=== PATIENT | male | born 1955 | race Caucasian/White ===

== ENCOUNTER 2018-07-09 21:14 | Emergency (ER) | payer BC, SELFPAY ==
[2018-07-09 21:19] VITALS: BP 154/88; PULSE 92; RESP 18; TEMP 37; O2SAT 97
--- NOTE | 2018-07-09 21:26 | W.ED.GENAD ---
Discharge Plan Disposition Patient Disposition: HOME Condition: Good Discharge Details Chief Complaint: GenMedical Clinical Impression: Bleeding Primary Care Provider: Francis Garza ED Provider: Josr Hill Home Meds and New Rx's Prescriptions: No Action multivitamin [Daily Vitamin] 1 EACH tablet 1 ea PO DAILY RF: 0 sildenafil [Viagra] 100 MG tablet 50 mg PO DAILY PRNQty: 10 RF: 11 ibuprofen [Advil] 200 MG tablet 400 mg PO Q6H PRN RF: 0 clotrimazole 45 GM cream 1 mindy Topical BID Qty: 1 RF: 0 diltiazem HCl 240 MG capsule,ext.rel 24h degradable 240 mg PO DAILY Qty: 90 RF: 3 rivaroxaban [Xarelto] 15 MG tablet 15 mg PO DAILY Qty: 90 RF: 3 furosemide [Lasix] 20 MG tablet 20 mg PO DAILY Qty: 90 RF: 3 losartan 50 MG tablet 50 mg PO DAILY Qty: 90 RF: 3 tramadol 50 MG tablet 50 mg PO QID PRN MDD 4 30 Days Qty: 120 RF: 0 magnesium oxide 400 MG tablet 400 mg PO BID Qty: 60 RF: 0 metoprolol tartrate 100 MG tablet 100 mg PO DAILY RF: 0 Discharge Instructions Instructions: Acute Wound Care (ED), Abrasion (ED) Additional Instructions: Please keep the area covered in bandage. Do not scratch at the area. If you notice any rebleeding return immediately. If you notice any worsening of your symptoms, or any new symptoms such as vomiting, diarrhea, fever, chills, shortness of breath, chest pain, numbness, weakness, or fainting , please return immediately to the emergency department for reevaluation. Please follow up with your primary care provider as soon as possible for reassessment and reevaluation. As always, it was a pleasure participating in your medical care today. Referrals: Francis Garza MD [Primary Care Provider] - Medical Decision Making This is a 63-year-old male who is on Xarelto for atrial fibrillation who presents today for evaluation of bleeding in his left lower foot. He scratched a scab, and then had bleeding after this. Roughly 30 minutes prior to arrival this occurred. It was wrapped and pressure gauze by EMS on their arrival, and he was brought immediately to the ER for evaluation. On evaluation in the ER the bleeding had completely subsided. The area was cleaned, and no bleeding is present. Patient will be discharged home with close follow-up. We discussed red flags which to return, the importance of keeping the foot elevated, and avoiding any trauma or scratching. Patient understands. Physical exam shows no signs of cellulitis, concerning edema, calf edema or calf pain. I have extensively reviewed the treatment plan and discharge instructions with the patient and their family. I have addressed all patient concerns at this time. The patient and family was made aware of what symptoms to monitor for that would warrant a return to the emergency department. Discussed the plan with the patient and family, they demonstrate verbal understanding and agreement with our assessment and plan at this time. HPI General Date/Time Provider Initiated Documentation: 07/09/18 21:25. HPI Narrative: This is a 63-year-old male who is on Xarelto for atrial fibrillation who presents today for bleeding. The patient states that he had a scab on his left lower ankle, which he picked at this evening, there is notable bleeding after this. EMS was called they applied a pressure dressing and brought him immediately to the ER. He thought that there was some squirting at the initial onset. He denies any lightheadedness, tachycardia, chest pain, fever, chills, warmth, pain, leg pain, numbness tingling or weakness. He denies any trauma or any other complaints. Related Data Home Medications Medication Instructions Recorded Confirmed multivitamin [Daily Vitamin] 1 ea PO DAILY 03/20/13 07/09/18 magnesium oxide 400 mg PO BID #60 tab 06/30/14 07/09/18 sildenafil [Viagra] 50 mg PO DAILY PRN #10 tab 11/26/14 07/09/18 ibuprofen [Advil] 400 mg PO Q6H PRN tab-cap 12/02/15 07/09/18 clotrimazole 1 mindy TOPICAL BID #1 tube 01/17/16 07/09/18 diltiazem HCl 240 mg PO DAILY #90 cap.er.deg 07/24/16 07/09/18 rivaroxaban [Xarelto] 15 mg PO DAILY #90 tab-cap 07/24/16 07/09/18 furosemide [Lasix] 20 mg PO DAILY #90 tab 10/25/16 07/09/18 losartan 50 mg PO DAILY #90 tab-cap 11/10/16 07/09/18 metoprolol tartrate 100 mg PO DAILY 02/15/17 07/09/18 tramadol 50 mg PO QID PRN 30 Days #120 tab 07/31/17 07/09/18 MDD 4 Previous Rx's Medication Instructions Recorded magnesium oxide 400 mg PO BID #60 tab 06/30/14 tramadol 50 mg PO QID PRN 30 Days #120 tab 07/31/17 MDD 4 Allergies Allergy/AdvReac Type Severity Reaction Status Date / Time No Known Allergies Allergy Unverified 09/25/17 13:16 General Stated Complaint: GenMedical RICKIE: 4 Review of Systems Review of Systems 10 point review of systems was performed, pertinent positives and negatives are noted in the history of present illness. PFSH Family History Grandfather Diabetes Grandmother Diabetes Medical History Anxiety Atrial fibrillation Dilated aortic root Diverticulosis Essential hypertension Pulmonary hypertension Vitamin D deficiency broken rt thumb (10/10/16) Social History Smoking/Tobacco Use Status: Former Tobacco Use Surgical History Colonoscopy - IV Sedation (01/15/15) Right knee surgery after injury Exam Narrative Exam Narrative: 1.Const: Well-nourished, Well-developed, appearing stated age 2.Eyes: PERRL, no conjunctival injection, and symmetrical lids. 3.ENT: Atraumatic external nose and ears. Moist MM. Neck: Symmetric, trachea midline, No thyromegaly. 4.CVS: +S1/S2, No murmurs or gallops. Peripheral pulses 2+ and equal in all extremities. Brisk capillary refill in all extremities. 5.RESP: Unlabored respiratory effort. Clear to auscultation bilaterally. No wheezes rales or rhonchi 6.GI: Soft, Nontender/Nondistended, No hepatosplenomegaly. No guarding or rebound. 7.MSK: Normocephalic/Atraumatic, Extremities w/o deformity or ttp No cyanosis or clubbing, Normal movement of all extremities 8.Skin: Patient demonstrates normal upper extremities bilaterally. Lower extremities demonstrate mild edema bilaterally, +1 pitting edema. Brisk capillary refill in all toes. Dorsalis pedis pulse +1 bilaterally. Left lower extremity demonstrates a small scab that has no acute bleeding at this time. No evidence of oozing. No other abnormalities. The area was cleaned and dried, there appears to be no evidence of laceration, or current bleeding. The area was wrapped with gauze for protection 9.Neuro: vice president of procurement II-XII grossly intact. Sensation grossly intact, no focal neurologic deficits. 10.Psych: (AAO) x3. Appropriate mood and affect Course Vital Signs Temperature 37.0 C 07/09/18 21:19 Pulse 92 H 07/09/18 21:19 Respiratory Rate 18 07/09/18 21:19 Blood Pressure 154/88 H 07/09/18 21:19 Pulse Oximetry 97 07/09/18 21:19 Temperature 37.0 C 07/09/18 21:19 Temperature Source Temporal Artery Scan 07/09/18 21:19 Pulse 92 H 07/09/18 21:19 Respiratory Rate 18 07/09/18 21:19 Respiratory Effort 07/09/18 21:21 Blood Pressure 154/88 H 07/09/18 21:19 Blood Pressure Position Sitting 07/09/18 21:19 Pulse Oximetry 97 07/09/18 21:19 Oxygen Delivery Method Room Air 07/09/18 21:19 Oxygen Flow Rate 0 07/09/18 21:19
[2018-07-09 21:47] VITALS: BP 154/88; PULSE 92; RESP 18; TEMP 37; O2SAT 97
[2018-07-10] MEDS: Silver Nitrate Stick 1 EACH (01:33)
== END 2018-07-09 21:47 | disposition home or self-care (01) ==
LOC: ER 21:44
PROVIDERS: Emergency Provider Student in an Organized Health Care Education/Training Program; PCP General Practice
DX: S90.812A Abrasion, left foot, initial encounter (principal); W26.8XXA Contact with other sharp object(s), not elsewhere classified, initial encounter; Z79.01 Long term (current) use of anticoagulants; I48.91 Unspecified atrial fibrillation; I10 Essential (primary) hypertension
CPT/HCPCS: 99283

== ENCOUNTER 2019-01-14 10:57 | Outpatient (CLI) | payer BC, SELFPAY ==
[2019-01-14 12:29] LABS: Hemoglobin A1C 6.4 % (4.5-6.2)
[2019-01-14 15:02] LABS: ALT 26 U/L (12-78); AST 17 U/L (15-37); Alkaline Phosphatase 105 U/L (46-116); Anion Gap 11.2 mmol/L (3-11); BUN 22 mg/dL (7-18); Bilirubin, Total 0.5 mg/dL (0.2-1.0); CO2 26.8 mmol/L (21.0-32.0); CREATININE 1.23 mg/dL (0.70-1.30); Chloride 97 mmol/L (98-107); Estimated GFR 59.24 (mL/min/1.73m2); Potassium 4.4 mmol/L (3.5-5.1); Sodium 135 mmol/L (136-145)
== END 2019-01-14 11:17 ==
PROVIDERS: PCP General Practice; Visit Provider General Practice
DX: I10 Essential (primary) hypertension (principal); R73.09 Other abnormal glucose
CPT/HCPCS: 36415; 80051; 84520; 82247; 82565; 83036; 84075; 84450; 84460

== ENCOUNTER 2020-07-09 10:23 | Emergency (ER) | payer OTHER, SELFPAY ==
[2020-07-09 10:33] VITALS: BP 160/94; PULSE 95; RESP 16; TEMP 36.4; O2SAT 97
--- NOTE | 2020-07-09 10:48 | ED.GENADUL_ITS ---
Discharge Plan Disposition Patient Disposition: HOME Condition: Stable Discharge Details Clinical Impression: Cellulitis, Open wound of lower leg Primary Care Provider: Destine[facility],Local ED Provider: Jacqueline Tejeda Home Meds and New Rx's Prescriptions: New cephalexin 500 mg tablet 500 mg PO BID 7 Days Qty: 14 RF: 0 Continued multivitamin [Daily Vitamin] 1 EACH tablet 1 ea PO DAILY RF: 0 ibuprofen [Advil] 200 MG tablet 400 mg PO Q6H PRN RF: 0 diltiazem HCl 240 MG capsule,ext.rel 24h degradable 240 mg PO DAILY Qty: 90 RF: 3 Xarelto 15 MG tablet 15 mg PO DAILY Qty: 90 RF: 3 losartan 50 MG tablet 50 mg PO DAILY Qty: 90 RF: 3 furosemide [Lasix] 20 mg tablet 20 mg PO DAILY Qty: 90 RF: 3 magnesium oxide 400 MG tablet 400 mg PO BID Qty: 60 RF: 0 metoprolol tartrate 100 MG tablet 100 mg PO DAILY RF: 0 Discharge Instructions Instructions: Cellulitis (ED), Acute Wounds (ED) Additional Instructions: Keep dressing on leg for the next 24 hours. Keep clean and dry. Apply pressure for 15 minutes if recurrent bleeding. Return to the ED if no stopping and bleeding. Increase your Lasix to 3 tablets a day for the next 2 days. You have been placed on a care management list to help establish PCP. Follow up with primary care provider in 3-5 days. Return to ED sooner if any worsening or concerns. Increase oral fluids. Medical Decision Making 65-year-old male presents to the ER with left lower extremity bleeding and an open wound. Patient denies any known trauma he reports having an episode of cellulitis and noted some drainage to his left lower extremity which turned in to bleeding he was unable to get the blood to stop. Upon initial exam he has a maxi pad wrapped around his ankle which is saturated in blood. He does have some erythema and some 2-3+ pitting edema noted to his bilateral lower extremities. Worse on the right. He has a small open wound noted to his left lower extremity which is oozing clear liquid no active bleeding noted at this time. He does have a history of atrial fibrillation, diverticulosis, hypertension, pulmonary hypertension, COPD, cellulitis, dilated aortic root. He does take Xarelto. He reports mild subjective fever couple days ago. He does not have a primary care provider at this time. 1219: No further bleeding noted from wound. There is clear fluid draining from leg. At this time chest x-ray pending. COMPARISON: CR CHEST 2 VIEWS PA,LAT from 04/19/2015 FINDINGS: MEDIASTINUM: Normal. HEART: Upper limits of normal. PULMONARY VASCULATURE: Normal. LUNGS: Clear. PLEURAL SPACE: No pleural effusion or pneumothorax. BONE:Within normal limits for the patient's age. OTHER FINDINGS:Normal. IMPRESSION: No acute pulmonary findings. CBC shows hemoglobin 11.9, hematocrit 36.8, sodium 135 which is at his baseline. BUN 47, creatinine 1.91, glucose 193 BNP is 2524. Patient was given Lasix 20 mg IV here in department. Ceftriaxone 1 g IV piggyback was also given. At this time findings are consistent with cellulitis and fluid overload. Patient placed on wound care management follow-up list to establish PCP. Instructed to increase Lasix to 3 times a day over the next couple of days. Discussed strict return instructions, verbalized understanding. HPI General Mode of arrival: ambulatory . Date/Time Provider Initiated Documentation: 07/09/20 10:29 . Limitations to Documentation: no limitations . Information obtained by: patient . HPI Narrative: 65-year-old male presents to the ER with left lower extremity bleeding and an open wound. Patient denies any known trauma he reports having an episode of cellulitis and noted some drainage to his left lower extremity which turned into bleeding he was unable to get the blood to stop. Upon initial exam he has a maxi pad wrapped around his ankle which is saturated in blood. He does have some erythema and some 2-3+ pitting edema noted to his bilateral lower extremities. Worse on the right. He has a small open wound noted to his left lower extremity which is oozing clear liquid no active bleeding noted at this time. He does have a history of atrial fibrillation, diverticulosis, hypertension, pulmonary hypertension, COPD, cellulitis, dilated aortic root. He does take Xarelto. He reports mild subjective fever couple days ago. He does not have a primary care provider at this time. Related Data Home Medications Medication Instructions Recorded Confirmed multivitamin [Daily Vitamin] 1 ea PO DAILY 03/20/13 07/09/20 magnesium oxide 400 mg PO BID #60 tab 06/30/14 07/09/20 ibuprofen [Advil] 400 mg PO Q6H PRN tab-cap 12/02/15 07/09/20 Xarelto 15 mg PO DAILY #90 tab-cap 07/24/16 07/09/20 diltiazem HCl 240 mg PO DAILY #90 cap.er.deg 07/24/16 07/09/20 losartan 50 mg PO DAILY #90 tab-cap 11/10/16 07/09/20 metoprolol tartrate 100 mg PO DAILY 02/15/17 07/09/20 furosemide 20 mg tablet 20 mg PO DAILY #90 tab 11/04/18 07/09/20 cephalexin 500 mg PO BID 7 Days #14 tab 07/09/20 Previous Rx's Medication Instructions Recorded magnesium oxide 400 mg PO BID #60 tab 06/30/14 furosemide 20 mg tablet 20 mg PO DAILY #90 tab 11/04/18 cephalexin 500 mg PO BID 7 Days #14 tab 07/09/20 Allergies Allergy/AdvReac Type Severity Reaction Status Date / Time No Known Allergies Allergy Unverified 09/25/17 13:16 General Stated Complaint: GenMedical RICKIE: 3 Review of Systems Narrative: Constitutional: Negative for weight loss, alert and oriented, well groomed, normal body habitus, appears comfortable. HEENT: Denies trauma, headaches, blurry vision, nasal discharge, sore throat, trouble swallowing. Chest: Denies chest pain, palpitations, irregular rhythm, positive history of hypertension. Respiratory: Denies cough, hemoptysis. Positive shortness of breath history of COPD. GI: Denies abdominal pain, nausea, vomiting, diarrhea, constipation. : Denies dysuria, hematuria, flank pain, rectal bleeding. Extremities: Has what appears to be chronic cellulitis and swelling to bilateral lower extremities, erythema, has an open wound noted to his left lower extremity which he reports was bleeding this morning. Neuro: Denies dizziness, blurry vision, weakness, syncope, headache or facial numbness. Hematologic: Denies intolerance to heat or cold, hair loss. [facility] Medical History Anxiety Atrial fibrillation broken rt thumb (10/10/16) Dilated aortic root Diverticulosis Essential hypertension Pulmonary hypertension Vitamin D deficiency Surgical History Colonoscopy - IV Sedation (01/15/15) Dr Templeton Right knee surgery after injury Family History Grandfather Diabetes Grandmother Diabetes Social History Smoking/Tobacco Use Status: Former Tobacco Use Alcohol Intake: current Alcohol Intake frequency: 0-2 drinks per day Alcohol type: beer Drug use: Rarely Substance use type: marijuana Do you feel safe at home: Yes Do you feel safe in your relationship?: Yes Exam Narrative Exam Narrative: Constitutional: Alert and oriented x3. Appears stated age. Obese body habitus. Head: Normocephalic, no trauma. Eyes: Pupils PERRLA, Red reflex noted, EOM's intact. Eyelids symmetrical without lesions, discharge, or swelling. ENT: Bilateral TM's WNL, External ear normal to inspection, no mastoid TTP, swelling, or erythema, Nasal turbinates WNL, no nasal discharge. Normal dentition, Posterior pharynx WNL, no exudate. Chest: RRR, Normal S1, S2, distal pulses intact. Resp: Lungs clear to auscultation bilaterally, no wheezes, rales, or rhonchi. Musculoskeletal: Normal gait, has 2-3+ pitting edema noted to his lower extrem ities. Which appears to be chronic. Has a abrasion noted to his left lower extremity approximately 3 cm x 2 cm, there is clear liquid oozing, no active bleeding at this time. Skin: No suspicious rashes or lesions. Capillary refill less than 2 sec. Neurologic: Cranial nerves II-XII intact. Alert and oriented x 3. DTR's intact. Hematologic/Lymphatic: No ecchymosis, no lymphadenopathy. Course Vital Signs Vital signs: Vital Signs Temperature 36.4 C L 07/09/20 10:33 Pulse 95 H 07/09/20 10:33 Respiratory Rate 16 07/09/20 10:33 Blood Pressure 160/94 H 07/09/20 10:33 Pulse Oximetry 97 07/09/20 10:33 Temperature 36.4 C L 07/09/20 10:33 Temperature Source Tympanic 07/09/20 10:33 Pulse 95 H 07/09/20 10:33 Respiratory Rate 16 07/09/20 10:33 Respiratory Effort Non-Labored 07/09/20 10:35 Blood Pressure 160/94 H 07/09/20 10:33 Blood Pressure Position Sitting 07/09/20 10:33 Pulse Oximetry 97 07/09/20 10:33 Oxygen Delivery Method Room Air 07/09/20 10:33 Oxygen Flow Rate 0 07/09/20 10:33 Pain Level 0 07/09/20 10:33 Lab/Test Results Lab/Test Results: 07/09/20 10:45 Blood Blood Culture - Pending 07/09/20 10:45 Blood Blood Culture - Pending
[2020-07-09 11:13] VITALS: RESP 16
[2020-07-09 11:17] LABS: Abs Immature Grans 0.02 10^3/uL (0.0-0.06); Absolute Basophil Count 0.03 10^3/uL (0.0-0.2); Absolute Eosinophil Count 0.16 10^3/uL (0.0-0.7); Absolute Monocyte Count 0.96 10^3/uL (0.1-0.8); Absolute Neutrophil Count 6.77 10^3/uL (1.2-6.7); Basophils % 0.4; Eosinophils % 1.9; HCT 36.8 % (40.0-50.0); HGB 11.9 g/dL (13.5-17.5); Immature Grans % 0.2; Lymphocytes % 5.9; MCH 31.6 pg (27.0-33.0); MCHC 32.3 % (32.0-36.0); MCV 97.6 fL (80-95); MPV 11.3 fL (8.0-11.0); Monocytes % 11.4; Neutrophils % 80.2; Nucleated RBC 0 %; Platelet Count 194 10^3/uL (130-400); RBC 3.77 10^6/uL (4.36-5.78); RDW 14.8 % (11.8-14.1); RDW-SD 53.3 fL; WBC 8.44 10^3/uL (4.4-10.8)
[2020-07-09 11:52] LABS: ALT 49 U/L (16-63); AST 38 U/L (15-37); Albumin 2.8 g/dL (3.4-5.0); Alkaline Phosphatase 108 U/L (46-116); Anion Gap 6.4 mmol/L (3-11); BUN 47 mg/dL (7-18); Bilirubin, Total 0.3 mg/dL (0.2-1.0); CO2 26.6 mmol/L (21.0-32.0); CREATININE 1.91 mg/dL (0.70-1.30); Calcium 9.3 mg/dL (8.5-10.1); Chloride 102 mmol/L (98-107); Estimated GFR 35.43 (mL/min/1.73m2); Glucose 193 mg/dL (74-106); Potassium 4.8 mmol/L (3.5-5.1); Sodium 135 mmol/L (136-145); Total Protein 7.9 g/dL (6.4-8.2)
[2020-07-09 11:58] LABS: NT-proBNP 2524 pg/mL (<300)
--- NOTE | 2020-07-09 12:28 | DI.RAD_ITS ---
EXAM: XR CHEST 2V PA LATERAL CLINICAL HISTORY: Leg swelling TECHNIQUE: 2D digital imaging was performed. COMPARISON: CR CHEST 2 VIEWS PA,LAT from 04/19/2015 FINDINGS: MEDIASTINUM: Normal. HEART: Upper limits of normal. PULMONARY VASCULATURE: Normal. LUNGS: Clear. PLEURAL SPACE: No pleural effusion or pneumothorax. BONE:Within normal limits for the patient's age. OTHER FINDINGS:Normal. IMPRESSION: No acute pulmonary findings. DATA REPOSITORY: RADIATION DOSE DELIVERED:
[2020-07-09] MEDS: Furosemide 20 MG/2 ML VIAL IVP (12:34)
[2020-07-09] MEDS: cefTRIAXone 1 GM/50 ML BAG IVPB (12:34)
[2020-07-09 12:38] VITALS: BP 156/71; PULSE 88; RESP 16; TEMP 36.6; O2SAT 98
--- NOTE | 2020-07-09 13:11 | NUR.NOTE ---
refferal to care management for PCP establishment. [facility] ED Nursing Note:
--- NOTE | 2020-07-10 19:50 | W.ED.FU ---
Reviewed blood culture aerobic growing gram positive cocci in chains and anaerobic gram-positive cocci in chains. I called and spoke with the patient he notes significant improvement in how he feels overall taking Keflex as prescribed. I advised given potential bacteremia he should return the emergency department immediately for reassessment likely IV antibiotics and admission. Patient notes he understands my concern and will return but probably not till the morning. He understands that condition may worsen and the delay in reassessment could result in worsening condition and could be life-threatening.
[2020-07-12 08:38] LABS: Lactate 1.3 mmol/L (0.9-1.7)
== END 2020-07-09 13:15 | disposition home or self-care (01) ==
PROVIDERS: Emergency Provider Registered Nurse Emergency
DX: L03.116 Cellulitis of left lower limb (principal); S81.802A Unspecified open wound, left lower leg, initial encounter; X58.XXXA Exposure to other specified factors, initial encounter; R60.0 Localized edema; Z79.01 Long term (current) use of anticoagulants; I10 Essential (primary) hypertension; J44.9 Chronic obstructive pulmonary disease, unspecified; Z87.891 Personal history of nicotine dependence
CPT/HCPCS: 36415; 80053; 87040; 87077; 96365; 96375; 99284; 71046; 83605; 83880; 85025; 87186; J0696; J1941

== ENCOUNTER 2020-07-11 07:44 | Inpatient (IN) | payer OTHER, SELFPAY ==
[2020-07-11 07:56] VITALS: BP 132/78; PULSE 99; TEMP 37.1; O2SAT 93
--- NOTE | 2020-07-11 08:16 | W.ED.GENAD ---
Discharge Plan Disposition Patient Disposition: [facility] INPATIENT Condition: Stable Discharge Details Clinical Impression: Cellulitis, CHF (congestive heart failure) Admit Date/Time: 07/11/20 09:35 Admit Provider: Georgie Hong Attending Provider: Georgie Hong Primary Care Provider: [place],[facility] ED Provider: Jacqueline Tejeda Medical Decision Making 65-year-old male presents to the ER after return of positive blood cultures. He was seen in the ED by myself 2 days ago diagnosed with bilateral lower extremity cellulitis and placed on cephalexin. Patient states that he has been taking the cephalexin as prescribed and overall feels better. Denies any fever or chills. His bilateral lower extremities have continued to weep no further bleeding noted. 2 days ago he did have some bleeding from a open lesion noted to his left lower extremity. Blood cultures from 2 days ago showed gram-positive cocci in both blood cultures. He does have a past medical history of hypertension, atrial fib, diverticulosis. He is a former smoker, endorses occasional alcohol. At this time will consult hospitalist regarding possible admission IV antibiotic of cefazolin ordered. Patient did receive ceftriaxone 1 g IV piggyback 2 days ago here in department and has been taking cephalexin twice daily for the last 2 days. 0933: Spoke with Dr. Hong discussed patient case in details she agrees to admit patient at this time. She does recommend chest x-ray, repeat blood cultures x2, and bilateral venous Dopplers of the lower extremities. Orders per her recommendations placed. Informed patient of plan of care he verbalizes understanding. Exam: XR Chest, 2 Views Exam date and time: 07/11/2020 10:34 AM Age: 65 years old Clinical indication: Shortness of breath; Patient HX: SOB TECHNIQUE: Imaging protocol: XR of the chest Views: 2 views. COMPARISON: CR XR CHEST 2V PA LATERAL 07/09/2020 12:18 PM FINDINGS: Lungs: The lungs are normally expanded and clear. Pleural space: Normal. Heart/Mediastinum: Normal heart and cardiomediastinal silhouette. Vasculature: Normal pulmonary vessel caliber. Normal aorta. Bones/joints: Contiguous calcification of the anterior spinal ligaments indicating diffuse idiopathic skeletal hyperostosis (DISH). IMPRESSION: No acute disease or suspicious finding. Thank you for allowing us to participate in the care of your patient. Dictated and Authenticated by: Milad Gil MD Patient admitted. HPI General Mode of arrival: ambulatory. Date/Time Provider Initiated Documentation: 07/11/20 07:59. Limitations to Documentation: no limitations. Information obtained by: patient. HPI Narrative: 65-year-old male presents to the ER after return of positive blood cultures. He was seen in the ED by myself 2 days ago diagnosed with bilateral lower extremity cellulitis and placed on cephalexin. Patient states that he has been taking the cephalexin as prescribed and overall feels better. Denies any fever or chills. His bilateral lower extremities have continued to weep no further bleeding noted. 2 days ago he did have some bleeding from a open lesion noted to his left lower extremity. Blood cultures from 2 days ago showed gram-positive cocci in both blood cultures. He does have a past medical history of hypertension, atrial fib, diverticulosis. He is a former smoker, endorses occasional alcohol. Related Data Home Medications Medication Instructions Recorded Confirmed multivitamin [Daily Vitamin] 1 ea PO DAILY 03/20/13 07/11/20 magnesium oxide 400 mg PO BID #60 tab 06/30/14 07/11/20 ibuprofen [Advil] 400 mg PO Q6H PRN tab-cap 12/02/15 07/11/20 Xarelto 15 mg PO DAILY #90 tab-cap 07/24/16 07/11/20 diltiazem HCl 240 mg PO DAILY #90 cap.er.deg 07/24/16 07/11/20 losartan 50 mg PO DAILY #90 tab-cap 11/10/16 07/11/20 metoprolol tartrate 200 mg PO BID 02/15/17 07/11/20 cephalexin 500 mg PO BID 7 Days #14 tab 07/09/20 07/11/20 furosemide [Lasix] 20 mg PO TID 07/11/20 07/11/20 Previous Rx's Medication Instructions Recorded magnesium oxide 400 mg PO BID #60 tab 06/30/14 cephalexin 500 mg PO BID 7 Days #14 tab 07/09/20 Allergies Allergy/AdvReac Type Severity Reaction Status Date / Time No Known Allergies Allergy Unverified 07/11/20 08:00 General Stated Complaint: Cellulitis RICKIE: 3 Review of Systems Narrative: Constitutional: Negative for weight loss, alert and oriented, well groomed, normal body habitus, appears comfortable. HEENT: Denies trauma, headaches, blurry vision, nasal discharge, sore throat, trouble swallowing. Chest: Denies chest pain, palpitations, irregular rhythm, hypertension. Respiratory: Denies Shortness of breath, cough, hemoptysis. GI: Denies abdominal pain, nausea, vomiting, diarrhea, constipation. : Denies dysuria, hematuria, flank pain, rectal bleeding. Neuro: Denies dizziness, blurry vision, weakness, syncope, headache or facial numbness. Hematologic: Denies easy bruising, intolerance to heat or cold, hair loss. [facility] Medical History Anxiety Atrial fibrillation broken rt thumb (10/10/16) Dilated aortic root Diverticulosis Essential hypertension Pulmonary hypertension Vitamin D deficiency Surgical History Colonoscopy - IV Sedation (01/15/15) Dr Templeton Right knee surgery after injury Family History Grandfather Diabetes Grandmother Diabetes Social History Smoking/Tobacco Use Status: Former Tobacco Use Alcohol Intake: current Alcohol Intake frequency: 0-2 drinks per day Alcohol type: beer Drug use: Rarely Substance use type: marijuana Do you feel safe at home: Yes Do you feel safe in your relationship?: Yes Exam Narrative Exam Narrative: Constitutional: Alert and oriented x3. Appears stated age. Normal body habitus. Head: Normocephalic, no trauma. Eyes: Pupils PERRLA, Red reflex noted, EOM's intact. Eyelids symmetrical without lesions, discharge, or swelling. ENT: Bilateral TM's WNL, External ear normal to inspection, no mastoid TTP, swelling, or erythema, Nasal turbinates WNL, no nasal discharge. Normal dentition, Posterior pharynx WNL, no exudate. Chest: RRR, Normal S1, S2, distal pulses intact. Resp: Lungs clear to auscultation bilaterally, no wheezes, rales, or rhonchi. Musculoskeletal: Normal gait, Skin: 4+ pitting edema noted to his right lower extremity erythema extending up to his right knee. 3+ pitting edema noted to his left lower extremity positive erythema, open wound noted to his left lateral ankle bilateral lower extremities are weeping. Chronic appearing skin pigmentation changes, there is a varicose vein noted to his anterior left lower extremity some dried blood noted. Neurologic: Cranial nerves II-XII intact. Alert and oriented x 3. DTR's intact. Hematologic/Lymphatic: No ecchymosis, no lymphadenopathy. Course Vital Signs Vital signs: Vital Signs Temperature 37.1 C 07/11/20 07:56 Pulse 99 H 07/11/20 07:56 Blood Pressure 132/78 07/11/20 07:56 Pulse Oximetry 93 07/11/20 07:56 Temperature 37.1 C 07/11/20 07:56 Temperature Source Skin 07/11/20 07:56 Pulse 99 H 07/11/20 07:56 Respiratory Effort Short of Breath 07/11/20 07:58 Blood Pressure 132/78 07/11/20 07:56 Blood Pressure Position Sitting 07/11/20 07:56 Pulse Oximetry 93 07/11/20 07:56 Oxygen Delivery Method Room Air 07/11/20 07:56 Oxygen Flow Rate 0 07/11/20 07:56 Pain Level 0 07/11/20 07:56
[2020-07-11] MEDS: ceFAZolin 1 GM/50 ML BAG IVPB ×2 (08:18→11:06)
[2020-07-11 08:22] LABS: Abs Immature Grans 0.05 10^3/uL (0.0-0.06); Absolute Basophil Count 0.03 10^3/uL (0.0-0.2); Absolute Eosinophil Count 0.05 10^3/uL (0.0-0.7); Absolute Lymphocyte Count 0.51 10^3/uL (1.2-3.4); Absolute Monocyte Count 1.59 10^3/uL (0.1-0.8); Absolute Neutrophil Count 8.42 10^3/uL (1.2-6.7); Basophils % 0.3; Eosinophils % 0.5; HCT 37.8 % (40.0-50.0); HGB 12.5 g/dL (13.5-17.5); Immature Grans % 0.5; Lymphocytes % 4.8; MCH 31.2 pg (27.0-33.0); MCHC 33.1 % (32.0-36.0); MCV 94.3 fL (80-95); MPV 10.2 fL (8.0-11.0); Monocytes % 14.9; Nucleated RBC 0 %; RBC 4.01 10^6/uL (4.36-5.78); RDW 14.5 % (11.8-14.1); RDW-SD 50.6 fL; WBC 10.65 10^3/uL (4.4-10.8)
[2020-07-11 08:34] LABS: C-Reactive Protein 10.94 mg/dL (0.0-0.3)
[2020-07-11 08:35] LABS: ALT 44 U/L (16-63); AST 30 U/L (15-37); Alkaline Phosphatase 87 U/L (46-116); Anion Gap 9.1 mmol/L (3-11); BUN 45 mg/dL (7-18); Bilirubin, Total 0.6 mg/dL (0.2-1.0); CO2 25.9 mmol/L (21.0-32.0); Calcium 9.1 mg/dL (8.5-10.1); Chloride 94 mmol/L (98-107); Estimated GFR 24.82 (mL/min/1.73m2); Glucose 164 mg/dL (74-106); Potassium 4.1 mmol/L (3.5-5.1); Sodium 129 mmol/L (136-145); Total Protein 8.3 g/dL (6.4-8.2)
[2020-07-11] MEDS: Normal Saline 1,000 ML 150 ML IV (08:45)
[2020-07-11 08:53] LABS: NT-proBNP 3068 pg/mL (<300)
[2020-07-11 08:53] LABS: Diff Comment Agrees w/ Instrument; Platelet Count 229 10^3/uL (130-400); Polychromasia Present
[2020-07-11 08:56] LABS: Procalcitonin 0.3 ng/mL
--- NOTE | 2020-07-11 09:45 | RT.EKG_ITS ---
APPROVED REPORT Exam: Resting ECG Patient Location: E HR:87 bpm ECG Measurements Heart Rate 87 AXIS UT [id number] P [id number] QRSd 105 QRS -49 QT 381 T 33 QTc 459 Conclusion Atrial fibrillation...V-rate 63- 88, irreg A-activity Left anterior fascicular block...axis(240,-40), init forces inf
[2020-07-11 10:16] LABS: FREE T4 1.03 ng/dL (0.76-1.46); TSH 4.91 uIU/mL (0.36-3.74)
[2020-07-11 10:17] LABS: Troponin I < 0.05 ng/mL (<0.06)
--- NOTE | 2020-07-11 10:34 | DI.RAD_ITS ---
EXAM: XR CHEST 2V PA LATERAL CLINICAL HISTORY: SOB TECHNIQUE: 2D digital imaging was performed. COMPARISON: CR XR CHEST 2V PA LATERAL from 07/09/2020 FINDINGS: MEDIASTINUM: Normal. HEART: Normal. PULMONARY VASCULATURE: Normal. LUNGS: Clear. PLEURAL SPACE: No pleural effusion or pneumothorax. BONE:Flowing osteophytes consistent with DISH OTHER FINDINGS:Normal. IMPRESSION: No acute pulmonary findings. DATA REPOSITORY: RADIATION DOSE DELIVERED:
--- NOTE | 2020-07-11 10:51 | DI.VRAD_ITS ---
PROCEDURE INFORMATION: Exam: XR Chest, 2 Views Exam date and time: 07/11/2020 10:34 AM Age: 65 years old Clinical indication: Shortness of breath; Patient HX: SOB TECHNIQUE: Imaging protocol: XR of the chest Views: 2 views. COMPARISON: CR XR CHEST 2V PA LATERAL 07/09/2020 12:18 PM FINDINGS: Lungs: The lungs are normally expanded and clear. Pleural space: Normal. Heart/Mediastinum: Normal heart and cardiomediastinal silhouette. Vasculature: Normal pulmonary vessel caliber. Normal aorta. Bones/joints: Contiguous calcification of the anterior spinal ligaments indicating diffuse idiopathic skeletal hyperostosis (DISH). IMPRESSION: No acute disease or suspicious finding. Dictated and Authenticated by: Milad Gil MD. Ordering:BELLA Phillips MD
[2020-07-11] MEDS: Furosemide 40 MG/4 ML VIAL IVP ×2 (11:07→16:19)
--- NOTE | 2020-07-11 11:38 | NUR.NOTE ---
Turning care of patient over to Richie Reyes rn. to admit. Stat med orders cefazolin and furosemide administered by this nurse. Discussed patients wound with him he is open to treatment options. Dr Hong notified she is going to writh orders for now pending wound consult to be performed by this nurse tomorrow. Nursing Note:
[2020-07-11 11:43] VITALS: BP 117/97; PULSE 94; RESP 20; TEMP 37.4; O2SAT 97
[2020-07-11 15:16] VITALS: BP 99/62; PULSE 83; RESP 20; TEMP 37.7; O2SAT 96
--- NOTE | 2020-07-11 15:57 | HPE_ITS ---
Date of service: 07/11/20 Assessment and Plan Assessment and plan (1) Cellulitis: Status: Acute Assessment and plan: To RLE. With chronic changes to BLEs and wound to LLE. Wound care per wound consult. Blood Cx growing Streptococcus species. Continue to monitor blood cultures. Repeat blood cultures taken today. Ceftriaxone IV. Pending lower extremity ultrasounds for asymmetric edema. (2) Bacteremia: Status: Acute Assessment and plan: As above, from cellulitis of the right lower extremity. Blood Cx growing Streptococcus species. Continue to monitor blood cultures. Repeat blood cultures taken today. Ceftriaxone IV. Echo pending. (3) Open wound of lower leg: Status: Acute Assessment and plan: Potential portals of entry to bilateral lower extremities. (4) CHF (congestive heart failure): Status: Chronic Assessment and plan: His BNP is elevated at 3068, his shortness of breath with activity, and increased edema in his lower extremities. IV Lasix 40 mg twice daily. Monitor intake and output. Low-sodium diet. (5) Atrial fibrillation with RVR: Status: Acute Assessment and plan: Rate controlled with metoprolol 200 mg p.o. twice daily. Continue Cardizem and anticoagulation with Xarelto. Monitor on telemetry. (6) HTN (hypertension): Status: Chronic Assessment and plan: He is not hypertensive on admission. Continue to monitor blood pressure. Hold losartan in the setting of acute kidney injury. (7) Acute kidney injury: Status: Acute Assessment and plan: As above, hold losartan. Repeat BMP tomorrow. (8) Pulmonary hypertension: Status: None Assessment and plan: Echo pending. (9) DVT prophylaxis: Status: Acute Assessment and plan: Continue Xarelto. (10) Discharge planning issues: Status: Acute Assessment and plan: He is a full code. This case was discussed with Dr. Hong who is in agreement. History of Present Illness History of Present Illness Chief Complaint: Lower extremity cellulitis Narrative: Jossy Shanks is a very pleasant 65-year-old man with a past medical history significant for congestive heart failure, atrial fibrillation, hypertension, COPD, with a [id number]-aszo smoking history, he quit in 2009, pulmonary HTN, as well as recurrent cellulitis of the lower extremities. He initially presented to the emergency department on 07/09/2020 with a bleeding wound to his left lower extremity. He was thought to have cellulitis and CHF exacerbation. He was given ceftriaxone and IV Lasix and discharged home with an increased Lasix dose and oral Keflex. At the time of his visit, he did not have leukocytosis, and he was afebrile. He was called back by the emergency depart ment last night because his blood cultures were noted to be positive. He presented back to the emergency department today as directed. His blood cultures are growing Streptococcus. He reports that he is feeling since he has been on the Keflex. He is no longer experiencing chills, he has been afebrile at home. He endorses shortness of breath with activity, he has an occasional cough productive of thick yellow sputum, which is his baseline. He does not feel wheezy. He is able to eat and drink and tolerate his diet now, he did not eat for a few days at home. He denies nausea, vomiting, diarrhea. He reports increased edema and erythema to bilateral lower extremities, R>L. Review of Systems All systems reviewed & are unremarkable except as noted in HPI and below PFSH Medical History Anxiety Atrial fibrillation broken rt thumb (10/10/16) Dilated aortic root Diverticulosis Essential hypertension Pulmonary hypertension Vitamin D deficiency Surgical History Colonoscopy - IV Sedation (01/15/15) Dr Templeton Right knee surgery after injury Family History Grandfather Diabetes Grandmother Diabetes Social History Smoking/Tobacco Use Status: Former Tobacco Use Alcohol Intake: current Alcohol Intake frequency: 0-2 drinks per day Alcohol type: beer Drug use: Rarely Substance use type: marijuana Do you feel safe at home: Yes Do you feel safe in your relationship?: Yes Meds Home Medications and Allergies Home Medications Medication Instructions Recorded Confirmed Type multivitamin [Daily Vitamin] 1 ea PO DAILY 03/20/13 07/11/20 History magnesium oxide 400 mg PO BID #60 tab 06/30/14 07/11/20 Rx ibuprofen [Advil] 400 mg PO Q6H PRN tab-cap 12/02/15 07/11/20 History Xarelto 15 mg PO DAILY #90 tab-cap 07/24/16 07/11/20 History diltiazem HCl 240 mg PO DAILY #90 cap.er.deg 07/24/16 07/11/20 History losartan 50 mg PO DAILY #90 tab-cap 11/10/16 07/11/20 History metoprolol tartrate 200 mg PO BID 02/15/17 07/11/20 History cephalexin 500 mg PO BID 7 Days #14 tab 07/09/20 07/11/20 Rx furosemide [Lasix] 20 mg PO TID 07/11/20 07/11/20 History Allergies Allergy/AdvReac Type Severity Reaction Status Date / Time No Known Allergies Allergy Unverified 07/11/20 08:00 Exam Narrative Exam Narrative: General: 65 year old man, appears older than stated age and chronically ill. Sitting in bed, watching football game, alert and oriented, pleasant and talkative. HEENT: normocephalic, atraumatic, pupils equal and round, EOMI, mucous membranes moist. Neck: supple. Cardiovascular: irregularly irregular HR, nontachycardic, 3/6 murmur noted at LSB. Respiratory: lung sounds diminished throughout with few scattered wheezes. Appe ars mildly SOB with speaking. GI: large round abdomen, +BS, nondistended, nontender on palpation. Extremities: 3-4+ pitting edema to RLE with intense erythema up to his knee and extending beyond the knee posteriorly. Area of excoriation to the posterior aspect of his lower right leg. Skin thickening/changes noted to RLE. 2+ pitting edema to LLE with dressing over distal aspect, with + clear/yellow drainage. Results Labs Result diagrams: 07/11/20 08:10 07/11/20 08:10 Labs: Laboratory Results - last 24 hr 07/11/20 07/11/20 07/11/20 08:10 08:10 08:10 WBC 10.65 RBC 4.01 L Hgb 12.5 L Hct 37.8 L MCV 94.3 MCH 31.2 MCHC 33.1 RDW 14.5 H Plt Count 229 MPV 10.2 Immature Gran % 0.5 Neutrophils % 79.0 Lymphocytes % 4.8 Monocytes % 14.9 Eosinophils % 0.5 Basophils % 0.3 Nucleated RBC % 0 Absolute Neutrophils 8.42 H Absolute Lymphocytes 0.51 L Absolute Monocytes 1.59 H Absolute Eosinophils 0.05 Absolute Basophils 0.03 RBC Morphology See below Polychromasia Present Sodium 129 L Potassium 4.1 Chloride 94 L Carbon Dioxide 25.9 Anion Gap 9.1 BUN 45 H Creatinine 2.60 H Estimated GFR/1.73 m2 24.82 Glucose 164 H Calcium 9.1 Total Bilirubin 0.6 AST 30 ALT 44 Alkaline Phosphatase 87 Troponin I C-Reactive Protein NT-Pro-B Natriuret Pep Total Protein 8.3 H Albumin 3.0 L Procalcitonin 0.3 TSH Free T4 07/11/20 07/11/20 08:10 08:24 WBC RBC Hgb Hct MCV MCH MCHC RDW Plt Count MPV Immature Gran % Neutrophils % Lymphocytes % Monocytes % Eosinophils % Basophils % Nucleated RBC % Absolute Neutrophils Absolute Lymphocytes Absolute Monocytes Absolute Eosinophils Absolute Basophils RBC Morphology Polychromasia Sodium Potassium Chloride Carbon Dioxide Anion Gap BUN Creatinine Estimated GFR/1.73 m2 Glucose Calcium Total Bilirubin AST ALT Alkaline Phosphatase Troponin I < 0.05 C-Reactive Protein 10.94 H NT-Pro-B Natriuret Pep 3068 H Total Protein Albumin Procalcitonin TSH 4.91 H Free T4 1.03 Last Vital Signs Temp 37.7 C H 07/11/20 15:16 Pulse 83 07/11/20 15:16 Resp 20 07/11/20 15:16 BP 99/62 L 07/11/20 15:16 Pulse Ox 96 07/11/20 15:16 COVID-19 Screening Have you,or household,traveled outside [place] in last 14 days?: No Had IN PERSON contact w/suspected or confirmed C-19 person: No
[2020-07-11] MEDS: Normal Saline Flush 10 ML SYR IVP (16:19)
[2020-07-11] MEDS: cefTRIAXone 2 GM/50 ML BAG IVPB (16:25)
[2020-07-11 19:10] VITALS: BP 117/74; PULSE 106; RESP 19; TEMP 37.8; O2SAT 97
[2020-07-11] MEDS: Metoprolol 50 MG TAB 200 MG PO (20:18)
[2020-07-11] MEDS: Magnesium Oxide 400 MG TAB PO (20:18)
[2020-07-11 22:20] LABS: COVID-19 RT-PCR UVMMC Result Negative (Negative)
[2020-07-11 23:45] VITALS: BP 129/78; PULSE 83; RESP 19; TEMP 36.7; O2SAT 95
[2020-07-12] VITALS (7 sets, daily range): BP systolic 105–135; BP diastolic 71–84; PULSE 74–98; RESP 17–20; TEMP 36.5–37.1; O2SAT 94–97
--- NOTE | 2020-07-12 | DI.US_ITS ---
EXAM: US AAA SCREENING CLINICAL HISTORY: US abdominal aorta - PAD COMPARISON: No exams were available for comparison FINDINGS: Abdominal Aorta: Proximal: 2.5 x 2.8 cm Mid: 2.7 x 2.8 cm Distal: Obscured by bowel gas. Iliacs: Right: Obscured Left: Obscured Exam is limited by patient body habitus. The distal abdominal aorta and iliac arteries were not well seen. IMPRESSION: No evidence of abdominal aortic aneurysm. DATA REPOSITORY:
[2020-07-12 07:34] LABS: Abs Immature Grans 0.07 10^3/uL (0.0-0.06); Absolute Basophil Count 0.04 10^3/uL (0.0-0.2); Absolute Eosinophil Count 0.14 10^3/uL (0.0-0.7); Absolute Lymphocyte Count 0.76 10^3/uL (1.2-3.4); Absolute Monocyte Count 1.82 10^3/uL (0.1-0.8); Basophils % 0.4; Eosinophils % 1.5; HCT 32.6 % (40.0-50.0); Immature Grans % 0.8; Lymphocytes % 8.3; MCH 31.2 pg (27.0-33.0); MCHC 33.7 % (32.0-36.0); MCV 92.4 fL (80-95); MPV 11.2 fL (8.0-11.0); Monocytes % 19.9; Nucleated RBC 0 %; Platelet Count 251 10^3/uL (130-400); RBC 3.53 10^6/uL (4.36-5.78); RDW 14.3 % (11.8-14.1); RDW-SD 49.1 fL; WBC 9.14 10^3/uL (4.4-10.8)
[2020-07-12 07:52] LABS: Anion Gap 6.8 mmol/L (3-11); BUN 59 mg/dL (7-18); C-Reactive Protein 10.54 mg/dL (0.0-0.3); CO2 26.2 mmol/L (21.0-32.0); CREATININE 3.13 mg/dL (0.70-1.30); Calcium 8.8 mg/dL (8.5-10.1); Chloride 95 mmol/L (98-107); Estimated GFR 20.04 (mL/min/1.73m2); Glucose 135 mg/dL (74-106); Magnesium 2.1 mg/dL (1.8-2.4); Potassium 3.8 mmol/L (3.5-5.1); Sodium 128 mmol/L (136-145)
--- NOTE | 2020-07-12 08:00 | DI.US_ITS ---
EXAM: US RENAL CLINICAL HISTORY: FISH on CKD. TECHNIQUE: Aguila scale, color and spectral Doppler were used. COMPARISON: US RENAL ULTRASOUND(P) {[id number]} from 07/27/2014 FINDINGS: The exam is limited by patient body habitus. Renal size in cm: Right: 12.5 left: 13.3 Echogenicity: Normal Hydronephrosis: No Cyst or mass: None visible Nephrolithiasis: No Other findings: The patient voided before the exam and the bladder was not evaluated. IMPRESSION: No evidence of hydronephrosis. Limited exam. DATA REPOSITORY:
[2020-07-12 08:03] LABS: Absolute Neutrophil Count 6.32 10^3/uL (1.2-6.7); Diff Comment Diff Reviewed; Neutrophils % 69.1; Polychromasia Present
[2020-07-12] MEDS: Multivitamin TAB 1 TAB PO (08:10)
[2020-07-12] MEDS: dilTIAZem CD 120 MG CAPCR 240 MG PO (08:10)
[2020-07-12] MEDS: Rivaroxaban 15 MG TABLET PO (08:10)
[2020-07-12] MEDS: Metoprolol 50 MG TAB 200 MG PO ×2 (08:10→22:21)
[2020-07-12] MEDS: Magnesium Oxide 400 MG TAB PO ×2 (08:11→22:21)
--- NOTE | 2020-07-12 09:30 | DI.US_ITS ---
EXAM: US EXTREMITY VENOUS BI CLINICAL HISTORY: Lower extremity swelling. TECHNIQUE: Bilateral lower extremity venous ultrasound performed using grayscale, color-flow, and sp ectral Doppler analysis. COMPARISON: No exams were available for comparison FINDINGS: Exam is mildly limited by patient body habitus. The bilateral common femoral, femoral and popliteal veins demonstrate normal compressibility, augmentation, and color Doppler. The posterior tibial veins are patent. IMPRESSION: Right: Negative for DVT Left: Negative for DVT DATA REPOSITORY:
--- NOTE | 2020-07-12 11:38 | PDOC.CMIN ---
- If Service Date Differs Date of service: 07/12/20 Time of Service: 11:38 Care Management Initial Assess REASON FOR HOSPITALIZATION:: Cellulitis BLE's, bacteremia PAST MEDICAL HISTORY/PAST SURGICAL HISTORY:: Anxiety, atrial fib, diverticulitis, HTN, pulmonary HTN, Vit D deficiency. PREVIOUS FUNCTIONAL STATUS/SOCIAL/FAMILY SUPPORTS:: Jossy lives in [place], [place] he is retired and lives alone. He has grown children in the area and extended family. He is independent at baseline with care and transportation. He has not had a primary care since retired. CURRENT FUNCTIONAL STATUS:: Jossy is sitting up in his chair in his room, he is alert and engaged. He states that he is insterested in obtaining a primary care he would prefer a male provider. He states he left [facility] when Dr. Drew left and went to Dr. Garza he has been without a provider since his senior living. Jossy is insterested in completing his advance directives and signing up for Portal. ADVANCE DIRECTIVES:: None on file will complete at this admission Has patient been provided with info about the portal/API?: Yes Did the patient sign up for the portal?: Yes CODE STATUS:: Full Code INSURANCE COVERAGE / FINANCIAL ISSUES:: Medicare replacement plan CURRENT HOME/COMMUNITY SERVICES/EQUIPMENT:: No current servcies PRIMARY CARE PHYSICIAN:: None will assist in follow up and obtaining new pcp. POTENTIAL DISCHARGE NEEDS:: New pcp established PATIENT/FAMILY EDUCATION NEEDS:: Discharge education, limitations and follow up plan of care including ask me three and self management. ANTICIPATED BARRIERS TO DISCHARGE:: None TRANSPORTATION:: Via private car wt family. PLAN:: Jossy will be discharged when medically ready, CM will assist in establishing new primary care provider. CM will continue to asses for ongoing discharge needs and disposition.
--- NOTE | 2020-07-12 12:15 | PHA.REVIEW ---
Pharmacy Admission Review - Admission Clinical Review (Last Updated 07/11/20 @ 16:27 by Kusum Dobbins NP) Acute kidney injury (Acute) Bacteremia (Acute) Discharge planning issues (Acute) DVT prophylaxis (Acute) Cellulitis (Acute) Open wound of lower leg (Acute) Atrial fibrillation with RVR (Acute) No Known Allergies Allergy (Unverified 07/11/20 08:00) Height 5 ft 6.06 in Weight 167.8 kg - Renal Dosing Renal Dosing: BUN 59 mg/dL (7-18) H D 07/12/20 06:26 Creatinine 3.13 mg/dL (0.70-1.30) H D 07/12/20 06:26 Medications needing adjustments: Reviewed (Crcl ~34.6 mL/min using adjusted body weight. Current meds okay.) - Anticoagulation Anticoagulation: Hgb 11.0 g/dL (13.5-17.5) L 07/12/20 06:26 Hct 32.6 % (40.0-50.0) L 07/12/20 06:26 Plt Count 251 10^3/uL (130-400) 07/12/20 06:26 Creatinine 3.13 mg/dL (0.70-1.30) H D 07/12/20 06:26 DVT Prohphylaxis: N/A Therapeutic Anticoagulation: Reviewed Medications: Rivaroxaban - Opiate Usage Evaluate Pain Scale/Pains Meds: N/A - Relevant Labs Sodium 128 mmol/L (136-145) L 07/12/20 06:26 Potassium 3.8 mmol/L (3.5-5.1) 07/12/20 06:26 Chloride 95 mmol/L (98-107) L 07/12/20 06:26 Magnesium 2.1 mg/dL (1.8-2.4) 07/12/20 06:26 C-Reactive Protein 10.54 mg/dL (0.0-0.3) H 07/12/20 06:26 Electrolytes, C-Reactive P, ESR: Reviewed - DM Control DM Control: Glucose 135 mg/dL (74-106) H 07/12/20 06:26 Finger Stick Blood Glucose 142 Insulin Dosing: Intervened (not on any meds for this at home, pt's A1c last year was 6.4. Will mention to provider.) - Heart Failure/OH Heart Failure/OH: Troponin I < 0.05 ng/mL (<0.06) 07/11/20 08:24 NT-Pro-B Natriuret Pep 3068 pg/mL (<300) H 07/11/20 08:24 EF%, SALLIE's, B-Blockers, Diuretics: Reviewed - BP Control BP Control: Blood Pressure 120/77 Blood Pressure 135/84 Blood Pressure 105/71 If elevated: N/A - Qtc Review If Elevated: N/A (QTc 459) - IV to PO Switch IV Medications: Reviewed - Home Meds Home Med List reviewed: Reviewed (Separate admin of cephalexin from multivitamin. Ibuprofen may diminish the diuretic effect of furosemide; furosemide may enhance the nephrotoxic effect of ibuprofen. Ibuprofen may enhance the bleed risk of rivaroxaban.) Relevent Home Meds Not ordered & why?: cephalexin (has other abx ordered), furosemide (ordered but on hold, MD mentioned possible furosemide drip), ibuprofen (PRN), losartan (on hold due to FISH) - Current meds Current Medication Order Review: Reviewed - Comments Comments/Follow Ups: Watch BP, BG, SCr, electrolytes, CRP, BNP and for med changes (restart of losartan and furosemide, renal adjustments) Antibiotic Activity - Pharmacy Antibiotic Review Pharmacy Antibiotic Activity: C/S review (ceftriaxone continues for cellulitis, repeat BC no growth @24 hours)
--- NOTE | 2020-07-12 14:20 | W.NUTCONSULT ---
Date of service: 07/12/20 Time of Service: 14:20 Nutritional Consult ASSESSMENT: 65 year old male admitted with FISH with hx of CHF, HTN COPD with LLE infection with cellulitis. BMI: 60 indicates morbid obesity. Currently NPO for test today, was consuming 100% of meal previously(Diabetic Diet). Glucose elevated as result of infection, no hx of DM. Met with Gale today. We discussed nutrient needs for optimal healing. He reports good appetite and willing to eat double portions of protein at meals, liquid protein 1 oz BID for increased protein needs. Estimated Needs: [id number] kcal, 105-135g protein. NUTRITIONAL DIAGNOSIS: Increased nutrient needs in view of open wound on LLE INTERVENTION: Diabetic Diet with double protein at meals- provides 100 g protein daily Liquid protein 1 oz BID- provides 30 grams protein daily Offered weight management counseling when discharged. MONITORING AND EVALUATION: Will monitor labs, intake, weight, wound healing. Time Spent in Nutritional Counseling and Treatment: 15 min spent face to face
--- NOTE | 2020-07-12 14:30 | WOUNDCONS ---
- If Service Date Differs Date of service: 07/12/20 Time of Service: 14:00 Wound Initial Evaluation Narrative: Patient is a 65 yom, seen here for CHF, and GPC within a wound. H&P, Allergies, Labs and other pertinent data were reviewed . - Wound Left Lateral Ankle Wound Type: Statis Ulcer Wound General Appearance: Well Approximated, Reddened, Draining, Unapproximated Wound Bed Greatest Portion: Pale [place] Wound Surrounding Tissue Appearance: Dark Red Percent of Wound Bed Granulated/Red: 0 Percent of Wound Bed Slough/Yellow: 0 Percent of Wound Bed Eschar/Black: 0 Wound Length: 2.4 cm Wound Width: 0.9 cm Wound Depth: 0.1 cm Wound Drainage Amount: Moderate Wound Drainage Odor: None/Absent Wound Drainage Description: Serous Wound Topical Solution/Irrigant: Antibiotic Irrigant Wound Debridement Method: Mechanical Wound Debridement Result: Healthy Tissue Revealed Wound Debridement Amount of Tissue Removed: Minimal - Circulation, Sensation, Motion Edema Degree: 3+ Peripheral Pulse Strength: Weak Capillary Refill: Less than 3 seconds Sensation Description: Numbness Skin Temperature: Warm Skin Color: Juan Manuel - ANGY Left ANGY: 1.15 Right ANGY: 0.98 - Pain Pain Level: 0 Pain Scale Used: Visual Analog Scale 0-10 (denies pain) This a patient that presented to the ED several days ago for an oozing wound and cellulitis. Patient was dc to home with abx. Patient was called back to the hospital when GPC was found in the blood cultures. Patient stated that the statis ulcer appeared several weeks ago and he had been taking carte of it at home as he does not currently have a pcp. Plan is to control fluid and edema using absorption and to compress patients legs, while he is here recieving abx treatment. Both legs have brawny edema , fissures within the skin, and thick micotic toenails. Doppler needed to confirm pulse on right foot. ANGY performed to provide vascular data for hospitalist. Patient has been educated on the plan of care, with rationales and goal of care explained to the patient. - Treatment/Dressing Change Topicals/Ointments: None Cleanse With: Anasept, Debrisoft Dressing Types: ABD Pad, Kerlix (Gauze Roll), Other (derek wraps) Dressing Comment: Poidiatry consulted for thick micotic toes. Nutrition consult for education on proper food for wound healing - Recomendation Recomendation:: Both legs: Cleanse leg with Anasept spray and debrisoft sponge, then pat dry. Apply Ammonium lactate. cover with derek wraps Change Daily or prn Left lateral ankle After the leg is cleaned. Cover open area with abd pad, Secure with Kerlix. compress with derek wrap. Change daily or prn Physcian/Nurse Practioner Notified: Yes (Dr. Hong) Referrals: Dietary, Podiatry Treatment Time - Time Total Time Spent with Patient: 35minutes - Patient Will be Seen Weekly Treatment: daily
--- NOTE | 2020-07-12 15:11 | CHAPLAIN ---
Jossy was sitting up in bed when I visited. He had a visitor/family member with him. I dropped of a copy of an Advance Directive from Care Management for him. I explained my role and offered support. I plan to visit Jossy again.
[2020-07-12] MEDS: cefTRIAXone 2 GM/50 ML BAG IVPB (15:56)
--- NOTE | 2020-07-12 16:08 | W.PM.PROGNOT ---
Date of Service Date of service: 07/12/20 Time of Service: 16:09 Assessment and Plan Assessment and plan (1) Cellulitis: Status: Acute Assessment and plan: With Group B strep bacteremia, RLE the likely culprit. Improving. Continue wound care and high dose ceftriaxone. Repeat blood cultures negatives. Await echo. (2) Bacteremia: Status: Acute Assessment and plan: As above. (3) Open wound of lower leg: Status: Acute Assessment and plan: Continue wound care. (4) Acute on chronic diastolic CHF (congestive heart failure), NYHA class 1: Status: Acute Assessment and plan: Given FISH and presence of pulmonary hypertension, I think the patient would do better with lasix gtt. Monitor I/O's and daily weights. (5) Acute kidney injury: Status: Acute Assessment and plan: Continue to hold losartan. Does continue to require diuresis, but will switch to lasix gtt. US renal negative. Monitor for urinary retention. Godinez catheter offered - the patient is not sure he will accept it. (6) Atrial fibrillation: Status: Chronic Assessment and plan: Rate is controlled - no change in tx. Would continue to monitor on tele to ensure the rate does not become elevated and contributes to CHF. (7) HTN (hypertension): Status: Chronic Assessment and plan: Continue to hold losartan (8) Pulmonary hypertension: Status: None Assessment and plan: Start lasix gtt. needs a sleep study. Await echo. (9) PAD (peripheral artery disease): Status: Acute Assessment and plan: Refer to vascular surgery as outpatient. Await US of abdominal aorta. (10) DVT prophylaxis: Status: Acute Assessment and plan: Continue Xarelto. (11) Discharge planning issues: Status: Acute Assessment and plan: Full code. Continues to require hospitalization Subjective Subjective Interval history since last seen: Mr Shanks feels a lot better today. He states he feels stronger. His legs look better, but the RLE remains erythematous. He denies dizziness, chest pain, shortness of breath, nausea. He thinks his legs are less swollen. He has a dry cough. He was told before to have a sleep study, but he at the time did not. B ABIs today c/w BLE PAD. Exam Narrative Exam Narrative: General: Very pleasant obese male, A&Ox3, does not look toxic HEENT: EOMI, MMM Heart: irregularly irregular rhythm, no m/r/g Lungs: crackles at R base Abdomen: soft, nontender, nondistended Extremities: BLE edema, R>L, BLEs wrapped. Objective Last Vital Signs Temp 37 C 07/12/20 11:31 Pulse 84 07/12/20 11:31 Resp 17 07/12/20 11:31 BP 120/77 07/12/20 11:31 Pulse Ox 95 07/12/20 11:31 Laboratory Results - last 24 hr 07/11/20 07/12/20 07/12/20 08:50 06:26 06:26 WBC 9.14 RBC 3.53 L Hgb 11.0 L Hct 32.6 L MCV 92.4 MCH 31.2 MCHC 33.7 RDW 14.3 H Plt Count 251 MPV 11.2 H Immature Gran % 0.8 Neutrophils % 69.1 Lymphocytes % 8.3 Monocytes % 19.9 Eosinophils % 1.5 Basophils % 0.4 Nucleated RBC % 0 Absolute Neutrophils 6.32 Absolute Lymphocytes 0.76 L Absolute Monocytes 1.82 H Absolute Eosinophils 0.14 Absolute Basophils 0.04 RBC Morphology See below Polychromasia Present Sodium 128 L Potassium 3.8 Chloride 95 L Carbon Dioxide 26.2 Anion Gap 6.8 BUN 59 H D Creatinine 3.13 H D Estimated GFR/1.73 m2 20.04 Glucose 135 H Calcium 8.8 Magnesium 2.1 C-Reactive Protein 10.54 H COVID-19 PCR Negative Nasopharyn COVID-19 PCR Not Applicable Ref Test Perform Site [facility] Objective Narrative Objective Narrative: US renal; No evidence of hydronephrosis. Limited exam. Venous dopplers BLEs: Right: Negative for DVT Left: Negative for DVT
--- NOTE | 2020-07-12 19:51 | NUR.NOTE ---
Nursing Note: lasix drip was started as ordered this afternoon. Godinez catheter was ordered for patient. He is not comfortable;e having catheter inserted. Pro' and cons were discussed with the patient, particularly that patient would be up frequently over night voiding. With the information shard. Patient still felt that he did not want a catheter. It was left that if the patient changed his mind that the order was in place and he could ask to have one instilled at any time
[2020-07-12] MEDS: Protein Nutritional Supplement 16 GM 1 OUNCE PACKET PO (22:22)
[2020-07-13] VITALS (8 sets, daily range): BP systolic 114–129; BP diastolic 70–83; PULSE 80–94; RESP 16–22; TEMP 35.8–37.2; O2SAT 94–98
[2020-07-13 07:24] LABS: Abs Immature Grans 0.05 10^3/uL (0.0-0.06); Absolute Basophil Count 0.05 10^3/uL (0.0-0.2); Absolute Eosinophil Count 0.24 10^3/uL (0.0-0.7); Absolute Lymphocyte Count 0.85 10^3/uL (1.2-3.4); Absolute Monocyte Count 1.23 10^3/uL (0.1-0.8); Absolute Neutrophil Count 5.92 10^3/uL (1.2-6.7); Basophils % 0.6; Eosinophils % 2.9; HCT 36.1 % (40.0-50.0); Immature Grans % 0.6; Lymphocytes % 10.2; MCHC 33.2 % (32.0-36.0); MCV 93.3 fL (80-95); MPV 10.7 fL (8.0-11.0); Monocytes % 14.7; Nucleated RBC 0 %; Platelet Count 294 10^3/uL (130-400); RBC 3.87 10^6/uL (4.36-5.78); RDW 14.2 % (11.8-14.1); RDW-SD 48.4 fL; WBC 8.34 10^3/uL (4.4-10.8)
[2020-07-13 07:40] LABS: Anion Gap 8.8 mmol/L (3-11); BUN 59 mg/dL (7-18); CO2 27.2 mmol/L (21.0-32.0); CREATININE 2.39 mg/dL (0.70-1.30); Calcium 9.1 mg/dL (8.5-10.1); Chloride 96 mmol/L (98-107); Estimated GFR 27.35 (mL/min/1.73m2); Glucose 153 mg/dL (74-106); Magnesium 2.4 mg/dL (1.8-2.4); Potassium 4.2 mmol/L (3.5-5.1); Sodium 132 mmol/L (136-145)
--- NOTE | 2020-07-13 08:00 | DI.US_ITS ---
APPROVED REPORT EXAM: Comprehensive 2D, Doppler, and color-flow Echocardiogram Patient Location: In-Patient Room/Bed: 209 Business Information Manager: Salina Vega RDCS (AE) Indications: CHF Other Information Study Quality: Fair Conclusion Left Ventricle : The left ventricle is normal size. The left ventricular systolic function is normal. The left ventricular ejection fraction is within the normal range. There is normal left ventricular wall thickness. There is normal LV segmental wall motion. The left ventricular diastolic function is normal. LVEF is 55%. Right Ventricle : The right ventricle is normal size. The right ventricular systolic function is norm al. Atria : Left atrium is mildly dilated. Right atrium is mildly dilated. Mitral Valve : Mild mitral annular calcification. Mild mitral regurgitation. No evidence of mitral va lve stenosis. Great Vessels : The aortic root is normal in size. The ascending aorta is dilated (4.2cm). Aortic arc h is not well visualized. IVC is normal in size and collapses >50% with inspiration. Please see remainder of study for further details. Wall motion Left Ventricle The left ventricle is normal size. The left ventricular systolic function is normal. The left ventric ular ejection fraction is within the normal range. There is normal left ventricular wall thickness. T here is normal LV segmental wall motion. The left ventricular diastolic function is normal. There is no ventricular septal defect visualized. LVEF is 55%. Right Ventricle The right ventricle is normal size. The right ventricular systolic function is normal. Atria Left atrium is mildly dilated. Right atrium is mildly dilated. The interatrial septum is intact with no evidence for an atrial septal defect. Aortic Valve The aortic valve is normal in structure. Aortic valve is trileaflet. There is no aortic valvular sten osis. No aortic regurgitation is present. Mitral Valve Mild mitral annular calcification. No evidence of mitral valve stenosis. Mild mitral regurgitation. Tricuspid Valve The tricuspid valve is normal in structure. There is no tricuspid valve stenosis. Trace tricuspid reg urgitation. Pulmonic Valve Pulmonic valve is not well visualized. There is no pulmonic valvular stenosis. There is no pulmonic v alvular regurgitation. Great Vessels The aortic root is normal in size. The ascending aorta is dilated (4.2cm). Aortic arch is not well vi sualized. IVC is normal in size and collapses >50% with inspiration. Pericardium There is no pericardial effusion. 2D Dimensions IVSD d PLAX 1.13 cm M: 0.6-1.2 LV Vol A2C d MOD 125.0 mL LVPW d PLAX 1.18 cm M: 0.6 - 1.2 LV Vol A4C d MOD 152.4 mL LVID d PLAX 5.74 cm M: 4.2 - 5.8 LA vol/ BSA A2C s A-L 41.3 mL/m2 LVDs 3.95 cm M: 2.5 - 4.0 LA vol/ BSA A4C s A-L 41.9 mL/m2 Ao Root d 3.64 cm M: 3.1 - 3.7 LA Vol/ BSA Biplane s A-L 43.7 mL/m2 RA Area A4C 25.71 cm2 LA Area A4C s MOD 31.31 cm2 RA Vol/ BSA A4C s A-L 34.6 mL/m2 LA Area A2C s MOD 29.60 cm2 Ao Asc Diam d 4.23 cm M: 2.6 - 3.4 LV EF A4C MOD 54.2 % LV EF Teichholz 57.9 % LV EF A2C MOD 53.8 % LVEF (Case's) 52.58 % M: 52 - 72 LV EF Biplane MOD 52.6 % LV Volume 95.62 mL M: 62 - 150 SV 73.97 mL LV Volume Index 34.39 mL/m2 M: 34 - 74 SV Index 26.57 mL/m2 LV Vol Biplane MOD 140.7 mL FS 30.95 % M-Mode TAPSE 1.97 cm (M/F) >1.7 LV Diastology MV E' medial 0.095 (>0.07 m/s) MV E Vmax 1.04 (0.4-1.3 m/s) LV E/e MED 11.00 (<14) MV E' lateral 0.166 (>0.1 m/s) LV E/e LAT 6.25 (<14) MV E/E' medial 11.02 MV E/E' lateral 6.26 Aortic Valve LVOT Area 3.45 cm2 AoV Area Vmax 2.73 cm2 LVOT Vmax 0.89 m/s AoV Area/ BSA (Vmax) 0.98 cm2/m2 LVOT Mean Saeid. 0.57 m/s JACKY Mean Saeid. 2.31 cm2 LVOT Peak Grad 3.2 mmHg JACKY Mean Saeid. Index 0.83 cm2/m2 LVOT Mean Grad 1.6 mmHg LVOT VTI 0.155 m LVOT Diam s 2.05 cm AoV Vmax 1.13 m/s Velocity Ratio 0.78 AoV Mean Saeid. 0.86 m/s AoV Peak Grad 5.1 mmHg LVOT SV 53.67 mL AoV Mean Grad 3.2 mmHg AoV VTI 0.221 m AoV Area VTI 2.42 cm2 AoV Area/ BSA (VTI) 0.87 cm/m2 Mitral Valve MV DT 182 (160-240 msec) MR Vmax 4.67 m/s MV PHT 53 msec MR VTI 1.449 m MV Area PHT 4.16 cm2 MR Peak Grad 87.2 mmHg MV VTI 0.201 m MR Mean Grad 70.3 mmHg MV VTI Annulus 0.204 m MR PISA Radius 0.47 cm MV Area VTI 2.71 (4.0-6.0 cm2) MR EROA 0.10 cm2 MR Aliasing Velocity 0.33 m/s MR PISA 1.36 cm2 Pulmonary Valve PV Vmax 0.86 (0.5-1.5 m/s) RVOT Peak Gr. 1.96 mmHg PV Peak Grad 3.0 mmHg RVOT Mean Gr. 1.00 mmHg PV Mean Grad 1.6 mmHg RVOT VTI 0.134 m PV VTI 0.167 m RVOT Vmax 0.70 m/s Tricuspid Valve TR Peak Grad 22.7 mmHg TR Vmax 2.39 m/s RA Pressure 3.00 mmHg RVSP (TR) 25.8 mmHg
[2020-07-13 08:22] LABS: Hemoglobin A1C 6.7 % (<5.7)
[2020-07-13] MEDS: Protein Nutritional Supplement 16 GM 1 OUNCE PACKET PO ×2 (09:05→20:30)
[2020-07-13] MEDS: Metoprolol 50 MG TAB 200 MG PO ×2 (09:05→20:31)
[2020-07-13] MEDS: Magnesium Oxide 400 MG TAB PO ×2 (09:06→20:31)
[2020-07-13] MEDS: dilTIAZem CD 120 MG CAPCR 240 MG PO (09:06)
[2020-07-13] MEDS: Rivaroxaban 15 MG TABLET PO (09:06)
[2020-07-13] MEDS: Multivitamin TAB 1 TAB PO (09:06)
--- NOTE | 2020-07-13 12:00 | PDOC.CMPRO ---
- If Service Date Differs Date of service: 07/13/20 Time of Service: 12:00 Care Management Progress Note S/O: Jossy remains inpatient at this time, CM reviewed his clinical chart and patient was presented at multidisciplinary team meeting. Jossy is now on a Lasix drip, and is being treated for CHF. He will have a podiatry consult and cardiology. He continues to receive IV abx length of treatment to be determined per provider. A:Jossy is a 65 year old male admitted with bacteremia related to cellulites, new diagnosis of CHF and DM. P:Jossy will be discharged when medically ready, CM will assist in establishing new primary care provider. CM will continue to asses for ongoing discharge needs and disposition.
[2020-07-13] MEDS: Insulin Aspart 300 UNITS/3 ML PEN SC ×2 (12:28→21:33)
--- NOTE | 2020-07-13 15:32 | W.PM.PROGNOT ---
Date of Service Date of service: 07/13/20 Time of Service: 15:32 Assessment and Plan Assessment and plan (1) Cellulitis: Status: Acute Assessment and plan: With Group B strep bacteremia, RLE the likely culprit. Repeat blood cultures are negative at 48 hours. No evidence of endocarditis on echo. Improving. Continue wound care and high dose ceftriaxone. Will place midline with expectation of 2 weeks of IV therapy. (2) Bacteremia: Status: Acute Assessment and plan: As above. (3) Open wound of lower leg: Status: Acute Assessment and plan: Continue wound care. (4) Acute on chronic diastolic CHF (congestive heart failure), NYHA class 1: Status: Acute Assessment and plan: Improving with lasix gtt - and Cr is better today. Continue lasix gtt. Would benefit from a sleep study as also has evidence of mild pulmonary hypertension. (5) Acute kidney injury: Status: Acute Assessment and plan: Cr better. Continue lasix gtt. US renal negative. Figueroa catheter offered - the patient states he would rather go without it. (6) Atrial fibrillation: Status: Chronic Assessment and plan: Rate is controlled - no change in tx. Would continue to monitor on tele to ensure the rate does not become elevated and contributes to CHF. (7) HTN (hypertension): Status: Chronic Assessment and plan: Continue to hold losartan (8) Pulmonary hypertension: Status: None Assessment and plan: Continue lasix gtt. needs a sleep study. (9) PAD (peripheral artery disease): Status: Acute Assessment and plan: Refer to vascular surgery as outpatient. No evidence of AAA. (10) DVT prophylaxis: Status: Acute Assessment and plan: Continue Xarelto. (11) Discharge planning issues: Status: Acute Assessment and plan: Full code. Continues to require hospitalization Subjective Subjective Interval history since last seen: Mr Shanks feels better today. He denies dizziness, chest pain, shortness of breath, nausea. His legs look better to him. He refused a figueroa catheter with the lasix gtt, but nursing reports adequate UOP, and he is - 2.265 L in the last 24 hours. We talked about his new diagnosis of diabetes. He suspected he had it. He is open to being on an oral medication for it when he goes home. Exam Narrative Exam Narrative: General: Very pleasant obese male, A&Ox3, looks better HEENT: EOMI, MMM Heart: RRR today, no m/r/g Lungs: CTAB Abdomen: soft, nontender, nondistended Extremities: BLE edema, R>L, improved; BLEs wrapped. Objective Last Vital Signs Temp 36.1 C L 07/13/20 15:08 Pulse 90 07/13/20 15:08 Resp 18 07/13/20 15:08 BP 124/83 07/13/20 15:08 Pulse Ox 95 07/13/20 15:08 Laboratory Results - last 24 hr 07/13/20 07/13/20 07/13/20 06:50 06:50 06:50 WBC 8.34 RBC 3.87 L Hgb 12.0 L Hct 36.1 L MCV 93.3 MCH 31.0 MCHC 33.2 RDW 14.2 H Plt Count 294 MPV 10.7 Immature Gran % 0.6 Neutrophils % 71.0 Lymphocytes % 10.2 Monocytes % 14.7 Eosinophils % 2.9 Basophils % 0.6 Nucleated RBC % 0 Absolute Neutrophils 5.92 Absolute Lymphocytes 0.85 L Absolute Monocytes 1.23 H Absolute Eosinophils 0.24 Absolute Basophils 0.05 Sodium 132 L Potassium 4.2 Chloride 96 L Carbon Dioxide 27.2 Anion Gap 8.8 BUN 59 H Creatinine 2.39 H D Estimated GFR/1.73 m2 27.35 Glucose 153 H Hemoglobin A1c 6.7 H Calcium 9.1 Magnesium 2.4 C-Reactive Protein 9.00 H Objective Narrative Objective Narrative: Echo: Left Ventricle : The left ventricle is normal size. The left ventricular systolic function is normal. The left ventricular ejection fraction is within the normal range. There is normal left ventricular wall thickness. There is normal LV segmental wall motion. The left ventricular diastolic function is normal. LVEF is 55%. Right Ventricle : The right ventricle is normal size. The right ventricular systolic function is normal. Atria : Left atrium is mildly dilated. Right atrium is mildly dilated. Mitral Valve : Mild mitral annular calcification. Mild mitral regurgitation. No evidence of mitral valve stenosis. Great Vessels : The aortic root is normal in size. The ascending aorta is dilated (4.2cm). Aortic arch is not well visualized. IVC is normal in size and collapses >50% with inspiration. Please see remainder of study for further details.
[2020-07-13] MEDS: cefTRIAXone 2 GM/50 ML BAG IVPB (17:26)
[2020-07-13] MEDS: Normal Saline Flush 10 ML SYR 20 ML IVP (20:31)
[2020-07-14 03:32] VITALS: BP 139/18; PULSE 83; RESP 18; TEMP 36.6; O2SAT 97
[2020-07-14 06:57] LABS: Abs Immature Grans 0.05 10^3/uL (0.0-0.06); Absolute Basophil Count 0.04 10^3/uL (0.0-0.2); Absolute Eosinophil Count 0.33 10^3/uL (0.0-0.7); Absolute Lymphocyte Count 0.86 10^3/uL (1.2-3.4); Absolute Monocyte Count 1.09 10^3/uL (0.1-0.8); Absolute Neutrophil Count 6.54 10^3/uL (1.2-6.7); Basophils % 0.4; Eosinophils % 3.7; HGB 10.9 g/dL (13.5-17.5); Immature Grans % 0.6; Lymphocytes % 9.7; MCH 31.3 pg (27.0-33.0); MCV 94.8 fL (80-95); MPV 10.8 fL (8.0-11.0); Monocytes % 12.2; Neutrophils % 73.4; Nucleated RBC 0 %; Platelet Count 335 10^3/uL (130-400); RBC 3.48 10^6/uL (4.36-5.78); RDW-SD 48.2 fL; WBC 8.91 10^3/uL (4.4-10.8)
[2020-07-14 07:11] LABS: Anion Gap 6.9 mmol/L (3-11); BUN 67 mg/dL (7-18); C-Reactive Protein 6.31 mg/dL (0.0-0.3); CO2 28.1 mmol/L (21.0-32.0); CREATININE 2.23 mg/dL (0.70-1.30); Calcium 8.9 mg/dL (8.5-10.1); Chloride 98 mmol/L (98-107); Estimated GFR 29.63 (mL/min/1.73m2); Glucose 138 mg/dL (74-106); Magnesium 2.3 mg/dL (1.8-2.4); Potassium 3.8 mmol/L (3.5-5.1); Sodium 133 mmol/L (136-145)
[2020-07-14 07:56] VITALS: BP 116/68; PULSE 84; RESP 19; TEMP 36.1; O2SAT 96
[2020-07-14] MEDS: Rivaroxaban 15 MG TABLET PO (08:19)
[2020-07-14] MEDS: dilTIAZem CD 120 MG CAPCR 240 MG PO (08:19)
[2020-07-14] MEDS: Protein Nutritional Supplement 16 GM 1 OUNCE PACKET PO ×2 (08:19→19:53)
[2020-07-14] MEDS: Magnesium Oxide 400 MG TAB PO ×2 (08:20→19:53)
[2020-07-14] MEDS: Multivitamin TAB 1 TAB PO (08:20)
[2020-07-14] MEDS: Metoprolol 50 MG TAB 200 MG PO ×2 (08:20→19:53)
[2020-07-14] MEDS: Normal Saline Flush 10 ML SYR 20 ML IVP ×2 (08:22→19:53)
--- NOTE | 2020-07-14 10:34 | CMPROGNOTE_ITS ---
- If Service Date Differs Date of service: 07/14/20 Time of Service: 10:35 Care Management Progress Note S/O: CM met with Jossy (Anna) at the bedside he is sitting up in the chair and engaged during assessment. Anna wants to learn more about DM management, he is interested in diet control and counting carbohydrates. CM contacted RD and requested education r/t DM education. Anna would like to receives his abx at home if insurance will cover the services with home health. If he is unable to have abx at home he would like to come to the infusion room daily. CM faxed orders to [facility] with insurance information awaiting coverage details. Anna will need a new primary care and is interested in [facility] CM will send a new patient referral. He is completing his advance directives and CM will review for questions prior to signing them A:Jossy is a 65 year old male admitted with bacteremia related to cellulites, new diagnosis of CHF and DM. P:Jossy will be discharged when medically ready, anticipate home health for nursing and IV abx vs infusion room and outpatient wound care. CM will assist in establishing new primary care provider. CM will continue to asses for ongoing discharge needs and disposition. Family to transport home at time of discharge.
[2020-07-14 11:05] VITALS: BP 133/82; PULSE 84; RESP 19; TEMP 36.7; O2SAT 99
--- NOTE | 2020-07-14 11:26 | W.PM.PROGNOT ---
Date of Service Date of service: 07/14/20 Time of Service: : Assessment and Plan Assessment and plan (1) Cellulitis: Status: Acute Assessment and plan: With Group B strep bacteremia, RLE the likely culprit. Repeat blood cultures from 07/11 are negative to date. No evidence of endocarditis on echo. Improving. Continue wound care and high dose ceftriaxone. Will place midline with expectation of 2 weeks of IV therapy, through 07/24. (2) Bacteremia: Status: Acute Assessment and plan: As above. (3) Open wound of lower leg: Status: Acute Assessment and plan: Continue wound care. (4) Acute on chronic diastolic CHF (congestive heart failure), NYHA class 1: Status: Acute Assessment and plan: Improving with lasix gtt - and Cr is better today. Continue lasix gtt. Would benefit from a sleep study as also has evidence of mild pulmonary hypertension. (5) Acute kidney injury: Status: Acute Assessment and plan: Cr better. Continue lasix gtt. US renal negative. Godinez catheter offered - the patient states he would rather go without it. (6) Atrial fibrillation: Status: Chronic Assessment and plan: Rate is controlled - no change in tx. Would continue to monitor on tele to ensure the rate does not become elevated and contributes to CHF. (7) HTN (hypertension): Status: Chronic Assessment and plan: Continue to hold losartan (8) Pulmonary hypertension: Status: None Assessment and plan: Continue lasix gtt. needs a sleep study. (9) PAD (peripheral artery disease): Status: Acute Assessment and plan: Refer to vascular surgery as outpatient. No evidence of AAA. (10) DVT prophylaxis: Status: Acute Assessment and plan: Continue Xarelto. (11) Discharge planning issues: Status: Acute Assessment and plan: Full code. Continues to require hospitalization. anticipate discharge, patient hoping sunday/sunday, will need IV antibiotic through 07/24. home health vs outpatient infusion. case management following. case discussed with DR Hong who is in agreement. Subjective Subjective Patient reports: no new complaints, feels better, tolerating liquids well, tolerating a regular diet, bowel movement and afebrile Interval history since last seen: reports decreased edema. Exam Const General: cooperative, comfortable and no acute distress Nutritional Appearance: obese Orientation: alert, awake and oriented x3 HENMT Head: normal to inspection, normocephalic and atraumatic Mouth: oral mucosae normal Resp Effort & Inspection: normal respiratory effort Auscultation: clear to auscultation bilaterally, diminished lung sounds bilaterally in the lower lung river[place], no rhonchi and no wheezes Cardio Rate: regular rate Rhythm: regular rhythm Heart Sounds: no murmurs GI Inspection: normal to inspection Palpation: soft Auscultation: normal bowel sounds Skin General skin exam: other (chronic discoloration to bilateral lower consistent venous statis) Lesions: lesion noted (left lower) Extrem General: edema (extensive right much greater than left) Objective Last Vital Signs Temp 36.7 C 07/14/20 11:05 Pulse 84 07/14/20 11:05 Resp 19 07/14/20 11:05 BP 133/82 07/14/20 11:05 Pulse Ox 99 07/14/20 11:05 Laboratory Results - last 24 hr 07/14/20 07/14/20 06:22 06:22 WBC 8.91 RBC 3.48 L Hgb 10.9 L Hct 33.0 L MCV 94.8 MCH 31.3 MCHC 33.0 RDW 14.0 Plt Count 335 MPV 10.8 Immature Gran % 0.6 Neutrophils % 73.4 Lymphocytes % 9.7 Monocytes % 12.2 Eosinophils % 3.7 Basophils % 0.4 Nucleated RBC % 0 Absolute Neutrophils 6.54 Absolute Lymphocytes 0.86 L Absolute Monocytes 1.09 H Absolute Eosinophils 0.33 Absolute Basophils 0.04 Sodium 133 L Potassium 3.8 Chloride 98 Carbon Dioxide 28.1 Anion Gap 6.9 BUN 67 H Creatinine 2.23 H Estimated GFR/1.73 m2 29.63 Glucose 138 H Calcium 8.9 Magnesium 2.3 C-Reactive Protein 6.31 H
[2020-07-14] MEDS: Insulin Aspart 300 UNITS/3 ML PEN SC ×2 (12:07→21:49)
[2020-07-14] MEDS: Lachydrin 12% LOTION 225 GM BTL TP (15:27)
[2020-07-14 15:46] VITALS: BP 125/72; PULSE 113; RESP 20; TEMP 36.6; O2SAT 100
[2020-07-14] MEDS: cefTRIAXone 2 GM/50 ML BAG IVPB (15:48)
--- NOTE | 2020-07-14 15:53 | CHAPLAIN ---
I visited with Jossy this morning when he was in Room 209. He was sitting up in his chair and told me about the possibility of being discharged and having his infusion completed at home with the support of Home Health. Jossy said his significant other of more than 25 years nearly 3 years go. Since then Jossy has moved into a smaller house next door to where he lived with his SO. His son has been in to visit and Jossy showed me photos of his three granddaughters.
[2020-07-14 19:34] VITALS: BP 149/78; PULSE 97; RESP 20; TEMP 36.5; O2SAT 98
[2020-07-14 23:46] VITALS: BP 132/83; PULSE 92; RESP 19; TEMP 36.7; O2SAT 97
[2020-07-15 07:47] VITALS: BP 110/67; PULSE 100; RESP 18; TEMP 36.7; O2SAT 98
[2020-07-15 07:52] LABS: Abs Immature Grans 0.05 10^3/uL (0.0-0.06); Absolute Basophil Count 0.04 10^3/uL (0.0-0.2); Absolute Eosinophil Count 0.32 10^3/uL (0.0-0.7); Absolute Monocyte Count 0.99 10^3/uL (0.1-0.8); Absolute Neutrophil Count 6.54 10^3/uL (1.2-6.7); Basophils % 0.5; Eosinophils % 3.7; HCT 33.8 % (40.0-50.0); HGB 11.4 g/dL (13.5-17.5); Immature Grans % 0.6; Lymphocytes % 9.2; MCH 32.2 pg (27.0-33.0); MCHC 33.7 % (32.0-36.0); MCV 95.5 fL (80-95); MPV 10.8 fL (8.0-11.0); Monocytes % 11.3; Neutrophils % 74.7; Nucleated RBC 0 %; Platelet Count 370 10^3/uL (130-400); RBC 3.54 10^6/uL (4.36-5.78); RDW 13.9 % (11.8-14.1); RDW-SD 49.1 fL; WBC 8.74 10^3/uL (4.4-10.8)
[2020-07-15 07:59] LABS: Anion Gap 7.1 mmol/L (3-11); BUN 65 mg/dL (7-18); CO2 28.9 mmol/L (21.0-32.0); CREATININE 1.97 mg/dL (0.70-1.30); Chloride 98 mmol/L (98-107); Estimated GFR 34.19 (mL/min/1.73m2); Glucose 142 mg/dL (74-106); Potassium 3.9 mmol/L (3.5-5.1); Sodium 134 mmol/L (136-145)
[2020-07-15] MEDS: Magnesium Oxide 400 MG TAB PO ×2 (08:00→19:49)
[2020-07-15] MEDS: Rivaroxaban 15 MG TABLET PO (08:00)
[2020-07-15] MEDS: Normal Saline Flush 10 ML SYR 20 ML IVP ×2 (08:00→19:52)
[2020-07-15] MEDS: Metoprolol 50 MG TAB 200 MG PO ×2 (08:00→19:49)
[2020-07-15] MEDS: Multivitamin TAB 1 TAB PO (08:00)
[2020-07-15] MEDS: dilTIAZem CD 120 MG CAPCR 240 MG PO (08:01)
[2020-07-15] MEDS: Insulin Aspart 300 UNITS/3 ML PEN SC ×3 (08:02→21:30)
[2020-07-15] MEDS: Protein Nutritional Supplement 16 GM 1 OUNCE PACKET PO ×2 (08:02→19:51)
[2020-07-15 11:26] VITALS: BP 164/97; PULSE 89; RESP 18; TEMP 36.7; O2SAT 97
--- NOTE | 2020-07-15 14:53 | CMPROGNOTE_ITS ---
- If Service Date Differs Date of service: 07/15/20 Time of Service: 14:53 Care Management Progress Note S/O: Jossy remains acute, his copay would be to high for home antibiotics, he will need to do outpatient infusion. Home health could do the dressing changes he will also be referred to new pcp at [facility]. A:Jossy is a 65 year old male admitted with bacteremia related to cellulites, new diagnosis of CHF and DM. P:Jossy will be discharged when medically ready, anticipate home health for nursing and wound care. IV abx in the infusion room daily. CM will assist in establishing new primary care provider at [facility]. CM will continue to asses for ongoing discharge needs and disposition. Family to transport home at time of discharge.
[2020-07-15 15:55] VITALS: BP 151/93; PULSE 83; RESP 19; TEMP 36.6; O2SAT 97
[2020-07-15] MEDS: cefTRIAXone 2 GM/50 ML BAG IVPB (16:32)
[2020-07-15] MEDS: Normal Saline Flush 10 ML SYR IVP (16:33)
--- NOTE | 2020-07-15 16:37 | W.PM.PROGNOT ---
Date of Service Date of service: 07/15/20 Time of Service: 16:37 Assessment and Plan Assessment and plan (1) Cellulitis: Status: Acute Assessment and plan: With Group B strep bacteremia, RLE the likely culprit. Repeat blood cultures from 07/11 are negative to date. No evidence of endocarditis on echo. Improving. Continue wound care and high dose ceftriaxone. Will place midline with expectation of 2 weeks of IV therapy, through 07/24. (2) Bacteremia: Status: Acute Assessment and plan: As above. (3) Open wound of lower leg: Status: Acute Assessment and plan: Continue wound care. (4) Acute on chronic diastolic CHF (congestive heart failure), NYHA class 1: Status: Acute Assessment and plan: Improving with lasix gtt - and Cr is better today. Continue lasix gtt. Would benefit from a sleep study as also has evidence of mild pulmonary hypertension. (5) Acute kidney injury: Status: Acute Assessment and plan: Cr better. Continue lasix gtt. US renal negative. Godinez catheter offered - the patient states he would rather go without it. (6) Atrial fibrillation: Status: Chronic Assessment and plan: Rate is controlled - no change in tx. Would continue to monitor on tele to ensure the rate does not become elevated and contributes to CHF. (7) HTN (hypertension): Status: Chronic Assessment and plan: Continue to hold losartan (8) Pulmonary hypertension: Status: None Assessment and plan: Continue lasix gtt. needs a sleep study. (9) PAD (peripheral artery disease): Status: Acute Assessment and plan: Refer to vascular surgery as outpatient. No evidence of AAA. (10) DVT prophylaxis: Status: Acute Assessment and plan: Continue Xarelto. (11) Discharge planning issues: Status: Acute Assessment and plan: Full code. Continues to require hospitalization. anticipate discharge, patient hoping sunday/sunday, will need IV antibiotic through 07/24. home health vs outpatient infusion. case management following. case discussed with DR Hong who is in agreement. Subjective Subjective Patient reports: no new complaints, feels better, tolerating liquids well and tolerating a regular diet Exam Const General: cooperative, comfortable and no acute distress Nutritional Appearance: obese Orientation: alert, awake and oriented x3 HENMT Head: normal to inspection, normocephalic and atraumatic Mouth: oral mucosae normal Resp Effort & Inspection: normal respiratory effort Auscultation: clear to auscultation bilaterally, diminished lung sounds bilaterally in the lower lung rivera, no rhonchi and no wheezes Cardio Rate: regular rate Rhythm: regular rhythm Heart Sounds: no murmurs GI Inspection: normal to inspection Palpation: soft Auscultation: normal bowel sounds Skin General skin exam: other (chronic discoloration to bilateral lower consistent venous statis) Lesions: lesion noted (left lower) Extrem General: edema (extensive right much greater than left) Objective Last Vital Signs Temp 36.6 C 07/15/20 15:55 Pulse 83 07/15/20 15:55 Resp 19 07/15/20 15:55 BP 151/93 H 07/15/20 15:55 Pulse Ox 97 07/15/20 15:55 Laboratory Results - last 24 hr 07/15/20 07/15/20 07:05 07:05 WBC 8.74 RBC 3.54 L Hgb 11.4 L Hct 33.8 L MCV 95.5 H MCH 32.2 MCHC 33.7 RDW 13.9 Plt Count 370 MPV 10.8 Immature Gran % 0.6 Neutrophils % 74.7 Lymphocytes % 9.2 Monocytes % 11.3 Eosinophils % 3.7 Basophils % 0.5 Nucleated RBC % 0 Absolute Neutrophils 6.54 Absolute Lymphocytes 0.80 L Absolute Monocytes 0.99 H Absolute Eosinophils 0.32 Absolute Basophils 0.04 Sodium 134 L Potassium 3.9 Chloride 98 Carbon Dioxide 28.9 Anion Gap 7.1 BUN 65 H Creatinine 1.97 H Estimated GFR/1.73 m2 34.19 Glucose 142 H Calcium 9.0
[2020-07-15 19:05] VITALS: BP 147/84; PULSE 97; RESP 18; TEMP 35.9; O2SAT 97
[2020-07-15] MEDS: Acetaminophen 325 MG TAB 650 MG PO (19:50)
[2020-07-15 23:19] VITALS: BP 120/72; PULSE 91; RESP 21; TEMP 36.8; O2SAT 98
[2020-07-16 03:15] VITALS: BP 116/61; PULSE 81; RESP 19; TEMP 36.6; O2SAT 98
[2020-07-16 06:53] LABS: HCT 34.9 % (40.0-50.0); HGB 11.6 g/dL (13.5-17.5); MCHC 33.2 % (32.0-36.0); MCV 96.4 fL (80-95); MPV 10.8 fL (8.0-11.0); Platelet Count 395 10^3/uL (130-400); RBC 3.62 10^6/uL (4.36-5.78); RDW 13.8 % (11.8-14.1); WBC 10.41 10^3/uL (4.4-10.8)
[2020-07-16 07:04] LABS: Anion Gap 5.8 mmol/L (3-11); BUN 63 mg/dL (7-18); CO2 30.2 mmol/L (21.0-32.0); CREATININE 1.98 mg/dL (0.70-1.30); Calcium 9.4 mg/dL (8.5-10.1); Chloride 100 mmol/L (98-107); Estimated GFR 33.99 (mL/min/1.73m2); Glucose 141 mg/dL (74-106); Magnesium 2.1 mg/dL (1.8-2.4); Potassium 4.7 mmol/L (3.5-5.1); Sodium 136 mmol/L (136-145)
[2020-07-16 07:51] VITALS: BP 138/82; PULSE 95; RESP 18; TEMP 35.9; O2SAT 98
[2020-07-16] MEDS: Normal Saline Flush 10 ML SYR 20 ML IVP ×2 (08:35→19:44)
[2020-07-16] MEDS: Protein Nutritional Supplement 16 GM 1 OUNCE PACKET PO ×2 (08:35→19:43)
[2020-07-16] MEDS: Magnesium Oxide 400 MG TAB PO ×2 (08:36→19:43)
[2020-07-16] MEDS: Rivaroxaban 15 MG TABLET PO (08:36)
[2020-07-16] MEDS: Multivitamin TAB 1 TAB PO (08:36)
[2020-07-16] MEDS: dilTIAZem CD 120 MG CAPCR 240 MG PO (08:36)
[2020-07-16] MEDS: Metoprolol 50 MG TAB 200 MG PO ×2 (08:36→19:43)
[2020-07-16 11:19] VITALS: BP 131/83; PULSE 88; RESP 18; TEMP 37; O2SAT 99
[2020-07-16] MEDS: Insulin Aspart 300 UNITS/3 ML PEN SC ×3 (12:00→21:21)
--- NOTE | 2020-07-16 13:29 | W.PM.PROGNOT ---
Date of Service Date of service: 07/16/20 Time of Service: 13:29 Assessment and Plan Assessment and plan (1) Cellulitis: Status: Acute Assessment and plan: With Group B strep bacteremia, RLE the likely culprit. Repeat blood cultures from 07/11 are negative to date. No evidence of endocarditis on echo. Improving. Continue wound care and high dose ceftriaxone. Will place midline with expectation of 2 weeks of IV therapy, through 07/24. (2) Bacteremia: Status: Acute Assessment and plan: As above. (3) Open wound of lower leg: Status: Acute Assessment and plan: Continue wound care. (4) Acute on chronic diastolic CHF (congestive heart failure), NYHA class 1: Status: Acute Assessment and plan: will transition lasix gtt to oral, continue daily weights, I&O and recheck kidney function in am Would benefit from a sleep study as also has evidence of mild pulmonary hypertension. (5) Acute kidney injury: Status: Acute Assessment and plan: Cr stable and below baseline, continue to avoid nephrotoxic drugs and monitor. US renal negative. (6) Atrial fibrillation: Status: Chronic Assessment and plan: Rate is controlled - no change in tx. (7) HTN (hypertension): Status: Chronic Assessment and plan: Continue to hold losartan. blood pressures mostly well controlled. (8) Pulmonary hypertension: Status: None Assessment and plan: Continue diuretics needs a sleep study. (9) PAD (peripheral artery disease): Status: Acute Assessment and plan: Refer to vascular surgery as outpatient. No evidence of AAA. (10) DVT prophylaxis: Status: Acute Assessment and plan: Continue Xarelto. (11) Discharge planning issues: Status: Acute Assessment and plan: Full code. Continues to require hospitalization. anticipate discharge, patient hoping sunday/sunday, will need IV antibiotic through 07/24. home health vs outpatient infusion. case management following. case discussed with DR Hong who is in agreement. Subjective Subjective Patient reports: no new complaints, feels better, tolerating liquids well, tolerating a regular diet, voiding w/o difficulty, bowel movement and afebrile Exam Const General: cooperative, comfortable and no acute distress Nutritional Appearance: obese Orientation: alert, awake and oriented x3 HENMT Head: normal to inspection, normocephalic and atraumatic Mouth: oral mucosae normal Resp Effort & Inspection: normal respiratory effort Auscultation: clear to auscultation bilaterally, diminished lung sounds bilaterally in the lower lung rivera, no rhonchi and no wheezes Cardio Rate: regular rate Rhythm: regular rhythm Heart Sounds: no murmurs GI Inspection: normal to inspection Palpation: soft Auscultation: normal bowel sounds Skin General skin exam: other (chronic discoloration to bilateral lower consistent venous statis) Lesions: lesion noted (left lower) Extrem General: edema (extensive right much greater than left) Objective Last Vital Signs Temp 37.0 C 07/16/20 11:19 Pulse 88 07/16/20 11:19 Resp 18 07/16/20 11:19 BP 131/83 07/16/20 11:19 Pulse Ox 99 07/16/20 11:19 Laboratory Results - last 24 hr 07/16/20 07/16/20 06:15 06:15 WBC 10.41 RBC 3.62 L Hgb 11.6 L Hct 34.9 L MCV 96.4 H MCH 32.0 MCHC 33.2 RDW 13.8 Plt Count 395 MPV 10.8 Sodium 136 Potassium 4.7 D Chloride 100 Carbon Dioxide 30.2 Anion Gap 5.8 BUN 63 H Creatinine 1.98 H Estimated GFR/1.73 m2 33.99 Glucose 141 H Calcium 9.4 Magnesium 2.1
[2020-07-16 15:57] VITALS: BP 129/76; PULSE 72; RESP 18; TEMP 36.9; O2SAT 98
[2020-07-16] MEDS: Furosemide 40 MG TAB PO (15:58)
[2020-07-16] MEDS: cefTRIAXone 2 GM/50 ML BAG IVPB (15:58)
[2020-07-16 19:15] VITALS: BP 132/78; PULSE 95; RESP 18; TEMP 37.7; O2SAT 95
[2020-07-16 23:55] VITALS: BP 120/75; PULSE 84; RESP 20; TEMP 36.7; O2SAT 97
[2020-07-17 03:35] VITALS: BP 147/86; PULSE 90; RESP 18; TEMP 36.5; O2SAT 98
[2020-07-17 07:34] LABS: Anion Gap 4.7 mmol/L (3-11); BUN 56 mg/dL (7-18); CO2 30.3 mmol/L (21.0-32.0); CREATININE 1.72 mg/dL (0.70-1.30); Calcium 9.2 mg/dL (8.5-10.1); Chloride 101 mmol/L (98-107); Estimated GFR 39.98 (mL/min/1.73m2); Glucose 138 mg/dL (74-106); Potassium 4.2 mmol/L (3.5-5.1); Sodium 136 mmol/L (136-145)
[2020-07-17 07:42] VITALS: BP 124/86; PULSE 96; RESP 18; TEMP 36.5; O2SAT 98
[2020-07-17] MEDS: dilTIAZem CD 120 MG CAPCR 240 MG PO (07:53)
[2020-07-17] MEDS: Multivitamin TAB 1 TAB PO (07:53)
[2020-07-17] MEDS: Rivaroxaban 15 MG TABLET PO (07:53)
[2020-07-17] MEDS: Furosemide 40 MG TAB PO (07:53)
[2020-07-17] MEDS: Magnesium Oxide 400 MG TAB PO (07:53)
[2020-07-17] MEDS: Metoprolol 50 MG TAB 200 MG PO (07:53)
[2020-07-17] MEDS: Normal Saline Flush 10 ML SYR 20 ML IVP (07:54)
[2020-07-17] MEDS: Protein Nutritional Supplement 16 GM 1 OUNCE PACKET PO (07:54)
--- NOTE | 2020-07-17 08:45 | DSE_ITS ---
Date of service: 07/17/20 Time of Service: 08:46 DS: Diagnosis Discharge Diagnosis (1) Cellulitis: Status: Acute (2) Bacteremia: Status: Acute (3) Open wound of lower leg: Status: Acute (4) Acute on chronic diastolic CHF (congestive heart failure), NYHA class 1: Status: Acute (5) Acute kidney injury: Status: Acute (6) Atrial fibrillation: Status: Chronic (7) HTN (hypertension): Status: Chronic (8) Pulmonary hypertension: Status: None (9) PAD (peripheral artery disease): Status: Acute Discharge Plan Disposition Patient Disposition: HOME W/HOME HEALTH SERVICE Condition: Stable Discharge Details Reason For Visit: CELLULITIS BLES, GPC BACTEREMIA Admit Date/Time: 07/11/20 09:35 Admit Provider: Georgie Hong Attending Provider: Georgie Hong [facility] Course: Jossy Shanks is a very pleasant 65-year-old man with a past medical history significant for congestive heart failure, atrial fibrillation, hypertension, COPD, with a [id number] smoking history, he quit in 2009, pulmonary HTN, as well as recurrent cellulitis of the lower extremities. He initially presented to the emergency department on 07/09/2020 with a bleeding wound to his left lower extremity. He was thought to have cellulitis and CHF exacerbation. He was given ceftriaxone and IV Lasix and discharged home with an increased Lasix dose and oral Keflex. At the time of his visit, he did not have leukocytosis, and he was afebrile. He was called back by the emergency department last night because his blood cultures were noted to be positive, growing group B strep, repeat cultures from 07/11/2020 were with no growth, He should complete 2 weeks of IV antibiotics. He was admitted to med/surg. ultrasound negative for DVT. He was placed on IV lasix drip and IV ceftriaxone 2 gm. He should continue ceftriaxone 2 gm daily through 07/24/2020, 2 weeks from negative cultures, he will come to outpatient clinic arranged through case management. His echo showed no valvular vegetations. EF 55%. atrial fibrillation well controlled on his home diltiazem, he is fully anticoagulated on xarelto. He diuresed well, kidney function improved to below his baseline. His IV lasix was discontinued and he was transitioned to oral at increased home dose of 40 mg po BID.. He should continue to monitor weights 3 times weekly and report 5 pound gain to primary care provider. labs should be rechecked on Sunday, July 19, 2020. He remained afebrile with normal white count. He received diabetes education. His AIC found to be 6.7. blood sugars well managed in hospital. He should continue to monitor at home and discussed further outpatient diabetes management with outpatient team. suggest outpatient sleep study per outpatient team referral placed for vascular for PAD. wound care daily: cleanse BLEs with Debrisoft sponge and anasept spray. Pat dry. Apply ammonium lactate. Wrap with ACEWRAPS to just below the knees. Change daily or PRN. Left medial ankle - After cleaning, apply ABD pad. Cover with Kerlix. Secure with ACEWRAP. Change daily or PRN if saturated. discharge plan discussed with Dr Herrera who is in agreement. Home Meds and New Rx's Prescriptions: New ceftriaxone in dextrose,iso-os 2 gram/50 mL Piggyback 2 g IVPB Q24H Qty: 0 RF: 0 (DME) blood-glucose meter [Blood Glucose Monitoring] Kit See Rx Instructions .ROUTE .MEDSUPPLY Qty: 1 RF: 0 (DME) lancets-blood glucose strips 30 gauge combo pack See Rx Instructions .ROUTE .MEDSUPPLY Qty: 200 RF: 0 Continued multivitamin [Daily Vitamin] 1 EACH tablet 1 ea PO DAILY RF: 0 ibuprofen [Advil] 200 MG tablet 400 mg PO Q6H PRN RF: 0 diltiazem HCl 240 MG capsule,ext.rel 24h degradable 240 mg PO DAILY Qty: 90 RF: 3 Xarelto 15 MG tablet 15 mg PO DAILY Qty: 90 RF: 3 magnesium oxide 400 MG tablet 400 mg PO BID Qty: 60 RF: 0 metoprolol tartrate 100 MG tablet 200 mg PO BID RF: 0 Changed furosemide [Lasix] 20 mg tablet 40 mg PO BID Qty: 0 RF: 0 Discontinued losartan 50 MG tablet 50 mg PO DAILY Qty: 90 RF: 3 cephalexin 500 mg tablet 500 mg PO BID 7 Days Qty: 14 RF: 0 Discharge Instructions Instructions: Bacteremia (DC), Type 2 Diabetes Management for Adults (DC) Additional Instructions: continue daily wound care as directed. diabetes management as discussed. further medication management per pcp. Outpatient infusion. Stand Alone Forms: Nursing Discharge Form [facility] [place] [facility] - (PAD, wound L ankle) Pepe Bill [ [facility] STAFF PHYSICIAN] - 07/21/20 2:00 pm Activity:: Activity as Tolerated Equipment/Supplies:: Blood Glucose Monitor Diet:: Carb Counting Discharge Orders Discharge Orders: Discharge Order (Routine); Ordered 07/17/20 Ordered By: Alma Bartlett Other Ambulatory Orders: Basic Metabolic Panel (Routine) Timeframe: 20200719 Location: None Selected Ordered By: Alma Bartlett Complete Blood Count w/Diff (Routine) Timeframe: 20200719 Location: None Selected Ordered By: Alma Bartlett DS: Summary Status at Discharge Functional status at discharge: independent ambulation Overall status at discharge: patient is progressing back to baseline Mental Status: mental status grossly normal Speech and Movement: speech and movement normal Mood: congruent mood Affect: normal affect Exam Const General: cooperative, comfortable and no acute distress Nutritional Appearance: obese Orientation: alert, awake and oriented x3 HENMT Head: normal to inspection, normocephalic and atraumatic Mouth: oral mucosae normal Resp Effort & Inspection: normal respiratory effort Auscultation: clear to auscultation bilaterally, diminished lung sounds bilaterally in the lower lung rivera, no rhonchi and no wheezes Cardio Rate: regular rate Rhythm: regular rhythm Heart Sounds: no murmurs GI Inspection: normal to inspection Palpation: soft Auscultation: normal bowel sounds Skin General skin exam: other (chronic discoloration to bilateral lower consistent venous statis) Lesions: lesion noted (left lower) Extrem General: edema (extensive right much greater than left) Psych Mental Status: mental status grossly normal Speech and Movement: speech and movement normal Mood: congruent mood Affect: normal affect DS: Data Vitals/I&O Vitals and I&O: Vital Signs Temperature 36.5 C 07/17/20 07:42 Temperature Source Tympanic 07/17/20 07:42 Pulse 96 H 07/17/20 07:42 Pulse Rhythm Regular 07/17/20 08:18 Respiratory Rate 18 07/17/20 07:42 Respiratory Effort Non-Labored 07/17/20 08:18 Respiratory Depth Normal 07/17/20 08:18 Respiratory Pattern Normal 07/17/20 08:18 Blood Pressure 124/86 07/17/20 07:42 Blood Pressure Position Sitting 07/11/20 07:56 Pulse Oximetry 98 07/17/20 07:42 Oxygen Delivery Method Room Air 07/17/20 07:42 Oxygen Flow Rate 0 07/17/20 07:42 Pain Level 0 07/17/20 07:42 Comment 07/14/20 07:56 Intake & Output 07/16/20 07/16/20 07/17/20 11:59 23:59 11:59 Intake Total 240 / 1079.292 839.292 / 1079.292 Output Total 1200 / 1500 300 / 1500 Balance -960 / -420.708 539.292 / -420.708 Weight 167.1 kg 168.1 kg Intake: IV 49.292 / 49.292 Oral 240 / 1030 790 / 1030 Output: Urine 1200 / 1500 300 / 1500 Other: Urine Color Yellow Pale Yellow Urine Appearance Clear Clear Stool Size Large Voiding Methods Urinal Toilet Data Completed and Pending Labs on day of discharge: Labs from last 24 hours 07/17/20 06:30 Sodium 136 Potassium 4.2 Chloride 101 Carbon Dioxide 30.3 Anion Gap 4.7 BUN 56 H Creatinine 1.72 H Estimated GFR/1.73 m2 39.98 Glucose 138 H Calcium 9.2 PFSH Medical History (Updated 07/17/20 @ 10:10 by Alma Bartlett NP) Anxiety Atrial fibrillation broken rt thumb (10/10/16) Dilated aortic root Diverticulosis Essential hypertension Pulmonary hypertension Vitamin D deficiency Surgical History Colonoscopy - IV Sedation (01/15/15) Dr Templeton Right knee surgery after injury Family History Grandfather Diabetes Grandmother Diabetes Social History Smoking/Tobacco Use Status: Former Tobacco Use Alcohol Intake: current Alcohol Intake frequency: 0-2 drinks per day Alcohol type: beer Drug use: Rarely Substance use type: marijuana Do you feel safe at home: Yes Do you feel safe in your relationship?: Yes
--- NOTE | 2020-07-17 09:56 | PDOC.HHF2F ---
Home Health Certification Home Health Certification: 1. Encounter Date and Reason I certify that AVE KOLB was seen by Alma Bartlett on 07/17/20 and that I had a ltre-np-qcan encounter with this patient that meets the physician face to face encounter requirements. 2. Clinical Findings Supporting Skilled Need and Homebound Status I certify that home health services are medically necessary, include either intermittent shelter and/or physical/speech therapy, and that this patient is homebound in that absences from the home require considerable and taxing effort and are infrequent or of short duration, or are attributable to the need to receive medical care. [X] (a) Attached documentation from encounter provides clinical findings supporting skilled need and homebound status (including what assistance patient requires to leave the home). The encounter with the patient was in whole, or in part, for the following medical condition, which is the primary reason for home health care: CELLULITIS BLES, GPC BACTEREMIA Alf: for medication oversight, new diabetes management and monitoring, wound care. 3. Certification and Authentication I certify that I composed the above information based on my clinical judgment relating to this patient's medical condition and, if applicable, clinical findings communicated to me by the NPP or inpatient physician who performed the Home Health Referral. All further orders will be obtained through (Community Based Physician - PCP)
[2020-07-17] MEDS: Insulin Aspart 300 UNITS/3 ML PEN SC (11:45)
[2020-07-17 12:07] VITALS: BP 155/78; PULSE 93; RESP 16; TEMP 36.5; O2SAT 98
[2020-07-17] MEDS: cefTRIAXone 2 GM/50 ML BAG IVPB (13:03)
--- NOTE | 2020-07-17 13:27 | PDOC.CMDIS ---
- If Service Date Differs Date of service: 07/17/20 Time of Service: 13:27 LACE Index Scoring Tool - Questions: Length of Stay (in days): 4 - 6 Acuity (Admit via E.D.?): Yes E.D. Visits: 2 - Answers: Total Score: 9 Risk of Readmission: Low Risk Care Management Discharge Reason for Hospitalization: Cellulitis BLE's, bacteremia Discharge Plan: Jossy is discharged home with new nursing for wound care. He will follow up with his new PCP, Pepe Bill, as scheduled, and with his discharge plan of care as directed. Jossy will come to the infusion room for daily antibiotics. His first infusion appointment is tomorrow, Saturday, July 18, 2020 at 2:00 pm. His son is driving him home via private vehicle. Patient/Family Education Needs: Discharge instructions, limitations, follow up plan of care, including Ask Me Three and self management. Services Needed at Discharge: Home Health Care Services, Infusion Therapy
== END 2020-07-17 14:06 | disposition home health service (06) | DRG 602 ==
LOC: ER 09:58 → MS 10:41
PROVIDERS: Nurse Practitioner Acute Care; Admitting Provider Internal Medicine; Emergency Provider Registered Nurse Emergency; Visit Provider Internal Medicine
DX: L03.115 Cellulitis of right lower limb (principal); I50.33 Acute on chronic diastolic (congestive) heart failure; N17.9 Acute kidney failure, unspecified; L97.329 Non-pressure chronic ulcer of left ankle with unspecified severity; R78.81 Bacteremia; Z68.43 Body mass index [BMI] 50.0-59.9, adult; I48.91 Unspecified atrial fibrillation; I11.0 Hypertensive heart disease with heart failure; I27.20 Pulmonary hypertension, unspecified; J44.9 Chronic obstructive pulmonary disease, unspecified; Z87.891 Personal history of nicotine dependence; F41.9 Anxiety disorder, unspecified; K57.90 Diverticulosis of intestine, part unspecified, without perforation or abscess without bleeding; E55.9 Vitamin D deficiency, unspecified; I77.819 Aortic ectasia, unspecified site; B95.1 Streptococcus, group B, as the cause of diseases classified elsewhere; E66.9 Obesity, unspecified
CPT/HCPCS: 36410; 36415; 76706; 76770; 80048; 80053; 84145; 85027; 87040; 90686; 93005; 93306; 96361; 96365; 99222; 99232; 99233; 99239; 99285; U0003; 71046; 83036; 83735; 83880; 84439; 84443; 84484; 85025; 86140; 93010; 93970; 99284; J0690; J1940

== ENCOUNTER 2020-07-24 03:17 | Outpatient (RCR) | payer OTHER, BC, SELFPAY ==
[2020-07-18] MEDS: Normal Saline Flush 10 ML SYR IVP (13:55)
[2020-07-18] MEDS: cefTRIAXone 2 GM/50 ML BAG IVPB (13:55)
[2020-07-19] MEDS: cefTRIAXone 2 GM/50 ML BAG IVPB (13:52)
[2020-07-19] MEDS: Normal Saline Flush 10 ML SYR IVP (13:53)
[2020-07-20] MEDS: cefTRIAXone 2 GM/50 ML BAG IVPB (13:51)
[2020-07-20] MEDS: Normal Saline Flush 10 ML SYR IVP (13:51)
[2020-07-20 14:01] LABS: Abs Immature Grans 0.08 10^3/uL (0.0-0.06); Absolute Basophil Count 0.04 10^3/uL (0.0-0.2); Absolute Eosinophil Count 0.32 10^3/uL (0.0-0.7); Absolute Lymphocyte Count 1.37 10^3/uL (1.2-3.4); Absolute Neutrophil Count 7.15 10^3/uL (1.2-6.7); Basophils % 0.4; Eosinophils % 3.1; HCT 35.9 % (40.0-50.0); HGB 11.7 g/dL (13.5-17.5); Immature Grans % 0.8; Lymphocytes % 13.5; MCH 31.3 pg (27.0-33.0); MCHC 32.6 % (32.0-36.0); MPV 10.1 fL (8.0-11.0); Monocytes % 11.8; Neutrophils % 70.4; Nucleated RBC 0 %; Platelet Count 466 10^3/uL (130-400); RBC 3.74 10^6/uL (4.36-5.78); RDW 13.6 % (11.8-14.1); RDW-SD 48.3 fL; WBC 10.16 10^3/uL (4.4-10.8)
[2020-07-20 14:11] LABS: BUN 37 mg/dL (7-18); CREATININE 1.67 mg/dL (0.70-1.30); Calcium 10.1 mg/dL (8.5-10.1); Chloride 99 mmol/L (98-107); Estimated GFR 41.37 (mL/min/1.73m2); Glucose 110 mg/dL (74-106); Sodium 135 mmol/L (136-145)
[2020-07-21] MEDS: cefTRIAXone 2 GM/50 ML BAG IVPB (12:48)
[2020-07-21] MEDS: Normal Saline Flush 10 ML SYR IVP (12:49)
[2020-07-22] MEDS: Normal Saline Flush 10 ML SYR IVP (13:49)
[2020-07-22] MEDS: cefTRIAXone 2 GM/50 ML BAG IVPB (13:49)
[2020-07-23] MEDS: Normal Saline Flush 10 ML SYR IVP (13:46)
[2020-07-23] MEDS: cefTRIAXone 2 GM/50 ML BAG IVPB (13:46)
[2020-07-24] MEDS: Normal Saline Flush 10 ML SYR IVP (14:01)
[2020-07-24] MEDS: cefTRIAXone 2 GM/50 ML BAG IVPB (14:01)
== END 2020-08-14 23:59 | disposition home or self-care (01) ==
LOC: INF 03:17
PROVIDERS: Visit Provider Nurse Practitioner Acute Care
DX: N17.9 Acute kidney failure, unspecified (principal); I50.33 Acute on chronic diastolic (congestive) heart failure; L03.818 Cellulitis of other sites; R78.81 Bacteremia; Z79.2 Long term (current) use of antibiotics
CPT/HCPCS: 36415; 36592; 80048; 96365; 85025

== ENCOUNTER 2020-07-28 08:12 | Outpatient (REF) | payer OTHER, SELFPAY ==
[2020-07-28 20:50] LABS: HCT 39.2 % (40.0-50.0); HGB 12.3 g/dL (13.5-17.5); MCH 30.9 pg (27.0-33.0); MCHC 31.4 % (32.0-36.0); MCV 98.5 fL (80-95); Platelet Count 383 10^3/uL (130-400); RBC 3.98 10^6/uL (4.36-5.78); RDW 13.8 % (11.8-14.1); RDW-SD 50.4 fL; WBC 7.52 10^3/uL (4.4-10.8)
[2020-07-28 21:14] LABS: ALT 26 U/L (16-63); AST 21 U/L (15-37); Albumin 3.2 g/dL (3.4-5.0); Alkaline Phosphatase 68 U/L (46-116); Anion Gap 6.2 mmol/L (3-11); BUN 25 mg/dL (7-18); Bilirubin, Total 0.4 mg/dL (0.2-1.0); CO2 29.8 mmol/L (21.0-32.0); Calcium 9.8 mg/dL (8.5-10.1); Chloride 100 mmol/L (98-107); Estimated GFR 43.46 (mL/min/1.73m2); Glucose 111 mg/dL (74-106); NT-proBNP 2471 pg/mL (<300); Potassium 4.8 mmol/L (3.5-5.1); Sodium 136 mmol/L (136-145); Total Protein 7.8 g/dL (6.4-8.2)
[2020-07-28 21:15] LABS: Hemoglobin A1C 6.7 % (<5.7)
[2020-07-29 17:53] LABS: PSA, Screening 0.4 ng/mL (0.0-4.5)
== END 2020-07-28 08:32 ==
LOC: NCHCN 08:12
PROVIDERS: PCP Physician Assistant; Visit Provider Physician Assistant
DX: I50.9 Heart failure, unspecified (principal); E11.9 Type 2 diabetes mellitus without complications; I10 Essential (primary) hypertension; I48.91 Unspecified atrial fibrillation; Z12.5 Encounter for screening for malignant neoplasm of prostate
CPT/HCPCS: 80053; 84153; 85027; 83036; 83880

== ENCOUNTER 2021-12-14 17:13 | Outpatient (REF) | payer OTHER, SELFPAY ==
[2021-12-14 19:38] LABS: HCT 38.4 % (40.0-50.0); MCH 30.9 pg (27.0-33.0); MCHC 33.9 % (32.0-36.0); MCV 91.2 fL (80-95); Platelet Count 243 10^3/uL (130-400); RBC 4.21 10^6/uL (4.36-5.78); RDW 12.7 % (11.8-14.1); RDW-SD 42.3 fL; WBC 7.39 10^3/uL (4.4-10.8)
[2021-12-14 20:04] LABS: ALT 24 U/L (16-63); AST 11 U/L (15-37); Albumin 3.2 g/dL (3.4-5.0); Alkaline Phosphatase 90 U/L (46-116); Anion Gap 14.6 mmol/L (3-11); BUN 35 mg/dL (7-18); Bilirubin, Total 0.6 mg/dL (0.2-1.0); CO2 22.4 mmol/L (21.0-32.0); CREATININE 1.4 mg/dL (0.70-1.30); Calcium 9.8 mg/dL (8.5-10.1); Calculated LDL 166 mg/dL (<100); Chloride 92 mmol/L (98-107); Cholesterol 230 mg/dL (<200); Estimated GFR 50.55 (mL/min/1.73m2); HDL Cholesterol 36 mg/dL (40-60); Potassium 4.2 mmol/L (3.5-5.1); Sodium 129 mmol/L (136-145); Total Protein 8.3 g/dL (6.4-8.2); Triglyceride 140 mg/dL (<150)
[2021-12-14 20:07] LABS: Glucose 444 mg/dL (74-106)
[2021-12-14 20:08] LABS: Hemoglobin A1C 13.7 % (<5.7)
[2021-12-15 18:51] LABS: PSA, Screening 0.5 ng/mL (0.0-4.5)
== END 2021-12-14 17:14 | disposition home or self-care (01) ==
LOC: NCHCN 17:13
PROVIDERS: PCP Physician Assistant; Visit Provider Physician Assistant
DX: E11.9 Type 2 diabetes mellitus without complications (principal); Z12.5 Encounter for screening for malignant neoplasm of prostate
CPT/HCPCS: 80053; 80061; 84153; 85027; 83036

== ENCOUNTER 2022-11-27 11:37 | Outpatient (REF) | payer MEDICARE, SELFPAY ==
[2022-11-27 15:29] LABS: HCT 44.1 % (40.0-50.0); HGB 14.3 g/dL (13.5-17.5); MCHC 32.4 % (32.0-36.0); MCV 93 fL (80-95); MPV 12.5 fL (8.0-11.0); Platelet Count 237 10^3/uL (130-400); RBC 4.77 10^6/uL (4.36-5.78); RDW 13.5 % (11.8-14.1); RDW-SD 46.4 fL; WBC 7.72 10^3/uL (4.4-10.8)
[2022-11-27 16:20] LABS: ALT 35 U/L (16-63); AST 28 U/L (15-37); Albumin 3.6 g/dL (3.4-5.0); Alkaline Phosphatase 67 U/L (46-116); Anion Gap 4.3 mmol/L (3-11); BUN 25 mg/dL (7-18); Bilirubin, Total 0.6 mg/dL (0.2-1.0); CO2 33.7 mmol/L (21.0-32.0); CREATININE 1.5 mg/dL (0.70-1.30); Calcium 9.8 mg/dL (8.5-10.1); Calculated LDL 52 mg/dL (<100); Chloride 98 mmol/L (98-107); Cholesterol 105 mg/dL (<200); Glucose 114 mg/dL (74-106); HDL Cholesterol 42 mg/dL (40-60); Potassium 4.5 mmol/L (3.5-5.1); Sodium 136 mmol/L (136-145); Total Protein 8.3 g/dL (6.4-8.2); Triglyceride 57 mg/dL (<150)
[2022-11-27 17:59] LABS: COMMENT (LAB VIEW ONLY) 40.35 mg/dL
[2022-11-27 18:01] LABS: Microalb ug/mg Crea 472.9 ug/mg Cr
== END 2022-11-27 11:38 | disposition home or self-care (01) ==
LOC: NCHCN 11:37
PROVIDERS: PCP Physician Assistant; Visit Provider Physician Assistant
DX: E11.9 Type 2 diabetes mellitus without complications (principal); I48.91 Unspecified atrial fibrillation
CPT/HCPCS: 80053; 80061; 85027; 82043; 82570; 83036

== ENCOUNTER → 2022-12-19 09:57 | Outpatient (BNVA) | payer MEDICARE, SELFPAY | PROVIDERS: PCP Physician Assistant; Referring Provider Physician Assistant; Visit Provider Nurse Practitioner Adult Health | DX: G56.03 Carpal tunnel syndrome, bilateral upper limbs (principal); G56.23 Lesion of ulnar nerve, bilateral upper limbs | CPT/HCPCS: 95911; 99203; 99213 ==

== ENCOUNTER → 2023-02-12 08:38 | Outpatient (BNVA) | payer MEDICARE, SELFPAY | PROVIDERS: PCP Physician Assistant; Referring Provider Physician Assistant; Visit Provider Student in an Organized Health Care Education/Training Program | DX: G56.01 Carpal tunnel syndrome, right upper limb (principal) | CPT/HCPCS: 99213 ==

== ENCOUNTER 2024-05-09 17:06 | Emergency (ER) | payer MEDICARE, SELFPAY ==
[2024-05-09] VITALS (150 sets, daily range): BP systolic 75–163; BP diastolic 39–138; PULSE 56–101; RESP 5–36; TEMP 36.3–36.7; O2SAT 93–99
--- NOTE | 2024-05-09 17:00 | RT.EKG_ITS ---
APPROVED REPORT Exam: Resting ECG Reason for Exam: Weakness Patient Location: E HR:81 bpm ECG Measurements Heart Rate 81 AXIS NV [id number] P [id number] QRSd 116 QRS -51 QT 405 T 50 QTc 472 Conclusion Atrial fibrillation...V-rate 64- 96, irreg A-activity Left anterior fascicular block...axis(240,-40), init forces inf Rate controlled atrial fibrillation at a rate of 81 with left anterior fascicular block. QTc within normal limits. No acute injury pattern. Appears similar to prior dated 4 years ago.
--- NOTE | 2024-05-09 17:30 | RT.EKG_ITS ---
APPROVED REPORT Exam: Resting ECG Reason for Exam: shortness of breath Patient Location: E HR:86 bpm ECG Measurements Heart Rate 86 AXIS SD [id number] P [id number] QRSd 118 QRS -53 QT 391 T 51 QTc 476 Conclusion Atrial fibrillation...? atrial activity Left anterior fascicular block...axis(240,-40), init forces inf Rate controlled atrial fibrillation at a rate of 86 with interventricular conduction delay. Left ant erior fascicular block. T wave flattening in aVL. No acute injury pattern. Appears similar to jaylon argueta dated earlier this evening.
[2024-05-09] MEDS: Normal Saline 500 ML 250 ML IV (17:44)
[2024-05-09] MEDS: Albuterol/Ipratropium 3 ML UPD VIAL UPD ×2 (17:50→20:08)
[2024-05-09 17:55] LABS: BE (Venous) 1 mmol/L (-2-3); HCO3 (Venous) 27 mmol/L (23-28); O2 Sat (Venous) 42 %; TCO2 (Venous) 25 mmol/L (24-29); pCO2 (Venous) 54 mmHg (41-51); pH (Venous) 7.31 (7.31-7.41); pO2 (Venous) 26 mmHg
[2024-05-09 17:58] LABS: Abs Immature Grans 1.98 10^3/uL (0.0-0.06); HGB 12.2 g/dL (13.5-17.5); Lactate 2.2 mmol/L (0.6-1.4); MCH 30.7 pg (27.0-33.0); MCV 93 fL (80-95); MPV 12.4 fL (8.0-11.0); Platelet Count 145 10^3/uL (130-400); RBC 3.98 10^6/uL (4.36-5.78); RDW 15.3 % (11.8-14.1); RDW-SD 52.4 fL
[2024-05-09 18:01] LABS: ESR 60 mm/hr (0-20)
--- NOTE | 2024-05-09 18:08 | DI.RAD_ITS ---
Exam(s) XR PORTABLE CHEST AP EXAM: XR PORTABLE CHEST AP CLINICAL HISTORY: shortness of breath. TECHNIQUE: 2D digital imaging was performed. COMPARISON: CR,XR XR CHEST 2V PA LATERAL from 07/11/2020 FINDINGS: Single AP portable view. Heart size is upper normal. The mediastinum is not widened. Left lung is clear. Increased density over the right noted but appears to be related to overlapping scapular shadow. No obvious air bronchograms. IMPRESSION: No obvious acute pulmonary findings on this single AP portable view of the chest.Recommend nonportabl e PA and lateral views when clinically DATA REPOSITORY: RADIATION DOSE DELIVERED:
[2024-05-09 18:13] LABS: WBC 33.55 10^3/uL (4.4-10.8)
--- NOTE | 2024-05-09 18:15 | ED.PROG_ITS ---
Date of service: 05/09/24 Time of Service: 18:15 Medical Decision Making This patient arrived during my shift in the ED. He has a history of heart failure and was hypotensive most likely secondary to right lower extremity cellulitis. He is being treated for sepsis and will require hospitalization. Patient has 2 18-gauge IVs. Patient was transiently on peripheral pressors however he was fluid responsive pressors were weaned. [place] [facility] [place] He was found to have oliguric renal failure for which Godinez catheter was placed for a assessing into and outs. He will benefit from tertiary care treatment I unfortunately do not have orthopedics or podiatry on this weekend in the event that patient needs source control with toe amputation. Quality:[facility] Health Related Social Needs: No Data to Display Discharge Plan Disposition Patient Disposition: Transfer-Acute Inpatient Care Specific Acute Inpt Facility: [facility] Condition: Critical Discharge Details Clinical Impression: Cellulitis of right leg, Bacteremia, Diabetes mellitus type 2 in obese, Acute renal failure, Acute hyponatremia, Septic shock Primary Care Provider: Pepe Bill ED Provider: Anna Barber [place] Meds and New Rx's Prescriptions: No Action acetaminophen 500 mg tablet 500 mg PO Q6H PRN multivitamin [Daily Vitamin] 1 EACH tablet 1 ea PO DAILY diltiazem HCl 240 MG capsule,ext.rel 24h degradable 240 mg PO DAILY Qty: 90 Xarelto 15 MG tablet 15 mg PO DAILY Qty: 90 lisinopril 5 mg tablet 5 mg PO DAILY insulin glargine [Lantus Solostar U-100 Insulin] 100 unit/mL (3 mL) insulin pen 15 unit subcut QPM atorvastatin 40 mg tablet 40 mg PO DAILY insulin lispro [Humalog KwikPen Insulin] 100 unit/mL insulin pen 8 unit subcut TID carvedilol 25 mg tablet 25 mg PO BID Rx Instructions: must administer with a meal/food liraglutide 0.6 mg/0.1 mL (18 mg/3 mL) pen injector 1.2 mg subcut DAILY magnesium oxide 400 MG tablet 400 mg PO BID Qty: 60 0RF furosemide [Lasix] 20 mg tablet 40 mg PO BID Qty: 0 0RF (DME) blood-glucose meter [Blood Glucose Monitoring] Kit See Rx Instructions .ROUTE .MEDSUPPLY Qty: 1 0RF Rx Instructions: ac and hs (DME) lancets-blood glucose strips 30 gauge combo pack See Rx Instructions .ROUTE .MEDSUPPLY Qty: 200 0RF Rx Instructions: ac and hs Discharge Data Discharge Date/Time-TO BE ENTERED AT DEPARTURE: 05/10/24 00:53 POCUS Exam (ED) Limited Cardiac Exam DATE OF EXAM: 05/09/24 TIME OF EXAM: 18:17 PROVIDER THAT PERFORMED THE STUDY: Juan José Lopez IS THIS A REPEAT EXAM DURING THIS ENCOUNTER: no REASON FOR EXAM: Septic Shock VISUALIZED STRUCTURES: Four Chambers and Left ventricle VIEW OBTAINED: Apical 4-Chamber, Parasternal long-axis and Subxiphoid PERTINENT FINDINGS/IMPRESSION: No pericardial effusion and No RV dilation DIFFERENTIAL DIAGNOSES: No B-lines bilaterally, good squeeze, RV less than LV, no significant pericardi al effusion. Exam complete
[2024-05-09 18:18] LABS: Absolute Lymphocyte Count 1.01 10^3/uL (1.2-3.4); Absolute Monocyte Count 2.68 10^3/uL (0.1-0.8); Absolute Neutrophil Count 29.86 10^3/uL (1.2-6.7); Bands % 2 %; Diff Comment Manual Differential; RBC Morphology Normal
[2024-05-09] MEDS: Norepinephrine in D5W 8 MG/250 ML BAG 9.375 MG IV (18:19)
[2024-05-09 18:20] LABS: ALT 25 U/L (16-63); AST 15 U/L (15-37); Albumin 2.9 g/dL (3.4-5.0); Alkaline Phosphatase 38 U/L (46-116); Anion Gap 9.2 mmol/L (3-11); BUN 75 mg/dL (7-18); Bilirubin, Total 0.73 mg/dL (0.2-1.0); CO2 27.8 mmol/L (21.0-32.0); Calcium 9.1 mg/dL (8.5-10.1); Chloride 93 mmol/L (98-107); Estimated GFR 12.64 (mL/min/1.73m2); Glucose 148 mg/dL (74-106); NT-proBNP 6988 pg/mL (<300); Potassium 5.4 mmol/L (3.5-5.1); Sodium 130 mmol/L (136-145); Total Protein 8.3 g/dL (6.4-8.2)
[2024-05-09] MEDS: CEFEPIME 2 GM in Normal Saline 100 ML IVPB (18:21)
[2024-05-09 18:22] LABS: CREATININE 4.7 mg/dL (0.70-1.30)
[2024-05-09 18:26] LABS: C-Reactive Protein > 25.00 mg/dL (<or=0.5)
[2024-05-09] MEDS: Normal Saline 1,000 ML 750 ML IV (18:34)
[2024-05-09 18:43] LABS: COVID-19 PCR Negative (Negative); Influenza A PCR Negative (Negative); Influenza B PCR Negative (Negative); RSV PCR Negative (Negative)
[2024-05-09 18:44] LABS: Source Nasopharynx
[2024-05-09] MEDS: methylPREDNISolone SUCC 125 MG VIAL IVP (19:09)
[2024-05-09 19:11] LABS: Creatine Kinase 65 U/L (39-308)
[2024-05-09] MEDS: Lidocaine 2% Jelly 11 ML SYR (19:40)
--- NOTE | 2024-05-09 20:02 | DI.CT_ITS ---
Exam(s) CT CHEST/ABD/PEL WO EXAM: CT CHEST/ABD/PEL WO CLINICAL HISTORY: renal failure, sepsis TECHNIQUE: Imaging Protocol: Axial computed tomography images with coronal and sagittal reformatted images were created and reviewed COMPARISON: CR XR PORTABLE CHEST AP from 05/09/2024 FINDINGS: The examination is limited due to patient motion artifact. CHEST: Tracheobronchial tree: Patent where visualized. Pulmonary parenchyma: No consolidation or dominant measurable mass. No architectural distortion. Atel ectasis or scarring is seen in the lung bases. Mediastinum and Tigist: No dominant adenopathy or fluid collection. The esophagus is unremarkable. Thyroid gland: Unremarkable. Pleura: No effusion or pneumothorax. Heart: Cardiomegaly. Coronary artery calcifications are present. No pericardial effusion. Aorta: Thoracic aorta non-dilated. Atherosclerotic calcification is present. Lymph nodes: Within normal limits. Bones:Within normal limits for the patient's age. Old healed right rib fractures are seen. Soft tissues: Unremarkable. ABDOMEN: Liver: Normal density. No measurable mass. Gallbladder and Biliary Tract: No radiodense calculus or dilation. Pancreas: Normal density, no abnormal calcifications or inflammatory process. Spleen: Normal. Adrenals: No masses seen. Kidneys: Normal size, contour and axis. No radiodense stones or obstructive uropathy. There is a cyst in the superior pole of the right kidney. No follow-up is recommended. Abdominal Aorta: Abdominal portion non-dilated. Atherosclerotic calcification is present. Bowel: There are few scattered diverticula in the colon but no evidence of acute diverticulitis. No evidence of bowel obstruction or bowel wall thickening. No evidence of appendicitis. Peritoneal Cavity: No ascites, collection or mesenteric inflammatory response. No free air. Lymph Nodes: Within normal limits. Bones: Within normal limits for the patient's age. Soft Tissues: Small fat containing bilateral inguinal hernias. PELVIS: Bladder: The urinary bladder is decompressed. There is a Godinez catheter in place. There is a small amount of air within the urinary bladder likely reflecting the catheter placement. Reproductive Organs: Unremarkable as visualized. Lymph Nodes: Within normal limits. Bones: Within normal limits for the patient's age. IMPRESSION: 1. No acute pulmonary process. 2. No acute abdominal or pelvic process. RADIATION DOSE DELIVERED: Total DLP Total DLP DATA REPOSITORY: All CT scans at this facility are submitted to the National Radiology Data Registry (NRDR) Dose Index Registry (DIR) with the [employer] ([employer]). RADIATION OPTIMIZATION: All CT scans at this facility use at least one of these dose optimization te chniques: automated exposure control; mA and/or kV adjustment per patient size (includes targeted exa ms where dose is matched to clinical indication); or iterative reconstruction.
--- NOTE | 2024-05-09 20:02 | DI.CT_ITS ---
Exam(s) CT LOWER EXTREMITY RT WO EXAM: CT LOWER EXTREMITY RT WO CLINICAL HISTORY: cellulitis, toe injury. TECHNIQUE: Imaging Protocol: Axial computed tomography images with coronal and sagittal reformatted images were created and reviewed. COMPARISON: No exams were available for comparison FINDINGS: Bones: The osseous structures and articular surfaces are intact. Bony alignment is satisfactory. N o cellulitic or osteomyelitic changes are identified. No lytic or sclerotic lesions are identified. Soft Tissues: There is edema seen in the soft tissues of the lower extremity and foot with skin thick ening particularly seen in the lower extremity. This can be seen with cellulitis. No focal fluid co llection is seen to suggest an abscess. There is soft tissue deformity at the tip of the right 2nd t oe which may represent a laceration or ulceration. Please correlate clinically. No radiopaque forei gn body is seen. IMPRESSION: 1. Edema seen in the soft tissues of the lower extremity with skin thickening. This may represent ce llulitis. No focal abscess is identified. 2. Laceration or ulceration involving the distal aspect of the right 2nd toe. No radiopaque foreign body. 3. No findings to suggest osteomyelitis. RADIATION DOSE DELIVERED: Total DLP Total DLP DATA REPOSITORY: All CT scans at this facility are submitted to the National Radiology Data Registry (NRDR) Dose Index Registry (DIR) with the [employer] ([employer]). RADIATION OPTIMIZATION: All CT scans at this facility use at least one of these dose optimization te chniques: automated exposure control; mA and/or kV adjustment per patient size (includes targeted exa ms where dose is matched to clinical indication); or iterative reconstruction.
[2024-05-09] MEDS: Calcium Gluconate 4.65 MEQ/10 ML VIAL 4.65 MG IVP (20:13)
[2024-05-09 20:21] LABS: Lactate 1.5 mmol/L (0.6-1.4)
--- NOTE | 2024-05-09 20:29 | NUR.NOTE ---
Patient presented to the Emergency department, reported that last night he started feeling weak and dizziness. Reported that he started having SOB but he was sitting in his recliner because he couldn't breathe. Also reported that he sustained injury to his right 2 toe from a cinder block weighing 40LBs close to weeks ago.
[2024-05-09 20:35] LABS: Anion Gap 8.4 mmol/L (3-11); BUN 74 mg/dL (7-18); CO2 27.6 mmol/L (21.0-32.0); Calcium 8.4 mg/dL (8.5-10.1); Chloride 94 mmol/L (98-107); Estimated GFR 12.64 (mL/min/1.73m2); Glucose 142 mg/dL (74-106); Potassium 5.8 mmol/L (3.5-5.1); Sodium 130 mmol/L (136-145)
[2024-05-09 20:36] LABS: Bilirubin Small (Negative); Blood Trace-lysed (Negative); Clarity Clear (Clear); Glucose Negative (Negative); Ketones Negative (Negative); Leukocyte Esterase Negative (Negative); Nitrite Negative (Negative); Urobilinogen 0.2 mg/dL (Up to 0.2)
[2024-05-09 20:41] LABS: CREATININE 4.7 mg/dL (0.70-1.30)
--- NOTE | 2024-05-09 20:41 | DI.VRAD_ITS ---
PROCEDURE INFORMATION: Exam: CT Chest Without Contrast; Diagnostic Exam date and time: 05/09/2024 7:36 PM Age: 69 years old Clinical indication: Renal failure, sepsis TECHNIQUE: Imaging protocol: Diagnostic computed tomography of the chest without contrast. 3D rendering (Not supervised by radiologist): MIP and/or 3D reconstructed images were created by the technologist. Radiation optimization: All CT scans at this facility use at least one of these dose optimization techniques: automated exposure control; mA and/or kV adjustment per patient size (includes targeted exams where dose is matched to clinical indication); or iterative reconstruction. COMPARISON: CR XR PORTABLE CHEST AP 05/09/2024 6:05 PM FINDINGS: Lungs: No acute alveolar or ground glass infiltrate. Inferior lingular linear parenchymal scarring or subsegmental collapse / atelectasis. Pleural spaces: No pleural fluid collection. No pneumothorax. Heart: No pericardial effusion. Coronary artery calcification. Heart size at the upper limits of normal. Lymph nodes: No enlarged lymph nodes. Vasculature: Normal caliber thoracic aorta without aneurysm. Appendix: Normal appendix. Bones/joints: Old right-sided rib fractures. Spinal degenerative changes. Soft tissues: Mild gynecomastia. IMPRESSION: No acute pulmonary infiltrate or pleural fluid collection. PROCEDURE INFORMATION: Exam: CT Abdomen And Pelvis Without Contrast Exam date and time: 05/09/2024 7:36 PM Age: 69 years old Mild lumbar dextroscoliosis. TECHNIQUE: Imaging protocol: Computed tomography of the abdomen and pelvis without contrast. 3D rendering (Not supervised by radiologist): MIP and/or 3D reconstructed images were created by the technologist. Radiation optimization: All CT scans at this facility use at least one of these dose optimization techniques: automated exposure control; mA and/or kV adjustment per patient size (includes targeted exams where dose is matched to clinical indication); or iterative reconstruction. COMPARISON: RENAL 07/12/2020 9:38 AM FINDINGS: Liver: Normal. No mass. Gallbladder and biliary ducts: Normal. No calcified stones. No ductal dilation. Pancreas: Normal. No ductal dilation. Spleen: Normal. No splenomegaly. Adrenal glands: Normal. No mass. Kidneys and ureters: No hydronephrosis. No calcified renal or ureteral stones. No perinephric stranding or perinephric fluid. Stomach and bowel: Unremarkable. No obstruction. No mucosal thickening. Appendix: No evidence of appendicitis. Intraperitoneal space: No free air. No significant fluid collection. Vasculature: The abdominal aorta is normal in caliber without aneurysm. Scattered arterial calcifications. Lymph nodes: No enlarged lymph nodes. Urinary bladder: Godinez catheter within decompressed urinary bladder. Reproductive: Unremarkable as visualized. Bones/joints: Spinal degenerative changes. Soft tissues: Small fat-containing inguinal hernias. IMPRESSION: No acute intra-abdominal or pelvic process. Dictated and Authenticated by: Hernesto Sue MD. Ordering:TAMIKA Castillo MD
[2024-05-09 20:44] LABS: Bacteria Negative HPF (Negative); C & S Indicated? No; Crystals Negative HPF (Negative); Epithelial Cells Few HPF (Negative); Mucus Trace (Negative); WBC 0-2 HPF (0-5)
[2024-05-09] MEDS: Normal Saline 500 ML IV (20:50)
[2024-05-09 20:56] LABS: Creatinine,Urine 178.13 mg/dL; Sodium, Urine 34 mmol/L
[2024-05-09] MEDS: VANCOMYCIN 2,500 MG in Normal Saline 500 ML 250 MG IVPB (20:59)
--- NOTE | 2024-05-09 21:02 | DI.VRAD_ITS ---
PROCEDURE INFORMATION: Exam: CT Right Lower Extremity Without Contrast Exam date and time: 05/09/2024 7:41 PM Age: 69 years old Clinical indication: Right foot cellulitis, toe injury, diabetic TECHNIQUE: Imaging protocol: CT of the right lower extremity without contrast was performed. Radiation optimization: All CT scans at this facility use at least one of these dose optimization techniques: automated exposure control; mA and/or kV adjustment per patient size (includes targeted exams where dose is matched to clinical indication); or iterative reconstruction. COMPARISON: US EXTREMITY VENOUS BI 07/12/2020 9:45 AM FINDINGS: Bones/joints: No acute fracture. No dislocation. No CT evidence of osteomyelitis. Soft tissues: Right knee, right tib-fib, right ankle, and right foot region soft tissue edema / cellulitis. No discrete soft tissue abscess. Soft tissue irregularity involving the distal right 2nd toe. Vasculature: Scattered arterial calcifications. IMPRESSION: 1. Right knee, right tib-fib, right ankle, and right foot region soft tissue edema / cellulitis. 2. No discrete soft tissue abscess. 3. Soft tissue irregularity involving the distal right 2nd toe. 4. No CT evidence of osteomyelitis. Dictated and Authenticated by: Hernesto Sue MD. Ordering:TAMIKA Castillo MD
[2024-05-09] MEDS: DEXTROSE 10%-WATER 500 ML 70 ML IV (21:29)
[2024-05-09] MEDS: PIPERACILLIN/TAZO 3.375 GM in Normal Saline 50 ML IVPB (21:31)
[2024-05-09] MEDS: Insulin REGULAR-Human 100 UNITS/ML UNIT 10 UNITS IV (21:32)
[2024-05-09] MEDS: Sodium Zirconium Cyclosilicate 10 GM PKT PO (21:32)
[2024-05-09] MEDS: Dextrose 50%-Water 25 GM/50 ML SYR IVP (21:35)
[2024-05-09] MEDS: Normal Saline 1,000 ML 100 ML IV (21:46)
--- NOTE | 2024-05-09 23:18 | W.ED.GENAD ---
Discharge Plan Disposition Patient Disposition: Transfer-Acute Inpatient Care Specific Acute Inpt Facility: [facility] Condition: Critical Discharge Details Clinical Impression: Cellulitis of right leg, Bacteremia, Diabetes mellitus type 2 in obese, Acute renal failure, Acute hyponatremia, Septic shock Primary Care Provider: Pepe Bill ED Provider: Anna Barber Home Meds and New Rx's Prescriptions: No Action acetaminophen 500 mg tablet 500 mg PO Q6H PRN multivitamin [Daily Vitamin] 1 EACH tablet 1 ea PO DAILY diltiazem HCl 240 MG capsule,ext.rel 24h degradable 240 mg PO DAILY Qty: 90 Xarelto 15 MG tablet 15 mg PO DAILY Qty: 90 lisinopril 5 mg tablet 5 mg PO DAILY insulin glargine [Lantus Solostar U-100 Insulin] 100 unit/mL (3 mL) insulin pen 15 unit subcut QPM atorvastatin 40 mg tablet 40 mg PO DAILY insulin lispro [Humalog KwikPen Insulin] 100 unit/mL insulin pen 8 unit subcut TID carvedilol 25 mg tablet 25 mg PO BID Rx Instructions: must administer with a meal/food liraglutide 0.6 mg/0.1 mL (18 mg/3 mL) pen injector 1.2 mg subcut DAILY magnesium oxide 400 MG tablet 400 mg PO BID Qty: 60 0RF furosemide [Lasix] 20 mg tablet 40 mg PO BID Qty: 0 0RF (DME) blood-glucose meter [Blood Glucose Monitoring] Kit See Rx Instructions .ROUTE .MEDSUPPLY Qty: 1 0RF Rx Instructions: ac and hs (DME) lancets-blood glucose strips 30 gauge combo pack See Rx Instructions .ROUTE .MEDSUPPLY Qty: 200 0RF Rx Instructions: ac and hs Discharge Data Discharge Date/Time-TO BE ENTERED AT DEPARTURE: 05/10/24 00:53 HPI General Date/Time Provider Initiated Documentation: 05/09/24 17:22. HPI Narrative: 69-year-old male presenting with report weakness and lightheadedness. History of cellulitis and states he feels the same. He states he has been unable to get out of his chair since this morning. Took Tylenol prior to arrival for concern for fevers. Does report he injured his foot approximately 2 weeks ago after dropping a cinder block on it. Has not taken his socks off since that time. Denies any head injury or confusion. Denies any nausea vomiting or diarrhea. Typically drinks a gallon of water a day. Has not had his typical amount of water in the past 24 hours per patient. Related Data Home Medications ?Medication ?Instructions ?Recorded ?Confirmed multivitamin (Daily Vitamin tablet) 1 ea PO DAILY 03/20/13 05/09/24 magnesium oxide 400 mg (241.3 mg 400 mg PO BID #60 tabs 06/30/14 05/09/24 magnesium) tablet diltiazem HCl 240 mg 240 mg PO DAILY ##90 07/24/16 05/09/24 capsule,extended release 24 hr, controlled rivaroxaban 15 mg tablet (Xarelto) 15 mg PO DAILY #90 tab-caps 07/24/16 05/09/24 blood-glucose meter (Blood Glucose #1 ea 07/17/20 05/09/24 Monitoring kit) furosemide 20 mg tablet (Lasix) 40 mg (2 x 20 mg) PO BID #0 tabs 07/17/20 05/09/24 lancets 30 gauge and blood glucose #200 ea 07/17/20 05/09/24 strips combo pack atorvastatin 40 mg tablet 40 mg PO DAILY 11/28/22 05/09/24 carvedilol 25 mg tablet 25 mg PO BID 11/28/22 05/09/24 insulin glargine 100 unit/mL (3 15 unit subcut QPM 11/28/22 05/09/24 mL) subcutaneous pen (Lantus Solostar U-100 Insulin) insulin lispro 100 unit/mL 8 unit subcut TID 11/28/22 05/09/24 subcutaneous pen (Humalog KwikPen (U-100) Insulin) liraglutide 0.6 mg/0.1 mL (18 mg/3 1.2 mg subcut DAILY 11/28/22 05/09/24 mL) subcutaneous pen injector lisinopril 5 mg tablet 5 mg PO DAILY 11/28/22 05/09/24 acetaminophen 500 mg tablet 500 mg PO Q6H PRN 12/19/22 05/09/24 Previous Rx's ?Medication ?Instructions ?Recorded magnesium oxide 400 mg (241.3 mg 400 mg PO BID #60 tabs 06/30/14 magnesium) tablet blood-glucose meter (Blood Glucose #1 ea 07/17/20 Monitoring kit) furosemide 20 mg tablet (Lasix) 40 mg (2 x 20 mg) PO BID #0 tabs 07/17/20 lancets 30 gauge and blood glucose #200 ea 07/17/20 strips combo pack Allergies Allergy/AdvReac Type Severity Reaction Status Date / Time No Known Allergies Allergy Verified 05/09/24 21:25 General Stated Complaint: Dizzy/Sync RICKIE: 3 Exam Narrative Exam Narrative: 69-year-old male alert and oriented in respiratory distress, appears ill, pupils equal round reactive to light and accommodation, knee moist mucous membranes, moderate respiratory distress with audible wheezes, irregularly irregular rhythm, no murmur, no abdominal tenderness right lower extremity with cellulitis extending from first and second digits up to popliteal region. There is no crepitus, there is significant maceration and healing laceration with malodor and purulent drainage from patient's second and first digits. Course Vital Signs Vital signs: Vital Signs Temperature 36.3 C L 05/09/24 17:13 Pulse 76 05/09/24 17:13 Respiratory Rate 25 H 05/09/24 17:13 Pulse Oximetry 95 05/09/24 17:13 Temperature 36.3 C L 05/09/24 17:13 Temperature Source Axillary 05/09/24 17:13 Pulse 86 05/09/24 22:33 Pulse 92 H 05/09/24 22:33 Respiratory Rate 23 05/09/24 22:33 Respiratory Effort Normal 05/09/24 20:40 Respiratory Depth Shallow 05/09/24 20:40 Blood Pressure 120/61 05/09/24 22:33 Blood Pressure Mean 81 05/09/24 22:33 Blood Pressure Position Sitting 05/09/24 17:13 Pulse Oximetry 94 05/09/24 22:33 Oxygen Delivery Method Room Air 05/09/24 20:08 Oxygen Flow Rate 0 05/09/24 20:08 Pain Level 0 05/09/24 17:13 Lab/Test Results Lab/Test Results: 05/09/24 20:47 Foot - Right Wound Culture - Pending 05/09/24 20:47 Foot - Right Gram Stain - Final 05/09/24 17:58 Blood Blood Culture - Pending 05/09/24 17:44 Blood Blood Culture - Pending Laboratory Tests Range/Units 05/09/24 05/09/24 05/09/24 17:44 18:00 19:08 WBC (4.4-10.8) 10^3/uL 33.55 H* RBC (4.36-5.78) 10^6/uL 3.98 L Hgb (13.5-17.5) g/dL 12.2 L Hct (40.0-50.0) % 37.0 L MCV (80-95) fL 93 MCH (27.0-33.0) pg 30.7 MCHC (32.0-36.0) % 33.0 RDW (11.8-14.1) % 15.3 H Plt Count (130-400) 10^3/uL 145 MPV (8.0-11.0) fL 12.4 H Immature Gran % % 0.0 Neutrophils % % 87.0 Band Neutrophils % % 2 Lymphocytes % % 3.0 Monocytes % % 8.0 Eosinophils % % 0.0 Basophils % % 0.0 Nucleated RBC % (0.0-0.3) % 0.0 Absolute Neutrophils (1.2-6.7) 10^3/uL 29.86 H Absolute Lymphocytes (1.2-3.4) 10^3/uL 1.01 L Absolute Monocytes (0.1-0.8) 10^3/uL 2.68 H Absolute Eosinophils (0.0-0.7) 10^3/uL 0.00 Absolute Basophils (0.0-0.2) 10^3/uL 0.00 RBC Morphology Normal ESR (0-20) mm/hr 60 H VBG pH (7.31-7.41) 7.31 VBG pCO2 (41-51) mmHg 54 H VBG pO2 mmHg 26 VBG HCO3 (23-28) mmol/L 27 VBG Total CO2 (24-29) mmol/L 25 VBG O2 Saturation % 42 VBG Base Excess (-2-3) mmol/L 1 VBG Lactate (0.6-1.4) mmol/L 2.2 H* Sodium (136-145) mmol/L 130 L Potassium (3.5-5.1) mmol/L 5.4 H Chloride (98-107) mmol/L 93 L Carbon Dioxide (21.0-32.0) mmol/L 27.8 Anion Gap (3-11) mmol/L 9.2 BUN (7-18) mg/dL 75 H Creatinine (0.70-1.30) mg/dL 4.7 H* Est GFR (CKD-EPI 2020) (mL/min/1.73m2) 12.64 Glucose (74-106) mg/dL 148 H Calcium (8.5-10.1) mg/dL 9.1 Total Bilirubin (0.2-1.0) mg/dL 0.73 AST (15-37) U/L 15 ALT (16-63) U/L 25 Alkaline Phosphatase (46-116) U/L 38 L Creatine Kinase (39-308) U/L 65 C-Reactive Protein (<or=0.5) mg/dL > 25.00 H NT-Pro-B Natriuret Pep (<300) pg/mL 6988 H Total Protein (6.4-8.2) g/dL 8.3 H Albumin (3.4-5.0) g/dL 2.9 L Procalcitonin ng/mL 57.0 Urine Color (Yellow) Dark Yellow Urine Clarity (Clear) Clear Urine pH (5-8) 5.0 Ur Specific [place] (1.005-1.025) 1.020 Urine Protein (Neg-Trace) mg/dL 30 H Urine Ketones (Negative) mg/dL Negative Urine Blood (Negative) Trace-lysed H Urine Nitrite (Negative) Negative Urine Bilirubin (Negative) Small H Urine Urobilinogen (Up to 0.2) mg/dL 0.2 Ur Leukocyte Esterase (Negative) Negative Urine RBC (0-2) HPF 3-5 H Urine WBC (0-5) HPF 0-2 Ur Epithelial Cells (Negative) HPF Few Urine Crystals (Negative) HPF Negative Urine Bacteria (Negative) HPF Negative Urine Mucus (Negative) Trace Ur Culture Indicated? No Ur Random Creatinine mg/dL Ur Random Sodium mmol/L Urine Glucose (Negative) mg/dL Negative COVID-19 Source Nasopharynx SARS-CoV-2 (PCR) (Negative) Negative Influenza Type A (PCR) (Negative) Negative Influenza Type B (PCR) (Negative) Negative RSV (PCR) (Negative) Negative Range/Units 05/09/24 05/09/24 20:17 20:28 WBC (4.4-10.8) 10^3/uL RBC (4.36-5.78) 10^6/uL Hgb (13.5-17.5) g/dL Hct (40.0-50.0) % MCV (80-95) fL MCH (27.0-33.0) pg MCHC (32.0-36.0) % RDW (11.8-14.1) % Plt Count (130-400) 10^3/uL MPV (8.0-11.0) fL Immature Gran % % Neutrophils % % Band Neutrophils % % Lymphocytes % % Monocytes % % Eosinophils % % Basophils % % Nucleated RBC % (0.0-0.3) % Absolute Neutrophils (1.2-6.7) 10^3/uL Absolute Lymphocytes (1.2-3.4) 10^3/uL Absolute Monocytes (0.1-0.8) 10^3/uL Absolute Eosinophils (0.0-0.7) 10^3/uL Absolute Basophils (0.0-0.2) 10^3/uL RBC Morphology ESR (0-20) mm/hr VBG pH (7.31-7.41) VBG pCO2 (41-51) mmHg VBG pO2 mmHg VBG HCO3 (23-28) mmol/L VBG Total CO2 (24-29) mmol/L VBG O2 Saturation % VBG Base Excess (-2-3) mmol/L VBG Lactate (0.6-1.4) mmol/L 1.5 H Sodium (136-145) mmol/L 130 L Potassium (3.5-5.1) mmol/L 5.8 H Chloride (98-107) mmol/L 94 L Carbon Dioxide (21.0-32.0) mmol/L 27.6 Anion Gap (3-11) mmol/L 8.4 BUN (7-18) mg/dL 74 H Creatinine (0.70-1.30) mg/dL 4.7 H* Est GFR (CKD-EPI 2020) (mL/min/1.73m2) 12.64 Glucose (74-106) mg/dL 142 H Calcium (8.5-10.1) mg/dL 8.4 L Total Bilirubin (0.2-1.0) mg/dL AST (15-37) U/L ALT (16-63) U/L Alkaline Phosphatase (46-116) U/L Creatine Kinase (39-308) U/L C-Reactive Protein (<or=0.5) mg/dL NT-Pro-B Natriuret Pep (<300) pg/mL Total Protein (6.4-8.2) g/dL Albumin (3.4-5.0) g/dL Procalcitonin ng/mL Urine Color (Yellow) Cancelled Urine Clarity (Clear) Cancelled Urine pH (5-8) Cancelled Ur Specific [place] (1.005-1.025) Cancelled Urine Protein (Neg-Trace) mg/dL Cancelled Urine Ketones (Negative) mg/dL Cancelled Urine Blood (Negative) Cancelled Urine Nitrite (Negative) Cancelled Urine Bilirubin (Negative) Cancelled Urine Urobilinogen (Up to 0.2) mg/dL Cancelled Ur Leukocyte Esterase (Negative) Cancelled Urine RBC (0-2) HPF Urine WBC (0-5) HPF Ur Epithelial Cells (Negative) HPF Urine Crystals (Negative) HPF Urine Bacteria (Negative) HPF Urine Mucus (Negative) Ur Culture Indicated? Ur Random Creatinine mg/dL 178.13 Ur Random Sodium mmol/L 34 Urine Glucose (Negative) mg/dL Cancelled COVID-19 Source SARS-CoV-2 (PCR) (Negative) Influenza Type A (PCR) (Negative) Influenza Type B (PCR) (Negative) RSV (PCR) (Negative) Medical Decision Making Patient is quite ill, he is hypotensive. Secondary to concerning initial assessment, patient was started on telemetry monitoring, EKG, labs, CTs, fluids other cautious use secondary to patient's history of CHF, last ejection fraction in 2019 is documented as greater than 55%. Will give to 50 cc bolus to see how patient responds and given DuoNeb secondary to respiratory distress in the presence of COPD history. Methylprednisone will be initiated. Patient received 125 of methylprednisone 250 bolus of fluid, DuoNeb and blood pressure continued to fall so Levophed at 5 mcg a milligram was initiated. Patient tolerated this well, EKG without ischemia. Blood pressure is improving, creatinine returned at 5.4, potassium of 5.4. Will give calcium, insulin 10 units IV, Lokelma, and D50 1 amp. D10 was initiated to prevent hypoglycemia and pt remains between 120-170. Initial lactate of 2.2, recheck 1.4, procalcitonin of 57, patient has only had 400 cc of urine output, he is received 1.5 cc of NS, using caution with patient's history of CHF. Please see attendings [id number] ultrasound, limited findings concerning for acute CHF or pulmonary edema. Will initiate 200 cc an hour of fluids and continue to monitor MYA. CPK within normal limits. Mild hyponatremia at 130. Will recheck BMP. Case was discussed with Dr. Hernandez, e mail system administrator at [facility] who is accepted patient in transfer. Patient is pending transfer to [facility] at this time. There is unfortunately delay transferring patient secondary to lack of medic capacity in the area. Patient during this time normalized his blood pressure and the norepinephrine was discontinued. Patient did have a brief episode of blood pressure 150/88 and had some chest pressure, EKG was ordered without acute abnormality and this resolved and was very transient in nature. At this time patient shows significant improvement but creatinine remains elevated at 4.7. Secondary to lack of orthopedic and podiatry capacity on the weekends, lack of cardiology availability on the weekend for echocardiogram, and lack of dialysis services should the patient require dialysis with his hyperkalemia and acute renal failure, I think he requires transfer to a tertiary care facility for continued care. For the cellulitis patient received vancomycin, cefepime, and Zosyn for broad-spectrum coverage. Wound culture shows gram-positive cocci. Wound was debrided, however there is a residual piece of cloth in the site that was unable to be removed. Tetanus was updated in 2022. Patient remains alert and oriented, improving vitals. Quality:SDIL Health Related Social Needs: No Data to Display Critical Care Time Critical Care Time Attestation: Approximately 60 minutes of critical care time secondary to acute bacteremia, cellulitis, respiratory distress, acute kidney failure, requiring multiple nurses assessments, telemetry monitoring, CT interpretation and evaluation, diagnostic lab interpretation and review, IV fluid resuscitation, acute intervention for hyperkalemia in the presence of acute kidney failure requiring insulin, calcium, and Lokelma, dextrose infusion, DuoNeb administration and respiratory involvement, tertiary care e mail system administrator consultation and [facility] All Active Problems (Updated 05/09/24 @ 23:53 by PRASANNA Vanegas) Septic shock (Acute) Acute hyponatremia (Acute) Acute renal failure (Acute) Right carpal tunnel syndrome (Acute) Atrial fibrillation with RVR (Acute) Cellulitis of right leg (Acute) HTN (hypertension) (Chronic) H/O surgical procedure (Chronic) a. Umbilical herniorrhaphy b. Tonsillectomy Right lumbar radiculitis (Chronic) Spondylosis of lumbar region without myelopathy or radiculopathy (Chronic) Cellulitis (Acute) CHF (congestive heart failure) (Chronic) DVT prophylaxis (Acute) Discharge planning issues (Acute) Bacteremia (Acute) Acute kidney injury (Acute) PAD (peripheral artery disease) (Acute) Acute on chronic diastolic CHF (congestive heart failure), NYHA class 1 (Acute) Atrial fibrillation (Chronic) Diabetes mellitus type 2 in obese (Acute) CKD (chronic kidney disease) stage 3, GFR 30-59 ml/min (Acute 08/28/14) 07/2014 US R renal cyst otherwise NL Osteopenia (Acute 06/02/13) Overweight (Acute 04/08/12) Bilateral carpal tunnel syndrome (Acute) Cubital tunnel syndrome, bilateral (Acute) Medical History Anxiety Atrial fibrillation 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) broken rt thumb (10/10/16) Carpal tunnel syndrome Chronic back pain COPD (chronic obstructive pulmonary disease) Dilated aortic root Diverticulosis Edema Essential hypertension 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) Male erectile disorder (06/02/13) Onychodystrophy Physical deconditioning Subjective pulsatile tinnitus Type 2 diabetes mellitus Vitamin D deficiency Surgical History Colonoscopy - IV Sedation (01/15/15) Dr Templeton Right knee surgery after injury Family History Grandfather Diabetes Grandmother Diabetes Social History Smoking/Tobacco Use Status: Former Tobacco Use Smoking risk assessment performed?: Yes Alcohol Intake: current Alcohol Intake frequency: a few times a week Alcohol type: beer Drug use: Rarely Substance use type: marijuana Housing: apartment Do you feel safe at home: Yes Do you feel safe in your relationship?: Yes PAWSS Have you Been Recently Intoxicated or Drunk Within the Last 30 days?: No Have you Ever Experienced Previous Episodes of Alcohol Withdrawal?: No Have you ever Experienced Withdrawal Seizures?: No Have you ever Experienced Delirium Tremens(DT)s?: No Have you ever undergone Alcohol Rehabilitation Treatment (i.e, inpt ot outpatient treatment programs)?: No Have you ever Experienced Blackouts?: No Have you ever Combined Alcohol with other Downers within the last 90 days?: No Have you ever Combined Alcohol with any other Substance of Abuse during the last 90 days?: No Positive Blood Alcohol level on Presentation? [PCS.BAL]: No Evidence of Increased Autonomic Activity (i.e. HR>120, tremor, sweating, agitation, nausea)?: No Result: 0
--- NOTE | 2024-05-10 04:13 | NUR.NOTE ---
Pt transported to [facility] with transportation program director Clay Baugh assuming care of pt from Adelso Christensen RN in ED. Pt had uneventful transport, VS remained stable and no events en route. Transport sheet uploaded to chart. Questions asked and answered at [facility] [place] ICU.
--- NOTE | 2024-05-12 07:21 | NUR.NOTE ---
Access chart to determine EKG's in [employer] and EKG orders in [employer]. Duplicate order cancelled. Nursing Note:
== END 2024-05-10 00:53 | disposition short-term general hospital (02) ==
PROVIDERS: Emergency Provider Physician Assistant; PCP Physician Assistant
DX: L03.115 Cellulitis of right lower limb (principal); E11.69 Type 2 diabetes mellitus with other specified complication; E66.9 Obesity, unspecified; N17.9 Acute kidney failure, unspecified; A41.9 Sepsis, unspecified organism; E87.1 Hypo-osmolality and hyponatremia; R65.21 Severe sepsis with septic shock; R06.02 Shortness of breath
CPT/HCPCS: 00123; 36416; 51702; 71250; 80048; 80053; 82550; 82805; 82962; 84145; 85652; 87040; 87637; 93005; 93308; 94640; 96361; 96365; 96366; 96367; 96368; 96375; 99291; 71045; 73700; 74176; 81003; 81015; 82565; 83605; 83880; 84300; 85025; 86140; 87070; 87205; 93010; J0612; J0692; J1815; J2543; J2919; J3370; J7620

== ENCOUNTER 2024-05-28 15:32 | Outpatient (REF) | payer MEDICARE, SELFPAY ==
--- OUTSIDE RECORDS SUMMARY | 2024-05-28 15:42 | XMS_ITS | Data Portability ---
Author Organization [place] - [facility] Address [place] [address] Assessment Encounter Date Assessment Date Assessment LastModified by Organization Details LastModified Time 05/27/2024 05/27/2024 Unable to reach patient on the phone. No charge for visit. crystal Not available 05/27/2024 17:06:18 Plan of Treatment Reminders Order Date Submit Date Provider Last Modified By Organization Details Last Modified Time Details Appointments None record ed. Lab None record ed. Referral None record ed. Procedures None record ed. Surgeries None record ed. Imaging None record ed. Medication Orders None record ed. Patient TargetsNo targets recorded. Patient InstructionsNo instructions recorded. Reason for Referral None Reported. Results Created Date Observation Date Name Description Value Unit Range Abnormal Flag LastModifiedBy Organization Detail LastModifiedTime 05/09/20 24 2024 VENOU S BLOOD GAS pH (venous) 7.31 7.31-7 .41 normal Not Available [address] [place], [address] 2024 17:59:16 05/09/20 24 2024 VENOU S BLOOD GAS pCO2 (venous) 54 mmHg 41-51 high Not Available [address] [place], [address] 2024 17:59:16 05/09/20 24 2024 VENOU S BLOOD GAS pO2 (venous) 26 mmHg Not Available [address] [place], [address] 2024 17:59:16 05/09/20 24 2024 VENOU S BLOOD GAS TCO2 (venous) 25 mmol/ L 24-29 normal Not Available [address] [place], [address] 2024 17:59:16 05/09/20 24 2024 VENOU S BLOOD GAS HCO3 (venous) 27 mmol/ L 23-28 normal Not Available [address] [place], [address] 2024 17:59:16 05/09/20 24 2024 VENOU S BLOOD GAS BE (venous) 1 mmol/ L -2-3 normal Not Available [address] [place], [address] 2024 17:59:16 05/09/20 24 2024 VENOU S BLOOD GAS O2 sat (venous) 42 % Not Available [address] [place], [address] 2024 17:59:16 05/09/20 24 2024 LACTA TE lactate 2.2 mmol/ L 0.6-1. 4 panic high Not Available [address] [place], [address] 2024 18:00:16 05/09/20 24 2024 ESR ESR 60 mm/HR 0-20 high Not Available [address] [place], [address] 2024 18:04:16 05/09/20 24 2024 COMPL ETE BLOOD COUNT W/DIF F WBC 33.55 10_3/ uL 4.4-10 .8 panic high Not Available [address] [place], [address] 2024 18:21:18 05/09/20 24 2024 COMPL ETE BLOOD COUNT W/DIF F RBC 3.98 10_6/ uL 4.36-5 .78 low Not Available [address] [place], [address] 2024 18:21:18 05/09/20 24 2024 COMPL ETE BLOOD COUNT W/DIF F HGB 12.2 g/dL 13.5-1 7.5 low Not Available [address] [place], [address] 2024 18:21:18 05/09/20 24 2024 COMPL ETE BLOOD COUNT W/DIF F HCT 37.0 % 40.0-5 0.0 low Not Available [address] [place], [address] 2024 18:21:18 05/09/20 24 2024 COMPL ETE BLOOD COUNT W/DIF F MCV 93 fL 80-95 normal Not Available [address] [place], [address] 2024 18:21:18 05/09/20 24 2024 COMPL ETE BLOOD COUNT W/DIF F MCH 30.7 pg 27.0-3 3.0 normal Not Available [address] [place], [address] 2024 18:21:18 05/09/20 24 2024 COMPL ETE BLOOD COUNT W/DIF F MCHC 33.0 % 32.0-3 6.0 normal Not Available [address] [place], [address] 2024 18:21:18 05/09/20 24 2024 COMPL ETE BLOOD COUNT W/DIF F RDW 15.3 % 11.8-1 4.1 high Not Available [address] [place], [address] 2024 18:21:18 05/09/20 24 2024 COMPL ETE BLOOD COUNT W/DIF F platelet count 145 10_3/ uL 130-40 0 normal Not Available [address] [place], [address] 2024 18:21:18 05/09/20 24 2024 COMPL ETE BLOOD COUNT W/DIF F MPV 12.4 fL 8.0-11 .0 high Not Available [address] [place], [address] 2024 18:21:18 05/09/20 24 2024 COMPL ETE BLOOD COUNT W/DIF F neutrophils % 87.0 % Not Available [address] [place], [address] 2024 18:21:18 05/09/20 24 2024 COMPL ETE BLOOD COUNT W/DIF F bands % 2 % Not Available [address] [place], [address] 2024 18:21:18 05/09/20 24 2024 COMPL ETE BLOOD COUNT W/DIF F lymphocytes % 3.0 % Not Available [address] [place], [address] 2024 18:21:18 05/09/20 24 2024 COMPL ETE BLOOD COUNT W/DIF F monocytes % 8.0 % Not Available [address] [place], [address] 2024 18:21:18 05/09/20 24 2024 COMPL ETE BLOOD COUNT W/DIF F eosinophils % 0.0 % Not Available [address] [place], [address] 2024 18:21:18 05/09/20 24 2024 COMPL ETE BLOOD COUNT W/DIF F basophils % 0.0 % Not Available [address] [place], [address] 2024 18:21:18 05/09/20 24 2024 COMPL ETE BLOOD COUNT W/DIF F immature grans % 0.0 % Not Available [address] [place], [address] 2024 18:21:18 05/09/20 24 2024 COMPL ETE BLOOD COUNT W/DIF F nucleated RBC 0.0 % 0.0-0. 3 normal Not Available [address] [place], [address] 2024 18:21:18 05/09/20 24 2024 COMPL ETE BLOOD COUNT W/DIF F absolute neutrophil count 29.86 10_3/ uL 1.2-6. 7 high Not Available [address] [place], [address] 2024 18:21:18 05/09/20 24 2024 COMPL ETE BLOOD COUNT W/DIF F absolute lymphocyte count 1.01 10_3/ uL 1.2-3. 4 low Not Available [address] [place], [address] 2024 18:21:18 05/09/20 24 2024 COMPL ETE BLOOD COUNT W/DIF F absolute monocyte count 2.68 10_3/ uL 0.1-0. 8 high Not Available [address] [place], [address] 2024 18:21:18 05/09/20 24 2024 COMPL ETE BLOOD COUNT W/DIF F absolute eosinophil count 0.00 10_3/ uL 0.0-0. 7 normal Not Available [address] [place], [address] 2024 18:21:18 05/09/20 24 2024 COMPL ETE BLOOD COUNT W/DIF F absolute basophil count 0.00 10_3/ uL 0.0-0. 2 normal Not Available [address] [place], [address] 2024 18:21:18 05/09/20 24 2024 COMPL ETE BLOOD COUNT W/DIF F diff comment Manual Differ ential Not Available [address] [place], [address] 2024 18:21:18 05/09/20 24 2024 COMPL ETE BLOOD COUNT W/DIF F RBC morphology Normal Not Available [address] [place], [address] 2024 18:21:18 05/09/20 24 2024 COMPR EHENS CHARLES METAB OLIC PANEL calcium 9.1 mg/dL 8.5-10 .1 normal Not Available [address] [place], [address] 2024 18:25:19 05/09/20 24 2024 COMPR EHENS CHARLES METAB OLIC PANEL glucose 148 mg/dL 74-106 high Not Available [address] [place], [address] 2024 18:25:19 05/09/20 24 2024 COMPR EHENS CHARLES METAB OLIC PANEL BUN 75 mg/dL 7-18 high Not Available [address] [place], [address] 2024 18:25:19 05/09/20 24 2024 COMPR EHENS CHARLES METAB OLIC PANEL creatinine 4.7 mg/dL 0.70-1 .30 panic high Not Available [address] [place], [address] 2024 18:25:19 05/09/20 24 2024 COMPR EHENS CHARLES METAB OLIC PANEL estimated GFR 12.64 mL/min /1.73m 2 Not Available [address] [place], [address] 2024 18:25:19 05/09/20 24 2024 COMPR EHENS CHARLES METAB OLIC PANEL total protein 8.3 g/dL 6.4-8. 2 high Not Available [address] [place], [address] 2024 18:25:19 05/09/20 24 2024 COMPR EHENS CHARLES METAB OLIC PANEL albumin 2.9 g/dL 3.4-5. 0 low Not Available [address] [place], [address] 2024 18:25:19 05/09/20 24 2024 COMPR EHENS CHARLES METAB OLIC PANEL bilirubin, total 0.73 mg/dL 0.2-1. 0 normal Not Available [address] [place], [address] 2024 18:25:19 05/09/20 24 2024 COMPR EHENS CHARLES METAB OLIC PANEL alk phos 38 U/L 46-116 low Not Available [address] [place], [address] 2024 18:25:19 05/09/20 24 2024 COMPR EHENS CHARLES METAB OLIC PANEL sodium 130 mmol/ L 136-14 5 low Not Available [address] [place], [address] 2024 18:25:19 05/09/20 24 2024 COMPR EHENS CHARLES METAB OLIC PANEL potassium 5.4 mmol/ L 3.5-5. 1 high Not Available [address] [place], [address] 2024 18:25:19 05/09/20 24 2024 COMPR EHENS CHARLES METAB OLIC PANEL chloride 93 mmol/ L 98-107 low Not Available [address] [place], [address] 2024 18:25:19 05/09/20 24 2024 COMPR EHENS CHARLES METAB OLIC PANEL CO2 27.8 mmol/ L 21.0-3 2.0 normal Not Available [address] [place], [address] 2024 18:25:19 05/09/20 24 2024 COMPR EHENS CHARLES METAB OLIC PANEL anion gap 9.2 mmol/ L 3-11 normal Not Available [address] [place], [address] 2024 18:25:19 05/09/20 24 2024 COMPR EHENS CHARLES METAB OLIC PANEL AST 15 U/L 15-37 normal Not Available [address] [place], [address] 2024 18:25:19 05/09/20 24 2024 COMPR EHENS CHARLES METAB OLIC PANEL ALT 25 U/L 16-63 normal Not Available Jory morales [address] [place], [address] 2024 18:25:19 05/09/20 24 2024 NT-FL OBNP nt-probnp 6988 pg/mL <300 high Not Available Jory morales [address] [place], [address] 2024 18:25:19 05/09/20 24 2024 C-LIZZ CTIVE PROTE IN C-reactive protein > 25.00 mg/dL <or=0. 5 high Not Available [address] [place], [address] 2024 18:28:19 05/09/20 24 2024 LACTA TE lactate 2.2 mmol/ L 0.6-1. 4 panic high Not Available [address] [place], [address] 2024 18:30:22 05/09/20 24 2024 PROCA LCITO TI procalcitoni n 57.0 NG/mL Not Available [address] [place], [address] 2024 18:30:23 05/09/20 24 2024 COVID /FLU/ RSV PCR source Nasoph arynx Not Available [address] [place], [address] 2024 18:47:21 05/09/20 24 2024 COVID /FLU/ RSV PCR covid-19 PCR Negati ve negati ve Not Available [address] [place], [address] 2024 18:47:21 05/09/20 24 2024 COVID /FLU/ RSV PCR influenza A PCR Negati ve negati ve Not Available [address] [place], [address] 2024 18:47:21 05/09/20 24 2024 COVID /FLU/ RSV PCR influenza B PCR Negati ve negati ve Not Available [address] [place], [address] 2024 18:47:21 05/09/20 24 2024 COVID /FLU/ RSV PCR RSV PCR Negati ve negati ve Not Available [address] [place], [address] 2024 18:47:21 05/09/20 24 2024 CREAT INE KINAS E creatine kinase 65 U/L 39-308 normal Not Available [address] [place], [address] 2024 19:15:25 05/09/20 24 2024 LACTA TE lactate 1.5 mmol/ L 0.6-1. 4 high Not Available [address] [place], [address] 2024 20:23:38 05/09/20 24 2024 URINA LYSIS color Dark Yellow yellow Not Available [address] [place], [address] 2024 20:38:39 05/09/20 24 2024 URINA LYSIS clarity Clear clear Not Available [facility] [address] [place], [address] 2024 20:38:39 05/09/20 24 2024 URINA LYSIS specific gravity 1.020 1.005- 1.025 normal Not Available [address] [place], [address] 2024 20:38:39 05/09/20 24 2024 URINA LYSIS pH 5.0 5-8 normal Not Available [facility] [address] [place], [address] 2024 20:38:39 05/09/20 24 2024 URINA LYSIS leukocyte esterase Negati ve negati ve Not Available [address] [place], [address] 2024 20:38:39 05/09/20 24 2024 URINA LYSIS nitrite Negati ve negati ve Not Available [address] [place], [address] 2024 20:38:39 05/09/20 24 2024 URINA LYSIS protein 30 mg/dL neg-tr derek abnormal Not Available [address] [place], [address] 2024 20:38:39 05/09/20 24 2024 URINA LYSIS glucose Negati ve mg/dL negati ve Not Available [address] [place], [address] 2024 20:38:39 05/09/20 24 2024 URINA LYSIS ketones Negati ve mg/dL negati ve Not Available [address] [place], [address] 2024 20:38:39 05/09/20 24 2024 URINA LYSIS urobilinogen 0.2 mg/dL up to 0.2 Not Available [address] [place], [address] 2024 20:38:39 05/09/20 24 2024 URINA LYSIS bilirubin Small negati ve abnormal Not Available [address] [place], [address] 2024 20:38:39 05/09/20 24 2024 URINA LYSIS blood Trace- lysed negati ve abnormal Not Available [address] [place], [address] 2024 20:38:39 05/09/20 24 2024 BASIC METAB OLIC PANEL calcium 8.4 mg/dL 8.5-10 .1 low Not Available [address] [place], [address] 2024 20:43:40 05/09/20 24 2024 BASIC METAB OLIC PANEL glucose 142 mg/dL 74-106 high Not Available [address] [place], [address] 2024 20:43:40 05/09/20 24 2024 BASIC METAB OLIC PANEL BUN 74 mg/dL 7-18 high Not Available [address] [place], [address] 2024 20:43:40 05/09/20 24 2024 BASIC METAB OLIC PANEL creatinine 4.7 mg/dL 0.70-1 .30 panic high Not Available [address] [place], [address] 2024 20:43:40 05/09/20 24 2024 BASIC METAB OLIC PANEL estimated GFR 12.64 mL/min /1.73m 2 Not Available [address] [place], [address] 2024 20:43:40 05/09/20 24 2024 BASIC METAB OLIC PANEL sodium 130 mmol/ L 136-14 5 low Not Available [address] [place], [address] 2024 20:43:40 05/09/20 24 2024 BASIC METAB OLIC PANEL potassium 5.8 mmol/ L 3.5-5. 1 high Not Available [address] [place], [address] 2024 20:43:40 05/09/20 24 2024 BASIC METAB OLIC PANEL chloride 94 mmol/ L 98-107 low Not Available [address] [place], [address] 2024 20:43:40 05/09/20 24 2024 BASIC METAB OLIC PANEL CO2 27.6 mmol/ L 21.0-3 2.0 normal Not Available [address] [place], [address] 2024 20:43:40 05/09/20 24 2024 BASIC METAB OLIC PANEL anion gap 8.4 mmol/ L 3-11 normal Not Available [address] [place], [address] 2024 20:43:40 05/09/20 24 2024 URINA LYSIS color Dark Yellow yellow Not Available [address] [place], [address] 2024 20:49:42 05/09/20 24 2024 URINA LYSIS clarity Clear clear Not Available Jory morales [address] [place], [address] 2024 20:49:42 05/09/20 24 2024 URINA LYSIS specific gravity 1.020 1.005- 1.025 normal Not Available [address] [place], [address] 2024 20:49:42 05/09/20 24 2024 URINA LYSIS pH 5.0 5-8 normal Not Available Jory morales [address] [place], [address] 2024 20:49:42 05/09/20 24 2024 URINA LYSIS leukocyte esterase Negati ve negati ve Not Available [address] [place], [address] 2024 20:49:42 05/09/20 24 2024 URINA LYSIS nitrite Negati ve negati ve Not Available [address] [place], [address] 2024 20:49:42 05/09/20 24 2024 URINA LYSIS protein 30 mg/dL neg-tr derek abnormal Not Available [address] [place], [address] 2024 20:49:42 05/09/20 24 2024 URINA LYSIS glucose Negati ve mg/dL negati ve Not Available [address] [place], [address] 2024 20:49:42 05/09/20 24 2024 URINA LYSIS ketones Negati ve mg/dL negati ve Not Available [address] [place], [address] 2024 20:49:42 05/09/20 24 2024 URINA LYSIS urobilinogen 0.2 mg/dL up to 0.2 Not Available [address] [place], [address] 2024 20:49:42 05/09/20 24 2024 URINA LYSIS bilirubin Small negati ve abnormal Not Available [address] [place], [address] 2024 20:49:42 05/09/20 24 2024 URINA LYSIS blood Trace- lysed negati ve abnormal Not Available [address] [place], [address] 2024 20:49:42 05/09/20 24 2024 MICRO SCOPI C FINDI NGS WBC 0-2 hpf 0-5 Not Available [address] [place], [address] 2024 20:49:42 05/09/20 24 2024 MICRO SCOPI C FINDI NGS RBC 3-5 hpf 0-2 abnormal Not Available [address] [place], [address] 2024 20:49:42 05/09/20 24 2024 MICRO SCOPI C FINDI NGS epithelial cells Few hpf negati ve Not Available [address] [place], [address] 2024 20:49:42 05/09/20 24 2024 MICRO SCOPI C FINDI NGS bacteria Negati ve hpf negati ve Not Available [address] [place], [address] 2024 20:49:42 05/09/20 24 2024 MICRO SCOPI C FINDI NGS crystals Negati ve hpf negati ve Not Available [address] [place], [address] 2024 20:49:42 05/09/20 24 2024 MICRO SCOPI C FINDI NGS mucus Trace negati ve Not Available [address] [place], [address] 2024 20:49:42 05/09/20 24 2024 MICRO SCOPI C FINDI NGS C S indicated? No Not Available [address] [place], [address] 2024 20:49:42 05/09/20 24 2024 CREAT ININE ,URIN E creatinine,u rine 178.13 mg/dL Not Available [address] [place], [address] 2024 21:01:41 05/09/20 24 2024 SODIU M, URINE sodium, urine 34 mmol/ L Not Available [address] [place], [address] 2024 21:01:41 05/09/20 24 2024 GRAM STAIN gram stain Not Available [address] [place], [address] 2024 21:19:42 05/09/2005/12/2024 WOUND AEROB IC CULTU RE wound aerobic culture Not Available [address] [place], [address] 05/12/2024 10:07:33 05/09/20 24 05/10/2024 BLOOD CULTU RE ( AGE => 9 YRS) blood culture ( age => 9 yrs) Not Available [address] [place], [address] 05/10/2024 19:54:31 05/09/20 24 05/10/2024 BLOOD CULTU RE ( AGE => 9 YRS) blood culture ( age => 9 yrs) Not Available [address] [place], [address] 05/10/2024 20:03:33 05/09/20 24 05/11/2024 BLOOD CULTU RE ( AGE => 9 YRS) blood culture ( age => 9 yrs) Not Available [address] [place], [address] 05/11/2024 19:55:07 05/09/2005/11/2024 BLOOD CULTU RE ( AGE => 9 YRS) blood culture ( age => 9 yrs) Not Available [address] [place], [address] 05/11/2024 20:04:08 05/09/20 24 05/12/2024 BLOOD CULTU RE ( AGE => 9 YRS) blood culture ( age => 9 yrs) Not Available [address] [place], [address] 05/12/2024 19:54:51 05/09/2005/12/2024 BLOOD CULTU RE ( AGE => 9 YRS) blood culture ( age => 9 yrs) Not Available [address] [place], [address] 05/12/2024 20:04:53 05/09/20 24 05/13/2024 BLOOD CULTU RE ( AGE => 9 YRS) blood culture ( age => 9 yrs) Not Available [address] [place], [address] 05/13/2024 19:54:00 05/09/20 24 05/13/2024 BLOOD CULTU RE ( AGE => 9 YRS) blood culture ( age => 9 yrs) Not Available [address] [place], [address] 05/13/2024 20:04:00 05/09/20 24 05/14/2024 BLOOD CULTU RE ( AGE => 9 YRS) blood culture ( age => 9 yrs) Not Available [address] [place], [address] 05/14/2024 19:54:56 05/09/20 24 05/14/2024 BLOOD CULTU RE ( AGE => 9 YRS) blood culture ( age => 9 yrs) Not Available [address] [place], [address] 05/14/2024 20:40:58 05/09/20 24 2024 x-ray imagi ng repor t Kisha santiago Name: Jossy Leyva Unit #: [id number] Loc: ER Orderi ng Provid er: Yelena Henley Marcia santiago #: [id number] Status : PRE ER Primar y Care Provid er: Rishi on,Chanda wallis Date of Exam: Sex: M Admiss ion Date: : 1954 Age: 69 Exam(s ) XR PORTAB LE CHEST AP EXAM: XR PORTAB LE CHEST AP CLINIC AL HISTOR Y: shortn ess of breath . TECHNI QUE: 2D digita l imagin g was perfor med. COMPAR TABITHA: CR,XR XR CHEST 2V PA LATERA L from 2019 FINDIN GS: Single AP portab le view. Heart size is upper normal . The medias tinum is not widene d. Left lung is clear. Increa sed densit y over the right noted but appear s to be relate d to overla pping scapul ar shadow . No obviou s air bronch ograms . IMPRES YOANDY: No obviou s acute pulmon sukhdeep findin gs on this single AP portab le view of the chest. Recomm end nonpor table PA and latera l views when clinic ally DATA REPOSI TORY: RADIAT ION DOSE DELIVE RED: Ordere d By: Yelena Henley CC: ------ ------ ------ ------ ------ ------ ------ ------ ------ ------ ------ ------ - Dictat ed By: Anand Caballero M.D. 1810 Transc ribed By: Ada SOTOMAYOR,Tolu osnu 1810 This is privil eged, confid ential inform ation intend ed only for the provid er named. Any use or distri bution by any person other than this provid er is strict ly prohib ited. If you receiv e this report in error, please notify us immedi ately at and return the origin al report to us at the addres s above. Thank- you. crystal [facility] [address] [facility] [place], [address] 05/12/2024 08:01:30 05/09/20 24 2024 vrad repor t Patien t Name: Jossy Leyva Unit #: [id number] Loc: ER Orderi ng Provid er: Accoun t #: [id number] Status : REG ER Primar y Care Provid er: Rishi on,Chanda bimal Date of Exam: Sex: M : 1954 Age: 69 Exam(s ) PROCED URE INFORM ATION: Exam: CT Chest Withou t Contra st; Diagno stic Exam date and time: 024 7:36 PM Age: 69 years old Clinic al indica tion: Renal failur e, sepsis TECHNI QUE: Imagin g protoc ol: Diagno stic comput ed tomogr aphy of the chest withou t contra st. 3D render ing (Not superv ised by radiol ogist) : MIP and/or 3D recons tructe d images were create d by the techno logist . Radiat ion optimi zation : All CT scans at this facili ty use at least one of these dose optimi zation techni ques: automa sebastián exposu re contro l; mA and/or kV adjust ment per patien t size (inclu ellyn target ed exams where dose is matche d to clinic al indica tion); or iterat charles recons tructi on. COMPAR TABITHA: CR XR PORTAB LE CHEST AP 024 6:05 PM FINDIN GS: Lungs: No acute alveol ar or groun d glass infilt rate. Inferi or lingul ar linear parenc hymal scarri ng or subseg mental collap se / atelec tasis. Pleura l spaces : No pleura l fluid collec tion. No pneumo thorax . Heart: No perica rdial effusi on. Villanueva ry artery calcif icatio n. Heart size at the upper limits of normal . Lymph nodes: No enlarg ed lymph nodes. Vascul ature: Normal calibe r thorac ic aorta withou t aneury sm. Append ix: Normal append ix. Bones/ joints : Old right- sided rib fractu res. Spinal degene rative change s. Soft tissue s: Mild gyneco mastia . IMPRES YOANDY: No acute pulmon sukhdeep infilt rate or pleura l fluid collec tion. ====== ====== ====== ====== = PROCED URE INFORM ATION: Exam: CT Abdome n And Pelvis With t Contra st Exam date and time: 024 7:36 PM Age: 69 years old Mild lumbar dextro scolio sis. TECHNI QUE: Imagin g protoc ol: Comput ed tomogr aphy of the abdome n and pelvis with t contra . 3D render ing (Not superv ised by radiol ogist) : MIP and/or 3D recons tructe d images were create d by the techno logist . Radiat ion optimi zation : All CT scans at this facili ty use at least one of these dose optimi zation techni ques: automa sebastián exposu re contro l; mA and/or kV adjust ment per patien t size (inclu ellyn target ed exams where dose is matche d to clinic al indica tion); or iterat charles recons tructi on. COMPAR TABITHA: US RENAL 020 9:38 AM FINDIN GS: Liver: Normal . No mass. Gallbl adder and biliar y ducts: Normal . No calcif ied stones . No ductal dilati on. Pancre as: Normal . No ductal dilati on. Spleen : Normal . No spleno megaly . Adrena l glands : Normal . No mass. Kidney s and ureter s: No hydron ephros is. No calcif ied renal or ureter al stones . No perine phric strand ing or perine phric fluid. Stomac h and bowel: Unrema rkable . No obstru ction. No mucosa l thicke reji. Append ix: No eviden ce of append icitis . Intrap eriton eal space: No free air. No signif icant fluid collec tion. Vascul ature: The abdomi nal aorta is normal in calibe r withou t aneury sm. Scatte red arteri al calcif icatio ns. Lymph nodes: No enlarg ed lymph nodes. Urinar y bladde r: Godinez cathet er within decomp ressed urinar y bladde r. Reprod uctive : Unrema rkable as visual ized. Bones/ joints : Spinal degene rative change s. Soft tissue s: Small fat-co ntaini ng inguin al hernia s. IMPRES YOANDY: No acute intra- abdomi nal or pelvic proces s. Dictat ed and Authen ticate d by: Andrew donws MD. Orderi ng:Pamela Castillo MD Access ion#=[id number] Ordere d By: CC: ------ ------ ------ ------ ------ ------ ------ ------ ------ ------ ------ ------ ---- Dictat ed By: Report s vrad 1935 Transc ribed By: Di Merge 1935 This is privil eged, confid ential inform ation intend ed only for the provid er named. Any use or distri bution by any person other than this provid er is strict ly prohib ited. If you receiv e this report in error, please notify us immedi ately at and return the origin al report to us at the addres s above. Thank- you. crystal [facility] [address] [place], [address] 05/12/2024 08:01:30 05/09/20 24 2024 vrad danielle santiago Name: Jossy Leyva Unit #: [id number] Loc: ER Orderi ng Provid er: Accoun t #: [id number] Status : REG ER Primar y Care Provid er: Rishi on,Pat bimal Date of Exam: Sex: M : 1954 Age: 69 Exam(s ) PROCED URE INFORM ATION: Exam: CT Right Lower Extrem ity Withou t Contra st Exam date and time: 024 7:41 PM Age: 69 years old Clinic al indica tion: Right foot cellul itis, toe injury , diabet ic TECHNI QUE: Imagin g protoc ol: CT of the right lower extrem ity withou t contra st was perfor med. Radiat ion optimi zation : [facility] use at least one of these dose optimi zation techni ques: automa sebastián exposu re contro l; mA and/or kV adjust ment per patien t size (inclu ellyn target ed exams where dose is matche d to clinic al indica tion); or iterat charles recons tructi on. COMPAR TABITHA: US EXTREM ITY VENOUS BI 020 9:45 AM FINDIN GS: Bones/ joints : No acute fractu re. No disloc ation. No CT eviden ce of osteom yeliti s. Soft tissue s: Right knee, right tib-fi b, right ankle, and right foot region soft tissue edema / cellul itis. No discre te soft tissue absces s. Soft tissue irregu larity involv ing the distal right 2nd toe. Vascul ature: Scatte red arteri al calcif icatio ns. IMPRES YOANDY: 1. Right knee, right tib-fi b, right ankle, and right foot region soft tissue edema / cellul itis. 2. No discre te soft tissue absces s. 3. Soft tissue irregu larity involv ing the distal right 2nd toe. 4. No CT eviden ce of osteom yeliti s. Dictat ed and Ying lester d by: Andrew downs MD. Orderi ng:Pamela Castillo MD Access ion#=[id number] Ordere d By: CC: ------ ------ ------ ------ ------ ------ ------ ------ ------ ------ ------ ------ ---- Dictat ed By: Report s vrad 1940 Transc ribed By: eJanine Merge 1940 This is privil eged, confid ential inform ation intend ed only for the provid er named. Any use or distri bution by any person other than this provid er is strict ly prohib ited. If you receiv e this report in error, please notify us immedi ately at and return the origin al report to us at the addres s above. Thank- you. crystal [facility] [address], [place], [address] 05/12/2024 08:01:30 05/10/20 24 05/10/2024 CT imagi ng repor t Kisha t Name: Jossy Leyva Unit #: [id number] Loc: ER Orderi ng Provid er: Yelena Henley Accoun t #: [id number] Status : DEP ER Primar y Care Provid er: Rishi on,Chanda wallis Date of Exam: Sex: M : 1954 Age: 69 Exam(s ) a CT:CT lower extrem ity RT wo Exam(s ) CT LOWER EXTREM ITY RT WO EXAM: CT LOWER EXTREM ITY RT WO CLINIC AL HISTOR Y: cellul itis, toe injury . TECHNI QUE: Imagin g Protoc ol: Axial comput ed tomogr aphy images with villanueva l and sagitt al reform atted images were create d and review ed. COMPAR TABITHA: No exams were availa ble for compar tabitha FINDIN GS: Bones: The osseou s struct ures and articu lar surfac es are intact . Bony alignm ent is satisf actory . No cellul itic or osteom yeliti c change s are identi fied. No lytic or sclero tic lesion s are identi fied. Soft Tissue s: There is edema seen in the soft tissue s of the lower extrem ity and foot with skin thicke reji partic ularly seen in the lower extrem ity. This can be seen with cellul itis. No focal fluid collec tion is seen to sugges t an absces s. There is soft tissue deform ity at the tip of the right 2nd toe which may repres ent a lacera tion or ulcera tion. Please correl ate clinic ally. No radiop aque foreig n body is seen. IMPRES YOANDY: 1. Edema seen in the soft tissue s of the lower extrem ity with skin thicke reji. This may repres ent cellul itis. No focal absces s is identi fied. 2. Lacera tion or ulcera tion involv ing the distal aspect of the right 2nd toe. No radiop aque foreig n body. 3. No findin gs to sugges t osteom yeliti s. RADIAT ION DOSE DELIVE RED: Total DLP Total DLP DATA REPOSI TORY: All CT scans at this facili ty are submit sebastián to the [facility] Radiol ogy Data Regist ry (NRDR) Dose Index Regist ry (DIR) with the [place] mark [place] of Radiol ogy (ACR). RADIAT ION OPTIMI ZATION : All CT scans at this facili ty use at least one of these dose optimi zation techni ques: automa sebastián exposu re contro l; mA and/or kV adjust ment per patien t size (inclu ellyn target ed exams where dose is matche d to clinic al indica tion); or iterat charles recons tructi on. 033: Total DLP = 0.00 mGy-cm Ordere d By: Timothy blake,Yelena MIMS CC: ------ ------ ------ ------ ------ ------ ------ ------ ------ ------ ------ ------ ---- Dictat ed By: Moiz Sotelo M.D. 1039 1039 Transc ribed By: Moiz Sotelo 1039 This is privil eged, confid ential inform ation intend ed only for the provid er named. Any use or distri bution by any person other than this provid er is strict ly prohib ited. If you receiv e this report in error, please notify us immeddayron richards at [phone] and return the origin al report to us at the addres s above. Thank- you. [email or web address] [facility] [address], [place], [address] 05/12/2024 08:01:31 05/11/20 24 05/11/2024 CT imagi ng repor t Patien t Name: Jossy Leyva Unit #: [id number] Loc: ER Orderi ng Provid er: Timothy rs,Yelena n PRASANNA Accoun t #: [id number] Status : DEP ER Primar y Care Provid er: Rishi on,Pat bimal Date of Exam: Sex: M : 1954 Age: 69 Exam(s ) a CT:CT chest/ abd/pe l wo Exam(s ) CT CHEST/ ABD/PE L WO EXAM: CT CHEST/ ABD/PE L WO CLINIC AL HISTOR Y: renal failur e, sepsis TECHNI QUE: Imagin g Protoc ol: Axial comput ed tomogr aphy images with villanueva l and sagitt al reform atted images were create d and review ed COMPAR TABITHA: CR XR PORTAB LE CHEST AP from 2023 FINDIN GS: The examin ation is limite d due to patien t motion artifa ct. CHEST: Trache obronc hial tree: Patent where visual ized. Pulmon sukhdeep parenc hyma: No consol idatio n or domina nt measur able mass. No wilton ectura l distor tion. Atelec tasis or scarri ng is seen in the lung bases. Medias tinum and Tigist: No domina nt adenop athy or fluid collec tion. The esopha cristina is unrema rkable . Thyroi d gland: Unrema rkable . Pleura : No effusi on or pneumo thorax . Heart: Cardio megaly . Villanueva ry artery calcif icatio ns are presen t. No perica rdial effusi on. Aorta: Thorac ic aorta non-di lated. Athero sclero tic calcif icatio n is presen t. Lymph nodes: Within normal limits . Bones: Within normal limits for the patien t's age. Old healed right rib fractu res are seen. Soft tissue s: Unrema rkable . ABDOME N: Liver: Normal densit y. No measur able mass. Gallbl adder and Biliar y Tract: No radiod ense calcul us or dilati on. Pancre as: Normal densit y, no abnorm al calcif icatio ns or inflam matory proces s. Spleen : Normal . Adrena ls: No masses seen. Kidney s: Normal size, contou r and axis. No radiod ense stones or obstru ctive uropat hy. There is a cyst in the superi or pole of the right kidney . No follow -up is recomm ended. Abdomi nal Aorta: Abdomi nal portio n non-di lated. Athero sclero tic calcif icatio n is presen t. Bowel: There are few scatte red divert icula in the colon but no eviden ce of acute divert iculit is. No eviden ce of bowel obstru ction or bowel wall thicke reji. No eviden ce of append icitis . Perito live Cavity : No ascite s, collec tion or mesent dean inflam matory respon se. No free air. Lymph Nodes: Within normal limits . Bones: Within normal limits for the patien t's age. Soft Tissue s: Small fat contai reji bilate ral inguin al hernia s. PELVIS : Bladde r: The urinar y bladde r is decomp ressed . There is a Godinez cathet er in place. There is a small amount of air within the urinar y bladde r likely reflec ting the cathet er placem ent. Reprod uctive Organs : Unrema rkable as visual ized. Lymph Nodes: Within normal limits . Bones: Within normal limits for the patien t's age. IMPRES YOANDY: 1. No acute pulmon sukhdeep proces s. 2. No acute abdomi nal or pelvic proces s. RADIAT ION DOSE DELIVE RED: Total DLP Total DLP DATA REPOSI TORY: All CT scans at this facili ty are submit sebastián to the Nation al Radiol ogy Data Regist ry (NRDR) Dose Index Regist ry (DIR) with the [place]man of Radiol ogy (ACR). RADIAT ION OPTIMI ZATION : All CT scans at this facili ty use at least one of these dose optimi zation techni ques: automa sebastián exposu re contro l; mA and/or kV adjust ment per patien t size (inclu ellyn target ed exams where dose is matche d to clinic al indica tion); or iterat charles recons tructi on. 032: Total DLP = 0.00 mGy-cm Ordere d By: Timothy blake,Yelena MIMS CC: ------ ------ ------ ------ ------ ------ ------ ------ ------ ------ ------ ------ ---- Dictat ed By: Moiz Sotelo M.D. 912 Transc ribed By: Moiz Stoelo 912 This is privil eged, confid ential inform ation intend ed only for the provid er named. Any use or distri bution by any person other than this [facility] er is strict ly prohib ited. If you receiv e this report in error, please notify us immedi ately at [phone] and return the origin al report to us at the addres s above. Thank- you. crystal [facility] [address] [place], [address] 05/12/2024 08:01:31 Result Notes None recorded. Problems Name Status Onset Date Resolution Date Notes Provider Name and Address Organization Details Recorded Time Chronic obstructive pulmonary disease Active 201912/14/2021 - Comments only - Pepe Bill RPA - lungs clear on exam. nonlabored. He stopped smoking greater than 10 years ago. Problem Code: J44.9; Problem Code Type: ICD-10; Not Available [facility] 3 05:06:14 Atrial fibrillation Active 201911/27/2022 - Comments only - Pepe Bill RPA - Continues to be rate controlled. Continues on Xarelto. We will check a CBC. Problem Code: I48.91; Problem Code Type: ICD-10; Not Available [facility] 3 05:06:14 Essential hypertension Active 201911/27/2022 - Comments only - Pepe Bill RPA - Well controlled on current medication management. Problem Code: I10; Problem Code Type: ICD-10; Not Available [facility] 3 05:06:14 Type 2 diabetes mellitus without complication Active 201903/15/2022 - Comments only - Pepe Bill RPA - Significant improvement in hemoglobin A1c. From over 13 3 months ago to 6.9 today. He feels hypoglycemic when his blood sugars get into the 90s. His short acting insulin has been lowered to 8 units prior to meals. Continues with Lantus and Trulicity. We will likely switch him to Victoza due to cost. Problem Code: E11.9; Problem Code Type: ICD-10; Not Available [facility] 3 05:06:14 Heart failure Active 201911/27/2022 - Comments only - Pepe Bill RPA - Appears stable on current medication management. No significant changes in lower extremity edema. If anything a bit improved. He continues on carvedilol and furosemide. Encouraged more routine exercise. Problem Code: I50.9; Problem Code Type: ICD-10; Not Available [facility] 3 05:06:14 Peripheral vascular disease Active 2019 Problem Code: I73.9; Problem Code Type: ICD-10; Not Available [facility] 3 05:06:14 Screening for malignant neoplasm of prostate Active 201907/26/2020 - Comments only - Pepe Bill RPA - We will check a PSA Problem Code: Z12.5; Problem Code Type: ICD-10; Not Available [facility] 3 05:06:14 Dystrophia unguium Active 201909/06/2020 - Comments only - Pepe Bill RPA - Referral has been made to podiatry. He has not heard on this referral yet Problem Code: L60.3; Problem Code Type: ICD-10; Not Available [facility] 3 05:06:15 Pain in thoracic spine Active 201908/19/2020 - Comments only - Pepe Bill RPA - herniated disk 1997. 2016 MRI with L5-S1 spinal stenosis - subsequent steroid injection and ablation. Problem Code: M54.9; Problem Code Type: ICD-10; Not Available [facility] 3 05:06:15 Edema Active 201912/14/2021 - Comments only - Pepe Bill RPA - improved from a year ago. He restricts sodium. Compliant with his cardiac meds. No evidence of cellulitis which has been a significant issue in past. Problem Code: R60.9; Problem Code Type: ICD-10; Not Available [facility] 3 05:06:15 Malaise Active 202101/11/2022 - Improved - Shaila Stallworth - He feels that he is getting stronger and making good progress with physical therapy. I advised that I would like to keep this therapy going for at least another several weeks and he is agreeable. I believe that his shortness of breath with activity will continue to improve as he becomes better conditioned and he agrees that this has already improved. Problem Code: R53.81; Problem Code Type: ICD-10; Not Available [facility] 3 05:06:15 Tinnitus Active 202101/11/2022 - Comments only - Shaila Stallworth - He has been taking an over the counter supplement which he believes has been helping to reduce the ringing in his ears, but the supplement is expensive and he is looking for a prescription to ameliorate the cost. I advised that if he calls with the name of the supplement next time he sees it at the store then we can see if it's something we are able to prescribe. Problem Code: H93.19; Problem Code Type: ICD-10; Not Available [facility] 3 05:06:15 Carpal tunnel syndrome of right wrist Active 202212/21/2022 - Comments only - Pepe Bill RPA - confirmed on emg's Problem Code: G56.01; Problem Code Type: ICD-10; Not Available [facility] 3 05:06:15 Cellulitis Completed 201901/11/2022 Problem Code: L03.90; Problem Code Type: ICD-10; Not Available [facility] 3 05:06:37 Problem Notes None recorded. Procedures Surgical History None recorded. Imaging Results Imaging Date Name Status LastModified by Organiz [facility] Details LastModified Time 2024 x-ray imaging report completed [id number] [place], [address] 05/12/2024 08:01:30 2024 vrad report completed [id number] [place], [address] 05/12/2024 08:01:30 2024 vrad report completed [id number] [place], [address] 05/12/2024 08:01:30 05/10/2024 CT imaging report completed [address] [place], [address] 05/12/2024 08:01:31 05/11/2024 CT imaging report completed [id number] [place], [address] 05/12/2024 08:01:31 Procedure Notes None recorded. Medical Equipment None Reported. Medications Name Sig Start Date Stop Date Status Note LastModified by Organization Details LastModified Time furosemide 40 mg tablet TAKE ONE TABLET BY MOUTH TWICE A DAY active Not Available Not Available No t Available atorvastati n 40 mg tablet TAKE ONE TABLET BY MOUTH EVERY DAY active Not Available Not Available No t Available carvedilol 25 mg tablet TAKE ONE TABLET BY MOUTH TWICE A DAY active Not Available Not Available No t Available metoprolol tartrate 100 mg tablet Take 2 tabs by mouth twice daily 08/04 completed Not Available Not Available Not Available ibuprofen 200 mg capsule 2 tabs po every 6 hours as needed 2019 active Not Available Not Available Not Avai lable clindamycin HCl 150 mg capsule Take 1 cap by mouth three times daily X 10 days 11/09 completed Not Available Not Available Not Available diltiazem ER 240 mg capsule,24 hr,extended release TAKE ONE CAPSULE BY MOUTH EVERY DAY active Not Available Not Available No t Available OneTouch Ultra Test strips TEST THREE TIMES A DAY 2023 active Not Available Not Available Not Avai lable Magnesium-O xide 400 mg tablet Take 1 tab by mouth twice daily 2019 active Not Available Not Available Not Avai lable ammonium lactate 12 % topical cream Apply in eye once a day 12/14 completed Not Available Not Available Not Available lisinopril 5 mg tablet TAKE ONE TABLET BY MOUTH EVERY DAY active Not Available Not Available No t Available OneTouch UltraSoft Lancets Use 1 lancet as directed three times a day 2021 active Not Available Not Available Not Avai lable Multivital 1 tablet once a day 2019 active Not Available Not Available Not Avai lable Lantus Solostar U-100 Insulin 100 unit/mL (3 mL) subcutaneou s pen INJECT 20 UNITS UNDER THE SKIN EVERY NIGHT active Not Available Not Available No t Available Humalog KwikPen (U-100) Insulin 100 unit/mL subcutaneou s INJECT 8 UNITS BEFORE EACH MEAL active Not Available Not Available No t Available Xarelto 15 mg tablet TAKE ONE TABLET BY MOUTH EVERY DAY active Not Available Not Available No t Available Victoza 3-Christo 0.6 mg/0.1 mL (18 mg/3 mL) subcutaneou s pen injector Inject 1.2 mg subcutane ously every day active Not Available Not Available No t Available Trulicity 1.5 mg/0.5 mL subcutaneou s pen injector Inject 1/2 ml subcutane ously once a week 09/22 completed Not Available Not Available Not Available Trulicity 0.75 mg/0.5 mL subcutaneou s pen injector Inject 1/2 ml subcutane ously once a week 01/11 completed Not Available Not Available Not Available BD Deneen 2nd Gen Pen Needle 32 gauge x 5/32 USE 1 NEEDLE UNDER THE SKIN FOUR TIMES A DAY active Not Available Not Available No t Available Vitals None Recorded Social History None recorded. Functional Status None recorded. Mental Status None recorded. Family History Relationship Description Onset Age of this Age Resolved Age Notes Notes:*Problem: father decea sed etoh, diverticulitis, cad mother a-fib Medical History No medical history recorded. Immunizations Vaccine Type Date Status Provider Name and Address Organization Details Recorded Time pneumococcal, unspecified formulation 07/17/2020 completed Not Available [facility] 08/24/2023 05:17:59 Tdap 11/27/2022 completed Not Available [facility] 05:17:59 Influenza, high-dose, quadrivalent, PF 11/27/2022 completed Not Available [facility] 08/24/2023 05:18:00 COVID-19, mRNA, LNP-S, PF, 100 mcg/0.5mL dose or 50 mcg/0.25mL dose 12/10/2020 completed Not Available [facility] 08/24/2023 05:18:00 COVID-19, mRNA, LNP-S, PF, 100 mcg/0.5mL dose or 50 mcg/0.25mL dose 01/07/2021 completed Not Available [facility] 08/24/2023 05:18:00 COVID-19, mRNA, LNP-S, PF, 100 mcg/0.5mL dose or 50 mcg/0.25mL dose 03/15/2022 completed Not Available [facility] 08/24/2023 05:18:00 SARS-COV-2 (COVID-19) vaccine, UNSPECIFIED 09/17/2021 completed Not Available [facility] 08/24/2023 05:18:00 COVID-19, mRNA, LNP-S, bivalent, PF, 30 mcg/0.3 mL dose 11/27/2022 completed Not Available [facility] 08/24/20 05:18:00 pneumococcal polysaccharide PPV23 03/15/2022 completed Not Available [facility] 2022 05:18:00 influenza, unspecified formulation 07/17/2020 completed Not Available [facility] 08/24/2023 05:18:00 Past Encounters Encounter ID Performer Location Encounter Start Date Encounter Closed Date Diagnosis/Indication Diagnosis SNOMED-CT Code [id number] PEPE BILL PA-C [address] [address] [place] [address] 05/27/2024 16:09:14 05/27/2024 17:06:24 Health Concerns Section Related Observation LastModified by Organization Detai ls LastModified Time None Recorded Concern Status LastModified by Organization Details LastModified Time None Recorded Advance Directives Directive None Recorded Payers Encounter Date Sequence Insurance Name Policy Number Policy White Covered Member ID White Member ID Guarantor Name 05/27/2024 1 *SELF PAY* Ted Hernandez
[2024-05-28 17:11] LABS: Abs Immature Grans 0.04 10^3/uL (0.0-0.06); Absolute Basophil Count 0.05 10^3/uL (0.0-0.2); Absolute Eosinophil Count 0.21 10^3/uL (0.0-0.7); Absolute Lymphocyte Count 0.77 10^3/uL (1.2-3.4); Absolute Monocyte Count 1.14 10^3/uL (0.1-0.8); Absolute Neutrophil Count 6.67 10^3/uL (1.2-6.7); Basophils % 0.6 %; Eosinophils % 2.4 %; HCT 21.8 % (40.0-50.0); Immature Grans % 0.5 %; Lymphocytes % 8.7 %; MCH 30.7 pg (27.0-33.0); MCHC 32.6 % (32.0-36.0); MCV 94 fL (80-95); MPV 11.7 fL (8.0-11.0); Monocytes % 12.8 %; Platelet Count 355 10^3/uL (130-400); RBC 2.31 10^6/uL (4.36-5.78); RDW 16.5 % (11.8-14.1); RDW-SD 56.3 fL; WBC 8.88 10^3/uL (4.4-10.8)
[2024-05-28 17:12] LABS: HGB 7.1 g/dL (13.5-17.5)
[2024-05-28 17:50] LABS: ALT 24 U/L (16-63); AST 11 U/L (15-37); Albumin 1.9 g/dL (3.4-5.0); Alkaline Phosphatase 85 U/L (46-116); Anion Gap 14.2 mmol/L (3-11); BUN 67 mg/dL (7-18); Bilirubin, Total 0.19 mg/dL (0.2-1.0); CO2 21.8 mmol/L (21.0-32.0); CREATININE 3.3 mg/dL (0.70-1.30); Calcium 8.9 mg/dL (8.5-10.1); Chloride 103 mmol/L (98-107); Estimated GFR 19.32 (mL/min/1.73m2); Glucose 132 mg/dL (74-106); Potassium 4.8 mmol/L (3.5-5.1); Sodium 139 mmol/L (136-145); Total Protein 6.3 g/dL (6.4-8.2)
[2024-05-28 18:01] LABS: Anisocytosis 1+; Diff Comment RBC Morph Reviewed
== END 2024-05-28 15:33 | disposition home or self-care (01) ==
LOC: LBN 15:32
PROVIDERS: PCP Physician Assistant; Visit Provider Family Medicine
DX: M86.18 Other acute osteomyelitis, other site (principal)
CPT/HCPCS: 80053; 85025; 86140

== ENCOUNTER 2024-06-03 15:20 | Outpatient (REF) | payer MEDICARE, SELFPAY ==
--- OUTSIDE RECORDS SUMMARY | 2024-06-03 15:22 | XMS_ITS | Encounter Summary ---
Author Organization [facility] Address [facility] [place] [address] Care Team Providers Care Tongue Binder Name Role Phone None Primary Care Provider Unavailabl e Encounter Details Date Type Department Care Team (Late st Contact Info) Description 05/26/2024 Orders [place] [address] Maryann Dowell MD [facility] INFECTIOUS [place] [address] Osteomyelitis of second toe of right foot; Coagulase-negative staphylococcal infection Social History Tobacco Use Types Packs/Day Years Used Date Smoking Tobacco: Former Cigarettes 14 0.6 S tarted: 2023 Smokeless Tobacco: Never Alcohol Use Standard Drinks/Week Comments Yes 0 (1 standard drink = 0.6 oz pur e alcohol) 3-4 PER [facility] Inpatient Questions Answer Date Recorded Does Anyone Try to Keep You From Having Contact with Others or Doing Things Outside Your Home? no 05/10/2024 Feels Threatened by Someone no 04/15 Feels Unsafe at Home or Work/School no 05/10/2024 Physical Signs of Abuse Present no 05/10/2024 Sex and Gender Information Value Date Recorded Sex Assigned at Not on file Gender Identity Not on file Sexual Orientation Not on file documented as of this encounter Plan of Treatment Upcoming Encounters Date Type Department Care Team (Late st Contact Info) Description 06/10/2024 10:30 AM EDT Office [place] [address] Elkin Garcia MD [facility] DR ORTHOPAEDIC [place] [address] documented as of this encounter Visit Diagnoses Diagnosis Osteomyelitis of second toe of right foot Coagulase-negative staphylococcal infection Other staphylococcus infection in conditions classified elsewhere and of unspecified site documented in this encounter Care Teams Tongue Binder Relationship 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
--- OUTSIDE RECORDS SUMMARY | 2024-06-03 15:22 | XMS_ITS | Clinical Summary ---
Author Organization [facility] Address [facility] [place] [address] Care Team Providers Care Separator Tender Name Role Phone None Primary Care Provider Unavailabl e Allergies No known active allergies Medications Medication Sig Dispensed Refills Start Date End Date Status furosemide (LASIX) 20 mg Tablet Take 40 mg by mouth daily. 0 11/08/2017 Active DILT-XR 240 mg Capsule,Degradable Cnt Release Take 240 mg by mouth daily. 0 11/08/2017 Active multivitamin (THERAGRAN) Tablet Take 1 tablet by mouth daily. Active acetaminophen (TYLENOL) 650 mg Tablet Sustained Release Take 1,300 mg by mouth every 8 hours as needed for Pain. Do not exceed 6 tabs in 24 hours Active carvediloL (Coreg) 25 mg tablet Take 25 mg by mouth 2 times daily (with meals). Active Xarelto 15 mg tablet Take 1 tablet by mouth daily. 30 tablet 05/28/2024 Active insulin lispro (HumaLOG) 100 unit/mL Insulin Pen Inject 0-8 Units subcutaneously 3 times daily (before meals). Inject 1 unit for every 10 grams of carbohydrates 3 mL 05/23/2024 Active insulin glargine (Lantus) 100 unit/mL (3 mL) pen Inject 14 Units subcutaneously nightly. 3 mL 05/23/2024 Active ipratropium-albuter oL (Duoneb) 0.5 mg-3 mg(2.5 mg base)/3 mL Solution for Nebulization Take 0.5 mg by nebulization every 6 hours. 3 mL 05/23/2024 Active lactobacillus acidophilus Capsule Take 1 capsule by mouth daily for 30 days. 30 capsule 05/24/2024 Active pantoprazole EC (Protonix) [address] tablet Take 1 tablet by mouth 2 times daily for 60 days. 60 tablet 1 05/23/2024 Active sevelamer carbonate (Renvela) 800 mg tablet Take 1 tablet by mouth 3 times daily (with meals) for 30 days. 90 tablet 05/23/2024 Active sodium bicarbonate 650 mg tablet Take 1 tablet by mouth 2 times daily for 30 days. 60 tablet 05/23/2024 4 Active cefTRIAXone (Rocephin) 1 gram injection solutionIndications :Osteomyelitis of second toe of right foot,Coagulase-nega tive staphylococcal infection Inject 2 g into the vein daily for 9 days. 05/27/2024 Active Active Problems Problem Noted Date Diagnosed Date Septic shock 2024 Degenerative lumbar spinal stenosis 09/25/2017 Encounters Date Type Department Care Team Description 05/30/2024 [place] [address] Lu Mcfarland, PAPER CARRIER 05/26/2024 Orders [place] [address] Maryann Dowell MD Osteomyelitis of second toe of right foot; Coagulase-negative staphylococcal infection 05/26/2024 [place] [address] Marina [place] RN 05/22/2024 4:33 PM EDT Anesthesia [place] [address] Soledad Doyle MD Pouliot, Ryan C, MD 05/22/2024 1:00 PM EDT - 05/22/2024 1:30 PM EDT [place] [address] Jonn Mena MD EGD, UPPER GI ENDOSCOPY (WRVU 2.09) 05/21/2024 Travel 05/14/2024 10:37 AM EDT Anesthesia Event Main Operating Room [place] [address] Gertrudis Kimball MD Godbout, Jennifer M, MD 05/14/2024 10:00 AM EDT - 05/14/2024 11:24 AM EDT Surgery [place] [address] Elkin Garcia MD AMPUTATION, TRANSMETATARSAL TOE, ONE TOE (WRVU 6.64) 05/10/2024 2:12 AM EDT - 05/23/2024 4:14 PM EDT Hospital Encounter Surgical Unit Level 4 [place] [address] Arely Dickson MD Saunders, Richard K, MD Singh, Gurbakhshish, MD Swenson, Beverly Goodson MD Septic shock; Altered tissue perfusion; Osteomyelitis of second toe of right foot; Stage 4 chronic kidney disease Discharge Disposition: Halfway Facility 2024 9:25 PM EDT Ancillary Procedure Radiology Library at [place] [id number] Arely Dickson MD 2024 9:20 PM EDT Ancillary Procedure [facility] at [place] [id number] Arely Dickson MD from Last 3 Months Social History Tobacco Use Types Packs/Day Years Used Date Smoking Tobacco: Former Cigarettes 14 0.6 S tarted: 2023 Smokeless Tobacco: Never Tobacco Cessation:Counseling Given: Not Answered Alcohol Use Standard Drinks/Week Comments Yes 0 (1 standard drink = 0.6 oz pur e alcohol) 3-4 PER [facility] Inpatient Questions Answer Date Recorded Does [...] on file Sexual Orientation Not on file Last Filed Vital Signs Vital Sign Reading Time Taken Comments Blood Pressure 146/60 05/23/2024 12:27 PM EDT Pulse 87 05/22/2024 3:45 PM EDT full bed change d/t very large black pasty stool. gown changed. entire genital area very red, moist and areas of excoriation. pt stated the nurses down on the floor gave powder. encouraged pt to have it examined by MD. Will inform physician Temperature 36.5 ??C (97.7 ??F) 05/23/2024 8 :36 AM EDT Respiratory Rate 20 05/23/2024 3:49 AM EDT Oxygen Saturation 99% 05/23/2024 8:3 6 AM EDT Inhaled Oxygen Concentration - - Weight 167.8 kg (369 lb 14.9 oz) 05/23/2024 6:24 AM EDT Height 190.5 cm (6' 3) 05/14/2024 9:50 AM EDT Body Mass Index 46.24 05/14/2024 9:50 AM EDT Plan of Treatment Upcoming Encounters Date Type Department Care Team (Late st Contact Info) Description 06/10/2024 10:30 AM EDT [place] [address] Elkin Garcia MD [facility] [place] [address] Health Maintenance Due Date Last Done Comments CT Colonography 1954 Colonoscopy 1954 Colorectal Cancer Screening 1954 FIT DNA 1954 FIT 1954 Sigmoidoscopy (10 year) with FIT yearly 1954 Sigmoidoscopy 1954 Hepatitis C Screening 1972 Lipid Screening 1972 Tdap adult 1973 Tetanus vaccine 1973 Zoster vaccine (1 of 2) 2004 Advance Directive 2009 AAA Screen 2019 Pneumoccocal Vaccine: 65+ (1 of 1 - PCV) 2019 Covid-19 Vaccine (3 - 2022-2 4 season) 2023 11/27/2022, 03/15/2022 Influenza (Flu) vaccine (1 o f 1 - Influenza standard series) 06/15/2024 Diabetes Screening (HgbA1C o r Glucose) 05/23/2027 05/23/2024, 05/23/2024, 05/22/2024, Additional history exists Medical Devices Implanted Type Area Hammer Adjuster Device Identifier Shelf Expiration Date Model / Serial / Lot Clip [id number] Endoscopic Ligation Resolution 360 Each ([id number]) - [id number] Implanted:Qty: 1 on 05/22/2024 by Jonn Mena MD at [facility] IMPLANTS [employer] - [employer]TE [id number] / / Procedures Procedure Name Priority Date/Time Associated Diagnosis Comments LAB SCAN 05/28/2024 12:00 AM EDT POC, GLUCOSE Routine 05/23/2024 12:32 PM EDT BASIC METABOLIC PANEL Routine 05/23/2024 9:46 AM EDT CBC (WITH DIFF) Routine 05/23/2024 9:46 AM EDT POC, GLUCOSE Routine 05/23/2024 7:44 AM EDT HC TR PSLD, RED BLOOD CELLS, IRRADIATED Routine 05/23/2024 3:49 AM EDT Septic shock POC, GLUCOSE Routine 05/23/2024 3:49 AM EDT POC, GLUCOSE Routine 05/23/2024 1:26 AM EDT SCAN, PERIPHERAL BLOOD Routine 1:19 AM EDT MAGNESIUM Routine 05/23/2024 1:19 AM EDT PHOSPHORUS Routine 05/23/2024 1:19 AM EDT BASIC METABOLIC PANEL Routine 05/23/2024 1:19 AM EDT CBC (WITH DIFF) Routine 05/23/2024 1:19 AM EDT POC, GLUCOSE Routine 05/22/2024 8:21 PM EDT POC, GLUCOSE Routine 05/22/2024 6:20 PM EDT Upper Gi Endoscopy, W/Dir Submuc Inj ([id number]) 05/22/2024 4:39 PM EDT ? melena Upper Gi Endoscopy, Ctrl Bleed ([id number]) 05/22/2024 4:39 PM EDT ? melena Upper GI Endoscopy, Diagnostic ([id number]) 05/22/2024 4:39 PM EDT ? melena UPPER GI ENDOSCOPY Routine 05/22/2024 12 :48 PM EDT ABORH RECHECK (PATIENT HISTORY FOUND) Routine 05/22/2024 11:18 AM EDT TYPE AND SCREEN ([facility]P/TARA) Routine 05/22/2024 11:18 AM EDT HEMOGLOBIN AND HEMATOCRIT, BLOOD Routine 05/22/2024 11:18 AM EDT POC, GLUCOSE Routine 05/22/2024 11:14 AM EDT POC, GLUCOSE Routine 05/22/2024 8:07 AM EDT HEPATIC FUNCTION PANEL Add-On 5:18 AM EDT MAGNESIUM Routine 05/22/2024 5:18 AM EDT PHOSPHORUS Routine 05/22/2024 5:18 AM EDT BASIC METABOLIC PANEL Routine 05/22/2024 5:18 AM EDT CBC (WITH DIFF) Routine 05/22/2024 5:18 AM EDT POC, GLUCOSE Routine 05/22/2024 3:50 AM EDT LAB SCAN 05/22/2024 12:00 AM EDT POC, GLUCOSE Routine 05/21/2024 11:28 PM EDT POC, GLUCOSE Routine 05/21/2024 7:49 PM EDT POC, GLUCOSE Routine 05/21/2024 5:18 PM EDT HEMOGRAM Routine 05/21/2024 3:00 PM EDT POC, GLUCOSE Routine 05/21/2024 12:39 PM EDT IR TUNNELED CENTRAL VENOUS ACCESS NON-DIALYSIS Routine 05/21/2024 12:11 PM EDT POC, GLUCOSE Routine 05/21/2024 9:12 AM EDT POC, GLUCOSE Routine 05/21/2024 8:32 AM EDT HEMOGRAM Routine 05/21/2024 8:27 AM EDT CRP, ACUTE INFLAMMATION Add-On 05/21/20 4:58 AM EDT MAGNESIUM Routine 05/21/2024 4:58 AM EDT PHOSPHORUS Routine 05/21/2024 4:58 AM EDT BASIC METABOLIC PANEL Routine 05/21/2024 4:58 AM EDT CBC (WITH DIFF) Routine 05/21/2024 4:58 AM EDT POC, GLUCOSE Routine 05/21/2024 3:45 AM EDT POC, GLUCOSE Routine 05/20/2024 11:44 PM EDT POC, GLUCOSE Routine 05/20/2024 7:24 PM EDT POC, GLUCOSE Routine 05/20/2024 4:24 PM EDT HEMOGRAM Routine 05/20/2024 12:35 PM EDT POC, GLUCOSE Routine 05/20/2024 11:52 AM EDT US RETROPERITONEAL COMPLETE Routine 05/20/2024 10:36 AM EDT POC, GLUCOSE Routine 05/20/2024 8:03 AM EDT MAGNESIUM Routine 05/20/2024 4:27 AM EDT PHOSPHORUS Routine 05/20/2024 4:27 AM EDT BASIC METABOLIC PANEL Routine 05/20/2024 4:27 AM EDT CBC (WITH DIFF) Routine 05/20/2024 4:27 AM EDT POC, GLUCOSE Routine 05/20/2024 3:11 AM EDT POC, GLUCOSE Routine 05/19/2024 11:07 PM EDT POC, GLUCOSE Routine 05/19/2024 8:20 PM EDT IRON AND TIBC Routine 05/19/2024 5:09 PM EDT PTH Routine 05/19/2024 5:09 PM EDT FERRITIN Routine 05/19/2024 5:08 PM EDT POC, GLUCOSE Routine 05/19/2024 3:59 PM EDT POC, GLUCOSE Routine 05/19/2024 12:32 PM EDT POC, GLUCOSE Routine 05/19/2024 8:12 AM EDT MAGNESIUM Routine 05/19/2024 5:11 AM EDT PHOSPHORUS Routine 05/19/2024 5:11 AM EDT BASIC METABOLIC PANEL Routine 05/19/2024 5:11 AM EDT CBC (WITH DIFF) Routine 05/19/2024 5:11 AM EDT POC, GLUCOSE Routine 05/19/2024 3:27 AM EDT POC, GLUCOSE Routine 05/19/2024 12:02 AM EDT POC, GLUCOSE Routine 05/18/2024 8:05 PM EDT POC, GLUCOSE Routine 05/18/2024 6:14 PM EDT BASIC METABOLIC PANEL Routine 05/18/2024 5:04 PM EDT POC, GLUCOSE Routine 05/18/2024 11:45 AM EDT C DIFF SCREEN PERFORMABLE Routine 05/18/2024 11:31 AM EDT C DIFF PCR Routine 05/18/2024 11:31 AM EDT C. DIFFICILE SCREEN Routine 05/18/2024 1 1:31 AM EDT CREATININE, URINE, RANDOM Routine 05/18/2024 8:57 AM EDT ELECTROLYTES, URINE, RANDOM Routine 05/18/2024 8:57 AM EDT POC, GLUCOSE Routine 05/18/2024 8:34 AM EDT POC, GLUCOSE Routine 05/18/2024 4:10 AM EDT CBC (WITH DIFF) Routine 05/18/2024 4:01 AM EDT MAGNESIUM Routine 05/18/2024 4:00 AM EDT PHOSPHORUS Routine 05/18/2024 4:00 AM EDT BASIC METABOLIC PANEL Routine 05/18/2024 4:00 AM EDT POC, GLUCOSE Routine 05/17/2024 11:30 PM EDT POC, GLUCOSE Routine 05/17/2024 8:12 PM EDT POC, GLUCOSE Routine 05/17/2024 5:35 PM EDT POC, GLUCOSE Routine 05/17/2024 12:50 PM EDT POC, GLUCOSE Routine 05/17/2024 8:20 AM EDT VANCOMYCIN LEVEL, RANDOM Timed 05/17/2024 5:49 AM EDT MAGNESIUM Routine 05/17/2024 5:49 AM EDT PHOSPHORUS Routine 05/17/2024 5:49 AM EDT BASIC METABOLIC PANEL Routine 05/17/2024 5:49 AM EDT CBC (WITH DIFF) Routine 05/17/2024 5:49 AM EDT POC, GLUCOSE Routine 05/17/2024 3:54 AM EDT POCT GLUCOSE Routine 05/16/2024 11:46 PM EDT POCT GLUCOSE Routine 05/16/2024 9:06 PM EDT POCT GLUCOSE Routine 05/16/2024 8:04 PM EDT POCT GLUCOSE Routine 05/16/2024 4:51 PM EDT POCT GLUCOSE Routine 05/16/2024 12:48 PM EDT POCT GLUCOSE Routine 05/16/2024 8:45 AM EDT DIFFERENTIAL, AUTOMATED Routine 05/16/20 5:14 AM EDT HEMOGRAM Routine 05/16/2024 5:14 AM EDT VANCOMYCIN LEVEL, RANDOM Timed 05/16/2024 5:14 AM EDT MAGNESIUM Routine 05/16/2024 5:14 AM EDT PHOSPHORUS Routine 05/16/2024 5:14 AM EDT BASIC METABOLIC PANEL Routine 05/16/2024 5:14 AM EDT CBC (WITH DIFF) Routine 05/16/2024 5:14 AM EDT POCT GLUCOSE Routine 05/16/2024 3:53 AM EDT POCT GLUCOSE Routine 05/15/2024 11:41 PM EDT POCT GLUCOSE Routine 05/15/2024 10:32 PM EDT POCT GLUCOSE Routine 05/15/2024 7:53 PM EDT MRSA PCR SCREEN Routine 05/15/2024 4:15 PM EDT POCT GLUCOSE Routine 05/15/2024 3:20 PM EDT POCT GLUCOSE Routine 05/15/2024 11:39 AM EDT POCT GLUCOSE Routine 05/15/2024 8:02 AM EDT DIFFERENTIAL, AUTOMATED Routine 05/15/20 5:12 AM EDT HEMOGRAM Routine 05/15/2024 5:12 AM EDT MAGNESIUM Routine 05/15/2024 5:12 AM EDT PHOSPHORUS Routine 05/15/2024 5:12 AM EDT BASIC METABOLIC PANEL Routine 05/15/2024 5:12 AM EDT CBC (WITH DIFF) Routine 05/15/2024 5:12 AM EDT POCT GLUCOSE Routine 05/15/2024 4:55 AM EDT POCT GLUCOSE Routine 05/15/2024 2:51 AM EDT POCT GLUCOSE Routine 05/14/2024 9:03 PM EDT POCT GLUCOSE Routine 05/14/2024 7:15 PM EDT POCT GLUCOSE Routine 05/14/2024 4:47 PM EDT POCT GLUCOSE Routine 05/14/2024 1:21 PM EDT SCAN DOC: TELEMETRY STRIPS 05/14/2024 12:47 PM EDT ANAEROBIC CULTURE Routine 05/14/2024 11: 33 AM EDT TISSUE CULTURE Routine 05/14/2024 11:33 AM EDT HC TISSUE HOMOGENIZATION FOR CULTURE Routine 05/14/2024 11:33 AM EDT SURGICAL PATHOLOGY REPORT Routine 05/14/2024 11:32 AM EDT SPECIMEN TO PATHOLOGY Routine 05/14/2024 11:32 AM EDT Amputation Metatarsal+Toe, Single ([id number]) 05/14/2024 10:37 AM EDT right second toe osteomyelitis AMPUTATION, TRANSMETATARSAL TOE, ONE TOE Routine 05/14/2024 9:19 AM EDT POCT GLUCOSE Routine 05/14/2024 7:58 AM EDT DIFFERENTIAL, AUTOMATED Routine 05/14/20 24 5:01 AM EDT HEMOGRAM Routine 05/14/2024 5:01 AM EDT VANCOMYCIN LEVEL, RANDOM Timed 05/14/2024 5:01 AM EDT MAGNESIUM Routine 05/14/2024 5:01 AM EDT PHOSPHORUS Routine 05/14/2024 5:01 AM EDT BASIC METABOLIC PANEL Routine 05/14/2024 5:01 AM EDT CBC (WITH DIFF) Routine 05/14/2024 5:01 AM EDT POCT GLUCOSE Routine 05/13/2024 8:41 PM EDT POCT GLUCOSE Routine 05/13/2024 6:06 PM EDT POCT GLUCOSE Routine 05/13/2024 11:12 AM EDT POCT GLUCOSE Routine 05/13/2024 7:47 AM EDT SCAN, PERIPHERAL BLOOD Routine 5:29 AM EDT DIFFERENTIAL, AUTOMATED Routine 05/13/20 5:29 AM EDT HEMOGRAM Routine 05/13/2024 5:29 AM EDT MAGNESIUM Routine 05/13/2024 5:29 AM EDT PHOSPHORUS Routine 05/13/2024 5:29 AM EDT BASIC METABOLIC PANEL Routine 05/13/2024 5:29 AM EDT CBC (WITH DIFF) Routine 05/13/2024 5:29 AM EDT POCT GLUCOSE Routine 05/12/2024 11:46 PM EDT POCT GLUCOSE Routine 05/12/2024 8:36 PM EDT POCT GLUCOSE Routine 05/12/2024 5:38 PM EDT VANCOMYCIN LEVEL, RANDOM Timed 05/12/2024 2:10 PM EDT POCT GLUCOSE Routine 05/12/2024 1:42 PM EDT DUPLEX FOR DVT, LEG, UNILAT Routine 05/12/2024 10:19 AM EDT Septic shock POCT GLUCOSE Routine 05/12/2024 9:00 AM EDT SEDIMENTATION RATE Routine 05/12/2024 4: 45 AM EDT CRP, ACUTE INFLAMMATION Routine 05/12/20 4:45 AM EDT DIFFERENTIAL, AUTOMATED Routine 05/12/20 4:45 AM EDT HEMOGRAM Routine 05/12/2024 4:45 AM EDT MAGNESIUM Routine 05/12/2024 4:45 AM EDT PHOSPHORUS Routine 05/12/2024 4:45 AM EDT BASIC METABOLIC PANEL Routine 05/12/2024 4:45 AM EDT CBC (WITH DIFF) Routine 05/12/2024 4:45 AM EDT ANGY, LEGS, MULTIPLE LEVELS Routine 05/12/2024 3:22 AM EDT Altered tissue perfusion POCT GLUCOSE Routine 05/11/2024 8:14 PM EDT VANCOMYCIN LEVEL, RANDOM Timed 05/11/2024 8:10 PM EDT POCT GLUCOSE Routine 05/11/2024 4:34 PM EDT POCT GLUCOSE Routine 05/11/2024 11:47 AM EDT POCT GLUCOSE Routine 05/11/2024 6:57 AM EDT DIFFERENTIAL, AUTOMATED Routine 05/11/20 2:00 AM EDT HEMOGRAM Routine 05/11/2024 2:00 AM EDT VANCOMYCIN LEVEL, RANDOM Timed 05/11/2024 2:00 AM EDT MAGNESIUM Routine 05/11/2024 2:00 AM EDT PHOSPHORUS Routine 05/11/2024 2:00 AM EDT BASIC METABOLIC PANEL Routine 05/11/2024 2:00 AM EDT CBC (WITH DIFF) Routine 05/11/2024 2:00 AM EDT POCT GLUCOSE Routine 05/10/2024 11:40 PM EDT POCT GLUCOSE Routine 05/10/2024 4:09 PM EDT POCT GLUCOSE Routine 05/10/2024 12:11 PM EDT VANCOMYCIN LEVEL, RANDOM Timed 05/10/2024 12:00 PM EDT POCT GLUCOSE Routine 05/10/2024 8:09 AM EDT CK Routine 05/10/2024 6:55 AM EDT PHOSPHORUS Routine 05/10/2024 6:55 AM EDT BASIC METABOLIC PANEL Routine 05/10/2024 6:55 AM EDT LACTATE, WHOLE BLOOD Routine 05/10/2024 6:55 AM EDT MRI FOOT WWO CONTRAST RIGHT Routine 05/10/2024 5:51 AM EDT CREATININE, URINE, RANDOM Routine 05/10/2024 4:15 AM EDT SODIUM, URINE, RANDOM Routine 05/10/2024 4:15 AM EDT UREA NITROGEN, URINE, RANDOM Routine 05/10/2024 4:15 AM EDT SKIN/SUP WOUND CULTURE Routine 2:56 AM EDT URINALYSIS DIPSTICK STAT 05/10/2024 2 :42 AM EDT EKG 12-LEAD Routine 05/10/2024 2:38 AM EDT XR CHEST ONE VIEW STAT 05/10/2024 2:3 7 AM EDT BLOOD CULTURE STAT 05/10/2024 2:32 AM EDT POCT GLUCOSE Routine 05/10/2024 2:30 AM EDT TYPE AND SCREEN VALIDITY Routine 05/10/2024 2:20 AM EDT ABORH RECHECK STATUS STAT 05/10/2024 2:20 AM EDT TYPE AND SCREEN ([facility]P/TARA) STAT 05/10/2024 2:20 AM EDT VANCOMYCIN LEVEL, RANDOM STAT 05/10/2024 2:20 AM EDT SCAN, PERIPHERAL BLOOD STAT 2:20 AM EDT DIFFERENTIAL, AUTOMATED STAT 05/10/20 2:20 AM EDT HEMOGRAM STAT 05/10/2024 2:20 AM EDT HEMOGLOBIN A1C Routine 05/10/2024 2:20 AM EDT HEPATIC FUNCTION PANEL Routine 2:20 AM EDT PHOSPHORUS STAT 05/10/2024 2:20 AM EDT MAGNESIUM STAT 05/10/2024 2:20 AM EDT BASIC METABOLIC PANEL STAT 05/10/2024 2:20 AM EDT CBC (WITH DIFF) STAT 05/10/2024 2:20 AM EDT PROTHROMBIN TIME STAT 05/10/2024 2:20 AM EDT LACTATE, WHOLE BLOOD STAT 05/10/2024 2:20 AM EDT FILM LIBRARY STORAGE ONLY CT CHEST ABDOMEN PELVIS Routine 2024 9:16 PM EDT FILM LIBRARY STORAGE ONLY CT LOWER EXTREMITY Routine 2024 9:16 PM EDT from Last 3 Months Results * Scan Doc: Lab (05/28/2024 12:00 AM EDT) Only the most recent of2 resultswithin the time period is included. Narrative 05/28/2024 12:00 AM EDT Ordered by an unspecified provider. Scanning Provider MEDIA MGR SCAN EXT O RDR/RSLT * POC, GLUCOSE (05/23/2024 12:32 PM EDT) Only the most recent of40 resultswithin the time period is included. [facility] Signature Glucometer, POC 137 65 - 199 mg/dL 05/23/2024 12:32 PM EDT [facility] Comment:Supplemental ranges: <140 mg/dL before meals <180 mg/dL all other times of the day. Blood CAPILLARY BLOOD / Unknown 05/23/2024 12:32 PM EDT 05/23/2024 12:32 PM EDT Beverly Spears MD POINT OF CARE TEST ORDERABLES [facility] [place] [address] * (ABNORMAL) CBC (with Diff) (05/23/2024 9:46 AM EDT) Only the most recent of8 resultswithin the time period is included. White Blood Cell 12.66(H) 4.00 - 9.50 x10(3)/mc L 05/23/2024 10:[facility] Red Blood Cell 2.56(L) 4.58 - 5.54 x10(6)/mc L 05/23/2024 10:52 AM [facility] Hemoglobin 7.7(L) 13.7 - 16.5 g/dL 05/23/2024 10:52 AM [facility] Hematocrit 24.3(L) 40.5 - 48.5 % 05/23/2024 10:52 AM [facility] Mean Cell Volume 94.9(H) 82.9 - 93.1 fL 05/23/2024 10:52 [facility] Mean Cell Hemoglobin 30.1 27.5 - 32.1 pg 05/23/2024 10:52 AM [facility] Mean Cell Hemoglobin Concentration 31.7(L) 32.0 - 35.7 g/dL 05/23/2024 10:52 AM [facility] Platelet 370(H) 145 - 357 x10(3)/mc L 05/23/2024 10:52 AM [facility] Mean Platelet Volume 11.6 7.6 - 12.9 fL 05/23/2024 10:52 AM [facility] RDW Standard Deviation 57.1(H) 36.0 - 45.0 fL 05/23/2024 10:52 AM [facility] RDW coefficient of variation 16.9(H) 11.4 - 13.8 % 05/23/2024 10:52 AM [facility] NRBC% auto 0.0 % 05/23/2024 10:52 AM [facility] NRBC Absolute 0.00 0.00 - 0.00 x10(3)/mc L 05/23/2024 10:52 AM [facility] Neutrophil % 81.6 % 05/23/2024 10:52 AM [facility] Neutrophil Absolute 10.34(H) 1.70 - 6.10 x10(3)/mc L 05/23/2024 10:52 AM [facility] Lymph % 5.1 % 05/23/2024 10:52 AM [facility] Lymph Absolute 0.64(L) 0.90 - 3.20 x10(3)/mc L 05/23/2024 10:52 AM [facility] Monocyte % 10.7 % 05/23/2024 10:52 AM [facility] Monocyte Absolute 1.35(H) 0.30 - 0.90 x10(3)/mc L 05/23/2024 10:52 AM [facility] Eos % 1.7 % 05/23/2024 10:52 AM [facility] Eos Absolute 0.22 0.00 - 0.40 x10(3)/mc L 05/23/2024 10:52 AM [facility] Basophil % 0.3 % 05/23/2024 10:52 AM [facility] Baso Absolute 0.04 0.00 - 0.10 x10(3)/mc L 05/23/2024 10:52 AM EDT [facility] Immature Gran % 0.6 % 10:52 AM [facility] Immature Gran Absolute 0.07(H) 0.00 - 0.04 x10(3)/mc L 05/23/2024 10:52 AM [facility] Blood VENOUS BLOOD SPECIMEN / Unknown IP Care Team Draw / Unknown 05/23/2024 9:46 AM EDT 05/23/2024 10:01 AM EDT Beverly Spears MD HEMATOLOGY ORDERABL ES [facility] [place] [address] * (ABNORMAL) Basic Metabolic Panel (05/23/2024 9:46 AM EDT) Only the most recent of17 resultswithin the time period is included. Glucose 142 65 - 199 mg/dL 05/23/2024 11:27 AM [facility] Comment:Glucose Concentratio n >=200 mg/dL plus symptoms is consistent with Diabetes Mellitus. Blood Urea Nitrogen 83(H) 10 - 20 mg/dL 05/23/2024 11:27 AM [facility] Creatinine 2.64(H) 0.80 - 1.50 mg/dL 05/23/2024 11:27 AM [facility] Sodium 140 135 - 145 mMol/L 05/23/2024 11:27 AM [facility] Potassium 5.2(H) 3.5 - 5.0 mMol/L 05/23/2024 11:27 AM [facility] Chloride 111(H) 98 - 107 mMol/L 05/23/2024 11:27 AM [facility] Carbon Dioxide 20(L) 22 - 31 mMol/L 05/23/2024 11:27 AM [facility] Anion Gap 9 5 - 15 mMol/L 05/23/2024 11:27 AM [facility] Calcium 9.3 8.5 - 10.5 mg/dL 05/23/2024 11:27 AM EDT [facility] Est Glomerular Filtration Rate - Male 25 mL/min/1. 73 m?? 05/23/2024 11:27 AM EDT [facility] Comment: This patient's estimated GFR was calculated using the 2020 CKD-EPI equation. The estimated GFR can vary from the measured GFR by up to 30% in the absence of rapidly changing kidney function. Assessment of the estimated GFR is not appropriate when creatinine concentrations are rapidly changing. For clinical situations in which a more precise estimate of GFR is necessary, consider alternative methods of GFR estimation such as a 24-hour urine creatinine clearance. Assignment of CKD stage 1 - 5 for patients with an eGFR near the transition point between stages may be based on clinical assessment of muscle mass and symptoms in addition to eGFR. Link: eGFR Calculator [employer] Blood VENOUS BLOOD SPECIMEN / Unknown IP Care Team Draw / Unknown 05/23/2024 9:46 AM EDT 05/23/2024 10:01 AM EDT Beverly Spears MD CHEMISTRY ORDERABLE S [facility] [place] [address] * Prepare RBC (05/23/2024 3:49 AM EDT) Status Information Transfused [facility] Product Identification RBC [facility] Unit Number [id number] [facility] Product Code [id number] [facility] Unit Blood Type OPOS [facility] Specimen Expiration Date [id number] [facility] Volulme [address] [facility] Issue Date / Time [id number] [facility] Blood 05/22/2024 12: 42 PM EDT Beverly Spears MD BLOOD BANK PRODUCT ORDERABLES [facility] [place] [address] * (ABNORMAL) Scan, Peripheral Blood (05/23/2024 1:19 AM EDT) RBC Morphology Abnormal 05/23/2024 3:44 AM EDT [facility] Platelet Estimate Increased(A) Normal 05/23/2024 3:44 AM EDT [facility] Ovalocytes 1-5 /HPF 05/23/2024 3:44 AM EDT [facility] [place] cells 1-5 /HPF 05/23/2024 3:44 AM EDT [facility] Blood VENOUS BLOOD SPECIMEN / Unknown IP Care Team Draw / Unknown 05/23/2024 1:19 AM EDT 05/23/2024 2:05 AM EDT Julius Cook MD HEMATOLOGY ORDERAB LES [facility] [place] [address] * (ABNORMAL) Phosphorus (05/23/2024 1:19 AM EDT) Only the most recent of15 resultswithin the time period is included. Pathologist [facility] [place] Phosphorus 5.8(H) 2.5 - 4.5 mg/dL 05/23/2024 2:40 AM EDT [facility] Blood VENOUS BLOOD SPECIMEN / Unknown IP Care Team Draw / Unknown 05/23/2024 1:19 AM EDT 05/23/2024 2:05 AM EDT Julius Cook MD CHEMISTRY ORDERABL ES Performing Organization Address City/[facility]/ZIP Co de Phone Number [facility] [place] [place] [address] * Magnesium (05/23/2024 1:19 AM EDT) Only the most recent of14 resultswithin the time period is included. Magnesium 0.86 0.69 - 1.07 mMol/L 05/23/2024 2:40 AM EDT [facility] Blood VENOUS BLOOD SPECIMEN / Unknown IP Care Team Draw / Unknown 05/23/2024 1:19 AM EDT 05/23/2024 2:05 AM EDT Julius Cook MD CHEMISTRY ORDERABL ES Performing Organization Address [facility]/State/ZIP Co de Phone Number [facility] [place] [address] * Transfuse RBC (05/22/2024 2:45 PM EDT) Beverly Spears MD NURSING TREATMENT O RDERABLES - BLOOD ADMIN * UPPER GI ENDOSCOPY (05/22/2024 12:48 PM EDT) UPPER GI ENDOSCOPY [facility] Endoscopy ___ Procedure Date: 05/22/2024 12:48 PM ? Patient Name: Ave Kolb ? N: [id number] ? Date of : 1955 ? Age: 69 ? Order #: [id number] ? Instrument Name: [id number] ? ___ Procedure: ? Upper GI endoscopy Indications: ? Melena, Suspected upper ? gastrointestinal bleeding Providers: ? Osmar Julien, Sapna Gilman, ? Jonn Mena Referring MD: ? Medicines: ? Propofol per Anesthesia Complications: ? No immediate complications. ___ Procedure: ? Pre-Anesthesia Assessment: ? - Prior to the procedure, a History ? and Physical was performed, and ? patient medications and allergies ? were reviewed. The patient is ? competent. The risks and benefits ? of the procedure and the sedation ? options and risks were discussed ? with the patient. All questions ? were answered and informed consent ? was obtained. Patient ? identification and proposed ? procedure were verified by the ? physician in the pre-procedure ? area. Mental Status Examination: ? alert and oriented. Airway ? Examination: normal oropharyngeal ? airway and neck mobility. ? Respiratory Examination: clear to ? auscultation. CV Examination: ? normal. Prophylactic Antibiotics: ? The patient does not require ? prophylactic antibiotics. Prior ? Anticoagulants: The patient has ? taken no anticoagulant or ? antiplatelet agents. ASA Grade ? Assessment: III - A patient with ? severe systemic disease. After ? reviewing the risks and benefits, ? the patient was deemed in ? satisfactory condition to undergo ? the procedure. The anesthesia plan ? was to use monitored anesthesia ? care (MAC). Immediately prior to ? administration of medications, the ? patient was re-assessed for ? adequacy to receive sedatives. The ? heart rate, respiratory rate, ? oxygen saturations, blood pressure, ? adequacy of pulmonary ventilation, ? and response to care were monitored ? throughout the procedure. The ? physical status of the patient was ? re-assessed after the procedure. ? The procedure, indications, ? benefits, risks and alternatives ? were explained to the patient. ? Specifically discussed were ? potential complications including, ? but not limited to, bleeding, ? perforation, infection, missing a ? cancer, and adverse medication ? reactions. The Endoscope was ? introduced through the mouth, and ? advanced to the The Endoscope was ? introduced through the and advanced ? to the The patient tolerated the ? procedure well. ? Findings: ? The examined esophagus was normal. ? The entire examined stomach was normal. ? Several small erosions and one non-bleeding duodenal ? ulcer with adherent clot was found in the first ? portion of the duodenum. Area was successfully ? injected with 5 mL 1:10,000 epinephrin for drug ? delivery. To prevent bleeding post-intervention, two ? hemostatic clips were successfully placed. ? Moderate Sedation: ? Not applicable - See Anesthesia documentation Impression: ?- Normal esophagus. ? - Normal stomach. ? - Several small erosions and one ? non-bleeding duodenal ulcer with ? adherent clot was found in the ? first portion of the duodenum; ? clipped and injected with epinephrin ? - No specimens collected. Recommendation: ?- [facility] ? for ongoing care. ? - Use a proton pump inhibitor PO ? BID for 2 months, then daily ? - Avoid NSAIDs ? - Follow up with the inpatient GI ? consult service ? Attending Participation: ? I personally performed the entire procedure. ? Jonn Mena, 05/22/2024 4:58:10 PM Number of Addenda: 0 Note Initiated On: 05/22/2024 12:48 PM PROVATION 05/22/2024 12:4 8 PM EDT Unknown GENERAL SURGICAL ORD ERABLES PROVATION * ABORH RECHECK (PATIENT HISTORY FOUND) (05/22/2024 11:18 AM EDT) Pathologist [facility] [place] ABORH Recheck Progress Complete 05/22/2024 1:[address] [facility] Blood VENOUS BLOOD SPECIMEN / Unknown IP Care Team Draw / Unknown 05/22/2024 11:18 AM EDT 05/22/2024 11:27 AM EDT Beverly Spears MD BLOOD BANK LAB FADY [facility] [place] [address] * (ABNORMAL) Hemoglobin and Hematocrit, blood (05/22/2024 11:18 AM EDT) Hemoglobin 6.9(L) 13.7 - 16.5 g/dL 05/22/2024 12:02 PM EDT [facility] Hematocrit 21.4(L) 40.5 - 48.5 % 05/22/2024 12:02 PM EDT [facility] Blood VENOUS BLOOD SPECIMEN / Unknown IP Care Team Draw / Unknown 05/22/2024 11:18 AM EDT 05/22/2024 11:36 AM EDT Beverly Spears MD HEMATOLOGY ORDERABL ES [facility] [place] [address] * Type and screen [place] [place] (05/22/2024 11:18 AM EDT) Only the most recent of2 resultswithin the time period is included. ABOR Type O POSITIVE 05/22/2024 12:[address] [facility] PATIENT HISTORY Found 05/22/2024 12:[address] [facility] Expires at [id number] on: 05-22-2024 05/22/2024 12:[address] [facility] ANTIBODY SCREEN AUTOMATED Negative 05/22/2024 12:[address] [facility] T&S only valid at [facility] 05/22/2024 12:[address] [facility] Blood VENOUS BLOOD SPECIMEN / Unknown IP Care Team Draw / Unknown 05/22/2024 11:18 AM EDT 05/22/2024 11:[address] [facility] - 05/22/2024 12:31 PM EDT This Type and Screen result is only valid at the [facility] Beverly Spears MD BLOOD BANK LAB ORDE RABLES Performing Organization Address City/[facility]/ZIP Co de Phone Number [facility] [place] [address] * (ABNORMAL) Hepatic Function Panel (05/22/2024 5:18 AM EDT) Only the most recent of2 resultswithin the time period is included. Pathologist [facility] [place] Albumin 2.6(L) 3.2 - 5.2 g/dL 05/22/2024 9:50 AM EDT [facility] Aspartate Aminotransferase 18 <=39 unit/L 05/22/2024 9:50 AM EDT [facility] Alanine Aminotransferase 42 0 - 55 unit/L 05/22/2024 9:50 AM EDT [facility] Alkaline Phosphatase 84 40 - 130 unit/L 05/22/2024 9:50 AM EDT [facility] Bilirubin, Total <0.2 <=1.3 mg/dL 05/22/2024 9:50 AM EDT [facility] Bilirubin, Direct <0.2 0.0 - 0.3 mg/dL 05/22/2024 9:50 AM EDT [facility] Protein, Total 6.0(L) 6.1 - 8.0 g/dL 05/22/2024 9:50 AM EDT [facility] Blood VENOUS BLOOD SPECIMEN / Unknown IP Care Team Draw / Unknown 05/22/2024 5:18 AM EDT 05/22/2024 5:45 AM EDT Beverly Spears MD CHEMISTRY ORDERABLE S [facility] [place] [place] [address] * (ABNORMAL) Hemogram (05/21/2024 3:00 PM EDT) Only the most recent of10 resultswithin the time period is included. White Blood Cell 14.25(H) 4.00 - 9.50 x10(3)/mc L 05/21/2024 3:41 PM EDT [facility] Red Blood Cell 2.61(L) 4.58 - 5.54 x10(6)/mc L 05/21/2024 3:41 PM EDT [facility] Hemoglobin 7.8(L) 13.7 - 16.5 g/dL 05/21/2024 3:41 PM EDT [facility] Hematocrit 24.5(L) 40.5 - 48.5 % 05/21/2024 3:41 PM EDT [facility] Mean Cell Volume 93.9(H) 82.9 - 93.1 fL 05/21/2024 3:41 PM EDT [facility] Mean Cell Hemoglobin 29.9 27.5 - 32.1 pg 05/21/2024 3:41 PM EDT [facility] Mean Cell Hemoglobin Concentration 31.8(L) 32.0 - 35.7 g/dL 05/21/2024 3:41 PM EDT [facility] Platelet 456(H) 145 - 357 x10(3)/mc L 05/21/2024 3:41 PM EDT [facility] Mean Platelet Volume 11.1 7.6 - 12.9 fL 05/21/2024 3:41 PM EDT [facility] RDW Standard Deviation 55.2(H) 36.0 - 45.0 fL 05/21/2024 3:41 PM EDT [facility] RDW coefficient of variation 16.1(H) 11.4 - 13.8 % 05/21/2024 3:41 PM EDT [facility] NRBC% auto 0.0 % 05/21/2024 3:41 PM EDT [facility] NRBC Absolute 0.00 0.00 - 0.00 x10(3)/mc L 05/21/2024 3:41 PM EDT [facility] Blood VENOUS BLOOD SPECIMEN / Unknown IP Care Team Draw / Unknown 05/21/2024 3:00 PM EDT 05/21/2024 3:36 PM EDT Beverly Spears MD HEMATOLOGY ORDERABL ES [facility] [place] [place] [address] * IR Tunneled Central Venous Access Non-Dialysis (05/21/2024 12:11 PM EDT) Anatomical Region Laterality Modality Chest, Vascular X-Ray Angiograph y Narrative 05/21/2024 5:12 PM EDT Table formatting from the original result was not included. Images from the original result were not included. IR PROCEDURE NOTE Procedure: Tunneled central venous catheter placement. Indication for Procedure: Per Ave Saldaan Allyssa Kolb is a 69 y.o. male with PMH of CKD, DM, COPD, A.fib, admitted for RLE cellulitis and osteomyelitis s/p 2ng toe amputation requiring fpc IV antibiotic administration who presents to Interventional Radiology to undergo tunneled non-HD central venous catheter implant (single lumen). Patient is also being monitored for possible lower GIB - Xarelto is being held at present. H/H 10.5/23.6. Tachycardic to 105 overnight, o/w hemodynamically stable on RA, and patient is consentable. Procedure events and findings: After obtaining informed consent patient was positioned supine on procedure table. ??Right neck base and upper chest prepped and draped, maximum sterile barrier technique was used throughout. Local anesthesia provided with 1% lidocaine and 1% lidocaine with epinephrine. Due to the painful nature of the procedure, patient received split doses of intravenous fentanyl and versed from the IR nurse while pulse, pressure, and oxygen saturation were continuously monitored. Right IJ accessed with micropuncture technique under U/S guidance and a 4Fr sheath placed. ??[address] injection compatible single lumen catheter was tunneled from upper chest to neck entry site. ??Guidewire was used to determine the length of catheter needed and catheter cut to length. ??4Fr sheath exchanged over guide wire for peel away sheath. ??Catheter placed via peel away sheath with tip positioned in the right atrium under fluoroscopic guidance. ??Catheter flushed and aspirated readily. ??Neck incision closed with tissue adhesive and the catheter was secured with a suture. Medications: Fentanyl 100 mcg IV, Versed 2 mg IV, 1% Lidocaine <10ccs subcutaneous. Est Blood Loss: <5cc. Complications: ??No immediate. Impression: Placement of single-lumen 8 Fr tunneled central venous catheter via right IJ, catheter tip in right atrium, catheter ready for use. Resident/Fellow: None. Attending: I, Dr. Flowers performed this procedure. ?? I was present during the intraservice time as documented by the IR Nurse. ? Beverly Spears MD IMG IR ORDERABLES * (ABNORMAL) CRP, acute inflammation (05/21/2024 4:58 AM EDT) Only the most recent of2 resultswithin the time period is included. C-Reactive Protein 14.1(H) <=4.9 mg/L 05/21/2024 10:05 AM EDT [facility] Blood VENOUS BLOOD SPECIMEN / Unknown IP Care Team Draw / Unknown 05/21/2024 4:58 AM EDT 05/21/2024 5:17 AM EDT Beverly Spears MD CHEMISTRY ORDERABLE S Performing Organization Address City/State/[facility] Co de Phone Number [facility] [place] [address] * US Retroperitoneal Complete (05/20/2024 10:36 AM EDT) WORKSTATION ID [id number] [facility] Anatomical Region Laterality Modality Abdomen Ultrasound 05/20/2024 10:3 4 AM EDT Impressions 05/20/2024 11:37 AM EDT 1. ??Very limited exam secondary to patient body habitus and overlying bowel gas. 2. ??No hydronephrosis on either side. Within the limitations of the exam, no stones seen. 3. ??Normal bladder contour. Estimated bladder volume at time of scan 446 cc. I have personally reviewed the image(s) and the resident's interpretation and agree with the findings, Teofilo Ruiz MD at 05/20/2024 11:30 AM Thank you for letting us participate in the care of this patient. If you are a health care provider and have any questions regarding this report, please contact the number above. For patients who have questions, please contact the health care transition manager that requested your imaging first. ?Teofilo Ruiz, Staff Physician Electronically Signed Final Report ?? 05/20/2024 11:36 am Narrative 05/20/2024 11:37 AM EDT Renal ? (Signed Final 05/20/2024 11:36 am) PATIENT INFO: ID #: ? [id number] ?: ??[birth year] (69 yrs)(Jennifer) Name: ? AVE KOLB ? Visit Date: 05/20/2024 10:34 am PERFORMED BY: Attending: ?Joseph SOTOMAYOR, Teofilo Flores Resident: ? Kuldeep SOTOMAYOR, Trinidad Kyle Performed By: ? Lulu Shin RDMS Referred By: ?BEVERLY SPEARS Location: ? [place] SERVICE(S) PROVIDED: URETRO - Retroperitoneal Complete - [id number] ? [id number] INDICATIONS: CKD, increase BUN TECHNIQUE/SCAN QUALITY: Scan Quality: ?? Scan is technically limited due to body habitus ? and bowel gas COMPARISON: CT scan: 05/09/24 RIGHT KIDNEY: Size (cm) ?L: ??13.4 Cortical Thickness: ?Normal Cortical Echogenicity: ?? Normal Hydronephrosis: ?No sonographic evidence Comment: ?Simple cyst inferior: 2.3cm LEFT KIDNEY: Size (cm) ?L: ??10.2 Cortical Thickness: ?Normal Cortical Echogenicity: ?? Normal Hydronephrosis: ?No sonographic evidence URINARY BLADDER: Pre-void (cm) ? L: ??11.5 ?AP: ??7.4 ? TV: ??10.0 Vol (ml): ?445.6 Comment: ?Partially distended, normal contour. Procedure Note Teofilo Ruiz MD - 05/20/2024 Renal (Signed Final 05/20/2024 11:36 am) PATIENT INFO: ID #: [id number] : [birth year] (69 yrs)(M) Name: AVE KOLB Visit Date: 05/20/2024 10:34 am PERFORMED BY: Attending: Teofilo Ruiz MD Resident: Trinidad Light MD Performed By: Lulu Shin RDMS Referred By: BEVERLY SPEARS Location: [place] SERVICE(S) PROVIDED: URETRO - Retroperitoneal Complete - [id number] INDICATIONS: CKD, increase BUN TECHNIQUE/SCAN QUALITY: Scan Quality: Scan is technically limited due to body habitus and bowel gas COMPARISON: CT scan: 05/09/24 RIGHT KIDNEY: Size (cm) L: 13.4 Cortical Thickness: Normal Cortical Echogenicity: Normal Hydronephrosis: No sonographic evidence Comment: Simple cyst inferior: 2.3cm LEFT KIDNEY: Size (cm) L: 10.2 Cortical Thickness: Normal Cortical Echogenicity: Normal Hydronephrosis: No sonographic evidence URINARY BLADDER: Pre-void (cm) L: 11.5 AP: 7.4 TV: 10.0 Vol (ml): 445.6 Comment: Partially distended, normal contour. IMPRESSION 1. Very limited exam secondary to patient body habitus and overlying bowel gas. 2. No hydronephrosis on either side. Within the limitations of the exam, no stones seen. 3. Normal bladder contour. Estimated bladder volume at time of scan 446 cc. I have personally reviewed the image(s) and the resident's interpretation and agree with the findings, Teofilo Ruiz MD at 05/20/2024 11:30 AM Thank you for letting us participate in the care of this patient. If you are a health care provider and have any questions regarding this report, please contact the number above. For patients who have questions, please contact the health care transition manager that requested your imaging first. Teofilo Ruiz, Staff Physician Electronically Signed Final Report 05/20/2024 11:36 am Beverly Spears MD IMG US GEN ORDERABL ES * PTH (05/19/2024 5:09 PM EDT) Parathyroid Hormone 27 15 - 65 pg/mL 05/19/2024 6:15 PM EDT [facility] Blood VENOUS BLOOD SPECIMEN / Unknown IP Care Team Draw / Unknown 05/19/2024 5:09 PM EDT 05/19/2024 5:43 PM EDT Beverly Spears MD CHEMISTRY ORDERABLE S [facility] [place] [address] * (ABNORMAL) Iron and TIBC (05/19/2024 5:09 PM EDT) Iron 58 45 - 160 mcg/dL 05/19/2024 6:56 PM EDT [facility] Unsaturated Iron Binding Capacity 143 110 - 370 mcg/dL 05/19/2024 6:56 PM EDT [facility] TIBC 201(L) 250 - 450 mcg/dL 05/19/2024 6:56 PM EDT [facility] Iron Saturation 29 20 - 50 % 6:56 PM EDT [facility] Blood VENOUS BLOOD SPECIMEN / Unknown IP Care Team Draw / Unknown 05/19/2024 5:09 PM EDT 05/19/2024 5:43 PM EDT Beverly Spears MD CHEMISTRY ORDERABLE S Performing Organization Address City/[facility]/ZIP Co de Phone Number [facility] [place] [address] * Ferritin (05/19/2024 5:08 PM EDT) Ferritin 191 31 - 409 ng/ml 05/19/2024 6:24 PM EDT [facility] Blood VENOUS BLOOD SPECIMEN / Unknown IP Care Team Draw / Unknown 05/19/2024 5:08 PM EDT 05/19/2024 5:43 PM EDT Beverly Spears MD CHEMISTRY ORDERABLE S Performing Organization Address [facility] Co de Phone Number [facility] [place] [address] * C diff Screen (05/18/2024 11:31 AM EDT) C Diff Interp Negative Negative 05/18/2024 3:02 PM EDT [facility] Comment:Clostridioides diffi cile is not present in the specimen. If patient is having diarrhea suspected to be from an infectious cause, then Soap & Water Contact Precautions are still required. If patient is having diarrhea with no suspected infectious cause use standard precautions. C Diff PCR Negative Negative, Indeterminate 05/18/2024 3:02 PM EDT [facility] Stool STOOL SPECIMEN / Unknown Non Blood Collection / Unknown 05/18/2024 11:31 AM EDT 05/18/2024 12:09 PM EDT Beverly Spears MD MICROBIOLOGY - GENE RAL ORDERABLES [facility] [place] [address] * C Diff PCR (05/18/2024 11:31 AM EDT) Stool STOOL SPECIMEN / Unknown Non Blood Collection / Unknown 05/18/2024 11:31 AM EDT 05/18/2024 12:09 PM EDT Beverly Spears MD MICROBIOLOGY - GENE RAL ORDERABLES Performing Organization Address City/[facility]/ZIP Co de Phone Number [facility] [place] [address] * Electrolytes, urine, random (05/18/2024 8:57 AM EDT) Sodium, Urine 50 mMol/L 05/18/2024 12:09 PM EDT [facility] Potassium, Urine 13 mMol/L 05/18/2024 12:09 PM EDT [facility] Chloride, Urine 35 mMol/L 05/18/2024 12:09 PM EDT [facility] Urine URINE SPECIMEN / Unknown Non Blood Collection / Unknown 05/18/2024 8:57 AM EDT 05/18/2024 9:07 AM EDT Beverly Spears MD URINE ORDERABLES Performing Organization Address [facility] Co de Phone Number [facility] [place] [address] * Creatinine, urine, random (05/18/2024 8:57 AM EDT) Only the most recent of2 resultswithin the time period is included. Creatinine, Urine 44 mg/dL 05/18/2024 9:36 AM EDT [facility] Urine URINE SPECIMEN / Unknown Non Blood Collection / Unknown 05/18/2024 8:57 AM EDT 05/18/2024 9:07 AM EDT Beverly Spears MD URINE ORDERABLES Performing Organization Address City/[facility]/ZIP Co de Phone Number [facility] [place] [address] * Vancomycin Level, Random (05/17/2024 5:49 AM EDT) Only the most recent of8 resultswithin the time period is included. Vancomycin, Random 22.4 mg/L 2023 6:58 AM EDT [facility] Comment:This level is for de termination of the patient's vancomycin segj-jvwoi-wra-curve (AUC) value. Contact the inpatient pharmacy for interpretation. Blood IP Care Team w / Nick 05/17/2024 5:49 AM EDT 05/17/2024 6:13 AM EDT Treva Diaz MD CHEMISTRY ORDERABL ES Performing Organization Address [facility] Co de Phone Number [facility] [place] [address] * POCT Glucose (05/16/2024 11:46 PM EDT) Only the most recent of38 resultswithin the time period is included. [facility] Glucose, POC 148 65 - 199 mg/dL [facility] Comment: Supplemental ranges: <140 mg/dL before meals <180 mg/dL all other times of the day Blood 05/16/2024 11:4 6 PM EDT 05/16/2024 11:46 PM EDT Treva Diaz MD POINT OF CARE TEST ORDERABLES Performing Organization Address [facility]/ZIP Co de Phone Number [facility] [place] [address] * (ABNORMAL) Differential, Automated (05/16/2024 5:14 AM EDT) Only the most recent of7 resultswithin the time period is included. Neutrophil % 79.4 % [facility] Neutrophil Absolute 9.22(H) 1.70 - 6.10 x10(3)/mc L [facility] Lymph % 6.6 % [facility] Lymphocytes Abs 0.8(L) 0.9 - 3.2 x10(3)/mc L [facility] Monocyte % 9.5 % [facility] Monocyte Abs 1.1(H) 0.3 - 0.9 x10(3)/mc L [facility] Eos % 0.0 % [facility] Eosinophils Abs 0.0 0.0 - 0.4 x10(3)/mc L [facility] Basophil % 0.2 % [facility] Baso Absolute 0.0 0.0 - 0.1 x10(3)/ L [facility] Immature Gran % 4.30 % [facility] Comment: Immature granulocytes(IG's)percentage and absolute count will include metamyelocytes, myelocytes, and promyelocytes. Blood smears from CBCs yielding IG's will be scanned manually for concordance. If this scan disagrees with the automated IG or if promyelocytes are noted, a manual differential will be performed. Immature Gran Absolute 0.50(H) 0.00 - 0.04 x10(3)/ L [facility] Blood 05/16/2024 5:14 AM EDT 05/16/2024 5:38 AM EDT Narrative Resulting Agency Comment Spec In Lab Carlotta Davis MD HEMATOLOGY OR DERABLES Performing Organization Address City/State/[facility] Co de Phone Number [facility] [place] [address] * MRSA PCR Screen ([facility]D/[facility]) (05/15/2024 4:15 PM EDT) MRSA PCR Negative Negative [facility] MRSA (Interp) Methicillin-resist ant Staphylococcus aureus (MRSA) is NOT DETECTED The MRSA target DNA sequences (mec and SCC) were not detected within the acceptable ranges using the Xpert MRSA NxG on the GeneXpert Dx System ([employer]). This suggests the absence of MRSA in the patient specimen submitted for testing. This test is cleared by the U.S. Food and Drug Administration for clinical use and its performance characteristics have been verified by the [facility] at [facility]. This result does not rule out the presence of any other organisms. Rare false negative results may occur if MRSA is present at low concentrations with much higher concentrations of other organisms including MRSE or S. aureus with an empty SCC cassette. [facility] Comment: [VERIFIED DATE]05.15.24 Verified By:Lupe Jensen (Electronic Signature) Nasopharyngeal Swab 05/15/20 4:15 PM EDT 05/15/2024 6:28 PM EDT Comment:Specimen Type->Nasop haryngeal Swab Narrative Resulting Agency Comment Spec In Lab Treva Diaz MD MOLECULAR ORDERABL ES Performing Organization Address [facility]/ZIP Co de Phone [place] [address] * Scan Doc: Telemetry Strips (05/14/2024 12:47 PM EDT) Narrative 05/14/2024 12:47 PM EDT Ordered by an unspecified provider. Scanning Provider MEDIA MGR SCAN EXT O RDR/RSLT * Anaerobic Culture (05/14/2024 11:33 AM EDT) Anaerobic Culture No anaerobic organisms isolated [facility] Toe 05/14/2024 11:3 3 AM EDT 05/14/2024 12:33 PM EDT Comment:PROXIMAL RIGHT 2ND T OE Narrative Resulting Agency Comment Spec In Lab Gennaro Meyers MD MICROBIOLOGY - GENE RAL ORDERABLES Performing Organization Address [facility]/[place] [address] * (ABNORMAL) Tissue culture (05/14/2024 11:33 AM EDT) Tissue Culture One colony of Coagulase negative Staphylococcus species(A) [facility] Gram Stain Few Neutrophils seen Rare Gram Positive Cocci in pairs seen Results called to and read back by Dr. Mihaela Galvan ??05/14/24 14:57:00 (A) [facility] Organism Coagulase negative Staphylococcus species(A) [facility] Organism Gram Positive Cocci in pairs(A) [facility] Toe 05/14/2024 11:3 3 AM EDT 05/14/2024 12:33 PM EDT Comment:PROXIMAL RIGHT 2ND T OE Narrative Resulting Agency Comment Spec In Lab Organism Antibiotic Method Susceptibility Coagulase Negative Staphylococcus species Ciprofloxacin MICROSCAN METHOD Sensitive Coagulase Negative Staphylococcus species Clindamycin MICROSCAN METHOD Sensitive Coagulase Negative Staphylococcus species Erythromycin MICROSCAN METHOD Sensitive Coagulase Negative Staphylococcus species Gentamicin MICROSCAN METHOD Sensitive Comment:Gentamicin i s not appropriate for Sandoval-therapy. Coagulase Negative Staphylococcus species Levofloxacin MICROSCAN METHOD Sensitive Coagulase Negative Staphylococcus species Oxacillin MICROSCAN METHOD Sensitive Comment: Oxacillin (methicillin) susceptibility is a surrogate for the oral and parenteral cephalosporins, beta-lactam combination agents (amoxicillin-clavulanate, ampicillin-sulbactam and piperacillin-tazobactam) and carbapenem agents. ??It is NOT a surrogate for penicillin, ampicillin or piperacillin susceptibility. Coagulase Negative Staphylococcus species Tetracycline MICROSCAN METHOD Sensitive Coagulase Negative Staphylococcus species Trimethoprim/Sulfa MICROSCAN METHOD Sensitive Coagulase Negative Staphylococcus species Vancomycin MICROSCAN METHOD Sensitive Gennaro Meyers MD MICROBIOLOGY - [facility] ORDERABLES Performing Organization Address City/State/[facility] Co de Phone Number [facility] [place] [place] [address] * Surgical Pathology Report (05/14/2024 11:32 AM EDT) Surgical Pathology Report [id number] ? Location: L4WD; 0421; A The signing pathologist has (i) examined the relevant preparation(s) for the specimen(s) and (ii) rendered or confirmed the diagnosis(es). . ?Surgical Pathology DIAGNOSIS A. Right foot, 2nd toe, amputation: - ??Skin and soft tissue with ulceration and scarring. - ??Bone with reactive changes and mild chronic inflammation. Electronically signed by: ?Jacob Shelton MD, Shima Verified: ??05/20/2024 11:25 Performed at: ??-[facility] [place], [place] [address] Yarn Sorter: Polly Barnhart MD, FCAP, ??CLIA Certificate: [id number] SPECIMEN(S) SUBMITTED A - RIGHT 2ND TOE, excision (1) CLINICAL INFORMATION Right second toe osteomyelitis SPECIMEN PROCESSING A - Labeled/Fixative: Right second toe, fresh. 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 Lesion: There is a 1.8 x 1.8 x 0.9 cm crook-pink polypoid lesion with a surfacing crook- black granular scab on the dorsal aspect of the digit, at the base of the nail bed. The lesion is 1.7 cm from the nearest skin and soft tissue resection margin. Nail: Present (0.7 x 0.6 x 0.1 cm), crook-yellow. Skin: Crook-wang with underlying edema. Bone: ??Crook-yellow, firm. ??No areas of softening identified. ??The overlying lesion does not appear to extend to the bone. Sections/Processi ng: Blocks submitted for decalcification: A1-A2. [employer] sections in 2 cassettes as follows: ?A1-A2: ??Longitudinal section of digit ??cmk [facility] 05/14/2024 11:3 2 AM EDT Gennaro Meyers MD PATHOLOGY/CYTOLOGY ORDERABLES [facility] [place] [address] * Specimen to Pathology (05/14/2024 11:32 AM EDT) AP Specimen 05/14/2024 11:3 2 AM EDT 05/14/2024 11:32 AM EDT Narrative [facility] - 05/14/2024 11:32 AM EDT Specimen requisition ordered. ??Separate Pathology report to follow Treva Diaz MD PATHOLOGY/CYTOLOGY ORDERABLES Performing Organization Address City/[facility]/[place] [address] * Scan, Peripheral Blood (05/13/2024 5:29 AM EDT) Only the most recent of2 resultswithin the time period is included. [facility] Plat estimate Normal [facility] RBC Morphology Abnormal [facility] Sofía Cells 1-5 /HPF [facility] Plat, Giant Less than 1 /HPF [facility] Blood 05/13/2024 5:29 AM EDT 05/13/2024 5:49 AM EDT Narrative Resulting Agency Comment Spec In Lab Carlotta Davis MD HEMATOLOGY OR DERABLES Performing Organization Address [facility] Co de Phone Number [facility] [place] [place] [address] * Duplex for DVT, Leg, Unilat (05/12/2024 10:19 AM EDT) Pathologist [facility] [place] VB Text Report Department: Vascular Surgery Lab Patient: [id number] (AVE KOLB) CPT: [id number] Referring Physician: JULIUS COOK ?? Phone: Indications: Edema ? DVT Findings: RIGHT: Patent common femoral vein and popliteal vein with spontaneous, respirophasic Doppler waveforms that respond normally to augmentation maneuvers. The common femoral vein, saphenofemoral junction, femoral vein through the thigh and popliteal vein are fully compressible. Posterior tibial and peroneal veins are patent but were not adequately visualized to exclude non-occlusive thrombus. Interpretation: RIGHT: No evidence of lower extremity deep venous thrombosis. Posterior tibial and peroneal veins are patent but were not adequately visualized to exclude non-occlusive thrombus. Comparison: ??No previous study in our vascular lab database for comparison. Electronically Signed by: PADDY HARRY on 2024-05-14 12:46:26 PM [facility] VB Text Report End of Report [facility] 05/12/2024 10:1 9 AM EDT Julius Cook MD VASCULAR ORDERABLE S Performing Organization Address [facility] Co de Phone Number [facility] * (ABNORMAL) Sedimentation rate (05/12/2024 4:45 AM EDT) Sedimentation Rate Automated >119(H) 3 - 46 mm/hr [facility] Comment: Effective September 24, 2019 new capillary photometric technology has resulted in a change in reference ranges. It is recommended that each ESR result be reviewed with its own age appropriate reference range. Blood Venous Draw / Unknown 05/12/2024 4:45 AM EDT 05/12/2024 5:06 AM EDT Narrative Resulting Agency Comment Spec In Lab Juan José Harrison MD HEMATOLOGY ORDERABLE S Performing Organization Address [facility] de Phone Number [facility] [place] [phone] * ANGY, legs, multiple levels (05/12/2024 3:22 AM EDT) VB Text Report Department: Vascular Surgery Lab Patient: [id number] (AVE KOLB) CPT: [id number] Referring Physician: ARELY DICKSON ?? Phone: Indications: Right lower extremity wound ? peripheral perfusion Diabetes mellitus: Yes Findings: Right ?Pressure (mm Hg) ?? ANGY ??Waveform ?? Brachial Artery ?116 ? Common Femoral Artery ?Biphasic ?? Popliteal Artery ? Biphasic ?? Dorsalis Pedis (Ankle) Artery ?127 ? 1.02 ??Biphasic ?? Posterior Tibial (Ankle) Artery ??119 ? 0.95 ??Biphasic ?? Left ? Pressure (mm Hg) ?? ANGY ??Waveform ?TBI ?? Brachial Artery ?125 ? Common Femoral Artery ?Triphasic ? Popliteal Artery ? Triphasic ? Dorsalis Pedis (Ankle) Artery ?138 ? 1.10 ??Triphasic ? Posterior Tibial (Ankle) Artery ??143 ? 1.14 ??Triphasic ? Great Toe ?107 ?0.86 ?? Interpretation: RIGHT: No significant lower extremity arterial occlusive disease identified at rest. Normal ankle/brachial pressure ratios and ankle Doppler waveforms. Unable to obtain a toe pressure due to bandaging. LEFT: No significant lower extremity arterial occlusive disease identified at rest. Normal ankle/brachial pressure ratios and ankle Doppler waveforms. Comparison: ??No previous study in our vascular lab database for comparison. Electronically Signed by: PADDY HARRY on 2024-05-14 01:01:04 PM [facility] VB Text Report End of Report [facility] 05/12/2024 3:22 AM EDT Julius Cook MD VASCULAR ORDERABLE S [facility] * Lactate, whole blood, [place] [place] (05/10/2024 6:55 AM EDT) Only the most recent of2 resultswithin the time period is included. Lactate WB 1.7 0.5 - 2.2 mmol/L [facility] Blood 05/10/2024 6:55 AM EDT 05/10/2024 7:00 AM EDT Narrative Resulting Agency Comment Spec In Lab Arely Dickson MD CHEMISTRY ORDERABLES Performing Organization Address [facility] Co de Phone Number [facility] [place] [address] * CK (05/10/2024 6:55 AM EDT) Creatine Kinase 58 0 - 200 unit/L [facility] Blood Venous Draw / Unknown 05/10/2024 6:55 AM EDT 05/10/2024 7:41 AM EDT Narrative Resulting Agency Comment Spec In Lab Emmanuel Corey DO CHEMISTRY ORDERABLES Performing Organization Address City/[facility]/ZIP Co de Phone Number [facility] [place] [address] * MRI Foot wwo Contrast Right (05/10/2024 5:51 AM EDT) WORKSTATION ID [id number] [facility] Anatomical Region Laterality Modality Foot Right Magnetic Resonan ce Impressions 05/10/2024 12:56 PM EDT 1. ??Soft tissue irregularity of the tip of the 2nd toe is presumed to correspond to focal soft tissue injury or an open wound. ??Recommend correlation with physical examination. ??No rim-enhancing soft tissue abscess. 2. ??Tiny 3 mm focus of osteitis of the distal tuft of the 2nd toe. 3. ??No MR evidence of tenosynovitis. 4. 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 Thank you for letting us participate in the care of this patient. ??If you are a health care provider and have any questions regarding this report, please contact the number below. ??For patients who have questions please contact the health care transition manager that requested your imaging first. ? Narrative 05/10/2024 12:56 PM EDT EXAMINATION: MRI FOOT WWO CONTRAST RIGHT CLINICAL HISTORY: 69yo M w/ DM, sepsis 2/2 right LE cellulitis & rt foot wound, c/f osteo (as entered by ordering provider in the order requisition) TECHNIQUE: MR of the right forefoot was performed with and without IV contrast. ??Sequences include long axis TI, long axis TII with fat saturated, long axis vibe with fat saturation pre and postcontrast, sagittal STIR, sagittal vibe with fat saturation postcontrast, short axis TI, short axis vibe with fat saturation postcontrast. ??The sagittal sequences are degraded by patient motion. COMPARISON: None FINDINGS: There is soft tissue irregularity at the tip of the 2nd toe, presumably corresponding to a site of soft tissue injury or open wound. ??There is no rim-enhancing soft tissue fluid collection. There is bony irregularity of the distal tuft of the 2nd toe with a 3 mm T1 hypointense focus (series 4, image 7), consistent with osteomyelitis. ??No other sites of T1 hypointense bone marrow signal alteration. No acute fracture. No fluid distention of the metatarsophalangeal joints or the toe interphalangeal joints. Visualized segments of the flexor and extensor tendons are intact. ??No fluid distention of the flexor or extensor tendon sheaths. There is diffuse fatty atrophy of all muscles of the forefoot, consistent with chronic denervation injury. Procedure Note Trinidad Mota MD - 05/10/2024 EXAMINATION: MRI FOOT WWO CONTRAST RIGHT CLINICAL HISTORY: 69yo M w/ DM, sepsis 2/2 right LE cellulitis & rt foot wound, c/f osteo (as entered by ordering provider in the orderrequisition) TECHNIQUE: MR of the right forefoot was performed with and without IV contrast.Sequences include long axis TI, long axis TII with fat saturated, long axis vibewith fat saturation pre and postcontrast, sagittal STIR, sagittal vibe with fat saturation postcontrast, short axis TI, short axis vibe with fatsaturation postcontrast. The sagittal sequences are degraded by patient motion. COMPARISON: None FINDINGS: There is soft tissue irregularity at the tip of the 2nd toe, presumably corresponding to a site of soft tissue injury or open wound. There isno rim-enhancing soft tissue fluid collection. There is bony irregularity of the distal tuft of the 2nd toe with a 3 mmT1 hypointense focus (series 4, image 7), consistent with osteomyelitis. Noother sites of T1 hypointense bone marrow signal alteration. No acute fracture. No fluid distention of the metatarsophalangeal joints or the toeinterphalangeal joints. Visualized segments of the flexor and extensor tendons are intact. Nofluid distention of the flexor or extensor tendon sheaths. There is diffuse fatty atrophy of all muscles of the forefoot, consistentwith chronic denervation injury. IMPRESSION 1. Soft tissue irregularity of the tip of the 2nd toe is presumed tocorrespond to focal soft tissue injury or an open wound. Recommend correlationwith physical examination. No rim-enhancing soft tissue abscess. 2. Tiny 3 mm focus of osteitis of the distal tuft of the 2nd toe. 3. No MR evidence of tenosynovitis. 4. 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 Thank you for letting us participate in the care of this patient. If youare a health care provider and have any questions regarding this report,please contact the number below. For patients who have questions please contactthe health care transition manager that requested your imaging first. Arely Dickson MD IMG MRI ORDERABLES * Urea nitrogen, urine, random (05/10/2024 4:15 AM EDT) Urea Nitrogen, Urine 580 mg/dL [facility] Urine 05/10/2024 4:15 AM EDT 05/10/2024 4:23 AM EDT Narrative Resulting Agency Comment Spec In Lab Arely Dickson MD URINE ORDERABLES Performing Organization Address [facility] Co de Phone Number [facility] [place] [address] * Sodium, urine, random (05/10/2024 4:15 AM EDT) Sodium, Urine <20 mmol/L [facility] Urine 05/10/2024 4:15 AM EDT 05/10/2024 4:23 AM EDT Narrative Resulting Agency Comment Spec In Lab Arely Dickson MD URINE ORDERABLES Performing Organization Address [facility]/ZIP Co de Phone Number [facility] [place] [address] * (ABNORMAL) Skin/Superficial Wound Culture Toe (05/10/2024 2:56 AM EDT) Skin/Superfic ial Wound Culture Rare mixed bacterial morphotypes suggestive of normal cutaneous armani including Rare Gram Negative Rods (A) [facility] Gram Stain Many Neutrophils seen Few Gram Positive Cocci seen (A) [facility] Organism Gram Negative Rods(A) [facility] Organism Gram Positive Cocci(A) [facility] Superficial Wound TOE STRUCTURE / Unknown 05/10/2024 2:56 AM EDT 05/10/2024 5:18 AM EDT Comment:Right toe wound Narrative Resulting Agency Comment Spec In Lab Arely Dickson MD MICROBIOLOGY - GENER AL ORDERABLES [facility] [place] [place] [address] * (ABNORMAL) Urinalysis without microscopic (05/10/2024 2:42 AM EDT) Glucose, Urine Dipstick Negative Negative mg/dL [facility] Protein, Urine Dipstick 30(A) Negative mg/dL [facility] Bilirubin, Urine Dipstick Negative Negative mg/dL [facility] Comment: Clinical correlation required for positive Urine Bilirubin results as false positive may occur with some drugs and drug related products. If a false positive is suspected a serum total bilirubin should be considered if clinically indicated. Urobilinogen, Urine Dipstick Normal Normal mg/dL [facility] pH, Urn (dipstick) 5.5 5.0 - 8.0 [facility] Blood, Urine Dipstick Large(A) Negative mg/dL [facility] Ketone, Urine Dipstick Negative Negative mg/dL [facility] Nitrite, Urine Dipstick Negative Negative [facility] Leukocytes, Urine Dipstick Small(A) Negative [facility] Appearance, Urine Dipstick Cloudy(A) Clear [facility] Specific [place] Urine Automated 1.017 1.005 - 1.030 [facility] Color, Urine Dipstick [place](A) Yellow [facility] Urine 05/10/2024 2:42 AM EDT 05/10/2024 2:57 AM EDT Narrative Resulting Agency Comment Spec In Lab Arely Dickson MD URINE ORDERABLES Performing Organization Address [facility] Co de Phone Number [facility] [place] [address] * EKG 12 Lead (05/10/2024 2:38 AM EDT) Ventricular rate 107 BPM MUSE SYSTEM QRS Duration 114 ms MUSE SYSTEM Q-T Interval 324 ms MUSE SYSTEM QTC Calculated (Bezet) 432 ms MUSE SYSTEM Calculated R [place] -46 degrees MUSE SYSTEM Calculated T [place] 47 degrees MUSE SYSTEM INTERPRETATION Atrial fibrillation Left axis deviation Abnormal ECG No previous ECGs available Confirmed by MD ARVIND, CHRISTIAN ([id number]) on 05/11/2024 3:17:18 PM MUSE SYSTEM 05/10/2024 2:38 AM EDT 05/11/2024 3:17 PM EDT Unknown ECG ORDERABLES Performing Organization Address [facility] de Phone Number MUSE SYSTEM * XR Chest One View (05/10/2024 2:37 AM EDT) WORKSTATION ID [id number] RAD Anatomical Region Laterality Modality Chest N/A Digital Radiogra phy Impressions 05/10/2024 3:27 AM EDT Bibasilar atelectasis. Thank you for letting us participate in the care of this patient. ??If you are a health care provider and have any questions regarding this report, please contact the number below. ??For patients who have questions please contact the health care transition manager that requested your imaging first. ? Narrative 05/10/2024 3:27 AM EDT EXAMINATION: XR CHEST ONE VIEW CLINICAL HISTORY: 69yo M, hypervolemic, c/f pulm edema TECHNIQUE: 1 view of the chest . One image. COMPARISON: CT chest abdomen pelvis 2024. FINDINGS: Trachea, mainstem bronchi, new mediastinal silhouette, corinne, and pulmonary vascular markings are within normal limits. Bibasilar atelectasis. No pulmonary consolidation, pleural effusion or pneumothorax. Degenerative changes noted in the left AC joint. Normal upper abdomen. Procedure Note Eliana Ca MD - 05/10/2024 EXAMINATION: XR CHEST ONE VIEW CLINICAL HISTORY: 69yo M, hypervolemic, c/f pulm edema TECHNIQUE: 1 view of the chest . One image. COMPARISON: CT chest abdomen pelvis 2024. FINDINGS: Trachea, mainstem bronchi, new mediastinal silhouette, corinne, andpulmonary vascular markings are within normal limits. Bibasilar atelectasis. Nopulmonary consolidation, pleural effusion or pneumothorax. Degenerative changesnoted in the left AC joint. Normal upper abdomen. IMPRESSION Bibasilar atelectasis. Thank you for letting us participate in the care of this patient. If youare a health care provider and have any questions regarding this report,please contact the number below. For patients who have questions please contactthe health care transition manager that requested your imaging first. Arely Dickson MD IMG DX ORDERABLES * Blood culture (05/10/2024 2:32 AM EDT) Blood Culture No growth at 5 days. [facility] Blood STRUCTURE OF RIGHT HAND / Unknown 05/10/2024 2:32 AM EDT 05/10/2024 4:17 AM EDT Narrative Resulting Agency Comment Spec In Lab Arely Dickson MD MICROBIOLOGY - BLOOD ORDERABLES Performing Organization Address City/[facility]/ZIP Co de Phone Number [facility] [place] [address] * Type and Screen Validity (05/10/2024 2:20 AM EDT) T&S only valid at [facility] Comment:This Type and Screen result is only valid at the [facility] Blood 05/10/2024 2:20 AM EDT 05/10/2024 2:49 AM EDT Narrative Resulting Agency Comment Spec In Lab Anita Camacho MD BLOOD BANK LAB ORDER ANGELIQUE Performing Organization Address [facility]/ZIP Co de Phone Number [facility] [place] [address] * ABORH Recheck Status (05/10/2024 2:20 AM EDT) ABORH Recheck Order Order Placed [facility] ABORH Type Recheck Completed [facility] Blood 05/10/2024 2:20 AM EDT 05/10/2024 2:49 AM EDT Narrative Resulting Agency Comment Spec In Lab Anita Camacho MD BLOOD BANK LAB ORDER ANGELIQUE Performing Organization Address City/[facility]/ZIP Co de Phone Number [facility] [place] [address] * (ABNORMAL) Prothrombin Time (05/10/2024 2:20 AM EDT) Prothrombin Time 27.9(H) 9.4 - 12.5 sec [facility] International Normalization Ratio 2.5 [facility] Comment: An INR <2.0 indicates adequate procoagulant activity for hemostasis in most patients without underlying bleeding disorders, though the INR may not adequately reflect hemostatic capacity in patients with liver disease and synthetic impairment. The recommended target INR range for therapeutic anticoagulation is 2.0 ? 3.0 for most applications, though lower and higher ranges may be appropriate depending on clinical circumstances. Blood 05/10/2024 2:20 AM EDT 05/10/2024 2:36 AM EDT Narrative Resulting Agency Comment Spec In Lab Arely Dickson MD HEMATOLOGY ORDERABLE S Performing Organization Address City/[facility]/ZIP Co de Phone Number [facility] [place] [address] * (ABNORMAL) Hemoglobin A1c (05/10/2024 2:20 AM EDT) Hemoglobin A1c 5.9(H) 4.3 - 5.6 % [facility] Comment: Reference Range: 4.3 - 5.6% 5.7 - 6.4% - Increased Risk of Developing Diabetes Mellitus >= 6.5% - Consistent with diagnosis of Diabetes Mellitus In the absence of hyperglycemia (i.e. plasma glucose > 200 mg/dL) or classic symptoms of hyperglycemia a repeat measurement of HbA1c should be performed on a separate sample to confirm the diagnosis. Diagnosis and Classification of Diabetes Mellitus, Diabetes Care 2013; 36: Suppl. 1, V92-97 Estimated Average Glucose See note mg/dL [facility] Comment: Estimated Average Glucose not appropriate for patients over 70 years of age. Blood 05/10/2024 2:20 AM EDT 05/10/2024 2:36 AM EDT Narrative Resulting Agency Comment Spec In Lab Arely Dickson MD CHEMISTRY ORDERABLES Performing Organization Address [facility] Co de Phone Number [facility] [place] [address] * Film Library- Storage Only CT Lower Extremity (2024 9:16 PM EDT) Narrative DH RAD - 2024 9:16 PM EDT This exam is auto-finalizing. It's purpose is for storage only. Arely Dickson MD IMG FILM LIBRARY ORD ERABLES [place], [place] * Film Library- Storage Only CT Chest Abdomen Pelvis (2024 9:16 PM EDT) Narrative RAD - 2024 9:16 PM EDT This exam is auto-finalizing. It's purpose is for storage only. Arely Dickson MD [facility] FILM LIBRARY ORD ERABLES [place], [place] from Last 3 Months Advance Directives * Attempt Cardiopulmonary Resuscitation - Inpatient (Latest Code Status on File) Date Activated Date Inactivated Comments 05/10/2024 2:17 AM 05/23/2024 6:20 PM Question Answer Comments Code Status decision made by: Patient Content of discussion: Full code Healthcare Agents on File Name Relationship Healthcare Agent Relationship Communication Eddie Kolb Son/[id number] Health Care Agent Care Teams Separator Tender Relationship Specialty Start Date End Date None None PCP - General 11/26/17
--- OUTSIDE RECORDS SUMMARY | 2024-06-03 15:22 | XMS_ITS | Encounter Summary ---
Author Organization [facility] [place] [address] Care Team Providers Care Blacksmith Helper Name Role Phone None Primary Care Provider Unavailabl e Encounter Details Date Type Department Care Team (Late st Contact Info) Description 05/26/2024 Telephone [place] [phone] Marina Mason RN Social History Tobacco Use Types Packs/Day Years Used Date Smoking Tobacco: Former Cigarettes 14 0.6 S tarted: 2023 Smokeless Tobacco: Never Alcohol Use Standard Drinks/Week Comments Yes 0 (1 standard drink = 0.6 oz pur e alcohol) 3-4 PER [facility] Inpatient Questions Answer Date Recorded Does [...] on file documented as of this encounter Miscellaneous Notes * Telephone Encounter - Marina Mason RN - 05/26/2024 2:51 PM EDTSummary: OPAT Infectious Disease/OPAT Program Telephone Note OPAT order: OPAT: Order / Recommendation for Post Discharge IV Antibiotic Management ID Diagnosis: 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 Faxed to [facility] on 05/26/24 at 1439 Fax confirmation on 05/26/24 at 1441 Documents faxed: OPAT order (see above) May f/ appointment schedule F/u: Weekly labs 06/03: ID DOWEL SANDER OPERATOR Lu Mason BS, RN, ACM-RN OPAT Program documented in this encounter Plan of Treatment Upcoming Encounters Date Type Department Care Team (Late st Contact Info) Description 06/10/2024 10:30 AM EDT Office [place] [phone] Elkin Garcia MD [facility] [place] [address] documented as of this encounter Visit Diagnoses Not on filedocumented in this encounter Care Teams Blacksmith Helper Relationship 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
--- OUTSIDE RECORDS SUMMARY | 2024-06-03 15:22 | XMS_ITS | Encounter Summary ---
[facility] [place] [address] Care Team Providers Care Lieutenant Governor Name Role Phone None Primary Care Provider Unavailabl e Encounter Details Date Type Department Care Team (Late st Contact Info) Description 05/30/2024 Telephone [place] [phone] Lu Mcfarland APRN [facility] DR [place] [address] Social History Tobacco Use Types Packs/Day Years Used Date Smoking Tobacco: Former Cigarettes 14 0.6 S tarted: 2023 Smokeless Tobacco: Never Alcohol Use Standard Drinks/Week Comments Yes 0 (1 standard drink = 0.6 oz pur e alcohol) 3-4 PER [facility] IPV Inpatient Questions Answer Date Recorded Does Anyone [...] encounter Miscellaneous Notes * Telephone Encounter - Lu Mcfarland APRN - 05/30/2024 12:30 PM EDT S: Mr. Knights' R foot site is healing well, it's looking better. 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 Projected end date for IV antibiotic therapy is 06/04/2024. Call to patient's rehab center in [facility] to inquire about recent abnormal lab work. Patient's CRP increased from 14.1 to 171 in five days. Per the unit nurse client manager, patient, has quite a bitof edema in both of his legs. His edema is much worse. He also states that patient is being treated for a sacral decubitus which could be causing the CRP increase. The facility has an MD and [employer] ESTATE SUBAGENT providing medical care to the patients and they are following him closely. Patient has an appointment in [place] 06/03/2024 for his EOT visit. Per patient's nurse, the patient is feeling well, eating well, offering no complaints. He is hemodynamically stable. O: Lab work: 05/23/2024 WBC = 12.66, Hb = 7.7, Plts = 370 BUN = 83, creatinine = 2.64 ALT = 42, AST = 18 CRP = 14.1 05/28/2024 WBC = 8.8, Hb = 7.1, Plts = 355 BUN = 67, creatinine = 3.3 ALT = 24, AST = 11 CRP = 171 A: Elevated CRP due to ? Etiology This does not sound like it has anything to do with patient's foot as per the facility staff reporthe is healing well, no redness, swelling, drainage. Possibly this is due to increased edema in patient's bilateral lower legs or sacral decubitus versus other P: Continue follow-up per the rehab with MD and [employer]AGENT EOT visit scheduled in ID next week Repeat lab work early next week: CBC w/diff, CMP, and CRP Lu Mcfarland APRN, Infectious Disease 05/30/2024 12:30 PM documented in this encounter Plan of Treatment Upcoming Encounters Date Type Department Care Team (Late st Contact Info) Description 06/10/2024 10:30 AM EDT Office [place] [phone] Elkin Garcia MD [facility] DR ORTHOPAED[place] [address] documented as of this encounter Visit Diagnoses Not on filedocumented in this encounter Care Teams Lieutenant Governor Relationship 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
--- OUTSIDE RECORDS SUMMARY | 2024-06-03 15:23 | XMS_ITS | Encounter Summary ---
[place] [address] Care Team Providers Care Caretaker Name Role Phone None Primary Care Provider Unavailabl e Reason for Referral * Consultation (Routine) - Authorized Specialty Diagnoses / Procedures Referred By Contac t Referred To Contact Nephrology Diagnoses Stage 4 chronic kidney disease Juan José Harrison MD [facility] [place] [address] [facility] Nephrology [address] [place] [phone] Referral ID Status Reason Start Date Expiration Date Visits Requested Visits Authorized [id number] Authorized Specialty Service Requested 05/23/2024 05/23/2025 1 1 * Consultation (Routine) - Authorized Specialty Diagnoses / Procedures Referred By Contac t Referred To Contact Infectious Diseases Diagnoses Osteomyelitis of second toe of right foot Rodriguez Hein MD [facility] [place] [address] [facility] Infectious Dis [address] [place] [phone] Referral ID Status Reason Start Date Expiration Date Visits Requested Visits Authorized [id number] Authorized Assume Subset of Care 05/17/2024 05/17/2025 1 1 Reason for Visit * Auth/Cert (Routine) Specialty Diagnoses / Procedures Referred By Contac t Referred To Contact Diagnoses Septic shock septiic shock Procedures ER Tho Aquino MD [facility] [place] [address] [facility] Referral ID Status Reason Start Date Expiration Date Visits Re quested Visits Authorized [id number] 1 1 Encounter Details Date Type Department Care Team (Latest Contact Info) Description 05/10/2024 2:12 AM EDT - 05/23/2024 4:14 PM EDT Hospital Encounter Surgical Unit Level 4 [place] [id number] Tho Dickson MD [facility] [place] [address] Mary De La Fuente MD [address] [place] [address] [place] [address] [place] [address] Septic shock; Altered tissue perfusion; Osteomyelitis of second toe of right foot; Stage 4 chronic kidney disease Discharge Disposition: Senior Care Facility Social History Tobacco Use Types Packs/Day Years Used Date Smoking Tobacco: Former Cigarettes 14 0.6 S tarted: 2023 Smokeless Tobacco: Never Tobacco Cessation:Counseling Given: Not Answered Alcohol Use Standard Drinks/Week Comments Yes 0 (1 standard drink = 0.6 oz pur e alcohol) 3-4 PER [facility] Inpatient Questions Answer Date Recorded Does [...] on file documented as of this encounter Last Filed Vital Signs Vital Sign Reading [...] Mass Index 46.24 05/14/2024 9:50 AM EDT documented in this encounter Discharge Summaries * Saba Spears MD - 05/22/2024 8:18 AM EDT Patient Name: Jossy Shanks Patient Age: 69 y.o. Language: Polish Race: White Ethnicity: Not nor Admit date: 05/10/2024 Discharge date and time: 05/23/2024 Attending Physician: Saba Spears MD Discharge Physician: Saba Spears MD Follow-up Recommendations for Providers: [ ] on furosemide 40mg daily at dc, please continue to monitor volume status and adjust as necessary [ ] HOLD xarelto 5 days in setting of recent GIB, recheck CBC, then resume Xarelto May 28 [ ] sleep study referral placed [ ] PT recs as below [ ] Infectious Disease follow scheduled 06/03 with projected end date IV abx 06/04. When done with abx, will need tunnel line removed [ ] Ortho follow up scheduled 06/05 [ ] Referral placed for nephro. Continue with Sevelamer 800mg TID w meals, and Sodium BiCarb 650mg BID for acidosis. Continue with low Phos and Low K diet. [ ] will need central line removed after IV antibiotics completed [ ] with duodenal ulcer, GI recommends BID PPI for 2 months and then daily. Monitor for signs or symptoms of rebleeding. Inpatient Provider Contact Information: For questions regarding this document or issues relating to this hospitalization on the Medical Service, please contact your inpatient physician through the [facility] [employer] [facility] Professional . Issues afterhours and on weekends will be handled by the staff on-call. Discharge Diagnoses (Hospital Problems) and Secondary Diagnoses (Chronic Problems): Active Hospital Problems Diagnosis Septic shock Resolved Hospital Problems No resolved problems to display. Active Non-Hospital Problems Diagnosis Degenerative lumbar spinal stenosis Operations/Major Procedures: Operations: Procedure(s): EGD, UPPER GI ENDOSCOPY (WRVU 2.09) EGD, W CONTROL OF BLEEDING, ANY METHOD (WRVU 3.56) EGD, W DIRECTED SUBMUCOSAL INJECTION(S) (WRVU 2.39) 05/22/2024 Procedure(s): EGD, UPPER GI ENDOSCOPY (WRVU 2.09) EGD, W CONTROL OF BLEEDING, ANY METHOD (WRVU 3.56) EGD, W DIRECTED SUBMUCOSAL INJECTION(S) (WRVU 2.39) 05/22/2024 Other Major Procedures: EGD 05/22/24, non-bleeding ulcer clipped, no complications History of Presentation: Jossy Shanks is a 69 y.o. year old male with PMH significant for IDDM, Afib rate controlled, CKD (Cr 1.9 in 2019), COPD not on home oxygen, HFpEF, HTN who presented to [facility] for rt LE cellulitis, transferred to [facility] for septic shock. At end of March he dropped cylinder block on rt foot, bleeding and painful. Kept bandaged and sock on it, same sock on it for the last week, reports sock became fused to wound. Denies paresthesia. Wasable to walk w/out difficulty. In last several days erythema and edema spread upper Rt LE to knee. Fevers & chills for last 24hrs. [place] lightheaded, weak, & couldn't get out of chair yesterday prompting him to seek medical care. Denies N/V, head injury, CP, palpitations, reduced UOP, dysuria. Normal PO intake, last meal before presentation was 6:30am 04/09. Reports home bgl 120-130s. Reports diarrhea started am before presentation. Reports acute SOB on arrival to OSH, attributes to hypotension and COPD. Denies any worsening in baseline cough. No home oxygen or treatment for reported COPD. OSH labs: WBC 32K, lactate 2.2, Cr 4.7, K 5.5, pH 7.3, pco3 54, bicarb 27. OSH blood & wound cultures obtained. S/p 2.5L IVF. 5mcg levo. Lactate improved. HR stable mid 70s, on RA 95%. Reportedly pt was wheezingand had increased WOB, given 125mg methyl pred and duonebs. At OSH: Reportedly appeared hypervolemic on examination. Oliguric. Hyperkalemic, given lokelma & shifted. Started on vanc, cefepime, and zosyn. Wound culture gram stain: GPC. Wound was debrided but there was reportedly a piece of cloth the ED was unable to remove. Last tetanus vax in 2022. Right LE has no gas on CT. No acute findings on CT CAP. BP normalized and was off pressors prior to OSH departure. On arrival to [facility]: HR 96, o2 sat mid 90s on RA, BP 123/81, pt appeared comfortable NAD, reportedlyvasopressors had been off for several hours. He was alert and oriented. Hospital Course: #Sepsis from cellulitis iso known MSK trauma - #Right LE cellulitis #osteomyelitis, amputation Left 2nd toe Pt was initially admitted to the ICU with concern for septic shock requiring fluid resuscitation and vasopressors prior to transfer but on admission did not have any vasopressor requirement thus septic shock not present on admission to our ICU. Did have sepsis with WBC 32, FISH, lactate to 2.2 at OSH. He was maintained on Vanc/Zosyn and an MRI of his foot was ordered which soft tissue irregularityat the tip of the second toe, presumably corresponding to a site of soft tissue injury or open wound. Tiny 3 mm focus of osteitis of the distal tuft of the second toe. Ortho consulted. ABIs, duplex for DVT, and blood cultures were also obtained, showing no significant lower extremity arterial occlusive disease, normal ankle/brachial pressure ratios and ankle Doppler waveforms, no evidence of lower extremity DVT, and eventually no growth at 5 days, respectively. He continued on vancomycin and Zosyn. Was also oliguric FISH, suspected prerenal and improved with fluids. Did not require pressors, was transitioned to hospital medicine for further care, the same day as transfer to [facility]. On the general medicine floor, he was continued on pip-tazo and vancomycin for GPC and GNR's seen in the wound culture. On 05/13, spoke with Ortho regarding operative versus nonoperative treatment, and decision was made to pursue operative amputation of the second toe with extent of amputation determined intraoperatively. On 05/14 underwent uncomplicated amputation down to joint between middle phalanx and prox phalanx, with additional removal distal 2/3 of prox phalanx. Prox wound cultures sent, which resulted with GPCs. Per ID, continued with ceftriaxone and vancomycin until these GPCs were identified as coagulase negative staph species, and vancomycin was dc'd. OPAT order placed in anticipation of discharge for ongoing Ceftriaxone until 06/04 . With his CKD, nephrology recommended against PICC line to preserve veins in case of future fistula. IR placed right central line for ongoing IV antibiotics which will need to be removed with antibiotics complete. He began work with PT with an off loading boot to rebuild strength and mobility. Wound care recs below. #FISH on CKD POA (improving) #Oliguric FISH, improved #Hyponatremia #Hyperkalemia #Hyperphosphatemia On admission, creatinine was 3.94. He had a baseline of 1.9 in 2019, but no other recent documentedin chart. Comorbidities include hypertension, diabetes, HFpEF, COPD, A-fib, chronic stasis dermatitis, and infections of his lower extremities. Additional comorbidity includes use of vancomycin and Zosyn and ceftriaxone while hospitalized. Creatinine waxed and waned, and was thought to be due to his status is n.p.o. several occasions for surgery. He did have 1 episode of guaiac, but had no nieves bleeding. After being placed back on a full diet, and off of vancomycin, his BUN continued to increase which point a nephrology consult was placed. By the next day you had episodes of melena, concern for GI bleeding, which explained his elevation in BUN. He continued at risk for FISH, but given HFpEFand ability to take in fluids PO, did not require IVF. Potassium and phosphate trended high, and placed on low potassium and phosphate diet. #HFpEF #A-fib on Xarelto Patient's fluid status was monitored throughout his hospitalization. Originally his Lasix was held with concerns of septic shock. However he began to increase in fluid status to hypervolemia, and home furosemide was resumed. Coreg was also held after recent pressors, but resumed. At first Xarelto was held in anticipation of his procedure, with ac instead with Heparin. Xarelto resumed after amputatio. However, when concern for UGIB with drop in Hgb, Xarelto held again and prior to EGD, with plan and instruction to resume 5 days after EGD, May 28. #Diarhea #Melena and UGIB - duodenal ulcer #Anemia, acute blood loss Upon initiation of diarrhea, was started on lactobacillus. With frequency of stools, pt was appropriate for c diff screen per testing decision tool, resulted negative. One day improvement of diarrhea, then next day returned and black, c/f melena. Drop in H/H, that reversed on repeat lab, however given overall slow drop in hemoglobin throughout hospitilization, was c/f UGIB. Started on Protonix BID. GI consulted. CBC trended, with Hgb >7. EGD on 05/22 notable for hgb 6.9 just prior to EGD. 1 U blood ordered, and pt received. Underwent EGD, during which non-bleeding duodenal ulcer in first part of duodenum with adherent clot which was clipped and treated with epinephrine. Repeat hemograms with hemoglobin stable around 7.8. Pt also received 3 days of EPO prior to discharge. GI recommends BID PPI for 2 months then daily. #COPD - has been well tolerating duonebs, with improvement of wheezing, will continue on dc. #IDDM Home regiment: 1.2mg liraglutide qd, 20u glargine nightly, 8u lispro tid. A1c 5.9 Throughout hospitalization pt's blood sugars were followed at insuline regimen adjusted appropriately, By discharge, was well controlled on glargine nightly 14U, meal associated Lispro 1U for every 10g carbs, and humalog 1-6 U q4 hours for correction. Physical Therapy: Goals: To be achieved by 06/16/24: Pt. to demonstrate knowledge of safety limitations and precautions and will appropriately request assistance for functional activities and to mobilize. Pt. to perform bed mobility with modified independence. Pt. to perform transfers with modified independence using FWW while adhering to heel weight bearingin forefoot offloading shoe RLE. Pt. to ambulate 150 feet with modified independence using a a front wheeled walker while adhering to heel weight bearing in forefoot offloading shoe RLE. Pt. to ambulate up/down 4 step/stairs using one rail with LRAD with modified independence. Pt will tolerate progression towards upright with stable vital signs. Wound Care Recommendations: Right toe: Melgisorb Ag and Gauze Bedside nurse to change dressing every 3 days and as needed for dressing with 50% or greater strikethough drainage. 1. Cleanse the wound with dermal wound cleanser or normal saline. 2. Cover the wound bed with Melgisorb Ag cut to fit the wound bed. 3. Cover with Mepilex border dressing. (Melgisorb Ag 6x6 PS # [id number]) (Melgisorb Ag 4x4 PS # [id number]) Sacrum/ischium: open to air, utilize Z-guard if patient begins to have breakdown Nutrition: Low phos, low potassium recommended. Vital Signs at Discharge: BP: 146/60, Heart Rate: 87 (full bed change d/t very large black pasty stool. gown changed. entire genital area very red, moist and areas of excoriation. pt stated the nurses down on the floor gave powder. encouraged pt to have it examined by MD. Will inform physician), Temp: 36.5 ??C (97.7 ??F), Resp: 20, BMI (Calculated): 43.4 Height: 190.5 cm (6' 3) (05/14/24 0950) Weight: (!) 167.8 kg (369 lb 14.9 oz) (05/23/24 0624) Functional and Cognitive Status: functional requiring rehab, cognitive at baseline Important Studies and Lab Data: Labs: Last 3 wbc, hgb, hct plt Recent Labs 05/23/24 0946 05/23/24 0119 05/22/24 1118 05/22/24 0518 WBC 12.66* 12.66* -- 14.70* HGB 7.7* 7.8* 6.9* 7.2* HCT 24.3* 24.3* 21.4* 22.1* PLATELET 370* 381* -- 366* Last 3 LFTs Recent Labs 05/22/24 0518 05/10/24 0220 AST 18 21 ALT 42 19 ALKPHOS 84 42 BILITOT <0.2 0.5 BILIDIR <0.2 0.2 Last Ca, Mg, Phos Recent Labs 05/23/2446 05/23/24 0119 CALCIUM 9.3 9.1 PHOS -- 5.8* MAGNESIUM -- 0.86 Studies: Results for orders placed or performed during the hospital encounter of 05/10/24 XR Chest One View (Exam End: 05/10/2024 2:37 AM) Result Value WORKSTATION ID [id number] Impression Bibasilar atelectasis. Thank you for letting us participate in the care of this patient. If you are a health care provider and have any questions regarding this report, please contact the number below. For patients who have questions please contact the health care connector that requested your imaging first. Foot wwo Contrast Right (Exam End: 05/10/2024 5:51 AM) Result Value WORKSTATION ID [id number] Impression 1. Soft tissue irregularity of the tip of the 2nd toe is presumed to correspond to focal soft tissue injury or an open wound. Recommend correlation with physical examination. No rim-enhancing soft tissue abscess. [...] this report, please contact the number below. For patients who have questions please contact the health care connector that requested your imaging first. Electronically signed by: Trinidad Mota MD, [facility] ([phone]), at 05/10/2024 12:56 PM US Retroperitoneal Complete (Exam End: 05/20/2024 10:36 AM) Result Value WORKSTATION ID [id number] Impression 1. Very limited exam secondary to patient body habitus and overlying bowel gas. 2. No hydronephrosis on either side. Within the limitations of the exam, no stones seen. 3. Normal bladder contour. Estimated bladder volume at time of scan 446 cc. I have personally reviewed the image(s) and the resident's interpretation and agree with the findings, Teofilo Ruiz MD at 05/20/2024 11:30 AM Electronically signed by: Teofilo Ruiz MD, [facility] ([phone]), at 05/20/2024 11:30 AM Thank you for letting us participate in the care of this patient. If you are a health care provider and have any questions regarding this report, please contact the number above. For patients who have questions, please contact the health care connector that requested your imaging first. Teofilo Ruiz, Staff Physician Electronically Signed Final Report 05/20/2024 11:36 am Pending Studies and Lab Data: Discharge Conditions/Prognosis: s/p Left 2nd toe amputation, recovering, requiring rehab. Back to baseline. Discharge to: [facility] Updated Allergies/ADRs: No Known Allergies Immunizations Given this Hospitalization: There is no immunization history on file for this patient. Discharge Medications: Your Medications New Medications Dose Details ipratropium-albuteroL 0.5 mg-3 mg(2.5 mg base)/3 mL Solution for Nebulization Commonly known as: Duoneb Take 0.5 mg by nebulization every 6 hours. 3 mL Quantity: 3 mL Refills: 0 lactobacillus acidophilus Capsule Take 1 capsule by mouth daily for 30 days. Start taking on: May 24, 2024 1 capsule Quantity: 30 capsule Refills: 0 pantoprazole EC [address] tablet Commonly known as: Protonix Take 1 tablet by mouth 2 times daily for 60 days. 40 mg Quantity: 60 tablet Refills: 1 sevelamer carbonate 800 mg tablet Commonly known as: Renvela Take 1 tablet by mouth 3 times daily (with meals) for 30 days. 800 mg Quantity: 90 tablet Refills: 0 sodium bicarbonate 650 mg tablet Take 1 tablet by mouth 2 times daily for 30 days. 650 mg Quantity: 60 tablet Refills: 0 Continued medications with new dosing Dose Details insulin glargine 100 unit/mL (3 mL) pen Commonly known as: Lantus Inject 14 Units subcutaneously nightly. What changed: how much to take 14 Units Quantity: 3 mL Refills: 0 insulin lispro 100 unit/mL Insulin Pen Commonly known as: HumaLOG Inject 0-8 Units subcutaneously 3 times daily (before meals). Inject 1 unit for every 10 grams of carbohydrates What changed: how much to take additional instructions 0-8 Units Quantity: 3 mL Refills: 0 Xarelto 15 mg tablet Take 1 tablet by mouth daily. Generic drug: rivaroxaban Start taking on: May 28, 2024 What changed: These instructions start on May 28, 2024. If you are unsure what to do until then,ask your doctor or other care provider. 15 mg Quantity: 30 tablet Refills: 0 Continued medications, unchanged Dose Details acetaminophen 650 mg ER tablet Commonly known as: Tylenol Take 1,300 mg by mouth every 8 hours as needed for Pain. Do not exceed 6 tabs in 24 hours 1,300 mg Refills: 0 carvediloL 25 mg tablet Commonly known as: Coreg Take 25 mg by mouth 2 times daily (with meals). 25 mg Refills: 0 DILT-XR 240 mg ER (XR/XT) 24 hr capsule Take 240 mg by mouth daily. Generic drug: dilTIAZem XR 240 mg Refills: 0 furosemide 20 mg tablet Commonly known as: Lasix Take 40 mg by mouth daily. 40 mg Refills: 0 multivitamin Tablet Commonly known as: THERAGRAN Take 1 tablet by mouth daily. 1 tablet Refills: 0 STOPPED Medications liraglutide 0.6 mg/0.1 mL (18 mg/3 mL) Pen Injector Commonly known as: VICTOZA lisinopriL 5 mg tablet Commonly known as: Zestril losartan 50 mg tablet Commonly known as: Cozaar Magnesium 200 mg tablet metoprolol tartrate 100 mg tablet Commonly known as: Lopressor traMADoL 50 mg tablet Commonly known as: Ultram Smoking Status at Discharge: Social History Tobacco Use Smoking Status Former Current packs/day: 14.00 Average packs/day: 14.0 packs/day for 0.6 years (8.5 ttl pk-yrs) Types: Cigarettes Start date: 2023 Smokeless Tobacco Never Last Set of Vitals and range of vitals over past 24 hours: Last value Range last 24 hrs Temperature Temp: 36.5 ??C (97.7 ??F) Temp: [36.2 ??C (97.2 ??F)-36.6 ??C (97.9 ??F)] Heart Rate Heart Rate: 87 (full bed change d/t very large black pasty stool. gown changed. entire genital area very red, moist and areas of excoriation. pt stated the nurses down on the floor gave powder. encouraged pt to have it examined by MD. Will inform physician) Heart Rate: [87] Blood Pressure BP: 146/60 BP: (117-176)/(60-94) Respiratory Rate Resp: 20 Resp: [18-20] SpO2 SpO2: 99 % SpO2: [95 %-100 %] Code Status at Discharge: Attempt Cardiopulmonary Resuscitation - Inpatient Instructions Given to Patient at Discharge: Patient Instructions -Patient is on OPAT (Ceftriaxone) until 06/04 -Will need tunneled central line removed thereafter Follow-up Appointments Future Appointments Date Time Provider Department Center 06/03/2024 2:00 PM Lu Mcfarland APRN [facility] ID [id number] [facility] 06/05/2024 4:00 PM Elkin Garcia MD [facility] ORTH 3C [facility] Your Discharge Medication List Your Medications New Medications Dose Details ipratropium-albuteroL 0.5 mg-3 mg(2.5 mg base)/3 mL Solution for Nebulization Commonly known as: Duoneb Take 0.5 mg by nebulization every 6 hours. 3 mL Quantity: 3 mL Refills: 0 lactobacillus acidophilus Capsule Take 1 capsule by mouth daily for 30 days. Start taking on: May 24, 2024 1 capsule Quantity: 30 capsule Refills: 0 pantoprazole EC [address] tablet Commonly known as: Protonix Take 1 tablet by mouth 2 times daily for 60 days. 40 mg Quantity: 60 tablet Refills: 1 sevelamer carbonate 800 mg tablet Commonly known as: Renvela Take 1 tablet by mouth 3 times daily (with meals) for 30 days. 800 mg Quantity: 90 tablet Refills: 0 sodium bicarbonate 650 mg tablet Take 1 tablet by mouth 2 times daily for 30 days. 650 mg Quantity: 60 tablet Refills: 0 Continued medications with new dosing Dose Details insulin glargine 100 unit/mL (3 mL) pen Commonly known as: Lantus Inject 14 Units subcutaneously nightly. What changed: how much to take 14 Units Quantity: 3 mL Refills: 0 insulin lispro 100 unit/mL Insulin Pen Commonly known as: HumaLOG Inject 0-8 Units subcutaneously 3 times daily (before meals). Inject 1 unit for every 10 grams of carbohydrates What changed: how much to take additional instructions 0-8 Units Quantity: 3 mL Refills: 0 Xarelto 15 mg tablet Take 1 tablet by mouth daily. Generic drug: rivaroxaban Start taking on: May 28, 2024 What changed: These instructions start on May 28, 2024. If you are unsure what to do until then,ask your doctor or other care provider. 15 mg Quantity: 30 tablet Refills: 0 Continued medications, unchanged Dose Details acetaminophen 650 mg ER tablet Commonly known as: Tylenol Take 1,300 mg by mouth every 8 hours as needed for Pain. Do not exceed 6 tabs in 24 hours 1,300 mg Refills: 0 carvediloL 25 mg tablet Commonly known as: Coreg Take 25 mg by mouth 2 times daily (with meals). 25 mg Refills: 0 DILT-XR 240 mg ER (XR/XT) 24 hr capsule Take 240 mg by mouth daily. Generic drug: dilTIAZem XR 240 mg Refills: 0 furosemide 20 mg tablet Commonly known as: Lasix Take 40 mg by mouth daily. 40 mg Refills: 0 multivitamin Tablet Commonly known as: THERAGRAN Take 1 tablet by mouth daily. 1 tablet Refills: 0 STOPPED Medications liraglutide 0.6 mg/0.1 mL (18 mg/3 mL) Pen Injector Commonly known as: VICTOZA lisinopriL 5 mg tablet Commonly known as: Zestril losartan 50 mg tablet Commonly known as: Cozaar Magnesium 200 mg tablet metoprolol tartrate 100 mg tablet Commonly known as: Lopressor traMADoL 50 mg tablet Commonly known as: Ultram Orthopaedic Surgery Discharge Instructions Activity: Your weight-bearing status is - weight bearing as tolerated of the right lower extremity only in a forefoot offloading shoe at all times. Anticoagulation: Please refer to instructions from your primary team regarding anticoagulation recommendations. Diet: Resume your usual diet but increase your intake of fluids and fiber while you are on narcoticpain meds to prevent constipation. Driving: None until you are cleared to do so by your Orthopedic surgeon. You should not drive whileyou are on narcotic pain meds as they can affect your judgment and reaction time. Call your surgeonwith any questions/concerns. Ice and elevation Some swelling is expected after surgery. Ice and elevation are the best remedies to reduce swellingand pain. Keep your operative extremity properly elevated above the level of the heart You may use pillows to increase elevation. Intermittently apply ice to the outside of the dressing for 20 minutes 6-8 times a day. You will want to ice and elevate for 5-7 days after surgery or as long as it hurts. Dressing / Wound: Your incision was closed with sutures or nicki. These will be removed at your orthopaedic follow up appointment. Please keep the sutures or nicki covered with soft sterile dressing until removal. Misc: Remember that ICE and elevation are very important after surgery to help decrease swelling and control pain. Use ICE for 20-30 minutes at a time and keep your leg elevated as much as possible. Call your doctor ([phone]) if you develop: Fever greater than 100.5 Severe nausea or vomiting Increasing pain that is not controlled by pain medications Increasing redness, swelling, or drainage from incisions Change in sensation FOLLOW-UP APPOINTMENTS: 1. You will have follow-up appointments at [facility] as indicated below in Future Appointment and Orders. 2. You will need to have x-rays prior to your follow-up appointment listed below. Please come to Radiology, desk 3T, 1 hour BEFORE that appointment for these x-rays. Future Appointments Date Time Provider Department Center 06/03/2024 2:00 PM Lu Mcfarland APRN [facility] ID 5C [facility] 06/05/2024 4:00 PM Elkin Garcia MD [facility] ORTH 3C [facility] If you have questions or concerns: Sunday through Sunday, 8 AM - 5 PM, please call Dr. Saba Spears MD's office at . If it is after 5 PM, the weekend, or holidays, please call and ask to speak with theOropedic resident on-call. General Instructions Upper GI Endoscopy: What to Expect at Home Your Recovery You will be able to go home after your doctor or nurse checks to make sure you are not having any problems. You may have to stay overnight if you had treatment during the test. You may have a sore throat fora day or two after the test. This care sheet gives you a general idea about what to expect after the test. How can you care for yourself at home? Activity Rest when you feel tired. You can do your normal activities when it feels okay to do so. Diet Follow your doctor's directions for eating. Unless your doctor has told you not to, drink plenty of fluids. This helps to replace the fluids that were lost during the prep. Do not drink alcohol. Medicines Your doctor will tell you if and when you can restart your medicines. He or she will also give you instructions about taking any new medicines. If you take blood thinners, such as warfarin (Coumadin), clopidogrel (Plavix), or aspirin, be sure to talk to your doctor. He or she will tell you if and when to start taking those medicines again. Make sure that you understand exactly what your doctor wants you to do. If polyps were removed or a biopsy was done during the test, your doctor may tell you not to take aspirin or other anti-inflammatory medicines for a few days. These include ibuprofen (Advil, Motrin) and naproxen (Aleve). If you have a sore throat the day after the procedure, use an lilw-cda-dnmgsso spray to numb your throat. Sucking on throat lozenges and gargling with warm salt water may also help relieve your symptoms. Other instructions For your safety, do not drive or operate machinery until the medicine wears off and you can think clearly. Your doctor may tell you not to drive or operate machinery until the day after your test. Do not sign legal documents or make major decisions until the medicine wears off and you can think clearly. The anesthesia can make it hard for you to fully understand what you are agreeing to. Additional Information for Sedation Patients For patients who received sedation: You may have received medications before and/or during your procedure which effects your judgement and reaction time. Do not drive, operate machinery, drink alcoholic beverages or make important decisions for 24 hours. Be careful on stairs as you may be unsteady on your feet. You may eat a regular diet as tolerated. Do not smoke if you are alone. IV site: Slight redness or tenderness is normal, you can use a warm compress if you would like. If tenderness and/or redness increase or if foul drainage occurs, please contact your Doctor. Please call [phone] before 8pm Mon-Fri with problems, questions or concerns. If you call after 8pm or on weekends, call the Hospital at [phone] and ask to speak to the Gauge [employer] auctioneer automobile and the seaming machine operator will contact that person for you. When should you call for help? Call 911 anytime you think you may need emergency care. For example, call if: You passed out (lost consciousness). You pass maroon or bloody stools. You have trouble breathing. Call your doctor now or seek immediate medical care if: You have pain that does not get better after you take pain medicine. You are sick to your stomach or cannot drink fluids. You have new or worse belly pain. You have blood in your stools. You have a fever. You cannot pass stools or gas. Watch closely for changes in your health, and be sure to contact your doctor if you have any problems. Where can you learn more? [facility] View your After Visit Summary and more online at [email or web address] If you would like to provide feedback about your hospital experience, please call the Office of Patient and Family Relations at . If you have received this After Visit Summary in error, please immediately return it in person to the department, or notify the [facility] Privacy Office by calling toll free at between the hours of 8AM and 5PM to arrange for our retrieval of the documents at no cost to you. Content Version: 12.2 ?? 6783-7702 [employer]. Care instructions adapted under license by [facility]. If you have questions about a medical condition or this instruction, always ask your healthcare professional. [employer] disclaims any warranty or liability for your use of this information.DISCHARGE INSTRUCTIONS FOR TUNNELED CENTRAL VENOUS CATHETER CARE Bandage: There is a sterile dressing over the catheter site consisting of a small gauze with a clear dressing ( Tegaderm) over it. This dressing will be changed or removed by the hospital staff, and you should not change it at home. If the clear dressing becomes loose, you should place tape over the edges to secure it in place. Never touch the open end of the CVC when the cap has been removed. Bathing: You may shower 72 hours after the catheter has been inserted. When you shower or bathe, you must cover the site with a waterproof material, such as plastic wrap, taped over the dressing and injection caps. Pain: Apply ice bag to site (s) at 30 minute intervals (30 minutes on and 30 minutes off) for 24 hours. May use Tylenol as needed for pain and/or bruising after 24 hours. When to call your healthcare provider: If you develop pain, redness, drainage of swelling at the catheter or neck puncture site. If you develop a fever of 101 degrees or greater. If you develop shaking chills. If the catheter breaks, or you notice leaking from one of the ports or the catheter itself. If you notice bleeding from the catheter or the neck puncture sites, apply firm pressure over both sites simultaneously for 10-15 minutes. If you are still bleeding after 10-15 minutes, have someone drive you to the nearest Emergency Department or call 911. When to call the Interventional Radiology Department: Please call with any questions or concerns. If it is during regular working hours, please call [phone]. If it is after 5 pm or a weekend or holiday, call [phone] and ask for the [employer] auction[employer] automobile for Interventional Radiology. You have received medication during your procedure to help lessen anxiety and keep you comfortable.We recommend that you do not drive, operate equipment, sign any important documents, or smoke unattended for 24 hours following your procedure. Be careful on stairs, as you may be unsteady on your feet. You may eat a regular diet as tolerated IV site -- slight redness, or tenderness is normal, you can use a warm compress. If tenderness and redness increases or foul drainage occurs, please contact your M. D. Updated 07/31/19 Future Appointments and Orders Future Appointments and Orders Future Appointments Provider Department Dept Phone 06/03/2024 2:00 PM Lu Mcfarland APRN Infectious Disease at [facility] Arrive at: [employer] [facility]C [phone] 06/05/2024 4:00 PM Elkin Garcia MD Orthopaedics at [facility] Arrive at: [employer] [facility]C [phone] Future Orders Complete By Expires OPAT: Order / Recommendation for Post Discharge IV Antibiotic Management [ASB089 CPT(R)] As directed Process Instructions: If no progress note charted, please enter Clinical details in comments. Scheduling Instructions: Comments: - If this order was signed greater than 72 hours prior to [facility] discharge, please call to confirm the accuracy of this order. Please Fax all results to: [facility] Infectious Disease Section [facility], [place] [address] FAX: - After hours, please contact the Infectious Disease Physician auctioneer automobile at . - Line care instructions - see flush/heparin orders. Facilities may follow organizational policies/practices regarding heparin. - senior care for medication administration/supervisor mails and catheter care/maintenance authorized. HD Line care instructions per HD facility protocol Home line placement: Place IV access: Peripheral Place IV access: Midline Place IV access: PICC If PICC access placed: Chest X-ray to confirm placement - CVC/PICC Dressing Change weekly and PRN Please use CHG or Bio Patch RN: Please care for PICC line including dressing changes weekly and prn. Please draw labs every Sunday fax results to OPAT at [phone]. Please draw labs off PICC line. Please see [facility] order for lab draw details. Please RN visit for IV ABX teaching and ongoing assessment. Senior Care for Medication Administration/Hookup and catheter care/maintenance: - Teach Patient/Caregiver goals/self-monitoring/therapy administration to independence per the Nursing Care Plan. - senior care visit frequency; initial, weekly and 2 PRN visits for complications and/or issueswith therapy for the duration of therapy. - Insert/maintain/replace/remove vascular access device as needed when clinically appropriate and per the Nursing Care Plan. ( PIV: 22 - qauqe) - Change VAD dressing, extension set and needleless connector weekly and 2 PRN visits for complications and/or issues with therapy for the duration of therapy. Disinfect site with CHG or Betadine/alcohol, may use antimicrobial patch to site routinely or as needed. - If ordered, may draw labs via Central line or peripherally and flushed per orders. 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 Scheduling Instructions: Comments: Press F2 to select a diagnosis and magnifying glass (F3) to enlarge workspace: I am referring to nephrology my 69 y.o. male patient Jossy Shanks for evaluation of chronic kidney disease (rise in creatinine which has persisted for greater than 3 months). Are all Required tests available(see list below)? yes Required: CBC, BMP, Albumin, Phosphorus, PTH, UA w/Micro, Ur Protein/Cr Ratio, and Retroperitoneal US Complete: CBC Result: Lab Results Component Value Date WBC 12.66 (H) 05/23/2024 WBC 11.6 (H) 05/16/2024 RBC 2.56 (L) 05/23/2024 RBC 3.59 (L) 05/16/2024 HGB 7.7 (L) 05/23/2024 HGB 10.5 (L) 05/16/2024 HCT 24.3 (L) 05/23/2024 HCT 33.8 (L) 05/16/2024 MCV 94.9 (H) 05/23/2024 MCV 94.2 (H) 05/16/2024 MCH 30.1 05/23/2024 MCH 29.2 05/16/2024 MCHC 31.7 (L) 05/23/2024 MCHC 31.1 (L) 05/16/2024 RDWSD 57.1 (H) 05/23/2024 RDWSD 55.1 (H) 05/16/2024 RDWCV 16.9 (H) 05/23/2024 RDWCV 15.9 (H) 05/16/2024 PLATELET 370 (H) 05/23/2024 PLATELET 317 05/16/2024 MPV 11.6 05/23/2024 MPV 10.6 05/16/2024 NEUTROABS 10.34 (H) 05/23/2024 NEUTROABS 9.22 (H) 05/16/2024 BMP Result: Lab Results Component Value Date GLUCOSE 142 05/23/2024 GLUCOSE 154 05/16/2024 BUN 83 (H) 05/23/2024 BUN 74 (H) 05/16/2024 CREATININE 2.64 (H) 05/23/2024 CREATININE 2.88 (H) 05/16/2024 NA 140 05/23/2024 NA 133 (L) 05/16/2024 K 5.2 (H) 05/23/2024 K 5.0 05/16/2024 CL 111 (H) 05/23/2024 CL 101 05/16/2024 CO2 20 (L) 05/23/2024 CO2 21 (L) 05/16/2024 ANIONGAP 9 05/23/2024 ANIONGAP 11 05/16/2024 CALCIUM 9.3 05/23/2024 CALCIUM 8.8 05/16/2024 ESTGFR 23 (L) 05/16/2024 Lab Results Component Value Date PHOS 5.8 (H) 05/23/2024 PHOS 6.3 (H) 05/16/2024 PTH 27 05/19/2024 UA with Microscopic: Lab Results Component Value Date PHUADIP 5.5 05/10/2024 PROTEINUADIP 30 (A) 05/10/2024 GLUCOSEU Negative 05/10/2024 KETONESUA Negative 05/10/2024 BILIRUBINUA Negative 05/10/2024 UROBILIUADIP Normal 05/10/2024 BLOODUADIP Large (A) 05/10/2024 LEUKOESTERUA Small (A) 05/10/2024 NITRATEUA Negative 05/10/2024 US Retroperitoneal: US Retroperitoneal Complete Result Date: 05/20/2024 Renal (Signed Final 05/20/2024 11:36 am) PATIENT INFO: ID #: [id number].O.B.: [birth year] (69 yrs)(M) Name: JOSSY SHANKS Visit Date: 05/20/2024 10:34 am PERFORMED BY: Attending: Teofilo Ruiz MD Resident: Trinidad Light MD Performed By: Lulu Shin RDMS Referred By: SABA SPEARS Location: [place] SERVICE(S) PROVIDED: URETRO - Retroperitoneal Complete - [id number] INDICATIONS: CKD, increase BUN TECHNIQUE/SCAN QUALITY: Scan [...] (ml): 445.6 Comment: Partially distended, normal contour. 1. Very limited exam secondary to patient body habitus and overlying bowel gas. 2. No hydronephrosis on either side. Within the limitations of the exam, no stones seen. 3. Normal bladder contour. Estimated bladder volume at time of scan 446 cc. I have personally reviewed the image(s) and the resident's interpretation and agree with the findings, Teofilo Ruiz MD at 05/20/2024 11:30 AMElectronically signed by: Teofilo Ruiz MD, [facility] ([phone]), at 05/20/2024 11:30 AM Thank you for letting us participate in the care of this patient. If you are a health care provider and have any questions regarding this report, please contact the number above. For patients whohave questions, please contact the health care connector that requested your imaging first. Teofilo Ruiz, Staff Physician Electronically Signed Final Report 05/20/2024 11:36 am My clinical question: Patient to establish for CKD management Do not type below here [id number] Questions: My question or request is: See comment Provider Contact Information: None None None Discharge References/Attachments Low Phosphorus Foods: General Info (Polish) Low Potassium Foods: General Info (Polish) documented in this encounter Discharge Instructions * Discharge Instructions* Irene Bravo RN - 05/21/2024 9:16 AM EDT Upper GI Endoscopy: What to Expect at Home Your Recovery You will be able to go home after your doctor or nurse checks to make sure you are not having any problems. You may have to stay overnight if you had treatment during the test. You may have a sore throat fora day or two after the test. This care sheet gives you a general idea about what to expect after the test. How can you care for yourself at home? Activity Rest when you feel tired. You can do your normal activities when it feels okay to do so. Diet Follow your doctor's directions for eating. Unless your doctor has told you not to, drink plenty of fluids. This helps to replace the fluids that were lost during the prep. Do not drink alcohol. Medicines Your doctor will tell you if and when you can restart your medicines. He or she will also give you instructions about taking any new medicines. If you take blood thinners, such as warfarin (Coumadin), clopidogrel (Plavix), or aspirin, be sure to talk to your doctor. He or she will tell you if and when to start taking those medicines again. Make sure that you understand exactly what your doctor wants you to do. If polyps were removed or a biopsy was done during the test, your doctor may tell you not to take aspirin or other anti-inflammatory medicines for a few days. These include ibuprofen (Advil, Motrin) and naproxen (Aleve). If you have a sore throat the day after the procedure, use an mtde-qnd-oaeeffd spray to numb your throat. Sucking on throat lozenges and gargling with warm salt water may also help relieve your symptoms. Other instructions For your safety, do not drive or operate machinery until the medicine wears off and you can think clearly. Your doctor may tell you not to drive or operate machinery until the day after your test. Do not sign legal documents or make major decisions until the medicine wears off and you can think clearly. The anesthesia can make it hard for you to fully understand what you are agreeing to. Additional Information for Sedation Patients For patients who received sedation: You may have received medications before and/or during your procedure which effects your judgement and reaction time. Do not drive, operate machinery, drink alcoholic beverages or make important decisions for 24 hours. Be careful on stairs as you may be unsteady on your feet. You may eat a regular diet as tolerated. Do not smoke if you are alone. IV site: Slight redness or tenderness is normal, you can use a warm compress if you would like. If tenderness and/or redness increase or if foul drainage occurs, please contact your Doctor. Please call [phone] before 8pm Mon-Fri with problems, questions or concerns. If you call after 8pm or on weekends, call the Hospital at [phone] and ask to speak to the Gauge Controller auctioneer automobile and the seaming machine operator will contact that person for you. When should you call for help? Call 911 anytime you think you may need emergency care. For example, call if: You passed out (lost consciousness). You pass maroon or bloody stools. You have trouble breathing. Call your doctor now or seek immediate medical care if: You have pain that does not get better after you take pain medicine. You are sick to your stomach or cannot drink fluids. You have new or worse belly pain. You have blood in your stools. You have a fever. You cannot pass stools or gas. Watch closely for changes in your health, and be sure to contact your doctor if you have any problems. Where can you learn more? [facility] View your After Visit Summary and more online at [email or web address] If you would like to provide feedback about your hospital experience, please call the Office of Patient and Family Relations at . If you have received this After Visit Summary in error, please immediately return it in person to the department, or notify the [facility] Privacy Office by calling toll free at between the hours of 8AM and 5PM to arrange for our retrieval of the documents at no cost to you. Content Version: 12.2 ?? 6777-2709 [employer]. Care instructions adapted under license by [facility]. If you have questions about a medical condition or this instruction, always ask your healthcare professional. [employer] disclaims any warranty or liability for your use of this information.DISCHARGE INSTRUCTIONS FOR TUNNELED CENTRAL VENOUS CATHETER CARE Bandage: There is a sterile dressing over the catheter site consisting of a small gauze with a clear dressing ( Tegaderm) over it. This dressing will be changed or removed by the hospital staff, and you should not change it at home. If the clear dressing becomes loose, you should place tape over the edges to secure it in place. Never touch the open end of the CVC when the cap has been removed. Bathing: You may shower 72 hours after the catheter has been inserted. When you shower or bathe, you must cover the site with a waterproof material, such as plastic wrap, taped over the dressing and injection caps. Pain: Apply ice bag to site (s) at 30 minute intervals (30 minutes on and 30 minutes off) for 24 hours. May use Tylenol as needed for pain and/or bruising after 24 hours. When to call your healthcare provider: If you develop pain, redness, drainage of swelling at the catheter or neck puncture site. If you develop a fever of 101 degrees or greater. If you develop shaking chills. If the catheter breaks, or you notice leaking from one of the ports or the catheter itself. If you notice bleeding from the catheter or the neck puncture sites, apply firm pressure over both sites simultaneously for 10-15 minutes. If you are still bleeding after 10-15 minutes, have someone drive you to the nearest Emergency Department or call 911. When to call the Interventional Radiology Department: Please call with any questions or concerns. If it is during regular working hours, please call [phone]. If it is after 5 pm or a weekend or holiday, call [phone] and ask for the [employer] auction[employer] automobile for Interventional Radiology. You have received medication during your procedure to help lessen anxiety and keep you comfortable.We recommend that you do not drive, operate equipment, sign any important documents, or smoke unattended for 24 hours following your procedure. Be careful on stairs, as you may be unsteady on your feet. You may eat a regular diet as tolerated IV site -- slight redness, or tenderness is normal, you can use a warm compress. If tenderness and redness increases or foul drainage occurs, please contact your M. D. Updated 07/31/19 * Patient Instructions* Juan José Harrison MD - 05/14/2024 12:28 PM EDT -Patient is on OPAT (Ceftriaxone) until 06/04 -Will need tunneled central line removed thereafter Follow-up Appointments Future Appointments Date Time Provider Department Center 06/03/2024 2:00 PM Lu Mcfarland APRN [facility] ID 5C [facility] 06/05/2024 4:00 PM Elkin Garcia MD [facility] ORTH 3C [facility] Your Discharge Medication List Your Medications New Medications Dose Details ipratropium-albuteroL 0.5 mg-3 mg(2.5 mg base)/3 mL Solution for Nebulization Commonly known as: Duoneb Take 0.5 mg by nebulization every 6 hours. 3 mL Quantity: 3 mL Refills: 0 lactobacillus acidophilus Capsule Take 1 capsule by mouth daily for 30 days. Start taking on: May 24, 2024 1 capsule Quantity: 30 capsule Refills: 0 pantoprazole EC [address] tablet Commonly known as: Protonix Take 1 tablet by mouth 2 times daily for 60 days. 40 mg Quantity: 60 tablet Refills: 1 sevelamer carbonate 800 mg tablet Commonly known as: Renvela Take 1 tablet by mouth 3 times daily (with meals) for 30 days. 800 mg Quantity: 90 tablet Refills: 0 sodium bicarbonate 650 mg tablet Take 1 tablet by mouth 2 times daily for 30 days. 650 mg Quantity: 60 tablet Refills: 0 Continued medications with new dosing Dose Details insulin glargine 100 unit/mL (3 mL) pen Commonly known as: Lantus Inject 14 Units subcutaneously nightly. What changed: how much to take 14 Units Quantity: 3 mL Refills: 0 insulin lispro 100 unit/mL Insulin Pen Commonly known as: HumaLOG Inject 0-8 Units subcutaneously 3 times daily (before meals). Inject 1 unit for every 10 grams of carbohydrates What changed: how much to take additional instructions 0-8 Units Quantity: 3 mL Refills: 0 Xarelto 15 mg tablet Take 1 tablet by mouth daily. Generic drug: rivaroxaban Start taking on: May 28, 2024 What changed: These instructions start on May 28, 2024. If you are unsure what to do until then,ask your doctor or other care provider. 15 mg Quantity: 30 tablet Refills: 0 Continued medications, unchanged Dose Details acetaminophen 650 mg ER tablet Commonly known as: Tylenol Take 1,300 mg by mouth every 8 hours as needed for Pain. Do not exceed 6 tabs in 24 hours 1,300 mg Refills: 0 carvediloL 25 mg tablet Commonly known as: Coreg Take 25 mg by mouth 2 times daily (with meals). 25 mg Refills: 0 DILT-XR 240 mg ER (XR/XT) 24 hr capsule Take 240 mg by mouth daily. Generic drug: dilTIAZem XR 240 mg Refills: 0 furosemide 20 mg tablet Commonly known as: Lasix Take 40 mg by mouth daily. 40 mg Refills: 0 multivitamin Tablet Commonly known as: THERAGRAN Take 1 tablet by mouth daily. 1 tablet Refills: 0 STOPPED Medications liraglutide 0.6 mg/0.1 mL (18 mg/3 mL) Pen Injector Commonly known as: VICTOZA lisinopriL 5 mg tablet Commonly known as: Zestril losartan 50 mg tablet Commonly known as: Cozaar Magnesium 200 mg tablet metoprolol tartrate 100 mg tablet Commonly known as: Lopressor traMADoL 50 mg tablet Commonly known as: Ultr[facility] Orthopaedic Surgery Discharge Instructions Activity: Your weight-bearing status is - weight bearing as tolerated of the right lower extremity only in a forefoot offloading shoe at all times. Anticoagulation: Please refer to instructions from your primary team regarding anticoagulation recommendations. Diet: Resume your usual diet but increase your intake of fluids and fiber while you are on narcoticpain meds to prevent constipation. Driving: None until you are cleared to do so by your Orthopedic surgeon. You should not drive whileyou are on narcotic pain meds as they can affect your judgment and reaction time. Call your surgeonwith any questions/concerns. Ice and elevation Some swelling is expected after surgery. Ice and elevation are the best remedies to reduce swellingand pain. Keep your operative extremity properly elevated above the level of the heart You may use pillows to increase elevation. Intermittently apply ice to the outside of the dressing for 20 minutes 6-8 times a day. You will want to ice and elevate for 5-7 days after surgery or as long as it hurts. Dressing / Wound: Your incision was closed with sutures or nicki. These will be removed at your orthopaedic follow up appointment. Please keep the sutures or nicki covered with soft sterile dressing until removal. Misc: Remember that ICE and elevation are very important after surgery to help decrease swelling and control pain. Use ICE for 20-30 minutes at a time and keep your leg elevated as much as possible. Call your doctor ([phone]) if you develop: Fever greater than 100.5 Severe nausea or vomiting Increasing pain that is not controlled by pain medications Increasing redness, swelling, or drainage from incisions Change in sensation FOLLOW-UP APPOINTMENTS: 1. You will have follow-up appointments at [facility] as indicated below in Future Appointment and Orders. 2. You will need to have x-rays prior to your follow-up appointment listed below. Please come to Radiology, desk 3T, 1 hour BEFORE that appointment for these x-rays. Future Appointments Date Time Provider Department Center 06/03/2024 2:00 PM Lu Mcfarland APRN [facility] ID 5C [facility] 06/05/2024 4:00 PM Elkin Garcia MD [facility] ORTH 3C [facility] If you have questions or concerns: Sunday through Sunday, 8 AM - 5 PM, please call Dr. Saba Spears MD's office at . If it is after 5 PM, the weekend, or holidays, please call and ask to speak with theOrthopedic resident on-call. * Attachments The following attachments cannot be sent through Care Everywhere. * Low Phosphorus Foods: General Info (Polish) * Low Potassium Foods: General Info (Polish) documented in this encounter Medications at Time of Discharge Medication Sig Dispensed Refills Start Date End Date Xarelto 15 mg tablet Take 1 tablet by mouth daily. 30 tablet 05/28/2024 insulin lispro (HumaLOG) 100 unit/mL Insulin Pen Inject 0-8 Units subcutaneously 3 times daily (before meals). Inject 1 unit for every 10 grams of carbohydrates 3 mL 05/23/2024 insulin glargine (Lantus) 100 unit/mL (3 mL) pen Inject 14 Units subcutaneously nightly. 3 mL 05/23/2024 ipratropium-albutero L (Duoneb) 0.5 mg-3 mg(2.5 mg base)/3 mL Solution for Nebulization Take 0.5 mg by nebulization every 6 hours. 3 mL 05/23/2024 lactobacillus acidophilus Capsule Take 1 capsule by mouth daily for 30 days. 30 capsule 05/24/2024 06/23/2024 pantoprazole EC (Protonix) [address] tablet Take 1 tablet by mouth 2 times daily for 60 days. 60 tablet 1 05/23/2024 07/22/2024 sevelamer carbonate (Renvela) 800 mg tablet Take 1 tablet by mouth 3 times daily (with meals) for 30 days. 90 tablet 05/23/2024 06/22/2024 sodium bicarbonate 650 mg tablet Take 1 tablet by mouth 2 times daily for 30 days. 60 tablet 05/23/2024 06/22/2024 carvediloL (Coreg) 25 mg tablet Take 25 mg by mouth 2 times daily (with meals). furosemide (LASIX) 20 mg Tablet Take 40 mg by mouth daily. 0 11/08/2017 DILT-XR 240 mg Capsule,Degradable Cnt Release Take 240 mg by mouth daily. 0 11/08/2017 multivitamin (THERAGRAN) Tablet Take 1 tablet by mouth daily. acetaminophen (TYLENOL) 650 mg Tablet Sustained Release Take 1,300 mg by mouth every 8 hours as needed for Pain. Do not exceed 6 tabs in 24 hours documented as of this encounter Progress Notes * Saba Spears MD - 05/23/2024 4:14 PM EDT Hospital Medicine - Attending Day of Discharge Documentation Discharge diagnosis Active Hospital Problems Diagnosis Septic shock Resolved Hospital Problems No resolved problems to display. Secondary Issues Active Non-Hospital Problems Diagnosis Degenerative lumbar spinal stenosis I have personally seen and examined the patient and they are ready for discharge. I spent >30 minutes (Day of Discharge Code 82102) involved in the final examination of the patient, discussion of the hospital stay, instructions for continuing care to all relevant caregivers, and preparation of discharge records, prescriptions and referral forms. Plans Discharge to [facility] rehab Follow-up scheduled with ID, ortho, provider at [facility] Please see the Discharge Summary for complete details of any medication changes and additional plans. * Yg Jaffe - 05/23/2024 2:44 PM EDT Office of Care Management(OCM)/Setter Out(RS) Patient Name: Jossy Shanks : 1955 Patient has been offered a SNF bed at [phone]. [facility] arranged for a BLS transport at 1530. Ambulance will need: Medicare ambulance form completed and signed (MD or Tile Trimmer) Copy of patient demographics [place] [facility] Hospital DNR/DNI order, if active No MD to MD report necessary. Please call Nursing Report to , ask for fermenting cellar dropper. Info to accompany patient: Narcotic Prescriptions Copies of Medication Administration Records and IV sheets for past two weeks. Plan: Setter Out will be available to the patient and Tile Trimmer for further assistance. Patient to discharge to: [facility] [address] [place] [address] Yg Jaffe Setter Out * Shirley Samuel RN - 05/23/2024 12:05 PM EDT Physician Certification Statement for Non-Emergency Ambulance Services Section I - General Information Jossy Shanks 1955 Medicare Number: n/a Transport Date: 05/23/2024 (PCS is valid for round trips on this date and for all repetitive trips in the 60-day range as noted below.) Origin: [facility] Destination: [facility] Is the patient's stay covered under Medicare Part A (PPS/DRG)?: No Closest appropriate facility? Yes Transfer Type: N/A Section II - Medical Necessity Questionnaire Ambulance Transportation is medically necessary only if other means of transport are contraindicated or would be potentially harmful to the patient. To meet this requirement, the patient must be either bed confined or suffer from a condition such that transport by means other than ambulance is contraindicated by the patient's condition. The following questions must be answered by the medical professional signing below for this form to be valid: 1) Describe the MEDICAL CONDITION (physical and/or mental) of this patient AT THE TIME OF AMBULANCETRANSPORT that requires the patient to be transported in an ambulance and why transport by other means is contraindicated by the patient's condition: Right lower extremity cellulitis, R 2nd Toe Osteomyelitis s/p amputation, septic shock. 2) Is the patient bed confined as defined below? No To be bed confined the patient must satisfy all three of the following conditions: - unable to get up from bed without assistance AND unable to ambulate AND unable to sit in a chair or wheelchair. 3) Can this patient safely be transported by car or wheelchair van (i.e. seated during transport, without director medical affairs or monitoring?): No 4) In addition to complete questions 1-3 above, please select any of the following conditions that apply: *Note: supporting documentation for any boxes checked must be maintained in the patient's medical records Moderate/severe pain on movement Section III - Signature of Physician or Healthcare Professional I certify that the above information is true and correct based on my evaluation of this patient, and represent that the patient requires transport by ambulance and that other forms of transport are contraindicated. I understand that this information will be used by the Centers of Medicare and Medicaid Services ([facility]) to support the determination of medical necessity for ambulance services, and I represent that I have personal knowledge of the patient's condition at the time of transport. Shirley Samuel RN 05/23/24 Form was electronically signed and dated by the patient's Physician or Healthcare Professional *Form must be signed only by patient's attending physician for scheduled, repetitive transports. For non-repetitive, unscheduled ambulance transports, when unable to obtain the signature of the attending physician, this form was signed by Registered Nurse * Tho Gay MD - 05/23/2024 10:34 AM EDT Patient is seen and examined. He had acute kidney injury related to septic shock and osteomyelitis of his toe which subsequently was amputated. BP 122/64 Pulse 87 Comment: full bed change d/t very large black pasty stool. gown changed. entire genital area very red, moist and areas of excoriation. pt stated the nurses down on the floor gavepowder. encouraged pt to have it examined by MD. Will inform physician Temp 36.5 ??C (97.7 ??F) (Oral) Resp 20 Ht 190.5 cm (6' 3) Wt (!) 167.8 kg (369 lb 14.9 oz) SpO2 99% BMI 46.24 kg/m?? I/O last 3 completed shifts: In: 1325.1 [P.O.:1001; I.V.:136.6; Blood:187.5] Out: 5980 [Urine:5980] CBC Lab Results Component Value Date White Blood Cell 12.66 (H) 05/23/2024 Hemoglobin 7.7 (L) 05/23/2024 Hematocrit 24.3 (L) 05/23/2024 Platelet 370 (H) 05/23/2024 Lab Results Component Value Date Sodium 140 05/23/2024 Potassium 5.2 (H) 05/23/2024 Chloride 111 (H) 05/23/2024 Carbon Dioxide 20 (L) 05/23/2024 Blood Urea Nitrogen 83 (H) 05/23/2024 Creatinine 2.64 (H) 05/23/2024 Glucose 142 05/23/2024 He now has returned to what we think is his baseline renal function. He had an endoscopy yesterday that showed an ulcer. He was net negative yesterday because of his n.p.o. status and were waiting for this morning's creatinine. In any event at this point we should add Sevelamer, 2 small 800 mg withmeals 3 times a day, for his hyperphosphatemia. We should add sodium bicarbonate 650 mg orally twice a day for his acidosis. At this point please reconsult us if we can be of help. * Guillermina Quiroga MD - 05/23/2024 7:32 AM EDT Images from the original note were not included. DIVISION OF GASTROENTEROLOGY & HEPATOLOGY CONSULT PROGRESS NOTE NAME: Jossy Shanks : 1955 ID: 69 y.o. male with past medical history of PMH of HTN, HFpEF, CKD (bsl Cr ~1.5), IDDM, COPD (noton home O2), rate controlled Afib (Xarelto, dilt, coreg) admitted on 05/10/2024 for LE cellulitis 2/2 R foot trauma. GI consulted for possible GIB for worsening anemia and dark stools. INTERVAL: - EGD yesterday: several small erosions and one non-bleeding duodenal ulcer with adherent clot was found in the first portion of the duodenum; clipped and injected with epi - overnight: HDS - Hg trend: 6.9-->7.8 this AM Reports feeling well. Denies any abdominal pain, N/V. No melena or BRBPR Past Medical, Surgical, Family, Social Histories unchanged from initial consult note MEDICATIONS Medication list personally reviewed Current Meds: Scheduled: pantoprazole EC 40 mg Oral BID [START ON 05/24/2024] furosemide 40 mg Oral Daily ipratropium-albuteroL 3 mL Nebulization Q6H epoetin leah-epbx 10,000 Units Subcutaneous Daily insulin glargine (Lantus;Semglee) (100 unit/mL) subcutaneous injection 14 Units Subcutaneous Nightly lactobacillius capsule 1 capsule Oral Daily insulin lispro 1-6 Units Subcutaneous Q4H VLAD cefTRIAXone 2 g Intravenous Q24H insulin lispro 0-8 Units Subcutaneous TID WC carvediloL 25 mg Oral BID dilTIAZem 60 mg Oral Q6H VLAD Drips: PRN: simethicone, oxyCODONE, melatonin, glucose 40% oral geL OR dextrose OR glucagon, acetaminophen No Known Allergies OBJECTIVE Vitals: T Temp: [36 ??C (96.8 ??F)-36.6 ??C (97.9 ??F)] HR Heart Rate: [80-91] BP BP: (117-182)/(59-94) RR Resp: [16-22] SpO2 SpO2: [91 %-100 %] 05/22 0701 - 05/23 0700 In: 624.1 [P.O.:300; I.V.:136.6] Out: 4405 [Urine:4405] Wt Last (!) 167.8 kg (369 lb 14.9 oz) Admit 159.8 kg Physical Exam: CONST: Awake, alert, no acute distress Gen: No acute distress, resting comfortably in bed. HEENT: PERRLA, EOMI, CV: Regular rate and rhythm Pulm: Normal respiratory effort. Abd: Soft, non-tender, non-distended. No guarding or rebound. Ext: No pedal edema. No gross abnormalities. Neuro: Cranially nerves intact. Moving all four extremities. AAOx3 Labs: Labs personally reviewed in [facility] CBC: Recent Labs 05/23/24 0119 05/22/24 1118 05/22/24 0518 05/21/24 1500 05/21/24 0827 05/21/24 0458 05/20/24 1235 05/20/24 0427 05/19/24 0511 WBC 12.66* -- 14.70* 14.25* 15.77* 14.49* 14.66* 15.20* 12.77* HGB 7.8* 6.9* 7.2* 7.8* 7.5* 7.5* 8.4* 7.9* 9.3* PLATELET 381* -- 366* 456* 398* 388* 416* 403* 379* MCV 93.1 -- 93.2* 93.9* 93.1 92.9 93.2* 94.8* 92.9 RDWCV 16.5* -- 16.3* 16.1* 16.1* 16.0* 15.6* 15.8* 15.8* COAG: No results for input(s): PTT, INR, PT in the last 168 hours. CHEM: Recent Labs 05/23/24 0119 05/22/24 0518 05/21/24 0458 05/20/24 0427 05/19/24 0511 05/18/24 1704 05/18/24 0400 05/17/24 0549 CREATININE 2.70* 2.77* 3.04* 2.78* 2.75* 2.64* 2.69* 3.07* BUN 85* 97* 110* 121* 118* 116* 105* 86* NA 139 138 138 138 136 139 134* 134* K 4.9 5.1* 5.1* 5.4* 5.2* 5.4* 5.6* 5.0 CL 108* 110* 111* 109* 108* 110* 107 103 CO2 20* 20* 18* 18* 18* 17* 11* 21* MAGNESIUM 0.86 0.93 0.99 0.99 1.08* -- 1.09* 1.14* CALCIUM 9.1 9.4 9.4 9.4 9.3 9.2 8.8 8.7 HEPATIC: Recent Labs 05/22/24 0518 BILITOT <0.2 BILIDIR <0.2 ALKPHOS 84 AST 18 ALT 42 ALBUMIN 2.6* INFLAMM: Recent Labs 05/21/24 0458 CRP 14.1* IMAGING: Reports and images personally reviewed in [facility]. Images independently interpreted. IR Tunneled Central Venous Access Non-Dialysis Final Result US Retroperitoneal Complete Final Result 1. Very limited exam secondary to patient body habitus and overlying bowel gas. 2. No hydronephrosis on either side. Within the limitations of the exam, no stones seen. 3. Normal bladder contour. Estimated bladder volume at time of scan 446 cc. I have personally reviewed the image(s) and the resident's interpretation and agree with the findings, Teofilo Ruiz MD at 05/20/2024 11:30 AM Electronically signed by: Teofilo Ruiz MD, [facility] ([phone]), at 05/20/2024 11:30 AM Thank you for letting us participate in the care of this patient. If you are a health care provider and have any questions regarding this report, please contact the number above. For patients who have questions, please contact the health care connector that requested your imaging first. Teofilo Ruiz, Staff Physician Electronically Signed Final Report 05/20/2024 11:36 am MRI Foot wwo Contrast Right Final Result 1. Soft tissue irregularity of the tip of the 2nd toe is presumed to correspond to focal soft tissue injury or an open wound. Recommend correlation with physical examination. No rim-enhancing soft tissue abscess. [...] this report, please contact the number below. For patients who have questions please contact the health care connector that requested your imaging first. Electronically signed by: Trinidad Mota MD, [facility] ([phone]), at 05/10/2024 12:56 PM XR Chest One View Final Result Bibasilar atelectasis. Thank you for letting us participate in the care of this patient. If you are a health care provider and have any questions regarding this report, please contact the number below. For patients who have questions please contact the health care connector that requested your imaging first. SCOPY: Reports and images personally reviewed in [facility] OSH RECORDS: Obtained and personally reviewed ASSESSMENT & PLAN: 69 y.o. male with past medical history of PMH of HTN, HFpEF, CKD (bsl Cr ~1.5), IDDM, COPD (not on home O2), rate controlled Afib (Xarelto, dilt, coreg) admitted on 05/10/2024 now s/p 2nd toe amputation for osteo. GI consulted for possible GIB. EGD yesterday showed several small erosions and one non-bleeding duodenal ulcer with adherent clot was found in the first portion of the duodenum; clipped and injected with epi. This AM hemoglobin has remained stable. Recommend continuing PPI and can restart xarelto 48hrs post procedure. Recommendations: - PPI PO BID for two months - monitor H/H daily - avoid NSAIDs - hold xarelto; can restart 48hrs post EGD Patient seen with Dr. Steele. Thank you for involving us in the care of this patient. Please call/page should any further questions arise. Guillermina Quiroga MD PGY-4, Gastroenterology Associated attestation - Tl Steele MD - 05/26/2024 2:54 AM EDT Attending Addendum: I have seen and examined the patient with Dr. Quiroga. We reviewed the medical record and pertinent studies and imaging. My evaluation and physical examination confirms the above findings. The assessment and plan were formulated in discussion with me at the time of the encounter and I agree with them as documented. Tl Steele MD [facility] Gastroenterology * Irene Bravo RN - 05/22/2024 5:52 PM EDT Pt c/o nausea, medicated with 4 mg zofran IVP per Dr. Mena order. LR infusion complete, Central line flushed without difficulty. Alcohol infused cap applied. Report called to Trice. Reviewed procedural report with Trice, informed her of Zofran and that blood transfusion was completed pre procedure. Also notified that pt's genitals very red, warm to touch and excoriated. Pt given procedure report paper copy. Transport arrived to take pt to floor at 1753. * Trice Zhao RN - 05/22/2024 12:47 PM EDT Scaffolder spoke with JACKIE Nuñez from Endo regarding patient HGB being 6.9- she let me know to send him and they would figure out his HGB and getting blood in ENDO. Trice Zhao RN * Tho Gay MD - 05/22/2024 11:06 AM EDT Patient seen and examined in his room. He is going for endoscopy today. He has acute on chronic renal insufficiency. BP 140/79 (BP Location (NBP): Left arm, Patient Position: Lying) Pulse (!) 106 Temp 36 ??C (96.8 ??F) (Oral) Resp 18 Ht 190.5 cm (6' 3) Wt (!) 158.8 kg (350 lb) SpO2 91% BMI 43.75 kg/m?? I/O last 3 completed shifts: In: 1840 [P.O.:184] Out: 4725 [Urine:4725] CBC Lab Results Component Value Date White Blood Cell 14.70 (H) 05/22/2024 Hemoglobin 6.9 (L) 05/22/2024 Hematocrit 21.4 (L) 05/22/2024 Platelet 366 (H) 05/22/2024 Lab Results Component Value Date Sodium 138 05/22/2024 Potassium 5.1 (H) 05/22/2024 Chloride 110 (H) 05/22/2024 Carbon Dioxide 20 (L) 05/22/2024 Blood Urea Nitrogen 97 (H) 05/22/2024 Creatinine 2.77 (H) 05/22/2024 Glucose 121 05/22/2024 We believe he is now at his baseline. He has mild hyperkalemia probably from the blood load. Will continue to follow * Marissa West, RN - 05/22/2024 10:12 AM EDT During VAS Purposeful Rounding, an assessment of your patient's venous access was performed fby theVascular Access Service. The following tasks were performed if needed and communicated to the bedside RN Choose all that apply: [] PIV(s) checked for patency if daily need for flush needs to be performed [] CVAD was checked for patency if daily flush needs to be performed [] IV tubing clamped or capped if needed [] Visual inspection of your patient's central line dressing integrity [x] Review of indications for vascular access [] A photo was taken of your patient's central line [x] Visual inspection of your patient's IV dressing integrity [] Other While rounding an intervention was needed and communicated to the bedside RN Choose all that apply: [] Nonocclusive IV dressing addressed [] Nonocclusive CVAD dressing (please identify type of line) [] Infusion site leaking [] IV not patent and removed [] IV not indicated [] IV placed [] IV restarted [] Implanted Port, PICC or ML dressing changed if needed (either PRN or weekly) [] Other * Lu Mcfarland APRN - 05/22/2024 8:47 AM EDTSummary: Pending discharge ID is treating Jossy SpiveyVioletta Rimma for an 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 Projected end date for IV antibiotic therapy is 06/04/2024. Lab work today shows WBC = 14.70 with ANC = 12.22, Hb = 7.2, and Plts = 366, BUN = 97 and creatinine = 2.77. Yesterday, down-trending CRP = 14.1 mg/L (decreased from 152.4 mg/L ten days ago). There are no recent LFTs seen in the chart and we will ask the Primary team to please obtain LFTs prior to discharge. Moving forward, patient will need weekly safety labs: CBC w/diff, CMP, and CRP. Mr. Shanks will have follow-up in ID on 06/03/2024 at 2 pm for his EOT visit. This is an Onsite appointment. Patient's ID Attending is Dr. Hein. Patient is ready for discharge from an ID point of view. Lu Mcfarland APRN, Infectious Disease 05/22/2024 9:00 AM * Mihaela Galvan MD - 05/22/2024 6:57 AM EDT [facility] Medicine - Red Team Inpatient Progress Note ID: Jossy Shanks is a 69 y.o. year old male with past medical history of PMH of HTN, HFpEF, CKD (bsl Cr ~1.5), IDDM, COPD (not on home O2), rate controlled Afib (Xarelto, dilt, coreg) admitted on 05/10/2024 ( Hospital Day 12 days ) for LE cellulitis 2/2 R foot trauma. Active Hospital Problems Diagnosis Septic shock Resolved Hospital Problems No resolved problems to display. Interval History: - on ceftriaxone, central line in place - denies recent black stools,no dizziness/fatigue/light headedness - restarted home furosemide 40 yst - hsa been using duonebs q4 hours, feels breathing imrpoved - continues to be motivated re working with PT - hoping to go to [employer] today Meds: pantoprazole 40 mg Intravenous BID furosemide 40 mg Oral QAM epoetin leah-epbx 10,000 Units Subcutaneous Daily insulin glargine (Lantus;Semglee) (100 unit/mL) subcutaneous injection 14 Units Subcutaneous Nightly lactobacillius capsule 1 capsule Oral Daily ipratropium-albuteroL 3 mL Nebulization Q4H insulin lispro 1-6 Units Subcutaneous Q4H VLAD cefTRIAXone 2 g Intravenous Q24H insulin lispro 0-8 Units Subcutaneous TID WC carvediloL 25 mg Oral BID dilTIAZem 60 mg Oral Q6H VLAD PRN medications simethicone, ondansetron, oxyCODONE, melatonin, glucose 40% oral geL OR dextrose OR glucagon, acetaminophen Current Facility-Administered Medications Medication Dose Route Frequency simethicone (Gas-X Chew) 80 mg chewable tablet 80 mg 80 mg Oral Q6H PRN ondansetron (pf) (Zofran) (2 mg/mL) injection 4 mg 4 mg Intravenous Q8H PRN oxyCODONE (Roxicodone) tablet 5 mg 5 mg Oral Q4H PRN melatonin tablet 6 mg 6 mg Oral Nightly PRN glucose (Glutose) 40% oral geL 15-30 g of glucose Buccal Q15 Min PRN Or dextrose 10% infusion 250 mL Intravenous Q15 Min PRN Or glucagon (Glucagen) (1 mg/mL) injection solution 1 mg 1 mg Intramuscular Q15 Min PRN acetaminophen (Tylenol) tablet 975 mg 975 mg Oral Q8H PRN Physical Exam: Last value Range last 24 hrs Temperature Temp: 36.5 ??C (97.7 ??F) Temp: [36.2 ??C (97.2 ??F)-36.5 ??C (97.7 ??F)] Heart Rate Heart Rate: (!) 106 Heart Rate: [79-106] Blood Pressure BP: 110/57 BP: (110-147)/(51-79) Respiratory Rate Resp: 18 Resp: [14-27] SpO2 SpO2: 99 % SpO2: [93 %-100 %] Intake/Output Summary (Last 24 hours) at 05/22/2024 0657 Last data filed at 05/22/2024 0418 Gross per 24 hour Intake 941 ml Output 3025 ml Net -2084 ml Patient Vitals for the past 168 hrs: Weight 05/21/24 0348 (!) 158.8 kg (350 lb) Admit wt: 159.8 kg Gen: Lying in bed, NAD Eyes: PERRLA, EOMI, anicteric ENT: moist mucous membranes, CV: Regular rate, irregular rhythm Respiratory: some wheezing, with no rales or rhonchi, good inspiratory effort Skin: edema, dry cracking skin b/l lower extremities with hyperpigmentation and flake, right worse than left. Dark red/brown hue b/l Neuro: CN II-XII grossly intact, without focal deficits Ext: BL LE edema. Bandage over right distal foot Labs: Recent Labs 05/22/24 0518 05/21/24 1500 05/21/24 0827 WBC 14.70* 14.25* 15.77* HGB 7.2* 7.8* 7.5* HCT 22.1* 24.5* 23.0* PLATELET 366* 456* 398* Recent Labs 05/22/2418 05/21/24 0458 05/20/24 0427 NA 138 138 138 K 5.1* 5.1* 5.4* CL 110* 111* 109* CO2 20* 18* 18* BUN 97* 110* 121* CREATININE 2.77* 3.04* 2.78* GLUCOSE 121 151 173 Recent Labs 05/22/2451705/21/24 0458 05/20/24 0427 CALCIUM 9.4 9.4 9.4 MAGNESIUM 0.93 0.99 0.99 PHOS 5.8* 6.2* 5.1* No results for input(s): AST, ALT, ALKPHOS, BILITOT, BILIDIR in the last 168 hours. Imaging: MRI foot 05/10/2024 1. Soft tissue irregularity of the tip of the 2nd toe is presumed to correspond to focal soft tissue injury or an open wound. Recommend correlation with physical examination. No rim-enhancing soft tissue abscess. 2. Tiny 3 mm focus of osteitis of the distal tuft of the 2nd toe. 3. No MR evidence of tenosynovitis. 4. 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 05/12 Right duplex DVT leg: Interpretation RIGHT: No evidence of lower extremity deep venous thrombosis. Posterior tibial and peroneal veins are patent but were not adequately visualized to exclude non-occlusive thrombus 05/12 ANGY B/L Legs: Interpretation: RIGHT: No significant lower extremity arterial occlusive disease identified at rest. Normal ankle/brachial pressure ratios and ankle Doppler waveforms. Unable to obtain a toe pressure due to bandaging. LEFT: No significant lower extremity arterial occlusive disease identified at rest. Normal ankle/brachial pressure ratios and ankle Doppler waveforms. Microbiology: 05/10 blood culture, no growth at 5 days 05/10 skin/superficial wound culture: GNR and GPC 05/14: Tissue culture proximal toe: 1 colony of coagulase-negative Staphylococcus species 05/15: MRSA PCR negative Assessment and Plan: Jossy Shanks is a 69 y.o. year old male with past medical history of HTN, HFpEF, CKD (bsl Cr ~1.5), IDDM, COPD (not on home O2), rate controlled Afib (Xarelto, dilt, coreg) admitted on 05/10/2024 ( Hospital Day 12 days ) for LE cellulitis 2/2 right foot trauma . He continues to feel fine and remains hemodynamically stable. Continues on ceftriaxone per ID with planned continuation upon discharge with OPAT now that speciation has resulted. His creatinine continues to rise though it is not evidently clear what is driving his FISH on CKD. He will need his renalfunction to improve and will need a central line placed prior to discharging with outpatient IV antibiotics. Given his renal insufficiency, considering OPAT with central access vs PICC, to spare future possible dialysis sites. #Right lower extremity cellulitis #R 2nd Toe Osteomyelitis s/p amputation #History of trauma to right foot #Chronic venous stasis, b/l #History of recurrent cellulitis #Septic shock at outside hospital, resolved - S/p R 2nd toe amputation, w staph at prox site - Blood culture no growth at 5 days - ID consulted, appreciated recs: - dc'd Pip-tazo and vanc - c/w CTX until at least 06/04/2024, via central line - Has offloading shoe, c/w pt - Bed ready at [facility] #IDDM Home regiment: 1.2mg liraglutide qd, 20u glargine nightly, 8u lispro tid. - Prev on glargine 14 units meal associated insulin, CHO 60/60/75 and sensitive SSI. - Will continue to titrate as needed #FISH on CKD #Hyponatremia #Hyperkalemia #Hyperphosphatemia - Previous FEUrea consistent with prerenal FISH - C/w BMP daily - Monitor I's and O's - Avoid nephrotoxic agents - C/w low phos and low K diet - Nephro on board, continue toappreciate recs. - Thinking increase in BUN is from possible UGIB #History of COPD - Not on any home inhalers - Continue on DuoNebs, consider albuterol inhaler rx at dc #UGIB? - had been considering diarrhea as adverse effect abx, however iso with drop in H/H and black sticky stools considering cathartic effect of blood - Per C. difficile testing tool, screened, negative - Will continue with PPI at this time, BID - holding xarelto - c/w probiotic - hemoglobin as above, with Hemoglobin: From 05/19 to 05/20 drop of 1.4, but on repeat the drop appeared <1.0. On 05/21 he was stable around 7.5, and GI consulted. 05/22, at 7.2. Pending EGD 05/22 afternoon. Got repeat hemogram, iso of c/f blood loss, upcoming EGD, and availability of bed at [facility]. -ordered T&S in case continues to drop and requires transfusion #?KATIA - several de-sat ovn with noted snoring - referral to sleep medicine on dc #HFpEF #A-fib on Xarelto - Were holding lasix iso pre-renal FISH, resumed - Resumed home dose carvedilol 25 BID 05/13, tolerating well - Home statin - diltiazem IR 60 mg QID - holding Xarelto iso likely GI bleed # Diet: Low Phos and Carb Control diet 60/60/75 CHO counting level 2 # DVT prophylaxis:Heparin # Fluids: NA # Access: 2IV in place # Dispo: pending clinical improvement # Code: Full Code Mihaela Galvan MD 05/22/2024 PGY-3, Internal Medicine Hospital Medicine Red Team - Pager [phone] Associated attestation - Saba Spears MD - 05/22/2024 5:19 PM EDT Attending Attestation and Certification Please see Mihaela Galvan MD's note for details of the patient history of presentation and data.I have discussed, reviewed and agree with the documented History, Physical findings, Assessment andPlan of care. Mr. oJe is a 69 y/o with CKD (as low as 1.5 this admission), DM, COPD, AF on xarelto, admitted with RLE cellulitis and OM s/p 2nd toe amputation with CoNS on tissue culture (plan for 4 weeks CTX 2gm daily until 06/04). CRP improved 152 to 14. Now has central line for antibiotics and OPAT intake. Current issue is GIB with acute blood loss anemia and melena. BUN better today but BUN rise from GIB. Appreciate GI for endoscopy today. Hgb 6.9 on repeat - will transfuse and monitor response. Dispo to [facility] for rehab pending Hgb stability and EGD. I have examined the patient myself and personally reviewed all studies. In addition, I certify thatI am a [facility] credentialed attending provider with admitting privileges and that the patient meets or has met medical necessity to require an inpatient IPI level of care meeting a minimum of two midnights or is on the [facility] inpatient only procedure list (status C) due to: OM requiring IV abx * Lazaro Aaron, HAT TRIMMER - 05/21/2024 4:05 PM EDT Physical Therapy Note Treatment Number PT: 3 Patient profile: Jossy Shanks is a 69 y.o. male admitted on 05/10/[address] Treva Diaz MD. Per note, Jossy Shanks is a 69 y.o. year old male with past medical history of HTN, HFpEF,CKD (bsl Cr ~1.5), IDDM, COPD (not on home O2), rate controlled Afib (Xarelto, dilt, coreg) admitted on 05/10/2024 ( Hospital Day 6 days ) for LE cellulitis 2/2 right foot trauma . Overall doing well, orthopedics was consulted in the MICU with concern for bone involvement. MRI w soft tissue irregularity of 2nd toe with osteitis in the distal tuft of 2nd toe. Amputation of 2nd transmetatarsal on 05/14 Interval History: per Hospital Medicine note 05/21 - on ceftriaxone - pending central line placement with IR for continued access - drop in hemoglobin, no dizziness, increased fatigue, light headedness - continues with DuoNebs every 4 hours, feels breathing imrpoved - continues to be motivated re working with PT - no bm ovn, but prev were black sticky Social History: (per patient report) Home set-up: Lives alone in a one level apartment. Bathroom Set-up: walk in shower Stairs: 4 stairs with unilateral railing to enter home, several thresholds throughout the apartmentonce inside. Reports he was in the process of moving when he got injured. Some of his furniture is still in storage but reports his family can help move it for him before he gets home. Reports he wascamping out before Baseline Mobility: Modified independent using walking sticks outside of his home most of the time. Reports he doesn't use walking sticks inside his home. Equipment at home: walking sticks Fall history: denies any Precautions/Special Considerations: fall risk, high risk for skin breakdown, heel weight bearing inforefoot offloading shoe RLE, incision R 2nd toe, AAT, hx of a-fib per MD notes, hx of COPD per MD notes Activity Orders (From admission to next 72h) Start Ordered 05/14/24 1235 Weight bearing status UNTIL DISCONTINUED Process Instructions: If individualized per extremity weight restrictions are being indicated, please complete a NEW order for EACH extremity. Question Answer Comment Weight bearing of: Custom Custom: WBAT in forefoot offloader shoe Extremity / Laterality: LOWER RIGHT extremity 05/14/24 1232 Unscheduled Activity as tolerated PRN 05/10/24 0217 Mobility and Positioning Recommendations: Pt to perform stand pivot transfer with Min/mod A x 2, with heel weight bearing in forefoot offloading shoe RLE Please encourage up to chair for meal times as able. Subjective: I just feel weak Pt stated when asked how he was Objective: Patient agreeable to physical therapy treatment in conjunction with OT. Pt met resting in bed at beginning of tx session today. Patient demonstrated the following: Pain: tolerable levels reported throughout Vital Signs: WNL Cognition/Vision: WFL Bed Mobility: Supine to Sit: Supervision, head of bed elevated, using bed rail Sit to Supine: N/A, pt remains in chair at end of session Transfers: (adhering to heel weight bearing in forefoot offloading shoe RLE throughout all transfers) Sit to Stand: minimum assist x2 using FWW from heightened bed at first stand, performed 2x for practice from recliner chair with CGAx2 , mod cues for hand placement/technique throughout. Required extra time to come to fully stand with good effort. Stand to Sit: CGA x2 using FWW, cues for hand placement/technique Bed to Chair: CGA x2 with FWW, adhering to heel weight bearing in forefoot offloading shoe RLE throughout all transfers, forward flexed posture. Gait : See above Stairs: DNT Balance: Sitting Static: good with UE support on bed, supervision Sitting Dynamic: good, supervision Standing Static: fair with FWW, CGAx2 Standing Dynamic / Gait: fair (-) with FWW, CGAx2 Education: Provided patient education regarding role of therapy, safety with functional mobility, and discharge planning. Provided patient education on heel weight bearing status of RLE in forefoot offloading shoe and importance of adhering to precaution for optimal healing/recovery. Pt verbalized and demonstrated understanding. Pt left resting in recliner chair with all needs met, with call jasmine in reach, and with chair alarmactive following visit. RN updated regarding pt's response/progress with physical therapy session today. Assessment: Jossy Shanks was seen today for physical therapy treatment session for continuation of POC. Pt alert and engaged throughout session. He had central line placement this morning but willing to work with PT/OT in this PM. Pt required min A to CGAx2 for sit to stand transfers, performed 3x from lower surfaces with cues for techniques. Pt able to maintain heel weight bearing in forefoot offloading shoe RLE throughout tx session today. Pt limited by decreasedactivity tolerance, generalized weakness, and new precautions. Pt currently functioning below theirbaseline level of functional mobility and does not appear to be functioning at a safe level to discharge home at this time. Recommend patient discharge to swing bed rehab facility vs long term facility once medically ready for hospital discharge. Pt will continue to benefit from skilled physical therapy while in the hospital in order to maximize independence and safety with functional mobility and achieve therapeutic goals. Discharge Recommendations: Based on current findings- swing bed rehabilitation facility, long term facility Discharge recommendation is based on the patient's current physical impairments, prior functional status, potential to return to prior level of function, patient motivation, reported home support, potential for functional gains, current level of endurance, reported home environment and anticipated trajectory of progress and may change based on patient progress during this hospitalization. Inpatient Physical Therapy Plan: Therapy Frequency (PT): 2-4 times/wk for therapy interventions as outlined in initial evaluation. Patient agrees with plan as stated. Consult Recommendations: No other consults recommended at this time. Equipment needs: Anticipated Equipment Needs at Discharge (PT): to be determined Goals: To be achieved by 06/16/24: Pt. to demonstrate knowledge of safety limitations and precautions and will appropriately request assistance for functional activities and to mobilize. Pt. to perform bed mobility with modified independence. Pt. to perform transfers with modified independence using FWW while adhering to heel weight bearingin forefoot offloading shoe RLE. Pt. to ambulate 150 feet with modified independence using a a front wheeled walker while adhering to heel weight bearing in forefoot offloading shoe RLE. Pt. to ambulate up/down 4 step/stairs using one rail with LRAD with modified independence. Pt will tolerate progression towards upright with stable vital signs. Total Time: 34 (9135-2615) minutes. TAx2 Lazaro Aaron PTA Pager: [phone] Physical Therapy Inpatient Rehabilitation Department * Penny Rodriguez OT - 05/21/2024 2:20 PM EDT Occupational Therapy Treatment Note 3 Patient Dx: Jossy Shanks is a 69 y.o. year old male with past medical history of CKD (as low as 1.5 this admission), DM, COPD, AF on xarelto, admitted with RLE cellulitis and OM s/p 2nd toe amputation with CoNS on tissue culture (plan for 4 weeks CTX 2gm daily until 06/04 with ID follow-up; if poor wound healing or CRP remaining elevated could extend to 6 weeks). Precautions/Special Considerations: fall risk, activity as tolerated with heel weight bearing RLE in forefoot offloading shoe Interval History: (Per Hospital Medicine on 05/21/2024) - on ceftriaxone - pending central line placement with IR for continued access - drop in hemoglobin, no dizziness, increased fatigue, light headedness - continues with DuoNebs every 4 hours, feels breathing imrpoved - continues to be motivated re working with PT - no bm ovn, but prev were black sticky B. Social History: Patient lives alone in apartment. Home Setup: 4 DINH with left railing into one level place. Bathroom has a walk in shower. Sleeps in a recliner chair. DME: Patient reports crutches, hiking stick, and cane available at home. Baseline ADL/Mobility: Patient reports independence with ADLs/IADLs prior. Patient was driving before admission. Uses a hiking stick for mobility. S: Agreeable to participate. O: Patient seen for skilled OT treatment, and demonstrated the following: Self-care / Functional Mobility: Pt was resting in bed upon arrival, and was willing to participate. Supine to sit with CGA using HOB features and bed rail Dependent to don shoes Sit to stand with CGA-Min A from raised bed Fair static balance in standing with CGA-Min A Bed to chair: Stand and several steps to the chair with CGA. Patient experiencing shortness of breath when mobilizing. Donned new gown with minimal assistance Sit to Stand: CGA, performed x2 from the lower seat-recliner. Patient needed verbal cues for leaning forward when standing upright. Patient was able to tolerate standing for short periods at a time before needing to sit down. Discussed plan to progress towards walking in next session. Patient left seated upright in recliner chair with needs met, call jasmine, and chair alarmed. Cognition: Behavior / Mood: alert and cooperative Alert and oriented to: person, place, and date Follows commands: 1 step, 2 step, and 100% of the time Attention: WFL Safety awareness: decreased insight into deficits Vision: corrective lenses multimedia engineer Endurance: decreased activity tolerance Vitals: Stable on RA. Strength/ROM: global deconditioning; difficulty using forefoot offloading shoe to maintain heel weight bearing Pain: Tolerable during activity. Education: Pt/family/caregiver education ongoing regarding: Role of Occupational Therapy, Range of motion , Activity tolerance, Positioning, Safety during ADL's and functional mobility , Alternating rest/activity , Increased participation in self-care and ADL's within hospital environment , Discharge planning , Transfers, Mobility, Balance strategies, Weightbearing precautions, Activity restrictions, Level of assist and/or supervision required, and Goals Staff Communication: Patient status, treatment, and mobility recommendations discussed with nursing/other staff. ASSESSMENT: Pt was seen for skilled OT treatment for continuation of plan of care. Patient demonstrated progress with being able to stand from a lower surface two times with CGA x2. The patient was feeling more fatigued after a procedure today, but was still agreeable to participating in some activity. The patient was mainly limited by decreased activity tolerance, bracing of the foot, and overall deconditioning. Patient demonstrated improved ability to transfer out of bed and should continue to get up to the chair daily with nursing assistance for mobility. Recommend sub acute level of care once medically ready for discharge. Pt would benefit from further inpatient OT interventions to addre ss performance deficits and maximize participation, independence quality of life, health and wellness, prevention, and safety with activities of daily living. Discharge Recommendation: long term facility, swing bed rehabilitation facility Equipment Recommendations: Equipment Needs Upon Discharge (OT): to be determined Daily schedule / Staff Recommendations: Utilize upright chair position using bed features or transfer to recliner chair as appropriate withmechanical lift Sit upright for all meals/meal times Encourage participation in ADL's by providing set up assist on tray table and physical assist only as needed Occupational Therapy Goals: To be achieved by 05/30/2024. Patient will demonstrate sponge bathe with moderate assistance. Patient will transfer from the bed to the chair with moderate assistance and LRD. Patient will perform lower body dressing with moderate assistance and AE as needed. Patient will demonstrate fair standing balance for functional transfers with moderate assistance and LRD. Patient will demonstrate standing grooming routine for ~5 minutes at the sink. Patient will verbalize precautions for the right foot and demonstrate adherence to them with all ADL routines and transfers. Therapy Frequency (OT): 2-3 times/wk Total Minutes, Occupational Therapy: 40 ([facility] x3 ([id number])) Pager: [phone] Penny Rodriguez OT Occupational Therapy Rehabilitation Department * Tho Gay MD - 05/21/2024 10:06 AM EDT Patient is seen and examined. We are seeing him for acute kidney injury. BP 144/66 (BP Location (NBP): Right arm) Pulse 88 Temp 36.2 ??C (97.2 ??F) (Axillary) Resp 20 Ht 190.5 cm (6' 3) Wt (!) 158.8 kg (350 lb) SpO2 98% BMI 43.75 kg/m?? I/O last 3 completed shifts: In: 1777 [P.O.:1742; I.V.:35] Out: 3675 [Urine:3675] CBC Lab Results Component Value Date White Blood Cell 15.77 (H) 05/21/2024 Hemoglobin 7.5 (L) 05/21/2024 Hematocrit 23.0 (L) 05/21/2024 Platelet 398 (H) 05/21/2024 Lab Results Component Value Date Sodium 138 05/21/2024 Potassium 5.1 (H) 05/21/2024 Chloride 111 (H) 05/21/2024 Carbon Dioxide 18 (L) 05/21/2024 Blood Urea Nitrogen 110 (H) 05/21/2024 Creatinine 3.04 (H) 05/21/2024 Glucose 151 05/21/2024 His creatinine is trending up again, perhaps related to his GI bleed. His potassium is slightly high and we will put him on a low potassium and low phosphate diet. His hemoglobin is low and perhaps giving him 10,000 units of erythropoietin subcu for 3 days in a row would be helpful. Will continue to follow * Sky Shelton RN - 05/21/2024 9:16 AM EDT ANGIO NURSING DATABASE Name: Jossy Shanks Date of : 1955 AGE: 69 y.o. [address]: [address] [place] [id number] (home) Mobile: Telephone Information: Referring Provider: Anna Barber REASON FOR VISIT: Order Questions Answers Is the patient on anticoagulant / antiplatelet therapy ? DOAC (Direct Oral Anticoagulant) Reason for exam and clinical history: 69M w/ R 2nd toe osteo s/p amputation. ID recommending IV abx. Not candidate for PICC d/t CKD. Is the patient taking any anticoagulants and/or antiplatelet meds? Yes Is patient awake, alert, and consentable? Yes Does patient need assist to stand? Yes Does Patient have any mobility limitations (e.g. spinal precautions) Yes Does patient require constant supervision? No Is patient over 450 lbs (200 kg) No If cardiac monitoring, can EKG leads be removed? Yes Does patient have a pacemaker? No Does patient have a Chest Tube? No Is there a language / communication barrier? No Planned procedure: Tunneled non-HD central venous catheter implant - single lumen Labs to be performed day of procedure: No labs Sedation: Moderate (Conscious sedation) Prophylactic antibiotic : None Contrast: No contrast Additional medications for procedure: Lidocaine Position: Supine Consent: Pending Medications to discontinue (and days held): None Case Urgency:: D2- Within 24 hours (i.e. can be next day) No Known Allergies Pertinent PMH: Patient Active Problem List Diagnosis Code Degenerative lumbar spinal stenosis M48.061 Septic shock A41.9, R65.21 Date/Procedure Meds Given/Comments 05/21/24 Non-HD tunneled line placement 100 mcg Fentanyl, 2 mg Versed 1039 to procedure room 3 via stretcher. Onto table supine. All monitors, O2, safety strap in place.Meds per protocol. Laboratory Results: Lab Results Component Value Date INR 2.5 05/10/2024 Lab Results Component Value Date CREATININE 3.04 (H) 05/21/2024 CREATININE 2.88 (H) 05/16/2024 Lab Results Component Value Date K 5.1 (H) 05/21/2024 K 5.0 05/16/2024 Lab Results Component Value Date PLATELET 388 (H) 05/21/2024 PLATELET 317 05/16/2024 * Mihaela Galvan MD - 05/21/2024 6:30 AM EDT [facility] Medicine - Red Team Inpatient Progress Note ID: Jossy Shanks is a 69 y.o. year old male with past medical history of PMH of HTN, HFpEF, CKD (bsl Cr ~1.5), IDDM, COPD (not on home O2), rate controlled Afib (Xarelto, dilt, coreg) admitted on 05/10/2024 ( Hospital Day 11 days ) for LE cellulitis 2/2 R foot trauma. Active Hospital Problems Diagnosis Septic shock Resolved Hospital Problems No resolved problems to display. Interval History: - on ceftriaxone - pending central line placement with IR for continued access - drop in hemoglobin, no dizziness, increased fatigue, light headedness - continues with DuoNebs every 4 hours, feels breathing imrpoved - continues to be motivated re working with PT - no bm ovn, but prev were black sticky Meds: pantoprazole 40 mg Intravenous Daily rivaroxaban 15 mg Oral QPM insulin glargine (Lantus;Semglee) (100 unit/mL) subcutaneous injection 14 Units Subcutaneous Nightly lactobacillius capsule 1 capsule Oral Daily ipratropium-albuteroL 3 mL Nebulization Q4H insulin lispro 1-6 Units Subcutaneous Q4H VLAD cefTRIAXone 2 g Intravenous Q24H insulin lispro 0-8 Units Subcutaneous TID WC carvediloL 25 mg Oral BID dilTIAZem 60 mg Oral Q6H VLAD PRN medications simethicone, ondansetron, oxyCODONE, melatonin, glucose 40% oral geL OR dextrose OR glucagon, acetaminophen Current Facility-Administered Medications Medication Dose Route Frequency simethicone (Gas-X Chew) 80 mg chewable tablet 80 mg 80 mg Oral Q6H PRN ondansetron (pf) (Zofran) (2 mg/mL) injection 4 mg 4 mg Intravenous Q8H PRN oxyCODONE (Roxicodone) tablet 5 mg 5 mg Oral Q4H PRN melatonin tablet 6 mg 6 mg Oral Nightly PRN glucose (Glutose) 40% oral geL 15-30 g of glucose Buccal Q15 Min PRN Or dextrose 10% infusion 250 mL Intravenous Q15 Min PRN Or glucagon (Glucagen) (1 mg/mL) injection solution 1 mg 1 mg Intramuscular Q15 Min PRN acetaminophen (Tylenol) tablet 975 mg 975 mg Oral Q8H PRN Physical Exam: Last value Range last 24 hrs Temperature Temp: 36.5 ??C (97.7 ??F) Temp: [36.5 ??C (97.7 ??F)-36.7 ??C (98.1 ??F)] Heart Rate Heart Rate: 79 Heart Rate: -- Blood Pressure BP: 120/61 BP: (120-155)/(61-84) Respiratory Rate Resp: 18 Resp: [16-18] SpO2 SpO2: 95 % SpO2: [95 %-99 %] Intake/Output Summary (Last 24 hours) at 05/21/2024 0631 Last data filed at 05/21/2024 0600 Gross per 24 hour Intake 1777 ml Output 2725 ml Net -948 ml Patient Vitals for the past 168 hrs: Weight 05/21/24 0348 (!) 158.8 kg (350 lb) 05/14/24 0950 (!) 157.5 kg (347 lb 3.6 oz) Admit wt: 159.8 kg Gen: Lying in bed, NAD Eyes: PERRLA, EOMI, anicteric ENT: moist mucous membranes, CV: Regular rate, irregular rhythm Respiratory: some wheezing, with no rales or rhonchi, good inspiratory effort Skin: edema, dry cracking skin b/l lower extremities with hyperpigmentation and flake, right worse than left. Dark pink b/l hue Neuro: CN II-XII grossly intact, without focal deficits Ext: BL LE edema. Bandage over right distal foot Labs: Recent Labs 05/21/248 05/20/24 1235 05/20/24 0427 WBC 14.49* 14.66* 15.20* HGB 7.5* 8.4* 7.9* HCT 23.6* 26.2* 25.5* PLATELET 388* 416* 403* Recent Labs 05/21/248 05/20/24 0427 05/19/24 0511 NA 138 138 136 K 5.1* 5.4* 5.2* CL 111* 109* 108* CO2 18* 18* 18* BUN 110* 121* 118* CREATININE 3.04* 2.78* 2.75* GLUCOSE 151 173 162 Recent Labs 05/21/24 0458 05/20/24 0427 05/19/24 0511 CALCIUM 9.4 9.4 9.3 MAGNESIUM 0.99 0.99 1.08* PHOS 6.2* 5.1* 5.1* No results for input(s): AST, ALT, ALKPHOS, BILITOT, BILIDIR in the last 168 hours. Imaging: MRI foot 05/10/2024 1. Soft tissue irregularity of the tip of the 2nd toe is presumed to correspond to focal soft tissue injury or an open wound. Recommend correlation with physical examination. No rim-enhancing soft tissue abscess. 2. Tiny 3 mm focus of osteitis of the distal tuft of the 2nd toe. 3. No MR evidence of tenosynovitis. 4. 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 05/12 Right duplex DVT leg: Interpretation RIGHT: No evidence of lower extremity deep venous thrombosis. Posterior tibial and peroneal veins are patent but were not adequately visualized to exclude non-occlusive thrombus 05/12 ANGY B/L Legs: Interpretation: RIGHT: No significant lower extremity arterial occlusive disease identified at rest. Normal ankle/brachial pressure ratios and ankle Doppler waveforms. Unable to obtain a toe pressure due to bandaging. LEFT: No significant lower extremity arterial occlusive disease identified at rest. Normal ankle/brachial pressure ratios and ankle Doppler waveforms. Microbiology: 05/10 blood culture, no growth at 5 days 05/10 skin/superficial wound culture: GNR and GPC 05/14: Tissue culture proximal toe: 1 colony of coagulase-negative Staphylococcus species 05/15: MRSA PCR negative Assessment and Plan: Jossy Shanks is a 69 y.o. year old male with past medical history of HTN, HFpEF, CKD (bsl Cr ~1.5), IDDM, COPD (not on home O2), rate controlled Afib (Xarelto, dilt, coreg) admitted on 05/10/2024 ( Hospital Day 11 days ) for LE cellulitis 2/2 right foot trauma . He continues to feel fine and remains hemodynamically stable. Continues on ceftriaxone per ID with planned continuation upon discharge with OPAT now that speciation has resulted. His creatinine continues to rise though it is not evidently clear what is driving his FISH on CKD. He will need his renalfunction to improve and will need a central line placed prior to discharging with outpatient IV antibiotics. Given his renal insufficiency, considering OPAT with central access vs PICC, to spare future possible dialysis sites. #Right lower extremity cellulitis #R 2nd Toe Osteomyelitis s/p amputation #History of trauma to right foot #Chronic venous stasis, b/l #History of recurrent cellulitis #Septic shock at outside hospital, resolved S/p R 2nd toe amputation, w staph at prox site Blood culture no growth at 5 days ID following, appreciate recs: dc'd Pip-tazo and vanc c/w CTX Pending central line today Has offloading shoe, c/w pt Pending placement outpt #IDDM Home regiment: 1.2mg liraglutide qd, 20u glargine nightly, 8u lispro tid. Prev on glargine 14 units meal associated insulin, CHO 60/60/75 and sensitive SSI. Will continue to titrate as needed #FISH on CKD #Hyponatremia #Hyperkalemia #Hyperphosphatemia Previous FEUrea consistent with prerenal FISH C/w BMP daily Monitor I's and O's Avoid nephrotoxic agents C/w low phos diet Nephro on board. Given increase in BUN not clearly linked to NPO status, vanc levels, or hydration.Now thinking increase in BUN is from UGIB #History of COPD Not on any home inhalers Continue on DuoNebs q4 hours # Diarrhea, improved #UGIB? - had been considering diarrhea as adverse effect abx, however iso with drop in H/H and black sticky stools considering cathartic effect of blood - Per C. difficile testing tool, screened, negative - drob in hemoglobin 9.3 to 7.9 yesterday, wih repeat in afternoon at 8.4. Thought possible slow UGIB, was on PPI. However with repeat down to 7.5 this am, will consult GI for further eval - Will continue with PPI at this time, BID - holding xarelto - c/w probiotic #?KATIA - several de-sat ovn with noted snoring - referral to sleep medicine on dc #HFpEF #A-fib on Xarelto Were holding lasix iso pre-renal FISH, resumed Resumed home dose carvedilol 25 BID 05/13, tolerating well Home statin diltiazem IR 60 mg QID holding Xarelto iso likely GI bleed # Diet: Low Phos and Carb Control diet 60/60/75 CHO counting level 2 # DVT prophylaxis:Heparin # Fluids: NA # Access: 2IV in place # Dispo: pending clinical improvement # Code: Full Code Mihaela Galvan MD 05/21/2024 PGY-3, Internal Medicine Hospital Medicine Red Team - Pager [phone] Associated attestation - Saba Spears MD - 05/21/2024 10:31 PM EDT Attending Attestation and Certification Please see Mihaela Galvan MD's note for details of the patient history of presentation and data.I have discussed, reviewed and agree with the documented History, Physical findings, Assessment andPlan of care. Mr. Joe is a 69 y/o with CKD (as low as 1.5 this admission), DM, COPD, AF on xarelto, admitted with RLE cellulitis and OM s/p 2nd toe amputation with CoNS on tissue culture (plan for 4 weeks CTX 2gm daily until 06/04). CRP improved 152 to 14. Now has central line for antibiotics CKD with slight bump in Cr.. BUN elevation with melena and Hgb drop likely from GIB bleed. PPI BID,hold A/C (for AF). Hgb now stable in mid 7s. Appreciate GI consult. Dispo to [facility] pending Hgb and EGD. I have examined the patient myself and personally reviewed all studies. In addition, I certify thatI am a D-H credentialed attending provider with admitting privileges and that the patient meets or has met medical necessity to require an inpatient IPI level of care meeting a minimum of two midnights or is on the CMS inpatient only procedure list (status C) due to: OM requiring IV abx * Tho Gay MD - 05/20/2024 9:53 AM EDT Patient seen in follow-up. He apparently is having a GI bleed which explains the elevation in BUN. BP 134/66 (BP Location (NBP): Left arm, Patient Position: Lying) Pulse 79 Temp 36.5 ??C (97.7 ??F) (Axillary) Resp 18 Ht 190.5 cm (6' 3) Wt (!) 157.5 kg (347 lb 3.6 oz) SpO2 99% BMI 43.40 kg/m?? I/O last 3 completed shifts: In: 721 [P.O.:721] Out: 3375 [Urine:3375] CBC Lab Results Component Value Date White Blood Cell 15.20 (H) 05/20/2024 Hemoglobin 7.9 (L) 05/20/2024 Hematocrit 25.5 (L) 05/20/2024 Platelet 403 (H) 05/20/2024 Lab Results Component Value Date Sodium 138 05/20/2024 Potassium 5.4 (H) 05/20/2024 Chloride 109 (H) 05/20/2024 Carbon Dioxide 18 (L) 05/20/2024 Blood Urea Nitrogen 121 (H) 05/20/2024 Creatinine 2.78 (H) 05/20/2024 Glucose 173 05/20/2024 In spite of this his creatinine is stable this morning. At this point he is certainly at risk for further FISH but we will just continue to follow his creatinine. He needs to have follow-up as an outpatient with with nephrology. Will continue to follow for few more days * Mihaela Galvan MD - 05/20/2024 6:20 AM EDT [facility] Medicine - Red Team Inpatient Progress Note ID: Jossy Shanks is a 69 y.o. year old male with past medical history of PMH of HTN, HFpEF, CKD (bsl Cr ~1.5), IDDM, COPD (not on home O2), rate controlled Afib (Xarelto, dilt, coreg) admitted on 05/10/2024 ( Hospital Day 10 days ) for LE cellulitis 2/2 R foot trauma. Active Hospital Problems Diagnosis Septic shock Resolved Hospital Problems No resolved problems to display. Interval History: --Tissue speciate 1 colony of coagulase-negative Staphylococcus species - c/w on ceftriaxone - loose black bm ovn, sticky -Has been using DuoNebs every 4 hours, feels breathing imrpoved - Enjoyed working with PT able to sit to stand several times, and several assisted steps - No acute concerns. Meds: insulin glargine (Lantus;Semglee) (100 unit/mL) subcutaneous injection 14 Units Subcutaneous Nightly lactobacillius capsule 1 capsule Oral Daily ipratropium-albuteroL 3 mL Nebulization Q4H insulin lispro 1-6 Units Subcutaneous Q4H VLAD rivaroxaban 15 mg Oral Daily cefTRIAXone 2 g Intravenous Q24H insulin lispro 0-8 Units Subcutaneous TID WC carvediloL 25 mg Oral BID dilTIAZem 60 mg Oral Q6H VLAD PRN medications simethicone, ondansetron, oxyCODONE, melatonin, glucose 40% oral geL OR dextrose OR glucagon, acetaminophen Current Facility-Administered Medications Medication Dose Route Frequency simethicone (Gas-X Chew) 80 mg chewable tablet 80 mg 80 mg Oral Q6H PRN ondansetron (pf) (Zofran) (2 mg/mL) injection 4 mg 4 mg Intravenous Q8H PRN oxyCODONE (Roxicodone) tablet 5 mg 5 mg Oral Q4H PRN melatonin tablet 6 mg 6 mg Oral Nightly PRN glucose (Glutose) 40% oral geL 15-30 g of glucose Buccal Q15 Min PRN Or dextrose 10% infusion 250 mL Intravenous Q15 Min PRN Or glucagon (Glucagen) (1 mg/mL) injection solution 1 mg 1 mg Intramuscular Q15 Min PRN acetaminophen (Tylenol) tablet 975 mg 975 mg Oral Q8H PRN Physical Exam: Last value Range last 24 hrs Temperature Temp: 36.5 ??C (97.7 ??F) Temp: [36.3 ??C (97.3 ??F)-36.8 ??C (98.2 ??F)] Heart Rate Heart Rate: 79 Heart Rate: -- Blood Pressure BP: 133/72 BP: (128-156)/(64-93) Respiratory Rate Resp: 18 Resp: [18] SpO2 SpO2: 97 % SpO2: [96 %-99 %] Intake/Output Summary (Last 24 hours) at 05/20/2024 0620 Last data filed at 05/20/2024 0200 Gross per 24 hour Intake 721 ml Output 1875 ml Net -1154 ml Patient Vitals for the past 168 hrs: Weight 05/14/24 0950 (!) 157.5 kg (347 lb 3.6 oz) Admit wt: 159.8 kg Gen: Lying in bed, NAD Eyes: PERRLA, EOMI, anicteric ENT: moist mucous membranes, CV: Regular rate, irregular rhythm Respiratory: No wheezing, with no rales or rhonchi, good inspiratory effort Skin: edema, dry cracking skin b/l lower extremities with hyperpigmentation and flake, right worse than left. Decreased redness bilaterally, now more of a pink hue Neuro: CN II-XII grossly intact, without focal deficits Ext: b/l le edema. Bandage over right distal foot Labs: Recent Labs 05/20/247 05/19/24 0511 05/18/24 0401 WBC 15.20* 12.77* 9.84* HGB 7.9* 9.3* 9.6* HCT 25.5* 28.9* 31.4* PLATELET 403* 379* 335 Recent Labs 05/19/24 0511 05/18/24 1704 05/18/24 0400 NA 136 139 134* K 5.2* 5.4* 5.6* CL 108* 110* 107 CO2 18* 17* 11* BUN 118* 116* 105* CREATININE 2.75* 2.64* 2.69* GLUCOSE 162 170 144 Recent Labs 05/20/2442605/19/24 0511 05/18/24 1704 05/18/24 0400 CALCIUM -- 9.3 9.2 8.8 MAGNESIUM 0.99 1.08* -- 1.09* PHOS 5.1* 5.1* -- 4.7* No results for input(s): AST, ALT, ALKPHOS, BILITOT, BILIDIR in the last 168 hours. Imaging: MRI foot 05/10/2024 1. Soft tissue irregularity of the tip of the 2nd toe is presumed to correspond to focal soft tissue injury or an open wound. Recommend correlation with physical examination. No rim-enhancing soft tissue abscess. 2. Tiny 3 mm focus of osteitis of the distal tuft of the 2nd toe. 3. No MR evidence of tenosynovitis. 4. 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 05/12 Right duplex DVT leg: Interpretation RIGHT: No evidence of lower extremity deep venous thrombosis. Posterior tibial and peroneal veins are patent but were not adequately visualized to exclude non-occlusive thrombus 05/12 ANGY B/L Legs: Interpretation: RIGHT: No significant lower extremity arterial occlusive disease identified at rest. Normal ankle/brachial pressure ratios and ankle Doppler waveforms. Unable to obtain a toe pressure due to bandaging. LEFT: No significant lower extremity arterial occlusive disease identified at rest. Normal ankle/brachial pressure ratios and ankle Doppler waveforms. Microbiology: 05/10 blood culture, no growth at 5 days 05/10 skin/superficial wound culture: GNR and GPC 05/14: Tissue culture proximal toe: 1 colony of coagulase-negative Staphylococcus species 05/15: MRSA PCR negative Assessment and Plan: Jossy Shanks is a 69 y.o. year old male with past medical history of HTN, HFpEF, CKD (bsl Cr ~1.5), IDDM, COPD (not on home O2), rate controlled Afib (Xarelto, dilt, coreg) admitted on 05/10/2024 ( Hospital Day 10 days ) for LE cellulitis 2/2 right foot trauma . He continues to feel fine and remains hemodynamically stable. Continues on ceftriaxone per ID with planned continuation upon discharge with OPAT now that speciation has resulted. His creatinine continues to rise though it is not evidently clear what is driving his FISH on CKD. He will need his renalfunction to improve and will need a central line placed prior to discharging with outpatient IV antibiotics. Given his renal insufficiency, considering OPAT with central access vs PICC, to spare future possible dialysis sites. #Right lower extremity cellulitis #R 2nd Toe Osteomyelitis s/p amputation #History of trauma to right foot #Chronic venous stasis, b/l #History of recurrent cellulitis #Septic shock at outside hospital, resolved MRI completed S/p R 2nd toe amputation Reviewed finalized RLE duplex and ANGY final read Blood culture no growth at 5 days ID following, appreciate recs: dc'd Pip-tazo and vanc c/w CTX Planning for [facility] central line, instead of PICC Has offloading shoe, c/w pt Requests have been sent for outpt beds #IDDM Home regiment: 1.2mg liraglutide qd, 20u glargine nightly, 8u lispro tid. Continue on glargine 14 units meal associated insulin, CHO 60/60/75 and sensitive SSI. Hyperglycemic 8/1 am after resumption insulin regimen, shifting back to nighty glargine Will continue to titrate as needd #FISH on CKD #Hyponatremia #Hyperkalemia #Hyperphosphatemia Previous FEUrea consistent with prerenal FISH C/w BMP daily and daily weights Monitor I's and O's Avoid nephrotoxic agents C/w low phos diet Consult Nephro given increase in BUN not clearly linked to NPO status, vanc levels, or hydration, however now likely given increased hgb in stool #History of COPD Not on any home inhalers Continue on DuoNebs q4 hours # Diarrhea, improving #LGIB? - May be secondary to antibiotic use, had been considering adverse effect - however, now with drop in H/H and black sticky stools. Considering cathartic effect of blood - Per C. difficile testing tool, screened, negative - Will continue with PPI at this time - c/w probiotic #?KATIA - several de-sat ovn with noted snoring - referral to sleep medicine on dc #HFpEF #A-fib on Xarelto Holding home lasix iso possible GI bleed Resumed home dose carvedilol 25 BID 05/13, tolerating well Home statin diltiazem IR 60 mg QID resumed Xarelto # Diet: Low Phos and Carb Control diet 60/60/75 CHO counting level 2 # DVT prophylaxis:Heparin, holding for pre-op # Fluids: NA # Access: 2IV in place # Dispo: pending clinical improvement # Code: Full Code Mihaela Galvan MD 05/20/2024 PGY-3, Internal Medicine [facility] Medicine Red Team - Pager [phone] Associated attestation - Saba Spears MD - 05/20/2024 8:33 PM EDT Attending Attestation and Certification Please see Mihaela Galvan MD's note for details of the patient history of presentation and data.I have discussed, reviewed and agree with the documented History, Physical findings, Assessment andPlan of care. Mr. Joe is a 69 y/o with CKD (as low as 1.5 this admission), DM, COPD, AF on xarelto, admitted with RLE cellulitis and OM s/p 2nd toe amputation with CoNS on tissue culture (plan for 4 weeks CTX 2gm daily until 06/04 with ID follow-up; if poor wound healing or CRP remaining elevated could extend to 6 weeks). Cr has stabilized and may be her baseline. BUN elevation now with melena and Hgb drop likely from GIB contributing. PPI, hold A/C (for AF). If drops further or ongoing melena then engage GI. Will need IR line given CKD and avoiding PICC. PT/OT recommending swing/SNF. I have examined the patient myself and personally reviewed all studies. In addition, I certify thatI am a D-H credentialed attending provider with admitting privileges and that the patient meets or has met medical necessity to require an inpatient IPI level of care meeting a minimum of two midnights or is on the [facility] inpatient only procedure list (status C) due to: OM requiring IV abx * Alma Ho, PT - 05/19/2024 11:23 AM EDT Physical Therapy Note Treatment Number PT: 2 Patient profile: Jossy Shanks is a 69 y.o. male admitted on 05/10/[address] Treva Diaz MD. Per note, Jossy Shanks is a 69 y.o. year old male with past medical history of HTN, HFpEF,CKD (bsl Cr ~1.5), IDDM, COPD (not on home O2), rate controlled Afib (Xarelto, dilt, coreg) admitted on 05/10/2024 ( Hospital Day 6 days ) for LE cellulitis 2/2 right foot trauma . Overall doing well, orthopedics was consulted in the MICU with concern for bone involvement. MRI w soft tissue irregularity of 2nd toe with osteitis in the distal tuft of 2nd toe. Amputation of 2nd transmetatarsal on 05/14 Interval History: Per note: Interval History: --Tissue speciate station with 1 colony of coagulase-negative Staphylococcus species -Continued on ceftriaxone -Has been having frequent loose stools, brown green-black, 3-5 yesterday, several already this morning -Has been using DuoNebs every 4 hours with improvement Social History: (per patient report) Home set-up: Lives alone in a one level apartment. Bathroom Set-up: walk in shower Stairs: 4 stairs with unilateral railing to enter home, several thresholds throughout the apartmentonce inside. Reports he was in the process of moving when he got injured. Some of his furniture is still in storage but reports his family can help move it for him before he gets home. Reports he wascamping out before Baseline Mobility: Modified independent using walking sticks outside of his home most of the time. Reports he doesn't use walking sticks inside his home. Equipment at home: walking sticks Fall history: denies any Precautions/Special Considerations: fall risk, high risk for skin breakdown, heel weight bearing inforefoot offloading shoe RLE, incision R 2nd toe, AAT, hx of a-fib per MD notes, hx of COPD per MD notes Activity Orders (From admission to next 72h) Start Ordered 05/14/24 1235 Weight bearing status UNTIL DISCONTINUED Process Instructions: If individualized per extremity weight restrictions are being indicated, please complete a NEW order for EACH extremity. Question Answer Comment Weight bearing of: Custom Custom: WBAT in forefoot offloader shoe Extremity / Laterality: LOWER RIGHT extremity 05/14/24 1232 Unscheduled Activity as tolerated PRN 05/10/24 0217 Mobility and Positioning Recommendations: Pt.to utilize mechanical lift for transfers out of bed with nursing staff. Please encourage up to chair for meal times as able. Subjective: I still feel weak Objective: Patient agreeable to physical therapy treatment session today. Pt met resting in bed at beginning of tx session today. Patient demonstrated the following: Pain: tolerable levels reported throughout Vital Signs: HR: 80 bpm SpO2: 99% room air BP: 131/82 mmHg (seated edge of bed) > 122/71 mmHg (seated edge of bed after standing, endorsinglightheadedness that subsided after several minutes) Cognition/Vision: WFL Bed Mobility: Supine to Sit: CGA, head of bed elevated, using bed rail, cues for technique Sit to Supine: Tiffany, head of bed elevated, using bed rail Transfers: (adhering to heel weight bearing in forefoot offloading shoe RLE throughout all transfers/weight bearing activities today) Sit to Stand: moderate assist x2 using FWW from heightened bed, performed 3x for practice, cues forhand placement/technique throughout, pt unable to perform from regular bed height today, pt took several steps next to bed and marched in place while standing Stand to Sit: minimal assist x2 using FWW, cues for hand placement/technique Bed to Chair: unable d/t pt not able to stand from low surface of chair Gait : (adhering to heel weight bearing in forefoot offloading shoe RLE throughout all transfers/weight bearing activities today) Distance: ~2 ft laterally next to bed Device used: FWW, forefoot offloading shoe on RLE Level of assist: minimal assist x2 Gait mechanics: unsteady, decreased foot clearance, decreased speed, decreased step length, limitedassessment d/t short distance, cues for heel weight bearing in forefoot offloading shoe Stairs: DNT Balance: Sitting Static: fair, CGA Sitting Dynamic: fair, CGA Standing Static: poor, Tiffany x2 with FWW Standing Dynamic / Gait: poor, Tiffany x2 with FWW Education: Provided patient education regarding role of therapy, safety with functional mobility, and discharge planning. Provided patient education on heel weight bearing status of RLE in forefoot offloading shoe and importance of adhering to precaution for optimal healing/recovery. Pt verbalized and demonstrated understanding. Therex: (adhering to heel weight bearing in forefoot offloading shoe RLE throughout all transfers/weight bearing activities today) -Standing marches 3x10 with FWW with Tiffany x2 next to bed, cues for technique, required extended seated rest break in between each set d/t dyspnea and fatigue Pt left resting in bed with all needs met, with call jasmine in reach, and with bed alarm active with B heels floated following visit. RN updated regarding pt's response/progress with physical therapy session today. Assessment: Jossy Shanks was seen today for physical therapy treatment session for continuation of POC. Pt continues to require assistance for all functional mobility at this time. Pt demonstrated supine<>sit transfer with CGA-Tiffany with head of bed elevated and using bed rail. Pt demonstrated sit<>stand transfer with FWW with moderate assist x2 from heightened bed (performed 3x during session) with max cues for technique while adhering to heel weight bearing in forefoot offloadingshoe on RLE. Pt unable to stand from regular bed/chair height today d/t generalized weakness. Pt took several steps next to bed with FWW and performed several sets of standing marches for strengthening/endurance with FWW with minimal assist x2. Pt adhering to heel weight bearing in forefoot offloadi ng shoe RLE throughout tx session today. Deferred pt transferring to recliner chair today due to pt's inability to stand from low surfaces. Pt limited during session due to decreased activity tolerance, generalized weakness, new precautions and dyspnea, requiring frequent seated rest breaks to recover and to decrease dyspnea. Pt currently functioning below their baseline level of functional mobility and does not appear to be functioning at a safe level to discharge home at this time. Recommend patient discharge to swing bed rehab facility vs long term facility once medically ready for hospital discharge. Pt will continue to benefit from skilled physical therapy while in the hospital in order to maximize independence and safety with functional mobility and achieve therapeutic goals. Discharge Recommendations: Based on current findings- swing bed rehabilitation facility, long term facility Discharge recommendation is based on the patient's current physical impairments, prior functional status, potential to return to prior level of function, patient motivation, reported home support, potential for functional gains, current level of endurance, reported home environment and anticipated trajectory of progress and may change based on patient progress during this hospitalization. Inpatient Physical Therapy Plan: Therapy Frequency (PT): 2-4 times/wk for therapy interventions as outlined in initial evaluation. Patient agrees with plan as stated. Consult Recommendations: No other consults recommended at this time. Equipment needs: Anticipated Equipment Needs at Discharge (PT): to be determined Goals: To be achieved by 06/16/24: Pt. to demonstrate knowledge of safety limitations and precautions and will appropriately request assistance for functional activities and to mobilize. Pt. to perform bed mobility with modified independence. Pt. to perform transfers with modified independence using FWW while adhering to heel weight bearingin forefoot offloading shoe RLE. Pt. to ambulate 150 feet with modified independence using a a front wheeled walker while adhering to heel weight bearing in forefoot offloading shoe RLE. Pt. to ambulate up/down 4 step/stairs using one rail with LRAD with modified independence. Pt will tolerate progression towards upright with stable vital signs. Time IN / OUT: 11:23-12:01 Total Time: 38 minutes Alma Ho PT, Doctor of Physical Therapy Pager: [phone] Physical Therapy Inpatient Rehabilitation Department * Rebeca Moeller OT - 05/19/2024 11:13 AM EDT Occupational Therapy Treatment Note 2 Patient Dx: Jossy Shanks is a 69 y.o. year old male with past medical history of CKD (as low as 1.5 this admission), DM, COPD, AF on xarelto, admitted with RLE cellulitis and OM s/p 2nd toe amputation with CoNS on tissue culture (plan for 4 weeks CTX 2gm daily until 06/04 with ID follow-up; if poor wound healing or CRP remaining elevated could extend to 6 weeks). Precautions/Special Considerations: fall risk, activity as tolerated with heel weight bearing RLE in forefoot offloading shoe Interval History: (Per Hospital Medicine note 05/19) - FISH with Cr stabilized and good UOP - but BUN [place] over past 2 days. - No uremic symptoms. - Hgb stable without evidence of GIB. Social History: Patient lives alone in apartment. Home Setup: 4 DINH with left railing into one level place. Bathroom has a walk in shower. Sleeps in a recliner chair. DME: Patient reports crutches, hiking stick, and cane available at home. Baseline ADL/Mobility: Patient reports independence with ADLs/IADLs prior. Patient was driving before admission. Uses a hiking stick for mobility. S: Agreeable to participate. O: Patient seen for skilled OT treatment, and demonstrated the following: Self-care / Functional Mobility: Pt was resting in bed upon arrival, and was willing to participate. Supine to sit with CGA using HOB features. Dependent to don socks and shoes. Dependent for toilet hygiene. Sit to stand with mod assist of 2 from elevated bed. Pt leaning on the bed to maintain standing during initial attempt. After some time he was able to gain his balance and weight shift in standing. Pt became fatigued within 1 minute and sat for rest break with min assist. Pt performed additional standing x2 with min to mod assist of 2. He demonstrated with low standing tolerance and dyspnea with minimal activity. Pt was unable to stand from a low surface and was not yet safe to walk within his room due to weakness and unsteadiness in forefoot offloading shoe. Cognition: Behavior / Mood: alert and cooperative Alert and oriented to: person, place, and date Follows commands: 1 step, 2 step, and 100% of the time Attention: WFL Safety awareness: decreased insight into deficits Vision: corrective lenses multimedia engineer Endurance: decreased activity tolerance Vitals: Stable on RA. Strength/ROM: global deconditioning; difficulty using forefoot offloading shoe to maintain heel weight bearing Pain: Tolerable during activity. Education: Pt/family/caregiver education ongoing regarding: Role of Occupational Therapy, Range of motion , Activity tolerance, Positioning, Safety during ADL's and functional mobility , Alternating rest/activity , Increased participation in self-care and ADL's within hospital environment , Discharge planning , Transfers, Mobility, Balance strategies, Weightbearing precautions, Activity restrictions, Level of assist and/or supervision required, and Goals Staff Communication: Patient status, treatment, and mobility recommendations discussed with nursing/other staff. ASSESSMENT: Pt was seen for skilled OT treatment for continuation of plan of care. Pt showed progress from evaluation in regards to performing three trials of sit to stand transfers. However he was unable to stand from a low surface, showed low stand tolerance, and was not yet safe to walk within his room due to weakness and unsteadiness in forefoot offloading shoe. Pt continues to require dependent assist with LB dressing and toileting routines. Recommend sub acute level of care once medicallyready for discharge. Pt would benefit from further inpatient OT interventions to address performance deficits and maximize participation, independence quality of life, health and wellness, prevention, and safety with activities of daily living. Discharge Recommendation: long term facility, swing bed rehabilitation facility Equipment Recommendations: Equipment Needs Upon Discharge (OT): to be determined Daily schedule / Staff Recommendations: Utilize upright chair position using bed features or transfer to recliner chair as appropriate withmechanical lift Sit upright for all meals/meal times Encourage participation in ADL's by providing set up assist on tray table and physical assist only as needed Occupational Therapy Goals: To be achieved by 05/30/2024. Patient will demonstrate sponge bathe with moderate assistance. Patient will transfer from the bed to the chair with moderate assistance and LRD. Patient will perform lower body dressing with moderate assistance and AE as needed. Patient will demonstrate fair standing balance for functional transfers with moderate assistance and LRD. Patient will demonstrate standing grooming routine for ~5 minutes at the sink. Patient will verbalize precautions for the right foot and demonstrate adherence to them with all ADL routines and transfers. Therapy Frequency (OT): 2-3 times/wk Total Minutes, Occupational Therapy: 47 Pager: [phone] Rebeca Moeller OT Occupational Therapy Rehabilitation Department * Mihaela Galvan MD - 05/19/2024 6:43 AM EDT [facility] Medicine - Red Team Inpatient Progress Note ID: Jossy Shanks is a 69 y.o. year old male with past medical history of PMH of HTN, HFpEF, CKD (bsl Cr ~1.5), IDDM, COPD (not on home O2), rate controlled Afib (Xarelto, dilt, coreg) admitted on 05/10/2024 ( Hospital Day 9 days ) for LE cellulitis 2/2 R foot trauma. Active Hospital Problems Diagnosis Septic shock Resolved Hospital Problems No resolved problems to display. Interval History: --Tissue speciate station with 1 colony of coagulase-negative Staphylococcus species -Continued on ceftriaxone -has improvement from loose stools, w no BM ovn -Has been using DuoNebs every 4 hours, feels breathing imrpoved - Enjoyed working with PT on Sunday - No acute concerns. Meds: lactobacillius capsule 1 capsule Oral Daily ipratropium-albuteroL 3 mL Nebulization Q4H insulin lispro 1-6 Units Subcutaneous Q4H VLAD insulin glargine (Lantus;Semglee) (100 unit/mL) subcutaneous injection 12 Units Subcutaneous Nightly rivaroxaban 15 mg Oral Daily cefTRIAXone 2 g Intravenous Q24H insulin lispro 0-8 Units Subcutaneous TID WC carvediloL 25 mg Oral BID dilTIAZem 60 mg Oral Q6H VLAD PRN medications simethicone, ondansetron, oxyCODONE, melatonin, glucose 40% oral geL OR dextrose OR glucagon, acetaminophen Current Facility-Administered Medications Medication Dose Route Frequency simethicone (Gas-X Chew) 80 mg chewable tablet 80 mg 80 mg Oral Q6H PRN ondansetron (pf) (Zofran) (2 mg/mL) injection 4 mg 4 mg Intravenous Q8H PRN oxyCODONE (Roxicodone) tablet 5 mg 5 mg Oral Q4H PRN melatonin tablet 6 mg 6 mg Oral Nightly PRN glucose (Glutose) 40% oral geL 15-30 g of glucose Buccal Q15 Min PRN Or dextrose 10% infusion 250 mL Intravenous Q15 Min PRN Or glucagon (Glucagen) (1 mg/mL) injection solution 1 mg 1 mg Intramuscular Q15 Min PRN acetaminophen (Tylenol) tablet 975 mg 975 mg Oral Q8H PRN Physical Exam: Last value Range last 24 hrs Temperature Temp: 36.6 ??C (97.9 ??F) Temp: [36.3 ??C (97.3 ??F)-37.1 ??C (98.8 ??F)] Heart Rate Heart Rate: 79 Heart Rate: -- Blood Pressure BP: 124/67 BP: (124-165)/(67-108) Respiratory Rate Resp: 16 Resp: [16-18] SpO2 SpO2: 94 % SpO2: [94 %-97 %] Intake/Output Summary (Last 24 hours) at 05/19/2024 0643 Last data filed at 05/19/2024 0600 Gross per 24 hour Intake -- Output 3100 ml Net -3100 ml Patient Vitals for the past 168 hrs: Weight 05/14/24 0950 (!) 157.5 kg (347 lb 3.6 oz) Admit wt: 159.8 kg Gen: Lying in bed, NAD Eyes: PERRLA, EOMI, anicteric ENT: moist mucous membranes, CV: Regular rate, irregular rhythm Respiratory: Nowheezing, without rales or rhonchi, good inspiratory effort Skin: dry cracking skin b/l lower extremities with hyperpigmentation and flake, right worse than left. Decreased redness bilaterally, now more of a pink hue Neuro: CN II-XII grossly intact, without focal deficits Ext: b/l le edema. Bandage over right distal foot Labs: Recent Labs 05/19/24 0511 05/18/24 0401 05/17/24 0549 WBC 12.77* 9.84* 8.61 HGB 9.3* 9.6* 10.5* HCT 28.9* 31.4* 33.9* PLATELET 379* 335 341 Recent Labs 05/18/24 1704 05/18/24 0400 05/17/24 0549 NA 139 134* 134* K 5.4* 5.6* 5.0 CL 110* 107 103 CO2 17* 11* 21* BUN 116* 105* 86* CREATININE 2.64* 2.69* 3.07* GLUCOSE 170 144 131 Recent Labs 05/19/24 0511 05/18/24 1704 05/18/24 0400 05/17/24 0549 CALCIUM -- 9.2 8.8 8.7 MAGNESIUM 1.08* -- 1.09* 1.14* PHOS 5.1* -- 4.7* 5.6* No results for input(s): AST, ALT, ALKPHOS, BILITOT, BILIDIR in the last 168 hours. Imaging: MRI foot 05/10/2024 1. Soft tissue irregularity of the tip of the 2nd toe is presumed to correspond to focal soft tissue injury or an open wound. Recommend correlation with physical examination. No rim-enhancing soft tissue abscess. 2. Tiny 3 mm focus of osteitis of the distal tuft of the 2nd toe. 3. No MR evidence of tenosynovitis. 4. 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 05/12 Right duplex DVT leg: Interpretation RIGHT: No evidence of lower extremity deep venous thrombosis. Posterior tibial and peroneal veins are patent but were not adequately visualized to exclude non-occlusive thrombus 05/12 ANGY B/L Legs: Interpretation: RIGHT: No significant lower extremity arterial occlusive disease identified at rest. Normal ankle/brachial pressure ratios and ankle Doppler waveforms. Unable to obtain a toe pressure due to bandaging. LEFT: No significant lower extremity arterial occlusive disease identified at rest. Normal ankle/brachial pressure ratios and ankle Doppler waveforms. Microbiology: 05/10 blood culture, no growth at 5 days 05/10 skin/superficial wound culture: GNR and GPC 05/14: Tissue culture proximal toe: 1 colony of coagulase-negative Staphylococcus species 05/15: MRSA PCR negative Assessment and Plan: Jossy Shanks is a 69 y.o. year old male with past medical history of HTN, HFpEF, CKD (bsl Cr ~1.5), IDDM, COPD (not on home O2), rate controlled Afib (Xarelto, dilt, coreg) admitted on 05/10/2024 ( Hospital Day 9 days ) for LE cellulitis 2/2 right foot trauma . Jossy continues to feel fine and remains hemodynamically stable. Continues on ceftriaxone per ID with planned continuation upon discharge with OPAT now that speciation has resulted. His creatinine continues to rise though it is not evidently clear what is driving his FISH on CKD. He will need his renal function to improve and will need a central line placed prior to discharging with outpatient IV antibiotics. Given his renal insufficiency, considering OPAT with central access vs PICC, to spar efuture possible dialysis sites. #Right lower extremity cellulitis #R 2nd Toe Osteomyelitis s/p amputation #History of trauma to right foot #Chronic venous stasis, b/l #History of recurrent cellulitis #Septic shock at outside hospital, resolved MRI completed S/p R 2nd toe amputation Reviewed finalized RLE duplex and ANGY final read Blood culture no growth at 5 days ID following, appreciate recs: dc'd Pip-tazo and vanc c/w CTX Pending placement of line, picc vs other Has offloading shoe, c/w pt Pending pt/ot eval to determine dispo needs #IDDM Home regiment: 1.2mg liraglutide qd, 20u glargine nightly, 8u lispro tid. Continue on glargine 10 units meal associated insulin, CHO 60/60/75 and sensitive SSI. Hyperglycemic 8/ am after resumption insulin regimen, shifting back to nighty glargine Improved sugars from yesterday, will continue regimen as is #FISH on CKD #Hyponatremia #Hyperkalemia #Hyperphosphatemia Previous FEUrea consistent with prerenal FISH C/w BMP daily and daily weights Monitor I's and O's Avoid nephrotoxic agents C/w low phos diet Consult Nephro given increase in BUN not clearly linked to NPO status, vanc levels, or hydration #History of COPD Not on any home inhalers Continue on DuoNebs q4 hours # Diarrhea, improving - May be secondary to antibiotic use, considering adverse effect - Per C. difficile testing tool, screened, negative - Will continue with PPI at this time - c/w probiotic #?KATIA - several de-sat ovn with noted snoring - referral to sleep medicine on dc #HFpEF #A-fib on Xarelto Holding home lasix iso prerenal FISH Resumed home dose carvedilol 25 BID 05/13, tolerating well Home statin diltiazem IR 60 mg QID resumed Xarelto # Diet: Low Phos and Carb Control diet 60/60/75 CHO counting level 2 # DVT prophylaxis:Heparin, holding for pre-op # Fluids: NA # Access: 2IV in place # Dispo: pending clinical improvement # Code: Full Code Mihaela Galvan MD 05/19/2024 PGY-3, Internal Medicine [facility] Medicine Red Team - Pager [phone] Associated attestation - Saba Spears MD - 05/19/2024 6:22 PM EDT Attending Attestation and Certification Please see Mihaela Galvan MD's note for details of the patient history of presentation and data.I have discussed, reviewed and agree with the documented History, Physical findings, Assessment andPlan of care. Mr. Joe is a 69 y/o with CKD (as low as 1.5 this admission), DM, COPD, AF on xarelto, admitted with RLE cellulitis and OM s/p 2nd toe amputation with CoNS on tissue culture (plan for 4 weeks CTX 2gm daily until 06/04 with ID follow-up; if poor wound healing or CRP remaining elevated could extend to 6 weeks). Also with FISH with Cr stabilized and good UOP - but BUN [place] over past 2 days. Appreciate nephrology. No uremic symptoms. Hgb stable without evidence of GIB. Possible component of ATN after initial sepsis on CKD, also was on Vanc/zosyn - UOP 3L yesterday. Will need IR line given CKD and avoiding PICC. PT/OT recommending swing/SNF. I have examined the patient myself and personally reviewed all studies. In addition, I certify thatI am a [facility] credentialed attending provider with admitting privileges and that the patient meets or has met medical necessity to require an inpatient IPI level of care meeting a minimum of two midnights or is on the CMS inpatient only procedure list (status C) due to: OM requiring IV abx * Julissa Weathers - 05/18/2024 1:34 PM EDT Nutrition Services Note - Low Nutrition Acuity Jossy Shanks is a 69 y.o. male Reason for intervention: hospital day 9 Nutrition Plan: Continue current diet order Encourage good PO intake Insulin noted Lasix noted Monitor weight Patient scheduled for a hospital day 9 nutrition evaluation. Scaffolder met with pt at bedside. Pt saidhe hasn't had much of an appetite as he is having a hard time breathing and using a nebulizer, however he is trying to eat most of his meals. Pt denied any nausea or vomiting or trouble chewing or swallowing. Per documentation patient has excellent PO intakes recorded at 100% over the past 4 days. Accordingto dining services software they have ordered an average ~1,569 kcals/day and ~102 g protein/day within the same duration. Unable to assess weight loss at this time as last recorded weight on file isform 05/14. Updated weight requested from RN. Please continue to update weights to allow for ongoingassessment of weight changes. Clinical Nutrition to monitor and follow. Active Orders Diet Carb Control diet 60/60/75 CHO counting level 2 Low Phosphorus Frequency: Effective Now Number of Occurrences: Until Specified Admit Weight: 159.8 kg Estimated body mass index is 43.4 kg/m?? as calculated from the following: Height as of this encounter: 190.5 cm (6' 3). Weight as of this encounter: 157.5 kg (347 lb 3.6 oz). Wt Readings from Last 5 Encounters: 05/14/24 (!) 157.5 kg (347 lb 3.6 oz) 11/26/17 131.1 kg (289 lb) Weight loss: Unable to assess d/t no updated weight recorded Appetite: Excellent (75%-100%) Food allergies:no known food allergies Chewing/Swallowing difficulty: none Nausea/Vomiting: no nausea and no vomiting Last Bowel Movement: 05/17/24 Patient education / questions: all nutrition related questions answered at this time Nutrition services to follow weekly through hospital course unless consulted in the interim. Julissa Weathers Pet Stylist * Mihaela Galvan MD - 05/18/2024 7:20 AM EDT [facility] Medicine - Red Team Inpatient Progress Note ID: Jossy Shanks is a 69 y.o. year old male with past medical history of PMH of HTN, HFpEF, CKD (bsl Cr ~1.5), IDDM, COPD (not on home O2), rate controlled Afib (Xarelto, dilt, coreg) admitted on 05/10/2024 ( Hospital Day 8 days ) for LE cellulitis 2/2 R foot trauma. Active Hospital Problems Diagnosis Septic shock Resolved Hospital Problems No resolved problems to display. Interval History: --Tissue speciate station with 1 colony of coagulase-negative Staphylococcus species -Continued on ceftriaxone -Has been having frequent loose stools, brown green-black, 3-5 yesterday, several already this morning -Has been using DuoNebs every 4 hours with improvement Subjective: -Breathing improved with DuoNebs - Enjoyed working with PT on Sunday - No acute concerns. Meds: insulin lispro 1-6 Units Subcutaneous Q4H VLAD insulin glargine (Lantus;Semglee) (100 unit/mL) subcutaneous injection 12 Units Subcutaneous Nightly rivaroxaban 15 mg Oral Daily cefTRIAXone 2 g Intravenous Q24H insulin lispro 0-8 Units Subcutaneous TID WC carvediloL 25 mg Oral BID dilTIAZem 60 mg Oral Q6H VLAD PRN medications simethicone, ondansetron, oxyCODONE, melatonin, glucose 40% oral geL OR dextrose OR glucagon, ipratropium-albuteroL, acetaminophen Current Facility-Administered Medications Medication Dose Route Frequency simethicone (Gas-X Chew) 80 mg chewable tablet 80 mg 80 mg Oral Q6H PRN ondansetron (pf) (Zofran) (2 mg/mL) injection 4 mg 4 mg Intravenous Q8H PRN oxyCODONE (Roxicodone) tablet 5 mg 5 mg Oral Q4H PRN melatonin tablet 6 mg 6 mg Oral Nightly PRN glucose (Glutose) 40% oral geL 15-30 g of glucose Buccal Q15 Min PRN Or dextrose 10% infusion 250 mL Intravenous Q15 Min PRN Or glucagon (Glucagen) (1 mg/mL) injection solution 1 mg 1 mg Intramuscular Q15 Min PRN ipratropium-albuteroL (Duoneb) 0.5 mg-3 mg(2.5 mg base)/3 mL nebulizer solution 3 mL 3 mL Nebulization Q4H PRN acetaminophen (Tylenol) tablet 975 mg 975 mg Oral Q8H PRN Physical Exam: Last value Range last 24 hrs Temperature Temp: 36.9 ??C (98.4 ??F) Temp: [36.7 ??C (98.1 ??F)-36.9 ??C (98.4 ??F)] Heart Rate Heart Rate: 79 Heart Rate: [79-107] Blood Pressure BP: 141/72 BP: (141-167)/(71-88) Respiratory Rate Resp: 18 Resp: [18] SpO2 SpO2: 95 % SpO2: [91 %-95 %] Intake/Output Summary (Last 24 hours) at 05/18/2024 0720 Last data filed at 05/18/2024 0410 Gross per 24 hour Intake 1130 ml Output 1450 ml Net -320 ml Patient Vitals for the past 168 hrs: Weight 05/14/24 0950 (!) 157.5 kg (347 lb 3.6 oz) Admit wt: 159.8 kg Gen: Lying in bed, NAD Eyes: PERRLA, EOMI, anicteric ENT: moist mucous membranes, CV: Regular rate, irregular rhythm Respiratory: Mild b/l wheezing, without rales or rhonchi, good inspiratory effort Skin: dry cracking skin b/l lower extremities with hyperpigmentation and flake, right worse than left. Decreased redness bilaterally, now more of a pink hue Neuro: CN II-XII grossly intact, without focal deficits Ext: b/l le edema. Bandage over right distal foot Labs: Recent Labs 05/18/24 0401 05/17/24 0549 05/16/24 0514 WBC 9.84* 8.61 11.6* HGB 9.6* 10.5* 10.5* HCT 31.4* 33.9* 33.8* PLATELET 335 341 317 Recent Labs 05/17/24 0549 05/16/24 0514 05/15/24 0512 NA 134* 133* 135 K 5.0 5.0 5.2* CL 103 101 100 CO2 21* 21* 23 BUN 86* 74* 58* CREATININE 3.07* 2.88* 2.46* GLUCOSE 131 154 217* Recent Labs 05/17/24 0549 05/16/24 0514 05/15/24 0512 CALCIUM 8.7 8.8 8.8 MAGNESIUM 1.14* 1.22* 1.21* PHOS 5.6* 6.3* 6.5* No results for input(s): AST, ALT, ALKPHOS, BILITOT, BILIDIR in the last 168 hours. Imaging: MRI foot 05/10/2024 1. Soft tissue irregularity of the tip of the 2nd toe is presumed to correspond to focal soft tissue injury or an open wound. Recommend correlation with physical examination. No rim-enhancing soft tissue abscess. 2. Tiny 3 mm focus of osteitis of the distal tuft of the 2nd toe. 3. No MR evidence of tenosynovitis. 4. 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 05/12 Right duplex DVT leg: Interpretation RIGHT: No evidence of lower extremity deep venous thrombosis. Posterior tibial and peroneal veins are patent but were not adequately visualized to exclude non-occlusive thrombus 05/12 ANGY B/L Legs: Interpretation: RIGHT: No significant lower extremity arterial occlusive disease identified at rest. Normal ankle/brachial pressure ratios and ankle Doppler waveforms. Unable to obtain a toe pressure due to bandaging. LEFT: No significant lower extremity arterial occlusive disease identified at rest. Normal ankle/brachial pressure ratios and ankle Doppler waveforms. Microbiology: 05/10 blood culture, no growth at 5 days 05/10 skin/superficial wound culture: GNR and GPC 05/14: Tissue culture proximal toe: 1 colony of coagulase-negative Staphylococcus species 05/15: MRSA PCR negative Assessment and Plan: Jossy Shanks is a 69 y.o. year old male with past medical history of HTN, HFpEF, CKD (bsl Cr ~1.5), IDDM, COPD (not on home O2), rate controlled Afib (Xarelto, dilt, coreg) admitted on 05/10/2024 ( Hospital Day 8 days ) for LE cellulitis 2/2 right foot trauma . Jossy continues to feel fine and remains hemodynamically stable. Continues on ceftriaxone per ID with planned continuation upon discharge with OPAT now that speciation has resulted. His creatinine continues to rise though it is not evidently clear what is driving his FISH on CKD. He will need his renal function to improve and will need a central line placed prior to discharging with outpatient IV antibiotics. Given his renal insufficiency, will likely need a tunneled chest central line. #Right lower extremity cellulitis #R 2nd Toe Osteomyelitis s/p amputation #History of trauma to right foot #Chronic venous stasis, b/l #History of recurrent cellulitis #Septic shock at outside hospital, resolved MRI completed S/p R 2nd toe amputation Reviewed finalized RLE duplex and ANGY final read Blood culture no growth at 5 days ID following, appreciate recs: dc'd Pip-tazo and vanc c/w CTX Pending placement of line, picc vs other Has offloading shoe, c/w pt Pending pt/ot eval to determine dispo needs #IDDM Home regiment: 1.2mg liraglutide qd, 20u glargine nightly, 8u lispro tid. Continue on glargine 10 units meal associated insulin, CHO 60/60/75 and sensitive SSI. Hyperglycemic 8/ am after resumption insulin regimen, shifting back to nighty glargine Improved sugars from yesterday, will continue regimen as is #FISH on CKD #Hyponatremia #Hyperkalemia #Hyperphosphatemia Previous FEUrea consistent with prerenal FISH C/w BMP daily and daily weights Monitor I's and O's Resend urine studies Avoid nephrotoxic agents #History of COPD Not on any home inhalers Wheezing noted post anesthesia, but at baseline now per primary team Continue on DuoNebs as needed # Diarrhea - May be secondary to antibiotic use, considering adverse effect versus C. Difficile - Per C. difficile testing tool, will screen - Will continue with PPI at this time, pending results of test -Initiated probiotic #?KATIA - several de-sat ovn with noted snoring - referral to sleep medicine on dc #HFpEF #A-fib on Xarelto Holding home lasix iso prerenal FISH Resumed home dose 25 BID 05/13, tolerating well Home statin diltiazem IR 60 mg QID resuming Xarelto # Diet: Low Phos and Carb Control diet 60/60/75 CHO counting level 2 # DVT prophylaxis:Heparin, holding for pre-op # Fluids: NA # Access: 2IV in place # Dispo: pending clinical improvement # Code: Full Code Mihaela Galvan MD 05/18/2024 PGY-3, Internal Medicine [facility] Medicine Red Team - Pager [phone] Associated attestation - Saba Spears MD - 05/18/2024 8:08 PM EDT Attending Attestation and Certification Please see Mihaela Galvan MD's note for details of the patient history of presentation and data.I have discussed, reviewed and agree with the documented History, Physical findings, Assessment andPlan of care. Mr. Joe is a 69 y/o with CKD (as low as 1.5 this admission), DM, COPD, AF on xarelto, admitted with RLE cellulitis and OM s/p 2nd toe amputation with CoNS on tissue culture (plan for 4 weeks CTX 2gm daily until 06/04 with ID follow-up; if poor wound healing or CRP remaining elevated could extend to 6 weeks). Also with FISH. Renal function improved after initial ICU with IVF/pressors (initial Francine <20) - but then worsened again - nonoliguric. Possible component of ATN after initial sepsis and is improvedtoday. UOP 1775 yesterday. Continue to monitor - balance if access for IV abx (given is for 2 more weeks - PICC (which has had in left arm before) vs central access which would require return to hospital to remove. PT/OT consults. I have examined the patient myself and personally reviewed all studies. In addition, I certify thatI am a D-H credentialed attending provider with admitting privileges and that the patient meets or has met medical necessity to require an inpatient IPI level of care meeting a minimum of two midnights or is on the [facility] inpatient only procedure list (status C) due to: OM requiring IV abx * Rodriguez Hein MD - 05/17/2024 4:27 PM EDT Infectious Diseases Update: The proximal right 2nd toe culture is growing methicillin-susceptible coagulase negative Staphylococcus. Given osteomyelitis s/p amputation, we can treat for 3 weeks for residual osteomyelitis. I considered PO linezolid to avoid the need for parenteral therapy, but this would require aggressive therapeutic drug monitoring given Mr. Shanks' fluctuating renal function. Instead, I have opted to stick with ceftriaxone 2gm IV Daily x3 weeks (05/14/24-06/04/24). Starting CRP 152.4mg/L. He is planned to get a Port, as renal is worried about a PICC given his potential future need for HD access. We will schedule ID follow-up the week of 06/02/24. We can extend the duration out to 6 weeks if there is poor wound healing or if the CRP is not coming down as expected. I met with Mr. Shanks and explained this plan. I answered his questions, and a OPAT order has beenadded to the Discharge Navigator. On exam today, there was no evidence of worsening cellulitis. He has chronic venous stasis changes,and there is some residual erythema in the setting of these skin changes. Rodriguez Hein MD * Juan José Harrison MD - 05/17/2024 6:28 AM EDT [facility] Medicine Red Team Inpatient Progress Note ID: Jossy Shanks is a 69 y.o. year old male with past medical history of PMH of HTN, HFpEF, CKD (bsl Cr ~1.5), IDDM, COPD (not on home O2), rate controlled Afib (Xarelto, dilt, coreg) admitted on 05/10/2024 ( Hospital Day 7 days ) for LE cellulitis 2/2 R foot trauma. Active Hospital Problems Diagnosis Septic shock Resolved Hospital Problems No resolved problems to display. Interval History: -Vancomycin discontinued per ID -Continued on ceftriaxone -Speciation-pending for tissue culture Subjective: -No acute events overnight -Patient endorses feeling fine this morning. States that he worked with rehabilitation services yesterday. No acute concerns. Meds: insulin lispro 1-6 Units Subcutaneous Q4H [facility] insulin glargine (Lantus;Semglee) (100 unit/mL) subcutaneous injection 12 Units Subcutaneous Nightly rivaroxaban 15 mg Oral Daily cefTRIAXone 2 g Intravenous Q24H insulin lispro 0-8 Units Subcutaneous TID WC carvediloL 25 mg Oral BID dilTIAZem 60 mg Oral Q6H VLAD PRN medications simethicone, ondansetron, oxyCODONE, melatonin, glucose 40% oral geL OR dextrose OR glucagon, ipratropium-albuteroL, acetaminophen Current Facility-Administered Medications Medication Dose Route Frequency simethicone (Gas-X Chew) 80 mg chewable tablet 80 mg 80 mg Oral Q6H PRN ondansetron (pf) (Zofran) (2 mg/mL) injection 4 mg 4 mg Intravenous Q8H PRN oxyCODONE (Roxicodone) tablet 5 mg 5 mg Oral Q4H PRN melatonin tablet 6 mg 6 mg Oral Nightly PRN glucose (Glutose) 40% oral geL 15-30 g of glucose Buccal Q15 Min PRN Or dextrose 10% infusion 250 mL Intravenous Q15 Min PRN Or glucagon (Glucagen) (1 mg/mL) injection solution 1 mg 1 mg Intramuscular Q15 Min PRN ipratropium-albuteroL (Duoneb) 0.5 mg-3 mg(2.5 mg base)/3 mL nebulizer solution 3 mL 3 mL Nebulization Q4H PRN acetaminophen (Tylenol) tablet 975 mg 975 mg Oral Q8H PRN Physical Exam: Last value Range last 24 hrs Temperature Temp: 36.7 ??C (98.1 ??F) Temp: [36.5 ??C (97.7 ??F)-37 ??C (98.6 ??F)] Heart Rate Heart Rate: 98 Heart Rate: [91-100] Blood Pressure BP: 148/85 BP: (129-150)/(71-85) Respiratory Rate Resp: 18 Resp: [18-19] SpO2 SpO2: 94 % SpO2: [91 %-95 %] Intake/Output Summary (Last 24 hours) at 05/17/2024 1446 Last data filed at 05/17/2024 1300 Gross per 24 hour Intake 1130 ml Output 2425 ml Net -1295 ml Patient Vitals for the past 168 hrs: Weight 05/14/24 0950 (!) 157.5 kg (347 lb 3.6 oz) 05/11/24 0400 (!) 157.5 kg (347 lb 3.6 oz) Admit wt: 159.8 kg Gen: Lying in bed, NAD Eyes: PERRLA, EOMI, anicteric ENT: moist mucous membranes, CV: Regular rate, irregular rhythm Respiratory: b/l wheezing, without rales or rhonchi, good inspiratory effort Skin: dry cracking skin b/l lower extremities with hyperpigmentation and flake, right worse than left. Right with warmth, increased tenderness, and small increase in swelling when compared to left. Neuro: CN II-XII grossly intact, without focal deficits Ext: b/l le edema. Bandage over right distal foot Labs: Recent Labs 05/17/24 0549 05/16/24 0514 05/15/24 0512 WBC 8.61 11.6* 13.4* HGB 10.5* 10.5* 10.9* HCT 33.9* 33.8* 34.1* PLATELET 341 317 227 Recent Labs 05/17/24 0549 05/16/24 0514 05/15/24 0512 NA 134* 133* 135 K 5.0 5.0 5.2* CL 103 101 100 CO2 21* 21* 23 BUN 86* 74* 58* CREATININE 3.07* 2.88* 2.46* GLUCOSE 131 154 217* Recent Labs 05/17/24 0549 05/16/24 0514 05/15/24 0512 CALCIUM 8.7 8.8 8.8 MAGNESIUM 1.14* 1.22* 1.21* PHOS 5.6* 6.3* 6.5* No results for input(s): AST, ALT, ALKPHOS, BILITOT, BILIDIR in the last 168 hours. Imaging: MRI foot 05/10/2024 1. Soft tissue irregularity of the tip of the 2nd toe is presumed to correspond to focal soft tissue injury or an open wound. Recommend correlation with physical examination. No rim-enhancing soft tissue abscess. 2. Tiny 3 mm focus of osteitis of the distal tuft of the 2nd toe. 3. No MR evidence of tenosynovitis. 4. 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 05/12 Right duplex DVT leg: Interpretation RIGHT: No evidence of lower extremity deep venous thrombosis. Posterior tibial and peroneal veins are patent but were not adequately visualized to exclude non-occlusive thrombus 05/12 ANGY B/L Legs: Interpretation: RIGHT: No significant lower extremity arterial occlusive disease identified at rest. Normal ankle/brachial pressure ratios and ankle Doppler waveforms. Unable to obtain a toe pressure due to bandaging. LEFT: No significant lower extremity arterial occlusive disease identified at rest. Normal ankle/brachial pressure ratios and ankle Doppler waveforms. Microbiology: 05/15 MRSA PCR: Negative 05/14 Anaerobic & Aerobic Tissue Culture Toe: GPC in pairs Assessment and Plan: Jossy Shanks is a 69 y.o. year old male with past medical history of HTN, HFpEF, CKD (bsl Cr ~1.5), IDDM, COPD (not on home O2), rate controlled Afib (Xarelto, dilt, coreg) admitted on 05/10/2024 ( Hospital Day 7 days ) for LE cellulitis 2/2 right foot trauma . Jossy continues to feel fine and remains hemodynamically stable. Continues on ceftriaxone per ID with planned continuation upon discharge with OPAT now that speciation has resulted. His creatinine continues to rise though it is not evidently clear what is driving his FISH on CKD. He will need his renal function to improve and will need a central line placed prior to discharging with outpatient IV antibiotics. Given his renal insufficiency, will likely need a tunneled chest central line. #Right lower extremity cellulitis #R 2nd Toe Osteomyelitis s/p amputation #History of trauma to right foot #Chronic venous stasis, b/l #History of recurrent cellulitis #Septic shock at outside hospital, resolved MRI completed S/p R 2nd toe amputation Reviewed finalized RLE duplex and ANGY final read ID following, appreciate recs D/c Pip-tazo and vanc Continue CTX Follow-up blood cultures Pending placement of line, picc vs tunneled cath Has offloading shoe Pending pt/ot eval to determine dispo needs #IDDM Home regiment: 1.2mg liraglutide qd, 20u glargine nightly, 8u lispro tid. Continue on glargine 10 units meal associated insulin, CHO 60/60/75 and sensitive SSI. Hyperglycemic 8/1 am after resumption insulin regimen, shifting back to nighty glargine Improved sugars from yesterday, will continue regimen as is #FISH on CKD #Hyponatremia #Hyperkalemia #Hyperphosphatemia Previous FEUrea consistent with prerenal FISH C/w BMP daily and daily weights Monitor I's and O's Resend urine studies Avoid nephrotoxic agents #History of COPD Not on any home inhalers Wheezing noted post anesthesia, but at baseline now per primary team Continue on DuoNebs as needed #?KATIA - several de-sat ovn with noted snoring - referral to sleep medicine on dc #HFpEF #A-fib on Xarelto Holding home lasix iso prerenal FISH Resumed home dose 25 BID 05/13, tolerating well Home statin diltiazem IR 60 mg QID resuming Xarelto # Diet: Low Phos and Carb Control diet 60/60/75 CHO counting level 2 # DVT prophylaxis:Heparin, holding for pre-op # Fluids: NA # Access: 2IV in place # Dispo: pending clinical improvement # Code: Full Code Juan José Harrison MD 05/17/2024 PGY-3, Internal Medicine [facility] Medicine Red Team - Pager [phone] Associated attestation - Saba Spears MD - 05/17/2024 10:08 PM EDT Attending Attestation and Certification Please see Juan José Harrison MD's note for details of the patient history of presentation and data. I have discussed, reviewed and agree with the documented History, Physical findings, Assessment and Plan of care. Mr. Joe is a 69 y/o with CKD (baseline around 1.5), DM, COPD, AF on xarelto, admitted with RLE cellulitis and OM s/p 2nd toe amputation with CoNS on tissue culture (plan for 4 weeks CTX 2gm daily until 06/04 with ID follow-up; if poor wound healing or CRP remaining elevated could extend to 6 weeks). Also with FISH. Renal function improved after initial ICU with IVF/pressors (initial Francine <20) - but then worsened again - nonoliguric. Possible component of ATN after initial sepsis. UOP 1775 yesterday. Continue to monitor - engage nephrology if renal function worsens/does not improve (also if PICC is an option with his CKD or if will need central access with IR for IV abx). Engage PT/OT. I have examined the patient myself and personally reviewed all studies. In addition, I certify thatI am a D-H credentialed attending provider with admitting privileges and that the patient meets or has met medical necessity to require an inpatient IPI level of care meeting a minimum of two midnights or is on the CMS inpatient only procedure list (status C) due to: OM requiring IV abx * Alma Ho, PT - 05/16/2024 2:29 PM EDT Physical Therapy Evaluation Patient profile: Jossy Shanks is a 69 y.o. male admitted on 05/10/[address] Treva Diaz MD. Per MD note, Jossy Shanks is a 69 y.o. year old male with past medical history of HTN, HFpEF,CKD (bsl Cr ~1.5), IDDM, COPD (not on home O2), rate controlled Afib (Xarelto, dilt, coreg) admitted on 05/10/2024 ( Hospital Day 6 days ) for LE cellulitis 2/2 right foot trauma . Overall doing well, orthopedics was consulted in the MICU with concern for bone involvement. MRI w soft tissue irregularity of 2nd toe with osteitis in the distal tuft of 2nd toe. Amputation of 2nd transmetatarsal on 05/14 Patient with the following active problems: No past medical history on file. Past Surgical History: Procedure Laterality Date PRO AMPUTATION METATARSAL+TOE, SINGLE Right 05/14/2024 AMPUTATION, TRANSMETATARSAL TOE, ONE TOE (WRVU 6.64) performed by Elkin Garcia MD at [facility] OR Active Non-Hospital Problems Diagnosis Degenerative lumbar spinal stenosis Social History: (per patient report) Home set-up: Lives alone in a one level apartment. Bathroom Set-up: walk in shower Stairs: 4 stairs with unilateral railing to enter home, several thresholds throughout the apartmentonce inside. Reports he was in the process of moving when he got injured. Some of his furniture is still in storage but reports his family can help move it for him before he gets home. Reports he wascamping out before Baseline Mobility: Modified independent using walking sticks outside of his home most of the time. Reports he doesn't use walking sticks inside his home. Equipment at home: walking sticks Fall history: denies any Precautions/Special Considerations: fall risk, high risk for skin breakdown, heel weight bearing inforefoot offloading shoe RLE, incision R 2nd toe, AAT, hx of a-fib per MD notes, hx of COPD per MD notes Activity Orders (From admission to next 72h) Start Ordered 05/14/24 1235 Weight bearing status UNTIL DISCONTINUED Process Instructions: If individualized per extremity weight restrictions are being indicated, please complete a NEW order for EACH extremity. Question Answer Comment Weight bearing of: Custom Custom: WBAT in forefoot offloader shoe Extremity / Laterality: LOWER RIGHT extremity 05/14/24 1232 Unscheduled Activity as tolerated PRN 05/10/24 0217 Mobility and Positioning Recommendations: Pt.to utilize mechanical lift for transfers out of bed with nursing staff. Please encourage up to chair for meal times as able. Subjective: ???I feel very weak right now?? Objective: Pt agreeable to physical therapy evaluation today, met resting in bed. Pt required extra-large forefoot offloading shoe for RLE which was not present on unit. PT obtained extra large forefoot offloading shoe from ortho clinic per MD request today. Patient seen for PT evaluation and demonstrated the following: Pain: tolerable levels reported throughout Vital Signs: HR: 88 bpm SpO2: 93% room air, pt observed to have increased respiratory rate and reported dyspnea with sitting EOB, observed to be wheezing, RN made aware, SpO2 >92% RA throughout BP: 153/89 mmHg (supine) > 168/98 mmHg (seated edge of bed, endorsing lightheadedness after standing), reported lightheadedness resolved once supine Mental Status: alert, oriented to person, place, and time Musculoskeletal: ROM: WFL BLE Strength: decreased generalized strength observed with functional tasks, required significant assistance for sit<>stand transfer today Integumentary: gauze and derek wrapping noted to R foot, edema noted BLE, purple/reddish discoloration noted of B lower legs Bed Mobility: Supine to Sit: minimal assist x2, head of bed elevated, using bed rail, cues for technique, required dependent assist for donning forefoot offloading shoe on RLE Sit to Supine: moderate assist x2, head of bed elevated, using bed rail, maximal assist for repositioning in bed Transfers: Sit to Stand: required 2 attempts to stand, able to stand on 2nd attempt with maximal assist x2, FWW, cues for technique, stood for ~30 seconds with maximal assist x2 with FWW, adhering to heel weight bearing RLE in forefoot offloading shoe, unable to take any steps or ambulate today Stand to Sit: maximal assist x2, FWW, cues for technique, adhering to heel weight bearing in forefoot offloading shoe RLE Bed to Chair: unable Gait: Distance: unable Device used: NA Level of assist: NA Gait mechanics: NA Stairs: DNT Balance: Sitting Static: fair, CGA Sitting Dynamic: fair, CGA Standing Static: poor, maxA x2 with FWW Standing Dynamic / Gait: unable Education: patient has been educated on Bed mobility, Transfers, Assistive device/technique, Positioning, Safety , Precautions/protocol, Equipment use, Activity pacing/Energy conservation, Role of therapy, and Discharge planning and verbalize and demonstrate understanding. Patient status, treatment, and mobility recommendations discussed with nursing. Provided patient education on heel weight bearing in forefoot offloading shoe RLE. Pt verbalized and demonstrated understanding. Pt resting in bed at end of physical therapy evaluation, call jasmine within reach, and all needs met. Assessment: Jossy Shanks was seen today for physical therapy evaluation s/p amputation of R 2nd transmetatarsal on 05/14. Pt presents with impairments including decreased strength, pain, edema, decreased activity tolerance, reliance on AD, new precautions, impaired balance, gait deviations, impaired skin integrity, contributing to activity limitations, decreased participation in ADLs, and decreased ability to care for one's self. Provided patient education on heel weight bearing in forefoot offloading shoe RLE in order to optimize heeling/recovery. Pt verbalized and demonstrated understanding. Pt required assistance for all functional mobility during today's evaluation. Pt required minimalassist x2 for supine>sit transfer and maximal assist x2 for sit<>stand transfer with FWW from heightened bed. Pt required 2 attempts to stand up and pt only able to stand for ~ 30 seconds with FWW with maximal assist. Pt unable to take any steps at this time. Pt reported lightheadedness after standing and needed to lie back down, requiring moderate assist x2 for sit>supine transfer. Pt adhering to heel weight bearing in forefoot offloading shoe RLE throughout evaluation today. Pt limited during evaluation due to decreased activity tolerance, generalized weakness, pain and reports of lightheadedness. Pt currently functioning below their baseline level of functional mobility and does not appear to be functioning at a safe level to discharge home at this time. Recommend patient discharge to swing bed rehab facility once medically ready for hospital discharge. Pt will continue to benefit from skilled physical therapy while in the hospital in order to maximize independence and safety with functional mobility and achieve therapeutic goals. Discharge Recommendations: Based on current findings- swing bed rehabilitation facility Discharge recommendation is based on the patient's current physical impairments, prior functional status, potential to return to prior level of function, patient motivation, reported home support, potential for functional gains, current level of endurance, reported home environment and anticipated trajectory of progress and may change based on patient progress during this hospitalization. Inpatient Physical Therapy Plan: Therapy Frequency (PT): 2-4 times/wk for therapy including balancetraining, bed mobility training, gait training, home exercise program, manual therapy techniques, neuromuscular re-education, patient/family education, postural re-education, range of motion, stair tr aining, strengthening, transfer training, and wheelchair managment/propulsion training. Patient/family understand and agree with plan as stated above. Consult Recommendations: No other consults recommended at this time. Equipment needs: Anticipated Equipment Needs at Discharge (PT): to be determined Goals: To be achieved by 06/16/24: Pt. to demonstrate knowledge of safety limitations and precautions and will appropriately request assistance for functional activities and to mobilize. Pt. to perform bed mobility with modified independence. Pt. to perform transfers with modified independence using FWW while adhering to heel weight bearingin forefoot offloading shoe RLE. Pt. to ambulate 150 feet with modified independence using a a front wheeled walker while adhering to heel weight bearing in forefoot offloading shoe RLE. Pt. to ambulate up/down 4 step/stairs using one rail with LRAD with modified independence. Pt will tolerate progression towards upright with stable vital signs. PT Evaluation Code Rationale: Diagnosis & Pertinent Co-Morbidities, personal factors, and present illness affecting Plan of Care: (see above); Additional personal factors or co- morbidities that impact plan: Total # of Factors: 0 1-2 3+ x Examination of body system impairments, functional limitations and behaviors, and/or participation restrictions. Addressing 1-2 elements Addressing 3 + elements x Addressing 4 + elements Clinical presentation: See assessment above. Stable/Uncomplicated Evolving/Fluctuating Symptoms Unstable/Unpredictable x Clinical decision making of moderate complexity based on pt's functional performance as outlined inthis evaluation. Time IN / OUT: 14:29-15:57 Total Time: 87 minutes; huber angeles PT, Doctor of Physical Therapy Pager: [phone] Physical Therapy Inpatient Rehabilitation Department * Emmanuel Corey, DO - 05/16/2024 10:26 AM EDT Images from the original note were not included. INFECTIOUS DISEASE PROGRESS NOTE Reason for Consult: Residual Osteomyelitis Consulting Service: Hospital Medicine Consulting Attending: Treva Diaz MD Admission Date: 05/10/2024 Interval Events Pt is a 69 y.o. male with a history of HTN, HFpEF, CKD (Cr. 1.5), IDDM, COPD, Afib admitted for osteomyelitis. NAEO. Afebrile. No leg pain. Does have an itchy and tender spot on dorsal aspect of left foot with compression dan where his socks were. Review of Systems: Pertinent positives and negatives noted in HPI. 14 point ROS otherwise negative except noted in HPI. Allergies/Adverse drug reactions: No Known Allergies Family History: Family History No data available Social History: Housing: lives in a camper in [facility] Occupation: Former [employer], retired in 2017 Pets: None Smoking: About 50 pack years EtOH: Quit drinking 2014 Drug use: Occasional MJ use Physical Exam: Last value Range last 24 hrs Temperature Temp: 36.5 ??C (97.7 ??F) Temp: [36.4 ??C (97.5 ??F)-36.9 ??C (98.4 ??F)] Heart Rate Heart Rate: 99 Heart Rate: [86-105] Blood Pressure BP: 133/65 BP: (132-160)/(65-87) Respiratory Rate Resp: 18 Resp: [16-18] SpO2 SpO2: 93 % SpO2: [86 %-97 %] General: no acute distress Head: normocephalic, atraumatic EENT: No conjunctival petechiae Cardiovascular: RRR, no murmur, rubs, or gallops Pulmonary: No increased WOB Abdomen: Soft, non-tender, non-distended Ext: No deformity Skin: Bilateral chronic venous stasis changes, more erythematous discoloration of RLE up to mid legas compared to L leg. Neuro: A&O, moves all 4 extremities spontaneously Psych: Euthymic, pleasant I have reviewed the pertinent laboratory, microbiology, and diagnostic/radiology/procedure results: Recent Labs 05/16/24 0514 05/15/24 0512 05/14/24 0501 WBC 11.6* 13.4* 15.5* HGB 10.5* 10.9* 10.8* HCT 33.8* 34.1* 32.8* PLATELET 317 227 190 Recent Labs 05/16/24 0514 05/15/24 0512 05/14/24 0501 NA 133* 135 137 K 5.0 5.2* 4.4 CL 101 100 105 CO2 21* 23 22 BUN 74* 58* 46* CREATININE 2.88* 2.46* 1.56* CRP (mg/L) Date Value 05/12/2024 152.4 (H) Sed Rate (mm/hr) Date Value 05/12/2024 >119 (H) Microbiology: Microbiology Results (last 7 days) Procedure Component Value - Date/Time MRSA PCR Screen ([facility] [place] [[id number]] Collected: 05/15/24 1615 Lab Status: Final result Specimen: Nasopharyngeal Swab Updated: 05/15/242012 MRSA Result Negative MRSA Interp -- Methicillin-resistant Staphylococcus aureus (MRSA) is NOT DETECTED The MRSA target DNA sequences (mec and SCC) were not detected within the acceptable ranges using the Xpert MRSA NxG on the GeneXpert Dx System ([employer]). This suggests the absence of MRSA in the patient specimen submitted for testing. This test is cleared by the U.S. Food and Drug Administration for clinical use and its performance characteristics have been verified by the [facility] at [facility]. This result does not rule out the presence of any other organisms. Rare false negative results may occur if MRSA is present at low concentrations with much higher concentrations of other organisms including MRSE or S. aureus with an empty SCC cassette. Comment: [VERIFIED DATE]05.15.24 Verified By:Lupe Jensen (Electronic Signature) Tissue Culture, Aerobic & Anaerobic Toe [[id number]] (Abnormal) Collected: 05/14/24 1133 Lab Status: Preliminary result Specimen: Toe Updated: 05/15/24 1212 Tissue culture [[id number]] (Abnormal) Collected: 05/14/24 1133 Lab Status: Preliminary result Specimen: Toe Updated: 05/15/24 1212 Tissue Culture No growth to date. Gram Stain -- Few Neutrophils seen Rare Gram Positive Cocci in pairs seen Results called to and read back by Dr. Mihaela Galvan 05/14/24 14:57:00 Organism Gram Positive Cocci in pairs Anaerobic Culture [[id number]] Collected: 05/14/24 1133 Lab Status: Preliminary result Specimen: Toe Updated: 05/15/24 1124 Anaerobic Culture No anaerobic organisms isolated to date Blood culture [[id number]] Collected: 05/10/24 0232 Lab Status: Final result Specimen: Blood from Hand, Right Updated: 05/15/24 0701 Blood Culture No growth at 5 days. Skin/Superficial Wound Culture Toe [[id number]] (Abnormal) Collected: 05/10/24 0256 Lab Status: Final result Specimen: Superficial Wound from Toe Updated: 05/12/24 1520 Skin/Superficial Wound Culture -- Rare mixed bacterial morphotypes suggestive of normal cutaneous armani including Rare Gram Negative Rods Gram Stain -- Many Neutrophils seen Few Gram Positive Cocci seen Organism Gram Negative Rods Gram Positive Cocci Antimicrobials: Vancomycin 05/10- present Zosyn 05/10-05/14 CTX 2g/Q24 05/14- Present Imaging/diagnostics: Impression: Pt is a 69 y.o. male with a history of HTN, HFpEF, CKD (Cr. 1.5), IDDM, COPD, Afib admitted for osteomyelitis. Toe culture from the OR is growing GPC in pairs, which could be strep. His kidney functioning is worse. In light of this, would opt to stop the vancomycin and continue CTX, pending final speciation. If the species turns out to be staph, would consider Mec A testing. RECOMMENDATIONS: Stop Vancomycin Continue CTX Patient discussed with ID attending Dr. Hein. Thank you for the consult. ID consult service will continue to follow. Please page ID Red team (pager [phone]) with questions or concerns. Emmanuel Corey, DO Internal Medicine PGY-2 Pager: [phone] Epic Chat 05/16/2024 Associated attestation - Rodriguez Hein MD - 05/16/2024 8:06 PM EDT ID Attending Addendum: I have seen and examined this patient. I have reviewed and agree with the history, findings, assessment, and plan of care as documented in Dr. Corey's note. The assessment and plan were formulated in discussion with me. The toe culture from the OR on 05/14/24 is growing coagulase negative Staphylococcus species - susceptibilities pending. Looking at our antibiogram, 46% are methicillin-susceptible.We have recommended to hold vancomycin at this time given the Cr rise from 1.56 -> 2.46 -> 2.88. Mr. Shanks remains on IV ceftriaxone which does not require renal dose adjustment. If the coagulase negative Staphylococcus is methicillin-resistant, then we will recommend renally dosed daptomycin. Otherwise, we are planning for a 6 week course of ceftriaxone. We will review the microbiology this weekend and develop a discharge plan. Afebrile, WBC count trending down daily. Rodriguez Hein MD * Mihaela Galvan MD - 05/16/2024 6:44 AM EDT Images from the original note were not included. [facility] Medicine - Red Team Inpatient Progress Note ID: Jossy Shanks is a 69 y.o. year old male with past medical history of PMH of HTN, HFpEF, CKD (bsl Cr ~1.5), IDDM, COPD (not on home O2), rate controlled Afib (Xarelto, dilt, coreg) admitted on 05/10/2024 ( Hospital Day 6 days ) for LE cellulitis 2/2 R foot trauma. Active Hospital Problems Diagnosis Septic shock Resolved Hospital Problems No resolved problems to display. Interval History: - Downgraded from MICU 05/11, continued on zosyn for GPC and GNRs seen in wound culture, c/f osteomyelitis - RLE duplex and ANGY PRELIM as of 05/13 grossly normal - OR 05/14, with amp of 2nd toe - wheezy after OR, received duonemb and mag x1 - prox culture with rare Gram Positive Cocci - has been on vanc and ceftriaxone - blood culture: no growth at 5 days Meds: vancomycin 1.5 g Intravenous Once insulin lispro 1-6 Units Subcutaneous Q4H VLAD insulin glargine (Lantus;Semglee) (100 unit/mL) subcutaneous injection 12 Units Subcutaneous Nightly rivaroxaban 15 mg Oral Daily cefTRIAXone 2 g Intravenous Q24H insulin lispro 0-8 Units Subcutaneous TID WC carvediloL 25 mg Oral BID dilTIAZem 60 mg Oral Q6H VLAD PRN medications vancomycin- intermittent dosing per levels, simethicone, ondansetron, oxyCODONE, melatonin, glucose 40% oral geL OR dextrose OR glucagon, ipratropium-albuteroL, acetaminophen Current Facility-Administered Medications Medication Dose Route Frequency vancomycin- intermittent dosing per levels NOT APPLICABLE Per Pharmacy simethicone (Gas-X Chew) 80 mg chewable tablet 80 mg 80 mg Oral Q6H PRN ondansetron (pf) (Zofran) (2 mg/mL) injection 4 mg 4 mg Intravenous Q8H PRN oxyCODONE (Roxicodone) tablet 5 mg 5 mg Oral Q4H PRN melatonin tablet 6 mg 6 mg Oral Nightly PRN glucose (Glutose) 40% oral geL 15-30 g of glucose Buccal Q15 Min PRN Or dextrose 10% infusion 250 mL Intravenous Q15 Min PRN Or glucagon (Glucagen) (1 mg/mL) injection solution 1 mg 1 mg Intramuscular Q15 Min PRN ipratropium-albuteroL (Duoneb) 0.5 mg-3 mg(2.5 mg base)/3 mL nebulizer solution 3 mL 3 mL Nebulization Q4H PRN acetaminophen (Tylenol) tablet 975 mg 975 mg Oral Q8H PRN Physical Exam: Last value Range last 24 hrs Temperature Temp: 36.8 ??C (98.2 ??F) Temp: [36.4 ??C (97.5 ??F)-36.9 ??C (98.4 ??F)] Heart Rate Heart Rate: 99 Heart Rate: [86-105] Blood Pressure BP: 160/87 BP: (122-160)/(68-87) Respiratory Rate Resp: 18 Resp: [16-18] SpO2 SpO2: 93 % SpO2: [86 %-98 %] Intake/Output Summary (Last 24 hours) at 05/16/2024 0645 Last data filed at 05/16/2024 0355 Gross per 24 hour Intake 680 ml Output 950 ml Net -270 ml Patient Vitals for the past 168 hrs: Weight 05/14/24 0950 (!) 157.5 kg (347 lb 3.6 oz) 05/11/24 0400 (!) 157.5 kg (347 lb 3.6 oz) 05/10/24 0215 (!) 159.8 kg (352 lb 4.7 oz) Admit wt: 159.8 kg Gen: AOx3, NAD Eyes: PERRLA, EOMI, anicteric ENT: moist mucous membranes, CV: irregular rate, without murmurs, rubs, or gallops Respiratory: b/l wheezing, without rales or rhonchi, good inspiratory effort Skin: dry cracking skin b/l lower extremities with hyperpigmentation and flake, right worse than left. Right with warmth, increased tenderness, and small increase in swelling when compared to left. Neuro: CN II-XII grossly intact, without focal deficits Ext: b/l le edema. Bandage over right distal foot Labs: Recent Labs 05/16/24 0514 05/15/24 0512 05/14/24 0501 WBC 11.6* 13.4* 15.5* HGB 10.5* 10.9* 10.8* HCT 33.8* 34.1* 32.8* PLATELET 317 227 190 Recent Labs 05/16/24 0514 05/15/24 0512 05/14/24 0501 NA 133* 135 137 K 5.0 5.2* 4.4 CL 101 100 105 CO2 21* 23 22 BUN 74* 58* 46* CREATININE 2.88* 2.46* 1.56* GLUCOSE 154 217* 172 Recent Labs 05/16/24 0514 05/15/24 0512 05/14/24 0501 CALCIUM 8.8 8.8 8.7 MAGNESIUM 1.22* 1.21* 0.98 PHOS 6.3* 6.5* 2.8 Recent Labs 05/10/24 0220 AST 21 ALT 19 ALKPHOS 42 BILITOT 0.5 BILIDIR 0.2 Imaging: MRI foot 05/10/2024 1. Soft tissue irregularity of the tip of the 2nd toe is presumed to correspond to focal soft tissue injury or an open wound. Recommend correlation with physical examination. No rim-enhancing soft tissue abscess. 2. Tiny 3 mm focus of osteitis of the distal tuft of the 2nd toe. 3. No MR evidence of tenosynovitis. 4. 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 05/12 Right duplex DVT leg: Interpretation RIGHT: No evidence of lower extremity deep venous thrombosis. Posterior tibial and peroneal veins are patent but were not adequately visualized to exclude non-occlusive thrombus 05/12 ANGY B/L Legs: Interpretation: RIGHT: No significant lower extremity arterial occlusive disease identified at rest. Normal ankle/brachial pressure ratios and ankle Doppler waveforms. Unable to obtain a toe pressure due to bandaging. LEFT: No significant lower extremity arterial occlusive disease identified at rest. Normal ankle/brachial pressure ratios and ankle Doppler waveforms. Microbiology: Microbiology Results (last 7 days) Procedure Component Value - Date/Time MRSA PCR Screen ([facility] [place]) [[id number]] Collected: 05/15/24 1615 Lab Status: Final result Specimen: Nasopharyngeal Swab Updated: 05/15/242012 MRSA Result Negative MRSA Interp -- Methicillin-resistant Staphylococcus aureus (MRSA) is NOT DETECTED The MRSA target DNA sequences (mec and SCC) were not detected within the acceptable ranges using the Xpert MRSA NxG on the GeneXpert Dx System ([employer]). This suggests the absence of MRSA in the patient specimen submitted for testing. This test is cleared by the U.S. Food and Drug Administration for clinical use and its performance characteristics have been verified by the [facility] at [facility]. This result does not rule out the presence of any other organisms. Rare false negative results may occur if MRSA is present at low concentrations with much higher concentrations of other organisms including MRSE or S. aureus with an empty SCC cassette. Comment: [VERIFIED DATE]05.15.24 Verified By:Lupe Jensen (Electronic Signature) Tissue Culture, Aerobic & Anaerobic Toe [[id number]] (Abnormal) Collected: 05/14/24 1133 Lab Status: Preliminary result Specimen: Toe Updated: 05/15/24 1212 Tissue culture [[id number]] (Abnormal) Collected: 05/14/24 1133 Lab Status: Preliminary result Specimen: Toe Updated: 05/15/24 1212 Tissue Culture No growth to date. Gram Stain -- Few Neutrophils seen Rare Gram Positive Cocci in pairs seen Results called to and read back by Dr. Mihaela Galvan 05/14/24 14:57:00 Organism Gram Positive Cocci in pairs Anaerobic Culture [[id number]] Collected: 05/14/24 1133 Lab Status: Preliminary result Specimen: Toe Updated: 05/15/24 1124 Anaerobic Culture No anaerobic organisms isolated to date Blood culture [[id number]] Collected: 05/10/24 0232 Lab Status: Final result Specimen: Blood from Hand, Right Updated: 05/15/24 0701 Blood Culture No growth at 5 days. Skin/Superficial Wound Culture Toe [[id number]] (Abnormal) Collected: 05/10/24 0256 Lab Status: Final result Specimen: Superficial Wound from Toe Updated: 05/12/24 1520 Skin/Superficial Wound Culture -- Rare mixed bacterial morphotypes suggestive of normal cutaneous armani including Rare Gram Negative Rods Gram Stain -- Many Neutrophils seen Few Gram Positive Cocci seen Organism Gram Negative Rods Gram Positive Cocci Assessment and Plan: Jossy Shanks is a 69 y.o. year old male with past medical history of HTN, HFpEF, CKD (bsl Cr ~1.5), IDDM, COPD (not on home O2), rate controlled Afib (Xarelto, dilt, coreg) admitted on 05/10/2024 ( Hospital Day 6 days ) for LE cellulitis 2/2 right foot trauma . Overall doing well, orthopedics was consulted in the MICU with concern for bone involvement. MRI w soft tissue irregularity of 2nd toe with osteitis in the distal tuft of 2nd toe. Amputation of 2nd transmetatarsal on 05/14 #Right lower extremity cellulitis #History of trauma to right foot #Chronic venous stasis, b/l #History of recurrent cellulitis #Suspected osteomyelitis POA #Septic shock at outside hospital, resolved MRI completed S/p R 2nd toe amputation Reviewed finalized RLE duplex and ANGY final read D/c Pip-tazo and vanc C/w start CTX Follow-up blood cultures Pending placement of line, picc vs tunneled cath Has offloading shoe Pending pt/ot eval to determine dispo needs #IDDM Home regiment: 1.2mg liraglutide qd, 20u glargine nightly, 8u lispro tid. Continue on glargine 10 units meal associated insulin, CHO 60/60/75 and sensitive SSI. Hyperglycemic 8/1 am after resumption insulin regimen, shifting back to nighty glargine Improved sugars from yesterday, will continue regimen as is #FISH on CKD POA (improving) #Oliguric FISH, prerenal, improving #Hyponatremia #Hyperkalemia #Hyperphosphatemia Previous FEUrea consistent with prerenal FISH C/w BMP daily and daily weights Monitor I's and O's Bun and Cr overall worse this am, but stabilizing possibly 2/2 delayed presentation of FISH after NPO course pre-op. Voiding spontaneously with no worry of retention #History of COPD Not on any home inhalers Wheezing noted post anesthesia, but at baseline now per primary team Continue on DuoNebs as needed #?KATIA - several de-sat ovn with noted snoring - referral to sleep medicine on dc #HFpEF #A-fib on Xarelto Holding home lasix iso prerenal FISH Resumed home dose 25 BID 05/13, tolerating well Home statin diltiazem IR 60 mg QID resuming Xarelto # Diet: Low Phos and Carb Control diet 60/60/75 CHO counting level 2 # DVT prophylaxis:Heparin, holding for pre-op # Fluids: NA # Access: 2IV in place # Dispo: pending clinical improvement # Code: Full Code Mihaela Galvan MD 05/16/2024 PGY-1, Internal Medicine Red Team - Pager [phone] Associated attestation - Treva Diaz MD - 05/16/2024 12:57 PM EDT Attending Attestation and Certification Please see Mihaela Galvan MD's note for details of the patient history of presentation and data.I have discussed, reviewed and agree with the documented History, Physical findings, Assessment andPlan of care. I have examined the patient myself and personally reviewed all studies. In addition, I certify thatI am a [facility] credentialed attending provider with admitting privileges and that the patient meets or has met medical necessity to require an inpatient IPI level of care meeting a minimum of two midnights or is on the [facility] inpatient only procedure list (status C) due to: RLE osteomyelitis s/p 2nd toe amputation. Proximal bone culture growing GPCs. Awaiting final OPAT recommendations. Off vancomycin. FISH on CKD likely pre-renal stabilizing with gentle iv fluids. Reaching out to nephrology team for approval of PICC vs tunneled cath. OT/PT consult for dispo. * Isra Rodriguez IV, DO - 05/16/2024 2:47 AM EDT ORTHOPAEDIC SURGERY INPATIENT PROGRESS NOTE Patient Name: Jossy Shanks Age: 69 y.o. Surgery/Issue: 2nd transmetatarsal amputation Attending: Dr. Garcia Date of surgery: 05/14/2024 SUBJECTIVE / INTERVAL HISTORY: AFVSS on 2L NC. OR cultures positive for GPC's. Creatinine bumped yesterday after initiation of IV Vanc. Reports that he felt globally unwell yesterday. AM labs pending. Pain is well controlled, offers no complaints. No fevers, chills, numbness, tingling or weakness. FOCUSED REVIEW OF SYSTEMS: as above. Active Hospital Problems Diagnosis Septic shock Resolved Hospital Problems No resolved problems to display. Active Non-Hospital Problems Diagnosis Degenerative lumbar spinal stenosis MEDICATIONS: POCT Fingerstick Glucose AND insulin lispro (HumaLOG;Admelog) (100 unit/mL) subcutaneous injection vial 1-6 Units vancomycin- intermittent dosing per levels insulin glargine-ygfn (Semglee) (100 unit/mL) subcutaneous injection vial 12 Units rivaroxaban (Xarelto) tablet 15 mg simethicone (Gas-X Chew) 80 mg chewable tablet 80 mg ondansetron (pf) (Zofran) (2 mg/mL) injection 4 mg oxyCODONE (Roxicodone) tablet 5 mg cefTRIAXone (Rocephin) 2 g vial attach to sodium chloride 0.9% 50 mL Mini-Bag Plus insulin lispro (HumaLOG;Admelog) (100 unit/mL) subcutaneous injection vial 0-8 Units carvediloL (Coreg) tablet 25 mg melatonin tablet 6 mg glucose (Glutose) 40% oral geL OR dextrose 10% infusion OR glucagon (Glucagen) (1 mg/mL) injection solution 1 mg ipratropium-albuteroL (Duoneb) 0.5 mg-3 mg(2.5 mg base)/3 mL nebulizer solution 3 mL acetaminophen (Tylenol) tablet 975 mg dilTIAZem (Cardizem) tablet 60 mg OBJECTIVE: Temp: [36.4 ??C (97.5 ??F)-36.9 ??C (98.4 ??F)] Heart Rate: [67-105] Resp: [16-18] BP: (122-152)/(68-85) Intake/Output Summary (Last 24 hours) at 05/16/2024 0247 Last data filed at 05/15/2024 2340 Gross per 24 hour Intake 800 ml Output 1400 ml Net -600 ml Body mass index is 43.4 kg/m??. PE: General: awake/alert, responds to questions CV: RRR assessed peripherally Resp: Breathing comfortably on 2L NC RLE: Dressing c/d/i Sensory intact to light touch in lat fem cut/fem/sural/saph/T distributions Motor intact to FHL/EHL/TA Lab Results Component Value Date NA 135 05/15/2024 K 5.2 (H) 05/15/2024 CL 100 05/15/2024 CO2 23 05/15/2024 BUN 58 (H) 05/15/2024 CREATININE 2.46 (H) 05/15/2024 GLUCOSE 217 (H) 05/15/2024 CALCIUM 8.8 05/15/2024 Lab Results Component Value Date WBC 13.4 (H) 05/15/2024 HGB 10.9 (L) 05/15/2024 HCT 34.1 (L) 05/15/2024 MCV 95.3 (H) 05/15/2024 PLATELET 227 05/15/2024 Lab Results Component Value Date INR 2.5 05/10/2024 ASSESSMENT / PLAN: Jossy Shanks is a 69 y.o. male 2 Days Post-Op s/p 2nd transmetatarsal amputation. Doing well post-operatively. OR cultures returning positive for GPC's, remains on CTX and Vancomycin, appreciate ID recs. He can weight bear as tolerated in his forefoot offloader shoe, which has yet to be provided and should be obtained today (05/16/2024). At this time, patient has met all inpatient orthopaedic surgical needs and we will sign off. He will return for a wound check and likely suture removal on 06/05/24. Please page [phone] with any questions or concerns. Activity: NWB until forefoot offloading shoe DVT prophylaxis: per primary, rec 30 days LVX or ASA81 BID Closure: Sutures (to be removed at Orthopaedic follow-up appointment) Dressing: bacitracin, xeroform, 4x4, kerlix, DEREK x 7 days Antibiotics: per primary Isra Rodriguez IV, DO 05/16/2024 Future Appointments Date Time Provider Department Center 06/05/2024 4:00 PM Elkin Garcia MD [facility] [place] [facility] [place] * Mihaela Galvan MD - 05/15/2024 6:41 AM EDT Images from the original note were not included. [facility] Medicine - Red Team Inpatient Progress Note ID: Jossy Shanks is a 69 y.o. year old male with past medical history of PMH of HTN, HFpEF, CKD (bsl Cr ~1.5), IDDM, COPD (not on home O2), rate controlled Afib (Xarelto, dilt, coreg) admitted on 05/10/2024 ( Hospital Day 5 days ) for LE cellulitis 2/2 R foot trauma. Active Hospital Problems Diagnosis Septic shock Resolved Hospital Problems No resolved problems to display. Interval History: - Downgraded from MICU 05/11, continued on zosyn for GPC and GNRs seen in wound culture, c/f osteomyelitis - RLE duplex and ANGY PRELIM as of 05/13 grossly normal - OR 05/14, with amp of 2nd toe - wheezy after OR, received duonemb and mag x1 - prox culture with rare Gram Positive Cocci - blood culture: no growth at 3 days Meds: insulin lispro 1-6 Units Subcutaneous Q4H VLAD cefTRIAXone 2 g Intravenous Q24H insulin lispro 0-8 Units Subcutaneous TID WC insulin glargine (Lantus;Semglee) (100 unit/mL) subcutaneous injection 12 Units Subcutaneous Daily carvediloL 25 mg Oral BID dilTIAZem 60 mg Oral Q6H VLAD heparin (porcine) 7,500 Units Subcutaneous Q8H VLAD PRN medications vancomycin, oxyCODONE, melatonin, glucose 40% oral geL OR dextrose OR glucagon, ipratropium-albuteroL, acetaminophen Current Facility-Administered Medications Medication Dose Route Frequency vancomycin (Vancocin) - dosing by AUC NOT APPLICABLE Per Pharmacy oxyCODONE (Roxicodone) tablet 5 mg 5 mg Oral Q4H PRN melatonin tablet 6 mg 6 mg Oral Nightly PRN glucose (Glutose) 40% oral geL 15-30 g of glucose Buccal Q15 Min PRN Or dextrose 10% infusion 250 mL Intravenous Q15 Min PRN Or glucagon (Glucagen) (1 mg/mL) injection solution 1 mg 1 mg Intramuscular Q15 Min PRN ipratropium-albuteroL (Duoneb) 0.5 mg-3 mg(2.5 mg base)/3 mL nebulizer solution 3 mL 3 mL Nebulization Q4H PRN acetaminophen (Tylenol) tablet 975 mg 975 mg Oral Q8H PRN Physical Exam: Last value Range last 24 hrs Temperature Temp: 36.4 ??C (97.5 ??F) Temp: [36.4 ??C (97.5 ??F)-37.2 ??C (99 ??F)] Heart Rate Heart Rate: 67 Heart Rate: [67-109] Blood Pressure BP: 133/70 BP: (130-151)/(70-89) Respiratory Rate Resp: 18 Resp: [17-32] SpO2 SpO2: 98 % SpO2: [93 %-98 %] Intake/Output Summary (Last 24 hours) at 05/15/2024 0700 Last data filed at 05/15/2024 0510 Gross per 24 hour Intake 1500 ml Output 1011 ml Net 489 ml Patient Vitals for the past 168 hrs: Weight 05/14/24 0950 (!) 157.5 kg (347 lb 3.6 oz) 05/11/24 0400 (!) 157.5 kg (347 lb 3.6 oz) 05/10/24 0215 (!) 159.8 kg (352 lb 4.7 oz) Admit wt: 159.8 kg Gen: AOx3, NAD Eyes: PERRLA, EOMI, anicteric ENT: moist mucous membranes, CV: irregular rate, without murmurs, rubs, or gallops Respiratory: clear to auscultation bilaterally, without rales or rhonchi, good inspiratory effort Skin: dry cracking skin b/l lower extremities with hyperpigmentation and flake, right worse than left. Right with warmth, increased tenderness, and swelling. Neuro: CN II-XII grossly intact, without focal deficits Ext: b/l le edema. Bandage over right distal foot Labs: Recent Labs 05/15/24 0505/14/24 0501 05/13/24 0529 WBC 13.4* 15.5* 15.5* HGB 10.9* 10.8* 10.9* HCT 34.1* 32.8* 33.3* PLATELET 227 190 186 Recent Labs 05/15/24 0505/14/24 05005/13/24 0529 NA 135 137 137 K 5.2* 4.4 4.4 CL 100 105 104 CO2 23 22 24 BUN 58* 46* 57* CREATININE 2.46* 1.56* 1.53* GLUCOSE 217* 172 166 Recent Labs 05/15/24 0505/14/24 0501 05/13/24 0529 CALCIUM 8.8 8.7 8.7 MAGNESIUM 1.21* 0.98 0.99 PHOS 6.5* 2.8 2.7 Recent Labs 05/10/24 0220 AST 21 ALT 19 ALKPHOS 42 BILITOT 0.5 BILIDIR 0.2 Imaging: MRI foot 05/10/2024 1. Soft tissue irregularity of the tip of the 2nd toe is presumed to correspond to focal soft tissue injury or an open wound. Recommend correlation with physical examination. No rim-enhancing soft tissue abscess. 2. Tiny 3 mm focus of osteitis of the distal tuft of the 2nd toe. 3. No MR evidence of tenosynovitis. 4. 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 05/12 Right duplex DVT leg: Interpretation RIGHT: No evidence of lower extremity deep venous thrombosis. Posterior tibial and peroneal veins are patent but were not adequately visualized to exclude non-occlusive thrombus 05/12 ANGY B/L Legs: Interpretation: RIGHT: No significant lower extremity arterial occlusive disease identified at rest. Normal ankle/brachial pressure ratios and ankle Doppler waveforms. Unable to obtain a toe pressure due to bandaging. LEFT: No significant lower extremity arterial occlusive disease identified at rest. Normal ankle/brachial pressure ratios and ankle Doppler waveforms. Microbiology: Microbiology Results (last 7 days) Procedure Component Value - Date/Time Tissue culture [[id number]] (Abnormal) Collected: 05/14/24 1133 Lab Status: Preliminary result Specimen: Toe Updated: 05/14/24 1459 Gram Stain -- Few Neutrophils seen Rare Gram Positive Cocci in pairs seen Results called to and read back by Dr. Mhiaela Galvan 05/14/24 14:57:00 Organism Gram Positive Cocci in pairs Blood culture [[id number]] Collected: 05/10/24 0232 Lab Status: Preliminary result Specimen: Blood from Hand, Right Updated: 05/14/24 0701 Blood Culture No growth at 4 days. Skin/Superficial Wound Culture Toe [[id number]] (Abnormal) Collected: 05/10/24 0256 Lab Status: Final result Specimen: Superficial Wound from Toe Updated: 05/12/24 1520 Skin/Superficial Wound Culture -- Rare mixed bacterial morphotypes suggestive of normal cutaneous armani including Rare Gram Negative Rods Gram Stain -- Many Neutrophils seen Few Gram Positive Cocci seen Organism Gram Negative Rods Gram Positive Cocci Assessment and Plan: Jossy Shanks is a 69 y.o. year old male with past medical history of HTN, HFpEF, CKD (bsl Cr ~1.5), IDDM, COPD (not on home O2), rate controlled Afib (Xarelto, dilt, coreg) admitted on 05/10/2024 ( Hospital Day 5 days ) for LE cellulitis 2/2 right foot trauma . Overall doing well, orthopedics was consulted in the MICU with concern for bone involvement. MRI w soft tissue irregularity of 2nd toe with osteitis in the distal tuft of 2nd toe. Pending ortho recs for surgical repair or debridement. #Right lower extremity cellulitis #History of trauma to right foot #Chronic venous stasis, b/l #History of recurrent cellulitis #Suspected osteomyelitis POA #Septic shock at outside hospital, resolved MRI completed Ortho planning for right 2nd toe amputation vs debridement today Reviewed finalized RLE duplex and ANGY final read D/c Pip-tazo C/w vancomycin and start CTX Follow-up blood cultures ID consult pending final recs #IDDM Home regiment: 1.2mg liraglutide qd, 20u glargine nightly, 8u lispro tid. Continue on glargine 10 units meal associated insulin, CHO 60/60/75 and sensitive SSI. Hyperglycemic 8 am after resumption insulin regimen, shifting back to nighty glargine Will consider increasing basal glargine should morning fasting sugars remain elevated #FISH on CKD POA (improving) #Oliguric FISH, prerenal, improving #Hyponatremia #Hyperkalemia #Hyperphosphatemia Previous FEUrea consistent with prerenal FISH C/w BMP daily and daily weights Monitor I's and O's Bun and Cr overall worse this am possibly 2/2 delayed presentation of FISH after NPO course pre-op. Considering other etiology including retention, which has been problematic for pt in past. F/u urine output, consider bladder scan if continued difficulty w voiding C/w MIVF #History of COPD Not on any home inhalers Wheezing noted post anesthesia, but at baseline now per primary team Continue on DuoNebs as needed #HFpEF #A-fib on Xarelto Holding home lasix iso prerenal FISH Resumed home dose 25 BID 05/13, tolerating well Home statin diltiazem IR 60 mg QID resuming Xarelto # Diet: Carb Control diet 60/60/75 CHO counting level 2 # DVT prophylaxis:Heparin, holding for pre-op # Fluids: NA # Access: 2IV in place # Dispo: pending clinical improvement # Code: Full Code Mihaela Galvan MD 05/15/2024 PGY-1, Internal Medicine Red Team - Pager [phone] Associated attestation - Treva Diaz MD - 05/16/2024 12:57 PM EDT Attending Attestation and Certification Please see Mihaela Galvan MD's note for details of the patient history of presentation and data.I have discussed, reviewed and agree with the documented History, Physical findings, Assessment andPlan of care. I have examined the patient myself and personally reviewed all studies. In addition, I certify thatI am a D-H credentialed attending provider with admitting privileges and that the patient meets or has met medical necessity to require an inpatient IPI level of care meeting a minimum of two midnights or is on the [facility] inpatient only procedure list (status C) due to: RLE osteomyelitis s/p 2nd toe amputation. Proximal bone culture growing GPCs. Awaiting final OPAT recommendations. Off vancomycin. FISH on CKD likely pre-renal stabilizing with gentle iv fluids. * Isra Rodriguez IV, DO - 05/15/2024 1:49 AM EDT ORTHOPAEDIC SURGERY INPATIENT PROGRESS NOTE Patient Name: Jossy Shanks Age: 69 y.o. Surgery/Issue: 2nd transmetatarsal amputation Attending: Dr. Garcia Date of surgery: 05/14/2024 SUBJECTIVE / INTERVAL HISTORY: AFVSS on 2L NC. OR cultures positive for GPC's, currently on Vancomycin and Ceftriaxone. AM labs pending. Pain is well controlled. No fevers, chills, numbness, tingling or weakness. FOCUSED REVIEW OF SYSTEMS: as above. Active Hospital Problems Diagnosis Septic shock Resolved Hospital Problems No resolved problems to display. Active Non-Hospital Problems Diagnosis Degenerative lumbar spinal stenosis MEDICATIONS: vancomycin (Vancocin) 1.75 gram in sodium chloride 0.9% 500 mL infusion vancomycin (Vancocin) - dosing by AUC oxyCODONE (Roxicodone) tablet 5 mg cefTRIAXone (Rocephin) 2 g vial attach to sodium chloride 0.9% 50 mL Mini-Bag Plus POCT Fingerstick Glucose AND insulin lispro (HumaLOG;Admelog) (100 unit/mL) subcutaneous injection vial 1-4 Units insulin lispro (HumaLOG;Admelog) (100 unit/mL) subcutaneous injection vial 0-8 Units insulin glargine-ygfn (Semglee) (100 unit/mL) subcutaneous injection vial 12 Units carvediloL (Coreg) tablet 25 mg melatonin tablet 6 mg glucose (Glutose) 40% oral geL OR dextrose 10% infusion OR glucagon (Glucagen) (1 mg/mL) injection solution 1 mg ipratropium-albuteroL (Duoneb) 0.5 mg-3 mg(2.5 mg base)/3 mL nebulizer solution 3 mL acetaminophen (Tylenol) tablet 975 mg dilTIAZem (Cardizem) tablet 60 mg heparin (porcine) (5,000 units/1 mL) subcutaneous injection 7,500 Units OBJECTIVE: Temp: [36.4 ??C (97.5 ??F)-37.2 ??C (99 ??F)] Heart Rate: [92-109] Resp: [17-32] BP: (130-151)/(72-89) Intake/Output Summary (Last 24 hours) at 05/15/2024 0144 Last data filed at 05/14/2024 1700 Gross per 24 hour Intake 1200 ml Output 1190 ml Net 10 ml Body mass index is 43.4 kg/m??. PE: General: awake/alert, responds to questions CV: RRR assessed peripherally Resp: Breathing comfortably on 2L NC RLE: Dressing c/d/i Sensory intact to light touch in lat fem cut/fem/sural/saph/T distributions Motor intact to FHL/EHL/TA Lab Results Component Value Date NA 137 05/14/2024 K 4.4 05/14/2024 CL 105 05/14/2024 CO2 22 05/14/2024 BUN 46 (H) 05/14/2024 CREATININE 1.56 (H) 05/14/2024 GLUCOSE 172 05/14/2024 CALCIUM 8.7 05/14/2024 Lab Results Component Value Date WBC 15.5 (H) 05/14/2024 HGB 10.8 (L) 05/14/2024 HCT 32.8 (L) 05/14/2024 MCV 92.4 05/14/2024 PLATELET 190 05/14/2024 Lab Results Component Value Date INR 2.5 05/10/2024 ASSESSMENT / PLAN: Jossy Shanks is a 69 y.o. male 1 Day Post-Op s/p 2nd transmetatarsal amputation. Doing well post-operatively. OR cultures returning positive for GPC's, remains on CTX and Vancomycin. Recommend engaging with ID for formal recs once sensitivities have returned. He can weight bearas tolerated but will require a forefoot offloader shoe. Rest of care per primary team. Activity: NWB until forefoot offloading shoe DVT prophylaxis: per primary, rec 30 days LVX or ASA81 BID Closure: Sutures (to be removed at Orthopaedic follow-up appointment) Dressing: bacitracin, xeroform, 4x4, kerlix, DEREK x 7 days Antibiotics: per primary Isra Rodriguez IV, DO 05/15/2024 Future Appointments Date Time Provider Department Center 06/05/2024 4:00 PM Elkin Garcia MD [facility] [place] [place] * Savannah Sy RN - 05/14/2024 1:45 PM EDT Pt continues to be wheezy despite neb. Pt states breathing is harder than usual. Anesthesia to bedside. Medicine team notified. 1345 pt states he feels better. Wheezing greatly diminished. Pt slim po sips. 1430 Report to Opal on L4WD. Pt awake, conversing well. States breathing is way better although still wheezing. Slim po sips. * Opal Stern RN - 05/14/2024 12:38 PM EDT 1230: RN break relief. Pt resting in bed. Expiratory wheezes audible, duoneb given. R foot wrapped in gauze and derek wrap, CDI. Anesthesia paged for continued exp wheezing, albuterol neb added and given. * Bigg Quinteros MD - 05/14/2024 12:34 PM EDT ORTHOPAEDIC SURGERY INPATIENT PROGRESS NOTE Patient Name: Jossy Shanks Age: 69 y.o. Surgery/Issue: 2nd transmetatarsal amputation Attending: Dr. Garcia Date of surgery: 05/14/2024 SUBJECTIVE / INTERVAL HISTORY: Pain well controlled. Patient denies chest pain, nausea, vomiting, numbness/weakness. Reports some shortness of breath which is his baseline with his COPD. FOCUSED REVIEW OF SYSTEMS: as above. Active Hospital Problems Diagnosis Septic shock Resolved Hospital Problems No resolved problems to display. Active Non-Hospital Problems Diagnosis Degenerative lumbar spinal stenosis MEDICATIONS: vancomycin (Vancocin) 1.75 gram in sodium chloride 0.9% 500 mL infusion vancomycin (Vancocin) - dosing by AUC lactated ringers infusion oxyCODONE (Roxicodone) tablet 5 mg carvediloL (Coreg) tablet 25 mg melatonin tablet 6 mg insulin lispro (HumaLOG;Admelog) (100 unit/mL) subcutaneous injection vial 0-8 Units insulin glargine-ygfn (Semglee) (100 unit/mL) subcutaneous injection vial 12 Units glucose (Glutose) 40% oral geL OR dextrose 10% infusion OR glucagon (Glucagen) (1 mg/mL) injection solution 1 mg ipratropium-albuteroL (Duoneb) 0.5 mg-3 mg(2.5 mg base)/3 mL nebulizer solution 3 mL acetaminophen (Tylenol) tablet 975 mg dilTIAZem (Cardizem) tablet 60 mg heparin (porcine) (5,000 units/1 mL) subcutaneous injection 7,500 Units piperacillin-tazobactam (Zosyn) 3.375 g vial attach to sodium chloride 0.9% 50 mL Mini-Bag Plus POCT Fingerstick Glucose AND insulin lispro (HumaLOG;Admelog) (100 unit/mL) subcutaneous injection vial 1-4 Units lactated Ringers 100 mL/hr (05/14/24 0809) OBJECTIVE: Temp: [36.4 ??C (97.5 ??F)-37.2 ??C (99 ??F)] Heart Rate: [98-109] Resp: [17-32] BP: (139-180)/(72-97) Intake/Output Summary (Last 24 hours) at 05/14/2024 1515 Last data filed at 05/14/2024 1400 Gross per 24 hour Intake 600 ml Output 1940 ml Net -1340 ml Body mass index is 43.4 kg/m??. PE: General: awake/alert, responds to questions CV: RRR assessed peripherally Resp: Breathing comfortably on 2L NC RLE: Dressing c/d/i Sensory intact to light touch in lat fem cut/fem/sural/saph/T distributions Motor intact to FHL/EHL/TA Lab Results Component Value Date NA 137 05/14/2024 K 4.4 05/14/2024 CL 105 05/14/2024 CO2 22 05/14/2024 BUN 46 (H) 05/14/2024 CREATININE 1.56 (H) 05/14/2024 GLUCOSE 172 05/14/2024 CALCIUM 8.7 05/14/2024 Lab Results Component Value Date WBC 15.5 (H) 05/14/2024 HGB 10.8 (L) 05/14/2024 HCT 32.8 (L) 05/14/2024 MCV 92.4 05/14/2024 PLATELET 190 05/14/2024 Lab Results Component Value Date INR 2.5 05/10/2024 ASSESSMENT / PLAN: Jossy Shanks is a 69 y.o. male Day of Surgery s/p 2nd transmetatarsal amputation. Doing well post-operatively. Discharge pending course. Activity: NWB until forefoot offloading shoe DVT prophylaxis: per primary, rec 30 days LVX or ASA81 BID Closure: Sutures (to be removed at Orthopaedic follow-up appointment) Dressing: bacitracin, xeroform, 4x4, kerlix, DEREK x 7 days Antibiotics: per primary Bigg Quinteros MD 05/14/2024 Future Appointments Date Time Provider Department Center 06/05/2024 4:00 PM Elkin Garcia MD [facility] [place] [facility] [place] * Mihaela Galvan MD - 05/14/2024 6:04 AM EDT [facility] Medicine - Red Team Inpatient Progress Note ID: Jossy Shanks is a 69 y.o. year old male with past medical history of PMH of HTN, HFpEF, CKD (bsl Cr ~1.5), IDDM, COPD (not on home O2), rate controlled Afib (Xarelto, dilt, coreg) admitted on 05/10/2024 ( Hospital Day 4 days ) for LE cellulitis 2/2 R foot trauma. Active Hospital Problems Diagnosis Septic shock Resolved Hospital Problems No resolved problems to display. Interval History: - [facility], continued on zosyn for GPC and GNRs seen in wound culture. Ortho following - wound cultures: GNR and GPC - blood culture: no growth at 3 days - c/f osteomyelitis - RLE duplex and ANGY PRELIM as of 05/13 grossly normal - ortho planning for OR today - pt NPO after midnight Meds: carvediloL 25 mg Oral BID insulin lispro 0-8 Units Subcutaneous 4 Times Daily AC & HS insulin glargine (Lantus;Semglee) (100 unit/mL) subcutaneous injection 12 Units Subcutaneous Daily dilTIAZem 60 mg Oral Q6H VLAD heparin (porcine) 7,500 Units Subcutaneous Q8H VLAD piperacillin-tazobactam 3.375 g Intravenous Q8H insulin lispro 1-4 Units Subcutaneous TID AC PRN medications melatonin, glucose 40% oral geL OR dextrose OR glucagon, ipratropium-albuteroL, acetaminophen, vancomycin- intermittent dosing per levels Current Facility-Administered Medications Medication Dose Route Frequency melatonin tablet 6 mg 6 mg Oral Nightly PRN glucose (Glutose) 40% oral geL 15-30 g of glucose Buccal Q15 Min PRN Or dextrose 10% infusion 250 mL Intravenous Q15 Min PRN Or glucagon (Glucagen) (1 mg/mL) injection solution 1 mg 1 mg Intramuscular Q15 Min PRN ipratropium-albuteroL (Duoneb) 0.5 mg-3 mg(2.5 mg base)/3 mL nebulizer solution 3 mL 3 mL Nebulization Q4H PRN acetaminophen (Tylenol) tablet 975 mg 975 mg Oral Q8H PRN vancomycin- intermittent dosing per levels NOT APPLICABLE Per Pharmacy Physical Exam: Last value Range last 24 hrs Temperature Temp: 36.7 ??C (98.1 ??F) Temp: [36.7 ??C (98.1 ??F)-37.2 ??C (99 ??F)] Heart Rate Heart Rate: (!) 109 Heart Rate: [109-119] Blood Pressure BP: 150/78 BP: (140-180)/(78-97) Respiratory Rate Resp: 18 Resp: [18-21] SpO2 SpO2: 93 % SpO2: [93 %-94 %] Intake/Output Summary (Last 24 hours) at 05/14/2024 0604 Last data filed at 05/14/2024 0400 Gross per 24 hour Intake -- Output 1775 ml Net -1775 ml Patient Vitals for the past 168 hrs: Weight 05/11/24 0400 (!) 157.5 kg (347 lb 3.6 oz) 05/10/24 0215 (!) 159.8 kg (352 lb 4.7 oz) Admit wt: 159.8 kg Gen: AOx3, NAD Eyes: PERRLA, EOMI, anicteric ENT: moist mucous membranes, CV: irregular rate, without murmurs, rubs, or gallops Respiratory: clear to auscultation bilaterally, without rales or rhonchi, good inspiratory effort Skin: dry cracking skin b/l lower extremities with hyperpigmentation and flake, right worse than left. Right with warmth, increased tenderness, and swelling. Bandage over right distal foot Neuro: CN II-XII grossly intact, without focal deficits Ext: b/l le edema Labs: Recent Labs 05/13/24 0529 05/12/24 04405/11/24 0200 WBC 15.5* 19.7* 25.8* HGB 10.9* 10.9* 10.9* HCT 33.3* 33.1* 32.5* PLATELET 186 165 141* Recent Labs 05/13/24 0529 05/12/24 0445 05/11/24 0200 NA 137 135 136 K 4.4 4.5 4.7 CL 104 101 100 CO2 BUN 57* 72* 72* CREATININE 1.53* 2.03* 2.58* GLUCOSE 166 156 212* Recent Labs 05/13/24 0529 05/12/24 0445 05/11/24 0200 CALCIUM 8.7 8.4* 8.3* MAGNESIUM 0.99 1.07 1.01 PHOS 2.7 2.7 4.0 Recent Labs 05/10/24 0220 AST 21 ALT 19 ALKPHOS 42 BILITOT 0.5 BILIDIR 0.2 Imaging: MRI foot 05/10/2024 1. Soft tissue irregularity of the tip of the 2nd toe is presumed to correspond to focal soft tissue injury or an open wound. Recommend correlation with physical examination. No rim-enhancing soft tissue abscess. 2. Tiny 3 mm focus of osteitis of the distal tuft of the 2nd toe. 3. No MR evidence of tenosynovitis. 4. 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 05/12 Right duplex DVT leg: Interpretation RIGHT: No evidence of lower extremity deep venous thrombosis. Posterior tibial and peroneal veins are patent but were not adequately visualized to exclude non-occlusive thrombus 05/12 ANGY B/L Legs: Interpretation: RIGHT: No significant lower extremity arterial occlusive disease identified at rest. Normal ankle/brachial pressure ratios and ankle Doppler waveforms. Unable to obtain a toe pressure due to bandaging. LEFT: No significant lower extremity arterial occlusive disease identified at rest. Normal ankle/brachial pressure ratios and ankle Doppler waveforms. Microbiology: Component 2 d ago Skin/Superficial Wound Culture Abnormal Rare mixed bacterial morphotypes suggestive of normal cutaneous armani including : Rare Gram Negative Rods Gram Stain Abnormal Many Neutrophils seen Few Gram Positive Cocci seen Organism Gram Negative Rods Abnormal Organism Gram Positive Cocci Abnormal Assessment and Plan: Jossy Shanks is a 69 y.o. year old male with past medical history of HTN, HFpEF, CKD (bsl Cr ~1.5), IDDM, COPD (not on home O2), rate controlled Afib (Xarelto, dilt, coreg) admitted on 05/10/2024 ( Hospital Day 4 days ) for LE cellulitis 2/2 right foot trauma . Overall doing well, orthopedics was consulted in the MICU with concern for bone involvement. MRI w soft tissue irregularity of 2nd toe with osteitis in the distal tuft of 2nd toe. Pending ortho recs for surgical repair or debridement. #Right lower extremity cellulitis #History of trauma to right foot #Chronic venous stasis, b/l #History of recurrent cellulitis #Suspected osteomyelitis POA #Septic shock at outside hospital, resolved MRI completed Ortho planning for right 2nd toe amputation vs debridement today Reviewed finalized RLE duplex and ANGY final read Continue Pip-tazo+vancomycin Follow-up blood cultures, and all cultures from upcoming procedure ID consult pending ortho OR course #IDDM Home regiment: 1.2mg liraglutide qd, 20u glargine nightly, 8u lispro tid. Continue on glargine 10 units meal associated insulin, CHO 60/60/75 and sensitive SSI. #FISH on CKD POA (improving) #Oliguric FISH, prerenal, improving #Hyponatremia #Hyperkalemia #Hyperphosphatemia FEUrea consistent with prerenal FISH BMP daily Daily weights Monitor I's and O's Bun and Cr overall down trending, with improving pre-renal Added MIVF this am #History of COPD Not on any home inhalers Continue on DuoNebs as needed #HFpEF #A-fib on Xarelto Holding home lasix iso prerenal FISH Resumed home dose 25 BID 05/13, tolerating ewll Home statin diltiazem IR 60 mg QID Holding home Xarelto for possible surgical procedure # Diet: Carb Control diet 60/60/75 CHO counting level 2 # DVT prophylaxis:Heparin, holding for pre-op # Fluids: NA # Access: 2IV in place # Dispo: pending clinical improvement # Code: Full Code Mihaela Galvan MD 05/14/2024 PGY-1, Internal Medicine Red Team - Pager [phone] Associated attestation - Treva Diaz MD - 05/15/2024 2:32 PM EDT Attending Attestation and Certification Please see Mihaela Galvan MD's note for details of the patient history of presentation and data.I have discussed, reviewed and agree with the documented History, Physical findings, Assessment andPlan of care. I have examined the patient myself and personally reviewed all studies. In addition, I certify thatI am a D-H credentialed attending provider with admitting privileges and that the patient meets or has met medical necessity to require an inpatient IPI level of care meeting a minimum of two midnights or is on the CMS inpatient only procedure list (status C) due to: RLE osteomyelitis s/p 2nd toe amputation. Proximal bone culture growing GPCs. Awaiting OPAT recommendations. FISH on CKD likely pre-renal. Will start gentle iv fluids today. * Isra Rodriguez IV, DO - 05/14/2024 1:35 AM EDT ORTHOPAEDIC SURGERY INPATIENT PROGRESS NOTE Patient Name: Jossy Shanks Age: 69 y.o. Surgery/Issue: R second toe osteomyelitis Attending: Dr. Garcia Date of surgery: 05/14/2024 SUBJECTIVE / INTERVAL HISTORY: Tachycardic and hypertensive overnight. Afebrile. WBC: 15.5, BUN/Creat: 57/1.53. Pain well controlled. On Vanc/Zosyn for GPC's and GNR's from wound culture. Blood cultures NGTD. Denies fevers, chills, n/v. All questions answered, patient opting to proceed with surgical intervention. FOCUSED REVIEW OF SYSTEMS: as above. Active Hospital Problems Diagnosis Septic shock Resolved Hospital Problems No resolved problems to display. Active Non-Hospital Problems Diagnosis Degenerative lumbar spinal stenosis MEDICATIONS: carvediloL (Coreg) tablet 25 mg melatonin tablet 6 mg insulin lispro (HumaLOG;Admelog) (100 unit/mL) subcutaneous injection vial 0-8 Units insulin glargine-ygfn (Semglee) (100 unit/mL) subcutaneous injection vial 12 Units glucose (Glutose) 40% oral geL OR dextrose 10% infusion OR glucagon (Glucagen) (1 mg/mL) injection solution 1 mg ipratropium-albuteroL (Duoneb) 0.5 mg-3 mg(2.5 mg base)/3 mL nebulizer solution 3 mL acetaminophen (Tylenol) tablet 975 mg vancomycin- intermittent dosing per levels dilTIAZem (Cardizem) tablet 60 mg heparin (porcine) (5,000 units/1 mL) subcutaneous injection 7,500 Units piperacillin-tazobactam (Zosyn) 3.375 g vial attach to sodium chloride 0.9% 50 mL Mini-Bag Plus POCT Fingerstick Glucose AND insulin lispro (HumaLOG;Admelog) (100 unit/mL) subcutaneous injection vial 1-4 Units OBJECTIVE: Temp: [36.7 ??C (98.1 ??F)-37.2 ??C (99 ??F)] Heart Rate: [109-119] Resp: [16-21] BP: (131-180)/(80-97) Intake/Output Summary (Last 24 hours) at 05/14/2024 0052 Last data filed at 05/14/2024 0000 Gross per 24 hour Intake -- Output 1675 ml Net -1675 ml Body mass index is 43.4 kg/m??. PE: General: awake/alert, responds to questions CV: RRR assessed peripherally Resp: Breathing comfortably on RA Right Lower Extremity Exam: Significant venous stasis changes up to proximal calf Raised ulceration of the distal aspect of the 2nd distal phalanx w/ surrounding cellulitis, wrappedwith Kerlix Painless range of motion of Hip / knee / ankle Sensation intact to light touch in Saphenous/Sural/LFC/Femoral/MP/LP/T/DP/SP distributions Motor intact hip flexion/extension, knee flexion/extension, ankle flexion/extension, EHL/FHL/TA Brisk capillary refill distally 2+ DP/PT pulses Lab Results Component Value Date NA 137 05/13/2024 K 4.4 05/13/2024 CL 104 05/13/2024 CO2 24 05/13/2024 BUN 57 (H) 05/13/2024 CREATININE 1.53 (H) 05/13/2024 GLUCOSE 166 05/13/2024 CALCIUM 8.7 05/13/2024 Lab Results Component Value Date WBC 15.5 (H) 05/13/2024 HGB 10.9 (L) 05/13/2024 HCT 33.3 (L) 05/13/2024 MCV 91.5 05/13/2024 PLATELET 186 05/13/2024 Lab Results Component Value Date INR 2.5 05/10/2024 IMAGING: MRI R Foot: osteitis involving the distal tuft of the 2nd toe. ASSESSMENT / PLAN: Jossy Shanks is a 69 y.o. male pended for right second toe amputation, level to be determined intraoperatively. MRI shows findings isolated to the 2nd toe distal tuft. Patient isclinically stable on Vanc and Zosyn per the primary team. He has remained afebrile. Will plan to proceed to the OR for the above procedure. Please page [phone] if there are any concerns regarding OR optimization. Please keep NPO. Activity: AAT DVT prophylaxis: per primary Antibiotics: per primary, on Vanc/Zosyn currently Isra Rodriguez IV, DO 05/14/2024 No future appointments. * Rodriguez Blackburn MD - 05/13/2024 11:24 AM EDT ORTHOPAEDIC SURGERY INTERVAL PROGRESS NOTE: Patient seen today, has taken some time to think and deliberate with familty about op vs non-op treatment for ulcer of R 2nd toe. At this time, he opts for operative management, with the understanding that it would likely involveamputation and that extent/level of amputation will be determined intraoperatively. He demonstrates understanding of all these, and asks about specific timing of the surgery. After counseling, operative consent form was signed, and the appropriate lower extremity was markedwith patient participation. Rodriguez Blackburn MD Orthopaedic Surgery [phone] Associated attestation - Lizbeth Bates MD - 05/15/2024 5:02 PM EDT Agree with resident note. Liyah Bates MD Department of Orthopaedics 05/15/24 * Mihaela Galvan MD - 05/13/2024 6:28 AM EDT [facility] Medicine - Red Team Inpatient Progress Note ID: Jossy Shanks is a 69 y.o. year old male with past medical history of PMH of HTN, HFpEF, CKD (bsl Cr ~1.5), IDDM, COPD (not on home O2), rate controlled Afib (Xarelto, dilt, coreg) admitted on 05/10/2024 ( Hospital Day 3 days ) for LE cellulitis 2/2 R foot trauma. Active Hospital Problems Diagnosis Septic shock Resolved Hospital Problems No resolved problems to display. Interval History: - Downgraded from [facility]U 05/11, continued on zosyn for GPC and GNRs seen in wound culture. Ortho following - wound cultures: GNR and GPC - blood culture: no growth at 3 days - c/f osteomyelitis - RLE duplex and ANGY PRELIM as of 05/13 grossly normal Meds: carvediloL 12.5 mg Oral BID insulin lispro 0-8 Units Subcutaneous 4 Times Daily AC & HS insulin glargine (Lantus;Semglee) (100 unit/mL) subcutaneous injection 12 Units Subcutaneous Daily dilTIAZem 60 mg Oral Q6H VLAD heparin (porcine) 7,500 Units Subcutaneous Q8H VLAD piperacillin-tazobactam 3.375 g Intravenous Q8H insulin lispro 1-4 Units Subcutaneous TID AC PRN medications melatonin, glucose 40% oral geL OR dextrose OR glucagon, ipratropium-albuteroL, acetaminophen, vancomycin- intermittent dosing per levels Current Facility-Administered Medications Medication Dose Route Frequency melatonin tablet 6 mg 6 mg Oral Nightly PRN glucose (Glutose) 40% oral geL 15-30 g of glucose Buccal Q15 Min PRN Or dextrose 10% infusion 250 mL Intravenous Q15 Min PRN Or glucagon (Glucagen) (1 mg/mL) injection solution 1 mg 1 mg Intramuscular Q15 Min PRN ipratropium-albuteroL (Duoneb) 0.5 mg-3 mg(2.5 mg base)/3 mL nebulizer solution 3 mL 3 mL Nebulization Q4H PRN acetaminophen (Tylenol) tablet 975 mg 975 mg Oral Q8H PRN vancomycin- intermittent dosing per levels NOT APPLICABLE Per Pharmacy Physical Exam: Last value Range last 24 hrs Temperature Temp: 37.1 ??C (98.8 ??F) Temp: [36.7 ??C (98.1 ??F)-37.2 ??C (99 ??F)] Heart Rate Heart Rate: 98 Heart Rate: -- Blood Pressure BP: 131/83 BP: (131-151)/(83-89) Respiratory Rate Resp: 16 Resp: [16-20] SpO2 SpO2: 94 % SpO2: [93 %-95 %] Intake/Output Summary (Last 24 hours) at 05/13/2024 0629 Last data filed at 05/13/2024 0400 Gross per 24 hour Intake -- Output 1900 ml Net -1900 ml Patient Vitals for the past 168 hrs: Weight 05/11/24 0400 (!) 157.5 kg (347 lb 3.6 oz) 05/10/24 0215 (!) 159.8 kg (352 lb 4.7 oz) Admit wt: 159.8 kg Gen: AOx3, NAD Eyes: PERRLA, EOMI, anicteric ENT: moist mucous membranes, CV: irregular rate, without murmurs, rubs, or gallops Respiratory: clear to auscultation bilaterally, without rales or rhonchi, good inspiratory effort Skin: dry cracking skin b/l lower extremities with hyperpigmentation and flake, right worse than left. Right with warmth, increased tenderness, and swelling. Bandage over right distal foot Neuro: CN II-XII grossly intact, without focal deficits Ext: b/l le edema Labs: Recent Labs 05/13/24 0505/12/2444405/11/24 0200 WBC 15.5* 19.7* 25.8* HGB 10.9* 10.9* 10.9* HCT 33.3* 33.1* 32.5* PLATELET 186 165 141* Recent Labs 05/13/24 0505/12/2444405/11/24 0200 NA 137 135 136 K 4.4 4.5 4.7 CL 104 101 100 CO2 BUN 57* 72* 72* CREATININE 1.53* 2.03* 2.58* GLUCOSE 166 156 212* Recent Labs 05/13/24 0505/12/2444405/11/24 0200 CALCIUM 8.7 8.4* 8.3* MAGNESIUM 0.99 1.07 1.01 PHOS 2.7 2.7 4.0 Recent Labs 05/10/24 0220 AST 21 ALT 19 ALKPHOS 42 BILITOT 0.5 BILIDIR 0.2 Imaging: MRI foot 05/10/2024 1. Soft tissue irregularity of the tip of the 2nd toe is presumed to correspond to focal soft tissue injury or an open wound. Recommend correlation with physical examination. No rim-enhancing soft tissue abscess. 2. Tiny 3 mm focus of osteitis of the distal tuft of the 2nd toe. 3. No MR evidence of tenosynovitis. 4. 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 Microbiology: Component 2 d ago Skin/Superficial Wound Culture Abnormal Rare mixed bacterial morphotypes suggestive of normal cutaneous armani including : Rare Gram Negative Rods Gram Stain Abnormal Many Neutrophils seen Few Gram Positive Cocci seen Organism Gram Negative Rods Abnormal Organism Gram Positive Cocci Abnormal Assessment and Plan: Jossy Shanks is a 69 y.o. year old male with past medical history of HTN, HFpEF, CKD (bsl Cr ~1.5), IDDM, COPD (not on home O2), rate controlled Afib (Xarelto, dilt, coreg) admitted on 05/10/2024 ( Hospital Day 3 days ) for LE cellulitis 2/2 right foot trauma . Overall doing well, orthopedics was consulted in the MICU with concern for bone involvement. MRI w soft tissue irregularity of 2nd toe with osteitis in the distal tuft of 2nd toe. Pending ortho recs for surgical repair or debridement. #Right lower extremity cellulitis #History of trauma to right foot #Chronic venous stasis #History of recurrent cellulitis #Suspected osteomyelitis POA #Septic shock at outside hospital (resolved) MRI completed Ortho saw and pending OR time with debriedment vs amputation Pending RLE duplex and ANGY final read Continue Pip-tazo+vancomycin Follow-up blood cultures ID consult pending ortho OR time #IDDM Home regiment: 1.2mg liraglutide qd, 20u glargine nightly, 8u lispro tid. Continue on glargine 10 units meal associated insulin, CHO 60/60/75 and sensitive SSI. #FISH on CKD POA (improving) #Oliguric FISH, prerenal, improving #Hyponatremia #Hyperkalemia #Hyperphosphatemia FEUrea consistent with prerenal FISH BMP daily Daily weights Monitor I's and O's Bun and Cr downtrending, with improving pre-renal #History of COPD Not on any home inhalers Continue on DuoNebs as needed #HFpEF #A-fib on Xarelto Holding home lasix iso prerenal FISH Was at 1/2 coreg, well tolerating, increasing back to home dose 25 BID 05/13 Home statin diltiazem IR 60 mg QID Holding home Xarelto for possible surgical procedure # Diet: Carb Control diet 60/60/75 CHO counting level 2 # DVT prophylaxis:Heparin, with hold for pre-op # Fluids: NA # Access: 2IV in place # Dispo: pending clinical improvement # Code: Full Code Mihaela Galvan MD 05/13/2024 PGY-1, Internal Medicine Red Team - Pager [phone] Associated attestation - Treva Diaz MD - 05/15/2024 2:33 PM EDT Attending Attestation and Certification Please see Mihaela Galvan MD's note for details of the patient history of presentation and data.I have discussed, reviewed and agree with the documented History, Physical findings, Assessment andPlan of care. I have examined the patient myself and personally reviewed all studies. In addition, I certify thatI am a D-H credentialed attending provider with admitting privileges and that the patient meets or has met medical necessity to require an inpatient IPI level of care meeting a minimum of two midnights or is on the [facility] inpatient only procedure list (status C) due to: RLE cellulitis with concern forosteomyelitis. Continue on iv antibiotics and follow up with orthopedics regarding any surgical debridement . * Sarwat Marti - 05/12/2024 2:20 PM EDT [facility] Encounter Note Patient Name: Jossy Shanks : [id number] MR#: [id number] Admit Date: 05/10/2024 2:12 AM Hospital Day 2 days Narrative:Visited to introduce and assess acceptance of [facility] services. Patient was sleeping and I will visit an other time. Assessment: Intervention and Outcome: Follow-up: Time in Direct Care: Sarwat Marti 05/12/2024 * Mihaela Galvan MD - 05/12/2024 6:36 AM EDT [facility] Medicine - Red Team Inpatient Progress Note ID: Jossy Shanks is a 69 y.o. year old male with past medical history of PMH of HTN, HFpEF, CKD (bsl Cr ~1.5), IDDM, COPD (not on home O2), rate controlled Afib (Xarelto, dilt, coreg) admitted on 05/10/2024 ( Hospital Day 2 days ) for LE cellulitis 2/2 R foot trauma. Active Hospital Problems Diagnosis Septic shock Resolved Hospital Problems No resolved problems to display. Interval History: - Downgraded from MICU 05/11, continued on zosyn for GPC and GNRs seen in wound culture. Ortho following - wound cultures: GNR and GPC - blood culture: no growth at 2 days - c/f osteomyelitis - RLE duplex and ANGY PRELIM grossly normal Meds: carvediloL 12.5 mg Oral BID insulin lispro 0-8 Units Subcutaneous 4 Times Daily AC & HS insulin glargine (Lantus;Semglee) (100 unit/mL) subcutaneous injection 12 Units Subcutaneous Daily dilTIAZem 60 mg Oral Q6H VLAD heparin (porcine) 7,500 Units Subcutaneous Q8H VLAD piperacillin-tazobactam 3.375 g Intravenous Q8H insulin lispro 1-4 Units Subcutaneous TID AC PRN medications glucose 40% oral geL OR dextrose OR glucagon, ipratropium-albuteroL, acetaminophen, vancomycin- intermittent dosing per levels Current Facility-Administered Medications Medication Dose Route Frequency glucose (Glutose) 40% oral geL 15-30 g of glucose Buccal Q15 Min PRN Or dextrose 10% infusion 250 mL Intravenous Q15 Min PRN Or glucagon (Glucagen) (1 mg/mL) injection solution 1 mg 1 mg Intramuscular Q15 Min PRN ipratropium-albuteroL (Duoneb) 0.5 mg-3 mg(2.5 mg base)/3 mL nebulizer solution 3 mL 3 mL Nebulization Q4H PRN acetaminophen (Tylenol) tablet 975 mg 975 mg Oral Q8H PRN vancomycin- intermittent dosing per levels NOT APPLICABLE Per Pharmacy Physical Exam: Last value Range last 24 hrs Temperature Temp: 36.3 ??C (97.3 ??F) Temp: [36.3 ??C (97.3 ??F)-36.7 ??C (98.1 ??F)] Heart Rate Heart Rate: 98 Heart Rate: -- Blood Pressure BP: 136/87 BP: (118-144)/(77-87) Respiratory Rate Resp: 16 Resp: [16-20] SpO2 SpO2: 99 % SpO2: [95 %-99 %] Intake/Output Summary (Last 24 hours) at 05/12/2024 0650 Last data filed at 05/12/2024 0349 Gross per 24 hour Intake 1120 ml Output 1800 ml Net -680 ml Patient Vitals for the past 168 hrs: Weight 05/11/24 0400 (!) 157.5 kg (347 lb 3.6 oz) 05/10/24 0215 (!) 159.8 kg (352 lb 4.7 oz) Admit wt: 159.8 kg Gen: AOx3, NAD Eyes: PERRLA, EOMI, anicteric ENT: moist mucous membranes, CV: irregular rate, without murmurs, rubs, or gallops Respiratory: clear to auscultation bilaterally, without rales or rhonchi, good inspiratory effort Skin: dry cracking skin b/l lower extremities with hyperpigmentation and flake, right worse than left. Right with warmth, increased tenderness, and swelling. Neuro: CN II-XII grossly intact, without focal deficits Ext: b/l le edema Labs: Recent Labs 05/12/2444405/11/24 0200 05/10/24 0220 WBC 19.7* 25.8* 28.5* HGB 10.9* 10.9* 11.4* HCT 33.1* 32.5* 34.5* PLATELET 165 141* 135* Recent Labs 05/12/2444405/11/24 0200 05/10/24 0655 NA 135 136 128* K 4.5 4.7 5.0 CL 101 100 93* CO2 23 BUN 72* 72* 69* CREATININE 2.03* 2.58* 3.75* GLUCOSE 156 212* 193 Recent Labs 05/12/2444405/11/24 0200 05/10/24 0655 05/10/24 0220 CALCIUM 8.4* 8.3* 8.6 8.5 MAGNESIUM 1.07 1.01 -- 0.85 PHOS 2.7 4.0 5.1* 4.6* Recent Labs 05/10/24 0220 AST 21 ALT 19 ALKPHOS 42 BILITOT 0.5 BILIDIR 0.2 Imaging: MRI foot 05/10/2024 1. Soft tissue irregularity of the tip of the 2nd toe is presumed to correspond to focal soft tissue injury or an open wound. Recommend correlation with physical examination. No rim-enhancing soft tissue abscess. 2. Tiny 3 mm focus of osteitis of the distal tuft of the 2nd toe. 3. No MR evidence of tenosynovitis. 4. 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 Microbiology: Component 2 d ago Skin/Superficial Wound Culture Abnormal Rare mixed bacterial morphotypes suggestive of normal cutaneous armani including : Rare Gram Negative Rods Gram Stain Abnormal Many Neutrophils seen Few Gram Positive Cocci seen Organism Gram Negative Rods Abnormal Organism Gram Positive Cocci Abnormal Assessment and Plan: Jossy Shanks is a 69 y.o. year old male with past medical history of HTN, HFpEF, CKD (bsl Cr ~1.5), IDDM, COPD (not on home O2), rate controlled Afib (Xarelto, dilt, coreg) admitted on 05/10/2024 ( Hospital Day 2 days ) for LE cellulitis 2/2 right foot trauma . Overall doing well, orthopedics was consulted in the MICU with concern for bone involvement. MRI w soft tissue irregularity of 2nd toe with osteitis in the distal tuft of 2nd toe. Pending ortho recs for surgical repair or debridement. #Right lower extremity cellulitis #History of trauma to right foot #Chronic venous stasis #History of recurrent cellulitis #Suspected osteomyelitis POA #Septic shock at outside hospital (resolved) MRI completed, will touch base with ortho with c/f ?osteomyelitis Pending RLE duplex final read Pending ABIs final read Continue Pip-tazo+vancomycin Follow-up blood cultures ID consult #IDDM Home regiment: 1.2mg liraglutide qd, 20u glargine nightly, 8u lispro tid. Continue on glargine 10 units meal associated insulin, CHO 60/60/75 and sensitive SSI. #FISH on CKD POA (improving) #Oliguric FISH, prerenal, improving #Hyponatremia #Hyperkalemia #Hyperphosphatemia FEUrea consistent with prerenal FISH BMP daily Daily weights Monitor I's and O's #History of COPD Not on any home inhalers Continue on DuoNebs as needed #HFpEF #A-fib on Xarelto Holding home lasix iso prerenal FISH at 1/2 dose coreg, well tolerating, consider increasing? Home statin diltiazem IR 60 mg QID Holding home Xarelto for possible surgical procedure. # Diet: Carb Control diet 60/60/75 CHO counting level 2 # DVT prophylaxis:Heparin # Fluids: NA # Access: 2IV in place # Dispo: pending clinical improvement # Code: Full Code Mihaela Galvan MD 05/12/2024 PGY-1, Internal Medicine Red Team - Pager [phone] Associated attestation - Treva Diaz MD - 05/13/2024 2:17 PM EDT Attending Attestation and Certification Please see Mihaela Galvan MD's note for details of the patient history of presentation and data.I have discussed, reviewed and agree with the documented History, Physical findings, Assessment andPlan of care. I have examined the patient myself and personally reviewed all studies. In addition, I certify thatI am a D-H credentialed attending provider with admitting privileges and that the patient meets or has met medical necessity to require an inpatient IPI level of care meeting a minimum of two midnights or is on the [facility] inpatient only procedure list (status C) due to: RLE cellulitis with concern forosteomyelitis. Continue on iv antibiotics and discuss with orthopedics regarding any urgent need for surgical debridement. * Rodriguez Tian MD - 05/11/2024 10:23 AM EDT [phone] - [facility] Daily Progress Note Admit Date: 05/10/2024 Encounter Date: May 11, 2024 Anticipated Discharge Date: 05/19/2024 Hospital Day: 1 24 Hour Events/Subjective: Downgraded from MICU yesterday, continued on zosyn for GPC and GNRs seen in wound culture. Ortho following NAOE This AM: Feeling well, denies fevers,chills, no foot pain, no n/v/d. Cr improving Objective: Last value Range last 24 hrs Temp: 36.6 ??C (97.9 ??F) Temp: [36.5 ??C (97.7 ??F)-36.6 ??C (97.9 ??F)] Heart Rate: 98 Heart Rate from SpO2: 88 bpm Heart Rate: [90-98] BP: 141/83 BP: (109-141)/(69-83) Resp: 20 Resp: [20-28] SpO2: 92 % SpO2: [91 %-96 %] Height: 190.5 cm (6' 3) Weight: (!) 157.5 kg (347 lb 3.6 oz) BMI (Calculated): 44.03 BMI Classification: Morbid Obesity Intake/Output Summary (Last 24 hours) at 05/11/2024 1023 Last data filed at 05/11/2024 0800 Gross per 24 hour Intake 1041 ml Output 2775 ml Net -1734 ml Patient Vitals for the past 72 hrs: Weight 05/11/24 0400 (!) 157.5 kg (347 lb 3.6 oz) 05/10/24 0215 (!) 159.8 kg (352 lb 4.7 oz) EXAM: GENERAL: Resting comfortably in bed, not in acute distress HEENT: clear oropharynx, moist mucous membranes, no elevated JVD PULM: Clear to auscultation bilaterally, no wheeze, no crackles, no rhonchi CV: RRR, no murmurs ABD: soft, not tender, not distended, no palpable masses MSK: chronic venous stasis changes in bilateral lower extremities. Right foot wrapped in gauze which appears c/d/i NEURO: AAOx3, no focal deficits, moves all 4 extremities - significant paresthesias in bilateral LEs PSYCH: Appropriate mood and affect Notable Labs: WBC 25.8 (down from 28.5) Hgb 10.9 Plt 141 Cr 2.58 (down from 3.75) Relevant Imaging: MRI foot 05/10/2024 1. Soft tissue irregularity of the tip of the 2nd toe is presumed to correspond to focal soft tissue injury or an open wound. Recommend correlation with physical examination. No rim-enhancing soft tissue abscess. 2. Tiny 3 mm focus of osteitis of the distal tuft of the 2nd toe. 3. No MR evidence of tenosynovitis. 4. 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 Assessment: Jossy Shanks is a 69 y.o. male w/ PMH of HTN, HFpEF, CKD (bsl Cr ~1.5), IDDM, COPD (not on home O2), rate controlled Afib (Xarelto, dilt, coreg), admitted to [facility] on 05/10/2024 with LE cellulitis 2/2 right foot trauma. Overall doing well, orthopedics was consulted in the MICU with concern for bone involvement. MRI yesterday showed soft tissue irregularity of 2nd toe with osteitis in the distal tuft of 2nd toe. Willtouch base with orthopedics regarding need for surgical repair or debridement. 05/11/24 Overall stable. His culture is growing GNR and GPC so will keep pip-tazo on today given concern forpossible polymicrobial foot infection. Will touch base with ortho regarding need for debridement orother surgery. Plan: #Right lower extremity cellulitis #History of trauma to right foot #Chronic venous stasis #History of recurrent cellulitis #Suspected osteomyelitis POA #Septic shock at outside hospital (resolved) Continue Pip-tazo+vancomycin Follow-up blood and wound cultures MRI completed, will touch base with ortho with c/f ?osteomyelitis Pending RLE duplex Pending ABIs #IDDM Home regiment: 1.2mg liraglutide qd, 20u glargine nightly, 8u lispro tid. Continue on glargine 10 units meal associated insulin, CHO 60/60/75 and sensitive SSI. #FISH on CKD POA (improving) #Oliguric FISH, prerenal, improving #Hyponatremia #Hyperkalemia #Hyperphosphatemia FEUrea consistent with prerenal FISH BMP daily Daily weights Monitor I's and O's #History of COPD Not on any home inhalers Continue on DuoNebs as needed #HFpEF #A-fib on Xarelto Holding home lasix iso prerenal FISH Restart home coreg at 1/2 dose, can increase to 25mg Bid tomorrow if tolerating Home statin diltiazem IR 60 mg QID Holding home Xarelto for possible surgical procedure. Diet: Carb Control diet 60/60/75 CHO counting level 2 Last BM documented: (HAT TRIMMER) DVT Prophylaxis: Heparin DOAC Code Status: Attempt Cardiopulmonary Resuscitation - Inpatient Rodriguez Tian MD Internal Medicine PGY3 Associated attestation - Treva Diaz MD - 05/11/2024 11:17 AM EDT Attending Attestation and Certification Please see Rodriguez Tian MD's note for details of the patient history of presentation and data. I have discussed, reviewed and agree with the documented History, Physical findings, Assessment and Plan of care. I have examined the patient myself and personally reviewed all studies. In addition, I certify thatI am a D-H credentialed attending provider with admitting privileges and that the patient meets or has met medical necessity to require an inpatient IPI level of care meeting a minimum of two midnights or is on the [facility] inpatient only procedure list (status C) due to: RLE cellulitis with concern forosteomyelitis. Continue on iv antibiotics and discuss with orthopedics regarding any urgent need for surgical debridement. * Mary De La Fuente MD - 05/10/2024 9:59 AM EDT Critical Care Staff I saw and examined the patient and reviewed all available data. Active Problems: Severe sepsis with early septic shock, now improved Cellulitis, right, with suspected osteomyelitis Previous history of right foot trauma from cinder block misadventure Hypotension, previously requiring vasopressors Venous stasis Acute kidney injury Type 2 diabetes mellitus Chronic atrial fibrillation Chronic heart failure with preserved ejection fraction Obesity, BMI = 44.03 kg/m2 History of Present Illness: 69 y.o. admitted to the intensive care unit for septic shock. Anna (middle name) dropped a cinder block on his right foot at the end of March. He performed local wound care and did not seek medical attention. He presented to a local emergency [facility] yesterday ([id number]) due to ongoing wound issues and new streaking redness on his foot. He was found to be hypotensive and given fluids, antibiotics, shifting therapies for hyperkalemia and started on vasopressors. He was weaned off vasopressors prior to transfer. Physical Exam Last value Range last 24 hrs Temperature Temp: 36.5 ??C (97.7 ??F) Temp: [36.5 ??C (97.7 ??F)-37.1 ??C (98.8 ??F)] Heart Rate Heart Rate: 88 Heart Rate: [88-92] Blood Pressure BP: 129/78 BP: (119-129)/(60-81) Respiratory Rate Resp: 21 Resp: [20-23] SpO2 SpO2: 92 % SpO2: [92 %-95 %] Art BP BP (Arterial Line): -- Body mass index is 44.03 kg/m??. Respiratory Support: Room air On exam, Anna is bearded, awake, alert, joking, somewhat indifferent to the state of his foot. B/l venous stasis changes, L>R LE edema which is mild. Cor reg, Lungs clear. Abdomen soft. Fluid Balance: Intake/Output Summary (Last 24 hours) at 05/10/2024 0959 Last data filed at 05/10/2024 0552 Gross per 24 hour Intake 20 ml Output 510 ml Net -490 ml Pertinent Labs WBC 28.5 Hgb 11.4 Platelets 135 INR 2.5 Na 128 K 5 Cl 93 HCO3 23 BUN 69 Cr 3.75 Ca 8.6 Mg 0.85 PO4 5.1 AST 21 ALT 19 Alk phos 42 T bili 0.5 D bili 0.2 Microbiology Blood cx pending Tissue cx GPC Radiology & Studies MRI completed, read pending CXR with bibasilar atelectasis Outside imaging reviewed Assessment and Plan Cellulitis with early septic shock at referring hospital, now improving with volume expansion and weaned off vasopressors prior to transfer. Needs ongoing IV antibiotics and orthopedic expertise, as well as ongoing care for acute kidney injury, but has no ICU needs and can transfer to a medical service for ongoing care. Neuro: No active issues CV: Weaned off vasopressors. Hold ARB, carvedilol. Diltiazem ok with hold parameters for Afib. Holdrivaroxaban. Resp: Tolerating NC GI: Discuss diet advancement with orthopedics Renal: Goal I = O. Hold home furosemide. Monitor urine output, Cr. No indication for renal replacement therapy Endo: Goal blood glucose 140-180. Sliding scale insulin, will need basal coverage when no longer NPO Heme: Hold home rivaroxaban (Afib). SQH PPX in interim. Duplex RLE ID: Vanc / zosyn. Follow cultures. Discuss MRI and potential need for source control with orthopedics Prophylaxis: Anticipate starting SQH, HOB > 30 Tubes/Lines/Drains: PIVs, godinez Code Status: Full Disposition: Transfer to medical service Mary De La Fuente MD IPI Certification I certify that I am a D-H credentialed attending provider with admitting privileges and that the patient meets or has met medical necessity to require an inpatient IPI level of care meeting a minimumof two midnights or is on the [facility] inpatient only procedure list (status C) due to: acute kidney injury necessitating close monitoring of fluid balance such as intravenous fluids and/or titration of medication to achieve optimal effect and minimize the chance of immediate or severe side effects and resolving septic shock * Niya Gill MD - 05/10/2024 6:26 AM EDT .ICU Blue Progress Note Patient information: Patient Name: Jossy Shanks : 1955 Date of Admission: 05/10/2024 ( Hospital Day 0 days ) ID: Jossy Castillo is a 69 y.o. year old male with PMH significant for IDDM, Afib rate controlled on Metoprolol, Xarelto , CKD (bsl cr 1.5), COPD not on home oxygen, HFpEF on Lasix, HTN on Losartan,who presented to [facility] for rt LE cellulitis, transferred to [facility] for septic shock. Interval Events: - lactate wnl - creat improved - can downgrade today insulin lispro 1-6 Units Subcutaneous Q4H VLAD dilTIAZem XR 240 mg Oral Daily piperacillin-tazobactam 4.5 g Intravenous Q8H Physical Exam: Vitals: Last value Range last 24 hrs Temperature Temp: 37 ??C (98.6 ??F) Temp: [36.9 ??C (98.4 ??F)-37 ??C (98.6 ??F)] Heart Rate Heart Rate: 90 Heart Rate: [90] Blood Pressure BP: 119/60 BP: (119-123)/(60-81) Respiratory Rate Resp: 23 Resp: [20-23] SpO2 SpO2: 94 % SpO2: [94 %] I/O: No intake/output data recorded. GEN: male in NAD, A&Ox4 HEENT: EOMI, pupils equal, no cervical LAD Card: irregular rhythm, nl rate, no m/r/g Pulm: CTAB, non productive cough, nl wob on RA Abd: distended but soft and non tender Neuro: no FND, moves all 4 extremities, nl speech Extremities: Left leg 2+ edema and chronic venous stasis changes. Right leg more edematous than left, erythema up to knee, warm to touch, right foot digit 2 & 3 w/ laceration, debris, oozing blood, and necrotic appearing tissue. Able to wiggle toes, sensation intact. Poor skin & nail Labs: .Last 3 wbc, hgb, hct plt Recent Labs 05/10/24219 WBC 28.5* HGB 11.4* HCT 34.5* PLATELET 135* Last 3 Lytes Recent Labs 05/10/24219 NA 129* K 5.3* CL 93* CO2 24 BUN 71* CREATININE 3.94* Last Ca, Mg, Phos Recent Labs 05/10/24219 CALCIUM 8.5 PHOS 4.6* MAGNESIUM 0.85 Microbiology: Wound cx: GPC Bgcx pending (2x) Diagnotic Tests/Imaging: Results for orders placed or performed during the hospital encounter of 05/10/24 XR Chest One View (Exam End: 05/10/2024 2:37 AM) Result Value WORKSTATION ID [id number] Impression Bibasilar atelectasis. Thank you for letting us participate in the care of this patient. If you are a health care provider and have any questions regarding this report, please contact the number below. For patients who have questions please contact the health care connector that requested your imaging first. foot pending - may need leg MRI too CXR above Assessment and Plan Jossy Shanks is a 69 y.o. year old male w/ HTN, HFpEF, CKD (bsl Cr ~1.5), IDDM, COPD (not on homeO2), rate controlled Afib (Xarelto, dilt, coreg) who is transferred for septic shock 2/2 rt LE cellulitis iso rt foot trauma. Blood and wound cultures pending, OSH wound gram stain +GPC. Will tx with empiric vanc/zosyn, likely polymicrobial infection iso rt toe wound w/ underlying DM. Reassuringly CT showed no signs of gangrenous infection. Lactate 2.3, s/p fluid resuscitation and off pressors for several hours. MRI rightLE ordered to examine for osteomyelitis. ABIs pending. Ortho consulted, appreciate recs; last took xarelto 6/26 AM. FISH likely pre-renal iso sepsis, urine studies pending. Hyperkalemia shifted at OSH. Oliguric. Willmonitor for urgent dialysis needs, none at this moment and reassuringly Cr trending down and UOP improved. Reported hx of COPD but not on tx. Does not appear to be a COPD exacerbation, will not continue steroids. Overall pt is stabilized, no icu needs at this time. Neuro Analgesia:Tylenol Respiratory #Hx of COPD -not on home treatment -d/c steroids -prn duonebs Cardiovascular #Septic shock, resolved -s/p IVF resuscitation -c/w empiric abx tx vanc (cont) zosyn (cont) cef (now dc) -off pressors for several hours -changed dilt to short acting 60 q6 starting tomorrow at 9 am #HFpEF #Afib, chronic -I/Os -hold home lasix 40mg qd -hold home xarelto in anticipation for OR today: resume if no procedure today -hold home coreg 25mg bid for at least 48 hours post pressor support -c/w home atorvastatin 40mg qd -c/w home diltiazem 240mg ER qd Endocrine #IDDM Home regiment: 1.2mg liraglutide qd, 20u glargine nightly, 8u lispro tid. A1c 5.9 -SSI -add DIANA when able to eat Renal/ #Oliguria, improving #Hyperkalemia, improving #Hyperphos, improving #Hyponatremia #FISH, Creatinine downtrending -trend electrolytes & Cr -consider nephrology consult to establish degree of CKD at baseline -monitor I/Os -renal diet when able to eat #MSK -Doppler US RLE Infectious Disease #Right LE cellulitis -empiric vanc/zosyn -bld cultures f/u -wound cultures GPC+ -ortho consult f/u today -MRI to r/o osteo f/u Routine -Code status: Attempt Cardiopulmonary Resuscitation - Inpatient -Access: PIVx2 -Lines: PIVx2 -Diet: Sips and Chips (Give Meds) -DVT ppx: holding home xarelto in anticipation for OR - SubQ Heparin BID starting 5pm 05/10 -Stress ulcer ppx: not indicated -DPOA: Primary Emergency Contact: Gifty Bucio, -Dispo: downgrade to hospital medicine if remains off pressors Graciela Gill MD PGY1 * Jayden Thomas MD - 05/10/2024 2:56 AM EDT [facility] [place] Initial Assessment Note I established audio/visual communication with the patient's room, reviewed the eDH. History and Assessment: 69 yo M w/ PMHx significant for T2DM, CHF, COPD, Afib on Xarelto transferred for septic shock and FISH due to toe cellulitis. WBC was 33K w/ lactate of 2.2. Received 1 L crystalloid and started on NE due to non-invasive SBPs in 70s. K+ was in high 5s; given insulin/dextrose. CAMERA: No distress VENT: N/A DRIPS: None Patient Vitals for the past 8 hrs: BP Temp Temp src Pulse Resp SpO2 Height Weight 05/10/24 0215 123/81 36.9 ??C (98.4 ??F) Oral 90 20 94 % 190.5 cm (6' 3) (!) 159.8 kg (352 lb 4.7 oz) No intake or output data in the 24 hours ending 05/10/24 0256 Recent Results (from the past 12 hour(s)) Lactate, whole blood, send to lab ([facility]) Result Value Lactate WB 2.3 (H) Prothrombin Time Result Value PT 27.9 (H) INR 2.5 Hemoglobin A1c Result Value Hemoglobin A1C 5.9 (H) Est Avg Gluc See note Hemogram Result Value WBC 28.5 (H) RBC 3.83 (L) Hemoglobin 11.4 (L) Hematocrit 34.5 (L) MCV 90.1 MCH 29.8 MCHC 33.0 Platelets 135 (L) RDWSD 51.9 (H) RDWCV 15.6 (H) MPV 12.8 nRBC % Auto 0.0 nRBC Abs Auto 0.000 POCT Glucose Result Value POC Glucose 201 (H) A/P: #Septic shock and FISH/hyperK+ presumed to be due to foot/toe cellulitis -Would continue broad-spectrum antibiotics -Repeat WBC down to 28K; would continue to trend and check repeat lactate -Consider plain films and further imaging of foot to exclude osteomyelitis, deep tissue infection if clinical appearance is worrisome -Awaiting [facility] admission K+ level and Chem 7 -Would hold outpt furosemide and consider gentle IVF #T2DM -Correctional insulin This is a non-billable note. documented in this encounter H&P Notes * Jonn Mena MD - 05/22/2024 4:28 PM EDT Procedure: egd Indication: possible ugib History of Present Illness: Jossy Shanks is a 69 y.o. man with possible uppeer gi bleed here for egd Patient Active Problem List Diagnosis Code Degenerative lumbar spinal stenosis M48.061 Septic shock A41.9, R65.21 Medications: Reviewed in EDH No Known Allergies Social History/Family History: Reviewed in EDH. No changes Exam: Patient Vitals for the past 24 hrs: Temp Heart Rate From SP02 Pulse Resp BP SpO2 O2 Flow Rate (L/min) O2 Device 05/21/24 1712 -- -- -- -- 110/54 -- -- -- 05/21/24 194 36.4 ??C (97.5 ??F) 91 bpm 91 21 145/69 97 % -- RA 05/21/248 36.3 ??C (97.3 ??F) 91 bpm -- 20 127/63 98 % -- RA 05/22/24 0349 -- 83 bpm -- -- -- 99 % -- -- 05/22/24 0350 36.5 ??C (97.7 ??F) (!) 106 bpm (!) 106 18 128/66 97 % -- RA 05/22/24 0351 -- 95 bpm -- -- -- 98 % -- -- 05/22/24 0534 -- 97 bpm -- -- 110/57 99 % -- -- 05/22/24 0803 36.4 ??C (97.5 ??F) 77 bpm -- 16 131/59 94 % -- RA 05/22/24 0808 -- 85 bpm -- -- -- 97 % -- -- 05/22/24 1159 36 ??C (96.8 ??F) 54 bpm -- 18 140/79 91 % -- RA 05/22/24 1200 -- -- -- -- -- -- -- RA 05/22/24 1320 36.5 ??C (97.7 ??F) -- 91 -- 148/71 99 % -- RA 05/22/24 1330 36.4 ??C (97.5 ??F) -- 80 19 146/71 -- -- -- 05/22/24 1350 36.4 ??C (97.5 ??F) -- 81 18 (!) 160/94 100 % -- RA 05/22/24 1400 -- 84 bpm -- -- 173/89 98 % -- -- 05/22/24 1405 36.2 ??C (97.2 ??F) 77 bpm 84 18 173/89 99 % -- RA 05/22/24 1415 -- 78 bpm 87 18 155/89 97 % -- -- 05/22/24 1430 -- 77 bpm 86 16 169/82 98 % -- -- 05/22/24 1440 -- -- 88 -- -- -- 3 L/min NC 05/22/24 1445 -- 81 bpm 85 16 176/78 98 % 3 L/min NC 05/22/24 1500 -- -- 87 22 182/89 97 % 3 L/min NC 05/22/24 1545 -- -- 87 20 133/74 98 % 3 L/min NC Axox3, nad Anicteric, MMM CTAB RRR, no m/r/g abd soft nt nd +bs Assessment and Plan: Proceed with EGD: ASA Grade: ASA 3 - Patient with moderate systemic disease with functional limitations Mallampati score:III (soft palate, base of uvula visible) Sedation plan: MAC Risks and benefits of the procedure were discussed with the patient. Consent has been signed. Jonn Mena MD * Jeramie Perez, - 05/21/2024 9:04 AM EDT INTERVENTIONAL RADIOLOGY FOCUSED H&P: Procedure: Planned procedure: Tunneled non-HD central venous catheter implant - single lumen The patient's history and physical exam have been reviewed and completed. There has been no interval change from that of the pre-operative history and physical exam done within the last 30 days. Physical Exam: Cardiovascular: Regular, Normal Pulmonary: Breath sounds clear to auscultation Abdomen: Soft nontender Vascular: bandage over the left foot The planned procedure (and sedation plan if appropriate) , its benefits and risks, and alternativeswere discussed with the patient. The patient consented to the procedure. PRE-SEDATION ASSESSMENT: Sedation Plan: moderate (conscious sedation) ASA: 3: Patient with severe systemic disease Mallampati: II: tonsillar pillars are blocked by the tongue Confirm NPO status: Yes History of anesthetic complications: No Current medications reviewed: Yes Allergies reviewed: Yes Source Note - Allyn Wilcox PA - 05/21/2024 7:19 AM EDT Images from the original note were not included. Interventional Radiology Focused Pre-procedure H&P: PCP: None Referring Provider: Anna Barber Planned procedure: Tunneled non-HD central venous catheter implant - single lumen Procedure indication: Osteomyelitis, central venous access required for half-way antibiotic use IR workflow: Procedure request received through Interventional Radiology eDH order queue. There are no answered order specific questions. History of Present Illness: Per chart review, Jossy Shanks is a 69 y.o. male with PMH of CKD, DM,COPD, A.fib, admitted for RLE cellulitis and osteomyelitis s/p 2ng toe amputation requiring half-way IV antibiotic administration who presents to Interventional Radiology to undergo tunneled non-HD central venous catheter implant (single lumen). Patient is also being monitored for possible lower GIB - Xarelto is being held at present. H/H 10.5/23.6. Tachycardic to 105 overnight, o/w hemodynamically stable on RA, and patient is consentable. Remainder of patient's medical and surgical history, allergies, medications, and social/family history obtained below as previously outlined in patient's medical record. IR History: None listed at [facility] Anticoagulation/Antiplatelet: None listed Labs: Lab Results Component Value Date HGB 7.5 (L) 05/21/2024 HGB 10.5 (L) 05/16/2024 HCT 23.6 (L) 05/21/2024 HCT 33.8 (L) 05/16/2024 WBC 14.49 (H) 05/21/2024 WBC 11.6 (H) 05/16/2024 PLATELET 388 (H) 05/21/2024 PLATELET 317 05/16/2024 INR 2.5 05/10/2024 BUN 110 (H) 05/21/2024 BUN 74 (H) 05/16/2024 CREATININE 3.04 (H) 05/21/2024 CREATININE 2.88 (H) 05/16/2024 ALBUMIN 3.3 05/10/2024 BILIDIR 0.2 05/10/2024 BILITOT 0.5 05/10/2024 AST 21 05/10/2024 ALT 19 05/10/2024 ALKPHOS 42 05/10/2024 Allergies: Patient has no known allergies. Imaging: CT chest 05/09/24 Assessment: 69 y.o. male with OM requiring ferry terminal agent IV ABX presenting to Interventional Radiology for tunneled non-HD CVC placement (single lumen). Plan Planned procedure: Tunneled non-HD central venous catheter implant - single lumen Labs to be performed day of procedure: No labs Sedation: Moderate (Conscious sedation) Prophylactic antibiotic : None Contrast: No contrast Additional medications for procedure: Lidocaine Position: Supine Consent: Pending Medications to discontinue (and days held): None Cytopathology presence needed: No Case Urgency:: D2- Within 24 hours (i.e. can be next day) Medications: No current facility-administered medications on file prior to encounter. Current Outpatient Medications on File Prior to Encounter Medication Sig Dispense Refill carvediloL (Coreg) 25 mg tablet Take 25 mg by mouth 2 times daily (with meals). liraglutide (VICTOZA) 0.6 mg/0.1 mL (18 mg/3 mL) Pen Injector Inject 1.2 mg subcutaneously daily. insulin lispro (HumaLOG) 100 unit/mL Insulin Pen Inject 8 Units subcutaneously 3 times daily (before meals). insulin glargine (Lantus) 100 unit/mL (3 mL) pen Inject 20 Units subcutaneously nightly. lisinopriL (Zestril) 5 mg tablet Take 5 mg by mouth daily. furosemide (LASIX) 20 mg Tablet Take 40 mg by mouth daily. 0 DILT-XR 240 mg Capsule,Degradable Cnt Release Take 240 mg by mouth daily. 0 XARELTO 15 mg Tablet Take 15 mg by mouth daily. 0 multivitamin (THERAGRAN) Tablet Take 1 tablet by mouth daily. Magnesium 200 mg Tablet Take 400 mg by mouth daily. acetaminophen (TYLENOL) 650 mg Tablet Sustained Release Take 1,300 mg by mouth every 8 hours as needed for Pain. Do not exceed 6 tabs in 24 hours Past Medical/Surgical history: Patient Active Problem List Diagnosis Code Degenerative lumbar spinal stenosis M48.061 Septic shock A41.9, R65.21 No past medical history on file. Past Surgical History: Procedure Laterality Date PRO AMPUTATION METATARSAL+TOE, SINGLE Right 05/14/2024 AMPUTATION, TRANSMETATARSAL TOE, ONE TOE (WRVU 6.64) performed by Elkin Garcia MD at [facility] MA[facility] OR Social History and Habits: Social History Tobacco Use Smoking status: Former Smokeless tobacco: Never Significant Family History: No family history on file. Pertinent ROS: as per HPI Physical Exam: Pending (to be performed in IR the day of procedure) ASA: Pending (to be assessed in IR the day of procedure) Mallampati class: Pending (to be assessed in IR the day of procedure) 05/21/2024 Allyn Wilcox PA-C * Allyn Wilcox PA - 05/21/2024 7:19 AM EDT Images from the original note were not included. Interventional Radiology Focused Pre-procedure H&P: PCP: None Referring Provider: Anna Barber Planned procedure: Tunneled non-HD central venous catheter implant - single lumen Procedure indication: Osteomyelitis, central venous access required for half-way antibiotic use IR workflow: Procedure request received through Interventional Radiology eDH order queue. There are no answered order specific questions. History of Present Illness: Per chart review, Jossy Shanks is a 69 y.o. male with PMH of CKD, DM,COPD, A.fib, admitted for RLE cellulitis and osteomyelitis s/p 2ng toe amputation requiring ferry terminal agent IV antibiotic administration who presents to Interventional Radiology to undergo tunneled non-HD central venous catheter implant (single lumen). Patient is also being monitored for possible lower GIB - Xarelto is being held at present. H/H 10.5/23.6. Tachycardic to 105 overnight, o/w hemodynamically stable on RA, and patient is consentable. Remainder of patient's medical and surgical history, allergies, medications, and social/family history obtained below as previously outlined in patient's medical record. IR History: None listed at [facility] Anticoagulation/Antiplatelet: None listed Labs: Lab Results Component Value Date HGB 7.5 (L) 05/21/2024 HGB 10.5 (L) 05/16/2024 HCT 23.6 (L) 05/21/2024 HCT 33.8 (L) 05/16/2024 WBC 14.49 (H) 05/21/2024 WBC 11.6 (H) 05/16/2024 PLATELET 388 (H) 05/21/2024 PLATELET 317 05/16/2024 INR 2.5 05/10/2024 BUN 110 (H) 05/21/2024 BUN 74 (H) 05/16/2024 CREATININE 3.04 (H) 05/21/2024 CREATININE 2.88 (H) 05/16/2024 ALBUMIN 3.3 05/10/2024 BILIDIR 0.2 05/10/2024 BILITOT 0.5 05/10/2024 AST 21 05/10/2024 ALT 19 05/10/2024 ALKPHOS 42 05/10/2024 Allergies: Patient has no known allergies. Imaging: CT chest 05/09/24 Assessment: 69 y.o. male with OM requiring half-way IV ABX presenting to Interventional Radiology for tunneled non-HD CVC placement (single lumen). Plan Planned procedure: Tunneled non-HD central venous catheter implant - single lumen Labs to be performed day of procedure: No labs Sedation: Moderate (Conscious sedation) Prophylactic antibiotic : None Contrast: No contrast Additional medications for procedure: Lidocaine Position: Supine Consent: Pending Medications to discontinue (and days held): None Cytopathology presence needed: No Case Urgency:: D2- Within 24 hours (i.e. can be next day) Medications: No current facility-administered medications on file prior to encounter. Current Outpatient Medications on File Prior to Encounter Medication Sig Dispense Refill carvediloL (Coreg) 25 mg tablet Take 25 mg by mouth 2 times daily (with meals). liraglutide (VICTOZA) 0.6 mg/0.1 mL (18 mg/3 mL) Pen Injector Inject 1.2 mg subcutaneously daily. insulin lispro (HumaLOG) 100 unit/mL Insulin Pen Inject 8 Units subcutaneously 3 times daily (before meals). insulin glargine (Lantus) 100 unit/mL (3 mL) pen Inject 20 Units subcutaneously nightly. lisinopriL (Zestril) 5 mg tablet Take 5 mg by mouth daily. furosemide (LASIX) 20 mg Tablet Take 40 mg by mouth daily. 0 DILT-XR 240 mg Capsule,Degradable Cnt Release Take 240 mg by mouth daily. 0 XARELTO 15 mg Tablet Take 15 mg by mouth daily. 0 multivitamin (THERAGRAN) Tablet Take 1 tablet by mouth daily. Magnesium 200 mg Tablet Take 400 mg by mouth daily. acetaminophen (TYLENOL) 650 mg Tablet Sustained Release Take 1,300 mg by mouth every 8 hours as needed for Pain. Do not exceed 6 tabs in 24 hours Past Medical/Surgical history: Patient Active Problem List Diagnosis Code Degenerative lumbar spinal stenosis M48.061 Septic shock A41.9, R65.21 No past medical history on file. Past Surgical History: Procedure Laterality Date PRO AMPUTATION METATARSAL+TOE, SINGLE Right 05/14/2024 AMPUTATION, TRANSMETATARSAL TOE, ONE TOE (WRVU 6.64) performed by Elkin Garcia MD at [facility] OR Social History and Habits: Social History Tobacco Use Smoking status: Former Smokeless tobacco: Never Significant Family History: No family history on file. Pertinent ROS: as per HPI Physical Exam: Pending (to be performed in IR the day of procedure) ASA: Pending (to be assessed in IR the day of procedure) Mallampati class: Pending (to be assessed in IR the day of procedure) 05/21/2024 Allyn Wilcox PA-C * Isra Rodriguez IV, DO - 05/14/2024 1:35 AM EDT 24-HOUR H&P UPDATE Jossy Shanks was seen and evaluated. No interval events or changes in health status since preoperative H+P. Denies angina, dyspnea, fevers, chills, or malaise within the last 14 days. All questionswere answered. Stable for surgery as scheduled. Alert and oriented RRR CTAB Jossy Shanks is a 69 y.o. male pended for R 2nd toe amputation. Isra Rodriguez IV, DO Orthopaedic Surgery [facility] * Carlotta Davis MD - 05/10/2024 5:48 PM EDT Inpatient Hospital Medicine Admission History and Physical Patient Name: JOSSY SHANKS Date of : 1955 Age: 69 y.o. Hospital Admit Date: 05/10/2024 Hospital Day: 0 Inpatient Attending: Treva Diaz MD PCP: None (None) No chief complaint on file. ID: Jossy Shanks is a 69 y.o. male w/ PMH of significant for IDDM, Afib rate controlled, CKD (bslcr 1.5), COPD not on home oxygen, HFpEF, HTN, admitted to [facility] on 05/10/2024, now on Hospital Day #0, for RLE cellulitis SUBJECTIVE History of Present Illness: Per admitting provider Jossy Shanks is a 69 y.o. year old male with PMH significant for IDDM, Afib rate controlled, CKD (bsl cr 1.5), COPD not on home oxygen, HFpEF, HTN who presented to [facility] for rt LE cellulitis, transferred to [facility] for RLE cellulitis after trauma to his foot Reports end of March he dropped cylinder block on rt foot, bleeding and painful. Kept bandaged and sock on it, same sock on it for the last week, reports sock became fused to wound. Denies paresthesia. Was able to walk w/out difficulty. In last several days erythema and edema spread upper Rt LE to knee. Fevers & chills for last 24hrs. [place] lightheaded, weak, & couldn't get out of chair yesterday prompting him to seek medical care. Denies N/V, head injury, CP, palpitations, reduced UOP, dysuria. Reports normal PO intake, last meal 6:30am 04/09. Reports home bgl 120-130s. Reports diarrheastarted yesterday AM. Reports acute SOB on arrival to OSH, attributes to hypotension and COPD. Denies any worsening in baseline cough. No home oxygen or treatment for reported COPD. OSH labs: WBC 32K, lactate 2.2, Cr 4.7, K 5.5, pH 7.3, pco3 54, bicarb 27. OSH blood & wound cultures obtained. S/p 2.5L IVF. 5mcg levo. Lactate improved. HR stable mid 70s, on RA 95%. Reportedly pt was wheezingand had increased WOB, given 125mg methyl pred and duonebs. Reportedly appears hypervolemic on examination. Oliguric. Hyperkalemic, given lokelma & shifted. Was started on vanc, cefepime, and zosyn. Wound culture gram stain: GPC. Wound was debrided but there was reportedly a piece of cloth the ED was unable to remove. Last tetanus vax in 2022. Right LE has no gas on CT. No acute findings on CT CAP. BP normalized and was off pressors prior to OSH departure. On arrival to [facility]: HR 96, o2 sat mid 90s on RA, BP 123/81, pt appeared comfortable NAD, reportedlyvasopressors had been off for several hours. Alert and oriented. HOSPITAL COURSE The patient was admitted to medical ICU with suspicion of septic shock in setting of right lower extremity cellulitis. The patient was hemodynamically stable wound culture was growing GPC's. Did not require any pressors. Orthopedic was consulted, based on radiographic findings there was suspicion of osteomyelitis and recommended obtaining MRI with without contrast of right foot, along with ABIs. Soft tissue irregularity of the tip of the 2nd toe is presumed to correspond to focal soft tissue injury or an open wound.No rim-enhancing soft tissue abscess. Tiny 3 mm focus of osteitis of the distal tuft of the 2nd toe. No MR evidence of tenosynovitis. Continued on vancomycin and Zosyn for antibio tics. The patient had oliguric FISH, suspected prerenal which improved with fluids. On the patient was not requiring pressors was upgraded to hospital medicine for further care Review of Systems (Positives in Bold): Per HPI Past Medical History: No past medical history on file. Patient Active Problem List Diagnosis Code Degenerative lumbar spinal stenosis M48.061 Septic shock A41.9, R65.21 Past Surgical History: No past surgical history on file. Social History: Social History Socioeconomic History Marital status: Single Spouse name: Not on file Number of children: Not on file Years of education: Not on file Highest education level: Not on file Occupational History Not on file Tobacco Use Smoking status: Former Smokeless tobacco: Never Substance and Sexual Activity Alcohol use: Not on file Drug use: Not on file Sexual activity: Not on file Other Topics Concern Not on file Social History Narrative Not on file Social Determinants of Health Financial Resource Strain: Not on file Food Insecurity: Not on file Transportation Needs: Not on file Physical Activity: Not on file Intimate Partner Violence: Not At Risk (05/10/2024) IPV Inpatient Questions Prevent Contact with Others: no Feels Threatened by Someone: no Feels Unsafe at Home: no Physical Signs of Abuse Present: no Housing Stability: Not on file Family History: No family history on file. Allergies: No Known Allergies Prior To Admission Medications: Medications Prior to Admission Medication Sig Dispense Refill Last Dose carvediloL (Coreg) 25 mg tablet Take 25 mg by mouth 2 times daily (with meals). 2024 liraglutide (VICTOZA) 0.6 mg/0.1 mL (18 mg/3 mL) Pen Injector Inject 1.2 mg subcutaneously daily. 2024 insulin lispro (HumaLOG) 100 unit/mL Insulin Pen Inject 8 Units subcutaneously 3 times daily (before meals). 2024 insulin glargine (Lantus) 100 unit/mL (3 mL) pen Inject 20 Units subcutaneously nightly. 05/08/2024 lisinopriL (Zestril) 5 mg tablet Take 5 mg by mouth daily. 2024 furosemide (LASIX) 20 mg Tablet Take 40 mg by mouth daily. 0 2024 DILT-XR 240 mg Capsule,Degradable Cnt Release Take 240 mg by mouth daily. 0 2024 XARELTO 15 mg Tablet Take 15 mg by mouth daily. 0 2024 multivitamin (THERAGRAN) Tablet Take 1 tablet by mouth daily. 2024 Magnesium 200 mg Tablet Take 400 mg by mouth daily. 2024 acetaminophen (TYLENOL) 650 mg Tablet Sustained Release Take 1,300 mg by mouth every 8 hours as needed for Pain. Do not exceed 6 tabs in 24 hours Unknown [DISCONTINUED] meTOPROLOL (LOPRESSOR) 100 mg Tablet Take 100 mg by mouth 2 times daily. 0 [DISCONTINUED] losartan (COZAAR) 50 mg Tablet Take 50 mg by mouth daily. 0 [DISCONTINUED] traMADol (ULTRAM) 50 mg Tablet Take 50 mg by mouth 4 times daily as needed. 0 Immunizations: There is no immunization history on file for this patient. OBJECTIVE: Vitals: Last value Range last 24 hrs Temperature Temp: 36.6 ??C (97.9 ??F) Temp: [36.5 ??C (97.7 ??F)-37.1 ??C (98.8 ??F)] Heart Rate Heart Rate: 98 Heart Rate: [88-102] Blood Pressure BP: 126/75 BP: (119-139)/(60-83) Art Line BP BP (Arterial Line): -- MAP (NBP): [78 mmHg-98 mmHg] Respiratory Rate Resp: 27 Resp: [20-27] SpO2 SpO2: 95 % SpO2: [92 %-95 %] Oxygen Delivery Oxygen Therapy O2 Device: None (Room air) Reason for Oxygen: Patient currently on room air Intake/Output Summary (Last 24 hours) at 05/10/2024 1836 Last data filed at 05/10/2024 1700 Gross per 24 hour Intake 241 ml Output 1735 ml Net -1494 ml I/O last 3 completed shifts: In: 20 [I.V.:20] Out: 510 [Urine:510] Body mass index is 44.03 kg/m??. Patient Vitals for the past 168 hrs: Weight 05/10/24 0215 (!) 159.8 kg (352 lb 4.7 oz) Admit wt: 159.8 kg Physical Exam: GENERAL: Awake, alert, no acute distress HEENT: Anicteric, no conjunctival injection CV: Irregular (A-fib), distant heart sounds owing to body habitus PULM: Normal respiratory effort, no accessory muscle use, audible wheeze ABDOMEN: Protuberant soft, non-tender, non-distended, no masses, no guarding EXTREMITIES: Lichenification of right lower extremity with dressing on distal right foot, chronic venous stasis left lower extremity similar to right. PSYCH/NEURO: Appropriate affect and cognition The patient is alert and oriented x 3 Has significant paresthesias in bilateral lower limbs -chronic Motor Exam: Upper Limb Bilateral: Cad Drafter Strength 5/5 Wrist Flexion/Extension 5/5 Elbow Flexion/Extension 5/5 Lower Limb Bilateral: Dorsi/Plantarflexion 5/5 Knee Flexion/Extension 5/5 Finger to nose test not significant Gait not assessed LABS: CBC: Recent Labs 05/10/24219 WBC 28.5* HGB 11.4* HCT 34.5* PLATELET 135* NEUTROABS 25.39* Chemistry: Recent Labs 05/10/24 0655 05/10/24219 NA 128* 129* K 5.0 5.3* CL 93* 93* CO2 23 24 BUN 69* 71* CREATININE 3.75* 3.94* GLUCOSE 193 196 ANIONGAP 12 12 Recent Labs 05/10/24 0655 05/10/24219 CALCIUM 8.6 8.5 MAGNESIUM -- 0.85 PHOS 5.1* 4.6* LFT's: Recent Labs 05/10/24219 BILITOT 0.5 BILIDIR 0.2 ALBUMIN 3.3 ALKPHOS 42 ALT 19 AST 21 Coags: Recent Labs 05/10/24219 PT 27.9* INR 2.5 Recent Labs 05/10/24219 INR 2.5 Cardiac enzymes: Recent Labs 05/10/24 0655 CK 58 Endocrine: No results for input(s): TSH, CORTISOL in the last 7068 hours. Invalid input(s): [id number] Recent Labs 05/10/24219 HA1C 5.9* Lipids: Heme: No results for input(s): LDH, HAPTOGLOBIN, URICACID in the last 168 hours. ABG (Arterial Blood Gas): No results found for: PHART, PO2ART, THH2OPC, PZH5RHC VBG (Venous Blood Gas): No results for input(s): PHVEN, PAS3CBC, PO2VEN, NEX5FHL, BEVEN, ZBC2NRF in the last 72hours. EKG: No results found for: DIAGLINE, QTCCALC Vascular: No results found for: VBTEXTRPT Microbiology: Date Type Result No results found for: URINECULTURE Lab Results Component Value Date/Time GRAMSTAIN (A) 05/10/2024 0256 Many Neutrophils seen Few Gram Positive Cocci seen No results found for: BLOODCX Imaging/Diagnostics: Results for orders placed or performed during the hospital encounter of 05/10/24 (from the past 48 hour(s)) XR Chest One View (Exam End: 05/10/2024 2:37 AM) Result Value WORKSTATION ID [id number] Impression Bibasilar atelectasis. Thank you for letting us participate in the care of this patient. If you are a health care provider and have any questions regarding this report, please contact the number below. For patients who have questions please contact the health care connector that requested your imaging first. Foot wwo Contrast Right (Exam End: 05/10/2024 5:51 AM) Result Value WORKSTATION ID [id number] Impression 1. Soft tissue irregularity of the tip of the 2nd toe is presumed to correspond to focal soft tissue injury or an open wound. Recommend correlation with physical examination. No rim-enhancing soft tissue abscess. [...] this report, please contact the number below. For patients who have questions please contact the health care connector that requested your imaging first. Electronically signed by: Trinidad Mota MD, [facility] ([phone]), at 05/10/2024 12:56 PM Medications: Scheduled: [START ON 05/11/2024] dilTIAZem 60 mg Oral Q6H [facility] heparin (porcine) 7,500 Units Subcutaneous Q8H VLAD [START ON 05/11/2024] insulin glargine (Lantus;Semglee) (100 unit/mL) subcutaneous injection 10 Units Subcutaneous Daily piperacillin-tazobactam 3.375 g Intravenous Q8H [START ON 05/11/2024] insulin lispro 0-8 Units Subcutaneous TID WC [START ON 05/11/2024] insulin lispro 1-4 Units Subcutaneous TID AC Continuous: PRN: glucose 40% oral geL OR dextrose OR glucagon, ipratropium- albuteroL, acetaminophen, vancomycin- intermittent dosing per levels ASSESSMENT and PLAN: Josys Shanks is a 69 y.o. male w/ PMH of HTN, HFpEF, CKD (bsl Cr ~1.5), IDDM, COPD (not on home O2), rate controlled Afib (Xarelto, dilt, coreg), admitted to [facility] on 05/10/[facility], now on Hospital Day #0, for rt LE cellulitis iso rt foot trauma. Will continue the patient on IV antibiotics. Pending culture results. Will follow-up with orthopedics if any further plans for further surgical intervention based on MRI findings. Holding Xarelto right now in setting of possible surgery, on heparin for DVT prophylaxis, consider switching to heparin drip. Based on FEUrea patient has prerenal FISH, suspected due to shock in setting of sepsis at the outside hospital. Will continue to monitor, consider gentle hydration. Remaining plan as below Right lower extremity cellulitis History of trauma to right foot Chronic venous stasis History of recurrent cellulitis Suspected osteomyelitis POA Septic shock at outside hospital (resolved) -Continue on Zosyn 4.5g every 8 hourly > 3.375 g every 8 hourly dose adjusted for renal functionand vancomycin pharmacy to dose -Follow-up on blood culture - Follow-up on wound culture results growing GPC -MRI showing Tiny 3 mm focus of osteitis of the distal tuft of the 2nd toe -Follow-up with orthopedics -Pending right lower extremity duplex -Pending bilateral ABIs IDDM Home regiment: 1.2mg liraglutide qd, 20u glargine nightly, 8u lispro tid. A1c 5.9 -Continue on glargine 10 units meal associated insulin, CHO 60/60/75 and sensitive SSI. FISH on CKD POA (improving) Oliguric FISH, prerenal Hyponatremia Hyperkalemia Hyperphosphatemia > FEUrea consistent with prerenal FISH -BMP daily -Daily weights -Monitor I's and O's History of COPD -Not on any long-term suppressive therapy -Continue on DuoNebs as needed HFpEF A-fib on Xarelto > Home meds: Lasix 40 Mg daily, carvedilol 25 mg twice daily, atorvastatin 40 mg, diltiazem 240 mg ER - Holding home lasix iso prerenal FISH - Holding home coreg for 48 hours after recent pressors (resume tomorrow) - Cont w lipitor - cont w diltiazem IR 60 mg QID -Holding home Xarelto for possible surgical procedure. Consider switching to heparin drip or Lovenox for anticoagulation in setting of A-fib - Daily weights - Is/Os #Housekeeping: DVT PPx: Heparin DOAC GI PPx: Diet: Carb Control diet 60/60/75 CHO counting level 2 Lines: PIV 05/10/24 18 gauge median cubital vein (antecubital fossa), right (Active) Number of days: 0 PIV 05/10/24 18 gauge median cubital vein (antecubital fossa), left (Active) Number of days: 0 Level of care: Med/surg Vitals: Q4H D/c planning: pending Code status: Full code Carlotta Davis MD Internal Medicine PGY2 Medicine Team: [place], Pager #[phone] Associated attestation - Treva Diaz MD - 05/11/2024 11:16 AM EDT Attending Staff Admission Documentation I certify that the patient requires: [x] inpatient care status due to [RLE cellulitis with concern for osteomyelitis] I have examined the patient myself on 05/10/24 and reviewed all labs and studies personally. Please see Dr. Muhammed S Ryan's documentation for details of the patient history of presentationand data. I have discussed, reviewed and agree with the documented history with ROS, physical findings, labs/studies, assessment and plan of care. * Anita Camacho MD - 2024 9:18 PM EDT ICU Admission History and Physical Patient information: Patient Name:Jossy Shanks : 1955 Service: Critical Care Responsible Attending: Tho Dickson MD PCP: None CC: sepsis 2/2 Rt LE cellulitis & rt foot wound History of Present Illness Jossy Shanks is a 69 y.o. year old male with PMH significant for IDDM, Afib rate controlled, CKD (bsl cr 1.5), COPD not on home oxygen, HFpEF, HTN who presented to [facility] for rt LE cellulitis, transferred to [facility] for septic shock. Reports end of March he dropped cylinder block on rt foot, bleeding and painful. Kept bandaged and sock on it, same sock on it for the last week, reports sock became fused to wound. Denies paresthesia. Was able to walk w/out difficulty. In last several days erythema and edema spread upper Rt LE to knee. Fevers & chills for last 24hrs. [place] lightheaded, weak, & couldn't get out of chair yesterday prompting him to seek medical care. Denies N/V, head injury, CP, palpitations, reduced UOP, dysuria. Reports normal PO intake, last meal 6:30am 04/09. Reports home bgl 120-130s. Reports diarrheastarted yesterday AM. Reports acute SOB on arrival to OSH, attributes to hypotension and COPD. Denies any worsening in baseline cough. No home oxygen or treatment for reported COPD. OSH labs: WBC 32K, lactate 2.2, Cr 4.7, K 5.5, pH 7.3, pco3 54, bicarb 27. OSH blood & wound cultures obtained. S/p 2.5L IVF. 5mcg levo. Lactate improved. HR stable mid 70s, on RA 95%. Reportedly pt was wheezingand had increased WOB, given 125mg methyl pred and duonebs. Reportedly appears hypervolemic on examination. Oliguric. Hyperkalemic, given lokelma & shifted. Was started on vanc, cefepime, and zosyn. Wound culture gram stain: GPC. Wound was debrided but there was reportedly a piece of cloth the ED was unable to remove. Last tetanus vax in 2022. Right LE has no gas on CT. No acute findings on CT CAP. BP normalized and was off pressors prior to OSH departure. On arrival to [facility]: HR 96, o2 sat mid 90s on RA, BP 123/81, pt appeared comfortable NAD, reportedlyvasopressors had been off for several hours. Alert and oriented. Review of Systems: Per HPI Past Medical History: Patient Active Problem List Diagnosis Code Degenerative lumbar spinal stenosis M48.061 Septic shock A41.9, R65.21 No past medical history on file. No past surgical history on file. Meds: No current facility-administered medications on file prior to encounter. Current Outpatient Medications on File Prior to Encounter Medication Sig Dispense Refill furosemide (LASIX) 20 mg Tablet Take 20 mg by mouth daily. 0 DILT-XR 240 mg Capsule,Degradable Cnt Release Take 240 mg by mouth daily. 0 meTOPROLOL (LOPRESSOR) 100 mg Tablet Take 100 mg by mouth 2 times daily. 0 losartan (COZAAR) 50 mg Tablet Take 50 mg by mouth daily. 0 XARELTO 15 mg Tablet Take 15 mg by mouth daily. 0 traMADol (ULTRAM) 50 mg Tablet Take 50 mg by mouth 4 times daily as needed. 0 multivitamin (THERAGRAN) Tablet Take 1 tablet by mouth daily. Magnesium 200 mg Tablet Take 400 mg by mouth daily. acetaminophen (TYLENOL) 650 mg Tablet Sustained Release Take 1,300 mg by mouth every 8 hours as needed for Pain. Do not exceed 6 tabs in 24 hours Allergies: No Known Allergies Social History: Tobacco: ex smoker quit in 2009, 43 pack year hx. EtOH: occasional Illicit drugs: marijuana Living Situation: lives alone, son lives 35 miles away. Does all ADLs independently, drives, mobilizes w/out assistance. Darion Morgan is DPOA; [phone] Physical Exam: Vitals: Last value Range last 24 hrs Temperature Temp: 36.9 ??C (98.4 ??F) Temp: [36.9 ??C (98.4 ??F)] Heart Rate Heart Rate: 90 Heart Rate: [90] Blood Pressure BP: 123/81 BP: (123)/(81) Respiratory Rate Resp: 20 Resp: [20] SpO2 SpO2: 94 % SpO2: [94 %] I/O: No intake/output data recorded. Physical Exam: GEN: male in NAD, A&Ox4 HEENT: EOMI, pupils equal, no cervical LAD Card: irregular rhythm, nl rate, no m/r/g Pulm: CTAB, non productive cough, nl wob on RA Abd: distended but soft and non tender Neuro: no FND, moves all 4 extremities, nl speech Extremities: Left leg 2+ edema and chronic venous stasis changes. Right leg more edematous than left, erythema up to knee, warm to touch, right foot digit 2 & 3 w/ laceration, debris, oozing blood, and necrotic appearing tissue. Able to wiggle toes, sensation intact. Poor skin & nail Laboratory: Recent Labs 05/10/24219 WBC 28.5* HGB 11.4* HCT 34.5* PLATELET 135* Recent Labs 05/10/24219 NA 129* K 5.3* CL 93* CO2 24 BUN 71* CREATININE 3.94* Recent Labs 05/10/24219 AST 21 ALT 19 ALKPHOS 42 BILITOT 0.5 BILIDIR 0.2 Recent Labs 05/10/24219 CALCIUM 8.5 PHOS 4.6* Imaging: No results found for this visit on 05/10/24. Microbiology: Microbiology Results (Last 30 days) No results found for the last 720 hours. Assessment/Plan: Jossy Shanks is a 69 y.o. year old male w/ HTN, HFpEF, CKD (bsl Cr ~1.5), IDDM, COPD (not on homeO2), rate controlled Afib who is transferred for septic shock 2/2 rt LE cellulitis iso rt foot trauma. Blood and wound cultures pending, OSH wound gram stain +GPC. Will tx with empiric vanc/zosyn, likely polymicrobial infection iso rt toe wound w/ underlying DM. Reassuringly CT showed no signs of gangrenous infection. Lactate 2.3, s/p fluid resuscitation and off pressors for several hours. MRI rightLE ordered to examine for osteomyelitis. ABIs pending. Ortho consulted, appreciate recs; last took xarelto 04/09 AM. FISH likely pre-renal iso sepsis, urine studies pending. Hyperkalemia shifted at OSH. Oliguric. Willmonitor for urgent dialysis needs, none at this moment and reassuringly Cr trending down and UOP improved. Reported hx of COPD but not on tx. Does not appear to be a COPD exacerbation, will not continue steroids. Overall pt is stabilized, no icu needs at this time. Respiratory #Hx of COPD -not on home treatment -d/c steroids -prn duonebs Cardiovascular #Septic shock, resolved -s/p IVF resuscitation -c/w empiric abx tx -off pressors for several hours -trend lactate #HFpEF #Afib, chronic -I/Os -hold home lasix 40mg qd -hold home xarelto in anticipation for OR -hold home coreg 25mg bid -c/w home atorvastatin 40mg qd -c/w home diltiazem 240mg ER qd Endocrine #IDDM Home regiment: 1.2mg liraglutide qd, 20u glargine nightly, 8u lispro tid. A1c 5.9 -SSI -add DIANA when able to eat Renal/ #Oliguria, improving #Hyperkalemia, improving #Hyperphos #Hyponatremia #FISH -trend electrolytes & Cr -urine analysis & micro -consider nephrology consult -monitor I/Os -lokelma & renal diet when able to eat Infectious Disease #Right LE cellulitis -empiric vanc/zosyn -bld cultures -wound cultures -ortho consult -MRI to r/o osteo Routine -Code status: Attempt Cardiopulmonary Resuscitation - Inpatient -Access: PIVx2 -Lines: PIVx2 -Diet: Sips and Chips (Give Meds) -DVT ppx: holding home xarelto in anticipation for OR -Stress ulcer ppx: not indicated -DPOA: Primary Emergency Contact: Gifty Bucio, -Dispo: downgrade to hospital medicine if remains off pressors Anita Camacho MD Internal Medicine, PGY2 05/10/2024 [facility] Pager #[phone] documented in this encounter Procedure Notes * Juan José Flowers MD - 05/21/2024 11:49 AM EDT IR PROCEDURE NOTE Procedure: Tunneled central venous catheter placement. Indication for Procedure: Per Allyn MIMS, Jossy Shanks is a 69 y.o. male with PMH of CKD, DM, COPD, A.fib, admitted for RLE cellulitis andosteomyelitis s/p 2ng toe amputation requiring ferry terminal agent IV antibiotic administration who presents to Interventional [...] patient was positioned supine on procedure table. Right neck base and upper chest prepped and draped, maximum sterile barrier techniquewas used throughout. Local anesthesia provided with 1% lidocaine and 1% lidocaine with epinephrine.Due to the painful nature of the procedure, patient received split doses of intravenous fentanyl and versed from the IR nurse while pulse, pressure, and oxygen saturation were continuously monitored. Right IJ accessed with micropuncture technique under U/S guidance and a 4Fr sheath placed. 8 FrenchCT injection compatible single lumen catheter was tunneled from upper chest to neck entry site. Guidewire was used to determine the length of catheter needed and catheter cut to length. 4Fr sheath exchanged over guide wire for peel away sheath. Catheter placed via peel away sheath with tip positioned in the right atrium under fluoroscopic guidance. Catheter flushed and aspirated readily. Neck incision closed with tissue adhesive and the catheter was secured with a suture. Medications: Fentanyl 100 mcg IV, Versed 2 mg IV, 1% Lidocaine <10ccs subcutaneous. Est Blood Loss: <5cc. Complications: No immediate. Impression: Placement of single-lumen 8 Fr tunneled central venous catheter via right IJ, catheter tip in right atrium, catheter ready for use. Resident/Fellow: None. Attending: Dr. Kristie Lin performed this procedure. I was present during the intraservice time as documented by the IR Nurse. documented in this encounter Miscellaneous Notes * Care Management Discharge - Shirley Samuel RN - 05/23/2024 3:20 PM EDT CARE MANAGEMENT FINAL DISCHARGE NOTE Chart reviewed, care reviewed with primary team and at interdisciplinary rounds. Patient is medically ready for discharge to [facility]. Needs for Transition of Care: Plan for discharge is: [facility] Facility / [facility] OPAT Orders: ID Consult Ordered Agency Referrals & Follow-up Care: [facility] [address] [place] [address] Transportation: family or friend will provide Wheelchair van/Ambulance? Yes Ambulance transportation is medically necessary at discharge related to Osteomyelitis of toe. I have discussed Medicare/Private Insurance reimbursement guidelines for ambulance transport. I have also discussed need to accept the closest facility able to meet clinical care needs of patient. Patient/support system verbalize understanding of their potential financial obligation and agree with ambulance transport. Functional status prior to admission: Independent Home Environment: Others in the home: alone. Current Living Arrangements: other (see comments). Accessibility Concerns: . Current Functional Ability: Assistive Person DME used at home: none DME Needed at Discharge: Patient is insured through: Primary Insurance: [employer] MANAGED MEDICARE Payor: [facility] MANAGED MEDICARE / Plan: [facility] MANAGED MEDICARE COMPLETE / Product Type: *No Product type* / Secondary Insurance: N/A Prescription Coverage: Yes This plan was formulated with input from patient and team. All are in agreement with plan. Shirley Samuel RN CM Associate Music Professor- Medicine Office of Care Management Ext: [phone] Pager: [phone] * Plan of Care - Juan José Lai RN - 05/23/2024 10:40 AM EDT OUTCOME EVALUATION NOTE: OUTCOME SUMMARY: Pt calm 7 cooperative. No complaints of pain. Pt did not ambulate today. Dressing on right foot CDI, came off once requiring reinforcement. MD aware. Pt's HGB stable upon recheck after melena overnight. PLAN MOVING FORWARD: D/c to rehab INDIVIDUALIZED FALL PREVENTION INTERVENTIONS: Patient-specific fall risk factors per assessment: [current deficits]: RLE infection, recent surgery Assistance [level of assistance required for transfers and ambulation]: 2x Max assist Supervision [direct monitoring required during toileting and ADLs]: 2x max assist Surveillance [continuous indirect monitoring]: Purposeful rounding, call light within reach Patient-specific fall prevention interventions for sensory deficits provided, if applicable: [X] N/A CARE PLAN GOAL OUTCOME EVALUATION: Problem: Adult Inpatient Plan of Care Goal: Plan of Care Review Outcome: Ongoing (Interventions Implemented as Appropriate) Goal: Patient-Specific Goal (Individualized) Outcome: Ongoing (Interventions Implemented as Appropriate) Goal: Absence of Hospital-Acquired Illness or Injury Outcome: Ongoing (Interventions Implemented as Appropriate) Intervention: Identify and Manage Fall Risk Flowsheets (Taken 05/22/2024802 by Trice Zaho RN) Safety Promotion/Fall Prevention: activity supervised assistive device/personal items within reach clutter free environment maintained fall prevention program maintained lighting adjusted mobility aid in reach nonskid shoes/slippers when out of bed room organization consistent safety round/check completed Intervention: Prevent Skin Injury Flowsheets (Taken 05/22/2024 08 by Trice Zhao, RN) Body Position: weight shifting Intervention: Prevent and Manage VTE (Venous Thromboembolism) Risk Flowsheets (Taken 05/22/2024802 by Trice Zhao, RN) VTE Prevention/Management: anticoagulant therapy Intervention: Prevent Infection Flowsheets (Taken 05/22/2024802 by Trice Zhao, RN) Infection Prevention: environmental surveillance performed equipment surfaces disinfected personal protective equipment utilized hand hygiene promoted rest/sleep promoted single patient room provided Goal: Optimal Comfort and Wellbeing Outcome: Ongoing (Interventions Implemented as Appropriate) Intervention: Provide Person-Centered Care Flowsheets (Taken 05/22/2024802 by Trice Zhao RN) Trust Relationship/Rapport: care explained choices provided emotional support provided empathic listening provided questions answered questions encouraged reassurance provided thoughts/feelings acknowledged Goal: Readiness for Transition of Care Outcome: Ongoing (Interventions Implemented as Appropriate) Intervention: Mutually Develop Transition Plan Flowsheets (Taken 05/11/2024 1446 by Jessica Stroud RN) Equipment Currently Used at Home: none Current Outpatient/Agency/Support Group: none Transportation Anticipated: family or friend will provide Transportation: no concerns Concerns to be Addressed: discharge planning Patient/Family Anticipated Services at Transition: none home health care Patient/Family Anticipates Transition to: home alone Readmission Within the Last 30 Days: no previous admission in last 30 days Problem: Glycemic Control Impaired (Sepsis/Septic Shock) Goal: Blood Glucose Level Within Desired Range Outcome: Ongoing (Interventions Implemented as Appropriate) Intervention: Optimize Glycemic Control Flowsheets (Taken 05/20/2024 1252 by Evelyn Prakash, JACKIE) Glycemic Management: blood glucose monitored insulin dose matched to carbohydrate intake Problem: Fall Injury Risk Goal: Absence of Fall and Fall-Related Injury Outcome: Ongoing (Interventions Implemented as Appropriate) Intervention: Identify and Manage Contributors Flowsheets (Taken 05/22/2024 08 by Trice Zhao RN) Medication Review/Management: medications reviewed Self-Care Promotion: independence encouraged BADL personal objects within reach BADL personal routines maintained safe use of adaptive equipment encouraged Intervention: Promote Injury-Free Environment Flowsheets (Taken 05/22/2024 08 by Trice Zhao RN) Safety Promotion/Fall Prevention: activity supervised assistive device/personal items within reach clutter free environment maintained fall prevention program maintained lighting adjusted mobility aid in reach nonskid shoes/slippers when out of bed room organization consistent safety round/check completed Problem: Adjustment to Surgery (Extremity Amputation) Goal: Optimal Coping with Amputation Outcome: Ongoing (Interventions Implemented as Appropriate) Intervention: Support Psychosocial Response Flowsheets Taken 05/22/2024 08 by Trice Zhao RN Supportive Measures: active listening utilized positive reinforcement provided problem-solving facilitated relaxation techniques promoted self-care encouraged verbalization of feelings encouraged Taken 05/21/20242007 by Alyssa Villalobos RN Family/Support System Care: self-care encouraged Problem: Infection (Extremity Amputation) Goal: Absence of Infection Signs and Symptoms Outcome: Ongoing (Interventions Implemented as Appropriate) Intervention: Prevent or Manage Infection Flowsheets (Taken 05/20/2024 08 by Evelyn Prakash, JACKIE) Fever Reduction/Comfort Measures: lightweight clothing lightweight bedding Infection Management: aseptic technique maintained Problem: Pain (Extremity Amputation) Goal: Acceptable Pain Control Outcome: Ongoing (Interventions Implemented as Appropriate) * Plan of Care - Saima Quinteros RN - 05/23/2024 3:37 AM EDT Problem: Adult Inpatient Plan of Care Goal: Plan of Care Review Outcome: Ongoing (Interventions Implemented as Appropriate) Goal: Patient-Specific Goal (Individualized) Outcome: Ongoing (Interventions Implemented as Appropriate) Goal: Absence of Hospital-Acquired Illness or Injury Outcome: Ongoing (Interventions Implemented as Appropriate) Goal: Optimal Comfort and Wellbeing Outcome: Ongoing (Interventions Implemented as Appropriate) Goal: Readiness for Transition of Care Outcome: Ongoing (Interventions Implemented as Appropriate) Problem: Glycemic Control Impaired (Sepsis/Septic Shock) Goal: Blood Glucose Level Within Desired Range Outcome: Ongoing (Interventions Implemented as Appropriate) Problem: Fall Injury Risk Goal: Absence of Fall and Fall-Related Injury Outcome: Ongoing (Interventions Implemented as Appropriate) Problem: Adjustment to Surgery (Extremity Amputation) Goal: Optimal Coping with Amputation Outcome: Ongoing (Interventions Implemented as Appropriate) Problem: Infection (Extremity Amputation) Goal: Absence of Infection Signs and Symptoms Outcome: Ongoing (Interventions Implemented as Appropriate) Problem: Pain (Extremity Amputation) Goal: Acceptable Pain Control Outcome: Ongoing (Interventions Implemented as Appropriate) * Plan of Care - Trice Zhao RN - 05/22/2024 7:53 PM EDT OUTCOME EVALUATION NOTE: OUTCOME SUMMARY: Patient A/OX4, VSS, pleasant and voiding into urinal at bedside. Jossy went to have an EGD today, where they found that he had an ulcer and were able to stop the bleeding. Scaffolder carolyn a hemoglobin when patient got back from Endoscopy. PLAN MOVING FORWARD: -Encourage OOB to chair -Encourage standing -Pain control -Discharge planning INDIVIDUALIZED FALL PREVENTION INTERVENTIONS: Patient-specific fall risk factors per assessment: [current deficits]: pain, weakness, unfamiliar environment, morbid obesity. Assistance [level of assistance required for transfers and ambulation]: 2 assist with walker vs lift Supervision [direct monitoring required during toileting and ADLs]: hands on Surveillance [continuous indirect monitoring]: Masimo and purposeful rounding Patient-specific fall prevention interventions for sensory deficits provided, if applicable: [X] N/A CARE PLAN GOAL OUTCOME EVALUATION: Ongoing Problem: Adult Inpatient Plan of Care Goal: Plan of Care Review Outcome: Ongoing (Interventions Implemented as Appropriate) Goal: Patient-Specific Goal (Individualized) Outcome: Ongoing (Interventions Implemented as Appropriate) Goal: Absence of Hospital-Acquired Illness or Injury Outcome: Ongoing (Interventions Implemented as Appropriate) Goal: Optimal Comfort and Wellbeing Outcome: Ongoing (Interventions Implemented as Appropriate) Goal: Readiness for Transition of Care Outcome: Ongoing (Interventions Implemented as Appropriate) Problem: Glycemic Control Impaired (Sepsis/Septic Shock) Goal: Blood Glucose Level Within Desired Range Outcome: Ongoing (Interventions Implemented as Appropriate) Problem: Infection Progression (Sepsis) Goal: Absence of Infection Signs and Symptoms Outcome: Outcome (s) achieved Problem: Fall Injury Risk Goal: Absence of Fall and Fall-Related Injury Outcome: Ongoing (Interventions Implemented as Appropriate) Problem: Adjustment to Surgery (Extremity Amputation) Goal: Optimal Coping with Amputation Outcome: Ongoing (Interventions Implemented as Appropriate) Problem: Bleeding (Extremity Amputation) Goal: Absence of Bleeding Outcome: Outcome (s) achieved Problem: Infection (Extremity Amputation) Goal: Absence of Infection Signs and Symptoms Outcome: Ongoing (Interventions Implemented as Appropriate) Problem: Pain (Extremity Amputation) Goal: Acceptable Pain Control Outcome: Ongoing (Interventions Implemented as Appropriate) * Op Note - Jonn Mena MD - 05/22/2024 4:39 PM EDT DH Operative Note Patient Name: Jossy Shanks : [id number] MR#: [id number] Case Date: 05/22/2024 Surgeon: Surgeons and Role: * Jonn Mena MD - Primary Procedure(s): EGD, UPPER GI ENDOSCOPY (WRVU 2.09) EGD, W CONTROL OF BLEEDING, ANY METHOD (WRVU 3.56) EGD, W DIRECTED SUBMUCOSAL INJECTION(S) (WRVU 2.39) Please see Provation report for details. * Plan of Care - Alyssa Villalobos RN - 05/22/2024 6:15 AM EDT OUTCOME EVALUATION NOTE: OUTCOME SUMMARY: A&Ox4, VSS on room air, afebrile. Denies chest pain, SOB, N/V. NPO after midnight. RLE dressingcame off. Kerlex dressing reappliedx2. Denied N/T. AUOP via urinal. No BM this shift, +flatus. Callbell within reach, pt able to make needs known appropriately. Pt able to rest between care PLAN MOVING FORWARD: Encourage ambulation/OOB Pain management Pulmonary Hygiene Monitor I&O, VS Q4H Q4H finger sticks D/C planning INDIVIDUALIZED FALL PREVENTION INTERVENTIONS: Patient-specific fall risk factors per assessment: [current deficits]: unfamiliar environment, lines, pain, generalized weakness, recent surgery, use of assistive device Assistance [level of assistance required for transfers and ambulation]: 1/2 Assist w/ FWW Supervision [direct monitoring required during toileting and ADLs]: Hands on Surveillance [continuous indirect monitoring]: Purposeful rounding, call light & personal itemswithin reach, room near nurses station, surveillance monitoring Patient-specific fall prevention interventions for sensory deficits provided, if applicable: Yes, light adjusted for task/safety, non-skid socks OOB CARE PLAN GOAL OUTCOME EVALUATION: Ongoing Problem: Adult Inpatient Plan of Care Goal: Plan of Care Review Outcome: Ongoing (Interventions Implemented as Appropriate) Goal: Patient-Specific Goal (Individualized) Outcome: Ongoing (Interventions Implemented as Appropriate) Goal: Absence of Hospital-Acquired Illness or Injury Outcome: Ongoing (Interventions Implemented as Appropriate) Goal: Optimal Comfort and Wellbeing Outcome: Ongoing (Interventions Implemented as Appropriate) Goal: Readiness for Transition of Care Outcome: Ongoing (Interventions Implemented as Appropriate) Problem: Glycemic Control Impaired (Sepsis/Septic Shock) Goal: Blood Glucose Level Within Desired Range Outcome: Ongoing (Interventions Implemented as Appropriate) Problem: Infection Progression (Sepsis) Goal: Absence of Infection Signs and Symptoms Outcome: Ongoing (Interventions Implemented as Appropriate) Problem: Fall Injury Risk Goal: Absence of Fall and Fall-Related Injury Outcome: Ongoing (Interventions Implemented as Appropriate) Problem: Adjustment to Surgery (Extremity Amputation) Goal: Optimal Coping with Amputation Outcome: Ongoing (Interventions Implemented as Appropriate) Problem: Bleeding (Extremity Amputation) Goal: Absence of Bleeding Outcome: Ongoing (Interventions Implemented as Appropriate) Problem: Infection (Extremity Amputation) Goal: Absence of Infection Signs and Symptoms Outcome: Ongoing (Interventions Implemented as Appropriate) Problem: Pain (Extremity Amputation) Goal: Acceptable Pain Control Outcome: Ongoing (Interventions Implemented as Appropriate) * Plan of Care - Yg Prince RN - 05/21/2024 7:58 PM EDT Problem: Adult Inpatient Plan of Care Goal: Plan of Care Review Outcome: Ongoing (Interventions Implemented as Appropriate) Goal: Patient-Specific Goal (Individualized) Outcome: Ongoing (Interventions Implemented as Appropriate) Goal: Absence of Hospital-Acquired Illness or Injury Outcome: Ongoing (Interventions Implemented as Appropriate) Goal: Optimal Comfort and Wellbeing Outcome: Ongoing (Interventions Implemented as Appropriate) Goal: Readiness for Transition of Care Outcome: Ongoing (Interventions Implemented as Appropriate) Problem: Glycemic Control Impaired (Sepsis/Septic Shock) Goal: Blood Glucose Level Within Desired Range Outcome: Ongoing (Interventions Implemented as Appropriate) Problem: Infection Progression (Sepsis) Goal: Absence of Infection Signs and Symptoms Outcome: Ongoing (Interventions Implemented as Appropriate) Problem: Fall Injury Risk Goal: Absence of Fall and Fall-Related Injury Outcome: Ongoing (Interventions Implemented as Appropriate) Problem: Adjustment to Surgery (Extremity Amputation) Goal: Optimal Coping with Amputation Outcome: Ongoing (Interventions Implemented as Appropriate) Problem: Bleeding (Extremity Amputation) Goal: Absence of Bleeding Outcome: Ongoing (Interventions Implemented as Appropriate) Problem: Infection (Extremity Amputation) Goal: Absence of Infection Signs and Symptoms Outcome: Ongoing (Interventions Implemented as Appropriate) Problem: Pain (Extremity Amputation) Goal: Acceptable Pain Control Outcome: Ongoing (Interventions Implemented as Appropriate) * Consult Note - Guillermina Quiroga MD - 05/21/2024 11:40 AM EDT Images from the original note were not included. DIVISION OF GASTROENTEROLOGY & HEPATOLOGY INITIAL CONSULT REQUESTING PROVIDER: Saba Spears MD NAME: Jossy Shanks : 1955 HPI: Jossy Spivey [place] 69 y.o. male with past medical history of PMH of HTN, HFpEF, CKD (bsl Cr ~1.5), IDDM, COPD (not on home O2), rate controlled Afib (Xarelto, dilt, coreg) admitted on 05/10/2024 for LE cellulitis 2/2 R foot trauma. GI consulted for possible GIB. Initially was admitted to ICU for concern of septic shock concerns but on arrival did not have any pressor requirements so transferred to hospital medicine. 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 He recently started to having rising BUN with concern for possible darkstools/ melena and hemoglobin slowly downtrending; from ~10 on 05/14 to 7.5 today; with counts slowly drifting down over the course of the past 7 days. Of note he takes xarelto QD for hx of afib; last dose yesterday AM. Denies any NSAID use at home. Reports using tylenol for pain control. Has intermittent hx of GERD but does not take PPI. Denies epigastric pain, dysphagia, odynophagia, hematemesis, BRBPR. Reports stools look dark/black. No bowel movement since yesterday. Denies sticky tarry stools. Reports had colonoscopy a few years ago, told he had a few polyps that were benign. Never had an EGD. Today reports feeling OK overall. Reports he had a busy morning get his line placed. This AM started on IV PPI BID and made NPO pending possible procedure. ROS: 10-system ROS negative other than that noted above PAST MEDICAL: No past medical history on file. PAST SURGICAL HX: Past Surgical History: Procedure Laterality Date IR TUNNELED CENTRAL VENOUS ACCESS NON-DIALYSIS 05/21/2024 IR Tunneled Central Venous Access Non-Dialysis 05/21/2024 Juan José Flowers MD [facility] INTERVENTIONL RAD PRO AMPUTATION METATARSAL+TOE, SINGLE Right 05/14/2024 AMPUTATION, TRANSMETATARSAL TOE, ONE TOE (WRVU 6.64) performed by Elkin Garcia MD at [facility] MAIN OR SOCIAL HX: Social History Socioeconomic History Marital status: Single Spouse name: Not on file Number of children: Not on file Years of education: Not on file Highest education level: Not on file Occupational History Not on file Tobacco Use Smoking status: Former Smokeless tobacco: Never Substance and Sexual Activity Alcohol use: Not on file Drug use: Not on file Sexual activity: Not on file Other Topics Concern Not on file Social History Narrative Not on file Social Determinants of Health Financial Resource Strain: Not on file Food Insecurity: Not on file Transportation Needs: Not on file Physical Activity: Not on file Intimate Partner Violence: Not At Risk (05/10/2024) IPV Inpatient Questions Prevent Contact with Others: no Feels Threatened by Someone: no Feels Unsafe at Home: no Physical Signs of Abuse Present: no Housing Stability: Not on file FAMILY HX: No family history on file. MEDICATIONS Medication list personally reviewed Home Meds: Medications Prior to Admission Medication Sig Dispense Refill Last Dose carvediloL (Coreg) 25 mg tablet Take 25 mg by mouth 2 times daily (with meals). 2024 liraglutide (VICTOZA) 0.6 mg/0.1 mL (18 mg/3 mL) Pen Injector Inject 1.2 mg subcutaneously daily. 2024 insulin lispro (HumaLOG) 100 unit/mL Insulin Pen Inject 8 Units subcutaneously 3 times daily (before meals). 2024 insulin glargine (Lantus) 100 unit/mL (3 mL) pen Inject 20 Units subcutaneously nightly. 05/08/2024 lisinopriL (Zestril) 5 mg tablet Take 5 mg by mouth daily. 2024 furosemide (LASIX) 20 mg Tablet Take 40 mg by mouth daily. 0 2024 DILT-XR 240 mg Capsule,Degradable Cnt Release Take 240 mg by mouth daily. 0 2024 XARELTO 15 mg Tablet Take 15 mg by mouth daily. 0 2024 multivitamin (THERAGRAN) Tablet Take 1 tablet by mouth daily. 2024 Magnesium 200 mg Tablet Take 400 mg by mouth daily. 2024 acetaminophen (TYLENOL) 650 mg Tablet Sustained Release Take 1,300 mg by mouth every 8 hours as needed for Pain. Do not exceed 6 tabs in 24 hours Unknown [DISCONTINUED] meTOPROLOL (LOPRESSOR) 100 mg Tablet Take 100 mg by mouth 2 times daily. 0 [DISCONTINUED] losartan (COZAAR) 50 mg Tablet Take 50 mg by mouth daily. 0 [DISCONTINUED] traMADol (ULTRAM) 50 mg Tablet Take 50 mg by mouth 4 times daily as needed. 0 Current Meds: Scheduled: pantoprazole 40 mg Intravenous BID furosemide 40 mg Oral QAM epoetin leah-epbx 10,000 Units Subcutaneous Daily insulin glargine (Lantus;Semglee) (100 unit/mL) subcutaneous injection 14 Units Subcutaneous Nightly lactobacillius capsule 1 capsule Oral Daily ipratropium-albuteroL 3 mL Nebulization Q4H insulin lispro 1-6 Units Subcutaneous Q4H VLAD cefTRIAXone 2 g Intravenous Q24H insulin lispro 0-8 Units Subcutaneous TID WC carvediloL 25 mg Oral BID dilTIAZem 60 mg Oral Q6H VLAD Drips: PRN: simethicone, ondansetron, oxyCODONE, melatonin, glucose 40% oral geL OR dextrose OR glucagon, acetaminophen Allergies: No Known Allergies OBJECTIVE Vitals: T Temp: [36.2 ??C (97.2 ??F)-36.6 ??C (97.9 ??F)] HR Heart Rate: [79-91] BP BP: (110-147)/(51-79) RR Resp: [14-27] SpO2 SpO2: [93 %-100 %] 05/20 07 - 05/21 07 In: 1777 [P.O.:1742; I.V.:35] Out: 2725 [Urine:2725] Wt Last (!) 158.8 kg (350 lb) Admit 159.8 kg Physical Exam: Gen: No acute distress, resting comfortably in bed. HEENT: PERRLA, EOMI, CV: Regular rate and rhythm Pulm: Normal respiratory effort. Abd: Soft, non-tender, non-distended. No guarding or rebound. Ext: No pedal edema. No gross abnormalities. Neuro: Cranially nerves intact. Moving all four extremities. AAOx3 Labs: Labs personally reviewed in e[facility] CBC: Recent Labs 05/21/24 1500 05/21/24 0827 05/21/24 0458 05/20/24 1235 05/20/24 0427 05/19/24 0511 05/18/24 0401 05/17/24 0549 WBC 14.25* 15.77* 14.49* 14.66* 15.20* 12.77* 9.84* 8.61 HGB 7.8* 7.5* 7.5* 8.4* 7.9* 9.3* 9.6* 10.5* PLATELET 456* 398* 388* 416* 403* 379* 335 341 MCV 93.9* 93.1 92.9 93.2* 94.8* 92.9 96.9* 95.8* RDWCV 16.1* 16.1* 16.0* 15.6* 15.8* 15.8* 15.7* 15.7* COAG: No results for input(s): PTT, INR, PT in the last 168 hours. CHEM: Recent Labs 05/21/24 0458 05/20/24 0427 05/19/24 0511 05/18/24 1704 05/18/24 0400 05/17/24 0549 05/16/24 0514 05/15/24 0512 CREATININE 3.04* 2.78* 2.75* 2.64* 2.69* 3.07* 2.88* 2.46* BUN 110* 121* 118* 116* 105* 86* 74* 58* NA 138 138 136 139 134* 134* 133* 135 K 5.1* 5.4* 5.2* 5.4* 5.6* 5.0 5.0 5.2* CL 111* 109* 108* 110* 107 103 101 100 CO2 18* 18* 18* 17* 11* 21* 21* 23 MAGNESIUM 0.99 0.99 1.08* -- 1.09* 1.14* 1.22* 1.21* CALCIUM 9.4 9.4 9.3 9.2 8.8 8.7 8.8 8.8 INFLAMM: Recent Labs 05/21/24 0458 CRP 14.1* IMAGING: Reports and images personally reviewed in [facility]. Images independently interpreted. IR Tunneled Central Venous Access Non-Dialysis Final Result US Retroperitoneal Complete Final Result 1. Very limited exam secondary to patient body habitus and overlying bowel gas. 2. No hydronephrosis on either side. Within the limitations of the exam, no stones seen. 3. Normal bladder contour. Estimated bladder volume at time of scan 446 cc. I have personally reviewed the image(s) and the resident's interpretation and agree with the findings, Teofilo Ruiz MD at 05/20/2024 11:30 AM Electronically signed by: Teofilo Ruiz MD, [facility] ([phone]), at 05/20/2024 11:30 AM Thank you for letting us participate in the care of this patient. If you are a health care provider and have any questions regarding this report, please contact the number above. For patients who have questions, please contact the health care connector that requested your imaging first. Teofilo Ruiz, Staff Physician Electronically Signed Final Report 05/20/2024 11:36 am MRI Foot wwo Contrast Right Final Result 1. Soft tissue irregularity of the tip of the 2nd toe is presumed to correspond to focal soft tissue injury or an open wound. Recommend correlation with physical examination. No rim-enhancing soft tissue abscess. [...] this report, please contact the number below. For patients who have questions please contact the health care connector that requested your imaging first. Electronically signed by: Trinidad Mota MD, [facility] ([phone]), at 05/10/2024 12:56 PM XR Chest One View Final Result Bibasilar atelectasis. Thank you for letting us participate in the care of this patient. If you are a health care provider and have any questions regarding this report, please contact the number below. For patients who have questions please contact the health care connector that requested your imaging first. SCOPY: Reports and images personally reviewed in [facility] OSH RECORDS: Obtained and personally reviewed ASSESSMENT & PLAN: 69 y.o. male with past medical history of PMH of HTN, HFpEF, CKD (bsl Cr ~1.5), IDDM, COPD (not on home O2), rate controlled Afib (Xarelto, dilt, coreg) admitted on 05/10/2024 now s/p 2nd toe amputation for osteo. GI consulted for possible GIB. Reports of some black stools however on my rectal exam stool appeared dark but smeared as brown and did not look like melena. However given his down trending hemoglobincan complete EGD as part of his anemia workup, although suspension is low for any significant source of bleeding that may require endoscopic treatment. Would recommend continuing PPI and treating H/H. NPO for EGD tomorrow. Recommendations: - IV PPI BID - trend H/H BID - NPO midnight - EGD tomorrow - hold rosalba Patient seen with Dr. Steele. Thank you for involving us in the care of this patient. Please call/page should any further questions arise. Guillermina Quiroga MD PGY-4, Gastroenterology Associated attestation - Tl Steele MD - 05/26/2024 1:36 AM EDT Attending Addendum: I have seen and examined the patient with Dr. Quiroga. We reviewed the medical record and pertinent studies and imaging. My evaluation and physical examination confirms the above findings. The assessment and plan were formulated in discussion with me at the time of the encounter and I agree with them as documented. Recent interval worsening of anemia. He is on anticoagulation but no dark stool at this time. Continue PPI therapy. EGD warranted given high risk history, need for anticoagulation and significant anemia. Tl Steele MD [facility] [place] [facility] * Plan of Care - Pretty Ramirez RN - 05/21/2024 3:37 AM EDT OUTCOME EVALUATION NOTE: OUTCOME SUMMARY: Pt is alert and oriented X 4. Pt is calm and cooperative, compliant with his fluidrestriction regiment. Dressing was changed today, a moderate amount of dry blood noted on the old dressing. Pt tolerated well. Vitals and blood sugar are stable. PLAN MOVING FORWARD: -wound care - pain control - fluid restriction - mobility improvement INDIVIDUALIZED FALL PREVENTION INTERVENTIONS: Patient-specific fall risk factors per assessment: [current deficits]: generalized weakness, impaired mobility, pain Assistance [level of assistance required for transfers and ambulation]: 2 person with walker Supervision [direct monitoring required during toileting and ADLs]: hands on help Surveillance [continuous indirect monitoring]: frequent rounding Patient-specific fall prevention interventions for sensory deficits provided, if applicable: CPG GOAL OUTCOME EVALUATION: Problem: Adult Inpatient Plan of Care Goal: Plan of Care Review Outcome: Ongoing (Interventions Implemented as Appropriate) Goal: Patient-Specific Goal (Individualized) Outcome: Ongoing (Interventions Implemented as Appropriate) Goal: Absence of Hospital-Acquired Illness or Injury Outcome: Ongoing (Interventions Implemented as Appropriate) Goal: Optimal Comfort and Wellbeing Outcome: Ongoing (Interventions Implemented as Appropriate) Goal: Readiness for Transition of Care Outcome: Ongoing (Interventions Implemented as Appropriate) Problem: Glycemic Control Impaired (Sepsis/Septic Shock) Goal: Blood Glucose Level Within Desired Range Outcome: Ongoing (Interventions Implemented as Appropriate) Problem: Infection Progression (Sepsis) Goal: Absence of Infection Signs and Symptoms Outcome: Ongoing (Interventions Implemented as Appropriate) Problem: Adjustment to Surgery (Extremity Amputation) Goal: Optimal Coping with Amputation Outcome: Ongoing (Interventions Implemented as Appropriate) Problem: Bleeding (Extremity Amputation) Goal: Absence of Bleeding Outcome: Ongoing (Interventions Implemented as Appropriate) Problem: Infection (Extremity Amputation) Goal: Absence of Infection Signs and Symptoms Outcome: Ongoing (Interventions Implemented as Appropriate) Problem: Pain (Extremity Amputation) Goal: Acceptable Pain Control Outcome: Ongoing (Interventions Implemented as Appropriate) * Plan of Care - Evelyn Prakash RN - 05/20/2024 7:21 PM EDT A&O, Denies chest pain and SOB, intermittent OROZCO improving with rest and nebulizer tx. No tele orders, on RA. Blood sugars covered per insulin protocol. Continues on IV abx per order, RLE extremity dressing CDI. Pain managed with PRN Tylenol and oxycodone. Patient OOB to chair with 3 assist andwalker this afternoon. Voiding CYU, RN provided education about importance of new fluid restriction, patient verbalized understanding. LBM 8/. Frequent checks, safety maintained, please see flowsheet for detailed assessment. Problem: Adult Inpatient Plan of Care Goal: Plan of Care Review Outcome: Ongoing (Interventions Implemented as Appropriate) Goal: Patient-Specific Goal (Individualized) Outcome: Ongoing (Interventions Implemented as Appropriate) Goal: Absence of Hospital-Acquired Illness or Injury Outcome: Ongoing (Interventions Implemented as Appropriate) Intervention: Identify and Manage Fall Risk Flowsheets (Taken 05/20/2024802) Safety Promotion/Fall Prevention: activity supervised assistive device/personal items within reach clutter free environment maintained fall prevention program maintained lighting adjusted mobility aid in reach nonskid shoes/slippers when out of bed room organization consistent safety round/check completed Intervention: Prevent Skin Injury Flowsheets (Taken 05/20/2024802) Body Position: up in chair Intervention: Prevent and Manage VTE (Venous Thromboembolism) Risk Flowsheets (Taken 05/20/2024802) VTE Prevention/Management: anticoagulant therapy SCDs on intermittently Intervention: Prevent Infection Flowsheets (Taken 05/20/2024802) Infection Prevention: environmental surveillance performed equipment surfaces disinfected hand hygiene promoted rest/sleep promoted Goal: Optimal Comfort and Wellbeing Outcome: Ongoing (Interventions Implemented as Appropriate) Intervention: Provide Person-Centered Care Flowsheets (Taken 05/20/2024802) Trust Relationship/Rapport: care explained choices provided emotional support provided empathic listening provided questions answered questions encouraged reassurance provided thoughts/feelings acknowledged Goal: Readiness for Transition of Care Outcome: Ongoing (Interventions Implemented as Appropriate) Problem: Glycemic Control Impaired (Sepsis/Septic Shock) Goal: Blood Glucose Level Within Desired Range Outcome: Ongoing (Interventions Implemented as Appropriate) Intervention: Optimize Glycemic Control Flowsheets (Taken 05/20/2024 1252) Glycemic Management: blood glucose monitored insulin dose matched to carbohydrate intake Problem: Infection Progression (Sepsis) Goal: Absence of Infection Signs and Symptoms Outcome: Ongoing (Interventions Implemented as Appropriate) Intervention: Initiate Sepsis Management Flowsheets (Taken 05/20/2024802) Infection Prevention: environmental surveillance performed equipment surfaces disinfected hand hygiene promoted rest/sleep promoted Infection Management: aseptic technique maintained Intervention: Promote Stabilization Flowsheets (Taken 05/20/2024802) Fever Reduction/Comfort Measures: lightweight clothing lightweight bedding Fluid/Electrolyte Management: fluids restricted Lung Protection Measures: (reached out to MD Galvan about concern for possible FVO) fluid excess minimized Intervention: Promote Recovery Flowsheets (Taken 05/20/2024802) Activity Management: ambulated, see distance below up in chair Airway/Ventilation Support: pulmonary hygiene promoted Sleep/Rest Enhancement: awakenings minimized relaxation techniques promoted consistent schedule promoted regular sleep/rest pattern promoted Problem: Fall Injury Risk Goal: Absence of Fall and Fall-Related Injury Outcome: Ongoing (Interventions Implemented as Appropriate) Intervention: Identify and Manage Contributors Flowsheets (Taken 05/20/2024802) Medication Review/Management: medications reviewed Self-Care Promotion: independence encouraged BADL personal objects within reach BADL personal routines maintained meal set-up provided safe use of adaptive equipment encouraged Intervention: Promote Injury-Free Environment Flowsheets (Taken 05/20/2024802) Safety Promotion/Fall Prevention: activity supervised assistive device/personal items within reach clutter free environment maintained fall prevention program maintained lighting adjusted mobility aid in reach nonskid shoes/slippers when out of bed room organization consistent safety round/check completed Problem: Adjustment to Surgery (Extremity Amputation) Goal: Optimal Coping with Amputation Outcome: Ongoing (Interventions Implemented as Appropriate) Intervention: Support Psychosocial Response Flowsheets (Taken 05/20/2024802) Supportive Measures: active listening utilized decision-making supported goal-setting facilitated positive reinforcement provided problem-solving facilitated relaxation techniques promoted self-care encouraged verbalization of feelings encouraged Family/Support System Care: self-care encouraged support provided Problem: Bleeding (Extremity Amputation) Goal: Absence of Bleeding Outcome: Ongoing (Interventions Implemented as Appropriate) Intervention: Monitor and Manage Bleeding Flowsheets (Taken 05/20/2024802) Bleeding Management: dressing monitored Problem: Infection (Extremity Amputation) Goal: Absence of Infection Signs and Symptoms Outcome: Ongoing (Interventions Implemented as Appropriate) Intervention: Prevent or Manage Infection Flowsheets (Taken 05/20/2024802) Fever Reduction/Comfort Measures: lightweight clothing lightweight bedding Infection Management: aseptic technique maintained Problem: Pain (Extremity Amputation) Goal: Acceptable Pain Control Outcome: Ongoing (Interventions Implemented as Appropriate) Intervention: Prevent or Manage Pain Flowsheets (Taken 05/20/2024802) Pain Management Interventions: rktmbe-wpt-apxlc dosing utilized breathing exercises care clustered diversional activity provided medication offered but refused pain management plan reviewed with patient/caregiver pillow support provided position adjusted prescribed exercises encouraged quiet environment facilitated relaxation techniques promoted Diversional Activities: television smartphone individual hobbies * Care Management - Shirley Samuel RN - 05/20/2024 10:12 AM EDT OFFICE OF CARE MANAGEMENT PROGRESS NOTE LOS: Hospital Day 10 days Chart reviewed, care reviewed with primary team and at interdisciplinary rounds. Patient continues to meet inpatient level of care related to: cellulitis, abx therapy, FISH. Decision Maker: Self Functional status prior to admission: Independent Home Environment: Others in the home: alone. Current Living Arrangements: other (see comments). Accessibility Concerns: . Current Functional Ability: Assistive Person DME used at home: none DME Needed at Discharge: No Patient is insured through: Primary Insurance: AARP MANAGED MEDICARE Payor: AARP MANAGED MEDICARE / Plan: AARP RPPO MANAGED MEDICARE COMPLETE / Product Type: *No Product type* / Secondary Insurance: N/A Last Physical Therapy Recommendation: swing bed rehabilitation facility, long term facility with to be determined Last Occupational Therapy Recommendation: long term facility, swing bed rehabilitation facility with to be determined Plan for discharge is: Senior Care Facility / Swing Outpatient Agency/Support Group Needs: Homecare agency OPAT Orders: ID Consult Ordered Location: Home Home Health Services: IV Therapy Agency Referrals: Based on discussions with the multi-disciplinary healthcare team, the patient would benefit from SNF level of care at discharge. I have met with the patient to: discuss discharge planning needs. provide the [facility], Office of Care Management letter from the [employer] pertaining to rehab referrals. provide a letter describing our affiliations within the [facility] and educate about their right to choose where referrals are sent. provide the CMS Star Quality Rating handout. review the different levels of rehab including SNF, swing, and acute. provide a list of facilities within their preferred geographic area. request that they provide at least three choices for referral. They have requested referrals to: [facility] ([place] [address] [place] [address] [facility] [address] [place] [id number] -OFFERED BED, PENDING INSURANCE AUTHORIZATION 05/20 [address] [facility] [address] [place] [address] [facility] [address] [place] [address] [facility] ([facility] [address] [place] [address] (Accepts pts only after exhausting all other local SNF options) Does patient have COVID vaccine card: Yes; Copy obtained: No Note routed to a Setter Out who will communicate referrals to facilities and provide any required information. Transportation: family or friend will provide Barriers to discharge: Discharge planning Plan going forward: Referrals routed for SNF/Swing. Care Management will continue to follow and assist with discharge planning and coordination of care as indicated. Anticipated Date of Discharge: 05/21/2024 Shirley Samuel RN CM Associate Music Professor- Medicine Office of Care Management Ext: [phone] Pager: [phone] * Plan of Care - Pretty Ramirez RN - 05/20/2024 5:36 AM EDT OUTCOME EVALUATION NOTE: OUTCOME SUMMARY: Pt is alert and oriented X 4. Pt reports no pain. Dressing looks good, dry and intact. Blood sugar and blood pressure improved. Pt had a big liquid black BM this morning. Pt is not able to ambulate yet, needs more PT. PLAN MOVING FORWARD: Wound care Pain management Blood sugar management INDIVIDUALIZED FALL PREVENTION INTERVENTIONS: Patient-specific fall risk factors per assessment: [current deficits]: Generalized weakness Assistance [level of assistance required for transfers and ambulation]: Total assistance Supervision [direct monitoring required during toileting and ADLs]: @ people hands on help required Surveillance [continuous indirect monitoring]: frequent rounding Patient-specific fall prevention interventions for sensory deficits provided, if applicable: CPG GOAL OUTCOME EVALUATION: Problem: Adult Inpatient Plan of Care Goal: Plan of Care Review Outcome: Ongoing (Interventions Implemented as Appropriate) Goal: Patient-Specific Goal (Individualized) Outcome: Ongoing (Interventions Implemented as Appropriate) Goal: Absence of Hospital-Acquired Illness or Injury Outcome: Ongoing (Interventions Implemented as Appropriate) Goal: Optimal Comfort and Wellbeing Outcome: Ongoing (Interventions Implemented as Appropriate) Goal: Readiness for Transition of Care Outcome: Ongoing (Interventions Implemented as Appropriate) Problem: Glycemic Control Impaired (Sepsis/Septic Shock) Goal: Blood Glucose Level Within Desired Range Outcome: Ongoing (Interventions Implemented as Appropriate) Problem: Infection Progression (Sepsis) Goal: Absence of Infection Signs and Symptoms Outcome: Ongoing (Interventions Implemented as Appropriate) Problem: Fall Injury Risk Goal: Absence of Fall and Fall-Related Injury Outcome: Ongoing (Interventions Implemented as Appropriate) Problem: Adjustment to Surgery (Extremity Amputation) Goal: Optimal Coping with Amputation Outcome: Ongoing (Interventions Implemented as Appropriate) Problem: Bleeding (Extremity Amputation) Goal: Absence of Bleeding Outcome: Ongoing (Interventions Implemented as Appropriate) Problem: Infection (Extremity Amputation) Goal: Absence of Infection Signs and Symptoms Outcome: Ongoing (Interventions Implemented as Appropriate) Problem: Infection (Extremity Amputation) Goal: Absence of Infection Signs and Symptoms Outcome: Ongoing (Interventions Implemented as Appropriate) Problem: Pain (Extremity Amputation) Goal: Acceptable Pain Control Outcome: Ongoing (Interventions Implemented as Appropriate) * Plan of Care - Michelle Tovar RN - 05/19/2024 7:33 PM EDT OUTCOME EVALUATION NOTE: OUTCOME SUMMARY: Pt remains A x O x 4, cooperative with care, maintaining sats on room air, duonebs administered as scheduled, denies shortness of breath,noted to have dry nonproductive cough. Incontinent of bowels last BM today prior shift, soap and water precautions discontinued, voiding adequate amounts of urineusing urinal. Worked with PT/OT, offloading boot while OOB, ceiling lift to chair. Dressing to R foot c/d/I, edema to BLE, pulses palpable. Family in to visit pt. No acute events this shift. PLAN MOVING FORWARD: Pain control Glycemic control Mobilize pt INDIVIDUALIZED FALL PREVENTION INTERVENTIONS: Patient-specific fall risk factors per assessment: [current deficits]: Recent surgery, unfamiliar environment, limited mobility Assistance [level of assistance required for transfers and ambulation]: Max assist Supervision [direct monitoring required during toileting and ADLs]: Eyes on Surveillance [continuous indirect monitoring]: Masimo Patient-specific fall prevention interventions for sensory deficits provided, if applicable: [X] Yes CARE PLAN GOAL OUTCOME EVALUATION: Problem: Adult Inpatient Plan of Care Goal: Plan of Care Review Outcome: Ongoing (Interventions Implemented as Appropriate) Goal: Patient-Specific Goal (Individualized) Outcome: Ongoing (Interventions Implemented as Appropriate) Goal: Absence of Hospital-Acquired Illness or Injury Outcome: Ongoing (Interventions Implemented as Appropriate) Goal: Optimal Comfort and Wellbeing Outcome: Ongoing (Interventions Implemented as Appropriate) Goal: Readiness for Transition of Care Outcome: Ongoing (Interventions Implemented as Appropriate) Problem: Glycemic Control Impaired (Sepsis/Septic Shock) Goal: Blood Glucose Level Within Desired Range Outcome: Ongoing (Interventions Implemented as Appropriate) Problem: Infection Progression (Sepsis) Goal: Absence of Infection Signs and Symptoms Outcome: Ongoing (Interventions Implemented as Appropriate) Problem: Fall Injury Risk Goal: Absence of Fall and Fall-Related Injury Outcome: Ongoing (Interventions Implemented as Appropriate) Problem: Adjustment to Surgery (Extremity Amputation) Goal: Optimal Coping with Amputation Outcome: Ongoing (Interventions Implemented as Appropriate) Problem: Bleeding (Extremity Amputation) Goal: Absence of Bleeding Outcome: Ongoing (Interventions Implemented as Appropriate) Problem: Infection (Extremity Amputation) Goal: Absence of Infection Signs and Symptoms Outcome: Ongoing (Interventions Implemented as Appropriate) Problem: Pain (Extremity Amputation) Goal: Acceptable Pain Control Outcome: Ongoing (Interventions Implemented as Appropriate) * Consult Note - Tho Gay MD - 05/19/2024 3:24 PM EDT Images from the original note were not included. Consult Note Nephrology 05/19/2024 03:24 PM Asked to see patient for acute on chronic renal insufficiency. Patient is a 69-year-old man who was admitted on on 2024 for right lower extremity cellulitis and right foot wound. He was in septic shock at his time of transfer to [facility]. Creatinine on admission was 3.94 mg/dL, he had a baseline creatinine of 1.9 mg/dL in 2019 but no other recent ones were found in the chart. The patient has a number of comorbidities including hypertension, diabetes, HFpEF, COPD, atrial fibrillation, chronic stasis dermatitis and infections of his lower extremities. The patient have gram-positive cocci infection and was treated with Vanco and Zosyn initially. hyperkalemic initially. 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 Blood cultures were no growth and he was maintained on Vanco and ceftriaxone. Vanco levels at times were in the high 20s. He has had a good urine output throughout. Creatinine has waxed and waned since his admission to the ICU. Most recently has been in the 2.6-2.7 range. The team is concerned about the rising BUN up to 118. The patient was n.p.o. on several occasions for his surgery. He is only recently consistently started to eat significant amounts of protein. He had a positive stool guaiac but no nieves bleeding with bright red or black stools. He had a very brief exposure to steroids but has not been on them recently. He believes he is drinking adequately at the present time. Past Surgical History: Procedure Laterality Date PRO AMPUTATION METATARSAL+TOE, SINGLE Right 05/14/2024 AMPUTATION, TRANSMETATARSAL TOE, ONE TOE (WRVU 6.64) performed by Elkin Garcia MD at [facility] MA[facility] OR insulin glargine-ygfn (Semglee) (100 unit/mL) subcutaneous injection vial 14 Units lactobacillus acidophilus capsule 1 capsule ipratropium-albuteroL (Duoneb) 0.5 mg-3 mg(2.5 mg base)/3 mL nebulizer solution 3 mL POCT Fingerstick Glucose AND insulin lispro (HumaLOG;Admelog) (100 unit/mL) subcutaneous injection vial 1-6 Units rivaroxaban (Xarelto) tablet 15 mg simethicone (Gas-X Chew) 80 mg chewable tablet 80 mg ondansetron (pf) (Zofran) (2 mg/mL) injection 4 mg oxyCODONE (Roxicodone) tablet 5 mg cefTRIAXone (Rocephin) 2 g vial attach to sodium chloride 0.9% 50 mL Mini-Bag Plus insulin lispro (HumaLOG;Admelog) (100 unit/mL) subcutaneous injection vial 0-8 Units carvediloL (Coreg) tablet 25 mg melatonin tablet 6 mg glucose (Glutose) 40% oral geL OR dextrose 10% infusion OR glucagon (Glucagen) (1 mg/mL) injection solution 1 mg acetaminophen (Tylenol) tablet 975 mg dilTIAZem (Cardizem) tablet 60 mg BP 130/64 (BP Location (NBP): Right arm, Patient Position: Lying) Pulse 79 Temp 36.4 ??C (97.5 ??F) (Oral) Resp 18 Ht 190.5 cm (6' 3) Wt (!) 157.5 kg (347 lb 3.6 oz) SpO2 96% BMI 43.40kg/m?? Pleasant obese man in NAD, skin with severe stasis ulceration of lower extremities, lungs with wheezes, cor distant, abdomen obese and nontender, neuro intact. No signs of dehydration. Assessment and plan: Patient has acute on chronic renal insufficiency. On admission he was hypotensive and had a septic physiology. His creatinine improved initially and readings post ICU were most likely complicated by IV hydration etc. At the present time his creatinine appears to have stabilized. We do not have a good recent baseline but we know that his creatinine was 1.9 in 2019. It would bereasonable to assume that he is in the 2.5-3.5 range for baseline now. It is also important to recognize that at this level of creatinine, the curve for EGFR is much steeper and therefore minor changes in EGFR from day today with states of hydration etc. will cause the creatinine to oscillate around its baseline. In this regard I think we have to look at the overall trend over days rather than respond to individual increases in creatinine. He had fairly high vancomycin levels along with Zosyn which is nephrotoxic. He may have lost more of his intrinsic renal function due to this presentation. At the present time he appears hemodynamically stable and he has no uremic signs or symptoms. The increase in BUN is likely related to tissue catabolism from his severe stasis dermatitis, increasing protein in his diet, and perhaps mild GI bleeding. BUN by itself is not toxic and I would not look at this is an indication for dialysis. It would be helpful to have some renal imaging in this regard would order a renal ultrasound. Please checkparathyroid hormone level. His phosphate is slightly high and he should be on a low phosphate diet.His hemoglobin is slightly low at 9.3 and I will check iron studies. I would hold off on starting erythropoietin therapy until we have the results of this. The patient has not been followed by nephrology and this should be arranged postdischarge. Over 80 minutes were spent reviewing data, examining and interviewing the patient and providing documentation. * Plan of Care - Pretty Ramirez RN - 05/19/2024 6:01 AM EDT OUTCOME EVALUATION NOTE: OUTCOME SUMMARY: Pt is alert and oriented X 4. Pt had a small BM tonight. Pt is negative for C-diffand removed from precautions this morning. Blood sugars remain elevated. Pt reports no pain most ofthe time required pain medication X 1. Pt is SOB on extortion. PLAN MOVING FORWARD: Nebs q 4 hours Blood sugars monitoring q 4 hours. IV antibiotics Dressing changes INDIVIDUALIZED FALL PREVENTION INTERVENTIONS: Patient-specific fall risk factors per assessment: [current deficits]: Post operation, overweight, generalized weakness Assistance [level of assistance required for transfers and ambulation]: 2 people with a walker Supervision [direct monitoring required during toileting and ADLs]: hands on Surveillance [continuous indirect monitoring]: frequent rounds Patient-specific fall prevention interventions for sensory deficits provided, if applicable: CPG GOAL OUTCOME EVALUATION: Problem: Adult Inpatient Plan of Care Goal: Plan of Care Review Outcome: Ongoing (Interventions Implemented as Appropriate) Goal: Patient-Specific Goal (Individualized) Outcome: Ongoing (Interventions Implemented as Appropriate) Goal: Absence of Hospital-Acquired Illness or Injury Outcome: Ongoing (Interventions Implemented as Appropriate) Goal: Optimal Comfort and Wellbeing Outcome: Ongoing (Interventions Implemented as Appropriate) Goal: Readiness for Transition of Care Outcome: Ongoing (Interventions Implemented as Appropriate) Problem: Glycemic Control Impaired (Sepsis/Septic Shock) Goal: Blood Glucose Level Within Desired Range Outcome: Ongoing (Interventions Implemented as Appropriate) Problem: Infection Progression (Sepsis) Goal: Absence of Infection Signs and Symptoms Outcome: Ongoing (Interventions Implemented as Appropriate) Problem: Fall Injury Risk Goal: Absence of Fall and Fall-Related Injury Outcome: Ongoing (Interventions Implemented as Appropriate) Problem: Adjustment to Surgery (Extremity Amputation) Goal: Optimal Coping with Amputation Outcome: Ongoing (Interventions Implemented as Appropriate) Problem: Bleeding (Extremity Amputation) Goal: Absence of Bleeding Outcome: Ongoing (Interventions Implemented as Appropriate) Problem: Infection (Extremity Amputation) Goal: Absence of Infection Signs and Symptoms Outcome: Ongoing (Interventions Implemented as Appropriate) Problem: Pain (Extremity Amputation) Goal: Acceptable Pain Control Outcome: Ongoing (Interventions Implemented as Appropriate) * Plan of Care - Evelyn Prakash RN - 05/18/2024 7:39 PM EDT A&O, Denies chest pain and SOB, intermittent OROZCO improving with rest and nebulizer tx. No tele orders, on RA. Blood sugars covered per insulin protocol. Continues on IV abx per order, RLE extremity dressing CDI. Pain managed with PRN Tylenol and oxycodone. Q2 hr T&R. Voiding CYU, LBM 05/18, incontinence care provided. Stool occult test completed this shift, positive result, MD notified. C-diff sample collected and sent to lab. Contact precautions initiated this AM per protocol. Frequent checks, safety maintained, please see flowsheet for detailed assessment. Problem: Adult Inpatient Plan of Care Goal: Plan of Care Review Outcome: Ongoing (Interventions Implemented as Appropriate) Goal: Patient-Specific Goal (Individualized) Outcome: Ongoing (Interventions Implemented as Appropriate) Goal: Absence of Hospital-Acquired Illness or Injury Outcome: Ongoing (Interventions Implemented as Appropriate) Intervention: Identify and Manage Fall Risk Flowsheets (Taken 05/18/2024837) Safety Promotion/Fall Prevention: activity supervised assistive device/personal items within reach clutter free environment maintained fall prevention program maintained mobility aid in reach nonskid shoes/slippers when out of bed safety round/check completed room organization consistent Intervention: Prevent Skin Injury Flowsheets (Taken 05/18/2024837) Body Position: sitting up in bed Intervention: Prevent and Manage VTE (Venous Thromboembolism) Risk Flowsheets (Taken 05/18/2024837) VTE Prevention/Management: anticoagulant therapy SCDs on intermittently Intervention: Prevent Infection Flowsheets (Taken 05/18/2024837) Infection Prevention: rest/sleep promoted hand hygiene promoted personal protective equipment utilized equipment surfaces disinfected environmental surveillance performed Goal: Optimal Comfort and Wellbeing Outcome: Ongoing (Interventions Implemented as Appropriate) Intervention: Provide Person-Centered Care Flowsheets (Taken 05/18/2024837) Trust Relationship/Rapport: choices provided care explained emotional support provided empathic listening provided reassurance provided questions encouraged questions answered thoughts/feelings acknowledged Goal: Readiness for Transition of Care Outcome: Ongoing (Interventions Implemented as Appropriate) Problem: Glycemic Control Impaired (Sepsis/Septic Shock) Goal: Blood Glucose Level Within Desired Range Outcome: Ongoing (Interventions Implemented as Appropriate) Intervention: Optimize Glycemic Control Flowsheets (Taken 05/18/2024837) Glycemic Management: blood glucose monitored insulin dose matched to carbohydrate intake Problem: Infection Progression (Sepsis) Goal: Absence of Infection Signs and Symptoms Outcome: Ongoing (Interventions Implemented as Appropriate) Intervention: Initiate Sepsis Management Flowsheets Taken 05/18/2024837 Infection Prevention: rest/sleep promoted hand hygiene promoted personal protective equipment utilized equipment surfaces disinfected environmental surveillance performed Isolation Precautions: contact precautions initiated Taken 05/17/2024899 Infection Management: aseptic technique maintained Intervention: Promote Stabilization Flowsheets (Taken 05/18/2024837) Fever Reduction/Comfort Measures: lightweight bedding lightweight clothing Fluid/Electrolyte Management: fluids provided Intervention: Promote Recovery Flowsheets (Taken 05/18/2024837) Activity Management: dorsiflexion/plantar flexion performed Sleep/Rest Enhancement: awakenings minimized consistent schedule promoted natural light exposure provided relaxation techniques promoted Problem: Fall Injury Risk Goal: Absence of Fall and Fall-Related Injury Outcome: Ongoing (Interventions Implemented as Appropriate) Intervention: Identify and Manage Contributors Flowsheets (Taken 05/18/2024837) Medication Review/Management: medications reviewed Self-Care Promotion: independence encouraged BADL personal objects within reach BADL personal routines maintained meal set-up provided Intervention: Promote Injury-Free Environment Flowsheets (Taken 05/18/2024837) Safety Promotion/Fall Prevention: activity supervised assistive device/personal items within reach clutter free environment maintained fall prevention program maintained mobility aid in reach nonskid shoes/slippers when out of bed safety round/check completed room organization consistent Problem: Adjustment to Surgery (Extremity Amputation) Goal: Optimal Coping with Amputation Outcome: Ongoing (Interventions Implemented as Appropriate) Intervention: Support Psychosocial Response Flowsheets (Taken 05/18/2024837) Supportive Measures: decision-making supported active listening utilized positive reinforcement provided relaxation techniques promoted self-care encouraged verbalization of feelings encouraged Family/Support System Care: support provided self-care encouraged Problem: Bleeding (Extremity Amputation) Goal: Absence of Bleeding Outcome: Ongoing (Interventions Implemented as Appropriate) Intervention: Monitor and Manage Bleeding Flowsheets (Taken 05/18/2024837) Bleeding Management: dressing monitored Problem: Infection (Extremity Amputation) Goal: Absence of Infection Signs and Symptoms Outcome: Ongoing (Interventions Implemented as Appropriate) Intervention: Prevent or Manage Infection Flowsheets Taken 05/18/2024 0838 Fever Reduction/Comfort Measures: lightweight bedding lightweight clothing Taken 05/17/2024 0900 Infection Management: aseptic technique maintained Problem: Pain (Extremity Amputation) Goal: Acceptable Pain Control Outcome: Ongoing (Interventions Implemented as Appropriate) Intervention: Prevent or Manage Pain Flowsheets (Taken 05/18/2024 0838) Pain Management Interventions: [id number] dosing utilized care clustered diversional activity provided medication offered but refused pain management plan reviewed with patient/caregiver quiet environment facilitated relaxation techniques promoted Diversional Activities: television * Plan of Care - Christine Ronquillo RN - 05/18/2024 6:30 AM EDT Problem: Adult Inpatient Plan of Care Goal: Optimal Comfort and Wellbeing Outcome: Ongoing (Interventions Implemented as Appropriate) Goal: Readiness for Transition of Care Outcome: Ongoing (Interventions Implemented as Appropriate) Problem: Infection Progression (Sepsis) Goal: Absence of Infection Signs and Symptoms Outcome: Ongoing (Interventions Implemented as Appropriate) Problem: Adjustment to Surgery (Extremity Amputation) Goal: Optimal Coping with Amputation Outcome: Ongoing (Interventions Implemented as Appropriate) Problem: Bleeding (Extremity Amputation) Goal: Absence of Bleeding Outcome: Ongoing (Interventions Implemented as Appropriate) Problem: Pain (Extremity Amputation) Goal: Acceptable Pain Control Outcome: Ongoing (Interventions Implemented as Appropriate) * Plan of Care - Evelyn Prakash RN - 05/17/2024 7:51 PM EDT A&O, Denies chest pain and SOB, intermittent OROZCO improving with rest. Patient on 2L NC at startof shift, expiratory wheezing noted, PRN nebulizer given with effect, RN able to wean to RA this afternoon. No tele orders. Blood sugars covered per insulin protocol. Continues on IV abx per order, RLE extremity dressing changed this shift per order. Incisional site well approximated, stiches intact. Pain managed with PRN Tylenol. Q2 hr T&R. Voiding CYU, LBM 05/17, incontinence care provided. Frequent checks, safety maintained, please see flowsheet for detailed assessment. Problem: Adult Inpatient Plan of Care Goal: Plan of Care Review Outcome: Ongoing (Interventions Implemented as Appropriate) Goal: Patient-Specific Goal (Individualized) Outcome: Ongoing (Interventions Implemented as Appropriate) Goal: Absence of Hospital-Acquired Illness or Injury Outcome: Ongoing (Interventions Implemented as Appropriate) Intervention: Identify and Manage Fall Risk Flowsheets (Taken 05/17/2024899) Safety Promotion/Fall Prevention: activity supervised assistive device/personal items within reach clutter free environment maintained fall prevention program maintained lighting adjusted mobility aid in reach nonskid shoes/slippers when out of bed room organization consistent safety round/check completed Intervention: Prevent Skin Injury Flowsheets (Taken 05/17/2024899) Body Position: semi-fowlers Intervention: Prevent and Manage VTE (Venous Thromboembolism) Risk Flowsheets (Taken 05/17/2024899) VTE Prevention/Management: anticoagulant therapy SCDs on intermittently Intervention: Prevent Infection Flowsheets (Taken 05/17/2024899) Infection Prevention: hand hygiene promoted environmental surveillance performed equipment surfaces disinfected rest/sleep promoted Goal: Optimal Comfort and Wellbeing Outcome: Ongoing (Interventions Implemented as Appropriate) Intervention: Provide Person-Centered Care Flowsheets (Taken 05/17/2024899) Trust Relationship/Rapport: reassurance provided questions encouraged questions answered empathic listening provided emotional support provided choices provided care explained thoughts/feelings acknowledged Goal: Readiness for Transition of Care Outcome: Ongoing (Interventions Implemented as Appropriate) Problem: Glycemic Control Impaired (Sepsis/Septic Shock) Goal: Blood Glucose Level Within Desired Range Outcome: Ongoing (Interventions Implemented as Appropriate) Intervention: Optimize Glycemic Control Flowsheets (Taken 05/17/2024899) Glycemic Management: blood glucose monitored insulin dose matched to carbohydrate intake Problem: Infection Progression (Sepsis) Goal: Absence of Infection Signs and Symptoms Outcome: Ongoing (Interventions Implemented as Appropriate) Intervention: Initiate Sepsis Management Flowsheets (Taken 05/17/2024899) Infection Prevention: hand hygiene promoted environmental surveillance performed equipment surfaces disinfected rest/sleep promoted Infection Management: aseptic technique maintained Intervention: Promote Stabilization Flowsheets (Taken 05/17/2024899) Fever Reduction/Comfort Measures: lightweight bedding lightweight clothing pain meds offered, patient refused Fluid/Electrolyte Management: fluids provided Intervention: Promote Recovery Flowsheets (Taken 05/17/2024899) Activity Management: dorsiflexion/plantar flexion performed Airway/Ventilation Support: pulmonary hygiene promoted Sleep/Rest Enhancement: consistent schedule promoted natural light exposure provided noise level reduced regular sleep/rest pattern promoted relaxation techniques promoted Problem: Fall Injury Risk Goal: Absence of Fall and Fall-Related Injury Outcome: Ongoing (Interventions Implemented as Appropriate) Intervention: Identify and Manage Contributors Flowsheets (Taken 05/17/2024899) Medication Review/Management: medications reviewed Self-Care Promotion: independence encouraged BADL personal objects within reach BADL personal routines maintained meal set-up provided safe use of adaptive equipment encouraged Intervention: Promote Injury-Free Environment Flowsheets (Taken 05/17/2024899) Safety Promotion/Fall Prevention: activity supervised assistive device/personal items within reach clutter free environment maintained fall prevention program maintained lighting adjusted mobility aid in reach nonskid shoes/slippers when out of bed room organization consistent safety round/check completed Problem: Adjustment to Surgery (Extremity Amputation) Goal: Optimal Coping with Amputation Outcome: Ongoing (Interventions Implemented as Appropriate) Intervention: Support Psychosocial Response Flowsheets (Taken 05/17/20241947) Supportive Measures: active listening utilized decision-making supported goal-setting facilitated positive reinforcement provided verbalization of feelings encouraged self-care encouraged relaxation techniques promoted Problem: Bleeding (Extremity Amputation) Goal: Absence of Bleeding Outcome: Ongoing (Interventions Implemented as Appropriate) Intervention: Monitor and Manage Bleeding Flowsheets (Taken 05/17/2024899) Bleeding Management: dressing monitored Problem: Infection (Extremity Amputation) Goal: Absence of Infection Signs and Symptoms Outcome: Ongoing (Interventions Implemented as Appropriate) Intervention: Prevent or Manage Infection Flowsheets (Taken 05/17/2024899) Fever Reduction/Comfort Measures: lightweight bedding lightweight clothing pain meds offered, patient refused Infection Management: aseptic technique maintained Problem: Pain (Extremity Amputation) Goal: Acceptable Pain Control Outcome: Ongoing (Interventions Implemented as Appropriate) Intervention: Prevent or Manage Pain Flowsheets Taken 05/17/2024899 Diversional Activities: smartphone television Taken 05/15/2024 1825 Pain Management Interventions: [id number] dosing utilized position adjusted pillow support provided relaxation techniques promoted * Plan of Care - Christine Ronquillo RN - 05/17/2024 3:20 AM EDT Problem: Adult Inpatient Plan of Care Goal: Optimal Comfort and Wellbeing Outcome: Ongoing (Interventions Implemented as Appropriate) Goal: Readiness for Transition of Care Outcome: Ongoing (Interventions Implemented as Appropriate) Problem: Glycemic Control Impaired (Sepsis/Septic Shock) Goal: Blood Glucose Level Within Desired Range Outcome: Ongoing (Interventions Implemented as Appropriate) Problem: Fall Injury Risk Goal: Absence of Fall and Fall-Related Injury Outcome: Ongoing (Interventions Implemented as Appropriate) Problem: Bleeding (Extremity Amputation) Goal: Absence of Bleeding Outcome: Ongoing (Interventions Implemented as Appropriate) Problem: Infection (Extremity Amputation) Goal: Absence of Infection Signs and Symptoms Outcome: Ongoing (Interventions Implemented as Appropriate) Problem: Pain (Extremity Amputation) Goal: Acceptable Pain Control Outcome: Ongoing (Interventions Implemented as Appropriate) * Plan of Care - Evelyn Prakash RN - 05/16/2024 7:52 PM EDT A&O, Denies chest pain and SOB, intermittent OROZCO improving with rest. Patient on 2L NC at startof shift, expiratory wheezing noted, PRN nebulizer given with effect, RN able to wean to RA this afternoon. No tele orders. Blood sugars covered per insulin protocol. Continues on IV abx per order, RLE extremity dressing CDI. Incisional pain managed with PRN Tylenol. Q2 hr T&R, patient worked with PT this afternoon. Voiding CYU, LBM 05/16, incontinence care provided. Frequent checks, safety maintained, please see flowsheet for detailed assessment. Problem: Adult Inpatient Plan of Care Goal: Plan of Care Review Outcome: Ongoing (Interventions Implemented as Appropriate) Goal: Patient-Specific Goal (Individualized) Outcome: Ongoing (Interventions Implemented as Appropriate) Goal: Absence of Hospital-Acquired Illness or Injury Outcome: Ongoing (Interventions Implemented as Appropriate) Intervention: Identify and Manage Fall Risk Flowsheets (Taken 05/16/2024 6181) Safety Promotion/Fall Prevention: activity supervised clutter free environment maintained assistive device/personal items within reach fall prevention program maintained lighting adjusted mobility aid in reach nonskid shoes/slippers when out of bed room organization consistent safety round/check completed Intervention: Prevent Skin Injury Flowsheets (Taken 05/16/2024851) Body Position: semi-fowlers foot of bed elevated heels elevated legs elevated log-rolled Intervention: Prevent and Manage VTE (Venous Thromboembolism) Risk Flowsheets (Taken 05/16/2024 08) VTE Prevention/Management: anticoagulant therapy SCDs on intermittently Intervention: Prevent Infection Flowsheets (Taken 05/16/2024851) Infection Prevention: hand hygiene promoted equipment surfaces disinfected environmental surveillance performed rest/sleep promoted Goal: Optimal Comfort and Wellbeing Outcome: Ongoing (Interventions Implemented as Appropriate) Intervention: Provide Person-Centered Care Flowsheets (Taken 05/16/2024851) Trust Relationship/Rapport: care explained choices provided emotional support provided questions answered questions encouraged reassurance provided thoughts/feelings acknowledged Goal: Readiness for Transition of Care Outcome: Ongoing (Interventions Implemented as Appropriate) Problem: Glycemic Control Impaired (Sepsis/Septic Shock) Goal: Blood Glucose Level Within Desired Range Outcome: Ongoing (Interventions Implemented as Appropriate) Intervention: Optimize Glycemic Control Flowsheets (Taken 05/16/2024851) Glycemic Management: blood glucose monitored supplemental insulin given Problem: Infection Progression (Sepsis) Goal: Absence of Infection Signs and Symptoms Outcome: Ongoing (Interventions Implemented as Appropriate) Intervention: Initiate Sepsis Management Flowsheets Taken 05/16/202452 Infection Prevention: hand hygiene promoted equipment surfaces disinfected environmental surveillance performed rest/sleep promoted Taken 05/15/2024 0737 Infection Management: aseptic technique maintained Intervention: Promote Stabilization Flowsheets Taken 05/16/2024 1837 Fever Reduction/Comfort Measures: lightweight bedding lightweight clothing Taken 05/16/202452 Fluid/Electrolyte Management: fluids provided Intervention: Promote Recovery Flowsheets (Taken 05/16/2024851) Activity Management: dorsiflexion/plantar flexion performed Airway/Ventilation Support: dyspnea relief promoted pulmonary hygiene promoted Sleep/Rest Enhancement: consistent schedule promoted awakenings minimized family presence promoted natural light exposure provided relaxation techniques promoted Problem: Fall Injury Risk Goal: Absence of Fall and Fall-Related Injury Outcome: Ongoing (Interventions Implemented as Appropriate) Intervention: Identify and Manage Contributors Flowsheets (Taken 05/16/2024851) Medication Review/Management: medications reviewed Self-Care Promotion: BADL personal objects within reach BADL personal routines maintained independence encouraged meal set-up provided Intervention: Promote Injury-Free Environment Flowsheets (Taken 05/16/2024 0852) Safety Promotion/Fall Prevention: activity supervised clutter free environment maintained assistive device/personal items within reach fall prevention program maintained lighting adjusted mobility aid in reach nonskid shoes/slippers when out of bed room organization consistent safety round/check completed Problem: Adjustment to Surgery (Extremity Amputation) Goal: Optimal Coping with Amputation Outcome: Ongoing (Interventions Implemented as Appropriate) Intervention: Support Psychosocial Response Flowsheets Taken 05/16/2024 1837 Family/Support System Care: self-care encouraged presence promoted support provided Taken 05/16/2024 0852 Supportive Measures: active listening utilized decision-making supported goal-setting facilitated positive reinforcement provided relaxation techniques promoted self-care encouraged verbalization of feelings encouraged Problem: Bleeding (Extremity Amputation) Goal: Absence of Bleeding Outcome: Ongoing (Interventions Implemented as Appropriate) Intervention: Monitor and Manage Bleeding Flowsheets (Taken 05/16/2024 0852) Bleeding Management: dressing monitored Problem: Infection (Extremity Amputation) Goal: Absence of Infection Signs and Symptoms Outcome: Ongoing (Interventions Implemented as Appropriate) Intervention: Prevent or Manage Infection Flowsheets Taken 05/16/2024 1837 Fever Reduction/Comfort Measures: lightweight bedding lightweight clothing Taken 05/15/2024 0737 Infection Management: aseptic technique maintained Problem: Pain (Extremity Amputation) Goal: Acceptable Pain Control Outcome: Ongoing (Interventions Implemented as Appropriate) Intervention: Prevent or Manage Pain Flowsheets Taken 05/16/2024 0852 Diversional Activities: television smartphone Taken 05/15/2024 1825 Pain Management Interventions: agxeep-nta-[id number] dosing utilized position adjusted pillow support provided relaxation techniques promoted * Initial Assessments - Penny Rodriguez OT - 05/16/2024 2:00 PM EDT Images from the original note were not included. Occupational Therapy Evaluation Patient profile: Jossy Shanks is a 69 y.o. year old male with past medical history of HTN,HFpEF, CKD (bsl Cr ~1.5), IDDM, COPD (not on home O2), rate controlled Afib (Xarelto, dilt, coreg) admitted on 05/10/2024 ( Hospital Day 6 days ) for LE cellulitis 2/2 right foot trauma . Overall doing well, orthopedics was consulted in the MICU with concern for bone involvement. MRI w soft tissue irregularity of 2nd toe with osteitis in the distal tuft of 2nd toe. 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 Past Surgical History: Procedure Laterality Date PRO AMPUTATION METATARSAL+TOE, SINGLE Right 05/14/2024 AMPUTATION, TRANSMETATARSAL TOE, ONE TOE (WRVU 6.64) performed by Elkin Garcia MD at [facility] OR Active Non-Hospital Problems Diagnosis Degenerative lumbar spinal stenosis Social History: Patient lives alone in apartment. Home Setup: 4 DINH with left railing into one level place. Bathroom has a walk in shower. Sleeps in a recliner chair. DME: Patient reports crutches, hiking stick, and cane available at home. Baseline ADL/Mobility: Patient reports independence with ADLs/IADLs prior. Patient was driving before admission. Uses a hiking stick for mobility. Precautions/Special Considerations: Full code, AAT, carb controlled diet Weight bearing status UNTIL DISCONTINUED Discontinue Process Instructions: If individualized per extremity weight restrictions are being indicated, please complete a NEW order for EACH extremity. Question Answer Comment Weight bearing of: Custom Custom: WBAT in forefoot offloader shoe Extremity / Laterality: LOWER RIGHT extremity Subjective: I haven't been out of bed for six days Objective: Seen today for OT evaluation. 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 Activities of Daily Living: Self-feeding: Set-up A Grooming: Set-up A Dressing: Total A for donning offloading shoe on the right and sneaker on the right. Bathing: Demonstrates needing maximal assistance with bathing. Toileting: Total A. Placed on bedpan at the end of the session. Functional Mobility: Supine to sit: CGA-Min A towards the left side with some increased time. Sit to stand: Mod A x2 with FWW and verbal cues for hand placement. Able to get fully upright into standing with bed raised on the second attempt. Ambulation: Unable to assess due to unsteady and weak in standing. Stand to sit: Mod A x2 Sit to supine: Max A x2 with HOB raised slightly. Patient left supine in bed with needs met and on the bedpan (RN aware). Balance: Sitting balance: Good with CGA Standing balance: Poor with Mod A Vitals: At Rest With Activity SpO2 95% 92% Heart Rate 80s 90-100 Blood Pressure 153/89 169/98 Pain: None reported during the session. Skin: See RN/wound care documentation Education: patient have been educated on Role of occupational therapy/rehabilitation, Transfers, ADL, Safety, Functional Mobility, Home Management, Recommendations, and Discharge planning and verbalize understanding. Patient status, treatment, and mobility recommendations discussed with nursing. Assessment: Pt has been seen for occupational therapy evaluation. Jossy Shanks presents with the following performance skill deficits and client factors: decreased strength, body habitus, deconditioning, and compromised mobility status. These performance deficits have led to activity limitations and participation restrictions in the following areas of occupation: dressing, bathing, toileting, transfers / mobility, home management, leisure, driving, and community mobility. Patient seen today for OT evaluation. Patient is s/p R second toe amputation and now required to wear a forefoot offloading shoe on the right. Patient was fitted for the forefoot offloading shoe after therapy was able toobtain the correct size (patient needed XL). The patient demonstrated standing at the EOB x2 with moderate assistance x2 before returning into the bed. The patient was independent with ADLs/IADL routines prior to admission. Currently, the patient is deconditioned, has poor balance, activity tolerance, and endurance impacting his ability to perform Adls and functional mobility with independence. The patient would benefit from discharging to a swing bed rehab facility before going home. The patient is also a good candidate for a single room as he does requiring the lift to transfer out of bed at this time and is very deconditioned. Pt would benefit from further inpatient OT interventions to address performance deficits and maximize participation and independence with occupations of daily living. Equipment needs at discharge: to be determined Anticipated Discharge Dispostion: swing bed rehabilitation facility Other Recommendations: Lift x2 assistance to the chair for all meals Encourage participation in ADL's by providing set up A on tray table and physical assist only as needed Other Recommendations: No other consults recommended at this time. Goals: To be achieved by 05/30/2024. Patient will demonstrate sponge bathe with moderate assistance. Patient will transfer from the bed to the chair with moderate assistance and LRD. Patient will perform lower body dressing with moderate assistance and AE as needed. Patient will demonstrate fair standing balance for functional transfers with moderate assistance and LRD. Patient will demonstrate standing grooming routine for ~5 minutes at the sink. Patient will verbalize precautions for the right foot and demonstrate adherence to them with all ADL routines and transfers. Plan: OT: Therapy Frequency (OT): 2-3 times/wk Planned OT interventions: Role of occupational therapy/rehabilitation, Transfers, Assistive device/technique, Adaptive equipment training, ADL, Safety, Precautions/Protocol, Functional Mobility, Activity pacing/Energy conservation, Home Management, Balance, Recommendations, and Discharge planning. Total Minutes, Occupational Therapy: 90 (evaluation ([id number])) 2017 OT Evaluation Code Rationale: Diagnosis & Pertinent Co-Morbidities affecting Plan of Care: see PMHx Occupational Profile & Client History: Brief Expanded Extensive X Assessment of Occupational Performance: 1-3 performance deficits 3-5 performance deficits X 5 + performance deficits Clinical Decision Making: Low Moderate High X Clinical decision making of moderate complexity using standardized patient assessment instrument and measurable assessment of functional outcome. Pager: [phone] Penny Rodriguez OT 05/16/2024 Occupational Therapy Rehabilitation Department * Consult Note - Marvin Berry RPH - 05/16/2024 11:52 AM EDT The pharmacist-managed vancomycin consult service will sign-off and vancomycin therapy, if it is cherie continued, must be ordered by the responsible prescriber. Pharmacists??? therapeutic drug monitoring will continue for patients receiving vancomycin. Should specific assistance be needed regarding re-initation or continuation of vancomycin therapy, please page the care area pharmacist with any questions you may have. Alternately, during off-hours you may call [phone] to contact a pharmacist. * Consult Note - Ronni Beckham RN - 05/16/2024 9:20 AM EDT During VAS Purposeful Rounding, an assessment of your patient's venous access was performed fby theVascular Access Service. The following tasks were performed if needed and communicated to the bedside RN Choose all that apply: [] PIV(s) checked for patency if daily need for flush needs to be performed [] CVAD was checked for patency if daily flush needs to be performed [x] IV tubing clamped or capped if needed [] Visual inspection of your patient's central line dressing integrity [x] Review of indications for vascular access [] A photo was taken of your patient's central line [x] Visual inspection of your patient's IV dressing integrity [] Other While rounding an intervention was needed and communicated to the bedside RN Choose all that apply: [x] Nonocclusive IV dressing addressed [] Nonocclusive CVAD dressing (please identify type of line) [] Infusion site leaking [] IV not patent and removed [] IV not indicated [] IV placed [] IV restarted [] Implanted Port, PICC or ML dressing changed if needed (either PRN or weekly) [] Other * Plan of Care - Christine Ronquillo, RN - 05/16/2024 2:55 AM EDT Pt reporting c/o nausea unrelieved by PRN SL Zofran administered on prior shift @ 1823. Dr Alvarez notified. Pt ordered 1x Compazine 10 mg IV administered @ 2009 w/ good effect. PRN SL Zofran d/c'd and new order for PRN IV Zofran ordered. Pt denies any further c/o nausea. Pt denies any c/o pain. Pt requiring 2 L O2 via NC d/t O2 sat decreasing to mid 80's. O2 sat 92-94%. Pt denies SOB. LS w/ expiratory wheezing, slightly increased versus night prior. Pt denied SOB although agreeable for PRN neb tx w/ good effect. Pt presenting as drowsy, although easily arousable. Dr Scappaticci notified and assessed pt at bedside. Pt reporting he is no longer experiencing nausea although pt reports I just feel lousy. Pt did not eat dinner on prior or current shift as pt reported no appetite. Per MD drowsy presentation likely r/t 1x IV Compazine, no concerns @ current time. Pt IVF's d/c'd @ 1999. Pt resting for much of shift. Problem: Adult Inpatient Plan of Care Goal: Optimal Comfort and Wellbeing Outcome: Ongoing (Interventions Implemented as Appropriate) Goal: Readiness for Transition of Care Outcome: Ongoing (Interventions Implemented as Appropriate) Problem: Glycemic Control Impaired (Sepsis/Septic Shock) Goal: Blood Glucose Level Within Desired Range Outcome: Ongoing (Interventions Implemented as Appropriate) Problem: Fall Injury Risk Goal: Absence of Fall and Fall-Related Injury Outcome: Ongoing (Interventions Implemented as Appropriate) Problem: Adjustment to Surgery (Extremity Amputation) Goal: Optimal Coping with Amputation Outcome: Ongoing (Interventions Implemented as Appropriate) Problem: Bleeding (Extremity Amputation) Goal: Absence of Bleeding Outcome: Ongoing (Interventions Implemented as Appropriate) Problem: Infection (Extremity Amputation) Goal: Absence of Infection Signs and Symptoms Outcome: Ongoing (Interventions Implemented as Appropriate) Problem: Pain (Extremity Amputation) Goal: Acceptable Pain Control Outcome: Ongoing (Interventions Implemented as Appropriate) * Plan of Care - Evelyn Prakash RN - 05/15/2024 7:05 PM EDT A&O, Denies chest pain and SOB, intermittent OROZCO improving with rest. Patient on 2L NC at startof shift, expiratory wheezing and productive cough noted, PRN nebulizer given x2 with effect, RN able to wean to RA this afternoon. MRSA swab completed per order. No tele orders. Blood sugars coveredper insulin protocol. Continues on IV abx per order, RLE extremity dressing CDI. Incisional pain man aged with PRN Tylenol. NS gtt started per order, tolerating well. PRN Zofran and simethicone given this evening for abdominal discomfort with effect. Q2 hr T&R, Voiding CYU, LBM 05/15. Frequent checks, safety maintained, please see flowsheet for detailed assessment. Problem: Adult Inpatient Plan of Care Goal: Plan of Care Review 05/15/2024 1129 by Evelyn Prakash RN Outcome: Ongoing (Interventions Implemented as Appropriate) 05/15/20241127 by Evelyn Prakash RN Outcome: Ongoing (Interventions Implemented as Appropriate) Goal: Patient-Specific Goal (Individualized) 05/15/20241128 by Evelyn Prakash RN Outcome: Ongoing (Interventions Implemented as Appropriate) 05/15/20241127 by Evelyn Prakash RN Outcome: Ongoing (Interventions Implemented as Appropriate) Goal: Absence of Hospital-Acquired Illness or Injury 05/15/20241128 by Evelyn Prakash RN Outcome: Ongoing (Interventions Implemented as Appropriate) 05/15/20241127 by Evelyn Prakash RN Outcome: Ongoing (Interventions Implemented as Appropriate) Intervention: Identify and Manage Fall Risk Flowsheets (Taken 05/15/2024736) Safety Promotion/Fall Prevention: assistive device/personal items within reach clutter free environment maintained fall prevention program maintained mobility aid in reach nonskid shoes/slippers when out of bed room organization consistent safety round/check completed Intervention: Prevent Skin Injury Flowsheets (Taken 05/15/2024736) Body Position: supine Intervention: Prevent and Manage VTE (Venous Thromboembolism) Risk Flowsheets (Taken 05/15/2024736) VTE Prevention/Management: (SCD on LLE) anticoagulant therapy SCDs on intermittently Intervention: Prevent Infection Flowsheets (Taken 05/15/2024736) Infection Prevention: hand hygiene promoted environmental surveillance performed rest/sleep promoted Goal: Optimal Comfort and Wellbeing 05/15/20241128 by Evelyn Prakash RN Outcome: Ongoing (Interventions Implemented as Appropriate) 05/15/20241127 by Evelyn Prakash RN Outcome: Ongoing (Interventions Implemented as Appropriate) Intervention: Provide Person-Centered Care Flowsheets (Taken 05/15/2024736) Trust Relationship/Rapport: care explained choices provided emotional support provided questions answered questions encouraged reassurance provided thoughts/feelings acknowledged Goal: Readiness for Transition of Care 05/15/20241128 by Evelyn Prakash RN Outcome: Ongoing (Interventions Implemented as Appropriate) 05/15/20241127 by Olinda, Evelyn C S, RN Outcome: Ongoing (Interventions Implemented as Appropriate) Problem: Glycemic Control Impaired (Sepsis/Septic Shock) Goal: Blood Glucose Level Within Desired Range 05/15/20241128 by Evelyn Prakash RN Outcome: Ongoing (Interventions Implemented as Appropriate) 05/15/20241127 by Evelyn Prakash RN Outcome: Ongoing (Interventions Implemented as Appropriate) Intervention: Optimize Glycemic Control Flowsheets (Taken 05/15/2024736) Glycemic Management: blood glucose monitored insulin dose matched to carbohydrate intake supplemental insulin given Problem: Infection Progression (Sepsis) Goal: Absence of Infection Signs and Symptoms 05/15/20241128 by Evelyn Prakash, RN Outcome: Ongoing (Interventions Implemented as Appropriate) 05/15/20241127 by Evelyn Prakash RN Outcome: Ongoing (Interventions Implemented as Appropriate) Intervention: Initiate Sepsis Management Flowsheets (Taken 05/15/2024736) Infection Prevention: hand hygiene promoted environmental surveillance performed rest/sleep promoted Infection Management: aseptic technique maintained Intervention: Promote Recovery Flowsheets (Taken 05/15/2024736) Activity Management: dorsiflexion/plantar flexion performed Airway/Ventilation Support: pulmonary hygiene promoted Sleep/Rest Enhancement: consistent schedule promoted natural light exposure provided noise level reduced regular sleep/rest pattern promoted Problem: Fall Injury Risk Goal: Absence of Fall and Fall-Related Injury 05/15/20241128 by Evelyn Prakash RN Outcome: Ongoing (Interventions Implemented as Appropriate) 05/15/20241127 by Evelyn Prakash RN Outcome: Ongoing (Interventions Implemented as Appropriate) Intervention: Identify and Manage Contributors Flowsheets (Taken 05/15/2024736) Medication Review/Management: medications reviewed Self-Care Promotion: independence encouraged BADL personal objects within reach BADL personal routines maintained safe use of adaptive equipment encouraged meal set-up provided Intervention: Promote Injury-Free Environment Flowsheets (Taken 05/15/2024736) Safety Promotion/Fall Prevention: assistive device/personal items within reach clutter free environment maintained fall prevention program maintained mobility aid in reach nonskid shoes/slippers when out of bed room organization consistent safety round/check completed Problem: Adjustment to Surgery (Extremity Amputation) Goal: Optimal Coping with Amputation 05/15/20241128 by Evelyn Prakash RN Outcome: Ongoing (Interventions Implemented as Appropriate) 05/15/2024 1128 by Evelyn Prakash RN Outcome: Ongoing (Interventions Implemented as Appropriate) Intervention: Support Psychosocial Response Flowsheets (Taken 05/15/2024 0737) Supportive Measures: active listening utilized decision-making supported goal-setting facilitated positive reinforcement provided relaxation techniques promoted self-care encouraged verbalization of feelings encouraged Problem: Bleeding (Extremity Amputation) Goal: Absence of Bleeding 05/15/2024 1129 by Evelyn Prakash, JACKIE Outcome: Ongoing (Interventions Implemented as Appropriate) 05/15/2024 1128 by Evelyn Prakash, JACKIE Outcome: Ongoing (Interventions Implemented as Appropriate) Intervention: Monitor and Manage Bleeding Flowsheets (Taken 05/15/2024 1129) Bleeding Management: dressing monitored Problem: Infection (Extremity Amputation) Goal: Absence of Infection Signs and Symptoms 05/15/2024 112 by Evelyn Prakash, JACKIE Outcome: Ongoing (Interventions Implemented as Appropriate) 05/15/2024 1128 by Evelyn Prakash, JACKIE Outcome: Ongoing (Interventions Implemented as Appropriate) Intervention: Prevent or Manage Infection Flowsheets (Taken 05/15/2024 0737) Infection Management: aseptic technique maintained Problem: Pain (Extremity Amputation) Goal: Acceptable Pain Control 05/15/2024 112 by Evelyn Prakash, JACKIE Outcome: Ongoing (Interventions Implemented as Appropriate) 05/15/2024 1128 by Evelyn Prakash RN Outcome: Ongoing (Interventions Implemented as Appropriate) Intervention: Prevent or Manage Pain Flowsheets Taken 05/15/2024 1129 Pain Management Interventions: pillow support provided care clustered diversional activity provided pain management plan reviewed with patient/caregiver quiet environment facilitated relaxation techniques promoted position adjusted Taken 05/15/2024 0737 Diversional Activities: television smartphone * Consult Note - Emmanuel Corey DO - 05/15/2024 8:57 AM EDT Images from the original note were not included. INFECTIOUS DISEASE CONSULTATION NOTE Reason for Consult: Residual Osteomyelitis Consulting Service: Hospital Medicine Consulting Attending: Treva Diaz MD Admission Date: 05/10/2024 History of Present Illness: Pt is a 69 y.o. male with a history of HTN, HFpEF, CKD (Cr. 1.5), IDDM, COPD, Afib admitted for osteomyelitis. Pt reports that at the end of March, he dropped a cylinder block on his right foot which resulted insome bleeding. He kept it bandaged and put a sock on, which he did not replace for a week. This sock then became fused to the wound, and he noticed more discharge and redness to his RLE. This erythema spread to his lower leg to his R knee. He felt fevers a chills, and thus presented to an OSH. Oncethere, he was fluid resuscitated and briefly on vasopressors, and then transferred to [facility] [place] management. 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 05/14. Reports a hx of cellulitis in the Left leg back in 2009 for which he states he did a course of 6 week son IV abx from [facility]. Has gotten cellulitis about half a dozen times in total. Review of Systems: Pertinent positives and negatives noted in HPI. 14 point ROS otherwise negative except noted in HPI. Allergies/Adverse drug reactions: No Known Allergies Family History: Family History No data available Social History: Housing: lives in a camper in [facility] Occupation: Former [employer], retired in 2017 Pets: None Smoking: About 50 pack years EtOH: Quit drinking 2014 Drug use: Occasional MJ use Physical Exam: Last value Range last 24 hrs Temperature Temp: 36.5 ??C (97.7 ??F) Temp: [36.4 ??C (97.5 ??F)-37.2 ??C (99 ??F)] Heart Rate Heart Rate: 67 Heart Rate: [67-109] Blood Pressure BP: 122/68 BP: (122-151)/(68-89) Respiratory Rate Resp: 18 Resp: [18-32] SpO2 SpO2: 98 % SpO2: [94 %-98 %] General: no acute distress Head: normocephalic, atraumatic EENT: No conjunctival petechiae Cardiovascular: RRR, no murmur, rubs, or gallops Pulmonary: No increased WOB Abdomen: Soft, non-tender, non-distended Ext: No deformity Skin: Bilateral chronic venous stasis changes, more erythematous discoloration of RLE up to mid legas compared to L leg. Neuro: A&O, moves all 4 extremities spontaneously Psych: Euthymic, pleasant I have reviewed the pertinent laboratory, microbiology, and diagnostic/radiology/procedure results: Recent Labs 05/15/24 0512 05/14/24 0501 05/13/24 0529 WBC 13.4* 15.5* 15.5* HGB 10.9* 10.8* 10.9* HCT 34.1* 32.8* 33.3* PLATELET 227 190 186 Recent Labs 05/15/24 0512 05/14/24 0501 05/13/24 0529 NA 135 137 137 K 5.2* 4.4 4.4 CL 100 105 104 CO2 23 22 24 BUN 58* 46* 57* CREATININE 2.46* 1.56* 1.53* CRP (mg/L) Date Value 05/12/2024 152.4 (H) Sed Rate (mm/hr) Date Value 05/12/2024 >119 (H) Microbiology: Microbiology Results (last 7 days) Procedure Component Value - Date/Time Blood culture [[id number]] Collected: 05/10/24 0232 Lab Status: Final result Specimen: Blood from Hand, Right Updated: 05/15/24 0701 Blood Culture No growth at 5 days. Tissue culture [[id number]] (Abnormal) Collected: 05/14/24 1133 Lab Status: Preliminary result Specimen: Toe Updated: 05/14/24 1459 Gram Stain -- Few Neutrophils seen Rare Gram Positive Cocci in pairs seen Results called to and read back by Dr. Mihaela Galvan 05/14/24 14:57:00 Organism Gram Positive Cocci in pairs Skin/Superficial Wound Culture Toe [[id number]] (Abnormal) Collected: 05/10/24 0256 Lab Status: Final result Specimen: Superficial Wound from Toe Updated: 05/12/24 1520 Skin/Superficial Wound Culture -- Rare mixed bacterial morphotypes suggestive of normal cutaneous armani including Rare Gram Negative Rods Gram Stain -- Many Neutrophils seen Few Gram Positive Cocci seen Organism Gram Negative Rods Gram Positive Cocci Antimicrobials: Vancomycin 05/10- present Zosyn 05/10-05/14 CTX 2g/Q24 05/14- Present Imaging/diagnostics: Impression: Pt is a 69 y.o. male with a history of HTN, HFpEF, CKD (Cr. 1.5), IDDM, COPD, Afib admitted for osteomyelitis. Superficial cultures are growing polymicrobial GNR and GPC in pairs while toe culture from the OR is growing GPC in pairs. Given undifferentiated species, reasonable cover MRSA. RECOMMENDATIONS: Please obtain MRSA nares Agree with IV vancomycin and CTX pending speciation. Patient discussed with ID attending Dr. Hein. Thank you for the consult. ID consult service will continue to follow. Please page ID Red team (pager [phone]) with questions or concerns. Emmanuel Corey, DO Internal Medicine PGY-2 Pager: [phone] Epic Chat 05/15/2024 Associated attestation - Rodriguez Hein MD - 05/15/2024 10:46 PM EDT ID Attending Addendum: I have seen and examined this patient. I have reviewed and agree with the history, findings, assessment, and plan of care as documented in Dr. Corey's note. The assessment and plan were formulated in discussion with me. In short, Mr. Shanks is a 69y/o M with a history of HFpEF with chronic venous stasis, IDDM (A1c 5.9), and CKD who presents with right 2nd toe osteomyelitis following trauma ~1 month ago when he dropped a cinder block on his toe. He is s/p amputation through the base of the proximal phalanx of the right 2nd toe on 05/14/24. Proximal bone culture is growing GPCs in pairs. On exam, the cellulitis in the right lower extremity has receded from the marked border with no significantTTP or warmth. Dr. Corey's note mentions rare GNRs, but these seem to be from the superficial wound rather than theproximal right 2nd toe. Mr. Shanks is on IV ceftriaxone plus IV vancomycin pending identification of the GPCs. Cr improvedto 1.53 and now is back up to 2.46 on IV vancomycin. This should be followed closely. Hopefully we can stop IV vancomycin before the next dose. The rapid spread of cellulitis up the right leg and GPCs in pairs suggest a streptococcal infection, but we should have more results soon. Rodriguez Hein MD * Care Management - Shirley Samuel RN - 05/15/2024 8:52 AM EDT OFFICE OF CARE MANAGEMENT PROGRESS NOTE LOS: Hospital Day 5 days Chart reviewed, care reviewed with primary team and at interdisciplinary rounds. Patient continues to meet inpatient level of care related to: Sepsis, osteomyelitis. Decision Maker: Self Functional status prior to admission: Independent Home Environment: Others in the home: alone. Current Living Arrangements: other (see comments). Accessibility Concerns: . Current Functional Ability: Assistive Person DME used at home: none DME Needed at Discharge: No Patient is insured through: Primary Insurance: [employer] MANAGED MEDICARE Payor: [employer] MANAGED MEDICARE / Plan: Send the [employer] [facility] MANAGED MEDICARE COMPLETE / Product Type: *No Product type* / Secondary Insurance: N/A Last Physical Therapy Recommendation: with Last Occupational Therapy Recommendation: with Plan for discharge is: Home w/ Services Outpatient Agency/Support Group Needs: Homecare agency OPAT Orders: ID Consult Ordered Location: Home Home Health Services: IV Therapy Agency Referrals: [place] [address] or Home Care Orders: 1. IV Antibiotics: Pending OPAT recommendations. 2. Patient teaching for administration of IV Antibiotics 3. Weekly labs - CBC with diff, Electrolytes, BUN/Creatinine, AST/ALT, ESR, CRP 4. PICC line care/flushes and dressing change NS Flushes 3-10 ml before and after medication administration and PRN Heparin 1-3 ml 100 unit flush to lock, PRN 5. Assess and Evaluate - Pain: use and effectiveness of medications; Elimination patterns; Nutritional status Equipment to be ordered: IV Antibiotics PICC line flushes Infusion supplies/pumps Transportation: family or friend will provide son. Barriers to discharge: Discharge planning Plan going forward: [facility] routed and pended. [facility] routed. Care Management will continue to follow and assist with discharge planning and coordination of care as indicated. Anticipated Date of Discharge: 05/19/2024 Shirley Samuel RN CM Associate Music Professor- Medicine Office of Care Management Ext: [phone] Pager: [phone] * Plan of Care - Christine Ronquillo JACKIE Broussard - 05/15/2024 6:07 AM EDT Pt politely declined offer for PRN neb tx. Pt POC BG @ 1915 207. Of note pt received both scheduledand carb counted doses of Humalog by prior shift RN later in evening d/t pt not being awake upon arrival to unit from PACU- per pt. Pt received Humalog 1 unit w/ meal @ 1720 and carb counted dose of Humalog 8 units @ 1907. This RN noted HS scheduled Humalog to be in carb control dosing with meals. POC BG rechecked @ 2102 w/ result of 257. Dr Alvarez notified and revised pts insulin orders. Per new order pt not to receive scheduled HS Humalog, revised to Humalog carb controlled and slidingscale doses TID w/ meals. Pt received HS scheduled Lantus 12 units @ 2115. Per pt Lantus 12 units @HS follows his home schedule and he does not use Humalog @ HS. Pt sleeping & politely declined requiring recheck @ 2315. Pt scheduled for POC BG checks ACHS. Per further discussion w/ pt later, pt agreeable to allow additional POC BG recheck @ 0251, POC BG 279. Of note pt has not had any food/drinks (w/ exception of water) since prior shift. Pt reported he did not expect for his sugar to further increase. Dr Alvarez notified of POC BG 279. Per MD POC BG's changed to Q4H now w/ moderate sliding scale. Lantus is now scheduled to 12 units DAILY in AM versus HS. Pt agreeable w/ new plan and educated on importance of keeping POC BG's in tighter range to promote wound healing. Pt in agreement. Pt POC BG @ 0455 223. Pt denies pain. Pt resting in room. Call light within pts reach. Problem: Adult Inpatient Plan of Care Goal: Optimal Comfort and Wellbeing Outcome: Ongoing (Interventions Implemented as Appropriate) Problem: Glycemic Control Impaired (Sepsis/Septic Shock) Goal: Blood Glucose Level Within Desired Range Outcome: Ongoing (Interventions Implemented as Appropriate) Problem: Infection Progression (Sepsis) Goal: Absence of Infection Signs and Symptoms Outcome: Ongoing (Interventions Implemented as Appropriate) Problem: Fall Injury Risk Goal: Absence of Fall and Fall-Related Injury Outcome: Ongoing (Interventions Implemented as Appropriate) Problem: Adjustment to Surgery (Extremity Amputation) Goal: Optimal Coping with Amputation Outcome: Ongoing (Interventions Implemented as Appropriate) Problem: Bleeding (Extremity Amputation) Goal: Absence of Bleeding Outcome: Ongoing (Interventions Implemented as Appropriate) Problem: Infection (Extremity Amputation) Goal: Absence of Infection Signs and Symptoms Outcome: Ongoing (Interventions Implemented as Appropriate) Problem: Pain (Extremity Amputation) Goal: Acceptable Pain Control Outcome: Ongoing (Interventions Implemented as Appropriate) * Plan of Care - Opal Jett RN - 05/14/2024 5:58 PM EDT OUTCOME EVALUATION NOTE: OUTCOME SUMMARY: Pt A&Ox4, VSS on RA at start of shift-put on 2L NC after surgical procedure. Pt had 2nd R toe amputation-was wheezy, given nebulizer, put on o2-o2sat stabilized. Pt R foot wrapped in derek bandage with gauze-dressing change orders in pt chart (dressing to be changed every 3 days). Pt urinating inurinal-now on regular diet. No BM during this shift. Pt denies pain, nausea, SOB, chest tightness and numbness/tingling. PLAN MOVING FORWARD: -I&Os -VS monitoring -encourage ambulation with offloading shoe INDIVIDUALIZED FALL PREVENTION INTERVENTIONS: Patient-specific fall risk factors per assessment: [current deficits]: generalized weakness, recentsurgical procedure to R foot Assistance [level of assistance required for transfers and ambulation]: 1-2 assist w walker Supervision [direct monitoring required during toileting and ADLs]: arms reach Surveillance [continuous indirect monitoring]: masimo, call light in reach, room near nurses station Patient-specific fall prevention interventions for sensory deficits provided, if applicable: [X] Yes CARE PLAN GOAL OUTCOME EVALUATION: Problem: Adult Inpatient Plan of Care Goal: Plan of Care Review Outcome: Ongoing (Interventions Implemented as Appropriate) Goal: Patient-Specific Goal (Individualized) Outcome: Ongoing (Interventions Implemented as Appropriate) Goal: Absence of Hospital-Acquired Illness or Injury Outcome: Ongoing (Interventions Implemented as Appropriate) Goal: Optimal Comfort and Wellbeing Outcome: Ongoing (Interventions Implemented as Appropriate) Goal: Readiness for Transition of Care Outcome: Ongoing (Interventions Implemented as Appropriate) Problem: Glycemic Control Impaired (Sepsis/Septic Shock) Goal: Blood Glucose Level Within Desired Range Outcome: Ongoing (Interventions Implemented as Appropriate) Problem: Infection Progression (Sepsis) Goal: Absence of Infection Signs and Symptoms Outcome: Ongoing (Interventions Implemented as Appropriate) Problem: Fall Injury Risk Goal: Absence of Fall and Fall-Related Injury Outcome: Ongoing (Interventions Implemented as Appropriate) * Brief Op Note - Camilo Miller MD - 05/14/2024 12:24 PM EDT Brief Operative Note Patient Name: Jossy Shanks : [id number] MR#: [id number] Case Date: 05/14/2024 Surgeon: Surgeons and Role: * Elkin Garcia MD - Primary * Camilo Miller MD - Resident - Assisting Preoperative diagnosis: right second toe osteomyelitis Postoperative diagnosis: * No post-op diagnosis entered * Procedure(s) (LRB): AMPUTATION, TRANSMETATARSAL TOE, ONE TOE (WRVU 6.64) (Right) Anesthesia: General Findings: R 2nd toe osteomyelitis, s/p amputation through base of the proximal phalanx, with proximal bone cultures sent Complications: none Estimated Blood Loss: 10 mL* No values recorded between 05/14/2024 11:16 AM and 05/14/2024 11:53 AM * Specimens removed during surgery: Order Name Source Comment Collection Info Order Time SPECIMEN TO PATHOLOGY right second toe osteomyelitis RIGHT 2ND TOE excision 05/14/2024 11:32 AM Time specimen removed from patient: 11:30 AM Number of tissue samples (in container) 1 Fluids: Intraprocedure Crystalloid Total Intake lactated ringers 500.00 mL Total Intake 500 mL Output Blood Loss 10 mL Total Output 10 mL Net Net Volume 490 mL PRBCs: none (See Anesthesia Record/Report for Other Blood Products) Urine Output: (no urine output recorded) Drains: none Disposition: awakened from anesthesia, extubated and taken to the recovery room in a stable condition, having suffered no apparent untoward event. Condition: doing well without problems (Please see the Surgical Encounter Summary for any Implant and Specimen details pertinent to this patient.) Surgical Infection Prevention Bundle Used? No * Op Note - Elkin Garcia MD - 05/14/2024 11:16 AM EDT [facility] Operative Note Patient Name: Jossy Shanks : [id number] MR#: [id number] Case Date: 05/14/2024 Surgeon: Surgeons and Role: * Elkin Garcia MD - Primary * Camilo Miller MD - Resident - Assisting Preoperative diagnosis: right second toe osteomyelitis distal phalanx Postoperative diagnosis: * No post-op diagnosis entered * Procedure(s) (LRB): AMPUTATION, TRANSMETATARSAL TOE, ONE TOE (WRVU 6.64) (Right) Base of proximal phalanx left in place Proximal cultures sent Anesthesia: General Estimated Blood Loss: 10 mL Specimens removed during surgery: None Drains: * No LDAs found * Surgical Closure: Primary Closure - skin incision is completely closed without any wires, mary, drains or other devices Disposition: awakened from anesthesia, extubated and taken to the recovery room in a stable condition, having suffered no apparent untoward event. Condition: doing well without problems (Please see the Surgical Encounter Summary for any Implant and Specimen details pertinent to this patient.) HPI/Surgical Indications: This patient is a 69-year-old male was admitted and was found to have osteomyelitis of the distal phalanx of his right second toe. He was brought to the operating room for amputation of the second toe. Procedure Description: Patient was brought to the operating. General anesthesia was used. His right lower extremity was prepped and draped in usual sterile fashion. We did a timeout. To make sure we have the correct patient, correct extremity, the correct toe, his drug allergies were reviewed, intravenous antibiotics were continued. We wrapped an Esmarch around his foot and looped it around itself over his distal calf. Examining his second toe he had a soft tissue wound over the tip of the phalanx. We carolyn out an incision incorporating the proximal phalanx and then going around the toe at the level of his IP joint. Made a skinincision sharply with knife down through the skin and subcutaneous tissue. We amputated his toe through the joint between his middle phalanx and his proximal phalanx. We sent that off as a specimen. We then removed the distal two thirds or so of his proximal phalanx of left the base in place. We sent proximal cultures. We remove the Esmarch. We irrigated with sterile saline solution. We closed in1 layer using 3-0 nylons. 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 Surgical Infection Prevention Bundle Used? N/A Attestation: Case Date: 05/14/2024 I was present and I participated during the entire procedure (does not need to include opening and closing). Elkin Garcia MD 05/14/2024 * Consult Note - Hakeem Villa, [facility] - 05/14/2024 7:15 AM EDT [facility] Pharmacokinetics Note Drug: Vancomycin Pharmacokinetic target: AUC24 (range) 400-600 mg/L.hr Jossy Shanks is a 69-year-old male receiving intermittent Vancomycin doses Recent measured serum creatinine values: 05/14/2024 05:01 1.56 mg/dL 05/13/2024 05:29 1.53 mg/dL 05/12/2024 04:45 2.03 mg/dL Assessment: Analysis of the most recent level(s) using SocialWire gives the following patient-specific pharmacokinetic parameters: CL: 3.46 L/hr V: 77.7 L T1/2: 18.9 hours At this time, we recommend a regimen of 1750 mg IV every 24 hours, which is predicted to result in a steady-state trough of 14.3 mg/L and AUC24 of 502 mg/L.hr. Recommendations: - Vancomycin 1750 mg IV every 24 hours. Next dose 05/14 @ 0800 - Obtain Vancomycin level 8/3 AM or sooner if renal function declines - Continue to monitor serum creatinine, CrCl, AUC, and trough Hakeem Villa PharmD * Plan of Care - Pretty Ramirez RN - 05/14/2024 4:56 AM EDT OUTCOME EVALUATION NOTE: OUTCOME SUMMARY: Pt is alert and oriented X4. Pt has been NPO since midnight for the surgery in AM.Pt reports pain in his feet, MD notified. Pt is continent, using his urinal. Pt was not able to ambulate to the bath room with the walker due to the weakness in his legs. Continue IV antibiotics PLAN MOVING FORWARD: Safety, falls prevention. IV antibiotics Wound care INDIVIDUALIZED FALL PREVENTION INTERVENTIONS: Patient-specific fall risk factors per assessment: [current deficits]: overweight, generalized weakness Assistance [level of assistance required for transfers and ambulation]: 2 people with walker Supervision [direct monitoring required during toileting and ADLs]: hands on Surveillance [continuous indirect monitoring]: frequent rounding Patient-specific fall prevention interventions for sensory deficits provided, if applicable: CPG GOAL OUTCOME EVALUATION: Problem: Adult Inpatient Plan of Care Goal: Plan of Care Review 05/14/2024 045 by Pretty Ramirez RN Outcome: Ongoing (Interventions Implemented as Appropriate) 05/14/2024 045 by Pretty Ramirez RN Outcome: Ongoing (Interventions Implemented as Appropriate) Goal: Patient-Specific Goal (Individualized) 05/14/2024 0456 by Pretty Ramirez RN Outcome: Ongoing (Interventions Implemented as Appropriate) 05/14/2024 0455 by Pretty Ramirez RN Outcome: Ongoing (Interventions Implemented as Appropriate) Goal: Absence of Hospital-Acquired Illness or Injury 05/14/2024 0456 by Pretty Ramirez RN Outcome: Ongoing (Interventions Implemented as Appropriate) 05/14/2024 0455 by Pretty Ramirez RN Outcome: Ongoing (Interventions Implemented as Appropriate) Goal: Optimal Comfort and Wellbeing 05/14/2024 0456 by Pretty Ramirez RN Outcome: Ongoing (Interventions Implemented as Appropriate) 05/14/2024 0455 by Pretty Ramirez RN Outcome: Ongoing (Interventions Implemented as Appropriate) Goal: Readiness for Transition of Care 05/14/2024 0456 by Pretty Ramirez RN Outcome: Ongoing (Interventions Implemented as Appropriate) 05/14/2024 0455 by Pretty Ramirez RN Outcome: Ongoing (Interventions Implemented as Appropriate) Problem: Glycemic Control Impaired (Sepsis/Septic Shock) Goal: Blood Glucose Level Within Desired Range 05/14/2024 0456 by Pretty Ramirez RN Outcome: Ongoing (Interventions Implemented as Appropriate) 05/14/2024 0455 by Pretty Ramirez RN Outcome: Ongoing (Interventions Implemented as Appropriate) Problem: Infection Progression (Sepsis) Goal: Absence of Infection Signs and Symptoms 05/14/2024 0456 by Pretty Ramirez RN Outcome: Ongoing (Interventions Implemented as Appropriate) 05/14/2024 0455 by Pretty Ramirez RN Outcome: Ongoing (Interventions Implemented as Appropriate) Problem: Fall Injury Risk Goal: Absence of Fall and Fall-Related Injury 05/14/2024 0456 by Pretty Ramirez RN Outcome: Ongoing (Interventions Implemented as Appropriate) 05/14/2024 0455 by Pretty Ramirez RN Outcome: Ongoing (Interventions Implemented as Appropriate) * Plan of Care - Thomas Mcgrath RN - 05/13/2024 10:45 AM EDT Problem: Adult Inpatient Plan of Care Goal: Plan of Care Review Outcome: Ongoing (Interventions Implemented as Appropriate) Goal: Patient-Specific Goal (Individualized) Outcome: Ongoing (Interventions Implemented as Appropriate) Goal: Absence of Hospital-Acquired Illness or Injury Outcome: Ongoing (Interventions Implemented as Appropriate) Goal: Optimal Comfort and Wellbeing Outcome: Ongoing (Interventions Implemented as Appropriate) Goal: Readiness for Transition of Care Outcome: Ongoing (Interventions Implemented as Appropriate) Problem: Glycemic Control Impaired (Sepsis/Septic Shock) Goal: Blood Glucose Level Within Desired Range Outcome: Ongoing (Interventions Implemented as Appropriate) Problem: Infection Progression (Sepsis) Goal: Absence of Infection Signs and Symptoms Outcome: Ongoing (Interventions Implemented as Appropriate) * Plan of Care - Pretty Ramirez RN - 05/13/2024 4:56 AM EDT OUTCOME EVALUATION NOTE: OUTCOME SUMMARY: Pt is alert and oriented X4. Pt reports no pain. Good urin output without godinez. Pt can ambulate tothe bathroom with a walker and 1 person assist. Pt remain on IV antibiotics. Pt was NPO after MN for a surgical procedure in am. PLAN MOVING FORWARD: -Wound care - IV antibiotics therapy - Strict I&O INDIVIDUALIZED FALL PREVENTION INTERVENTIONS: Patient-specific fall risk factors per assessment: [current deficits]: generalized weakness, foot wound Assistance [level of assistance required for transfers and ambulation]: 1 person with a walker Supervision [direct monitoring required during toileting and ADLs]: hands on Surveillance [continuous indirect monitoring]: frequent rounding Patient-specific fall prevention interventions for sensory deficits provided, if applicable: CPG GOAL OUTCOME EVALUATION: Problem: Adult Inpatient Plan of Care Goal: Plan of Care Review Outcome: Ongoing (Interventions Implemented as Appropriate) Goal: Patient-Specific Goal (Individualized) Outcome: Ongoing (Interventions Implemented as Appropriate) Goal: Absence of Hospital-Acquired Illness or Injury Outcome: Ongoing (Interventions Implemented as Appropriate) Goal: Optimal Comfort and Wellbeing Outcome: Ongoing (Interventions Implemented as Appropriate) Goal: Readiness for Transition of Care Outcome: Ongoing (Interventions Implemented as Appropriate) Problem: Glycemic Control Impaired (Sepsis/Septic Shock) Goal: Blood Glucose Level Within Desired Range Outcome: Ongoing (Interventions Implemented as Appropriate) Problem: Infection Progression (Sepsis) Goal: Absence of Infection Signs and Symptoms Outcome: Ongoing (Interventions Implemented as Appropriate) * Consult Note - Kendal Hill RD - 05/12/2024 1:03 PM EDT Nutrition Consult Note Jossy Shanks is a 69 y.o. male w/ PMH of HTN, HFpEF, CKD (bsl Cr ~1.5), IDDM, COPD (not on home O2), rate controlled Afib (Xarelto, dilt, coreg), admitted to [facility] on 05/10/2024 with LE cellulitis 2/2 right foot trauma. Reason for intervention: Diet order question - what type of carb control diet does pt need? Nutrition Recommendations: Carb control level 3 diet Monitor po intake Monitor blood glucose levels Monitor weight trends I was able to discuss plan with provider Medicine Pager Red [phone] . Nutrition consult received regarding what type of carb control diet pt needs. Estimated nutrition needs based on ideal body weight of 89kg: Calories: 5000-9764 calories (20-25kcal/kg) Protein: 89-107g (1-1.2g/kg) Nutrition to continue to follow while inpatient. Kendal Hill RD * Consult Note - Keeley Russell RN - 05/12/2024 12:15 PM EDT Images from the original note were not included. Wound Care Nurse Note Situation: Asked to see Jossy Shanks by Lara Powell, RN for toe wound from brick drop, also sacral area purple and blistered Background: eD-H notes reviewed for history, admitting diagnosis and active problem list. Imaging: Reviewed prior to exam, see report in EMR for details. -Date of Last Pertinent Imagin05/10/24 Vascular Studies: Reviewed prior to exam, see report in EMR for details. -Date of Last ABIs: 05/12/24 Labs Lab Results Component Value Date ALBUMIN 3.3 05/10/2024 HA1C 5.9 (H) 05/10/2024 WBC 19.7 (H) 05/12/2024 WBC 25.8 (H) 05/11/2024 WBC 28.5 (H) 05/10/2024 HGB 10.9 (L) 05/12/2024 HGB 10.9 (L) 05/11/2024 HGB 11.4 (L) 05/10/2024 HCT 33.1 (L) 05/12/2024 HCT 32.5 (L) 05/11/2024 HCT 34.5 (L) 05/10/2024 PLATELET 165 05/12/2024 PLATELET 141 (L) 05/11/2024 PLATELET 135 (L) 05/10/2024 INR 2.5 05/10/2024 PT 27.9 (H) 05/10/2024 Nutritional Status Wt Readings from Last 1 Encounters: 05/11/24 (!) 157.5 kg (347 lb 3.6 oz) Body mass index is 43.4 kg/m??. Nuno Score: 19 Wound Assessment and Care Provided: Patient seen this morning in room 419-A in bed, reason for visit explained to patient, permission received to assess skin. Anatomical location: Right dorsal toe Dressing removed: Xeroform, Gauze Cleansed with: Wound cleanser Wound: abnormal growth coming from toe, soft pink tissue with an area of black eschar Dressing applied: Melgisorb Ag, Gauze Anatomical location: Ischium Dressing removed: Skin: Purple discoloration Dressing applied: Open to air Photos taken: Existing Wounds: Wound 05/10/24 0230 Right dorsal (Active) Wound WDL ex 05/12/24 1214 Dressing Appearance intact;dry 05/12/24 1214 Base black eschar;moist 05/12/24 1214 Area redness 05/12/24 1214 Drainage Characteristics/Odor serosanguineous 05/12/24 1214 Drainage Amount scant 05/12/24 1214 Wound Cleaning cleansed with;wound cleanser 05/12/24 1214 Wound Interventions Dressing changed 05/12/24 1214 Dressing silver impregnated dressing;gauze 05/12/24 1214 Current bed: Assessment: Patient with a wound on right toe from dropping a brick on it last month. There is a soft tissue growth protruding from the toe, which has some black eschar attached. Patient states it does drain quite a bit. Melgisorb Ag applied to the toe and wrapped in gauze and medipore tape. Ischium has some purple discoloration, unknown etiology. Patient states that he has had an area that lookslike a blood blister that has been there for years and bleeds sometimes. Denies pain to ischium. Patient did have a Mepilex sacral border on but due to a deep gluteal cleft, it was retaining moistureand the skin in the gluteal cleft was red and irritated. Can use Z-guard if patient begins to have b reakdown. Wound Care Recommendations: Right toe: Melgisorb Ag and Gauze Bedside nurse to change dressing every 3 days and as needed for dressing with 50% or greater strikethough drainage. 1. Cleanse the wound with dermal wound cleanser or normal saline. 2. Cover the wound bed with Melgisorb Ag cut to fit the wound bed. 3. Cover with Mepilex border dressing. (Melgisorb Ag 6x6 PS # [id number]) (Melgisorb Ag 4x4 PS # [id number]) Sacrum/ischium: open to air, utilize Z-guard if patient begins to have breakdown Supplies left at the bedside: 1 sheet of Melgisorb Ag, wound cleanser Wound Care will complete the consult at this time. If there are further issues please re-consult via eD-H. Discussed plan with: RN: Don Please contact Keeley Russell RN on eDH secure chat or the wound care team on pager [phone] with skin and wound care concerns or questions. * Plan of Care - Thomas Mcgrath RN - 05/12/2024 11:23 AM EDT Problem: Adult Inpatient Plan of Care Goal: Plan of Care Review Outcome: Ongoing (Interventions Implemented as Appropriate) Goal: Patient-Specific Goal (Individualized) Outcome: Ongoing (Interventions Implemented as Appropriate) Goal: Absence of Hospital-Acquired Illness or Injury Outcome: Ongoing (Interventions Implemented as Appropriate) Goal: Optimal Comfort and Wellbeing Outcome: Ongoing (Interventions Implemented as Appropriate) Goal: Readiness for Transition of Care Outcome: Ongoing (Interventions Implemented as Appropriate) Problem: Glycemic Control Impaired (Sepsis/Septic Shock) Goal: Blood Glucose Level Within Desired Range Outcome: Ongoing (Interventions Implemented as Appropriate) Problem: Infection Progression (Sepsis) Goal: Absence of Infection Signs and Symptoms Outcome: Ongoing (Interventions Implemented as Appropriate) * Plan of Care - Pretty Ramirez RN - 05/12/2024 3:16 AM EDT OUTCOME EVALUATION NOTE: OUTCOME SUMMARY: Pt is alert and oriented X 4. Pt reports no pain in his wound. Dressing was changed per PT request. Pt continues on IV antibiotics. PLAN MOVING FORWARD: Vitals and blood sugar checks q 4 Wound care Godinez care Strict I&O INDIVIDUALIZED FALL PREVENTION INTERVENTIONS: Patient-specific fall risk factors per assessment: [current deficits]: generalized weakness Assistance [level of assistance required for transfers and ambulation]: 1 person with a walker Supervision [direct monitoring required during toileting and ADLs]: 1 person hand on Surveillance [continuous indirect monitoring]: frequent rounding Patient-specific fall prevention interventions for sensory deficits provided, if applicable: CPG GOAL OUTCOME EVALUATION: Problem: Adult Inpatient Plan of Care Goal: Plan of Care Review Outcome: Ongoing (Interventions Implemented as Appropriate) Goal: Patient-Specific Goal (Individualized) Outcome: Ongoing (Interventions Implemented as Appropriate) Goal: Absence of Hospital-Acquired Illness or Injury Outcome: Ongoing (Interventions Implemented as Appropriate) Goal: Optimal Comfort and Wellbeing Outcome: Ongoing (Interventions Implemented as Appropriate) Goal: Readiness for Transition of Care Outcome: Ongoing (Interventions Implemented as Appropriate) Problem: Glycemic Control Impaired (Sepsis/Septic Shock) Goal: Blood Glucose Level Within Desired Range Outcome: Ongoing (Interventions Implemented as Appropriate) Problem: Infection Progression (Sepsis) Goal: Absence of Infection Signs and Symptoms Outcome: Ongoing (Interventions Implemented as Appropriate) * Plan of Care - Evelyn Prakash RN - 05/11/2024 7:32 PM EDT A&O, Denies chest pain, no tele orders. Denies SOB, remains on RA. Continues on IV abx per order. Godinez remains in place, LBM 05/11. OOB with 1 assist and walker to bathroom. Frequent checks, safety maintained, please see flowsheet for detailed assessment. Problem: Adult Inpatient Plan of Care Goal: Plan of Care Review Outcome: Ongoing (Interventions Implemented as Appropriate) Goal: Patient-Specific Goal (Individualized) Outcome: Ongoing (Interventions Implemented as Appropriate) Goal: Absence of Hospital-Acquired Illness or Injury Outcome: Ongoing (Interventions Implemented as Appropriate) Intervention: Identify and Manage Fall Risk Flowsheets (Taken 05/11/2024 1253) Safety Promotion/Fall Prevention: assistive device/personal items within reach clutter free environment maintained activity supervised lighting adjusted nonskid shoes/slippers when out of bed room organization consistent safety round/check completed Intervention: Prevent Skin Injury Flowsheets (Taken 05/11/2024 1253) Body Position: sitting up in bed Intervention: Prevent and Manage VTE (Venous Thromboembolism) Risk Flowsheets (Taken 05/11/2024 1253) VTE Prevention/Management: anticoagulant therapy Intervention: Prevent Infection Flowsheets (Taken 05/11/2024 1253) Infection Prevention: environmental surveillance performed equipment surfaces disinfected hand hygiene promoted Goal: Optimal Comfort and Wellbeing Outcome: Ongoing (Interventions Implemented as Appropriate) Intervention: Provide Person-Centered Care Flowsheets (Taken 05/11/2024 1253) Trust Relationship/Rapport: care explained choices provided emotional support provided questions answered questions encouraged reassurance provided Goal: Readiness for Transition of Care Outcome: Ongoing (Interventions Implemented as Appropriate) Problem: Glycemic Control Impaired (Sepsis/Septic Shock) Goal: Blood Glucose Level Within Desired Range Outcome: Ongoing (Interventions Implemented as Appropriate) Intervention: Optimize Glycemic Control Flowsheets (Taken 05/11/2024 1253) Glycemic Management: blood glucose monitored insulin dose matched to carbohydrate intake oral hydration promoted Problem: Infection Progression (Sepsis) Goal: Absence of Infection Signs and Symptoms Outcome: Ongoing (Interventions Implemented as Appropriate) Intervention: Initiate Sepsis Management Flowsheets (Taken 05/11/2024 1253) Infection Prevention: environmental surveillance performed equipment surfaces disinfected hand hygiene promoted Intervention: Promote Stabilization Flowsheets (Taken 05/11/2024 1253) Fluid/Electrolyte Management: fluids provided Intervention: Promote Recovery Flowsheets (Taken 05/11/2024 1253) Sleep/Rest Enhancement: consistent schedule promoted * Initial Assessments - Jessica Stroud RN - 05/11/2024 2:49 PM EDT Office of Care Management Initial Assessment Jessica Stroud RN reviewed record and discussed patient with Care Team. Source of Information: Team, bedside nurse, medical record, and Patient Introduced self/reviewed role; services accepted. Admitted From: Home Reason for Hospitalization: Foot infection Past medical History: No past medical history on file. Hospitalizations Within the Past 30 Days: no previous admission in last 30 days Current Decision-Making Capacity: Self If AD's have not been completed the following surrogate would be surrogate decision maker per [place] surrogate decision making law. (Only good for 180 days) Son CONRADO Any patient receiving care in [place] must abide by [place] law. The hierarchy for surrogate decision making is: (a) Patient???s spouse or civil union partner unless there is a divorce proceeding, separation agreement, or restraining order limiting that person???s relationship with the patient. (b) Any adult son or daughter of the patient. (c) Either parent of the patient. (d) Any adult brother or sister of the patient. (e) Any adult grandchild of the patient. (f) Any grandparent of the patient. (g) Any adult aunt, uncle, niece, or nephew of the patient. (h) A close friend of the patient. (i) The agent with financial power of insurance attorney or a conservator appointed in accordance with RSA 464-A. (j) The guardian of the patient???s estate. Advance Care Planning: Attempt Cardiopulmonary Resuscitation - Inpatient <no information> -Advanced Directive: No, need to discuss Current Coping/Education/Information Needs: Current Functional Ability: Assistive Person Functional Status Prior to Admission: Independent Prior ADLs & IADLs: Independent with all ADLs & IADLs Home Environment: Others in the home: alone. Current Living Arrangements: other (see comments). Accessibility Concerns: . Resource / Environmental Concerns: Resource/Environmental Concerns: none Current DME: none Home Address listed as: [address] [place] [id number] Pt is not currently residing here. Current address is as below: [facility] [address] [place], [place] [id number] Social & Family Supports: All names listed below confirmed with patient as current and correct Extended Emergency Contact Information Primary Emergency Contact: RimmaEddie Mobile Relation: Son/Pyveaovk-zh-kol Secondary Emergency Contact: Gifty Bucio [facility] Relation: Mother Current Care Provided by: self Provides Primary Care For: no one Caregiver if needed: none Quality of Family relationships: supportive Community Resources being provided currently: none Behavioral Health History: Substance Use/Abuse listed: Social History Tobacco Use Smoking Status Former Smokeless Tobacco Never 0 No problems reported 1-2 Low level 3-5 Moderate level 6-8 Substantial level 9- 10 Severe level 0 to 7 points: Low risk 8 to 15 points: Medium risk 16 to 19 points: High risk 20 to 40 points: Addiction likely Other Pertinent/Service Specific Information: Health/Prescription Coverage: Primary Insurance: [employer] OOS Payor: [employer] OOS / Plan: [facility] [employer] OOS PPO / Product Type: *No Product type* / Secondary Insurance: N/A ; Prescription Coverage: Yes Preferred Pharmacy: [id number] - [place], [place] - [address] [place] [address] [address] [facility] [address] [facility] [id number] Primary Care Provider listed: None None Pt [place] PCP in [place] Patient/Caregiver Goals of Treatment: Potential Needs for Transition of Care: none, home health care Agency Referrals: I have met with the patient to: discuss discharge planning needs. provide the [facility], Office of Care Management letter from the [employer] pertaining to rehab referrals. provide a letter describing our affiliations within the [facility] and educate about their right to choose where referrals are sent. provide a list of Home Health Agencies / Durable Medical Equipment vendors which serve their preferred geographic area. provided patient with [facility] Star Quality Rating handout. They have requested referrals to: [facility] [address] [place] [address] Note routed to a Setter Out who will communicate referrals to facilities and provide any required information. Transportation: no concerns Transportation Anticipated: family or friend will provide Concerns to be Addressed: discharge planning Assessment: Patient is admitted to Surgical service for foot infection Plan going forward: Pt reports he is currently living in [place]; address noted above. He is currently on a wait list for housing (an apartment) in [place], [place]; ETA for move-in is 4-8weeks. He does not feel that his local family members would be able to house him in the interim andexpresses that he is comfortable in his camper, which has amenities. He is fully independent at baseline but has used [facility] in the past; a referral will be routed. His son CONRADO will be his transportation home. Care Management team will continue to follow and assist with discharge planing and coordination of care as indicated. Jessica Stroud RN Office of Care Management * Plan of Care - Nicky Ramirez RN - 05/11/2024 3:35 AM EDT Problem: Adult Inpatient Plan of Care Goal: Plan of Care Review Outcome: Ongoing (Interventions Implemented as Appropriate) Goal: Patient-Specific Goal (Individualized) Outcome: Ongoing (Interventions Implemented as Appropriate) Goal: Absence of Hospital-Acquired Illness or Injury Outcome: Ongoing (Interventions Implemented as Appropriate) Goal: Optimal Comfort and Wellbeing Outcome: Ongoing (Interventions Implemented as Appropriate) Goal: Readiness for Transition of Care Outcome: Ongoing (Interventions Implemented as Appropriate) Problem: Glycemic Control Impaired (Sepsis/Septic Shock) Goal: Blood Glucose Level Within Desired Range Outcome: Ongoing (Interventions Implemented as Appropriate) Problem: Infection Progression (Sepsis) Goal: Absence of Infection Signs and Symptoms Outcome: Ongoing (Interventions Implemented as Appropriate) * Plan of Care - Lara Powell RN - 05/10/2024 4:53 PM EDT Problem: Adult Inpatient Plan of Care Goal: Plan of Care Review Outcome: Ongoing (Interventions Implemented as Appropriate) Goal: Patient-Specific Goal (Individualized) Outcome: Ongoing (Interventions Implemented as Appropriate) Goal: Absence of Hospital-Acquired Illness or Injury Outcome: Ongoing (Interventions Implemented as Appropriate) Goal: Optimal Comfort and Wellbeing Outcome: Ongoing (Interventions Implemented as Appropriate) Goal: Readiness for Transition of Care Outcome: Ongoing (Interventions Implemented as Appropriate) Problem: Glycemic Control Impaired (Sepsis/Septic Shock) Goal: Blood Glucose Level Within Desired Range Outcome: Ongoing (Interventions Implemented as Appropriate) Problem: Infection Progression (Sepsis) Goal: Absence of Infection Signs and Symptoms Outcome: Ongoing (Interventions Implemented as Appropriate) * Consult Note - Rodriguez Sinclair RPH - 05/10/2024 5:04 AM EDT Clinical Pharmacist Note - VancFD Jossy Shanks [id number] Jossy Shanks is a 69 y.o. male who is starting antibiotic therapy which includes intravenous vancomycin. Based on a review of the patient???s chart and/or conversation with the patient???s providers vancomycin is being used for empiric coverage of SSTI/Osteo infection with a targeted goal of 10 -20 mcg/mL. The following Pharmacokinetic data has been evaluated: Wt Readings from Last 1 Encounters: 05/10/24 (!) 159.8 kg (352 lb 4.7 oz) Ht Readings from Last 1 Encounters: 05/10/24 190.5 cm (6' 3) Labs: Creatinine clearance: Creatinine (mg/dL) Date Value 05/10/2024 3.94 (H) Dosing recommendations: Patient with cellulitis vs osteo. Acute on chronic kidney disease. Scr baseline 1.5 now 3.94. Loaded with vancomycin 2500 mg IV x1 from OSH. Random 26.9. Will plan for another random ~15 hour from first dose today at 1200 and will follow with intermittent dosing. We will continue to monitor the patient as long as he remains on vancomycin therapy. Thank you for this consult and please page the care area pharmacist with any questions you may have. Alternately, during off-hours (9p-7a) you may call [phone] to contact a pharmacist. Rodriguez Sinclair RPH * Consult Note - Tyrone Rehman MD - 05/10/2024 3:35 AM EDT Orthopaedic Surgery Consult Note Attending: Dr. Contreras We are seeing Jossy Shanks at the request of Mary De La Fuente MD. Paged: 3:00 Evaluated: 3:05 Chief Complaint: R second toe ulcer History of Present Illness: Jossy Shanks is a 69 y.o. male with DM who presents with septic shockin the setting of diffuse cellulitis of the RLE. He dropped a cinder block on his R second toe about a month ago and has since developed a draining wound from the dorsal aspect of the toe. He had shaking body chills about two days ago and then yesterday morning almost passed out while ambulating athome. He was taken to the hospital where he was found to be hypotensive and with elevated WBC, so CT RLE was completed to assess for underlying abscess and he was initiated on broad spectrum IV antibiotics. He was transferred here to the MICU for further management. Fortunately upon time of transfer he no longer required pressor support ans has remained hemodynamically stable since. Patient currently afebrile and hemodynamically stable. Denies fever, chills, or malaise. WBC 28.5 Lab Results Component Value Date HA1C 5.9 (H) 05/10/2024 Past Medical History: Patient Active Problem List Diagnosis Code Degenerative lumbar spinal stenosis M48.061 Septic shock A41.9, R65.21 Past Surgical History: No past surgical history on file. No Known Allergies No current facility-administered medications on file prior to encounter. Current Outpatient Medications on File Prior to Encounter Medication Sig Dispense Refill carvediloL (Coreg) 25 mg tablet Take 25 mg by mouth 2 times daily (with meals). liraglutide (VICTOZA) 0.6 mg/0.1 mL (18 mg/3 mL) Pen Injector Inject 1.2 mg subcutaneously daily. insulin lispro (HumaLOG) 100 unit/mL Insulin Pen Inject 8 Units subcutaneously 3 times daily (before meals). insulin glargine (Lantus) 100 unit/mL (3 mL) pen Inject 20 Units subcutaneously nightly. lisinopriL (Zestril) 5 mg tablet Take 5 mg by mouth daily. furosemide (LASIX) 20 mg Tablet Take 40 mg by mouth daily. 0 DILT-XR 240 mg Capsule,Degradable Cnt Release Take 240 mg by mouth daily. 0 XARELTO 15 mg Tablet Take 15 mg by mouth daily. 0 multivitamin (THERAGRAN) Tablet Take 1 tablet by mouth daily. Magnesium 200 mg Tablet Take 400 mg by mouth daily. acetaminophen (TYLENOL) 650 mg Tablet Sustained Release Take 1,300 mg by mouth every 8 hours as needed for Pain. Do not exceed 6 tabs in 24 hours [DISCONTINUED] meTOPROLOL (LOPRESSOR) 100 mg Tablet Take 100 mg by mouth 2 times daily. 0 [DISCONTINUED] losartan (COZAAR) 50 mg Tablet Take 50 mg by mouth daily. 0 [DISCONTINUED] traMADol (ULTRAM) 50 mg Tablet Take 50 mg by mouth 4 times daily as needed. 0 Family History: Negative for bleeding/clotting disorders or anesthetic complications. Social History: Social History Occupational History Not on file Tobacco Use Smoking status: Former Smokeless tobacco: Never Substance and Sexual Activity Alcohol use: Not on file Drug use: Not on file Sexual activity: Not on file Review of Systems: As per HPI, otherwise negative Objective: Temp: [36.5 ??C (97.7 ??F)-37.1 ??C (98.8 ??F)] Heart Rate: [88-102] Resp: [20-27] BP: (119-139)/(60-83) SpO2: [92 %-95 %] Heart Rate from SpO2: [90 bpm-106 bpm] Gen: Resting comfortably in NAD, AOx3, answering questions appropriately. HEENT: NC, AT. CV: Regular rate. No murmurs, rubs, or gallops. Pulm: Normal respiratory effort on room air. Skin: Intact Psych: Normal mood and pleasant affect. 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, EPL, AIN, IO Brisk capillary refill distally 2+ radial pulse Left Upper Extremity Exam: No ecchymosis, erythema, or overlying skin changes No effusion in shoulder / elbow / wrist No TTP clavicle, shoulder, humerus, elbow, forearm, wrist, hand Painless range of motion of shoulder / elbow / wrist / fingers Sensation intact to light touch in Ax/M/R/U/LABC distributions Motor intact shoulder abduction, elbow flexion/extension, wrist flexion/extension, grails 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 developer, EPL, AIN, IO Brisk capillary refill distally 2+ radial pulse Right Lower Extremity Exam: Significant venous stasis changes up to proximal calf Painless range of motion of Hip / knee / ankle Sensation intact to light touch in Saphenous/Sural/LFC/Femoral/MP/LP/T/DP/SP distributions Motor intact hip flexion/extension, knee flexion/extension, ankle flexion/extension, EHL/FHL/TA Brisk capillary refill distally 2+ DP/PT pulses Left Lower Extremity Exam: Significant venous stasis changed up to proximal calf Painless range of motion of Hip / knee / ankle Sensation intact to light touch in Saphenous/Sural/LFC/Femoral/MP/LP/T/DP/SP distributions Motor intact hip flexion/extension, knee flexion/extension, ankle flexion/extension, EHL/FHL/TA Brisk capillary refill distally 2+ DP/PT pulses Labs: Last wbc, hgb, hct plt Recent Labs 05/10/24 0220 WBC 28.5* HGB 11.4* HCT 34.5* Last CRP, SEDRATENo results for input(s): CRP, SEDRATE in the last 7068 hours. Imaging: CT RLE (05/10/24): Soft tissue swelling diffusely throughout lower calf and foot. No apparent abscess or drainable fluid collection. Assessment/Plan: 69 y.o. male who presents with R second toe ulcer. The patient's elevated inflammatory markers are concerning for active infectious process, and radiographic findings suggest presence of osteomyelitis. Recommend obtaining MRI with without contrast of the R foot to further characterize extent of osteomyelitis and assess for other sequelae of infection. Patient would benefit from ID consultation for antibiotic optimization and possible outpatient antibiotic therapy (OPAT). Also request ABIs to assess perfusion and subsequent wound healing potential. Discussed with MICU team to engage orthopedics if the clinical picture worsens or they believe there is any role for sooner surgical evaluation and management given his current stable status. They were in agreement and will contact should any new changes develop in his course. Please page [phone] following completion of requestedimaging and studies. - Activity: no restrictions at this time - DVT prophylaxis: per primary; recommend lovenox 30 mg BID - Antibiotics: per ID - Imaging / studies needed: MRI wwo contrast, ABIs, ESR, CRP Tyrone Rehman MD Orthopaedic Surgery, 7400 documented in this encounter Plan of Treatment Upcoming Encounters Date Type Department Care Team (Late st Contact Info) Description 06/10/2024 10:30 AM EDT Office [place] [address] Elkin Garcia MD [facility] [place] [address] Scheduled Referrals Name Type Priority Associated Diagnoses Order Schedule OPAT: Order / Recommendation for Post Discharge IV Antibiotic Management Outpatient Referral Routine Osteomyelitis of second toe of right foot Ordered: 05/17/2024 Referral to Nephrology Outpatient Referral Routine Stage 4 chronic kidney disease Ordered: 05/23/2024 documented as of this encounter Procedures Procedure Name Priority Date/Time Associated Diagnosis Comments POC, GLUCOSE Routine 05/23/2024 12:32 PM EDT CBC (WITH DIFF) Routine 05/23/2024 9:46 AM EDT BASIC METABOLIC PANEL Routine 05/23/2024 9:46 AM EDT POC, GLUCOSE Routine 05/23/2024 7:44 AM EDT HC TR PSLD, RED BLOOD CELLS, IRRADIATED Routine 05/23/2024 3:49 AM EDT Septic shock POC, GLUCOSE Routine 05/23/2024 3:49 AM EDT POC, GLUCOSE Routine 05/23/2024 1:26 AM EDT SCAN, PERIPHERAL BLOOD Routine 1:19 AM EDT CBC (WITH DIFF) Routine 05/23/2024 1:19 AM EDT PHOSPHORUS Routine 05/23/2024 1:19 AM EDT MAGNESIUM Routine 05/23/2024 1:19 AM EDT BASIC METABOLIC PANEL Routine 05/23/2024 1:19 AM EDT POC, GLUCOSE Routine 05/22/2024 8:21 PM EDT POC, GLUCOSE Routine 05/22/2024 6:20 PM EDT Upper Gi Endoscopy, W/Dir Submuc Inj ([id number]) 05/22/2024 4:39 PM EDT ? melena Upper Gi Endoscopy, Ctrl Bleed ([id number]) 05/22/2024 4:39 PM EDT ? melena Upper GI Endoscopy, Diagnostic ([id number]) 05/22/2024 4:39 PM EDT ? melena UPPER GI ENDOSCOPY Routine 05/22/2024 12 :48 PM EDT ABORH RECHECK (PATIENT HISTORY FOUND) Routine 05/22/2024 11:18 AM EDT HEMOGLOBIN AND HEMATOCRIT, BLOOD Routine 05/22/2024 11:18 AM EDT TYPE AND SCREEN ([facility]) Routine 05/22/2024 11:18 AM EDT POC, GLUCOSE Routine 05/22/2024 11:14 AM EDT POC, GLUCOSE Routine 05/22/2024 8:07 AM EDT CBC (WITH DIFF) Routine 05/22/2024 5:18 AM EDT PHOSPHORUS Routine 05/22/2024 5:18 AM EDT MAGNESIUM Routine 05/22/2024 5:18 AM EDT HEPATIC FUNCTION PANEL Add-On 5:18 AM EDT BASIC METABOLIC PANEL Routine 05/22/2024 5:18 AM EDT POC, GLUCOSE [...] AM EDT CRP, ACUTE INFLAMMATION Add-On 05/21/20 24 4:58 AM EDT CBC (WITH DIFF) Routine 05/21/2024 4:58 AM EDT PHOSPHORUS Routine 05/21/2024 4:58 AM EDT MAGNESIUM Routine 05/21/2024 4:58 AM EDT BASIC METABOLIC PANEL Routine 05/21/2024 4:58 AM EDT POC, GLUCOSE Routine 05/21/2024 3:45 AM EDT POC, GLUCOSE Routine 05/20/2024 11:44 PM EDT POC, GLUCOSE Routine 05/20/2024 7:24 PM EDT POC, GLUCOSE Routine 05/20/2024 4:24 PM EDT HEMOGRAM Routine 05/20/2024 12:35 PM EDT POC, GLUCOSE Routine 05/20/2024 11:52 AM EDT US RETROPERITONEAL COMPLETE Routine 05/20/2024 10:36 AM EDT POC, GLUCOSE Routine 05/20/2024 8:03 AM EDT CBC (WITH DIFF) Routine 05/20/2024 4:27 AM EDT PHOSPHORUS Routine 05/20/2024 4:27 AM EDT MAGNESIUM Routine 05/20/2024 4:27 AM EDT BASIC METABOLIC PANEL Routine 05/20/2024 4:27 AM EDT POC, GLUCOSE Routine 05/20/2024 3:11 AM EDT POC, GLUCOSE Routine 05/19/2024 11:07 PM EDT POC, GLUCOSE Routine 05/19/2024 8:20 PM EDT PTH Routine 05/19/2024 5:09 PM EDT IRON AND TIBC Routine 05/19/2024 5:09 PM EDT FERRITIN Routine 05/19/2024 5:08 PM EDT POC, GLUCOSE Routine 05/19/2024 3:59 PM EDT POC, GLUCOSE Routine 05/19/2024 12:32 PM EDT POC, GLUCOSE Routine 05/19/2024 8:12 AM EDT CBC (WITH DIFF) Routine 05/19/2024 5:11 AM EDT PHOSPHORUS Routine 05/19/2024 5:11 AM EDT MAGNESIUM Routine 05/19/2024 5:11 AM EDT BASIC METABOLIC PANEL Routine 05/19/2024 5:11 AM EDT POC, GLUCOSE Routine 05/19/2024 3:27 AM EDT POC, GLUCOSE Routine 05/19/2024 12:02 AM EDT POC, GLUCOSE Routine 05/18/2024 8:05 PM EDT POC, GLUCOSE Routine 05/18/2024 6:14 PM EDT BASIC METABOLIC PANEL Routine 05/18/2024 5:04 PM EDT POC, GLUCOSE Routine 05/18/2024 11:45 AM EDT C DIFF SCREEN PERFORMABLE Routine 05/18/2024 11:31 AM EDT C. DIFFICILE SCREEN Routine 05/18/2024 1 1:31 AM EDT C DIFF PCR Routine 05/18/2024 11:31 AM EDT ELECTROLYTES, URINE, RANDOM Routine 05/18/2024 8:57 AM EDT CREATININE, URINE, RANDOM Routine 05/18/2024 8:57 AM EDT POC, GLUCOSE Routine 05/18/2024 8:34 AM EDT POC, GLUCOSE Routine 05/18/2024 4:10 AM EDT CBC (WITH DIFF) Routine 05/18/2024 4:01 AM EDT PHOSPHORUS Routine 05/18/2024 4:00 AM EDT MAGNESIUM Routine 05/18/2024 4:00 AM EDT BASIC METABOLIC PANEL Routine 05/18/2024 4:00 AM EDT POC, GLUCOSE Routine 05/17/2024 11:30 PM EDT POC, GLUCOSE Routine 05/17/2024 8:12 PM EDT POC, GLUCOSE Routine 05/17/2024 5:35 PM EDT POC, GLUCOSE Routine 05/17/2024 12:50 PM EDT POC, GLUCOSE Routine 05/17/2024 8:20 AM EDT VANCOMYCIN LEVEL, RANDOM Timed 05/17/2024 5:49 AM EDT CBC (WITH DIFF) Routine 05/17/2024 5:49 AM EDT PHOSPHORUS Routine 05/17/2024 5:49 AM EDT MAGNESIUM Routine 05/17/2024 5:49 AM EDT BASIC METABOLIC PANEL Routine 05/17/2024 5:49 AM EDT POC, GLUCOSE Routine 05/17/2024 3:54 AM EDT POCT GLUCOSE Routine 05/16/2024 11:46 PM EDT POCT GLUCOSE Routine 05/16/2024 9:06 PM EDT POCT GLUCOSE Routine 05/16/2024 8:04 PM EDT POCT GLUCOSE Routine 05/16/2024 4:51 PM EDT POCT GLUCOSE Routine 05/16/2024 12:48 PM EDT POCT GLUCOSE Routine 05/16/2024 8:45 AM EDT VANCOMYCIN LEVEL, RANDOM Timed 05/16/2024 5:14 AM EDT HEMOGRAM Routine 05/16/2024 5:14 AM EDT DIFFERENTIAL, AUTOMATED Routine 05/16/20 5:14 AM EDT CBC (WITH DIFF) Routine 05/16/2024 5:14 AM EDT PHOSPHORUS Routine 05/16/2024 5:14 AM EDT MAGNESIUM Routine 05/16/2024 5:14 AM EDT BASIC METABOLIC PANEL Routine 05/16/2024 5:14 AM EDT POCT GLUCOSE Routine 05/16/2024 3:53 AM EDT POCT GLUCOSE Routine 05/15/2024 11:41 PM EDT POCT GLUCOSE Routine 05/15/2024 10:32 PM EDT POCT GLUCOSE Routine 05/15/2024 7:53 PM EDT MRSA PCR SCREEN Routine 05/15/2024 4:15 PM EDT POCT GLUCOSE Routine 05/15/2024 3:20 PM EDT POCT GLUCOSE Routine 05/15/2024 11:39 AM EDT POCT GLUCOSE Routine 05/15/2024 8:02 AM EDT HEMOGRAM Routine 05/15/2024 5:12 AM EDT DIFFERENTIAL, AUTOMATED Routine 05/15/20 5:12 AM EDT CBC (WITH DIFF) Routine 05/15/2024 5:12 AM EDT PHOSPHORUS Routine 05/15/2024 5:12 AM EDT MAGNESIUM Routine 05/15/2024 5:12 AM EDT BASIC METABOLIC PANEL Routine 05/15/2024 5:12 AM EDT POCT GLUCOSE Routine 05/15/2024 4:55 AM EDT POCT GLUCOSE Routine 05/15/2024 2:51 AM EDT POCT GLUCOSE Routine 05/14/2024 9:03 PM EDT POCT GLUCOSE Routine 05/14/2024 7:15 PM EDT POCT GLUCOSE Routine 05/14/2024 4:47 PM EDT POCT GLUCOSE Routine 05/14/2024 1:21 PM EDT ANAEROBIC CULTURE Routine 05/14/2024 11: 33 AM EDT HC TISSUE HOMOGENIZATION FOR CULTURE Routine 05/14/2024 11:33 AM EDT TISSUE CULTURE Routine 05/14/2024 11:33 AM EDT SURGICAL PATHOLOGY REPORT Routine 05/14/2024 11:32 AM EDT SPECIMEN TO PATHOLOGY Routine 05/14/2024 11:32 AM EDT Amputation Metatarsal+Toe, Single ([id number]) 05/14/2024 10:37 AM EDT right second toe osteomyelitis AMPUTATION, TRANSMETATARSAL TOE, ONE TOE Routine 05/14/2024 9:19 AM EDT POCT GLUCOSE Routine 05/14/2024 7:58 AM EDT VANCOMYCIN LEVEL, RANDOM Timed 05/14/2024 5:01 AM EDT HEMOGRAM Routine 05/14/2024 5:01 AM EDT DIFFERENTIAL, AUTOMATED Routine 05/14/20 5:01 AM EDT CBC (WITH DIFF) Routine 05/14/2024 5:01 AM EDT PHOSPHORUS Routine 05/14/2024 5:01 AM EDT MAGNESIUM Routine 05/14/2024 5:01 AM EDT BASIC METABOLIC PANEL Routine 05/14/2024 5:01 AM EDT POCT GLUCOSE Routine 05/13/2024 8:41 PM EDT POCT GLUCOSE Routine 05/13/2024 6:06 PM EDT POCT GLUCOSE Routine 05/13/2024 11:12 AM EDT POCT GLUCOSE Routine 05/13/2024 7:47 AM EDT SCAN, PERIPHERAL BLOOD Routine 5:29 AM EDT HEMOGRAM Routine 05/13/2024 5:29 AM EDT DIFFERENTIAL, AUTOMATED Routine 05/13/20 5:29 AM EDT CBC (WITH DIFF) Routine 05/13/2024 5:29 AM EDT PHOSPHORUS Routine 05/13/2024 5:29 AM EDT MAGNESIUM Routine 05/13/2024 5:29 AM EDT BASIC METABOLIC PANEL Routine 05/13/2024 5:29 AM EDT POCT GLUCOSE Routine 05/12/2024 11:46 PM EDT POCT GLUCOSE Routine 05/12/2024 8:36 PM EDT POCT GLUCOSE Routine 05/12/2024 5:38 PM EDT VANCOMYCIN LEVEL, RANDOM Timed 05/12/2024 2:10 PM EDT POCT GLUCOSE Routine 05/12/2024 1:42 PM EDT DUPLEX FOR DVT, LEG, UNILAT Routine 05/12/2024 10:19 AM EDT Septic shock POCT GLUCOSE Routine 05/12/2024 9:00 AM EDT CRP, ACUTE INFLAMMATION Routine 05/12/20 4:45 AM EDT HEMOGRAM Routine 05/12/2024 4:45 AM EDT DIFFERENTIAL, AUTOMATED Routine 05/12/20 4:45 AM EDT SEDIMENTATION RATE Routine 05/12/2024 4: 45 AM EDT CBC (WITH DIFF) Routine 05/12/2024 4:45 AM EDT PHOSPHORUS Routine 05/12/2024 4:45 AM EDT MAGNESIUM Routine 05/12/2024 4:45 AM EDT BASIC METABOLIC PANEL Routine 05/12/2024 4:45 AM EDT ANGY, LEGS, MULTIPLE LEVELS Routine 05/12/2024 3:22 AM EDT Altered tissue perfusion POCT GLUCOSE Routine 05/11/2024 8:14 PM EDT VANCOMYCIN LEVEL, RANDOM Timed 05/11/2024 8:10 PM EDT POCT GLUCOSE Routine 05/11/2024 4:34 PM EDT POCT GLUCOSE Routine 05/11/2024 11:47 AM EDT POCT GLUCOSE Routine 05/11/2024 6:57 AM EDT VANCOMYCIN LEVEL, RANDOM Timed 05/11/2024 2:00 AM EDT HEMOGRAM Routine 05/11/2024 2:00 AM EDT DIFFERENTIAL, AUTOMATED Routine 05/11/20 2:00 AM EDT CBC (WITH DIFF) Routine 05/11/2024 2:00 AM EDT PHOSPHORUS Routine 05/11/2024 2:00 AM EDT MAGNESIUM Routine 05/11/2024 2:00 AM EDT BASIC METABOLIC PANEL Routine 05/11/2024 2:00 AM EDT POCT GLUCOSE Routine 05/10/2024 11:40 PM EDT POCT GLUCOSE Routine 05/10/2024 4:09 PM EDT POCT GLUCOSE Routine 05/10/2024 12:11 PM EDT VANCOMYCIN LEVEL, RANDOM Timed 05/10/2024 12:00 PM EDT POCT GLUCOSE Routine 05/10/2024 8:09 AM EDT LACTATE, WHOLE BLOOD Routine 05/10/2024 6:55 AM EDT PHOSPHORUS Routine 05/10/2024 6:55 AM EDT CK Routine 05/10/2024 6:55 AM EDT BASIC METABOLIC PANEL Routine 05/10/2024 6:55 AM EDT MRI FOOT WWO CONTRAST RIGHT Routine 05/10/2024 5:51 AM EDT UREA NITROGEN, URINE, RANDOM Routine 05/10/2024 4:15 AM EDT SODIUM, URINE, RANDOM Routine 05/10/2024 4:15 AM EDT CREATININE, URINE, RANDOM Routine 05/10/2024 4:15 AM EDT SKIN/SUP WOUND CULTURE Routine 2:56 AM EDT URINALYSIS DIPSTICK STAT 05/10/2024 2 :42 AM EDT XR CHEST ONE VIEW STAT 05/10/2024 2:3 7 AM EDT BLOOD CULTURE STAT 05/10/2024 2:32 AM EDT POCT GLUCOSE Routine 05/10/2024 2:30 AM EDT VANCOMYCIN LEVEL, RANDOM STAT 05/10/2024 2:20 AM EDT TYPE AND SCREEN VALIDITY Routine 05/10/2024 2:20 AM EDT ABORH RECHECK STATUS STAT 05/10/2024 2:20 AM EDT SCAN, PERIPHERAL BLOOD STAT 2:20 AM EDT HEMOGRAM STAT 05/10/2024 2:20 AM EDT DIFFERENTIAL, AUTOMATED STAT 05/10/20 2:20 AM EDT LACTATE, WHOLE BLOOD STAT 05/10/2024 2:20 AM EDT PROTHROMBIN TIME STAT 05/10/2024 2:20 AM EDT CBC (WITH DIFF) STAT 05/10/2024 2:20 AM EDT TYPE AND SCREEN ([facility]) STAT 05/10/2024 2:20 AM EDT PHOSPHORUS STAT 05/10/2024 2:20 AM EDT MAGNESIUM STAT 05/10/2024 2:20 AM EDT HEMOGLOBIN A1C Routine 05/10/2024 2:20 AM EDT HEPATIC FUNCTION PANEL Routine 2:20 AM EDT BASIC METABOLIC PANEL STAT 05/10/2024 2:20 AM EDT documented in this encounter Results * POC, GLUCOSE (05/23/2024 12:32 PM EDT) Glucometer, POC 137 65 - 199 mg/dL 05/23/2024 12:32 PM EDT [facility] Comment:Supplemental ranges: <140 mg/dL before meals <180 mg/dL all other times of the day. Blood CAPILLARY BLOOD / Unknown 05/23/2024 12:32 PM EDT 05/23/2024 12:32 PM EDT Saba Speras MD POINT OF CARE TEST ORDERABLES [facility] [place] [place] [address] * (ABNORMAL) Basic Metabolic Panel (05/23/2024 9:46 AM EDT) Glucose 142 65 - 199 mg/dL 05/23/2024 11:27 AM EDT [facility] Comment:Glucose Concentratio n >=200 mg/dL plus symptoms is consistent with Diabetes Mellitus. Blood Urea Nitrogen 83(H) 10 - 20 mg/dL 05/23/2024 11:27 AM [facility] Creatinine 2.64(H) 0.80 - 1.50 mg/dL 05/23/2024 11:27 AM [facility] Sodium 140 135 - 145 mMol/L 05/23/2024 11:27 AM [facility] Potassium 5.2(H) 3.5 - 5.0 mMol/L 05/23/2024 11:27 AM [facility] Chloride 111(H) 98 - 107 mMol/L 05/23/2024 11:27 AM [facility] Carbon Dioxide 20(L) 22 - 31 mMol/L 05/23/2024 11:27 AM [facility] Anion Gap 9 5 - 15 mMol/L 05/23/2024 11:27 AM [facility] Calcium 9.3 8.5 - 10.5 mg/dL 05/23/2024 11:27 AM [facility] Est Glomerular Filtration Rate - Male 25 mL/min/1. 73 m?? 05/23/2024 11:27 AM [facility] Comment: This patient's estimated GFR was [...] 9:46 AM EDT 05/23/2024 10:01 AM EDT Saba Spears MD CHEMISTRY ORDERABLE S [facility] [place] [address] * (ABNORMAL) CBC (with Diff) (05/23/2024 9:46 AM EDT) White Blood Cell 12.66(H) 4.00 - 9.50 x10(3)/mc L 05/23/2024 10:52 AM EDT [facility] Red Blood Cell 2.56(L) 4.58 - 5.54 x10(6)/mc L 05/23/2024 10:52 AM EDT [facility] Hemoglobin 7.7(L) 13.7 - 16.5 g/dL 05/23/2024 10:52 AM [facility] Hematocrit 24.3(L) 40.5 - 48.5 % 05/23/2024 10:52 AM [facility] Mean Cell Volume 94.9(H) 82.9 - 93.1 fL 05/23/2024 10:52 AM [facility] Mean Cell Hemoglobin 30.1 27.5 - 32.1 pg 05/23/2024 10:52 AM [facility] Mean Cell Hemoglobin Concentration 31.7(L) 32.0 - 35.7 g/dL 05/23/2024 10:52 AM [facility] Platelet 370(H) 145 - 357 x10(3)/mc L 05/23/2024 10:52 AM [facility] Mean Platelet Volume 11.6 7.6 - 12.9 fL 05/23/2024 10:52 AM [facility] RDW Standard Deviation 57.1(H) 36.0 - 45.0 fL 05/23/2024 10:52 AM [facility] RDW coefficient of variation 16.9(H) 11.4 - 13.8 % 05/23/2024 10:52 AM [facility] NRBC% auto 0.0 % 05/23/2024 10:52 AM [facility] NRBC Absolute 0.00 0.00 - 0.00 x10(3)/mc L 05/23/2024 10:52 AM [facility] Neutrophil % 81.6 % 05/23/2024 10:52 AM [facility] Neutrophil Absolute 10.34(H) 1.70 - 6.10 x10(3)/mc L 05/23/2024 10:52 AM [facility] Lymph % 5.1 % 05/23/2024 10:52 AM [facility] Lymph Absolute 0.64(L) 0.90 - 3.20 x10(3)/mc L 05/23/2024 10:52 AM [facility] Monocyte % 10.7 % 05/23/2024 10:52 AM [facility] Monocyte Absolute 1.35(H) 0.30 - 0.90 x10(3)/mc L 05/23/2024 10:52 AM [facility] Eos % 1.7 % 05/23/2024 10:52 AM [facility] Eos Absolute 0.22 0.00 - 0.40 x10(3)/mc L 05/23/2024 10:52 AM [facility] Basophil % 0.3 % 05/23/2024 10:52 AM [facility] Baso Absolute 0.04 0.00 - 0.10 x10(3)/mc L 05/23/2024 10:52 AM [facility] Immature Gran % 0.6 % 10:52 AM [facility] Immature Gran Absolute 0.07(H) 0.00 - 0.04 x10(3)/mc L 05/23/2024 10:52 AM [facility] Blood VENOUS BLOOD SPECIMEN / Unknown IP Care Team Draw / Unknown 05/23/2024 9:46 AM EDT 05/23/2024 10:01 AM EDT Saba Spears MD HEMATOLOGY ORDERABL ES Performing Organization Address City/[facility]/[place] Co de Phone Number [facility] [place] [place] [address] * POC, GLUCOSE (05/23/2024 7:44 AM EDT) Glucometer, POC 127 65 - 199 mg/dL 05/23/2024 7:44 AM EDT [facility] Comment:Supplemental ranges: <140 mg/dL before meals <180 mg/dL all other times of the day. Blood CAPILLARY BLOOD / Unknown 05/23/2024 7:44 AM EDT 05/23/2024 7:45 AM EDT Saba Spears MD POINT OF CARE TEST ORDERABLES Performing Organization Address [facility]/[place] Co de Phone Number [facility] [place] [address] * Prepare RBC (05/23/2024 3:49 AM EDT) Status Information Transfused [facility] Product Identification RBC [facility] Unit Number [id number] [facility] Product Code [id number] [facility] Unit Blood Type OPOS [facility] Specimen Expiration Date [id number] [facility] Volulme 350 [facility] Issue Date / Time [id number] [facility] Blood 05/22/2024 12: 42 PM EDT Saba Spears MD BLOOD BANK PRODUCT ORDERABLES Performing Organization Address City/[facility]/ZIP Co de Phone Number [facility] [place] [address] * POC, GLUCOSE (05/23/2024 3:49 AM EDT) Glucometer, POC 152 65 - 199 mg/dL 05/23/2024 3:49 AM EDT [facility] Comment:Supplemental ranges: <140 mg/dL before meals <180 mg/dL all other times of the day. Blood CAPILLARY BLOOD / Unknown 05/23/2024 3:49 AM EDT 05/23/2024 3:49 AM EDT Saba Spears MD POINT OF CARE TEST ORDERABLES Performing Organization Address [facility]/[place] Co de Phone Number [facility] [place] [address] * POC, GLUCOSE (05/23/2024 1:26 AM EDT) Glucometer, POC 138 65 - 199 mg/dL 05/23/2024 1:26 AM EDT [facility] Comment:Supplemental ranges: <140 mg/dL before meals <180 mg/dL all other times of the day. Blood CAPILLARY BLOOD / Unknown 05/23/2024 1:26 AM EDT 05/23/2024 1:26 AM EDT Saba Spears MD POINT OF CARE TEST ORDERABLES Performing Organization Address City/[facility]/[place] Co de Phone Number [facility] [place] [address] * (ABNORMAL) Scan, Peripheral Blood (05/23/2024 1:19 AM EDT) RBC Morphology Abnormal 05/23/2024 3:44 AM EDT [facility] Platelet Estimate Increased(A) Normal 05/23/2024 3:44 AM EDT [facility] Ovalocytes 1-5 /HPF 05/23/2024 3:44 AM EDT [facility] [place] cells 1-5 /HPF 05/23/2024 3:44 AM EDT [facility] Blood VENOUS BLOOD SPECIMEN / Unknown IP Care Team Draw / Unknown 05/23/2024 1:19 AM EDT 05/23/2024 2:05 AM EDT Mary De La Fuente MD HEMATOLOGY ORDERAB LES Performing Organization Address [facility] Co de Phone Number [facility] [place] [address] * Magnesium (05/23/2024 1:19 AM EDT) Magnesium 0.86 0.69 - 1.07 mMol/L 05/23/2024 2:40 AM EDT [facility] Blood VENOUS BLOOD SPECIMEN / Unknown IP Care Team Draw / Unknown 05/23/2024 1:19 AM EDT 05/23/2024 2:05 AM EDT Mary De La Fuente MD CHEMISTRY ORDERABL ES Performing Organization Address [facility] Co de Phone Number [facility] [place] [address] * (ABNORMAL) Phosphorus (05/23/2024 1:19 AM EDT) Phosphorus 5.8(H) 2.5 - 4.5 mg/dL 05/23/2024 2:40 AM EDT [facility] Blood VENOUS BLOOD SPECIMEN / Unknown IP Care Team Draw / Unknown 05/23/2024 1:19 AM EDT 05/23/2024 2:05 AM EDT Mary De La Fuente MD CHEMISTRY ORDERABL ES Performing Organization Address [facility] Co de Phone Number [facility] [place] [address] * (ABNORMAL) Basic Metabolic Panel (non-fasting) (05/23/2024 1:19 AM EDT) Glucose 158 65 - 199 mg/dL 05/23/2024 3:34 AM EDT [facility] Comment:Glucose Concentratio n >=200 mg/dL plus symptoms is consistent with Diabetes Mellitus. Blood Urea Nitrogen 85(H) 10 - 20 mg/dL 05/23/2024 3:34 AM EDT [facility] Creatinine 2.70(H) 0.80 - 1.50 mg/dL 05/23/2024 3:34 AM EDT [facility] Sodium 139 135 - 145 mMol/L 05/23/2024 3:34 AM [facility] Potassium 4.9 3.5 - 5.0 mMol/L 05/23/2024 3:34 AM [facility] Chloride 108(H) 98 - 107 mMol/L 05/23/2024 3:34 AM [facility] Carbon Dioxide 20(L) 22 - 31 mMol/L 05/23/2024 3:34 AM [facility] Anion Gap 11 5 - 15 mMol/L 05/23/2024 3:34 AM [facility] Calcium 9.1 8.5 - 10.5 mg/dL 05/23/2024 3:34 AM [facility] Est Glomerular Filtration Rate - Male 25 mL/min/1. 73 m?? 05/23/2024 3:34 AM [facility] Comment: This patient's estimated GFR was [...] eGFR. Link: eGFR Calculator [employer] Fasting Status 05/23/2024 3:34 AM T [facility] Blood VENOUS BLOOD SPECIMEN / Unknown IP Care Team Draw / Unknown 05/23/2024 1:19 AM EDT 05/23/2024 2:05 AM EDT Mary De La Fuente MD CHEMISTRY ORDERABL ES [facility] [place] [address] * (ABNORMAL) CBC (with Diff) (05/23/2024 1:19 AM EDT) [facility] White Blood Cell 12.66(H) 4.00 - 9.50 x10(3)/mc L 05/23/2024 3:44 AM [facility] Red Blood Cell 2.61(L) 4.58 - 5.54 x10(6)/mc L 05/23/2024 3:44 AM [facility] Hemoglobin 7.8(L) 13.7 - 16.5 g/dL 05/23/2024 3:44 AM [facility] Hematocrit 24.3(L) 40.5 - 48.5 % 05/23/2024 3:44 AM [facility] Mean Cell Volume 93.1 82.9 - 93.1 fL 05/23/2024 3:44 AM [facility] Mean Cell Hemoglobin 29.9 27.5 - 32.1 pg 05/23/2024 3:44 AM [facility] Mean Cell Hemoglobin Concentration 32.1 32.0 - 35.7 g/dL 05/23/2024 3:44 AM [facility] Platelet 381(H) 145 - 357 x10(3)/mc L 05/23/2024 3:44 AM [facility] Mean Platelet Volume 11.4 7.6 - 12.9 fL 05/23/2024 3:44 AM [facility] RDW Standard Deviation 55.1(H) 36.0 - 45.0 fL 05/23/2024 3:44 AM [facility] RDW coefficient of variation 16.5(H) 11.4 - 13.8 % 05/23/2024 3:44 AM [facility] NRBC% auto 0.0 % 05/23/2024 3:44 AM [facility] NRBC Absolute 0.00 0.00 - 0.00 x10(3)/mc L 05/23/2024 3:44 AM [facility] Neutrophil % 79.4 % 05/23/2024 3:44 AM [facility] Comment:This is an appended report. These results have been appended to a previously preliminary verified report. Neutrophil Absolute 10.06(H) 1.70 - 6.10 x10(3)/mc L 05/23/2024 3:44 AM [facility] Comment:This is an appended report. These results have been appended to a previously preliminary verified report. Lymph % 5.8 % 05/23/2024 3:44 AM [facility] Comment:This is an appended report. These results have been appended to a previously preliminary verified report. Lymph Absolute 0.73(L) 0.90 - 3.20 x10(3)/mc L 05/23/2024 3:44 AM [facility] Comment:This is an appended report. These results have been appended to a previously preliminary verified report. Monocyte % 12.1 % 05/23/2024 3:44 AM [facility] Comment:This is an appended report. These results have been appended to a previously preliminary verified report. Monocyte Absolute 1.53(H) 0.30 - 0.90 x10(3)/mc L 05/23/2024 3:44 AM [facility] Comment:This is an appended report. These results have been appended to a previously preliminary verified report. Eos % 1.9 % 05/23/2024 3:44 AM [facility] Comment:This is an appended report. These results have been appended to a previously preliminary verified report. Eos Absolute 0.24 0.00 - 0.40 x10(3)/mc L 05/23/2024 3:44 AM [facility] Comment:This is an appended report. These results have been appended to a previously preliminary verified report. Basophil % 0.3 % 05/23/2024 3:44 AM [facility] Comment:This is an appended report. These results have been appended to a previously preliminary verified report. Baso Absolute 0.04 0.00 - 0.10 x10(3)/mc L 05/23/2024 3:44 AM EDT [facility] Comment:This is an appended report. These results have been appended to a previously preliminary verified report. Immature Gran % 0.5 % 3:44 AM EDT [facility] Comment:This is an appended report. These results have been appended to a previously preliminary verified report. Immature Gran Absolute 0.06(H) 0.00 - 0.04 x10(3)/mc L 05/23/2024 3:44 AM EDT [facility] Comment:This is an appended report. These results have been appended to a previously preliminary verified report. Blood VENOUS BLOOD SPECIMEN / Unknown IP Care Team Draw / Unknown 05/23/2024 1:19 AM EDT 05/23/2024 2:05 AM EDT Mary De La Fuente MD HEMATOLOGY ORDERAB LES [facility] [place] [address] * POC, GLUCOSE (05/22/2024 8:21 PM EDT) Glucometer, POC 152 65 - 199 mg/dL 05/22/2024 8:21 PM EDT [facility] Comment:Supplemental ranges: <140 mg/dL before meals <180 mg/dL all other times of the day. Blood CAPILLARY BLOOD / Unknown 05/22/2024 8:21 PM EDT 05/22/2024 8:21 PM EDT Saba Spears MD POINT OF CARE TEST ORDERABLES Performing Organization Address City/[facility]/ZIP Co de Phone Number [facility] [place] [address] * POC, GLUCOSE (05/22/2024 6:20 PM EDT) Glucometer, POC 130 65 - 199 mg/dL 05/22/2024 6:20 PM EDT [facility] Comment:Supplemental ranges: <140 mg/dL before meals <180 mg/dL all other times of the day. Blood CAPILLARY BLOOD / Unknown 05/22/2024 6:20 PM EDT 05/22/2024 6:21 PM EDT Saba Speras MD POINT OF CARE TEST ORDERABLES Performing Organization Address [facility]/State/ZIP Co de Phone Number [facility] [place] [address] * Transfuse RBC (05/22/2024 2:45 PM EDT) Saba Spears MD NURSING TREATMENT O RDERABLES - BLOOD ADMIN * UPPER GI ENDOSCOPY (05/22/2024 12:48 PM EDT) [facility] UPPER GI ENDOSCOPY [facility] ___ Procedure Date: 05/22/2024 12:48 PM ? Patient Name: Jossy Shanks ? N: [id number] ? Date of : 1955 ? Age: 69 ? Order #: [id number] ? Instrument Name: [id number] ? ___ Procedure: ? Upper GI endoscopy [...] (PATIENT HISTORY FOUND) (05/22/2024 11:18 AM EDT) [facility] Recheck Progress Complete 05/22/2024 1:01 PM EDT [facility] Blood VENOUS BLOOD SPECIMEN / Unknown IP Care Team Draw / Unknown 05/22/2024 11:18 AM EDT 05/22/2024 11:27 AM EDT Saba Spears MD BLOOD BANK LAB FADY GAO [facility] [place] [address] * Type and screen ([facility]CGP/TARA) (05/22/2024 11:18 AM EDT) Pathologist [facility] [place] [facility] Type O POSITIVE 05/22/2024 12:31 PM EDT [facility] PATIENT HISTORY Found 05/22/2024 12:31 PM EDT [facility] Expires at [id number] on: 05-22-2024 05/22/2024 12:31 PM EDT [facility] ANTIBODY SCREEN AUTOMATED Negative 05/22/2024 12:31 PM EDT [facility] T&S only valid at [facility] 05/22/2024 12:31 PM EDT [facility] Blood VENOUS BLOOD SPECIMEN / Unknown IP Care Team Draw / Unknown 05/22/2024 11:18 AM EDT 05/22/2024 11:27 AM EDT Narrative [facility] - 05/22/2024 12:31 PM EDT This Type and Screen result is only valid at the [facility] Saba Spears MD BLOOD BANK LAB ORDE RABLES [facility] [place] [address] * (ABNORMAL) Hemoglobin and Hematocrit, blood (05/22/2024 11:18 AM EDT) Pathologist [facility] [place] Hemoglobin 6.9(L) 13.7 - 16.5 g/dL 05/22/2024 12:02 PM EDT [facility] Hematocrit 21.4(L) 40.5 - 48.5 % 05/22/2024 12:02 PM EDT [facility] Blood VENOUS BLOOD SPECIMEN / Unknown IP Care Team Draw / Unknown 05/22/2024 11:18 AM EDT 05/22/2024 11:36 AM EDT Saba Spears MD HEMATOLOGY ORDERABL ES [facility] [place] [address] * POC, GLUCOSE (05/22/2024 11:14 AM EDT) Glucometer, POC 126 65 - 199 mg/dL 05/22/2024 11:17 AM EDT [facility] Comment:Supplemental ranges: <140 mg/dL before meals <180 mg/dL all other times of the day. Blood CAPILLARY BLOOD / Unknown 05/22/2024 11:14 AM EDT 05/22/2024 11:18 AM EDT Saba Spears MD POINT OF CARE TEST ORDERABLES Performing Organization Address City/[facility]/ZIP Co de Phone Number [facility] [place] [address] * POC, GLUCOSE (05/22/2024 8:07 AM EDT) Glucometer, POC 132 65 - 199 mg/dL 05/22/2024 8:08 AM EDT [facility] Comment:Supplemental ranges: <140 mg/dL before meals <180 mg/dL all other times of the day. Blood CAPILLARY BLOOD / Unknown 05/22/2024 8:07 AM EDT 05/22/2024 8:08 AM EDT Saba Spears MD POINT OF CARE TEST ORDERABLES [facility] [address] * (ABNORMAL) Hepatic Function Panel (05/22/2024 5:18 AM EDT) Albumin 2.6(L) 3.2 - 5.2 g/dL 05/22/2024 9:50 AM EDT [facility] Aspartate Aminotransferase 18 <=39 unit/L 05/22/2024 9:50 AM EDT [facility] Alanine Aminotransferase 42 0 - 55 unit/L 05/22/2024 9:50 AM EDT [facility] Alkaline Phosphatase 84 40 - 130 unit/L 05/22/2024 9:50 AM EDT [facility] Bilirubin, Total <0.2 <=1.3 mg/dL 05/22/2024 9:50 AM EDT [facility] Bilirubin, Direct <0.2 0.0 - 0.3 mg/dL 05/22/2024 9:50 AM EDT [facility] Protein, Total 6.0(L) 6.1 - 8.0 g/dL 05/22/2024 9:50 AM EDT [facility] Blood VENOUS BLOOD SPECIMEN / Unknown IP Care Team Draw / Unknown 05/22/2024 5:18 AM EDT 05/22/2024 5:45 AM EDT Saba Spears MD CHEMISTRY ORDERABLE S Performing Organization Address City/[facility]/ZIP Co de Phone Number [facility] [place] [address] * Magnesium (05/22/2024 5:18 AM EDT) Magnesium 0.93 0.69 - 1.07 mMol/L 05/22/2024 6:16 AM EDT [facility] Blood VENOUS BLOOD SPECIMEN / Unknown IP Care Team Draw / Unknown 05/22/2024 5:18 AM EDT 05/22/2024 5:45 AM EDT Mary De La Fuente MD CHEMISTRY ORDERABL ES Performing Organization Address City/[facility]/ZIP Co de Phone Number [facility] [place] [address] * (ABNORMAL) Phosphorus (05/22/2024 5:18 AM EDT) Phosphorus 5.8(H) 2.5 - 4.5 mg/dL 05/22/2024 6:16 AM EDT [facility] Blood VENOUS BLOOD SPECIMEN / Unknown IP Care Team Draw / Unknown 05/22/2024 5:18 AM EDT 05/22/2024 5:45 AM EDT Mary De La Fuente MD CHEMISTRY ORDERABL ES [facility] [place] [address] * (ABNORMAL) Basic Metabolic Panel (05/22/2024 5:18 AM EDT) Glucose 121 65 - 199 mg/dL 05/22/2024 6:16 AM T [facility] Comment:Glucose Concentratio n >=200 mg/dL plus symptoms is consistent with Diabetes Mellitus. Blood Urea Nitrogen 97(H) 10 - 20 mg/dL 05/22/2024 6:16 AM [facility] Creatinine 2.77(H) 0.80 - 1.50 mg/dL 05/22/2024 6:16 AM [facility] Sodium 138 135 - 145 mMol/L 05/22/2024 6:16 AM [facility] Potassium 5.1(H) 3.5 - 5.0 mMol/L 05/22/2024 6:16 AM [facility] Chloride 110(H) 98 - 107 mMol/L 05/22/2024 6:16 AM [facility] Carbon Dioxide 20(L) 22 - 31 mMol/L 05/22/2024 6:16 AM [facility] Anion Gap 8 5 - 15 mMol/L 05/22/2024 6:16 AM [facility] Calcium 9.4 8.5 - 10.5 mg/dL 05/22/2024 6:16 AM [facility] Est Glomerular Filtration Rate - Male 24 mL/min/1. 73 m?? 05/22/2024 6:16 AM [facility] Comment: This patient's estimated GFR was [...] eGFR. Link: eGFR Calculator [employer] Fasting Status No 05/22/2024 6:16 AM EDT [facility] Blood VENOUS BLOOD SPECIMEN / Unknown IP Care Team Draw / Unknown 05/22/2024 5:18 AM EDT 05/22/2024 5:45 AM EDT Mary De La Fuente MD CHEMISTRY ORDERABL ES [facility] [place] [address] * (ABNORMAL) CBC (with Diff) (05/22/2024 5:18 AM EDT) White Blood Cell 14.70(H) 4.00 - 9.50 x10(3)/mc L 05/22/2024 5:52 AM [facility] Red Blood Cell 2.37(L) 4.58 - 5.54 x10(6)/mc L 05/22/2024 5:52 AM [facility] Hemoglobin 7.2(L) 13.7 - 16.5 g/dL 05/22/2024 5:52 AM [facility] Hematocrit 22.1(L) 40.5 - 48.5 % 05/22/2024 5:[facility] Mean Cell Volume 93.2(H) 82.9 - 93.1 fL 05/22/2024 5:52 AM [facility] Mean Cell Hemoglobin 30.4 27.5 - 32.1 pg 05/22/2024 5:52 AM [facility] Mean Cell Hemoglobin Concentration 32.6 32.0 - 35.7 g/dL 05/22/2024 5:52 AM [facility] Platelet 366(H) 145 - 357 x10(3)/mc L 05/22/2024 5:52 AM [facility] Mean Platelet Volume 10.9 7.6 - 12.9 fL 05/22/2024 5:52 AM [facility] RDW Standard Deviation 54.6(H) 36.0 - 45.0 fL 05/22/2024 5:52 AM [facility] RDW coefficient of variation 16.3(H) 11.4 - 13.8 % 05/22/2024 5:52 AM [facility] NRBC% auto 0.0 % 05/22/2024 5:52 AM [facility] NRBC Absolute 0.00 0.00 - 0.00 x10(3)/mc L 05/22/2024 5:52 AM [facility] Neutrophil % 83.2 % 05/22/2024 5:52 AM [facility] Neutrophil Absolute 12.22(H) 1.70 - 6.10 x10(3)/mc L 05/22/2024 5:52 AM [facility] Lymph % 4.4 % 05/22/2024 5:52 AM [facility] Lymph Absolute 0.65(L) 0.90 - 3.20 x10(3)/mc L 05/22/2024 5:52 AM [facility] Monocyte % 9.7 % 05/22/2024 5:52 AM [facility] Monocyte Absolute 1.43(H) 0.30 - 0.90 x10(3)/mc L 05/22/2024 5:52 AM [facility] Eos % 1.9 % 05/22/2024 5:52 AM [facility] Eos Absolute 0.28 0.00 - 0.40 x10(3)/mc L 05/22/2024 5:52 AM [facility] Basophil % 0.2 % 05/22/2024 5:52 AM [facility] Baso Absolute 0.03 0.00 - 0.10 x10(3)/mc L 05/22/2024 5:52 AM EDT [facility] Immature Gran % 0.6 % 5:52 AM EDT [facility] Immature Gran Absolute 0.09(H) 0.00 - 0.04 x10(3)/mc L 05/22/2024 5:52 AM EDT [facility] Blood VENOUS BLOOD SPECIMEN / Unknown IP Care Team Draw / Unknown 05/22/2024 5:18 AM EDT 05/22/2024 5:45 AM EDT Mary De La Fuente MD HEMATOLOGY ORDERAB LES Performing Organization Address City/[facility]/ZIP Co de Phone Number [facility] [place] [address] * POC, GLUCOSE (05/22/2024 3:50 AM EDT) Glucometer, POC 140 65 - 199 mg/dL 05/22/2024 3:50 AM EDT [facility] Comment:Supplemental ranges: <140 mg/dL before meals <180 mg/dL all other times of the day. Blood CAPILLARY BLOOD / Unknown 05/22/2024 3:50 AM EDT 05/22/2024 3:50 AM EDT Saba Spears MD POINT OF CARE TEST ORDERABLES [facility] [place] [address] * Scan Doc: Lab (05/22/2024 12:00 AM EDT) Narrative 05/22/2024 12:00 AM EDT Ordered by an unspecified provider. Scanning Provider MEDIA MGR SCAN EXT O RDR/RSLT * POC, GLUCOSE (05/21/2024 11:28 PM EDT) Glucometer, POC 174 65 - 199 mg/dL 05/21/2024 11:28 PM EDT [facility] Comment:Supplemental ranges: <140 mg/dL before meals <180 mg/dL all other times of the day. Blood CAPILLARY BLOOD / Unknown 05/21/2024 11:28 PM EDT 05/21/2024 11:28 PM EDT Saba Spears MD POINT OF CARE TEST ORDERABLES Performing Organization Address City/[facility]/ZIP Co de Phone Number [facility] [place] [address] * POC, GLUCOSE (05/21/2024 7:49 PM EDT) Glucometer, POC 161 65 - 199 mg/dL 05/21/2024 7:49 PM EDT [facility] Comment:Supplemental ranges: <140 mg/dL before meals <180 mg/dL all other times of the day. Blood CAPILLARY BLOOD / Unknown 05/21/2024 7:49 PM EDT 05/21/2024 7:49 PM EDT Saba Spears MD POINT OF CARE TEST ORDERABLES Performing Organization Address City/[facility]/[place] Co de Phone Number [facility] [place] [address] * POC, GLUCOSE (05/21/2024 5:18 PM EDT) Glucometer, POC 152 65 - 199 mg/dL 05/21/2024 5:18 PM EDT [facility] Comment:Supplemental ranges: <140 mg/dL before meals <180 mg/dL all other times of the day. Blood CAPILLARY BLOOD / Unknown 05/21/2024 5:18 PM EDT 05/21/2024 5:18 PM EDT Saba Spears MD POINT OF CARE TEST ORDERABLES [facility] [place] [address] * (ABNORMAL) Hemogram (05/21/2024 3:00 PM EDT) White Blood Cell 14.25(H) 4.00 - 9.50 x10(3)/mc L 05/21/2024 3:41 PM EDT [facility] Red Blood Cell 2.61(L) 4.58 - 5.54 x10(6)/mc L 05/21/2024 3:41 PM EDT [facility] Hemoglobin 7.8(L) 13.7 - 16.5 g/dL 05/21/2024 3:41 PM [facility] Hematocrit 24.5(L) 40.5 - 48.5 % 05/21/2024 3:41 PM [facility] Mean Cell Volume 93.9(H) 82.9 - 93.1 fL 05/21/2024 3:41 PM [facility] Mean Cell Hemoglobin 29.9 27.5 - 32.1 pg 05/21/2024 3:41 PM [facility] Mean Cell Hemoglobin Concentration 31.8(L) 32.0 - 35.7 g/dL 05/21/2024 3:41 PM [facility] Platelet 456(H) 145 - 357 x10(3)/mc L 05/21/2024 3:41 PM [facility] Mean Platelet Volume 11.1 7.6 - 12.9 fL 05/21/2024 3:41 PM [facility] RDW Standard Deviation 55.2(H) 36.0 - 45.0 fL 05/21/2024 3:41 PM [facility] RDW coefficient of variation 16.1(H) 11.4 - 13.8 % 05/21/2024 3:41 PM [facility] NRBC% auto 0.0 % 05/21/2024 3:41 PM [facility] NRBC Absolute 0.00 0.00 - 0.00 x10(3)/mc L 05/21/2024 3:41 PM EDT [facility] Blood VENOUS BLOOD SPECIMEN / Unknown IP Care Team Draw / Unknown 05/21/2024 3:00 PM EDT 05/21/2024 3:36 PM EDT Saba Spears MD HEMATOLOGY ORDERABL ES Performing Organization Address [facility] Co de Phone Number [facility] [place] [address] * POC, GLUCOSE (05/21/2024 12:39 PM EDT) [facility] Signature Glucometer, POC 144 65 - 199 mg/dL 05/21/2024 12:39 PM EDT [facility] [facility] Comment:Supplemental ranges: <140 mg/dL before meals <180 mg/dL all other times of the day. Blood CAPILLARY BLOOD / Unknown 05/21/2024 12:39 PM EDT 05/21/2024 12:39 PM EDT Saba Spears MD POINT OF CARE TEST ORDERABLES Performing Organization Address [facility] Co de Phone Number [facility] [place] [address] * IR Tunneled Central Venous Access Non-Dialysis (05/21/2024 12:11 PM EDT) Anatomical Region Laterality Modality Chest, Vascular X-Ray Angiograph y Narrative 05/21/2024 5:12 PM EDT Table formatting from the original result was not included. Images from the original result were not included. IR PROCEDURE NOTE Procedure: Tunneled central venous catheter placement. Indication for Procedure: Per Jossy Saldana is a 69 y.o. 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 ??[address] [place] injection compatible single lumen catheter was [...] as documented by the IR Nurse. ? Saba Spears MD IMG IR ORDERABLES * POC, GLUCOSE (05/21/2024 9:12 AM EDT) [facility] Signature Glucometer, POC 144 65 - 199 mg/dL 05/21/2024 9:12 AM EDT [facility] Comment:Supplemental ranges: <140 mg/dL before meals <180 mg/dL all other times of the day. Blood CAPILLARY BLOOD / Unknown 05/21/2024 9:12 AM EDT 05/21/2024 9:12 AM EDT Saba Spears MD POINT OF CARE TEST ORDERABLES Performing Organization Address City/[facility]/ZIP Co de Phone Number [facility] [place] [address] * POC, GLUCOSE (05/21/2024 8:32 AM EDT) Glucometer, POC 135 65 - 199 mg/dL 05/21/2024 8:32 AM EDT [facility] Comment:Supplemental ranges: <140 mg/dL before meals <180 mg/dL all other times of the day. Blood CAPILLARY BLOOD / Unknown 05/21/2024 8:32 AM EDT 05/21/2024 8:32 AM EDT Saba Spears MD POINT OF CARE TEST ORDERABLES Performing Organization Address City/[facility] Co de Phone Number [facility] [place] [address] * (ABNORMAL) Hemogram (05/21/2024 8:27 AM EDT) White Blood Cell 15.77(H) 4.00 - 9.50 x10(3)/mc L 05/21/2024 8:54 AM EDT [facility] Red Blood Cell 2.47(L) 4.58 - 5.54 x10(6)/mc L 05/21/2024 8:54 AM EDT [facility] Hemoglobin 7.5(L) 13.7 - 16.5 g/dL 05/21/2024 8:54 AM EDT [facility] Hematocrit 23.0(L) 40.5 - 48.5 % 05/21/2024 8:54 AM EDT [facility] Mean Cell Volume 93.1 82.9 - 93.1 fL 05/21/2024 8:54 AM EDT [facility] Mean Cell Hemoglobin 30.4 27.5 - 32.1 pg 05/21/2024 8:54 AM EDT [facility] Mean Cell Hemoglobin Concentration 32.6 32.0 - 35.7 g/dL 05/21/2024 8:54 AM EDT [facility] Platelet 398(H) 145 - 357 x10(3)/mc L 05/21/2024 8:54 AM EDT [facility] Mean Platelet Volume 10.8 7.6 - 12.9 fL 05/21/2024 8:54 AM EDT [facility] RDW Standard Deviation 54.6(H) 36.0 - 45.0 fL 05/21/2024 8:54 AM EDT [facility] RDW coefficient of variation 16.1(H) 11.4 - 13.8 % 05/21/2024 8:54 AM EDT [facility] NRBC% auto 0.0 % 05/21/2024 8:54 AM EDT [facility] NRBC Absolute 0.00 0.00 - 0.00 x10(3)/mc L 05/21/2024 8:54 AM EDT [facility] Blood VENOUS BLOOD SPECIMEN / Unknown IP Care Team Draw / Unknown 05/21/2024 8:27 AM EDT 05/21/2024 8:42 AM EDT Saba Spears MD HEMATOLOGY ORDERABL ES [facility] [place] [address] * (ABNORMAL) CRP, acute inflammation (05/21/2024 4:58 AM EDT) C-Reactive Protein 14.1(H) <=4.9 mg/L 05/21/2024 10:05 AM EDT [facility] Blood VENOUS BLOOD SPECIMEN / Unknown IP Care Team Draw / Unknown 05/21/2024 4:58 AM EDT 05/21/2024 5:17 AM EDT Saba Spears MD CHEMISTRY ORDERABLE S Performing Organization Address [facility]/ZIP Co de Phone Number [facility] [place] [address] * Magnesium (05/21/2024 4:58 AM EDT) Magnesium 0.99 0.69 - 1.07 mMol/L 05/21/2024 5:51 AM EDT [facility] Blood VENOUS BLOOD SPECIMEN / Unknown IP Care Team Draw / Unknown 05/21/2024 4:58 AM EDT 05/21/2024 5:17 AM EDT Mary De La Fuente MD CHEMISTRY ORDERABL ES Performing Organization Address [facility] Co de Phone Number [facility] [place] [address] * (ABNORMAL) Phosphorus (05/21/2024 4:58 AM EDT) Phosphorus 6.2(H) 2.5 - 4.5 mg/dL 05/21/2024 5:51 AM EDT [facility] Blood VENOUS BLOOD SPECIMEN / Unknown IP Care Team Draw / Unknown 05/21/2024 4:58 AM EDT 05/21/2024 5:17 AM EDT Mary De La Fuente MD CHEMISTRY ORDERABL ES Performing Organization Address [facility]/ZIP Co de Phone Number [facility] [place] [address] * (ABNORMAL) Basic Metabolic Panel (05/21/2024 4:58 AM EDT) Glucose 151 65 - 199 mg/dL 05/21/2024 5:51 AM EDT [facility] Comment:Glucose Concentratio n >=200 mg/dL plus symptoms is consistent with Diabetes Mellitus. Blood Urea Nitrogen 110(H) 10 - 20 mg/dL 05/21/2024 5:51 AM EDT [facility] Creatinine 3.04(H) 0.80 - 1.50 mg/dL 05/21/2024 5:51 AM EDT [facility] Sodium 138 135 - 145 mMol/L 05/21/2024 [facility] Potassium 5.1(H) 3.5 - 5.0 mMol/L 05/21/2024 5:[facility] Chloride 111(H) 98 - 107 mMol/L 05/21/2024 5:51 AM EDT [facility] Carbon Dioxide 18(L) 22 - 31 mMol/L 05/21/2024 5:51 AM [facility] Anion Gap 9 5 - 15 mMol/L 05/21/2024 5:51 AM [facility] Calcium 9.4 8.5 - 10.5 mg/dL 05/21/2024 5:51 AM [facility] Est Glomerular Filtration Rate - Male 21 mL/min/1. 73 m?? 05/21/2024 5:51 AM [facility] Comment: This patient's estimated GFR was [...] eGFR. Link: eGFR Calculator [employer] Fasting Status No 05/21/2024 5:51 AM EDT [facility] Blood VENOUS BLOOD SPECIMEN / Unknown IP Care Team Draw / Unknown 05/21/2024 4:58 AM EDT 05/21/2024 5:17 AM EDT Mary De La Fuente MD CHEMISTRY ORDERABL ES [facility] [place] [address] * (ABNORMAL) CBC (with Diff) (05/21/2024 4:58 AM EDT) [facility] White Blood Cell 14.49(H) 4.00 - 9.50 x10(3)/mc L 05/21/2024 5:28 AM EDT [facility] Red Blood Cell 2.54(L) 4.58 - 5.54 x10(6)/mc L 05/21/2024 5:28 AM [facility] Hemoglobin 7.5(L) 13.7 - 16.5 g/dL 05/21/2024 5:28 AM [facility] Hematocrit 23.6(L) 40.5 - 48.5 % 05/21/2024 5:28 AM [facility] Mean Cell Volume 92.9 82.9 - 93.1 fL 05/21/2024 5:28 AM [facility] Mean Cell Hemoglobin 29.5 27.5 - 32.1 pg 05/21/2024 5:28 AM [facility] Mean Cell Hemoglobin Concentration 31.8(L) 32.0 - 35.7 g/dL 05/21/2024 5:28 AM [facility] Platelet 388(H) 145 - 357 x10(3)/mc L 05/21/2024 5:28 AM [facility] Mean Platelet Volume 10.8 7.6 - 12.9 fL 05/21/2024 5:28 AM [facility] RDW Standard Deviation 53.6(H) 36.0 - 45.0 fL 05/21/2024 5:28 AM [facility] RDW coefficient of variation 16.0(H) 11.4 - 13.8 % 05/21/2024 5:28 AM [facility] NRBC% auto 0.0 % 05/21/2024 5:28 AM [facility] NRBC Absolute 0.00 0.00 - 0.00 x10(3)/mc L 05/21/2024 5:28 AM EDT [facility] Neutrophil % 81.6 % 05/21/2024 5:28 AM EDT [facility] Neutrophil Absolute 11.83(H) 1.70 - 6.10 x10(3)/mc L 05/21/2024 5:28 AM EDT [facility] Lymph % 6.1 % 05/21/2024 5:28 AM EDT [facility] Lymph Absolute 0.89(L) 0.90 - 3.20 x10(3)/mc L 05/21/2024 5:28 AM EDT [facility] Monocyte % 9.4 % 05/21/2024 5:28 AM EDT [facility] Monocyte Absolute 1.36(H) 0.30 - 0.90 x10(3)/mc L 05/21/2024 5:28 AM EDT [facility] Eos % 2.1 % 05/21/2024 5:28 AM EDT [facility] Eos Absolute 0.30 0.00 - 0.40 x10(3)/mc L 05/21/2024 5:28 AM EDT [facility] Basophil % 0.2 % 05/21/2024 5:28 AM EDT [facility] Baso Absolute 0.03 0.00 - 0.10 x10(3)/mc L 05/21/2024 5:28 AM EDT [facility] Immature Gran % 0.6 % 5:28 AM EDT [facility] Immature Gran Absolute 0.08(H) 0.00 - 0.04 x10(3)/mc L 05/21/2024 5:28 AM EDT [facility] Blood VENOUS BLOOD SPECIMEN / Unknown IP Care Team Draw / Unknown 05/21/2024 4:58 AM EDT 05/21/2024 5:17 AM EDT Mary De La Fuente MD HEMATOLOGY ORDERAB LES [facility] [place] [address] * POC, GLUCOSE (05/21/2024 3:45 AM EDT) Glucometer, POC 155 65 - 199 mg/dL 05/21/2024 3:45 AM EDT [facility] Comment:Supplemental ranges: <140 mg/dL before meals <180 mg/dL all other times of the day. Blood CAPILLARY BLOOD / Unknown 05/21/2024 3:45 AM EDT 05/21/2024 3:46 AM EDT Saba Spears MD POINT OF CARE TEST ORDERABLES Performing Organization Address [facility] Co de Phone Number [facility] [place] [address] * POC, GLUCOSE (05/20/2024 11:44 PM EDT) Glucometer, POC 132 65 - 199 mg/dL 05/20/2024 11:44 PM EDT [facility] Comment:Supplemental ranges: <140 mg/dL before meals <180 mg/dL all other times of the day. Blood CAPILLARY BLOOD / Unknown 05/20/2024 11:44 PM EDT 05/20/2024 11:44 PM EDT Saba Spears MD POINT OF CARE TEST ORDERABLES Performing Organization Address City/[facility] Co de Phone Number [facility] [place] [address] * POC, GLUCOSE (05/20/2024 7:24 PM EDT) Glucometer, POC 166 65 - 199 mg/dL 05/20/2024 7:24 PM EDT [facility] Comment:Supplemental ranges: <140 mg/dL before meals <180 mg/dL all other times of the day. Blood CAPILLARY BLOOD / Unknown 05/20/2024 7:24 PM EDT 05/20/2024 7:25 PM EDT Saba Spears MD POINT OF CARE TEST ORDERABLES Performing Organization Address City/[facility]/ZIP Co de Phone Number [facility] [place] [address] * POC, GLUCOSE (05/20/2024 4:24 PM EDT) Glucometer, POC 170 65 - 199 mg/dL 05/20/2024 4:24 PM EDT [facility] Comment:Supplemental ranges: <140 mg/dL before meals <180 mg/dL all other times of the day. Blood CAPILLARY BLOOD / Unknown 05/20/2024 4:24 PM EDT 05/20/2024 4:24 PM EDT Saba Spears MD POINT OF CARE TEST ORDERABLES Performing Organization Address City/[facility] Co de Phone Number [facility] [place] [address] * (ABNORMAL) Hemogram (05/20/2024 12:35 PM EDT) White Blood Cell 14.66(H) 4.00 - 9.50 x10(3)/mc L 05/20/2024 12:50 PM EDT [facility] Red Blood Cell 2.81(L) 4.58 - 5.54 x10(6)/mc L 05/20/2024 12:50 PM EDT [facility] Hemoglobin 8.4(L) 13.7 - 16.5 g/dL 05/20/2024 12:50 PM EDT [facility] Hematocrit 26.2(L) 40.5 - 48.5 % 05/20/2024 12:50 PM EDT [facility] Mean Cell Volume 93.2(H) 82.9 - 93.1 fL 05/20/2024 12:50 PM EDT [facility] Mean Cell Hemoglobin 29.9 27.5 - 32.1 pg 05/20/2024 12:50 PM EDT [facility] Mean Cell Hemoglobin Concentration 32.1 32.0 - 35.7 g/dL 05/20/2024 12:50 PM EDT [facility] Platelet 416(H) 145 - 357 x10(3)/mc L 05/20/2024 12:50 PM EDT [facility] Mean Platelet Volume 10.4 7.6 - 12.9 fL 05/20/2024 12:50 PM EDT [facility] RDW Standard Deviation 52.9(H) 36.0 - 45.0 fL 05/20/2024 12:50 PM EDT [facility] RDW coefficient of variation 15.6(H) 11.4 - 13.8 % 05/20/2024 12:50 PM EDT [facility] NRBC% auto 0.0 % 05/20/2024 12:50 PM [facility] NRBC Absolute 0.00 0.00 - 0.00 x10(3)/mc L 05/20/2024 12:50 PM EDT [facility] Blood VENOUS BLOOD SPECIMEN / Unknown IP Care Team Draw / Unknown 05/20/2024 12:35 PM EDT 05/20/2024 12:43 PM EDT Saba Spears MD HEMATOLOGY ORDERABL ES [facility] [place] [place] [address] * POC, GLUCOSE (05/20/2024 11:52 AM EDT) [facility] Signature Glucometer, POC 176 65 - 199 mg/dL 05/20/2024 11:52 AM EDT [facility] Comment:Supplemental ranges: <140 mg/dL before meals <180 mg/dL all other times of the day. Blood CAPILLARY BLOOD / Unknown 05/20/2024 11:52 AM EDT 05/20/2024 11:52 AM EDT Saba Spears MD POINT OF CARE TEST ORDERABLES [facility] [place] [address] * US Retroperitoneal Complete (05/20/2024 10:36 AM EDT) WORKSTATION ID [id number] RAD Anatomical Region Laterality Modality Abdomen Ultrasound 05/20/2024 [...] Teofilo Ruiz MD at 05/20/2024 11:30 AM Electronically signed by: Teofilo Ruiz MD, [facility] ([phone]), at 05/20/2024 11:30 AM Thank you for letting us participate in the care of this patient. If you are a health care provider and have any questions regarding this report, please contact the number above. For patients who have questions, please contact the health care connector that requested your imaging first. ?Teofilo Ruiz, Staff Physician Electronically Signed Final Report ?? 05/20/2024 11:36 am Narrative 05/20/2024 11:37 AM EDT Renal ? (Signed Final 05/20/2024 11:36 am) PATIENT INFO: ID #: ? [id number] ?: ??[birth year] (69 yrs)(M) Name: ? JOSSY SHANKS ? Visit Date: 05/20/2024 10:34 am PERFORMED BY: Attending: ?Joseph SOTOMAYOR, Teofilo Flores Resident: ? Kuldeep SOTOMAYOR, Trinidad Wright Performed By: ? Lulu Shin RDMS Referred By: ?SABA SPEASR Location: ? [place] SERVICE(S) PROVIDED: URETRO - Retroperitoneal Complete - [id number] ? [id number] INDICATIONS: CKD, increase BUN TECHNIQUE/SCAN QUALITY: Scan [...] 05/20/2024 11:36 am) PATIENT INFO: ID #: [id number] : [birth year] (69 yrs)(M) Name: JOSSY SHANKS Visit Date: 05/20/2024 10:34 am PERFORMED BY: Attending: Teofilo Ruiz MD Resident: Trinidad Light MD Performed By: Lulu Shin RDMS Referred By: SABA SPEARS Location: [place] SERVICE(S) PROVIDED: URETRO - Retroperitoneal Complete - [id number] INDICATIONS: CKD, increase BUN TECHNIQUE/SCAN QUALITY: Scan [...] Teofilo Ruiz MD at 05/20/2024 11:30 AM Electronically signed by: Teofilo Ruiz MD, [facility] ([phone]), at 05/20/2024 11:30 AM Thank you for letting us participate in the care of this patient. If you are a health care provider and have any questions regarding this report, please contact the number above. For patients who have questions, please contact the health care connector that requested your imaging first. Teofilo Ruiz, Staff Physician Electronically Signed Final Report 05/20/2024 11:36 am Saba Spears MD [facility] GEN ORDERABL ES * POC, GLUCOSE (05/20/2024 8:03 AM EDT) Glucometer, POC 180 65 - 199 mg/dL 05/20/2024 8:03 AM EDT [facility] Comment:Supplemental ranges: <140 mg/dL before meals <180 mg/dL all other times of the day. Blood CAPILLARY BLOOD / Unknown 05/20/2024 8:03 AM EDT 05/20/2024 8:03 AM EDT Saba Spears MD POINT OF CARE TEST ORDERABLES Performing Organization Address [facility] Co de Phone Number [facility] [place] [address] * Magnesium (05/20/2024 4:27 AM EDT) Magnesium 0.99 0.69 - 1.07 mMol/L 05/20/2024 5:27 AM EDT [facility] Blood VENOUS BLOOD SPECIMEN / Unknown IP Care Team Draw / Unknown 05/20/2024 4:27 AM EDT 05/20/2024 4:52 AM EDT Mary De La Fuente MD CHEMISTRY ORDERABL ES Performing Organization Address [facility] Co de Phone Number [facility] [place] [address] * (ABNORMAL) Phosphorus (05/20/2024 4:27 AM EDT) Phosphorus 5.1(H) 2.5 - 4.5 mg/dL 05/20/2024 5:27 AM EDT [facility] Blood VENOUS BLOOD SPECIMEN / Unknown IP Care Team Draw / Unknown 05/20/2024 4:27 AM EDT 05/20/2024 4:52 AM EDT Mary De La Fuente MD CHEMISTRY ORDERABL ES Performing Organization Address City/[facility]/ZIP Co de Phone Number [facility] [place] [address] * (ABNORMAL) Basic Metabolic Panel (non-fasting) (05/20/2024 4:27 AM EDT) Glucose 173 65 - 199 mg/dL 05/20[facility]2024 6:[facility] Comment:Glucose Concentratio n >=200 mg/dL plus symptoms is consistent with Diabetes Mellitus. Blood Urea Nitrogen 121(H) 10 - 20 mg/dL 05/20/2024 6:27 AM EDT [facility] Creatinine 2.78(H) 0.80 - 1.50 mg/dL 05/20/2024 6:27 AM [facility] Sodium 138 135 - 145 mMol/L 05/20/2024 6:27 AM [facility] Potassium 5.4(H) 3.5 - 5.0 mMol/L 05/20/2024 6:27 AM [facility] Chloride 109(H) 98 - 107 mMol/L 05/20/2024 6:27 AM [facility] Carbon Dioxide 18(L) 22 - 31 mMol/L 05/20/2024 6:27 AM [facility] Anion Gap 11 5 - 15 mMol/L 05/20/2024 6:27 AM [facility] Calcium 9.4 8.5 - 10.5 mg/dL 05/20/2024 6:27 AM [facility] Est Glomerular Filtration Rate - Male 24 mL/min/1. 73 m?? 05/20/2024 6:27 AM [facility] Comment: This patient's estimated GFR was [...] eGFR. Link: eGFR Calculator [employer] Fasting Status No 05/20/2024 6:27 AM EDT [facility] Blood VENOUS BLOOD SPECIMEN / Unknown IP Care Team Draw / Unknown 05/20/2024 4:27 AM EDT 05/20/2024 4:52 AM EDT Mary De La Fuente MD CHEMISTRY ORDERABL ES [facility] [place] [address] * (ABNORMAL) CBC (with Diff) (05/20/2024 4:27 AM EDT) White Blood Cell 15.20(H) 4.00 - 9.50 x10(3)/mc L 05/20/2024 5:32 AM EDT [facility] Red Blood Cell 2.69(L) 4.58 - 5.54 x10(6)/mc L 05/20/2024 5:32 AM EDT [facility] Hemoglobin 7.9(L) 13.7 - 16.5 g/dL 05/20/2024 5:32 AM [facility] Hematocrit 25.5(L) 40.5 - 48.5 % 05/20/2024 5:32 AM [facility] Mean Cell Volume 94.8(H) 82.9 - 93.1 fL 05/20/2024 5:[facility] Mean Cell Hemoglobin 29.4 27.5 - 32.1 pg 05/20/2024 5:32 AM [facility] Mean Cell Hemoglobin Concentration 31.0(L) 32.0 - 35.7 g/dL 05/20/2024 5:32 [facility] Platelet 403(H) 145 - 357 x10(3)/mc L 05/20/2024 5:32 [facility] Mean Platelet Volume 10.7 7.6 - 12.9 fL 05/20/2024 5:32 AM [facility] RDW Standard Deviation 54.7(H) 36.0 - 45.0 fL 05/20/2024 5:32 AM [facility] RDW coefficient of variation 15.8(H) 11.4 - 13.8 % 05/20/2024 5:32 AM [facility] NRBC% auto 0.0 % 05/20/2024 5:32 AM [facility] NRBC Absolute 0.00 0.00 - 0.00 x10(3)/mc L 05/20/2024 5:32 AM [facility] Neutrophil % 82.1 % 05/20/2024 5:32 AM [facility] Neutrophil Absolute 12.49(H) 1.70 - 6.10 x10(3)/mc L 05/20/2024 5:32 AM [facility] Lymph % 6.3 % 05/20/2024 5:32 AM [facility] Lymph Absolute 0.96 0.90 - 3.20 x10(3)/mc L 05/20/2024 5:32 AM [facility] Monocyte % 8.7 % 05/20/2024 5:32 AM [facility] Monocyte Absolute 1.32(H) 0.30 - 0.90 x10(3)/mc L 05/20/2024 5:32 AM [facility] Eos % 2.0 % 05/20/2024 5:32 AM [facility] Eos Absolute 0.30 0.00 - 0.40 x10(3)/mc L 05/20/2024 5:32 AM [facility] Basophil % 0.3 % 05/20/2024 5:32 AM [facility] Baso Absolute 0.04 0.00 - 0.10 x10(3)/mc L 05/20/2024 5:32 AM EDT [facility] Immature Gran % 0.6 % 5:32 AM EDT [facility] Immature Gran Absolute 0.09(H) 0.00 - 0.04 x10(3)/mc L 05/20/2024 5:32 AM EDT [facility] Blood VENOUS BLOOD SPECIMEN / Unknown IP Care Team Draw / Unknown 05/20/2024 4:27 AM EDT 05/20/2024 4:52 AM EDT Mary De La Fuente MD HEMATOLOGY ORDERAB LES Performing Organization Address City/[facility]/ZIP Co de Phone Number [facility] [place] [address] * POC, GLUCOSE (05/20/2024 3:11 AM EDT) Glucometer, POC 163 65 - 199 mg/dL 05/20/2024 3:12 AM EDT [facility] Comment:Supplemental ranges: <140 mg/dL before meals <180 mg/dL all other times of the day. Blood CAPILLARY BLOOD / Unknown 05/20/2024 3:11 AM EDT 05/20/2024 3:12 AM EDT Saba Spears MD POINT OF CARE TEST ORDERABLES Performing Organization Address City/[facility]/ZIP Co de Phone Number [facility] [place] [address] * POC, GLUCOSE (05/19/2024 11:07 PM EDT) Glucometer, POC 136 65 - 199 mg/dL 05/19/2024 11:07 PM EDT [facility] Comment:Supplemental ranges: <140 mg/dL before meals <180 mg/dL all other times of the day. Blood CAPILLARY BLOOD / Unknown 05/19/2024 11:07 PM EDT 05/19/2024 11:07 PM EDT Saba Spears MD POINT OF CARE TEST ORDERABLES Performing Organization Address City/[facility]/ZIP Co de Phone Number [facility] [place] [address] * POC, GLUCOSE (05/19/2024 8:20 PM EDT) [facility] Glucometer, POC 150 65 - 199 mg/dL 05/19/2024 8:20 PM EDT [facility] Comment:Supplemental ranges: <140 mg/dL before meals <180 mg/dL all other times of the day. Blood CAPILLARY BLOOD / Unknown 05/19/2024 8:20 PM EDT 05/19/2024 8:21 PM EDT Saba Spears MD POINT OF CARE TEST ORDERABLES Performing Organization Address [facility]/ZIP Co de Phone Number [facility] [place] [place] [address] * (ABNORMAL) Iron and TIBC (05/19/2024 5:09 PM EDT) [facility] Iron 58 45 - 160 mcg/dL 05/19/2024 6:56 PM EDT [facility] Unsaturated Iron Binding Capacity 143 110 - 370 mcg/dL 05/19/2024 6:56 PM EDT [facility] TIBC 201(L) 250 - 450 mcg/dL 05/19/2024 6:56 PM EDT [facility] Iron Saturation 29 20 - 50 % 6:56 PM EDT [facility] Blood VENOUS BLOOD SPECIMEN / Unknown IP Care Team Draw / Unknown 05/19/2024 5:09 PM EDT 05/19/2024 5:43 PM EDT Saba Spears MD CHEMISTRY ORDERABLE S [facility] [place] [address] * PTH (05/19/2024 5:09 PM EDT) Parathyroid Hormone 27 15 - 65 pg/mL 05/19/2024 6:15 PM EDT [facility] Blood VENOUS BLOOD SPECIMEN / Unknown IP Care Team Draw / Unknown 05/19/2024 5:09 PM EDT 05/19/2024 5:43 PM EDT Saba Spears MD CHEMISTRY ORDERABLE S [facility] [place] [address] * Ferritin (05/19/2024 5:08 PM EDT) Ferritin 191 31 - 409 ng/ml 05/19/2024 6:24 PM EDT [facility] Blood VENOUS BLOOD SPECIMEN / Unknown IP Care Team Draw / Unknown 05/19/2024 5:08 PM EDT 05/19/2024 5:43 PM EDT Saba Spears MD CHEMISTRY ORDERABLE S [facility] [place] [address] * POC, GLUCOSE (05/19/2024 3:59 PM EDT) Glucometer, POC 185 65 - 199 mg/dL 05/19/2024 3:59 PM EDT [facility] Comment:Supplemental ranges: <140 mg/dL before meals <180 mg/dL all other times of the day. Blood CAPILLARY BLOOD / Unknown 05/19/2024 3:59 PM EDT 05/19/2024 3:59 PM EDT Saba Spears MD POINT OF CARE TEST ORDERABLES [facility] [place] [address] * POC, GLUCOSE (05/19/2024 12:32 PM EDT) Glucometer, POC 143 65 - 199 mg/dL 05/19/2024 12:32 PM EDT [facility] Comment:Supplemental ranges: <140 mg/dL before meals <180 mg/dL all other times of the day. Blood CAPILLARY BLOOD / Unknown 05/19/2024 12:32 PM EDT 05/19/2024 12:32 PM EDT Saba Spears MD POINT OF CARE TEST ORDERABLES [facility] [place] [address] * POC, GLUCOSE (05/19/2024 8:12 AM EDT) Glucometer, POC 181 65 - 199 mg/dL 05/19/2024 8:13 AM EDT [facility] Comment:Supplemental ranges: <140 mg/dL before meals <180 mg/dL all other times of the day. Blood CAPILLARY BLOOD / Unknown 05/19/2024 8:12 AM EDT 05/19/2024 8:13 AM EDT Saba Spears MD POINT OF CARE TEST ORDERABLES Performing Organization Address [facility]/ZIP Co de Phone Number [facility] [place] [address] * (ABNORMAL) Magnesium (05/19/2024 5:11 AM EDT) Magnesium 1.08(H) 0.69 - 1.07 mMol/L 05/19/2024 5:58 AM EDT [facility] Blood VENOUS BLOOD SPECIMEN / Unknown IP Care Team Draw / Unknown 05/19/2024 5:11 AM EDT 05/19/2024 5:30 AM EDT Mary De La Fuente MD CHEMISTRY ORDERABL ES Performing Organization Address City/[facility]/ZIP Co de Phone Number [facility] [place] [address] * (ABNORMAL) Phosphorus (05/19/2024 5:11 AM EDT) Phosphorus 5.1(H) 2.5 - 4.5 mg/dL 05/19/2024 5:58 AM EDT [facility] Blood VENOUS BLOOD SPECIMEN / Unknown IP Care Team Draw / Unknown 05/19/2024 5:11 AM EDT 05/19/2024 5:30 AM EDT Mary De La Fuente MD CHEMISTRY ORDERABL ES [facility] [place] [address] * (ABNORMAL) Basic Metabolic Panel (non-fasting) (05/19/2024 5:11 AM EDT) Glucose 162 65 - 199 mg/dL 05/19/2024 6:53 AM EDT [facility] Comment:Glucose Concentratio n >=200 mg/dL plus symptoms is consistent with Diabetes Mellitus. Blood Urea Nitrogen 118(H) 10 - 20 mg/dL 05/19/2024 6:53 AM EDT [facility] Creatinine 2.75(H) 0.80 - 1.50 mg/dL 05/19/2024 6:53 AM EDT [facility] Sodium 136 135 - 145 mMol/L 05/19/2024 6:53 AM EDT [facility] Potassium 5.2(H) 3.5 - 5.0 mMol/L 05/19/2024 6:53 AM EDT [facility] Chloride 108(H) 98 - 107 mMol/L 05/19/2024 6:53 AM [facility] Carbon Dioxide 18(L) 22 - 31 mMol/L 05/19[facility]2024 [facility] Anion Gap 10 5 - 15 mMol/L 05/19/2024 6:[facility] Calcium 9.3 8.5 - 10.5 mg/dL 05/19/2024 6:53 AM EDT [facility] Est Glomerular Filtration Rate - Male 24 mL/min/1. 73 m?? 05/19/2024 6:53 AM EDT [facility] Comment: This patient's estimated GFR was [...] eGFR. Link: eGFR Calculator [employer] Fasting Status No 05/19/2024 6:53 AM EDT [facility] Blood VENOUS BLOOD SPECIMEN / Unknown IP Care Team Draw / Unknown 05/19/2024 5:11 AM EDT 05/19/2024 5:30 AM EDT Mary De La Fuente MD CHEMISTRY ORDERABL ES [facility] [place] [address] * (ABNORMAL) CBC (with Diff) (05/19/2024 5:11 AM EDT) White Blood Cell 12.77(H) 4.00 - 9.50 x10(3)/mc L 05/19/2024 5:37 AM EDT [facility] Red Blood Cell 3.11(L) 4.58 - 5.54 x10(6)/mc L 05/19/2024 5:37 AM EDT [facility] Hemoglobin 9.3(L) 13.7 - 16.5 g/dL 05/19/2024 5:37 AM EDT [facility] Hematocrit 28.9(L) 40.5 - 48.5 % 05/19/2024 5:37 AM EDT [facility] Mean Cell Volume 92.9 82.9 - 93.1 fL 05/19/2024 5:37 AM [facility] Mean Cell Hemoglobin 29.9 27.5 - 32.1 pg 05/19/2024 5:37 AM [facility] Mean Cell Hemoglobin Concentration 32.2 32.0 - 35.7 g/dL 05/19/2024 5:37 AM [facility] Platelet 379(H) 145 - 357 x10(3)/mc L 05/19/2024 5:37 AM [facility] Mean Platelet Volume 10.2 7.6 - 12.9 fL 05/19/2024 5:37 AM [facility] RDW Standard Deviation 53.1(H) 36.0 - 45.0 fL 05/19/2024 5:37 AM [facility] RDW coefficient of variation 15.8(H) 11.4 - 13.8 % 05/19/2024 5:37 AM [facility] NRBC% auto 0.0 % 05/19/2024 5:37 AM [facility] NRBC Absolute 0.00 0.00 - 0.00 x10(3)/mc L 05/19/2024 5:37 AM [facility] Neutrophil % 78.9 % 05/19/2024 5:37 AM [facility] Neutrophil Absolute 10.06(H) 1.70 - 6.10 x10(3)/mc L 05/19/2024 5:37 AM [facility] Lymph % 8.1 % 05/19/2024 5:37 AM [facility] Lymph Absolute 1.03 0.90 - 3.20 x10(3)/mc L 05/19/2024 5:37 AM [facility] Monocyte % 10.3 % 05/19/2024 5:37 AM [facility] Monocyte Absolute 1.32(H) 0.30 - 0.90 x10(3)/mc L 05/19/2024 5:37 AM EDT [facility] Eos % 1.6 % 05/19/2024 5:37 AM EDT [facility] Eos Absolute 0.21 0.00 - 0.40 x10(3)/mc L 05/19/2024 5:37 AM EDT [facility] Basophil % 0.2 % 05/19/2024 5:37 AM EDT [facility] Baso Absolute 0.03 0.00 - 0.10 x10(3)/mc L 05/19/2024 5:37 AM EDT [facility] Immature Gran % 0.9 % 5:37 AM EDT [facility] Immature Gran Absolute 0.12(H) 0.00 - 0.04 x10(3)/mc L 05/19/2024 5:37 AM EDT [facility] Blood VENOUS BLOOD SPECIMEN / Unknown IP Care Team Draw / Unknown 05/19/2024 5:11 AM EDT 05/19/2024 5:30 AM EDT Mary De La Fuente MD HEMATOLOGY ORDERAB LES [facility] [place] [address] * POC, GLUCOSE (05/19/2024 3:27 AM EDT) [facility] Signature Glucometer, POC 171 65 - 199 mg/dL 05/19/2024 3:28 AM EDT [facility] Comment:Supplemental ranges: <140 mg/dL before meals <180 mg/dL all other times of the day. Blood CAPILLARY BLOOD / Unknown 05/19/2024 3:27 AM EDT 05/19/2024 3:28 AM EDT Saba Spears MD POINT OF CARE TEST ORDERABLES [facility] [place] [address] * POC, GLUCOSE (05/19/2024 12:02 AM EDT) Glucometer, POC 183 65 - 199 mg/dL 05/19/2024 12:02 AM EDT [facility] Comment:Supplemental ranges: <140 mg/dL before meals <180 mg/dL all other times of the day. Blood CAPILLARY BLOOD / Unknown 05/19/2024 12:02 AM EDT 05/19/2024 12:02 AM EDT Saba Spears MD POINT OF CARE TEST ORDERABLES [facility] [place] [address] * (ABNORMAL) POC, GLUCOSE (05/18/2024 8:05 PM EDT) Glucometer, POC 207(H) 65 - 199 mg/dL 05/18/2024 8:06 PM EDT [facility] Comment:Supplemental ranges: <140 mg/dL before meals <180 mg/dL all other times of the day. Blood CAPILLARY BLOOD / Unknown 05/18/2024 8:05 PM EDT 05/18/2024 8:06 PM EDT Saba Spears MD POINT OF CARE TEST ORDERABLES [facility] [place] [address] * POC, GLUCOSE (05/18/2024 6:14 PM EDT) Glucometer, POC 174 65 - 199 mg/dL 05/18/2024 6:15 PM EDT [facility] Comment:Supplemental ranges: <140 mg/dL before meals <180 mg/dL all other times of the day. Blood CAPILLARY BLOOD / Unknown 05/18/2024 6:14 PM EDT 05/18/2024 6:15 PM EDT Saba Spears MD POINT OF CARE TEST ORDERABLES [facility] [place] [address] * (ABNORMAL) Basic Metabolic Panel (05/18/2024 5:04 PM EDT) Glucose 170 65 - 199 mg/dL 05/18/2024 6:14 PM EDT [facility] Comment:Glucose Concentratio n >=200 mg/dL plus symptoms is consistent with Diabetes Mellitus. Blood Urea Nitrogen 116(H) 10 - 20 mg/dL 05/18/2024 6:14 PM EDT [facility] Creatinine 2.64(H) 0.80 - 1.50 mg/dL 05/18/2024 6:14 PM EDT [facility] Sodium 139 135 - 145 mMol/L 05/18/2024 6:14 PM T [facility] Potassium 5.4(H) 3.5 - 5.0 mMol/L 05/18/2024 6:14 PM EDT [facility] Chloride 110(H) 98 - 107 mMol/L 05/18/2024 6:14 PM T [facility] Carbon Dioxide 17(L) 22 - 31 mMol/L 05/18/2024 6:14 PM EDT [facility] Anion Gap 12 5 - 15 mMol/L 05/18/2024 6:14 PM EDT [facility] Calcium 9.2 8.5 - 10.5 mg/dL 05/18/2024 6:14 PM EDT [facility] Est Glomerular Filtration Rate - Male 25 mL/min/1. 73 m?? 05/18/2024 6:14 PM EDT [facility] Comment: This patient's estimated GFR was [...] eGFR. Link: eGFR Calculator [employer] Fasting Status No 05/18/2024 6:14 PM EDT [facility] Blood VENOUS BLOOD SPECIMEN / Unknown IP Care Team Draw / Unknown 05/18/2024 5:04 PM EDT 05/18/2024 5:11 PM EDT Saba Spears MD CHEMISTRY ORDERABLE S Performing Organization Address [facility]/ZIP Co de Phone Number [facility] [place] [address] * (ABNORMAL) POC, GLUCOSE (05/18/2024 11:45 AM EDT) Glucometer, POC 211(H) 65 - 199 mg/dL 05/18/2024 11:45 AM EDT [facility] Comment:Supplemental ranges: <140 mg/dL before meals <180 mg/dL all other times of the day. Blood CAPILLARY BLOOD / Unknown 05/18/2024 11:45 AM EDT 05/18/2024 11:45 AM EDT Saba Spears MD POINT OF CARE TEST ORDERABLES Performing Organization Address City/[facility]/ZIP Co de Phone Number [facility] [place] [address] * C diff Screen (05/18/2024 11:31 AM EDT) C Diff Interp Negative Negative 05/18/2024 3:02 PM EDT [facility] Comment:Clostridioides diffi cile is not present in the specimen. If patient is having diarrhea suspected to be from an infectious cause, then Soap & Water Contact Precautions are still required. If patient is having diarrhea with no suspected infectious cause use standard precautions. C Diff PCR Negative Negative, Indeterminate 05/18/2024 3:02 PM EDT [facility] Stool STOOL SPECIMEN / Unknown Non Blood Collection / Unknown 05/18/2024 11:31 AM EDT 05/18/2024 12:09 PM EDT Saba Spears MD MICROBIOLOGY - GENE RAL ORDERABLES Performing Organization Address [facility]/ZIP Co de Phone Number [facility] [place] [address] * C Diff PCR (05/18/2024 11:31 AM EDT) Stool STOOL SPECIMEN / Unknown Non Blood Collection / Unknown 05/18/2024 11:31 AM EDT 05/18/2024 12:09 PM EDT Saba Spears MD MICROBIOLOGY - GENE RAL ORDERABLES Performing Organization Address City/[facility]/[place] Co de Phone Number [facility] [place] [address] * Creatinine, urine, random (05/18/2024 8:57 AM EDT) Creatinine, Urine 44 mg/dL 05/18/2024 9:36 AM EDT [facility] Urine URINE SPECIMEN / Unknown Non Blood Collection / Unknown 05/18/2024 8:57 AM EDT 05/18/2024 9:07 AM EDT Saba Spears MD URINE ORDERABLES Performing Organization Address City/[facility]/ZIP Co de Phone Number [facility] [place] [address] * Electrolytes, urine, random (05/18/2024 8:57 AM EDT) Sodium, Urine 50 mMol/L 05/18/2024 12:09 PM EDT [facility] Potassium, Urine 13 mMol/L 05/18/2024 12:09 PM EDT [facility] Chloride, Urine 35 mMol/L 05/18/2024 12:09 PM EDT [facility] Urine URINE SPECIMEN / Unknown Non Blood Collection / Unknown 05/18/2024 8:57 AM EDT 05/18/2024 9:07 AM EDT Saba Spears MD URINE ORDERABLES Performing Organization Address City/[facility]/ZIP Co de Phone Number [facility] [place] [address] * POC, GLUCOSE (05/18/2024 8:34 AM EDT) Glucometer, POC 182 65 - 199 mg/dL 05/18/2024 8:35 AM EDT [facility] Comment:Supplemental ranges: <140 mg/dL before meals <180 mg/dL all other times of the day. Blood CAPILLARY BLOOD / Unknown 05/18/2024 8:34 AM EDT 05/18/2024 8:35 AM EDT Saba Spears MD POINT OF CARE TEST ORDERABLES Performing Organization Address [facility]/[place] Co de Phone Number [facility] [place] [address] * POC, GLUCOSE (05/18/2024 4:10 AM EDT) Glucometer, POC 163 65 - 199 mg/dL 05/18/2024 4:10 AM EDT [facility] Comment:Supplemental ranges: <140 mg/dL before meals <180 mg/dL all other times of the day. Blood CAPILLARY BLOOD / Unknown 05/18/2024 4:10 AM EDT 05/18/2024 4:11 AM EDT Saba Spears MD POINT OF CARE TEST ORDERABLES Performing Organization Address City/[facility]/ZIP Co de Phone Number [facility] [place] [address] * (ABNORMAL) CBC (with Diff) (05/18/2024 4:01 AM EDT) White Blood Cell 9.84(H) 4.00 - 9.50 x10(3)/mc L 05/18/2024 4:19 AM [facility] Red Blood Cell 3.24(L) 4.58 - 5.54 x10(6)/mc L 05/18/2024 4:19 AM [facility] Hemoglobin 9.6(L) 13.7 - 16.5 g/dL 05/18/2024 4:19 AM [facility] Hematocrit 31.4(L) 40.5 - 48.5 % 05/18/2024 4:19 AM [facility] Mean Cell Volume 96.9(H) 82.9 - 93.1 fL 05/18/2024 4:19 AM [facility] Mean Cell Hemoglobin 29.6 27.5 - 32.1 pg 05/18/2024 4:19 AM [facility] Mean Cell Hemoglobin Concentration 30.6(L) 32.0 - 35.7 g/dL 05/18/2024 4:19 AM [facility] Platelet 335 145 - 357 x10(3)/mc L 05/18/2024 4:19 AM [facility] Mean Platelet Volume 10.3 7.6 - 12.9 fL 05/18/2024 4:19 AM [facility] RDW Standard Deviation 56.4(H) 36.0 - 45.0 fL 05/18/2024 4:19 AM [facility] RDW coefficient of variation 15.7(H) 11.4 - 13.8 % 05/18/2024 4:19 AM [facility] NRBC% auto 0.2 % 05/18/2024 4:19 AM [facility] NRBC Absolute 0.02(H) 0.00 - 0.00 x10(3)/mc L 05/18/2024 4:19 AM [facility] Neutrophil % 76.5 % 05/18/2024 4:19 AM EDT [facility] Neutrophil Absolute 7.52(H) 1.70 - 6.10 x10(3)/mc L 05/18/2024 4:19 AM EDT [facility] Lymph % 8.0 % 05/18/2024 4:19 AM EDT [facility] Lymph Absolute 0.79(L) 0.90 - 3.20 x10(3)/mc L 05/18/2024 4:19 AM EDT [facility] Monocyte % 12.5 % 05/18/2024 4:19 AM EDT [facility] Monocyte Absolute 1.23(H) 0.30 - 0.90 x10(3)/mc L 05/18/2024 4:19 AM EDT [facility] Eos % 1.9 % 05/18/2024 4:19 AM EDT [facility] Eos Absolute 0.19 0.00 - 0.40 x10(3)/mc L 05/18/2024 4:19 AM EDT [facility] Basophil % 0.2 % 05/18/2024 4:19 AM EDT [facility] Baso Absolute 0.02 0.00 - 0.10 x10(3)/mc L 05/18/2024 4:19 AM EDT [facility] Immature Gran % 0.9 % 4:19 AM EDT [facility] Immature Gran Absolute 0.09(H) 0.00 - 0.04 x10(3)/mc L 05/18/2024 4:19 AM EDT [facility] Blood VENOUS BLOOD SPECIMEN / Unknown IP Care Team Draw / Unknown 05/18/2024 4:01 AM EDT 05/18/2024 4:13 AM EDT Mary De La Fuente MD HEMATOLOGY ORDERAB LES [facility] [place] [address] * (ABNORMAL) Magnesium (05/18/2024 4:00 AM EDT) Pathologist [facility] Magnesium 1.09(H) 0.69 - 1.07 mMol/L 05/18/2024 10:11 AM EDT [facility] Blood VENOUS BLOOD SPECIMEN / Unknown IP Care Team Draw / Unknown 05/18/2024 4:00 AM EDT 05/18/2024 4:13 AM EDT Mary De La Fuente MD CHEMISTRY ORDERABL ES Performing Organization Address [facility]/[place] Co de Phone Number [facility] [place] [address] * (ABNORMAL) Phosphorus (05/18/2024 4:00 AM EDT) [facility] Phosphorus 4.7(H) 2.5 - 4.5 mg/dL 05/18/2024 10:11 AM EDT [facility] Blood VENOUS BLOOD SPECIMEN / Unknown IP Care Team Draw / Unknown 05/18/2024 4:00 AM EDT 05/18/2024 4:13 AM EDT Mary De La Fuente MD CHEMISTRY ORDERABL ES Performing Organization Address [facility]/[place] Co de Phone Number [facility] [place] [address] * (ABNORMAL) Basic Metabolic Panel (non-fasting) (05/18/2024 4:00 AM EDT) [facility] Glucose 144 65 - 199 mg/dL 05/18/2024 10:11 AM EDT [facility] Comment:Glucose Concentratio n >=200 mg/dL plus symptoms is consistent with Diabetes Mellitus. Blood Urea Nitrogen 105(H) 10 - 20 mg/dL 05/18/2024 10:11 AM EDT [facility] Creatinine 2.69(H) 0.80 - 1.50 mg/dL 05/18/2024 10:11 AM EDT [facility] Sodium 134(L) 135 - 145 mMol/L 05/18/2024 10:11 AM EDT [facility] Potassium 5.6(H) 3.5 - 5.0 mMol/L 05/18/2024 10:11 AM [facility] Chloride 107 98 - 107 mMol/L 05/18/2024 10:11 AM [facility] Carbon Dioxide 11(L) 22 - 31 mMol/L 05/18/2024 10:11 AM [facility] Anion Gap 16(H) 5 - 15 mMol/L 05/18/2024 10:11 AM [facility] Calcium 8.8 8.5 - 10.5 mg/dL 05/18/2024 10:11 AM [facility] Est Glomerular Filtration Rate - Male 25 mL/min/1. 73 m?? 05/18/2024 10:11 AM [facility] Comment: This patient's estimated GFR was [...] eGFR. Link: eGFR Calculator [employer] Fasting Status No 05/18/2024 10:11 AM EDT [facility] Blood VENOUS BLOOD SPECIMEN / Unknown IP Care Team Draw / Unknown 05/18/2024 4:00 AM EDT 05/18/2024 4:13 AM EDT Mary De La Fuente MD CHEMISTRY ORDERABL ES [facility] [place] [address] * (ABNORMAL) POC, GLUCOSE (05/17/2024 11:30 PM EDT) [facility] Glucometer, POC 232(H) 65 - 199 mg/dL 05/17/2024 11:30 PM EDT [facility] Comment:Supplemental ranges: <140 mg/dL before meals <180 mg/dL all other times of the day. Blood CAPILLARY BLOOD / Unknown 05/17/2024 11:30 PM EDT 05/17/2024 11:30 PM EDT Saba Spears MD POINT OF CARE TEST ORDERABLES Performing Organization Address City/[facility]/ZIP Co de Phone Number [facility] [place] [address] * POC, GLUCOSE (05/17/2024 8:12 PM EDT) Glucometer, POC 161 65 - 199 mg/dL 05/17/2024 8:12 PM EDT [facility] Comment:Supplemental ranges: <140 mg/dL before meals <180 mg/dL all other times of the day. Blood CAPILLARY BLOOD / Unknown 05/17/2024 8:12 PM EDT 05/17/2024 8:13 PM EDT Saba Spears MD POINT OF CARE TEST ORDERABLES Performing Organization Address City/[facility]/[place] Co de Phone Number [facility] [place] [address] * POC, GLUCOSE (05/17/2024 5:35 PM EDT) Glucometer, POC 167 65 - 199 mg/dL 05/17/2024 5:35 PM EDT [facility] Comment:Supplemental ranges: <140 mg/dL before meals <180 mg/dL all other times of the day. Blood CAPILLARY BLOOD / Unknown 05/17/2024 5:35 PM EDT 05/17/2024 5:35 PM EDT Saba Spears MD POINT OF CARE TEST ORDERABLES [facility] [place] [address] * POC, GLUCOSE (05/17/2024 12:50 PM EDT) Glucometer, POC 147 65 - 199 mg/dL 05/17/2024 12:50 PM EDT [facility] Comment:Supplemental ranges: <140 mg/dL before meals <180 mg/dL all other times of the day. Blood CAPILLARY BLOOD / Unknown 05/17/2024 12:50 PM EDT 05/17/2024 12:50 PM EDT Saab Spears MD POINT OF CARE TEST ORDERABLES [facility] [place] [place] [address] * POC, GLUCOSE (05/17/2024 8:20 AM EDT) Glucometer, POC 139 65 - 199 mg/dL 05/17/2024 8:21 AM EDT [facility] Comment:Supplemental ranges: <140 mg/dL before meals <180 mg/dL all other times of the day. Blood CAPILLARY BLOOD / Unknown 05/17/2024 8:20 AM EDT 05/17/2024 8:21 AM EDT Treva Diaz MD POINT OF CARE TEST ORDERABLES [facility] [place] [place] [address] * (ABNORMAL) Magnesium (05/17/2024 5:49 AM EDT) Magnesium 1.14(H) 0.69 - 1.07 mMol/L 05/17/2024 6:58 AM EDT [facility] Blood IP Care Team w / Unknown 05/17/2024 5:49 AM EDT 05/17/2024 6:13 AM EDT Mary De La Fuente MD CHEMISTRY ORDERABL ES Performing Organization Address City/[facility]/ZIP Co de Phone Number [facility] [place] [address] * (ABNORMAL) Phosphorus (05/17/2024 5:49 AM EDT) Pathologist [facility] [place] Phosphorus 5.6(H) 2.5 - 4.5 mg/dL 05/17/2024 6:58 AM EDT [facility] Blood IP Care Team w / Nick 05/17/2024 5:49 AM EDT 05/17/2024 6:13 AM EDT Mary De La Fuente MD CHEMISTRY ORDERABL ES Performing Organization Address [facility] Co de Phone Number [facility] [place] [place] [address] * (ABNORMAL) Basic Metabolic Panel (non-fasting) (05/17/2024 5:49 AM EDT) [facility] Glucose 131 65 - 199 mg/dL 05/17/2024 6:58 AM EDT [facility] Comment:Glucose Concentratio n >=200 mg/dL plus symptoms is consistent with Diabetes Mellitus. Blood Urea Nitrogen 86(H) 10 - 20 mg/dL 05/17/2024 6:58 AM EDT [facility] Creatinine 3.07(H) 0.80 - 1.50 mg/dL 05/17/2024 6:58 AM EDT [facility] Sodium 134(L) 135 - 145 mMol/L 05/17/2024 6:58 AM EDT [facility] Potassium 5.0 3.5 - 5.0 mMol/L 05/17/2024 6:58 AM EDT [facility] Chloride 103 98 - 107 mMol/L 05/17/2024 6:58 AM EDT [facility] Carbon Dioxide 21(L) 22 - 31 mMol/L 05/17/2024 6:58 AM EDT [facility] Anion Gap 10 5 - 15 mMol/L 05/17/2024 6:58 AM EDT [facility] Calcium 8.7 8.5 - 10.5 mg/dL 05/17/2024 6:58 AM EDT [facility] Est Glomerular Filtration Rate - Male 21 mL/min/1. 73 m?? 05/17/2024 6:58 AM EDT [facility] Comment: This patient's estimated GFR was [...] eGFR. Link: eGFR Calculator [employer] Fasting Status No 05/17/2024 6:58 AM EDT [facility] Blood IP Care Team w / Nick 05/17/2024 5:49 AM EDT 05/17/2024 6:13 AM EDT Mary De La Fuente MD CHEMISTRY ORDERABL ES [facility] [place] [place] [address] * (ABNORMAL) CBC (with Diff) (05/17/2024 5:49 AM EDT) White Blood Cell 8.61 4.00 - 9.50 x10(3)/mc L 05/17/2024 6:28 AM EDT [facility] Red Blood Cell 3.54(L) 4.58 - 5.54 x10(6)/mc L 05/17/2024 6:28 AM EDT [facility] Hemoglobin 10.5(L) 13.7 - 16.5 g/dL 05/17/2024 6:28 AM EDT [facility] Hematocrit 33.9(L) 40.5 - 48.5 % 05/17/2024 6:28 AM [facility] Mean Cell Volume 95.8(H) 82.9 - 93.1 fL 05/17/2024 6:28 AM [facility] Mean Cell Hemoglobin 29.7 27.5 - 32.1 pg 05/17/2024 6:28 AM [facility] Mean Cell Hemoglobin Concentration 31.0(L) 32.0 - 35.7 g/dL 05/17/2024 6:28 AM [facility] Platelet 341 145 - 357 x10(3)/mc L 05/17/2024 6:28 AM [facility] Mean Platelet Volume 10.4 7.6 - 12.9 fL 05/17/2024 6:28 AM [facility] RDW Standard Deviation 56.5(H) 36.0 - 45.0 fL 05/17/2024 6:28 AM [facility] RDW coefficient of variation 15.7(H) 11.4 - 13.8 % 05/17/2024 6:28 AM [facility] NRBC% auto 0.0 % 05/17/2024 6:28 AM [facility] NRBC Absolute 0.00 0.00 - 0.00 x10(3)/mc L 05/17/2024 6:28 AM [facility] Neutrophil % 76.3 % 05/17/2024 6:28 AM [facility] Neutrophil Absolute 6.57(H) 1.70 - 6.10 x10(3)/mc L 05/17/2024 6:28 AM [facility] Lymph % 9.9 % 05/17/2024 6:28 AM [facility] Lymph Absolute 0.85(L) 0.90 - 3.20 x10(3)/mc L 05/17/2024 6:28 AM [facility] Monocyte % 11.7 % 05/17/2024 6:28 AM EDT [facility] Monocyte Absolute 1.01(H) 0.30 - 0.90 x10(3)/mc L 05/17/2024 6:28 AM EDT [facility] Eos % 0.8 % 05/17/2024 6:28 AM EDT [facility] Eos Absolute 0.07 0.00 - 0.40 x10(3)/mc L 05/17/2024 6:28 AM EDT [facility] Basophil % 0.1 % 05/17/2024 6:28 AM EDT [facility] Baso Absolute 0.01 0.00 - 0.10 x10(3)/mc L 05/17/2024 6:28 AM EDT [facility] Immature Gran % 1.2 % 6:28 AM EDT [facility] Immature Gran Absolute 0.10(H) 0.00 - 0.04 x10(3)/mc L 05/17/2024 6:28 AM EDT [facility] Blood IP Care Team Dra reilly / Nick 05/17/2024 5:49 AM EDT 05/17/2024 6:13 AM EDT Mary De La Fuente MD HEMATOLOGY ORDERAB LES [facility] [place] [address] * Vancomycin Level, Random (05/17/2024 5:49 AM EDT) Vancomycin, Random 22.4 mg/L 2023 6:58 AM EDT [facility] Comment:This level is for de termination of the patient's vancomycin xtqg-ghyzk-gdn-curve (AUC) value. Contact the inpatient pharmacy for interpretation. Blood IP Care Team Dra reilly / Nick 05/17/2024 5:49 AM EDT 05/17/2024 6:13 AM EDT Treva Diaz MD CHEMISTRY ORDERABL ES Performing Organization Address City/[facility]/ZIP Co de Phone Number [facility] [place] [address] * POC, GLUCOSE (05/17/2024 3:54 AM EDT) Glucometer, POC 135 65 - 199 mg/dL 05/17/2024 3:55 AM EDT [facility] Comment:Supplemental ranges: <140 mg/dL before meals <180 mg/dL all other times of the day. Blood CAPILLARY BLOOD / Unknown 05/17/2024 3:54 AM EDT 05/17/2024 3:55 AM EDT Treva Diaz MD POINT OF CARE TEST ORDERABLES Performing Organization Address [facility]/ZIP Co de Phone Number [facility] [place] [address] * POCT Glucose (05/16/2024 11:46 PM EDT) Glucose, POC 148 65 - 199 mg/dL [facility] Comment: Supplemental ranges: <140 mg/dL before meals <180 mg/dL all other times of the day Blood 05/16/2024 11:4 6 PM EDT 05/16/2024 11:46 PM EDT Treva Diaz MD POINT OF CARE TEST ORDERABLES Performing Organization Address City/[facility]/ZIP Co de Phone Number [facility] [place] [address] * POCT Glucose (05/16/2024 9:06 PM EDT) Glucose, POC 191 65 - 199 mg/dL [facility] Comment: Supplemental ranges: <140 mg/dL before meals <180 mg/dL all other times of the day Blood 05/16/2024 9:06 PM EDT 05/16/2024 9:06 PM EDT Treva Diaz MD POINT OF CARE TEST ORDERABLES [facility] [place] [address] * POCT Glucose (05/16/2024 8:04 PM EDT) Glucose, POC 199 65 - 199 mg/dL [facility] Comment: Supplemental ranges: <140 mg/dL before meals <180 mg/dL all other times of the day Blood 05/16/2024 8:04 PM EDT 05/16/2024 8:04 PM EDT Treva Diaz MD POINT OF CARE TEST ORDERABLES Performing Organization Address City/[facility]/ZIP Co de Phone Number [facility] [place] [address] * POCT Glucose (05/16/2024 4:51 PM EDT) Glucose, POC 162 65 - 199 mg/dL [facility] Comment: Supplemental ranges: <140 mg/dL before meals <180 mg/dL all other times of the day Blood 05/16/2024 4:51 PM EDT 05/16/2024 4:51 PM EDT Treva Diaz MD POINT OF CARE TEST ORDERABLES [facility] [address] * POCT Glucose (05/16/2024 12:48 PM EDT) Glucose, POC 153 65 - 199 mg/dL [facility] Comment: Supplemental ranges: <140 mg/dL before meals <180 mg/dL all other times of the day Blood 05/16/2024 12:4 8 PM EDT 05/16/2024 12:48 PM EDT Treva Diaz MD POINT OF CARE TEST ORDERABLES [facility] [address] * POCT Glucose (05/16/2024 8:45 AM EDT) [facility] Glucose, POC 165 65 - 199 mg/dL [facility] Comment: Supplemental ranges: <140 mg/dL before meals <180 mg/dL all other times of the day Blood 05/16/2024 8:45 AM EDT 05/16/2024 8:45 AM EDT Treva Diaz MD POINT OF CARE TEST ORDERABLES Performing Organization Address City/[facility]/ZIP Co de Phone Number [facility] [place] [address] * (ABNORMAL) Differential, Automated (05/16/2024 5:14 AM EDT) [facility] Neutrophil % 79.4 % [facility] Neutrophil Absolute 9.22(H) 1.70 - 6.10 x10(3)/mc L [facility] Lymph % 6.6 % [facility] Lymphocytes Abs 0.8(L) 0.9 - 3.2 x10(3)/mc L [facility] Monocyte % 9.5 % [facility] Monocyte Abs 1.1(H) 0.3 - 0.9 x10(3)/mc L [facility] Eos % 0.0 % [facility] Eosinophils Abs 0.0 0.0 - 0.4 x10(3)/mc L [facility] Basophil % 0.2 % [facility] Baso Absolute 0.0 0.0 - 0.1 x10(3)/mc L [facility] Immature Gran % 4.30 % [facility] Comment: Immature granulocytes(IG's)percentage and absolute count will include metamyelocytes, myelocytes, and promyelocytes. Blood smears from CBCs yielding IG's will be scanned manually for concordance. If this scan disagrees with the automated IG or if promyelocytes are noted, a manual differential will be performed. Immature Gran Absolute 0.50(H) 0.00 - 0.04 x10(3)/ L [facility] Blood 05/16/2024 5:14 AM EDT 05/16/2024 5:38 AM EDT Narrative Resulting Agency Comment Spec In Lab Carlotta Davis MD HEMATOLOGY OR DERABLES [facility] [place] [address] * (ABNORMAL) Hemogram (05/16/2024 5:14 AM EDT) White Blood Cell 11.6(H) 4.0 - 9.5 x10(3)/[facility] Red Blood Cell 3.59(L) 4.58 - 5.54 x10(6)/mc L [facility] Hemoglobin 10.5(L) 13.7 - 16.5 g/dL [facility] Hematocrit 33.8(L) 40.5 - 48.5 % [facility] Mean Cell Volume 94.2(H) 82.9 - 93.1 fL [facility] Mean Cell Hemoglobin 29.2 27.5 - 32.1 pg [facility] Mean Cell Hemoglobin Concentration 31.1(L) 32.0 - 35.7 g/dL [facility] Platelet 317 145 - 357 x10(3)/mc L [facility] RDW Standard Deviation 55.1(H) 36.0 - 45.0 fL [facility] RDW coefficient of variation 15.9(H) 11.4 - 13.8 % [facility] Mean Platelet Volume 10.6 7.6 - 12.9 fL [facility] NRBC% auto 0.0 % [facility] NRBC Absolute 0.000 0.000 - 0.000 x10(3)/mc L [facility] Blood 05/16/2024 5:14 AM EDT 05/16/2024 5:38 AM EDT Narrative Resulting Agency Comment Spec In Lab Carlotta Davis MD HEMATOLOGY OR DERABLES Performing Organization Address City/[facility]/ZIP Co de Phone Number [facility] [place] [address] * (ABNORMAL) Magnesium (05/16/2024 5:14 AM EDT) Magnesium 1.22(H) 0.69 - 1.07 mmol/L [facility] Blood 05/16/2024 5:14 AM EDT 05/16/2024 5:38 AM EDT Narrative Resulting Agency Comment Spec In Lab Mary De La Fuente MD CHEMISTRY ORDERABL ES Performing Organization Address [facility] Co de Phone Number [facility] [place] [address] * (ABNORMAL) Phosphorus (05/16/2024 5:14 AM EDT) Phosphorus 6.3(H) 2.5 - 4.5 mg/dL [facility] Blood 05/16/2024 5:14 AM EDT 05/16/2024 5:38 AM EDT Narrative Resulting Agency Comment Spec In Lab Mary De La Fuente MD CHEMISTRY ORDERABL ES Performing Organization Address [facility]/[place] Co de Phone Number [facility] [place] [address] * (ABNORMAL) Basic Metabolic Panel (non-fasting) (05/16/2024 5:14 AM EDT) Glucose 154 65 - 199 mg/dL [facility] Comment:Diabetes: >=200 mg/d L plus symptoms Blood Urea Nitrogen 74(H) 10 - 20 mg/dL [facility] Creatinine 2.88(H) 0.80 - 1.50 mg/dL [facility] Sodium 133(L) 135 - 145 mmol/L [facility] Potassium 5.0 3.5 - 5.0 mmol/L [facility] Comment: Please note: ??Patients with WBC >100,000 may have falsely elevated Potassium levels. ??For accurate Potassium quantification in these patients send serum separator tube (gold top) for subsequent determinations. ??Contact the Clinical Chemistry Laboratory if there are any questions. Chloride 101 98 - 107 mmol/L [facility] Carbon Dioxide 21(L) 22 - 31 mmol/L [facility] Anion Gap 11 5 - 15 mmol/L [facility] Calcium 8.8 8.5 - 10.5 mg/dL [facility] Est Glomerular Filtration Rate 23(L) >=60 mL/min/1. 73 m?? [facility] Comment: This patient's estimated GFR was [...] urine creatinine clearance. Assignment of CKD stage 1-5 for patients with an eGFR near the transition point between stages may be based on clinical assessment of muscle mass and symptoms in addition to eGFR. Blood 05/16/2024 5:14 AM EDT 05/16/2024 5:38 AM EDT Narrative Resulting Agency Comment Spec In Lab Mary De La Fuente MD CHEMISTRY ORDERABL ES [facility] [place] [address] * Vancomycin Level, Random (05/16/2024 5:14 AM EDT) Vancomycin, Random 29.1 mg/L [facility] Comment: This level is for determination of the patient's vancomycin alto-rxayy-ygt-curve (AUC) value. Contact the inpatient pharmacy for interpretation. Blood 05/16/2024 5:14 AM EDT 05/16/2024 5:38 AM EDT Treva Diaz MD CHEMISTRY ORDERABL ES Performing Organization Address City/[facility]/ZIP Co de Phone Number [facility] [place] [address] * POCT Glucose (05/16/2024 3:53 AM EDT) Glucose, POC 166 65 - 199 mg/dL [facility] Comment: Supplemental ranges: <140 mg/dL before meals <180 mg/dL all other times of the day Blood 05/16/2024 3:53 AM EDT 05/16/2024 3:53 AM EDT Treva Diaz MD POINT OF CARE TEST ORDERABLES Performing Organization Address [facility]/ZIP Co de Phone Number [facility] [place] [address] * POCT Glucose (05/15/2024 11:41 PM EDT) Glucose, POC 171 65 - 199 mg/dL [facility] Comment: Supplemental ranges: <140 mg/dL before meals <180 mg/dL all other times of the day Blood 05/15/2024 11:4 1 PM EDT 05/15/2024 11:41 PM EDT Treva Diaz MD POINT OF CARE TEST ORDERABLES Performing Organization Address City/[facility]/ZIP Co de Phone Number [facility] [place] [address] * POCT Glucose (05/15/2024 10:32 PM EDT) Glucose, POC 183 65 - 199 mg/dL [facility] Comment: Supplemental ranges: <140 mg/dL before meals <180 mg/dL all other times of the day Blood 05/15/2024 10:3 2 PM EDT 05/15/2024 10:32 PM EDT Treva Diaz MD POINT OF CARE TEST ORDERABLES Performing Organization Address City/[facility]/ZIP Co de Phone Number [facility] [place] [address] * POCT Glucose (05/15/2024 7:53 PM EDT) Pathologist [facility] Glucose, POC 187 65 - 199 mg/dL [facility] Comment: Supplemental ranges: <140 mg/dL before meals <180 mg/dL all other times of the day Blood 05/15/2024 7:53 PM EDT 05/15/2024 7:53 PM EDT Treva Diaz MD POINT OF CARE TEST ORDERABLES Performing Organization Address City/[facility]/ZIP Co de Phone Number [facility] [place] [address] * MRSA PCR Screen ([facility]/CGP/APD/NLH) (05/15/2024 4:15 PM EDT) [facility] MRSA PCR Negative Negative [facility] MRSA (Interp) Methicillin-resist ant Staphylococcus aureus (MRSA) is NOT DETECTED The MRSA target DNA sequences (mec and SCC) were not detected within the acceptable ranges using the Xpert MRSA NxG on the GeneXpert Dx System ([employer]). This suggests the absence of MRSA in the patient specimen submitted for testing. This test is cleared by the U.S. Food and Drug Administration for clinical use and its performance characteristics have been verified by the [facility] at [facility]. This result does not rule out the presence of any other organisms. Rare false negative results may occur if MRSA is present at low concentrations with much higher concentrations of other organisms including MRSE or S. aureus with an empty SCC cassette. [facility] Comment: [VERIFIED DATE]05.15.24 Verified By:Lupe Jensen (Electronic Signature) Nasopharyngeal Swab 05/15/20 4:15 PM EDT 05/15/2024 6:28 PM EDT Comment:Specimen Type->Nasop haryngeal Swab Narrative Resulting Agency Comment Spec In Lab Treva Diaz MD MOLECULAR ORDERABL ES [facility] [place] [address] * (ABNORMAL) POCT Glucose (05/15/2024 3:20 PM EDT) Glucose, POC 224(H) 65 - 199 mg/dL [facility] Comment: Supplemental ranges: <140 mg/dL before meals <180 mg/dL all other times of the day Blood 05/15/2024 3:20 PM EDT 05/15/2024 3:20 PM EDT Treva Diaz MD POINT OF CARE TEST ORDERABLES Performing Organization Address [facility]/ZIP Co de Phone Number [facility] [place] [address] * (ABNORMAL) POCT Glucose (05/15/2024 11:39 AM EDT) Glucose, POC 213(H) 65 - 199 mg/dL [facility] Comment: Supplemental ranges: <140 mg/dL before meals <180 mg/dL all other times of the day Blood 05/15/2024 11:3 9 AM EDT 05/15/2024 11:39 AM EDT Treva Diaz MD POINT OF CARE TEST ORDERABLES Performing Organization Address City/[facility]/ZIP Co de Phone Number [facility] [place] [address] * POCT Glucose (05/15/2024 8:02 AM EDT) Glucose, POC 190 65 - 199 mg/dL [facility] Comment: Supplemental ranges: <140 mg/dL before meals <180 mg/dL all other times of the day Blood 05/15/2024 8:02 AM EDT 05/15/2024 8:02 AM EDT Treva Diaz MD POINT OF CARE TEST ORDERABLES Performing Organization Address City/State/[place] Co de Phone Number [facility] [place] [address] * (ABNORMAL) Differential, Automated (05/15/2024 5:12 AM EDT) Pathologist [facility] Neutrophil % 85.3 % [facility] Neutrophil Absolute 11.37(H) 1.70 - 6.10 x10(3)/mc L [facility] Lymph % 3.7 % [facility] Lymphocytes Abs 0.5(L) 0.9 - 3.2 x10(3)/mc L [facility] Monocyte % 9.1 % [facility] Monocyte Abs 1.2(H) 0.3 - 0.9 x10(3)/mc L [facility] Eos % 0.0 % [facility] Eosinophils Abs 0.0 0.0 - 0.4 x10(3)/mc L [facility] Basophil % 0.1 % [facility] Baso Absolute 0.0 0.0 - 0.1 x10(3)/mc L [facility] Immature Gran % 1.80 % [facility] Comment: Immature granulocytes(IG's)percentage and absolute count will include metamyelocytes, myelocytes, and promyelocytes. Blood smears from CBCs yielding IG's will be scanned manually for concordance. If this scan disagrees with the automated IG or if promyelocytes are noted, a manual differential will be performed. Immature Gran Absolute 0.24(H) 0.00 - 0.04 x10(3)/mc L [facility] Blood 05/15/2024 5:12 AM EDT 05/15/2024 5:38 AM EDT Narrative Resulting Agency Comment Spec In Lab Carlotta Davis MD HEMATOLOGY OR DERABLES [facility] [place] [address] * (ABNORMAL) Hemogram (05/15/2024 5:12 AM EDT) White Blood Cell 13.4(H) 4.0 - 9.5 x10(3)/mc L [facility] Red Blood Cell 3.58(L) 4.58 - 5.54 x10(6)/mc L [facility] Hemoglobin 10.9(L) 13.7 - 16.5 g/dL [facility] Hematocrit 34.1(L) 40.5 - 48.5 % [facility] Mean Cell Volume 95.3(H) 82.9 - 93.1 fL [facility] Mean Cell Hemoglobin 30.4 27.5 - 32.1 pg [facility] Mean Cell Hemoglobin Concentration 32.0 32.0 - 35.7 g/dL [facility] Platelet 227 145 - 357 x10(3)/mc L [facility] RDW Standard Deviation 55.8(H) 36.0 - 45.0 fL [facility] RDW coefficient of variation 15.8(H) 11.4 - 13.8 % [facility] Mean Platelet Volume 10.7 7.6 - 12.9 fL [facility] NRBC% auto 0.0 % [facility] NRBC Absolute 0.000 0.000 - 0.000 x10(3)/mc L [facility] Blood 05/15/2024 5:12 AM EDT 05/15/2024 5:38 AM EDT Narrative Resulting Agency Comment Spec In Lab Carlotta Davis MD HEMATOLOGY OR DERABLES Performing Organization Address [facility]/[place] Co de Phone Number [facility] [place] [address] * (ABNORMAL) Magnesium (05/15/2024 5:12 AM EDT) Magnesium 1.21(H) 0.69 - 1.07 mmol/L [facility] Blood 05/15/2024 5:12 AM EDT 05/15/2024 5:38 AM EDT Narrative Resulting Agency Comment Spec In Lab Mary De La Fuente MD CHEMISTRY ORDERABL ES Performing Organization Address [facility]/[place] Co de Phone Number [facility] [place] [address] * (ABNORMAL) Phosphorus (05/15/2024 5:12 AM EDT) Phosphorus 6.5(H) 2.5 - 4.5 mg/dL [facility] Comment:result rechecked-HN Blood 05/15/2024 5:12 AM EDT 05/15/2024 5:38 AM EDT Narrative Resulting Agency Comment Spec In Lab Mary De La Fuente MD CHEMISTRY ORDERABL ES Performing Organization Address [facility]/[place] Co de Phone Number [facility] [place] [address] * (ABNORMAL) Basic Metabolic Panel (non-fasting) (05/15/2024 5:12 AM EDT) Glucose 217(H) 65 - 199 mg/dL [facility] Comment:Diabetes: >=200 mg/d L plus symptoms Blood Urea Nitrogen 58(H) 10 - 20 mg/dL [facility] Creatinine 2.46(H) 0.80 - 1.50 mg/dL [facility] Comment:result rechecked-HN Sodium 135 135 - 145 mmol/L [facility] Potassium 5.2(H) 3.5 - 5.0 mmol/L [facility] Comment: Please note: ??Patients with WBC >100,000 may have falsely elevated Potassium levels. ??For accurate Potassium quantification in these patients send serum separator tube (gold top) for subsequent determinations. ??Contact the Clinical Chemistry Laboratory if there are any questions. Chloride 100 98 - 107 mmol/L [facility] Carbon Dioxide 23 22 - 31 mmol/L [facility] Anion Gap 12 5 - 15 mmol/L [facility] Calcium 8.8 8.5 - 10.5 mg/dL [facility] Est Glomerular Filtration Rate 27(L) >=60 mL/min/1. 73 m?? [facility] Comment: This patient's estimated GFR was [...] urine creatinine clearance. Assignment of CKD stage 1-5 for patients with an eGFR near the transition point between stages may be based on clinical assessment of muscle mass and symptoms in addition to eGFR. Blood 05/15/2024 5:12 AM EDT 05/15/2024 5:38 AM EDT Narrative Resulting Agency Comment Spec In Lab Mary De La Fuente MD CHEMISTRY ORDERABL ES [facility] [place] [address] * (ABNORMAL) POCT Glucose (05/15/2024 4:55 AM EDT) Glucose, POC 223(H) 65 - 199 mg/dL [facility] Comment: Supplemental ranges: <140 mg/dL before meals <180 mg/dL all other times of the day Blood 05/15/2024 4:55 AM EDT 05/15/2024 4:55 AM EDT Treva Diaz MD POINT OF CARE TEST ORDERABLES Performing Organization Address City/[facility]/ZIP Co de Phone Number [facility] [place] [address] * (ABNORMAL) POCT Glucose (05/15/2024 2:51 AM EDT) Glucose, POC 279(H) 65 - 199 mg/dL [facility] Comment: Supplemental ranges: <140 mg/dL before meals <180 mg/dL all other times of the day Blood 05/15/2024 2:51 AM EDT 05/15/2024 2:51 AM EDT Treva Diaz MD POINT OF CARE TEST ORDERABLES Performing Organization Address [facility]/[place] Co de Phone Number [facility] [place] [address] * (ABNORMAL) POCT Glucose (05/14/2024 9:03 PM EDT) Glucose, POC 257(H) 65 - 199 mg/dL [facility] Comment: Supplemental ranges: <140 mg/dL before meals <180 mg/dL all other times of the day Blood 05/14/2024 9:03 PM EDT 05/14/2024 9:03 PM EDT Treva Diaz MD POINT OF CARE TEST ORDERABLES Performing Organization Address City/[facility]/[place] Co de Phone Number [facility] [place] [address] * (ABNORMAL) POCT Glucose (05/14/2024 7:15 PM EDT) Glucose, POC 207(H) 65 - 199 mg/dL [facility] Comment: Supplemental ranges: <140 mg/dL before meals <180 mg/dL all other times of the day Blood 05/14/2024 7:15 PM EDT 05/14/2024 7:15 PM EDT Treva Diaz MD POINT OF CARE TEST ORDERABLES Performing Organization Address [facility]/[place] Co de Phone Number [facility] [place] [address] * POCT Glucose (05/14/2024 4:47 PM EDT) Glucose, POC 188 65 - 199 mg/dL [facility] Comment: Supplemental ranges: <140 mg/dL before meals <180 mg/dL all other times of the day Blood 05/14/2024 4:47 PM EDT 05/14/2024 4:47 PM EDT Treva Diaz MD POINT OF CARE TEST ORDERABLES Performing Organization Address [facility]/[place] Co de Phone Number [facility] [place] [address] * POCT Glucose (05/14/2024 1:21 PM EDT) Glucose, POC 163 65 - 199 mg/dL [facility] Comment: Supplemental ranges: <140 mg/dL before meals <180 mg/dL all other times of the day Blood 05/14/2024 1:21 PM EDT 05/14/2024 1:21 PM EDT Treva Diaz MD POINT OF CARE TEST ORDERABLES Performing Organization Address [facility]/[place] Co de Phone Number [facility] [place] [address] * Anaerobic Culture (05/14/2024 11:33 AM EDT) Anaerobic Culture No anaerobic organisms isolated [facility] Toe 05/14/2024 11:3 3 AM EDT 05/14/2024 12:33 PM EDT Comment:PROXIMAL RIGHT 2ND T OE Narrative Resulting Agency Comment Spec In Lab Gennaro Meyers MD MICROBIOLOGY - GENE RAL ORDERABLES Performing Organization Address City/[facility]/ZIP Co de Phone Number [facility] [place] [address] * (ABNORMAL) Tissue culture (05/14/2024 11:33 AM EDT) Tissue Culture One colony of Coagulase negative Staphylococcus species(A) [facility] Gram Stain Few Neutrophils seen Rare Gram Positive Cocci in pairs seen Results called to and read back by Dr. Mihaela Galvan ??05/14/24 14:57:00 (A) [facility] Organism Coagulase negative Staphylococcus species(A) [facility] Organism Gram Positive Cocci in pairs(A) [facility] Toe 05/14/2024 11:3 3 AM EDT [...] Sensitive Comment:Gentamicin i s not appropriate for [place]-therapy. Coagulase Negative Staphylococcus species Levofloxacin MICROSCAN METHOD [...] METHOD Sensitive Gennaro Meyers MD MICROBIOLOGY - GENE RAL ORDERABLES [facility] [place] [address] * Surgical Pathology Report (05/14/2024 11:32 AM EDT) Surgical Pathology Report [id number] ? Location: [id number]; [id number]; A The signing [...] MD, Shima Verified: ??05/20/2024 11:25 Performed at: ??-[facility] [place] Dept. of [place]ology, [place] [address] Ruching Machine Operator: Polly Barnhart MD, FCAP, ??CLIA Certificate: [id number] SPECIMEN(S) SUBMITTED A - RIGHT 2ND TOE, excision (1) CLINICAL INFORMATION Right second toe osteomyelitis SPECIMEN PROCESSING A - Labeled/Fixative: Right second toe, fresh. 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 Lesion: There is a 1.8 x 1.8 x 0.9 cm navarro-pink polypoid lesion with a surfacing navarro- black granular scab on the dorsal aspect of the digit, at the base of the nail bed. The lesion is 1.7 cm from the nearest skin and soft tissue resection margin. Nail: Present (0.7 x 0.6 x 0.1 cm), navarro-yellow. Skin: Navarro-wang with underlying edema. Bone: ??Navarro-yellow, firm. ??No areas of softening identified. ??The overlying lesion does not appear to extend to the bone. Sections/Processi ng: Blocks submitted for decalcification: A1-A2. Evs Tech sections in 2 cassettes as follows: ?A1-A2: ??Longitudinal section of digit ??cmk [facility] 05/14/2024 11:3 2 AM EDT Gennaro Meyers MD PATHOLOGY/CYTOLOGY ORDERABLES Performing Organization Address [facility]/[place] Co de Phone Number [facility] [place] [address] * Specimen to Pathology (05/14/2024 11:32 AM EDT) AP Specimen 05/14/2024 11:3 2 AM EDT 05/14/2024 11:32 AM EDT Narrative [facility] - 05/14/2024 11:32 AM EDT Specimen requisition ordered. ??Separate Pathology report to follow Treva Diaz MD PATHOLOGY/CYTOLOGY ORDERABLES Performing Organization Address [facility]/[place] Co de Phone Number [facility] [place] [address] * (ABNORMAL) POCT Glucose (05/14/2024 7:58 AM EDT) Pathologist [facility] [place] Glucose, POC 203(H) 65 - 199 mg/dL [facility] Comment: Supplemental ranges: <140 mg/dL before meals <180 mg/dL all other times of the day Blood 05/14/2024 7:58 AM EDT 05/14/2024 7:58 AM EDT Treva Diaz MD POINT OF CARE TEST ORDERABLES Performing Organization Address [facility]/[place] Co de Phone Number [facility] [place] [address] * (ABNORMAL) Differential, Automated (05/14/2024 5:01 AM EDT) Pathologist [facility] [place] Neutrophil % 80.5 % [facility] Neutrophil Absolute 12.45(H) 1.70 - 6.10 x10(3)/mc L [facility] Lymph % 5.5 % [facility] Lymphocytes Abs 0.8(L) 0.9 - 3.2 x10(3)/mc L [facility] Monocyte % 12.6 % [facility] Monocyte Abs 2.0(H) 0.3 - 0.9 x10(3)/[facility] Eos % 0.3 % [facility] Eosinophils Abs 0.0 0.0 - 0.4 x10(3)/[facility] Basophil % 0.2 % [facility] Baso Absolute 0.0 0.0 - 0.1 x10(3)/[facility] Immature Gran % 0.90 % [facility] Comment: Immature granulocytes(IG's)percentage and absolute count will include metamyelocytes, myelocytes, and promyelocytes. Blood smears from CBCs yielding IG's will be scanned manually for concordance. If this scan disagrees with the automated IG or if promyelocytes are noted, a manual differential will be performed. Immature Gran Absolute 0.14(H) 0.00 - 0.04 x10(3)/[facility] Blood 05/14/2024 5:01 AM EDT 05/14/2024 6:02 AM EDT Narrative Resulting Agency Comment Spec In Lab Carlotta Davis MD HEMATOLOGY OR DERABLES Performing Organization Address City/State/[place] Co de Phone Number [facility] [place] [address] * (ABNORMAL) Hemogram (05/14/2024 5:01 AM EDT) White Blood Cell 15.5(H) 4.0 - 9.5 x10(3)/[facility] Red Blood Cell 3.55(L) 4.58 - 5.54 x10(6)/[facility] Hemoglobin 10.8(L) 13.7 - 16.5 g/dL [facility] Hematocrit 32.8(L) 40.5 - 48.5 % [facility] Mean Cell Volume 92.4 82.9 - 93.1 fL [facility] Mean Cell Hemoglobin 30.4 27.5 - 32.1 pg [facility] Mean Cell Hemoglobin Concentration 32.9 32.0 - 35.7 g/dL [facility] Platelet 190 145 - 357 x10(3)/mc L [facility] RDW Standard Deviation 53.2(H) 36.0 - 45.0 fL [facility] RDW coefficient of variation 15.6(H) 11.4 - 13.8 % [facility] Mean Platelet Volume 11.2 7.6 - 12.9 fL [facility] NRBC% auto 0.0 % [facility] NRBC Absolute 0.000 0.000 - 0.000 x10(3)/mc L [facility] Blood 05/14/2024 5:01 AM EDT 05/14/2024 6:02 AM EDT Narrative Resulting Agency Comment Spec In Lab Carlotta Davis MD HEMATOLOGY OR DERABLES Performing Organization Address City/[facility]/ZIP Co de Phone Number [facility] [place] [address] * Magnesium (05/14/2024 5:01 AM EDT) Magnesium 0.98 0.69 - 1.07 mmol/L [facility] Blood 05/14/2024 5:01 AM EDT 05/14/2024 6:02 AM EDT Narrative Resulting Agency Comment Spec In Lab Mary De La Fuente MD CHEMISTRY ORDERABL ES Performing Organization Address City/[facility]/ZIP Co de Phone Number [facility] [place] [address] * Phosphorus (05/14/2024 5:01 AM EDT) Phosphorus 2.8 2.5 - 4.5 mg/dL [facility] Blood 05/14/2024 5:01 AM EDT 05/14/2024 6:02 AM EDT Narrative Resulting Agency Comment Spec In Lab Mary De La Fuente MD CHEMISTRY ORDERABL ES [facility] [place] [address] * (ABNORMAL) Basic Metabolic Panel (non-fasting) (05/14/2024 5:01 AM EDT) Glucose 172 65 - 199 mg/dL [facility] Comment:Diabetes: >=200 mg/d L plus symptoms Blood Urea Nitrogen 46(H) 10 - 20 mg/dL [facility] Creatinine 1.56(H) 0.80 - 1.50 mg/dL [facility] Sodium 137 135 - 145 mmol/L [facility] Potassium 4.4 3.5 - 5.0 mmol/L [facility] Comment: Please note: ??Patients with WBC >100,000 may have falsely elevated Potassium levels. ??For accurate Potassium quantification in these patients send serum separator tube (gold top) for subsequent determinations. ??Contact the Clinical Chemistry Laboratory if there are any questions. Chloride 105 98 - 107 mmol/L [facility] Carbon Dioxide 22 22 - 31 mmol/L [facility] Anion Gap 10 5 - 15 mmol/L [facility] Calcium 8.7 8.5 - 10.5 mg/dL [facility] Est Glomerular Filtration Rate 47(L) >=60 mL/min/1. 73 m?? [facility] Comment: This patient's estimated GFR was [...] urine creatinine clearance. Assignment of CKD stage 1-5 for patients with an eGFR near the transition point between stages may be based on clinical assessment of muscle mass and symptoms in addition to eGFR. Blood 05/14/2024 5:01 AM EDT 05/14/2024 6:02 AM EDT Narrative Resulting Agency Comment Spec In Lab Mary De La Fuente MD CHEMISTRY ORDERABL ES Performing Organization Address [facility]/ZIP Co de Phone Number [facility] [place] [address] * Vancomycin Level, Random (05/14/2024 5:01 AM EDT) Vancomycin, Random 13.5 mg/L [facility] Comment: This level is for determination of the patient's vancomycin wlkz-jotuw-uik-curve (AUC) value. Contact the inpatient pharmacy for interpretation. Blood 05/14/2024 5:01 AM EDT 05/14/2024 6:02 AM EDT Treva Diaz MD CHEMISTRY ORDERABL ES Performing Organization Address [facility]/[place] Co de Phone Number [facility] [place] [address] * POCT Glucose (05/13/2024 8:41 PM EDT) Glucose, POC 179 65 - 199 mg/dL [facility] Comment: Supplemental ranges: <140 mg/dL before meals <180 mg/dL all other times of the day Blood 05/13/2024 8:41 PM EDT 05/13/2024 8:41 PM EDT Treva Diaz MD POINT OF CARE TEST ORDERABLES Performing Organization Address [facility]/ZIP Co de Phone Number [facility] [place] [address] * POCT Glucose (05/13/2024 6:06 PM EDT) Glucose, POC 135 65 - 199 mg/dL [facility] Comment: Supplemental ranges: <140 mg/dL before meals <180 mg/dL all other times of the day Blood 05/13/2024 6:06 PM EDT 05/13/2024 6:06 PM EDT Treva Diaz MD POINT OF CARE TEST ORDERABLES [facility] [place] [address] * POCT Glucose (05/13/2024 11:12 AM EDT) Glucose, POC 163 65 - 199 mg/dL [facility] Comment: Supplemental ranges: <140 mg/dL before meals <180 mg/dL all other times of the day Blood 05/13/2024 11:1 2 AM EDT 05/13/2024 11:12 AM EDT Treva Diaz MD POINT OF CARE TEST ORDERABLES Performing Organization Address City/[facility]/ZIP Co de Phone Number [facility] [place] [address] * POCT Glucose (05/13/2024 7:47 AM EDT) Glucose, POC 194 65 - 199 mg/dL [facility] Comment: Supplemental ranges: <140 mg/dL before meals <180 mg/dL all other times of the day Blood 05/13/2024 7:47 AM EDT 05/13/2024 7:47 AM EDT Treva Diaz MD POINT OF CARE TEST ORDERABLES Performing Organization Address City/[facility]/ZIP Co de Phone Number [facility] [place] [address] * Scan, Peripheral Blood (05/13/2024 5:29 AM EDT) Plat estimate Normal [facility] RBC Morphology Abnormal [facility] Sofía Cells 1-5 /HPF [facility] Plat, Giant Less than 1 /HPF [facility] Blood 05/13/2024 5:29 AM EDT 05/13/2024 5:49 AM EDT Narrative Resulting Agency Comment Spec In Lab Carlotta Davis MD HEMATOLOGY OR DERABLES [facility] [place] [address] * (ABNORMAL) Differential, Automated (05/13/2024 5:29 AM EDT) Neutrophil % 81.8 % [facility] Neutrophil Absolute 12.66(H) 1.70 - 6.10 x10(3)/mc L [facility] Lymph % 5.0 % [facility] Lymphocytes Abs 0.8(L) 0.9 - 3.2 x10(3)/mc L [facility] Monocyte % 12.3 % [facility] Monocyte Abs 1.9(H) 0.3 - 0.9 x10(3)/mc L [facility] Eos % 0.2 % [facility] Eosinophils Abs 0.0 0.0 - 0.4 x10(3)/mc L [facility] Basophil % 0.1 % [facility] Baso Absolute 0.0 0.0 - 0.1 x10(3)/mc L [facility] Immature Gran % 0.60 % [facility] Comment: Immature granulocytes(IG's)percentage and absolute count will include metamyelocytes, myelocytes, and promyelocytes. Blood smears from CBCs yielding IG's will be scanned manually for concordance. If this scan disagrees with the automated IG or if promyelocytes are noted, a manual differential will be performed. Immature Gran Absolute 0.09(H) 0.00 - 0.04 x10(3)/mc L [facility] Blood 05/13/2024 5:29 AM EDT 05/13/2024 5:49 AM EDT Narrative Resulting Agency Comment Spec In Lab Carlotta Davis MD HEMATOLOGY OR DERABLES [facility] [place] [address] * (ABNORMAL) Hemogram (05/13/2024 5:29 AM EDT) White Blood Cell 15.5(H) 4.0 - 9.5 x10(3)/mc L [facility] Red Blood Cell 3.64(L) 4.58 - 5.54 x10(6)/mc L [facility] Hemoglobin 10.9(L) 13.7 - 16.5 g/dL [facility] Hematocrit 33.3(L) 40.5 - 48.5 % [facility] Mean Cell Volume 91.5 82.9 - 93.1 fL [facility] Mean Cell Hemoglobin 29.9 27.5 - 32.1 pg [facility] Mean Cell Hemoglobin Concentration 32.7 32.0 - 35.7 g/dL [facility] Platelet 186 145 - 357 x10(3)/mc L [facility] RDW Standard Deviation 53.0(H) 36.0 - 45.0 fL [facility] RDW coefficient of variation 15.8(H) 11.4 - 13.8 % [facility] Mean Platelet Volume 11.8 7.6 - 12.9 fL [facility] NRBC% auto 0.0 % [facility] NRBC Absolute 0.000 0.000 - 0.000 x10(3)/mc L [facility] Blood 05/13/2024 5:29 AM EDT 05/13/2024 5:49 AM EDT Narrative Resulting Agency Comment Spec In Lab Carlotta Davis MD HEMATOLOGY OR DERABLES Performing Organization Address [facility]/[place] Co de Phone Number [facility] [place] [address] * Magnesium (05/13/2024 5:29 AM EDT) Pathologist [facility] [place] Magnesium 0.99 0.69 - 1.07 mmol/L [facility] Blood 05/13/2024 5:29 AM EDT 05/13/2024 5:49 AM EDT Narrative Resulting Agency Comment Spec In Lab Mary De La Fuente MD CHEMISTRY ORDERABL ES Performing Organization Address [facility] Co de Phone Number [facility] [place] [address] * Phosphorus (05/13/2024 5:29 AM EDT) [facility] Phosphorus 2.7 2.5 - 4.5 mg/dL [facility] Blood 05/13/2024 5:29 AM EDT 05/13/2024 5:49 AM EDT Narrative Resulting Agency Comment Spec In Lab Mary De La Fuente MD CHEMISTRY ORDERABL ES Performing Organization Address [facility] de Phone Number [facility] [place] [address] * (ABNORMAL) Basic Metabolic Panel (non-fasting) (05/13/2024 5:29 AM EDT) [facility] Glucose 166 65 - 199 mg/dL [facility] Comment:Diabetes: >=200 mg/d L plus symptoms Blood Urea Nitrogen 57(H) 10 - 20 mg/dL [facility] Creatinine 1.53(H) 0.80 - 1.50 mg/dL [facility] Sodium 137 135 - 145 mmol/L [facility] Potassium 4.4 3.5 - 5.0 mmol/L [facility] Comment: Please note: ??Patients with WBC >100,000 may have falsely elevated Potassium levels. ??For accurate Potassium quantification in these patients send serum separator tube (gold top) for subsequent determinations. ??Contact the Clinical Chemistry Laboratory if there are any questions. Chloride 104 98 - 107 mmol/L [facility] Carbon Dioxide 24 22 - 31 mmol/L [facility] Anion Gap 9 5 - 15 mmol/L [facility] Calcium 8.7 8.5 - 10.5 mg/dL [facility] Est Glomerular Filtration Rate 49(L) >=60 mL/min/1. 73 m?? [facility] Comment: This patient's estimated GFR was [...] urine creatinine clearance. Assignment of CKD stage 1-5 for patients with an eGFR near the transition point between stages may be based on clinical assessment of muscle mass and symptoms in addition to eGFR. Blood 05/13/2024 5:29 AM EDT 05/13/2024 5:49 AM EDT Narrative Resulting Agency Comment Spec In Lab Mary De La Fuente MD CHEMISTRY ORDERABL ES Performing Organization Address City/[facility]/ZIP Co de Phone Number [facility] [place] [address] * POCT Glucose (05/12/2024 11:46 PM EDT) Glucose, POC 165 65 - 199 mg/dL [facility] Comment: Supplemental ranges: <140 mg/dL before meals <180 mg/dL all other times of the day Blood 05/12/2024 11:4 6 PM EDT 05/12/2024 11:46 PM EDT Treva Diaz MD POINT OF CARE TEST ORDERABLES [facility] [place] [address] * POCT Glucose (05/12/2024 8:36 PM EDT) Glucose, POC 164 65 - 199 mg/dL [facility] Comment: Supplemental ranges: <140 mg/dL before meals <180 mg/dL all other times of the day Blood 05/12/2024 8:36 PM EDT 05/12/2024 8:36 PM EDT Treva Diaz MD POINT OF CARE TEST ORDERABLES Performing Organization Address City/[facility]/ZIP Co de Phone Number [facility] [place] [address] * POCT Glucose (05/12/2024 5:38 PM EDT) Glucose, POC 175 65 - 199 mg/dL [facility] Comment: Supplemental ranges: <140 mg/dL before meals <180 mg/dL all other times of the day Blood 05/12/2024 5:38 PM EDT 05/12/2024 5:38 PM EDT Treva Diaz MD POINT OF CARE TEST ORDERABLES Performing Organization Address [facility]/[place] Co de Phone Number [facility] [place] [address] * Vancomycin Level, Random (05/12/2024 2:10 PM EDT) Vancomycin, Random 22.3 mg/L [facility] Comment: This level is for determination of the patient's vancomycin gxuk-ehfre-rea-curve (AUC) value. Contact the inpatient pharmacy for interpretation. Blood 05/12/2024 2:10 PM EDT 05/12/2024 2:23 PM EDT Treva Diaz MD CHEMISTRY ORDERABL ES Performing Organization Address City/[facility]/ZIP Co de Phone Number [facility] [place] [address] * POCT Glucose (05/12/2024 1:42 PM EDT) Glucose, POC 168 65 - 199 mg/dL [facility] Comment: Supplemental ranges: <140 mg/dL before meals <180 mg/dL all other times of the day Blood 05/12/2024 1:42 PM EDT 05/12/2024 1:42 PM EDT Treva Diaz MD POINT OF CARE TEST ORDERABLES [facility] [place] [address] * Duplex for DVT, Leg, Unilat (05/12/2024 10:19 AM EDT) [facility] VB Text Report Department: Vascular Surgery Lab Patient: [id number] (JOSSY SHANKS) CPT: 63888 Referring Physician: MARY DE LA FUENTE ?? Phone: Indications: Edema ? DVT Findings: [...] Report VASCUBASE 05/12/2024 10:1 9 AM EDT Mary De La Fuente MD VASCULAR ORDERABLE S VASCUBASE * POCT Glucose (05/12/2024 9:00 AM EDT) Glucose, POC 161 65 - 199 mg/dL [facility] Comment: Supplemental ranges: <140 mg/dL before meals <180 mg/dL all other times of the day Blood 05/12/2024 9:00 AM EDT 05/12/2024 9:00 AM EDT Treva Diaz MD POINT OF CARE TEST ORDERABLES Performing Organization Address [facility] Co de Phone Number [facility] [place] [address] * (ABNORMAL) Sedimentation rate (05/12/2024 4:45 AM EDT) [facility] Sedimentation Rate Automated >119(H) 3 - 46 mm/hr [facility] Comment: Effective September 24, 2019 new [...] MD HEMATOLOGY ORDERABLE S Performing Organization Address [facility] Co de Phone Number [facility] [place] [address] * (ABNORMAL) CRP, acute inflammation (05/12/2024 4:45 AM EDT) [facility] C-Reactive Protein 152.4(H) <=4.9 mg/L [facility] Blood Venous Draw / Unknown 05/12/2024 4:45 AM EDT 05/12/2024 5:12 AM EDT Narrative Resulting Agency Comment Spec In Lab Juan José Harrison MD CHEMISTRY ORDERABLES Performing Organization Address [facility] Co de Phone Number [facility] [place] [address] * (ABNORMAL) Differential, Automated (05/12/2024 4:45 AM EDT) Neutrophil % 87.9 % [facility] Neutrophil Absolute 17.31(H) 1.70 - 6.10 x10(3)/[facility] Lymph % 3.9 % [facility] Lymphocytes Abs 0.8(L) 0.9 - 3.2 x10(3)/[facility] Monocyte % 7.4 % [facility] Monocyte Abs 1.4(H) 0.3 - 0.9 x10(3)/[facility] Eos % 0.0 % [facility] Eosinophils Abs 0.0 0.0 - 0.4 x10(3)/[facility] Basophil % 0.1 % [facility] Baso Absolute 0.0 0.0 - 0.1 x10(3)/[facility] Immature Gran % 0.70 % [facility] Comment: Immature granulocytes(IG's)percentage and absolute count will include metamyelocytes, myelocytes, and promyelocytes. Blood smears from CBCs yielding IG's will be scanned manually for concordance. If this scan disagrees with the automated IG or if promyelocytes are noted, a manual differential will be performed. Immature Gran Absolute 0.14(H) 0.00 - 0.04 x10(3)/[facility] Blood 05/12/2024 4:45 AM EDT 05/12/2024 5:06 AM EDT Narrative Resulting Agency Comment Spec In Lab Carlotta Davis MD HEMATOLOGY OR DERABLES [facility] [place] [address] * (ABNORMAL) Hemogram (05/12/2024 4:45 AM EDT) White Blood Cell 19.7(H) 4.0 - 9.5 x10(3)/[facility] Red Blood Cell 3.58(L) 4.58 - 5.54 x10(6)/ L [facility] Hemoglobin 10.9(L) 13.7 - 16.5 g/dL [facility] Hematocrit 33.1(L) 40.5 - 48.5 % [facility] Mean Cell Volume 92.5 82.9 - 93.1 fL [facility] Mean Cell Hemoglobin 30.4 27.5 - 32.1 pg [facility] Mean Cell Hemoglobin Concentration 32.9 32.0 - 35.7 g/dL [facility] Platelet 165 145 - 357 x10(3)/[facility] RDW Standard Deviation 53.2(H) 36.0 - 45.0 [facility] RDW coefficient of variation 15.7(H) 11.4 - 13.8 % [facility] Mean Platelet Volume 12.1 7.6 - 12.9 [facility] NRBC% auto 0.0 % [facility] NRBC Absolute 0.000 0.000 - 0.000 x10(3)/[facility] Blood 05/12/2024 4:45 AM EDT 05/12/2024 5:06 AM EDT Narrative Resulting Agency Comment Spec In Lab Carlotta Davis MD HEMATOLOGY OR DERABLES [facility] [place] [address] * Magnesium (05/12/2024 4:45 AM EDT) Magnesium 1.07 0.69 - 1.07 mmol/L [facility] Blood 05/12/2024 4:45 AM EDT 05/12/2024 5:06 AM EDT Narrative Resulting Agency Comment Spec In Lab Mary De La Fuente MD CHEMISTRY ORDERABL ES [facility] [place] [address] * Phosphorus (05/12/2024 4:45 AM EDT) Phosphorus 2.7 2.5 - 4.5 mg/dL [facility] Blood 05/12/2024 4:45 AM EDT 05/12/2024 5:06 AM EDT Narrative Resulting Agency Comment Spec In Lab Mary De La Fuente MD CHEMISTRY ORDERABL ES Performing Organization Address [facility] Co de Phone Number [facility] [place] [address] * (ABNORMAL) Basic Metabolic Panel (non-fasting) (05/12/2024 4:45 AM EDT) Glucose 156 65 - 199 mg/dL [facility] Comment:Diabetes: >=200 mg/d L plus symptoms Blood Urea Nitrogen 72(H) 10 - 20 mg/dL [facility] Creatinine 2.03(H) 0.80 - 1.50 mg/dL [facility] Sodium 135 135 - 145 mmol/L [facility] Potassium 4.5 3.5 - 5.0 mmol/L [facility] Comment: Please note: ??Patients with WBC >100,000 may have falsely elevated Potassium levels. ??For accurate Potassium quantification in these patients send serum separator tube (gold top) for subsequent determinations. ??Contact the Clinical Chemistry Laboratory if there are any questions. Chloride 101 98 - 107 mmol/L [facility] Carbon Dioxide 24 22 - 31 mmol/L [facility] Anion Gap 10 5 - 15 mmol/L [facility] Calcium 8.4(L) 8.5 - 10.5 mg/dL [facility] Est Glomerular Filtration Rate 35(L) >=60 mL/min/1. 73 m?? [facility] Comment: This patient's estimated GFR was [...] urine creatinine clearance. Assignment of CKD stage 1-5 for patients with an eGFR near the transition point between stages may be based on clinical assessment of muscle mass and symptoms in addition to eGFR. Blood 05/12/2024 4:45 AM EDT 05/12/2024 5:06 AM EDT Narrative Resulting Agency Comment Spec In Lab Mary De La Fuente MD CHEMISTRY ORDERABL ES [facility] [place] [address] * ANGY, legs, multiple levels (05/12/2024 3:22 AM EDT) VB Text Report Department: Vascular Surgery Lab Patient: [id number] (JOSSY SHANKS) CPT: [id number] Referring Physician: THO DICKSON ?? Phone: Indications: Right lower extremity [...] of Report VASCUBASE 05/12/2024 3:22 AM EDT Mary De La Fuente MD VASCULAR ORDERABLE S Performing Organization Address [facility] Phone Number VASCUBASE * (ABNORMAL) POCT Glucose (05/11/2024 8:14 PM EDT) Glucose, POC 201(H) 65 - 199 mg/dL [facility] Comment: Supplemental ranges: <140 mg/dL before meals <180 mg/dL all other times of the day Blood 05/11/2024 8:14 PM EDT 05/11/2024 8:14 PM EDT Treva Diaz MD POINT OF CARE TEST ORDERABLES Performing Organization Address [facility] de Phone Number [facility] [place] [address] * Vancomycin Level, Random (05/11/2024 8:10 PM EDT) Vancomycin, Random 21.7 mg/L [facility] Comment: This level is for determination of the patient's vancomycin nhpj-usnpw-mwq-curve (AUC) value. Contact the inpatient pharmacy for interpretation. Blood 05/11/2024 8:10 PM EDT 05/11/2024 8:32 PM EDT Treva Diaz MD CHEMISTRY ORDERABL ES Performing Organization Address [facility] de Phone Number [facility] [place] [address] * POCT Glucose (05/11/2024 4:34 PM EDT) Glucose, POC 197 65 - 199 mg/dL [facility] Comment: Supplemental ranges: <140 mg/dL before meals <180 mg/dL all other times of the day Blood 05/11/2024 4:34 PM EDT 05/11/2024 4:34 PM EDT Treva Diaz MD POINT OF CARE TEST ORDERABLES Performing Organization Address [facility] Co de Phone Number [facility] [place] [address] * (ABNORMAL) POCT Glucose (05/11/2024 11:47 AM EDT) Glucose, POC 255(H) 65 - 199 mg/dL [facility] Comment: Supplemental ranges: <140 mg/dL before meals <180 mg/dL all other times of the day Blood 05/11/2024 11:4 7 AM EDT 05/11/2024 11:47 AM EDT Treva Diaz MD POINT OF CARE TEST ORDERABLES Performing Organization Address [facility] Co de Phone Number [facility] [place] [address] * (ABNORMAL) POCT Glucose (05/11/2024 6:57 AM EDT) Glucose, POC 200(H) 65 - 199 mg/dL [facility] Comment: Supplemental ranges: <140 mg/dL before meals <180 mg/dL all other times of the day Blood 05/11/2024 6:57 AM EDT 05/11/2024 6:57 AM EDT Treva Diaz MD POINT OF CARE TEST ORDERABLES Performing Organization Address City/[facility]/ZIP Co de Phone Number [facility] [place] [address] * (ABNORMAL) Differential, Automated (05/11/2024 2:00 AM EDT) Neutrophil % 85.8 % [facility] Neutrophil Absolute 22.16(H) 1.70 - 6.10 x10(3)/mc L [facility] Lymph % 1.5 % [facility] Lymphocytes Abs 0.4(L) 0.9 - 3.2 x10(3)/mc L [facility] Monocyte % 4.9 % [facility] Monocyte Abs 1.3(H) 0.3 - 0.9 x10(3)/mc L [facility] Eos % 0.0 % [facility] Eosinophils Abs 0.0 0.0 - 0.4 x10(3)/ L [facility] Basophil % 0.1 % [facility] Baso Absolute 0.0 0.0 - 0.1 x10(3)/ L [facility] Immature Gran % 7.70 % [facility] Comment: Immature granulocytes(IG's)percentage and absolute count will include metamyelocytes, myelocytes, and promyelocytes. Blood smears from CBCs yielding IG's will be scanned manually for concordance. If this scan disagrees with the automated IG or if promyelocytes are noted, a manual differential will be performed. Immature Gran Absolute 1.98(H) 0.00 - 0.04 x10(3)/ L [facility] Blood 05/11/2024 2:00 AM EDT 05/11/2024 2:07 AM EDT Narrative Resulting Agency Comment Spec In Lab Carlotta Davis MD HEMATOLOGY OR DERABLES Performing Organization Address City/State/[facility] Co de Phone Number [facility] [place] [address] * (ABNORMAL) Hemogram (05/11/2024 2:00 AM EDT) White Blood Cell 25.8(H) 4.0 - 9.5 x10(3)/ L [facility] Red Blood Cell 3.64(L) 4.58 - 5.54 x10(6)/mc L [facility] Hemoglobin 10.9(L) 13.7 - 16.5 g/dL [facility] Hematocrit 32.5(L) 40.5 - 48.5 % [facility] Mean Cell Volume 89.3 82.9 - 93.1 fL [facility] Mean Cell Hemoglobin 29.9 27.5 - 32.1 pg [facility] Mean Cell Hemoglobin Concentration 33.5 32.0 - 35.7 g/dL [facility] Platelet 141(L) 145 - 357 x10(3)/mc L [facility] RDW Standard Deviation 51.2(H) 36.0 - 45.0 fL [facility] RDW coefficient of variation 15.6(H) 11.4 - 13.8 % [facility] Mean Platelet Volume 12.9 7.6 - 12.9 fL [facility] NRBC% auto 0.0 % [facility] NRBC Absolute 0.000 0.000 - 0.000 x10(3)/mc L [facility] Blood 05/11/2024 2:00 AM EDT 05/11/2024 2:07 AM EDT Narrative Resulting Agency Comment Spec In Lab Carlotta Davis MD HEMATOLOGY OR DERABLES Performing Organization Address City/[facility]/ZIP Co de Phone Number [facility] [place] [address] * Magnesium (05/11/2024 2:00 AM EDT) Magnesium 1.01 0.69 - 1.07 mmol/L [facility] Blood 05/11/2024 2:00 AM EDT 05/11/2024 2:07 AM EDT Narrative Resulting Agency Comment Spec In Lab Mary De La Fuente MD CHEMISTRY ORDERABL ES Performing Organization Address [facility]/ZIP Co de Phone Number [facility] [place] [phone] * Phosphorus (05/11/2024 2:00 AM EDT) Phosphorus 4.0 2.5 - 4.5 mg/dL [facility] Blood 05/11/2024 2:00 AM EDT 05/11/2024 2:07 AM EDT Narrative Resulting Agency Comment Spec In Lab Mary De La Fuente MD CHEMISTRY ORDERABL ES [facility] [place] [address] * (ABNORMAL) Basic Metabolic Panel (non-fasting) (05/11/2024 2:00 AM EDT) Glucose 212(H) 65 - 199 mg/dL [facility] Comment:Diabetes: >=200 mg/d L plus symptoms Blood Urea Nitrogen 72(H) 10 - 20 mg/dL [facility] Creatinine 2.58(H) 0.80 - 1.50 mg/dL [facility] Comment:result rechecked-HN Sodium 136 135 - 145 mmol/L [facility] Potassium 4.7 3.5 - 5.0 mmol/L [facility] Comment: Please note: ??Patients with WBC >100,000 may have falsely elevated Potassium levels. ??For accurate Potassium quantification in these patients send serum separator tube (gold top) for subsequent determinations. ??Contact the Clinical Chemistry Laboratory if there are any questions. Chloride 100 98 - 107 mmol/L [facility] Carbon Dioxide 24 22 - 31 mmol/L [facility] Anion Gap 12 5 - 15 mmol/L [facility] Calcium 8.3(L) 8.5 - 10.5 mg/dL [facility] Est Glomerular Filtration Rate 26(L) >=60 mL/min/1. 73 m?? [facility] Comment: This patient's estimated GFR was [...] urine creatinine clearance. Assignment of CKD stage 1-5 for patients with an eGFR near the transition point between stages may be based on clinical assessment of muscle mass and symptoms in addition to eGFR. Blood 05/11/2024 2:00 AM EDT 05/11/2024 2:07 AM EDT Narrative Resulting Agency Comment Spec In Lab Mary De La Fuente MD CHEMISTRY ORDERABL ES Performing Organization Address [facility] Co de Phone Number [facility] [place] [address] * Vancomycin Level, Random (05/11/2024 2:00 AM EDT) Vancomycin, Random 21.4 mg/L [facility] Comment: This level is for determination of the patient's vancomycin hith-irnmc-zvg-curve (AUC) value. Contact the inpatient pharmacy for interpretation. Blood 05/11/2024 2:00 AM EDT 05/11/2024 2:07 AM EDT Mary De La Fuente MD CHEMISTRY ORDERABL ES Performing Organization Address [facility] Phone Number [facility] [place] [address] * (ABNORMAL) POCT Glucose (05/10/2024 11:40 PM EDT) Glucose, POC 230(H) 65 - 199 mg/dL [facility] Comment: Supplemental ranges: <140 mg/dL before meals <180 mg/dL all other times of the day Blood 05/10/2024 11:4 0 PM EDT 05/10/2024 11:40 PM EDT Treva Diaz MD POINT OF CARE TEST ORDERABLES Performing Organization Address [facility] Co de Phone Number [facility] [place] [address] * POCT Glucose (05/10/2024 4:09 PM EDT) Glucose, POC 189 65 - 199 mg/dL [facility] Comment: Supplemental ranges: <140 mg/dL before meals <180 mg/dL all other times of the day Blood 05/10/2024 4:09 PM EDT 05/10/2024 4:09 PM EDT Treva Diaz MD POINT OF CARE TEST ORDERABLES [facility] [place] [address] * POCT Glucose (05/10/2024 12:11 PM EDT) Glucose, POC 185 65 - 199 mg/dL [facility] Comment: Supplemental ranges: <140 mg/dL before meals <180 mg/dL all other times of the day Blood 05/10/2024 12:1 1 PM EDT 05/10/2024 12:11 PM EDT Mary De La Fuente MD POINT OF CARE TEST ORDERABLES Performing Organization Address [facility] Co de Phone Number [facility] [place] [address] * Vancomycin Level, Random (05/10/2024 12:00 PM EDT) Vancomycin, Random 15.5 mg/L [facility] Comment: This level is for determination of the patient's vancomycin heih-etnaw-dnv-curve (AUC) value. Contact the inpatient pharmacy for interpretation. Blood 05/10/2024 12:0 0 PM EDT 05/10/2024 12:21 PM EDT Tho Dickson MD CHEMISTRY ORDERABLES Performing Organization Address City/[facility]/ZIP Co de Phone Number [facility] [place] [address] * POCT Glucose (05/10/2024 8:09 AM EDT) Glucose, POC 195 65 - 199 mg/dL [facility] Comment: Supplemental ranges: <140 mg/dL before meals <180 mg/dL all other times of the day Blood 05/10/2024 8:09 AM EDT 05/10/2024 8:09 AM EDT Mary De La Fuente MD POINT OF CARE TEST ORDERABLES [facility] [address] * CK (05/10/2024 6:55 AM EDT) [facility] Signature Creatine Kinase 58 0 - 200 unit/L [facility] Blood Venous Draw / Unknown 05/10/2024 6:55 AM EDT 05/10/2024 7:41 AM EDT Narrative Resulting Agency Comment Spec In Lab Emmanuel Corey DO CHEMISTRY ORDERABLES Performing Organization Address City/[facility]/ZIP Co de Phone Number [facility] [place] [address] * (ABNORMAL) Phosphorus (05/10/2024 6:55 AM EDT) Phosphorus 5.1(H) 2.5 - 4.5 mg/dL [facility] Blood 05/10/2024 6:55 AM EDT 05/10/2024 6:59 AM EDT Narrative Resulting Agency Comment Spec In Lab Tho Dickson MD CHEMISTRY ORDERABLES Performing Organization Address City/[facility]/ZIP Co de Phone Number [facility] [place] [address] * (ABNORMAL) Basic Metabolic Panel (non-fasting) (05/10/2024 6:55 AM EDT) Glucose 193 65 - 199 mg/dL [facility] Comment:Diabetes: >=200 mg/d L plus symptoms Blood Urea Nitrogen 69(H) 10 - 20 mg/dL [facility] Creatinine 3.75(H) 0.80 - 1.50 mg/dL [facility] Sodium 128(L) 135 - 145 mmol/L [facility] Potassium 5.0 3.5 - 5.0 mmol/L [facility] Comment: Please note: ??Patients with WBC >100,000 may have falsely elevated Potassium levels. ??For accurate Potassium quantification in these patients send serum separator tube (gold top) for subsequent determinations. ??Contact the Clinical Chemistry Laboratory if there are any questions. Chloride 93(L) 98 - 107 mmol/L [facility] Carbon Dioxide 23 22 - 31 mmol/L [facility] Anion Gap 12 5 - 15 mmol/L [facility] Calcium 8.6 8.5 - 10.5 mg/dL [facility] Est Glomerular Filtration Rate 17(L) >=60 mL/min/1. 73 m?? [facility] Comment: This patient's estimated GFR was [...] urine creatinine clearance. Assignment of CKD stage 1-5 for patients with an eGFR near the transition point between stages may be based on clinical assessment of muscle mass and symptoms in addition to eGFR. Blood 05/10/2024 6:55 AM EDT 05/10/2024 6:59 AM EDT Narrative Resulting Agency Comment Spec In Lab Tho Dickson MD CHEMISTRY ORDERABLES [facility] [place] [address] * Lactate, whole blood, send to lab ([facility]) (05/10/2024 6:55 AM EDT) Lactate WB 1.7 0.5 - 2.2 mmol/L [facility] Blood 05/10/2024 6:55 AM EDT 05/10/2024 7:00 AM EDT Narrative Resulting Agency Comment Spec In Lab Tho Dickson MD CHEMISTRY ORDERABLES [facility] [place] [place] [address] * MRI Foot wwo Contrast Right (05/10/2024 5:51 AM EDT) WORKSTATION ID [id number] RAD Anatomical Region Laterality Modality Foot Right Magnetic [...] have questions please contact the health care connector that requested your imaging first. ? Narrative [...] who have questions please contactthe health care connector that requested your imaging first. Tho Dickson MD [facility] MRI ORDERABLES * Creatinine, urine, random (05/10/2024 4:15 AM EDT) Creatinine, Urine 106 mg/dL [facility] Urine 05/10/2024 4:15 AM EDT 05/10/2024 4:23 AM EDT Narrative Resulting Agency Comment Spec In Lab Tho Dickson MD URINE ORDERABLES [facility] [place] [address] * Sodium, urine, random (05/10/2024 4:15 AM EDT) Sodium, Urine <20 mmol/L [facility] Urine 05/10/2024 4:15 AM EDT 05/10/2024 4:23 AM EDT Narrative Resulting Agency Comment Spec In Lab Tho Dickson MD URINE ORDERABLES Performing Organization Address [facility] Co de Phone Number [facility] [place] [address] * Urea nitrogen, urine, random (05/10/2024 4:15 AM EDT) Urea Nitrogen, Urine 580 mg/dL [facility] Urine 05/10/2024 4:15 AM EDT 05/10/2024 4:23 AM EDT Narrative Resulting Agency Comment Spec In Lab Tho Dickson MD URINE ORDERABLES Performing Organization Address [facility] Co de Phone Number [facility] [place] [address] * (ABNORMAL) Skin/Superficial Wound Culture Toe (05/10/2024 2:56 AM EDT) Skin/Superfic ial Wound Culture Rare mixed bacterial morphotypes suggestive of normal cutaneous armani including Rare Gram Negative Rods (A) [facility] Gram Stain Many Neutrophils seen Few Gram Positive Cocci seen (A) [facility] Organism Gram Negative Rods(A) [facility] Organism Gram Positive Cocci(A) [facility] Superficial Wound TOE STRUCTURE / Unknown 05/10/2024 2:56 AM EDT 05/10/2024 5:18 AM EDT Comment:Right toe wound Narrative Resulting Agency Comment Spec In Lab Tho Dickson MD MICROBIOLOGY - GENER AL ORDERABLES Performing Organization Address [facility]/ZIP Co de Phone Number [facility] [place] [address] * (ABNORMAL) Urinalysis without microscopic (05/10/2024 2:42 AM EDT) Glucose, Urine Dipstick Negative Negative mg/dL [facility] Protein, Urine Dipstick 30(A) Negative mg/dL [facility] Bilirubin, Urine Dipstick Negative Negative mg/dL [facility] Comment: Clinical correlation required for positive Urine Bilirubin results as false positive may occur with some drugs and drug related products. If a false positive is suspected a serum total bilirubin should be considered if clinically indicated. Urobilinogen, Urine Dipstick Normal Normal mg/dL [facility] pH, Urn (dipstick) 5.5 5.0 - 8.0 [facility] Blood, Urine Dipstick Large(A) Negative mg/dL [facility] Ketone, Urine Dipstick Negative Negative mg/dL [facility] Nitrite, Urine Dipstick Negative Negative [facility] Leukocytes, Urine Dipstick Small(A) Negative [facility] Appearance, Urine Dipstick Cloudy(A) Clear [facility] Specific [place] Urine Automated 1.017 1.005 - 1.030 [facility] Color, Urine Dipstick Hood(A) Yellow [facility] Urine 05/10/2024 2:42 AM EDT 05/10/2024 2:57 AM EDT Narrative Resulting Agency Comment Spec In Lab Tho Dickson MD URINE ORDERABLES Performing Organization Address City/State/[place] Co de Phone Number [facility] [place] [place] [address] * XR Chest One View (05/10/2024 2:37 AM EDT) WORKSTATION ID [id number] RAD Anatomical Region Laterality Modality Chest N/A Digital Radiogra phy Impressions 05/10/2024 3:27 AM EDT Bibasilar atelectasis. Thank you for letting us participate in the care of this patient. ??If you are a health care provider and have any questions regarding this report, please contact the number below. ??For patients who have questions please contact the health care connector that requested your imaging first. ? Narrative [...] who have questions please contactthe health care connector that requested your imaging first. Tho Dickson MD IMG DX ORDERABLES * Blood culture (05/10/2024 2:32 AM EDT) Blood Culture No growth at 5 days. [facility] Blood STRUCTURE OF RIGHT HAND / Unknown 05/10/2024 2:32 AM EDT 05/10/2024 4:17 AM EDT Narrative Resulting Agency Comment Spec In Lab Tho Dickson MD MICROBIOLOGY - BLOOD ORDERABLES Performing Organization Address [facility]/ZIP Co de Phone Number [facility] [place] [address] * (ABNORMAL) POCT Glucose (05/10/2024 2:30 AM EDT) Pathologist [facility] [place] Glucose, POC 201(H) 65 - 199 mg/dL [facility] Comment: Supplemental ranges: <140 mg/dL before meals <180 mg/dL all other times of the day Blood 05/10/2024 2:30 AM EDT 05/10/2024 2:30 AM EDT Tho Dickson MD POINT OF CARE TEST O RDERABLES Performing Organization Address [facility]/[place] Co de Phone Number [facility] [place] [address] * Vancomycin Level, Random (05/10/2024 2:20 AM EDT) Pathologist [facility] [place] Vancomycin, Random 26.9 mg/L [facility] Comment: This level is for determination of the patient's vancomycin poqu-zrvdb-pej-curve (AUC) value. Contact the inpatient pharmacy for interpretation. Blood Venous Draw / Unknown 05/10/2024 2:20 AM EDT 05/10/2024 2:38 AM EDT Tho Dickson MD CHEMISTRY ORDERABLES Performing Organization Address City/[facility]/ZIP Co de Phone Number [facility] [place] [address] * Scan, Peripheral Blood (05/10/2024 2:20 AM EDT) Plat estimate Normal [facility] RBC Morphology Abnormal [facility] Ovalocytes 1-5 /HPF [facility] [place] Cells 1-5 /HPF [facility] Plat, Giant Less than 1 /HPF [facility] Blood 05/10/2024 2:20 AM EDT 05/10/2024 2:36 AM EDT Narrative Resulting Agency Comment Spec In Lab Anita Camacho MD HEMATOLOGY ORDERABLE S [facility] [place] [place] [address] * Type and Screen Validity (05/10/2024 2:20 AM EDT) T&S only valid at [facility] Comment:This Type and Screen result is only valid at the [facility] Blood 05/10/2024 2:20 AM EDT 05/10/2024 2:49 AM EDT Narrative Resulting Agency Comment Spec In Lab Anita Camacho MD BLOOD BANK LAB ORDER ANGELIQUE [facility] [place] [address] * ABORH Recheck Status (05/10/2024 2:20 AM EDT) ABORH Recheck Order Order Placed [facility] ABORH Type Recheck Completed [facility] Blood 05/10/2024 2:20 AM EDT 05/10/2024 2:49 AM EDT Narrative Resulting Agency Comment Spec In Lab Anita Camacho MD BLOOD BANK LAB ORDER ANGELIQUE [facility] [place] [address] * (ABNORMAL) Differential, Automated (05/10/2024 2:20 AM EDT) Neutrophil % 89.2 % [facility] Neutrophil Absolute 25.39(H) 1.70 - 6.10 x10(3)/mc L [facility] Lymph % 1.2 % [facility] Lymphocytes Abs 0.4(L) 0.9 - 3.2 x10(3)/mc L [facility] Monocyte % 2.9 % [facility] Monocyte Abs 0.8 0.3 - 0.9 x10(3)/mc L [facility] Eos % 0.0 % [facility] Eosinophils Abs 0.0 0.0 - 0.4 x10(3)/[facility] Basophil % 0.2 % [facility] Baso Absolute 0.1 0.0 - 0.1 x10(3)/mc L [facility] Immature Gran % 6.50 % [facility] Comment: Immature granulocytes(IG's)percentage and absolute count will include metamyelocytes, myelocytes, and promyelocytes. Blood smears from CBCs yielding IG's will be scanned manually for concordance. If this scan disagrees with the automated IG or if promyelocytes are noted, a manual differential will be performed. Immature Gran Absolute 1.85(H) 0.00 - 0.04 x10(3)/mc L [facility] Blood 05/10/2024 2:20 AM EDT 05/10/2024 2:36 AM EDT Narrative Resulting Agency Comment Spec In Lab Anita Camacho MD HEMATOLOGY ORDERABLE S Performing Organization Address [facility]/ZIP Co de Phone Number [facility] [place] [address] * (ABNORMAL) Hemogram (05/10/2024 2:20 AM EDT) White Blood Cell 28.5(H) 4.0 - 9.5 x10(3)/ L [facility] Red Blood Cell 3.83(L) 4.58 - 5.54 x10(6)/mc L [facility] Hemoglobin 11.4(L) 13.7 - 16.5 g/dL [facility] Hematocrit 34.5(L) 40.5 - 48.5 % [facility] Mean Cell Volume 90.1 82.9 - 93.1 fL [facility] Mean Cell Hemoglobin 29.8 27.5 - 32.1 pg [facility] Mean Cell Hemoglobin Concentration 33.0 32.0 - 35.7 g/dL [facility] Platelet 135(L) 145 - 357 x10(3)/[facility] RDW Standard Deviation 51.9(H) 36.0 - 45.0 [facility] RDW coefficient of variation 15.6(H) 11.4 - 13.8 % [facility] Mean Platelet Volume 12.8 7.6 - 12.9 [facility] NRBC% auto 0.0 % [facility] NRBC Absolute 0.000 0.000 - 0.000 x10(3)/[facility] Blood 05/10/2024 2:20 AM EDT 05/10/2024 2:36 AM EDT Narrative Resulting Agency Comment Spec In Lab Anita Camacho MD HEMATOLOGY ORDERABLE S [facility] [place] [address] * (ABNORMAL) Hemoglobin A1c (05/10/2024 2:20 AM EDT) Hemoglobin A1c 5.9(H) 4.3 - 5.6 % [facility] Comment: Reference Range: 4.3 - 5.6% [...] Mellitus, Diabetes Care 2013; 36: Suppl. 1, X93-14 Estimated Average Glucose See note mg/dL [facility] Comment: Estimated Average Glucose not appropriate for patients over 70 years of age. Blood 05/10/2024 2:20 AM EDT 05/10/2024 2:36 AM EDT Narrative Resulting Agency Comment Spec In Lab Tho Dickson MD CHEMISTRY ORDERABLES Performing Organization Address [facility]/[place] Co de Phone Number [facility] [place] [address] * Hepatic Function Panel (05/10/2024 2:20 AM EDT) Protein, Total 7.6 6.1 - 8.0 g/dL [facility] Albumin 3.3 3.2 - 5.2 g/dL [facility] Aspartate Aminotransferase 21 0 - 39 unit/L [facility] Alanine Aminotransferase 19 0 - 55 unit/L [facility] Alkaline Phosphatase 42 40 - 130 unit/L [facility] Bilirubin, Total 0.5 0.2 - 1.3 mg/dL [facility] Bilirubin, Direct 0.2 0.0 - 0.3 mg/dL [facility] Blood 05/10/2024 2:20 AM EDT 05/10/2024 2:36 AM EDT Narrative Resulting Agency Comment Spec In Lab Tho Dickson MD CHEMISTRY ORDERABLES Performing Organization Address [facility]/[place] Co de Phone Number [facility] [place] [address] * (ABNORMAL) Phosphorus (05/10/2024 2:20 AM EDT) Phosphorus 4.6(H) 2.5 - 4.5 mg/dL [facility] Blood 05/10/2024 2:20 AM EDT 05/10/2024 2:36 AM EDT Narrative Resulting Agency Comment Spec In Lab Tho Dickson MD CHEMISTRY ORDERABLES Performing Organization Address [facility]/ZIP Co de Phone Number [facility] [place] [address] * Magnesium (05/10/2024 2:20 AM EDT) Pathologist [facility] [place] Magnesium 0.85 0.69 - 1.07 mmol/L [facility] Blood 05/10/2024 2:20 AM EDT 05/10/2024 2:36 AM EDT Narrative Resulting Agency Comment Spec In Lab Tho Dickson MD CHEMISTRY ORDERABLES Performing Organization Address [facility]/[place] Co de Phone Number [facility] [place] [address] * (ABNORMAL) Basic Metabolic Panel (non-fasting) (05/10/2024 2:20 AM EDT) [facility] Glucose 196 65 - 199 mg/dL [facility] Comment:Diabetes: >=200 mg/d L plus symptoms Blood Urea Nitrogen 71(H) 10 - 20 mg/dL [facility] Creatinine 3.94(H) 0.80 - 1.50 mg/dL [facility] Sodium 129(L) 135 - 145 mmol/L [facility] Potassium 5.3(H) 3.5 - 5.0 mmol/L [facility] Comment: Please note: ??Patients with WBC >100,000 may have falsely elevated Potassium levels. ??For accurate Potassium quantification in these patients send serum separator tube (gold top) for subsequent determinations. ??Contact the Clinical Chemistry Laboratory if there are any questions. Chloride 93(L) 98 - 107 mmol/L [facility] Carbon Dioxide 24 22 - 31 mmol/L [facility] Anion Gap 12 5 - 15 mmol/L [facility] Calcium 8.5 8.5 - 10.5 mg/dL [facility] Est Glomerular Filtration Rate 16(L) >=60 mL/min/1. 73 m?? [facility] Comment: This patient's estimated GFR was [...] urine creatinine clearance. Assignment of CKD stage 1-5 for patients with an eGFR near the transition point between stages may be based on clinical assessment of muscle mass and symptoms in addition to eGFR. Blood 05/10/2024 2:20 AM EDT 05/10/2024 2:36 AM EDT Narrative Resulting Agency Comment Spec In Lab Tho Dickson MD CHEMISTRY ORDERABLES [facility] [place] [address] * (ABNORMAL) Prothrombin Time (05/10/2024 2:20 AM EDT) Prothrombin Time 27.9(H) 9.4 - 12.5 sec [facility] International Normalization Ratio 2.5 [facility] Comment: An INR <2.0 indicates adequate [...] Narrative Resulting Agency Comment Spec In Lab Tho Dickson MD HEMATOLOGY ORDERABLE S [facility] [place] [address] * Type and screen ([facility]) (05/10/2024 2:20 AM EDT) ABORH Type O POSITIVE [facility] Patient BB History Not Found [facility] Expires at [id number] on: 05-13-2024 [facility] Ab Screen Interp Negative [facility] Blood 05/10/2024 2:20 AM EDT 05/10/2024 2:20 AM EDT Narrative [facility] - 05/10/2024 2:20 AM EDT This Type and Screen result is only valid at the [facility] Resulting Agency Comment Spec In Lab Tho Dickson MD BLOOD BANK LAB ORDER ANGELIQUE Performing Organization Address City/[facility]/ZIP Co de Phone Number [facility] [place] [address] * (ABNORMAL) Lactate, whole blood, send to lab ([facility]) (05/10/2024 2:20 AM EDT) Lactate WB 2.3(H) 0.5 - 2.2 mmol/L [facility] Blood 05/10/2024 2:20 AM EDT 05/10/2024 2:36 AM EDT Narrative Resulting Agency Comment Spec In Lab Tho Dickson MD CHEMISTRY ORDERABLES Performing Organization Address City/[facility]/ZIP Co de Phone Number [facility] [place] [address] documented in this encounter Visit Diagnoses Diagnosis Septic shock- Primary Septic shock Altered tissue perfusion Other symptoms involving cardiovascular system Osteomyelitis of second toe of right foot Stage 4 chronic kidney disease documented in this encounter Admitting Diagnoses Diagnosis Septic shock documented in this encounter Administered Medications Inactive Administered Medications - up to 3 most recent administrations Medication Order MAR Action Action Date Dose Rate Site acetaminophen (Tylenol) tablet 975 mg 975 mg, Oral, EVERY 8 HOURS PRN, Starting on Sun05/10/24 at 0412, Until Sun05/23/24 at 1815, Pain, Fever, Maximum dose of acetaminophen is 4,000 mg from all sources in 24 hours. When ordered for pain, acetaminophen should be given even when other ordered pain medications are indicated., Routine Given 05/23/2024 8:32 AM EDT 975 mg Given 05/22/2024 4:34 AM EDT 975 mg Given 05/21/2024 1:00 PM EDT 975 mg albuteroL (Proventil, Ventolin) (2.5 mg/3 mL) (0.083 %) nebulizer solution 2.5 mg 2.5 mg, Nebulization, EVERY 4 HOURS PRN, Starting on Sun05/14/24 at 1247, Until Sun05/14/24 at 1343, Shortness of Breath, PACU Recovery, Routine Given 05/14/2024 12:48 PM EDT 2.5 mg carvediloL (Coreg) tablet 12.5 mg 12.5 mg, Oral, 2 TIMES DAILY, First dose on Sun05/11/24 at 1130, Until Discontinued, Routine Given 05/13/2024 10:18 AM EDT 12.5 mg Given 05/12/2024 9:44 PM EDT 12.5 mg Given 05/12/2024 9:24 AM EDT 12.5 mg carvediloL (Coreg) tablet 25 mg 25 mg, Oral, 2 TIMES DAILY, First dose (after last modification) on Sun05/13/24 at 2100, Until Discontinued, Routine Given 05/23/2024 8:32 AM EDT 25 mg Given 05/22/2024 9:10 PM EDT 25 mg Given 05/22/2024 8:19 AM EDT 25 mg cefTRIAXone (Rocephin) 2 g vial attach to sodium chloride 0.9% 50 mL Mini-Bag Plus 2 g, Intravenous, EVERY 24 HOURS, First dose on Sun05/14/24 at 1600, Until Discontinued, Administer over 30 Minutes, Indication for (Active or Suspected): Bone/Joint Restarted 05/22/2024 6:39 PM EDT 100 mL/h r New Bag 05/21/2024 5:12 PM EDT 2 g 100 mL/hr New Bag 05/20/2024 5:48 PM EDT 2 g 100 mL/hr dextrose 10% infusion 250 mL, at 1,000 mL/hr, Intravenous, EVERY 15 MIN PRN, Starting on 05/10/24 at 0225, Until Sun05/23/24 at 1815, For BG 50-70 mg/dL: Oral treatment preferred: If able to drink, give 120 mL juice or regular (not diet) soda OR if NPO, give 15 gram glucose 40% oral gel massaged into buccal mucosa OR if unconscious or uncooperative, give 25 gram (250 mL) dextrose 10% IV over 15 minutes per protocol OR, if no IV access, 1 mg glucagon IM. For BG less than 50 mg/dL: Oral treatment preferred: If able to drink, give 240 mL juice or regular (not diet) soda OR if NPO, give 30 gram glucose 40% oral gel massaged in buccal mucosa OR if unconscious or uncooperative, give 25 gram (250 mL) dextrose 10% IV over 15 minutes per protocol OR, if no IV access, 1 mg glucagon IM. Recheck BG in 15 minutes. May repeat juice/soda, gel, dextrose or glucagon once per episode. Notify provider if hypoglycemia does not resolve after two treatments. Providers should consider the following: administering longer-acting treatments for the duration of active insulin or hypoglycemia agent for persistent hypoglycemia and re-evaluating active insulin orders before administering the next dose. dilTIAZem (Cardizem) tablet 60 mg 60 mg, Oral, EVERY 6 HOURS SCHEDULED, First dose on 05/11/24 at 0900, Until Discontinued, HOLD for SBP <90 or HR <60, Routine Given 05/23/2024 12:27 PM EDT 60 mg Given 05/23/2024 6:00 AM EDT 60 mg Given 05/23/2024 1:14 AM EDT 60 mg dilTIAZem XR (Dilacor XR) capsule 240 mg 240 mg, Oral, DAILY, First dose on 05/10/24 at 0900, Until Discontinued, DO NOT CRUSH OR OPEN HOLD FOR SBP <120, Routine Given 05/10/2024 9:00 AM EDT 240 mg epoetin leah-epbx (Retacrit) injection 10,000 Units 10,000 Units, Subcutaneous, DAILY, 3 doses, First dose on Sun05/21/24 at 1800, Last dose on Sun05/23/24 at 0900, Routine, What is the indication of use? Chronic Kidney Disease (CKD) Given 05/23/2024 8:31 AM EDT 10,000 Units Given 05/21/2024 8:39 PM EDT 10,000 Units fentaNYL (pf) (50 mcg/mL) multi-dose injection 25-50 mcg 25-50 mcg, Intravenous, EVERY 3 MIN PRN, Starting on Sun05/21/24 at 0916, Until Sun05/21/24 at 1256, Pain, per unit protocol, For use in Interventional Radiology (IR) only for procedural sedation with direct provider supervision and verbal order. - Start dose: 50 mcg (reduce dose to 25 mcg if history of sedation sensitivity). - Titration dose: 25-50 mcg IV, (based on patient response) every 3 minutes PRN to maintain procedural pain less than 2 per Pain Scale. Maximum dose: 50 mcg/dose, 250 mcg/hour, Angio/IR (Intra-Procedure), Routine Given 05/21/2024 11:00 AM EDT 50 mcg Given 05/21/2024 10:56 AM EDT 50 mcg furosemide (Lasix) tablet 40 mg 40 mg, Oral, EVERY MORNING, First dose on Sun05/21/24 at 1115, Until Discontinued, Routine Given 05/23/2024 6:20 AM EDT 40 mg Given 05/22/2024 6:41 AM EDT 40 mg furosemide (Lasix) tablet 40 mg 40 mg, Oral, DAILY, First dose (after last modification) on Sun05/24/24 at 0900, Until Discontinued, Routine gadoterate meglumine (Dotarem) (0.5 mMol/mL) injection solution 0-100 mL 0-100 mL, Intravenous, ONCE PRN, 1 dose, Starting on Sun05/10/24 at 0534, Until Sun05/10/24 at 0524, Per Protocol, Radiology Contrast, Routine Given 05/10/2024 5:24 AM EDT 30 mLs glucagon (Glucagen) (1 mg/mL) injection solution 1 mg 1 mg, Intramuscular, EVERY 15 MIN PRN, Starting on Sun05/10/24 at 0225, Until Sun05/23/24 at 1815, Low blood sugar, For BG 50-70 mg/dL: Oral treatment preferred: If able to drink, give 120 mL juice or regular (not diet) soda OR if NPO, give 15 gram glucose 40% oral gel massaged into buccal mucosa OR if unconscious or uncooperative, give 25 gram (250 mL) dextrose 10% IV over 15 minutes per protocol OR, if no IV access, 1 mg glucagon IM. For BG less than 50 mg/dL: Oral treatment preferred: If able to drink, give 240 mL juice or regular (not diet) soda OR if NPO, give 30 gram glucose 40% oral gel massaged in buccal mucosa OR if unconscious or uncooperative, give 25 gram (250 mL) dextrose 10% IV over 15 minutes per protocol OR, if no IV access, 1 mg glucagon IM. Recheck BG in 15 minutes. May repeat juice/soda, gel, dextrose or glucagon once per episode. Notify provider if hypoglycemia does not resolve after two treatments. Providers should consider the following: administering longer-acting treatments for the duration of active insulin or hypoglycemia agent for persistent hypoglycemia and re-evaluating active insulin orders before administering the next dose. , Routine glucose (Glutose) 40% oral geL 15-30 g of glucose, Buccal, EVERY 15 MIN PRN, Starting on 05/10/24 at 0225, Until Sun05/23/24 at 1815, Low blood sugar, For BG 50-70 mg/dL: Oral treatment preferred: If able to drink, give 120 mL juice or regular (not diet) soda OR if NPO, give 15 gram glucose 40% oral gel massaged into buccal mucosa OR if unconscious or uncooperative, give 25 gram (250 mL) dextrose 10% IV over 15 minutes per protocol OR, if no IV access, 1 mg glucagon IM. For BG less than 50 mg/dL: Oral treatment preferred: If able to drink, give 240 mL juice or regular (not diet) soda OR if NPO, give 30 gram glucose 40% oral gel massaged in buccal mucosa OR if unconscious or uncooperative, give 25 gram (250 mL) dextrose 10% IV over 15 minutes per protocol OR, if no IV access, 1 mg glucagon IM. Recheck BG in 15 minutes. May repeat juice/soda, gel, dextrose or glucagon once per episode. Notify provider if hypoglycemia does not resolve after two treatments. Providers should consider the following: administering longer-acting treatments for the duration of active insulin or hypoglycemia agent for persistent hypoglycemia and re-evaluating active insulin orders before administering the next dose. 1 tube of Glutose-15 contains 15 grams of glucose (net weight of tube = 37.5 grams.), Routine heparin (porcine) (5,000 units/1 mL) subcutaneous injection 7,500 Units 7,500 Units, Subcutaneous, EVERY 8 HOURS SCHEDULED, First dose (after last modification) on 05/10/24 at 1700, Until Discontinued, Routine Given 05/15/2024 3:40 PM EDT 7,500 Units Given 05/15/2024 8:30 AM EDT 7,500 Units Given 05/15/2024 12:05 AM EDT 7,500 Units Abdominal Tissue insulin glargine-ygfn (Semglee) (100 unit/mL) subcutaneous injection vial 10 Units 10 Units, Subcutaneous, DAILY, First dose on Sun05/11/24 at 0900, Until Discontinued, Routine Given 05/11/2024 8:11 AM EDT 10 Units Left Upper Outer Quadrant insulin glargine-ygfn (Semglee) (100 unit/mL) subcutaneous injection vial 12 Units 12 Units, Subcutaneous, DAILY, First dose (after last modification) on Sun05/12/24 at 0900, Until Discontinued, Routine Given 05/14/2024 9:15 PM EDT 12 Units Right Arm Given 05/13/2024 8:48 PM EDT 12 Units Given 05/12/2024 8:46 PM EDT 12 Units insulin glargine-ygfn (Semglee) (100 unit/mL) subcutaneous injection vial 12 Units 12 Units, Subcutaneous, NIGHTLY, First dose (after last modification) on Blank 05/15/24 at 2100, Until Discontinued, Routine Given 05/18/2024 9:09 PM EDT 12 Units Given 05/17/2024 8:14 PM EDT 12 Units Le ft Arm Given 05/16/2024 9:10 PM EDT 12 Units Ri ght Arm insulin glargine-ygfn (Semglee) (100 unit/mL) subcutaneous injection vial 14 Units 14 Units, Subcutaneous, NIGHTLY, First dose (after last modification) on Sun05/19/24 at 2100, Until Discontinued, Routine Given 05/22/2024 9:10 PM EDT 14 Units Given 05/21/2024 8:40 PM EDT 14 Units Given 05/20/2024 8:28 PM EDT 14 Units insulin lispro (HumaLOG;Admelog) (100 unit/mL) subcutaneous injection vial 0-8 Units 0-8 Units, Subcutaneous, 3 TIMES DAILY WITH MEALS, First dose on 05/11/24 at 0800, Until Discontinued, MEAL ASSOCIATED Give 1 unit for every 10 grams carbohydrate. Hold if not eating or if BG less than 70 mg/dL. , Routine Given 05/11/2024 1:40 PM EDT 5 Units Given 05/11/2024 8:49 AM EDT 4 Units Le ft Arm insulin lispro (HumaLOG;Admelog) (100 unit/mL) subcutaneous injection vial 0-8 Units 0-8 Units, Subcutaneous, 4 TIMES DAILY BEFORE MEALS & NIGHTLY, First dose (after last modification) on Sun05/11/24 at 2100, Until Discontinued, MEAL ASSOCIATED Give 1 unit for every 10 grams carbohydrate. Hold if not eating or if BG less than 70 mg/dL. , Routine Given 05/14/2024 7:07 PM EDT 8 Units Given 05/13/2024 8:47 PM EDT 4 Units Given 05/12/2024 6:36 PM EDT 3 Units insulin lispro (HumaLOG;Admelog) (100 unit/mL) subcutaneous injection vial 0-8 Units 0-8 Units, Subcutaneous, 3 TIMES DAILY WITH MEALS, First dose on Sun05/15/24 at 0800, Until Discontinued, MEAL ASSOCIATED Give 1 unit for every 10 grams carbohydrate. Hold if not eating or if BG less than 70 mg/dL. , Routine Given 05/23/2024 12:57 PM EDT 4 Units Given 05/23/2024 8:32 AM EDT 2 Units Given 05/21/2024 2:13 PM EDT 4 Units insulin lispro (HumaLOG;Admelog) (100 unit/mL) subcutaneous injection vial 1-4 Units 1-4 Units, Subcutaneous, 3 TIMES DAILY BEFORE MEALS, First dose on Sun05/11/24 at 0730, Until Discontinued, CORRECTION BOLUS [1-4 Units] Sensitive Sliding Scale (BG in mg/dL): Correction factor 40 (1 unit of insulin is expected to drop the glucose 40 mg/dL) ?? BG 160 - 200 Give 1 unit BG 201 - 240 Give 2 units BG 241 - 280 Give 3 units and recheck BG in 2 hours. BG greater than 280, give 4 units and recheck BG in 2 hours. - If recheck BG is LESS than 280, give no insulin and resume schedule - If recheck BG is GREATER than or EQUAL to 280, give 4 units and repeat BG in 2 hours & call for new insulin orders. DO NOT hold if NPO, unless specifically told to do so. ?? Per Inpatient Subcutaneous Insulin Policy, recheck a BG of greater than 240 mg/dL in 2 hours., Routine Given 05/14/2024 5:20 PM EDT 1 Units Given 05/14/2024 8:00 AM EDT 2 Units Given 05/13/2024 11:26 AM EDT 1 Units insulin lispro (HumaLOG;Admelog) (100 unit/mL) subcutaneous injection vial 1-6 Units 1-6 Units, Subcutaneous, EVERY 4 HOURS SCHEDULED, First dose on 05/10/24 at 0400, Until Discontinued, CORRECTION BOLUS [1-6 Units] Moderate Sliding Scale (BG in mg/dL): Correction factor 20 (1 unit of insulin is expected to drop the glucose 20 mg/dL) BG 140 - 160 Give 1 unit BG 161 - 180 Give 2 units BG 181 - 200 Give 3 units BG 201 - 220 Give 4 units BG 221 - 240 Give 5 units BG greater than 240, give 6 units and recheck BG in 2 hours. - If recheck BG is LESS than 240, give no insulin and resume schedule. - If recheck BG is GREATER than or EQUAL to 240, give 6 units and repeat BG in 2 hours (no more than 3 times) & call for new insulin orders. DO NOT hold if NPO, unless specifically directed to do so by written order. ?? Per Inpatient Subcutaneous Insulin Policy, recheck a BG of greater than 240 mg/dL in 2 hours., Routine Given 05/10/2024 4:10 PM EDT 3 Units Given 05/10/2024 12:13 PM EDT 3 Units Given 05/10/2024 8:09 AM EDT 3 Units insulin lispro (HumaLOG;Admelog) (100 unit/mL) subcutaneous injection vial 1-6 Units 1-6 Units, Subcutaneous, EVERY 4 HOURS SCHEDULED, First dose on Blank 05/15/24 at 0400, Until Discontinued, CORRECTION BOLUS [1-6 Units] Moderate Sliding Scale (BG in mg/dL): Correction factor 20 (1 unit of insulin is expected to drop the glucose 20 mg/dL) BG 140 - 160 Give 1 unit BG 161 - 180 Give 2 units BG 181 - 200 Give 3 units BG 201 - 220 Give 4 units BG 221 - 240 Give 5 units BG greater than 240, give 6 units and recheck BG in 2 hours. - If recheck BG is LESS than 240, give no insulin and resume schedule. - If recheck BG is GREATER than or EQUAL to 240, give 6 units and repeat BG in 2 hours (no more than 3 times) & call for new insulin orders. DO NOT hold if NPO, unless specifically directed to do so by written order. ?? Per Inpatient Subcutaneous Insulin Policy, recheck a BG of greater than 240 mg/dL in 2 hours., Routine Given 05/23/2024 3:50 AM EDT 1 Units Given 05/22/2024 9:09 PM EDT 1 Units Given 05/22/2024 3:53 AM EDT 1 Units ipratropium-albuteroL (Duoneb) 0.5 mg-3 mg(2.5 mg base)/3 mL nebulizer solution 3 mL 3 mL, Nebulization, EVERY 4 HOURS PRN, Starting on 05/10/24 at 0330, Until 05/18/24 at 1405, Wheezing, Routine Given 05/18/2024 4:50 AM EDT 3 mLs Given 05/17/2024 7:01 PM EDT 3 mLs Given 05/17/2024 8:59 AM EDT 3 mLs ipratropium-albuteroL (Duoneb) 0.5 mg-3 mg(2.5 mg base)/3 mL nebulizer solution 3 mL 3 mL, Nebulization, EVERY 4 HOURS, First dose (after last modification) on 05/18/24 at 1430, Until Discontinued, Routine Given 05/22/2024 6:41 AM EDT 3 mLs Given 05/22/2024 3:53 AM EDT 3 mLs Given 05/21/2024 9:56 PM EDT 3 mLs ipratropium-albuteroL (Duoneb) 0.5 mg-3 mg(2.5 mg base)/3 mL nebulizer solution 3 mL 3 mL, Nebulization, EVERY 6 HOURS, First dose (after last modification) on Blank 05/22/24 at 1230, Until Discontinued, Routine Given 05/23/2024 12:27 PM EDT 3 mLs Given 05/22/2024 6:43 PM EDT 3 mLs lactated ringers infusion 100 mL/hr, Intravenous, CONTINUOUS, Starting on Sun05/14/24 at 0745, Until Sun05/14/24 at 1527 New Bag 05/14/2024 8:09 AM EDT 100 mL/hr 100 mL/hr lactobacillus acidophilus capsule 1 capsule 1 capsule, Oral, DAILY, First dose on [place] 05/18/24 at 0900, Until Discontinued, Routine Given 05/23/2024 8:32 AM EDT 1 capsule Given 05/22/2024 8:19 AM EDT 1 capsule Given 05/21/2024 1:00 PM EDT 1 capsule lidocaine (Xylocaine) 1% (10 mg/mL) injection 10 mg 10 mg, Subcutaneous, ONCE, 1 dose, On Sun05/21/24 at 0945, For use in Interventional Radiology (IR) only for procedure with direct provider supervision and verbal order., Angio/IR (Intra-Procedure), Routine Given 05/21/2024 11:17 AM EDT 10 mg lidocaine-EPINEPHrine (1% - 1:100,000) injection 20 mL 20 mL, Intradermal, ONCE, 1 dose, On Sun05/21/24 at 0945, For use in Interventional Radiology (IR) only for procedure with direct provider supervision and verbal order. *This order is NOT a Venous Ablation Order / Dose., Angio/IR (Intra-Procedure), Routine Given 05/21/2024 11:24 AM EDT 20 mLs magnesium sulfate 2 g in sterile water 50 mL infusion 2 g, Intravenous, ONCE, 1 dose, On Sun05/14/24 at 1400, Administer over 120 Minutes, PACU Recovery New Bag 05/14/2024 1:28 PM EDT 2 g 25 mL/hr melatonin tablet 6 mg 6 mg, Oral, NIGHTLY PRN, Starting on Sun05/12/24 at 1550, Until Sun05/23/24 at 1815, Insomnia, Routine midazolam (pf) (Versed) (1 mg/mL) multi-dose injection 0.5-1 mg 0.5-1 mg, Intravenous, EVERY 3 MIN PRN, Starting on Sun05/21/24 at 0916, Until Sun05/21/24 at 1256, Sedation, For use in Interventional Radiology (IR) only for procedural sedation with direct provider supervision and verbal order. - Start dose: 1 mg (Reduce dose to 0.5 mg if history of sedation sensitivity). - Titration dose: 0.5 mg - 1 mg (based on patient response) every 3 minutes PRN to obtain RASS score of -3. Maximum dose: 1 mg/dose, 5 mg/hour., Angio/IR (Intra-Procedure), Routine Given 05/21/2024 11:00 AM EDT 1 mg Given 05/21/2024 10:56 AM EDT 1 mg ondansetron (pf) (Zofran) (2 mg/mL) injection 4 mg 4 mg, Intravenous, ONCE, 1 dose, On Blank 05/22/24 at 1800, Endoscopy (Recovery-Hospital Unit) Given 05/22/2024 5:33 PM EDT 4 mg ondansetron ODT (Zofran-ODT) disintegrating tablet 4 mg 4 mg, Oral, EVERY 8 HOURS PRN, Starting on Sun05/15/24 at 1811, Until Sun05/15/24 at 2000, Nausea, Routine Given 05/15/2024 6:24 PM EDT 4 mg oxyCODONE (Roxicodone) tablet 5 mg 5 mg, Oral, EVERY 4 HOURS PRN, Starting on Sun05/14/24 at 1352, Until Sun05/23/24 at 1815, Pain, Routine Given 05/20/2024 5:47 PM EDT 5 mg Given 05/19/2024 6:45 AM EDT 5 mg Given 05/18/2024 6:20 PM EDT 5 mg pantoprazole (Protonix) injection 40 mg 40 mg, Intravenous, 2 TIMES DAILY, First dose (after last modification) on Sun05/20/24 at 1315, Until Discontinued, Reconstitute with 10 mL of normal saline to a concentration of 4 mg/mL and inject slowly over 2 minutes. Given 05/20/2024 1:11 PM EDT 40 m g pantoprazole (Protonix) injection 40 mg 40 mg, Intravenous, 2 TIMES DAILY, First dose (after last modification) on Sun05/21/24 at 0945, Until Discontinued, Reconstitute with 10 mL of normal saline to a concentration of 4 mg/mL and inject slowly over 2 minutes. Given 05/22/2024 9:09 PM EDT 40 m g Given 05/22/2024 8:19 AM EDT 40 mg Given 05/21/2024 8:39 PM EDT 40 mg pantoprazole EC (Protonix) tablet 40 mg 40 mg, Oral, 2 TIMES DAILY, First dose on Sun05/23/24 at 0900, Until Discontinued, DO NOT CRUSH OR OPEN, Routine Given 05/23/2024 8:33 AM EDT 40 mg piperacillin-tazobactam (Zosyn) 3.375 g vial attach to sodium chloride 0.9% 50 mL Mini-Bag Plus 3.375 g, Intravenous, EVERY 8 HOURS, First dose (after last modification) on 05/10/24 at 2030, Until Discontinued, Administer over 4 Hours, Warning Vesicant/Irritant Medication Per bottling room worker labeling, do not administer or Y-site with lactated ringers., Indication for (Active or Suspected): Bone/Joint New Bag 05/14/2024 1:17 PM EDT 3.375 g 12.5 mL/ hr New Bag 05/14/2024 12:30 PM EDT 3.375 g 12.5 mL/hr New Bag 05/14/2024 4:45 AM EDT 3.375 g 12.5 mL/hr piperacillin-tazobactam (Zosyn) 4.5 g vial attach to sodium chloride 0.9% 100 mL Mini-Bag Plus 4.5 g, Intravenous, EVERY 8 HOURS, First dose on 05/10/24 at 0430, Until Discontinued, Administer over 4 Hours, Warning Vesicant/Irritant Medication Per bottling room worker labeling, do not administer or Y-site with lactated ringers., Indication for (Active or Suspected): Bone/Joint New Bag 05/10/2024 12:24 PM EDT 4.5 g 25 mL/h r New Bag 05/10/2024 5:52 AM EDT 4.5 g 25 mL/hr prochlorperazine (Compazine) (5 mg/mL) injection 10 mg 10 mg, Intravenous, ONCE, 1 dose, On Sun05/15/24 at 2030, Routine Given 05/15/2024 8:10 PM EDT 10 mg Left Arm rivaroxaban (Xarelto) tablet 15 mg 15 mg, Oral, DAILY, First dose on Sun05/15/24 at 1900, Until Discontinued, Routine, rivaroxabain (Xarelto) Indication: Non-Valvular Atrial Fibrillation Given 05/19/2024 8:18 AM EDT 15 mg Given 05/18/2024 8:51 AM EDT 15 mg Given 05/17/2024 9:00 AM EDT 15 mg rivaroxaban (Xarelto) tablet 15 mg 15 mg, Oral, EVERY EVENING, First dose on Sun05/20/24 at 1700, Until Discontinued, Must be administered with food., Routine, rivaroxabain (Xarelto) Indication: Non-Valvular Atrial Fibrillation Given 05/20/2024 4:25 PM EDT 15 mg sevelamer carbonate (Renvela) tablet 800 mg 800 mg, Oral, 3 TIMES DAILY WITH MEALS, First dose on Sun05/23/24 at 1230, Until Discontinued, DO NOT CRUSH OR OPEN, Routine Given 05/23/2024 12:27 PM EDT 800 mg simethicone (Gas-X Chew) 80 mg chewable tablet 80 mg 80 mg, Oral, EVERY 6 HOURS PRN, Starting on Sun05/15/24 at 1812, Until Sun05/23/24 at 1815, Cramping, Routine Given 05/18/2024 6:21 PM EDT 80 mg Given 05/15/2024 6:24 PM EDT 80 mg sodium bicarbonate tablet 650 mg 650 mg, Oral, 2 TIMES DAILY, First dose on Sun05/23/24 at 1230, Until Discontinued, Routine Given 05/23/2024 12:27 PM EDT 650 mg sodium chloride 0.9% infusion 150 mL/hr, Intravenous, CONTINUOUS, Starting on Sun05/15/24 at 1200, Until Sun05/15/24 at 1959 New Bag 05/15/2024 12:08 PM EDT 150 mL/hr 150 mL/hr vancomycin (Vancocin) 1.25 gram in sodium chloride 0.9% 250 mL infusion 1.25 g, Intravenous, at 200 mL/hr, ONCE, 1 dose, On Sun05/11/24 at 0800, Maximum infusion rate is 1 gram/hour. If flushing of the face, neck, upper body, arms, and/or back occurs decrease infusion rate by 50% to reduce the severity of symptoms. This medication may have an associated drug lab level. Please see MAR for scheduled level. Warning Vesicant/Irritant Medication , Routine New Bag 05/11/2024 8:12 AM EDT 1.25 g 200 mL/hr vancomycin (Vancocin) 1.25 gram in sodium chloride 0.9% 250 mL infusion 1.25 g, Intravenous, at 200 mL/hr, ONCE, 1 dose, On Sun05/12/24 at 0200, Maximum infusion rate is 1 gram/hour. If flushing of the face, neck, upper body, arms, and/or back occurs decrease infusion rate by 50% to reduce the severity of symptoms. This medication may have an associated drug lab level. Please see MAR for scheduled level. Warning Vesicant/Irritant Medication , Routine New Bag 05/12/2024 2:34 AM EDT 1.25 g 200 mL/hr vancomycin (Vancocin) 1.5 gram in sodium chloride 0.9% 500 mL infusion 1.5 g, Intravenous, at 333.3 mL/hr, ONCE, 1 dose, On Sun05/10/24 at 1400, Maximum infusion rate is 1 gram/hour. If flushing of the face, neck, upper body, arms, and/or back occurs decrease infusion rate by 50% to reduce the severity of symptoms. This medication may have an associated drug lab level. Please see MAR for scheduled level. Warning Vesicant/Irritant Medication , Routine New Bag 05/10/2024 1:56 PM EDT 1.5 g 333.3 mL/hr vancomycin (Vancocin) 1.5 gram in sodium chloride 0.9% 500 mL infusion 1.5 g, Intravenous, at 333.3 mL/hr, ONCE, 1 dose, On Sun05/13/24 at 0845, Maximum infusion rate is 1 gram/hour. If flushing of the face, neck, upper body, arms, and/or back occurs decrease infusion rate by 50% to reduce the severity of symptoms. This medication may have an associated drug lab level. Please see MAR for scheduled level. Warning Vesicant/Irritant Medication , Routine New Bag 05/13/2024 8:55 AM EDT 1.5 g 333.3 mL/hr vancomycin (Vancocin) 1.75 gram in sodium chloride 0.9% 500 mL infusion 1,750 mg (1.75 g), Intravenous, at 250 mL/hr, EVERY 24 HOURS, First dose on Sun05/14/24 at 0815, Until Discontinued, Maximum infusion rate is 1 gram/hour. If flushing of the face, neck, upper body, arms, and/or back occurs decrease infusion rate by 50% to reduce the severity of symptoms. This medication may have an associated drug lab level. Please see MAR for scheduled level. Warning Vesicant/Irritant Medication , Routine New Bag 05/14/2024 9:35 AM EDT 1,750 mg 250 mL/hr vancomycin (Vancocin) 1.75 gram in sodium chloride 0.9% 500 mL infusion 1,750 mg (1.75 g), Intravenous, at 250 mL/hr, ONCE, 1 dose, On Sun05/15/24 at 1300, Maximum infusion rate is 1 gram/hour. If flushing of the face, neck, upper body, arms, and/or back occurs decrease infusion rate by 50% to reduce the severity of symptoms. This medication may have an associated drug lab level. Please see MAR for scheduled level. Warning Vesicant/Irritant Medication , Routine New Bag 05/15/2024 12:44 PM EDT 1,750 mg 250 mL/hr documented in this encounter Active and Recently Administered Medications Times are shown in EDT. Scheduled Medication Order 05/21/2024 05/22/2024 05/23/2024 carvediloL (Coreg) tablet 25 mg 25 mg, Oral, 2 TIMES DAILY, First dose (after last modification) on Sun05/13/24 at 2100, Until Discontinued, Routine 125 (Given - Provider: Yg Prince RN)2040 (Given - Provider: Alyssa Villalobos RN) 0819 (Given - Provider: Trice Zhao, JACKIE)1318 (DEC Hold - Provider: Admin Adt - Reason: Transfer to a Procedural area)175 (DEC Unhold - Provider: Admin Adt)211 (Given - Provider: Saima Quinteros, JACKIE) 0832 (Given - Provider: Juan José Lai, RN) cefTRIAXone (Rocephin) 2 g vial attach to sodium chloride 0.9% 50 mL Mini-Bag Plus 2 g, Intravenous, EVERY 24 HOURS, First dose on Sun05/14/24 at 1600, Until Discontinued, Administer over 30 Minutes, Indication for (Active or Suspected): Bone/Joint 1712 (New Bag - Provider: Inez Boswell RN)1742 (Stopped - Provider: Yg Prince RN) 131 (DEC Hold - Provider: Admin Adt - Reason: Transfer to a Procedural area)175 (DEC Unhold - Provider: Admin Adt)183 (Restarted - Provider: Trice Zhao RN) 1600 (Due)181 (Due: Stopped) dilTIAZem (Cardizem) tablet 60 mg 60 mg, Oral, EVERY 6 HOURS SCHEDULED, First dose on Sun05/11/24 at 0900, Until Discontinued, HOLD for SBP <90 or HR <60, Routine 0612 (Given - Provider: Pretty Ramirez RN)1300 (Given - Provider: Yg Prince RN)1712 (Given - Provider: Inez Boswell RN)2330 (Given - Provider: Alyssa Villalobos RN) 0534 (Given - Provider: Alyssa Villalobos RN)1246 (Given - Provider: Trice Zhao RN)1318 (DEC Hold - Provider: Admin Adt - Reason: Transfer to a Procedural area)175 (DEC Unhold - Provider: Admin Adt)1842 (Given - Provider: Trice Zhao RN) 0114 (Given - Provider: Saima Quinteros, JACKIE)0600 (Given - Provider: Saima Quinteros RN)1227 (Given - Provider: Juan José Lai, JACKIE) epoetin leah-epbx (Retacrit) injection 10,000 Units 10,000 Units, Subcutaneous, DAILY, 3 doses, First dose on Sun05/21/24 at 1800, Last dose on Sun05/23/24 at 0900, Routine, What is the indication of use? Chronic Kidney Disease (CKD) 2038 (Given - Provider: Alyssa Villalobos RN) 0900 (Due)1318 (DEC Hold - Provider: Admin Adt - Reason: Transfer to a Procedural area)175 (DEC Unhold - Provider: Admin Adt) 0831 (Given - Provider: Juan José Lai RN) furosemide (Lasix) tablet 40 mg (CANCELED) 40 mg, Oral, EVERY MORNING, First dose on Sun05/21/24 at 1115, Until Discontinued, Routine 1115 (Due) 0641 (Given - Provider: Alyssa Villalobos RN)1318 (DEC Hold - Provider: Admin Adt - Reason: Transfer to a Procedural area)175 (DEC Unhold - Provider: Admin Adt) 06 (Given - Provider: Saima Quinteros RN) furosemide (Lasix) tablet 40 mg 40 mg, Oral, DAILY, First dose (after last modification) on Sun05/24/24 at 0900, Until Discontinued, Routine insulin glargine-ygfn (Semglee) (100 unit/mL) subcutaneous injection vial 14 Units 14 Units, Subcutaneous, NIGHTLY, First dose (after last modification) on 05/19/24 at 2100, Until Discontinued, Routine 2039 (Given - Provider: Alyssa Villalobos RN) 1318 (DEC Hold - Provider: Admin Adt - Reason: Transfer to a Procedural area)175 ([facility] Unhold - Provider: Admin Adt)2109 (Given - Provider: Saima Quinteros RN) insulin lispro (HumaLOG;Admelog) (100 unit/mL) subcutaneous injection vial 0-8 Units 0-8 Units, Subcutaneous, 3 TIMES DAILY WITH MEALS, First dose on Blank 05/15/24 at 0800, Until Discontinued, MEAL ASSOCIATED Give 1 unit for every 10 grams carbohydrate. Hold if not eating or if BG less than 70 mg/dL. , Routine 0800 (Not Given - Provider: Yg Prince RN - Reason: NPO)1413 (Given - Provider: Yg Prince RN - Comment: late meal try)1700 (Not Given - Provider: Yg Prince RN - Reason: NPO) 0800 (Not Given - Provider: Trice Zhao RN - Reason: NPO)1200 (Not Given - Provider: Trice Zhao RN - Reason: NPO)1318 (MAR Hold - Provider: Admin Adt - Reason: Transfer to a Procedural area)1700 (Not Given - Provider: Trice Zhao RN - Reason: Order parameters not met)1759 (MAR Unhold - Provider: Admin Adt) 0832 (Given - Provider: Juan José Lai RN)1257 (Given - Provider: Juan José Lai RN) insulin lispro (HumaLOG;Admelog) (100 unit/mL) subcutaneous injection vial 1-6 Units(Linked Group 1) 1-6 Units, Subcutaneous, EVERY 4 HOURS SCHEDULED, First dose on Sun05/15/24 at 0400, Until Discontinued, CORRECTION BOLUS [1-6 Units] Moderate Sliding Scale (BG in mg/dL): Correction factor 20 (1 unit of insulin is expected to drop the glucose 20 mg/dL) BG 140 - 160 Give 1 unit BG 161 - 180 Give 2 units BG 181 - 200 Give 3 units BG 201 - 220 Give 4 units BG 221 - 240 Give 5 units BG greater than 240, give 6 units and recheck BG in 2 hours. - If recheck BG is LESS than 240, give no insulin and resume schedule. - If recheck BG is GREATER than or EQUAL to 240, give 6 units and repeat BG in 2 hours (no more than 3 times) & call for new insulin orders. DO NOT hold if NPO, unless specifically directed to do so by written order. ?? Per Inpatient Subcutaneous Insulin Policy, recheck a BG of greater than 240 mg/dL in 2 hours., Routine 0000 (Not Given - Provider: Pretty Ramirze RN - Reason: Order parameters not met)0354 (Given - Provider: Pretty Ramirez RN)0800 (Not Given - Provider: Yg Prince RN - Reason: Order parameters not met - Comment: 135)1303 (Given - Provider: Yg Prince RN)1725 (Given - Provider: Inez Boswell RN)2039 (Given - Provider: Alyssa Villalobos RN)2330 (Given - Provider: Alyssa Villalobos RN) 0353 (Given - Provider: Alyssa Villalobos RN)0800 (Not Given - Provider: Trice Zhao RN - Reason: Order parameters not met)1200 (Not Given - Provider: Trice Zhao RN - Reason: Order parameters not met)1318 (MAR Hold - Provider: Admin Adt - Reason: Transfer to a Procedural area)1600 (Not Given - Provider: Trice Zhao RN - Reason: Order parameters not met)1759 (MAR Unhold - Provider: Admin Adt)2109 (Given - Provider: Saima Quinteros RN) 0000 (Not Given - Provider: Saima Quinteros RN - Reason: Order parameters not met)0350 (Given - Provider: Saima Quinteros RN)0800 (Not Given - Provider: Juan José Lai RN - Reason: Order parameters not met)1200 (Not Given - Provider: Juan José Lai RN - Reason: Order parameters not met - Comment: BS 137)1600 (Due) ipratropium-albuteroL (Duoneb) 0.5 mg-3 mg(2.5 mg base)/3 mL nebulizer solution 3 mL (CANCELED) 3 mL, Nebulization, EVERY 4 HOURS, First dose (after last modification) on [place] 05/18/24 at 1430, Until Discontinued, Routine 0258 (Given - Provider: Pretty Ramirez RN)0612 (Given - Provider: Pretty Ramirez RN)1030 (Not Given - Provider: Yg Prince RN - Reason: Transfer to a Procedural area - Comment: in IR)1430 (Not Given - Provider: Yg Prince RN - Reason: Patient/family refused)1830 (Not Given - Provider: Alyssa Villalobos RN - Reason: Patient/family refused)2156 (Given - Provider: Alyssa Villalobos RN) 0353 (Given - Provider: Alyssa Villalobos RN)0641 (Given - Provider: Alyssa Villlaobos RN) ipratropium-albuteroL (Duoneb) 0.5 mg-3 mg(2.5 mg base)/3 mL nebulizer solution 3 mL 3 mL, Nebulization, EVERY 6 HOURS, First dose (after last modification) on [facility] 05/22/24 at 1230, Until Discontinued, Routine 1230 (Not Given - Provider: Trice Zhao RN - Reason: Order parameters not met)1318 (DEC Hold - Provider: Admin Adt - Reason: Transfer to a Procedural area)1759 (DEC Unhold - Provider: Admin Adt)1843 (Given - Provider: Trice Zhao RN) 0030 (Not Given - Provider: Saima Quinteros RN - Reason: Patient/family refused)0630 (Not Given - Provider: Saima Quinteros RN - Reason: Patient/family refused)1227 (Given - Provider: Juan José Lai RN) lactobacillus acidophilus capsule 1 capsule 1 capsule, Oral, DAILY, First dose on Sun05/18/24 at 0900, Until Discontinued, Routine 1300 (Given - Provider: Yg Prince RN) 0819 (Given - Provider: Trice Zhao RN)1318 (DEC Hold - Provider: Admin Adt - Reason: Transfer to a Procedural area)1759 (DEC Unhold - Provider: Admin Adt) 0832 (Given - Provider: Juan José Lai RN) lidocaine (Xylocaine) 1% (10 mg/mL) injection 10 mg (COMPLETED) 10 mg, Subcutaneous, ONCE, 1 dose, On Sun05/21/24 at 0945, For use in Interventional Radiology (IR) only for procedure with direct provider supervision and verbal order., Angio/IR (Intra-Procedure), Routine 1117 (Given - Provider: Juan José Flowers MD) lidocaine-EPINEPHrine (1% - 1:100,000) injection 20 mL (COMPLETED) 20 mL, Intradermal, ONCE, 1 dose, On Sun05/21/24 at 0945, For use in Interventional Radiology (IR) only for procedure with direct provider supervision and verbal order. *This order is NOT a Venous Ablation Order / Dose., Angio/IR (Intra-Procedure), Routine 1124 (Given - Provider: Juan José Flowers MD) ondansetron (pf) (Zofran) (2 mg/mL) injection 4 mg (COMPLETED) 4 mg, Intravenous, ONCE, 1 dose, On Blank 05/22/24 at 1800, Endoscopy (Recovery-Hospital Unit) 1733 (Given - Provider: Irene Bravo RN) pantoprazole (Protonix) injection 40 mg (CANCELED) 40 mg, Intravenous, 2 TIMES DAILY, First dose (after last modification) on Sun05/21/24 at 0945, Until Discontinued, Reconstitute with 10 mL of normal saline to a concentration of 4 mg/mL and inject slowly over 2 minutes. 1301 (Given - Provider: Yg Prince RN)2038 (Given - Provider: Alyssa Villalobos RN) 0819 (Given - Provider: Trice Zhao RN)131 (DEC Hold - Provider: Admin Adt - Reason: Transfer to a Procedural area)175 (MAR Unhold - Provider: Admin Adt)2108 (Given - Provider: Saima Quinteros RN) pantoprazole EC (Protonix) tablet 40 mg 40 mg, Oral, 2 TIMES DAILY, First dose on Sun05/23/24 at 0900, Until Discontinued, DO NOT CRUSH OR OPEN, Routine 0833 (Given - Provider: Juan José Lai, JACKIE) sevelamer carbonate (Renvela) tablet 800 mg 800 mg, Oral, 3 TIMES DAILY WITH MEALS, First dose on Sun05/23/24 at 1230, Until Discontinued, DO NOT CRUSH OR OPEN, Routine 1227 (Given - Provider: Juan José Lai, JACKIE) sodium bicarbonate tablet 650 mg 650 mg, Oral, 2 TIMES DAILY, First dose on Sun05/23/24 at 1230, Until Discontinued, Routine 1227 (Given - Provider: Juan José Lai, JACKIE) PRN Medication Order 05/21/2024 05/22/2024 05/23/2024 acetaminophen (Tylenol) tablet 975 mg 975 mg, Oral, EVERY 8 HOURS PRN, Starting on 05/10/24 at 0412, Until Sun05/23/24 at 1815, Pain, Fever, Maximum dose of acetaminophen is 4,000 mg from all sources in 24 hours. When ordered for pain, acetaminophen should be given even when other ordered pain medications are indicated., Routine 1300 (Given - Provider: Yg Prince RN) 0434 (Given - Provider: Alyssa Villalobos RN)131 (DEC Hold - Provider: Admin Adt - Reason: Transfer to a Procedural area)175 (MAR Unhold - Provider: Admin Adt) 0832 (Given - Provider: Juan José Lai RN) dextrose 10% infusion(Linked Group 2) 250 mL, at 1,000 mL/hr, Intravenous, EVERY 15 MIN PRN, Starting on Sun05/10/24 at 0225, Until Sun05/23/24 at 1815, For BG 50-70 mg/dL: Oral treatment preferred: If able to drink, give 120 mL juice or regular (not diet) soda OR if NPO, give 15 gram glucose 40% oral gel massaged into buccal mucosa OR if unconscious or uncooperative, give 25 gram (250 mL) dextrose 10% IV over 15 minutes per protocol OR, if no IV access, 1 mg glucagon IM. For BG less than 50 mg/dL: Oral treatment preferred: If able to drink, give 240 mL juice or regular (not diet) soda OR if NPO, give 30 gram glucose 40% oral gel massaged in buccal mucosa OR if unconscious or uncooperative, give 25 gram (250 mL) dextrose 10% IV over 15 minutes per protocol OR, if no IV access, 1 mg glucagon IM. Recheck BG in 15 minutes. May repeat juice/soda, gel, dextrose or glucagon once per episode. Notify provider if hypoglycemia does not resolve after two treatments. Providers should consider the following: administering longer-acting treatments for the duration of active insulin or hypoglycemia agent for persistent hypoglycemia and re-evaluating active insulin orders before administering the next dose. 1318 (DEC Hold - Provider: Admin Adt - Reason: Transfer to a Procedural area)1759 (DEC Unhold - Provider: Admin Adt) fentaNYL (pf) (50 mcg/mL) multi-dose injection 25-50 mcg (CANCELED) 25-50 mcg, Intravenous, EVERY 3 MIN PRN, Starting on Sun05/21/24 at 0916, Until Sun05/21/24 at 1256, Pain, per unit protocol, For use in Interventional Radiology (IR) only for procedural sedation with direct provider supervision and verbal order. - Start dose: 50 mcg (reduce dose to 25 mcg if history of sedation sensitivity). - Titration dose: 25-50 mcg IV, (based on patient response) every 3 minutes PRN to maintain procedural pain less than 2 per Pain Scale. Maximum dose: 50 mcg/dose, 250 mcg/hour, Angio/IR (Intra-Procedure), Routine 1056 (Given - Provider: Sky Shelton RN)1100 (Given - Provider: Sky Shelton RN) glucagon (Glucagen) (1 mg/mL) injection solution 1 mg(Linked Group 2) 1 mg, Intramuscular, EVERY 15 MIN PRN, Starting on 05/10/24 at 0225, Until Sun05/23/24 at 1815, Low blood sugar, For BG 50-70 mg/dL: Oral treatment preferred: If able to drink, give 120 mL juice or regular (not diet) soda OR if NPO, give 15 gram glucose 40% oral gel massaged into buccal mucosa OR if unconscious or uncooperative, give 25 gram (250 mL) dextrose 10% IV over 15 minutes per protocol OR, if no IV access, 1 mg glucagon IM. For BG less than 50 mg/dL: Oral treatment preferred: If able to drink, give 240 mL juice or regular (not diet) soda OR if NPO, give 30 gram glucose 40% oral gel massaged in buccal mucosa OR if unconscious or uncooperative, give 25 gram (250 mL) dextrose 10% IV over 15 minutes per protocol OR, if no IV access, 1 mg glucagon IM. Recheck BG in 15 minutes. May repeat juice/soda, gel, dextrose or glucagon once per episode. Notify provider if hypoglycemia does not resolve after two treatments. Providers should consider the following: administering longer-acting treatments for the duration of active insulin or hypoglycemia agent for persistent hypoglycemia and re-evaluating active insulin orders before administering the next dose. , Routine 1318 (MAR Hold - Provider: Admin Adt - Reason: Transfer to a Procedural area)1759 (MAR Unhold - Provider: Admin Adt) glucose (Glutose) 40% oral geL(Linked Group 2) 15-30 g of glucose, Buccal, EVERY 15 MIN PRN, Starting on 05/10/24 at 0225, Until Sun05/23/24 at 1815, Low blood sugar, For BG 50-70 mg/dL: Oral treatment preferred: If able to drink, give 120 mL juice or regular (not diet) soda OR if NPO, give 15 gram glucose 40% oral gel massaged into buccal mucosa OR if unconscious or uncooperative, give 25 gram (250 mL) dextrose 10% IV over 15 minutes per protocol OR, if no IV access, 1 mg glucagon IM. For BG less than 50 mg/dL: Oral treatment preferred: If able to drink, give 240 mL juice or regular (not diet) soda OR if NPO, give 30 gram glucose 40% oral gel massaged in buccal mucosa OR if unconscious or uncooperative, give 25 gram (250 mL) dextrose 10% IV over 15 minutes per protocol OR, if no IV access, 1 mg glucagon IM. Recheck BG in 15 minutes. May repeat juice/soda, gel, dextrose or glucagon once per episode. Notify provider if hypoglycemia does not resolve after two treatments. Providers should consider the following: administering longer-acting treatments for the duration of active insulin or hypoglycemia agent for persistent hypoglycemia and re-evaluating active insulin orders before administering the next dose. 1 tube of Glutose-15 contains 15 grams of glucose (net weight of tube = 37.5 grams.), Routine 1318 (DEC Hold - Provider: Admin Adt - Reason: Transfer to a Procedural area)1759 (DEC Unhold - Provider: Admin Adt) melatonin tablet 6 mg 6 mg, Oral, NIGHTLY PRN, Starting on Sun05/12/24 at 1550, Until Sun05/23/24 at 1815, Insomnia, Routine 1318 (DEC Hold - Provider: Admin Adt - Reason: Transfer to a Procedural area)175 (DEC Unhold - Provider: Admin Adt) midazolam (pf) (Versed) (1 mg/mL) multi-dose injection 0.5-1 mg (CANCELED) 0.5-1 mg, Intravenous, EVERY 3 MIN PRN, Starting on Sun05/21/24 at 0916, Until Sun05/21/24 at 1256, Sedation, For use in Interventional Radiology (IR) only for procedural sedation with direct provider supervision and verbal order. - Start dose: 1 mg (Reduce dose to 0.5 mg if history of sedation sensitivity). - Titration dose: 0.5 mg - 1 mg (based on patient response) every 3 minutes PRN to obtain RASS score of -3. Maximum dose: 1 mg/dose, 5 mg/hour., Angio/IR (Intra-Procedure), Routine 1056 (Given - Provider: Sky Shelton, JACKIE)1100 (Given - Provider: Sky Shelton RN) oxyCODONE (Roxicodone) tablet 5 mg 5 mg, Oral, EVERY 4 HOURS PRN, Starting on Sun05/14/24 at 1352, Until Sun05/23/24 at 1815, Pain, Routine 1318 (DEC Hold - Provider: Admin Adt - Reason: Transfer to a Procedural area)1759 (DEC Unhold - Provider: Admin Adt) simethicone (Gas-X Chew) 80 mg chewable tablet 80 mg 80 mg, Oral, EVERY 6 HOURS PRN, Starting on Sun05/15/24 at 1812, Until Sun05/23/24 at 1815, Cramping, Routine 1318 (DEC Hold - Provider: Admin Adt - Reason: Transfer to a Procedural area)1759 (DEC Unhold - Provider: Admin Adt) Linked Groups Order Group 1: POCT Fingerstick Glucose (CANCELED) Routine, EVERY 4 HOURS, First occurrence on Sun05/15/24 at 0300, Until Specified, Consider choosing EVERY 4 HOURS as frequency for: - Type 1 Diabetes - At least 24 hours after coming off an insulin drip - At least 24 hours after admission for DKA - Hypoglycemia unawareness - Patients who are otherwise unstable Select the same frequency for the correction bolus insulin order And insulin lispro (HumaLOG;Admelog) (100 unit/mL) subcutaneous injection vial 1-6 UnitsJump to med 1-6 Units, Subcutaneous, EVERY 4 HOURS SCHEDULED, First dose on Sun05/15/24 at 0400, Until Discontinued, CORRECTION BOLUS [1-6 Units] Moderate Sliding Scale (BG in mg/dL): Correction factor 20 (1 unit of insulin is expected to drop the glucose 20 mg/dL) BG 140 - 160 Give 1 unit BG 161 - 180 Give 2 units BG 181 - 200 Give 3 units BG 201 - 220 Give 4 units BG 221 - 240 Give 5 units BG greater than 240, give 6 units and recheck BG in 2 hours. - If recheck BG is LESS than 240, give no insulin and resume schedule. - If recheck BG is GREATER than or EQUAL to 240, give 6 units and repeat BG in 2 hours (no more than 3 times) & call for new insulin orders. DO NOT hold if NPO, unless specifically directed to do so by written order. ?? Per Inpatient Subcutaneous Insulin Policy, recheck a BG of greater than 240 mg/dL in 2 hours., Routine Group 2: glucose (Glutose) 40% oral geLJump to med 15-30 g of glucose, Buccal, EVERY 15 MIN PRN, Starting on 05/10/24 at 0225, Until Sun05/23/24 at 1815, Low blood sugar, For BG 50-70 mg/dL: Oral treatment preferred: If able to drink, give 120 mL juice or regular (not diet) soda OR if NPO, give 15 gram glucose 40% oral gel massaged into buccal mucosa OR if unconscious or uncooperative, give 25 gram (250 mL) dextrose 10% IV over 15 minutes per protocol OR, if no IV access, 1 mg glucagon IM. For BG less than 50 mg/dL: Oral treatment preferred: If able to drink, give 240 mL juice or regular (not diet) soda OR if NPO, give 30 gram glucose 40% oral gel massaged in buccal mucosa OR if unconscious or uncooperative, give 25 gram (250 mL) dextrose 10% IV over 15 minutes per protocol OR, if no IV access, 1 mg glucagon IM. Recheck BG in 15 minutes. May repeat juice/soda, gel, dextrose or glucagon once per episode. Notify provider if hypoglycemia does not resolve after two treatments. Providers should consider the following: administering longer-acting treatments for the duration of active insulin or hypoglycemia agent for persistent hypoglycemia and re-evaluating active insulin orders before administering the next dose. 1 tube of Glutose-15 contains 15 grams of glucose (net weight of tube = 37.5 grams.), Routine Or dextrose 10% infusionJump to med 250 mL, at 1,000 mL/hr, Intravenous, EVERY 15 MIN PRN, Starting on 05/10/24 at 0225, Until Sun05/23/24 at 1815, For BG 50-70 mg/dL: Oral treatment preferred: If able to drink, give 120 mL juice or regular (not diet) soda OR if NPO, give 15 gram glucose 40% oral gel massaged into buccal mucosa OR if unconscious or uncooperative, give 25 gram (250 mL) dextrose 10% IV over 15 minutes per protocol OR, if no IV access, 1 mg glucagon IM. For BG less than 50 mg/dL: Oral treatment preferred: If able to drink, give 240 mL juice or regular (not diet) soda OR if NPO, give 30 gram glucose 40% oral gel massaged in buccal mucosa OR if unconscious or uncooperative, give 25 gram (250 mL) dextrose 10% IV over 15 minutes per protocol OR, if no IV access, 1 mg glucagon IM. Recheck BG in 15 minutes. May repeat juice/soda, gel, dextrose or glucagon once per episode. Notify provider if hypoglycemia does not resolve after two treatments. Providers should consider the following: administering longer-acting treatments for the duration of active insulin or hypoglycemia agent for persistent hypoglycemia and re-evaluating active insulin orders before administering the next dose. Or glucagon (Glucagen) (1 mg/mL) injection solution 1 mgJump to med 1 mg, Intramuscular, EVERY 15 MIN PRN, Starting on 05/10/24 at 0225, Until Sun05/23/24 at 1815, Low blood sugar, For BG 50-70 mg/dL: Oral treatment preferred: If able to drink, give 120 mL juice or regular (not diet) soda OR if NPO, give 15 gram glucose 40% oral gel massaged into buccal mucosa OR if unconscious or uncooperative, give 25 gram (250 mL) dextrose 10% IV over 15 minutes per protocol OR, if no IV access, 1 mg glucagon IM. For BG less than 50 mg/dL: Oral treatment preferred: If able to drink, give 240 mL juice or regular (not diet) soda OR if NPO, give 30 gram glucose 40% oral gel massaged in buccal mucosa OR if unconscious or uncooperative, give 25 gram (250 mL) dextrose 10% IV over 15 minutes per protocol OR, if no IV access, 1 mg glucagon IM. Recheck BG in 15 minutes. May repeat juice/soda, gel, dextrose or glucagon once per episode. Notify provider if hypoglycemia does not resolve after two treatments. Providers should consider the following: administering longer-acting treatments for the duration of active insulin or hypoglycemia agent for persistent hypoglycemia and re-evaluating active insulin orders before administering the next dose. , Routine documented in this encounter Additional Health Concerns Infection Onset Date Last Indicated Resolved Time Rule Out C. difficile 05/18/2024 05/18/20242023 3:02 PM EDT documented as of this encounter Care Teams Caretaker Relationship 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
--- OUTSIDE RECORDS SUMMARY | 2024-06-03 15:23 | XMS_ITS | Encounter Summary ---
Author Organization [place] [id number] Care Team Providers Care Nurse Technician Name Role Phone None Primary Care Provider Unavailabl e Reason for Visit * Auth/Cert (Routine) Specialty Diagnoses / Procedures Referred By Contac t Referred To Contact Diagnoses Septic shock septiic shock Procedures ER Tho Aquino MD [facility] [place] [address] [facility] Referral ID Status Reason Start Date Expiration Date Visits Re quested Visits Authorized [id number] 1 1 Encounter Details Date Type Department Care Team (Late st Contact Info) Description 05/22/2024 4:33 PM EDT Anesthesia Event [place] [address] Soledad Doyle MD [facility] [place] [address] Davie Le MD [facility] [address] Anesthesia Record Procedure Summary Procedure Name Responsible Anesthesiologist Anesthesia Start Time Anesthesia Stop Time EGD, UPPER GI ENDOSCOPY (WRVU 2.09) (Trunk) Soledad Doyle MD 05/22/24 1633 05/22/24 1649 Events Date Time Event Comment 05/22/2024 1633 AN Verify 1633 Start 1633 An Start Data 1639 An Induction 1639 Anesthesia Ready 1647 an stop data 1649 Recovery or ICU Handoff Teresita ent care was transferred to the destination unit staff after review of the patient's medical history, current anesthetic/surgical status and plan, according to the Provider Handoff Checklist. 1649 Stop 05/26/2024 1541 Meds Name Total fentaNYL 25 mcg lidocaine IV 100 mg propofoL 100 mg propofol INF 119.91 mg lactated ringers 0 mL * Agents Name O2 Air N2O O2 Auxiliary Flowmeter 1 * Blood No blood administrations on file. Lines, Drains, and Airways Type Details Placement Removal Incision 05/14/24; 1048; Righ t; dorsal 05/14/24 1048 by Caren Cabral RN Incision 05/21/24; 1118; Righ t; clavicle; non-laparascopic puncture; Non-HD tunneled line w/MD Flowers 05/21/24 1118 by Sky Shelton RN Incision 05/21/24; 1125; Righ t, upper; chest; horizontal; Non-HD tunneled line w/MD Flowers 05/21/24 1125 by Sky Shelton RN Tunneled Central Line 05/21/24; 1128; Si ngle Lumen; 8 Fr; subclavian vein, right; placement verified by x-ray; MD Flowers 05/21/24 1128 by Sky Shelton RN PIV 05/10/24; (osh); 18 gauge; median cubital vein (antecubital fossa), left; 05/23/24; 1531 05/10/24 0000 by Williams Hines RN 05/23/24 1531 by Juan José Lai RN PIV 05/14/24; 1236; 22 gauge; metacarpal vein (top of hand), right; 05/23/24; 1531 05/14/24 1236 by Opal Stern RN 05/23/24 1531 by Juan José Lai, RN documented in this encounter Social History Tobacco Use Types Packs/Day Years Used Date Smoking Tobacco: Former Cigarettes 14 0.6 S tarted: 2023 Smokeless Tobacco: Never Alcohol Use Standard Drinks/Week Comments Yes 0 (1 standard drink = 0.6 oz pur e alcohol) 3-4 PER [facility]AKUL IPV Inpatient Questions Answer Date Recorded Does [...] on file documented as of this encounter OR Notes * Anesthesia Postprocedure Evaluation - Soledad Doyle MD - 05/26/2024 3:41 PM EDT Department of Anesthesiology Post-procedure Note Patient: Jossy Shanks Procedure Summary Date: 05/22/24 Room / Location: [facility] ENDO 5 / [facility] ENDOSCOPY Anesthesia Start: 1633 Anesthesia Stop: 1649 Procedures: EGD, UPPER GI ENDOSCOPY (WRVU 2.09) (Trunk) EGD, W CONTROL OF BLEEDING, ANY METHOD (WRVU 3.56) EGD, W DIRECTED SUBMUCOSAL INJECTION(S) (WRVU 2.39) Diagnosis: (? melena) Surgeons: Jonn Mena MD Responsible Provider: Soledad Doyle MD Anesthesia Type: MAC ASA Status: 3 All Anesthesia Providers: Anesthesiologist: Soledad Doyle MD WOOD FLOOR REFINISHER: Gennaro Real CRNA Vitals Value Taken Time BP 168/83 05/22/24 1740 Temp Pulse Resp SpO2 97 % 05/22/24 1750 Pain Level 0 05/22/24 1745 Patient Location: PACU/[facility] Level of Consciousness: Conscious but Sleepy Pain Management: Satisfactory Analgesia PONV: None Cardiovascular Status: At Baseline and Hemodynamically Stable Respiratory Status: Stable Respiratory Status and Supplemental O2 (NC or FM) Postoperative Fluid Status: Intravascular EUvolemia Possible Anesthetic Complications: NONE apparent at time of evaluation Final Primary Anesthesia Type: MAC (The anesthetic type performed was the same as planned.) Comments: * Anesthesia Preprocedure Evaluation - Soledad Doyle MD - 05/22/2024 1:04 PM EDT Pre-Anesthesia Evaluation for: Jossy Shanks a 69 y.o. male. Procedure(s): EGD, UPPER GI ENDOSCOPY (WRVU 2.09) Patient Active Problem List Diagnosis Date Noted *Septic shock 2024 Degenerative lumbar spinal stenosis 09/25/2017 No past medical history on file. Past Surgical History: Procedure Laterality Date IR TUNNELED CENTRAL VENOUS ACCESS NON-DIALYSIS 05/21/2024 IR Tunneled Central Venous Access Non-Dialysis 05/21/2024 Juan José Flowers MD [facility] INTERVENTIONL RAD PRO AMPUTATION METATARSAL+TOE, SINGLE Right 05/14/2024 AMPUTATION, TRANSMETATARSAL TOE, ONE TOE (WRVU 6.64) performed by Elkin Garcia MD at [facility] MAIN OR Social History Tobacco Use Smoking status: Former Smokeless tobacco: Never Substance Use Topics Alcohol use: Not on file Social History Substance and Sexual Activity Drug Use Not on file No Known Allergies Medications: MAR and/or home medications have been reviewed. Physical Exam: Preprocedure Vitals Current as of 05/22/24 1304 BP: 140/79 Pulse: Resp: 18 SpO2: 91 Temp: 36 ??C (96.8 ??F) Height: 190.5 cm (6' 3) (05/14/24) Weight: 158.8 kg (350 lb) (05/21/24) BMI: 43.75 IBW: 84.5 kg (186 lb 4.6 oz) Last edited 05/22/24 1159 by AB Airway Assessment: Mallampati: I TM distance: >3 FB Neck ROM: full Cardiovascular Assessment: system normal Pulmonary Assessment: unlabored breathing Dental Assessment: Misc Assessment: Last Filed Perioperative Cognitive Screening Value Time User 4AT TOTAL Score: 0 05/21/2024 8:00 AM Yg Prince RN Anesthesia Plan: ASA 3 MAC, 69 y.o. male s/f EGD PMHx: AFib (xarelto, carvedilol), HTN (lisinopril, furosemide), HFpEF, COPD (no home oxygen), DM (liraglutide, insulin), CKD Allergies: No Known Allergies Plan MAC, standard ASA monitors, adequate PIV access. Soledad Doyle MD Informed Consent: Anesthesia Screening documented in this encounter Plan of Treatment Upcoming Encounters Date Type Department Care Team (Late st Contact Info) Description 06/10/2024 10:30 AM EDT Office [place] [address] Elkin Garcia MD [facility] [place] [address] documented as of this encounter Visit Diagnoses Not on filedocumented in this encounter Administered Medications Inactive Administered Medications - up to 3 most recent administrations Medication Order MAR Action Action Date Dose Rate Site fentaNYL (pf) (50 mcg/mL) multi-dose injection Intravenous, PRN, Starting on Blank 05/22/24 at 1638, Until Blank 05/22/24 at 1649, Anesthesia Intra-op, Routine Given 05/22/2024 4:38 PM EDT 25 mcg lactated ringers infusion Intravenous, CONTINUOUS PRN, Starting on Blank 05/22/24 at 1617, Until Blank 05/22/24 at 1649, Anesthesia Intra-op New Bag 05/22/2024 4:17 PM EDT lidocaine (pf) (Xylocaine) (20 mg/mL) 2% injection syringe Intravenous, PRN, Starting on Blank 05/22/24 at 1639, Until Blank 05/22/24 at 1649, Anesthesia Intra-op, Routine Given 05/22/2024 4:39 PM EDT 100 mg propofoL (Diprivan) (10 mg/mL) infusion Intravenous, CONTINUOUS PRN, Starting on Blank 05/22/24 at 1639, Until Blank 05/22/24 at 1649, Anesthesia Intra-op, Routine New Bag 05/22/2024 4:39 PM EDT 150 mcg/kg/min 102.78 mL/hr propofoL (Diprivan) 10 mg/mL bolus injection (Anesthesia) Intravenous, PRN, Starting on Blank 05/22/24 at 1639, Until Blank 05/22/24 at 1649, Anesthesia Intra-op Given 05/22/2024 4:39 PM EDT 100 mg documented in this encounter Care Teams Nurse Technician Relationship 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
--- OUTSIDE RECORDS SUMMARY | 2024-06-03 15:24 | XMS_ITS | Encounter Summary ---
[place] [address] Care Team Providers Care Business Support Name Role Phone None Primary Care Provider Unavailabl e Reason for Visit * Auth/Cert (Routine) Specialty Diagnoses / Procedures Referred By Contac t Referred To Contact Diagnoses Septic shock septiic shock Procedures ER Tho Aquino MD [facility] [place] [address] [facility] Referral ID Status Reason Start Date Expiration Date Visits Re quested Visits Authorized [id number] 1 1 Encounter Details Date Type Department Care Team (Late st Contact Info) Description 05/22/2024 1:00 PM EDT - 05/22/2024 1:30 PM EDT [place] [address] Jonn Mena MD [facility] [place] [address] EGD, UPPER GI ENDOSCOPY (WRVU 2.09) Social History Tobacco Use Types Packs/Day Years Used Date Smoking Tobacco: Former Cigarettes 14 0.6 S tarted: 2023 Smokeless Tobacco: Never Tobacco Cessation:Counseling Given: Not Answered Alcohol Use Standard Drinks/Week Comments Yes 0 (1 standard drink = 0.6 oz pur e alcohol) 3-4 PER [facility] Inpatient Questions Answer Date Recorded [...] Sign Reading Time Taken Comments Blood Pressure 146/71 05/22/2024 1:30 PM EDT Pulse 80 05/22/2024 1:30 PM EDT Temperature 36.4 ??C (97.5 ??F) 05/22/2024 1:30 PM ED T Respiratory Rate 19 05/22/2024 1:30 PM EDT Oxygen Saturation 99% 05/22/2024 1:20 PM EDT Inhaled Oxygen Concentration - - Weight 158.8 kg (350 lb) 05/21/2024 3:48 AM EDT Height 190.5 cm (6' 3) 05/14/2024 9:50 AM EDT Body Mass Index 46.24 05/14/2024 9:50 AM EDT documented in this encounter Discharge Summaries * Saba Spears MD - 05/22/2024 8:18 AM EDT Patient Name: Jossy Shanks Patient Age: 69 y.o. Language: Brazilian Race: White Ethnicity: Not nor Admit date: [...] please contact your inpatient physician through the [facility] . Issues afterhours and on weekends will [...] home oxygen, HFpEF, HTN who presented to [facility] for rt LE cellulitis, transferred to [facility] for septic shock. At end of March he dropped cylinder block on rt foot, bleeding and painful. Kept bandaged and sock on it, same sock on it for the last week, reports sock became fused to wound. Denies paresthesia. Wasable to walk w/out difficulty. In last several days erythema and edema spread upper Rt LE to knee. Fevers & chills for last 24hrs. Aspers lightheaded, weak, & couldn't get out of [...] prior to OSH departure. On arrival to [facility]: HR 96, o2 sat mid 90s on [...] care, the same day as transfer to [facility]. On the general medicine floor, he was [...] border dressing. (Melgisorb Ag 6x6 PS # [id number]) (Melgisorb Ag 4x4 PS # [id number]) Sacrum/ischium: open to air, utilize Z-guard if [...] 05/10/2024 2:37 AM) Result Value WORKSTATION ID [id number] Impression Bibasilar atelectasis. Thank you for letting us participate in the care of this patient. If you are a health care provider and have any questions regarding this report, please contact the number below. For patients who have questions please contact the health specialist wound care that requested your imaging first. Foot wwo Contrast Right (Exam End: 05/10/2024 5:51 AM) Result Value WORKSTATION ID [id number] Impression 1. Soft tissue irregularity of the [...] who have questions please contact the health specialist wound care that requested your imaging first. Retroperitoneal Complete (Exam End: 05/20/2024 10:36 AM) Result Value WORKSTATION ID [id number] Impression 1. Very limited exam secondary to [...] who have questions, please contact the health specialist wound care that requested your imaging first. Teofilo Ruiz, Staff Physician Electronically Signed Final Report 05/20/2024 11:36 am Pending Studies and Lab Data: Discharge Conditions/Prognosis: s/p Left 2nd toe amputation, recovering, requiring rehab. Back to baseline. Discharge to: [facility] Updated Allergies/ADRs: No Known Allergies Immunizations Given [...] Center 06/03/2024 2:00 PM Lu Mcfarland APRN [facility] ID 5C [facility] 06/05/2024 4:00 PM Elkin Garcia MD [facility] ORTH 3C [facility] Your Discharge Medication List Your Medications New [...] as much as possible. Call your doctor ([phone]) if you develop: Fever greater than 100.5 Severe nausea or vomiting Increasing pain that is not controlled by pain medications Increasing redness, swelling, or drainage from incisions Change in sensation FOLLOW-UP APPOINTMENTS: 1. You will have follow-up appointments at [facility] as indicated below in Future Appointment and Orders. 2. You will need to have x-rays prior to your follow-up appointment listed below. Please come to Radiology, desk 3T, 1 hour BEFORE that appointment for these x-rays. Future Appointments Date Time Provider Department Center 06/03/2024 2:00 PM Lu Mcfarland APRN [facility] ID 5C [facility] 06/05/2024 4:00 PM Elkin Garcia MD [facility] ORTH 3C [facility] If you have questions or concerns: Sunday [...] the day after the procedure, use an ojzz-gnl-jqmbsyl spray to numb your throat. Sucking on [...] occurs, please contact your Doctor. Please call [phone] before 8pm Mon-Fri with problems, questions or concerns. If you call after 8pm or on weekends, call the Hospital at [phone] and ask to speak to the Behavioral Intervention Specialist certification engineer and the chief operator lock tender will contact that person for you. When should you call for help? Call [phone] anytime you think you may need emergency [...] any problems. Where can you learn more? [facility] View your After Visit Summary and more online at [email or web address] If you would like to provide feedback about your hospital experience, please call the Office of Patient and Family Relations at . If you have received this After Visit Summary in error, please immediately return it in person to the department, or notify the [facility] Privacy Office by calling toll free at between the hours of 8AM and 5PM to arrange for our retrieval of the documents at no cost to you. Content Version: 12.2 ?? [id number] [employer]. Care instructions adapted under license by [facility]. If you have questions about a medical condition or this instruction, always ask your healthcare professional. [employer] disclaims any warranty or liability for your [...] is during regular working hours, please call [phone]. If it is after 5 pm or a weekend or holiday, call [phone] and ask for the Gut Dropper certification engineer for Interventional Radiology. You have received medication [...] PM Lu Mcfarland APRN Infectious Disease at [facility] Arrive at: Rn Production Area 5C [phone] 06/05/2024 4:00 PM Elkin Garcia MD Orthopaedics at [facility] Arrive at: Rn Production Area 3C [phone] Future Orders Complete By Expires OPAT: Order / Recommendation for Post Discharge IV Antibiotic Management [[id number] CPT(R)] As directed Process Instructions: If no progress note charted, please enter Clinical details in comments. Scheduling Instructions: Comments: - If this order was signed greater than 72 hours prior to [facility] discharge, please call to confirm the accuracy of this order. Please Fax all results to: [facility] Program Infectious Disease Section [facility], [place] [address] FAX: - After hours, please contact the Infectious Disease Physician certification engineer at . - Line care instructions - see flush/heparin orders. Facilities may follow organizational policies/practices regarding heparin. - detention for medication administration/hook puller and catheter care/maintenance authorized. HD Line care [...] draw labs every Sunday fax results to [facility] at [phone]. Please draw labs off PICC line. Please see [facility] order for lab draw details. Please RN visit for IV ABX teaching and ongoing assessment. Penitentiary for Medication Administration/Hookup and catheter care/maintenance: - Teach Patient/Caregiver goals/self-monitoring/therapy administration to independence per the Nursing Care Plan. - detention visit frequency; initial, weekly and 2 PRN visits for complications and/or issueswith therapy for the duration of therapy. - Insert/maintain/replace/remove vascular access device as needed when clinically appropriate and per the Nursing Care Plan. ( PIV: 22 - 24 qauqe) - Change VAD dressing, extension set [...] 05/20/2024 11:36 am) PATIENT INFO: ID #: [id number].O.B.: [birth year] (69 yrs)(M) Name: JOSSY SHANKS Visit Date: 05/20/2024 10:34 am PERFORMED BY: Attending: Teofilo Ruiz MD Resident: Trinidad Light MD Performed By: Lulu Shin RDMS Referred By: SABA SPEARS Location: [place] SERVICE(S) PROVIDED: URETRO - Retroperitoneal Complete - [id number] INDICATIONS: CKD, increase BUN TECHNIQUE/SCAN QUALITY: Scan [...] patients whohave questions, please contact the health specialist wound care that requested your imaging first. Teofilo Ruiz, Staff Physician Electronically Signed Final Report 05/20/2024 11:36 am My clinical question: Patient to establish for CKD management Do not type below here [id number]_CKD Questions: My question or request is: See comment Provider Contact Information: None None None Discharge References/Attachments Low Phosphorus Foods: General Info (Brazilian) Low Potassium Foods: General Info (Brazilian) documented in this encounter Discharge Instructions * [...] the day after the procedure, use an wnmb-pjd-pwyegnq spray to numb your throat. Sucking on [...] occurs, please contact your Doctor. Please call [phone] before 8pm Mon-Fri with problems, questions or concerns. If you call after 8pm or on weekends, call the Hospital at [phone] and ask to speak to the Behavioral Intervention Specialist certification engineer and the chief operator lock tender will contact that person for you. When [...] any problems. Where can you learn more? [facility] View your After Visit Summary and more online at [email or web address] If you would like to provide feedback about your hospital experience, please call the Office of Patient and Family Relations at . If you have received this After Visit Summary in error, please immediately return it in person to the department, or notify the [facility] Privacy Office by calling toll free at between the hours of 8AM and 5PM to arrange for our retrieval of the documents at no cost to you. Content Version: 12.2 ?? [phone] [employer]. Care instructions adapted under license by [facility]. If you have questions about a medical condition or this instruction, always ask your healthcare professional. [employer] disclaims any warranty or liability for your [...] is during regular working hours, please call [phone]. If it is after 5 pm or a weekend or holiday, call [phone] and ask for the Gut Dropper certification engineer for Interventional Radiology. You have received medication [...] Center 06/03/2024 2:00 PM Lu Mcfarland APRN [facility] ID 5C [facility] 06/05/2024 4:00 PM Elkin Garcia MD [facility] ORTH 3C [facility] Your Discharge Medication List Your Medications New [...] as much as possible. Call your doctor ([phone]) if you develop: Fever greater than 100.5 Severe nausea or vomiting Increasing pain that is not controlled by pain medications Increasing redness, swelling, or drainage from incisions Change in sensation FOLLOW-UP APPOINTMENTS: 1. You will have follow-up appointments at [facility] as indicated below in Future Appointment and Orders. 2. You will need to have x-rays prior to your follow-up appointment listed below. Please come to Radiology, desk 3T, 1 hour BEFORE that appointment for these x-rays. Future Appointments Date Time Provider Department Center 06/03/2024 2:00 PM Lu Mcfarland APRN [facility] ID 5C [facility] 06/05/2024 4:00 PM Elkin Garcia MD [facility] ORTH 3C [facility] If you have questions or concerns: Sunday through Sunday, 8 AM - 5 PM, please call Dr. Saba Spears MD's office at . If it is after 5 PM, the weekend, or holidays, please call and ask to speak with theOrthopedic resident on-call. * Attachments The following attachments cannot be sent through Care Everywhere. * Low Phosphorus Foods: General Info (Brazilian) * Low Potassium Foods: General Info (Brazilian) documented in this encounter Medications at Time [...] spent >30 minutes (Day of Discharge Code 20064) involved in the final examination of the patient, discussion of the hospital stay, instructions for continuing care to all relevant caregivers, and preparation of discharge records, prescriptions and referral forms. Plans Discharge to [facility] rehab Follow-up scheduled with ID, ortho, provider at [facility] Please see the Discharge Summary for complete details of any medication changes and additional plans. * Yg Jaffe - 05/23/2024 2:44 PM EDT Office of Care Management(OCM)/Model Home Sales Greeter(RS) Patient Name: Jossy Shanks : 1955 Patient has been offered a SNF bed at [phone]. [facility] arranged for a BLS transport at 1530. Ambulance will need: Medicare ambulance form completed and signed (MD or Wire Stripping Machine Operator) Copy of patient demographics [place] or [place] Out of Hospital DNR/DNI order, if active No MD to MD report necessary. Please call Nursing Report to , ask for mems engineer. Info to accompany patient: Narcotic Prescriptions Copies of Medication Administration Records and IV sheets for past two weeks. Plan: Model Home Sales Greeter will be available to the patient and Wire Stripping Machine Operator for further assistance. Patient to discharge to: [facility] Yg Jaffe Model Home Sales Greeter * Shirley Samuel RN - 05/23/2024 12:05 PM EDT Physician Certification Statement for Non-Emergency Ambulance Services Section I - General Information Guanakojaren Allyssa Shanks 1955 Medicare Number: n/a Transport Date: 05/23/2024 (PCS is valid for round trips on this date and for all repetitive trips in the 60-day range as noted below.) Origin: [facility] Destination: [facility] Is the patient's [...] wheelchair van (i.e. seated during transport, without medical apparatus model maker or monitoring?): No 4) In addition to [...] the Centers of Medicare and Medicaid Services ([facility]) to support the determination of medical [...] personally reviewed in eDH CBC: Recent Labs 05/23/24 0119 05/22/24 1118 [...] 9.3 9.2 8.8 8.7 HEPATIC: Recent Labs 05/22/24517 BILITOT <0.2 BILIDIR <0.2 ALKPHOS 84 AST 18 ALT 42 ALBUMIN 2.6* INFLAMM: Recent Labs 08/07/24 0458 CRP 14.1* IMAGING: Reports and images personally reviewed in [facility]. Images independently interpreted. IR Tunneled Central Venous [...] who have questions, please contact the health specialist wound care that requested your imaging first. Teofilo Ruiz, [...] who have questions please contact the health specialist wound care that requested your imaging first. Chest One View Final Result Bibasilar atelectasis. Thank you for letting us participate in the care of this patient. If you are a health care provider and have any questions regarding this report, please contact the number below. For patients who have questions please contact the health specialist wound care that requested your imaging first. SCOPY: Reports [...] with them as documented. Tl Steele MD [facility] Gastroenterology * Irene Bravo RN - 05/22/2024 [...] Zhao RN - 05/22/2024 12:47 PM EDT Sports Medicine Physician spoke with JACKIE Nuñez from Endo regarding [...] load. Will continue to follow * Marissa West RN - 05/22/2024 10:12 AM EDT During [...] EDTSummary: Pending discharge ID is treating Jossy Shanks for an [...] Galvan MD - 05/22/2024 6:57 AM EDT [facility] Medicine - Red Team Inpatient Progress [...] with PT - hoping to go to [facility] today Meds: pantoprazole 40 mg Intravenous BID furosemide 40 mg Oral QAM epoetin leah-epbx 10,000 Units Subcutaneous Daily insulin glargine (Lantus;Semglee) (100 unit/mL) subcutaneous injection 14 Units Subcutaneous Nightly lactobacillius capsule 1 capsule Oral Daily ipratropium-albuteroL 3 mL Nebulization Q4H insulin lispro 1-6 Units Subcutaneous Q4H [facility] cefTRIAXone 2 g Intravenous Q24H insulin lispro 0-8 Units Subcutaneous TID carvediloL 25 mg Oral BID dilTIAZem 60 [...] over right distal foot Labs: Recent Labs 05/22/2418 05/21/24 1500 05/21/24 08 WBC 14.70* 14.25* 15.77* HGB 7.2* 7.8* 7.5* HCT 22.1* 24.5* 23.0* PLATELET 366* 456* 398* Recent Labs 05/22/24 0518 05/21/24 0458 05/20/24 0427 NA 138 138 [...] shoe, c/w pt - Bed ready at [facility] #IDDM Home regiment: 1.2mg liraglutide qd, [...] upcoming EGD, and availability of bed at [facility]. -ordered T&S in case continues [...] Medicine Hospital Medicine Red Team - Pager [phone] Associated attestation - Saba pSears MD - 05/22/2024 5:19 PM EDT Attending [...] will transfuse and monitor response. Dispo to [facility] for rehab pending Hgb stability and EGD. I have examined the patient myself and personally reviewed all studies. In addition, I certify thatI am a D-H credentialed attending provider with admitting privileges and that the patient meets or has met medical necessity to require an inpatient IPI level of care meeting a minimum of two midnights or is on the [facility] inpatient only procedure list (status C) due to: OM requiring IV abx * Lazaro Aaron, TOOL DESIGNER APPRENTICE - 05/21/2024 4:05 PM EDT Physical Therapy [...] discharge to [facility] facility [facility] once medically ready for hospital discharge. Pt will continue to benefit from skilled physical therapy while in the hospital in order to maximize independence and safety with functional mobility and achieve therapeutic goals. Discharge Recommendations: Based on current findings- [facility] bed rehabilitation facility, [facility] facility Discharge recommendation is based on the [...] with stable vital signs. Total Time: 34 (3428-7979) minutes. TAx2 Lazaro Aaron PTA Pager: [phone] Physical Therapy Inpatient Rehabilitation Department * Penny [...] decreased insight into deficits Vision: corrective lenses banking management consulting manager Endurance: decreased activity tolerance Vitals: Stable on [...] with activities of daily living. Discharge Recommendation: [facility] facility, swing bed rehabilitation facility Equipment Recommendations: [...] 2-3 times/wk Total Minutes, Occupational Therapy: 40 ([facility] x3 ([phone])) Pager: [phone] Penny Rodriguez OT Occupational Therapy Rehabilitation Department [...] of : 1955 AGE: 69 y.o. Address: [address] [place] [address] (home) Mobile: Telephone Information: Referring Provider: Anna [...] Galvan MD - 05/21/2024 6:30 AM EDT [facility] Medicine - Red Team Inpatient Progress [...] over right distal foot Labs: Recent Labs 05/21/24 0458 05/20/24 1235 05/20/24 0427 WBC 14.49* 14.66* 15.20* HGB 7.5* 8.4* 7.9* HCT 23.6* 26.2* 25.5* PLATELET 388* 416* 403* Recent Labs 05/21/24 0458 05/20/24 0427 05/19/24 0511 NA 138 138 [...] Medicine Hospital Medicine Red Team - Pager [phone] Associated attestation - Saba Spears MD - [...] mid 7s. Appreciate GI consult. Dispo to [facility] pending Hgb and EGD. I have examined the patient myself and personally reviewed all studies. In addition, I certify thatI am a D-H credentialed attending provider with admitting privileges and that the patient meets or has met medical necessity to require an inpatient IPI level of care meeting a minimum of two midnights or is on the [facility] inpatient only procedure list (status C) [...] Galvan MD - 05/20/2024 6:20 AM EDT [facility] Medicine - Red Team Inpatient Progress [...] over right distal foot Labs: Recent Labs 05/20/2442605/19/24 0511 05/18/24 0401 WBC 15.20* 12.77* 9.84* HGB 7.9* 9.3* 9.6* HCT 25.5* 28.9* 31.4* PLATELET 403* 379* 335 Recent Labs 05/19/24 0511 05/18/24 1704 05/18/24 0400 NA 136 139 134* K 5.2* 5.4* 5.6* CL 108* 110* 107 CO2 18* 17* 11* BUN 118* 116* 105* CREATININE 2.75* 2.64* 2.69* GLUCOSE 162 170 144 Recent Labs 05/20/2442605/19/2451005/18/24 1704 05/18/24 0400 CALCIUM -- 9.3 9.2 [...] Pip-tazo and vanc c/w CTX Planning for [facility] central line, instead of PICC Has offloading [...] Diet: Low Phos and Carb Control diet / CHO counting level 2 # DVT prophylaxis:Heparin, holding for pre-op # Fluids: NA # Access: 2IV in place # Dispo: pending clinical improvement # Code: Full Code Mihaela Galvan MD 05/20/2024 PGY-3, Internal Medicine [facility] Medicine Red Team - Pager [phone] Associated attestation - Saba Spears MD - [...] due to: OM requiring IV abx * ToyincindyAlma, PT - 05/19/2024 11:23 AM EDT Physical [...] 2nd transmetatarsal on 05/14 Interval History: Per MD note: Interval History: --Tissue speciate station with [...] discharge to [facility] bed rehab facility [facility] once medically ready for hospital discharge. Pt will continue to benefit from skilled physical therapy while in the hospital in order to maximize independence and safety with functional mobility and achieve therapeutic goals. Discharge Recommendations: Based on current findings- [facility] bed rehabilitation facility, [facility] facility Discharge recommendation is based on the [...] Ho PT, Doctor of Physical Therapy Pager: [phone] Physical Therapy Inpatient Rehabilitation Department * Rebeca [...] for 4 weeks CTX 2gm daily until 8/21 with ID follow-up; if poor wound healing [...] decreased insight into deficits Vision: corrective lenses banking management consulting manager Endurance: decreased activity tolerance Vitals: Stable on [...] with activities of daily living. Discharge Recommendation: [facility] facility, swing bed rehabilitation facility Equipment Recommendations: [...] times/wk Total Minutes, Occupational Therapy: 47 Pager: [phone] Rebeca Moeller OT Occupational Therapy Rehabilitation Department * Mihaela Galvan MD - 05/19/2024 6:43 AM EDT [facility] Medicine - Red Team Inpatient Progress [...] Mihaela Galvan MD 05/19/2024 PGY-3, Internal Medicine Hospital Medicine Red Team - Pager [phone] Associated attestation - Saba Spears MD - [...] for a hospital day 9 nutrition evaluation. Sports Medicine Physician met with pt at bedside. Pt saidhe [...] unless consulted in the interim. Julissa Weathers Painter Drum * Mihaela Galvan MD - 05/18/2024 7:20 AM EDT [facility] Medicine - Red Team Inpatient Progress [...] Mihaela Galvan MD 05/18/2024 PGY-3, Internal Medicine Hospital Medicine Red Team - Pager [phone] Associated attestation - Saba Spears MD - [...] of two midnights or is on the [facility] inpatient only procedure list (status C) [...] Harrison MD - 05/17/2024 6:28 AM EDT [facility] Medicine - Red Team Inpatient Progress [...] Meds: insulin lispro 1-6 Units Subcutaneous Q4H [facility] insulin glargine (Lantus;Semglee) (100 unit/mL) subcutaneous injection [...] José Harrison MD 05/17/2024 PGY-3, Internal Medicine [facility] Medicine Red Team - Pager [phone] Associated attestation - Saba Spears MD - [...] 6.64) performed by Elkin Garcia MD at [facility] MAIN OR Active Non-Hospital Problems Diagnosis [...] angeles PT, Doctor of Physical Therapy Pager: [phone] Physical Therapy Inpatient Rehabilitation Department * Emmanuel [...] History: Housing: lives in a camper in [facility] 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 This suggests the absence of MRSA in the patient specimen submitted for testing. This test is cleared by the U.S. Food and Drug Administration for clinical use and its performance characteristics have been verified by the [facility] at [facility]. This result does not rule out the presence of any other organisms. Rare false negative results may occur if MRSA is present at low concentrations with much higher concentrations of other organisms including MRSE or S. aureus with an empty SCC cassette. Comment: [VERIFIED DATE]05.15.24 Verified By:Lupe Jensen (Electronic Signature) Tissue Culture, Aerobic & Anaerobic Toe [[id number]] (Abnormal) Collected: 05/14/24 1133 Lab Status: Preliminary result Specimen: Toe Updated: 05/15/24 1212 Tissue culture [[id number]] (Abnormal) Collected: 05/14/24 1133 Lab Status: Preliminary result Specimen: Toe Updated: 05/15/24 121 Tissue Culture No growth to date. Gram Stain -- Few Neutrophils seen Rare Gram Positive Cocci in pairs seen Results called to and read back by Dr. Mihaela Galvan 05/14/24 14:57:00 Organism Gram Positive Cocci in pairs Anaerobic Culture [[id number]] Collected: 05/14/24 1133 Lab Status: Preliminary result Specimen: Toe Updated: 05/15/24 1124 Anaerobic Culture No anaerobic organisms isolated to date Blood culture [[id number]] Collected: 05/10/24 0232 Lab Status: Final result Specimen: Blood from Hand, Right Updated: 05/15/24 0701 Blood Culture No growth at 5 days. Skin/Superficial Wound Culture Toe [[id number]] (Abnormal) Collected: 05/10/24 0256 Lab Status: Final [...] follow. Please page ID Red team (pager [phone]) with questions or concerns. Emmanuel Corey, DO Internal Medicine PGY-2 Pager: [phone] Epic Chat 05/16/2024 Associated attestation - Rodriguez [...] from the original note were not included. [facility] Red Team Inpatient Progress Note ID: Jossy [...] Component Value - Date/Time MRSA PCR Screen ([facility]) [[id number]] Collected: 05/15/24 1615 Lab Status: Final result Specimen: Nasopharyngeal Swab Updated: 05/15/242012 MRSA Result Negative MRSA Interp -- Methicillin-resistant Staphylococcus aureus (MRSA) is NOT DETECTED The MRSA target DNA sequences (mec and SCC) were not detected within the acceptable ranges using the Xpert MRSA NxG on the GeneXpert Dx System (BoxFox). This suggests the absence of MRSA in the patient specimen submitted for testing. This test is cleared by the U.S. Food and Drug Administration for clinical use and its performance characteristics have been verified by the [facility] at [facility]. This result does not rule out the presence of any other organisms. Rare false negative results may occur if MRSA is present at low concentrations with much higher concentrations of other organisms including MRSE or S. aureus with an empty SCC cassette. Comment: [VERIFIED DATE]05.15.24 Verified By:Lupe Jensen (Electronic Signature) Tissue Culture, Aerobic & Anaerobic Toe [[id number]] (Abnormal) Collected: 05/14/24 113 Lab Status: Preliminary result Specimen: Toe Updated: 05/15/24 121 Tissue culture [[id number]] (Abnormal) Collected: 05/14/24 113 Lab Status: Preliminary result Specimen: Toe Updated: 05/15/24 121 Tissue Culture No growth to date. Gram Stain -- Few Neutrophils seen Rare Gram Positive Cocci in pairs seen Results called to and read back by Dr. Mihaela Galvan 05/14/24 14:57:00 Organism Gram Positive Cocci in pairs Anaerobic Culture [[id number]] Collected: 05/14/24 113 Lab Status: Preliminary result Specimen: Toe Updated: 05/15/24 1124 Anaerobic Culture No anaerobic organisms isolated to date Blood culture [[id number]] Collected: 05/10/24 0232 Lab Status: Final result Specimen: Blood from Hand, Right Updated: 05/15/24 0701 Blood Culture No growth at 5 days. Skin/Superficial Wound Culture Toe [[id number]] (Abnormal) Collected: 05/10/24 0256 Lab Status: Final [...] Diet: Low Phos and Carb Control diet / CHO counting level 2 # DVT prophylaxis:Heparin, holding for pre-op # Fluids: NA # Access: 2IV in place # Dispo: pending clinical improvement # Code: Full Code Mihaela Galvan MD 05/16/2024 PGY-1, Internal Medicine Red Team - Pager [phone] Associated attestation - Treva Diaz MD - [...] likely suture removal on 06/05/24. Please page [phone] with any questions or concerns. Activity: NWB until forefoot offloading shoe DVT prophylaxis: per primary, rec 30 days LVX or ASA81 BID Closure: Sutures (to be removed at Orthopaedic follow-up appointment) Dressing: bacitracin, xeroform, 4x4, kerlix, DEREK x 7 days Antibiotics: per primary Isra Rodriguez IV, DO 05/16/2024 Future Appointments Date Time Provider Department Center 06/05/2024 4:00 PM Elkin Garcia MD [facility] [place] [facility] * Mihaela Galvan MD - 05/15/2024 6:41 AM EDT Images from the original note were not included. [facility] - Red Team Inpatient Progress [...] Q24H insulin lispro 0-8 Units Subcutaneous TID insulin glargine (Lantus;Semglee) (100 unit/mL) subcutaneous injection [...] 4.4 4.4 CL 100 105 104 CO2 24 BUN 58* 46* 57* CREATININE 2.46* 1.56* 1.53* GLUCOSE 217* 172 166 Recent Labs 05/15/24 0512 05/14/24 0501 05/13/24 0529 CALCIUM 8.8 8.7 8.7 [...] Procedure Component Value - Date/Time Tissue culture [[id number]] (Abnormal) Collected: 05/14/24 1133 Lab Status: Preliminary result Specimen: Toe Updated: 05/14/24 1459 Gram Stain -- Few Neutrophils seen Rare Gram Positive Cocci in pairs seen Results called to and read back by Dr. Mihaela Galvan 05/14/24 14:57:00 Organism Gram Positive Cocci in pairs Blood culture [[id number]] Collected: 05/10/24 0232 Lab Status: Preliminary result Specimen: Blood from Hand, Right Updated: 05/14/24 0701 Blood Culture No growth at 4 days. Skin/Superficial Wound Culture Toe [[id number]] (Abnormal) Collected: 05/10/24 0256 Lab Status: Final [...] PGY-1, Internal Medicine Red Team - Pager [phone] Associated attestation - Treva Diaz MD - [...] of two midnights or is on the [facility] inpatient only procedure list (status C) [...] days Antibiotics: per primary Isra Rodriguez IV, 05/15/2024 Future Appointments Date Time Provider Department Center 06/05/2024 4:00 PM Elkin Garcia MD [facility] [place] [facility] * Savannah Sy RN - 05/14/2024 1:45 [...] Center 06/05/2024 4:00 PM Elkin Garcia MD [facility] [place] * Mihaela Galvan MD - 05/14/2024 6:04 AM EDT [facility] - Red Team Inpatient Progress Note ID: Jsosy Shanks is a 69 y.o. year old [...] edema Labs: Recent Labs 05/13/24 0529 05/12/24 0445 05/11/24 0200 WBC 15.5* 19.7* 25.8* HGB 10.9* [...] PGY-1, Internal Medicine Red Team - Pager [phone] Associated attestation - Treva Diaz MD - [...] of two midnights or is on the [facility] inpatient only procedure list (status C) [...] OR for the above procedure. Please page [phone] if there are any concerns regarding OR [...] Galvan MD - 05/13/2024 6:28 AM EDT [facility] - Red Team Inpatient Progress Note ID: Jossy Shanks is a 69 y.o. year old male with past medical history of PMH of HTN, HFpEF, CKD (bsl Cr ~1.5), IDDM, COPD (not on home O2), rate controlled Afib (Xarelto, kipt, coreg) admitted on 05/10/2024 ( Hospital Day [...] le edema Labs: Recent Labs 05/13/24 0529 05/12/2444405/11/24 0200 WBC 15.5* 19.7* 25.8* HGB 10.9* 10.9* 10.9* HCT 33.3* 33.1* 32.5* PLATELET 186 165 141* Recent Labs 05/13/24 0529 05/12/24 0445 05/11/24 0200 NA 137 135 136 K 4.4 4.5 4.7 CL 104 101 100 CO2 BUN 57* 72* 72* CREATININE 1.53* 2.03* 2.58* GLUCOSE 166 156 212* Recent Labs 05/13/24 0529 05/12/245 05/11/24 0200 CALCIUM 8.7 8.4* 8.3* MAGNESIUM [...] PGY-1, Internal Medicine Red Team - Pager [phone] Associated attestation - Treva Diaz MD - [...] of two midnights or is on the [facility] inpatient only procedure list (status C) due to: RLE cellulitis with concern forosteomyelitis. Continue on iv antibiotics and follow up with orthopedics regarding any surgical debridement . * Sarwat Marti - 05/12/2024 2:20 PM EDT Hardboard Grinder Encounter Note Patient Name: Jossy Shanks : [id number] MR#: [id number] Admit Date: 05/10/2024 2:12 AM Hospital Day 2 days Narrative:Visited to introduce and assess acceptance of Hardboard Grinder services. Patient was sleeping and I will visit an other time. Assessment: Intervention and Outcome: Follow-up: Time in Direct Care: Sarwat Marti 05/12/2024 * Mihaela Galvan MD - 05/12/2024 6:36 AM EDT [facility] - Red Team Inpatient Progress [...] 4.7 5.0 CL 101 100 93* CO2 24 24 23 BUN 72* 72* 69* CREATININE 2.03* [...] PGY-1, Internal Medicine Red Team - Pager [phone] Associated attestation - Treva Diaz MD - [...] of two midnights or is on the [facility] inpatient only procedure list (status C) due to: RLE cellulitis with concern forosteomyelitis. Continue on iv antibiotics and discuss with orthopedics regarding any urgent need for surgical debridement. 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 Interval Events: - lactate [...] 05/10/2024 2:37 AM) Result Value WORKSTATION ID [id number] Impression Bibasilar atelectasis. Thank you for letting us participate in the care of this patient. If you are a health care provider and have any questions regarding this report, please contact the number below. For patients who have questions please contact the health specialist wound care that requested your imaging first. foot pending [...] Thomas MD - 05/10/2024 2:56 AM EDT [facility] Tele[facility] Initial Assessment Note I established audio/visual [...] hour(s)) Lactate, whole blood, send to lab ([facility]) Result Value Lactate WB 2.3 (H) Prothrombin [...] infection if clinical appearance is worrisome -Awaiting [facility] admission K+ level and Chem 7 -Would [...] bpm 91 21 145/69 97 % -- 05/21/24 2328 36.3 ??C (97.3 ??F) 91 bpm -- 20 127/63 98 % -- RA 05/22/24 0349 -- 83 bpm -- -- -- 99 % -- -- 05/22/24 0350 36.5 ??C (97.7 ??F) (!) 106 bpm (!) 106 18 128/66 97 % -- 05/22/24 0351 -- 95 bpm -- -- [...] been signed. Jonn Mena MD * Jeramie Perez DO - 05/21/2024 9:04 AM EDT INTERVENTIONAL RADIOLOGY [...] indication: Osteomyelitis, central venous access required for correction antibiotic use IR workflow: Procedure request received through Interventional Radiology eDH order queue. There are no answered order specific questions. History of Present Illness: Per chart review, Jossy Shanks is a 69 y.o. male with PMH of CKD, DM,COPD, A.fib, admitted for RLE cellulitis and osteomyelitis s/p 2ng toe amputation requiring correction IV antibiotic administration who presents to Interventional [...] medical record. IR History: None listed at [facility] Anticoagulation/Antiplatelet: None listed Labs: Lab Results Component [...] Assessment: 69 y.o. male with OM requiring tank terminal gauger IV ABX presenting to Interventional Radiology for [...] 6.64) performed by Elkin Garcia MD at [facility] MA[facility] OR Social History and Habits: [...] in IR the day of procedure) 05/21/2024 TRUDY RodriguezC * Allyn Wilcox PA - 05/21/2024 7:19 AM EDT Images from the original note were not included. Interventional Radiology Focused Pre-procedure H&P: PCP: None Referring Provider: Anna Barber Planned procedure: Tunneled non-HD central venous catheter implant - single lumen Procedure indication: Osteomyelitis, central venous access required for correction antibiotic use IR workflow: Procedure request received through Interventional Radiology eDH order queue. There are no answered order specific questions. History of Present Illness: Per chart review, Jossy Shanks is a 69 y.o. male with PMH of CKD, DM,COPD, A.fib, admitted for RLE cellulitis and osteomyelitis s/p 2ng toe amputation requiring correction IV antibiotic administration who presents to Interventional [...] medical record. IR History: None listed at [facility] Anticoagulation/Antiplatelet: None listed Labs: Lab Results Component [...] Assessment: 69 y.o. male with OM requiring correction IV ABX presenting to Interventional Radiology for [...] 6.64) performed by Elkin Garcia MD at [facility] MA[facility] OR Social History and Habits: [...] - 05/14/2024 1:35 AM EDT 24-HOUR H&P PATRICIO Shanks was seen and evaluated. No interval events or changes in health status since preoperative H+P. Denies angina, dyspnea, fevers, chills, or malaise within the last 14 days. All questionswere answered. Stable for surgery as scheduled. Alert and oriented RRR CTAB Jossy Shanks is a 69 y.o. male pended for R 2nd toe amputation. Isra Rodriguez IV, DO Orthopaedic Surgery [facility] * Carlotta Davis MD - 05/10/2024 5:48 [...] on home oxygen, HFpEF, HTN, admitted to [facility] [place]2024, now on Hospital Day #0, for RLE cellulitis SUBJECTIVE History of Present Illness: Per admitting provider Jossy Shanks is a 69 y.o. year old male with PMH significant for IDDM, Afib rate controlled, CKD (bsl cr 1.5), COPD not on home oxygen, HFpEF, HTN who presented to [facility] for rt LE cellulitis, transferred to [facility] for RLE cellulitis after trauma to his [...] knee. Fevers & chills for last 24hrs. Aspers lightheaded, weak, & couldn't get out of [...] prior to OSH departure. 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 Invalid input(s): [id number] Recent Labs 05/10/24219 HA1C 5.9* Lipids: Heme: No results for input(s): LDH, HAPTOGLOBIN, URICACID in the last 168 hours. ABG (Arterial Blood Gas): No results found for: PHART, PO2ART, YDE0GMM, RGJ8AEI VBG (Venous Blood Gas): No results for input(s): PHVEN, ORC3WZS, PO2VEN, QNS5BCG, BEVEN, DJY4BGI in the last 72hours. EKG: No results [...] 05/10/2024 2:37 AM) Result Value WORKSTATION ID [id number] Impression Bibasilar atelectasis. Thank you for letting us participate in the care of this patient. If you are a health care provider and have any questions regarding this report, please contact the number below. For patients who have questions please contact the health specialist wound care that requested your imaging first. Foot wwo Contrast Right (Exam End: 05/10/2024 5:51 AM) Result Value WORKSTATION ID [id number] Impression 1. Soft tissue irregularity of the [...] who have questions please contact the health specialist wound care that requested your imaging first. Medications: Scheduled: [START ON 05/11/2024] dilTIAZem 60 mg Oral Q6H VLAD heparin [...] intermittent dosing per levels ASSESSMENT and PLAN: Jossy Shanks is a 69 y.o. male w/ PMH of HTN, HFpEF, CKD (bsl Cr ~1.5), IDDM, COPD (not on home O2), rate controlled Afib (Xarelto, dilt, coreg), admitted to [facility] [place], now on Hospital Day #0, [...] Davis MD Internal Medicine PGY2 Medicine Team: Red, Pager #[phone] Associated attestation - Treva Diaz MD - 05/11/2024 11:16 AM EDT Attending Staff Admission Documentation I certify that the patient requires: [x] inpatient care status due to [RLE cellulitis with concern for osteomyelitis] I have examined the patient myself on 05/10/24 and reviewed all labs and studies personally. Please see Dr. Missy Davis's documentation for details of the patient history [...] home oxygen, HFpEF, HTN who presented to [facility] for rt LE cellulitis, transferred to [facility] [place] shock. Reports end of March [...] knee. Fevers & chills for last 24hrs. Aspers lightheaded, weak, & couldn't get out of [...] prior to OSH departure. On arrival to [facility]: HR 96, o2 sat mid 90s on [...] mobilizes w/out assistance. Darion Morgan is DPOA; [phone] Physical Exam: Vitals: Last value Range last [...] not indicated -DPOA: Primary Emergency Contact: Gifty Bucio -Dispo: downgrade to hospital medicine if remains off pressors Anita Camacho MD Internal Medicine, PGY2 05/10/2024 MICU Blue Team Pager #[phone] documented in this encounter Procedure Notes * Juan José Flowers MD - 05/21/2024 11:49 AM EDT IR PROCEDURE NOTE Procedure: Tunneled central venous catheter placement. Indication for Procedure: Per Guanako Saldanajaren Shanks is a 69 y.o. male with PMH of CKD, DM, COPD, A.fib, admitted for RLE cellulitis andosteomyelitis s/p 2ng toe amputation requiring tank terminal gauger IV antibiotic administration who presents to Interventional [...] Patient is medically ready for discharge to [facility]. Needs for Transition of Care: Plan for discharge is: [facility]it[facility] Facility / Swing OPAT Orders: ID Consult Ordered Agency Referrals & Follow-up Care: Contact information for follow-up [facility] [address] [place] [address] [place] [address] Transportation: family or friend will provide Wheelchair [...] Discharge: Patient is insured through: Primary Insurance: [employer] MANAGED MEDICARE Payor: Verified Identity Pass MANAGED MEDICARE / Plan: [facility] MANAGED MEDICARE COMPLETE / Product Type: *No Product type* / Secondary Insurance: N/A Prescription Coverage: Yes This plan was formulated with input from patient and team. All are in agreement with plan. Shirley Samuel RN CM [employer] Helper- Medicine Office of Care Management Ext: [phone] Pager: [phone] * Plan of Care - Juan José Lai RN - 05/23/2024 10:40 AM EDT OUTCOME EVALUATION NOTE: OUTCOME SUMMARY: Pt calm 7 cooperative. No complaints of pain. Pt did not ambulate today. Dressing on right foot CDI, came off once requiring reinforcement. aware. Pt's HGB stable upon recheck after [...] Fall Risk Flowsheets (Taken 05/22/2024802 by Trice Zhao, JACKIE) Safety Promotion/Fall Prevention: activity supervised assistive device/personal items within reach clutter free environment maintained fall prevention program maintained lighting adjusted mobility aid in reach nonskid shoes/slippers when out of bed room organization consistent safety round/check completed Intervention: Prevent Skin Injury Flowsheets (Taken 05/22/2024802 by Trice Zhao, RN) Body Position: weight shifting Intervention: Prevent and Manage VTE (Venous Thromboembolism) Risk Flowsheets (Taken 05/22/2024802 by Trice Zhao, RN) VTE Prevention/Management: anticoagulant therapy Intervention: Prevent Infection Flowsheets (Taken 05/22/2024802 by Trice Zhao, JACKIE) Infection Prevention: environmental surveillance performed equipment surfaces disinfected personal protective equipment utilized hand hygiene promoted rest/sleep promoted single patient room provided Goal: Optimal Comfort and Wellbeing Outcome: Ongoing (Interventions Implemented as Appropriate) Intervention: Provide Person-Centered Care Flowsheets (Taken 05/22/2024802 by Trice Zhao, JACKIE) Trust Relationship/Rapport: care explained choices provided emotional [...] Flowsheets (Taken 05/20/2024 1252 by Evelyn Prakash, RN) Glycemic Management: blood glucose monitored insulin dose [...] encouraged Intervention: Promote Injury-Free Environment Flowsheets (Taken 05/22/2024802 by Trice Zhao RN) Safety Promotion/Fall Prevention: activity supervised assistive device/personal items within reach clutter free environment maintained fall prevention program maintained lighting adjusted mobility aid in reach nonskid shoes/slippers when out of bed room organization consistent safety round/check completed Problem: Adjustment to Surgery (Extremity Amputation) Goal: Optimal Coping with Amputation Outcome: Ongoing (Interventions Implemented as Appropriate) Intervention: Support Psychosocial Response Flowsheets Taken 05/22/2024802 by Trice Zhao RN Supportive Measures: active listening utilized positive reinforcement provided problem-solving facilitated relaxation techniques promoted self-care encouraged verbalization of feelings encouraged Taken 05/21/20242007 by Alyssa Villalobos RN Family/Support System Care: self-care encouraged Problem: Infection (Extremity Amputation) Goal: Absence of Infection Signs and Symptoms Outcome: Ongoing (Interventions Implemented as Appropriate) Intervention: Prevent or Manage Infection Flowsheets (Taken 05/20/2024 08 by Evelyn Prakash, RN) Fever Reduction/Comfort Measures: lightweight clothing lightweight bedding [...] Appropriate) * Plan of Care - Trice Zhoa RN - 05/22/2024 7:53 PM EDT OUTCOME EVALUATION NOTE: OUTCOME SUMMARY: Patient A/OX4, VSS, pleasant and voiding into urinal at bedside. Jossy went to have an EGD today, where they found that he had an ulcer and were able to stop the bleeding. Sports Medicine Physician carolyn a hemoglobin when patient got back [...] Operative Note Patient Name: Jossy Shanks : [id number] MR#: [id number] Case Date: 05/22/2024 Surgeon: Surgeons and Role: [...] REQUESTING PROVIDER: Saba Spears MD NAME: Jossy Spivey Rimma : 1955 HPI: Jossy Spivey Rimma 69 y.o. male with past medical history [...] Access Non-Dialysis 05/21/2024 Juan José Flowers MD [facility] INTERVENTIONL RAD PRO AMPUTATION METATARSAL+TOE, SINGLE Right 05/14/2024 AMPUTATION, TRANSMETATARSAL TOE, ONE TOE (WRVU 6.64) performed by Elkin Garcia MD at [facility] MAIN OR SOCIAL HX: Social History [...] Resp: [14-27] SpO2 SpO2: [93 %-100 %] IO 05/20 701 - 05/21 700 In: 1777 [P.O.:1742; I.V.:35] Out: 2725 [Urine:2725] [...] IMAGING: Reports and images personally reviewed in eDH. Images independently interpreted. IR Tunneled Central Venous [...] who have questions, please contact the health specialist wound care that requested your imaging first. Teofilo Ruiz, [...] who have questions please contact the health specialist wound care that requested your imaging first. Chest One View Final Result Bibasilar atelectasis. Thank you for letting us participate in the care of this patient. If you are a health care provider and have any questions regarding this report, please contact the number below. For patients who have questions please contact the health specialist wound care that requested your imaging first. SCOPY: Reports and images personally reviewed in H OSH RECORDS: Obtained and personally reviewed ASSESSMENT & PLAN: 69 y.o. male with past medical history of [facility] of HTN, HFpEF, CKD (bsl Cr ~1.5), [...] NPO midnight - EGD tomorrow - hold martellto Patient seen with Dr. Steele. Thank you [...] anticoagulation and significant anemia. Tl Steele MD [facility] * Plan of Care - Pretty [...] new fluid restriction, patient verbalized understanding. LBM 05/20. Frequent checks, safety maintained, please see flowsheet [...] Pain Flowsheets (Taken 05/20/2024802) Pain Management Interventions: ueucaa-wvb-fknyw dosing utilized breathing exercises care clustered diversional [...] Physical Therapy Recommendation: swing bed rehabilitation facility, [facility] facility with to be determined Last Occupational Therapy Recommendation: [facility] facility, swing bed rehabilitation facility with to be determined Plan for discharge is: [facility]it[facility] Facility / Swing Outpatient Agency/Support Group Needs: Homecare agency OPAT Orders: ID Consult Ordered Location: Home Home Health Services: IV Therapy Agency Referrals: Based on discussions with the multi-disciplinary healthcare team, the patient would benefit from SNF level of care at discharge. I have met with the patient to: discuss discharge planning needs. provide the [facility], Office of Care Management letter from the Administration Clerk pertaining to rehab referrals. provide a letter describing our affiliations within the [facility] and educate about their right to choose where referrals are sent. provide the CMS Star Quality Rating handout. review the different levels of rehab including SNF, swing, and acute. provide a list of facilities within their preferred geographic area. request that they provide at least three choices for referral. They have requested referrals to: [facility] ([facility]) [address] [place] [address] [facility] [address] [place] [address] -OFFERED BED, PENDING INSURANCE AUTHORIZATION 05/20 [address] [facility] [address] [place] [address] [facility] [address] [place] [address] [facility]) [address] [place] [address] (Accepts pts only after exhausting all other local SNF options) Does patient have COVID vaccine card: Yes; Copy obtained: No Note routed to a Model Home Sales Greeter who will communicate referrals to facilities and provide any required information. Transportation: family or friend will provide Barriers to discharge: Discharge planning Plan going forward: Referrals routed for SNF/Swing. Care Management will continue to follow and assist with discharge planning and coordination of care as indicated. Anticipated Date of Discharge: 05/21/2024 Shirley Samuel RN CM [employer] Helper- Medicine Office of Care Management Ext: [phone] Pager: [phone] * Plan of Care - Pretty Ramirez [...] ADLs]: Eyes on Surveillance [continuous indirect monitoring]: Mary Patient-specific fall prevention interventions for sensory deficits [...] shock at his time of transfer to [facility]. Creatinine on admission was 3.94 mg/dL, he [...] 6.64) performed by Elkin Garcia MD at [facility] OR insulin glargine-ygfn (Semglee) (100 [...] know that his creatinine was 1.9 in 2020. It would bereasonable to assume that he [...] occult test completed this shift, positive result, notified. C-diff sample collected and sent to [...] Intervention: Prevent or Manage Infection Flowsheets Taken 05/18/2024837 Fever Reduction/Comfort Measures: lightweight bedding lightweight clothing Taken 05/17/2024 0900 Infection Management: aseptic technique maintained Problem: Pain (Extremity Amputation) Goal: Acceptable Pain Control Outcome: Ongoing (Interventions Implemented as Appropriate) Intervention: Prevent or Manage Pain Flowsheets (Taken 05/18/2024 0838) Pain Management Interventions: ytlnxg-jzq-bfdxl dosing utilized care clustered diversional activity provided [...] Appropriate) Intervention: Support Psychosocial Response Flowsheets (Taken 05/17/2024 194) Supportive Measures: active listening utilized decision-making supported [...] television Taken 05/15/2024 1825 Pain Management Interventions: nuykzc-dka-kqfbs dosing utilized position adjusted pillow support provided [...] and Manage Fall Risk Flowsheets (Taken 05/16/2024 0852) Safety Promotion/Fall Prevention: activity supervised clutter free environment maintained assistive device/personal items within reach fall prevention program maintained lighting adjusted mobility aid in reach nonskid shoes/slippers when out of bed room organization consistent safety round/check completed Intervention: Prevent Skin Injury Flowsheets (Taken 05/16/2024 0852) Body Position: semi-fowlers foot of bed elevated heels elevated legs elevated log-rolled Intervention: Prevent and Manage VTE (Venous Thromboembolism) Risk Flowsheets (Taken 05/16/2024851) VTE Prevention/Management: anticoagulant therapy SCDs on intermittently [...] Appropriate) Intervention: Initiate Sepsis Management Flowsheets Taken 05/16/2024851 Infection Prevention: hand hygiene promoted equipment surfaces disinfected environmental surveillance performed rest/sleep promoted Taken 05/15/2024 0737 Infection Management: aseptic technique maintained Intervention: Promote Stabilization Flowsheets Taken 05/16/2024 1837 Fever Reduction/Comfort Measures: lightweight bedding lightweight clothing Taken 05/16/2024851 Fluid/Electrolyte Management: fluids provided Intervention: Promote Recovery [...] provided Intervention: Promote Injury-Free Environment Flowsheets (Taken 05/16/2024851) Safety Promotion/Fall Prevention: activity supervised clutter free [...] smartphone Taken 05/15/2024 1825 Pain Management Interventions: fxulvt-bky-yjlyk dosing utilized position adjusted pillow support provided relaxation techniques promoted * Initial Assessments - Penny Rodriguez, OT - 05/16/2024 2:00 PM EDT Images [...] 6.64) performed by Elkin Garcia MD at [facility] OR Active Non-Hospital Problems Diagnosis [...] Perception: WNL / WFL and corrective lenses 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 Total Minutes, Occupational Therapy: 90 (evaluation ([phone])) 2017 OT Evaluation Code Rationale: Diagnosis & [...] and measurable assessment of functional outcome. Pager: [phone] Penny Rodriguez OT 05/16/2024 Occupational Therapy Rehabilitation [...] have. Alternately, during off-hours you may call [phone] to contact a pharmacist. * Consult Note [...] Other * Plan of Care - Christine Ronquillo RN - 05/16/2024 2:55 AM EDT Pt [...] presenting as drowsy, although easily arousable. Dr Alvarez notified and assessed pt at bedside. Pt [...] of Care Review 05/15/2024 1129 by Evelyn Prakash, RN Outcome: Ongoing (Interventions Implemented as Appropriate) 05/15/2024 1128 by Evelyn Prakash, RN Outcome: Ongoing (Interventions [...] Identify and Manage Fall Risk Flowsheets (Taken 05/15/2024 07) Safety Promotion/Fall Prevention: assistive device/personal items within reach clutter free environment maintained fall prevention program maintained mobility aid in reach nonskid shoes/slippers when out of bed room organization consistent safety round/check completed Intervention: Prevent Skin Injury Flowsheets (Taken 05/15/2024736) Body Position: supine Intervention: Prevent and Manage VTE (Venous Thromboembolism) Risk Flowsheets (Taken 05/15/2024 07) VTE Prevention/Management: (SCD on LLE) anticoagulant therapy SCDs on intermittently Intervention: Prevent Infection Flowsheets (Taken 05/15/2024736) Infection Prevention: hand hygiene promoted environmental surveillance performed rest/sleep promoted Goal: Optimal Comfort and Wellbeing 05/15/20241128 by Evelyn Prakash RN Outcome: Ongoing (Interventions Implemented as Appropriate) 05/15/20241127 by Evelyn Prakash RN Outcome: Ongoing (Interventions Implemented as Appropriate) Intervention: Provide Person-Centered Care Flowsheets (Taken 05/15/2024 07) Trust Relationship/Rapport: care explained choices provided emotional [...] Infection Signs and Symptoms 05/15/20241128 by Evelyn Prakash RN Outcome: Ongoing [...] Optimal Coping with Amputation 05/15/20241128 by Evelyn Prakash, RN Outcome: Ongoing (Interventions Implemented as Appropriate) 05/15/20241127 by Evelyn Prakash RN Outcome: Ongoing (Interventions Implemented as Appropriate) Intervention: Support Psychosocial Response Flowsheets (Taken 05/15/2024 0737) Supportive Measures: active listening utilized decision-making supported goal-setting facilitated positive reinforcement provided relaxation techniques promoted self-care encouraged verbalization of feelings encouraged Problem: Bleeding (Extremity Amputation) Goal: Absence of Bleeding 05/15/20241128 by Evelyn Prakash RN Outcome: Ongoing (Interventions Implemented as Appropriate) 05/15/2024 112 by Evelyn Prakash RN Outcome: Ongoing (Interventions Implemented as Appropriate) Intervention: Monitor and Manage Bleeding Flowsheets (Taken 05/15/2024 1129) Bleeding Management: dressing monitored Problem: Infection (Extremity Amputation) Goal: Absence of Infection Signs and Symptoms 05/15/20241128 by Evelyn Prakash RN Outcome: Ongoing (Interventions Implemented as Appropriate) 05/15/2024 112 by Evelyn Prakash RN Outcome: Ongoing (Interventions Implemented as Appropriate) Intervention: Prevent or Manage Infection Flowsheets (Taken 05/15/2024 0737) Infection Management: aseptic technique maintained Problem: Pain (Extremity Amputation) Goal: Acceptable Pain Control 05/15/20241128 by Evelyn Prakash RN Outcome: Ongoing (Interventions Implemented as Appropriate) 05/15/20241127 by Evelyn Prkaash RN Outcome: Ongoing (Interventions Implemented as Appropriate) [...] briefly on vasopressors, and then transferred to [facility] for further management. 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 05/14. Reports a hx of cellulitis in the Left leg back in 2009 for which he states he did a course of 6 week son IV abx from [facility]. Has gotten cellulitis about half a dozen times in total. Review of Systems: Pertinent positives and negatives noted in HPI. 14 point ROS otherwise negative except noted in HPI. Allergies/Adverse drug reactions: No Known Allergies Family History: Family History No data available Social History: Housing: lives in a camper in [facility] Occupation: Former ab[employer], retired in 2017 [...] 4.4 4.4 CL 100 105 104 CO2 24 BUN 58* 46* 57* CREATININE 2.46* 1.56* 1.53* CRP (mg/L) Date Value 05/12/2024 152.4 (H) Sed Rate (mm/hr) Date Value 05/12/2024 >119 (H) Microbiology: Microbiology Results (last 7 days) Procedure Component Value - Date/Time Blood culture [[id number]] Collected: 05/10/24 0232 Lab Status: Final result Specimen: Blood from Hand, Right Updated: 05/15/24 0701 Blood Culture No growth at 5 days. Tissue culture [[id number]] (Abnormal) Collected: 05/14/24 1133 Lab Status: Preliminary result Specimen: Toe Updated: 05/14/24 1459 Gram Stain -- Few Neutrophils seen Rare Gram Positive Cocci in pairs seen Results called to and read back by Dr. Mihaela Galvan 05/14/24 14:57:00 Organism Gram Positive Cocci in pairs Skin/Superficial Wound Culture Toe [[id number]] (Abnormal) Collected: 05/10/24 0256 Lab Status: Final [...] follow. Please page ID Red team (pager [phone]) with questions or concerns. Emmanuel Corey, DO Internal Medicine PGY-2 Pager: [phone] Epic Chat 05/15/2024 Associated attestation - Rodriguez [...] Home Health Services: IV Therapy Agency Referrals: [place] [address] or Home Care Orders: 1. IV Antibiotics: [...] to discharge: Discharge planning Plan going forward: [facility] routed and pended. [facility] routed. Care Management will continue to follow and assist with discharge planning and coordination of care as indicated. Anticipated Date of Discharge: 05/19/2024 Shirley Samuel RN CM [employer]n [employer]er Helper- Medicine Office of Care Management Ext: [phone] Pager: [phone] * Plan of Care - Christine Ronquillo Bobo, RN - 05/15/2024 6:07 AM EDT Pt politely [...] received HS scheduled Lantus 12 units @ 2114. Per pt Lantus 12 units @HS follows [...] Pt in agreement. Pt POC BG @ 4205 223. Pt denies pain. 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 Surgical Infection Prevention Bundle Used? N/A Attestation: Case Date: 05/14/2024 I was present and I participated during the entire procedure (does not need to include opening and closing). Elkin Garcia MD 05/14/2024 * Consult Note - Hakeem Villa [facility] - 05/14/2024 7:15 AM EDT [facility] Pharmacokinetics Note Drug: Vancomycin Pharmacokinetic target: AUC24 (range) 400-600 mg/L.hr Jossy Shanks is a 69-year-old male receiving intermittent Vancomycin doses Recent measured serum creatinine values: 05/14/2024 05:01 1.56 mg/dL 05/13/2024 05:29 1.53 mg/dL 05/12/2024 04:45 2.03 mg/dL Assessment: Analysis of the most recent level(s) using [employer] gives the following patient-specific pharmacokinetic parameters: CL: [...] Fall and Fall-Related Injury 05/14/2024 0456 by Pretyt Ramirez RN Outcome: Ongoing (Interventions Implemented as [...] controlled Afib (Xarelto, dilt, coreg), admitted to [facility] on 05/10/2024 with LE cellulitis 2/2 right foot trauma. Reason for intervention: Diet order question - what type of carb control diet does pt need? Nutrition Recommendations: Carb control level 3 diet Monitor po intake Monitor blood glucose levels Monitor weight trends I was able to discuss plan with provider Medicine Pager Red [phone] . Nutrition consult received regarding what type of carb control diet pt needs. Estimated nutrition needs based on ideal body weight of 89kg: Calories: 2428-1841 calories (20-25kcal/kg) Protein: 89-107g (1-1.2g/kg) Nutrition to continue to follow while inpatient. Kendal Hill RD * Consult Note - Keeley Russell RN - 05/12/2024 12:15 PM EDT Images from the original note were not included. Wound Care Nurse Note Situation: Asked to see Jossy Shanks by Lara Powell RN for toe wound from brick drop, [...] border dressing. (Melgisorb Ag 6x6 PS # [id number]) (Melgisorb Ag 4x4 PS # [id number]) Sacrum/ischium: open to air, utilize Z-guard if patient begins to have breakdown Supplies left at the bedside: 1 sheet of Melgisorb Ag, wound cleanser Wound Care will complete the consult at this time. If there are further issues please re-consult via eD-H. Discussed plan with: RN: Don Please contact Keeley Russell RN on eDH secure chat or the wound care team on pager [phone] with skin and wound care concerns or [...] surrogate would be surrogate decision maker per [place] surrogate decision making law. (Only good for 180 days) Son CONRADO Any patient receiving care in [place] must abide by [place] law. The hierarchy for surrogate decision making [...] (i) The agent with financial power of assistant county attorney or a conservator appointed in accordance [...] Current DME: none Home Address listed as: [address] [place] [address] Pt is not currently residing here. Current address is as below: [place] [id number] Social & Family Supports: All names listed below confirmed with patient as current and correct Extended Emergency Contact Information Primary Emergency Contact: Eddie Shanks Mobile Relation: Son/Xdzaoksa-pn-ujf Secondary Emergency Contact: Gifty Bucio [facility] Relation: Mother Current Care Provided by: self [...] Pertinent/Service Specific Information: Health/Prescription Coverage: Primary Insurance: [employer] [facility] OOS Payor: [facility] [employer] [facility] OOS / Plan: [facility] PPO / Product Type: *No Product type* / Secondary Insurance: N/A ; Prescription Coverage: Yes Preferred Pharmacy: [id number] - [place], [place] - [address] [facility] [id number] Primary Care Provider listed: None None Pt does have PCP in [facility] Patient/Caregiver Goals of Treatment: Potential Needs for Transition of Care: none, home health care Agency Referrals: I have met with the patient to: discuss discharge planning needs. provide the [facility] Office of Care Management letter from the Administration Clerk pertaining to rehab referrals. provide a letter describing our affiliations within the [facility] and educate about their right to choose where referrals are sent. provide a list of Home Health Agencies / Durable Medical Equipment vendors which serve their preferred geographic area. provided patient with [facility] Star Quality Rating handout. They have requested referrals to: [facility] [address] [place] [address] Note routed to a Model Home Sales Greeter who will communicate referrals to facilities and [...] wait list for housing (an apartment) in [place], [place]; ETA for move-in is 4-8weeks. He does not feel that his local family members would be able to house him in the interim andexpresses that he is comfortable in his camper, which has amenities. He is fully independent at baseline but has used [facility] health in the past; a referral will [...] Clinical Pharmacist Note - VancFD Jossy Shanks [id number] Jossy Shanks is a 69 y.o. [...] questions you may have. Alternately, during off-hours (9p-) you may call [phone] to contact a pharmacist. Rodriguez Sinclair RPH [...] intact shoulder abduction, elbow flexion/extension, wrist flexion/extension, supervisor cytogenetic laboratory, EPL, AIN, IO Brisk capillary refill distally [...] intact shoulder abduction, elbow flexion/extension, wrist flexion/extension, supervisor cytogenetic laboratory, EPL, AIN, IO Brisk capillary refill distally [...] changes develop in his course. Please page [phone] following completion of requestedimaging and studies. - Activity: no restrictions at this time - DVT prophylaxis: per primary; recommend lovenox 30 mg BID - Antibiotics: per ID - Imaging / studies needed: MRI wwo contrast, ABIs, ESR, CRP Tyrone Rehman MD Orthopaedic Surgery, 8484 documented in this encounter Plan of Treatment Upcoming Encounters Date Type Department Care Team (Late st Contact Info) Description 06/10/2024 10:30 AM EDT [place] [address] Elkin Garcia MD [facility] [place] [address] Scheduled Referrals Name Type Priority Associated Diagnoses [...] EDT Upper Gi Endoscopy, W/Dir Submuc Inj ([id number]) 05/22/2024 4:39 PM EDT ? melena Upper Gi Endoscopy, Ctrl Bleed ([id number]) 05/22/2024 4:39 PM EDT ? melena Upper GI Endoscopy, Diagnostic ([id number]) 05/22/2024 4:39 PM EDT ? melena UPPER [...] ACUTE INFLAMMATION Add-On 05/21/20 4:58 AM EDT CBC (WITH DIFF) Routine [...] TO PATHOLOGY Routine 05/14/2024 11:32 AM EDT AMPUTATION, TRANSMETATARSAL TOE, ONE TOE Routine 05/14/2024 9:19 AM EDT POCT GLUCOSE Routine 05/14/2024 7:58 AM EDT VANCOMYCIN LEVEL, RANDOM Timed 05/14/2024 5:01 AM EDT HEMOGRAM Routine 05/14/2024 5:01 AM EDT DIFFERENTIAL, AUTOMATED Routine 05/14/20 24 5:01 AM EDT CBC (WITH DIFF) Routine [...] - 199 mg/dL 05/23/2024 12:32 PM EDT [facility] Comment:Supplemental ranges: <140 mg/dL before meals <180 mg/dL all other times of the day. Blood CAPILLARY BLOOD / Unknown 05/23/2024 12:32 PM EDT 05/23/2024 12:32 PM EDT Saba Spears MD POINT OF CARE TEST ORDERABLES Performing Organization Address City/State/[facility] [[email or web address]] Co de Phone Number [facility] [place] [address] * (ABNORMAL) Basic Metabolic Panel (05/23/2024 9:46 AM EDT) Glucose 142 65 - 199 mg/dL 05/23/2024 11:27 AM EDT [facility] Comment:Glucose Concentratio n >=200 mg/dL plus symptoms is consistent with Diabetes Mellitus. Blood Urea Nitrogen 83(H) 10 - 20 mg/dL 05/23/2024 11:27 AM EDT [facility] Creatinine 2.64(H) 0.80 - 1.50 mg/dL 05/23/2024 11:27 AM EDT [facility] Sodium 140 135 - 145 mMol/L 05/23/2024 11:27 AM [facility] Potassium 5.2(H) 3.5 - 5.0 mMol/L 05/23/2024 11:27 AM [facility] Chloride 111(H) 98 - 107 mMol/L 05/23/2024 11:27 AM [facility] Carbon Dioxide 20(L) 22 - 31 mMol/L 05/23/2024 11:27 AM [facility] Anion Gap 9 5 - 15 mMol/L 05/23/2024 11:27 AM [facility] Calcium 9.3 8.5 - 10.5 mg/dL 05/23/2024 11:27 AM [facility] Est Glomerular Filtration Rate - Male 25 mL/min/1. 73 m?? 05/23/2024 11:27 AM [facility] Comment: This patient's estimated GFR [...] EDT Saba Spears MD CHEMISTRY ORDERABLE S [facility] [place] [address] * (ABNORMAL) CBC (with Diff) (05/23/2024 9:46 AM EDT) White Blood Cell 12.66(H) 4.00 - 9.50 x10(3)/mc L 05/23/2024 10:52 AM [facility] Red Blood Cell 2.56(L) 4.58 - 5.54 x10(6)/mc L 05/23/2024 10:52 AM [facility] Hemoglobin 7.7(L) 13.7 - 16.5 g/dL 05/23/2024 10:52 AM [facility] Hematocrit 24.3(L) 40.5 - 48.5 % 05/23/2024 10:52 AM [facility] Mean Cell Volume 94.9(H) 82.9 - 93.1 fL 05/23/2024 10:52 AM [facility] Mean Cell Hemoglobin 30.1 27.5 - 32.1 pg 05/23/2024 10:52 AM [facility] Mean Cell Hemoglobin Concentration 31.7(L) 32.0 - 35.7 g/dL 05/23/2024 10:52 AM [facility] Platelet 370(H) 145 - 357 x10(3)/mc L 05/23/2024 10:52 AM [facility] Mean Platelet Volume 11.6 7.6 - 12.9 fL 05/23/2024 10:52 AM [facility] RDW Standard Deviation 57.1(H) 36.0 - 45.0 fL 05/23/2024 10:52 AM [facility] RDW coefficient of variation 16.9(H) 11.4 - 13.8 % 05/23/2024 10:52 AM [facility] NRBC% auto 0.0 % 05/23/2024 10:52 AM [facility] NRBC Absolute 0.00 0.00 - 0.00 x10(3)/mc L 05/23/2024 10:52 AM [facility] Neutrophil % 81.6 % 05/23/2024 10:52 AM EDT [facility] Neutrophil Absolute 10.34(H) 1.70 - 6.10 x10(3)/mc L 05/23/2024 10:52 AM EDT [facility] Lymph % 5.1 % 05/23/2024 10:52 AM EDT [facility] Lymph Absolute 0.64(L) 0.90 - 3.20 x10(3)/mc L 05/23/2024 10:52 AM EDT [facility] Monocyte % 10.7 % 05/23/2024 10:52 AM EDT [facility] Monocyte Absolute 1.35(H) 0.30 - 0.90 x10(3)/mc L 05/23/2024 10:52 AM EDT [facility] Eos % 1.7 % 05/23/2024 10:52 AM EDT [facility] Eos Absolute 0.22 0.00 - 0.40 x10(3)/mc L 05/23/2024 10:52 AM EDT [facility] Basophil % 0.3 % 05/23/2024 10:52 AM EDT [facility] Baso Absolute 0.04 0.00 - 0.10 x10(3)/mc L 05/23/2024 10:52 AM EDT [facility] Immature Gran % 0.6 % 10:52 AM EDT [facility] Immature Gran Absolute 0.07(H) 0.00 - 0.04 x10(3)/mc L 05/23/2024 10:52 AM EDT [facility] Blood VENOUS BLOOD SPECIMEN / Unknown IP Care Team Draw / Unknown 05/23/2024 9:46 AM EDT 05/23/2024 10:01 AM EDT Saba Spears MD HEMATOLOGY ORDERABL ES [facility] [place] [address] * POC, GLUCOSE (05/23/2024 7:44 AM EDT) Glucometer, POC 127 65 - 199 mg/dL 05/23/2024 7:44 AM EDT [facility] Comment:Supplemental ranges: <140 mg/dL before meals <180 mg/dL all other times of the day. Blood CAPILLARY BLOOD / Unknown 05/23/2024 7:44 AM EDT 05/23/2024 7:45 AM EDT Saba Spears MD POINT OF CARE TEST ORDERABLES Performing Organization Address City/[facility]/ZIP Co de Phone Number [facility] [place] [address] * Prepare RBC (05/23/2024 3:49 AM EDT) Status Information Transfused [facility] Product Identification RBC [facility] Unit Number [id number] [facility] Product Code [id number] [facility] Unit Blood Type OPOS [facility] Specimen Expiration Date [id number] [facility] Volulme 350 [facility] Issue Date / Time [id number] [facility] Blood 05/22/2024 12: 42 PM EDT Saba Spears MD BLOOD BANK PRODUCT ORDERABLES Performing Organization Address City/[facility]/ZIP Co de Phone Number [facility] [place] [place] [address] * POC, GLUCOSE (05/23/2024 3:49 AM EDT) Glucometer, POC 152 65 - 199 mg/dL 05/23/2024 3:49 AM EDT [facility] Comment:Supplemental ranges: <140 mg/dL before meals <180 mg/dL all other times of the day. Blood CAPILLARY BLOOD / Unknown 05/23/2024 3:49 AM EDT 05/23/2024 3:49 AM EDT Saba Spears MD POINT OF CARE TEST ORDERABLES Performing Organization Address City/[facility]/ZIP Co de Phone Number [facility] [place] [address] * POC, GLUCOSE (05/23/2024 1:26 AM EDT) [facility] Glucometer, POC 138 65 - 199 mg/dL 05/23/2024 1:26 AM EDT [facility] Comment:Supplemental ranges: <140 mg/dL before meals <180 mg/dL all other times of the day. Blood CAPILLARY BLOOD / Unknown 05/23/2024 1:26 AM EDT 05/23/2024 1:26 AM EDT Saba Spears MD POINT OF CARE TEST ORDERABLES Performing Organization Address [facility]/ZIP Co de Phone Number [facility] [place] [address] * (ABNORMAL) Scan, Peripheral Blood (05/23/2024 1:19 AM EDT) [facility] RBC Morphology Abnormal 05/23/2024 3:44 AM EDT [facility] Platelet Estimate Increased(A) Normal 05/23/2024 3:44 AM EDT [facility] Ovalocytes 1-5 /HPF 05/23/2024 3:44 AM EDT [facility] Sofía cells 1-5 /HPF 05/23/2024 3:44 AM EDT [facility] Blood VENOUS BLOOD SPECIMEN / Unknown IP Care Team Draw / Unknown 05/23/2024 1:19 AM EDT 05/23/2024 2:05 AM EDT Mary De La Fuente MD HEMATOLOGY ORDERAB LES [facility] [place] [address] * Magnesium (05/23/2024 1:19 AM EDT) Magnesium 0.86 0.69 - 1.07 mMol/L 05/23/2024 2:40 AM EDT [facility] Blood VENOUS BLOOD SPECIMEN / Unknown IP Care Team Draw / Unknown 05/23/2024 1:19 AM EDT 05/23/2024 2:05 AM EDT Mary De La Fuente MD CHEMISTRY ORDERABL ES Performing Organization Address City/[facility]/ZIP Co de Phone Number [facility] [place] [address] * (ABNORMAL) Phosphorus (05/23/2024 1:19 AM EDT) Phosphorus 5.8(H) 2.5 - 4.5 mg/dL 05/23/2024 2:40 AM EDT [facility] Blood VENOUS BLOOD SPECIMEN / Unknown IP Care Team Draw / Unknown 05/23/2024 1:19 AM EDT 05/23/2024 2:05 AM EDT Mary De La Fuente MD CHEMISTRY ORDERABL ES Performing Organization Address City/[facility]/ZIP Co de Phone Number [facility] [place] [address] * (ABNORMAL) Basic Metabolic Panel (non-fasting) (05/23/2024 1:19 AM EDT) Glucose 158 65 - 199 mg/dL 05/23/2024 3:34 AM EDT [facility] Comment:Glucose Concentratio n >=200 mg/dL plus symptoms is consistent with Diabetes Mellitus. Blood Urea Nitrogen 85(H) 10 - 20 mg/dL 05/23/2024 3:34 AM EDT [facility] Creatinine 2.70(H) 0.80 - 1.50 mg/dL 05/23/2024 3:34 AM EDT [facility] Sodium 139 135 - 145 mMol/L 05/23/2024 3:34 AM EDT [facility] Potassium 4.9 3.5 - 5.0 mMol/L 05/23/2024 3:34 AM EDT [facility] Chloride 108(H) 98 - 107 mMol/L 05/23/2024 3:34 AM EDT [facility] Carbon Dioxide 20(L) 22 - 31 mMol/L 05/23/2024 3:34 AM EDT [facility] Anion Gap 11 5 - 15 mMol/L 05/23/2024 3:34 AM EDT [facility] Calcium 9.1 8.5 - 10.5 mg/dL 05/23/2024 3:34 AM EDT [facility] Est Glomerular Filtration Rate - Male 25 mL/min/1. 73 m?? 05/23/2024 3:34 AM [facility] Comment: This patient's estimated GFR [...] Foundation Fasting Status 05/23/2024 3:34 AM T [facility] Blood VENOUS BLOOD SPECIMEN / Unknown IP Care Team Draw / Unknown 05/23/2024 1:19 AM EDT 05/23/2024 2:05 AM EDT Mary De La Fuente MD CHEMISTRY ORDERABL ES [facility] [place] [address] * (ABNORMAL) CBC (with Diff) (05/23/2024 1:19 AM EDT) White Blood Cell 12.66(H) 4.00 - 9.50 x10(3)/mc L 05/23/2024 3:44 AM [facility] Red Blood Cell 2.61(L) 4.58 - 5.54 x10(6)/mc L 05/23/2024 3:44 AM [facility] Hemoglobin 7.8(L) 13.7 - 16.5 g/dL 05/23/2024 3:44 AM [facility] Hematocrit 24.3(L) 40.5 - 48.5 % 05/23/2024 3:44 AM [facility] Mean Cell Volume 93.1 82.9 - 93.1 fL 05/23/2024 3:44 AM [facility] Mean Cell Hemoglobin 29.9 27.5 - 32.1 pg 05/23/2024 3:44 AM [facility] Mean Cell Hemoglobin Concentration 32.1 32.0 - 35.7 g/dL 05/23/2024 3:44 AM [facility] Platelet 381(H) 145 - 357 x10(3)/mc L 05/23/2024 3:44 AM [facility] Mean Platelet Volume 11.4 7.6 - 12.9 fL 05/23/2024 3:44 AM [facility] RDW Standard Deviation 55.1(H) 36.0 - 45.0 fL 05/23/2024 3:44 AM [facility] RDW coefficient of variation 16.5(H) 11.4 - 13.8 % 05/23/2024 3:44 AM [facility] NRBC% auto 0.0 % 05/23/2024 3:44 AM [facility] NRBC Absolute 0.00 0.00 - 0.00 x10(3)/mc L 05/23/2024 3:44 AM [facility] Neutrophil % 79.4 % 05/23/2024 3:44 AM [facility] Comment:This is an appended report. These results have been appended to a previously preliminary verified report. Neutrophil Absolute 10.06(H) 1.70 - 6.10 x10(3)/mc L 05/23/2024 3:44 AM [facility] Comment:This is an appended report. These results have been appended to a previously preliminary verified report. Lymph % 5.8 % 05/23/2024 3:44 AM [facility] Comment:This is an appended report. These results have been appended to a previously preliminary verified report. Lymph Absolute 0.73(L) 0.90 - 3.20 x10(3)/mc L 05/23/2024 3:44 AM [facility] Comment:This is an appended report. These results have been appended to a previously preliminary verified report. Monocyte % 12.1 % 05/23/2024 3:44 AM [facility] Comment:This is an appended report. These results have been appended to a previously preliminary verified report. Monocyte Absolute 1.53(H) 0.30 - 0.90 x10(3)/mc L 05/23/2024 3:44 AM [facility] Comment:This is an appended report. These results have been appended to a previously preliminary verified report. Eos % 1.9 % 05/23/2024 3:44 AM [facility] Comment:This is an appended report. These results have been appended to a previously preliminary verified report. Eos Absolute 0.24 0.00 - 0.40 x10(3)/mc L 05/23/2024 3:44 AM [facility] Comment:This is an appended report. These results have been appended to a previously preliminary verified report. Basophil % 0.3 % 05/23/2024 3:44 AM [facility] Comment:This is an appended report. These results have been appended to a previously preliminary verified report. Baso Absolute 0.04 0.00 - 0.10 x10(3)/mc L 05/23/2024 3:44 AM [facility] Comment:This is an appended report. These results have been appended to a previously preliminary verified report. Immature Gran % 0.5 % 3:44 AM EDT [facility] Comment:This is an appended report. These results have been appended to a previously preliminary verified report. Immature Gran Absolute 0.06(H) 0.00 - 0.04 x10(3)/mc L 05/23/2024 3:44 AM EDT [facility] Comment:This is an appended report. These results have been appended to a previously preliminary verified report. Blood VENOUS BLOOD SPECIMEN / Unknown IP Care Team Draw / Unknown 05/23/2024 1:19 AM EDT 05/23/2024 2:05 AM EDT Mary De La Fuente MD HEMATOLOGY ORDERAB LES Performing Organization Address City/[facility]/ZIP Co de Phone Number [facility] [place] [address] * POC, GLUCOSE (05/22/2024 8:21 PM EDT) Glucometer, POC 152 65 - 199 mg/dL 05/22/2024 8:21 PM EDT [facility] Comment:Supplemental ranges: <140 mg/dL before meals <180 mg/dL all other times of the day. Blood CAPILLARY BLOOD / Unknown 05/22/2024 8:21 PM EDT 05/22/2024 8:21 PM EDT Saba Spears MD POINT OF CARE TEST ORDERABLES [facility] [place] [address] * POC, GLUCOSE (05/22/2024 6:20 PM EDT) Glucometer, POC 130 65 - 199 mg/dL 05/22/2024 6:20 PM EDT [facility] Comment:Supplemental ranges: <140 mg/dL before meals <180 mg/dL all other times of the day. Blood CAPILLARY BLOOD / Unknown 05/22/2024 6:20 PM EDT 05/22/2024 6:21 PM EDT Saba Spears MD POINT OF CARE TEST ORDERABLES [facility] [place] [address] * Transfuse RBC (05/22/2024 2:45 PM EDT) Saba Spears MD NURSING TREATMENT O RDERABLES - BLOOD ADMIN * UPPER GI ENDOSCOPY (05/22/2024 12:48 PM EDT) UPPER GI ENDOSCOPY [facility] Endoscopy ___ Procedure Date: 05/22/2024 12:48 PM ? Patient Name: Jossy Shanks ? N: [id number] ? Date of : 1955 ? Age: 69 ? Order #: [id number] ? Instrument Name: [id number] ? ___ Procedure: ? Upper GI endoscopy [...] (PATIENT HISTORY FOUND) (05/22/2024 11:18 AM EDT) [facility] Recheck Progress Complete 05/22/2024 1:01 PM EDT [facility] Blood VENOUS BLOOD SPECIMEN / Unknown IP Care Team Draw / Unknown 05/22/2024 11:18 AM EDT 05/22/2024 11:27 AM EDT Saba Spears MD BLOOD BANK LAB FADY GAO [facility] [place] [address] * [place] and screen [place] (05/22/2024 11:18 AM EDT) Pathologist [facility] ABOR Type O POSITIVE 05/22/2024 12:31 PM EDT [facility] PATIENT HISTORY Found 05/22/2024 12:31 PM EDT [facility] Expires at [id number] on: 05-22-2024 05/22/2024 12:31 PM EDT [facility] ANTIBODY SCREEN AUTOMATED Negative 05/22/2024 12:31 PM EDT [facility] T&S only valid at [facility] 05/22/2024 12:31 PM EDT [facility] Blood VENOUS BLOOD SPECIMEN / Unknown IP Care Team Draw / Unknown 05/22/2024 11:18 AM EDT 05/22/2024 11:27 AM EDT Narrative [facility] - 05/22/2024 12:31 PM EDT This Type and Screen result is only valid at the [facility] Saba Spears MD BLOOD BANK LAB ORDE RABLES Performing Organization Address City/[facility]/ZIP Co de Phone Number [facility] [place] [place] [address] * (ABNORMAL) Hemoglobin and Hematocrit, blood (05/22/2024 11:18 AM EDT) Hemoglobin 6.9(L) 13.7 - 16.5 g/dL 05/22/2024 12:02 PM EDT [facility] Hematocrit 21.4(L) 40.5 - 48.5 % 05/22/2024 12:02 PM EDT [facility] Blood VENOUS BLOOD SPECIMEN / Unknown IP Care Team Draw / Unknown 05/22/2024 11:18 AM EDT 05/22/2024 11:36 AM EDT Saba Spears MD HEMATOLOGY ORDERABL ES [facility] [place] [address] * POC, GLUCOSE (05/22/2024 11:14 AM EDT) Glucometer, POC 126 65 - 199 mg/dL 05/22/2024 11:17 AM EDT [facility] Comment:Supplemental ranges: <140 mg/dL before meals <180 mg/dL all other times of the day. Blood CAPILLARY BLOOD / Unknown 05/22/2024 11:14 AM EDT 05/22/2024 11:18 AM EDT Saba Spears MD POINT OF CARE TEST ORDERABLES [facility] [place] [address] * POC, GLUCOSE (05/22/2024 8:07 AM EDT) Glucometer, POC 132 65 - 199 mg/dL 05/22/2024 8:08 AM EDT [facility] Comment:Supplemental ranges: <140 mg/dL before meals <180 mg/dL all other times of the day. Blood CAPILLARY BLOOD / Unknown 05/22/2024 8:07 AM EDT 05/22/2024 8:08 AM EDT Saba Spears MD POINT OF CARE TEST ORDERABLES Performing Organization Address City/[facility] [[email or web address]] Co de Phone Number [facility] [place] [address] * (ABNORMAL) Hepatic Function Panel (05/22/2024 5:18 AM EDT) Albumin 2.6(L) 3.2 - 5.2 g/dL 05/22/2024 9:50 AM EDT [facility] Aspartate Aminotransferase 18 <=39 unit/L 05/22/2024 9:50 AM EDT [facility] Alanine Aminotransferase 42 0 - 55 unit/L 05/22/2024 9:50 AM EDT [facility] Alkaline Phosphatase 84 40 - 130 unit/L 05/22/2024 9:50 AM EDT [facility] Bilirubin, Total <0.2 <=1.3 mg/dL 05/22/2024 9:50 AM EDT [facility] Bilirubin, Direct <0.2 0.0 - 0.3 mg/dL 05/22/2024 9:50 AM EDT [facility] Protein, Total 6.0(L) 6.1 - 8.0 g/dL 05/22/2024 9:50 AM EDT [facility] Blood VENOUS BLOOD SPECIMEN / Unknown IP Care Team Draw / Unknown 05/22/2024 5:18 AM EDT 05/22/2024 5:45 AM EDT Saba Spears MD CHEMISTRY ORDERABLE S Performing Organization Address City/[facility]/ZIP Co de Phone Number [facility] [place] [address] * Magnesium (05/22/2024 5:18 AM EDT) Magnesium 0.93 0.69 - 1.07 mMol/L 05/22/2024 6:16 AM EDT [facility] Blood VENOUS BLOOD SPECIMEN / Unknown IP Care Team Draw / Unknown 05/22/2024 5:18 AM EDT 05/22/2024 5:45 AM EDT Mary De La Fuente MD CHEMISTRY ORDERABL ES Performing Organization Address [facility] [[email or web address]] Co de Phone Number [facility] [place] [address] * (ABNORMAL) Phosphorus (05/22/2024 5:18 AM EDT) Phosphorus 5.8(H) 2.5 - 4.5 mg/dL 05/22/2024 6:16 AM EDT [facility] Blood VENOUS BLOOD SPECIMEN / Unknown IP Care Team Draw / Unknown 05/22/2024 5:18 AM EDT 05/22/2024 5:45 AM EDT Mary De La Fuente MD CHEMISTRY ORDERABL ES Performing Organization Address City/[facility]/ZIP Co de Phone Number [facility] [place] [address] * (ABNORMAL) Basic Metabolic Panel (05/22/2024 5:18 AM EDT) Glucose 121 65 - 199 mg/dL 05/22/2024 6:16 AM [facility] Comment:Glucose Concentratio n >=200 mg/dL plus symptoms is consistent with Diabetes Mellitus. Blood Urea Nitrogen 97(H) 10 - 20 mg/dL 05/22/2024 6:16 AM [facility] Creatinine 2.77(H) 0.80 - 1.50 mg/dL 05/22/2024 6:16 AM [facility] Sodium 138 135 - 145 mMol/L 05/22/2024 6:16 AM [facility] Potassium 5.1(H) 3.5 - 5.0 mMol/L 05/22/2024 6:16 AM [facility] Chloride 110(H) 98 - 107 mMol/L 05/22/2024 6:16 AM [facility] Carbon Dioxide 20(L) 22 - 31 mMol/L 05/22/2024 6:16 AM [facility] Anion Gap 8 5 - 15 mMol/L 05/22/2024 6:16 AM [facility] Calcium 9.4 8.5 - 10.5 mg/dL 05/22/2024 6:16 AM [facility] Est Glomerular Filtration Rate - Male 24 mL/min/1. 73 m?? 05/22/2024 6:16 AM [facility] Comment: This patient's estimated GFR [...] Fasting Status No 05/22/2024 6:16 AM EDT [facility] Blood VENOUS BLOOD SPECIMEN / Unknown IP Care Team Draw / Unknown 05/22/2024 5:18 AM EDT 05/22/2024 5:45 AM EDT Mary De La Fuente MD CHEMISTRY ORDERABL ES [facility] [place] [address] * (ABNORMAL) CBC (with Diff) (05/22/2024 5:18 AM EDT) White Blood Cell 14.70(H) 4.00 - 9.50 x10(3)/mc L 05/22/2024 5:52 AM EDT [facility] Red Blood Cell 2.37(L) 4.58 - 5.54 x10(6)/mc L 05/22/2024 5:52 AM EDT [facility] Hemoglobin 7.2(L) 13.7 - 16.5 g/dL 05/22/2024 5:52 AM T [facility] Hematocrit 22.1(L) 40.5 - 48.5 % 05/22/2024 5:52 AM T [facility] Mean Cell Volume 93.2(H) 82.9 - 93.1 fL 05/22/2024 5:52 AM T [facility] Mean Cell Hemoglobin 30.4 27.5 - 32.1 pg 05/22/2024 5:52 AM EDT [facility] Mean Cell Hemoglobin Concentration 32.6 32.0 - 35.7 g/dL 05/22/2024 5:52 [facility] Platelet 366(H) 145 - 357 x10(3)/mc L 05/22/2024 5:52 AM EDT [facility] Mean Platelet Volume 10.9 7.6 - 12.9 fL 05/22/2024 5:52 AM [facility] RDW Standard Deviation 54.6(H) 36.0 - 45.0 fL 05/22/2024 5:52 AM [facility] RDW coefficient of variation 16.3(H) 11.4 - 13.8 % 05/22/2024 5:52 AM [facility] NRBC% auto 0.0 % 05/22/2024 5:52 AM [facility] NRBC Absolute 0.00 0.00 - 0.00 x10(3)/mc L 05/22/2024 5:52 AM [facility] Neutrophil % 83.2 % 05/22/2024 5:52 AM [facility] Neutrophil Absolute 12.22(H) 1.70 - 6.10 x10(3)/mc L 05/22/2024 5:52 AM [facility] Lymph % 4.4 % 05/22/2024 5:52 AM [facility] Lymph Absolute 0.65(L) 0.90 - 3.20 x10(3)/mc L 05/22/2024 5:52 AM [facility] Monocyte % 9.7 % 05/22/2024 5:52 AM [facility] Monocyte Absolute 1.43(H) 0.30 - 0.90 x10(3)/mc L 05/22/2024 5:52 AM [facility] Eos % 1.9 % 05/22/2024 5:52 AM [facility] Eos Absolute 0.28 0.00 - 0.40 x10(3)/mc L 05/22/2024 5:52 AM [facility] Basophil % 0.2 % 05/22/2024 5:52 AM [facility] Baso Absolute 0.03 0.00 - 0.10 x10(3)/mc L 05/22/2024 5:52 AM [facility] Immature Gran % 0.6 % 5:52 AM [facility] Immature Gran Absolute 0.09(H) 0.00 - 0.04 x10(3)/mc L 05/22/2024 5:52 AM EDT [facility] Blood VENOUS BLOOD SPECIMEN / Unknown IP Care Team Draw / Unknown 05/22/2024 5:18 AM EDT 05/22/2024 5:45 AM EDT Mary De La Fuente MD HEMATOLOGY ORDERAB LES Performing Organization Address [facility] [[email or web address]] Co de Phone Number [facility] [place] [address] * POC, GLUCOSE (05/22/2024 3:50 AM EDT) Glucometer, POC 140 65 - 199 mg/dL 05/22/2024 3:50 AM EDT [facility] Comment:Supplemental ranges: <140 mg/dL before meals <180 mg/dL all other times of the day. Blood CAPILLARY BLOOD / Unknown 05/22/2024 3:50 AM EDT 05/22/2024 3:50 AM EDT Saba Spears MD POINT OF CARE TEST ORDERABLES Performing Organization Address [facility] de Phone Number [facility] [place] [address] * Scan Doc: Lab (05/22/2024 12:00 AM EDT) Narrative 05/22/2024 12:00 AM EDT Ordered by an unspecified provider. Scanning Provider MEDIA MGR SCAN EXT O RDR/RSLT * POC, GLUCOSE (05/21/2024 11:28 PM EDT) Glucometer, POC 174 65 - 199 mg/dL 05/21/2024 11:28 PM EDT [facility] Comment:Supplemental ranges: <140 mg/dL before meals <180 mg/dL all other times of the day. Blood CAPILLARY BLOOD / Unknown 05/21/2024 11:28 PM EDT 05/21/2024 11:28 PM EDT Saba Spears MD POINT OF CARE TEST ORDERABLES Performing Organization Address [facility] [[email or web address]] Co de Phone Number [facility] [place] [address] * POC, GLUCOSE (05/21/2024 7:49 PM EDT) Glucometer, POC 161 65 - 199 mg/dL 05/21/2024 7:49 PM EDT [facility] Comment:Supplemental ranges: <140 mg/dL before meals <180 mg/dL all other times of the day. Blood CAPILLARY BLOOD / Unknown 05/21/2024 7:49 PM EDT 05/21/2024 7:49 PM EDT Saba Spears MD POINT OF CARE TEST ORDERABLES Performing Organization Address [facility] [[email or web address]] Co de Phone Number [facility] [place] [address] * POC, GLUCOSE (05/21/2024 5:18 PM EDT) Glucometer, POC 152 65 - 199 mg/dL 05/21/2024 5:18 PM EDT [facility] Comment:Supplemental ranges: <140 mg/dL before meals <180 mg/dL all other times of the day. Blood CAPILLARY BLOOD / Unknown 05/21/2024 5:18 PM EDT 05/21/2024 5:18 PM EDT Saba Spears MD POINT OF CARE TEST ORDERABLES Performing Organization Address City/[facility] [[email or web address]] Co de Phone Number [facility] [place] [address] * (ABNORMAL) Hemogram (05/21/2024 3:00 PM EDT) White Blood Cell 14.25(H) 4.00 - 9.50 x10(3)/mc L 05/21/2024 3:41 PM [facility] Red Blood Cell 2.61(L) 4.58 - 5.54 x10(6)/mc L 05/21/2024 3:41 PM [facility] Hemoglobin 7.8(L) 13.7 - 16.5 g/dL 05/21/2024 3:41 PM [facility] Hematocrit 24.5(L) 40.5 - 48.5 % 05/21/2024 3:41 PM [facility] Mean Cell Volume 93.9(H) 82.9 - 93.1 fL 05/21/2024 3:41 PM [facility] Mean Cell Hemoglobin 29.9 27.5 - 32.1 pg 05/21/2024 3:41 PM [facility] Mean Cell Hemoglobin Concentration 31.8(L) 32.0 - 35.7 g/dL 05/21/2024 3:41 PM [facility] Platelet 456(H) 145 - 357 x10(3)/mc L 05/21/2024 3:41 PM [facility] Mean Platelet Volume 11.1 7.6 - 12.9 fL 05/21/2024 3:41 PM [facility] RDW Standard Deviation 55.2(H) 36.0 - 45.0 fL 05/21/2024 3:41 PM [facility] RDW coefficient of variation 16.1(H) 11.4 - 13.8 % 05/21/2024 3:41 PM [facility] NRBC% auto 0.0 % 05/21/2024 3:41 PM [facility] NRBC Absolute 0.00 0.00 - 0.00 x10(3)/mc L 05/21/2024 3:41 PM [facility] Blood VENOUS BLOOD SPECIMEN / Unknown IP Care Team Draw / Unknown 05/21/2024 3:00 PM EDT 05/21/2024 3:36 PM EDT Saba Spears MD HEMATOLOGY ORDERABL ES Performing Organization Address City/[facility]/ZIP Co de Phone Number [facility] [place] [address] * POC, GLUCOSE (05/21/2024 12:39 PM EDT) Glucometer, POC 144 65 - 199 mg/dL 05/21/2024 12:39 PM EDT [facility] Comment:Supplemental ranges: <140 mg/dL before meals <180 mg/dL all other times of the day. Blood CAPILLARY BLOOD / Unknown 05/21/2024 12:39 PM EDT 05/21/2024 12:39 PM EDT Saba Spears MD POINT OF CARE TEST ORDERABLES Performing Organization Address [facility] [[email or web address]] Co de Phone Number [facility] [place] [address] * IR Tunneled Central Venous Access Non-Dialysis [...] and osteomyelitis s/p 2ng toe amputation requiring correction IV antibiotic administration who presents to Interventional [...] guidance and a 4Fr sheath placed. ??[address] injection compatible single lumen catheter was [...] the IR Nurse. ? Saba Spears MD [facility] [place] * POC, GLUCOSE (05/21/2024 9:12 AM EDT) [facility] Signature Glucometer, POC 144 65 - 199 mg/dL 05/21/2024 9:12 AM EDT [facility] Comment:Supplemental ranges: <140 mg/dL before meals <180 mg/dL all other times of the day. Blood CAPILLARY BLOOD / Unknown 05/21/2024 9:12 AM EDT 05/21/2024 9:12 AM EDT Saba Spears MD POINT OF CARE TEST ORDERABLES [facility] [place] [address] * POC, GLUCOSE (05/21/2024 8:32 AM EDT) Glucometer, POC 135 65 - 199 mg/dL 05/21/2024 8:32 AM EDT [facility] Comment:Supplemental ranges: <140 mg/dL before meals <180 mg/dL all other times of the day. Blood CAPILLARY BLOOD / Unknown 05/21/2024 8:32 AM EDT 05/21/2024 8:32 AM EDT Saba Spears MD POINT OF CARE TEST ORDERABLES [facility] [place] [address] * (ABNORMAL) Hemogram (05/21/2024 8:27 AM EDT) White Blood Cell 15.77(H) 4.00 - 9.50 x10(3)/mc L 05/21/2024 8:54 AM EDT [facility] Red Blood Cell 2.47(L) 4.58 - 5.54 x10(6)/mc L 05/21/2024 8:54 AM EDT [facility] Hemoglobin 7.5(L) 13.7 - 16.5 g/dL 05/21/2024 8:54 AM EDT [facility] Hematocrit 23.0(L) 40.5 - 48.5 % 05/21/2024 8:54 AM EDT [facility] Mean Cell Volume 93.1 82.9 - 93.1 fL 05/21/2024 8:54 AM EDT [facility] Mean Cell Hemoglobin 30.4 27.5 - 32.1 pg 05/21/2024 8:54 AM EDT [facility] Mean Cell Hemoglobin Concentration 32.6 32.0 - 35.7 g/dL 05/21/2024 8:54 AM EDT [facility] Platelet 398(H) 145 - 357 x10(3)/mc L 05/21/2024 8:54 AM EDT [facility] Mean Platelet Volume 10.8 7.6 - 12.9 fL 05/21/2024 8:54 AM EDT [facility] RDW Standard Deviation 54.6(H) 36.0 - 45.0 fL 05/21/2024 8:54 AM EDT [facility] RDW coefficient of variation 16.1(H) 11.4 - 13.8 % 05/21/2024 8:54 AM EDT [facility] NRBC% auto 0.0 % 05/21/2024 8:54 AM EDT [facility] NRBC Absolute 0.00 0.00 - 0.00 x10(3)/mc L 05/21/2024 8:54 AM EDT [facility] Blood VENOUS BLOOD SPECIMEN / Unknown IP Care Team Draw / Unknown 05/21/2024 8:27 AM EDT 05/21/2024 8:42 AM EDT Saba Spears MD HEMATOLOGY ORDERABL ES Performing Organization Address City/[facility]/ZIP Co de Phone Number [facility] [place] [address] * (ABNORMAL) CRP, acute inflammation (05/21/2024 4:58 AM EDT) C-Reactive Protein 14.1(H) <=4.9 mg/L 05/21/2024 10:05 AM EDT [facility] Blood VENOUS BLOOD SPECIMEN / Unknown IP Care Team Draw / Unknown 05/21/2024 4:58 AM EDT 05/21/2024 5:17 AM EDT Saba Spears MD CHEMISTRY ORDERABLE S [facility] [place] [address] * Magnesium (05/21/2024 4:58 AM EDT) Magnesium 0.99 0.69 - 1.07 mMol/L 05/21/2024 5:51 AM EDT [facility] Blood VENOUS BLOOD SPECIMEN / Unknown IP Care Team Draw / Unknown 05/21/2024 4:58 AM EDT 05/21/2024 5:17 AM EDT Mary De La Fuente MD CHEMISTRY ORDERABL ES Performing Organization Address City/[facility]/ZIP Co de Phone Number [facility] [place] [address] * (ABNORMAL) Phosphorus (05/21/2024 4:58 AM EDT) Phosphorus 6.2(H) 2.5 - 4.5 mg/dL 05/21/2024 5:51 AM EDT [facility] Blood VENOUS BLOOD SPECIMEN / Unknown IP Care Team Draw / Unknown 05/21/2024 4:58 AM EDT 05/21/2024 5:17 AM EDT Mary De La Fuente MD CHEMISTRY ORDERABL ES Performing Organization Address City/[facility]/ZIP Co de Phone Number [facility] [place] [address] * (ABNORMAL) Basic Metabolic Panel (05/21/2024 4:58 AM EDT) Glucose 151 65 - 199 mg/dL 05/21/2024 5:51 AM EDT [facility] Comment:Glucose Concentratio n >=200 mg/dL plus symptoms is consistent with Diabetes Mellitus. Blood Urea Nitrogen 110(H) 10 - 20 mg/dL 05/21/2024 5:51 AM EDT [facility] Creatinine 3.04(H) 0.80 - 1.50 mg/dL 05/21/2024 5:51 AM EDT [facility] Sodium 138 135 - 145 mMol/L 05/21/2024 5:51 AM EDT [facility] Potassium 5.1(H) 3.5 - 5.0 mMol/L 05/21/2024 5:51 AM EDT [facility] Chloride 111(H) 98 - 107 mMol/L 05/21/2024 5:[facility] Carbon Dioxide 18(L) 22 - 31 mMol/L 05/21/2024 5:51 AM EDT [facility] Anion Gap 9 5 - 15 mMol/L 05/21/2024 5:51 AM EDT [facility] Calcium 9.4 8.5 - 10.5 mg/dL 05/21/2024 5:51 AM EDT [facility] Est Glomerular Filtration Rate - Male 21 mL/min/1. 73 m?? 05/21/2024 5:51 AM [facility] Comment: This patient's estimated GFR [...] Foundation Fasting Status No 05/21/2024 5:51 AM T [facility] Blood VENOUS BLOOD SPECIMEN / Unknown IP Care Team Draw / Unknown 05/21/2024 4:58 AM EDT 05/21/2024 5:17 AM EDT Mary De La Fuente MD CHEMISTRY ORDERABL ES [facility] [place] [place] [address] * (ABNORMAL) CBC (with Diff) (05/21/2024 4:58 AM EDT) White Blood Cell 14.49(H) 4.00 - 9.50 x10(3)/mc L 05/21/2024 5:28 AM EDT [facility] Red Blood Cell 2.54(L) 4.58 - 5.54 x10(6)/mc L 05/21/2024 5:28 AM [facility] Hemoglobin 7.5(L) 13.7 - 16.5 g/dL 05/21/2024 5:28 AM [facility] Hematocrit 23.6(L) 40.5 - 48.5 % 05/21/2024 5:28 AM [facility] Mean Cell Volume 92.9 82.9 - 93.1 fL 05/21/2024 5:28 AM [facility] Mean Cell Hemoglobin 29.5 27.5 - 32.1 pg 05/21/2024 5:28 AM [facility] Mean Cell Hemoglobin Concentration 31.8(L) 32.0 - 35.7 g/dL 05/21/2024 5:28 AM [facility] Platelet 388(H) 145 - 357 x10(3)/mc L 05/21/2024 5:28 AM [facility] Mean Platelet Volume 10.8 7.6 - 12.9 fL 05/21/2024 5:28 AM [facility] RDW Standard Deviation 53.6(H) 36.0 - 45.0 fL 05/21/2024 5:28 AM [facility] RDW coefficient of variation 16.0(H) 11.4 - 13.8 % 05/21/2024 5:28 AM [facility] NRBC% auto 0.0 % 05/21/2024 5:28 AM [facility] NRBC Absolute 0.00 0.00 - 0.00 x10(3)/mc L 05/21/2024 5:28 AM [facility] Neutrophil % 81.6 % 05/21/2024 5:28 AM [facility] Neutrophil Absolute 11.83(H) 1.70 - 6.10 x10(3)/mc L 05/21/2024 5:28 AM EDT [facility] Lymph % 6.1 % 05/21/2024 5:28 AM EDT [facility] Lymph Absolute 0.89(L) 0.90 - 3.20 x10(3)/mc L 05/21/2024 5:28 AM EDT [facility] Monocyte % 9.4 % 05/21/2024 5:28 AM EDT [facility] Monocyte Absolute 1.36(H) 0.30 - 0.90 x10(3)/mc L 05/21/2024 5:28 AM EDT [facility] Eos % 2.1 % 05/21/2024 5:28 AM EDT [facility] Eos Absolute 0.30 0.00 - 0.40 x10(3)/mc L 05/21/2024 5:28 AM EDT [facility] Basophil % 0.2 % 05/21/2024 5:28 AM EDT [facility] Baso Absolute 0.03 0.00 - 0.10 x10(3)/mc L 05/21/2024 5:28 AM EDT [facility] Immature Gran % 0.6 % 5:28 AM EDT [facility] Immature Gran Absolute 0.08(H) 0.00 - 0.04 x10(3)/mc L 05/21/2024 5:28 AM EDT [facility] Blood VENOUS BLOOD SPECIMEN / Unknown IP Care Team Draw / Unknown 05/21/2024 4:58 AM EDT 05/21/2024 5:17 AM EDT Mary De La Fuente MD HEMATOLOGY ORDERAB LES [facility] [place] [address] * POC, GLUCOSE (05/21/2024 3:45 AM EDT) [facility] Signature Glucometer, POC 155 65 - 199 mg/dL 05/21/2024 3:45 AM EDT [facility] Comment:Supplemental ranges: <140 mg/dL before meals <180 mg/dL all other times of the day. Blood CAPILLARY BLOOD / Unknown 05/21/2024 3:45 AM EDT 05/21/2024 3:46 AM EDT Saba Spears MD POINT OF CARE TEST ORDERABLES Performing Organization Address City/[facility]/ZIP Co de Phone Number [facility] [place] [address] * POC, GLUCOSE (05/20/2024 11:44 PM EDT) Glucometer, POC 132 65 - 199 mg/dL 05/20/2024 11:44 PM EDT [facility] Comment:Supplemental ranges: <140 mg/dL before meals <180 mg/dL all other times of the day. Blood CAPILLARY BLOOD / Unknown 05/20/2024 11:44 PM EDT 05/20/2024 11:44 PM EDT Saba Spears MD POINT OF CARE TEST ORDERABLES Performing Organization Address [facility] [[email or web address]] Co de Phone Number [facility] [place] [address] * POC, GLUCOSE (05/20/2024 7:24 PM EDT) Glucometer, POC 166 65 - 199 mg/dL 05/20/2024 7:24 PM EDT [facility] Comment:Supplemental ranges: <140 mg/dL before meals <180 mg/dL all other times of the day. Blood CAPILLARY BLOOD / Unknown 05/20/2024 7:24 PM EDT 05/20/2024 7:25 PM EDT Saba Spears MD POINT OF CARE TEST ORDERABLES Performing Organization Address City/[facility]/ZIP Co de Phone Number [facility] [place] [address] * POC, GLUCOSE (05/20/2024 4:24 PM EDT) Glucometer, POC 170 65 - 199 mg/dL 05/20/2024 4:24 PM EDT [facility] Comment:Supplemental ranges: <140 mg/dL before meals <180 mg/dL all other times of the day. Blood CAPILLARY BLOOD / Unknown 05/20/2024 4:24 PM EDT 05/20/2024 4:24 PM EDT Saba Spears MD POINT OF CARE TEST ORDERABLES [facility] [place] [address] * (ABNORMAL) Hemogram (05/20/2024 12:35 PM EDT) White Blood Cell 14.66(H) 4.00 - 9.50 x10(3)/mc L 05/20/2024 12:50 PM EDT [facility] Red Blood Cell 2.81(L) 4.58 - 5.54 x10(6)/mc L 05/20/2024 12:50 PM EDT [facility] Hemoglobin 8.4(L) 13.7 - 16.5 g/dL 05/20/2024 12:50 PM EDT [facility] Hematocrit 26.2(L) 40.5 - 48.5 % 05/20/2024 12:50 PM EDT [facility] Mean Cell Volume 93.2(H) 82.9 - 93.1 fL 05/20/2024 12:50 PM EDT [facility] Mean Cell Hemoglobin 29.9 27.5 - 32.1 pg 05/20/2024 12:50 PM EDT [facility] Mean Cell Hemoglobin Concentration 32.1 32.0 - 35.7 g/dL 05/20/2024 12:50 PM EDT [facility] Platelet 416(H) 145 - 357 x10(3)/mc L 05/20/2024 12:50 PM EDT [facility] Mean Platelet Volume 10.4 7.6 - 12.9 fL 05/20/2024 12:50 PM EDT [facility] RDW Standard Deviation 52.9(H) 36.0 - 45.0 fL 05/20/2024 12:50 PM EDT [facility] RDW coefficient of variation 15.6(H) 11.4 - 13.8 % 05/20/2024 12:50 PM EDT [facility] NRBC% auto 0.0 % 05/20/2024 12:50 PM EDT [facility] NRBC Absolute 0.00 0.00 - 0.00 x10(3)/mc L 05/20/2024 12:50 PM EDT [facility] Blood VENOUS BLOOD SPECIMEN / Unknown IP Care Team Draw / Unknown 05/20/2024 12:35 PM EDT 05/20/2024 12:43 PM EDT Saba Spears MD HEMATOLOGY ORDERABL ES Performing Organization Address City/[facility]/ZIP Co de Phone Number [facility] [place] [address] * POC, GLUCOSE (05/20/2024 11:52 AM EDT) [facility] Glucometer, POC 176 65 - 199 mg/dL 05/20/2024 11:52 AM EDT [facility] Comment:Supplemental ranges: <140 mg/dL before meals <180 mg/dL all other times of the day. Blood CAPILLARY BLOOD / Unknown 05/20/2024 11:52 AM EDT 05/20/2024 11:52 AM EDT Saba Spears MD POINT OF CARE TEST ORDERABLES [facility] [place] [address] * US Retroperitoneal Complete (05/20/2024 10:36 AM EDT) WORKSTATION ID [id number] RAD Anatomical Region Laterality Modality Abdomen Ultrasound [...] who have questions, please contact the health specialist wound care that requested your imaging first. ?Teofilo Ruiz, Staff Physician Electronically Signed Final Report ?? 05/20/2024 11:36 am Narrative 05/20/2024 11:37 AM EDT Renal ? (Signed Final 05/20/2024 11:36 am) PATIENT INFO: ID #: ? [id number] ?: ??[birth year] (69 yrs)(M) Name: ? JOSSY Spivey KNIGHTS ? Visit Date: 05/20/2024 10:34 am PERFORMED BY: Attending: ?Joseph SOTOMAYOR, Teofilo Flores Resident: ? Kuldeep SOTOMAYOR, Trinidad Wright Performed By: ? Lulu Shin RDMS Referred By: ?SABA Goodson TORY Location: ? [place] SERVICE(S) PROVIDED: URETRO - Retroperitoneal Complete - [id number] ? [id number] INDICATIONS: CKD, increase BUN TECHNIQUE/SCAN QUALITY: Scan [...] 05/20/2024 11:36 am) PATIENT INFO: ID #: [id number] : [birth year] (69 yrs)(M) Name: JOSSY SHANKS Visit Date: 05/20/2024 10:34 am PERFORMED BY: Attending: Teofilo Ruiz MD Resident: Trinidad Light MD Performed By: Lulu Shin RDMS Referred By: SABA SPEARS Location: [facility] SERVICE(S) PROVIDED: URETRO - Retroperitoneal Complete - [id number] INDICATIONS: CKD, increase BUN TECHNIQUE/SCAN QUALITY: Scan [...] who have questions, please contact the health specialist wound care that requested your imaging first. Teofilo uRiz, Staff Physician Electronically Signed Final Report 05/20/2024 11:36 am Saba Spears MD IMG US GEN ORDERABL ES * POC, GLUCOSE (05/20/2024 8:03 AM EDT) [facility] Glucometer, POC 180 65 - 199 mg/dL 05/20/2024 8:03 AM EDT [facility] Comment:Supplemental ranges: <140 mg/dL before meals <180 mg/dL all other times of the day. Blood CAPILLARY BLOOD / Unknown 05/20/2024 8:03 AM EDT 05/20/2024 8:03 AM EDT Saba Spears MD POINT OF CARE TEST ORDERABLES Performing Organization Address City/[facility]/ZIP Co de Phone Number [facility] [place] [address] * Magnesium (05/20/2024 4:27 AM EDT) Magnesium 0.99 0.69 - 1.07 mMol/L 05/20/2024 5:27 AM EDT [facility] Blood VENOUS BLOOD SPECIMEN / Unknown IP Care Team Draw / Unknown 05/20/2024 4:27 AM EDT 05/20/2024 4:52 AM EDT Mary De La Fuente MD CHEMISTRY ORDERABL ES Performing Organization Address [facility] [[email or web address]] Co de Phone Number [facility] [place] [address] * (ABNORMAL) Phosphorus (05/20/2024 4:27 AM EDT) Phosphorus 5.1(H) 2.5 - 4.5 mg/dL 05/20/2024 5:27 AM EDT [facility] Blood VENOUS BLOOD SPECIMEN / Unknown IP Care Team Draw / Unknown 05/20/2024 4:27 AM EDT 05/20/2024 4:52 AM EDT Mary De La Fuente MD CHEMISTRY ORDERABL ES Performing Organization Address [facility] [[email or web address]] Co de Phone Number [facility] [place] [address] * (ABNORMAL) Basic Metabolic Panel (non-fasting) (05/20/2024 4:27 AM EDT) Glucose 173 65 - 199 mg/dL 05/20/2024 6:27 AM [facility] Comment:Glucose Concentratio n >=200 mg/dL plus symptoms is consistent with Diabetes Mellitus. Blood Urea Nitrogen 121(H) 10 - 20 mg/dL 05/20/2024 6:27 AM [facility] Creatinine 2.78(H) 0.80 - 1.50 mg/dL 05/20/2024 6:27 AM [facility] Sodium 138 135 - 145 mMol/L 05/20/2024 6:27 AM [facility] Potassium 5.4(H) 3.5 - 5.0 mMol/L 05/20/2024 6:27 AM [facility] Chloride 109(H) 98 - 107 mMol/L 05/20/2024 6:27 AM [facility] Carbon Dioxide 18(L) 22 - 31 mMol/L 05/20/2024 6:27 AM [facility] Anion Gap 11 5 - 15 mMol/L 05/20/2024 6:27 AM [facility] Calcium 9.4 8.5 - 10.5 mg/dL 05/20/2024 6:27 AM [facility] Est Glomerular Filtration Rate - Male 24 mL/min/1. 73 m?? 05/20/2024 6:27 AM [facility] Comment: This patient's estimated GFR [...] Foundation Fasting Status No 05/20/2024 6:27 AM [facility] Blood VENOUS BLOOD SPECIMEN / Unknown IP Care Team Draw / Unknown 05/20/2024 4:27 AM EDT 05/20/2024 4:52 AM EDT Mary De La Fuente MD CHEMISTRY ORDERABL ES [facility] [place] [address] * (ABNORMAL) CBC (with Diff) (05/20/2024 4:27 AM EDT) White Blood Cell 15.20(H) 4.00 - 9.50 x10(3)/mc L 05/20/2024 5:32 AM EDT [facility] Red Blood Cell 2.69(L) 4.58 - 5.54 x10(6)/mc L 05/20/2024 5:32 AM EDT [facility] Hemoglobin 7.9(L) 13.7 - 16.5 g/dL 05/20/2024 5:32 AM EDT [facility] Hematocrit 25.5(L) 40.5 - 48.5 % 05/20/2024 5:32 AM EDT [facility] Mean Cell Volume 94.8(H) 82.9 - 93.1 fL 05/20/2024 5:32 AM [facility] Mean Cell Hemoglobin 29.4 27.5 - 32.1 pg 05/20/2024 5:32 AM EDT [facility] Mean Cell Hemoglobin Concentration 31.0(L) 32.0 - 35.7 g/dL 05/20/2024 5:32 AM EDT [facility] Platelet 403(H) 145 - 357 x10(3)/mc L 05/20/2024 5:32 AM EDT [facility] Mean Platelet Volume 10.7 7.6 - 12.9 fL 05/20/2024 5:32 AM EDT [facility] RDW Standard Deviation 54.7(H) 36.0 - 45.0 fL 05/20/2024 5:32 AM EDT [facility] RDW coefficient of variation 15.8(H) 11.4 - 13.8 % 05/20/2024 5:32 AM [facility] NRBC% auto 0.0 % 05/20/2024 5:32 AM [facility] NRBC Absolute 0.00 0.00 - 0.00 x10(3)/mc L 05/20/2024 5:32 AM [facility] Neutrophil % 82.1 % 05/20/2024 5:32 AM [facility] Neutrophil Absolute 12.49(H) 1.70 - 6.10 x10(3)/mc L 05/20/2024 5:32 AM [facility] Lymph % 6.3 % 05/20/2024 5:32 AM [facility] Lymph Absolute 0.96 0.90 - 3.20 x10(3)/mc L 05/20/2024 5:32 AM [facility] Monocyte % 8.7 % 05/20/2024 5:32 AM [facility] Monocyte Absolute 1.32(H) 0.30 - 0.90 x10(3)/mc L 05/20/2024 5:32 AM [facility] Eos % 2.0 % 05/20/2024 5:32 AM [facility] Eos Absolute 0.30 0.00 - 0.40 x10(3)/mc L 05/20/2024 5:32 AM [facility] Basophil % 0.3 % 05/20/2024 5:32 AM [facility] Baso Absolute 0.04 0.00 - 0.10 x10(3)/mc L 05/20/2024 5:32 AM [facility] Immature Gran % 0.6 % 5:32 AM [facility] Immature Gran Absolute 0.09(H) 0.00 - 0.04 x10(3)/mc L 05/20/2024 5:32 AM EDT [facility] Blood VENOUS BLOOD SPECIMEN / Unknown IP Care Team Draw / Unknown 05/20/2024 4:27 AM EDT 05/20/2024 4:52 AM EDT Mary De La Fuente MD HEMATOLOGY ORDERAB LES [facility] [place] [address] * POC, GLUCOSE (05/20/2024 3:11 AM EDT) Glucometer, POC 163 65 - 199 mg/dL 05/20/2024 3:12 AM EDT [facility] Comment:Supplemental ranges: <140 mg/dL before meals <180 mg/dL all other times of the day. Blood CAPILLARY BLOOD / Unknown 05/20/2024 3:11 AM EDT 05/20/2024 3:12 AM EDT Saba Spears MD POINT OF CARE TEST ORDERABLES Performing Organization Address City/[facility]/ZIP Co de Phone Number [facility] [place] [address] * POC, GLUCOSE (05/19/2024 11:07 PM EDT) Glucometer, POC 136 65 - 199 mg/dL 05/19/2024 11:07 PM EDT [facility] Comment:Supplemental ranges: <140 mg/dL before meals <180 mg/dL all other times of the day. Blood CAPILLARY BLOOD / Unknown 05/19/2024 11:07 PM EDT 05/19/2024 11:07 PM EDT Saba Spears MD POINT OF CARE TEST ORDERABLES [facility] [place] [address] * POC, GLUCOSE (05/19/2024 8:20 PM EDT) Glucometer, POC 150 65 - 199 mg/dL 05/19/2024 8:20 PM EDT [facility] Comment:Supplemental ranges: <140 mg/dL before meals <180 mg/dL all other times of the day. Blood CAPILLARY BLOOD / Unknown 05/19/2024 8:20 PM EDT 05/19/2024 8:21 PM EDT Saba Spears MD POINT OF CARE TEST ORDERABLES [facility] [place] [address] * (ABNORMAL) Iron and TIBC (05/19/2024 5:09 PM EDT) [facility] Iron 58 45 - 160 mcg/dL 05/19/2024 6:56 PM EDT [facility] Unsaturated Iron Binding Capacity 143 110 - 370 mcg/dL 05/19/2024 6:56 PM EDT [facility] TIBC 201(L) 250 - 450 mcg/dL 05/19/2024 6:56 PM EDT [facility] Iron Saturation 29 20 - 50 % 6:56 PM EDT [facility] Blood VENOUS BLOOD SPECIMEN / Unknown IP Care Team Draw / Unknown 05/19/2024 5:09 PM EDT 05/19/2024 5:43 PM EDT Saba Spears MD CHEMISTRY ORDERABLE S [facility] [place] [address] * PTH (05/19/2024 5:09 PM EDT) [facility] Parathyroid Hormone 27 15 - 65 pg/mL 05/19/2024 6:15 PM EDT [facility] Blood VENOUS BLOOD SPECIMEN / Unknown IP Care Team Draw / Unknown 05/19/2024 5:09 PM EDT 05/19/2024 5:43 PM EDT Saba Spears MD CHEMISTRY ORDERABLE S [facility] [place] [address] * Ferritin (05/19/2024 5:08 PM EDT) Ferritin 191 31 - 409 ng/ml 05/19/2024 6:24 PM EDT [facility] Blood VENOUS BLOOD SPECIMEN / Unknown IP Care Team Draw / Unknown 05/19/2024 5:08 PM EDT 05/19/2024 5:43 PM EDT Saba Spears MD CHEMISTRY ORDERABLE S Performing Organization Address City/[facility]/ZIP Co de Phone Number [facility] [place] [address] * POC, GLUCOSE (05/19/2024 3:59 PM EDT) Glucometer, POC 185 65 - 199 mg/dL 05/19/2024 3:59 PM EDT [facility] Comment:Supplemental ranges: <140 mg/dL before meals <180 mg/dL all other times of the day. Blood CAPILLARY BLOOD / Unknown 05/19/2024 3:59 PM EDT 05/19/2024 3:59 PM EDT Saba Spears MD POINT OF CARE TEST ORDERABLES [facility] [place] [address] * POC, GLUCOSE (05/19/2024 12:32 PM EDT) Glucometer, POC 143 65 - 199 mg/dL 05/19/2024 12:32 PM EDT [facility] Comment:Supplemental ranges: <140 mg/dL before meals <180 mg/dL all other times of the day. Blood CAPILLARY BLOOD / Unknown 05/19/2024 12:32 PM EDT 05/19/2024 12:32 PM EDT Saba Spears MD POINT OF CARE TEST ORDERABLES Performing Organization Address City/[facility]/ZIP Co de Phone Number [facility] [place] [address] * POC, GLUCOSE (05/19/2024 8:12 AM EDT) Glucometer, POC 181 65 - 199 mg/dL 05/19/2024 8:13 AM EDT [facility] Comment:Supplemental ranges: <140 mg/dL before meals <180 mg/dL all other times of the day. Blood CAPILLARY BLOOD / Unknown 05/19/2024 8:12 AM EDT 05/19/2024 8:13 AM EDT Saba Spears MD POINT OF CARE TEST ORDERABLES Performing Organization Address [facility] [[email or web address]] Co de Phone Number [facility] [place] [address] * (ABNORMAL) Magnesium (05/19/2024 5:11 AM EDT) Magnesium 1.08(H) 0.69 - 1.07 mMol/L 05/19/2024 5:58 AM EDT [facility] Blood VENOUS BLOOD SPECIMEN / Unknown IP Care Team Draw / Unknown 05/19/2024 5:11 AM EDT 05/19/2024 5:30 AM EDT Mary De La Fuente MD CHEMISTRY ORDERABL ES Performing Organization Address City/[facility]/ZIP Co de Phone Number [facility] [place] [address] * (ABNORMAL) Phosphorus (05/19/2024 5:11 AM EDT) Phosphorus 5.1(H) 2.5 - 4.5 mg/dL 05/19/2024 5:58 AM EDT [facility] Blood VENOUS BLOOD SPECIMEN / Unknown IP Care Team Draw / Unknown 05/19/2024 5:11 AM EDT 05/19/2024 5:30 AM EDT Mary De La Fuente MD CHEMISTRY ORDERABL ES [facility] [place] [address] * (ABNORMAL) Basic Metabolic Panel (non-fasting) (05/19/2024 5:11 AM EDT) Glucose 162 65 - 199 mg/dL 05/19/2024 6:53 AM EDT [facility] Comment:Glucose Concentratio n >=200 mg/dL plus symptoms is consistent with Diabetes Mellitus. Blood Urea Nitrogen 118(H) 10 - 20 mg/dL 05/19/2024 6:53 AM [facility] Creatinine 2.75(H) 0.80 - 1.50 mg/dL 05/19/2024 6:53 AM [facility] Sodium 136 135 - 145 mMol/L 05/19/2024 6:53 AM [facility] Potassium 5.2(H) 3.5 - 5.0 mMol/L 05/19/2024 6:53 AM [facility] Chloride 108(H) 98 - 107 mMol/L 05/19/2024 6:53 AM [facility] Carbon Dioxide 18(L) 22 - 31 mMol/L 05/19/2024 6:53 AM [facility] Anion Gap 10 5 - 15 mMol/L 05/19/2024 6:53 AM [facility] Calcium 9.3 8.5 - 10.5 mg/dL 05/19/2024 6:53 AM [facility] Est Glomerular Filtration Rate - Male 24 mL/min/1. 73 m?? 05/19/2024 6:53 AM [facility] Comment: This patient's estimated GFR [...] Fasting Status No 05/19/2024 6:53 AM EDT [facility] Blood VENOUS BLOOD SPECIMEN / Unknown IP Care Team Draw / Unknown 05/19/2024 5:11 AM EDT 05/19/2024 5:30 AM EDT Mary De La Fuente MD CHEMISTRY ORDERABL ES [facility] [place] [address] * (ABNORMAL) CBC (with Diff) (05/19/2024 5:11 AM EDT) White Blood Cell 12.77(H) 4.00 - 9.50 x10(3)/mc L 05/19/2024 5:37 AM [facility] Red Blood Cell 3.11(L) 4.58 - 5.54 x10(6)/mc L 05/19/2024 5:37 AM [facility] Hemoglobin 9.3(L) 13.7 - 16.5 g/dL 05/19/2024 5:37 AM [facility] Hematocrit 28.9(L) 40.5 - 48.5 % 05/19/2024 5:37 [facility] Mean Cell Volume 92.9 82.9 - 93.1 fL 05/19/2024 5:37 AM [facility] Mean Cell Hemoglobin 29.9 27.5 - 32.1 pg 05/19/2024 5:37 AM [facility] Mean Cell Hemoglobin Concentration 32.2 32.0 - 35.7 g/dL 05/19/2024 5:37 AM [facility] Platelet 379(H) 145 - 357 x10(3)/mc L 05/19/2024 5:37 AM [facility] Mean Platelet Volume 10.2 7.6 - 12.9 fL 05/19/2024 5:37 AM [facility] RDW Standard Deviation 53.1(H) 36.0 - 45.0 fL 05/19/2024 5:37 AM [facility] RDW coefficient of variation 15.8(H) 11.4 - 13.8 % 05/19/2024 5:37 AM [facility] NRBC% auto 0.0 % 05/19/2024 5:37 AM [facility] NRBC Absolute 0.00 0.00 - 0.00 x10(3)/mc L 05/19/2024 5:37 AM [facility] Neutrophil % 78.9 % 05/19/2024 5:37 AM [facility] Neutrophil Absolute 10.06(H) 1.70 - 6.10 x10(3)/mc L 05/19/2024 5:37 AM [facility] Lymph % 8.1 % 05/19/2024 5:37 AM [facility] Lymph Absolute 1.03 0.90 - 3.20 x10(3)/mc L 05/19/2024 5:37 AM [facility] Monocyte % 10.3 % 05/19/2024 5:37 AM [facility] Monocyte Absolute 1.32(H) 0.30 - 0.90 x10(3)/mc L 05/19/2024 5:37 AM [facility] Eos % 1.6 % 05/19/2024 5:37 AM [facility] Eos Absolute 0.21 0.00 - 0.40 x10(3)/mc L 05/19/2024 5:37 AM EDT [facility] Basophil % 0.2 % 05/19/2024 5:37 AM EDT [facility] Baso Absolute 0.03 0.00 - 0.10 x10(3)/mc L 05/19/2024 5:37 AM EDT [facility] Immature Gran % 0.9 % 5:37 AM EDT [facility] Immature Gran Absolute 0.12(H) 0.00 - 0.04 x10(3)/mc L 05/19/2024 5:37 AM EDT [facility] Blood VENOUS BLOOD SPECIMEN / Unknown IP Care Team Draw / Unknown 05/19/2024 5:11 AM EDT 05/19/2024 5:30 AM EDT Mary De La Fuente MD HEMATOLOGY ORDERAB LES Performing Organization Address City/[facility]/ZIP Co de Phone Number [facility] [place] [address] * POC, GLUCOSE (05/19/2024 3:27 AM EDT) Glucometer, POC 171 65 - 199 mg/dL 05/19/2024 3:28 AM EDT [facility] Comment:Supplemental ranges: <140 mg/dL before meals <180 mg/dL all other times of the day. Blood CAPILLARY BLOOD / Unknown 05/19/2024 3:27 AM EDT 05/19/2024 3:28 AM EDT Saba Spears MD POINT OF C[place] [address] * POC, GLUCOSE (05/19/2024 12:02 AM EDT) Glucometer, POC 183 65 - 199 mg/dL 05/19/2024 12:02 AM EDT [facility] Comment:Supplemental ranges: <140 mg/dL before meals <180 mg/dL all other times of the day. Blood CAPILLARY BLOOD / Unknown 05/19/2024 12:02 AM EDT 05/19/2024 12:02 AM EDT Saba Spears MD POINT OF CARE TEST ORDERABLES Performing Organization Address City/[facility]/ZIP Co de Phone Number [facility] [place] [address] * (ABNORMAL) POC, GLUCOSE (05/18/2024 8:05 PM EDT) Glucometer, POC 207(H) 65 - 199 mg/dL 05/18/2024 8:06 PM EDT [facility] Comment:Supplemental ranges: <140 mg/dL before meals <180 mg/dL all other times of the day. Blood CAPILLARY BLOOD / Unknown 05/18/2024 8:05 PM EDT 05/18/2024 8:06 PM EDT Saba Spears MD POINT OF CARE TEST ORDERABLES Performing Organization Address City/[facility]/ZIP Co de Phone Number [facility] [place] [address] * POC, GLUCOSE (05/18/2024 6:14 PM EDT) Glucometer, POC 174 65 - 199 mg/dL 05/18/2024 6:15 PM EDT [facility] Comment:Supplemental ranges: <140 mg/dL before meals <180 mg/dL all other times of the day. Blood CAPILLARY BLOOD / Unknown 05/18/2024 6:14 PM EDT 05/18/2024 6:15 PM EDT Saba Spears MD POINT OF CARE TEST ORDERABLES Performing Organization Address City/[facility]/ZIP Co de Phone Number [facility] [place] [address] * (ABNORMAL) Basic Metabolic Panel (05/18/2024 5:04 PM EDT) Glucose 170 65 - 199 mg/dL 05/18/2024 6:14 PM [facility] Comment:Glucose Concentratio n >=200 mg/dL plus symptoms is consistent with Diabetes Mellitus. Blood Urea Nitrogen 116(H) 10 - 20 mg/dL 05/18/2024 6:14 PM [facility] Creatinine 2.64(H) 0.80 - 1.50 mg/dL 05/18/2024 6:14 PM [facility] Sodium 139 135 - 145 mMol/L 05/18/2024 6:14 PM [facility] Potassium 5.4(H) 3.5 - 5.0 mMol/L 05/18/2024 6:14 PM [facility] Chloride 110(H) 98 - 107 mMol/L 05/18/2024 6:14 PM [facility] Carbon Dioxide 17(L) 22 - 31 mMol/L 05/18/2024 6:14 PM [facility] Anion Gap 12 5 - 15 mMol/L 05/18/2024 6:14 PM [facility] Calcium 9.2 8.5 - 10.5 mg/dL 05/18/2024 6:14 PM [facility] Est Glomerular Filtration Rate - Male 25 mL/min/1. 73 m?? 05/18/2024 6:14 PM [facility] Comment: This patient's estimated GFR [...] Fasting Status No 05/18/2024 6:14 PM EDT [facility] Blood VENOUS BLOOD SPECIMEN / Unknown IP Care Team Draw / Unknown 05/18/2024 5:04 PM EDT 05/18/2024 5:11 PM EDT Saba Spears MD CHEMISTRY ORDERABLE S Performing Organization Address [facility]/ZIP Co de Phone Number [facility] [place] [address] * (ABNORMAL) POC, GLUCOSE (05/18/2024 11:45 AM EDT) Glucometer, POC 211(H) 65 - 199 mg/dL 05/18/2024 11:45 AM EDT [facility] Comment:Supplemental ranges: <140 mg/dL before meals <180 mg/dL all other times of the day. Blood CAPILLARY BLOOD / Unknown 05/18/2024 11:45 AM EDT 05/18/2024 11:45 AM EDT Saba Spears MD POINT OF CARE TEST ORDERABLES Performing Organization Address [facility] [[email or web address]] Co de Phone Number [facility] [place] [address] * C diff Screen (05/18/2024 11:31 AM EDT) C Diff Interp Negative Negative 05/18/2024 3:02 PM EDT [facility] Comment:Clostridioides diffi cile is not present in the specimen. If patient is having diarrhea suspected to be from an infectious cause, then Soap & Water Contact Precautions are still required. If patient is having diarrhea with no suspected infectious cause use standard precautions. C Diff PCR Negative Negative, Indeterminate 05/18/2024 3:02 PM EDT [facility] Stool STOOL SPECIMEN / Unknown Non Blood Collection / Unknown 05/18/2024 11:31 AM EDT 05/18/2024 12:09 PM EDT Saba Spears MD MICROBIOLOGY - GENE RAL ORDERABLES Performing Organization Address City/[facility]/ZIP Co de Phone Number [facility] [place] [address] * C Diff PCR (05/18/2024 11:31 AM EDT) Stool STOOL SPECIMEN / Unknown Non Blood Collection / Unknown 05/18/2024 11:31 AM EDT 05/18/2024 12:09 PM EDT Saba Spears MD MICROBIOLOGY - GENE RAL ORDERABLES Performing Organization Address City/[facility]/ZIP Co de Phone Number [facility] [place] [address] * Creatinine, urine, random (05/18/2024 8:57 AM EDT) Creatinine, Urine 44 mg/dL 05/18/2024 9:36 AM EDT [facility] Urine URINE SPECIMEN / Unknown Non Blood Collection / Unknown 05/18/2024 8:57 AM EDT 05/18/2024 9:07 AM EDT Saba Spears MD URINE ORDERABLES Performing Organization Address [facility] de Phone Number [facility] [place] [address] * Electrolytes, urine, random (05/18/2024 8:57 AM EDT) Sodium, Urine 50 mMol/L 05/18/2024 12:09 PM EDT [facility] Potassium, Urine 13 mMol/L 05/18/2024 12:09 PM EDT [facility] Chloride, Urine 35 mMol/L 05/18/2024 12:09 PM EDT [facility] Urine URINE SPECIMEN / Unknown Non Blood Collection / Unknown 05/18/2024 8:57 AM EDT 05/18/2024 9:07 AM EDT Saba Spears MD URINE ORDERABLES Performing Organization Address City/[facility]/ZIP Co de Phone Number [facility] [place] [address] * POC, GLUCOSE (05/18/2024 8:34 AM EDT) Glucometer, POC 182 65 - 199 mg/dL 05/18/2024 8:35 AM EDT [facility] Comment:Supplemental ranges: <140 mg/dL before meals <180 mg/dL all other times of the day. Blood CAPILLARY BLOOD / Unknown 05/18/2024 8:34 AM EDT 05/18/2024 8:35 AM EDT Saba Spears MD POINT OF CARE TEST ORDERABLES Performing Organization Address [facility] [[email or web address]] Co de Phone Number [facility] [place] [address] * POC, GLUCOSE (05/18/2024 4:10 AM EDT) Glucometer, POC 163 65 - 199 mg/dL 05/18/2024 4:10 AM EDT [facility] Comment:Supplemental ranges: <140 mg/dL before meals <180 mg/dL all other times of the day. Blood CAPILLARY BLOOD / Unknown 05/18/2024 4:10 AM EDT 05/18/2024 4:11 AM EDT Saba Spears MD POINT OF CARE TEST ORDERABLES Performing Organization Address City/[facility]/ZIP Co de Phone Number [facility] [place] [address] * (ABNORMAL) CBC (with Diff) (05/18/2024 4:01 AM EDT) White Blood Cell 9.84(H) 4.00 - 9.50 x10(3)/mc L 05/18/2024 4:19 AM EDT [facility] Red Blood Cell 3.24(L) 4.58 - 5.54 x10(6)/mc L 05/18/2024 4:19 AM [facility] Hemoglobin 9.6(L) 13.7 - 16.5 g/dL 05/18/2024 4:19 AM [facility] Hematocrit 31.4(L) 40.5 - 48.5 % 05/18/2024 4:19 AM [facility] Mean Cell Volume 96.9(H) 82.9 - 93.1 fL 05/18/2024 4:19 AM [facility] Mean Cell Hemoglobin 29.6 27.5 - 32.1 pg 05/18/2024 4:19 AM [facility] Mean Cell Hemoglobin Concentration 30.6(L) 32.0 - 35.7 g/dL 05/18/2024 4:19 AM [facility] Platelet 335 145 - 357 x10(3)/mc L 05/18/2024 4:19 AM [facility] Mean Platelet Volume 10.3 7.6 - 12.9 fL 05/18/2024 4:19 AM [facility] RDW Standard Deviation 56.4(H) 36.0 - 45.0 fL 05/18/2024 4:19 AM [facility] RDW coefficient of variation 15.7(H) 11.4 - 13.8 % 05/18/2024 4:19 AM [facility] NRBC% auto 0.2 % 05/18/2024 4:19 AM [facility] NRBC Absolute 0.02(H) 0.00 - 0.00 x10(3)/mc L 05/18/2024 4:19 AM [facility] Neutrophil % 76.5 % 05/18/2024 4:19 AM [facility] Neutrophil Absolute 7.52(H) 1.70 - 6.10 x10(3)/mc L 05/18/2024 4:19 AM [facility] Lymph % 8.0 % 05/18/2024 4:19 AM [facility] Lymph Absolute 0.79(L) 0.90 - 3.20 x10(3)/mc L 05/18/2024 4:19 AM EDT [facility] Monocyte % 12.5 % 05/18/2024 4:19 AM EDT [facility] Monocyte Absolute 1.23(H) 0.30 - 0.90 x10(3)/mc L 05/18/2024 4:19 AM EDT [facility] Eos % 1.9 % 05/18/2024 4:19 AM EDT [facility] Eos Absolute 0.19 0.00 - 0.40 x10(3)/mc L 05/18/2024 4:19 AM EDT [facility] Basophil % 0.2 % 05/18/2024 4:19 AM EDT [facility] Baso Absolute 0.02 0.00 - 0.10 x10(3)/mc L 05/18/2024 4:19 AM EDT [facility] Immature Gran % 0.9 % 4:19 AM EDT [facility] Immature Gran Absolute 0.09(H) 0.00 - 0.04 x10(3)/mc L 05/18/2024 4:19 AM EDT [facility] Blood VENOUS BLOOD SPECIMEN / Unknown IP Care Team Draw / Unknown 05/18/2024 4:01 AM EDT 05/18/2024 4:13 AM EDT Mary De La Fuente MD HEMATOLOGY ORDERAB LES [facility] [place] [address] * (ABNORMAL) Magnesium (05/18/2024 4:00 AM EDT) Magnesium 1.09(H) 0.69 - 1.07 mMol/L 05/18/2024 10:11 AM EDT [facility] Blood VENOUS BLOOD SPECIMEN / Unknown IP Care Team Draw / Unknown 05/18/2024 4:00 AM EDT 05/18/2024 4:13 AM EDT Mary De La Fuente MD CHEMISTRY ORDERABL ES Performing Organization Address [facility] [[email or web address]] Co de Phone Number [facility] [place] [address] * (ABNORMAL) Phosphorus (05/18/2024 4:00 AM EDT) Phosphorus 4.7(H) 2.5 - 4.5 mg/dL 05/18/2024 10:11 AM EDT [facility] Blood VENOUS BLOOD SPECIMEN / Unknown IP Care Team Draw / Unknown 05/18/2024 4:00 AM EDT 05/18/2024 4:13 AM EDT Mary De La Fuente MD CHEMISTRY ORDERABL ES Performing Organization Address [facility] [[email or web address]] Co de Phone Number [facility] [place] [address] * (ABNORMAL) Basic Metabolic Panel (non-fasting) (05/18/2024 4:00 AM EDT) Glucose 144 65 - 199 mg/dL 05/18/2024 10:11 AM EDT [facility] Comment:Glucose Concentratio n >=200 mg/dL plus symptoms is consistent with Diabetes Mellitus. Blood Urea Nitrogen 105(H) 10 - 20 mg/dL 05/18/2024 10:11 AM EDT [facility] Creatinine 2.69(H) 0.80 - 1.50 mg/dL 05/18/2024 10:11 AM EDT [facility] Sodium 134(L) 135 - 145 mMol/L 05/18/2024 10:11 AM EDT [facility] Potassium 5.6(H) 3.5 - 5.0 mMol/L 05/18/2024 10:11 AM EDT [facility] Chloride 107 98 - 107 mMol/L 05/18/2024 10:11 AM EDT [facility] Carbon Dioxide 11(L) 22 - 31 mMol/L 05/18/2024 10:11 AM EDT [facility] Anion Gap 16(H) 5 - 15 mMol/L 05/18/2024 10:11 AM EDT [facility] Calcium 8.8 8.5 - 10.5 mg/dL 05/18/2024 10:11 AM EDT [facility] Est Glomerular Filtration Rate - Male 25 mL/min/1. 73 m?? 05/18/2024 10:11 AM EDT [facility] Comment: This patient's estimated GFR [...] Fasting Status No 05/18/2024 10:11 AM EDT [facility] Blood VENOUS BLOOD SPECIMEN / Unknown IP Care Team Draw / Unknown 05/18/2024 4:00 AM EDT 05/18/2024 4:13 AM EDT Mary De La Fuente MD CHEMISTRY ORDERABL ES [facility] [place] [address] * (ABNORMAL) POC, GLUCOSE (05/17/2024 11:30 PM EDT) [facility] Signature Glucometer, POC 232(H) 65 - 199 mg/dL 05/17/2024 11:30 PM EDT [facility] Comment:Supplemental ranges: <140 mg/dL before meals <180 mg/dL all other times of the day. Blood CAPILLARY BLOOD / Unknown 05/17/2024 11:30 PM EDT 05/17/2024 11:30 PM EDT Saba Spears MD POINT OF CARE TEST ORDERABLES Performing Organization Address City/[facility] [[email or web address]] Co de Phone Number [facility] [place] [address] * POC, GLUCOSE (05/17/2024 8:12 PM EDT) Glucometer, POC 161 65 - 199 mg/dL 05/17/2024 8:12 PM EDT [facility] Comment:Supplemental ranges: <140 mg/dL before meals <180 mg/dL all other times of the day. Blood CAPILLARY BLOOD / Unknown 05/17/2024 8:12 PM EDT 05/17/2024 8:13 PM EDT Saba Spears MD POINT OF CARE TEST ORDERABLES Performing Organization Address [facility] [[email or web address]] Co de Phone Number [facility] [place] [address] * POC, GLUCOSE (05/17/2024 5:35 PM EDT) Glucometer, POC 167 65 - 199 mg/dL 05/17/2024 5:35 PM EDT [facility] Comment:Supplemental ranges: <140 mg/dL before meals <180 mg/dL all other times of the day. Blood CAPILLARY BLOOD / Unknown 05/17/2024 5:35 PM EDT 05/17/2024 5:35 PM EDT Saba Spears MD POINT OF CARE TEST ORDERABLES Performing Organization Address City/[facility]/ZIP Co de Phone Number [facility] [place] [address] * POC, GLUCOSE (05/17/2024 12:50 PM EDT) Glucometer, POC 147 65 - 199 mg/dL 05/17/2024 12:50 PM EDT [facility] Comment:Supplemental ranges: <140 mg/dL before meals <180 mg/dL all other times of the day. Blood CAPILLARY BLOOD / Unknown 05/17/2024 12:50 PM EDT 05/17/2024 12:50 PM EDT Saba Spears MD POINT OF CARE TEST ORDERABLES Performing Organization Address City/[facility]/ZIP Co de Phone Number [facility] [place] [address] * POC, GLUCOSE (05/17/2024 8:20 AM EDT) Glucometer, POC 139 65 - 199 mg/dL 05/17/2024 8:21 AM EDT [facility] Comment:Supplemental ranges: <140 mg/dL before meals <180 mg/dL all other times of the day. Blood CAPILLARY BLOOD / Unknown 05/17/2024 8:20 AM EDT 05/17/2024 8:21 AM EDT Treva Diaz MD POINT OF CARE TEST ORDERABLES Performing Organization Address City/[facility]/ZIP Co de Phone Number [facility] [place] [address] * (ABNORMAL) Magnesium (05/17/2024 5:49 AM EDT) Magnesium 1.14(H) 0.69 - 1.07 mMol/L 05/17/2024 6:58 AM EDT [facility] Blood IP Care Team w / Unknown 05/17/2024 5:49 AM EDT 05/17/2024 6:13 AM EDT Mary De La Fuente MD CHEMISTRY ORDERABL ES Performing Organization Address City/[facility]/ZIP Co de Phone Number [facility] [place] [address] * (ABNORMAL) Phosphorus (05/17/2024 5:49 AM EDT) Phosphorus 5.6(H) 2.5 - 4.5 mg/dL 05/17/2024 6:58 AM EDT [facility] Blood IP Care Team w / Nick 05/17/2024 5:49 AM EDT 05/17/2024 6:13 AM EDT Mary De La Fuente MD CHEMISTRY ORDERABL ES [facility] [place] [address] * (ABNORMAL) Basic Metabolic Panel (non-fasting) (05/17/2024 5:49 AM EDT) Glucose 131 65 - 199 mg/dL 05/17/2024 6:58 AM EDT [facility] Comment:Glucose Concentratio n >=200 mg/dL plus symptoms is consistent with Diabetes Mellitus. Blood Urea Nitrogen 86(H) 10 - 20 mg/dL 05/17/2024 6:58 AM T [facility] Creatinine 3.07(H) 0.80 - 1.50 mg/dL 05/17/2024 6:58 AM [facility] Sodium 134(L) 135 - 145 mMol/L 05/17/2024 6:58 AM [facility] Potassium 5.0 3.5 - 5.0 mMol/L 05/17/2024 6:58 AM [facility] Chloride 103 98 - 107 mMol/L 05/17/2024 6:58 AM [facility] Carbon Dioxide 21(L) 22 - 31 mMol/L 05/17/2024 6:58 [facility] Anion Gap 10 5 - 15 mMol/L 05/17/2024 6:58 AM [facility] Calcium 8.7 8.5 - 10.5 mg/dL 05/17/2024 6:58 AM [facility] Est Glomerular Filtration Rate - Male 21 mL/min/1. 73 m?? 05/17/2024 6:58 AM [facility] Comment: This patient's estimated GFR [...] Foundation Fasting Status No 05/17/2024 6:58 AM T [facility] Blood IP Care Team w / Nick 05/17/2024 5:49 AM EDT 05/17/2024 6:13 AM EDT Mary De La Fuente MD CHEMISTRY ORDERABL ES Performing Organization Address City/State/[facility] [[email or web address]] Co de Phone Number [facility] [place] [address] * (ABNORMAL) CBC (with Diff) (05/17/2024 5:49 AM EDT) White Blood Cell 8.61 4.00 - 9.50 x10(3)/mc L 05/17/2024 6:28 AM EDT [facility] Red Blood Cell 3.54(L) 4.58 - 5.54 x10(6)/mc L 05/17/2024 6:28 AM EDT [facility] Hemoglobin 10.5(L) 13.7 - 16.5 g/dL 05/17/2024 6:28 [facility] Hematocrit 33.9(L) 40.5 - 48.5 % 05/17/2024 6:28 [facility] Mean Cell Volume 95.8(H) 82.9 - 93.1 fL 05/17/2024 6:28 [facility] Mean Cell Hemoglobin 29.7 27.5 - 32.1 pg 05/17/2024 6:28 AM [facility] Mean Cell Hemoglobin Concentration 31.0(L) 32.0 - 35.7 g/dL 05/17/2024 6:28 AM [facility] Platelet 341 145 - 357 x10(3)/mc L 05/17/2024 6:28 AM [facility] Mean Platelet Volume 10.4 7.6 - 12.9 fL 05/17/2024 6:28 AM [facility] RDW Standard Deviation 56.5(H) 36.0 - 45.0 fL 05/17/2024 6:28 AM [facility] RDW coefficient of variation 15.7(H) 11.4 - 13.8 % 05/17/2024 6:28 AM [facility] NRBC% auto 0.0 % 05/17/2024 6:28 AM [facility] NRBC Absolute 0.00 0.00 - 0.00 x10(3)/mc L 05/17/2024 6:28 AM [facility] Neutrophil % 76.3 % 05/17/2024 6:28 AM [facility] Neutrophil Absolute 6.57(H) 1.70 - 6.10 x10(3)/mc L 05/17/2024 6:28 AM [facility] Lymph % 9.9 % 05/17/2024 6:28 AM [facility] Lymph Absolute 0.85(L) 0.90 - 3.20 x10(3)/mc L 05/17/2024 6:28 AM [facility] Monocyte % 11.7 % 05/17/2024 6:28 AM [facility] Monocyte Absolute 1.01(H) 0.30 - 0.90 x10(3)/mc L 05/17/2024 6:28 AM [facility] [facility] Eos % 0.8 % 05/17/2024 6:28 AM [facility] Eos Absolute 0.07 0.00 - 0.40 x10(3)/mc L 05/17/2024 6:28 AM EDT [facility] Basophil % 0.1 % 05/17/2024 6:28 AM EDT [facility] Baso Absolute 0.01 0.00 - 0.10 x10(3)/mc L 05/17/2024 6:28 AM EDT [facility] Immature Gran % 1.2 % 6:28 AM EDT [facility] Immature Gran Absolute 0.10(H) 0.00 - 0.04 x10(3)/mc L 05/17/2024 6:28 AM EDT [facility] Blood IP Care Team Gia w / Unknown 05/17/2024 5:49 AM EDT 05/17/2024 6:13 AM EDT Mary De La Fuente MD HEMATOLOGY ORDERAB LES Performing Organization Address City/[facility]/ZIP Co de Phone Number [facility] [place] [address] * Vancomycin Level, Random (05/17/2024 5:49 AM EDT) [facility] Vancomycin, Random 22.4 mg/L 2023 6:58 AM EDT [facility] Comment:This level is for de termination of the patient's vancomycin isvk-saqqe-vru-curve (AUC) value. Contact the inpatient pharmacy for interpretation. Blood IP Care Team Gia w / Unknown 05/17/2024 5:49 AM EDT 05/17/2024 6:13 AM EDT Treva Diaz MD CHEMISTRY ORDERABL ES Performing Organization Address [facility] [[email or web address]] Co de Phone Number [facility] [place] [address] * POC, GLUCOSE (05/17/2024 3:54 AM EDT) Glucometer, POC 135 65 - 199 mg/dL 05/17/2024 3:55 AM EDT [facility] Comment:Supplemental ranges: <140 mg/dL before meals <180 mg/dL all other times of the day. Blood CAPILLARY BLOOD / Unknown 05/17/2024 3:54 AM EDT 05/17/2024 3:55 AM EDT Treva Diaz MD POINT OF CARE TEST ORDERABLES [facility] [place] [address] * POCT Glucose (05/16/2024 11:46 PM EDT) Glucose, POC 148 65 - 199 mg/dL [facility] Comment: Supplemental ranges: <140 mg/dL before meals <180 mg/dL all other times of the day Blood 05/16/2024 11:4 6 PM EDT 05/16/2024 11:46 PM EDT Treva Daiz MD POINT OF CARE TEST ORDERABLES Performing Organization Address City/[facility]/ZIP Co de Phone Number [facility] [place] [address] * POCT Glucose (05/16/2024 9:06 PM EDT) Glucose, POC 191 65 - 199 mg/dL [facility] Comment: Supplemental ranges: <140 mg/dL before meals <180 mg/dL all other times of the day Blood 05/16/2024 9:06 PM EDT 05/16/2024 9:06 PM EDT Treva Diaz MD POINT OF CARE TEST ORDERABLES [facility] [place] [address] * POCT Glucose (05/16/2024 8:04 PM EDT) Glucose, POC 199 65 - 199 mg/dL [facility] Comment: Supplemental ranges: <140 mg/dL before meals <180 mg/dL all other times of the day Blood 05/16/2024 8:04 PM EDT 05/16/2024 8:04 PM EDT Treva Diaz MD POINT OF CARE TEST ORDERABLES [facility] [place] [address] * POCT Glucose (05/16/2024 4:51 PM EDT) Glucose, POC 162 65 - 199 mg/dL [facility] Comment: Supplemental ranges: <140 mg/dL before meals <180 mg/dL all other times of the day Blood 05/16/2024 4:51 PM EDT 05/16/2024 4:51 PM EDT Treva Diaz MD POINT OF CARE TEST ORDERABLES [facility] [place] [address] * POCT Glucose (05/16/2024 12:48 PM EDT) Glucose, POC 153 65 - 199 mg/dL [facility] Comment: Supplemental ranges: <140 mg/dL before meals <180 mg/dL all other times of the day Blood 05/16/2024 12:4 8 PM EDT 05/16/2024 12:48 PM EDT Treva Diaz MD POINT OF CARE TEST ORDERABLES [facility] [place] [address] * POCT Glucose (05/16/2024 8:45 AM EDT) Glucose, POC 165 65 - 199 mg/dL [facility] Comment: Supplemental ranges: <140 mg/dL before meals <180 mg/dL all other times of the day Blood 05/16/2024 8:45 AM EDT 05/16/2024 8:45 AM EDT Treva Diaz MD POINT OF CARE TEST ORDERABLES Performing Organization Address City/State/[facility] [[email or web address]] Co de Phone Number [facility] [place] [address] * (ABNORMAL) Differential, Automated (05/16/2024 5:14 AM EDT) Neutrophil % 79.4 % [facility] Neutrophil Absolute 9.22(H) 1.70 - 6.10 x10(3)/mc L [facility] Lymph % 6.6 % [facility] Lymphocytes Abs 0.8(L) 0.9 - 3.2 x10(3)/mc L [facility] Monocyte % 9.5 % [facility] Monocyte Abs 1.1(H) 0.3 - 0.9 x10(3)/mc L [facility] Eos % 0.0 % [facility] Eosinophils Abs 0.0 0.0 - 0.4 x10(3)/mc L [facility] Basophil % 0.2 % [facility] Baso Absolute 0.0 0.0 - 0.1 x10(3)/mc L [facility] Immature Gran % 4.30 % [facility] Comment: Immature granulocytes(IG's)percentage and absolute count will include metamyelocytes, myelocytes, and promyelocytes. Blood smears from CBCs yielding IG's will be scanned manually for concordance. If this scan disagrees with the automated IG or if promyelocytes are noted, a manual differential will be performed. Immature Gran Absolute 0.50(H) 0.00 - 0.04 x10(3)/mc L [facility] Blood 05/16/2024 5:14 AM EDT 05/16/2024 5:38 AM EDT Narrative Resulting Agency Comment Spec In Lab Carlotta Davis MD HEMATOLOGY OR DERABLES [facility] [place] [address] * (ABNORMAL) Hemogram (05/16/2024 5:14 AM EDT) White Blood Cell 11.6(H) 4.0 - 9.5 x10(3)/mc L [facility] Red Blood Cell 3.59(L) 4.58 - 5.54 x10(6)/mc L [facility] Hemoglobin 10.5(L) 13.7 - 16.5 g/dL [facility] Hematocrit 33.8(L) 40.5 - 48.5 % [facility] Mean Cell Volume 94.2(H) 82.9 - 93.1 fL [facility] Mean Cell Hemoglobin 29.2 27.5 - 32.1 pg [facility] Mean Cell Hemoglobin Concentration 31.1(L) 32.0 - 35.7 g/dL [facility] Platelet 317 145 - 357 x10(3)/mc L [facility] RDW Standard Deviation 55.1(H) 36.0 - 45.0 fL [facility] RDW coefficient of variation 15.9(H) 11.4 - 13.8 % [facility] Mean Platelet Volume 10.6 7.6 - 12.9 fL [facility] NRBC% auto 0.0 % [facility] NRBC Absolute 0.000 0.000 - 0.000 x10(3)/ L [facility] Blood 05/16/2024 5:14 AM EDT 05/16/2024 5:38 AM EDT Narrative Resulting Agency Comment Spec In Lab Carlotta Davis MD HEMATOLOGY OR DERABLES Performing Organization Address [facility] [[email or web address]] Co de Phone Number [facility] [place] [address] * (ABNORMAL) Magnesium (05/16/2024 5:14 AM EDT) Magnesium 1.22(H) 0.69 - 1.07 mmol/L [facility] Blood 05/16/2024 5:14 AM EDT 05/16/2024 5:38 AM EDT Narrative Resulting Agency Comment Spec In Lab Mary De La Fuente MD CHEMISTRY ORDERABL ES Performing Organization Address [facility] de Phone Number [facility] [place] [address] * (ABNORMAL) Phosphorus (05/16/2024 5:14 AM EDT) Phosphorus 6.3(H) 2.5 - 4.5 mg/dL [facility] Blood 05/16/2024 5:14 AM EDT 05/16/2024 5:38 AM EDT Narrative Resulting Agency Comment Spec In Lab Mary De La Fuente MD CHEMISTRY ORDERABL ES Performing Organization Address [facility] [[email or web address]] Co de Phone Number [facility] [place] [address] * (ABNORMAL) Basic Metabolic Panel (non-fasting) (05/16/2024 5:14 AM EDT) Glucose 154 65 - 199 mg/dL [facility] Comment:Diabetes: >=200 mg/d L plus symptoms Blood Urea Nitrogen 74(H) 10 - 20 mg/dL [facility] Creatinine 2.88(H) 0.80 - 1.50 mg/dL [facility] Sodium 133(L) 135 - 145 mmol/L [facility] Potassium 5.0 3.5 - 5.0 mmol/L [facility] Comment: Please note: ??Patients with WBC >100,000 may have falsely elevated Potassium levels. ??For accurate Potassium quantification in these patients send serum separator tube (gold top) for subsequent determinations. ??Contact the Clinical Chemistry Laboratory if there are any questions. Chloride 101 98 - 107 mmol/L [facility] Carbon Dioxide 21(L) 22 - 31 mmol/L [facility] Anion Gap 11 5 - 15 mmol/L [facility] Calcium 8.8 8.5 - 10.5 mg/dL [facility] Est Glomerular Filtration Rate 23(L) >=60 mL/min/1. 73 m?? [facility] Comment: This patient's estimated GFR [...] De La Fuente MD CHEMISTRY ORDERABL ES [facility] [place] [address] * Vancomycin Level, Random (05/16/2024 5:14 AM EDT) Vancomycin, Random 29.1 mg/L M [facility] Comment: This level is for determination of the patient's vancomycin yxfb-nmfab-uio-curve (AUC) value. Contact the inpatient pharmacy for interpretation. Blood 05/16/2024 5:14 AM EDT 05/16/2024 5:38 AM EDT Treva Diaz MD CHEMISTRY ORDERABL ES Performing Organization Address City/[facility]/ZIP Co de Phone Number [facility] [place] [address] * POCT Glucose (05/16/2024 3:53 AM EDT) Glucose, POC 166 65 - 199 mg/dL [facility] Comment: Supplemental ranges: <140 mg/dL before meals <180 mg/dL all other times of the day Blood 05/16/2024 3:53 AM EDT 05/16/2024 3:53 AM EDT Treva Diaz MD POINT OF CARE TEST ORDERABLES Performing Organization Address [facility] [[email or web address]] Co de Phone Number [facility] [place] [address] * POCT Glucose (05/15/2024 11:41 PM EDT) Glucose, POC 171 65 - 199 mg/dL [facility] Comment: Supplemental ranges: <140 mg/dL before meals <180 mg/dL all other times of the day Blood 05/15/2024 11:4 1 PM EDT 05/15/2024 11:41 PM EDT Treva Diaz MD POINT OF CARE TEST ORDERABLES Performing Organization Address City/[facility]/ZIP Co de Phone Number [facility] [place] [address] * POCT Glucose (05/15/2024 10:32 PM EDT) Glucose, POC 183 65 - 199 mg/dL [facility] Comment: Supplemental ranges: <140 mg/dL before meals <180 mg/dL all other times of the day Blood 05/15/2024 10:3 2 PM EDT 05/15/2024 10:32 PM EDT Treva Diaz MD POINT OF CARE TEST ORDERABLES [facility] [place] [address] * POCT Glucose (05/15/2024 7:53 PM EDT) Pathologist [facility] Glucose, POC 187 65 - 199 mg/dL [facility] Comment: Supplemental ranges: <140 mg/dL before meals <180 mg/dL all other times of the day Blood 05/15/2024 7:53 PM EDT 05/15/2024 7:53 PM EDT Treva Diaz MD POINT OF CARE TEST ORDERABLES Performing Organization Address City/[facility]/ZIP Co de Phone Number [facility] [place] [address] * [place] PCR Screen [place] (05/15/2024 4:15 PM EDT) [facility] MRSA PCR Negative Negative [facility] MRSA (Interp) Methicillin-resist ant Staphylococcus aureus (MRSA) is NOT DETECTED The MRSA target DNA sequences (mec and SCC) were not detected within the acceptable ranges using the Xpert MRSA NxG on the GeneXpert Dx System ([employer]). This suggests the absence of MRSA in the patient specimen submitted for testing. This test is cleared by the U.S. Food and Drug Administration for clinical use and its performance characteristics have been verified by the [facility] at [facility]. This result does not rule out the presence of any other organisms. Rare false negative results may occur if MRSA is present at low concentrations with much higher concentrations of other organisms including MRSE or S. aureus with an empty SCC cassette. [facility] Comment: [VERIFIED DATE]05.15.24 Verified By:Lupe Jensen (Electronic Signature) Nasopharyngeal Swab 05/15/20 4:15 PM EDT 05/15/2024 6:28 PM EDT Comment:Specimen Type->Nasop haryngeal Swab Narrative Resulting Agency Comment Spec In Lab Treva Diaz MD MOLECULAR ORDERABL ES Performing Organization Address [facility]/ZIP Co de Phone Number [facility] [place] [address] * (ABNORMAL) POCT Glucose (05/15/2024 3:20 PM EDT) Glucose, POC 224(H) 65 - 199 mg/dL [facility] Comment: Supplemental ranges: <140 mg/dL before meals <180 mg/dL all other times of the day Blood 05/15/2024 3:20 PM EDT 05/15/2024 3:20 PM EDT Treva Diaz MD POINT OF CARE TEST ORDERABLES Performing Organization Address [facility] [[email or web address]] Co de Phone Number [facility] [place] [address] * (ABNORMAL) POCT Glucose (05/15/2024 11:39 AM EDT) Glucose, POC 213(H) 65 - 199 mg/dL [facility] Comment: Supplemental ranges: <140 mg/dL before meals <180 mg/dL all other times of the day Blood 05/15/2024 11:3 9 AM EDT 05/15/2024 11:39 AM EDT Treva Diaz MD POINT OF CARE TEST ORDERABLES Performing Organization Address [facility] [[email or web address]] Co de Phone Number [facility] [place] [address] * POCT Glucose (05/15/2024 8:02 AM EDT) Glucose, POC 190 65 - 199 mg/dL [facility] Comment: Supplemental ranges: <140 mg/dL before meals <180 mg/dL all other times of the day Blood 05/15/2024 8:02 AM EDT 05/15/2024 8:02 AM EDT Treva Diaz MD POINT OF CARE TEST ORDERABLES [facility] [place] [address] * (ABNORMAL) Differential, Automated (05/15/2024 5:12 AM EDT) Neutrophil % 85.3 % [facility] Neutrophil Absolute 11.37(H) 1.70 - 6.10 x10(3)/mc L [facility] Lymph % 3.7 % [facility] Lymphocytes Abs 0.5(L) 0.9 - 3.2 x10(3)/ L [facility] Monocyte % 9.1 % [facility] Monocyte Abs 1.2(H) 0.3 - 0.9 x10(3)/ L [facility] Eos % 0.0 % [facility] Eosinophils Abs 0.0 0.0 - 0.4 x10(3)/ L [facility] Basophil % 0.1 % [facility] Baso Absolute 0.0 0.0 - 0.1 x10(3)/[facility] Immature Gran % 1.80 % [facility] Comment: Immature granulocytes(IG's)percentage and absolute count will include metamyelocytes, myelocytes, and promyelocytes. Blood smears from CBCs yielding IG's will be scanned manually for concordance. If this scan disagrees with the automated IG or if promyelocytes are noted, a manual differential will be performed. Immature Gran Absolute 0.24(H) 0.00 - 0.04 x10(3)/ L [facility] Blood 05/15/2024 5:12 AM EDT 05/15/2024 5:38 AM EDT Narrative Resulting Agency Comment Spec In Lab Carlotta Davis MD HEMATOLOGY OR DERABLES [facility] [place] [address] * (ABNORMAL) Hemogram (05/15/2024 5:12 AM EDT) White Blood Cell 13.4(H) 4.0 - 9.5 x10(3)/mc L [facility] Red Blood Cell 3.58(L) 4.58 - 5.54 x10(6)/ L [facility] Hemoglobin 10.9(L) 13.7 - 16.5 g/dL [facility] Hematocrit 34.1(L) 40.5 - 48.5 % [facility] Mean Cell Volume 95.3(H) 82.9 - 93.1 fL [facility] Mean Cell Hemoglobin 30.4 27.5 - 32.1 pg [facility] Mean Cell Hemoglobin Concentration 32.0 32.0 - 35.7 g/dL [facility] Platelet 227 145 - 357 x10(3)/ L [facility] RDW Standard Deviation 55.8(H) 36.0 - 45.0 [facility] RDW coefficient of variation 15.8(H) 11.4 - 13.8 % [facility] Mean Platelet Volume 10.7 7.6 - 12.9 fL [facility] NRBC% auto 0.0 % [facility] NRBC Absolute 0.000 0.000 - 0.000 x10(3)/[facility] Blood 05/15/2024 5:12 AM EDT 05/15/2024 5:38 AM EDT Narrative Resulting Agency Comment Spec In Lab Carlotta Davis MD HEMATOLOGY OR DERABLES [facility] [place] [address] * (ABNORMAL) Magnesium (05/15/2024 5:12 AM EDT) Magnesium 1.21(H) 0.69 - 1.07 mmol/L [facility] Blood 05/15/2024 5:12 AM EDT 05/15/2024 5:38 AM EDT Narrative Resulting Agency Comment Spec In Lab Mary De La Fuente MD CHEMISTRY ORDERABL ES Performing Organization Address [facility]/ZIP Co de Phone Number [facility] [place] [address] * (ABNORMAL) Phosphorus (05/15/2024 5:12 AM EDT) Phosphorus 6.5(H) 2.5 - 4.5 mg/dL [facility] Comment:result rechecked-HN Blood 05/15/2024 5:12 AM EDT 05/15/2024 5:38 AM EDT Narrative Resulting Agency Comment Spec In Lab Mary De La Fuente MD CHEMISTRY ORDERABL ES Performing Organization Address [facility] [[email or web address]] Co de Phone Number [facility] [place] [address] * (ABNORMAL) Basic Metabolic Panel (non-fasting) (05/15/2024 5:12 AM EDT) Glucose 217(H) 65 - 199 mg/dL [facility] Comment:Diabetes: >=200 mg/d L plus symptoms Blood Urea Nitrogen 58(H) 10 - 20 mg/dL [facility] Creatinine 2.46(H) 0.80 - 1.50 mg/dL [facility] Comment:result rechecked-HN Sodium 135 135 - 145 mmol/L [facility] Potassium 5.2(H) 3.5 - 5.0 mmol/L [facility] Comment: Please note: ??Patients with WBC >100,000 may have falsely elevated Potassium levels. ??For accurate Potassium quantification in these patients send serum separator tube (gold top) for subsequent determinations. ??Contact the Clinical Chemistry Laboratory if there are any questions. Chloride 100 98 - 107 mmol/L [facility] Carbon Dioxide 23 22 - 31 mmol/L [facility] Anion Gap 12 5 - 15 mmol/L [facility] Calcium 8.8 8.5 - 10.5 mg/dL [facility] Est Glomerular Filtration Rate 27(L) >=60 mL/min/1. 73 m?? [facility] Comment: This patient's estimated GFR [...] De La Fuente MD CHEMISTRY ORDERABL ES [facility] [place] [address] * (ABNORMAL) POCT Glucose (05/15/2024 4:55 AM EDT) Glucose, POC 223(H) 65 - 199 mg/dL [facility] Comment: Supplemental ranges: <140 mg/dL before meals <180 mg/dL all other times of the day Blood 05/15/2024 4:55 AM EDT 05/15/2024 4:55 AM EDT Treva Diaz MD POINT OF CARE TEST ORDERABLES [facility] [place] [address] * (ABNORMAL) POCT Glucose (05/15/2024 2:51 AM EDT) Glucose, POC 279(H) 65 - 199 mg/dL [facility] Comment: Supplemental ranges: <140 mg/dL before meals <180 mg/dL all other times of the day Blood 05/15/2024 2:51 AM EDT 05/15/2024 2:51 AM EDT Treva Diaz MD POINT OF CARE TEST ORDERABLES [facility] [place] [address] * (ABNORMAL) POCT Glucose (05/14/2024 9:03 PM EDT) Glucose, POC 257(H) 65 - 199 mg/dL [facility] Comment: Supplemental ranges: <140 mg/dL before meals <180 mg/dL all other times of the day Blood 05/14/2024 9:03 PM EDT 05/14/2024 9:03 PM EDT Treva Diaz MD POINT OF CARE TEST ORDERABLES [facility] [place] [address] * (ABNORMAL) POCT Glucose (05/14/2024 7:15 PM EDT) Glucose, POC 207(H) 65 - 199 mg/dL [facility] Comment: Supplemental ranges: <140 mg/dL before meals <180 mg/dL all other times of the day Blood 05/14/2024 7:15 PM EDT 05/14/2024 7:15 PM EDT Treva Diaz MD POINT OF CARE TEST ORDERABLES [facility] [place] [address] * POCT Glucose (05/14/2024 4:47 PM EDT) Glucose, POC 188 65 - 199 mg/dL [facility] Comment: Supplemental ranges: <140 mg/dL before meals <180 mg/dL all other times of the day Blood 05/14/2024 4:47 PM EDT 05/14/2024 4:47 PM EDT Treva Diaz MD POINT OF CARE TEST ORDERABLES Performing Organization Address City/[facility]/ZIP Co de Phone Number [facility] [place] [address] * POCT Glucose (05/14/2024 1:21 PM EDT) Glucose, POC 163 65 - 199 mg/dL [facility] Comment: Supplemental ranges: <140 mg/dL before meals <180 mg/dL all other times of the day Blood 05/14/2024 1:21 PM EDT 05/14/2024 1:21 PM EDT Treva Diaz MD POINT OF CARE TEST ORDERABLES Performing Organization Address [facility]/ZIP Co de Phone Number [facility] [place] [address] * Anaerobic Culture (05/14/2024 11:33 AM EDT) Anaerobic Culture No anaerobic organisms isolated [facility] Toe 05/14/2024 11:3 3 AM EDT 05/14/2024 12:33 PM EDT Comment:PROXIMAL RIGHT 2ND T OE Narrative Resulting Agency Comment Spec In Lab Gennaro Meyers MD MICROBIOLOGY - GENE RAL ORDERABLES Performing Organization Address [facility]/ZIP Co de Phone Number [facility] [place] [address] * (ABNORMAL) Tissue culture (05/14/2024 11:33 AM EDT) Tissue Culture One colony of Coagulase negative Staphylococcus species(A) [facility] Gram Stain Few Neutrophils seen Rare Gram Positive Cocci in pairs seen Results called to and read back by Dr. Mihaela Galvan ??05/14/24 14:57:00 (A) [facility] Organism Coagulase negative Staphylococcus species(A) [facility] Organism Gram Positive Cocci in pairs(A) [facility] Toe 05/14/2024 11:3 3 AM [...] Sensitive Comment:Gentamicin i s not appropriate for [facility]mer-therapy. Coagulase Negative Staphylococcus species Levofloxacin MICROSCAN METHOD [...] Gennaro Meyers MD MICROBIOLOGY - [facility] ORDERABLES [facility] [place] [address] * Surgical Pathology Report (05/14/2024 11:32 AM EDT) Surgical Pathology Report [id number] ? Location: [id number]; A The signing [...] MD, Shima Verified: ??05/20/2024 11:25 Performed at: ??-[facility] [place]ology, [place] [address] Administration Clerk: Polly Barnhart MD, FCAP, ??CLIA Certificate: [id number] SPECIMEN(S) SUBMITTED A - RIGHT 2ND TOE, [...] Sections/Processi ng: Blocks submitted for decalcification: A1-A2. Training [employer] Development Specialist sections in 2 cassettes as follows: ?A1-A2: ??Longitudinal section of digit ??cmk [facility] 05/14/2024 11:3 2 AM EDT Gennaro Meyers MD PATHOLOGY/CYTOLOGY ORDERABLES [facility] [place] [address] * Specimen to Pathology (05/14/2024 11:32 AM EDT) AP Specimen 05/14/2024 11:3 2 AM EDT 05/14/2024 11:32 AM EDT Narrative [facility] - 05/14/2024 11:32 AM EDT Specimen requisition ordered. ??Separate Pathology report to follow Treva Diaz MD PATHOLOGY/CYTOLOGY ORDERABLES Performing Organization Address City/[facility] [[email or web address]] Co de Phone Number [facility] [place] [address] * (ABNORMAL) POCT Glucose (05/14/2024 7:58 AM EDT) [facility] Glucose, POC 203(H) 65 - 199 mg/dL [facility] Comment: Supplemental ranges: <140 mg/dL before meals <180 mg/dL all other times of the day Blood 05/14/2024 7:58 AM EDT 05/14/2024 7:58 AM EDT Treva Diaz MD POINT OF CARE TEST ORDERABLES Performing Organization Address [facility] [[email or web address]] Co de Phone Number [facility] [place] [address] * (ABNORMAL) Differential, Automated (05/14/2024 5:01 AM EDT) [facility] [facility] Neutrophil % 80.5 % [facility] Neutrophil Absolute 12.45(H) 1.70 - 6.10 x10(3)/mc L [facility] Lymph % 5.5 % [facility] Lymphocytes Abs 0.8(L) 0.9 - 3.2 x10(3)/mc L [facility] Monocyte % 12.6 % [facility] Monocyte Abs 2.0(H) 0.3 - 0.9 x10(3)/mc L [facility] Eos % 0.3 % [facility] Eosinophils Abs 0.0 0.0 - 0.4 x10(3)/mc L [facility] Basophil % 0.2 % [facility] Baso Absolute 0.0 0.0 - 0.1 x10(3)/ L [facility] Immature Gran % 0.90 % [facility] Comment: Immature granulocytes(IG's)percentage and absolute count will include metamyelocytes, myelocytes, and promyelocytes. Blood smears from CBCs yielding IG's will be scanned manually for concordance. If this scan disagrees with the automated IG or if promyelocytes are noted, a manual differential will be performed. Immature Gran Absolute 0.14(H) 0.00 - 0.04 x10(3)/[facility] Blood 05/14/2024 5:01 AM EDT 05/14/2024 6:02 AM EDT Narrative Resulting Agency Comment Spec In Lab Carlotta Davis MD HEMATOLOGY OR DERABLES [facility] [place] [id number] * (ABNORMAL) Hemogram (05/14/2024 5:01 AM EDT) White Blood Cell 15.5(H) 4.0 - 9.5 x10(3)/ L [facility] Red Blood Cell 3.55(L) 4.58 - 5.54 x10(6)/mc L [facility] Hemoglobin 10.8(L) 13.7 - 16.5 g/dL [facility] Hematocrit 32.8(L) 40.5 - 48.5 % [facility] Mean Cell Volume 92.4 82.9 - 93.1 fL [facility] Mean Cell Hemoglobin 30.4 27.5 - 32.1 pg [facility] Mean Cell Hemoglobin Concentration 32.9 32.0 - 35.7 g/dL [facility] Platelet 190 145 - 357 x10(3)/ L [facility] RDW Standard Deviation 53.2(H) 36.0 - 45.0 fL [facility] RDW coefficient of variation 15.6(H) 11.4 - 13.8 % [facility] Mean Platelet Volume 11.2 7.6 - 12.9 fL [facility] NRBC% auto 0.0 % [facility] NRBC Absolute 0.000 0.000 - 0.000 x10(3)/mc L [facility] Blood 05/14/2024 5:01 AM EDT 05/14/2024 6:02 AM EDT Narrative Resulting Agency Comment Spec In Lab Carlotta Davis MD HEMATOLOGY OR DERABLES Performing Organization Address [facility] [place] [address] * Magnesium (05/14/2024 5:01 AM EDT) Magnesium 0.98 0.69 - 1.07 mmol/L [facility] Blood 05/14/2024 5:01 AM EDT 05/14/2024 6:02 AM EDT Narrative Resulting Agency Comment Spec In Lab Mary De La Fuente MD CHEMISTRY ORDERABL ES Performing Organization Address [facility] [place] [address] * Phosphorus (05/14/2024 5:01 AM EDT) Phosphorus 2.8 2.5 - 4.5 mg/dL [facility] Blood 05/14/2024 5:01 AM EDT 05/14/2024 6:02 AM EDT Narrative Resulting Agency Comment Spec In Lab Mary De La Fuente MD CHEMISTRY ORDERABL ES Performing Organization Address [facility] [[email or web address]] Co de Phone Number [facility] [place] [address] * (ABNORMAL) Basic Metabolic Panel (non-fasting) (05/14/2024 5:01 AM EDT) Glucose 172 65 - 199 mg/dL [facility] Comment:Diabetes: >=200 mg/d L plus symptoms Blood Urea Nitrogen 46(H) 10 - 20 mg/dL [facility] Creatinine 1.56(H) 0.80 - 1.50 mg/dL [facility] Sodium 137 135 - 145 mmol/L [facility] Potassium 4.4 3.5 - 5.0 mmol/L [facility] Comment: Please note: ??Patients with WBC >100,000 may have falsely elevated Potassium levels. ??For accurate Potassium quantification in these patients send serum separator tube (gold top) for subsequent determinations. ??Contact the Clinical Chemistry Laboratory if there are any questions. Chloride 105 98 - 107 mmol/L [facility] Carbon Dioxide 22 22 - 31 mmol/L [facility] Anion Gap 10 5 - 15 mmol/L [facility] Calcium 8.7 8.5 - 10.5 mg/dL [facility] Est Glomerular Filtration Rate 47(L) >=60 mL/min/1. 73 m?? [facility] Comment: This patient's estimated GFR [...] MD CHEMISTRY ORDERABL ES Performing Organization Address City/[facility] [[email or web address]] Co de Phone Number [facility] [place] [address] * Vancomycin Level, Random (05/14/2024 5:01 AM EDT) Vancomycin, Random 13.5 mg/L [facility] Comment: This level is for determination of the patient's vancomycin mknt-nraqk-wcg-curve (AUC) value. Contact the inpatient pharmacy for interpretation. Blood 05/14/2024 5:01 AM EDT 05/14/2024 6:02 AM EDT Treva Diaz MD CHEMISTRY ORDERABL ES Performing Organization Address [facility] [[email or web address]] Co de Phone Number [facility] [place] [address] * POCT Glucose (05/13/2024 8:41 PM EDT) Glucose, POC 179 65 - 199 mg/dL [facility] Comment: Supplemental ranges: <140 mg/dL before meals <180 mg/dL all other times of the day Blood 05/13/2024 8:41 PM EDT 05/13/2024 8:41 PM EDT Treva Diaz MD POINT OF CARE TEST ORDERABLES Performing Organization Address City/[facility]/ZIP Co de Phone Number [facility] [place] [address] * POCT Glucose (05/13/2024 6:06 PM EDT) Glucose, POC 135 65 - 199 mg/dL [facility] Comment: Supplemental ranges: <140 mg/dL before meals <180 mg/dL all other times of the day Blood 05/13/2024 6:06 PM EDT 05/13/2024 6:06 PM EDT Treva Diaz MD POINT OF CARE TEST ORDERABLES [facility] [place] [address] * POCT Glucose (05/13/2024 11:12 AM EDT) Glucose, POC 163 65 - 199 mg/dL [facility] Comment: Supplemental ranges: <140 mg/dL before meals <180 mg/dL all other times of the day Blood 05/13/2024 11:1 2 AM EDT 05/13/2024 11:12 AM EDT Treva Diaz MD POINT OF CARE TEST ORDERABLES Performing Organization Address City/[facility]/ZIP Co de Phone Number [facility] [place] [address] * POCT Glucose (05/13/2024 7:47 AM EDT) Glucose, POC 194 65 - 199 mg/dL [facility] Comment: Supplemental ranges: <140 mg/dL before meals <180 mg/dL all other times of the day Blood 05/13/2024 7:47 AM EDT 05/13/2024 7:47 AM EDT Treva Diaz MD POINT OF CARE TEST ORDERABLES Performing Organization Address City/[facility]/ZIP Co de Phone Number [facility] [place] [address] * Scan, Peripheral Blood (05/13/2024 5:29 AM EDT) Plat estimate Normal [facility] RBC Morphology Abnormal [facility] Sofía Cells 1-5 /HPF [facility] Plat, Giant Less than 1 /HPF [facility] Blood 05/13/2024 5:29 AM EDT 05/13/2024 5:49 AM EDT Narrative Resulting Agency Comment Spec In Lab Carlotta Davis MD HEMATOLOGY OR DERABLES Performing Organization Address City/[facility]/ZIP Co de Phone Number [facility] [place] [address] * (ABNORMAL) Differential, Automated (05/13/2024 5:29 AM EDT) Neutrophil % 81.8 % [facility] Neutrophil Absolute 12.66(H) 1.70 - 6.10 x10(3)/mc L [facility] Lymph % 5.0 % [facility] Lymphocytes Abs 0.8(L) 0.9 - 3.2 x10(3)/ L [facility] Monocyte % 12.3 % [facility] Monocyte Abs 1.9(H) 0.3 - 0.9 x10(3)/mc L [facility] Eos % 0.2 % [facility] Eosinophils Abs 0.0 0.0 - 0.4 x10(3)/mc L [facility] Basophil % 0.1 % [facility] Baso Absolute 0.0 0.0 - 0.1 x10(3)/mc L [facility] Immature Gran % 0.60 % [facility] Comment: Immature granulocytes(IG's)percentage and absolute count will include metamyelocytes, myelocytes, and promyelocytes. Blood smears from CBCs yielding IG's will be scanned manually for concordance. If this scan disagrees with the automated IG or if promyelocytes are noted, a manual differential will be performed. Immature Gran Absolute 0.09(H) 0.00 - 0.04 x10(3)/mc L [facility] Blood 05/13/2024 5:29 AM EDT 05/13/2024 5:49 AM EDT Narrative Resulting Agency Comment Spec In Lab Carlotta Davis MD HEMATOLOGY OR DERABLES Performing Organization Address City/[facility]/ZIP Co de Phone Number [facility] [place] [address] * (ABNORMAL) Hemogram (05/13/2024 5:29 AM EDT) White Blood Cell 15.5(H) 4.0 - 9.5 x10(3)/ L [facility] Red Blood Cell 3.64(L) 4.58 - 5.54 x10(6)/[facility] Hemoglobin 10.9(L) 13.7 - 16.5 g/dL [facility] Hematocrit 33.3(L) 40.5 - 48.5 % [facility] Mean Cell Volume 91.5 82.9 - 93.1 fL [facility] Mean Cell Hemoglobin 29.9 27.5 - 32.1 pg [facility] Mean Cell Hemoglobin Concentration 32.7 32.0 - 35.7 g/dL [facility] Platelet 186 145 - 357 x10(3)/[facility] RDW Standard Deviation 53.0(H) 36.0 - 45.0 [facility] RDW coefficient of variation 15.8(H) 11.4 - 13.8 % [facility] Mean Platelet Volume 11.8 7.6 - 12.9 fL [facility] NRBC% auto 0.0 % [facility] NRBC Absolute 0.000 0.000 - 0.000 x10(3)/[facility] Blood 05/13/2024 5:29 AM EDT 05/13/2024 5:49 AM EDT Narrative Resulting Agency Comment Spec In Lab Carlotta Davis MD HEMATOLOGY OR DERABLES [facility] [place] [address] * Magnesium (05/13/2024 5:29 AM EDT) Pathologist [facility] Magnesium 0.99 0.69 - 1.07 mmol/L [facility] Blood 05/13/2024 5:29 AM EDT 05/13/2024 5:49 AM EDT Narrative Resulting Agency Comment Spec In Lab Mary De La Fuente MD CHEMISTRY ORDERABL ES Performing Organization Address [facility] [[email or web address]] Co de Phone Number [facility] [place] [address] * Phosphorus (05/13/2024 5:29 AM EDT) Phosphorus 2.7 2.5 - 4.5 mg/dL [facility] Blood 05/13/2024 5:29 AM EDT 05/13/2024 5:49 AM EDT Narrative Resulting Agency Comment Spec In Lab Mary De LaF uente MD CHEMISTRY ORDERABL ES Performing Organization Address [facility] de Phone Number [facility] [place] [address] * (ABNORMAL) Basic Metabolic Panel (non-fasting) (05/13/2024 5:29 AM EDT) Glucose 166 65 - 199 mg/dL [facility] Comment:Diabetes: >=200 mg/d L plus symptoms Blood Urea Nitrogen 57(H) 10 - 20 mg/dL [facility] Creatinine 1.53(H) 0.80 - 1.50 mg/dL [facility] Sodium 137 135 - 145 mmol/L [facility] Potassium 4.4 3.5 - 5.0 mmol/L [facility] Comment: Please note: ??Patients with WBC >100,000 may have falsely elevated Potassium levels. ??For accurate Potassium quantification in these patients send serum separator tube (gold top) for subsequent determinations. ??Contact the Clinical Chemistry Laboratory if there are any questions. Chloride 104 98 - 107 mmol/L [facility] Carbon Dioxide 24 22 - 31 mmol/L [facility] Anion Gap 9 5 - 15 mmol/L [facility] Calcium 8.7 8.5 - 10.5 mg/dL [facility] Est Glomerular Filtration Rate 49(L) >=60 mL/min/1. 73 m?? [facility] Comment: This patient's estimated GFR [...] MD CHEMISTRY ORDERABL ES Performing Organization Address City/[facility]/ZIP Co de Phone Number [facility] [place] [address] * POCT Glucose (05/12/2024 11:46 PM EDT) Glucose, POC 165 65 - 199 mg/dL [facility] Comment: Supplemental ranges: <140 mg/dL before meals <180 mg/dL all other times of the day Blood 05/12/2024 11:4 6 PM EDT 05/12/2024 11:46 PM EDT Treva Diaz MD POINT OF CARE TEST ORDERABLES [facility] [place] [address] * POCT Glucose (05/12/2024 8:36 PM EDT) Glucose, POC 164 65 - 199 mg/dL [facility] Comment: Supplemental ranges: <140 mg/dL before meals <180 mg/dL all other times of the day Blood 05/12/2024 8:36 PM EDT 05/12/2024 8:36 PM EDT Treva Diaz MD POINT OF CARE TEST ORDERABLES Performing Organization Address City/[facility]/ZIP Co de Phone Number [facility] [place] [address] * POCT Glucose (05/12/2024 5:38 PM EDT) Glucose, POC 175 65 - 199 mg/dL [facility] Comment: Supplemental ranges: <140 mg/dL before meals <180 mg/dL all other times of the day Blood 05/12/2024 5:38 PM EDT 05/12/2024 5:38 PM EDT Treva Diaz MD POINT OF CARE TEST ORDERABLES Performing Organization Address [facility]/ZIP Co de Phone Number [facility] [place] [address] * Vancomycin Level, Random (05/12/2024 2:10 PM EDT) Vancomycin, Random 22.3 mg/L [facility] Comment: This level is for determination of the patient's vancomycin tpgs-abfeb-wpt-curve (AUC) value. Contact the inpatient pharmacy for interpretation. Blood 05/12/2024 2:10 PM EDT 05/12/2024 2:23 PM EDT Treva Diaz MD CHEMISTRY ORDERABL ES Performing Organization Address City/[facility]/ZIP Co de Phone Number [facility] [place] [address] * POCT Glucose (05/12/2024 1:42 PM EDT) Glucose, POC 168 65 - 199 mg/dL [facility] Comment: Supplemental ranges: <140 mg/dL before meals <180 mg/dL all other times of the day Blood 05/12/2024 1:42 PM EDT 05/12/2024 1:42 PM EDT Treva Diaz MD POINT OF CARE TEST ORDERABLES Performing Organization Address City/[facility] [[email or web address]] Co de Phone Number [facility] [place] [address] * Duplex for DVT, Leg, Unilat (05/12/2024 10:19 AM EDT) VB Text Report Department: Vascular Surgery Lab Patient: [id number] (JOSSY SHANKS) CPT: 18298 Referring Physician: MARY DE LA FUENTE ?? [...] MD VASCULAR ORDERABLE S Performing Organization Address City/[facility]/ZIP Co de Phone Number [email or web address] * POCT Glucose (05/12/2024 9:00 AM EDT) Glucose, POC 161 65 - 199 mg/dL [facility] Comment: Supplemental ranges: <140 mg/dL before meals <180 mg/dL all other times of the day Blood 05/12/2024 9:00 AM EDT 05/12/2024 9:00 AM EDT Treva Diaz MD POINT OF CARE TEST ORDERABLES Performing Organization Address [facility] [[email or web address]] Co de Phone Number [facility] [place] [address] * (ABNORMAL) Sedimentation rate (05/12/2024 4:45 AM EDT) [facility] Sedimentation Rate Automated >119(H) 3 - 46 mm/hr [facility] Comment: Effective September 24, 2019 [...] MD HEMATOLOGY ORDERABLE S Performing Organization Address [facility] [[email or web address]] Co de Phone Number [facility] [place] [address] * (ABNORMAL) CRP, acute inflammation (05/12/2024 4:45 AM EDT) [facility] C-Reactive Protein 152.4(H) <=4.9 mg/L [facility] Blood Venous Draw / Unknown 05/12/2024 4:45 AM EDT 05/12/2024 5:12 AM EDT Narrative Resulting Agency Comment Spec In Lab Juan José Harrison MD CHEMISTRY ORDERABLES Performing Organization Address [facility] [[email or web address]] Co de Phone Number [facility] [place] [address] * (ABNORMAL) Differential, Automated (05/12/2024 4:45 AM EDT) [facility] Neutrophil % 87.9 % [facility] Neutrophil Absolute 17.31(H) 1.70 - 6.10 x10(3)/mc L [facility] Lymph % 3.9 % [facility] Lymphocytes Abs 0.8(L) 0.9 - 3.2 x10(3)/mc L [facility] Monocyte % 7.4 % [facility] Monocyte Abs 1.4(H) 0.3 - 0.9 x10(3)/ L [facility] Eos % 0.0 % [facility] Eosinophils Abs 0.0 0.0 - 0.4 x10(3)/ L [facility] Basophil % 0.1 % [facility] Baso Absolute 0.0 0.0 - 0.1 x10(3)/ L [facility] Immature Gran % 0.70 % [facility] Comment: Immature granulocytes(IG's)percentage and absolute count will include metamyelocytes, myelocytes, and promyelocytes. Blood smears from CBCs yielding IG's will be scanned manually for concordance. If this scan disagrees with the automated IG or if promyelocytes are noted, a manual differential will be performed. Immature Gran Absolute 0.14(H) 0.00 - 0.04 x10(3)/ L [facility] Blood 05/12/2024 4:45 AM EDT 05/12/2024 5:06 AM EDT Narrative Resulting Agency Comment Spec In Lab Carlotta Davis MD HEMATOLOGY OR DERABLES Performing Organization Address City/State/[facility] [[email or web address]] Co de Phone Number [facility] [place] [address] * (ABNORMAL) Hemogram (05/12/2024 4:45 AM EDT) White Blood Cell 19.7(H) 4.0 - 9.5 x10(3)/ L [facility] Red Blood Cell 3.58(L) 4.58 - 5.54 x10(6)/mc L [facility] Hemoglobin 10.9(L) 13.7 - 16.5 g/dL [facility] Hematocrit 33.1(L) 40.5 - 48.5 % [facility] Mean Cell Volume 92.5 82.9 - 93.1 fL [facility] Mean Cell Hemoglobin 30.4 27.5 - 32.1 pg [facility] Mean Cell Hemoglobin Concentration 32.9 32.0 - 35.7 g/dL [facility] Platelet 165 145 - 357 x10(3)/mc L [facility] RDW Standard Deviation 53.2(H) 36.0 - 45.0 fL [facility] RDW coefficient of variation 15.7(H) 11.4 - 13.8 % [facility] Mean Platelet Volume 12.1 7.6 - 12.9 fL [facility] NRBC% auto 0.0 % [facility] NRBC Absolute 0.000 0.000 - 0.000 x10(3)/mc L [facility] Blood 05/12/2024 4:45 AM EDT 05/12/2024 5:06 AM EDT Narrative Resulting Agency Comment Spec In Lab Carlotta Davis MD HEMATOLOGY OR DERABLES Performing Organization Address [facility] [[email or web address]] Co de Phone Number [facility] [place] [address] * Magnesium (05/12/2024 4:45 AM EDT) Magnesium 1.07 0.69 - 1.07 mmol/L [facility] Blood 05/12/2024 4:45 AM EDT 05/12/2024 5:06 AM EDT Narrative Resulting Agency Comment Spec In Lab Mary De La Fuente MD CHEMISTRY ORDERABL ES Performing Organization Address [facility] [[email or web address]] Co de Phone Number [facility] [place] [address] * Phosphorus (05/12/2024 4:45 AM EDT) Phosphorus 2.7 2.5 - 4.5 mg/dL [facility] Blood 05/12/2024 4:45 AM EDT 05/12/2024 5:06 AM EDT Narrative Resulting Agency Comment Spec In Lab Mary De La Fuente MD CHEMISTRY ORDERABL ES [facility] [place] [address] * (ABNORMAL) Basic Metabolic Panel (non-fasting) (05/12/2024 4:45 AM EDT) Glucose 156 65 - 199 mg/dL [facility] Comment:Diabetes: >=200 mg/d L plus symptoms Blood Urea Nitrogen 72(H) 10 - 20 mg/dL [facility] Creatinine 2.03(H) 0.80 - 1.50 mg/dL [facility] Sodium 135 135 - 145 mmol/L [facility] Potassium 4.5 3.5 - 5.0 mmol/L [facility] Comment: Please note: ??Patients with WBC >100,000 may have falsely elevated Potassium levels. ??For accurate Potassium quantification in these patients send serum separator tube (gold top) for subsequent determinations. ??Contact the Clinical Chemistry Laboratory if there are any questions. Chloride 101 98 - 107 mmol/L [facility] Carbon Dioxide 24 22 - 31 mmol/L [facility] Anion Gap 10 5 - 15 mmol/L [facility] Calcium 8.4(L) 8.5 - 10.5 mg/dL [facility] Est Glomerular Filtration Rate 35(L) >=60 mL/min/1. 73 m?? [facility] Comment: This patient's estimated GFR [...] MD CHEMISTRY ORDERABL ES Performing Organization Address City/[facility] [[email or web address]] Co de Phone Number [facility] [place] [address] * ANGY, legs, multiple levels (05/12/2024 3:22 AM EDT) VB Text Report Department: Vascular Surgery Lab Patient: [id number] (JOSSY SHANKS) CPT: [id number] Referring Physician: THO DICKSON ?? Phone: Indications: [...] Fuente MD VASCULAR ORDERABLE S [facility] * (ABNORMAL) POCT Glucose (05/11/2024 8:14 PM EDT) Glucose, POC 201(H) 65 - 199 mg/dL [facility] Comment: Supplemental ranges: <140 mg/dL before meals <180 mg/dL all other times of the day Blood 05/11/2024 8:14 PM EDT 05/11/2024 8:14 PM EDT Treva Diaz MD POINT OF CARE TEST ORDERABLES [facility] [place] [address] * Vancomycin Level, Random (05/11/2024 8:10 PM EDT) Vancomycin, Random 21.7 mg/L [facility] Comment: This level is for determination of the patient's vancomycin hjfg-thcig-roo-curve (AUC) value. Contact the inpatient pharmacy for interpretation. Blood 05/11/2024 8:10 PM EDT 05/11/2024 8:32 PM EDT Treva Diaz MD CHEMISTRY ORDERABL ES Performing Organization Address [facility]/ZIP Co de Phone Number [facility] [place] [address] * POCT Glucose (05/11/2024 4:34 PM EDT) Glucose, POC 197 65 - 199 mg/dL [facility] Comment: Supplemental ranges: <140 mg/dL before meals <180 mg/dL all other times of the day Blood 05/11/2024 4:34 PM EDT 05/11/2024 4:34 PM EDT Treva Diaz MD POINT OF CARE TEST ORDERABLES Performing Organization Address City/[facility]/ZIP Co de Phone Number [facility] [place] [address] * (ABNORMAL) POCT Glucose (05/11/2024 11:47 AM EDT) Glucose, POC 255(H) 65 - 199 mg/dL [facility] Comment: Supplemental ranges: <140 mg/dL before meals <180 mg/dL all other times of the day Blood 05/11/2024 11:4 7 AM EDT 05/11/2024 11:47 AM EDT Treva Diaz MD POINT OF CARE TEST ORDERABLES [facility] [place] [address] * (ABNORMAL) POCT Glucose (05/11/2024 6:57 AM EDT) Glucose, POC 200(H) 65 - 199 mg/dL [facility] Comment: Supplemental ranges: <140 mg/dL before meals <180 mg/dL all other times of the day Blood 05/11/2024 6:57 AM EDT 05/11/2024 6:57 AM EDT Treva Diaz MD POINT OF CARE TEST ORDERABLES [facility] [place] [address] * (ABNORMAL) Differential, Automated (05/11/2024 2:00 AM EDT) Neutrophil % 85.8 % [facility] Neutrophil Absolute 22.16(H) 1.70 - 6.10 x10(3)/mc L [facility] Lymph % 1.5 % [facility] Lymphocytes Abs 0.4(L) 0.9 - 3.2 x10(3)/mc L [facility] Monocyte % 4.9 % [facility] Monocyte Abs 1.3(H) 0.3 - 0.9 x10(3)/mc L [facility] Eos % 0.0 % [facility] Eosinophils Abs 0.0 0.0 - 0.4 x10(3)/ L [facility] Basophil % 0.1 % [facility] Baso Absolute 0.0 0.0 - 0.1 x10(3)/ L [facility] Immature Gran % 7.70 % [facility] Comment: Immature granulocytes(IG's)percentage and absolute count will include metamyelocytes, myelocytes, and promyelocytes. Blood smears from CBCs yielding IG's will be scanned manually for concordance. If this scan disagrees with the automated IG or if promyelocytes are noted, a manual differential will be performed. Immature Gran Absolute 1.98(H) 0.00 - 0.04 x10(3)/[facility] Blood 05/11/2024 2:00 AM EDT 05/11/2024 2:07 AM EDT Narrative Resulting Agency Comment Spec In Lab Carlotta Davis MD HEMATOLOGY OR DERABLES [facility] [place] [address] * (ABNORMAL) Hemogram (05/11/2024 2:00 AM EDT) White Blood Cell 25.8(H) 4.0 - 9.5 x10(3)/ L [facility] Red Blood Cell 3.64(L) 4.58 - 5.54 x10(6)/mc L [facility] Hemoglobin 10.9(L) 13.7 - 16.5 g/dL [facility] Hematocrit 32.5(L) 40.5 - 48.5 % [facility] Mean Cell Volume 89.3 82.9 - 93.1 fL [facility] Mean Cell Hemoglobin 29.9 27.5 - 32.1 pg [facility] Mean Cell Hemoglobin Concentration 33.5 32.0 - 35.7 g/dL [facility] Platelet 141(L) 145 - 357 x10(3)/mc L [facility] RDW Standard Deviation 51.2(H) 36.0 - 45.0 fL [facility] RDW coefficient of variation 15.6(H) 11.4 - 13.8 % [facility] Mean Platelet Volume 12.9 7.6 - 12.9 fL [facility] NRBC% auto 0.0 % [facility] NRBC Absolute 0.000 0.000 - 0.000 x10(3)/mc L [facility] Blood 05/11/2024 2:00 AM EDT 05/11/2024 2:07 AM EDT Narrative Resulting Agency Comment Spec In Lab Carlotta Davis MD HEMATOLOGY OR DERABLES Performing Organization Address City/[facility]/ZIP Co de Phone Number [facility] [place] [address] * Magnesium (05/11/2024 2:00 AM EDT) Magnesium 1.01 0.69 - 1.07 mmol/L [facility] Blood 05/11/2024 2:00 AM EDT 05/11/2024 2:07 AM EDT Narrative Resulting Agency Comment Spec In Lab Mary De La Fuente MD CHEMISTRY ORDERABL ES Performing Organization Address City/[facility]/ZIP Co de Phone Number [facility] [place] [address] * Phosphorus (05/11/2024 2:00 AM EDT) Phosphorus 4.0 2.5 - 4.5 mg/dL [facility] Blood 05/11/2024 2:00 AM EDT 05/11/2024 2:07 AM EDT Narrative Resulting Agency Comment Spec In Lab Mary De La Fuente MD CHEMISTRY ORDERABL ES [facility] [place] [address] * (ABNORMAL) Basic Metabolic Panel (non-fasting) (05/11/2024 2:00 AM EDT) Glucose 212(H) 65 - 199 mg/dL [facility] Comment:Diabetes: >=200 mg/d L plus symptoms Blood Urea Nitrogen 72(H) 10 - 20 mg/dL [facility] Creatinine 2.58(H) 0.80 - 1.50 mg/dL [facility] Comment:result rechecked-HN Sodium 136 135 - 145 mmol/L [facility] Potassium 4.7 3.5 - 5.0 mmol/L [facility] Comment: Please note: ??Patients with WBC >100,000 may have falsely elevated Potassium levels. ??For accurate Potassium quantification in these patients send serum separator tube (gold top) for subsequent determinations. ??Contact the Clinical Chemistry Laboratory if there are any questions. Chloride 100 98 - 107 mmol/L [facility] Carbon Dioxide 24 22 - 31 mmol/L [facility] Anion Gap 12 5 - 15 mmol/L [facility] Calcium 8.3(L) 8.5 - 10.5 mg/dL [facility] Est Glomerular Filtration Rate 26(L) >=60 mL/min/1. 73 m?? [facility] Comment: This patient's estimated GFR [...] MD CHEMISTRY ORDERABL ES Performing Organization Address [facility] de Phone Number [facility] [place] [address] * Vancomycin Level, Random (05/11/2024 2:00 AM EDT) Vancomycin, Random 21.4 mg/L [facility] Comment: This level is for determination of the patient's vancomycin rojz-qddvx-zit-curve (AUC) value. Contact the inpatient pharmacy for interpretation. Blood 05/11/2024 2:00 AM EDT 05/11/2024 2:07 AM EDT Mary De La Fuente MD CHEMISTRY ORDERABL ES Performing Organization Address [facility] Phone Number [facility] [place] [address] * (ABNORMAL) POCT Glucose (05/10/2024 11:40 PM EDT) Glucose, POC 230(H) 65 - 199 mg/dL [facility] Comment: Supplemental ranges: <140 mg/dL before meals <180 mg/dL all other times of the day Blood 05/10/2024 11:4 0 PM EDT 05/10/2024 11:40 PM EDT Treva Diaz MD POINT OF CARE TEST ORDERABLES Performing Organization Address [facility] [[email or web address]] Co de Phone Number [facility] [place] [address] * POCT Glucose (05/10/2024 4:09 PM EDT) Glucose, POC 189 65 - 199 mg/dL [facility] Comment: Supplemental ranges: <140 mg/dL before meals <180 mg/dL all other times of the day Blood 05/10/2024 4:09 PM EDT 05/10/2024 4:09 PM EDT Treva Diaz MD POINT OF CARE TEST ORDERABLES Performing Organization Address City/[facility]/ZIP Co de Phone Number [facility] [place] [address] * POCT Glucose (05/10/2024 12:11 PM EDT) Glucose, POC 185 65 - 199 mg/dL [facility] Comment: Supplemental ranges: <140 mg/dL before meals <180 mg/dL all other times of the day Blood 05/10/2024 12:1 1 PM EDT 05/10/2024 12:11 PM EDT Mary De La Fuente MD POINT OF CARE TEST ORDERABLES Performing Organization Address [facility] [[email or web address]] Co de Phone Number [facility] [place] [address] * Vancomycin Level, Random (05/10/2024 12:00 PM EDT) Vancomycin, Random 15.5 mg/L [facility] Comment: This level is for determination of the patient's vancomycin jwth-bzipw-xmg-curve (AUC) value. Contact the inpatient pharmacy for interpretation. Blood 05/10/2024 12:0 0 PM EDT 05/10/2024 12:21 PM EDT Tho Dickson MD CHEMISTRY ORDERABLES Performing Organization Address City/[facility]/ZIP Co de Phone Number [facility] [place] [address] * POCT Glucose (05/10/2024 8:09 AM EDT) Glucose, POC 195 65 - 199 mg/dL [facility] Comment: Supplemental ranges: <140 mg/dL before meals <180 mg/dL all other times of the day Blood 05/10/2024 8:09 AM EDT 05/10/2024 8:09 AM EDT Mary De La Fuente MD POINT OF CARE TEST ORDERABLES Performing Organization Address City/[facility]/ZIP Co de Phone Number [facility] [place] [address] * CK (05/10/2024 6:55 AM EDT) Creatine Kinase 58 0 - 200 unit/L [facility] Blood Venous Draw / Unknown 05/10/2024 6:55 AM EDT 05/10/2024 7:41 AM EDT Narrative Resulting Agency Comment Spec In Lab Emmanuel Corey DO CHEMISTRY ORDERABLES Performing Organization Address [facility] [[email or web address]] Co de Phone Number [facility] [place] [address] * (ABNORMAL) Phosphorus (05/10/2024 6:55 AM EDT) Phosphorus 5.1(H) 2.5 - 4.5 mg/dL [facility] Blood 05/10/2024 6:55 AM EDT 05/10/2024 6:59 AM EDT Narrative Resulting Agency Comment Spec In Lab Tho Dickson MD CHEMISTRY ORDERABLES Performing Organization Address [facility]/ZIP Co de Phone Number [facility] [place] [address] * (ABNORMAL) Basic Metabolic Panel (non-fasting) (05/10/2024 6:55 AM EDT) Glucose 193 65 - 199 mg/dL [facility] Comment:Diabetes: >=200 mg/d L plus symptoms Blood Urea Nitrogen 69(H) 10 - 20 mg/dL [facility] Creatinine 3.75(H) 0.80 - 1.50 mg/dL [facility] Sodium 128(L) 135 - 145 mmol/L [facility] Potassium 5.0 3.5 - 5.0 mmol/L [facility] Comment: Please note: ??Patients with WBC >100,000 may have falsely elevated Potassium levels. ??For accurate Potassium quantification in these patients send serum separator tube (gold top) for subsequent determinations. ??Contact the Clinical Chemistry Laboratory if there are any questions. Chloride 93(L) 98 - 107 mmol/L [facility] Carbon Dioxide 23 22 - 31 mmol/L [facility] Anion Gap 12 5 - 15 mmol/L [facility] Calcium 8.6 8.5 - 10.5 mg/dL [facility] Est Glomerular Filtration Rate 17(L) >=60 mL/min/1. 73 m?? [facility] Comment: This patient's estimated GFR [...] In Lab Tho Dickson MD CHEMISTRY ORDERABLES [facility] [place] [address] * Lactate, whole blood, [place] (05/10/2024 6:55 AM EDT) Lactate WB 1.7 0.5 - 2.2 mmol/L [facility] Blood 05/10/2024 6:55 AM EDT 05/10/2024 7:00 AM EDT Narrative Resulting Agency Comment Spec In Lab Tho Dickson MD CHEMISTRY ORDERABLES [facility] [place] [address] * MRI Foot wwo Contrast Right (05/10/2024 5:51 AM EDT) WORKSTATION ID [id number] RAD Anatomical Region Laterality Modality Foot Right [...] who have questions please contact the health specialist wound care that requested your imaging first. ? Narrative [...] patients who have questions please contactthe health specialist wound care that requested your imaging first. Tho Dickson MD [facility] [place] ORDER[place]LES * Creatinine, urine, random (05/10/2024 4:15 AM EDT) Creatinine, Urine 106 mg/dL [facility] Urine 05/10/2024 4:15 AM EDT 05/10/2024 4:23 AM EDT Narrative Resulting Agency Comment Spec In Lab Tho Dickson MD URINE ORDERABLES Performing Organization Address [facility] [[email or web address]] Co de Phone Number [facility] [place] [address] * Sodium, urine, random (05/10/2024 4:15 AM EDT) Sodium, Urine <20 mmol/L [facility] Urine 05/10/2024 4:15 AM EDT 05/10/2024 4:23 AM EDT Narrative Resulting Agency Comment Spec In Lab Tho Dickson MD URINE ORDERABLES Performing Organization Address [facility]/ZIP Co de Phone Number [facility] [place] [address] * Urea nitrogen, urine, random (05/10/2024 4:15 AM EDT) Urea Nitrogen, Urine 580 mg/dL [facility] Urine 05/10/2024 4:15 AM EDT 05/10/2024 4:23 AM EDT Narrative Resulting Agency Comment Spec In Lab Tho Dickson MD URINE ORDERABLES Performing Organization Address [facility] [[email or web address]] Co de Phone Number [facility] [place] [address] * (ABNORMAL) Skin/Superficial Wound Culture Toe (05/10/2024 2:56 AM EDT) Skin/Superfic ial Wound Culture Rare mixed bacterial morphotypes suggestive of normal cutaneous armani including Rare Gram Negative Rods (A) [facility] Gram Stain Many Neutrophils seen Few Gram Positive Cocci seen (A) [facility] Organism Gram Negative Rods(A) [facility] Organism Gram Positive Cocci(A) [facility] Superficial Wound TOE STRUCTURE / Unknown 05/10/2024 2:56 AM EDT 05/10/2024 5:18 AM EDT Comment:Right toe wound Narrative Resulting Agency Comment Spec In Lab Tho Dickson MD MICROBIOLOGY - GENER AL ORDERABLES Performing Organization Address [facility]/ZIP Co de Phone Number [facility] [place] [address] * (ABNORMAL) Urinalysis without microscopic (05/10/2024 2:42 AM EDT) Glucose, Urine Dipstick Negative Negative mg/dL [facility] Protein, Urine Dipstick 30(A) Negative mg/dL [facility] Bilirubin, Urine Dipstick Negative Negative mg/dL [facility] Comment: Clinical correlation required for positive Urine Bilirubin results as false positive may occur with some drugs and drug related products. If a false positive is suspected a serum total bilirubin should be considered if clinically indicated. Urobilinogen, Urine Dipstick Normal Normal mg/dL [facility] pH, Urn (dipstick) 5.5 5.0 - 8.0 [facility] Blood, Urine Dipstick Large(A) Negative mg/dL [facility] Ketone, Urine Dipstick Negative Negative mg/dL [facility] Nitrite, Urine Dipstick Negative Negative [facility] Leukocytes, Urine Dipstick Small(A) Negative [facility] Appearance, Urine Dipstick Cloudy(A) Clear [facility] Specific [place] Urine Automated 1.017 1.005 - 1.030 [facility] Color, Urine Dipstick [place](A) Yellow [facility] Urine 05/10/2024 2:42 AM EDT 05/10/2024 2:57 AM EDT Narrative Resulting Agency Comment Spec In Lab Tho Dickson MD URINE ORDERABLES [facility] [place] [address] * XR Chest One View (05/10/2024 2:37 AM EDT) WORKSTATION ID [id number] RAD Anatomical Region Laterality Modality Chest N/A Digital Radiogra phy Impressions 05/10/2024 3:27 AM EDT Bibasilar atelectasis. Thank you for letting us participate in the care of this patient. ??If you are a health care provider and have any questions regarding this report, please contact the number below. ??For patients who have questions please contact the health specialist wound care that requested your imaging first. ? Narrative [...] patients who have questions please contactthe health specialist wound care that requested your imaging first. Tho Dickson MD IMG DX ORDERABLES * Blood culture (05/10/2024 2:32 AM EDT) Blood Culture No growth at 5 days. [facility] Blood STRUCTURE OF RIGHT HAND / Unknown 05/10/2024 2:32 AM EDT 05/10/2024 4:17 AM EDT Narrative Resulting Agency Comment Spec In Lab Tho Dickson MD MICROBIOLOGY - BLOOD ORDERABLES Performing Organization Address [facility] [[email or web address]] Co de Phone Number [facility] [place] [address] * (ABNORMAL) POCT Glucose (05/10/2024 2:30 AM EDT) Pathologist [facility] Glucose, POC 201(H) 65 - 199 mg/dL [facility] Comment: Supplemental ranges: <140 mg/dL before meals <180 mg/dL all other times of the day Blood 05/10/2024 2:30 AM EDT 05/10/2024 2:30 AM EDT Tho Dickson MD POINT OF CARE TEST O RDERABLES Performing Organization Address [facility] [[email or web address]] Co de Phone Number [facility] [place] [address] * Vancomycin Level, Random (05/10/2024 2:20 AM EDT) [facility] Vancomycin, Random 26.9 mg/L [facility] Comment: This level is for determination of the patient's vancomycin ohal-kypfj-rky-curve (AUC) value. Contact the inpatient pharmacy for interpretation. Blood Venous Draw / Unknown 05/10/2024 2:20 AM EDT 05/10/2024 2:38 AM EDT Tho Dickson MD CHEMISTRY ORDERABLES Performing Organization Address [facility] [[email or web address]] Co de Phone Number [facility] [place] [address] * Scan, Peripheral Blood (05/10/2024 2:20 AM EDT) Pathologist [facility] Plat estimate Normal [facility] RBC Morphology Abnormal [facility] Ovalocytes 1-5 /HPF [facility] Carmen Cells 1-5 /HPF [facility] Plat, Giant Less than 1 /HPF [facility] Blood 05/10/2024 2:20 AM EDT 05/10/2024 2:36 AM EDT Narrative Resulting Agency Comment Spec In Lab Anita Camacho MD HEMATOLOGY ORDERABLE S [facility] [place] [address] * Type and Screen Validity (05/10/2024 2:20 AM EDT) Pathologist [facility] T&S only valid at [facility] Comment:This Type and Screen result is only valid at the [facility] Blood 05/10/2024 2:20 AM EDT 05/10/2024 2:49 AM EDT Narrative Resulting Agency Comment Spec In Lab Anita Camacho MD BLOOD BANK LAB ORDER ANGELIQUE Performing Organization Address City/[facility]/ZIP Co de Phone Number [facility] [place] [address] * ABORH Recheck Status (05/10/2024 2:20 AM EDT) ABORH Recheck Order Order Placed [facility] ABORH Type Recheck Completed [facility] Blood 05/10/2024 2:20 AM EDT 05/10/2024 2:49 AM EDT Narrative Resulting Agency Comment Spec In Lab Anita Camacho MD BLOOD BANK LAB ORDER ANGELIQUE [facility] [place] [address] * (ABNORMAL) Differential, Automated (05/10/2024 2:20 AM EDT) Neutrophil % 89.2 % [facility] Neutrophil Absolute 25.39(H) 1.70 - 6.10 x10(3)/ L [facility] Lymph % 1.2 % [facility] Lymphocytes Abs 0.4(L) 0.9 - 3.2 x10(3)/ L [facility] Monocyte % 2.9 % [facility] Monocyte Abs 0.8 0.3 - 0.9 x10(3)/[facility] Eos % 0.0 % [facility] Eosinophils Abs 0.0 0.0 - 0.4 x10(3)/[facility] Basophil % 0.2 % [facility] Baso Absolute 0.1 0.0 - 0.1 x10(3)/[facility] Immature Gran % 6.50 % [facility] Comment: Immature granulocytes(IG's)percentage and absolute count will include metamyelocytes, myelocytes, and promyelocytes. Blood smears from CBCs yielding IG's will be scanned manually for concordance. If this scan disagrees with the automated IG or if promyelocytes are noted, a manual differential will be performed. Immature Gran Absolute 1.85(H) 0.00 - 0.04 x10(3)/[facility] Blood 05/10/2024 2:20 AM EDT 05/10/2024 2:36 AM EDT Narrative Resulting Agency Comment Spec In Lab Anita Camacho MD HEMATOLOGY ORDERABLE S [facility] [place] [address] * (ABNORMAL) Hemogram (05/10/2024 2:20 AM EDT) White Blood Cell 28.5(H) 4.0 - 9.5 x10(3)/[facility] Red Blood Cell 3.83(L) 4.58 - 5.54 x10(6)/[facility] Hemoglobin 11.4(L) 13.7 - 16.5 g/dL [facility] Hematocrit 34.5(L) 40.5 - 48.5 % [facility] Mean Cell Volume 90.1 82.9 - 93.1 fL [facility] Mean Cell Hemoglobin 29.8 27.5 - 32.1 pg [facility] Mean Cell Hemoglobin Concentration 33.0 32.0 - 35.7 g/dL [facility] Platelet 135(L) 145 - 357 x10(3)/mc L [facility] RDW Standard Deviation 51.9(H) 36.0 - 45.0 fL [facility] RDW coefficient of variation 15.6(H) 11.4 - 13.8 % [facility] Mean Platelet Volume 12.8 7.6 - 12.9 fL [facility] NRBC% auto 0.0 % [facility] NRBC Absolute 0.000 0.000 - 0.000 x10(3)/mc L [facility] Blood 05/10/2024 2:20 AM EDT 05/10/2024 2:36 AM EDT Narrative Resulting Agency Comment Spec In Lab Anita Camacho MD HEMATOLOGY ORDERABLE S [facility] [place] [address] * (ABNORMAL) Hemoglobin A1c (05/10/2024 2:20 AM EDT) Hemoglobin A1c 5.9(H) 4.3 - 5.6 % [facility] Comment: Reference Range: 4.3 - [...] Mellitus, Diabetes Care 2013; 36: Suppl. 1, C07-12 Estimated Average Glucose See note mg/dL [facility] Comment: Estimated Average Glucose not appropriate for patients over 70 years of age. Blood 05/10/2024 2:20 AM EDT 05/10/2024 2:36 AM EDT Narrative Resulting Agency Comment Spec In Lab Tho Dickson MD CHEMISTRY ORDERABLES Performing Organization Address [facility] [[email or web address]] Co de Phone Number [facility] [place] [address] * Hepatic Function Panel (05/10/2024 2:20 AM EDT) Protein, Total 7.6 6.1 - 8.0 g/dL [facility] Albumin 3.3 3.2 - 5.2 g/dL [facility] Aspartate Aminotransferase 21 0 - 39 unit/L [facility] Alanine Aminotransferase 19 0 - 55 unit/L [facility] Alkaline Phosphatase 42 40 - 130 unit/L [facility] Bilirubin, Total 0.5 0.2 - 1.3 mg/dL [facility] Bilirubin, Direct 0.2 0.0 - 0.3 mg/dL [facility] Blood 05/10/2024 2:20 AM EDT 05/10/2024 2:36 AM EDT Narrative Resulting Agency Comment Spec In Lab Tho Dickson MD CHEMISTRY ORDERABLES Performing Organization Address [facility] [[email or web address]] Co de Phone Number [facility] [place] [address] * (ABNORMAL) Phosphorus (05/10/2024 2:20 AM EDT) Phosphorus 4.6(H) 2.5 - 4.5 mg/dL [facility] Blood 05/10/2024 2:20 AM EDT 05/10/2024 2:36 AM EDT Narrative Resulting Agency Comment Spec In Lab Tho Dickson MD CHEMISTRY ORDERABLES Performing Organization Address City/[facility]/ZIP Co de Phone Number [facility] [place] [address] * Magnesium (05/10/2024 2:20 AM EDT) Magnesium 0.85 0.69 - 1.07 mmol/L [facility] Blood 05/10/2024 2:20 AM EDT 05/10/2024 2:36 AM EDT Narrative Resulting Agency Comment Spec In Lab Tho Dickson MD CHEMISTRY ORDERABLES Performing Organization Address [facility] [[email or web address]] Co de Phone Number [facility] [place] [address] * (ABNORMAL) Basic Metabolic Panel (non-fasting) (05/10/2024 2:20 AM EDT) Pathologist [facility] Glucose 196 65 - 199 mg/dL [facility] Comment:Diabetes: >=200 mg/d L plus symptoms Blood Urea Nitrogen 71(H) 10 - 20 mg/dL [facility] Creatinine 3.94(H) 0.80 - 1.50 mg/dL [facility] Sodium 129(L) 135 - 145 mmol/L [facility] Potassium 5.3(H) 3.5 - 5.0 mmol/L [facility] Comment: Please note: ??Patients with WBC >100,000 may have falsely elevated Potassium levels. ??For accurate Potassium quantification in these patients send serum separator tube (gold top) for subsequent determinations. ??Contact the Clinical Chemistry Laboratory if there are any questions. Chloride 93(L) 98 - 107 mmol/L [facility] Carbon Dioxide 24 22 - 31 mmol/L [facility] Anion Gap 12 5 - 15 mmol/L [facility] Calcium 8.5 8.5 - 10.5 mg/dL [facility] Est Glomerular Filtration Rate 16(L) >=60 mL/min/1. 73 m?? [facility] Comment: This patient's estimated GFR [...] Dickson MD CHEMISTRY ORDERABLES Performing Organization Address [facility] Phone Number [facility] [place] [address] * (ABNORMAL) Prothrombin Time (05/10/2024 2:20 AM EDT) Prothrombin Time 27.9(H) 9.4 - 12.5 sec [facility] International Normalization Ratio 2.5 [facility] Comment: An INR <2.0 indicates [...] Lab Tho Dickson MD HEMATOLOGY ORDERABLE S Performing Organization Address [facility] [[email or web address]] Co de Phone Number [facility] [place] [address] * Type and screen ([facility]) (05/10/2024 2:20 AM EDT) ABORH Type O POSITIVE [facility] Patient BB History Not Found [facility] Expires at 2359 on: 05-13-2024 [facility] Ab Screen Interp Negative [facility] Blood 05/10/2024 2:20 AM EDT 05/10/2024 2:20 AM EDT Narrative [facility] - 05/10/2024 2:20 AM EDT This Type and Screen result is only valid at the [facility] Resulting Agency Comment Spec In Lab Tho Dickson MD BLOOD BANK LAB ORDER ANGELIQUE [facility] [place] [address] * (ABNORMAL) Lactate, whole blood, send to lab ([facility] (05/10/2024 2:20 AM EDT) Lactate WB 2.3(H) 0.5 - 2.2 mmol/L [facility] Blood 05/10/2024 2:20 AM EDT 05/10/2024 2:36 AM EDT Narrative Resulting Agency Comment Spec In Lab Tho Dickson MD CHEMISTRY ORDERABLES Performing Organization Address City/[facility]/ZIP Co de Phone Number [facility] [place] [address] documented in this encounter Visit Diagnoses Not on filedocumented in this encounter Admitting Diagnoses Diagnosis Septic shock documented in this encounter Administered Medications Inactive Administered Medications - up to 3 most recent administrations Medication Order MAR Action Action Date Dose Rate Site acetaminophen (Tylenol) tablet 975 mg 975 mg, Oral, EVERY 8 HOURS PRN, Starting on 05/10/24 at 0412, Until 05/23/24 at 1815, Pain, Fever, Maximum dose of acetaminophen is 4,000 mg from all sources in 24 hours. When ordered for pain, acetaminophen should be given even when other ordered pain medications are indicated., Routine Given 05/23/2024 8:32 AM EDT 975 mg Given 05/22/2024 4:34 AM EDT 975 mg Given 05/21/2024 1:00 PM EDT 975 mg carvediloL (Coreg) tablet 25 mg 25 [...] Given 05/23/2024 1:14 AM EDT 60 mg furosemide (Lasix) tablet 40 mg 40 mg, Oral, DAILY, First dose (after last modification) on 05/24/24 at 0900, Until Discontinued, Routine glucagon (Glucagen) (1 mg/mL) injection solution 1 [...] weight of tube = 37.5 grams.), Routine insulin glargine-ygfn (Semglee) (100 unit/mL) subcutaneous injection vial 14 Units 14 Units, Subcutaneous, NIGHTLY, First dose (after last modification) on 05/19/24 at 2100, Until Discontinued, Routine Given 05/22/2024 [...] HOURS, First dose (after last modification) on Sun05/22/24 at 1230, Until Discontinued, Routine Given 05/23/2024 12:27 PM EDT 3 mLs Given 05/22/2024 6:43 PM EDT 3 mLs lactobacillus acidophilus capsule 1 capsule 1 capsule, Oral, DAILY, First dose on Sun05/18/24 at 0900, Until Discontinued, Routine Given 05/23/2024 8:32 AM EDT 1 capsule Given 05/22/2024 8:19 AM EDT 1 capsule Given 05/21/2024 1:00 PM EDT 1 capsule melatonin tablet 6 mg 6 mg, Oral, NIGHTLY PRN, Starting on Sun05/12/24 at 1550, Until Sun05/23/24 at 1815, Insomnia, Routine oxyCODONE (Roxicodone) tablet 5 mg 5 mg, Oral, EVERY 4 HOURS PRN, Starting on Sun05/14/24 at 1352, Until Sun05/23/24 at 1815, Pain, Routine Given 05/20/2024 5:47 PM EDT 5 mg Given 05/19/2024 6:45 AM EDT 5 mg Given 05/18/2024 6:20 PM EDT 5 mg pantoprazole EC (Protonix) tablet 40 mg 40 mg, Oral, 2 TIMES DAILY, First dose on Sun05/23/24 at 0900, Until Discontinued, DO NOT CRUSH OR OPEN, Routine Given 05/23/2024 8:33 AM EDT 40 mg sevelamer carbonate (Renvela) tablet 800 mg [...] Given 05/23/2024 12:27 PM EDT 650 mg documented in this encounter Active and Recently Administered Medications Times are shown in EDT. Scheduled Medication Order 05/21/2024 05/22/2024 05/23/2024 carvediloL (Coreg) tablet 25 mg 25 mg, Oral, 2 TIMES DAILY, First dose (after last modification) on Sun05/13/24 at 2100, Until Discontinued, Routine 1259 (Given - Provider: Yg Prince RN)2040 (Given - Provider: Alyssa Villalobos RN) 0819 (Given - Provider: Trice Zhao RN)1318 (MAR Hold - Provider: Admin Adt - Reason: Transfer to a Procedural area)175 (DEC Unhold - Provider: Admin Adt)2110 (Given - Provider: Saima Quinteros RN) 0832 (Given - Provider: Juan José Lai, JACKIE) cefTRIAXone (Rocephin) 2 g vial attach to sodium chloride 0.9% 50 mL Mini-Bag Plus 2 g, Intravenous, EVERY 24 HOURS, First dose on Sun05/14/24 at 1600, Until Discontinued, Administer over 30 Minutes, Indication for (Active or Suspected): Bone/Joint 1712 (New Bag - Provider: Inez Boswell, JACKIE)1742 (Stopped - Provider: Yg Prince, JACKIE) 1318 (DEC Hold - Provider: Admin Adt - Reason: Transfer to a Procedural area)175 (DEC Unhold - Provider: Admin Adt)183 (Restarted - Provider: Trice Zhao RN) 1600 (Due)1815 (Due: Stopped) dilTIAZem (Cardizem) tablet 60 mg 60 mg, Oral, EVERY 6 HOURS SCHEDULED, First dose on Sun05/11/24 at 0900, Until Discontinued, HOLD for SBP <90 or HR <60, Routine 0612 (Given - Provider: Pretty Ramirez RN)1300 (Given - Provider: Yg Prince RN)1712 (Given - Provider: Inez Boswell, JACKIE)2330 (Given - Provider: Alyssa Villalobos RN) 0534 (Given - Provider: Alyssa Villalobos RN)1246 (Given - Provider: Trice Zhao, JACKIE)131 (DEC Hold - Provider: Admin Adt - Reason: Transfer to a Procedural area)175 (DEC Unhold - Provider: Admin Adt)1842 (Given - Provider: Trice Zhao RN) 0114 (Given - Provider: Saima Quinteros, JACKIE)0600 (Given - Provider: Saima Quinteros, JACKIE)1227 (Given - Provider: Juan José Lai, JACKIE) epoetin leah-epbx (Retacrit) injection 10,000 Units 10,000 Units, Subcutaneous, DAILY, 3 doses, First dose on Sun05/21/24 at 1800, Last dose on Sun05/23/24 at 0900, Routine, What is the indication of use? Chronic Kidney Disease (CKD) 2038 (Given - Provider: Alyssa Villalobos RN) 0900 (Due)1318 (DEC Hold - Provider: Admin Adt - Reason: Transfer to a Procedural area)1758 (DEC Unhold - Provider: Admin Adt) 0831 (Given - Provider: Juan Joés Lai RN) furosemide (Lasix) tablet 40 mg (CANCELED) 40 mg, Oral, EVERY MORNING, First dose on Sun05/21/24 at 1115, Until Discontinued, Routine 1115 (Due) 0641 (Given - Provider: Alyssa Villalobos RN)1318 (DEC Hold - Provider: Admin Adt - Reason: Transfer to a Procedural area)175 (DEC Unhold - Provider: Admin Adt) 06 (Given - Provider: Saima Quinteros, JACKIE) furosemide (Lasix) tablet 40 mg 40 mg, Oral, DAILY, First dose (after last modification) on 05/24/24 at 0900, Until Discontinued, Routine insulin glargine-ygfn (Semglee) (100 unit/mL) subcutaneous injection vial 14 Units 14 Units, Subcutaneous, NIGHTLY, First dose (after last modification) on 05/19/24 at 2100, Until Discontinued, Routine 2039 (Given - Provider: Alyssa Villalobos RN) 131 (DEC Hold - Provider: Admin Adt - Reason: Transfer to a Procedural area)1758 (DEC Unhold - Provider: Admin Adt)2109 (Given - Provider: Saima Quinteros, JACKIE) insulin lispro (HumaLOG;Admelog) (100 unit/mL) subcutaneous injection [...] Adt) 0832 (Given - Provider: Juan José Lai, RN)1257 (Given - Provider: Juan José Lai, RN) insulin lispro (HumaLOG;Admelog) (100 unit/mL) subcutaneous [...] Routine 0000 (Not Given - Provider: Pretty Ramirez RN - Reason: Order parameters not met)0354 [...] HOURS, First dose (after last modification) on Plaza 05/18/24 at 1430, Until Discontinued, Routine 0258 [...] Alyssa Villalobos RN)0641 (Given - Provider: Alyssa Villalobos RN) ipratropium-albuteroL (Duoneb) 0.5 mg-3 mg(2.5 mg base)/3 mL nebulizer solution 3 mL 3 mL, Nebulization, EVERY 6 HOURS, First dose (after last modification) on Blank 05/22/24 at 1230, Until Discontinued, Routine 1230 (Not Given - Provider: Trice Zhao RN - Reason: Order parameters not met)1318 (MAR Hold - Provider: Admin Adt - Reason: Transfer to a Procedural area)1759 (DEC Unhold - Provider: Admin Adt)1843 (Given - Provider: Trice Zhao, RN) 0030 (Not Given - Provider: Saima Quinteros, RN - Reason: Patient/family refused)0630 (Not Given - Provider: Saima Quinteros RN - Reason: Patient/family refused)1227 (Given - Provider: Juan José Lai, RN) lactobacillus acidophilus capsule 1 capsule 1 capsule, Oral, DAILY, First dose on Sun05/18/24 at 0900, Until Discontinued, Routine 1300 (Given - Provider: Yg Prince RN) 0819 (Given - Provider: Trice Zhao, JACKIE)1318 (DEC Hold - Provider: Admin Adt - Reason: Transfer to a Procedural area)1759 (DEC Unhold - Provider: Admin Adt) 0832 (Given - Provider: Juan José Lai, JACKIE) lidocaine (Xylocaine) 1% (10 mg/mL) injection 10 [...] (Recovery-Hospital Unit) 1733 (Given - Provider: Irene Bravo, JACKIE) pantoprazole (Protonix) injection 40 mg (CANCELED) 40 mg, Intravenous, 2 TIMES DAILY, First dose (after last modification) on Sun05/21/24 at 0945, Until Discontinued, Reconstitute with 10 mL of normal saline to a concentration of 4 mg/mL and inject slowly over 2 minutes. 1301 (Given - Provider: Yg Prince RN)203 (Given - Provider: Alyssa Villalobos RN) 0819 (Given - Provider: Triec Zhao RN)131 (DEC Hold - Provider: Admin Adt - Reason: Transfer to a Procedural area)1758 (DEC Unhold - Provider: Admin Adt)2108 (Given - Provider: Saima Quinteros RN) pantoprazole EC (Protonix) tablet 40 mg 40 mg, Oral, 2 TIMES DAILY, First dose on Sun05/23/24 at 0900, Until Discontinued, DO NOT CRUSH OR OPEN, Routine 0833 (Given - Provider: Juan José Lai RN) sevelamer carbonate (Renvela) tablet 800 mg 800 mg, Oral, 3 TIMES DAILY WITH MEALS, First dose on Sun05/23/24 at 1230, Until Discontinued, DO NOT CRUSH OR OPEN, Routine 1227 (Given - Provider: Juan José Lai RN) sodium bicarbonate tablet 650 mg 650 mg, Oral, 2 TIMES DAILY, First dose on Sun05/23/24 at 1230, Until Discontinued, Routine 1227 (Given - Provider: Juan José Lai RN) PRN Medication Order 05/21/2024 05/22/2024 05/23/2024 acetaminophen [...] Adt - Reason: Transfer to a Procedural area)1758 (DEC Unhold - Provider: Admin Adt) 0832 [...] JACKIE)1100 (Given - Provider: Sky Shelton RN) glucagon [...] administering the next dose. , Routine 1318 (DEC Hold - Provider: Admin Adt - Reason: Transfer to a Procedural area)1759 (DEC Unhold - Provider: Admin Adt) glucose (Glutose) [...] - Reason: Transfer to a Procedural area)175 ([facility] Unhold - Provider: Admin Adt) midazolam (pf) [...] RN)1100 (Given - Provider: Sky Shelton RN) oxyCODONE (Roxicodone) tablet 5 mg 5 mg, Oral, EVERY 4 HOURS PRN, Starting on Sun05/14/24 at 1352, Until Sun05/23/24 at 1815, Pain, Routine 1318 ([facility] Hold - Provider: Admin Adt - Reason: Transfer to a Procedural area)175 (DEC Unhold - Provider: Admin Adt) simethicone (Gas-X Chew) 80 mg chewable tablet 80 mg 80 mg, Oral, EVERY 6 HOURS PRN, Starting on Sun05/15/24 at 1812, Until Sun05/23/24 at 1815, Cramping, Routine 1318 (DEC Hold - Provider: Admin Adt - Reason: Transfer to a Procedural area)175 (DEC Unhold - Provider: Admin Adt) Linked [...] documented as of this encounter Care Teams Business Support Relationship 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
--- OUTSIDE RECORDS SUMMARY | 2024-06-03 15:25 | XMS_ITS | Encounter Summary ---
[place] [address] Care Team Providers Care Spark Plug Assembler Name Role Phone None Primary Care Provider Unavailabl e Reason for Visit * Auth/Cert (Routine) Specialty Diagnoses / Procedures Referred By Contac t Referred To Contact Diagnoses Septic shock septiic shock Procedures ER Tho Aquino MD [facility] [address] PUL[place]ARY [place] [address] [facility] Referral ID Status Reason Start Date Expiration Date Visits Re quested Visits Authorized [id number] 1 1 Encounter Details Date Type Department Care Team (Late st Contact Info) Description 05/14/2024 10:37 AM EDT Anesthesia Event [place] [id number] Gertrudis Kimball MD [facility] [address] ANESTHESIOLOGY [place] [address] Kimberlee Fontenot MD [facility] ANESTHESIOLOG[place] [address] Anesthesia Record Procedure Summary Procedure Name Responsible Anesthesiologist Anesthesia Start Time Anesthesia Stop Time AMPUTATION, TRANSMETATARSAL TOE, ONE TOE (WRVU 6.64) (Right: Foot) Gertrudis Kimball MD 05/14/24 1037 05/14/24 1219 Events Date Time Event Comment 05/14/2024 1029 1037 AN Verify 1037 Start 1038 An Start Data 1049 An Induction 1051 An Intubation 1054 Anesthesia Ready 1115 Procedure Start 1157 Procedure Stop 1201 Extubation/LMA Out 1204 an stop data 1219 Recovery or ICU Handoff Teresita ent care was transferred to the destination unit staff after review of the patient's medical history, current anesthetic/surgical status and plan, according to the Provider Handoff Checklist. 1219 Stop Meds Name Total fentaNYL 100 mcg lidocaine IV 30 mg propofoL 300 mg PHENYLephrine 80 mcg ondansetron 4 mg dexAMETHasone 8 mg vancomycin (Vancocin) 1.75 gram in sodiu m chloride 0.9% 500 mL infusion 0 g albuterol inhaler 2 puff lactated ringers 500 mL * Agents Name O2 * Blood No blood administrations on file. Lines, Drains, and Airways Type Details Placement Removal Incision 05/14/24; 1048; Righ t; dorsal 05/14/24 1048 by Caren Cabral RN PIV 05/10/24; (osh); 18 gauge; median cubital vein (antecubital fossa), right; 05/15/24; 0005 05/10/24 0000 by Williams Hines RN 05/15/24 0005 by Christine Ronquillo RN PIV 05/10/24; (osh); 18 gauge; median cubital vein (antecubital fossa), left; 05/23/24; 1531 05/10/24 0000 by Williams Hines RN 05/23/24 1531 by Juan José Lai RN Wound 05/10/24; 0230; Righ t; dorsal; 05/14/24; 1140 05/10/24 0230 by Kimberly Leslie RN 05/14/24 1140 by Savannah Sy RN Supraglottic Mask Ventilation: Masood belcher (1); LMA Type: iGel; LMA Size: 5; Inserted by: Hiro Garcia CRNA; Removal Date: 05/14/24; Removal Time: 1201 05/14/24 1051 by Fátima Garcia CRNA 05/14/24 1201 by Fátima Garcia CRNA PIV 05/14/24; 1236; 22 g auge; metacarpal vein (top of hand), right; 05/23/24; 1531 05/14/24 1236 by Opal Stern RN 05/23/24 1531 by Juan José Lai RN documented in this encounter Social History Tobacco Use Types Packs/Day Years Used Date Smoking Tobacco: Former Smokeless Tobacco: Never DH IPV Inpatient Questions Answer Date Recorded Does [...] OR Notes * Anesthesia Postprocedure Evaluation - Gertrudis Kimball MD - 05/14/2024 3:37 PM EDT Department of Anesthesiology Post-procedure Note Patient: Jossy Shanks Procedure Summary Date: 05/14/24 Room / Location: [facility] OR [address] [place] [address] MAIN OR Anesthesia Start: 1037 Anesthesia Stop: 1219 Procedure: AMPUTATION, TRANSMETATARSAL TOE, ONE TOE (WRVU 6.64) (Right: Foot) Diagnosis: (right second toe osteomyelitis) Surgeons: Elkin Garcia MD Responsible Provider: Gertrudis Kimball MD Anesthesia Type: general ASA Status: 3 All Anesthesia Providers: Anesthesiologist: Gertrudis Kimball MD [employer]PER[employer] ENGINEER: Fátima Garcia CRNA Vitals Value Taken Time BP 142/72 05/14/24 1415 Temp 36.4 ??C (97.5 ??F) 05/14/24 1415 Pulse 96 05/14/24 1427 Resp 21 05/14/24 1430 SpO2 96 % 05/14/24 1442 Pain Level 3 05/14/24 1430 Vitals shown include unfiled device data. Patient Location: PACU/[facility] Level of Consciousness: Conscious but Sleepy Pain Management: Satisfactory Analgesia PONV: None Cardiovascular Status: At Baseline Respiratory Status: At Baseline Postoperative Fluid Status: Intravascular EUvolemia Possible Anesthetic Complications: NONE apparent at time of evaluation Final Primary Anesthesia Type: General (The anesthetic type performed was the same as planned.) Comments: * Anesthesia Preprocedure Evaluation - Gertrudis Kimball MD - 05/14/2024 9:24 AM EDT Pre-Anesthesia Evaluation for: Jossy Shanks a 69 y.o. male. Procedure(s): AMPUTATION, TRANSMETATARSAL TOE, ONE TOE (WRVU 6.64) Patient Active Problem List Diagnosis Date Noted ??? *Septic shock 2024 ??? Degenerative lumbar spinal stenosis 09/25/2017 No past medical history on file. No past surgical history on file. Social History Tobacco Use ??? Smoking status: Former ??? Smokeless tobacco: Never Substance Use Topics ??? Alcohol use: Not on file Social History Substance and Sexual Activity Drug Use Not on file No Known Allergies Medications: MAR and/or home medications have been reviewed. Physical Exam: Preprocedure Vitals Current as of 05/14/24 0924 BP: 145/81 Pulse: Resp: 17 SpO2: 93 Temp: 36.6 ??C (97.9 ??F) Height: 190.5 cm (6' 3) (05/10/24) Weight: 157.5 kg (347 lb 3.6 oz) (05/11/24) BMI: 43.40 IBW: 84.5 kg (186 lb 4.6 oz) Last edited 05/14/24 0753 by ES Airway Assessment: Mallampati: III TM distance: >3 FB Neck ROM: limited Bearded, large neck Cardiovascular Assessment: Rhythm: regular Rate: normal system normal Pulmonary Assessment: unlabored breathing pulmonary exam normal Dental Assessment: Misc Assessment: Patient is wearing No contact(s). IV access: Peripheral line Last Filed Perioperative Cognitive Screening Value Time User 4AT TOTAL Score: 0 05/13/2024 7:25 PM Pretty Ramirez, RN Anesthesia Plan: ASA 3 emergent general, with a(n) intravenous induction Jossy Shanks is a 69 y.o. male with R second toe amputation presenting for R second toe amputation. Admitted on 05/10 for R LE cellulitis PMHx: BMI 43, HTN, HFpEF, CKD (baseline Cr ~1.5), insulin dependent DM, COPD (not on home O2), ratecontrolled Afib (Xarelto at home - currently on heparin, dilt, coreg) Allergies: No Known Allergies NPO adequate. Anesthesia Hx: No previous anesthesia records in Labs (reviewed) WBC 15.5 Hb 10.8 Plts 190 Cr 1.56 EKG 05/10 A.fib Plan is for GA with ETT vs LMA Kimberlee Fontenot MD 05/14/2024 Region - Other Informed Consent: Anesthetic plan and risks discussed with patient. Plan discussed with [employer]PER[employer] ENGINEER. Anesthesia Screening documented in this encounter Plan of Treatment Upcoming Encounters Date Type Department Care Team (Late st Contact Info) Description 06/10/2024 10:30 AM EDT Office [place] [address] Elkin Garcia MD [facility] [address] ORTHOPAEDIC [place] [address] documented as of this encounter Visit Diagnoses Not on filedocumented in this encounter Administered Medications Inactive Administered Medications - up to 3 most recent administrations Medication Order MAR Action Action Date Dose Rate Site albuteroL 90 mcg/actuation inhaler Inhalation, PRN, Starting on Sun05/14/24 at 1158, Until Sun05/14/24 at 1221, Anesthesia Intra-op, Routine Given 05/14/2024 11:58 AM EDT 2 puffs dexAMETHasone (Decadron) injection Intravenous, PRN, Starting on Sun05/14/24 at 1125, Until Sun05/14/24 at 1219, Anesthesia Intra-op, Routine Given 05/14/2024 11:25 AM EDT 8 mg fentaNYL (pf) (50 mcg/mL) multi-dose injection Intravenous, PRN, Starting on Sun05/14/24 at 1049, Until Sun05/14/24 at 1219, Anesthesia Intra-op, Routine Given 05/14/2024 11:28 AM EDT 25 mcg Given 05/14/2024 11:15 AM EDT 25 mcg Given 05/14/2024 10:49 AM EDT 50 mcg lactated ringers infusion Intravenous, CONTINUOUS PRN, Starting on Sun05/14/24 at 1038, Until Sun05/14/24 at 1219, Anesthesia Intra-op New Bag 05/14/2024 10:38 AM EDT lidocaine (pf) (Xylocaine) (20 mg/mL) 2% injection syringe Intravenous, PRN, Starting on Sun05/14/24 at 1049, Until Sun05/14/24 at 1219, Anesthesia Intra-op, Routine Given 05/14/2024 10:49 AM EDT 30 mg ondansetron (pf) (Zofran) (2 mg/mL) injection Intravenous, PRN, Starting on Sun05/14/24 at 1123, Until Sun05/14/24 at 1219, Anesthesia Intra-op, Routine Given 05/14/2024 11:23 AM EDT 4 mg PHENYLephrine in NS (PF) (RACHEL-SYNEPHRINE) 0.8 mg/10 mL (80 mcg/mL) multi-dose injection Syringe Intravenous, PRN, Starting on Sun05/14/24 at 1117, Until Sun05/14/24 at 1219, Anesthesia Intra-op, Routine Given 05/14/2024 11:17 AM EDT 80 mcg propofoL (Diprivan) 10 mg/mL bolus injection (Anesthesia) Intravenous, PRN, Starting on Sun05/14/24 at 1049, Until Sun05/14/24 at 1219, Anesthesia Intra-op Given 05/14/2024 10:51 AM EDT 100 mg Given 05/14/2024 10:49 AM EDT 200 mg documented in this encounter Care Teams Spark Plug Assembler Relationship 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
--- OUTSIDE RECORDS SUMMARY | 2024-06-03 15:25 | XMS_ITS | Encounter Summary ---
Author Organization [facility] [place] [address] Care Team Providers Care Slubber Hand Name Role Phone None Primary Care Provider Unavailabl e Encounter Details Date Type Department Care Team (Latest Contact Info) Description 05/21/2024 Travel Social History Tobacco Use Types Packs/Day Years [...] 10:30 AM EDT Office [place] [address] Elkin Garcia MD [facility] [place] [address] documented as of this encounter Visit Diagnoses Not on filedocumented in this encounter Care Teams Slubber Hand Relationship 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
--- OUTSIDE RECORDS SUMMARY | 2024-06-03 15:26 | XMS_ITS | Encounter Summary ---
Author Organization Formerly [facility], 1928–1983 Address [facility] [place] [address] Care Team Providers Care Grain Oilseed Or Pasture Farm Worker Name Role Phone None Primary Care Provider Unavailabl e Encounter Details Date Type Department Care Team (Latest Contact Info) Description 11/26/2017 12:39 PM EST - 11/26/2017 11:59 PM [facility] Hospital Encounter XRay at [address] [place] [address] Navjot Castillo MD [facility] [place] [address] Spinal stenosis of lumbar region, unspecified whether neurogenic claudication present Discharge Disposition: Home Social History Tobacco Use Types Packs/Day Years Used Date Smoking Tobacco: Former Smokeless Tobacco: Never Sex and Gender Information Value Date Recorded Sex Assigned at Not on file Gender Identity Not on file Sexual Orientation Not on file documented as of this encounter Medications at Time of Discharge Medication Sig Dispensed Refills Start Date End Date furosemide (LASIX) 20 mg Tablet Take 40 mg by mouth daily. 0 11/08/2017 DILT-XR 240 mg Capsule,Degradable Cnt Release Take 240 mg by mouth daily. 0 11/08/2017 multivitamin (THERAGRAN) Tablet Take 1 tablet by mouth daily. acetaminophen (TYLENOL) 650 mg Tablet Sustained Release Take 1,300 mg by mouth every 8 hours as needed for Pain. Do not exceed 6 tabs in 24 hours meTOPROLOL (LOPRESSOR) 100 mg Tablet Take 100 mg by mouth 2 times daily. 0 11/20/2017 05/10/2024 losartan (COZAAR) 50 mg Tablet Take 50 mg by mouth daily. 0 11/06/2017 05/10/2024 XARELTO 15 mg Tablet Take 15 mg by mouth daily. 0 11/14/2017 05/23/2024 traMADol (ULTRAM) 50 mg Tablet Take 50 mg by mouth 4 times daily as needed. 0 07/31/2017 05/10/2024 Magnesium 200 mg Tablet Take 400 mg by mouth daily. 05/23/2024 documented as of this encounter Plan of Treatment Upcoming Encounters Date Type Department Care Team (Late st Contact Info) Description 06/10/2024 10:30 AM EDT Office Visit [place] [address] Elkin Garcia MD [facility] [place] [address] documented as of this encounter Procedures Procedure Name Priority Date/Time Associated Diagnosis Comments XR LUMBAR SPINE 2 OR 3 VIEWS Routine 11/26/2017 12:56 PM EST Spinal stenosis of lumbar region, unspecified whether neurogenic claudication present documented in this encounter Results * XR Lumbar Spine 2 Or 3 Views (Generic) (11/26/2017 12:56 PM EST) Anatomical Region Laterality Modality L-spine N/A Digital Radiogra phy Impressions 11/26/2017 1:11 PM EST L2 and L4 lumbar vertebral body compression deformities with moderate spondylosis and. Moderately advanced L5-S1 degenerative disc disease. Narrative 11/26/2017 1:11 PM EST EXAMINATION: XR LUMBAR SPINE 2 OR 3 VIEWS (GENERIC) CLINICAL HISTORY: AP lat flex/ext 3 views to eval lumbar spinal stenosis TECHNIQUE: AP, flexion and extension lateral COMPARISON: None FINDINGS: Dextrolumbar scoliosis with dextro rotatory component apex at L4-L5.. Prominent left lateral L4-L5 left lateral disc osteophyte complexes. Mild central L2 and L4 vertebral body compression deformity. Moderately advanced lumbar spondylosis. Moderate L5-S1 disc space narrowing and. Preserved alignment between flexion and extension. Obliques were not performed for the assessment of neuroforaminal stenosis. Procedure Note Monica Coates MD - 11/26/2017 EXAMINATION: XR LUMBAR SPINE 2 OR 3 VIEWS (GENERIC) CLINICAL HISTORY: AP lat flex/ext 3 views to eval lumbar spinal stenosis TECHNIQUE: AP, flexion and extension lateral COMPARISON: None FINDINGS: Dextrolumbar scoliosis with dextro rotatory component apex at L4-L5.. Prominent left lateral L4-L5 left lateral disc osteophyte complexes.Mild central L2 and L4 vertebral body compression deformity. Moderatelyadvanced lumbar spondylosis. Moderate L5-S1 disc space narrowing and. Preservedalignment between flexion and extension. Obliques were not performed for theassessment of neuroforaminal stenosis. IMPRESSION L2 and L4 lumbar vertebral body compression deformities with moderate spondylosis and. Moderately advanced L5-S1 degenerative disc disease. Navjot Csatillo MD IMG DX ORDERABLES documented in this encounter Visit Diagnoses Diagnosis Spinal stenosis of lumbar region, unspecified whether neurogenic claudication present documented in this encounter Care Teams Grain [employer] Or Pasture Farm 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
--- OUTSIDE RECORDS SUMMARY | 2024-06-03 15:26 | XMS_ITS | Encounter Summary ---
Author Organization Count Includes [facility] [address] Care Team Providers Care Sales Order Coordinator Name Role Phone Unknown Primary Care Provider Unavailabl e Reason for Referral * Consultation (Routine) - Closed Specialty Diagnoses / Procedures Referred By Contac t Referred To Contact Orthopaedics Diagnoses Degenerative lumbar spinal stenosis Darin Gonzáles MD [facility] [place] [address] Navjot Castillo MD [facility] [place] [address] Referral ID Status Reason Start Date Expiration Date V isits Requested Visits Authorized [id number] Closed Consult, Test & Treat 09/25/2017 09/25/2018 1 1 Reason for Visit * Reason Onset Date Comments Medication Refill 09/25/2017 Encounter Details Date Type Department Care Team (Late st Contact Info) Description 09/25/2017 Refill Pain Management at [place] [phone] Darin Gonzáles MD [facility] [place] [address] Degenerative lumbar spinal stenosis Social History Tobacco Use Types Packs/Day Years Used Date Smoking Tobacco: Never Assessed Sex and Gender Information Value Date Recorded Sex Assigned at Not on file Gender Identity Not on file Sexual Orientation Not on file documented as of this encounter Plan of Treatment Upcoming Encounters Date Type Department Care Team (Late st Contact Info) Description 06/10/2024 10:30 AM EDT Office [place] [address] Elkin Garcia MD [facility] [place] [address] Scheduled Referrals Name Type Priority Associated Diagnoses Orde r Schedule Referral to Spine Center Outpatient Referral Routine Degenerative lumbar spinal stenosis Ordered: 09/25/2017 documented as of this encounter Visit Diagnoses Diagnosis Degenerative lumbar spinal stenosis Spinal stenosis, lumbar region, without neurogenic claudication documented in this encounter Care Teams Sales Order Coordinator Relationship Specialty Start Date End Date Unknown None PCP - General 07/25/17 11/25/17 documented as of this encounter
--- OUTSIDE RECORDS SUMMARY | 2024-06-03 15:26 | XMS_ITS | Encounter Summary ---
[place] [address] Care Team Providers Care Soil Chemist Name Role Phone None Primary Care Provider Unavailabl e Reason for Visit * Auth/Cert (Routine) Specialty Diagnoses / Procedures Referred By Contac t Referred To Contact Diagnoses Septic shock septiic shock Procedures ER Tho Aquino MD [facility] [place] [address] [facility] Referral ID Status Reason Start Date Expiration Date Visits Re quested Visits Authorized [id number] 1 1 Encounter Details Date Type Department Care Team (Late st Contact Info) Description 05/14/2024 10:00 AM EDT - 05/14/2024 11:24 AM EDT Surgery [place] [id number] Elkin Garcia MD [facility] OR[place]OP[place] [address] AMPUTATION, TRANSMETATARSAL TOE, ONE TOE (WRVU 6.64) Social History Tobacco Use Types Packs/Day Years Used Date Smoking Tobacco: Former Cigarettes 14 0.6 S tarted: 2023 Smokeless Tobacco: Never Tobacco Cessation:Counseling Given: Not Answered Alcohol Use Standard Drinks/Week Comments Yes 0 (1 standard drink = 0.6 oz pur e alcohol) 3-4 PER [facility] Inpatient Questions Answer Date Recorded Does [...] Sign Reading Time Taken Comments Blood Pressure 142/80 05/14/2024 9:50 AM EDT Pulse 109 05/14/2024 9:50 AM EDT Temperature 37.2 ??C (99 ??F) 05/14/2024 9:50 AM EDT Respiratory Rate 18 05/14/2024 9:50 AM EDT Oxygen Saturation 95% 05/14/2024 9:50 AM EDT Inhaled Oxygen Concentration - - Weight 157.5 kg (347 lb 3.6 oz) 05/14/2024 9:50 AM EDT Height 190.5 cm (6' 3) 05/14/2024 9:50 AM EDT Body Mass Index 46.24 05/14/2024 9:50 AM EDT documented in this encounter Discharge Summaries * Saba Spears MD - 05/22/2024 8:18 AM EDT Patient Name: Jossy Shanks Patient Age: 69 y.o. Language: Vincentian Race: White Ethnicity: Not nor Admit date: [...] please contact your inpatient physician through the [facility] Desk Editor . Issues afterhours and on weekends will [...] Afib rate controlled, CKD (Cr 1.9 in 2020), COPD not on home oxygen, HFpEF, HTN who presented to [facility] for rt LE cellulitis, transferred to [facility] for septic shock. At end of March he dropped cylinder block on rt foot, bleeding and painful. Kept bandaged and sock on it, same sock on it for the last week, reports sock became fused to wound. Denies paresthesia. Wasable to walk w/out difficulty. In last several days erythema and edema spread upper Rt LE to knee. Fevers & chills for last 24hrs. [place] lightheaded, weak, & couldn't get out of [...] prior to OSH departure. On arrival to [facility]: HR 96, o2 sat mid 90s on [...] care, the same day as transfer to [facility]. On the general medicine floor, he was [...] border dressing. (Melgisorb Ag 6x6 PS # [id number]) (Melgisorb Ag 4x4 PS # [id number]) Sacrum/ischium: open to air, utilize Z-guard if [...] Labs 05/23/24 0946 05/23/24 0119 05/22/24 1118 05/22/2418 WBC 12.66* 12.66* -- 14.70* HGB 7.7* [...] 05/10/2024 2:37 AM) Result Value WORKSTATION ID [id number] Impression Bibasilar atelectasis. Thank you for letting us participate in the care of this patient. If you are a health care provider and have any questions regarding this report, please contact the number below. For patients who have questions please contact the health inspector health care facilities that requested your imaging first. Foot wwo Contrast Right (Exam End: 05/10/2024 5:51 AM) Result Value WORKSTATION ID [id number] Impression 1. Soft tissue irregularity of the [...] who have questions please contact the health inspector health care facilities that requested your imaging first. Retroperitoneal Complete (Exam End: 05/20/2024 10:36 AM) Result Value WORKSTATION ID [id number] Impression 1. Very limited exam secondary to [...] who have questions, please contact the health inspector health care facilities that requested your imaging first. Teofilo Ruiz, Staff Physician Electronically Signed Final Report 05/20/2024 11:36 am Pending Studies and Lab Data: Discharge Conditions/Prognosis: s/p Left 2nd toe amputation, recovering, requiring rehab. Back to baseline. Discharge to: [facility] Updated Allergies/ADRs: No Known Allergies Immunizations [...] Center 06/03/2024 2:00 PM Lu Mcfarland APRN [facility] ID 5C [facility] 06/05/2024 4:00 PM Elkin Garcia MD [facility] ORTH 3C [facility] Your Discharge Medication List Your Medications New [...] as much as possible. Call your doctor ([phone]) if you develop: Fever greater than 100.5 Severe nausea or vomiting Increasing pain that is not controlled by pain medications Increasing redness, swelling, or drainage from incisions Change in sensation FOLLOW-UP APPOINTMENTS: 1. You will have follow-up appointments at [facility] as indicated below in Future Appointment and Orders. 2. You will need to have x-rays prior to your follow-up appointment listed below. Please come to Radiology, desk 3T, 1 hour BEFORE that appointment for these x-rays. Future Appointments Date Time Provider Department Center 06/03/2024 2:00 PM Lu Mcfarland APRN [facility] ID 5C [facility] 06/05/2024 4:00 PM Elkin Garcia MD [facility] ORTH 3C [facility] If you have questions or concerns: Sunday through Sunday, 8 AM - 5 PM, please call Dr. Saba Spears MD's office at . If it is after 5 PM, the weekend, or holidays, please call and ask to speak with theOrthopedic resident on-call. General Instructions Upper GI Endoscopy: [...] the day after the procedure, use an pocr-can-tbmalci spray to numb your throat. Sucking on [...] occurs, please contact your Doctor. Please call [phone] before 8pm Mon-Fri with problems, questions or concerns. If you call after 8pm or on weekends, call the Hospital at [phone] and ask to speak to the Automat Car Attendant chain person and the float operator will contact that person for you. When should you call for help? Call [phone] anytime you think you may need emergency [...] any problems. Where can you learn more? [facility] View your After Visit Summary and more online at [email or web address] If you would like to provide feedback about your hospital experience, please call the Office of Patient and Family Relations at . If you have received this After Visit Summary in error, please immediately return it in person to the department, or notify the [facility] Privacy Office by calling toll free at between the hours of 8AM and 5PM to arrange for our retrieval of the documents at no cost to you. Content Version: 12.2 ?? [phone] [employer]. Care instructions adapted under license by [employer]. If you have questions about a medical condition or this instruction, always ask your healthcare professional. [employer] disclaims any warranty or liability for your [...] is during regular working hours, please call [phone]. If it is after 5 pm or a weekend or holiday, call [phone] and ask for the Sausage Machine Operator chain person for Interventional Radiology. You have received medication [...] PM Lu Mcfarland APRN Infectious Disease at [facility] Arrive at: [facility] [address]C [phone] 06/05/2024 4:00 PM Elkin Garcia MD Orthopaedics at [facility] Arrive at: [address] [address] [phone] Future Orders Complete By Expires OPAT: Order / Recommendation for Post Discharge IV Antibiotic Management [HYF376 CPT(R)] As directed Process Instructions: If no progress note charted, please enter Clinical details in comments. Scheduling Instructions: Comments: - If this order was signed greater than 72 hours prior to [facility] discharge, please call to confirm the accuracy of this order. Please Fax all results to: OPAT Program Infectious Disease Section [facility] [place], [place] [address] FAX: - After hours, please contact the Infectious Disease Physician chain person at . - Line care instructions - see flush/heparin orders. Facilities may follow organizational policies/practices regarding heparin. - penitentiary for medication administration/electric repair supervisor and catheter care/maintenance authorized. HD Line care [...] every Sunday fax results to OPAT at [phone]. Please draw labs off PICC line. Please see OPAT order for lab draw details. Please RN visit for IV ABX teaching and ongoing assessment. Retirement for Medication Administration/Hookup and catheter care/maintenance: - Teach Patient/Caregiver goals/self-monitoring/therapy administration to independence per the Nursing Care Plan. - penitentiary visit frequency; initial, weekly and 2 PRN [...] 05/20/2024 11:36 am) PATIENT INFO: ID #: [id number].: [id number] (69 yrs)(M) Name: JOSSY SHANKS Visit Date: 05/20/2024 10:34 am PERFORMED BY: Attending: Teofilo Ruiz MD Resident: Trinidad Light MD Performed By: Lulu Shin RDMS Referred By: SABA SPEARS Location: [place] SERVICE(S) PROVIDED: URETRO - Retroperitoneal Complete - [id number] INDICATIONS: CKD, increase BUN TECHNIQUE/SCAN QUALITY: Scan [...] patients whohave questions, please contact the health inspector health care facilities that requested your imaging first. Teofilo Ruiz, Staff Physician Electronically Signed Final Report 05/20/2024 11:36 am My clinical question: Patient to establish for CKD management Do not type below here [id number]_CKD Questions: My question or request is: See comment Provider Contact Information: None None None Discharge References/Attachments Low Phosphorus Foods: General Info (Vincentian) Low Potassium Foods: General Info (Vincentian) documented in this encounter Discharge Instructions * [...] the day after the procedure, use an byxw-cho-gbzsfyu spray to numb your throat. Sucking on [...] occurs, please contact your Doctor. Please call [phone] before 8pm Mon-Fri with problems, questions or concerns. If you call after 8pm or on weekends, call the Hospital at [phone] and ask to speak to the Automat Car Attendant chain person and the float operator will contact that person for you. [...] any problems. Where can you learn more? [facility] View your After Visit Summary and more online at [email or web address] If you would like to provide feedback about your hospital experience, please call the Office of Patient and Family Relations at . If you have received this After Visit Summary in error, please immediately return it in person to the department, or notify the [facility] Privacy Office by calling toll free at between the hours of 8AM and 5PM to arrange for our retrieval of the documents at no cost to you. Content Version: 12.2 ?? [phone] [employer]. Care instructions adapted under license by [facility]. If you have questions about a medical condition or this instruction, always ask your healthcare professional. [employer] disclaims any warranty or liability for your [...] is during regular working hours, please call [phone]. If it is after 5 pm or a weekend or holiday, call [phone] and ask for the Sausage Machine Operator chain person for Interventional Radiology. You have received medication [...] Center 06/03/2024 2:00 PM Lu Mcfarland APRN [facility] ID 5C [facility] 06/05/2024 4:00 PM Elkin Garcia MD [facility] ORTH 3C [facility] Your Discharge Medication List Your Medications New [...] as much as possible. Call your doctor ([phone]) if you develop: Fever greater than 100.5 Severe nausea or vomiting Increasing pain that is not controlled by pain medications Increasing redness, swelling, or drainage from incisions Change in sensation FOLLOW-UP APPOINTMENTS: 1. You will have follow-up appointments at [facility] as indicated below in Future Appointment and Orders. 2. You will need to have x-rays prior to your follow-up appointment listed below. Please come to Radiology, desk 3T, 1 hour BEFORE that appointment for these x-rays. Future Appointments Date Time Provider Department Center 06/03/2024 2:00 PM Lu Mcfarland APRN [facility] ID 5C [facility] 06/05/2024 4:00 PM Elkin Garcia MD [facility] ORTH 3C [facility] If you have questions or concerns: Sunday through Sunday, 8 AM - 5 PM, please call Dr. Saba Spears MD's office at . If it is after 5 PM, the weekend, or holidays, please call and ask to speak with theOrthopedic resident on-call. * Attachments The following attachments cannot be sent through Care Everywhere. * Low Phosphorus Foods: General Info (Vincentian) * Low Potassium Foods: General Info (Vincentian) documented in this encounter Medications at Time [...] spent >30 minutes (Day of Discharge Code 18156) involved in the final examination of the patient, discussion of the hospital stay, instructions for continuing care to all relevant caregivers, and preparation of discharge records, prescriptions and referral forms. Plans Discharge to [facility] rehab Follow-up scheduled with ID, ortho, provider at [facility] Please see the Discharge Summary for complete details of any medication changes and additional plans. * Yg Jaffe - 05/23/2024 2:44 PM EDT Office of Care Management(OCM)/District Court Bailiff(RS) Patient Name: Jossy Shanks : 1955 Patient has been offered a SNF bed at [phone]. [facility] arranged for a BLS transport at 1530. Ambulance will need: Medicare ambulance form completed and signed (MD or Logistics Director) Copy of patient demographics [place] or [place] [facility] DNR/DNI order, if active No MD to MD report necessary. Please call Nursing Report to , ask for victorian literature professor. Info to accompany patient: Narcotic Prescriptions Copies of Medication Administration Records and IV sheets for past two weeks. Plan: District Court Bailiff will be available to the patient and Logistics Director for further assistance. Patient to discharge to: [facility] [address] [place] [address] Bailiff * Shirley Sameul RN - 05/23/2024 12:05 PM EDT Physician Certification Statement for Non-Emergency Ambulance Services Section I - General Information Jossy Spivey Rimma 1955 Medicare Number: n/a Transport Date: 05/23/2024 (PCS is valid for round trips on this date and for all repetitive trips in the 60-day range as noted below.) Origin: [facility] Destination: [facility] Is the patient's stay covered [...] the Centers of Medicare and Medicaid Services ([facility]) to support the determination of medical necessity [...] extremities. AAOx3 Labs: Labs personally reviewed in eD CBC: Recent Labs 05/23/24 0119 05/22/24 1118 [...] IMAGING: Reports and images personally reviewed in eD. Images independently interpreted. IR Tunneled Central Venous [...] who have questions, please contact the health inspector health care facilities that requested your imaging first. Teofilo Ruiz, [...] who have questions please contact the health inspector health care facilities that requested your imaging first. Chest One View Final Result Bibasilar atelectasis. Thank you for letting us participate in the care of this patient. If you are a health care provider and have any questions regarding this report, please contact the number below. For patients who have questions please contact the health inspector health care facilities that requested your imaging first. SCOPY: Reports [...] with them as documented. Tl Steele MD [facility] Gastroenterology * Irene Bravo RN - 05/22/2024 [...] Zhao RN - 05/22/2024 12:47 PM EDT Banking Center Manager spoke with JACKIE Nuñez from Endo regarding [...] AM EDTSummary: Pending discharge ID is treating Guanakojaren Dalton Shanks for an Methicillin-susceptible Coagulase negative Staphylococcus [...] Galvan MD - 05/22/2024 6:57 AM EDT [facility] Medicine - Red Team Inpatient Progress Note ID: Jossy Shanks is a 69 y.o. year old male with past medical history of PMH of HTN, HFpEF, CKD (bsl Cr ~1.5), IDDM, COPD (not on home O2), rate controlled Afib (Kiarrarellilian, qing, coreg) admitted on 05/10/2024 ( Hospital Day [...] with PT - hoping to go to [facility] today Meds: pantoprazole 40 mg Intravenous BID [...] Labs: Recent Labs 05/22/2418 05/21/24 1500 05/21/24 0827 WBC 14.70* 14.25* 15.77* HGB 7.2* 7.8* 7.5* HCT 22.1* 24.5* 23.0* PLATELET 366* 456* 398* Recent Labs 05/22/2451705/21/24 0458 05/20/24 0427 NA 138 138 138 [...] shoe, c/w pt - Bed ready at [facility] #IDDM Home regiment: 1.2mg liraglutide qd, 20u [...] upcoming EGD, and availability of bed at [facility]. -ordered T&S in case continues to drop [...] Medicine Hospital Medicine Red Team - Pager [phone] Associated attestation - Saba Spears MD - [...] will transfuse and monitor response. Dispo to [facility] for rehab pending Hgb stability and EGD. I have examined the patient myself and personally reviewed all studies. In addition, I certify thatI am a D-H credentialed attending provider with admitting privileges and that the patient meets or has met medical necessity to require an inpatient IPI level of care meeting a minimum of two midnights or is on the [facility] inpatient only procedure list (status C) due to: OM requiring IV abx * Lazaro Aaron, VESSEL ORDINARY SEAMAN - 05/21/2024 4:05 PM EDT Physical Therapy [...] discharge to swing bed rehab facility vs longterm facility once medically ready for hospital discharge. Pt will continue to benefit from skilled physical therapy while in the hospital in order to maximize independence and safety with functional mobility and achieve therapeutic goals. Discharge Recommendations: Based on current findings- swing bed rehabilitation facility, longterm facility Discharge recommendation is based on the [...] with stable vital signs. Total Time: 34 (2851-9780) minutes. TAx2 Lazaro Aaron PTA Pager: [phone] Physical Therapy Inpatient Rehabilitation Department * Penny [...] decreased insight into deficits Vision: corrective lenses kiln feeder Endurance: decreased activity tolerance Vitals: Stable on [...] with activities of daily living. Discharge Recommendation: longterm facility, swing bed rehabilitation facility Equipment Recommendations: [...] 2-3 times/wk Total Minutes, Occupational Therapy: 40 (REPLACED BY [facility] x3 ([phone])) Pager: [phone] Penny Rodriguez OT Occupational Therapy Rehabilitation Department [...] of : 1955 AGE: 69 y.o. Address: [address] [place], [place] [id number] (home) Mobile: Telephone Information: Referring Provider: Anna [...] Galvan MD - 05/21/2024 6:30 AM EDT [facility] Medicine - Red Team Inpatient Progress Note [...] over right distal foot Labs: Recent Labs 05/21/2445705/20/24 1235 05/20/24 0427 WBC 14.49* 14.66* 15.20* HGB 7.5* 8.4* 7.9* HCT 23.6* 26.2* 25.5* PLATELET 388* 416* 403* Recent Labs 05/21/248 05/20/24 0427 05/19/24 0511 NA 138 138 136 K 5.1* 5.4* 5.2* CL 111* 109* 108* CO2 18* 18* 18* BUN 110* 121* 118* CREATININE 3.04* 2.78* 2.75* GLUCOSE 151 173 162 Recent Labs 05/21/248 05/20/24 0427 05/19/24 0511 CALCIUM 9.4 9.4 [...] Medicine Hospital Medicine Red Team - Pager [phone] Associated attestation - Saba Spears MD - [...] mid 7s. Appreciate GI consult. Dispo to [facility] pending Hgb and EGD. I have examined the patient myself and personally reviewed all studies. In addition, I certify thatI am a D-H credentialed attending provider with admitting privileges and that the patient meets or has met medical necessity to require an inpatient IPI level of care meeting a minimum of two midnights or is on the [facility] inpatient only procedure list (status C) due [...] follow for few more days * Mihaela Galavn MD - 05/20/2024 6:20 AM EDT [facility] Medicine - Red Team Inpatient Progress Note [...] 2.69* GLUCOSE 162 170 144 Recent Labs 05/20/2442605/19/2411 05/18/24 1704 05/18/24 0400 CALCIUM -- 9.3 [...] Pip-tazo and vanc c/w CTX Planning for [facility] central line, instead of PICC [...] Mihaela Galvan MD 05/20/2024 PGY-3, Internal Medicine [facility] Medicine Red Team - Pager [phone] Associated attestation - Saba Spears MD - [...] with physical therapy session today. Assessment: Jossy Sahnks was seen today for physical therapy treatment [...] discharge to swing bed rehab facility vs longterm facility once medically ready for hospital discharge. Pt will continue to benefit from skilled physical therapy while in the hospital in order to maximize independence and safety with functional mobility and achieve therapeutic goals. Discharge Recommendations: Based on current findings- swing bed rehabilitation facility, longterm facility Discharge recommendation is based on the [...] Ho PT, Doctor of Physical Therapy Pager: [phone] Physical Therapy Inpatient Rehabilitation Department * Rebeca [...] decreased insight into deficits Vision: corrective lenses kiln feeder Endurance: decreased activity tolerance Vitals: Stable on [...] with activities of daily living. Discharge Recommendation: longterm facility, swing bed rehabilitation facility Equipment Recommendations: [...] times/wk Total Minutes, Occupational Therapy: 47 Pager: [phone] Rebeca Moeller OT Occupational Therapy Rehabilitation Department * Mihaela Galvan MD - 05/19/2024 6:43 AM EDT Hospital Medicine - Red Team Inpatient Progress [...] Medicine Hospital Medicine Red Team - Pager [phone] Associated attestation - Saba Spears MD - [...] of two midnights or is on the [facility] inpatient only procedure list (status C) due [...] for a hospital day 9 nutrition evaluation. Banking Center Manager met with pt at bedside. Pt saidhe [...] unless consulted in the interim. Julissa Weathers Heading Pinner * Mihaela Galvan MD - 05/18/2024 7:20 AM EDT [facility] Medicine - Red Team Inpatient Progress Note [...] Mihaela Galvan MD 05/18/2024 PGY-3, Internal Medicine [facility] Medicine Red Team - Pager [phone] Associated attestation - Saba Spears MD - [...] of two midnights or is on the [facility] inpatient only procedure list (status C) due [...] Harrison MD - 05/17/2024 6:28 AM EDT [facility] Red Team Inpatient Progress Note ID: [...] José Harrison MD 05/17/2024 PGY-3, Internal Medicine [facility] Medicine Red Team - Pager [phone] Associated attestation - Saba Spears MD - [...] 6.64) performed by Elkin Garcia MD at [facility] MAIN OR Active Non-Hospital Problems Diagnosis [...] admission to next 72h) Start Ordered 05/14/24 2015 Weight bearing status UNTIL DISCONTINUED Process Instructions: [...] [place] PT, Doctor of Physical Therapy Pager: [phone] Physical Therapy Inpatient Rehabilitation Department * Emmanuel Corey, - 05/16/2024 10:26 AM EDT Images from [...] History: Housing: lives in a camper in [facility] Occupation: Former [employer], retired in 2016 Pets: [...] Component Value - Date/Time MRSA PCR Screen ([facility] [place]/CGP/APD/NLH) [[id number]] Collected: 05/15/24 1615 Lab Status: Final result Specimen: Nasopharyngeal Swab Updated: 05/15/242012 MRSA Result Negative MRSA Interp -- Methicillin-resistant Staphylococcus aureus (MRSA) is NOT DETECTED The MRSA target DNA sequences (mec and SCC) were not detected within the acceptable ranges using the Xpert MRSA NxG on the GeneXpert Dx System (Smule). This suggests the absence of MRSA in the patient specimen submitted for testing. This test is cleared by the U.S. Food and Drug Administration for clinical use and its performance characteristics have been verified by the [facility] at [facility]. This result does not rule out the presence of any other organisms. Rare false negative results may occur if MRSA is present at low concentrations with much higher concentrations of other organisms including MRSE or S. aureus with an empty SCC cassette. Comment: [VERIFIED DATE]05.15.24 Verified By:Lupe Jensen (Electronic Signature) Tissue Culture, Aerobic & Anaerobic Toe [[id number]] (Abnormal) Collected: 05/14/24 1133 Lab Status: Preliminary result Specimen: Toe Updated: 05/15/24 1212 Tissue culture [[id number]] (Abnormal) Collected: 05/14/24 1133 Lab Status: Preliminary result Specimen: Toe Updated: 05/15/24 1212 Tissue Culture No growth to date. Gram Stain -- Few Neutrophils seen Rare Gram Positive Cocci in pairs seen Results called to and read back by Dr. Mihaela Galvan 05/14/24 14:57:00 Organism Gram Positive Cocci in pairs Anaerobic Culture [[id number]] Collected: 05/14/24 1133 Lab Status: Preliminary result Specimen: Toe Updated: 05/15/24 1124 Anaerobic Culture No anaerobic organisms isolated to date Blood culture [[id number]] Collected: 05/10/24 0232 Lab Status: Final result Specimen: Blood from Hand, Right Updated: 05/15/24 0701 Blood Culture No growth at 5 days. Skin/Superficial Wound Culture Toe [[id number]] (Abnormal) Collected: 05/10/24 0256 Lab Status: Final [...] follow. Please page ID Red team (pager [phone]) with questions or concerns. Emmanuel Corey, DO Internal Medicine PGY-2 Pager: [phone] Epic Chat 05/16/2024 Associated attestation - Rodriguez [...] from the original note were not included. [facility] Medicine - Red Team Inpatient Progress Note [...] Intake/Output Summary (Last 24 hours) at 05/16/2024 0667 Last data filed at 05/16/2024 0355 Gross [...] Component Value - Date/Time MRSA PCR Screen ([facility]/CGP/APD/NLH) [[id number]] Collected: 05/15/24 1615 Lab Status: Final result Specimen: Nasopharyngeal Swab Updated: 05/15/242012 MRSA Result Negative MRSA Interp -- Methicillin-resistant Staphylococcus aureus (MRSA) is NOT DETECTED The MRSA target DNA sequences (mec and SCC) were not detected within the acceptable ranges using the Xpert MRSA NxG on the GeneXpert Dx System (Smule). This suggests the absence of MRSA in the patient specimen submitted for testing. This test is cleared by the U.S. Food and Drug Administration for clinical use and its performance characteristics have been verified by the [facility] at [facility]. This result does not rule out the presence of any other organisms. Rare false negative results may occur if MRSA is present at low concentrations with much higher concentrations of other organisms including MRSE or S. aureus with an empty SCC cassette. Comment: [VERIFIED DATE]05.15.24 Verified By:Lupe Jensen (Electronic Signature) Tissue Culture, Aerobic & Anaerobic Toe [[id number]] (Abnormal) Collected: 05/14/24 113 Lab Status: Preliminary result Specimen: Toe Updated: 05/15/24 1212 Tissue culture [[id number]] (Abnormal) Collected: 05/14/24 113 Lab Status: Preliminary result Specimen: Toe Updated: 05/15/24 121 Tissue Culture No growth to date. Gram Stain -- Few Neutrophils seen Rare Gram Positive Cocci in pairs seen Results called to and read back by Dr. Mihaela Galvan 05/14/24 14:57:00 Organism Gram Positive Cocci in pairs Anaerobic Culture [[id number]] Collected: 05/14/24 113 Lab Status: Preliminary result Specimen: Toe Updated: 05/15/24 1124 Anaerobic Culture No anaerobic organisms isolated to date Blood culture [[id number]] Collected: 05/10/24 0232 Lab Status: Final result Specimen: Blood from Hand, Right Updated: 05/15/24 0701 Blood Culture No growth at 5 days. Skin/Superficial Wound Culture Toe [[id number]] (Abnormal) Collected: 05/10/24 0256 Lab Status: Final [...] Diet: Low Phos and Carb Control diet 60// CHO counting level 2 # DVT prophylaxis:Heparin, holding for pre-op # Fluids: NA # Access: 2IV in place # Dispo: pending clinical improvement # Code: Full Code Mihaela Galvan MD 05/16/2024 PGY-1, Internal Medicine Red Team - Pager [phone] Associated attestation - Treva Diaz MD - 05/16/2024 12:57 PM EDT Attending Attestation and Certification Please see Miheala Galvan MD's note for details of the [...] likely suture removal on 06/05/24. Please page [phone] with any questions or concerns. Activity: NWB until forefoot offloading shoe DVT prophylaxis: per primary, rec 30 days LVX or ASA81 BID Closure: Sutures (to be removed at Orthopaedic follow-up appointment) Dressing: bacitracin, xeroform, 4x4, kerlix, DEREK x 7 days Antibiotics: per primary Isra Rodriguez IV, DO 05/16/2024 Future Appointments Date Time Provider Department Center 06/05/2024 4:00 PM Elkin Garcia MD [facility] ORTH [address] [place] [address] * Mihaela Galvan MD - 05/15/2024 6:41 AM EDT Images from the original note were not included. [facility] Medicine - Red Team Inpatient Progress Note [...] right distal foot Labs: Recent Labs 05/15/24 0512 05/14/24 0501 05/13/24 [...] Procedure Component Value - Date/Time Tissue culture [[id number]] (Abnormal) Collected: 05/14/24 1133 Lab Status: Preliminary result Specimen: Toe Updated: 05/14/24 1459 Gram Stain -- Few Neutrophils seen Rare Gram Positive Cocci in pairs seen Results called to and read back by Dr. Mihaela Galvan 05/14/24 14:57:00 Organism Gram Positive Cocci in pairs Blood culture [[id number]] Collected: 05/10/24 0232 Lab Status: Preliminary result Specimen: Blood from Hand, Right Updated: 05/14/24 0701 Blood Culture No growth at 4 days. Skin/Superficial Wound Culture Toe [[id number]] (Abnormal) Collected: 05/10/24 0256 Lab Status: Final [...] PGY-1, Internal Medicine Red Team - Pager [phone] Associated attestation - Treva Diaz MD - [...] of two midnights or is on the [facility] inpatient only procedure list (status C) due [...] Center 06/05/2024 4:00 PM Elkin Garcia MD [facility] ORTH 3C [facility] * Savannah Sy RN - 05/14/2024 1:45 [...] Center 06/05/2024 4:00 PM Elkin Garcia MD [facility] ORTH [address] [place] [address] * Mihaela Galvan MD - 05/14/2024 6:04 AM EDT [facility] Medicine - Red Team Inpatient Progress Note [...] injury of the muscles of the forefoot. 7/29 Right duplex DVT leg: Interpretation RIGHT: No [...] PGY-1, Internal Medicine Red Team - Pager [phone] Associated attestation - Treva Diaz MD - [...] of two midnights or is on the [facility] inpatient only procedure list (status C) due [...] OR for the above procedure. Please page [phone] if there are any concerns regarding OR [...] Galvan MD - 05/13/2024 6:28 AM EDT [facility] Medicine - Red Team Inpatient Progress Note [...] Intake/Output Summary (Last 24 hours) at 05/13/2024 0656 Last data filed at 05/13/2024 0400 Gross [...] PGY-1, Internal Medicine Red Team - Pager [phone] Associated attestation - Treva Diaz MD - [...] of two midnights or is on the [facility] inpatient only procedure list (status C) due to: RLE cellulitis with concern forosteomyelitis. Continue on iv antibiotics and follow up with orthopedics regarding any surgical debridement . * Sarwat Marti - 05/12/2024 2:20 PM EDT [employer] Encounter Note Patient Name: Jossy Shanks : [id number] MR#: [id number] Admit Date: 05/10/2024 2:12 AM Hospital Day 2 days Narrative:Visited to introduce and assess acceptance of [employer] services. Patient was sleeping and I will visit an other time. Assessment: Intervention and Outcome: Follow-up: Time in Direct Care: Sarwat Marti 05/12/2024 * Mihaela Galvan MD - 05/12/2024 6:36 AM EDT [facility] Medicine - Red Team Inpatient Progress Note [...] Ext: b/l le edema Labs: Recent Labs 05/12/245 05/11/24 0200 05/10/24 0220 WBC 19.7* 25.8* 28.5* [...] PGY-1, Internal Medicine Red Team - Pager [phone] Associated attestation - Treva Diaz MD - [...] of two midnights or is on the [facility] inpatient only procedure list (status C) due to: RLE cellulitis with concern forosteomyelitis. Continue on iv antibiotics and discuss with orthopedics regarding any urgent need for surgical debridement. 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) DVT Prophylaxis: Heparin DOAC Code Status: Attempt [...] of two midnights or is on the [facility] inpatient only procedure list (status C) due [...] presented to a local emergency [facility] yesterday ([id number] birthday) due to ongoing wound issues and [...] Intake/Output Summary (Last 24 hours) at 05/10/2024 0937 Last data filed at 05/10/2024 0552 Gross [...] minimumof two midnights or is on the [facility] inpatient only procedure list (status C) due [...] on Lasix, HTN on Losartan,who presented to [facility] for rt LE cellulitis, transferred to [facility] for septic shock. Interval Events: - lactate [...] 05/10/2024 2:37 AM) Result Value WORKSTATION ID [id number] Impression Bibasilar atelectasis. Thank you for letting us participate in the care of this patient. If you are a health care provider and have any questions regarding this report, please contact the number below. For patients who have questions please contact the health inspector health care facilities that requested your imaging first. foot pending [...] ppx: not indicated -DPOA: Primary Emergency Contact: FortunatoGifty, -Dispo: downgrade to hospital medicine if remains off pressors Graciela Gill MD PGY1 * Jayden Thomas MD - 05/10/2024 2:56 AM EDT [facility] TeleICU Initial Assessment Note I established audio/visual [...] hour(s)) Lactate, whole blood, send to lab ([facility]) Result Value [...] infection if clinical appearance is worrisome -Awaiting [facility] admission K+ level and Chem 7 -Would [...] -- -- 110/54 -- -- -- 05/21/24 1949 36.4 ??C (97.5 ??F) 91 bpm 91 21 145/69 97 % -- RA 05/21/24 2328 36.3 ??C (97.3 ??F) 91 [...] indication: Osteomyelitis, central venous access required for halfway antibiotic use IR workflow: Procedure request received through Interventional Radiology eDH order queue. There are no answered order specific questions. History of Present Illness: Per chart review, Jossy Shanks is a 69 y.o. male with PMH of CKD, DM,COPD, A.fib, admitted for RLE cellulitis and osteomyelitis s/p 2ng toe amputation requiring halfway IV antibiotic administration who presents to Interventional [...] medical record. IR History: None listed at [facility] Anticoagulation/Antiplatelet: None listed Labs: Lab Results Component [...] Assessment: 69 y.o. male with OM requiring intermission coordinator IV ABX presenting to Interventional Radiology for [...] 6.64) performed by Elkin Garcia MD at [facility] MAIN OR Social History and Habits: [...] indication: Osteomyelitis, central venous access required for intermission coordinator antibiotic use IR workflow: Procedure request received through Interventional Radiology eDH order queue. There are no answered order specific questions. History of Present Illness: Per chart review, Jossy Shanks is a 69 y.o. male with PMH of CKD, DM,COPD, A.fib, admitted for RLE cellulitis and osteomyelitis s/p 2ng toe amputation requiring intermission coordinator IV antibiotic administration who presents to Interventional [...] medical record. IR History: None listed at [facility] Anticoagulation/Antiplatelet: None listed Labs: Lab Results Component [...] Assessment: 69 y.o. male with OM requiring halfway IV ABX presenting to Interventional Radiology for [...] 6.64) performed by Elkin Garcia MD at [facility] MAIN OR Social History and Habits: [...] amputation. Isra Rodriguez IV, DO Orthopaedic Surgery [facility] * Carlotta Davis MD - 05/10/2024 5:48 [...] on home oxygen, HFpEF, HTN, admitted to [facility] on 05/10/2024, now on Hospital Day #0, for RLE cellulitis SUBJECTIVE History of Present Illness: Per admitting provider Jossy Shanks is a 69 y.o. year old male with PMH significant for IDDM, Afib rate controlled, CKD (bsl cr 1.5), COPD not on home oxygen, HFpEF, HTN who presented to [facility] for rt LE cellulitis, transferred to [facility] for RLE cellulitis after trauma to his [...] knee. Fevers & chills for last 24hrs. [place] lightheaded, weak, & couldn't get out of [...] prior to OSH departure. On arrival to [facility]: HR 96, o2 sat mid 90s on [...] limbs -chronic Motor Exam: Upper Limb Bilateral: Beam Saw Operator Strength 5/5 Wrist Flexion/Extension 5/5 Elbow Flexion/Extension [...] 193 196 ANIONGAP 12 12 Recent Labs 05/10/2465405/10/24219 CALCIUM 8.6 8.5 MAGNESIUM -- 0.85 PHOS 5.1* 4.6* LFT's: Recent Labs 05/10/24219 BILITOT 0.5 BILIDIR 0.2 ALBUMIN 3.3 ALKPHOS 42 ALT 19 AST 21 Coags: Recent Labs 05/10/24219 PT 27.9* INR 2.5 Recent Labs 05/10/24219 INR 2.5 Cardiac enzymes: Recent Labs 05/10/24654 CK 58 Endocrine: No results for input(s): TSH, CORTISOL in the last 7068 hours. Invalid input(s): [id number] Recent Labs 05/10/24219 HA1C 5.9* Lipids: Heme: No results for input(s): LDH, HAPTOGLOBIN, URICACID in the last 168 hours. ABG (Arterial Blood Gas): No results found for: PHART, PO2ART, ZTS7YPN, FXM9DJR VBG (Venous Blood Gas): No results for input(s): PHVEN, TJM6JVV, PO2VEN, CFT4WAX, BEVEN, EIC2CPM in the last 72hours. EKG: No results [...] 05/10/2024 2:37 AM) Result Value WORKSTATION ID [id number] Impression Bibasilar atelectasis. Thank you for letting us participate in the care of this patient. If you are a health care provider and have any questions regarding this report, please contact the number below. For patients who have questions please contact the health inspector health care facilities that requested your imaging first. Foot wwo Contrast Right (Exam End: 05/10/2024 5:51 AM) Result Value WORKSTATION ID [id number] Impression 1. Soft tissue irregularity of the [...] who have questions please contact the health inspector health care facilities that requested your imaging first. Medications: Scheduled: [...] controlled Afib (Xarelto, dilt, coreg), admitted to [facility] on 05/10/2024, now on Hospital Day #0, [...] Internal Medicine PGY2 Medicine Team: Red, Pager #[phone] Associated attestation - Treva Diaz MD - [...] foot wound History of Present Illness Jossy Shansk is a 69 y.o. year old male with PMH significant for IDDM, Afib rate controlled, CKD (bsl cr 1.5), COPD not on home oxygen, HFpEF, HTN who presented to [facility] for rt LE cellulitis, transferred to [facility] for septic shock. Reports end of March [...] knee. Fevers & chills for last 24hrs. [place] lightheaded, weak, & couldn't get out of [...] prior to OSH departure. On arrival to [facility]: HR 96, o2 sat mid 90s on [...] mobilizes w/out assistance. Darion Morgan is DPOA; [phone] Physical Exam: Vitals: Last value Range last [...] Poor skin & nail Laboratory: Recent Labs 05/10/24 022 WBC 28.5* HGB 11.4* HCT 34.5* PLATELET 135* Recent Labs 05/10/24 022 NA 129* K 5.3* CL 93* CO2 24 BUN 71* CREATININE 3.94* Recent Labs 05/10/24 022 AST 21 ALT 19 ALKPHOS 42 BILITOT 0.5 BILIDIR 0.2 Recent Labs 05/10/24 0220 CALCIUM 8.5 PHOS 4.6* Imaging: No results [...] indicated -DPOA: Primary Emergency Contact: Gifty Bucio, [place] -Dispo: downgrade to hospital medicine if remains off pressors Anita Camacho MD Internal Medicine, PGY2 05/10/2024 [facility] Pager #[phone] documented in this encounter Procedure Notes * Juan José Flowers MD - 05/21/2024 11:49 AM EDT IR PROCEDURE NOTE Procedure: Tunneled central venous catheter placement. Indication for Procedure: Per Allyn MISM, Jossy Shanks is a 69 y.o. male with PMH of CKD, DM, COPD, A.fib, admitted for RLE cellulitis andosteomyelitis s/p 2ng toe amputation requiring intermission coordinator IV antibiotic administration who presents to Interventional [...] Patient is medically ready for discharge to [facility]. Needs for Transition of Care: Plan for discharge is: Retirement Facility / Swing OPAT Orders: ID Consult Ordered Agency Referrals & Follow-up Care: Contact information for follow-up [facility] [address] [place] [address] Transportation: family or friend will provide Wheelchair [...] through: Primary Insurance: AAR MANAGED MEDICARE Payor: [facility] MANAGED MEDICARE / Plan: [facility] MANAGED MEDICARE COMPLETE / Product Type: *No Product type* / Secondary Insurance: N/A Prescription Coverage: Yes This plan was formulated with input from patient and team. All are in agreement with plan. Shirley Samuel RN CM [facility]- Medicine Office of Care Management Ext: [phone] Pager: [phone] * Plan of Care - Juan José [...] Injury Flowsheets (Taken 05/22/2024802 by Trice Zhao, JACKIE) Body Position: weight shifting Intervention: Prevent and [...] Care Flowsheets (Taken 05/22/2024802 by Trice Zhao, RN) Trust Relationship/Rapport: care explained choices provided [...] and were able to stop the bleeding. Banking Center Manager carolyn a hemoglobin when patient got back [...] Operative Note Patient Name: Jossy Shanks : [id number] MR#: [id number] Case Date: 05/22/2024 Surgeon: Surgeons and Role: [...] PROVIDER: Saba Spears MD NAME: Jossy Spivey Jedabdifatah : 1955 HPI: Jossy Spivey Rimma 69 [...] Access Non-Dialysis 05/21/2024 Juan José Flowers MD [facility] INTERVENTIONL RAD PRO AMPUTATION METATARSAL+TOE, SINGLE Right 05/14/2024 AMPUTATION, TRANSMETATARSAL TOE, ONE TOE (WRVU 6.64) performed by Elkin Garcia MD at [facility] MAIN OR SOCIAL HX: Social History [...] SpO2 SpO2: [93 %-100 %] IO 05/20 07 - 05/21 07 In: 1777 [...] who have questions, please contact the health inspector health care facilities that requested your imaging first. Teofilo Ruiz, [...] who have questions please contact the health inspector health care facilities that requested your imaging first. Chest One View Final Result Bibasilar atelectasis. Thank you for letting us participate in the care of this patient. If you are a health care provider and have any questions regarding this report, please contact the number below. For patients who have questions please contact the health inspector health care facilities that requested your imaging first. SCOPY: Reports [...] NPO midnight - EGD tomorrow - hold xarelto Patient seen with Dr. Steele. Thank you [...] anticoagulation and significant anemia. Tl Steele MD [facility] Gastroenterology * Plan of Care - Pretty [...] Pain Flowsheets (Taken 05/20/2024802) Pain Management Interventions: fuuibi-vvl-mqjwd dosing utilized breathing exercises care clustered diversional [...] Payor: [employer] MANAGED MEDICARE / Plan: AARP [facility] MANAGED MEDICARE COMPLETE / Product Type: *No Product type* / Secondary Insurance: N/A Last Physical Therapy Recommendation: swing bed rehabilitation facility, longterm facility with to be determined Last Occupational Therapy Recommendation: longterm facility, swing bed rehabilitation facility with to be determined Plan for discharge is: Retirement Facility / Swing Outpatient Agency/Support Group Needs: Homecare agency OPAT Orders: ID Consult Ordered Location: Home Home Health Services: IV Therapy Agency Referrals: Based on discussions with the multi-disciplinary healthcare team, the patient would benefit from SNF level of care at discharge. I have met with the patient to: discuss discharge planning needs. provide the [facility], Office of Care Management letter from the Vehicle Controls Engineer pertaining to rehab referrals. provide a letter describing our affiliations within the [facility] and educate about their right to choose where referrals are sent. provide the CMS Star Quality Rating handout. review the different levels of rehab including SNF, swing, and acute. provide a list of facilities within their preferred geographic area. request that they provide at least three choices for referral. They have requested referrals to: [facility] [address] [place] [address] [facility] [address] [place] [address] -OFFERED BED, PENDING INSURANCE AUTHORIZATION 05/20 [address] [facility] [address] [place] [address] [facility] [address] [place] [address] [facility]) [address] [place] [address] (Accepts pts only after exhausting all other local SNF options) Does patient have COVID vaccine card: Yes; Copy obtained: No Note routed to a District Court Bailiff who will communicate referrals to facilities and provide any required information. Transportation: family or friend will provide Barriers to discharge: Discharge planning Plan going forward: Referrals routed for SNF/Swing. Care Management will continue to follow and assist with discharge planning and coordination of care as indicated. Anticipated Date of Discharge: 05/21/2024 Shirley Samuel RN [facility] Office of Care Management Ext: [phone] Pager: [phone] * Plan of Care - Pretty Ramirez [...] shock at his time of transfer to [facility]. Creatinine on admission was 3.94 mg/dL, he [...] 6.64) performed by Elkin Garcia MD at [facility] MAIN OR insulin glargine-ygfn (Semglee) (100 [...] Manage VTE (Venous Thromboembolism) Risk Flowsheets (Taken 05/18/2024 08) VTE Prevention/Management: anticoagulant therapy SCDs on [...] Flowsheets (Taken 05/18/2024 0838) Pain Management Interventions: msylmy-tvs-gekee dosing utilized care clustered diversional activity provided [...] Intervention: Prevent or Manage Pain Flowsheets Taken 05/17/2024 09 Diversional Activities: smartphone television Taken 05/15/2024 1825 Pain Management Interventions: wduijp-wjy-irwwx dosing utilized position adjusted pillow support provided [...] with PT this afternoon. Voiding CYU, LBM 8, incontinence care provided. Frequent checks, safety maintained, please see flowsheet for detailed assessment. Problem: Adult Inpatient Plan of Care Goal: Plan of Care Review Outcome: Ongoing (Interventions Implemented as Appropriate) Goal: Patient-Specific Goal (Individualized) Outcome: Ongoing (Interventions Implemented as Appropriate) Goal: Absence of Hospital-Acquired Illness or Injury Outcome: Ongoing (Interventions Implemented as Appropriate) Intervention: Identify and Manage Fall Risk Flowsheets (Taken 05/16/2024 08) Safety Promotion/Fall Prevention: activity supervised clutter free environment maintained assistive device/personal items within reach fall prevention program maintained lighting adjusted mobility aid in reach nonskid shoes/slippers when out of bed room organization consistent safety round/check completed Intervention: Prevent Skin Injury Flowsheets (Taken 05/16/2024 08) Body Position: semi-fowlers foot of bed elevated [...] smartphone Taken 05/15/2024 1825 Pain Management Interventions: [id number] dosing utilized position adjusted pillow support provided [...] 6.64) performed by Elkin Garcia MD at [facility] MA[facility] OR Active Non-Hospital Problems Diagnosis [...] Perception: WNL / WFL and corrective lenses kiln feeder Communication: WFL Range of motion, strength, coordination: [...] planning. Total Minutes, Occupational Therapy: 90 (evaluation (0311-1385)) 2017 OT Evaluation Code Rationale: Diagnosis & [...] and measurable assessment of functional outcome. Pager: [phone] Penny Rodriguez OT 05/16/2024 Occupational Therapy Rehabilitation [...] have. Alternately, during off-hours you may call [phone] to contact a pharmacist. * Consult Note [...] Intervention: Provide Person-Centered Care Flowsheets (Taken 05/15/2024 0737) Trust Relationship/Rapport: care explained choices provided emotional [...] Ongoing (Interventions Implemented as Appropriate) 05/15/20241127 by Evelny Prakash RN Outcome: Ongoing (Interventions Implemented as [...] Coping with Amputation 05/15/20241128 by Evelyn Prakash, JACKIE Outcome: Ongoing (Interventions Implemented as Appropriate) 05/15/20241127 [...] (Extremity Amputation) Goal: Acceptable Pain Control 05/15/2024 1129 by Evelyn Prakash, JACKIE Outcome: [...] briefly on vasopressors, and then transferred to [facility] for further management. 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 05/14. Reports a hx of cellulitis in the Left leg back in 2009 for which he states he did a course of 6 week son IV abx from [facility]. Has gotten cellulitis about half a dozen times in total. Review of Systems: Pertinent positives and negatives noted in HPI. 14 point ROS otherwise negative except noted in HPI. Allergies/Adverse drug reactions: No Known Allergies Family History: Family History No data available Social History: Housing: lives in a camper in [facility] Occupation: Former [employer], retired in 2017 Pets: [...] Procedure Component Value - Date/Time Blood culture [[id number]] Collected: 05/10/24 0232 Lab Status: Final result Specimen: Blood from Hand, Right Updated: 05/15/24 0701 Blood Culture No growth at 5 days. Tissue culture [[id number]] (Abnormal) Collected: 05/14/24 1133 Lab Status: Preliminary result Specimen: Toe Updated: 05/14/24 1459 Gram Stain -- Few Neutrophils seen Rare Gram Positive Cocci in pairs seen Results called to and read back by Dr. Mihaela Galvan 05/14/24 14:57:00 Organism Gram Positive Cocci in pairs Skin/Superficial Wound Culture Toe [[id number]] (Abnormal) Collected: 05/10/24 0256 Lab Status: Final [...] follow. Please page ID Red team (pager [phone]) with questions or concerns. Emmanuel Corey, DO Internal Medicine PGY-2 Pager: [phone] Epic Chat 05/15/2024 Associated attestation - Rodriguez [...] Home Health Services: IV Therapy Agency Referrals: [place] [address] or Home Care Orders: 1. IV Antibiotics: [...] to discharge: Discharge planning Plan going forward: Barbie routed and pended. [facility] routed. Care Management will continue to follow and assist with discharge planning and coordination of care as indicated. Anticipated Date of Discharge: 05/19/2024 Shirley Samuel RN CM Barber- Medicine Office of Care Management Ext: [phone] Pager: [phone] * Plan of Care - YgChristine lloyd Bobo, RN - 05/15/2024 6:07 AM EDT [...] ADLs]: arms reach Surveillance [continuous indirect monitoring]: massteveo, call light in reach, room near nurses [...] Operative Note Patient Name: Jossy Shanks : [id number] MR#: [id number] Case Date: 05/14/2024 Surgeon: Surgeons and Role: [...] Garcia MD - 05/14/2024 11:16 AM EDT [facility] Operative Note Patient Name: Jossy Shanks : [id number] MR#: [id number] Case Date: 05/14/2024 Surgeon: Surgeons and Role: [...] 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 Surgical Infection Prevention Bundle Used? N/A Attestation: Case Date: 05/14/2024 I was present and I participated during the entire procedure (does not need to include opening and closing). Elkin Garcia MD 05/14/2024 * Consult Note - Hakeem Villa, [facility] - 05/14/2024 7:15 AM EDT [facility] Pharmacokinetics Note Drug: Vancomycin Pharmacokinetic target: AUC24 (range) 400-600 mg/L.hr Jossy Shanks is a 69-year-old male receiving intermittent Vancomycin doses Recent measured serum creatinine values: 05/14/2024 05:01 1.56 mg/dL 05/13/2024 05:29 1.53 mg/dL 05/12/2024 04:45 2.03 mg/dL Assessment: Analysis of the most recent level(s) using [employer] gives the following patient-specific pharmacokinetic parameters: CL: [...] CrCl, AUC, and trough Hakeem Villa PharmD Electronically signed by Hakeem Villa [facility] at 05/14/2024 7:16 AM EDT * Plan of Care - Pretty Ramirez [...] Within Desired Range 05/14/2024 0456 by Pretty Ramirez, JACKIE Outcome: Ongoing (Interventions Implemented as Appropriate) 05/14/2024 0455 by Pretty Ramirez, JACKIE Outcome: Ongoing (Interventions Implemented as Appropriate) Problem: Infection Progression (Sepsis) Goal: Absence of Infection Signs and Symptoms 05/14/2024 0456 by Pretty Ramirez, JACKIE Outcome: Ongoing (Interventions Implemented as Appropriate) 05/14/2024 0455 by Pretty Ramirez, JACKIE Outcome: Ongoing (Interventions Implemented as Appropriate) Problem: [...] controlled Afib (Xarelto, dilt, coreg), admitted to [facility] on 05/10/2024 with LE cellulitis 2/2 right foot trauma. Reason for intervention: Diet order question - what type of carb control diet does pt need? Nutrition Recommendations: Carb control level 3 diet Monitor po intake Monitor blood glucose levels Monitor weight trends I was able to discuss plan with provider Medicine Pager Red [phone] . Nutrition consult received regarding what type of carb control diet pt needs. Estimated nutrition needs based on ideal body weight of 89kg: Calories: 0119-9189 calories (20-25kcal/kg) Protein: 89-107g (1-1.2g/kg) Nutrition to [...] border dressing. (Melgisorb Ag 6x6 PS # [id number]) (Melgisorb Ag 4x4 PS # [id number]) Sacrum/ischium: open to air, utilize Z-guard if patient begins to have breakdown Supplies left at the bedside: 1 sheet of Melgisorb Ag, wound cleanser Wound Care will complete the consult at this time. If there are further issues please re-consult via eD-H. Discussed plan with: RN: Don Please contact Keeley Russell RN on eDH secure chat or the wound care team on pager [phone] with skin and wound care concerns or [...] surrogate would be surrogate decision maker per [place] surrogate decision making law. (Only good for 180 days) Son CONRADO Any patient receiving care in [place] must abide by [place] law. The hierarchy for surrogate decision making [...] (i) The agent with financial power of criminal attorney or a conservator appointed in accordance [...] Current DME: none Home Address listed as: [address] [place] [address] Pt is not currently residing here. Current address is as below: [place] [id number] [place] [id number] Social & Family Supports: All names listed below confirmed with patient as current and correct Extended Emergency Contact Information Primary Emergency Contact: Eddie Shanks Mobile Relation: Son/Umdxgitd-yn-axl Secondary Emergency Contact: Gifty Bucio [facility] Relation: Mother Current Care Provided by: self [...] Pertinent/Service Specific Information: Health/Prescription Coverage: Primary Insurance: [facility] [employer] [facility] OOS Payor: [facility] OOS / Plan: [facility] OOS PPO / Product Type: *No Product type* / Secondary Insurance: N/A ; Prescription Coverage: Yes Preferred Pharmacy: [id number] - [place], [place] - [address] [place] [address] AT [address] [facility] [address] [facility] [address] Primary Care Provider listed: None None Pt does have PCP in [facility] Patient/Caregiver Goals of Treatment: Potential Needs for Transition of Care: none, home health care Agency Referrals: I have met with the patient to: discuss discharge planning needs. provide the [facility], Office of Care Management letter from the Vehicle Controls Engineer pertaining to rehab referrals. provide a letter describing our affiliations within the [facility] and educate about their right to choose where referrals are sent. provide a list of Home Health Agencies / Durable Medical Equipment vendors which serve their preferred geographic area. provided patient with [facility] Star Quality Rating handout. They have requested referrals to: [facility] [address] [place] [address] Note routed to a [address] Bailiff who will communicate referrals to facilities and [...] wait list for housing (an apartment) in [place], [place]; ETA for move-in is 4-8weeks. He does not feel that his local family members would be able to house him in the interim andexpresses that he is comfortable in his camper, which has amenities. He is fully independent at baseline but has used [facility] health in the past; a referral will be routed. His son CONRADO will be his transportation home. Care Management team will continue to follow and assist with discharge planing and coordination of care as indicated. Jessica Srtoud RN Office of Care Management * Plan [...] Clinical Pharmacist Note - VancFD Jossy Shanks [id number] Jossy Shanks is a 69 y.o. [...] questions you may have. Alternately, during off-hours (-) you may call [phone] to contact a pharmacist. Rodriguez Sinclair RPH * Consult Note - Tyrone Rehman MD - 05/10/2024 3:35 AM EDT Orthopaedic Surgery Consult Note Attending: Dr. oCntreras We are seeing Jossy Shanks at the [...] intact shoulder abduction, elbow flexion/extension, wrist flexion/extension, cub reporter, EPL, AIN, IO Brisk capillary refill distally [...] intact shoulder abduction, elbow flexion/extension, wrist flexion/extension, cub reporter, EPL, AIN, IO Brisk capillary refill distally [...] changes develop in his course. Please page [phone] following completion of requestedimaging and studies. - Activity: no restrictions at this time - DVT prophylaxis: per primary; recommend lovenox 30 mg BID - Antibiotics: per ID - Imaging / studies needed: MRI wwo contrast, ABIs, ESR, CRP Tyrone Rehman MD Orthopaedic Surgery, [id number] documented in this encounter Plan of Treatment Upcoming Encounters Date Type Department Care Team (Late st Contact Info) Description 06/10/2024 10:30 AM EDT [place] [address] Elkin Garcia MD [facility] DR OR[place] [address] Scheduled Referrals Name Type Priority Associated Diagnoses [...] POC, GLUCOSE Routine 05/22/2024 6:20 PM EDT UPPER GI ENDOSCOPY Routine 05/22/2024 12 :48 [...] 05/14/2024 11:32 AM EDT Amputation Metatarsal+Toe, Single (22718) 05/14/2024 10:37 AM EDT right second toe [...] 5:29 AM EDT DIFFERENTIAL, AUTOMATED Routine 05/13/20 24 5:29 AM EDT CBC (WITH DIFF) Routine [...] - 199 mg/dL 05/23/2024 12:32 PM EDT [facility] Comment:Supplemental ranges: <140 mg/dL before meals <180 mg/dL all other times of the day. Blood CAPILLARY BLOOD / Unknown 05/23/2024 12:32 PM EDT 05/23/2024 12:32 PM EDT Saba Spears MD POINT OF CARE TEST ORDERABLES Performing Organization Address City/State/[facility] Co de Phone Number [facility] [place] [address] * (ABNORMAL) Basic Metabolic Panel (05/23/2024 9:46 AM EDT) Glucose 142 65 - 199 mg/dL 05/23/2024 11:27 AM EDT [facility] Comment:Glucose Concentratio n >=200 mg/dL plus symptoms is consistent with Diabetes Mellitus. Blood Urea Nitrogen 83(H) 10 - 20 mg/dL 05/23/2024 11:27 AM EDT [facility] Creatinine 2.64(H) 0.80 - 1.50 mg/dL 05/23/2024 11:27 AM EDT [facility] Sodium 140 135 - 145 mMol/L 05/23/2024 11:27 AM EDT [facility] Potassium 5.2(H) 3.5 - 5.0 mMol/L 05/23/2024 11:27 AM EDT [facility] Chloride 111(H) 98 - 107 mMol/L 05/23/2024 11:27 AM EDT [facility] Carbon Dioxide 20(L) 22 - 31 mMol/L 05/23/2024 11:27 AM EDT [facility] Anion Gap 9 5 - 15 mMol/L 05/23/2024 11:27 AM EDT [facility] Calcium 9.3 8.5 - 10.5 mg/dL 05/23/2024 11:27 AM T [facility] Est Glomerular Filtration Rate - Male 25 mL/min/1. 73 m?? 05/23/2024 11:27 AM [facility] Comment: This patient's estimated GFR [...] EDT Saba Spears MD CHEMISTRY ORDERABLE S [facility] [place] [address] * (ABNORMAL) CBC (with Diff) (05/23/2024 9:46 AM EDT) White Blood Cell 12.66(H) 4.00 - 9.50 x10(3)/mc L 05/23/2024 10:52 AM EDT [facility] Red Blood Cell 2.56(L) 4.58 - 5.54 x10(6)/mc L 05/23/2024 10:52 AM [facility] Hemoglobin 7.7(L) 13.7 - 16.5 g/dL 05/23/2024 10:52 AM [facility] Hematocrit 24.3(L) 40.5 - 48.5 % 05/23/2024 10:52 AM [facility] Mean Cell Volume 94.9(H) 82.9 - 93.1 fL 05/23/2024 10:52 AM [facility] Mean Cell Hemoglobin 30.1 27.5 - 32.1 pg 05/23/2024 10:52 AM [facility] Mean Cell Hemoglobin Concentration 31.7(L) 32.0 - 35.7 g/dL 05/23/2024 10:52 AM [facility] Platelet 370(H) 145 - 357 x10(3)/mc L 05/23/2024 10:52 AM [facility] Mean Platelet Volume 11.6 7.6 - 12.9 fL 05/23/2024 10:52 AM [facility] RDW Standard Deviation 57.1(H) 36.0 - 45.0 fL 05/23/2024 10:52 AM [facility] RDW coefficient of variation 16.9(H) 11.4 - 13.8 % 05/23/2024 10:52 AM [facility] NRBC% auto 0.0 % 05/23/2024 10:52 AM [facility] NRBC Absolute 0.00 0.00 - 0.00 x10(3)/mc L 05/23/2024 10:52 AM [facility] Neutrophil % 81.6 % 05/23/2024 10:52 AM [facility] Neutrophil Absolute 10.34(H) 1.70 - 6.10 x10(3)/mc L 05/23/2024 10:52 AM EDT [facility] Lymph % 5.1 % 05/23/2024 10:52 AM EDT [facility] Lymph Absolute 0.64(L) 0.90 - 3.20 x10(3)/mc L 05/23/2024 10:52 AM EDT [facility] Monocyte % 10.7 % 05/23/2024 10:52 AM EDT [facility] Monocyte Absolute 1.35(H) 0.30 - 0.90 x10(3)/mc L 05/23/2024 10:52 AM EDT [facility] Eos % 1.7 % 05/23/2024 10:52 AM EDT [facility] Eos Absolute 0.22 0.00 - 0.40 x10(3)/mc L 05/23/2024 10:52 AM EDT [facility] Basophil % 0.3 % 05/23/2024 10:52 AM EDT [facility] Baso Absolute 0.04 0.00 - 0.10 x10(3)/mc L 05/23/2024 10:52 AM EDT [facility] Immature Gran % 0.6 % 10:52 AM EDT [facility] Immature Gran Absolute 0.07(H) 0.00 - 0.04 x10(3)/mc L 05/23/2024 10:52 AM EDT [facility] Blood VENOUS BLOOD SPECIMEN / Unknown IP Care Team Draw / Unknown 05/23/2024 9:46 AM EDT 05/23/2024 10:01 AM EDT Saba Spears MD HEMATOLOGY ORDERABL ES [facility] [place] [address] * POC, GLUCOSE (05/23/2024 7:44 AM EDT) [facility] Signature Glucometer, POC 127 65 - 199 mg/dL 05/23/2024 7:44 AM EDT [facility] Comment:Supplemental ranges: <140 mg/dL before meals <180 mg/dL all other times of the day. Blood CAPILLARY BLOOD / Unknown 05/23/2024 7:44 AM EDT 05/23/2024 7:45 AM EDT Saba Spears MD POINT OF CARE TEST ORDERABLES Performing Organization Address City/[facility] Co de Phone Number [facility] [place] [address] * Prepare RBC (05/23/2024 3:49 AM EDT) Status Information Transfused [facility] Product Identification RBC [facility] Unit Number [id number] [facility] Product [facility] [id number] [facility] Unit Blood Type OPOS [facility] Specimen Expiration Date [id number] [facility] Volulme 350 [facility] Issue Date / Time [id number] [facility] Blood 05/22/2024 12: 42 PM EDT Saba Spears MD BLOOD BANK PRODUCT ORDERABLES Performing Organization Address [facility] Co de Phone Number [facility] [place] [address] * POC, GLUCOSE (05/23/2024 3:49 AM EDT) Glucometer, POC 152 65 - 199 mg/dL 05/23/2024 3:49 AM EDT [facility] Comment:Supplemental ranges: <140 mg/dL before meals <180 mg/dL all other times of the day. Blood CAPILLARY BLOOD / Unknown 05/23/2024 3:49 AM EDT 05/23/2024 3:49 AM EDT Saba Spears MD POINT OF CARE TEST ORDERABLES Performing Organization Address City/[facility]/ZIP Co de Phone Number [facility] [place] [address] * POC, GLUCOSE (05/23/2024 1:26 AM EDT) [facility] Glucometer, POC 138 65 - 199 mg/dL 05/23/2024 1:26 AM EDT [facility] Comment:Supplemental ranges: <140 mg/dL before meals <180 mg/dL all other times of the day. Blood CAPILLARY BLOOD / Unknown 05/23/2024 1:26 AM EDT 05/23/2024 1:26 AM EDT Saba Spears MD POINT OF CARE TEST ORDERABLES Performing Organization Address City/[facility]/ZIP Co de Phone Number [facility] [place] [address] * (ABNORMAL) Scan, Peripheral Blood (05/23/2024 1:19 AM EDT) [facility] RBC Morphology Abnormal 05/23/2024 3:44 AM EDT [facility] Platelet Estimate Increased(A) Normal 05/23/2024 3:44 AM EDT [facility] Ovalocytes 1-5 /HPF 05/23/2024 3:44 AM EDT [facility] [place] cells 1-5 /HPF 05/23/2024 3:44 AM EDT [facility] Blood VENOUS BLOOD SPECIMEN / Unknown IP Care Team Draw / Unknown 05/23/2024 1:19 AM EDT 05/23/2024 2:05 AM EDT Mary De La Fuente MD HEMATOLOGY ORDERAB LES [facility] [place] [address] * Magnesium (05/23/2024 1:19 AM EDT) [facility] Magnesium 0.86 0.69 - 1.07 mMol/L 05/23/2024 2:40 AM EDT [facility] Blood VENOUS BLOOD SPECIMEN / Unknown IP Care Team Draw / Unknown 05/23/2024 1:19 AM EDT 05/23/2024 2:05 AM EDT Mary De La Fuente MD CHEMISTRY ORDERABL ES Performing Organization Address [facility]/ZIP Co de Phone Number [facility] [place] [address] * (ABNORMAL) Phosphorus (05/23/2024 1:19 AM EDT) Phosphorus 5.8(H) 2.5 - 4.5 mg/dL 05/23/2024 2:40 AM EDT [facility] Blood VENOUS BLOOD SPECIMEN / Unknown IP Care Team Draw / Unknown 05/23/2024 1:19 AM EDT 05/23/2024 2:05 AM EDT Mary De La Fuente MD CHEMISTRY ORDERABL ES Performing Organization Address [facility] Co de Phone Number [facility] [place] [address] * (ABNORMAL) Basic Metabolic Panel (non-fasting) (05/23/2024 1:19 AM EDT) Glucose 158 65 - 199 mg/dL 05/23/2024 3:34 AM EDT [facility] Comment:Glucose Concentratio n >=200 mg/dL plus symptoms is consistent with Diabetes Mellitus. Blood Urea Nitrogen 85(H) 10 - 20 mg/dL 05/23/2024 3:34 AM EDT [facility] Creatinine 2.70(H) 0.80 - 1.50 mg/dL 05/23/2024 3:34 AM EDT [facility] Sodium 139 135 - 145 mMol/L 05/23/2024 3:34 AM EDT [facility] Potassium 4.9 3.5 - 5.0 mMol/L 05/23/2024 3:34 AM EDT [facility] Chloride 108(H) 98 - 107 mMol/L 05/23/2024 3:34 AM EDT [facility] Carbon Dioxide 20(L) 22 - 31 mMol/L 05/23/2024 3:34 AM EDT [facility] Anion Gap 11 5 - 15 mMol/L 05/23/2024 3:34 AM EDT [facility] Calcium 9.1 8.5 - 10.5 mg/dL 05/23/2024 3:34 AM EDT [facility] Est Glomerular Filtration Rate - Male 25 mL/min/1. 73 m?? 05/23/2024 3:34 AM EDT [facility] Comment: This patient's estimated [...] [facility] Fasting Status 05/23/2024 3:34 AM EDT [facility] Blood VENOUS BLOOD SPECIMEN / Unknown IP Care Team Draw / Unknown 05/23/2024 1:19 AM EDT 05/23/2024 2:05 AM EDT Mary De La Fuente MD CHEMISTRY ORDERABL ES [facility] [place] [address] * (ABNORMAL) CBC (with Diff) (05/23/2024 1:19 AM EDT) White Blood Cell 12.66(H) 4.00 - 9.50 x10(3)/mc L 05/23/2024 3:44 AM EDT [facility] Red Blood Cell 2.61(L) 4.58 - 5.54 x10(6)/mc L 05/23/2024 3:44 AM [facility] Hemoglobin 7.8(L) 13.7 - 16.5 g/dL 05/23/2024 3:44 AM [facility] Hematocrit 24.3(L) 40.5 - 48.5 % 05/23/2024 3:44 AM [facility] Mean Cell Volume 93.1 82.9 - 93.1 fL 05/23/2024 3:44 AM [facility] Mean Cell Hemoglobin 29.9 27.5 - 32.1 pg 05/23/2024 3:44 AM [facility] Mean Cell Hemoglobin Concentration 32.1 32.0 - 35.7 g/dL 05/23/2024 3:44 AM [facility] Platelet 381(H) 145 - 357 x10(3)/mc L 05/23/2024 3:44 AM [facility] Mean Platelet Volume 11.4 7.6 - 12.9 fL 05/23/2024 3:44 AM [facility] RDW Standard Deviation 55.1(H) 36.0 - 45.0 fL 05/23/2024 3:44 AM [facility] RDW coefficient of variation 16.5(H) 11.4 - 13.8 % 05/23/2024 3:44 AM [facility] NRBC% auto 0.0 % 05/23/2024 3:44 AM [facility] NRBC Absolute 0.00 0.00 - 0.00 x10(3)/mc L 05/23/2024 3:44 AM [facility] Neutrophil % 79.4 % 05/23/2024 3:44 AM [facility] Comment:This is an appended report. These results have been appended to a previously preliminary verified report. Neutrophil Absolute 10.06(H) 1.70 - 6.10 x10(3)/mc L 05/23/2024 3:44 AM [facility] Comment:This is an appended report. These results have been appended to a previously preliminary verified report. Lymph % 5.8 % 05/23/2024 3:44 AM [facility] Comment:This is an appended report. These results have been appended to a previously preliminary verified report. Lymph Absolute 0.73(L) 0.90 - 3.20 x10(3)/mc L 05/23/2024 3:44 AM [facility] Comment:This is an appended report. These results have been appended to a previously preliminary verified report. Monocyte % 12.1 % 05/23/2024 3:44 AM [facility] Comment:This is an appended report. These results have been appended to a previously preliminary verified report. Monocyte Absolute 1.53(H) 0.30 - 0.90 x10(3)/mc L 05/23/2024 3:44 AM [facility] LABORATORY Comment:This is an appended report. These results have been appended to a previously preliminary verified report. Eos % 1.9 % 05/23/2024 3:44 AM [facility] Comment:This is an appended report. These results have been appended to a previously preliminary verified report. Eos Absolute 0.24 0.00 - 0.40 x10(3)/mc L 05/23/2024 3:44 AM [facility] Comment:This is an appended report. These results have been appended to a previously preliminary verified report. Basophil % 0.3 % 05/23/2024 3:44 AM [facility] Comment:This is an appended report. These results have been appended to a previously preliminary verified report. Baso Absolute 0.04 0.00 - 0.10 x10(3)/mc L 05/23/2024 3:44 AM [facility] Comment:This is an appended report. These results have been appended to a previously preliminary verified report. Immature Gran % 0.5 % 3:44 AM [facility] Comment:This is an appended report. These results have been appended to a previously preliminary verified report. Immature Gran Absolute 0.06(H) 0.00 - 0.04 x10(3)/mc L 05/23/2024 3:44 AM EDT [facility] Comment:This is an appended report. These results have been appended to a previously preliminary verified report. Blood VENOUS BLOOD SPECIMEN / Unknown IP Care Team Draw / Unknown 05/23/2024 1:19 AM EDT 05/23/2024 2:05 AM EDT Mary De La Fuente MD HEMATOLOGY ORDERAB LES Performing Organization Address City/[facility]/ZIP Co de Phone Number [facility] [place] [address] * POC, GLUCOSE (05/22/2024 8:21 PM EDT) Glucometer, POC 152 65 - 199 mg/dL 05/22/2024 8:21 PM EDT [facility] Comment:Supplemental ranges: <140 mg/dL before meals <180 mg/dL all other times of the day. Blood CAPILLARY BLOOD / Unknown 05/22/2024 8:21 PM EDT 05/22/2024 8:21 PM EDT Saba Spears MD POINT OF CARE TEST ORDERABLES Performing Organization Address City/[facility]/ZIP Co de Phone Number [facility] [place] [address] * POC, GLUCOSE (05/22/2024 6:20 PM EDT) Glucometer, POC 130 65 - 199 mg/dL 05/22/2024 6:20 PM EDT [facility] Comment:Supplemental ranges: <140 mg/dL before meals <180 mg/dL all other times of the day. Blood CAPILLARY BLOOD / Unknown 05/22/2024 6:20 PM EDT 05/22/2024 6:21 PM EDT Saba Spears MD POINT OF CARE TEST ORDERABLES [facility] [place] [address] * Transfuse RBC (05/22/2024 2:45 PM EDT) Saba Spears MD NURSING TREATMENT O RDERABLES - BLOOD ADMIN * UPPER GI ENDOSCOPY (05/22/2024 12:48 PM EDT) Pathologist [facility] UPPER GI ENDOSCOPY [facility] Endoscopy ___ Procedure Date: 05/22/2024 12:48 PM ? Patient Name: Jossy Shanks ? N: [id number] ? Date of : 1955 ? Age: 69 ? Order #: [id number] ? Instrument Name: [id number] ? ___ Procedure: ? Upper GI endoscopy [...] personally performed the entire procedure. ? Jonn Jennifer Mena, 05/22/2024 4:58:10 PM Number of Addenda: 0 Note Initiated On: 05/22/2024 12:48 PM [employer]ATION 05/22/2024 12:4 8 PM EDT Unknown GENERAL SURGICAL ORD ERABLES PROVATION * ABORH RECHECK (PATIENT HISTORY FOUND) (05/22/2024 11:18 AM EDT) Pathologist [facility] ABOR Recheck Progress Complete 05/22/2024 1:01 PM EDT [facility] Blood VENOUS BLOOD SPECIMEN / Unknown IP Care Team Draw / Unknown 05/22/2024 11:18 AM EDT 05/22/2024 11:27 AM EDT Saba Spears MD BLOOD BANK LAB FADY GAO [facility] [place] [place] [address] * Type and screen ([facility]/CGP/TARA) (05/22/2024 11:18 AM EDT) ABORH Type O POSITIVE 05/22/2024 12:31 PM EDT [facility] PATIENT HISTORY Found 05/22/2024 12:31 PM EDT [facility] Expires at [id number] on: 05-22-2024 05/22/2024 12:31 PM EDT [facility] ANTIBODY SCREEN AUTOMATED Negative 05/22/2024 12:31 PM EDT [facility] T&S only valid at [facility] 05/22/2024 12:31 PM EDT [facility] Blood VENOUS BLOOD SPECIMEN / Unknown IP Care Team Draw / Unknown 05/22/2024 11:18 AM EDT 05/22/2024 11:27 AM EDT Narrative [facility] - 05/22/2024 12:31 PM EDT This Type and Screen result is only valid at the [facility] Saba Spears MD BLOOD BANK LAB ORDE RABLES Performing Organization Address City/[facility]/ZIP Co de Phone Number [facility] [place] [place] [address] * (ABNORMAL) Hemoglobin and Hematocrit, blood (05/22/2024 11:18 AM EDT) Hemoglobin 6.9(L) 13.7 - 16.5 g/dL 05/22/2024 12:02 PM EDT [facility] Hematocrit 21.4(L) 40.5 - 48.5 % 05/22/2024 12:02 PM EDT [facility] Blood VENOUS BLOOD SPECIMEN / Unknown IP Care Team Draw / Unknown 05/22/2024 11:18 AM EDT 05/22/2024 11:36 AM EDT Saba Spears MD HEMATOLOGY ORDERABL ES [facility] [place] [address] * POC, GLUCOSE (05/22/2024 11:14 AM EDT) Glucometer, POC 126 65 - 199 mg/dL 05/22/2024 11:17 AM EDT [facility] Comment:Supplemental ranges: <140 mg/dL before meals <180 mg/dL all other times of the day. Blood CAPILLARY BLOOD / Unknown 05/22/2024 11:14 AM EDT 05/22/2024 11:18 AM EDT Saba Spears MD POINT OF CARE TEST ORDERABLES Performing Organization Address City/[facility]/ZIP Co de Phone Number [facility] [place] [address] * POC, GLUCOSE (05/22/2024 8:07 AM EDT) Glucometer, POC 132 65 - 199 mg/dL 05/22/2024 8:08 AM EDT [facility] Comment:Supplemental ranges: <140 mg/dL before meals <180 mg/dL all other times of the day. Blood CAPILLARY BLOOD / Unknown 05/22/2024 8:07 AM EDT 05/22/2024 8:08 AM EDT Saba Spears MD POINT OF CARE TEST ORDERABLES Performing Organization Address [facility] Co de Phone Number [facility] [place] [address] * (ABNORMAL) Hepatic Function Panel (05/22/2024 5:18 AM EDT) Albumin 2.6(L) 3.2 - 5.2 g/dL 05/22/2024 9:50 AM EDT [facility] Aspartate Aminotransferase 18 <=39 unit/L 05/22/2024 9:50 AM EDT [facility] Alanine Aminotransferase 42 0 - 55 unit/L 05/22/2024 9:50 AM EDT [facility] Alkaline Phosphatase 84 40 - 130 unit/L 05/22/2024 9:50 AM EDT [facility] Bilirubin, Total <0.2 <=1.3 mg/dL 05/22/2024 9:50 AM EDT [facility] Bilirubin, Direct <0.2 0.0 - 0.3 mg/dL 05/22/2024 9:50 AM EDT [facility] Protein, Total 6.0(L) 6.1 - 8.0 g/dL 05/22/2024 9:50 AM EDT [facility] Blood VENOUS BLOOD SPECIMEN / Unknown IP Care Team Draw / Unknown 05/22/2024 5:18 AM EDT 05/22/2024 5:45 AM EDT Saba Spears MD CHEMISTRY ORDERABLE S Performing Organization Address City/[facility]/ZIP Co de Phone Number [facility] [place] [address] * Magnesium (05/22/2024 5:18 AM EDT) Magnesium 0.93 0.69 - 1.07 mMol/L 05/22/2024 6:16 AM EDT [facility] Blood VENOUS BLOOD SPECIMEN / Unknown IP Care Team Draw / Unknown 05/22/2024 5:18 AM EDT 05/22/2024 5:45 AM EDT Mary De La Fuente MD CHEMISTRY ORDERABL ES Performing Organization Address [facility]/ZIP Co de Phone Number [facility] [place] [address] * (ABNORMAL) Phosphorus (05/22/2024 5:18 AM EDT) Phosphorus 5.8(H) 2.5 - 4.5 mg/dL 05/22/2024 6:16 AM EDT [facility] Blood VENOUS BLOOD SPECIMEN / Unknown IP Care Team Draw / Unknown 05/22/2024 5:18 AM EDT 05/22/2024 5:45 AM EDT Mary De La Fuente MD CHEMISTRY ORDERABL ES Performing Organization Address City/[facility]/ZIP Co de Phone Number [facility] [place] [address] * (ABNORMAL) Basic Metabolic Panel (05/22/2024 5:18 AM EDT) Glucose 121 65 - 199 mg/dL 05/22/2024 6:16 AM [facility] Comment:Glucose Concentratio n >=200 mg/dL plus symptoms is consistent with Diabetes Mellitus. Blood Urea Nitrogen 97(H) 10 - 20 mg/dL 05/22/2024 6:16 AM [facility] Creatinine 2.77(H) 0.80 - 1.50 mg/dL 05/22/2024 6:16 AM [facility] Sodium 138 135 - 145 mMol/L 05/22/2024 6:16 AM [facility] Potassium 5.1(H) 3.5 - 5.0 mMol/L 05/22/2024 6:16 AM [facility] Chloride 110(H) 98 - 107 mMol/L 05/22/2024 6:16 AM [facility] Carbon Dioxide 20(L) 22 - 31 mMol/L 05/22/2024 6:16 AM [facility] Anion Gap 8 5 - 15 mMol/L 05/22/2024 6:16 AM [facility] Calcium 9.4 8.5 - 10.5 mg/dL 05/22/2024 6:16 AM [facility] Est Glomerular Filtration Rate - Male 24 mL/min/1. 73 m?? 05/22/2024 6:16 AM [facility] Comment: This patient's estimated GFR [...] Foundation Fasting Status No 05/22/2024 6:16 AM [facility] Blood VENOUS BLOOD SPECIMEN / Unknown IP Care Team Draw / Unknown 05/22/2024 5:18 AM EDT 05/22/2024 5:45 AM EDT Mary De La Fuente MD CHEMISTRY ORDERABL ES [facility] [place] [address] * (ABNORMAL) CBC (with Diff) (05/22/2024 5:18 AM EDT) White Blood Cell 14.70(H) 4.00 - 9.50 x10(3)/mc L 05/22/2024 5:52 AM EDT [facility] Red Blood Cell 2.37(L) 4.58 - 5.54 x10(6)/mc L 05/22/2024 5:52 AM EDT [facility] Hemoglobin 7.2(L) 13.7 - 16.5 g/dL 05/22/2024 5:52 AM EDT [facility] Hematocrit 22.1(L) 40.5 - 48.5 % 05/22/2024 5:52 AM EDT [facility] Mean Cell Volume 93.2(H) 82.9 - 93.1 fL 05/22/2024 5:52 AM EDT [facility] Mean Cell Hemoglobin 30.4 27.5 - 32.1 pg 05/22/2024 5:52 AM EDT [facility] Mean Cell Hemoglobin Concentration 32.6 32.0 - 35.7 g/dL 05/22/2024 5:52 AM EDT [facility] Platelet 366(H) 145 - 357 x10(3)/mc L 05/22/2024 5:52 AM EDT [facility] Mean Platelet Volume 10.9 7.6 - 12.9 fL 05/22/2024 5:52 AM EDT [facility] RDW Standard Deviation 54.6(H) 36.0 - 45.0 fL 05/22/2024 5:52 AM EDT [facility] RDW coefficient of variation 16.3(H) 11.4 - 13.8 % 05/22/2024 5:52 AM [facility] NRBC% auto 0.0 % 05/22/2024 5:[facility] Absolute 0.00 0.00 - 0.00 x10(3)/mc L 05/22/2024 5:52 AM [facility] Neutrophil % 83.2 % 05/22/2024 5:[facility] Neutrophil Absolute 12.22(H) 1.70 - 6.10 x10(3)/mc L 05/22/2024 5:52 AM [facility] Lymph % 4.4 % 05/22/2024 5:52 AM [facility] Lymph Absolute 0.65(L) 0.90 - 3.20 x10(3)/mc L 05/22/2024 5:52 AM [facility] Monocyte % 9.7 % 05/22/2024 5:52 AM [facility] Monocyte Absolute 1.43(H) 0.30 - 0.90 x10(3)/mc L 05/22/2024 5:52 AM [facility] Eos % 1.9 % 05/22/2024 5:52 AM [facility] Eos Absolute 0.28 0.00 - 0.40 x10(3)/mc L 05/22/2024 5:52 AM [facility] Basophil % 0.2 % 05/22/2024 5:52 AM [facility] Baso Absolute 0.03 0.00 - 0.10 x10(3)/mc L 05/22/2024 5:52 AM [facility] Immature Gran % 0.6 % 5:52 AM [facility] Immature Gran Absolute 0.09(H) 0.00 - 0.04 x10(3)/mc L 05/22/2024 5:52 AM [facility] Blood VENOUS BLOOD SPECIMEN / Unknown IP Care Team Draw / Unknown 05/22/2024 5:18 AM EDT 05/22/2024 5:45 AM EDT Mary De La Fuente MD HEMATOLOGY ORDERAB LES Performing Organization Address City/[facility]/ZIP Co de Phone Number [facility] [place] [address] * POC, GLUCOSE (05/22/2024 3:50 AM EDT) Glucometer, POC 140 65 - 199 mg/dL 05/22/2024 3:50 AM EDT [facility] Comment:Supplemental ranges: <140 mg/dL before meals <180 mg/dL all other times of the day. Blood CAPILLARY BLOOD / Unknown 05/22/2024 3:50 AM EDT 05/22/2024 3:50 AM EDT Saba Spears MD POINT OF CARE TEST ORDERABLES Performing Organization Address [facility]/ZIP Co de Phone Number [facility] [place] [address] * Scan Doc: Lab (05/22/2024 12:00 AM EDT) Narrative 05/22/2024 12:00 AM EDT Ordered by an unspecified provider. Scanning Provider MEDIA MGR SCAN EXT O RDR/RSLT * POC, GLUCOSE (05/21/2024 11:28 PM EDT) Glucometer, POC 174 65 - 199 mg/dL 05/21/2024 11:28 PM EDT [facility] Comment:Supplemental ranges: <140 mg/dL before meals <180 mg/dL all other times of the day. Blood CAPILLARY BLOOD / Unknown 05/21/2024 11:28 PM EDT 05/21/2024 11:28 PM EDT Saba Spears MD POINT OF CARE TEST ORDERABLES Performing Organization Address City/[facility]/ZIP Co de Phone Number [facility] [place] [address] * POC, GLUCOSE (05/21/2024 7:49 PM EDT) Glucometer, POC 161 65 - 199 mg/dL 05/21/2024 7:49 PM EDT [facility] Comment:Supplemental ranges: <140 mg/dL before meals <180 mg/dL all other times of the day. Blood CAPILLARY BLOOD / Unknown 05/21/2024 7:49 PM EDT 05/21/2024 7:49 PM EDT Saba Spears MD POINT OF CARE TEST ORDERABLES Performing Organization Address [facility] Co de Phone Number [facility] [place] [address] * POC, GLUCOSE (05/21/2024 5:18 PM EDT) Glucometer, POC 152 65 - 199 mg/dL 05/21/2024 5:18 PM EDT [facility] Comment:Supplemental ranges: <140 mg/dL before meals <180 mg/dL all other times of the day. Blood CAPILLARY BLOOD / Unknown 05/21/2024 5:18 PM EDT 05/21/2024 5:18 PM EDT Saba Spears MD POINT OF CARE TEST ORDERABLES Performing Organization Address City/[facility]/ZIP Co de Phone Number [facility] [place] [address] * (ABNORMAL) Hemogram (05/21/2024 3:00 PM EDT) White Blood Cell 14.25(H) 4.00 - 9.50 x10(3)/mc L 05/21/2024 3:41 PM EDT [facility] Red Blood Cell 2.61(L) 4.58 - 5.54 x10(6)/mc L 05/21/2024 3:41 PM EDT [facility] Hemoglobin 7.8(L) 13.7 - 16.5 g/dL 05/21/2024 3:41 PM EDT [facility] Hematocrit 24.5(L) 40.5 - 48.5 % 05/21/2024 3:41 PM EDT [facility] Mean Cell Volume 93.9(H) 82.9 - 93.1 fL 05/21/2024 3:41 PM EDT [facility] Mean Cell Hemoglobin 29.9 27.5 - 32.1 pg 05/21/2024 3:41 PM EDT [facility] Mean Cell Hemoglobin Concentration 31.8(L) 32.0 - 35.7 g/dL 05/21/2024 3:41 PM EDT [facility] Platelet 456(H) 145 - 357 x10(3)/mc L 05/21/2024 3:41 PM EDT [facility] Mean Platelet Volume 11.1 7.6 - 12.9 fL 05/21/2024 3:41 PM EDT [facility] RDW Standard Deviation 55.2(H) 36.0 - 45.0 fL 05/21/2024 3:41 PM EDT [facility] RDW coefficient of variation 16.1(H) 11.4 - 13.8 % 05/21/2024 3:41 PM EDT [facility] NRBC% auto 0.0 % 05/21/2024 3:41 PM EDT [facility] NRBC Absolute 0.00 0.00 - 0.00 x10(3)/mc L 05/21/2024 3:41 PM EDT [facility] Blood VENOUS BLOOD SPECIMEN / Unknown IP Care Team Draw / Unknown 05/21/2024 3:00 PM EDT 05/21/2024 3:36 PM EDT Saba Spears MD HEMATOLOGY ORDERABL ES [facility] [place] [address] * POC, GLUCOSE (05/21/2024 12:39 PM EDT) Glucometer, POC 144 65 - 199 mg/dL 05/21/2024 12:39 PM EDT [facility] Comment:Supplemental ranges: <140 mg/dL before meals <180 mg/dL all other times of the day. Blood CAPILLARY BLOOD / Unknown 05/21/2024 12:39 PM EDT 05/21/2024 12:39 PM EDT Saba Spears MD POINT OF CARE TEST ORDERABLES [facility] [place] [address] * IR Tunneled Central Venous Access Non-Dialysis (05/21/2024 12:11 PM EDT) Anatomical Region Laterality Modality Chest, Vascular X-Ray Angiograph y Narrative 05/21/2024 5:12 PM EDT Table formatting from the original result was not included. Images from the original result were not included. IR PROCEDURE NOTE Procedure: Tunneled central venous catheter placement. Indication for Procedure: Per Jossy Saldana Rimma is a 69 y.o. male with PMH of CKD, DM, COPD, A.fib, admitted for RLE cellulitis and osteomyelitis s/p 2ng toe amputation requiring halfway IV antibiotic administration who presents to Interventional [...] guidance and a 4Fr sheath placed. ??[address] injection compatible single lumen catheter was [...] * POC, GLUCOSE (05/21/2024 9:12 AM EDT) Pathologist Al Detal Glucometer, POC 144 65 - 199 mg/dL 05/21/2024 9:12 AM EDT [facility] Comment:Supplemental ranges: <140 mg/dL before meals <180 mg/dL all other times of the day. Blood CAPILLARY BLOOD / Unknown 05/21/2024 9:12 AM EDT 05/21/2024 9:12 AM EDT Saba Spears MD POINT OF CARE TEST ORDERABLES [facility] [place] [address] * POC, GLUCOSE (05/21/2024 8:32 AM EDT) Pathologist Al Detal Glucometer, POC 135 65 - 199 mg/dL 05/21/2024 8:32 AM EDT [facility] Comment:Supplemental ranges: <140 mg/dL before meals <180 mg/dL all other times of the day. Blood CAPILLARY BLOOD / Unknown 05/21/2024 8:32 AM EDT 05/21/2024 8:32 AM EDT Saba Spears MD POINT OF CARE TEST ORDERABLES [facility] [place] [address] * (ABNORMAL) Hemogram (05/21/2024 8:27 AM EDT) White Blood Cell 15.77(H) 4.00 - 9.50 x10(3)/mc L 05/21/2024 8:54 AM EDT [facility] Red Blood Cell 2.47(L) 4.58 - 5.54 x10(6)/mc L 05/21/2024 8:54 AM EDT [facility] Hemoglobin 7.5(L) 13.7 - 16.5 g/dL 05/21/2024 8:54 AM T [facility] Hematocrit 23.0(L) 40.5 - 48.5 % 05/21/2024 8:54 AM EDT [facility] Mean Cell Volume 93.1 82.9 - 93.1 fL 05/21/2024 8:54 AM EDT [facility] Mean Cell Hemoglobin 30.4 27.5 - 32.1 pg 05/21/2024 8:54 AM EDT [facility] Mean Cell Hemoglobin Concentration 32.6 32.0 - 35.7 g/dL 05/21/2024 8:54 AM EDT [facility] Platelet 398(H) 145 - 357 x10(3)/mc L 05/21/2024 8:54 AM EDT [facility] Mean Platelet Volume 10.8 7.6 - 12.9 fL 05/21/2024 8:54 AM EDT [facility] RDW Standard Deviation 54.6(H) 36.0 - 45.0 fL 05/21/2024 8:54 AM EDT [facility] RDW coefficient of variation 16.1(H) 11.4 - 13.8 % 05/21/2024 8:54 AM EDT [facility] NRBC% auto 0.0 % 05/21/2024 8:54 AM EDT [facility] NRBC Absolute 0.00 0.00 - 0.00 x10(3)/mc L 05/21/2024 8:54 AM EDT [facility] Blood VENOUS BLOOD SPECIMEN / Unknown IP Care Team Draw / Unknown 05/21/2024 8:27 AM EDT 05/21/2024 8:42 AM EDT Saba Spears MD HEMATOLOGY ORDERABL ES Performing Organization Address City/[facility]/ZIP Co de Phone Number [facility] [place] [address] * (ABNORMAL) CRP, acute inflammation (05/21/2024 4:58 AM EDT) C-Reactive Protein 14.1(H) <=4.9 mg/L 05/21/2024 10:05 AM EDT [facility] Blood VENOUS BLOOD SPECIMEN / Unknown IP Care Team Draw / Unknown 05/21/2024 4:58 AM EDT 05/21/2024 5:17 AM EDT Saba Spears MD CHEMISTRY ORDERABLE S [facility] [place] [address] * Magnesium (05/21/2024 4:58 AM EDT) Magnesium 0.99 0.69 - 1.07 mMol/L 05/21/2024 5:51 AM EDT [facility] Blood VENOUS BLOOD SPECIMEN / Unknown IP Care Team Draw / Unknown 05/21/2024 4:58 AM EDT 05/21/2024 5:17 AM EDT Mary De La Fuente MD CHEMISTRY ORDERABL ES Performing Organization Address [facility] Co de Phone Number [facility] [place] [address] * (ABNORMAL) Phosphorus (05/21/2024 4:58 AM EDT) Phosphorus 6.2(H) 2.5 - 4.5 mg/dL 05/21/2024 5:51 AM EDT [facility] Blood VENOUS BLOOD SPECIMEN / Unknown IP Care Team Draw / Unknown 05/21/2024 4:58 AM EDT 05/21/2024 5:17 AM EDT Mary De La Fuente MD CHEMISTRY ORDERABL ES Performing Organization Address [facility] Co de Phone Number [facility] [place] [address] * (ABNORMAL) Basic Metabolic Panel (05/21/2024 4:58 AM EDT) Glucose 151 65 - 199 mg/dL 05/21/2024 5:51 AM EDT [facility] Comment:Glucose Concentratio n >=200 mg/dL plus symptoms is consistent with Diabetes Mellitus. Blood Urea Nitrogen 110(H) 10 - 20 mg/dL 05/21/2024 5:51 AM EDT [facility] Creatinine 3.04(H) 0.80 - 1.50 mg/dL 05/21/2024 5:51 AM EDT [facility] Sodium 138 135 - 145 mMol/L 05/21/2024 5:51 AM EDT [facility] Potassium 5.1(H) 3.5 - 5.0 mMol/L 05/21/2024 5:51 AM EDT [facility] Chloride 111(H) 98 - 107 mMol/L 05/21/2024 5:51 AM EDT [facility] Carbon Dioxide 18(L) 22 - 31 mMol/L 05/21/2024 5:51 AM EDT [facility] Anion Gap 9 5 - 15 mMol/L 05/21/2024 5:51 AM EDT [facility] Calcium 9.4 8.5 - 10.5 mg/dL 05/21/2024 5:51 AM EDT [facility] Est Glomerular Filtration Rate - Male 21 mL/min/1. 73 m?? 05/21/2024 5:51 AM EDT [facility] Comment: This patient's estimated [...] Fasting Status No 05/21/2024 5:51 AM EDT [facility] Blood VENOUS BLOOD SPECIMEN / Unknown IP Care Team Draw / Unknown 05/21/2024 4:58 AM EDT 05/21/2024 5:17 AM EDT Mary De La Fuente MD CHEMISTRY ORDERABL ES [facility] [place] [address] * (ABNORMAL) CBC (with Diff) (05/21/2024 4:58 AM EDT) White Blood Cell 14.49(H) 4.00 - 9.50 x10(3)/mc L 05/21/2024 5:28 AM EDT [facility] Red Blood Cell 2.54(L) 4.58 - 5.54 x10(6)/mc L 05/21/2024 5:28 AM [facility] Hemoglobin 7.5(L) 13.7 - 16.5 g/dL 05/21/2024 5:28 AM [facility] Hematocrit 23.6(L) 40.5 - 48.5 % 05/21/2024 5:28 AM [facility] Mean Cell Volume 92.9 82.9 - 93.1 fL 05/21/2024 5:28 AM [facility] Mean Cell Hemoglobin 29.5 27.5 - 32.1 pg 05/21/2024 5:28 AM [facility] Mean Cell Hemoglobin Concentration 31.8(L) 32.0 - 35.7 g/dL 05/21/2024 5:28 AM [facility] Platelet 388(H) 145 - 357 x10(3)/mc L 05/21/2024 5:28 AM [facility] Mean Platelet Volume 10.8 7.6 - 12.9 fL 05/21/2024 5:28 AM [facility] RDW Standard Deviation 53.6(H) 36.0 - 45.0 fL 05/21/2024 5:28 AM [facility] RDW coefficient of variation 16.0(H) 11.4 - 13.8 % 05/21/2024 5:28 AM [facility] NRBC% auto 0.0 % 05/21/2024 5:28 AM [facility] NRBC Absolute 0.00 0.00 - 0.00 x10(3)/mc L 05/21/2024 5:28 AM [facility] Neutrophil % 81.6 % 05/21/2024 5:28 AM [facility] Neutrophil Absolute 11.83(H) 1.70 - 6.10 x10(3)/mc L 05/21/2024 5:28 AM [facility] Lymph % 6.1 % 05/21/2024 5:28 AM [facility] [facility] Lymph Absolute 0.89(L) 0.90 - 3.20 x10(3)/mc L 05/21/2024 5:28 AM EDT [facility] Monocyte % 9.4 % 05/21/2024 5:28 AM EDT [facility] Monocyte Absolute 1.36(H) 0.30 - 0.90 x10(3)/mc L 05/21/2024 5:28 AM EDT [facility] Eos % 2.1 % 05/21/2024 5:28 AM EDT [facility] Eos Absolute 0.30 0.00 - 0.40 x10(3)/mc L 05/21/2024 5:28 AM EDT [facility] Basophil % 0.2 % 05/21/2024 5:28 AM EDT [facility] Baso Absolute 0.03 0.00 - 0.10 x10(3)/mc L 05/21/2024 5:28 AM EDT [facility] Immature Gran % 0.6 % 5:28 AM EDT [facility] Immature Gran Absolute 0.08(H) 0.00 - 0.04 x10(3)/mc L 05/21/2024 5:28 AM EDT [facility] Blood VENOUS BLOOD SPECIMEN / Unknown IP Care Team Draw / Unknown 05/21/2024 4:58 AM EDT 05/21/2024 5:17 AM EDT Mary De La Fuente MD HEMATOLOGY ORDERAB LES [facility] [place] [address] * POC, GLUCOSE (05/21/2024 3:45 AM EDT) Glucometer, POC 155 65 - 199 mg/dL 05/21/2024 3:45 AM EDT [facility] Comment:Supplemental ranges: <140 mg/dL before meals <180 mg/dL all other times of the day. Blood CAPILLARY BLOOD / Unknown 05/21/2024 3:45 AM EDT 05/21/2024 3:46 AM EDT Saba Spears MD POINT OF CARE TEST ORDERABLES [facility] [place] [address] * POC, GLUCOSE (05/20/2024 11:44 PM EDT) Glucometer, POC 132 65 - 199 mg/dL 05/20/2024 11:44 PM EDT [facility] Comment:Supplemental ranges: <140 mg/dL before meals <180 mg/dL all other times of the day. Blood CAPILLARY BLOOD / Unknown 05/20/2024 11:44 PM EDT 05/20/2024 11:44 PM EDT Saba Spears MD POINT OF CARE TEST ORDERABLES Performing Organization Address [facility]/ZIP Co de Phone Number [facility] [place] [address] * POC, GLUCOSE (05/20/2024 7:24 PM EDT) Glucometer, POC 166 65 - 199 mg/dL 05/20/2024 7:24 PM EDT [facility] Comment:Supplemental ranges: <140 mg/dL before meals <180 mg/dL all other times of the day. Blood CAPILLARY BLOOD / Unknown 05/20/2024 7:24 PM EDT 05/20/2024 7:25 PM EDT Saba Spears MD POINT OF CARE TEST ORDERABLES [facility] [place] [address] * POC, GLUCOSE (05/20/2024 4:24 PM EDT) Glucometer, POC 170 65 - 199 mg/dL 05/20/2024 4:24 PM EDT [facility] Comment:Supplemental ranges: <140 mg/dL before meals <180 mg/dL all other times of the day. Blood CAPILLARY BLOOD / Unknown 05/20/2024 4:24 PM EDT 05/20/2024 4:24 PM EDT Saba Spears MD POINT OF CARE TEST ORDERABLES Performing Organization Address City/State/[facility] Co de Phone Number [facility] [place] [address] * (ABNORMAL) Hemogram (05/20/2024 12:35 PM EDT) White Blood Cell 14.66(H) 4.00 - 9.50 x10(3)/mc L 05/20/2024 12:50 PM EDT [facility] Red Blood Cell 2.81(L) 4.58 - 5.54 x10(6)/mc L 05/20/2024 12:50 PM EDT [facility] Hemoglobin 8.4(L) 13.7 - 16.5 g/dL 05/20/2024 12:50 PM EDT [facility] Hematocrit 26.2(L) 40.5 - 48.5 % 05/20/2024 12:50 PM EDT [facility] Mean Cell Volume 93.2(H) 82.9 - 93.1 fL 05/20/2024 12:50 PM EDT [facility] Mean Cell Hemoglobin 29.9 27.5 - 32.1 pg 05/20/2024 12:50 PM EDT [facility] Mean Cell Hemoglobin Concentration 32.1 32.0 - 35.7 g/dL 05/20/2024 12:50 PM EDT [facility] Platelet 416(H) 145 - 357 x10(3)/mc L 05/20/2024 12:50 PM EDT [facility] Mean Platelet Volume 10.4 7.6 - 12.9 fL 05/20/2024 12:50 PM EDT [facility] RDW Standard Deviation 52.9(H) 36.0 - 45.0 fL 05/20/2024 12:50 PM EDT [facility] RDW coefficient of variation 15.6(H) 11.4 - 13.8 % 05/20/2024 12:50 PM EDT [facility] NRBC% auto 0.0 % 05/20/2024 12:50 PM EDT [facility] NRBC Absolute 0.00 0.00 - 0.00 x10(3)/mc L 05/20/2024 12:50 PM EDT [facility] Blood VENOUS BLOOD SPECIMEN / Unknown IP Care Team Draw / Unknown 05/20/2024 12:35 PM EDT 05/20/2024 12:43 PM EDT Saba Spears MD HEMATOLOGY ORDERABL ES Performing Organization Address City/[facility]/ZIP Co de Phone Number [facility] [place] [address] * POC, GLUCOSE (05/20/2024 11:52 AM EDT) Glucometer, POC 176 65 - 199 mg/dL 05/20/2024 11:52 AM EDT [facility] Comment:Supplemental ranges: <140 mg/dL before meals <180 mg/dL all other times of the day. Blood CAPILLARY BLOOD / Unknown 05/20/2024 11:52 AM EDT 05/20/2024 11:52 AM EDT Saba Spears MD POINT OF CARE TEST ORDERABLES Performing Organization Address City/[facility]/ZIP Co de Phone Number [facility] [place] [address] * US Retroperitoneal Complete (05/20/2024 10:36 AM EDT) Pathologist Al Detal WORKSTATION ID [id number] RAD Anatomical Region Laterality Modality Abdomen Ultrasound [...] who have questions, please contact the health inspector health care facilities that requested your imaging first. ?Teofilo Ruiz, Staff Physician Electronically Signed Final Report ?? 05/20/2024 11:36 am Narrative 05/20/2024 11:37 AM EDT Renal ? (Signed Final 05/20/2024 11:36 am) PATIENT INFO: ID #: ? [id number] ?: ??[birth year] (69 yrs)(M) Name: ? JOSSY SHANKS ? Visit Date: 05/20/2024 10:34 am PERFORMED BY: Attending: ?Joseph SOTOMAYOR, Teofilo Flores Resident: ? Kuldeep SOTOMAYOR, Trinidad Wright Performed By: ? Lulu Shin RDMS Referred By: ?SABA SPEARS Location: ? [place] SERVICE(S) PROVIDED: URETRO - Retroperitoneal Complete - [id number] ? [id number] INDICATIONS: CKD, increase BUN TECHNIQUE/SCAN QUALITY: Scan [...] 05/20/2024 11:36 am) PATIENT INFO: ID #: [id number] : [birth year] (69 yrs)(M) Name: JOSSY SHANKS Visit Date: 05/20/2024 10:34 am PERFORMED BY: Attending: Joseph SOTOMAYOR, Teofilo Flores Resident: Trinidad Light MD Performed By: Lulu Shin RDMS Referred By: SABA SPEARS Location: [place] SERVICE(S) PROVIDED: URETRO - Retroperitoneal Complete - [id number] INDICATIONS: CKD, increase BUN TECHNIQUE/SCAN QUALITY: Scan [...] who have questions, please contact the health inspector health care facilities that requested your imaging first. Teofilo Ruiz, Staff Physician Electronically Signed Final Report 05/20/2024 11:36 am Saba Spears MD IMG US GEN ORDERABL ES * POC, GLUCOSE (05/20/2024 8:03 AM EDT) [facility] Glucometer, POC 180 65 - 199 mg/dL 05/20/2024 8:03 AM EDT [facility] Comment:Supplemental ranges: <140 mg/dL before meals <180 mg/dL all other times of the day. Blood CAPILLARY BLOOD / Unknown 05/20/2024 8:03 AM EDT 05/20/2024 8:03 AM EDT Saba Spears MD POINT OF CARE TEST ORDERABLES Performing Organization Address [facility]/ZIP Co de Phone Number [facility] [place] [address] * Magnesium (05/20/2024 4:27 AM EDT) Magnesium 0.99 0.69 - 1.07 mMol/L 05/20/2024 5:27 AM EDT [facility] Blood VENOUS BLOOD SPECIMEN / Unknown IP Care Team Draw / Unknown 05/20/2024 4:27 AM EDT 05/20/2024 4:52 AM EDT Mary De La Fuente MD CHEMISTRY ORDERABL ES Performing Organization Address [facility] Co de Phone Number [facility] [place] [address] * (ABNORMAL) Phosphorus (05/20/2024 4:27 AM EDT) Phosphorus 5.1(H) 2.5 - 4.5 mg/dL 05/20/2024 5:27 AM EDT [facility] Blood VENOUS BLOOD SPECIMEN / Unknown IP Care Team Draw / Unknown 05/20/2024 4:27 AM EDT 05/20/2024 4:52 AM EDT Mary De La Fuente MD CHEMISTRY ORDERABL ES Performing Organization Address [facility] Co de Phone Number [facility] [place] [address] * (ABNORMAL) Basic Metabolic Panel (non-fasting) (05/20/2024 4:27 AM EDT) Glucose 173 65 - 199 mg/dL 05/20/2024 6:27 AM EDT [facility] Comment:Glucose Concentratio n >=200 mg/dL plus symptoms is consistent with Diabetes Mellitus. Blood Urea Nitrogen 121(H) 10 - 20 mg/dL 05/20/2024 6:27 AM [facility] Creatinine 2.78(H) 0.80 - 1.50 mg/dL 05/20/2024 6:27 AM [facility] Sodium 138 135 - 145 mMol/L 05/20/2024 6:27 AM [facility] Potassium 5.4(H) 3.5 - 5.0 mMol/L 05/20/2024 6:27 AM [facility] Chloride 109(H) 98 - 107 mMol/L 05/20/2024 6:27 AM [facility] Carbon Dioxide 18(L) 22 - 31 mMol/L 05/20/2024 6:27 AM [facility] Anion Gap 11 5 - 15 mMol/L 05/20/2024 6:27 AM [facility] Calcium 9.4 8.5 - 10.5 mg/dL 05/20/2024 6:27 AM [facility] Est Glomerular Filtration Rate - Male 24 mL/min/1. 73 m?? 05/20/2024 6:27 AM [facility] Comment: This patient's estimated GFR [...] Foundation Fasting Status No 05/20/2024 6:27 AM [facility] Blood VENOUS BLOOD SPECIMEN / Unknown IP Care Team Draw / Unknown 05/20/2024 4:27 AM EDT 05/20/2024 4:52 AM EDT Mary De La Fuente MD CHEMISTRY ORDERABL ES [facility] [place] [address] * (ABNORMAL) CBC (with Diff) (05/20/2024 4:27 AM EDT) White Blood Cell 15.20(H) 4.00 - 9.50 x10(3)/mc L 05/20/2024 5:32 AM EDT [facility] Red Blood Cell 2.69(L) 4.58 - 5.54 x10(6)/mc L 05/20/2024 5:32 AM EDT [facility] Hemoglobin 7.9(L) 13.7 - 16.5 g/dL 05/20/2024 5:32 AM [facility] Hematocrit 25.5(L) 40.5 - 48.5 % 05/20/2024 5:32 AM EDT [facility] Mean Cell Volume 94.8(H) 82.9 - 93.1 fL 05/20/2024 5:32 AM T [facility] Mean Cell Hemoglobin 29.4 27.5 - 32.1 pg 05/20/2024 5:32 AM [facility] Mean Cell Hemoglobin Concentration 31.0(L) 32.0 - 35.7 g/dL 05/20/2024 5:32 AM EDT [facility] Platelet 403(H) 145 - 357 x10(3)/mc L 05/20/2024 5:32 AM EDT [facility] Mean Platelet Volume 10.7 7.6 - 12.9 fL 05/20/2024 5:[facility] Standard Deviation 54.7(H) 36.0 - 45.0 fL 05/20/2024 5:32 AM [facility] RDW coefficient of variation 15.8(H) 11.4 - 13.8 % 05/20/2024 5:32 AM [facility] NRBC% auto 0.0 % 05/20/2024 5:32 AM [facility] NRBC Absolute 0.00 0.00 - 0.00 x10(3)/mc L 05/20/2024 5:32 AM [facility] Neutrophil % 82.1 % 05/20/2024 5:32 AM [facility] Neutrophil Absolute 12.49(H) 1.70 - 6.10 x10(3)/mc L 05/20/2024 5:32 AM [facility] Lymph % 6.3 % 05/20/2024 5:32 AM [facility] Lymph Absolute 0.96 0.90 - 3.20 x10(3)/mc L 05/20/2024 5:32 AM [facility] Monocyte % 8.7 % 05/20/2024 5:32 AM [facility] Monocyte Absolute 1.32(H) 0.30 - 0.90 x10(3)/mc L 05/20/2024 5:32 AM [facility] Eos % 2.0 % 05/20/2024 5:32 AM [facility] Eos Absolute 0.30 0.00 - 0.40 x10(3)/mc L 05/20/2024 5:32 AM [facility] Basophil % 0.3 % 05/20/2024 5:32 AM [facility] Baso Absolute 0.04 0.00 - 0.10 x10(3)/mc L 05/20/2024 5:32 AM [facility] Immature Gran % 0.6 % 5:32 AM [facility] Immature Gran Absolute 0.09(H) 0.00 - 0.04 x10(3)/mc L 05/20/2024 5:32 AM [facility] Blood VENOUS BLOOD SPECIMEN / Unknown IP Care Team Draw / Unknown 05/20/2024 4:27 AM EDT 05/20/2024 4:52 AM EDT Mary De La Fuente MD HEMATOLOGY ORDERAB LES Performing Organization Address City/[facility] Co de Phone Number [facility] [place] [address] * POC, GLUCOSE (05/20/2024 3:11 AM EDT) Glucometer, POC 163 65 - 199 mg/dL 05/20/2024 3:12 AM EDT [facility] Comment:Supplemental ranges: <140 mg/dL before meals <180 mg/dL all other times of the day. Blood CAPILLARY BLOOD / Unknown 05/20/2024 3:11 AM EDT 05/20/2024 3:12 AM EDT Saba Spears MD POINT OF CARE TEST ORDERABLES Performing Organization Address [facility] Co de Phone Number [facility] [place] [address] * POC, GLUCOSE (05/19/2024 11:07 PM EDT) Glucometer, POC 136 65 - 199 mg/dL 05/19/2024 11:07 PM EDT [facility] Comment:Supplemental ranges: <140 mg/dL before meals <180 mg/dL all other times of the day. Blood CAPILLARY BLOOD / Unknown 05/19/2024 11:07 PM EDT 05/19/2024 11:07 PM EDT Saba Spears MD POINT OF CARE TEST ORDERABLES Performing Organization Address City/[facility]/ZIP Co de Phone Number [facility] [place] [address] * POC, GLUCOSE (05/19/2024 8:20 PM EDT) Glucometer, POC 150 65 - 199 mg/dL 05/19/2024 8:20 PM EDT [facility] Comment:Supplemental ranges: <140 mg/dL before meals <180 mg/dL all other times of the day. Blood CAPILLARY BLOOD / Unknown 05/19/2024 8:20 PM EDT 05/19/2024 8:21 PM EDT Saba Spears MD POINT OF CARE TEST ORDERABLES Performing Organization Address City/[facility]/ZIP Co de Phone Number [facility] [place] [address] * (ABNORMAL) Iron and TIBC (05/19/2024 5:09 PM EDT) Iron 58 45 - 160 mcg/dL 05/19/2024 6:56 PM EDT [facility] Unsaturated Iron Binding Capacity 143 110 - 370 mcg/dL 05/19/2024 6:56 PM EDT [facility] TIBC 201(L) 250 - 450 mcg/dL 05/19/2024 6:56 PM EDT [facility] Iron Saturation 29 20 - 50 % 6:56 PM EDT [facility] Blood VENOUS BLOOD SPECIMEN / Unknown IP Care Team Draw / Unknown 05/19/2024 5:09 PM EDT 05/19/2024 5:43 PM EDT Saba Spears MD CHEMISTRY ORDERABLE S Performing Organization Address City/[facility]/ZIP Co de Phone Number [facility] [place] [address] * PTH (05/19/2024 5:09 PM EDT) Parathyroid Hormone 27 15 - 65 pg/mL 05/19/2024 6:15 PM EDT [facility] Blood VENOUS BLOOD SPECIMEN / Unknown IP Care Team Draw / Unknown 05/19/2024 5:09 PM EDT 05/19/2024 5:43 PM EDT Saba Spears MD CHEMISTRY ORDERABLE S [facility] [place] [address] * Ferritin (05/19/2024 5:08 PM EDT) Ferritin 191 31 - 409 ng/ml 05/19/2024 6:24 PM EDT [facility] Blood VENOUS BLOOD SPECIMEN / Unknown IP Care Team Draw / Unknown 05/19/2024 5:08 PM EDT 05/19/2024 5:43 PM EDT Saba Spears MD CHEMISTRY ORDERABLE S [facility] [place] [address] * POC, GLUCOSE (05/19/2024 3:59 PM EDT) Glucometer, POC 185 65 - 199 mg/dL 05/19/2024 3:59 PM EDT [facility] Comment:Supplemental ranges: <140 mg/dL before meals <180 mg/dL all other times of the day. Blood CAPILLARY BLOOD / Unknown 05/19/2024 3:59 PM EDT 05/19/2024 3:59 PM EDT Saba Spears MD POINT OF CARE TEST ORDERABLES [facility] [place] [address] * POC, GLUCOSE (05/19/2024 12:32 PM EDT) Glucometer, POC 143 65 - 199 mg/dL 05/19/2024 12:32 PM EDT [facility] Comment:Supplemental ranges: <140 mg/dL before meals <180 mg/dL all other times of the day. Blood CAPILLARY BLOOD / Unknown 05/19/2024 12:32 PM EDT 05/19/2024 12:32 PM EDT Saba Spears MD POINT OF CARE TEST ORDERABLES Performing Organization Address [facility] Co de Phone Number [facility] [place] [address] * POC, GLUCOSE (05/19/2024 8:12 AM EDT) Glucometer, POC 181 65 - 199 mg/dL 05/19/2024 8:13 AM EDT [facility] Comment:Supplemental ranges: <140 mg/dL before meals <180 mg/dL all other times of the day. Blood CAPILLARY BLOOD / Unknown 05/19/2024 8:12 AM EDT 05/19/2024 8:13 AM EDT Saba Spears MD POINT OF CARE TEST ORDERABLES Performing Organization Address [facility] Co de Phone Number [facility] [place] [address] * (ABNORMAL) Magnesium (05/19/2024 5:11 AM EDT) Magnesium 1.08(H) 0.69 - 1.07 mMol/L 05/19/2024 5:58 AM EDT [facility] Blood VENOUS BLOOD SPECIMEN / Unknown IP Care Team Draw / Unknown 05/19/2024 5:11 AM EDT 05/19/2024 5:30 AM EDT Mary De La Fuente MD CHEMISTRY ORDERABL ES Performing Organization Address City/[facility] Co de Phone Number [facility] [place] [address] * (ABNORMAL) Phosphorus (05/19/2024 5:11 AM EDT) Phosphorus 5.1(H) 2.5 - 4.5 mg/dL 05/19/2024 5:58 AM EDT [facility] Blood VENOUS BLOOD SPECIMEN / Unknown IP Care Team Draw / Unknown 05/19/2024 5:11 AM EDT 05/19/2024 5:30 AM EDT Mary De La Fuente MD CHEMISTRY ORDERABL ES [facility] [place] [address] * (ABNORMAL) Basic Metabolic Panel (non-fasting) (05/19/2024 5:11 AM EDT) Glucose 162 65 - 199 mg/dL 05/19/2024 6:53 AM T [facility] Comment:Glucose Concentratio n >=200 mg/dL plus symptoms is consistent with Diabetes Mellitus. Blood Urea Nitrogen 118(H) 10 - 20 mg/dL 05/19/2024 6:53 AM [facility] Creatinine 2.75(H) 0.80 - 1.50 mg/dL 05/19/2024 6:53 AM [facility] Sodium 136 135 - 145 mMol/L 05/19/2024 6:53 AM [facility] Potassium 5.2(H) 3.5 - 5.0 mMol/L 05/19/2024 6:53 AM [facility] Chloride 108(H) 98 - 107 mMol/L 05/19/2024 6:53 AM [facility] Carbon Dioxide 18(L) 22 - 31 mMol/L 05/19/2024 6:53 AM [facility] Anion Gap 10 5 - 15 mMol/L 05/19/2024 6:53 AM [facility] Calcium 9.3 8.5 - 10.5 mg/dL 05/19/2024 6:53 AM [facility] Est Glomerular Filtration Rate - Male 24 mL/min/1. 73 m?? 05/19/2024 6:53 AM [facility] Comment: This patient's estimated GFR [...] Foundation Fasting Status No 05/19/2024 6:53 AM [facility] Blood VENOUS BLOOD SPECIMEN / Unknown IP Care Team Draw / Unknown 05/19/2024 5:11 AM EDT 05/19/2024 5:30 AM EDT Mary De La Fuente MD CHEMISTRY ORDERABL ES [facility] [place] [address] * (ABNORMAL) CBC (with Diff) (05/19/2024 5:11 AM EDT) White Blood Cell 12.77(H) 4.00 - 9.50 x10(3)/mc L 05/19/2024 5:37 AM [facility] Red Blood Cell 3.11(L) 4.58 - 5.54 x10(6)/mc L 05/19/2024 5:37 AM [facility] Hemoglobin 9.3(L) 13.7 - 16.5 g/dL 05/19/2024 5:37 AM [facility] Hematocrit 28.9(L) 40.5 - 48.5 % 05/19/2024 5:37 AM [facility] Mean Cell Volume 92.9 82.9 - 93.1 fL 05/19/2024 5:37 AM [facility] Mean Cell Hemoglobin 29.9 27.5 - 32.1 pg 05/19/2024 5:37 AM [facility] Mean Cell Hemoglobin Concentration 32.2 32.0 - 35.7 g/dL 05/19/2024 5:37 AM [facility] Platelet 379(H) 145 - 357 x10(3)/mc L 05/19/2024 5:37 AM [facility] Mean Platelet Volume 10.2 7.6 - 12.9 fL 05/19/2024 5:37 AM [facility] RDW Standard Deviation 53.1(H) 36.0 - 45.0 fL 05/19/2024 5:37 AM [facility] RDW coefficient of variation 15.8(H) 11.4 - 13.8 % 05/19/2024 5:37 AM [facility] NRBC% auto 0.0 % 05/19/2024 5:37 AM [facility] NRBC Absolute 0.00 0.00 - 0.00 x10(3)/mc L 05/19/2024 5:37 AM [facility] Neutrophil % 78.9 % 05/19/2024 5:37 AM [facility] Neutrophil Absolute 10.06(H) 1.70 - 6.10 x10(3)/mc L 05/19/2024 5:37 AM [facility] Lymph % 8.1 % 05/19/2024 5:37 AM [facility] Lymph Absolute 1.03 0.90 - 3.20 x10(3)/mc L 05/19/2024 5:37 AM [facility] Monocyte % 10.3 % 05/19/2024 5:37 AM [facility] Monocyte Absolute 1.32(H) 0.30 - 0.90 x10(3)/mc L 05/19/2024 5:37 AM [facility] Eos % 1.6 % 05/19/2024 5:37 AM [facility] Eos Absolute 0.21 0.00 - 0.40 x10(3)/mc L 05/19/2024 5:37 AM [facility] Basophil % 0.2 % 05/19/2024 5:37 AM [facility] Baso Absolute 0.03 0.00 - 0.10 x10(3)/mc L 05/19/2024 5:37 AM EDT [facility] Immature Gran % 0.9 % 5:37 AM EDT [facility] Immature Gran Absolute 0.12(H) 0.00 - 0.04 x10(3)/mc L 05/19/2024 5:37 AM EDT [facility] Blood VENOUS BLOOD SPECIMEN / Unknown IP Care Team Draw / Unknown 05/19/2024 5:11 AM EDT 05/19/2024 5:30 AM EDT Mary De La Fuente MD HEMATOLOGY ORDERAB LES Performing Organization Address City/[facility]/ZIP Co de Phone Number [facility] [place] [address] * POC, GLUCOSE (05/19/2024 3:27 AM EDT) Glucometer, POC 171 65 - 199 mg/dL 05/19/2024 3:28 AM EDT [facility] Comment:Supplemental ranges: <140 mg/dL before meals <180 mg/dL all other times of the day. Blood CAPILLARY BLOOD / Unknown 05/19/2024 3:27 AM EDT 05/19/2024 3:28 AM EDT Saba Spears MD POINT OF CARE TEST ORDERABLES [facility] [place] [address] * POC, GLUCOSE (05/19/2024 12:02 AM EDT) Glucometer, POC 183 65 - 199 mg/dL 05/19/2024 12:02 AM EDT [facility] Comment:Supplemental ranges: <140 mg/dL before meals <180 mg/dL all other times of the day. Blood CAPILLARY BLOOD / Unknown 05/19/2024 12:02 AM EDT 05/19/2024 12:02 AM EDT Saba Spears MD POINT OF CARE TEST ORDERABLES Performing Organization Address [facility] Co de Phone Number [facility] [place] [address] * (ABNORMAL) POC, GLUCOSE (05/18/2024 8:05 PM EDT) Glucometer, POC 207(H) 65 - 199 mg/dL 05/18/2024 8:06 PM EDT [facility] Comment:Supplemental ranges: <140 mg/dL before meals <180 mg/dL all other times of the day. Blood CAPILLARY BLOOD / Unknown 05/18/2024 8:05 PM EDT 05/18/2024 8:06 PM EDT Saba Spears MD POINT OF CARE TEST ORDERABLES Performing Organization Address [facility] Co de Phone Number [facility] [place] [address] * POC, GLUCOSE (05/18/2024 6:14 PM EDT) Glucometer, POC 174 65 - 199 mg/dL 05/18/2024 6:15 PM EDT [facility] Comment:Supplemental ranges: <140 mg/dL before meals <180 mg/dL all other times of the day. Blood CAPILLARY BLOOD / Unknown 05/18/2024 6:14 PM EDT 05/18/2024 6:15 PM EDT Saba Spears MD POINT OF CARE TEST ORDERABLES Performing Organization Address City/[facility] Co de Phone Number [facility] [place] [address] * (ABNORMAL) Basic Metabolic Panel (05/18/2024 5:04 PM EDT) Glucose 170 65 - 199 mg/dL 05/18/2024 6:14 PM EDT [facility] Comment:Glucose Concentratio n >=200 mg/dL plus symptoms is consistent with Diabetes Mellitus. Blood Urea Nitrogen 116(H) 10 - 20 mg/dL 05/18/2024 6:14 PM [facility] Creatinine 2.64(H) 0.80 - 1.50 mg/dL 05/18/2024 6:14 PM [facility] Sodium 139 135 - 145 mMol/L 05/18/2024 6:14 PM [facility] Potassium 5.4(H) 3.5 - 5.0 mMol/L 05/18/2024 6:14 PM [facility] Chloride 110(H) 98 - 107 mMol/L 05/18/2024 6:14 PM [facility] Carbon Dioxide 17(L) 22 - 31 mMol/L 05/18/2024 6:14 PM [facility] Anion Gap 12 5 - 15 mMol/L 05/18/2024 6:14 PM [facility] Calcium 9.2 8.5 - 10.5 mg/dL 05/18/2024 6:14 PM [facility] Est Glomerular Filtration Rate - Male 25 mL/min/1. 73 m?? 05/18/2024 6:14 PM [facility] Comment: This patient's estimated GFR [...] Foundation Fasting Status No 05/18/2024 6:14 PM [facility] Blood VENOUS BLOOD SPECIMEN / Unknown IP Care Team Draw / Unknown 05/18/2024 5:04 PM EDT 05/18/2024 5:11 PM EDT Saba Spears MD CHEMISTRY ORDERABLE S Performing Organization Address City/[facility]/ZIP Co de Phone Number [facility] [place] [address] * (ABNORMAL) POC, GLUCOSE (05/18/2024 11:45 AM EDT) Glucometer, POC 211(H) 65 - 199 mg/dL 05/18/2024 11:45 AM EDT [facility] Comment:Supplemental ranges: <140 mg/dL before meals <180 mg/dL all other times of the day. Blood CAPILLARY BLOOD / Unknown 05/18/2024 11:45 AM EDT 05/18/2024 11:45 AM EDT Saba Spears MD POINT OF CARE TEST ORDERABLES Performing Organization Address [facility]/ZIP Co de Phone Number [facility] [place] [address] * C diff Screen (05/18/2024 11:31 AM EDT) C Diff Interp Negative Negative 05/18/2024 3:02 PM EDT [facility] Comment:Clostridioides diffi cile is not present in the specimen. If patient is having diarrhea suspected to be from an infectious cause, then Soap & Water Contact Precautions are still required. If patient is having diarrhea with no suspected infectious cause use standard precautions. C Diff PCR Negative Negative, Indeterminate 05/18/2024 3:02 PM EDT [facility] Stool STOOL SPECIMEN / Unknown Non Blood Collection / Unknown 05/18/2024 11:31 AM EDT 05/18/2024 12:09 PM EDT Saba Spears MD MICROBIOLOGY - GENE RAL ORDERABLES Performing Organization Address City/[facility]/ZIP Co de Phone Number [facility] [place] [address] * C Diff PCR (05/18/2024 11:31 AM EDT) Stool STOOL SPECIMEN / Unknown Non Blood Collection / Unknown 05/18/2024 11:31 AM EDT 05/18/2024 12:09 PM EDT Saba Spears MD MICROBIOLOGY - GENE RAL ORDERABLES [facility] [place] [address] * Creatinine, urine, random (05/18/2024 8:57 AM EDT) Creatinine, Urine 44 mg/dL 05/18/2024 9:36 AM EDT [facility] Urine URINE SPECIMEN / Unknown Non Blood Collection / Unknown 05/18/2024 8:57 AM EDT 05/18/2024 9:07 AM EDT Saba Spears MD URINE ORDERABLES [facility] [place] [address] * Electrolytes, urine, random (05/18/2024 8:57 AM EDT) Sodium, Urine 50 mMol/L 05/18/2024 12:09 PM EDT [facility] Potassium, Urine 13 mMol/L 05/18/2024 12:09 PM EDT [facility] Chloride, Urine 35 mMol/L 05/18/2024 12:09 PM EDT [facility] Urine URINE SPECIMEN / Unknown Non Blood Collection / Unknown 05/18/2024 8:57 AM EDT 05/18/2024 9:07 AM EDT Saba Spears MD URINE ORDERABLES [facility] [place] [address] * POC, GLUCOSE (05/18/2024 8:34 AM EDT) Glucometer, POC 182 65 - 199 mg/dL 05/18/2024 8:35 AM EDT [facility] Comment:Supplemental ranges: <140 mg/dL before meals <180 mg/dL all other times of the day. Blood CAPILLARY BLOOD / Unknown 05/18/2024 8:34 AM EDT 05/18/2024 8:35 AM EDT Saba Spears MD POINT OF CARE TEST ORDERABLES Performing Organization Address [facility] Co de Phone Number [facility] [place] [address] * POC, GLUCOSE (05/18/2024 4:10 AM EDT) Glucometer, POC 163 65 - 199 mg/dL 05/18/2024 4:10 AM EDT [facility] Comment:Supplemental ranges: <140 mg/dL before meals <180 mg/dL all other times of the day. Blood CAPILLARY BLOOD / Unknown 05/18/2024 4:10 AM EDT 05/18/2024 4:11 AM EDT Saba Spears MD POINT OF CARE TEST ORDERABLES Performing Organization Address City/[facility]/ZIP Co de Phone Number [facility] [place] [address] * (ABNORMAL) CBC (with Diff) (05/18/2024 4:01 AM EDT) White Blood Cell 9.84(H) 4.00 - 9.50 x10(3)/mc L 05/18/2024 4:19 AM EDT [facility] Red Blood Cell 3.24(L) 4.58 - 5.54 x10(6)/mc L 05/18/2024 4:19 AM EDT [facility] Hemoglobin 9.6(L) 13.7 - 16.5 g/dL 05/18/2024 4:19 AM [facility] Hematocrit 31.4(L) 40.5 - 48.5 % 05/18/2024 4:19 AM [facility] Mean Cell Volume 96.9(H) 82.9 - 93.1 fL 05/18/2024 4:19 AM [facility] Mean Cell Hemoglobin 29.6 27.5 - 32.1 pg 05/18/2024 4:19 AM [facility] Mean Cell Hemoglobin Concentration 30.6(L) 32.0 - 35.7 g/dL 05/18/2024 4:19 AM [facility] Platelet 335 145 - 357 x10(3)/mc L 05/18/2024 4:19 AM [facility] Mean Platelet Volume 10.3 7.6 - 12.9 fL 05/18/2024 4:19 AM [facility] RDW Standard Deviation 56.4(H) 36.0 - 45.0 fL 05/18/2024 4:19 AM [facility] RDW coefficient of variation 15.7(H) 11.4 - 13.8 % 05/18/2024 4:19 AM [facility] NRBC% auto 0.2 % 05/18/2024 4:19 AM [facility] NRBC Absolute 0.02(H) 0.00 - 0.00 x10(3)/mc L 05/18/2024 4:19 AM [facility] Neutrophil % 76.5 % 05/18/2024 4:19 AM [facility] Neutrophil Absolute 7.52(H) 1.70 - 6.10 x10(3)/mc L 05/18/2024 4:19 AM [facility] Lymph % 8.0 % 05/18/2024 4:19 AM [facility] Lymph Absolute 0.79(L) 0.90 - 3.20 x10(3)/mc L 05/18/2024 4:19 AM EDT [facility] Monocyte % 12.5 % 05/18/2024 4:19 AM EDT [facility] Monocyte Absolute 1.23(H) 0.30 - 0.90 x10(3)/mc L 05/18/2024 4:19 AM EDT [facility] Eos % 1.9 % 05/18/2024 4:19 AM EDT [facility] Eos Absolute 0.19 0.00 - 0.40 x10(3)/mc L 05/18/2024 4:19 AM EDT [facility] Basophil % 0.2 % 05/18/2024 4:19 AM EDT [facility] Baso Absolute 0.02 0.00 - 0.10 x10(3)/mc L 05/18/2024 4:19 AM EDT [facility] Immature Gran % 0.9 % 4:19 AM EDT [facility] Immature Gran Absolute 0.09(H) 0.00 - 0.04 x10(3)/mc L 05/18/2024 4:19 AM EDT [facility] Blood VENOUS BLOOD SPECIMEN / Unknown IP Care Team Draw / Unknown 05/18/2024 4:01 AM EDT 05/18/2024 4:13 AM EDT Mary De La Fuente MD HEMATOLOGY ORDERAB LES Performing Organization Address City/State/[facility] Co de Phone Number [facility] [place] [address] * (ABNORMAL) Magnesium (05/18/2024 4:00 AM EDT) Magnesium 1.09(H) 0.69 - 1.07 mMol/L 05/18/2024 10:11 AM EDT [facility] Blood VENOUS BLOOD SPECIMEN / Unknown IP Care Team Draw / Unknown 05/18/2024 4:00 AM EDT 05/18/2024 4:13 AM EDT Mary De La Fuente MD CHEMISTRY ORDERABL ES Performing Organization Address City/[facility]/ZIP Co de Phone Number [facility] [place] [address] * (ABNORMAL) Phosphorus (05/18/2024 4:00 AM EDT) Phosphorus 4.7(H) 2.5 - 4.5 mg/dL 05/18/2024 10:11 AM EDT [facility] Blood VENOUS BLOOD SPECIMEN / Unknown IP Care Team Draw / Unknown 05/18/2024 4:00 AM EDT 05/18/2024 4:13 AM EDT Mary De La Fuente MD CHEMISTRY ORDERABL ES Performing Organization Address [facility] Co de Phone Number [facility] [place] [address] * (ABNORMAL) Basic Metabolic Panel (non-fasting) (05/18/2024 4:00 AM EDT) Glucose 144 65 - 199 mg/dL 05/18/2024 10:11 AM EDT [facility] Comment:Glucose Concentratio n >=200 mg/dL plus symptoms is consistent with Diabetes Mellitus. Blood Urea Nitrogen 105(H) 10 - 20 mg/dL 05/18/2024 10:11 AM EDT [facility] Creatinine 2.69(H) 0.80 - 1.50 mg/dL 05/18/2024 10:11 AM EDT [facility] Sodium 134(L) 135 - 145 mMol/L 05/18/2024 10:11 AM EDT [facility] Potassium 5.6(H) 3.5 - 5.0 mMol/L 05/18/2024 10:11 AM EDT [facility] Chloride 107 98 - 107 mMol/L 05/18/2024 10:11 AM EDT [facility] Carbon Dioxide 11(L) 22 - 31 mMol/L 05/18/2024 10:11 AM EDT [facility] Anion Gap 16(H) 5 - 15 mMol/L 05/18/2024 10:11 AM EDT [facility] Calcium 8.8 8.5 - 10.5 mg/dL 05/18/2024 10:11 AM EDT [facility] Est Glomerular Filtration Rate - Male 25 mL/min/1. 73 m?? 05/18/2024 10:11 AM EDT [facility] Comment: This patient's estimated [...] Fasting Status No 05/18/2024 10:11 AM EDT [facility] Blood VENOUS BLOOD SPECIMEN / Unknown IP Care Team Draw / Unknown 05/18/2024 4:00 AM EDT 05/18/2024 4:13 AM EDT Mary De La Fuente MD CHEMISTRY ORDERABL ES [facility] [place] [address] * (ABNORMAL) POC, GLUCOSE (05/17/2024 11:30 PM EDT) [facility] Signature Glucometer, POC 232(H) 65 - 199 mg/dL 05/17/2024 11:30 PM EDT [facility] Comment:Supplemental ranges: <140 mg/dL before meals <180 mg/dL all other times of the day. Blood CAPILLARY BLOOD / Unknown 05/17/2024 11:30 PM EDT 05/17/2024 11:30 PM EDT Saba Spears MD POINT OF CARE TEST ORDERABLES Performing Organization Address City/[facility] Co de Phone Number [facility] [place] [address] * POC, GLUCOSE (05/17/2024 8:12 PM EDT) Glucometer, POC 161 65 - 199 mg/dL 05/17/2024 8:12 PM EDT [facility] Comment:Supplemental ranges: <140 mg/dL before meals <180 mg/dL all other times of the day. Blood CAPILLARY BLOOD / Unknown 05/17/2024 8:12 PM EDT 05/17/2024 8:13 PM EDT Saba Spears MD POINT OF CARE TEST ORDERABLES Performing Organization Address [facility] Co de Phone Number [facility] [place] [address] * POC, GLUCOSE (05/17/2024 5:35 PM EDT) Glucometer, POC 167 65 - 199 mg/dL 05/17/2024 5:35 PM EDT [facility] Comment:Supplemental ranges: <140 mg/dL before meals <180 mg/dL all other times of the day. Blood CAPILLARY BLOOD / Unknown 05/17/2024 5:35 PM EDT 05/17/2024 5:35 PM EDT Saba Spears MD POINT OF CARE TEST ORDERABLES Performing Organization Address City/[facility]/ZIP Co de Phone Number [facility] [place] [address] * POC, GLUCOSE (05/17/2024 12:50 PM EDT) Glucometer, POC 147 65 - 199 mg/dL 05/17/2024 12:50 PM EDT [facility] Comment:Supplemental ranges: <140 mg/dL before meals <180 mg/dL all other times of the day. Blood CAPILLARY BLOOD / Unknown 05/17/2024 12:50 PM EDT 05/17/2024 12:50 PM EDT Saba Spears MD POINT OF CARE TEST ORDERABLES Performing Organization Address [facility]/ZIP Co de Phone Number [facility] [place] [address] * POC, GLUCOSE (05/17/2024 8:20 AM EDT) Glucometer, POC 139 65 - 199 mg/dL 05/17/2024 8:21 AM EDT [facility] Comment:Supplemental ranges: <140 mg/dL before meals <180 mg/dL all other times of the day. Blood CAPILLARY BLOOD / Unknown 05/17/2024 8:20 AM EDT 05/17/2024 8:21 AM EDT Treva Diaz MD POINT OF CARE TEST ORDERABLES Performing Organization Address [facility]/ZIP Co de Phone Number [facility] [place] [address] * (ABNORMAL) Magnesium (05/17/2024 5:49 AM EDT) Magnesium 1.14(H) 0.69 - 1.07 mMol/L 05/17/2024 6:58 AM EDT [facility] Blood IP Care Team Dra reilly / Nick 05/17/2024 5:49 AM EDT 05/17/2024 6:13 AM EDT Mary De La Fuente MD CHEMISTRY ORDERABL ES Performing Organization Address [facility] Co de Phone Number [facility] [place] [address] * (ABNORMAL) Phosphorus (05/17/2024 5:49 AM EDT) Phosphorus 5.6(H) 2.5 - 4.5 mg/dL 05/17/2024 6:58 AM EDT [facility] Blood IP Care Team w / Nick 05/17/2024 5:49 AM EDT 05/17/2024 6:13 AM EDT Mary De La Fuente MD CHEMISTRY ORDERABL ES [facility] [place] [address] * (ABNORMAL) Basic Metabolic Panel (non-fasting) (05/17/2024 5:49 AM EDT) Glucose 131 65 - 199 mg/dL 05/17/2024 6:58 AM EDT [facility] Comment:Glucose Concentratio n >=200 mg/dL plus symptoms is consistent with Diabetes Mellitus. Blood Urea Nitrogen 86(H) 10 - 20 mg/dL 05/17/2024 6:58 AM EDT [facility] Creatinine 3.07(H) 0.80 - 1.50 mg/dL 05/17/2024 6:58 AM EDT [facility] Sodium 134(L) 135 - 145 mMol/L 05/17/2024 6:58 AM T [facility] Potassium 5.0 3.5 - 5.0 mMol/L 05/17/2024 6:58 AM EDT [facility] Chloride 103 98 - 107 mMol/L 05/17/2024 6:58 AM [facility] Carbon Dioxide 21(L) 22 - 31 mMol/L 05/17/2024 6:58 AM EDT [facility] Anion Gap 10 5 - 15 mMol/L 05/17/2024 6:58 AM T [facility] Calcium 8.7 8.5 - 10.5 mg/dL 05/17/2024 6:58 AM EDT [facility] Est Glomerular Filtration Rate - Male 21 mL/min/1. 73 m?? 05/17/2024 6:58 AM EDT [facility] Comment: This patient's estimated [...] Fasting Status No 05/17/2024 6:58 AM EDT [facility] Blood IP Care Team Gia w / Unknown 05/17/2024 5:49 AM EDT 05/17/2024 6:13 AM EDT Mary De La Fuente MD CHEMISTRY ORDERABL ES [facility] [place] [address] * (ABNORMAL) CBC (with Diff) (05/17/2024 5:49 AM EDT) White Blood Cell 8.61 4.00 - 9.50 x10(3)/mc L [facility]24 [facility] Red Blood Cell 3.54(L) 4.58 - 5.54 x10(6)/mc L 05/17/2024 6:28 AM [facility] Hemoglobin 10.5(L) 13.7 - 16.5 g/dL 05/17/2024 6:28 AM [facility] Hematocrit 33.9(L) 40.5 - 48.5 % 05/17/2024 6:28 AM EDT [facility] Mean Cell Volume 95.8(H) 82.9 - 93.1 fL 05/17/2024 6:28 AM [facility] Mean Cell Hemoglobin 29.7 27.5 - 32.1 pg 05/17/2024 6:28 AM [facility] Mean Cell Hemoglobin Concentration 31.0(L) 32.0 - 35.7 g/dL 05/17/2024 6:28 AM [facility] Platelet 341 145 - 357 x10(3)/mc L 05/17/2024 6:28 AM [facility] Mean Platelet Volume 10.4 7.6 - 12.9 fL 05/17/2024 6:28 AM [facility] RDW Standard Deviation 56.5(H) 36.0 - 45.0 fL 05/17/2024 6:28 AM [facility] RDW coefficient of variation 15.7(H) 11.4 - 13.8 % 05/17/2024 6:28 AM [facility] NRBC% auto 0.0 % 05/17/2024 6:28 AM [facility] NRBC Absolute 0.00 0.00 - 0.00 x10(3)/mc L 05/17/2024 6:28 AM [facility] Neutrophil % 76.3 % 05/17/2024 6:28 AM [facility] Neutrophil Absolute 6.57(H) 1.70 - 6.10 x10(3)/mc L 05/17/2024 6:28 AM [facility] Lymph % 9.9 % 05/17/2024 6:28 AM [facility] Lymph Absolute 0.85(L) 0.90 - 3.20 x10(3)/mc L 05/17/2024 6:28 AM [facility] Monocyte % 11.7 % 05/17/2024 6:28 AM [facility] Monocyte Absolute 1.01(H) 0.30 - 0.90 x10(3)/mc L 05/17/2024 6:28 AM [facility] Eos % 0.8 % 05/17/2024 6:28 AM [facility] Eos Absolute 0.07 0.00 - 0.40 x10(3)/mc L 05/17/2024 6:28 AM [facility] Basophil % 0.1 % 05/17/2024 6:28 AM EDT [facility] Baso Absolute 0.01 0.00 - 0.10 x10(3)/mc L 05/17/2024 6:28 AM EDT [facility] Immature Gran % 1.2 % 6:28 AM EDT [facility] Immature Gran Absolute 0.10(H) 0.00 - 0.04 x10(3)/mc L 05/17/2024 6:28 AM EDT [facility] Blood IP Care Team Dra reilly / Nick 05/17/2024 5:49 AM EDT 05/17/2024 6:13 AM EDT Mary De La Fuente MD HEMATOLOGY ORDERAB LES Performing Organization Address City/[facility]/ZIP Co de Phone Number [facility] [place] [address] * Vancomycin Level, Random (05/17/2024 5:49 AM EDT) Vancomycin, Random 22.4 mg/L 2023 6:58 AM EDT [facility] Comment:This level is for de termination of the patient's vancomycin dvyv-uuexd-rcl-curve (AUC) value. Contact the inpatient pharmacy for interpretation. Blood IP Care Team Dra reilly / Nick 05/17/2024 5:49 AM EDT 05/17/2024 6:13 AM EDT Treva Diaz MD CHEMISTRY ORDERABL ES [facility] [place] [address] * POC, GLUCOSE (05/17/2024 3:54 AM EDT) Glucometer, POC 135 65 - 199 mg/dL 05/17/2024 3:55 AM EDT [facility] Comment:Supplemental ranges: <140 mg/dL before meals <180 mg/dL all other times of the day. Blood CAPILLARY BLOOD / Unknown 05/17/2024 3:54 AM EDT 05/17/2024 3:55 AM EDT Treva Diaz MD POINT OF CARE TEST ORDERABLES [facility] [place] [address] * POCT Glucose (05/16/2024 11:46 PM EDT) Glucose, POC 148 65 - 199 mg/dL [facility] Comment: Supplemental ranges: <140 mg/dL before meals <180 mg/dL all other times of the day Blood 05/16/2024 11:4 6 PM EDT 05/16/2024 11:46 PM EDT Treva Diaz MD POINT OF CARE TEST ORDERABLES [facility] [place] [address] * POCT Glucose (05/16/2024 9:06 PM EDT) Glucose, POC 191 65 - 199 mg/dL [facility] Comment: Supplemental ranges: <140 mg/dL before meals <180 mg/dL all other times of the day Blood 05/16/2024 9:06 PM EDT 05/16/2024 9:06 PM EDT Treva Diaz MD POINT OF CARE TEST ORDERABLES [facility] [place] [address] * POCT Glucose (05/16/2024 8:04 PM EDT) Glucose, POC 199 65 - 199 mg/dL [facility] Comment: Supplemental ranges: <140 mg/dL before meals <180 mg/dL all other times of the day Blood 05/16/2024 8:04 PM EDT 05/16/2024 8:04 PM EDT Treva Diaz MD POINT OF CARE TEST ORDERABLES [facility] [place] [address] * POCT Glucose (05/16/2024 4:51 PM EDT) Glucose, POC 162 65 - 199 mg/dL [facility] Comment: Supplemental ranges: <140 mg/dL before meals <180 mg/dL all other times of the day Blood 05/16/2024 4:51 PM EDT 05/16/2024 4:51 PM EDT Treva Diaz MD POINT OF CARE TEST ORDERABLES Performing Organization Address City/[facility]/ZIP Co de Phone Number [facility] [place] [address] * POCT Glucose (05/16/2024 12:48 PM EDT) Glucose, POC 153 65 - 199 mg/dL [facility] Comment: Supplemental ranges: <140 mg/dL before meals <180 mg/dL all other times of the day Blood 05/16/2024 12:4 8 PM EDT 05/16/2024 12:48 PM EDT Treva Diaz MD POINT OF CARE TEST ORDERABLES [facility] [place] [address] * POCT Glucose (05/16/2024 8:45 AM EDT) Glucose, POC 165 65 - 199 mg/dL [facility] Comment: Supplemental ranges: <140 mg/dL before meals <180 mg/dL all other times of the day Blood 05/16/2024 8:45 AM EDT 05/16/2024 8:45 AM EDT Treva Diaz MD POINT OF CARE TEST ORDERABLES [facility] [place] [address] * (ABNORMAL) Differential, Automated (05/16/2024 5:14 AM EDT) Neutrophil % 79.4 % [facility] Neutrophil Absolute 9.22(H) 1.70 - 6.10 x10(3)/mc L [facility] Lymph % 6.6 % [facility] Lymphocytes Abs 0.8(L) 0.9 - 3.2 x10(3)/ L [facility] Monocyte % 9.5 % [facility] Monocyte Abs 1.1(H) 0.3 - 0.9 x10(3)/mc L [facility] Eos % 0.0 % [facility] Eosinophils Abs 0.0 0.0 - 0.4 x10(3)/ L [facility] Basophil % 0.2 % [facility] Baso Absolute 0.0 0.0 - 0.1 x10(3)/mc L [facility] Immature Gran % 4.30 % [facility] Comment: Immature granulocytes(IG's)percentage and absolute count will include metamyelocytes, myelocytes, and promyelocytes. Blood smears from CBCs yielding IG's will be scanned manually for concordance. If this scan disagrees with the automated IG or if promyelocytes are noted, a manual differential will be performed. Immature Gran Absolute 0.50(H) 0.00 - 0.04 x10(3)/mc L [facility] Blood 05/16/2024 5:14 AM EDT 05/16/2024 5:38 AM EDT Narrative Resulting Agency Comment Spec In Lab Carlotta Davis MD HEMATOLOGY OR DERABLES Performing Organization Address City/[facility]/ZIP [place] [address] * (ABNORMAL) Hemogram (05/16/2024 5:14 AM EDT) White Blood Cell 11.6(H) 4.0 - 9.5 x10(3)/mc L [facility] Red Blood Cell 3.59(L) 4.58 - 5.54 x10(6)/mc L [facility] Hemoglobin 10.5(L) 13.7 - 16.5 g/dL [facility] Hematocrit 33.8(L) 40.5 - 48.5 % [facility] Mean Cell Volume 94.2(H) 82.9 - 93.1 [facility] Mean Cell Hemoglobin 29.2 27.5 - 32.1 pg [facility] Mean Cell Hemoglobin Concentration 31.1(L) 32.0 - 35.7 g/dL [facility] Platelet 317 145 - 357 x10(3)/mc L [facility] RDW Standard Deviation 55.1(H) 36.0 - 45.0 [facility] RDW coefficient of variation 15.9(H) 11.4 - 13.8 % [facility] Mean Platelet Volume 10.6 7.6 - 12.9 [facility] NRBC% auto 0.0 % [facility] NRBC Absolute 0.000 0.000 - 0.000 x10(3)/mc L [facility] Blood 05/16/2024 5:14 AM EDT 05/16/2024 5:38 AM EDT Narrative Resulting Agency Comment Spec In Lab Carlotta Davis MD HEMATOLOGY OR DERABLES Performing Organization Address City/[facility]/ZIP Co de Phone Number [facility] [place] [address] * (ABNORMAL) Magnesium (05/16/2024 5:14 AM EDT) Magnesium 1.22(H) 0.69 - 1.07 mmol/L [facility] Blood 05/16/2024 5:14 AM EDT 05/16/2024 5:38 AM EDT Narrative Resulting Agency Comment Spec In Lab Mary De La Fuente MD CHEMISTRY ORDERABL ES Performing Organization Address [facility] Co de Phone Number [facility] [place] [address] * (ABNORMAL) Phosphorus (05/16/2024 5:14 AM EDT) Pathologist [facility] Phosphorus 6.3(H) 2.5 - 4.5 mg/dL [facility] Blood 05/16/2024 5:14 AM EDT 05/16/2024 5:38 AM EDT Narrative Resulting Agency Comment Spec In Lab Mary De La Fuente MD CHEMISTRY ORDERABL ES Performing Organization Address [facility] Co de Phone Number [facility] [place] [address] * (ABNORMAL) Basic Metabolic Panel (non-fasting) (05/16/2024 5:14 AM EDT) Pathologist [facility] Glucose 154 65 - 199 mg/dL [facility] Comment:Diabetes: >=200 mg/d L plus symptoms Blood Urea Nitrogen 74(H) 10 - 20 mg/dL [facility] Creatinine 2.88(H) 0.80 - 1.50 mg/dL [facility] Sodium 133(L) 135 - 145 mmol/L [facility] Potassium 5.0 3.5 - 5.0 mmol/L [facility] Comment: Please note: ??Patients with WBC >100,000 may have falsely elevated Potassium levels. ??For accurate Potassium quantification in these patients send serum separator tube (gold top) for subsequent determinations. ??Contact the Clinical Chemistry Laboratory if there are any questions. Chloride 101 98 - 107 mmol/L [facility] Carbon Dioxide 21(L) 22 - 31 mmol/L [facility] Anion Gap 11 5 - 15 mmol/L [facility] Calcium 8.8 8.5 - 10.5 mg/dL [facility] Est Glomerular Filtration Rate 23(L) >=60 mL/min/1. 73 m?? [facility] Comment: This patient's estimated [...] MD CHEMISTRY ORDERABL ES Performing Organization Address [facility] Co de Phone Number [facility] [place] [address] * Vancomycin Level, Random (05/16/2024 5:14 AM EDT) Vancomycin, Random 29.1 mg/L [facility] Comment: This level is for determination of the patient's vancomycin pdmx-rnvvf-yqk-curve (AUC) value. Contact the inpatient pharmacy for interpretation. Blood 05/16/2024 5:14 AM EDT 05/16/2024 5:38 AM EDT Treva Diaz MD CHEMISTRY ORDERABL ES Performing Organization Address City/[facility]/ZIP Co de Phone Number [facility] [place] [address] * POCT Glucose (05/16/2024 3:53 AM EDT) Glucose, POC 166 65 - 199 mg/dL [facility] Comment: Supplemental ranges: <140 mg/dL before meals <180 mg/dL all other times of the day Blood 05/16/2024 3:53 AM EDT 05/16/2024 3:53 AM EDT Treva Diaz MD POINT OF CARE TEST ORDERABLES [facility] [place] [address] * POCT Glucose (05/15/2024 11:41 PM EDT) Glucose, POC 171 65 - 199 mg/dL [facility] Comment: Supplemental ranges: <140 mg/dL before meals <180 mg/dL all other times of the day Blood 05/15/2024 11:4 1 PM EDT 05/15/2024 11:41 PM EDT Treva Diaz MD POINT OF CARE TEST ORDERABLES [facility] [place] [address] * POCT Glucose (05/15/2024 10:32 PM EDT) Glucose, POC 183 65 - 199 mg/dL [facility] Comment: Supplemental ranges: <140 mg/dL before meals <180 mg/dL all other times of the day Blood 05/15/2024 10:3 2 PM EDT 05/15/2024 10:32 PM EDT Treva Diaz MD POINT OF CARE TEST ORDERABLES [facility] [place] [address] * POCT Glucose (05/15/2024 7:53 PM EDT) Glucose, POC 187 65 - 199 mg/dL [facility] Comment: Supplemental ranges: <140 mg/dL before meals <180 mg/dL all other times of the day Blood 05/15/2024 7:53 PM EDT 05/15/2024 7:53 PM EDT Treva Diaz MD POINT OF CARE TEST ORDERABLES Performing Organization Address [facility]/ZIP Co de Phone Number [facility] [place] [address] * MRSA PCR Screen ([facility]/CGP/APD/NLH) (05/15/2024 4:15 PM EDT) [facility] MRSA PCR Negative Negative [facility] MRSA (Interp) Methicillin-resist ant Staphylococcus aureus (MRSA) is NOT DETECTED The MRSA target DNA sequences (mec and SCC) were not detected within the acceptable ranges using the Xpert MRSA NxG on the GeneXpert Dx System (Smule). This suggests the absence of MRSA in the patient specimen submitted for testing. This test is cleared by the U.S. Food and Drug Administration for clinical use and its performance characteristics have been verified by the [facility] at [facility]. This result does not rule out the presence of any other organisms. Rare false negative results may occur if MRSA is present at low concentrations with much higher concentrations of other organisms including MRSE or S. aureus with an empty SCC cassette. [facility] Comment: [VERIFIED DATE]05.15.24 Verified By:Lupe Jensen (Electronic Signature) Nasopharyngeal Swab 05/15/20 4:15 PM EDT 05/15/2024 6:28 PM EDT Comment:Specimen Type->Nasop haryngeal Swab Narrative Resulting Agency Comment Spec In Lab Treva Diaz MD MOLECULAR ORDERABL ES Performing Organization Address [facility]/ZIP Co de Phone Number [facility] [place] [address] * (ABNORMAL) POCT Glucose (05/15/2024 3:20 PM EDT) Glucose, POC 224(H) 65 - 199 mg/dL [facility] Comment: Supplemental ranges: <140 mg/dL before meals <180 mg/dL all other times of the day Blood 05/15/2024 3:20 PM EDT 05/15/2024 3:20 PM EDT Treva Diaz MD POINT OF CARE TEST ORDERABLES [facility] [place] [address] * (ABNORMAL) POCT Glucose (05/15/2024 11:39 AM EDT) Glucose, POC 213(H) 65 - 199 mg/dL [facility] Comment: Supplemental ranges: <140 mg/dL before meals <180 mg/dL all other times of the day Blood 05/15/2024 11:3 9 AM EDT 05/15/2024 11:39 AM EDT Treva Diaz MD POINT OF CARE TEST ORDERABLES [facility] [place] [address] * POCT Glucose (05/15/2024 8:02 AM EDT) Glucose, POC 190 65 - 199 mg/dL [facility] Comment: Supplemental ranges: <140 mg/dL before meals <180 mg/dL all other times of the day Blood 05/15/2024 8:02 AM EDT 05/15/2024 8:02 AM EDT Treva Diaz MD POINT OF CARE TEST ORDERABLES [facility] [place] [address] * (ABNORMAL) Differential, Automated (05/15/2024 5:12 AM EDT) Neutrophil % 85.3 % [facility] Neutrophil Absolute 11.37(H) 1.70 - 6.10 x10(3)/mc L [facility] Lymph % 3.7 % [facility] Lymphocytes Abs 0.5(L) 0.9 - 3.2 x10(3)/mc L [facility] Monocyte % 9.1 % [facility] Monocyte Abs 1.2(H) 0.3 - 0.9 x10(3)/mc L [facility] Eos % 0.0 % [facility] Eosinophils Abs 0.0 0.0 - 0.4 x10(3)/[facility] Basophil % 0.1 % [facility] Baso Absolute 0.0 0.0 - 0.1 x10(3)/mc L [facility] Immature Gran % 1.80 % [facility] Comment: Immature granulocytes(IG's)percentage and absolute count will include metamyelocytes, myelocytes, and promyelocytes. Blood smears from CBCs yielding IG's will be scanned manually for concordance. If this scan disagrees with the automated IG or if promyelocytes are noted, a manual differential will be performed. Immature Gran Absolute 0.24(H) 0.00 - 0.04 x10(3)/mc L [facility] Blood 05/15/2024 5:12 AM EDT 05/15/2024 5:38 AM EDT Narrative Resulting Agency Comment Spec In Lab Carlotta Davis MD HEMATOLOGY OR DERABLES [facility] [place] [address] * (ABNORMAL) Hemogram (05/15/2024 5:12 AM EDT) White Blood Cell 13.4(H) 4.0 - 9.5 x10(3)/[facility] Red Blood Cell 3.58(L) 4.58 - 5.54 x10(6)/ L [facility] Hemoglobin 10.9(L) 13.7 - 16.5 g/dL [facility] Hematocrit 34.1(L) 40.5 - 48.5 % [facility] Mean Cell Volume 95.3(H) 82.9 - 93.1 fL [facility] Mean Cell Hemoglobin 30.4 27.5 - 32.1 pg [facility] Mean Cell Hemoglobin Concentration 32.0 32.0 - 35.7 g/dL [facility] Platelet 227 145 - 357 x10(3)/[facility] RDW Standard Deviation 55.8(H) 36.0 - 45.0 [facility] RDW coefficient of variation 15.8(H) 11.4 - 13.8 % [facility] Mean Platelet Volume 10.7 7.6 - 12.9 [facility] NRBC% auto 0.0 % [facility] NRBC Absolute 0.000 0.000 - 0.000 x10(3)/[facility] Blood 05/15/2024 5:12 AM EDT 05/15/2024 5:38 AM EDT Narrative Resulting Agency Comment Spec In Lab Carlotta Davis MD HEMATOLOGY OR DERABLES [facility] [place] [address] * (ABNORMAL) Magnesium (05/15/2024 5:12 AM EDT) Magnesium 1.21(H) 0.69 - 1.07 mmol/L [facility] Blood 05/15/2024 5:12 AM EDT 05/15/2024 5:38 AM EDT Narrative Resulting Agency Comment Spec In Lab Mary De La Fuente MD CHEMISTRY ORDERABL ES Performing Organization Address [facility]/ZIP Co de Phone Number [facility] [place] [address] * (ABNORMAL) Phosphorus (05/15/2024 5:12 AM EDT) Phosphorus 6.5(H) 2.5 - 4.5 mg/dL [facility] Comment:result rechecked-HN Blood 05/15/2024 5:12 AM EDT 05/15/2024 5:38 AM EDT Narrative Resulting Agency Comment Spec In Lab Mary De La Fuente MD CHEMISTRY ORDERABL ES Performing Organization Address [facility] Co de Phone Number [facility] [place] [address] * (ABNORMAL) Basic Metabolic Panel (non-fasting) (05/15/2024 5:12 AM EDT) Glucose 217(H) 65 - 199 mg/dL [facility] Comment:Diabetes: >=200 mg/d L plus symptoms Blood Urea Nitrogen 58(H) 10 - 20 mg/dL [facility] Creatinine 2.46(H) 0.80 - 1.50 mg/dL [facility] Comment:result rechecked-HN Sodium 135 135 - 145 mmol/L [facility] Potassium 5.2(H) 3.5 - 5.0 mmol/L [facility] Comment: Please note: ??Patients with WBC >100,000 may have falsely elevated Potassium levels. ??For accurate Potassium quantification in these patients send serum separator tube (gold top) for subsequent determinations. ??Contact the Clinical Chemistry Laboratory if there are any questions. Chloride 100 98 - 107 mmol/L [facility] Carbon Dioxide 23 22 - 31 mmol/L [facility] Anion Gap 12 5 - 15 mmol/L [facility] Calcium 8.8 8.5 - 10.5 mg/dL [facility] Est Glomerular Filtration Rate 27(L) >=60 mL/min/1. 73 m?? [facility] Comment: This patient's estimated [...] MD CHEMISTRY ORDERABL ES Performing Organization Address City/[facility]/ZIP Co de Phone Number [facility] [place] [address] * (ABNORMAL) POCT Glucose (05/15/2024 4:55 AM EDT) Glucose, POC 223(H) 65 - 199 mg/dL [facility] Comment: Supplemental ranges: <140 mg/dL before meals <180 mg/dL all other times of the day Blood 05/15/2024 4:55 AM EDT 05/15/2024 4:55 AM EDT Treva Diaz MD POINT OF CARE TEST ORDERABLES [facility] [place] [address] * (ABNORMAL) POCT Glucose (05/15/2024 2:51 AM EDT) Glucose, POC 279(H) 65 - 199 mg/dL [facility] Comment: Supplemental ranges: <140 mg/dL before meals <180 mg/dL all other times of the day Blood 05/15/2024 2:51 AM EDT 05/15/2024 2:51 AM EDT Treva Diaz MD POINT OF CARE TEST ORDERABLES [facility] [place] [address] * (ABNORMAL) POCT Glucose (05/14/2024 9:03 PM EDT) Glucose, POC 257(H) 65 - 199 mg/dL [facility] Comment: Supplemental ranges: <140 mg/dL before meals <180 mg/dL all other times of the day Blood 05/14/2024 9:03 PM EDT 05/14/2024 9:03 PM EDT Treva Diaz MD POINT OF CARE TEST ORDERABLES Performing Organization Address City/[facility]/ZIP Co de Phone Number [facility] [place] [address] * (ABNORMAL) POCT Glucose (05/14/2024 7:15 PM EDT) Glucose, POC 207(H) 65 - 199 mg/dL [facility] Comment: Supplemental ranges: <140 mg/dL before meals <180 mg/dL all other times of the day Blood 05/14/2024 7:15 PM EDT 05/14/2024 7:15 PM EDT Treva Diaz MD POINT OF CARE TEST ORDERABLES [facility] [place] [address] * POCT Glucose (05/14/2024 4:47 PM EDT) Glucose, POC 188 65 - 199 mg/dL [facility] Comment: Supplemental ranges: <140 mg/dL before meals <180 mg/dL all other times of the day Blood 05/14/2024 4:47 PM EDT 05/14/2024 4:47 PM EDT Treva Diaz MD POINT OF CARE TEST ORDERABLES Performing Organization Address [facility]/ZIP Co de Phone Number [facility] [place] [address] * POCT Glucose (05/14/2024 1:21 PM EDT) Glucose, POC 163 65 - 199 mg/dL [facility] Comment: Supplemental ranges: <140 mg/dL before meals <180 mg/dL all other times of the day Blood 05/14/2024 1:21 PM EDT 05/14/2024 1:21 PM EDT Treva Diaz MD POINT OF CARE TEST ORDERABLES Performing Organization Address [facility]/ZIP Co de Phone Number [facility] [place] [address] * Anaerobic Culture (05/14/2024 11:33 AM EDT) Anaerobic Culture No anaerobic organisms isolated [facility] Toe 05/14/2024 11:3 3 AM EDT 05/14/2024 12:33 PM EDT Comment:PROXIMAL RIGHT 2ND T OE Narrative Resulting Agency Comment Spec In Lab Gennaro Meyers MD MICROBIOLOGY - GENE RAL ORDERABLES Performing Organization Address [facility]/ZIP Co de Phone Number [facility] [place] [address] * (ABNORMAL) Tissue culture (05/14/2024 11:33 AM EDT) Tissue Culture One colony of Coagulase negative Staphylococcus species(A) [facility] Gram Stain Few Neutrophils seen Rare Gram Positive Cocci in pairs seen Results called to and read back by Dr. Mihaela Galvan ??05/14/24 14:57:00 (A) [facility] Organism Coagulase negative Staphylococcus species(A) [facility] Organism Gram Positive Cocci in pairs(A) [facility] Toe 05/14/2024 11:3 3 [...] Sensitive Comment:Gentamicin i s not appropriate for [place]-therapy. Coagulase Negative Staphylococcus species Levofloxacin MICROSCAN METHOD [...] METHOD Sensitive Gennaro Meyers MD MICROBIOLOGY - [facility] ORDERABLES [facility] [place] [address] * Surgical Pathology Report (05/14/2024 11:32 AM EDT) Surgical Pathology Report [id number] ? Location: [id number]; [id number]; A The signing [...] MD, Shima Verified: ??05/20/2024 11:25 Performed at: ??-[facility] Dept. of Pathology, [place] [address] Vehicle Controls Engineer: Polly Barnhart MD, FCAP, ??CLIA Certificate: [id number] SPECIMEN(S) SUBMITTED A - RIGHT 2ND TOE, [...] Sections/Processi ng: Blocks submitted for decalcification: A1-A2. Walking Dragline Oiler sections in 2 cassettes as follows: ?A1-A2: ??Longitudinal section of digit ??cmk [facility] 05/14/2024 11:3 2 AM EDT Gennaro Meyers MD PATHOLOGY/CYTOLOGY ORDERABLES [facility] [place] [address] * Specimen to Pathology (05/14/2024 11:32 AM EDT) AP Specimen 05/14/2024 11:3 2 AM EDT 05/14/2024 11:32 AM EDT Narrative [facility] - 05/14/2024 11:32 AM EDT Specimen requisition ordered. ??Separate Pathology report to follow Treva Diaz MD PATHOLOGY/CYTOLOGY ORDERABLES Performing Organization Address City/[facility]/ZIP [place] [address] * (ABNORMAL) POCT Glucose (05/14/2024 7:58 AM EDT) [facility] Glucose, POC 203(H) 65 - 199 mg/dL [facility] Comment: Supplemental ranges: <140 mg/dL before meals <180 mg/dL all other times of the day Blood 05/14/2024 7:58 AM EDT 05/14/2024 7:58 AM EDT Treva Diaz MD POINT OF CARE TEST ORDERABLES Performing Organization Address City/[facility]/ZIP Co de Phone Number [facility] [place] [address] * (ABNORMAL) Differential, Automated (05/14/2024 5:01 AM EDT) [facility] Neutrophil % 80.5 % [facility] Neutrophil Absolute 12.45(H) 1.70 - 6.10 x10(3)/mc L [facility] Lymph % 5.5 % [facility] Lymphocytes Abs 0.8(L) 0.9 - 3.2 x10(3)/mc L [facility] Monocyte % 12.6 % [facility] Monocyte Abs 2.0(H) 0.3 - 0.9 x10(3)/mc L [facility] Eos % 0.3 % [facility] Eosinophils Abs 0.0 0.0 - 0.4 x10(3)/mc L [facility] Basophil % 0.2 % [facility] Baso Absolute 0.0 0.0 - 0.1 x10(3)/mc L [facility] Immature Gran % 0.90 % [facility] Comment: Immature granulocytes(IG's)percentage and absolute count will include metamyelocytes, myelocytes, and promyelocytes. Blood smears from CBCs yielding IG's will be scanned manually for concordance. If this scan disagrees with the automated IG or if promyelocytes are noted, a manual differential will be performed. Immature Gran Absolute 0.14(H) 0.00 - 0.04 x10(3)/mc L [facility] Blood 05/14/2024 5:01 AM EDT 05/14/2024 6:02 AM EDT Narrative Resulting Agency Comment Spec In Lab Carlotta Davis MD HEMATOLOGY OR DERABLES [facility] [place] [address] * (ABNORMAL) Hemogram (05/14/2024 5:01 AM EDT) White Blood Cell 15.5(H) 4.0 - 9.5 x10(3)/ L [facility] Red Blood Cell 3.55(L) 4.58 - 5.54 x10(6)/mc L [facility] Hemoglobin 10.8(L) 13.7 - 16.5 g/dL [facility] Hematocrit 32.8(L) 40.5 - 48.5 % [facility] Mean Cell Volume 92.4 82.9 - 93.1 fL [facility] Mean Cell Hemoglobin 30.4 27.5 - 32.1 pg [facility] Mean Cell Hemoglobin Concentration 32.9 32.0 - 35.7 g/dL [facility] Platelet 190 145 - 357 x10(3)/ L [facility] RDW Standard Deviation 53.2(H) 36.0 - 45.0 fL [facility] RDW coefficient of variation 15.6(H) 11.4 - 13.8 % [facility] Mean Platelet Volume 11.2 7.6 - 12.9 fL [facility] NRBC% auto 0.0 % [facility] NRBC Absolute 0.000 0.000 - 0.000 x10(3)/mc L [facility] Blood 05/14/2024 5:01 AM EDT 05/14/2024 6:02 AM EDT Narrative Resulting Agency Comment Spec In Lab Carlotta Davis MD HEMATOLOGY OR DERABLES Performing Organization Address [facility] Co de Phone Number [facility] [place] [address] * Magnesium (05/14/2024 5:01 AM EDT) Magnesium 0.98 0.69 - 1.07 mmol/L [facility] Blood 05/14/2024 5:01 AM EDT 05/14/2024 6:02 AM EDT Narrative Resulting Agency Comment Spec In Lab Mary De La Fuente MD CHEMISTRY ORDERABL ES Performing Organization Address [facility] Co de Phone Number [facility] [place] [address] * Phosphorus (05/14/2024 5:01 AM EDT) Phosphorus 2.8 2.5 - 4.5 mg/dL [facility] Blood 05/14/2024 5:01 AM EDT 05/14/2024 6:02 AM EDT Narrative Resulting Agency Comment Spec In Lab Mary De La Fuente MD CHEMISTRY ORDERABL ES Performing Organization Address [facility] Co de Phone Number [facility] [place] [address] * (ABNORMAL) Basic Metabolic Panel (non-fasting) (05/14/2024 5:01 AM EDT) Glucose 172 65 - 199 mg/dL [facility] Comment:Diabetes: >=200 mg/d L plus symptoms Blood Urea Nitrogen 46(H) 10 - 20 mg/dL [facility] Creatinine 1.56(H) 0.80 - 1.50 mg/dL [facility] Sodium 137 135 - 145 mmol/L [facility] Potassium 4.4 3.5 - 5.0 mmol/L [facility] Comment: Please note: ??Patients with WBC >100,000 may have falsely elevated Potassium levels. ??For accurate Potassium quantification in these patients send serum separator tube (gold top) for subsequent determinations. ??Contact the Clinical Chemistry Laboratory if there are any questions. Chloride 105 98 - 107 mmol/L [facility] Carbon Dioxide 22 22 - 31 mmol/L [facility] Anion Gap 10 5 - 15 mmol/L [facility] Calcium 8.7 8.5 - 10.5 mg/dL [facility] Est Glomerular Filtration Rate 47(L) >=60 mL/min/1. 73 m?? [facility] Comment: This patient's estimated [...] De La Fuente MD CHEMISTRY ORDERABL ES [facility] [place] [address] * Vancomycin Level, Random (05/14/2024 5:01 AM EDT) Vancomycin, Random 13.5 mg/L [facility] Comment: This level is for determination of the patient's vancomycin fmik-wmoiz-qbi-curve (AUC) value. Contact the inpatient pharmacy for interpretation. Blood 05/14/2024 5:01 AM EDT 05/14/2024 6:02 AM EDT Treva Diaz MD CHEMISTRY ORDERABL ES [facility] [place] [address] * POCT Glucose (05/13/2024 8:41 PM EDT) Glucose, POC 179 65 - 199 mg/dL [facility] Comment: Supplemental ranges: <140 mg/dL before meals <180 mg/dL all other times of the day Blood 05/13/2024 8:41 PM EDT 05/13/2024 8:41 PM EDT Treva Diaz MD POINT OF CARE TEST ORDERABLES [facility] [place] [address] * POCT Glucose (05/13/2024 6:06 PM EDT) Glucose, POC 135 65 - 199 mg/dL [facility] Comment: Supplemental ranges: <140 mg/dL before meals <180 mg/dL all other times of the day Blood 05/13/2024 6:06 PM EDT 05/13/2024 6:06 PM EDT Treva Diaz MD POINT OF CARE TEST ORDERABLES [facility] [place] [address] * POCT Glucose (05/13/2024 11:12 AM EDT) Glucose, POC 163 65 - 199 mg/dL [facility] Comment: Supplemental ranges: <140 mg/dL before meals <180 mg/dL all other times of the day Blood 05/13/2024 11:1 2 AM EDT 05/13/2024 11:12 AM EDT Treva Diaz MD POINT OF CARE TEST ORDERABLES Performing Organization Address City/[facility]/ZIP Co de Phone Number [facility] [place] [address] * POCT Glucose (05/13/2024 7:47 AM EDT) Glucose, POC 194 65 - 199 mg/dL [facility] Comment: Supplemental ranges: <140 mg/dL before meals <180 mg/dL all other times of the day Blood 05/13/2024 7:47 AM EDT 05/13/2024 7:47 AM EDT Treva Diaz MD POINT OF CARE TEST ORDERABLES Performing Organization Address [facility]/ZIP Co de Phone Number [facility] [place] [address] * Scan, Peripheral Blood (05/13/2024 5:29 AM EDT) Plat estimate Normal [facility] RBC Morphology Abnormal [facility] [place] Cells 1-5 /HPF [facility] Plat, Giant Less than 1 /HPF [facility] Blood 05/13/2024 5:29 AM EDT 05/13/2024 5:49 AM EDT Narrative Resulting Agency Comment Spec In Lab Carlotta Davis MD HEMATOLOGY OR DERABLES Performing Organization Address City/[facility]/ZIP Co de Phone Number [facility] [place] [address] * (ABNORMAL) Differential, Automated (05/13/2024 5:29 AM EDT) [facility] Neutrophil % 81.8 % [facility] Neutrophil Absolute 12.66(H) 1.70 - 6.10 x10(3)/mc L [facility] Lymph % 5.0 % [facility] Lymphocytes Abs 0.8(L) 0.9 - 3.2 x10(3)/mc L [facility] Monocyte % 12.3 % [facility] Monocyte Abs 1.9(H) 0.3 - 0.9 x10(3)/mc L [facility] Eos % 0.2 % [facility] Eosinophils Abs 0.0 0.0 - 0.4 x10(3)/ L [facility] Basophil % 0.1 % [facility] Baso Absolute 0.0 0.0 - 0.1 x10(3)/mc L [facility] Immature Gran % 0.60 % [facility] Comment: Immature granulocytes(IG's)percentage and absolute count will include metamyelocytes, myelocytes, and promyelocytes. Blood smears from CBCs yielding IG's will be scanned manually for concordance. If this scan disagrees with the automated IG or if promyelocytes are noted, a manual differential will be performed. Immature Gran Absolute 0.09(H) 0.00 - 0.04 x10(3)/mc L [facility] Blood 05/13/2024 5:29 AM EDT 05/13/2024 5:49 AM EDT Narrative Resulting Agency Comment Spec In Lab Carlotta Davis MD HEMATOLOGY OR DERABLES [facility] [place] [address] * (ABNORMAL) Hemogram (05/13/2024 5:29 AM EDT) White Blood Cell 15.5(H) 4.0 - 9.5 x10(3)/ L [facility] Red Blood Cell 3.64(L) 4.58 - 5.54 x10(6)/mc L [facility] Hemoglobin 10.9(L) 13.7 - 16.5 g/dL [facility] Hematocrit 33.3(L) 40.5 - 48.5 % [facility] Mean Cell Volume 91.5 82.9 - 93.1 fL [facility] Mean Cell Hemoglobin 29.9 27.5 - 32.1 pg [facility] Mean Cell Hemoglobin Concentration 32.7 32.0 - 35.7 g/dL [facility] Platelet 186 145 - 357 x10(3)/[facility] RDW Standard Deviation 53.0(H) 36.0 - 45.0 [facility] RDW coefficient of variation 15.8(H) 11.4 - 13.8 % [facility] Mean Platelet Volume 11.8 7.6 - 12.9 [facility] NRBC% auto 0.0 % [facility] NRBC Absolute 0.000 0.000 - 0.000 x10(3)/[facility] Blood 05/13/2024 5:29 AM EDT 05/13/2024 5:49 AM EDT Narrative Resulting Agency Comment Spec In Lab Carlotta Davis MD HEMATOLOGY OR DERABLES [facility] [place] [address] * Magnesium (05/13/2024 5:29 AM EDT) Pathologist [facility] Magnesium 0.99 0.69 - 1.07 mmol/L [facility] Blood 05/13/2024 5:29 AM EDT 05/13/2024 5:49 AM EDT Narrative Resulting Agency Comment Spec In Lab Mary De La Fuente MD CHEMISTRY ORDERABL ES Performing Organization Address City/[facility]/ZIP Co de Phone Number [facility] [place] [address] * Phosphorus (05/13/2024 5:29 AM EDT) Phosphorus 2.7 2.5 - 4.5 mg/dL [facility] Blood 05/13/2024 5:29 AM EDT 05/13/2024 5:49 AM EDT Narrative Resulting Agency Comment Spec In Lab Mary De La Fuente MD CHEMISTRY ORDERABL ES Performing Organization Address [facility] Co de Phone Number [facility] [place] [address] * (ABNORMAL) Basic Metabolic Panel (non-fasting) (05/13/2024 5:29 AM EDT) Glucose 166 65 - 199 mg/dL [facility] Comment:Diabetes: >=200 mg/d L plus symptoms Blood Urea Nitrogen 57(H) 10 - 20 mg/dL [facility] Creatinine 1.53(H) 0.80 - 1.50 mg/dL [facility] Sodium 137 135 - 145 mmol/L [facility] Potassium 4.4 3.5 - 5.0 mmol/L [facility] Comment: Please note: ??Patients with WBC >100,000 may have falsely elevated Potassium levels. ??For accurate Potassium quantification in these patients send serum separator tube (gold top) for subsequent determinations. ??Contact the Clinical Chemistry Laboratory if there are any questions. Chloride 104 98 - 107 mmol/L [facility] Carbon Dioxide 24 22 - 31 mmol/L [facility] Anion Gap 9 5 - 15 mmol/L [facility] Calcium 8.7 8.5 - 10.5 mg/dL [facility] Est Glomerular Filtration Rate 49(L) >=60 mL/min/1. 73 m?? [facility] Comment: This patient's estimated [...] MD CHEMISTRY ORDERABL ES Performing Organization Address [facility] Co de Phone Number [facility] [place] [address] * POCT Glucose (05/12/2024 11:46 PM EDT) Glucose, POC 165 65 - 199 mg/dL [facility] Comment: Supplemental ranges: <140 mg/dL before meals <180 mg/dL all other times of the day Blood 05/12/2024 11:4 6 PM EDT 05/12/2024 11:46 PM EDT Treva Diaz MD POINT OF CARE TEST ORDERABLES Performing Organization Address City/[facility]/ZIP Co de Phone Number [facility] [place] [address] * POCT Glucose (05/12/2024 8:36 PM EDT) Glucose, POC 164 65 - 199 mg/dL [facility] Comment: Supplemental ranges: <140 mg/dL before meals <180 mg/dL all other times of the day Blood 05/12/2024 8:36 PM EDT 05/12/2024 8:36 PM EDT Treva Diaz MD POINT OF CARE TEST ORDERABLES Performing Organization Address [facility] Co de Phone Number [facility] [place] [address] * POCT Glucose (05/12/2024 5:38 PM EDT) Glucose, POC 175 65 - 199 mg/dL [facility] Comment: Supplemental ranges: <140 mg/dL before meals <180 mg/dL all other times of the day Blood 05/12/2024 5:38 PM EDT 05/12/2024 5:38 PM EDT Treva Diaz MD POINT OF CARE TEST ORDERABLES Performing Organization Address [facility] Co de Phone Number [facility] [place] [address] * Vancomycin Level, Random (05/12/2024 2:10 PM EDT) Vancomycin, Random 22.3 mg/L [facility] Comment: This level is for determination of the patient's vancomycin ijvb-jbqsl-xqo-curve (AUC) value. Contact the inpatient pharmacy for interpretation. Blood 05/12/2024 2:10 PM EDT 05/12/2024 2:23 PM EDT Treva Diaz MD CHEMISTRY ORDERABL ES Performing Organization Address [facility] Co de Phone Number [facility] [place] [address] * POCT Glucose (05/12/2024 1:42 PM EDT) Glucose, POC 168 65 - 199 mg/dL [facility] Comment: Supplemental ranges: <140 mg/dL before meals <180 mg/dL all other times of the day Blood 05/12/2024 1:42 PM EDT 05/12/2024 1:42 PM EDT Treva Diaz MD POINT OF CARE TEST ORDERABLES Performing Organization Address City/[facility]/ZIP Co de Phone Number [facility] [place] [address] * Duplex for DVT, Leg, Unilat (05/12/2024 10:19 AM EDT) VB Text Report Department: Vascular Surgery Lab Patient: [id number] (JOSSY SHANKS) CPT: 82389 Referring Physician: MARY DE LA FUENTE ?? [...] MD VASCULAR ORDERABLE S Performing Organization Address [facility] Co de Phone Number [email or web address] * POCT Glucose (05/12/2024 9:00 AM EDT) Glucose, POC 161 65 - 199 mg/dL [facility] Comment: Supplemental ranges: <140 mg/dL before meals <180 mg/dL all other times of the day Blood 05/12/2024 9:00 AM EDT 05/12/2024 9:00 AM EDT Treva Diaz MD POINT OF CARE TEST ORDERABLES Performing Organization Address City/[facility]/ZIP Co de Phone Number [facility] [place] [address] * (ABNORMAL) Sedimentation rate (05/12/2024 4:45 AM EDT) [facility] Sedimentation Rate Automated >119(H) 3 - 46 mm/hr [facility] Comment: Effective September 24, [...] MD HEMATOLOGY ORDERABLE S Performing Organization Address [facility]/ZIP Co de Phone Number [facility] [place] [address] * (ABNORMAL) CRP, acute inflammation (05/12/2024 4:45 AM EDT) [facility] C-Reactive Protein 152.4(H) <=4.9 mg/L [facility] Blood Venous Draw / Unknown 05/12/2024 4:45 AM EDT 05/12/2024 5:12 AM EDT Narrative Resulting Agency Comment Spec In Lab Juan José Harrison MD CHEMISTRY ORDERABLES Performing Organization Address City/[facility]/ZIP Co de Phone Number [facility] [place] [address] * (ABNORMAL) Differential, Automated (05/12/2024 4:45 AM EDT) [facility] Neutrophil % 87.9 % [facility] Neutrophil Absolute 17.31(H) 1.70 - 6.10 x10(3)/mc L [facility] Lymph % 3.9 % [facility] Lymphocytes Abs 0.8(L) 0.9 - 3.2 x10(3)/mc L [facility] Monocyte % 7.4 % [facility] Monocyte Abs 1.4(H) 0.3 - 0.9 x10(3)/[facility] Eos % 0.0 % [facility] Eosinophils Abs 0.0 0.0 - 0.4 x10(3)/[facility] Basophil % 0.1 % [facility] Baso Absolute 0.0 0.0 - 0.1 x10(3)/[facility] Immature Gran % 0.70 % [facility] Comment: Immature granulocytes(IG's)percentage and absolute count will include metamyelocytes, myelocytes, and promyelocytes. Blood smears from CBCs yielding IG's will be scanned manually for concordance. If this scan disagrees with the automated IG or if promyelocytes are noted, a manual differential will be performed. Immature Gran Absolute 0.14(H) 0.00 - 0.04 x10(3)/[facility] Blood 05/12/2024 4:45 AM EDT 05/12/2024 5:06 AM EDT Narrative Resulting Agency Comment Spec In Lab Carlotta Davis MD HEMATOLOGY OR DERABLES Performing Organization Address City/State/[facility] Co de Phone Number [facility] [place] [address] * (ABNORMAL) Hemogram (05/12/2024 4:45 AM EDT) White Blood Cell 19.7(H) 4.0 - 9.5 x10(3)/ L [facility] Red Blood Cell 3.58(L) 4.58 - 5.54 x10(6)/[facility] Hemoglobin 10.9(L) 13.7 - 16.5 g/dL [facility] Hematocrit 33.1(L) 40.5 - 48.5 % [facility] Mean Cell Volume 92.5 82.9 - 93.1 fL [facility] Mean Cell Hemoglobin 30.4 27.5 - 32.1 pg [facility] Mean Cell Hemoglobin Concentration 32.9 32.0 - 35.7 g/dL [facility] Platelet 165 145 - 357 x10(3)/mc L [facility] RDW Standard Deviation 53.2(H) 36.0 - 45.0 fL [facility] RDW coefficient of variation 15.7(H) 11.4 - 13.8 % [facility] Mean Platelet Volume 12.1 7.6 - 12.9 fL [facility] NRBC% auto 0.0 % [facility] NRBC Absolute 0.000 0.000 - 0.000 x10(3)/mc L [facility] Blood 05/12/2024 4:45 AM EDT 05/12/2024 5:06 AM EDT Narrative Resulting Agency Comment Spec In Lab Carlotta Davis MD HEMATOLOGY OR DERABLES [facility] [place] [address] * Magnesium (05/12/2024 4:45 AM EDT) Magnesium 1.07 0.69 - 1.07 mmol/L [facility] Blood 05/12/2024 4:45 AM EDT 05/12/2024 5:06 AM EDT Narrative Resulting Agency Comment Spec In Lab Mary De La Fuente MD CHEMISTRY ORDERABL ES Performing Organization Address City/[facility]/ZIP Co de Phone Number [facility] [place] [address] * Phosphorus (05/12/2024 4:45 AM EDT) Phosphorus 2.7 2.5 - 4.5 mg/dL [facility] Blood 05/12/2024 4:45 AM EDT 05/12/2024 5:06 AM EDT Narrative Resulting Agency Comment Spec In Lab Mary De La Fuente MD CHEMISTRY ORDERABL ES [facility] [place] [address] * (ABNORMAL) Basic Metabolic Panel (non-fasting) (05/12/2024 4:45 AM EDT) Glucose 156 65 - 199 mg/dL [facility] Comment:Diabetes: >=200 mg/d L plus symptoms Blood Urea Nitrogen 72(H) 10 - 20 mg/dL [facility] Creatinine 2.03(H) 0.80 - 1.50 mg/dL [facility] Sodium 135 135 - 145 mmol/L [facility] Potassium 4.5 3.5 - 5.0 mmol/L [facility] Comment: Please note: ??Patients with WBC >100,000 may have falsely elevated Potassium levels. ??For accurate Potassium quantification in these patients send serum separator tube (gold top) for subsequent determinations. ??Contact the Clinical Chemistry Laboratory if there are any questions. Chloride 101 98 - 107 mmol/L [facility] Carbon Dioxide 24 22 - 31 mmol/L [facility] Anion Gap 10 5 - 15 mmol/L [facility] Calcium 8.4(L) 8.5 - 10.5 mg/dL [facility] Est Glomerular Filtration Rate 35(L) >=60 mL/min/1. 73 m?? [facility] Comment: This patient's estimated [...] De La Fuente MD CHEMISTRY ORDERABL ES [facility] [place] [id number] * ANGY, legs, multiple levels (05/12/2024 3:22 AM EDT) VB Text Report Department: Vascular Surgery Lab Patient: [id number] (JOSSY SHANKS) CPT: [id number] Referring Physician: THO DICKSON ?? Phone: Indications: [...] Glucose, POC 201(H) 65 - 199 mg/dL [facility] Comment: Supplemental ranges: <140 mg/dL before meals <180 mg/dL all other times of the day Blood 05/11/2024 8:14 PM EDT 05/11/2024 8:14 PM EDT Treva Diaz MD POINT OF CARE TEST ORDERABLES Performing Organization Address City/[facility] Co de Phone Number [facility] [place] [address] * Vancomycin Level, Random (05/11/2024 8:10 PM EDT) Vancomycin, Random 21.7 mg/L [facility] Comment: This level is for determination of the patient's vancomycin qriq-mdjbq-glv-curve (AUC) value. Contact the inpatient pharmacy for interpretation. Blood 05/11/2024 8:10 PM EDT 05/11/2024 8:32 PM EDT Treva Diaz MD CHEMISTRY ORDERABL ES Performing Organization Address [facility] Co de Phone Number [facility] [place] [address] * POCT Glucose (05/11/2024 4:34 PM EDT) Glucose, POC 197 65 - 199 mg/dL [facility] Comment: Supplemental ranges: <140 mg/dL before meals <180 mg/dL all other times of the day Blood 05/11/2024 4:34 PM EDT 05/11/2024 4:34 PM EDT Treva Diaz MD POINT OF CARE TEST ORDERABLES Performing Organization Address [facility] Co de Phone Number [facility] [place] [address] * (ABNORMAL) POCT Glucose (05/11/2024 11:47 AM EDT) Glucose, POC 255(H) 65 - 199 mg/dL [facility] Comment: Supplemental ranges: <140 mg/dL before meals <180 mg/dL all other times of the day Blood 05/11/2024 11:4 7 AM EDT 05/11/2024 11:47 AM EDT Treva Diaz MD POINT OF CARE TEST ORDERABLES Performing Organization Address City/[facility]/ZIP Co de Phone Number [facility] [place] [address] * (ABNORMAL) POCT Glucose (05/11/2024 6:57 AM EDT) Glucose, POC 200(H) 65 - 199 mg/dL [facility] Comment: Supplemental ranges: <140 mg/dL before meals <180 mg/dL all other times of the day Blood 05/11/2024 6:57 AM EDT 05/11/2024 6:57 AM EDT Treva Diaz MD POINT OF CARE TEST ORDERABLES Performing Organization Address City/[facility]/ZIP Co de Phone Number [facility] [place] [address] * (ABNORMAL) Differential, Automated (05/11/2024 2:00 AM EDT) Neutrophil % 85.8 % [facility] Neutrophil Absolute 22.16(H) 1.70 - 6.10 x10(3)/mc L [facility] Lymph % 1.5 % [facility] Lymphocytes Abs 0.4(L) 0.9 - 3.2 x10(3)/mc L [facility] Monocyte % 4.9 % [facility] Monocyte Abs 1.3(H) 0.3 - 0.9 x10(3)/mc L [facility] Eos % 0.0 % [facility] Eosinophils Abs 0.0 0.0 - 0.4 x10(3)/mc L [facility] Basophil % 0.1 % [facility] Baso Absolute 0.0 0.0 - 0.1 x10(3)/[facility] Immature Gran % 7.70 % [facility] Comment: Immature granulocytes(IG's)percentage and absolute count will include metamyelocytes, myelocytes, and promyelocytes. Blood smears from CBCs yielding IG's will be scanned manually for concordance. If this scan disagrees with the automated IG or if promyelocytes are noted, a manual differential will be performed. Immature Gran Absolute 1.98(H) 0.00 - 0.04 x10(3)/[facility] Blood 05/11/2024 2:00 AM EDT 05/11/2024 2:07 AM EDT Narrative Resulting Agency Comment Spec In Lab Carlotta Davis MD HEMATOLOGY OR DERABLES Performing Organization Address City/State/[facility] Co de Phone Number [facility] [place] [address] * (ABNORMAL) Hemogram (05/11/2024 2:00 AM EDT) White Blood Cell 25.8(H) 4.0 - 9.5 x10(3)/[facility] Red Blood Cell 3.64(L) 4.58 - 5.54 x10(6)/ L [facility] Hemoglobin 10.9(L) 13.7 - 16.5 g/dL [facility] Hematocrit 32.5(L) 40.5 - 48.5 % [facility] Mean Cell Volume 89.3 82.9 - 93.1 fL [facility] Mean Cell Hemoglobin 29.9 27.5 - 32.1 pg [facility] Mean Cell Hemoglobin Concentration 33.5 32.0 - 35.7 g/dL [facility] Platelet 141(L) 145 - 357 x10(3)/[facility] RDW Standard Deviation 51.2(H) 36.0 - 45.0 fL [facility] RDW coefficient of variation 15.6(H) 11.4 - 13.8 % [facility] Mean Platelet Volume 12.9 7.6 - 12.9 fL [facility] NRBC% auto 0.0 % [facility] NRBC Absolute 0.000 0.000 - 0.000 x10(3)/mc L [facility] Blood 05/11/2024 2:00 AM EDT 05/11/2024 2:07 AM EDT Narrative Resulting Agency Comment Spec In Lab Carlotta Davis MD HEMATOLOGY OR DERABLES Performing Organization Address [facility]/ZIP Co de Phone Number [facility] [place] [address] * Magnesium (05/11/2024 2:00 AM EDT) Magnesium 1.01 0.69 - 1.07 mmol/L [facility] Blood 05/11/2024 2:00 AM EDT 05/11/2024 2:07 AM EDT Narrative Resulting Agency Comment Spec In Lab Mary De La Fuente MD CHEMISTRY ORDERABL ES Performing Organization Address [facility] Co de Phone Number [facility] [place] [address] * Phosphorus (05/11/2024 2:00 AM EDT) Phosphorus 4.0 2.5 - 4.5 mg/dL [facility] Blood 05/11/2024 2:00 AM EDT 05/11/2024 2:07 AM EDT Narrative Resulting Agency Comment Spec In Lab Mary De La Fuente MD CHEMISTRY ORDERABL ES Performing Organization Address City/[facility]/ZIP Co de Phone Number [facility] [place] [address] * (ABNORMAL) Basic Metabolic Panel (non-fasting) (05/11/2024 2:00 AM EDT) Glucose 212(H) 65 - 199 mg/dL [facility] Comment:Diabetes: >=200 mg/d L plus symptoms Blood Urea Nitrogen 72(H) 10 - 20 mg/dL [facility] Creatinine 2.58(H) 0.80 - 1.50 mg/dL [facility] Comment:result rechecked-HN Sodium 136 135 - 145 mmol/L [facility] Potassium 4.7 3.5 - 5.0 mmol/L [facility] Comment: Please note: ??Patients with WBC >100,000 may have falsely elevated Potassium levels. ??For accurate Potassium quantification in these patients send serum separator tube (gold top) for subsequent determinations. ??Contact the Clinical Chemistry Laboratory if there are any questions. Chloride 100 98 - 107 mmol/L [facility] Carbon Dioxide 24 22 - 31 mmol/L [facility] Anion Gap 12 5 - 15 mmol/L [facility] Calcium 8.3(L) 8.5 - 10.5 mg/dL [facility] Est Glomerular Filtration Rate 26(L) >=60 mL/min/1. 73 m?? [facility] Comment: This patient's estimated [...] MD CHEMISTRY ORDERABL ES Performing Organization Address [facility] Co de Phone Number [facility] [place] [address] * Vancomycin Level, Random (05/11/2024 2:00 AM EDT) Vancomycin, Random 21.4 mg/L [facility] Comment: This level is for determination of the patient's vancomycin tody-xyxrs-xec-curve (AUC) value. Contact the inpatient pharmacy for interpretation. Blood 05/11/2024 2:00 AM EDT 05/11/2024 2:07 AM EDT Mary De La Fuente MD CHEMISTRY ORDERABL ES Performing Organization Address [facility] de Phone Number [facility] [place] [address] * (ABNORMAL) POCT Glucose (05/10/2024 11:40 PM EDT) Glucose, POC 230(H) 65 - 199 mg/dL [facility] Comment: Supplemental ranges: <140 mg/dL before meals <180 mg/dL all other times of the day Blood 05/10/2024 11:4 0 PM EDT 05/10/2024 11:40 PM EDT Treva Diaz MD POINT OF CARE TEST ORDERABLES Performing Organization Address [facility] Co de Phone Number [facility] [place] [address] * POCT Glucose (05/10/2024 4:09 PM EDT) Glucose, POC 189 65 - 199 mg/dL [facility] Comment: Supplemental ranges: <140 mg/dL before meals <180 mg/dL all other times of the day Blood 05/10/2024 4:09 PM EDT 05/10/2024 4:09 PM EDT Treva Diaz MD POINT OF CARE TEST ORDERABLES Performing Organization Address City/[facility]/ZIP Co de Phone Number [facility] [place] [address] * POCT Glucose (05/10/2024 12:11 PM EDT) Glucose, POC 185 65 - 199 mg/dL [facility] Comment: Supplemental ranges: <140 mg/dL before meals <180 mg/dL all other times of the day Blood 05/10/2024 12:1 1 PM EDT 05/10/2024 12:11 PM EDT Mary De La Fuente MD POINT OF CARE TEST ORDERABLES Performing Organization Address [facility] Co de Phone Number [facility] [place] [address] * Vancomycin Level, Random (05/10/2024 12:00 PM EDT) Vancomycin, Random 15.5 mg/L [facility] Comment: This level is for determination of the patient's vancomycin qdnn-fpgum-jvn-curve (AUC) value. Contact the inpatient pharmacy for interpretation. Blood 05/10/2024 12:0 0 PM EDT 05/10/2024 12:21 PM EDT Tho Dickson MD CHEMISTRY ORDERABLES Performing Organization Address [facility] Co de Phone Number [facility] [place] [address] * POCT Glucose (05/10/2024 8:09 AM EDT) Glucose, POC 195 65 - 199 mg/dL [facility] Comment: Supplemental ranges: <140 mg/dL before meals <180 mg/dL all other times of the day Blood 05/10/2024 8:09 AM EDT 05/10/2024 8:09 AM EDT Mary De La Fuente MD POINT OF CARE TEST ORDERABLES [facility] [place] [address] * CK (05/10/2024 6:55 AM EDT) Creatine Kinase 58 0 - 200 unit/L [facility] Blood Venous Draw / Unknown 05/10/2024 6:55 AM EDT 05/10/2024 7:41 AM EDT Narrative Resulting Agency Comment Spec In Lab Emmanuel Corey DO CHEMISTRY ORDERABLES Performing Organization Address [facility] Co de Phone Number [facility] [place] [address] * (ABNORMAL) Phosphorus (05/10/2024 6:55 AM EDT) [facility] Phosphorus 5.1(H) 2.5 - 4.5 mg/dL [facility] Blood 05/10/2024 6:55 AM EDT 05/10/2024 6:59 AM EDT Narrative Resulting Agency Comment Spec In Lab Tho Dickson MD CHEMISTRY ORDERABLES Performing Organization Address [facility] Co de Phone Number [facility] [place] [address] * (ABNORMAL) Basic Metabolic Panel (non-fasting) (05/10/2024 6:55 AM EDT) Pathologist [facility] Glucose 193 65 - 199 mg/dL [facility] Comment:Diabetes: >=200 mg/d L plus symptoms Blood Urea Nitrogen 69(H) 10 - 20 mg/dL [facility] Creatinine 3.75(H) 0.80 - 1.50 mg/dL [facility] Sodium 128(L) 135 - 145 mmol/L [facility] Potassium 5.0 3.5 - 5.0 mmol/L [facility] Comment: Please note: ??Patients with WBC >100,000 may have falsely elevated Potassium levels. ??For accurate Potassium quantification in these patients send serum separator tube (gold top) for subsequent determinations. ??Contact the Clinical Chemistry Laboratory if there are any questions. Chloride 93(L) 98 - 107 mmol/L [facility] Carbon Dioxide 23 22 - 31 mmol/L [facility] Anion Gap 12 5 - 15 mmol/L [facility] Calcium 8.6 8.5 - 10.5 mg/dL [facility] Est Glomerular Filtration Rate 17(L) >=60 mL/min/1. 73 m?? [facility] Comment: This patient's estimated [...] Dickson MD CHEMISTRY ORDERABLES Performing Organization Address City/[facility]/ZIP Co de Phone Number [facility] [place] [address] * Lactate, whole blood, send to lab ([facility]) (05/10/2024 6:55 AM EDT) Lactate WB 1.7 0.5 - 2.2 mmol/L [facility] Blood 05/10/2024 6:55 AM EDT 05/10/2024 7:00 AM EDT Narrative Resulting Agency Comment Spec In Lab Tho Dickson MD CHEMISTRY ORDERABLES [facility] [place] [address] * MRI Foot wwo Contrast Right (05/10/2024 5:51 AM EDT) WORKSTATION ID [id number] RAD Anatomical Region Laterality Modality Foot Right [...] who have questions please contact the health inspector health care facilities that requested your imaging first. ? Narrative [...] patients who have questions please contactthe health inspector health care facilities that requested your imaging first. Tho Dickson MD IMG MRI ORDERABLES * Creatinine, urine, random (05/10/2024 4:15 AM EDT) Creatinine, Urine 106 mg/dL [facility] Urine 05/10/2024 4:15 AM EDT 05/10/2024 4:23 AM EDT Narrative Resulting Agency Comment Spec In Lab Tho Dickson MD URINE ORDERABLES Performing Organization Address [facility] Co de Phone Number [facility] [place] [address] * Sodium, urine, random (05/10/2024 4:15 AM EDT) Sodium, Urine <20 mmol/L [facility] Urine 05/10/2024 4:15 AM EDT 05/10/2024 4:23 AM EDT Narrative Resulting Agency Comment Spec In Lab Tho Dickson MD URINE ORDERABLES Performing Organization Address [facility]/ZIP Co de Phone Number [facility] [place] [address] * Urea nitrogen, urine, random (05/10/2024 4:15 AM EDT) Urea Nitrogen, Urine 580 mg/dL [facility] Urine 05/10/2024 4:15 AM EDT 05/10/2024 4:23 AM EDT Narrative Resulting Agency Comment Spec In Lab Tho Dickson MD URINE ORDERABLES Performing Organization Address [facility] de Phone Number [facility] [place] [address] * (ABNORMAL) Skin/Superficial Wound Culture Toe (05/10/2024 2:56 AM EDT) Skin/Superfic ial Wound Culture Rare mixed bacterial morphotypes suggestive of normal cutaneous armani including Rare Gram Negative Rods (A) [facility] Gram Stain Many Neutrophils seen Few Gram Positive Cocci seen (A) [facility] Organism Gram Negative Rods(A) [facility] Organism Gram Positive Cocci(A) [facility] Superficial Wound TOE STRUCTURE / Unknown 05/10/2024 2:56 AM EDT 05/10/2024 5:18 AM EDT Comment:Right toe wound Narrative Resulting Agency Comment Spec In Lab Tho Dickson MD MICROBIOLOGY - GENER AL ORDERABLES Performing Organization Address [facility] Co de Phone Number [facility] [place] [address] * (ABNORMAL) Urinalysis without microscopic (05/10/2024 2:42 AM EDT) Glucose, Urine Dipstick Negative Negative mg/dL [facility] Protein, Urine Dipstick 30(A) Negative mg/dL [facility] Bilirubin, Urine Dipstick Negative Negative mg/dL [facility] Comment: Clinical correlation required for positive Urine Bilirubin results as false positive may occur with some drugs and drug related products. If a false positive is suspected a serum total bilirubin should be considered if clinically indicated. Urobilinogen, Urine Dipstick Normal Normal mg/dL [facility] pH, Urn (dipstick) 5.5 5.0 - 8.0 [facility] Blood, Urine Dipstick Large(A) Negative mg/dL [facility] Ketone, Urine Dipstick Negative Negative mg/dL [facility] Nitrite, Urine Dipstick Negative Negative [facility] Leukocytes, Urine Dipstick Small(A) Negative mcL [facility] Appearance, Urine Dipstick Cloudy(A) Clear [facility] Specific [place] Urine Automated 1.017 1.005 - 1.030 [facility] Color, Urine Dipstick [place](A) Yellow [facility] Urine 05/10/2024 2:42 AM EDT 05/10/2024 2:57 AM EDT Narrative Resulting Agency Comment Spec In Lab Tho Dickson MD URINE ORDERABLES [facility] [place] [address] * XR Chest One View (05/10/2024 2:37 AM EDT) Pathologist Al Detal WORKSTATION ID [id number] RAD Anatomical Region Laterality Modality Chest N/A Digital Radiogra phy Impressions 05/10/2024 3:27 AM EDT Bibasilar atelectasis. Thank you for letting us participate in the care of this patient. ??If you are a health care provider and have any questions regarding this report, please contact the number below. ??For patients who have questions please contact the health inspector health care facilities that requested your imaging first. ? Narrative [...] patients who have questions please contactthe health inspector health care facilities that requested your imaging first. Tho Dickson MD IMG DX ORDERABLES * Blood culture (05/10/2024 2:32 AM EDT) Blood Culture No growth at 5 days. [facility] Blood STRUCTURE OF RIGHT HAND / Unknown 05/10/2024 2:32 AM EDT 05/10/2024 4:17 AM EDT Narrative Resulting Agency Comment Spec In Lab Tho Dickson MD MICROBIOLOGY - BLOOD ORDERABLES Performing Organization Address [facility] Co de Phone Number [facility] [place] [address] * (ABNORMAL) POCT Glucose (05/10/2024 2:30 AM EDT) [facility] Glucose, POC 201(H) 65 - 199 mg/dL [facility] Comment: Supplemental ranges: <140 mg/dL before meals <180 mg/dL all other times of the day Blood 05/10/2024 2:30 AM EDT 05/10/2024 2:30 AM EDT Tho Dickson MD POINT OF CARE TEST O RDERABLES Performing Organization Address [facility] Co de Phone Number [facility] [place] [address] * Vancomycin Level, Random (05/10/2024 2:20 AM EDT) [facility] Vancomycin, Random 26.9 mg/L [facility] Comment: This level is for determination of the patient's vancomycin bwrj-ercww-nse-curve (AUC) value. Contact the inpatient pharmacy for interpretation. Blood Venous Draw / Unknown 05/10/2024 2:20 AM EDT 05/10/2024 2:38 AM EDT Tho Dickson MD CHEMISTRY ORDERABLES Performing Organization Address [facility]/ZIP Co de Phone Number [facility] [place] [address] * Scan, Peripheral Blood (05/10/2024 2:20 AM EDT) [facility] Plat estimate Normal [facility] RBC Morphology Abnormal [facility] Ovalocytes 1-5 /HPF [facility] [place] Cells 1-5 /HPF [facility] Plat, Giant Less than 1 /HPF [facility] Blood 05/10/2024 2:20 AM EDT 05/10/2024 2:36 AM EDT Narrative Resulting Agency Comment Spec In Lab Anita Camacho MD HEMATOLOGY ORDERABLE S Performing Organization Address City/[facility]/ZIP Co de Phone Number [facility] [place] [address] * Type and Screen Validity (05/10/2024 2:20 AM EDT) T&S only valid at [facility] Comment:This Type and Screen result is only valid at the [facility] Blood 05/10/2024 2:20 AM EDT 05/10/2024 2:49 AM EDT Narrative Resulting Agency Comment Spec In Lab Anita Camacho MD BLOOD BANK LAB ORDER ANGELIQUE Performing Organization Address [facility]/ZIP Co de Phone Number [facility] [place] [address] * [facility] Recheck Status (05/10/2024 2:20 AM EDT) [facility] Recheck Order Order Placed [facility] ABORH Type Recheck Completed [facility] Blood 05/10/2024 2:20 AM EDT 05/10/2024 2:49 AM EDT Narrative Resulting Agency Comment Spec In Lab Anita Camacho MD BLOOD BANK LAB ORDER ANGELIQUE Performing Organization Address City/[facility]/ZIP Co de Phone Number [facility] [place] [address] * (ABNORMAL) Differential, Automated (05/10/2024 2:20 AM EDT) Neutrophil % 89.2 % [facility] Neutrophil Absolute 25.39(H) 1.70 - 6.10 x10(3)/mc L [facility] Lymph % 1.2 % [facility] Lymphocytes Abs 0.4(L) 0.9 - 3.2 x10(3)/mc L [facility] Monocyte % 2.9 % [facility] Monocyte Abs 0.8 0.3 - 0.9 x10(3)/mc L [facility] Eos % 0.0 % [facility] Eosinophils Abs 0.0 0.0 - 0.4 x10(3)/mc L [facility] Basophil % 0.2 % [facility] Baso Absolute 0.1 0.0 - 0.1 x10(3)/ L [facility] Immature Gran % 6.50 % [facility] Comment: Immature granulocytes(IG's)percentage and absolute count will include metamyelocytes, myelocytes, and promyelocytes. Blood smears from CBCs yielding IG's will be scanned manually for concordance. If this scan disagrees with the automated IG or if promyelocytes are noted, a manual differential will be performed. Immature Gran Absolute 1.85(H) 0.00 - 0.04 x10(3)/mc L [facility] Blood 05/10/2024 2:20 AM EDT 05/10/2024 2:36 AM EDT Narrative Resulting Agency Comment Spec In Lab Anita Camacho MD HEMATOLOGY ORDERABLE S [facility] [place] [address] * (ABNORMAL) Hemogram (05/10/2024 2:20 AM EDT) White Blood Cell 28.5(H) 4.0 - 9.5 x10(3)/mc L [facility] Red Blood Cell 3.83(L) 4.58 - 5.54 x10(6)/mc L [facility] Hemoglobin 11.4(L) 13.7 - 16.5 g/dL [facility] Hematocrit 34.5(L) 40.5 - 48.5 % [facility] Mean Cell Volume 90.1 82.9 - 93.1 fL [facility] Mean Cell Hemoglobin 29.8 27.5 - 32.1 pg [facility] Mean Cell Hemoglobin Concentration 33.0 32.0 - 35.7 g/dL [facility] Platelet 135(L) 145 - 357 x10(3)/mc L [facility] RDW Standard Deviation 51.9(H) 36.0 - 45.0 fL [facility] RDW coefficient of variation 15.6(H) 11.4 - 13.8 % [facility] Mean Platelet Volume 12.8 7.6 - 12.9 [facility] NRBC% auto 0.0 % [facility] NRBC Absolute 0.000 0.000 - 0.000 x10(3)/mc L [facility] Blood 05/10/2024 2:20 AM EDT 05/10/2024 2:36 AM EDT Narrative Resulting Agency Comment Spec In Lab Anita Camacho MD HEMATOLOGY ORDERABLE S [facility] [place] [address] * (ABNORMAL) Hemoglobin A1c (05/10/2024 2:20 AM EDT) Hemoglobin A1c 5.9(H) 4.3 - 5.6 % [facility] Comment: Reference Range: 4.3 [...] Mellitus, Diabetes Care 2013; 36: Suppl. 1, E32-46 Estimated Average Glucose See note mg/dL [facility] Comment: Estimated Average Glucose not appropriate for patients over 70 years of age. Blood 05/10/2024 2:20 AM EDT 05/10/2024 2:36 AM EDT Narrative Resulting Agency Comment Spec In Lab Tho Dickson MD CHEMISTRY ORDERABLES Performing Organization Address City/[facility] [place] [address] * Hepatic Function Panel (05/10/2024 2:20 AM EDT) Protein, Total 7.6 6.1 - 8.0 g/dL [facility] Albumin 3.3 3.2 - 5.2 g/dL [facility] Aspartate Aminotransferase 21 0 - 39 unit/L [facility] Alanine Aminotransferase 19 0 - 55 unit/L [facility] Alkaline Phosphatase 42 40 - 130 unit/L [facility] Bilirubin, Total 0.5 0.2 - 1.3 mg/dL [facility] Bilirubin, Direct 0.2 0.0 - 0.3 mg/dL [facility] Blood 05/10/2024 2:20 AM EDT 05/10/2024 2:36 AM EDT Narrative Resulting Agency Comment Spec In Lab Tho Dickson MD CHEMISTRY ORDERABLES Performing Organization Address [facility] Co de Phone Number [facility] [place] [address] * (ABNORMAL) Phosphorus (05/10/2024 2:20 AM EDT) Phosphorus 4.6(H) 2.5 - 4.5 mg/dL [facility] Blood 05/10/2024 2:20 AM EDT 05/10/2024 2:36 AM EDT Narrative Resulting Agency Comment Spec In Lab Tho Dickson MD CHEMISTRY ORDERABLES Performing Organization Address City/[facility]/ZIP Co de Phone Number [facility] [place] [address] * Magnesium (05/10/2024 2:20 AM EDT) Magnesium 0.85 0.69 - 1.07 mmol/L [facility] Blood 05/10/2024 2:20 AM EDT 05/10/2024 2:36 AM EDT Narrative Resulting Agency Comment Spec In Lab Tho Dickson MD CHEMISTRY ORDERABLES [facility] [place] [address] * (ABNORMAL) Basic Metabolic Panel (non-fasting) (05/10/2024 2:20 AM EDT) Glucose 196 65 - 199 mg/dL [facility] Comment:Diabetes: >=200 mg/d L plus symptoms Blood Urea Nitrogen 71(H) 10 - 20 mg/dL [facility] Creatinine 3.94(H) 0.80 - 1.50 mg/dL [facility] Sodium 129(L) 135 - 145 mmol/L [facility] Potassium 5.3(H) 3.5 - 5.0 mmol/L [facility] Comment: Please note: ??Patients with WBC >100,000 may have falsely elevated Potassium levels. ??For accurate Potassium quantification in these patients send serum separator tube (gold top) for subsequent determinations. ??Contact the Clinical Chemistry Laboratory if there are any questions. Chloride 93(L) 98 - 107 mmol/L [facility] Carbon Dioxide 24 22 - 31 mmol/L [facility] Anion Gap 12 5 - 15 mmol/L [facility] Calcium 8.5 8.5 - 10.5 mg/dL [facility] Est Glomerular Filtration Rate 16(L) >=60 mL/min/1. 73 m?? [facility] Comment: This patient's estimated [...] Dickson MD CHEMISTRY ORDERABLES Performing Organization Address [facility] Co de Phone Number [facility] [place] [address] * (ABNORMAL) Prothrombin Time (05/10/2024 2:20 AM EDT) Prothrombin Time 27.9(H) 9.4 - 12.5 sec [facility] International Normalization Ratio 2.5 [facility] Comment: An INR <2.0 [...] MD HEMATOLOGY ORDERABLE S Performing Organization Address [facility]/ZIP Co de Phone Number [facility] [place] [address] * Type and screen ([facility]/TARA) (05/10/2024 2:20 AM EDT) ABOR[facility] Type O POSITIVE [facility] Patient BB History Not Found [facility] Expires at [id number] on: 05-13-2024 [facility] Ab Screen Interp Negative [facility] Blood 05/10/2024 2:20 AM EDT 05/10/2024 2:20 AM EDT Narrative [facility] - 05/10/2024 2:20 AM EDT This Type and Screen result is only valid at the [facility] Resulting Agency Comment Spec In Lab Tho Dickson MD BLOOD BANK LAB ORDER ANGELIQUE [facility] [place] [address] * (ABNORMAL) Lactate, whole blood, send to lab ([facility]) (05/10/2024 2:20 AM EDT) Lactate WB 2.3(H) 0.5 - 2.2 mmol/L [facility] Blood 05/10/2024 2:20 AM EDT 05/10/2024 2:36 AM EDT Narrative Resulting Agency Comment Spec In Lab Tho Dickson MD CHEMISTRY ORDERABLES Performing Organization Address [facility] Co de Phone Number [facility] [place] [address] documented in this encounter Visit Diagnoses Not [...] EVERY 4 HOURS SCHEDULED, First dose on [facility] 05/15/24 at 0400, Until Discontinued, CORRECTION BOLUS [...] HOURS, First dose (after last modification) on [facility] 05/22/24 at 1230, Until Discontinued, Routine Given [...] Routine 1259 (Given - Provider: Yg Prince RN)204 (Given - Provider: Alyssa Villalobos RN) 0819 (Given - Provider: Trice Zhao RN)1318 (MAR Hold - Provider: Admin Adt - Reason: Transfer to a Procedural area)1759 (MAR Unhold - Provider: Admin Adt)2109 (Given - Provider: Saima Quinteros RN) 0832 (Given - Provider: Juan José Lai, JACKIE) cefTRIAXone (Rocephin) 2 g vial attach to sodium chloride 0.9% 50 mL Mini-Bag Plus 2 g, Intravenous, EVERY 24 HOURS, First dose on Sun05/14/24 at 1600, Until Discontinued, Administer over 30 Minutes, Indication for (Active or Suspected): Bone/Joint 171 (New Bag - Provider: Inez Boswell RN)1742 (Stopped - Provider: Yg Prince RN) 1318 (DEC Hold - Provider: Admin Adt - Reason: Transfer to a Procedural area)175 (DEC Unhold - Provider: Admin Adt)183 (Restarted - Provider: Trice Zhao, JACKIE) 1600 (Due)181 (Due: Stopped) dilTIAZem (Cardizem) tablet [...] RN)1246 (Given - Provider: Trice Zhao RN)1318 (MAR Hold - Provider: Admin Adt - Reason: Transfer to a Procedural area)175 (DEC Unhold - Provider: Admin Adt)1842 (Given - Provider: Trice Zhao RN) 0114 (Given - Provider: Saima Quinteros RN)0600 (Given - Provider: Saima Quinteros RN)1227 (Given [...] Adt) 0831 (Given - Provider: Juan José Lai, JACKIE) furosemide (Lasix) tablet 40 mg (CANCELED) 40 [...] on 05/19/24 at 2100, Until Discontinued, Routine 204 (Given - Provider: Alyssa Villalobos RN) 131 ([facility] Hold - Provider: Admin Adt - Reason: Transfer to a Procedural area)175 ([facility] Unhold - Provider: Admin Adt)2109 (Given [...] - Reason: NPO)1413 (Given - Provider: Yg Prince, JACKIE - Comment: late meal try)1700 (Not Given - Provider: Yg Prince RN - Reason: NPO) 0800 (Not Given - Provider: Trice Zhao RN - Reason: NPO)1200 (Not Given - Provider: Trice Zhao RN - Reason: NPO)1318 ([facility] Hold - Provider: Admin Adt - Reason: Transfer to a Procedural area)1700 (Not Given - Provider: Trice Zhao RN - Reason: Order parameters not met)1759 (MAR Unhold - Provider: Admin Adt) 0832 (Given - Provider: Juan José Lai, RN)1257 (Given - Provider: Juan José Lai [...] Inez Boswell RN)2039 (Given - Provider: Alyssa Villalobos, JACKIE)2330 (Given - Provider: Alyssa Villalobos RN) 0353 [...] HOURS, First dose (after last modification) on [place] 05/18/24 at 1430, Until Discontinued, Routine 0258 [...] Procedural area)1759 (MAR Unhold - Provider: Admin Adt)1843 (Given - Provider: Trice A Gregware, RN) 0030 (Not Given - Provider: Saima [...] Yg Prince RN)203 (Given - Provider: Alyssa Sun, RN) 0819 (Given - Provider: Trice Zhao RN)131 (DEC Hold - Provider: Admin Adt - Reason: Transfer to a Procedural area)1758 (DEC Unhold - Provider: Admin Adt)2108 (Given - Provider: Samia Quinteros RN) pantoprazole EC (Protonix) tablet 40 [...] area)175 (DEC Unhold - Provider: Admin Adt) 0832 [...] area)1759 (MAR Unhold - Provider: Admin Adt) fentaNYL (pf) [...] area)1758 (DEC Unhold - Provider: Admin Adt) melatonin tablet 6 mg 6 mg, Oral, NIGHTLY PRN, Starting on Sun05/12/24 at 1550, Until Sun05/23/24 at 1815, Insomnia, Routine 131 (DEC Hold - Provider: Admin Adt - Reason: Transfer to a Procedural area)1758 (DEC Unhold - Provider: Admin Adt) midazolam [...] Routine 1056 (Given - Provider: Sky Shelton, RN)1100 (Given - Provider: Sky Shelton, JACKIE) oxyCODONE (Roxicodone) tablet 5 mg 5 mg, Oral, EVERY 4 HOURS PRN, Starting on Sun05/14/24 at 1352, Until Sun05/23/24 at 1815, Pain, Routine 1318 ([facility] Hold - Provider: Admin Adt - Reason: Transfer to a Procedural area)1758 (DEC Unhold - Provider: Admin Adt) simethicone (Gas-X Chew) 80 mg chewable tablet 80 mg 80 mg, Oral, EVERY 6 HOURS PRN, Starting on [place] 05/15/24 at 1812, Until Sun05/23/24 at 1815, Cramping, Routine 1318 (DEC Hold - Provider: Admin Adt - Reason: Transfer to a Procedural area)1759 (DEC Unhold - Provider: Admin Adt) Linked Groups Order Group 1: POCT Fingerstick Glucose (CANCELED) Routine, EVERY 4 HOURS, First occurrence on [place] 05/15/24 at 0300, Until Specified, Consider choosing EVERY [...] PRN, Starting on 05/10/24 at 0225, Until 05/23/24 at 1815, Low blood sugar, For BG [...] documented as of this encounter Care Teams Soil Chemist Relationship 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
--- OUTSIDE RECORDS SUMMARY | 2024-06-03 15:26 | XMS_ITS | Encounter Summary ---
[facility] [place] [address] Care Team Providers Care Metal Finish Inspector Name Role Phone Cruzito Hager MD Primary Care Provider + Encounter Details Date Type Department Care Team (Latest Contact Info) Description 01/08/2017 - 01/08/2017 11:59 PM EDT Hospital Encounter [place] [address] Navjot Castillo MD [facility] [place] [address] Discharge Disposition: Home Social History Tobacco Use [...] 10:30 AM EDT Office [place] [address] Elkin Garcia MD [facility] [place] [address] documented as of this encounter Procedures Procedure Name Priority Date/Time Associated Diagnosis Comments FILM LIBRARY STORAGE ONLY MR SPINE Routine 01/08/2017 12:00 AM EDT documented in this encounter Results * Film Library- Storage Only MR Spine (01/08/2017 12:00 AM EDT) Narrative [facility] - 09/26/2017 1:39 PM EST This exam is for storage only and is auto-finalizing. Navjot Castillo MD IMG FILM LIBRARY ORD ERABLES [place], [place] documented in this encounter Visit Diagnoses Not on filedocumented in this encounter Care Teams Metal Finish Inspector Relationship Specialty Start Date End Date Cruzito Hager MD [address] [facility] [place] [address] PCP - General 09/06/10 07/24/17 documented as of this encounter
--- OUTSIDE RECORDS SUMMARY | 2024-06-03 15:26 | XMS_ITS | Encounter Summary ---
[place] [address] Care Team Providers Care Hyster Driver Name Role Phone None Primary Care Provider Unavailabl e Reason for Visit * Reason Comments Low Back Pain Bilateral Hip Pain Bilateral Leg Pain Encounter Details Date Type Department Care Team (Late st Contact Info) Description 11/26/2017 2:20 PM EST Office [place] [address] Navjot Castillo MD [facility] [place] [address] Degenerative lumbar spinal stenosis Social History Tobacco Use Types Packs/Day Years Used Date Smoking Tobacco: Former Smokeless Tobacco: Never Sex and Gender Information Value Date Recorded Sex Assigned at Not on file Gender Identity Not on file Sexual Orientation Not on file documented as of this encounter Last Filed Vital Signs Vital Sign Reading Time Taken Comments Blood Pressure 170/100 11/26/2017 2:06 PM EST Pulse - - Temperature - - Respiratory Rate - - Oxygen Saturation - - Inhaled Oxygen Concentration - - Weight 131.1 kg (289 lb) 11/26/2017 2:06 PM EST Height 190.5 cm (6' 3) 11/26/2017 2:06 PM EST Body Mass Index 36.12 11/26/2017 2:06 PM EST documented in this encounter Progress Notes * Navjot Castillo MD - 11/26/2017 2:20 PM EST Chief complaint: Low back pain equal to right lower extremity pain History of present illness: Mr. Shanks is a 62-year-old male who I am seeing in consultation for Dr. Gonzáles in regards to his back pain that radiates to his right buttock posterolateral thigh and posterolateral leg. These symptoms have been present for at least one year, and they were insidious in onset. The pain is worse with standing and walking, and he gets relief by sitting down or flexing forward. It limits his standing to about 30 minutes and walking to less than 100 yards. He does get some relief from a shopping cart. He describes numbness in his right anterolateral leg. He does not note any weakness. He denies constitutional symptoms or change in his bowel or bladder function. He is currently taking Tylenol that he finds helpful. He found tramadol not helpful. He did at least 3 months of physical therapy to give him some relief. He continues to do home exercises. He had multiple lumbar epidural steroid injections, and these gave him very short-term relief. He had radiofrequency ablation the gave him some partial improvement. He has never had prior spinal surgery. Past medical history: Hypertension, atrial fibrillation Past surgical history: Hernia repair Family history: None Social history: The patient worked at [employer] until one year ago. He stopped working due to his back pain. He does not smoke and has about 2 drinks per day. Medications and allergies were reviewed and are in ED H Review of systems: All negative except musculoskeletal as above. Physical exam Patient is 6 foot 3, 289 pounds, with a BMI of 36.1 General: Patient is comfortable, no acute distress Back: His back is somewhat tender to palpation over his right SI joint. He can flex 70?? and [id number]??. Neurological exam: He walks with a normal gait. He has difficulty heel walk and toe walking. Motor exam reveals 4/5 strength of his bilateral EHL with all other motor groups 5/5. He has decreased sensation on the dorsum of the right foot and his right lateral leg. Reflexes are 2/4 at the knees and trace at the ankles. Straight leg raise is negative bilaterally. He has no clonus, and Babinski is ne gative. Hip exam: He has normal, painless range of motion of both hips. Vascular exam: He has palpable pulses bilaterally. Imaging: AP and lateral x-rays of the lumbar spine obtained today demonstrates a moderate degenerative scoliosis that is apex to the right in the lower lumbar spine and apex to the left at the thoracolumbar junction. On the lateral view, he has no spondylolisthesis or instability. MRI of the lumbar spine from 01/08/2017 was reviewed. This demonstrates moderate to severe central and lateral recess stenosis at L2-L3 with more severe stenosis at L3-L4 and L4-L5. At L5-S1, his severe bilateral foraminal narrowing with moderate bilateral lateral recess stenosis. Assessment/plan: Mr. Shanks is a 62-year-old male who presents with 1 year of back pain and neurogenic claudication in the setting of spinal stenosis from L2- S1 with a degenerative scoliosis. We discussed treatment options for this that include continue medication, further physical therapy, repeatepidural steroid injection, and surgery. I explained to him that surgery in his case would involve an L2-S1 laminectomy and fusion. We discussed the typical risks and recovery, which are substantial,associated with such an operation. He does not want to undergo a procedure like that in the short-term. He notes that he is going to attempt to lose some weight to see if that helps his back. If he is interested in undergoing any further injections, he will contact Dr. Gonzáles. In the event that hewants to discuss surgery further, he should return to see me with an updated MRI of the lumbar spine. documented in this encounter Plan of Treatment Upcoming Encounters Date Type Department Care Team (Late st Contact Info) Description 06/10/2024 10:30 AM EDT Office [place] [address] Elkin Garcia MD [facility] [place] [address] documented as of this encounter Visit Diagnoses Diagnosis Degenerative lumbar spinal stenosis Spinal stenosis, lumbar region, without neurogenic claudication documented in this encounter Care Teams Hyster Driver Relationship 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
--- OUTSIDE RECORDS SUMMARY | 2024-06-03 15:26 | XMS_ITS | Encounter Summary ---
Author Organization [facility] Address [facility] [place] [address] Care Team Providers Care Fender Finisher Name Role Phone None Primary Care Provider Unavailabl e Encounter Details Date Type Department Care Team (Late st Contact Info) Description 2024 9:25 PM EDT Ancillary Procedure [place] [phone] Tho Reyes MD [facility] [place] [address] Social History Tobacco Use Types Packs/Day Years Used Date Smoking Tobacco: Former Smokeless Tobacco: Never [facility] Inpatient Questions Answer Date Recorded Does Anyone [...] 10:30 AM EDT Office [place] [phone] Elkin Garcia MD [facility] [place] [address] documented as of this encounter Procedures Procedure Name Priority Date/Time Associated Diagnosis Comments FILM LIBRARY STORAGE ONLY CT CHEST ABDOMEN PELVIS Routine 2024 9:16 PM EDT documented in this encounter Results * Film Library- Storage Only CT Chest Abdomen Pelvis (2024 9:16 PM EDT) Narrative [facility] - 2024 9:16 PM EDT This exam is auto-finalizing. It's purpose is for storage only. Tho Reyes MD IMG FILM LIBRARY ORD ERABLES Performing Organization Address City/State/[facility] Co de Phone Number [place], [place] documented in this encounter Visit Diagnoses Not on filedocumented in this encounter Care Teams Fender Finisher Relationship 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
--- OUTSIDE RECORDS SUMMARY | 2024-06-03 15:26 | XMS_ITS | Encounter Summary ---
Author Organization [facility] Address [facility] [place] [address] Care Team Providers Care Noise Abatement Engineer Name Role Phone None Primary Care Provider Unavailabl e Encounter Details Date Type Department Care Team (Late st Contact Info) Description 2024 9:20 PM EDT Ancillary Procedure [place] [phone] Tho Reyes MD [facility] [address] Social History Tobacco Use Types Packs/Day Years Used Date Smoking Tobacco: Former Smokeless Tobacco: Never [facility] Inpatient Questions Answer Date Recorded Does Anyone [...] 10:30 AM EDT Office [place] [phone] Elkin Garcia MD [facility] [place] [address] documented as of this encounter Procedures Procedure Name Priority Date/Time Associated Diagnosis Comments FILM LIBRARY STORAGE ONLY CT LOWER EXTREMITY Routine 2024 9:16 PM EDT documented in this encounter Results * Film Library- Storage Only CT Lower Extremity (2024 9:16 PM EDT) Narrative [facility] - 2024 9:16 PM EDT This exam is auto-finalizing. It's purpose is for storage only. Tho Reyes MD IMG FILM LIBRARY ORD ERABLES Performing Organization Address City/State/[facility] Co de Phone Number [place], [place] documented in this encounter Visit Diagnoses Not on filedocumented in this encounter Care Teams Noise Abatement Engineer Relationship 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
[2024-06-03 16:50] LABS: MCH 29.8 pg (27.0-33.0); MCHC 31.9 % (32.0-36.0); MCV 93 fL (80-95); MPV 10.9 fL (8.0-11.0); Platelet Count 280 10^3/uL (130-400); RBC 2.25 10^6/uL (4.36-5.78); RDW 15.7 % (11.8-14.1); RDW-SD 53.2 fL; WBC 10.42 10^3/uL (4.4-10.8)
[2024-06-03 17:29] LABS: HGB 6.7 g/dL (13.5-17.5)
[2024-06-03 17:32] LABS: ALT 18 U/L (16-63); AST 12 U/L (15-37); Albumin 1.8 g/dL (3.4-5.0); Alkaline Phosphatase 94 U/L (46-116); Anion Gap 9.7 mmol/L (3-11); BUN 62 mg/dL (7-18); Bilirubin, Total 0.19 mg/dL (0.2-1.0); C-Reactive Protein 15.12 mg/dL (<or=0.5); CO2 24.3 mmol/L (21.0-32.0); Calcium 8.8 mg/dL (8.5-10.1); Chloride 102 mmol/L (98-107); Estimated GFR 16.85 (mL/min/1.73m2); Glucose 141 mg/dL (74-106); Potassium 4.3 mmol/L (3.5-5.1); Sodium 136 mmol/L (136-145); Total Protein 6.2 g/dL (6.4-8.2)
[2024-06-03 17:41] LABS: CREATININE 3.7 mg/dL (0.70-1.30)
== END 2024-06-03 15:21 | disposition home or self-care (01) ==
LOC: LBN 15:20
PROVIDERS: PCP Physician Assistant; Visit Provider Family Medicine
DX: D62 Acute posthemorrhagic anemia (principal)
CPT/HCPCS: 80053; 85027; 86140

== ENCOUNTER 2024-06-03 20:29 | Emergency (ER) | payer MEDICARE, SELFPAY ==
[2024-06-03] VITALS (39 sets, daily range): BP systolic 75–139; BP diastolic 10–82; PULSE 77–102; RESP 3–39; TEMP 36.4; O2SAT 90–100
--- NOTE | 2024-06-03 20:15 | RT.EKG_ITS ---
APPROVED REPORT Exam: Resting ECG Reason for Exam: SOB Patient Location: E HR:86 bpm ECG Measurements Heart Rate 86 AXIS NC [id number] P [id number] QRSd 115 QRS -48 QT 367 T 75 QTc 438 Conclusion Atrial fibrillation Rate 86 No STEMI incomplete LBBB
--- NOTE | 2024-06-03 20:28 | ED.GENADUL_ITS ---
Discharge Plan Disposition Patient Disposition: Residential Facility(SNF) Condition: Stable Discharge Details Clinical Impression: Anemia, CHF (congestive heart failure), CKD (chronic kidney disease), Laceration of skin of face, Acute head trauma Primary Care Provider: Pepe Bill ED Provider: Jing Srivastava Home Meds and New Rx's Prescriptions: Continued acetaminophen 500 mg tablet 500 mg PO Q6H PRN multivitamin [Daily Vitamin] 1 EACH tablet 1 ea PO DAILY diltiazem HCl 240 MG capsule,ext.rel 24h degradable 240 mg PO DAILY Qty: 90 Xarelto 15 MG tablet 15 mg PO DAILY Qty: 90 lisinopril 5 mg tablet 5 mg PO DAILY insulin glargine [Lantus Solostar U-100 Insulin] 100 unit/mL (3 mL) insulin pen 15 unit subcut QPM atorvastatin 40 mg tablet 40 mg PO DAILY insulin lispro [Humalog KwikPen Insulin] 100 unit/mL insulin pen 8 unit subcut TID carvedilol 25 mg tablet 25 mg PO BID Rx Instructions: must administer with a meal/food liraglutide 0.6 mg/0.1 mL (18 mg/3 mL) pen injector 1.2 mg subcut DAILY magnesium oxide 400 MG tablet 400 mg PO BID Qty: 60 0RF furosemide [Lasix] 20 mg tablet 40 mg PO BID Qty: 0 0RF (DME) blood-glucose meter [Blood Glucose Monitoring] Kit See Rx Instructions .ROUTE .MEDSUPPLY Qty: 1 0RF Rx Instructions: ac and hs (DME) lancets-blood glucose strips 30 gauge combo pack See Rx Instructions .ROUTE .MEDSUPPLY Qty: 200 0RF Rx Instructions: ac and hs Discharge Instructions Instructions: Laceration Repair With Glue ED Additional Instructions: Your labs are stable at this time. You are noteably anemic but this is unchanged from when you were discharged from [facility]. This is likely associated with your known stomach ulcer that was fixed at [facility]. You also also have chronic kidney disease that remains stable but should continue to be followed. Please keep your upcoming appointment. Please take medications as prescribed from [facility] but hold the Xarelto until you discuss this further with your primary care tomorrow. Please continue with your antibiotics, dressing/leg care. Please discuss your anemia further with your primary care, they may recommend iron supplentation and continuation of your proton pump inhibitor. If you develop chest pain, shortness of breath, recurrent bleeding, fevers/chills, headache, visual changes, weakness or other new/worsening symptoms, please seek care urgently once again. Otherwise, please follow up with primary care tomorrow for further evaluation and management. Referrals: Pepe Bill [Primary Care Provider] - [facility] General Date/Time Provider Initiated Documentation: 06/03/24 20:49 . Limitations to Documentation: no limitations . Information obtained by: patient, EMS, RN notes reviewed and old records reviewed . History of Present Illness 69 year old M presents to the emergency department with the chief complaint of facial laceration, anemia, elevated creatinine, described as moderate, and is localized to the face. Patient reports no radiation. Patient started experiencing this minute(s) (fall was recent, anemia is more chronic) Patient did receive the following treatments prior to arrival, none Related Data Home Medications ?Medication ?Instructions ?Recorded ?Confirmed multivitamin (Daily Vitamin tablet) 1 ea PO DAILY 03/20/13 05/09/24 magnesium oxide 400 mg (241.3 mg 400 mg PO BID #60 tabs 06/30/14 05/09/24 magnesium) tablet diltiazem HCl 240 mg 240 mg PO DAILY ##90 07/24/16 05/09/24 capsule,extended release 24 hr, controlled rivaroxaban 15 mg tablet (Xarelto) 15 mg PO DAILY #90 tab-caps 07/24/16 05/09/24 blood-glucose meter (Blood Glucose #1 ea 07/17/20 05/09/24 Monitoring kit) furosemide 20 mg tablet (Lasix) 40 mg (2 x 20 mg) PO BID #0 tabs 07/17/20 05/09/24 lancets 30 gauge and blood glucose #200 ea 07/17/20 05/09/24 strips combo pack atorvastatin 40 mg tablet 40 mg PO DAILY 11/28/22 05/09/24 carvedilol 25 mg tablet 25 mg PO BID 11/28/22 05/09/24 insulin glargine 100 unit/mL (3 15 unit subcut QPM 11/28/22 05/09/24 mL) subcutaneous pen (Lantus Solostar U-100 Insulin) insulin lispro 100 unit/mL 8 unit subcut TID 11/28/22 05/09/24 subcutaneous pen (Humalog KwikPen (U-100) Insulin) liraglutide 0.6 mg/0.1 mL (18 mg/3 1.2 mg subcut DAILY 11/28/22 05/09/24 mL) subcutaneous pen injector lisinopril 5 mg tablet 5 mg PO DAILY 11/28/22 05/09/24 acetaminophen 500 mg tablet 500 mg PO Q6H PRN 12/19/22 05/09/24 Previous Rx's ?Medication ?Instructions ?Recorded magnesium oxide 400 mg (241.3 mg 400 mg PO BID #60 tabs 06/30/14 magnesium) tablet blood-glucose meter (Blood Glucose #1 ea 07/17/20 Monitoring kit) furosemide 20 mg tablet (Lasix) 40 mg (2 x 20 mg) PO BID #0 tabs 07/17/20 lancets 30 gauge and blood glucose #200 ea 07/17/20 strips combo pack Allergies Allergy/AdvReac Type Severity Reaction Status Date / Time No Known Allergies Allergy Verified 06/03/24 20:24 General Stated Complaint: GenMedical RICKIE: 3 Review of Systems Constitutional Constitutional: Reports as per HPI, Denies chills, Denies fever(s), Denies headache(s) and Denies poor appetite Eyes Eyes: Denies change in vision ENT Ears, Nose, Mouth, and Throat: Denies dizziness and Denies headache(s) Cardiovascular Cardiovascular: Reports as per HPI Respiratory Respiratory: Reports as per HPI, Denies chest congestion, Denies cough, Denies pain on inspiration and Denies pain with cough Gastrointestinal Gastrointestinal: Reports as per HPI, Denies abdominal pain, Denies diarrhea, Denies nausea and Denies vomiting Genitourinary Genitourinary: Denies system reviewed and no additional complaints, except as documented (denies change in urinary habits) Musculoskeletal Musculoskeletal: Reports as per HPI and Denies back pain Integumentary/Breasts Skin/Breast: Reports as per HPI Neurologic Neurologic: Reports as per HPI, Denies dizziness and Denies headache(s) Exam Const General: cooperative, comfortable, no acute distress, well developed and ill appearing chronically Nutritional Appearance: well nourished, obese and other (appears dehydrated) Orientation: alert, awake and oriented x3 HENMT Head: no palpable skull fracture, abrasion, no Woods's sign, no contusions, no hematomas, no occipital foramen tenderness, no palpable skull fracture, no raccoon eyes and scalp tenderness Head images: 2 1. 1 cm superficial laceration that has stopped bleeding. Does have more of a road rash appearance to just above the eyebrow in this area. Small amount of ecchymosis. Extraocular movements are intact. No significant swelling. No orbital pain with palpation. No evidence of epistaxis. No intraoral abnormality Ears: hearing grossly normal bilaterally Face and sinus: no erythema, no edema, no maxillary instability and no sinus tenderness Mouth: moist mucous membranes Eyes General: appearance normal, both eyes and all related structures Neck Neck: normal visual inspection and full ROM Chest Chest: normal inspection of the chest, normal palpation of entire chest wall and no crepitus Resp Effort & Inspection: normal respiratory effort, able to speak in complete sentences and no respiratory distress Auscultation: clear to auscultation bilaterally, no rales, no rhonchi and no wheezes Cardio Rate: regular rate Rhythm: regular rhythm Heart Sounds: S1 normal and S2 normal GI Inspection: normal to inspection, no edema and non-distended Palpation: soft, no hepatosplenomegaly, not firm, no guarding, not rigid and nontender Back/Spine/Pelvis Back: no CVA tenderness Cervical Spine: normal cervical lordosis and cervical ROM normal Thoracic/Lumbar Spine: thoracic and lumbar spine normal to inspection Skin Trauma: abrasion and laceration Neuro General: patient alert, patient awake and patient oriented x3 Cognition: normal cognition Speech: speech normal Extrem General: no calf tenderness bilaterally and edema Course Vital Signs Vital signs: Vital Signs Pulse 98 H 06/03/24 20:22 Respiratory Rate 30 H 06/03/24 20:22 Blood Pressure 139/42 L 06/03/24 20:22 Pulse Oximetry 93 06/03/24 20:22 Temperature 36.4 C 06/03/24 20:27 Temperature Source Oral 06/03/24 20:27 Pulse 98 H 06/03/24 20:22 Respiratory Rate 30 H 06/03/24 20:22 Respiratory Effort Normal 06/03/24 20:24 Blood Pressure 139/42 L 06/03/24 20:22 Blood Pressure Position Sitting 06/03/24 20:22 Pulse Oximetry 93 06/03/24 20:22 Oxygen Delivery Method Room Air 06/03/24 20:22 Oxygen Flow Rate 0 06/03/24 20:22 Medical Decision Making Patient is a pleasant 69-year-old male, brought in via EMS from [facility], with chief complaint of head injury, anemia, elevated creatinine. Patient was initially being transferred to our facility for critical hemoglobin of 6.8. They also noted his creatinine to be elevated at 3.7 which does appear to be baseline for the patient. Patient was recently discharged from [facility] where he was being treated for right lower extremity cellulitis, bacteremia in the setting of multiple comorbidities including type 2 diabetes, obesity, renal failure, chronic diastolic CHF, atrial fibrillation, hypertension, pulmonary hypertension and peripheral arterial disease. Patient is anticoagulated. When EMS was attempting to load him into the ambulance, they report the patient suddenly shifted his weight causing him to tip over and fall striking his head onto the pavement from an estimated 4 feet height. Patient remembers the event. He denies any loss of consciousness. No nausea or vomiting. Denies other injury at the time of the incident. EMS does report that they attempted to break his fall. No neck pain. Patient did suffer laceration lateral to the left eyebrow. Patient denies other injury to time the incident. Unclear etiology for the patient's low hemoglobin although he is anticoagulated on Xarelto. Again, will evaluate this further with notes from [facility]. Of note, when patient last had labs checked on 05/28/2024, patient's hemoglobin is 7.1 down from 12.2 about 1 month prior. Patient is endorsing some shortness of breath. States that he has been using updraft with some relief of his symptoms. On exam, patient appears chronically ill. He is morbidly obese, appears dehydrated, tachypneic and tachycardic. Patient blood pressure is stable. O2 is slightly low at 92, 93% on room air. However, with his shortness of breath and increased work of breathing, will put the patient on 2 L oxygen. Patient does have a small laceration, about 1 cm, lateral to the left eyebrow with no active bleeding. He does have blood on the side of his face at all appears dry. No palpable scalp skull fracture. Neurologically intact and appropriate. No evidence of other facial trauma, no pain around the orbits and good extraocular movements. Patient does have wrappings over the right lower extremity consistent with his recent admission for cellulitis. He does have significant edema. Patient has diminished lung sounds. Concern primarily that the elevated creatinine and shortness of breath is associated with the patient's significant anemia. Patient I discussed risk/benefits as well as alternative options for 1 unit blood transfusion. He was understanding and wishes to move forward with transfusion. With the patient's fall, particularly as he is anticoagulated, will obtain a CT of his head to evaluate for any intracranial hemorrhage. My initial exam does not suggest intracranial hemorrhage. He has no midline tenderness and has good range of motion of his C-spine, no indication of C-spine injury during fall. No significant bleeding that is persisting, will hold off on any immediate intervention to reverse his anticoagulation. This appears to be more of a chronic issue. The clinician from the care facility where he resides did call and recommend holding patient's Xarelto. They also advised giving the patient Lasix. However, would like to hold off on Lasix until further evaluation for time being. Reviewed note from [facility] recent admission for sepsis and right lower extremity infection. At that time, patient did have anemia, EGD was completed on 05/22/2024 showing a duodenal ulcer. This was clipped and treated with epinephrine. Patient's hemogram was stable at 7.8 at the time of discharge. He was started on twice daily PPI. He was given EPO prior to discharge as well. At the time of d/c from [facility], he has remained on xarelto. He was also restarted on diltiazem, lasix, carvedilol. he is scheduled for ceftriaxone via central line until 06/04. FINDINGS: Brain: There is mild diffuse heterogeneity of the white matter attenuation, consistent with chronic white matter microangiopathic ischemic changes. There is mild diffuse cerebral atrophy present. There is no evidence of intracranial hemorrhage. There is no evidence of acute intracranial injury or other pathologic process. There is no evidence of an acute ischemic event. Cerebral ventricles: The ventricular system demonstrates mild diffuse compensatory enlargement. Paranasal sinuses: Mucoperiosteal thickening consistent with chronic sinusitis. No air-fluid levels to suggest evidence of acute sinusitis. Mastoid air cells: The mastoid aircells are normal. Orbital cavities: The orbits are normal without evidence of fracture. There is no evidence of retro-bulbar hemorrhage. There is no evidence of globe or lens injury. Bones: There is a fracture of the nasal bones age-indeterminate likely acute. The bony cranium shows no evidence of injury or other acute pathologic processes. Soft tissues: There is soft tissue swelling of the left preseptal periorbital soft tissues. IMPRESSION: 1. No evidence of an acute intracranial abnormality. 2. There is mild age-related atrophy and chronic white matter ischemic changes, with compensatory ventricular dilation. 3. There is a fracture of the nasal bones age-indeterminate, likely acute. 4. There is soft tissue swelling of the left preseptal periorbital soft tissues. Patient does not have any pain to palpation over the nose currently but does report that he has had 3 previous episodes of nasal fractures, this is likely associated with previous injury. FINDINGS: Tubes, catheters and devices: There is a right internal jugular central venous catheter present within tip of the catheter at the cavoatrial junction. Lungs: There is pulmonary venous congestion. There is diffuse interstitial edema. Underlying inflammatory or infectious process not excluded. Pleural spaces: There is a probable small left pleural effusion. No evidence of pneumothorax. Heart/Mediastinum: The heart is enlarged. There is prominence of the mediastinum. Bones/joints: The skeletal structures and soft tissues show no evidence of fracture or other acute processes. Soft tissues: The soft tissues of the extrathoracic region are unremarkable. IMPRESSION: 1. Probable congestive heart failure. Underlying inflammatory or infectious process not excluded. 2. There is a right internal jugular central venous catheter present within tip of the catheter at the cavoatrial junction. 3. There is a probable small left pleural effusion. Labs are reassuring. Hemoglobin is 7.6. Patient did have this same similar episode while admitted at [facility]. I do not see indication at this time for transfusion. His creatinine was elevated at 4.0 which does appear to be essentially his baseline recently. In 2022, baseline is around 1.5 but is been significantly elevated as of this year. His potassium is within normal limits. His BNP is elevated at 6400 which is also not grossly elevated compared to previous. Patient is currently receiving daily Lasix. Albumin is low at 1.9. Imaging reviewed without significant abnormality. Bedside echo performed by Dr. Saint Valenzuela. IVC 2.5 cm. He did respond well to small fluid bolus and is tolerating p.o. intake. No gross abnormality appreciated. From what I can see from [facility] see discharge note, no formal cardiac echo was obtained. , Addressed patient's wound. Patient discussed risk and benefits of adhesive closure. He does not have any significant depth to the laceration. However, I am concerned about potential continued bleeding as the patient is anticoagulated. Wound was cleansed by myself. Copiously irrigated. Does have a small superficial abrasion superficial to the small laceration. A thin layer of adhesive was applied over the small laceration. Patient I discussed continued wound care and care of the adhesive. We also discussed signs symptoms of infection that should prompt further evaluation. Patient I discussed continued care. We discussed evaluation while here. Patient feels that at this point, he continues to feel as he has since he was discharged from his foot infection as well as his upper GI bleed. He states that he continues to be fatigued but not worse than typical. She feels of the shortness of breath is chronic and unchanged. He does have an appointment later this week at [facility] for follow-up. His hemoglobin is unchanged and patient does not have evidence to suggest significant acute bleeding, I do not see need to stop his Xarelto. Rather, will defer to his primary care provider and his [facility] team to determine need to stop this medication. Will not give a dose tonight so he is able to discuss this tomorrow with his care team. Patient did feel significantly improved after DuoNeb, he feels that these work well at his rehab facility. He is agreed to transfer back to their facility in his baseline condition. Return precautions discussed. Quality:SDOH Health Related Social Needs: 2 No Data to Display PFSH All Active Problems (Updated 06/03/24 @ 23:25 by PRASANNA Mary) Acute head trauma (Acute) Laceration of skin of face (Acute) CKD (chronic kidney disease) (Chronic) Anemia (Chronic) Septic shock (Acute) Acute hyponatremia (Acute) Acute renal failure (Acute) Right carpal tunnel syndrome (Acute) Atrial fibrillation with RVR (Acute) Cellulitis of right leg (Acute) HTN (hypertension) (Chronic) H/O surgical procedure (Chronic) a. Umbilical herniorrhaphy b. Tonsillectomy Right lumbar radiculitis (Chronic) Spondylosis of lumbar region without myelopathy or radiculopathy (Chronic) Cellulitis (Acute) CHF (congestive heart failure) (Chronic) DVT prophylaxis (Acute) Discharge planning issues (Acute) Bacteremia (Acute) Acute kidney injury (Acute) PAD (peripheral artery disease) (Acute) Acute on chronic diastolic CHF (congestive heart failure), NYHA class 1 (Acute) Atrial fibrillation (Chronic) Diabetes mellitus type 2 in obese (Acute) CKD (chronic kidney disease) stage 3, GFR 30-59 ml/min (Acute 08/28/14) 07/2014 US R renal cyst otherwise NL Osteopenia (Acute 06/02/13) Overweight (Acute 04/08/12) Bilateral carpal tunnel syndrome (Acute) Cubital tunnel syndrome, bilateral (Acute) Medical History Anxiety Atrial fibrillation 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) broken rt thumb (10/10/16) Carpal tunnel syndrome Chronic back pain COPD (chronic obstructive pulmonary disease) Dilated aortic root Diverticulosis Edema Essential hypertension 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) Male erectile disorder (06/02/13) Onychodystrophy Physical deconditioning Subjective pulsatile tinnitus Type 2 diabetes mellitus Vitamin D deficiency Surgical History Colonoscopy - IV Sedation (01/15/15) Dr Templeton Right knee surgery after injury Family History Grandfather Diabetes Grandmother Diabetes Social History Smoking/Tobacco Use Status: Former Tobacco Use Smoking risk assessment performed?: Yes Alcohol Intake: current Alcohol Intake frequency: a few times a week Alcohol type: beer Drug use: Rarely Substance use type: marijuana Housing: apartment Do you feel safe at home: Yes Do you feel safe in your relationship?: Yes
--- OUTSIDE RECORDS SUMMARY | 2024-06-03 20:35 | XMS_ITS | Data Portability ---
Author Organization [place] [facility] Address [place] [address] Assessment Encounter Date Assessment Date Assessment LastModified by Organization Details LastModified Time 05/27/2024 05/27/2024 Unable to reach patient on the phone. No charge for visit. crystal Not available 05/27/2024 17:06:18 05/30/2024 05/30/2024 The total time devoted to today's encounter, including both the [id number] time with the patient and/or family/caregi rocio and [id number] derek time I personally spent is 20 minutes. crystal Not available 05/30/2024 11:55:20 Plan of Treatment Reminders Order Date Submit [...] Range Abnormal Flag LastModifiedBy Organization Detail LastModifiedTime 05/09/2005/09/2024 VENOU S BLOOD GAS pH (venous) 7.31 7.31-7 .41 normal Not Available [address] [place], [address] 2024 17:59:16 05/09/20 24 2024 VENOU S BLOOD GAS pCO2 (venous) 54 mmHg 41-51 high Not Available [address] [place], [address] 2024 17:59:16 05/09/20 24 2024 VENOU S BLOOD GAS pO2 (venous) 26 mmHg Not Available [address] [place], [address] 2024 17:59:16 05/09/20 24 2024 VENOU S BLOOD GAS TCO2 (venous) 25 mmol/ L 24-29 normal Not Available [address] [place], [address] 2024 17:59:16 05/09/20 24 2024 VENOU S BLOOD GAS HCO3 (venous) 27 mmol/ L 23-28 normal Not Available [address] [place], [address] 2024 17:59:16 05/09/20 24 2024 VENOU S BLOOD GAS BE (venous) 1 mmol/ L -2-3 normal Not Available [address] [place], [address] 2024 17:59:16 05/09/20 24 2024 VENOU S BLOOD GAS O2 sat (venous) 42 % Not Available [address] [place], [address] 2024 17:59:16 05/09/20 24 2024 LACTA TE lactate 2.2 mmol/ L 0.6-1. 4 panic high Not Available [address] [place], [address] 2024 18:00:16 05/09/20 24 2024 ESR ESR 60 mm/HR 0-20 high Not Available [address] [place], [address] 2024 18:04:16 05/09/20 24 2024 COMPL ETE BLOOD COUNT W/DIF F WBC 33.55 10_3/ uL 4.4-10 .8 panic high Not Available [address] [place], [address] 2024 18:21:18 05/09/20 24 2024 COMPL ETE BLOOD COUNT W/DIF F RBC 3.98 10_6/ uL 4.36-5 .78 low Not Available [address] [place], [address] 2024 18:21:18 05/09/20 24 2024 COMPL ETE BLOOD COUNT W/DIF F HGB 12.2 g/dL 13.5-1 7.5 low Not Available [address] [place], [address] 2024 18:21:18 05/09/20 24 2024 COMPL ETE BLOOD COUNT W/DIF F HCT 37.0 % 40.0-5 0.0 low Not Available [address] [place], [address] 2024 18:21:18 05/09/20 24 2024 COMPL ETE BLOOD COUNT W/DIF F MCV 93 fL 80-95 normal Not Available [address] [place], [address] 2024 18:21:18 05/09/20 24 2024 COMPL ETE BLOOD COUNT W/DIF F MCH 30.7 pg 27.0-3 3.0 normal Not Available [address] [place], [address] 2024 18:21:18 05/09/20 24 2024 COMPL ETE BLOOD COUNT W/DIF F MCHC 33.0 % 32.0-3 6.0 normal Not Available [address] [place], [address] 2024 18:21:18 05/09/20 24 2024 COMPL ETE BLOOD COUNT W/DIF F RDW 15.3 % 11.8-1 4.1 high Not Available [address] [place], [address] 2024 18:21:18 05/09/20 24 2024 COMPL ETE BLOOD COUNT W/DIF F platelet count 145 10_3/ uL 130-40 0 normal Not Available [address] [place], [address] 2024 18:21:18 05/09/20 24 2024 COMPL ETE BLOOD COUNT W/DIF F MPV 12.4 fL 8.0-11 .0 high Not Available [address] [place], [address] 2024 18:21:18 05/09/20 24 2024 COMPL ETE BLOOD COUNT W/DIF F neutrophils % 87.0 % Not Available [address] [place], [address] 2024 18:21:18 05/09/20 24 2024 COMPL ETE BLOOD COUNT W/DIF F bands % 2 % Not Available [address] [place], [address] 2024 18:21:18 05/09/20 24 2024 COMPL ETE BLOOD COUNT W/DIF F lymphocytes % 3.0 % Not Available [address] [facility] [place], [address] 2024 18:21:18 05/09/20 24 2024 COMPL ETE BLOOD COUNT W/DIF F monocytes % 8.0 % Not Available [address] [facility] [place], [address] 2024 18:21:18 05/09/20 24 2024 COMPL ETE BLOOD COUNT W/DIF F eosinophils % 0.0 % Not Available [address] [place], [address] 2024 18:21:18 05/09/20 24 2024 COMPL ETE BLOOD COUNT W/DIF F basophils % 0.0 % Not Available [address] [facility] [place], [address] 2024 18:21:18 05/09/20 24 2024 COMPL ETE BLOOD COUNT W/DIF F immature grans % 0.0 % Not Available [address] [place], [address] 2024 18:21:18 05/09/20 24 2024 COMPL ETE BLOOD COUNT W/DIF F nucleated RBC 0.0 % 0.0-0. 3 normal Not Available [address] [place], [address] 2024 18:21:18 05/09/20 24 2024 COMPL ETE BLOOD COUNT W/DIF F absolute neutrophil count 29.86 10_3/ uL 1.2-6. 7 high Not Available [address] [place], [address] 2024 18:21:18 05/09/20 24 2024 COMPL ETE BLOOD COUNT W/DIF F absolute lymphocyte count 1.01 10_3/ uL 1.2-3. 4 low Not Available [address] [place], [address] 2024 18:21:18 05/09/20 24 2024 COMPL ETE BLOOD COUNT W/DIF F absolute monocyte count 2.68 10_3/ uL 0.1-0. 8 high Not Available [address] [place], [address] 2024 18:21:18 05/09/20 24 2024 COMPL ETE BLOOD COUNT W/DIF F absolute eosinophil count 0.00 10_3/ uL 0.0-0. 7 normal Not Available [address] [place], [address] 2024 18:21:18 05/09/20 24 2024 COMPL ETE BLOOD COUNT W/DIF F absolute basophil count 0.00 10_3/ uL 0.0-0. 2 normal Not Available [address] [place], [address] 2024 18:21:18 05/09/20 24 2024 COMPL ETE BLOOD COUNT W/DIF F diff comment Manual Differ ential Not Available [address] [place], [address] 2024 18:21:18 05/09/20 24 2024 COMPL ETE BLOOD COUNT W/DIF F RBC morphology Normal Not Available [address] [place], [address] 2024 18:21:18 05/09/20 24 2024 COMPR EHENS CHARLES METAB OLIC PANEL calcium 9.1 mg/dL 8.5-10 .1 normal Not Available [address] [place], [address] 2024 18:25:19 05/09/20 24 2024 COMPR EHENS CHARLES METAB OLIC PANEL glucose 148 mg/dL 74-106 high Not Available [address] [place], [address] 2024 18:25:19 05/09/20 24 2024 COMPR EHENS CHARLES METAB OLIC PANEL BUN 75 mg/dL 7-18 high Not Available [address] [place], [address] 2024 18:25:19 05/09/20 24 2024 COMPR EHENS CHARLES METAB OLIC PANEL creatinine 4.7 mg/dL 0.70-1 .30 panic high Not Available [address] [place], [address] 2024 18:25:19 05/09/20 24 2024 COMPR EHENS CHARLES METAB OLIC PANEL estimated GFR 12.64 mL/min /1.73m 2 Not Available [address] [place], [address] 2024 18:25:19 05/09/20 24 2024 COMPR EHENS CHARLES METAB OLIC PANEL total protein 8.3 g/dL 6.4-8. 2 high Not Available [address] [place], [address] 2024 18:25:19 05/09/20 24 2024 COMPR EHENS CHARLES METAB OLIC PANEL albumin 2.9 g/dL 3.4-5. 0 low Not Available [address] [place], [address] 2024 18:25:19 05/09/20 24 2024 COMPR EHENS CHARLES METAB OLIC PANEL bilirubin, total 0.73 mg/dL 0.2-1. 0 normal Not Available [address] [place], [address] 2024 18:25:19 05/09/20 24 2024 COMPR EHENS CHARLES METAB OLIC PANEL alk phos 38 U/L 46-116 low Not Available [address] [place], [address] 2024 18:25:19 05/09/20 24 2024 COMPR EHENS CHARLES METAB OLIC PANEL sodium 130 mmol/ L 136-14 5 low Not Available [address] [place], [address] 2024 18:25:19 05/09/20 24 2024 COMPR EHENS CHARLES METAB OLIC PANEL potassium 5.4 mmol/ L 3.5-5. 1 high Not Available [address] [place], [address] 2024 18:25:19 05/09/20 24 2024 COMPR EHENS CHARLES METAB OLIC PANEL chloride 93 mmol/ L 98-107 low Not Available [address] [place], [address] 2024 18:25:19 05/09/20 24 2024 COMPR EHENS CHARLES METAB OLIC PANEL CO2 27.8 mmol/ L 21.0-3 2.0 normal Not Available [address] [place], [address] 2024 18:25:19 05/09/20 24 2024 COMPR EHENS CHARLES METAB OLIC PANEL anion gap 9.2 mmol/ L 3-11 normal Not Available [address] [place], [address] 2024 18:25:19 05/09/20 24 2024 COMPR EHENS CHARLES METAB OLIC PANEL AST 15 U/L 15-37 normal Not Available [address] [place], [address] 2024 18:25:19 05/09/20 24 2024 COMPR EHENS CHARLES METAB OLIC PANEL ALT 25 U/L 16-63 normal Not Available [address] [place], [address] 2024 18:25:19 05/09/20 24 2024 NT-UT OBNP nt-probnp 6988 pg/mL <300 high Not Available [address] [place], [address] 2024 18:25:19 05/09/20 24 2024 C-LIZZ CTIVE PROTE IN C-reactive protein > 25.00 mg/dL <or=0. 5 high Not Available [address] [place], [address] 2024 18:28:19 05/09/20 24 2024 LACTA TE lactate 2.2 mmol/ L 0.6-1. 4 panic high Not Available [address] [place], [address] 2024 18:30:22 05/09/20 24 2024 PROCA LCITO TI procalcitoni n 57.0 NG/mL Not Available [address] [place], [address] 2024 18:30:23 05/09/20 24 2024 COVID /FLU/ RSV PCR source Nasoph arynx Not Available [address] [place], [address] 2024 18:47:21 05/09/20 24 2024 COVID /FLU/ RSV PCR covid-19 PCR Negati ve negati ve Not Available [address] [place], [address] 2024 18:47:21 05/09/20 24 2024 COVID /FLU/ RSV PCR influenza A PCR Negati ve negati ve Not Available [address] [place], [address] 2024 18:47:21 05/09/20 24 2024 COVID /FLU/ RSV PCR influenza B PCR Negati ve negati ve Not Available [address] [place], [address] 2024 18:47:21 05/09/20 24 2024 COVID /FLU/ RSV PCR RSV PCR Negati ve negati ve Not Available [address] [place], [address] 2024 18:47:21 05/09/20 24 2024 CREAT INE KINAS E creatine kinase 65 U/L 39-308 normal Not Available [address] [place], [address] 2024 19:15:25 05/09/20 24 2024 LACTA TE lactate 1.5 mmol/ L 0.6-1. 4 high Not Available [address] [place], [address] 2024 20:23:38 05/09/20 24 2024 URINA LYSIS color Dark Yellow yellow Not Available [address] [place], [address] 2024 20:38:39 05/09/20 24 2024 URINA LYSIS clarity Clear clear Not Available [facility] [address] [place], [address] 2024 20:38:39 05/09/20 24 2024 URINA LYSIS specific gravity 1.020 1.005- 1.025 normal Not Available [address] [place], [address] 2024 20:38:39 05/09/20 24 2024 URINA LYSIS pH 5.0 5-8 normal Not Available [id number] [place], [address] 2024 20:38:39 05/09/20 24 2024 URINA LYSIS leukocyte esterase Negati ve negati ve Not Available [address] [place], [address] 2024 20:38:39 05/09/20 24 2024 URINA LYSIS nitrite Negati ve negati ve Not Available [address] [place], [address] 2024 20:38:39 05/09/20 24 2024 URINA LYSIS protein 30 mg/dL neg-tr derek abnormal Not Available [address] [place], [address] 2024 20:38:39 05/09/20 24 2024 URINA LYSIS glucose Negati ve mg/dL negati ve Not Available [address] [place], [address] 2024 20:38:39 05/09/20 24 2024 URINA LYSIS ketones Negati ve mg/dL negati ve Not Available [address] [place], [address] 2024 20:38:39 05/09/20 24 2024 URINA LYSIS urobilinogen 0.2 mg/dL up to 0.2 Not Available [address] [place], [address] 2024 20:38:39 05/09/20 24 2024 URINA LYSIS bilirubin Small negati ve abnormal Not Available [address] [place], [address] 2024 20:38:39 05/09/20 24 2024 URINA LYSIS blood Trace- lysed negati ve abnormal Not Available [address] [place], [address] 2024 20:38:39 05/09/20 24 2024 BASIC METAB OLIC PANEL calcium 8.4 mg/dL 8.5-10 .1 low Not Available [address] [place], [address] 2024 20:43:40 05/09/20 24 2024 BASIC METAB OLIC PANEL glucose 142 mg/dL 74-106 high Not Available [address] [place], [address] 2024 20:43:40 05/09/20 24 2024 BASIC METAB OLIC PANEL BUN 74 mg/dL 7-18 high Not Available [address] [place], [address] 2024 20:43:40 05/09/20 24 2024 BASIC METAB OLIC PANEL creatinine 4.7 mg/dL 0.70-1 .30 panic high Not Available [address] [place], [address] 2024 20:43:40 05/09/20 24 2024 BASIC METAB OLIC PANEL estimated GFR 12.64 mL/min /1.73m 2 Not Available [address] [place], [address] 2024 20:43:40 05/09/20 24 2024 BASIC METAB OLIC PANEL sodium 130 mmol/ L 136-14 5 low Not Available [address] [place], [address] 2024 20:43:40 05/09/20 24 2024 BASIC METAB OLIC PANEL potassium 5.8 mmol/ L 3.5-5. 1 high Not Available [address] [place], [address] 2024 20:43:40 05/09/20 24 2024 BASIC METAB OLIC PANEL chloride 94 mmol/ L 98-107 low Not Available [address] [place], [address] 2024 20:43:40 05/09/20 24 2024 BASIC METAB OLIC PANEL CO2 27.6 mmol/ L 21.0-3 2.0 normal Not Available [address] [place], [address] 2024 20:43:40 05/09/20 24 2024 BASIC METAB OLIC PANEL anion gap 8.4 mmol/ L 3-11 normal Not Available [address] [place], [address] 2024 20:43:40 05/09/20 24 2024 URINA LYSIS color Dark Yellow yellow Not Available [address] [place], [address] 2024 20:49:42 05/09/20 24 2024 URINA LYSIS clarity Clear clear Not Available [facility] [address] [place], [address] 2024 20:49:42 05/09/20 24 2024 URINA LYSIS specific gravity 1.020 1.005- 1.025 normal Not Available [address] [place], [address] 2024 20:49:42 05/09/20 24 2024 URINA LYSIS pH 5.0 5-8 normal Not Available [facility] [address] [place], [address] 2024 20:49:42 05/09/20 24 2024 URINA LYSIS leukocyte esterase Negati ve negati ve Not Available [address] [place], [address] 2024 20:49:42 05/09/20 24 2024 URINA LYSIS nitrite Negati ve negati ve Not Available [address] [place], [address] 2024 20:49:42 05/09/20 24 2024 URINA LYSIS protein 30 mg/dL neg-tr derek abnormal Not Available [address] [place], [address] 2024 20:49:42 05/09/20 24 2024 URINA LYSIS glucose Negati ve mg/dL negati ve Not Available [address] [place], [address] 2024 20:49:42 05/09/20 24 2024 URINA LYSIS ketones Negati ve mg/dL negati ve Not Available [address] [place], [address] 2024 20:49:42 05/09/20 24 2024 URINA LYSIS urobilinogen 0.2 mg/dL up to 0.2 Not Available [address] [place], [address] 2024 20:49:42 05/09/20 24 2024 URINA LYSIS bilirubin Small negati ve abnormal Not Available [address] [place], [address] 2024 20:49:42 05/09/20 24 2024 URINA LYSIS blood Trace- lysed negati ve abnormal Not Available [address] [place], [address] 2024 20:49:42 05/09/20 24 2024 MICRO SCOPI C FINDI NGS WBC 0-2 hpf 0-5 Not Available [address] [place], [address] 2024 20:49:42 05/09/20 24 2024 MICRO SCOPI C FINDI NGS RBC 3-5 hpf 0-2 abnormal Not Available [address] [place], [address] 2024 20:49:42 05/09/20 24 2024 MICRO SCOPI C FINDI NGS epithelial cells Few hpf negati ve Not Available [address] [place], [address] 2024 20:49:42 05/09/20 24 2024 MICRO SCOPI C FINDI NGS bacteria Negati ve hpf negati ve Not Available [address] [place], [address] 2024 20:49:42 05/09/20 24 2024 MICRO SCOPI C FINDI NGS crystals Negati ve hpf negati ve Not Available [address] [place], [address] 2024 20:49:42 05/09/20 24 2024 MICRO SCOPI C FINDI NGS mucus Trace negati ve Not Available [address] [place], [address] 2024 20:49:42 05/09/20 24 2024 MICRO SCOPI C FINDI NGS C S indicated? No Not Available [address] [place], [address] 2024 20:49:42 05/09/20 24 2024 CREAT ININE ,URIN E creatinine,u rine 178.13 mg/dL Not Available [address] [place], [address] 2024 21:01:41 05/09/20 24 2024 SODIU M, URINE sodium, urine 34 mmol/ L Not Available [address] [place], [address] 2024 21:01:41 05/09/20 24 2024 GRAM STAIN gram stain Not Available [address] [place], [address] 2024 21:19:42 05/09/20 24 05/12/2024 WOUND AEROB IC CULTU RE wound aerobic culture Not Available [address] [place], [address] 05/12/2024 10:07:33 05/09/20 24 05/10/2024 BLOOD CULTU RE ( AGE => 9 YRS) blood culture ( age => 9 yrs) Not Available [address] [place], [address] 05/10/2024 19:54:31 05/09/20 24 05/10/2024 BLOOD CULTU RE ( AGE => 9 YRS) blood culture ( age => 9 yrs) Not Available [address] [place], [address] 05/10/2024 20:03:33 05/09/20 24 05/11/2024 BLOOD CULTU RE ( AGE => 9 YRS) blood culture ( age => 9 yrs) Not Available [address] [place], [address] 05/11/2024 19:55:07 05/09/20 24 05/11/2024 BLOOD CULTU RE ( AGE => 9 YRS) blood culture ( age => 9 yrs) Not Available [address] [place], [address] 05/11/2024 20:04:08 05/09/20 24 05/12/2024 BLOOD CULTU RE ( AGE => 9 YRS) blood culture ( age => 9 yrs) Not Available [address] [place], [address] 05/12/2024 19:54:51 05/09/20 24 05/12/2024 BLOOD CULTU RE ( AGE => 9 YRS) blood culture ( age => 9 yrs) Not Available [address] [place], [address] 05/12/2024 20:04:53 05/09/20 24 05/13/2024 BLOOD CULTU RE ( AGE => 9 YRS) blood culture ( age => 9 yrs) Not Available [address] [place], [address] 05/13/2024 19:54:00 05/09/20 24 05/13/2024 BLOOD CULTU RE ( AGE => 9 YRS) blood culture ( age => 9 yrs) Not Available [address] [place], [address] 05/13/2024 20:04:00 05/09/20 24 05/14/2024 BLOOD CULTU RE ( AGE => 9 YRS) blood culture ( age => 9 yrs) Not Available [address] [place], [address] 05/14/2024 19:54:56 05/09/20 24 05/14/2024 BLOOD CULTU RE ( AGE => 9 YRS) blood culture ( age => 9 yrs) Not Available [address] [place], [address] 05/14/2024 20:40:58 05/28/20 24 05/28/2024 COMPR EHENS CHARLES METAB OLIC PANEL calcium 8.9 mg/dL 8.5-10 .1 normal Not Available [address] [place], [address] 05/28/2024 17:53:10 05/28/20 24 05/28/2024 COMPR EHENS CHARLES METAB OLIC PANEL glucose 132 mg/dL 74-106 high Not Available [address] [place], [address] 05/28/2024 17:53:10 05/28/20 24 05/28/2024 COMPR EHENS CHARLES METAB OLIC PANEL BUN 67 mg/dL 7-18 high Not Available [address] [place], [address] 05/28/2024 17:53:10 05/28/20 24 05/28/2024 COMPR EHENS CHARLES METAB OLIC PANEL creatinine 3.3 mg/dL 0.70-1 .30 high Not Available [address] [place], [address] 05/28/2024 17:53:10 05/28/20 24 05/28/2024 COMPR EHENS CHARLES METAB OLIC PANEL estimated GFR 19.32 mL/min /1.73m 2 Not Available [address] [place], [address] 05/28/2024 17:53:10 05/28/20 24 05/28/2024 COMPR EHENS CHARLES METAB OLIC PANEL total protein 6.3 g/dL 6.4-8. 2 low Not Available [address] [place], [address] 05/28/2024 17:53:10 05/28/20 24 05/28/2024 COMPR EHENS CHARLES METAB OLIC PANEL albumin 1.9 g/dL 3.4-5. 0 low Not Available [address] [place], [address] 05/28/2024 17:53:10 05/28/2005/28/2024 COMPR EHENS CHARLES METAB OLIC PANEL bilirubin, total 0.19 mg/dL 0.2-1. 0 low Not Available [address] [place], [address] 05/28/2024 17:53:10 05/28/2005/28/2024 COMPR EHENS CHARLES METAB OLIC PANEL alk phos 85 U/L 46-116 normal Not Available [address] [place], [address] 05/28/2024 17:53:10 05/28/2005/28/2024 COMPR EHENS CHARLES METAB OLIC PANEL sodium 139 mmol/ L 136-14 5 normal Not Available [address] [place], [address] 05/28/2024 17:53:10 05/28/2005/28/2024 COMPR EHENS CHARLES METAB OLIC PANEL potassium 4.8 mmol/ L 3.5-5. 1 normal Not Available [address] [place], [address] 05/28/2024 17:53:10 05/28/2005/28/2024 COMPR EHENS CHARLES METAB OLIC PANEL chloride 103 mmol/ L 98-107 normal Not Available [address] [place], [address] 05/28/2024 17:53:10 05/28/2005/28/2024 COMPR EHENS CHARLES METAB OLIC PANEL CO2 21.8 mmol/ L 21.0-3 2.0 normal Not Available [address] [place], [address] 05/28/2024 17:53:10 05/28/2005/28/2024 COMPR EHENS CHARLES METAB OLIC PANEL anion gap 14.2 mmol/ L 3-11 high Not Available [address] [place], [address] 05/28/2024 17:53:10 05/28/20 24 05/28/2024 COMPR EHENS CHARLES METAB OLIC PANEL AST 11 U/L 15-37 low Not Available [address] [place], [address] 05/28/2024 17:53:10 05/28/20 24 05/28/2024 COMPR EHENS CHARLES METAB OLIC PANEL ALT 24 U/L 16-63 normal Not Available [address] [place], [address] 05/28/2024 17:53:10 05/28/20 24 05/28/2024 C-LIZZ CTIVE PROTE IN C-reactive protein 17.10 mg/dL <or=0. 5 high Not Available [address] [place], [address] 05/28/2024 17:53:11 05/28/20 24 05/28/2024 COMPL ETE BLOOD COUNT W/DIF F WBC 8.88 10_3/ uL 4.4-10 .8 normal Not Available [address] [place], [address] 05/28/2024 18:03:14 05/28/20 24 05/28/2024 COMPL ETE BLOOD COUNT W/DIF F RBC 2.31 10_6/ uL 4.36-5 .78 low Not Available [address] [place], [address] 05/28/2024 18:03:14 05/28/20 24 05/28/2024 COMPL ETE BLOOD COUNT W/DIF F HGB 7.1 g/dL 13.5-1 7.5 low Not Available [address] [place], [address] 05/28/2024 18:03:14 05/28/2005/28/2024 COMPL ETE BLOOD COUNT W/DIF F HCT 21.8 % 40.0-5 0.0 low Not Available [address] [place], [address] 05/28/2024 18:03:14 05/28/20 24 05/28/2024 COMPL ETE BLOOD COUNT W/DIF F MCV 94 fL 80-95 normal Not Available Jory morales [address] [place], [address] 05/28/2024 18:03:14 05/28/20 24 05/28/2024 COMPL ETE BLOOD COUNT W/DIF F MCH 30.7 pg 27.0-3 3.0 normal Not Available [address] [place], [address] 05/28/2024 18:03:14 05/28/20 24 05/28/2024 COMPL ETE BLOOD COUNT W/DIF F MCHC 32.6 % 32.0-3 6.0 normal Not Available [address] [place], [address] 05/28/2024 18:03:14 05/28/2005/28/2024 COMPL ETE BLOOD COUNT W/DIF F RDW 16.5 % 11.8-1 4.1 high Not Available [address] [place], [address] 05/28/2024 18:03:14 05/28/20 24 05/28/2024 COMPL ETE BLOOD COUNT W/DIF F platelet count 355 10_3/ uL 130-40 0 normal Not Available [address] [place], [address] 05/28/2024 18:03:14 05/28/20 24 05/28/2024 COMPL ETE BLOOD COUNT W/DIF F MPV 11.7 fL 8.0-11 .0 high Not Available [address] [place], [address] 05/28/2024 18:03:14 05/28/20 24 05/28/2024 COMPL ETE BLOOD COUNT W/DIF F neutrophils % 75.0 % Not Available [address] [place], [address] 05/28/2024 18:03:14 05/28/2005/28/2024 COMPL ETE BLOOD COUNT W/DIF F lymphocytes % 8.7 % Not Available [address] [place], [address] 05/28/2024 18:03:14 05/28/20 24 05/28/2024 COMPL ETE BLOOD COUNT W/DIF F monocytes % 12.8 % Not Available [address] [place], [address] 05/28/2024 18:03:14 05/28/20 24 05/28/2024 COMPL ETE BLOOD COUNT W/DIF F eosinophils % 2.4 % Not Available [address] [place], [address] 05/28/2024 18:03:14 05/28/20 24 05/28/2024 COMPL ETE BLOOD COUNT W/DIF F basophils % 0.6 % Not Available [address] [place], [address] 05/28/2024 18:03:14 05/28/20 24 05/28/2024 COMPL ETE BLOOD COUNT W/DIF F immature grans % 0.5 % Not Available [address] [place], [address] 05/28/2024 18:03:14 05/28/20 24 05/28/2024 COMPL ETE BLOOD COUNT W/DIF F nucleated RBC 0.0 % 0.0-0. 3 normal Not Available [address] [place], [address] 05/28/2024 18:03:14 05/28/20 24 05/28/2024 COMPL ETE BLOOD COUNT W/DIF F absolute neutrophil count 6.67 10_3/ uL 1.2-6. 7 normal Not Available [address] [place], [address] 05/28/2024 18:03:14 05/28/20 24 05/28/2024 COMPL ETE BLOOD COUNT W/DIF F absolute lymphocyte count 0.77 10_3/ uL 1.2-3. 4 low Not Available [address] [place], [address] 05/28/2024 18:03:14 05/28/20 24 05/28/2024 COMPL ETE BLOOD COUNT W/DIF F absolute monocyte count 1.14 10_3/ uL 0.1-0. 8 high Not Available [address] [place], [address] 05/28/2024 18:03:14 05/28/20 24 05/28/2024 COMPL ETE BLOOD COUNT W/DIF F absolute eosinophil count 0.21 10_3/ uL 0.0-0. 7 normal Not Available [address] [place], [address] 05/28/2024 18:03:14 05/28/20 24 05/28/2024 COMPL ETE BLOOD COUNT W/DIF F absolute basophil count 0.05 10_3/ uL 0.0-0. 2 normal Not Available [address] [place], [address] 05/28/2024 18:03:14 05/28/20 24 05/28/2024 COMPL ETE BLOOD COUNT W/DIF F diff comment RBC Morph Review ed Not Available [address] [place], [address] 05/28/2024 18:03:14 05/28/2005/28/2024 COMPL ETE BLOOD COUNT W/DIF F RBC morphology See Below Not Available [address] [place], [address] 05/28/2024 18:03:14 05/28/20 24 05/28/2024 COMPL ETE BLOOD COUNT W/DIF F anisocytosis 1+ Not Available Nor the[address] [place], [address] 05/28/2024 18:03:14 05/09/2005/09/2024 x-ray imagi ng repor t Kisha t Name: Jossy Leyva Unit #: [id number] Loc: ER Orderi ng Provid er: Timothy rs,Yelena n PRASANNA Accoun t #: [id number] Status : PRE ER Primar y Care Provid er: Rishi on,Pat bimal Date of Exam: Sex: M Admiss ion [...] ION DOSE DELIVE RED: Ordere d By: Timothy blake,Yelena MIMS CC: ------ ------ ------ ------ ------ ------ ------ ------ ------ ------ ------ ------ - Dictat ed By: Anand Caballero M.D. 1810 Transc ribed By: Ada SOTOMAYOR,Tolu sonu 1810 This is privil eged, confid ential inform ation intend ed only for the provid er named. Any use or distri bution by any person other than this provid er is strict ly prohib ited. If you receiv e this report in error, please notify us immedi ately at [phone] and return the origin al report to us at the addres s above. Thank- you. crystal [facility] [address] [facility] [place], [address] 05/12/2024 08:01:30 05/09/20 24 2024 leah santiago Name: Jossy Leyva Unit #: [id number] Loc: ER Orderi ng Provid er: Accoun t #: [id number] Status : REG ER Primar y Care Provid er: Rishi hall,Chanda wallis Date of Exam: Sex: M : 1954 Age: 69 Exam(s ) PROCED URE INFORM ATION: Exam: CT Chest Withou t Contra st; Diagno stic Exam date and time: 7:36 PM Age: 69 years old Clinic [...] TABITHA: CR XR PORTAB LE CHEST AP 6:05 PM FINDIN GS: Lungs: No acute [...] mastia . IMPRES YOANDY: No acute pulmon sukhedep infilt rate or pleura l fluid collec tion. ====== ====== ====== ====== = PROCED URE INFORM ATION: Exam: CT Abdome n And Pelvis Withou t Contra st Exam date and time: 7:36 PM Age: 69 years old Mild lumbar dextro scolio sis. TECHNI QUE: Imagin g protoc ol: Comput ed tomogr aphy of the abdome n and pelvis withou t contra st. 3D render ing [...] ed and Authen ticate d by: Andrew downs MD. Orderi ng:P.B REMBERTO Castillo MD Access ion#=[id number] Ordere d By: CC: ------ ------ ------ ------ ------ ------ ------ ------ ------ ------ ------ ------ ---- Dictat ed By: Report s vrad 1935 Transc ribed By: Jeanine Merge 1935 This is privil eged, confid [...] the addres s above. Thank- you. crystal [facility] [address] [facility], [place], [address] 05/12/2024 08:01:30 05/09/20 24 2024 vrad repor t Patien t Name: Jossy Leyva Unit #: [id number] Loc: ER Orderi ng Provid er: Accoun t #: [id number] Status : REG ER Primar y [...] of osteom yeliti s. Dictat ed and Authen ticate d by: Andrew downs MD. Orderi ng:P.B REMBERTO Castillo MD Access ion#=[id number] Ordere d By: CC: ------ ------ ------ ------ ------ ------ ------ ------ ------ ------ ------ ------ ---- Dictat ed By: Report s vrad 1940 Transc ribed By: Jeanine Puga 1940 This is privil eged, confid ential [...] the addres s above. Thank- you. crystal [facility] [address] [place] [address] [place], [address] 05/12/2024 08:01:30 05/10/20 24 05/10/2024 CT imagi ng repor t Patien t Name: Jossy Leyva Unit #: [id number] Loc: ER Orderi ng Provid er: Timothy blake,Yelena avery PRASANNA Accoun t #: [id number] Status : DEP ER Primar [...] tion); or iterat charles recons tructi on. 725- 033: Total DLP = 0.00 mGy-cm Ordere d By: Yelena Henley CC: ------ [...] the addres s above. Thank- you. crystal [facility] [address] [facility] [place], [address] 05/12/2024 08:01:31 05/11/20 24 05/11/2024 CT imagi ng repor t Patien t Name: Jossy Leyva Unit #: [id number] Loc: ER Orderi ng Provid er: Yelena [place] Accoun t #: [id number] Status : DEP ER Primar y Care Provid er: Rishi onChanda Date of Exam: 07 /26/24 Sex: M : 1954 Age: 69 Exam(s [...] facili ty are submit sebastián to the [facility] al Radiol ogy Data Regist ry (NRDR) Dose Index Regist ry (DIR) with the [place] of Radiol [place]gy (ACR). RADIAT ION OPTIMI ZATION : All CT scans at this facili ty use at least one of these dose optimi zation techni ques: automa sebastián exposu re contro l; mA and/or kV adjust ment per patien t size (inclu ellyn target ed exams where dose is matche d to clinic al indica tion); or iterat charles recons tructi on 032: Total DLP = 0.00 mGy-cm Ordere d By: Timothy blake,Yelena MIMS CC: ------ ------ ------ ------ ------ ------ ------ ------ ------ ------ ------ ------ ---- Dictat ed By: Moiz Sotelo M.D. 912 Transc ribed By: Moiz Sotelo 912 This is privil eged, confid ential inform ation intend ed only for the provid er named. Any use or distri bution by any person other than this provid er is strict ly prohib ited. If you receiv e this report in error, please notify us immedi maurice at and return the origin al report to us at the addres s above. Thank- you. crystal [address] [place], [address] 05/12/2024 08:01:31 Result Notes None recorded. Problems Name Status Onset Date Resolution Date Notes Provider Name and Address Organization Details Recorded Time Chronic obstructive pulmonary disease Active 201912/14/2021 - Comments only - Pepe Bill RPA - lungs clear on exam. nonlabored. He stopped smoking greater than 10 years ago. Problem Code: J44.9; Problem Code Type: ICD-10; Not Available [facility] 3 05:06:14 Atrial fibrillation Active 201911/27/2022 - Comments only - Pepe Bill RPA - Continues to be rate controlled. Continues on Xarelto. We will check a CBC. Problem Code: I48.91; Problem Code Type: ICD-10; Not Available [facility] 3 05:06:14 Essential hypertension Active 201911/27/2022 - Comments only - Pepe Bill RPA - Well controlled on current medication management. Problem Code: I10; Problem Code Type: ICD-10; Not Available [facility] 3 05:06:14 Type 2 diabetes mellitus without [...] E11.9; Problem Code Type: ICD-10; Not Available [facility] 3 05:06:14 Heart failure Active 201911/27/2022 - Comments only - Pepe Bill RPA - Appears stable on current medication management. No significant changes in lower extremity edema. If anything a bit improved. He continues on carvedilol and furosemide. Encouraged more routine exercise. Problem Code: I50.9; Problem Code Type: ICD-10; Not Available [facility] 3 05:06:14 Peripheral vascular disease Active 2019 Problem Code: I73.9; Problem Code Type: ICD-10; Not Available [facility] 3 05:06:14 Screening for malignant neoplasm of prostate Active 201907/26/2020 - Comments only - Pepe Bill RPA - We will check a PSA Problem Code: Z12.5; Problem Code Type: ICD-10; Not Available [facility] 3 05:06:14 Dystrophia unguium Active 201909/06/2020 - Comments only - Pepe Bill RPA - Referral has been made to podiatry. He has not heard on this referral yet Problem Code: L60.3; Problem Code Type: ICD-10; Not Available [facility] 3 05:06:15 Pain in thoracic spine Active 201908/19/2020 - Comments only - Pepe Bill TRESA - herniated disk 1997. 2016 MRI with L5-S1 spinal stenosis - subsequent steroid injection and ablation. Problem Code: M54.9; Problem Code Type: ICD-10; Not Available [facility] 3 05:06:15 Edema Active 201912/14/2021 - Comments only - Pepe Bill RPA - improved from a year ago. He restricts sodium. Compliant with his cardiac meds. No evidence of cellulitis which has been a significant issue in past. Problem Code: R60.9; Problem Code Type: ICD-10; Not Available [facility] 3 05:06:15 Malaise Active 202101/11/2022 - Improved - Shaila Basim - He feels that he is getting [...] R53.81; Problem Code Type: ICD-10; Not Available [facility] 3 05:06:15 Tinnitus Active 202101/11/2022 - Comments [...] H93.19; Problem Code Type: ICD-10; Not Available [facility] 3 05:06:15 Carpal tunnel syndrome of right wrist Active 202212/21/2022 - Comments only - Pepe Bill RPA - confirmed on emg's Problem Code: G56.01; Problem Code Type: ICD-10; Not Available [facility] 3 05:06:15 Cellulitis Completed 201901/11/2022 Problem Code: L03.90; Problem Code Type: ICD-10; Not Available [facility] 3 05:06:37 Renal insufficiency Active [address], [place], [address] , [facility]. 11:54:52 Problem Notes None recorded. Procedures Surgical History None recorded. Imaging Results Imaging Date Name Status LastModified by Organiz ation Details LastModified Time 2024 x-ray imaging report completed crystal [address] [place], [address] 05/12/2024 08:01:30 2024 vrad report completed crystal [address] [place], [address] 05/12/2024 08:01:30 2024 vrad report completed [email or web address] [place], [address] 05/12/2024 08:01:30 05/10/2024 CT imaging report completed [email or web address], [address] 05/12/2024 08:01:31 05/11/2024 CT imaging report completed [id number], [address] 05/12/2024 08:01:31 Procedure Notes None recorded. Medical [...] pneumococcal, unspecified formulation 07/17/2020 completed Not Available [facility] 08/24/2023 05:17:59 Tdap 11/27/2022 completed Not Available [facility] 05:17:59 Influenza, high-dose, quadrivalent, PF 11/27/2022 completed Not Available [facility] 08/24/2023 05:18:00 COVID-19, mRNA, LNP-S, PF, 100 mcg/0.5mL dose or 50 mcg/0.25mL dose 12/10/2020 completed Not Available [facility] 08/24/2023 05:18:00 COVID-19, mRNA, LNP-S, PF, 100 mcg/0.5mL dose or 50 mcg/0.25mL dose 01/07/2021 completed Not Available [facility] 08/24/2023 05:18:00 COVID-19, mRNA, LNP-S, PF, 100 mcg/0.5mL dose or 50 mcg/0.25mL dose 03/15/2022 completed Not Available [facility] 08/24/2023 05:18:00 SARS-COV-2 (COVID-19) vaccine, UNSPECIFIED 09/17/2021 completed Not Available [facility] 08/24/2023 05:18:00 COVID-19, mRNA, LNP-S, bivalent, PF, 30 mcg/0.3 mL dose 11/27/2022 completed Not Available [facility] 08/24/20 05:18:00 pneumococcal polysaccharide PPV23 03/15/2022 completed Not Available [facility] 2022 05:18:00 influenza, unspecified formulation 07/17/2020 completed Not Available [facility] 08/24/2023 05:18:00 Past Encounters Encounter ID Performer Location Encounter Start Date Encounter Closed Date Diagnosis/Indication Diagnosis SNOMED-CT Code [id number] PEPE BILL PA-C [facility] [address] [place] [address] 05/27/2024 16:09:14 05/31/2024 04:05:12 [id number] PEPE BILL PA-C [facility] [place] [address] 05/30/2024 10:56:10 05/30/2024 12:20:08 Renal insufficiency [id number] Type 2 bridgette betes mellitus without complication [id number] Health Concerns Section Related Observation LastModified by Organization Detai ls LastModified Time None Recorded Concern Status LastModified by Organization Details LastModified Time None Recorded Advance Directives Directive None Recorded Payers Encounter Date Sequence Insurance Name Policy Number Policy White Covered Member ID White Member ID Guarantor Name 05/27/2024 1 *SELF PAY* Ted Hernandez 05/30/2024 1 *SELF PAY* Ted Hernandez Notes Date Note Type Note Provider Name and Address Organization Details Recorded Time 05/30/2024 text/html HPI Notes: Asim padgett s currently in rehab facility after suffering a leg injury with subsequent cellulitis and renal failure. He is slowly building his strength back up. Working with physical therapy. He wonders about his insulin supplies at home that are in the refrigerator. They are currently giving him Lantus at night and Humalog using sliding scale in rehab. Continues on antibiotic. He lost a lot of strength with the illness. Slowly building this back up. He is unable to get out of a chair on his own at this point. [address], [place], [address], [facility]. 05/30/2024 11:55:32
--- OUTSIDE RECORDS SUMMARY | 2024-06-03 20:35 | XMS_ITS | Continuity of Care Document ---
Author Organization [place] - [facility] Address [address] [place] [address] Assessment Encounter Date Assessment Date Assessment LastModified by Organization Details LastModified Time 05/30/2024 05/30/2024 The total time devoted to today's encounter, including both the mebm-uj-sbjr time with the patient and/or family/caregi rocio and dvj-qses-cr-f derek time I personally spent is 20 [...] LastModifiedBy Organization Detail LastModifiedTime 05/09/20 24 2024 x-ray imagi ng repor t Kisha t Name: Jossy Leyva Unit #: [id number] Loc: ER Orderi ng Provid er: Yelena Henley Accoun t #: [id number] Status : PRE ER Primar y Care Provid er: Rishi onChanda Date of Exam: Sex: M Admiss ion [...] DELIVE RED: Ordere d By: Yelena Henley PA CC: ------ ------ ------ ------ ------ ------ [...] the addres s above. Thank- you. [facility] [address] [place], [address] 05/12/2024 08:01:30 05/09/20 24 2024 vrad repor t Kisha t Name: Jossy Leyva Unit #: [id number] Loc: ER Orderi ng Provid er: Accoun t #: [id number] Status : REG ER Primar y [...] to clinic al indica tion); or iterat cameron recons tructi on. COMPAR TABITHA: CR XR [...] zation : [facility] use at least one of these dose optimi zation techni ques: automa sebastián exposu re contro l; mA and/or kV adjust ment per patien t size (inclu ellyn target ed exams where dose is matche d to clinic al indica tion); or iterat cameron recons tructi on. COMPAR TABITHA: US RENAL [...] Orderi ng:P.B REMBERTO Castillo MD Access ion#=[id number] Ordere d By: CC: ------ ------ ------ ------ ------ ------ ------ ------ ------ ------ ------ ------ ---- Dictat ed By: Report s vrad 1935 Transc ribed By: Jeanine Puga 1935 This is privil eged, confid ential inform ation intend ed only for the provid er named. Any use or distri bution by any person other than this provid er is strict ly prohib ited. If you receiv e this report in error, please notify us immedi camily at and return the origin al report to us at the addres s above. Thank- you. [facility] [address] [place], [address] 05/12/2024 08:01:30 05/09/2005/09/2024 vrad repor t Patien t Name: Jossy Leyva Unit #: [id number] Loc: ER Orderi ng Provid er: Accoun t #: [id number] Status : REG ER Primar y Care Provid er: Chanda Walker Date of Exam: Sex: M : 1954 [...] zation : [facility] use at least one of these dose optimi zation techni ques: automa sebastián exposu re contro l; mA and/or kV adjust ment per patien t size (inclu ellyn target ed exams where dose is matche d to clinic al indica tion); or iterat cameron recons tructi on. COMPAR TABITHA: US EXTREM [...] of osteom yeliti s. Dictat ed and Authjose smileyate d by: Andrew downs MD. Orderi ng:PBerlin Castillo MD Access ion#=[id number] Ordere d By: CC: ------ ------ ------ ------ ------ ------ ------ ------ ------ ------ ------ ------ ---- Dictat ed By: Report s vrad 1940 Transc ribed By: Jeanine Merge 1940 This is privil eged, confid ential inform ation intend ed only for the provid er named. Any use or distri bution by any person other than this provid er is strict ly prohib ited. If you receiv e this report in error, please notify us immedi ately at [phone] and return the origin al report to us at the addres s above. Thank- you. [facility] [address] [place], [address] 05/12/2024 08:01:30 05/10/2005/10/2024 CT imagi ng repor t Kisha santiago Name: Jossy Leyva Unit #: [id number] Loc: ER Orderi ng Provid er: Yelena Henley PRASANNA Accbud t #: [id number] Status : DEP ER Primar y Care Provid er: Chanda Walker Date of Exam: Sex: M : 1954 [...] Regist ry (DIR) with the [employer] (ACR). RADIAT ION OPTIMI ZATION : All CT scans at this facili ty use at least one of these dose optimi zation techni ques: automa sebastián exposu re contro l; mA and/or kV adjust ment per patien t size (inclu ellyn target ed exams where dose is matche d to clinic al indica tion); or iterat cameron recons tructi on. 033: Total DLP = [...] the addres s above. Thank- you. [facility] [address] [place], [address] 05/12/2024 08:01:31 05/11/20 24 05/11/2024 CT imagi ng repor t Patien t Name: Jossy Leyva Unit #: [id number] Loc: ER Orderi ng Provid er: Yelena Henley Accoun t #: [id number] Status : DEP ER Primar y Care Provid er: Rishi hallChanda Date of Exam: Sex: M : 1954 [...] facili ty are submit sebastián to the [facility] al Radiol ogy Data Regist ry (NRDR) [...] to clinic al indica tion); or iterat cameron recons tructi on. 032: Total DLP = 0.00 mGy-cm Ordere d By: Timothy blake,Yelena MIMS CC: ------ ------ ------ ------ ------ ------ ------ ------ ------ ------ ------ ------ ---- Dictat ed By: Moiz Sotelo M.D. [id number] [id number] Transc ribed By: Moiz Sotelo 912 [...] the addres s above. Thank- you. [facility] [address] [place], [address] 05/12/2024 08:01:31 Result Notes None recorded. Problems Name Status Onset Date Resolution Date Notes Provider Name and Address Organization Details Recorded Time Chronic obstructive pulmonary disease Active 201912/14/2021 - Comments only - Pepe Bill RPA - lungs clear on exam. nonlabored. He stopped smoking greater than 10 years ago. Problem Code: J44.9; Problem Code Type: ICD-10; Not Available [facility] 3 05:06:14 Atrial fibrillation Active 201911/27/2022 - Comments only - Pepe Bill RPA - Continues to be rate controlled. Continues on Xarelto. We will check a CBC. Problem Code: I48.91; Problem Code Type: ICD-10; Not Available [facility] 3 05:06:14 Essential hypertension Active 201911/27/2022 - Comments only - Pepe Bill RPA - Well controlled on current medication management. Problem Code: I10; Problem Code Type: ICD-10; Not Available [facility] 3 05:06:14 Type 2 diabetes mellitus without [...] Problem Code Type: ICD-10; Not Available [facility] 3 05:06:14 Heart failure Active 201911/27/2022 - Comments only - Pepe Bill RPA - Appears stable on current medication management. No significant changes in lower extremity edema. If anything a bit improved. He continues on carvedilol and furosemide. Encouraged more routine exercise. Problem Code: I50.9; Problem Code Type: ICD-10; Not Available [facility] 3 05:06:14 Peripheral vascular disease Active 2019 Problem Code: I73.9; Problem Code Type: ICD-10; Not Available [facility] 3 05:06:14 Screening for malignant neoplasm of prostate Active 201907/26/2020 - Comments only - Pepe Bill RPA - We will check a PSA Problem Code: Z12.5; Problem Code Type: ICD-10; Not Available [facility] 3 05:06:14 Dystrophia unguium Active 201909/06/2020 - Comments only - Pepe Bill RPA - Referral has been made to podiatry. He has not heard on this referral yet Problem Code: L60.3; Problem Code Type: ICD-10; Not Available [facility] 3 05:06:15 Pain in thoracic spine Active 201908/19/2020 - Comments only - Pepe Bill RPA - herniated disk 1998. 2017 MRI with L5-S1 spinal stenosis - subsequent steroid injection and ablation. Problem Code: M54.9; Problem Code Type: ICD-10; Not Available [facility] 3 05:06:15 Edema Active 201912/14/2021 - Comments only - Pepe Bill RPA - improved from a year ago. He restricts sodium. Compliant with his cardiac meds. No evidence of cellulitis which has been a significant issue in past. Problem Code: R60.9; Problem Code Type: ICD-10; Not Available [facility] 3 05:06:15 Malaise Active 202101/11/2022 - Improved [...] Problem Code Type: ICD-10; Not Available [facility] 3 05:06:15 Tinnitus Active 202101/11/2022 - Comments [...] Problem Code Type: ICD-10; Not Available [facility] 3 05:06:15 Carpal tunnel syndrome of right wrist Active 202212/21/2022 - Comments only - Pepe Bill [facility] - confirmed on emg's Problem Code: G56.01; Problem Code Type: ICD-10; Not Available [facility] 3 05:06:15 Cellulitis Completed 201901/11/2022 Problem Code: L03.90; Problem Code Type: ICD-10; Not Available [facility] 3 05:06:37 Renal insufficiency Active 2023 PEPE BILL PA-C [facility] [address] [place], [address] , [facility] 4 11:54:52 Problem Notes None recorded. Medical Equipment None Reported. [...] 2nd Gen Pen Needle 32 gauge x /32 USE 1 NEEDLE UNDER THE SKIN FOUR [...] unspecified formulation 07/17/2020 completed Not Available [facility] 08/24/2023 05:17:59 Tdap 11/27/2022 completed Not Available [facility] 05:17:59 Influenza, high-dose, quadrivalent, PF 11/27/2022 completed Not Available [facility] 08/24/2023 05:18:00 COVID-19, mRNA, LNP-S, PF, 100 mcg/0.5mL dose or 50 mcg/0.25mL dose 12/10/2020 completed Not Available [facility] 08/24/2023 05:18:00 COVID-19, mRNA, LNP-S, PF, 100 mcg/0.5mL dose or 50 mcg/0.25mL dose 01/07/2021 completed Not Available [facility] 08/24/2023 05:18:00 COVID-19, mRNA, LNP-S, PF, 100 mcg/0.5mL dose or 50 mcg/0.25mL dose 03/15/2022 completed Not Available [facility] 08/24/2023 05:18:00 SARS-COV-2 (COVID-19) vaccine, UNSPECIFIED 09/17/2021 completed Not Available [facility] 08/24/2023 05:18:00 COVID-19, mRNA, LNP-S, bivalent, PF, 30 mcg/0.3 mL dose 11/27/2022 completed Not Available [facility] 08/24/20 05:18:00 pneumococcal polysaccharide PPV23 03/15/2022 completed Not Available [facility] 2022 05:18:00 influenza, unspecified formulation 07/17/2020 completed Not Available [facility] 08/24/2023 05:18:00 Past Encounters Encounter ID Performer Location Encounter Start Date Encounter Closed Date Diagnosis/Indication Diagnosis SNOMED-CT Code [id number] PEPE BILL PA-C [facility] [address] [place] [address] 05/27/2024 16:09:14 05/31/2024 04:05:12 [id number] PEPE BILL PA-C [facility] [address] [place] [address] 05/30/2024 10:56:10 05/30/2024 12:20:08 Renal insufficiency [id number] Type 2 bridgette betes mellitus without complication [id number] Health Concerns Section Related Observation LastModified by Organization Detai ls LastModified Time None Recorded Concern Status LastModified by Organization Details LastModified Time None Recorded Payers Encounter Date Sequence Insurance Name Policy Number Policy White Covered Member ID White Member ID Guarantor Name 05/30/2024 1 *SELF PAY* Ted Hernandez Notes [...] chair on his own at this point. PEPE BILL PA-C [address], [place], [address], [facility]. 05/30/2024 11:55:32
--- OUTSIDE RECORDS SUMMARY | 2024-06-03 20:35 | XMS_ITS | Clinical Summary ---
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 05/26/2024 Telephone [place] [address] Marina Mason RN 05/22/2024 4:33 PM EDT Anesthesia Event [place] [address] Soledad Doyle MD Pouliot, Ryan C, MD 05/22/2024 1:00 PM EDT - 05/22/2024 1:30 PM EDT Surgery [place] [address] Jonn Mena MD EGD, UPPER GI ENDOSCOPY (WRVU 2.09) 05/21/2024 Travel 05/14/2024 10:37 AM EDT Anesthesia Event Main Operating Room [place] [address] Gertrudis Kimball MD Godbout, Jennifer M, MD 05/14/2024 10:00 AM EDT - 05/14/2024 11:24 AM EDT Surgery [place] [address] Elkin Garcia MD AMPUTATION, TRANSMETATARSAL TOE, ONE TOE (WRVU 6.64) 05/10/2024 2:12 AM EDT - 05/23/2024 4:14 PM EDT Hospital Encounter Surgical Unit Level 4 [place] [address] Arely Dickson MD Saunders, Richard K, MD Singh, Gurbakhshish, MD Swenson, Beverly Goodson MD Septic shock; Altered tissue perfusion; Osteomyelitis of second toe of right foot; Stage 4 chronic kidney disease Discharge Disposition: Penitentiary Facility 2024 9:25 PM EDT Ancillary Procedure Radiology Library at [place] [id number] Arely Dickson MD 2024 9:20 PM EDT Ancillary Procedure [facility] at [place] [id number] Arely Dickson MD from Last 3 Months Social History Tobacco Use Types Packs/Day Years Used Date Smoking Tobacco: Former Cigarettes 14 0.6 S tarted: 2023 Smokeless Tobacco: Never Tobacco Cessation:Counseling Given: Not Answered Alcohol Use Standard Drinks/Week Comments Yes 0 (1 standard drink = 0.6 oz pur e alcohol) 3-4 PER [facility] Inpatient Questions Answer Date Recorded Does Anyone [...] 10:30 AM EDT Office [place] [address] Elkin Garcia MD [facility] [place] [address] Health Maintenance Due Date Last Done Comments [...] history exists Medical Devices Implanted Type Area Clinical Editor Device Identifier Shelf Expiration Date Model / Serial / Lot Clip [id number] Endoscopic Ligation Resolution 360 Each ([id number]) - [id number] Implanted:Qty: 1 on 05/22/2024 by Jonn Mena MD at [facility] IMPLANTS [employer] - [address] [address] [employer]TE [address]122 / / Procedures Procedure Name [...] EDT Upper Gi Endoscopy, W/Dir Submuc Inj (58569) 05/22/2024 4:39 PM EDT ? melena Upper Gi Endoscopy, Ctrl Bleed (03411) 05/22/2024 4:39 PM EDT ? melena Upper GI Endoscopy, Diagnostic (41279) 05/22/2024 4:39 PM EDT ? melena UPPER [...] 05/14/2024 11:32 AM EDT Amputation Metatarsal+Toe, Single (66880) 05/14/2024 10:37 AM EDT right second toe [...] of40 resultswithin the time period is included. [facility] Signature Glucometer, POC 137 65 - 199 mg/dL 05/23/2024 12:32 PM EDT [facility] Comment:Supplemental ranges: <140 mg/dL before meals <180 mg/dL all other times of the day. Blood CAPILLARY BLOOD / Unknown 05/23/2024 12:32 PM EDT 05/23/2024 12:32 PM EDT Beverly Spears MD POINT OF CARE TEST ORDERABLES [facility] [place] [address] * (ABNORMAL) CBC (with Diff) (05/23/2024 9:46 AM EDT) Only the most recent of8 resultswithin the time period is included. White Blood Cell 12.66(H) 4.00 - 9.50 x10(3)/mc L 05/23/2024 10:[facility] Red Blood Cell 2.56(L) 4.58 - 5.54 x10(6)/mc L 05/23/2024 10:52 AM [facility] Hemoglobin 7.7(L) 13.7 - 16.5 g/dL 05/23/2024 10:52 AM [facility] Hematocrit 24.3(L) 40.5 - 48.5 % 05/23/2024 10:52 AM [facility] Mean Cell Volume 94.9(H) 82.9 - 93.1 fL 05/23/2024 10:52 [facility] Mean Cell Hemoglobin 30.1 [...] - 6.10 x10(3)/mc L 05/23/2024 10:52 AM [facility] Lymph % 5.1 % 05/23/2024 10:52 AM [facility] Lymph Absolute 0.64(L) 0.90 - 3.20 x10(3)/mc L 05/23/2024 10:52 AM [facility] Monocyte % 10.7 % 05/23/2024 10:52 AM [facility] Monocyte Absolute 1.35(H) 0.30 - 0.90 x10(3)/mc L 05/23/2024 10:52 AM [facility] Eos % 1.7 % 05/23/2024 10:52 AM [facility] Eos Absolute 0.22 0.00 - 0.40 x10(3)/mc L 05/23/2024 10:52 AM [facility] Basophil % 0.3 % 05/23/2024 10:52 AM [facility] Baso Absolute 0.04 0.00 - 0.10 x10(3)/mc L 05/23/2024 10:52 AM EDT [facility] Immature Gran % 0.6 % 10:52 AM [facility] Immature Gran Absolute 0.07(H) 0.00 - 0.04 x10(3)/mc L 05/23/2024 10:52 AM [facility] Blood VENOUS BLOOD SPECIMEN / Unknown IP Care Team Draw / Unknown 05/23/2024 9:46 AM EDT 05/23/2024 10:01 AM EDT Beverly Spears MD HEMATOLOGY ORDERABL ES [facility] [place] [address] * (ABNORMAL) Basic Metabolic Panel (05/23/2024 9:46 AM EDT) Only the most recent of17 resultswithin the time period is included. Glucose 142 65 - 199 mg/dL 05/23/2024 11:27 AM [facility] Comment:Glucose Concentratio n >=200 mg/dL plus symptoms is consistent with Diabetes Mellitus. Blood Urea Nitrogen 83(H) 10 - 20 mg/dL 05/23/2024 11:27 AM [facility] Creatinine 2.64(H) 0.80 - 1.50 mg/dL 05/23/2024 11:27 AM [facility] Sodium 140 135 - 145 mMol/L 05/23/2024 11:27 AM [facility] Potassium 5.2(H) 3.5 - 5.0 mMol/L 05/23/2024 11:27 AM [facility] Chloride 111(H) 98 - 107 mMol/L 05/23/2024 11:27 AM [facility] Carbon Dioxide 20(L) 22 - 31 mMol/L 05/23/2024 11:27 AM [facility] Anion Gap 9 5 - 15 mMol/L 05/23/2024 11:27 AM [facility] Calcium 9.3 8.5 - 10.5 mg/dL 05/23/2024 11:27 AM EDT [facility] Est Glomerular Filtration Rate - Male 25 mL/min/1. 73 m?? 05/23/2024 11:27 AM EDT [facility] Comment: This patient's estimated GFR [...] EDT Beverly Spears MD CHEMISTRY ORDERABLE S [facility] [place] [address] * Prepare RBC (05/23/2024 3:49 AM EDT) Status Information Transfused [facility] Product Identification RBC [facility] Unit Number [id number] [facility] Product Code [id number] [facility] Unit Blood Type OPOS [facility] Specimen Expiration Date [id number] [facility] Volulme 350 [facility] Issue Date / Time [id number] [facility] Blood 05/22/2024 12: 42 PM EDT Beverly Spears MD BLOOD BANK PRODUCT ORDERABLES [facility] [place] [place] [address] * (ABNORMAL) Scan, Peripheral Blood (05/23/2024 1:19 AM EDT) RBC Morphology Abnormal 05/23/2024 3:44 AM EDT [facility] Platelet Estimate Increased(A) Normal 05/23/2024 3:44 AM EDT [facility] Ovalocytes 1-5 /HPF 05/23/2024 3:44 AM EDT [facility] Catlett cells 1-5 /HPF 05/23/2024 3:44 AM EDT [facility] Blood VENOUS BLOOD SPECIMEN / Unknown IP Care Team Draw / Unknown 05/23/2024 1:19 AM EDT 05/23/2024 2:05 AM EDT Julius Cook MD HEMATOLOGY ORDERAB LES [facility] [place] [address] * (ABNORMAL) Phosphorus (05/23/2024 1:19 AM EDT) Only the most recent of15 resultswithin the time period is included. Pathologist [facility] Phosphorus 5.8(H) 2.5 - 4.5 mg/dL 05/23/2024 2:40 AM EDT [facility] Blood VENOUS BLOOD SPECIMEN / Unknown IP Care Team Draw / Unknown 05/23/2024 1:19 AM EDT 05/23/2024 2:05 AM EDT Julius Cook MD CHEMISTRY ORDERABL ES Performing Organization Address City/[facility]/ZIP Co de Phone Number [facility] [place] [address] * Magnesium (05/23/2024 1:19 AM EDT) Only the most recent of14 resultswithin the time period is included. Magnesium 0.86 0.69 - 1.07 mMol/L 05/23/2024 2:40 AM EDT [facility] Blood VENOUS BLOOD SPECIMEN / Unknown IP Care Team Draw / Unknown 05/23/2024 1:19 AM EDT 05/23/2024 2:05 AM EDT Julius Cook MD CHEMISTRY ORDERABL ES Performing Organization Address [facility]/State/ZIP Co de Phone Number [facility] [place] [address] * Transfuse RBC (05/22/2024 2:45 PM EDT) Beverly Spears MD NURSING TREATMENT O RDERABLES - BLOOD ADMIN * UPPER GI ENDOSCOPY (05/22/2024 12:48 PM EDT) UPPER GI ENDOSCOPY [facility] ___ Procedure Date: 05/22/2024 12:48 PM ? Patient Name: Ave Kolb ? N: [id number] ? Date of : 1955 ? Age: 69 ? Order #: [id number] ? Instrument Name: [id number]- [id number]- [id number] ? ___ Procedure: ? Upper GI endoscopy [...] HISTORY FOUND) (05/22/2024 11:18 AM EDT) Pathologist [facility] ABORH Recheck Progress Complete 05/22/2024 1:01 PM EDT [facility] Blood VENOUS BLOOD SPECIMEN / Unknown IP Care Team Draw / Unknown 05/22/2024 11:18 AM EDT 05/22/2024 11:27 AM EDT Beverly Spears MD BLOOD BANK LAB FADY GAO [facility] [place] [address] * (ABNORMAL) Hemoglobin and Hematocrit, blood (05/22/2024 11:18 AM EDT) Hemoglobin 6.9(L) 13.7 - 16.5 g/dL 05/22/2024 12:02 PM EDT [facility] Hematocrit 21.4(L) 40.5 - 48.5 % 05/22/2024 12:02 PM EDT [facility] Blood VENOUS BLOOD SPECIMEN / Unknown IP Care Team Draw / Unknown 05/22/2024 11:18 AM EDT 05/22/2024 11:36 AM EDT Beverly Spears MD HEMATOLOGY ORDERABL ES [facility] [place] [address] * Type and screen ([facility]/CGP/TARA) (05/22/2024 11:18 AM EDT) Only the most recent of2 resultswithin the time period is included. ABOR Type O POSITIVE 05/22/2024 12:31 PM EDT [facility] PATIENT HISTORY Found 05/22/2024 12:31 PM EDT [facility] Expires at [id number] on: 05-22-2024 05/22/2024 12:31 PM EDT [facility] ANTIBODY SCREEN AUTOMATED Negative 05/22/2024 12:31 PM EDT [facility] T&S only valid at [facility] 05/22/2024 12:31 PM EDT [facility] Blood VENOUS BLOOD SPECIMEN / Unknown IP Care Team Draw / Unknown 05/22/2024 11:18 AM EDT 05/22/2024 11:27 AM EDT Narrative [facility] - 05/22/2024 12:31 PM EDT This Type and Screen result is only valid at the [facility] Beverly Spears MD BLOOD BANK LAB ORDE RABLES Performing Organization Address City/[facility]/ZIP Co de Phone Number [facility] [place] [place] [address] * (ABNORMAL) Hepatic Function Panel (05/22/2024 5:18 AM EDT) Only the most recent of2 resultswithin the time period is included. Pathologist [facility] Albumin 2.6(L) 3.2 - 5.2 g/dL 05/22/2024 9:50 AM EDT [facility] Aspartate Aminotransferase 18 <=39 unit/L 05/22/2024 9:50 AM EDT [facility] Alanine Aminotransferase 42 0 - 55 unit/L 05/22/2024 9:50 AM EDT [facility] Alkaline Phosphatase 84 40 - 130 unit/L 05/22/2024 9:50 AM EDT [facility] Bilirubin, Total <0.2 <=1.3 mg/dL 05/22/2024 9:50 AM EDT [facility] Bilirubin, Direct <0.2 0.0 - 0.3 mg/dL 05/22/2024 9:50 AM EDT [facility] Protein, Total 6.0(L) 6.1 - 8.0 g/dL 05/22/2024 9:50 AM EDT [facility] Blood VENOUS BLOOD SPECIMEN / Unknown IP Care Team Draw / Unknown 05/22/2024 5:18 AM EDT 05/22/2024 5:45 AM EDT Beverly Spears MD CHEMISTRY ORDERABLE S [facility] [place] [address] * (ABNORMAL) Hemogram (05/21/2024 3:00 PM EDT) Only the most recent of10 resultswithin the time period is included. White Blood Cell 14.25(H) 4.00 - 9.50 x10(3)/mc L 05/21/2024 3:41 PM EDT [facility] Red Blood Cell 2.61(L) 4.58 - 5.54 x10(6)/mc L 05/21/2024 3:41 PM EDT [facility] Hemoglobin 7.8(L) 13.7 - 16.5 g/dL 05/21/2024 3:41 PM EDT [facility] Hematocrit 24.5(L) 40.5 - 48.5 % 05/21/2024 3:41 PM EDT [facility] Mean Cell Volume 93.9(H) 82.9 - 93.1 fL 05/21/2024 3:41 PM EDT [facility] Mean Cell Hemoglobin 29.9 27.5 - 32.1 pg 05/21/2024 3:41 PM EDT [facility] Mean Cell Hemoglobin Concentration 31.8(L) 32.0 - 35.7 g/dL 05/21/2024 3:41 PM EDT [facility] Platelet 456(H) 145 - 357 x10(3)/mc L 05/21/2024 3:41 PM EDT [facility] Mean Platelet Volume 11.1 7.6 - 12.9 fL 05/21/2024 3:41 PM EDT [facility] RDW Standard Deviation 55.2(H) 36.0 - 45.0 fL 05/21/2024 3:41 PM EDT [facility] RDW coefficient of variation 16.1(H) 11.4 - 13.8 % 05/21/2024 3:41 PM EDT [facility] NRBC% auto 0.0 % 05/21/2024 3:41 PM EDT [facility] NRBC Absolute 0.00 0.00 - 0.00 x10(3)/mc L 05/21/2024 3:41 PM EDT [facility] Blood VENOUS BLOOD SPECIMEN / Unknown IP Care Team Draw / Unknown 05/21/2024 3:00 PM EDT 05/21/2024 3:36 PM EDT Beverly Spears MD HEMATOLOGY ORDERABL ES [facility] [place] [address] * IR Tunneled Central Venous Access Non-Dialysis (05/21/2024 12:11 PM EDT) Anatomical Region Laterality Modality Chest, Vascular X-Ray Angiograph y Narrative 05/21/2024 5:12 PM EDT Table formatting from the original result was not included. Images from the original result were not included. IR PROCEDURE NOTE Procedure: Tunneled central venous catheter placement. Indication for Procedure: Per Ave Saldana Allyssa Kolb is a 69 y.o. male [...] guidance and a 4Fr sheath placed. ??[address] injection compatible single lumen catheter was [...] 14.1(H) <=4.9 mg/L 05/21/2024 10:05 AM EDT [facility] Blood VENOUS BLOOD SPECIMEN / Unknown IP Care Team Draw / Unknown 05/21/2024 4:58 AM EDT 05/21/2024 5:17 AM EDT Beverly Spears MD CHEMISTRY ORDERABLE S Performing Organization Address City/State/[facility] Co de Phone Number [facility] [place] [address] * US Retroperitoneal Complete (05/20/2024 10:36 AM EDT) WORKSTATION ID [id number] [facility] Anatomical Region Laterality Modality Abdomen Ultrasound 05/20/2024 [...] AM Electronically signed by: Teofilo Ruiz MD, [facility] ([phone]), at 05/20/2024 11:30 AM Thank you for letting us participate in the care of this patient. If you are a health care provider and have any questions regarding this report, please contact the number above. For patients who have questions, please contact the health primary care physician that requested your imaging first. ?Teofilo Ruiz, Staff Physician Electronically Signed Final Report ?? 05/20/2024 11:36 am Narrative 05/20/2024 11:37 AM EDT Renal ? (Signed Final 05/20/2024 11:36 am) PATIENT INFO: ID #: ? [id number] ?: ??[birth year] (69 yrs)(Jennifer) Name: ? AVE KOLB ? Visit Date: 05/20/2024 10:34 am PERFORMED BY: Attending: ?Joseph SOTOMAYOR, Teofilo Flores Resident: ? Kuldeep SOTOMAYOR, Trinidad Kyle Performed By: ? Lulu Shin RDMS Referred By: ?BEVERLY SPEARS Location: ? [place] SERVICE(S) PROVIDED: URETRO - Retroperitoneal Complete - [id number] ? [id number] INDICATIONS: CKD, increase BUN TECHNIQUE/SCAN QUALITY: Scan [...] 05/20/2024 11:36 am) PATIENT INFO: ID #: [id number] : [birth year] (69 yrs)(M) Name: AVE KOLB Visit Date: 05/20/2024 10:34 am PERFORMED BY: Attending: Teofilo Ruiz MD Resident: Trinidad Light MD Performed By: Lulu Shin RDMS Referred By: BEVERLY SPEARS Location: [place] SERVICE(S) PROVIDED: URETRO - Retroperitoneal Complete - [id number] INDICATIONS: CKD, increase BUN TECHNIQUE/SCAN QUALITY: Scan [...] AM Electronically signed by: Teofilo Ruiz MD, [facility] ([phone]), at 05/20/2024 11:30 AM Thank you for letting us participate in the care of this patient. If you are a health care provider and have any questions regarding this report, please contact the number above. For patients who have questions, please contact the health primary care physician that requested your imaging first. Teofilo Ruiz, Staff Physician Electronically Signed Final Report 05/20/2024 11:36 am Beverly Spears MD IMG US GEN ORDERABL ES * PTH (05/19/2024 5:09 PM EDT) Parathyroid Hormone 27 15 - 65 pg/mL 05/19/2024 6:15 PM EDT [facility] Blood VENOUS BLOOD SPECIMEN / Unknown IP Care Team Draw / Unknown 05/19/2024 5:09 PM EDT 05/19/2024 5:43 PM EDT Beverly Spears MD CHEMISTRY ORDERABLE S [facility] [place] [address] * (ABNORMAL) Iron and TIBC (05/19/2024 5:09 PM EDT) Iron 58 45 - 160 mcg/dL 05/19/2024 6:56 PM EDT [facility] Unsaturated Iron Binding Capacity 143 110 - 370 mcg/dL 05/19/2024 6:56 PM EDT [facility] TIBC 201(L) 250 - 450 mcg/dL 05/19/2024 6:56 PM EDT [facility] Iron Saturation 29 20 - 50 % 6:56 PM EDT [facility] Blood VENOUS BLOOD SPECIMEN / Unknown IP Care Team Draw / Unknown 05/19/2024 5:09 PM EDT 05/19/2024 5:43 PM EDT Beverly Spears MD CHEMISTRY ORDERABLE S Performing Organization Address City/[facility]/ZIP Co de Phone Number [facility] [place] [address] * Ferritin (05/19/2024 5:08 PM EDT) Ferritin 191 31 - 409 ng/ml 05/19/2024 6:24 PM EDT [facility] Blood VENOUS BLOOD SPECIMEN / Unknown IP Care Team Draw / Unknown 05/19/2024 5:08 PM EDT 05/19/2024 5:43 PM EDT Beverly Spears MD CHEMISTRY ORDERABLE S Performing Organization Address [facility] Co de Phone Number [facility] [place] [address] * C diff Screen (05/18/2024 11:31 AM EDT) C Diff Interp Negative Negative 05/18/2024 3:02 PM EDT [facility] Comment:Clostridioides diffi cile is not present in the specimen. If patient is having diarrhea suspected to be from an infectious cause, then Soap & Water Contact Precautions are still required. If patient is having diarrhea with no suspected infectious cause use standard precautions. C Diff PCR Negative Negative, Indeterminate 05/18/2024 3:02 PM EDT [facility] Stool STOOL SPECIMEN / Unknown Non Blood Collection / Unknown 05/18/2024 11:31 AM EDT 05/18/2024 12:09 PM EDT Beverly Spears MD MICROBIOLOGY - GENE RAL ORDERABLES [facility] [place] [address] * C Diff PCR (05/18/2024 11:31 AM EDT) Stool STOOL SPECIMEN / Unknown Non Blood Collection / Unknown 05/18/2024 11:31 AM EDT 05/18/2024 12:09 PM EDT Beverly Spears MD MICROBIOLOGY - GENE RAL ORDERABLES Performing Organization Address City/[facility]/ZIP Co de Phone Number [facility] [place] [address] * Electrolytes, urine, random (05/18/2024 8:57 AM EDT) Sodium, Urine 50 mMol/L 05/18/2024 12:09 PM EDT [facility] Potassium, Urine 13 mMol/L 05/18/2024 12:09 PM EDT [facility] Chloride, Urine 35 mMol/L 05/18/2024 12:09 PM EDT [facility] Urine URINE SPECIMEN / Unknown Non Blood Collection / Unknown 05/18/2024 8:57 AM EDT 05/18/2024 9:07 AM EDT Beverly Spears MD URINE ORDERABLES Performing Organization Address [facility] Co de Phone Number [facility] [place] [address] * Creatinine, urine, random (05/18/2024 8:57 AM EDT) Only the most recent of2 resultswithin the time period is included. Creatinine, Urine 44 mg/dL 05/18/2024 9:36 AM EDT [facility] Urine URINE SPECIMEN / Unknown Non Blood Collection / Unknown 05/18/2024 8:57 AM EDT 05/18/2024 9:07 AM EDT Beverly Spears MD URINE ORDERABLES Performing Organization Address City/[facility]/ZIP Co de Phone Number [facility] [place] [address] * Vancomycin Level, Random (05/17/2024 5:49 AM EDT) Only the most recent of8 resultswithin the time period is included. Vancomycin, Random 22.4 mg/L 2023 6:58 AM EDT [facility] Comment:This level is for de termination of the patient's vancomycin huao-vobkg-kyb-curve (AUC) value. Contact the inpatient pharmacy for interpretation. Blood IP Care Team w / Nick 05/17/2024 5:49 AM EDT 05/17/2024 6:13 AM EDT Treva Diaz MD CHEMISTRY ORDERABL ES Performing Organization Address [facility] Co de Phone Number [facility] [place] [address] * POCT Glucose (05/16/2024 11:46 PM EDT) Only the most recent of38 resultswithin the time period is included. [facility] Glucose, POC 148 65 - 199 mg/dL [facility] Comment: Supplemental ranges: <140 mg/dL before meals <180 mg/dL all other times of the day Blood 05/16/2024 11:4 6 PM EDT 05/16/2024 11:46 PM EDT Treva Diaz MD POINT OF CARE TEST ORDERABLES Performing Organization Address [facility]/ZIP Co de Phone Number [facility] [place] [address] * (ABNORMAL) Differential, Automated (05/16/2024 5:14 AM EDT) Only the most recent of7 resultswithin the time period is included. Neutrophil % 79.4 % [facility] Neutrophil Absolute 9.22(H) 1.70 - 6.10 x10(3)/mc L [facility] Lymph % 6.6 % [facility] Lymphocytes Abs 0.8(L) 0.9 - 3.2 x10(3)/mc L [facility] Monocyte % 9.5 % [facility] Monocyte Abs 1.1(H) 0.3 - 0.9 x10(3)/mc L [facility] Eos % 0.0 % [facility] Eosinophils Abs 0.0 0.0 - 0.4 x10(3)/mc L [facility] Basophil % 0.2 % [facility] Baso Absolute 0.0 0.0 - 0.1 x10(3)/ L [facility] Immature Gran % 4.30 % [facility] Comment: Immature granulocytes(IG's)percentage and absolute count will include metamyelocytes, myelocytes, and promyelocytes. Blood smears from CBCs yielding IG's will be scanned manually for concordance. If this scan disagrees with the automated IG or if promyelocytes are noted, a manual differential will be performed. Immature Gran Absolute 0.50(H) 0.00 - 0.04 x10(3)/ L [facility] Blood 05/16/2024 5:14 AM EDT 05/16/2024 5:38 AM EDT Narrative Resulting Agency Comment Spec In Lab Carlotta Davis MD HEMATOLOGY OR DERABLES Performing Organization Address City/State/[facility] Co de Phone Number [facility] [place] [address] * MRSA PCR Screen ([facility]/CGP/APD/NLH) (05/15/2024 4:15 PM EDT) MRSA PCR Negative Negative [facility] MRSA (Interp) Methicillin-resist ant Staphylococcus aureus (MRSA) is NOT DETECTED The MRSA target DNA sequences (mec and SCC) were not detected within the acceptable ranges using the Xpert MRSA NxG on the GeneXpert Dx System ([employer]). This suggests the absence of MRSA in the patient specimen submitted for testing. This test is cleared by the U.S. Food and Drug Administration for clinical use and its performance characteristics have been verified by the [facility] at [facility]. This result does not rule out the presence of any other organisms. Rare false negative results may occur if MRSA is present at low concentrations with much higher concentrations of other organisms including MRSE or S. aureus with an empty SCC cassette. [facility] Comment: [VERIFIED DATE]05.15.24 Verified By:Lupe Jensen (Electronic Signature) Nasopharyngeal Swab 05/15/20 4:15 PM EDT 05/15/2024 6:28 PM EDT Comment:Specimen Type->Nasop haryngeal Swab Narrative Resulting Agency Comment Spec In Lab Treva Diaz MD MOLECULAR ORDERABL ES Performing Organization Address [facility]/[place] [address] * Scan Doc: Telemetry Strips (05/14/2024 12:47 PM EDT) Narrative 05/14/2024 12:47 PM EDT Ordered by an unspecified provider. Scanning Provider MEDIA MGR SCAN EXT O RDR/RSLT * Anaerobic Culture (05/14/2024 11:33 AM EDT) Anaerobic Culture No anaerobic organisms isolated [facility] Toe 05/14/2024 11:3 3 AM EDT 05/14/2024 12:33 PM EDT Comment:PROXIMAL RIGHT 2ND T OE Narrative Resulting Agency Comment Spec In Lab Gennaro Meyers MD MICROBIOLOGY - GENE RAL ORDERABLES Performing Organization Address [facility]/[place] [address] * (ABNORMAL) Tissue culture (05/14/2024 11:33 AM EDT) Tissue Culture One colony of Coagulase negative Staphylococcus species(A) [facility] Gram Stain Few Neutrophils seen Rare Gram Positive Cocci in pairs seen Results called to and read back by Dr. Mihaela Galvan ??05/14/24 14:57:00 (A) [facility] Organism Coagulase negative Staphylococcus species(A) [facility] Organism Gram Positive Cocci in pairs(A) [facility] Toe 05/14/2024 11:3 3 AM [...] Sensitive Comment:Gentamicin i s not appropriate for Sanders-therapy. Coagulase Negative Staphylococcus species Levofloxacin MICROSCAN METHOD [...] METHOD Sensitive Gennaro Meyers MD MICROBIOLOGY - [facility] ORDERABLES Performing Organization Address City/State/[facility] Co de Phone Number [facility] [place] [address] * Surgical Pathology Report (05/14/2024 11:32 AM EDT) Surgical Pathology Report [id number] ? Location: [id number]; 0421; A The signing [...] MD, Shima Verified: ??05/20/2024 11:25 Performed at: ??-[facility] Dept. of Pathology, [place] [address] Social Media Content Manager: Polly Barnhart MD, FCAP, ??CLIA Certificate: [id number] SPECIMEN(S) SUBMITTED A - RIGHT 2ND TOE, [...] Sections/Processi ng: Blocks submitted for decalcification: A1-A2. Soldering Machine Setter sections in 2 cassettes as follows: ?A1-A2: ??Longitudinal section of digit ??cmk [facility] 05/14/2024 11:3 2 AM EDT Gennaro Meyers MD PATHOLOGY/CYTOLOGY ORDERABLES [facility] [place] [address] * Specimen to Pathology (05/14/2024 11:32 AM EDT) AP Specimen 05/14/2024 11:3 2 AM EDT 05/14/2024 11:32 AM EDT Narrative [facility] - 05/14/2024 11:32 AM EDT Specimen requisition ordered. ??Separate Pathology report to follow Treva Diaz MD PATHOLOGY/CYTOLOGY ORDERABLES Performing Organization Address City/[facility]/[place] [address] * Scan, Peripheral Blood (05/13/2024 5:29 AM EDT) Only the most recent of2 resultswithin the time period is included. [facility] Plat estimate Normal [facility] RBC Morphology Abnormal [facility] Sofía Cells 1-5 /HPF [facility] Plat, Giant Less than 1 /HPF [facility] Blood 05/13/2024 5:29 AM EDT 05/13/2024 5:49 AM EDT Narrative Resulting Agency Comment Spec In Lab Carlotta Davis MD HEMATOLOGY OR DERABLES Performing Organization Address [facility] Co de Phone Number [facility] [place] [address] * Duplex for DVT, Leg, Unilat (05/12/2024 10:19 AM EDT) Pathologist [facility] VB Text Report Department: Vascular Surgery Lab Patient: [id number] (AVE KOLB) CPT: [id number] Referring Physician: JULIUS COOK ?? Phone: Indications: [...] MD VASCULAR ORDERABLE S Performing Organization Address [facility] Co de Phone Number [facility] * (ABNORMAL) Sedimentation rate (05/12/2024 4:45 AM EDT) Sedimentation Rate Automated >119(H) 3 - 46 mm/hr [facility] Comment: Effective September 24, 2019 [...] MD HEMATOLOGY ORDERABLE S Performing Organization Address [facility] de Phone Number [facility] [place] [id number] * ANGY, legs, multiple levels (05/12/2024 3:22 AM EDT) VB Text Report Department: Vascular Surgery Lab Patient: [id number] (AVE KOLB) CPT: [id number] Referring Physician: ARELY DICKSON ?? Phone: Indications: [...] * Lactate, whole blood, send to lab ([facility]) (05/10/2024 6:55 AM EDT) Only the most recent of2 resultswithin the time period is included. Lactate WB 1.7 0.5 - 2.2 mmol/L [facility] Blood 05/10/2024 6:55 AM EDT 05/10/2024 7:00 AM EDT Narrative Resulting Agency Comment Spec In Lab Arely Dickson MD CHEMISTRY ORDERABLES Performing Organization Address [facility] Co de Phone Number [facility] [place] [address] * CK (05/10/2024 6:55 AM EDT) Creatine Kinase 58 0 - 200 unit/L [facility] Blood Venous Draw / Unknown 05/10/2024 6:55 AM EDT 05/10/2024 7:41 AM EDT Narrative Resulting Agency Comment Spec In Lab Emmanuel Corey DO CHEMISTRY ORDERABLES Performing Organization Address City/[facility]/ZIP Co de Phone Number [facility] [place] [address] * MRI Foot wwo Contrast Right (05/10/2024 5:51 AM EDT) WORKSTATION ID [id number] [facility] Anatomical Region Laterality Modality Foot Right Magnetic [...] who have questions please contact the health primary care physician that requested your imaging first. ? Electronically signed by: Trinidad Mota MD, [facility] ([phone]), at 05/10/2024 12:56 PM Narrative 05/10/2024 12:56 PM EDT EXAMINATION: MRI [...] patients who have questions please contactthe health primary care physician that requested your imaging first. Electronically signed by: Trinidad Mota MD, [facility]([phone]), at 05/10/2024 12:56 PM Arely Dickson MD IMG MRI ORDERABLES * Urea nitrogen, urine, random (05/10/2024 4:15 AM EDT) Urea Nitrogen, Urine 580 mg/dL [facility] Urine 05/10/2024 4:15 AM EDT 05/10/2024 4:23 AM EDT Narrative Resulting Agency Comment Spec In Lab Arely Dickson MD URINE ORDERABLES Performing Organization Address [facility] Co de Phone Number [facility] [place] [address] * Sodium, urine, random (05/10/2024 4:15 AM EDT) Sodium, Urine <20 mmol/L [facility] Urine 05/10/2024 4:15 AM EDT 05/10/2024 4:23 AM EDT Narrative Resulting Agency Comment Spec In Lab Arely Dickson MD URINE ORDERABLES Performing Organization Address [facility]/ZIP Co de Phone Number [facility] [place] [address] * (ABNORMAL) Skin/Superficial Wound Culture Toe (05/10/2024 2:56 AM EDT) Skin/Superfic ial Wound Culture Rare mixed bacterial morphotypes suggestive of normal cutaneous armani including Rare Gram Negative Rods (A) [facility] Gram Stain Many Neutrophils seen Few Gram Positive Cocci seen (A) [facility] Organism Gram Negative Rods(A) [facility] Organism Gram Positive Cocci(A) [facility] Superficial Wound TOE STRUCTURE / Unknown 05/10/2024 2:56 AM EDT 05/10/2024 5:18 AM EDT Comment:Right toe wound Narrative Resulting Agency Comment Spec In Lab Arely Dickson MD MICROBIOLOGY - GENER AL ORDERABLES [facility] [place] [address] * (ABNORMAL) Urinalysis without microscopic (05/10/2024 2:42 AM EDT) Glucose, Urine Dipstick Negative Negative mg/dL [facility] Protein, Urine Dipstick 30(A) Negative mg/dL [facility] Bilirubin, Urine Dipstick Negative Negative mg/dL [facility] Comment: Clinical correlation required for positive Urine Bilirubin results as false positive may occur with some drugs and drug related products. If a false positive is suspected a serum total bilirubin should be considered if clinically indicated. Urobilinogen, Urine Dipstick Normal Normal mg/dL [facility] pH, Urn (dipstick) 5.5 5.0 - 8.0 [facility] Blood, Urine Dipstick Large(A) Negative mg/dL [facility] Ketone, Urine Dipstick Negative Negative mg/dL [facility] Nitrite, Urine Dipstick Negative Negative [facility] Leukocytes, Urine Dipstick Small(A) Negative [facility] Appearance, Urine Dipstick Cloudy(A) Clear [facility] Specific [place] Urine Automated 1.017 1.005 - 1.030 [facility] Color, Urine Dipstick Farina(A) Yellow [facility] Urine 05/10/2024 2:42 AM EDT 05/10/2024 2:57 AM EDT Narrative Resulting Agency Comment Spec In Lab Arely Dickson MD URINE ORDERABLES Performing Organization Address [facility] Co de Phone Number [facility] [place] [address] * EKG 12 Lead (05/10/2024 2:38 AM EDT) Ventricular rate 107 BPM MUSE SYSTEM QRS Duration 114 ms MUSE SYSTEM Q-T Interval 324 ms MUSE SYSTEM QTC Calculated (Bezet) 432 ms MUSE SYSTEM Calculated R Wh[place] -46 degrees MUSE SYSTEM Calculated T [place] 47 degrees MUSE SYSTEM INTERPRETATION Atrial fibrillation Left axis deviation Abnormal ECG No previous ECGs available Confirmed by MD ARVIND, CHRISTIAN ([id number]) on 05/11/2024 3:17:18 PM MUSE SYSTEM 05/10/2024 2:38 AM EDT 05/11/2024 3:17 PM EDT Unknown ECG ORDERABLES Performing Organization Address [facility] de Phone Number MUSE SYSTEM * XR Chest One View (05/10/2024 2:37 AM EDT) WORKSTATION ID [id number] RAD Anatomical Region Laterality Modality Chest N/A Digital Radiogra phy Impressions 05/10/2024 3:27 AM EDT Bibasilar atelectasis. Thank you for letting us participate in the care of this patient. ??If you are a health care provider and have any questions regarding this report, please contact the number below. ??For patients who have questions please contact the health primary care physician that requested your imaging first. ? Narrative [...] patients who have questions please contactthe health primary care physician that requested your imaging first. Arely Dickson MD IMG DX ORDERABLES * Blood culture (05/10/2024 2:32 AM EDT) Blood Culture No growth at 5 days. [facility] Blood STRUCTURE OF RIGHT HAND / Unknown 05/10/2024 2:32 AM EDT 05/10/2024 4:17 AM EDT Narrative Resulting Agency Comment Spec In Lab Arely Dickson MD MICROBIOLOGY - BLOOD ORDERABLES Performing Organization Address City/[facility]/ZIP Co de Phone Number [facility] [place] [address] * Type and Screen Validity (05/10/2024 2:20 AM EDT) T&S only valid at [facility] Comment:This Type and Screen result is only valid at the [facility] Blood 05/10/2024 2:20 AM EDT 05/10/2024 2:49 AM EDT Narrative Resulting Agency Comment Spec In Lab Anita Camacho MD BLOOD BANK LAB ORDER ANGELIQUE Performing Organization Address [facility]/ZIP Co de Phone Number [facility] [place] [address] * ABORH Recheck Status (05/10/2024 2:20 AM EDT) ABORH Recheck Order Order Placed [facility] ABORH Type Recheck Completed [facility] Blood 05/10/2024 2:20 AM EDT 05/10/2024 2:49 AM EDT Narrative Resulting Agency Comment Spec In Lab Anita Camacho MD BLOOD BANK LAB ORDER ANGELIQUE Performing Organization Address City/[facility]/ZIP Co de Phone Number [facility] [place] [address] * (ABNORMAL) Prothrombin Time (05/10/2024 2:20 AM EDT) Prothrombin Time 27.9(H) 9.4 - 12.5 sec [facility] International Normalization Ratio 2.5 [facility] Comment: An INR <2.0 indicates [...] MD HEMATOLOGY ORDERABLE S Performing Organization Address City/[facility]/ZIP Co de Phone Number [facility] [place] [address] * (ABNORMAL) Hemoglobin A1c (05/10/2024 2:20 AM EDT) Hemoglobin A1c 5.9(H) 4.3 - 5.6 % [facility] Comment: Reference Range: 4.3 - [...] Mellitus, Diabetes Care 2013; 36: Suppl. 1, Y59-92 Estimated Average Glucose See note mg/dL [facility] Comment: Estimated Average Glucose not appropriate for patients over 70 years of age. Blood 05/10/2024 2:20 AM EDT 05/10/2024 2:36 AM EDT Narrative Resulting Agency Comment Spec In Lab Arely Dickson MD CHEMISTRY ORDERABLES Performing Organization Address [facility] Co de Phone Number [facility] [place] [address] * Film Library- Storage Only CT Lower Extremity (2024 9:16 PM EDT) Narrative [facility] RAD - 2024 9:16 PM EDT This exam is auto-finalizing. It's purpose is for storage only. Arely Dickson MD IMG FILM LIBRARY ORD ERABLES [place], [place] * Film Library- Storage Only CT Chest Abdomen Pelvis (2024 9:16 PM EDT) Narrative RAD - 2024 9:16 PM EDT This exam is auto-finalizing. It's purpose is for storage only. Arely Dickson MD [facility] FILM LIBRARY ORD ERABLES [place], [place] from Last 3 Months Advance Directives * Attempt Cardiopulmonary Resuscitation - Inpatient (Latest Code Status on File) Date Activated Date Inactivated Comments 05/10/2024 2:17 AM 05/23/2024 6:20 PM Question Answer Comments Code Status decision made by: Patient Content of discussion: Full code Healthcare Agents on File Name Relationship Healthcare Agent Relationship Communication Eddie Kolb Son/[id number] Health Care Agent Care Teams Cupola Patcher Relationship Specialty Start Date End Date None None PCP - General 11/26/17
--- OUTSIDE RECORDS SUMMARY | 2024-06-03 20:35 | XMS_ITS | Continuity of Care Document ---
Author Organization [place] - [facility] Address [address] [place] [address] Assessment Encounter Date Assessment Date Assessment LastModified [...] Kisha t Name: Jossy Leyva Unit #: [id number] Loc: ER Orderi ng Provid er: Timothy blake,Yelena n PA Accoun t #: [id number] Status : PRE ER Primar [...] ION DOSE DELIVE RED: Ordere d By: Timtohy blake,Yelena MIMS CC: ------ ------ ------ ------ [...] at the addres s above. Thank- you. [id number] [facility] [address], [place], [address] 05/12/2024 08:01:30 05/09/20 24 2024 vrad repor t Patien t Name: Jossy Leyva Unit #: [id number] Loc: ER Orderi ng Provid er: Accoun t #: [id number] Status : REG ER Primar y [...] zation : [facility] use at least one of [...] ticate d by: Andrew downs MD. Orderi ng:Pamela Castillo MD Access ion#=[id number] Ordere d By: CC: ------ ------ [...] error, please notify us immedi ately at [phone] and return the origin al report to us at the addres s above. Thank- you. crystal [facility] [address] [place], [address] 05/12/2024 08:01:30 05/09/20 24 2024 vrad repor t Patien t Name: Jossy Leyva Unit #: [id number] Loc: ER Orderi ng Provid er: Accoun t #: [id number] Status : REG ER Primar y [...] ticate d by: Andrew downs MD. Orderi ng:Pamela Castillo MD Access ion#=[id number] Ordere d By: CC: ------ ------ [...] the addres s above. Thank- you. crystal [facility] [address] [place], [address] 05/12/2024 08:01:30 05/10/20 24 05/10/2024 CT imagi ng repor t Patien t Name: Jossy Leyva Unit #: [id number] Loc: ER Orderi ng Provid er: Yelena Henley Accoun t #: [id number] Status : DEP ER Primar y Care Provid er: Chanda Walker bimal Date of Exam: Sex: M : [...] [employer] ([employer]). RADIAT ION [...] = 0.00 mGy-cm Ordere d By: Yelena eHnley CC: ------ ------ ------ ------ ------ ------ [...] error, please notify us immedi ately at [phone] and return the origin al report to us at the addres s above. Thank- you. crystal [facility] [address] [place], [address] 05/12/2024 08:01:31 05/11/20 24 05/11/2024 CT imagi ng repor t Patien t Name: Jossy Leyva Unit #: [id number] Loc: ER Orderi ng Provid er: Yelena Henley Accoun t #: [id number] Status : DEP ER Primar [...] facili ty are submit sebastián to the [facility] al Radiol ogy Data Regist ry [...] this report in error, please notify us immpastor richards at and return the origin al report to us at the addres s above. Thank- you. crystal [facility] [address] [place], [address] 05/12/2024 08:01:31 Result Notes None recorded. Problems Name Status Onset Date Resolution Date Notes Provider Name and Address Organization Details Recorded Time Chronic obstructive pulmonary disease Active 201912/14/2021 - Comments only - Pepe Bill RPA - lungs clear on exam. nonlabored. He stopped smoking greater than 10 years ago. Problem Code: J44.9; Problem Code Type: ICD-10; Not Available [facility] 3 05:06:14 Atrial fibrillation Active 201911/27/2022 - Comments only - Pepe Bill RPA - Continues to be rate controlled. Continues on Xarelto. We will check a CBC. Problem Code: I48.91; Problem Code Type: ICD-10; Not Available [facility] 3 05:06:14 Essential hypertension Active 201911/27/2022 - Comments only - Pepe Bill RPA - Well controlled on current medication management. Problem Code: I10; Problem Code Type: ICD-10; Not Available [facility] 3 05:06:14 Type 2 diabetes mellitus without [...] E11.9; Problem Code Type: ICD-10; Not Available [facility] 3 05:06:14 Heart failure Active 201911/27/2022 - Comments only - Pepe Bill RPA - Appears stable on current medication management. No significant changes in lower extremity edema. If anything a bit improved. He continues on carvedilol and furosemide. Encouraged more routine exercise. Problem Code: I50.9; Problem Code Type: ICD-10; Not Available [facility] 3 05:06:14 Peripheral vascular disease Active 2019 Problem Code: I73.9; Problem Code Type: ICD-10; Not Available [facility] 3 05:06:14 Screening for malignant neoplasm of prostate Active 201907/26/2020 - Comments only - Pepe Bill RPA - We will check a PSA Problem Code: Z12.5; Problem Code Type: ICD-10; Not Available [facility] 3 05:06:14 Dystrophia unguium Active 201909/06/2020 - Comments only - Pepe Bill RPA - Referral has been made to podiatry. He has not heard on this referral yet Problem Code: L60.3; Problem Code Type: ICD-10; Not Available [facility] 3 05:06:15 Pain in thoracic spine Active 201908/19/2020 - Comments only - Pepe Bill RPA - herniated disk 1997. 2016 MRI with L5-S1 spinal stenosis - subsequent steroid injection and ablation. Problem Code: M54.9; Problem Code Type: ICD-10; Not Available [facility] 3 05:06:15 Edema Active 201912/14/2021 - Comments only - Pepe Bill RPA - improved from a year ago. He restricts sodium. Compliant with his cardiac meds. No evidence of cellulitis which has been a significant issue in past. Problem Code: R60.9; Problem Code Type: ICD-10; Not Available [facility] 3 05:06:15 Malaise Active 202101/11/2022 - Improved [...] R53.81; Problem Code Type: ICD-10; Not Available [facility] 3 05:06:15 Tinnitus Active 202101/11/2022 - Comments [...] H93.19; Problem Code Type: ICD-10; Not Available [facility] 3 05:06:15 Carpal tunnel syndrome of right wrist Active 202212/21/2022 - Comments only - Pepe Bill RPA - confirmed on emg's Problem Code: G56.01; Problem Code Type: ICD-10; Not Available [facility] 3 05:06:15 Cellulitis Completed 201901/11/2022 Problem Code: L03.90; Problem Code Type: ICD-10; Not Available [facility] 3 05:06:37 Renal insufficiency Active [address], [place], [address] , [facility] 4 11:54:52 Problem Notes None recorded. Medical [...] 2nd Gen Pen Needle 32 gauge x USE 1 NEEDLE UNDER THE SKIN FOUR [...] pneumococcal, unspecified formulation 07/17/2020 completed Not Available [facility] 08/24/2023 05:17:59 Tdap 11/27/2022 completed Not Available [facility] 05:17:59 Influenza, high-dose, quadrivalent, PF 11/27/2022 completed Not Available [facility] 08/24/2023 05:18:00 COVID-19, mRNA, LNP-S, PF, 100 mcg/0.5mL dose or 50 mcg/0.25mL dose 12/10/2020 completed Not Available [facility] 08/24/2023 05:18:00 COVID-19, mRNA, LNP-S, PF, 100 mcg/0.5mL dose or 50 mcg/0.25mL dose 01/07/2021 completed Not Available [facility] 08/24/2023 05:18:00 COVID-19, mRNA, LNP-S, PF, 100 mcg/0.5mL dose or 50 mcg/0.25mL dose 03/15/2022 completed Not Available [facility] 08/24/2023 05:18:00 SARS-COV-2 (COVID-19) vaccine, UNSPECIFIED 09/17/2021 completed Not Available [facility] 08/24/2023 05:18:00 COVID-19, mRNA, LNP-S, bivalent, PF, 30 mcg/0.3 mL dose 11/27/2022 completed Not Available [facility] 08/24/20 05:18:00 pneumococcal polysaccharide PPV23 03/15/2022 completed Not Available [facility] 2022 05:18:00 influenza, unspecified formulation 07/17/2020 completed Not Available [facility] 08/24/2023 05:18:00 Past Encounters Encounter ID Performer Location Encounter Start Date Encounter Closed Date Diagnosis/Indication Diagnosis SNOMED-CT Code [id number] PEPE BILL PA-C [facility] [address] [place] [facility] [place] [address] 05/27/2024 16:09:14 05/31/2024 04:05:12 Health Concerns Section Related Observation LastModified by Organization Doyna lane LastModified Time None Recorded Concern Status LastModified by Organization Details LastModified Time None Recorded Payers Encounter Date Sequence Insurance Name Policy Number Policy White Covered Member ID White Member ID Guarantor Name 05/27/2024 1 *SELF PAY* Ted Hernandez
--- OUTSIDE RECORDS SUMMARY | 2024-06-03 20:35 | XMS_ITS | Encounter Summary ---
Author Organization Pending Sale To [facility] Address [facility] [place] [address] Care Team Providers Care Candy Department Manager Name Role Phone None Primary Care Provider Unavailabl e Encounter Details Date Type Department Care Team (Late st Contact Info) Description 05/26/2024 Orders [place] [address] 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
--- OUTSIDE RECORDS SUMMARY | 2024-06-03 20:35 | XMS_ITS | Encounter Summary ---
Author Organization [facility] [place] [address] Care Team Providers Care Clinic Manager Name Role Phone None Primary Care Provider Unavailabl e Encounter Details Date Type Department Care Team (Late st Contact Info) Description 05/26/2024 Telephone [place] [phone] Marina Mason RN Social History Tobacco Use [...] Antimicrobials: Rodriguez Hein MD Review/Pertinent information: 1409: sba underwriter spoke with nursing staff at [facility] regarding IV ABX; patient is receiving Ceftriaxone 2 gIV daily; they were unaware of ordered labs. Faxed to [facility] on 05/26/24 at 1439 Fax confirmation on 05/26/24 at 1441 Documents faxed: OPAT order (see above) May f/ appointment schedule F/u: Weekly labs 06/03: ID EARLY INTERVENTIONIST Lu aMson BS, RN, ACM-RN OPAT Program documented in this encounter Plan of Treatment Upcoming Encounters Date Type Department Care Team (Late st Contact Info) Description 06/10/2024 10:30 AM EDT [place] [address] Elkin Garcia MD [facility] DR [place] [address] documented as of this encounter Visit Diagnoses Not on filedocumented in this encounter Care Teams Clinic Manager Relationship 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
--- OUTSIDE RECORDS SUMMARY | 2024-06-03 20:35 | XMS_ITS | Encounter Summary ---
[facility] [place] [address] Care Team Providers Care Fleet Manager Name Role Phone None Primary Care Provider Unavailabl e Encounter Details Date Type Department Care Team (Late st Contact Info) Description 05/30/2024 Telephone [place] [phone] Lu Mcfarland APRN [facility] [place] [address] Social History Tobacco Use Types Packs/Day Years Used Date Smoking Tobacco: Former Cigarettes 14 0.6 S tarted: 2023 Smokeless Tobacco: Never Alcohol Use Standard Drinks/Week Comments Yes 0 (1 standard drink = 0.6 oz pur e alcohol) 3-4 PER [facility] IPV Inpatient Questions Answer Date Recorded Does [...] encounter Miscellaneous Notes * Telephone Encounter - uL Mcfarland APRN - 05/30/2024 12:30 PM EDT S: Mr. Knights' R foot site is healing well, it's looking better. 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 Projected end date for IV antibiotic therapy is 06/04/2024. Call to patient's rehab center in [facility] to inquire about recent abnormal lab work. Patient's CRP increased from 14.1 to 171 in five days. Per the unit nurse horse farm manager, patient, has quite a bitof edema in both of his legs. His edema is much worse. He also states that patient is being treated for a sacral decubitus which could be causing the CRP increase. The facility has an MD and SUPERVISOR PRODUCT INSPECTION providing medical care to the patients and [...] follow-up per the rehab with MD and SUPERVISOR PRODUCT INSPECTION EOT visit scheduled in ID next week Repeat lab work early next week: CBC w/diff, CMP, and CRP Lu Mcfarland APRN, Infectious Disease 05/30/2024 12:30 PM documented in this encounter Plan of Treatment Upcoming Encounters Date Type Department Care Team (Late st Contact Info) Description 06/10/2024 10:30 AM EDT Office [place] [address] Elkin Garcia MD [facility] [place] [address] documented as of this encounter Visit Diagnoses Not on filedocumented in this encounter Care Teams Fleet Manager Relationship 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
[2024-06-03 20:36] LABS: Abs Immature Grans 0.04 10^3/uL (0.0-0.06); Absolute Basophil Count 0.04 10^3/uL (0.0-0.2); Absolute Eosinophil Count 0.38 10^3/uL (0.0-0.7); Absolute Lymphocyte Count 1.13 10^3/uL (1.2-3.4); Absolute Monocyte Count 1.27 10^3/uL (0.1-0.8); Absolute Neutrophil Count 7.87 10^3/uL (1.2-6.7); Basophils % 0.4 %; Eosinophils % 3.5 %; HCT 24.3 % (40.0-50.0); HGB 7.6 g/dL (13.5-17.5); Immature Grans % 0.4 %; Lymphocytes % 10.5 %; MCH 29.5 pg (27.0-33.0); MCHC 31.3 % (32.0-36.0); MCV 94 fL (80-95); MPV 10.1 fL (8.0-11.0); Monocytes % 11.8 %; Neutrophils % 73.4 %; Platelet Count 302 10^3/uL (130-400); RBC 2.58 10^6/uL (4.36-5.78); RDW 16.2 % (11.8-14.1); RDW-SD 55.6 fL; WBC 10.73 10^3/uL (4.4-10.8)
--- OUTSIDE RECORDS SUMMARY | 2024-06-03 20:37 | XMS_ITS | Encounter Summary ---
Author Organization [place] [id number] Care Team Providers Care Hardware Engineering Manager Name Role Phone None Primary Care Provider Unavailabl e Reason for Visit * Auth/Cert (Routine) Specialty Diagnoses / Procedures Referred By Contac t Referred To Contact Diagnoses Septic shock septiic shock Procedures ER Tho Aquino MD [facility] [place] [address] [facility] Referral ID Status Reason Start Date Expiration Date Visits Re quested Visits Authorized [id number] 1 1 Encounter Details Date Type Department Care Team (Late st Contact Info) Description 05/22/2024 4:33 PM EDT Anesthesia [place] [address] Soledad Doyle MD [facility] [place] [address] Davie Le MD [facility] [place] [address] Anesthesia Record Procedure Summary Procedure Name Responsible [...] Procedure Summary Date: 05/22/24 Room / Location: [facility] ENDO 5 / [facility] ENDOSCOPY Anesthesia Start: 1633 Anesthesia Stop: 1649 Procedures: EGD, UPPER GI ENDOSCOPY (WRVU 2.09) (Trunk) EGD, W CONTROL OF BLEEDING, ANY METHOD (WRVU 3.56) EGD, W DIRECTED SUBMUCOSAL INJECTION(S) (WRVU 2.39) Diagnosis: (? melena) Surgeons: Jonn Mena MD Responsible Provider: Soledad Doyle MD Anesthesia Type: MAC ASA Status: 3 All Anesthesia Providers: Anesthesiologist: Soledad Doyle MD SOUVENIR AND NOVELTY MAKER: Gennaro Real CRNA Vitals Value Taken Time [...] Access Non-Dialysis 05/21/2024 Juan José Flowers MD [facility] INTERVENTIONL RAD PRO AMPUTATION METATARSAL+TOE, SINGLE Right 05/14/2024 AMPUTATION, TRANSMETATARSAL TOE, ONE TOE (WRVU 6.64) performed by Elkin Garcia MD at [facility] MAIN OR Social History Tobacco Use Smoking [...] 10:30 AM EDT Office [place] [address] Elkin Garcia MD [facility] [place] [address] documented as of this encounter Visit Diagnoses [...] mg documented in this encounter Care Teams Hardware Engineering Manager Relationship 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
--- OUTSIDE RECORDS SUMMARY | 2024-06-03 20:37 | XMS_ITS | Encounter Summary ---
[place] [address] Care Team Providers Care Automatic Steel Tie Adjuster Name Role Phone None Primary Care Provider Unavailabl e Reason for Referral * Consultation (Routine) - Authorized Specialty Diagnoses / Procedures Referred By Contac t Referred To Contact Nephrology Diagnoses Stage 4 chronic kidney disease Juan José Harrison MD [facility] [place] [address] [facility] Nephrology [address] [place] [phone] Referral ID Status Reason Start Date Expiration Date Visits Requested Visits Authorized [id number] Authorized Specialty Service Requested 05/23/2024 05/23/2025 1 1 * Consultation (Routine) - Authorized Specialty Diagnoses / Procedures Referred By Contac t Referred To Contact Infectious Diseases Diagnoses Osteomyelitis of second toe of right foot Rodriguez Hein MD [facility] [place] [address] [facility] Infectious Dis [address] [place] [phone] Referral ID Status Reason Start Date Expiration Date Visits Requested Visits Authorized [id number] Authorized Assume Subset of Care 05/17/2024 05/17/2025 1 1 Reason for Visit * Auth/Cert (Routine) Specialty Diagnoses / Procedures Referred By Contac t Referred To Contact Diagnoses Septic shock septiic shock Procedures ER Tho Aquino MD [facility] [place] [address] [facility] Referral ID Status Reason Start Date Expiration Date Visits Re quested Visits Authorized [id number] 1 1 Encounter Details Date Type Department Care Team (Latest Contact Info) Description 05/10/2024 2:12 AM EDT - 05/23/2024 4:14 PM EDT Hospital Encounter Surgical Unit Level 4 [place] [id number] Tho Dickson MD [facility] [place] [address] Mary De La Fuente MD [address] [place] [address] [place] [address] [place] [address] Septic shock; Altered tissue perfusion; Osteomyelitis of second toe of right foot; Stage 4 chronic kidney disease Discharge Disposition: Nursing Home Facility Social History Tobacco Use Types Packs/Day Years Used Date Smoking Tobacco: Former Cigarettes 14 0.6 S tarted: 2023 Smokeless Tobacco: Never Tobacco Cessation:Counseling Given: Not Answered Alcohol Use Standard Drinks/Week Comments Yes 0 (1 standard drink = 0.6 oz pur e alcohol) 3-4 PER [facility] Inpatient Questions Answer Date Recorded [...] Jossy Shanks Patient Age: 69 y.o. Language: Kenyan Race: White Ethnicity: Not nor Admit date: [...] please contact your inpatient physician through the [facility] Supervisor Plasma . Issues afterhours and on weekends will [...] home oxygen, HFpEF, HTN who presented to [facility] for rt LE cellulitis, transferred to [facility] for septic shock. At end of March he dropped cylinder block on rt foot, bleeding and painful. Kept bandaged and sock on it, same sock on it for the last week, reports sock became fused to wound. Denies paresthesia. Wasable to walk w/out difficulty. In last several days erythema and edema spread upper Rt LE to knee. Fevers & chills for last 24hrs. [place] lightheaded, weak, & couldn't get out of [...] prior to OSH departure. On arrival to [facility]: HR 96, o2 sat mid 90s on [...] care, the same day as transfer to [facility]. On the general medicine floor, he was [...] border dressing. (Melgisorb Ag 6x6 PS # [id number]) (Melgisorb Ag 4x4 PS # [id number]) Sacrum/ischium: open to air, utilize Z-guard if [...] 05/10/2024 2:37 AM) Result Value WORKSTATION ID [id number] Impression Bibasilar atelectasis. Thank you for letting us participate in the care of this patient. If you are a health care provider and have any questions regarding this report, please contact the number below. For patients who have questions please contact the health healthcare facility administrator that requested your imaging first. Foot wwo Contrast Right (Exam End: 05/10/2024 5:51 AM) Result Value WORKSTATION ID [id number] Impression 1. Soft tissue irregularity of the [...] who have questions please contact the health healthcare facility administrator that requested your imaging first. Electronically signed by: Trinidad Mota MD, [facility] ([phone]), at 05/10/2024 12:56 PM US Retroperitoneal Complete (Exam End: 05/20/2024 10:36 AM) Result Value WORKSTATION ID [id number] Impression 1. Very limited exam secondary to [...] signed by: Teofilo Ruiz MD, [facility] ([phone]), at 05/20/2024 11:30 AM Thank you for letting us participate in the care of this patient. If you are a health care provider and have any questions regarding this report, please contact the number above. For patients who have questions, please contact the health healthcare facility administrator that requested your imaging first. Teofilo Ruiz, Staff Physician Electronically Signed Final Report 05/20/2024 11:36 am Pending Studies and Lab Data: Discharge Conditions/Prognosis: s/p Left 2nd toe amputation, recovering, requiring rehab. Back to baseline. Discharge to: [facility] Updated Allergies/ADRs: No Known Allergies Immunizations [...] Center 06/03/2024 2:00 PM Lu Mcfarland APRN [facility] ID 5C [facility] 06/05/2024 4:00 PM Elkin Garcia MD [facility] ORTH 3C [facility] Your Discharge Medication List Your Medications New [...] as much as possible. Call your doctor ([phone]) if you develop: Fever greater than 100.5 Severe nausea or vomiting Increasing pain that is not controlled by pain medications Increasing redness, swelling, or drainage from incisions Change in sensation FOLLOW-UP APPOINTMENTS: 1. You will have follow-up appointments at [facility] as indicated below in Future Appointment and Orders. 2. You will need to have x-rays prior to your follow-up appointment listed below. Please come to Radiology, desk 3T, 1 hour BEFORE that appointment for these x-rays. Future Appointments Date Time Provider Department Center 06/03/2024 2:00 PM Lu Mcfarland APRN [facility] ID 5C [facility] 06/05/2024 4:00 PM Elkin Garcia MD [facility] ORTH 3C [facility] If you have questions or concerns: Sunday [...] the day after the procedure, use an rwbo-tmt-fklvqpx spray to numb your throat. Sucking on [...] occurs, please contact your Doctor. Please call [phone] before 8pm Mon-Fri with problems, questions or concerns. If you call after 8pm or on weekends, call the Hospital at [phone] and ask to speak to the Inspector Final Assembly Mechanical solutions operator and the tunnel drier operator will contact that person for you. [...] any problems. Where can you learn more? [facility] View your After Visit Summary and more online at [email or web address] If you would like to provide feedback about your hospital experience, please call the Office of Patient and Family Relations at . If you have received this After Visit Summary in error, please immediately return it in person to the department, or notify the [facility] Privacy Office by calling toll free at between the hours of 8AM and 5PM to arrange for our retrieval of the documents at no cost to you. Content Version: 12.2 ?? 2234-5468 [employer]. Care instructions adapted under license by [facility]. If you have questions about a medical condition or this instruction, always ask your healthcare professional. [employer] disclaims any warranty or liability for your [...] is during regular working hours, please call [phone]. If it is after 5 pm or a weekend or holiday, call [phone] and ask for the Talent Acquisition Coordinator solutions operator for Interventional Radiology. You have received medication [...] PM Lu Mcfarland APRN Infectious Disease at [facility] Arrive at: Fence Installer Foreman Area 5C [phone] 06/05/2024 4:00 PM Elkin Garcia MD Orthopaedics at [facility] Arrive at: Fence Installer Foreman Area 3C [phone] Future Orders Complete By Expires OPAT: Order / Recommendation for Post Discharge IV Antibiotic Management [PPQ265 CPT(R)] As directed Process Instructions: If no progress note charted, please enter Clinical details in comments. Scheduling Instructions: Comments: - If this order was signed greater than 72 hours prior to [facility] discharge, please call to confirm the accuracy of this order. Please Fax all results to: [facility] Program Infectious Disease Section [facility], [place] [address] FAX: - After hours, please contact the Infectious Disease Physician solutions operator at . - Line care instructions - see flush/heparin orders. Facilities may follow organizational policies/practices regarding heparin. - FDC for medication administration/hardboard supervisor and catheter care/maintenance authorized. HD Line [...] every Sunday fax results to OPAT at [phone]. Please draw labs off PICC line. Please see [facility] order for lab draw details. Please RN visit for IV ABX teaching and ongoing assessment. Nursing Home for Medication Administration/Hookup and catheter care/maintenance: - Teach Patient/Caregiver goals/self-monitoring/therapy administration to independence per the Nursing Care Plan. - FDC visit frequency; initial, weekly and 2 PRN [...] 05/20/2024 11:36 am) PATIENT INFO: ID #: [id number].O.B.: [id number] (69 yrs)(M) Name: JOSSY SHANKS Visit Date: 05/20/2024 10:34 am PERFORMED BY: Attending: Teofilo Ruiz MD Resident: Trinidad Light MD Performed By: Lulu Shin RDMS Referred By: SABA SPEARS Location: [place] SERVICE(S) PROVIDED: URETRO - Retroperitoneal Complete - [id number] INDICATIONS: CKD, increase BUN TECHNIQUE/SCAN QUALITY: Scan [...] 11:30 AMElectronically signed by: Teofilo Ruiz MD, [facility] ([phone]), at 05/20/2024 11:30 AM Thank you for letting us participate in the care of this patient. If you are a health care provider and have any questions regarding this report, please contact the number above. For patients whohave questions, please contact the health healthcare facility administrator that requested your imaging first. Teofilo Ruiz, Staff Physician Electronically Signed Final Report 05/20/2024 11:36 am My clinical question: Patient to establish for CKD management Do not type below here ERFRL_NEPH_CKD Questions: My question or request is: See comment Provider Contact Information: None None None Discharge References/Attachments Low Phosphorus Foods: General Info (Kenyan) Low Potassium Foods: General Info (Kenyan) documented in this encounter Discharge Instructions * [...] the day after the procedure, use an ruct-trh-bglahnv spray to numb your throat. Sucking on [...] occurs, please contact your Doctor. Please call [phone] before 8pm Mon-Fri with problems, questions or concerns. If you call after 8pm or on weekends, call the Hospital at [phone] and ask to speak to the Inspector Final Assembly Mechanical solutions operator and the tunnel drier operator will contact that person for you. [...] any problems. Where can you learn more? [facility] View your After Visit Summary and more online at [email or web address] If you would like to provide feedback about your hospital experience, please call the Office of Patient and Family Relations at . If you have received this After Visit Summary in error, please immediately return it in person to the department, or notify the [facility] Privacy Office by calling toll free at between the hours of 8AM and 5PM to arrange for our retrieval of the documents at no cost to you. Content Version: 12.2 ?? 0021-7129 [employer]. Care instructions adapted under license by [facility]. If you have questions about a medical condition or this instruction, always ask your healthcare professional. [employer] disclaims any warranty or liability for your [...] is during regular working hours, please call [phone]. If it is after 5 pm or a weekend or holiday, call [phone] and ask for the Talent Acquisition Coordinator solutions operator for Interventional Radiology. You have received medication [...] Center 06/03/2024 2:00 PM Lu Mcfarland APRN [facility] ID 5C [facility] 06/05/2024 4:00 PM Elkin Garcia MD [facility] ORTH 3C [facility] Your Discharge Medication List Your Medications New [...] as much as possible. Call your doctor ([phone]) if you develop: Fever greater than 100.5 Severe nausea or vomiting Increasing pain that is not controlled by pain medications Increasing redness, swelling, or drainage from incisions Change in sensation FOLLOW-UP APPOINTMENTS: 1. You will have follow-up appointments at [facility] as indicated below in Future Appointment and Orders. 2. You will need to have x-rays prior to your follow-up appointment listed below. Please come to Radiology, desk 3T, 1 hour BEFORE that appointment for these x-rays. Future Appointments Date Time Provider Department Center 06/03/2024 2:00 PM Lu Mcfarland APRN [facility] ID 5C [facility] 06/05/2024 4:00 PM Elkin Garcia MD [facility] ORTH 3C [facility] If you have questions or concerns: Sunday through Sunday, 8 AM - 5 PM, please call Dr. Saba Spears MD's office at . If it is after 5 PM, the weekend, or holidays, please call and ask to speak with theOrthopedic resident on-call. * Attachments The following attachments cannot be sent through Care Everywhere. * Low Phosphorus Foods: General Info (Kenyan) * Low Potassium Foods: General Info (Kenyan) documented in this encounter Medications at Time [...] spent >30 minutes (Day of Discharge Code 70501) involved in the final examination of the patient, discussion of the hospital stay, instructions for continuing care to all relevant caregivers, and preparation of discharge records, prescriptions and referral forms. Plans Discharge to [facility] rehab Follow-up scheduled with ID, ortho, provider at [facility] Please see the Discharge Summary for complete details of any medication changes and additional plans. * Yg Jaffe - 05/23/2024 2:44 PM EDT Office of Care Management(OCM)/Grades 1 Thru 5 Teacher(RS) Patient Name: Jossy Shanks : 1955 Patient has been offered a SNF bed at [phone]. [facility] arranged for a BLS transport at 1530. Ambulance will need: Medicare ambulance form completed and signed (MD or Shipping Clerk) Copy of patient demographics [place] Out of Hospital DNR/DNI order, if active No MD to MD report necessary. Please call Nursing Report to , ask for glue cook. Info to accompany patient: Narcotic Prescriptions Copies of Medication Administration Records and IV sheets for past two weeks. Plan: Grades 1 Thru 5 Teacher will be available to the patient and Shipping Clerk for further assistance. Patient to discharge to: [facility] [address] [place] [address] Yg Jaffe Grades 1 Thru 5 Teacher * Shirley Samuel RN - 05/23/2024 12:05 PM EDT Physician Certification Statement for Non-Emergency Ambulance Services Section I - General Information Jossy Shanks 1955 Medicare Number: n/a Transport Date: 05/23/2024 (PCS is valid for round trips on this date and for all repetitive trips in the 60-day range as noted below.) Origin: [facility] Destination: [facility] Is the patient's stay [...] van (i.e. seated during transport, without medical leader or monitoring?): No 4) In addition to [...] the Centers of Medicare and Medicaid Services ([facility]) to support the determination of medical [...] extremities. AAOx3 Labs: Labs personally reviewed in [facility] CBC: Recent Labs 05/23/24 0119 05/22/24 1118 [...] IMAGING: Reports and images personally reviewed in [facility]. Images independently interpreted. IR Tunneled Central Venous [...] signed by: Teofilo Ruiz MD, [facility] ([phone]), at 05/20/2024 11:30 AM Thank you for letting us participate in the care of this patient. If you are a health care provider and have any questions regarding this report, please contact the number above. For patients who have questions, please contact the health healthcare facility administrator that requested your imaging first. Teofilo Ruiz, [...] who have questions please contact the health healthcare facility administrator that requested your imaging first. Electronically signed by: Trinidad Mota MD, [facility] ([phone]), at 05/10/2024 12:56 PM XR Chest One View Final Result Bibasilar atelectasis. Thank you for letting us participate in the care of this patient. If you are a health care provider and have any questions regarding this report, please contact the number below. For patients who have questions please contact the health healthcare facility administrator that requested your imaging first. Electronically signed by: Yenni Ca MD, [facility] ([phone]), at 05/10/2024 3:27 AM ENDOSCOPY: Reports and images personally reviewed in e[facility] [...] with them as documented. Tl Steele MD [facility] Gastroenterology * Irene Bravo RN - 05/22/2024 [...] Zhao RN - 05/22/2024 12:47 PM EDT Study Hall Supervisor spoke with JACKIE Nuñez from Endo regarding [...] Galvan MD - 05/22/2024 6:57 AM EDT [facility] Medicine - Red Team Inpatient [...] with PT - hoping to go to [facility] today Meds: pantoprazole 40 mg Intravenous BID [...] shoe, c/w pt - Bed ready at [facility] #IDDM Home regiment: 1.2mg liraglutide [...] upcoming EGD, and availability of bed at [facility]. -ordered T&S in case continues to [...] Medicine Hospital Medicine Red Team - Pager [phone] Associated attestation - Saba Spears MD - [...] will transfuse and monitor response. Dispo to [facility] for rehab pending Hgb stability and EGD. I have examined the patient myself and personally reviewed all studies. In addition, I certify thatI am a D-H credentialed attending provider with admitting privileges and that the patient meets or has met medical necessity to require an inpatient IPI level of care meeting a minimum of two midnights or is on the [facility] inpatient only procedure list (status C) due to: OM requiring IV abx * Lazaro Aaron, SCOUTS - 05/21/2024 4:05 PM EDT Physical Therapy [...] discharge to swing bed rehab facility vs snf facility once medically ready for hospital discharge. Pt will continue to benefit from skilled physical therapy while in the hospital in order to maximize independence and safety with functional mobility and achieve therapeutic goals. Discharge Recommendations: Based on current findings- swing bed rehabilitation facility, snf facility Discharge recommendation is based on the [...] with stable vital signs. Total Time: 34 (4122-8908) minutes. TAx2 Lazaro Aaron PTA Pager: [phone] Physical Therapy Inpatient Rehabilitation Department * Penny [...] decreased insight into deficits Vision: corrective lenses campaign analyst Endurance: decreased activity tolerance Vitals: Stable on [...] with activities of daily living. Discharge Recommendation: snf facility, swing bed rehabilitation facility Equipment Recommendations: [...] 2-3 times/wk Total Minutes, Occupational Therapy: 40 ([facility] x3 ([phone])) Pager: [phone] Penny Rodriguez OT Occupational Therapy Rehabilitation Department [...] of : 1955 AGE: 69 y.o. Address: [address] [place] [id number] (home) Mobile: Telephone Information: Referring Provider: Anna [...] Medicine Hospital Medicine Red Team - Pager [phone] Associated attestation - Saba Spears MD - [...] mid 7s. Appreciate GI consult. Dispo to [facility] pending Hgb and EGD. I have [...] Galvan MD - 05/20/2024 6:20 AM EDT [facility] Medicine - Red Team Inpatient [...] Pip-tazo and vanc c/w CTX Planning for [facility] central line, instead of PICC Has offloading [...] Mihaela Galvan MD 05/20/2024 PGY-3, Internal Medicine [facility] Medicine Red Team - Pager [phone] Associated attestation - Saba Spears MD - [...] of two midnights or is on the [facility] inpatient only procedure list (status C) [...] rail, cues for technique Sit to Supine: [place], head of bed elevated, using bed rail [...] discharge to swing bed rehab facility vs snf facility once medically ready for hospital discharge. Pt will continue to benefit from skilled physical therapy while in the hospital in order to maximize independence and safety with functional mobility and achieve therapeutic goals. Discharge Recommendations: Based on current findings- swing bed rehabilitation facility, snf facility Discharge recommendation is based on the [...] Ho PT, Doctor of Physical Therapy Pager: [phone] Physical Therapy Inpatient Rehabilitation Department * Rebeca [...] decreased insight into deficits Vision: corrective lenses campaign analyst Endurance: decreased activity tolerance Vitals: Stable on [...] with activities of daily living. Discharge Recommendation: snf facility, swing bed rehabilitation facility Equipment Recommendations: [...] times/wk Total Minutes, Occupational Therapy: 47 Pager: [phone] Rebeca Moeller OT Occupational Therapy Rehabilitation Department * Mihaela Galvan MD - 05/19/2024 6:43 AM EDT [facility] Medicine - Red Team Inpatient [...] Mihaela Galvan MD 05/19/2024 PGY-3, Internal Medicine [facility] Medicine Red Team - Pager [phone] Associated attestation - Saba Spears MD - [...] for a hospital day 9 nutrition evaluation. Study Hall Supervisor met with pt at bedside. Pt saidhe [...] unless consulted in the interim. Julissa Weathers Car Unloader Helper * Mihaela Galvan MD - 05/18/2024 7:20 [...] Mihaela Galvan MD 05/18/2024 PGY-3, Internal Medicine [facility] Medicine Red Team - Pager [phone] Associated attestation - Saba Spears MD - [...] of two midnights or is on the [facility] inpatient only procedure list (status C) [...] Harrison MD - 05/17/2024 6:28 AM EDT [facility] Medicine Red Team Inpatient Progress Note ID: [...] Meds: insulin lispro 1-6 Units Subcutaneous Q4H [facility] insulin glargine (Lantus;Semglee) (100 unit/mL) subcutaneous injection [...] José Harrison MD 05/17/2024 PGY-3, Internal Medicine [facility] Medicine Red Team - Pager [phone] Associated attestation - Saba Spears MD - [...] male admitted on 05/10/[address] Treva iDaz MD. Per MD note, Jossy Shanks is [...] 6.64) performed by Elkin Garcia MD at [facility] MAIN OR Active Non-Hospital Problems Diagnosis Degenerative [...] [place] PT, Doctor of Physical Therapy Pager: [phone] Physical Therapy Inpatient Rehabilitation Department * Emmanuel [...] History: Housing: lives in a camper in [facility] Occupation: Former [employer], retired in [...] Component Value - Date/Time MRSA PCR Screen ([facility]/CGP/APD/NLH) [[id number]] Collected: 05/15/24 1615 Lab Status: Final result Specimen: Nasopharyngeal Swab Updated: 05/15/242012 MRSA Result Negative MRSA Interp -- Methicillin-resistant Staphylococcus aureus (MRSA) is NOT DETECTED The MRSA target DNA sequences (mec and SCC) were not detected within the acceptable ranges using the Xpert MRSA NxG on the GeneXpert Dx System ([employer]). This suggests the absence of MRSA in the patient specimen submitted for testing. This test is cleared by the U.S. Food and Drug Administration for clinical use and its performance characteristics have been verified by the [facility] at [facility]. This result does not rule out the presence of any other organisms. Rare false negative results may occur if MRSA is present at low concentrations with much higher concentrations of other organisms including MRSE or S. aureus with an empty SCC cassette. Comment: [VERIFIED DATE]05.15.24 Verified By:Lupe Jensen (Electronic Signature) Tissue Culture, Aerobic & Anaerobic Toe [[id number]] (Abnormal) Collected: 05/14/24 1133 Lab Status: Preliminary result Specimen: Toe Updated: 05/15/24 1212 Tissue culture [[id number]] (Abnormal) Collected: 05/14/24 1133 Lab Status: Preliminary result Specimen: Toe Updated: 05/15/24 1212 Tissue Culture No growth to date. Gram Stain -- Few Neutrophils seen Rare Gram Positive Cocci in pairs seen Results called to and read back by Dr. Mihaela Galvan 05/14/24 14:57:00 Organism Gram Positive Cocci in pairs Anaerobic Culture [[id number]] Collected: 05/14/24 1133 Lab Status: Preliminary result Specimen: Toe Updated: 05/15/24 1124 Anaerobic Culture No anaerobic organisms isolated to date Blood culture [[id number]] Collected: 05/10/24 0232 Lab Status: Final result Specimen: Blood from Hand, Right Updated: 05/15/24 0701 Blood Culture No growth at 5 days. Skin/Superficial Wound Culture Toe [[id number]] (Abnormal) Collected: 05/10/24 0256 Lab Status: Final [...] follow. Please page ID Red team (pager [phone]) with questions or concerns. Emmanuel Corey, DO Internal Medicine PGY-2 Pager: [phone] Epic Chat 05/16/2024 Associated attestation - Rodriguez [...] from the original note were not included. [facility] Medicine - Red Team Inpatient [...] Component Value - Date/Time MRSA PCR Screen ([facility]/APD/[facility]H) [[id number]] Collected: 05/15/24 1615 Lab Status: Final result Specimen: Nasopharyngeal Swab Updated: 05/15/242012 MRSA Result Negative MRSA Interp -- Methicillin-resistant Staphylococcus aureus (MRSA) is NOT DETECTED The MRSA target DNA sequences (mec and SCC) were not detected within the acceptable ranges using the Xpert MRSA NxG on the GeneXpert Dx System ([employer]ympel). This suggests the absence of MRSA in the patient specimen submitted for testing. This test is cleared by the U.S. Food and Drug Administration for clinical use and its performance characteristics have been verified by the [facility] at [facility]. This result does not rule out the presence of any other organisms. Rare false negative results may occur if MRSA is present at low concentrations with much higher concentrations of other organisms including MRSE or S. aureus with an empty SCC cassette. Comment: [VERIFIED DATE]05.15.24 Verified By:Lupe Jensen (Electronic Signature) Tissue Culture, Aerobic & Anaerobic Toe [[id number]] (Abnormal) Collected: 05/14/24 1133 Lab Status: Preliminary result Specimen: Toe Updated: 05/15/24 1212 Tissue culture [[id number]] (Abnormal) Collected: 05/14/24 1133 Lab Status: Preliminary result Specimen: Toe Updated: 05/15/24 1212 Tissue Culture No growth to date. Gram Stain -- Few Neutrophils seen Rare Gram Positive Cocci in pairs seen Results called to and read back by Dr. Mihaela Galvan 05/14/24 14:57:00 Organism Gram Positive Cocci in pairs Anaerobic Culture [[id number]] Collected: 05/14/24 1133 Lab Status: Preliminary result Specimen: Toe Updated: 05/15/24 1124 Anaerobic Culture No anaerobic organisms isolated to date Blood culture [[id number]] Collected: 05/10/24 0232 Lab Status: Final result Specimen: Blood from Hand, Right Updated: 05/15/24 0701 Blood Culture No growth at 5 days. Skin/Superficial Wound Culture Toe [[id number]] (Abnormal) Collected: 05/10/24 0256 Lab Status: Final [...] PGY-1, Internal Medicine Red Team - Pager [phone] Associated attestation - Treva Diaz MD - [...] of two midnights or is on the [facility] inpatient only procedure list (status C) [...] likely suture removal on 06/05/24. Please page [phone] with any questions or concerns. Activity: NWB until forefoot offloading shoe DVT prophylaxis: per primary, rec 30 days LVX or ASA81 BID Closure: Sutures (to be removed at Orthopaedic follow-up appointment) Dressing: bacitracin, xeroform, 4x4, kerlix, DEREK x 7 days Antibiotics: per primary Isra Rodriguez IV, DO 05/16/2024 Future Appointments Date Time Provider Department Center 06/05/2024 4:00 PM Elkin Garcia MD [facility]TH [facility] * Mihaela Galvan MD - 05/15/2024 6:41 AM EDT Images from the original note were not included. [facility] Medicine - Red Team Inpatient [...] Procedure Component Value - Date/Time Tissue culture [[id number]] (Abnormal) Collected: 05/14/24 1133 Lab Status: Preliminary result Specimen: Toe Updated: 05/14/24 1459 Gram Stain -- Few Neutrophils seen Rare Gram Positive Cocci in pairs seen Results called to and read back by Dr. Mihaela Galvan 05/14/24 14:57:00 Organism Gram Positive Cocci in pairs Blood culture [[id number]] Collected: 05/10/24 0232 Lab Status: Preliminary result Specimen: Blood from Hand, Right Updated: 05/14/24 0701 Blood Culture No growth at 4 days. Skin/Superficial Wound Culture Toe [[id number]] (Abnormal) Collected: 05/10/24 0256 Lab Status: Final [...] PGY-1, Internal Medicine Red Team - Pager [phone] Associated attestation - Treva Diaz MD - [...] of two midnights or is on the [facility] inpatient only procedure list (status C) [...] Center 06/05/2024 4:00 PM Elkin Garcia MD [facility] * Savannah Sy RN - 05/14/2024 1:45 [...] Center 06/05/2024 4:00 PM Elkin Garcia MD [facility] * Mihaela Galvan MD - 05/14/2024 6:04 AM EDT [facility] Medicine - Red Team Inpatient [...] to display. Interval History: - [facility], continued on zosyn for GPC and [...] PGY-1, Internal Medicine Red Team - Pager [phone] Associated attestation - Treva Diaz MD - [...] OR for the above procedure. Please page [phone] if there are any concerns regarding OR [...] Galvan MD - 05/13/2024 6:28 AM EDT [facility] Medicine - Red Team Inpatient [...] PGY-1, Internal Medicine Red Team - Pager [phone] Associated attestation - Treva Diaz MD - [...] of two midnights or is on the [facility] inpatient only procedure list (status C) due to: RLE cellulitis with concern forosteomyelitis. Continue on iv antibiotics and follow up with orthopedics regarding any surgical debridement . * Sarwat Marti - 05/12/2024 2:20 PM EDT Pe Teacher Encounter Note Patient Name: Jossy Shanks : [id number] MR#: [id number] Admit Date: 05/10/2024 2:12 AM Hospital Day 2 days Narrative:Visited to introduce and assess acceptance of Pe Teacher services. Patient was sleeping and I will visit an other time. Assessment: Intervention and Outcome: Follow-up: Time in Direct Care: Sarwat Marti 05/12/2024 * Mihaela Galvan MD - 05/12/2024 6:36 AM EDT [facility] Medicine - Red Team Inpatient [...] PGY-1, Internal Medicine Red Team - Pager [phone] Associated attestation - Treva Diaz MD - [...] of two midnights or is on the [facility] inpatient only procedure list (status C) due to: RLE cellulitis with concern forosteomyelitis. Continue on iv antibiotics and discuss with orthopedics regarding any urgent need for surgical debridement. * Rodriguez Tian MD - 05/11/2024 10:23 AM EDT MEDICINE PAGER [phone] - [facility] Daily Progress Note Admit Date: 05/10/2024 Encounter [...] controlled Afib (Xarelto, dilt, coreg), admitted to [facility] on 05/10/2024 with LE cellulitis 2/2 right [...] CHO counting level 2 Last BM documented: (SCOUTS) DVT Prophylaxis: Heparin DOAC Code Status: Attempt [...] of two midnights or is on the [facility] inpatient only procedure list (status C) [...] presented to a local emergency [facility] yesterday ([id number] birthday) due to ongoing wound issues and [...] minimumof two midnights or is on the [facility] inpatient only procedure list (status C) [...] on Lasix, HTN on Losartan,who presented to [facility] for rt LE cellulitis, transferred to [facility] for septic shock. Interval Events: - lactate [...] 05/10/2024 2:37 AM) Result Value WORKSTATION ID [id number] Impression Bibasilar atelectasis. Thank you for letting us participate in the care of this patient. If you are a health care provider and have any questions regarding this report, please contact the number below. For patients who have questions please contact the health healthcare facility administrator that requested your imaging first. Electronically signed by: Yenni Ca MD, [facility] ([phone]), at 05/10/2024 3:27 AM MRI foot pending - may need leg MRI [...] Thomas MD - 05/10/2024 2:56 AM EDT [facility] TeleICU Initial Assessment Note I established audio/visual [...] hour(s)) Lactate, whole blood, send to lab ([facility] Result Value Lactate WB 2.3 (H) Prothrombin [...] infection if clinical appearance is worrisome -Awaiting [facility] admission K+ level and Chem 7 -Would [...] indication: Osteomyelitis, central venous access required for assisted antibiotic use IR workflow: Procedure request received through Interventional Radiology eDH order queue. There are no answered order specific questions. History of Present Illness: Per chart review, Jossy Shanks is a 69 y.o. male with PMH of CKD, DM,COPD, A.fib, admitted for RLE cellulitis and osteomyelitis s/p 2ng toe amputation requiring assisted IV antibiotic administration who presents to Interventional [...] medical record. IR History: None listed at [facility] Anticoagulation/Antiplatelet: None listed Labs: Lab Results Component [...] Assessment: 69 y.o. 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 There are no answered order specific questions. History of Present Illness: Per chart review, Jossy Shanks is a 69 y.o. 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 IR History: None listed at [facility] Anticoagulation/Antiplatelet: None listed Labs: Lab Results Component [...] Assessment: 69 y.o. male with OM requiring assisted IV ABX presenting to Interventional Radiology for [...] 6.64) performed by Elkin Garcia MD at [facility] MAIN OR Social History and Habits: Social [...] amputation. Isra Rodriguez IV, DO Orthopaedic Surgery [facility] * Carlotta Davis MD - 05/10/2024 [...] on home oxygen, HFpEF, HTN, admitted to [facility] on 05/10/2024, now on Hospital Day #0, for RLE cellulitis SUBJECTIVE History of Present Illness: Per admitting provider Jossy Shanks is a 69 y.o. year old male with PMH significant for IDDM, Afib rate controlled, CKD (bsl cr 1.5), COPD not on home oxygen, HFpEF, HTN who presented to [facility] for rt LE cellulitis, transferred to [facility] for RLE cellulitis after trauma to his [...] knee. Fevers & chills for last 24hrs. [place] lightheaded, weak, & couldn't get out of [...] prior to OSH departure. On arrival to [facility]: HR 96, o2 sat mid 90s on [...] limbs -chronic Motor Exam: Upper Limb Bilateral: Business Trainer Strength 5/5 Wrist Flexion/Extension 5/5 Elbow Flexion/Extension [...] in the last 7068 hours. Invalid input(s): [id number] Recent Labs 05/10/24219 HA1C 5.9* Lipids: Heme: No results for input(s): LDH, HAPTOGLOBIN, URICACID in the last 168 hours. ABG (Arterial Blood Gas): No results found for: PHART, PO2ART, UHP4XKE, QHH8QIP VBG (Venous Blood Gas): No results for input(s): PHVEN, IWB0VOD, PO2VEN, JRL9ZIN, BEVEN, OLJ1ANI in the last 72hours. EKG: No results [...] 05/10/2024 2:37 AM) Result Value WORKSTATION ID [id number] Impression Bibasilar atelectasis. Thank you for letting us participate in the care of this patient. If you are a health care provider and have any questions regarding this report, please contact the number below. For patients who have questions please contact the health healthcare facility administrator that requested your imaging first. Electronically signed by: Yenni Ca MD, [facility] ([phone]), at 05/10/2024 3:27 AM MRI Foot wwo Contrast Right (Exam End: 05/10/2024 5:51 AM) Result Value WORKSTATION ID [id number] Impression 1. Soft tissue irregularity of the [...] who have questions please contact the health healthcare facility administrator that requested your imaging first. Electronically signed by: Trinidad Mota MD, [facility] ([phone]), at 05/10/2024 12:56 PM Medications: Scheduled: [START ON 05/11/2024] dilTIAZem 60 mg Oral Q6H [facility] heparin (porcine) 7,500 Units Subcutaneous Q8H VLAD [...] controlled Afib (Xarelto, dilt, coreg), admitted to [facility] on 05/10/2024, now on Hospital Day #0, [...] Internal Medicine PGY2 Medicine Team: Rigo, Pager #[phone] Associated attestation - Treva Diaz MD - [...] home oxygen, HFpEF, HTN who presented to [facility] for rt LE cellulitis, transferred to [facility] for septic shock. Reports end of March [...] knee. Fevers & chills for last 24hrs. [place] lightheaded, weak, & couldn't get out of [...] prior to OSH departure. On arrival to [facility]: HR 96, o2 sat mid 90s on [...] mobilizes w/out assistance. Darion Morgan is DPOA; [phone] Physical Exam: Vitals: Last value Range last [...] Anita Camacho MD Internal Medicine, PGY2 05/10/2024 [facility] Blue Team Pager #[phone] documented in this encounter Procedure Notes * Juan José Flowers MD - 05/21/2024 11:49 AM EDT IR PROCEDURE NOTE Procedure: Tunneled central venous catheter placement. Indication for Procedure: Per Allyn MIMS, Jossy Shanks is a 69 y.o. 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 Needs for Transition of Care: Plan for discharge is: Nursing Home Facility / Swing OPAT Orders: ID Consult Ordered Agency Referrals & Follow-up Care: Contact [facility] [address] [place] [address] Transportation: family or friend will provide Wheelchair [...] through: Primary Insurance: [employer]AR MANAGED MEDICARE Payor: [facility] MANAGED MEDICARE / Plan: [facility] MANAGED MEDICARE COMPLETE / Product Type: *No Product type* / Secondary Insurance: N/A Prescription Coverage: Yes This plan was formulated with input from patient and team. All are in agreement with plan. Shirley Samuel RN CM Agency Recruiter- Medicine Office of Care Management Ext: [phone] Pager: [phone] * Plan of Care - Juan José [...] Fall Risk Flowsheets (Taken 05/22/2024802 by Trice Zhao RN) Safety Promotion/Fall Prevention: activity supervised assistive device/personal items within reach clutter free environment maintained fall prevention program maintained lighting adjusted mobility aid in reach nonskid shoes/slippers when out of bed room organization consistent safety round/check completed Intervention: Prevent Skin Injury Flowsheets (Taken 05/22/2024 08 by Trice Zaho, RN) Body Position: weight shifting Intervention: Prevent and Manage VTE (Venous Thromboembolism) Risk Flowsheets (Taken 05/22/2024802 by Trice Zhao, RN) VTE Prevention/Management: anticoagulant therapy Intervention: Prevent Infection Flowsheets (Taken 05/22/2024802 by rTice Zhao, RN) Infection Prevention: environmental surveillance performed [...] and were able to stop the bleeding. Study Hall Supervisor carolyn a hemoglobin when patient got back [...] Operative Note Patient Name: Jossy Shanks : [id number] MR#: [id number] Case Date: 05/22/2024 Surgeon: Surgeons and Role: [...] Access Non-Dialysis 05/21/2024 Juan José Flowers MD [facility] INTERVENTIONL RAD PRO AMPUTATION METATARSAL+TOE, SINGLE Right 05/14/2024 AMPUTATION, TRANSMETATARSAL TOE, ONE TOE (WRVU 6.64) performed by Elkin Garcia MD at [facility] MAIN OR SOCIAL HX: Social History Socioeconomic [...] IMAGING: Reports and images personally reviewed in [facility]. Images independently interpreted. IR Tunneled Central Venous [...] signed by: Teofilo Ruiz MD, [facility] ([phone]), at 05/20/2024 11:30 AM Thank you for letting us participate in the care of this patient. If you are a health care provider and have any questions regarding this report, please contact the number above. For patients who have questions, please contact the health healthcare facility administrator that requested your imaging first. Teofilo Ruiz, [...] who have questions please contact the health healthcare facility administrator that requested your imaging first. Electronically signed by: Trinidad Mota MD, [facility] ([phone]), at 05/10/2024 12:56 PM XR Chest One View Final Result Bibasilar atelectasis. Thank you for letting us participate in the care of this patient. If you are a health care provider and have any questions regarding this report, please contact the number below. For patients who have questions please contact the health healthcare facility administrator that requested your imaging first. Electronically signed by: Yenni Ca MD, [facility] ([phone]), at 05/10/2024 3:27 AM ENDOSCOPY: Reports and images personally reviewed in eDH [...] anticoagulation and significant anemia. Tl Steele MD [facility] Gastroenterology * Plan of Care - Pretty [...] Pain Flowsheets (Taken 05/20/2024802) Pain Management Interventions: fltlve-mcn-vnjjf dosing utilized breathing exercises care clustered diversional [...] Physical Therapy Recommendation: swing bed rehabilitation facility, snf facility with to be determined Last Occupational Therapy Recommendation: snf facility, swing bed rehabilitation facility with to be determined Plan for discharge is: Nursing Home Facility / Swing Outpatient Agency/Support Group Needs: Homecare agency OPAT Orders: ID Consult Ordered Location: Home Home Health Services: IV Therapy Agency Referrals: Based on discussions with the multi-disciplinary healthcare team, the patient would benefit from SNF level of care at discharge. I have met with the patient to: discuss discharge planning needs. provide the [facility], Office of Care Management letter from the Therapy Administrative Assistant pertaining to rehab referrals. provide a letter describing our affiliations within the [facility] and educate about their right to choose where referrals are sent. provide the CMS Star Quality Rating handout. review the different levels of rehab including SNF, swing, and acute. provide a list of facilities within their preferred geographic area. request that they provide at least three choices for referral. They have requested referrals to: [facility] ([place]) [address] [place] [address] [facility] [address] [place] [id number] -OFFERED BED, PENDING INSURANCE AUTHORIZATION 05/20 [address] [facility] [address] [place] [address] [facility] [address] [place] [address] [facility] ([facility]) [address] [place] [address] (Accepts pts only after exhausting all other local SNF options) Does patient have COVID vaccine card: Yes; Copy obtained: No Note routed to a Grades 1 Thru 5 Teacher who will communicate referrals to facilities and provide any required information. Transportation: family or friend will provide Barriers to discharge: Discharge planning Plan going forward: Referrals routed for SNF/Swing. Care Management will continue to follow and assist with discharge planning and coordination of care as indicated. Anticipated Date of Discharge: 05/21/2024 Shirley Samuel RN CM Agency Recruiter- Medicine Office of Care Management Ext: [phone] Pager: [phone] * Plan of Care - Pretty Ramirez [...] shock at his time of transfer to [facility]. Creatinine on admission was 3.94 mg/dL, [...] 6.64) performed by Elkin Garcia MD at [facility] MAIN OR insulin glargine-ygfn (Semglee) (100 unit/mL) [...] Flowsheets (Taken 05/18/2024 0838) Pain Management Interventions: lsnlzg-bgk-hdaec dosing utilized care clustered diversional activity provided [...] television Taken 05/15/2024 1825 Pain Management Interventions: ffrbnb-idl-klrlh dosing utilized position adjusted pillow support provided [...] and Manage Fall Risk Flowsheets (Taken 05/16/2024 9521) Safety Promotion/Fall Prevention: activity supervised clutter free [...] smartphone Taken 05/15/2024 1825 Pain Management Interventions: lpnwha-noe-oquep dosing utilized position adjusted pillow support provided [...] 6.64) performed by Elkin Garcia MD at [facility] MAIN OR Active Non-Hospital Problems Diagnosis Degenerative [...] Perception: WNL / WFL and corrective lenses campaign analyst Communication: WFL Range of motion, strength, coordination: [...] planning. Total Minutes, Occupational Therapy: 90 (evaluation ([id number])) 2017 OT Evaluation Code Rationale: Diagnosis & [...] and measurable assessment of functional outcome. Pager: [phone] Penny Rodriguez OT 05/16/2024 Occupational Therapy Rehabilitation [...] have. Alternately, during off-hours you may call [phone] to contact a pharmacist. * Consult Note [...] Goal: Patient-Specific Goal (Individualized) 05/15/20241128 by Evelyn Parkash RN Outcome: Ongoing (Interventions Implemented as Appropriate) [...] briefly on vasopressors, and then transferred to [facility] for further management. 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 05/14. Reports a hx of cellulitis in the Left leg back in 2009 for which he states he did a course of 6 week son IV abx from [facility]. Has gotten cellulitis about half a dozen times in total. Review of Systems: Pertinent positives and negatives noted in HPI. 14 point ROS otherwise negative except noted in HPI. 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 Tissue culture [[id number]] (Abnormal) Collected: 05/14/24 1133 Lab Status: Preliminary result Specimen: Toe Updated: 05/14/24 1459 Gram Stain -- Few Neutrophils seen Rare Gram Positive Cocci in pairs seen Results called to and read back by Dr. Mihaela Galvan 05/14/24 14:57:00 Organism Gram Positive Cocci in pairs Skin/Superficial Wound Culture Toe [[id number]] (Abnormal) Collected: 05/10/24 0256 Lab Status: Final [...] follow. Please page ID Red team (pager [phone]) with questions or concerns. Emmanuel Corey, DO Internal Medicine PGY-2 Pager: [phone] Epic Chat 05/15/2024 Associated attestation - Rodriguez [...] MEDICARE Payor: [employer] MANAGED MEDICARE / Plan: [employer] [facility] MANAGED MEDICARE COMPLETE / Product Type: *No Product type* / Secondary Insurance: N/A Last Physical Therapy Recommendation: with Last Occupational Therapy Recommendation: with Plan for discharge is: Home w/ Services Outpatient Agency/Support Group Needs: Homecare agency OPAT Orders: ID Consult Ordered Location: Home Home Health Services: IV Therapy Agency Referrals: [place] [address] or Home Care Orders: 1. IV Antibiotics: [...] to discharge: Discharge planning Plan going forward: [facility] routed and pended. [facility] routed. Care Management will continue to follow and assist with discharge planning and coordination of care as indicated. Anticipated Date of Discharge: 05/19/2024 Shirley Samuel RN CM Agency Recruiter- Medicine Office of Care Management Ext: [phone] Pager: [phone] * Plan of Care - Christine Ronquillo [...] Operative Note Patient Name: Jossy Shanks : [id number] MR#: [id number] Case Date: 05/14/2024 Surgeon: Surgeons and Role: [...] Garcia MD - 05/14/2024 11:16 AM EDT [facility] Operative Note Patient Name: Jossy Shanks : [id number] MR#: [id number] Case Date: 05/14/2024 Surgeon: Surgeons and Role: [...] can weight-bear as tolerated and heel off box car loader We will follow his wounds while he is here in the hospital. Surgical Infection Prevention Bundle Used? N/A Attestation: Case Date: 05/14/2024 I was present and I participated during the entire procedure (does not need to include opening and closing). Elkin Garcia MD 05/14/2024 * Consult Note - Hakeem Villa, [facility] - 05/14/2024 7:15 AM EDT [facility] Pharmacokinetics Note Drug: Vancomycin Pharmacokinetic target: AUC24 (range) 400-600 mg/L.hr Jossy Shanks is a 69-year-old male receiving intermittent Vancomycin doses Recent measured serum creatinine values: 05/14/2024 05:01 1.56 mg/dL 05/13/2024 05:29 1.53 mg/dL 05/12/2024 04:45 2.03 mg/dL Assessment: Analysis of the most recent level(s) using [employer] gives the following patient-specific pharmacokinetic parameters: CL: [...] controlled Afib (Xarelto, dilt, coreg), admitted to [facility] on 05/10/2024 with LE cellulitis 2/2 right foot trauma. Reason for intervention: Diet order question - what type of carb control diet does pt need? Nutrition Recommendations: Carb control level 3 diet Monitor po intake Monitor blood glucose levels Monitor weight trends I was able to discuss plan with provider Medicine Pager Red [phone] . Nutrition consult received regarding what type of carb control diet pt needs. Estimated nutrition needs based on ideal body weight of 89kg: Calories: 1277-8916 calories (20-25kcal/kg) Protein: 89-107g (1-1.2g/kg) Nutrition to [...] border dressing. (Melgisorb Ag 6x6 PS # [id number]) (Melgisorb Ag 4x4 PS # [id number]) Sacrum/ischium: open to air, utilize Z-guard if patient begins to have breakdown Supplies left at the bedside: 1 sheet of Melgisorb Ag, wound cleanser Wound Care will complete the consult at this time. If there are further issues please re-consult via eD-H. Discussed plan with: RN: Don Please contact Keeley Russell RN on eDH secure chat or the wound care team on pager [phone] with skin and wound care concerns or [...] Son CONRADO Any patient receiving care in [place] must abide by [place] law. The hierarchy [...] (i) The agent with financial power of air press operator or a conservator appointed in accordance with [...] Current DME: none Home Address listed as: [address] [place] [address] Pt is not currently residing here. Current address is as below: [facility] [address] [place], [place] [id number] Social & Family Supports: All names listed below confirmed with patient as current and correct Extended Emergency Contact Information Primary Emergency Contact: RimmaEddie Mobile Relation: Son/[id number] Secondary Emergency Contact: Gifty Bucio [facility] Relation: Mother Current Care Provided by: [...] Pertinent/Service Specific Information: Health/Prescription Coverage: Primary Insurance: [employer] OOS Payor: [employer] OOS / Plan: [facility] NATIONAL OOS PPO / Product Type: *No Product type* / Secondary Insurance: N/A ; Prescription Coverage: Yes Preferred Pharmacy: [id number] - [place], [place] - [address] [place] [address] [address] [facility] [address] [facility] [address] Primary Care Provider listed: None None Pt [place] PCP [place] Patient/Caregiver Goals of Treatment: Potential Needs for Transition of Care: none, home health care Agency Referrals: I have met with the patient to: discuss discharge planning needs. provide the [facility], Office of Care Management letter from the Therapy Administrative Assistant pertaining to rehab referrals. provide a letter describing our affiliations within the [facility] and educate about their right to choose where referrals are sent. provide a list of Home Health Agencies / Durable Medical Equipment vendors which serve their preferred geographic area. provided patient with [facility] Star Quality Rating handout. They have requested referrals to: [facility] [address] [place] [address] Note routed to a Grades 1 Thru 5 Teacher who will communicate referrals to facilities and [...] wait list for housing (an apartment) in [place], [place]; ETA for move-in is 4-8weeks. He does not feel that his local family members would be able to house him in the interim andexpresses that he is comfortable in his camper, which has amenities. He is fully independent at baseline but has used [facility] health in the past; a referral [...] Clinical Pharmacist Note - VancFD Jossy Shanks [id number] 1955 Jossy Shanks is a 69 y.o. [...] Alternately, during off-hours (9p-7a) you may call [phone] to contact a pharmacist. Rodriguez Sinclair RPH [...] intact shoulder abduction, elbow flexion/extension, wrist flexion/extension, reaming machine operator for plastic, EPL, AIN, IO Brisk capillary refill distally [...] intact shoulder abduction, elbow flexion/extension, wrist flexion/extension, reaming machine operator for plastic, EPL, AIN, IO Brisk capillary refill distally [...] changes develop in his course. Please page [phone] following completion of requestedimaging and studies. - [...] 10:30 AM EDT [place] [address] Elkin Garcia MD [facility] [place] [address] Scheduled Referrals Name Type Priority Associated Diagnoses [...] EDT Upper Gi Endoscopy, W/Dir Submuc Inj ([id number]) 05/22/2024 4:39 PM EDT ? melena Upper Gi Endoscopy, Ctrl Bleed ([id number]) 05/22/2024 4:39 PM EDT ? melena Upper GI Endoscopy, Diagnostic ([id number]) 05/22/2024 4:39 PM EDT ? 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 Blood CAPILLARY BLOOD / Unknown 05/23/2024 12:32 PM EDT 05/23/2024 12:32 PM EDT Saba Spears MD POINT OF CARE TEST ORDERABLES [facility] [place] [address] * (ABNORMAL) Basic Metabolic Panel (05/23/2024 9:46 AM EDT) Glucose 142 65 - 199 mg/dL 05/23/2024 11:27 AM EDT [facility] Comment:Glucose Concentratio n >=200 mg/dL plus symptoms is consistent with Diabetes Mellitus. Blood Urea Nitrogen 83(H) 10 - 20 mg/dL 05/23/2024 11:27 AM [facility] Creatinine 2.64(H) 0.80 - 1.50 mg/dL 05/23/2024 11:27 AM [facility] Sodium 140 135 - 145 mMol/L 05/23/2024 11:27 AM [facility] Potassium 5.2(H) 3.5 - 5.0 mMol/L 05/23/2024 11:27 AM [facility] Chloride 111(H) 98 - 107 mMol/L 05/23/2024 11:27 AM [facility] Carbon Dioxide 20(L) 22 - 31 mMol/L 05/23/2024 11:27 AM [facility] Anion Gap 9 5 - 15 mMol/L 05/23/2024 11:27 AM [facility] Calcium 9.3 8.5 - 10.5 mg/dL 05/23/2024 11:27 AM [facility] Est Glomerular Filtration Rate - Male 25 mL/min/1. 73 m?? 05/23/2024 11:27 AM [facility] Comment: This patient's estimated [...] EDT Saba Spears MD CHEMISTRY ORDERABLE S [facility] [place] [address] * (ABNORMAL) CBC (with Diff) (05/23/2024 9:46 AM EDT) White Blood Cell 12.66(H) 4.00 - 9.50 x10(3)/mc L 05/23/2024 10:52 AM EDT [facility] Red Blood Cell 2.56(L) 4.58 - 5.54 x10(6)/mc L 05/23/2024 10:52 AM EDT [facility] Hemoglobin 7.7(L) 13.7 - 16.5 g/dL 05/23/2024 10:52 AM [facility] Hematocrit 24.3(L) 40.5 - 48.5 % 05/23/2024 10:52 AM [facility] Mean Cell Volume 94.9(H) 82.9 - 93.1 fL 05/23/2024 10:52 AM [facility] Mean Cell Hemoglobin 30.1 27.5 - 32.1 pg 05/23/2024 10:52 AM [facility] Mean Cell Hemoglobin Concentration 31.7(L) 32.0 - 35.7 g/dL 05/23/2024 10:52 AM [facility] Platelet 370(H) 145 - 357 x10(3)/mc L 05/23/2024 10:52 AM [facility] Mean Platelet Volume 11.6 7.6 - 12.9 fL 05/23/2024 10:52 AM [facility] RDW Standard Deviation 57.1(H) 36.0 - 45.0 fL 05/23/2024 10:52 AM [facility] RDW coefficient of variation 16.9(H) 11.4 - 13.8 % 05/23/2024 10:52 AM [facility] NRBC% auto 0.0 % 05/23/2024 10:52 AM [facility] NRBC Absolute 0.00 0.00 - 0.00 x10(3)/mc L 05/23/2024 10:52 AM [facility] Neutrophil % 81.6 % 05/23/2024 10:52 AM [facility] Neutrophil Absolute 10.34(H) 1.70 - 6.10 x10(3)/mc L 05/23/2024 10:52 AM [facility] Lymph % 5.1 % 05/23/2024 10:52 AM [facility] Lymph Absolute 0.64(L) 0.90 - 3.20 x10(3)/mc L 05/23/2024 10:52 AM [facility] Monocyte % 10.7 % 05/23/2024 10:52 AM [facility] Monocyte Absolute 1.35(H) 0.30 - 0.90 x10(3)/mc L 05/23/2024 10:52 AM [facility] Eos % 1.7 % 05/23/2024 10:52 AM [facility] Eos Absolute 0.22 0.00 - 0.40 x10(3)/mc L 05/23/2024 10:52 AM [facility] Basophil % 0.3 % 05/23/2024 10:52 AM [facility] Baso Absolute 0.04 0.00 - 0.10 x10(3)/mc L 05/23/2024 10:52 AM [facility] Immature Gran % 0.6 % 10:52 AM [facility] Immature Gran Absolute 0.07(H) 0.00 - 0.04 x10(3)/mc L 05/23/2024 10:52 AM [facility] Blood VENOUS BLOOD SPECIMEN / Unknown IP Care Team Draw / Unknown 05/23/2024 9:46 AM EDT 05/23/2024 10:01 AM EDT Saba Spears MD HEMATOLOGY ORDERABL ES Performing Organization Address City/[facility] Co de Phone Number [facility] [place] [address] * POC, GLUCOSE (05/23/2024 7:44 AM EDT) Glucometer, POC 127 65 - 199 mg/dL 05/23/2024 7:44 AM EDT [facility] Comment:Supplemental ranges: <140 mg/dL before meals <180 mg/dL all other times of the day. Blood CAPILLARY BLOOD / Unknown 05/23/2024 7:44 AM EDT 05/23/2024 7:45 AM EDT Saba Spears MD POINT OF CARE TEST ORDERABLES Performing Organization Address [facility] Co de Phone Number [facility] [place] [place] [address] * Prepare RBC (05/23/2024 3:49 AM EDT) Status Information Transfused [facility] Product Identification RBC [facility] Unit [facility] [id number] [facility] Product [facility] [id number] [facility] Unit Blood Type OPOS [facility] Specimen Expiration Date [id number] [facility] Volulme 350 [facility] Issue Date / Time [id number] [facility] Blood 05/22/2024 12: 42 PM EDT Saba Spears MD BLOOD BANK PRODUCT ORDERABLES Performing Organization Address City/[facility]/ZIP Co de Phone Number [facility] [place] [address] * POC, GLUCOSE (05/23/2024 3:49 AM EDT) Glucometer, POC 152 65 - 199 mg/dL 05/23/2024 3:49 AM EDT [facility] Comment:Supplemental ranges: <140 mg/dL before meals <180 mg/dL all other times of the day. Blood CAPILLARY BLOOD / Unknown 05/23/2024 3:49 AM EDT 05/23/2024 3:49 AM EDT Saba Spears MD POINT OF CARE TEST ORDERABLES Performing Organization Address [facility] Co de Phone Number [facility] [place] [address] * POC, GLUCOSE (05/23/2024 1:26 AM EDT) Glucometer, POC 138 65 - 199 mg/dL 05/23/2024 1:26 AM EDT [facility] Comment:Supplemental ranges: <140 mg/dL before meals <180 mg/dL all other times of the day. Blood CAPILLARY BLOOD / Unknown 05/23/2024 1:26 AM EDT 05/23/2024 1:26 AM EDT Saba Spears MD POINT OF CARE TEST ORDERABLES Performing Organization Address City/[facility] Co de Phone Number [facility] [place] [address] * (ABNORMAL) Scan, Peripheral Blood (05/23/2024 1:19 AM EDT) RBC Morphology Abnormal 05/23/2024 3:44 AM EDT [facility] Platelet Estimate Increased(A) Normal 05/23/2024 3:44 AM EDT [facility] Ovalocytes 1-5 /HPF 05/23/2024 3:44 AM EDT [facility] [place] cells 1-5 /HPF 05/23/2024 3:44 AM EDT [facility] Blood VENOUS BLOOD SPECIMEN / Unknown IP Care Team Draw / Unknown 05/23/2024 1:19 AM EDT 05/23/2024 2:05 AM EDT Mary De La Fuente MD HEMATOLOGY ORDERAB LES Performing Organization Address [facility] Co de Phone Number [facility] [place] [address] * Magnesium (05/23/2024 1:19 AM EDT) Magnesium 0.86 0.69 - 1.07 mMol/L 05/23/2024 2:40 AM EDT [facility] Blood VENOUS BLOOD SPECIMEN / Unknown IP Care Team Draw / Unknown 05/23/2024 1:19 AM EDT 05/23/2024 2:05 AM EDT Mary De La Fuente MD CHEMISTRY ORDERABL ES Performing Organization Address [facility] Co de Phone Number [facility] [place] [address] * (ABNORMAL) Phosphorus (05/23/2024 1:19 AM EDT) Phosphorus 5.8(H) 2.5 - 4.5 mg/dL 05/23/2024 2:40 AM EDT [facility] Blood VENOUS BLOOD SPECIMEN / Unknown IP Care Team Draw / Unknown 05/23/2024 1:19 AM EDT 05/23/2024 2:05 AM EDT Mary De La Fuente MD CHEMISTRY ORDERABL ES Performing Organization Address [facility] Co de Phone Number [facility] [place] [address] * (ABNORMAL) Basic Metabolic Panel (non-fasting) (05/23/2024 1:19 AM EDT) Glucose 158 65 - 199 mg/dL 05/23/2024 3:34 AM EDT [facility] Comment:Glucose Concentratio n >=200 mg/dL plus symptoms is consistent with Diabetes Mellitus. Blood Urea Nitrogen 85(H) 10 - 20 mg/dL 05/23/2024 3:34 AM EDT [facility] Creatinine 2.70(H) 0.80 - 1.50 mg/dL 05/23/2024 3:34 AM EDT [facility] Sodium 139 135 - 145 mMol/L 05/23/2024 3:34 AM [facility] Potassium 4.9 3.5 - 5.0 mMol/L 05/23/2024 3:34 AM [facility] Chloride 108(H) 98 - 107 mMol/L 05/23/2024 3:34 AM [facility] Carbon Dioxide 20(L) 22 - 31 mMol/L 05/23/2024 3:34 AM [facility] Anion Gap 11 5 - 15 mMol/L 05/23/2024 3:34 AM [facility] Calcium 9.1 8.5 - 10.5 mg/dL 05/23/2024 3:34 AM [facility] Est Glomerular Filtration Rate - Male 25 mL/min/1. 73 m?? 05/23/2024 3:34 AM [facility] Comment: This patient's estimated [...] Foundation Fasting Status 05/23/2024 3:34 AM T [facility] Blood VENOUS BLOOD SPECIMEN / Unknown IP Care Team Draw / Unknown 05/23/2024 1:19 AM EDT 05/23/2024 2:05 AM EDT Mary De La Fuente MD CHEMISTRY ORDERABL ES [facility] [place] [address] * (ABNORMAL) CBC (with Diff) (05/23/2024 1:19 AM EDT) [facility] White Blood Cell 12.66(H) 4.00 - 9.50 x10(3)/mc L 05/23/2024 3:44 AM [facility] Red Blood Cell 2.61(L) 4.58 - 5.54 x10(6)/mc L 05/23/2024 3:44 AM [facility] Hemoglobin 7.8(L) 13.7 - 16.5 g/dL 05/23/2024 3:44 AM [facility] Hematocrit 24.3(L) 40.5 - 48.5 % 05/23/2024 3:44 AM [facility] Mean Cell Volume 93.1 82.9 - 93.1 fL 05/23/2024 3:44 AM [facility] Mean Cell Hemoglobin 29.9 27.5 - 32.1 pg 05/23/2024 3:44 AM [facility] Mean Cell Hemoglobin Concentration 32.1 32.0 - 35.7 g/dL 05/23/2024 3:44 AM [facility] Platelet 381(H) 145 - 357 x10(3)/mc L 05/23/2024 3:44 AM [facility] Mean Platelet Volume 11.4 7.6 - 12.9 fL 05/23/2024 3:44 AM [facility] RDW Standard Deviation 55.1(H) 36.0 - 45.0 fL 05/23/2024 3:44 AM [facility] RDW coefficient of variation 16.5(H) 11.4 - 13.8 % 05/23/2024 3:44 AM [facility] NRBC% auto 0.0 % 05/23/2024 3:44 AM [facility] NRBC Absolute 0.00 0.00 - 0.00 x10(3)/mc L 05/23/2024 3:44 AM [facility] Neutrophil % 79.4 % 05/23/2024 3:44 AM [facility] Comment:This is an appended report. These results have been appended to a previously preliminary verified report. Neutrophil Absolute 10.06(H) 1.70 - 6.10 x10(3)/mc L 05/23/2024 3:44 AM [facility] Comment:This is an appended report. These results have been appended to a previously preliminary verified report. Lymph % 5.8 % 05/23/2024 3:44 AM [facility] Comment:This is an appended report. These results have been appended to a previously preliminary verified report. Lymph Absolute 0.73(L) 0.90 - 3.20 x10(3)/mc L 05/23/2024 3:44 AM [facility] Comment:This is an appended report. These results have been appended to a previously preliminary verified report. Monocyte % 12.1 % 05/23/2024 3:44 AM [facility] Comment:This is an appended report. These results have been appended to a previously preliminary verified report. Monocyte Absolute 1.53(H) 0.30 - 0.90 x10(3)/mc L 05/23/2024 3:44 AM [facility] Comment:This is an appended report. These results have been appended to a previously preliminary verified report. Eos % 1.9 % 05/23/2024 3:44 AM [facility] Comment:This is an appended report. These results have been appended to a previously preliminary verified report. Eos Absolute 0.24 0.00 - 0.40 x10(3)/mc L 05/23/2024 3:44 AM [facility] Comment:This is an appended report. These results have been appended to a previously preliminary verified report. Basophil % 0.3 % 05/23/2024 3:44 AM [facility] Comment:This is an appended report. These results have been appended to a previously preliminary verified report. Baso Absolute 0.04 0.00 - 0.10 x10(3)/mc L 05/23/2024 3:44 AM EDT [facility] Comment:This is an appended report. These results have been appended to a previously preliminary verified report. Immature Gran % 0.5 % 3:44 AM EDT [facility] Comment:This is an appended report. These results have been appended to a previously preliminary verified report. Immature Gran Absolute 0.06(H) 0.00 - 0.04 x10(3)/mc L 05/23/2024 3:44 AM EDT [facility] Comment:This is an appended report. These results have been appended to a previously preliminary verified report. Blood VENOUS BLOOD SPECIMEN / Unknown IP Care Team Draw / Unknown 05/23/2024 1:19 AM EDT 05/23/2024 2:05 AM EDT Mary De La Fuente MD HEMATOLOGY ORDERAB LES [facility] [place] [address] * POC, GLUCOSE (05/22/2024 8:21 PM EDT) Glucometer, POC 152 65 - 199 mg/dL 05/22/2024 8:21 PM EDT [facility] Comment:Supplemental ranges: <140 mg/dL before meals <180 mg/dL all other times of the day. Blood CAPILLARY BLOOD / Unknown 05/22/2024 8:21 PM EDT 05/22/2024 8:21 PM EDT Saba Spears MD POINT OF CARE TEST ORDERABLES Performing Organization Address City/[facility]/ZIP Co de Phone Number [facility] [place] [address] * POC, GLUCOSE (05/22/2024 6:20 PM EDT) Glucometer, POC 130 65 - 199 mg/dL 05/22/2024 6:20 PM EDT [facility] Comment:Supplemental ranges: <140 mg/dL before meals <180 mg/dL all other times of the day. Blood CAPILLARY BLOOD / Unknown 05/22/2024 6:20 PM EDT 05/22/2024 6:21 PM EDT Saba Spears MD POINT OF CARE TEST ORDERABLES Performing Organization Address [facility]/State/ZIP Co de Phone Number [facility] [place] [address] * Transfuse RBC (05/22/2024 2:45 PM EDT) Saba Spears MD NURSING TREATMENT O RDERABLES - BLOOD ADMIN * UPPER GI ENDOSCOPY (05/22/2024 12:48 PM EDT) [facility] UPPER GI ENDOSCOPY [facility] Endoscopy ___ Procedure Date: 05/22/2024 12:48 PM ? Patient Name: Jossy Shanks ? N: [id number] ? Date of : 1955 ? Age: 69 ? Order #: [id number] ? Instrument Name: [id number] ? ___ Procedure: ? Upper GI endoscopy [...] Recheck Progress Complete 05/22/2024 1:01 PM EDT [facility] BLOOD [facility] LABORATORY Blood VENOUS BLOOD SPECIMEN / Unknown IP Care Team Draw / Unknown 05/22/2024 11:18 AM EDT 05/22/2024 11:27 AM EDT Saba Spears MD BLOOD BANK LAB FADY GAO [facility] [place] [address] * Type and screen ([facility]ARA) (05/22/2024 11:18 AM EDT) Pathologist [facility] ABORH Type O POSITIVE 05/22/2024 12:31 PM EDT [facility] BLOOD BANK LABORATORY PATIENT HISTORY Found 05/22/2024 12:31 PM EDT [facility] BLOOD BANK LABORATORY Expires at [id number] on: 05-22-2024 05/22/2024 12:31 PM EDT [facility] BLOOD BANK LABORATORY ANTIBODY SCREEN AUTOMATED Negative 05/22/2024 12:31 PM EDT [facility] BLOOD BANK LABORAT[facility] T&S only valid at [facility] 05/22/2024 12:31 PM EDT [facility] BLOOD BANK LABORATORY Blood VENOUS BLOOD SPECIMEN / Unknown IP Care Team Draw / Unknown 05/22/2024 11:18 AM EDT 05/22/2024 11:27 AM EDT Narrative [facility] BLOOD BANK LABORATORY - 05/22/2024 12:31 PM EDT This Type and Screen result is only valid at the [facility] Saba Spears MD BLOOD BANK LAB ORDE RABLES [facility] [place] [address] * (ABNORMAL) Hemoglobin and Hematocrit, blood (05/22/2024 11:18 AM EDT) Pathologist [facility] Hemoglobin 6.9(L) 13.7 - 16.5 g/dL 05/22/2024 12:02 PM EDT [facility] Hematocrit 21.4(L) 40.5 - 48.5 % 05/22/2024 12:02 PM EDT [facility] Blood VENOUS BLOOD SPECIMEN / Unknown IP Care Team Draw / Unknown 05/22/2024 11:18 AM EDT 05/22/2024 11:36 AM EDT Saba Spears MD HEMATOLOGY ORDERABL ES [facility] [place] [address] * POC, GLUCOSE (05/22/2024 11:14 AM EDT) Glucometer, POC 126 65 - 199 mg/dL 05/22/2024 11:17 AM EDT [facility] Comment:Supplemental ranges: <140 mg/dL before meals <180 mg/dL all other times of the day. Blood CAPILLARY BLOOD / Unknown 05/22/2024 11:14 AM EDT 05/22/2024 11:18 AM EDT Saba Spears MD POINT OF CARE TEST ORDERABLES Performing Organization Address City/[facility]/ZIP Co de Phone Number [facility] [place] [address] * POC, GLUCOSE (05/22/2024 8:07 AM EDT) Glucometer, POC 132 65 - 199 mg/dL 05/22/2024 8:08 AM EDT [facility] Comment:Supplemental ranges: <140 mg/dL before meals <180 mg/dL all other times of the day. Blood CAPILLARY BLOOD / Unknown 05/22/2024 8:07 AM EDT 05/22/2024 8:08 AM EDT Saba Spears MD POINT OF CARE TEST ORDERABLES [facility] [place] [address] * (ABNORMAL) Hepatic Function Panel (05/22/2024 5:18 AM EDT) Albumin 2.6(L) 3.2 - 5.2 g/dL 05/22/2024 9:50 AM EDT [facility] Aspartate Aminotransferase 18 <=39 unit/L 05/22/2024 9:50 AM EDT [facility] Alanine Aminotransferase 42 0 - 55 unit/L 05/22/2024 9:50 AM EDT [facility] Alkaline Phosphatase 84 40 - 130 unit/L 05/22/2024 9:50 AM EDT [facility] Bilirubin, Total <0.2 <=1.3 mg/dL 05/22/2024 9:50 AM EDT [facility] Bilirubin, Direct <0.2 0.0 - 0.3 mg/dL 05/22/2024 9:50 AM EDT [facility] Protein, Total 6.0(L) 6.1 - 8.0 g/dL 05/22/2024 9:50 AM EDT [facility] Blood VENOUS BLOOD SPECIMEN / Unknown IP Care Team Draw / Unknown 05/22/2024 5:18 AM EDT 05/22/2024 5:45 AM EDT Saba Spears MD CHEMISTRY ORDERABLE S Performing Organization Address City/[facility]/ZIP Co de Phone Number [facility] [place] [address] * Magnesium (05/22/2024 5:18 AM EDT) Magnesium 0.93 0.69 - 1.07 mMol/L 05/22/2024 6:16 AM EDT [facility] Blood VENOUS BLOOD SPECIMEN / Unknown IP Care Team Draw / Unknown 05/22/2024 5:18 AM EDT 05/22/2024 5:45 AM EDT Mary De La Fuente MD CHEMISTRY ORDERABL ES Performing Organization Address City/[facility]/ZIP Co de Phone Number [facility] [place] [address] * (ABNORMAL) Phosphorus (05/22/2024 5:18 AM EDT) Phosphorus 5.8(H) 2.5 - 4.5 mg/dL 05/22/2024 6:16 AM EDT [facility] Blood VENOUS BLOOD SPECIMEN / Unknown IP Care Team Draw / Unknown 05/22/2024 5:18 AM EDT 05/22/2024 5:45 AM EDT Mary De La Fuente MD CHEMISTRY ORDERABL ES [facility] [place] [address] * (ABNORMAL) Basic Metabolic Panel (05/22/2024 5:18 AM EDT) Glucose 121 65 - 199 mg/dL 05/22/2024 6:16 AM T [facility] Comment:Glucose Concentratio n >=200 mg/dL plus symptoms is consistent with Diabetes Mellitus. Blood Urea Nitrogen 97(H) 10 - 20 mg/dL 05/22/2024 6:16 AM [facility] Creatinine 2.77(H) 0.80 - 1.50 mg/dL 05/22/2024 6:16 AM [facility] Sodium 138 135 - 145 mMol/L 05/22/2024 6:16 AM [facility] Potassium 5.1(H) 3.5 - 5.0 mMol/L 05/22/2024 6:16 AM [facility] Chloride 110(H) 98 - 107 mMol/L 05/22/2024 6:16 AM [facility] Carbon Dioxide 20(L) 22 - 31 mMol/L 05/22/2024 6:16 AM [facility] Anion Gap 8 5 - 15 mMol/L 05/22/2024 6:16 AM [facility] Calcium 9.4 8.5 - 10.5 mg/dL 05/22/2024 6:16 AM [facility] Est Glomerular Filtration Rate - Male 24 mL/min/1. 73 m?? 05/22/2024 6:16 AM [facility] Comment: This patient's estimated [...] Fasting Status No 05/22/2024 6:16 AM EDT [facility] Blood VENOUS BLOOD SPECIMEN / Unknown IP Care Team Draw / Unknown 05/22/2024 5:18 AM EDT 05/22/2024 5:45 AM EDT Mary De La Fuente MD CHEMISTRY ORDERABL ES [facility] [place] [address] * (ABNORMAL) CBC (with Diff) (05/22/2024 5:18 AM EDT) White Blood Cell 14.70(H) 4.00 - 9.50 x10(3)/mc L 05/22/2024 5:52 AM [facility] Red Blood Cell 2.37(L) 4.58 - 5.54 x10(6)/mc L 05/22/2024 5:52 AM [facility] Hemoglobin 7.2(L) 13.7 - 16.5 g/dL 05/22/2024 5:52 AM [facility] Hematocrit 22.1(L) 40.5 - 48.5 % 05/22/2024 5:52 [facility] Mean Cell Volume 93.2(H) 82.9 - 93.1 fL 05/22/2024 5:52 AM [facility] Mean Cell Hemoglobin 30.4 27.5 - 32.1 pg 05/22/2024 5:52 AM [facility] Mean Cell Hemoglobin Concentration 32.6 32.0 - 35.7 g/dL 05/22/2024 5:52 AM [facility] Platelet 366(H) 145 - 357 x10(3)/mc L 05/22/2024 5:52 AM [facility] Mean Platelet Volume 10.9 7.6 - 12.9 fL 05/22/2024 5:52 AM [facility] RDW Standard Deviation 54.6(H) 36.0 - 45.0 fL 05/22/2024 5:52 AM [facility] RDW coefficient of variation 16.3(H) 11.4 - 13.8 % 05/22/2024 5:52 AM [facility] NRBC% auto 0.0 % 05/22/2024 5:52 AM [facility] NRBC Absolute 0.00 0.00 - 0.00 x10(3)/mc L 05/22/2024 5:52 AM [facility] Neutrophil % 83.2 % 05/22/2024 5:52 AM [facility] Neutrophil Absolute 12.22(H) 1.70 - 6.10 x10(3)/mc L 05/22/2024 5:52 AM [facility] Lymph % 4.4 % 05/22/2024 5:52 AM [facility] Lymph Absolute 0.65(L) 0.90 - 3.20 x10(3)/mc L 05/22/2024 5:52 AM [facility] Monocyte % 9.7 % 05/22/2024 5:52 AM [facility] Monocyte Absolute 1.43(H) 0.30 - 0.90 x10(3)/mc L 05/22/2024 5:52 AM [facility] Eos % 1.9 % 05/22/2024 5:52 AM [facility] Eos Absolute 0.28 0.00 - 0.40 x10(3)/mc L 05/22/2024 5:52 AM [facility] Basophil % 0.2 % 05/22/2024 5:52 AM [facility] Baso Absolute 0.03 0.00 - 0.10 x10(3)/mc L 05/22/2024 5:52 AM EDT [facility] Immature Gran % 0.6 % 5:52 AM EDT [facility] Immature Gran Absolute 0.09(H) 0.00 - 0.04 x10(3)/mc L 05/22/2024 5:52 AM EDT [facility] Blood VENOUS BLOOD SPECIMEN / Unknown IP Care Team Draw / Unknown 05/22/2024 5:18 AM EDT 05/22/2024 5:45 AM EDT Mary De La Fuente MD HEMATOLOGY ORDERAB LES Performing Organization Address City/[facility]/ZIP Co de Phone Number [facility] [place] [address] * POC, GLUCOSE (05/22/2024 3:50 AM EDT) Glucometer, POC 140 65 - 199 mg/dL 05/22/2024 3:50 AM EDT [facility] Comment:Supplemental ranges: <140 mg/dL before meals <180 mg/dL all other times of the day. Blood CAPILLARY BLOOD / Unknown 05/22/2024 3:50 AM EDT 05/22/2024 3:50 AM EDT Saba Spears MD POINT OF CARE TEST ORDERABLES [facility] [place] [address] * Scan Doc: Lab (05/22/2024 12:00 AM EDT) Narrative 05/22/2024 12:00 AM EDT Ordered by an unspecified provider. Scanning Provider MEDIA MGR SCAN EXT O RDR/RSLT * POC, GLUCOSE (05/21/2024 11:28 PM EDT) Glucometer, POC 174 65 - 199 mg/dL 05/21/2024 11:28 PM EDT [facility] Comment:Supplemental ranges: <140 mg/dL before meals <180 mg/dL all other times of the day. Blood CAPILLARY BLOOD / Unknown 05/21/2024 11:28 PM EDT 05/21/2024 11:28 PM EDT Saba Spears MD POINT OF CARE TEST ORDERABLES Performing Organization Address City/[facility]/ZIP Co de Phone Number [facility] [place] [address] * POC, GLUCOSE (05/21/2024 7:49 PM EDT) Glucometer, POC 161 65 - 199 mg/dL 05/21/2024 7:49 PM EDT [facility] Comment:Supplemental ranges: <140 mg/dL before meals <180 mg/dL all other times of the day. Blood CAPILLARY BLOOD / Unknown 05/21/2024 7:49 PM EDT 05/21/2024 7:49 PM EDT Saba Spears MD POINT OF CARE TEST ORDERABLES Performing Organization Address City/[facility] Co de Phone Number [facility] [place] [address] * POC, GLUCOSE (05/21/2024 5:18 PM EDT) Glucometer, POC 152 65 - 199 mg/dL 05/21/2024 5:18 PM EDT [facility] Comment:Supplemental ranges: <140 mg/dL before meals <180 mg/dL all other times of the day. Blood CAPILLARY BLOOD / Unknown 05/21/2024 5:18 PM EDT 05/21/2024 5:18 PM EDT Saba Spears MD POINT OF CARE TEST ORDERABLES [facility] [place] [address] * (ABNORMAL) Hemogram (05/21/2024 3:00 PM EDT) White Blood Cell 14.25(H) 4.00 - 9.50 x10(3)/mc L 05/21/2024 3:41 PM EDT [facility] Red Blood Cell 2.61(L) 4.58 - 5.54 x10(6)/mc L 05/21/2024 3:41 PM EDT [facility] Hemoglobin 7.8(L) 13.7 - 16.5 g/dL 05/21/2024 3:41 PM [facility] Hematocrit 24.5(L) 40.5 - 48.5 % 05/21/2024 3:41 PM [facility] Mean Cell Volume 93.9(H) 82.9 - 93.1 fL 05/21/2024 3:41 PM [facility] Mean Cell Hemoglobin 29.9 27.5 - 32.1 pg 05/21/2024 3:41 PM [facility] Mean Cell Hemoglobin Concentration 31.8(L) 32.0 - 35.7 g/dL 05/21/2024 3:41 PM [facility] Platelet 456(H) 145 - 357 x10(3)/mc L 05/21/2024 3:41 PM [facility] Mean Platelet Volume 11.1 7.6 - 12.9 fL 05/21/2024 3:41 PM [facility] RDW Standard Deviation 55.2(H) 36.0 - 45.0 fL 05/21/2024 3:41 PM [facility] RDW coefficient of variation 16.1(H) 11.4 - 13.8 % 05/21/2024 3:41 PM [facility] NRBC% auto 0.0 % 05/21/2024 3:41 PM [facility] NRBC Absolute 0.00 0.00 - 0.00 x10(3)/mc L 05/21/2024 3:41 PM EDT [facility] Blood VENOUS BLOOD SPECIMEN / Unknown IP Care Team Draw / Unknown 05/21/2024 3:00 PM EDT 05/21/2024 3:36 PM EDT Saba Spears MD HEMATOLOGY ORDERABL ES Performing Organization Address [facility] Co de Phone Number [facility] [place] [address] * POC, GLUCOSE (05/21/2024 12:39 PM EDT) [facility] Signature Glucometer, POC 144 65 - 199 mg/dL 05/21/2024 12:39 PM EDT [facility] Comment:Supplemental ranges: <140 mg/dL before meals <180 mg/dL all other times of the day. 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 ??[address] injection compatible single lumen catheter was [...] * POC, GLUCOSE (05/21/2024 9:12 AM EDT) [facility] Signature Glucometer, POC 144 65 - 199 mg/dL 05/21/2024 9:12 AM EDT [facility] Comment:Supplemental ranges: <140 mg/dL before meals <180 mg/dL all other times of the day. Blood CAPILLARY BLOOD / Unknown 05/21/2024 9:12 AM EDT 05/21/2024 9:12 AM EDT Saba Spears MD POINT OF CARE TEST ORDERABLES Performing Organization Address City/[facility]/ZIP Co de Phone Number [facility] [place] [address] * POC, GLUCOSE (05/21/2024 8:32 AM EDT) Glucometer, POC 135 65 - 199 mg/dL 05/21/2024 8:32 AM EDT [facility] Comment:Supplemental ranges: <140 mg/dL before meals <180 mg/dL all other times of the day. Blood CAPILLARY BLOOD / Unknown 05/21/2024 8:32 AM EDT 05/21/2024 8:32 AM EDT Saba Spears MD POINT OF CARE TEST ORDERABLES Performing Organization Address City/[facility] Co de Phone Number [facility] [address] * (ABNORMAL) Hemogram (05/21/2024 8:27 AM EDT) White Blood Cell 15.77(H) 4.00 - 9.50 x10(3)/mc L 05/21/2024 8:54 AM EDT [facility] Red Blood Cell 2.47(L) 4.58 - 5.54 x10(6)/mc L 05/21/2024 8:54 AM EDT [facility] Hemoglobin 7.5(L) 13.7 - 16.5 g/dL 05/21/2024 8:54 AM EDT [facility] Hematocrit 23.0(L) 40.5 - 48.5 % 05/21/2024 8:54 AM EDT [facility] Mean Cell Volume 93.1 82.9 - 93.1 fL 05/21/2024 8:54 AM EDT [facility] Mean Cell Hemoglobin 30.4 27.5 - 32.1 pg 05/21/2024 8:54 AM EDT [facility] Mean Cell Hemoglobin Concentration 32.6 32.0 - 35.7 g/dL 05/21/2024 8:54 AM EDT [facility] Platelet 398(H) 145 - 357 x10(3)/mc L 05/21/2024 8:54 AM EDT [facility] Mean Platelet Volume 10.8 7.6 - 12.9 fL 05/21/2024 8:54 AM EDT [facility] RDW Standard Deviation 54.6(H) 36.0 - 45.0 fL 05/21/2024 8:54 AM EDT [facility] RDW coefficient of variation 16.1(H) 11.4 - 13.8 % 05/21/2024 8:54 AM EDT [facility] NRBC% auto 0.0 % 05/21/2024 8:54 AM EDT [facility] NRBC Absolute 0.00 0.00 - 0.00 x10(3)/mc L 05/21/2024 8:54 AM EDT [facility] Blood VENOUS BLOOD SPECIMEN / Unknown IP Care Team Draw / Unknown 05/21/2024 8:27 AM EDT 05/21/2024 8:42 AM EDT Saba Spears MD HEMATOLOGY ORDERABL ES [facility] [place] [address] * (ABNORMAL) CRP, acute inflammation (05/21/2024 4:58 AM EDT) C-Reactive Protein 14.1(H) <=4.9 mg/L 05/21/2024 10:05 AM EDT [facility] Blood VENOUS BLOOD SPECIMEN / Unknown IP Care Team Draw / Unknown 05/21/2024 4:58 AM EDT 05/21/2024 5:17 AM EDT Saba Spears MD CHEMISTRY ORDERABLE S Performing Organization Address [facility]/ZIP Co de Phone Number [facility] [address] * Magnesium (05/21/2024 4:58 AM EDT) Magnesium 0.99 0.69 - 1.07 mMol/L 05/21/2024 5:51 AM EDT [facility] Blood VENOUS BLOOD SPECIMEN / Unknown IP Care Team Draw / Unknown 05/21/2024 4:58 AM EDT 05/21/2024 5:17 AM EDT Mary De La Fuente MD CHEMISTRY ORDERABL ES Performing Organization Address [facility] Co de Phone Number [facility] [place] [address] * (ABNORMAL) Phosphorus (05/21/2024 4:58 AM EDT) Phosphorus 6.2(H) 2.5 - 4.5 mg/dL 05/21/2024 5:51 AM EDT [facility] Blood VENOUS BLOOD SPECIMEN / Unknown IP Care Team Draw / Unknown 05/21/2024 4:58 AM EDT 05/21/2024 5:17 AM EDT Mary De La Fuente MD CHEMISTRY ORDERABL ES Performing Organization Address [facility]/ZIP Co de Phone Number [facility] [place] [address] * (ABNORMAL) Basic Metabolic Panel (05/21/2024 4:58 AM EDT) Glucose 151 65 - 199 mg/dL 05/21/2024 5:51 AM EDT [facility] Comment:Glucose Concentratio n >=200 mg/dL plus symptoms is consistent with Diabetes Mellitus. Blood Urea Nitrogen 110(H) 10 - 20 mg/dL 05/21/2024 5:51 AM EDT [facility] Creatinine 3.04(H) 0.80 - 1.50 mg/dL 05/21/2024 5:51 AM EDT [facility] Sodium 138 135 - 145 mMol/L 05/21/2024 5:51 [facility] Potassium 5.1(H) 3.5 - 5.0 mMol/L 05/21/2024 5:51 AM [facility] Chloride 111(H) 98 - 107 mMol/L 05/21/2024 5:51 AM EDT [facility] Carbon Dioxide 18(L) 22 - 31 mMol/L 05/21/2024 5:51 AM [facility] Anion Gap 9 5 - 15 mMol/L 05/21/2024 5:51 AM [facility] Calcium 9.4 8.5 - 10.5 mg/dL 05/21/2024 5:51 AM [facility] Est Glomerular Filtration Rate - Male 21 mL/min/1. 73 m?? 05/21/2024 5:51 AM [facility] Comment: This patient's estimated [...] Fasting Status No 05/21/2024 5:51 AM EDT [facility] Blood VENOUS BLOOD SPECIMEN / Unknown IP Care Team Draw / Unknown 05/21/2024 4:58 AM EDT 05/21/2024 5:17 AM EDT Mary De La Fuente MD CHEMISTRY ORDERABL ES [facility] [address] * (ABNORMAL) CBC (with Diff) (05/21/2024 4:58 AM EDT) [facility] White Blood Cell 14.49(H) 4.00 - 9.50 x10(3)/mc L 05/21/2024 5:28 AM EDT [facility] Red Blood Cell 2.54(L) 4.58 - 5.54 x10(6)/mc L 05/21/2024 5:28 AM [facility] Hemoglobin 7.5(L) 13.7 - 16.5 g/dL 05/21/2024 5:28 AM [facility] Hematocrit 23.6(L) 40.5 - 48.5 % 05/21/2024 5:28 AM [facility] Mean Cell Volume 92.9 82.9 - 93.1 fL 05/21/2024 5:28 AM [facility] Mean Cell Hemoglobin 29.5 27.5 - 32.1 pg 05/21/2024 5:28 AM [facility] Mean Cell Hemoglobin Concentration 31.8(L) 32.0 - 35.7 g/dL 05/21/2024 5:28 AM [facility] Platelet 388(H) 145 - 357 x10(3)/mc L 05/21/2024 5:28 AM [facility] Mean Platelet Volume 10.8 7.6 - 12.9 fL 05/21/2024 5:28 AM [facility] RDW Standard Deviation 53.6(H) 36.0 - 45.0 fL 05/21/2024 5:28 AM [facility] RDW coefficient of variation 16.0(H) 11.4 - 13.8 % 05/21/2024 5:28 AM [facility] NRBC% auto 0.0 % 05/21/2024 5:28 AM [facility] NRBC Absolute 0.00 0.00 - 0.00 x10(3)/mc L 05/21/2024 5:28 AM EDT [facility] Neutrophil % 81.6 % 05/21/2024 5:28 AM EDT [facility] Neutrophil Absolute 11.83(H) 1.70 - 6.10 x10(3)/mc L 05/21/2024 5:28 AM EDT [facility] Lymph % 6.1 % 05/21/2024 5:28 AM EDT [facility] Lymph Absolute 0.89(L) 0.90 - 3.20 x10(3)/mc L 05/21/2024 5:28 AM EDT [facility] Monocyte % 9.4 % 05/21/2024 5:28 AM EDT [facility] Monocyte Absolute 1.36(H) 0.30 - 0.90 x10(3)/mc L 05/21/2024 5:28 AM EDT [facility] Eos % 2.1 % 05/21/2024 5:28 AM EDT [facility] Eos Absolute 0.30 0.00 - 0.40 x10(3)/mc L 05/21/2024 5:28 AM EDT [facility] Basophil % 0.2 % 05/21/2024 5:28 AM EDT [facility] Baso Absolute 0.03 0.00 - 0.10 x10(3)/mc L 05/21/2024 5:28 AM EDT [facility] Immature Gran % 0.6 % 5:28 AM EDT [facility] Immature Gran Absolute 0.08(H) 0.00 - 0.04 x10(3)/mc L 05/21/2024 5:28 AM EDT [facility] Blood VENOUS BLOOD SPECIMEN / Unknown IP Care Team Draw / Unknown 05/21/2024 4:58 AM EDT 05/21/2024 5:17 AM EDT Mary De La Fuente MD HEMATOLOGY ORDERAB LES [facility] [place] [place] [address] * POC, GLUCOSE (05/21/2024 3:45 AM EDT) Glucometer, POC 155 65 - 199 mg/dL 05/21/2024 3:45 AM EDT [facility] Comment:Supplemental ranges: <140 mg/dL before meals <180 mg/dL all other times of the day. Blood CAPILLARY BLOOD / Unknown 05/21/2024 3:45 AM EDT 05/21/2024 3:46 AM EDT Saba Spears MD POINT OF CARE TEST ORDERABLES Performing Organization Address [facility] Co de Phone Number [facility] [place] [address] * POC, GLUCOSE (05/20/2024 11:44 PM EDT) Glucometer, POC 132 65 - 199 mg/dL 05/20/2024 11:44 PM EDT [facility] Comment:Supplemental ranges: <140 mg/dL before meals <180 mg/dL all other times of the day. Blood CAPILLARY BLOOD / Unknown 05/20/2024 11:44 PM EDT 05/20/2024 11:44 PM EDT Saba Spears MD POINT OF CARE TEST ORDERABLES Performing Organization Address City/[facility] Co de Phone Number [facility] [place] [place] [address] * POC, GLUCOSE (05/20/2024 7:24 PM EDT) Glucometer, POC 166 65 - 199 mg/dL 05/20/2024 7:24 PM EDT [facility] Comment:Supplemental ranges: <140 mg/dL before meals <180 mg/dL all other times of the day. Blood CAPILLARY BLOOD / Unknown 05/20/2024 7:24 PM EDT 05/20/2024 7:25 PM EDT Saba Spears MD POINT OF CARE TEST ORDERABLES Performing Organization Address City/[facility]/ZIP Co de Phone Number [facility] [place] [address] * POC, GLUCOSE (05/20/2024 4:24 PM EDT) Glucometer, POC 170 65 - 199 mg/dL 05/20/2024 4:24 PM EDT [facility] Comment:Supplemental ranges: <140 mg/dL before meals <180 mg/dL all other times of the day. Blood CAPILLARY BLOOD / Unknown 05/20/2024 4:24 PM EDT 05/20/2024 4:24 PM EDT Saba Spears MD POINT OF CARE TEST ORDERABLES Performing Organization Address City/[facility] Co de Phone Number [facility] [place] [address] * (ABNORMAL) Hemogram (05/20/2024 12:35 PM EDT) White Blood Cell 14.66(H) 4.00 - 9.50 x10(3)/mc L 05/20/2024 12:50 PM EDT [facility] Red Blood Cell 2.81(L) 4.58 - 5.54 x10(6)/mc L 05/20/2024 12:50 PM EDT [facility] Hemoglobin 8.4(L) 13.7 - 16.5 g/dL 05/20/2024 12:50 PM EDT [facility] Hematocrit 26.2(L) 40.5 - 48.5 % 05/20/2024 12:50 PM EDT [facility] Mean Cell Volume 93.2(H) 82.9 - 93.1 fL 05/20/2024 12:50 PM EDT [facility] Mean Cell Hemoglobin 29.9 27.5 - 32.1 pg 05/20/2024 12:50 PM EDT [facility] Mean Cell Hemoglobin Concentration 32.1 32.0 - 35.7 g/dL 05/20/2024 12:50 PM EDT [facility] Platelet 416(H) 145 - 357 x10(3)/mc L 05/20/2024 12:50 PM EDT [facility] Mean Platelet Volume 10.4 7.6 - 12.9 fL 05/20/2024 12:50 PM EDT [facility] RDW Standard Deviation 52.9(H) 36.0 - 45.0 fL 05/20/2024 12:50 PM EDT [facility] RDW coefficient of variation 15.6(H) 11.4 - 13.8 % 05/20/2024 12:50 PM EDT [facility] NRBC% auto 0.0 % 05/20/2024 12:50 PM [facility] NRBC Absolute 0.00 0.00 - 0.00 x10(3)/mc L 05/20/2024 12:50 PM EDT [facility] Blood VENOUS BLOOD SPECIMEN / Unknown IP Care Team Draw / Unknown 05/20/2024 12:35 PM EDT 05/20/2024 12:43 PM EDT Saba Spears MD HEMATOLOGY ORDERABL ES [facility] [place] [address] * POC, GLUCOSE (05/20/2024 11:52 AM EDT) [facility] Signature Glucometer, POC 176 65 - 199 mg/dL 05/20/2024 11:52 AM EDT [facility] Comment:Supplemental ranges: <140 mg/dL before meals <180 mg/dL all other times of the day. Blood CAPILLARY BLOOD / Unknown 05/20/2024 11:52 AM EDT 05/20/2024 11:52 AM EDT Saba Spears MD POINT OF CARE TEST ORDERABLES [facility] [place] [address] * US Retroperitoneal Complete (05/20/2024 10:36 AM EDT) WORKSTATION ID [id number] RAD Anatomical Region Laterality Modality Abdomen Ultrasound [...] signed by: Teofilo Ruiz MD, [facility] ([phone]), at 05/20/2024 11:30 AM Thank you for letting us participate in the care of this patient. If you are a health care provider and have any questions regarding this report, please contact the number above. For patients who have questions, please contact the health healthcare facility administrator that requested your imaging first. ?Teofilo Ruiz, Staff Physician Electronically Signed Final Report ?? 05/20/2024 11:36 am Narrative 05/20/2024 11:37 AM EDT Renal ? (Signed Final 05/20/2024 11:36 am) PATIENT INFO: ID #: ? [id number] ?: ??[birth year] (69 yrs)(M) Name: ? JOSSY SHANKS ? Visit Date: 05/20/2024 10:34 am PERFORMED BY: Attending: ?Joseph SOTOMAYOR, Teofilo Flores Resident: ? Kuldeep SOTOMAYOR, Trinidad Wright Performed By: ? Lulu Shin RDMS Referred By: ?SABA SPEARS Location: ? [place] SERVICE(S) PROVIDED: URETRO - Retroperitoneal Complete - [id number] ? [id number] INDICATIONS: CKD, increase BUN TECHNIQUE/SCAN QUALITY: Scan [...] 05/20/2024 11:36 am) PATIENT INFO: ID #: [id number] : [birth year] (69 yrs)(M) Name: JOSSY SHANKS Visit Date: 05/20/2024 10:34 am PERFORMED BY: Attending: Teofilo Ruiz MD Resident: Trinidad Light MD Performed By: Lulu Shin RDMS Referred By: SABA SPEARS Location: [place] SERVICE(S) PROVIDED: URETRO - Retroperitoneal Complete - [id number] INDICATIONS: CKD, increase BUN TECHNIQUE/SCAN QUALITY: Scan [...] signed by: Teofilo Ruiz MD, [facility] ([phone]), at 05/20/2024 11:30 AM Thank you for letting us participate in the care of this patient. If you are a health care provider and have any questions regarding this report, please contact the number above. For patients who have questions, please contact the health healthcare facility administrator that requested your imaging first. Teofilo Ruiz, Staff Physician Electronically Signed Final Report 05/20/2024 11:36 am Saba Spears MD [facility] ORDER[facility] ES * POC, GLUCOSE (05/20/2024 8:03 AM EDT) Glucometer, POC 180 65 - 199 mg/dL 05/20/2024 8:03 AM EDT [facility] Comment:Supplemental ranges: <140 mg/dL before meals <180 mg/dL all other times of the day. Blood CAPILLARY BLOOD / Unknown 05/20/2024 8:03 AM EDT 05/20/2024 8:03 AM EDT Saba Spears MD POINT OF CARE TEST ORDERABLES Performing Organization Address [facility] Co de Phone Number [facility] [place] [address] * Magnesium (05/20/2024 4:27 AM EDT) Magnesium 0.99 0.69 - 1.07 mMol/L 05/20/2024 5:27 AM EDT [facility] Blood VENOUS BLOOD SPECIMEN / Unknown IP Care Team Draw / Unknown 05/20/2024 4:27 AM EDT 05/20/2024 4:52 AM EDT Mary De La Fuente MD CHEMISTRY ORDERABL ES Performing Organization Address [facility] Co de Phone Number [facility] [place] [address] * (ABNORMAL) Phosphorus (05/20/2024 4:27 AM EDT) Phosphorus 5.1(H) 2.5 - 4.5 mg/dL 05/20/2024 5:27 AM EDT [facility] Blood VENOUS BLOOD SPECIMEN / Unknown IP Care Team Draw / Unknown 05/20/2024 4:27 AM EDT 05/20/2024 4:52 AM EDT Mary De La Fuente MD CHEMISTRY ORDERABL ES Performing Organization Address City/[facility]/ZIP Co de Phone Number [facility] [place] [address] * (ABNORMAL) Basic Metabolic Panel (non-fasting) (05/20/2024 4:27 AM EDT) Glucose 173 65 - 199 mg/dL 05/20/2024 6:27 [facility] Comment:Glucose Concentratio n >=200 mg/dL plus symptoms is consistent with Diabetes Mellitus. Blood Urea Nitrogen 121(H) 10 - 20 mg/dL 05/20/2024 6:27 AM EDT [facility] Creatinine 2.78(H) 0.80 - 1.50 mg/dL 05/20/2024 6:27 AM [facility] Sodium 138 135 - 145 mMol/L 05/20/2024 6:27 AM [facility] Potassium 5.4(H) 3.5 - 5.0 mMol/L 05/20/2024 6:27 AM [facility] Chloride 109(H) 98 - 107 mMol/L 05/20/2024 6:27 AM [facility] Carbon Dioxide 18(L) 22 - 31 mMol/L 05/20/2024 6:27 AM [facility] Anion Gap 11 5 - 15 mMol/L 05/20/2024 6:27 AM [facility] Calcium 9.4 8.5 - 10.5 mg/dL 05/20/2024 6:27 AM [facility] Est Glomerular Filtration Rate - Male 24 mL/min/1. 73 m?? 05/20/2024 6:27 AM [facility] Comment: This patient's estimated [...] Fasting Status No 05/20/2024 6:27 AM EDT [facility] Blood VENOUS BLOOD SPECIMEN / Unknown IP Care Team Draw / Unknown 05/20/2024 4:27 AM EDT 05/20/2024 4:52 AM EDT Mary De La Fuente MD CHEMISTRY ORDERABL ES [facility] [place] [address] * (ABNORMAL) CBC (with Diff) (05/20/2024 4:27 AM EDT) White Blood Cell 15.20(H) 4.00 - 9.50 x10(3)/mc L 05/20/2024 5:32 AM EDT [facility] Red Blood Cell 2.69(L) 4.58 - 5.54 x10(6)/mc L 05/20/2024 5:32 AM EDT [facility] Hemoglobin 7.9(L) 13.7 - 16.5 g/dL 05/20/2024 5:32 AM [facility] Hematocrit 25.5(L) 40.5 - 48.5 % 05/20/2024 5:32 AM [facility] Mean Cell Volume 94.8(H) 82.9 - 93.1 fL 05/20/2024 5:32 AM [facility] Mean Cell Hemoglobin 29.4 27.5 - 32.1 pg 05/20/2024 5:32 AM [facility] Mean Cell Hemoglobin Concentration 31.0(L) 32.0 - 35.7 g/dL 05/20/2024 5:32 AM [facility] Platelet 403(H) 145 - 357 x10(3)/mc L 05/20/2024 5:32 AM [facility] Mean Platelet Volume 10.7 7.6 - 12.9 fL 05/20/2024 5:32 AM [facility] RDW Standard Deviation 54.7(H) 36.0 - 45.0 fL 05/20/2024 5:32 AM [facility] RDW coefficient of variation 15.8(H) 11.4 - 13.8 % 05/20/2024 5:32 AM [facility] NRBC% auto 0.0 % 05/20/2024 5:32 AM [facility] NRBC Absolute 0.00 0.00 - 0.00 x10(3)/mc L 05/20/2024 5:32 AM [facility] Neutrophil % 82.1 % 05/20/2024 5:32 AM [facility] Neutrophil Absolute 12.49(H) 1.70 - 6.10 x10(3)/mc L 05/20/2024 5:32 AM [facility] Lymph % 6.3 % 05/20/2024 5:32 AM [facility] Lymph Absolute 0.96 0.90 - 3.20 x10(3)/mc L 05/20/2024 5:32 AM [facility] Monocyte % 8.7 % 05/20/2024 5:32 AM [facility] Monocyte Absolute 1.32(H) 0.30 - 0.90 x10(3)/mc L 05/20/2024 5:32 AM [facility] Eos % 2.0 % 05/20/2024 5:32 AM [facility] Eos Absolute 0.30 0.00 - 0.40 x10(3)/mc L 05/20/2024 5:32 AM [facility] Basophil % 0.3 % 05/20/2024 5:32 AM [facility] Baso Absolute 0.04 0.00 - 0.10 x10(3)/mc L 05/20/2024 5:32 AM EDT [facility] Immature Gran % 0.6 % 5:32 AM EDT [facility] Immature Gran Absolute 0.09(H) 0.00 - 0.04 x10(3)/mc L 05/20/2024 5:32 AM EDT [facility] Blood VENOUS BLOOD SPECIMEN / Unknown IP Care Team Draw / Unknown 05/20/2024 4:27 AM EDT 05/20/2024 4:52 AM EDT Mary De La Fuente MD HEMATOLOGY ORDERAB LES Performing Organization Address City/[facility]/ZIP Co de Phone Number [facility] [place] [address] * POC, GLUCOSE (05/20/2024 3:11 AM EDT) Glucometer, POC 163 65 - 199 mg/dL 05/20/2024 3:12 AM EDT [facility] Comment:Supplemental ranges: <140 mg/dL before meals <180 mg/dL all other times of the day. Blood CAPILLARY BLOOD / Unknown 05/20/2024 3:11 AM EDT 05/20/2024 3:12 AM EDT Saba Spears MD POINT OF CARE TEST ORDERABLES Performing Organization Address City/[facility]/ZIP Co de Phone Number [facility] [place] [address] * POC, GLUCOSE (05/19/2024 11:07 PM EDT) Glucometer, POC 136 65 - 199 mg/dL 05/19/2024 11:07 PM EDT [facility] Comment:Supplemental ranges: <140 mg/dL before meals <180 mg/dL all other times of the day. Blood CAPILLARY BLOOD / Unknown 05/19/2024 11:07 PM EDT 05/19/2024 11:07 PM EDT Saba Spears MD POINT OF CARE TEST ORDERABLES Performing Organization Address City/[facility]/ZIP Co de Phone Number [facility] [place] [address] * POC, GLUCOSE (05/19/2024 8:20 PM EDT) [facility] Glucometer, POC 150 65 - 199 mg/dL 05/19/2024 8:20 PM EDT [facility] Comment:Supplemental ranges: <140 mg/dL before meals <180 mg/dL all other times of the day. Blood CAPILLARY BLOOD / Unknown 05/19/2024 8:20 PM EDT 05/19/2024 8:21 PM EDT Saba Spears MD POINT OF CARE TEST ORDERABLES Performing Organization Address [facility]/ZIP Co de Phone Number [facility] [place] [address] * (ABNORMAL) Iron and TIBC (05/19/2024 5:09 PM EDT) [facility] Iron 58 45 - 160 mcg/dL 05/19/2024 6:56 PM EDT [facility] Unsaturated Iron Binding Capacity 143 110 - 370 mcg/dL 05/19/2024 6:56 PM EDT [facility] TIBC 201(L) 250 - 450 mcg/dL 05/19/2024 6:56 PM EDT [facility] Iron Saturation 29 20 - 50 % 6:56 PM EDT [facility] Blood VENOUS BLOOD SPECIMEN / Unknown IP Care Team Draw / Unknown 05/19/2024 5:09 PM EDT 05/19/2024 5:43 PM EDT Saba Spears MD CHEMISTRY ORDERABLE S [facility] [place] [address] * PTH (05/19/2024 5:09 PM EDT) Parathyroid Hormone 27 15 - 65 pg/mL 05/19/2024 6:15 PM EDT [facility] Blood VENOUS BLOOD SPECIMEN / Unknown IP Care Team Draw / Unknown 05/19/2024 5:09 PM EDT 05/19/2024 5:43 PM EDT Saba Spears MD CHEMISTRY ORDERABLE S [facility] [place] [address] * Ferritin (05/19/2024 5:08 PM EDT) Ferritin 191 31 - 409 ng/ml 05/19/2024 6:24 PM EDT [facility] Blood VENOUS BLOOD SPECIMEN / Unknown IP Care Team Draw / Unknown 05/19/2024 5:08 PM EDT 05/19/2024 5:43 PM EDT Saba Spears MD CHEMISTRY ORDERABLE S [facility] [place] [address] * POC, GLUCOSE (05/19/2024 3:59 PM EDT) Glucometer, POC 185 65 - 199 mg/dL 05/19/2024 3:59 PM EDT [facility] Comment:Supplemental ranges: <140 mg/dL before meals <180 mg/dL all other times of the day. Blood CAPILLARY BLOOD / Unknown 05/19/2024 3:59 PM EDT 05/19/2024 3:59 PM EDT Saba Spears MD POINT OF CARE TEST ORDERABLES [facility] [place] [address] * POC, GLUCOSE (05/19/2024 12:32 PM EDT) Glucometer, POC 143 65 - 199 mg/dL 05/19/2024 12:32 PM EDT [facility] Comment:Supplemental ranges: <140 mg/dL before meals <180 mg/dL all other times of the day. Blood CAPILLARY BLOOD / Unknown 05/19/2024 12:32 PM EDT 05/19/2024 12:32 PM EDT Saba Spears MD POINT OF CARE TEST ORDERABLES [facility] [place] [address] * POC, GLUCOSE (05/19/2024 8:12 AM EDT) Glucometer, POC 181 65 - 199 mg/dL 05/19/2024 8:13 AM EDT [facility] Comment:Supplemental ranges: <140 mg/dL before meals <180 mg/dL all other times of the day. Blood CAPILLARY BLOOD / Unknown 05/19/2024 8:12 AM EDT 05/19/2024 8:13 AM EDT Saba Spears MD POINT OF CARE TEST ORDERABLES Performing Organization Address [facility]/ZIP Co de Phone Number [facility] [place] [address] * (ABNORMAL) Magnesium (05/19/2024 5:11 AM EDT) Magnesium 1.08(H) 0.69 - 1.07 mMol/L 05/19/2024 5:58 AM EDT [facility] Blood VENOUS BLOOD SPECIMEN / Unknown IP Care Team Draw / Unknown 05/19/2024 5:11 AM EDT 05/19/2024 5:30 AM EDT Mary De La Fuente MD CHEMISTRY ORDERABL ES Performing Organization Address City/[facility]/ZIP Co de Phone Number [facility] [place] [address] * (ABNORMAL) Phosphorus (05/19/2024 5:11 AM EDT) Phosphorus 5.1(H) 2.5 - 4.5 mg/dL 05/19/2024 5:58 AM EDT [facility] Blood VENOUS BLOOD SPECIMEN / Unknown IP Care Team Draw / Unknown 05/19/2024 5:11 AM EDT 05/19/2024 5:30 AM EDT Mary De La Fuente MD CHEMISTRY ORDERABL ES [facility] [place] [address] * (ABNORMAL) Basic Metabolic Panel (non-fasting) (05/19/2024 5:11 AM EDT) Glucose 162 65 - 199 mg/dL 05/19/2024 6:53 AM EDT [facility] Comment:Glucose Concentratio n >=200 mg/dL plus symptoms is consistent with Diabetes Mellitus. Blood Urea Nitrogen 118(H) 10 - 20 mg/dL 05/19/2024 6:53 AM EDT [facility] Creatinine 2.75(H) 0.80 - 1.50 mg/dL 05/19/2024 6:53 AM EDT [facility] Sodium 136 135 - 145 mMol/L 05/19/2024 6:53 AM EDT [facility] Potassium 5.2(H) 3.5 - 5.0 mMol/L 05/19/2024 6:53 AM EDT [facility] Chloride 108(H) 98 - 107 mMol/L 05/19/2024 6:53 AM [facility] Carbon Dioxide 18(L) 22 - 31 mMol/L 05/19/2024 6:53 AM [facility] Anion Gap 10 5 - 15 mMol/L 05/19/2024 6:53 AM [facility] Calcium 9.3 8.5 - 10.5 mg/dL 05/19/2024 6:53 AM EDT [facility] Est Glomerular Filtration Rate - Male 24 mL/min/1. 73 m?? 05/19/2024 6:53 AM EDT [facility] Comment: This patient's estimated [...] Fasting Status No 05/19/2024 6:53 AM EDT [facility] Blood VENOUS BLOOD SPECIMEN / Unknown IP Care Team Draw / Unknown 05/19/2024 5:11 AM EDT 05/19/2024 5:30 AM EDT Mary De La Fuente MD CHEMISTRY ORDERABL ES [facility] [place] [address] * (ABNORMAL) CBC (with Diff) (05/19/2024 5:11 AM EDT) White Blood Cell 12.77(H) 4.00 - 9.50 x10(3)/mc L 05/19/2024 5:37 AM EDT [facility] Red Blood Cell 3.11(L) 4.58 - 5.54 x10(6)/mc L 05/19/2024 5:37 AM EDT [facility] Hemoglobin 9.3(L) 13.7 - 16.5 g/dL 05/19/2024 5:37 AM EDT [facility] Hematocrit 28.9(L) 40.5 - 48.5 % 05/19/2024 5:37 AM EDT [facility] Mean Cell Volume 92.9 82.9 - 93.1 fL 05/19/2024 5:37 AM [facility] Mean Cell Hemoglobin 29.9 27.5 - 32.1 pg 05/19/2024 5:37 AM [facility] Mean Cell Hemoglobin Concentration 32.2 32.0 - 35.7 g/dL 05/19/2024 5:37 AM [facility] Platelet 379(H) 145 - 357 x10(3)/mc L 05/19/2024 5:37 AM [facility] Mean Platelet Volume 10.2 7.6 - 12.9 fL 05/19/2024 5:37 AM [facility] RDW Standard Deviation 53.1(H) 36.0 - 45.0 fL 05/19/2024 5:37 AM [facility] RDW coefficient of variation 15.8(H) 11.4 - 13.8 % 05/19/2024 5:37 AM [facility] NRBC% auto 0.0 % 05/19/2024 5:37 AM [facility] NRBC Absolute 0.00 0.00 - 0.00 x10(3)/mc L 05/19/2024 5:37 AM [facility] Neutrophil % 78.9 % 05/19/2024 5:37 AM [facility] Neutrophil Absolute 10.06(H) 1.70 - 6.10 x10(3)/mc L 05/19/2024 5:37 AM [facility] Lymph % 8.1 % 05/19/2024 5:37 AM [facility] Lymph Absolute 1.03 0.90 - 3.20 x10(3)/mc L 05/19/2024 5:37 AM [facility] Monocyte % 10.3 % 05/19/2024 5:37 AM [facility] Monocyte Absolute 1.32(H) 0.30 - 0.90 x10(3)/mc L 05/19/2024 5:37 AM EDT [facility] Eos % 1.6 % 05/19/2024 5:37 AM EDT [facility] Eos Absolute 0.21 0.00 - 0.40 x10(3)/mc L 05/19/2024 5:37 AM EDT [facility] Basophil % 0.2 % 05/19/2024 5:37 AM EDT [facility] Baso Absolute 0.03 0.00 - 0.10 x10(3)/mc L 05/19/2024 5:37 AM EDT [facility] Immature Gran % 0.9 % 5:37 AM EDT [facility] Immature Gran Absolute 0.12(H) 0.00 - 0.04 x10(3)/mc L 05/19/2024 5:37 AM EDT [facility] Blood VENOUS BLOOD SPECIMEN / Unknown IP Care Team Draw / Unknown 05/19/2024 5:11 AM EDT 05/19/2024 5:30 AM EDT Mary De La Fuente MD HEMATOLOGY ORDERAB LES [facility] [place] [place] [address] * POC, GLUCOSE (05/19/2024 3:27 AM EDT) [facility] Signature Glucometer, POC 171 65 - 199 mg/dL 05/19/2024 3:28 AM EDT [facility] Comment:Supplemental ranges: <140 mg/dL before meals <180 mg/dL all other times of the day. Blood CAPILLARY BLOOD / Unknown 05/19/2024 3:27 AM EDT 05/19/2024 3:28 AM EDT Saba Spears MD POINT OF CARE TEST ORDERABLES [facility] [place] [address] * POC, GLUCOSE (05/19/2024 12:02 AM EDT) Glucometer, POC 183 65 - 199 mg/dL 05/19/2024 12:02 AM EDT [facility] Comment:Supplemental ranges: <140 mg/dL before meals <180 mg/dL all other times of the day. Blood CAPILLARY BLOOD / Unknown 05/19/2024 12:02 AM EDT 05/19/2024 12:02 AM EDT Saba Spears MD POINT OF CARE TEST ORDERABLES [facility] [place] [address] * (ABNORMAL) POC, GLUCOSE (05/18/2024 8:05 PM EDT) Glucometer, POC 207(H) 65 - 199 mg/dL 05/18/2024 8:06 PM EDT [facility] Comment:Supplemental ranges: <140 mg/dL before meals <180 mg/dL all other times of the day. Blood CAPILLARY BLOOD / Unknown 05/18/2024 8:05 PM EDT 05/18/2024 8:06 PM EDT Saba Spears MD POINT OF CARE TEST ORDERABLES [facility] [place] [address] * POC, GLUCOSE (05/18/2024 6:14 PM EDT) Glucometer, POC 174 65 - 199 mg/dL 05/18/2024 6:15 PM EDT [facility] Comment:Supplemental ranges: <140 mg/dL before meals <180 mg/dL all other times of the day. Blood CAPILLARY BLOOD / Unknown 05/18/2024 6:14 PM EDT 05/18/2024 6:15 PM EDT Saba Spears MD POINT OF CARE TEST ORDERABLES [facility] [place] [address] * (ABNORMAL) Basic Metabolic Panel (05/18/2024 5:04 PM EDT) Glucose 170 65 - 199 mg/dL 05/18/2024 6:14 PM EDT [facility] Comment:Glucose Concentratio n >=200 mg/dL plus symptoms is consistent with Diabetes Mellitus. Blood Urea Nitrogen 116(H) 10 - 20 mg/dL 05/18/2024 6:14 PM EDT [facility] Creatinine 2.64(H) 0.80 - 1.50 mg/dL 05/18/2024 6:14 PM EDT [facility] Sodium 139 135 - 145 mMol/L 05/18/2024 6:14 PM T [facility] Potassium 5.4(H) 3.5 - 5.0 mMol/L 05/18/2024 6:14 PM EDT [facility] Chloride 110(H) 98 - 107 mMol/L 05/18/2024 6:14 PM T [facility] Carbon Dioxide 17(L) 22 - 31 mMol/L 05/18/2024 6:14 PM EDT [facility] Anion Gap 12 5 - 15 mMol/L 05/18/2024 6:14 PM EDT [facility] Calcium 9.2 8.5 - 10.5 mg/dL 05/18/2024 6:14 PM EDT [facility] Est Glomerular Filtration Rate - Male 25 mL/min/1. 73 m?? 05/18/2024 6:14 PM EDT [facility] Comment: This patient's estimated [...] Fasting Status No 05/18/2024 6:14 PM EDT [facility] Blood VENOUS BLOOD SPECIMEN / Unknown IP Care Team Draw / Unknown 05/18/2024 5:04 PM EDT 05/18/2024 5:11 PM EDT Saba Spears MD CHEMISTRY ORDERABLE S Performing Organization Address [facility]/ZIP Co de Phone Number [facility] [place] [address] * (ABNORMAL) POC, GLUCOSE (05/18/2024 11:45 AM EDT) Glucometer, POC 211(H) 65 - 199 mg/dL 05/18/2024 11:45 AM EDT [facility] Comment:Supplemental ranges: <140 mg/dL before meals <180 mg/dL all other times of the day. Blood CAPILLARY BLOOD / Unknown 05/18/2024 11:45 AM EDT 05/18/2024 11:45 AM EDT Saba Spears MD POINT OF CARE TEST ORDERABLES Performing Organization Address City/[facility]/ZIP Co de Phone Number [facility] [place] [address] * C diff Screen (05/18/2024 11:31 AM EDT) C Diff Interp Negative Negative 05/18/2024 3:02 PM EDT [facility] Comment:Clostridioides diffi cile is not present in the specimen. If patient is having diarrhea suspected to be from an infectious cause, then Soap & Water Contact Precautions are still required. If patient is having diarrhea with no suspected infectious cause use standard precautions. C Diff PCR Negative Negative, Indeterminate 05/18/2024 3:02 PM EDT [facility] Stool STOOL SPECIMEN / Unknown Non Blood Collection / Unknown 05/18/2024 11:31 AM EDT 05/18/2024 12:09 PM EDT Saba Spears MD MICROBIOLOGY - GENE RAL ORDERABLES Performing Organization Address [facility]/ZIP Co de Phone Number [facility] [place] [address] * C Diff PCR (05/18/2024 11:31 AM EDT) Stool STOOL SPECIMEN / Unknown Non Blood Collection / Unknown 05/18/2024 11:31 AM EDT 05/18/2024 12:09 PM EDT Saba Spears MD MICROBIOLOGY - GENE RAL ORDERABLES Performing Organization Address City/[facility] Co de Phone Number [facility] [place] [place] [address] * Creatinine, urine, random (05/18/2024 8:57 AM EDT) Creatinine, Urine 44 mg/dL 05/18/2024 9:36 AM EDT [facility] Urine URINE SPECIMEN / Unknown Non Blood Collection / Unknown 05/18/2024 8:57 AM EDT 05/18/2024 9:07 AM EDT Saba Spears MD URINE ORDERABLES Performing Organization Address City/[facility]/ZIP Co de Phone Number [facility] [place] [address] * Electrolytes, urine, random (05/18/2024 8:57 AM EDT) Sodium, Urine 50 mMol/L 05/18/2024 12:09 PM EDT [facility] Potassium, Urine 13 mMol/L 05/18/2024 12:09 PM EDT [facility] Chloride, Urine 35 mMol/L 05/18/2024 12:09 PM EDT [facility] Urine URINE SPECIMEN / Unknown Non Blood Collection / Unknown 05/18/2024 8:57 AM EDT 05/18/2024 9:07 AM EDT Saba Spears MD URINE ORDERABLES Performing Organization Address City/[facility]/ZIP Co de Phone Number [facility] [place] [address] * POC, GLUCOSE (05/18/2024 8:34 AM EDT) Glucometer, POC 182 65 - 199 mg/dL 05/18/2024 8:35 AM EDT [facility] Comment:Supplemental ranges: <140 mg/dL before meals <180 mg/dL all other times of the day. Blood CAPILLARY BLOOD / Unknown 05/18/2024 8:34 AM EDT 05/18/2024 8:35 AM EDT Saba Spears MD POINT OF CARE TEST ORDERABLES Performing Organization Address [facility] Co de Phone Number [facility] [place] [address] * POC, GLUCOSE (05/18/2024 4:10 AM EDT) Glucometer, POC 163 65 - 199 mg/dL 05/18/2024 4:10 AM EDT [facility] Comment:Supplemental ranges: <140 mg/dL before meals <180 mg/dL all other times of the day. Blood CAPILLARY BLOOD / Unknown 05/18/2024 4:10 AM EDT 05/18/2024 4:11 AM EDT Saba Spears MD POINT OF CARE TEST ORDERABLES Performing Organization Address City/[facility]/ZIP Co de Phone Number [facility] [place] [place] [address] * (ABNORMAL) CBC (with Diff) (05/18/2024 4:01 AM EDT) White Blood Cell 9.84(H) 4.00 - 9.50 x10(3)/mc L 05/18/2024 4:19 AM [facility] Red Blood Cell 3.24(L) 4.58 - 5.54 x10(6)/mc L 05/18/2024 4:19 AM [facility] Hemoglobin 9.6(L) 13.7 - 16.5 g/dL 05/18/2024 4:19 AM [facility] Hematocrit 31.4(L) 40.5 - 48.5 % 05/18/2024 4:19 AM [facility] Mean Cell Volume 96.9(H) 82.9 - 93.1 fL 05/18/2024 4:19 AM [facility] Mean Cell Hemoglobin 29.6 27.5 - 32.1 pg 05/18/2024 4:19 AM [facility] Mean Cell Hemoglobin Concentration 30.6(L) 32.0 - 35.7 g/dL 05/18/2024 4:19 AM [facility] Platelet 335 145 - 357 x10(3)/mc L 05/18/2024 4:19 AM [facility] Mean Platelet Volume 10.3 7.6 - 12.9 fL 05/18/2024 4:19 AM [facility] RDW Standard Deviation 56.4(H) 36.0 - 45.0 fL 05/18/2024 4:19 AM [facility] RDW coefficient of variation 15.7(H) 11.4 - 13.8 % 05/18/2024 4:19 AM [facility] NRBC% auto 0.2 % 05/18/2024 4:19 AM [facility] NRBC Absolute 0.02(H) 0.00 - 0.00 x10(3)/mc L 05/18/2024 4:19 AM [facility] Neutrophil % 76.5 % 05/18/2024 4:19 AM EDT [facility] Neutrophil Absolute 7.52(H) 1.70 - 6.10 x10(3)/mc L 05/18/2024 4:19 AM EDT [facility] Lymph % 8.0 % 05/18/2024 4:19 AM EDT [facility] Lymph Absolute 0.79(L) 0.90 - 3.20 x10(3)/mc L 05/18/2024 4:19 AM EDT [facility] Monocyte % 12.5 % 05/18/2024 4:19 AM EDT [facility] Monocyte Absolute 1.23(H) 0.30 - 0.90 x10(3)/mc L 05/18/2024 4:19 AM EDT [facility] Eos % 1.9 % 05/18/2024 4:19 AM EDT [facility] Eos Absolute 0.19 0.00 - 0.40 x10(3)/mc L 05/18/2024 4:19 AM EDT [facility] Basophil % 0.2 % 05/18/2024 4:19 AM EDT [facility] Baso Absolute 0.02 0.00 - 0.10 x10(3)/mc L 05/18/2024 4:19 AM EDT [facility] Immature Gran % 0.9 % 4:19 AM EDT [facility] Immature Gran Absolute 0.09(H) 0.00 - 0.04 x10(3)/mc L 05/18/2024 4:19 AM EDT [facility] Blood VENOUS BLOOD SPECIMEN / Unknown IP Care Team Draw / Unknown 05/18/2024 4:01 AM EDT 05/18/2024 4:13 AM EDT Mary De La Fuente MD HEMATOLOGY ORDERAB LES [facility] [place] [place] [address] * (ABNORMAL) Magnesium (05/18/2024 4:00 AM EDT) Pathologist [facility] Magnesium 1.09(H) 0.69 - 1.07 mMol/L 05/18/2024 10:11 AM EDT [facility] Blood VENOUS BLOOD SPECIMEN / Unknown IP Care Team Draw / Unknown 05/18/2024 4:00 AM EDT 05/18/2024 4:13 AM EDT Mary De La Fuente MD CHEMISTRY ORDERABL ES Performing Organization Address [facility] Co de Phone Number [facility] [place] [place] [address] * (ABNORMAL) Phosphorus (05/18/2024 4:00 AM EDT) [facility] Phosphorus 4.7(H) 2.5 - 4.5 mg/dL 05/18/2024 10:11 AM EDT [facility] Blood VENOUS BLOOD SPECIMEN / Unknown IP Care Team Draw / Unknown 05/18/2024 4:00 AM EDT 05/18/2024 4:13 AM EDT Mary De La Fuente MD CHEMISTRY ORDERABL ES Performing Organization Address [facility] Co de Phone Number [facility] [place] [address] * (ABNORMAL) Basic Metabolic Panel (non-fasting) (05/18/2024 4:00 AM EDT) [facility] Glucose 144 65 - 199 mg/dL 05/18/2024 10:11 AM EDT [facility] Comment:Glucose Concentratio n >=200 mg/dL plus symptoms is consistent with Diabetes Mellitus. Blood Urea Nitrogen 105(H) 10 - 20 mg/dL 05/18/2024 10:11 AM EDT [facility] Creatinine 2.69(H) 0.80 - 1.50 mg/dL 05/18/2024 10:11 AM EDT [facility] Sodium 134(L) 135 - 145 mMol/L 05/18/2024 10:11 AM EDT [facility] Potassium 5.6(H) 3.5 - 5.0 mMol/L 05/18/2024 10:11 AM [facility] Chloride 107 98 - 107 mMol/L 05/18/2024 10:11 AM [facility] Carbon Dioxide 11(L) 22 - 31 mMol/L 05/18/2024 10:11 AM [facility] Anion Gap 16(H) 5 - 15 mMol/L 05/18/2024 10:11 AM [facility] Calcium 8.8 8.5 - 10.5 mg/dL 05/18/2024 10:11 AM [facility] Est Glomerular Filtration Rate - Male 25 mL/min/1. 73 m?? 05/18/2024 10:11 AM [facility] Comment: This patient's estimated [...] Fasting Status No 05/18/2024 10:11 AM EDT [facility] Blood VENOUS BLOOD SPECIMEN / Unknown IP Care Team Draw / Unknown 05/18/2024 4:00 AM EDT 05/18/2024 4:13 AM EDT Mary De La Fuente MD CHEMISTRY ORDERABL ES [facility] [place] [address] * (ABNORMAL) POC, GLUCOSE (05/17/2024 11:30 PM EDT) [facility] Glucometer, POC 232(H) 65 - 199 mg/dL 05/17/2024 11:30 PM EDT [facility] Comment:Supplemental ranges: <140 mg/dL before meals <180 mg/dL all other times of the day. Blood CAPILLARY BLOOD / Unknown 05/17/2024 11:30 PM EDT 05/17/2024 11:30 PM EDT Saba Spears MD POINT OF CARE TEST ORDERABLES Performing Organization Address City/[facility]/ZIP Co de Phone Number [facility] [place] [address] * POC, GLUCOSE (05/17/2024 8:12 PM EDT) Glucometer, POC 161 65 - 199 mg/dL 05/17/2024 8:12 PM EDT [facility] Comment:Supplemental ranges: <140 mg/dL before meals <180 mg/dL all other times of the day. Blood CAPILLARY BLOOD / Unknown 05/17/2024 8:12 PM EDT 05/17/2024 8:13 PM EDT Saba Spears MD POINT OF CARE TEST ORDERABLES Performing Organization Address City/[facility] Co de Phone Number [facility] [place] [address] * POC, GLUCOSE (05/17/2024 5:35 PM EDT) Glucometer, POC 167 65 - 199 mg/dL 05/17/2024 5:35 PM EDT [facility] Comment:Supplemental ranges: <140 mg/dL before meals <180 mg/dL all other times of the day. Blood CAPILLARY BLOOD / Unknown 05/17/2024 5:35 PM EDT 05/17/2024 5:35 PM EDT Sbaa Spears MD POINT OF CARE TEST ORDERABLES [facility] [place] [address] * POC, GLUCOSE (05/17/2024 12:50 PM EDT) Glucometer, POC 147 65 - 199 mg/dL 05/17/2024 12:50 PM EDT [facility] Comment:Supplemental ranges: <140 mg/dL before meals <180 mg/dL all other times of the day. Blood CAPILLARY BLOOD / Unknown 05/17/2024 12:50 PM EDT 05/17/2024 12:50 PM EDT Saba Spears MD POINT OF CARE TEST ORDERABLES [facility] [place] [address] * POC, GLUCOSE (05/17/2024 8:20 AM EDT) Glucometer, POC 139 65 - 199 mg/dL 05/17/2024 8:21 AM EDT [facility] Comment:Supplemental ranges: <140 mg/dL before meals <180 mg/dL all other times of the day. Blood CAPILLARY BLOOD / Unknown 05/17/2024 8:20 AM EDT 05/17/2024 8:21 AM EDT Treva Diaz MD POINT OF CARE TEST ORDERABLES [facility] [place] [address] * (ABNORMAL) Magnesium (05/17/2024 5:49 AM EDT) Magnesium 1.14(H) 0.69 - 1.07 mMol/L 05/17/2024 6:58 AM EDT [facility] Blood IP Care Team w / Unknown 05/17/2024 5:49 AM EDT 05/17/2024 6:13 AM EDT Mary De La Fuente MD CHEMISTRY ORDERABL ES Performing Organization Address City/[facility]/ZIP Co de Phone Number [facility] [place] [address] * (ABNORMAL) Phosphorus (05/17/2024 5:49 AM EDT) Pathologist [facility] Phosphorus 5.6(H) 2.5 - 4.5 mg/dL 05/17/2024 6:58 AM EDT [facility] Blood IP Care Team w / Nick 05/17/2024 5:49 AM EDT 05/17/2024 6:13 AM EDT Mary De La Fuente MD CHEMISTRY ORDERABL ES Performing Organization Address [facility] Co de Phone Number [facility] [place] [address] * (ABNORMAL) Basic Metabolic Panel (non-fasting) (05/17/2024 5:49 AM EDT) [facility] Glucose 131 65 - 199 mg/dL 05/17/2024 6:58 AM EDT [facility] Comment:Glucose Concentratio n >=200 mg/dL plus symptoms is consistent with Diabetes Mellitus. Blood Urea Nitrogen 86(H) 10 - 20 mg/dL 05/17/2024 6:58 AM EDT [facility] Creatinine 3.07(H) 0.80 - 1.50 mg/dL 05/17/2024 6:58 AM EDT [facility] Sodium 134(L) 135 - 145 mMol/L 05/17/2024 6:58 AM EDT [facility] Potassium 5.0 3.5 - 5.0 mMol/L 05/17/2024 6:58 AM EDT [facility] Chloride 103 98 - 107 mMol/L 05/17/2024 6:58 AM EDT [facility] Carbon Dioxide 21(L) 22 - 31 mMol/L 05/17/2024 6:58 AM EDT [facility] Anion Gap 10 5 - 15 mMol/L 05/17/2024 6:58 AM EDT [facility] Calcium 8.7 8.5 - 10.5 mg/dL 05/17/2024 6:58 AM EDT [facility] Est Glomerular Filtration Rate - Male 21 mL/min/1. 73 m?? 05/17/2024 6:58 AM EDT [facility] Comment: This patient's estimated [...] Fasting Status No 05/17/2024 6:58 AM EDT [facility] Blood IP Care Team w / Nick 05/17/2024 5:49 AM EDT 05/17/2024 6:13 AM EDT Mary De La Fuente MD CHEMISTRY ORDERABL ES [facility] [place] [address] * (ABNORMAL) CBC (with Diff) (05/17/2024 5:49 AM EDT) White Blood Cell 8.61 4.00 - 9.50 x10(3)/mc L 05/17/2024 6:28 AM EDT [facility] Red Blood Cell 3.54(L) 4.58 - 5.54 x10(6)/mc L 05/17/2024 6:28 AM EDT [facility] Hemoglobin 10.5(L) 13.7 - 16.5 g/dL 05/17/2024 6:28 AM EDT [facility] Hematocrit 33.9(L) 40.5 - 48.5 % 05/17/2024 6:28 AM [facility] Mean Cell Volume 95.8(H) 82.9 - 93.1 fL 05/17/2024 6:28 AM [facility] Mean Cell Hemoglobin 29.7 27.5 - 32.1 pg 05/17/2024 6:28 AM [facility] Mean Cell Hemoglobin Concentration 31.0(L) 32.0 - 35.7 g/dL 05/17/2024 6:28 AM [facility] Platelet 341 145 - 357 x10(3)/mc L 05/17/2024 6:28 AM [facility] Mean Platelet Volume 10.4 7.6 - 12.9 fL 05/17/2024 6:28 AM [facility] RDW Standard Deviation 56.5(H) 36.0 - 45.0 fL 05/17/2024 6:28 AM [facility] RDW coefficient of variation 15.7(H) 11.4 - 13.8 % 05/17/2024 6:28 AM [facility] NRBC% auto 0.0 % 05/17/2024 6:28 AM [facility] NRBC Absolute 0.00 0.00 - 0.00 x10(3)/mc L 05/17/2024 6:28 AM [facility] Neutrophil % 76.3 % 05/17/2024 6:28 AM [facility] Neutrophil Absolute 6.57(H) 1.70 - 6.10 x10(3)/mc L 05/17/2024 6:28 AM [facility] Lymph % 9.9 % 05/17/2024 6:28 AM [facility] Lymph Absolute 0.85(L) 0.90 - 3.20 x10(3)/mc L 05/17/2024 6:28 AM [facility] Monocyte % 11.7 % 05/17/2024 6:28 AM EDT [facility] Monocyte Absolute 1.01(H) 0.30 - 0.90 x10(3)/mc L 05/17/2024 6:28 AM EDT [facility] Eos % 0.8 % 05/17/2024 6:28 AM EDT [facility] Eos Absolute 0.07 0.00 - 0.40 x10(3)/mc L 05/17/2024 6:28 AM EDT [facility] Basophil % 0.1 % 05/17/2024 6:28 AM EDT [facility] Baso Absolute 0.01 0.00 - 0.10 x10(3)/mc L 05/17/2024 6:28 AM EDT [facility] Immature Gran % 1.2 % 6:28 AM EDT [facility] Immature Gran Absolute 0.10(H) 0.00 - 0.04 x10(3)/mc L 05/17/2024 6:28 AM EDT [facility] Blood IP Care Team Dra reilly / Nick 05/17/2024 5:49 AM EDT 05/17/2024 6:13 AM EDT Mary De La Fuente MD HEMATOLOGY ORDERAB LES [facility] [place] [address] * Vancomycin Level, Random (05/17/2024 5:49 AM EDT) Vancomycin, Random 22.4 mg/L 2023 6:58 AM EDT [facility] Comment:This level is for de termination of the patient's vancomycin tmcj-naojj-avu-curve (AUC) value. Contact the inpatient pharmacy for interpretation. Blood IP Care Team Dra reilly / Nick 05/17/2024 5:49 AM EDT 05/17/2024 6:13 AM EDT Treva Diaz MD CHEMISTRY ORDERABL ES Performing Organization Address City/[facility]/ZIP Co de Phone Number [facility] [place] [address] * POC, GLUCOSE (05/17/2024 3:54 AM EDT) Glucometer, POC 135 65 - 199 mg/dL 05/17/2024 3:55 AM EDT [facility] Comment:Supplemental ranges: <140 mg/dL before meals <180 mg/dL all other times of the day. Blood CAPILLARY BLOOD / Unknown 05/17/2024 3:54 AM EDT 05/17/2024 3:55 AM EDT Treva Diaz MD POINT OF CARE TEST ORDERABLES Performing Organization Address [facility]/ZIP Co de Phone Number [facility] [address] * POCT Glucose (05/16/2024 11:46 PM EDT) Glucose, POC 148 65 - 199 mg/dL [facility] Comment: Supplemental ranges: <140 mg/dL before meals <180 mg/dL all other times of the day Blood 05/16/2024 11:4 6 PM EDT 05/16/2024 11:46 PM EDT Treva Diaz MD POINT OF CARE TEST ORDERABLES Performing Organization Address City/[facility]/ZIP Co de Phone Number [facility] [place] [address] * POCT Glucose (05/16/2024 9:06 PM EDT) Glucose, POC 191 65 - 199 mg/dL [facility] Comment: Supplemental ranges: <140 mg/dL before meals <180 mg/dL all other times of the day Blood 05/16/2024 9:06 PM EDT 05/16/2024 9:06 PM EDT Treva Diaz MD POINT OF CARE TEST ORDERABLES [facility] [address] * POCT Glucose (05/16/2024 8:04 PM EDT) Glucose, POC 199 65 - 199 mg/dL [facility] Comment: Supplemental ranges: <140 mg/dL before meals <180 mg/dL all other times of the day Blood 05/16/2024 8:04 PM EDT 05/16/2024 8:04 PM EDT Treva Diaz MD POINT OF CARE TEST ORDERABLES Performing Organization Address City/[facility]/ZIP Co de Phone Number [facility] [place] [address] * POCT Glucose (05/16/2024 4:51 PM EDT) Glucose, POC 162 65 - 199 mg/dL [facility] Comment: Supplemental ranges: <140 mg/dL before meals <180 mg/dL all other times of the day Blood 05/16/2024 4:51 PM EDT 05/16/2024 4:51 PM EDT Treva Diaz MD POINT OF CARE TEST ORDERABLES [facility] [place] [address] * POCT Glucose (05/16/2024 12:48 PM EDT) Glucose, POC 153 65 - 199 mg/dL [facility] Comment: Supplemental ranges: <140 mg/dL before meals <180 mg/dL all other times of the day Blood 05/16/2024 12:4 8 PM EDT 05/16/2024 12:48 PM EDT Treva Diaz MD POINT OF CARE TEST ORDERABLES [facility] [address] * POCT Glucose (05/16/2024 8:45 AM EDT) [facility] Glucose, POC 165 65 - 199 mg/dL [facility] Comment: Supplemental ranges: <140 mg/dL before meals <180 mg/dL all other times of the day Blood 05/16/2024 8:45 AM EDT 05/16/2024 8:45 AM EDT Treva Diaz MD POINT OF CARE TEST ORDERABLES Performing Organization Address City/[facility]/ZIP Co de Phone Number [facility] [place] [address] * (ABNORMAL) Differential, Automated (05/16/2024 5:14 AM EDT) [facility] Neutrophil % 79.4 % [facility] Neutrophil Absolute 9.22(H) 1.70 - 6.10 x10(3)/mc L [facility] Lymph % 6.6 % [facility] Lymphocytes Abs 0.8(L) 0.9 - 3.2 x10(3)/mc L [facility] Monocyte % 9.5 % [facility] Monocyte Abs 1.1(H) 0.3 - 0.9 x10(3)/mc L [facility] Eos % 0.0 % [facility] Eosinophils Abs 0.0 0.0 - 0.4 x10(3)/mc L [facility] Basophil % 0.2 % [facility] Baso Absolute 0.0 0.0 - 0.1 x10(3)/mc L [facility] Immature Gran % 4.30 % [facility] Comment: Immature granulocytes(IG's)percentage and absolute count will include metamyelocytes, myelocytes, and promyelocytes. Blood smears from CBCs yielding IG's will be scanned manually for concordance. If this scan disagrees with the automated IG or if promyelocytes are noted, a manual differential will be performed. Immature Gran Absolute 0.50(H) 0.00 - 0.04 x10(3)/ L [facility] Blood 05/16/2024 5:14 AM EDT 05/16/2024 5:38 AM EDT Narrative Resulting Agency Comment Spec In Lab Carlotta Davis MD HEMATOLOGY OR DERABLES [facility] [place] [address] * (ABNORMAL) Hemogram (05/16/2024 5:14 AM EDT) White Blood Cell 11.6(H) 4.0 - 9.5 x10(3)/[facility] Red Blood Cell 3.59(L) 4.58 - 5.54 x10(6)/mc L [facility] Hemoglobin 10.5(L) 13.7 - 16.5 g/dL [facility] Hematocrit 33.8(L) 40.5 - 48.5 % [facility] Mean Cell Volume 94.2(H) 82.9 - 93.1 fL [facility] Mean Cell Hemoglobin 29.2 27.5 - 32.1 pg [facility] Mean Cell Hemoglobin Concentration 31.1(L) 32.0 - 35.7 g/dL [facility] Platelet 317 145 - 357 x10(3)/mc L [facility] RDW Standard Deviation 55.1(H) 36.0 - 45.0 fL [facility] RDW coefficient of variation 15.9(H) 11.4 - 13.8 % [facility] Mean Platelet Volume 10.6 7.6 - 12.9 fL [facility] NRBC% auto 0.0 % [facility] NRBC Absolute 0.000 0.000 - 0.000 x10(3)/mc L [facility] Blood 05/16/2024 5:14 AM EDT 05/16/2024 5:38 AM EDT Narrative Resulting Agency Comment Spec In Lab Carlotta Davis MD HEMATOLOGY OR DERABLES Performing Organization Address City/[facility]/ZIP Co de Phone Number [facility] [place] [address] * (ABNORMAL) Magnesium (05/16/2024 5:14 AM EDT) Magnesium 1.22(H) 0.69 - 1.07 mmol/L [facility] Blood 05/16/2024 5:14 AM EDT 05/16/2024 5:38 AM EDT Narrative Resulting Agency Comment Spec In Lab Mary De La Fuente MD CHEMISTRY ORDERABL ES Performing Organization Address [facility] Co de Phone Number [facility] [place] [address] * (ABNORMAL) Phosphorus (05/16/2024 5:14 AM EDT) Phosphorus 6.3(H) 2.5 - 4.5 mg/dL [facility] Blood 05/16/2024 5:14 AM EDT 05/16/2024 5:38 AM EDT Narrative Resulting Agency Comment Spec In Lab Mary De La Fuente MD CHEMISTRY ORDERABL ES Performing Organization Address [facility] Co de Phone Number [facility] [place] [address] * (ABNORMAL) Basic Metabolic Panel (non-fasting) (05/16/2024 5:14 AM EDT) Glucose 154 65 - 199 mg/dL [facility] Comment:Diabetes: >=200 mg/d L plus symptoms Blood Urea Nitrogen 74(H) 10 - 20 mg/dL [facility] Creatinine 2.88(H) 0.80 - 1.50 mg/dL [facility] Sodium 133(L) 135 - 145 mmol/L [facility] Potassium 5.0 3.5 - 5.0 mmol/L [facility] Comment: Please note: ??Patients with WBC >100,000 may have falsely elevated Potassium levels. ??For accurate Potassium quantification in these patients send serum separator tube (gold top) for subsequent determinations. ??Contact the Clinical Chemistry Laboratory if there are any questions. Chloride 101 98 - 107 mmol/L [facility] Carbon Dioxide 21(L) 22 - 31 mmol/L [facility] Anion Gap 11 5 - 15 mmol/L [facility] Calcium 8.8 8.5 - 10.5 mg/dL [facility] Est Glomerular Filtration Rate 23(L) >=60 mL/min/1. 73 m?? [facility] Comment: This patient's estimated [...] De La Fuente MD CHEMISTRY ORDERABL ES [facility] [place] [place] [address] * Vancomycin Level, Random (05/16/2024 5:14 AM EDT) Vancomycin, Random 29.1 mg/L [facility] Comment: This level is for determination of the patient's vancomycin dzcy-ruohs-loa-curve (AUC) value. Contact the inpatient pharmacy for interpretation. Blood 05/16/2024 5:14 AM EDT 05/16/2024 5:38 AM EDT Treva Diaz MD CHEMISTRY ORDERABL ES Performing Organization Address City/[facility]/ZIP Co de Phone Number [facility] [place] [place] [address] * POCT Glucose (05/16/2024 3:53 AM EDT) Glucose, POC 166 65 - 199 mg/dL [facility] Comment: Supplemental ranges: <140 mg/dL before meals <180 mg/dL all other times of the day Blood 05/16/2024 3:53 AM EDT 05/16/2024 3:53 AM EDT Treva Diaz MD POINT OF CARE TEST ORDERABLES Performing Organization Address [facility]/ZIP Co de Phone Number [facility] [place] [address] * POCT Glucose (05/15/2024 11:41 PM EDT) Glucose, POC 171 65 - 199 mg/dL [facility] Comment: Supplemental ranges: <140 mg/dL before meals <180 mg/dL all other times of the day Blood 05/15/2024 11:4 1 PM EDT 05/15/2024 11:41 PM EDT Treva Diaz MD POINT OF CARE TEST ORDERABLES Performing Organization Address City/[facility]/ZIP Co de Phone Number [facility] [place] [place] [address] * POCT Glucose (05/15/2024 10:32 PM EDT) Glucose, POC 183 65 - 199 mg/dL [facility] Comment: Supplemental ranges: <140 mg/dL before meals <180 mg/dL all other times of the day Blood 05/15/2024 10:3 2 PM EDT 05/15/2024 10:32 PM EDT Treva Diaz MD POINT OF CARE TEST ORDERABLES Performing Organization Address City/[facility]/ZIP Co de Phone Number [facility] [place] [address] * POCT Glucose (05/15/2024 7:53 PM EDT) Pathologist [facility] Glucose, POC 187 65 - 199 mg/dL [facility] Comment: Supplemental ranges: <140 mg/dL before meals <180 mg/dL all other times of the day Blood 05/15/2024 7:53 PM EDT 05/15/2024 7:53 PM EDT Treva Diaz MD POINT OF CARE TEST ORDERABLES Performing Organization Address City/[facility]/ZIP Co de Phone Number [facility] [place] [place] [address] * MRSA PCR Screen ([facility]) (05/15/2024 4:15 PM EDT) [facility] MRSA PCR Negative Negative [facility] MRSA (Interp) Methicillin-resist ant Staphylococcus aureus (MRSA) is NOT DETECTED The MRSA target DNA sequences (mec and SCC) were not detected within the acceptable ranges using the Xpert MRSA NxG on the GeneXpert Dx System ([employer]). This suggests the absence of MRSA in the patient specimen submitted for testing. This test is cleared by the U.S. Food and Drug Administration for clinical use and its performance characteristics have been verified by the [facility] at [facility]. This result does not rule out the presence of any other organisms. Rare false negative results may occur if MRSA is present at low concentrations with much higher concentrations of other organisms including MRSE or S. aureus with an empty SCC cassette. [facility] Comment: [VERIFIED DATE]05.15.24 Verified By:Lupe Jensen (Electronic Signature) Nasopharyngeal Swab 05/15/20 4:15 PM EDT 05/15/2024 6:28 PM EDT Comment:Specimen Type->Nasop haryngeal Swab Narrative Resulting Agency Comment Spec In Lab Treva Diaz MD MOLECULAR ORDERABL ES [facility] [place] [place] [address] * (ABNORMAL) POCT Glucose (05/15/2024 3:20 PM EDT) Glucose, POC 224(H) 65 - 199 mg/dL [facility] Comment: Supplemental ranges: <140 mg/dL before meals <180 mg/dL all other times of the day Blood 05/15/2024 3:20 PM EDT 05/15/2024 3:20 PM EDT Treva Diaz MD POINT OF CARE TEST ORDERABLES Performing Organization Address [facility]/ZIP Co de Phone Number [facility] [place] [address] * (ABNORMAL) POCT Glucose (05/15/2024 11:39 AM EDT) Glucose, POC 213(H) 65 - 199 mg/dL [facility] Comment: Supplemental ranges: <140 mg/dL before meals <180 mg/dL all other times of the day Blood 05/15/2024 11:3 9 AM EDT 05/15/2024 11:39 AM EDT Treva Diaz MD POINT OF CARE TEST ORDERABLES Performing Organization Address City/[facility]/ZIP Co de Phone Number [facility] [place] [address] * POCT Glucose (05/15/2024 8:02 AM EDT) Glucose, POC 190 65 - 199 mg/dL [facility] Comment: Supplemental ranges: <140 mg/dL before meals <180 mg/dL all other times of the day Blood 05/15/2024 8:02 AM EDT 05/15/2024 8:02 AM EDT Treva Diaz MD POINT OF CARE TEST ORDERABLES Performing Organization Address City/State/[facility] Co de Phone Number [facility] [place] [address] * (ABNORMAL) Differential, Automated (05/15/2024 5:12 AM EDT) Pathologist [facility] Neutrophil % 85.3 % [facility] Neutrophil Absolute 11.37(H) 1.70 - 6.10 x10(3)/mc L [facility] Lymph % 3.7 % [facility] Lymphocytes Abs 0.5(L) 0.9 - 3.2 x10(3)/mc L [facility] Monocyte % 9.1 % [facility] Monocyte Abs 1.2(H) 0.3 - 0.9 x10(3)/mc L [facility] Eos % 0.0 % [facility] Eosinophils Abs 0.0 0.0 - 0.4 x10(3)/mc L [facility] Basophil % 0.1 % [facility] Baso Absolute 0.0 0.0 - 0.1 x10(3)/mc L [facility] Immature Gran % 1.80 % [facility] Comment: Immature granulocytes(IG's)percentage and absolute count will include metamyelocytes, myelocytes, and promyelocytes. Blood smears from CBCs yielding IG's will be scanned manually for concordance. If this scan disagrees with the automated IG or if promyelocytes are noted, a manual differential will be performed. Immature Gran Absolute 0.24(H) 0.00 - 0.04 x10(3)/mc L [facility] Blood 05/15/2024 5:12 AM EDT 05/15/2024 5:38 AM EDT Narrative Resulting Agency Comment Spec In Lab Carlotta Davis MD HEMATOLOGY OR DERABLES [facility] [place] [place] [address] * (ABNORMAL) Hemogram (05/15/2024 5:12 AM EDT) White Blood Cell 13.4(H) 4.0 - 9.5 x10(3)/mc L [facility] Red Blood Cell 3.58(L) 4.58 - 5.54 x10(6)/mc L [facility] Hemoglobin 10.9(L) 13.7 - 16.5 g/dL [facility] Hematocrit 34.1(L) 40.5 - 48.5 % [facility] Mean Cell Volume 95.3(H) 82.9 - 93.1 fL [facility] Mean Cell Hemoglobin 30.4 27.5 - 32.1 pg [facility] Mean Cell Hemoglobin Concentration 32.0 32.0 - 35.7 g/dL [facility] Platelet 227 145 - 357 x10(3)/mc L [facility] RDW Standard Deviation 55.8(H) 36.0 - 45.0 fL [facility] RDW coefficient of variation 15.8(H) 11.4 - 13.8 % [facility] Mean Platelet Volume 10.7 7.6 - 12.9 fL [facility] NRBC% auto 0.0 % [facility] NRBC Absolute 0.000 0.000 - 0.000 x10(3)/mc L [facility] Blood 05/15/2024 5:12 AM EDT 05/15/2024 5:38 AM EDT Narrative Resulting Agency Comment Spec In Lab Carlotta Davis MD HEMATOLOGY OR DERABLES Performing Organization Address [facility] Co de Phone Number [facility] [place] [address] * (ABNORMAL) Magnesium (05/15/2024 5:12 AM EDT) Magnesium 1.21(H) 0.69 - 1.07 mmol/L [facility] Blood 05/15/2024 5:12 AM EDT 05/15/2024 5:38 AM EDT Narrative Resulting Agency Comment Spec In Lab Mary De La Fuente MD CHEMISTRY ORDERABL ES Performing Organization Address [facility] Co de Phone Number [facility] [place] [address] * (ABNORMAL) Phosphorus (05/15/2024 5:12 AM EDT) Phosphorus 6.5(H) 2.5 - 4.5 mg/dL [facility] Comment:result rechecked-HN Blood 05/15/2024 5:12 AM EDT 05/15/2024 5:38 AM EDT Narrative Resulting Agency Comment Spec In Lab Mary De La Fuente MD CHEMISTRY ORDERABL ES Performing Organization Address [facility] Co de Phone Number [facility] [place] [address] * (ABNORMAL) Basic Metabolic Panel (non-fasting) (05/15/2024 5:12 AM EDT) Glucose 217(H) 65 - 199 mg/dL [facility] Comment:Diabetes: >=200 mg/d L plus symptoms Blood Urea Nitrogen 58(H) 10 - 20 mg/dL [facility] Creatinine 2.46(H) 0.80 - 1.50 mg/dL [facility] Comment:result rechecked-HN Sodium 135 135 - 145 mmol/L [facility] Potassium 5.2(H) 3.5 - 5.0 mmol/L [facility] Comment: Please note: ??Patients with WBC >100,000 may have falsely elevated Potassium levels. ??For accurate Potassium quantification in these patients send serum separator tube (gold top) for subsequent determinations. ??Contact the Clinical Chemistry Laboratory if there are any questions. Chloride 100 98 - 107 mmol/L [facility] Carbon Dioxide 23 22 - 31 mmol/L [facility] Anion Gap 12 5 - 15 mmol/L [facility] Calcium 8.8 8.5 - 10.5 mg/dL [facility] Est Glomerular Filtration Rate 27(L) >=60 mL/min/1. 73 m?? [facility] Comment: This patient's estimated [...] De La Fuente MD CHEMISTRY ORDERABL ES [facility] [address] * (ABNORMAL) POCT Glucose (05/15/2024 4:55 AM EDT) Glucose, POC 223(H) 65 - 199 mg/dL [facility] Comment: Supplemental ranges: <140 mg/dL before meals <180 mg/dL all other times of the day Blood 05/15/2024 4:55 AM EDT 05/15/2024 4:55 AM EDT Treva Diaz MD POINT OF CARE TEST ORDERABLES Performing Organization Address City/[facility]/ZIP Co de Phone Number [facility] [place] [address] * (ABNORMAL) POCT Glucose (05/15/2024 2:51 AM EDT) Glucose, POC 279(H) 65 - 199 mg/dL [facility] Comment: Supplemental ranges: <140 mg/dL before meals <180 mg/dL all other times of the day Blood 05/15/2024 2:51 AM EDT 05/15/2024 2:51 AM EDT Treva Diaz MD POINT OF CARE TEST ORDERABLES Performing Organization Address [facility] Co de Phone Number [facility] [address] * (ABNORMAL) POCT Glucose (05/14/2024 9:03 PM EDT) Glucose, POC 257(H) 65 - 199 mg/dL [facility] Comment: Supplemental ranges: <140 mg/dL before meals <180 mg/dL all other times of the day Blood 05/14/2024 9:03 PM EDT 05/14/2024 9:03 PM EDT Treva Diaz MD POINT OF CARE TEST ORDERABLES Performing Organization Address City/[facility] Co de Phone Number [facility] [place] [address] * (ABNORMAL) POCT Glucose (05/14/2024 7:15 PM EDT) Glucose, POC 207(H) 65 - 199 mg/dL [facility] Comment: Supplemental ranges: <140 mg/dL before meals <180 mg/dL all other times of the day Blood 05/14/2024 7:15 PM EDT 05/14/2024 7:15 PM EDT Treva Diaz MD POINT OF CARE TEST ORDERABLES Performing Organization Address [facility] Co de Phone Number [facility] [place] * POCT Glucose (05/14/2024 4:47 PM EDT) Glucose, POC 188 65 - 199 mg/dL [facility] Comment: Supplemental ranges: <140 mg/dL before meals <180 mg/dL all other times of the day Blood 05/14/2024 4:47 PM EDT 05/14/2024 4:47 PM EDT Treva Diaz MD POINT OF CARE TEST ORDERABLES Performing Organization Address [facility] Co de Phone Number [facility] [place] [address] * POCT Glucose (05/14/2024 1:21 PM EDT) Glucose, POC 163 65 - 199 mg/dL [facility] Comment: Supplemental ranges: <140 mg/dL before meals <180 mg/dL all other times of the day Blood 05/14/2024 1:21 PM EDT 05/14/2024 1:21 PM EDT Treva Diaz MD POINT OF CARE TEST ORDERABLES Performing Organization Address [facility] Co de Phone Number [facility] [place] [address] * Anaerobic Culture (05/14/2024 11:33 AM EDT) Anaerobic Culture No anaerobic organisms isolated [facility] Toe 05/14/2024 11:3 3 AM EDT 05/14/2024 12:33 PM EDT Comment:PROXIMAL RIGHT 2ND T OE Narrative Resulting Agency Comment Spec In Lab Gennaro Meyers MD MICROBIOLOGY - GENE RAL ORDERABLES Performing Organization Address City/[facility]/ZIP Co de Phone Number [facility] [place] [address] * (ABNORMAL) Tissue culture (05/14/2024 11:33 AM EDT) Tissue Culture One colony of Coagulase negative Staphylococcus species(A) [facility] Gram Stain Few Neutrophils seen Rare Gram Positive Cocci in pairs seen Results called to and read back by Dr. Mihaela Galvan ??05/14/24 14:57:00 (A) [facility] Organism Coagulase negative Staphylococcus species(A) [facility] Organism Gram Positive Cocci in pairs(A) [facility] Toe 05/14/2024 11:3 3 [...] Sensitive Comment:Gentamicin i s not appropriate for Ocean-therapy. Coagulase Negative Staphylococcus species Levofloxacin MICROSCAN METHOD [...] Meyers MD MICROBIOLOGY - GENE RAL ORDERABLES [facility] [place] [address] * Surgical Pathology Report (05/14/2024 11:32 AM EDT) Surgical Pathology Report [id number] ? Location: [id number]; A The signing [...] MD, Shima Verified: ??05/20/2024 11:25 Performed at: ??-[facility] Dept. [place]ology, [place] [address] Therapy Administrative Assistant: Polly Barnhart MD, FCAP, ??CLIA Certificate: [id number] SPECIMEN(S) SUBMITTED A - RIGHT 2ND TOE, [...] Sections/Processi ng: Blocks submitted for decalcification: A1-A2. Subsorter sections in 2 cassettes as follows: ?A1-A2: ??Longitudinal section of digit ??cmk [facility] 05/14/2024 11:3 2 AM EDT Gennaro Meyers MD PATHOLOGY/CYTOLOGY ORDERABLES Performing Organization Address [facility] Co de Phone Number [facility] [address] * Specimen to Pathology (05/14/2024 11:32 AM EDT) AP Specimen 05/14/2024 11:3 2 AM EDT 05/14/2024 11:32 AM EDT Narrative [facility] - 05/14/2024 11:32 AM EDT Specimen requisition ordered. ??Separate Pathology report to follow Treva Diaz MD PATHOLOGY/CYTOLOGY ORDERABLES Performing Organization Address [facility] Co de Phone Number [facility] [place] [address] * (ABNORMAL) POCT Glucose (05/14/2024 7:58 AM EDT) Pathologist [facility] Glucose, POC 203(H) 65 - 199 mg/dL [facility] Comment: Supplemental ranges: <140 mg/dL before meals <180 mg/dL all other times of the day Blood 05/14/2024 7:58 AM EDT 05/14/2024 7:58 AM EDT Treva Diaz MD POINT OF CARE TEST ORDERABLES Performing Organization Address [facility] Co de Phone Number [facility] [place] [address] * (ABNORMAL) Differential, Automated (05/14/2024 5:01 AM EDT) Pathologist [facility] Neutrophil % 80.5 % [facility] Neutrophil Absolute 12.45(H) 1.70 - 6.10 x10(3)/mc L [facility] Lymph % 5.5 % [facility] Lymphocytes Abs 0.8(L) 0.9 - 3.2 x10(3)/mc L [facility] Monocyte % 12.6 % [facility] Monocyte Abs 2.0(H) 0.3 - 0.9 x10(3)/[facility] Eos % 0.3 % [facility] Eosinophils Abs 0.0 0.0 - 0.4 x10(3)/[facility] Basophil % 0.2 % [facility] Baso Absolute 0.0 0.0 - 0.1 x10(3)/[facility] Immature Gran % 0.90 % [facility] Comment: Immature granulocytes(IG's)percentage and [...] MD HEMATOLOGY OR DERABLES Performing Organization Address City/State/[facility] Co de Phone Number [facility] [place] [address] * (ABNORMAL) Hemogram (05/14/2024 5:01 AM EDT) White Blood Cell 15.5(H) 4.0 - 9.5 x10(3)/[facility] Red Blood Cell 3.55(L) 4.58 - 5.54 x10(6)/[facility] Hemoglobin 10.8(L) 13.7 - 16.5 g/dL [facility] Hematocrit 32.8(L) 40.5 - 48.5 % [facility] Mean Cell Volume 92.4 82.9 - 93.1 fL [facility] Mean Cell Hemoglobin 30.4 27.5 - 32.1 pg [facility] Mean Cell Hemoglobin Concentration 32.9 32.0 - 35.7 g/dL [facility] Platelet 190 145 - 357 x10(3)/mc L [facility] RDW Standard Deviation 53.2(H) 36.0 - 45.0 fL [facility] RDW coefficient of variation 15.6(H) 11.4 - 13.8 % [facility] Mean Platelet Volume 11.2 7.6 - 12.9 fL [facility] NRBC% auto 0.0 % [facility] NRBC Absolute 0.000 0.000 - 0.000 x10(3)/mc L [facility] Blood 05/14/2024 5:01 AM EDT 05/14/2024 6:02 AM EDT Narrative Resulting Agency Comment Spec In Lab Carlotta Davis MD HEMATOLOGY OR DERABLES Performing Organization Address City/[facility]/ZIP Co de Phone Number [facility] [address] * Magnesium (05/14/2024 5:01 AM EDT) Magnesium 0.98 0.69 - 1.07 mmol/L [facility] Blood 05/14/2024 5:01 AM EDT 05/14/2024 6:02 AM EDT Narrative Resulting Agency Comment Spec In Lab Mary De La Fuente MD CHEMISTRY ORDERABL ES Performing Organization Address City/[facility]/ZIP Co de Phone Number [facility] [address] * Phosphorus (05/14/2024 5:01 AM EDT) Phosphorus 2.8 2.5 - 4.5 mg/dL [facility] Blood 05/14/2024 5:01 AM EDT 05/14/2024 6:02 AM EDT Narrative Resulting Agency Comment Spec In Lab Mary De La Fuente MD CHEMISTRY ORDERABL ES [facility] [address] * (ABNORMAL) Basic Metabolic Panel (non-fasting) (05/14/2024 5:01 AM EDT) Glucose 172 65 - 199 mg/dL [facility] Comment:Diabetes: >=200 mg/d L plus symptoms Blood Urea Nitrogen 46(H) 10 - 20 mg/dL [facility] Creatinine 1.56(H) 0.80 - 1.50 mg/dL [facility] Sodium 137 135 - 145 mmol/L [facility] Potassium 4.4 3.5 - 5.0 mmol/L [facility] Comment: Please note: ??Patients with WBC >100,000 may have falsely elevated Potassium levels. ??For accurate Potassium quantification in these patients send serum separator tube (gold top) for subsequent determinations. ??Contact the Clinical Chemistry Laboratory if there are any questions. Chloride 105 98 - 107 mmol/L [facility] Carbon Dioxide 22 22 - 31 mmol/L [facility] Anion Gap 10 5 - 15 mmol/L [facility] Calcium 8.7 8.5 - 10.5 mg/dL [facility] Est Glomerular Filtration Rate 47(L) >=60 mL/min/1. 73 m?? [facility] Comment: This patient's estimated [...] MD CHEMISTRY ORDERABL ES Performing Organization Address [facility]/ZIP Co de Phone Number [facility] [place] [address] * Vancomycin Level, Random (05/14/2024 5:01 AM EDT) Vancomycin, Random 13.5 mg/L [facility] Comment: This level is for determination of the patient's vancomycin srbf-kqiwv-cgm-curve (AUC) value. Contact the inpatient pharmacy for interpretation. Blood 05/14/2024 5:01 AM EDT 05/14/2024 6:02 AM EDT Treva Diaz MD CHEMISTRY ORDERABL ES Performing Organization Address [facility] Co de Phone Number [facility] [place] [address] * POCT Glucose (05/13/2024 8:41 PM EDT) Glucose, POC 179 65 - 199 mg/dL [facility] Comment: Supplemental ranges: <140 mg/dL before meals <180 mg/dL all other times of the day Blood 05/13/2024 8:41 PM EDT 05/13/2024 8:41 PM EDT Treva Diaz MD POINT OF CARE TEST ORDERABLES Performing Organization Address [facility]/ZIP Co de Phone Number [facility] [place] [address] * POCT Glucose (05/13/2024 6:06 PM EDT) Glucose, POC 135 65 - 199 mg/dL [facility] Comment: Supplemental ranges: <140 mg/dL before meals <180 mg/dL all other times of the day Blood 05/13/2024 6:06 PM EDT 05/13/2024 6:06 PM EDT Treva Diaz MD POINT OF CARE TEST ORDERABLES [facility] [place] [address] * POCT Glucose (05/13/2024 11:12 AM EDT) Glucose, POC 163 65 - 199 mg/dL [facility] Comment: Supplemental ranges: <140 mg/dL before meals <180 mg/dL all other times of the day Blood 05/13/2024 11:1 2 AM EDT 05/13/2024 11:12 AM EDT Treva Diaz MD POINT OF CARE TEST ORDERABLES Performing Organization Address City/[facility]/ZIP Co de Phone Number [facility] [place] [address] * POCT Glucose (05/13/2024 7:47 AM EDT) Glucose, POC 194 65 - 199 mg/dL [facility] Comment: Supplemental ranges: <140 mg/dL before meals <180 mg/dL all other times of the day Blood 05/13/2024 7:47 AM EDT 05/13/2024 7:47 AM EDT Treva Diaz MD POINT OF CARE TEST ORDERABLES Performing Organization Address City/[facility]/ZIP Co de Phone Number [facility] [place] [address] * Scan, Peripheral Blood (05/13/2024 5:29 AM EDT) Plat estimate Normal [facility] RBC Morphology Abnormal [facility] Sofía Cells 1-5 /HPF [facility] Plat, Giant Less than 1 /HPF [facility] Blood 05/13/2024 5:29 AM EDT 05/13/2024 5:49 AM EDT Narrative Resulting Agency Comment Spec In Lab Carlotta Davis MD HEMATOLOGY OR DERABLES [facility] [place] [address] * (ABNORMAL) Differential, Automated (05/13/2024 5:29 AM EDT) Neutrophil % 81.8 % [facility] Neutrophil Absolute 12.66(H) 1.70 - 6.10 x10(3)/mc L [facility] Lymph % 5.0 % [facility] Lymphocytes Abs 0.8(L) 0.9 - 3.2 x10(3)/mc L [facility] Monocyte % 12.3 % [facility] Monocyte Abs 1.9(H) 0.3 - 0.9 x10(3)/mc L [facility] Eos % 0.2 % [facility] Eosinophils Abs 0.0 0.0 - 0.4 x10(3)/mc L [facility] Basophil % 0.1 % [facility] Baso Absolute 0.0 0.0 - 0.1 x10(3)/mc L [facility] Immature Gran % 0.60 % [facility] Comment: Immature granulocytes(IG's)percentage and absolute count will include metamyelocytes, myelocytes, and promyelocytes. Blood smears from CBCs yielding IG's will be scanned manually for concordance. If this scan disagrees with the automated IG or if promyelocytes are noted, a manual differential will be performed. Immature Gran Absolute 0.09(H) 0.00 - 0.04 x10(3)/mc L [facility] Blood 05/13/2024 5:29 AM EDT 05/13/2024 5:49 AM EDT Narrative Resulting Agency Comment Spec In Lab Carlotta Davis MD HEMATOLOGY OR DERABLES [facility] [place] [address] * (ABNORMAL) Hemogram (05/13/2024 5:29 AM EDT) White Blood Cell 15.5(H) 4.0 - 9.5 x10(3)/mc L [facility] Red Blood Cell 3.64(L) 4.58 - 5.54 x10(6)/mc L [facility] Hemoglobin 10.9(L) 13.7 - 16.5 g/dL [facility] Hematocrit 33.3(L) 40.5 - 48.5 % [facility] Mean Cell Volume 91.5 82.9 - 93.1 fL [facility] Mean Cell Hemoglobin 29.9 27.5 - 32.1 pg [facility] Mean Cell Hemoglobin Concentration 32.7 32.0 - 35.7 g/dL [facility] Platelet 186 145 - 357 x10(3)/mc L [facility] RDW Standard Deviation 53.0(H) 36.0 - 45.0 fL [facility] RDW coefficient of variation 15.8(H) 11.4 - 13.8 % [facility] Mean Platelet Volume 11.8 7.6 - 12.9 fL [facility] NRBC% auto 0.0 % [facility] NRBC Absolute 0.000 0.000 - 0.000 x10(3)/mc L [facility] Blood 05/13/2024 5:29 AM EDT 05/13/2024 5:49 AM EDT Narrative Resulting Agency Comment Spec In Lab Carlotta Davis MD HEMATOLOGY OR DERABLES Performing Organization Address [facility] Co de Phone Number [facility] [place] [address] * Magnesium (05/13/2024 5:29 AM EDT) Pathologist [facility] Magnesium 0.99 0.69 - 1.07 mmol/L [facility] Blood 05/13/2024 5:29 AM EDT 05/13/2024 5:49 AM EDT Narrative Resulting Agency Comment Spec In Lab Mary De La Fuente MD CHEMISTRY ORDERABL ES Performing Organization Address [facility] Co de Phone Number [facility] [place] [address] * Phosphorus (05/13/2024 5:29 AM EDT) [facility] Phosphorus 2.7 2.5 - 4.5 mg/dL [facility] Blood 05/13/2024 5:29 AM EDT 05/13/2024 5:49 AM EDT Narrative Resulting Agency Comment Spec In Lab Mary De La Fuente MD CHEMISTRY ORDERABL ES Performing Organization Address [facility] de Phone Number [facility] [place] [place] [address] * (ABNORMAL) Basic Metabolic Panel (non-fasting) (05/13/2024 5:29 AM EDT) [facility] Glucose 166 65 - 199 mg/dL [facility] Comment:Diabetes: >=200 mg/d L plus symptoms Blood Urea Nitrogen 57(H) 10 - 20 mg/dL [facility] Creatinine 1.53(H) 0.80 - 1.50 mg/dL [facility] Sodium 137 135 - 145 mmol/L [facility] Potassium 4.4 3.5 - 5.0 mmol/L [facility] Comment: Please note: ??Patients with WBC >100,000 may have falsely elevated Potassium levels. ??For accurate Potassium quantification in these patients send serum separator tube (gold top) for subsequent determinations. ??Contact the Clinical Chemistry Laboratory if there are any questions. Chloride 104 98 - 107 mmol/L [facility] Carbon Dioxide 24 22 - 31 mmol/L [facility] Anion Gap 9 5 - 15 mmol/L [facility] Calcium 8.7 8.5 - 10.5 mg/dL [facility] Est Glomerular Filtration Rate 49(L) >=60 mL/min/1. 73 m?? [facility] Comment: This patient's estimated [...] MD CHEMISTRY ORDERABL ES Performing Organization Address City/[facility]/ZIP Co de Phone Number [facility] [place] [address] * POCT Glucose (05/12/2024 11:46 PM EDT) Glucose, POC 165 65 - 199 mg/dL [facility] Comment: Supplemental ranges: <140 mg/dL before meals <180 mg/dL all other times of the day Blood 05/12/2024 11:4 6 PM EDT 05/12/2024 11:46 PM EDT Treva Diaz MD POINT OF CARE TEST ORDERABLES [facility] [address] * POCT Glucose (05/12/2024 8:36 PM EDT) Glucose, POC 164 65 - 199 mg/dL [facility] Comment: Supplemental ranges: <140 mg/dL before meals <180 mg/dL all other times of the day Blood 05/12/2024 8:36 PM EDT 05/12/2024 8:36 PM EDT Treva Diaz MD POINT OF CARE TEST ORDERABLES Performing Organization Address City/[facility]/ZIP Co de Phone Number [facility] [place] [address] * POCT Glucose (05/12/2024 5:38 PM EDT) Glucose, POC 175 65 - 199 mg/dL [facility] Comment: Supplemental ranges: <140 mg/dL before meals <180 mg/dL all other times of the day Blood 05/12/2024 5:38 PM EDT 05/12/2024 5:38 PM EDT Treva Diaz MD POINT OF CARE TEST ORDERABLES Performing Organization Address [facility] Co de Phone Number [facility] [place] [address] * Vancomycin Level, Random (05/12/2024 2:10 PM EDT) Vancomycin, Random 22.3 mg/L [facility] Comment: This level is for determination of the patient's vancomycin ypyj-bjnmr-qqg-curve (AUC) value. Contact the inpatient pharmacy for interpretation. Blood 05/12/2024 2:10 PM EDT 05/12/2024 2:23 PM EDT Treva Diaz MD CHEMISTRY ORDERABL ES Performing Organization Address City/[facility]/ZIP Co de Phone Number [facility] [place] [address] * POCT Glucose (05/12/2024 1:42 PM EDT) Glucose, POC 168 65 - 199 mg/dL [facility] Comment: Supplemental ranges: <140 mg/dL before meals <180 mg/dL all other times of the day Blood 05/12/2024 1:42 PM EDT 05/12/2024 1:42 PM EDT Treva Diaz MD POINT OF CARE TEST ORDERABLES [facility] [place] [address] * Duplex for DVT, Leg, Unilat (05/12/2024 10:19 AM EDT) [facility] VB Text Report Department: Vascular Surgery Lab Patient: [id number] (JOSSY SHANKS) CPT: 73411 Referring Physician: MARY DE LA FUENTE ?? [...] Glucose, POC 161 65 - 199 mg/dL [facility] Comment: Supplemental ranges: <140 mg/dL before meals <180 mg/dL all other times of the day Blood 05/12/2024 9:00 AM EDT 05/12/2024 9:00 AM EDT Treva Diaz MD POINT OF CARE TEST ORDERABLES Performing Organization Address [facility] Co de Phone Number [facility] [place] [place] [address] * (ABNORMAL) Sedimentation rate (05/12/2024 4:45 AM EDT) [facility] Sedimentation Rate Automated >119(H) 3 - 46 mm/hr [facility] Comment: Effective September 24, [...] MD HEMATOLOGY ORDERABLE S Performing Organization Address [facility] Co de Phone Number [facility] [place] [address] * (ABNORMAL) CRP, acute inflammation (05/12/2024 4:45 AM EDT) [facility] C-Reactive Protein 152.4(H) <=4.9 mg/L [facility] Blood Venous Draw / Unknown 05/12/2024 4:45 AM EDT 05/12/2024 5:12 AM EDT Narrative Resulting Agency Comment Spec In Lab Juan José Harrison MD CHEMISTRY ORDERABLES Performing Organization Address [facility] Co de Phone Number [facility] [place] [address] * (ABNORMAL) Differential, Automated (05/12/2024 4:45 AM EDT) Neutrophil % 87.9 % [facility] Neutrophil Absolute 17.31(H) 1.70 - 6.10 x10(3)/[facility] Lymph % 3.9 % [facility] Lymphocytes Abs 0.8(L) 0.9 - 3.2 x10(3)/[facility] Monocyte % 7.4 % [facility] Monocyte Abs 1.4(H) 0.3 - 0.9 x10(3)/[facility] Eos % 0.0 % [facility] Eosinophils Abs 0.0 0.0 - 0.4 x10(3)/[facility] Basophil % 0.1 % [facility] Baso Absolute 0.0 0.0 - 0.1 x10(3)/[facility] Immature Gran % 0.70 % [facility] Comment: Immature granulocytes(IG's)percentage and absolute count will include metamyelocytes, myelocytes, and promyelocytes. Blood smears from CBCs yielding IG's will be scanned manually for concordance. If this scan disagrees with the automated IG or if promyelocytes are noted, a manual differential will be performed. Immature Gran Absolute 0.14(H) 0.00 - 0.04 x10(3)/[facility] Blood 05/12/2024 4:45 AM EDT 05/12/2024 5:06 AM EDT Narrative Resulting Agency Comment Spec In Lab Carlotta Davis MD HEMATOLOGY OR DERABLES [facility] [place] [address] * (ABNORMAL) Hemogram (05/12/2024 4:45 AM EDT) White Blood Cell 19.7(H) 4.0 - 9.5 x10(3)/[facility] Red Blood Cell 3.58(L) 4.58 - 5.54 x10(6)/ L [facility] Hemoglobin 10.9(L) 13.7 - 16.5 g/dL [facility] Hematocrit 33.1(L) 40.5 - 48.5 % [facility] Mean Cell Volume 92.5 82.9 - 93.1 fL [facility] Mean Cell Hemoglobin 30.4 27.5 - 32.1 pg [facility] Mean Cell Hemoglobin Concentration 32.9 32.0 - 35.7 g/dL [facility] Platelet 165 145 - 357 x10(3)/[facility] RDW Standard Deviation 53.2(H) 36.0 - 45.0 [facility] RDW coefficient of variation 15.7(H) 11.4 - 13.8 % [facility] Mean Platelet Volume 12.1 7.6 - 12.9 [facility] NRBC% auto 0.0 % [facility] NRBC Absolute 0.000 0.000 - 0.000 x10(3)/[facility] Blood 05/12/2024 4:45 AM EDT 05/12/2024 5:06 AM EDT Narrative Resulting Agency Comment Spec In Lab Carlotta Davis MD HEMATOLOGY OR DERABLES [facility] [place] [address] * Magnesium (05/12/2024 4:45 AM EDT) Magnesium 1.07 0.69 - 1.07 mmol/L [facility] Blood 05/12/2024 4:45 AM EDT 05/12/2024 5:06 AM EDT Narrative Resulting Agency Comment Spec In Lab Mary De La Fuente MD CHEMISTRY ORDERABL ES [facility] [address] * Phosphorus (05/12/2024 4:45 AM EDT) Phosphorus 2.7 2.5 - 4.5 mg/dL [facility] Blood 05/12/2024 4:45 AM EDT 05/12/2024 5:06 AM EDT Narrative Resulting Agency Comment Spec In Lab Mary De La Fuente MD CHEMISTRY ORDERABL ES Performing Organization Address [facility] Co de Phone Number [facility] [address] * (ABNORMAL) Basic Metabolic Panel (non-fasting) (05/12/2024 4:45 AM EDT) Glucose 156 65 - 199 mg/dL [facility] Comment:Diabetes: >=200 mg/d L plus symptoms Blood Urea Nitrogen 72(H) 10 - 20 mg/dL [facility] Creatinine 2.03(H) 0.80 - 1.50 mg/dL [facility] Sodium 135 135 - 145 mmol/L [facility] Potassium 4.5 3.5 - 5.0 mmol/L [facility] Comment: Please note: ??Patients with WBC >100,000 may have falsely elevated Potassium levels. ??For accurate Potassium quantification in these patients send serum separator tube (gold top) for subsequent determinations. ??Contact the Clinical Chemistry Laboratory if there are any questions. Chloride 101 98 - 107 mmol/L [facility] Carbon Dioxide 24 22 - 31 mmol/L [facility] Anion Gap 10 5 - 15 mmol/L [facility] Calcium 8.4(L) 8.5 - 10.5 mg/dL [facility] Est Glomerular Filtration Rate 35(L) >=60 mL/min/1. 73 m?? [facility] Comment: This patient's estimated [...] De La Fuente MD CHEMISTRY ORDERABL ES [facility] [place] [address] * ANGY, legs, multiple levels (05/12/2024 3:22 AM EDT) VB Text Report Department: Vascular Surgery Lab Patient: [id number] (JOSSY SHANKS) CPT: [id number] Referring Physician: THO DICKSON ?? Phone: Indications: [...] MD VASCULAR ORDERABLE S Performing Organization Address [facility] Phone Number [facility] * (ABNORMAL) POCT Glucose (05/11/2024 8:14 PM EDT) Glucose, POC 201(H) 65 - 199 mg/dL [facility] Comment: Supplemental ranges: <140 mg/dL before meals <180 mg/dL all other times of the day Blood 05/11/2024 8:14 PM EDT 05/11/2024 8:14 PM EDT Treva Diaz MD POINT OF CARE TEST ORDERABLES Performing Organization Address [facility] de Phone Number [facility] [place] [address] * Vancomycin Level, Random (05/11/2024 8:10 PM EDT) Vancomycin, Random 21.7 mg/L [facility] Comment: This level is for determination of the patient's vancomycin ymyp-rmvpw-hoe-curve (AUC) value. Contact the inpatient pharmacy for interpretation. Blood 05/11/2024 8:10 PM EDT 05/11/2024 8:32 PM EDT Treva Diaz MD CHEMISTRY ORDERABL ES Performing Organization Address [facility] de Phone Number [facility] [place] [address] * POCT Glucose (05/11/2024 4:34 PM EDT) Glucose, POC 197 65 - 199 mg/dL [facility] Comment: Supplemental ranges: <140 mg/dL before meals <180 mg/dL all other times of the day Blood 05/11/2024 4:34 PM EDT 05/11/2024 4:34 PM EDT Treva Diaz MD POINT OF CARE TEST ORDERABLES Performing Organization Address City/[facility] Co de Phone Number [facility] [place] [address] * (ABNORMAL) POCT Glucose (05/11/2024 11:47 AM EDT) Glucose, POC 255(H) 65 - 199 mg/dL [facility] Comment: Supplemental ranges: <140 mg/dL before meals <180 mg/dL all other times of the day Blood 05/11/2024 11:4 7 AM EDT 05/11/2024 11:47 AM EDT Treva Diaz MD POINT OF CARE TEST ORDERABLES Performing Organization Address [facility] Co de Phone Number [facility] [place] [address] * (ABNORMAL) POCT Glucose (05/11/2024 6:57 AM EDT) Glucose, POC 200(H) 65 - 199 mg/dL [facility] Comment: Supplemental ranges: <140 mg/dL before meals <180 mg/dL all other times of the day Blood 05/11/2024 6:57 AM EDT 05/11/2024 6:57 AM EDT Treva Diaz MD POINT OF CARE TEST ORDERABLES Performing Organization Address City/[facility]/ZIP Co de Phone Number [facility] [place] [address] * (ABNORMAL) Differential, Automated (05/11/2024 2:00 AM EDT) Neutrophil % 85.8 % [facility] Neutrophil Absolute 22.16(H) 1.70 - 6.10 x10(3)/mc L [facility] Lymph % 1.5 % [facility] Lymphocytes Abs 0.4(L) 0.9 - 3.2 x10(3)/mc L [facility] Monocyte % 4.9 % [facility] Monocyte Abs 1.3(H) 0.3 - 0.9 x10(3)/mc L [facility] Eos % 0.0 % [facility] Eosinophils Abs 0.0 0.0 - 0.4 x10(3)/ L [facility] Basophil % 0.1 % [facility] Baso Absolute 0.0 0.0 - 0.1 x10(3)/ L [facility] Immature Gran % 7.70 % [facility] Comment: Immature granulocytes(IG's)percentage and absolute count will include metamyelocytes, myelocytes, and promyelocytes. Blood smears from CBCs yielding IG's will be scanned manually for concordance. If this scan disagrees with the automated IG or if promyelocytes are noted, a manual differential will be performed. Immature Gran Absolute 1.98(H) 0.00 - 0.04 x10(3)/ L [facility] Blood 05/11/2024 2:00 AM EDT 05/11/2024 2:07 AM EDT Narrative Resulting Agency Comment Spec In Lab Carlotta Davis MD HEMATOLOGY OR DERABLES Performing Organization Address City/State/[facility] Co de Phone Number [facility] [place] [address] * (ABNORMAL) Hemogram (05/11/2024 2:00 AM EDT) White Blood Cell 25.8(H) 4.0 - 9.5 x10(3)/ L [facility] Red Blood Cell 3.64(L) 4.58 - 5.54 x10(6)/mc L [facility] Hemoglobin 10.9(L) 13.7 - 16.5 g/dL [facility] Hematocrit 32.5(L) 40.5 - 48.5 % [facility] Mean Cell Volume 89.3 82.9 - 93.1 fL [facility] Mean Cell Hemoglobin 29.9 27.5 - 32.1 pg [facility] Mean Cell Hemoglobin Concentration 33.5 32.0 - 35.7 g/dL [facility] Platelet 141(L) 145 - 357 x10(3)/mc L [facility] RDW Standard Deviation 51.2(H) 36.0 - 45.0 fL [facility] RDW coefficient of variation 15.6(H) 11.4 - 13.8 % [facility] Mean Platelet Volume 12.9 7.6 - 12.9 fL [facility] NRBC% auto 0.0 % [facility] NRBC Absolute 0.000 0.000 - 0.000 x10(3)/mc L [facility] Blood 05/11/2024 2:00 AM EDT 05/11/2024 2:07 AM EDT Narrative Resulting Agency Comment Spec In Lab Carlotta Davis MD HEMATOLOGY OR DERABLES Performing Organization Address City/[facility]/ZIP Co de Phone Number [facility] [place] [address] * Magnesium (05/11/2024 2:00 AM EDT) Magnesium 1.01 0.69 - 1.07 mmol/L [facility] Blood 05/11/2024 2:00 AM EDT 05/11/2024 2:07 AM EDT Narrative Resulting Agency Comment Spec In Lab Mary De La Fuente MD CHEMISTRY ORDERABL ES Performing Organization Address [facility]/ZIP Co de Phone Number [facility] [place] [id number] * Phosphorus (05/11/2024 2:00 AM EDT) Phosphorus 4.0 2.5 - 4.5 mg/dL [facility] Blood 05/11/2024 2:00 AM EDT 05/11/2024 2:07 AM EDT Narrative Resulting Agency Comment Spec In Lab Mary De La Fuente MD CHEMISTRY ORDERABL ES [facility] [place] [address] * (ABNORMAL) Basic Metabolic Panel (non-fasting) (05/11/2024 2:00 AM EDT) Glucose 212(H) 65 - 199 mg/dL [facility] Comment:Diabetes: >=200 mg/d L plus symptoms Blood Urea Nitrogen 72(H) 10 - 20 mg/dL [facility] Creatinine 2.58(H) 0.80 - 1.50 mg/dL [facility] Comment:result rechecked-HN Sodium 136 135 - 145 mmol/L [facility] Potassium 4.7 3.5 - 5.0 mmol/L [facility] Comment: Please note: ??Patients with WBC >100,000 may have falsely elevated Potassium levels. ??For accurate Potassium quantification in these patients send serum separator tube (gold top) for subsequent determinations. ??Contact the Clinical Chemistry Laboratory if there are any questions. Chloride 100 98 - 107 mmol/L [facility] Carbon Dioxide 24 22 - 31 mmol/L [facility] Anion Gap 12 5 - 15 mmol/L [facility] Calcium 8.3(L) 8.5 - 10.5 mg/dL [facility] Est Glomerular Filtration Rate 26(L) >=60 mL/min/1. 73 m?? [facility] Comment: This patient's estimated [...] MD CHEMISTRY ORDERABL ES Performing Organization Address [facility] Co de Phone Number [facility] [place] [place] [address] * Vancomycin Level, Random (05/11/2024 2:00 AM EDT) Vancomycin, Random 21.4 mg/L [facility] Comment: This level is for determination of the patient's vancomycin lvsk-lghvz-mfc-curve (AUC) value. Contact the inpatient pharmacy for interpretation. Blood 05/11/2024 2:00 AM EDT 05/11/2024 2:07 AM EDT Mary De La Fuente MD CHEMISTRY ORDERABL ES Performing Organization Address [facility] Co mo Phone Number [facility] [place] [place] [address] * (ABNORMAL) POCT Glucose (05/10/2024 11:40 PM EDT) Glucose, POC 230(H) 65 - 199 mg/dL [facility] Comment: Supplemental ranges: <140 mg/dL before meals <180 mg/dL all other times of the day Blood 05/10/2024 11:4 0 PM EDT 05/10/2024 11:40 PM EDT Treva Diaz MD POINT OF CARE TEST ORDERABLES Performing Organization Address [facility] Co de Phone Number [facility] [place] [place] [address] * POCT Glucose (05/10/2024 4:09 PM EDT) Glucose, POC 189 65 - 199 mg/dL [facility] Comment: Supplemental ranges: <140 mg/dL before meals <180 mg/dL all other times of the day Blood 05/10/2024 4:09 PM EDT 05/10/2024 4:09 PM EDT Treva Diaz MD POINT OF CARE TEST ORDERABLES [facility] [place] [place] [address] * POCT Glucose (05/10/2024 12:11 PM EDT) Glucose, POC 185 65 - 199 mg/dL [facility] Comment: Supplemental ranges: <140 mg/dL before meals <180 mg/dL all other times of the day Blood 05/10/2024 12:1 1 PM EDT 05/10/2024 12:11 PM EDT Mary De La Fuente MD POINT OF CARE TEST ORDERABLES Performing Organization Address [facility] Co de Phone Number [facility] [place] [place] [address] * Vancomycin Level, Random (05/10/2024 12:00 PM EDT) Vancomycin, Random 15.5 mg/L [facility] Comment: This level is for determination of the patient's vancomycin mier-cxtbh-mzn-curve (AUC) value. Contact the inpatient pharmacy for interpretation. Blood 05/10/2024 12:0 0 PM EDT 05/10/2024 12:21 PM EDT Tho Dickson MD CHEMISTRY ORDERABLES Performing Organization Address City/[facility]/ZIP Co de Phone Number [facility] [place] [address] * POCT Glucose (05/10/2024 8:09 AM EDT) Glucose, POC 195 65 - 199 mg/dL [facility] Comment: Supplemental ranges: <140 mg/dL before meals <180 mg/dL all other times of the day Blood 05/10/2024 8:09 AM EDT 05/10/2024 8:09 AM EDT Mary De La Fuente MD POINT OF CARE TEST ORDERABLES [facility] [place] [address] * CK (05/10/2024 6:55 AM EDT) [facility] Signature Creatine Kinase 58 0 - 200 unit/L [facility] Blood Venous Draw / Unknown 05/10/2024 6:55 AM EDT 05/10/2024 7:41 AM EDT Narrative Resulting Agency Comment Spec In Lab Emmanuel Corey DO CHEMISTRY ORDERABLES Performing Organization Address City/[facility]/ZIP Co de Phone Number [facility] [place] [place] [address] * (ABNORMAL) Phosphorus (05/10/2024 6:55 AM EDT) Phosphorus 5.1(H) 2.5 - 4.5 mg/dL [facility] Blood 05/10/2024 6:55 AM EDT 05/10/2024 6:59 AM EDT Narrative Resulting Agency Comment Spec In Lab Tho Dickson MD CHEMISTRY ORDERABLES Performing Organization Address City/[facility]/ZIP Co de Phone Number [facility] [place] [place] [address] * (ABNORMAL) Basic Metabolic Panel (non-fasting) (05/10/2024 6:55 AM EDT) Glucose 193 65 - 199 mg/dL [facility] Comment:Diabetes: >=200 mg/d L plus symptoms Blood Urea Nitrogen 69(H) 10 - 20 mg/dL [facility] Creatinine 3.75(H) 0.80 - 1.50 mg/dL [facility] Sodium 128(L) 135 - 145 mmol/L [facility] Potassium 5.0 3.5 - 5.0 mmol/L [facility] Comment: Please note: ??Patients with WBC >100,000 may have falsely elevated Potassium levels. ??For accurate Potassium quantification in these patients send serum separator tube (gold top) for subsequent determinations. ??Contact the Clinical Chemistry Laboratory if there are any questions. Chloride 93(L) 98 - 107 mmol/L [facility] Carbon Dioxide 23 22 - 31 mmol/L [facility] Anion Gap 12 5 - 15 mmol/L [facility] Calcium 8.6 8.5 - 10.5 mg/dL [facility] Est Glomerular Filtration Rate 17(L) >=60 mL/min/1. 73 m?? [facility] Comment: This patient's estimated [...] In Lab Tho Dickson MD CHEMISTRY ORDERABLES [facility] [place] [place] [address] * Lactate, whole blood, send to lab ([facility] (05/10/2024 6:55 AM EDT) Lactate WB 1.7 0.5 - 2.2 mmol/L [facility] Blood 05/10/2024 6:55 AM EDT 05/10/2024 7:00 AM EDT Narrative Resulting Agency Comment Spec In Lab Tho Dickson MD CHEMISTRY ORDERABLES [facility] [place] [place] [address] * MRI Foot wwo Contrast Right (05/10/2024 5:51 AM EDT) WORKSTATION ID [id number] RAD Anatomical Region Laterality Modality Foot Right [...] who have questions please contact the health healthcare facility administrator that requested your imaging first. ? Narrative [...] patients who have questions please contactthe health healthcare facility administrator that requested your imaging first. Tho Dickson MD [facility] MRI ORDERABLES * Creatinine, urine, random (05/10/2024 4:15 AM EDT) Creatinine, Urine 106 mg/dL [facility] Urine 05/10/2024 4:15 AM EDT 05/10/2024 4:23 AM EDT Narrative Resulting Agency Comment Spec In Lab Tho Dickson MD URINE ORDERABLES [facility] [place] [address] * Sodium, urine, random (05/10/2024 4:15 AM EDT) Sodium, Urine <20 mmol/L [facility] Urine 05/10/2024 4:15 AM EDT 05/10/2024 4:23 AM EDT Narrative Resulting Agency Comment Spec In Lab Tho Dickson MD URINE ORDERABLES Performing Organization Address [facility] Co de Phone Number [facility] [place] [address] * Urea nitrogen, urine, random (05/10/2024 4:15 AM EDT) Urea Nitrogen, Urine 580 mg/dL [facility] Urine 05/10/2024 4:15 AM EDT 05/10/2024 4:23 AM EDT Narrative Resulting Agency Comment Spec In Lab Tho Dickson MD URINE ORDERABLES Performing Organization Address [facility] Co de Phone Number [facility] [place] [address] * (ABNORMAL) Skin/Superficial Wound Culture Toe (05/10/2024 2:56 AM EDT) Skin/Superfic ial Wound Culture Rare mixed bacterial morphotypes suggestive of normal cutaneous armani including Rare Gram Negative Rods (A) [facility] Gram Stain Many Neutrophils seen Few Gram Positive Cocci seen (A) [facility] Organism Gram Negative Rods(A) [facility] Organism Gram Positive Cocci(A) [facility] Superficial Wound TOE STRUCTURE / Unknown 05/10/2024 2:56 AM EDT 05/10/2024 5:18 AM EDT Comment:Right toe wound Narrative Resulting Agency Comment Spec In Lab Tho Dickson MD MICROBIOLOGY - GENER AL ORDERABLES Performing Organization Address [facility]/ZIP Co de Phone Number [facility] [place] [address] * (ABNORMAL) Urinalysis without microscopic (05/10/2024 2:42 AM EDT) Glucose, Urine Dipstick Negative Negative mg/dL [facility] Protein, Urine Dipstick 30(A) Negative mg/dL [facility] Bilirubin, Urine Dipstick Negative Negative mg/dL [facility] Comment: Clinical correlation required for positive Urine Bilirubin results as false positive may occur with some drugs and drug related products. If a false positive is suspected a serum total bilirubin should be considered if clinically indicated. Urobilinogen, Urine Dipstick Normal Normal mg/dL [facility] pH, Urn (dipstick) 5.5 5.0 - 8.0 [facility] Blood, Urine Dipstick Large(A) Negative mg/dL [facility] Ketone, Urine Dipstick Negative Negative mg/dL [facility] Nitrite, Urine Dipstick Negative Negative [facility] Leukocytes, Urine Dipstick Small(A) Negative [facility] Appearance, Urine Dipstick Cloudy(A) Clear [facility] Specific [place] Urine Automated 1.017 1.005 - 1.030 [facility] Color, Urine Dipstick [place](A) Yellow [facility] Urine 05/10/2024 2:42 AM EDT 05/10/2024 2:57 AM EDT Narrative Resulting Agency Comment Spec In Lab Tho Dickson MD URINE ORDERABLES Performing Organization Address City/State/[facility] Co de Phone Number [facility] [place] [place] [address] * XR Chest One View (05/10/2024 2:37 AM EDT) WORKSTATION ID [id number] RAD Anatomical Region Laterality Modality Chest N/A Digital Radiogra phy Impressions 05/10/2024 3:27 AM EDT Bibasilar atelectasis. Thank you for letting us participate in the care of this patient. ??If you are a health care provider and have any questions regarding this report, please contact the number below. ??For patients who have questions please contact the health healthcare facility administrator that requested your imaging first. ? Electronically signed by: Yenni Ca MD, [facility] ([phone]), at 05/10/2024 3:27 AM Narrative 05/10/2024 3:27 AM EDT EXAMINATION: XR [...] patients who have questions please contactthe health healthcare facility administrator that requested your imaging first. Tho Dickson MD IMG DX ORDERABLES * Blood culture (05/10/2024 2:32 AM EDT) Blood Culture No growth at 5 days. [facility] Blood STRUCTURE OF RIGHT HAND / Unknown 05/10/2024 2:32 AM EDT 05/10/2024 4:17 AM EDT Narrative Resulting Agency Comment Spec In Lab Tho Dickson MD MICROBIOLOGY - BLOOD ORDERABLES Performing Organization Address [facility]/ZIP Co de Phone Number [facility] [place] [address] * (ABNORMAL) POCT Glucose (05/10/2024 2:30 AM EDT) Pathologist [facility] Glucose, POC 201(H) 65 - 199 mg/dL [facility] Comment: Supplemental ranges: <140 mg/dL before meals <180 mg/dL all other times of the day Blood 05/10/2024 2:30 AM EDT 05/10/2024 2:30 AM EDT Tho Dickson MD POINT OF CARE TEST O RDERABLES Performing Organization Address [facility] Co de Phone Number [facility] [place] [address] * Vancomycin Level, Random (05/10/2024 2:20 AM EDT) Pathologist [facility] Vancomycin, Random 26.9 mg/L [facility] Comment: This level is for determination of the patient's vancomycin agwk-onmqg-bom-curve (AUC) value. Contact the inpatient pharmacy for interpretation. Blood Venous Draw / Unknown 05/10/2024 2:20 AM EDT 05/10/2024 2:38 AM EDT Tho Dickson MD CHEMISTRY ORDERABLES Performing Organization Address City/[facility]/ZIP Co de Phone Number [facility] [place] [address] * Scan, Peripheral Blood (05/10/2024 2:20 AM EDT) Plat estimate Normal [facility] RBC Morphology Abnormal [facility] Ovalocytes 1-5 /HPF [facility] [place] Cells 1-5 /HPF [facility] Plat, Giant Less than 1 /HPF [facility] Blood 05/10/2024 2:20 AM EDT 05/10/2024 2:36 AM EDT Narrative Resulting Agency Comment Spec In Lab Anita Camacho MD HEMATOLOGY ORDERABLE S [facility] [place] [address] * Type and Screen Validity (05/10/2024 2:20 AM EDT) T&S only valid at [facility] Comment:This Type and Screen result is only valid at the [facility] Blood 05/10/2024 2:20 AM EDT 05/10/2024 2:49 AM EDT Narrative Resulting Agency Comment Spec In Lab Anita Camacho MD BLOOD BANK LAB ORDER ANGELIQUE [facility] [place] [address] * ABOR[facility] Recheck Status (05/10/2024 2:20 AM EDT) [facility] Recheck Order Order Placed [facility] ABORH Type Recheck Completed [facility] Blood 05/10/2024 2:20 AM EDT 05/10/2024 2:49 AM EDT Narrative Resulting Agency Comment Spec In Lab Anita Camacho MD BLOOD BANK LAB ORDER ANGELIQUE [facility] [place] [address] * (ABNORMAL) Differential, Automated (05/10/2024 2:20 AM EDT) Neutrophil % 89.2 % [facility] Neutrophil Absolute 25.39(H) 1.70 - 6.10 x10(3)/mc L [facility] Lymph % 1.2 % [facility] Lymphocytes Abs 0.4(L) 0.9 - 3.2 x10(3)/mc L [facility] Monocyte % 2.9 % [facility] Monocyte Abs 0.8 0.3 - 0.9 x10(3)/mc L [facility] Eos % 0.0 % [facility] Eosinophils Abs 0.0 0.0 - 0.4 x10(3)/[facility] Basophil % 0.2 % [facility] Baso Absolute 0.1 0.0 - 0.1 x10(3)/mc L [facility] Immature Gran % 6.50 % [facility] Comment: Immature granulocytes(IG's)percentage and absolute count will include metamyelocytes, myelocytes, and promyelocytes. Blood smears from CBCs yielding IG's will be scanned manually for concordance. If this scan disagrees with the automated IG or if promyelocytes are noted, a manual differential will be performed. Immature Gran Absolute 1.85(H) 0.00 - 0.04 x10(3)/mc L [facility] Blood 05/10/2024 2:20 AM EDT 05/10/2024 2:36 AM EDT Narrative Resulting Agency Comment Spec In Lab Anita Camacho MD HEMATOLOGY ORDERABLE S Performing Organization Address [facility]/ZIP Co de Phone Number [facility] [place] [address] * (ABNORMAL) Hemogram (05/10/2024 2:20 AM EDT) White Blood Cell 28.5(H) 4.0 - 9.5 x10(3)/ L [facility] Red Blood Cell 3.83(L) 4.58 - 5.54 x10(6)/mc L [facility] Hemoglobin 11.4(L) 13.7 - 16.5 g/dL [facility] Hematocrit 34.5(L) 40.5 - 48.5 % [facility] Mean Cell Volume 90.1 82.9 - 93.1 fL [facility] Mean Cell Hemoglobin 29.8 27.5 - 32.1 pg [facility] Mean Cell Hemoglobin Concentration 33.0 32.0 - 35.7 g/dL [facility] Platelet 135(L) 145 - 357 x10(3)/[facility] RDW Standard Deviation 51.9(H) 36.0 - 45.0 [facility] RDW coefficient of variation 15.6(H) 11.4 - 13.8 % [facility] Mean Platelet Volume 12.8 7.6 - 12.9 [facility] NRBC% auto 0.0 % [facility] NRBC Absolute 0.000 0.000 - 0.000 x10(3)/[facility] Blood 05/10/2024 2:20 AM EDT 05/10/2024 2:36 AM EDT Narrative Resulting Agency Comment Spec In Lab Anita Caamcho MD HEMATOLOGY ORDERABLE S [facility] [place] [address] * (ABNORMAL) Hemoglobin A1c (05/10/2024 2:20 AM EDT) Hemoglobin A1c 5.9(H) 4.3 - 5.6 % [facility] Comment: Reference Range: 4.3 [...] Mellitus, Diabetes Care 2013; 36: Suppl. 1, U66-64 Estimated Average Glucose See note mg/dL [facility] Comment: Estimated Average Glucose not appropriate for patients over 70 years of age. Blood 05/10/2024 2:20 AM EDT 05/10/2024 2:36 AM EDT Narrative Resulting Agency Comment Spec In Lab Tho Dickson MD CHEMISTRY ORDERABLES Performing Organization Address [facility] Co de Phone Number [facility] [place] [address] * Hepatic Function Panel (05/10/2024 2:20 AM EDT) Protein, Total 7.6 6.1 - 8.0 g/dL [facility] Albumin 3.3 3.2 - 5.2 g/dL [facility] Aspartate Aminotransferase 21 0 - 39 unit/L [facility] Alanine Aminotransferase 19 0 - 55 unit/L [facility] Alkaline Phosphatase 42 40 - 130 unit/L [facility] Bilirubin, Total 0.5 0.2 - 1.3 mg/dL [facility] Bilirubin, Direct 0.2 0.0 - 0.3 mg/dL [facility] Blood 05/10/2024 2:20 AM EDT 05/10/2024 2:36 AM EDT Narrative Resulting Agency Comment Spec In Lab Tho Dickson MD CHEMISTRY ORDERABLES Performing Organization Address [facility] Co de Phone Number [facility] [place] [address] * (ABNORMAL) Phosphorus (05/10/2024 2:20 AM EDT) Phosphorus 4.6(H) 2.5 - 4.5 mg/dL [facility] Blood 05/10/2024 2:20 AM EDT 05/10/2024 2:36 AM EDT Narrative Resulting Agency Comment Spec In Lab Tho Dickson MD CHEMISTRY ORDERABLES Performing Organization Address [facility]/ZIP Co de Phone Number [facility] [place] [address] * Magnesium (05/10/2024 2:20 AM EDT) Pathologist [facility] Magnesium 0.85 0.69 - 1.07 mmol/L [facility] Blood 05/10/2024 2:20 AM EDT 05/10/2024 2:36 AM EDT Narrative Resulting Agency Comment Spec In Lab Tho Dickson MD CHEMISTRY ORDERABLES Performing Organization Address [facility] Co de Phone Number [facility] [place] [address] * (ABNORMAL) Basic Metabolic Panel (non-fasting) (05/10/2024 2:20 AM EDT) [facility] Glucose 196 65 - 199 mg/dL [facility] Comment:Diabetes: >=200 mg/d L plus symptoms Blood Urea Nitrogen 71(H) 10 - 20 mg/dL [facility] Creatinine 3.94(H) 0.80 - 1.50 mg/dL [facility] Sodium 129(L) 135 - 145 mmol/L [facility] Potassium 5.3(H) 3.5 - 5.0 mmol/L [facility] Comment: Please note: ??Patients with WBC >100,000 may have falsely elevated Potassium levels. ??For accurate Potassium quantification in these patients send serum separator tube (gold top) for subsequent determinations. ??Contact the Clinical Chemistry Laboratory if there are any questions. Chloride 93(L) 98 - 107 mmol/L [facility] Carbon Dioxide 24 22 - 31 mmol/L [facility] Anion Gap 12 5 - 15 mmol/L [facility] Calcium 8.5 8.5 - 10.5 mg/dL [facility] Est Glomerular Filtration Rate 16(L) >=60 mL/min/1. 73 m?? [facility] Comment: This patient's estimated [...] In Lab Tho Dickson MD CHEMISTRY ORDERABLES [facility] [place] [address] * (ABNORMAL) Prothrombin Time (05/10/2024 2:20 AM EDT) Prothrombin Time 27.9(H) 9.4 - 12.5 sec [facility] International Normalization Ratio 2.5 [facility] Comment: An INR <2.0 [...] Lab Tho Dickson MD HEMATOLOGY ORDERABLE S [facility] [address] * Type and screen ([facility]) (05/10/2024 2:20 AM EDT) [facility] Type O POSITIVE [facility] Patient BB History Not Found [facility] Expires at [id number] on: 05-13-2024 [facility] Ab Screen Interp Negative [facility] Blood 05/10/2024 2:20 AM EDT 05/10/2024 2:20 AM EDT Narrative [facility] - 05/10/2024 2:20 AM EDT This Type and Screen result is only valid at the [facility] Resulting Agency Comment Spec In Lab Tho Dickson MD BLOOD BANK LAB ORDER ANGELIQUE Performing Organization Address City/[facility]/ZIP Co de Phone Number [facility] [place] [address] * (ABNORMAL) Lactate, whole blood, send to lab ([facility]) (05/10/2024 2:20 AM EDT) Lactate WB 2.3(H) 0.5 - 2.2 mmol/L [facility] Blood 05/10/2024 2:20 AM EDT 05/10/2024 2:36 AM EDT Narrative Resulting Agency Comment Spec In Lab Tho Dickson MD CHEMISTRY ORDERABLES Performing Organization Address City/[facility]/ZIP Co de Phone Number [facility] [place] [address] documented in this encounter Visit Diagnoses Diagnosis [...] 1 capsule, Oral, DAILY, First dose on [facility] 05/18/24 at 0900, Until Discontinued, Routine Given [...] over 4 Hours, Warning Vesicant/Irritant Medication Per market researcher labeling, do not administer or Y-site with [...] over 4 Hours, Warning Vesicant/Irritant Medication Per market researcher labeling, do not administer or Y-site with [...] - Reason: Transfer to a Procedural area)175 ([facility] Unhold - Provider: Admin Adt)2109 (Given [...] HOURS, First dose (after last modification) on [facility] 05/18/24 at 1430, Until Discontinued, Routine 0258 [...] HOURS, First dose (after last modification) on [facility] 05/22/24 at 1230, Until Discontinued, Routine [...] documented as of this encounter Care Teams Automatic Steel Tie Adjuster Relationship 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
--- OUTSIDE RECORDS SUMMARY | 2024-06-03 20:38 | XMS_ITS | Encounter Summary ---
[place] [address] Care Team Providers Care Senior Counsel Name Role Phone None Primary Care Provider Unavailabl e Reason for Visit * Auth/Cert (Routine) Specialty Diagnoses / Procedures Referred By Contac t Referred To Contact Diagnoses Septic shock septiic shock Procedures ER Tho Aquino MD [facility] [place] [address] [facility] Referral ID Status Reason Start Date Expiration Date Visits Re quested Visits Authorized [id number] 1 1 Encounter Details Date Type Department Care Team (Late st Contact Info) Description 05/14/2024 10:37 AM EDT Anesthesia Event [place] [id number] Gertrudis Kimball MD [facility] DR [place] [address] Kimberlee Fontenot MD [facility] [place] [address] Anesthesia Record Procedure Summary Procedure Name Responsible [...] Removal Time: 1201 05/14/24 1051 by Fátima Gacria CRNA 05/14/24 1201 by Fátima Garcia CRNA [...] Procedure Summary Date: 05/14/24 Room / Location: [facility] OR [address] [place] [address] MAIN OR Anesthesia Start: 1037 Anesthesia Stop: 1219 Procedure: AMPUTATION, TRANSMETATARSAL TOE, ONE TOE (WRVU 6.64) (Right: Foot) Diagnosis: (right second toe osteomyelitis) Surgeons: Elkin Garcia MD Responsible Provider: Gertrudis Kimball MD Anesthesia Type: general ASA Status: 3 All Anesthesia Providers: Anesthesiologist: Gertrudis Kimball MD BREAD OVEN OPERATOR: Fátima Garcia CRNA Vitals Value Taken Time BP 142/72 05/14/24 1415 Temp 36.4 ??C (97.5 ??F) 05/14/24 1415 Pulse 96 05/14/24 1427 Resp 21 05/14/24 1430 SpO2 96 % 05/14/24 1442 Pain Level 3 05/14/24 1430 Vitals shown include unfiled device data. Patient Location: PACU/[facility] Level of Consciousness: Conscious but Sleepy Pain [...] risks discussed with patient. Plan discussed with BREAD OVEN OPERATOR. Anesthesia Screening documented in this encounter Plan of Treatment Upcoming Encounters Date Type Department Care Team (Late st Contact Info) Description 06/10/2024 10:30 AM EDT Office [place] [phone] Elkin Garcia MD [facility] DR [place] [address] documented as of this encounter Visit Diagnoses [...] mg documented in this encounter Care Teams Senior Counsel Relationship 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
--- OUTSIDE RECORDS SUMMARY | 2024-06-03 20:38 | XMS_ITS | Encounter Summary ---
[place] [address] Care Team Providers Care Woods Rider Name Role Phone None Primary Care Provider Unavailabl e Reason for Visit * Auth/Cert (Routine) Specialty Diagnoses / Procedures Referred By Contac t Referred To Contact Diagnoses Septic shock septiic shock Procedures ER Tho Aquino MD [facility] [place] [address] [facility] Referral ID Status Reason Start Date Expiration Date Visits Re quested Visits Authorized [id number] 1 1 Encounter Details Date Type Department Care Team (Late st Contact Info) Description 05/22/2024 1:00 PM EDT - 05/22/2024 1:30 PM EDT Surgery [place] [address] Jonn Mena MD [facility] [place] [address] EGD, UPPER GI ENDOSCOPY (WRVU 2.09) Social [...] Jossy Shanks Patient Age: 69 y.o. Language: Japanese Race: White Ethnicity: Not nor Admit date: [...] please contact your inpatient physician through the [facility] Candy Waffle Assembler . Issues afterhours and on weekends will [...] home oxygen, HFpEF, HTN who presented to [facility] for rt LE cellulitis, transferred to [facility] for septic shock. At end of March he dropped cylinder block on rt foot, bleeding and painful. Kept bandaged and sock on it, same sock on it for the last week, reports sock became fused to wound. Denies paresthesia. Wasable to walk w/out difficulty. In last several days erythema and edema spread upper Rt LE to knee. Fevers & chills for last 24hrs. Hamilton lightheaded, weak, & couldn't get out of [...] prior to OSH departure. On arrival to [facility]: HR 96, o2 sat mid 90s on [...] care, the same day as transfer to [facility]. On the general medicine floor, he was [...] border dressing. (Melgisorb Ag 6x6 PS # [id number]) (Melgisorb Ag 4x4 PS # [id number]) Sacrum/ischium: open to air, utilize Z-guard if [...] 05/10/2024 2:37 AM) Result Value WORKSTATION ID [id number] Impression Bibasilar atelectasis. Thank you for letting us participate in the care of this patient. If you are a health care provider and have any questions regarding this report, please contact the number below. For patients who have questions please contact the health gericare aide that requested your imaging first. Foot wwo Contrast Right (Exam End: 05/10/2024 5:51 AM) Result Value WORKSTATION ID [id number] Impression 1. Soft tissue irregularity of the [...] who have questions please contact the health gericare aide that requested your imaging first. Retroperitoneal Complete (Exam End: 05/20/2024 10:36 AM) Result Value WORKSTATION ID [id number] Impression 1. Very limited exam secondary to [...] who have questions, please contact the health gericare aide that requested your imaging first. Teofilo Ruiz, Staff Physician Electronically Signed Final Report 05/20/2024 11:36 am Pending Studies and Lab Data: Discharge Conditions/Prognosis: s/p Left 2nd toe amputation, recovering, requiring rehab. Back to baseline. Discharge to: [facility] Updated Allergies/ADRs: No Known Allergies [...] Time Provider Department Center 06/03/2024 2:00 PM uL Mcfarland APRN [facility] ID 5C [facility] 06/05/2024 4:00 PM Elkin Garcia MD [facility] ORTH 3C [facility] Your Discharge Medication List Your Medications New [...] as much as possible. Call your doctor ([phone]) if you develop: Fever greater than 100.5 Severe nausea or vomiting Increasing pain that is not controlled by pain medications Increasing redness, swelling, or drainage from incisions Change in sensation FOLLOW-UP APPOINTMENTS: 1. You will have follow-up appointments at [facility] as indicated below in Future Appointment and Orders. 2. You will need to have x-rays prior to your follow-up appointment listed below. Please come to Radiology, desk 3T, 1 hour BEFORE that appointment for these x-rays. Future Appointments Date Time Provider Department Center 06/03/2024 2:00 PM Lu Mcfarland APRN [facility] ID 5C [facility] 06/05/2024 4:00 PM Elkin Garcia MD [facility] ORTH 3C [facility] If you have questions or concerns: Sunday [...] the day after the procedure, use an nwrf-iaf-frmccjq spray to numb your throat. Sucking on [...] occurs, please contact your Doctor. Please call [phone] before 8pm Mon-Fri with problems, questions or concerns. If you call after 8pm or on weekends, call the Hospital at [phone] and ask to speak to the Public Works Director informatics application analyst and the press operator carbon blocks will contact that person for you. When should you call for help? Call [phone] anytime you think you may need emergency [...] any problems. Where can you learn more? [facility] View your After Visit Summary and more online at [email or web address] If you would like to provide feedback about your hospital experience, please call the Office of Patient and Family Relations at . If you have received this After Visit Summary in error, please immediately return it in person to the department, or notify the [facility] Privacy Office by calling toll free at between the hours of 8AM and 5PM to arrange for our retrieval of the documents at no cost to you. Content Version: 12.2 ?? 9192-8774 [employer]. Care instructions adapted under license by [facility]. If you have questions about a medical condition or this instruction, always ask your healthcare professional. [employer] disclaims any warranty or liability for your [...] is during regular working hours, please call [phone]. If it is after 5 pm or a weekend or holiday, call [phone] and ask for the Automatic Grinding Machine Operator informatics application analyst for Interventional Radiology. You have received medication [...] PM Lu Mcfarland APRN Infectious Disease at [facility] Arrive at: Supercalender Operator Helper Area 5C [phone] 06/05/2024 4:00 PM Elkin Garcia MD Orthopaedics at [facility] Arrive at: Supercalender Operator Helper Area 3C [phone] Future Orders Complete By Expires OPAT: Order / Recommendation for Post Discharge IV Antibiotic Management [AEV212 CPT(R)] As directed Process Instructions: If no progress note charted, please enter Clinical details in comments. Scheduling Instructions: Comments: - If this order was signed greater than 72 hours prior to [facility] discharge, please call to confirm the accuracy of this order. Please Fax all results to: [facility] Program Infectious Disease Section [facility], [place] [address] FAX: - After hours, please contact the Infectious Disease Physician informatics application analyst at . - Line care instructions - see flush/heparin orders. Facilities may follow organizational policies/practices regarding heparin. - senior care for medication administration/concrete bucket hooker and catheter care/maintenance authorized. HD Line care [...] draw labs every Sunday fax results to [facility] at [phone]. Please draw labs off PICC line. Please see [facility] order for lab draw details. Please RN visit for IV ABX teaching and ongoing assessment. Group Home for Medication Administration/Hookup and catheter care/maintenance: [...] 05/20/2024 11:36 am) PATIENT INFO: ID #: [id number].: [id number] (69 yrs)(M) Name: JOSSY SHANKS Visit Date: 05/20/2024 10:34 am PERFORMED BY: Attending: Teofilo Ruiz MD Resident: Trinidad Light MD Performed By: Lulu Shin RDMS Referred By: SABA SPEARS Location: [place] SERVICE(S) PROVIDED: URETRO - Retroperitoneal Complete - [id number] INDICATIONS: CKD, increase BUN TECHNIQUE/SCAN QUALITY: Scan [...] patients whohave questions, please contact the health gericare aide that requested your imaging first. Teofilo Ruiz, Staff Physician Electronically Signed Final Report 05/20/2024 11:36 am My clinical question: Patient to establish for CKD management Do not type below here ERFRL_NEPH_CKD Questions: My question or request is: See comment Provider Contact Information: None None None Discharge References/Attachments Low Phosphorus Foods: General Info (Japanese) Low Potassium Foods: General Info (Japanese) documented in this encounter Discharge Instructions * [...] the day after the procedure, use an ameh-roa-osatita spray to numb your throat. Sucking on [...] occurs, please contact your Doctor. Please call [phone] before 8pm Mon-Fri with problems, questions or concerns. If you call after 8pm or on weekends, call the Hospital at [phone] and ask to speak to the Public Works Director informatics application analyst and the press operator carbon blocks will contact that person for you. When [...] any problems. Where can you learn more? [facility] View your After Visit Summary and more online at [email or web address] If you would like to provide feedback about your hospital experience, please call the Office of Patient and Family Relations at . If you have received this After Visit Summary in error, please immediately return it in person to the department, or notify the [facility] Privacy Office by calling toll free at between the hours of 8AM and 5PM to arrange for our retrieval of the documents at no cost to you. Content Version: 12.2 ?? [id number] [employer]. Care instructions adapted under license by [facility]. If you have questions about a medical condition or this instruction, always ask your healthcare professional. [employer] disclaims any warranty or liability for your [...] is during regular working hours, please call [phone]. If it is after 5 pm or a weekend or holiday, call [phone] and ask for the Automatic Grinding Machine Operator informatics application analyst for Interventional Radiology. You have received medication [...] Center 06/03/2024 2:00 PM Lu Mcfarland APRN [facility] ID 5C [facility] 06/05/2024 4:00 PM Elkin Garcia MD [facility] ORTH 3C [facility] Your Discharge Medication List Your Medications New [...] as much as possible. Call your doctor ([phone]) if you develop: Fever greater than 100.5 Severe nausea or vomiting Increasing pain that is not controlled by pain medications Increasing redness, swelling, or drainage from incisions Change in sensation FOLLOW-UP APPOINTMENTS: 1. You will have follow-up appointments at [facility] as indicated below in Future Appointment and Orders. 2. You will need to have x-rays prior to your follow-up appointment listed below. Please come to Radiology, desk 3T, 1 hour BEFORE that appointment for these x-rays. Future Appointments Date Time Provider Department Center 06/03/2024 2:00 PM Lu Mcfarland APRN [facility] ID 5C [facility] 06/05/2024 4:00 PM Elkin Garcia MD [facility] ORTH 3C [facility] If you have questions or concerns: Sunday through Sunday, 8 AM - 5 PM, please call Dr. Saba Spears MD's office at . If it is after 5 PM, the weekend, or holidays, please call and ask to speak with theOrthopedic resident on-call. * Attachments The following attachments cannot be sent through Care Everywhere. * Low Phosphorus Foods: General Info (Japanese) * Low Potassium Foods: General Info (Japanese) documented in this encounter Medications at Time [...] spent >30 minutes (Day of Discharge Code 77876) involved in the final examination of the patient, discussion of the hospital stay, instructions for continuing care to all relevant caregivers, and preparation of discharge records, prescriptions and referral forms. Plans Discharge to [facility] rehab Follow-up scheduled with ID, ortho, provider at [facility] Please see the Discharge Summary for complete details of any medication changes and additional plans. * Yg Jaffe - 05/23/2024 2:44 PM EDT Office of Care Management(OCM)/Network Developer(RS) Patient Name: Jossy Shanks : 1955 Patient has been offered a SNF bed at [phone]. [facility] arranged for a BLS transport at 1530. Ambulance will need: Medicare ambulance form completed and signed (MD or Railroad Surveyor) Copy of patient demographics [place] or [place] Out of Hospital DNR/DNI order, if active No MD to MD report necessary. Please call Nursing Report to , ask for kinder teacher. Info to accompany patient: Narcotic Prescriptions Copies of Medication Administration Records and IV sheets for past two weeks. Plan: Network Developer will be available to the patient and Railroad Surveyor for further assistance. Patient to discharge to: [facility] [address] Yg Jaffe Network Developer * Shirley Samuel RN - 05/23/2024 12:05 PM EDT Physician Certification Statement for Non-Emergency Ambulance Services Section I - General Information Guanakojaren Allyssa Shanks 1955 Medicare Number: n/a Transport Date: 05/23/2024 (PCS is valid for round trips on this date and for all repetitive trips in the 60-day range as noted below.) Origin: [facility] Destination: [facility] Is the patient's stay [...] van (i.e. seated during transport, without medical transport specialist or monitoring?): No 4) In addition to [...] the Centers of Medicare and Medicaid Services ([facility]) to support the determination of [...] IMAGING: Reports and images personally reviewed in [facility]. Images independently interpreted. IR Tunneled Central [...] who have questions, please contact the health gericare aide that requested your imaging first. Teofilo Ruiz, [...] who have questions please contact the health gericare aide that requested your imaging first. Chest One View Final Result Bibasilar atelectasis. Thank you for letting us participate in the care of this patient. If you are a health care provider and have any questions regarding this report, please contact the number below. For patients who have questions please contact the health gericare aide that requested your imaging first. SCOPY: Reports [...] with them as documented. Tl Steele MD [facility] Gastroenterology * Irene Bravo RN - 05/22/2024 [...] Zhao RN - 05/22/2024 12:47 PM EDT Office Machine Technician spoke with JACKIE Nuñez from Endo regarding [...] Galvan MD - 05/22/2024 6:57 AM EDT [facility] Medicine - Red Team Inpatient Progress [...] with PT - hoping to go to [facility] today Meds: pantoprazole 40 mg Intravenous BID furosemide 40 mg Oral QAM epoetin leah-epbx 10,000 Units Subcutaneous Daily insulin glargine (Lantus;Semglee) (100 unit/mL) subcutaneous injection 14 Units Subcutaneous Nightly lactobacillius capsule 1 capsule Oral Daily ipratropium-albuteroL 3 mL Nebulization Q4H insulin lispro 1-6 Units Subcutaneous Q4H [facility] cefTRIAXone 2 g Intravenous Q24H insulin lispro [...] shoe, c/w pt - Bed ready at [facility] #IDDM Home regiment: 1.2mg liraglutide [...] upcoming EGD, and availability of bed at [facility]. -ordered T&S in case continues to [...] Medicine Hospital Medicine Red Team - Pager [phone] Associated attestation - Saba Spears MD - [...] will transfuse and monitor response. Dispo to [facility] for rehab pending Hgb stability and EGD. I have examined the patient myself and personally reviewed all studies. In addition, I certify thatI am a D-H credentialed attending provider with admitting privileges and that the patient meets or has met medical necessity to require an inpatient IPI level of care meeting a minimum of two midnights or is on the [facility] inpatient only procedure list (status C) due to: OM requiring IV abx * Lazaro Aaron, MUFF WINDER - 05/21/2024 4:05 PM EDT Physical Therapy [...] discharge to swing bed rehab facility vs intermediate facility once medically ready for hospital discharge. Pt will continue to benefit from skilled physical therapy while in the hospital in order to maximize independence and safety with functional mobility and achieve therapeutic goals. Discharge Recommendations: Based on current findings- swing bed rehabilitation facility, intermediate facility Discharge recommendation is based on the [...] with stable vital signs. Total Time: 34 (7600-8967) minutes. TAx2 Lazaro Aaron PTA Pager: [phone] Physical Therapy Inpatient Rehabilitation Department * Penny [...] decreased insight into deficits Vision: corrective lenses pig lead melter helper Endurance: decreased activity tolerance Vitals: Stable on [...] with activities of daily living. Discharge Recommendation: intermediate facility, swing bed rehabilitation facility Equipment Recommendations: [...] 2-3 times/wk Total Minutes, Occupational Therapy: 40 ([facility] x3 ([phone])) Pager: [phone] Penny Rodriguez OT Occupational Therapy Rehabilitation Department [...] of : 1955 AGE: 69 y.o. Address: [address] [place] [address] (home) Mobile: Telephone Information: Referring Provider: Anna [...] Galvan MD - 05/21/2024 6:30 AM EDT [facility] Medicine - Red Team Inpatient Progress [...] Medicine Hospital Medicine Red Team - Pager [phone] Associated attestation - Saba Spears MD - [...] mid 7s. Appreciate GI consult. Dispo to [facility] pending Hgb and EGD. I have examined the patient myself and personally reviewed all studies. In addition, I certify thatI am a D-H credentialed attending provider with admitting privileges and that the patient meets or has met medical necessity to require an inpatient IPI level of care meeting a minimum of two midnights or is on the [facility] inpatient only procedure list (status [...] Galvan MD - 05/20/2024 6:20 AM EDT [facility] Medicine - Red Team Inpatient Progress [...] Pip-tazo and vanc c/w CTX Planning for [facility] central line, instead of PICC Has [...] Mihaela Galvan MD 05/20/2024 PGY-3, Internal Medicine [facility] Medicine Red Team - Pager [phone] Associated attestation - Saba Spears MD - [...] discharge to swing bed rehab facility vs intermediate facility once medically ready for hospital discharge. Pt will continue to benefit from skilled physical therapy while in the hospital in order to maximize independence and safety with functional mobility and achieve therapeutic goals. Discharge Recommendations: Based on current findings- swing bed rehabilitation facility, intermediate facility Discharge recommendation is based on the [...] Ho PT, Doctor of Physical Therapy Pager: [phone] Physical Therapy Inpatient Rehabilitation Department * Rebeca [...] decreased insight into deficits Vision: corrective lenses pig lead melter helper Endurance: decreased activity tolerance Vitals: Stable on [...] with activities of daily living. Discharge Recommendation: intermediate facility, swing bed rehabilitation facility Equipment Recommendations: [...] times/wk Total Minutes, Occupational Therapy: 47 Pager: [phone] Rebeca Moeller OT Occupational Therapy Rehabilitation Department * Mihaela Galvan MD - 05/19/2024 6:43 AM EDT [facility] Medicine - Red Team Inpatient Progress [...] Medicine Hospital Medicine Red Team - Pager [phone] Associated attestation - Saba Spears MD - [...] for a hospital day 9 nutrition evaluation. Office Machine Technician met with pt at bedside. Pt saidhe [...] unless consulted in the interim. Julissa Weathers Android Software Engineer * Mihaela Galvan MD - 05/18/2024 7:20 AM EDT [facility] Medicine - Red Team Inpatient Progress [...] Medicine Hospital Medicine Red Team - Pager [phone] Associated attestation - Saba Spears MD - 05/18/2024 8:08 PM EDT Attending Attestation and Certification Please see Mihaela aGlvan MD's note for details of the patient [...] of two midnights or is on the [facility] inpatient only procedure list (status [...] Harrison MD - 05/17/2024 6:28 AM EDT [facility] Medicine - Red Team Inpatient Progress [...] Meds: insulin lispro 1-6 Units Subcutaneous Q4H [facility] insulin glargine (Lantus;Semglee) (100 unit/mL) subcutaneous injection [...] José Harrison MD 05/17/2024 PGY-3, Internal Medicine [facility] Medicine Red Team - Pager [phone] Associated attestation - Saba Spears MD - [...] 6.64) performed by Elkin Garcia MD at [facility] MAIN OR Active Non-Hospital Problems Diagnosis [...] [place] PT, Doctor of Physical Therapy Pager: [phone] Physical Therapy Inpatient Rehabilitation Department * Emmanuel [...] History: Housing: lives in a camper in [facility] Occupation: Former [employer], retired in [...] Component Value - Date/Time MRSA PCR Screen ([facility]/CGP/APD/NLH) [[id number]] Collected: 05/15/24 1615 Lab Status: Final result Specimen: Nasopharyngeal Swab Updated: 05/15/242012 MRSA Result Negative MRSA Interp -- Methicillin-resistant Staphylococcus aureus (MRSA) is NOT DETECTED The MRSA target DNA sequences (mec and SCC) were not detected within the acceptable ranges using the Xpert MRSA NxG on the GeneXpert Dx System ([employer]). This suggests the absence of MRSA in the patient specimen submitted for testing. This test is cleared by the U.S. Food and Drug Administration for clinical use and its performance characteristics have been verified by the [facility] at [facility]. This result does not rule out the presence of any other organisms. Rare false negative results may occur if MRSA is present at low concentrations with much higher concentrations of other organisms including MRSE or S. aureus with an empty SCC cassette. Comment: [VERIFIED DATE]05.15.24 Verified By:Lupe Jensen (Electronic Signature) Tissue Culture, Aerobic & Anaerobic Toe [[id number]] (Abnormal) Collected: 05/14/24 1133 Lab Status: Preliminary result Specimen: Toe Updated: 05/15/24 1212 Tissue culture [[id number]] (Abnormal) Collected: 05/14/24 1133 Lab Status: Preliminary result Specimen: Toe Updated: 05/15/24 121 Tissue Culture No growth to date. Gram Stain -- Few Neutrophils seen Rare Gram Positive Cocci in pairs seen Results called to and read back by Dr. Mihaela Galvan 05/14/24 14:57:00 Organism Gram Positive Cocci in pairs Anaerobic Culture [[id number]] Collected: 05/14/24 1133 Lab Status: Preliminary result Specimen: Toe Updated: 05/15/24 1124 Anaerobic Culture No anaerobic organisms isolated to date Blood culture [[id number]] Collected: 05/10/24 0232 Lab Status: Final result Specimen: Blood from Hand, Right Updated: 05/15/24 0701 Blood Culture No growth at 5 days. Skin/Superficial Wound Culture Toe [[id number]] (Abnormal) Collected: 05/10/24 0256 Lab Status: Final [...] follow. Please page ID Red team (pager [phone]) with questions or concerns. Emmanuel Corey, DO Internal Medicine PGY-2 Pager: [phone] Epic Chat 05/16/2024 Associated attestation - Rodriguez [...] from the original note were not included. [facility] Red Team Inpatient Progress Note ID: [...] Component Value - Date/Time MRSA PCR Screen ([facility]/CGP/APD/NLH) [[id number]] Collected: 05/15/24 1615 Lab Status: Final result Specimen: Nasopharyngeal Swab Updated: 05/15/242012 MRSA Result Negative MRSA Interp -- Methicillin-resistant Staphylococcus aureus (MRSA) is NOT DETECTED The MRSA target DNA sequences (mec and SCC) were not detected within the acceptable ranges using the Xpert MRSA NxG on the GeneXpert Dx System ([employer]). This suggests the absence of MRSA in the patient specimen submitted for testing. This test is cleared by the U.S. Food and Drug Administration for clinical use and its performance characteristics have been verified by the [facility] at [facility]. This result does not rule out the presence of any other organisms. Rare false negative results may occur if MRSA is present at low concentrations with much higher concentrations of other organisms including MRSE or S. aureus with an empty SCC cassette. Comment: [VERIFIED DATE]05.15.24 Verified By:Lupe Jensen (Electronic Signature) Tissue Culture, Aerobic & Anaerobic Toe [[id number]] (Abnormal) Collected: 05/14/24 113 Lab Status: Preliminary result Specimen: Toe Updated: 05/15/24 121 Tissue culture [[id number]] (Abnormal) Collected: 05/14/24 113 Lab Status: Preliminary result Specimen: Toe Updated: 05/15/24 121 Tissue Culture No growth to date. Gram Stain -- Few Neutrophils seen Rare Gram Positive Cocci in pairs seen Results called to and read back by Dr. Mihaela Galvan 05/14/24 14:57:00 Organism Gram Positive Cocci in pairs Anaerobic Culture [[id number]] Collected: 05/14/24 113 Lab Status: Preliminary result Specimen: Toe Updated: 05/15/24 1124 Anaerobic Culture No anaerobic organisms isolated to date Blood culture [[id number]] Collected: 05/10/24 0232 Lab Status: Final result Specimen: Blood from Hand, Right Updated: 05/15/24 0701 Blood Culture No growth at 5 days. Skin/Superficial Wound Culture Toe [[id number]] (Abnormal) Collected: 05/10/24 0256 Lab Status: Final [...] PGY-1, Internal Medicine Red Team - Pager [phone] Associated attestation - Treva Diaz MD - [...] likely suture removal on 06/05/24. Please page [phone] with any questions or concerns. Activity: NWB until forefoot offloading shoe DVT prophylaxis: per primary, rec 30 days LVX or ASA81 BID Closure: Sutures (to be removed at Orthopaedic follow-up appointment) Dressing: bacitracin, xeroform, 4x4, kerlix, DEREK x 7 days Antibiotics: per primary Isra Rodriguez IV, DO 05/16/2024 Future Appointments Date Time Provider Department Center 06/05/2024 4:00 PM Elkin Garcia MD [facility] ORTH 3C [facility] * Mihaela Galvan MD - 05/15/2024 6:41 AM EDT Images from the original note were not included. [facility] Medicine - Red Team Inpatient Progress Note ID: Jossy hSanks is a 69 y.o. year old male [...] Procedure Component Value - Date/Time Tissue culture [[id number]] (Abnormal) Collected: 05/14/24 1133 Lab Status: Preliminary result Specimen: Toe Updated: 05/14/24 1459 Gram Stain -- Few Neutrophils seen Rare Gram Positive Cocci in pairs seen Results called to and read back by Dr. Mihaela Galvan 05/14/24 14:57:00 Organism Gram Positive Cocci in pairs Blood culture [[id number]] Collected: 05/10/24 0232 Lab Status: Preliminary result Specimen: Blood from Hand, Right Updated: 05/14/24 0701 Blood Culture No growth at 4 days. Skin/Superficial Wound Culture Toe [[id number]] (Abnormal) Collected: 05/10/24 0256 Lab Status: Final [...] PGY-1, Internal Medicine Red Team - Pager [phone] Associated attestation - Treva Diaz MD - [...] of two midnights or is on the [facility] inpatient only procedure list (status [...] Center 06/05/2024 4:00 PM Elkin Garcia MD [facility] ORTH 3C [facility] * Savannah Sy RN - 05/14/2024 1:45 [...] Center 06/05/2024 4:00 PM Elkin Garcia MD [facility] ORTH 3C [facility] * Mihaela Galvan MD - 05/14/2024 6:04 AM EDT [facility] Medicine - Red Team Inpatient Progress [...] PGY-1, Internal Medicine Red Team - Pager [phone] Associated attestation - Treva Diaz MD - [...] of two midnights or is on the [facility] inpatient only procedure list (status [...] Galvan MD - 05/13/2024 6:28 AM EDT [facility] Medicine - Red Team Inpatient Progress [...] PGY-1, Internal Medicine Red Team - Pager [phone] Associated attestation - Treva Diaz MD - [...] of two midnights or is on the [facility] inpatient only procedure list (status C) due to: RLE cellulitis with concern forosteomyelitis. Continue on iv antibiotics and follow up with orthopedics regarding any surgical debridement . * Sarwat Marti - 05/12/2024 2:20 PM EDT Development Trainer Encounter Note Patient Name: Jossy Shanks : [id number] MR#: [id number] Admit Date: 05/10/2024 2:12 AM Hospital Day 2 days Narrative:Visited to introduce and assess acceptance of Development Trainer services. Patient was sleeping and I will visit an other time. Assessment: Intervention and Outcome: Follow-up: Time in Direct Care: Sarwat Marti 05/12/2024 * Mihaela Galvan MD - 05/12/2024 6:36 AM EDT [facility] Medicine - Red Team Inpatient Progress [...] PGY-1, Internal Medicine Red Team - Pager [phone] Associated attestation - Treva Diaz MD - [...] of two midnights or is on the [facility] inpatient only procedure list (status C) due to: RLE cellulitis with concern forosteomyelitis. Continue on iv antibiotics and discuss with orthopedics regarding any urgent need for surgical debridement. * Rodriguez Tian MD - 05/11/2024 10:23 AM EDT MEDICINE PAGER [phone] - [facility] Daily Progress Note Admit Date: 05/10/2024 [...] controlled Afib (Xarelto, dilt, coreg), admitted to [facility] on 05/10/2024 with LE cellulitis 2/2 right [...] CHO counting level 2 Last BM documented: (MUFF WINDER) DVT Prophylaxis: Heparin DOAC Code Status: Attempt [...] of two midnights or is on the [facility] inpatient only procedure list (status [...] presented to a local emergency hedrick yesterday (ako22vv birthday) due to ongoing wound issues and [...] minimumof two midnights or is on the [facility] inpatient only procedure list (status [...] on Lasix, HTN on Losartan,who presented to [facility] for rt LE cellulitis, transferred to [facility] for septic shock. Interval Events: - lactate [...] 05/10/2024 2:37 AM) Result Value WORKSTATION ID [id number] Impression Bibasilar atelectasis. Thank you for letting us participate in the care of this patient. If you are a health care provider and have any questions regarding this report, please contact the number below. For patients who have questions please contact the health gericare aide that requested your imaging first. foot pending [...] Thomas MD - 05/10/2024 2:56 AM EDT [facility] TeleICU Initial Assessment Note I established audio/visual [...] hour(s)) Lactate, whole blood, send to lab ([facility]) Result Value Lactate WB 2.3 (H) [...] infection if clinical appearance is worrisome -Awaiting [facility] admission K+ level and Chem 7 -Would [...] medical record. IR History: None listed at [facility] Anticoagulation/Antiplatelet: None listed Labs: Lab Results Component [...] Assessment: 69 y.o. male with OM requiring termite control service representative IV ABX presenting to Interventional Radiology for [...] 6.64) performed by Elkin Garcia MD at [facility] MAIN OR Social History and Habits: [...] medical record. IR History: None listed at [facility] Anticoagulation/Antiplatelet: None listed Labs: Lab Results Component [...] 6.64) performed by Elkin Garcia MD at [facility] MAIN OR Social History and Habits: [...] amputation. Isra Rodriguez IV, DO Orthopaedic Surgery [facility] * Carlotta Davis MD - 05/10/2024 5:48 [...] on home oxygen, HFpEF, HTN, admitted to [facility] on 05/10/2024, now on Hospital Day #0, for RLE cellulitis SUBJECTIVE History of Present Illness: Per admitting provider Jossy Shanks is a 69 y.o. year old male with PMH significant for IDDM, Afib rate controlled, CKD (bsl cr 1.5), COPD not on home oxygen, HFpEF, HTN who presented to [facility] for rt LE cellulitis, transferred to [facility] for RLE cellulitis after trauma to his [...] knee. Fevers & chills for last 24hrs. [place] lightheaded, weak, & couldn't get out of [...] prior to OSH departure. On arrival to [facility]: HR 96, o2 sat mid 90s on [...] limbs -chronic Motor Exam: Upper Limb Bilateral: Training And Development Project Leader Strength 5/5 Wrist Flexion/Extension 5/5 Elbow Flexion/Extension [...] in the last 7068 hours. Invalid input(s): [id number] Recent Labs 05/10/24219 HA1C 5.9* Lipids: Heme: No results for input(s): LDH, HAPTOGLOBIN, URICACID in the last 168 hours. ABG (Arterial Blood Gas): No results found for: PHART, PO2ART, RFD5AEW, ZJL6ZUU VBG (Venous Blood Gas): No results for input(s): PHVEN, SZV6XRK, PO2VEN, LNZ0FQR, BEVEN, AOX8XQM in the last 72hours. EKG: No results [...] 05/10/2024 2:37 AM) Result Value WORKSTATION ID [id number] Impression Bibasilar atelectasis. Thank you for letting us participate in the care of this patient. If you are a health care provider and have any questions regarding this report, please contact the number below. For patients who have questions please contact the health gericare aide that requested your imaging first. Foot wwo Contrast Right (Exam End: 05/10/2024 5:51 AM) Result Value WORKSTATION ID [id number] Impression 1. Soft tissue irregularity of the [...] who have questions please contact the health gericare aide that requested your imaging first. Medications: Scheduled: [...] controlled Afib (Xarelto, dilt, coreg), admitted to [facility] on 05/10/2024, now on Hospital Day #0, [...] Internal Medicine PGY2 Medicine Team: Red, Pager #[phone] Associated attestation - Treva Diaz MD - [...] home oxygen, HFpEF, HTN who presented to [facility] for rt LE cellulitis, transferred to [facility] for septic shock. Reports end of March [...] knee. Fevers & chills for last 24hrs. [place] lightheaded, weak, & couldn't get out of [...] prior to OSH departure. On arrival to [facility]: HR 96, o2 sat mid 90s on [...] mobilizes w/out assistance. Darion Morgan is DPOA; [phone] Physical Exam: Vitals: Last value Range last [...] Medicine, PGY2 05/10/2024 MICU Blue Team Pager #[phone] documented in this encounter Procedure Notes * Juan José Flowers MD - 05/21/2024 11:49 AM EDT IR PROCEDURE NOTE Procedure: Tunneled central venous catheter placement. Indication for Procedure: Per Guanako Saldanajaren Shanks is a 69 y.o. male with PMH of CKD, DM, COPD, A.fib, admitted for RLE cellulitis andosteomyelitis s/p 2ng toe amputation requiring termite control service representative IV antibiotic administration who presents to Interventional [...] Patient is medically ready for discharge to [facility]. Needs for Transition of Care: Plan for discharge is: Group Home Facility / Swing OPAT Orders: ID Consult Ordered Agency Referrals & Follow-up Care: Contact information for follow-up [facility] [address] [place] [address] [place] [address] Transportation: family or friend will provide Wheelchair [...] through: Primary Insurance: [employer] MANAGED MEDICARE Payor: [employer] MANAGED MEDICARE / Plan: [facility] MANAGED MEDICARE COMPLETE / Product Type: *No Product type* / Secondary Insurance: N/A Prescription Coverage: Yes This plan was formulated with input from patient and team. All are in agreement with plan. Shirley Samuel RN CM In Flight Refueling System Repairer- Medicine Office of Care Management Ext: [phone] Pager: [phone] * Plan of Care - Juan José [...] and were able to stop the bleeding. Office Machine Technician carolyn a hemoglobin when patient got back [...] Operative Note Patient Name: Jossy Shanks : [id number] MR#: [id number] Case Date: 05/22/2024 Surgeon: Surgeons and Role: [...] Access Non-Dialysis 05/21/2024 Juan José Flowers MD [facility] INTERVENTIONL RAD PRO AMPUTATION METATARSAL+TOE, SINGLE Right 05/14/2024 AMPUTATION, TRANSMETATARSAL TOE, ONE TOE (WRVU 6.64) performed by Elkin Garcia MD at [facility] MAIN OR SOCIAL HX: Social History [...] who have questions, please contact the health gericare aide that requested your imaging first. Teofilo Ruiz, [...] who have questions please contact the health gericare aide that requested your imaging first. Chest One View Final Result Bibasilar atelectasis. Thank you for letting us participate in the care of this patient. If you are a health care provider and have any questions regarding this report, please contact the number below. For patients who have questions please contact the health gericare aide that requested your imaging first. SCOPY: Reports and images personally reviewed in H OSH RECORDS: Obtained and personally reviewed ASSESSMENT & PLAN: 69 y.o. male with past medical history of [facility] of HTN, HFpEF, CKD (bsl Cr [...] anticoagulation and significant anemia. Tl Steele MD [facility] Gastroenterology * Plan of Care - Pretty [...] Pain Flowsheets (Taken 05/20/2024802) Pain Management Interventions: vjrywl-qmb-nhmzx dosing utilized breathing exercises care clustered diversional [...] Physical Therapy Recommendation: swing bed rehabilitation facility, intermediate facility with to be determined Last Occupational Therapy Recommendation: intermediate facility, swing bed rehabilitation facility with to be determined Plan for discharge is: Group Home Facility / Swing Outpatient Agency/Support Group Needs: Homecare agency OPAT Orders: ID Consult Ordered Location: Home Home Health Services: IV Therapy Agency Referrals: Based on discussions with the multi-disciplinary healthcare team, the patient would benefit from SNF level of care at discharge. I have met with the patient to: discuss discharge planning needs. provide the [facility], Office of Care Management letter from the Special Events Fundraiser pertaining to rehab referrals. provide a letter describing our affiliations within the [facility] and educate about their right to choose where referrals are sent. provide the CMS Star Quality Rating handout. review the different levels of rehab including SNF, swing, and acute. provide a list of facilities within their preferred geographic area. request that they provide at least three choices for referral. They have requested referrals to: [facility] [address] [place] [address] [facility] [address] [place] [address] -OFFERED BED, PENDING INSURANCE AUTHORIZATION 05/20 [address] [facility] [address] [place] [address] [facility] [address] [place] [address] [facility]) [address] [place] [address] (Accepts pts only after exhausting all other local SNF options) Does patient have COVID vaccine card: Yes; Copy obtained: No Note routed to a Network Developer who will communicate referrals to facilities and provide any required information. Transportation: family or friend will provide Barriers to discharge: Discharge planning Plan going forward: Referrals routed for SNF/Swing. Care Management will continue to follow and assist with discharge planning and coordination of care as indicated. Anticipated Date of Discharge: 05/21/2024 Shirley Samuel RN CM In Flight Refueling System Repairer- Medicine Office of Care Management Ext: [phone] Pager: [phone] * Plan of Care - Pretty Ramirez [...] shock at his time of transfer to [facility]. Creatinine on admission was 3.94 mg/dL, he [...] 6.64) performed by Elkin Garcia MD at [facility] MAIN OR insulin glargine-ygfn (Semglee) (100 [...] Flowsheets (Taken 05/18/2024 0838) Pain Management Interventions: kycrnt-lvw-tufsu dosing utilized care clustered diversional activity provided [...] television Taken 05/15/2024 1825 Pain Management Interventions: rcwabi-iff-beern dosing utilized position adjusted pillow support provided [...] smartphone Taken 05/15/2024 1825 Pain Management Interventions: lsuoec-xxr-oocti dosing utilized position adjusted pillow support provided [...] 6.64) performed by Elkin Garcia MD at [facility] MAIN OR Active Non-Hospital Problems Diagnosis [...] Perception: WNL / WFL and corrective lenses pig lead melter helper Communication: WFL Range of motion, strength, coordination: [...] planning. Total Minutes, Occupational Therapy: 90 (evaluation ([id number])) 2017 OT Evaluation Code Rationale: Diagnosis & [...] and measurable assessment of functional outcome. Pager: [phone] Penny Rodriguez OT 05/16/2024 Occupational Therapy Rehabilitation [...] have. Alternately, during off-hours you may call [phone] to contact a pharmacist. * Consult Note [...] briefly on vasopressors, and then transferred to [facility] for further management. 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 05/14. Reports a hx of cellulitis in the Left leg back in 2009 for which he states he did a course of 6 week son IV abx from [facility]. Has gotten cellulitis about half a dozen times in total. Review of Systems: Pertinent positives and negatives noted in HPI. 14 point ROS otherwise negative except noted in HPI. Allergies/Adverse drug reactions: No Known Allergies Family History: Family History No data available Social History: Housing: lives in a camper in [facility] Occupation: Former [employer], retired in [...] Procedure Component Value - Date/Time Blood culture [[id number]] Collected: 05/10/24 0232 Lab Status: Final result Specimen: Blood from Hand, Right Updated: 05/15/24 0701 Blood Culture No growth at 5 days. Tissue culture [[id number]] (Abnormal) Collected: 05/14/24 1133 Lab Status: Preliminary result Specimen: Toe Updated: 05/14/24 1459 Gram Stain -- Few Neutrophils seen Rare Gram Positive Cocci in pairs seen Results called to and read back by Dr. Mihaela Galvan 05/14/24 14:57:00 Organism Gram Positive Cocci in pairs Skin/Superficial Wound Culture Toe [[id number]] (Abnormal) Collected: 05/10/24 0256 Lab Status: Final [...] follow. Please page ID Red team (pager [phone]) with questions or concerns. Emmanuel Corey, DO Internal Medicine PGY-2 Pager: [phone] Epic Chat 05/15/2024 Associated attestation - Rodriguez [...] Home Health Services: IV Therapy Agency Referrals: [place] [address] or Home Care Orders: 1. IV Antibiotics: [...] to discharge: Discharge planning Plan going forward: [facility] routed and pended. [facility] routed. Care Management will continue to follow and assist with discharge planning and coordination of care as indicated. Anticipated Date of Discharge: 05/19/2024 Shirley Samuel RN CM In Flight Refueling System Repairer- Medicine Office of Care Management Ext: [phone] Pager: [phone] * Plan of Care - Christine Ronquillo [...] Pt in agreement. Pt POC BG @ 2385 223. Pt denies pain. Pt resting in [...] Operative Note Patient Name: Jossy Shanks : [id number] MR#: [id number] Case Date: 05/14/2024 Surgeon: Surgeons and Role: [...] Garcia MD - 05/14/2024 11:16 AM EDT [facility] Operative Note Patient Name: Jossy Shanks : [id number] MR#: [id number] Case Date: 05/14/2024 Surgeon: Surgeons and Role: [...] can weight-bear as tolerated and heel off powder loader We will follow his wounds while he is here in the hospital. Surgical Infection Prevention Bundle Used? N/A Attestation: Case Date: 05/14/2024 I was present and I participated during the entire procedure (does not need to include opening and closing). Elkin Garcia MD 05/14/2024 * Consult Note - Hakeem Villa [facility] - 05/14/2024 7:15 AM EDT [facility] Pharmacokinetics Note Drug: Vancomycin Pharmacokinetic target: AUC24 (range) 400-600 mg/L.hr Jossy Shanks is a 69-year-old male receiving intermittent Vancomycin doses Recent measured serum creatinine values: 05/14/2024 05:01 1.56 mg/dL 05/13/2024 05:29 1.53 mg/dL 05/12/2024 04:45 2.03 mg/dL Assessment: Analysis of the most recent level(s) using [employer] gives the following patient-specific pharmacokinetic parameters: CL: [...] controlled Afib (Xarelto, dilt, coreg), admitted to [facility] on 05/10/2024 with LE cellulitis 2/2 right foot trauma. Reason for intervention: Diet order question - what type of carb control diet does pt need? Nutrition Recommendations: Carb control level 3 diet Monitor po intake Monitor blood glucose levels Monitor weight trends I was able to discuss plan with provider Medicine Pager [phone] . Nutrition consult received regarding what type of carb control diet pt needs. Estimated nutrition needs based on ideal body weight of 89kg: Calories: 0777-5305 calories (20-25kcal/kg) Protein: 89-107g (1-1.2g/kg) Nutrition to [...] border dressing. (Melgisorb Ag 6x6 PS # [id number]) (Melgisorb Ag 4x4 PS # [id number]) Sacrum/ischium: open to air, utilize Z-guard if patient begins to have breakdown Supplies left at the bedside: 1 sheet of Melgisorb Ag, wound cleanser Wound Care will complete the consult at this time. If there are further issues please re-consult via eD-H. Discussed plan with: RN: Don Please contact Keeley Russell RN on eDH secure chat or the wound care team on pager [phone] with skin and wound care concerns or [...] surrogate would be surrogate decision maker per [place] surrogate decision making law. (Only good for 180 days) Son CONRADO Any patient receiving care in [place] must abide by [place] law. The hierarchy for surrogate decision making [...] (i) The agent with financial power of ip technology transactions attorney or a conservator appointed in accordance [...] Current DME: none Home Address listed as: [address] [place] [address] Pt is not currently residing here. Current address is as below: [place] [address] Social & Family Supports: All names listed below confirmed with patient as current and correct Extended Emergency Contact Information Primary Emergency Contact: Eddie Shanks Mobile Relation: Son/Frshqmuv-fk-wqr Secondary Emergency Contact: Gifty Bucio [facility] Relation: Mother Current Care Provided by: self [...] Pertinent/Service Specific Information: Health/Prescription Coverage: Primary Insurance: [employer] [facility] OOS Payor: [facility] [employer] [facility] OOS / Plan: [facility] OOS PPO / Product Type: *No Product type* / Secondary Insurance: N/A ; Prescription Coverage: Yes Preferred Pharmacy: [id number] - [place], [place] - [address] [address] [address] [facility] [id number] Primary Care Provider listed: None None Pt does have PCP in [facility] Patient/Caregiver Goals of Treatment: Potential Needs for Transition of Care: none, home health care Agency Referrals: I have met with the patient to: discuss discharge planning needs. provide the [facility], Office of Care Management letter from the Special Events Fundraiser pertaining to rehab referrals. provide a letter describing our affiliations within the [facility] and educate about their right to choose where referrals are sent. provide a list of Home Health Agencies / Durable Medical Equipment vendors which serve their preferred geographic area. provided patient with [facility] Star Quality Rating handout. They have requested referrals to: [facility] [address] [place] [address] Note routed to a Network Developer who will communicate referrals to facilities and [...] wait list for housing (an apartment) in [place], [place]; ETA for move-in is 4-8weeks. He does not feel that his local family members would be able to house him in the interim andexpresses that he is comfortable in his camper, which has amenities. He is fully independent at baseline but has used [facility] health in the past; a [...] Clinical Pharmacist Note - VancFD Jossy Shanks [id number] 1955 Jossy Shanks is a 69 y.o. [...] Alternately, during off-hours (9p-) you may call [phone] to contact a pharmacist. Rodriguez Sinclair RPH [...] intact shoulder abduction, elbow flexion/extension, wrist flexion/extension, manager loss prevention, EPL, AIN, IO Brisk capillary refill distally [...] intact shoulder abduction, elbow flexion/extension, wrist flexion/extension, manager loss prevention, EPL, AIN, IO Brisk capillary refill distally [...] changes develop in his course. Please page [phone] following completion of requestedimaging and studies. - Activity: no restrictions at this time - DVT prophylaxis: per primary; recommend lovenox 30 mg BID - Antibiotics: per ID - Imaging / studies needed: MRI wwo contrast, ABIs, ESR, CRP Tyrone Rehman MD Orthopaedic Surgery, [phone] documented in this encounter Plan of Treatment Upcoming Encounters Date Type Department Care Team (Late st Contact Info) Description 06/10/2024 10:30 AM EDT Office Visit [place] [phone] Elkin Garcia MD [facility] [address] [place] [address] Scheduled Referrals Name Type Priority Associated Diagnoses [...] EDT Upper Gi Endoscopy, W/Dir Submuc Inj (99431) 05/22/2024 4:39 PM EDT ? melena Upper Gi Endoscopy, Ctrl Bleed ([id number]) 05/22/2024 4:39 PM EDT ? melena Upper GI Endoscopy, Diagnostic ([id number]) 05/22/2024 4:39 PM EDT ? melena UPPER [...] - 199 mg/dL 05/23/2024 12:32 PM EDT [facility] Comment:Supplemental ranges: <140 mg/dL before meals <180 mg/dL all other times of the day. Blood CAPILLARY BLOOD / Unknown 05/23/2024 12:32 PM EDT 05/23/2024 12:32 PM EDT Saba Spears MD POINT OF CARE TEST ORDERABLES Performing Organization Address City/State/[facility] Co de Phone Number [facility] [place] [address] * (ABNORMAL) Basic Metabolic Panel (05/23/2024 9:46 AM EDT) Glucose 142 65 - 199 mg/dL 05/23/2024 11:27 AM EDT [facility] Comment:Glucose Concentratio n >=200 mg/dL plus symptoms is consistent with Diabetes Mellitus. Blood Urea Nitrogen 83(H) 10 - 20 mg/dL 05/23/2024 11:27 AM EDT [facility] Creatinine 2.64(H) 0.80 - 1.50 mg/dL 05/23/2024 11:27 AM EDT [facility] Sodium 140 135 - 145 mMol/L 05/23/2024 11:27 AM [facility] Potassium 5.2(H) 3.5 - 5.0 mMol/L 05/23/2024 11:27 AM [facility] Chloride 111(H) 98 - 107 mMol/L 05/23/2024 11:27 AM [facility] Carbon Dioxide 20(L) 22 - 31 mMol/L 05/23/2024 11:27 AM [facility] Anion Gap 9 5 - 15 mMol/L 05/23/2024 11:27 AM [facility] Calcium 9.3 8.5 - 10.5 mg/dL 05/23/2024 11:27 AM [facility] Est Glomerular Filtration Rate - Male 25 mL/min/1. 73 m?? 05/23/2024 11:27 AM [facility] Comment: This patient's estimated GFR [...] EDT Saba Spears MD CHEMISTRY ORDERABLE S [facility] [place] [address] * (ABNORMAL) CBC (with Diff) (05/23/2024 9:46 AM EDT) White Blood Cell 12.66(H) 4.00 - 9.50 x10(3)/mc L 05/23/2024 10:52 AM [facility] Red Blood Cell 2.56(L) 4.58 - 5.54 x10(6)/mc L 05/23/2024 10:52 AM [facility] Hemoglobin 7.7(L) 13.7 - 16.5 g/dL 05/23/2024 10:52 AM [facility] Hematocrit 24.3(L) 40.5 - 48.5 % 05/23/2024 10:52 AM [facility] Mean Cell Volume 94.9(H) 82.9 - 93.1 fL 05/23/2024 10:52 AM [facility] Mean Cell Hemoglobin 30.1 27.5 - 32.1 pg 05/23/2024 10:52 AM [facility] Mean Cell Hemoglobin Concentration 31.7(L) 32.0 - 35.7 g/dL 05/23/2024 10:52 AM [facility] Platelet 370(H) 145 - 357 x10(3)/mc L 05/23/2024 10:52 AM [facility] Mean Platelet Volume 11.6 7.6 - 12.9 fL 05/23/2024 10:52 AM [facility] RDW Standard Deviation 57.1(H) 36.0 - 45.0 fL 05/23/2024 10:52 AM [facility] RDW coefficient of variation 16.9(H) 11.4 - 13.8 % 05/23/2024 10:52 AM [facility] NRBC% auto 0.0 % 05/23/2024 10:52 AM [facility] NRBC Absolute 0.00 0.00 - 0.00 x10(3)/mc L 05/23/2024 10:52 AM [facility] Neutrophil % 81.6 % 05/23/2024 10:52 AM EDT [facility] Neutrophil Absolute 10.34(H) 1.70 - 6.10 x10(3)/mc L 05/23/2024 10:52 AM EDT [facility] Lymph % 5.1 % 05/23/2024 10:52 AM EDT [facility] Lymph Absolute 0.64(L) 0.90 - 3.20 x10(3)/mc L 05/23/2024 10:52 AM EDT [facility] Monocyte % 10.7 % 05/23/2024 10:52 AM EDT [facility] Monocyte Absolute 1.35(H) 0.30 - 0.90 x10(3)/mc L 05/23/2024 10:52 AM EDT [facility] Eos % 1.7 % 05/23/2024 10:52 AM EDT [facility] Eos Absolute 0.22 0.00 - 0.40 x10(3)/mc L 05/23/2024 10:52 AM EDT [facility] Basophil % 0.3 % 05/23/2024 10:52 AM EDT [facility] Baso Absolute 0.04 0.00 - 0.10 x10(3)/mc L 05/23/2024 10:52 AM EDT [facility] Immature Gran % 0.6 % 10:52 AM EDT [facility] Immature Gran Absolute 0.07(H) 0.00 - 0.04 x10(3)/mc L 05/23/2024 10:52 AM EDT [facility] Blood VENOUS BLOOD SPECIMEN / Unknown IP Care Team Draw / Unknown 05/23/2024 9:46 AM EDT 05/23/2024 10:01 AM EDT Saba Spears MD HEMATOLOGY ORDERABL ES [facility] [place] [address] * POC, GLUCOSE (05/23/2024 7:44 AM EDT) Glucometer, POC 127 65 - 199 mg/dL 05/23/2024 7:44 AM EDT [facility] Comment:Supplemental ranges: <140 mg/dL before meals <180 mg/dL all other times of the day. Blood CAPILLARY BLOOD / Unknown 05/23/2024 7:44 AM EDT 05/23/2024 7:45 AM EDT Saba Speasr MD POINT OF CARE TEST ORDERABLES Performing Organization Address City/[facility]/ZIP Co de Phone Number [facility] [place] [address] * Prepare RBC (05/23/2024 3:49 AM EDT) Status Information Transfused [facility] Product Identification RBC [facility] Unit Number [id number] [facility] Product Code W8950A45 [facility] Unit Blood Type OPOS [facility] Specimen Expiration Date [id number] [facility] Volulme 350 [facility] Issue Date / Time [id number] [facility] Blood 05/22/2024 12: 42 PM EDT Saba Spears MD BLOOD BANK PRODUCT ORDERABLES Performing Organization Address City/[facility]/ZIP Co de Phone Number [facility] [place] [address] * POC, GLUCOSE (05/23/2024 3:49 AM EDT) Glucometer, POC 152 65 - 199 mg/dL 05/23/2024 3:49 AM EDT [facility] Comment:Supplemental ranges: <140 mg/dL before meals <180 mg/dL all other times of the day. Blood CAPILLARY BLOOD / Unknown 05/23/2024 3:49 AM EDT 05/23/2024 3:49 AM EDT Saba Spears MD POINT OF CARE TEST ORDERABLES Performing Organization Address City/[facility]/ZIP Co de Phone Number [facility] [place] [address] * POC, GLUCOSE (05/23/2024 1:26 AM EDT) [facility] Glucometer, POC 138 65 - 199 mg/dL 05/23/2024 1:26 AM EDT [facility] Comment:Supplemental ranges: <140 mg/dL before meals <180 mg/dL all other times of the day. Blood CAPILLARY BLOOD / Unknown 05/23/2024 1:26 AM EDT 05/23/2024 1:26 AM EDT Saba Spears MD POINT OF CARE TEST ORDERABLES Performing Organization Address [facility]/ZIP Co de Phone Number [facility] [place] [address] * (ABNORMAL) Scan, Peripheral Blood (05/23/2024 1:19 AM EDT) [facility] RBC Morphology Abnormal 05/23/2024 3:44 AM EDT [facility] Platelet Estimate Increased(A) Normal 05/23/2024 3:44 AM EDT [facility] Ovalocytes 1-5 /HPF 05/23/2024 3:44 AM EDT [facility] Sofía cells 1-5 /HPF 05/23/2024 3:44 AM EDT [facility] Blood VENOUS BLOOD SPECIMEN / Unknown IP Care Team Draw / Unknown 05/23/2024 1:19 AM EDT 05/23/2024 2:05 AM EDT Mary De La Fuente MD HEMATOLOGY ORDERAB LES [facility] [place] [address] * Magnesium (05/23/2024 1:19 AM EDT) Magnesium 0.86 0.69 - 1.07 mMol/L 05/23/2024 2:40 AM EDT [facility] Blood VENOUS BLOOD SPECIMEN / Unknown IP Care Team Draw / Unknown 05/23/2024 1:19 AM EDT 05/23/2024 2:05 AM EDT Mary De La Fuente MD CHEMISTRY ORDERABL ES Performing Organization Address City/[facility]/ZIP Co de Phone Number [facility] [place] [address] * (ABNORMAL) Phosphorus (05/23/2024 1:19 AM EDT) Phosphorus 5.8(H) 2.5 - 4.5 mg/dL 05/23/2024 2:40 AM EDT [facility] Blood VENOUS BLOOD SPECIMEN / Unknown IP Care Team Draw / Unknown 05/23/2024 1:19 AM EDT 05/23/2024 2:05 AM EDT Mary De La Fuente MD CHEMISTRY ORDERABL ES Performing Organization Address City/[facility]/ZIP Co de Phone Number [facility] [place] [address] * (ABNORMAL) Basic Metabolic Panel (non-fasting) (05/23/2024 1:19 AM EDT) Glucose 158 65 - 199 mg/dL 05/23/2024 3:34 AM EDT [facility] Comment:Glucose Concentratio n >=200 mg/dL plus symptoms is consistent with Diabetes Mellitus. Blood Urea Nitrogen 85(H) 10 - 20 mg/dL 05/23/2024 3:34 AM EDT [facility] Creatinine 2.70(H) 0.80 - 1.50 mg/dL 05/23/2024 3:34 AM EDT [facility] Sodium 139 135 - 145 mMol/L 05/23/2024 3:34 AM EDT [facility] Potassium 4.9 3.5 - 5.0 mMol/L 05/23/2024 3:34 AM EDT [facility] Chloride 108(H) 98 - 107 mMol/L 05/23/2024 3:34 AM EDT [facility] Carbon Dioxide 20(L) 22 - 31 mMol/L 05/23/2024 3:34 AM EDT [facility] Anion Gap 11 5 - 15 mMol/L 05/23/2024 3:34 AM EDT [facility] Calcium 9.1 8.5 - 10.5 mg/dL 05/23/2024 3:34 AM EDT [facility] Est Glomerular Filtration Rate - Male 25 mL/min/1. 73 m?? 05/23/2024 3:34 AM [facility] Comment: This patient's estimated GFR [...] Foundation Fasting Status 05/23/2024 3:34 AM T [facility] Blood VENOUS BLOOD SPECIMEN / Unknown IP Care Team Draw / Unknown 05/23/2024 1:19 AM EDT 05/23/2024 2:05 AM EDT Mary De La Fuente MD CHEMISTRY ORDERABL ES [facility] [place] [address] * (ABNORMAL) CBC (with Diff) (05/23/2024 1:19 AM EDT) White Blood Cell 12.66(H) 4.00 - 9.50 x10(3)/mc L 05/23/2024 3:44 AM [facility] Red Blood Cell 2.61(L) 4.58 - 5.54 x10(6)/mc L 05/23/2024 3:44 AM [facility] Hemoglobin 7.8(L) 13.7 - 16.5 g/dL 05/23/2024 3:44 AM [facility] Hematocrit 24.3(L) 40.5 - 48.5 % 05/23/2024 3:44 AM [facility] Mean Cell Volume 93.1 82.9 - 93.1 fL 05/23/2024 3:44 AM [facility] Mean Cell Hemoglobin 29.9 27.5 - 32.1 pg 05/23/2024 3:44 AM [facility] Mean Cell Hemoglobin Concentration 32.1 32.0 - 35.7 g/dL 05/23/2024 3:44 AM [facility] Platelet 381(H) 145 - 357 x10(3)/mc L 05/23/2024 3:44 AM [facility] Mean Platelet Volume 11.4 7.6 - 12.9 fL 05/23/2024 3:44 AM [facility] RDW Standard Deviation 55.1(H) 36.0 - 45.0 fL 05/23/2024 3:44 AM [facility] RDW coefficient of variation 16.5(H) 11.4 - 13.8 % 05/23/2024 3:44 AM [facility] NRBC% auto 0.0 % 05/23/2024 3:44 AM [facility] NRBC Absolute 0.00 0.00 - 0.00 x10(3)/mc L 05/23/2024 3:44 AM [facility] Neutrophil % 79.4 % 05/23/2024 3:44 AM [facility] Comment:This is an appended report. These results have been appended to a previously preliminary verified report. Neutrophil Absolute 10.06(H) 1.70 - 6.10 x10(3)/mc L 05/23/2024 3:44 AM [facility] Comment:This is an appended report. These results have been appended to a previously preliminary verified report. Lymph % 5.8 % 05/23/2024 3:44 AM [facility] Comment:This is an appended report. These results have been appended to a previously preliminary verified report. Lymph Absolute 0.73(L) 0.90 - 3.20 x10(3)/mc L 05/23/2024 3:44 AM [facility] Comment:This is an appended report. These results have been appended to a previously preliminary verified report. Monocyte % 12.1 % 05/23/2024 3:44 AM [facility] Comment:This is an appended report. These results have been appended to a previously preliminary verified report. Monocyte Absolute 1.53(H) 0.30 - 0.90 x10(3)/mc L 05/23/2024 3:44 AM [facility] Comment:This is an appended report. These results have been appended to a previously preliminary verified report. Eos % 1.9 % 05/23/2024 3:44 AM [facility] Comment:This is an appended report. These results have been appended to a previously preliminary verified report. Eos Absolute 0.24 0.00 - 0.40 x10(3)/mc L 05/23/2024 3:44 AM [facility] Comment:This is an appended report. These results have been appended to a previously preliminary verified report. Basophil % 0.3 % 05/23/2024 3:44 AM [facility] Comment:This is an appended report. These results have been appended to a previously preliminary verified report. Baso Absolute 0.04 0.00 - 0.10 x10(3)/mc L 05/23/2024 3:44 AM [facility] Comment:This is an appended report. These results have been appended to a previously preliminary verified report. Immature Gran % 0.5 % 3:44 AM EDT [facility] Comment:This is an appended report. These results have been appended to a previously preliminary verified report. Immature Gran Absolute 0.06(H) 0.00 - 0.04 x10(3)/mc L 05/23/2024 3:44 AM EDT [facility] Comment:This is an appended report. These results have been appended to a previously preliminary verified report. Blood VENOUS BLOOD SPECIMEN / Unknown IP Care Team Draw / Unknown 05/23/2024 1:19 AM EDT 05/23/2024 2:05 AM EDT Mary De La Fuente MD HEMATOLOGY ORDERAB LES Performing Organization Address City/[facility]/ZIP Co de Phone Number [facility] [place] [address] * POC, GLUCOSE (05/22/2024 8:21 PM EDT) Glucometer, POC 152 65 - 199 mg/dL 05/22/2024 8:21 PM EDT [facility] Comment:Supplemental ranges: <140 mg/dL before meals <180 mg/dL all other times of the day. Blood CAPILLARY BLOOD / Unknown 05/22/2024 8:21 PM EDT 05/22/2024 8:21 PM EDT Saba Spears MD POINT OF CARE TEST ORDERABLES [facility] [place] [address] * POC, GLUCOSE (05/22/2024 6:20 PM EDT) Glucometer, POC 130 65 - 199 mg/dL 05/22/2024 6:20 PM EDT [facility] Comment:Supplemental ranges: <140 mg/dL before meals <180 mg/dL all other times of the day. Blood CAPILLARY BLOOD / Unknown 05/22/2024 6:20 PM EDT 05/22/2024 6:21 PM EDT Saba Spears MD POINT OF CARE TEST ORDERABLES [facility] [place] [address] * Transfuse RBC (05/22/2024 2:45 PM EDT) Saba Spears MD NURSING TREATMENT O RDERABLES - BLOOD ADMIN * UPPER GI ENDOSCOPY (05/22/2024 12:48 PM EDT) UPPER GI ENDOSCOPY [facility] Endoscopy ___ Procedure Date: 05/22/2024 12:48 PM ? Patient Name: Jossy Shanks ? N: [id number] ? Date of : 1955 ? Age: 69 ? Order #: [id number] ? Instrument Name: [id number]- [id number] ? ___ Procedure: ? Upper GI endoscopy [...] (PATIENT HISTORY FOUND) (05/22/2024 11:18 AM EDT) [facility] Recheck Progress Complete 05/22/2024 1:01 PM EDT [facility] Blood VENOUS BLOOD SPECIMEN / Unknown IP Care Team Draw / Unknown 05/22/2024 11:18 AM EDT 05/22/2024 11:27 AM EDT Saba Spears MD BLOOD BANK LAB FADY GAO [facility] [place] [address] * Type and screen ([facility]/CGP/TAAR) (05/22/2024 11:18 AM EDT) Pathologist [facility] ABOR Type O POSITIVE 05/22/2024 12:31 PM EDT [facility] PATIENT HISTORY Found 05/22/2024 12:31 PM EDT [facility] Expires at [id number] on: 05-22-2024 05/22/2024 12:31 PM EDT [facility] ANTIBODY SCREEN AUTOMATED Negative 05/22/2024 12:31 PM EDT [facility] T&S only valid at [facility] 05/22/2024 12:31 PM EDT [facility] Blood VENOUS BLOOD SPECIMEN / Unknown IP Care Team Draw / Unknown 05/22/2024 11:18 AM EDT 05/22/2024 11:27 AM EDT Narrative [facility] - 05/22/2024 12:31 PM EDT This Type and Screen result is only valid at the [facility] Saba Spears MD BLOOD BANK LAB ORDE RABLES Performing Organization Address City/[facility]/ZIP Co de Phone Number [facility] [place] [address] * (ABNORMAL) Hemoglobin and Hematocrit, blood (05/22/2024 11:18 AM EDT) Hemoglobin 6.9(L) 13.7 - 16.5 g/dL 05/22/2024 12:02 PM EDT [facility] Hematocrit 21.4(L) 40.5 - 48.5 % 05/22/2024 12:02 PM EDT [facility] Blood VENOUS BLOOD SPECIMEN / Unknown IP Care Team Draw / Unknown 05/22/2024 11:18 AM EDT 05/22/2024 11:36 AM EDT Saba Spears MD HEMATOLOGY ORDERABL ES [facility] [place] [address] * POC, GLUCOSE (05/22/2024 11:14 AM EDT) Glucometer, POC 126 65 - 199 mg/dL 05/22/2024 11:17 AM EDT [facility] Comment:Supplemental ranges: <140 mg/dL before meals <180 mg/dL all other times of the day. Blood CAPILLARY BLOOD / Unknown 05/22/2024 11:14 AM EDT 05/22/2024 11:18 AM EDT Saba Spears MD POINT OF CARE TEST ORDERABLES [facility] [place] [address] * POC, GLUCOSE (05/22/2024 8:07 AM EDT) Glucometer, POC 132 65 - 199 mg/dL 05/22/2024 8:08 AM EDT [facility] Comment:Supplemental ranges: <140 mg/dL before meals <180 mg/dL all other times of the day. Blood CAPILLARY BLOOD / Unknown 05/22/2024 8:07 AM EDT 05/22/2024 8:08 AM EDT Saba Spears MD POINT OF CARE TEST ORDERABLES Performing Organization Address City/[facility] Co de Phone Number [facility] [place] [address] * (ABNORMAL) Hepatic Function Panel (05/22/2024 5:18 AM EDT) Albumin 2.6(L) 3.2 - 5.2 g/dL 05/22/2024 9:50 AM EDT [facility] Aspartate Aminotransferase 18 <=39 unit/L 05/22/2024 9:50 AM EDT [facility] Alanine Aminotransferase 42 0 - 55 unit/L 05/22/2024 9:50 AM EDT [facility] Alkaline Phosphatase 84 40 - 130 unit/L 05/22/2024 9:50 AM EDT [facility] Bilirubin, Total <0.2 <=1.3 mg/dL 05/22/2024 9:50 AM EDT [facility] Bilirubin, Direct <0.2 0.0 - 0.3 mg/dL 05/22/2024 9:50 AM EDT [facility] Protein, Total 6.0(L) 6.1 - 8.0 g/dL 05/22/2024 9:50 AM EDT [facility] Blood VENOUS BLOOD SPECIMEN / Unknown IP Care Team Draw / Unknown 05/22/2024 5:18 AM EDT 05/22/2024 5:45 AM EDT Saba Spears MD CHEMISTRY ORDERABLE S Performing Organization Address City/[facility]/ZIP Co de Phone Number [facility] [place] [address] * Magnesium (05/22/2024 5:18 AM EDT) Magnesium 0.93 0.69 - 1.07 mMol/L 05/22/2024 6:16 AM EDT [facility] Blood VENOUS BLOOD SPECIMEN / Unknown IP Care Team Draw / Unknown 05/22/2024 5:18 AM EDT 05/22/2024 5:45 AM EDT Mary De La Fuente MD CHEMISTRY ORDERABL ES Performing Organization Address [facility] Co de Phone Number [facility] [place] [address] * (ABNORMAL) Phosphorus (05/22/2024 5:18 AM EDT) Phosphorus 5.8(H) 2.5 - 4.5 mg/dL 05/22/2024 6:16 AM EDT [facility] Blood VENOUS BLOOD SPECIMEN / Unknown IP Care Team Draw / Unknown 05/22/2024 5:18 AM EDT 05/22/2024 5:45 AM EDT Mary De La Fuente MD CHEMISTRY ORDERABL ES Performing Organization Address City/[facility]/ZIP Co de Phone Number [facility] [place] [address] * (ABNORMAL) Basic Metabolic Panel (05/22/2024 5:18 AM EDT) Glucose 121 65 - 199 mg/dL 05/22/2024 6:16 AM [facility] Comment:Glucose Concentratio n >=200 mg/dL plus symptoms is consistent with Diabetes Mellitus. Blood Urea Nitrogen 97(H) 10 - 20 mg/dL 05/22/2024 6:16 AM [facility] LABORATORY Creatinine 2.77(H) 0.80 - 1.50 mg/dL 05/22/2024 6:16 AM [facility] Sodium 138 135 - 145 mMol/L 05/22/2024 6:16 AM [facility] Potassium 5.1(H) 3.5 - 5.0 mMol/L 05/22/2024 6:16 AM [facility] Chloride 110(H) 98 - 107 mMol/L 05/22/2024 6:16 AM [facility] Carbon Dioxide 20(L) 22 - 31 mMol/L 05/22/2024 6:16 AM [facility] Anion Gap 8 5 - 15 mMol/L 05/22/2024 6:16 AM [facility] Calcium 9.4 8.5 - 10.5 mg/dL 05/22/2024 6:16 AM [facility] Est Glomerular Filtration Rate - Male 24 mL/min/1. 73 m?? 05/22/2024 6:16 AM [facility] Comment: This patient's estimated GFR [...] Fasting Status No 05/22/2024 6:16 AM EDT [facility] Blood VENOUS BLOOD SPECIMEN / Unknown IP Care Team Draw / Unknown 05/22/2024 5:18 AM EDT 05/22/2024 5:45 AM EDT Mary De La Fuente MD CHEMISTRY ORDERABL ES [facility] [place] [address] * (ABNORMAL) CBC (with Diff) (05/22/2024 5:18 AM EDT) White Blood Cell 14.70(H) 4.00 - 9.50 x10(3)/mc L 05/22/2024 5:52 AM EDT [facility] Red Blood Cell 2.37(L) 4.58 - 5.54 x10(6)/mc L 05/22/2024 5:52 AM EDT [facility] Hemoglobin 7.2(L) 13.7 - 16.5 g/dL 05/22/2024 5:52 AM T [facility] Hematocrit 22.1(L) 40.5 - 48.5 % 05/22/2024 5:52 AM T [facility] Mean Cell Volume 93.2(H) 82.9 - 93.1 fL 05/22/2024 5:52 AM T [facility] Mean Cell Hemoglobin 30.4 27.5 - 32.1 pg 05/22/2024 5:52 AM EDT [facility] Mean Cell Hemoglobin Concentration 32.6 32.0 - 35.7 g/dL 05/22/2024 5:[facility] Platelet 366(H) 145 - 357 x10(3)/mc L 05/22/2024 5:52 AM EDT [facility] Mean Platelet Volume 10.9 7.6 - 12.9 fL 05/22/2024 5:52 AM [facility] RDW Standard Deviation 54.6(H) 36.0 - 45.0 fL 05/22/2024 5:52 AM [facility] RDW coefficient of variation 16.3(H) 11.4 - 13.8 % 05/22/2024 5:52 AM [facility] NRBC% auto 0.0 % 05/22/2024 5:52 AM [facility] NRBC Absolute 0.00 0.00 - 0.00 x10(3)/mc L 05/22/2024 5:52 AM [facility] Neutrophil % 83.2 % 05/22/2024 5:52 AM [facility] Neutrophil Absolute 12.22(H) 1.70 - 6.10 x10(3)/mc L 05/22/2024 5:52 AM [facility] Lymph % 4.4 % 05/22/2024 5:52 AM [facility] Lymph Absolute 0.65(L) 0.90 - 3.20 x10(3)/mc L 05/22/2024 5:52 AM [facility] Monocyte % 9.7 % 05/22/2024 5:52 AM [facility] Monocyte Absolute 1.43(H) 0.30 - 0.90 x10(3)/mc L 05/22/2024 5:52 AM [facility] Eos % 1.9 % 05/22/2024 5:52 AM [facility] Eos Absolute 0.28 0.00 - 0.40 x10(3)/mc L 05/22/2024 5:52 AM [facility] Basophil % 0.2 % 05/22/2024 5:52 AM [facility] Baso Absolute 0.03 0.00 - 0.10 x10(3)/mc L 05/22/2024 5:52 AM [facility] Immature Gran % 0.6 % 5:52 AM [facility] Immature Gran Absolute 0.09(H) 0.00 - 0.04 x10(3)/mc L 05/22/2024 5:52 AM EDT [facility] Blood VENOUS BLOOD SPECIMEN / Unknown IP Care Team Draw / Unknown 05/22/2024 5:18 AM EDT 05/22/2024 5:45 AM EDT Mary De La Fuente MD HEMATOLOGY ORDERAB LES Performing Organization Address [facility] Co de Phone Number [facility] [place] [address] * POC, GLUCOSE (05/22/2024 3:50 AM EDT) Glucometer, POC 140 65 - 199 mg/dL 05/22/2024 3:50 AM EDT [facility] Comment:Supplemental ranges: <140 mg/dL before meals <180 mg/dL all other times of the day. Blood CAPILLARY BLOOD / Unknown 05/22/2024 3:50 AM EDT 05/22/2024 3:50 AM EDT Saba Spears MD POINT OF CARE TEST ORDERABLES Performing Organization Address [facility] de Phone Number [facility] [place] [address] * Scan Doc: Lab (05/22/2024 12:00 AM EDT) Narrative 05/22/2024 12:00 AM EDT Ordered by an unspecified provider. Scanning Provider MEDIA MGR SCAN EXT O RDR/RSLT * POC, GLUCOSE (05/21/2024 11:28 PM EDT) Glucometer, POC 174 65 - 199 mg/dL 05/21/2024 11:28 PM EDT [facility] Comment:Supplemental ranges: <140 mg/dL before meals <180 mg/dL all other times of the day. Blood CAPILLARY BLOOD / Unknown 05/21/2024 11:28 PM EDT 05/21/2024 11:28 PM EDT Saba Spears MD POINT OF CARE TEST ORDERABLES Performing Organization Address [facility] Co de Phone Number [facility] [place] [address] * POC, GLUCOSE (05/21/2024 7:49 PM EDT) Glucometer, POC 161 65 - 199 mg/dL 05/21/2024 7:49 PM EDT [facility] Comment:Supplemental ranges: <140 mg/dL before meals <180 mg/dL all other times of the day. Blood CAPILLARY BLOOD / Unknown 05/21/2024 7:49 PM EDT 05/21/2024 7:49 PM EDT Saba Spears MD POINT OF CARE TEST ORDERABLES Performing Organization Address [facility] Co de Phone Number [facility] [place] [address] * POC, GLUCOSE (05/21/2024 5:18 PM EDT) Glucometer, POC 152 65 - 199 mg/dL 05/21/2024 5:18 PM EDT [facility] Comment:Supplemental ranges: <140 mg/dL before meals <180 mg/dL all other times of the day. Blood CAPILLARY BLOOD / Unknown 05/21/2024 5:18 PM EDT 05/21/2024 5:18 PM EDT Saba Spears MD POINT OF CARE TEST ORDERABLES Performing Organization Address City/[facility] Co de Phone Number [facility] [place] [address] * (ABNORMAL) Hemogram (05/21/2024 3:00 PM EDT) White Blood Cell 14.25(H) 4.00 - 9.50 x10(3)/mc L 05/21/2024 3:41 PM [facility] Red Blood Cell 2.61(L) 4.58 - 5.54 x10(6)/mc L 05/21/2024 3:41 PM [facility] Hemoglobin 7.8(L) 13.7 - 16.5 g/dL 05/21/2024 3:41 PM [facility] Hematocrit 24.5(L) 40.5 - 48.5 % 05/21/2024 3:41 PM [facility] Mean Cell Volume 93.9(H) 82.9 - 93.1 fL 05/21/2024 3:41 PM [facility] Mean Cell Hemoglobin 29.9 27.5 - 32.1 pg 05/21/2024 3:41 PM [facility] Mean Cell Hemoglobin Concentration 31.8(L) 32.0 - 35.7 g/dL 05/21/2024 3:41 PM [facility] Platelet 456(H) 145 - 357 x10(3)/mc L 05/21/2024 3:41 PM [facility] Mean Platelet Volume 11.1 7.6 - 12.9 fL 05/21/2024 3:41 PM [facility] RDW Standard Deviation 55.2(H) 36.0 - 45.0 fL 05/21/2024 3:41 PM [facility] RDW coefficient of variation 16.1(H) 11.4 - 13.8 % 05/21/2024 3:41 PM [facility] NRBC% auto 0.0 % 05/21/2024 3:41 PM [facility] NRBC Absolute 0.00 0.00 - 0.00 x10(3)/mc L 05/21/2024 3:41 PM [facility] Blood VENOUS BLOOD SPECIMEN / Unknown IP Care Team Draw / Unknown 05/21/2024 3:00 PM EDT 05/21/2024 3:36 PM EDT Saba Spears MD HEMATOLOGY ORDERABL ES Performing Organization Address City/[facility]/ZIP Co de Phone Number [facility] [place] [address] * POC, GLUCOSE (05/21/2024 12:39 PM EDT) Glucometer, POC 144 65 - 199 mg/dL 05/21/2024 12:39 PM EDT [facility] Comment:Supplemental ranges: <140 mg/dL before meals <180 mg/dL all other times of the day. Blood CAPILLARY BLOOD / Unknown 05/21/2024 12:39 PM EDT 05/21/2024 12:39 PM EDT Saba Spears MD POINT OF CARE TEST ORDERABLES Performing Organization Address [facility] Co de Phone Number [facility] [place] [address] * IR Tunneled Central Venous Access Non-Dialysis [...] guidance and a 4Fr sheath placed. ??[address] injection compatible single lumen catheter was [...] Nurse. ? Saba Spears MD [facility] * POC, GLUCOSE (05/21/2024 9:12 AM EDT) [facility] Glucometer, POC 144 65 - 199 mg/dL 05/21/2024 9:12 AM EDT [facility] Comment:Supplemental ranges: <140 mg/dL before meals <180 mg/dL all other times of the day. Blood CAPILLARY BLOOD / Unknown 05/21/2024 9:12 AM EDT 05/21/2024 9:12 AM EDT Saba Spears MD POINT OF CARE TEST ORDERABLES [facility] [place] [address] * POC, GLUCOSE (05/21/2024 8:32 AM EDT) Glucometer, POC 135 65 - 199 mg/dL 05/21/2024 8:32 AM EDT [facility] Comment:Supplemental ranges: <140 mg/dL before meals <180 mg/dL all other times of the day. Blood CAPILLARY BLOOD / Unknown 05/21/2024 8:32 AM EDT 05/21/2024 8:32 AM EDT Saba Spears MD POINT OF CARE TEST ORDERABLES [facility] [place] [address] * (ABNORMAL) Hemogram (05/21/2024 8:27 AM EDT) White Blood Cell 15.77(H) 4.00 - 9.50 x10(3)/mc L 05/21/2024 8:54 AM EDT [facility] Red Blood Cell 2.47(L) 4.58 - 5.54 x10(6)/mc L 05/21/2024 8:54 AM EDT [facility] Hemoglobin 7.5(L) 13.7 - 16.5 g/dL 05/21/2024 8:54 AM EDT [facility] Hematocrit 23.0(L) 40.5 - 48.5 % 05/21/2024 8:54 AM EDT [facility] Mean Cell Volume 93.1 82.9 - 93.1 fL 05/21/2024 8:54 AM EDT [facility] Mean Cell Hemoglobin 30.4 27.5 - 32.1 pg 05/21/2024 8:54 AM EDT [facility] Mean Cell Hemoglobin Concentration 32.6 32.0 - 35.7 g/dL 05/21/2024 8:54 AM EDT [facility] Platelet 398(H) 145 - 357 x10(3)/mc L 05/21/2024 8:54 AM EDT [facility] Mean Platelet Volume 10.8 7.6 - 12.9 fL 05/21/2024 8:54 AM EDT [facility] RDW Standard Deviation 54.6(H) 36.0 - 45.0 fL 05/21/2024 8:54 AM EDT [facility] RDW coefficient of variation 16.1(H) 11.4 - 13.8 % 05/21/2024 8:54 AM EDT [facility] NRBC% auto 0.0 % 05/21/2024 8:54 AM EDT [facility] NRBC Absolute 0.00 0.00 - 0.00 x10(3)/mc L 05/21/2024 8:54 AM EDT [facility] Blood VENOUS BLOOD SPECIMEN / Unknown IP Care Team Draw / Unknown 05/21/2024 8:27 AM EDT 05/21/2024 8:42 AM EDT Saba Spears MD HEMATOLOGY ORDERABL ES Performing Organization Address City/[facility]/ZIP Co de Phone Number [facility] [place] [address] * (ABNORMAL) CRP, acute inflammation (05/21/2024 4:58 AM EDT) C-Reactive Protein 14.1(H) <=4.9 mg/L 05/21/2024 10:05 AM EDT [facility] Blood VENOUS BLOOD SPECIMEN / Unknown IP Care Team Draw / Unknown 05/21/2024 4:58 AM EDT 05/21/2024 5:17 AM EDT Saba Spears MD CHEMISTRY ORDERABLE S [facility] [place] [address] * Magnesium (05/21/2024 4:58 AM EDT) Magnesium 0.99 0.69 - 1.07 mMol/L 05/21/2024 5:51 AM EDT [facility] Blood VENOUS BLOOD SPECIMEN / Unknown IP Care Team Draw / Unknown 05/21/2024 4:58 AM EDT 05/21/2024 5:17 AM EDT Mary De La Fuente MD CHEMISTRY ORDERABL ES Performing Organization Address City/[facility]/ZIP Co de Phone Number [facility] [place] [address] * (ABNORMAL) Phosphorus (05/21/2024 4:58 AM EDT) Phosphorus 6.2(H) 2.5 - 4.5 mg/dL 05/21/2024 5:51 AM EDT [facility] Blood VENOUS BLOOD SPECIMEN / Unknown IP Care Team Draw / Unknown 05/21/2024 4:58 AM EDT 05/21/2024 5:17 AM EDT Mary De La Fuente MD CHEMISTRY ORDERABL ES Performing Organization Address City/[facility]/ZIP Co de Phone Number [facility] [place] [address] * (ABNORMAL) Basic Metabolic Panel (05/21/2024 4:58 AM EDT) Glucose 151 65 - 199 mg/dL 05/21/2024 5:51 AM EDT [facility] Comment:Glucose Concentratio n >=200 mg/dL plus symptoms is consistent with Diabetes Mellitus. Blood Urea Nitrogen 110(H) 10 - 20 mg/dL 05/21/2024 5:51 AM EDT [facility] Creatinine 3.04(H) 0.80 - 1.50 mg/dL 05/21/2024 5:51 AM EDT [facility] Sodium 138 135 - 145 mMol/L 05/21/2024 5:51 AM EDT [facility] Potassium 5.1(H) 3.5 - 5.0 mMol/L 05/21/2024 5:51 AM EDT [facility] Chloride 111(H) 98 - 107 mMol/L 05/21/2024 5:[facility] Carbon Dioxide 18(L) 22 - 31 mMol/L 05/21/2024 5:51 AM EDT [facility] Anion Gap 9 5 - 15 mMol/L 05/21/2024 5:51 AM EDT [facility] Calcium 9.4 8.5 - 10.5 mg/dL 05/21/2024 5:51 AM EDT [facility] Est Glomerular Filtration Rate - Male 21 mL/min/1. 73 m?? 05/21/2024 5:51 AM [facility] Comment: This patient's estimated GFR [...] Fasting Status No 05/21/2024 5:51 AM T [facility] Blood VENOUS BLOOD SPECIMEN / Unknown IP Care Team Draw / Unknown 05/21/2024 4:58 AM EDT 05/21/2024 5:17 AM EDT Mary De La Fuente MD CHEMISTRY ORDERABL ES [facility] [address] * (ABNORMAL) CBC (with Diff) (05/21/2024 4:58 AM EDT) White Blood Cell 14.49(H) 4.00 - 9.50 x10(3)/mc L 05/21/2024 5:28 AM EDT [facility] Red Blood Cell 2.54(L) 4.58 - 5.54 x10(6)/mc L 05/21/2024 5:28 AM [facility] Hemoglobin 7.5(L) 13.7 - 16.5 g/dL 05/21/2024 5:28 AM [facility] Hematocrit 23.6(L) 40.5 - 48.5 % 05/21/2024 5:28 AM [facility] Mean Cell Volume 92.9 82.9 - 93.1 fL 05/21/2024 5:28 AM [facility] Mean Cell Hemoglobin 29.5 27.5 - 32.1 pg 05/21/2024 5:28 AM [facility] Mean Cell Hemoglobin Concentration 31.8(L) 32.0 - 35.7 g/dL 05/21/2024 5:28 AM [facility] Platelet 388(H) 145 - 357 x10(3)/mc L 05/21/2024 5:28 AM [facility] Mean Platelet Volume 10.8 7.6 - 12.9 fL 05/21/2024 5:28 AM [facility] RDW Standard Deviation 53.6(H) 36.0 - 45.0 fL 05/21/2024 5:28 AM [facility] RDW coefficient of variation 16.0(H) 11.4 - 13.8 % 05/21/2024 5:28 AM [facility] NRBC% auto 0.0 % 05/21/2024 5:28 AM [facility] NRBC Absolute 0.00 0.00 - 0.00 x10(3)/mc L 05/21/2024 5:28 AM [facility] Neutrophil % 81.6 % 05/21/2024 5:28 AM [facility] Neutrophil Absolute 11.83(H) 1.70 - 6.10 x10(3)/mc L 05/21/2024 5:28 AM EDT [facility] Lymph % 6.1 % 05/21/2024 5:28 AM EDT [facility] Lymph Absolute 0.89(L) 0.90 - 3.20 x10(3)/mc L 05/21/2024 5:28 AM EDT [facility] Monocyte % 9.4 % 05/21/2024 5:28 AM EDT [facility] Monocyte Absolute 1.36(H) 0.30 - 0.90 x10(3)/mc L 05/21/2024 5:28 AM EDT [facility] Eos % 2.1 % 05/21/2024 5:28 AM EDT [facility] Eos Absolute 0.30 0.00 - 0.40 x10(3)/mc L 05/21/2024 5:28 AM EDT [facility] Basophil % 0.2 % 05/21/2024 5:28 AM EDT [facility] Baso Absolute 0.03 0.00 - 0.10 x10(3)/mc L 05/21/2024 5:28 AM EDT [facility] Immature Gran % 0.6 % 5:28 AM EDT [facility] Immature Gran Absolute 0.08(H) 0.00 - 0.04 x10(3)/mc L 05/21/2024 5:28 AM EDT [facility] Blood VENOUS BLOOD SPECIMEN / Unknown IP Care Team Draw / Unknown 05/21/2024 4:58 AM EDT 05/21/2024 5:17 AM EDT Mary De La Fuente MD HEMATOLOGY ORDERAB LES [facility] [place] [address] * POC, GLUCOSE (05/21/2024 3:45 AM EDT) [facility] Glucometer, POC 155 65 - 199 mg/dL 05/21/2024 3:45 AM EDT [facility] Comment:Supplemental ranges: <140 mg/dL before meals <180 mg/dL all other times of the day. Blood CAPILLARY BLOOD / Unknown 05/21/2024 3:45 AM EDT 05/21/2024 3:46 AM EDT Saba Spears MD POINT OF CARE TEST ORDERABLES Performing Organization Address City/[facility]/ZIP Co de Phone Number [facility] [place] [address] * POC, GLUCOSE (05/20/2024 11:44 PM EDT) Glucometer, POC 132 65 - 199 mg/dL 05/20/2024 11:44 PM EDT [facility] Comment:Supplemental ranges: <140 mg/dL before meals <180 mg/dL all other times of the day. Blood CAPILLARY BLOOD / Unknown 05/20/2024 11:44 PM EDT 05/20/2024 11:44 PM EDT Saba Spears MD POINT OF CARE TEST ORDERABLES Performing Organization Address [facility] Co de Phone Number [facility] [place] [address] * POC, GLUCOSE (05/20/2024 7:24 PM EDT) Glucometer, POC 166 65 - 199 mg/dL 05/20/2024 7:24 PM EDT [facility] Comment:Supplemental ranges: <140 mg/dL before meals <180 mg/dL all other times of the day. Blood CAPILLARY BLOOD / Unknown 05/20/2024 7:24 PM EDT 05/20/2024 7:25 PM EDT Saba Spears MD POINT OF CARE TEST ORDERABLES Performing Organization Address City/[facility]/ZIP Co de Phone Number [facility] [place] [address] * POC, GLUCOSE (05/20/2024 4:24 PM EDT) Glucometer, POC 170 65 - 199 mg/dL 05/20/2024 4:24 PM EDT [facility] Comment:Supplemental ranges: <140 mg/dL before meals <180 mg/dL all other times of the day. Blood CAPILLARY BLOOD / Unknown 05/20/2024 4:24 PM EDT 05/20/2024 4:24 PM EDT Saba Spears MD POINT OF CARE TEST ORDERABLES [facility] [place] [address] * (ABNORMAL) Hemogram (05/20/2024 12:35 PM EDT) White Blood Cell 14.66(H) 4.00 - 9.50 x10(3)/mc L 05/20/2024 12:50 PM EDT [facility] Red Blood Cell 2.81(L) 4.58 - 5.54 x10(6)/mc L 05/20/2024 12:50 PM EDT [facility] Hemoglobin 8.4(L) 13.7 - 16.5 g/dL 05/20/2024 12:50 PM EDT [facility] Hematocrit 26.2(L) 40.5 - 48.5 % 05/20/2024 12:50 PM EDT [facility] Mean Cell Volume 93.2(H) 82.9 - 93.1 fL 05/20/2024 12:50 PM EDT [facility] Mean Cell Hemoglobin 29.9 27.5 - 32.1 pg 05/20/2024 12:50 PM EDT [facility] Mean Cell Hemoglobin Concentration 32.1 32.0 - 35.7 g/dL 05/20/2024 12:50 PM EDT [facility] Platelet 416(H) 145 - 357 x10(3)/mc L 05/20/2024 12:50 PM EDT [facility] Mean Platelet Volume 10.4 7.6 - 12.9 fL 05/20/2024 12:50 PM EDT [facility] RDW Standard Deviation 52.9(H) 36.0 - 45.0 fL 05/20/2024 12:50 PM EDT [facility] RDW coefficient of variation 15.6(H) 11.4 - 13.8 % 05/20/2024 12:50 PM EDT [facility] NRBC% auto 0.0 % 05/20/2024 12:50 PM EDT [facility] NRBC Absolute 0.00 0.00 - 0.00 x10(3)/mc L 05/20/2024 12:50 PM EDT [facility] Blood VENOUS BLOOD SPECIMEN / Unknown IP Care Team Draw / Unknown 05/20/2024 12:35 PM EDT 05/20/2024 12:43 PM EDT Saba Spears MD HEMATOLOGY ORDERABL ES Performing Organization Address City/[facility]/ZIP Co de Phone Number [facility] [place] [address] * POC, GLUCOSE (05/20/2024 11:52 AM EDT) [facility] Glucometer, POC 176 65 - 199 mg/dL 05/20/2024 11:52 AM EDT [facility] Comment:Supplemental ranges: <140 mg/dL before meals <180 mg/dL all other times of the day. Blood CAPILLARY BLOOD / Unknown 05/20/2024 11:52 AM EDT 05/20/2024 11:52 AM EDT Saba Spears MD POINT OF CARE TEST ORDERABLES [facility] [place] [address] * US Retroperitoneal Complete (05/20/2024 10:36 AM EDT) WORKSTATION ID [id number] RAD Anatomical Region Laterality Modality Abdomen Ultrasound [...] who have questions, please contact the health gericare aide that requested your imaging first. ?Teofilo Ruiz, Staff Physician Electronically Signed Final Report ?? 05/20/2024 11:36 am Narrative 05/20/2024 11:37 AM EDT Renal ? (Signed Final 05/20/2024 11:36 am) PATIENT INFO: ID #: ? [id number] ?: ??[birth year] (69 yrs)(M) Name: ? JOSSY Spivey KNIGHTS ? Visit Date: 05/20/2024 10:34 am PERFORMED BY: Attending: ?Joseph SOTOMAYOR, Teofilo Flores Resident: ? Kuldeep SOTOMAYOR, Trinidad Wright Performed By: ? Lulu Shin RDMS Referred By: ?SABA Goodson TORY Location: ? [place] SERVICE(S) PROVIDED: URETRO - Retroperitoneal Complete - [id number] ? [id number] INDICATIONS: CKD, increase BUN TECHNIQUE/SCAN QUALITY: Scan [...] 05/20/2024 11:36 am) PATIENT INFO: ID #: [id number] : [birth year] (69 yrs)(M) Name: JOSSY SHANKS Visit Date: 05/20/2024 10:34 am PERFORMED BY: Attending: Teofilo Ruiz MD Resident: Trinidad Light MD Performed By: Lulu Shin RDMS Referred By: SABA SPEARS Location: [place] SERVICE(S) PROVIDED: URETRO - Retroperitoneal Complete - [id number] INDICATIONS: CKD, increase BUN TECHNIQUE/SCAN QUALITY: Scan [...] who have questions, please contact the health gericare aide that requested your imaging first. Teofilo Ruiz, Staff Physician Electronically Signed Final Report 05/20/2024 11:36 am Saba Spears MD IMG US GEN ORDERABL ES * POC, GLUCOSE (05/20/2024 8:03 AM EDT) [facility] Glucometer, POC 180 65 - 199 mg/dL 05/20/2024 8:03 AM EDT [facility] Comment:Supplemental ranges: <140 mg/dL before meals <180 mg/dL all other times of the day. Blood CAPILLARY BLOOD / Unknown 05/20/2024 8:03 AM EDT 05/20/2024 8:03 AM EDT Saba Spears MD POINT OF CARE TEST ORDERABLES Performing Organization Address City/[facility]/ZIP Co de Phone Number [facility] [place] [address] * Magnesium (05/20/2024 4:27 AM EDT) Magnesium 0.99 0.69 - 1.07 mMol/L 05/20/2024 5:27 AM EDT [facility] Blood VENOUS BLOOD SPECIMEN / Unknown IP Care Team Draw / Unknown 05/20/2024 4:27 AM EDT 05/20/2024 4:52 AM EDT Mary De La Fuente MD CHEMISTRY ORDERABL ES Performing Organization Address [facility] Co de Phone Number [facility] [place] [address] * (ABNORMAL) Phosphorus (05/20/2024 4:27 AM EDT) Phosphorus 5.1(H) 2.5 - 4.5 mg/dL 05/20/2024 5:27 AM EDT [facility] Blood VENOUS BLOOD SPECIMEN / Unknown IP Care Team Draw / Unknown 05/20/2024 4:27 AM EDT 05/20/2024 4:52 AM EDT Mary De La Fuente MD CHEMISTRY ORDERABL ES Performing Organization Address [facility] Co de Phone Number [facility] [place] [address] * (ABNORMAL) Basic Metabolic Panel (non-fasting) (05/20/2024 4:27 AM EDT) Glucose 173 65 - 199 mg/dL 05/20/2024 6:27 AM [facility] Comment:Glucose Concentratio n >=200 mg/dL plus symptoms is consistent with Diabetes Mellitus. Blood Urea Nitrogen 121(H) 10 - 20 mg/dL 05/20/2024 6:27 AM [facility] Creatinine 2.78(H) 0.80 - 1.50 mg/dL 05/20/2024 6:27 AM [facility] Sodium 138 135 - 145 mMol/L 05/20/2024 6:27 AM [facility] Potassium 5.4(H) 3.5 - 5.0 mMol/L 05/20/2024 6:27 AM [facility] Chloride 109(H) 98 - 107 mMol/L 05/20/2024 6:27 AM [facility] Carbon Dioxide 18(L) 22 - 31 mMol/L 05/20/2024 6:27 AM [facility] Anion Gap 11 5 - 15 mMol/L 05/20/2024 6:27 AM [facility] Calcium 9.4 8.5 - 10.5 mg/dL 05/20/2024 6:27 AM [facility] Est Glomerular Filtration Rate - Male 24 mL/min/1. 73 m?? 05/20/2024 6:27 AM [facility] Comment: This patient's estimated GFR [...] Foundation Fasting Status No 05/20/2024 6:27 AM [facility] Blood VENOUS BLOOD SPECIMEN / Unknown IP Care Team Draw / Unknown 05/20/2024 4:27 AM EDT 05/20/2024 4:52 AM EDT Mary De La Fuente MD CHEMISTRY ORDERABL ES [facility] [place] [address] * (ABNORMAL) CBC (with Diff) (05/20/2024 4:27 AM EDT) White Blood Cell 15.20(H) 4.00 - 9.50 x10(3)/mc L 05/20/2024 5:32 AM EDT [facility] Red Blood Cell 2.69(L) 4.58 - 5.54 x10(6)/mc L 05/20/2024 5:32 AM EDT [facility] Hemoglobin 7.9(L) 13.7 - 16.5 g/dL 05/20/2024 5:32 AM EDT [facility] Hematocrit 25.5(L) 40.5 - 48.5 % 05/20/2024 5:32 AM EDT [facility] Mean Cell Volume 94.8(H) 82.9 - 93.1 fL 05/20/2024 5:32 AM [facility] Mean Cell Hemoglobin 29.4 27.5 - 32.1 pg 05/20/2024 5:32 AM EDT [facility] Mean Cell Hemoglobin Concentration 31.0(L) 32.0 - 35.7 g/dL 05/20/2024 5:32 AM EDT [facility] Platelet 403(H) 145 - 357 x10(3)/mc L 05/20/2024 5:32 AM EDT [facility] Mean Platelet Volume 10.7 7.6 - 12.9 fL 05/20/2024 5:32 AM EDT [facility] RDW Standard Deviation 54.7(H) 36.0 - 45.0 fL 05/20/2024 5:32 AM EDT [facility] RDW coefficient of variation 15.8(H) 11.4 - 13.8 % 05/20/2024 5:32 AM [facility] NRBC% auto 0.0 % 05/20/2024 5:32 AM [facility] NRBC Absolute 0.00 0.00 - 0.00 x10(3)/mc L 05/20/2024 5:32 AM [facility] Neutrophil % 82.1 % 05/20/2024 5:32 AM [facility] Neutrophil Absolute 12.49(H) 1.70 - 6.10 x10(3)/mc L 05/20/2024 5:32 AM [facility] Lymph % 6.3 % 05/20/2024 5:32 AM [facility] Lymph Absolute 0.96 0.90 - 3.20 x10(3)/mc L 05/20/2024 5:32 AM [facility] Monocyte % 8.7 % 05/20/2024 5:32 AM [facility] Monocyte Absolute 1.32(H) 0.30 - 0.90 x10(3)/mc L 05/20/2024 5:32 AM [facility] Eos % 2.0 % 05/20/2024 5:32 AM [facility] Eos Absolute 0.30 0.00 - 0.40 x10(3)/mc L 05/20/2024 5:32 AM [facility] Basophil % 0.3 % 05/20/2024 5:32 AM [facility] Baso Absolute 0.04 0.00 - 0.10 x10(3)/mc L 05/20/2024 5:32 AM [facility] Immature Gran % 0.6 % 5:32 AM [facility] Immature Gran Absolute 0.09(H) 0.00 - 0.04 x10(3)/mc L 05/20/2024 5:32 AM EDT [facility] Blood VENOUS BLOOD SPECIMEN / Unknown IP Care Team Draw / Unknown 05/20/2024 4:27 AM EDT 05/20/2024 4:52 AM EDT Mary De La Fuente MD HEMATOLOGY ORDERAB LES [facility] [place] [address] * POC, GLUCOSE (05/20/2024 3:11 AM EDT) Glucometer, POC 163 65 - 199 mg/dL 05/20/2024 3:12 AM EDT [facility] Comment:Supplemental ranges: <140 mg/dL before meals <180 mg/dL all other times of the day. Blood CAPILLARY BLOOD / Unknown 05/20/2024 3:11 AM EDT 05/20/2024 3:12 AM EDT Saba Spears MD POINT OF CARE TEST ORDERABLES Performing Organization Address City/[facility]/ZIP Co de Phone Number [facility] [place] [address] * POC, GLUCOSE (05/19/2024 11:07 PM EDT) Glucometer, POC 136 65 - 199 mg/dL 05/19/2024 11:07 PM EDT [facility] Comment:Supplemental ranges: <140 mg/dL before meals <180 mg/dL all other times of the day. Blood CAPILLARY BLOOD / Unknown 05/19/2024 11:07 PM EDT 05/19/2024 11:07 PM EDT Saba Spears MD POINT OF CARE TEST ORDERABLES [facility] [place] [address] * POC, GLUCOSE (05/19/2024 8:20 PM EDT) Glucometer, POC 150 65 - 199 mg/dL 05/19/2024 8:20 PM EDT [facility] Comment:Supplemental ranges: <140 mg/dL before meals <180 mg/dL all other times of the day. Blood CAPILLARY BLOOD / Unknown 05/19/2024 8:20 PM EDT 05/19/2024 8:21 PM EDT Saba Spears MD POINT OF CARE TEST ORDERABLES [facility] [place] [address] * (ABNORMAL) Iron and TIBC (05/19/2024 5:09 PM EDT) [facility] Iron 58 45 - 160 mcg/dL 05/19/2024 6:56 PM EDT [facility] Unsaturated Iron Binding Capacity 143 110 - 370 mcg/dL 05/19/2024 6:56 PM EDT [facility] TIBC 201(L) 250 - 450 mcg/dL 05/19/2024 6:56 PM EDT [facility] Iron Saturation 29 20 - 50 % 6:56 PM EDT [facility] Blood VENOUS BLOOD SPECIMEN / Unknown IP Care Team Draw / Unknown 05/19/2024 5:09 PM EDT 05/19/2024 5:43 PM EDT Saba Spears MD CHEMISTRY ORDERABLE S [facility] [place] [address] * PTH (05/19/2024 5:09 PM EDT) [facility] Parathyroid Hormone 27 15 - 65 pg/mL 05/19/2024 6:15 PM EDT [facility] Blood VENOUS BLOOD SPECIMEN / Unknown IP Care Team Draw / Unknown 05/19/2024 5:09 PM EDT 05/19/2024 5:43 PM EDT Saba Spears MD CHEMISTRY ORDERABLE S [facility] [place] [address] * Ferritin (05/19/2024 5:08 PM EDT) Ferritin 191 31 - 409 ng/ml 05/19/2024 6:24 PM EDT [facility] Blood VENOUS BLOOD SPECIMEN / Unknown IP Care Team Draw / Unknown 05/19/2024 5:08 PM EDT 05/19/2024 5:43 PM EDT Saba Spears MD CHEMISTRY ORDERABLE S Performing Organization Address City/[facility]/ZIP Co de Phone Number [facility] [place] [address] * POC, GLUCOSE (05/19/2024 3:59 PM EDT) Glucometer, POC 185 65 - 199 mg/dL 05/19/2024 3:59 PM EDT [facility] Comment:Supplemental ranges: <140 mg/dL before meals <180 mg/dL all other times of the day. Blood CAPILLARY BLOOD / Unknown 05/19/2024 3:59 PM EDT 05/19/2024 3:59 PM EDT Saba Spears MD POINT OF CARE TEST ORDERABLES [facility] [place] [address] * POC, GLUCOSE (05/19/2024 12:32 PM EDT) Glucometer, POC 143 65 - 199 mg/dL 05/19/2024 12:32 PM EDT [facility] Comment:Supplemental ranges: <140 mg/dL before meals <180 mg/dL all other times of the day. Blood CAPILLARY BLOOD / Unknown 05/19/2024 12:32 PM EDT 05/19/2024 12:32 PM EDT Saba Spears MD POINT OF CARE TEST ORDERABLES Performing Organization Address City/[facility]/ZIP Co de Phone Number [facility] [place] [address] * POC, GLUCOSE (05/19/2024 8:12 AM EDT) Glucometer, POC 181 65 - 199 mg/dL 05/19/2024 8:13 AM EDT [facility] Comment:Supplemental ranges: <140 mg/dL before meals <180 mg/dL all other times of the day. Blood CAPILLARY BLOOD / Unknown 05/19/2024 8:12 AM EDT 05/19/2024 8:13 AM EDT Saba Spears MD POINT OF CARE TEST ORDERABLES Performing Organization Address [facility] Co de Phone Number [facility] [place] [address] * (ABNORMAL) Magnesium (05/19/2024 5:11 AM EDT) Magnesium 1.08(H) 0.69 - 1.07 mMol/L 05/19/2024 5:58 AM EDT [facility] Blood VENOUS BLOOD SPECIMEN / Unknown IP Care Team Draw / Unknown 05/19/2024 5:11 AM EDT 05/19/2024 5:30 AM EDT Mary De La Fuente MD CHEMISTRY ORDERABL ES Performing Organization Address City/[facility]/ZIP Co de Phone Number [facility] [place] [address] * (ABNORMAL) Phosphorus (05/19/2024 5:11 AM EDT) Phosphorus 5.1(H) 2.5 - 4.5 mg/dL 05/19/2024 5:58 AM EDT [facility] Blood VENOUS BLOOD SPECIMEN / Unknown IP Care Team Draw / Unknown 05/19/2024 5:11 AM EDT 05/19/2024 5:30 AM EDT Mary De La Fuente MD CHEMISTRY ORDERABL ES [facility] [place] [address] * (ABNORMAL) Basic Metabolic Panel (non-fasting) (05/19/2024 5:11 AM EDT) Glucose 162 65 - 199 mg/dL 05/19/2024 6:53 AM EDT [facility] Comment:Glucose Concentratio n >=200 mg/dL plus symptoms is consistent with Diabetes Mellitus. Blood Urea Nitrogen 118(H) 10 - 20 mg/dL 05/19/2024 6:53 AM [facility] Creatinine 2.75(H) 0.80 - 1.50 mg/dL 05/19/2024 6:53 AM [facility] Sodium 136 135 - 145 mMol/L 05/19/2024 6:53 AM [facility] Potassium 5.2(H) 3.5 - 5.0 mMol/L 05/19/2024 6:53 AM [facility] Chloride 108(H) 98 - 107 mMol/L 05/19/2024 6:53 AM [facility] Carbon Dioxide 18(L) 22 - 31 mMol/L 05/19/2024 6:53 AM [facility] Anion Gap 10 5 - 15 mMol/L 05/19/2024 6:53 AM [facility] Calcium 9.3 8.5 - 10.5 mg/dL 05/19/2024 6:53 AM [facility] Est Glomerular Filtration Rate - Male 24 mL/min/1. 73 m?? 05/19/2024 6:53 AM [facility] Comment: This patient's estimated GFR [...] Fasting Status No 05/19/2024 6:53 AM EDT [facility] Blood VENOUS BLOOD SPECIMEN / Unknown IP Care Team Draw / Unknown 05/19/2024 5:11 AM EDT 05/19/2024 5:30 AM EDT Mary De La Fuente MD CHEMISTRY ORDERABL ES [facility] [place] [address] * (ABNORMAL) CBC (with Diff) (05/19/2024 5:11 AM EDT) White Blood Cell 12.77(H) 4.00 - 9.50 x10(3)/mc L 05/19/2024 5:37 AM [facility] Red Blood Cell 3.11(L) 4.58 - 5.54 x10(6)/mc L 05/19/2024 5:37 AM [facility] Hemoglobin 9.3(L) 13.7 - 16.5 g/dL 05/19/2024 5:37 AM [facility] Hematocrit 28.9(L) 40.5 - 48.5 % 05/19/2024 5:37 [facility] Mean Cell Volume 92.9 82.9 - 93.1 fL 05/19/2024 5:37 AM [facility] Mean Cell Hemoglobin 29.9 27.5 - 32.1 pg 05/19/2024 5:37 AM [facility] Mean Cell Hemoglobin Concentration 32.2 32.0 - 35.7 g/dL 05/19/2024 5:37 AM [facility] Platelet 379(H) 145 - 357 x10(3)/mc L 05/19/2024 5:37 AM [facility] Mean Platelet Volume 10.2 7.6 - 12.9 fL 05/19/2024 5:37 AM [facility] RDW Standard Deviation 53.1(H) 36.0 - 45.0 fL 05/19/2024 5:37 AM [facility] RDW coefficient of variation 15.8(H) 11.4 - 13.8 % 05/19/2024 5:37 AM [facility] NRBC% auto 0.0 % 05/19/2024 5:37 AM [facility] NRBC Absolute 0.00 0.00 - 0.00 x10(3)/mc L 05/19/2024 5:37 AM [facility] Neutrophil % 78.9 % 05/19/2024 5:37 AM [facility] Neutrophil Absolute 10.06(H) 1.70 - 6.10 x10(3)/mc L 05/19/2024 5:37 AM [facility] Lymph % 8.1 % 05/19/2024 5:37 AM [facility] Lymph Absolute 1.03 0.90 - 3.20 x10(3)/mc L 05/19/2024 5:37 AM [facility] Monocyte % 10.3 % 05/19/2024 5:37 AM [facility] Monocyte Absolute 1.32(H) 0.30 - 0.90 x10(3)/mc L 05/19/2024 5:37 AM [facility] Eos % 1.6 % 05/19/2024 5:37 AM [facility] Eos Absolute 0.21 0.00 - 0.40 x10(3)/mc L 05/19/2024 5:37 AM EDT [facility] Basophil % 0.2 % 05/19/2024 5:37 AM EDT [facility] Baso Absolute 0.03 0.00 - 0.10 x10(3)/mc L 05/19/2024 5:37 AM EDT [facility] Immature Gran % 0.9 % 5:37 AM EDT [facility] Immature Gran Absolute 0.12(H) 0.00 - 0.04 x10(3)/mc L 05/19/2024 5:37 AM EDT [facility] Blood VENOUS BLOOD SPECIMEN / Unknown IP Care Team Draw / Unknown 05/19/2024 5:11 AM EDT 05/19/2024 5:30 AM EDT Mary De La Fuente MD HEMATOLOGY ORDERAB LES Performing Organization Address City/[facility]/ZIP Co de Phone Number [facility] [place] [address] * POC, GLUCOSE (05/19/2024 3:27 AM EDT) Glucometer, POC 171 65 - 199 mg/dL 05/19/2024 3:28 AM EDT [facility] Comment:Supplemental ranges: <140 mg/dL before meals <180 mg/dL all other times of the day. Blood CAPILLARY BLOOD / Unknown 05/19/2024 3:27 AM EDT 05/19/2024 3:28 AM EDT Saba Spears MD POINT [place] [address] * POC, GLUCOSE (05/19/2024 12:02 AM EDT) Glucometer, POC 183 65 - 199 mg/dL 05/19/2024 12:02 AM EDT [facility] Comment:Supplemental ranges: <140 mg/dL before meals <180 mg/dL all other times of the day. Blood CAPILLARY BLOOD / Unknown 05/19/2024 12:02 AM EDT 05/19/2024 12:02 AM EDT Saba Spears MD POINT OF CARE TEST ORDERABLES Performing Organization Address City/[facility]/ZIP Co de Phone Number [facility] [place] [address] * (ABNORMAL) POC, GLUCOSE (05/18/2024 8:05 PM EDT) Glucometer, POC 207(H) 65 - 199 mg/dL 05/18/2024 8:06 PM EDT [facility] Comment:Supplemental ranges: <140 mg/dL before meals <180 mg/dL all other times of the day. Blood CAPILLARY BLOOD / Unknown 05/18/2024 8:05 PM EDT 05/18/2024 8:06 PM EDT Saba Spears MD POINT OF CARE TEST ORDERABLES Performing Organization Address City/[facility]/ZIP Co de Phone Number [facility] [place] [address] * POC, GLUCOSE (05/18/2024 6:14 PM EDT) Glucometer, POC 174 65 - 199 mg/dL 05/18/2024 6:15 PM EDT [facility] Comment:Supplemental ranges: <140 mg/dL before meals <180 mg/dL all other times of the day. Blood CAPILLARY BLOOD / Unknown 05/18/2024 6:14 PM EDT 05/18/2024 6:15 PM EDT Saba Spears MD POINT OF CARE TEST ORDERABLES Performing Organization Address City/[facility]/ZIP Co de Phone Number [facility] [place] [address] * (ABNORMAL) Basic Metabolic Panel (05/18/2024 5:04 PM EDT) Glucose 170 65 - 199 mg/dL 05/18/2024 6:14 PM [facility] Comment:Glucose Concentratio n >=200 mg/dL plus symptoms is consistent with Diabetes Mellitus. Blood Urea Nitrogen 116(H) 10 - 20 mg/dL 05/18/2024 6:14 PM [facility] Creatinine 2.64(H) 0.80 - 1.50 mg/dL 05/18/2024 6:14 PM [facility] Sodium 139 135 - 145 mMol/L 05/18/2024 6:14 PM [facility] Potassium 5.4(H) 3.5 - 5.0 mMol/L 05/18/2024 6:14 PM [facility] Chloride 110(H) 98 - 107 mMol/L 05/18/2024 6:14 PM [facility] Carbon Dioxide 17(L) 22 - 31 mMol/L 05/18/2024 6:14 PM [facility] Anion Gap 12 5 - 15 mMol/L 05/18/2024 6:14 PM [facility] Calcium 9.2 8.5 - 10.5 mg/dL 05/18/2024 6:14 PM [facility] Est Glomerular Filtration Rate - Male 25 mL/min/1. 73 m?? 05/18/2024 6:14 PM [facility] Comment: This patient's estimated GFR [...] Fasting Status No 05/18/2024 6:14 PM EDT [facility] Blood VENOUS BLOOD SPECIMEN / Unknown IP Care Team Draw / Unknown 05/18/2024 5:04 PM EDT 05/18/2024 5:11 PM EDT Saba Spears MD CHEMISTRY ORDERABLE S Performing Organization Address [facility]/ZIP Co de Phone Number [facility] [place] [address] * (ABNORMAL) POC, GLUCOSE (05/18/2024 11:45 AM EDT) Glucometer, POC 211(H) 65 - 199 mg/dL 05/18/2024 11:45 AM EDT [facility] Comment:Supplemental ranges: <140 mg/dL before meals <180 mg/dL all other times of the day. Blood CAPILLARY BLOOD / Unknown 05/18/2024 11:45 AM EDT 05/18/2024 11:45 AM EDT Saba Spears MD POINT OF CARE TEST ORDERABLES Performing Organization Address [facility] Co de Phone Number [facility] [place] [address] * C diff Screen (05/18/2024 11:31 AM EDT) C Diff Interp Negative Negative 05/18/2024 3:02 PM EDT [facility] Comment:Clostridioides diffi cile is not present in the specimen. If patient is having diarrhea suspected to be from an infectious cause, then Soap & Water Contact Precautions are still required. If patient is having diarrhea with no suspected infectious cause use standard precautions. C Diff PCR Negative Negative, Indeterminate 05/18/2024 3:02 PM EDT [facility] Stool STOOL SPECIMEN / Unknown Non Blood Collection / Unknown 05/18/2024 11:31 AM EDT 05/18/2024 12:09 PM EDT Saba Spears MD MICROBIOLOGY - GENE RAL ORDERABLES Performing Organization Address City/[facility]/ZIP Co de Phone Number [facility] [place] [address] * C Diff PCR (05/18/2024 11:31 AM EDT) Stool STOOL SPECIMEN / Unknown Non Blood Collection / Unknown 05/18/2024 11:31 AM EDT 05/18/2024 12:09 PM EDT Saba Spears MD MICROBIOLOGY - GENE RAL ORDERABLES Performing Organization Address City/[facility]/ZIP Co de Phone Number [facility] [place] [address] * Creatinine, urine, random (05/18/2024 8:57 AM EDT) Creatinine, Urine 44 mg/dL 05/18/2024 9:36 AM EDT [facility] Urine URINE SPECIMEN / Unknown Non Blood Collection / Unknown 05/18/2024 8:57 AM EDT 05/18/2024 9:07 AM EDT Saba Spears MD URINE ORDERABLES Performing Organization Address [facility] de Phone Number [facility] [place] [address] * Electrolytes, urine, random (05/18/2024 8:57 AM EDT) Sodium, Urine 50 mMol/L 05/18/2024 12:09 PM EDT [facility] Potassium, Urine 13 mMol/L 05/18/2024 12:09 PM EDT [facility] Chloride, Urine 35 mMol/L 05/18/2024 12:09 PM EDT [facility] Urine URINE SPECIMEN / Unknown Non Blood Collection / Unknown 05/18/2024 8:57 AM EDT 05/18/2024 9:07 AM EDT Saba Spears MD URINE ORDERABLES Performing Organization Address City/[facility]/ZIP Co de Phone Number [facility] [place] [address] * POC, GLUCOSE (05/18/2024 8:34 AM EDT) Glucometer, POC 182 65 - 199 mg/dL 05/18/2024 8:35 AM EDT [facility] Comment:Supplemental ranges: <140 mg/dL before meals <180 mg/dL all other times of the day. Blood CAPILLARY BLOOD / Unknown 05/18/2024 8:34 AM EDT 05/18/2024 8:35 AM EDT Saba Spears MD POINT OF CARE TEST ORDERABLES Performing Organization Address [facility] Co de Phone Number [facility] [place] [address] * POC, GLUCOSE (05/18/2024 4:10 AM EDT) Glucometer, POC 163 65 - 199 mg/dL 05/18/2024 4:10 AM EDT [facility] Comment:Supplemental ranges: <140 mg/dL before meals <180 mg/dL all other times of the day. Blood CAPILLARY BLOOD / Unknown 05/18/2024 4:10 AM EDT 05/18/2024 4:11 AM EDT Saba Spears MD POINT OF CARE TEST ORDERABLES Performing Organization Address City/[facility]/ZIP Co de Phone Number [facility] [place] [address] * (ABNORMAL) CBC (with Diff) (05/18/2024 4:01 AM EDT) White Blood Cell 9.84(H) 4.00 - 9.50 x10(3)/mc L 05/18/2024 4:19 AM EDT [facility] Red Blood Cell 3.24(L) 4.58 - 5.54 x10(6)/mc L 05/18/2024 4:19 AM [facility] Hemoglobin 9.6(L) 13.7 - 16.5 g/dL 05/18/2024 4:19 AM [facility] Hematocrit 31.4(L) 40.5 - 48.5 % 05/18/2024 4:19 AM [facility] Mean Cell Volume 96.9(H) 82.9 - 93.1 fL 05/18/2024 4:19 AM [facility] Mean Cell Hemoglobin 29.6 27.5 - 32.1 pg 05/18/2024 4:19 AM [facility] Mean Cell Hemoglobin Concentration 30.6(L) 32.0 - 35.7 g/dL 05/18/2024 4:19 AM [facility] Platelet 335 145 - 357 x10(3)/mc L 05/18/2024 4:19 AM [facility] Mean Platelet Volume 10.3 7.6 - 12.9 fL 05/18/2024 4:19 AM [facility] RDW Standard Deviation 56.4(H) 36.0 - 45.0 fL 05/18/2024 4:19 AM [facility] RDW coefficient of variation 15.7(H) 11.4 - 13.8 % 05/18/2024 4:19 AM [facility] NRBC% auto 0.2 % 05/18/2024 4:19 AM [facility] NRBC Absolute 0.02(H) 0.00 - 0.00 x10(3)/mc L 05/18/2024 4:19 AM [facility] Neutrophil % 76.5 % 05/18/2024 4:19 AM [facility] Neutrophil Absolute 7.52(H) 1.70 - 6.10 x10(3)/mc L 05/18/2024 4:19 AM [facility] Lymph % 8.0 % 05/18/2024 4:19 AM [facility] Lymph Absolute 0.79(L) 0.90 - 3.20 x10(3)/mc L 05/18/2024 4:19 AM EDT [facility] Monocyte % 12.5 % 05/18/2024 4:19 AM EDT [facility] Monocyte Absolute 1.23(H) 0.30 - 0.90 x10(3)/mc L 05/18/2024 4:19 AM EDT [facility] Eos % 1.9 % 05/18/2024 4:19 AM EDT [facility] Eos Absolute 0.19 0.00 - 0.40 x10(3)/mc L 05/18/2024 4:19 AM EDT [facility] Basophil % 0.2 % 05/18/2024 4:19 AM EDT [facility] Baso Absolute 0.02 0.00 - 0.10 x10(3)/mc L 05/18/2024 4:19 AM EDT [facility] Immature Gran % 0.9 % 4:19 AM EDT [facility] Immature Gran Absolute 0.09(H) 0.00 - 0.04 x10(3)/mc L 05/18/2024 4:19 AM EDT [facility] Blood VENOUS BLOOD SPECIMEN / Unknown IP Care Team Draw / Unknown 05/18/2024 4:01 AM EDT 05/18/2024 4:13 AM EDT Mary De La Fuente MD HEMATOLOGY ORDERAB LES [facility] [place] [address] * (ABNORMAL) Magnesium (05/18/2024 4:00 AM EDT) Magnesium 1.09(H) 0.69 - 1.07 mMol/L 05/18/2024 10:11 AM EDT [facility] Blood VENOUS BLOOD SPECIMEN / Unknown IP Care Team Draw / Unknown 05/18/2024 4:00 AM EDT 05/18/2024 4:13 AM EDT Mary De La Fuente MD CHEMISTRY ORDERABL ES Performing Organization Address [facility] Co de Phone Number [facility] [place] [address] * (ABNORMAL) Phosphorus (05/18/2024 4:00 AM EDT) Phosphorus 4.7(H) 2.5 - 4.5 mg/dL 05/18/2024 10:11 AM EDT [facility] Blood VENOUS BLOOD SPECIMEN / Unknown IP Care Team Draw / Unknown 05/18/2024 4:00 AM EDT 05/18/2024 4:13 AM EDT Mary De La Fuente MD CHEMISTRY ORDERABL ES Performing Organization Address [facility] Co de Phone Number [facility] [place] [address] * (ABNORMAL) Basic Metabolic Panel (non-fasting) (05/18/2024 4:00 AM EDT) Glucose 144 65 - 199 mg/dL 05/18/2024 10:11 AM EDT [facility] Comment:Glucose Concentratio n >=200 mg/dL plus symptoms is consistent with Diabetes Mellitus. Blood Urea Nitrogen 105(H) 10 - 20 mg/dL 05/18/2024 10:11 AM EDT [facility] Creatinine 2.69(H) 0.80 - 1.50 mg/dL 05/18/2024 10:11 AM EDT [facility] Sodium 134(L) 135 - 145 mMol/L 05/18/2024 10:11 AM EDT [facility] Potassium 5.6(H) 3.5 - 5.0 mMol/L 05/18/2024 10:11 AM EDT [facility] Chloride 107 98 - 107 mMol/L 05/18/2024 10:11 AM EDT [facility] Carbon Dioxide 11(L) 22 - 31 mMol/L 05/18/2024 10:11 AM EDT [facility] Anion Gap 16(H) 5 - 15 mMol/L 05/18/2024 10:11 AM EDT [facility] Calcium 8.8 8.5 - 10.5 mg/dL 05/18/2024 10:11 AM EDT [facility] Est Glomerular Filtration Rate - Male 25 mL/min/1. 73 m?? 05/18/2024 10:11 AM EDT [facility] Comment: This patient's estimated GFR [...] Fasting Status No 05/18/2024 10:11 AM EDT [facility] Blood VENOUS BLOOD SPECIMEN / Unknown IP Care Team Draw / Unknown 05/18/2024 4:00 AM EDT 05/18/2024 4:13 AM EDT Mary De La Fuente MD CHEMISTRY ORDERABL ES [facility] [place] [address] * (ABNORMAL) POC, GLUCOSE (05/17/2024 11:30 PM EDT) [facility] Glucometer, POC 232(H) 65 - 199 mg/dL 05/17/2024 11:30 PM EDT [facility] Comment:Supplemental ranges: <140 mg/dL before meals <180 mg/dL all other times of the day. Blood CAPILLARY BLOOD / Unknown 05/17/2024 11:30 PM EDT 05/17/2024 11:30 PM EDT Saba Speasr MD POINT OF CARE TEST ORDERABLES Performing Organization Address City/[facility] Co de Phone Number [facility] [place] [address] * POC, GLUCOSE (05/17/2024 8:12 PM EDT) Glucometer, POC 161 65 - 199 mg/dL 05/17/2024 8:12 PM EDT [facility] Comment:Supplemental ranges: <140 mg/dL before meals <180 mg/dL all other times of the day. Blood CAPILLARY BLOOD / Unknown 05/17/2024 8:12 PM EDT 05/17/2024 8:13 PM EDT Saba Spears MD POINT OF CARE TEST ORDERABLES Performing Organization Address [facility] Co de Phone Number [facility] [place] [address] * POC, GLUCOSE (05/17/2024 5:35 PM EDT) Glucometer, POC 167 65 - 199 mg/dL 05/17/2024 5:35 PM EDT [facility] Comment:Supplemental ranges: <140 mg/dL before meals <180 mg/dL all other times of the day. Blood CAPILLARY BLOOD / Unknown 05/17/2024 5:35 PM EDT 05/17/2024 5:35 PM EDT Saba Spears MD POINT OF CARE TEST ORDERABLES Performing Organization Address City/[facility]/ZIP Co de Phone Number [facility] [place] [address] * POC, GLUCOSE (05/17/2024 12:50 PM EDT) Glucometer, POC 147 65 - 199 mg/dL 05/17/2024 12:50 PM EDT [facility] Comment:Supplemental ranges: <140 mg/dL before meals <180 mg/dL all other times of the day. Blood CAPILLARY BLOOD / Unknown 05/17/2024 12:50 PM EDT 05/17/2024 12:50 PM EDT Saba Spears MD POINT OF CARE TEST ORDERABLES Performing Organization Address City/[facility]/ZIP Co de Phone Number [facility] [place] [address] * POC, GLUCOSE (05/17/2024 8:20 AM EDT) Glucometer, POC 139 65 - 199 mg/dL 05/17/2024 8:21 AM EDT [facility] Comment:Supplemental ranges: <140 mg/dL before meals <180 mg/dL all other times of the day. Blood CAPILLARY BLOOD / Unknown 05/17/2024 8:20 AM EDT 05/17/2024 8:21 AM EDT Treva Diaz MD POINT OF CARE TEST ORDERABLES Performing Organization Address City/[facility]/ZIP Co de Phone Number [facility] [place] [address] * (ABNORMAL) Magnesium (05/17/2024 5:49 AM EDT) Magnesium 1.14(H) 0.69 - 1.07 mMol/L 05/17/2024 6:58 AM EDT [facility] Blood IP Care Team w / Unknown 05/17/2024 5:49 AM EDT 05/17/2024 6:13 AM EDT Mary De La Fuente MD CHEMISTRY ORDERABL ES Performing Organization Address City/[facility]/ZIP Co de Phone Number [facility] [place] [address] * (ABNORMAL) Phosphorus (05/17/2024 5:49 AM EDT) Phosphorus 5.6(H) 2.5 - 4.5 mg/dL 05/17/2024 6:58 AM EDT [facility] Blood IP Care Team w / Nick 05/17/2024 5:49 AM EDT 05/17/2024 6:13 AM EDT Mary De La Fuente MD CHEMISTRY ORDERABL ES [facility] [place] [address] * (ABNORMAL) Basic Metabolic Panel (non-fasting) (05/17/2024 5:49 AM EDT) Glucose 131 65 - 199 mg/dL 05/17/2024 6:58 AM EDT [facility] Comment:Glucose Concentratio n >=200 mg/dL plus symptoms is consistent with Diabetes Mellitus. Blood Urea Nitrogen 86(H) 10 - 20 mg/dL 05/17/2024 6:58 AM T [facility] Creatinine 3.07(H) 0.80 - 1.50 mg/dL 05/17/2024 6:58 AM [facility] Sodium 134(L) 135 - 145 mMol/L 05/17/2024 6:58 AM [facility] Potassium 5.0 3.5 - 5.0 mMol/L 05/17/2024 6:58 AM [facility] Chloride 103 98 - 107 mMol/L 05/17/2024 6:58 AM [facility] Carbon Dioxide 21(L) 22 - 31 mMol/L 05/17/2024 6:58 [facility] Anion Gap 10 5 - 15 mMol/L 05/17/2024 6:58 AM [facility] Calcium 8.7 8.5 - 10.5 mg/dL 05/17/2024 6:58 AM [facility] Est Glomerular Filtration Rate - Male 21 mL/min/1. 73 m?? 05/17/2024 6:58 AM [facility] Comment: This patient's estimated GFR [...] Fasting Status No 05/17/2024 6:58 AM T [facility] Blood IP Care Team w / Nick 05/17/2024 5:49 AM EDT 05/17/2024 6:13 AM EDT Mary De La Fuente MD CHEMISTRY ORDERABL ES Performing Organization Address City/State/[facility] Co de Phone Number [facility] [place] [address] * (ABNORMAL) CBC (with Diff) (05/17/2024 5:49 AM EDT) White Blood Cell 8.61 4.00 - 9.50 x10(3)/mc L 05/17/2024 6:28 AM EDT [facility] Red Blood Cell 3.54(L) 4.58 - 5.54 x10(6)/mc L 05/17/2024 6:28 AM EDT [facility] Hemoglobin 10.5(L) 13.7 - 16.5 g/dL 05/17/2024 6:28 [facility] Hematocrit 33.9(L) 40.5 - 48.5 % 05/17/2024 6:28 [facility] Mean Cell Volume 95.8(H) 82.9 - 93.1 fL 05/17/2024 6:28 AM [facility] Mean Cell Hemoglobin 29.7 27.5 - 32.1 pg 05/17/2024 6:28 AM [facility] Mean Cell Hemoglobin Concentration 31.0(L) 32.0 - 35.7 g/dL 05/17/2024 6:28 AM [facility] Platelet 341 145 - 357 x10(3)/mc L 05/17/2024 6:28 AM [facility] Mean Platelet Volume 10.4 7.6 - 12.9 fL 05/17/2024 6:28 AM [facility] RDW Standard Deviation 56.5(H) 36.0 - 45.0 fL 05/17/2024 6:28 AM [facility] RDW coefficient of variation 15.7(H) 11.4 - 13.8 % 05/17/2024 6:28 AM [facility] NRBC% auto 0.0 % 05/17/2024 6:28 AM [facility] NRBC Absolute 0.00 0.00 - 0.00 x10(3)/mc L 05/17/2024 6:28 AM [facility] Neutrophil % 76.3 % 05/17/2024 6:28 AM [facility] Neutrophil Absolute 6.57(H) 1.70 - 6.10 x10(3)/mc L 05/17/2024 6:28 AM [facility] Lymph % 9.9 % 05/17/2024 6:28 AM [facility] Lymph Absolute 0.85(L) 0.90 - 3.20 x10(3)/mc L 05/17/2024 6:28 AM [facility] Monocyte % 11.7 % 05/17/2024 6:28 AM [facility] Monocyte Absolute 1.01(H) 0.30 - 0.90 x10(3)/mc L 05/17/2024 6:28 AM [facility] Eos % 0.8 % 05/17/2024 6:28 AM [facility] Eos Absolute 0.07 0.00 - 0.40 x10(3)/mc L 05/17/2024 6:28 AM EDT [facility] Basophil % 0.1 % 05/17/2024 6:28 AM EDT [facility] Baso Absolute 0.01 0.00 - 0.10 x10(3)/mc L 05/17/2024 6:28 AM EDT [facility] Immature Gran % 1.2 % 6:28 AM EDT [facility] Immature Gran Absolute 0.10(H) 0.00 - 0.04 x10(3)/mc L 05/17/2024 6:28 AM EDT [facility] Blood IP Care Team Gia w / Unknown 05/17/2024 5:49 AM EDT 05/17/2024 6:13 AM EDT Mary De La Fuente MD HEMATOLOGY ORDERAB LES Performing Organization Address City/[facility]/ZIP Co de Phone Number [facility] [place] [address] * Vancomycin Level, Random (05/17/2024 5:49 AM EDT) [facility] Vancomycin, Random 22.4 mg/L 2023 6:58 AM EDT [facility] Comment:This level is for de termination of the patient's vancomycin puet-[id number]-curve (AUC) value. Contact the inpatient pharmacy for interpretation. Blood IP Care Team Gia w / Unknown 05/17/2024 5:49 AM EDT 05/17/2024 6:13 AM EDT Treva Diaz MD CHEMISTRY ORDERABL ES Performing Organization Address [facility] Co de Phone Number [facility] [place] [address] * POC, GLUCOSE (05/17/2024 3:54 AM EDT) Glucometer, POC 135 65 - 199 mg/dL 05/17/2024 3:55 AM EDT [facility] Comment:Supplemental ranges: <140 mg/dL before meals <180 mg/dL all other times of the day. Blood CAPILLARY BLOOD / Unknown 05/17/2024 3:54 AM EDT 05/17/2024 3:55 AM EDT Terva Diaz MD POINT OF CARE TEST ORDERABLES [facility] [place] [address] * POCT Glucose (05/16/2024 11:46 PM EDT) Glucose, POC 148 65 - 199 mg/dL [facility] Comment: Supplemental ranges: <140 mg/dL before meals <180 mg/dL all other times of the day Blood 05/16/2024 11:4 6 PM EDT 05/16/2024 11:46 PM EDT Treva Diaz MD POINT OF CARE TEST ORDERABLES Performing Organization Address City/[facility]/ZIP Co de Phone Number [facility] [place] [address] * POCT Glucose (05/16/2024 9:06 PM EDT) Glucose, POC 191 65 - 199 mg/dL [facility] Comment: Supplemental ranges: <140 mg/dL before meals <180 mg/dL all other times of the day Blood 05/16/2024 9:06 PM EDT 05/16/2024 9:06 PM EDT Treva Diaz MD POINT OF CARE TEST ORDERABLES [facility] [place] [address] * POCT Glucose (05/16/2024 8:04 PM EDT) Glucose, POC 199 65 - 199 mg/dL [facility] Comment: Supplemental ranges: <140 mg/dL before meals <180 mg/dL all other times of the day Blood 05/16/2024 8:04 PM EDT 05/16/2024 8:04 PM EDT Treva Diaz MD POINT OF CARE TEST ORDERABLES [facility] [place] [address] * POCT Glucose (05/16/2024 4:51 PM EDT) Glucose, POC 162 65 - 199 mg/dL [facility] Comment: Supplemental ranges: <140 mg/dL before meals <180 mg/dL all other times of the day Blood 05/16/2024 4:51 PM EDT 05/16/2024 4:51 PM EDT Treva Diaz MD POINT OF CARE TEST ORDERABLES [facility] [place] [address] * POCT Glucose (05/16/2024 12:48 PM EDT) Glucose, POC 153 65 - 199 mg/dL [facility] Comment: Supplemental ranges: <140 mg/dL before meals <180 mg/dL all other times of the day Blood 05/16/2024 12:4 8 PM EDT 05/16/2024 12:48 PM EDT Treva Diaz MD POINT OF CARE TEST ORDERABLES [facility] [place] [address] * POCT Glucose (05/16/2024 8:45 AM EDT) Glucose, POC 165 65 - 199 mg/dL [facility] Comment: Supplemental ranges: <140 mg/dL before meals <180 mg/dL all other times of the day Blood 05/16/2024 8:45 AM EDT 05/16/2024 8:45 AM EDT Treva Diaz MD POINT OF CARE TEST ORDERABLES Performing Organization Address City/State/[facility] Co de Phone Number [facility] [place] [address] * (ABNORMAL) Differential, Automated (05/16/2024 5:14 AM EDT) Neutrophil % 79.4 % [facility] Neutrophil Absolute 9.22(H) 1.70 - 6.10 x10(3)/mc L [facility] Lymph % 6.6 % [facility] Lymphocytes Abs 0.8(L) 0.9 - 3.2 x10(3)/mc L [facility] Monocyte % 9.5 % [facility] Monocyte Abs 1.1(H) 0.3 - 0.9 x10(3)/mc L [facility] Eos % 0.0 % [facility] Eosinophils Abs 0.0 0.0 - 0.4 x10(3)/mc L [facility] Basophil % 0.2 % [facility] Baso Absolute 0.0 0.0 - 0.1 x10(3)/mc L [facility] Immature Gran % 4.30 % [facility] Comment: Immature granulocytes(IG's)percentage and absolute count will include metamyelocytes, myelocytes, and promyelocytes. Blood smears from CBCs yielding IG's will be scanned manually for concordance. If this scan disagrees with the automated IG or if promyelocytes are noted, a manual differential will be performed. Immature Gran Absolute 0.50(H) 0.00 - 0.04 x10(3)/mc L [facility] Blood 05/16/2024 5:14 AM EDT 05/16/2024 5:38 AM EDT Narrative Resulting Agency Comment Spec In Lab Carlotta Davis MD HEMATOLOGY OR DERABLES [facility] [place] [address] * (ABNORMAL) Hemogram (05/16/2024 5:14 AM EDT) White Blood Cell 11.6(H) 4.0 - 9.5 x10(3)/mc L [facility] Red Blood Cell 3.59(L) 4.58 - 5.54 x10(6)/mc L [facility] Hemoglobin 10.5(L) 13.7 - 16.5 g/dL [facility] Hematocrit 33.8(L) 40.5 - 48.5 % [facility] Mean Cell Volume 94.2(H) 82.9 - 93.1 fL [facility] Mean Cell Hemoglobin 29.2 27.5 - 32.1 pg [facility] Mean Cell Hemoglobin Concentration 31.1(L) 32.0 - 35.7 g/dL [facility] Platelet 317 145 - 357 x10(3)/mc L [facility] RDW Standard Deviation 55.1(H) 36.0 - 45.0 fL [facility] RDW coefficient of variation 15.9(H) 11.4 - 13.8 % [facility] Mean Platelet Volume 10.6 7.6 - 12.9 fL [facility] NRBC% auto 0.0 % [facility] NRBC Absolute 0.000 0.000 - 0.000 x10(3)/ L [facility] Blood 05/16/2024 5:14 AM EDT 05/16/2024 5:38 AM EDT Narrative Resulting Agency Comment Spec In Lab Carlotta Davis MD HEMATOLOGY OR DERABLES Performing Organization Address [facility] Co de Phone Number [facility] [place] [address] * (ABNORMAL) Magnesium (05/16/2024 5:14 AM EDT) Magnesium 1.22(H) 0.69 - 1.07 mmol/L [facility] Blood 05/16/2024 5:14 AM EDT 05/16/2024 5:38 AM EDT Narrative Resulting Agency Comment Spec In Lab Mary De La Fuente MD CHEMISTRY ORDERABL ES Performing Organization Address [facility] de Phone Number [facility] [place] [address] * (ABNORMAL) Phosphorus (05/16/2024 5:14 AM EDT) Phosphorus 6.3(H) 2.5 - 4.5 mg/dL [facility] Blood 05/16/2024 5:14 AM EDT 05/16/2024 5:38 AM EDT Narrative Resulting Agency Comment Spec In Lab Mary De La Fuente MD CHEMISTRY ORDERABL ES Performing Organization Address [facility] Co de Phone Number [facility] [place] [address] * (ABNORMAL) Basic Metabolic Panel (non-fasting) (05/16/2024 5:14 AM EDT) Glucose 154 65 - 199 mg/dL [facility] Comment:Diabetes: >=200 mg/d L plus symptoms Blood Urea Nitrogen 74(H) 10 - 20 mg/dL [facility] Creatinine 2.88(H) 0.80 - 1.50 mg/dL [facility] Sodium 133(L) 135 - 145 mmol/L [facility] Potassium 5.0 3.5 - 5.0 mmol/L [facility] Comment: Please note: ??Patients with WBC >100,000 may have falsely elevated Potassium levels. ??For accurate Potassium quantification in these patients send serum separator tube (gold top) for subsequent determinations. ??Contact the Clinical Chemistry Laboratory if there are any questions. Chloride 101 98 - 107 mmol/L [facility] Carbon Dioxide 21(L) 22 - 31 mmol/L [facility] Anion Gap 11 5 - 15 mmol/L [facility] Calcium 8.8 8.5 - 10.5 mg/dL [facility] Est Glomerular Filtration Rate 23(L) >=60 mL/min/1. 73 m?? [facility] Comment: This patient's estimated GFR [...] De La Fuente MD CHEMISTRY ORDERABL ES [facility] [place] [address] * Vancomycin Level, Random (05/16/2024 5:14 AM EDT) Vancomycin, Random 29.1 mg/L M [facility] Comment: This level is for determination of the patient's vancomycin dizs-yrrzw-jex-curve (AUC) value. Contact the inpatient pharmacy for interpretation. Blood 05/16/2024 5:14 AM EDT 05/16/2024 5:38 AM EDT Treva Diaz MD CHEMISTRY ORDERABL ES Performing Organization Address City/[facility]/ZIP Co de Phone Number [facility] [place] [address] * POCT Glucose (05/16/2024 3:53 AM EDT) Glucose, POC 166 65 - 199 mg/dL [facility] Comment: Supplemental ranges: <140 mg/dL before meals <180 mg/dL all other times of the day Blood 05/16/2024 3:53 AM EDT 05/16/2024 3:53 AM EDT Treva Diaz MD POINT OF CARE TEST ORDERABLES Performing Organization Address [facility] Co de Phone Number [facility] [place] [address] * POCT Glucose (05/15/2024 11:41 PM EDT) Glucose, POC 171 65 - 199 mg/dL [facility] Comment: Supplemental ranges: <140 mg/dL before meals <180 mg/dL all other times of the day Blood 05/15/2024 11:4 1 PM EDT 05/15/2024 11:41 PM EDT Treva Diaz MD POINT OF CARE TEST ORDERABLES Performing Organization Address City/[facility]/ZIP Co de Phone Number [facility] [place] [address] * POCT Glucose (05/15/2024 10:32 PM EDT) Glucose, POC 183 65 - 199 mg/dL [facility] Comment: Supplemental ranges: <140 mg/dL before meals <180 mg/dL all other times of the day Blood 05/15/2024 10:3 2 PM EDT 05/15/2024 10:32 PM EDT Treva Diaz MD POINT OF CARE TEST ORDERABLES [facility] [place] [address] * POCT Glucose (05/15/2024 7:53 PM EDT) Pathologist [facility] Glucose, POC 187 65 - 199 mg/dL [facility] Comment: Supplemental ranges: <140 mg/dL before meals <180 mg/dL all other times of the day Blood 05/15/2024 7:53 PM EDT 05/15/2024 7:53 PM EDT Treva Diaz MD POINT OF CARE TEST ORDERABLES Performing Organization Address City/[facility]/ZIP Co de Phone Number [facility] [place] [address] * MRSA PCR Screen ([facility]/CGP/APD/NLH) (05/15/2024 4:15 PM EDT) [facility] MRSA PCR Negative Negative [facility] MRSA (Interp) Methicillin-resist ant Staphylococcus aureus (MRSA) is NOT DETECTED The MRSA target DNA sequences (mec and SCC) were not detected within the acceptable ranges using the Xpert MRSA NxG on the GeneXpert Dx System ([employer]). This suggests the absence of MRSA in the patient specimen submitted for testing. This test is cleared by the U.S. Food and Drug Administration for clinical use and its performance characteristics have been verified by the [facility] at [facility]. This result does not rule out the presence of any other organisms. Rare false negative results may occur if MRSA is present at low concentrations with much higher concentrations of other organisms including MRSE or S. aureus with an empty SCC cassette. [facility] Comment: [VERIFIED DATE]05.15.24 Verified By:Lupe Jensen (Electronic Signature) Nasopharyngeal Swab 05/15/20 4:15 PM EDT 05/15/2024 6:28 PM EDT Comment:Specimen Type->Nasop haryngeal Swab Narrative Resulting Agency Comment Spec In Lab Treva Diaz MD MOLECULAR ORDERABL ES Performing Organization Address [facility]/ZIP Co de Phone Number [facility] [place] [address] * (ABNORMAL) POCT Glucose (05/15/2024 3:20 PM EDT) Glucose, POC 224(H) 65 - 199 mg/dL [facility] Comment: Supplemental ranges: <140 mg/dL before meals <180 mg/dL all other times of the day Blood 05/15/2024 3:20 PM EDT 05/15/2024 3:20 PM EDT Treva Diaz MD POINT OF CARE TEST ORDERABLES Performing Organization Address [facility] Co de Phone Number [facility] [place] [address] * (ABNORMAL) POCT Glucose (05/15/2024 11:39 AM EDT) Glucose, POC 213(H) 65 - 199 mg/dL [facility] Comment: Supplemental ranges: <140 mg/dL before meals <180 mg/dL all other times of the day Blood 05/15/2024 11:3 9 AM EDT 05/15/2024 11:39 AM EDT Treva Diaz MD POINT OF CARE TEST ORDERABLES Performing Organization Address [facility] Co de Phone Number [facility] [place] [address] * POCT Glucose (05/15/2024 8:02 AM EDT) Glucose, POC 190 65 - 199 mg/dL [facility] Comment: Supplemental ranges: <140 mg/dL before meals <180 mg/dL all other times of the day Blood 05/15/2024 8:02 AM EDT 05/15/2024 8:02 AM EDT Treva Diaz MD POINT OF CARE TEST ORDERABLES [facility] [place] [address] * (ABNORMAL) Differential, Automated (05/15/2024 5:12 AM EDT) Neutrophil % 85.3 % [facility] Neutrophil Absolute 11.37(H) 1.70 - 6.10 x10(3)/mc L [facility] Lymph % 3.7 % [facility] Lymphocytes Abs 0.5(L) 0.9 - 3.2 x10(3)/ L [facility] Monocyte % 9.1 % [facility] Monocyte Abs 1.2(H) 0.3 - 0.9 x10(3)/ L [facility] Eos % 0.0 % [facility] Eosinophils Abs 0.0 0.0 - 0.4 x10(3)/ L [facility] Basophil % 0.1 % [facility] Baso Absolute 0.0 0.0 - 0.1 x10(3)/[facility] Immature Gran % 1.80 % [facility] Comment: Immature granulocytes(IG's)percentage and absolute count will include metamyelocytes, myelocytes, and promyelocytes. Blood smears from CBCs yielding IG's will be scanned manually for concordance. If this scan disagrees with the automated IG or if promyelocytes are noted, a manual differential will be performed. Immature Gran Absolute 0.24(H) 0.00 - 0.04 x10(3)/ L [facility] Blood 05/15/2024 5:12 AM EDT 05/15/2024 5:38 AM EDT Narrative Resulting Agency Comment Spec In Lab Carlotta Davis MD HEMATOLOGY OR DERABLES [facility] [place] [address] * (ABNORMAL) Hemogram (05/15/2024 5:12 AM EDT) White Blood Cell 13.4(H) 4.0 - 9.5 x10(3)/mc L [facility] Red Blood Cell 3.58(L) 4.58 - 5.54 x10(6)/ L [facility] Hemoglobin 10.9(L) 13.7 - 16.5 g/dL [facility] Hematocrit 34.1(L) 40.5 - 48.5 % [facility] Mean Cell Volume 95.3(H) 82.9 - 93.1 fL [facility] Mean Cell Hemoglobin 30.4 27.5 - 32.1 pg [facility] Mean Cell Hemoglobin Concentration 32.0 32.0 - 35.7 g/dL [facility] Platelet 227 145 - 357 x10(3)/ L [facility] RDW Standard Deviation 55.8(H) 36.0 - 45.0 [facility] RDW coefficient of variation 15.8(H) 11.4 - 13.8 % [facility] Mean Platelet Volume 10.7 7.6 - 12.9 fL [facility] NRBC% auto 0.0 % [facility] NRBC Absolute 0.000 0.000 - 0.000 x10(3)/[facility] Blood 05/15/2024 5:12 AM EDT 05/15/2024 5:38 AM EDT Narrative Resulting Agency Comment Spec In Lab Carlotta Davis MD HEMATOLOGY OR DERABLES [facility] [place] [address] * (ABNORMAL) Magnesium (05/15/2024 5:12 AM EDT) Magnesium 1.21(H) 0.69 - 1.07 mmol/L [facility] Blood 05/15/2024 5:12 AM EDT 05/15/2024 5:38 AM EDT Narrative Resulting Agency Comment Spec In Lab Mary De La Fuente MD CHEMISTRY ORDERABL ES Performing Organization Address [facility]/ZIP Co de Phone Number [facility] [place] [address] * (ABNORMAL) Phosphorus (05/15/2024 5:12 AM EDT) Phosphorus 6.5(H) 2.5 - 4.5 mg/dL [facility] Comment:result rechecked-HN Blood 05/15/2024 5:12 AM EDT 05/15/2024 5:38 AM EDT Narrative Resulting Agency Comment Spec In Lab Mary De La Fuente MD CHEMISTRY ORDERABL ES Performing Organization Address [facility] Co de Phone Number [facility] [place] [address] * (ABNORMAL) Basic Metabolic Panel (non-fasting) (05/15/2024 5:12 AM EDT) Glucose 217(H) 65 - 199 mg/dL [facility] Comment:Diabetes: >=200 mg/d L plus symptoms Blood Urea Nitrogen 58(H) 10 - 20 mg/dL [facility] Creatinine 2.46(H) 0.80 - 1.50 mg/dL [facility] Comment:result rechecked-HN Sodium 135 135 - 145 mmol/L [facility] Potassium 5.2(H) 3.5 - 5.0 mmol/L [facility] Comment: Please note: ??Patients with WBC >100,000 may have falsely elevated Potassium levels. ??For accurate Potassium quantification in these patients send serum separator tube (gold top) for subsequent determinations. ??Contact the Clinical Chemistry Laboratory if there are any questions. Chloride 100 98 - 107 mmol/L [facility] Carbon Dioxide 23 22 - 31 mmol/L [facility] Anion Gap 12 5 - 15 mmol/L [facility] Calcium 8.8 8.5 - 10.5 mg/dL [facility] Est Glomerular Filtration Rate 27(L) >=60 mL/min/1. 73 m?? [facility] Comment: This patient's estimated GFR [...] De La Fuente MD CHEMISTRY ORDERABL ES [facility] [place] [address] * (ABNORMAL) POCT Glucose (05/15/2024 4:55 AM EDT) Glucose, POC 223(H) 65 - 199 mg/dL [facility] Comment: Supplemental ranges: <140 mg/dL before meals <180 mg/dL all other times of the day Blood 05/15/2024 4:55 AM EDT 05/15/2024 4:55 AM EDT Treva Diaz MD POINT OF CARE TEST ORDERABLES [facility] [place] [address] * (ABNORMAL) POCT Glucose (05/15/2024 2:51 AM EDT) Glucose, POC 279(H) 65 - 199 mg/dL [facility] Comment: Supplemental ranges: <140 mg/dL before meals <180 mg/dL all other times of the day Blood 05/15/2024 2:51 AM EDT 05/15/2024 2:51 AM EDT Treva Diaz MD POINT OF CARE TEST ORDERABLES [facility] [place] [address] * (ABNORMAL) POCT Glucose (05/14/2024 9:03 PM EDT) Glucose, POC 257(H) 65 - 199 mg/dL [facility] Comment: Supplemental ranges: <140 mg/dL before meals <180 mg/dL all other times of the day Blood 05/14/2024 9:03 PM EDT 05/14/2024 9:03 PM EDT Treva Diaz MD POINT OF CARE TEST ORDERABLES [facility] [place] [address] * (ABNORMAL) POCT Glucose (05/14/2024 7:15 PM EDT) Glucose, POC 207(H) 65 - 199 mg/dL [facility] Comment: Supplemental ranges: <140 mg/dL before meals <180 mg/dL all other times of the day Blood 05/14/2024 7:15 PM EDT 05/14/2024 7:15 PM EDT Treva Diaz MD POINT OF CARE TEST ORDERABLES [facility] [place] [address] * POCT Glucose (05/14/2024 4:47 PM EDT) Glucose, POC 188 65 - 199 mg/dL [facility] Comment: Supplemental ranges: <140 mg/dL before meals <180 mg/dL all other times of the day Blood 05/14/2024 4:47 PM EDT 05/14/2024 4:47 PM EDT Treva Diaz MD POINT OF CARE TEST ORDERABLES Performing Organization Address City/[facility]/ZIP Co de Phone Number [facility] [place] [address] * POCT Glucose (05/14/2024 1:21 PM EDT) Glucose, POC 163 65 - 199 mg/dL [facility] Comment: Supplemental ranges: <140 mg/dL before meals <180 mg/dL all other times of the day Blood 05/14/2024 1:21 PM EDT 05/14/2024 1:21 PM EDT Treva Diaz MD POINT OF CARE TEST ORDERABLES Performing Organization Address [facility]/ZIP Co de Phone Number [facility] [place] [address] * Anaerobic Culture (05/14/2024 11:33 AM EDT) Anaerobic Culture No anaerobic organisms isolated [facility] Toe 05/14/2024 11:3 3 AM EDT 05/14/2024 12:33 PM EDT Comment:PROXIMAL RIGHT 2ND T OE Narrative Resulting Agency Comment Spec In Lab Gennaro Meyers MD MICROBIOLOGY - GENE RAL ORDERABLES Performing Organization Address [facility]/ZIP Co de Phone Number [facility] [place] [address] * (ABNORMAL) Tissue culture (05/14/2024 11:33 AM EDT) Tissue Culture One colony of Coagulase negative Staphylococcus species(A) [facility] Gram Stain Few Neutrophils seen Rare Gram Positive Cocci in pairs seen Results called to and read back by Dr. Mihaela Galvan ??05/14/24 14:57:00 (A) [facility] Organism Coagulase negative Staphylococcus species(A) [facility] Organism Gram Positive Cocci in pairs(A) [facility] Toe 05/14/2024 11:3 3 AM [...] Sensitive Comment:Gentamicin i s not appropriate for [place]-therapy. Coagulase Negative Staphylococcus species Levofloxacin MICROSCAN METHOD [...] METHOD Sensitive Gennaro Meyers MD MICROBIOLOGY - [facility] ORDERABLES [facility] [place] [address] * Surgical Pathology Report (05/14/2024 11:32 AM EDT) Surgical Pathology Report [id number] ? Location: [id number]; [id number]; A The signing [...] MD, Shima Verified: ??05/20/2024 11:25 Performed at: ??-[facility] Dept. of Pathology, [place] [address] Special Events Fundraiser: Polly Barnhart MD, FCAP, ??CLIA Certificate: [id number] SPECIMEN(S) SUBMITTED A - RIGHT 2ND TOE, [...] Sections/Processi ng: Blocks submitted for decalcification: A1-A2. Organic Chemist sections in 2 cassettes as follows: ?A1-A2: ??Longitudinal section of digit ??cmk [facility] 05/14/2024 11:3 2 AM EDT Gennaro Meyers MD PATHOLOGY/CYTOLOGY ORDERABLES [facility] [place] [address] * Specimen to Pathology (05/14/2024 11:32 AM EDT) AP Specimen 05/14/2024 11:3 2 AM EDT 05/14/2024 11:32 AM EDT Narrative [facility] - 05/14/2024 11:32 AM EDT Specimen requisition ordered. ??Separate Pathology report to follow Treva Diaz MD PATHOLOGY/CYTOLOGY ORDERABLES Performing Organization Address City/[facility] Co de Phone Number [facility] [place] [address] * (ABNORMAL) POCT Glucose (05/14/2024 7:58 AM EDT) [facility] Glucose, POC 203(H) 65 - 199 mg/dL [facility] Comment: Supplemental ranges: <140 mg/dL before meals <180 mg/dL all other times of the day Blood 05/14/2024 7:58 AM EDT 05/14/2024 7:58 AM EDT Treva Diaz MD POINT OF CARE TEST ORDERABLES Performing Organization Address [facility] Co de Phone Number [facility] [place] [address] * (ABNORMAL) Differential, Automated (05/14/2024 5:01 AM EDT) [facility] Neutrophil % 80.5 % [facility] Neutrophil Absolute 12.45(H) 1.70 - 6.10 x10(3)/mc L [facility] Lymph % 5.5 % [facility] Lymphocytes Abs 0.8(L) 0.9 - 3.2 x10(3)/mc L [facility] Monocyte % 12.6 % [facility] Monocyte Abs 2.0(H) 0.3 - 0.9 x10(3)/mc L [facility] Eos % 0.3 % [facility] Eosinophils Abs 0.0 0.0 - 0.4 x10(3)/mc L [facility] Basophil % 0.2 % [facility] Baso Absolute 0.0 0.0 - 0.1 x10(3)/ L [facility] Immature Gran % 0.90 % [facility] Comment: Immature granulocytes(IG's)percentage and absolute count will include metamyelocytes, myelocytes, and promyelocytes. Blood smears from CBCs yielding IG's will be scanned manually for concordance. If this scan disagrees with the automated IG or if promyelocytes are noted, a manual differential will be performed. Immature Gran Absolute 0.14(H) 0.00 - 0.04 x10(3)/[facility] Blood 05/14/2024 5:01 AM EDT 05/14/2024 6:02 AM EDT Narrative Resulting Agency Comment Spec In Lab Carlotta Davis MD HEMATOLOGY OR DERABLES [facility] [place] [id number] * (ABNORMAL) Hemogram (05/14/2024 5:01 AM EDT) White Blood Cell 15.5(H) 4.0 - 9.5 x10(3)/ L [facility] Red Blood Cell 3.55(L) 4.58 - 5.54 x10(6)/mc L [facility] Hemoglobin 10.8(L) 13.7 - 16.5 g/dL [facility] Hematocrit 32.8(L) 40.5 - 48.5 % [facility] Mean Cell Volume 92.4 82.9 - 93.1 fL [facility] Mean Cell Hemoglobin 30.4 27.5 - 32.1 pg [facility] Mean Cell Hemoglobin Concentration 32.9 32.0 - 35.7 g/dL [facility] Platelet 190 145 - 357 x10(3)/ L [facility] RDW Standard Deviation 53.2(H) 36.0 - 45.0 fL [facility] RDW coefficient of variation 15.6(H) 11.4 - 13.8 % [facility] Mean Platelet Volume 11.2 7.6 - 12.9 fL [facility] NRBC% auto 0.0 % [facility] NRBC Absolute 0.000 0.000 - 0.000 x10(3)/mc L [facility] Blood 05/14/2024 5:01 AM EDT 05/14/2024 6:02 AM EDT Narrative Resulting Agency Comment Spec In Lab Carlotta Davis MD HEMATOLOGY OR DERABLES Performing Organization Address [facility] [place] [address] * Magnesium (05/14/2024 5:01 AM EDT) Magnesium 0.98 0.69 - 1.07 mmol/L [facility] Blood 05/14/2024 5:01 AM EDT 05/14/2024 6:02 AM EDT Narrative Resulting Agency Comment Spec In Lab Mary De La Fuente MD CHEMISTRY ORDERABL ES Performing Organization Address [facility] [place] [address] * Phosphorus (05/14/2024 5:01 AM EDT) Phosphorus 2.8 2.5 - 4.5 mg/dL [facility] Blood 05/14/2024 5:01 AM EDT 05/14/2024 6:02 AM EDT Narrative Resulting Agency Comment Spec In Lab Mary De La Fuente MD CHEMISTRY ORDERABL ES Performing Organization Address [facility] Co de Phone Number [facility] [place] [address] * (ABNORMAL) Basic Metabolic Panel (non-fasting) (05/14/2024 5:01 AM EDT) Glucose 172 65 - 199 mg/dL [facility] Comment:Diabetes: >=200 mg/d L plus symptoms Blood Urea Nitrogen 46(H) 10 - 20 mg/dL [facility] Creatinine 1.56(H) 0.80 - 1.50 mg/dL [facility] Sodium 137 135 - 145 mmol/L [facility] Potassium 4.4 3.5 - 5.0 mmol/L [facility] Comment: Please note: ??Patients with WBC >100,000 may have falsely elevated Potassium levels. ??For accurate Potassium quantification in these patients send serum separator tube (gold top) for subsequent determinations. ??Contact the Clinical Chemistry Laboratory if there are any questions. Chloride 105 98 - 107 mmol/L [facility] Carbon Dioxide 22 22 - 31 mmol/L [facility] Anion Gap 10 5 - 15 mmol/L [facility] Calcium 8.7 8.5 - 10.5 mg/dL [facility] Est Glomerular Filtration Rate 47(L) >=60 mL/min/1. 73 m?? [facility] Comment: This patient's estimated GFR [...] MD CHEMISTRY ORDERABL ES Performing Organization Address City/[facility] Co de Phone Number [facility] [place] [address] * Vancomycin Level, Random (05/14/2024 5:01 AM EDT) Vancomycin, Random 13.5 mg/L [facility] Comment: This level is for determination of the patient's vancomycin ratp-ojywy-dhm-curve (AUC) value. Contact the inpatient pharmacy for interpretation. Blood 05/14/2024 5:01 AM EDT 05/14/2024 6:02 AM EDT Treva Diaz MD CHEMISTRY ORDERABL ES Performing Organization Address [facility] Co de Phone Number [facility] [place] [address] * POCT Glucose (05/13/2024 8:41 PM EDT) Glucose, POC 179 65 - 199 mg/dL [facility] Comment: Supplemental ranges: <140 mg/dL before meals <180 mg/dL all other times of the day Blood 05/13/2024 8:41 PM EDT 05/13/2024 8:41 PM EDT Treva Diaz MD POINT OF CARE TEST ORDERABLES Performing Organization Address City/[facility]/ZIP Co de Phone Number [facility] [place] [address] * POCT Glucose (05/13/2024 6:06 PM EDT) Glucose, POC 135 65 - 199 mg/dL [facility] Comment: Supplemental ranges: <140 mg/dL before meals <180 mg/dL all other times of the day Blood 05/13/2024 6:06 PM EDT 05/13/2024 6:06 PM EDT Treva Diaz MD POINT OF CARE TEST ORDERABLES [facility] [place] [address] * POCT Glucose (05/13/2024 11:12 AM EDT) Glucose, POC 163 65 - 199 mg/dL [facility] Comment: Supplemental ranges: <140 mg/dL before meals <180 mg/dL all other times of the day Blood 05/13/2024 11:1 2 AM EDT 05/13/2024 11:12 AM EDT Treva Diaz MD POINT OF CARE TEST ORDERABLES Performing Organization Address City/[facility]/ZIP Co de Phone Number [facility] [place] [address] * POCT Glucose (05/13/2024 7:47 AM EDT) Glucose, POC 194 65 - 199 mg/dL [facility] Comment: Supplemental ranges: <140 mg/dL before meals <180 mg/dL all other times of the day Blood 05/13/2024 7:47 AM EDT 05/13/2024 7:47 AM EDT Treva Diaz MD POINT OF CARE TEST ORDERABLES Performing Organization Address City/[facility]/ZIP Co de Phone Number [facility] [place] [address] * Scan, Peripheral Blood (05/13/2024 5:29 AM EDT) Plat estimate Normal [facility] RBC Morphology Abnormal [facility] Sofía Cells 1-5 /HPF [facility] Plat, Giant Less than 1 /HPF [facility] Blood 05/13/2024 5:29 AM EDT 05/13/2024 5:49 AM EDT Narrative Resulting Agency Comment Spec In Lab Carlotta Davis MD HEMATOLOGY OR DERABLES Performing Organization Address City/[facility]/ZIP Co de Phone Number [facility] [place] [address] * (ABNORMAL) Differential, Automated (05/13/2024 5:29 AM EDT) Neutrophil % 81.8 % [facility] Neutrophil Absolute 12.66(H) 1.70 - 6.10 x10(3)/mc L [facility] Lymph % 5.0 % [facility] Lymphocytes Abs 0.8(L) 0.9 - 3.2 x10(3)/ L [facility] Monocyte % 12.3 % [facility] Monocyte Abs 1.9(H) 0.3 - 0.9 x10(3)/mc L [facility] Eos % 0.2 % [facility] Eosinophils Abs 0.0 0.0 - 0.4 x10(3)/mc L [facility] Basophil % 0.1 % [facility] Baso Absolute 0.0 0.0 - 0.1 x10(3)/mc L [facility] Immature Gran % 0.60 % [facility] Comment: Immature granulocytes(IG's)percentage and absolute count will include metamyelocytes, myelocytes, and promyelocytes. Blood smears from CBCs yielding IG's will be scanned manually for concordance. If this scan disagrees with the automated IG or if promyelocytes are noted, a manual differential will be performed. Immature Gran Absolute 0.09(H) 0.00 - 0.04 x10(3)/mc L [facility] Blood 05/13/2024 5:29 AM EDT 05/13/2024 5:49 AM EDT Narrative Resulting Agency Comment Spec In Lab Carlotta Davis MD HEMATOLOGY OR DERABLES Performing Organization Address City/[facility]/ZIP Co de Phone Number [facility] [place] [address] * (ABNORMAL) Hemogram (05/13/2024 5:29 AM EDT) White Blood Cell 15.5(H) 4.0 - 9.5 x10(3)/ L [facility] Red Blood Cell 3.64(L) 4.58 - 5.54 x10(6)/[facility] Hemoglobin 10.9(L) 13.7 - 16.5 g/dL [facility] Hematocrit 33.3(L) 40.5 - 48.5 % [facility] Mean Cell Volume 91.5 82.9 - 93.1 fL [facility] Mean Cell Hemoglobin 29.9 27.5 - 32.1 pg [facility] Mean Cell Hemoglobin Concentration 32.7 32.0 - 35.7 g/dL [facility] Platelet 186 145 - 357 x10(3)/[facility] RDW Standard Deviation 53.0(H) 36.0 - 45.0 [facility] RDW coefficient of variation 15.8(H) 11.4 - 13.8 % [facility] Mean Platelet Volume 11.8 7.6 - 12.9 fL [facility] NRBC% auto 0.0 % [facility] NRBC Absolute 0.000 0.000 - 0.000 x10(3)/[facility] Blood 05/13/2024 5:29 AM EDT 05/13/2024 5:49 AM EDT Narrative Resulting Agency Comment Spec In Lab Carlotta Davis MD HEMATOLOGY OR DERABLES [facility] [place] [address] * Magnesium (05/13/2024 5:29 AM EDT) Pathologist [facility] Magnesium 0.99 0.69 - 1.07 mmol/L [facility] Blood 05/13/2024 5:29 AM EDT 05/13/2024 5:49 AM EDT Narrative Resulting Agency Comment Spec In Lab Mary De La Fuente MD CHEMISTRY ORDERABL ES Performing Organization Address [facility] Co de Phone Number [facility] [place] [address] * Phosphorus (05/13/2024 5:29 AM EDT) Phosphorus 2.7 2.5 - 4.5 mg/dL [facility] Blood 05/13/2024 5:29 AM EDT 05/13/2024 5:49 AM EDT Narrative Resulting Agency Comment Spec In Lab Mary De La Fuente MD CHEMISTRY ORDERABL ES Performing Organization Address [facility] de Phone Number [facility] [place] [address] * (ABNORMAL) Basic Metabolic Panel (non-fasting) (05/13/2024 5:29 AM EDT) Glucose 166 65 - 199 mg/dL [facility] Comment:Diabetes: >=200 mg/d L plus symptoms Blood Urea Nitrogen 57(H) 10 - 20 mg/dL [facility] Creatinine 1.53(H) 0.80 - 1.50 mg/dL [facility] Sodium 137 135 - 145 mmol/L [facility] Potassium 4.4 3.5 - 5.0 mmol/L [facility] Comment: Please note: ??Patients with WBC >100,000 may have falsely elevated Potassium levels. ??For accurate Potassium quantification in these patients send serum separator tube (gold top) for subsequent determinations. ??Contact the Clinical Chemistry Laboratory if there are any questions. Chloride 104 98 - 107 mmol/L [facility] Carbon Dioxide 24 22 - 31 mmol/L [facility] Anion Gap 9 5 - 15 mmol/L [facility] Calcium 8.7 8.5 - 10.5 mg/dL [facility] Est Glomerular Filtration Rate 49(L) >=60 mL/min/1. 73 m?? [facility] Comment: This patient's estimated GFR [...] MD CHEMISTRY ORDERABL ES Performing Organization Address City/[facility]/ZIP Co de Phone Number [facility] [place] [address] * POCT Glucose (05/12/2024 11:46 PM EDT) Glucose, POC 165 65 - 199 mg/dL [facility] Comment: Supplemental ranges: <140 mg/dL before meals <180 mg/dL all other times of the day Blood 05/12/2024 11:4 6 PM EDT 05/12/2024 11:46 PM EDT Treva Diaz MD POINT OF CARE TEST ORDERABLES [facility] [place] [address] * POCT Glucose (05/12/2024 8:36 PM EDT) Glucose, POC 164 65 - 199 mg/dL [facility] Comment: Supplemental ranges: <140 mg/dL before meals <180 mg/dL all other times of the day Blood 05/12/2024 8:36 PM EDT 05/12/2024 8:36 PM EDT Treva Diaz MD POINT OF CARE TEST ORDERABLES Performing Organization Address City/[facility]/ZIP Co de Phone Number [facility] [place] [address] * POCT Glucose (05/12/2024 5:38 PM EDT) Glucose, POC 175 65 - 199 mg/dL [facility] Comment: Supplemental ranges: <140 mg/dL before meals <180 mg/dL all other times of the day Blood 05/12/2024 5:38 PM EDT 05/12/2024 5:38 PM EDT Treva Diaz MD POINT OF CARE TEST ORDERABLES Performing Organization Address [facility]/ZIP Co de Phone Number [facility] [place] [address] * Vancomycin Level, Random (05/12/2024 2:10 PM EDT) Vancomycin, Random 22.3 mg/L [facility] Comment: This level is for determination of the patient's vancomycin gbpy-uufnv-gvq-curve (AUC) value. Contact the inpatient pharmacy for interpretation. Blood 05/12/2024 2:10 PM EDT 05/12/2024 2:23 PM EDT Treva Diaz MD CHEMISTRY ORDERABL ES Performing Organization Address City/[facility]/ZIP Co de Phone Number [facility] [place] [address] * POCT Glucose (05/12/2024 1:42 PM EDT) Glucose, POC 168 65 - 199 mg/dL [facility] Comment: Supplemental ranges: <140 mg/dL before meals <180 mg/dL all other times of the day Blood 05/12/2024 1:42 PM EDT 05/12/2024 1:42 PM EDT Treva Diaz MD POINT OF CARE TEST ORDERABLES Performing Organization Address City/[facility] Co de Phone Number [facility] [place] [address] * Duplex for DVT, Leg, Unilat (05/12/2024 10:19 AM EDT) VB Text Report Department: Vascular Surgery Lab Patient: [id number] (JOSSY SHANKS) CPT: 04014 Referring Physician: MARY DE LA FUENTE ?? [...] MD VASCULAR ORDERABLE S Performing Organization Address City/[facility]/ZIP Co de Phone Number [facility] * POCT Glucose (05/12/2024 9:00 AM EDT) Glucose, POC 161 65 - 199 mg/dL [facility] Comment: Supplemental ranges: <140 mg/dL before meals <180 mg/dL all other times of the day Blood 05/12/2024 9:00 AM EDT 05/12/2024 9:00 AM EDT Treva Diaz MD POINT OF CARE TEST ORDERABLES Performing Organization Address [facility] Co de Phone Number [facility] [place] [address] * (ABNORMAL) Sedimentation rate (05/12/2024 4:45 AM EDT) [facility] Sedimentation Rate Automated >119(H) 3 - 46 mm/hr [facility] Comment: Effective September 24, 2019 [...] MD HEMATOLOGY ORDERABLE S Performing Organization Address [facility] Co de Phone Number [facility] [place] [address] * (ABNORMAL) CRP, acute inflammation (05/12/2024 4:45 AM EDT) [facility] C-Reactive Protein 152.4(H) <=4.9 mg/L [facility] Blood Venous Draw / Unknown 05/12/2024 4:45 AM EDT 05/12/2024 5:12 AM EDT Narrative Resulting Agency Comment Spec In Lab Juan José Harrison MD CHEMISTRY ORDERABLES Performing Organization Address [facility] Co de Phone Number [facility] [place] [address] * (ABNORMAL) Differential, Automated (05/12/2024 4:45 AM EDT) [facility] Neutrophil % 87.9 % [facility] Neutrophil Absolute 17.31(H) 1.70 - 6.10 x10(3)/mc L [facility] Lymph % 3.9 % [facility] Lymphocytes Abs 0.8(L) 0.9 - 3.2 x10(3)/mc L [facility] Monocyte % 7.4 % [facility] Monocyte Abs 1.4(H) 0.3 - 0.9 x10(3)/ L [facility] Eos % 0.0 % [facility] Eosinophils Abs 0.0 0.0 - 0.4 x10(3)/ L [facility] Basophil % 0.1 % [facility] Baso Absolute 0.0 0.0 - 0.1 x10(3)/ L [facility] Immature Gran % 0.70 % [facility] Comment: Immature granulocytes(IG's)percentage and absolute count will include metamyelocytes, myelocytes, and promyelocytes. Blood smears from CBCs yielding IG's will be scanned manually for concordance. If this scan disagrees with the automated IG or if promyelocytes are noted, a manual differential will be performed. Immature Gran Absolute 0.14(H) 0.00 - 0.04 x10(3)/ L [facility] Blood 05/12/2024 4:45 AM EDT 05/12/2024 5:06 AM EDT Narrative Resulting Agency Comment Spec In Lab Carlotta Davis MD HEMATOLOGY OR DERABLES Performing Organization Address City/State/[facility] Co de Phone Number [facility] [place] [address] * (ABNORMAL) Hemogram (05/12/2024 4:45 AM EDT) White Blood Cell 19.7(H) 4.0 - 9.5 x10(3)/ L [facility] Red Blood Cell 3.58(L) 4.58 - 5.54 x10(6)/mc L [facility] Hemoglobin 10.9(L) 13.7 - 16.5 g/dL [facility] Hematocrit 33.1(L) 40.5 - 48.5 % [facility] Mean Cell Volume 92.5 82.9 - 93.1 fL [facility] Mean Cell Hemoglobin 30.4 27.5 - 32.1 pg [facility] Mean Cell Hemoglobin Concentration 32.9 32.0 - 35.7 g/dL [facility] Platelet 165 145 - 357 x10(3)/mc L [facility] RDW Standard Deviation 53.2(H) 36.0 - 45.0 fL [facility] RDW coefficient of variation 15.7(H) 11.4 - 13.8 % [facility] Mean Platelet Volume 12.1 7.6 - 12.9 fL [facility] NRBC% auto 0.0 % [facility] NRBC Absolute 0.000 0.000 - 0.000 x10(3)/mc L [facility] Blood 05/12/2024 4:45 AM EDT 05/12/2024 5:06 AM EDT Narrative Resulting Agency Comment Spec In Lab Carlotta Davis MD HEMATOLOGY OR DERABLES Performing Organization Address [facility] Co de Phone Number [facility] [place] [address] * Magnesium (05/12/2024 4:45 AM EDT) Magnesium 1.07 0.69 - 1.07 mmol/L [facility] Blood 05/12/2024 4:45 AM EDT 05/12/2024 5:06 AM EDT Narrative Resulting Agency Comment Spec In Lab Mary De La Fuente MD CHEMISTRY ORDERABL ES Performing Organization Address [facility] Co de Phone Number [facility] [place] [address] * Phosphorus (05/12/2024 4:45 AM EDT) Phosphorus 2.7 2.5 - 4.5 mg/dL [facility] Blood 05/12/2024 4:45 AM EDT 05/12/2024 5:06 AM EDT Narrative Resulting Agency Comment Spec In Lab Mary De La Fuente MD CHEMISTRY ORDERABL ES [facility] [place] [address] * (ABNORMAL) Basic Metabolic Panel (non-fasting) (05/12/2024 4:45 AM EDT) Glucose 156 65 - 199 mg/dL [facility] Comment:Diabetes: >=200 mg/d L plus symptoms Blood Urea Nitrogen 72(H) 10 - 20 mg/dL [facility] Creatinine 2.03(H) 0.80 - 1.50 mg/dL [facility] Sodium 135 135 - 145 mmol/L [facility] Potassium 4.5 3.5 - 5.0 mmol/L [facility] Comment: Please note: ??Patients with WBC >100,000 may have falsely elevated Potassium levels. ??For accurate Potassium quantification in these patients send serum separator tube (gold top) for subsequent determinations. ??Contact the Clinical Chemistry Laboratory if there are any questions. Chloride 101 98 - 107 mmol/L [facility] Carbon Dioxide 24 22 - 31 mmol/L [facility] Anion Gap 10 5 - 15 mmol/L [facility] Calcium 8.4(L) 8.5 - 10.5 mg/dL [facility] Est Glomerular Filtration Rate 35(L) >=60 mL/min/1. 73 m?? [facility] Comment: This patient's estimated GFR [...] MD CHEMISTRY ORDERABL ES Performing Organization Address City/[facility] Co de Phone Number [facility] [place] [address] * ANGY, legs, multiple levels (05/12/2024 3:22 AM EDT) VB Text Report Department: Vascular Surgery Lab Patient: [id number] (JOSSY SHANKS) CPT: 31444 Referring Physician: THO DICKSON ?? Phone: Indications: [...] Glucose, POC 201(H) 65 - 199 mg/dL [facility] Comment: Supplemental ranges: <140 mg/dL before meals <180 mg/dL all other times of the day Blood 05/11/2024 8:14 PM EDT 05/11/2024 8:14 PM EDT Treva Diaz MD POINT OF CARE TEST ORDERABLES [facility] [place] [address] * Vancomycin Level, Random (05/11/2024 8:10 PM EDT) Vancomycin, Random 21.7 mg/L [facility] Comment: This level is for determination of the patient's vancomycin engq-pkjxo-qqb-curve (AUC) value. Contact the inpatient pharmacy for interpretation. Blood 05/11/2024 8:10 PM EDT 05/11/2024 8:32 PM EDT Treva Diaz MD CHEMISTRY ORDERABL ES Performing Organization Address [facility]/ZIP Co de Phone Number [facility] [place] [address] * POCT Glucose (05/11/2024 4:34 PM EDT) Glucose, POC 197 65 - 199 mg/dL [facility] Comment: Supplemental ranges: <140 mg/dL before meals <180 mg/dL all other times of the day Blood 05/11/2024 4:34 PM EDT 05/11/2024 4:34 PM EDT Treva Diaz MD POINT OF CARE TEST ORDERABLES Performing Organization Address City/[facility]/ZIP Co de Phone Number [facility] [place] [address] * (ABNORMAL) POCT Glucose (05/11/2024 11:47 AM EDT) Glucose, POC 255(H) 65 - 199 mg/dL [facility] Comment: Supplemental ranges: <140 mg/dL before meals <180 mg/dL all other times of the day Blood 05/11/2024 11:4 7 AM EDT 05/11/2024 11:47 AM EDT Treva Diaz MD POINT OF CARE TEST ORDERABLES [facility] [place] [address] * (ABNORMAL) POCT Glucose (05/11/2024 6:57 AM EDT) Glucose, POC 200(H) 65 - 199 mg/dL [facility] Comment: Supplemental ranges: <140 mg/dL before meals <180 mg/dL all other times of the day Blood 05/11/2024 6:57 AM EDT 05/11/2024 6:57 AM EDT Treva Diaz MD POINT OF CARE TEST ORDERABLES [facility] [place] [address] * (ABNORMAL) Differential, Automated (05/11/2024 2:00 AM EDT) Neutrophil % 85.8 % [facility] Neutrophil Absolute 22.16(H) 1.70 - 6.10 x10(3)/mc L [facility] Lymph % 1.5 % [facility] Lymphocytes Abs 0.4(L) 0.9 - 3.2 x10(3)/mc L [facility] Monocyte % 4.9 % [facility] Monocyte Abs 1.3(H) 0.3 - 0.9 x10(3)/mc L [facility] Eos % 0.0 % [facility] Eosinophils Abs 0.0 0.0 - 0.4 x10(3)/ L [facility] Basophil % 0.1 % [facility] Baso Absolute 0.0 0.0 - 0.1 x10(3)/ L [facility] Immature Gran % 7.70 % [facility] Comment: Immature granulocytes(IG's)percentage and absolute count will include metamyelocytes, myelocytes, and promyelocytes. Blood smears from CBCs yielding IG's will be scanned manually for concordance. If this scan disagrees with the automated IG or if promyelocytes are noted, a manual differential will be performed. Immature Gran Absolute 1.98(H) 0.00 - 0.04 x10(3)/[facility] Blood 05/11/2024 2:00 AM EDT 05/11/2024 2:07 AM EDT Narrative Resulting Agency Comment Spec In Lab Carlotta Davis MD HEMATOLOGY OR DERABLES [facility] [place] [address] * (ABNORMAL) Hemogram (05/11/2024 2:00 AM EDT) White Blood Cell 25.8(H) 4.0 - 9.5 x10(3)/ L [facility] Red Blood Cell 3.64(L) 4.58 - 5.54 x10(6)/mc L [facility] Hemoglobin 10.9(L) 13.7 - 16.5 g/dL [facility] Hematocrit 32.5(L) 40.5 - 48.5 % [facility] Mean Cell Volume 89.3 82.9 - 93.1 fL [facility] Mean Cell Hemoglobin 29.9 27.5 - 32.1 pg [facility] Mean Cell Hemoglobin Concentration 33.5 32.0 - 35.7 g/dL [facility] Platelet 141(L) 145 - 357 x10(3)/mc L [facility] RDW Standard Deviation 51.2(H) 36.0 - 45.0 fL [facility] RDW coefficient of variation 15.6(H) 11.4 - 13.8 % [facility] Mean Platelet Volume 12.9 7.6 - 12.9 fL [facility] NRBC% auto 0.0 % [facility] NRBC Absolute 0.000 0.000 - 0.000 x10(3)/mc L [facility] Blood 05/11/2024 2:00 AM EDT 05/11/2024 2:07 AM EDT Narrative Resulting Agency Comment Spec In Lab Carlotta Davis MD HEMATOLOGY OR DERABLES Performing Organization Address City/[facility]/ZIP Co de Phone Number [facility] [place] [address] * Magnesium (05/11/2024 2:00 AM EDT) Magnesium 1.01 0.69 - 1.07 mmol/L [facility] Blood 05/11/2024 2:00 AM EDT 05/11/2024 2:07 AM EDT Narrative Resulting Agency Comment Spec In Lab Mary De La Fuente MD CHEMISTRY ORDERABL ES Performing Organization Address City/[facility]/ZIP Co de Phone Number [facility] [place] [address] * Phosphorus (05/11/2024 2:00 AM EDT) Phosphorus 4.0 2.5 - 4.5 mg/dL [facility] Blood 05/11/2024 2:00 AM EDT 05/11/2024 2:07 AM EDT Narrative Resulting Agency Comment Spec In Lab Mary De La Fuente MD CHEMISTRY ORDERABL ES [facility] [place] [address] * (ABNORMAL) Basic Metabolic Panel (non-fasting) (05/11/2024 2:00 AM EDT) Glucose 212(H) 65 - 199 mg/dL [facility] Comment:Diabetes: >=200 mg/d L plus symptoms Blood Urea Nitrogen 72(H) 10 - 20 mg/dL [facility] Creatinine 2.58(H) 0.80 - 1.50 mg/dL [facility] Comment:result rechecked-HN Sodium 136 135 - 145 mmol/L [facility] Potassium 4.7 3.5 - 5.0 mmol/L [facility] Comment: Please note: ??Patients with WBC >100,000 may have falsely elevated Potassium levels. ??For accurate Potassium quantification in these patients send serum separator tube (gold top) for subsequent determinations. ??Contact the Clinical Chemistry Laboratory if there are any questions. Chloride 100 98 - 107 mmol/L [facility] Carbon Dioxide 24 22 - 31 mmol/L [facility] Anion Gap 12 5 - 15 mmol/L [facility] Calcium 8.3(L) 8.5 - 10.5 mg/dL [facility] Est Glomerular Filtration Rate 26(L) >=60 mL/min/1. 73 m?? [facility] Comment: This patient's estimated GFR [...] MD CHEMISTRY ORDERABL ES Performing Organization Address [facility] de Phone Number [facility] [place] [address] * Vancomycin Level, Random (05/11/2024 2:00 AM EDT) Vancomycin, Random 21.4 mg/L [facility] Comment: This level is for determination of the patient's vancomycin tyri-kevep-ujf-curve (AUC) value. Contact the inpatient pharmacy for interpretation. Blood 05/11/2024 2:00 AM EDT 05/11/2024 2:07 AM EDT Mary De La Fuente MD CHEMISTRY ORDERABL ES Performing Organization Address [facility] Phone Number [facility] [place] [address] * (ABNORMAL) POCT Glucose (05/10/2024 11:40 PM EDT) Glucose, POC 230(H) 65 - 199 mg/dL [facility] Comment: Supplemental ranges: <140 mg/dL before meals <180 mg/dL all other times of the day Blood 05/10/2024 11:4 0 PM EDT 05/10/2024 11:40 PM EDT Treva Diaz MD POINT OF CARE TEST ORDERABLES Performing Organization Address [facility] Co de Phone Number [facility] [place] [address] * POCT Glucose (05/10/2024 4:09 PM EDT) Glucose, POC 189 65 - 199 mg/dL [facility] Comment: Supplemental ranges: <140 mg/dL before meals <180 mg/dL all other times of the day Blood 05/10/2024 4:09 PM EDT 05/10/2024 4:09 PM EDT Treva Diaz MD POINT OF CARE TEST ORDERABLES Performing Organization Address City/[facility]/ZIP Co de Phone Number [facility] [place] [address] * POCT Glucose (05/10/2024 12:11 PM EDT) Glucose, POC 185 65 - 199 mg/dL [facility] Comment: Supplemental ranges: <140 mg/dL before meals <180 mg/dL all other times of the day Blood 05/10/2024 12:1 1 PM EDT 05/10/2024 12:11 PM EDT Mary De La Fuente MD POINT OF CARE TEST ORDERABLES Performing Organization Address [facility] Co de Phone Number [facility] [place] [address] * Vancomycin Level, Random (05/10/2024 12:00 PM EDT) Vancomycin, Random 15.5 mg/L [facility] Comment: This level is for determination of the patient's vancomycin qkmd-jcugr-peh-curve (AUC) value. Contact the inpatient pharmacy for interpretation. Blood 05/10/2024 12:0 0 PM EDT 05/10/2024 12:21 PM EDT Tho Dickson MD CHEMISTRY ORDERABLES Performing Organization Address City/[facility]/ZIP Co de Phone Number [facility] [place] [address] * POCT Glucose (05/10/2024 8:09 AM EDT) Glucose, POC 195 65 - 199 mg/dL [facility] Comment: Supplemental ranges: <140 mg/dL before meals <180 mg/dL all other times of the day Blood 05/10/2024 8:09 AM EDT 05/10/2024 8:09 AM EDT Mary De La Fuente MD POINT OF CARE TEST ORDERABLES Performing Organization Address City/[facility]/ZIP Co de Phone Number [facility] [place] [address] * CK (05/10/2024 6:55 AM EDT) Creatine Kinase 58 0 - 200 unit/L [facility] Blood Venous Draw / Unknown 05/10/2024 6:55 AM EDT 05/10/2024 7:41 AM EDT Narrative Resulting Agency Comment Spec In Lab Emmanuel Corey DO CHEMISTRY ORDERABLES Performing Organization Address [facility] Co de Phone Number [facility] [place] [address] * (ABNORMAL) Phosphorus (05/10/2024 6:55 AM EDT) Phosphorus 5.1(H) 2.5 - 4.5 mg/dL [facility] Blood 05/10/2024 6:55 AM EDT 05/10/2024 6:59 AM EDT Narrative Resulting Agency Comment Spec In Lab Tho Dickson MD CHEMISTRY ORDERABLES Performing Organization Address [facility]/ZIP Co de Phone Number [facility] [place] [address] * (ABNORMAL) Basic Metabolic Panel (non-fasting) (05/10/2024 6:55 AM EDT) Glucose 193 65 - 199 mg/dL [facility] Comment:Diabetes: >=200 mg/d L plus symptoms Blood Urea Nitrogen 69(H) 10 - 20 mg/dL [facility] Creatinine 3.75(H) 0.80 - 1.50 mg/dL [facility] Sodium 128(L) 135 - 145 mmol/L [facility] Potassium 5.0 3.5 - 5.0 mmol/L [facility] Comment: Please note: ??Patients with WBC >100,000 may have falsely elevated Potassium levels. ??For accurate Potassium quantification in these patients send serum separator tube (gold top) for subsequent determinations. ??Contact the Clinical Chemistry Laboratory if there are any questions. Chloride 93(L) 98 - 107 mmol/L [facility] Carbon Dioxide 23 22 - 31 mmol/L [facility] Anion Gap 12 5 - 15 mmol/L [facility] Calcium 8.6 8.5 - 10.5 mg/dL [facility] Est Glomerular Filtration Rate 17(L) >=60 mL/min/1. 73 m?? [facility] Comment: This patient's estimated GFR [...] In Lab Tho Dickson MD CHEMISTRY ORDERABLES [facility] [place] [address] * Lactate, whole blood, send to lab ([facility]) (05/10/2024 6:55 AM EDT) Lactate WB 1.7 0.5 - 2.2 mmol/L [facility] Blood 05/10/2024 6:55 AM EDT 05/10/2024 7:00 AM EDT Narrative Resulting Agency Comment Spec In Lab Tho Dickson MD CHEMISTRY ORDERABLES [facility] [place] [address] * MRI Foot wwo Contrast Right (05/10/2024 5:51 AM EDT) WORKSTATION ID [id number] RAD Anatomical Region Laterality Modality Foot Right [...] who have questions please contact the health gericare aide that requested your imaging first. ? Narrative [...] patients who have questions please contactthe health gericare aide that requested your imaging first. Tho Dickson MD [facility] [place] ORDERABLES * Creatinine, urine, random (05/10/2024 4:15 AM EDT) Creatinine, Urine 106 mg/dL [facility] Urine 05/10/2024 4:15 AM EDT 05/10/2024 4:23 AM EDT Narrative Resulting Agency Comment Spec In Lab Tho Dickson MD URINE ORDERABLES Performing Organization Address [facility] Co de Phone Number [facility] [place] [address] * Sodium, urine, random (05/10/2024 4:15 AM EDT) Sodium, Urine <20 mmol/L [facility] Urine 05/10/2024 4:15 AM EDT 05/10/2024 4:23 AM EDT Narrative Resulting Agency Comment Spec In Lab Tho Dickson MD URINE ORDERABLES Performing Organization Address [facility]/ZIP Co de Phone Number [facility] [place] [address] * Urea nitrogen, urine, random (05/10/2024 4:15 AM EDT) Urea Nitrogen, Urine 580 mg/dL [facility] Urine 05/10/2024 4:15 AM EDT 05/10/2024 4:23 AM EDT Narrative Resulting Agency Comment Spec In Lab Tho Dickson MD URINE ORDERABLES Performing Organization Address [facility] Co de Phone Number [facility] [place] [address] * (ABNORMAL) Skin/Superficial Wound Culture Toe (05/10/2024 2:56 AM EDT) Skin/Superfic ial Wound Culture Rare mixed bacterial morphotypes suggestive of normal cutaneous armani including Rare Gram Negative Rods (A) [facility] Gram Stain Many Neutrophils seen Few Gram Positive Cocci seen (A) [facility] Organism Gram Negative Rods(A) [facility] Organism Gram Positive Cocci(A) [facility] Superficial Wound TOE STRUCTURE / Unknown 05/10/2024 2:56 AM EDT 05/10/2024 5:18 AM EDT Comment:Right toe wound Narrative Resulting Agency Comment Spec In Lab Tho Dickson MD MICROBIOLOGY - GENER AL ORDERABLES Performing Organization Address [facility]/ZIP Co de Phone Number [facility] [place] [address] * (ABNORMAL) Urinalysis without microscopic (05/10/2024 2:42 AM EDT) Glucose, Urine Dipstick Negative Negative mg/dL [facility] Protein, Urine Dipstick 30(A) Negative mg/dL [facility] Bilirubin, Urine Dipstick Negative Negative mg/dL [facility] Comment: Clinical correlation required for positive Urine Bilirubin results as false positive may occur with some drugs and drug related products. If a false positive is suspected a serum total bilirubin should be considered if clinically indicated. Urobilinogen, Urine Dipstick Normal Normal mg/dL [facility] pH, Urn (dipstick) 5.5 5.0 - 8.0 [facility] Blood, Urine Dipstick Large(A) Negative mg/dL [facility] Ketone, Urine Dipstick Negative Negative mg/dL [facility] Nitrite, Urine Dipstick Negative Negative [facility] Leukocytes, Urine Dipstick Small(A) Negative [facility] Appearance, Urine Dipstick Cloudy(A) Clear [facility] Specific [place] Urine Automated 1.017 1.005 - 1.030 [facility] Color, Urine Dipstick [place](A) Yellow [facility] Urine 05/10/2024 2:42 AM EDT 05/10/2024 2:57 AM EDT Narrative Resulting Agency Comment Spec In Lab Tho Dickson MD URINE ORDERABLES [facility] [place] [address] * XR Chest One View (05/10/2024 2:37 AM EDT) WORKSTATION ID [id number] RAD Anatomical Region Laterality Modality Chest N/A Digital Radiogra phy Impressions 05/10/2024 3:27 AM EDT Bibasilar atelectasis. Thank you for letting us participate in the care of this patient. ??If you are a health care provider and have any questions regarding this report, please contact the number below. ??For patients who have questions please contact the health gericare aide that requested your imaging first. ? Narrative [...] patients who have questions please contactthe health gericare aide that requested your imaging first. Tho Dickson MD IMG DX ORDERABLES * Blood culture (05/10/2024 2:32 AM EDT) Blood Culture No growth at 5 days. [facility] Blood STRUCTURE OF RIGHT HAND / Unknown 05/10/2024 2:32 AM EDT 05/10/2024 4:17 AM EDT Narrative Resulting Agency Comment Spec In Lab Tho Dickson MD MICROBIOLOGY - BLOOD ORDERABLES Performing Organization Address [facility] Co de Phone Number [facility] [place] [address] * (ABNORMAL) POCT Glucose (05/10/2024 2:30 AM EDT) Pathologist [facility] Glucose, POC 201(H) 65 - 199 mg/dL [facility] Comment: Supplemental ranges: <140 mg/dL before meals <180 mg/dL all other times of the day Blood 05/10/2024 2:30 AM EDT 05/10/2024 2:30 AM EDT Tho Dickson MD POINT OF CARE TEST O RDERABLES Performing Organization Address [facility] Co de Phone Number [facility] [place] [address] * Vancomycin Level, Random (05/10/2024 2:20 AM EDT) [facility] Vancomycin, Random 26.9 mg/L [facility] Comment: This level is for determination of the patient's vancomycin xapq-jxpvo-aqx-curve (AUC) value. Contact the inpatient pharmacy for interpretation. Blood Venous Draw / Unknown 05/10/2024 2:20 AM EDT 05/10/2024 2:38 AM EDT Tho Dickson MD CHEMISTRY ORDERABLES Performing Organization Address [facility] Co de Phone Number [facility] [place] [address] * Scan, Peripheral Blood (05/10/2024 2:20 AM EDT) Pathologist [facility] Plat estimate Normal [facility] RBC Morphology Abnormal [facility] Ovalocytes 1-5 /HPF [facility] [place] Cells 1-5 /HPF [facility] Plat, Giant Less than 1 /HPF [facility] Blood 05/10/2024 2:20 AM EDT 05/10/2024 2:36 AM EDT Narrative Resulting Agency Comment Spec In Lab Anita Camacho MD HEMATOLOGY ORDERABLE S [facility] [place] [address] * Type and Screen Validity (05/10/2024 2:20 AM EDT) Pathologist [facility] T&S only valid at [facility]ORATORY Comment:This Type and Screen result is only valid at the [facility] Blood 05/10/2024 2:20 AM EDT 05/10/2024 2:49 AM EDT Narrative Resulting Agency Comment Spec In Lab Anita Camacho MD BLOOD BANK LAB ORDER ANGELIQUE Performing Organization Address City/[facility]/ZIP Co de Phone Number [facility] [place] [address] * ABORH Recheck Status (05/10/2024 2:20 AM EDT) AB[facility] Recheck Order Order Placed [facility] ABORH Type Recheck Completed [facility] Blood 05/10/2024 2:20 AM EDT 05/10/2024 2:49 AM EDT Narrative Resulting Agency Comment Spec In Lab Anita Camacho MD BLOOD BANK LAB ORDER ANGELIQUE [facility] [place] [address] * (ABNORMAL) Differential, Automated (05/10/2024 2:20 AM EDT) Neutrophil % 89.2 % [facility] Neutrophil Absolute 25.39(H) 1.70 - 6.10 x10(3)/ L [facility] Lymph % 1.2 % [facility] Lymphocytes Abs 0.4(L) 0.9 - 3.2 x10(3)/ L [facility] Monocyte % 2.9 % [facility] Monocyte Abs 0.8 0.3 - 0.9 x10(3)/[facility] Eos % 0.0 % [facility] Eosinophils Abs 0.0 0.0 - 0.4 x10(3)/[facility] Basophil % 0.2 % [facility] Baso Absolute 0.1 0.0 - 0.1 x10(3)/[facility] Immature Gran % 6.50 % [facility] Comment: Immature granulocytes(IG's)percentage and absolute count will include metamyelocytes, myelocytes, and promyelocytes. Blood smears from CBCs yielding IG's will be scanned manually for concordance. If this scan disagrees with the automated IG or if promyelocytes are noted, a manual differential will be performed. Immature Gran Absolute 1.85(H) 0.00 - 0.04 x10(3)/[facility] Blood 05/10/2024 2:20 AM EDT 05/10/2024 2:36 AM EDT Narrative Resulting Agency Comment Spec In Lab Anita Camacho MD HEMATOLOGY ORDERABLE S [facility] [place] [address] * (ABNORMAL) Hemogram (05/10/2024 2:20 AM EDT) White Blood Cell 28.5(H) 4.0 - 9.5 x10(3)/[facility] Red Blood Cell 3.83(L) 4.58 - 5.54 x10(6)/[facility] Hemoglobin 11.4(L) 13.7 - 16.5 g/dL [facility] Hematocrit 34.5(L) 40.5 - 48.5 % [facility] Mean Cell Volume 90.1 82.9 - 93.1 fL [facility] Mean Cell Hemoglobin 29.8 27.5 - 32.1 pg [facility] Mean Cell Hemoglobin Concentration 33.0 32.0 - 35.7 g/dL [facility] Platelet 135(L) 145 - 357 x10(3)/mc L [facility] RDW Standard Deviation 51.9(H) 36.0 - 45.0 fL [facility] RDW coefficient of variation 15.6(H) 11.4 - 13.8 % [facility] Mean Platelet Volume 12.8 7.6 - 12.9 fL [facility] NRBC% auto 0.0 % [facility] NRBC Absolute 0.000 0.000 - 0.000 x10(3)/mc L [facility] Blood 05/10/2024 2:20 AM EDT 05/10/2024 2:36 AM EDT Narrative Resulting Agency Comment Spec In Lab Anita Camacho MD HEMATOLOGY ORDERABLE S [facility] [place] [address] * (ABNORMAL) Hemoglobin A1c (05/10/2024 2:20 AM EDT) Hemoglobin A1c 5.9(H) 4.3 - 5.6 % [facility] Comment: Reference Range: 4.3 - [...] Mellitus, Diabetes Care 2013; 36: Suppl. 1, Y67-13 Estimated Average Glucose See note mg/dL [facility] Comment: Estimated Average Glucose not appropriate for patients over 70 years of age. Blood 05/10/2024 2:20 AM EDT 05/10/2024 2:36 AM EDT Narrative Resulting Agency Comment Spec In Lab Tho Dickson MD CHEMISTRY ORDERABLES Performing Organization Address [facility] Co de Phone Number [facility] [place] [address] * Hepatic Function Panel (05/10/2024 2:20 AM EDT) Protein, Total 7.6 6.1 - 8.0 g/dL [facility] Albumin 3.3 3.2 - 5.2 g/dL [facility] Aspartate Aminotransferase 21 0 - 39 unit/L [facility] Alanine Aminotransferase 19 0 - 55 unit/L [facility] Alkaline Phosphatase 42 40 - 130 unit/L [facility] Bilirubin, Total 0.5 0.2 - 1.3 mg/dL [facility] Bilirubin, Direct 0.2 0.0 - 0.3 mg/dL [facility] Blood 05/10/2024 2:20 AM EDT 05/10/2024 2:36 AM EDT Narrative Resulting Agency Comment Spec In Lab Tho Dickson MD CHEMISTRY ORDERABLES Performing Organization Address [facility] Co de Phone Number [facility] [place] [address] * (ABNORMAL) Phosphorus (05/10/2024 2:20 AM EDT) Phosphorus 4.6(H) 2.5 - 4.5 mg/dL [facility] Blood 05/10/2024 2:20 AM EDT 05/10/2024 2:36 AM EDT Narrative Resulting Agency Comment Spec In Lab Tho Dickson MD CHEMISTRY ORDERABLES Performing Organization Address City/[facility]/ZIP Co de Phone Number [facility] [place] [address] * Magnesium (05/10/2024 2:20 AM EDT) Magnesium 0.85 0.69 - 1.07 mmol/L [facility] Blood 05/10/2024 2:20 AM EDT 05/10/2024 2:36 AM EDT Narrative Resulting Agency Comment Spec In Lab Tho Dickson MD CHEMISTRY ORDERABLES Performing Organization Address [facility] Co de Phone Number [facility] [place] [address] * (ABNORMAL) Basic Metabolic Panel (non-fasting) (05/10/2024 2:20 AM EDT) Pathologist [facility] Glucose 196 65 - 199 mg/dL [facility] Comment:Diabetes: >=200 mg/d L plus symptoms Blood Urea Nitrogen 71(H) 10 - 20 mg/dL [facility] Creatinine 3.94(H) 0.80 - 1.50 mg/dL [facility] Sodium 129(L) 135 - 145 mmol/L [facility] Potassium 5.3(H) 3.5 - 5.0 mmol/L [facility] Comment: Please note: ??Patients with WBC >100,000 may have falsely elevated Potassium levels. ??For accurate Potassium quantification in these patients send serum separator tube (gold top) for subsequent determinations. ??Contact the Clinical Chemistry Laboratory if there are any questions. Chloride 93(L) 98 - 107 mmol/L [facility] Carbon Dioxide 24 22 - 31 mmol/L [facility] Anion Gap 12 5 - 15 mmol/L [facility] Calcium 8.5 8.5 - 10.5 mg/dL [facility] Est Glomerular Filtration Rate 16(L) >=60 mL/min/1. 73 m?? [facility] Comment: This patient's estimated GFR [...] Dickson MD CHEMISTRY ORDERABLES Performing Organization Address [facility] Phone Number [facility] [place] [address] * (ABNORMAL) Prothrombin Time (05/10/2024 2:20 AM EDT) Prothrombin Time 27.9(H) 9.4 - 12.5 sec [facility] International Normalization Ratio 2.5 [facility] Comment: An INR <2.0 indicates [...] MD HEMATOLOGY ORDERABLE S Performing Organization Address [facility] Co de Phone Number [facility] [place] [address] * Type and screen ([facility]/TARA) (05/10/2024 2:20 AM EDT) ABORH Type O POSITIVE [facility] Patient BB History Not Found [facility] Expires at [id number] on: 05-13-2024 [facility] Ab Screen Interp Negative [facility] Blood 05/10/2024 2:20 AM EDT 05/10/2024 2:20 AM EDT Narrative [facility] - 05/10/2024 2:20 AM EDT This Type and Screen result is only valid at the [facility] Resulting Agency Comment Spec In Lab Tho Dickson MD BLOOD BANK LAB ORDER ANGELIQUE [facility] [place] [address] * (ABNORMAL) Lactate, whole blood, send to lab ([facility]) (05/10/2024 2:20 AM EDT) Lactate WB 2.3(H) 0.5 - 2.2 mmol/L [facility] Blood 05/10/2024 2:20 AM EDT 05/10/2024 2:36 AM EDT Narrative Resulting Agency Comment Spec In Lab Tho Dickson MD CHEMISTRY ORDERABLES Performing Organization Address City/[facility]/ZIP Co de Phone Number [facility] [place] [address] documented in this encounter Visit Diagnoses Not [...] HOURS, First dose (after last modification) on [place] 05/18/24 at 1430, Until Discontinued, Routine 0258 [...] - Reason: Transfer to a Procedural area)175 ([facility] Unhold - Provider: Admin Adt) midazolam (pf) [...] Until Sun05/23/24 at 1815, Pain, Routine 1318 ([facility] Hold - Provider: Admin Adt - Reason: [...] documented as of this encounter Care Teams Woods Rider Relationship 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
--- OUTSIDE RECORDS SUMMARY | 2024-06-03 20:38 | XMS_ITS | Encounter Summary ---
Author Organization [facility] [place] [address] Care Team Providers Care Dyeing Machine Feeder Name Role Phone None Primary Care Provider [...] 10:30 AM EDT Office [place] [address] Elkin Garcia MD [facility] [address] [place] [address] documented as of this encounter Visit Diagnoses Not on filedocumented in this encounter Care Teams Dyeing Machine Feeder Relationship 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
--- OUTSIDE RECORDS SUMMARY | 2024-06-03 20:39 | XMS_ITS | Encounter Summary ---
Author Organization [facility] Address [facility] [place] [address] Care Team Providers Care Command And Control Officer Name Role Phone None Primary Care Provider Unavailabl e Encounter Details Date Type Department Care Team (Late st Contact Info) Description 2024 9:25 PM EDT Ancillary Procedure [place] [phone] Tho Reyes MD [facility] [place] [address] Social History Tobacco Use Types Packs/Day Years Used Date Smoking Tobacco: Former Smokeless Tobacco: Never [facility] Inpatient Questions Answer Date Recorded Does Anyone [...] 10:30 AM EDT Office [place] [phone] Elkin Garcia MD [facility] [place] [address] documented as of this encounter Procedures Procedure [...] FILM LIBRARY ORD ERABLES Performing Organization Address City/State/[facility] Co de Phone Number [place], [place] documented in this encounter Visit Diagnoses Not on filedocumented in this encounter Care Teams Command And Control Officer Relationship 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
--- OUTSIDE RECORDS SUMMARY | 2024-06-03 20:39 | XMS_ITS | Encounter Summary ---
[place] [address] Care Team Providers Care Account Processor Name Role Phone None Primary Care Provider Unavailabl e Reason for Visit * Auth/Cert (Routine) Specialty Diagnoses / Procedures Referred By Contac t Referred To Contact Diagnoses Septic shock septiic shock Procedures ER Tho Aquino MD [facility] [place] [address] [facility] Referral ID Status Reason Start Date Expiration Date Visits Re quested Visits Authorized [id number] 1 1 Encounter Details Date Type Department Care Team (Late st Contact Info) Description 05/14/2024 10:00 AM EDT - 05/14/2024 11:24 AM EDT Surgery [place] [id number] Elkin Garcia MD [facility] [place] [address] AMPUTATION, TRANSMETATARSAL TOE, ONE TOE (WRVU 6.64) Social History Tobacco Use Types Packs/Day Years Used Date Smoking Tobacco: Former Cigarettes 14 0.6 S tarted: 2023 Smokeless Tobacco: Never Tobacco Cessation:Counseling Given: Not Answered Alcohol Use Standard Drinks/Week Comments Yes 0 (1 standard drink = 0.6 oz pur e alcohol) 3-4 PER [facility] Inpatient Questions Answer Date Recorded Does [...] Jossy Shanks Patient Age: 69 y.o. Language: Cymraes Race: White Ethnicity: Not nor Admit date: [...] please contact your inpatient physician through the [facility] Rapier Insertion Loom Fixer . Issues afterhours and on weekends will [...] home oxygen, HFpEF, HTN who presented to [facility] for rt LE cellulitis, transferred to [facility] for septic shock. At end of March he dropped cylinder block on rt foot, bleeding and painful. Kept bandaged and sock on it, same sock on it for the last week, reports sock became fused to wound. Denies paresthesia. Wasable to walk w/out difficulty. In last several days erythema and edema spread upper Rt LE to knee. Fevers & chills for last 24hrs. Ossian lightheaded, weak, & couldn't get out of [...] prior to OSH departure. On arrival to [facility]: HR 96, o2 sat mid 90s on [...] care, the same day as transfer to [facility]. On the general medicine floor, he was [...] border dressing. (Melgisorb Ag 6x6 PS # [id number]) (Melgisorb Ag 4x4 PS # [id number]) Sacrum/ischium: open to air, utilize Z-guard if [...] 05/10/2024 2:37 AM) Result Value WORKSTATION ID [id number] Impression Bibasilar atelectasis. Thank you for letting us participate in the care of this patient. If you are a health care provider and have any questions regarding this report, please contact the number below. For patients who have questions please contact the health health care legal assistant that requested your imaging first. Foot wwo Contrast Right (Exam End: 05/10/2024 5:51 AM) Result Value WORKSTATION ID [id number] Impression 1. Soft tissue irregularity of the [...] who have questions please contact the health health care legal assistant that requested your imaging first. Retroperitoneal Complete (Exam End: 05/20/2024 10:36 AM) Result Value WORKSTATION ID [id number] Impression 1. Very limited exam secondary to [...] who have questions, please contact the health health care legal assistant that requested your imaging first. Teofilo Ruiz, Staff Physician Electronically Signed Final Report 05/20/2024 11:36 am Pending Studies and Lab Data: Discharge Conditions/Prognosis: s/p Left 2nd toe amputation, recovering, requiring rehab. Back to baseline. Discharge to: [facility] Updated Allergies/ADRs: No Known Allergies [...] Center 06/03/2024 2:00 PM Lu Mcfarland APRN [facility] ID 5C [facility] 06/05/2024 4:00 PM Elkin Garcia MD [facility] ORTH 3C [facility] Your Discharge Medication List Your Medications New [...] as much as possible. Call your doctor ([phone]) if you develop: Fever greater than 100.5 Severe nausea or vomiting Increasing pain that is not controlled by pain medications Increasing redness, swelling, or drainage from incisions Change in sensation FOLLOW-UP APPOINTMENTS: 1. You will have follow-up appointments at [facility] as indicated below in Future Appointment and Orders. 2. You will need to have x-rays prior to your follow-up appointment listed below. Please come to Radiology, desk 3T, 1 hour BEFORE that appointment for these x-rays. Future Appointments Date Time Provider Department Center 06/03/2024 2:00 PM Lu Mcfarland APRN [facility] ID 5C [facility] 06/05/2024 4:00 PM Elkin Garcia MD [facility] ORTH 3C [facility] If you have questions or concerns: Sunday [...] the day after the procedure, use an epjy-xej-odsfckb spray to numb your throat. Sucking on [...] occurs, please contact your Doctor. Please call [phone] before 8pm Mon-Fri with problems, questions or concerns. If you call after 8pm or on weekends, call the Hospital at [phone] and ask to speak to the Supervisor [employer] online marketing strategist and the methane gas collection system operator will contact that person for you. When should you call for help? Call 250 anytime you think you may need emergency [...] any problems. Where can you learn more? [facility] View your After Visit Summary and more online at [email or web address] If you would like to provide feedback about your hospital experience, please call the Office of Patient and Family Relations at . If you have received this After Visit Summary in error, please immediately return it in person to the department, or notify the [facility] Privacy Office by calling toll free at between the hours of 8AM and 5PM to arrange for our retrieval of the documents at no cost to you. Content Version: 12.2 ?? 4358-6027 [employer]. Care instructions adapted under license by [facility]. If you have questions about a medical condition or this instruction, always ask your healthcare professional. [employer] disclaims any warranty or liability for your [...] is during regular working hours, please call [phone]. If it is after 5 pm or a weekend or holiday, call [phone] and ask for the Sole Ruffer online marketing strategist for Interventional Radiology. You have received medication [...] PM Lu Mcfarland APRN Infectious Disease at [facility] Arrive at: Printmaker Area 5C [phone] 06/05/2024 4:00 PM Elkin Garcia MD Orthopaedics at [facility] Arrive at: Printmaker Area 3C [phone] Future Orders Complete By Expires OPAT: Order / Recommendation for Post Discharge IV Antibiotic Management [NRL480 CPT(R)] As directed Process Instructions: If no progress note charted, please enter Clinical details in comments. Scheduling Instructions: Comments: - If this order was signed greater than 72 hours prior to [facility] discharge, please call to confirm the accuracy of this order. Please Fax all results to: OPAT Program Infectious Disease Section [facility] [place], [place] [address] FAX: - After hours, please contact the Infectious Disease Physician online marketing strategist at . - Line care instructions - see flush/heparin orders. Facilities may follow organizational policies/practices regarding heparin. - care home for medication administration/field superintendent and catheter care/maintenance authorized. HD Line care [...] every Sunday fax results to OPAT at [phone]. Please draw labs off PICC line. Please see OPAT order for lab draw details. Please RN visit for IV ABX teaching and ongoing assessment. [facility] for Medication Administration/Hookup and catheter care/maintenance: - Teach Patient/Caregiver goals/self-monitoring/therapy administration to independence per the Nursing Care Plan. - care home visit frequency; initial, weekly and 2 PRN [...] 05/20/2024 11:36 am) PATIENT INFO: ID #: [id number].: [id number] (69 yrs)(M) Name: JOSSY SHANKS Visit Date: 05/20/2024 10:34 am PERFORMED BY: Attending: Teofilo Ruiz MD Resident: Trinidad Light MD Performed By: Lulu Shin RDMS Referred By: SABA SPEARS Location: [place] SERVICE(S) PROVIDED: URETRO - Retroperitoneal Complete - [id number] INDICATIONS: CKD, increase BUN TECHNIQUE/SCAN QUALITY: Scan [...] patients whohave questions, please contact the health health care legal assistant that requested your imaging first. Teofilo Ruiz, Staff Physician Electronically Signed Final Report 05/20/2024 11:36 am My clinical question: Patient to establish for CKD management Do not type below here [id number]_CKD Questions: My question or request is: See comment Provider Contact Information: None None None Discharge References/Attachments Low Phosphorus Foods: General Info (Cymraes) Low Potassium Foods: General Info (Cymraes) documented in this encounter Discharge Instructions * [...] the day after the procedure, use an hdoo-olh-vzozjdr spray to numb your throat. Sucking on [...] occurs, please contact your Doctor. Please call [phone] before 8pm Mon-Fri with problems, questions or concerns. If you call after 8pm or on weekends, call the Hospital at [phone] and ask to speak to the Supervisor [employer] online marketing strategist and the methane gas collection system operator will contact that person for you. [...] any problems. Where can you learn more? [facility] View your After Visit Summary and more online at [email or web address] If you would like to provide feedback about your hospital experience, please call the Office of Patient and Family Relations at . If you have received this After Visit Summary in error, please immediately return it in person to the department, or notify the [facility] Privacy Office by calling toll free at between the hours of 8AM and 5PM to arrange for our retrieval of the documents at no cost to you. Content Version: 12.2 ?? [phone] [employer]. Care instructions adapted under license by [facility]. If you have questions about a medical condition or this instruction, always ask your healthcare professional. [employer] disclaims any warranty or liability for your [...] is during regular working hours, please call [phone]. If it is after 5 pm or a weekend or holiday, call [phone] and ask for the Sole Ruffer online marketing strategist for Interventional Radiology. You have received medication [...] Center 06/03/2024 2:00 PM Lu Mcfarland APRN [facility] ID 5C [facility] 06/05/2024 4:00 PM Elkin Garcia MD [facility] ORTH 3C [facility] Your Discharge Medication List Your Medications New [...] as much as possible. Call your doctor ([phone]) if you develop: Fever greater than 100.5 Severe nausea or vomiting Increasing pain that is not controlled by pain medications Increasing redness, swelling, or drainage from incisions Change in sensation FOLLOW-UP APPOINTMENTS: 1. You will have follow-up appointments at [facility] as indicated below in Future Appointment and Orders. 2. You will need to have x-rays prior to your follow-up appointment listed below. Please come to Radiology, desk 3T, 1 hour BEFORE that appointment for these x-rays. Future Appointments Date Time Provider Department Center 06/03/2024 2:00 PM Lu Mcfarland APRN [facility] ID 5C [facility] 06/05/2024 4:00 PM Elkin Garcia MD [facility] ORTH 3C [facility] If you have questions or concerns: Sunday through Sunday, 8 AM - 5 PM, please call Dr. Saba Spears MD's office at . If it is after 5 PM, the weekend, or holidays, please call and ask to speak with theOrthopedic resident on-call. * Attachments The following attachments cannot be sent through Care Everywhere. * Low Phosphorus Foods: General Info (Cymraes) * Low Potassium Foods: General Info (Cymraes) documented in this encounter Medications at Time [...] spent >30 minutes (Day of Discharge Code 85604) involved in the final examination of the patient, discussion of the hospital stay, instructions for continuing care to all relevant caregivers, and preparation of discharge records, prescriptions and referral forms. Plans Discharge to [facility] rehab Follow-up scheduled with ID, ortho, provider at [facility] Please see the Discharge Summary for complete details of any medication changes and additional plans. * Yg Jaffe - 05/23/2024 2:44 PM EDT Office of Care Management(OCM)/Event Specialist Product Demonstrator(RS) Patient Name: Jossy Shanks : 1955 Patient has been offered a SNF bed at [phone]. [facility] arranged for a BLS transport at 1530. Ambulance will need: Medicare ambulance form completed and signed (MD or Oceanography Professor) Copy of patient demographics [place] Out of Hospital DNR/DNI order, if active No MD to MD report necessary. Please call Nursing Report to , ask for supervisor wet room. Info to accompany patient: Narcotic Prescriptions Copies of Medication Administration Records and IV sheets for past two weeks. Plan: Event Specialist Product Demonstrator will be available to the patient and Oceanography Professor for further assistance. Patient to discharge to: [facility] [address] [place] [address] Yg Jaffe Event Specialist Product Demonstrator * Shirley Samuel RN - 05/23/2024 12:05 PM EDT Physician Certification Statement for Non-Emergency Ambulance Services Section I - General Information Jossy Spivey Rimma 1955 Medicare Number: n/a Transport Date: 05/23/2024 (PCS is valid for round trips on this date and for all repetitive trips in the 60-day range as noted below.) Origin: [facility] Destination: [facility] Is the patient's stay [...] van (i.e. seated during transport, without medical practitioners or monitoring?): No 4) In addition to [...] the Centers of Medicare and Medicaid Services ([facility]) to support the determination of medical necessity [...] who have questions, please contact the health health care legal assistant that requested your imaging first. Teofilo Ruiz, [...] who have questions please contact the health health care legal assistant that requested your imaging first. Chest One View Final Result Bibasilar atelectasis. Thank you for letting us participate in the care of this patient. If you are a health care provider and have any questions regarding this report, please contact the number below. For patients who have questions please contact the health health care legal assistant that requested your imaging first. SCOPY: Reports [...] with them as documented. Tl Steele MD [facility] Gastroenterology * Irene Bravo RN - 05/22/2024 [...] Zhao RN - 05/22/2024 12:47 PM EDT Electronic Masking System Operator spoke with JACKIE Nuñez from Endo regarding [...] (either PRN or weekly) [] Other * uL Mcfarland APRN - 05/22/2024 8:47 AM EDTSummary: [...] with PT - hoping to go to [facility] today Meds: pantoprazole 40 mg Intravenous BID [...] shoe, c/w pt - Bed ready at [facility] #IDDM Home regiment: 1.2mg liraglutide qd, [...] upcoming EGD, and availability of bed at [facility]. -ordered T&S in case continues to [...] Medicine Hospital Medicine Red Team - Pager [phone] Associated attestation - Saba Spears MD - [...] will transfuse and monitor response. Dispo to [facility] for rehab pending Hgb stability and EGD. I have examined the patient myself and personally reviewed all studies. In addition, I certify thatI am a D-H credentialed attending provider with admitting privileges and that the patient meets or has met medical necessity to require an inpatient IPI level of care meeting a minimum of two midnights or is on the [facility] inpatient only procedure list (status C) due to: OM requiring IV abx * Lazaro Aaron, MEDICAL CENTER REPRESENTATIVE - 05/21/2024 4:05 PM EDT Physical Therapy [...] discharge to swing bed rehab facility vs fdc facility once medically ready for hospital discharge. Pt will continue to benefit from skilled physical therapy while in the hospital in order to maximize independence and safety with functional mobility and achieve therapeutic goals. Discharge Recommendations: Based on current findings- swing bed rehabilitation facility, fdc facility Discharge recommendation is based on the [...] with stable vital signs. Total Time: 34 (3025-3050) minutes. TAx2 Lazaro Aaron PTA Pager: [phone] Physical Therapy Inpatient Rehabilitation Department * Penny [...] decreased insight into deficits Vision: corrective lenses time analysis clerk Endurance: decreased activity tolerance Vitals: Stable on [...] with activities of daily living. Discharge Recommendation: fdc facility, swing bed rehabilitation facility Equipment Recommendations: [...] 2-3 times/wk Total Minutes, Occupational Therapy: 40 ([facility] x3 ([phone])) Pager: [phone] Penny Rodriguez OT Occupational Therapy Rehabilitation Department [...] of : 1955 AGE: 69 y.o. Address: [address] [place], [place] [id number] (home) Mobile: Telephone Information: Referring Provider: Anna [...] Galvan MD - 05/21/2024 6:30 AM EDT [facility] Medicine - Red Team Inpatient Progress [...] on Xarelto Were holding lasix iso pre-renal FSIH, resumed Resumed home dose carvedilol 25 BID [...] Medicine Hospital Medicine Red Team - Pager [phone] Associated attestation - Saba Spears MD - [...] mid 7s. Appreciate GI consult. Dispo to [facility] pending Hgb and EGD. I have examined the patient myself and personally reviewed all studies. In addition, I certify thatI am a D-H credentialed attending provider with admitting privileges and that the patient meets or has met medical necessity to require an inpatient IPI level of care meeting a minimum of two midnights or is on the [facility] inpatient only procedure list (status C) due [...] Galvan MD - 05/20/2024 6:20 AM EDT [facility] [...] Pip-tazo and vanc c/w CTX Planning for [facility] central line, instead of PICC [...] [facility] Medicine Red Team - Pager [phone] Associated attestation - Saba Spears MD - [...] discharge to swing bed rehab facility vs fdc facility once medically ready for hospital discharge. Pt will continue to benefit from skilled physical therapy while in the hospital in order to maximize independence and safety with functional mobility and achieve therapeutic goals. Discharge Recommendations: Based on current findings- swing bed rehabilitation facility, fdc facility Discharge recommendation is based on the [...] Ho PT, Doctor of Physical Therapy Pager: [phone] Physical Therapy Inpatient Rehabilitation Department * Rebeca [...] decreased insight into deficits Vision: corrective lenses time analysis clerk Endurance: decreased activity tolerance Vitals: Stable on [...] with activities of daily living. Discharge Recommendation: fdc facility, swing bed rehabilitation facility Equipment Recommendations: [...] times/wk Total Minutes, Occupational Therapy: 47 Pager: [phone] Rebeca Moeller OT Occupational Therapy Rehabilitation Department [...] Medicine Hospital Medicine Red Team - Pager [phone] Associated attestation - Saba Spears MD - [...] of two midnights or is on the [facility] inpatient only procedure list (status C) due [...] for a hospital day 9 nutrition evaluation. Electronic Masking System Operator met with pt at bedside. Pt saidhe [...] unless consulted in the interim. Julissa Weathers Evp General Counsel * Mihaela Galvan MD - 05/18/2024 7:20 AM EDT [facility] Medicine - Red Team Inpatient Progress [...] [facility] Medicine Red Team - Pager [phone] Associated attestation - Saba Spears MD - [...] of two midnights or is on the [facility] inpatient only procedure list (status C) due [...] Harrison MD - 05/17/2024 6:28 AM EDT [facility] Red Team Inpatient Progress Note ID: Jossy [...] [facility] Medicine Red Team - Pager [phone] Associated attestation - Saba Spears MD - [...] EDT Physical Therapy Evaluation Patient profile: Jossy Shansk is a 69 y.o. male admitted on [...] 6.64) performed by Elkin Garcia MD at [facility] OR Active Non-Hospital Problems Diagnosis [...] admission to next 72h) Start Ordered 05/14/24 6142 Weight bearing status UNTIL DISCONTINUED Process Instructions: [...] [place] PT, Doctor of Physical Therapy Pager: [phone] Physical Therapy Inpatient Rehabilitation Department * Emmanuel [...] History: Housing: lives in a camper in [facility] Occupation: Former [employer], retired in 2016 [...] Component Value - Date/Time MRSA PCR Screen ([facility]/CGP/APD/NLH) [[id number]] Collected: 05/15/24 1615 Lab Status: Final result Specimen: Nasopharyngeal Swab Updated: 05/15/242012 MRSA Result Negative MRSA Interp -- Methicillin-resistant Staphylococcus aureus (MRSA) is NOT DETECTED The MRSA target DNA sequences (mec and SCC) were not detected within the acceptable ranges using the Xpert MRSA NxG on the GeneXpert Dx System ([employer]). This suggests the absence of MRSA in the patient specimen submitted for testing. This test is cleared by the U.S. Food and Drug Administration for clinical use and its performance characteristics have been verified by the [facility] at [facility]. This result does not rule out the presence of any other organisms. Rare false negative results may occur if MRSA is present at low concentrations with much higher concentrations of other organisms including MRSE or S. aureus with an empty SCC cassette. Comment: [VERIFIED DATE]05.15.24 Verified By:Lupe Jensen (Electronic Signature) Tissue Culture, Aerobic & Anaerobic Toe [[id number]] (Abnormal) Collected: 05/14/24 1133 Lab Status: Preliminary result Specimen: Toe Updated: 05/15/24 1212 Tissue culture [[id number]] (Abnormal) Collected: 05/14/24 1133 Lab Status: Preliminary result Specimen: Toe Updated: 05/15/24 1212 Tissue Culture No growth to date. Gram Stain -- Few Neutrophils seen Rare Gram Positive Cocci in pairs seen Results called to and read back by Dr. Mihaela Galvan 05/14/24 14:57:00 Organism Gram Positive Cocci in pairs Anaerobic Culture [[id number]] Collected: 05/14/24 1133 Lab Status: Preliminary result Specimen: Toe Updated: 05/15/24 1124 Anaerobic Culture No anaerobic organisms isolated to date Blood culture [[id number]] Collected: 05/10/24 0232 Lab Status: Final result Specimen: Blood from Hand, Right Updated: 05/15/24 0701 Blood Culture No growth at 5 days. Skin/Superficial Wound Culture Toe [[id number]] (Abnormal) Collected: 05/10/24 0256 Lab Status: Final [...] follow. Please page ID Red team (pager [phone]) with questions or concerns. Emmanuel Corey, DO Internal Medicine PGY-2 Pager: [phone] Epic Chat 05/16/2024 Associated attestation - Rodriguez [...] Intake/Output Summary (Last 24 hours) at 05/16/2024 0672 Last data filed at 05/16/2024 0355 Gross [...] Component Value - Date/Time MRSA PCR Screen ([facility]/CGP/APD/NLH) [[id number]] Collected: 05/15/24 1615 Lab Status: Final result Specimen: Nasopharyngeal Swab Updated: 05/15/242012 MRSA Result Negative MRSA Interp -- Methicillin-resistant Staphylococcus aureus (MRSA) is NOT DETECTED The MRSA target DNA sequences (mec and SCC) were not detected within the acceptable ranges using the Xpert MRSA NxG on the GeneXpert Dx System ([employer]). This suggests the absence of MRSA in the patient specimen submitted for testing. This test is cleared by the U.S. Food and Drug Administration for clinical use and its performance characteristics have been verified by the [facility] at [facility]. This result does not rule out the presence of any other organisms. Rare false negative results may occur if MRSA is present at low concentrations with much higher concentrations of other organisms including MRSE or S. aureus with an empty SCC cassette. Comment: [VERIFIED DATE]05.15.24 Verified By:Lupe Jensen (Electronic Signature) Tissue Culture, Aerobic & Anaerobic Toe [[id number]] (Abnormal) Collected: 05/14/24 113 Lab Status: Preliminary result Specimen: Toe Updated: 05/15/24 1212 Tissue culture [[id number]] (Abnormal) Collected: 05/14/24 113 Lab Status: Preliminary result Specimen: Toe Updated: 05/15/24 121 Tissue Culture No growth to date. Gram Stain -- Few Neutrophils seen Rare Gram Positive Cocci in pairs seen Results called to and read back by Dr. Mihaela Galvan 05/14/24 14:57:00 Organism Gram Positive Cocci in pairs Anaerobic Culture [[id number]] Collected: 05/14/24 113 Lab Status: Preliminary result Specimen: Toe Updated: 05/15/24 1124 Anaerobic Culture No anaerobic organisms isolated to date Blood culture [[id number]] Collected: 05/10/24 0232 Lab Status: Final result Specimen: Blood from Hand, Right Updated: 05/15/24 0701 Blood Culture No growth at 5 days. Skin/Superficial Wound Culture Toe [[id number]] (Abnormal) Collected: 05/10/24 0256 Lab Status: Final [...] pending clinical improvement # Code: Full Code Miahela Galvan MD 05/16/2024 PGY-1, Internal Medicine Red Team - Pager [phone] Associated attestation - Treva Diaz MD - [...] likely suture removal on 06/05/24. Please page [phone] with any questions or concerns. Activity: NWB until forefoot offloading shoe DVT prophylaxis: per primary, rec 30 days LVX or ASA81 BID Closure: Sutures (to be removed at Orthopaedic follow-up appointment) Dressing: bacitracin, xeroform, 4x4, kerlix, DEREK x 7 days Antibiotics: per primary Isra Rodriguez IV, DO 05/16/2024 Future Appointments Date Time Provider Department Center 06/05/2024 4:00 PM Elkin Garcia MD [facility] ORTH [address] [place] [address] * Mihaela Galvan MD - 05/15/2024 6:41 [...] Procedure Component Value - Date/Time Tissue culture [[id number]] (Abnormal) Collected: 05/14/24 1133 Lab Status: Preliminary result Specimen: Toe Updated: 05/14/24 1459 Gram Stain -- Few Neutrophils seen Rare Gram Positive Cocci in pairs seen Results called to and read back by Dr. Mihaela Galvan 05/14/24 14:57:00 Organism Gram Positive Cocci in pairs Blood culture [[id number]] Collected: 05/10/24 0232 Lab Status: Preliminary result Specimen: Blood from Hand, Right Updated: 05/14/24 0701 Blood Culture No growth at 4 days. Skin/Superficial Wound Culture Toe [[id number]] (Abnormal) Collected: 05/10/24 0256 Lab Status: Final [...] PGY-1, Internal Medicine Red Team - Pager [phone] Associated attestation - Treva Diaz MD - [...] of two midnights or is on the [facility] inpatient only procedure list (status C) due [...] Center 06/05/2024 4:00 PM Elkin Garcia MD [facility] ORTH 3C [facility] * Savannah Sy RN - 05/14/2024 1:45 [...] Center 06/05/2024 4:00 PM Elkin Garcia MD [facility] ORTH [address] [place] [address] * Mihaela Galvan MD - 05/14/2024 6:04 AM EDT [facility] Medicine - Red Team Inpatient Progress [...] PGY-1, Internal Medicine Red Team - Pager [phone] Associated attestation - Treva Diaz MD - [...] of two midnights or is on the [facility] inpatient only procedure list (status C) due [...] OR for the above procedure. Please page [phone] if there are any concerns regarding OR [...] Intake/Output Summary (Last 24 hours) at 05/13/2024 0603 Last data filed at 05/13/2024 0400 Gross [...] PGY-1, Internal Medicine Red Team - Pager [phone] Associated attestation - Treva Diaz MD - [...] of two midnights or is on the [facility] inpatient only procedure list (status C) due to: RLE cellulitis with concern forosteomyelitis. Continue on iv antibiotics and follow up with orthopedics regarding any surgical debridement . * Sarwat Marti - 05/12/2024 2:20 PM EDT Mental Health Counselor Encounter Note Patient Name: Jossy Shanks : [id number] MR#: [id number] Admit Date: 05/10/2024 2:12 AM Hospital Day 2 days Narrative:Visited to introduce and assess acceptance of Mental Health Counselor services. Patient was sleeping and I will [...] PGY-1, Internal Medicine Red Team - Pager [phone] Associated attestation - Treva Diaz MD - [...] of two midnights or is on the [facility] inpatient only procedure list (status C) due to: RLE cellulitis with concern forosteomyelitis. Continue on iv antibiotics and discuss with orthopedics regarding any urgent need for surgical debridement. * Rodriguez Tian MD - 05/11/2024 10:23 AM EDT MEDICINE PAGER [phone] - [facility] Daily Progress Note Admit Date: 05/10/2024 [...] controlled Afib (Xarelto, dilt, coreg), admitted to [facility] on 05/10/2024 with LE cellulitis 2/2 right [...] CHO counting level 2 Last BM documented: (MEDICAL CENTER REPRESENTATIVE) DVT Prophylaxis: Heparin DOAC Code Status: Attempt [...] of two midnights or is on the [facility] inpatient only procedure list (status C) due [...] presented to a local emergency [facility] yesterday ([id number] birthday) due to ongoing wound issues and [...] Intake/Output Summary (Last 24 hours) at 05/10/2024 0997 Last data filed at 05/10/2024 0552 Gross [...] minimumof two midnights or is on the [facility] inpatient only procedure list (status C) due [...] on Lasix, HTN on Losartan,who presented to [facility] for rt LE cellulitis, transferred to [facility] for septic shock. Interval Events: - lactate [...] 05/10/2024 2:37 AM) Result Value WORKSTATION ID [id number] Impression Bibasilar atelectasis. Thank you for letting us participate in the care of this patient. If you are a health care provider and have any questions regarding this report, please contact the number below. For patients who have questions please contact the health health care legal assistant that requested your imaging first. foot pending [...] Thomas MD - 05/10/2024 2:56 AM EDT [facility] TeleICU Initial Assessment Note I established audio/visual [...] hour(s)) Lactate, whole blood, send to lab ([facility]) Result Value Lactate WB 2.3 (H) [...] infection if clinical appearance is worrisome -Awaiting [facility] admission K+ level and Chem 7 -Would [...] indication: Osteomyelitis, central venous access required for fdc antibiotic use IR workflow: Procedure request received through Interventional Radiology eDH order queue. There are no answered order specific questions. History of Present Illness: Per chart review, Jossy Shanks is a 69 y.o. male with PMH of CKD, DM,COPD, A.fib, admitted for RLE cellulitis and osteomyelitis s/p 2ng toe amputation requiring fdc IV antibiotic administration who presents to Interventional [...] medical record. IR History: None listed at [facility] Anticoagulation/Antiplatelet: None listed Labs: Lab Results Component [...] Assessment: 69 y.o. male with OM requiring terminal supervisor IV ABX presenting to Interventional Radiology for [...] 6.64) performed by Elkin Garcia MD at [facility] MAIN OR Social History and Habits: [...] indication: Osteomyelitis, central venous access required for terminal supervisor antibiotic use IR workflow: Procedure request received through Interventional Radiology eDH order queue. There are no answered order specific questions. History of Present Illness: Per chart review, Jossy Shanks is a 69 y.o. male with PMH of CKD, DM,COPD, A.fib, admitted for RLE cellulitis and osteomyelitis s/p 2ng toe amputation requiring terminal supervisor IV antibiotic administration who presents to Interventional [...] medical record. IR History: None listed at [facility] Anticoagulation/Antiplatelet: None listed Labs: Lab Results Component [...] Assessment: 69 y.o. male with OM requiring fdc IV ABX presenting to Interventional Radiology for [...] 6.64) performed by Elkin Garcia MD at [facility] MAIN OR Social History and Habits: [...] amputation. Isra Rodriguez IV, DO Orthopaedic Surgery [facility] * Carlotta Davis MD - 05/10/2024 [...] on home oxygen, HFpEF, HTN, admitted to [facility] on 05/10/2024, now on Hospital Day #0, for RLE cellulitis SUBJECTIVE History of Present Illness: Per admitting provider Jossy Shanks is a 69 y.o. year old male with PMH significant for IDDM, Afib rate controlled, CKD (bsl cr 1.5), COPD not on home oxygen, HFpEF, HTN who presented to [facility] for rt LE cellulitis, transferred to [facility] for RLE cellulitis after trauma to his [...] knee. Fevers & chills for last 24hrs. [place]ssian lightheaded, weak, & couldn't get out of [...] prior to OSH departure. On arrival to [facility]: HR 96, o2 sat mid 90s on [...] limbs -chronic Motor Exam: Upper Limb Bilateral: Apron Worker Strength 5/5 Wrist Flexion/Extension 5/5 Elbow [...] in the last 7068 hours. Invalid input(s): [id number] Recent Labs 05/10/24219 HA1C 5.9* Lipids: Heme: No results for input(s): LDH, HAPTOGLOBIN, URICACID in the last 168 hours. ABG (Arterial Blood Gas): No results found for: PHART, PO2ART, RTV1OAC, VKO1PBJ VBG (Venous Blood Gas): No results for input(s): PHVEN, YIF0PHM, PO2VEN, CIZ3VKR, BEVEN, RYS7GSC in the last 72hours. EKG: No results [...] 05/10/2024 2:37 AM) Result Value WORKSTATION ID [id number] Impression Bibasilar atelectasis. Thank you for letting us participate in the care of this patient. If you are a health care provider and have any questions regarding this report, please contact the number below. For patients who have questions please contact the health health care legal assistant that requested your imaging first. Foot wwo Contrast Right (Exam End: 05/10/2024 5:51 AM) Result Value WORKSTATION ID [id number] Impression 1. Soft tissue irregularity of the [...] who have questions please contact the health health care legal assistant that requested your imaging first. Medications: Scheduled: [...] controlled Afib (Xarelto, dilt, coreg), admitted to [facility] on 05/10/2024, now on Hospital Day #0, [...] Internal Medicine PGY2 Medicine Team: Red, Pager #[phone] Associated attestation - Treva Diaz MD - [...] home oxygen, HFpEF, HTN who presented to [facility] for rt LE cellulitis, transferred to [facility] for septic shock. Reports end of March [...] knee. Fevers & chills for last 24hrs. [place] lightheaded, weak, & couldn't get out of [...] prior to OSH departure. On arrival to [facility]: HR 96, o2 sat mid 90s on [...] mobilizes w/out assistance. Darion Morgan is DPOA; [phone] Physical Exam: Vitals: Last value Range last [...] Anita Camacho MD Internal Medicine, PGY2 05/10/2024 [facility] Pager #[phone] documented in this encounter Procedure Notes * Juan José Flowers MD - 05/21/2024 11:49 AM EDT IR PROCEDURE NOTE Procedure: Tunneled central venous catheter placement. Indication for Procedure: Per Allyn MIMS, Jossy Shanks is a 69 y.o. male with PMH of CKD, DM, COPD, A.fib, admitted for RLE cellulitis andosteomyelitis s/p 2ng toe amputation requiring terminal supervisor IV antibiotic administration who presents to Interventional [...] Patient is medically ready for discharge to [facility]. Needs for Transition of Care: Plan for discharge is: [facility]ci Facility / Swing OPAT Orders: ID Consult Ordered Agency Referrals & Follow-up Care: Contact information for follow-up [facility] [address] [place] [address] Transportation: family or friend will provide Wheelchair [...] through: Primary Insurance: AAR MANAGED MEDICARE Payor: [facility] MANAGED MEDICARE / Plan: [facility] MANAGED MEDICARE COMPLETE / Product Type: *No Product type* / Secondary Insurance: N/A Prescription Coverage: Yes This plan was formulated with input from patient and team. All are in agreement with plan. Shirley Samuel RN CM Teacher Private- Medicine Office of Care Management Ext: [phone] Pager: [phone] * Plan of Care - Juan José [...] and were able to stop the bleeding. Electronic Masking System Operator carolyn a hemoglobin when patient got back [...] Operative Note Patient Name: Jossy Shanks : [id number] MR#: [id number] Case Date: 05/22/2024 Surgeon: Surgeons and Role: [...] Access Non-Dialysis 05/21/2024 Juan José Flowers MD [facility] INTERVENTIONL RAD PRO AMPUTATION METATARSAL+TOE, SINGLE Right 05/14/2024 AMPUTATION, TRANSMETATARSAL TOE, ONE TOE (WRVU 6.64) performed by Elkin Garcia MD at [facility] MAIN OR SOCIAL HX: Social History [...] who have questions, please contact the health health care legal assistant that requested your imaging first. Teofilo Ruiz, [...] who have questions please contact the health health care legal assistant that requested your imaging first. Chest One View Final Result Bibasilar atelectasis. Thank you for letting us participate in the care of this patient. If you are a health care provider and have any questions regarding this report, please contact the number below. For patients who have questions please contact the health health care legal assistant that requested your imaging first. SCOPY: Reports [...] anticoagulation and significant anemia. Tl Steele MD [facility] Gastroenterology * Plan of Care - Pretty [...] Pain Flowsheets (Taken 05/20/2024802) Pain Management Interventions: btlehl-kxp-smxuq dosing utilized breathing exercises care clustered diversional [...] Payor: [employer] MANAGED MEDICARE / Plan: AARP [facility] MANAGED MEDICARE COMPLETE / Product Type: *No Product type* / Secondary Insurance: N/A Last Physical Therapy Recommendation: swing bed rehabilitation facility, fdc facility with to be determined Last Occupational Therapy Recommendation: fdc facility, swing bed rehabilitation facility with to be determined Plan for discharge is: [facility] Facility / Swing Outpatient Agency/Support Group Needs: Homecare agency OPAT Orders: ID Consult Ordered Location: Home Home Health Services: IV Therapy Agency Referrals: Based on discussions with the multi-disciplinary healthcare team, the patient would benefit from SNF level of care at discharge. I have met with the patient to: discuss discharge planning needs. provide the [facility], Office of Care Management letter from the Parent Partner pertaining to rehab referrals. provide a letter describing our affiliations within the [facility] and educate about their right to choose where referrals are sent. provide the CMS Star Quality Rating handout. review the different levels of rehab including SNF, swing, and acute. provide a list of facilities within their preferred geographic area. request that they provide at least three choices for referral. They have requested referrals to: [facility] ([facility]) [address] [place] [address] [facility] [address] [place] [address] -OFFERED BED, PENDING INSURANCE AUTHORIZATION 05/20 [address] [facility] [address] [place] [address] [facility] [address] [place] [address] [facility]) [address] [place] [address] (Accepts pts only after exhausting all other local SNF options) Does patient have COVID vaccine card: Yes; Copy obtained: No Note routed to a Event Specialist Product Demonstrator who will communicate referrals to facilities and provide any required information. Transportation: family or friend will provide Barriers to discharge: Discharge planning Plan going forward: Referrals routed for SNF/Swing. Care Management will continue to follow and assist with discharge planning and coordination of care as indicated. Anticipated Date of Discharge: 05/21/2024 Shirley Samuel RN CM Teacher Private- Medicine Office of Care Management Ext: [phone] Pager: [phone] * Plan of Care - Pretty Ramirez [...] shock at his time of transfer to [facility]. Creatinine on admission was 3.94 mg/dL, [...] 6.64) performed by Elkin Garcia MD at [facility] MAIN OR insulin glargine-ygfn (Semglee) (100 [...] Flowsheets (Taken 05/18/2024 0838) Pain Management Interventions: uqrizj-dyf-fcakk dosing utilized care clustered diversional activity provided [...] television Taken 05/15/2024 1825 Pain Management Interventions: pamcru-ayg-onlzz dosing utilized position adjusted pillow support provided [...] smartphone Taken 05/15/2024 1825 Pain Management Interventions: avwaal-pqj-tfhsm dosing utilized position adjusted pillow support provided [...] 6.64) performed by Elkin Garcia MD at [facility] MAIN OR Active Non-Hospital Problems Diagnosis [...] Perception: WNL / WFL and corrective lenses time analysis clerk Communication: WFL Range of motion, strength, coordination: [...] planning. Total Minutes, Occupational Therapy: 90 (evaluation ([id number])) 2017 OT Evaluation Code Rationale: Diagnosis & [...] and measurable assessment of functional outcome. Pager: [phone] Penny Rodriguez OT 05/16/2024 Occupational Therapy Rehabilitation [...] have. Alternately, during off-hours you may call [phone] to contact a pharmacist. * Consult Note [...] briefly on vasopressors, and then transferred to [facility] for further management. 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 05/14. Reports a hx of cellulitis in the Left leg back in 2009 for which he states he did a course of 6 week son IV abx from [facility]. Has gotten cellulitis about half a dozen times in total. Review of Systems: Pertinent positives and negatives noted in HPI. 14 point ROS otherwise negative except noted in HPI. Allergies/Adverse drug reactions: No Known Allergies Family History: Family History No data available Social History: Housing: lives in a camper in [facility] Occupation: Former [employer], retired in 2017 [...] Procedure Component Value - Date/Time Blood culture [[id number]] Collected: 05/10/24 0232 Lab Status: Final result Specimen: Blood from Hand, Right Updated: 05/15/24 0701 Blood Culture No growth at 5 days. Tissue culture [[id number]] (Abnormal) Collected: 05/14/24 1133 Lab Status: Preliminary result Specimen: Toe Updated: 05/14/24 1459 Gram Stain -- Few Neutrophils seen Rare Gram Positive Cocci in pairs seen Results called to and read back by Dr. Mihaela Galvan 05/14/24 14:57:00 Organism Gram Positive Cocci in pairs Skin/Superficial Wound Culture Toe [[id number]] (Abnormal) Collected: 05/10/24 0256 Lab Status: Final [...] follow. Please page ID Red team (pager [phone]) with questions or concerns. Emmanuel Corey, DO Internal Medicine PGY-2 Pager: [phone] Epic Chat 05/15/2024 Associated attestation - Rodriguez [...] Home Health Services: IV Therapy Agency Referrals: [place] [address] or Home Care Orders: 1. IV Antibiotics: [...] Plan going forward: Barbie routed and pended. [facility] routed. Care Management will continue to follow and assist with discharge planning and coordination of care as indicated. Anticipated Date of Discharge: 05/19/2024 Shirley Samuel RN CM Teacher Private- Medicine Office of Care Management Ext: [phone] Pager: [phone] * Plan of Care - YgChristine lloyd Boob, RN - 05/15/2024 6:07 AM EDT Pt [...] Operative Note Patient Name: Jossy Shanks : [id number] MR#: [id number] Case Date: 05/14/2024 Surgeon: Surgeons and Role: [...] Garcia MD - 05/14/2024 11:16 AM EDT [facility] Operative Note Patient Name: Jossy Shanks : [id number] MR#: [id number] Case Date: 05/14/2024 Surgeon: Surgeons and Role: [...] can weight-bear as tolerated and heel off front end wheel loader operator We will follow his wounds while he is here in the hospital. Surgical Infection Prevention Bundle Used? N/A Attestation: Case Date: 05/14/2024 I was present and I participated during the entire procedure (does not need to include opening and closing). Elkin Garcia MD 05/14/2024 * Consult Note - Hakeem Villa, [facility] - 05/14/2024 7:15 AM EDT [facility] Pharmac[facility] Note Drug: Vancomycin Pharmacokinetic target: AUC24 (range) 400-600 mg/L.hr Jossy Shanks is a 69-year-old male receiving intermittent Vancomycin doses Recent measured serum creatinine values: 05/14/2024 05:01 1.56 mg/dL 05/13/2024 05:29 1.53 mg/dL 05/12/2024 04:45 2.03 mg/dL Assessment: Analysis of the most recent level(s) using [employer]ush[employer] gives the following patient-specific pharmacokinetic parameters: CL: [...] controlled Afib (Xarelto, dilt, coreg), admitted to [facility] on 05/10/2024 with LE cellulitis 2/2 right foot trauma. Reason for intervention: Diet order question - what type of carb control diet does pt need? Nutrition Recommendations: Carb control level 3 diet Monitor po intake Monitor blood glucose levels Monitor weight trends I was able to discuss plan with provider Medicine Pager [phone] . Nutrition consult received regarding what type of carb control diet pt needs. Estimated nutrition needs based on ideal body weight of 89kg: Calories: 0557-9828 calories (20-25kcal/kg) Protein: 89-107g (1-1.2g/kg) Nutrition to [...] border dressing. (Melgisorb Ag 6x6 PS # [id number]) (Melgisorb Ag 4x4 PS # [id number]) Sacrum/ischium: open to air, utilize Z-guard if patient begins to have breakdown Supplies left at the bedside: 1 sheet of Melgisorb Ag, wound cleanser Wound Care will complete the consult at this time. If there are further issues please re-consult via eD-H. Discussed plan with: RN: Don Please contact Keeley Russell RN on eDH secure chat or the wound care team on pager [phone] with skin and wound care concerns or [...] surrogate would be surrogate decision maker per [place] surrogate decision making law. (Only good for 180 days) Son CNORADO Any patient receiving care in [place] must abide by [place] law. The hierarchy for surrogate decision making [...] The agent with financial power of ip attorney or a conservator appointed in accordance [...] Current DME: none Home Address listed as: [address] [place] [address] Pt is not currently residing here. Current address is as below: [place] [address] [place] [address] Social & Family Supports: All names listed below confirmed with patient as current and correct Extended Emergency Contact Information Primary Emergency Contact: Eddie Shanks Mobile Relation: Son/Ubpllpvr-tl-esp Secondary Emergency Contact: Gifty Bucio [facility] Relation: Mother Current Care Provided by: [...] Pertinent/Service Specific Information: Health/Prescription Coverage: Primary Insurance: [facility] [employer] [facility] OOS Payor: [facility] OOS / Plan: [facility] OOS PPO / Product Type: *No Product type* / Secondary Insurance: N/A ; Prescription Coverage: Yes Preferred Pharmacy: [id number] - [place], [place] - [address] [place] [address] AT [address] [facility] [address] [facility] [id number] Primary Care Provider listed: None None Pt does have PCP in [place] Patient/Caregiver Goals of Treatment: Potential Needs for Transition of Care: none, home health care Agency Referrals: I have met with the patient to: discuss discharge planning needs. provide the [facility], Office of Care Management letter from the Parent Partner pertaining to rehab referrals. provide a letter describing our affiliations within the [facility] and educate about their right to choose where referrals are sent. provide a list of Home Health Agencies / Durable Medical Equipment vendors which serve their preferred geographic area. provided patient with [facility] Star Quality Rating handout. They have requested referrals to: [facility] [address] [place] [address] Note routed to a Event Specialist Product Demonstrator who will communicate referrals to facilities and [...] wait list for housing (an apartment) in [place], [place]; ETA for move-in is 4-8weeks. He does not feel that his local family members would be able to house him in the interim andexpresses that he is comfortable in his camper, which has amenities. He is fully independent at baseline but has used [facility] health in the past; a [...] Clinical Pharmacist Note - VancFD Jossy Shanks [id number] 1955 Jossy Shanks is a 69 y.o. [...] Alternately, during off-hours (-) you may call [phone] to contact a pharmacist. Rodriguez Sinclair RPH [...] intact shoulder abduction, elbow flexion/extension, wrist flexion/extension, pe manager, EPL, AIN, IO Brisk capillary refill distally [...] intact shoulder abduction, elbow flexion/extension, wrist flexion/extension, pe manager, EPL, AIN, IO Brisk capillary refill distally [...] changes develop in his course. Please page [phone] following completion of requestedimaging and studies. - Activity: no restrictions at this time - DVT prophylaxis: per primary; recommend lovenox 30 mg BID - Antibiotics: per ID - Imaging / studies needed: MRI wwo contrast, ABIs, ESR, CRP Tyrone Rehman MD Orthopaedic Surgery, [id number] documented in this encounter Plan of Treatment Upcoming Encounters Date Type Department Care Team (Late st Contact Info) Description 06/10/2024 10:30 AM EDT Office [place] [phone] Elkin Garcia MD [facility] [address] [place] [address] Scheduled Referrals Name Type Priority Associated Diagnoses [...] 05/14/2024 11:32 AM EDT Amputation Metatarsal+Toe, Single (09143) 05/14/2024 10:37 AM EDT right second toe [...] OF CARE TEST ORDERABLES Performing Organization Address City/State/[facility] Co de Phone Number [facility] [place] [address] * (ABNORMAL) Basic Metabolic Panel (05/23/2024 9:46 [...] - 145 mMol/L 05/23/2024 11:27 AM EDT [facility] Potassium 5.2(H) 3.5 - 5.0 mMol/L 05/23/2024 11:27 AM EDT [facility] Chloride 111(H) 98 - 107 mMol/L 05/23/2024 11:27 AM EDT [facility] Carbon Dioxide 20(L) 22 - 31 mMol/L 05/23/2024 11:27 AM EDT [facility] Anion Gap 9 5 - 15 mMol/L 05/23/2024 11:27 AM EDT [facility] Calcium 9.3 8.5 - 10.5 mg/dL 05/23/2024 11:27 AM T [facility] Est Glomerular Filtration [...] CHEMISTRY ORDERABLE S [facility] [place] [address] * (ABNORMAL) CBC (with Diff) (05/23/2024 9:46 AM EDT) White Blood Cell 12.66(H) 4.00 - 9.50 x10(3)/mc L 05/23/2024 10:52 AM EDT [facility] Red Blood Cell 2.56(L) 4.58 - [...] HEMATOLOGY ORDERABL ES [facility] [place] [address] * POC, GLUCOSE (05/23/2024 7:44 AM EDT) [facility] Signature Glucometer, POC 127 65 - 199 mg/dL 05/23/2024 7:44 AM EDT [facility] Comment:Supplemental ranges: <140 mg/dL before meals <180 mg/dL all other times of the day. Blood CAPILLARY BLOOD / Unknown 05/23/2024 7:44 AM EDT 05/23/2024 7:45 AM EDT Saba Spears MD POINT OF CARE TEST ORDERABLES Performing Organization Address City/[facility] Co de Phone Number [facility] [place] [address] * Prepare RBC (05/23/2024 3:49 AM EDT) Status Information Transfused [facility] Product Identification RBC [facility] Unit Number [id number] [facility] Product Code [id number] [facility] Unit Blood Type OPOS [facility] Specimen Expiration Date [id number] [facility] Volulme 350 [facility] Issue Date / Time [id number] [facility] Blood 05/22/2024 12: 42 PM EDT Saba Spears MD BLOOD BANK PRODUCT ORDERABLES Performing Organization Address [facility] Co de Phone Number [facility] [place] [place] [address] * POC, GLUCOSE (05/23/2024 3:49 AM EDT) Glucometer, POC 152 65 - 199 mg/dL 05/23/2024 3:49 AM EDT [facility] Comment:Supplemental ranges: <140 mg/dL before meals <180 mg/dL all other times of the day. Blood CAPILLARY BLOOD / Unknown 05/23/2024 3:49 AM EDT 05/23/2024 3:49 AM EDT Saba Spears MD POINT OF CARE TEST ORDERABLES Performing Organization Address City/[facility]/ZIP Co de Phone Number [facility] [place] [address] * POC, GLUCOSE (05/23/2024 1:26 AM EDT) [facility] Glucometer, POC 138 65 - 199 mg/dL 05/23/2024 1:26 AM EDT [facility] Comment:Supplemental ranges: <140 mg/dL before meals <180 mg/dL all other times of the day. Blood CAPILLARY BLOOD / Unknown 05/23/2024 1:26 AM EDT 05/23/2024 1:26 AM EDT Saba Spears MD POINT OF CARE TEST ORDERABLES Performing Organization Address City/[facility]/ZIP Co de Phone Number [facility] [place] [address] * (ABNORMAL) Scan, Peripheral Blood (05/23/2024 1:19 AM EDT) [facility] RBC Morphology Abnormal 05/23/2024 3:44 AM EDT [facility] Platelet Estimate Increased(A) Normal 05/23/2024 3:44 AM EDT [facility] Ovalocytes 1-5 /HPF 05/23/2024 3:44 AM EDT [facility] Edgar cells 1-5 /HPF 05/23/2024 3:44 AM EDT [facility] Blood VENOUS BLOOD SPECIMEN / Unknown IP Care Team Draw / Unknown 05/23/2024 1:19 AM EDT 05/23/2024 2:05 AM EDT Mary De La Fuente MD HEMATOLOGY ORDERAB LES [facility] [place] [address] * Magnesium (05/23/2024 1:19 AM EDT) [facility] Magnesium 0.86 0.69 - 1.07 mMol/L 05/23/2024 2:40 AM EDT [facility] Blood VENOUS BLOOD SPECIMEN / Unknown IP Care Team Draw / Unknown 05/23/2024 1:19 AM EDT 05/23/2024 2:05 AM EDT Mary De La Fuente MD CHEMISTRY ORDERABL ES Performing Organization Address [facility]/ZIP Co de Phone Number [facility] [place] [address] * (ABNORMAL) Phosphorus (05/23/2024 1:19 AM EDT) Phosphorus 5.8(H) 2.5 - 4.5 mg/dL 05/23/2024 2:40 AM EDT [facility] Blood VENOUS BLOOD SPECIMEN / Unknown IP Care Team Draw / Unknown 05/23/2024 1:19 AM EDT 05/23/2024 2:05 AM EDT Mary De La Fuente MD CHEMISTRY ORDERABL ES Performing Organization Address [facility] Co de Phone Number [facility] [place] [address] * (ABNORMAL) Basic Metabolic Panel (non-fasting) (05/23/2024 [...] mL/min/1. 73 m?? 05/23/2024 3:34 AM EDT [facility] Comment: [...] Foundation Fasting Status 05/23/2024 3:34 AM EDT [facility] Blood VENOUS BLOOD SPECIMEN / Unknown IP Care Team Draw / Unknown 05/23/2024 1:19 AM EDT 05/23/2024 2:05 AM EDT Mary De La Fuente MD CHEMISTRY ORDERABL ES [facility] [place] [address] * (ABNORMAL) CBC (with Diff) (05/23/2024 1:19 AM EDT) White Blood Cell 12.66(H) 4.00 - 9.50 x10(3)/mc L 05/23/2024 3:44 AM EDT [facility] Red Blood Cell 2.61(L) 4.58 [...] MD HEMATOLOGY ORDERAB LES Performing Organization Address City/[facility]/ZIP Co de Phone Number [facility] [place] [address] * POC, GLUCOSE (05/22/2024 8:21 PM EDT) Glucometer, POC 152 65 - 199 mg/dL 05/22/2024 8:21 PM EDT [facility] Comment:Supplemental ranges: <140 mg/dL before meals <180 mg/dL all other times of the day. Blood CAPILLARY BLOOD / Unknown 05/22/2024 8:21 PM EDT 05/22/2024 8:21 PM EDT Saba Spears MD POINT OF CARE TEST ORDERABLES Performing Organization Address City/[facility]/ZIP Co de Phone Number [facility] [place] [address] * POC, GLUCOSE (05/22/2024 6:20 PM EDT) Glucometer, POC 130 65 - 199 mg/dL 05/22/2024 6:20 PM EDT [facility] Comment:Supplemental ranges: <140 mg/dL before meals <180 mg/dL all other times of the day. Blood CAPILLARY BLOOD / Unknown 05/22/2024 6:20 PM EDT 05/22/2024 6:21 PM EDT Saba Spears MD POINT OF CARE TEST ORDERABLES [facility] [place] [address] * Transfuse RBC (05/22/2024 2:45 PM EDT) Saba Spears MD NURSING TREATMENT O RDERABLES - BLOOD ADMIN * UPPER GI ENDOSCOPY (05/22/2024 12:48 PM EDT) Pathologist [facility] UPPER GI ENDOSCOPY [facility] Endoscopy ___ Procedure Date: 05/22/2024 12:48 PM ? Patient Name: Jossy Shanks ? N: [id number] ? Date of : 1955 ? Age: 69 ? Order #: [id number] ? Instrument Name: [id number] ? ___ Procedure: ? Upper GI endoscopy [...] Recheck Progress Complete 05/22/2024 1:01 PM EDT [facility] Blood VENOUS BLOOD SPECIMEN / Unknown IP Care Team Draw / Unknown 05/22/2024 11:18 AM EDT 05/22/2024 11:27 AM EDT Saba Spears MD BLOOD BANK LAB FADY GAO [facility] [place] [place] [address] * Type and screen ([facility]/CGP/TARA) (05/22/2024 11:18 AM EDT) ABORH Type O POSITIVE 05/22/2024 12:31 PM EDT [facility] PATIENT HISTORY Found 05/22/2024 12:31 PM EDT [facility] Expires at [id number] on: 05-22-2024 05/22/2024 12:31 PM EDT [facility] ANTIBODY SCREEN AUTOMATED Negative 05/22/2024 12:31 PM EDT [facility] T&S only valid at [facility] 05/22/2024 12:31 PM EDT [facility] Blood VENOUS BLOOD SPECIMEN / Unknown IP Care Team Draw / Unknown 05/22/2024 11:18 AM EDT 05/22/2024 11:27 AM EDT Narrative [facility] - 05/22/2024 12:31 PM EDT This Type and Screen result is only valid at the [facility] Saba Spears MD BLOOD BANK LAB ORDE RABLES Performing Organization Address City/[facility]/ZIP Co de Phone Number [facility] [place] [address] * (ABNORMAL) Hemoglobin and Hematocrit, blood (05/22/2024 [...] HEMATOLOGY ORDERABL ES [facility] [place] [address] * POC, GLUCOSE (05/22/2024 11:14 AM EDT) Glucometer, POC 126 65 - 199 mg/dL 05/22/2024 11:17 AM EDT [facility] Comment:Supplemental ranges: <140 mg/dL before meals <180 mg/dL all other times of the day. Blood CAPILLARY BLOOD / Unknown 05/22/2024 11:14 AM EDT 05/22/2024 11:18 AM EDT Saba Spears MD POINT OF CARE TEST ORDERABLES Performing Organization Address City/[facility]/ZIP Co de Phone Number [facility] [place] [address] * POC, GLUCOSE (05/22/2024 8:07 AM EDT) Glucometer, POC 132 65 - 199 mg/dL 05/22/2024 8:08 AM EDT [facility] Comment:Supplemental ranges: <140 mg/dL before meals <180 mg/dL all other times of the day. Blood CAPILLARY BLOOD / Unknown 05/22/2024 8:07 AM EDT 05/22/2024 8:08 AM EDT Saba Spears MD POINT OF CARE TEST ORDERABLES Performing Organization Address [facility] Co de Phone Number [facility] [place] [address] * (ABNORMAL) Hepatic Function Panel (05/22/2024 5:18 [...] MD CHEMISTRY ORDERABLE S Performing Organization Address City/[facility]/ZIP Co de Phone Number [facility] [place] [address] * Magnesium (05/22/2024 5:18 AM EDT) Magnesium 0.93 0.69 - 1.07 mMol/L 05/22/2024 6:16 AM EDT [facility] Blood VENOUS BLOOD SPECIMEN / Unknown IP Care Team Draw / Unknown 05/22/2024 5:18 AM EDT 05/22/2024 5:45 AM EDT Mary De La Fuente MD CHEMISTRY ORDERABL ES Performing Organization Address [facility]/ZIP Co de Phone Number [facility] [place] [address] * (ABNORMAL) Phosphorus (05/22/2024 5:18 AM EDT) Phosphorus 5.8(H) 2.5 - 4.5 mg/dL 05/22/2024 6:16 AM EDT [facility] Blood VENOUS BLOOD SPECIMEN / Unknown IP Care Team Draw / Unknown 05/22/2024 5:18 AM EDT 05/22/2024 5:45 AM EDT Mary De La Fuente MD CHEMISTRY ORDERABL ES Performing Organization Address City/[facility]/ZIP Co de Phone Number [facility] [place] [address] * (ABNORMAL) Basic Metabolic Panel (05/22/2024 5:18 [...] ORDERABL ES [facility] [place] [address] * (ABNORMAL) CBC (with Diff) (05/22/2024 5:18 AM EDT) White Blood Cell 14.70(H) 4.00 - 9.50 x10(3)/mc L 05/22/2024 5:52 AM EDT [facility] Red Blood Cell 2.37(L) 4.58 - 5.54 x10(6)/mc L 05/22/2024 5:52 AM EDT [facility] Hemoglobin 7.2(L) 13.7 - 16.5 g/dL 05/22/2024 5:52 AM EDT [facility] Hematocrit 22.1(L) 40.5 - 48.5 % 05/22/2024 5:52 AM EDT [facility] Mean Cell Volume 93.2(H) 82.9 - 93.1 fL 05/22/2024 5:52 AM EDT [facility] Mean Cell Hemoglobin 30.4 27.5 - 32.1 pg 05/22/2024 5:52 AM EDT [facility] Mean Cell Hemoglobin Concentration 32.6 32.0 - 35.7 g/dL 05/22/2024 5:52 AM EDT [facility] Platelet 366(H) 145 - 357 x10(3)/mc L 05/22/2024 5:52 AM EDT [facility] Mean Platelet Volume 10.9 7.6 - 12.9 fL 05/22/2024 5:52 AM EDT [facility] RDW Standard Deviation 54.6(H) 36.0 - 45.0 fL 05/22/2024 5:52 AM EDT [facility] RDW coefficient of variation 16.3(H) 11.4 - 13.8 % 05/22/2024 5:52 AM [facility] NRBC% auto 0.0 % 05/22/2024 5:[facility] NRBC Absolute 0.00 0.00 - 0.00 x10(3)/mc L 05/22/2024 5:52 AM [facility] Neutrophil % 83.2 % 05/22/2024 5:52 AM [facility] Neutrophil Absolute 12.22(H) 1.70 - 6.10 [...] MD HEMATOLOGY ORDERAB LES Performing Organization Address City/[facility]/ZIP Co de Phone Number [facility] [place] [address] * POC, GLUCOSE (05/22/2024 3:50 AM EDT) Glucometer, POC 140 65 - 199 mg/dL 05/22/2024 3:50 AM EDT [facility] Comment:Supplemental ranges: <140 mg/dL before meals <180 mg/dL all other times of the day. Blood CAPILLARY BLOOD / Unknown 05/22/2024 3:50 AM EDT 05/22/2024 3:50 AM EDT Saba Spears MD POINT OF CARE TEST ORDERABLES Performing Organization Address [facility]/ZIP Co de Phone Number [facility] [place] [address] * Scan Doc: Lab (05/22/2024 12:00 AM [...] OF CARE TEST ORDERABLES Performing Organization Address City/[facility]/ZIP Co de Phone Number [facility] [place] [address] * POC, GLUCOSE (05/21/2024 7:49 PM EDT) Glucometer, POC 161 65 - 199 mg/dL 05/21/2024 7:49 PM EDT [facility] Comment:Supplemental ranges: <140 mg/dL before meals <180 mg/dL all other times of the day. Blood CAPILLARY BLOOD / Unknown 05/21/2024 7:49 PM EDT 05/21/2024 7:49 PM EDT Saba Spears MD POINT OF CARE TEST ORDERABLES Performing Organization Address [facility] Co de Phone Number [facility] [place] [address] * POC, GLUCOSE (05/21/2024 5:18 PM EDT) Glucometer, POC 152 65 - 199 mg/dL 05/21/2024 5:18 PM EDT [facility] Comment:Supplemental ranges: <140 mg/dL before meals <180 mg/dL all other times of the day. Blood CAPILLARY BLOOD / Unknown 05/21/2024 5:18 PM EDT 05/21/2024 5:18 PM EDT Saba Spears MD POINT OF CARE TEST ORDERABLES Performing Organization Address City/[facility]/ZIP Co de Phone Number [facility] [place] [address] * (ABNORMAL) Hemogram (05/21/2024 3:00 PM EDT) White Blood Cell 14.25(H) 4.00 - 9.50 x10(3)/mc L 05/21/2024 3:41 PM EDT [facility] Red Blood Cell 2.61(L) 4.58 - 5.54 x10(6)/mc L 05/21/2024 3:41 PM EDT [facility] Hemoglobin 7.8(L) 13.7 - 16.5 g/dL 05/21/2024 3:41 PM EDT [facility] Hematocrit 24.5(L) 40.5 - 48.5 % 05/21/2024 3:41 PM EDT [facility] Mean Cell Volume 93.9(H) 82.9 - 93.1 fL 05/21/2024 3:41 PM EDT [facility] Mean Cell Hemoglobin 29.9 27.5 - 32.1 pg 05/21/2024 3:41 PM EDT [facility] Mean Cell Hemoglobin Concentration 31.8(L) 32.0 - 35.7 g/dL 05/21/2024 3:41 PM EDT [facility] Platelet 456(H) 145 - 357 x10(3)/mc L 05/21/2024 3:41 PM EDT [facility] Mean Platelet Volume 11.1 7.6 - 12.9 fL 05/21/2024 3:41 PM EDT [facility] RDW Standard Deviation 55.2(H) 36.0 - 45.0 fL 05/21/2024 3:41 PM EDT [facility] RDW coefficient of variation 16.1(H) 11.4 - 13.8 % 05/21/2024 3:41 PM EDT [facility] NRBC% auto 0.0 % 05/21/2024 3:41 PM EDT [facility] NRBC Absolute 0.00 0.00 - 0.00 x10(3)/mc L 05/21/2024 3:41 PM EDT [facility] Blood VENOUS BLOOD SPECIMEN / Unknown IP Care Team Draw / Unknown 05/21/2024 3:00 PM EDT 05/21/2024 3:36 PM EDT Saba Spears MD HEMATOLOGY ORDERABL ES [facility] [place] [address] * POC, GLUCOSE (05/21/2024 12:39 PM EDT) Glucometer, POC 144 65 - 199 mg/dL 05/21/2024 12:39 PM EDT [facility] Comment:Supplemental ranges: <140 mg/dL before meals <180 mg/dL all other times of the day. Blood CAPILLARY BLOOD / Unknown 05/21/2024 12:39 PM EDT 05/21/2024 12:39 PM EDT Saba Spears MD POINT OF CARE TEST ORDERABLES [facility] [place] [address] * IR Tunneled Central Venous Access Non-Dialysis [...] and osteomyelitis s/p 2ng toe amputation requiring fdc IV antibiotic administration who presents to Interventional [...] guidance and a 4Fr sheath placed. ??[address] injection compatible single lumen catheter was [...] POC, GLUCOSE (05/21/2024 9:12 AM EDT) Pathologist [employer] Glucometer, POC 144 65 - 199 mg/dL 05/21/2024 9:12 AM EDT [facility] Comment:Supplemental ranges: <140 mg/dL before meals <180 mg/dL all other times of the day. Blood CAPILLARY BLOOD / Unknown 05/21/2024 9:12 AM EDT 05/21/2024 9:12 AM EDT Saba Spears MD POINT OF CARE TEST ORDERABLES [facility] [place] [address] * POC, GLUCOSE (05/21/2024 8:32 AM EDT) Pathologist [employer] Glucometer, POC 135 65 - 199 mg/dL 05/21/2024 8:32 AM EDT [facility] Comment:Supplemental ranges: <140 mg/dL before meals <180 mg/dL all other times of the day. Blood CAPILLARY BLOOD / Unknown 05/21/2024 8:32 AM EDT 05/21/2024 8:32 AM EDT Saba Spears MD POINT OF CARE TEST ORDERABLES [facility] [place] [address] * (ABNORMAL) Hemogram (05/21/2024 8:27 AM EDT) White Blood Cell 15.77(H) 4.00 - 9.50 x10(3)/mc L 05/21/2024 8:54 AM EDT [facility] Red Blood Cell 2.47(L) 4.58 - 5.54 x10(6)/mc L 05/21/2024 8:54 AM EDT [facility] Hemoglobin 7.5(L) 13.7 - 16.5 g/dL 05/21/2024 8:54 AM T [facility] Hematocrit 23.0(L) 40.5 [...] MD HEMATOLOGY ORDERABL ES Performing Organization Address City/[facility]/ZIP Co de Phone Number [facility] [place] [address] * (ABNORMAL) CRP, acute inflammation (05/21/2024 4:58 AM EDT) C-Reactive Protein 14.1(H) <=4.9 mg/L 05/21/2024 10:05 AM EDT [facility] Blood VENOUS BLOOD SPECIMEN / Unknown IP Care Team Draw / Unknown 05/21/2024 4:58 AM EDT 05/21/2024 5:17 AM EDT Saba Spears MD CHEMISTRY ORDERABLE S [facility] [place] [address] * Magnesium (05/21/2024 4:58 AM EDT) Magnesium 0.99 0.69 - 1.07 mMol/L 05/21/2024 5:51 AM EDT [facility] Blood VENOUS BLOOD SPECIMEN / Unknown IP Care Team Draw / Unknown 05/21/2024 4:58 AM EDT 05/21/2024 5:17 AM EDT Mary De La Fuente MD CHEMISTRY ORDERABL ES Performing Organization Address [facility] Co de Phone Number [facility] [place] [address] * (ABNORMAL) Phosphorus (05/21/2024 4:58 AM EDT) Phosphorus 6.2(H) 2.5 - 4.5 mg/dL 05/21/2024 5:51 AM EDT [facility] Blood VENOUS BLOOD SPECIMEN / Unknown IP Care Team Draw / Unknown 05/21/2024 4:58 AM EDT 05/21/2024 5:17 AM EDT Mary De La Fuente MD CHEMISTRY ORDERABL ES Performing Organization Address [facility] Co de Phone Number [facility] [place] [address] * (ABNORMAL) Basic Metabolic Panel (05/21/2024 4:58 [...] - 107 mMol/L 05/21/2024 5:51 AM EDT [facility] Carbon Dioxide 18(L) 22 - 31 mMol/L 05/21/2024 5:51 AM EDT [facility] Anion Gap 9 5 - 15 mMol/L 05/21/2024 5:51 AM EDT [facility] Calcium 9.4 8.5 - 10.5 mg/dL 05/21/2024 5:51 AM EDT [facility] Est Glomerular Filtration Rate - Male 21 mL/min/1. 73 m?? 05/21/2024 5:51 AM EDT [facility] Comment: [...] Fasting Status No 05/21/2024 5:51 AM EDT [facility] Blood VENOUS BLOOD SPECIMEN / Unknown IP Care Team Draw / Unknown 05/21/2024 4:58 AM EDT 05/21/2024 5:17 AM EDT Mary De La Fuente MD CHEMISTRY ORDERABL ES [facility] [place] [address] * (ABNORMAL) CBC (with Diff) (05/21/2024 4:58 [...] HEMATOLOGY ORDERAB LES [facility] [place] [address] * POC, GLUCOSE (05/21/2024 3:45 AM EDT) Glucometer, POC 155 65 - 199 mg/dL 05/21/2024 3:45 AM EDT [facility] Comment:Supplemental ranges: <140 mg/dL before meals <180 mg/dL all other times of the day. Blood CAPILLARY BLOOD / Unknown 05/21/2024 3:45 AM EDT 05/21/2024 3:46 AM EDT Saba Spears MD POINT OF CARE TEST ORDERABLES [facility] [place] [address] * POC, GLUCOSE (05/20/2024 11:44 PM EDT) Glucometer, POC 132 65 - 199 mg/dL 05/20/2024 11:44 PM EDT [facility] Comment:Supplemental ranges: <140 mg/dL before meals <180 mg/dL all other times of the day. Blood CAPILLARY BLOOD / Unknown 05/20/2024 11:44 PM EDT 05/20/2024 11:44 PM EDT Saba Spears MD POINT OF CARE TEST ORDERABLES Performing Organization Address [facility]/ZIP Co de Phone Number [facility] [place] [address] * POC, GLUCOSE (05/20/2024 7:24 PM EDT) Glucometer, POC 166 65 - 199 mg/dL 05/20/2024 7:24 PM EDT [facility] Comment:Supplemental ranges: <140 mg/dL before meals <180 mg/dL all other times of the day. Blood CAPILLARY BLOOD / Unknown 05/20/2024 7:24 PM EDT 05/20/2024 7:25 PM EDT Saba Spears MD POINT OF CARE TEST ORDERABLES [facility] [place] [address] * POC, GLUCOSE (05/20/2024 4:24 PM EDT) Glucometer, POC 170 65 - 199 mg/dL 05/20/2024 4:24 PM EDT [facility] Comment:Supplemental ranges: <140 mg/dL before meals <180 mg/dL all other times of the day. Blood CAPILLARY BLOOD / Unknown 05/20/2024 4:24 PM EDT 05/20/2024 4:24 PM EDT Saba Spears MD POINT OF CARE TEST ORDERABLES Performing Organization Address City/State/[facility] Co de Phone Number [facility] [place] [address] * (ABNORMAL) Hemogram (05/20/2024 12:35 PM EDT) [...] MD HEMATOLOGY ORDERABL ES Performing Organization Address City/[facility]/ZIP Co de Phone Number [facility] [place] [address] * POC, GLUCOSE (05/20/2024 11:52 AM EDT) Glucometer, POC 176 65 - 199 mg/dL 05/20/2024 11:52 AM EDT [facility] Comment:Supplemental ranges: <140 mg/dL before meals <180 mg/dL all other times of the day. Blood CAPILLARY BLOOD / Unknown 05/20/2024 11:52 AM EDT 05/20/2024 11:52 AM EDT Saba Spears MD POINT OF CARE TEST ORDERABLES Performing Organization Address City/[facility]/ZIP Co de Phone Number [facility] [place] [address] * US Retroperitoneal Complete (05/20/2024 10:36 AM EDT) Pathologist [employer] WORKSTATION ID [id number] RAD Anatomical Region Laterality Modality Abdomen Ultrasound [...] who have questions, please contact the health health care legal assistant that requested your imaging first. ?Teofilo Ruiz, Staff Physician Electronically Signed Final Report ?? 05/20/2024 11:36 am Narrative 05/20/2024 11:37 AM EDT Renal ? (Signed Final 05/20/2024 11:36 am) PATIENT INFO: ID #: ? [id number] ?: ??[birth year] (69 yrs)(M) Name: ? JOSSY SHANKS ? Visit Date: 05/20/2024 10:34 am PERFORMED BY: Attending: ?Joseph SOTOMAYOR, Teofilo Flores Resident: ? Kuldeep SOTOMAYOR, Trinidad Wright Performed By: ? Lulu Shin RDMS Referred By: ?SABA SPEARS Location: ? [place] SERVICE(S) PROVIDED: URETRO - Retroperitoneal Complete - [id number] ? [id number] INDICATIONS: CKD, increase BUN TECHNIQUE/SCAN QUALITY: Scan [...] 05/20/2024 11:36 am) PATIENT INFO: ID #: [id number] : [birth year] (69 yrs)(M) Name: JOSSY SHANKS Visit Date: 05/20/2024 10:34 am PERFORMED BY: Attending: Joseph SOTOMAYOR, Teofilo Flores Resident: Trinidad Light MD Performed By: Lulu Shin RDMS Referred By: SABA SPEARS Location: [place] SERVICE(S) PROVIDED: URETRO - Retroperitoneal Complete - [id number] INDICATIONS: CKD, increase BUN TECHNIQUE/SCAN QUALITY: Scan [...] who have questions, please contact the health health care legal assistant that requested your imaging first. Teofilo Ruiz, Staff Physician Electronically Signed Final Report 05/20/2024 11:36 am Saba Spears MD IMG US GEN ORDERABL ES * POC, GLUCOSE (05/20/2024 8:03 AM EDT) [facility] Glucometer, POC 180 65 - 199 mg/dL 05/20/2024 8:03 AM EDT [facility] Comment:Supplemental ranges: <140 mg/dL before meals <180 mg/dL all other times of the day. Blood CAPILLARY BLOOD / Unknown 05/20/2024 8:03 AM EDT 05/20/2024 8:03 AM EDT Saba Spears MD POINT OF CARE TEST ORDERABLES Performing Organization Address [facility]/ZIP Co de Phone Number [facility] [place] [address] * Magnesium (05/20/2024 4:27 AM EDT) Magnesium 0.99 0.69 - 1.07 mMol/L 05/20/2024 5:27 AM EDT [facility] Blood VENOUS BLOOD SPECIMEN / Unknown IP Care Team Draw / Unknown 05/20/2024 4:27 AM EDT 05/20/2024 4:52 AM EDT Mary De La Fuente MD CHEMISTRY ORDERABL ES Performing Organization Address [facility] Co de Phone Number [facility] [place] [address] * (ABNORMAL) Phosphorus (05/20/2024 4:27 AM EDT) Phosphorus 5.1(H) 2.5 - 4.5 mg/dL 05/20/2024 5:27 AM EDT [facility] Blood VENOUS BLOOD SPECIMEN / Unknown IP Care Team Draw / Unknown 05/20/2024 4:27 AM EDT 05/20/2024 4:52 AM EDT Mary De La Fuente MD CHEMISTRY ORDERABL ES Performing Organization Address [facility] Co de Phone Number [facility] [place] [address] * (ABNORMAL) Basic Metabolic Panel (non-fasting) (05/20/2024 4:27 AM EDT) Glucose 173 65 - 199 mg/dL 05/20/2024 6:27 AM EDT [facility] Comment:Glucose [...] CHEMISTRY ORDERABL ES [facility] [place] [address] * (ABNORMAL) CBC (with Diff) (05/20/2024 4:27 [...] - 93.1 fL 05/20/2024 5:32 AM T [facility] Mean Cell Hemoglobin 29.4 27.5 - 32.1 pg 05/20/2024 5:32 AM [facility] Mean Cell Hemoglobin Concentration 31.0(L) 32.0 - 35.7 g/dL 05/20/2024 5:32 AM EDT [facility] Platelet 403(H) 145 - 357 x10(3)/mc L 05/20/2024 5:32 AM EDT [facility] Mean Platelet Volume 10.7 7.6 - 12.9 fL 05/20/2024 5:[facility] Standard Deviation 54.7(H) 36.0 [...] MD HEMATOLOGY ORDERAB LES Performing Organization Address City/[facility] Co de Phone Number [facility] [place] [address] * POC, GLUCOSE (05/20/2024 3:11 AM EDT) Glucometer, POC 163 65 - 199 mg/dL 05/20/2024 3:12 AM EDT [facility] Comment:Supplemental ranges: <140 mg/dL before meals <180 mg/dL all other times of the day. Blood CAPILLARY BLOOD / Unknown 05/20/2024 3:11 AM EDT 05/20/2024 3:12 AM EDT Saba Spears MD POINT OF CARE TEST ORDERABLES Performing Organization Address [facility] Co de Phone Number [facility] [place] [address] * POC, GLUCOSE (05/19/2024 11:07 PM EDT) Glucometer, POC 136 65 - 199 mg/dL 05/19/2024 11:07 PM EDT [facility] Comment:Supplemental ranges: <140 mg/dL before meals <180 mg/dL all other times of the day. Blood CAPILLARY BLOOD / Unknown 05/19/2024 11:07 PM EDT 05/19/2024 11:07 PM EDT Saba Spears MD POINT OF CARE TEST ORDERABLES Performing Organization Address City/[facility]/ZIP Co de Phone Number [facility] [place] [address] * POC, GLUCOSE (05/19/2024 8:20 PM EDT) Glucometer, POC 150 65 - 199 mg/dL 05/19/2024 8:20 PM EDT [facility] Comment:Supplemental ranges: <140 mg/dL before meals <180 mg/dL all other times of the day. Blood CAPILLARY BLOOD / Unknown 05/19/2024 8:20 PM EDT 05/19/2024 8:21 PM EDT Saba Spears MD POINT OF CARE TEST ORDERABLES Performing Organization Address City/[facility]/ZIP Co de Phone Number [facility] [place] [address] * (ABNORMAL) Iron and TIBC (05/19/2024 5:09 [...] MD CHEMISTRY ORDERABLE S Performing Organization Address City/[facility]/ZIP Co de Phone Number [facility] [place] [address] * PTH (05/19/2024 5:09 PM EDT) Parathyroid Hormone 27 15 - 65 pg/mL 05/19/2024 6:15 PM EDT [facility] Blood VENOUS BLOOD SPECIMEN / Unknown IP Care Team Draw / Unknown 05/19/2024 5:09 PM EDT 05/19/2024 5:43 PM EDT Saba Spears MD CHEMISTRY ORDERABLE S [facility] [place] [address] * Ferritin (05/19/2024 5:08 PM EDT) Ferritin 191 31 - 409 ng/ml 05/19/2024 6:24 PM EDT [facility] Blood VENOUS BLOOD SPECIMEN / Unknown IP Care Team Draw / Unknown 05/19/2024 5:08 PM EDT 05/19/2024 5:43 PM EDT Saba Spears MD CHEMISTRY ORDERABLE S [facility] [place] [address] * POC, GLUCOSE (05/19/2024 3:59 PM EDT) Glucometer, POC 185 65 - 199 mg/dL 05/19/2024 3:59 PM EDT [facility] Comment:Supplemental ranges: <140 mg/dL before meals <180 mg/dL all other times of the day. Blood CAPILLARY BLOOD / Unknown 05/19/2024 3:59 PM EDT 05/19/2024 3:59 PM EDT Saba Spears MD POINT OF CARE TEST ORDERABLES [facility] [place] [address] * POC, GLUCOSE (05/19/2024 12:32 PM EDT) Glucometer, POC 143 65 - 199 mg/dL 05/19/2024 12:32 PM EDT [facility] Comment:Supplemental ranges: <140 mg/dL before meals <180 mg/dL all other times of the day. Blood CAPILLARY BLOOD / Unknown 05/19/2024 12:32 PM EDT 05/19/2024 12:32 PM EDT Saba Spears MD POINT OF CARE TEST ORDERABLES Performing Organization Address [facility] Co de Phone Number [facility] [place] [address] * POC, GLUCOSE (05/19/2024 8:12 AM EDT) Glucometer, POC 181 65 - 199 mg/dL 05/19/2024 8:13 AM EDT [facility] Comment:Supplemental ranges: <140 mg/dL before meals <180 mg/dL all other times of the day. Blood CAPILLARY BLOOD / Unknown 05/19/2024 8:12 AM EDT 05/19/2024 8:13 AM EDT Saba Spears MD POINT OF CARE TEST ORDERABLES Performing Organization Address [facility] Co de Phone Number [facility] [place] [address] * (ABNORMAL) Magnesium (05/19/2024 5:11 AM EDT) Magnesium 1.08(H) 0.69 - 1.07 mMol/L 05/19/2024 5:58 AM EDT [facility] Blood VENOUS BLOOD SPECIMEN / Unknown IP Care Team Draw / Unknown 05/19/2024 5:11 AM EDT 05/19/2024 5:30 AM EDT Mary De La Fuente MD CHEMISTRY ORDERABL ES Performing Organization Address City/[facility] Co de Phone Number [facility] [place] [address] * (ABNORMAL) Phosphorus (05/19/2024 5:11 AM EDT) Phosphorus 5.1(H) 2.5 - 4.5 mg/dL 05/19/2024 5:58 AM EDT [facility] Blood VENOUS BLOOD SPECIMEN / Unknown IP Care Team Draw / Unknown 05/19/2024 5:11 AM EDT 05/19/2024 5:30 AM EDT Mary De La Fuente MD CHEMISTRY ORDERABL ES [facility] [place] [address] * (ABNORMAL) Basic Metabolic Panel (non-fasting) (05/19/2024 5:11 AM EDT) Glucose 162 65 - 199 mg/dL 05/19/2024 6:53 AM T [facility] Comment:Glucose Concentratio n [...] CHEMISTRY ORDERABL ES [facility] [place] [address] * (ABNORMAL) CBC (with Diff) (05/19/2024 5:11 [...] MD HEMATOLOGY ORDERAB LES Performing Organization Address City/[facility]/ZIP Co de Phone Number [facility] [place] [address] * POC, GLUCOSE (05/19/2024 3:27 AM EDT) Glucometer, POC 171 65 - 199 mg/dL 05/19/2024 3:28 AM EDT [facility] Comment:Supplemental ranges: <140 mg/dL before meals <180 mg/dL all other times of the day. Blood CAPILLARY BLOOD / Unknown 05/19/2024 3:27 AM EDT 05/19/2024 3:28 AM EDT Saba Spears MD POINT OF CARE TEST ORDERABLES [facility] [place] [address] * POC, GLUCOSE (05/19/2024 12:02 AM EDT) Glucometer, POC 183 65 - 199 mg/dL 05/19/2024 12:02 AM EDT [facility] Comment:Supplemental ranges: <140 mg/dL before meals <180 mg/dL all other times of the day. Blood CAPILLARY BLOOD / Unknown 05/19/2024 12:02 AM EDT 05/19/2024 12:02 AM EDT Saba Spears MD POINT OF CARE TEST ORDERABLES Performing Organization Address [facility] Co de Phone Number [facility] [place] [address] * (ABNORMAL) POC, GLUCOSE (05/18/2024 8:05 PM EDT) Glucometer, POC 207(H) 65 - 199 mg/dL 05/18/2024 8:06 PM EDT [facility] Comment:Supplemental ranges: <140 mg/dL before meals <180 mg/dL all other times of the day. Blood CAPILLARY BLOOD / Unknown 05/18/2024 8:05 PM EDT 05/18/2024 8:06 PM EDT Saba Spears MD POINT OF CARE TEST ORDERABLES Performing Organization Address [facility] Co de Phone Number [facility] [place] [address] * POC, GLUCOSE (05/18/2024 6:14 PM EDT) Glucometer, POC 174 65 - 199 mg/dL 05/18/2024 6:15 PM EDT [facility] Comment:Supplemental ranges: <140 mg/dL before meals <180 mg/dL all other times of the day. Blood CAPILLARY BLOOD / Unknown 05/18/2024 6:14 PM EDT 05/18/2024 6:15 PM EDT Saba Spears MD POINT OF CARE TEST ORDERABLES Performing Organization Address City/[facility] Co de Phone Number [facility] [place] [address] * (ABNORMAL) Basic Metabolic Panel (05/18/2024 5:04 PM EDT) Glucose 170 65 - 199 mg/dL 05/18/2024 6:14 PM EDT [facility] Comment:Glucose Concentratio [...] MD CHEMISTRY ORDERABLE S Performing Organization Address City/[facility]/ZIP Co de Phone Number [facility] [place] [address] * (ABNORMAL) POC, GLUCOSE (05/18/2024 11:45 AM EDT) Glucometer, POC 211(H) 65 - 199 mg/dL 05/18/2024 11:45 AM EDT [facility] Comment:Supplemental ranges: <140 mg/dL before meals <180 mg/dL all other times of the day. Blood CAPILLARY BLOOD / Unknown 05/18/2024 11:45 AM EDT 05/18/2024 11:45 AM EDT Saba Spears MD POINT OF CARE TEST ORDERABLES Performing Organization Address [facility]/ZIP Co de Phone Number [facility] [place] [address] * C diff Screen (05/18/2024 11:31 AM [...] - GENE RAL ORDERABLES Performing Organization Address City/[facility]/ZIP Co de Phone Number [facility] [place] [address] * C Diff PCR (05/18/2024 11:31 AM EDT) Stool STOOL SPECIMEN / Unknown Non Blood Collection / Unknown 05/18/2024 11:31 AM EDT 05/18/2024 12:09 PM EDT Saba Spears MD MICROBIOLOGY - GENE RAL ORDERABLES [facility] [place] [address] * Creatinine, urine, random (05/18/2024 8:57 AM EDT) Creatinine, Urine 44 mg/dL 05/18/2024 9:36 AM EDT [facility] Urine URINE SPECIMEN / Unknown Non Blood Collection / Unknown 05/18/2024 8:57 AM EDT 05/18/2024 9:07 AM EDT Saba Spears MD URINE ORDERABLES [facility] [place] [address] * Electrolytes, urine, random (05/18/2024 8:57 AM [...] AM EDT Saba Spears MD URINE ORDERABLES [facility] [place] [address] * POC, GLUCOSE (05/18/2024 8:34 AM EDT) Glucometer, POC 182 65 - 199 mg/dL 05/18/2024 8:35 AM EDT [facility] Comment:Supplemental ranges: <140 mg/dL before meals <180 mg/dL all other times of the day. Blood CAPILLARY BLOOD / Unknown 05/18/2024 8:34 AM EDT 05/18/2024 8:35 AM EDT Saba Spears MD POINT OF CARE TEST ORDERABLES Performing Organization Address [facility] Co de Phone Number [facility] [place] [address] * POC, GLUCOSE (05/18/2024 4:10 AM EDT) Glucometer, POC 163 65 - 199 mg/dL 05/18/2024 4:10 AM EDT [facility] Comment:Supplemental ranges: <140 mg/dL before meals <180 mg/dL all other times of the day. Blood CAPILLARY BLOOD / Unknown 05/18/2024 4:10 AM EDT 05/18/2024 4:11 AM EDT Saba Spears MD POINT OF CARE TEST ORDERABLES Performing Organization Address City/[facility]/ZIP Co de Phone Number [facility] [place] [address] * (ABNORMAL) CBC (with Diff) (05/18/2024 4:01 AM EDT) White Blood Cell 9.84(H) 4.00 - 9.50 x10(3)/mc L 05/18/2024 4:19 AM EDT [facility] Red Blood Cell 3.24(L) 4.58 - 5.54 x10(6)/mc L 05/18/2024 4:19 AM EDT [facility] Hemoglobin 9.6(L) 13.7 - 16.5 g/dL [...] MD HEMATOLOGY ORDERAB LES Performing Organization Address City/State/[facility] Co de Phone Number [facility] [place] [address] * (ABNORMAL) Magnesium (05/18/2024 4:00 AM EDT) Magnesium 1.09(H) 0.69 - 1.07 mMol/L 05/18/2024 10:11 AM EDT [facility] Blood VENOUS BLOOD SPECIMEN / Unknown IP Care Team Draw / Unknown 05/18/2024 4:00 AM EDT 05/18/2024 4:13 AM EDT Mary De La Fuente MD CHEMISTRY ORDERABL ES Performing Organization Address City/[facility]/ZIP Co de Phone Number [facility] [place] [address] * (ABNORMAL) Phosphorus (05/18/2024 4:00 AM EDT) Phosphorus 4.7(H) 2.5 - 4.5 mg/dL 05/18/2024 10:11 AM EDT [facility] Blood VENOUS BLOOD SPECIMEN / Unknown IP Care Team Draw / Unknown 05/18/2024 4:00 AM EDT 05/18/2024 4:13 AM EDT Mary De La Fuente MD CHEMISTRY ORDERABL ES Performing Organization Address [facility] Co de Phone Number [facility] [place] [address] * (ABNORMAL) Basic Metabolic Panel (non-fasting) (05/18/2024 [...] CHEMISTRY ORDERABL ES [facility] [place] [address] * (ABNORMAL) POC, GLUCOSE (05/17/2024 11:30 PM EDT) [facility] Signature Glucometer, POC 232(H) 65 - 199 mg/dL 05/17/2024 11:30 PM EDT [facility] Comment:Supplemental ranges: <140 mg/dL before meals <180 mg/dL all other times of the day. Blood CAPILLARY BLOOD / Unknown 05/17/2024 11:30 PM EDT 05/17/2024 11:30 PM EDT Saba Spears MD POINT OF CARE TEST ORDERABLES Performing Organization Address City/[facility] Co de Phone Number [facility] [place] [address] * POC, GLUCOSE (05/17/2024 8:12 PM EDT) Glucometer, POC 161 65 - 199 mg/dL 05/17/2024 8:12 PM EDT [facility] Comment:Supplemental ranges: <140 mg/dL before meals <180 mg/dL all other times of the day. Blood CAPILLARY BLOOD / Unknown 05/17/2024 8:12 PM EDT 05/17/2024 8:13 PM EDT Saba Spears MD POINT OF CARE TEST ORDERABLES Performing Organization Address [facility] Co de Phone Number [facility] [place] [address] * POC, GLUCOSE (05/17/2024 5:35 PM EDT) Glucometer, POC 167 65 - 199 mg/dL 05/17/2024 5:35 PM EDT [facility] Comment:Supplemental ranges: <140 mg/dL before meals <180 mg/dL all other times of the day. Blood CAPILLARY BLOOD / Unknown 05/17/2024 5:35 PM EDT 05/17/2024 5:35 PM EDT Saba Spears MD POINT OF CARE TEST ORDERABLES Performing Organization Address City/[facility]/ZIP Co de Phone Number [facility] [place] [address] * POC, GLUCOSE (05/17/2024 12:50 PM EDT) Glucometer, POC 147 65 - 199 mg/dL 05/17/2024 12:50 PM EDT [facility] Comment:Supplemental ranges: <140 mg/dL before meals <180 mg/dL all other times of the day. Blood CAPILLARY BLOOD / Unknown 05/17/2024 12:50 PM EDT 05/17/2024 12:50 PM EDT Saba Spears MD POINT OF CARE TEST ORDERABLES Performing Organization Address [facility]/ZIP Co de Phone Number [facility] [place] [address] * POC, GLUCOSE (05/17/2024 8:20 AM EDT) Glucometer, POC 139 65 - 199 mg/dL 05/17/2024 8:21 AM EDT [facility] Comment:Supplemental ranges: <140 mg/dL before meals <180 mg/dL all other times of the day. Blood CAPILLARY BLOOD / Unknown 05/17/2024 8:20 AM EDT 05/17/2024 8:21 AM EDT Treva Diaz MD POINT OF CARE TEST ORDERABLES Performing Organization Address [facility]/ZIP Co de Phone Number [facility] [place] [address] * (ABNORMAL) Magnesium (05/17/2024 5:49 AM EDT) Magnesium 1.14(H) 0.69 - 1.07 mMol/L 05/17/2024 6:58 AM EDT [facility] Blood IP Care Team Dra reilly / Nick 05/17/2024 5:49 AM EDT 05/17/2024 6:13 AM EDT aMry De La Fuente MD CHEMISTRY ORDERABL ES Performing Organization Address [facility] Co de Phone Number [facility] [place] [address] * (ABNORMAL) Phosphorus (05/17/2024 5:49 AM EDT) Phosphorus 5.6(H) 2.5 - 4.5 mg/dL 05/17/2024 6:58 AM EDT [facility] Blood IP Care Team w / Nick 05/17/2024 5:49 AM EDT 05/17/2024 6:13 AM EDT Mary De La Fuente MD CHEMISTRY ORDERABL ES [facility] [place] [address] * (ABNORMAL) Basic Metabolic Panel (non-fasting) (05/17/2024 5:49 AM EDT) Glucose 131 65 - 199 mg/dL 05/17/2024 6:58 AM EDT [facility] Comment:Glucose Concentratio n >=200 mg/dL plus symptoms is consistent with Diabetes Mellitus. Blood Urea Nitrogen 86(H) 10 - 20 mg/dL 05/17/2024 6:58 AM EDT [facility] Creatinine 3.07(H) 0.80 - 1.50 mg/dL 05/17/2024 6:58 AM EDT [facility] Sodium 134(L) 135 - 145 mMol/L 05/17/2024 6:58 AM T [facility] Potassium 5.0 3.5 - 5.0 mMol/L 05/17/2024 6:58 AM EDT [facility] Chloride 103 98 - 107 mMol/L 05/17/2024 6:58 AM [facility] Carbon Dioxide 21(L) 22 - 31 mMol/L 05/17/2024 6:58 AM EDT [facility] Anion Gap 10 5 - 15 mMol/L 05/17/2024 6:58 AM T [facility] Calcium 8.7 8.5 - 10.5 mg/dL 05/17/2024 6:58 AM EDT [facility] Est Glomerular Filtration Rate - Male 21 mL/min/1. 73 m?? 05/17/2024 6:58 AM EDT [facility] Comment: [...] Fasting Status No 05/17/2024 6:58 AM EDT [facility] Blood IP Care Team Gia w / Unknown 05/17/2024 5:49 AM EDT 05/17/2024 6:13 AM EDT Mary De La Fuente MD CHEMISTRY ORDERABL ES [facility] [place] [address] * (ABNORMAL) CBC (with Diff) (05/17/2024 5:49 AM EDT) White Blood Cell 8.61 4.00 - 9.50 x10(3)/mc L [facility] Red Blood Cell 3.54(L) 4.58 - 5.54 x10(6)/mc L 05/17/2024 6:28 AM [facility] Hemoglobin 10.5(L) 13.7 - 16.5 g/dL 05/17/2024 6:28 AM [facility] Hematocrit 33.9(L) 40.5 - 48.5 % 05/17/2024 6:28 AM EDT [facility] Mean Cell Volume 95.8(H) 82.9 - [...] [facility] Blood IP Care Team Dra reilly / Nick 05/17/2024 5:49 AM EDT 05/17/2024 6:13 AM EDT Mary De La Fuente MD HEMATOLOGY ORDERAB LES Performing Organization Address City/[facility]/ZIP Co de Phone Number [facility] [place] [address] * Vancomycin Level, Random (05/17/2024 5:49 AM EDT) Vancomycin, Random 22.4 mg/L 2023 6:58 AM EDT [facility] Comment:This level is for de termination of the patient's vancomycin vdhp-avhcz-eaj-curve (AUC) value. Contact the inpatient pharmacy for interpretation. Blood IP Care Team Dra reilly / Nick 05/17/2024 5:49 AM EDT 05/17/2024 6:13 AM EDT Treva Diaz MD CHEMISTRY ORDERABL ES [facility] [place] [address] * POC, GLUCOSE (05/17/2024 3:54 AM EDT) Glucometer, POC 135 65 - 199 mg/dL 05/17/2024 3:55 AM EDT [facility] Comment:Supplemental ranges: <140 mg/dL before meals <180 mg/dL all other times of the day. Blood CAPILLARY BLOOD / Unknown 05/17/2024 3:54 AM EDT 05/17/2024 3:55 AM EDT Treva Diaz MD POINT OF CARE TEST ORDERABLES [facility] [place] [address] * POCT Glucose (05/16/2024 11:46 PM EDT) Glucose, POC 148 65 - 199 mg/dL [facility] Comment: Supplemental ranges: <140 mg/dL before meals <180 mg/dL all other times of the day Blood 05/16/2024 11:4 6 PM EDT 05/16/2024 11:46 PM EDT Treva Diaz MD POINT OF CARE TEST ORDERABLES [facility] [place] [address] * POCT Glucose (05/16/2024 9:06 PM EDT) Glucose, POC 191 65 - 199 mg/dL [facility] Comment: Supplemental ranges: <140 mg/dL before meals <180 mg/dL all other times of the day Blood 05/16/2024 9:06 PM EDT 05/16/2024 9:06 PM EDT Treva Diaz MD POINT OF CARE TEST ORDERABLES [facility] [place] [address] * POCT Glucose (05/16/2024 8:04 PM EDT) Glucose, POC 199 65 - 199 mg/dL [facility] Comment: Supplemental ranges: <140 mg/dL before meals <180 mg/dL all other times of the day Blood 05/16/2024 8:04 PM EDT 05/16/2024 8:04 PM EDT Treva Diaz MD POINT OF CARE TEST ORDERABLES [facility] [place] [address] * POCT Glucose (05/16/2024 4:51 PM EDT) Glucose, POC 162 65 - 199 mg/dL [facility] Comment: Supplemental ranges: <140 mg/dL before meals <180 mg/dL all other times of the day Blood 05/16/2024 4:51 PM EDT 05/16/2024 4:51 PM EDT Treva Diaz MD POINT OF CARE TEST ORDERABLES Performing Organization Address City/[facility]/ZIP Co de Phone Number [facility] [place] [address] * POCT Glucose (05/16/2024 12:48 PM EDT) Glucose, POC 153 65 - 199 mg/dL [facility] Comment: Supplemental ranges: <140 mg/dL before meals <180 mg/dL all other times of the day Blood 05/16/2024 12:4 8 PM EDT 05/16/2024 12:48 PM EDT Treva Diaz MD POINT OF CARE TEST ORDERABLES [facility] [place] [address] * POCT Glucose (05/16/2024 8:45 AM EDT) Glucose, POC 165 65 - 199 mg/dL [facility] Comment: Supplemental ranges: <140 mg/dL before meals <180 mg/dL all other times of the day Blood 05/16/2024 8:45 AM EDT 05/16/2024 8:45 AM EDT Treva Diaz MD POINT OF CARE TEST ORDERABLES [facility] [place] [address] * (ABNORMAL) Differential, Automated (05/16/2024 5:14 AM EDT) Neutrophil % 79.4 % [facility] Neutrophil Absolute 9.22(H) 1.70 - 6.10 x10(3)/mc L [facility] Lymph % 6.6 % [facility] Lymphocytes Abs 0.8(L) 0.9 - 3.2 x10(3)/ L [facility] Monocyte % 9.5 % [facility] Monocyte Abs 1.1(H) 0.3 - 0.9 x10(3)/mc L [facility] Eos % 0.0 % [facility] Eosinophils Abs 0.0 0.0 - 0.4 x10(3)/ L [facility] Basophil % 0.2 % [facility] Baso Absolute 0.0 0.0 - [...] MD HEMATOLOGY OR DERABLES Performing Organization Address City/[facility]/ZIP Co [place] [address] * (ABNORMAL) Hemogram (05/16/2024 5:14 AM EDT) White Blood Cell 11.6(H) 4.0 - 9.5 x10(3)/mc L [facility] Red Blood Cell 3.59(L) 4.58 - 5.54 x10(6)/mc L [facility] Hemoglobin 10.5(L) 13.7 - 16.5 g/dL [facility] Hematocrit 33.8(L) 40.5 - 48.5 % [facility] Mean Cell Volume 94.2(H) 82.9 - 93.1 [facility] Mean Cell Hemoglobin 29.2 27.5 - 32.1 pg [facility] Mean Cell Hemoglobin Concentration 31.1(L) 32.0 - 35.7 g/dL [facility] Platelet 317 145 - 357 x10(3)/mc L [facility] RDW Standard Deviation 55.1(H) 36.0 - 45.0 [facility] RDW coefficient of variation 15.9(H) 11.4 - 13.8 % [facility] Mean Platelet Volume 10.6 7.6 - 12.9 [facility] NRBC% auto 0.0 % [facility] NRBC Absolute 0.000 0.000 - 0.000 x10(3)/mc L [facility] Blood 05/16/2024 5:14 AM EDT 05/16/2024 5:38 AM EDT Narrative Resulting Agency Comment Spec In Lab Carlotta Davis MD HEMATOLOGY OR DERABLES Performing Organization Address City/[facility]/ZIP Co de Phone Number [facility] [place] [address] * (ABNORMAL) Magnesium (05/16/2024 5:14 AM EDT) Magnesium 1.22(H) 0.69 - 1.07 mmol/L [facility] Blood 05/16/2024 5:14 AM EDT 05/16/2024 5:38 AM EDT Narrative Resulting Agency Comment Spec In Lab Mary De La Fuente MD CHEMISTRY ORDERABL ES Performing Organization Address [facility] Co de Phone Number [facility] [place] [address] * (ABNORMAL) Phosphorus (05/16/2024 5:14 AM EDT) Pathologist [facility] Phosphorus 6.3(H) 2.5 - 4.5 mg/dL [facility] Blood 05/16/2024 5:14 AM EDT 05/16/2024 5:38 AM EDT Narrative Resulting Agency Comment Spec In Lab Mary De La Fuente MD CHEMISTRY ORDERABL ES Performing Organization Address [facility] Co de Phone Number [facility] [place] [address] * (ABNORMAL) Basic Metabolic Panel (non-fasting) (05/16/2024 5:14 AM EDT) Pathologist [facility] Glucose 154 65 - 199 mg/dL [facility] [...] MD CHEMISTRY ORDERABL ES Performing Organization Address [facility] Co de Phone Number [facility] [place] [address] * Vancomycin Level, Random (05/16/2024 5:14 AM EDT) Vancomycin, Random 29.1 mg/L M [facility] Comment: This level is for determination of the patient's vancomycin xmgo-nqjmh-zrj-curve (AUC) value. Contact the inpatient pharmacy for interpretation. Blood 05/16/2024 5:14 AM EDT 05/16/2024 5:38 AM EDT Treva Diaz MD CHEMISTRY ORDERABL ES Performing Organization Address City/[facility]/ZIP Co de Phone Number [facility] [place] [address] * POCT Glucose (05/16/2024 3:53 AM EDT) Glucose, POC 166 65 - 199 mg/dL [facility] Comment: Supplemental ranges: <140 mg/dL before meals <180 mg/dL all other times of the day Blood 05/16/2024 3:53 AM EDT 05/16/2024 3:53 AM EDT Treva Diaz MD POINT OF CARE TEST ORDERABLES [facility] [place] [address] * POCT Glucose (05/15/2024 11:41 PM EDT) Glucose, POC 171 65 - 199 mg/dL [facility] Comment: Supplemental ranges: <140 mg/dL before meals <180 mg/dL all other times of the day Blood 05/15/2024 11:4 1 PM EDT 05/15/2024 11:41 PM EDT Treva Diaz MD POINT OF CARE TEST ORDERABLES [facility] [place] [address] * POCT Glucose (05/15/2024 10:32 PM EDT) Glucose, POC 183 65 - 199 mg/dL [facility] Comment: Supplemental ranges: <140 mg/dL before meals <180 mg/dL all other times of the day Blood 05/15/2024 10:3 2 PM EDT 05/15/2024 10:32 PM EDT Treva Diaz MD POINT OF CARE TEST ORDERABLES [facility] [place] [address] * POCT Glucose (05/15/2024 7:53 PM EDT) Glucose, POC 187 65 - 199 mg/dL [facility] Comment: Supplemental ranges: <140 mg/dL before meals <180 mg/dL all other times of the day Blood 05/15/2024 7:53 PM EDT 05/15/2024 7:53 PM EDT Treva Diaz MD POINT OF CARE TEST ORDERABLES Performing Organization Address [facility]/ZIP Co de Phone Number [facility] [place] [address] * MRSA PCR Screen ([facility]/CGP/APD/NLH) (05/15/2024 4:15 PM EDT) [facility] MRSA PCR Negative Negative [facility] MRSA (Interp) Methicillin-resist ant Staphylococcus aureus (MRSA) is NOT DETECTED The MRSA target DNA sequences (mec and SCC) were not detected within the acceptable ranges using the Xpert MRSA NxG on the GeneXpert Dx System ([employer]). This suggests the absence of MRSA in the patient specimen submitted for testing. This test is cleared by the U.S. Food and Drug Administration for clinical use and its performance characteristics have been verified by the [facility] at [facility]. This result does not rule [...] MD MOLECULAR ORDERABL ES Performing Organization Address [facility]/ZIP Co de Phone Number [facility] [place] [address] * (ABNORMAL) POCT Glucose (05/15/2024 3:20 PM EDT) Glucose, POC 224(H) 65 - 199 mg/dL [facility] Comment: Supplemental ranges: <140 mg/dL before meals <180 mg/dL all other times of the day Blood 05/15/2024 3:20 PM EDT 05/15/2024 3:20 PM EDT Treva Diaz MD POINT OF CARE TEST ORDERABLES [facility] [place] [address] * (ABNORMAL) POCT Glucose (05/15/2024 11:39 AM EDT) Glucose, POC 213(H) 65 - 199 mg/dL [facility] Comment: Supplemental ranges: <140 mg/dL before meals <180 mg/dL all other times of the day Blood 05/15/2024 11:3 9 AM EDT 05/15/2024 11:39 AM EDT Treva Diaz MD POINT OF CARE TEST ORDERABLES [facility] [place] [address] * POCT Glucose (05/15/2024 8:02 AM EDT) Glucose, POC 190 65 - 199 mg/dL [facility] Comment: Supplemental ranges: <140 mg/dL before meals <180 mg/dL all other times of the day Blood 05/15/2024 8:02 AM EDT 05/15/2024 8:02 AM EDT Treva Diaz MD POINT OF CARE TEST ORDERABLES [facility] [place] [address] * (ABNORMAL) Differential, Automated (05/15/2024 5:12 AM EDT) Neutrophil % 85.3 % [facility] Neutrophil Absolute 11.37(H) 1.70 - 6.10 x10(3)/mc L [facility] Lymph % 3.7 % [facility] Lymphocytes Abs 0.5(L) 0.9 - 3.2 x10(3)/mc L [facility] Monocyte % 9.1 % [facility] Monocyte Abs 1.2(H) 0.3 - 0.9 x10(3)/mc L [facility] Eos % 0.0 % [facility] Eosinophils Abs 0.0 0.0 - 0.4 x10(3)/[facility] Basophil % 0.1 % [facility] Baso Absolute 0.0 0.0 - 0.1 x10(3)/mc L [facility] Immature Gran % 1.80 % [facility] Comment: Immature granulocytes(IG's)percentage and absolute count will include metamyelocytes, myelocytes, and promyelocytes. Blood smears from CBCs yielding IG's will be scanned manually for concordance. If this scan disagrees with the automated IG or if promyelocytes are noted, a manual differential will be performed. Immature Gran Absolute 0.24(H) 0.00 - 0.04 x10(3)/mc L [facility] Blood 05/15/2024 5:12 AM EDT 05/15/2024 5:38 AM EDT Narrative Resulting Agency Comment Spec In Lab Carlotta Davis MD HEMATOLOGY OR DERABLES [facility] [place] [address] * (ABNORMAL) Hemogram (05/15/2024 5:12 AM EDT) White Blood Cell 13.4(H) 4.0 - 9.5 x10(3)/[facility] Red Blood Cell 3.58(L) 4.58 [...] HOSPITAL LABORATORY Platelet 227 145 - 357 x10(3)/[facility] RDW Standard Deviation 55.8(H) 36.0 - 45.0 [facility] RDW coefficient of variation 15.8(H) 11.4 - 13.8 % [facility] Mean Platelet Volume 10.7 7.6 - 12.9 [facility] NRBC% auto 0.0 % [facility] NRBC Absolute 0.000 0.000 - 0.000 x10(3)/[facility] Blood 05/15/2024 5:12 AM EDT 05/15/2024 5:38 AM EDT Narrative Resulting Agency Comment Spec In Lab Carlotta Davis MD HEMATOLOGY OR DERABLES [facility] [place] [address] * (ABNORMAL) Magnesium (05/15/2024 5:12 AM EDT) Magnesium 1.21(H) 0.69 - 1.07 mmol/L [facility] Blood 05/15/2024 5:12 AM EDT 05/15/2024 5:38 AM EDT Narrative Resulting Agency Comment Spec In Lab Mary De La Fuente MD CHEMISTRY ORDERABL ES Performing Organization Address [facility]/ZIP Co de Phone Number [facility] [place] [address] * (ABNORMAL) Phosphorus (05/15/2024 5:12 AM EDT) Phosphorus 6.5(H) 2.5 - 4.5 mg/dL [facility] Comment:result rechecked-HN Blood 05/15/2024 5:12 AM EDT 05/15/2024 5:38 AM EDT Narrative Resulting Agency Comment Spec In Lab Mary De La Fuente MD CHEMISTRY ORDERABL ES Performing Organization Address [facility] Co de Phone Number [facility] [place] [address] * (ABNORMAL) Basic Metabolic Panel (non-fasting) (05/15/2024 [...] MD CHEMISTRY ORDERABL ES Performing Organization Address City/[facility]/ZIP Co de Phone Number [facility] [place] [address] * (ABNORMAL) POCT Glucose (05/15/2024 4:55 AM EDT) Glucose, POC 223(H) 65 - 199 mg/dL [facility] Comment: Supplemental ranges: <140 mg/dL before meals <180 mg/dL all other times of the day Blood 05/15/2024 4:55 AM EDT 05/15/2024 4:55 AM EDT Treva Diaz MD POINT OF CARE TEST ORDERABLES [facility] [place] [address] * (ABNORMAL) POCT Glucose (05/15/2024 2:51 AM EDT) Glucose, POC 279(H) 65 - 199 mg/dL [facility] Comment: Supplemental ranges: <140 mg/dL before meals <180 mg/dL all other times of the day Blood 05/15/2024 2:51 AM EDT 05/15/2024 2:51 AM EDT Treva Diaz MD POINT OF CARE TEST ORDERABLES [facility] [place] [address] * (ABNORMAL) POCT Glucose (05/14/2024 9:03 PM EDT) Glucose, POC 257(H) 65 - 199 mg/dL [facility] Comment: Supplemental ranges: <140 mg/dL before meals <180 mg/dL all other times of the day Blood 05/14/2024 9:03 PM EDT 05/14/2024 9:03 PM EDT Treva Diaz MD POINT OF CARE TEST ORDERABLES Performing Organization Address City/[facility]/ZIP Co de Phone Number [facility] [place] [address] * (ABNORMAL) POCT Glucose (05/14/2024 7:15 PM EDT) Glucose, POC 207(H) 65 - 199 mg/dL [facility] Comment: Supplemental ranges: <140 mg/dL before meals <180 mg/dL all other times of the day Blood 05/14/2024 7:15 PM EDT 05/14/2024 7:15 PM EDT Treva Diaz MD POINT OF CARE TEST ORDERABLES [facility] [place] [address] * POCT Glucose (05/14/2024 4:47 PM EDT) Glucose, POC 188 65 - 199 mg/dL [facility] Comment: Supplemental ranges: <140 mg/dL before meals <180 mg/dL all other times of the day Blood 05/14/2024 4:47 PM EDT 05/14/2024 4:47 PM EDT Treva Diaz MD POINT OF CARE TEST ORDERABLES Performing Organization Address [facility]/ZIP Co de Phone Number [facility] [place] [address] * POCT Glucose (05/14/2024 1:21 PM EDT) Glucose, POC 163 65 - 199 mg/dL [facility] Comment: Supplemental ranges: <140 mg/dL before meals <180 mg/dL all other times of the day Blood 05/14/2024 1:21 PM EDT 05/14/2024 1:21 PM EDT Treva Diaz MD POINT OF CARE TEST ORDERABLES Performing Organization Address [facility]/ZIP Co de Phone Number [facility] [place] [address] * Anaerobic Culture (05/14/2024 11:33 AM EDT) Anaerobic Culture No anaerobic organisms isolated [facility] Toe 05/14/2024 11:3 3 AM EDT 05/14/2024 12:33 PM EDT Comment:PROXIMAL RIGHT 2ND T OE Narrative Resulting Agency Comment Spec In Lab Gennaro Meyers MD MICROBIOLOGY - GENE RAL ORDERABLES Performing Organization Address [facility]/ZIP Co de Phone Number [facility] [place] [address] * (ABNORMAL) Tissue culture (05/14/2024 11:33 AM [...] Sensitive Comment:Gentamicin i s not appropriate for Cobb-therapy. Coagulase Negative Staphylococcus species Levofloxacin MICROSCAN METHOD [...] METHOD Sensitive Gennaro Meyers MD MICROBIOLOGY - [facility] ORDERABLES [facility] [place] [address] * Surgical Pathology Report (05/14/2024 11:32 AM EDT) Surgical Pathology Report [id number] ? Location: [id number]; A The signing [...] MD, Shima Verified: ??05/20/2024 11:25 Performed at: ??-[facility] Dept. of Pathology, [place] [address] Parent Partner: Polly Barnhart MD, FCAP, ??CLIA Certificate: [id number] SPECIMEN(S) SUBMITTED A - RIGHT 2ND TOE, [...] Sections/Processi ng: Blocks submitted for decalcification: A1-A2. [employer]vertising Display Rotator sections in 2 cassettes as follows: ?A1-A2: ??Longitudinal section of digit ??cmk [facility] 05/14/2024 11:3 2 AM EDT Gennaro Meyers MD PATHOLOGY/CYTOLOGY ORDERABLES [facility] [place] [address] * Specimen to Pathology (05/14/2024 11:32 AM EDT) AP Specimen 05/14/2024 11:3 2 AM EDT 05/14/2024 11:32 AM EDT Narrative [facility] - 05/14/2024 11:32 AM EDT Specimen requisition ordered. ??Separate Pathology report to follow Treva Diaz MD PATHOLOGY/CYTOLOGY ORDERABLES Performing Organization Address City/[facility]/ZIP Co [place] [address] * (ABNORMAL) POCT Glucose (05/14/2024 7:58 AM EDT) [facility] Glucose, POC 203(H) 65 - 199 mg/dL [facility] Comment: Supplemental ranges: <140 mg/dL before meals <180 mg/dL all other times of the day Blood 05/14/2024 7:58 AM EDT 05/14/2024 7:58 AM EDT Treva Diaz MD POINT OF CARE TEST ORDERABLES Performing Organization Address City/[facility]/ZIP Co de Phone Number [facility] [place] [address] * (ABNORMAL) Differential, Automated (05/14/2024 5:01 AM EDT) [facility] Neutrophil % 80.5 % [facility] Neutrophil Absolute 12.45(H) 1.70 - 6.10 x10(3)/mc L [facility] Lymph % 5.5 % [facility] Lymphocytes Abs 0.8(L) 0.9 - 3.2 x10(3)/mc L [facility] Monocyte % 12.6 % [facility] Monocyte Abs 2.0(H) 0.3 - 0.9 x10(3)/mc L [facility] Eos % 0.3 % [facility] Eosinophils Abs 0.0 0.0 - 0.4 x10(3)/mc L [facility] Basophil % 0.2 % [facility] Baso Absolute 0.0 0.0 - [...] Absolute 0.14(H) 0.00 - 0.04 x10(3)/mc L [facility] Blood 05/14/2024 5:01 AM EDT 05/14/2024 6:02 AM EDT Narrative Resulting Agency Comment Spec In Lab Carlotta Davis MD HEMATOLOGY OR DERABLES [facility] [place] [address] * (ABNORMAL) Hemogram (05/14/2024 5:01 AM EDT) [...] [facility] NRBC% auto 0.0 % [facility] NRBC Absolute 0.000 0.000 - 0.000 x10(3)/mc L [facility] Blood 05/14/2024 5:01 AM EDT 05/14/2024 6:02 AM EDT Narrative Resulting Agency Comment Spec In Lab Carlotta Davis MD HEMATOLOGY OR DERABLES Performing Organization Address [facility] Co de Phone Number [facility] [place] [address] * Magnesium (05/14/2024 5:01 AM EDT) Magnesium 0.98 0.69 - 1.07 mmol/L [facility] Blood 05/14/2024 5:01 AM EDT 05/14/2024 6:02 AM EDT Narrative Resulting Agency Comment Spec In Lab Mary De La Fuente MD CHEMISTRY ORDERABL ES Performing Organization Address [facility] Co de Phone Number [facility] [place] [address] * Phosphorus (05/14/2024 5:01 AM EDT) Phosphorus 2.8 2.5 - 4.5 mg/dL [facility] Blood 05/14/2024 5:01 AM EDT 05/14/2024 6:02 AM EDT Narrative Resulting Agency Comment Spec In Lab Mary De La Fuente MD CHEMISTRY ORDERABL ES Performing Organization Address [facility] Co de Phone Number [facility] [place] [address] * (ABNORMAL) Basic Metabolic Panel (non-fasting) (05/14/2024 [...] CHEMISTRY ORDERABL ES [facility] [place] [address] * Vancomycin Level, Random (05/14/2024 5:01 AM EDT) Vancomycin, Random 13.5 mg/L [facility] Comment: This level is for determination of the patient's vancomycin xllx-priga-dkf-curve (AUC) value. Contact the inpatient pharmacy for interpretation. Blood 05/14/2024 5:01 AM EDT 05/14/2024 6:02 AM EDT Treva Diaz MD CHEMISTRY ORDERABL ES [facility] [place] [address] * POCT Glucose (05/13/2024 8:41 PM EDT) Glucose, POC 179 65 - 199 mg/dL [facility] Comment: Supplemental ranges: <140 mg/dL before meals <180 mg/dL all other times of the day Blood 05/13/2024 8:41 PM EDT 05/13/2024 8:41 PM EDT Treva Diaz MD POINT OF CARE TEST ORDERABLES [facility] [place] [address] * POCT Glucose (05/13/2024 6:06 PM EDT) Glucose, POC 135 65 - 199 mg/dL [facility] Comment: Supplemental ranges: <140 mg/dL before meals <180 mg/dL all other times of the day Blood 05/13/2024 6:06 PM EDT 05/13/2024 6:06 PM EDT Treva Diaz MD POINT OF CARE TEST ORDERABLES [facility] [place] [address] * POCT Glucose (05/13/2024 11:12 AM EDT) Glucose, POC 163 65 - 199 mg/dL [facility] Comment: Supplemental ranges: <140 mg/dL before meals <180 mg/dL all other times of the day Blood 05/13/2024 11:1 2 AM EDT 05/13/2024 11:12 AM EDT Treva Diaz MD POINT OF CARE TEST ORDERABLES Performing Organization Address City/[facility]/ZIP Co de Phone Number [facility] [place] [address] * POCT Glucose (05/13/2024 7:47 AM EDT) Glucose, POC 194 65 - 199 mg/dL [facility] Comment: Supplemental ranges: <140 mg/dL before meals <180 mg/dL all other times of the day Blood 05/13/2024 7:47 AM EDT 05/13/2024 7:47 AM EDT Treva Diaz MD POINT OF CARE TEST ORDERABLES Performing Organization Address [facility]/ZIP Co de Phone Number [facility] [place] [address] * Scan, Peripheral Blood (05/13/2024 5:29 AM EDT) Plat estimate Normal [facility] RBC Morphology Abnormal [facility] Edgar Cells 1-5 /HPF [facility] Plat, Giant Less than 1 /HPF [facility] Blood 05/13/2024 5:29 AM EDT 05/13/2024 5:49 AM EDT Narrative Resulting Agency Comment Spec In Lab Carlotta Davis MD HEMATOLOGY OR DERABLES Performing Organization Address City/[facility]/ZIP Co de Phone Number [facility] [place] [address] * (ABNORMAL) Differential, Automated (05/13/2024 5:29 AM EDT) [facility] Neutrophil % 81.8 % [facility] Neutrophil Absolute 12.66(H) 1.70 - 6.10 x10(3)/mc L [facility] Lymph % 5.0 % [facility] Lymphocytes Abs 0.8(L) 0.9 - 3.2 x10(3)/mc L [facility] Monocyte % 12.3 % [facility] Monocyte Abs 1.9(H) 0.3 - 0.9 x10(3)/mc L [facility] Eos % 0.2 % [facility] Eosinophils Abs 0.0 0.0 - 0.4 x10(3)/ L [facility] Basophil % 0.1 % [facility] Baso Absolute 0.0 0.0 - [...] HEMATOLOGY OR DERABLES [facility] [place] [address] * (ABNORMAL) Hemogram (05/13/2024 5:29 AM EDT) [...] HOSPITAL LABORATORY Platelet 186 145 - 357 x10(3)/[facility] RDW Standard Deviation 53.0(H) 36.0 - 45.0 [facility] RDW coefficient of variation 15.8(H) 11.4 - 13.8 % [facility] Mean Platelet Volume 11.8 7.6 - 12.9 [facility] NRBC% auto 0.0 % [facility] NRBC Absolute 0.000 0.000 - 0.000 x10(3)/[facility] Blood 05/13/2024 5:29 AM EDT 05/13/2024 5:49 AM EDT Narrative Resulting Agency Comment Spec In Lab Carlotta Davis MD HEMATOLOGY OR DERABLES [facility] [place] [address] * Magnesium (05/13/2024 5:29 AM EDT) Pathologist [facility] Magnesium 0.99 0.69 - 1.07 mmol/L [facility] Blood 05/13/2024 5:29 AM EDT 05/13/2024 5:49 AM EDT Narrative Resulting Agency Comment Spec In Lab Mary De La Fuente MD CHEMISTRY ORDERABL ES Performing Organization Address City/[facility]/ZIP Co de Phone Number [facility] [place] [address] * Phosphorus (05/13/2024 5:29 AM EDT) Phosphorus 2.7 2.5 - 4.5 mg/dL [facility] Blood 05/13/2024 5:29 AM EDT 05/13/2024 5:49 AM EDT Narrative Resulting Agency Comment Spec In Lab Mary De La Fuente MD CHEMISTRY ORDERABL ES Performing Organization Address [facility] Co de Phone Number [facility] [place] [address] * (ABNORMAL) Basic Metabolic Panel (non-fasting) (05/13/2024 [...] MD CHEMISTRY ORDERABL ES Performing Organization Address [facility] Co de Phone Number [facility] [place] [address] * POCT Glucose (05/12/2024 11:46 PM EDT) Glucose, POC 165 65 - 199 mg/dL [facility] Comment: Supplemental ranges: <140 mg/dL before meals <180 mg/dL all other times of the day Blood 05/12/2024 11:4 6 PM EDT 05/12/2024 11:46 PM EDT Treva Diaz MD POINT OF CARE TEST ORDERABLES Performing Organization Address City/[facility]/ZIP Co de Phone Number [facility] [place] [address] * POCT Glucose (05/12/2024 8:36 PM EDT) Glucose, POC 164 65 - 199 mg/dL [facility] Comment: Supplemental ranges: <140 mg/dL before meals <180 mg/dL all other times of the day Blood 05/12/2024 8:36 PM EDT 05/12/2024 8:36 PM EDT Treva Diaz MD POINT OF CARE TEST ORDERABLES Performing Organization Address [facility] Co de Phone Number [facility] [place] [address] * POCT Glucose (05/12/2024 5:38 PM EDT) Glucose, POC 175 65 - 199 mg/dL [facility] Comment: Supplemental ranges: <140 mg/dL before meals <180 mg/dL all other times of the day Blood 05/12/2024 5:38 PM EDT 05/12/2024 5:38 PM EDT Treva Diaz MD POINT OF CARE TEST ORDERABLES Performing Organization Address [facility] Co de Phone Number [facility] [place] [address] * Vancomycin Level, Random (05/12/2024 2:10 PM EDT) Vancomycin, Random 22.3 mg/L [facility] Comment: This level is for determination of the patient's vancomycin wfsh-lhnkc-rjq-curve (AUC) value. Contact the inpatient pharmacy for interpretation. Blood 05/12/2024 2:10 PM EDT 05/12/2024 2:23 PM EDT Treva Diaz MD CHEMISTRY ORDERABL ES Performing Organization Address [facility] Co de Phone Number [facility] [place] [address] * POCT Glucose (05/12/2024 1:42 PM EDT) Glucose, POC 168 65 - 199 mg/dL [facility] Comment: Supplemental ranges: <140 mg/dL before meals <180 mg/dL all other times of the day Blood 05/12/2024 1:42 PM EDT 05/12/2024 1:42 PM EDT Treva Diaz MD POINT OF CARE TEST ORDERABLES Performing Organization Address City/[facility]/ZIP Co de Phone Number [facility] [place] [address] * Duplex for DVT, Leg, Unilat (05/12/2024 10:19 AM EDT) VB Text Report Department: Vascular Surgery Lab Patient: [id number] (JOSSY SHANKS) CPT: 38803 Referring Physician: MARY DE LA FUENTE ?? [...] MD VASCULAR ORDERABLE S Performing Organization Address [facility] Co de Phone Number [facility] * POCT Glucose (05/12/2024 9:00 AM EDT) Glucose, POC 161 65 - 199 mg/dL [facility] Comment: Supplemental ranges: <140 mg/dL before meals <180 mg/dL all other times of the day Blood 05/12/2024 9:00 AM EDT 05/12/2024 9:00 AM EDT Treav Diaz MD POINT OF CARE TEST ORDERABLES Performing Organization Address City/[facility]/ZIP Co de Phone Number [facility] [place] [address] * (ABNORMAL) Sedimentation rate (05/12/2024 4:45 AM EDT) [facility] Sedimentation Rate Automated >119(H) 3 - [...] MD HEMATOLOGY ORDERABLE S Performing Organization Address [facility]/ZIP Co de Phone Number [facility] [place] [address] * (ABNORMAL) CRP, acute inflammation (05/12/2024 4:45 AM EDT) [facility] C-Reactive Protein 152.4(H) <=4.9 mg/L [facility] Blood Venous Draw / Unknown 05/12/2024 4:45 AM EDT 05/12/2024 5:12 AM EDT Narrative Resulting Agency Comment Spec In Lab Juan José Harrison MD CHEMISTRY ORDERABLES Performing Organization Address City/[facility]/ZIP Co de Phone Number [facility] [place] [address] * (ABNORMAL) Differential, Automated (05/12/2024 4:45 AM EDT) [facility] Neutrophil % 87.9 % [facility] Neutrophil Absolute 17.31(H) 1.70 - 6.10 x10(3)/mc L [facility] Lymph % 3.9 % [facility] Lymphocytes Abs 0.8(L) 0.9 - 3.2 x10(3)/mc L [facility] Monocyte % 7.4 % [facility] Monocyte Abs 1.4(H) 0.3 - 0.9 x10(3)/[facility] Eos % 0.0 % [facility] Eosinophils Abs 0.0 0.0 - 0.4 x10(3)/[facility] Basophil % 0.1 % [facility] Baso Absolute 0.0 0.0 - 0.1 x10(3)/[facility] Immature Gran % 0.70 % [facility] Comment: Immature granulocytes(IG's)percentage and absolute count will include metamyelocytes, myelocytes, and promyelocytes. Blood smears from CBCs yielding IG's will be scanned manually for concordance. If this scan disagrees with the automated IG or if promyelocytes are noted, a manual differential will be performed. Immature Gran Absolute 0.14(H) 0.00 - 0.04 x10(3)/[facility] Blood 05/12/2024 4:45 AM EDT 05/12/2024 5:06 AM EDT Narrative Resulting Agency Comment Spec In Lab Carlotta Davis MD HEMATOLOGY OR DERABLES Performing Organization Address City/State/[facility] Co de Phone Number [facility] [place] [address] * (ABNORMAL) Hemogram (05/12/2024 4:45 AM EDT) White Blood Cell 19.7(H) 4.0 - 9.5 x10(3)/ L [facility] Red Blood Cell 3.58(L) 4.58 - 5.54 x10(6)/[facility] Hemoglobin 10.9(L) 13.7 - 16.5 [...] [facility] NRBC% auto 0.0 % [facility] NRBC Absolute 0.000 0.000 - 0.000 x10(3)/mc L [facility] Blood 05/12/2024 4:45 AM EDT 05/12/2024 5:06 AM EDT Narrative Resulting Agency Comment Spec In Lab Carlotta Davis MD HEMATOLOGY OR DERABLES [facility] [place] [address] * Magnesium (05/12/2024 4:45 AM EDT) Magnesium 1.07 0.69 - 1.07 mmol/L [facility] Blood 05/12/2024 4:45 AM EDT 05/12/2024 5:06 AM EDT Narrative Resulting Agency Comment Spec In Lab Mary De La Fuente MD CHEMISTRY ORDERABL ES Performing Organization Address City/[facility]/ZIP Co de Phone Number [facility] [place] [address] * Phosphorus (05/12/2024 4:45 AM EDT) Phosphorus 2.7 2.5 - 4.5 mg/dL [facility] Blood 05/12/2024 4:45 AM EDT 05/12/2024 5:06 AM EDT Narrative Resulting Agency Comment Spec In Lab Mary De La Fuente MD CHEMISTRY ORDERABL ES [facility] [place] [address] * (ABNORMAL) Basic Metabolic Panel (non-fasting) (05/12/2024 [...] CHEMISTRY ORDERABL ES [facility] [place] [id number] * ANGY, legs, multiple levels (05/12/2024 3:22 AM EDT) VB Text Report Department: Vascular Surgery Lab Patient: [id number] (JOSSY SHANKS) CPT: [id number] Referring Physician: THO DICKSON ?? Phone: Indications: [...] OF CARE TEST ORDERABLES Performing Organization Address City/[facility] Co de Phone Number [facility] [place] [address] * Vancomycin Level, Random (05/11/2024 8:10 PM EDT) Vancomycin, Random 21.7 mg/L [facility] Comment: This level is for determination of the patient's vancomycin jdce-qufng-nem-curve (AUC) value. Contact the inpatient pharmacy for interpretation. Blood 05/11/2024 8:10 PM EDT 05/11/2024 8:32 PM EDT Treva Diaz MD CHEMISTRY ORDERABL ES Performing Organization Address [facility] Co de Phone Number [facility] [place] [address] * POCT Glucose (05/11/2024 4:34 PM EDT) Glucose, POC 197 65 - 199 mg/dL [facility] Comment: Supplemental ranges: <140 mg/dL before meals <180 mg/dL all other times of the day Blood 05/11/2024 4:34 PM EDT 05/11/2024 4:34 PM EDT Treva Diaz MD POINT OF CARE TEST ORDERABLES Performing Organization Address [facility] Co de Phone Number [facility] [place] [address] * (ABNORMAL) POCT Glucose (05/11/2024 11:47 AM EDT) Glucose, POC 255(H) 65 - 199 mg/dL [facility] Comment: Supplemental ranges: <140 mg/dL before meals <180 mg/dL all other times of the day Blood 05/11/2024 11:4 7 AM EDT 05/11/2024 11:47 AM EDT Treva Diaz MD POINT OF CARE TEST ORDERABLES Performing Organization Address City/[facility]/ZIP Co de Phone Number [facility] [place] [address] * (ABNORMAL) POCT Glucose (05/11/2024 6:57 AM EDT) Glucose, POC 200(H) 65 - 199 mg/dL [facility] Comment: Supplemental ranges: <140 mg/dL before meals <180 mg/dL all other times of the day Blood 05/11/2024 6:57 AM EDT 05/11/2024 6:57 AM EDT Treva Diaz MD POINT OF CARE TEST ORDERABLES Performing Organization Address City/[facility]/ZIP Co de Phone Number [facility] [place] [address] * (ABNORMAL) Differential, Automated (05/11/2024 2:00 AM EDT) Neutrophil % 85.8 % [facility] Neutrophil Absolute 22.16(H) 1.70 - 6.10 x10(3)/mc L [facility] Lymph % 1.5 % [facility] Lymphocytes Abs 0.4(L) 0.9 - 3.2 x10(3)/mc L [facility] Monocyte % 4.9 % [facility] Monocyte Abs 1.3(H) 0.3 - 0.9 x10(3)/mc L [facility] Eos % 0.0 % [facility] Eosinophils Abs 0.0 0.0 - 0.4 x10(3)/mc L [facility] Basophil % 0.1 % [facility] Baso Absolute 0.0 0.0 - 0.1 x10(3)/[facility] Immature Gran % 7.70 % [facility] Comment: Immature granulocytes(IG's)percentage and absolute count will include metamyelocytes, myelocytes, and promyelocytes. Blood smears from CBCs yielding IG's will be scanned manually for concordance. If this scan disagrees with the automated IG or if promyelocytes are noted, a manual differential will be performed. Immature Gran Absolute 1.98(H) 0.00 - 0.04 x10(3)/[facility] Blood 05/11/2024 2:00 AM EDT 05/11/2024 2:07 AM EDT Narrative Resulting Agency Comment Spec In Lab Carlotta Davis MD HEMATOLOGY OR DERABLES Performing Organization Address City/State/[facility] Co de Phone Number [facility] [place] [address] * (ABNORMAL) Hemogram (05/11/2024 2:00 AM EDT) White Blood Cell 25.8(H) 4.0 - 9.5 x10(3)/[facility] Red Blood Cell 3.64(L) 4.58 - 5.54 x10(6)/ L [facility] Platelet 141(L) 145 - 357 x10(3)/[facility] RDW Standard Deviation 51.2(H) 36.0 - 45.0 fL [facility] RDW coefficient of variation 15.6(H) 11.4 - 13.8 % [facility] Mean Platelet Volume 12.9 7.6 - 12.9 fL [facility] NRBC% auto 0.0 % [facility] NRBC Absolute 0.000 0.000 - 0.000 x10(3)/mc L [facility] Blood 05/11/2024 2:00 AM EDT 05/11/2024 2:07 AM EDT Narrative Resulting Agency Comment Spec In Lab Carlotta Davis MD HEMATOLOGY OR DERABLES Performing Organization Address [facility]/ZIP Co de Phone Number [facility] [place] [address] * Magnesium (05/11/2024 2:00 AM EDT) Magnesium 1.01 0.69 - 1.07 mmol/L [facility] Blood 05/11/2024 2:00 AM EDT 05/11/2024 2:07 AM EDT Narrative Resulting Agency Comment Spec In Lab Mary De La Fuente MD CHEMISTRY ORDERABL ES Performing Organization Address [facility] Co de Phone Number [facility] [place] [address] * Phosphorus (05/11/2024 2:00 AM EDT) Phosphorus 4.0 2.5 - 4.5 mg/dL [facility] Blood 05/11/2024 2:00 AM EDT 05/11/2024 2:07 AM EDT Narrative Resulting Agency Comment Spec In Lab Mary De La Fuente MD CHEMISTRY ORDERABL ES Performing Organization Address City/[facility]/ZIP Co de Phone Number [facility] [place] [address] * (ABNORMAL) Basic Metabolic Panel (non-fasting) (05/11/2024 [...] MD CHEMISTRY ORDERABL ES Performing Organization Address [facility] Co de Phone Number [facility] [place] [address] * Vancomycin Level, Random (05/11/2024 2:00 AM EDT) Vancomycin, Random 21.4 mg/L [facility] Comment: This level is for determination of the patient's vancomycin fbsk-rnjqm-dsh-curve (AUC) value. Contact the inpatient pharmacy for interpretation. Blood 05/11/2024 2:00 AM EDT 05/11/2024 2:07 AM EDT Mary De La Fuente MD CHEMISTRY ORDERABL ES Performing Organization Address [facility] de Phone Number [facility] [place] [address] * (ABNORMAL) POCT Glucose (05/10/2024 11:40 PM EDT) Glucose, POC 230(H) 65 - 199 mg/dL [facility] Comment: Supplemental ranges: <140 mg/dL before meals <180 mg/dL all other times of the day Blood 05/10/2024 11:4 0 PM EDT 05/10/2024 11:40 PM EDT Treva Diaz MD POINT OF CARE TEST ORDERABLES Performing Organization Address [facility] Co de Phone Number [facility] [place] [address] * POCT Glucose (05/10/2024 4:09 PM EDT) Glucose, POC 189 65 - 199 mg/dL [facility] Comment: Supplemental ranges: <140 mg/dL before meals <180 mg/dL all other times of the day Blood 05/10/2024 4:09 PM EDT 05/10/2024 4:09 PM EDT Treva Diaz MD POINT OF CARE TEST ORDERABLES Performing Organization Address City/[facility]/ZIP Co de Phone Number [facility] [place] [address] * POCT Glucose (05/10/2024 12:11 PM EDT) Glucose, POC 185 65 - 199 mg/dL [facility] Comment: Supplemental ranges: <140 mg/dL before meals <180 mg/dL all other times of the day Blood 05/10/2024 12:1 1 PM EDT 05/10/2024 12:11 PM EDT Mary De La Fuente MD POINT OF CARE TEST ORDERABLES Performing Organization Address [facility] Co de Phone Number [facility] [place] [address] * Vancomycin Level, Random (05/10/2024 12:00 PM EDT) Vancomycin, Random 15.5 mg/L [facility] Comment: This level is for determination of the patient's vancomycin mzkg-kajjv-xfr-curve (AUC) value. Contact the inpatient pharmacy for interpretation. Blood 05/10/2024 12:0 0 PM EDT 05/10/2024 12:21 PM EDT Tho Dickson MD CHEMISTRY ORDERABLES Performing Organization Address [facility] Co de Phone Number [facility] [place] [address] * POCT Glucose (05/10/2024 8:09 AM EDT) Glucose, POC 195 65 - 199 mg/dL [facility] Comment: Supplemental ranges: <140 mg/dL before meals <180 mg/dL all other times of the day Blood 05/10/2024 8:09 AM EDT 05/10/2024 8:09 AM EDT Mary De La Fuente MD POINT OF CARE TEST ORDERABLES [facility] [place] [address] * CK (05/10/2024 6:55 AM EDT) Creatine Kinase 58 0 - 200 unit/L [facility] Blood Venous Draw / Unknown 05/10/2024 6:55 AM EDT 05/10/2024 7:41 AM EDT Narrative Resulting Agency Comment Spec In Lab Emmanuel Corey DO CHEMISTRY ORDERABLES Performing Organization Address [facility] Co de Phone Number [facility] [place] [address] * (ABNORMAL) Phosphorus (05/10/2024 6:55 AM EDT) [facility] Phosphorus 5.1(H) 2.5 - 4.5 mg/dL [facility] Blood 05/10/2024 6:55 AM EDT 05/10/2024 6:59 AM EDT Narrative Resulting Agency Comment Spec In Lab Tho Dickson MD CHEMISTRY ORDERABLES Performing Organization Address [facility] Co de Phone Number [facility] [place] [address] * (ABNORMAL) Basic Metabolic Panel (non-fasting) (05/10/2024 6:55 AM EDT) Pathologist [facility] Glucose 193 65 - 199 mg/dL [facility] [...] Dickson MD CHEMISTRY ORDERABLES Performing Organization Address City/[facility]/ZIP Co de Phone Number [facility] [place] [address] * Lactate, whole blood, send to lab ([facility]) (05/10/2024 6:55 AM EDT) Lactate WB 1.7 0.5 - 2.2 mmol/L [facility] Blood 05/10/2024 6:55 AM EDT 05/10/2024 7:00 AM EDT Narrative Resulting Agency Comment Spec In Lab Tho Dickson MD CHEMISTRY ORDERABLES [facility] [place] [address] * MRI Foot wwo Contrast Right (05/10/2024 5:51 AM EDT) WORKSTATION ID [id number] RAD Anatomical Region Laterality Modality Foot Right [...] who have questions please contact the health health care legal assistant that requested your imaging first. ? Narrative [...] patients who have questions please contactthe health health care legal assistant that requested your imaging first. Tho Dickson MD IMG MRI ORDERABLES * Creatinine, urine, random (05/10/2024 4:15 AM EDT) Creatinine, Urine 106 mg/dL [facility] Urine 05/10/2024 4:15 AM EDT 05/10/2024 4:23 AM EDT Narrative Resulting Agency Comment Spec In Lab Tho Dickson MD URINE ORDERABLES Performing Organization Address [facility] Co de Phone Number [facility] [place] [address] * Sodium, urine, random (05/10/2024 4:15 AM EDT) Sodium, Urine <20 mmol/L [facility] Urine 05/10/2024 4:15 AM EDT 05/10/2024 4:23 AM EDT Narrative Resulting Agency Comment Spec In Lab Tho Dickson MD URINE ORDERABLES Performing Organization Address [facility]/ZIP Co de Phone Number [facility] [place] [address] * Urea nitrogen, urine, random (05/10/2024 4:15 AM EDT) Urea Nitrogen, Urine 580 mg/dL [facility] Urine 05/10/2024 4:15 AM EDT 05/10/2024 4:23 AM EDT Narrative Resulting Agency Comment Spec In Lab Tho Dickson MD URINE ORDERABLES Performing Organization Address [facility] de Phone Number [facility] [place] [address] * (ABNORMAL) Skin/Superficial Wound Culture Toe (05/10/2024 [...] - GENER AL ORDERABLES Performing Organization Address [facility] Co de Phone Number [facility] [place] [address] * (ABNORMAL) Urinalysis without microscopic (05/10/2024 2:42 [...] HOSPITAL LABOR[facility]ORY Leukocytes, Urine Dipstick Small(A) Negative mcL [facility] Appearance, Urine Dipstick Cloudy(A) Clear [facility] Specific [place] Urine Automated 1.017 1.005 - 1.030 [facility] Color, Urine Dipstick [place](A) Yellow [facility] Urine 05/10/2024 2:42 AM EDT 05/10/2024 2:57 AM EDT Narrative Resulting Agency Comment Spec In Lab Tho Dickson MD URINE ORDERABLES [facility] [place] [address] * XR Chest One View (05/10/2024 2:37 AM EDT) Pathologist [employer] WORKSTATION ID [id number] RAD Anatomical Region Laterality Modality Chest N/A Digital Radiogra phy Impressions 05/10/2024 3:27 AM EDT Bibasilar atelectasis. Thank you for letting us participate in the care of this patient. ??If you are a health care provider and have any questions regarding this report, please contact the number below. ??For patients who have questions please contact the health health care legal assistant that requested your imaging first. ? Narrative [...] patients who have questions please contactthe health health care legal assistant that requested your imaging first. Tho Dickson MD IMG DX ORDERABLES * Blood culture (05/10/2024 2:32 AM EDT) Blood Culture No growth at 5 days. [facility] Blood STRUCTURE OF RIGHT HAND / Unknown 05/10/2024 2:32 AM EDT 05/10/2024 4:17 AM EDT Narrative Resulting Agency Comment Spec In Lab Tho Dickson MD MICROBIOLOGY - BLOOD ORDERABLES Performing Organization Address [facility] Co de Phone Number [facility] [place] [address] * (ABNORMAL) POCT Glucose (05/10/2024 2:30 AM EDT) [facility] Glucose, POC 201(H) 65 - 199 mg/dL [facility] Comment: Supplemental ranges: <140 mg/dL before meals <180 mg/dL all other times of the day Blood 05/10/2024 2:30 AM EDT 05/10/2024 2:30 AM EDT Tho Dickson MD POINT OF CARE TEST O RDERABLES Performing Organization Address [facility] Co de Phone Number [facility] [place] [address] * Vancomycin Level, Random (05/10/2024 2:20 AM EDT) [facility] Vancomycin, Random 26.9 mg/L M [facility] Comment: This level is for determination of the patient's vancomycin uaah-zhfiw-nvh-curve (AUC) value. Contact the inpatient pharmacy for interpretation. Blood Venous Draw / Unknown 05/10/2024 2:20 AM EDT 05/10/2024 2:38 AM EDT Tho Dickson MD CHEMISTRY ORDERABLES Performing Organization Address [facility]/ZIP Co de Phone Number [facility] [place] [address] * Scan, Peripheral Blood (05/10/2024 2:20 AM EDT) [facility] Plat estimate Normal [facility] RBC Morphology Abnormal [facility] Ovalocytes 1-5 /HPF [facility] Edgar Cells 1-5 /HPF [facility] Plat, Giant Less than 1 /HPF [facility] Blood 05/10/2024 2:20 AM EDT 05/10/2024 2:36 AM EDT Narrative Resulting Agency Comment Spec In Lab Anita Camacho MD HEMATOLOGY ORDERABLE S Performing Organization Address City/[facility]/ZIP Co de Phone Number [facility] [place] [address] * Type and Screen Validity (05/10/2024 2:20 AM EDT) T&S only valid at [facility] Comment:This Type and Screen result is only valid at the [facility] Blood 05/10/2024 2:20 AM EDT 05/10/2024 2:49 AM EDT Narrative Resulting Agency Comment Spec In Lab Anita Camacho MD BLOOD BANK LAB ORDER ANGELIQUE Performing Organization Address [facility]/ZIP Co de Phone Number [facility] [place] [address] * ABORH Recheck Status (05/10/2024 2:20 AM EDT) [facility] Recheck Order Order Placed [facility] ABORH Type Recheck Completed [facility] Blood 05/10/2024 2:20 AM EDT 05/10/2024 2:49 AM EDT Narrative Resulting Agency Comment Spec In Lab Anita Camacho MD BLOOD BANK LAB ORDER ANGELIQUE Performing Organization Address City/[facility]/ZIP Co de Phone Number [facility] [place] [address] * (ABNORMAL) Differential, Automated (05/10/2024 2:20 AM EDT) Neutrophil % 89.2 % [facility] Neutrophil Absolute 25.39(H) 1.70 - 6.10 x10(3)/mc L [facility] Lymph % 1.2 % [facility] Lymphocytes Abs 0.4(L) 0.9 - 3.2 x10(3)/mc L [facility] Monocyte % 2.9 % [facility] Monocyte Abs 0.8 0.3 - 0.9 x10(3)/mc L [facility] Eos % 0.0 % [facility] Eosinophils Abs 0.0 0.0 - 0.4 x10(3)/mc L [facility] Basophil % 0.2 % [facility] Baso Absolute 0.1 0.0 - 0.1 x10(3)/ L [facility] Immature Gran % 6.50 % [facility] Comment: Immature granulocytes(IG's)percentage and absolute count will include metamyelocytes, myelocytes, and promyelocytes. Blood smears from CBCs yielding IG's will be scanned manually for concordance. If this scan disagrees with the automated IG or if promyelocytes are noted, a manual differential will be performed. Immature Gran Absolute 1.85(H) 0.00 - 0.04 x10(3)/mc L [facility] Blood 05/10/2024 2:20 AM EDT 05/10/2024 2:36 AM EDT Narrative Resulting Agency Comment Spec In Lab Anita Camacho MD HEMATOLOGY ORDERABLE S [facility] [place] [address] * (ABNORMAL) Hemogram (05/10/2024 2:20 AM EDT) White Blood Cell 28.5(H) 4.0 - 9.5 x10(3)/mc L [facility] Red Blood Cell 3.83(L) 4.58 - 5.54 x10(6)/mc L [facility] Hemoglobin 11.4(L) 13.7 - 16.5 g/dL [...] Mean Platelet Volume 12.8 7.6 - 12.9 [facility] NRBC% auto 0.0 % [facility] NRBC Absolute 0.000 0.000 - 0.000 x10(3)/mc L [facility] Blood 05/10/2024 2:20 AM EDT 05/10/2024 2:36 AM EDT Narrative Resulting Agency Comment Spec In Lab Anita Camacho MD HEMATOLOGY ORDERABLE S [facility] [place] [address] * (ABNORMAL) Hemoglobin A1c (05/10/2024 2:20 AM [...] Mellitus, Diabetes Care 2013; 36: Suppl. 1, E36-86 Estimated Average Glucose See note mg/dL [facility] Comment: Estimated Average Glucose not appropriate for patients over 70 years of age. Blood 05/10/2024 2:20 AM EDT 05/10/2024 2:36 AM EDT Narrative Resulting Agency Comment Spec In Lab Tho Dickson MD CHEMISTRY ORDERABLES Performing Organization Address City/[facility] [place] [address] * Hepatic Function Panel (05/10/2024 2:20 AM [...] Dickson MD CHEMISTRY ORDERABLES Performing Organization Address [facility] Co de Phone Number [facility] [place] [address] * (ABNORMAL) Phosphorus (05/10/2024 2:20 AM EDT) Phosphorus 4.6(H) 2.5 - 4.5 mg/dL [facility] Blood 05/10/2024 2:20 AM EDT 05/10/2024 2:36 AM EDT Narrative Resulting Agency Comment Spec In Lab Tho Dickson MD CHEMISTRY ORDERABLES Performing Organization Address City/[facility]/ZIP Co de Phone Number [facility] [place] [address] * Magnesium (05/10/2024 2:20 AM EDT) Magnesium 0.85 0.69 - 1.07 mmol/L [facility] Blood 05/10/2024 2:20 AM EDT 05/10/2024 2:36 AM EDT Narrative Resulting Agency Comment Spec In Lab Tho Dickson MD CHEMISTRY ORDERABLES [facility] [place] [address] * (ABNORMAL) Basic Metabolic Panel (non-fasting) (05/10/2024 2:20 AM EDT) Glucose 196 65 - 199 mg/dL [facility] [...] Dickson MD CHEMISTRY ORDERABLES Performing Organization Address [facility] Co de Phone Number [facility] [place] [address] * (ABNORMAL) Prothrombin Time (05/10/2024 2:20 AM [...] MD HEMATOLOGY ORDERABLE S Performing Organization Address [facility]/ZIP Co de Phone Number [facility] [place] [address] * Type and screen ([facility]/TARA) (05/10/2024 2:20 AM EDT) ABORH Type O POSITIVE [facility] Patient BB History Not Found [facility] Expires at 2359 on: 05-13-2024 [facility] Ab Screen Interp Negative [facility] Blood 05/10/2024 2:20 AM EDT 05/10/2024 2:20 AM EDT Narrative [facility] - 05/10/2024 2:20 AM EDT This Type and Screen result is only valid at the [facility] Resulting Agency Comment Spec In Lab Tho Dickson MD BLOOD BANK LAB ORDER ANGELIQUE [facility] [place] [address] * (ABNORMAL) Lactate, whole blood, send to lab ([facility]) (05/10/2024 2:20 AM EDT) Lactate WB 2.3(H) 0.5 - 2.2 mmol/L [facility] Blood 05/10/2024 2:20 AM EDT 05/10/2024 2:36 AM EDT Narrative Resulting Agency Comment Spec In Lab Tho Dickson MD CHEMISTRY ORDERABLES Performing Organization Address [facility] Co de Phone Number [facility] [place] [address] documented in this encounter Visit Diagnoses Not [...] EVERY 4 HOURS SCHEDULED, First dose on [facility] 05/15/24 at 0400, Until Discontinued, CORRECTION BOLUS [...] HOURS, First dose (after last modification) on [facility] 05/22/24 at 1230, Until Discontinued, Routine Given [...] (Given - Provider: Alyssa Villalobos RN) 131 ([facility] Hold - Provider: Admin Adt - Reason: Transfer to a Procedural area)175 ([facility] Unhold - Provider: Admin Adt)2109 (Given - [...] Provider: Trice Zhao RN - Reason: NPO)1318 ([facility] Hold - Provider: Admin Adt [...] hours., Routine 0000 (Not Given - Provider: Pertty Ramirez RN - Reason: Order parameters not [...] HOURS, First dose (after last modification) on [place] 05/18/24 at 1430, Until Discontinued, Routine 0258 [...] Until Sun05/23/24 at 1815, Pain, Routine 1318 ([facility] Hold - Provider: Admin Adt [...] documented as of this encounter Care Teams Account Processor Relationship 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
--- OUTSIDE RECORDS SUMMARY | 2024-06-03 20:40 | XMS_ITS | Encounter Summary ---
Author Organization Formerly [facility] Address [facility] [place] [address] Care Team Providers Care Eyeglass Inspector Name Role Phone None Primary Care Provider Unavailabl e Encounter Details Date Type Department Care Team (Latest Contact Info) Description 11/26/2017 12:39 PM EST - 11/26/2017 11:59 PM [facility] Hospital Encounter XRay at [address] [place] [address] Navjot Castillo MD [facility] [place] [address] Spinal stenosis of lumbar region, unspecified whether [...] 10:30 AM EDT Office [place] [address] Elkin Garcia MD [facility] [place] [address] documented as of this encounter Procedures Procedure [...] Moderately advanced L5-S1 degenerative disc disease. Navjot Castillo MD IMG DX ORDERABLES documented in this encounter Visit Diagnoses Diagnosis Spinal stenosis of lumbar region, unspecified whether neurogenic claudication present documented in this encounter Care Teams Eyeglass Inspector Relationship 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
--- OUTSIDE RECORDS SUMMARY | 2024-06-03 20:40 | XMS_ITS | Encounter Summary ---
[place] [address] Care Team Providers Care Hemp Fiber Taker Off Name Role Phone None Primary Care Provider Unavailabl e Reason for Visit * Reason Comments Low Back Pain Bilateral Hip Pain Bilateral Leg Pain Encounter Details Date Type Department Care Team (Late st Contact Info) Description 11/26/2017 2:20 PM EST Office [place] [address] Navjot Castillo MD [facility] [place] [address] Degenerative lumbar spinal stenosis Social History Tobacco [...] None Social history: The patient worked at [employer] until one year ago. He stopped working [...] SI joint. He can flex 70?? and [id number]??. Neurological exam: He walks with a normal [...] 10:30 AM EDT [place] [address] Elkin Garcia MD [facility] DR ORTH[place] [address] documented as of this encounter Visit Diagnoses Diagnosis Degenerative lumbar spinal stenosis Spinal stenosis, lumbar region, without neurogenic claudication documented in this encounter Care Teams Hemp Fiber Taker Off Relationship 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
--- OUTSIDE RECORDS SUMMARY | 2024-06-03 20:40 | XMS_ITS | Encounter Summary ---
Author Organization [facility] Address [facility] [place] [address] Care Team Providers Care Instrumental Music Teacher Name Role Phone None Primary Care Provider Unavailabl e Encounter Details Date Type Department Care Team (Late st Contact Info) Description 2024 9:20 PM EDT Ancillary Procedure [place] [phone] Tho Reyes MD [facility] [place] [address] Social History Tobacco Use Types Packs/Day Years Used Date Smoking Tobacco: Former Smokeless Tobacco: Never [facility] Inpatient Questions Answer Date Recorded Does Anyone [...] 10:30 AM EDT [place] [phone] Elkin Garcia MD [facility] [place] [address] documented as of this encounter Procedures Procedure [...] FILM LIBRARY ORD ERABLES Performing Organization Address City/State/[facility] Co de Phone Number [place], [place] documented in this encounter Visit Diagnoses Not on filedocumented in this encounter Care Teams Instrumental Music Teacher Relationship 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
--- OUTSIDE RECORDS SUMMARY | 2024-06-03 20:40 | XMS_ITS | Encounter Summary ---
Author Organization [facility] [place] [address] Care Team Providers Care Wheat Washer Name Role Phone Cruzito Hager MD Primary Care Provider + Encounter Details Date Type Department Care Team (Latest Contact Info) Description 01/08/2017 - 01/08/2017 11:59 PM EDT Hospital Encounter [place] [address] Navjot Castillo MD [facility] [place] [address] Discharge Disposition: Home Social History Tobacco Use [...] 10:30 AM EDT Office [place] [address] Elkin Garcia MD [facility] [place] [address] documented as of this encounter Procedures Procedure Name Priority Date/Time Associated Diagnosis Comments FILM LIBRARY STORAGE ONLY MR SPINE Routine 01/08/2017 12:00 AM EDT documented in this encounter Results * Film Library- Storage Only MR Spine (01/08/2017 12:00 AM EDT) Narrative [facility] - 09/26/2017 1:39 PM EST This exam is for storage only and is auto-finalizing. Navjot Castillo MD IMG FILM LIBRARY ORD ERABLES [place], [place] documented in this encounter Visit Diagnoses Not on filedocumented in this encounter Care Teams Wheat Washer Relationship Specialty Start Date End Date Cruzito Hager MD [address] [facility] [place] [address] PCP - General 09/06/10 07/24/17 documented as of this encounter
--- OUTSIDE RECORDS SUMMARY | 2024-06-03 20:40 | XMS_ITS | Encounter Summary ---
Author Organization [facility] [place] [address] Care Team Providers Care Gold Frame Assembler Name Role Phone Unknown Primary Care Provider Unavailabl e Reason for Referral * Consultation (Routine) - Closed Specialty Diagnoses / Procedures Referred By Contac t Referred To Contact Orthopaedics Diagnoses Degenerative lumbar spinal stenosis Darin Gonzáles MD [facility] [place] [address] Navjot Castillo MD [facility] [place] [address] Referral ID Status Reason Start Date Expiration Date V isits Requested Visits Authorized [id number] Closed Consult, Test & Treat 09/25/2017 09/25/2018 1 1 Reason for Visit * Reason Onset Date Comments Medication Refill 09/25/2017 Encounter Details Date Type Department Care Team (Late st Contact Info) Description 09/25/2017 Refill Pain Management at [place] [phone] Darin Gonzáels MD [facility] [place] [address] Degenerative lumbar spinal stenosis Social History Tobacco [...] 10:30 AM EDT Office [place] [address] Elkin Garcia MD [facility] DR [place] [address] Scheduled Referrals Name Type Priority Associated Diagnoses Orde r Schedule Referral to Spine Center Outpatient Referral Routine Degenerative lumbar spinal stenosis Ordered: 09/25/2017 documented as of this encounter Visit Diagnoses Diagnosis Degenerative lumbar spinal stenosis Spinal stenosis, lumbar region, without neurogenic claudication documented in this encounter Care Teams Gold Frame Assembler Relationship Specialty Start Date End Date Unknown None PCP - General 07/25/17 11/25/17 documented as of this encounter
[2024-06-03 20:43] LABS: Lactate 1.1 mmol/L (0.9-1.7)
[2024-06-03 20:45] LABS: Diff Comment RBC Morph Reviewed; Hypochromasia 2+
[2024-06-03 20:48] LABS: INR 1.5 (0.9-1.1); Prothrombin Time 14.3 sec (9.1-11.1)
[2024-06-03 20:52] LABS: ALT 20 U/L (16-63); AST 12 U/L (15-37); Albumin 1.9 g/dL (3.4-5.0); Alkaline Phosphatase 113 U/L (46-116); Anion Gap 9.1 mmol/L (3-11); BUN 65 mg/dL (7-18); Bilirubin, Total 0.18 mg/dL (0.2-1.0); CO2 24.9 mmol/L (21.0-32.0); Calcium 9.3 mg/dL (8.5-10.1); Chloride 102 mmol/L (98-107); Estimated GFR 15.34 (mL/min/1.73m2); Glucose 122 mg/dL (74-106); Magnesium 1.9 mg/dL (1.8-2.4); Potassium 4.6 mmol/L (3.5-5.1); Sodium 136 mmol/L (136-145); Total Protein 7.5 g/dL (6.4-8.2)
[2024-06-03 21:01] LABS: NT-proBNP 6403 pg/mL (<300); Troponin I < 50 ng/L (< or =60)
[2024-06-03] MEDS: Albuterol/Ipratropium 3 ML UPD VIAL UPD (21:18)
--- NOTE | 2024-06-03 21:42 | DI.RAD_ITS ---
Exam(s) XR CHEST 2V PA LATERAL EXAM: XR CHEST 2V PA LATERAL CLINICAL HISTORY: SOB TECHNIQUE: 2D digital imaging was performed. Two views. COMPARISON: CR XR PORTABLE CHEST AP from 05/09/2024 FINDINGS: Exam is limited by under penetration and semi erect positioning. HEART: Enlarged. Aorta: Not dilated. PULMONARY VASCULATURE: Prominent. MEDIASTINUM: Unremarkable. LUNGS: No focal area of consolidation. PLEURAL SPACE: Question of tiny pleural effusions. No pneumothorax. BONE:Unremarkable for age. SOFT TISSUES: Unremarkable. Right internal jugular central venous catheter present. IMPRESSION: Findings consistent with mild CHF. DATA REPOSITORY: RADIATION DOSE DELIVERED:
--- NOTE | 2024-06-03 21:42 | DI.CT_ITS ---
Exam(s) CT HEAD WO EXAM: CT HEAD WO CLINICAL HISTORY: fall, anticoagulated. TECHNIQUE: Imaging Protocol: Axial computed tomography images with coronal and sagittal reformatted images were created and reviewed COMPARISON: No exams were available for comparison FINDINGS: Ventricles and Extra axial spaces: Normal in size and morphology for the patient's age. Hemorrhage: None. Cerebral parenchyma: No evidence of acute infarct or mass. Mild atrophy and white matter changes co nsistent with the patient's age. Midline shift: None. Brainstem/Cerebellum: Normal. Bones:: No skull fracture. Nondisplaced nasal fracture indeterminate age. Visualized Paranasal sinuses:Clear. Mastoids: Clear. Soft Tissues: Soft tissue swelling over left orbit. ORBITS: Unremarkable. PITUITARY: Not enlarged. IMPRESSION: No acute intracranial process. Nasal fractures, age indeterminate. RADIATION DOSE DELIVERED: Total DLP DATA REPOSITORY: All CT scans at this facility are submitted to the National Radiology Data Registry (NRDR) Dose Index Registry (DIR) with the [employer] (ACR). RADIATION OPTIMIZATION: All CT scans at this facility use at least one of these dose optimization te chniques: automated exposure control; mA and/or kV adjustment per patient size (includes targeted exa ms where dose is matched to clinical indication); or iterative reconstruction.
[2024-06-03] MEDS: Lactated Ringers 500 ML IV (21:51)
--- NOTE | 2024-06-03 22:07 | NUR.NOTE ---
Nursing Note:This RN gave report and transfer of care to Chas Decker RN at this time
--- NOTE | 2024-06-03 22:13 | DI.VRAD_ITS ---
PROCEDURE INFORMATION: Exam: XR Chest Exam date and time: 06/03/2024 8:53 PM Age: 69 years old Clinical indication: Other: SOB TECHNIQUE: Imaging protocol: Radiologic exam of the chest. Views: 2 views. COMPARISON: CT CHEST/ABD/PEL WO 05/09/2024 7:36 PM FINDINGS: Tubes, catheters and devices: There is a right internal jugular central venous catheter present within tip of the catheter at the cavoatrial junction. Lungs: There is pulmonary venous congestion. There is diffuse interstitial edema. Underlying inflammatory or infectious process not excluded. Pleural spaces: There is a probable small left pleural effusion. No evidence of pneumothorax. Heart/Mediastinum: The heart is enlarged. There is prominence of the mediastinum. Bones/joints: The skeletal structures and soft tissues show no evidence of fracture or other acute processes. Soft tissues: The soft tissues of the extrathoracic region are unremarkable. IMPRESSION: 1. Probable congestive heart failure. Underlying inflammatory or infectious process not excluded. 2. There is a right internal jugular central venous catheter present within tip of the catheter at the cavoatrial junction. 3. There is a probable small left pleural effusion. Dictated and Authenticated by: Teofilo Torres MD. Ordering:CONSTANTINO Ch MD
--- NOTE | 2024-06-03 22:17 | DI.VRAD_ITS ---
PROCEDURE INFORMATION: Exam: CT Head Without Contrast Exam date and time: 06/03/2024 8:59 PM Age: 69 years old Clinical indication: Other: Fall, anticoagulated TECHNIQUE: Imaging protocol: Computed tomography of the head without contrast. COMPARISON: No relevant prior studies available. FINDINGS: Brain: There is mild diffuse heterogeneity of the white matter attenuation, consistent with chronic white matter microangiopathic ischemic changes. There is mild diffuse cerebral atrophy present. There is no evidence of intracranial hemorrhage. There is no evidence of acute intracranial injury or other pathologic process. There is no evidence of an acute ischemic event. Cerebral ventricles: The ventricular system demonstrates mild diffuse compensatory enlargement. Paranasal sinuses: Mucoperiosteal thickening consistent with chronic sinusitis. No air-fluid levels to suggest evidence of acute sinusitis. Mastoid air cells: The mastoid aircells are normal. Orbital cavities: The orbits are normal without evidence of fracture. There is no evidence of retro-bulbar hemorrhage. There is no evidence of globe or lens injury. Bones: There is a fracture of the nasal bones age-indeterminate likely acute. The bony cranium shows no evidence of injury or other acute pathologic processes. Soft tissues: There is soft tissue swelling of the left preseptal periorbital soft tissues. IMPRESSION: 1. No evidence of an acute intracranial abnormality. 2. There is mild age-related atrophy and chronic white matter ischemic changes, with compensatory ventricular dilation. 3. There is a fracture of the nasal bones age-indeterminate, likely acute. 4. There is soft tissue swelling of the left preseptal periorbital soft tissues. Dictated and Authenticated by: Teofilo Torres MD. Ordering:CONSTANTINO Ch MD
[2024-06-04 19:00] LABS: Hepatitis B Surface Ag Negative (Negative)
[2024-06-04 19:32] LABS: Hepatitis C Ab w Rflx HCV PCR Negative (Negative)
[2024-06-04 19:45] LABS: HIV-1/2 Ag & Ab Screen Negative (Negative)
--- NOTE | 2024-06-05 13:57 | NUR.NOTE ---
Access chart to reconcile EKG orders with EKGs in [facility]. Duplicate order cancelled. Nursing Note:
== END 2024-06-03 23:55 | disposition skilled nursing facility (03) ==
PROVIDERS: Emergency Medicine; Emergency Provider Physician Assistant; PCP Physician Assistant
DX: D64.9 Anemia, unspecified (principal); I13.0 Hypertensive heart and chronic kidney disease with heart failure and stage 1 through stage 4 chronic kidney disease, or unspecified chronic kidney disease; E11.22 Type 2 diabetes mellitus with diabetic chronic kidney disease; N18.9 Chronic kidney disease, unspecified; I50.33 Acute on chronic diastolic (congestive) heart failure; R79.89 Other specified abnormal findings of blood chemistry; R06.02 Shortness of breath; I48.91 Unspecified atrial fibrillation; E66.01 Morbid (severe) obesity due to excess calories; S01.111A Laceration without foreign body of right eyelid and periocular area, initial encounter; V86.41XA Person injured while boarding or alighting from ambulance or fire engine, initial encounter; Z79.4 Long term (current) use of insulin; Z79.01 Long term (current) use of anticoagulants
CPT/HCPCS: 12011; 80053; 86803; 86850; 86900; 86901; 86920; 87340; 87389; 93005; 94640; 99285; 70450; 71046; 83605; 83735; 83880; 84484; 85025; 85610; 85730; 93010; 99284; J7620

== ENCOUNTER 2024-06-06 15:55 | Inpatient (IN) | payer MEDICARE, SELFPAY ==
[2024-06-06] VITALS (75 sets, daily range): BP systolic 88–162; BP diastolic 39–81; PULSE 70–96; RESP 18–42; TEMP 36.7–36.9; O2SAT 87–100
--- NOTE | 2024-06-06 15:45 | RT.EKG_ITS ---
APPROVED REPORT Exam: Resting ECG Reason for Exam: Dyspnea Patient Location: E HR:84 bpm ECG Measurements Heart Rate 84 AXIS SD [id number] P [id number] QRSd 117 QRS -41 QT 381 T 66 QTc 452 Conclusion Atrial fibrillation Rate 84 No STEMI
[2024-06-06 16:22] LABS: Abs Immature Grans 0.02 10^3/uL (0.0-0.06); Absolute Basophil Count 0.04 10^3/uL (0.0-0.2); Absolute Eosinophil Count 0.45 10^3/uL (0.0-0.7); Absolute Lymphocyte Count 0.92 10^3/uL (1.2-3.4); Absolute Monocyte Count 1.28 10^3/uL (0.1-0.8); Absolute Neutrophil Count 5.28 10^3/uL (1.2-6.7); Basophils % 0.5 %; Eosinophils % 5.6 %; Immature Grans % 0.3 %; Lymphocytes % 11.5 %; MCH 28.9 pg (27.0-33.0); MCHC 31.3 % (32.0-36.0); MCV 92 fL (80-95); MPV 10.2 fL (8.0-11.0); Neutrophils % 66.1 %; Platelet Count 266 10^3/uL (130-400); RBC 2.18 10^6/uL (4.36-5.78); RDW 15.9 % (11.8-14.1); RDW-SD 54.1 fL; WBC 7.99 10^3/uL (4.4-10.8)
--- OUTSIDE RECORDS SUMMARY | 2024-06-06 16:29 | XMS_ITS | Encounter Summary ---
Author Organization [facility] Address [facility] [place] [address] Care Team Providers Care Manager Nicu Name Role Phone None Primary Care Provider Unavailabl e Encounter Details Date Type Department Care Team (Late st Contact Info) Description 05/26/2024 Orders [place] [address] Maryann Dowell MD [facility] INFECTIOUS [place] [address] Osteomyelitis of second toe of right foot; Coagulase-negative staphylococcal infection Social History Tobacco Use Types Packs/Day Years Used Date Smoking Tobacco: Former Cigarettes 14 0.6 S tarted: 2023 Smokeless Tobacco: Never Alcohol Use Standard Drinks/Week Comments Yes 0 (1 standard drink = 0.6 oz pur e alcohol) 3-4 PER [facility] Inpatient Questions Answer Date Recorded Does [...] 10:30 AM EDT [place] [address] Elkin Garcia MD [facility] DR ORTHOPAEDIC [place] [address] documented as of this encounter Visit Diagnoses Diagnosis Osteomyelitis of second toe of right foot Coagulase-negative staphylococcal infection Other staphylococcus infection in conditions classified elsewhere and of unspecified site documented in this encounter Care Teams Manager Nicu Relationship 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
--- OUTSIDE RECORDS SUMMARY | 2024-06-06 16:29 | XMS_ITS | Clinical Summary ---
Author Organization [facility] Address [facility] [place] [address] Care Team Providers Care Stock Clipper Name Role Phone None Primary Care Provider [...] Units subcutaneously nightly. 3 mL 05/23/2024 Active ipratropium-albute roL (Duoneb) 0.5 mg-3 mg(2.5 mg base)/3 mL [...] 30 days. 60 tablet 05/23/2024 4 Active Active Problems Problem Noted Date Diagnosed Date Septic shock 2024 Degenerative lumbar spinal stenosis 09/25/2017 Encounters Date Type Department Care Team Description 05/30/2024 Telephone Infectious Disease at [place] [phone] Lu Mcfarland, SACK KEEPER 05/26/2024 Orders Only Infectious Disease at [place] [phone] Maryann Dowell MD Osteomyelitis of second toe of right foot; Coagulase-negative staphylococcal infection 05/26/2024 Telephone [place] [phone] Marina Mason RN 05/22/2024 4:33 PM EDT Anesthesia Event Gastroenterology at [place] [phone] Soledad Doyle MD Pouliot, Ryan C, MD 05/22/2024 1:00 PM EDT - 05/22/2024 1:30 PM EDT [place] [phone] Jonn Mena MD EGD, UPPER GI ENDOSCOPY (WRVU 2.09) 05/21/2024 Travel 05/14/2024 10:37 AM EDT Anesthesia Event Main Operating Room [place] [phone] Gertrudis Kimball MD Godbout, Jennifer M, MD 05/14/2024 10:00 AM EDT - 05/14/2024 11:24 AM EDT [place] [address] Elkin Garcia MD AMPUTATION, TRANSMETATARSAL TOE, ONE TOE (WRVU 6.64) 05/10/2024 2:12 AM EDT - 05/23/2024 4:14 PM EDT Hospital Encounter Surgical Unit Level 4 Wing D at [place] [phone] Arely Dickson MD Saunders, MD Joe Gaona Gurbakhshish, MD Swenson, Beverly Goodson MD Septic shock; Altered tissue perfusion; Osteomyelitis of second toe of right foot; Stage 4 chronic kidney disease Discharge Disposition: Rehab Center in a Facility 2024 9:25 PM EDT Ancillary Procedure [place] [phone] Arely Dickson MD 2024 9:20 PM EDT Ancillary Procedure Radiology Library at [place] [phone] Arely Dickson MD from Last 3 Months [...] 10:30 AM EDT Office [place] [phone] Elkin Garcia MD [facility] [place] [address] Health Maintenance Due Date Last Done Comments [...] history exists Medical Devices Implanted Type Area Elastic Attacher Overlock Device Identifier Shelf Expiration Date Model / Serial / Lot Clip [id number] Endoscopic Ligation Resolution 360 Each ([id number]) - [id number] Implanted:Qty: 1 on 05/22/2024 by Jonn Mena MD at [facility] IMPLANTS Duodenum [employer] 2122 / / Procedures Procedure Name [...] EDT Upper Gi Endoscopy, W/Dir Submuc Inj (76757) 05/22/2024 4:39 PM EDT ? melena Upper Gi Endoscopy, Ctrl Bleed ([id number]) 05/22/2024 4:39 PM EDT ? melena Upper GI Endoscopy, Diagnostic ([id number]) 05/22/2024 4:39 PM EDT ? melena UPPER [...] 05/14/2024 11:32 AM EDT Amputation Metatarsal+Toe, Single ([id number]) 05/14/2024 10:37 AM EDT right second toe [...] AUTOMATED Routine 05/13/20 24 5:29 AM EDT HEMOGRAM Routine 05/13/2024 5:29 [...] 05/10/2024 2:20 AM EDT TYPE AND SCREEN (MC/CGP/TARA) STAT 05/10/2024 2:20 AM EDT VANCOMYCIN LEVEL, [...] of40 resultswithin the time period is included. [facility] Glucometer, POC 137 65 - 199 mg/dL 05/23/2024 12:32 PM EDT [facility] Comment:Supplemental ranges: <140 mg/dL before meals <180 mg/dL all other times of the day. Blood CAPILLARY BLOOD / Unknown 05/23/2024 12:32 PM EDT 05/23/2024 12:32 PM EDT Beverly Spears MD POINT OF CARE TEST ORDERABLES [facility] [place] [address] * (ABNORMAL) CBC (with Diff) (05/23/2024 9:46 AM EDT) Only the most recent of8 resultswithin the time period is included. White Blood Cell 12.66(H) 4.00 - 9.50 x10(3)/mc L 05/23/2024 10:52 AM EDT [facility] Red Blood Cell 2.56(L) 4.58 - 5.54 x10(6)/mc L 05/23/2024 10:52 AM EDT [facility] Hemoglobin 7.7(L) 13.7 - 16.5 g/dL 05/23/2024 10:52 AM EDT [facility] Hematocrit 24.3(L) 40.5 - 48.5 % 05/23/2024 10:52 AM EDT [facility] Mean Cell Volume 94.9(H) 82.9 - 93.1 fL 05/23/2024 10:52 AM T [facility] Mean Cell Hemoglobin 30.1 27.5 - 32.1 pg 05/23/2024 10:52 AM EDT [facility] Mean Cell Hemoglobin Concentration 31.7(L) 32.0 - 35.7 g/dL 05/23/2024 10:52 AM EDT [facility] Platelet 370(H) 145 - 357 x10(3)/mc L 05/23/2024 10:52 AM EDT [facility] Mean Platelet Volume 11.6 [...] - 0.10 x10(3)/mc L 05/23/2024 10:52 AM [facility] Immature Gran % 0.6 % 10:52 AM [facility] Immature Gran Absolute 0.07(H) 0.00 - 0.04 x10(3)/mc L 05/23/2024 10:52 AM EDT [facility] Blood VENOUS BLOOD SPECIMEN / Unknown IP Care Team Draw / Unknown 05/23/2024 9:46 AM EDT 05/23/2024 10:01 AM EDT Beverly Spears MD HEMATOLOGY ORDERABL ES [facility] [place] [address] * (ABNORMAL) Basic Metabolic Panel (05/23/2024 9:46 AM EDT) Only the most recent of17 resultswithin the time period is included. Glucose 142 65 - 199 mg/dL 05/23/2024 11:27 AM [facility] Comment:Glucose Concentratio n >=200 mg/dL plus symptoms is consistent with Diabetes Mellitus. Blood Urea Nitrogen 83(H) 10 - 20 mg/dL 05/23/2024 11:27 AM EDT [facility] Creatinine 2.64(H) 0.80 - [...] 22 - 31 mMol/L 05/23[facility]2024 [facility] Anion Gap 9 5 - 15 mMol/L 05/23/2024 11:27 AM [facility] Calcium 9.3 8.5 - 10.5 mg/dL 05/23/2024 11:27 AM [facility] Est Glomerular Filtration Rate - Male 25 mL/min/1. 73 m?? 05/23/2024 11:27 AM EDT [facility] Comment: This patient's estimated [...] MD CHEMISTRY ORDERABLE S Performing Organization Address City/[facility]/ZIP Co de Phone Number [facility] [place] [address] * Prepare RBC (05/23/2024 3:49 AM EDT) Status Information Transfused [facility] Product Identification RBC [facility] Unit Number [id number] [facility] Product Code [id number] [facility] Unit Blood Type [facility] Specimen Expiration Date [id number] [facility] [address] [facility] Issue Date / Time [id number] [facility] Blood 05/22/2024 12: 42 PM EDT Beverly Spears MD BLOOD BANK PRODUCT ORDERABLES Performing Organization Address City/[facility]/ZIP Co de Phone Number [facility] [place] [address] * (ABNORMAL) Scan, Peripheral Blood (05/23/2024 1:19 AM EDT) RBC Morphology Abnormal 05/23/2024 3:44 AM EDT [facility] Platelet Estimate Increased(A) Normal 05/23/2024 3:44 AM EDT [facility] Ovalocytes 1-5 /HPF 05/23/2024 3:44 AM EDT [facility] [place] cells 1-5 /HPF 05/23/2024 3:44 AM EDT [facility] Blood VENOUS BLOOD SPECIMEN / Unknown IP Care Team Draw / Unknown 05/23/2024 1:19 AM EDT 05/23/2024 2:05 AM EDT Julius Cook MD HEMATOLOGY ORDERAB LES Performing Organization Address City/[facility]/ZIP Co de Phone Number [facility] [place] [address] * (ABNORMAL) Phosphorus (05/23/2024 1:19 AM EDT) Only the most recent of15 resultswithin the time period is included. Phosphorus 5.8(H) 2.5 - 4.5 mg/dL 05/23/2024 2:40 AM EDT [facility] Blood VENOUS BLOOD SPECIMEN / Unknown IP Care Team Draw / Unknown 05/23/2024 1:19 AM EDT 05/23/2024 2:05 AM EDT Julius Cook MD CHEMISTRY ORDERABL ES Performing Organization Address City/[facility]/ZIP Co de Phone Number [facility] [place] [address] * Magnesium (05/23/2024 1:19 AM EDT) Only the most recent of14 resultswithin the time period is included. Magnesium 0.86 0.69 - 1.07 mMol/L 05/23/2024 2:40 AM EDT [facility] Blood VENOUS BLOOD SPECIMEN / Unknown IP Care Team Draw / Unknown 05/23/2024 1:19 AM EDT 05/23/2024 2:05 AM EDT Julius Cook MD CHEMISTRY ORDERABL ES [facility] [place] [address] * Transfuse RBC (05/22/2024 2:45 PM EDT) Beverly Spears MD NURSING TREATMENT O RDERABLES - BLOOD ADMIN * UPPER GI ENDOSCOPY (05/22/2024 12:48 PM EDT) UPPER GI ENDOSCOPY [facility] Endoscopy ___ Procedure Date: 05/22/2024 12:48 PM ? Patient Name: Ave Kolb ? [facility]: [id number] ? Date of : 1955 ? Age: 69 ? Order #: [id number] ? Instrument Name: [id number]- [id number]- [id number] ? ___ Procedure: ? Upper GI endoscopy [...] Recheck Progress Complete 05/22/2024 1:01 PM EDT [facility] Blood VENOUS BLOOD SPECIMEN / Unknown IP Care Team Draw / Unknown 05/22/2024 11:18 AM EDT 05/22/2024 11:27 AM EDT Beverly Spears MD BLOOD BANK LAB [facility] [place] [address] * (ABNORMAL) Hemoglobin and Hematocrit, blood (05/22/2024 11:18 AM EDT) Hemoglobin 6.9(L) 13.7 - 16.5 g/dL 05/22/2024 12:02 PM EDT [facility] Hematocrit 21.4(L) 40.5 - 48.5 % 05/22/2024 12:02 PM EDT [facility] Blood VENOUS BLOOD SPECIMEN / Unknown IP Care Team Draw / Unknown 05/22/2024 11:18 AM EDT 05/22/2024 11:36 AM EDT Beverly Spears MD HEMATOLOGY ORDERABL ES Performing Organization Address City/[facility]/ZIP Co de Phone Number [facility] [place] [address] * Type and screen ([facility]/TARA) (05/22/2024 11:18 AM EDT) Only the most recent of2 resultswithin the time period is included. ABORH Type O POSITIVE 05/22/2024 12:31 PM EDT [facility] PATIENT HISTORY Found 05/22/2024 12:31 PM EDT [facility] Expires at [id number] on: 05-22-2024 05/22/2024 12:31 PM EDT [facility] ANTIBODY SCREEN AUTOMATED Negative 05/22/2024 12:31 PM EDT [facility] T&S only valid at [facility] 05/22/2024 12:31 PM EDT [facility] Blood VENOUS BLOOD SPECIMEN / Unknown IP Care Team Draw / Unknown 05/22/2024 11:18 AM EDT 05/22/2024 11:27 AM EDT Narrative [facility] - 05/22/2024 12:31 PM EDT This Type and Screen result is only valid at the [facility] Beverly Spears MD BLOOD BANK LAB ORDE RABLES Performing Organization Address City/[facility]/ZIP Co de Phone Number [facility] [place] [address] * (ABNORMAL) Hepatic Function Panel (05/22/2024 5:18 AM EDT) Only the most recent of2 resultswithin the time period is included. Albumin 2.6(L) 3.2 - 5.2 g/dL 05/22/2024 9:50 AM EDT [facility] Aspartate Aminotransferase 18 <=39 unit/L 05/22/2024 9:50 AM EDT [facility] Alanine Aminotransferase 42 0 - 55 unit/L 05/22/2024 9:50 AM EDT [facility] Alkaline Phosphatase 84 40 - 130 unit/L 05/22/2024 9:50 AM EDT [facility] Bilirubin, Total <0.2 <=1.3 mg/dL 05/22/2024 9:50 AM EDT [facility] Bilirubin, Direct <0.2 0.0 - 0.3 mg/dL 05/22/2024 9:50 AM EDT [facility] Protein, Total 6.0(L) 6.1 - 8.0 g/dL 05/22/2024 9:50 AM EDT [facility] Blood VENOUS BLOOD SPECIMEN / Unknown IP Care Team Draw / Unknown 05/22/2024 5:18 AM EDT 05/22/2024 5:45 AM EDT Beverly Spears MD CHEMISTRY ORDERABLE S [facility] [place] [address] * (ABNORMAL) Hemogram (05/21/2024 3:00 PM EDT) Only the most recent of10 resultswithin the time period is included. White Blood Cell 14.25(H) 4.00 - 9.50 x10(3)/mc L 05/21/2024 3:41 PM EDT [facility] Red Blood Cell 2.61(L) 4.58 - 5.54 x10(6)/mc L 05/21/2024 3:41 PM EDT [facility] Hemoglobin 7.8(L) 13.7 - 16.5 g/dL 05/21/2024 3:41 PM EDT [facility] Hematocrit 24.5(L) 40.5 - 48.5 % 05/21/2024 3:41 PM EDT [facility] Mean Cell Volume 93.9(H) 82.9 - 93.1 fL 05/21/2024 3:41 PM EDT [facility] Mean Cell Hemoglobin 29.9 27.5 - 32.1 pg 05/21/2024 3:41 PM EDT [facility] Mean Cell Hemoglobin Concentration 31.8(L) 32.0 - 35.7 g/dL 05/21/2024 3:41 PM EDT [facility] Platelet 456(H) 145 - 357 x10(3)/mc L 05/21/2024 3:41 PM EDT [facility] Mean Platelet Volume 11.1 7.6 - 12.9 fL 05/21/2024 3:41 PM EDT [facility] RDW Standard Deviation 55.2(H) 36.0 - 45.0 fL 05/21/2024 3:41 PM EDT [facility] RDW coefficient of variation 16.1(H) 11.4 - 13.8 % 05/21/2024 3:41 PM EDT [facility] NRBC% auto 0.0 % 05/21/2024 3:41 PM EDT [facility] NRBC Absolute 0.00 0.00 - 0.00 x10(3)/mc L 05/21/2024 3:41 PM EDT [facility] Blood VENOUS BLOOD SPECIMEN / Unknown IP Care Team Draw / Unknown 05/21/2024 3:00 PM EDT 05/21/2024 3:36 PM EDT Beverly Spears MD HEMATOLOGY ORDERABL ES [facility] [place] [address] * IR Tunneled Central Venous Access Non-Dialysis (05/21/2024 12:11 PM EDT) Anatomical Region Laterality Modality Chest, Vascular X-Ray Angiograph y Narrative 05/21/2024 5:12 PM EDT Table formatting from the original result was not included. Images from the original result were not included. IR PROCEDURE NOTE Procedure: Tunneled central venous catheter placement. Indication for Procedure: Per Allyn MIMS, Ave Kolb is a 69 y.o. male with PMH of CKD, DM, COPD, A.fib, admitted for RLE cellulitis and osteomyelitis s/p 2ng toe amputation requiring manager terminal IV antibiotic administration who presents to [...] guidance and a 4Fr sheath placed. ??[address] injection compatible single lumen catheter was [...] 14.1(H) <=4.9 mg/L 05/21/2024 10:05 AM EDT [facility] Blood VENOUS BLOOD SPECIMEN / Unknown IP Care Team Draw / Unknown 05/21/2024 4:58 AM EDT 05/21/2024 5:17 AM EDT Beverly Spears MD CHEMISTRY ORDERABLE S [facility] [place] [address] * US Retroperitoneal Complete (05/20/2024 10:36 AM EDT) Pathologist [facility] WORKSTATION ID [id number] [facility] Anatomical Region Laterality Modality Abdomen Ultrasound 05/20/2024 [...] AM Electronically signed by: Teofilo Ruiz MD, [facility] ([phone]), at 05/20/2024 11:30 AM Thank you for letting us participate in the care of this patient. If you are a health care provider and have any questions regarding this report, please contact the number above. For patients who have questions, please contact the health child day care center worker that requested your imaging first. ?Teofilo Ruiz, Staff Physician Electronically Signed Final Report ?? 05/20/2024 11:36 am Narrative 05/20/2024 11:37 AM EDT Renal ? (Signed Final 05/20/2024 11:36 am) PATIENT INFO: ID #: ? [id number] ?: ??[birth year] (69 yrs)(M) Name: ? AVE KOLB ? Visit Date: 05/20/2024 10:34 am PERFORMED BY: Attending: ?Joseph SOTOMAYOR, Teofilo Flores Resident: ? Kuldeep SOTOMAYOR, Trinidad Wright Performed By: ? Lulu Shin RDMS Referred By: ?BEVERLY SPEARS Location: ? [place] SERVICE(S) PROVIDED: URETRO - Retroperitoneal Complete - [id number] ? [id number] INDICATIONS: CKD, increase BUN TECHNIQUE/SCAN QUALITY: Scan [...] 05/20/2024 11:36 am) PATIENT INFO: ID #: [id number] : [birth year] (69 yrs)(M) Name: AVE KOLB Visit Date: 05/20/2024 10:34 am PERFORMED BY: Attending: Teofilo Ruiz MD Resident: Trinidad Light MD Performed By: Lulu Shin RDMS Referred By: BEVERLY SPEARS Location: [place] SERVICE(S) PROVIDED: URETRO - Retroperitoneal Complete - [id number] INDICATIONS: CKD, increase BUN TECHNIQUE/SCAN QUALITY: Scan [...] AM Electronically signed by: Teofilo Ruiz MD, [facility] ([phone]), at 05/20/2024 11:30 AM Thank you for letting us participate in the care of this patient. If you are a health care provider and have any questions regarding this report, please contact the number above. For patients who have questions, please contact the health child day care center worker that requested your imaging first. Teofilo Ruiz, Staff Physician Electronically Signed Final Report 05/20/2024 11:36 am Beverly Spears MD IMG US GEN ORDERABL ES * PTH (05/19/2024 5:09 PM EDT) Parathyroid Hormone 27 15 - 65 pg/mL 05/19/2024 6:15 PM EDT [facility] Blood VENOUS BLOOD SPECIMEN / Unknown IP Care Team Draw / Unknown 05/19/2024 5:09 PM EDT 05/19/2024 5:43 PM EDT Beverly Spears MD CHEMISTRY ORDERABLE S [facility] [place] [address] * (ABNORMAL) Iron and TIBC (05/19/2024 5:09 PM EDT) Iron 58 45 - 160 mcg/dL 05/19/2024 6:56 PM EDT [facility] Unsaturated Iron Binding Capacity 143 110 - 370 mcg/dL 05/19/2024 6:56 PM EDT [facility] TIBC 201(L) 250 - 450 mcg/dL 05/19/2024 6:56 PM EDT [facility] Iron Saturation 29 20 - 50 % 6:56 PM EDT [facility] Blood VENOUS BLOOD SPECIMEN / Unknown IP Care Team Draw / Unknown 05/19/2024 5:09 PM EDT 05/19/2024 5:43 PM EDT Beverly Spears MD CHEMISTRY ORDERABLE S [facility] [place] [address] * Ferritin (05/19/2024 5:08 PM EDT) Ferritin 191 31 - 409 ng/ml 05/19/2024 6:24 PM EDT [facility] Blood VENOUS BLOOD SPECIMEN / Unknown IP Care Team Draw / Unknown 05/19/2024 5:08 PM EDT 05/19/2024 5:43 PM EDT Beverly Spears MD CHEMISTRY ORDERABLE S Performing Organization Address [facility] Co de Phone Number [facility] [place] [address] * C diff Screen (05/18/2024 11:31 AM EDT) C Diff Interp Negative Negative 05/18/2024 3:02 PM EDT [facility] Comment:Clostridioides diffi cile is not present in the specimen. If patient is having diarrhea suspected to be from an infectious cause, then Soap & Water Contact Precautions are still required. If patient is having diarrhea with no suspected infectious cause use standard precautions. C Diff PCR Negative Negative, Indeterminate 05/18/2024 3:02 PM EDT [facility] Stool STOOL SPECIMEN / Unknown Non Blood Collection / Unknown 05/18/2024 11:31 AM EDT 05/18/2024 12:09 PM EDT Beverly Spears MD MICROBIOLOGY - GENE RAL ORDERABLES [facility] [place] [address] * C Diff PCR (05/18/2024 11:31 AM EDT) Stool STOOL SPECIMEN / Unknown Non Blood Collection / Unknown 05/18/2024 11:31 AM EDT 05/18/2024 12:09 PM EDT Beverly Spears MD MICROBIOLOGY - GENE RAL ORDERABLES [facility] [place] [address] * Electrolytes, urine, random (05/18/2024 8:57 AM EDT) Sodium, Urine 50 mMol/L 05/18/2024 12:09 PM EDT [facility] Potassium, Urine 13 mMol/L 05/18/2024 12:09 PM EDT [facility] Chloride, Urine 35 mMol/L 05/18/2024 12:09 PM EDT [facility] Urine URINE SPECIMEN / Unknown Non Blood Collection / Unknown 05/18/2024 8:57 AM EDT 05/18/2024 9:07 AM EDT Beverly Spears MD URINE ORDERABLES Performing Organization Address City/[facility]/ZIP Co de Phone Number [facility] [place] [address] * Creatinine, urine, random (05/18/2024 8:57 AM EDT) Only the most recent of2 resultswithin the time period is included. Creatinine, Urine 44 mg/dL 05/18/2024 9:36 AM EDT [facility] Urine URINE SPECIMEN / Unknown Non Blood Collection / Unknown 05/18/2024 8:57 AM EDT 05/18/2024 9:07 AM EDT Beverly Spears MD URINE ORDERABLES [facility] [place] [address] * Vancomycin Level, Random (05/17/2024 5:49 AM EDT) Only the most recent of8 resultswithin the time period is included. Vancomycin, Random 22.4 mg/L 2023 6:58 AM EDT [facility] Comment:This level is for de termination of the patient's vancomycin tbwf-igyoh-dif-curve (AUC) value. Contact the inpatient pharmacy for interpretation. Blood IP Care Team w / Nick 05/17/2024 5:49 AM EDT 05/17/2024 6:13 AM EDT Treva Diaz MD CHEMISTRY ORDERABL ES Performing Organization Address City/[facility]/ZIP Co de Phone Number [facility] [place] [address] * POCT Glucose (05/16/2024 11:46 PM EDT) Only the most recent of38 resultswithin the time period is included. Pathologist [facility] Glucose, POC 148 65 - 199 mg/dL [facility] Comment: Supplemental ranges: <140 mg/dL before meals <180 mg/dL all other times of the day Blood 05/16/2024 11:4 6 PM EDT 05/16/2024 11:46 PM EDT Treva Diaz MD POINT OF CARE TEST ORDERABLES Performing Organization Address City/[facility]/ZIP Co de Phone Number [facility] [place] [address] * (ABNORMAL) Differential, Automated (05/16/2024 5:14 AM EDT) Only the most recent of7 resultswithin the time period is included. Neutrophil % 79.4 % [facility] Neutrophil Absolute 9.22(H) 1.70 - 6.10 x10(3)/mc L [facility] Lymph % 6.6 % [facility] Lymphocytes Abs 0.8(L) 0.9 - 3.2 x10(3)/mc L [facility] Monocyte % 9.5 % [facility] Monocyte Abs 1.1(H) 0.3 - 0.9 x10(3)/ L [facility] Eos % 0.0 % [facility] Eosinophils Abs 0.0 0.0 - 0.4 x10(3)/[facility] Basophil % 0.2 % [facility] Baso Absolute 0.0 0.0 - 0.1 x10(3)/[facility] Immature Gran % 4.30 % [facility] Comment: Immature granulocytes(IG's)percentage and absolute count will include metamyelocytes, myelocytes, and promyelocytes. Blood smears from CBCs yielding IG's will be scanned manually for concordance. If this scan disagrees with the automated IG or if promyelocytes are noted, a manual differential will be performed. Immature Gran Absolute 0.50(H) 0.00 - 0.04 x10(3)/[facility] Blood 05/16/2024 5:14 AM EDT 05/16/2024 5:38 AM EDT Narrative Resulting Agency Comment Spec In Lab Carlotta Davis MD HEMATOLOGY OR DERABLES Performing Organization Address [facility]/State/[facility] Co de Phone Number [facility] [place] [phone] * MRSA PCR Screen ([facility]/CGP/APD/NLH) (05/15/2024 4:15 PM EDT) MRSA PCR Negative Negative [facility] MRSA (Interp) Methicillin-resist ant Staphylococcus aureus (MRSA) is NOT DETECTED The MRSA target DNA sequences (mec and SCC) were not detected within the acceptable ranges using the Xpert MRSA NxG on the GeneXpert Dx System ([employer]). This suggests the absence of MRSA in the patient specimen submitted for testing. This test is cleared by the U.S. Food and Drug Administration for clinical use and its performance characteristics have been verified by the [facility] at [facility]. This result does not rule out the presence of any other organisms. Rare false negative results may occur if MRSA is present at low concentrations with much higher concentrations of other organisms including MRSE or S. aureus with an empty SCC cassette. [facility] Comment: [VERIFIED DATE]05.15.24 Verified By:Lupe Jensen (Electronic Signature) Nasopharyngeal Swab 05/15/20 4:15 PM EDT 05/15/2024 6:28 PM EDT Comment:Specimen Type->Nasop haryngeal Swab Narrative Resulting Agency Comment Spec In Lab Treva Diaz MD MOLECULAR ORDERABL ES Performing Organization Address [facility] [place] [address] * Scan Doc: Telemetry Strips (05/14/2024 12:47 PM EDT) Narrative 05/14/2024 12:47 PM EDT Ordered by an unspecified provider. Scanning Provider MEDIA MGR SCAN EXT O RDR/RSLT * Anaerobic Culture (05/14/2024 11:33 AM EDT) Anaerobic Culture No anaerobic organisms isolated [facility] Toe 05/14/2024 11:3 3 AM EDT 05/14/2024 12:33 PM EDT Comment:PROXIMAL RIGHT 2ND T OE Narrative Resulting Agency Comment Spec In Lab Gennaro Meyers MD MICROBIOLOGY - GENE RAL ORDERABLES Performing Organization Address [facility]/[place] [address] * (ABNORMAL) Tissue culture (05/14/2024 11:33 AM EDT) Tissue Culture One colony of Coagulase negative Staphylococcus species(A) [facility] Gram Stain Few Neutrophils seen Rare Gram Positive Cocci in pairs seen Results called to and read back by Dr. Mihaela Galvan ??05/14/24 14:57:00 (A) [facility] Organism Coagulase negative Staphylococcus species(A) [facility] Organism Gram Positive Cocci in pairs(A) [facility] Toe 05/14/2024 11:3 3 [...] Sensitive Comment:Gentamicin i s not appropriate for [place]-therapy. Coagulase Negative Staphylococcus species Levofloxacin MICROSCAN METHOD [...] METHOD Sensitive Gennaro Meyers MD MICROBIOLOGY - [facility] ORDERABLES [facility] [place] [address] * Surgical Pathology Report (05/14/2024 11:32 AM EDT) Surgical Pathology Report [id number] ? Location: [id number]; 0421; A The signing [...] Shima Verified: ??05/20/2024 11:25 Performed at: ??-[facility] Dept. of Pathology, [place] [address] Metalizing Machine Operator: Polly Barnhart MD, FCAP, ??CLIA Certificate: [id number] SPECIMEN(S) SUBMITTED A - RIGHT 2ND TOE, [...] Sections/Processi ng: Blocks submitted for decalcification: A1-A2. Product Delivery Specialist sections in 2 cassettes as follows: ?A1-A2: ??Longitudinal section of digit ??cmk [facility] 05/14/2024 11:3 2 AM EDT Gennaro Meyers MD PATHOLOGY/CYTOLOGY ORDERABLES [facility] [place] [address] * Specimen to Pathology (05/14/2024 11:32 AM EDT) AP Specimen 05/14/2024 11:3 2 AM EDT 05/14/2024 11:32 AM EDT Narrative [facility] - 05/14/2024 11:32 AM EDT Specimen requisition ordered. ??Separate Pathology report to follow Treva Diaz MD PATHOLOGY/CYTOLOGY ORDERABLES Performing Organization Address City/[facility]/ZIP Co de Phone Number [facility] [place] [address] * Scan, Peripheral Blood (05/13/2024 5:29 AM EDT) Only the most recent of2 resultswithin the time period is included. Plat estimate Normal [facility] RBC Morphology Abnormal [facility] Sofía Cells 1-5 /HPF [facility] Plat, Giant Less than 1 /HPF [facility] Blood 05/13/2024 5:29 AM EDT 05/13/2024 5:49 AM EDT Narrative Resulting Agency Comment Spec In Lab Carlotta Davis MD HEMATOLOGY OR DERABLES Performing Organization Address City/[facility]/ZIP Co de Phone Number [facility] [place] [address] * Duplex for DVT, Leg, Unilat (05/12/2024 10:19 AM EDT) VB Text Report Department: Vascular Surgery Lab Patient: [id number] (AVE KOLB) CPT: 87809 Referring Physician: JULIUS COOK ?? Phone: Indications: [...] MD VASCULAR ORDERABLE S Performing Organization Address [facility] de Phone Number [facility] * (ABNORMAL) Sedimentation rate (05/12/2024 4:45 AM EDT) Sedimentation Rate Automated >119(H) 3 - 46 mm/hr [facility] Comment: Effective September 24, [...] MD HEMATOLOGY ORDERABLE S Performing Organization Address [facility] de Phone Number [facility] [place] [place] [address] * ANGY, legs, multiple levels (05/12/2024 3:22 AM EDT) VB Text Report Department: Vascular Surgery Lab Patient: [id number] (AVE KOLB) CPT: [id number] Referring Physician: ARELY DICKSON ?? Phone: Indications: [...] Lactate, whole blood, send to lab ([facility] (05/10/2024 6:55 AM EDT) Only the most recent of2 resultswithin the time period is included. [facility] Lactate WB 1.7 0.5 - 2.2 mmol/L [facility] Blood 05/10/2024 6:55 AM EDT 05/10/2024 7:00 AM EDT Narrative Resulting Agency Comment Spec In Lab Arely Dickson MD CHEMISTRY ORDERABLES Performing Organization Address [facility] Co de Phone Number [facility] [place] [address] * CK (05/10/2024 6:55 AM EDT) [facility] Creatine Kinase 58 0 - 200 unit/L [facility] Blood Venous Draw / Unknown 05/10/2024 6:55 AM EDT 05/10/2024 7:41 AM EDT Narrative Resulting Agency Comment Spec In Lab Emmanuel Corey DO CHEMISTRY ORDERABLES Performing Organization Address [facility] Co de Phone Number [facility] [place] [address] * MRI Foot wwo Contrast Right (05/10/2024 5:51 AM EDT) WORKSTATION ID [id number] [facility] Anatomical Region Laterality Modality Foot Right Magnetic [...] who have questions please contact the health child day care center worker that requested your imaging first. ? Electronically signed by: Trinidad Mota MD, [facility] ([phone]), at 05/10/2024 12:56 PM Narrative 05/10/2024 12:56 [...] patients who have questions please contactthe health child day care center worker that requested your imaging first. Electronically signed by: Trinidad Mota MD, [facility]([phone]), at 05/10/2024 12:56 PM Arely Dickson MD IMG MRI ORDERABLES * Urea nitrogen, urine, random (05/10/2024 4:15 AM EDT) Urea Nitrogen, Urine 580 mg/dL [facility] Urine 05/10/2024 4:15 AM EDT 05/10/2024 4:23 AM EDT Narrative Resulting Agency Comment Spec In Lab Arely Dickson MD URINE ORDERABLES Performing Organization Address [facility]/ZIP Co de Phone Number [facility] [place] [address] * Sodium, urine, random (05/10/2024 4:15 AM EDT) Sodium, Urine <20 mmol/L [facility] Urine 05/10/2024 4:15 AM EDT 05/10/2024 4:23 AM EDT Narrative Resulting Agency Comment Spec In Lab Arely Dickson MD URINE ORDERABLES Performing Organization Address [facility]/ZIP Co de Phone Number [facility] [place] [address] * (ABNORMAL) Skin/Superficial Wound Culture Toe (05/10/2024 2:56 AM EDT) Skin/Superfic ial Wound Culture Rare mixed bacterial morphotypes suggestive of normal cutaneous armani including Rare Gram Negative Rods (A) [facility] Gram Stain Many Neutrophils seen Few Gram Positive Cocci seen (A) [facility] Organism Gram Negative Rods(A) [facility] Organism Gram Positive Cocci(A) [facility] Superficial Wound TOE STRUCTURE / Unknown 05/10/2024 2:56 AM EDT 05/10/2024 5:18 AM EDT Comment:Right toe wound Narrative Resulting Agency Comment Spec In Lab Arely Dickson MD MICROBIOLOGY - GENER AL ORDERABLES [facility] [place] [address] * (ABNORMAL) Urinalysis without microscopic (05/10/2024 2:42 AM EDT) Glucose, Urine Dipstick Negative Negative mg/dL [facility] Protein, Urine Dipstick 30(A) Negative mg/dL [facility] Bilirubin, Urine Dipstick Negative Negative mg/dL [facility] Comment: Clinical correlation required for positive Urine Bilirubin results as false positive may occur with some drugs and drug related products. If a false positive is suspected a serum total bilirubin should be considered if clinically indicated. Urobilinogen, Urine Dipstick Normal Normal mg/dL [facility] pH, Urn (dipstick) 5.5 5.0 - 8.0 [facility] Blood, Urine Dipstick Large(A) Negative mg/dL [facility] Ketone, Urine Dipstick Negative Negative mg/dL [facility] Nitrite, Urine Dipstick Negative Negative [facility] Leukocytes, Urine Dipstick Small(A) Negative [facility] Appearance, Urine Dipstick Cloudy(A) Clear [facility] Specific [place] Urine Automated 1.017 1.005 - 1.030 [facility] Color, Urine Dipstick [place](A) Yellow [facility] Urine 05/10/2024 2:42 AM EDT 05/10/2024 2:57 AM EDT Narrative Resulting Agency Comment Spec In Lab Arely Dickson MD URINE ORDERABLES Performing Organization Address [facility] de Phone Number [facility] [place] [address] * EKG 12 Lead (05/10/2024 2:38 AM EDT) Ventricular rate 107 BPM MUSE SYSTEM QRS Duration 114 ms MUSE SYSTEM Q-T Interval 324 ms MUSE SYSTEM QTC Calculated (Bezet) 432 ms MUSE SYSTEM Calculated R [place] -46 degrees MUSE SYSTEM Calculated T [place] 47 degrees MUSE SYSTEM INTERPRETATION Atrial fibrillation Left axis deviation Abnormal ECG No previous ECGs available Confirmed by MD ARVIND, CHRISTIAN ([id number]) on 05/11/2024 3:17:18 PM MUSE SYSTEM 05/10/2024 2:38 AM EDT 05/11/2024 3:17 PM EDT Unknown ECG ORDERABLES Performing Organization Address [facility] de Phone Number MUSE SYSTEM * XR Chest One View (05/10/2024 2:37 AM EDT) WORKSTATION ID [id number] [facility] Anatomical Region Laterality Modality Chest N/A Digital Radiogra phy Impressions 05/10/2024 3:27 AM EDT Bibasilar atelectasis. Thank you for letting us participate in the care of this patient. ??If you are a health care provider and have any questions regarding this report, please contact the number below. ??For patients who have questions please contact the health child day care center worker that requested your imaging first. ? Narrative [...] patients who have questions please contactthe health child day care center worker that requested your imaging first. Arely Dickson MD IMG DX ORDERABLES * Blood culture (05/10/2024 2:32 AM EDT) Blood Culture No growth at 5 days. [facility] Blood STRUCTURE OF RIGHT HAND / Unknown 05/10/2024 2:32 AM EDT 05/10/2024 4:17 AM EDT Narrative Resulting Agency Comment Spec In Lab Arely Dickson MD MICROBIOLOGY - BLOOD ORDERABLES Performing Organization Address City/[facility]/ZIP Co de Phone Number [facility] [place] [address] * Type and Screen Validity (05/10/2024 2:20 AM EDT) T&S only valid at [facility] Comment:This Type and Screen result is only valid at the [facility] Blood 05/10/2024 2:20 AM EDT 05/10/2024 2:49 AM EDT Narrative Resulting Agency Comment Spec In Lab Anita Camacho MD BLOOD BANK LAB ORDER ANGELIQUE Performing Organization Address City/[facility]/ZIP Co de Phone Number [facility] [place] [address] * ABORH Recheck Status (05/10/2024 2:20 AM EDT) ABORH Recheck Order Order Placed [facility] ABORH Type Recheck Completed [facility] Blood 05/10/2024 2:20 AM EDT 05/10/2024 2:49 AM EDT Narrative Resulting Agency Comment Spec In Lab Anita Camacho MD BLOOD BANK LAB ORDER ANGELIQUE Performing Organization Address City/[facility]/ZIP Co de Phone Number [facility] [place] [place] [address] * (ABNORMAL) Prothrombin Time (05/10/2024 2:20 AM EDT) Prothrombin Time 27.9(H) 9.4 - 12.5 sec [facility] International Normalization Ratio 2.5 [facility] Comment: An INR <2.0 [...] MD HEMATOLOGY ORDERABLE S Performing Organization Address [facility]/ZIP Co de Phone Number [facility] [place] [address] * (ABNORMAL) Hemoglobin A1c (05/10/2024 2:20 AM EDT) Hemoglobin A1c 5.9(H) 4.3 - 5.6 % [facility] Comment: Reference Range: 4.3 [...] Mellitus, Diabetes Care 2013; 36: Suppl. 1, S67-16 Estimated Average Glucose See note mg/dL [facility] Comment: Estimated Average Glucose not appropriate for patients over 70 years of age. Blood 05/10/2024 2:20 AM EDT 05/10/2024 2:36 AM EDT Narrative Resulting Agency Comment Spec In Lab Arely Dickson MD CHEMISTRY ORDERABLES Performing Organization Address [facility] Co de Phone Number [facility] [place] [address] * Film Library- Storage Only CT Lower Extremity (2024 9:16 PM EDT) Narrative [facility] - 2024 9:16 PM EDT This exam is auto-finalizing. It's purpose is for storage only. Arely Dickson MD IMG FILM LIBRARY ORD ERABLES Performing Organization Address City/[facility]/ZIP Co de Phone Number [place], [place] * Film Library- Storage Only CT Chest Abdomen Pelvis (2024 9:16 PM EDT) Narrative [facility] - 2024 9:16 PM EDT This exam is auto-finalizing. It's purpose is for storage only. Arely Dickson MD IMG FILM LIBRARY ORD ERABLES [facility] Obion MA from Last 3 Months Advance Directives * Attempt Cardiopulmonary Resuscitation - Inpatient (Latest Code Status on File) Date Activated Date Inactivated Comments 05/10/2024 2:17 AM 05/23/2024 6:20 PM Question Answer Comments Code Status decision made by: Patient Content of discussion: Full code Healthcare Agents on File Name Relationship Healthcare Agent Relationship Communication Eddie Kolb Son/Upavjfxt-by-cov Health Care Agent Care Teams Stock Clipper Relationship Specialty Start Date End Date None None PCP - General 11/26/17
--- OUTSIDE RECORDS SUMMARY | 2024-06-06 16:29 | XMS_ITS | Encounter Summary ---
Author Organization [facility] Address [address] [place] [address] Care Team Providers Care Hospital Fellow Name Role Phone Cruzito Hager MD Primary Care Provider Lisa chamberlain Encounter Details Date Type Department Care Team (Late st Contact Info) Description 06/04/2024 Lab Requisition [facility] Pathology & Laboratory Medicine - [address] [address] Outr Resulting Lab, Provider Social History Tobacco Use Types Packs/Day Years Used Date Smoking Tobacco: Never Assessed Sex and Gender Information Value Date Recorded Sex Assigned at Not on file Gender Identity Not on file Sexual Orientation Not on file documented as of this encounter Plan of Treatment Not on file documented as of this encounter Procedures Procedure Name Priority Date/Time Associated Diagnosis Comments HEPATITIS C AB W REFLEX TO HCV RNA BY PCR Routine 06/03/2024 15:55 EDT HEPATITIS B SURFACE ANTIGEN Routine 06/03/2024 15:55 EDT documented in this encounter Results * HEPATITIS B SURFACE ANTIGEN (06/03/2024 15:55 EDT) Hep B Surface Ag Negative Negative 06/04/2024 18:55 EDT [facility] Blood VENOUS BLOOD / Unknown 06/03/2024 15:55 EDT 06/04/2024 17:25 EDT Provider Outr Resulting Lab CHEMISTRY & BLOOD GAS ORDERABLES [facility] [address] [place], [place] [address] * HEPATITIS C AB W REFLEX TO HCV RNA BY PCR (06/03/2024 15:55 EDT) Hep C Antibody Negative Negative 06/04/2024 19:27 EDT [facility] Blood VENOUS BLOOD / Unknown 06/03/2024 15:55 EDT 06/04/2024 17:25 EDT Provider Outr Resulting Lab CHEMISTRY & BLOOD GAS ORDERABLES [facility] [address], [place] [id number] documented in this encounter Visit Diagnoses Not on filedocumented in this encounter Care Teams Hospital Fellow Relationship Specialty Start Date End Date Cruzito Hager MD PCP - General 06/14/11 documented as of this encounter
--- OUTSIDE RECORDS SUMMARY | 2024-06-06 16:29 | XMS_ITS | Continuity of Care Document ---
Author Organization [place] - [facility] Address Tracee Matias [facility] [place] [address] Assessment Encounter Date Assessment Date Assessment LastModified [...] Abnormal Flag LastModifiedBy Organization Detail LastModifiedTime 05/09/2005/09/2024 x-ray imagi ng repor t Kisha t Name: Jossy Leyva Unit #: [id number] Loc: ER Orderi ng Provid er: Timothy blake,Yelena n PA Accoun t #: [id number] Status : PRE ER Primar [...] IMPRES YOANDY: No obviou s acute pulmon angel findin gs on this single AP portab [...] at the addres s above. Thank- you. [email or web address] [facility] [address], [place], [address] 05/12/2024 08:01:30 05/09/20 24 2024 vrad repor t Patien t Name: Jossy Leyva Unit #: [id number] Loc: ER Orderi ng Provid er: Accoun t #: [id number] Status : REG ER Primar y [...] zation : [facility] use at least one of these [...] mastia . IMPRES YOANDY: No acute pulmon angel infilt rate or pleura l fluid collec [...] MD. Orderi ng:Pamela Castillo MD Access ion#=[id number] Ordere d By: CC: ------ ------ [...] the addres s above. Thank- you. crystal [facility] [address] [place], [address] 05/12/2024 08:01:30 05/09/20 24 2024 vrad repor t Patien t Name: Jossy Leyva Unit #: [id number] Loc: ER Orderi ng Provid er: Accoun t #: [id number] Status : REG ER Primar y [...] MD. Orderi ng:Pamela Castillo MD Access ion#=[id number] Ordere d By: CC: ------ ------ [...] the addres s above. Thank- you. crystal [facility] [address] [place], [address] 05/12/2024 08:01:30 05/10/20 24 05/10/2024 CT imagi ng repor t Patien t Name: Jossy Leyva Unit #: [id number] Loc: ER Orderi ng Provid er: Yelena Henley Accoun t #: [id number] Status : DEP ER Primar [...] error, please notify us immedi ately at [phone] and return the origin al report to us at the addres s above. Thank- you. crystal [facility] [address] [place], [address] 05/12/2024 08:01:31 05/11/20 24 05/11/2024 CT imagi ng repor t Patien t Name: Jossy Leyva Unit #: [id number] Loc: ER Orderi ng Provid er: Yelena Henley Accoun t #: [id number] Status : DEP ER Primar [...] hial tree: Patent where visual ized. Pulmon angel parenc hyma: No consol idatio n or [...] age. IMPRES YOANDY: 1. No acute pulmon angel proces s. 2. No acute abdomi nal or pelvic proces s. RADIAT ION DOSE DELIVE RED: Total DLP Total DLP DATA REPOSI TORY: All CT scans at this facili ty are submit sebastián to the [facility] al Radiol ogy Data Regist [...] the addres s above. Thank- you. crystal [facility] [address], [place], [address] 05/12/2024 08:01:31 06/03/20 24 06/03/2024 vrad repor t Patien t Name: Jossy Leyva Unit #: [id number] Loc: ER Orderi ng Provid er: Accoun t #: [id number] Status : REG ER Primar y Care Provid er: Rishi on,Pat bimal Date of Exam: Sex: M : 1954 Age: 69 Exam(s ) PROCED URE INFORM ATION: Exam: XR Chest Exam date and time: 024 8:53 PM Age: 69 years old Clinic al indica tion: Other: SOB TECHNI QUE: Imagin g protoc ol: Radiol ogic exam of the chest. Views: 2 views. COMPAR TABITHA: CT CHEST/ ABD/PE L WO 024 7:36 PM FINDIN GS: Tubes, cathet ers and device s: There is a right international relations teacher al jugula r centra l venous cathet er presen t within tip of the cathet er at the cavoat ria juncti on. Lungs: There is pulmon angel venous conges tion. There is diffus e inters titial edema. Underl otf inflam matory or infect ious proces s not exclud ed. Pleura l spaces : There is a probab le small left pleura l effusi on. No eviden ce of pneumo thorax . Heart/ Medias tinum: The heart is enlarg ed. There is promin ence of the medias tinum. Bones/ joints : The skelet al struct ures and soft tissue s show no eviden ce of fractu re or other acute proces ses. Soft tissue s: The soft tissue s of the extrat horaci c region are unrema rkable . IMPRES YOANDY: 1. Probab le conges tive heart failur e. Underl otf inflam matory or infect ious proces s not exclud ed. 2. There is a right international relations teacher al jugula r centra l venous cathet er presen t within tip of the cathet er at the [facility]i on. 3. There is a probab le small left pleura l effusi on. Dictat ed and Ying ticate d by: Teofilo Torres MD. Orderi ng:Bessie IBB Atif Ch MD Access ion#=[id number] Ordere d By: CC: ------ ------ ------ ------ ------ ------ ------ ------ ------ ------ ------ ------ ---- Dictat ed By: Report s vrad 2052 Transc ribed By: Di Merge 2052 This is privil eged, confid ential inform ation intend ed only for the provid er named. Any use or distri bution by any person other than this provid er is strict ly prohib ited. If you receiv e this report in error, please notify us immedi ately at [phone] and return the origin al report to us at the addres s above. Thank- you. crystal [facility] [address], [place], [address] 06/04/2024 07:27:19 06/03/20 24 06/03/2024 vrad repor t Patijose t Name: Jossy Leyva Unit #: [id number] Loc: ER Orderi ng Provid er: Accoun t #: [id number] Status : REG ER Primar y Care Provid er: Rishi on,Chanda bimal Date of Exam: Sex: M : 1954 Age: 69 Exam(s ) PROCED URE INFORM ATION: Exam: CT Head Withou t Contra st Exam date and time: 024 8:59 PM Age: 69 years old Clinic al indica tion: Other: Fall, antico agulat ed TECHNI QUE: Imagin g protoc ol: Comput ed tomogr aphy of the head with contr. COMPAR TABITHA: No releva nt prior studie s availa ble. FINDIN GS: Brain: There is mild diffus e hetero geneit y of the white matter attenu ation, consis tent with chroni c white matter microa ngiopa thic ischem ic change s. There is mild diffus e cerebr al atroph y presen t. There is no eviden ce of intrac ranial hemorr graham. There is no eviden ce of acute intrac ranial injury or other pathol ogic proces s. There is no eviden ce of an acute ischem ic event. Cerebr al ventri cles: The ventri cular system demons trates mild diffus e compen satory enlarg ement. Parana selina sinuse s: Mucope rioste al thicke reji consis tent with chroni c sinusi tis. No air-fl uid levels to sugges t eviden ce of acute sinusi tis. Mastoi d air cells: The mastoi d aircel ls are normal . Orbita l caviti es: The orbits are normal withou t eviden ce of fractu re. There is no eviden ce of retro- bulbar hemorr graham. There is no eviden ce of globe or lens injury . Bones: There is a fractu re of the nasal bones age-in determ inate likely acute. The bony craniu m shows no eviden ce of injury or other acute pathol ogic proces ses. Soft tissue s: There is soft tissue swelli ng of the left presep judy perior bital soft tissue s. IMPRES YOANDY: 1. No eviden ce of an acute intrac ranial abnorm ality. 2. There is mild age-re lated atroph y and chroni c white matter ischem ic change s, with compen satory ventri cular dilati on. 3. There is a fractu re of the nasal bones age-in determ inate, likely acute. 4. There is soft tissue swelli ng of the left presep judy perior bital soft tissue s. Dictat ed and Authen ticate d by: Teofilo Torres MD. Orderi ng:Bessie Ch MD Access ion#=[id number] Ordere d By: CC: ------ ------ ------ ------ ------ ------ ------ ------ ------ ------ ------ ------ ---- Dictat ed By: Report s vrad 2058 Transc ribed By: Di Merge 2058 This is privil eged, confid ential inform [...] the addres s above. Thank- you. crystal [facility] [address], [place], [address] 06/04/2024 07:27:19 06/04/2006/04/2024 x-ray imagi ng repor t Patijose t Name: Jossy Leyva Unit #: [id number] Loc: ER Orderi ng Provid er: Jing Srivastava Accoun t #: [id number] Status : DEP ER Primar y Care Provid er: Rishi on,Chanda wallis Date of Exam: Sex: M Admiss ion Date: : 1954 Age: 69 Exam(s ) XR CHEST 2V PA LATERA L EXAM: XR CHEST 2V PA LATERA L CLINIC AL HISTOR Y: SOB TECHNI QUE: 2D digita l imagin g was perfor med. Two views. COMPAR TABITHA: CR XR PORTAB LE CHEST AP from 2023 FINDIN GS: Exam is limite d by under penetr ation and semi erect positi oning. HEART: Enlarg ed. Aorta: Not dilate d. PULMON ANGEL VASCUL ATURE: Promin ent. MEDIAS TINUM: Unrema rkable . LUNGS: No focal area of consol idatio n. PLEURA L SPACE: Questi on of tiny pleura l effusi ons. No pneumo thorax . BONE:U nremar kable for age. SOFT TISSUE S: Unrema rkable . Right international relations teacher al jugula r centra l venous cathet er presen t. IMPRES YOANDY: Findin gs consis tent with mild CHF. DATA REPOSI TORY: RADIAT ION DOSE DELIVE RED: Ordere d By: Jing Srivastava CC: ------ ------ ------ ------ ------ ------ ------ ------ ------ ------ ------ ------ - Dictat ed By: Sarthak Bhatia 844 Transc ribed By: Betzy Cordova 844 This is privil eged, confid ential inform [...] the addres s above. Thank- you. crystal [facility] [address] [place], [address] 06/04/2024 09:25:40 06/04/20 24 06/04/2024 CT imagi ng repor t Patijose t Name: Jossy Leyva Unit #: [id number] Loc: ER Orderi ng Provid er: Jing Srivastava Accoun t #: [id number] Status : DEP ER Primar y Care Provid er: Rishi on,Pat bimal Date of Exam: Sex: M : 1954 Age: 69 Exam(s ) a CT:CT head wo Exam(s ) CT HEAD WO EXAM: CT HEAD WO CLINIC AL HISTOR Y: fall, antico agulat ed. TECHNI QUE: Imagin g Protoc ol: Axial comput ed tomogr aphy images with villanueva l and sagitt al reform atted images were create d and review ed COMPAR TABITHA: No exams were availa ble for compar tabitha FINDIN GS: Ventri cles and Extra axial spaces : Normal in size and morpho logy for the patien t's age. Hemorr graham: None. Cerebr al parenc hyma: No eviden ce of acute infarc t or mass. Mild atroph y and white matter change s consis tent with the patien t's age. Midlin e shift: None. Brains tem/Ce rebell um: Normal . Bones: : No skull fractu re. Nondis placed nasal fractu re indete rminat e age. Visual ized Parana selina sinuse s:Nita r. Mastoi ds: Clear. Soft Tissue s: Soft tissue swelli ng over left orbit. ORBITS : Unrema rkable . PITUIT ANGEL: Not enlarg ed. IMPRES YOANDY: No acute intrac ranial proces s. Nasal fractu res, age indete rminat e. RADIAT ION DOSE DELIVE RED: Total DLP DATA REPOSI TORY: All CT [...] tion); or iterat cameron recons tructi on. 029: Total DLP = 0.00 mGy-cm Ordere d By: Jing Srivastava CC: ------ ------ ------ ------ ------ ------ ------ ------ ------ ------ ------ ------ ---- Dictat ed By: Sarthak Bhatia 49 49 Transc ribed By: Betzy Cordova 49 This is privil eged, confid ential inform ation intend ed only for the provid er named. Any use or distri bution by any person other than this provid er is strict ly prohib ited. If you receiv e this report in error, please notify us immpastor richards at [phone] and return the origin al report to us at the addres s above. Thank- you. crystal [facility] [address], [place], [address] 06/04/2024 09:25:40 Result Notes None recorded. Problems Name Status Onset Date Resolution Date Notes Provider Name and Address Organization Details Recorded Time Chronic obstructive pulmonary disease Active 201912/14/2021 - Comments only - Pepe Fly GTZ - lungs clear on exam. nonlabored. He stopped smoking greater than 10 years ago. Problem Code: J44.9; Problem Code Type: ICD-10; Not Available [facility] 3 05:06:14 Atrial fibrillation Active 201911/27/2022 - Comments only - Pepe Fly GTZ - Continues to be rate controlled. Continues on Xarelto. We will check a CBC. Problem Code: I48.91; Problem Code Type: ICD-10; Not Available [facility] 3 05:06:14 Essential hypertension Active 201911/27/2022 - Comments only - Pepebimal Bill RPA - Well controlled on current medication management. Problem Code: I10; Problem Code Type: ICD-10; Not Available [facility] 3 05:06:14 Type 2 diabetes mellitus without [...] E11.9; Problem Code Type: ICD-10; Not Available [facility] 05:06:14 Heart failure Active 201911/27/2022 - Comments only - Pepe Bill RPA - Appears stable on current medication management. No significant changes in lower extremity edema. If anything a bit improved. He continues on carvedilol and furosemide. Encouraged more routine exercise. Problem Code: I50.9; Problem Code Type: ICD-10; Not Available [facility] 05:06:14 Peripheral vascular disease Active 2019 Problem Code: I73.9; Problem Code Type: ICD-10; Not Available [facility] 3 05:06:14 Screening for malignant neoplasm of prostate Active 201907/26/2020 - Comments only - Pepe Fly GTZ - We will check a PSA Problem Code: Z12.5; Problem Code Type: ICD-10; Not Available [facility] 3 05:06:14 Dystrophia unguium Active 201909/06/2020 - Comments only - Pepe Fly GTZ - Referral has been made to podiatry. He has not heard on this referral yet Problem Code: L60.3; Problem Code Type: ICD-10; Not Available [facility] 3 05:06:15 Pain in thoracic spine Active 201908/19/2020 - Comments only - Pepe Bill TRESA - herniated disk 1997. 2016 MRI with L5-S1 spinal stenosis - subsequent steroid injection and ablation. Problem Code: M54.9; Problem Code Type: ICD-10; Not Available [facility] 3 05:06:15 Edema Active 201912/14/2021 - Comments only - Pepe Bill RPA - improved from a year ago. He restricts sodium. Compliant with his cardiac meds. No evidence of cellulitis which has been a significant issue in past. Problem Code: R60.9; Problem Code Type: ICD-10; Not Available [facility] 3 05:06:15 Malaise Active 202101/11/2022 - Improved [...] R53.81; Problem Code Type: ICD-10; Not Available [facility] 3 05:06:15 Tinnitus Active 202101/11/2022 - Comments [...] H93.19; Problem Code Type: ICD-10; Not Available [facility] 3 05:06:15 Carpal tunnel syndrome of right wrist Active 202212/21/2022 - Comments only - Pepe Bill RPA - confirmed on emg's Problem Code: G56.01; Problem Code Type: ICD-10; Not Available [facility] 3 05:06:15 Cellulitis Completed 201901/11/2022 Problem Code: L03.90; Problem Code Type: ICD-10; Not Available [facility] 3 05:06:37 Renal insufficiency Active [address], [place], [address] , [facility]. 11:54:52 Problem Notes None recorded. Medical Equipment [...] 2nd Gen Pen Needle 32 gauge x / USE 1 NEEDLE UNDER THE SKIN FOUR [...] pneumococcal, unspecified formulation 07/17/2020 completed Not Available [facility] 08/24/2023 05:17:59 Tdap 11/27/2022 completed Not Available [facility] 05:17:59 Influenza, high-dose, quadrivalent, PF 11/27/2022 completed Not Available [facility] 08/24/2023 05:18:00 COVID-19, mRNA, LNP-S, PF, 100 mcg/0.5mL dose or 50 mcg/0.25mL dose 12/10/2020 completed Not Available [facility] 08/24/2023 05:18:00 COVID-19, mRNA, LNP-S, PF, 100 mcg/0.5mL dose or 50 mcg/0.25mL dose 01/07/2021 completed Not Available [facility] 08/24/2023 05:18:00 COVID-19, mRNA, LNP-S, PF, 100 mcg/0.5mL dose or 50 mcg/0.25mL dose 03/15/2022 completed Not Available [facility] 08/24/2023 05:18:00 SARS-COV-2 (COVID-19) vaccine, UNSPECIFIED 09/17/2021 completed Not Available [facility] 08/24/2023 05:18:00 COVID-19, mRNA, LNP-S, bivalent, PF, 30 mcg/0.3 mL dose 11/27/2022 completed Not Available [facility] 08/24/20 23 05:18:00 pneumococcal polysaccharide PPV23 03/15/2022 completed Not Available [facility] 2022 05:18:00 influenza, unspecified formulation 07/17/2020 completed Not Available [facility] 08/24/2023 05:18:00 Past Encounters Encounter ID Performer Location Encounter Start Date Encounter Closed Date Diagnosis/Indication Diagnosis SNOMED-CT Code [id number] PEPE BILL PA-C [facility] [address] [place] [address] 05/27/2024 16:09:14 05/31/2024 04:05:12 Health Concerns Section Related Observation LastModified by Organization Detai ls LastModified Time None Recorded Concern Status LastModified by Organization Details LastModified Time None Recorded Payers Encounter Date Sequence Insurance Name Policy Number Policy White Covered Member ID White Member ID Guarantor Name 05/27/2024 1 *SELF PAY* Ted Hernandez
--- OUTSIDE RECORDS SUMMARY | 2024-06-06 16:29 | XMS_ITS | Encounter Summary ---
Author Organization [facility] Address [address] [place] [address] Care Team Providers Care Data Assistant Name Role Phone Cruzito Hager MD Primary Care Provider U cintia Encounter Details Date Type Department Care Team (Latest Contact Info) Description 01/15/2015 9:25 EDT - 01/15/2015 23:59 EDT Hospital Encounter [address] [address] Unknown, Provider, Discharge Disposition: Home or Self Care Social History Tobacco Use Types Packs/Day Years Used Date Smoking Tobacco: Never Assessed Sex and Gender Information Value Date Recorded Sex Assigned at Not on file Gender Identity Not on file Sexual Orientation Not on file documented as of this encounter Discharge Disposition Disposition Code Departure Means Destination Home or Self [facility] documented in this encounter Plan of Treatment Not on file documented as of this encounter Visit Diagnoses Not on filedocumented in this encounter Care Teams Data Assistant Relationship Specialty Start Date End Date Cruzito Hager MD PCP - General 06/14/11 documented as of this encounter
--- OUTSIDE RECORDS SUMMARY | 2024-06-06 16:29 | XMS_ITS | Encounter Summary ---
Author Organization [facility] Address [address] [place] [address] Care Team Providers Care Foamite Mixer Name Role Phone Cruzito Hager MD Primary Care Provider Lisa chamberlain Encounter Details Date Type Department Care Team (Late st Contact Info) Description 07/29/2020 Lab Requisition [facility] Pathology & Laboratory Medicine - [address] [id number] Outr Resulting Lab, Provider Social History Tobacco [...] Procedure Name Priority Date/Time Associated Diagnosis Comments PSA TOTAL, DIAGNOSTIC Routine 07/28/2020 7:59 EDT documented in this encounter Results * PSA TOTAL, DIAGNOSTIC (07/28/2020 7:59 EDT) PSA 0.4 0.0 - 4.5 ng/mL 07/29/2020 17:49 EDT [facility] Blood VENOUS BLOOD / Unknown 07/28/2020 7:59 EDT 07/29/2020 16:13 EDT Narrative [facility] - 07/29/2020 17:49 EDT NOTE: Serum PSA concentration should not be interpreted as absolute evidence for the presence or absence of malignant disease. Assayed on Siemens ADVIA Dizzionaur XPT using chemiluminescent technology.??Values obtained by using different assay methods cannot be used interchangeably. Provider Outr Resulting Lab CHEMISTRY & BLOOD GAS ORDERABLES [facility] [address] [place] [address] documented in this encounter Visit Diagnoses Not on filedocumented in this encounter Care Teams Foamite Mixer Relationship Specialty Start Date End Date Cruzito Hager MD PCP - General 06/14/11 documented as of this encounter
--- OUTSIDE RECORDS SUMMARY | 2024-06-06 16:29 | XMS_ITS | Continuity of Care Document ---
Author Organization [place] - [facility] Address [address] [place] [address] Assessment Encounter Date Assessment Date Assessment LastModified by Organization Details LastModified Time 05/30/2024 05/30/2024 The total time devoted to today's encounter, including both the uwvy-sa-vqba time with the patient and/or family/caregi rocio and mcz-zipb-qb-f derek time I personally spent is 20 [...] Kisha t Name: Jossy Leyva Unit #: [id number] Loc: ER Orderi ng Provid er: Yelena Henley Accoun t #: [id number] Status : PRE ER Primar [...] the addres s above. Thank- you. crystal [facility] [address] [place], [address] 05/12/2024 08:01:30 05/09/20 24 2024 vrad repor t Kisha t Name: Jossy Leyva Unit #: [id number] Loc: ER Orderi ng Provid er: Accoun t #: [id number] Status : REG ER Primar y [...] zation : [facility] one of [...] Orderi ng:P.B REMBERTO Castillo MD Access ion#=[id number] Ordere d By: CC: ------ ------ [...] the addres s above. Thank- you. crystal [facility] [address] [place], [address] 05/12/2024 08:01:30 05/09/2005/09/2024 vrad repor t Patien t Name: Jossy Leyva Unit #: [id number] Loc: ER Orderi ng Provid er: Accoun t #: [id number] Status : REG ER Primar y [...] zation : [facility] one of [...] MD. Orderi ng:PBerlin Castillo MD Access ion#=[id number] Ordere d By: CC: ------ ------ [...] the addres s above. Thank- you. crystal [facility] [address] [place], [address] 05/12/2024 08:01:30 05/10/2005/10/2024 CT imagi ng repor t Kisha santiago Name: Jossy Leyva Unit #: [id number] Loc: ER Orderi ng Provid er: Yelena Henley PRASANNA Accbud t #: [id number] Status : DEP ER Primar [...] error, please notify us immedi ately at [phone] and return the origin al report to us at the addres s above. Thank- you. crystal [facility] [address] [place], [address] 05/12/2024 08:01:31 05/11/20 24 05/11/2024 CT imagi ng repor t Patien t Name: Jossy Leyva Unit #: [id number] Loc: ER Orderi ng Provid er: Yelena Henley Accoun t #: [id number] Status : DEP ER Primar [...] ---- Dictat ed By: Moiz Sotelo M.D. [id number] Transc ribed By: Moiz Sotelo 912 This [...] the addres s above. Thank- you. crystal [facility] [address] [place], [address] 05/12/2024 08:01:31 06/03/2006/03/2024 vrad repor t Patien t Name: Jossy Leyva Unit #: [id number] Loc: ER Orderi ng Provid er: Accoun t #: [id number] Status : REG ER Primar y Care Provid er: Rishi on,Chanda wallis Date of Exam: Sex: M : 1954 Age: 69 Exam(s ) PROCED URE INFORM ATION: Exam: XR Chest Exam date and time: 8:53 PM Age: 69 years old Clinic al indica tion: Other: SOB TECHNI QUE: Imagin g protoc ol: Radiol ogic exam of the chest. Views: 2 views. COMPAR TABITHA: CT CHEST/ ABD/PE L WO 024 7:36 PM FINDIN GS: Tubes, cathet ers and device s: There is a right application internship al jugula r centra l venous cathet er presen t within [facility]. Lungs: There is pulmon angel venous [...] exclud ed. 2. There is a right application internship al jugula r centra l venous cathet er presen t within tip of the cathet er at the [facility] on. 3. There is a probab le small left pleura l effusi on. Dictat ed and Ying ticate d by: Teofilo Torres MD. Orderi ng:Bessie Ch MD Access ion#=[id number] Ordere d By: CC: ------ ------ [...] error, please notify us immedi ately at [phone] and return the origin al report to us at the addres s above. Thank- you. crystal [facility] [address] [place], [address] 06/04/2024 07:27:19 06/03/2006/03/2024 vrad repor t Patijose t Name: Jossy Leyva Unit #: [id number] Loc: ER Orderi ng Provid er: Accoun t #: [id number] Status : REG ER Primar y [...] Comput ed tomogr aphy of the head withou t contra st. COMPAR TABITHA: No releva nt prior studie [...] bital soft tissue s. Dictat ed and Ying lester d by: Teofilo Torres MD. Orderi ng:Bessie Ch MD Access ion#=[id number] Ordere d By: CC: ------ ------ [...] the addres s above. Thank- you. crystal [facility] [address] [place], [address] 06/04/2024 07:27:19 06/04/2006/04/2024 x-ray imagi ng danielle t Kisha t Name: Jossy Leyva Unit #: [id number] Loc: ER Orderi ng Provid er: Jing Srivastava Accbud t #: [id number] Status : DEP ER Primar y Care Provid er: Rishi hallChanda wallis Date of Exam: Sex: M Admiss [...] SOFT TISSUE S: Unrema rkable . Right application internship al jugula r centra l venous cathet [...] error, please notify us immedi ately at [phone] and return the origin al report to us at the addres s above. Thank- you. crystal [facility] [address] [place], [address] 06/04/2024 09:25:40 06/04/20 24 06/04/2024 CT imagi ng repor t Patien t Name: Jossy Leyva Unit #: [id number] Loc: ER Orderi ng Provid er: Jing Srivastava Accoun t #: [id number] Status : DEP ER Primar y Care Provid er: Rishi onChanda Date of Exam: Sex: M : 1954 [...] tion); or iterat cameron recons tructi on. [phone]: Total DLP = 0.00 mGy-cm Ordere [...] this report in error, please notify us immserinai maurice at and return the origin al report to us at the addres s above. Thank- you. crystal [place] [id number], [place], [address] 06/04/2024 09:25:40 Result Notes None recorded. Problems Name Status Onset Date Resolution Date Notes Provider Name and Address Organization Details Recorded Time Chronic obstructive pulmonary disease Active 201912/14/2021 - Comments only - Pepe Bill RPA - lungs clear on exam. nonlabored. He stopped smoking greater than 10 years ago. Problem Code: J44.9; Problem Code Type: ICD-10; Not Available [facility] 3 05:06:14 Atrial fibrillation Active [...] I10; Problem Code Type: ICD-10; Not Available [facility] 3 05:06:14 Type 2 diabetes mellitus [...] E11.9; Problem Code Type: ICD-10; Not Available [facility] 3 05:06:14 Heart failure Active 201911/27/2022 - Comments only - Pepe Fly GTZ - Appears stable on current medication management. No significant changes in lower extremity edema. If anything a bit improved. He continues on carvedilol and furosemide. Encouraged more routine exercise. Problem Code: I50.9; Problem Code Type: ICD-10; Not Available [facility] 3 05:06:14 Peripheral vascular disease Active 2019 Problem Code: I73.9; Problem Code Type: ICD-10; Not Available [facility] 3 05:06:14 Screening for malignant neoplasm of prostate Active 201907/26/2020 - Comments only - Pepe Bill RPA - We will check a PSA Problem Code: Z12.5; Problem Code Type: ICD-10; Not Available [facility] 3 05:06:14 Dystrophia unguium Active 201909/06/2020 - Comments only - Pepe Bill RPA - Referral has been made to podiatry. He has not heard on this referral yet Problem Code: L60.3; Problem Code Type: ICD-10; Not Available [facility] 3 05:06:15 Pain in thoracic spine Active 201908/19/2020 - Comments only - Pepe Bill RPA - herniated disk 1997. 2016 MRI with L5-S1 spinal stenosis - subsequent steroid injection and ablation. Problem Code: M54.9; Problem Code Type: ICD-10; Not Available [facility] 3 05:06:15 Edema Active 201912/14/2021 - Comments only - Pepe Bill RPA - improved from a year ago. He restricts sodium. Compliant with his cardiac meds. No evidence of cellulitis which has been a significant issue in past. Problem Code: R60.9; Problem Code Type: ICD-10; Not Available [facility] 3 05:06:15 Malaise Active 202101/11/2022 [...] R53.81; Problem Code Type: ICD-10; Not Available [facility] 3 05:06:15 Tinnitus Active 202101/11/2022 [...] H93.19; Problem Code Type: ICD-10; Not Available [facility] 3 05:06:15 Carpal tunnel syndrome of right wrist Active 202212/21/2022 - Comments only - Pepe Bill RPA - confirmed on emg's Problem Code: G56.01; Problem Code Type: ICD-10; Not Available [facility] 3 05:06:15 Cellulitis Completed 201901/11/2022 Problem Code: L03.90; Problem Code Type: ICD-10; Not Available [facility] 3 05:06:37 Renal insufficiency Active [address], [place], [address] , [facility]. 4 11:54:52 Problem Notes None recorded. Medical [...] pneumococcal, unspecified formulation 07/17/2020 completed Not Available [facility] 08/24/2023 05:17:59 Tdap 11/27/2022 completed Not Available [facility] 05:17:59 Influenza, high-dose, quadrivalent, PF 11/27/2022 completed Not Available [facility] 08/24/2023 05:18:00 COVID-19, mRNA, LNP-S, PF, 100 mcg/0.5mL dose or 50 mcg/0.25mL dose 12/10/2020 completed Not Available [facility] 08/24/2023 05:18:00 COVID-19, mRNA, LNP-S, PF, 100 mcg/0.5mL dose or 50 mcg/0.25mL dose 01/07/2021 completed Not Available [facility] 08/24/2023 05:18:00 COVID-19, mRNA, LNP-S, PF, 100 mcg/0.5mL dose or 50 mcg/0.25mL dose 03/15/2022 completed Not Available [facility] 08/24/2023 05:18:00 SARS-COV-2 (COVID-19) vaccine, UNSPECIFIED 09/17/2021 completed Not Available [facility] 08/24/2023 05:18:00 COVID-19, mRNA, LNP-S, bivalent, PF, 30 mcg/0.3 mL dose 11/27/2022 completed Not Available [facility] 08/24/20 05:18:00 pneumococcal polysaccharide PPV23 03/15/2022 completed Not Available [facility] 2022 05:18:00 influenza, unspecified formulation 07/17/2020 completed Not Available [facility] 08/24/2023 05:18:00 Past Encounters Encounter ID Performer Location Encounter Start Date Encounter Closed Date Diagnosis/Indication Diagnosis SNOMED-CT Code [id number] PEPE BILL PA-C [facility] [address] [place] [address] 05/27/2024 16:09:14 05/31/2024 04:05:12 [id number] PEPE BILL PA-C [facility] [address] [place] [address] 05/30/2024 10:56:10 05/30/2024 12:20:08 Renal insufficiency [id number] Type 2 bridgette betes mellitus without complication [id number] Health Concerns Section Related Observation LastModified by [...] Recorded Time 05/30/2024 text/html HPI Notes: Asim i s currently in rehab facility after suffering [...] PEPE BILL PA-C [address], [place], [address], [facility]. 05/30/2024 11:55:32
--- OUTSIDE RECORDS SUMMARY | 2024-06-06 16:29 | XMS_ITS | Encounter Summary ---
Author Organization [facility] Address [address] [place] [address] Care Team Providers Care Thermodynamics Teacher Name Role Phone Cruzito Hager MD Primary Care Provider Lisa chamberlain Encounter Details Date Type Department Care Team (Late st Contact Info) Description 06/04/2024 Lab Requisition [facility] Pathology & Laboratory Medicine - [address] [address] Outr Resulting Lab, Provider Social History Tobacco [...] Procedure Name Priority Date/Time Associated Diagnosis Comments HIV 1/2 ANTIGEN AND ANTIBODY, 4TH GENERATION Routine 06/03/2024 15:55 EDT documented in this encounter Results * HIV 1/2 ANTIGEN AND ANTIBODY, 4TH GENERATION (06/03/2024 15:55 EDT) HIV 1 and 2 Antibody/p24 Antigen, 4th Generation Negative Negative 06/04/2024 19:41 EDT [facility] Comment:If acute HIV-1 infec tion is suspected in a high risk patient, submit plasma specimen for HIV-1 RNA quantitation test. Blood VENOUS BLOOD / Unknown 06/03/2024 15:55 EDT 06/04/2024 17:25 EDT Narrative [facility] - 06/04/2024 19:41 EDT Fourth Generation assay performed on the Siemens Centaur XPT. Provider Outr Resulting Lab IMMUNOLOGY A ND SEROLOGY ORDERABLES [facility] [address] [place] [address] documented in this encounter Visit Diagnoses Not on filedocumented in this encounter Care Teams Thermodynamics Teacher Relationship Specialty Start Date End Date Cruzito Hager MD PCP - General 06/14/11 documented as of this encounter
--- OUTSIDE RECORDS SUMMARY | 2024-06-06 16:29 | XMS_ITS | Encounter Summary ---
Author Organization [facility] Address [address] [place] [address] Care Team Providers Care Entertainment & Media Correspondent Name Role Phone Unknown, Provider Primary Care Provider [phone] Encounter Details Date Type Department Care Team (Late st Contact Info) Description 06/09/2011 Results Only [facility] - [facility] ([facility]) [address] [place], [place] [address] Nicolas Chen MD [address] [place], [place] [address] Social History Tobacco Use Types Packs/Day Years Used Date Smoking Tobacco: Never Assessed Sex and Gender Information Value Date Recorded Sex Assigned at Not on file Gender Identity Not on file Sexual Orientation Not on file documented as of this encounter Plan of Treatment Not on file documented as of this encounter Procedures Procedure Name Priority Date/Time Associated Diagnosis Comments SURGICAL PATHOLOGY Routine 06/09/2011 0:00 EDT documented in this encounter Results * SURGICAL PATHOLOGY (06/09/2011 0:00 EDT) Pathology Report: SURGICAL PATHOLOGY REPORT ? Reports generated via electronic interface contain original data; ? however they are lacking the format of the original report. ? Caution should be taken when reading/interpreti ng unformatted reports. ? Name: ? KNIGHTS, GALE ? Accession #: ? [id number] ? : ? 1955 (Age: 56) ??M ? Collect Date: ? 06/09/2011 ? Location: ? [facility] ? Receive Date: ? 06/10/2011 ? Provider: NICOLAS CHEN MD ? Copy to: SO GUERRERO MD ? Final Pathologic Diagnosis: ? Rectum, polyps, biopsies: ? - Fragments of hyperplastic polyp(s). ? Document reviewed and electronically signed by: ? GÉNESIS C MCCRARY MD ? Report ??Date: 06/13/2011 13:09 ? By the signature above, the attending physician certifies that he/she has ? personally conducted a gross and/or microscopic examination of the described ? specimens and rendered or confirmed the above diagnosis. ? Specimen(s) Received: ? Rectal polyps x3 ? Clinical History: ? Colorectal screening ? Gross Description: ? Received in formalin labelled Knights, Gale Anna and rectal polyps x3 ?? are three pink-crook irregular soft tissues ranging from 0.2 x 0.2 x 0.2 cm to 0.4 x 0.3 x 0.2 cm. ??Submitted in toto in a single cassette. ??(Dalton Morejon)/kmm ? End of Report ? [facility] 06/09/2011 06/10/2011 9:3 5 EDT Nicolas Chen MD PATHOLOGY ORDERABLES Performing Organization Address City/State/[place] Co de Phone Number [facility] [address] [place] [address] documented in this encounter Visit Diagnoses Not on filedocumented in this encounter Care Teams Entertainment & Media Correspondent Relationship Specialty Start Date End Date Unknown, Provider, PCP - General 06/10/11 06/13/11 documented as of this encounter
--- OUTSIDE RECORDS SUMMARY | 2024-06-06 16:29 | XMS_ITS | Clinical Summary ---
Author Organization [facility] Address [address] [place] [address] Care Team Providers Care Plastic Press Operator Name Role Phone Cruzito Hager MD Primary Care Provider U joseailleroy Encounters Date Type Department Care Team Description 06/04/2024 Lab Requisition [facility] Pathology & Laboratory [address] [address] Outr Resulting Lab, Provider 06/04/2024 Lab Requisition [facility] Pathology & Laboratory [address] [address] Outr Resulting Lab, Provider from Last 3 Months Social History Tobacco Use Types Packs/Day Years Used Date Smoking Tobacco: Never Assessed Sex and Gender Information Value Date Recorded Sex Assigned at Not on file Gender Identity Not on file Sexual Orientation Not on file Plan of Treatment Health Maintenance Due Date Last Done Comments RSV Immunization ( o r 60+ Years) (1 - 1-dose 60+ series) 2014 Fall Risk Screening 2019 COVID-19 Vaccine (2022- season) 2023 Hepatitis C Screen Completed 06/03/2024 Procedures Procedure Name Priority Date/Time Associated Diagnosis Comments HEPATITIS B SURFACE ANTIGEN Routine 06/03/2024 15:55 EDT HEPATITIS C AB W REFLEX TO HCV RNA BY PCR Routine 06/03/2024 15:55 EDT HIV 1/2 ANTIGEN AND ANTIBODY, 4TH GENERATION Routine 06/03/2024 15:55 EDT from Last 3 Months Results * HEPATITIS C AB W REFLEX TO HCV RNA BY PCR (06/03/2024 15:55 EDT) Hep C Antibody Negative Negative 06/04/2024 19:27 EDT [facility] Blood VENOUS BLOOD / Unknown 06/03/2024 15:55 EDT 06/04/2024 17:25 EDT Provider Outr Resulting Lab CHEMISTRY & BLOOD GAS ORDERABLES Performing Organization Address [facility]/ZIP Co de Phone Number [facility] [address] [place] [address] * HEPATITIS B SURFACE ANTIGEN (06/03/2024 15:55 EDT) Hep B Surface Ag Negative Negative 06/04/2024 18:55 EDT [facility] Blood VENOUS BLOOD / Unknown 06/03/2024 15:55 EDT 06/04/2024 17:25 EDT Provider Outr Resulting Lab CHEMISTRY & BLOOD GAS ORDERABLES Performing Organization Address [facility] Co de Phone Number [facility] [address] [place] [address] * HIV 1/2 ANTIGEN AND ANTIBODY, 4TH GENERATION (06/03/2024 15:55 EDT) HIV 1 and 2 Antibody/p24 Antigen, 4th Generation Negative Negative 06/04/2024 19:41 EDT [facility] Comment:If acute HIV-1 infec tion is suspected in a high risk patient, submit plasma specimen for HIV-1 RNA quantitation test. Blood VENOUS BLOOD / Unknown 06/03/2024 15:55 EDT 06/04/2024 17:25 EDT Narrative [facility] - 06/04/2024 19:41 EDT Fourth Generation assay performed on the Siemens Sisasaaur XPT. Provider Outr Resulting Lab IMMUNOLOGY A ND SEROLOGY ORDERABLES Performing Organization Address City/[facility]/ZIP Co de Phone Number [facility] [address] [place] [address] from Last 3 Months Care Teams Plastic Press Operator Relationship Specialty Start Date End Date Cruzito Hager MD PCP - General 06/14/11
--- OUTSIDE RECORDS SUMMARY | 2024-06-06 16:29 | XMS_ITS | Encounter Summary ---
Author Organization [facility] Address [address] [place] [address] Care Team Providers Care Larriman Name Role Phone Cruzito Hager MD Primary Care Provider Lisa chamberlain Encounter Details Date Type Department Care Team (Late st Contact Info) Description 07/11/2020 Lab Requisition [facility] Pathology & Laboratory Medicine - [address] [address] Outr Resulting Lab, Provider Social History Tobacco [...] Procedure Name Priority Date/Time Associated Diagnosis Comments ZZCOVID-19 TEST [facility] LAB PCR Today 07/11/2020 8:50 EDT COVID-19 TESTING Routine 07/11/2020 8:50 EDT documented in this encounter Results * COVID-19 TEST [facility] PCR (07/11/2020 8:50 EDT) Swab ENTIRE NASOPHARYNX / Unknown 07/11/2020 8:50 EDT 07/11/2020 15:32 EDT Provider Outr Resulting Lab MICROBIOLOGY - GENERAL ORDERABLES [facility] [address] [place] [address] * COVID-19 TESTING (07/11/2020 8:50 EDT) COVID-19 rt-PCR Result Negative Negative 07/11/2020 19:36 EDT [facility] Comment: This test has not been FDA cleared or approved. This test has been authorized by FDA under an EUA for use by authorized laboratories. This test has been authorized only for detection of nucleic acid from 2019-nCoV, not for any other viruses or pathogens. This test is only authorized for the duration of the declaration that circumstances exist justifying the authorization of emergency use of in vitro diagnostic tests for detection and/or diagnosis of 2019-nCoV under section 564(b)(1) of Act, 21 U.S.C ?? 360bbb-3(b) (1), unless the authorization is terminated or revoked sooner. Negative results do not preclude 2019-nCoV infection and should not be used as the sole basis for treatment or other patient management decisions. Negative results must be combined with clinical observations, patient history, and epidemiological information. Performed on the ITT EXIMher Fusion instrument Performing Lab [facility] [place] [facility] 07/11/2020 19:36 EDT [facility] Swab 07/11/2020 8:50 EDT 07/11/2020 15:32 EDT Provider Outr Resulting Lab MICROBIOLOGY - GENERAL ORDERABLES [facility] [address] [place] [address] documented in this encounter Visit Diagnoses Not on filedocumented in this encounter Care Teams Larriman Relationship Specialty Start Date End Date Cruzito Hager MD PCP - General 06/14/11 documented as of this encounter
--- OUTSIDE RECORDS SUMMARY | 2024-06-06 16:29 | XMS_ITS | Encounter Summary ---
Author Organization [facility] Address [address] [place] [address] Care Team Providers Care Cart Attendant Name Role Phone Cruzito Hager MD Primary Care Provider Lisa chamberlain Encounter Details Date Type Department Care Team (Late st Contact Info) Description 12/15/2021 Lab Requisition [facility] Pathology & Laboratory Medicine - [address] [id number] Outr Resulting Lab, Provider Social History Tobacco [...] Associated Diagnosis Comments PSA TOTAL, DIAGNOSTIC Routine 12/14/2021 11:30 EST documented in this encounter Results * PSA TOTAL, DIAGNOSTIC (12/14/2021 11:30 EST) PSA 0.5 0.0 - 4.5 ng/mL 12/15/2021 18:46 EST [facility] Blood VENOUS BLOOD / Unknown 12/14/2021 11:30 EST 12/15/2021 17:18 EST Narrative [facility] - 12/15/2021 18:46 EST NOTE: Serum PSA concentration should not be interpreted as absolute evidence for the presence or absence of malignant disease. Assayed on Siemens ADVIA Pond Biofuelsaur XPT using chemiluminescent technology.??Values obtained by using different assay methods cannot be used interchangeably. Provider Outr Resulting Lab CHEMISTRY & BLOOD GAS ORDERABLES [facility] [address] [place] [address] documented in this encounter Visit Diagnoses Not on filedocumented in this encounter Care Teams Cart Attendant Relationship Specialty Start Date End Date Cruzito Hager MD PCP - General 06/14/11 documented as of this encounter
--- OUTSIDE RECORDS SUMMARY | 2024-06-06 16:29 | XMS_ITS | Encounter Summary ---
[facility] [place] [address] Care Team Providers Care Precinct Police Sergeant Name Role Phone None Primary Care Provider Unavailabl e Encounter Details Date Type Department Care Team (Late st Contact Info) Description 05/30/2024 Telephone [place] [phone] Lu Mcfarland APRN [facility] [place] [address] Social History Tobacco Use Types Packs/Day Years Used Date Smoking Tobacco: Former Cigarettes 14 0.6 S tarted: 2023 Smokeless Tobacco: Never Alcohol Use Standard Drinks/Week Comments Yes 0 (1 standard drink = 0.6 oz pur e alcohol) 3-[address] [facility] IPV Inpatient Questions Answer Date [...] 06/04/2024. Call to patient's rehab center in [facility] to inquire about recent abnormal lab work. Patient's CRP increased from 14.1 to 171 in five days. Per the unit nurse classification case manager, patient, has quite a bitof edema in both of his legs. His edema is much worse. He also states that patient is being treated for a sacral decubitus which could be causing the CRP increase. The facility has an MD and DAM OPERATOR providing medical care to the patients and [...] follow-up per the rehab with MD and DAM OPERATOR EOT visit scheduled in ID next week Repeat lab work early next week: CBC w/diff, CMP, and CRP Lu Mcfarland APRN, Infectious Disease 05/30/2024 12:30 PM documented in this encounter Plan of Treatment Upcoming Encounters Date Type Department Care Team (Late st Contact Info) Description 06/10/2024 10:30 AM EDT Office [place] [address] Elkin Garcia MD [facility] [address] [place] [address] documented as of this encounter Visit Diagnoses Not on filedocumented in this encounter Care Teams Precinct Police Sergeant Relationship 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
--- OUTSIDE RECORDS SUMMARY | 2024-06-06 16:29 | XMS_ITS | Referral Summary ---
Author Organization [facility] Address [address] [place] [address] Care Team Providers Care Plastics Design Engineer Name Role Phone Cruzito Hager MD Primary Care Provider U navailable Encounters Date Type Department Care Team Description 06/04/2024 Lab Requisition [facility] [address] [address] Outr Resulting Lab, Provider 06/04/2024 Lab Requisition [facility] [address] [address] Outr Resulting Lab, Provider from Last 3 Months Social History Tobacco Use Types Packs/Day Years Used Date Smoking Tobacco: Never Assessed Sex and Gender Information Value Date Recorded Sex Assigned at Not on file Gender Identity Not on file Sexual Orientation Not on file Plan of Treatment Not on file Procedures Procedure Name Priority Date/Time Associated Diagnosis [...] C Antibody Negative Negative 06/04/2024 19:[address] [facility] Blood VENOUS BLOOD / Unknown 06/03/2024 15:55 EDT 06/04/2024 17:25 EDT Provider Outr Resulting Lab CHEMISTRY & BLOOD GAS ORDERABLES Performing Organization Address City/[facility]/ZIP Co de Phone Number [facility] [address] [place], [place] [id number] * HEPATITIS B SURFACE ANTIGEN (06/03/2024 15:55 EDT) Hep B Surface Ag Negative Negative 06/04/2024 18:[address] [facility] Blood VENOUS BLOOD / Unknown 06/03/2024 15:55 EDT 06/04/2024 17:25 EDT Provider Outr Resulting Lab CHEMISTRY & BLOOD GAS ORDERABLES Performing Organization Address [facility] Phone Number [facility] [address] [place] [address] * HIV 1/2 ANTIGEN AND ANTIBODY, 4TH GENERATION (06/03/2024 15:55 EDT) HIV 1 and 2 Antibody/p24 Antigen, 4th Generation Negative Negative 06/04/2024 19:[address] [facility] Comment:If acute HIV-1 infec tion is suspected in a high risk patient, submit plasma specimen for HIV-1 RNA quantitation test. Blood VENOUS BLOOD / Unknown 06/03/2024 15:55 EDT 06/04/2024 17:25 EDT Narrative [facility] - 06/04/2024 19:41 EDT Fourth Generation assay performed on the [employer] XPT. Provider Outr Resulting Lab IMMUNOLOGY A ND SEROLOGY ORDERABLES Performing Organization Address [facility] Co de Phone Number [facility] [address] [place], [place] [phone] from Last 3 Months Care Teams Plastics Design Engineer Relationship Specialty Start Date End Date Cruzito Hager MD PCP - General 06/14/11
--- OUTSIDE RECORDS SUMMARY | 2024-06-06 16:29 | XMS_ITS | Encounter Summary ---
Author Organization [facility] [place] [address] Care Team Providers Care Web Content Director Name Role Phone None Primary Care Provider Unavailabl e Encounter Details Date Type Department Care Team (Late st Contact Info) Description 05/26/2024 Telephone [place] [phone] Marina Mason RN Social History Tobacco Use Types Packs/Day Years Used Date Smoking Tobacco: Former Cigarettes 14 0.6 S tarted: 2023 Smokeless Tobacco: Never Alcohol Use Standard Drinks/Week Comments Yes 0 (1 standard drink = 0.6 oz pur e alcohol) 3-4 PER [facility] Inpatient Questions Answer Date Recorded Does [...] Antimicrobials: Rodriguez Hein MD Review/Pertinent information: 1409: 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 Faxed to [facility] on 05/26/24 at 1439 Fax confirmation on 05/26/24 at 1441 Documents faxed: OPAT order (see above) May f/ appointment schedule F/u: Weekly labs 06/03: ID CAR HIKER Lu Mason BS, RN, ACM-RN OPAT Program documented in this encounter Plan of Treatment Upcoming Encounters Date Type Department Care Team (Late st Contact Info) Description 06/10/2024 10:30 AM EDT Office [place] [address] Elkin Garcia MD [facility] [place] [address] documented as of this encounter Visit Diagnoses Not on filedocumented in this encounter Care Teams Web Content Director Relationship 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
--- OUTSIDE RECORDS SUMMARY | 2024-06-06 16:29 | XMS_ITS | Encounter Summary ---
Author Organization [facility] Address [address] [place] [address] Care Team Providers Care Sour Bleaching Pleater Name Role Phone Cruzito Guerrero MD Primary Care Provider Lisa chamberlain Encounter Details Date Type Department Care Team (Late st Contact Info) Description 01/15/2015 Results Only [facility] [phone] Oliverio Jimenez, DO [address] [place] [address] Social History Tobacco Use Types Packs/Day Years Used Date Smoking Tobacco: Never Assessed Sex and Gender Information Value Date Recorded Sex Assigned at Not on file Gender Identity Not on file Sexual Orientation Not on file documented as of this encounter Plan of Treatment Not on file documented as of this encounter Procedures Procedure Name Priority Date/Time Associated Diagnosis Comments SURGICAL PATHOLOGY Routine 01/15/2015 18 :21 EDT documented in this encounter Results * SURGICAL PATHOLOGY (01/15/2015 18:21 EDT) Pathology Report: SURGICAL PATHOLOGY REPORT Reports generated via electronic interface contain original data; however they are lacking the format of the original report. Caution should be taken when reading/interpret ing unformatted reports. Name: ? JOSSY KOLB ? Accession #: ? [id number] ? : ? 1955 (Age: 59) ??M ? Collect Date: ? 01/15/2015 ? Location: ? [facility] ? Receive Date: ? 01/15/2015 ? Provider: OLIVERIO JIMENEZ DO Copy to: CRUZITO GUERRERO MD ? Final Pathologic Diagnosis: A. COLON, SIGMOID, POLYP, BIOPSY: - ??Fragment of hyperplastic polyp. Document reviewed and electronically signed by: RC CHEUNG MD Report ??Date: 01/18/2015 16:29 By the signature above, the attending physician certifies that he/she has personally conducted a gross and/or microscopic examination of the described specimens and rendered or confirmed the above diagnosis. Specimen(s) Received: Sigmoid polyp Clinical History: Anemia Gross Description: ? Received in formalin labelled with proper patient identification (initials K, G) and sigmoid polyp is a single pink-crook tissue fragment (4.5 x 0.3 x 0.3 cm). Submitted intact in 1. Dr. Verma 01/16/2015 01:32 PM End of Report [facility] 01/15/2015 18:2 1 EDT 01/15/2015 18:21 EDT Oliverio Jimenez DO PATHOLOGY ORDERABLES [facility] [address] [place] [address] documented in this encounter Visit Diagnoses Not on filedocumented in this encounter Care Teams Sour Bleaching Pleater Relationship Specialty Start Date End Date Cruzito Guerrero MD PCP - General 06/14/11 documented as of this encounter
--- OUTSIDE RECORDS SUMMARY | 2024-06-06 16:31 | XMS_ITS | Encounter Summary ---
[place] [address] Care Team Providers Care Knife Glazer Name Role Phone None Primary Care Provider Unavailabl e Reason for Referral * Consultation (Routine) - Authorized Specialty Diagnoses / Procedures Referred By Contac t Referred To Contact Nephrology Diagnoses Stage 4 chronic kidney disease Juan José Harrison MD [facility] [place] [address] [facility] Nephrology [address] [place] [phone] Referral ID Status Reason Start Date Expiration Date Visits Requested Visits Authorized [id number] Authorized Specialty Service Requested 05/23/2024 05/23/2025 1 1 * Consultation (Routine) - Authorized Specialty Diagnoses / Procedures Referred By Contac t Referred To Contact Infectious Diseases Diagnoses Osteomyelitis of second toe of right foot Rodriguez Hein MD [facility] [place] [address] [facility] Infectious Dis [address] [place] [phone] Referral ID Status Reason Start Date Expiration Date Visits Requested Visits Authorized [id number] Authorized Assume Subset of Care 05/17/2024 05/17/2025 1 1 Reason for Visit * Auth/Cert (Routine) Specialty Diagnoses / Procedures Referred By Contac t Referred To Contact Diagnoses Septic shock septiic shock Procedures ER Tho Aquino MD [facility] [place] [address] [facility] Referral ID Status Reason Start Date Expiration Date Visits Re quested Visits Authorized [id number] 1 1 Encounter Details Date Type Department Care Team (Latest Contact Info) Description 05/10/2024 2:12 AM EDT - 05/23/2024 4:14 PM EDT Hospital Encounter Surgical Unit Level 4 [place] [id number] Tho Dickson MD [facility] [place] [address] Mary De La Fuente MD [address] [place] [address] [place] [address] [place] [address] Septic shock; Altered tissue perfusion; Osteomyelitis of second toe of right foot; Stage 4 chronic kidney disease Discharge Disposition: Rehab Center in a Facility Social History Tobacco Use Types Packs/Day Years Used Date Smoking Tobacco: Former Cigarettes 14 0.6 S tarted: 2023 Smokeless Tobacco: Never Tobacco Cessation:Counseling Given: Not Answered Alcohol Use Standard Drinks/Week Comments Yes 0 (1 standard drink = 0.6 oz pur e alcohol) 3-4 PER [facility] Inpatient Questions Answer Date Recorded Does Anyone [...] Jossy Shanks Patient Age: 69 y.o. Language: Tajik Race: White Ethnicity: Not nor Admit date: [...] your inpatient physician through the [facility] Adjuster Electrical Contacts . Issues afterhours and on weekends will [...] home oxygen, HFpEF, HTN who presented to [facility] for rt LE cellulitis, transferred to [facility] for septic shock. At end of March he dropped cylinder block on rt foot, bleeding and painful. Kept bandaged and sock on it, same sock on it for the last week, reports sock became fused to wound. Denies paresthesia. Wasable to walk w/out difficulty. In last several days erythema and edema spread upper Rt LE to knee. Fevers & chills for last 24hrs. Leonidas lightheaded, weak, & couldn't get out of [...] OSH departure. On arrival to [facility]: HR 96, o2 sat mid 90s on [...] same day as transfer to [facility]. On the general medicine floor, he was [...] border dressing. (Melgisorb Ag 6x6 PS # [id number]) (Melgisorb Ag 4x4 PS # [id number]) Sacrum/ischium: open to air, utilize Z-guard if [...] 167.8 kg (369 lb 14.9 oz) (05/23/24 06) Functional and Cognitive Status: functional requiring rehab, [...] 05/10/2024 2:37 AM) Result Value WORKSTATION ID [id number] Impression Bibasilar atelectasis. Thank you for letting us participate in the care of this patient. If you are a health care provider and have any questions regarding this report, please contact the number below. For patients who have questions please contact the health healthcare management that requested your imaging first. Foot wwo Contrast Right (Exam End: 05/10/2024 5:51 AM) Result Value WORKSTATION ID [id number] Impression 1. Soft tissue irregularity of the [...] have questions please contact the health healthcare management that requested your imaging first. Retroperitoneal Complete (Exam End: 05/20/2024 10:36 AM) Result Value WORKSTATION ID [id number] Impression 1. Very limited exam secondary to [...] have questions, please contact the health healthcare management that requested your imaging first. Teofilo Ruiz, Staff Physician Electronically Signed Final Report 05/20/2024 11:36 am Pending Studies and Lab Data: Discharge Conditions/Prognosis: s/p Left 2nd toe amputation, recovering, requiring rehab. Back to baseline. Discharge to: [facility] Updated Allergies/ADRs: No Known Allergies Immunizations [...] 2:00 PM Lu Mcfarland APRN [facility] ID 5C [facility] 06/05/2024 4:00 PM Elkin Garcia MD [facility] ORTH 3C [facility] Your Discharge Medication List Your Medications New [...] as much as possible. Call your doctor ([phone]) if you develop: Fever greater than 100.5 Severe nausea or vomiting Increasing pain that is not controlled by pain medications Increasing redness, swelling, or drainage from incisions Change in sensation FOLLOW-UP APPOINTMENTS: 1. You will have follow-up appointments at [facility] as indicated below in Future Appointment and Orders. 2. You will need to have x-rays prior to your follow-up appointment listed below. Please come to Radiology, desk 3T, 1 hour BEFORE that appointment for these x-rays. Future Appointments Date Time Provider Department Center 06/03/2024 2:00 PM Lu Mcfarland APRN [facility] ID 5C [facility] 06/05/2024 4:00 PM Elkin Garcia MD [facility] ORTH 3C [facility] If you have questions or concerns: Sunday [...] the day after the procedure, use an wqsx-ila-uczjgyl spray to numb your throat. Sucking on [...] occurs, please contact your Doctor. Please call [phone] before 8pm Mon-Fri with problems, questions or concerns. If you call after 8pm or on weekends, call the Hospital at [phone] and ask to speak to the Director Of Adult Epilepsy general contractor and the shirt line operator will contact that person for you. When should you call for help? Call [phone] anytime you think you may need emergency [...] any problems. Where can you learn more? [facility] View your After Visit Summary and more online at [email or web address] If you would like to provide feedback about your hospital experience, please call the Office of Patient and Family Relations at . If you have received this After Visit Summary in error, please immediately return it in person to the department, or notify the [facility] Privacy Office by calling toll free at between the hours of 8AM and 5PM to arrange for our retrieval of the documents at no cost to you. Content Version: 12.2 ?? 4372-8633 [employer]. Care instructions adapted under license by [facility]. If you have questions about a medical condition or this instruction, always ask your healthcare professional. [employer] disclaims any warranty or liability for your [...] is during regular working hours, please call [phone]. If it is after 5 pm or a weekend or holiday, call [phone] and ask for the Tank Truck Engine Mechanic general contractor for Interventional Radiology. You have received medication [...] Mcfarland APRN Infectious Disease at [facility] Arrive at: Hose [facility]pling Jo[facility] Area 5C [phone] 06/05/2024 4:00 PM Elkin Garcia MD Orthopaedics at [facility] Arrive at: [facility] Area 3C [phone] Future Orders Complete By Expires OPAT: Order / Recommendation for Post Discharge IV Antibiotic Management [EMB504 CPT(R)] As directed Process Instructions: If no progress note charted, please enter Clinical details in comments. Scheduling Instructions: Comments: - If this order was signed greater than 72 hours prior to [facility] discharge, please call to confirm the accuracy of this order. Please Fax all results to: OPAT Program Infectious Disease Section [facility], [place] [address] FAX: - After hours, please contact the Infectious Disease Physician general contractor at . - Line care instructions - see flush/heparin orders. Facilities may follow organizational policies/practices regarding heparin. - custodial for medication administration/linen room supervisor and catheter care/maintenance authorized. HD Line [...] draw labs every Sunday fax results to [facility] at [phone]. Please draw labs off PICC line. Please see [facility] order for lab draw details. Please RN visit for IV ABX teaching and ongoing assessment. Group Home for Medication Administration/Hookup and catheter care/maintenance: - Teach Patient/Caregiver goals/self-monitoring/therapy administration to independence per the Nursing Care Plan. - custodial visit frequency; initial, weekly and 2 PRN [...] 05/20/2024 11:36 am) PATIENT INFO: ID #: [id number].: [id number] (69 yrs)(M) Name: JOSSY SHANKS Visit Date: 05/20/2024 10:34 am PERFORMED BY: Attending: Teofilo Ruiz MD Resident: Trinidad Light MD Performed By: Lulu Shin RDMS Referred By: SABA SPEARS Location: [place] SERVICE(S) PROVIDED: URETRO - Retroperitoneal Complete - [id number] INDICATIONS: CKD, increase BUN TECHNIQUE/SCAN QUALITY: Scan [...] whohave questions, please contact the health healthcare management that requested your imaging first. Teofilo Ruiz, Staff Physician Electronically Signed Final Report 05/20/2024 11:36 am My clinical question: Patient to establish for CKD management Do not type below here [id number]_CKD Questions: My question or request is: See comment Provider Contact Information: None None None Discharge References/Attachments Low Phosphorus Foods: General Info (Tajik) Low Potassium Foods: General Info (Tajik) documented in this encounter Discharge Instructions * [...] the day after the procedure, use an nrto-psm-lvqrbum spray to numb your throat. Sucking on [...] occurs, please contact your Doctor. Please call [phone] before 8pm Mon-Fri with problems, questions or concerns. If you call after 8pm or on weekends, call the Hospital at [phone] and ask to speak to the Director Of Adult Epilepsy general contractor and the shirt line operator will contact that person for you. [...] any problems. Where can you learn more? [facility] View your After Visit Summary and more online at [email or web address] If you would like to provide feedback about your hospital experience, please call the Office of Patient and Family Relations at . If you have received this After Visit Summary in error, please immediately return it in person to the department, or notify the [facility] Privacy Office by calling toll free at between the hours of 8AM and 5PM to arrange for our retrieval of the documents at no cost to you. Content Version: 12.2 ?? 6556-9055 [employer]. Care instructions adapted under license by [facility]. If you have questions about a medical condition or this instruction, always ask your healthcare professional. [employer] disclaims any warranty or liability for your [...] is during regular working hours, please call [phone]. If it is after 5 pm or a weekend or holiday, call [phone] and ask for the Tank Truck Engine Mechanic general contractor for Interventional Radiology. You have received medication [...] 2:00 PM Lu Mcfarland APRN [facility] ID 5C [facility] 06/05/2024 4:00 PM Elkin Garcia MD [facility] ORTH 3C [facility] Your Discharge Medication List Your Medications New [...] as much as possible. Call your doctor ([phone]) if you develop: Fever greater than 100.5 Severe nausea or vomiting Increasing pain that is not controlled by pain medications Increasing redness, swelling, or drainage from incisions Change in sensation FOLLOW-UP APPOINTMENTS: 1. You will have follow-up appointments at [facility] as indicated below in Future Appointment and Orders. 2. You will need to have x-rays prior to your follow-up appointment listed below. Please come to Radiology, desk 3T, 1 hour BEFORE that appointment for these x-rays. Future Appointments Date Time Provider Department Center 06/03/2024 2:00 PM Lu Mcfarland APRN [facility] ID 5C [facility] 06/05/2024 4:00 PM Elkin Garcai MD [facility] ORTH 3C [facility] If you have questions or concerns: Sunday through Sunday, 8 AM - 5 PM, please call Dr. Saba Spears MD's office at . If it is after 5 PM, the weekend, or holidays, please call and ask to speak with theOrthopedic resident on-call. * Attachments The following attachments cannot be sent through Care Everywhere. * Low Phosphorus Foods: General Info (Tajik) * Low Potassium Foods: General Info (Tajik) documented in this encounter Medications at Time [...] spent >30 minutes (Day of Discharge Code 14013) involved in the final examination of the patient, discussion of the hospital stay, instructions for continuing care to all relevant caregivers, and preparation of discharge records, prescriptions and referral forms. Plans Discharge to [facility] rehab Follow-up scheduled with ID, ortho, provider at [facility] Please see the Discharge Summary for complete details of any medication changes and additional plans. * Yg Jaffe - 05/23/2024 2:44 PM EDT Office of Care Management(OCM)/Tellers Supervisor(RS) Patient Name: Jossy Shanks : 1955 Patient has been offered a SNF bed at [phone]. [facility] arranged for a BLS transport at 1530. Ambulance will need: Medicare ambulance form completed and signed (MD or Marketing Underwriter) Copy of patient demographics [place] Out of Hospital DNR/DNI order, if active No MD to MD report necessary. Please call Nursing Report to , ask for internet marketing consultant. Info to accompany patient: Narcotic Prescriptions Copies of Medication Administration Records and IV sheets for past two weeks. Plan: Tellers Supervisor will be available to the patient and Marketing Underwriter for further assistance. Patient to discharge to: [facility] [address] [place] [address] Yg Jaffe Tellers Supervisor * Shirley Samuel RN - 05/23/2024 12:05 PM EDT Physician Certification Statement for Non-Emergency Ambulance Services Section I - General Information Jossy Shanks 1955 Medicare Number: n/a Transport Date: 05/23/2024 (PCS is valid for round trips on this date and for all repetitive trips in the 60-day range as noted below.) Origin: [facility] Destination: [facility] Is the patient's stay [...] van (i.e. seated during transport, without medical staff credentialing coordinator or monitoring?): No 4) In addition to [...] the Centers of Medicare and Medicaid Services ([facility]) to support the determination of medical [...] extremities. AAOx3 Labs: Labs personally reviewed in [facility] CBC: Recent Labs 05/23/24 0119 05/22/24 1118 [...] IMAGING: Reports and images personally reviewed in H. Images independently interpreted. IR Tunneled Central Venous [...] have questions, please contact the health healthcare management that requested your imaging first. Teofilo Ruiz, [...] have questions please contact the health healthcare management that requested your imaging first. Chest One View Final Result Bibasilar atelectasis. Thank you for letting us participate in the care of this patient. If you are a health care provider and have any questions regarding this report, please contact the number below. For patients who have questions please contact the health healthcare management that requested your imaging first. SCOPY: Reports [...] as documented. Tl Steele MD [facility] Gastroenterology * Irene Bravo RN - 05/22/2024 [...] Zhao RN - 05/22/2024 12:47 PM EDT Buffet Runner spoke with JACKIE Nuñez from Endo regarding [...] kg/m?? I/O last 3 completed shifts: In: 184 [P.O.:184] Out: 4725 [Urine:4725] CBC Lab Results [...] Galvan MD - 05/22/2024 6:57 AM EDT [facility] Medicine - Red Team Inpatient [...] with PT - hoping to go to [facility] today Meds: pantoprazole 40 mg Intravenous BID [...] 2.78* GLUCOSE 121 151 173 Recent Labs 05/22/2418 05/21/24 0458 05/20/24 0427 CALCIUM 9.4 9.4 9.4 [...] upcoming EGD, and availability of bed at [facility]. -ordered T&S in case continues [...] Medicine Hospital Medicine Red Team - Pager [phone] Associated attestation - Saba Spears MD - [...] will transfuse and monitor response. Dispo to [facility] for rehab pending Hgb stability and EGD. I have examined the patient myself and personally reviewed all studies. In addition, I certify thatI am a D-H credentialed attending provider with admitting privileges and that the patient meets or has met medical necessity to require an inpatient IPI level of care meeting a minimum of two midnights or is on the [facility] inpatient only procedure list (status C) due to: OM requiring IV abx * Lazaro Aaron, IMAGING NURSE - 05/21/2024 4:05 PM EDT Physical Therapy [...] discharge to swing bed rehab facility vs usp facility once medically ready for hospital discharge. Pt will continue to benefit from skilled physical therapy while in the hospital in order to maximize independence and safety with functional mobility and achieve therapeutic goals. Discharge Recommendations: Based on current findings- swing bed rehabilitation facility, usp facility Discharge recommendation is based on the [...] with stable vital signs. Total Time: 34 (8498-5664) minutes. TAx2 Lazaro Aaron PTA Pager: [phone] Physical Therapy Inpatient Rehabilitation Department * Penny [...] - no bm ovn, but prev were naye Vaz. Social History: Patient lives alone in apartment. [...] insight into deficits Vision: corrective lenses time signal wirer Endurance: decreased activity tolerance Vitals: Stable on [...] with activities of daily living. Discharge Recommendation: usp facility, swing bed rehabilitation facility Equipment Recommendations: [...] 2-3 times/wk Total Minutes, Occupational Therapy: 40 ([facility] x3 ([phone])) Pager: [phone] Penny Rodriguez OT Occupational Therapy Rehabilitation Department [...] of : 1955 AGE: 69 y.o. Address: [address] [place] [phone] (home) Mobile: Telephone Information: Referring Provider: Anna [...] Galvan MD - 05/21/2024 6:30 AM EDT [facility] Medicine - Red Team Inpatient [...] Medicine Hospital Medicine Red Team - Pager [phone] Associated attestation - Saba Spears MD - [...] mid 7s. Appreciate GI consult. Dispo to [facility] pending Hgb and EGD. I have examined the patient myself and personally reviewed all studies. In addition, I certify thatI am a D-H credentialed attending provider with admitting privileges and that the patient meets or has met medical necessity to require an inpatient IPI level of care meeting a minimum of two midnights or is on the [facility] inpatient only procedure list (status C) [...] Galvan MD - 05/20/2024 6:20 AM EDT [facility] Medicine - Red Team Inpatient [...] Pip-tazo and vanc c/w CTX Planning for [facility] central line, instead of PICC Has offloading [...] Mihaela Galvan MD 05/20/2024 PGY-3, Internal Medicine [facility] Medicine Red Team - Pager [phone] Associated attestation - Saba Spears MD - [...] of two midnights or is on the [facility] inpatient only procedure list (status C) [...] discharge to swing bed rehab facility vs usp facility once medically ready for hospital discharge. Pt will continue to benefit from skilled physical therapy while in the hospital in order to maximize independence and safety with functional mobility and achieve therapeutic goals. Discharge Recommendations: Based on current findings- swing bed rehabilitation facility, usp facility Discharge recommendation is based on the [...] Ho PT, Doctor of Physical Therapy Pager: [phone] Physical Therapy Inpatient Rehabilitation Department * Rebeca [...] insight into deficits Vision: corrective lenses time signal wirer Endurance: decreased activity tolerance Vitals: Stable on [...] with activities of daily living. Discharge Recommendation: usp facility, swing bed rehabilitation facility Equipment Recommendations: [...] times/wk Total Minutes, Occupational Therapy: 47 Pager: [phone] Rebeca Moeller OT Occupational Therapy Rehabilitation Department * Mihaela Galvan MD - 05/19/2024 6:43 AM EDT [facility] Medicine - Red Team Inpatient [...] Mihaela Galvan MD 05/19/2024 PGY-3, Internal Medicine [facility] Medicine Red Team - Pager [phone] Associated attestation - Saba Spears MD - [...] for a hospital day 9 nutrition evaluation. Buffet Runner met with pt at bedside. Pt saidhe [...] unless consulted in the interim. Julissa Weathers Inspector Multifocal Lens * Mihaela Galvan MD - 05/18/2024 7:20 AM EDT [facility] Medicine - Red Team Inpatient [...] Medicine Hospital Medicine Red Team - Pager [phone] Associated attestation - Saba Spears MD - [...] Harrison MD - 05/17/2024 6:28 AM EDT [facility] Medicine Red Team Inpatient Progress Note [...] Recent Labs 05/17/24 0549 05/16/24 0514 05/15/24 05 NA 134* 133* 135 K 5.0 5.0 5.2* CL 103 101 100 CO2 21* 21* 23 BUN 86* 74* 58* CREATININE 3.07* 2.88* 2.46* GLUCOSE 131 154 217* Recent Labs 05/17/24 0549 05/16/2414 05/15/24 0512 CALCIUM 8.7 8.8 8.8 MAGNESIUM [...] prerenal FISH Resumed home dose 25 BID 7/30, tolerating well Home statin diltiazem IR 60 mg QID resuming Xarelto # Diet: Low Phos and Carb Control diet 60/60/75 CHO counting level 2 # DVT prophylaxis:Heparin, holding for pre-op # Fluids: NA # Access: 2IV in place # Dispo: pending clinical improvement # Code: Full Code Juan José Harrison MD 05/17/2024 PGY-3, Internal Medicine [facility] Medicine Red Team - Pager [phone] Associated attestation - Saba Spears MD - [...] 6.64) performed by Elkin Garcia MD at [facility] Active Non-Hospital Problems Diagnosis Degenerative [...] [place] PT, Doctor of Physical Therapy Pager: [phone] Physical Therapy Inpatient Rehabilitation Department * Emmanuel [...] - Date/Time MRSA PCR Screen ([facility]/APD/[facility]) [[id number]] Collected: 05/15/24 1615 Lab Status: Final result Specimen: Nasopharyngeal Swab Updated: 05/15/242012 MRSA Result Negative MRSA Interp -- Methicillin-resistant Staphylococcus aureus (MRSA) is NOT DETECTED The MRSA target DNA sequences (mec and SCC) were not detected within the acceptable ranges using the Xpert MRSA NxG on the GeneXpert Dx System ([employer]). This suggests the absence of MRSA in the patient specimen submitted for testing. This test is cleared by the U.S. Food and Drug Administration for clinical use and its performance characteristics have been verified by the [employer] Laboratory at [facility]. This result does not rule out the presence of any other organisms. Rare false negative results may occur if MRSA is present at low concentrations with much higher concentrations of other organisms including MRSE or S. aureus with an empty SCC cassette. Comment: [VERIFIED DATE]05.15.24 Verified By:Lupe Jensen (Electronic Signature) Tissue Culture, Aerobic & Anaerobic Toe [[id number]] (Abnormal) Collected: 05/14/24 1133 Lab Status: Preliminary result Specimen: Toe Updated: 05/15/24 1212 Tissue culture [[id number]] (Abnormal) Collected: 05/14/24 1133 Lab Status: Preliminary result Specimen: Toe Updated: 05/15/24 1212 Tissue Culture No growth to date. Gram Stain -- Few Neutrophils seen Rare Gram Positive Cocci in pairs seen Results called to and read back by Dr. Mihaela Galvan 05/14/24 14:57:00 Organism Gram Positive Cocci in pairs Anaerobic Culture [[id number]] Collected: 05/14/24 1133 Lab Status: Preliminary result Specimen: Toe Updated: 05/15/24 1124 Anaerobic Culture No anaerobic organisms isolated to date Blood culture [[id number]] Collected: 05/10/24 0232 Lab Status: Final result Specimen: Blood from Hand, Right Updated: 05/15/24 0701 Blood Culture No growth at 5 days. Skin/Superficial Wound Culture Toe [[id number]] (Abnormal) Collected: 05/10/24 0256 Lab Status: Final [...] follow. Please page ID Red team (pager [phone]) with questions or concerns. Emmanuel Corey, DO Internal Medicine PGY-2 Pager: [phone] Epic Chat 05/16/2024 Associated attestation - Rodriguez [...] from the original note were not included. [facility] Medicine - Red Team Inpatient [...] - Date/Time MRSA PCR Screen ([facility]CG[facility]/APD/[place]) [[id number]] Collected: 05/15/24 1615 Lab Status: Final result Specimen: Nasopharyngeal Swab Updated: 05/15/242012 MRSA Result Negative MRSA Interp -- Methicillin-resistant Staphylococcus aureus (MRSA) is NOT DETECTED The MRSA target DNA sequences (mec and SCC) were not detected within the acceptable ranges using the Xpert MRSA NxG on the GeneXpert Dx System ([employer]). This suggests the absence of MRSA in the patient specimen submitted for testing. This test is cleared by the U.S. Food and Drug Administration for clinical use and its performance characteristics have been verified by the [facility] at [facility]. This result does not rule out the presence of any other organisms. Rare false negative results may occur if MRSA is present at low concentrations with much higher concentrations of other organisms including MRSE or S. aureus with an empty SCC cassette. Comment: [VERIFIED DATE]05.15.24 Verified By:Lupe Jensen (Electronic Signature) Tissue Culture, Aerobic & Anaerobic Toe [[id number]] (Abnormal) Collected: 05/14/24 1133 Lab Status: Preliminary result Specimen: Toe Updated: 05/15/24 1212 Tissue culture [[id number]] (Abnormal) Collected: 05/14/24 113 Lab Status: Preliminary result Specimen: Toe Updated: 05/15/24 1212 Tissue Culture No growth to date. Gram Stain -- Few Neutrophils seen Rare Gram Positive Cocci in pairs seen Results called to and read back by Dr. Mihaela Galvan 05/14/24 14:57:00 Organism Gram Positive Cocci in pairs Anaerobic Culture [[id number]] Collected: 05/14/24 1133 Lab Status: Preliminary result Specimen: Toe Updated: 05/15/24 1124 Anaerobic Culture No anaerobic organisms isolated to date Blood culture [[id number]] Collected: 05/10/24 0232 Lab Status: Final result Specimen: Blood from Hand, Right Updated: 05/15/24 0701 Blood Culture No growth at 5 days. Skin/Superficial Wound Culture Toe [[id number]] (Abnormal) Collected: 05/10/24 0256 Lab Status: Final [...] PGY-1, Internal Medicine Red Team - Pager [phone] Associated attestation - Treva Diaz MD - [...] of two midnights or is on the [facility] inpatient only procedure list (status C) [...] likely suture removal on 06/05/24. Please page [phone] with any questions or concerns. Activity: NWB until forefoot offloading shoe DVT prophylaxis: per primary, rec 30 days LVX or ASA81 BID Closure: Sutures (to be removed at Orthopaedic follow-up appointment) Dressing: bacitracin, xeroform, 4x4, kerlix, DEREK x 7 days Antibiotics: per primary Isra Rodriguez IV, DO 05/16/2024 Future Appointments Date Time Provider Department Center 06/05/2024 4:00 PM Elkin Garcia MD [facility]TH [facility] * Mihaela Galvan MD - 05/15/2024 6:41 AM EDT Images from the original note were not included. [facility] Medicine - Red Team Inpatient [...] [phone] Recent Labs 05/15/24 0505/14/24 0501 05/13/24 0529 NA 135 137 137 [...] Procedure Component Value - Date/Time Tissue culture [[id number]] (Abnormal) Collected: 05/14/24 1133 Lab Status: Preliminary result Specimen: Toe Updated: 05/14/24 1459 Gram Stain -- Few Neutrophils seen Rare Gram Positive Cocci in pairs seen Results called to and read back by Dr. Mihaela Galvan 05/14/24 14:57:00 Organism Gram Positive Cocci in pairs Blood culture [[id number]] Collected: 05/10/24 0232 Lab Status: Preliminary result Specimen: Blood from Hand, Right Updated: 05/14/24 0701 Blood Culture No growth at 4 days. Skin/Superficial Wound Culture Toe [[id number]] (Abnormal) Collected: 05/10/24 0256 Lab Status: Final [...] PGY-1, Internal Medicine Red Team - Pager [phone] Associated attestation - Treva Diaz MD - [...] of two midnights or is on the [facility] inpatient only procedure list (status C) [...] 4:00 PM Elkin Garcia MD [facility] * Savannah Sy RN - 05/14/2024 1:45 [...] 4:00 PM Elkin Garcia MD [facility] * Mihaela Galvan MD - 05/14/2024 6:04 AM EDT [facility] Medicine - Red Team Inpatient [...] PGY-1, Internal Medicine Red Team - Pager [phone] Associated attestation - Treva Diaz MD - [...] OR for the above procedure. Please page [phone] if there are any concerns regarding OR [...] Galvan MD - 05/13/2024 6:28 AM EDT [facility] Medicine - Red Team Inpatient [...] 32.5* PLATELET 186 165 141* Recent Labs 05/13/2452805/12/2444405/11/24 0200 NA 137 135 136 K 4.4 [...] PGY-1, Internal Medicine Red Team - Pager [phone] Associated attestation - Treva Diaz MD - [...] of two midnights or is on the [facility] inpatient only procedure list (status C) due to: RLE cellulitis with concern forosteomyelitis. Continue on iv antibiotics and follow up with orthopedics regarding any surgical debridement . * Sarwat Marti - 05/12/2024 2:20 PM EDT Building Cleaning Supervisor Encounter Note Patient Name: Jossy Shanks : [id number] MR#: [id number] Admit Date: 05/10/2024 2:12 AM Hospital Day 2 days Narrative:Visited to introduce and assess acceptance of Building Cleaning Supervisor services. Patient was sleeping and I will visit an other time. Assessment: Intervention and Outcome: Follow-up: Time in Direct Care: Sarwat Marti 05/12/2024 * Mihaela Galvan MD - 05/12/2024 6:36 AM EDT [facility] Medicine - Red Team Inpatient [...] 4.7 5.0 CL 101 100 93* CO2 BUN 72* 72* 69* CREATININE 2.03* 2.58* [...] PGY-1, Internal Medicine Red Team - Pager [phone] Associated attestation - Treva Diaz MD - [...] of two midnights or is on the [facility] inpatient only procedure list (status C) due to: RLE cellulitis with concern forosteomyelitis. Continue on iv antibiotics and discuss with orthopedics regarding any urgent need for surgical debridement. * Rodriguez Tian MD - 05/11/2024 10:23 AM EDT MEDICINE PAGER [phone] - [facility] Daily Progress Note Admit Date: 05/10/2024 Encounter [...] (Xarelto, dilt, coreg), admitted to [facility] on 05/10/2024 with LE cellulitis 2/2 right [...] CHO counting level 2 Last BM documented: (IMAGING NURSE) DVT Prophylaxis: Heparin DOAC Code Status: Attempt [...] of two midnights or is on the [facility] inpatient only procedure list (status C) [...] presented to a local emergency [facility] yesterday (qcw8ha birthday) due to ongoing wound issues and [...] minimumof two midnights or is on the [facility] inpatient only procedure list (status C) [...] on Lasix, HTN on Losartan,who presented to [facility] for rt LE cellulitis, transferred to [facility] for septic shock. Interval Events: - lactate [...] 05/10/2024 2:37 AM) Result Value WORKSTATION ID [id number] Impression Bibasilar atelectasis. Thank you for letting us participate in the care of this patient. If you are a health care provider and have any questions regarding this report, please contact the number below. For patients who have questions please contact the health healthcare management that requested your imaging first. foot pending [...] hospital medicine if remains off pressors Graciela Glil MD PGY1 * Jayden Thomas MD - 05/10/2024 2:56 AM EDT [facility] TeleICU Initial Assessment Note I established audio/visual [...] whole blood, send to lab ([facility]/P) Result Value Lactate WB 2.3 (H) Prothrombin [...] clinical appearance is worrisome -Awaiting [facility] admission K+ level and Chem 7 -Would [...] -- -- -- 97 % -- -- 08/08/24 1159 36 ??C (96.8 ??F) 54 bpm [...] indication: Osteomyelitis, central venous access required for penitentiary antibiotic use IR workflow: Procedure request received through Interventional Radiology eDH order queue. There are no answered order specific questions. History of Present Illness: Per chart review, Jossy Shanks is a 69 y.o. male with PMH of CKD, DM,COPD, A.fib, admitted for RLE cellulitis and osteomyelitis s/p 2ng toe amputation requiring termination clerk IV antibiotic administration who presents to Interventional [...] IR History: None listed at [facility] Anticoagulation/Antiplatelet: None listed Labs: Lab Results Component [...] Assessment: 69 y.o. male with OM requiring termination clerk IV ABX presenting to Interventional Radiology for [...] 6.64) performed by Elkin Garcia MD at [facility] MAIN OR Social History and Habits: Social [...] indication: Osteomyelitis, central venous access required for penitentiary antibiotic use IR workflow: Procedure request received through Interventional Radiology eDH order queue. There are no answered order specific questions. History of Present Illness: Per chart review, Jossy Shanks is a 69 y.o. male with PMH of CKD, DM,COPD, A.fib, admitted for RLE cellulitis and osteomyelitis s/p 2ng toe amputation requiring termination clerk IV antibiotic administration who presents to Interventional [...] IR History: None listed at [facility] Anticoagulation/Antiplatelet: None listed Labs: Lab Results Component [...] Assessment: 69 y.o. male with OM requiring penitentiary IV ABX presenting to Interventional Radiology for [...] 6.64) performed by Elkin Garcia MD at [facility] MAIN OR Social History and Habits: Social [...] amputation. Isra Rodriguez IV, DO Orthopaedic Surgery [facility] * Carlotta Davis MD - 05/10/2024 5:48 [...] oxygen, HFpEF, HTN, admitted to [facility] on 05/10/2024, now on Hospital Day #0, for RLE cellulitis SUBJECTIVE History of Present Illness: Per admitting provider Jossy Shanks is a 69 y.o. year old male with PMH significant for IDDM, Afib rate controlled, CKD (bsl cr 1.5), COPD not on home oxygen, HFpEF, HTN who presented to [facility] for rt LE cellulitis, transferred to [facility] for RLE cellulitis after trauma to his [...] knee. Fevers & chills for last 24hrs. Leonidas lightheaded, weak, & couldn't get out of [...] OSH departure. On arrival to [facility]: HR 96, o2 sat mid 90s on [...] limbs -chronic Motor Exam: Upper Limb Bilateral: Estate Administrator Strength 5/5 Wrist Flexion/Extension 5/5 Elbow Flexion/Extension [...] in the last 7068 hours. Invalid input(s): [id number] Recent Labs 05/10/24219 HA1C 5.9* Lipids: Heme: No results for input(s): LDH, HAPTOGLOBIN, URICACID in the last 168 hours. ABG (Arterial Blood Gas): No results found for: PHART, PO2ART, NKY1VBI, DHU1LBF VBG (Venous Blood Gas): No results for input(s): PHVEN, HZD7XYA, PO2VEN, UXG6IES, BEVEN, KGM8HHZ in the last 72hours. EKG: No results [...] 05/10/2024 2:37 AM) Result Value WORKSTATION ID [id number] Impression Bibasilar atelectasis. Thank you for letting us participate in the care of this patient. If you are a health care provider and have any questions regarding this report, please contact the number below. For patients who have questions please contact the health healthcare management that requested your imaging first. Foot wwo Contrast Right (Exam End: 05/10/2024 5:51 AM) Result Value WORKSTATION ID [id number] Impression 1. Soft tissue irregularity of the [...] have questions please contact the health healthcare management that requested your imaging first. Medications: Scheduled: [...] (Xarelto, dilt, coreg), admitted to [facility] on 05/10/2024, now on Hospital Day #0, [...] Internal Medicine PGY2 Medicine Team: Rigo, Pager #[phone] Associated attestation - Treva Diaz MD - [...] home oxygen, HFpEF, HTN who presented to [facility] for rt LE cellulitis, transferred to [facility] for septic shock. Reports end of March [...] knee. Fevers & chills for last 24hrs. Leonidas lightheaded, weak, & couldn't get out of [...] OSH departure. On arrival to [facility]: HR 96, o2 sat mid 90s on [...] mobilizes w/out assistance. Darion Morgan is DPOA; [phone] Physical Exam: Vitals: Last value Range last [...] Anita Camacho MD Internal Medicine, PGY2 05/10/2024 [facility] Pager #[phone] documented in this encounter Procedure Notes * Juan José Flowers MD - 05/21/2024 11:49 AM EDT IR PROCEDURE NOTE Procedure: Tunneled central venous catheter placement. Indication for Procedure: Per Allyn MIMS, Jossy Shanks is a 69 y.o. male with PMH of CKD, DM, COPD, A.fib, admitted for RLE cellulitis andosteomyelitis s/p 2ng toe amputation requiring penitentiary IV antibiotic administration who presents to Interventional [...] Patient is medically ready for discharge to [facility]. Needs for Transition of Care: Plan for discharge is: Group Home Facility / Swing OPAT Orders: ID Consult Ordered Agency Referrals & Follow-up Care: Contact information for follow-up [facility] [address] [place] [address] Transportation: family or friend will provide Wheelchair [...] through: Primary Insurance: AARP MANAGED MEDICARE Payor: AAR MANAGED MEDICARE / Plan: [facility] / Product Type: *No Product type* / Secondary Insurance: N/A Prescription Coverage: Yes This plan was formulated with input from patient and team. All are in agreement with plan. Shirley Samuel RN CM Rag Washer- Medicine Office of Care Management Ext: [phone] Pager: [phone] * Plan of Care - Juan José [...] Control Flowsheets (Taken 05/20/2024 1252 by Evelyn Prakash RN) Glycemic Management: blood glucose monitored insulin [...] Infection Flowsheets (Taken 05/20/2024 08 by Evelyn Prakash RN) Fever Reduction/Comfort Measures: lightweight clothing lightweight [...] and were able to stop the bleeding. Buffet Runner carolyn a hemoglobin when patient got back [...] Operative Note Patient Name: Jossy Shanks : [id number] MR#: [id number] Case Date: 05/22/2024 Surgeon: Surgeons and Role: [...] Access Non-Dialysis 05/21/2024 Juan José Flowers MD [facility] INTERVENTIONL RAD PRO AMPUTATION METATARSAL+TOE, SINGLE Right 05/14/2024 AMPUTATION, TRANSMETATARSAL TOE, ONE TOE (WRVU 6.64) performed by Elkin Garcia MD at [facility] MAIN OR SOCIAL HX: Social History Socioeconomic [...] SpO2 SpO2: [93 %-100 %] IO 05/20 0701 - 05/21 0700 In: 1777 [P.O.:1742; I.V.:35] Out: 2725 [Urine:2725] [...] IMAGING: Reports and images personally reviewed in [facility]. Images independently interpreted. IR Tunneled Central Venous [...] have questions, please contact the health healthcare management that requested your imaging first. Teofilo Ruiz, [...] have questions please contact the health healthcare management that requested your imaging first. Chest One View Final Result Bibasilar atelectasis. Thank you for letting us participate in the care of this patient. If you are a health care provider and have any questions regarding this report, please contact the number below. For patients who have questions please contact the health healthcare management that requested your imaging first. SCOPY: Reports [...] significant anemia. Tl Steele MD [facility] Gastroenterology * Plan of Care - Pretty [...] new fluid restriction, patient verbalized understanding. LBM 8/6. Frequent checks, safety maintained, please see flowsheet [...] Pain Flowsheets (Taken 05/20/2024802) Pain Management Interventions: djxwbs-vve-iozno dosing utilized breathing exercises care clustered diversional [...] MEDICARE Payor: AARP MANAGED MEDICARE / Plan: [employer] MANAGED MEDICARE COMPLETE / Product Type: *No Product type* / Secondary Insurance: N/A Last Physical Therapy Recommendation: swing bed rehabilitation facility, usp facility with to be determined Last Occupational Therapy Recommendation: usp facility, swing bed rehabilitation facility with to [...] discharge planning needs. provide the [facility], Office of Care Management letter from the [employer] Transportation Worker pertaining to rehab referrals. provide a letter describing our affiliations within the [facility] and educate about their right to choose where referrals are sent. provide the CMS Star Quality Rating handout. review the different levels of rehab including SNF, swing, and acute. provide a list of facilities within their preferred geographic area. request that they provide at least three choices for referral. They have requested referrals to: [facility] [address] [place] [address] [facility] [address] [place] [address] -OFFERED BED, PENDING INSURANCE AUTHORIZATION 05/20 1308 [facility] [address] [place] [address] [facility] [address] [place] [address] [facility] [address] [place] [address] (Accepts pts only after exhausting all other local SNF options) Does patient have COVID vaccine card: Yes; Copy obtained: No Note routed to a Tellers Supervisor who will communicate referrals to facilities and provide any required information. Transportation: family or friend will provide Barriers to discharge: Discharge planning Plan going forward: Referrals routed for SNF/Swing. Care Management will continue to follow and assist with discharge planning and coordination of care as indicated. Anticipated Date of Discharge: 05/21/2024 Shirley Samuel RN CM Rag Washer- Medicine Office of Care Management Ext: [phone] Pager: [phone] * Plan of Care - Pretty Ramirez [...] ADLs]: Eyes on Surveillance [continuous indirect monitoring]: Massteveo Patient-specific fall prevention interventions for sensory deficits [...] shock at his time of transfer to [facility]. Creatinine on admission was 3.94 mg/dL, he [...] 6.64) performed by Elkin Garcia MD at [facility] MAIN OR insulin glargine-ygfn (Semglee) (100 unit/mL) [...] Flowsheets (Taken 05/18/2024 0838) Pain Management Interventions: meaexa-dtm-ednqk dosing utilized care clustered diversional activity provided [...] television Taken 05/15/2024 1825 Pain Management Interventions: fzuwey-xxh-hzhyv dosing utilized position adjusted pillow support provided [...] and Manage Fall Risk Flowsheets (Taken 05/16/2024 9058) Safety Promotion/Fall Prevention: activity supervised clutter free [...] disinfected environmental surveillance performed rest/sleep promoted Taken 05/15/2024736 Infection Management: aseptic technique maintained Intervention: Promote [...] smartphone Taken 05/15/2024 1825 Pain Management Interventions: soyalp-gre-hnugk dosing utilized position adjusted pillow support provided [...] 6.64) performed by Elkin Garcia MD at [facility] MAIN OR Active Non-Hospital Problems Diagnosis Degenerative [...] WNL / WFL and corrective lenses time signal wirer Communication: WFL Range of motion, strength, coordination: [...] planning. Total Minutes, Occupational Therapy: 90 (evaluation ([id number])) 2017 OT Evaluation Code Rationale: Diagnosis & [...] and measurable assessment of functional outcome. Pager: [phone] Penny Rodriguez OT 05/16/2024 Occupational Therapy Rehabilitation [...] have. Alternately, during off-hours you may call [phone] to contact a pharmacist. * Consult Note - Ronni Beckham, RN - 05/16/2024 9:20 AM EDT During [...] Signs and Symptoms 05/15/20241128 by Evelyn Prakash, JACKIE Outcome: Ongoing [...] Fall and Fall-Related Injury 05/15/20241128 by Evelyn Prakash, JACKIE Outcome: Ongoing [...] (Extremity Amputation) Goal: Absence of Bleeding 05/15/2024 112 by Evelyn Prakash RN Outcome: Ongoing (Interventions Implemented as Appropriate) 05/15/2024 1128 by Evelyn Prakash RN Outcome: Ongoing (Interventions Implemented as Appropriate) Intervention: Monitor and Manage Bleeding Flowsheets (Taken 05/15/2024 1129) Bleeding Management: dressing monitored Problem: Infection (Extremity Amputation) Goal: Absence of Infection Signs and Symptoms 05/15/2024 112 by Evelyn Prakash RN Outcome: Ongoing (Interventions Implemented as Appropriate) 05/15/2024 1128 by Evelyn Prakash RN Outcome: Ongoing (Interventions Implemented as Appropriate) Intervention: Prevent or Manage Infection Flowsheets (Taken 05/15/2024 0737) Infection Management: aseptic technique maintained Problem: Pain (Extremity Amputation) Goal: Acceptable Pain Control 05/15/20241128 by Evelyn Prakash, JACKIE Outcome: Ongoing [...] vasopressors, and then transferred to [facility] for further management. 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 05/14. Reports a hx of cellulitis in the Left leg back in 2009 for which he states he did a course of 6 week son IV abx from [facility]. Has gotten cellulitis about half a dozen [...] Procedure Component Value - Date/Time Blood culture [[id number]] Collected: 05/10/24 0232 Lab Status: Final result Specimen: Blood from Hand, Right Updated: 05/15/24 0701 Blood Culture No growth at 5 days. Tissue culture [[id number]] (Abnormal) Collected: 05/14/24 1133 Lab Status: Preliminary result Specimen: Toe Updated: 05/14/24 1459 Gram Stain -- Few Neutrophils seen Rare Gram Positive Cocci in pairs seen Results called to and read back by Dr. Mihaela Galvan 05/14/24 14:57:00 Organism Gram Positive Cocci in pairs Skin/Superficial Wound Culture Toe [[id number]] (Abnormal) Collected: 05/10/24 0256 Lab Status: Final [...] follow. Please page ID Red team (pager [phone]) with questions or concerns. Emmanuel Corey, DO Internal Medicine PGY-2 Pager: [phone] Epic Chat 05/15/2024 Associated attestation - Rodriguez [...] MEDICARE Payor: AARP MANAGED MEDICARE / Plan: [employer] MANAGED MEDICARE COMPLETE / Product Type: *No Product type* / Secondary Insurance: N/A Last Physical Therapy Recommendation: with Last Occupational Therapy Recommendation: with Plan for discharge is: Home w/ Services Outpatient Agency/Support Group Needs: Homecare agency OPAT Orders: ID Consult Ordered Location: Home Home Health Services: IV Therapy Agency Referrals: [place] [address] or Home Care Orders: 1. IV Antibiotics: [...] discharge: Discharge planning Plan going forward: Barbie TSANG routed and pended. SAHARA routed. Care Management will continue to follow and assist with discharge planning and coordination of care as indicated. Anticipated Date of Discharge: 05/19/2024 Shirley Samuel RN CM Rag Washer- Medicine Office of Care Management Ext: [phone] Pager: [phone] * Plan of Care - Yg Christine Broussard RN - 05/15/2024 6:07 AM EDT Pt [...] dosing with meals. POC BG rechecked @ 210 w/ result of 257. Dr Alvarez notified [...] Operative Note Patient Name: Jossy Shanks : [id number] MR#: [id number] Case Date: 05/14/2024 Surgeon: Surgeons and Role: [...] - 05/14/2024 11:16 AM EDT [facility] [place] Note Patient Name: Jossy Shanks : [id number] MR#: [id number] Case Date: 05/14/2024 Surgeon: Surgeons and Role: [...] can weight-bear as tolerated and heel off dry kiln loader We will follow his wounds while he is here in the hospital. Surgical Infection Prevention Bundle Used? N/A Attestation: Case Date: 05/14/2024 I was present and I participated during the entire procedure (does not need to include opening and closing). Elkin Garcia MD 05/14/2024 * Consult Note - Hakeem Villa, [facility] - 05/14/2024 7:15 AM EDT [facility] Pharmacokinetics Note Drug: Vancomycin Pharmacokinetic target: AUC24 (range) 400-600 mg/L.hr Jossy Shanks is a 69-year-old male receiving intermittent Vancomycin doses Recent measured serum creatinine values: 05/14/2024 05:01 1.56 mg/dL 05/13/2024 05:29 1.53 mg/dL 05/12/2024 04:45 2.03 mg/dL Assessment: Analysis of the most recent level(s) using OpenTrust gives the following patient-specific pharmacokinetic parameters: CL: [...] Implemented as Appropriate) 05/14/2024 045 by Pretty Ramirez, JACKIE Outcome: Ongoing (Interventions Implemented as Appropriate) Problem: Infection Progression (Sepsis) Goal: Absence of Infection Signs and Symptoms 05/14/2024 0456 by Pretty Ramirez RN Outcome: Ongoing (Interventions Implemented as Appropriate) 05/14/2024 0455 by Pretty Ramirez RN Outcome: Ongoing (Interventions Implemented as Appropriate) Problem: Fall Injury Risk Goal: Absence of Fall and Fall-Related Injury 05/14/2024 045 by Pretty Ramirez RN Outcome: [...] (Xarelto, dilt, coreg), admitted [place] [facility] [place] 05/10/2024 with LE cellulitis 2/2 right foot trauma. Reason for intervention: Diet order question - what type of carb control diet does pt need? Nutrition Recommendations: Carb control level 3 diet Monitor po intake Monitor blood glucose levels Monitor weight trends I was able to discuss plan with provider Medicine Pager Red [phone] . Nutrition consult received regarding what type of carb control diet pt needs. Estimated nutrition needs based on ideal body weight of 89kg: Calories: 4709-5039 calories (20-25kcal/kg) Protein: 89-107g (1-1.2g/kg) Nutrition to [...] border dressing. (Melgisorb Ag 6x6 PS # [id number]) (Melgisorb Ag 4x4 PS # [id number]) Sacrum/ischium: open to air, utilize Z-guard if patient begins to have breakdown Supplies left at the bedside: 1 sheet of Melgisorb Ag, wound cleanser Wound Care will complete the consult at this time. If there are further issues please re-consult via eD-H. Discussed plan with: RN: Don Please contact Keeley Russell RN on eDH secure chat or the wound care team on pager [phone] with skin and wound care concerns or [...] surrogate would be surrogate decision maker per [place] surrogate decision making law. (Only good for 180 days) Son CONRADO Any patient receiving care in [place] must abide by [place] law. The hierarchy for surrogate decision making [...] (i) The agent with financial power of marketing sales representative or a conservator appointed in accordance with [...] Current DME: none Home Address listed as: [address] [place] [id number] Pt is not currently residing here. Current address is as below: [facility] [address], [place] [id number] Social & Family Supports: All names listed below confirmed with patient as current and correct Extended Emergency Contact Information Primary Emergency Contact: RimmaEddie Mobile Relation: Son/Gqmkajmv-qw-hwm Secondary Emergency Contact: Gifty Bucio [facility] Relation: Mother Current Care Provided by: self [...] Pertinent/Service Specific Information: Health/Prescription Coverage: Primary Insurance: [employer] OOS Payor: [employer] OOS / Plan: [facility] NATIONAL OOS PPO / Product Type: *No Product type* / Secondary Insurance: N/A ; Prescription Coverage: Yes Preferred Pharmacy: [id number] - [place], [place] - [address] [place] [address] AT [address] [facility] [address] [place] [id number] Primary Care Provider listed: None None Pt does have PCP in [facility] Patient/Caregiver Goals of Treatment: Potential Needs for Transition of Care: none, home health care Agency Referrals: I have met with the patient to: discuss discharge planning needs. provide the [facility], Office of Care Management letter from the [employer] Worker pertaining to rehab referrals. provide a letter describing our affiliations within the [facility] and educate about their right to choose where referrals are sent. provide a list of Home Health Agencies / Durable Medical Equipment vendors which serve their preferred geographic area. provided patient with [facility] Star Quality Rating handout. They have requested referrals to: [facility] [address] [place] [address] Note routed to a [employer] Supervisor who will communicate referrals to facilities and [...] wait list for housing (an apartment) in [place], [place]; ETA for move-in is 4-8weeks. He does not feel that his local family members would be able to house him in the interim andexpresses that he is comfortable in his camper, which has amenities. He is fully independent at baseline but has used [facility] in the past; a referral will be [...] Clinical Pharmacist Note - VancFD Jossy Shanks [id number] Jossy Shanks is a 69 y.o. [...] Alternately, during off-hours (9p-7a) you may call [phone] to contact a pharmacist. Rodriguez Sinclair RPH [...] intact shoulder abduction, elbow flexion/extension, wrist flexion/extension, vegetable grower, EPL, AIN, IO Brisk capillary refill distally [...] intact shoulder abduction, elbow flexion/extension, wrist flexion/extension, vegetable grower, EPL, AIN, IO Brisk capillary refill distally [...] changes develop in his course. Please page [phone] following completion of requestedimaging and studies. - [...] 10:30 AM EDT Office [place] [address] Elkin Garcia MD [facility] [place] [address] Scheduled Referrals Name Type Priority Associated Diagnoses [...] EDT Upper Gi Endoscopy, W/Dir Submuc Inj ([id number]) 05/22/2024 4:39 PM EDT ? melena Upper Gi Endoscopy, Ctrl Bleed ([id number]) 05/22/2024 4:39 PM EDT ? melena Upper GI Endoscopy, Diagnostic ([id number]) 05/22/2024 4:39 PM EDT ? melena UPPER [...] 05/14/2024 11:32 AM EDT Amputation Metatarsal+Toe, Single ([id number]) 05/14/2024 10:37 AM EDT right second toe [...] - 199 mg/dL 05/23/2024 12:32 PM EDT [facility] Comment:Supplemental ranges: <140 mg/dL before meals <180 mg/dL all other times of the day. Blood CAPILLARY BLOOD / Unknown 05/23/2024 12:32 PM EDT 05/23/2024 12:32 PM EDT Saba Spears MD POINT OF CARE TEST ORDERABLES [facility] [place] [place] [address] * (ABNORMAL) Basic Metabolic Panel (05/23/2024 9:46 AM EDT) Glucose 142 65 - 199 mg/dL 05/23/2024 11:27 AM EDT [facility] Comment:Glucose Concentratio n >=200 mg/dL plus symptoms is consistent with Diabetes Mellitus. Blood Urea Nitrogen 83(H) 10 - 20 mg/dL 05/23/2024 11:27 AM [facility] Creatinine 2.64(H) 0.80 - 1.50 mg/dL 05/23/2024 11:27 AM [facility] Sodium 140 135 - 145 mMol/L 05/23/2024 11:27 AM [facility] Potassium 5.2(H) 3.5 - 5.0 mMol/L 05/23/2024 11:27 AM [facility] Chloride 111(H) 98 - 107 mMol/L 05/23/2024 11:27 AM [facility] Carbon Dioxide 20(L) 22 - 31 mMol/L 05/23/2024 11:27 AM [facility] Anion Gap 9 5 - 15 mMol/L 05/23/2024 11:27 AM [facility] Calcium 9.3 8.5 - 10.5 mg/dL 05/23/2024 11:27 AM [facility] Est Glomerular Filtration Rate - Male 25 mL/min/1. 73 m?? 05/23/2024 11:27 AM [facility] Comment: This patient's estimated GFR [...] EDT Saba Spears MD CHEMISTRY ORDERABLE S [facility] [place] [address] * (ABNORMAL) CBC (with Diff) (05/23/2024 9:46 AM EDT) White Blood Cell 12.66(H) 4.00 - 9.50 x10(3)/mc L 05/23/2024 10:52 AM EDT [facility] Red Blood Cell 2.56(L) 4.58 - 5.54 x10(6)/mc L 05/23/2024 10:52 AM EDT [facility] Hemoglobin 7.7(L) 13.7 - 16.5 g/dL 05/23/2024 10:52 AM [facility] Hematocrit 24.3(L) 40.5 - 48.5 % 05/23/2024 10:52 AM EDT [facility] Mean Cell Volume 94.9(H) 82.9 - 93.1 fL 05/23/2024 10:52 AM [facility] Mean Cell Hemoglobin 30.1 27.5 - 32.1 pg 05/23/2024 10:52 AM [facility] Mean Cell Hemoglobin Concentration 31.7(L) 32.0 - 35.7 g/dL 05/23/2024 10:52 AM EDT [facility] Platelet 370(H) 145 - 357 x10(3)/mc L 05/23/2024 10:52 AM [facility] Mean Platelet Volume 11.6 7.6 - 12.9 fL 05/23/2024 10:[facility] RDW Standard Deviation 57.1(H) 36.0 - 45.0 fL 05/23/2024 10:52 AM [facility] RDW coefficient of variation 16.9(H) 11.4 - 13.8 % 05/23/2024 10:52 AM [facility] NRBC% auto 0.0 % 05/23/2024 10:52 AM [facility] NRBC Absolute 0.00 0.00 - 0.00 x10(3)/mc L 05/23/2024 10:52 AM [facility] Neutrophil % 81.6 % 05/23/2024 10:52 AM [facility] Neutrophil Absolute 10.34(H) 1.70 - 6.10 x10(3)/mc L 05/23/2024 10:52 AM [facility] Lymph % 5.1 % 05/23/2024 10:52 AM [facility] Lymph Absolute 0.64(L) 0.90 - 3.20 x10(3)/mc L 05/23/2024 10:52 AM [facility] Monocyte % 10.7 % 05/23/2024 10:52 AM [facility] Monocyte Absolute 1.35(H) 0.30 - 0.90 x10(3)/mc L 05/23/2024 10:52 AM [facility] Eos % 1.7 % 05/23/2024 10:52 AM [facility] Eos Absolute 0.22 0.00 - 0.40 x10(3)/mc L 05/23/2024 10:52 AM [facility] Basophil % 0.3 % 05/23/2024 10:52 AM [facility] Baso Absolute 0.04 0.00 - 0.10 x10(3)/mc L 05/23/2024 10:52 AM [facility] Immature Gran % 0.6 % 10:52 AM [facility] Immature Gran Absolute 0.07(H) 0.00 - 0.04 x10(3)/mc L 05/23/2024 10:52 AM [facility] Blood VENOUS BLOOD SPECIMEN / Unknown IP Care Team Draw / Unknown 05/23/2024 9:46 AM EDT 05/23/2024 10:01 AM EDT Saba Spears MD HEMATOLOGY ORDERABL ES Performing Organization Address [facility] Co de Phone Number [facility] [place] [phone] * POC, GLUCOSE (05/23/2024 7:44 AM EDT) Glucometer, POC 127 65 - 199 mg/dL 05/23/2024 7:44 AM EDT [facility] Comment:Supplemental ranges: <140 mg/dL before meals <180 mg/dL all other times of the day. Blood CAPILLARY BLOOD / Unknown 05/23/2024 7:44 AM EDT 05/23/2024 7:45 AM EDT Saba Spears MD POINT OF CARE TEST ORDERABLES Performing Organization Address [facility] Co de Phone Number [facility] [place] [place] [address] * Prepare RBC (05/23/2024 3:49 AM EDT) Status Information Transfused [facility] Product Identification RBC [facility] Unit Number [id number] [facility] Product Code [id number] [facility] Unit Blood Type OPOS [facility] Specimen Expiration Date [id number] [facility] Volulme 350 [facility] Issue Date / Time [id number] [facility] Blood 05/22/2024 12: 42 PM EDT Saba Spears MD BLOOD BANK PRODUCT ORDERABLES Performing Organization Address City/[facility] Co de Phone Number [facility] [place] [address] * POC, GLUCOSE (05/23/2024 3:49 AM EDT) Glucometer, POC 152 65 - 199 mg/dL 05/23/2024 3:49 AM EDT [facility] Comment:Supplemental ranges: <140 mg/dL before meals <180 mg/dL all other times of the day. Blood CAPILLARY BLOOD / Unknown 05/23/2024 3:49 AM EDT 05/23/2024 3:49 AM EDT Saba Spears MD POINT OF CARE TEST ORDERABLES Performing Organization Address City/[facility] Co de Phone Number [facility] [place] [address] * POC, GLUCOSE (05/23/2024 1:26 AM EDT) Glucometer, POC 138 65 - 199 mg/dL 05/23/2024 1:26 AM EDT [facility] Comment:Supplemental ranges: <140 mg/dL before meals <180 mg/dL all other times of the day. Blood CAPILLARY BLOOD / Unknown 05/23/2024 1:26 AM EDT 05/23/2024 1:26 AM EDT Saba Spears MD POINT OF CARE TEST ORDERABLES Performing Organization Address City/[facility] Co de Phone Number [facility] [place] [address] * (ABNORMAL) Scan, Peripheral Blood (05/23/2024 1:19 AM EDT) RBC Morphology Abnormal 05/23/2024 3:44 AM EDT [facility] Platelet Estimate Increased(A) Normal 05/23/2024 3:44 AM EDT [facility] Ovalocytes 1-5 /HPF 05/23/2024 3:44 AM EDT [facility] [place] cells 1-5 /HPF 05/23/2024 3:44 AM EDT [facility] Blood VENOUS BLOOD SPECIMEN / Unknown IP Care Team Draw / Unknown 05/23/2024 1:19 AM EDT 05/23/2024 2:05 AM EDT Mary De La Fuente MD HEMATOLOGY ORDERAB LES Performing Organization Address [facility]/ZIP Co de Phone Number [facility] [place] [address] * Magnesium (05/23/2024 1:19 AM EDT) Magnesium 0.86 0.69 - 1.07 mMol/L 05/23/2024 2:40 AM EDT [facility] Blood VENOUS BLOOD SPECIMEN / Unknown IP Care Team Draw / Unknown 05/23/2024 1:19 AM EDT 05/23/2024 2:05 AM EDT Mary De La Fuente MD CHEMISTRY ORDERABL ES Performing Organization Address [facility] Co de Phone Number [facility] [place] [address] * (ABNORMAL) Phosphorus (05/23/2024 1:19 AM EDT) Phosphorus 5.8(H) 2.5 - 4.5 mg/dL 05/23/2024 2:40 AM EDT [facility] Blood VENOUS BLOOD SPECIMEN / Unknown IP Care Team Draw / Unknown 05/23/2024 1:19 AM EDT 05/23/2024 2:05 AM EDT Mary De La Fuente MD CHEMISTRY ORDERABL ES Performing Organization Address [facility]/ZIP Co de Phone Number [facility] [place] [address] * (ABNORMAL) Basic Metabolic Panel (non-fasting) (05/23/2024 1:19 AM EDT) Glucose 158 65 - 199 mg/dL 05/23/2024 3:34 AM EDT [facility] Comment:Glucose Concentratio n >=200 mg/dL plus symptoms is consistent with Diabetes Mellitus. Blood Urea Nitrogen 85(H) 10 - 20 mg/dL 05/23/2024 3:34 AM EDT [facility] Creatinine 2.70(H) 0.80 - 1.50 mg/dL 05/23/2024 3:34 AM EDT [facility] Sodium 139 135 - 145 mMol/L 05/23/2024 3:34 AM [facility] Potassium 4.9 3.5 - 5.0 mMol/L 05/23/2024 3:34 AM [facility] Chloride 108(H) 98 - 107 mMol/L 05/23/2024 3:34 AM [facility] Carbon Dioxide 20(L) 22 - 31 mMol/L 05/23/2024 [facility] Anion Gap 11 5 - 15 mMol/L 05/23/2024 3:34 AM [facility] Calcium 9.1 8.5 - 10.5 mg/dL 05/23/2024 3:34 AM [facility] Est Glomerular Filtration Rate - Male 25 mL/min/1. 73 m?? 05/23/2024 3:34 AM [facility] Comment: This patient's estimated GFR [...] Foundation Fasting Status 05/23/2024 3:34 AM T [facility] Blood VENOUS BLOOD SPECIMEN / Unknown IP Care Team Draw / Unknown 05/23/2024 1:19 AM EDT 05/23/2024 2:05 AM EDT Mary De La Fuente MD CHEMISTRY ORDERABL ES [facility] [place] [place] [address] * (ABNORMAL) CBC (with Diff) (05/23/2024 1:19 AM EDT) White Blood Cell 12.66(H) 4.00 - 9.50 x10(3)/mc L 05/23/2024 3:44 AM [facility] Red Blood Cell 2.61(L) 4.58 - 5.54 x10(6)/mc L 05/23/2024 3:44 AM [facility] Hemoglobin 7.8(L) 13.7 - 16.5 g/dL 05/23/2024 3:44 AM [facility] Hematocrit 24.3(L) 40.5 - 48.5 % 05/23/2024 3:44 AM [facility] Mean Cell Volume 93.1 82.9 - 93.1 fL 05/23/2024 3:44 AM [facility] Mean Cell Hemoglobin 29.9 27.5 - 32.1 pg 05/23/2024 3:44 AM [facility] Mean Cell Hemoglobin Concentration 32.1 32.0 - 35.7 g/dL 05/23/2024 3:44 AM [facility] Platelet 381(H) 145 - 357 x10(3)/mc L 05/23/2024 3:44 AM [facility] Mean Platelet Volume 11.4 7.6 - 12.9 fL 05/23/2024 3:44 AM [facility] RDW Standard Deviation 55.1(H) 36.0 - 45.0 fL 05/23/2024 3:44 AM [facility] RDW coefficient of variation 16.5(H) 11.4 - 13.8 % 05/23/2024 3:44 AM [facility] NRBC% auto 0.0 % 05/23/2024 3:44 AM [facility] NRBC Absolute 0.00 0.00 - 0.00 x10(3)/mc L 05/23/2024 3:44 AM [facility] Neutrophil % 79.4 % 05/23/2024 3:44 AM [facility] Comment:This is an appended report. These results have been appended to a previously preliminary verified report. Neutrophil Absolute 10.06(H) 1.70 - 6.10 x10(3)/mc L 05/23/2024 3:44 AM [facility] Comment:This is an appended report. These results have been appended to a previously preliminary verified report. Lymph % 5.8 % 05/23/2024 3:44 AM [facility] Comment:This is an appended report. These results have been appended to a previously preliminary verified report. Lymph Absolute 0.73(L) 0.90 - 3.20 x10(3)/mc L 05/23/2024 3:44 AM [facility] Comment:This is an appended report. These results have been appended to a previously preliminary verified report. Monocyte % 12.1 % 05/23/2024 3:44 AM [facility] Comment:This is an appended report. These results have been appended to a previously preliminary verified report. Monocyte Absolute 1.53(H) 0.30 - 0.90 x10(3)/mc L 05/23/2024 3:44 AM [facility] Comment:This is an appended report. These results have been appended to a previously preliminary verified report. Eos % 1.9 % 05/23/2024 3:44 AM [facility] Comment:This is an appended report. These results have been appended to a previously preliminary verified report. Eos Absolute 0.24 0.00 - 0.40 x10(3)/mc L 05/23/2024 3:44 AM [facility] Comment:This is an appended report. These results have been appended to a previously preliminary verified report. Basophil % 0.3 % 05/23/2024 3:44 AM [facility] Comment:This is an appended report. These results have been appended to a previously preliminary verified report. Baso Absolute 0.04 0.00 - 0.10 x10(3)/mc L 05/23/2024 3:44 AM EDT [facility] Comment:This is an appended report. These results have been appended to a previously preliminary verified report. Immature Gran % 0.5 % 3:44 AM EDT [facility] Comment:This is an appended report. These results have been appended to a previously preliminary verified report. Immature Gran Absolute 0.06(H) 0.00 - 0.04 x10(3)/mc L 05/23/2024 3:44 AM EDT [facility] Comment:This is an appended report. These results have been appended to a previously preliminary verified report. Blood VENOUS BLOOD SPECIMEN / Unknown IP Care Team Draw / Unknown 05/23/2024 1:19 AM EDT 05/23/2024 2:05 AM EDT Mary De La Fuente MD HEMATOLOGY ORDERAB LES Performing Organization Address City/[facility]/ZIP Co de Phone Number [facility] [place] [address] * POC, GLUCOSE (05/22/2024 8:21 PM EDT) Glucometer, POC 152 65 - 199 mg/dL 05/22/2024 8:21 PM EDT [facility] Comment:Supplemental ranges: <140 mg/dL before meals <180 mg/dL all other times of the day. Blood CAPILLARY BLOOD / Unknown 05/22/2024 8:21 PM EDT 05/22/2024 8:21 PM EDT Saba Spears MD POINT OF CARE TEST ORDERABLES Performing Organization Address City/[facility]/ZIP Co de Phone Number [facility] [place] [address] * POC, GLUCOSE (05/22/2024 6:20 PM EDT) Glucometer, POC 130 65 - 199 mg/dL 05/22/2024 6:20 PM EDT [facility] Comment:Supplemental ranges: <140 mg/dL before meals <180 mg/dL all other times of the day. Blood CAPILLARY BLOOD / Unknown 05/22/2024 6:20 PM EDT 05/22/2024 6:21 PM EDT Saba Spears MD POINT OF CARE TEST ORDERABLES [facility] [place] [address] * Transfuse RBC (05/22/2024 2:45 PM EDT) Saba Spears MD NURSING TREATMENT O RDERABLES - BLOOD ADMIN * UPPER GI ENDOSCOPY (05/22/2024 12:48 PM EDT) [facility] UPPER GI ENDOSCOPY [facility] ___ Procedure Date: 05/22/2024 12:48 PM ? Patient Name: Jossy Shanks ? N: [id number] ? Date of : 1955 ? Age: 69 ? Order #: [id number] ? Instrument Name: [id number]- [id number] ? ___ Procedure: ? Upper GI endoscopy [...] Recheck Progress Complete 05/22/2024 1:01 PM EDT [facility] Blood VENOUS BLOOD SPECIMEN / Unknown IP Care Team Draw / Unknown 05/22/2024 11:18 AM EDT 05/22/2024 11:27 AM EDT Saba Spears MD BLOOD BANK LAB FADY GAO [facility] [place] [address] * Type and screen ([facility]CG[facility]/TARA) (05/22/2024 11:18 AM EDT) ABORH Type O POSITIVE 05/22/2024 12:31 PM EDT [facility] PATIENT HISTORY Found 05/22/2024 12:31 PM EDT [facility] Expires at [id number] on: 05-22-2024 05/22/2024 12:31 PM EDT [facility] ANTIBODY SCREEN AUTOMATED Negative 05/22/2024 12:31 PM EDT [facility] T&S only valid at [facility] 05/22/2024 12:31 PM EDT [facility] Blood VENOUS BLOOD SPECIMEN / Unknown IP Care Team Draw / Unknown 05/22/2024 11:18 AM EDT 05/22/2024 11:27 AM EDT Narrative [facility] - 05/22/2024 12:31 PM EDT This Type and Screen result is only valid at the [facility] Saba Spears MD BLOOD BANK LAB ORDE RABLES [facility] [place] [address] * (ABNORMAL) Hemoglobin and Hematocrit, blood (05/22/2024 11:18 AM EDT) Hemoglobin 6.9(L) 13.7 - 16.5 g/dL 05/22/2024 12:02 PM EDT [facility] Hematocrit 21.4(L) 40.5 - 48.5 % 05/22/2024 12:02 PM EDT [facility] Blood VENOUS BLOOD SPECIMEN / Unknown IP Care Team Draw / Unknown 05/22/2024 11:18 AM EDT 05/22/2024 11:36 AM EDT Saba Spears MD HEMATOLOGY ORDERABL ES [facility] [place] [address] * POC, GLUCOSE (05/22/2024 11:14 AM EDT) Glucometer, POC 126 65 - 199 mg/dL 05/22/2024 11:17 AM EDT [facility] Comment:Supplemental ranges: <140 mg/dL before meals <180 mg/dL all other times of the day. Blood CAPILLARY BLOOD / Unknown 05/22/2024 11:14 AM EDT 05/22/2024 11:18 AM EDT Saba Spears MD POINT OF CARE TEST ORDERABLES Performing Organization Address City/[facility]/ZIP Co de Phone Number [facility] [place] [address] * POC, GLUCOSE (05/22/2024 8:07 AM EDT) Glucometer, POC 132 65 - 199 mg/dL 05/22/2024 8:08 AM EDT [facility] Comment:Supplemental ranges: <140 mg/dL before meals <180 mg/dL all other times of the day. Blood CAPILLARY BLOOD / Unknown 05/22/2024 8:07 AM EDT 05/22/2024 8:08 AM EDT Saba Spears MD POINT OF CARE TEST ORDERABLES [facility] [place] [address] * (ABNORMAL) Hepatic Function Panel (05/22/2024 5:18 AM EDT) Albumin 2.6(L) 3.2 - 5.2 g/dL 05/22/2024 9:50 AM EDT [facility] Aspartate Aminotransferase 18 <=39 unit/L 05/22/2024 9:50 AM EDT [facility] Alanine Aminotransferase 42 0 - 55 unit/L 05/22/2024 9:50 AM EDT [facility] Alkaline Phosphatase 84 40 - 130 unit/L 05/22/2024 9:50 AM EDT [facility] Bilirubin, Total <0.2 <=1.3 mg/dL 05/22/2024 9:50 AM EDT [facility] Bilirubin, Direct <0.2 0.0 - 0.3 mg/dL 05/22/2024 9:50 AM EDT [facility] Protein, Total 6.0(L) 6.1 - 8.0 g/dL 05/22/2024 9:50 AM EDT [facility] Blood VENOUS BLOOD SPECIMEN / Unknown IP Care Team Draw / Unknown 05/22/2024 5:18 AM EDT 05/22/2024 5:45 AM EDT Saba Spears MD CHEMISTRY ORDERABLE S Performing Organization Address City/[facility]/ZIP Co de Phone Number [facility] [place] [address] * Magnesium (05/22/2024 5:18 AM EDT) Magnesium 0.93 0.69 - 1.07 mMol/L 05/22/2024 6:16 AM EDT [facility] Blood VENOUS BLOOD SPECIMEN / Unknown IP Care Team Draw / Unknown 05/22/2024 5:18 AM EDT 05/22/2024 5:45 AM EDT Mary De La Fuente MD CHEMISTRY ORDERABL ES [facility] [place] [address] * (ABNORMAL) Phosphorus (05/22/2024 5:18 AM EDT) Phosphorus 5.8(H) 2.5 - 4.5 mg/dL 05/22/2024 6:16 AM EDT [facility] Blood VENOUS BLOOD SPECIMEN / Unknown IP Care Team Draw / Unknown 05/22/2024 5:18 AM EDT 05/22/2024 5:45 AM EDT Mary De La Fuente MD CHEMISTRY ORDERABL ES [facility] [place] [place] [address] * (ABNORMAL) Basic Metabolic Panel (05/22/2024 5:18 AM EDT) Glucose 121 65 - 199 mg/dL 05/22/2024 6:16 AM EDT [facility] Comment:Glucose Concentratio n >=200 mg/dL plus symptoms is consistent with Diabetes Mellitus. Blood Urea Nitrogen 97(H) 10 - 20 mg/dL 05/22/2024 6:16 AM [facility] Creatinine 2.77(H) 0.80 - 1.50 mg/dL 05/22/2024 6:16 AM [facility] Sodium 138 135 - 145 mMol/L 05/22/2024 6:16 AM [facility] Potassium 5.1(H) 3.5 - 5.0 mMol/L 05/22/2024 6:16 AM [facility] Chloride 110(H) 98 - 107 mMol/L 05/22/2024 6:16 AM [facility] Carbon Dioxide 20(L) 22 - 31 mMol/L 05/22/2024 6:16 AM [facility] Anion Gap 8 5 - 15 mMol/L 05/22/2024 6:16 AM [facility] Calcium 9.4 8.5 - 10.5 mg/dL 05/22/2024 6:16 AM [facility] Est Glomerular Filtration Rate - Male 24 mL/min/1. 73 m?? 05/22/2024 6:16 AM [facility] Comment: This patient's estimated GFR [...] Fasting Status No 05/22/2024 6:16 AM EDT [facility] Blood VENOUS BLOOD SPECIMEN / Unknown IP Care Team Draw / Unknown 05/22/2024 5:18 AM EDT 05/22/2024 5:45 AM EDT Mary De La Fuente MD CHEMISTRY ORDERABL ES [facility] [place] [address] * (ABNORMAL) CBC (with Diff) (05/22/2024 5:18 AM EDT) White Blood Cell 14.70(H) 4.00 - 9.50 x10(3)/mc L 05/22/2024 5:52 AM [facility] Red Blood Cell 2.37(L) 4.58 - 5.54 x10(6)/mc L 05/22/2024 5:52 AM [facility] Hemoglobin 7.2(L) 13.7 - 16.5 g/dL 05/22/2024 5:52 AM [facility] Hematocrit 22.1(L) 40.5 - 48.5 % 05/22/2024 5:52 AM [facility] Mean Cell Volume 93.2(H) 82.9 - 93.1 fL 05/22/2024 5:52 AM [facility] Mean Cell Hemoglobin 30.4 27.5 - 32.1 pg 05/22/2024 5:52 AM [facility] Mean Cell Hemoglobin Concentration 32.6 32.0 - 35.7 g/dL 05/22/2024 5:52 AM [facility] Platelet 366(H) 145 - 357 x10(3)/mc L 05/22/2024 5:52 AM [facility] Mean Platelet Volume 10.9 7.6 - 12.9 fL 05/22/2024 5:52 AM [facility] RDW Standard Deviation 54.6(H) 36.0 - 45.0 fL 05/22/2024 5:52 AM [facility] RDW coefficient of variation 16.3(H) 11.4 - 13.8 % 05/22/2024 5:52 AM [facility] NRBC% auto 0.0 % 05/22/2024 5:52 AM [facility] NRBC Absolute 0.00 0.00 - 0.00 x10(3)/mc L 05/22/2024 5:52 AM [facility] Neutrophil % 83.2 % 05/22/2024 5:52 AM [facility] Neutrophil Absolute 12.22(H) 1.70 - 6.10 x10(3)/mc L 05/22/2024 5:52 AM [facility] Lymph % 4.4 % 05/22/2024 5:52 AM [facility] Lymph Absolute 0.65(L) 0.90 - 3.20 x10(3)/mc L 05/22/2024 5:52 AM [facility] Monocyte % 9.7 % 05/22/2024 5:52 AM [facility] Monocyte Absolute 1.43(H) 0.30 - 0.90 x10(3)/mc L 05/22/2024 5:52 AM [facility] Eos % 1.9 % 05/22/2024 5:52 AM [facility] Eos Absolute 0.28 0.00 - 0.40 x10(3)/mc L 05/22/2024 5:52 AM [facility] Basophil % 0.2 % 05/22/2024 5:52 AM EDT [facility] Baso Absolute 0.03 0.00 - 0.10 x10(3)/mc L 05/22/2024 5:52 AM EDT [facility] Immature Gran % 0.6 % 5:52 AM EDT [facility] Immature Gran Absolute 0.09(H) 0.00 - 0.04 x10(3)/mc L 05/22/2024 5:52 AM EDT [facility] Blood VENOUS BLOOD SPECIMEN / Unknown IP Care Team Draw / Unknown 05/22/2024 5:18 AM EDT 05/22/2024 5:45 AM EDT Mary De La Fuente MD HEMATOLOGY ORDERAB LES Performing Organization Address City/[facility]/ZIP Co de Phone Number [facility] [place] [address] * POC, GLUCOSE (05/22/2024 3:50 AM EDT) Glucometer, POC 140 65 - 199 mg/dL 05/22/2024 3:50 AM EDT [facility] Comment:Supplemental ranges: <140 mg/dL before meals <180 mg/dL all other times of the day. Blood CAPILLARY BLOOD / Unknown 05/22/2024 3:50 AM EDT 05/22/2024 3:50 AM EDT Saba Spears MD POINT OF CARE TEST ORDERABLES Performing Organization Address City/[facility]/ZIP Co de Phone Number [facility] [place] [address] * Scan Doc: Lab (05/22/2024 12:00 AM EDT) Narrative 05/22/2024 12:00 AM EDT Ordered by an unspecified provider. Scanning Provider MEDIA MGR SCAN EXT O RDR/RSLT * POC, GLUCOSE (05/21/2024 11:28 PM EDT) Glucometer, POC 174 65 - 199 mg/dL 05/21/2024 11:28 PM EDT [facility] Comment:Supplemental ranges: <140 mg/dL before meals <180 mg/dL all other times of the day. Blood CAPILLARY BLOOD / Unknown 05/21/2024 11:28 PM EDT 05/21/2024 11:28 PM EDT Saba Spears MD POINT OF CARE TEST ORDERABLES Performing Organization Address City/[facility] Co de Phone Number [facility] [place] [address] * POC, GLUCOSE (05/21/2024 7:49 PM EDT) Glucometer, POC 161 65 - 199 mg/dL 05/21/2024 7:49 PM EDT [facility] Comment:Supplemental ranges: <140 mg/dL before meals <180 mg/dL all other times of the day. Blood CAPILLARY BLOOD / Unknown 05/21/2024 7:49 PM EDT 05/21/2024 7:49 PM EDT Saba Spears MD POINT OF CARE TEST ORDERABLES Performing Organization Address [facility] Co de Phone Number [facility] [place] [address] * POC, GLUCOSE (05/21/2024 5:18 PM EDT) Glucometer, POC 152 65 - 199 mg/dL 05/21/2024 5:18 PM EDT [facility] Comment:Supplemental ranges: <140 mg/dL before meals <180 mg/dL all other times of the day. Blood CAPILLARY BLOOD / Unknown 05/21/2024 5:18 PM EDT 05/21/2024 5:18 PM EDT Saba Spears MD POINT OF CARE TEST ORDERABLES Performing Organization Address City/[facility]/ZIP Co de Phone Number [facility] [place] [address] * (ABNORMAL) Hemogram (05/21/2024 3:00 PM EDT) White Blood Cell 14.25(H) 4.00 - 9.50 x10(3)/mc L 05/21/2024 3:41 PM EDT [facility] Red Blood Cell 2.61(L) 4.58 - 5.54 x10(6)/mc L 05/21/2024 3:41 PM EDT [facility] Hemoglobin 7.8(L) 13.7 - 16.5 g/dL 05/21/2024 3:41 PM [facility] Hematocrit 24.5(L) 40.5 - 48.5 % 05/21/2024 3:41 PM [facility] Mean Cell Volume 93.9(H) 82.9 - 93.1 fL 05/21/2024 3:41 PM [facility] Mean Cell Hemoglobin 29.9 27.5 - 32.1 pg 05/21/2024 3:41 PM [facility] Mean Cell Hemoglobin Concentration 31.8(L) 32.0 - 35.7 g/dL 05/21/2024 3:41 PM [facility] Platelet 456(H) 145 - 357 x10(3)/mc L 05/21/2024 3:41 PM [facility] Mean Platelet Volume 11.1 7.6 - 12.9 fL 05/21/2024 3:41 PM [facility] RDW Standard Deviation 55.2(H) 36.0 - 45.0 fL 05/21/2024 3:41 PM [facility] RDW coefficient of variation 16.1(H) 11.4 - 13.8 % 05/21/2024 3:41 PM [facility] NRBC% auto 0.0 % 05/21/2024 3:41 PM [facility] NRBC Absolute 0.00 0.00 - 0.00 x10(3)/mc L 05/21/2024 3:41 PM EDT [facility] Blood VENOUS BLOOD SPECIMEN / Unknown IP Care Team Draw / Unknown 05/21/2024 3:00 PM EDT 05/21/2024 3:36 PM EDT Saba Spears MD HEMATOLOGY ORDERABL ES Performing Organization Address [facility] Co de Phone Number [facility] [place] [address] * POC, GLUCOSE (05/21/2024 12:39 PM EDT) [facility] Signature Glucometer, POC 144 65 - 199 mg/dL 05/21/2024 12:39 PM EDT [facility] Comment:Supplemental ranges: <140 mg/dL before meals <180 mg/dL all other times of the day. Blood CAPILLARY BLOOD / Unknown 05/21/2024 12:39 PM EDT 05/21/2024 12:39 PM EDT Saba Spears MD POINT OF CARE TEST ORDERABLES Performing Organization Address [facility] Co de Phone Number [facility] [place] [address] * IR Tunneled Central Venous Access Non-Dialysis [...] and osteomyelitis s/p 2ng toe amputation requiring termination clerk IV antibiotic administration who presents to Interventional [...] guidance and a 4Fr sheath placed. ??[address] injection compatible single lumen catheter was [...] * POC, GLUCOSE (05/21/2024 9:12 AM EDT) [facility] Glucometer, POC 144 65 - 199 mg/dL 05/21/2024 9:12 AM EDT [facility] Comment:Supplemental ranges: <140 mg/dL before meals <180 mg/dL all other times of the day. Blood CAPILLARY BLOOD / Unknown 05/21/2024 9:12 AM EDT 05/21/2024 9:12 AM EDT Saba Spears MD POINT OF CARE TEST ORDERABLES [facility] [place] [address] * POC, GLUCOSE (05/21/2024 8:32 AM EDT) Glucometer, POC 135 65 - 199 mg/dL 05/21/2024 8:32 AM EDT [facility] Comment:Supplemental ranges: <140 mg/dL before meals <180 mg/dL all other times of the day. Blood CAPILLARY BLOOD / Unknown 05/21/2024 8:32 AM EDT 05/21/2024 8:32 AM EDT Saba Spears MD POINT OF CARE TEST ORDERABLES Performing Organization Address City/[facility]/ZIP Co de Phone Number [facility] [place] [address] * (ABNORMAL) Hemogram (05/21/2024 8:27 AM EDT) White Blood Cell 15.77(H) 4.00 - 9.50 x10(3)/mc L 05/21/2024 8:54 AM EDT [facility] Red Blood Cell 2.47(L) 4.58 - 5.54 x10(6)/mc L 05/21/2024 8:54 AM EDT [facility] Hemoglobin 7.5(L) 13.7 - 16.5 g/dL 05/21/2024 8:54 AM EDT [facility] Hematocrit 23.0(L) 40.5 - 48.5 % 05/21/2024 8:54 AM EDT [facility] Mean Cell Volume 93.1 82.9 - 93.1 fL 05/21/2024 8:54 AM EDT [facility] Mean Cell Hemoglobin 30.4 27.5 - 32.1 pg 05/21/2024 8:54 AM EDT [facility] Mean Cell Hemoglobin Concentration 32.6 32.0 - 35.7 g/dL 05/21/2024 8:54 AM EDT [facility] Platelet 398(H) 145 - 357 x10(3)/mc L 05/21/2024 8:54 AM EDT [facility] Mean Platelet Volume 10.8 7.6 - 12.9 fL 05/21/2024 8:54 AM EDT [facility] RDW Standard Deviation 54.6(H) 36.0 - 45.0 fL 05/21/2024 8:54 AM EDT [facility] RDW coefficient of variation 16.1(H) 11.4 - 13.8 % 05/21/2024 8:54 AM EDT [facility] NRBC% auto 0.0 % 05/21/2024 8:54 AM EDT [facility] NRBC Absolute 0.00 0.00 - 0.00 x10(3)/mc L 05/21/2024 8:54 AM EDT [facility] Blood VENOUS BLOOD SPECIMEN / Unknown IP Care Team Draw / Unknown 05/21/2024 8:27 AM EDT 05/21/2024 8:42 AM EDT Saba Spears MD HEMATOLOGY ORDERABL ES [facility] [place] [address] * (ABNORMAL) CRP, acute inflammation (05/21/2024 4:58 AM EDT) C-Reactive Protein 14.1(H) <=4.9 mg/L 05/21/2024 10:05 AM EDT [facility] Blood VENOUS BLOOD SPECIMEN / Unknown IP Care Team Draw / Unknown 05/21/2024 4:58 AM EDT 05/21/2024 5:17 AM EDT Saba Spears MD CHEMISTRY ORDERABLE S Performing Organization Address [facility]/ZIP Co de Phone Number [facility] [place] [address] * Magnesium (05/21/2024 4:58 AM EDT) Magnesium 0.99 0.69 - 1.07 mMol/L 05/21/2024 5:51 AM EDT [facility] Blood VENOUS BLOOD SPECIMEN / Unknown IP Care Team Draw / Unknown 05/21/2024 4:58 AM EDT 05/21/2024 5:17 AM EDT Mary De La Fuente MD CHEMISTRY ORDERABL ES Performing Organization Address [facility] Co de Phone Number [facility] [place] [address] * (ABNORMAL) Phosphorus (05/21/2024 4:58 AM EDT) Phosphorus 6.2(H) 2.5 - 4.5 mg/dL 05/21/2024 5:51 AM EDT [facility] Blood VENOUS BLOOD SPECIMEN / Unknown IP Care Team Draw / Unknown 05/21/2024 4:58 AM EDT 05/21/2024 5:17 AM EDT Mary De La Fuente MD CHEMISTRY ORDERABL ES Performing Organization Address [facility]/ZIP Co de Phone Number [facility] [address] * (ABNORMAL) Basic Metabolic Panel (05/21/2024 4:58 AM EDT) Glucose 151 65 - 199 mg/dL 05/21/2024 5:51 AM EDT [facility] Comment:Glucose Concentratio n >=200 mg/dL plus symptoms is consistent with Diabetes Mellitus. Blood Urea Nitrogen 110(H) 10 - 20 mg/dL 05/21/2024 5:51 AM EDT [facility] Creatinine 3.04(H) 0.80 - 1.50 mg/dL 05/21/2024 5:51 AM EDT [facility] Sodium 138 135 - 145 mMol/L [facility]2024 [facility] Potassium 5.1(H) 3.5 - 5.0 mMol/L 05/21/2024 5:51 AM [facility] Chloride 111(H) 98 - 107 mMol/L 05/21/2024 5:[facility] Carbon Dioxide 18(L) 22 - 31 mMol/L 05/21/2024 5:[facility] Anion Gap 9 5 - 15 mMol/L 05/21/2024 5:51 AM [facility] Calcium 9.4 8.5 - 10.5 mg/dL 05/21/2024 5:51 AM [facility] Est Glomerular Filtration Rate - Male 21 mL/min/1. 73 m?? 05/21/2024 5:51 AM [facility] Comment: This patient's estimated GFR [...] Fasting Status No 05/21/2024 5:51 AM T [facility] Blood VENOUS BLOOD SPECIMEN / Unknown IP Care Team Draw / Unknown 05/21/2024 4:58 AM EDT 05/21/2024 5:17 AM EDT Mary De La Fuente MD CHEMISTRY ORDERABL ES [facility] [place] [address] * (ABNORMAL) CBC (with Diff) (05/21/2024 4:58 AM EDT) White Blood Cell 14.49(H) 4.00 - 9.50 x10(3)/mc L 05/21/2024 5:28 AM EDT [facility] Red Blood Cell 2.54(L) 4.58 - 5.54 x10(6)/mc L 05/21/2024 5:28 AM [facility] Hemoglobin 7.5(L) 13.7 - 16.5 g/dL 05/21/2024 5:28 AM [facility] Hematocrit 23.6(L) 40.5 - 48.5 % 05/21/2024 5:28 AM [facility] Mean Cell Volume 92.9 82.9 - 93.1 fL 05/21/2024 5:28 AM [facility] Mean Cell Hemoglobin 29.5 27.5 - 32.1 pg 05/21/2024 5:28 AM [facility] Mean Cell Hemoglobin Concentration 31.8(L) 32.0 - 35.7 g/dL 05/21/2024 5:28 AM [facility] Platelet 388(H) 145 - 357 x10(3)/mc L 05/21/2024 5:28 AM [facility] Mean Platelet Volume 10.8 7.6 - 12.9 fL 05/21/2024 5:28 AM [facility] RDW Standard Deviation 53.6(H) 36.0 - 45.0 fL 05/21/2024 5:28 AM [facility] RDW coefficient of variation 16.0(H) 11.4 - 13.8 % 05/21/2024 5:28 AM [facility] NRBC% auto 0.0 % 05/21/2024 5:28 AM [facility] NRBC Absolute 0.00 0.00 - 0.00 x10(3)/mc L 05/21/2024 5:28 AM EDT [facility] Neutrophil % 81.6 % 05/21/2024 5:28 AM EDT [facility] Neutrophil Absolute 11.83(H) 1.70 - 6.10 x10(3)/mc L 05/21/2024 5:28 AM EDT [facility] Lymph % 6.1 % 05/21/2024 5:28 AM EDT [facility] Lymph Absolute 0.89(L) 0.90 - 3.20 x10(3)/mc L 05/21/2024 5:28 AM EDT [facility] Monocyte % 9.4 % 05/21/2024 5:28 AM EDT [facility] Monocyte Absolute 1.36(H) 0.30 - 0.90 x10(3)/mc L 05/21/2024 5:28 AM EDT [facility] Eos % 2.1 % 05/21/2024 5:28 AM EDT [facility] Eos Absolute 0.30 0.00 - 0.40 x10(3)/mc L 05/21/2024 5:28 AM EDT [facility] Basophil % 0.2 % 05/21/2024 5:28 AM EDT [facility] Baso Absolute 0.03 0.00 - 0.10 x10(3)/mc L 05/21/2024 5:28 AM EDT [facility] Immature Gran % 0.6 % 5:28 AM EDT [facility] Immature Gran Absolute 0.08(H) 0.00 - 0.04 x10(3)/mc L 05/21/2024 5:28 AM EDT [facility] Blood VENOUS BLOOD SPECIMEN / Unknown IP Care Team Draw / Unknown 05/21/2024 4:58 AM EDT 05/21/2024 5:17 AM EDT Mary De La Fuente MD HEMATOLOGY ORDERAB LES Performing Organization Address City/State/[facility] Co de Phone Number [facility] [place] [address] * POC, GLUCOSE (05/21/2024 3:45 AM EDT) Glucometer, POC 155 65 - 199 mg/dL 05/21/2024 3:45 AM EDT [facility] Comment:Supplemental ranges: <140 mg/dL before meals <180 mg/dL all other times of the day. Blood CAPILLARY BLOOD / Unknown 05/21/2024 3:45 AM EDT 05/21/2024 3:46 AM EDT Saba Spears MD POINT OF CARE TEST ORDERABLES Performing Organization Address [facility] Co de Phone Number [facility] [place] [place] [address] * POC, GLUCOSE (05/20/2024 11:44 PM EDT) Glucometer, POC 132 65 - 199 mg/dL 05/20/2024 11:44 PM EDT [facility] Comment:Supplemental ranges: <140 mg/dL before meals <180 mg/dL all other times of the day. Blood CAPILLARY BLOOD / Unknown 05/20/2024 11:44 PM EDT 05/20/2024 11:44 PM EDT Saba Spears MD POINT OF CARE TEST ORDERABLES Performing Organization Address City/[facility]/ZIP Co de Phone Number [facility] [place] [address] * POC, GLUCOSE (05/20/2024 7:24 PM EDT) Glucometer, POC 166 65 - 199 mg/dL 05/20/2024 7:24 PM EDT [facility] Comment:Supplemental ranges: <140 mg/dL before meals <180 mg/dL all other times of the day. Blood CAPILLARY BLOOD / Unknown 05/20/2024 7:24 PM EDT 05/20/2024 7:25 PM EDT Saba Spears MD POINT OF CARE TEST ORDERABLES Performing Organization Address City/[facility]/ZIP Co de Phone Number [facility] [place] [address] * POC, GLUCOSE (05/20/2024 4:24 PM EDT) Glucometer, POC 170 65 - 199 mg/dL 05/20/2024 4:24 PM EDT [facility] Comment:Supplemental ranges: <140 mg/dL before meals <180 mg/dL all other times of the day. Blood CAPILLARY BLOOD / Unknown 05/20/2024 4:24 PM EDT 05/20/2024 4:24 PM EDT Saba Spears MD POINT OF CARE TEST ORDERABLES Performing Organization Address City/[facility]/ZIP Co de Phone Number [facility] [place] [address] * (ABNORMAL) Hemogram (05/20/2024 12:35 PM EDT) Pathologist Kavin White Blood Cell 14.66(H) 4.00 - 9.50 x10(3)/mc L 05/20/2024 12:50 PM EDT [facility] Red Blood Cell 2.81(L) 4.58 - 5.54 x10(6)/mc L 05/20/2024 12:50 PM EDT [facility] Hemoglobin 8.4(L) 13.7 - 16.5 g/dL 05/20/2024 12:50 PM EDT [facility] Hematocrit 26.2(L) 40.5 - 48.5 % 05/20/2024 12:50 PM EDT [facility] Mean Cell Volume 93.2(H) 82.9 - 93.1 fL 05/20/2024 12:50 PM EDT [facility] Mean Cell Hemoglobin 29.9 27.5 - 32.1 pg 05/20/2024 12:50 PM EDT [facility] Mean Cell Hemoglobin Concentration 32.1 32.0 - 35.7 g/dL 05/20/2024 12:50 PM EDT [facility] Platelet 416(H) 145 - 357 x10(3)/mc L 05/20/2024 12:50 PM EDT [facility] Mean Platelet Volume 10.4 7.6 - 12.9 fL 05/20/2024 12:50 PM EDT [facility] RDW Standard Deviation 52.9(H) 36.0 - 45.0 fL 05/20/2024 12:50 PM EDT [facility] RDW coefficient of variation 15.6(H) 11.4 - 13.8 % 05/20/2024 12:50 PM EDT [facility] NRBC% auto 0.0 % 05/20/2024 12:50 PM EDT [facility] NRBC Absolute 0.00 0.00 - 0.00 x10(3)/mc L 05/20/2024 12:50 PM EDT [facility] Blood VENOUS BLOOD SPECIMEN / Unknown IP Care Team Draw / Unknown 05/20/2024 12:35 PM EDT 05/20/2024 12:43 PM EDT Saba Spears MD HEMATOLOGY ORDERABL ES [facility] [place] [address] * POC, GLUCOSE (05/20/2024 11:52 AM EDT) Glucometer, POC 176 65 - 199 mg/dL 05/20/2024 11:52 AM EDT [facility] Comment:Supplemental ranges: <140 mg/dL before meals <180 mg/dL all other times of the day. Blood CAPILLARY BLOOD / Unknown 05/20/2024 11:52 AM EDT 05/20/2024 11:52 AM EDT Saba Spears MD POINT OF CARE TEST ORDERABLES [facility] [place] [address] * US Retroperitoneal Complete (05/20/2024 10:36 AM EDT) WORKSTATION ID [id number] RAD Anatomical Region Laterality Modality Abdomen Ultrasound [...] have questions, please contact the health healthcare management that requested your imaging first. ?Teofilo Ruiz, Staff Physician Electronically Signed Final Report ?? 05/20/2024 11:36 am Narrative 05/20/2024 11:37 AM EDT Renal ? (Signed Final 05/20/2024 11:36 am) PATIENT INFO: ID #: ? [id number] ?: ??[birth year] (69 yrs)(M) Name: ? JOSSY SHANKS ? Visit Date: 05/20/2024 10:34 am PERFORMED BY: Attending: ?Joseph SOTOMAYOR, Teofilo Flores Resident: ? Kuldeep SOTOMAYOR, Trinidad Wright Performed By: ? Lulu Shin RDMS Referred By: ?SABA SPEARS Location: ? [place] SERVICE(S) PROVIDED: URETRO - Retroperitoneal Complete - [id number] ? [id number] INDICATIONS: CKD, increase BUN TECHNIQUE/SCAN QUALITY: Scan [...] 05/20/2024 11:36 am) PATIENT INFO: ID #: [id number] : [birth year] (69 yrs)(M) Name: JOSSY SHANKS Visit Date: 05/20/2024 10:34 am PERFORMED BY: Attending: Teofilo Ruiz MD Resident: Trinidad Light MD Performed By: Lulu Shin RDMS Referred By: SABA SPEARS Location: [place] SERVICE(S) PROVIDED: URETRO - Retroperitoneal Complete - [id number] INDICATIONS: CKD, increase BUN TECHNIQUE/SCAN QUALITY: Scan [...] have questions, please contact the health healthcare management that requested your imaging first. Teofilo Ruiz, Staff Physician Electronically Signed Final Report 05/20/2024 11:36 am Saba Spears MD IMG US GEN ORDERABL ES * POC, GLUCOSE (05/20/2024 8:03 AM EDT) Glucometer, POC 180 65 - 199 mg/dL 05/20/2024 8:03 AM EDT [facility] Comment:Supplemental ranges: <140 mg/dL before meals <180 mg/dL all other times of the day. Blood CAPILLARY BLOOD / Unknown 05/20/2024 8:03 AM EDT 05/20/2024 8:03 AM EDT Saba Spears MD POINT OF CARE TEST ORDERABLES Performing Organization Address [facility] de Phone Number [facility] [place] [place] [address] * Magnesium (05/20/2024 4:27 AM EDT) Magnesium 0.99 0.69 - 1.07 mMol/L 05/20/2024 5:27 AM EDT [facility] Blood VENOUS BLOOD SPECIMEN / Unknown IP Care Team Draw / Unknown 05/20/2024 4:27 AM EDT 05/20/2024 4:52 AM EDT Mary De La Fuente MD CHEMISTRY ORDERABL ES Performing Organization Address [facility] de Phone Number [facility] [place] [address] * (ABNORMAL) Phosphorus (05/20/2024 4:27 AM EDT) Phosphorus 5.1(H) 2.5 - 4.5 mg/dL 05/20/2024 5:27 AM EDT [facility] Blood VENOUS BLOOD SPECIMEN / Unknown IP Care Team Draw / Unknown 05/20/2024 4:27 AM EDT 05/20/2024 4:52 AM EDT Mary De La Fuente MD CHEMISTRY ORDERABL ES Performing Organization Address City/[facility]/ZIP Co de Phone Number [facility] [place] [address] * (ABNORMAL) Basic Metabolic Panel (non-fasting) (05/20/2024 4:27 AM EDT) Glucose 173 65 - 199 mg/dL 05/20/2024 6:27 AM [facility] Comment:Glucose Concentratio n >=200 mg/dL plus symptoms is consistent with Diabetes Mellitus. Blood Urea Nitrogen 121(H) 10 - 20 mg/dL 05/20/2024 6:27 AM EDT [facility] Creatinine 2.78(H) 0.80 - 1.50 mg/dL 05/20/2024 6:27 AM [facility] Sodium 138 135 - 145 mMol/L 05/20/2024 6:27 AM [facility] Potassium 5.4(H) 3.5 - 5.0 mMol/L 05/20/2024 6:27 AM [facility] Chloride 109(H) 98 - 107 mMol/L 05/20/2024 6:27 AM [facility] Carbon Dioxide 18(L) 22 - 31 mMol/L 05/20/2024 6:27 AM [facility] Anion Gap 11 5 - 15 mMol/L 05/20/2024 6:27 AM [facility] Calcium 9.4 8.5 - 10.5 mg/dL 05/20/2024 6:27 AM [facility] Est Glomerular Filtration Rate - Male 24 mL/min/1. 73 m?? 05/20/2024 6:27 AM [facility] Comment: This patient's estimated GFR [...] Fasting Status No 05/20/2024 6:27 AM EDT [facility] Blood VENOUS BLOOD SPECIMEN / Unknown IP Care Team Draw / Unknown 05/20/2024 4:27 AM EDT 05/20/2024 4:52 AM EDT Mary De La Fuente MD CHEMISTRY ORDERABL ES [facility] [place] [place] [address] * (ABNORMAL) CBC (with Diff) (05/20/2024 4:27 AM EDT) White Blood Cell 15.20(H) 4.00 - 9.50 x10(3)/mc L 05/20/2024 5:32 AM EDT [facility] Red Blood Cell 2.69(L) 4.58 - 5.54 x10(6)/mc L 05/20/2024 5:32 AM [facility] Hemoglobin 7.9(L) 13.7 - 16.5 g/dL 05/20/2024 5:32 AM [facility] Hematocrit 25.5(L) 40.5 - 48.5 % 05/20/2024 5:32 AM [facility] Mean Cell Volume 94.8(H) 82.9 - 93.1 fL 05/20/2024 5:32 AM [facility] Mean Cell Hemoglobin 29.4 27.5 - 32.1 pg 05/20/2024 5:32 AM [facility] Mean Cell Hemoglobin Concentration 31.0(L) 32.0 - 35.7 g/dL 05/20/2024 5:32 AM [facility] Platelet 403(H) 145 - 357 x10(3)/mc L 05/20/[facility]24 [facility] Mean Platelet Volume 10.7 7.6 - 12.9 fL 05/20/2024 5:32 AM [facility] RDW Standard Deviation 54.7(H) 36.0 - 45.0 fL 05/20/2024 5:32 AM [facility] RDW coefficient of variation 15.8(H) 11.4 - 13.8 % 05/20/2024 5:32 AM [facility] NRBC% auto 0.0 % 05/20/2024 5:32 AM [facility] NRBC Absolute 0.00 0.00 - 0.00 x10(3)/mc L 05/20/2024 5:32 AM [facility] Neutrophil % 82.1 % 05/20/2024 5:32 AM [facility] Neutrophil Absolute 12.49(H) 1.70 - 6.10 x10(3)/mc L 05/20/2024 5:32 AM [facility] Lymph % 6.3 % 05/20/2024 5:32 AM [facility] Lymph Absolute 0.96 0.90 - 3.20 x10(3)/mc L 05/20/2024 5:32 AM [facility] Monocyte % 8.7 % 05/20/2024 5:32 AM [facility] Monocyte Absolute 1.32(H) 0.30 - 0.90 x10(3)/mc L 05/20/2024 5:32 AM [facility] Eos % 2.0 % 05/20/2024 5:32 AM [facility] Eos Absolute 0.30 0.00 - 0.40 x10(3)/mc L 05/20/2024 5:32 AM [facility] Basophil % 0.3 % 05/20/2024 5:32 AM [facility] Baso Absolute 0.04 0.00 - 0.10 x10(3)/mc L 05/20/2024 5:32 AM EDT [facility] Immature Gran % 0.6 % 5:32 AM EDT [facility] Immature Gran Absolute 0.09(H) 0.00 - 0.04 x10(3)/mc L 05/20/2024 5:32 AM EDT [facility] Blood VENOUS BLOOD SPECIMEN / Unknown IP Care Team Draw / Unknown 05/20/2024 4:27 AM EDT 05/20/2024 4:52 AM EDT Mary De La Fuente MD HEMATOLOGY ORDERAB LES Performing Organization Address City/[facility]/ZIP Co de Phone Number [facility] [place] [address] * POC, GLUCOSE (05/20/2024 3:11 AM EDT) Glucometer, POC 163 65 - 199 mg/dL 05/20/2024 3:12 AM EDT [facility] Comment:Supplemental ranges: <140 mg/dL before meals <180 mg/dL all other times of the day. Blood CAPILLARY BLOOD / Unknown 05/20/2024 3:11 AM EDT 05/20/2024 3:12 AM EDT Saba Spears MD POINT OF CARE TEST ORDERABLES Performing Organization Address City/[facility]/ZIP Co de Phone Number [facility] [place] [address] * POC, GLUCOSE (05/19/2024 11:07 PM EDT) Glucometer, POC 136 65 - 199 mg/dL 05/19/2024 11:07 PM EDT [facility] Comment:Supplemental ranges: <140 mg/dL before meals <180 mg/dL all other times of the day. Blood CAPILLARY BLOOD / Unknown 05/19/2024 11:07 PM EDT 05/19/2024 11:07 PM EDT Saba Spears MD POINT OF CARE TEST ORDERABLES Performing Organization Address City/[facility]/ZIP Co de Phone Number [facility] [place] [address] * POC, GLUCOSE (05/19/2024 8:20 PM EDT) Glucometer, POC 150 65 - 199 mg/dL 05/19/2024 8:20 PM EDT [facility] Comment:Supplemental ranges: <140 mg/dL before meals <180 mg/dL all other times of the day. Blood CAPILLARY BLOOD / Unknown 05/19/2024 8:20 PM EDT 05/19/2024 8:21 PM EDT Saba Spears MD POINT OF CARE TEST ORDERABLES Performing Organization Address [facility]/ZIP Co de Phone Number [facility] [place] [place] [address] * (ABNORMAL) Iron and TIBC (05/19/2024 5:09 PM EDT) Iron 58 45 - 160 mcg/dL 05/19/2024 6:56 PM EDT [facility] Unsaturated Iron Binding Capacity 143 110 - 370 mcg/dL 05/19/2024 6:56 PM EDT [facility] TIBC 201(L) 250 - 450 mcg/dL 05/19/2024 6:56 PM EDT [facility] Iron Saturation 29 20 - 50 % 6:56 PM EDT [facility] Blood VENOUS BLOOD SPECIMEN / Unknown IP Care Team Draw / Unknown 05/19/2024 5:09 PM EDT 05/19/2024 5:43 PM EDT Saba Spears MD CHEMISTRY ORDERABLE S Performing Organization Address City/[facility]/ZIP Co de Phone Number [facility] [place] [place] [address] * PTH (05/19/2024 5:09 PM EDT) Parathyroid Hormone 27 15 - 65 pg/mL 05/19/2024 6:15 PM EDT [facility] Blood VENOUS BLOOD SPECIMEN / Unknown IP Care Team Draw / Unknown 05/19/2024 5:09 PM EDT 05/19/2024 5:43 PM EDT Saba Spears MD CHEMISTRY ORDERABLE S [facility] [place] [place] [address] * Ferritin (05/19/2024 5:08 PM EDT) Pathologist [facility] Ferritin 191 31 - 409 ng/ml 05/19/2024 6:24 PM EDT [facility] Blood VENOUS BLOOD SPECIMEN / Unknown IP Care Team Draw / Unknown 05/19/2024 5:08 PM EDT 05/19/2024 5:43 PM EDT Saba Spears MD CHEMISTRY ORDERABLE S [facility] [place] [address] * POC, GLUCOSE (05/19/2024 3:59 PM EDT) [facility] Glucometer, POC 185 65 - 199 mg/dL 05/19/2024 3:59 PM EDT [facility] Comment:Supplemental ranges: <140 mg/dL before meals <180 mg/dL all other times of the day. Blood CAPILLARY BLOOD / Unknown 05/19/2024 3:59 PM EDT 05/19/2024 3:59 PM EDT Saba Spears MD POINT OF CARE TEST ORDERABLES [facility] [place] [address] * POC, GLUCOSE (05/19/2024 12:32 PM EDT) Glucometer, POC 143 65 - 199 mg/dL 05/19/2024 12:32 PM EDT [facility] Comment:Supplemental ranges: <140 mg/dL before meals <180 mg/dL all other times of the day. Blood CAPILLARY BLOOD / Unknown 05/19/2024 12:32 PM EDT 05/19/2024 12:32 PM EDT Saba Spears MD POINT OF CARE TEST ORDERABLES [facility] [place] [address] * POC, GLUCOSE (05/19/2024 8:12 AM EDT) Glucometer, POC 181 65 - 199 mg/dL 05/19/2024 8:13 AM EDT [facility] Comment:Supplemental ranges: <140 mg/dL before meals <180 mg/dL all other times of the day. Blood CAPILLARY BLOOD / Unknown 05/19/2024 8:12 AM EDT 05/19/2024 8:13 AM EDT Saba Spears MD POINT OF CARE TEST ORDERABLES Performing Organization Address City/[facility]/ZIP Co de Phone Number [facility] [place] [address] * (ABNORMAL) Magnesium (05/19/2024 5:11 AM EDT) Magnesium 1.08(H) 0.69 - 1.07 mMol/L 05/19/2024 5:58 AM EDT [facility] Blood VENOUS BLOOD SPECIMEN / Unknown IP Care Team Draw / Unknown 05/19/2024 5:11 AM EDT 05/19/2024 5:30 AM EDT Mary De La Fuente MD CHEMISTRY ORDERABL ES Performing Organization Address City/[facility]/ZIP Co de Phone Number [facility] [place] [address] * (ABNORMAL) Phosphorus (05/19/2024 5:11 AM EDT) Phosphorus 5.1(H) 2.5 - 4.5 mg/dL 05/19/2024 5:58 AM EDT [facility] Blood VENOUS BLOOD SPECIMEN / Unknown IP Care Team Draw / Unknown 05/19/2024 5:11 AM EDT 05/19/2024 5:30 AM EDT Mary De La Fuente MD CHEMISTRY ORDERABL ES [facility] [place] [address] * (ABNORMAL) Basic Metabolic Panel (non-fasting) (05/19/2024 5:11 AM EDT) Glucose 162 65 - 199 mg/dL 05/19/2024 6:53 AM EDT [facility] Comment:Glucose Concentratio n >=200 mg/dL plus symptoms is consistent with Diabetes Mellitus. Blood Urea Nitrogen 118(H) 10 - 20 mg/dL 05/19/2024 6:53 AM EDT [facility] Creatinine 2.75(H) 0.80 - 1.50 mg/dL 05/19/2024 6:53 AM [facility] Sodium 136 135 - 145 mMol/L 05/19/2024 6:53 AM EDT [facility] Potassium 5.2(H) 3.5 - 5.0 mMol/L 05/19/2024 6:53 AM [facility] Chloride 108(H) 98 - 107 mMol/L 05/19/2024 6:53 AM [facility] Carbon Dioxide 18(L) 22 - 31 mMol/L 05/19/2024 6:[facility] Anion Gap 10 5 - 15 mMol/L 05/19/2024 6:53 AM [facility] Calcium 9.3 8.5 - 10.5 mg/dL 05/19/2024 6:53 AM EDT [facility] Est Glomerular Filtration Rate - Male 24 mL/min/1. 73 m?? 05/19/2024 6:53 AM EDT [facility] Comment: This patient's estimated [...] Fasting Status No 05/19/2024 6:53 AM EDT [facility] Blood VENOUS BLOOD SPECIMEN / Unknown IP Care Team Draw / Unknown 05/19/2024 5:11 AM EDT 05/19/2024 5:30 AM EDT Mary De La Fuente MD CHEMISTRY ORDERABL ES [facility] [place] [address] * (ABNORMAL) CBC (with Diff) (05/19/2024 5:11 AM EDT) White Blood Cell 12.77(H) 4.00 - 9.50 x10(3)/mc L 05/19/2024 5:37 AM EDT [facility] Red Blood Cell 3.11(L) 4.58 - 5.54 x10(6)/mc L 05/19/2024 5:37 AM EDT [facility] Hemoglobin 9.3(L) 13.7 - 16.5 g/dL 05/19/2024 5:37 AM EDT [facility] Hematocrit 28.9(L) 40.5 - 48.5 % 05/19/2024 5:37 AM EDT [facility] Mean Cell Volume 92.9 82.9 - 93.1 fL 05/19/2024 5:37 AM [facility] Mean Cell Hemoglobin 29.9 27.5 - 32.1 pg 05/19/2024 5:37 AM [facility] Mean Cell Hemoglobin Concentration 32.2 32.0 - 35.7 g/dL 05/19/2024 5:37 AM [facility] Platelet 379(H) 145 - 357 x10(3)/mc L 05/19/2024 5:37 AM [facility] Mean Platelet Volume 10.2 7.6 - 12.9 fL 05/19/2024 5:37 AM [facility] RDW Standard Deviation 53.1(H) 36.0 - 45.0 fL 05/19/2024 5:37 AM [facility] RDW coefficient of variation 15.8(H) 11.4 - 13.8 % 05/19/2024 5:37 AM [facility] NRBC% auto 0.0 % 05/19/2024 5:37 AM [facility] NRBC Absolute 0.00 0.00 - 0.00 x10(3)/mc L 05/19/2024 5:37 AM [facility] Neutrophil % 78.9 % 05/19/2024 5:37 AM [facility] Neutrophil Absolute 10.06(H) 1.70 - 6.10 x10(3)/mc L 05/19/2024 5:37 AM [facility] Lymph % 8.1 % 05/19/2024 5:37 AM [facility] Lymph Absolute 1.03 0.90 - 3.20 x10(3)/mc L 05/19/2024 5:37 AM [facility] Monocyte % 10.3 % 05/19/2024 5:37 AM [facility] Monocyte Absolute 1.32(H) 0.30 - 0.90 x10(3)/mc L 05/19/2024 5:37 AM EDT [facility] Eos % 1.6 % 05/19/2024 5:37 AM EDT [facility] Eos Absolute 0.21 0.00 - 0.40 x10(3)/mc L 05/19/2024 5:37 AM EDT [facility] Basophil % 0.2 % 05/19/2024 5:37 AM EDT [facility] Baso Absolute 0.03 0.00 - 0.10 x10(3)/mc L 05/19/2024 5:37 AM EDT [facility] Immature Gran % 0.9 % 5:37 AM EDT [facility] Immature Gran Absolute 0.12(H) 0.00 - 0.04 x10(3)/mc L 05/19/2024 5:37 AM EDT [facility] Blood VENOUS BLOOD SPECIMEN / Unknown IP Care Team Draw / Unknown 05/19/2024 5:11 AM EDT 05/19/2024 5:30 AM EDT Mary De La Fuente MD HEMATOLOGY ORDERAB LES [facility] [place] [address] * POC, GLUCOSE (05/19/2024 3:27 AM EDT) [facility] Signature Glucometer, POC 171 65 - 199 mg/dL 05/19/2024 3:28 AM EDT [facility] Comment:Supplemental ranges: <140 mg/dL before meals <180 mg/dL all other times of the day. Blood CAPILLARY BLOOD / Unknown 05/19/2024 3:27 AM EDT 05/19/2024 3:28 AM EDT Saba Spears MD POINT OF CARE TEST ORDERABLES [facility] [place] [address] * POC, GLUCOSE (05/19/2024 12:02 AM EDT) Glucometer, POC 183 65 - 199 mg/dL 05/19/2024 12:02 AM EDT [facility] Comment:Supplemental ranges: <140 mg/dL before meals <180 mg/dL all other times of the day. Blood CAPILLARY BLOOD / Unknown 05/19/2024 12:02 AM EDT 05/19/2024 12:02 AM EDT Saba Spears MD POINT OF CARE TEST ORDERABLES [facility] [place] [address] * (ABNORMAL) POC, GLUCOSE (05/18/2024 8:05 PM EDT) Glucometer, POC 207(H) 65 - 199 mg/dL 05/18/2024 8:06 PM EDT [facility] Comment:Supplemental ranges: <140 mg/dL before meals <180 mg/dL all other times of the day. Blood CAPILLARY BLOOD / Unknown 05/18/2024 8:05 PM EDT 05/18/2024 8:06 PM EDT Saba Spears MD POINT OF CARE TEST ORDERABLES [facility] [place] [place] [address] * POC, GLUCOSE (05/18/2024 6:14 PM EDT) Glucometer, POC 174 65 - 199 mg/dL 05/18/2024 6:15 PM EDT [facility] Comment:Supplemental ranges: <140 mg/dL before meals <180 mg/dL all other times of the day. Blood CAPILLARY BLOOD / Unknown 05/18/2024 6:14 PM EDT 05/18/2024 6:15 PM EDT Saba Spears MD POINT OF CARE TEST ORDERABLES [facility] [place] [address] * (ABNORMAL) Basic Metabolic Panel (05/18/2024 5:04 PM EDT) Glucose 170 65 - 199 mg/dL 05/18/2024 6:14 PM EDT [facility] Comment:Glucose Concentratio n >=200 mg/dL plus symptoms is consistent with Diabetes Mellitus. Blood Urea Nitrogen 116(H) 10 - 20 mg/dL 05/18/2024 6:14 PM EDT [facility] Creatinine 2.64(H) 0.80 - 1.50 mg/dL 05/18/2024 6:14 PM EDT [facility] Sodium 139 135 - 145 mMol/L 05/18/2024 6:14 PM T [facility] Potassium 5.4(H) 3.5 - 5.0 mMol/L 05/18/2024 6:14 PM [facility] Chloride 110(H) 98 - 107 mMol/L 05/18/2024 6:14 PM [facility] Carbon Dioxide 17(L) 22 - 31 mMol/L 05/[facility]/2024 [facility] Anion Gap 12 5 - 15 mMol/L 05/18/2024 6:14 PM [facility] Calcium 9.2 8.5 - 10.5 mg/dL 05/18/2024 6:[facility] Est Glomerular Filtration Rate - Male 25 mL/min/1. 73 m?? 05/18/2024 6:14 PM EDT [facility] Comment: This patient's estimated [...] Fasting Status No 05/18/2024 6:14 PM EDT [facility] Blood VENOUS BLOOD SPECIMEN / Unknown IP Care Team Draw / Unknown 05/18/2024 5:04 PM EDT 05/18/2024 5:11 PM EDT Saba Spears MD CHEMISTRY ORDERABLE S Performing Organization Address City/[facility]/ZIP Co de Phone Number [facility] [place] [address] * (ABNORMAL) POC, GLUCOSE (05/18/2024 11:45 AM EDT) Glucometer, POC 211(H) 65 - 199 mg/dL 05/18/2024 11:45 AM EDT [facility] Comment:Supplemental ranges: <140 mg/dL before meals <180 mg/dL all other times of the day. Blood CAPILLARY BLOOD / Unknown 05/18/2024 11:45 AM EDT 05/18/2024 11:45 AM EDT Saba Spears MD POINT OF CARE TEST ORDERABLES Performing Organization Address City/[facility]/ZIP Co de Phone Number [facility] [place] [address] * C diff Screen (05/18/2024 11:31 AM EDT) C Diff Interp Negative Negative 05/18/2024 3:02 PM EDT [facility] Comment:Clostridioides diffi cile is not present in the specimen. If patient is having diarrhea suspected to be from an infectious cause, then Soap & Water Contact Precautions are still required. If patient is having diarrhea with no suspected infectious cause use standard precautions. C Diff PCR Negative Negative, Indeterminate 05/18/2024 3:02 PM EDT [facility] Stool STOOL SPECIMEN / Unknown Non Blood Collection / Unknown 05/18/2024 11:31 AM EDT 05/18/2024 12:09 PM EDT Saba Spears MD MICROBIOLOGY - GENE RAL ORDERABLES Performing Organization Address City/[facility]/ZIP Co de Phone Number [facility] [place] [address] * C Diff PCR (05/18/2024 11:31 AM EDT) Stool STOOL SPECIMEN / Unknown Non Blood Collection / Unknown 05/18/2024 11:31 AM EDT 05/18/2024 12:09 PM EDT Saba Spears MD MICROBIOLOGY - GENE RAL ORDERABLES Performing Organization Address City/[facility]/ZIP Co de Phone Number [facility] [place] [address] * Creatinine, urine, random (05/18/2024 8:57 AM EDT) Creatinine, Urine 44 mg/dL 05/18/2024 9:36 AM EDT [facility] Urine URINE SPECIMEN / Unknown Non Blood Collection / Unknown 05/18/2024 8:57 AM EDT 05/18/2024 9:07 AM EDT Saba Spears MD URINE ORDERABLES Performing Organization Address City/[facility]/ZIP Co de Phone Number [facility] [place] [address] * Electrolytes, urine, random (05/18/2024 8:57 AM EDT) Sodium, Urine 50 mMol/L 05/18/2024 12:09 PM EDT [facility] Potassium, Urine 13 mMol/L 05/18/2024 12:09 PM EDT [facility] Chloride, Urine 35 mMol/L 05/18/2024 12:09 PM EDT [facility] Urine URINE SPECIMEN / Unknown Non Blood Collection / Unknown 05/18/2024 8:57 AM EDT 05/18/2024 9:07 AM EDT Saba Spears MD URINE ORDERABLES Performing Organization Address City/[facility]/ZIP Co de Phone Number [facility] [place] [address] * POC, GLUCOSE (05/18/2024 8:34 AM EDT) Glucometer, POC 182 65 - 199 mg/dL 05/18/2024 8:35 AM EDT [facility] Comment:Supplemental ranges: <140 mg/dL before meals <180 mg/dL all other times of the day. Blood CAPILLARY BLOOD / Unknown 05/18/2024 8:34 AM EDT 05/18/2024 8:35 AM EDT Saba Spears MD POINT OF CARE TEST ORDERABLES Performing Organization Address [facility]/ZIP Co de Phone Number [facility] [place] [address] * POC, GLUCOSE (05/18/2024 4:10 AM EDT) Glucometer, POC 163 65 - 199 mg/dL 05/18/2024 4:10 AM EDT [facility] Comment:Supplemental ranges: <140 mg/dL before meals <180 mg/dL all other times of the day. Blood CAPILLARY BLOOD / Unknown 05/18/2024 4:10 AM EDT 05/18/2024 4:11 AM EDT Saba Spears MD POINT OF CARE TEST ORDERABLES Performing Organization Address City/[facility]/ZIP Co de Phone Number [facility] [place] [address] * (ABNORMAL) CBC (with Diff) (05/18/2024 4:01 AM EDT) White Blood Cell 9.84(H) 4.00 - 9.50 x10(3)/mc L 05/18/2024 4:19 AM [facility] Red Blood Cell 3.24(L) 4.58 - 5.54 x10(6)/mc L 05/18/2024 4:19 AM [facility] Hemoglobin 9.6(L) 13.7 - 16.5 g/dL 05/18/2024 4:19 AM [facility] Hematocrit 31.4(L) 40.5 - 48.5 % 05/18/2024 4:19 AM [facility] Mean Cell Volume 96.9(H) 82.9 - 93.1 fL 05/18/2024 4:19 AM [facility] Mean Cell Hemoglobin 29.6 27.5 - 32.1 pg 05/18/2024 4:19 AM [facility] Mean Cell Hemoglobin Concentration 30.6(L) 32.0 - 35.7 g/dL 05/18/2024 4:19 AM [facility] Platelet 335 145 - 357 x10(3)/mc L 05/18/2024 4:19 AM [facility] Mean Platelet Volume 10.3 7.6 - 12.9 fL 05/18/2024 4:19 AM [facility] RDW Standard Deviation 56.4(H) 36.0 - 45.0 fL 05/18/2024 4:19 AM [facility] RDW coefficient of variation 15.7(H) 11.4 - 13.8 % 05/18/2024 4:19 AM [facility] NRBC% auto 0.2 % 05/18/2024 4:19 AM [facility] NRBC Absolute 0.02(H) 0.00 - 0.00 x10(3)/mc L 05/18/2024 4:19 AM [facility] Neutrophil % 76.5 % 05/18/2024 4:19 AM EDT [facility] Neutrophil Absolute 7.52(H) 1.70 - 6.10 x10(3)/mc L 05/18/2024 4:19 AM EDT [facility] Lymph % 8.0 % 05/18/2024 4:19 AM EDT [facility] Lymph Absolute 0.79(L) 0.90 - 3.20 x10(3)/mc L 05/18/2024 4:19 AM EDT [facility] Monocyte % 12.5 % 05/18/2024 4:19 AM EDT [facility] Monocyte Absolute 1.23(H) 0.30 - 0.90 x10(3)/mc L 05/18/2024 4:19 AM EDT [facility] Eos % 1.9 % 05/18/2024 4:19 AM EDT [facility] Eos Absolute 0.19 0.00 - 0.40 x10(3)/mc L 05/18/2024 4:19 AM EDT [facility] Basophil % 0.2 % 05/18/2024 4:19 AM EDT [facility] Baso Absolute 0.02 0.00 - 0.10 x10(3)/mc L 05/18/2024 4:19 AM EDT [facility] Immature Gran % 0.9 % 4:19 AM EDT [facility] Immature Gran Absolute 0.09(H) 0.00 - 0.04 x10(3)/mc L 05/18/2024 4:19 AM EDT [facility] Blood VENOUS BLOOD SPECIMEN / Unknown IP Care Team Draw / Unknown 05/18/2024 4:01 AM EDT 05/18/2024 4:13 AM EDT Mary De La Fuente MD HEMATOLOGY ORDERAB LES [facility] [place] [address] * (ABNORMAL) Magnesium (05/18/2024 4:00 AM EDT) Magnesium 1.09(H) 0.69 - 1.07 mMol/L 05/18/2024 10:11 AM EDT [facility] Blood VENOUS BLOOD SPECIMEN / Unknown IP Care Team Draw / Unknown 05/18/2024 4:00 AM EDT 05/18/2024 4:13 AM EDT Mary De La Fuente MD CHEMISTRY ORDERABL ES Performing Organization Address [facility]/ZIP Co de Phone Number [facility] [place] [place] [address] * (ABNORMAL) Phosphorus (05/18/2024 4:00 AM EDT) Pathologist [facility] Phosphorus 4.7(H) 2.5 - 4.5 mg/dL 05/18/2024 10:11 AM EDT [facility] Blood VENOUS BLOOD SPECIMEN / Unknown IP Care Team Draw / Unknown 05/18/2024 4:00 AM EDT 05/18/2024 4:13 AM EDT Mary De La Fuente MD CHEMISTRY ORDERABL ES Performing Organization Address [facility] Co de Phone Number [facility] [place] [place] [address] * (ABNORMAL) Basic Metabolic Panel (non-fasting) (05/18/2024 4:00 AM EDT) Glucose 144 65 - 199 mg/dL 05/18/2024 10:11 AM EDT [facility] Comment:Glucose Concentratio n >=200 mg/dL plus symptoms is consistent with Diabetes Mellitus. Blood Urea Nitrogen 105(H) 10 - 20 mg/dL 05/18/2024 10:11 AM EDT [facility] Creatinine 2.69(H) 0.80 - 1.50 mg/dL 05/18/2024 10:11 AM EDT [facility] Sodium 134(L) 135 - 145 mMol/L 05/18/2024 10:11 AM EDT [facility] Potassium 5.6(H) 3.5 - 5.0 mMol/L 05/18/2024 10:11 AM [facility] Chloride 107 98 - 107 mMol/L 05/18/2024 10:11 AM [facility] Carbon Dioxide 11(L) 22 - 31 mMol/L 05/18/2024 10:11 AM [facility] Anion Gap 16(H) 5 - 15 mMol/L 05/18/2024 10:11 AM [facility] Calcium 8.8 8.5 - 10.5 mg/dL 05/18/2024 10:11 AM [facility] Est Glomerular Filtration Rate - Male 25 mL/min/1. 73 m?? 05/18/2024 10:11 AM [facility] Comment: This patient's estimated GFR [...] Fasting Status No 05/18/2024 10:11 AM EDT [facility] Blood VENOUS BLOOD SPECIMEN / Unknown IP Care Team Draw / Unknown 05/18/2024 4:00 AM EDT 05/18/2024 4:13 AM EDT Mary De La Fuente MD CHEMISTRY ORDERABL ES [facility] [place] [place] [address] * (ABNORMAL) POC, GLUCOSE (05/17/2024 11:30 PM EDT) Glucometer, POC 232(H) 65 - 199 mg/dL 05/17/2024 11:30 PM EDT [facility] Comment:Supplemental ranges: <140 mg/dL before meals <180 mg/dL all other times of the day. Blood CAPILLARY BLOOD / Unknown 05/17/2024 11:30 PM EDT 05/17/2024 11:30 PM EDT Saba Speras MD POINT OF CARE TEST ORDERABLES [facility] [place] [address] * POC, GLUCOSE (05/17/2024 8:12 PM EDT) Glucometer, POC 161 65 - 199 mg/dL 05/17/2024 8:12 PM EDT [facility] Comment:Supplemental ranges: <140 mg/dL before meals <180 mg/dL all other times of the day. Blood CAPILLARY BLOOD / Unknown 05/17/2024 8:12 PM EDT 05/17/2024 8:13 PM EDT Saba Spears MD POINT OF CARE TEST ORDERABLES Performing Organization Address City/[facility]/ZIP Co de Phone Number [facility] [place] [address] * POC, GLUCOSE (05/17/2024 5:35 PM EDT) Glucometer, POC 167 65 - 199 mg/dL 05/17/2024 5:35 PM EDT [facility] Comment:Supplemental ranges: <140 mg/dL before meals <180 mg/dL all other times of the day. Blood CAPILLARY BLOOD / Unknown 05/17/2024 5:35 PM EDT 05/17/2024 5:35 PM EDT Saba Spears MD POINT OF CARE TEST ORDERABLES [facility] [place] [place] [address] * POC, GLUCOSE (05/17/2024 12:50 PM EDT) Glucometer, POC 147 65 - 199 mg/dL 05/17/2024 12:50 PM EDT [facility] Comment:Supplemental ranges: <140 mg/dL before meals <180 mg/dL all other times of the day. Blood CAPILLARY BLOOD / Unknown 05/17/2024 12:50 PM EDT 05/17/2024 12:50 PM EDT Saba Spears MD POINT OF CARE TEST ORDERABLES [facility] [place] [place] [address] * POC, GLUCOSE (05/17/2024 8:20 AM EDT) Glucometer, POC 139 65 - 199 mg/dL 05/17/2024 8:21 AM EDT [facility] Comment:Supplemental ranges: <140 mg/dL before meals <180 mg/dL all other times of the day. Blood CAPILLARY BLOOD / Unknown 05/17/2024 8:20 AM EDT 05/17/2024 8:21 AM EDT Treva Diaz MD POINT OF CARE TEST ORDERABLES [facility] [place] [address] * (ABNORMAL) Magnesium (05/17/2024 5:49 AM EDT) Magnesium 1.14(H) 0.69 - 1.07 mMol/L 05/17/2024 6:58 AM EDT [facility] Blood IP Care Team w / Unknown 05/17/2024 5:49 AM EDT 05/17/2024 6:13 AM EDT Mary De La Fuente MD CHEMISTRY ORDERABL ES Performing Organization Address City/[facility]/ZIP Co de Phone Number [facility] [place] [place] [address] * (ABNORMAL) Phosphorus (05/17/2024 5:49 AM EDT) Phosphorus 5.6(H) 2.5 - 4.5 mg/dL 05/17/2024 6:58 AM EDT [facility] Blood IP Care Team w / Unknown 05/17/2024 5:49 AM EDT 05/17/2024 6:13 AM EDT Mary De La Fuente MD CHEMISTRY ORDERABL ES Performing Organization Address [facility]/ZIP Co de Phone Number [facility] [place] [address] * (ABNORMAL) Basic Metabolic Panel (non-fasting) (05/17/2024 5:49 AM EDT) Glucose 131 65 - 199 mg/dL 05/17/2024 6:58 AM EDT [facility] Comment:Glucose Concentratio n >=200 mg/dL plus symptoms is consistent with Diabetes Mellitus. Blood Urea Nitrogen 86(H) 10 - 20 mg/dL 05/17/2024 6:58 AM EDT [facility] Creatinine 3.07(H) 0.80 - 1.50 mg/dL 05/17/2024 6:58 AM EDT [facility] Sodium 134(L) 135 - 145 mMol/L 05/17/2024 6:58 AM EDT [facility] Potassium 5.0 3.5 - 5.0 mMol/L 05/17/2024 6:58 AM EDT [facility] Chloride 103 98 - 107 mMol/L 05/17/2024 6:58 AM EDT [facility] Carbon Dioxide 21(L) 22 - 31 mMol/L 05/17/2024 6:58 AM EDT [facility] Anion Gap 10 5 - 15 mMol/L 05/17/2024 6:58 AM EDT [facility] Calcium 8.7 8.5 - 10.5 mg/dL 05/17/2024 6:58 AM EDT [facility] Est Glomerular Filtration Rate - Male 21 mL/min/1. 73 m?? 05/17/2024 6:58 AM EDT [facility] Comment: This patient's estimated [...] Fasting Status No 05/17/2024 6:58 AM EDT [facility] Blood IP Care Team w / Nick 05/17/2024 5:49 AM EDT 05/17/2024 6:13 AM EDT Mary De La Fuente MD CHEMISTRY ORDERABL ES [facility] [place] [address] * (ABNORMAL) CBC (with Diff) (05/17/2024 5:49 AM EDT) White Blood Cell 8.61 4.00 - 9.50 x10(3)/mc L 05/17/2024 6:28 AM EDT [facility] Red Blood Cell 3.54(L) 4.58 - 5.54 x10(6)/mc L 05/17/2024 6:28 AM EDT [facility] Hemoglobin 10.5(L) 13.7 - 16.5 g/dL 05/17/2024 6:28 AM EDT [facility] Hematocrit 33.9(L) 40.5 - 48.5 % 05/17/2024 6:28 AM [facility] Mean Cell Volume 95.8(H) 82.9 - 93.1 fL 05/17/2024 6:28 AM [facility] Mean Cell Hemoglobin 29.7 27.5 - 32.1 pg 05/17/2024 6:28 AM [facility] Mean Cell Hemoglobin Concentration 31.0(L) 32.0 - 35.7 g/dL 05/17/2024 6:28 AM [facility] Platelet 341 145 - 357 x10(3)/mc L 05/17/2024 6:28 AM [facility] Mean Platelet Volume 10.4 7.6 - 12.9 fL 05/17/2024 6:28 AM [facility] RDW Standard Deviation 56.5(H) 36.0 - 45.0 fL 05/17/2024 6:28 AM [facility] RDW coefficient of variation 15.7(H) 11.4 - 13.8 % 05/17/2024 6:28 AM [facility] NRBC% auto 0.0 % 05/17/2024 6:28 AM [facility] NRBC Absolute 0.00 0.00 - 0.00 x10(3)/mc L 05/17/2024 6:28 AM [facility] Neutrophil % 76.3 % 05/17/2024 6:28 AM [facility] Neutrophil Absolute 6.57(H) 1.70 - 6.10 x10(3)/mc L 05/17/2024 6:28 AM [facility] Lymph % 9.9 % 05/17/2024 6:28 AM [facility] Lymph Absolute 0.85(L) 0.90 - 3.20 x10(3)/mc L 05/17/2024 6:28 AM [facility] Monocyte % 11.7 % 05/17/2024 6:28 AM EDT [facility] Monocyte Absolute 1.01(H) 0.30 - 0.90 x10(3)/mc L 05/17/2024 6:28 AM EDT [facility] Eos % 0.8 % 05/17/2024 6:28 AM EDT [facility] Eos Absolute 0.07 0.00 - 0.40 x10(3)/mc L 05/17/2024 6:28 AM EDT [facility] Basophil % 0.1 % 05/17/2024 6:28 AM EDT [facility] Baso Absolute 0.01 0.00 - 0.10 x10(3)/mc L 05/17/2024 6:28 AM EDT [facility] Immature Gran % 1.2 % 6:28 AM EDT [facility] Immature Gran Absolute 0.10(H) 0.00 - 0.04 x10(3)/mc L 05/17/2024 6:28 AM EDT [facility] Blood IP Care Team Dra reilly / Nick 05/17/2024 5:49 AM EDT 05/17/2024 6:13 AM EDT Mary De La Fuente MD HEMATOLOGY ORDERAB LES [facility] [place] [address] * Vancomycin Level, Random (05/17/2024 5:49 AM EDT) Vancomycin, Random 22.4 mg/L 2023 6:58 AM EDT [facility] Comment:This level is for de termination of the patient's vancomycin lcko-wctgh-uaw-curve (AUC) value. Contact the inpatient pharmacy for interpretation. Blood IP Care Team Dra reilly / Nick 05/17/2024 5:49 AM EDT 05/17/2024 6:13 AM EDT Treva Diaz MD CHEMISTRY ORDERABL ES Performing Organization Address [facility] Co de Phone Number [facility] [place] [address] * POC, GLUCOSE (05/17/2024 3:54 AM EDT) Glucometer, POC 135 65 - 199 mg/dL 05/17/2024 3:55 AM EDT [facility] Comment:Supplemental ranges: <140 mg/dL before meals <180 mg/dL all other times of the day. Blood CAPILLARY BLOOD / Unknown 05/17/2024 3:54 AM EDT 05/17/2024 3:55 AM EDT Treva Diaz MD POINT OF CARE TEST ORDERABLES Performing Organization Address [facility] Co de Phone Number [facility] [place] [place] [address] * POCT Glucose (05/16/2024 11:46 PM EDT) Glucose, POC 148 65 - 199 mg/dL [facility] Comment: Supplemental ranges: <140 mg/dL before meals <180 mg/dL all other times of the day Blood 05/16/2024 11:4 6 PM EDT 05/16/2024 11:46 PM EDT Treva Diaz MD POINT OF CARE TEST ORDERABLES Performing Organization Address City/[facility]/ZIP Co de Phone Number [facility] [place] [address] * POCT Glucose (05/16/2024 9:06 PM EDT) Glucose, POC 191 65 - 199 mg/dL [facility] Comment: Supplemental ranges: <140 mg/dL before meals <180 mg/dL all other times of the day Blood 05/16/2024 9:06 PM EDT 05/16/2024 9:06 PM EDT Treva Diaz MD POINT OF CARE TEST ORDERABLES [facility] [place] [place] [address] * POCT Glucose (05/16/2024 8:04 PM EDT) Glucose, POC 199 65 - 199 mg/dL [facility] Comment: Supplemental ranges: <140 mg/dL before meals <180 mg/dL all other times of the day Blood 05/16/2024 8:04 PM EDT 05/16/2024 8:04 PM EDT Treva Diaz MD POINT OF CARE TEST ORDERABLES Performing Organization Address City/[facility]/ZIP Co de Phone Number [facility] [place] [address] * POCT Glucose (05/16/2024 4:51 PM EDT) Glucose, POC 162 65 - 199 mg/dL [facility] Comment: Supplemental ranges: <140 mg/dL before meals <180 mg/dL all other times of the day Blood 05/16/2024 4:51 PM EDT 05/16/2024 4:51 PM EDT Treva Diaz MD POINT OF CARE TEST ORDERABLES [facility] [place] [address] * POCT Glucose (05/16/2024 12:48 PM EDT) Glucose, POC 153 65 - 199 mg/dL [facility] Comment: Supplemental ranges: <140 mg/dL before meals <180 mg/dL all other times of the day Blood 05/16/2024 12:4 8 PM EDT 05/16/2024 12:48 PM EDT Treva Diaz MD POINT OF CARE TEST ORDERABLES [facility] [place] [address] * POCT Glucose (05/16/2024 8:45 AM EDT) Pathologist [facility] Glucose, POC 165 65 - 199 mg/dL [facility] Comment: Supplemental ranges: <140 mg/dL before meals <180 mg/dL all other times of the day Blood 05/16/2024 8:45 AM EDT 05/16/2024 8:45 AM EDT Treva Diaz MD POINT OF CARE TEST ORDERABLES Performing Organization Address City/[facility]/ZIP Co de Phone Number [facility] [place] [address] * (ABNORMAL) Differential, Automated (05/16/2024 5:14 AM EDT) [facility] Neutrophil % 79.4 % [facility] Neutrophil Absolute 9.22(H) 1.70 - 6.10 x10(3)/mc L [facility] Lymph % 6.6 % [facility] Lymphocytes Abs 0.8(L) 0.9 - 3.2 x10(3)/mc L [facility] Monocyte % 9.5 % [facility] Monocyte Abs 1.1(H) 0.3 - 0.9 x10(3)/mc L [facility] Eos % 0.0 % [facility] Eosinophils Abs 0.0 0.0 - 0.4 x10(3)/mc L [facility] Basophil % 0.2 % [facility] Baso Absolute 0.0 0.0 - 0.1 x10(3)/mc L [facility] Immature Gran % 4.30 % [facility] Comment: Immature granulocytes(IG's)percentage and absolute count will include metamyelocytes, myelocytes, and promyelocytes. Blood smears from CBCs yielding IG's will be scanned manually for concordance. If this scan disagrees with the automated IG or if promyelocytes are noted, a manual differential will be performed. Immature Gran Absolute 0.50(H) 0.00 - 0.04 x10(3)/ L [facility] Blood 05/16/2024 5:14 AM EDT 05/16/2024 5:38 AM EDT Narrative Resulting Agency Comment Spec In Lab Carlotta Davis MD HEMATOLOGY OR DERABLES [facility] [place] [place] [address] * (ABNORMAL) Hemogram (05/16/2024 5:14 AM EDT) White Blood Cell 11.6(H) 4.0 - 9.5 x10(3)/[facility] Red Blood Cell 3.59(L) 4.58 - 5.54 x10(6)/ L [facility] Hemoglobin 10.5(L) 13.7 - 16.5 g/dL [facility] Hematocrit 33.8(L) 40.5 - 48.5 % [facility] Mean Cell Volume 94.2(H) 82.9 - 93.1 fL [facility] Mean Cell Hemoglobin 29.2 27.5 - 32.1 pg [facility] Mean Cell Hemoglobin Concentration 31.1(L) 32.0 - 35.7 g/dL [facility] Platelet 317 145 - 357 x10(3)/[facility] RDW Standard Deviation 55.1(H) 36.0 - 45.0 fL [facility] RDW coefficient of variation 15.9(H) 11.4 - 13.8 % [facility] Mean Platelet Volume 10.6 7.6 - 12.9 fL [facility] NRBC% auto 0.0 % [facility] NRBC Absolute 0.000 0.000 - 0.000 x10(3)/mc L [facility] Blood 05/16/2024 5:14 AM EDT 05/16/2024 5:38 AM EDT Narrative Resulting Agency Comment Spec In Lab Carlotta Davis MD HEMATOLOGY OR DERABLES Performing Organization Address City/[facility]/ZIP Co de Phone Number [facility] [place] [address] * (ABNORMAL) Magnesium (05/16/2024 5:14 AM EDT) Magnesium 1.22(H) 0.69 - 1.07 mmol/L [facility] Blood 05/16/2024 5:14 AM EDT 05/16/2024 5:38 AM EDT Narrative Resulting Agency Comment Spec In Lab Mary De La Fuente MD CHEMISTRY ORDERABL ES Performing Organization Address [facility] Co de Phone Number [facility] [place] [address] * (ABNORMAL) Phosphorus (05/16/2024 5:14 AM EDT) Phosphorus 6.3(H) 2.5 - 4.5 mg/dL [facility] Blood 05/16/2024 5:14 AM EDT 05/16/2024 5:38 AM EDT Narrative Resulting Agency Comment Spec In Lab Mary De La Fuente MD CHEMISTRY ORDERABL ES Performing Organization Address [facility] Co de Phone Number [facility] [place] [place] [address] * (ABNORMAL) Basic Metabolic Panel (non-fasting) (05/16/2024 5:14 AM EDT) Glucose 154 65 - 199 mg/dL [facility] Comment:Diabetes: >=200 mg/d L plus symptoms Blood Urea Nitrogen 74(H) 10 - 20 mg/dL [facility] Creatinine 2.88(H) 0.80 - 1.50 mg/dL [facility] Sodium 133(L) 135 - 145 mmol/L [facility] Potassium 5.0 3.5 - 5.0 mmol/L [facility] Comment: Please note: ??Patients with WBC >100,000 may have falsely elevated Potassium levels. ??For accurate Potassium quantification in these patients send serum separator tube (gold top) for subsequent determinations. ??Contact the Clinical Chemistry Laboratory if there are any questions. Chloride 101 98 - 107 mmol/L [facility] Carbon Dioxide 21(L) 22 - 31 mmol/L [facility] Anion Gap 11 5 - 15 mmol/L [facility] Calcium 8.8 8.5 - 10.5 mg/dL [facility] Est Glomerular Filtration Rate 23(L) >=60 mL/min/1. 73 m?? [facility] Comment: This patient's estimated [...] De La Fuente MD CHEMISTRY ORDERABL ES [facility] [place] [address] * Vancomycin Level, Random (05/16/2024 5:14 AM EDT) Vancomycin, Random 29.1 mg/L [facility] Comment: This level is for determination of the patient's vancomycin uthd-wmcrz-obj-curve (AUC) value. Contact the inpatient pharmacy for interpretation. Blood 05/16/2024 5:14 AM EDT 05/16/2024 5:38 AM EDT Treva Diaz MD CHEMISTRY ORDERABL ES Performing Organization Address City/[facility]/ZIP Co de Phone Number [facility] [place] [address] * POCT Glucose (05/16/2024 3:53 AM EDT) Glucose, POC 166 65 - 199 mg/dL [facility] Comment: Supplemental ranges: <140 mg/dL before meals <180 mg/dL all other times of the day Blood 05/16/2024 3:53 AM EDT 05/16/2024 3:53 AM EDT Treva Diaz MD POINT OF CARE TEST ORDERABLES Performing Organization Address [facility]/ZIP Co de Phone Number [facility] [place] [address] * POCT Glucose (05/15/2024 11:41 PM EDT) Glucose, POC 171 65 - 199 mg/dL [facility] Comment: Supplemental ranges: <140 mg/dL before meals <180 mg/dL all other times of the day Blood 05/15/2024 11:4 1 PM EDT 05/15/2024 11:41 PM EDT Treva Diaz MD POINT OF CARE TEST ORDERABLES Performing Organization Address City/[facility]/ZIP Co de Phone Number [facility] [place] [address] * POCT Glucose (05/15/2024 10:32 PM EDT) Glucose, POC 183 65 - 199 mg/dL [facility] Comment: Supplemental ranges: <140 mg/dL before meals <180 mg/dL all other times of the day Blood 05/15/2024 10:3 2 PM EDT 05/15/2024 10:32 PM EDT Treva Diaz MD POINT OF CARE TEST ORDERABLES [facility] [place] [place] [address] * POCT Glucose (05/15/2024 7:53 PM EDT) Pathologist [facility] Glucose, POC 187 65 - 199 mg/dL [facility] Comment: Supplemental ranges: <140 mg/dL before meals <180 mg/dL all other times of the day Blood 05/15/2024 7:53 PM EDT 05/15/2024 7:53 PM EDT Treva Diaz MD POINT OF CARE TEST ORDERABLES [facility] [place] [address] * MRSA PCR Screen [place] [place] (05/15/2024 4:15 PM EDT) [facility] MRSA PCR Negative Negative [facility] MRSA (Interp) Methicillin-resist ant Staphylococcus aureus (MRSA) is NOT DETECTED The MRSA target DNA sequences (mec and SCC) were not detected within the acceptable ranges using the Xpert MRSA NxG on the GeneXpert Dx System ([employer]). This suggests the absence of MRSA in the patient specimen submitted for testing. This test is cleared by the U.S. Food and Drug Administration for clinical use and its performance characteristics have been verified by the [facility] at [facility]. This result does not rule out the presence of any other organisms. Rare false negative results may occur if MRSA is present at low concentrations with much higher concentrations of other organisms including MRSE or S. aureus with an empty SCC cassette. [facility] Comment: [VERIFIED DATE]05.15.24 Verified By:Lupe Jensen (Electronic Signature) Nasopharyngeal Swab 05/15/20 4:15 PM EDT 05/15/2024 6:28 PM EDT Comment:Specimen Type->Nasop haryngeal Swab Narrative Resulting Agency Comment Spec In Lab Treva Diaz MD MOLECULAR ORDERABL ES Performing Organization Address City/[facility]/ZIP Co de Phone Number [facility] [place] [address] * (ABNORMAL) POCT Glucose (05/15/2024 3:20 PM EDT) Glucose, POC 224(H) 65 - 199 mg/dL [facility] Comment: Supplemental ranges: <140 mg/dL before meals <180 mg/dL all other times of the day Blood 05/15/2024 3:20 PM EDT 05/15/2024 3:20 PM EDT Treva Diaz MD POINT OF CARE TEST ORDERABLES Performing Organization Address [facility] Co de Phone Number [facility] [place] [address] * (ABNORMAL) POCT Glucose (05/15/2024 11:39 AM EDT) Glucose, POC 213(H) 65 - 199 mg/dL [facility] Comment: Supplemental ranges: <140 mg/dL before meals <180 mg/dL all other times of the day Blood 05/15/2024 11:3 9 AM EDT 05/15/2024 11:39 AM EDT Treva Diaz MD POINT OF CARE TEST ORDERABLES Performing Organization Address City/[facility]/ZIP Co de Phone Number [facility] [place] [address] * POCT Glucose (05/15/2024 8:02 AM EDT) Glucose, POC 190 65 - 199 mg/dL [facility] Comment: Supplemental ranges: <140 mg/dL before meals <180 mg/dL all other times of the day Blood 05/15/2024 8:02 AM EDT 05/15/2024 8:02 AM EDT Treva Diaz MD POINT OF CARE TEST ORDERABLES Performing Organization Address City/State/[facility] Co de Phone Number [facility] [place] [address] * (ABNORMAL) Differential, Automated (05/15/2024 5:12 AM EDT) [facility] Neutrophil % 85.3 % [facility] Neutrophil Absolute 11.37(H) 1.70 - 6.10 x10(3)/mc L [facility] Lymph % 3.7 % [facility] Lymphocytes Abs 0.5(L) 0.9 - 3.2 x10(3)/mc L [facility] Monocyte % 9.1 % [facility] Monocyte Abs 1.2(H) 0.3 - 0.9 x10(3)/mc L [facility] Eos % 0.0 % [facility] Eosinophils Abs 0.0 0.0 - 0.4 x10(3)/mc L [facility] Basophil % 0.1 % [facility] Baso Absolute 0.0 0.0 - 0.1 x10(3)/mc L [facility] Immature Gran % 1.80 % [facility] Comment: Immature granulocytes(IG's)percentage and absolute count will include metamyelocytes, myelocytes, and promyelocytes. Blood smears from CBCs yielding IG's will be scanned manually for concordance. If this scan disagrees with the automated IG or if promyelocytes are noted, a manual differential will be performed. Immature Gran Absolute 0.24(H) 0.00 - 0.04 x10(3)/mc L [facility] Blood 05/15/2024 5:12 AM EDT 05/15/2024 5:38 AM EDT Narrative Resulting Agency Comment Spec In Lab Carlotta Davis MD HEMATOLOGY OR DERABLES [facility] [place] [place] [address] * (ABNORMAL) Hemogram (05/15/2024 5:12 AM EDT) White Blood Cell 13.4(H) 4.0 - 9.5 x10(3)/mc L [facility] Red Blood Cell 3.58(L) 4.58 - 5.54 x10(6)/mc L [facility] Hemoglobin 10.9(L) 13.7 - 16.5 g/dL [facility] Hematocrit 34.1(L) 40.5 - 48.5 % [facility] Mean Cell Volume 95.3(H) 82.9 - 93.1 fL [facility] Mean Cell Hemoglobin 30.4 27.5 - 32.1 pg [facility] Mean Cell Hemoglobin Concentration 32.0 32.0 - 35.7 g/dL [facility] [facility] Platelet 227 145 - 357 x10(3)/mc L [facility] RDW Standard Deviation 55.8(H) 36.0 - 45.0 [facility] RDW coefficient of variation 15.8(H) 11.4 - 13.8 % [facility] Mean Platelet Volume 10.7 7.6 - 12.9 fL [facility] NRBC% auto 0.0 % [facility] NRBC Absolute 0.000 0.000 - 0.000 x10(3)/mc L [facility] Blood 05/15/2024 5:12 AM EDT 05/15/2024 5:38 AM EDT Narrative Resulting Agency Comment Spec In Lab Carlotta Davis MD HEMATOLOGY OR DERABLES Performing Organization Address [facility]/ZIP Co de Phone Number [facility] [place] [address] * (ABNORMAL) Magnesium (05/15/2024 5:12 AM EDT) Magnesium 1.21(H) 0.69 - 1.07 mmol/L [facility] Blood 05/15/2024 5:12 AM EDT 05/15/2024 5:38 AM EDT Narrative Resulting Agency Comment Spec In Lab Mary De La Fuente MD CHEMISTRY ORDERABL ES Performing Organization Address [facility] Co de Phone Number [facility] [place] [address] * (ABNORMAL) Phosphorus (05/15/2024 5:12 AM EDT) Phosphorus 6.5(H) 2.5 - 4.5 mg/dL [facility] Comment:result rechecked-HN Blood 05/15/2024 5:12 AM EDT 05/15/2024 5:38 AM EDT Narrative Resulting Agency Comment Spec In Lab Mary De La Fuente MD CHEMISTRY ORDERABL ES Performing Organization Address [facility] Co de Phone Number [facility] [place] [address] * (ABNORMAL) Basic Metabolic Panel (non-fasting) (05/15/2024 5:12 AM EDT) Glucose 217(H) 65 - 199 mg/dL [facility] Comment:Diabetes: >=200 mg/d L plus symptoms Blood Urea Nitrogen 58(H) 10 - 20 mg/dL [facility] Creatinine 2.46(H) 0.80 - 1.50 mg/dL [facility] Comment:result rechecked-HN Sodium 135 135 - 145 mmol/L [facility] Potassium 5.2(H) 3.5 - 5.0 mmol/L [facility] Comment: Please note: ??Patients with WBC >100,000 may have falsely elevated Potassium levels. ??For accurate Potassium quantification in these patients send serum separator tube (gold top) for subsequent determinations. ??Contact the Clinical Chemistry Laboratory if there are any questions. Chloride 100 98 - 107 mmol/L [facility] Carbon Dioxide 23 22 - 31 mmol/L [facility] Anion Gap 12 5 - 15 mmol/L [facility] Calcium 8.8 8.5 - 10.5 mg/dL [facility] Est Glomerular Filtration Rate 27(L) >=60 mL/min/1. 73 m?? [facility] Comment: This patient's estimated [...] De La Fuente MD CHEMISTRY ORDERABL ES [facility] [place] [address] * (ABNORMAL) POCT Glucose (05/15/2024 4:55 AM EDT) Glucose, POC 223(H) 65 - 199 mg/dL [facility] Comment: Supplemental ranges: <140 mg/dL before meals <180 mg/dL all other times of the day Blood 05/15/2024 4:55 AM EDT 05/15/2024 4:55 AM EDT Treva Diaz MD POINT OF CARE TEST ORDERABLES Performing Organization Address City/[facility]/ZIP Co de Phone Number [facility] [place] [address] * (ABNORMAL) POCT Glucose (05/15/2024 2:51 AM EDT) Glucose, POC 279(H) 65 - 199 mg/dL [facility] Comment: Supplemental ranges: <140 mg/dL before meals <180 mg/dL all other times of the day Blood 05/15/2024 2:51 AM EDT 05/15/2024 2:51 AM EDT Treva Diaz MD POINT OF CARE TEST ORDERABLES Performing Organization Address [facility] Co de Phone Number [facility] [place] [address] * (ABNORMAL) POCT Glucose (05/14/2024 9:03 PM EDT) Glucose, POC 257(H) 65 - 199 mg/dL [facility] Comment: Supplemental ranges: <140 mg/dL before meals <180 mg/dL all other times of the day Blood 05/14/2024 9:03 PM EDT 05/14/2024 9:03 PM EDT Treva Diaz MD POINT OF CARE TEST ORDERABLES Performing Organization Address City/[facility]/ZIP Co de Phone Number [facility] [place] [address] * (ABNORMAL) POCT Glucose (05/14/2024 7:15 PM EDT) Glucose, POC 207(H) 65 - 199 mg/dL [facility] Comment: Supplemental ranges: <140 mg/dL before meals <180 mg/dL all other times of the day Blood 05/14/2024 7:15 PM EDT 05/14/2024 7:15 PM EDT Treva Diaz MD POINT OF CARE TEST ORDERABLES Performing Organization Address [facility] Co de Phone Number [facility] [place] [address] * POCT Glucose (05/14/2024 4:47 PM EDT) Glucose, POC 188 65 - 199 mg/dL [facility] Comment: Supplemental ranges: <140 mg/dL before meals <180 mg/dL all other times of the day Blood 05/14/2024 4:47 PM EDT 05/14/2024 4:47 PM EDT Treva Diaz MD POINT OF CARE TEST ORDERABLES Performing Organization Address [facility] Co de Phone Number [facility] [place] [address] * POCT Glucose (05/14/2024 1:21 PM EDT) Glucose, POC 163 65 - 199 mg/dL [facility] Comment: Supplemental ranges: <140 mg/dL before meals <180 mg/dL all other times of the day Blood 05/14/2024 1:21 PM EDT 05/14/2024 1:21 PM EDT Treva Diaz MD POINT OF CARE TEST ORDERABLES Performing Organization Address City/[facility] Co de Phone Number [facility] [place] [place] [address] * Anaerobic Culture (05/14/2024 11:33 AM EDT) Anaerobic Culture No anaerobic organisms isolated [facility] Toe 05/14/2024 11:3 3 AM EDT 05/14/2024 12:33 PM EDT Comment:PROXIMAL RIGHT 2ND T OE Narrative Resulting Agency Comment Spec In Lab Gennaro Meyers MD MICROBIOLOGY - GENE RAL ORDERABLES [facility] [place] [address] * (ABNORMAL) Tissue culture (05/14/2024 11:33 AM EDT) Tissue Culture One colony of Coagulase negative Staphylococcus species(A) [facility] Gram Stain Few Neutrophils seen Rare Gram Positive Cocci in pairs seen Results called to and read back by Dr. Mihaela Galvan ??05/14/24 14:57:00 (A) [facility] Organism Coagulase negative Staphylococcus species(A) [facility] Organism Gram Positive Cocci in pairs(A) [facility] Toe 05/14/2024 11:3 3 [...] Sensitive Comment:Gentamicin i s not appropriate for [facility]-therapy. Coagulase Negative Staphylococcus species Levofloxacin MICROSCAN METHOD [...] Meyers MD MICROBIOLOGY - GENE RAL ORDERABLES [facility] [place] [place] [address] * Surgical Pathology Report (05/14/2024 11:32 AM EDT) Surgical Pathology Report -[id number] ? Location: [id number]; [id number]; A The signing [...] Verified: ??05/20/2024 11:25 Performed at: ??-[facility] [place], [place] [address] [employer] Worker: Polly Barnhart MD, FCAP, ??CLIA Certificate: [id number] SPECIMEN(S) SUBMITTED A - RIGHT 2ND TOE, [...] Sections/Processi ng: Blocks submitted for decalcification: A1-A2. Funeral Home Att[employer] sections in 2 cassettes as follows: ?A1-A2: ??Longitudinal section of digit ??k [facility] 05/14/2024 11:3 2 AM EDT Gennaro Meyers MD PATHOLOGY/CYTOLOGY ORDERABLES Performing Organization Address [facility] Co de Phone Number [facility] [place] [address] * Specimen to Pathology (05/14/2024 11:32 AM EDT) AP Specimen 05/14/2024 11:3 2 AM EDT 05/14/2024 11:32 AM EDT Narrative [facility] - 05/14/2024 11:32 AM EDT Specimen requisition ordered. ??Separate Pathology report to follow Treva Diaz MD PATHOLOGY/CYTOLOGY ORDERABLES Performing Organization Address [facility] Co de Phone Number [facility] [place] [address] * (ABNORMAL) POCT Glucose (05/14/2024 7:58 AM EDT) Glucose, POC 203(H) 65 - 199 mg/dL [facility] Comment: Supplemental ranges: <140 mg/dL before meals <180 mg/dL all other times of the day Blood 05/14/2024 7:58 AM EDT 05/14/2024 7:58 AM EDT Treva Diaz MD POINT OF CARE TEST ORDERABLES Performing Organization Address [facility] Co de Phone Number [facility] [place] [address] * (ABNORMAL) Differential, Automated (05/14/2024 5:01 AM EDT) Neutrophil % 80.5 % [facility] Neutrophil Absolute 12.45(H) 1.70 - 6.10 x10(3)/mc L [facility] Lymph % 5.5 % [facility] Lymphocytes Abs 0.8(L) 0.9 - 3.2 x10(3)/mc L [facility] Monocyte % 12.6 % [facility] Monocyte Abs 2.0(H) 0.3 - 0.9 x10(3)/[facility] LAB[facility] Eos % 0.3 % [facility] Eosinophils Abs 0.0 0.0 - 0.4 x10(3)/[facility] Basophil % 0.2 % [facility] Baso Absolute 0.0 0.0 - 0.1 x10(3)/[facility] LABOR[facility]ORY Immature Gran % 0.90 % [facility] Comment: Immature granulocytes(IG's)percentage and absolute count will include metamyelocytes, myelocytes, and promyelocytes. Blood smears from CBCs yielding IG's will be scanned manually for concordance. If this scan disagrees with the automated IG or if promyelocytes are noted, a manual differential will be performed. Immature Gran Absolute 0.14(H) 0.00 - 0.04 x10(3)/[facility] Blood 05/14/2024 5:01 AM EDT 05/14/2024 6:02 AM EDT Narrative Resulting Agency Comment Spec In Lab Carlotta Davis MD HEMATOLOGY OR DERABLES Performing Organization Address City/State/[facility] Co de Phone Number [facility] [place] [address] * (ABNORMAL) Hemogram (05/14/2024 5:01 AM EDT) White Blood Cell 15.5(H) 4.0 - 9.5 x10(3)/[facility] Red Blood Cell 3.55(L) 4.58 - 5.54 x10(6)/[facility] Hemoglobin 10.8(L) 13.7 - 16.5 g/dL [facility] Hematocrit 32.8(L) 40.5 - 48.5 % [facility] Mean Cell Volume 92.4 82.9 - 93.1 fL [facility] Mean Cell Hemoglobin 30.4 27.5 - 32.1 pg [facility] Mean Cell Hemoglobin Concentration 32.9 32.0 - 35.7 g/dL [facility] Platelet 190 145 - 357 x10(3)/mc L [facility] RDW Standard Deviation 53.2(H) 36.0 - 45.0 fL [facility] RDW coefficient of variation 15.6(H) 11.4 - 13.8 % [facility] Mean Platelet Volume 11.2 7.6 - 12.9 fL [facility] NRBC% auto 0.0 % [facility] NRBC Absolute 0.000 0.000 - 0.000 x10(3)/mc L [facility] Blood 05/14/2024 5:01 AM EDT 05/14/2024 6:02 AM EDT Narrative Resulting Agency Comment Spec In Lab Carlotta Davis MD HEMATOLOGY OR DERABLES Performing Organization Address [facility]/ZIP Co de Phone Number [facility] [place] [address] * Magnesium (05/14/2024 5:01 AM EDT) Magnesium 0.98 0.69 - 1.07 mmol/L [facility] Blood 05/14/2024 5:01 AM EDT 05/14/2024 6:02 AM EDT Narrative Resulting Agency Comment Spec In Lab Mary De La Fuente MD CHEMISTRY ORDERABL ES Performing Organization Address City/[facility]/ZIP Co de Phone Number [facility] [place] [address] * Phosphorus (05/14/2024 5:01 AM EDT) Phosphorus 2.8 2.5 - 4.5 mg/dL [facility] Blood 05/14/2024 5:01 AM EDT 05/14/2024 6:02 AM EDT Narrative Resulting Agency Comment Spec In Lab Mary De La Fuente MD CHEMISTRY ORDERABL ES [facility] [place] [address] * (ABNORMAL) Basic Metabolic Panel (non-fasting) (05/14/2024 5:01 AM EDT) Glucose 172 65 - 199 mg/dL [facility] Comment:Diabetes: >=200 mg/d L plus symptoms Blood Urea Nitrogen 46(H) 10 - 20 mg/dL [facility] Creatinine 1.56(H) 0.80 - 1.50 mg/dL [facility] Sodium 137 135 - 145 mmol/L [facility] Potassium 4.4 3.5 - 5.0 mmol/L [facility] Comment: Please note: ??Patients with WBC >100,000 may have falsely elevated Potassium levels. ??For accurate Potassium quantification in these patients send serum separator tube (gold top) for subsequent determinations. ??Contact the Clinical Chemistry Laboratory if there are any questions. Chloride 105 98 - 107 mmol/L [facility] Carbon Dioxide 22 22 - 31 mmol/L [facility] Anion Gap 10 5 - 15 mmol/L [facility] Calcium 8.7 8.5 - 10.5 mg/dL [facility] Est Glomerular Filtration Rate 47(L) >=60 mL/min/1. 73 m?? [facility] Comment: This patient's estimated [...] MD CHEMISTRY ORDERABL ES Performing Organization Address City/[facility]/ZIP Co de Phone Number [facility] [place] [address] * Vancomycin Level, Random (05/14/2024 5:01 AM EDT) Vancomycin, Random 13.5 mg/L [facility] Comment: This level is for determination of the patient's vancomycin jqpi-tiflq-bjw-curve (AUC) value. Contact the inpatient pharmacy for interpretation. Blood 05/14/2024 5:01 AM EDT 05/14/2024 6:02 AM EDT Treva Diaz MD CHEMISTRY ORDERABL ES Performing Organization Address [facility] Co de Phone Number [facility] [place] [address] * POCT Glucose (05/13/2024 8:41 PM EDT) Glucose, POC 179 65 - 199 mg/dL [facility] Comment: Supplemental ranges: <140 mg/dL before meals <180 mg/dL all other times of the day Blood 05/13/2024 8:41 PM EDT 05/13/2024 8:41 PM EDT Treva Diaz MD POINT OF CARE TEST ORDERABLES Performing Organization Address [facility]/ZIP Co de Phone Number [facility] [place] [address] * POCT Glucose (05/13/2024 6:06 PM EDT) Glucose, POC 135 65 - 199 mg/dL [facility] Comment: Supplemental ranges: <140 mg/dL before meals <180 mg/dL all other times of the day Blood 05/13/2024 6:06 PM EDT 05/13/2024 6:06 PM EDT Treva Diaz MD POINT OF CARE TEST ORDERABLES [facility] [place] [address] * POCT Glucose (05/13/2024 11:12 AM EDT) Glucose, POC 163 65 - 199 mg/dL [facility] Comment: Supplemental ranges: <140 mg/dL before meals <180 mg/dL all other times of the day Blood 05/13/2024 11:1 2 AM EDT 05/13/2024 11:12 AM EDT Treva Diaz MD POINT OF CARE TEST ORDERABLES Performing Organization Address City/[facility]/ZIP Co de Phone Number [facility] [place] [address] * POCT Glucose (05/13/2024 7:47 AM EDT) Glucose, POC 194 65 - 199 mg/dL [facility] Comment: Supplemental ranges: <140 mg/dL before meals <180 mg/dL all other times of the day Blood 05/13/2024 7:47 AM EDT 05/13/2024 7:47 AM EDT Treva Diaz MD POINT OF CARE TEST ORDERABLES Performing Organization Address City/[facility]/ZIP Co de Phone Number [facility] [place] [address] * Scan, Peripheral Blood (05/13/2024 5:29 AM EDT) Plat estimate Normal [facility] RBC Morphology Abnormal [facility] [place] Cells 1-5 /HPF [facility] Plat, Giant Less than 1 /HPF [facility] Blood 05/13/2024 5:29 AM EDT 05/13/2024 5:49 AM EDT Narrative Resulting Agency Comment Spec In Lab Carlotta Davis MD HEMATOLOGY OR DERABLES [facility] [place] [address] * (ABNORMAL) Differential, Automated (05/13/2024 5:29 AM EDT) Neutrophil % 81.8 % [facility] Neutrophil Absolute 12.66(H) 1.70 - 6.10 x10(3)/mc L [facility] Lymph % 5.0 % [facility] Lymphocytes Abs 0.8(L) 0.9 - 3.2 x10(3)/mc L [facility] Monocyte % 12.3 % [facility] Monocyte Abs 1.9(H) 0.3 - 0.9 x10(3)/mc L [facility] Eos % 0.2 % [facility] Eosinophils Abs 0.0 0.0 - 0.4 x10(3)/mc L [facility] Basophil % 0.1 % [facility] Baso Absolute 0.0 0.0 - 0.1 x10(3)/mc L [facility] Immature Gran % 0.60 % [facility] Comment: Immature granulocytes(IG's)percentage and absolute count will include metamyelocytes, myelocytes, and promyelocytes. Blood smears from CBCs yielding IG's will be scanned manually for concordance. If this scan disagrees with the automated IG or if promyelocytes are noted, a manual differential will be performed. Immature Gran Absolute 0.09(H) 0.00 - 0.04 x10(3)/mc L [facility] Blood 05/13/2024 5:29 AM EDT 05/13/2024 5:49 AM EDT Narrative Resulting Agency Comment Spec In Lab Carlotta Davis MD HEMATOLOGY OR DERABLES [facility] [place] [address] * (ABNORMAL) Hemogram (05/13/2024 5:29 AM EDT) White Blood Cell 15.5(H) 4.0 - 9.5 x10(3)/mc L [facility] Red Blood Cell 3.64(L) 4.58 - 5.54 x10(6)/mc L [facility] Hemoglobin 10.9(L) 13.7 - 16.5 g/dL [facility] Hematocrit 33.3(L) 40.5 - 48.5 % [facility] Mean Cell Volume 91.5 82.9 - 93.1 fL [facility] Mean Cell Hemoglobin 29.9 27.5 - 32.1 pg [facility] Mean Cell Hemoglobin Concentration 32.7 32.0 - 35.7 g/dL [facility] Platelet 186 145 - 357 x10(3)/mc L [facility] RDW Standard Deviation 53.0(H) 36.0 - 45.0 fL [facility] RDW coefficient of variation 15.8(H) 11.4 - 13.8 % [facility] Mean Platelet Volume 11.8 7.6 - 12.9 fL [facility] NRBC% auto 0.0 % [facility] NRBC Absolute 0.000 0.000 - 0.000 x10(3)/mc L [facility] Blood 05/13/2024 5:29 AM EDT 05/13/2024 5:49 AM EDT Narrative Resulting Agency Comment Spec In Lab Carlotta Davis MD HEMATOLOGY OR DERABLES Performing Organization Address [facility] Co de Phone Number [facility] [place] [address] * Magnesium (05/13/2024 5:29 AM EDT) [facility] Magnesium 0.99 0.69 - 1.07 mmol/L [facility] Blood 05/13/2024 5:29 AM EDT 05/13/2024 5:49 AM EDT Narrative Resulting Agency Comment Spec In Lab Mary De La Fuente MD CHEMISTRY ORDERABL ES Performing Organization Address [facility] Co de Phone Number [facility] [place] [address] * Phosphorus (05/13/2024 5:29 AM EDT) [facility] Phosphorus 2.7 2.5 - 4.5 mg/dL [facility] Blood 05/13/2024 5:29 AM EDT 05/13/2024 5:49 AM EDT Narrative Resulting Agency Comment Spec In Lab Mary De La Fuente MD CHEMISTRY ORDERABL ES Performing Organization Address [facility] Co de Phone Number [facility] [place] [address] * (ABNORMAL) Basic Metabolic Panel (non-fasting) (05/13/2024 5:29 AM EDT) [facility] Glucose 166 65 - 199 mg/dL [facility] Comment:Diabetes: >=200 mg/d L plus symptoms Blood Urea Nitrogen 57(H) 10 - 20 mg/dL [facility] Creatinine 1.53(H) 0.80 - 1.50 mg/dL [facility] Sodium 137 135 - 145 mmol/L [facility] Potassium 4.4 3.5 - 5.0 mmol/L [facility] Comment: Please note: ??Patients with WBC >100,000 may have falsely elevated Potassium levels. ??For accurate Potassium quantification in these patients send serum separator tube (gold top) for subsequent determinations. ??Contact the Clinical Chemistry Laboratory if there are any questions. Chloride 104 98 - 107 mmol/L [facility] Carbon Dioxide 24 22 - 31 mmol/L [facility] Anion Gap 9 5 - 15 mmol/L [facility] Calcium 8.7 8.5 - 10.5 mg/dL [facility] Est Glomerular Filtration Rate 49(L) >=60 mL/min/1. 73 m?? [facility] Comment: This patient's estimated [...] MD CHEMISTRY ORDERABL ES Performing Organization Address City/[facility]/ZIP Co de Phone Number [facility] [place] [address] * POCT Glucose (05/12/2024 11:46 PM EDT) Glucose, POC 165 65 - 199 mg/dL [facility] Comment: Supplemental ranges: <140 mg/dL before meals <180 mg/dL all other times of the day Blood 05/12/2024 11:4 6 PM EDT 05/12/2024 11:46 PM EDT Treva Diaz MD POINT OF CARE TEST ORDERABLES [facility] [place] [address] * POCT Glucose (05/12/2024 8:36 PM EDT) Glucose, POC 164 65 - 199 mg/dL [facility] Comment: Supplemental ranges: <140 mg/dL before meals <180 mg/dL all other times of the day Blood 05/12/2024 8:36 PM EDT 05/12/2024 8:36 PM EDT Treva Diaz MD POINT OF CARE TEST ORDERABLES Performing Organization Address City/[facility]/ZIP Co de Phone Number [facility] [place] [address] * POCT Glucose (05/12/2024 5:38 PM EDT) Glucose, POC 175 65 - 199 mg/dL [facility] Comment: Supplemental ranges: <140 mg/dL before meals <180 mg/dL all other times of the day Blood 05/12/2024 5:38 PM EDT 05/12/2024 5:38 PM EDT Treva Diaz MD POINT OF CARE TEST ORDERABLES Performing Organization Address [facility] Co de Phone Number [facility] [place] [address] * Vancomycin Level, Random (05/12/2024 2:10 PM EDT) Vancomycin, Random 22.3 mg/L [facility] Comment: This level is for determination of the patient's vancomycin rzfq-unlnu-lzx-curve (AUC) value. Contact the inpatient pharmacy for interpretation. Blood 05/12/2024 2:10 PM EDT 05/12/2024 2:23 PM EDT Treva Diaz MD CHEMISTRY ORDERABL ES Performing Organization Address City/[facility]/ZIP Co de Phone Number [facility] [place] [address] * POCT Glucose (05/12/2024 1:42 PM EDT) Pathologist [facility] Glucose, POC 168 65 - 199 mg/dL [facility] Comment: Supplemental ranges: <140 mg/dL before meals <180 mg/dL all other times of the day Blood 05/12/2024 1:42 PM EDT 05/12/2024 1:42 PM EDT Treva Diaz MD POINT OF CARE TEST ORDERABLES [facility] [place] [address] * Duplex for DVT, Leg, Unilat (05/12/2024 10:19 AM EDT) [facility] VB Text Report Department: Vascular Surgery Lab Patient: [id number] (JOSSY SHANKS) CPT: [id number] Referring Physician: MARY DE LA FUENTE ?? [...] Glucose, POC 161 65 - 199 mg/dL [facility] Comment: Supplemental ranges: <140 mg/dL before meals <180 mg/dL all other times of the day Blood 05/12/2024 9:00 AM EDT 05/12/2024 9:00 AM EDT Treva Diaz MD POINT OF CARE TEST ORDERABLES Performing Organization Address [facility] Co de Phone Number [facility] [place] [address] * (ABNORMAL) Sedimentation rate (05/12/2024 4:45 AM EDT) [facility] Sedimentation Rate Automated >119(H) 3 - 46 mm/hr [facility] Comment: Effective September 24, [...] MD HEMATOLOGY ORDERABLE S Performing Organization Address [facility] Healthcare/[facility] Co de Phone Number [facility] [place] [place] [address] * (ABNORMAL) CRP, acute inflammation (05/12/2024 4:45 AM EDT) [facility] C-Reactive Protein 152.4(H) <=4.9 mg/L [facility] Blood Venous Draw / Unknown 05/12/2024 4:45 AM EDT 05/12/2024 5:12 AM EDT Narrative Resulting Agency Comment Spec In Lab Juan José Harrison MD CHEMISTRY ORDERABLES Performing Organization Address [facility] Co de Phone Number [facility] [place] [place] [address] * (ABNORMAL) Differential, Automated (05/12/2024 4:45 AM EDT) Neutrophil % 87.9 % [facility] Neutrophil Absolute 17.31(H) 1.70 - 6.10 x10(3)/ L [facility] Lymph % 3.9 % [facility] Lymphocytes Abs 0.8(L) 0.9 - 3.2 x10(3)/[facility] LABORATORY Monocyte % 7.4 % [facility] Monocyte Abs 1.4(H) 0.3 - 0.9 x10(3)/[facility] LABORATORY Eos % 0.0 % [facility] Eosinophils Abs 0.0 0.0 - 0.4 x10(3)/[facility] LABORATORY Basophil % 0.1 % [facility] Baso Absolute 0.0 0.0 - 0.1 x10(3)/[facility] LABORATORY Immature Gran % 0.70 % [facility] Comment: Immature granulocytes(IG's)percentage and absolute count will include metamyelocytes, myelocytes, and promyelocytes. Blood smears from CBCs yielding IG's will be scanned manually for concordance. If this scan disagrees with the automated IG or if promyelocytes are noted, a manual differential will be performed. Immature Gran Absolute 0.14(H) 0.00 - 0.04 x10(3)/[facility] LABORATORY Blood 05/12/2024 4:45 AM EDT 05/12/2024 5:06 AM EDT Narrative Resulting Agency Comment Spec In Lab Carlotta Davis MD HEMATOLOGY OR DERABLES [facility] [place] [address] * (ABNORMAL) Hemogram (05/12/2024 4:45 AM EDT) White Blood Cell 19.7(H) 4.0 - 9.5 x10(3)/mc L [facility] Red Blood Cell 3.58(L) 4.58 - 5.54 x10(6)/mc L [facility] Hemoglobin 10.9(L) 13.7 - 16.5 g/dL [facility] Hematocrit 33.1(L) 40.5 - 48.5 % [facility] Mean Cell Volume 92.5 82.9 - 93.1 fL [facility] Mean Cell Hemoglobin 30.4 27.5 - 32.1 pg [facility] Mean Cell Hemoglobin Concentration 32.9 32.0 - 35.7 g/dL [facility] Platelet 165 145 - 357 x10(3)/[facility] LABORATORY RDW Standard Deviation 53.2(H) 36.0 - 45.0 [facility] LABORATORY RDW coefficient of variation 15.7(H) 11.4 - 13.8 % [facility] Mean Platelet Volume 12.1 7.6 - 12.9 [facility] LABORATORY NRBC% auto 0.0 % [facility] NRBC Absolute 0.000 0.000 - 0.000 x10(3)/[facility] LABORATORY Blood 05/12/2024 4:45 AM EDT 05/12/2024 5:06 AM EDT Narrative Resulting Agency Comment Spec In Lab Carlotta Davis MD HEMATOLOGY OR DERABLES [facility] [place] [address] * Magnesium (05/12/2024 4:45 AM EDT) Magnesium 1.07 0.69 - 1.07 mmol/L [facility] Blood 05/12/2024 4:45 AM EDT 05/12/2024 5:06 AM EDT Narrative Resulting Agency Comment Spec In Lab Mary De La Fuente MD CHEMISTRY ORDERABL ES [facility] [place] [address] * Phosphorus (05/12/2024 4:45 AM EDT) Phosphorus 2.7 2.5 - 4.5 mg/dL [facility] Blood 05/12/2024 4:45 AM EDT 05/12/2024 5:06 AM EDT Narrative Resulting Agency Comment Spec In Lab Mary De La Fuente MD CHEMISTRY ORDERABL ES Performing Organization Address [facility] Co de Phone Number [facility] [place] [address] * (ABNORMAL) Basic Metabolic Panel (non-fasting) (05/12/2024 4:45 AM EDT) Glucose 156 65 - 199 mg/dL [facility] Comment:Diabetes: >=200 mg/d L plus symptoms Blood Urea Nitrogen 72(H) 10 - 20 mg/dL [facility] Creatinine 2.03(H) 0.80 - 1.50 mg/dL [facility] Sodium 135 135 - 145 mmol/L [facility] Potassium 4.5 3.5 - 5.0 mmol/L [facility] Comment: Please note: ??Patients with WBC >100,000 may have falsely elevated Potassium levels. ??For accurate Potassium quantification in these patients send serum separator tube (gold top) for subsequent determinations. ??Contact the Clinical Chemistry Laboratory if there are any questions. Chloride 101 98 - 107 mmol/L [facility] Carbon Dioxide 24 22 - 31 mmol/L [facility] Anion Gap 10 5 - 15 mmol/L [facility] Calcium 8.4(L) 8.5 - 10.5 mg/dL [facility] Est Glomerular Filtration Rate 35(L) >=60 mL/min/1. 73 m?? [facility] Comment: This patient's estimated [...] De La Fuente MD CHEMISTRY ORDERABL ES [facility] [place] [address] * ANGY, legs, multiple levels (05/12/2024 3:22 AM EDT) VB Text Report Department: Vascular Surgery Lab Patient: [id number] (JOSSY SHANKS) CPT: 41692 Referring Physician: THO DICKSON ?? Phone: Indications: [...] MD VASCULAR ORDERABLE S Performing Organization Address [facility] de Phone Number [facility] * (ABNORMAL) POCT Glucose (05/11/2024 8:14 PM EDT) Glucose, POC 201(H) 65 - 199 mg/dL [facility] Comment: Supplemental ranges: <140 mg/dL before meals <180 mg/dL all other times of the day Blood 05/11/2024 8:14 PM EDT 05/11/2024 8:14 PM EDT Treva Diaz MD POINT OF CARE TEST ORDERABLES Performing Organization Address [facility] de Phone Number [facility] [place] [address] * Vancomycin Level, Random (05/11/2024 8:10 PM EDT) Vancomycin, Random 21.7 mg/L [facility] Comment: This level is for determination of the patient's vancomycin lmnr-xislj-omh-curve (AUC) value. Contact the inpatient pharmacy for interpretation. Blood 05/11/2024 8:10 PM EDT 05/11/2024 8:32 PM EDT Treva Diaz MD CHEMISTRY ORDERABL ES Performing Organization Address [facility] Co de Phone Number [facility] [place] [place] [address] * POCT Glucose (05/11/2024 4:34 PM EDT) Glucose, POC 197 65 - 199 mg/dL [facility] Comment: Supplemental ranges: <140 mg/dL before meals <180 mg/dL all other times of the day Blood 05/11/2024 4:34 PM EDT 05/11/2024 4:34 PM EDT Treva Diaz MD POINT OF CARE TEST ORDERABLES Performing Organization Address City/[facility]/ZIP Co de Phone Number [facility] [place] [address] * (ABNORMAL) POCT Glucose (05/11/2024 11:47 AM EDT) Glucose, POC 255(H) 65 - 199 mg/dL [facility] Comment: Supplemental ranges: <140 mg/dL before meals <180 mg/dL all other times of the day Blood 05/11/2024 11:4 7 AM EDT 05/11/2024 11:47 AM EDT Treva Diaz MD POINT OF CARE TEST ORDERABLES Performing Organization Address [facility] Co de Phone Number [facility] [place] [address] * (ABNORMAL) POCT Glucose (05/11/2024 6:57 AM EDT) Glucose, POC 200(H) 65 - 199 mg/dL [facility] Comment: Supplemental ranges: <140 mg/dL before meals <180 mg/dL all other times of the day Blood 05/11/2024 6:57 AM EDT 05/11/2024 6:57 AM EDT Treva Diaz MD POINT OF CARE TEST ORDERABLES Performing Organization Address City/[facility]/ZIP Co de Phone Number [facility] [place] [address] * (ABNORMAL) Differential, Automated (05/11/2024 2:00 AM EDT) Neutrophil % 85.8 % [facility] Neutrophil Absolute 22.16(H) 1.70 - 6.10 x10(3)/mc L [facility] Lymph % 1.5 % [facility] Lymphocytes Abs 0.4(L) 0.9 - 3.2 x10(3)/ L [facility] Monocyte % 4.9 % [facility] Monocyte Abs 1.3(H) 0.3 - 0.9 x10(3)/mc L [facility] Eos % 0.0 % [facility] Eosinophils Abs 0.0 0.0 - 0.4 x10(3)/ L [facility] Basophil % 0.1 % [facility] Baso Absolute 0.0 0.0 - 0.1 x10(3)/ L [facility] Immature Gran % 7.70 % [facility] Comment: Immature granulocytes(IG's)percentage and absolute count will include metamyelocytes, myelocytes, and promyelocytes. Blood smears from CBCs yielding IG's will be scanned manually for concordance. If this scan disagrees with the automated IG or if promyelocytes are noted, a manual differential will be performed. Immature Gran Absolute 1.98(H) 0.00 - 0.04 x10(3)/ L [facility] Blood 05/11/2024 2:00 AM EDT 05/11/2024 2:07 AM EDT Narrative Resulting Agency Comment Spec In Lab Carlotta Davis MD HEMATOLOGY OR DERABLES Performing Organization Address City/State/[facility] Co de Phone Number [facility] [place] [address] * (ABNORMAL) Hemogram (05/11/2024 2:00 AM EDT) White Blood Cell 25.8(H) 4.0 - 9.5 x10(3)/ L [facility] Red Blood Cell 3.64(L) 4.58 - 5.54 x10(6)/ L [facility] Hemoglobin 10.9(L) 13.7 - 16.5 g/dL [facility] Hematocrit 32.5(L) 40.5 - 48.5 % [facility] Mean Cell Volume 89.3 82.9 - 93.1 fL [facility] Mean Cell Hemoglobin 29.9 27.5 - 32.1 pg [facility] Mean Cell Hemoglobin Concentration 33.5 32.0 - 35.7 g/dL [facility] Platelet 141(L) 145 - 357 x10(3)/mc L [facility] RDW Standard Deviation 51.2(H) 36.0 - 45.0 fL [facility] RDW coefficient of variation 15.6(H) 11.4 - 13.8 % [facility] Mean Platelet Volume 12.9 7.6 - 12.9 fL [facility] NRBC% auto 0.0 % [facility] NRBC Absolute 0.000 0.000 - 0.000 x10(3)/mc L [facility] Blood 05/11/2024 2:00 AM EDT 05/11/2024 2:07 AM EDT Narrative Resulting Agency Comment Spec In Lab Carlotta Davis MD HEMATOLOGY OR DERABLES Performing Organization Address [facility] Co de Phone Number [facility] [place] [address] * Magnesium (05/11/2024 2:00 AM EDT) Magnesium 1.01 0.69 - 1.07 mmol/L [facility] Blood 05/11/2024 2:00 AM EDT 05/11/2024 2:07 AM EDT Narrative Resulting Agency Comment Spec In Lab Mary De La Fuente MD CHEMISTRY ORDERABL ES Performing Organization Address [facility] Co de Phone Number [facility] [place] [place] [address] * Phosphorus (05/11/2024 2:00 AM EDT) Phosphorus 4.0 2.5 - 4.5 mg/dL [facility] Blood 05/11/2024 2:00 AM EDT 05/11/2024 2:07 AM EDT Narrative Resulting Agency Comment Spec In Lab Mary De La Fuente MD CHEMISTRY ORDERABL ES [facility] [place] [place] [address] * (ABNORMAL) Basic Metabolic Panel (non-fasting) (05/11/2024 2:00 AM EDT) Glucose 212(H) 65 - 199 mg/dL [facility] Comment:Diabetes: >=200 mg/d L plus symptoms Blood Urea Nitrogen 72(H) 10 - 20 mg/dL [facility] Creatinine 2.58(H) 0.80 - 1.50 mg/dL [facility] Comment:result rechecked-HN Sodium 136 135 - 145 mmol/L [facility] Potassium 4.7 3.5 - 5.0 mmol/L [facility] Comment: Please note: ??Patients with WBC >100,000 may have falsely elevated Potassium levels. ??For accurate Potassium quantification in these patients send serum separator tube (gold top) for subsequent determinations. ??Contact the Clinical Chemistry Laboratory if there are any questions. Chloride 100 98 - 107 mmol/L [facility] Carbon Dioxide 24 22 - 31 mmol/L [facility] Anion Gap 12 5 - 15 mmol/L [facility] Calcium 8.3(L) 8.5 - 10.5 mg/dL [facility] Est Glomerular Filtration Rate 26(L) >=60 mL/min/1. 73 m?? [facility] Comment: This patient's estimated [...] CHEMISTRY ORDERABL ES Performing Organization Address [facility] Co de Phone Number [facility] [place] [address] * Vancomycin Level, Random (05/11/2024 2:00 AM EDT) Pathologist [facility] Vancomycin, Random 21.4 mg/L [facility] Comment: This level is for determination of the patient's vancomycin qcdy-voxii-lqz-curve (AUC) value. Contact the inpatient pharmacy for interpretation. Blood 05/11/2024 2:00 AM EDT 05/11/2024 2:07 AM EDT Mary De La Fuente MD CHEMISTRY ORDERABL ES Performing Organization Address [facility] Co md Phone Number [facility] [place] [address] * (ABNORMAL) POCT Glucose (05/10/2024 11:40 PM EDT) Glucose, POC 230(H) 65 - 199 mg/dL [facility] Comment: Supplemental ranges: <140 mg/dL before meals <180 mg/dL all other times of the day Blood 05/10/2024 11:4 0 PM EDT 05/10/2024 11:40 PM EDT Treva Diaz MD POINT OF CARE TEST ORDERABLES Performing Organization Address [facility] Co de Phone Number [facility] [place] [address] * POCT Glucose (05/10/2024 4:09 PM EDT) Glucose, POC 189 65 - 199 mg/dL [facility] Comment: Supplemental ranges: <140 mg/dL before meals <180 mg/dL all other times of the day Blood 05/10/2024 4:09 PM EDT 05/10/2024 4:09 PM EDT Treva Diaz MD POINT OF CARE TEST ORDERABLES [facility] [place] [address] * POCT Glucose (05/10/2024 12:11 PM EDT) Glucose, POC 185 65 - 199 mg/dL [facility] Comment: Supplemental ranges: <140 mg/dL before meals <180 mg/dL all other times of the day Blood 05/10/2024 12:1 1 PM EDT 05/10/2024 12:11 PM EDT Mary De La Fuente MD POINT OF CARE TEST ORDERABLES Performing Organization Address City/[facility]/ZIP Co de Phone Number [facility] [place] [address] * Vancomycin Level, Random (05/10/2024 12:00 PM EDT) Vancomycin, Random 15.5 mg/L [facility] Comment: This level is for determination of the patient's vancomycin dakl-nzcev-mik-curve (AUC) value. Contact the inpatient pharmacy for interpretation. Blood 05/10/2024 12:0 0 PM EDT 05/10/2024 12:21 PM EDT Tho Dickson MD CHEMISTRY ORDERABLES [facility] [place] [address] * POCT Glucose (05/10/2024 8:09 AM EDT) Glucose, POC 195 65 - 199 mg/dL [facility] Comment: Supplemental ranges: <140 mg/dL before meals <180 mg/dL all other times of the day Blood 05/10/2024 8:09 AM EDT 05/10/2024 8:09 AM EDT Mary De La Fuente MD POINT OF CARE TEST ORDERABLES [facility] [place] [place] [address] * CK (05/10/2024 6:55 AM EDT) Creatine Kinase 58 0 - 200 unit/L [facility] Blood Venous Draw / Unknown 05/10/2024 6:55 AM EDT 05/10/2024 7:41 AM EDT Narrative Resulting Agency Comment Spec In Lab Emmanuel Corey DO CHEMISTRY ORDERABLES Performing Organization Address [facility]/ZIP Co de Phone Number [facility] [place] [address] * (ABNORMAL) Phosphorus (05/10/2024 6:55 AM EDT) Phosphorus 5.1(H) 2.5 - 4.5 mg/dL [facility] Blood 05/10/2024 6:55 AM EDT 05/10/2024 6:59 AM EDT Narrative Resulting Agency Comment Spec In Lab Tho Dickson MD CHEMISTRY ORDERABLES Performing Organization Address City/[facility]/ZIP Co de Phone Number [facility] [place] [address] * (ABNORMAL) Basic Metabolic Panel (non-fasting) (05/10/2024 6:55 AM EDT) Glucose 193 65 - 199 mg/dL [facility] Comment:Diabetes: >=200 mg/d L plus symptoms Blood Urea Nitrogen 69(H) 10 - 20 mg/dL [facility] Creatinine 3.75(H) 0.80 - 1.50 mg/dL [facility] Sodium 128(L) 135 - 145 mmol/L [facility] Potassium 5.0 3.5 - 5.0 mmol/L [facility] Comment: Please note: ??Patients with WBC >100,000 may have falsely elevated Potassium levels. ??For accurate Potassium quantification in these patients send serum separator tube (gold top) for subsequent determinations. ??Contact the Clinical Chemistry Laboratory if there are any questions. Chloride 93(L) 98 - 107 mmol/L [facility] Carbon Dioxide 23 22 - 31 mmol/L [facility] Anion Gap 12 5 - 15 mmol/L [facility] Calcium 8.6 8.5 - 10.5 mg/dL [facility] Est Glomerular Filtration Rate 17(L) >=60 mL/min/1. 73 m?? [facility] Comment: This patient's estimated [...] In Lab Tho Dickson MD CHEMISTRY ORDERABLES [facility] [place] [place] [address] * Lactate, whole blood, [place] to lab [place] (05/10/2024 6:55 AM EDT) Lactate WB 1.7 0.5 - 2.2 mmol/L [facility] Blood 05/10/2024 6:55 AM EDT 05/10/2024 7:00 AM EDT Narrative Resulting Agency Comment Spec In Lab Tho Dickson MD CHEMISTRY ORDERABLES [facility] [place] [place] [address] * MRI Foot wwo Contrast Right (05/10/2024 5:51 AM EDT) Pathologist Bolongaro Trevor WORKSTATION ID [id number] [facility] Anatomical Region Laterality Modality Foot Right Magnetic [...] have questions please contact the health healthcare management that requested your imaging first. ? Narrative [...] who have questions please contactthe health healthcare management that requested your imaging first. Tho Dickson MD [facility] MRI ORDERABLES * Creatinine, urine, random (05/10/2024 4:15 AM EDT) Creatinine, Urine 106 mg/dL [facility] Urine 05/10/2024 4:15 AM EDT 05/10/2024 4:23 AM EDT Narrative Resulting Agency Comment Spec In Lab Tho Dickson MD URINE ORDERABLES [facility] [place] [address] * Sodium, urine, random (05/10/2024 4:15 AM EDT) Sodium, Urine <20 mmol/L [facility] Urine 05/10/2024 4:15 AM EDT 05/10/2024 4:23 AM EDT Narrative Resulting Agency Comment Spec In Lab Tho Dickson MD URINE ORDERABLES Performing Organization Address [facility]/ZIP Co de Phone Number [facility] [place] [address] * Urea nitrogen, urine, random (05/10/2024 4:15 AM EDT) Urea Nitrogen, Urine 580 mg/dL [facility] Urine 05/10/2024 4:15 AM EDT 05/10/2024 4:23 AM EDT Narrative Resulting Agency Comment Spec In Lab Tho Dickson MD URINE ORDERABLES Performing Organization Address [facility] Co de Phone Number [facility] [place] [address] * (ABNORMAL) Skin/Superficial Wound Culture Toe (05/10/2024 2:56 AM EDT) Skin/Superfic ial Wound Culture Rare mixed bacterial morphotypes suggestive of normal cutaneous armani including Rare Gram Negative Rods (A) [facility] Gram Stain Many Neutrophils seen Few Gram Positive Cocci seen (A) [facility] Organism Gram Negative Rods(A) [facility] Organism Gram Positive Cocci(A) [facility] Superficial Wound TOE STRUCTURE / Unknown 05/10/2024 2:56 AM EDT 05/10/2024 5:18 AM EDT Comment:Right toe wound Narrative Resulting Agency Comment Spec In Lab Tho Dickson MD MICROBIOLOGY - GENER AL ORDERABLES Performing Organization Address City/[facility]/ZIP Co de Phone Number [facility] [place] [address] * (ABNORMAL) Urinalysis without microscopic (05/10/2024 2:42 AM EDT) Glucose, Urine Dipstick Negative Negative mg/dL [facility] Protein, Urine Dipstick 30(A) Negative mg/dL [facility] Bilirubin, Urine Dipstick Negative Negative mg/dL [facility] Comment: Clinical correlation required for positive Urine Bilirubin results as false positive may occur with some drugs and drug related products. If a false positive is suspected a serum total bilirubin should be considered if clinically indicated. Urobilinogen, Urine Dipstick Normal Normal mg/dL [facility] pH, Urn (dipstick) 5.5 5.0 - 8.0 [facility] Blood, Urine Dipstick Large(A) Negative mg/dL [facility] Ketone, Urine Dipstick Negative Negative mg/dL [facility] Nitrite, Urine Dipstick Negative Negative [facility] Leukocytes, Urine Dipstick Small(A) Negative [facility] Appearance, Urine Dipstick Cloudy(A) Clear [facility] Specific [place] Urine Automated 1.017 1.005 - 1.030 [facility] Color, Urine Dipstick Forest(A) Yellow [facility] Urine 05/10/2024 2:42 AM EDT 05/10/2024 2:57 AM EDT Narrative Resulting Agency Comment Spec In Lab Tho Dickson MD URINE ORDERABLES Performing Organization Address City/State/[facility] Co de Phone Number [facility] [place] [address] * XR Chest One View (05/10/2024 2:37 AM EDT) WORKSTATION ID [id number] RAD Anatomical Region Laterality Modality Chest N/A Digital Radiogra phy Impressions 05/10/2024 3:27 AM EDT Bibasilar atelectasis. Thank you for letting us participate in the care of this patient. ??If you are a health care provider and have any questions regarding this report, please contact the number below. ??For patients who have questions please contact the health healthcare management that requested your imaging first. ? Narrative [...] who have questions please contactthe health healthcare management that requested your imaging first. Tho Dickson MD IMG DX ORDERABLES * Blood culture (05/10/2024 2:32 AM EDT) Blood Culture No growth at 5 days. [facility] Blood STRUCTURE OF RIGHT HAND / Unknown 05/10/2024 2:32 AM EDT 05/10/2024 4:17 AM EDT Narrative Resulting Agency Comment Spec In Lab Tho Dickson MD MICROBIOLOGY - BLOOD ORDERABLES Performing Organization Address [facility] Co de Phone Number [facility] [place] [address] * (ABNORMAL) POCT Glucose (05/10/2024 2:30 AM EDT) Pathologist [facility] Glucose, POC 201(H) 65 - 199 mg/dL [facility] Comment: Supplemental ranges: <140 mg/dL before meals <180 mg/dL all other times of the day Blood 05/10/2024 2:30 AM EDT 05/10/2024 2:30 AM EDT Tho Dickson MD POINT OF CARE TEST O RDERABLES Performing Organization Address [facility] Co de Phone Number [facility] [place] [address] * Vancomycin Level, Random (05/10/2024 2:20 AM EDT) Vancomycin, Random 26.9 mg/L [facility] Comment: This level is for determination of the patient's vancomycin jnvg-hlyyt-aeu-curve (AUC) value. Contact the inpatient pharmacy for interpretation. Blood Venous Draw / Unknown 05/10/2024 2:20 AM EDT 05/10/2024 2:38 AM EDT Tho Dickson MD CHEMISTRY ORDERABLES [facility] [place] [place] [address] * Scan, Peripheral Blood (05/10/2024 2:20 AM EDT) Plat estimate Normal [facility] RBC Morphology Abnormal [facility] [facility] Ovalocytes 1-5 /HPF [facility] [place] Cells 1-5 /HPF [facility] Plat, Giant Less than 1 /HPF [facility] Blood 05/10/2024 2:20 AM EDT 05/10/2024 2:36 AM EDT Narrative Resulting Agency Comment Spec In Lab Anita Camacho MD HEMATOLOGY ORDERABLE S Performing Organization Address [facility] Co de Phone Number [facility] [place] [place] [address] * Type and Screen Validity (05/10/2024 2:20 AM EDT) T&S only valid at [facility] LABORATORY Comment:This Type and Screen result is only valid at the [facility] Blood 05/10/2024 2:20 AM EDT 05/10/2024 2:49 AM EDT Narrative Resulting Agency Comment Spec In Lab Anita Camacho MD BLOOD BANK LAB ORDER ANGELIQUE Performing Organization Address City/[facility]/ZIP Co de Phone Number [facility] [place] [address] * ABORH Recheck Status (05/10/2024 2:20 AM EDT) ABORH Recheck Order Order Placed [facility] ABORH Type Recheck Completed [facility] Blood 05/10/2024 2:20 AM EDT 05/10/2024 2:49 AM EDT Narrative Resulting Agency Comment Spec In Lab Anita Camacho MD BLOOD BANK LAB ORDER ANGELIQUE [facility] [place] [address] * (ABNORMAL) Differential, Automated (05/10/2024 2:20 AM EDT) Neutrophil % 89.2 % [facility] Neutrophil Absolute 25.39(H) 1.70 - 6.10 x10(3)/mc L [facility] Lymph % 1.2 % [facility] Lymphocytes Abs 0.4(L) 0.9 - 3.2 x10(3)/mc L [facility] Monocyte % 2.9 % [facility] Monocyte Abs 0.8 0.3 - 0.9 x10(3)/mc L [facility] Eos % 0.0 % [facility] Eosinophils Abs 0.0 0.0 - 0.4 x10(3)/mc L [facility] Basophil % 0.2 % [facility] Baso Absolute 0.1 0.0 - 0.1 x10(3)/mc L [facility] Immature Gran % 6.50 % [facility] Comment: Immature granulocytes(IG's)percentage and absolute count will include metamyelocytes, myelocytes, and promyelocytes. Blood smears from CBCs yielding IG's will be scanned manually for concordance. If this scan disagrees with the automated IG or if promyelocytes are noted, a manual differential will be performed. Immature Gran Absolute 1.85(H) 0.00 - 0.04 x10(3)/mc L [facility] Blood 05/10/2024 2:20 AM EDT 05/10/2024 2:36 AM EDT Narrative Resulting Agency Comment Spec In Lab Anita Camacho MD HEMATOLOGY ORDERABLE S Performing Organization Address [facility]/ZIP Co de Phone Number [facility] [place] [address] * (ABNORMAL) Hemogram (05/10/2024 2:20 AM EDT) White Blood Cell 28.5(H) 4.0 - 9.5 x10(3)/ L [facility] Red Blood Cell 3.83(L) 4.58 - 5.54 x10(6)/ L [facility] Hemoglobin 11.4(L) 13.7 - 16.5 g/dL [facility] Hematocrit 34.5(L) 40.5 - 48.5 % [facility] Mean Cell Volume 90.1 82.9 - 93.1 fL [facility] Mean Cell Hemoglobin 29.8 27.5 - 32.1 pg [facility] Mean Cell Hemoglobin Concentration 33.0 32.0 - 35.7 g/dL [facility] Platelet 135(L) 145 - 357 x10(3)/[facility] LABORATORY RDW Standard Deviation 51.9(H) 36.0 - 45.0 [facility] LABORATORY RDW coefficient of variation 15.6(H) 11.4 - 13.8 % [facility] Mean Platelet Volume 12.8 7.6 - 12.9 [facility] LABORATORY NRBC% auto 0.0 % [facility] NRBC Absolute 0.000 0.000 - 0.000 x10(3)/[facility] LABORATORY Blood 05/10/2024 2:20 AM EDT 05/10/2024 2:36 AM EDT Narrative Resulting Agency Comment Spec In Lab Anita Camacho MD HEMATOLOGY ORDERABLE S [facility] [place] [address] * (ABNORMAL) Hemoglobin A1c (05/10/2024 2:20 AM EDT) Hemoglobin A1c 5.9(H) 4.3 - 5.6 % [facility] Comment: Reference Range: 4.3 [...] Mellitus, Diabetes Care 2013; 36: Suppl. 1, H14-28 Estimated Average Glucose See note mg/dL [facility] Comment: Estimated Average Glucose not appropriate for patients over 70 years of age. Blood 05/10/2024 2:20 AM EDT 05/10/2024 2:36 AM EDT Narrative Resulting Agency Comment Spec In Lab Tho Dickson MD CHEMISTRY ORDERABLES Performing Organization Address [facility] Co de Phone Number [facility] [place] [address] * Hepatic Function Panel (05/10/2024 2:20 AM EDT) Protein, Total 7.6 6.1 - 8.0 g/dL [facility] Albumin 3.3 3.2 - 5.2 g/dL [facility] Aspartate Aminotransferase 21 0 - 39 unit/L [facility] Alanine Aminotransferase 19 0 - 55 unit/L [facility] Alkaline Phosphatase 42 40 - 130 unit/L [facility] Bilirubin, Total 0.5 0.2 - 1.3 mg/dL [facility] Bilirubin, Direct 0.2 0.0 - 0.3 mg/dL [facility] Blood 05/10/2024 2:20 AM EDT 05/10/2024 2:36 AM EDT Narrative Resulting Agency Comment Spec In Lab Tho Dickson MD CHEMISTRY ORDERABLES Performing Organization Address [facility] Co de Phone Number [facility] [place] [address] * (ABNORMAL) Phosphorus (05/10/2024 2:20 AM EDT) Phosphorus 4.6(H) 2.5 - 4.5 mg/dL [facility] Blood 05/10/2024 2:20 AM EDT 05/10/2024 2:36 AM EDT Narrative Resulting Agency Comment Spec In Lab Tho Dickson MD CHEMISTRY ORDERABLES Performing Organization Address [facility]/ZIP Co de Phone Number [facility] [place] [address] * Magnesium (05/10/2024 2:20 AM EDT) Pathologist [facility] Magnesium 0.85 0.69 - 1.07 mmol/L [facility] Blood 05/10/2024 2:20 AM EDT 05/10/2024 2:36 AM EDT Narrative Resulting Agency Comment Spec In Lab Tho Dickson MD CHEMISTRY ORDERABLES Performing Organization Address [facility] Co de Phone Number [facility] [place] [address] * (ABNORMAL) Basic Metabolic Panel (non-fasting) (05/10/2024 2:20 AM EDT) Pathologist [facility] Glucose 196 65 - 199 mg/dL [facility] Comment:Diabetes: >=200 mg/d L plus symptoms Blood Urea Nitrogen 71(H) 10 - 20 mg/dL [facility] Creatinine 3.94(H) 0.80 - 1.50 mg/dL [facility] Sodium 129(L) 135 - 145 mmol/L [facility] Potassium 5.3(H) 3.5 - 5.0 mmol/L [facility] Comment: Please note: ??Patients with WBC >100,000 may have falsely elevated Potassium levels. ??For accurate Potassium quantification in these patients send serum separator tube (gold top) for subsequent determinations. ??Contact the Clinical Chemistry Laboratory if there are any questions. Chloride 93(L) 98 - 107 mmol/L [facility] Carbon Dioxide 24 22 - 31 mmol/L [facility] Anion Gap 12 5 - 15 mmol/L [facility] Calcium 8.5 8.5 - 10.5 mg/dL [facility] Est Glomerular Filtration Rate 16(L) >=60 mL/min/1. 73 m?? [facility] Comment: This patient's estimated [...] In Lab Tho Dickson MD CHEMISTRY ORDERABLES [facility] [place] [address] * (ABNORMAL) Prothrombin Time (05/10/2024 2:20 AM EDT) Prothrombin Time 27.9(H) 9.4 - 12.5 sec [facility] International Normalization Ratio 2.5 [facility] Comment: An INR <2.0 [...] MD HEMATOLOGY ORDERABLE S Performing Organization Address City/[facility]/ZIP Co de Phone Number [facility] [place] [address] * Type and screen [place] (05/10/2024 2:20 AM EDT) ABORH Type O POSITIVE [facility] Patient BB History Not Found [facility] Expires at [id number] on: 05-13-2024 [facility] Ab Screen Interp Negative [facility] Blood 05/10/2024 2:20 AM EDT 05/10/2024 2:20 AM EDT Narrative [facility] - 05/10/2024 2:20 AM EDT This Type and Screen result is only valid at the [facility] Resulting Agency Comment Spec In Lab Tho Dickson MD BLOOD BANK LAB ORDER ANGELIQUE Performing Organization Address City/[facility]/ZIP Co de Phone Number [facility] [place] [address] * (ABNORMAL) Lactate, whole blood, send to lab ([facility]) (05/10/2024 2:20 AM EDT) Lactate WB 2.3(H) 0.5 - 2.2 mmol/L [facility] Blood 05/10/2024 2:20 AM EDT 05/10/2024 2:36 AM EDT Narrative Resulting Agency Comment Spec In Lab Tho Dickson MD CHEMISTRY ORDERABLES Performing Organization Address City/[facility]/ZIP Co de Phone Number [facility] [place] [address] documented in this encounter Visit Diagnoses Diagnosis [...] TIMES DAILY WITH MEALS, First dose on Sun05/11/24 at 0800, Until Discontinued, MEAL ASSOCIATED Give [...] 1 capsule, Oral, DAILY, First dose on 05/18/24 at 0900, Until Discontinued, Routine Given [...] over 4 Hours, Warning Vesicant/Irritant Medication Per biomedical equipment specialist labeling, do not administer or Y-site with [...] over 4 Hours, Warning Vesicant/Irritant Medication Per biomedical equipment specialist labeling, do not administer or Y-site with [...] Villalobos RN)1246 (Given - Provider: Trice Zhao, JACKIE)1318 (DEC Hold - Provider: Admin Adt - Reason: Transfer to a Procedural area)175 (MAR Unhold - Provider: Admin Adt)184 (Given - Provider: Trice Zhao RN) 0114 [...] (Due) 0641 (Given - Provider: Alyssa Villalobos RN)131 (DEC [...] on Sun05/19/24 at 2100, Until Discontinued, Routine 2039 (Given - Provider: Alyssa Villalobos RN) 131 (DEC Hold - Provider: Admin Adt - Reason: Transfer to a Procedural area)175 (DEC Unhold - Provider: Admin Adt)2109 (Given [...] meal try)1700 (Not Given - Provider: Yg R Prince, RN - Reason: NPO) 0800 (Not Given [...] 0832 (Given - Provider: Juan José Lai, JACKIE)1257 (Given - Provider: Juan José Lia RN) insulin lispro (HumaLOG;Admelog) (100 unit/mL) subcutaneous [...] parameters not met)1200 (Not Given - Provider: Tirce Zhao RN - Reason: Order parameters not [...] HOURS, First dose (after last modification) on [place] 05/18/24 at 1430, Until Discontinued, Routine 0258 [...] HOURS, First dose (after last modification) on [facility] 05/22/24 at 1230, Until Discontinued, Routine [...] documented as of this encounter Care Teams Knife Glazer Relationship 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
--- OUTSIDE RECORDS SUMMARY | 2024-06-06 16:31 | XMS_ITS | Encounter Summary ---
Author Organization [place] [id number] Care Team Providers Care Mechanical Press Operator Name Role Phone None Primary Care Provider Unavailabl e Reason for Visit * Auth/Cert (Routine) Specialty Diagnoses / Procedures Referred By Contac t Referred To Contact Diagnoses Septic shock septiic shock Procedures ER Tho Aquino MD [facility] [place] [address] [facility] Referral ID Status Reason Start Date Expiration Date Visits Re quested Visits Authorized [id number] 1 1 Encounter Details Date Type Department Care Team (Late st Contact Info) Description 05/22/2024 4:33 PM EDT Anesthesia [place] [address] Soledad Doyle MD [facility] [place] [address] Davie Le MD [facility] [place] [address] Anesthesia Record Procedure Summary Procedure Name Responsible [...] Procedure Summary Date: 05/22/24 Room / Location: [facility] ENDO 5 / [facility] ENDOSCOPY Anesthesia Start: 1633 Anesthesia Stop: 1649 Procedures: EGD, UPPER GI ENDOSCOPY (WRVU 2.09) (Trunk) EGD, W CONTROL OF BLEEDING, ANY METHOD (WRVU 3.56) EGD, W DIRECTED SUBMUCOSAL INJECTION(S) (WRVU 2.39) Diagnosis: (? melena) Surgeons: Jonn Mena MD Responsible Provider: Soledad Doyle MD Anesthesia Type: MAC ASA Status: 3 All Anesthesia Providers: Anesthesiologist: Soledad Doyle MD STORAGE RECEIPT POSTER: Gennaro Real CRNA Vitals Value Taken Time BP 168/83 05/22/24 1740 Temp Pulse Resp SpO2 97 % 05/22/24 1750 Pain Level 0 05/22/24 1745 Patient Location: PACU/[facility] Level of Consciousness: Conscious but Sleepy [...] Access Non-Dialysis 05/21/2024 Juan José Flowers MD [facility] INTERVENTIONL RAD PRO AMPUTATION METATARSAL+TOE, SINGLE Right 05/14/2024 AMPUTATION, TRANSMETATARSAL TOE, ONE TOE (WRVU 6.64) performed by Elkin Garcia MD at [facility] MAIN OR Social History Tobacco Use Smoking [...] 10:30 AM EDT Office [place] [address] Elkin Garcia MD [facility] [place] [address] documented as of this encounter Visit Diagnoses [...] mg documented in this encounter Care Teams Mechanical Press Operator Relationship 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
--- OUTSIDE RECORDS SUMMARY | 2024-06-06 16:32 | XMS_ITS | Encounter Summary ---
[place] [address] Care Team Providers Care Golf Tournament Consultant Name Role Phone None Primary Care Provider Unavailabl e Reason for Visit * Auth/Cert (Routine) Specialty Diagnoses / Procedures Referred By Contac t Referred To Contact Diagnoses Septic shock septiic shock Procedures ER Tho Aquino MD [facility] [place] [address] [facility] Referral ID Status Reason Start Date Expiration Date Visits Re quested Visits Authorized [id number] 1 1 Encounter Details Date Type Department Care Team (Late st Contact Info) Description 05/22/2024 1:00 PM EDT - 05/22/2024 1:30 PM EDT Surgery [place] [address] Jonn Mena MD [facility] [place] [address] EGD, UPPER GI ENDOSCOPY (WRVU 2.09) Social [...] Jossy Shanks Patient Age: 69 y.o. Language: Fijian Race: White Ethnicity: Not nor Admit date: [...] please contact your inpatient physician through the [facility] Well Logging Operator Mud Analysis . Issues afterhours and on weekends will [...] home oxygen, HFpEF, HTN who presented to [facility] for rt LE cellulitis, transferred to [facility] for septic shock. At end of March he dropped cylinder block on rt foot, bleeding and painful. Kept bandaged and sock on it, same sock on it for the last week, reports sock became fused to wound. Denies paresthesia. Wasable to walk w/out difficulty. In last several days erythema and edema spread upper Rt LE to knee. Fevers & chills for last 24hrs. [place] lightheaded, weak, & couldn't get out of [...] prior to OSH departure. On arrival to [facility]: HR 96, o2 sat mid 90s on [...] on vancomycin and Zosyn. Was also oliguric FIHS, suspected prerenal and improved with fluids. Did not require pressors, was transitioned to hospital medicine for further care, the same day as transfer to [facility]. On the general medicine floor, he was [...] border dressing. (Melgisorb Ag 6x6 PS # [id number]) (Melgisorb Ag 4x4 PS # [id number]) Sacrum/ischium: open to air, utilize Z-guard if [...] 05/10/2024 2:37 AM) Result Value WORKSTATION ID [id number] Impression Bibasilar atelectasis. Thank you for letting us participate in the care of this patient. If you are a health care provider and have any questions regarding this report, please contact the number below. For patients who have questions please contact the health healthcare advisory services manager that requested your imaging first. Electronically signed by: Yenni Ca MD, [facility] ([phone]), at 05/10/2024 3:27 AM MRI Foot wwo Contrast Right (Exam End: 05/10/2024 5:51 AM) Result Value WORKSTATION ID [id number] Impression 1. Soft tissue irregularity of the [...] have questions please contact the health healthcare advisory services manager that requested your imaging first. Electronically signed by: Trinidad Mota MD, [facility] ([phone]), at 05/10/2024 12:56 PM US Retroperitoneal Complete (Exam End: 05/20/2024 10:36 AM) Result Value WORKSTATION ID [id number] Impression 1. Very limited exam secondary to [...] AM Electronically signed by: Teofilo Ruiz MD, [facility] ([phone]), at 05/20/2024 11:30 AM Thank you for letting us participate in the care of this patient. If you are a health care provider and have any questions regarding this report, please contact the number above. For patients who have questions, please contact the health healthcare advisory services manager that requested your imaging first. Teofilo [...] Center 06/03/2024 2:00 PM Lu Mcfarland APRN [facility] ID 5C [facility] 06/05/2024 4:00 PM Elkin Garcia MD [facility] ORTH 3C [facility] Your Discharge Medication List Your Medications New [...] as much as possible. Call your doctor ([phone]) if you develop: Fever greater than 100.5 Severe nausea or vomiting Increasing pain that is not controlled by pain medications Increasing redness, swelling, or drainage from incisions Change in sensation FOLLOW-UP APPOINTMENTS: 1. You will have follow-up appointments at [facility] as indicated below in Future Appointment and Orders. 2. You will need to have x-rays prior to your follow-up appointment listed below. Please come to Radiology, desk 3T, 1 hour BEFORE that appointment for these x-rays. Future Appointments Date Time Provider Department Center 06/03/2024 2:00 PM Lu Mcfarland APRN [facility] ID 5C [facility] 06/05/2024 4:00 PM Elkin Garcia MD [facility] ORTH 3C [facility] If you have questions or concerns: Sunday [...] the day after the procedure, use an yyre-chi-bygwlqi spray to numb your throat. Sucking on [...] occurs, please contact your Doctor. Please call [phone] before 8pm Mon-Fri with problems, questions or concerns. If you call after 8pm or on weekends, call the Hospital at [phone] and ask to speak to the Peel Oven Tender automobile contract clerk and the pig conveyor operator will contact that person for you. When should you call for help? Call 561 anytime you think you may need emergency [...] any problems. Where can you learn more? [facility] View your After Visit Summary and more online at [email or web address] If you would like to provide feedback about your hospital experience, please call the Office of Patient and Family Relations at . If you have received this After Visit Summary in error, please immediately return it in person to the department, or notify the [facility] Privacy Office by calling toll free at between the hours of 8AM and 5PM to arrange for our retrieval of the documents at no cost to you. Content Version: 12.2 ?? 5527-5755 [employer]. Care instructions adapted under license by [facility]. If you have questions about a medical condition or this instruction, always ask your healthcare professional. [employer] disclaims any warranty or liability for your [...] is during regular working hours, please call [phone]. If it is after 5 pm or a weekend or holiday, call [phone] and ask for the Ferryboat Ticket Taker automobile contract clerk for Interventional Radiology. You have received medication [...] PM Lu Mcfarland APRN Infectious Disease at [facility] Arrive at: Private Chef Area 5C [phone] 06/05/2024 4:00 PM Elkin Garcia MD Orthopaedics at [facility] Arrive at: Private Chef Area 3C [phone] Future Orders Complete By Expires OPAT: Order / Recommendation for Post Discharge IV Antibiotic Management [[id number] CPT(R)] As directed Process Instructions: If no progress note charted, please enter Clinical details in comments. Scheduling Instructions: Comments: - If this order was signed greater than 72 hours prior to [facility] discharge, please call to confirm the accuracy of this order. Please Fax all results to: [facility] Program Infectious Disease Section [facility], [place] [address] FAX: - After hours, please contact the Infectious Disease Physician automobile contract clerk at . - Line care instructions - see flush/heparin orders. Facilities may follow organizational policies/practices regarding heparin. - halfway for medication administration/upsetter helper and catheter care/maintenance authorized. HD Line care [...] draw labs every Sunday fax results to [facility] at [phone]. Please draw labs off PICC line. Please see [facility] order for lab draw details. Please RN visit for IV ABX teaching and ongoing assessment. Long-Term for Medication Administration/Hookup and catheter care/maintenance: - Teach Patient/Caregiver goals/self-monitoring/therapy administration to independence per the Nursing Care Plan. - halfway visit frequency; initial, weekly and 2 PRN [...] 05/20/2024 11:36 am) PATIENT INFO: ID #: [id number].: [id number] (69 yrs)(M) Name: JOSSY SHANKS Visit Date: 05/20/2024 10:34 am PERFORMED BY: Attending: Teofilo Ruiz MD Resident: Trinidad Lgiht MD Performed By: Lulu Shin RDMS Referred By: SABA SPEARS Location: [place] SERVICE(S) PROVIDED: URETRO - Retroperitoneal Complete - [id number] INDICATIONS: CKD, increase BUN TECHNIQUE/SCAN QUALITY: Scan [...] 11:30 AMElectronically signed by: Teofilo Ruiz MD, [facility] ([phone]), at 05/20/2024 11:30 AM Thank you for letting us participate in the care of this patient. If you are a health care provider and have any questions regarding this report, please contact the number above. For patients whohave questions, please contact the health healthcare advisory services manager that requested your imaging first. Teofilo Ruiz, Staff Physician Electronically Signed Final Report 05/20/2024 11:36 am My clinical question: Patient to establish for CKD management Do not type below here [id number] Questions: My question or request is: See comment Provider Contact Information: None None None Discharge References/Attachments Low Phosphorus Foods: General Info (Fijian) Low Potassium Foods: General Info (Fijian) documented in this encounter Discharge Instructions * [...] the day after the procedure, use an gffz-kmr-dkpqirm spray to numb your throat. Sucking on [...] occurs, please contact your Doctor. Please call [phone] before 8pm Mon-Fri with problems, questions or concerns. If you call after 8pm or on weekends, call the Hospital at [phone] and ask to speak to the Peel Oven Tender automobile contract clerk and the pig conveyor operator will contact that person for you. [...] any problems. Where can you learn more? [facility] View your After Visit Summary and more online at [email or web address] If you would like to provide feedback about your hospital experience, please call the Office of Patient and Family Relations at . If you have received this After Visit Summary in error, please immediately return it in person to the department, or notify the [facility] Privacy Office by calling toll free at between the hours of 8AM and 5PM to arrange for our retrieval of the documents at no cost to you. Content Version: 12.2 ?? 8999-3806 [employer]an. Care instructions adapted under license by [facility]. If you have questions about a medical condition or this instruction, always ask your healthcare professional. [employer] disclaims any warranty or liability for your [...] is during regular working hours, please call [phone]. If it is after 5 pm or a weekend or holiday, call [phone] and ask for the Ferryboat Ticket Taker automobile contract clerk for Interventional Radiology. You have received medication [...] Center 06/03/2024 2:00 PM Lu Mcfarland APRN [facility] ID 5C [facility] 06/05/2024 4:00 PM Elkin Garcia MD [facility] ORTH 3C [facility] Your Discharge Medication List Your Medications New [...] as much as possible. Call your doctor ([phone]) if you develop: Fever greater than 100.5 Severe nausea or vomiting Increasing pain that is not controlled by pain medications Increasing redness, swelling, or drainage from incisions Change in sensation FOLLOW-UP APPOINTMENTS: 1. You will have follow-up appointments at [facility] as indicated below in Future Appointment and Orders. 2. You will need to have x-rays prior to your follow-up appointment listed below. Please come to Radiology, desk 3T, 1 hour BEFORE that appointment for these x-rays. Future Appointments Date Time Provider Department Center 06/03/2024 2:00 PM Lu Mcfarland APRN [facility] ID 5C [facility] 06/05/2024 4:00 PM Elkin Garcia MD [facility] ORTH 3C [facility] If you have questions or concerns: Sunday through Sunday, 8 AM - 5 PM, please call Dr. Saba Spears MD's office at . If it is after 5 PM, the weekend, or holidays, please call and ask to speak with theOrthopedic resident on-call. * Attachments The following attachments cannot be sent through Care Everywhere. * Low Phosphorus Foods: General Info (Fijian) * Low Potassium Foods: General Info (Fijian) documented in this encounter Medications at Time [...] spent >30 minutes (Day of Discharge Code 60091) involved in the final examination of the patient, discussion of the hospital stay, instructions for continuing care to all relevant caregivers, and preparation of discharge records, prescriptions and referral forms. Plans Discharge to [facility] rehab Follow-up scheduled with ID, ortho, provider at [facility] Please see the Discharge Summary for complete details of any medication changes and additional plans. * Yg Jaffe - 05/23/2024 2:44 PM EDT Office of Care Management(OCM)/Explosive Ordnance Specialist(RS) Patient Name: Jossy Shanks : 1955 Patient has been offered a SNF bed at [phone]. [facility] arranged for a BLS transport at 1530. Ambulance will need: Medicare ambulance form completed and signed (MD or It Field Technician) Copy of patient demographics [place] or [place] Out [facility] Hospital DNR/DNI order, if active No MD to MD report necessary. Please call Nursing Report to , ask for isotope technologist. Info to accompany patient: Narcotic Prescriptions Copies of Medication Administration Records and IV sheets for past two weeks. Plan: Explosive Ordnance Specialist will be available to the patient and It Field Technician for further assistance. Patient to discharge to: [facility] Yg Jaffe Explosive Ordnance Specialist * Shirley Samuel RN - 05/23/2024 12:05 PM EDT Physician Certification Statement for Non-Emergency Ambulance Services Section I - General Information Guanakojaren Allyssa Shanks 1955 Medicare Number: n/a Transport Date: 05/23/2024 (PCS is valid for round trips on this date and for all repetitive trips in the 60-day range as noted below.) Origin: [facility] Destination: [facility] Is the patient's stay [...] van (i.e. seated during transport, without medical director of hospice or monitoring?): No 4) In addition to [...] the Centers of Medicare and Medicaid Services ([facility]) to support the determination of medical [...] IMAGING: Reports and images personally reviewed in [facility]. Images independently interpreted. IR Tunneled Central [...] AM Electronically signed by: Teofilo Ruiz MD, [facility] ([phone]), at 05/20/2024 11:30 AM Thank you for letting us participate in the care of this patient. If you are a health care provider and have any questions regarding this report, please contact the number above. For patients who have questions, please contact the health healthcare advisory services manager that requested your imaging first. Teofilo [...] have questions please contact the health healthcare advisory services manager that requested your imaging first. Electronically signed by: Trinidad Mota MD, [facility] ([phone]), at 05/10/2024 12:56 PM XR Chest One View Final Result Bibasilar atelectasis. Thank you for letting us participate in the care of this patient. If you are a health care provider and have any questions regarding this report, please contact the number below. For patients who have questions please contact the health healthcare advisory services manager that requested your imaging first. Electronically signed by: Yenni Ca MD, [facility] ([phone]), at 05/10/2024 3:27 AM ENDOSCOPY: Reports and [...] with them as documented. Tl Steele MD [facility] Gastroenterology * Irene Bravo RN - 05/22/2024 [...] Zhao RN - 05/22/2024 12:47 PM EDT Adjunct Philosophy Faculty spoke with JACKIE Nuñez from Endo regarding [...] Galvan MD - 05/22/2024 6:57 AM EDT [facility] Medicine - Red Team Inpatient Progress Note [...] with PT - hoping to go to [facility] today Meds: pantoprazole 40 mg Intravenous BID furosemide 40 mg Oral QAM epoetin leah-epbx 10,000 Units Subcutaneous Daily insulin glargine (Lantus;Semglee) (100 unit/mL) subcutaneous injection 14 Units Subcutaneous Nightly lactobacillius capsule 1 capsule Oral Daily ipratropium-albuteroL 3 mL Nebulization Q4H insulin lispro 1-6 Units Subcutaneous Q4H [facility] cefTRIAXone 2 g Intravenous Q24H insulin lispro [...] upcoming EGD, and availability of bed at [facility]. -ordered T&S in case continues to [...] Medicine Hospital Medicine Red Team - Pager [phone] Associated attestation - Saba Spears MD - [...] will transfuse and monitor response. Dispo to [facility] for rehab pending Hgb stability and EGD. I have examined the patient myself and personally reviewed all studies. In addition, I certify thatI am a D-H credentialed attending provider with admitting privileges and that the patient meets or has met medical necessity to require an inpatient IPI level of care meeting a minimum of two midnights or is on the [facility] inpatient only procedure list (status C) due to: OM requiring IV abx * Lazaro Aaron, LOCOMOTIVE FIRER/FIREMAN - 05/21/2024 4:05 PM EDT Physical Therapy [...] with stable vital signs. Total Time: 34 (7974-4817) minutes. TAx2 Lazaro Aaron PTA Pager: [phone] Physical Therapy Inpatient Rehabilitation Department * Penny [...] decreased insight into deficits Vision: corrective lenses maritime engineer Endurance: decreased activity tolerance Vitals: Stable [...] 2-3 times/wk Total Minutes, Occupational Therapy: 40 ([facility] x3 ([phone])) Pager: [phone] Penny Rodriguez OT Occupational Therapy Rehabilitation Department [...] : 1955 AGE: 69 y.o. Address: [address] [place] [id number] (home) Mobile: Telephone Information: Referring Provider: Anna [...] Galvan MD - 05/21/2024 6:[address] [facility] Medicine - Red Team Inpatient Progress [...] Medicine Hospital Medicine Red Team - Pager [phone] Associated attestation - Saba Spears MD - [...] mid 7s. Appreciate GI consult. Dispo to [facility] pending Hgb and EGD. I have examined the patient myself and personally reviewed all studies. In addition, I certify thatI am a D-H credentialed attending provider with admitting privileges and that the patient meets or has met medical necessity to require an inpatient IPI level of care meeting a minimum of two midnights or is on the [facility] inpatient only procedure list (status C) [...] Galvan MD - 05/20/2024 6:20 AM EDT [facility] Medicine - Red Team Inpatient Progress Note [...] Pip-tazo and vanc c/w CTX Planning for [facility] central line, instead of PICC Has offloading [...] Mihaela Galvan MD 05/20/2024 PGY-3, Internal Medicine [facility] Medicine Red Team - Pager [phone] Associated [...] Ho PT, Doctor of Physical Therapy Pager: [phone] Physical Therapy Inpatient Rehabilitation Department * Rebeca [...] decreased insight into deficits Vision: corrective lenses maritime engineer Endurance: decreased activity tolerance Vitals: Stable [...] times/wk Total Minutes, Occupational Therapy: 47 Pager: [phone] Rebeca Moeller OT Occupational Therapy Rehabilitation Department * Mihaela Galvan MD - 05/19/2024 6:43 AM EDT [facility] Medicine - Red Team Inpatient Progress Note [...] Medicine Hospital Medicine Red Team - Pager [phone] Associated attestation - Saba Spears MD - [...] for a hospital day 9 nutrition evaluation. Adjunct Philosophy Faculty met with pt at bedside. Pt saidhe [...] unless consulted in the interim. Julissa Weathers Fuel Cell Engineer * Mihaela Galvan MD - 05/18/2024 7:[address] [facility] Medicine - Red Team Inpatient Progress [...] Medicine Hospital Medicine Red Team - Pager [phone] Associated attestation - Saba Spears MD - [...] of two midnights or is on the [facility] inpatient only procedure list (status C) [...] Harrison MD - 05/17/2024 6:28 AM EDT [facility] Medicine - Red Team Inpatient Progress Note [...] Meds: insulin lispro 1-6 Units Subcutaneous Q4H [facility] insulin glargine (Lantus;Semglee) (100 unit/mL) subcutaneous [...] José Harrison MD 05/17/2024 PGY-3, Internal Medicine [facility] Medicine Red Team - Pager [phone] Associated attestation - Saba Spears MD - [...] 6.64) performed by Elkin Garcia MD at [facility] MAIN OR Active Non-Hospital Problems [...] [place] PT, Doctor of Physical Therapy Pager: [phone] Physical Therapy Inpatient Rehabilitation Department * Emmanuel [...] Component Value - Date/Time MRSA PCR Screen ([facility]/CGP/APD/NLH) [[id number]] Collected: 05/15/24 1615 Lab Status: Final result Specimen: Nasopharyngeal Swab Updated: 05/15/242012 MRSA Result Negative MRSA Interp -- Methicillin-resistant Staphylococcus aureus (MRSA) is NOT DETECTED The MRSA target DNA sequences (mec and SCC) were not detected within the acceptable ranges using the Xpert MRSA NxG on the GeneXpert Dx System ([employer]undera). This suggests the absence of MRSA in the patient specimen submitted for testing. This test is cleared by the U.S. Food and Drug Administration for clinical use and its performance characteristics have been verified by the [facility] at [facility]. This result does not rule out the presence of any other organisms. Rare false negative results may occur if MRSA is present at low concentrations with much higher concentrations of other organisms including MRSE or S. aureus with an empty SCC cassette. Comment: [VERIFIED DATE]05.15.24 Verified By:Lupe Jensen (Electronic Signature) Tissue Culture, Aerobic & Anaerobic Toe [[id number]] (Abnormal) Collected: 05/14/24 1133 Lab Status: Preliminary result Specimen: Toe Updated: 05/15/24 1212 Tissue culture [[id number]] (Abnormal) Collected: 05/14/24 1133 Lab Status: Preliminary result Specimen: Toe Updated: 05/15/24 121 Tissue Culture No growth to date. Gram Stain -- Few Neutrophils seen Rare Gram Positive Cocci in pairs seen Results called to and read back by Dr. Mihaela Galvan 05/14/24 14:57:00 Organism Gram Positive Cocci in pairs Anaerobic Culture [[id number]] Collected: 05/14/24 1133 Lab Status: Preliminary result Specimen: Toe Updated: 05/15/24 1124 Anaerobic Culture No anaerobic organisms isolated to date Blood culture [[id number]] Collected: 05/10/24 0232 Lab Status: Final result Specimen: Blood from Hand, Right Updated: 05/15/24 0701 Blood Culture No growth at 5 days. Skin/Superficial Wound Culture Toe [[id number]] (Abnormal) Collected: 05/10/24 0256 Lab Status: Final [...] follow. Please page ID Red team (pager [phone]) with questions or concerns. Emmanuel Corey, DO Internal Medicine PGY-2 Pager: [phone] Epic Chat 05/16/2024 Associated attestation - Rodriguez [...] from the original note were not included. [facility] Red Team Inpatient Progress Note ID: [...] Component Value - Date/Time MRSA PCR Screen ([facility]/CGP/APD/[facility]H) [[id number]] Collected: 05/15/24 1615 Lab Status: Final result Specimen: Nasopharyngeal Swab Updated: 05/15/242012 MRSA Result Negative MRSA Interp -- Methicillin-resistant Staphylococcus aureus (MRSA) is NOT DETECTED The MRSA target DNA sequences (mec and SCC) were not detected within the acceptable ranges using the Xpert MRSA NxG on the GeneXpert Dx System ([place]undera). This suggests the absence of MRSA in the patient specimen submitted for testing. This test is cleared by the U.S. Food and Drug Administration for clinical use and its performance characteristics have been verified by the [facility] at [facility]. This result does not rule out the presence of any other organisms. Rare false negative results may occur if MRSA is present at low concentrations with much higher concentrations of other organisms including MRSE or S. aureus with an empty SCC cassette. Comment: [VERIFIED DATE]05.15.24 Verified By:Lupe Jensen (Electronic Signature) Tissue Culture, Aerobic & Anaerobic Toe [[id number]] (Abnormal) Collected: 05/14/24 113 Lab Status: Preliminary result Specimen: Toe Updated: 05/15/24 121 Tissue culture [[id number]] (Abnormal) Collected: 05/14/24 113 Lab Status: Preliminary result Specimen: Toe Updated: 05/15/24 121 Tissue Culture No growth to date. Gram Stain -- Few Neutrophils seen Rare Gram Positive Cocci in pairs seen Results called to and read back by Dr. Mihaela Galvan 05/14/24 14:57:00 Organism Gram Positive Cocci in pairs Anaerobic Culture [[id number]] Collected: 05/14/24 113 Lab Status: Preliminary result Specimen: Toe Updated: 05/15/24 1124 Anaerobic Culture No anaerobic organisms isolated to date Blood culture [[id number]] Collected: 05/10/24 0232 Lab Status: Final result Specimen: Blood from Hand, Right Updated: 05/15/24 0701 Blood Culture No growth at 5 days. Skin/Superficial Wound Culture Toe [[id number]] (Abnormal) Collected: 05/10/24 0256 Lab Status: Final [...] PGY-1, Internal Medicine Red Team - Pager [phone] Associated attestation - Treva Diaz MD - [...] likely suture removal on 06/05/24. Please page [phone] with any questions or concerns. Activity: NWB until forefoot offloading shoe DVT prophylaxis: per primary, rec 30 days LVX or ASA81 BID Closure: Sutures (to be removed at Orthopaedic follow-up appointment) Dressing: bacitracin, xeroform, 4x4, kerlix, DEREK x 7 days Antibiotics: per primary Isra Rodriguez IV, DO 05/16/2024 Future Appointments Date Time Provider Department Center 06/05/2024 4:00 PM Elkin Garcia MD [facility] * Mihaela Galvan MD - 05/15/2024 6:41 AM EDT Images from the original note were not included. [facility] Medicine - Red Team Inpatient Progress Note [...] Procedure Component Value - Date/Time Tissue culture [[id number]] (Abnormal) Collected: 05/14/24 1133 Lab Status: Preliminary result Specimen: Toe Updated: 05/14/24 1459 Gram Stain -- Few Neutrophils seen Rare Gram Positive Cocci in pairs seen Results called to and read back by Dr. Mihaela Galvan 05/14/24 14:57:00 Organism Gram Positive Cocci in pairs Blood culture [[id number]] Collected: 05/10/24 0232 Lab Status: Preliminary result Specimen: Blood from Hand, Right Updated: 05/14/24 0701 Blood Culture No growth at 4 days. Skin/Superficial Wound Culture Toe [[id number]] (Abnormal) Collected: 05/10/24 0256 Lab Status: Final [...] PGY-1, Internal Medicine Red Team - Pager [phone] Associated attestation - Treva Diaz MD - [...] of two midnights or is on the [facility] inpatient only procedure list (status C) [...] Center 06/05/2024 4:00 PM Elkin Garcia MD [facility] * Savannah Sy RN - 05/14/2024 1:45 [...] Center 06/05/2024 4:00 PM Elkin Garcia MD [facility] * Mihaela Galvan MD - 05/14/2024 6:04 AM EDT [facility] Medicine - Red Team Inpatient Progress Note [...] PGY-1, Internal Medicine Red Team - Pager [phone] Associated attestation - Treva Diaz MD - [...] of two midnights or is on the [facility] inpatient only procedure list (status C) [...] OR for the above procedure. Please page [phone] if there are any concerns regarding OR [...] Galvan MD - 05/13/2024 6:28 AM EDT [facility] Medicine - Red Team Inpatient Progress Note [...] PGY-1, Internal Medicine Red Team - Pager [phone] Associated attestation - Treva Diaz MD - [...] of two midnights or is on the [facility] inpatient only procedure list (status C) due to: RLE cellulitis with concern forosteomyelitis. Continue on iv antibiotics and follow up with orthopedics regarding any surgical debridement . * Sarwat Marti - 05/12/2024 2:20 PM EDT Heater Engineer Helper Encounter Note Patient Name: Jossy Shanks : [id number] MR#: [id number] Admit Date: 05/10/2024 2:12 AM Hospital Day 2 days Narrative:Visited to introduce and assess acceptance of Heater Engineer Helper services. Patient was sleeping and I will visit an other time. Assessment: Intervention and Outcome: Follow-up: Time in Direct Care: Sarwat Marti 05/12/2024 * Mihaela Galvan MD - 05/12/2024 6:36 AM EDT [facility] Medicine - Red Team Inpatient Progress Note [...] PGY-1, Internal Medicine Red Team - Pager [phone] Associated attestation - Treva Diaz MD - [...] of two midnights or is on the [facility] inpatient only procedure list (status C) due to: RLE cellulitis with concern forosteomyelitis. Continue on iv antibiotics and discuss with orthopedics regarding any urgent need for surgical debridement. 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 Interval Events: - lactate [...] 05/10/2024 2:37 AM) Result Value WORKSTATION ID [id number] Impression Bibasilar atelectasis. Thank you for letting us participate in the care of this patient. If you are a health care provider and have any questions regarding this report, please contact the number below. For patients who have questions please contact the health healthcare advisory services manager that requested your imaging first. Electronically signed by: Yenni Ca MD, [facility] ([phone]), at 05/10/2024 3:27 AM MRI foot pending [...] Thomas MD - 05/10/2024 2:56 AM EDT [facility] TeleICU Initial Assessment Note I established audio/visual [...] hour(s)) Lactate, whole blood, send to lab ([facility] Result Value Lactate WB 2.3 (H) Prothrombin [...] infection if clinical appearance is worrisome -Awaiting [facility] admission K+ level and Chem 7 -Would [...] indication: Osteomyelitis, central venous access required for care home antibiotic use IR workflow: Procedure request received through Interventional Radiology eDH order queue. There are no answered order specific questions. History of Present Illness: Per chart review, Jossy Shanks is a 69 y.o. male with PMH of CKD, DM,COPD, A.fib, admitted for RLE cellulitis and osteomyelitis s/p 2ng toe amputation requiring care home IV antibiotic administration who presents to Interventional [...] medical record. IR History: None listed at [facility] Anticoagulation/Antiplatelet: None listed Labs: Lab Results Component [...] Assessment: 69 y.o. 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 There are no answered order specific questions. History of Present Illness: Per chart review, Jossy Shanks is a 69 y.o. male with PMH of CKD, DM,COPD, A.fib, admitted for RLE cellulitis and osteomyelitis s/p 2ng toe amputation requiring care home IV antibiotic administration who presents to Interventional [...] medical record. IR History: None listed at [facility] Anticoagulation/Antiplatelet: None listed Labs: Lab Results Component [...] Assessment: 69 y.o. male with OM requiring care home IV ABX presenting to Interventional Radiology for [...] 6.64) performed by Elkin Garcia MD at [facility] MAIN OR Social History and [...] amputation. Isra Rodriguez IV, DO Orthopaedic Surgery [facility] * Carlotta Davis MD - 05/10/2024 [...] on home oxygen, HFpEF, HTN, admitted to [facility] on 05/10/2024, now on Hospital Day #0, for RLE cellulitis SUBJECTIVE History of Present Illness: Per admitting provider Jossy Shanks is a 69 y.o. year old male with PMH significant for IDDM, Afib rate controlled, CKD (bsl cr 1.5), COPD not on home oxygen, HFpEF, HTN who presented to [facility] for rt LE cellulitis, transferred to [facility] for RLE cellulitis after trauma to his [...] knee. Fevers & chills for last 24hrs. [place] lightheaded, weak, & couldn't get out of [...] prior to OSH departure. 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 Invalid input(s): [id number] Recent Labs 05/10/24219 HA1C 5.9* Lipids: Heme: No results for input(s): LDH, HAPTOGLOBIN, URICACID in the last 168 hours. ABG (Arterial Blood Gas): No results found for: PHART, PO2ART, GBP3VXG, IXU4GRC VBG (Venous Blood Gas): No results for input(s): PHVEN, JYL5KCG, PO2VEN, DQC5TNO, BEVEN, WGJ2YYE in the last 72hours. EKG: No results [...] 05/10/2024 2:37 AM) Result Value WORKSTATION ID [id number] Impression Bibasilar atelectasis. Thank you for letting us participate in the care of this patient. If you are a health care provider and have any questions regarding this report, please contact the number below. For patients who have questions please contact the health healthcare advisory services manager that requested your imaging first. Electronically signed by: Yenni Ca MD, [facility] ([phone]), at 05/10/2024 3:27 AM MRI Foot wwo Contrast Right (Exam End: 05/10/2024 5:51 AM) Result Value WORKSTATION ID [id number] Impression 1. Soft tissue irregularity of the [...] have questions please contact the health healthcare advisory services manager that requested your imaging first. Electronically signed by: Trinidad Mota MD, [facility] ([phone]), at 05/10/2024 12:56 PM Medications: Scheduled: [START [...] controlled Afib (Xarelto, dilt, coreg), admitted to [facility] on 05/10/2024, now on Hospital Day #0, [...] Internal Medicine PGY2 Medicine Team: Red, Pager #[phone] Associated attestation - Treva Diaz MD - [...] home oxygen, HFpEF, HTN who presented to [facility] for rt LE cellulitis, transferred to [facility] for septic shock. Reports end of March [...] knee. Fevers & chills for last 24hrs. [place] lightheaded, weak, & couldn't get out of [...] prior to OSH departure. On arrival to [facility]: HR 96, o2 sat mid 90s on [...] mobilizes w/out assistance. Darion Morgan is DPOA; [phone] Physical Exam: Vitals: Last value Range last [...] Medicine, PGY2 05/10/2024 MICU Blue Team Pager #[phone] documented in this encounter Procedure Notes * Juan José Flowers MD - 05/21/2024 11:49 AM EDT IR PROCEDURE NOTE Procedure: Tunneled central venous catheter placement. Indication for Procedure: Per Guanako Saldanajaren Shanks is a 69 y.o. 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 Needs for Transition of Care: Plan for discharge is: Long-Term Facility / Swing OPAT Orders: ID Consult Ordered Agency Referrals & Follow-up Care: Contact information for follow-up [facility] [address] [place] [address] [place] [address] Transportation: family or friend will provide Wheelchair [...] through: Primary Insurance: [employer] MANAGED MEDICARE Payor: [employer] MANAGED MEDICARE / Plan: [facility] MANAGED MEDICARE COMPLETE / Product Type: *No Product type* / Secondary Insurance: N/A Prescription Coverage: Yes This plan was formulated with input from patient and team. All are in agreement with plan. Shirley Samuel RN CM Accounts Receivable Administrator- Medicine Office of Care Management Ext: [phone] Pager: [phone] * Plan of Care - Juan José [...] and were able to stop the bleeding. Adjunct Philosophy Faculty carolyn a hemoglobin when patient got back [...] Operative Note Patient Name: Jossy Shanks : [id number] MR#: [id number] Case Date: 05/22/2024 Surgeon: Surgeons and Role: [...] Access Non-Dialysis 05/21/2024 Juan José Flowers MD [facility] INTERVENTIONL RAD PRO AMPUTATION METATARSAL+TOE, SINGLE Right 05/14/2024 AMPUTATION, TRANSMETATARSAL TOE, ONE TOE (WRVU 6.64) performed by Elkin Garcia MD at [facility] MAIN OR SOCIAL HX: Social [...] AM Electronically signed by: Teofilo Ruiz MD, [facility] ([phone]), at 05/20/2024 11:30 AM Thank you for letting us participate in the care of this patient. If you are a health care provider and have any questions regarding this report, please contact the number above. For patients who have questions, please contact the health healthcare advisory services manager that requested your imaging first. Teofilo [...] have questions please contact the health healthcare advisory services manager that requested your imaging first. Electronically signed by: Trinidad Mota MD, [facility] ([phone]), at 05/10/2024 12:56 PM XR Chest One View Final Result Bibasilar atelectasis. Thank you for letting us participate in the care of this patient. If you are a health care provider and have any questions regarding this report, please contact the number below. For patients who have questions please contact the health healthcare advisory services manager that requested your imaging first. Electronically signed by: Yenni Ca MD, [facility] ([phone]), at 05/10/2024 3:27 AM ENDOSCOPY: Reports and images personally reviewed in H OSH RECORDS: Obtained and personally reviewed ASSESSMENT & PLAN: 69 y.o. male with past medical history of [facility] of HTN, HFpEF, CKD (bsl Cr [...] anticoagulation and significant anemia. Tl Steele MD [facility] Gastroenterology * Plan of Care - Pretty [...] Pain Flowsheets (Taken 05/20/2024802) Pain Management Interventions: ijavmq-qqu-rwgci dosing utilized breathing exercises care clustered diversional [...] to be determined Plan for discharge is: Long-Term Facility / Swing Outpatient Agency/Support Group Needs: Homecare agency OPAT Orders: ID Consult Ordered Location: Home Home Health Services: IV Therapy Agency Referrals: Based on discussions with the multi-disciplinary healthcare team, the patient would benefit from SNF level of care at discharge. I have met with the patient to: discuss discharge planning needs. provide the [facility], Office of Care Management letter from the Adult Health Clinical Nurse Specialist pertaining to rehab referrals. provide a letter describing our affiliations within the [facility] and educate about their right to choose where referrals are sent. provide the CMS Star Quality Rating handout. review the different levels of rehab including SNF, swing, and acute. provide a list of facilities within their preferred geographic area. request that they provide at least three choices for referral. They have requested referrals to: [facility] ([facility]) [address] [place] [address] [facility] [address] [place] [address] -OFFERED BED, PENDING INSURANCE AUTHORIZATION 05/20 130[address] [facility] [address] [place] [address] [facility] [address] [place] [address] [facility]) [address] [place] [address] (Accepts pts only after exhausting all other local SNF options) Does patient have COVID vaccine card: Yes; Copy obtained: No Note routed to a Explosive Ordnance Specialist who will communicate referrals to facilities and provide any required information. Transportation: family or friend will provide Barriers to discharge: Discharge planning Plan going forward: Referrals routed for SNF/Swing. Care Management will continue to follow and assist with discharge planning and coordination of care as indicated. Anticipated Date of Discharge: 05/21/2024 Shirley Samuel RN CM Accounts Receivable Administrator- Medicine Office of Care Management Ext: [phone] Pager: [phone] * Plan of Care - Pretty Ramirez [...] shock at his time of transfer to [facility]. Creatinine on admission was 3.94 mg/dL, [...] 6.64) performed by Elkin Garcia MD at [facility] MAIN OR insulin glargine-ygfn (Semglee) [...] Flowsheets (Taken 05/18/2024 0838) Pain Management Interventions: jxlvhy-gni-kfmbh dosing utilized care clustered diversional activity provided [...] television Taken 05/15/2024 1825 Pain Management Interventions: pljogt-ims-mpnsg dosing utilized position adjusted pillow support provided [...] smartphone Taken 05/15/2024 1825 Pain Management Interventions: lqjbnp-hpi-cjgqu dosing utilized position adjusted pillow support provided [...] 6.64) performed by Elkin Garcia MD at [facility] MAIN OR Active Non-Hospital Problems [...] Perception: WNL / WFL and corrective lenses maritime 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 Total Minutes, Occupational Therapy: 90 (evaluation ([id number])) 2017 OT Evaluation Code Rationale: Diagnosis & [...] and measurable assessment of functional outcome. Pager: [phone] Penny Rodriguez OT 05/16/2024 Occupational Therapy Rehabilitation [...] have. Alternately, during off-hours you may call [phone] to contact a pharmacist. * Consult Note [...] briefly on vasopressors, and then transferred to [facility] for further management. 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 05/14. Reports a hx of cellulitis in the Left leg back in 2009 for which he states he did a course of 6 week son IV abx from [facility]. Has gotten cellulitis about half [...] Procedure Component Value - Date/Time Blood culture [[id number]] Collected: 05/10/24 0232 Lab Status: Final result Specimen: Blood from Hand, Right Updated: 05/15/24 0701 Blood Culture No growth at 5 days. Tissue culture [[id number]] (Abnormal) Collected: 05/14/24 1133 Lab Status: Preliminary result Specimen: Toe Updated: 05/14/24 1459 Gram Stain -- Few Neutrophils seen Rare Gram Positive Cocci in pairs seen Results called to and read back by Dr. Mihaela Galvan 05/14/24 14:57:00 Organism Gram Positive Cocci in pairs Skin/Superficial Wound Culture Toe [[id number]] (Abnormal) Collected: 05/10/24 0256 Lab Status: Final [...] follow. Please page ID Red team (pager [phone]) with questions or concerns. Emmanuel Corey, DO Internal Medicine PGY-2 Pager: [phone] Epic Chat 05/15/2024 Associated attestation - Rodriguez [...] Home Health Services: IV Therapy Agency Referrals: [place] [address] or Home Care Orders: 1. IV Antibiotics: [...] to discharge: Discharge planning Plan going forward: [facility] routed and pended. [facility] routed. Care Management will continue to follow and assist with discharge planning and coordination of care as indicated. Anticipated Date of Discharge: 05/19/2024 Shirley Samuel RN CM Accounts Receivable Administrator- Medicine Office of Care Management Ext: [phone] Pager: [phone] * Plan of Care - Christine Ronquillo [...] Pt in agreement. Pt POC BG @ [phone]. Pt denies pain. 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 Surgical Infection Prevention Bundle Used? N/A Attestation: Case Date: 05/14/2024 I was present and I participated during the entire procedure (does not need to include opening and closing). Elkin Garcia MD 05/14/2024 * Consult Note - Hakeem Villa [facility] - 05/14/2024 7:15 AM EDT [facility] Pharmacokinetics Note Drug: Vancomycin Pharmacokinetic target: AUC24 (range) 400-600 mg/L.hr Jossy Shanks is a 69-year-old male receiving intermittent Vancomycin doses Recent measured serum creatinine values: 05/14/2024 05:01 1.56 mg/dL 05/13/2024 05:29 1.53 mg/dL 05/12/2024 04:45 2.03 mg/dL Assessment: Analysis of the most recent level(s) using [employer] gives the following patient-specific pharmacokinetic parameters: CL: [...] controlled Afib (Xarelto, dilt, coreg), admitted to [facility] on 05/10/2024 with LE cellulitis 2/2 right foot trauma. Reason for intervention: Diet order question - what type of carb control diet does pt need? Nutrition Recommendations: Carb control level 3 diet Monitor po intake Monitor blood glucose levels Monitor weight trends I was able to discuss plan with provider Medicine Pager Red [phone] . Nutrition consult received regarding what type of carb control diet pt needs. Estimated nutrition needs based on ideal body weight of 89kg: Calories: 4691-0541 calories (20-25kcal/kg) Protein: 89-107g (1-1.2g/kg) Nutrition to [...] border dressing. (Melgisorb Ag 6x6 PS # [id number]) (Melgisorb Ag 4x4 PS # [id number]) Sacrum/ischium: open to air, utilize Z-guard if patient begins to have breakdown Supplies left at the bedside: 1 sheet of Melgisorb Ag, wound cleanser Wound Care will complete the consult at this time. If there are further issues please re-consult via eD-H. Discussed plan with: RN: Don Please contact Keeley Russell RN on eDH secure chat or the wound care team on pager [phone] with skin and wound care concerns or [...] surrogate would be surrogate decision maker per [place] decision making law. (Only good for 180 days) Son CONRADO Any patient receiving care in [place] must abide by [place] law. The hierarchy for surrogate decision making [...] (i) The agent with financial power of architectural drafting instructor or a conservator appointed in accordance with [...] Current DME: none Home Address listed as: [address] [place] [address] Pt is not currently residing here. Current address is as below: [place] [address] Social & Family Supports: All names listed below confirmed with patient as current and correct Extended Emergency Contact Information Primary Emergency Contact: Eddie Shanks Mobile Relation: Son/Cmqeqcmk-ky-jam Secondary Emergency Contact: Gifty Bucio [facility] Relation: Mother Current Care Provided by: [...] Pertinent/Service Specific Information: Health/Prescription Coverage: Primary Insurance: [employer] [facility] OOS Payor: [facility] [employer] [facility] OOS / Plan: [facility] OOS PPO / Product Type: *No Product type* / Secondary Insurance: N/A ; Prescription Coverage: Yes Preferred Pharmacy: [id number] - [place], [place] - [address] [facility] [id number] Primary Care Provider listed: None None Pt does have PCP in [facility] Patient/Caregiver Goals of Treatment: Potential Needs for Transition of Care: none, home health care Agency Referrals: I have met with the patient to: discuss discharge planning needs. provide the [facility], Office of Care Management letter from the Adult Health Clinical Nurse Specialist pertaining to rehab referrals. provide a letter describing our affiliations within the [facility] and educate about their right to choose where referrals are sent. provide a list of Home Health Agencies / Durable Medical Equipment vendors which serve their preferred geographic area. provided patient with [facility] Star Quality Rating handout. They have requested referrals to: [facility] [address] [place] [address] Note routed to a Explosive Ordnance Specialist who will communicate referrals to facilities and [...] wait list for housing (an apartment) in [place], [place]; ETA for move-in is 4-8weeks. He does not feel that his local family members would be able to house him in the interim andexpresses that he is comfortable in his camper, which has amenities. He is fully independent at baseline but has used [facility] health in the past; a referral [...] Clinical Pharmacist Note - VancFD Jossy Shanks [id number] 1955 Jossy Shanks is a 69 y.o. [...] Alternately, during off-hours (9p-) you may call [phone] to contact a pharmacist. Rodriguez Sinclair RPH [...] intact shoulder abduction, elbow flexion/extension, wrist flexion/extension, qa software tester, EPL, AIN, IO Brisk capillary refill distally [...] intact shoulder abduction, elbow flexion/extension, wrist flexion/extension, qa software tester, EPL, AIN, IO Brisk capillary refill distally [...] changes develop in his course. Please page [phone] following completion of requestedimaging and studies. - Activity: no restrictions at this time - DVT prophylaxis: per primary; recommend lovenox 30 mg BID - Antibiotics: per ID - Imaging / studies needed: MRI wwo contrast, ABIs, ESR, CRP Tyrone Rehman MD Orthopaedic Surgery, 1450 documented in this encounter Plan of Treatment Upcoming Encounters Date Type Department Care Team (Late st Contact Info) Description 06/10/2024 10:30 AM EDT Office [place] [address] Elkin Garcia MD [facility] [place] [address] Scheduled Referrals Name Type Priority Associated Diagnoses [...] EDT Upper Gi Endoscopy, W/Dir Submuc Inj ([id number]) 05/22/2024 4:39 PM EDT ? melena Upper Gi Endoscopy, Ctrl Bleed ([id number]) 05/22/2024 4:39 PM EDT ? melena Upper GI Endoscopy, Diagnostic ([id number]) 05/22/2024 4:39 PM EDT ? melena UPPER [...] - 199 mg/dL 05/23/2024 12:32 PM EDT [facility] Comment:Supplemental ranges: <140 mg/dL before meals <180 mg/dL all other times of the day. Blood CAPILLARY BLOOD / Unknown 05/23/2024 12:32 PM EDT 05/23/2024 12:32 PM EDT Saba Spears MD POINT OF CARE TEST ORDERABLES Performing Organization Address City/State/[facility] Co de Phone Number [facility] [place] [address] * (ABNORMAL) Basic Metabolic Panel (05/23/2024 9:46 AM EDT) Glucose 142 65 - 199 mg/dL 05/23/2024 11:27 AM EDT [facility] Comment:Glucose Concentratio n >=200 mg/dL plus symptoms is consistent with Diabetes Mellitus. Blood Urea Nitrogen 83(H) 10 - 20 mg/dL 05/23/2024 11:27 AM EDT [facility] Creatinine 2.64(H) 0.80 - 1.50 mg/dL 05/23/2024 11:27 AM EDT [facility] Sodium 140 135 - 145 mMol/L 05/23/2024 11:27 AM [facility] Potassium 5.2(H) 3.5 - 5.0 mMol/L 05/23/2024 11:27 AM [facility] Chloride 111(H) 98 - 107 mMol/L 05/23/2024 11:27 AM [facility] Carbon Dioxide 20(L) 22 - 31 mMol/L 05/23/2024 11:27 AM [facility] Anion Gap 9 5 - 15 mMol/L 05/23/2024 11:27 AM [facility] Calcium 9.3 8.5 - 10.5 mg/dL 05/23/2024 11:27 AM [facility] Est Glomerular Filtration Rate - Male 25 mL/min/1. 73 m?? 05/23/2024 11:27 AM [facility] Comment: This patient's estimated GFR [...] EDT Saba Spears MD CHEMISTRY ORDERABLE S [facility] [place] [address] * (ABNORMAL) CBC (with Diff) (05/23/2024 9:46 AM EDT) White Blood Cell 12.66(H) 4.00 - 9.50 x10(3)/mc L 05/23/2024 10:52 AM [facility] Red Blood Cell 2.56(L) 4.58 - 5.54 x10(6)/mc L 05/23/2024 10:52 AM [facility] Hemoglobin 7.7(L) 13.7 - 16.5 g/dL 05/23/2024 10:52 AM [facility] Hematocrit 24.3(L) 40.5 - 48.5 % 05/23/2024 10:52 AM [facility] Mean Cell Volume 94.9(H) 82.9 - 93.1 fL 05/23/2024 10:52 AM [facility] Mean Cell Hemoglobin 30.1 27.5 - 32.1 pg 05/23/2024 10:52 AM [facility] Mean Cell Hemoglobin Concentration 31.7(L) 32.0 - 35.7 g/dL 05/23/2024 10:52 AM [facility] Platelet 370(H) 145 - 357 x10(3)/mc L 05/23/2024 10:52 AM [facility] Mean Platelet Volume 11.6 7.6 - 12.9 fL 05/23/2024 10:52 AM [facility] RDW Standard Deviation 57.1(H) 36.0 - 45.0 fL 05/23/2024 10:52 AM [facility] RDW coefficient of variation 16.9(H) 11.4 - 13.8 % 05/23/2024 10:52 AM [facility] NRBC% auto 0.0 % 05/23/2024 10:52 AM [facility] NRBC Absolute 0.00 0.00 - 0.00 x10(3)/mc L 05/23/2024 10:52 AM [facility] Neutrophil % 81.6 % 05/23/2024 10:52 AM EDT [facility] Neutrophil Absolute 10.34(H) 1.70 - 6.10 x10(3)/mc L 05/23/2024 10:52 AM EDT [facility] Lymph % 5.1 % 05/23/2024 10:52 AM EDT [facility] Lymph Absolute 0.64(L) 0.90 - 3.20 x10(3)/mc L 05/23/2024 10:52 AM EDT [facility] Monocyte % 10.7 % 05/23/2024 10:52 AM EDT [facility] Monocyte Absolute 1.35(H) 0.30 - 0.90 x10(3)/mc L 05/23/2024 10:52 AM EDT [facility] Eos % 1.7 % 05/23/2024 10:52 AM EDT [facility] Eos Absolute 0.22 0.00 - 0.40 x10(3)/mc L 05/23/2024 10:52 AM EDT [facility] Basophil % 0.3 % 05/23/2024 10:52 AM EDT [facility] Baso Absolute 0.04 0.00 - 0.10 x10(3)/mc L 05/23/2024 10:52 AM EDT [facility] Immature Gran % 0.6 % 10:52 AM EDT [facility] Immature Gran Absolute 0.07(H) 0.00 - 0.04 x10(3)/mc L 05/23/2024 10:52 AM EDT [facility] Blood VENOUS BLOOD SPECIMEN / Unknown IP Care Team Draw / Unknown 05/23/2024 9:46 AM EDT 05/23/2024 10:01 AM EDT Saba Spears MD HEMATOLOGY ORDERABL ES [facility] [place] [address] * POC, GLUCOSE (05/23/2024 7:44 AM EDT) Glucometer, POC 127 65 - 199 mg/dL 05/23/2024 7:44 AM EDT [facility] Comment:Supplemental ranges: <140 mg/dL before meals <180 mg/dL all other times of the day. Blood CAPILLARY BLOOD / Unknown 05/23/2024 7:44 AM EDT 05/23/2024 7:45 AM EDT Saba Spears MD POINT OF CARE TEST ORDERABLES Performing Organization Address City/[facility]/ZIP Co de Phone Number [facility] [place] [address] * Prepare RBC (05/23/2024 3:49 AM EDT) Status Information Transfused [facility] Product Identification RBC [facility] Unit Number [id number] [facility] Product Code [id number] [facility] Unit Blood Type OPOS [facility] Specimen Expiration Date [id number] [facility] Volulme 350 [facility] Issue Date / Time [id number] [facility] Blood 05/22/2024 12: 42 PM EDT Saba Spears MD BLOOD BANK PRODUCT ORDERABLES Performing Organization Address City/[facility]/ZIP Co de Phone Number [facility] [place] [address] * POC, GLUCOSE (05/23/2024 3:49 AM EDT) Glucometer, POC 152 65 - 199 mg/dL 05/23/2024 3:49 AM EDT [facility] Comment:Supplemental ranges: <140 mg/dL before meals <180 mg/dL all other times of the day. Blood CAPILLARY BLOOD / Unknown 05/23/2024 3:49 AM EDT 05/23/2024 3:49 AM EDT Saba Spears MD POINT OF CARE TEST ORDERABLES Performing Organization Address City/[facility]/ZIP Co de Phone Number [facility] [place] [address] * POC, GLUCOSE (05/23/2024 1:26 AM EDT) [facility] Glucometer, POC 138 65 - 199 mg/dL 05/23/2024 1:26 AM EDT [facility] Comment:Supplemental ranges: <140 mg/dL before meals <180 mg/dL all other times of the day. Blood CAPILLARY BLOOD / Unknown 05/23/2024 1:26 AM EDT 05/23/2024 1:26 AM EDT Saba Spears MD POINT OF CARE TEST ORDERABLES Performing Organization Address [facility]/ZIP Co de Phone Number [facility] [place] [address] * (ABNORMAL) Scan, Peripheral Blood (05/23/2024 1:19 AM EDT) [facility] RBC Morphology Abnormal 05/23/2024 3:44 AM EDT [facility] Platelet Estimate Increased(A) Normal 05/23/2024 3:44 AM EDT [facility] Ovalocytes 1-5 /HPF 05/23/2024 3:44 AM EDT [facility] Sofía cells 1-5 /HPF 05/23/2024 3:44 AM EDT [facility] Blood VENOUS BLOOD SPECIMEN / Unknown IP Care Team Draw / Unknown 05/23/2024 1:19 AM EDT 05/23/2024 2:05 AM EDT Mary De La Fuente MD HEMATOLOGY ORDERAB LES [facility] [place] [address] * Magnesium (05/23/2024 1:19 AM EDT) Magnesium 0.86 0.69 - 1.07 mMol/L 05/23/2024 2:40 AM EDT [facility] Blood VENOUS BLOOD SPECIMEN / Unknown IP Care Team Draw / Unknown 05/23/2024 1:19 AM EDT 05/23/2024 2:05 AM EDT Mary De La Fuente MD CHEMISTRY ORDERABL ES Performing Organization Address City/[facility]/ZIP Co de Phone Number [facility] [place] [address] * (ABNORMAL) Phosphorus (05/23/2024 1:19 AM EDT) Phosphorus 5.8(H) 2.5 - 4.5 mg/dL 05/23/2024 2:40 AM EDT [facility] Blood VENOUS BLOOD SPECIMEN / Unknown IP Care Team Draw / Unknown 05/23/2024 1:19 AM EDT 05/23/2024 2:05 AM EDT Mary De La Fuente MD CHEMISTRY ORDERABL ES Performing Organization Address City/[facility]/ZIP Co de Phone Number [facility] [place] [address] * (ABNORMAL) Basic Metabolic Panel (non-fasting) (05/23/2024 1:19 AM EDT) Glucose 158 65 - 199 mg/dL 05/23/2024 3:34 AM EDT [facility] Comment:Glucose Concentratio n >=200 mg/dL plus symptoms is consistent with Diabetes Mellitus. Blood Urea Nitrogen 85(H) 10 - 20 mg/dL 05/23/2024 3:34 AM EDT [facility] Creatinine 2.70(H) 0.80 - 1.50 mg/dL 05/23/2024 3:34 AM EDT [facility] Sodium 139 135 - 145 mMol/L 05/23/2024 3:34 AM EDT [facility] Potassium 4.9 3.5 - 5.0 mMol/L 05/23/2024 3:34 AM EDT [facility] Chloride 108(H) 98 - 107 mMol/L 05/23/2024 3:34 AM EDT [facility] Carbon Dioxide 20(L) 22 - 31 mMol/L 05/23/2024 3:34 AM EDT [facility] Anion Gap 11 5 - 15 mMol/L 05/23/2024 3:34 AM EDT [facility] Calcium 9.1 8.5 - 10.5 mg/dL 05/23/2024 3:34 AM EDT [facility] Est Glomerular Filtration Rate - Male 25 mL/min/1. 73 m?? 05/23/2024 3:34 AM [facility] Comment: This patient's estimated GFR [...] Foundation Fasting Status 05/23/2024 3:34 AM T [facility] Blood VENOUS BLOOD SPECIMEN / Unknown IP Care Team Draw / Unknown 05/23/2024 1:19 AM EDT 05/23/2024 2:05 AM EDT Mary De La Fuente MD CHEMISTRY ORDERABL ES [facility] [place] [address] * (ABNORMAL) CBC (with Diff) (05/23/2024 1:19 AM EDT) White Blood Cell 12.66(H) 4.00 - 9.50 x10(3)/mc L 05/23/2024 3:44 AM [facility] Red Blood Cell 2.61(L) 4.58 - 5.54 x10(6)/mc L 05/23/2024 3:44 AM [facility] Hemoglobin 7.8(L) 13.7 - 16.5 g/dL 05/23/2024 3:44 AM [facility] Hematocrit 24.3(L) 40.5 - 48.5 % 05/23/2024 3:44 AM [facility] Mean Cell Volume 93.1 82.9 - 93.1 fL 05/23/2024 3:44 AM [facility] Mean Cell Hemoglobin 29.9 27.5 - 32.1 pg 05/23/2024 3:44 AM [facility] Mean Cell Hemoglobin Concentration 32.1 32.0 - 35.7 g/dL 05/23/2024 3:44 AM [facility] Platelet 381(H) 145 - 357 x10(3)/mc L 05/23/2024 3:44 AM [facility] Mean Platelet Volume 11.4 7.6 - 12.9 fL 05/23/2024 3:44 AM [facility] RDW Standard Deviation 55.1(H) 36.0 - 45.0 fL 05/23/2024 3:44 AM [facility] RDW coefficient of variation 16.5(H) 11.4 - 13.8 % 05/23/2024 3:44 AM [facility] NRBC% auto 0.0 % 05/23/2024 3:44 AM [facility] NRBC Absolute 0.00 0.00 - 0.00 x10(3)/mc L 05/23/2024 3:44 AM [facility] Neutrophil % 79.4 % 05/23/2024 3:44 AM [facility] Comment:This is an appended report. These results have been appended to a previously preliminary verified report. Neutrophil Absolute 10.06(H) 1.70 - 6.10 x10(3)/mc L 05/23/2024 3:44 AM [facility] Comment:This is an appended report. These results have been appended to a previously preliminary verified report. Lymph % 5.8 % 05/23/2024 3:44 AM [facility] Comment:This is an appended report. These results have been appended to a previously preliminary verified report. Lymph Absolute 0.73(L) 0.90 - 3.20 x10(3)/mc L 05/23/2024 3:44 AM [facility] Comment:This is an appended report. These results have been appended to a previously preliminary verified report. Monocyte % 12.1 % 05/23/2024 3:44 AM [facility] Comment:This is an appended report. These results have been appended to a previously preliminary verified report. Monocyte Absolute 1.53(H) 0.30 - 0.90 x10(3)/mc L 05/23/2024 3:44 AM [facility] Comment:This is an appended report. These results have been appended to a previously preliminary verified report. Eos % 1.9 % 05/23/2024 3:44 AM [facility] Comment:This is an appended report. These results have been appended to a previously preliminary verified report. Eos Absolute 0.24 0.00 - 0.40 x10(3)/mc L 05/23/2024 3:44 AM [facility] Comment:This is an appended report. These results have been appended to a previously preliminary verified report. Basophil % 0.3 % 05/23/2024 3:44 AM [facility] Comment:This is an appended report. These results have been appended to a previously preliminary verified report. Baso Absolute 0.04 0.00 - 0.10 x10(3)/mc L 05/23/2024 3:44 AM [facility] Comment:This is an appended report. These results have been appended to a previously preliminary verified report. Immature Gran % 0.5 % 3:44 AM EDT [facility] Comment:This is an appended report. These results have been appended to a previously preliminary verified report. Immature Gran Absolute 0.06(H) 0.00 - 0.04 x10(3)/mc L 05/23/2024 3:44 AM EDT [facility] Comment:This is an appended report. These results have been appended to a previously preliminary verified report. Blood VENOUS BLOOD SPECIMEN / Unknown IP Care Team Draw / Unknown 05/23/2024 1:19 AM EDT 05/23/2024 2:05 AM EDT Mary De La Fuente MD HEMATOLOGY ORDERAB LES Performing Organization Address City/[facility]/ZIP Co de Phone Number [facility] [place] [address] * POC, GLUCOSE (05/22/2024 8:21 PM EDT) Glucometer, POC 152 65 - 199 mg/dL 05/22/2024 8:21 PM EDT [facility] Comment:Supplemental ranges: <140 mg/dL before meals <180 mg/dL all other times of the day. Blood CAPILLARY BLOOD / Unknown 05/22/2024 8:21 PM EDT 05/22/2024 8:21 PM EDT Saba Spears MD POINT OF CARE TEST ORDERABLES [facility] [place] [address] * POC, GLUCOSE (05/22/2024 6:20 PM EDT) Glucometer, POC 130 65 - 199 mg/dL 05/22/2024 6:20 PM EDT [facility] Comment:Supplemental ranges: <140 mg/dL before meals <180 mg/dL all other times of the day. Blood CAPILLARY BLOOD / Unknown 05/22/2024 6:20 PM EDT 05/22/2024 6:21 PM EDT Saba Spears MD POINT OF CARE TEST ORDERABLES [facility] [place] [address] * Transfuse RBC (05/22/2024 2:45 PM EDT) Saba Spears MD NURSING TREATMENT O RDERABLES - BLOOD ADMIN * UPPER GI ENDOSCOPY (05/22/2024 12:48 PM EDT) UPPER GI ENDOSCOPY [facility] Endoscopy ___ Procedure Date: 05/22/2024 12:48 PM ? Patient Name: Jossy Shanks ? N: [id number] ? Date of : 1955 ? Age: 69 ? Order #: [id number] ? Instrument Name: [id number]- [id number] ? ___ Procedure: ? Upper GI endoscopy [...] (PATIENT HISTORY FOUND) (05/22/2024 11:18 AM EDT) [facility] Recheck Progress Complete 05/22/2024 1:01 PM EDT [facility] Blood VENOUS BLOOD SPECIMEN / Unknown IP Care Team Draw / Unknown 05/22/2024 11:18 AM EDT 05/22/2024 11:27 AM EDT Saba Spears MD BLOOD BANK LAB FADY GAO [facility] [place] [address] * Type and screen ([facility]/CGP/TARA) (05/22/2024 11:18 AM EDT) Pathologist [facility] ABOR Type O POSITIVE 05/22/2024 12:31 PM EDT [facility] PATIENT HISTORY Found 05/22/2024 12:31 PM EDT [facility] Expires at [id number] on: 05-22-2024 05/22/2024 12:31 PM EDT [facility] ANTIBODY SCREEN AUTOMATED Negative 05/22/2024 12:31 PM EDT [facility] T&S only valid at [facility] 05/22/2024 12:31 PM EDT [facility] Blood VENOUS BLOOD SPECIMEN / Unknown IP Care Team Draw / Unknown 05/22/2024 11:18 AM EDT 05/22/2024 11:27 AM EDT Narrative [facility] - 05/22/2024 12:31 PM EDT This Type and Screen result is only valid at the [facility] Saba Spears MD BLOOD BANK LAB ORDE RABLES Performing Organization Address City/[facility]/ZIP Co de Phone Number [facility] [place] [address] * (ABNORMAL) Hemoglobin and Hematocrit, blood (05/22/2024 11:18 AM EDT) Hemoglobin 6.9(L) 13.7 - 16.5 g/dL 05/22/2024 12:02 PM EDT [facility] Hematocrit 21.4(L) 40.5 - 48.5 % 05/22/2024 12:02 PM EDT [facility] Blood VENOUS BLOOD SPECIMEN / Unknown IP Care Team Draw / Unknown 05/22/2024 11:18 AM EDT 05/22/2024 11:36 AM EDT Saba Spears MD HEMATOLOGY ORDERABL ES [facility] [place] [address] * POC, GLUCOSE (05/22/2024 11:14 AM EDT) Glucometer, POC 126 65 - 199 mg/dL 05/22/2024 11:17 AM EDT [facility] Comment:Supplemental ranges: <140 mg/dL before meals <180 mg/dL all other times of the day. Blood CAPILLARY BLOOD / Unknown 05/22/2024 11:14 AM EDT 05/22/2024 11:18 AM EDT Saba Spears MD POINT OF CARE TEST ORDERABLES [facility] [place] [address] * POC, GLUCOSE (05/22/2024 8:07 AM EDT) Glucometer, POC 132 65 - 199 mg/dL 05/22/2024 8:08 AM EDT [facility] Comment:Supplemental ranges: <140 mg/dL before meals <180 mg/dL all other times of the day. Blood CAPILLARY BLOOD / Unknown 05/22/2024 8:07 AM EDT 05/22/2024 8:08 AM EDT Saba Spears MD POINT OF CARE TEST ORDERABLES Performing Organization Address City/[facility] Co de Phone Number [facility] [place] [address] * (ABNORMAL) Hepatic Function Panel (05/22/2024 5:18 AM EDT) Albumin 2.6(L) 3.2 - 5.2 g/dL 05/22/2024 9:50 AM EDT [facility] Aspartate Aminotransferase 18 <=39 unit/L 05/22/2024 9:50 AM EDT [facility] Alanine Aminotransferase 42 0 - 55 unit/L 05/22/2024 9:50 AM EDT [facility] Alkaline Phosphatase 84 40 - 130 unit/L 05/22/2024 9:50 AM EDT [facility] Bilirubin, Total <0.2 <=1.3 mg/dL 05/22/2024 9:50 AM EDT [facility] Bilirubin, Direct <0.2 0.0 - 0.3 mg/dL 05/22/2024 9:50 AM EDT [facility] Protein, Total 6.0(L) 6.1 - 8.0 g/dL 05/22/2024 9:50 AM EDT [facility] Blood VENOUS BLOOD SPECIMEN / Unknown IP Care Team Draw / Unknown 05/22/2024 5:18 AM EDT 05/22/2024 5:45 AM EDT Saba Spears MD CHEMISTRY ORDERABLE S Performing Organization Address City/[facility]/ZIP Co de Phone Number [facility] [place] [address] * Magnesium (05/22/2024 5:18 AM EDT) Magnesium 0.93 0.69 - 1.07 mMol/L 05/22/2024 6:16 AM EDT [facility] Blood VENOUS BLOOD SPECIMEN / Unknown IP Care Team Draw / Unknown 05/22/2024 5:18 AM EDT 05/22/2024 5:45 AM EDT Mary De La Fuente MD CHEMISTRY ORDERABL ES Performing Organization Address [facility] Co de Phone Number [facility] [place] [address] * (ABNORMAL) Phosphorus (05/22/2024 5:18 AM EDT) Phosphorus 5.8(H) 2.5 - 4.5 mg/dL 05/22/2024 6:16 AM EDT [facility] Blood VENOUS BLOOD SPECIMEN / Unknown IP Care Team Draw / Unknown 05/22/2024 5:18 AM EDT 05/22/2024 5:45 AM EDT Mary De La Fuente MD CHEMISTRY ORDERABL ES Performing Organization Address City/[facility]/ZIP Co de Phone Number [facility] [place] [address] * (ABNORMAL) Basic Metabolic Panel (05/22/2024 5:18 AM EDT) Glucose 121 65 - 199 mg/dL 05/22/2024 6:16 AM [facility] Comment:Glucose Concentratio n >=200 mg/dL plus symptoms is consistent with Diabetes Mellitus. Blood Urea Nitrogen 97(H) 10 - 20 mg/dL 05/22/2024 6:16 AM [facility] Creatinine 2.77(H) 0.80 - 1.50 mg/dL 05/22/2024 6:16 AM [facility] Sodium 138 135 - 145 mMol/L 05/22/2024 6:16 AM [facility] Potassium 5.1(H) 3.5 - 5.0 mMol/L 05/22/2024 6:16 AM [facility] [facility] Chloride 110(H) 98 - 107 mMol/L 05/22/2024 6:16 AM [facility] Carbon Dioxide 20(L) 22 - 31 mMol/L 05/22/2024 6:16 AM [facility] Anion Gap 8 5 - 15 mMol/L 05/22/2024 6:16 AM [facility] Calcium 9.4 8.5 - 10.5 mg/dL 05/22/2024 6:16 AM [facility] Est Glomerular Filtration Rate - Male 24 mL/min/1. 73 m?? 05/22/2024 6:16 AM [facility] Comment: This patient's estimated GFR [...] Fasting Status No 05/22/2024 6:16 AM EDT [facility] Blood VENOUS BLOOD SPECIMEN / Unknown IP Care Team Draw / Unknown 05/22/2024 5:18 AM EDT 05/22/2024 5:45 AM EDT Mary De La Fuente MD CHEMISTRY ORDERABL ES [facility] [place] [address] * (ABNORMAL) CBC (with Diff) (05/22/2024 5:18 AM EDT) White Blood Cell 14.70(H) 4.00 - 9.50 x10(3)/mc L 05/22/2024 5:52 AM EDT [facility] Red Blood Cell 2.37(L) 4.58 - 5.54 x10(6)/mc L 05/22/2024 5:52 AM EDT [facility] Hemoglobin 7.2(L) 13.7 - 16.5 g/dL 05/22/2024 5:52 AM T [facility] Hematocrit 22.1(L) 40.5 - 48.5 % 05/22/2024 5:52 AM T [facility] Mean Cell Volume 93.2(H) 82.9 - 93.1 fL 05/22/2024 5:52 AM T [facility] Mean Cell Hemoglobin 30.4 27.5 - 32.1 pg 05/22/2024 5:52 AM EDT [facility] Mean Cell Hemoglobin Concentration 32.6 32.0 - 35.7 g/dL [facility] Platelet 366(H) 145 - 357 x10(3)/mc L 05/22/2024 5:52 AM EDT [facility] Mean Platelet Volume 10.9 7.6 - 12.9 fL 05/22/2024 5:52 AM [facility] RDW Standard Deviation 54.6(H) 36.0 - 45.0 fL 05/22/2024 5:52 AM [facility] RDW coefficient of variation 16.3(H) 11.4 - 13.8 % 05/22/2024 5:52 AM [facility] NRBC% auto 0.0 % 05/22/2024 5:52 AM [facility] NRBC Absolute 0.00 0.00 - 0.00 x10(3)/mc L 05/22/2024 5:52 AM [facility] Neutrophil % 83.2 % 05/22/2024 5:52 AM [facility] Neutrophil Absolute 12.22(H) 1.70 - 6.10 x10(3)/mc L 05/22/2024 5:52 AM [facility] Lymph % 4.4 % 05/22/2024 5:52 AM [facility] Lymph Absolute 0.65(L) 0.90 - 3.20 x10(3)/mc L 05/22/2024 5:52 AM [facility] Monocyte % 9.7 % 05/22/2024 5:52 AM [facility] Monocyte Absolute 1.43(H) 0.30 - 0.90 x10(3)/mc L 05/22/2024 5:52 AM [facility] Eos % 1.9 % 05/22/2024 5:52 AM [facility] Eos Absolute 0.28 0.00 - 0.40 x10(3)/mc L 05/22/2024 5:52 AM [facility] Basophil % 0.2 % 05/22/2024 5:52 AM [facility] Baso Absolute 0.03 0.00 - 0.10 x10(3)/mc L 05/22/2024 5:52 AM [facility] Immature Gran % 0.6 % 5:52 AM [facility] Immature Gran Absolute 0.09(H) 0.00 - 0.04 x10(3)/mc L 05/22/2024 5:52 AM EDT [facility] Blood VENOUS BLOOD SPECIMEN / Unknown IP Care Team Draw / Unknown 05/22/2024 5:18 AM EDT 05/22/2024 5:45 AM EDT Mary De La Fuente MD HEMATOLOGY ORDERAB LES Performing Organization Address [facility] Co de Phone Number [facility] [address] * POC, GLUCOSE (05/22/2024 3:50 AM EDT) Glucometer, POC 140 65 - 199 mg/dL 05/22/2024 3:50 AM EDT [facility] Comment:Supplemental ranges: <140 mg/dL before meals <180 mg/dL all other times of the day. Blood CAPILLARY BLOOD / Unknown 05/22/2024 3:50 AM EDT 05/22/2024 3:50 AM EDT Saba Spears MD POINT OF CARE TEST ORDERABLES Performing Organization Address [facility] de Phone Number [facility] [address] * Scan Doc: Lab (05/22/2024 12:00 AM EDT) Narrative 05/22/2024 12:00 AM EDT Ordered by an unspecified provider. Scanning Provider MEDIA MGR SCAN EXT O RDR/RSLT * POC, GLUCOSE (05/21/2024 11:28 PM EDT) Glucometer, POC 174 65 - 199 mg/dL 05/21/2024 11:28 PM EDT [facility] Comment:Supplemental ranges: <140 mg/dL before meals <180 mg/dL all other times of the day. Blood CAPILLARY BLOOD / Unknown 05/21/2024 11:28 PM EDT 05/21/2024 11:28 PM EDT Saba Spears MD POINT OF CARE TEST ORDERABLES Performing Organization Address [facility] Co de Phone Number [facility] [place] [address] * POC, GLUCOSE (05/21/2024 7:49 PM EDT) Glucometer, POC 161 65 - 199 mg/dL 05/21/2024 7:49 PM EDT [facility] Comment:Supplemental ranges: <140 mg/dL before meals <180 mg/dL all other times of the day. Blood CAPILLARY BLOOD / Unknown 05/21/2024 7:49 PM EDT 05/21/2024 7:49 PM EDT Saba Spears MD POINT OF CARE TEST ORDERABLES Performing Organization Address [facility] Co de Phone Number [facility] [place] [address] * POC, GLUCOSE (05/21/2024 5:18 PM EDT) Glucometer, POC 152 65 - 199 mg/dL 05/21/2024 5:18 PM EDT [facility] Comment:Supplemental ranges: <140 mg/dL before meals <180 mg/dL all other times of the day. Blood CAPILLARY BLOOD / Unknown 05/21/2024 5:18 PM EDT 05/21/2024 5:18 PM EDT Saba Spears MD POINT OF CARE TEST ORDERABLES Performing Organization Address City/[facility] Co de Phone Number [facility] [address] * (ABNORMAL) Hemogram (05/21/2024 3:00 PM EDT) White Blood Cell 14.25(H) 4.00 - 9.50 x10(3)/mc L 05/21/2024 3:41 PM [facility] Red Blood Cell 2.61(L) 4.58 - 5.54 x10(6)/mc L 05/21/2024 3:41 PM [facility] Hemoglobin 7.8(L) 13.7 - 16.5 g/dL 05/21/2024 3:41 PM [facility] Hematocrit 24.5(L) 40.5 - 48.5 % 05/21/2024 3:41 PM [facility] Mean Cell Volume 93.9(H) 82.9 - 93.1 fL 05/21/2024 3:41 PM [facility] Mean Cell Hemoglobin 29.9 27.5 - 32.1 pg 05/21/2024 3:41 PM [facility] Mean Cell Hemoglobin Concentration 31.8(L) 32.0 - 35.7 g/dL 05/21/2024 3:41 PM [facility] Platelet 456(H) 145 - 357 x10(3)/mc L 05/21/2024 3:41 PM [facility] Mean Platelet Volume 11.1 7.6 - 12.9 fL 05/21/2024 3:41 PM [facility] RDW Standard Deviation 55.2(H) 36.0 - 45.0 fL 05/21/2024 3:41 PM [facility] RDW coefficient of variation 16.1(H) 11.4 - 13.8 % 05/21/2024 3:41 PM [facility] NRBC% auto 0.0 % 05/21/2024 3:41 PM [facility] NRBC Absolute 0.00 0.00 - 0.00 x10(3)/mc L 05/21/2024 3:41 PM [facility] Blood VENOUS BLOOD SPECIMEN / Unknown IP Care Team Draw / Unknown 05/21/2024 3:00 PM EDT 05/21/2024 3:36 PM EDT Saba Spears MD HEMATOLOGY ORDERABL ES Performing Organization Address City/[facility]/ZIP Co de Phone Number [facility] [place] [address] * POC, GLUCOSE (05/21/2024 12:39 PM EDT) Glucometer, POC 144 65 - 199 mg/dL 05/21/2024 12:39 PM EDT [facility] Comment:Supplemental ranges: <140 mg/dL before meals <180 mg/dL all other times of the day. Blood CAPILLARY BLOOD / Unknown 05/21/2024 12:39 PM EDT 05/21/2024 12:39 PM EDT Saba Spears MD POINT OF CARE TEST ORDERABLES Performing Organization Address [facility] Co de Phone Number [facility] [address] * IR Tunneled Central Venous Access Non-Dialysis [...] and osteomyelitis s/p 2ng toe amputation requiring care home IV antibiotic administration who presents to Interventional [...] guidance and a 4Fr sheath placed. ??[address] injection compatible single lumen catheter was [...] the IR Nurse. ? Saba Spears MD [facility] ORDERABLES * POC, GLUCOSE (05/21/2024 9:12 AM EDT) [facility] Signature Glucometer, POC 144 65 - 199 mg/dL 05/21/2024 9:12 AM EDT [facility] Comment:Supplemental ranges: <140 mg/dL before meals <180 mg/dL all other times of the day. Blood CAPILLARY BLOOD / Unknown 05/21/2024 9:12 AM EDT 05/21/2024 9:12 AM EDT Saba Spears MD POINT OF CARE TEST ORDERABLES [facility] [place] [address] * POC, GLUCOSE (05/21/2024 8:32 AM EDT) Glucometer, POC 135 65 - 199 mg/dL 05/21/2024 8:32 AM EDT [facility] Comment:Supplemental ranges: <140 mg/dL before meals <180 mg/dL all other times of the day. Blood CAPILLARY BLOOD / Unknown 05/21/2024 8:32 AM EDT 05/21/2024 8:32 AM EDT Saba Spears MD POINT OF CARE TEST ORDERABLES [facility] [place] [address] * (ABNORMAL) Hemogram (05/21/2024 8:27 AM EDT) White Blood Cell 15.77(H) 4.00 - 9.50 x10(3)/mc L 05/21/2024 8:54 AM EDT [facility] Red Blood Cell 2.47(L) 4.58 - 5.54 x10(6)/mc L 05/21/2024 8:54 AM EDT [facility] Hemoglobin 7.5(L) 13.7 - 16.5 g/dL 05/21/2024 8:54 AM EDT [facility] Hematocrit 23.0(L) 40.5 - 48.5 % 05/21/2024 8:54 AM EDT [facility] Mean Cell Volume 93.1 82.9 - 93.1 fL 05/21/2024 8:54 AM EDT [facility] Mean Cell Hemoglobin 30.4 27.5 - 32.1 pg 05/21/2024 8:54 AM EDT [facility] Mean Cell Hemoglobin Concentration 32.6 32.0 - 35.7 g/dL 05/21/2024 8:54 AM EDT [facility] Platelet 398(H) 145 - 357 x10(3)/mc L 05/21/2024 8:54 AM EDT [facility] Mean Platelet Volume 10.8 7.6 - 12.9 fL 05/21/2024 8:54 AM EDT [facility] RDW Standard Deviation 54.6(H) 36.0 - 45.0 fL 05/21/2024 8:54 AM EDT [facility] RDW coefficient of variation 16.1(H) 11.4 - 13.8 % 05/21/2024 8:54 AM EDT [facility] NRBC% auto 0.0 % 05/21/2024 8:54 AM EDT [facility] NRBC Absolute 0.00 0.00 - 0.00 x10(3)/mc L 05/21/2024 8:54 AM EDT [facility] Blood VENOUS BLOOD SPECIMEN / Unknown IP Care Team Draw / Unknown 05/21/2024 8:27 AM EDT 05/21/2024 8:42 AM EDT Saba Spears MD HEMATOLOGY ORDERABL ES Performing Organization Address City/[facility]/ZIP Co de Phone Number [facility] [place] [address] * (ABNORMAL) CRP, acute inflammation (05/21/2024 4:58 AM EDT) C-Reactive Protein 14.1(H) <=4.9 mg/L 05/21/2024 10:05 AM EDT [facility] Blood VENOUS BLOOD SPECIMEN / Unknown IP Care Team Draw / Unknown 05/21/2024 4:58 AM EDT 05/21/2024 5:17 AM EDT Saba Spears MD CHEMISTRY ORDERABLE S [facility] [place] [address] * Magnesium (05/21/2024 4:58 AM EDT) Magnesium 0.99 0.69 - 1.07 mMol/L 05/21/2024 5:51 AM EDT [facility] Blood VENOUS BLOOD SPECIMEN / Unknown IP Care Team Draw / Unknown 05/21/2024 4:58 AM EDT 05/21/2024 5:17 AM EDT Mary De La Fuente MD CHEMISTRY ORDERABL ES Performing Organization Address City/[facility]/ZIP Co de Phone Number [facility] [place] [address] * (ABNORMAL) Phosphorus (05/21/2024 4:58 AM EDT) Phosphorus 6.2(H) 2.5 - 4.5 mg/dL 05/21/2024 5:51 AM EDT [facility] Blood VENOUS BLOOD SPECIMEN / Unknown IP Care Team Draw / Unknown 05/21/2024 4:58 AM EDT 05/21/2024 5:17 AM EDT Mary De La Fuente MD CHEMISTRY ORDERABL ES Performing Organization Address City/[facility]/ZIP Co de Phone Number [facility] [place] [address] * (ABNORMAL) Basic Metabolic Panel (05/21/2024 4:58 AM EDT) Glucose 151 65 - 199 mg/dL 05/21/2024 5:51 AM EDT [facility] Comment:Glucose Concentratio n >=200 mg/dL plus symptoms is consistent with Diabetes Mellitus. Blood Urea Nitrogen 110(H) 10 - 20 mg/dL 05/21/2024 5:51 AM EDT [facility] Creatinine 3.04(H) 0.80 - 1.50 mg/dL 05/21/2024 5:51 AM EDT [facility] Sodium 138 135 - 145 mMol/L 05/21/2024 5:51 AM EDT [facility] Potassium 5.1(H) 3.5 - 5.0 mMol/L 05/21/2024 5:51 AM EDT [facility] Chloride 111(H) 98 - 107 mMol/L [facility] Carbon Dioxide 18(L) 22 - 31 mMol/L 05/21/2024 5:51 AM EDT [facility] Anion Gap 9 5 - 15 mMol/L 05/21/2024 5:51 AM EDT [facility] Calcium 9.4 8.5 - 10.5 mg/dL 05/21/2024 5:51 AM EDT [facility] Est Glomerular Filtration Rate - Male 21 mL/min/1. 73 m?? 05/21/2024 5:51 AM [facility] Comment: This patient's estimated GFR [...] Fasting Status No 05/21/2024 5:51 AM T [facility] Blood VENOUS BLOOD SPECIMEN / Unknown IP Care Team Draw / Unknown 05/21/2024 4:58 AM EDT 05/21/2024 5:17 AM EDT Mary De La Fuente MD CHEMISTRY ORDERABL ES [facility] [place] [address] * (ABNORMAL) CBC (with Diff) (05/21/2024 4:58 AM EDT) White Blood Cell 14.49(H) 4.00 - 9.50 x10(3)/mc L 05/21/2024 5:28 AM EDT [facility] Red Blood Cell 2.54(L) 4.58 - 5.54 x10(6)/mc L 05/21/2024 5:28 AM [facility] Hemoglobin 7.5(L) 13.7 - 16.5 g/dL 05/21/2024 5:28 AM [facility] Hematocrit 23.6(L) 40.5 - 48.5 % 05/21/2024 5:28 AM [facility] Mean Cell Volume 92.9 82.9 - 93.1 fL 05/21/2024 5:28 AM [facility] Mean Cell Hemoglobin 29.5 27.5 - 32.1 pg 05/21/2024 5:28 AM [facility] Mean Cell Hemoglobin Concentration 31.8(L) 32.0 - 35.7 g/dL 05/21/2024 5:28 AM [facility] Platelet 388(H) 145 - 357 x10(3)/mc L 05/21/2024 5:28 AM [facility] Mean Platelet Volume 10.8 7.6 - 12.9 fL 05/21/2024 5:28 AM [facility] RDW Standard Deviation 53.6(H) 36.0 - 45.0 fL 05/21/2024 5:28 AM [facility] RDW coefficient of variation 16.0(H) 11.4 - 13.8 % 05/21/2024 5:28 AM [facility] NRBC% auto 0.0 % 05/21/2024 5:28 AM [facility] NRBC Absolute 0.00 0.00 - 0.00 x10(3)/mc L 05/21/2024 5:28 AM [facility] Neutrophil % 81.6 % 05/21/2024 5:28 AM [facility] Neutrophil Absolute 11.83(H) 1.70 - 6.10 x10(3)/mc L 05/21/2024 5:28 AM EDT [facility] Lymph % 6.1 % 05/21/2024 5:28 AM EDT [facility] Lymph Absolute 0.89(L) 0.90 - 3.20 x10(3)/mc L 05/21/2024 5:28 AM EDT [facility] Monocyte % 9.4 % 05/21/2024 5:28 AM EDT [facility] Monocyte Absolute 1.36(H) 0.30 - 0.90 x10(3)/mc L 05/21/2024 5:28 AM EDT [facility] Eos % 2.1 % 05/21/2024 5:28 AM EDT [facility] Eos Absolute 0.30 0.00 - 0.40 x10(3)/mc L 05/21/2024 5:28 AM EDT [facility] Basophil % 0.2 % 05/21/2024 5:28 AM EDT [facility] Baso Absolute 0.03 0.00 - 0.10 x10(3)/mc L 05/21/2024 5:28 AM EDT [facility] Immature Gran % 0.6 % 5:28 AM EDT [facility] Immature Gran Absolute 0.08(H) 0.00 - 0.04 x10(3)/mc L 05/21/2024 5:28 AM EDT [facility] Blood VENOUS BLOOD SPECIMEN / Unknown IP Care Team Draw / Unknown 05/21/2024 4:58 AM EDT 05/21/2024 5:17 AM EDT Mary De La Fuente MD HEMATOLOGY ORDERAB LES [facility] [place] [address] * POC, GLUCOSE (05/21/2024 3:45 AM EDT) [facility] Signature Glucometer, POC 155 65 - 199 mg/dL 05/21/2024 3:45 AM EDT [facility] Comment:Supplemental ranges: <140 mg/dL before meals <180 mg/dL all other times of the day. Blood CAPILLARY BLOOD / Unknown 05/21/2024 3:45 AM EDT 05/21/2024 3:46 AM EDT Saba Spears MD POINT OF CARE TEST ORDERABLES Performing Organization Address City/[facility]/ZIP Co de Phone Number [facility] [place] [address] * POC, GLUCOSE (05/20/2024 11:44 PM EDT) Glucometer, POC 132 65 - 199 mg/dL 05/20/2024 11:44 PM EDT [facility] Comment:Supplemental ranges: <140 mg/dL before meals <180 mg/dL all other times of the day. Blood CAPILLARY BLOOD / Unknown 05/20/2024 11:44 PM EDT 05/20/2024 11:44 PM EDT Saba Spears MD POINT OF CARE TEST ORDERABLES Performing Organization Address [facility] Co de Phone Number [facility] [place] [address] * POC, GLUCOSE (05/20/2024 7:24 PM EDT) Glucometer, POC 166 65 - 199 mg/dL 05/20/2024 7:24 PM EDT [facility] Comment:Supplemental ranges: <140 mg/dL before meals <180 mg/dL all other times of the day. Blood CAPILLARY BLOOD / Unknown 05/20/2024 7:24 PM EDT 05/20/2024 7:25 PM EDT Saba Spears MD POINT OF CARE TEST ORDERABLES Performing Organization Address City/[facility]/ZIP Co de Phone Number [facility] [place] [address] * POC, GLUCOSE (05/20/2024 4:24 PM EDT) Glucometer, POC 170 65 - 199 mg/dL 05/20/2024 4:24 PM EDT [facility] Comment:Supplemental ranges: <140 mg/dL before meals <180 mg/dL all other times of the day. Blood CAPILLARY BLOOD / Unknown 05/20/2024 4:24 PM EDT 05/20/2024 4:24 PM EDT Saba Spears MD POINT OF CARE TEST ORDERABLES [facility] [place] [address] * (ABNORMAL) Hemogram (05/20/2024 12:35 PM EDT) White Blood Cell 14.66(H) 4.00 - 9.50 x10(3)/mc L 05/20/2024 12:50 PM EDT [facility] Red Blood Cell 2.81(L) 4.58 - 5.54 x10(6)/mc L 05/20/2024 12:50 PM EDT [facility] Hemoglobin 8.4(L) 13.7 - 16.5 g/dL 05/20/2024 12:50 PM EDT [facility] Hematocrit 26.2(L) 40.5 - 48.5 % 05/20/2024 12:50 PM EDT [facility] Mean Cell Volume 93.2(H) 82.9 - 93.1 fL 05/20/2024 12:50 PM EDT [facility] Mean Cell Hemoglobin 29.9 27.5 - 32.1 pg 05/20/2024 12:50 PM EDT [facility] Mean Cell Hemoglobin Concentration 32.1 32.0 - 35.7 g/dL 05/20/2024 12:50 PM EDT [facility] Platelet 416(H) 145 - 357 x10(3)/mc L 05/20/2024 12:50 PM EDT [facility] Mean Platelet Volume 10.4 7.6 - 12.9 fL 05/20/2024 12:50 PM EDT [facility] RDW Standard Deviation 52.9(H) 36.0 - 45.0 fL 05/20/2024 12:50 PM EDT [facility] RDW coefficient of variation 15.6(H) 11.4 - 13.8 % 05/20/2024 12:50 PM EDT [facility] NRBC% auto 0.0 % 05/20/2024 12:50 PM EDT [facility] NRBC Absolute 0.00 0.00 - 0.00 x10(3)/mc L 05/20/2024 12:50 PM EDT [facility] Blood VENOUS BLOOD SPECIMEN / Unknown IP Care Team Draw / Unknown 05/20/2024 12:35 PM EDT 05/20/2024 12:43 PM EDT Saba Spears MD HEMATOLOGY ORDERABL ES Performing Organization Address City/[facility]/ZIP Co de Phone Number [facility] [place] [address] * POC, GLUCOSE (05/20/2024 11:52 AM EDT) [facility] Glucometer, POC 176 65 - 199 mg/dL 05/20/2024 11:52 AM EDT [facility] Comment:Supplemental ranges: <140 mg/dL before meals <180 mg/dL all other times of the day. Blood CAPILLARY BLOOD / Unknown 05/20/2024 11:52 AM EDT 05/20/2024 11:52 AM EDT Saba Spears MD POINT OF CARE TEST ORDERABLES [facility] [address] * US Retroperitoneal Complete (05/20/2024 10:36 AM EDT) WORKSTATION ID [id number] RAD Anatomical Region Laterality Modality Abdomen Ultrasound [...] AM Electronically signed by: Teofilo Ruiz MD, [facility] ([phone]), at 05/20/2024 11:30 AM Thank you for letting us participate in the care of this patient. If you are a health care provider and have any questions regarding this report, please contact the number above. For patients who have questions, please contact the health healthcare advisory services manager that requested your imaging first. ?Teofilo Ruiz, Staff Physician Electronically Signed Final Report ?? 05/20/2024 11:36 am Narrative 05/20/2024 11:37 AM EDT Renal ? (Signed Final 05/20/2024 11:36 am) PATIENT INFO: ID #: ? [id number] ?: [birth year] (69 yrs)(M) Name: ? JOSSY Spivey KNIGHTS ? Visit Date: 05/20/2024 10:34 am PERFORMED BY: Attending: ?Joseph SOTOMAYOR, Teofilo Flores Resident: ? Kuldeep SOTOMAYOR, Trinidad Wright Performed By: ? Lulu Shin RDMS Referred By: ?SABA Goodson TORY Location: ? [facility] SERVICE(S) PROVIDED: URETRO - Retroperitoneal Complete - [id number] ? [id number] INDICATIONS: CKD, increase BUN TECHNIQUE/SCAN QUALITY: Scan [...] 05/20/2024 11:36 am) PATIENT INFO: ID #: [id number] : [birth year] (69 yrs)(M) Name: JOSSY SHANKS Visit Date: 05/20/2024 10:34 am PERFORMED BY: Attending: Teofilo Ruiz MD Resident: Trinidad Light MD Performed By: Lulu Shin RDMS Referred By: SABA SPEARS Location: [facility] SERVICE(S) PROVIDED: URETRO - Retroperitoneal Complete - [id number] INDICATIONS: CKD, increase BUN TECHNIQUE/SCAN QUALITY: Scan [...] AM Electronically signed by: Teofilo Ruiz MD, [facility] ([phone]), at 05/20/2024 11:30 AM Thank you for letting us participate in the care of this patient. If you are a health care provider and have any questions regarding this report, please contact the number above. For patients who have questions, please contact the health healthcare advisory services manager that requested your imaging first. Teofilo Ruiz, Staff Physician Electronically Signed Final Report 05/20/2024 11:36 am Saba Spears MD IMG US GEN ORDERABL ES * POC, GLUCOSE (05/20/2024 8:03 AM EDT) [facility] Glucometer, POC 180 65 - 199 mg/dL 05/20/2024 8:03 AM EDT [facility] Comment:Supplemental ranges: <140 mg/dL before meals <180 mg/dL all other times of the day. Blood CAPILLARY BLOOD / Unknown 05/20/2024 8:03 AM EDT 05/20/2024 8:03 AM EDT Saba Spears MD POINT OF CARE TEST ORDERABLES Performing Organization Address City/[facility]/ZIP Co de Phone Number [facility] [address] * Magnesium (05/20/2024 4:27 AM EDT) Magnesium 0.99 0.69 - 1.07 mMol/L 05/20/2024 5:27 AM EDT [facility] Blood VENOUS BLOOD SPECIMEN / Unknown IP Care Team Draw / Unknown 05/20/2024 4:27 AM EDT 05/20/2024 4:52 AM EDT Mary De La Fuente MD CHEMISTRY ORDERABL ES Performing Organization Address [facility] Co de Phone Number [facility] [address] * (ABNORMAL) Phosphorus (05/20/2024 4:27 AM EDT) Phosphorus 5.1(H) 2.5 - 4.5 mg/dL 05/20/2024 5:27 AM EDT [facility] Blood VENOUS BLOOD SPECIMEN / Unknown IP Care Team Draw / Unknown 05/20/2024 4:27 AM EDT 05/20/2024 4:52 AM EDT Mary De La Fuente MD CHEMISTRY ORDERABL ES Performing Organization Address [facility] Co de Phone Number [facility] [address] * (ABNORMAL) Basic Metabolic Panel (non-fasting) (05/20/2024 4:27 AM EDT) Glucose 173 65 - 199 mg/dL 05/20/2024 6:27 AM [facility] Comment:Glucose Concentratio n >=200 mg/dL plus symptoms is consistent with Diabetes Mellitus. Blood Urea Nitrogen 121(H) 10 - 20 mg/dL 05/20/2024 6:27 AM [facility] Creatinine 2.78(H) 0.80 - 1.50 mg/dL 05/20/2024 6:27 AM [facility] Sodium 138 135 - 145 mMol/L 05/20/2024 6:27 AM [facility] Potassium 5.4(H) 3.5 - 5.0 mMol/L 05/20/2024 6:27 AM [facility] Chloride 109(H) 98 - 107 mMol/L 05/20/2024 6:27 AM [facility] Carbon Dioxide 18(L) 22 - 31 mMol/L 05/20/2024 6:27 AM [facility] Anion Gap 11 5 - 15 mMol/L 05/20/2024 6:27 AM [facility] Calcium 9.4 8.5 - 10.5 mg/dL 05/20/2024 6:27 AM [facility] Est Glomerular Filtration Rate - Male 24 mL/min/1. 73 m?? 05/20/2024 6:27 AM [facility] Comment: This patient's estimated GFR [...] Foundation Fasting Status No 05/20/2024 6:27 AM [facility] Blood VENOUS BLOOD SPECIMEN / Unknown IP Care Team Draw / Unknown 05/20/2024 4:27 AM EDT 05/20/2024 4:52 AM EDT Mary De La Fuente MD CHEMISTRY ORDERABL ES [facility] [place] [address] * (ABNORMAL) CBC (with Diff) (05/20/2024 4:27 AM EDT) White Blood Cell 15.20(H) 4.00 - 9.50 x10(3)/mc L 05/20/2024 5:32 AM EDT [facility] Red Blood Cell 2.69(L) 4.58 - 5.54 x10(6)/mc L 05/20/2024 5:32 AM EDT [facility] Hemoglobin 7.9(L) 13.7 - 16.5 g/dL 05/20/2024 5:32 AM EDT [facility] Hematocrit 25.5(L) 40.5 - 48.5 % 05/20/2024 5:32 AM EDT [facility] Mean Cell Volume 94.8(H) 82.9 - 93.1 fL 05/20/2024 5:32 AM [facility] Mean Cell Hemoglobin 29.4 27.5 - 32.1 pg 05/20/2024 5:32 AM EDT [facility] Mean Cell Hemoglobin Concentration 31.0(L) 32.0 - 35.7 g/dL 05/20/2024 5:32 AM EDT [facility] Platelet 403(H) 145 - 357 x10(3)/mc L 05/20/2024 5:32 AM EDT [facility] Mean Platelet Volume 10.7 7.6 - 12.9 fL 05/20/2024 5:32 AM EDT [facility] RDW Standard Deviation 54.7(H) 36.0 - 45.0 fL 05/20/2024 5:32 AM EDT [facility] RDW coefficient of variation 15.8(H) 11.4 - 13.8 % 05/20/2024 5:32 AM [facility] NRBC% auto 0.0 % 05/20/2024 5:32 AM [facility] NRBC Absolute 0.00 0.00 - 0.00 x10(3)/mc L 05/20/2024 5:32 AM [facility] Neutrophil % 82.1 % 05/20/2024 5:32 AM [facility] Neutrophil Absolute 12.49(H) 1.70 - 6.10 x10(3)/mc L 05/20/2024 5:32 AM [facility] Lymph % 6.3 % 05/20/2024 5:32 AM [facility] Lymph Absolute 0.96 0.90 - 3.20 x10(3)/mc L 05/20/2024 5:32 AM [facility] Monocyte % 8.7 % 05/20/2024 5:32 AM [facility] Monocyte Absolute 1.32(H) 0.30 - 0.90 x10(3)/mc L 05/20/2024 5:32 AM [facility] Eos % 2.0 % 05/20/2024 5:32 AM [facility] Eos Absolute 0.30 0.00 - 0.40 x10(3)/mc L 05/20/2024 5:32 AM [facility] Basophil % 0.3 % 05/20/2024 5:32 AM [facility] Baso Absolute 0.04 0.00 - 0.10 x10(3)/mc L 05/20/2024 5:32 AM [facility] Immature Gran % 0.6 % 5:32 AM [facility] Immature Gran Absolute 0.09(H) 0.00 - 0.04 x10(3)/mc L 05/20/2024 5:32 AM EDT [facility] Blood VENOUS BLOOD SPECIMEN / Unknown IP Care Team Draw / Unknown 05/20/2024 4:27 AM EDT 05/20/2024 4:52 AM EDT Mary De La Fuente MD HEMATOLOGY ORDERAB LES [facility] [place] [address] * POC, GLUCOSE (05/20/2024 3:11 AM EDT) Glucometer, POC 163 65 - 199 mg/dL 05/20/2024 3:12 AM EDT [facility] Comment:Supplemental ranges: <140 mg/dL before meals <180 mg/dL all other times of the day. Blood CAPILLARY BLOOD / Unknown 05/20/2024 3:11 AM EDT 05/20/2024 3:12 AM EDT Saba Spears MD POINT OF CARE TEST ORDERABLES Performing Organization Address City/[facility]/ZIP Co de Phone Number [facility] [address] * POC, GLUCOSE (05/19/2024 11:07 PM EDT) Glucometer, POC 136 65 - 199 mg/dL 05/19/2024 11:07 PM EDT [facility] Comment:Supplemental ranges: <140 mg/dL before meals <180 mg/dL all other times of the day. Blood CAPILLARY BLOOD / Unknown 05/19/2024 11:07 PM EDT 05/19/2024 11:07 PM EDT Saba Spears MD POINT OF CARE TEST ORDERABLES [facility] [place] [address] * POC, GLUCOSE (05/19/2024 8:20 PM EDT) Glucometer, POC 150 65 - 199 mg/dL 05/19/2024 8:20 PM EDT [facility] Comment:Supplemental ranges: <140 mg/dL before meals <180 mg/dL all other times of the day. Blood CAPILLARY BLOOD / Unknown 05/19/2024 8:20 PM EDT 05/19/2024 8:21 PM EDT Saba Spears MD POINT OF CARE TEST ORDERABLES [facility] [address] * (ABNORMAL) Iron and TIBC (05/19/2024 5:09 PM EDT) [facility] Iron 58 45 - 160 mcg/dL 05/19/2024 6:56 PM EDT [facility] Unsaturated Iron Binding Capacity 143 110 - 370 mcg/dL 05/19/2024 6:56 PM EDT [facility] TIBC 201(L) 250 - 450 mcg/dL 05/19/2024 6:56 PM EDT [facility] Iron Saturation 29 20 - 50 % 6:56 PM EDT [facility] Blood VENOUS BLOOD SPECIMEN / Unknown IP Care Team Draw / Unknown 05/19/2024 5:09 PM EDT 05/19/2024 5:43 PM EDT Saba Spears MD CHEMISTRY ORDERABLE S [facility] [address] * PTH (05/19/2024 5:09 PM EDT) [facility] Parathyroid Hormone 27 15 - 65 pg/mL 05/19/2024 6:15 PM EDT [facility] Blood VENOUS BLOOD SPECIMEN / Unknown IP Care Team Draw / Unknown 05/19/2024 5:09 PM EDT 05/19/2024 5:43 PM EDT Saba Spears MD CHEMISTRY ORDERABLE S [facility] [address] * Ferritin (05/19/2024 5:08 PM EDT) Ferritin 191 31 - 409 ng/ml 05/19/2024 6:24 PM EDT [facility] Blood VENOUS BLOOD SPECIMEN / Unknown IP Care Team Draw / Unknown 05/19/2024 5:08 PM EDT 05/19/2024 5:43 PM EDT Saba Spears MD CHEMISTRY ORDERABLE S Performing Organization Address City/[facility]/ZIP Co de Phone Number [facility] [place] [address] * POC, GLUCOSE (05/19/2024 3:59 PM EDT) Glucometer, POC 185 65 - 199 mg/dL 05/19/2024 3:59 PM EDT [facility] Comment:Supplemental ranges: <140 mg/dL before meals <180 mg/dL all other times of the day. Blood CAPILLARY BLOOD / Unknown 05/19/2024 3:59 PM EDT 05/19/2024 3:59 PM EDT Saba Spears MD POINT OF CARE TEST ORDERABLES [facility] [address] * POC, GLUCOSE (05/19/2024 12:32 PM EDT) Glucometer, POC 143 65 - 199 mg/dL 05/19/2024 12:32 PM EDT [facility] Comment:Supplemental ranges: <140 mg/dL before meals <180 mg/dL all other times of the day. Blood CAPILLARY BLOOD / Unknown 05/19/2024 12:32 PM EDT 05/19/2024 12:32 PM EDT Saba Spears MD POINT OF CARE TEST ORDERABLES Performing Organization Address City/[facility]/ZIP Co de Phone Number [facility] [place] [address] * POC, GLUCOSE (05/19/2024 8:12 AM EDT) Glucometer, POC 181 65 - 199 mg/dL 05/19/2024 8:13 AM EDT [facility] Comment:Supplemental ranges: <140 mg/dL before meals <180 mg/dL all other times of the day. Blood CAPILLARY BLOOD / Unknown 05/19/2024 8:12 AM EDT 05/19/2024 8:13 AM EDT Saba Spears MD POINT OF CARE TEST ORDERABLES Performing Organization Address [facility] Co de Phone Number [facility] [address] * (ABNORMAL) Magnesium (05/19/2024 5:11 AM EDT) Magnesium 1.08(H) 0.69 - 1.07 mMol/L 05/19/2024 5:58 AM EDT [facility] Blood VENOUS BLOOD SPECIMEN / Unknown IP Care Team Draw / Unknown 05/19/2024 5:11 AM EDT 05/19/2024 5:30 AM EDT Mary De La Fuente MD CHEMISTRY ORDERABL ES Performing Organization Address City/[facility]/ZIP Co de Phone Number [facility] [place] [address] * (ABNORMAL) Phosphorus (05/19/2024 5:11 AM EDT) Phosphorus 5.1(H) 2.5 - 4.5 mg/dL 05/19/2024 5:58 AM EDT [facility] Blood VENOUS BLOOD SPECIMEN / Unknown IP Care Team Draw / Unknown 05/19/2024 5:11 AM EDT 05/19/2024 5:30 AM EDT Mary De La Fuente MD CHEMISTRY ORDERABL ES [facility] [address] * (ABNORMAL) Basic Metabolic Panel (non-fasting) (05/19/2024 5:11 AM EDT) Glucose 162 65 - 199 mg/dL 05/19/2024 6:53 AM EDT [facility] Comment:Glucose Concentratio n >=200 mg/dL plus symptoms is consistent with Diabetes Mellitus. Blood Urea Nitrogen 118(H) 10 - 20 mg/dL 05/19/2024 6:53 AM [facility] Creatinine 2.75(H) 0.80 - 1.50 mg/dL 05/19/2024 6:53 AM [facility] Sodium 136 135 - 145 mMol/L 05/19/2024 6:53 AM [facility] Potassium 5.2(H) 3.5 - 5.0 mMol/L 05/19/2024 6:53 AM [facility] Chloride 108(H) 98 - 107 mMol/L 05/19/2024 6:53 AM [facility] Carbon Dioxide 18(L) 22 - 31 mMol/L 05/19/2024 6:53 AM [facility] Anion Gap 10 5 - 15 mMol/L 05/19/2024 6:53 AM [facility] Calcium 9.3 8.5 - 10.5 mg/dL 05/19/2024 6:53 AM [facility] Est Glomerular Filtration Rate - Male 24 mL/min/1. 73 m?? 05/19/2024 6:53 AM [facility] Comment: This patient's estimated GFR [...] Fasting Status No 05/19/2024 6:53 AM EDT [facility] Blood VENOUS BLOOD SPECIMEN / Unknown IP Care Team Draw / Unknown 05/19/2024 5:11 AM EDT 05/19/2024 5:30 AM EDT Mary De La Fuente MD CHEMISTRY ORDERABL ES [facility] [place] [address] * (ABNORMAL) CBC (with Diff) (05/19/2024 5:11 AM EDT) White Blood Cell 12.77(H) 4.00 - 9.50 x10(3)/mc L 05/19/2024 5:37 AM [facility] Red Blood Cell 3.11(L) 4.58 - 5.54 x10(6)/mc L 05/19/2024 5:37 AM [facility] Hemoglobin 9.3(L) 13.7 - 16.5 g/dL 05/19/2024 5:37 AM [facility] Hematocrit 28.9(L) 40.5 - 48.5 % 05/[facility] Mean Cell Volume 92.9 82.9 - 93.1 fL 05/19/2024 5:37 AM [facility] Mean Cell Hemoglobin 29.9 27.5 - 32.1 pg 05/19/2024 5:37 AM [facility] Mean Cell Hemoglobin Concentration 32.2 32.0 - 35.7 g/dL 05/19/2024 5:37 AM [facility] Platelet 379(H) 145 - 357 x10(3)/mc L 05/19/2024 5:37 AM [facility] Mean Platelet Volume 10.2 7.6 - 12.9 fL 05/19/2024 5:37 AM [facility] RDW Standard Deviation 53.1(H) 36.0 - 45.0 fL 05/19/2024 5:37 AM [facility] RDW coefficient of variation 15.8(H) 11.4 - 13.8 % 05/19/2024 5:37 AM [facility] NRBC% auto 0.0 % 05/19/2024 5:37 AM [facility] NRBC Absolute 0.00 0.00 - 0.00 x10(3)/mc L 05/19/2024 5:37 AM [facility] Neutrophil % 78.9 % 05/19/2024 5:37 AM [facility] Neutrophil Absolute 10.06(H) 1.70 - 6.10 x10(3)/mc L 05/19/2024 5:37 AM [facility] Lymph % 8.1 % 05/19/2024 5:37 AM [facility] Lymph Absolute 1.03 0.90 - 3.20 x10(3)/mc L 05/19/2024 5:37 AM [facility] Monocyte % 10.3 % 05/19/2024 5:37 AM [facility] Monocyte Absolute 1.32(H) 0.30 - 0.90 x10(3)/mc L 05/19/2024 5:37 AM [facility] Eos % 1.6 % 05/19/2024 5:37 AM [facility] Eos Absolute 0.21 0.00 - 0.40 x10(3)/mc L 05/19/2024 5:37 AM EDT [facility] Basophil % 0.2 % 05/19/2024 5:37 AM EDT [facility] Baso Absolute 0.03 0.00 - 0.10 x10(3)/mc L 05/19/2024 5:37 AM EDT [facility] Immature Gran % 0.9 % 5:37 AM EDT [facility] Immature Gran Absolute 0.12(H) 0.00 - 0.04 x10(3)/mc L 05/19/2024 5:37 AM EDT [facility] Blood VENOUS BLOOD SPECIMEN / Unknown IP Care Team Draw / Unknown 05/19/2024 5:11 AM EDT 05/19/2024 5:30 AM EDT Mary De La Fuente MD HEMATOLOGY ORDERAB LES Performing Organization Address City/[facility]/ZIP Co de Phone Number [facility] [place] [address] * POC, GLUCOSE (05/19/2024 3:27 AM EDT) Glucometer, POC 171 65 - 199 mg/dL 05/19/2024 3:28 AM EDT [facility] Comment:Supplemental ranges: <140 mg/dL before meals <180 mg/dL all other times of the day. Blood CAPILLARY BLOOD / Unknown 05/19/2024 3:27 AM EDT 05/19/2024 3:28 AM EDT Saba Spears MD POINT [place] [address] * POC, GLUCOSE (05/19/2024 12:02 AM EDT) Glucometer, POC 183 65 - 199 mg/dL 05/19/2024 12:02 AM EDT [facility] Comment:Supplemental ranges: <140 mg/dL before meals <180 mg/dL all other times of the day. Blood CAPILLARY BLOOD / Unknown 05/19/2024 12:02 AM EDT 05/19/2024 12:02 AM EDT Saba Separs MD POINT OF CARE TEST ORDERABLES Performing Organization Address City/[facility]/ZIP Co de Phone Number [facility] [place] [address] * (ABNORMAL) POC, GLUCOSE (05/18/2024 8:05 PM EDT) Glucometer, POC 207(H) 65 - 199 mg/dL 05/18/2024 8:06 PM EDT [facility] Comment:Supplemental ranges: <140 mg/dL before meals <180 mg/dL all other times of the day. Blood CAPILLARY BLOOD / Unknown 05/18/2024 8:05 PM EDT 05/18/2024 8:06 PM EDT Saba Spears MD POINT OF CARE TEST ORDERABLES Performing Organization Address City/[facility]/ZIP Co de Phone Number [facility] [place] [address] * POC, GLUCOSE (05/18/2024 6:14 PM EDT) Glucometer, POC 174 65 - 199 mg/dL 05/18/2024 6:15 PM EDT [facility] Comment:Supplemental ranges: <140 mg/dL before meals <180 mg/dL all other times of the day. Blood CAPILLARY BLOOD / Unknown 05/18/2024 6:14 PM EDT 05/18/2024 6:15 PM EDT Saba Spears MD POINT OF CARE TEST ORDERABLES Performing Organization Address City/[facility]/ZIP Co de Phone Number [facility] [place] [address] * (ABNORMAL) Basic Metabolic Panel (05/18/2024 5:04 PM EDT) Glucose 170 65 - 199 mg/dL 05/18/2024 6:14 PM [facility] Comment:Glucose Concentratio n >=200 mg/dL plus symptoms is consistent with Diabetes Mellitus. Blood Urea Nitrogen 116(H) 10 - 20 mg/dL 05/18/2024 6:14 PM [facility] Creatinine 2.64(H) 0.80 - 1.50 mg/dL 05/18/2024 6:14 PM [facility] Sodium 139 135 - 145 mMol/L 05/18/2024 6:14 PM [facility] Potassium 5.4(H) 3.5 - 5.0 mMol/L 05/18/2024 6:14 PM [facility] Chloride 110(H) 98 - 107 mMol/L 05/18/2024 6:14 PM [facility] Carbon Dioxide 17(L) 22 - 31 mMol/L 05/18/2024 6:14 PM [facility] Anion Gap 12 5 - 15 mMol/L 05/18/2024 6:14 PM [facility] Calcium 9.2 8.5 - 10.5 mg/dL 05/18/2024 6:14 PM [facility] Est Glomerular Filtration Rate - Male 25 mL/min/1. 73 m?? 05/18/2024 6:14 PM [facility] Comment: This patient's estimated GFR [...] Fasting Status No 05/18/2024 6:14 PM EDT [facility] Blood VENOUS BLOOD SPECIMEN / Unknown IP Care Team Draw / Unknown 05/18/2024 5:04 PM EDT 05/18/2024 5:11 PM EDT Saba Spears MD CHEMISTRY ORDERABLE S Performing Organization Address [facility]/ZIP Co de Phone Number [facility] [address] * (ABNORMAL) POC, GLUCOSE (05/18/2024 11:45 AM EDT) Glucometer, POC 211(H) 65 - 199 mg/dL 05/18/2024 11:45 AM EDT [facility] Comment:Supplemental ranges: <140 mg/dL before meals <180 mg/dL all other times of the day. Blood CAPILLARY BLOOD / Unknown 05/18/2024 11:45 AM EDT 05/18/2024 11:45 AM EDT Saba Spears MD POINT OF CARE TEST ORDERABLES Performing Organization Address [facility] Co de Phone Number [facility] [address] * C diff Screen (05/18/2024 11:31 AM EDT) C Diff Interp Negative Negative 05/18/2024 3:02 PM EDT [facility] Comment:Clostridioides diffi cile is not present in the specimen. If patient is having diarrhea suspected to be from an infectious cause, then Soap & Water Contact Precautions are still required. If patient is having diarrhea with no suspected infectious cause use standard precautions. C Diff PCR Negative Negative, Indeterminate 05/18/2024 3:02 PM EDT [facility] Stool STOOL SPECIMEN / Unknown Non Blood Collection / Unknown 05/18/2024 11:31 AM EDT 05/18/2024 12:09 PM EDT Saba Spears MD MICROBIOLOGY - GENE RAL ORDERABLES Performing Organization Address City/[facility]/ZIP Co de Phone Number [facility] [address] * C Diff PCR (05/18/2024 11:31 AM EDT) Stool STOOL SPECIMEN / Unknown Non Blood Collection / Unknown 05/18/2024 11:31 AM EDT 05/18/2024 12:09 PM EDT Saba Spears MD MICROBIOLOGY - GENE RAL ORDERABLES Performing Organization Address City/[facility]/ZIP Co de Phone Number [facility] [place] [address] * Creatinine, urine, random (05/18/2024 8:57 AM EDT) Creatinine, Urine 44 mg/dL 05/18/2024 9:36 AM EDT [facility] Urine URINE SPECIMEN / Unknown Non Blood Collection / Unknown 05/18/2024 8:57 AM EDT 05/18/2024 9:07 AM EDT Saba Spears MD URINE ORDERABLES Performing Organization Address [facility] de Phone Number [facility] [address] * Electrolytes, urine, random (05/18/2024 8:57 AM EDT) Sodium, Urine 50 mMol/L 05/18/2024 12:09 PM EDT [facility] Potassium, Urine 13 mMol/L 05/18/2024 12:09 PM EDT [facility] Chloride, Urine 35 mMol/L 05/18/2024 12:09 PM EDT [facility] Urine URINE SPECIMEN / Unknown Non Blood Collection / Unknown 05/18/2024 8:57 AM EDT 05/18/2024 9:07 AM EDT Saba Spears MD URINE ORDERABLES Performing Organization Address City/[facility]/ZIP Co de Phone Number [facility] [place] [address] * POC, GLUCOSE (05/18/2024 8:34 AM EDT) Glucometer, POC 182 65 - 199 mg/dL 05/18/2024 8:35 AM EDT [facility] Comment:Supplemental ranges: <140 mg/dL before meals <180 mg/dL all other times of the day. Blood CAPILLARY BLOOD / Unknown 05/18/2024 8:34 AM EDT 05/18/2024 8:35 AM EDT Saba Spears MD POINT OF CARE TEST ORDERABLES Performing Organization Address [facility] Co de Phone Number [facility] [place] [address] * POC, GLUCOSE (05/18/2024 4:10 AM EDT) Glucometer, POC 163 65 - 199 mg/dL 05/18/2024 4:10 AM EDT [facility] Comment:Supplemental ranges: <140 mg/dL before meals <180 mg/dL all other times of the day. Blood CAPILLARY BLOOD / Unknown 05/18/2024 4:10 AM EDT 05/18/2024 4:11 AM EDT Saba Spears MD POINT OF CARE TEST ORDERABLES Performing Organization Address City/[facility]/ZIP Co de Phone Number [facility] [place] [address] * (ABNORMAL) CBC (with Diff) (05/18/2024 4:01 AM EDT) White Blood Cell 9.84(H) 4.00 - 9.50 x10(3)/mc L 05/18/2024 4:19 AM EDT [facility] Red Blood Cell 3.24(L) 4.58 - 5.54 x10(6)/mc L 05/18/2024 4:19 AM [facility] Hemoglobin 9.6(L) 13.7 - 16.5 g/dL 05/18/2024 4:19 AM [facility] Hematocrit 31.4(L) 40.5 - 48.5 % 05/18/2024 4:19 AM [facility] Mean Cell Volume 96.9(H) 82.9 - 93.1 fL 05/18/2024 4:19 AM [facility] Mean Cell Hemoglobin 29.6 27.5 - 32.1 pg 05/18/2024 4:19 AM [facility] Mean Cell Hemoglobin Concentration 30.6(L) 32.0 - 35.7 g/dL 05/18/2024 4:19 AM [facility] Platelet 335 145 - 357 x10(3)/mc L 05/18/2024 4:19 AM [facility] Mean Platelet Volume 10.3 7.6 - 12.9 fL 05/18/2024 4:19 AM [facility] RDW Standard Deviation 56.4(H) 36.0 - 45.0 fL 05/18/2024 4:19 AM [facility] RDW coefficient of variation 15.7(H) 11.4 - 13.8 % 05/18/2024 4:19 AM [facility] NRBC% auto 0.2 % 05/18/2024 4:19 AM [facility] NRBC Absolute 0.02(H) 0.00 - 0.00 x10(3)/mc L 05/18/2024 4:19 AM [facility] Neutrophil % 76.5 % 05/18/2024 4:19 AM [facility] Neutrophil Absolute 7.52(H) 1.70 - 6.10 x10(3)/mc L 05/18/2024 4:19 AM [facility] Lymph % 8.0 % 05/18/2024 4:19 AM [facility] Lymph Absolute 0.79(L) 0.90 - 3.20 x10(3)/mc L 05/18/2024 4:19 AM EDT [facility] Monocyte % 12.5 % 05/18/2024 4:19 AM EDT [facility] Monocyte Absolute 1.23(H) 0.30 - 0.90 x10(3)/mc L 05/18/2024 4:19 AM EDT [facility] Eos % 1.9 % 05/18/2024 4:19 AM EDT [facility] Eos Absolute 0.19 0.00 - 0.40 x10(3)/mc L 05/18/2024 4:19 AM EDT [facility] Basophil % 0.2 % 05/18/2024 4:19 AM EDT [facility] Baso Absolute 0.02 0.00 - 0.10 x10(3)/mc L 05/18/2024 4:19 AM EDT [facility] Immature Gran % 0.9 % 4:19 AM EDT [facility] Immature Gran Absolute 0.09(H) 0.00 - 0.04 x10(3)/mc L 05/18/2024 4:19 AM EDT [facility] Blood VENOUS BLOOD SPECIMEN / Unknown IP Care Team Draw / Unknown 05/18/2024 4:01 AM EDT 05/18/2024 4:13 AM EDT Mary De La Fuente MD HEMATOLOGY ORDERAB LES [facility] [place] [address] * (ABNORMAL) Magnesium (05/18/2024 4:00 AM EDT) Magnesium 1.09(H) 0.69 - 1.07 mMol/L 05/18/2024 10:11 AM EDT [facility] Blood VENOUS BLOOD SPECIMEN / Unknown IP Care Team Draw / Unknown 05/18/2024 4:00 AM EDT 05/18/2024 4:13 AM EDT Mary De La Fuente MD CHEMISTRY ORDERABL ES Performing Organization Address [facility] Co de Phone Number [facility] [address] * (ABNORMAL) Phosphorus (05/18/2024 4:00 AM EDT) Phosphorus 4.7(H) 2.5 - 4.5 mg/dL 05/18/2024 10:11 AM EDT [facility] Blood VENOUS BLOOD SPECIMEN / Unknown IP Care Team Draw / Unknown 05/18/2024 4:00 AM EDT 05/18/2024 4:13 AM EDT Mary De La Fuente MD CHEMISTRY ORDERABL ES Performing Organization Address [facility] Co de Phone Number [facility] [place] [address] * (ABNORMAL) Basic Metabolic Panel (non-fasting) (05/18/2024 4:00 AM EDT) Glucose 144 65 - 199 mg/dL 05/18/2024 10:11 AM EDT [facility] Comment:Glucose Concentratio n >=200 mg/dL plus symptoms is consistent with Diabetes Mellitus. Blood Urea Nitrogen 105(H) 10 - 20 mg/dL 05/18/2024 10:11 AM EDT [facility] Creatinine 2.69(H) 0.80 - 1.50 mg/dL 05/18/2024 10:11 AM EDT [facility] Sodium 134(L) 135 - 145 mMol/L 05/18/2024 10:11 AM EDT [facility] Potassium 5.6(H) 3.5 - 5.0 mMol/L 05/18/2024 10:11 AM EDT [facility] Chloride 107 98 - 107 mMol/L 05/18/2024 10:11 AM EDT [facility] Carbon Dioxide 11(L) 22 - 31 mMol/L 05/18/2024 10:11 AM EDT [facility] Anion Gap 16(H) 5 - 15 mMol/L 05/18/2024 10:11 AM EDT [facility] Calcium 8.8 8.5 - 10.5 mg/dL 05/18/2024 10:11 AM EDT [facility] Est Glomerular Filtration Rate - Male 25 mL/min/1. 73 m?? 05/18/2024 10:11 AM EDT [facility] Comment: This patient's estimated GFR [...] Fasting Status No 05/18/2024 10:11 AM EDT [facility] Blood VENOUS BLOOD SPECIMEN / Unknown IP Care Team Draw / Unknown 05/18/2024 4:00 AM EDT 05/18/2024 4:13 AM EDT Mary De La Fuente MD CHEMISTRY ORDERABL ES [facility] [place] [address] * (ABNORMAL) POC, GLUCOSE (05/17/2024 11:30 PM EDT) [facility] Signature Glucometer, POC 232(H) 65 - 199 mg/dL 05/17/2024 11:30 PM EDT [facility] Comment:Supplemental ranges: <140 mg/dL before meals <180 mg/dL all other times of the day. Blood CAPILLARY BLOOD / Unknown 05/17/2024 11:30 PM EDT 05/17/2024 11:30 PM EDT Saba Spears MD POINT OF CARE TEST ORDERABLES Performing Organization Address City/[facility] Co de Phone Number [facility] [place] [address] * POC, GLUCOSE (05/17/2024 8:12 PM EDT) Glucometer, POC 161 65 - 199 mg/dL 05/17/2024 8:12 PM EDT [facility] Comment:Supplemental ranges: <140 mg/dL before meals <180 mg/dL all other times of the day. Blood CAPILLARY BLOOD / Unknown 05/17/2024 8:12 PM EDT 05/17/2024 8:13 PM EDT Saba Spears MD POINT OF CARE TEST ORDERABLES Performing Organization Address [facility] Co de Phone Number [facility] [place] [address] * POC, GLUCOSE (05/17/2024 5:35 PM EDT) Glucometer, POC 167 65 - 199 mg/dL 05/17/2024 5:35 PM EDT [facility] Comment:Supplemental ranges: <140 mg/dL before meals <180 mg/dL all other times of the day. Blood CAPILLARY BLOOD / Unknown 05/17/2024 5:35 PM EDT 05/17/2024 5:35 PM EDT Saba Spears MD POINT OF CARE TEST ORDERABLES Performing Organization Address City/[facility]/ZIP Co de Phone Number [facility] [place] [address] * POC, GLUCOSE (05/17/2024 12:50 PM EDT) Glucometer, POC 147 65 - 199 mg/dL 05/17/2024 12:50 PM EDT [facility] Comment:Supplemental ranges: <140 mg/dL before meals <180 mg/dL all other times of the day. Blood CAPILLARY BLOOD / Unknown 05/17/2024 12:50 PM EDT 05/17/2024 12:50 PM EDT Saba Spears MD POINT OF CARE TEST ORDERABLES Performing Organization Address City/[facility]/ZIP Co de Phone Number [facility] [place] [address] * POC, GLUCOSE (05/17/2024 8:20 AM EDT) Glucometer, POC 139 65 - 199 mg/dL 05/17/2024 8:21 AM EDT [facility] Comment:Supplemental ranges: <140 mg/dL before meals <180 mg/dL all other times of the day. Blood CAPILLARY BLOOD / Unknown 05/17/2024 8:20 AM EDT 05/17/2024 8:21 AM EDT Treva Diaz MD POINT OF CARE TEST ORDERABLES Performing Organization Address City/[facility]/ZIP Co de Phone Number [facility] [place] [address] * (ABNORMAL) Magnesium (05/17/2024 5:49 AM EDT) Magnesium 1.14(H) 0.69 - 1.07 mMol/L 05/17/2024 6:58 AM EDT [facility] Blood IP Care Team w / Unknown 05/17/2024 5:49 AM EDT 05/17/2024 6:13 AM EDT Mary De La Fuente MD CHEMISTRY ORDERABL ES Performing Organization Address City/[facility]/ZIP Co de Phone Number [facility] [place] [address] * (ABNORMAL) Phosphorus (05/17/2024 5:49 AM EDT) Phosphorus 5.6(H) 2.5 - 4.5 mg/dL 05/17/2024 6:58 AM EDT [facility] Blood IP Care Team w / Nick 05/17/2024 5:49 AM EDT 05/17/2024 6:13 AM EDT Mary De La Fuente MD CHEMISTRY ORDERABL ES [facility] [place] [address] * (ABNORMAL) Basic Metabolic Panel (non-fasting) (05/17/2024 5:49 AM EDT) Glucose 131 65 - 199 mg/dL 05/17/2024 6:58 AM EDT [facility] Comment:Glucose Concentratio n >=200 mg/dL plus symptoms is consistent with Diabetes Mellitus. Blood Urea Nitrogen 86(H) 10 - 20 mg/dL 05/17/2024 6:58 AM T [facility] Creatinine 3.07(H) 0.80 - 1.50 mg/dL 05/17/2024 6:58 AM [facility] Sodium 134(L) 135 - 145 mMol/L 05/17/2024 6:58 AM [facility] Potassium 5.0 3.5 - 5.0 mMol/L 05/17/2024 6:58 AM [facility] Chloride 103 98 - 107 mMol/L 05/17/2024 6:58 AM [facility] Carbon Dioxide 21(L) 22 - 31 mMol/L [facility] Anion Gap 10 5 - 15 mMol/L 05/17/2024 6:58 AM [facility] Calcium 8.7 8.5 - 10.5 mg/dL 05/17/2024 6:58 AM [facility] Est Glomerular Filtration Rate - Male 21 mL/min/1. 73 m?? 05/17/2024 6:58 AM [facility] Comment: This patient's estimated GFR [...] Fasting Status No 05/17/2024 6:58 AM T [facility] Blood IP Care Team w / Nick 05/17/2024 5:49 AM EDT 05/17/2024 6:13 AM EDT Mary De La Fuente MD CHEMISTRY ORDERABL ES Performing Organization Address City/State/[facility] Co de Phone Number [facility] [place] [address] * (ABNORMAL) CBC (with Diff) (05/17/2024 5:49 AM EDT) White Blood Cell 8.61 4.00 - 9.50 x10(3)/mc L 05/17/2024 6:28 AM EDT [facility] Red Blood Cell 3.54(L) 4.58 - 5.54 x10(6)/mc L 05/17/2024 6:28 AM EDT [facility] Hemoglobin 10.5(L) 13.7 - 16.5 g/dL 05/17[facility]2024 [facility] Hematocrit 33.9(L) 40.5 - 48.5 % 05/17/2024 [facility] Mean Cell Volume 95.8(H) 82.9 - 93.1 fL 05/17/2024 [facility] Mean Cell Hemoglobin 29.7 27.5 - 32.1 pg 05/17/2024 6:28 AM [facility] Mean Cell Hemoglobin Concentration 31.0(L) 32.0 - 35.7 g/dL 05/17/2024 6:28 AM [facility] Platelet 341 145 - 357 x10(3)/mc L 05/17/2024 6:28 AM [facility] Mean Platelet Volume 10.4 7.6 - 12.9 fL 05/17/2024 6:28 AM [facility] RDW Standard Deviation 56.5(H) 36.0 - 45.0 fL 05/17/2024 6:28 AM [facility] RDW coefficient of variation 15.7(H) 11.4 - 13.8 % 05/17/2024 6:28 AM [facility] NRBC% auto 0.0 % 05/17/2024 6:28 AM [facility] NRBC Absolute 0.00 0.00 - 0.00 x10(3)/mc L 05/17/2024 6:28 AM [facility] Neutrophil % 76.3 % 05/17/2024 6:28 AM [facility] Neutrophil Absolute 6.57(H) 1.70 - 6.10 x10(3)/mc L 05/17/2024 6:28 AM [facility] Lymph % 9.9 % 05/17/2024 6:28 AM [facility] Lymph Absolute 0.85(L) 0.90 - 3.20 x10(3)/mc L 05/17/2024 6:28 AM [facility] Monocyte % 11.7 % 05/17/2024 6:28 AM [facility] Monocyte Absolute 1.01(H) 0.30 - 0.90 x10(3)/mc L 05/17/2024 6:28 AM [facility] Eos % 0.8 % 05/17/2024 6:28 AM [facility] Eos Absolute 0.07 0.00 - 0.40 x10(3)/mc L 05/17/2024 6:28 AM EDT [facility] Basophil % 0.1 % 05/17/2024 6:28 AM EDT [facility] Baso Absolute 0.01 0.00 - 0.10 x10(3)/mc L 05/17/2024 6:28 AM EDT [facility] Immature Gran % 1.2 % 6:28 AM EDT [facility] Immature Gran Absolute 0.10(H) 0.00 - 0.04 x10(3)/mc L 05/17/2024 6:28 AM EDT [facility] Blood IP Care Team Gia w / Unknown 05/17/2024 5:49 AM EDT 05/17/2024 6:13 AM EDT Mary De La Fuente MD HEMATOLOGY ORDERAB LES Performing Organization Address City/[facility]/ZIP Co de Phone Number [facility] [place] [address] * Vancomycin Level, Random (05/17/2024 5:49 AM EDT) [facility] Vancomycin, Random 22.4 mg/L 2023 6:58 AM EDT [facility] Comment:This level is for de termination of the patient's vancomycin zbvd-wbxyl-mff-curve (AUC) value. Contact the inpatient pharmacy for interpretation. Blood IP Care Team Gia w / Unknown 05/17/2024 5:49 AM EDT 05/17/2024 6:13 AM EDT Treva Diaz MD CHEMISTRY ORDERABL ES Performing Organization Address [facility] Co de Phone Number [facility] [place] [address] * POC, GLUCOSE (05/17/2024 3:54 AM EDT) Glucometer, POC 135 65 - 199 mg/dL 05/17/2024 3:55 AM EDT [facility] Comment:Supplemental ranges: <140 mg/dL before meals <180 mg/dL all other times of the day. Blood CAPILLARY BLOOD / Unknown 05/17/2024 3:54 AM EDT 05/17/2024 3:55 AM EDT Treva Diaz MD POINT OF CARE TEST ORDERABLES [facility] [place] [address] * POCT Glucose (05/16/2024 11:46 PM EDT) Glucose, POC 148 65 - 199 mg/dL [facility] Comment: Supplemental ranges: <140 mg/dL before meals <180 mg/dL all other times of the day Blood 05/16/2024 11:4 6 PM EDT 05/16/2024 11:46 PM EDT Treva Diaz MD POINT OF CARE TEST ORDERABLES Performing Organization Address City/[facility]/ZIP Co de Phone Number [facility] [place] [address] * POCT Glucose (05/16/2024 9:06 PM EDT) Glucose, POC 191 65 - 199 mg/dL [facility] Comment: Supplemental ranges: <140 mg/dL before meals <180 mg/dL all other times of the day Blood 05/16/2024 9:06 PM EDT 05/16/2024 9:06 PM EDT Treva Diaz MD POINT OF CARE TEST ORDERABLES [facility] [place] [address] * POCT Glucose (05/16/2024 8:04 PM EDT) Glucose, POC 199 65 - 199 mg/dL [facility] Comment: Supplemental ranges: <140 mg/dL before meals <180 mg/dL all other times of the day Blood 05/16/2024 8:04 PM EDT 05/16/2024 8:04 PM EDT Treva Diaz MD POINT OF CARE TEST ORDERABLES [facility] [place] [address] * POCT Glucose (05/16/2024 4:51 PM EDT) Glucose, POC 162 65 - 199 mg/dL [facility] Comment: Supplemental ranges: <140 mg/dL before meals <180 mg/dL all other times of the day Blood 05/16/2024 4:51 PM EDT 05/16/2024 4:51 PM EDT Treva Diaz MD POINT OF CARE TEST ORDERABLES [facility] [place] [address] * POCT Glucose (05/16/2024 12:48 PM EDT) Glucose, POC 153 65 - 199 mg/dL [facility] Comment: Supplemental ranges: <140 mg/dL before meals <180 mg/dL all other times of the day Blood 05/16/2024 12:4 8 PM EDT 05/16/2024 12:48 PM EDT Treva Diaz MD POINT OF CARE TEST ORDERABLES [facility] [place] [address] * POCT Glucose (05/16/2024 8:45 AM EDT) Glucose, POC 165 65 - 199 mg/dL [facility] Comment: Supplemental ranges: <140 mg/dL before meals <180 mg/dL all other times of the day Blood 05/16/2024 8:45 AM EDT 05/16/2024 8:45 AM EDT Treva Diaz MD POINT OF CARE TEST ORDERABLES Performing Organization Address City/State/[facility] Co de Phone Number [facility] [place] [address] * (ABNORMAL) Differential, Automated (05/16/2024 5:14 AM EDT) Neutrophil % 79.4 % [facility] Neutrophil Absolute 9.22(H) 1.70 - 6.10 x10(3)/mc L [facility] Lymph % 6.6 % [facility] Lymphocytes Abs 0.8(L) 0.9 - 3.2 x10(3)/mc L [facility] Monocyte % 9.5 % [facility] Monocyte Abs 1.1(H) 0.3 - 0.9 x10(3)/mc L [facility] Eos % 0.0 % [facility] Eosinophils Abs 0.0 0.0 - 0.4 x10(3)/mc L [facility] Basophil % 0.2 % [facility] Baso Absolute 0.0 0.0 - 0.1 x10(3)/mc L [facility] Immature Gran % 4.30 % [facility] Comment: Immature granulocytes(IG's)percentage and absolute count will include metamyelocytes, myelocytes, and promyelocytes. Blood smears from CBCs yielding IG's will be scanned manually for concordance. If this scan disagrees with the automated IG or if promyelocytes are noted, a manual differential will be performed. Immature Gran Absolute 0.50(H) 0.00 - 0.04 x10(3)/mc L [facility] Blood 05/16/2024 5:14 AM EDT 05/16/2024 5:38 AM EDT Narrative Resulting Agency Comment Spec In Lab Carlotta Davis MD HEMATOLOGY OR DERABLES [facility] [place] [address] * (ABNORMAL) Hemogram (05/16/2024 5:14 AM EDT) White Blood Cell 11.6(H) 4.0 - 9.5 x10(3)/mc L [facility] Red Blood Cell 3.59(L) 4.58 - 5.54 x10(6)/mc L [facility] Hemoglobin 10.5(L) 13.7 - 16.5 g/dL [facility] Hematocrit 33.8(L) 40.5 - 48.5 % [facility] Mean Cell Volume 94.2(H) 82.9 - 93.1 fL [facility] Mean Cell Hemoglobin 29.2 27.5 - 32.1 pg [facility] Mean Cell Hemoglobin Concentration 31.1(L) 32.0 - 35.7 g/dL [facility] Platelet 317 145 - 357 x10(3)/mc L [facility] RDW Standard Deviation 55.1(H) 36.0 - 45.0 fL [facility] RDW coefficient of variation 15.9(H) 11.4 - 13.8 % [facility] Mean Platelet Volume 10.6 7.6 - 12.9 fL [facility] NRBC% auto 0.0 % [facility] NRBC Absolute 0.000 0.000 - 0.000 x10(3)/ L [facility] Blood 05/16/2024 5:14 AM EDT 05/16/2024 5:38 AM EDT Narrative Resulting Agency Comment Spec In Lab Carlotta Davis MD HEMATOLOGY OR DERABLES Performing Organization Address [facility] Co de Phone Number [facility] [address] * (ABNORMAL) Magnesium (05/16/2024 5:14 AM EDT) Magnesium 1.22(H) 0.69 - 1.07 mmol/L [facility] Blood 05/16/2024 5:14 AM EDT 05/16/2024 5:38 AM EDT Narrative Resulting Agency Comment Spec In Lab Mary De La Fuente MD CHEMISTRY ORDERABL ES Performing Organization Address [facility] de Phone Number [facility] [place] [address] * (ABNORMAL) Phosphorus (05/16/2024 5:14 AM EDT) Phosphorus 6.3(H) 2.5 - 4.5 mg/dL [facility] Blood 05/16/2024 5:14 AM EDT 05/16/2024 5:38 AM EDT Narrative Resulting Agency Comment Spec In Lab Mary De La Fuente MD CHEMISTRY ORDERABL ES Performing Organization Address [facility] Co de Phone Number [facility] [address] * (ABNORMAL) Basic Metabolic Panel (non-fasting) (05/16/2024 5:14 AM EDT) Glucose 154 65 - 199 mg/dL [facility] Comment:Diabetes: >=200 mg/d L plus symptoms Blood Urea Nitrogen 74(H) 10 - 20 mg/dL [facility] Creatinine 2.88(H) 0.80 - 1.50 mg/dL [facility] Sodium 133(L) 135 - 145 mmol/L [facility] Potassium 5.0 3.5 - 5.0 mmol/L [facility] Comment: Please note: ??Patients with WBC >100,000 may have falsely elevated Potassium levels. ??For accurate Potassium quantification in these patients send serum separator tube (gold top) for subsequent determinations. ??Contact the Clinical Chemistry Laboratory if there are any questions. Chloride 101 98 - 107 mmol/L [facility] Carbon Dioxide 21(L) 22 - 31 mmol/L [facility] Anion Gap 11 5 - 15 mmol/L [facility] Calcium 8.8 8.5 - 10.5 mg/dL [facility] Est Glomerular Filtration Rate 23(L) >=60 mL/min/1. 73 m?? [facility] Comment: This patient's estimated GFR [...] De La Fuente MD CHEMISTRY ORDERABL ES [facility] [place] [address] * Vancomycin Level, Random (05/16/2024 5:14 AM EDT) Vancomycin, Random 29.1 mg/L [facility] Comment: This level is for determination of the patient's vancomycin ctke-xmemm-jwm-curve (AUC) value. Contact the inpatient pharmacy for interpretation. Blood 05/16/2024 5:14 AM EDT 05/16/2024 5:38 AM EDT Treva Diaz MD CHEMISTRY ORDERABL ES Performing Organization Address City/[facility]/ZIP Co de Phone Number [facility] [place] [address] * POCT Glucose (05/16/2024 3:53 AM EDT) Glucose, POC 166 65 - 199 mg/dL [facility] Comment: Supplemental ranges: <140 mg/dL before meals <180 mg/dL all other times of the day Blood 05/16/2024 3:53 AM EDT 05/16/2024 3:53 AM EDT Treva Diaz MD POINT OF CARE TEST ORDERABLES Performing Organization Address [facility] Co de Phone Number [facility] [place] [address] * POCT Glucose (05/15/2024 11:41 PM EDT) Glucose, POC 171 65 - 199 mg/dL [facility] Comment: Supplemental ranges: <140 mg/dL before meals <180 mg/dL all other times of the day Blood 05/15/2024 11:4 1 PM EDT 05/15/2024 11:41 PM EDT Treva Diaz MD POINT OF CARE TEST ORDERABLES Performing Organization Address City/[facility]/ZIP Co de Phone Number [facility] [place] [address] * POCT Glucose (05/15/2024 10:32 PM EDT) Glucose, POC 183 65 - 199 mg/dL [facility] Comment: Supplemental ranges: <140 mg/dL before meals <180 mg/dL all other times of the day Blood 05/15/2024 10:3 2 PM EDT 05/15/2024 10:32 PM EDT Treva Diaz MD POINT OF CARE TEST ORDERABLES [facility] [place] [address] * POCT Glucose (05/15/2024 7:53 PM EDT) Pathologist [facility] Glucose, POC 187 65 - 199 mg/dL [facility] Comment: Supplemental ranges: <140 mg/dL before meals <180 mg/dL all other times of the day Blood 05/15/2024 7:53 PM EDT 05/15/2024 7:53 PM EDT Treva Diaz MD POINT OF CARE TEST ORDERABLES Performing Organization Address City/[facility]/ZIP Co de Phone Number [facility] [place] [address] * MRSA PCR Screen ([facility]/APD/[facility]) (05/15/2024 4:15 PM EDT) [facility] MRSA PCR Negative Negative [facility] MRSA (Interp) Methicillin-resist ant Staphylococcus aureus (MRSA) is NOT DETECTED The MRSA target DNA sequences (mec and SCC) were not detected within the acceptable ranges using the Xpert MRSA NxG on the GeneXpert Dx System (Fundera). This suggests the absence of MRSA in [...] S. aureus with an empty SCC cassette. [facility] Comment: [VERIFIED DATE]05.15.24 Verified By:Lupe Jensen (Electronic Signature) Nasopharyngeal Swab 05/15/20 4:15 PM EDT 05/15/2024 6:28 PM EDT Comment:Specimen Type->Nasop haryngeal Swab Narrative Resulting Agency Comment Spec In Lab Treva Diaz MD MOLECULAR ORDERABL ES Performing Organization Address [facility]/ZIP Co de Phone Number [facility] [place] [address] * (ABNORMAL) POCT Glucose (05/15/2024 3:20 PM EDT) Glucose, POC 224(H) 65 - 199 mg/dL [facility] Comment: Supplemental ranges: <140 mg/dL before meals <180 mg/dL all other times of the day Blood 05/15/2024 3:20 PM EDT 05/15/2024 3:20 PM EDT Treva Diaz MD POINT OF CARE TEST ORDERABLES Performing Organization Address [facility] Co de Phone Number [facility] [place] [address] * (ABNORMAL) POCT Glucose (05/15/2024 11:39 AM EDT) Glucose, POC 213(H) 65 - 199 mg/dL [facility] Comment: Supplemental ranges: <140 mg/dL before meals <180 mg/dL all other times of the day Blood 05/15/2024 11:3 9 AM EDT 05/15/2024 11:39 AM EDT Treva Diaz MD POINT OF CARE TEST ORDERABLES Performing Organization Address [facility] Co de Phone Number [facility] [place] [address] * POCT Glucose (05/15/2024 8:02 AM EDT) Glucose, POC 190 65 - 199 mg/dL [facility] Comment: Supplemental ranges: <140 mg/dL before meals <180 mg/dL all other times of the day Blood 05/15/2024 8:02 AM EDT 05/15/2024 8:02 AM EDT Treva Diaz MD POINT OF CARE TEST ORDERABLES [facility] [place] [address] * (ABNORMAL) Differential, Automated (05/15/2024 5:12 AM EDT) Neutrophil % 85.3 % [facility] Neutrophil Absolute 11.37(H) 1.70 - 6.10 x10(3)/mc L [facility] Lymph % 3.7 % [facility] Lymphocytes Abs 0.5(L) 0.9 - 3.2 x10(3)/ L [facility] Monocyte % 9.1 % [facility] Monocyte Abs 1.2(H) 0.3 - 0.9 x10(3)/ L [facility] Eos % 0.0 % [facility] Eosinophils Abs 0.0 0.0 - 0.4 x10(3)/ L [facility] Basophil % 0.1 % [facility] Baso Absolute 0.0 0.0 - 0.1 x10(3)/[facility] Immature Gran % 1.80 % [facility] Comment: Immature granulocytes(IG's)percentage and absolute count will include metamyelocytes, myelocytes, and promyelocytes. Blood smears from CBCs yielding IG's will be scanned manually for concordance. If this scan disagrees with the automated IG or if promyelocytes are noted, a manual differential will be performed. Immature Gran Absolute 0.24(H) 0.00 - 0.04 x10(3)/ L [facility] Blood 05/15/2024 5:12 AM EDT 05/15/2024 5:38 AM EDT Narrative Resulting Agency Comment Spec In Lab Carlotta Davis MD HEMATOLOGY OR DERABLES [facility] [place] [address] * (ABNORMAL) Hemogram (05/15/2024 5:12 AM EDT) White Blood Cell 13.4(H) 4.0 - 9.5 x10(3)/mc L [facility] Red Blood Cell 3.58(L) 4.58 - 5.54 x10(6)/ L [facility] Hemoglobin 10.9(L) 13.7 - 16.5 g/dL [facility] Hematocrit 34.1(L) 40.5 - 48.5 % [facility] Mean Cell Volume 95.3(H) 82.9 - 93.1 fL [facility] Mean Cell Hemoglobin 30.4 27.5 - 32.1 pg [facility] Mean Cell Hemoglobin Concentration 32.0 32.0 - 35.7 g/dL [facility] Platelet 227 145 - 357 x10(3)/ L [facility] RDW Standard Deviation 55.8(H) 36.0 - 45.0 [facility] RDW coefficient of variation 15.8(H) 11.4 - 13.8 % [facility] Mean Platelet Volume 10.7 7.6 - 12.9 fL [facility] NRBC% auto 0.0 % [facility] NRBC Absolute 0.000 0.000 - 0.000 x10(3)/[facility] LABORATORY Blood 05/15/2024 5:12 AM EDT 05/15/2024 5:38 AM EDT Narrative Resulting Agency Comment Spec In Lab Carlotta Davis MD HEMATOLOGY OR DERABLES [facility] [place] [address] * (ABNORMAL) Magnesium (05/15/2024 5:12 AM EDT) Magnesium 1.21(H) 0.69 - 1.07 mmol/L [facility] Blood 05/15/2024 5:12 AM EDT 05/15/2024 5:38 AM EDT Narrative Resulting Agency Comment Spec In Lab Mary De La Fuente MD CHEMISTRY ORDERABL ES Performing Organization Address [facility]/ZIP Co de Phone Number [facility] [place] [address] * (ABNORMAL) Phosphorus (05/15/2024 5:12 AM EDT) Phosphorus 6.5(H) 2.5 - 4.5 mg/dL [facility] Comment:result rechecked-HN Blood 05/15/2024 5:12 AM EDT 05/15/2024 5:38 AM EDT Narrative Resulting Agency Comment Spec In Lab Mary De La Fuente MD CHEMISTRY ORDERABL ES Performing Organization Address [facility] Co de Phone Number [facility] [place] [address] * (ABNORMAL) Basic Metabolic Panel (non-fasting) (05/15/2024 5:12 AM EDT) Glucose 217(H) 65 - 199 mg/dL [facility] Comment:Diabetes: >=200 mg/d L plus symptoms Blood Urea Nitrogen 58(H) 10 - 20 mg/dL [facility] Creatinine 2.46(H) 0.80 - 1.50 mg/dL [facility] Comment:result rechecked-HN Sodium 135 135 - 145 mmol/L [facility] Potassium 5.2(H) 3.5 - 5.0 mmol/L [facility] Comment: Please note: ??Patients with WBC >100,000 may have falsely elevated Potassium levels. ??For accurate Potassium quantification in these patients send serum separator tube (gold top) for subsequent determinations. ??Contact the Clinical Chemistry Laboratory if there are any questions. Chloride 100 98 - 107 mmol/L [facility] Carbon Dioxide 23 22 - 31 mmol/L [facility] Anion Gap 12 5 - 15 mmol/L [facility] Calcium 8.8 8.5 - 10.5 mg/dL [facility] Est Glomerular Filtration Rate 27(L) >=60 mL/min/1. 73 m?? [facility] Comment: This patient's estimated GFR [...] De La Fuente MD CHEMISTRY ORDERABL ES [facility] [place] [address] * (ABNORMAL) POCT Glucose (05/15/2024 4:55 AM EDT) Glucose, POC 223(H) 65 - 199 mg/dL [facility] Comment: Supplemental ranges: <140 mg/dL before meals <180 mg/dL all other times of the day Blood 05/15/2024 4:55 AM EDT 05/15/2024 4:55 AM EDT Treva Diaz MD POINT OF CARE TEST ORDERABLES [facility] [place] [address] * (ABNORMAL) POCT Glucose (05/15/2024 2:51 AM EDT) Glucose, POC 279(H) 65 - 199 mg/dL [facility] Comment: Supplemental ranges: <140 mg/dL before meals <180 mg/dL all other times of the day Blood 05/15/2024 2:51 AM EDT 05/15/2024 2:51 AM EDT Treva Diaz MD POINT OF CARE TEST ORDERABLES [facility] [place] [address] * (ABNORMAL) POCT Glucose (05/14/2024 9:03 PM EDT) Glucose, POC 257(H) 65 - 199 mg/dL [facility] Comment: Supplemental ranges: <140 mg/dL before meals <180 mg/dL all other times of the day Blood 05/14/2024 9:03 PM EDT 05/14/2024 9:03 PM EDT Treva Diaz MD POINT OF CARE TEST ORDERABLES [facility] [place] [address] * (ABNORMAL) POCT Glucose (05/14/2024 7:15 PM EDT) Glucose, POC 207(H) 65 - 199 mg/dL [facility] Comment: Supplemental ranges: <140 mg/dL before meals <180 mg/dL all other times of the day Blood 05/14/2024 7:15 PM EDT 05/14/2024 7:15 PM EDT Treva Diaz MD POINT OF CARE TEST ORDERABLES [facility] [place] [address] * POCT Glucose (05/14/2024 4:47 PM EDT) Glucose, POC 188 65 - 199 mg/dL [facility] Comment: Supplemental ranges: <140 mg/dL before meals <180 mg/dL all other times of the day Blood 05/14/2024 4:47 PM EDT 05/14/2024 4:47 PM EDT Treva Diaz MD POINT OF CARE TEST ORDERABLES Performing Organization Address City/[facility]/ZIP Co de Phone Number [facility] [place] [address] * POCT Glucose (05/14/2024 1:21 PM EDT) Glucose, POC 163 65 - 199 mg/dL [facility] Comment: Supplemental ranges: <140 mg/dL before meals <180 mg/dL all other times of the day Blood 05/14/2024 1:21 PM EDT 05/14/2024 1:21 PM EDT Treva Daiz MD POINT OF CARE TEST ORDERABLES Performing Organization Address [facility]/ZIP Co de Phone Number [facility] [place] [address] * Anaerobic Culture (05/14/2024 11:33 AM EDT) Anaerobic Culture No anaerobic organisms isolated [facility] Toe 05/14/2024 11:3 3 AM EDT 05/14/2024 12:33 PM EDT Comment:PROXIMAL RIGHT 2ND T OE Narrative Resulting Agency Comment Spec In Lab Gennaro Meyers MD MICROBIOLOGY - GENE RAL ORDERABLES Performing Organization Address [facility]/ZIP Co de Phone Number [facility] [place] [address] * (ABNORMAL) Tissue culture (05/14/2024 11:33 AM EDT) Tissue Culture One colony of Coagulase negative Staphylococcus species(A) [facility] Gram Stain Few Neutrophils seen Rare Gram Positive Cocci in pairs seen Results called to and read back by Dr. Mihaela Galvan ??05/14/24 14:57:00 (A) [facility] Organism Coagulase negative Staphylococcus species(A) [facility] Organism Gram Positive Cocci in pairs(A) [facility] Toe 05/14/2024 11:3 3 AM [...] Sensitive Comment:Gentamicin i s not appropriate for [place]-therapy. Coagulase Negative Staphylococcus species Levofloxacin MICROSCAN METHOD [...] METHOD Sensitive Gennaro Meyers MD MICROBIOLOGY - [facility] ORDERABLES [facility] [place] [address] * Surgical Pathology Report (05/14/2024 11:32 AM EDT) Surgical Pathology Report [id number] ? Location: [id number]; [id number]; A The signing [...] MD, Shima Verified: ??05/20/2024 11:25 Performed at: ??-[facility] [place] [place], [place] [address] Adult Health Clinical Nurse Specialist: Polly Barnhart MD, FCAP, ??CLIA Certificate: [id number] SPECIMEN(S) SUBMITTED A - RIGHT 2ND TOE, [...] Sections/Processi ng: Blocks submitted for decalcification: A1-A2. Tank Operator sections in 2 cassettes as follows: ?A1-A2: ??Longitudinal section of digit ??cmk [facility] 05/14/2024 11:3 2 AM EDT Gennaro Meyers MD PATHOLOGY/CYTOLOGY ORDERABLES [facility] [place] [address] * Specimen to Pathology (05/14/2024 11:32 AM EDT) AP Specimen 05/14/2024 11:3 2 AM EDT 05/14/2024 11:32 AM EDT Narrative [facility] - 05/14/2024 11:32 AM EDT Specimen requisition ordered. ??Separate Pathology report to follow Treva Diaz MD PATHOLOGY/CYTOLOGY ORDERABLES Performing Organization Address City/[facility] Co de Phone Number [facility] [place] [address] * (ABNORMAL) POCT Glucose (05/14/2024 7:58 AM EDT) [facility] Glucose, POC 203(H) 65 - 199 mg/dL [facility] Comment: Supplemental ranges: <140 mg/dL before meals <180 mg/dL all other times of the day Blood 05/14/2024 7:58 AM EDT 05/14/2024 7:58 AM EDT Treva Diaz MD POINT OF CARE TEST ORDERABLES Performing Organization Address [facility] Co de Phone Number [facility] [place] [address] * (ABNORMAL) Differential, Automated (05/14/2024 5:01 AM EDT) [facility] Neutrophil % 80.5 % [facility] Neutrophil Absolute 12.45(H) 1.70 - 6.10 x10(3)/mc L [facility] Lymph % 5.5 % [facility] Lymphocytes Abs 0.8(L) 0.9 - 3.2 x10(3)/mc L [facility] Monocyte % 12.6 % [facility] Monocyte Abs 2.0(H) 0.3 - 0.9 x10(3)/mc L [facility] Eos % 0.3 % [facility] Eosinophils Abs 0.0 0.0 - 0.4 x10(3)/mc L [facility] Basophil % 0.2 % [facility] Baso Absolute 0.0 0.0 - 0.1 x10(3)/ L [facility] Immature Gran % 0.90 % [facility] Comment: Immature granulocytes(IG's)percentage and absolute count will include metamyelocytes, myelocytes, and promyelocytes. Blood smears from CBCs yielding IG's will be scanned manually for concordance. If this scan disagrees with the automated IG or if promyelocytes are noted, a manual differential will be performed. Immature Gran Absolute 0.14(H) 0.00 - 0.04 x10(3)/[facility]OR[facility] Blood 05/14/2024 5:01 AM EDT 05/14/2024 6:02 AM EDT Narrative Resulting Agency Comment Spec In Lab Carlotta Davis MD HEMATOLOGY OR DERABLES [facility] [place] [id number] * (ABNORMAL) Hemogram (05/14/2024 5:01 AM EDT) White Blood Cell 15.5(H) 4.0 - 9.5 x10(3)/ L [facility] Red Blood Cell 3.55(L) 4.58 - 5.54 x10(6)/mc L [facility] Hemoglobin 10.8(L) 13.7 - 16.5 g/dL [facility] Hematocrit 32.8(L) 40.5 - 48.5 % [facility] Mean Cell Volume 92.4 82.9 - 93.1 fL [facility] Mean Cell Hemoglobin 30.4 27.5 - 32.1 pg [facility] Mean Cell Hemoglobin Concentration 32.9 32.0 - 35.7 g/dL [facility] Platelet 190 145 - 357 x10(3)/ L [facility] RDW Standard Deviation 53.2(H) 36.0 - 45.0 fL [facility] RDW coefficient of variation 15.6(H) 11.4 - 13.8 % [facility] Mean Platelet Volume 11.2 7.6 - 12.9 fL [facility] NRBC% auto 0.0 % [facility] NRBC Absolute 0.000 0.000 - 0.000 x10(3)/mc L [facility] Blood 05/14/2024 5:01 AM EDT 05/14/2024 6:02 AM EDT Narrative Resulting Agency Comment Spec In Lab Carlotta Davis MD HEMATOLOGY OR DERABLES Performing Organization Address [facility] [place] [address] * Magnesium (05/14/2024 5:01 AM EDT) Magnesium 0.98 0.69 - 1.07 mmol/L [facility] Blood 05/14/2024 5:01 AM EDT 05/14/2024 6:02 AM EDT Narrative Resulting Agency Comment Spec In Lab Mary De La Fuente MD CHEMISTRY ORDERABL ES Performing Organization Address [facility] [place] [address] * Phosphorus (05/14/2024 5:01 AM EDT) Phosphorus 2.8 2.5 - 4.5 mg/dL [facility] Blood 05/14/2024 5:01 AM EDT 05/14/2024 6:02 AM EDT Narrative Resulting Agency Comment Spec In Lab Mary De La Fuente MD CHEMISTRY ORDERABL ES Performing Organization Address [facility] Co de Phone Number [facility] [place] [address] * (ABNORMAL) Basic Metabolic Panel (non-fasting) (05/14/2024 5:01 AM EDT) Glucose 172 65 - 199 mg/dL [facility] Comment:Diabetes: >=200 mg/d L plus symptoms Blood Urea Nitrogen 46(H) 10 - 20 mg/dL [facility] Creatinine 1.56(H) 0.80 - 1.50 mg/dL [facility] Sodium 137 135 - 145 mmol/L [facility] Potassium 4.4 3.5 - 5.0 mmol/L [facility] Comment: Please note: ??Patients with WBC >100,000 may have falsely elevated Potassium levels. ??For accurate Potassium quantification in these patients send serum separator tube (gold top) for subsequent determinations. ??Contact the Clinical Chemistry Laboratory if there are any questions. Chloride 105 98 - 107 mmol/L [facility] Carbon Dioxide 22 22 - 31 mmol/L [facility] Anion Gap 10 5 - 15 mmol/L [facility] Calcium 8.7 8.5 - 10.5 mg/dL [facility] Est Glomerular Filtration Rate 47(L) >=60 mL/min/1. 73 m?? [facility] Comment: This patient's estimated GFR [...] MD CHEMISTRY ORDERABL ES Performing Organization Address City/[facility] Co de Phone Number [facility] [place] [address] * Vancomycin Level, Random (05/14/2024 5:01 AM EDT) Vancomycin, Random 13.5 mg/L [facility] Comment: This level is for determination of the patient's vancomycin qzii-rzcfk-qed-curve (AUC) value. Contact the inpatient pharmacy for interpretation. Blood 05/14/2024 5:01 AM EDT 05/14/2024 6:02 AM EDT Treva Diaz MD CHEMISTRY ORDERABL ES Performing Organization Address [facility] Co de Phone Number [facility] [place] [address] * POCT Glucose (05/13/2024 8:41 PM EDT) Glucose, POC 179 65 - 199 mg/dL [facility] Comment: Supplemental ranges: <140 mg/dL before meals <180 mg/dL all other times of the day Blood 05/13/2024 8:41 PM EDT 05/13/2024 8:41 PM EDT Treva Diaz MD POINT OF CARE TEST ORDERABLES Performing Organization Address City/[facility]/ZIP Co de Phone Number [facility] [place] [address] * POCT Glucose (05/13/2024 6:06 PM EDT) Glucose, POC 135 65 - 199 mg/dL [facility] Comment: Supplemental ranges: <140 mg/dL before meals <180 mg/dL all other times of the day Blood 05/13/2024 6:06 PM EDT 05/13/2024 6:06 PM EDT Treva Diaz MD POINT OF CARE TEST ORDERABLES [facility] [place] [address] * POCT Glucose (05/13/2024 11:12 AM EDT) Glucose, POC 163 65 - 199 mg/dL [facility] Comment: Supplemental ranges: <140 mg/dL before meals <180 mg/dL all other times of the day Blood 05/13/2024 11:1 2 AM EDT 05/13/2024 11:12 AM EDT Treva Diaz MD POINT OF CARE TEST ORDERABLES Performing Organization Address City/[facility]/ZIP Co de Phone Number [facility] [place] [address] * POCT Glucose (05/13/2024 7:47 AM EDT) Glucose, POC 194 65 - 199 mg/dL [facility] Comment: Supplemental ranges: <140 mg/dL before meals <180 mg/dL all other times of the day Blood 05/13/2024 7:47 AM EDT 05/13/2024 7:47 AM EDT Treva Diaz MD POINT OF CARE TEST ORDERABLES Performing Organization Address City/[facility]/ZIP Co de Phone Number [facility] [place] [address] * Scan, Peripheral Blood (05/13/2024 5:29 AM EDT) Plat estimate Normal [facility] RBC Morphology Abnormal [facility] Sofía Cells 1-5 /HPF [facility] Plat, Giant Less than 1 /HPF [facility] Blood 05/13/2024 5:29 AM EDT 05/13/2024 5:49 AM EDT Narrative Resulting Agency Comment Spec In Lab Carlotta Davis MD HEMATOLOGY OR DERABLES Performing Organization Address City/[facility]/ZIP Co de Phone Number [facility] [place] [address] * (ABNORMAL) Differential, Automated (05/13/2024 5:29 AM EDT) Neutrophil % 81.8 % [facility] Neutrophil Absolute 12.66(H) 1.70 - 6.10 x10(3)/mc L [facility] Lymph % 5.0 % [facility] Lymphocytes Abs 0.8(L) 0.9 - 3.2 x10(3)/ L [facility] Monocyte % 12.3 % [facility] Monocyte Abs 1.9(H) 0.3 - 0.9 x10(3)/mc L [facility] Eos % 0.2 % [facility] Eosinophils Abs 0.0 0.0 - 0.4 x10(3)/mc L [facility] Basophil % 0.1 % [facility] Baso Absolute 0.0 0.0 - 0.1 x10(3)/mc L [facility] Immature Gran % 0.60 % [facility] Comment: Immature granulocytes(IG's)percentage and absolute count will include metamyelocytes, myelocytes, and promyelocytes. Blood smears from CBCs yielding IG's will be scanned manually for concordance. If this scan disagrees with the automated IG or if promyelocytes are noted, a manual differential will be performed. Immature Gran Absolute 0.09(H) 0.00 - 0.04 x10(3)/mc L [facility] Blood 05/13/2024 5:29 AM EDT 05/13/2024 5:49 AM EDT Narrative Resulting Agency Comment Spec In Lab Carlotta Davis MD HEMATOLOGY OR DERABLES Performing Organization Address City/[facility]/ZIP Co de Phone Number [facility] [place] [address] * (ABNORMAL) Hemogram (05/13/2024 5:29 AM EDT) White Blood Cell 15.5(H) 4.0 - 9.5 x10(3)/ L [facility] Red Blood Cell 3.64(L) 4.58 - 5.54 x10(6)/[facility] Hemoglobin 10.9(L) 13.7 - 16.5 g/dL [facility] Hematocrit 33.3(L) 40.5 - 48.5 % [facility] Mean Cell Volume 91.5 82.9 - 93.1 fL [facility] Mean Cell Hemoglobin 29.9 27.5 - 32.1 pg [facility] Mean Cell Hemoglobin Concentration 32.7 32.0 - 35.7 g/dL [facility] Platelet 186 145 - 357 x10(3)/[facility] RDW Standard Deviation 53.0(H) 36.0 - 45.0 [facility] RDW coefficient of variation 15.8(H) 11.4 - 13.8 % [facility] Mean Platelet Volume 11.8 7.6 - 12.9 fL [facility] NRBC% auto 0.0 % [facility] NRBC Absolute 0.000 0.000 - 0.000 x10(3)/[facility] Blood 05/13/2024 5:29 AM EDT 05/13/2024 5:49 AM EDT Narrative Resulting Agency Comment Spec In Lab Carlotta Davis MD HEMATOLOGY OR DERABLES [facility] [place] [address] * Magnesium (05/13/2024 5:29 AM EDT) Pathologist [facility] Magnesium 0.99 0.69 - 1.07 mmol/L [facility] Blood 05/13/2024 5:29 AM EDT 05/13/2024 5:49 AM EDT Narrative Resulting Agency Comment Spec In Lab Mary De La Fuente MD CHEMISTRY ORDERABL ES Performing Organization Address [facility] Co de Phone Number [facility] [place] [address] * Phosphorus (05/13/2024 5:29 AM EDT) Phosphorus 2.7 2.5 - 4.5 mg/dL [facility] Blood 05/13/2024 5:29 AM EDT 05/13/2024 5:49 AM EDT Narrative Resulting Agency Comment Spec In Lab Mary De La Fuente MD CHEMISTRY ORDERABL ES Performing Organization Address [facility] de Phone Number [facility] [place] [address] * (ABNORMAL) Basic Metabolic Panel (non-fasting) (05/13/2024 5:29 AM EDT) Glucose 166 65 - 199 mg/dL [facility] Comment:Diabetes: >=200 mg/d L plus symptoms Blood Urea Nitrogen 57(H) 10 - 20 mg/dL [facility] Creatinine 1.53(H) 0.80 - 1.50 mg/dL [facility] Sodium 137 135 - 145 mmol/L [facility] Potassium 4.4 3.5 - 5.0 mmol/L [facility] Comment: Please note: ??Patients with WBC >100,000 may have falsely elevated Potassium levels. ??For accurate Potassium quantification in these patients send serum separator tube (gold top) for subsequent determinations. ??Contact the Clinical Chemistry Laboratory if there are any questions. Chloride 104 98 - 107 mmol/L [facility] Carbon Dioxide 24 22 - 31 mmol/L [facility] Anion Gap 9 5 - 15 mmol/L [facility] Calcium 8.7 8.5 - 10.5 mg/dL [facility] Est Glomerular Filtration Rate 49(L) >=60 mL/min/1. 73 m?? [facility] Comment: This patient's estimated GFR [...] MD CHEMISTRY ORDERABL ES Performing Organization Address City/[facility]/ZIP Co de Phone Number [facility] [place] [address] * POCT Glucose (05/12/2024 11:46 PM EDT) Glucose, POC 165 65 - 199 mg/dL [facility] Comment: Supplemental ranges: <140 mg/dL before meals <180 mg/dL all other times of the day Blood 05/12/2024 11:4 6 PM EDT 05/12/2024 11:46 PM EDT Treva Diaz MD POINT OF CARE TEST ORDERABLES [facility] [place] [address] * POCT Glucose (05/12/2024 8:36 PM EDT) Glucose, POC 164 65 - 199 mg/dL [facility] Comment: Supplemental ranges: <140 mg/dL before meals <180 mg/dL all other times of the day Blood 05/12/2024 8:36 PM EDT 05/12/2024 8:36 PM EDT Treva Diaz MD POINT OF CARE TEST ORDERABLES Performing Organization Address City/[facility]/ZIP Co de Phone Number [facility] [place] [address] * POCT Glucose (05/12/2024 5:38 PM EDT) Glucose, POC 175 65 - 199 mg/dL [facility] Comment: Supplemental ranges: <140 mg/dL before meals <180 mg/dL all other times of the day Blood 05/12/2024 5:38 PM EDT 05/12/2024 5:38 PM EDT Treva Diaz MD POINT OF CARE TEST ORDERABLES Performing Organization Address [facility]/ZIP Co de Phone Number [facility] [place] [address] * Vancomycin Level, Random (05/12/2024 2:10 PM EDT) Vancomycin, Random 22.3 mg/L [facility] Comment: This level is for determination of the patient's vancomycin ttvy-ytdka-nnf-curve (AUC) value. Contact the inpatient pharmacy for interpretation. Blood 05/12/2024 2:10 PM EDT 05/12/2024 2:23 PM EDT Treva Diaz MD CHEMISTRY ORDERABL ES Performing Organization Address City/[facility]/ZIP Co de Phone Number [facility] [place] [address] * POCT Glucose (05/12/2024 1:42 PM EDT) Glucose, POC 168 65 - 199 mg/dL [facility] Comment: Supplemental ranges: <140 mg/dL before meals <180 mg/dL all other times of the day Blood 05/12/2024 1:42 PM EDT 05/12/2024 1:42 PM EDT Treva Diaz MD POINT OF CARE TEST ORDERABLES Performing Organization Address City/[facility] Co de Phone Number [facility] [place] [address] * Duplex for DVT, Leg, Unilat (05/12/2024 10:19 AM EDT) VB Text Report Department: Vascular Surgery Lab Patient: [id number] (JOSSY SHANKS) CPT: [id number] Referring Physician: MARY DE LA FUENTE ?? [...] MD VASCULAR ORDERABLE S Performing Organization Address City/[facility]/ZIP Co de Phone Number [facility] * POCT Glucose (05/12/2024 9:00 AM EDT) Glucose, POC 161 65 - 199 mg/dL [facility] Comment: Supplemental ranges: <140 mg/dL before meals <180 mg/dL all other times of the day Blood 05/12/2024 9:00 AM EDT 05/12/2024 9:00 AM EDT Treva Diaz MD POINT OF CARE TEST ORDERABLES Performing Organization Address [facility] Co de Phone Number [facility] [place] [address] * (ABNORMAL) Sedimentation rate (05/12/2024 4:45 AM EDT) [facility] Sedimentation Rate Automated >119(H) 3 - 46 mm/hr [facility] Comment: Effective September 24, 2019 [...] MD HEMATOLOGY ORDERABLE S Performing Organization Address [facility] Co de Phone Number [facility] [place] [address] * (ABNORMAL) CRP, acute inflammation (05/12/2024 4:45 AM EDT) [facility] C-Reactive Protein 152.4(H) <=4.9 mg/L [facility] Blood Venous Draw / Unknown 05/12/2024 4:45 AM EDT 05/12/2024 5:12 AM EDT Narrative Resulting Agency Comment Spec In Lab Juan José Harrison MD CHEMISTRY ORDERABLES Performing Organization Address [facility] Co de Phone Number [facility] [place] [address] * (ABNORMAL) Differential, Automated (05/12/2024 4:45 AM EDT) [facility] Neutrophil % 87.9 % [facility] Neutrophil Absolute 17.31(H) 1.70 - 6.10 x10(3)/mc L [facility] Lymph % 3.9 % [facility] Lymphocytes Abs 0.8(L) 0.9 - 3.2 x10(3)/mc L [facility] Monocyte % 7.4 % [facility] Monocyte Abs 1.4(H) 0.3 - 0.9 x10(3)/ L [facility] Eos % 0.0 % [facility] Eosinophils Abs 0.0 0.0 - 0.4 x10(3)/ L [facility] Basophil % 0.1 % [facility] Baso Absolute 0.0 0.0 - 0.1 x10(3)/ L [facility] Immature Gran % 0.70 % [facility] Comment: Immature granulocytes(IG's)percentage and absolute count will include metamyelocytes, myelocytes, and promyelocytes. Blood smears from CBCs yielding IG's will be scanned manually for concordance. If this scan disagrees with the automated IG or if promyelocytes are noted, a manual differential will be performed. Immature Gran Absolute 0.14(H) 0.00 - 0.04 x10(3)/ L [facility] Blood 05/12/2024 4:45 AM EDT 05/12/2024 5:06 AM EDT Narrative Resulting Agency Comment Spec In Lab Carlotta Davis MD HEMATOLOGY OR DERABLES Performing Organization Address City/State/[facility] Co de Phone Number [facility] [place] [address] * (ABNORMAL) Hemogram (05/12/2024 4:45 AM EDT) White Blood Cell 19.7(H) 4.0 - 9.5 x10(3)/ L [facility] Red Blood Cell 3.58(L) 4.58 - 5.54 x10(6)/mc L [facility] Hemoglobin 10.9(L) 13.7 - 16.5 g/dL [facility] Hematocrit 33.1(L) 40.5 - 48.5 % [facility] Mean Cell Volume 92.5 82.9 - 93.1 fL [facility] Mean Cell Hemoglobin 30.4 27.5 - 32.1 pg [facility] Mean Cell Hemoglobin Concentration 32.9 32.0 - 35.7 g/dL [facility] Platelet 165 145 - 357 x10(3)/mc L [facility] RDW Standard Deviation 53.2(H) 36.0 - 45.0 fL [facility] RDW coefficient of variation 15.7(H) 11.4 - 13.8 % [facility] Mean Platelet Volume 12.1 7.6 - 12.9 fL [facility] NRBC% auto 0.0 % [facility] NRBC Absolute 0.000 0.000 - 0.000 x10(3)/mc L [facility] Blood 05/12/2024 4:45 AM EDT 05/12/2024 5:06 AM EDT Narrative Resulting Agency Comment Spec In Lab Carlotta Davis MD HEMATOLOGY OR DERABLES Performing Organization Address [facility] Co de Phone Number [facility] [place] [address] * Magnesium (05/12/2024 4:45 AM EDT) Magnesium 1.07 0.69 - 1.07 mmol/L [facility] Blood 05/12/2024 4:45 AM EDT 05/12/2024 5:06 AM EDT Narrative Resulting Agency Comment Spec In Lab Mary De La Fuente MD CHEMISTRY ORDERABL ES Performing Organization Address [facility] Co de Phone Number [facility] [place] [address] * Phosphorus (05/12/2024 4:45 AM EDT) Phosphorus 2.7 2.5 - 4.5 mg/dL [facility] Blood 05/12/2024 4:45 AM EDT 05/12/2024 5:06 AM EDT Narrative Resulting Agency Comment Spec In Lab Mary De La Fuente MD CHEMISTRY ORDERABL ES [facility] [place] [address] * (ABNORMAL) Basic Metabolic Panel (non-fasting) (05/12/2024 4:45 AM EDT) Glucose 156 65 - 199 mg/dL [facility] Comment:Diabetes: >=200 mg/d L plus symptoms Blood Urea Nitrogen 72(H) 10 - 20 mg/dL [facility] Creatinine 2.03(H) 0.80 - 1.50 mg/dL [facility] Sodium 135 135 - 145 mmol/L [facility] Potassium 4.5 3.5 - 5.0 mmol/L [facility] Comment: Please note: ??Patients with WBC >100,000 may have falsely elevated Potassium levels. ??For accurate Potassium quantification in these patients send serum separator tube (gold top) for subsequent determinations. ??Contact the Clinical Chemistry Laboratory if there are any questions. Chloride 101 98 - 107 mmol/L [facility] Carbon Dioxide 24 22 - 31 mmol/L [facility] Anion Gap 10 5 - 15 mmol/L [facility] Calcium 8.4(L) 8.5 - 10.5 mg/dL [facility] Est Glomerular Filtration Rate 35(L) >=60 mL/min/1. 73 m?? [facility] Comment: This patient's estimated GFR [...] MD CHEMISTRY ORDERABL ES Performing Organization Address City/[facility] Co de Phone Number [facility] [place] [address] * ANGY, legs, multiple levels (05/12/2024 3:22 AM EDT) VB Text Report Department: Vascular Surgery Lab Patient: [id number] (JOSSY SHANKS) CPT: 08096 Referring Physician: THO DICKSON ?? Phone: Indications: [...] Glucose, POC 201(H) 65 - 199 mg/dL [facility] Comment: Supplemental ranges: <140 mg/dL before meals <180 mg/dL all other times of the day Blood 05/11/2024 8:14 PM EDT 05/11/2024 8:14 PM EDT Treva Diaz MD POINT OF CARE TEST ORDERABLES [facility] [place] [address] * Vancomycin Level, Random (05/11/2024 8:10 PM EDT) Vancomycin, Random 21.7 mg/L [facility] Comment: This level is for determination of the patient's vancomycin kmic-iybyh-cre-curve (AUC) value. Contact the inpatient pharmacy for interpretation. Blood 05/11/2024 8:10 PM EDT 05/11/2024 8:32 PM EDT Treva Diaz MD CHEMISTRY ORDERABL ES Performing Organization Address [facility]/ZIP Co de Phone Number [facility] [place] [address] * POCT Glucose (05/11/2024 4:34 PM EDT) Glucose, POC 197 65 - 199 mg/dL [facility] Comment: Supplemental ranges: <140 mg/dL before meals <180 mg/dL all other times of the day Blood 05/11/2024 4:34 PM EDT 05/11/2024 4:34 PM EDT Treva Diaz MD POINT OF CARE TEST ORDERABLES Performing Organization Address City/[facility]/ZIP Co de Phone Number [facility] [place] [address] * (ABNORMAL) POCT Glucose (05/11/2024 11:47 AM EDT) Glucose, POC 255(H) 65 - 199 mg/dL [facility] Comment: Supplemental ranges: <140 mg/dL before meals <180 mg/dL all other times of the day Blood 05/11/2024 11:4 7 AM EDT 05/11/2024 11:47 AM EDT Treva Diaz MD POINT OF CARE TEST ORDERABLES [facility] [place] [address] * (ABNORMAL) POCT Glucose (05/11/2024 6:57 AM EDT) Glucose, POC 200(H) 65 - 199 mg/dL [facility] Comment: Supplemental ranges: <140 mg/dL before meals <180 mg/dL all other times of the day Blood 05/11/2024 6:57 AM EDT 05/11/2024 6:57 AM EDT Treva Diaz MD POINT OF CARE TEST ORDERABLES [facility] [place] [address] * (ABNORMAL) Differential, Automated (05/11/2024 2:00 AM EDT) Neutrophil % 85.8 % [facility] Neutrophil Absolute 22.16(H) 1.70 - 6.10 x10(3)/mc L [facility] Lymph % 1.5 % [facility] Lymphocytes Abs 0.4(L) 0.9 - 3.2 x10(3)/mc L [facility] Monocyte % 4.9 % [facility] Monocyte Abs 1.3(H) 0.3 - 0.9 x10(3)/mc L [facility] Eos % 0.0 % [facility] Eosinophils Abs 0.0 0.0 - 0.4 x10(3)/ L [facility] Basophil % 0.1 % [facility] Baso Absolute 0.0 0.0 - 0.1 x10(3)/ L [facility] Immature Gran % 7.70 % [facility] Comment: Immature granulocytes(IG's)percentage and absolute count will include metamyelocytes, myelocytes, and promyelocytes. Blood smears from CBCs yielding IG's will be scanned manually for concordance. If this scan disagrees with the automated IG or if promyelocytes are noted, a manual differential will be performed. Immature Gran Absolute 1.98(H) 0.00 - 0.04 x10(3)/[facility] Blood 05/11/2024 2:00 AM EDT 05/11/2024 2:07 AM EDT Narrative Resulting Agency Comment Spec In Lab Carlotta Davis MD HEMATOLOGY OR DERABLES [facility] [place] [address] * (ABNORMAL) Hemogram (05/11/2024 2:00 AM EDT) White Blood Cell 25.8(H) 4.0 - 9.5 x10(3)/ L [facility] Red Blood Cell 3.64(L) 4.58 - 5.54 x10(6)/mc L [facility] Hemoglobin 10.9(L) 13.7 - 16.5 g/dL [facility] Hematocrit 32.5(L) 40.5 - 48.5 % [facility] Mean Cell Volume 89.3 82.9 - 93.1 fL [facility] Mean Cell Hemoglobin 29.9 27.5 - 32.1 pg [facility] Mean Cell Hemoglobin Concentration 33.5 32.0 - 35.7 g/dL [facility] Platelet 141(L) 145 - 357 x10(3)/mc L [facility] RDW Standard Deviation 51.2(H) 36.0 - 45.0 fL [facility] RDW coefficient of variation 15.6(H) 11.4 - 13.8 % [facility] Mean Platelet Volume 12.9 7.6 - 12.9 fL [facility] NRBC% auto 0.0 % [facility] NRBC Absolute 0.000 0.000 - 0.000 x10(3)/mc L [facility] Blood 05/11/2024 2:00 AM EDT 05/11/2024 2:07 AM EDT Narrative Resulting Agency Comment Spec In Lab Carlotta Davis MD HEMATOLOGY OR DERABLES Performing Organization Address City/[facility]/ZIP Co de Phone Number [facility] [place] [address] * Magnesium (05/11/2024 2:00 AM EDT) Magnesium 1.01 0.69 - 1.07 mmol/L [facility] Blood 05/11/2024 2:00 AM EDT 05/11/2024 2:07 AM EDT Narrative Resulting Agency Comment Spec In Lab Mary De La Fuente MD CHEMISTRY ORDERABL ES Performing Organization Address City/[facility]/ZIP Co de Phone Number [facility] [place] [address] * Phosphorus (05/11/2024 2:00 AM EDT) Phosphorus 4.0 2.5 - 4.5 mg/dL [facility] Blood 05/11/2024 2:00 AM EDT 05/11/2024 2:07 AM EDT Narrative Resulting Agency Comment Spec In Lab Mary De La Fuente MD CHEMISTRY ORDERABL ES [facility] [place] [address] * (ABNORMAL) Basic Metabolic Panel (non-fasting) (05/11/2024 2:00 AM EDT) Glucose 212(H) 65 - 199 mg/dL [facility] Comment:Diabetes: >=200 mg/d L plus symptoms Blood Urea Nitrogen 72(H) 10 - 20 mg/dL [facility] Creatinine 2.58(H) 0.80 - 1.50 mg/dL [facility] Comment:result rechecked-HN Sodium 136 135 - 145 mmol/L [facility] Potassium 4.7 3.5 - 5.0 mmol/L [facility] Comment: Please note: ??Patients with WBC >100,000 may have falsely elevated Potassium levels. ??For accurate Potassium quantification in these patients send serum separator tube (gold top) for subsequent determinations. ??Contact the Clinical Chemistry Laboratory if there are any questions. Chloride 100 98 - 107 mmol/L [facility] Carbon Dioxide 24 22 - 31 mmol/L [facility] Anion Gap 12 5 - 15 mmol/L [facility] Calcium 8.3(L) 8.5 - 10.5 mg/dL [facility] Est Glomerular Filtration Rate 26(L) >=60 mL/min/1. 73 m?? [facility] Comment: This patient's estimated GFR [...] MD CHEMISTRY ORDERABL ES Performing Organization Address [facility] de Phone Number [facility] [place] [address] * Vancomycin Level, Random (05/11/2024 2:00 AM EDT) Vancomycin, Random 21.4 mg/L [facility] Comment: This level is for determination of the patient's vancomycin ijxv-qdmkw-lio-curve (AUC) value. Contact the inpatient pharmacy for interpretation. Blood 05/11/2024 2:00 AM EDT 05/11/2024 2:07 AM EDT Mary De La Fuente MD CHEMISTRY ORDERABL ES Performing Organization Address [facility] Phone Number [facility] [place] [address] * (ABNORMAL) POCT Glucose (05/10/2024 11:40 PM EDT) Glucose, POC 230(H) 65 - 199 mg/dL [facility] Comment: Supplemental ranges: <140 mg/dL before meals <180 mg/dL all other times of the day Blood 05/10/2024 11:4 0 PM EDT 05/10/2024 11:40 PM EDT Treva Diaz MD POINT OF CARE TEST ORDERABLES Performing Organization Address [facility] Co de Phone Number [facility] [place] [address] * POCT Glucose (05/10/2024 4:09 PM EDT) Glucose, POC 189 65 - 199 mg/dL [facility] Comment: Supplemental ranges: <140 mg/dL before meals <180 mg/dL all other times of the day Blood 05/10/2024 4:09 PM EDT 05/10/2024 4:09 PM EDT Treva Diaz MD POINT OF CARE TEST ORDERABLES Performing Organization Address City/[facility]/ZIP Co de Phone Number [facility] [place] [address] * POCT Glucose (05/10/2024 12:11 PM EDT) Glucose, POC 185 65 - 199 mg/dL [facility] Comment: Supplemental ranges: <140 mg/dL before meals <180 mg/dL all other times of the day Blood 05/10/2024 12:1 1 PM EDT 05/10/2024 12:11 PM EDT Mary De La Fuente MD POINT OF CARE TEST ORDERABLES Performing Organization Address [facility] Co de Phone Number [facility] [place] [address] * Vancomycin Level, Random (05/10/2024 12:00 PM EDT) Vancomycin, Random 15.5 mg/L [facility] Comment: This level is for determination of the patient's vancomycin nylk-fckdw-yoe-curve (AUC) value. Contact the inpatient pharmacy for interpretation. Blood 05/10/2024 12:0 0 PM EDT 05/10/2024 12:21 PM EDT Tho Dickson MD CHEMISTRY ORDERABLES Performing Organization Address City/[facility]/ZIP Co de Phone Number [facility] [place] [address] * POCT Glucose (05/10/2024 8:09 AM EDT) Glucose, POC 195 65 - 199 mg/dL [facility] Comment: Supplemental ranges: <140 mg/dL before meals <180 mg/dL all other times of the day Blood 05/10/2024 8:09 AM EDT 05/10/2024 8:09 AM EDT Mary De La Fuente MD POINT OF CARE TEST ORDERABLES Performing Organization Address City/[facility]/ZIP Co de Phone Number [facility] [place] [address] * CK (05/10/2024 6:55 AM EDT) Creatine Kinase 58 0 - 200 unit/L [facility] Blood Venous Draw / Unknown 05/10/2024 6:55 AM EDT 05/10/2024 7:41 AM EDT Narrative Resulting Agency Comment Spec In Lab Emmanuel Corey DO CHEMISTRY ORDERABLES Performing Organization Address [facility] Co de Phone Number [facility] [place] [address] * (ABNORMAL) Phosphorus (05/10/2024 6:55 AM EDT) Phosphorus 5.1(H) 2.5 - 4.5 mg/dL [facility] Blood 05/10/2024 6:55 AM EDT 05/10/2024 6:59 AM EDT Narrative Resulting Agency Comment Spec In Lab Tho Dickson MD CHEMISTRY ORDERABLES Performing Organization Address [facility]/ZIP Co de Phone Number [facility] [place] [address] * (ABNORMAL) Basic Metabolic Panel (non-fasting) (05/10/2024 6:55 AM EDT) Glucose 193 65 - 199 mg/dL [facility] Comment:Diabetes: >=200 mg/d L plus symptoms Blood Urea Nitrogen 69(H) 10 - 20 mg/dL [facility] Creatinine 3.75(H) 0.80 - 1.50 mg/dL [facility] Sodium 128(L) 135 - 145 mmol/L [facility] Potassium 5.0 3.5 - 5.0 mmol/L [facility] Comment: Please note: ??Patients with WBC >100,000 may have falsely elevated Potassium levels. ??For accurate Potassium quantification in these patients send serum separator tube (gold top) for subsequent determinations. ??Contact the Clinical Chemistry Laboratory if there are any questions. Chloride 93(L) 98 - 107 mmol/L [facility] Carbon Dioxide 23 22 - 31 mmol/L [facility] Anion [place] 12 5 - 15 mmol/L [facility] Calcium 8.6 8.5 - 10.5 mg/dL [facility] Est Glomerular Filtration Rate 17(L) >=60 mL/min/1. 73 m?? [facility] Comment: This patient's estimated GFR [...] In Lab Tho Dickson MD CHEMISTRY ORDERABLES [facility] [place] [address] * Lactate, whole blood, send to lab ([facility] (05/10/2024 6:55 AM EDT) Lactate WB 1.7 0.5 - 2.2 mmol/L [facility] Blood 05/10/2024 6:55 AM EDT 05/10/2024 7:00 AM EDT Narrative Resulting Agency Comment Spec In Lab Tho Dickson MD CHEMISTRY ORDERABLES [facility] [place] [address] * MRI Foot wwo Contrast Right (05/10/2024 5:51 AM EDT) WORKSTATION ID [id number] RAD Anatomical Region Laterality Modality Foot Right [...] have questions please contact the health healthcare advisory services manager that requested your imaging first. ? [...] who have questions please contactthe health healthcare advisory services manager that requested your imaging first. Electronically signed by: Trinidad Mota MD, [facility]([phone]), at 05/10/2024 12:56 PM Tho Dickson MD [facility] MRI ORDERABLES * Creatinine, urine, random (05/10/2024 4:15 AM EDT) Creatinine, Urine 106 mg/dL [facility] Urine 05/10/2024 4:15 AM EDT 05/10/2024 4:23 AM EDT Narrative Resulting Agency Comment Spec In Lab Tho Dickson MD URINE ORDERABLES Performing Organization Address [facility] Co de Phone Number [facility] [place] [address] * Sodium, urine, random (05/10/2024 4:15 AM EDT) Sodium, Urine <20 mmol/L [facility] Urine 05/10/2024 4:15 AM EDT 05/10/2024 4:23 AM EDT Narrative Resulting Agency Comment Spec In Lab Tho Dickson MD URINE ORDERABLES Performing Organization Address [facility]/ZIP Co de Phone Number [facility] [place] [address] * Urea nitrogen, urine, random (05/10/2024 4:15 AM EDT) Urea Nitrogen, Urine 580 mg/dL [facility] Urine 05/10/2024 4:15 AM EDT 05/10/2024 4:23 AM EDT Narrative Resulting Agency Comment Spec In Lab Tho Dickson MD URINE ORDERABLES Performing Organization Address [facility] Co de Phone Number [facility] [place] [address] * (ABNORMAL) Skin/Superficial Wound Culture Toe (05/10/2024 2:56 AM EDT) Skin/Superfic ial Wound Culture Rare mixed bacterial morphotypes suggestive of normal cutaneous armani including Rare Gram Negative Rods (A) [facility] Gram Stain Many Neutrophils seen Few Gram Positive Cocci seen (A) [facility] Organism Gram Negative Rods(A) [facility] Organism Gram Positive Cocci(A) [facility] Superficial Wound TOE STRUCTURE / Unknown 05/10/2024 2:56 AM EDT 05/10/2024 5:18 AM EDT Comment:Right toe wound Narrative Resulting Agency Comment Spec In Lab Tho Dickson MD MICROBIOLOGY - GENER AL ORDERABLES Performing Organization Address [facility]/ZIP Co de Phone Number [facility] [place] [address] * (ABNORMAL) Urinalysis without microscopic (05/10/2024 2:42 AM EDT) Glucose, Urine Dipstick Negative Negative mg/dL [facility] Protein, Urine Dipstick 30(A) Negative mg/dL [facility] Bilirubin, Urine Dipstick Negative Negative mg/dL [facility] Comment: Clinical correlation required for positive Urine Bilirubin results as false positive may occur with some drugs and drug related products. If a false positive is suspected a serum total bilirubin should be considered if clinically indicated. Urobilinogen, Urine Dipstick Normal Normal mg/dL [facility] pH, Urn (dipstick) 5.5 5.0 - 8.0 [facility] Blood, Urine Dipstick Large(A) Negative mg/dL [facility] Ketone, Urine Dipstick Negative Negative mg/dL [facility] Nitrite, Urine Dipstick Negative Negative [facility] Leukocytes, Urine Dipstick Small(A) Negative [facility] Appearance, Urine Dipstick Cloudy(A) Clear [facility] Specific [place] Urine Automated 1.017 1.005 - 1.030 [facility] Color, Urine Dipstick [place](A) Yellow [facility] Urine 05/10/2024 2:42 AM EDT 05/10/2024 2:57 AM EDT Narrative Resulting Agency Comment Spec In Lab Tho Dickson MD URINE ORDERABLES [facility] [place] [address] * XR Chest One View (05/10/2024 2:37 AM EDT) WORKSTATION ID [id number] RAD Anatomical Region Laterality Modality Chest N/A Digital Radiogra phy Impressions 05/10/2024 3:27 AM EDT Bibasilar atelectasis. Thank you for letting us participate in the care of this patient. ??If you are a health care provider and have any questions regarding this report, please contact the number below. ??For patients who have questions please contact the health healthcare advisory services manager that requested your imaging first. ? Electronically signed by: Yenni Ca MD, [facility] ([phone]), at 05/10/2024 3:27 AM Narrative 05/10/2024 3:27 [...] who have questions please contactthe health healthcare advisory services manager that requested your imaging first. Electronically signed by: Yenni Ca MD, [facility]([phone]), at 05/10/2024 3:27 AM Tho Dickson MD IMG DX ORDERABLES * Blood culture (05/10/2024 2:32 AM EDT) Blood Culture No growth at 5 days. [facility] Blood STRUCTURE OF RIGHT HAND / Unknown 05/10/2024 2:32 AM EDT 05/10/2024 4:17 AM EDT Narrative Resulting Agency Comment Spec In Lab Tho Dickson MD MICROBIOLOGY - BLOOD ORDERABLES Performing Organization Address [facility] Co de Phone Number [facility] [place] [address] * (ABNORMAL) POCT Glucose (05/10/2024 2:30 AM EDT) Pathologist [facility] Glucose, POC 201(H) 65 - 199 mg/dL [facility] Comment: Supplemental ranges: <140 mg/dL before meals <180 mg/dL all other times of the day Blood 05/10/2024 2:30 AM EDT 05/10/2024 2:30 AM EDT Tho Dickson MD POINT OF CARE TEST O RDERABLES Performing Organization Address [facility] Co de Phone Number [facility] [place] [address] * Vancomycin Level, Random (05/10/2024 2:20 AM EDT) [facility] Vancomycin, Random 26.9 mg/L [facility] Comment: This level is for determination of the patient's vancomycin mcul-axilu-qza-curve (AUC) value. Contact the inpatient pharmacy for interpretation. Blood Venous Draw / Unknown 05/10/2024 2:20 AM EDT 05/10/2024 2:38 AM EDT Tho Dickson MD CHEMISTRY ORDERABLES Performing Organization Address [facility] Co de Phone Number [facility] [place] [id number] * Scan, Peripheral Blood (05/10/2024 2:20 AM EDT) Pathologist [facility] Plat estimate Normal [facility] RBC Morphology Abnormal [facility] Ovalocytes 1-5 /HPF [facility] [place] Cells 1-5 /HPF [facility] Plat, Giant Less than 1 /HPF [facility] Blood 05/10/2024 2:20 AM EDT 05/10/2024 2:36 AM EDT Narrative Resulting Agency Comment Spec In Lab Anita Camacho MD HEMATOLOGY ORDERABLE S [facility] [place] [address] * Type and Screen Validity (05/10/2024 2:20 AM EDT) Pathologist [facility] T&S only valid at [facility] Comment:This Type and Screen result is only valid at the [facility] Blood 05/10/2024 2:20 AM EDT 05/10/2024 2:49 AM EDT Narrative Resulting Agency Comment Spec In Lab Anita Camacho MD BLOOD BANK LAB ORDER ANGELIQUE Performing Organization Address City/[facility]/ZIP Co de Phone Number [facility] [place] [address] * ABORH Recheck Status (05/10/2024 2:20 AM EDT) ABORH Recheck Order Order Placed [facility] ABORH Type Recheck Completed [facility] Blood 05/10/2024 2:20 AM EDT 05/10/2024 2:49 AM EDT Narrative Resulting Agency Comment Spec In Lab Anita Camacho MD BLOOD BANK LAB ORDER ANGELIQUE [facility] [place] [address] * (ABNORMAL) Differential, Automated (05/10/2024 2:20 AM EDT) Neutrophil % 89.2 % [facility] Neutrophil Absolute 25.39(H) 1.70 - 6.10 x10(3)/ L [facility] Lymph % 1.2 % [facility] Lymphocytes Abs 0.4(L) 0.9 - 3.2 x10(3)/ L [facility] Monocyte % 2.9 % [facility] Monocyte Abs 0.8 0.3 - 0.9 x10(3)/[facility] Eos % 0.0 % [facility] Eosinophils Abs 0.0 0.0 - 0.4 x10(3)/[facility] Basophil % 0.2 % [facility] Baso Absolute 0.1 0.0 - 0.1 x10(3)/[facility] Immature Gran % 6.50 % [facility] Comment: Immature granulocytes(IG's)percentage and absolute count will include metamyelocytes, myelocytes, and promyelocytes. Blood smears from CBCs yielding IG's will be scanned manually for concordance. If this scan disagrees with the automated IG or if promyelocytes are noted, a manual differential will be performed. Immature Gran Absolute 1.85(H) 0.00 - 0.04 x10(3)/[facility] Blood 05/10/2024 2:20 AM EDT 05/10/2024 2:36 AM EDT Narrative Resulting Agency Comment Spec In Lab Anita Camacho MD HEMATOLOGY ORDERABLE S [facility] [place] [address] * (ABNORMAL) Hemogram (05/10/2024 2:20 AM EDT) White Blood Cell 28.5(H) 4.0 - 9.5 x10(3)/[facility] Red Blood Cell 3.83(L) 4.58 - 5.54 x10(6)/[facility] Hemoglobin 11.4(L) 13.7 - 16.5 g/dL [facility] Hematocrit 34.5(L) 40.5 - 48.5 % [facility] Mean Cell Volume 90.1 82.9 - 93.1 fL [facility] Mean Cell Hemoglobin 29.8 27.5 - 32.1 pg [facility] Mean Cell Hemoglobin Concentration 33.0 32.0 - 35.7 g/dL [facility] Platelet 135(L) 145 - 357 x10(3)/mc L [facility] RDW Standard Deviation 51.9(H) 36.0 - 45.0 fL [facility] RDW coefficient of variation 15.6(H) 11.4 - 13.8 % [facility] Mean Platelet Volume 12.8 7.6 - 12.9 fL [facility] NRBC% auto 0.0 % [facility] NRBC Absolute 0.000 0.000 - 0.000 x10(3)/mc L [facility] Blood 05/10/2024 2:20 AM EDT 05/10/2024 2:36 AM EDT Narrative Resulting Agency Comment Spec In Lab Anita Camacho MD HEMATOLOGY ORDERABLE S [facility] [place] [address] * (ABNORMAL) Hemoglobin A1c (05/10/2024 2:20 AM EDT) Hemoglobin A1c 5.9(H) 4.3 - 5.6 % [facility] Comment: Reference Range: 4.3 - [...] Mellitus, Diabetes Care 2013; 36: Suppl. 1, S97-02 Estimated Average Glucose See note mg/dL [facility] Comment: Estimated Average Glucose not appropriate for patients over 70 years of age. Blood 05/10/2024 2:20 AM EDT 05/10/2024 2:36 AM EDT Narrative Resulting Agency Comment Spec In Lab Tho Dickson MD CHEMISTRY ORDERABLES Performing Organization Address [facility] Co de Phone Number [facility] [address] * Hepatic Function Panel (05/10/2024 2:20 AM EDT) Protein, Total 7.6 6.1 - 8.0 g/dL [facility] Albumin 3.3 3.2 - 5.2 g/dL [facility] Aspartate Aminotransferase 21 0 - 39 unit/L [facility] Alanine Aminotransferase 19 0 - 55 unit/L [facility] Alkaline Phosphatase 42 40 - 130 unit/L [facility] Bilirubin, Total 0.5 0.2 - 1.3 mg/dL [facility] Bilirubin, Direct 0.2 0.0 - 0.3 mg/dL [facility] Blood 05/10/2024 2:20 AM EDT 05/10/2024 2:36 AM EDT Narrative Resulting Agency Comment Spec In Lab Tho Dickson MD CHEMISTRY ORDERABLES Performing Organization Address [facility] Co de Phone Number [facility] [place] [address] * (ABNORMAL) Phosphorus (05/10/2024 2:20 AM EDT) Phosphorus 4.6(H) 2.5 - 4.5 mg/dL [facility] Blood 05/10/2024 2:20 AM EDT 05/10/2024 2:36 AM EDT Narrative Resulting Agency Comment Spec In Lab Tho Dickson MD CHEMISTRY ORDERABLES Performing Organization Address City/[facility]/ZIP Co de Phone Number [facility] [place] [address] * Magnesium (05/10/2024 2:20 AM EDT) Magnesium 0.85 0.69 - 1.07 mmol/L [facility] Blood 05/10/2024 2:20 AM EDT 05/10/2024 2:36 AM EDT Narrative Resulting Agency Comment Spec In Lab Tho Dickson MD CHEMISTRY ORDERABLES Performing Organization Address [facility] Co de Phone Number [facility] [place] [address] * (ABNORMAL) Basic Metabolic Panel (non-fasting) (05/10/2024 2:20 AM EDT) Pathologist [facility] Glucose 196 65 - 199 mg/dL [facility] Comment:Diabetes: >=200 mg/d L plus symptoms Blood Urea Nitrogen 71(H) 10 - 20 mg/dL [facility] Creatinine 3.94(H) 0.80 - 1.50 mg/dL [facility] Sodium 129(L) 135 - 145 mmol/L [facility] Potassium 5.3(H) 3.5 - 5.0 mmol/L [facility] Comment: Please note: ??Patients with WBC >100,000 may have falsely elevated Potassium levels. ??For accurate Potassium quantification in these patients send serum separator tube (gold top) for subsequent determinations. ??Contact the Clinical Chemistry Laboratory if there are any questions. Chloride 93(L) 98 - 107 mmol/L [facility] Carbon Dioxide 24 22 - 31 mmol/L [facility] Anion Gap 12 5 - 15 mmol/L [facility] Calcium 8.5 8.5 - 10.5 mg/dL [facility] Est Glomerular Filtration Rate 16(L) >=60 mL/min/1. 73 m?? [facility] Comment: This patient's estimated GFR [...] Dickson MD CHEMISTRY ORDERABLES Performing Organization Address [facility] Phone Number [facility] [place] [address] * (ABNORMAL) Prothrombin Time (05/10/2024 2:20 AM EDT) Prothrombin Time 27.9(H) 9.4 - 12.5 sec [facility] International Normalization Ratio 2.5 [facility] Comment: An INR <2.0 indicates [...] MD HEMATOLOGY ORDERABLE S Performing Organization Address [facility] Co de Phone Number [facility] [place] [address] * Type and screen ([facility]ARA) (05/10/2024 2:20 AM EDT) ABORH Type O POSITIVE [facility] Patient BB History Not Found [facility] Expires at [id number] on: 05-13-2024 [facility] Ab Screen Interp Negative [facility] Blood 05/10/2024 2:20 AM EDT 05/10/2024 2:20 AM EDT Narrative [facility] - 05/10/2024 2:20 AM EDT This Type and Screen result is only valid at the [facility] Resulting Agency Comment Spec In Lab Tho Dickson MD BLOOD BANK LAB ORDER ANGELIQUE [facility] [place] [address] * (ABNORMAL) Lactate, whole blood, send to lab ([facility]) (05/10/2024 2:20 AM EDT) Lactate WB 2.3(H) 0.5 - 2.2 mmol/L [facility] Blood 05/10/2024 2:20 AM EDT 05/10/2024 2:36 AM EDT Narrative Resulting Agency Comment Spec In Lab Tho Dickson MD CHEMISTRY ORDERABLES Performing Organization Address City/[facility]/ZIP Co de Phone Number [facility] [place] [address] documented in this encounter Visit Diagnoses Not [...] HOURS, First dose (after last modification) on [place] 05/18/24 at 1430, Until Discontinued, Routine 0258 [...] Reason: Transfer to a Procedural area)175 ([facility] Unhold - Provider: Admin Adt) [...] Sun05/23/24 at 1815, Pain, Routine 1318 ([facility] Hold - Provider: Admin Adt [...] documented as of this encounter Care Teams Golf Tournament Consultant Relationship 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
--- OUTSIDE RECORDS SUMMARY | 2024-06-06 16:32 | XMS_ITS | Encounter Summary ---
[place] [address] Care Team Providers Care Wharfmaster Name Role Phone None Primary Care Provider Unavailabl e Reason for Visit * Auth/Cert (Routine) Specialty Diagnoses / Procedures Referred By Contac t Referred To Contact Diagnoses Septic shock septiic shock Procedures ER Tho Aquino MD [facility] [place] [address] [facility] Referral ID Status Reason Start Date Expiration Date Visits Re quested Visits Authorized [id number] 1 1 Encounter Details Date Type Department Care Team (Late st Contact Info) Description 05/14/2024 10:37 AM EDT Anesthesia Event [place] [id number] Gertrudis Kimball MD [facility] [place] [address] Kimberlee Fontenot MD [facility] [place] [address] Anesthesia Record Procedure Summary Procedure Name Responsible [...] Procedure Summary Date: 05/14/24 Room / Location: [facility] OR [address] [address] MAIN OR Anesthesia Start: 1037 Anesthesia Stop: 1219 Procedure: AMPUTATION, TRANSMETATARSAL TOE, ONE TOE (WRVU 6.64) (Right: Foot) Diagnosis: (right second toe osteomyelitis) Surgeons: Elkin Garcia MD Responsible Provider: Gertrudis Kimball MD Anesthesia Type: general ASA Status: 3 All Anesthesia Providers: Anesthesiologist: Gertrudis Kimball MD INSPECTOR ELECTROMECHANICAL: Fátima Garcia CRNA Vitals Value Taken Time BP 142/72 05/14/24 1415 Temp 36.4 ??C (97.5 ??F) 05/14/24 1415 Pulse 96 05/14/24 1427 Resp 21 05/14/24 1430 SpO2 96 % 05/14/24 1442 Pain Level 3 05/14/24 1430 Vitals shown include unfiled device data. Patient Location: PACU/[facility] Level of Consciousness: Conscious but Sleepy Pain [...] risks discussed with patient. Plan discussed with INSPECTOR ELECTROMECHANICAL. Anesthesia Screening documented in this encounter Plan of Treatment Upcoming Encounters Date Type Department Care Team (Late st Contact Info) Description 06/10/2024 10:30 AM EDT [place] [address] Elkin Garcia MD [facility] [place] [address] documented as of this encounter Visit Diagnoses [...] mg documented in this encounter Care Teams Wharfmaster Relationship 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
--- OUTSIDE RECORDS SUMMARY | 2024-06-06 16:32 | XMS_ITS | Encounter Summary ---
Author Organization [facility] [place] [address] Care Team Providers Care Prestidigitator Name Role Phone None Primary Care Provider [...] 10:30 AM EDT [place] [address] Elkin Garcia MD [facility] [address] [place] [address] documented as of this encounter Visit Diagnoses Not on filedocumented in this encounter Care Teams Prestidigitator Relationship 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
--- OUTSIDE RECORDS SUMMARY | 2024-06-06 16:34 | XMS_ITS | Encounter Summary ---
[place] [address] Care Team Providers Care Political Cartoonist Name Role Phone None Primary Care Provider Unavailabl e Reason for Visit * Reason Comments Low Back Pain Bilateral Hip Pain Bilateral Leg Pain Encounter Details Date Type Department Care Team (Late st Contact Info) Description 11/26/2017 2:20 PM EST Office [place] [address] Navjot Castillo MD [facility] [place] [address] Degenerative lumbar spinal stenosis Social History Tobacco [...] None Social history: The patient worked at [employer] until one year ago. He stopped working [...] SI joint. He can flex 70?? and [id number]??. Neurological exam: He walks with a normal [...] 10:30 AM EDT Office [place] [address] Elkin Garcia MD [facility] [address] [place] [address] documented as of this encounter Visit Diagnoses Diagnosis Degenerative lumbar spinal stenosis Spinal stenosis, lumbar region, without neurogenic claudication documented in this encounter Care Teams Political Cartoonist Relationship 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
--- OUTSIDE RECORDS SUMMARY | 2024-06-06 16:34 | XMS_ITS | Encounter Summary ---
[place] [address] Care Team Providers Care Lactation Nurse Name Role Phone None Primary Care Provider Unavailabl e Reason for Visit * Auth/Cert (Routine) Specialty Diagnoses / Procedures Referred By Contac t Referred To Contact Diagnoses Septic shock septiic shock Procedures ER Tho Aquino MD [facility] [place] [address] [facility] Referral ID Status Reason Start Date Expiration Date Visits Re quested Visits Authorized [id number] 1 1 Encounter Details Date Type Department Care Team (Late st Contact Info) Description 05/14/2024 10:00 AM EDT - 05/14/2024 11:24 AM EDT [place] [id number] Elkin Garcia MD [facility] [place] [address] AMPUTATION, TRANSMETATARSAL TOE, ONE TOE (WRVU 6.64) Social History Tobacco Use Types Packs/Day Years Used Date Smoking Tobacco: Former Cigarettes 14 0.6 S tarted: 2023 Smokeless Tobacco: Never Tobacco Cessation:Counseling Given: Not Answered Alcohol Use Standard Drinks/Week Comments Yes 0 (1 standard drink = 0.6 oz pur e alcohol) 3-4 PER [facility] Inpatient Questions Answer Date Recorded Does Anyone [...] Jossy Shanks Patient Age: 69 y.o. Language: Ghanaian Race: White Ethnicity: Not nor Admit date: [...] please contact your inpatient physician through the [facility] Louver Mortiser Operator . Issues afterhours and on weekends will [...] home oxygen, HFpEF, HTN who presented to [facility] for rt LE cellulitis, transferred to [facility] for septic shock. At end of March he dropped cylinder block on rt foot, bleeding and painful. Kept bandaged and sock on it, same sock on it for the last week, reports sock became fused to wound. Denies paresthesia. Wasable to walk w/out difficulty. In last several days erythema and edema spread upper Rt LE to knee. Fevers & chills for last 24hrs. [place] lightheaded, weak, & couldn't get out of [...] prior to OSH departure. On arrival to [facility]: HR 96, o2 sat mid 90s on [...] care, the same day as transfer to [facility]. On the general medicine floor, he was [...] border dressing. (Melgisorb Ag 6x6 PS # [id number]) (Melgisorb Ag 4x4 PS # [id number]) Sacrum/ischium: open to air, utilize Z-guard if [...] 05/10/2024 2:37 AM) Result Value WORKSTATION ID [id number] Impression Bibasilar atelectasis. Thank you for letting us participate in the care of this patient. If you are a health care provider and have any questions regarding this report, please contact the number below. For patients who have questions please contact the health morning caregiver that requested your imaging first. Foot wwo Contrast Right (Exam End: 05/10/2024 5:51 AM) Result Value WORKSTATION ID [id number] Impression 1. Soft tissue irregularity of the [...] who have questions please contact the health morning caregiver that requested your imaging first. Retroperitoneal Complete (Exam End: 05/20/2024 10:36 AM) Result Value WORKSTATION ID [id number] Impression 1. Very limited exam secondary to [...] who have questions, please contact the health morning caregiver that requested your imaging first. Teofilo Ruiz, Staff Physician Electronically Signed Final Report 05/20/2024 11:36 am Pending Studies and Lab Data: Discharge Conditions/Prognosis: s/p Left 2nd toe amputation, recovering, requiring rehab. Back to baseline. Discharge to: [facility] Updated Allergies/ADRs: No Known Allergies Immunizations [...] Center 06/03/2024 2:00 PM Lu Mcfarland APRN [facility] ID 5C [facility] 06/05/2024 4:00 PM Elkin Garcia MD [facility] ORTH 3C [facility] Your Discharge Medication List Your Medications New [...] as much as possible. Call your doctor ([phone]) if you develop: Fever greater than 100.5 Severe nausea or vomiting Increasing pain that is not controlled by pain medications Increasing redness, swelling, or drainage from incisions Change in sensation FOLLOW-UP APPOINTMENTS: 1. You will have follow-up appointments at [facility] as indicated below in Future Appointment and Orders. 2. You will need to have x-rays prior to your follow-up appointment listed below. Please come to Radiology, desk 3T, 1 hour BEFORE that appointment for these x-rays. Future Appointments Date Time Provider Department Center 06/03/2024 2:00 PM Lu Mcfarland APRN [facility] ID 5C [facility] 06/05/2024 4:00 PM Elkin Garcia MD [facility] ORTH 3C [facility] If you have questions or concerns: Sunday [...] the day after the procedure, use an qpgg-ifg-dzgejob spray to numb your throat. Sucking on [...] occurs, please contact your Doctor. Please call [phone] before 8pm Mon-Fri with problems, questions or concerns. If you call after 8pm or on weekends, call the Hospital at [phone] and ask to speak to the Plant Worker compensation analyst and the materials handling equipment operator will contact that person for you. When should you call for help? Call [phone] anytime you think you may need emergency [...] any problems. Where can you learn more? [facility] View your After Visit Summary and more online at [email or web address] If you would like to provide feedback about your hospital experience, please call the Office of Patient and Family Relations at . If you have received this After Visit Summary in error, please immediately return it in person to the department, or notify the [facility] Privacy Office by calling toll free at between the hours of 8AM and 5PM to arrange for our retrieval of the documents at no cost to you. Content Version: 12.2 ?? 7908-9547 [employer]. Care instructions adapted under license by [facility]. If you have questions about a medical condition or this instruction, always ask your healthcare professional. [employer] disclaims any warranty or liability for your [...] is during regular working hours, please call [phone]. If it is after 5 pm or a weekend or holiday, call [phone] and ask for the Bowl Topper compensation analyst for Interventional Radiology. You have received [...] PM Lu Mcfarland APRN Infectious Disease at [facility] Arrive at: Decision Support Analyst Area 5C [phone] 06/05/2024 4:00 PM Elkin Garcia MD Orthopaedics at [facility] Arrive at: Decision Support Analyst Area 3C [phone] Future Orders Complete By Expires OPAT: Order / Recommendation for Post Discharge IV Antibiotic Management [KET579 CPT(R)] As directed Process Instructions: If no progress note charted, please enter Clinical details in comments. Scheduling Instructions: Comments: - If this order was signed greater than 72 hours prior to [facility] discharge, please call to confirm the accuracy of this order. Please Fax all results to: OPAT Program Infectious Disease Section [facility] [place], [place] [address] FAX: - After hours, please contact the Infectious Disease Physician compensation analyst at . - Line care instructions - see flush/heparin orders. Facilities may follow organizational policies/practices regarding heparin. - FDC for medication administration/cabinetmaker supervisor and catheter care/maintenance authorized. HD Line [...] every Sunday fax results to OPAT at [phone]. Please draw labs off PICC line. Please see OPAT order for lab draw details. Please RN visit for IV ABX teaching and ongoing assessment. Assisted for Medication Administration/Hookup and catheter care/maintenance: - [...] 05/20/2024 11:36 am) PATIENT INFO: ID #: [id number].: [id number] (69 yrs)(M) Name: JOSSY SHANKS Visit Date: 05/20/2024 10:34 am PERFORMED BY: Attending: Teofilo Ruiz MD Resident: Trinidad Light MD Performed By: Lulu Shin RDMS Referred By: SABA SPEARS Location: [place] SERVICE(S) PROVIDED: URETRO - Retroperitoneal Complete - [id number] INDICATIONS: CKD, increase BUN TECHNIQUE/SCAN QUALITY: Scan [...] patients whohave questions, please contact the health morning caregiver that requested your imaging first. Teofilo Ruiz, Staff Physician Electronically Signed Final Report 05/20/2024 11:36 am My clinical question: Patient to establish for CKD management Do not type below here [id number] Questions: My question or request is: See comment Provider Contact Information: None None None Discharge References/Attachments Low Phosphorus Foods: General Info (Ghanaian) Low Potassium Foods: General Info (Ghanaian) documented in this encounter Discharge Instructions * [...] the day after the procedure, use an apqy-pvy-wglgdxb spray to numb your throat. Sucking on [...] occurs, please contact your Doctor. Please call [phone] before 8pm Mon-Fri with problems, questions or concerns. If you call after 8pm or on weekends, call the Hospital at [phone] and ask to speak to the Plant Worker compensation analyst and the materials handling equipment operator will contact that person for you. [...] any problems. Where can you learn more? [facility] View your After Visit Summary and more online at [email or web address] If you would like to provide feedback about your hospital experience, please call the Office of Patient and Family Relations at . If you have received this After Visit Summary in error, please immediately return it in person to the department, or notify the [facility] Privacy Office by calling toll free at between the hours of 8AM and 5PM to arrange for our retrieval of the documents at no cost to you. Content Version: 12.2 ?? 4199-8098 [employer]. Care instructions adapted under license by [facility]. If you have questions about a medical condition or this instruction, always ask your healthcare professional. [employer] disclaims any warranty or liability for your [...] is during regular working hours, please call [phone]. If it is after 5 pm or a weekend or holiday, call [phone] and ask for the Bowl Topper compensation analyst for Interventional Radiology. You have received [...] Center 06/03/2024 2:00 PM Lu Mcfarland APRN [facility] ID 5C [facility] 06/05/2024 4:00 PM Elkin Garcia MD [facility] ORTH 3C [facility] Your Discharge Medication List Your Medications New [...] as much as possible. Call your doctor ([phone]) if you develop: Fever greater than 100.5 Severe nausea or vomiting Increasing pain that is not controlled by pain medications Increasing redness, swelling, or drainage from incisions Change in sensation FOLLOW-UP APPOINTMENTS: 1. You will have follow-up appointments at [facility] as indicated below in Future Appointment and Orders. 2. You will need to have x-rays prior to your follow-up appointment listed below. Please come to Radiology, desk 3T, 1 hour BEFORE that appointment for these x-rays. Future Appointments Date Time Provider Department Center 06/03/2024 2:00 PM Lu Mcfarland APRN [facility] ID 5C [facility] 06/05/2024 4:00 PM Elkin Garcia MD [facility] ORTH 3C [facility] If you have questions or concerns: Sunday through Sunday, 8 AM - 5 PM, please call Dr. Saba Spears MD's office at . If it is after 5 PM, the weekend, or holidays, please call and ask to speak with theOrthopedic resident on-call. * Attachments The following attachments cannot be sent through Care Everywhere. * Low Phosphorus Foods: General Info (Ghanaian) * Low Potassium Foods: General Info (Ghanaian) documented in this encounter Medications at Time [...] spent >30 minutes (Day of Discharge Code 57019) involved in the final examination of the patient, discussion of the hospital stay, instructions for continuing care to all relevant caregivers, and preparation of discharge records, prescriptions and referral forms. Plans Discharge to [facility] rehab Follow-up scheduled with ID, ortho, provider at [facility] Please see the Discharge Summary for complete details of any medication changes and additional plans. * Yg Jaffe - 05/23/2024 2:44 PM EDT Office of Care Management(OCM)/Fire Suppression Captain(RS) Patient Name: Jossy Shanks : 1955 Patient has been offered a SNF bed at [phone]. [facility] arranged for a BLS transport at 1530. Ambulance will need: Medicare ambulance form completed and signed (MD or Operations General Agent) Copy of patient demographics [place] or [place] Out of Hospital DNR/DNI order, if active No MD to MD report necessary. Please call Nursing Report to , ask for pbx inspector. Info to accompany patient: Narcotic Prescriptions Copies of Medication Administration Records and IV sheets for past two weeks. Plan: Fire Suppression Captain will be available to the patient and Operations General Agent for further assistance. Patient to discharge to: [facility] [address] [place] [address] Yg Jaffe Fire Suppression Captain * Shirley Samuel RN - 05/23/2024 12:05 PM EDT Physician Certification Statement for Non-Emergency Ambulance Services Section I - General Information Jossy Spivey Rimma 1955 Medicare Number: n/a Transport Date: 05/23/2024 (PCS is valid for round trips on this date and for all repetitive trips in the 60-day range as noted below.) Origin: [facility] Destination: [facility] Is the patient's [...] van (i.e. seated during transport, without medical laboratory technical officer or monitoring?): No 4) In addition to [...] the Centers of Medicare and Medicaid Services ([facility]) to support the determination of [...] who have questions, please contact the health morning caregiver that requested your imaging first. Teofilo Ruiz, [...] who have questions please contact the health morning caregiver that requested your imaging first. Chest One View Final Result Bibasilar atelectasis. Thank you for letting us participate in the care of this patient. If you are a health care provider and have any questions regarding this report, please contact the number below. For patients who have questions please contact the health morning caregiver that requested your imaging first. SCOPY: Reports [...] with them as documented. Tl Steele MD [facility] Gastroenterology * Irene Bravo RN - 05/22/2024 [...] Zhao RN - 05/22/2024 12:47 PM EDT Hygiene Teacher spoke with JACKIE Nuñez from Endo regarding [...] APRN, Infectious Disease 05/22/2024 9:00 AM * Miahela Galvan MD - 05/22/2024 6:57 AM EDT [facility] Medicine - Red Team Inpatient Progress Note [...] with PT - hoping to go to [facility] today Meds: pantoprazole 40 mg Intravenous BID [...] shoe, c/w pt - Bed ready at [facility] #IDDM Home regiment: 1.2mg liraglutide qd, [...] upcoming EGD, and availability of bed at [facility]. -ordered T&S in case continues to drop [...] Medicine Hospital Medicine Red Team - Pager [phone] Associated attestation - Saba Spears MD - [...] will transfuse and monitor response. Dispo to [facility] for rehab pending Hgb stability and EGD. I have examined the patient myself and personally reviewed all studies. In addition, I certify thatI am a D-H credentialed attending provider with admitting privileges and that the patient meets or has met medical necessity to require an inpatient IPI level of care meeting a minimum of two midnights or is on the [facility] inpatient only procedure list (status C) due to: OM requiring IV abx * Lazaro Aaron, FOREIGN LAW CONSULTANT - 05/21/2024 4:05 PM EDT Physical Therapy [...] discharge to swing bed rehab facility vs [facility] facility once medically ready for hospital discharge. Pt will continue to benefit from skilled physical therapy while in the hospital in order to maximize independence and safety with functional mobility and achieve therapeutic goals. Discharge Recommendations: Based on current findings- swing bed rehabilitation facility, [facility] facility Discharge recommendation is based on the [...] with stable vital signs. Total Time: 34 (8202-1341) minutes. TAx2 Lazaro Aaron PTA Pager: [phone] Physical Therapy Inpatient Rehabilitation Department * Penny [...] decreased insight into deficits Vision: corrective lenses timers inspector Endurance: decreased activity tolerance Vitals: Stable on [...] with activities of daily living. Discharge Recommendation: [facility] facility, swing bed rehabilitation facility Equipment Recommendations: [...] 2-3 times/wk Total Minutes, Occupational Therapy: 40 ([facility] x3 ([phone])) Pager: [phone] Penny Rodriguez OT Occupational Therapy Rehabilitation Department [...] of : 1955 AGE: 69 y.o. Address: [address] [place], [place] [id number] (home) Mobile: Telephone Information: Referring Provider: Anna [...] Medicine Hospital Medicine Red Team - Pager [phone] Associated attestation - Saba Spears MD - [...] mid 7s. Appreciate GI consult. Dispo to [facility] pending Hgb and EGD. I have examined the patient myself and personally reviewed all studies. In addition, I certify thatI am a D-H credentialed attending provider with admitting privileges and that the patient meets or has met medical necessity to require an inpatient IPI level of care meeting a minimum of two midnights or is on the [facility] inpatient only procedure list (status [...] Galvan MD - 05/20/2024 6:20 AM EDT [facility] Medicine - Red Team Inpatient Progress Note [...] Pip-tazo and vanc c/w CTX Planning for [facility] central line, instead of PICC [...] Mihaela Galvan MD 05/20/2024 PGY-3, Internal Medicine [facility] Medicine Red Team - Pager [phone] Associated attestation - Saba Spears MD - [...] discharge to swing bed rehab facility vs [facility] facility once medically ready for hospital discharge. Pt will continue to benefit from skilled physical therapy while in the hospital in order to maximize independence and safety with functional mobility and achieve therapeutic goals. Discharge Recommendations: Based on current findings- [facility] bed rehabilitation facility, [facility] facility Discharge recommendation is based on the [...] Ho PT, Doctor of Physical Therapy Pager: [phone] Physical Therapy Inpatient Rehabilitation Department * Rebeca [...] decreased insight into deficits Vision: corrective lenses timers inspector Endurance: decreased activity tolerance Vitals: Stable on [...] with activities of daily living. Discharge Recommendation: [facility] facility, swing bed rehabilitation facility Equipment Recommendations: [...] times/wk Total Minutes, Occupational Therapy: 47 Pager: [phone] Rebeca Moeller OT Occupational Therapy Rehabilitation Department [...] Medicine Hospital Medicine Red Team - Pager [phone] Associated attestation - Saba Spears MD - [...] of two midnights or is on the [facility] inpatient only procedure list (status [...] for a hospital day 9 nutrition evaluation. Hygiene Teacher met with pt at bedside. Pt saidhe [...] unless consulted in the interim. Julissa Weathers Plater Hot Dip * Mihaela Galvan MD - 05/18/2024 7:20 AM EDT [facility] Medicine - [...] Mihaela Galvan MD 05/18/2024 PGY-3, Internal Medicine [facility] Medicine Red Team - Pager [phone] Associated attestation - Saba Spears MD - [...] of two midnights or is on the [facility] inpatient only procedure list (status [...] Harrison MD - 05/17/2024 6:28 AM EDT [facility] Red Team Inpatient Progress Note ID: Jossy [...] Oral BID dilTIAZem 60 mg Oral Q6H VALD PRN medications simethicone, ondansetron, oxyCODONE, melatonin, glucose [...] José Harrison MD 05/17/2024 PGY-3, Internal Medicine [facility] Medicine Red Team - Pager [phone] Associated attestation - Saba Spears MD - [...] 6.64) performed by Elkin Garcia MD at [facility] OR Active Non-Hospital Problems Diagnosis [...] admission to next 72h) Start Ordered 05/14/24 9249 Weight bearing status UNTIL DISCONTINUED Process Instructions: [...] [place] PT, Doctor of Physical Therapy Pager: [phone] Physical Therapy Inpatient Rehabilitation Department * Emmanuel [...] History: Housing: lives in a camper in [facility] Occupation: Former [employer], retired in 2016 [...] Component Value - Date/Time MRSA PCR Screen ([facility]/CGP/APD/NLH) [[id number]] Collected: 05/15/24 1615 Lab Status: Final result Specimen: Nasopharyngeal Swab Updated: 05/15/242012 MRSA Result Negative MRSA Interp -- Methicillin-resistant Staphylococcus aureus (MRSA) is NOT DETECTED The MRSA target DNA sequences (mec and SCC) were not detected within the acceptable ranges using the Xpert MRSA NxG on the GeneXpert Dx System ([employer]). This suggests the absence of MRSA in the patient specimen submitted for testing. This test is cleared by the U.S. Food and Drug Administration for clinical use and its performance characteristics have been verified by the [facility] at [facility]. This result does not rule out the presence of any other organisms. Rare false negative results may occur if MRSA is present at low concentrations with much higher concentrations of other organisms including MRSE or S. aureus with an empty SCC cassette. Comment: [VERIFIED DATE]05.15.24 Verified By:Lupe Jensen (Electronic Signature) Tissue Culture, Aerobic & Anaerobic Toe [[id number]] (Abnormal) Collected: 05/14/24 1133 Lab Status: Preliminary result Specimen: Toe Updated: 05/15/24 1212 Tissue culture [[id number]] (Abnormal) Collected: 05/14/24 1133 Lab Status: Preliminary result Specimen: Toe Updated: 05/15/24 1212 Tissue Culture No growth to date. Gram Stain -- Few Neutrophils seen Rare Gram Positive Cocci in pairs seen Results called to and read back by Dr. Mihaela Galvan 05/14/24 14:57:00 Organism Gram Positive Cocci in pairs Anaerobic Culture [[id number]] Collected: 05/14/24 1133 Lab Status: Preliminary result Specimen: Toe Updated: 05/15/24 1124 Anaerobic Culture No anaerobic organisms isolated to date Blood culture [[id number]] Collected: 05/10/24 0232 Lab Status: Final result Specimen: Blood from Hand, Right Updated: 05/15/24 0701 Blood Culture No growth at 5 days. Skin/Superficial Wound Culture Toe [[id number]] (Abnormal) Collected: 05/10/24 0256 Lab Status: Final [...] follow. Please page ID Red team (pager [phone]) with questions or concerns. Emmanuel Corey, DO Internal Medicine PGY-2 Pager: [phone] Epic Chat 05/16/2024 Associated attestation - Rodriguez [...] from the original note were not included. [facility] Medicine - Red Team Inpatient Progress Note [...] Intake/Output Summary (Last 24 hours) at 05/16/2024 0609 Last data filed at 05/16/2024 0355 Gross [...] Component Value - Date/Time MRSA PCR Screen ([facility]/CGP/APD/NLH) [[id number]] Collected: 05/15/24 1615 Lab Status: Final result Specimen: Nasopharyngeal Swab Updated: 05/15/242012 MRSA Result Negative MRSA Interp -- Methicillin-resistant Staphylococcus aureus (MRSA) is NOT DETECTED The MRSA target DNA sequences (mec and SCC) were not detected within the acceptable ranges using the Xpert MRSA NxG on the GeneXpert Dx System ([employer]). This suggests the absence of MRSA in the patient specimen submitted for testing. This test is cleared by the U.S. Food and Drug Administration for clinical use and its performance characteristics have been verified by the Clinical Genomics and [facility]. This result does not rule out the presence of any other organisms. Rare false negative results may occur if MRSA is present at low concentrations with much higher concentrations of other organisms including MRSE or S. aureus with an empty SCC cassette. Comment: [VERIFIED DATE]05.15.24 Verified By:Lupe Jensen (Electronic Signature) Tissue Culture, Aerobic & Anaerobic Toe [[id number]] (Abnormal) Collected: 05/14/24 113 Lab Status: Preliminary result Specimen: Toe Updated: 05/15/24 1212 Tissue culture [[id number]] (Abnormal) Collected: 05/14/24 113 Lab Status: Preliminary result Specimen: Toe Updated: 05/15/24 121 Tissue Culture No growth to date. Gram Stain -- Few Neutrophils seen Rare Gram Positive Cocci in pairs seen Results called to and read back by Dr. Mihaela Galvan 05/14/24 14:57:00 Organism Gram Positive Cocci in pairs Anaerobic Culture [[id number]] Collected: 05/14/24 113 Lab Status: Preliminary result Specimen: Toe Updated: 05/15/24 1124 Anaerobic Culture No anaerobic organisms isolated to date Blood culture [[id number]] Collected: 05/10/24 0232 Lab Status: Final result Specimen: Blood from Hand, Right Updated: 05/15/24 0701 Blood Culture No growth at 5 days. Skin/Superficial Wound Culture Toe [[id number]] (Abnormal) Collected: 05/10/24 0256 Lab Status: Final [...] PGY-1, Internal Medicine Red Team - Pager [phone] Associated attestation - Treva Diaz MD - [...] likely suture removal on 06/05/24. Please page [phone] with any questions or concerns. Activity: NWB until forefoot offloading shoe DVT prophylaxis: per primary, rec 30 days LVX or ASA81 BID Closure: Sutures (to be removed at Orthopaedic follow-up appointment) Dressing: bacitracin, xeroform, 4x4, kerlix, DEREK x 7 days Antibiotics: per primary Isra Rodriguez IV, DO 05/16/2024 Future Appointments Date Time Provider Department Center 06/05/2024 4:00 PM Elkin Garcia MD [facility] ORTH [address] [place] [address] * Mihaela Galvan MD - 05/15/2024 6:41 AM EDT Images from the original note were not included. [facility] Medicine - Red Team Inpatient Progress Note [...] Procedure Component Value - Date/Time Tissue culture [[id number]] (Abnormal) Collected: 05/14/24 1133 Lab Status: Preliminary result Specimen: Toe Updated: 05/14/24 1459 Gram Stain -- Few Neutrophils seen Rare Gram Positive Cocci in pairs seen Results called to and read back by Dr. Mihaela Galvan 05/14/24 14:57:00 Organism Gram Positive Cocci in pairs Blood culture [[id number]] Collected: 05/10/24 0232 Lab Status: Preliminary result Specimen: Blood from Hand, Right Updated: 05/14/24 0701 Blood Culture No growth at 4 days. Skin/Superficial Wound Culture Toe [[id number]] (Abnormal) Collected: 05/10/24 0256 Lab Status: Final [...] PGY-1, Internal Medicine Red Team - Pager [phone] Associated attestation - Treva Diaz MD - [...] of two midnights or is on the [facility] inpatient only procedure list (status [...] Center 06/05/2024 4:00 PM Elkin Garcia MD [facility] ORTH 3C [facility] * Savannah Sy RN - 05/14/2024 1:45 [...] Center 06/05/2024 4:00 PM Elkin Garcia MD [facility] ORTH [address] [place] [address] * Mihaela Galvan MD - 05/14/2024 6:04 [...] PGY-1, Internal Medicine Red Team - Pager [phone] Associated attestation - Treva Diaz MD - [...] of two midnights or is on the [facility] inpatient only procedure list (status [...] OR for the above procedure. Please page [phone] if there are any concerns regarding OR [...] Galvan MD - 05/13/2024 6:28 AM EDT [facility] Medicine - Red Team Inpatient Progress Note [...] Intake/Output Summary (Last 24 hours) at 05/13/2024 0635 Last data filed at 05/13/2024 0400 Gross [...] PGY-1, Internal Medicine Red Team - Pager [phone] Associated attestation - Treva Diaz MD - [...] of two midnights or is on the [facility] inpatient only procedure list (status C) due to: RLE cellulitis with concern forosteomyelitis. Continue on iv antibiotics and follow up with orthopedics regarding any surgical debridement . * Sarwat Marti - 05/12/2024 2:20 PM EDT Shaft Repairer Encounter Note Patient Name: Jossy Shanks : [id number] MR#: [id number] Admit Date: 05/10/2024 2:12 AM Hospital Day 2 days Narrative:Visited to introduce and assess acceptance of Shaft Repairer services. Patient was sleeping and I will visit an other time. Assessment: Intervention and Outcome: Follow-up: Time in Direct Care: Sarwat Marti 05/12/2024 * Mihaela Galvan MD - 05/12/2024 6:36 AM EDT [facility] Medicine - Red Team Inpatient Progress Note [...] PGY-1, Internal Medicine Red Team - Pager [phone] Associated attestation - Treva Diaz MD - [...] of two midnights or is on the [facility] inpatient only procedure list (status C) due to: RLE cellulitis with concern forosteomyelitis. Continue on iv antibiotics and discuss with orthopedics regarding any urgent need for surgical debridement. * Rodriguez Tian MD - 05/11/2024 10:23 AM EDT MEDICINE PAGER [phone] - [facility] Daily Progress Note Admit Date: 05/10/2024 [...] controlled Afib (Xarelto, dilt, coreg), admitted to [facility] on 05/10/2024 with LE cellulitis 2/2 right [...] CHO counting level 2 Last BM documented: (FOREIGN LAW CONSULTANT) DVT Prophylaxis: Heparin DOAC Code Status: Attempt [...] of two midnights or is on the [facility] inpatient only procedure list (status [...] presented to a local emergency [place] yesterday ([id number] birthday) due to ongoing wound issues and [...] Intake/Output Summary (Last 24 hours) at 05/10/2024 0978 Last data filed at 05/10/2024 0552 Gross [...] minimumof two midnights or is on the [facility] inpatient only procedure list (status [...] on Lasix, HTN on Losartan,who presented to [facility] for rt LE cellulitis, transferred to [facility] for septic shock. Interval Events: - lactate [...] 05/10/2024 2:37 AM) Result Value WORKSTATION ID [id number] Impression Bibasilar atelectasis. Thank you for letting us participate in the care of this patient. If you are a health care provider and have any questions regarding this report, please contact the number below. For patients who have questions please contact the health morning caregiver that requested your imaging first. foot pending [...] Thomas MD - 05/10/2024 2:56 AM EDT [facility] TeleICU Initial Assessment Note I established audio/visual [...] hour(s)) Lactate, whole blood, send to lab ([facility] Result Value Lactate WB 2.3 (H) Prothrombin [...] infection if clinical appearance is worrisome -Awaiting [facility] admission K+ level and Chem 7 -Would [...] indication: Osteomyelitis, central venous access required for residential antibiotic use IR workflow: Procedure request received through Interventional Radiology eDH order queue. There are no answered order specific questions. History of Present Illness: Per chart review, Jossy Shanks is a 69 y.o. male with PMH of CKD, DM,COPD, A.fib, admitted for RLE cellulitis and osteomyelitis s/p 2ng toe amputation requiring residential IV antibiotic administration who presents to Interventional [...] medical record. IR History: None listed at [facility] Anticoagulation/Antiplatelet: None listed Labs: Lab Results Component [...] Assessment: 69 y.o. male with OM requiring exterminator helper IV ABX presenting to Interventional Radiology for [...] 6.64) performed by Elkin Garcia MD at [facility] MAIN OR Social History and Habits: [...] indication: Osteomyelitis, central venous access required for exterminator helper antibiotic use IR workflow: Procedure request received through Interventional Radiology eDH order queue. There are no answered order specific questions. History of Present Illness: Per chart review, Jossy Shanks is a 69 y.o. male with PMH of CKD, DM,COPD, A.fib, admitted for RLE cellulitis and osteomyelitis s/p 2ng toe amputation requiring exterminator helper IV antibiotic administration who presents to Interventional [...] medical record. IR History: None listed at [facility] Anticoagulation/Antiplatelet: None listed Labs: Lab Results Component [...] Assessment: 69 y.o. male with OM requiring residential IV ABX presenting to Interventional Radiology for [...] 6.64) performed by Elkin Garcia MD at [facility] MAIN OR Social History and Habits: [...] amputation. Isra Rodriguez IV, DO Orthopaedic Surgery [facility] * Carlotta Davis MD - 05/10/2024 5:48 [...] on home oxygen, HFpEF, HTN, admitted to [facility] on 05/10/2024, now on Hospital Day #0, for RLE cellulitis SUBJECTIVE History of Present Illness: Per admitting provider Jossy Shanks is a 69 y.o. year old male with PMH significant for IDDM, Afib rate controlled, CKD (bsl cr 1.5), COPD not on home oxygen, HFpEF, HTN who presented to [facility] for rt LE cellulitis, transferred to [facility] for RLE cellulitis after trauma to his [...] knee. Fevers & chills for last 24hrs. [place] lightheaded, weak, & couldn't get out of [...] prior to OSH departure. On arrival to [facility]: HR 96, o2 sat mid 90s on [...] limbs -chronic Motor Exam: Upper Limb Bilateral: Travel Specialist Strength 5/5 Wrist Flexion/Extension 5/5 Elbow Flexion/Extension [...] in the last 7068 hours. Invalid input(s): [id number] Recent Labs 05/10/24219 HA1C 5.9* Lipids: Heme: No results for input(s): LDH, HAPTOGLOBIN, URICACID in the last 168 hours. ABG (Arterial Blood Gas): No results found for: PHART, PO2ART, EKO5QXA, RXC4WTC VBG (Venous Blood Gas): No results for input(s): PHVEN, TMW0LYB, PO2VEN, MKL4NKQ, BEVEN, GKM5XQF in the last 72hours. EKG: No results [...] 05/10/2024 2:37 AM) Result Value WORKSTATION ID [id number] Impression Bibasilar atelectasis. Thank you for letting us participate in the care of this patient. If you are a health care provider and have any questions regarding this report, please contact the number below. For patients who have questions please contact the health morning caregiver that requested your imaging first. Foot wwo Contrast Right (Exam End: 05/10/2024 5:51 AM) Result Value WORKSTATION ID [id number] Impression 1. Soft tissue irregularity of the [...] who have questions please contact the health morning caregiver that requested your imaging first. Medications: Scheduled: [...] controlled Afib (Xarelto, dilt, coreg), admitted to [facility] on 05/10/2024, now on Hospital Day #0, [...] Internal Medicine PGY2 Medicine Team: Red, Pager #[phone] Associated attestation - Treva Diaz MD - [...] home oxygen, HFpEF, HTN who presented to [facility] for rt LE cellulitis, transferred to [facility] for septic shock. Reports end of March [...] knee. Fevers & chills for last 24hrs. [place] lightheaded, weak, & couldn't get out of [...] prior to OSH departure. On arrival to [facility]: HR 96, o2 sat mid 90s on [...] mobilizes w/out assistance. Darion Morgan is DPOA; [phone] Physical Exam: Vitals: Last value Range last [...] Anita Camacho MD Internal Medicine, PGY2 05/10/2024 [facility] Pager #[phone] documented in this encounter Procedure Notes * Juan José Flowers MD - 05/21/2024 11:49 AM EDT IR PROCEDURE NOTE Procedure: Tunneled central venous catheter placement. Indication for Procedure: Per Allyn MIMS, Jossy Shanks is a 69 y.o. male with PMH of CKD, DM, COPD, A.fib, admitted for RLE cellulitis andosteomyelitis s/p 2ng toe amputation requiring exterminator helper IV antibiotic administration who presents to Interventional [...] Patient is medically ready for discharge to [facility]. Needs for Transition of Care: Plan for discharge is: Assisted Facility / Swing OPAT Orders: ID Consult Ordered Agency Referrals & Follow-up Care: Contact information for follow-up [facility] [address] [place] [place] [address] Transportation: family or friend will provide Wheelchair [...] through: Primary Insurance: AAR MANAGED MEDICARE Payor: [facility] MANAGED MEDICARE / Plan: [facility] MANAGED MEDICARE COMPLETE / Product Type: *No Product type* / Secondary Insurance: N/A Prescription Coverage: Yes This plan was formulated with input from patient and team. All are in agreement with plan. Shirley Samuel RN CM Horticultural Specialty Grower Inside- Medicine Office of Care Management Ext: [phone] Pager: [phone] * Plan of Care - Juan José [...] and were able to stop the bleeding. Hygiene Teacher carolyn a hemoglobin when patient got back [...] Operative Note Patient Name: Jossy Shanks : [id number] MR#: [id number] Case Date: 05/22/2024 Surgeon: Surgeons and Role: [...] Access Non-Dialysis 05/21/2024 Juan José Flowers MD [facility] INTERVENTIONL RAD PRO AMPUTATION METATARSAL+TOE, SINGLE Right 05/14/2024 AMPUTATION, TRANSMETATARSAL TOE, ONE TOE (WRVU 6.64) performed by Elkin Garcia MD at [facility] MAIN OR SOCIAL HX: Social History [...] who have questions, please contact the health morning caregiver that requested your imaging first. Teofilo Ruiz, [...] who have questions please contact the health morning caregiver that requested your imaging first. Chest One View Final Result Bibasilar atelectasis. Thank you for letting us participate in the care of this patient. If you are a health care provider and have any questions regarding this report, please contact the number below. For patients who have questions please contact the health morning caregiver that requested your imaging first. SCOPY: Reports [...] anticoagulation and significant anemia. Tl Steele MD [facility] Gastroenterology * Plan of Care - Pretty [...] Pain Flowsheets (Taken 05/20/2024802) Pain Management Interventions: hlfjxw-tnw-bfzdd dosing utilized breathing exercises care clustered diversional [...] Payor: [employer]ARP MANAGED MEDICARE / Plan: AARP [facility] MANAGED MEDICARE COMPLETE / Product Type: *No Product type* / Secondary Insurance: N/A Last Physical Therapy Recommendation: swing bed rehabilitation facility, [facility] facility with to be determined Last Occupational Therapy Recommendation: [facility] facility, swing bed rehabilitation facility with to be determined Plan for discharge is: Assisted Facility / Swing Outpatient Agency/Support Group Needs: Homecare agency OPAT Orders: ID Consult Ordered Location: Home Home Health Services: IV Therapy Agency Referrals: Based on discussions with the multi-disciplinary healthcare team, the patient would benefit from SNF level of care at discharge. I have met with the patient to: discuss discharge planning needs. provide the [facility], Office of Care Management letter from the Millinery Copyist pertaining to rehab referrals. provide a letter describing our affiliations within the [facility] and educate about their right to choose where referrals are sent. provide the CMS Star Quality Rating handout. review the different levels of rehab including SNF, swing, and acute. provide a list of facilities within their preferred geographic area. request that they provide at least three choices for referral. They have requested referrals to: [facility] [address] [place] [address] [facility] [address] [place] [address] -OFFERED BED, PENDING INSURANCE AUTHORIZATION 05/20 [address] [facility] [address] [place] [address] [facility] [address] [place] [address] [facility]) [address] [place] [address] (Accepts pts only after exhausting all other local SNF options) Does patient have COVID vaccine card: Yes; Copy obtained: No Note routed to a Fire Suppression Captain who will communicate referrals to facilities and provide any required information. Transportation: family or friend will provide Barriers to discharge: Discharge planning Plan going forward: Referrals routed for SNF/Swing. Care Management will continue to follow and assist with discharge planning and coordination of care as indicated. Anticipated Date of Discharge: 05/21/2024 Shirley Samuel RN CM Horticultural Specialty Grower Inside- Medicine Office of Care Management Ext: [phone] Pager: [phone] * Plan of Care - Pretty Ramirez [...] shock at his time of transfer to [facility]. Creatinine on admission was 3.94 mg/dL, he [...] 6.64) performed by Elkin Garcia MD at [facility] MAIN OR insulin glargine-ygfn (Semglee) (100 [...] Flowsheets (Taken 05/18/2024 0838) Pain Management Interventions: hzjanf-rsl-fvffl dosing utilized care clustered diversional activity provided [...] television Taken 05/15/2024 1825 Pain Management Interventions: cxgvpa-uoe-aetfy dosing utilized position adjusted pillow support provided [...] smartphone Taken 05/15/2024 1825 Pain Management Interventions: rlveqo-qvg-vfswo dosing utilized position adjusted pillow support provided [...] 6.64) performed by Elkin Garcia MD at [facility] MAIN OR Active Non-Hospital Problems Diagnosis [...] Perception: WNL / WFL and corrective lenses timers inspector Communication: WFL Range of motion, strength, coordination: [...] planning. Total Minutes, Occupational Therapy: 90 (evaluation ([id number])) 2017 OT Evaluation Code Rationale: Diagnosis & [...] and measurable assessment of functional outcome. Pager: [phone] Penny Rodriguez OT 05/16/2024 Occupational Therapy Rehabilitation [...] have. Alternately, during off-hours you may call [phone] to contact a pharmacist. * Consult Note [...] briefly on vasopressors, and then transferred to [facility] for further management. 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 05/14. Reports a hx of cellulitis in the Left leg back in 2009 for which he states he did a course of 6 week son IV abx from [facility]. Has gotten cellulitis about half a dozen times in total. Review of Systems: Pertinent positives and negatives noted in HPI. 14 point ROS otherwise negative except noted in HPI. Allergies/Adverse drug reactions: No Known Allergies Family History: Family History No data available Social History: Housing: lives in a camper in [facility] Occupation: Former [employer], retired in 2017 [...] Procedure Component Value - Date/Time Blood culture [[id number]] Collected: 05/10/24 0232 Lab Status: Final result Specimen: Blood from Hand, Right Updated: 05/15/24 0701 Blood Culture No growth at 5 days. Tissue culture [[id number]] (Abnormal) Collected: 05/14/24 1133 Lab Status: Preliminary result Specimen: Toe Updated: 05/14/24 1459 Gram Stain -- Few Neutrophils seen Rare Gram Positive Cocci in pairs seen Results called to and read back by Dr. Mihaela Galvan 05/14/24 14:57:00 Organism Gram Positive Cocci in pairs Skin/Superficial Wound Culture Toe [[id number]] (Abnormal) Collected: 05/10/24 0256 Lab Status: Final [...] follow. Please page ID Red team (pager [phone]) with questions or concerns. Emmanuel Corey, DO Internal Medicine PGY-2 Pager: [phone] Epic Chat 05/15/2024 Associated attestation - Rodriguez [...] Home Health Services: IV Therapy Agency Referrals: [place] [address] or Home Care Orders: 1. IV Antibiotics: [...] Plan going forward: Barbie routed and pended. [facility] routed. Care Management will continue to follow and assist with discharge planning and coordination of care as indicated. Anticipated Date of Discharge: 05/19/2024 Shirley Samuel RN CM Horticultural Specialty Grower Inside- Medicine Office of Care Management Ext: [phone] Pager: [phone] * Plan of Care - YgChristine lloyd [...] Operative Note Patient Name: Jossy Shanks : [id number] MR#: [id number] Case Date: 05/14/2024 Surgeon: Surgeons and Role: [...] Garcia MD - 05/14/2024 11:16 AM EDT [facility] Operative Note Patient Name: Jossy Shanks : [id number] MR#: [id number] Case Date: 05/14/2024 Surgeon: Surgeons and Role: [...] can weight-bear as tolerated and heel off liquid loader We will follow his wounds while he is here in the hospital. Surgical Infection Prevention Bundle Used? N/A Attestation: Case Date: 05/14/2024 I was present and I participated during the entire procedure (does not need to include opening and closing). Elkin Garcia MD 05/14/2024 * Consult Note - Hakeem Villa, [facility] - 05/14/2024 7:15 AM EDT [facility] Pharmacokinetics Note Drug: Vancomycin Pharmacokinetic target: AUC24 (range) 400-600 mg/L.hr Jossy Shanks is a 69-year-old male receiving intermittent Vancomycin doses Recent measured serum creatinine values: 05/14/2024 05:01 1.56 mg/dL 05/13/2024 05:29 1.53 mg/dL 05/12/2024 04:45 2.03 mg/dL Assessment: Analysis of the most recent level(s) using [employer] gives the following patient-specific pharmacokinetic parameters: CL: [...] controlled Afib (Xarelto, dilt, coreg), admitted to [facility] on 05/10/2024 with LE cellulitis 2/2 right foot trauma. Reason for intervention: Diet order question - what type of carb control diet does pt need? Nutrition Recommendations: Carb control level 3 diet Monitor po intake Monitor blood glucose levels Monitor weight trends I was able to discuss plan with provider Medicine Pager [phone] . Nutrition consult received regarding what type of carb control diet pt needs. Estimated nutrition needs based on ideal body weight of 89kg: Calories: 0007-2985 calories (20-25kcal/kg) Protein: 89-107g (1-1.2g/kg) Nutrition to [...] border dressing. (Melgisorb Ag 6x6 PS # [id number]) (Melgisorb Ag 4x4 PS # [id number]) Sacrum/ischium: open to air, utilize Z-guard if patient begins to have breakdown Supplies left at the bedside: 1 sheet of Melgisorb Ag, wound cleanser Wound Care will complete the consult at this time. If there are further issues please re-consult via eD-H. Discussed plan with: RN: Don Please contact Keeley Russell RN on eDH secure chat or the wound care team on pager [phone] with skin and wound care concerns or [...] surrogate would be surrogate decision maker per [place] surrogate decision making law. (Only good for 180 days) Son CONRADO Any patient receiving care in [place] must abide by [place] law. The hierarchy for surrogate decision making [...] The agent with financial power of assistant prosecuting attorney or a conservator appointed in accordance [...] Current DME: none Home Address listed as: [address] [place] [address] Pt is not currently residing here. Current address is as below: [place] [id number] [place] [id number] Social & Family Supports: All names listed below confirmed with patient as current and correct Extended Emergency Contact Information Primary Emergency Contact: Eddie Shanks Mobile Relation: Son/Tusfmitq-io-gea Secondary Emergency Contact: Gifty Bucio [facility] Relation: Mother Current Care Provided by: [...] Pertinent/Service Specific Information: Health/Prescription Coverage: Primary Insurance: [facility] [employer] [facility] OOS Payor: [facility] OOS / Plan: [facility] OOS PPO / Product Type: *No Product type* / Secondary Insurance: N/A ; Prescription Coverage: Yes Preferred Pharmacy: [id number] - [place], [place] - [address] [place] [address] AT [address] [facility] [address] [facility] [id number] Primary Care Provider listed: None None Pt does have PCP in [facility] Patient/Caregiver Goals of Treatment: Potential Needs for Transition of Care: none, home health care Agency Referrals: I have met with the patient to: discuss discharge planning needs. provide the [facility], Office of Care Management letter from the [employer] Copyist pertaining to rehab referrals. provide a letter describing our affiliations within the [facility] and educate about their right to choose where referrals are sent. provide a list of Home Health Agencies / Durable Medical Equipment vendors which serve their preferred geographic area. provided patient with [facility] Star Quality Rating handout. They have requested referrals to: [facility] [address] [place] [address] Note routed to a Fire Suppression Captain who will communicate referrals to facilities and [...] wait list for housing (an apartment) in [place], [place]; ETA for move-in is 4-8weeks. He does not feel that his local family members would be able to house him in the interim andexpresses that he is comfortable in his camper, which has amenities. He is fully independent at baseline but has used [facility] health in the past; a referral [...] Clinical Pharmacist Note - VancFD Jossy Shanks [id number] 1955 Jossy Shanks is a 69 y.o. [...] Alternately, during off-hours (-) you may call [phone] to contact a pharmacist. Rodriguez Sinclair RPH [...] intact shoulder abduction, elbow flexion/extension, wrist flexion/extension, buffet attendant, EPL, AIN, IO Brisk capillary refill distally [...] intact shoulder abduction, elbow flexion/extension, wrist flexion/extension, buffet attendant, EPL, AIN, IO Brisk capillary refill distally [...] changes develop in his course. Please page [phone] following completion of requestedimaging and studies. - Activity: no restrictions at this time - DVT prophylaxis: per primary; recommend lovenox 30 mg BID - Antibiotics: per ID - Imaging / studies needed: MRI wwo contrast, ABIs, ESR, CRP Tyrone Rehman MD Orthopaedic Surgery, 1530 documented in this encounter Plan of Treatment Upcoming Encounters Date Type Department Care Team (Late st Contact Info) Description 06/10/2024 10:30 AM EDT Office [place] [address] Elkin Garcia MD [facility] [place] [address] Scheduled Referrals Name Type Priority Associated Diagnoses [...] 05/14/2024 11:32 AM EDT Amputation Metatarsal+Toe, Single ([id number]) 05/14/2024 10:37 AM EDT right second toe [...] - 199 mg/dL 05/23/2024 12:[address] [facility] Comment:Supplemental ranges: <140 mg/dL before meals <180 mg/dL all other times of the day. Blood CAPILLARY BLOOD / Unknown 05/23/2024 12:32 PM EDT 05/23/2024 12:32 PM EDT Saba Spears MD POINT OF CARE TEST ORDERABLES Performing Organization Address City/State/[facility] Co de Phone Number [facility] [place] [address] * (ABNORMAL) Basic Metabolic Panel (05/23/2024 9:46 AM EDT) Glucose 142 65 - 199 mg/dL 05/23/2024 11:[address] [facility] Comment:Glucose Concentratio n >=200 mg/dL plus symptoms is consistent with Diabetes Mellitus. Blood Urea Nitrogen 83(H) 10 - 20 mg/dL 05/23/2024 11:[address] [facility] Creatinine 2.64(H) 0.80 - 1.50 mg/dL 05/23/2024 11:[address] [facility] Sodium 140 135 - 145 mMol/L 05/23/2024 11:[address] [facility] Potassium 5.2(H) 3.5 - 5.0 mMol/L 05/23/2024 11:[address] [facility] Chloride 111(H) 98 - 107 mMol/L 05/23/2024 11:[address] [facility] Carbon Dioxide 20(L) 22 - 31 mMol/L 05/23/2024 11:[address] [facility] Anion Gap 9 5 - 15 mMol/L 05/23/2024 11:[address] [facility] Calcium 9.3 8.5 - 10.5 mg/dL 05/23/2024 11:[address] [facility] Est Glomerular Filtration Rate - Male 25 mL/min/1. 73 m?? 05/23/2024 11:27 AM [facility] Comment: This patient's estimated GFR [...] EDT Saba Spears MD CHEMISTRY ORDERABLE S [facility] [place] [address] * (ABNORMAL) CBC (with Diff) (05/23/2024 9:46 AM EDT) White Blood Cell 12.66(H) 4.00 - 9.50 x10(3)/mc L 05/23/2024 10:[address] [facility] Red Blood Cell 2.56(L) 4.58 - 5.54 x10(6)/mc L 05/23/2024 10:52 AM [facility] Hemoglobin 7.7(L) 13.7 - 16.5 g/dL 05/23/2024 10:52 AM [facility] Hematocrit 24.3(L) 40.5 - 48.5 % 05/23/2024 10:52 AM [facility] Mean Cell Volume 94.9(H) 82.9 - 93.1 fL 05/23/2024 10:52 AM [facility] Mean Cell Hemoglobin 30.1 27.5 - 32.1 pg 05/23/2024 10:52 AM [facility] Mean Cell Hemoglobin Concentration 31.7(L) 32.0 - 35.7 g/dL 05/23/2024 10:52 AM [facility] Platelet 370(H) 145 - 357 x10(3)/mc L 05/23/2024 10:52 AM [facility] Mean Platelet Volume 11.6 7.6 - 12.9 fL 05/23/2024 10:52 AM [facility] RDW Standard Deviation 57.1(H) 36.0 - 45.0 fL 05/23/2024 10:52 AM [facility] RDW coefficient of variation 16.9(H) 11.4 - 13.8 % 05/23/2024 10:52 AM [facility] NRBC% auto 0.0 % 05/23/2024 10:52 AM [facility] NRBC Absolute 0.00 0.00 - 0.00 x10(3)/mc L 05/23/2024 10:52 AM [facility] Neutrophil % 81.6 % 05/23/2024 10:52 AM [facility] Neutrophil Absolute 10.34(H) 1.70 - 6.10 x10(3)/mc L 05/23/2024 10:[address] [facility] Lymph % 5.1 % 05/23/2024 10:[address] [facility] Lymph Absolute 0.64(L) 0.90 - 3.20 x10(3)/mc L 05/23/2024 10:[address] [facility] Monocyte % 10.7 % 05/23/2024 10:[address] [facility] Monocyte Absolute 1.35(H) 0.30 - 0.90 x10(3)/mc L 05/23/2024 10:[address] [facility] Eos % 1.7 % 05/23/2024 10:[address] [facility] Eos Absolute 0.22 0.00 - 0.40 x10(3)/mc L 05/23/2024 10:[address] [facility] Basophil % 0.3 % 05/23/2024 10:[address] [facility] Baso Absolute 0.04 0.00 - 0.10 x10(3)/mc L 05/23/2024 10:[address] [facility] Immature Gran % 0.6 % 10:[address] [facility] Immature Gran Absolute 0.07(H) 0.00 - 0.04 x10(3)/mc L 05/23/2024 10:[address] [facility] Blood VENOUS BLOOD SPECIMEN / Unknown IP Care Team Draw / Unknown 05/23/2024 9:46 AM EDT 05/23/2024 10:01 AM EDT Saba Spears MD HEMATOLOGY ORDERABL ES [facility] [place] [address] * POC, GLUCOSE (05/23/2024 7:44 AM EDT) [facility] Signature Glucometer, POC 127 65 - 199 mg/dL 05/23/2024 7:[address] [facility] Comment:Supplemental ranges: <140 mg/dL before meals <180 mg/dL all other times of the day. Blood CAPILLARY BLOOD / Unknown 05/23/2024 7:44 AM EDT 05/23/2024 7:45 AM EDT Saba Spears MD POINT OF CARE TEST ORDERABLES Performing Organization Address City/[facility] Co de Phone Number [facility] [place] [address] * Prepare RBC (05/23/2024 3:49 AM EDT) Status Information Transfused [facility] Product Identification RBC [facility] Unit Number [id number] [facility] Product Code [id number] [facility] Unit Blood Type OPOS [facility] Specimen Expiration Date [id number] [facility] Volulme 350 [facility] Issue Date / Time [id number] [facility] Blood 05/22/2024 12: 42 PM EDT Saba Spears MD BLOOD BANK PRODUCT ORDERABLES Performing Organization Address [facility] Co de Phone Number [facility] [place] [place] [address] * POC, GLUCOSE (05/23/2024 3:49 AM EDT) Glucometer, POC 152 65 - 199 mg/dL 05/23/2024 3:[address] [facility] Comment:Supplemental ranges: <140 mg/dL before meals <180 mg/dL all other times of the day. Blood CAPILLARY BLOOD / Unknown 05/23/2024 3:49 AM EDT 05/23/2024 3:49 AM EDT Saba Spears MD POINT OF CARE TEST ORDERABLES Performing Organization Address City/[facility]/ZIP Co de Phone Number [facility] [place] [address] * POC, GLUCOSE (05/23/2024 1:26 AM EDT) [facility] Glucometer, POC 138 65 - 199 mg/dL 05/23/2024 1:[address] [facility] Comment:Supplemental ranges: <140 mg/dL before meals <180 mg/dL all other times of the day. Blood CAPILLARY BLOOD / Unknown 05/23/2024 1:26 AM EDT 05/23/2024 1:26 AM EDT Saba Spears MD POINT OF CARE TEST ORDERABLES Performing Organization Address City/[facility]/ZIP Co de Phone Number [facility] [place] [address] * (ABNORMAL) Scan, Peripheral Blood (05/23/2024 1:19 AM EDT) [facility] RBC Morphology Abnormal 05/23/2024 3:[address] [facility] Platelet Estimate Increased(A) Normal 05/23/2024 3:[address] [facility] Ovalocytes 1-5 /HPF 05/23/2024 3:[address] [facility] [place] cells 1-5 /HPF 05/23/2024 3:[address] [facility] Blood VENOUS BLOOD SPECIMEN / Unknown IP Care Team Draw / Unknown 05/23/2024 1:19 AM EDT 05/23/2024 2:05 AM EDT Mary De La Fuente MD HEMATOLOGY ORDERAB LES [facility] [place] [address] * Magnesium (05/23/2024 1:19 AM EDT) [facility] Magnesium 0.86 0.69 - 1.07 mMol/L 05/23/2024 2:[address] [facility] Blood VENOUS BLOOD SPECIMEN / Unknown IP Care Team Draw / Unknown 05/23/2024 1:19 AM EDT 05/23/2024 2:05 AM EDT Mary De La Fuente MD CHEMISTRY ORDERABL ES Performing Organization Address [facility]/ZIP Co de Phone Number [facility] [place] [address] * (ABNORMAL) Phosphorus (05/23/2024 1:19 AM EDT) Phosphorus 5.8(H) 2.5 - 4.5 mg/dL 05/23/2024 2:[address] [facility] Blood VENOUS BLOOD SPECIMEN / Unknown IP Care Team Draw / Unknown 05/23/2024 1:19 AM EDT 05/23/2024 2:05 AM EDT Mary De La Fuente MD CHEMISTRY ORDERABL ES Performing Organization Address [facility] Co de Phone Number [facility] [place] [address] * (ABNORMAL) Basic Metabolic Panel (non-fasting) (05/23/2024 1:19 AM EDT) Glucose 158 65 - 199 mg/dL 05/23/2024 3:[address] [facility] Comment:Glucose Concentratio n >=200 mg/dL plus symptoms is consistent with Diabetes Mellitus. Blood Urea Nitrogen 85(H) 10 - 20 mg/dL 05/23/2024 3:[address] [facility] Creatinine 2.70(H) 0.80 - 1.50 mg/dL 05/23/2024 3:[address] [facility] Sodium 139 135 - 145 mMol/L 05/23/2024 3:[address] [facility] Potassium 4.9 3.5 - 5.0 mMol/L 05/23/2024 3:[address] [facility] Chloride 108(H) 98 - 107 mMol/L 05/23/2024 3:[address] [facility] Carbon Dioxide 20(L) 22 - 31 mMol/L 05/23/2024 3:[address] [facility] Anion Gap 11 5 - 15 mMol/L 05/23/2024 3:[address] [facility] Calcium 9.1 8.5 - 10.5 mg/dL 05/23/2024 3:[address] [facility] Est Glomerular Filtration Rate - Male 25 mL/min/1. 73 m?? 05/23/2024 3:[address] [facility] Comment: This patient's estimated GFR [...] Foundation Fasting Status 05/23/2024 3:[address] [facility] Blood VENOUS BLOOD SPECIMEN / Unknown IP Care Team Draw / Unknown 05/23/2024 1:19 AM EDT 05/23/2024 2:05 AM EDT Mary De La Fuente MD CHEMISTRY ORDERABL ES [facility] [place] [address] * (ABNORMAL) CBC (with Diff) (05/23/2024 1:19 AM EDT) White Blood Cell 12.66(H) 4.00 - 9.50 x10(3)/mc L 05/23/2024 3:[address] [facility] Red Blood Cell 2.61(L) 4.58 - 5.54 x10(6)/mc L 05/23/2024 3:44 AM [facility] Hemoglobin 7.8(L) 13.7 - 16.5 g/dL 05/23/2024 3:44 AM [facility] Hematocrit 24.3(L) 40.5 - 48.5 % 05/23/2024 3:44 AM [facility] Mean Cell Volume 93.1 82.9 - 93.1 fL 05/23/2024 3:44 AM [facility] Mean Cell Hemoglobin 29.9 27.5 - 32.1 pg 05/23/2024 3:44 AM [facility] Mean Cell Hemoglobin Concentration 32.1 32.0 - 35.7 g/dL 05/23/2024 3:44 AM [facility] Platelet 381(H) 145 - 357 x10(3)/mc L 05/23/2024 3:44 AM [facility] Mean Platelet Volume 11.4 7.6 - 12.9 fL 05/23/2024 3:44 AM [facility] RDW Standard Deviation 55.1(H) 36.0 - 45.0 fL 05/23/2024 3:44 AM [facility] RDW coefficient of variation 16.5(H) 11.4 - 13.8 % 05/23/2024 3:44 AM [facility] NRBC% auto 0.0 % 05/23/2024 3:44 AM [facility] NRBC Absolute 0.00 0.00 - 0.00 x10(3)/mc L 05/23/2024 3:44 AM [facility] Neutrophil % 79.4 % 05/23/2024 3:44 AM [facility] Comment:This is an appended report. These results have been appended to a previously preliminary verified report. Neutrophil Absolute 10.06(H) 1.70 - 6.10 x10(3)/mc L 05/23/2024 3:44 AM [facility] Comment:This is an appended report. These results have been appended to a previously preliminary verified report. Lymph % 5.8 % 05/23/2024 3:44 AM [facility] Comment:This is an appended report. These results have been appended to a previously preliminary verified report. Lymph Absolute 0.73(L) 0.90 - 3.20 x10(3)/mc L 05/23/2024 3:44 AM [facility] Comment:This is an appended report. These results have been appended to a previously preliminary verified report. Monocyte % 12.1 % 05/23/2024 3:44 AM [facility] Comment:This is an appended report. These results have been appended to a previously preliminary verified report. Monocyte Absolute 1.53(H) 0.30 - 0.90 x10(3)/mc L 05/23/2024 3:44 AM [facility] Comment:This is an appended report. These results have been appended to a previously preliminary verified report. Eos % 1.9 % 05/23/2024 3:44 AM [facility] Comment:This is an appended report. These results have been appended to a previously preliminary verified report. Eos Absolute 0.24 0.00 - 0.40 x10(3)/mc L 05/23/2024 3:44 AM [facility] Comment:This is an appended report. These results have been appended to a previously preliminary verified report. Basophil % 0.3 % 05/23/2024 3:44 AM [facility] Comment:This is an appended report. These results have been appended to a previously preliminary verified report. Baso Absolute 0.04 0.00 - 0.10 x10(3)/mc L 05/23/2024 3:44 AM [facility] Comment:This is an appended report. These results have been appended to a previously preliminary verified report. Immature Gran % 0.5 % 3:44 AM [facility] Comment:This is an appended report. These results have been appended to a previously preliminary verified report. Immature Gran Absolute 0.06(H) 0.00 - 0.04 x10(3)/mc L 05/23/2024 3:[address] [facility] Comment:This is an appended report. These results have been appended to a previously preliminary verified report. Blood VENOUS BLOOD SPECIMEN / Unknown IP Care Team Draw / Unknown 05/23/2024 1:19 AM EDT 05/23/2024 2:05 AM EDT Mary De La Fuente MD HEMATOLOGY ORDERAB LES Performing Organization Address City/[facility]/ZIP Co de Phone Number [facility] [place] [address] * POC, GLUCOSE (05/22/2024 8:21 PM EDT) Glucometer, POC 152 65 - 199 mg/dL 05/22/2024 8:[address] [facility] Comment:Supplemental ranges: <140 mg/dL before meals <180 mg/dL all other times of the day. Blood CAPILLARY BLOOD / Unknown 05/22/2024 8:21 PM EDT 05/22/2024 8:21 PM EDT Saba Spears MD POINT OF CARE TEST ORDERABLES Performing Organization Address City/[facility]/ZIP Co de Phone Number [facility] [place] [address] * POC, GLUCOSE (05/22/2024 6:20 PM EDT) Glucometer, POC 130 65 - 199 mg/dL 05/22/2024 6:[address] [facility] Comment:Supplemental ranges: <140 mg/dL before meals <180 mg/dL all other times of the day. Blood CAPILLARY BLOOD / Unknown 05/22/2024 6:20 PM EDT 05/22/2024 6:21 PM EDT Saba Spears MD POINT OF CARE TEST ORDERABLES [facility] [place] [address] * Transfuse RBC (05/22/2024 2:45 PM EDT) Saba Spears MD NURSING TREATMENT O RDERABLES - BLOOD ADMIN * UPPER GI ENDOSCOPY (05/22/2024 12:48 PM EDT) Pathologist [facility] UPPER GI ENDOSCOPY [facility] Endoscopy ___ Procedure Date: 05/22/2024 12:48 PM ? Patient Name: Jossy Shanks ? N: [id number] ? Date of : 1955 ? Age: 69 ? Order #: [id number] ? Instrument Name: [id number] ? ___ Procedure: ? Upper GI endoscopy [...] HISTORY FOUND) (05/22/2024 11:18 AM EDT) Pathologist [facility] ABOR Recheck Progress Complete 05/22/2024 1:01 PM EDT [facility] Blood VENOUS BLOOD SPECIMEN / Unknown IP Care Team Draw / Unknown 05/22/2024 11:18 AM EDT 05/22/2024 11:27 AM EDT Saba Spears MD BLOOD BANK LAB FADY GAO [facility] [place] [address] * Type and screen ([facility]/CGP/TARA) (05/22/2024 11:18 AM EDT) ABORH Type O POSITIVE 05/22/2024 12:31 PM EDT [facility] PATIENT HISTORY Found 05/22/2024 12:31 PM EDT [facility] Expires at [id number] on: 05-22-2024 05/22/2024 12:31 PM EDT [facility] ANTIBODY SCREEN AUTOMATED Negative 05/22/2024 12:31 PM EDT [facility] T&S only valid at [facility] 05/22/2024 12:31 PM EDT [facility] Blood VENOUS BLOOD SPECIMEN / Unknown IP Care Team Draw / Unknown 05/22/2024 11:18 AM EDT 05/22/2024 11:27 AM EDT Narrative [facility] - 05/22/2024 12:31 PM EDT This Type and Screen result is only valid at the [facility] Saba Spears MD BLOOD BANK LAB ORDE RABLES Performing Organization Address City/[facility]/ZIP Co de Phone Number [facility] [place] [place] [address] * (ABNORMAL) Hemoglobin and Hematocrit, blood (05/22/2024 11:18 AM EDT) Hemoglobin 6.9(L) 13.7 - 16.5 g/dL 05/22/2024 12:[address] [facility] Hematocrit 21.4(L) 40.5 - 48.5 % 05/22/2024 12:[address] [facility] Blood VENOUS BLOOD SPECIMEN / Unknown IP Care Team Draw / Unknown 05/22/2024 11:18 AM EDT 05/22/2024 11:36 AM EDT Saba Spears MD HEMATOLOGY ORDERABL ES [facility] [place] [address] * POC, GLUCOSE (05/22/2024 11:14 AM EDT) Glucometer, POC 126 65 - 199 mg/dL 05/22/2024 11:[address] [facility] Comment:Supplemental ranges: <140 mg/dL before meals <180 mg/dL all other times of the day. Blood CAPILLARY BLOOD / Unknown 05/22/2024 11:14 AM EDT 05/22/2024 11:18 AM EDT Saba Spears MD POINT OF CARE TEST ORDERABLES Performing Organization Address City/[facility]/ZIP Co de Phone Number [facility] [place] [address] * POC, GLUCOSE (05/22/2024 8:07 AM EDT) Glucometer, POC 132 65 - 199 mg/dL 05/22/2024 8:[address] [facility] Comment:Supplemental ranges: <140 mg/dL before meals <180 mg/dL all other times of the day. Blood CAPILLARY BLOOD / Unknown 05/22/2024 8:07 AM EDT 05/22/2024 8:08 AM EDT Saba Spears MD POINT OF CARE TEST ORDERABLES Performing Organization Address [facility] Co de Phone Number [facility] [place] [address] * (ABNORMAL) Hepatic Function Panel (05/22/2024 5:18 AM EDT) Albumin 2.6(L) 3.2 - 5.2 g/dL 05/22/2024 9:[address] [facility] Aspartate Aminotransferase 18 <=39 unit/L 05/22/2024 9:[address] [facility] Alanine Aminotransferase 42 0 - 55 unit/L 05/22/2024 9:[address] [facility] Alkaline Phosphatase 84 40 - 130 unit/L 05/22/2024 9:[address] [facility] Bilirubin, Total <0.2 <=1.3 mg/dL 05/22/2024 9:[address] [facility] Bilirubin, Direct <0.2 0.0 - 0.3 mg/dL 05/22/2024 9:[address] [facility] Protein, Total 6.0(L) 6.1 - 8.0 g/dL 05/22/2024 9:[address] [facility] Blood VENOUS BLOOD SPECIMEN / Unknown IP Care Team Draw / Unknown 05/22/2024 5:18 AM EDT 05/22/2024 5:45 AM EDT Saba Spears MD CHEMISTRY ORDERABLE S Performing Organization Address City/[facility]/ZIP Co de Phone Number [facility] [place] [address] * Magnesium (05/22/2024 5:18 AM EDT) Magnesium 0.93 0.69 - 1.07 mMol/L 05/22/2024 6:[address] [facility] Blood VENOUS BLOOD SPECIMEN / Unknown IP Care Team Draw / Unknown 05/22/2024 5:18 AM EDT 05/22/2024 5:45 AM EDT Mary De La Fuente MD CHEMISTRY ORDERABL ES Performing Organization Address [facility]/ZIP Co de Phone Number [facility] [place] [address] * (ABNORMAL) Phosphorus (05/22/2024 5:18 AM EDT) Phosphorus 5.8(H) 2.5 - 4.5 mg/dL 05/22/2024 6:[address] [facility] Blood VENOUS BLOOD SPECIMEN / Unknown IP Care Team Draw / Unknown 05/22/2024 5:18 AM EDT 05/22/2024 5:45 AM EDT Mary De La Fuente MD CHEMISTRY ORDERABL ES Performing Organization Address City/[facility]/ZIP Co de Phone Number [facility] [place] [address] * (ABNORMAL) Basic Metabolic Panel (05/22/2024 5:18 AM EDT) Glucose 121 65 - 199 mg/dL 05/22/2024 6:16 AM [facility] Comment:Glucose Concentratio n >=200 mg/dL plus symptoms is consistent with Diabetes Mellitus. Blood Urea Nitrogen 97(H) 10 - 20 mg/dL 05/22/2024 6:16 AM [facility] Creatinine 2.77(H) 0.80 - 1.50 mg/dL 05/22/2024 6:16 AM [facility] Sodium 138 135 - 145 mMol/L 05/22/2024 6:16 AM [facility] Potassium 5.1(H) 3.5 - 5.0 mMol/L 05/22/2024 6:16 AM [facility] Chloride 110(H) 98 - 107 mMol/L 05/22/2024 6:16 AM [facility] Carbon Dioxide 20(L) 22 - 31 mMol/L 05/22/2024 6:16 AM [facility] Anion Gap 8 5 - 15 mMol/L 05/22/2024 6:16 AM [facility] Calcium 9.4 8.5 - 10.5 mg/dL 05/22/2024 6:16 AM [facility] Est Glomerular Filtration Rate - Male 24 mL/min/1. 73 m?? 05/22/2024 6:16 AM [facility] Comment: This patient's estimated GFR [...] Foundation Fasting Status No 05/22/2024 6:16 AM [facility] Blood VENOUS BLOOD SPECIMEN / Unknown IP Care Team Draw / Unknown 05/22/2024 5:18 AM EDT 05/22/2024 5:45 AM EDT Mary De La Fuente MD CHEMISTRY ORDERABL ES [facility] [place] [address] * (ABNORMAL) CBC (with Diff) (05/22/2024 5:18 AM EDT) White Blood Cell 14.70(H) 4.00 - 9.50 x10(3)/mc L 05/22/2024 5:[address] [facility] Red Blood Cell 2.37(L) 4.58 - 5.54 x10(6)/mc L 05/22/2024 5:[address] [facility] Hemoglobin 7.2(L) 13.7 - 16.5 g/dL 05/22/2024 5:[address] [facility] Hematocrit 22.1(L) 40.5 - 48.5 % 05/22/2024 5:[address] [facility] Mean Cell Volume 93.2(H) 82.9 - 93.1 fL 05/22/2024 5:[address] [facility] Mean Cell Hemoglobin 30.4 27.5 - 32.1 pg 05/22/2024 5:[address] [facility] Mean Cell Hemoglobin Concentration 32.6 32.0 - 35.7 g/dL 05/22/2024 5:[address] [facility] Platelet 366(H) 145 - 357 x10(3)/mc L 05/22/2024 5:[address] [facility] Mean Platelet Volume 10.9 7.6 - 12.9 fL 05/22/2024 5:[address] [facility] RDW Standard Deviation 54.6(H) 36.0 - 45.0 fL 05/22/2024 5:[address] [facility] RDW coefficient of variation 16.3(H) 11.4 - 13.8 % 05/22/2024 5:52 AM [facility] NRBC% auto 0.0 % [facility] Absolute 0.00 0.00 - 0.00 x10(3)/mc L 05/22/2024 5:52 AM [facility] Neutrophil % 83.2 % 05/[facility]24 [facility] Neutrophil Absolute 12.22(H) 1.70 - 6.10 x10(3)/mc L 05/22/2024 5:52 AM [facility] Lymph % 4.4 % 05/22/2024 5:52 AM [facility] Lymph Absolute 0.65(L) 0.90 - 3.20 x10(3)/mc L 05/22/2024 5:52 AM [facility] Monocyte % 9.7 % 05/22/2024 5:52 AM [facility] Monocyte Absolute 1.43(H) 0.30 - 0.90 x10(3)/mc L 05/22/2024 5:52 AM [facility] Eos % 1.9 % 05/22/2024 5:52 AM [facility] Eos Absolute 0.28 0.00 - 0.40 x10(3)/mc L 05/22/2024 5:52 AM [facility] Basophil % 0.2 % 05/22/2024 5:52 AM [facility] Baso Absolute 0.03 0.00 - 0.10 x10(3)/mc L 05/22/2024 5:52 AM [facility] Immature Gran % 0.6 % 5:52 AM [facility] Immature Gran Absolute 0.09(H) 0.00 - 0.04 x10(3)/mc L 05/22/2024 5:52 AM [facility] Blood VENOUS BLOOD SPECIMEN / Unknown IP Care Team Draw / Unknown 05/22/2024 5:18 AM EDT 05/22/2024 5:45 AM EDT Mary De La Fuente MD HEMATOLOGY ORDERAB LES Performing Organization Address City/[facility]/ZIP Co de Phone Number [facility] [place] [address] * POC, GLUCOSE (05/22/2024 3:50 AM EDT) Glucometer, POC 140 65 - 199 mg/dL 05/22/2024 3:[address] [facility] Comment:Supplemental ranges: <140 mg/dL before meals <180 mg/dL all other times of the day. Blood CAPILLARY BLOOD / Unknown 05/22/2024 3:50 AM EDT 05/22/2024 3:50 AM EDT Saba Spears MD POINT OF CARE TEST ORDERABLES Performing Organization Address [facility]/ZIP Co de Phone Number [facility] [place] [address] * Scan Doc: Lab (05/22/2024 12:00 AM EDT) Narrative 05/22/2024 12:00 AM EDT Ordered by an unspecified provider. Scanning Provider MEDIA MGR SCAN EXT O RDR/RSLT * POC, GLUCOSE (05/21/2024 11:28 PM EDT) Glucometer, POC 174 65 - 199 mg/dL 05/21/2024 11:[address] [facility] Comment:Supplemental ranges: <140 mg/dL before meals <180 mg/dL all other times of the day. Blood CAPILLARY BLOOD / Unknown 05/21/2024 11:28 PM EDT 05/21/2024 11:28 PM EDT Saba Spears MD POINT OF CARE TEST ORDERABLES Performing Organization Address City/[facility]/ZIP Co de Phone Number [facility] [place] [address] * POC, GLUCOSE (05/21/2024 7:49 PM EDT) Glucometer, POC 161 65 - 199 mg/dL 05/21/2024 7:[address] [facility] Comment:Supplemental ranges: <140 mg/dL before meals <180 mg/dL all other times of the day. Blood CAPILLARY BLOOD / Unknown 05/21/2024 7:49 PM EDT 05/21/2024 7:49 PM EDT Saba Spears MD POINT OF CARE TEST ORDERABLES Performing Organization Address [facility] Co de Phone Number [facility] [place] [address] * POC, GLUCOSE (05/21/2024 5:18 PM EDT) Glucometer, POC 152 65 - 199 mg/dL 05/21/2024 5:[address] [facility] Comment:Supplemental ranges: <140 mg/dL before meals <180 mg/dL all other times of the day. Blood CAPILLARY BLOOD / Unknown 05/21/2024 5:18 PM EDT 05/21/2024 5:18 PM EDT Saba Spears MD POINT OF CARE TEST ORDERABLES Performing Organization Address City/[facility]/ZIP Co de Phone Number [facility] [place] [address] * (ABNORMAL) Hemogram (05/21/2024 3:00 PM EDT) White Blood Cell 14.25(H) 4.00 - 9.50 x10(3)/mc L 05/21/2024 3:[address] [facility] Red Blood Cell 2.61(L) 4.58 - 5.54 x10(6)/mc L 05/21/2024 3:[address] [facility] Hemoglobin 7.8(L) 13.7 - 16.5 g/dL 05/21/2024 3:[address] [facility] Hematocrit 24.5(L) 40.5 - 48.5 % 05/21/2024 3:[address] [facility] Mean Cell Volume 93.9(H) 82.9 - 93.1 fL 05/21/2024 3:[address] [facility] Mean Cell Hemoglobin 29.9 27.5 - 32.1 pg 05/21/2024 3:[address] [facility] Mean Cell Hemoglobin Concentration 31.8(L) 32.0 - 35.7 g/dL 05/21/2024 3:[address] [facility] Platelet 456(H) 145 - 357 x10(3)/mc L 05/21/2024 3:[address] [facility] Mean Platelet Volume 11.1 7.6 - 12.9 fL 05/21/2024 3:[address] [facility] RDW Standard Deviation 55.2(H) 36.0 - 45.0 fL 05/21/2024 3:[address] [facility] RDW coefficient of variation 16.1(H) 11.4 - 13.8 % 05/21/2024 3:[address] [facility] NRBC% auto 0.0 % 05/21/2024 3:[address] [facility] NRBC Absolute 0.00 0.00 - 0.00 x10(3)/mc L 05/21/2024 3:[address] [facility] Blood VENOUS BLOOD SPECIMEN / Unknown IP Care Team Draw / Unknown 05/21/2024 3:00 PM EDT 05/21/2024 3:36 PM EDT Saba Spears MD HEMATOLOGY ORDERABL ES [facility] [place] [address] * POC, GLUCOSE (05/21/2024 12:39 PM EDT) Glucometer, POC 144 65 - 199 mg/dL 05/21/2024 12:[address] [facility] Comment:Supplemental ranges: <140 mg/dL before meals <180 mg/dL all other times of the day. Blood CAPILLARY BLOOD / Unknown 05/21/2024 12:39 PM EDT 05/21/2024 12:39 PM EDT Saba Spears MD POINT OF CARE TEST ORDERABLES [facility] [place] [address] * IR Tunneled Central Venous Access Non-Dialysis [...] and osteomyelitis s/p 2ng toe amputation requiring residential IV antibiotic administration who presents to Interventional [...] guidance and a 4Fr sheath placed. ??[address] injection compatible single lumen catheter was [...] POC, GLUCOSE (05/21/2024 9:12 AM EDT) Pathologist Peak Glucometer, POC 144 65 - 199 mg/dL 05/21/2024 9:[address] [facility] Comment:Supplemental ranges: <140 mg/dL before meals <180 mg/dL all other times of the day. Blood CAPILLARY BLOOD / Unknown 05/21/2024 9:12 AM EDT 05/21/2024 9:12 AM EDT Saba Spears MD POINT OF CARE TEST ORDERABLES [facility] [place] [address] * POC, GLUCOSE (05/21/2024 8:32 AM EDT) Pathologist Peak Glucometer, POC 135 65 - 199 mg/dL 05/21/2024 8:[address] [facility] Comment:Supplemental ranges: <140 mg/dL before meals <180 mg/dL all other times of the day. Blood CAPILLARY BLOOD / Unknown 05/21/2024 8:32 AM EDT 05/21/2024 8:32 AM EDT Saba Spears MD POINT OF CARE TEST ORDERABLES [facility] [place] [address] * (ABNORMAL) Hemogram (05/21/2024 8:27 AM EDT) White Blood Cell 15.77(H) 4.00 - 9.50 x10(3)/mc L 05/21/2024 8:[address] [facility] Red Blood Cell 2.47(L) 4.58 - 5.54 x10(6)/mc L 05/21/2024 8:[address] [facility] Hemoglobin 7.5(L) 13.7 - 16.5 g/dL 05/21/2024 8:[address] [facility] Hematocrit 23.0(L) 40.5 - 48.5 % 05/21/2024 8:[address] [facility] Mean Cell Volume 93.1 82.9 - 93.1 fL 05/21/2024 8:[address] [facility] Mean Cell Hemoglobin 30.4 27.5 - 32.1 pg 05/21/2024 8:[address] [facility] Mean Cell Hemoglobin Concentration 32.6 32.0 - 35.7 g/dL 05/21/2024 8:[address] [facility] Platelet 398(H) 145 - 357 x10(3)/mc L 05/21/2024 8:[address] [facility] Mean Platelet Volume 10.8 7.6 - 12.9 fL 05/21/2024 8:[address] [facility] RDW Standard Deviation 54.6(H) 36.0 - 45.0 fL 05/21/2024 8:[address] [facility] RDW coefficient of variation 16.1(H) 11.4 - 13.8 % 05/21/2024 8:[address] [facility] NRBC% auto 0.0 % 05/21/2024 8:[address] [facility] NRBC Absolute 0.00 0.00 - 0.00 x10(3)/mc L 05/21/2024 8:[address] [facility] Blood VENOUS BLOOD SPECIMEN / Unknown IP Care Team Draw / Unknown 05/21/2024 8:27 AM EDT 05/21/2024 8:42 AM EDT Saba Spears MD HEMATOLOGY ORDERABL ES Performing Organization Address City/[facility]/ZIP Co de Phone Number [facility] [place] [address] * (ABNORMAL) CRP, acute inflammation (05/21/2024 4:58 AM EDT) C-Reactive Protein 14.1(H) <=4.9 mg/L 05/21/2024 10:[address] [facility] Blood VENOUS BLOOD SPECIMEN / Unknown IP Care Team Draw / Unknown 05/21/2024 4:58 AM EDT 05/21/2024 5:17 AM EDT Saba Spears MD CHEMISTRY ORDERABLE S [facility] [place] [address] * Magnesium (05/21/2024 4:58 AM EDT) Magnesium 0.99 0.69 - 1.07 mMol/L 05/21/2024 5:[address] [facility] Blood VENOUS BLOOD SPECIMEN / Unknown IP Care Team Draw / Unknown 05/21/2024 4:58 AM EDT 05/21/2024 5:17 AM EDT Mary De La Fuente MD CHEMISTRY ORDERABL ES Performing Organization Address [facility] Co de Phone Number [facility] [place] [address] * (ABNORMAL) Phosphorus (05/21/2024 4:58 AM EDT) Phosphorus 6.2(H) 2.5 - 4.5 mg/dL 05/21/2024 5:[address] [facility] Blood VENOUS BLOOD SPECIMEN / Unknown IP Care Team Draw / Unknown 05/21/2024 4:58 AM EDT 05/21/2024 5:17 AM EDT Mary De La Fuente MD CHEMISTRY ORDERABL ES Performing Organization Address [facility] Co de Phone Number [facility] [place] [address] * (ABNORMAL) Basic Metabolic Panel (05/21/2024 4:58 AM EDT) Glucose 151 65 - 199 mg/dL 05/21/2024 5:[address] [facility] Comment:Glucose Concentratio n >=200 mg/dL plus symptoms is consistent with Diabetes Mellitus. Blood Urea Nitrogen 110(H) 10 - 20 mg/dL 05/21/2024 5:[address] [facility] Creatinine 3.04(H) 0.80 - 1.50 mg/dL 05/21/2024 5:[address] [facility] Sodium 138 135 - 145 mMol/L 05/21/2024 5:[address] [facility] Potassium 5.1(H) 3.5 - 5.0 mMol/L 05/21/2024 5:[address] [facility] Chloride 111(H) 98 - 107 mMol/L 05/21/2024 5:[address] [facility] Carbon Dioxide 18(L) 22 - 31 mMol/L 05/21/2024 5:[address] [facility] Anion Gap 9 5 - 15 mMol/L 05/21/2024 5:[address] [facility] Calcium 9.4 8.5 - 10.5 mg/dL 05/21/2024 5:[address] [facility] Est Glomerular Filtration Rate - Male 21 mL/min/1. 73 m?? 05/21/2024 5:[address] [facility] Comment: This patient's estimated GFR [...] Fasting Status No 05/21/2024 5:[address] [facility] Blood VENOUS BLOOD SPECIMEN / Unknown IP Care Team Draw / Unknown 05/21/2024 4:58 AM EDT 05/21/2024 5:17 AM EDT Mary De La Fuente MD CHEMISTRY ORDERABL ES [facility] [place] [address] * (ABNORMAL) CBC (with Diff) (05/21/2024 4:58 AM EDT) White Blood Cell 14.49(H) 4.00 - 9.50 x10(3)/mc L 05/21/2024 5:[address] [facility] Red Blood Cell 2.54(L) 4.58 - 5.54 x10(6)/mc L 05/21/2024 5:28 [address] [facility] Hemoglobin 7.5(L) 13.7 - 16.5 g/dL 05/21/2024 5:28 AM [facility] Hematocrit 23.6(L) 40.5 - 48.5 % 05/21/2024 5:28 AM [facility] Mean Cell Volume 92.9 82.9 - 93.1 fL 05/21/2024 5:28 AM [facility] Mean Cell Hemoglobin 29.5 27.5 - 32.1 pg 05/21/2024 5:28 AM [facility] Mean Cell Hemoglobin Concentration 31.8(L) 32.0 - 35.7 g/dL 05/21/2024 5:28 AM [facility] Platelet 388(H) 145 - 357 x10(3)/mc L 05/21/2024 5:28 AM [facility] Mean Platelet Volume 10.8 7.6 - 12.9 fL 05/21/2024 5:28 AM [facility] RDW Standard Deviation 53.6(H) 36.0 - 45.0 fL 05/21/2024 5:28 AM [facility] RDW coefficient of variation 16.0(H) 11.4 - 13.8 % 05/21/2024 5:28 AM [facility] NRBC% auto 0.0 % 05/21/2024 5:28 AM [facility] NRBC Absolute 0.00 0.00 - 0.00 x10(3)/mc L 05/21/2024 5:28 AM [facility] Neutrophil % 81.6 % 05/21/2024 5:28 AM [facility] Neutrophil Absolute 11.83(H) 1.70 - 6.10 x10(3)/mc L 05/21/2024 5:28 AM [facility] Lymph % 6.1 % 05/21/2024 5:28 AM [facility] Lymph Absolute 0.89(L) 0.90 - 3.20 x10(3)/mc L 05/21/2024 5:[address] [facility] Monocyte % 9.4 % 05/21/2024 5:[address] [facility] Monocyte Absolute 1.36(H) 0.30 - 0.90 x10(3)/mc L 05/21/2024 5:[address] [facility] Eos % 2.1 % 05/21/2024 5:[address] [facility] Eos Absolute 0.30 0.00 - 0.40 x10(3)/mc L 05/21/2024 5:[address] [facility] Basophil % 0.2 % 05/21/2024 5:[address] [facility] Baso Absolute 0.03 0.00 - 0.10 x10(3)/mc L 05/21/2024 5:[address] [facility] Immature Gran % 0.6 % 5:[address] [facility] Immature Gran Absolute 0.08(H) 0.00 - 0.04 x10(3)/mc L 05/21/2024 5:[address] [facility] Blood VENOUS BLOOD SPECIMEN / Unknown IP Care Team Draw / Unknown 05/21/2024 4:58 AM EDT 05/21/2024 5:17 AM EDT Mary De La Fuente MD HEMATOLOGY ORDERAB LES [facility] [place] [address] * POC, GLUCOSE (05/21/2024 3:45 AM EDT) Glucometer, POC 155 65 - 199 mg/dL 05/21/2024 3:[address] [facility] Comment:Supplemental ranges: <140 mg/dL before meals <180 mg/dL all other times of the day. Blood CAPILLARY BLOOD / Unknown 05/21/2024 3:45 AM EDT 05/21/2024 3:46 AM EDT Saba Spears MD POINT OF CARE TEST ORDERABLES [facility] [place] [address] * POC, GLUCOSE (05/20/2024 11:44 PM EDT) Glucometer, POC 132 65 - 199 mg/dL 05/20/2024 11:[address] [facility] Comment:Supplemental ranges: <140 mg/dL before meals <180 mg/dL all other times of the day. Blood CAPILLARY BLOOD / Unknown 05/20/2024 11:44 PM EDT 05/20/2024 11:44 PM EDT Saba Spears MD POINT OF CARE TEST ORDERABLES Performing Organization Address [facility]/ZIP Co de Phone Number [facility] [place] [address] * POC, GLUCOSE (05/20/2024 7:24 PM EDT) Glucometer, POC 166 65 - 199 mg/dL 05/20/2024 7:[address] [facility] Comment:Supplemental ranges: <140 mg/dL before meals <180 mg/dL all other times of the day. Blood CAPILLARY BLOOD / Unknown 05/20/2024 7:24 PM EDT 05/20/2024 7:25 PM EDT Saba Spears MD POINT OF CARE TEST ORDERABLES [facility] [place] [address] * POC, GLUCOSE (05/20/2024 4:24 PM EDT) Glucometer, POC 170 65 - 199 mg/dL 05/20/2024 4:[address] [facility] Comment:Supplemental ranges: <140 mg/dL before meals <180 mg/dL all other times of the day. Blood CAPILLARY BLOOD / Unknown 05/20/2024 4:24 PM EDT 05/20/2024 4:24 PM EDT Saba Spears MD POINT OF CARE TEST ORDERABLES Performing Organization Address City/State/[facility] Co de Phone Number [facility] [place] [address] * (ABNORMAL) Hemogram (05/20/2024 12:35 PM EDT) White Blood Cell 14.66(H) 4.00 - 9.50 x10(3)/mc L 05/20/2024 12:[address] [facility] Red Blood Cell 2.81(L) 4.58 - 5.54 x10(6)/mc L 05/20/2024 12:[address] [facility] Hemoglobin 8.4(L) 13.7 - 16.5 g/dL 05/20/2024 12:[address] [facility] Hematocrit 26.2(L) 40.5 - 48.5 % 05/20/2024 12:[address] [facility] Mean Cell Volume 93.2(H) 82.9 - 93.1 fL 05/20/2024 12:[address] [facility] Mean Cell Hemoglobin 29.9 27.5 - 32.1 pg 05/20/2024 12:[address] [facility] Mean Cell Hemoglobin Concentration 32.1 32.0 - 35.7 g/dL 05/20/2024 12:[address] [facility] Platelet 416(H) 145 - 357 x10(3)/mc L 05/20/2024 12:[address] [facility] Mean Platelet Volume 10.4 7.6 - 12.9 fL 05/20/2024 12:[address] [facility] RDW Standard Deviation 52.9(H) 36.0 - 45.0 fL 05/20/2024 12:[address] [facility] RDW coefficient of variation 15.6(H) 11.4 - 13.8 % 05/20/2024 12:[address] [facility] NRBC% auto 0.0 % 05/20/2024 12:[address] [facility] NRBC Absolute 0.00 0.00 - 0.00 x10(3)/mc L 05/20/2024 12:[address] [facility] Blood VENOUS BLOOD SPECIMEN / Unknown IP Care Team Draw / Unknown 05/20/2024 12:35 PM EDT 05/20/2024 12:43 PM EDT Saba Spears MD HEMATOLOGY ORDERABL ES Performing Organization Address City/[facility]/ZIP Co de Phone Number [facility] [place] [address] * POC, GLUCOSE (05/20/2024 11:52 AM EDT) Glucometer, POC 176 65 - 199 mg/dL 05/20/2024 11:[address] [facility] Comment:Supplemental ranges: <140 mg/dL before meals <180 mg/dL all other times of the day. Blood CAPILLARY BLOOD / Unknown 05/20/2024 11:52 AM EDT 05/20/2024 11:52 AM EDT Saba Spears MD POINT OF CARE TEST ORDERABLES Performing Organization Address City/[facility]/ZIP Co de Phone Number [facility] [place] [address] * US Retroperitoneal Complete (05/20/2024 10:36 AM EDT) Pathologist Peak WORKSTATION ID [id number] RAD Anatomical Region Laterality Modality Abdomen Ultrasound [...] who have questions, please contact the health morning caregiver that requested your imaging first. ?Teofilo Ruiz, Staff Physician Electronically Signed Final Report ?? 05/20/2024 11:36 am Narrative 05/20/2024 11:37 AM EDT Renal ? (Signed Final 05/20/2024 11:36 am) PATIENT INFO: ID #: ? [id number] ?: ??[birth year] (69 yrs)(M) Name: ? JOSSY SHANKS ? Visit Date: 05/20/2024 10:34 am PERFORMED BY: Attending: ?Joseph SOTOMAYOR, Teofilo Flores Resident: ? Kuldeep SOTOMAYOR, Trinidad Wright Performed By: ? Lulu Shin RDMS Referred By: ?SABA SPEARS Location: ? [place] SERVICE(S) PROVIDED: URETRO - Retroperitoneal Complete - [id number] ? [id number] INDICATIONS: CKD, increase BUN TECHNIQUE/SCAN QUALITY: Scan [...] 05/20/2024 11:36 am) PATIENT INFO: ID #: [id number] : [birth year] (69 yrs)(M) Name: JOSSY SHANKS Visit Date: 05/20/2024 10:34 am PERFORMED BY: Attending: Joseph SOTOMAYOR, Teofilo Flores Resident: Trinidad Light MD Performed By: Lulu Shin RDMS Referred By: SABA SPEARS Location: [place] SERVICE(S) PROVIDED: URETRO - Retroperitoneal Complete - [id number] INDICATIONS: CKD, increase BUN TECHNIQUE/SCAN QUALITY: Scan [...] who have questions, please contact the health morning caregiver that requested your imaging first. Teofilo Ruiz, Staff Physician Electronically Signed Final Report 05/20/2024 11:36 am Saba Spears MD IMG US GEN ORDERABL ES * POC, GLUCOSE (05/20/2024 8:03 AM EDT) [facility] Glucometer, POC 180 65 - 199 mg/dL 05/20/2024 8:[address] [facility] Comment:Supplemental ranges: <140 mg/dL before meals <180 mg/dL all other times of the day. Blood CAPILLARY BLOOD / Unknown 05/20/2024 8:03 AM EDT 05/20/2024 8:03 AM EDT Saba Spears MD POINT OF CARE TEST ORDERABLES Performing Organization Address [facility]/ZIP Co de Phone Number [facility] [place] [address] * Magnesium (05/20/2024 4:27 AM EDT) Magnesium 0.99 0.69 - 1.07 mMol/L 05/20/2024 5:[address] [facility] Blood VENOUS BLOOD SPECIMEN / Unknown IP Care Team Draw / Unknown 05/20/2024 4:27 AM EDT 05/20/2024 4:52 AM EDT Mary De La Fuente MD CHEMISTRY ORDERABL ES Performing Organization Address [facility] Co de Phone Number [facility] [place] [address] * (ABNORMAL) Phosphorus (05/20/2024 4:27 AM EDT) Phosphorus 5.1(H) 2.5 - 4.5 mg/dL 05/20/2024 5:[address] [facility] Blood VENOUS BLOOD SPECIMEN / Unknown IP Care Team Draw / Unknown 05/20/2024 4:27 AM EDT 05/20/2024 4:52 AM EDT Mary De La Fuente MD CHEMISTRY ORDERABL ES Performing Organization Address [facility] Co de Phone Number [facility] [place] [address] * (ABNORMAL) Basic Metabolic Panel (non-fasting) (05/20/2024 4:27 AM EDT) Glucose 173 65 - 199 mg/dL 05/20/2024 6:[address] [facility] Comment:Glucose Concentratio n >=200 mg/dL plus symptoms is consistent with Diabetes Mellitus. Blood Urea Nitrogen 121(H) 10 - 20 mg/dL 05/20/2024 6:27 AM [facility] Creatinine 2.78(H) 0.80 - 1.50 mg/dL 05/20/2024 6:27 AM [facility] Sodium 138 135 - 145 mMol/L 05/20/2024 6:27 AM [facility] Potassium 5.4(H) 3.5 - 5.0 mMol/L 05/20/2024 6:27 AM [facility] Chloride 109(H) 98 - 107 mMol/L 05/20/2024 6:27 AM [facility] Carbon Dioxide 18(L) 22 - 31 mMol/L 05/20/2024 6:27 AM [facility] Anion Gap 11 5 - 15 mMol/L 05/20/2024 6:27 AM [facility] Calcium 9.4 8.5 - 10.5 mg/dL 05/20/2024 6:27 AM [facility] Est Glomerular Filtration Rate - Male 24 mL/min/1. 73 m?? 05/20/2024 6:27 AM [facility] Comment: This patient's estimated GFR [...] Foundation Fasting Status No 05/20/2024 6:27 AM [facility] Blood VENOUS BLOOD SPECIMEN / Unknown IP Care Team Draw / Unknown 05/20/2024 4:27 AM EDT 05/20/2024 4:52 AM EDT Mary De La Fuente MD CHEMISTRY ORDERABL ES [facility] [place] [address] * (ABNORMAL) CBC (with Diff) (05/20/2024 4:27 AM EDT) White Blood Cell 15.20(H) 4.00 - 9.50 x10(3)/mc L 05/20/2024 5:[address] [facility] Red Blood Cell 2.69(L) 4.58 - 5.54 x10(6)/mc L 05/20/2024 5:[address] [facility] Hemoglobin 7.9(L) 13.7 - 16.5 g/dL 05/20/2024 5:32 AM [facility] Hematocrit 25.5(L) 40.5 - 48.5 % 05/20/2024 5:[address] [facility] Mean Cell Volume 94.8(H) 82.9 - 93.1 fL 05/20/2024 5:[address] [facility] Mean Cell Hemoglobin 29.4 27.5 - 32.1 pg 05/20/2024 5:32 AM [facility] Mean Cell Hemoglobin Concentration 31.0(L) 32.0 - 35.7 g/dL 05/20/2024 5:[address] [facility] Platelet 403(H) 145 - 357 x10(3)/mc L 05/20/2024 5:[address] [facility] Mean Platelet Volume 10.7 7.6 - 12.9 fL 05/20/[facility]24 [facility] Standard Deviation 54.7(H) 36.0 - 45.0 fL 05/20/2024 5:32 AM [facility] RDW coefficient of variation 15.8(H) 11.4 - 13.8 % 05/20/2024 5:32 AM [facility] NRBC% auto 0.0 % 05/20/2024 5:32 AM [facility] NRBC Absolute 0.00 0.00 - 0.00 x10(3)/mc L 05/20/2024 5:32 AM [facility] Neutrophil % 82.1 % 05/20/2024 5:32 AM [facility] Neutrophil Absolute 12.49(H) 1.70 - 6.10 x10(3)/mc L 05/20/2024 5:32 AM [facility] Lymph % 6.3 % 05/20/2024 5:32 AM [facility] Lymph Absolute 0.96 0.90 - 3.20 x10(3)/mc L 05/20/2024 5:32 AM [facility] Monocyte % 8.7 % 05/20/2024 5:32 AM [facility] Monocyte Absolute 1.32(H) 0.30 - 0.90 x10(3)/mc L 05/20/2024 5:32 AM [facility] Eos % 2.0 % 05/20/2024 5:32 AM [facility] Eos Absolute 0.30 0.00 - 0.40 x10(3)/mc L 05/20/2024 5:32 AM [facility] Basophil % 0.3 % 05/20/2024 5:32 AM [facility] Baso Absolute 0.04 0.00 - 0.10 x10(3)/mc L 05/20/2024 5:32 AM [facility] Immature Gran % 0.6 % 5:32 AM [facility] Immature Gran Absolute 0.09(H) 0.00 - 0.04 x10(3)/mc L 05/20/2024 5:32 AM [facility] Blood VENOUS BLOOD SPECIMEN / Unknown IP Care Team Draw / Unknown 05/20/2024 4:27 AM EDT 05/20/2024 4:52 AM EDT Mary De La Fuente MD HEMATOLOGY ORDERAB LES Performing Organization Address City/[facility] Co de Phone Number [facility] [place] [address] * POC, GLUCOSE (05/20/2024 3:11 AM EDT) Glucometer, POC 163 65 - 199 mg/dL 05/20/2024 3:[address] [facility] Comment:Supplemental ranges: <140 mg/dL before meals <180 mg/dL all other times of the day. Blood CAPILLARY BLOOD / Unknown 05/20/2024 3:11 AM EDT 05/20/2024 3:12 AM EDT Saba Spears MD POINT OF CARE TEST ORDERABLES Performing Organization Address [facility] Co de Phone Number [facility] [place] [address] * POC, GLUCOSE (05/19/2024 11:07 PM EDT) Glucometer, POC 136 65 - 199 mg/dL 05/19/2024 11:[address] [facility] Comment:Supplemental ranges: <140 mg/dL before meals <180 mg/dL all other times of the day. Blood CAPILLARY BLOOD / Unknown 05/19/2024 11:07 PM EDT 05/19/2024 11:07 PM EDT Saba Spears MD POINT OF CARE TEST ORDERABLES Performing Organization Address City/[facility]/ZIP Co de Phone Number [facility] [place] [address] * POC, GLUCOSE (05/19/2024 8:20 PM EDT) Glucometer, POC 150 65 - 199 mg/dL 05/19/2024 8:[address] [facility] Comment:Supplemental ranges: <140 mg/dL before meals <180 mg/dL all other times of the day. Blood CAPILLARY BLOOD / Unknown 05/19/2024 8:20 PM EDT 05/19/2024 8:21 PM EDT Saba Spears MD POINT OF CARE TEST ORDERABLES Performing Organization Address City/[facility]/ZIP Co de Phone Number [facility] [place] [address] * (ABNORMAL) Iron and TIBC (05/19/2024 5:09 PM EDT) Iron 58 45 - 160 mcg/dL 05/19/2024 6:[address] [facility] Unsaturated Iron Binding Capacity 143 110 - 370 mcg/dL 05/19/2024 6:[address] [facility] TIBC 201(L) 250 - 450 mcg/dL 05/19/2024 6:[address] [facility] Iron Saturation 29 20 - 50 % 6:[address] [facility] Blood VENOUS BLOOD SPECIMEN / Unknown IP Care Team Draw / Unknown 05/19/2024 5:09 PM EDT 05/19/2024 5:43 PM EDT Saba Spears MD CHEMISTRY ORDERABLE S Performing Organization Address City/[facility]/ZIP Co de Phone Number [facility] [place] [address] * PTH (05/19/2024 5:09 PM EDT) Parathyroid Hormone 27 15 - 65 pg/mL 05/19/2024 6:[address] [facility] Blood VENOUS BLOOD SPECIMEN / Unknown IP Care Team Draw / Unknown 05/19/2024 5:09 PM EDT 05/19/2024 5:43 PM EDT Saba Spears MD CHEMISTRY ORDERABLE S [facility] [place] [address] * Ferritin (05/19/2024 5:08 PM EDT) Ferritin 191 31 - 409 ng/ml 05/19/2024 6:[address] [facility] Blood VENOUS BLOOD SPECIMEN / Unknown IP Care Team Draw / Unknown 05/19/2024 5:08 PM EDT 05/19/2024 5:43 PM EDT Saba Spears MD CHEMISTRY ORDERABLE S [facility] [place] [address] * POC, GLUCOSE (05/19/2024 3:59 PM EDT) Glucometer, POC 185 65 - 199 mg/dL 05/19/2024 3:[address] [facility] Comment:Supplemental ranges: <140 mg/dL before meals <180 mg/dL all other times of the day. Blood CAPILLARY BLOOD / Unknown 05/19/2024 3:59 PM EDT 05/19/2024 3:59 PM EDT Saba Spears MD POINT OF CARE TEST ORDERABLES [facility] [place] [address] * POC, GLUCOSE (05/19/2024 12:32 PM EDT) Glucometer, POC 143 65 - 199 mg/dL 05/19/2024 12:[address] [facility] Comment:Supplemental ranges: <140 mg/dL before meals <180 mg/dL all other times of the day. Blood CAPILLARY BLOOD / Unknown 05/19/2024 12:32 PM EDT 05/19/2024 12:32 PM EDT Saba Spears MD POINT OF CARE TEST ORDERABLES Performing Organization Address [facility] Co de Phone Number [facility] [place] [address] * POC, GLUCOSE (05/19/2024 8:12 AM EDT) Glucometer, POC 181 65 - 199 mg/dL 05/19/2024 8:[address] [facility] Comment:Supplemental ranges: <140 mg/dL before meals <180 mg/dL all other times of the day. Blood CAPILLARY BLOOD / Unknown 05/19/2024 8:12 AM EDT 05/19/2024 8:13 AM EDT Saba Spears MD POINT OF CARE TEST ORDERABLES Performing Organization Address [facility] Co de Phone Number [facility] [place] [address] * (ABNORMAL) Magnesium (05/19/2024 5:11 AM EDT) Magnesium 1.08(H) 0.69 - 1.07 mMol/L 05/19/2024 5:[address] [facility] Blood VENOUS BLOOD SPECIMEN / Unknown IP Care Team Draw / Unknown 05/19/2024 5:11 AM EDT 05/19/2024 5:30 AM EDT Mary De La Fuente MD CHEMISTRY ORDERABL ES Performing Organization Address City/[facility] Co de Phone Number [facility] [place] [address] * (ABNORMAL) Phosphorus (05/19/2024 5:11 AM EDT) Phosphorus 5.1(H) 2.5 - 4.5 mg/dL 05/19/2024 5:[address] [facility] Blood VENOUS BLOOD SPECIMEN / Unknown IP Care Team Draw / Unknown 05/19/2024 5:11 AM EDT 05/19/2024 5:30 AM EDT Mary De La Fuente MD CHEMISTRY ORDERABL ES [facility] [place] [address] * (ABNORMAL) Basic Metabolic Panel (non-fasting) (05/19/2024 5:11 AM EDT) Glucose 162 65 - 199 mg/dL 05/19/2024 6:[address] [facility] Comment:Glucose Concentratio n >=200 mg/dL plus symptoms is consistent with Diabetes Mellitus. Blood Urea Nitrogen 118(H) 10 - 20 mg/dL 05/19/2024 6:53 AM [facility] Creatinine 2.75(H) 0.80 - 1.50 mg/dL 05/19/2024 6:53 AM [facility] Sodium 136 135 - 145 mMol/L 05/19/2024 6:53 AM [facility] Potassium 5.2(H) 3.5 - 5.0 mMol/L 05/19/2024 6:53 AM [facility] Chloride 108(H) 98 - 107 mMol/L 05/19/2024 6:53 AM [facility] Carbon Dioxide 18(L) 22 - 31 mMol/L 05/19/2024 6:53 AM [facility] Anion Gap 10 5 - 15 mMol/L 05/19/2024 6:53 AM [facility] Calcium 9.3 8.5 - 10.5 mg/dL 05/19/2024 6:53 AM [facility] Est Glomerular Filtration Rate - Male 24 mL/min/1. 73 m?? 05/19/2024 6:53 AM [facility] Comment: This patient's estimated GFR [...] Foundation Fasting Status No 05/19/2024 6:53 AM [facility] Blood VENOUS BLOOD SPECIMEN / Unknown IP Care Team Draw / Unknown 05/19/2024 5:11 AM EDT 05/19/2024 5:30 AM EDT Mary De La Fuente MD CHEMISTRY ORDERABL ES [facility] [place] [address] * (ABNORMAL) CBC (with Diff) (05/19/2024 5:11 AM EDT) White Blood Cell 12.77(H) 4.00 - 9.50 x10(3)/mc L 05/19/2024 5:37 AM [facility] Red Blood Cell 3.11(L) 4.58 - 5.54 x10(6)/mc L 05/19/2024 5:37 AM [facility] Hemoglobin 9.3(L) 13.7 - 16.5 g/dL 05/19/2024 5:37 AM [facility] Hematocrit 28.9(L) 40.5 - 48.5 % 05/19/2024 5:37 AM [facility] Mean Cell Volume 92.9 82.9 - 93.1 fL 05/19/2024 5:37 AM [facility] Mean Cell Hemoglobin 29.9 27.5 - 32.1 pg 05/19/2024 5:37 AM [facility] Mean Cell Hemoglobin Concentration 32.2 32.0 - 35.7 g/dL 05/19/2024 5:37 AM [facility] Platelet 379(H) 145 - 357 x10(3)/mc L 05/19/2024 5:37 AM [facility] Mean Platelet Volume 10.2 7.6 - 12.9 fL 05/19/2024 5:37 AM [facility] RDW Standard Deviation 53.1(H) 36.0 - 45.0 fL 05/19/2024 5:37 AM [facility] RDW coefficient of variation 15.8(H) 11.4 - 13.8 % 05/19/2024 5:37 AM [facility] NRBC% auto 0.0 % 05/19/2024 5:37 AM [facility] NRBC Absolute 0.00 0.00 - 0.00 x10(3)/mc L 05/19/2024 5:37 AM [facility] Neutrophil % 78.9 % 05/19/2024 5:37 AM [facility] Neutrophil Absolute 10.06(H) 1.70 - 6.10 x10(3)/mc L 05/19/2024 5:37 AM [facility] Lymph % 8.1 % 05/19/2024 5:37 AM [facility] Lymph Absolute 1.03 0.90 - 3.20 x10(3)/mc L 05/19/2024 5:37 AM [facility] Monocyte % 10.3 % 05/19/2024 5:37 AM [facility] Monocyte Absolute 1.32(H) 0.30 - 0.90 x10(3)/mc L 05/19/2024 5:37 AM [facility] Eos % 1.6 % 05/19/2024 5:37 AM [facility] Eos Absolute 0.21 0.00 - 0.40 x10(3)/mc L 05/19/2024 5:37 AM [facility] Basophil % 0.2 % 05/19/2024 5:37 AM [facility] Baso Absolute 0.03 0.00 - 0.10 x10(3)/mc L 05/19/2024 5:[address] [facility] Immature Gran % 0.9 % 5:[address] [facility] Immature Gran Absolute 0.12(H) 0.00 - 0.04 x10(3)/mc L 05/19/2024 5:[address] [facility] Blood VENOUS BLOOD SPECIMEN / Unknown IP Care Team Draw / Unknown 05/19/2024 5:11 AM EDT 05/19/2024 5:30 AM EDT Mary De La Fuente MD HEMATOLOGY ORDERAB LES Performing Organization Address City/[facility]/ZIP Co de Phone Number [facility] [place] [address] * POC, GLUCOSE (05/19/2024 3:27 AM EDT) Glucometer, POC 171 65 - 199 mg/dL 05/19/2024 3:[address] [facility] Comment:Supplemental ranges: <140 mg/dL before meals <180 mg/dL all other times of the day. Blood CAPILLARY BLOOD / Unknown 05/19/2024 3:27 AM EDT 05/19/2024 3:28 AM EDT Saba Spears MD POINT OF CARE TEST ORDERABLES [facility] [place] [address] * POC, GLUCOSE (05/19/2024 12:02 AM EDT) Glucometer, POC 183 65 - 199 mg/dL 05/19/2024 12:[address] [facility] Comment:Supplemental ranges: <140 mg/dL before meals <180 mg/dL all other times of the day. Blood CAPILLARY BLOOD / Unknown 05/19/2024 12:02 AM EDT 05/19/2024 12:02 AM EDT Saba Spears MD POINT OF CARE TEST ORDERABLES Performing Organization Address [facility] Co de Phone Number [facility] [place] [address] * (ABNORMAL) POC, GLUCOSE (05/18/2024 8:05 PM EDT) Glucometer, POC 207(H) 65 - 199 mg/dL 05/18/2024 8:[address] [facility] Comment:Supplemental ranges: <140 mg/dL before meals <180 mg/dL all other times of the day. Blood CAPILLARY BLOOD / Unknown 05/18/2024 8:05 PM EDT 05/18/2024 8:06 PM EDT Saba Spears MD POINT OF CARE TEST ORDERABLES Performing Organization Address [facility] Co de Phone Number [facility] [place] [address] * POC, GLUCOSE (05/18/2024 6:14 PM EDT) Glucometer, POC 174 65 - 199 mg/dL 05/18/2024 6:[address] [facility] Comment:Supplemental ranges: <140 mg/dL before meals <180 mg/dL all other times of the day. Blood CAPILLARY BLOOD / Unknown 05/18/2024 6:14 PM EDT 05/18/2024 6:15 PM EDT Saba Spears MD POINT OF CARE TEST ORDERABLES Performing Organization Address City/[facility] Co de Phone Number [facility] [place] [address] * (ABNORMAL) Basic Metabolic Panel (05/18/2024 5:04 PM EDT) Glucose 170 65 - 199 mg/dL 05/18/2024 6:[address] [facility] Comment:Glucose Concentratio n >=200 mg/dL plus symptoms is consistent with Diabetes Mellitus. Blood Urea Nitrogen 116(H) 10 - 20 mg/dL 05/18/2024 6:14 PM [facility] Creatinine 2.64(H) 0.80 - 1.50 mg/dL 05/18/2024 6:14 PM [facility] Sodium 139 135 - 145 mMol/L 05/18/2024 6:14 PM [facility] Potassium 5.4(H) 3.5 - 5.0 mMol/L 05/18/2024 6:14 PM [facility] Chloride 110(H) 98 - 107 mMol/L 05/18/2024 6:14 PM [facility] Carbon Dioxide 17(L) 22 - 31 mMol/L 05/18/2024 6:14 PM [facility] Anion Gap 12 5 - 15 mMol/L 05/18/2024 6:14 PM [facility] Calcium 9.2 8.5 - 10.5 mg/dL 05/18/2024 6:14 PM [facility] Est Glomerular Filtration Rate - Male 25 mL/min/1. 73 m?? 05/18/2024 6:14 PM [facility] Comment: This patient's estimated GFR [...] Foundation Fasting Status No 05/18/2024 6:14 PM [facility] Blood VENOUS BLOOD SPECIMEN / Unknown IP Care Team Draw / Unknown 05/18/2024 5:04 PM EDT 05/18/2024 5:11 PM EDT Saba Spears MD CHEMISTRY ORDERABLE S Performing Organization Address City/[facility]/ZIP Co de Phone Number [facility] [place] [address] * (ABNORMAL) POC, GLUCOSE (05/18/2024 11:45 AM EDT) Glucometer, POC 211(H) 65 - 199 mg/dL 05/18/2024 11:[address] [facility] Comment:Supplemental ranges: <140 mg/dL before meals <180 mg/dL all other times of the day. Blood CAPILLARY BLOOD / Unknown 05/18/2024 11:45 AM EDT 05/18/2024 11:45 AM EDT Saba Spears MD POINT OF CARE TEST ORDERABLES Performing Organization Address [facility]/ZIP Co de Phone Number [facility] [place] [address] * C diff Screen (05/18/2024 11:31 AM EDT) C Diff Interp Negative Negative 05/18/2024 3:[address] [facility] Comment:Clostridioides diffi cile is not present in the specimen. If patient is having diarrhea suspected to be from an infectious cause, then Soap & Water Contact Precautions are still required. If patient is having diarrhea with no suspected infectious cause use standard precautions. C Diff PCR Negative Negative, Indeterminate 05/18/2024 3:[address] [facility] Stool STOOL SPECIMEN / Unknown Non Blood Collection / Unknown 05/18/2024 11:31 AM EDT 05/18/2024 12:09 PM EDT Saba Spears MD MICROBIOLOGY - GENE RAL ORDERABLES Performing Organization Address City/[facility]/ZIP Co de Phone Number [facility] [place] [address] * C Diff PCR (05/18/2024 11:31 AM EDT) Stool STOOL SPECIMEN / Unknown Non Blood Collection / Unknown 05/18/2024 11:31 AM EDT 05/18/2024 12:09 PM EDT Saba Spears MD MICROBIOLOGY - GENE RAL ORDERABLES [facility] [place] [address] * Creatinine, urine, random (05/18/2024 8:57 AM EDT) Creatinine, Urine 44 mg/dL 05/18/2024 9:[address] [facility] Urine URINE SPECIMEN / Unknown Non Blood Collection / Unknown 05/18/2024 8:57 AM EDT 05/18/2024 9:07 AM EDT Saba Spears MD URINE ORDERABLES [facility] [place] [address] * Electrolytes, urine, random (05/18/2024 8:57 AM EDT) Sodium, Urine 50 mMol/L 05/18/2024 12:[address] [facility] Potassium, Urine 13 mMol/L 05/18/2024 12:[address] [facility] Chloride, Urine 35 mMol/L 05/18/2024 12:[address] [facility] Urine URINE SPECIMEN / Unknown Non Blood Collection / Unknown 05/18/2024 8:57 AM EDT 05/18/2024 9:07 AM EDT Saba Spears MD URINE ORDERABLES [facility] [place] [address] * POC, GLUCOSE (05/18/2024 8:34 AM EDT) Glucometer, POC 182 65 - 199 mg/dL 05/18/2024 8:[address] [facility] Comment:Supplemental ranges: <140 mg/dL before meals <180 mg/dL all other times of the day. Blood CAPILLARY BLOOD / Unknown 05/18/2024 8:34 AM EDT 05/18/2024 8:35 AM EDT Saba Spears MD POINT OF CARE TEST ORDERABLES Performing Organization Address [facility] Co de Phone Number [facility] [place] [address] * POC, GLUCOSE (05/18/2024 4:10 AM EDT) Glucometer, POC 163 65 - 199 mg/dL 05/18/2024 4:[address] [facility] Comment:Supplemental ranges: <140 mg/dL before meals <180 mg/dL all other times of the day. Blood CAPILLARY BLOOD / Unknown 05/18/2024 4:10 AM EDT 05/18/2024 4:11 AM EDT Saba Spears MD POINT OF CARE TEST ORDERABLES Performing Organization Address City/[facility]/ZIP Co de Phone Number [facility] [place] [address] * (ABNORMAL) CBC (with Diff) (05/18/2024 4:01 AM EDT) White Blood Cell 9.84(H) 4.00 - 9.50 x10(3)/mc L 05/18/2024 4:[address] [facility] Red Blood Cell 3.24(L) 4.58 - 5.54 x10(6)/mc L 05/18/2024 4:[address] [facility] Hemoglobin 9.6(L) 13.7 - 16.5 g/dL 05/18/2024 4:19 AM [facility] Hematocrit 31.4(L) 40.5 - 48.5 % 05/18/2024 4:19 AM [facility] Mean Cell Volume 96.9(H) 82.9 - 93.1 fL 05/18/2024 4:19 AM [facility] Mean Cell Hemoglobin 29.6 27.5 - 32.1 pg 05/18/2024 4:19 AM [facility] Mean Cell Hemoglobin Concentration 30.6(L) 32.0 - 35.7 g/dL 05/18/2024 4:19 AM [facility] Platelet 335 145 - 357 x10(3)/mc L 05/18/2024 4:19 AM [facility] Mean Platelet Volume 10.3 7.6 - 12.9 fL 05/18/2024 4:19 AM [facility] RDW Standard Deviation 56.4(H) 36.0 - 45.0 fL 05/18/2024 4:19 AM [facility] RDW coefficient of variation 15.7(H) 11.4 - 13.8 % 05/18/2024 4:19 AM [facility] NRBC% auto 0.2 % 05/18/2024 4:19 AM [facility] NRBC Absolute 0.02(H) 0.00 - 0.00 x10(3)/mc L 05/18/2024 4:19 AM [facility] Neutrophil % 76.5 % 05/18/2024 4:19 AM [facility] Neutrophil Absolute 7.52(H) 1.70 - 6.10 x10(3)/mc L 05/18/2024 4:19 AM [facility] Lymph % 8.0 % 05/18/2024 4:19 AM [facility] Lymph Absolute 0.79(L) 0.90 - 3.20 x10(3)/mc L 05/18/2024 4:[address] [facility] Monocyte % 12.5 % 05/18/2024 4:[address] [facility] Monocyte Absolute 1.23(H) 0.30 - 0.90 x10(3)/mc L 05/18/2024 4:[address] [facility] Eos % 1.9 % 05/18/2024 4:[address] [facility] Eos Absolute 0.19 0.00 - 0.40 x10(3)/mc L 05/18/2024 4:[address] [facility] Basophil % 0.2 % 05/18/2024 4:[address] [facility] Baso Absolute 0.02 0.00 - 0.10 x10(3)/mc L 05/18/2024 4:[address] [facility] Immature Gran % 0.9 % 4:[address] [facility] Immature Gran Absolute 0.09(H) 0.00 - 0.04 x10(3)/mc L 05/18/2024 4:[address] [facility] Blood VENOUS BLOOD SPECIMEN / Unknown IP Care Team Draw / Unknown 05/18/2024 4:01 AM EDT 05/18/2024 4:13 AM EDT Mary De La Fuente MD HEMATOLOGY ORDERAB LES Performing Organization Address City/State/[facility] Co de Phone Number [facility] [place] [address] * (ABNORMAL) Magnesium (05/18/2024 4:00 AM EDT) Magnesium 1.09(H) 0.69 - 1.07 mMol/L 05/18/2024 10:[address] [facility] Blood VENOUS BLOOD SPECIMEN / Unknown IP Care Team Draw / Unknown 05/18/2024 4:00 AM EDT 05/18/2024 4:13 AM EDT Mary De La Fuente MD CHEMISTRY ORDERABL ES Performing Organization Address City/[facility]/ZIP Co de Phone Number [facility] [place] [address] * (ABNORMAL) Phosphorus (05/18/2024 4:00 AM EDT) Phosphorus 4.7(H) 2.5 - 4.5 mg/dL 05/18/2024 10:[address] [facility] Blood VENOUS BLOOD SPECIMEN / Unknown IP Care Team Draw / Unknown 05/18/2024 4:00 AM EDT 05/18/2024 4:13 AM EDT Mary De La Fuente MD CHEMISTRY ORDERABL ES Performing Organization Address [facility] Co de Phone Number [facility] [place] [address] * (ABNORMAL) Basic Metabolic Panel (non-fasting) (05/18/2024 4:00 AM EDT) Glucose 144 65 - 199 mg/dL 05/18/2024 10:[address] [facility] Comment:Glucose Concentratio n >=200 mg/dL plus symptoms is consistent with Diabetes Mellitus. Blood Urea Nitrogen 105(H) 10 - 20 mg/dL 05/18/2024 10:[address] [facility] Creatinine 2.69(H) 0.80 - 1.50 mg/dL 05/18/2024 10:[address] [facility] Sodium 134(L) 135 - 145 mMol/L 05/18/2024 10:[address] [facility] Potassium 5.6(H) 3.5 - 5.0 mMol/L 05/18/2024 10:[address] [facility] Chloride 107 98 - 107 mMol/L 05/18/2024 10:[address] [facility] Carbon Dioxide 11(L) 22 - 31 mMol/L 05/18/2024 10:[address] [facility] Anion Gap 16(H) 5 - 15 mMol/L 05/18/2024 10:[address] [facility] Calcium 8.8 8.5 - 10.5 mg/dL 05/18/2024 10:[address] [facility] Est Glomerular Filtration Rate - Male 25 mL/min/1. 73 m?? 05/18/2024 10:[address] [facility] Comment: This patient's estimated GFR [...] Fasting Status No 05/18/2024 10:[address] [facility] Blood VENOUS BLOOD SPECIMEN / Unknown IP Care Team Draw / Unknown 05/18/2024 4:00 AM EDT 05/18/2024 4:13 AM EDT Mary De La Fuente MD CHEMISTRY ORDERABL ES [facility] [place] [address] * (ABNORMAL) POC, GLUCOSE (05/17/2024 11:30 PM EDT) [facility] Signature Glucometer, POC 232(H) 65 - 199 mg/dL 05/17/2024 11:[address] [facility] Comment:Supplemental ranges: <140 mg/dL before meals <180 mg/dL all other times of the day. Blood CAPILLARY BLOOD / Unknown 05/17/2024 11:30 PM EDT 05/17/2024 11:30 PM EDT Saba Spears MD POINT OF CARE TEST ORDERABLES Performing Organization Address City/[facility] Co de Phone Number [facility] [place] [address] * POC, GLUCOSE (05/17/2024 8:12 PM EDT) Glucometer, POC 161 65 - 199 mg/dL 05/17/2024 8:[address] [facility] Comment:Supplemental ranges: <140 mg/dL before meals <180 mg/dL all other times of the day. Blood CAPILLARY BLOOD / Unknown 05/17/2024 8:12 PM EDT 05/17/2024 8:13 PM EDT Saba Spears MD POINT OF CARE TEST ORDERABLES Performing Organization Address [facility] Co de Phone Number [facility] [place] [address] * POC, GLUCOSE (05/17/2024 5:35 PM EDT) Glucometer, POC 167 65 - 199 mg/dL 05/17/2024 5:[address] [facility] Comment:Supplemental ranges: <140 mg/dL before meals <180 mg/dL all other times of the day. Blood CAPILLARY BLOOD / Unknown 05/17/2024 5:35 PM EDT 05/17/2024 5:35 PM EDT Saba Spears MD POINT OF CARE TEST ORDERABLES Performing Organization Address City/[facility]/ZIP Co de Phone Number [facility] [place] [address] * POC, GLUCOSE (05/17/2024 12:50 PM EDT) Glucometer, POC 147 65 - 199 mg/dL 05/17/2024 12:[address] [facility] Comment:Supplemental ranges: <140 mg/dL before meals <180 mg/dL all other times of the day. Blood CAPILLARY BLOOD / Unknown 05/17/2024 12:50 PM EDT 05/17/2024 12:50 PM EDT Saba Spears MD POINT OF CARE TEST ORDERABLES Performing Organization Address [facility]/ZIP Co de Phone Number [facility] [place] [address] * POC, GLUCOSE (05/17/2024 8:20 AM EDT) Glucometer, POC 139 65 - 199 mg/dL 05/17/2024 8:[address] [facility] Comment:Supplemental ranges: <140 mg/dL before meals <180 mg/dL all other times of the day. Blood CAPILLARY BLOOD / Unknown 05/17/2024 8:20 AM EDT 05/17/2024 8:21 AM EDT Treva Diaz MD POINT OF CARE TEST ORDERABLES Performing Organization Address [facility]/ZIP Co de Phone Number [facility] [place] [address] * (ABNORMAL) Magnesium (05/17/2024 5:49 AM EDT) Magnesium 1.14(H) 0.69 - 1.07 mMol/L 05/17/2024 6:[address] [facility] Blood IP Care Team Dra reilly / Nick 05/17/2024 5:49 AM EDT 05/17/2024 6:13 AM EDT Mary De La Fuente MD CHEMISTRY ORDERABL ES Performing Organization Address [facility] Co de Phone Number [facility] [place] [address] * (ABNORMAL) Phosphorus (05/17/2024 5:49 AM EDT) Phosphorus 5.6(H) 2.5 - 4.5 mg/dL 05/17/2024 6:[address] [facility] Blood IP Care Team w / Nick 05/17/2024 5:49 AM EDT 05/17/2024 6:13 AM EDT Mary De La Fuente MD CHEMISTRY ORDERABL ES [facility] [place] [address] * (ABNORMAL) Basic Metabolic Panel (non-fasting) (05/17/2024 5:49 AM EDT) Glucose 131 65 - 199 mg/dL 05/17/2024 6:[address] [facility] Comment:Glucose Concentratio n >=200 mg/dL plus symptoms is consistent with Diabetes Mellitus. Blood Urea Nitrogen 86(H) 10 - 20 mg/dL 05/17/2024 6:[address] [facility] Creatinine 3.07(H) 0.80 - 1.50 mg/dL 05/17/2024 6:[address] [facility] Sodium 134(L) 135 - 145 mMol/L 05/17/2024 6:[address] [facility] Potassium 5.0 3.5 - 5.0 mMol/L 05/17/2024 6:[address] [facility] Chloride 103 98 - 107 mMol/L 05/17/2024 6:58 AM [facility] Carbon Dioxide 21(L) 22 - 31 mMol/L 05/17/2024 6:[address] [facility] Anion Gap 10 5 - 15 mMol/L 05/17/2024 6:[address] [facility] Calcium 8.7 8.5 - 10.5 mg/dL 05/17/2024 6:[address] [facility] Est Glomerular Filtration Rate - Male 21 mL/min/1. 73 m?? 05/17/2024 6:[address] [facility] Comment: This patient's estimated GFR [...] Fasting Status No 05/17/2024 6:[address] [facility] Blood IP Care Team Gia w / Unknown 05/17/2024 5:49 AM EDT 05/17/2024 6:13 AM EDT Mary De La Fuente MD CHEMISTRY ORDERABL ES [facility] [place] [address] * (ABNORMAL) CBC (with Diff) (05/17/2024 5:49 AM EDT) White Blood Cell 8.61 4.00 - 9.50 x10(3)/mc L [facility] Red Blood Cell 3.54(L) 4.58 - 5.54 x10(6)/mc L 05/17/2024 6:28 AM [facility] Hemoglobin 10.5(L) 13.7 - 16.5 g/dL 05/17/2024 6:28 AM [facility] Hematocrit 33.9(L) 40.5 - 48.5 % 05/17/2024 6:[address] [facility] Mean Cell Volume 95.8(H) 82.9 - 93.1 fL 05/17/2024 6:28 AM [facility] Mean Cell Hemoglobin 29.7 27.5 - 32.1 pg 05/17/2024 6:28 AM [facility] Mean Cell Hemoglobin Concentration 31.0(L) 32.0 - 35.7 g/dL 05/17/2024 6:28 AM [facility] Platelet 341 145 - 357 x10(3)/mc L 05/17/2024 6:28 AM [facility] Mean Platelet Volume 10.4 7.6 - 12.9 fL 05/17/2024 6:28 AM [facility] RDW Standard Deviation 56.5(H) 36.0 - 45.0 fL 05/17/2024 6:28 AM [facility] RDW coefficient of variation 15.7(H) 11.4 - 13.8 % 05/17/2024 6:28 AM [facility] NRBC% auto 0.0 % 05/17/2024 6:28 AM [facility] NRBC Absolute 0.00 0.00 - 0.00 x10(3)/mc L 05/17/2024 6:28 AM [facility] Neutrophil % 76.3 % 05/17/2024 6:28 AM [facility] Neutrophil Absolute 6.57(H) 1.70 - 6.10 x10(3)/mc L 05/17/2024 6:28 AM [facility] Lymph % 9.9 % 05/17/2024 6:28 AM [facility] Lymph Absolute 0.85(L) 0.90 - 3.20 x10(3)/mc L 05/17/2024 6:28 AM [facility] Monocyte % 11.7 % 05/17/2024 6:28 AM [facility] Monocyte Absolute 1.01(H) 0.30 - 0.90 x10(3)/mc L 05/17/2024 6:28 AM [facility] Eos % 0.8 % 05/17/2024 6:28 AM [facility] Eos Absolute 0.07 0.00 - 0.40 x10(3)/mc L 05/17/2024 6:28 AM [facility] Basophil % 0.1 % 05/17/2024 6:[address] [facility] Baso Absolute 0.01 0.00 - 0.10 x10(3)/mc L 05/17/2024 6:[address] [facility] Immature Gran % 1.2 % 6:[address] [facility] Immature Gran Absolute 0.10(H) 0.00 - 0.04 x10(3)/mc L 05/17/2024 6:[address] [facility] Blood IP Care Team Dra reilly / Nick 05/17/2024 5:49 AM EDT 05/17/2024 6:13 AM EDT Mary De La Fuente MD HEMATOLOGY ORDERAB LES Performing Organization Address City/[facility]/ZIP Co de Phone Number [facility] [place] [address] * Vancomycin Level, Random (05/17/2024 5:49 AM EDT) Vancomycin, Random 22.4 mg/L 2023 6:[address] [facility] Comment:This level is for de termination of the patient's vancomycin pspi-kqdbv-wnd-curve (AUC) value. Contact the inpatient pharmacy for interpretation. Blood IP Care Team Dra reilly / Nick 05/17/2024 5:49 AM EDT 05/17/2024 6:13 AM EDT Treva iDaz MD CHEMISTRY ORDERABL ES [facility] [place] [address] * POC, GLUCOSE (05/17/2024 3:54 AM EDT) Glucometer, POC 135 65 - 199 mg/dL 05/17/2024 3:[address] [facility] Comment:Supplemental ranges: <140 mg/dL before meals <180 mg/dL all other times of the day. Blood CAPILLARY BLOOD / Unknown 05/17/2024 3:54 AM EDT 05/17/2024 3:55 AM EDT Treva Diaz MD POINT OF CARE TEST ORDERABLES [facility] [place] [address] * POCT Glucose (05/16/2024 11:46 PM EDT) Glucose, POC 148 65 - 199 mg/dL [facility] Comment: Supplemental ranges: <140 mg/dL before meals <180 mg/dL all other times of the day Blood 05/16/2024 11:4 6 PM EDT 05/16/2024 11:46 PM EDT Treva Diaz MD POINT OF CARE TEST ORDERABLES [facility] [place] [address] * POCT Glucose (05/16/2024 9:06 PM EDT) Glucose, POC 191 65 - 199 mg/dL [facility] Comment: Supplemental ranges: <140 mg/dL before meals <180 mg/dL all other times of the day Blood 05/16/2024 9:06 PM EDT 05/16/2024 9:06 PM EDT Treva Diaz MD POINT OF CARE TEST ORDERABLES [facility] [place] [address] * POCT Glucose (05/16/2024 8:04 PM EDT) Glucose, POC 199 65 - 199 mg/dL [facility] Comment: Supplemental ranges: <140 mg/dL before meals <180 mg/dL all other times of the day Blood 05/16/2024 8:04 PM EDT 05/16/2024 8:04 PM EDT Treva Diaz MD POINT OF CARE TEST ORDERABLES [facility] [place] [address] * POCT Glucose (05/16/2024 4:51 PM EDT) Glucose, POC 162 65 - 199 mg/dL [facility] Comment: Supplemental ranges: <140 mg/dL before meals <180 mg/dL all other times of the day Blood 05/16/2024 4:51 PM EDT 05/16/2024 4:51 PM EDT Treva Diaz MD POINT OF CARE TEST ORDERABLES Performing Organization Address City/[facility]/ZIP Co de Phone Number [facility] [place] [address] * POCT Glucose (05/16/2024 12:48 PM EDT) Glucose, POC 153 65 - 199 mg/dL [facility] Comment: Supplemental ranges: <140 mg/dL before meals <180 mg/dL all other times of the day Blood 05/16/2024 12:4 8 PM EDT 05/16/2024 12:48 PM EDT Treva Diaz MD POINT OF CARE TEST ORDERABLES [facility] [place] [address] * POCT Glucose (05/16/2024 8:45 AM EDT) Glucose, POC 165 65 - 199 mg/dL [facility] Comment: Supplemental ranges: <140 mg/dL before meals <180 mg/dL all other times of the day Blood 05/16/2024 8:45 AM EDT 05/16/2024 8:45 AM EDT Treva Diaz MD POINT OF CARE TEST ORDERABLES [facility] [place] [address] * (ABNORMAL) Differential, Automated (05/16/2024 5:14 AM EDT) Neutrophil % 79.4 % [facility] Neutrophil Absolute 9.22(H) 1.70 - 6.10 x10(3)/mc L [facility] Lymph % 6.6 % [facility] Lymphocytes Abs 0.8(L) 0.9 - 3.2 x10(3)/ L [facility] Monocyte % 9.5 % [facility] Monocyte Abs 1.1(H) 0.3 - 0.9 x10(3)/mc L [facility] Eos % 0.0 % [facility] Eosinophils Abs 0.0 0.0 - 0.4 x10(3)/ L [facility] Basophil % 0.2 % [facility] Baso Absolute 0.0 0.0 - 0.1 x10(3)/mc L [facility] Immature Gran % 4.30 % [facility] Comment: Immature granulocytes(IG's)percentage and absolute count will include metamyelocytes, myelocytes, and promyelocytes. Blood smears from CBCs yielding IG's will be scanned manually for concordance. If this scan disagrees with the automated IG or if promyelocytes are noted, a manual differential will be performed. Immature Gran Absolute 0.50(H) 0.00 - 0.04 x10(3)/mc L [facility] Blood 05/16/2024 5:14 AM EDT 05/16/2024 5:38 AM EDT Narrative Resulting Agency Comment Spec In Lab Carlotta Davis MD HEMATOLOGY OR DERABLES Performing Organization Address City/[facility]/[place] [address] * (ABNORMAL) Hemogram (05/16/2024 5:14 AM EDT) White Blood Cell 11.6(H) 4.0 - 9.5 x10(3)/mc L [facility] Red Blood Cell 3.59(L) 4.58 - 5.54 x10(6)/mc L [facility] Hemoglobin 10.5(L) 13.7 - 16.5 g/dL [facility] Hematocrit 33.8(L) 40.5 - 48.5 % [facility] Mean Cell Volume 94.2(H) 82.9 - 93.1 [facility] Mean Cell Hemoglobin 29.2 27.5 - 32.[address] [facility] Mean Cell Hemoglobin Concentration 31.1(L) 32.0 - 35.7 g/dL [facility] Platelet 317 145 - 357 x10(3)/mc L [facility] RDW Standard Deviation 55.1(H) 36.0 - 45.0 [facility] RDW coefficient of variation 15.9(H) 11.4 - 13.8 % [facility] Mean Platelet Volume 10.6 7.6 - 12.9 [facility] NRBC% auto 0.0 % [facility] NRBC Absolute 0.000 0.000 - 0.000 x10(3)/mc L [facility] Blood 05/16/2024 5:14 AM EDT 05/16/2024 5:38 AM EDT Narrative Resulting Agency Comment Spec In Lab Carlotta Davis MD HEMATOLOGY OR DERABLES Performing Organization Address City/[facility]/ZIP Co de Phone Number [facility] [place] [address] * (ABNORMAL) Magnesium (05/16/2024 5:14 AM EDT) Magnesium 1.22(H) 0.69 - 1.07 mmol/L [facility] Blood 05/16/2024 5:14 AM EDT 05/16/2024 5:38 AM EDT Narrative Resulting Agency Comment Spec In Lab Mary De La Fuente MD CHEMISTRY ORDERABL ES Performing Organization Address [facility] Co de Phone Number [facility] [place] [address] * (ABNORMAL) Phosphorus (05/16/2024 5:14 AM EDT) Pathologist [facility] Phosphorus 6.3(H) 2.5 - 4.5 mg/dL [facility] Blood 05/16/2024 5:14 AM EDT 05/16/2024 5:38 AM EDT Narrative Resulting Agency Comment Spec In Lab Mary De La Fuente MD CHEMISTRY ORDERABL ES Performing Organization Address [facility] Co de Phone Number [facility] [place] [address] * (ABNORMAL) Basic Metabolic Panel (non-fasting) (05/16/2024 5:14 AM EDT) Pathologist [facility] Glucose 154 65 - 199 mg/dL [facility] Comment:Diabetes: >=200 mg/d L plus symptoms Blood Urea Nitrogen 74(H) 10 - 20 mg/dL [facility] Creatinine 2.88(H) 0.80 - 1.50 mg/dL [facility] Sodium 133(L) 135 - 145 mmol/L [facility] Potassium 5.0 3.5 - 5.0 mmol/L [facility] Comment: Please note: ??Patients with WBC >100,000 may have falsely elevated Potassium levels. ??For accurate Potassium quantification in these patients send serum separator tube (gold top) for subsequent determinations. ??Contact the Clinical Chemistry Laboratory if there are any questions. Chloride 101 98 - 107 mmol/L [facility] Carbon Dioxide 21(L) 22 - 31 mmol/L [facility] Anion Gap 11 5 - 15 mmol/L [facility] Calcium 8.8 8.5 - 10.5 mg/dL [facility] Est Glomerular Filtration Rate 23(L) >=60 mL/min/1. 73 m?? [facility] Comment: This patient's estimated GFR [...] MD CHEMISTRY ORDERABL ES Performing Organization Address [facility] Co de Phone Number [facility] [place] [address] * Vancomycin Level, Random (05/16/2024 5:14 AM EDT) Vancomycin, Random 29.1 mg/L M [facility] Comment: This level is for determination of the patient's vancomycin mufk-mmjjd-zcw-curve (AUC) value. Contact the inpatient pharmacy for interpretation. Blood 05/16/2024 5:14 AM EDT 05/16/2024 5:38 AM EDT Treva Diaz MD CHEMISTRY ORDERABL ES Performing Organization Address City/[facility]/ZIP Co de Phone Number [facility] [place] [address] * POCT Glucose (05/16/2024 3:53 AM EDT) Glucose, POC 166 65 - 199 mg/dL [facility] Comment: Supplemental ranges: <140 mg/dL before meals <180 mg/dL all other times of the day Blood 05/16/2024 3:53 AM EDT 05/16/2024 3:53 AM EDT Treva iDaz MD POINT OF CARE TEST ORDERABLES [facility] [place] [address] * POCT Glucose (05/15/2024 11:41 PM EDT) Glucose, POC 171 65 - 199 mg/dL [facility] Comment: Supplemental ranges: <140 mg/dL before meals <180 mg/dL all other times of the day Blood 05/15/2024 11:4 1 PM EDT 05/15/2024 11:41 PM EDT Treva Diaz MD POINT OF CARE TEST ORDERABLES [facility] [place] [address] * POCT Glucose (05/15/2024 10:32 PM EDT) Glucose, POC 183 65 - 199 mg/dL [facility] Comment: Supplemental ranges: <140 mg/dL before meals <180 mg/dL all other times of the day Blood 05/15/2024 10:3 2 PM EDT 05/15/2024 10:32 PM EDT Treva Diaz MD POINT OF CARE TEST ORDERABLES [facility] [place] [address] * POCT Glucose (05/15/2024 7:53 PM EDT) Glucose, POC 187 65 - 199 mg/dL [facility] Comment: Supplemental ranges: <140 mg/dL before meals <180 mg/dL all other times of the day Blood 05/15/2024 7:53 PM EDT 05/15/2024 7:53 PM EDT Treva Diaz MD POINT OF CARE TEST ORDERABLES Performing Organization Address [facility]/ZIP Co de Phone Number [facility] [place] [address] * MRSA PCR Screen ([facility]/CGP/APD/NLH) (05/15/2024 4:15 PM EDT) [facility] MRSA PCR Negative Negative [facility] MRSA (Interp) Methicillin-resist ant Staphylococcus aureus (MRSA) is NOT DETECTED The MRSA target DNA sequences (mec and SCC) were not detected within the acceptable ranges using the Xpert MRSA NxG on the GeneXpert Dx System (Filement). This suggests the absence of MRSA in the patient specimen submitted for testing. This test is cleared by the U.S. Food and Drug Administration for clinical use and its performance characteristics have been verified by the [facility] at [facility]. This result does not rule out the presence of any other organisms. Rare false negative results may occur if MRSA is present at low concentrations with much higher concentrations of other organisms including MRSE or S. aureus with an empty SCC cassette. [facility] Comment: [VERIFIED DATE]05.15.24 Verified By:Lupe Jensen (Electronic Signature) Nasopharyngeal Swab 05/15/20 4:15 PM EDT 05/15/2024 6:28 PM EDT Comment:Specimen Type->Nasop haryngeal Swab Narrative Resulting Agency Comment Spec In Lab Treva Diaz MD MOLECULAR ORDERABL ES Performing Organization Address [facility]/ZIP Co de Phone Number [facility] [place] [address] * (ABNORMAL) POCT Glucose (05/15/2024 3:20 PM EDT) Glucose, POC 224(H) 65 - 199 mg/dL [facility] Comment: Supplemental ranges: <140 mg/dL before meals <180 mg/dL all other times of the day Blood 05/15/2024 3:20 PM EDT 05/15/2024 3:20 PM EDT Treva Diaz MD POINT OF CARE TEST ORDERABLES [facility] [place] [address] * (ABNORMAL) POCT Glucose (05/15/2024 11:39 AM EDT) Glucose, POC 213(H) 65 - 199 mg/dL [facility] Comment: Supplemental ranges: <140 mg/dL before meals <180 mg/dL all other times of the day Blood 05/15/2024 11:3 9 AM EDT 05/15/2024 11:39 AM EDT Treva Diaz MD POINT OF CARE TEST ORDERABLES [facility] [place] [address] * POCT Glucose (05/15/2024 8:02 AM EDT) Glucose, POC 190 65 - 199 mg/dL [facility] Comment: Supplemental ranges: <140 mg/dL before meals <180 mg/dL all other times of the day Blood 05/15/2024 8:02 AM EDT 05/15/2024 8:02 AM EDT Treva Diaz MD POINT OF CARE TEST ORDERABLES [facility] [place] [address] * (ABNORMAL) Differential, Automated (05/15/2024 5:12 AM EDT) Neutrophil % 85.3 % [facility] Neutrophil Absolute 11.37(H) 1.70 - 6.10 x10(3)/mc L [facility] Lymph % 3.7 % [facility] Lymphocytes Abs 0.5(L) 0.9 - 3.2 x10(3)/mc L [facility] Monocyte % 9.1 % [facility] Monocyte Abs 1.2(H) 0.3 - 0.9 x10(3)/mc L [facility] Eos % 0.0 % [facility] Eosinophils Abs 0.0 0.0 - 0.4 x10(3)/[facility] Basophil % 0.1 % [facility] Baso Absolute 0.0 0.0 - 0.1 x10(3)/mc L [facility] Immature Gran % 1.80 % [facility] Comment: Immature granulocytes(IG's)percentage and absolute count will include metamyelocytes, myelocytes, and promyelocytes. Blood smears from CBCs yielding IG's will be scanned manually for concordance. If this scan disagrees with the automated IG or if promyelocytes are noted, a manual differential will be performed. Immature Gran Absolute 0.24(H) 0.00 - 0.04 x10(3)/mc L [facility] Blood 05/15/2024 5:12 AM EDT 05/15/2024 5:38 AM EDT Narrative Resulting Agency Comment Spec In Lab Carlotta Davis MD HEMATOLOGY OR DERABLES [facility] [place] [address] * (ABNORMAL) Hemogram (05/15/2024 5:12 AM EDT) White Blood Cell 13.4(H) 4.0 - 9.5 x10(3)/[facility] Red Blood Cell 3.58(L) 4.58 - 5.54 x10(6)/ L [facility] Hemoglobin 10.9(L) 13.7 - 16.5 g/dL [facility] Hematocrit 34.1(L) 40.5 - 48.5 % [facility] Mean Cell Volume 95.3(H) 82.9 - 93.[address] [facility] Mean Cell Hemoglobin 30.4 27.5 - 32.[address] [facility] Mean Cell Hemoglobin Concentration 32.0 32.0 - 35.7 g/dL [facility] Platelet 227 145 - 357 x10(3)/[facility] RDW Standard Deviation 55.8(H) 36.0 - 45.0 [facility] RDW coefficient of variation 15.8(H) 11.4 - 13.8 % [facility] Mean Platelet Volume 10.7 7.6 - 12.9 [facility] NRBC% auto 0.0 % [facility] NRBC Absolute 0.000 0.000 - 0.000 x10(3)/[facility] Blood 05/15/2024 5:12 AM EDT 05/15/2024 5:38 AM EDT Narrative Resulting Agency Comment Spec In Lab Carlotta Davis MD HEMATOLOGY OR DERABLES [facility] [place] [address] * (ABNORMAL) Magnesium (05/15/2024 5:12 AM EDT) Magnesium 1.21(H) 0.69 - 1.07 mmol/L [facility] Blood 05/15/2024 5:12 AM EDT 05/15/2024 5:38 AM EDT Narrative Resulting Agency Comment Spec In Lab Mary De La Fuente MD CHEMISTRY ORDERABL ES Performing Organization Address [facility]/ZIP Co de Phone Number [facility] [place] [address] * (ABNORMAL) Phosphorus (05/15/2024 5:12 AM EDT) Phosphorus 6.5(H) 2.5 - 4.5 mg/dL [facility] Comment:result rechecked-HN Blood 05/15/2024 5:12 AM EDT 05/15/2024 5:38 AM EDT Narrative Resulting Agency Comment Spec In Lab Mary De La Fuente MD CHEMISTRY ORDERABL ES Performing Organization Address [facility] Co de Phone Number [facility] [place] [address] * (ABNORMAL) Basic Metabolic Panel (non-fasting) (05/15/2024 5:12 AM EDT) Glucose 217(H) 65 - 199 mg/dL [facility] Comment:Diabetes: >=200 mg/d L plus symptoms Blood Urea Nitrogen 58(H) 10 - 20 mg/dL [facility] Creatinine 2.46(H) 0.80 - 1.50 mg/dL [facility] Comment:result rechecked-HN Sodium 135 135 - 145 mmol/L [facility] Potassium 5.2(H) 3.5 - 5.0 mmol/L [facility] Comment: Please note: ??Patients with WBC >100,000 may have falsely elevated Potassium levels. ??For accurate Potassium quantification in these patients send serum separator tube (gold top) for subsequent determinations. ??Contact the Clinical Chemistry Laboratory if there are any questions. Chloride 100 98 - 107 mmol/L [facility] Carbon Dioxide 23 22 - 31 mmol/L [facility] Anion Gap 12 5 - 15 mmol/L [facility] Calcium 8.8 8.5 - 10.5 mg/dL [facility] Est Glomerular Filtration Rate 27(L) >=60 mL/min/1. 73 m?? [facility] Comment: This patient's estimated GFR [...] MD CHEMISTRY ORDERABL ES Performing Organization Address City/[facility]/ZIP Co de Phone Number [facility] [place] [address] * (ABNORMAL) POCT Glucose (05/15/2024 4:55 AM EDT) Glucose, POC 223(H) 65 - 199 mg/dL [facility] Comment: Supplemental ranges: <140 mg/dL before meals <180 mg/dL all other times of the day Blood 05/15/2024 4:55 AM EDT 05/15/2024 4:55 AM EDT Treva Diaz MD POINT OF CARE TEST ORDERABLES [facility] [place] [address] * (ABNORMAL) POCT Glucose (05/15/2024 2:51 AM EDT) Glucose, POC 279(H) 65 - 199 mg/dL [facility] Comment: Supplemental ranges: <140 mg/dL before meals <180 mg/dL all other times of the day Blood 05/15/2024 2:51 AM EDT 05/15/2024 2:51 AM EDT Treva Diaz MD POINT OF CARE TEST ORDERABLES [facility] [place] [address] * (ABNORMAL) POCT Glucose (05/14/2024 9:03 PM EDT) Glucose, POC 257(H) 65 - 199 mg/dL [facility] Comment: Supplemental ranges: <140 mg/dL before meals <180 mg/dL all other times of the day Blood 05/14/2024 9:03 PM EDT 05/14/2024 9:03 PM EDT Treva Diaz MD POINT OF CARE TEST ORDERABLES Performing Organization Address City/[facility]/ZIP Co de Phone Number [facility] [place] [address] * (ABNORMAL) POCT Glucose (05/14/2024 7:15 PM EDT) Glucose, POC 207(H) 65 - 199 mg/dL [facility] Comment: Supplemental ranges: <140 mg/dL before meals <180 mg/dL all other times of the day Blood 05/14/2024 7:15 PM EDT 05/14/2024 7:15 PM EDT Treva Diaz MD POINT OF CARE TEST ORDERABLES [facility] [place] [address] * POCT Glucose (05/14/2024 4:47 PM EDT) Glucose, POC 188 65 - 199 mg/dL [facility] Comment: Supplemental ranges: <140 mg/dL before meals <180 mg/dL all other times of the day Blood 05/14/2024 4:47 PM EDT 05/14/2024 4:47 PM EDT Treva iDaz MD POINT OF CARE TEST ORDERABLES Performing Organization Address [facility]/ZIP Co de Phone Number [facility] [place] [address] * POCT Glucose (05/14/2024 1:21 PM EDT) Glucose, POC 163 65 - 199 mg/dL [facility] Comment: Supplemental ranges: <140 mg/dL before meals <180 mg/dL all other times of the day Blood 05/14/2024 1:21 PM EDT 05/14/2024 1:21 PM EDT Treva Diaz MD POINT OF CARE TEST ORDERABLES Performing Organization Address [facility]/ZIP Co de Phone Number [facility] [place] [address] * Anaerobic Culture (05/14/2024 11:33 AM EDT) Anaerobic Culture No anaerobic organisms isolated [facility] Toe 05/14/2024 11:3 3 AM EDT 05/14/2024 12:33 PM EDT Comment:PROXIMAL RIGHT 2ND T OE Narrative Resulting Agency Comment Spec In Lab Gennaro Meyers MD MICROBIOLOGY - GENE RAL ORDERABLES Performing Organization Address [facility]/ZIP Co de Phone Number [facility] [place] [address] * (ABNORMAL) Tissue culture (05/14/2024 11:33 AM EDT) Tissue Culture One colony of Coagulase negative Staphylococcus species(A) [facility] Gram Stain Few Neutrophils seen Rare Gram Positive Cocci in pairs seen Results called to and read back by Dr. Mihaela Galvan ??05/14/24 14:57:00 (A) [facility] Organism Coagulase negative Staphylococcus species(A) [facility] Organism Gram Positive Cocci in pairs(A) [facility] Toe 05/14/2024 11:3 3 AM [...] Sensitive Comment:Gentamicin i s not appropriate for [place]-therapy. Coagulase Negative Staphylococcus species Levofloxacin MICROSCAN METHOD [...] METHOD Sensitive Gennaro Meyers MD MICROBIOLOGY - [facility] ORDERABLES [facility] [place] [address] * Surgical Pathology Report (05/14/2024 11:32 AM EDT) Surgical Pathology Report [id number] ? Location: [id number]; [id number]; A The signing [...] MD, Shima Verified: ??05/20/2024 11:25 Performed at: ??-[facility] Dept. of Pathology, [place] [address] Millinery Copyist: Polly Barnhart MD, FCAP, ??CLIA Certificate: [id number] SPECIMEN(S) SUBMITTED A - RIGHT 2ND TOE, [...] Sections/Processi ng: Blocks submitted for decalcification: A1-A2. [employer] sections in 2 cassettes as follows: ?A1-A2: ??Longitudinal section of digit ??cmk [facility] 05/14/2024 11:3 2 AM EDT Gennaro Meyers MD PATHOLOGY/CYTOLOGY ORDERABLES [facility] [place] [address] * Specimen to Pathology (05/14/2024 11:32 AM EDT) AP Specimen 05/14/2024 11:3 2 AM EDT 05/14/2024 11:[address] [facility] - 05/14/2024 11:32 AM EDT Specimen requisition ordered. ??Separate Pathology report to follow Treva Diaz MD PATHOLOGY/CYTOLOGY ORDERABLES Performing Organization Address City/[facility]/[place] [address] * (ABNORMAL) POCT Glucose (05/14/2024 7:58 AM EDT) [facility] Glucose, POC 203(H) 65 - 199 mg/dL [facility] [place] [place] Comment: Supplemental ranges: <140 mg/dL before meals <180 mg/dL all other times of the day Blood 05/14/2024 7:58 AM EDT 05/14/2024 7:58 AM EDT Treva Diaz MD POINT OF CARE TEST ORDERABLES Performing Organization Address City/[facility]/ZIP Co de Phone Number [facility] [place] [address] * (ABNORMAL) Differential, Automated (05/14/2024 5:01 AM EDT) [facility] Neutrophil % 80.5 % [facility] Neutrophil Absolute 12.45(H) 1.70 - 6.10 x10(3)/mc L [facility] Lymph % 5.5 % [facility] Lymphocytes Abs 0.8(L) 0.9 - 3.2 x10(3)/mc L [facility] Monocyte % 12.6 % [facility] Monocyte Abs 2.0(H) 0.3 - 0.9 x10(3)/mc L [facility] Eos % 0.3 % [facility] Eosinophils Abs 0.0 0.0 - 0.4 x10(3)/mc L [facility] Basophil % 0.2 % [facility] Baso Absolute 0.0 0.0 - 0.1 x10(3)/mc L [facility] Immature Gran % 0.90 % [facility] Comment: Immature granulocytes(IG's)percentage and absolute count will include metamyelocytes, myelocytes, and promyelocytes. Blood smears from CBCs yielding IG's will be scanned manually for concordance. If this scan disagrees with the automated IG or if promyelocytes are noted, a manual differential will be performed. Immature Gran Absolute 0.14(H) 0.00 - 0.04 x10(3)/mc L [facility] Blood 05/14/2024 5:01 AM EDT 05/14/2024 6:02 AM EDT Narrative Resulting Agency Comment Spec In Lab Carlotta Davis MD HEMATOLOGY OR DERABLES [facility] [place] [address] * (ABNORMAL) Hemogram (05/14/2024 5:01 AM EDT) White Blood Cell 15.5(H) 4.0 - 9.5 x10(3)/ L [facility] Red Blood Cell 3.55(L) 4.58 - 5.54 x10(6)/mc L [facility] Hemoglobin 10.8(L) 13.7 - 16.5 g/dL [facility] Hematocrit 32.8(L) 40.5 - 48.5 % [facility] Mean Cell Volume 92.4 82.9 - 93.[address] [facility] Mean Cell Hemoglobin 30.4 27.5 - 32.[address] [facility] Mean Cell Hemoglobin Concentration 32.9 32.0 - 35.7 g/dL [facility] Platelet 190 145 - 357 x10(3)/ L [facility] RDW Standard Deviation 53.2(H) 36.0 - 45.[address] [facility] RDW coefficient of variation 15.6(H) 11.4 - 13.8 % [facility] Mean Platelet Volume 11.2 7.6 - 12.[address] [facility] NRBC% auto 0.0 % [facility] NRBC Absolute 0.000 0.000 - 0.000 x10(3)/mc L [facility] Blood 05/14/2024 5:01 AM EDT 05/14/2024 6:02 AM EDT Narrative Resulting Agency Comment Spec In Lab Carlotta Davis MD HEMATOLOGY OR DERABLES Performing Organization Address [facility] Co de Phone Number [facility] [place] [address] * Magnesium (05/14/2024 5:01 AM EDT) Magnesium 0.98 0.69 - 1.07 mmol/L [facility] Blood 05/14/2024 5:01 AM EDT 05/14/2024 6:02 AM EDT Narrative Resulting Agency Comment Spec In Lab Mary De La Fuente MD CHEMISTRY ORDERABL ES Performing Organization Address [facility] Co de Phone Number [facility] [place] [address] * Phosphorus (05/14/2024 5:01 AM EDT) Phosphorus 2.8 2.5 - 4.5 mg/dL [facility] Blood 05/14/2024 5:01 AM EDT 05/14/2024 6:02 AM EDT Narrative Resulting Agency Comment Spec In Lab Mary De La Fuente MD CHEMISTRY ORDERABL ES Performing Organization Address [facility] Co de Phone Number [facility] [place] [address] * (ABNORMAL) Basic Metabolic Panel (non-fasting) (05/14/2024 5:01 AM EDT) Glucose 172 65 - 199 mg/dL [facility] Comment:Diabetes: >=200 mg/d L plus symptoms Blood Urea Nitrogen 46(H) 10 - 20 mg/dL [facility] Creatinine 1.56(H) 0.80 - 1.50 mg/dL [facility] Sodium 137 135 - 145 mmol/L [facility] Potassium 4.4 3.5 - 5.0 mmol/L [facility] Comment: Please note: ??Patients with WBC >100,000 may have falsely elevated Potassium levels. ??For accurate Potassium quantification in these patients send serum separator tube (gold top) for subsequent determinations. ??Contact the Clinical Chemistry Laboratory if there are any questions. Chloride 105 98 - 107 mmol/L [facility] Carbon Dioxide 22 22 - 31 mmol/L [facility] Anion Gap 10 5 - 15 mmol/L [facility] Calcium 8.7 8.5 - 10.5 mg/dL [facility] Est Glomerular Filtration Rate 47(L) >=60 mL/min/1. 73 m?? [facility] Comment: This patient's estimated GFR [...] De La Fuente MD CHEMISTRY ORDERABL ES [facility] [place] [address] * Vancomycin Level, Random (05/14/2024 5:01 AM EDT) Vancomycin, Random 13.5 mg/L [facility] Comment: This level is for determination of the patient's vancomycin ygze-nxjbj-zyn-curve (AUC) value. Contact the inpatient pharmacy for interpretation. Blood 05/14/2024 5:01 AM EDT 05/14/2024 6:02 AM EDT Treva Diaz MD CHEMISTRY ORDERABL ES [facility] [place] [address] * POCT Glucose (05/13/2024 8:41 PM EDT) Glucose, POC 179 65 - 199 mg/dL [facility] Comment: Supplemental ranges: <140 mg/dL before meals <180 mg/dL all other times of the day Blood 05/13/2024 8:41 PM EDT 05/13/2024 8:41 PM EDT Treva Diaz MD POINT OF CARE TEST ORDERABLES [facility] [place] [address] * POCT Glucose (05/13/2024 6:06 PM EDT) Glucose, POC 135 65 - 199 mg/dL [facility] Comment: Supplemental ranges: <140 mg/dL before meals <180 mg/dL all other times of the day Blood 05/13/2024 6:06 PM EDT 05/13/2024 6:06 PM EDT Treva Diaz MD POINT OF CARE TEST ORDERABLES [facility] [place] [address] * POCT Glucose (05/13/2024 11:12 AM EDT) Glucose, POC 163 65 - 199 mg/dL [facility] Comment: Supplemental ranges: <140 mg/dL before meals <180 mg/dL all other times of the day Blood 05/13/2024 11:1 2 AM EDT 05/13/2024 11:12 AM EDT Treva Diaz MD POINT OF CARE TEST ORDERABLES Performing Organization Address City/[facility]/ZIP Co de Phone Number [facility] [place] [address] * POCT Glucose (05/13/2024 7:47 AM EDT) Glucose, POC 194 65 - 199 mg/dL [facility] Comment: Supplemental ranges: <140 mg/dL before meals <180 mg/dL all other times of the day Blood 05/13/2024 7:47 AM EDT 05/13/2024 7:47 AM EDT Treva Diaz MD POINT OF CARE TEST ORDERABLES Performing Organization Address [facility]/ZIP Co de Phone Number [facility] [place] [address] * Scan, Peripheral Blood (05/13/2024 5:29 AM EDT) Plat estimate Normal [facility] RBC Morphology Abnormal [facility] [place] Cells 1-5 /HPF [facility] Plat, Giant Less than 1 /HPF [facility] Blood 05/13/2024 5:29 AM EDT 05/13/2024 5:49 AM EDT Narrative Resulting Agency Comment Spec In Lab Carlotta Davis MD HEMATOLOGY OR DERABLES Performing Organization Address City/[facility]/ZIP Co de Phone Number [facility] [place] [address] * (ABNORMAL) Differential, Automated (05/13/2024 5:29 AM EDT) [facility] Neutrophil % 81.8 % [facility] Neutrophil Absolute 12.66(H) 1.70 - 6.10 x10(3)/mc L [facility] Lymph % 5.0 % [facility] Lymphocytes Abs 0.8(L) 0.9 - 3.2 x10(3)/mc L [facility] Monocyte % 12.3 % [facility] Monocyte Abs 1.9(H) 0.3 - 0.9 x10(3)/mc L [facility] Eos % 0.2 % [facility] Eosinophils Abs 0.0 0.0 - 0.4 x10(3)/ L [facility] Basophil % 0.1 % [facility] Baso Absolute 0.0 0.0 - 0.1 x10(3)/mc L [facility] Immature Gran % 0.60 % [facility] Comment: Immature granulocytes(IG's)percentage and absolute count will include metamyelocytes, myelocytes, and promyelocytes. Blood smears from CBCs yielding IG's will be scanned manually for concordance. If this scan disagrees with the automated IG or if promyelocytes are noted, a manual differential will be performed. Immature Gran Absolute 0.09(H) 0.00 - 0.04 x10(3)/mc L [facility] Blood 05/13/2024 5:29 AM EDT 05/13/2024 5:49 AM EDT Narrative Resulting Agency Comment Spec In Lab Carlotta Davis MD HEMATOLOGY OR DERABLES [facility] [place] [address] * (ABNORMAL) Hemogram (05/13/2024 5:29 AM EDT) White Blood Cell 15.5(H) 4.0 - 9.5 x10(3)/ L [facility] Red Blood Cell 3.64(L) 4.58 - 5.54 x10(6)/mc L [facility] Hemoglobin 10.9(L) 13.7 - 16.5 g/dL [facility] Hematocrit 33.3(L) 40.5 - 48.5 % [facility] Mean Cell Volume 91.5 82.9 - 93.[address] [facility] Mean Cell Hemoglobin 29.9 27.5 - 32.[address] [facility] Mean Cell Hemoglobin Concentration 32.7 32.0 - 35.7 g/dL [facility] Platelet 186 145 - 357 x10(3)/[facility] RDW Standard Deviation 53.0(H) 36.0 - 45.0 [facility] RDW coefficient of variation 15.8(H) 11.4 - 13.8 % [facility] Mean Platelet Volume 11.8 7.6 - 12.9 [facility] NRBC% auto 0.0 % [facility] NRBC Absolute 0.000 0.000 - 0.000 x10(3)/[facility] Blood 05/13/2024 5:29 AM EDT 05/13/2024 5:49 AM EDT Narrative Resulting Agency Comment Spec In Lab Carlotta Davis MD HEMATOLOGY OR DERABLES [facility] [place] [address] * Magnesium (05/13/2024 5:29 AM EDT) Pathologist [facility] Magnesium 0.99 0.69 - 1.07 mmol/L [facility] Blood 05/13/2024 5:29 AM EDT 05/13/2024 5:49 AM EDT Narrative Resulting Agency Comment Spec In Lab Mary De La Fuente MD CHEMISTRY ORDERABL ES Performing Organization Address City/[facility]/ZIP Co de Phone Number [facility] [place] [address] * Phosphorus (05/13/2024 5:29 AM EDT) Phosphorus 2.7 2.5 - 4.5 mg/dL [facility] Blood 05/13/2024 5:29 AM EDT 05/13/2024 5:49 AM EDT Narrative Resulting Agency Comment Spec In Lab Mary De La Fuente MD CHEMISTRY ORDERABL ES Performing Organization Address [facility] Co de Phone Number [facility] [place] [address] * (ABNORMAL) Basic Metabolic Panel (non-fasting) (05/13/2024 5:29 AM EDT) Glucose 166 65 - 199 mg/dL [facility] Comment:Diabetes: >=200 mg/d L plus symptoms Blood Urea Nitrogen 57(H) 10 - 20 mg/dL [facility] Creatinine 1.53(H) 0.80 - 1.50 mg/dL [facility] Sodium 137 135 - 145 mmol/L [facility] Potassium 4.4 3.5 - 5.0 mmol/L [facility] Comment: Please note: ??Patients with WBC >100,000 may have falsely elevated Potassium levels. ??For accurate Potassium quantification in these patients send serum separator tube (gold top) for subsequent determinations. ??Contact the Clinical Chemistry Laboratory if there are any questions. Chloride 104 98 - 107 mmol/L [facility] Carbon Dioxide 24 22 - 31 mmol/L [facility] Anion Gap 9 5 - 15 mmol/L [facility] Calcium 8.7 8.5 - 10.5 mg/dL [facility] Est Glomerular Filtration Rate 49(L) >=60 mL/min/1. 73 m?? [facility] Comment: This patient's estimated GFR [...] MD CHEMISTRY ORDERABL ES Performing Organization Address [facility] Co de Phone Number [facility] [place] [address] * POCT Glucose (05/12/2024 11:46 PM EDT) Glucose, POC 165 65 - 199 mg/dL [facility] Comment: Supplemental ranges: <140 mg/dL before meals <180 mg/dL all other times of the day Blood 05/12/2024 11:4 6 PM EDT 05/12/2024 11:46 PM EDT Treva Diaz MD POINT OF CARE TEST ORDERABLES Performing Organization Address City/[facility]/ZIP Co de Phone Number [facility] [place] [address] * POCT Glucose (05/12/2024 8:36 PM EDT) Glucose, POC 164 65 - 199 mg/dL [facility] Comment: Supplemental ranges: <140 mg/dL before meals <180 mg/dL all other times of the day Blood 05/12/2024 8:36 PM EDT 05/12/2024 8:36 PM EDT Treva Diaz MD POINT OF CARE TEST ORDERABLES Performing Organization Address [facility] Co de Phone Number [facility] [place] [address] * POCT Glucose (05/12/2024 5:38 PM EDT) Glucose, POC 175 65 - 199 mg/dL [facility] Comment: Supplemental ranges: <140 mg/dL before meals <180 mg/dL all other times of the day Blood 05/12/2024 5:38 PM EDT 05/12/2024 5:38 PM EDT Treva Diaz MD POINT OF CARE TEST ORDERABLES Performing Organization Address [facility] Co de Phone Number [facility] [place] [address] * Vancomycin Level, Random (05/12/2024 2:10 PM EDT) Vancomycin, Random 22.3 mg/L [facility] Comment: This level is for determination of the patient's vancomycin rmnj-igqao-ncf-curve (AUC) value. Contact the inpatient pharmacy for interpretation. Blood 05/12/2024 2:10 PM EDT 05/12/2024 2:23 PM EDT Treva Diaz MD CHEMISTRY ORDERABL ES Performing Organization Address [facility] Co de Phone Number [facility] [place] [address] * POCT Glucose (05/12/2024 1:42 PM EDT) Glucose, POC 168 65 - 199 mg/dL [facility] Comment: Supplemental ranges: <140 mg/dL before meals <180 mg/dL all other times of the day Blood 05/12/2024 1:42 PM EDT 05/12/2024 1:42 PM EDT Treva Diaz MD POINT OF CARE TEST ORDERABLES Performing Organization Address City/[facility]/ZIP Co de Phone Number [facility] [place] [address] * Duplex for DVT, Leg, Unilat (05/12/2024 10:19 AM EDT) VB Text Report Department: Vascular Surgery Lab Patient: [id number] (JOSSY SHANKS) CPT: [id number] Referring Physician: MARY DE LA FUENTE ?? [...] MD VASCULAR ORDERABLE S Performing Organization Address [facility] Co de Phone Number [id number] * POCT Glucose (05/12/2024 9:00 AM EDT) Glucose, POC 161 65 - 199 mg/dL [facility] Comment: Supplemental ranges: <140 mg/dL before meals <180 mg/dL all other times of the day Blood 05/12/2024 9:00 AM EDT 05/12/2024 9:00 AM EDT Treva Diaz MD POINT OF CARE TEST ORDERABLES Performing Organization Address City/[facility]/ZIP Co de Phone Number [facility] [place] [address] * (ABNORMAL) Sedimentation rate (05/12/2024 4:45 AM EDT) [facility] Sedimentation Rate Automated >119(H) 3 - 46 mm/hr [facility] Comment: Effective September 24, 2019 [...] MD HEMATOLOGY ORDERABLE S Performing Organization Address [facility]/ZIP Co de Phone Number [facility] [place] [address] * (ABNORMAL) CRP, acute inflammation (05/12/2024 4:45 AM EDT) [facility] C-Reactive Protein 152.4(H) <=4.9 mg/L [facility] Blood Venous Draw / Unknown 05/12/2024 4:45 AM EDT 05/12/2024 5:12 AM EDT Narrative Resulting Agency Comment Spec In Lab Juan José Harrison MD CHEMISTRY ORDERABLES Performing Organization Address City/[facility]/ZIP Co de Phone Number [facility] [place] [address] * (ABNORMAL) Differential, Automated (05/12/2024 4:45 AM EDT) [facility] Neutrophil % 87.9 % [facility] Neutrophil Absolute 17.31(H) 1.70 - 6.10 x10(3)/mc L [facility] Lymph % 3.9 % [facility] Lymphocytes Abs 0.8(L) 0.9 - 3.2 x10(3)/mc L [facility] Monocyte % 7.4 % [facility] Monocyte Abs 1.4(H) 0.3 - 0.9 x10(3)/[facility] Eos % 0.0 % [facility] Eosinophils Abs 0.0 0.0 - 0.4 x10(3)/[facility] Basophil % 0.1 % [facility] Baso Absolute 0.0 0.0 - 0.1 x10(3)/[facility] Immature Gran % 0.70 % [facility] Comment: Immature granulocytes(IG's)percentage and absolute count will include metamyelocytes, myelocytes, and promyelocytes. Blood smears from CBCs yielding IG's will be scanned manually for concordance. If this scan disagrees with the automated IG or if promyelocytes are noted, a manual differential will be performed. Immature Gran Absolute 0.14(H) 0.00 - 0.04 x10(3)/[facility] Blood 05/12/2024 4:45 AM EDT 05/12/2024 5:06 AM EDT Narrative Resulting Agency Comment Spec In Lab Carlotta Davis MD HEMATOLOGY OR DERABLES Performing Organization Address City/State/[facility] Co de Phone Number [facility] [place] [address] * (ABNORMAL) Hemogram (05/12/2024 4:45 AM EDT) White Blood Cell 19.7(H) 4.0 - 9.5 x10(3)/ L [facility] Red Blood Cell 3.58(L) 4.58 - 5.54 x10(6)/[facility] Hemoglobin 10.9(L) 13.7 - 16.5 g/dL [facility] Hematocrit 33.1(L) 40.5 - 48.5 % [facility] Mean Cell Volume 92.5 82.9 - 93.[address] [facility] Mean Cell Hemoglobin 30.4 27.5 - 32.[address] [facility] Mean Cell Hemoglobin Concentration 32.9 32.0 - 35.7 g/dL [facility] Platelet 165 145 - 357 x10(3)/mc L [facility] RDW Standard Deviation 53.2(H) 36.0 - 45.[address] [facility] RDW coefficient of variation 15.7(H) 11.4 - 13.8 % [facility] Mean Platelet Volume 12.1 7.6 - 12.[address] [facility] NRBC% auto 0.0 % [facility] NRBC Absolute 0.000 0.000 - 0.000 x10(3)/mc L [facility] Blood 05/12/2024 4:45 AM EDT 05/12/2024 5:06 AM EDT Narrative Resulting Agency Comment Spec In Lab Carlotta Davis MD HEMATOLOGY OR DERABLES [facility] [place] [address] * Magnesium (05/12/2024 4:45 AM EDT) Magnesium 1.07 0.69 - 1.07 mmol/L [facility] Blood 05/12/2024 4:45 AM EDT 05/12/2024 5:06 AM EDT Narrative Resulting Agency Comment Spec In Lab Mary De La Fuente MD CHEMISTRY ORDERABL ES Performing Organization Address City/[facility]/ZIP Co de Phone Number [facility] [place] [address] * Phosphorus (05/12/2024 4:45 AM EDT) Phosphorus 2.7 2.5 - 4.5 mg/dL [facility] Blood 05/12/2024 4:45 AM EDT 05/12/2024 5:06 AM EDT Narrative Resulting Agency Comment Spec In Lab Mary De La Fuente MD CHEMISTRY ORDERABL ES [facility] [place] [address] * (ABNORMAL) Basic Metabolic Panel (non-fasting) (05/12/2024 4:45 AM EDT) Glucose 156 65 - 199 mg/dL [facility] Comment:Diabetes: >=200 mg/d L plus symptoms Blood Urea Nitrogen 72(H) 10 - 20 mg/dL [facility] Creatinine 2.03(H) 0.80 - 1.50 mg/dL [facility] Sodium 135 135 - 145 mmol/L [facility] Potassium 4.5 3.5 - 5.0 mmol/L [facility] Comment: Please note: ??Patients with WBC >100,000 may have falsely elevated Potassium levels. ??For accurate Potassium quantification in these patients send serum separator tube (gold top) for subsequent determinations. ??Contact the Clinical Chemistry Laboratory if there are any questions. Chloride 101 98 - 107 mmol/L [facility] Carbon Dioxide 24 22 - 31 mmol/L [facility] Anion Gap 10 5 - 15 mmol/L [facility] Calcium 8.4(L) 8.5 - 10.5 mg/dL [facility] Est Glomerular Filtration Rate 35(L) >=60 mL/min/1. 73 m?? [facility] Comment: This patient's estimated GFR [...] De La Fuente MD CHEMISTRY ORDERABL ES [facility] [place] [phone] * ANGY, legs, multiple levels (05/12/2024 3:22 AM EDT) VB Text Report Department: Vascular Surgery Lab Patient: [id number] (JOSSY SHANKS) CPT: 64104 Referring Physician: THO DICKSON ?? Phone: Indications: [...] Glucose, POC 201(H) 65 - 199 mg/dL [facility] Comment: Supplemental ranges: <140 mg/dL before meals <180 mg/dL all other times of the day Blood 05/11/2024 8:14 PM EDT 05/11/2024 8:14 PM EDT Treva Diaz MD POINT OF CARE TEST ORDERABLES Performing Organization Address City/[facility] Co de Phone Number [facility] [place] [address] * Vancomycin Level, Random (05/11/2024 8:10 PM EDT) Vancomycin, Random 21.7 mg/L [facility] Comment: This level is for determination of the patient's vancomycin gqma-elgai-qzm-curve (AUC) value. Contact the inpatient pharmacy for interpretation. Blood 05/11/2024 8:10 PM EDT 05/11/2024 8:32 PM EDT Treva Diaz MD CHEMISTRY ORDERABL ES Performing Organization Address [facility] Co de Phone Number [facility] [place] [address] * POCT Glucose (05/11/2024 4:34 PM EDT) Glucose, POC 197 65 - 199 mg/dL [facility] Comment: Supplemental ranges: <140 mg/dL before meals <180 mg/dL all other times of the day Blood 05/11/2024 4:34 PM EDT 05/11/2024 4:34 PM EDT Treva Diaz MD POINT OF CARE TEST ORDERABLES Performing Organization Address [facility] Co de Phone Number [facility] [place] [address] * (ABNORMAL) POCT Glucose (05/11/2024 11:47 AM EDT) Glucose, POC 255(H) 65 - 199 mg/dL [facility] Comment: Supplemental ranges: <140 mg/dL before meals <180 mg/dL all other times of the day Blood 05/11/2024 11:4 7 AM EDT 05/11/2024 11:47 AM EDT Treva Diaz MD POINT OF CARE TEST ORDERABLES Performing Organization Address City/[facility]/ZIP Co de Phone Number [facility] [place] [address] * (ABNORMAL) POCT Glucose (05/11/2024 6:57 AM EDT) Glucose, POC 200(H) 65 - 199 mg/dL [facility] Comment: Supplemental ranges: <140 mg/dL before meals <180 mg/dL all other times of the day Blood 05/11/2024 6:57 AM EDT 05/11/2024 6:57 AM EDT Treva Diaz MD POINT OF CARE TEST ORDERABLES Performing Organization Address City/[facility]/ZIP Co de Phone Number [facility] [place] [address] * (ABNORMAL) Differential, Automated (05/11/2024 2:00 AM EDT) Neutrophil % 85.8 % [facility] Neutrophil Absolute 22.16(H) 1.70 - 6.10 x10(3)/mc L [facility] Lymph % 1.5 % [facility] Lymphocytes Abs 0.4(L) 0.9 - 3.2 x10(3)/mc L [facility] Monocyte % 4.9 % [facility] Monocyte Abs 1.3(H) 0.3 - 0.9 x10(3)/mc L [facility] Eos % 0.0 % [facility] Eosinophils Abs 0.0 0.0 - 0.4 x10(3)/mc L [facility] Basophil % 0.1 % [facility] Baso Absolute 0.0 0.0 - 0.1 x10(3)/[facility] Immature Gran % 7.70 % [facility] Comment: Immature granulocytes(IG's)percentage and absolute count will include metamyelocytes, myelocytes, and promyelocytes. Blood smears from CBCs yielding IG's will be scanned manually for concordance. If this scan disagrees with the automated IG or if promyelocytes are noted, a manual differential will be performed. Immature Gran Absolute 1.98(H) 0.00 - 0.04 x10(3)/[facility] Blood 05/11/2024 2:00 AM EDT 05/11/2024 2:07 AM EDT Narrative Resulting Agency Comment Spec In Lab Carlotta Davis MD HEMATOLOGY OR DERABLES Performing Organization Address City/State/[facility] Co de Phone Number [facility] [place] [address] * (ABNORMAL) Hemogram (05/11/2024 2:00 AM EDT) White Blood Cell 25.8(H) 4.0 - 9.5 x10(3)/[facility] Red Blood Cell 3.64(L) 4.58 - 5.54 x10(6)/ L [facility] Hemoglobin 10.9(L) 13.7 - 16.5 g/dL [facility] Hematocrit 32.5(L) 40.5 - 48.5 % [facility] Mean Cell Volume 89.3 82.9 - 93.[address] [facility] Mean Cell Hemoglobin 29.9 27.5 - 32.[address] [facility] Mean Cell Hemoglobin Concentration 33.5 32.0 - 35.7 g/dL [facility] Platelet 141(L) 145 - 357 x10(3)/[facility] RDW Standard Deviation 51.2(H) 36.0 - 45.[address] [facility] RDW coefficient of variation 15.6(H) 11.4 - 13.8 % [facility] Mean Platelet Volume 12.9 7.6 - 12.[address] [facility] NRBC% auto 0.0 % [facility] NRBC Absolute 0.000 0.000 - 0.000 x10(3)/mc L [facility] Blood 05/11/2024 2:00 AM EDT 05/11/2024 2:07 AM EDT Narrative Resulting Agency Comment Spec In Lab Carlotta Davis MD HEMATOLOGY OR DERABLES Performing Organization Address [facility]/ZIP Co de Phone Number [facility] [place] [address] * Magnesium (05/11/2024 2:00 AM EDT) Magnesium 1.01 0.69 - 1.07 mmol/L [facility] Blood 05/11/2024 2:00 AM EDT 05/11/2024 2:07 AM EDT Narrative Resulting Agency Comment Spec In Lab Mary De La Fuente MD CHEMISTRY ORDERABL ES Performing Organization Address [facility] Co de Phone Number [facility] [place] [address] * Phosphorus (05/11/2024 2:00 AM EDT) Phosphorus 4.0 2.5 - 4.5 mg/dL [facility] Blood 05/11/2024 2:00 AM EDT 05/11/2024 2:07 AM EDT Narrative Resulting Agency Comment Spec In Lab Mary De La Fuente MD CHEMISTRY ORDERABL ES Performing Organization Address City/[facility]/ZIP Co de Phone Number [facility] [place] [address] * (ABNORMAL) Basic Metabolic Panel (non-fasting) (05/11/2024 2:00 AM EDT) Glucose 212(H) 65 - 199 mg/dL [facility] Comment:Diabetes: >=200 mg/d L plus symptoms Blood Urea Nitrogen 72(H) 10 - 20 mg/dL [facility] Creatinine 2.58(H) 0.80 - 1.50 mg/dL [facility] Comment:result rechecked-HN Sodium 136 135 - 145 mmol/L [facility] Potassium 4.7 3.5 - 5.0 mmol/L [facility] Comment: Please note: ??Patients with WBC >100,000 may have falsely elevated Potassium levels. ??For accurate Potassium quantification in these patients send serum separator tube (gold top) for subsequent determinations. ??Contact the Clinical Chemistry Laboratory if there are any questions. Chloride 100 98 - 107 mmol/L [facility] Carbon Dioxide 24 22 - 31 mmol/L [facility] Anion Gap 12 5 - 15 mmol/L [facility] Calcium 8.3(L) 8.5 - 10.5 mg/dL [facility] Est Glomerular Filtration Rate 26(L) >=60 mL/min/1. 73 m?? [facility] Comment: This patient's estimated GFR [...] MD CHEMISTRY ORDERABL ES Performing Organization Address [facility] Co de Phone Number [facility] [place] [address] * Vancomycin Level, Random (05/11/2024 2:00 AM EDT) Vancomycin, Random 21.4 mg/L [facility] Comment: This level is for determination of the patient's vancomycin rihe-bukqi-cdc-curve (AUC) value. Contact the inpatient pharmacy for interpretation. Blood 05/11/2024 2:00 AM EDT 05/11/2024 2:07 AM EDT Mary De La Fuente MD CHEMISTRY ORDERABL ES Performing Organization Address [facility] de Phone Number [facility] [place] [address] * (ABNORMAL) POCT Glucose (05/10/2024 11:40 PM EDT) Glucose, POC 230(H) 65 - 199 mg/dL [facility] Comment: Supplemental ranges: <140 mg/dL before meals <180 mg/dL all other times of the day Blood 05/10/2024 11:4 0 PM EDT 05/10/2024 11:40 PM EDT Treva Diaz MD POINT OF CARE TEST ORDERABLES Performing Organization Address [facility] Co de Phone Number [facility] [place] [address] * POCT Glucose (05/10/2024 4:09 PM EDT) Glucose, POC 189 65 - 199 mg/dL [facility] Comment: Supplemental ranges: <140 mg/dL before meals <180 mg/dL all other times of the day Blood 05/10/2024 4:09 PM EDT 05/10/2024 4:09 PM EDT Treva Diaz MD POINT OF CARE TEST ORDERABLES Performing Organization Address City/[facility]/ZIP Co de Phone Number [facility] [place] [address] * POCT Glucose (05/10/2024 12:11 PM EDT) Glucose, POC 185 65 - 199 mg/dL [facility] Comment: Supplemental ranges: <140 mg/dL before meals <180 mg/dL all other times of the day Blood 05/10/2024 12:1 1 PM EDT 05/10/2024 12:11 PM EDT Mary De La Fuente MD POINT OF CARE TEST ORDERABLES Performing Organization Address [facility] Co de Phone Number [facility] [place] [address] * Vancomycin Level, Random (05/10/2024 12:00 PM EDT) Vancomycin, Random 15.5 mg/L [facility] Comment: This level is for determination of the patient's vancomycin pten-vbotg-hul-curve (AUC) value. Contact the inpatient pharmacy for interpretation. Blood 05/10/2024 12:0 0 PM EDT 05/10/2024 12:21 PM EDT Tho Dickson MD CHEMISTRY ORDERABLES Performing Organization Address [facility] Co de Phone Number [facility] [place] [address] * POCT Glucose (05/10/2024 8:09 AM EDT) Glucose, POC 195 65 - 199 mg/dL [facility] Comment: Supplemental ranges: <140 mg/dL before meals <180 mg/dL all other times of the day Blood 05/10/2024 8:09 AM EDT 05/10/2024 8:09 AM EDT Mary De La Fuente MD POINT OF CARE TEST ORDERABLES [facility] [place] [address] * CK (05/10/2024 6:55 AM EDT) Creatine Kinase 58 0 - 200 unit/L [facility] Blood Venous Draw / Unknown 05/10/2024 6:55 AM EDT 05/10/2024 7:41 AM EDT Narrative Resulting Agency Comment Spec In Lab Emmanuel Corey DO CHEMISTRY ORDERABLES Performing Organization Address [facility] Co de Phone Number [facility] [place] [address] * (ABNORMAL) Phosphorus (05/10/2024 6:55 AM EDT) [facility] Phosphorus 5.1(H) 2.5 - 4.5 mg/dL [facility] Blood 05/10/2024 6:55 AM EDT 05/10/2024 6:59 AM EDT Narrative Resulting Agency Comment Spec In Lab Tho Dickson MD CHEMISTRY ORDERABLES Performing Organization Address [facility] Co de Phone Number [facility] [place] [address] * (ABNORMAL) Basic Metabolic Panel (non-fasting) (05/10/2024 6:55 AM EDT) Pathologist [facility] Glucose 193 65 - 199 mg/dL [facility] Comment:Diabetes: >=200 mg/d L plus symptoms Blood Urea Nitrogen 69(H) 10 - 20 mg/dL [facility] Creatinine 3.75(H) 0.80 - 1.50 mg/dL [facility] Sodium 128(L) 135 - 145 mmol/L [facility] Potassium 5.0 3.5 - 5.0 mmol/L [facility] Comment: Please note: ??Patients with WBC >100,000 may have falsely elevated Potassium levels. ??For accurate Potassium quantification in these patients send serum separator tube (gold top) for subsequent determinations. ??Contact the Clinical Chemistry Laboratory if there are any questions. Chloride 93(L) 98 - 107 mmol/L [facility] Carbon Dioxide 23 22 - 31 mmol/L [facility] Anion Gap 12 5 - 15 mmol/L [facility] Calcium 8.6 8.5 - 10.5 mg/dL [facility] Est Glomerular Filtration Rate 17(L) >=60 mL/min/1. 73 m?? [facility] Comment: This patient's estimated GFR [...] Dickson MD CHEMISTRY ORDERABLES Performing Organization Address City/[facility]/ZIP Co de Phone Number [facility] [place] [address] * Lactate, whole blood, send to lab ([facility] (05/10/2024 6:55 AM EDT) Lactate WB 1.7 0.5 - 2.2 mmol/L [facility] Blood 05/10/2024 6:55 AM EDT 05/10/2024 7:00 AM EDT Narrative Resulting Agency Comment Spec In Lab Tho Dickson MD CHEMISTRY ORDERABLES [facility] [place] [address] * MRI Foot wwo Contrast Right (05/10/2024 5:51 AM EDT) WORKSTATION ID [id number] RAD Anatomical Region Laterality Modality Foot Right [...] who have questions please contact the health morning caregiver that requested your imaging first. ? Narrative [...] patients who have questions please contactthe health morning caregiver that requested your imaging first. Tho Dickson MD IMG MRI ORDERABLES * Creatinine, urine, random (05/10/2024 4:15 AM EDT) Creatinine, Urine 106 mg/dL [facility] Urine 05/10/2024 4:15 AM EDT 05/10/2024 4:23 AM EDT Narrative Resulting Agency Comment Spec In Lab Tho Dickson MD URINE ORDERABLES Performing Organization Address [facility] Co de Phone Number [facility] [place] [address] * Sodium, urine, random (05/10/2024 4:15 AM EDT) Sodium, Urine <20 mmol/L [facility] Urine 05/10/2024 4:15 AM EDT 05/10/2024 4:23 AM EDT Narrative Resulting Agency Comment Spec In Lab Tho Dickson MD URINE ORDERABLES Performing Organization Address [facility]/ZIP Co de Phone Number [facility] [place] [address] * Urea nitrogen, urine, random (05/10/2024 4:15 AM EDT) Urea Nitrogen, Urine 580 mg/dL [facility] Urine 05/10/2024 4:15 AM EDT 05/10/2024 4:23 AM EDT Narrative Resulting Agency Comment Spec In Lab Tho Dickson MD URINE ORDERABLES Performing Organization Address [facility] de Phone Number [facility] [place] [address] * (ABNORMAL) Skin/Superficial Wound Culture Toe (05/10/2024 2:56 AM EDT) Skin/Superfic ial Wound Culture Rare mixed bacterial morphotypes suggestive of normal cutaneous armani including Rare Gram Negative Rods (A) [facility] Gram Stain Many Neutrophils seen Few Gram Positive Cocci seen (A) [facility] Organism Gram Negative Rods(A) [facility] Organism Gram Positive Cocci(A) [facility] Superficial Wound TOE STRUCTURE / Unknown 05/10/2024 2:56 AM EDT 05/10/2024 5:18 AM EDT Comment:Right toe wound Narrative Resulting Agency Comment Spec In Lab Tho Dickson MD MICROBIOLOGY - GENER AL ORDERABLES Performing Organization Address [facility] Co de Phone Number [facility] [place] [address] * (ABNORMAL) Urinalysis without microscopic (05/10/2024 2:42 AM EDT) Glucose, Urine Dipstick Negative Negative mg/dL [facility] Protein, Urine Dipstick 30(A) Negative mg/dL [facility] Bilirubin, Urine Dipstick Negative Negative mg/dL [facility] Comment: Clinical correlation required for positive Urine Bilirubin results as false positive may occur with some drugs and drug related products. If a false positive is suspected a serum total bilirubin should be considered if clinically indicated. Urobilinogen, Urine Dipstick Normal Normal mg/dL [facility] pH, Urn (dipstick) 5.5 5.0 - 8.0 [facility] Blood, Urine Dipstick Large(A) Negative mg/dL [facility] Ketone, Urine Dipstick Negative Negative mg/dL [facility] Nitrite, Urine Dipstick Negative Negative [facility] Leukocytes, Urine Dipstick Small(A) Negative mcL [facility] Appearance, Urine Dipstick Cloudy(A) Clear [facility] Specific [place] Urine Automated 1.017 1.005 - 1.030 [facility] Color, Urine Dipstick [place](A) Yellow [facility] Urine 05/10/2024 2:42 AM EDT 05/10/2024 2:57 AM EDT Narrative Resulting Agency Comment Spec In Lab Tho Dickson MD URINE ORDERABLES [facility] [place] [address] * XR Chest One View (05/10/2024 2:37 AM EDT) Pathologist [facility] WORKSTATION ID [id number] RAD Anatomical Region Laterality Modality Chest N/A Digital Radiogra phy Impressions 05/10/2024 3:27 AM EDT Bibasilar atelectasis. Thank you for letting us participate in the care of this patient. ??If you are a health care provider and have any questions regarding this report, please contact the number below. ??For patients who have questions please contact the health morning caregiver that requested your imaging first. ? Narrative [...] patients who have questions please contactthe health morning caregiver that requested your imaging first. Tho Dickson MD IMG DX ORDERABLES * Blood culture (05/10/2024 2:32 AM EDT) Blood Culture No growth at [address] [facility] Blood STRUCTURE OF RIGHT HAND / Unknown 05/10/2024 2:32 AM EDT 05/10/2024 4:17 AM EDT Narrative Resulting Agency Comment Spec In Lab Tho Dickson MD MICROBIOLOGY - BLOOD ORDERABLES Performing Organization Address [facility] Co de Phone Number [facility] [place] [address] * (ABNORMAL) POCT Glucose (05/10/2024 2:30 AM EDT) [facility] Glucose, POC 201(H) 65 - 199 mg/dL [facility] Comment: Supplemental ranges: <140 mg/dL before meals <180 mg/dL all other times of the day Blood 05/10/2024 2:30 AM EDT 05/10/2024 2:30 AM EDT Tho Dickson MD POINT OF CARE TEST O RDERABLES Performing Organization Address [facility] Co de Phone Number [facility] [place] [address] * Vancomycin Level, Random (05/10/2024 2:20 AM EDT) [facility] Vancomycin, Random 26.9 mg/L M [facility] Comment: This level is for determination of the patient's vancomycin rmqr-dewtk-ucs-curve (AUC) value. Contact the inpatient pharmacy for interpretation. Blood Venous Draw / Unknown 05/10/2024 2:20 AM EDT 05/10/2024 2:38 AM EDT Tho Dickson MD CHEMISTRY ORDERABLES Performing Organization Address [facility]/ZIP Co de Phone Number [facility] [place] [address] * Scan, Peripheral Blood (05/10/2024 2:20 AM EDT) [facility] Plat estimate Normal [facility] RBC Morphology Abnormal [facility] Ovalocytes 1-5 /HPF [facility] [place] Cells 1-5 /HPF [facility] Plat, Giant Less than 1 /HPF [facility] Blood 05/10/2024 2:20 AM EDT 05/10/2024 2:36 AM EDT Narrative Resulting Agency Comment Spec In Lab Anita Camacho MD HEMATOLOGY ORDERABLE S Performing Organization Address City/[facility]/ZIP Co de Phone Number [facility] [place] [address] * Type and Screen Validity (05/10/2024 2:20 AM EDT) T&S only valid at [facility] Comment:This Type and Screen result is only valid at the [facility] Blood 05/10/2024 2:20 AM EDT 05/10/2024 2:49 AM EDT Narrative Resulting Agency Comment Spec In Lab Anita Camacho MD BLOOD BANK LAB ORDER ANGELIQUE Performing Organization Address [facility]/ZIP Co de Phone Number [facility] [place] [address] * ABORH Recheck Status (05/10/2024 2:20 AM EDT) [facility] Recheck Order Order Placed [facility] ABORH Type Recheck Completed [facility] Blood 05/10/2024 2:20 AM EDT 05/10/2024 2:49 AM EDT Narrative Resulting Agency Comment Spec In Lab Anita Camacho MD BLOOD BANK LAB ORDER ANGELIQUE Performing Organization Address City/[facility]/ZIP Co de Phone Number [facility] [place] [address] * (ABNORMAL) Differential, Automated (05/10/2024 2:20 AM EDT) Neutrophil % 89.2 % [facility] Neutrophil Absolute 25.39(H) 1.70 - 6.10 x10(3)/mc L [facility] Lymph % 1.2 % [facility] Lymphocytes Abs 0.4(L) 0.9 - 3.2 x10(3)/mc L [facility] Monocyte % 2.9 % [facility] Monocyte Abs 0.8 0.3 - 0.9 x10(3)/mc L [facility] Eos % 0.0 % [facility] Eosinophils Abs 0.0 0.0 - 0.4 x10(3)/mc L [facility] Basophil % 0.2 % [facility] Baso Absolute 0.1 0.0 - 0.1 x10(3)/ L [facility] Immature Gran % 6.50 % [facility] Comment: Immature granulocytes(IG's)percentage and absolute count will include metamyelocytes, myelocytes, and promyelocytes. Blood smears from CBCs yielding IG's will be scanned manually for concordance. If this scan disagrees with the automated IG or if promyelocytes are noted, a manual differential will be performed. Immature Gran Absolute 1.85(H) 0.00 - 0.04 x10(3)/mc L [facility] Blood 05/10/2024 2:20 AM EDT 05/10/2024 2:36 AM EDT Narrative Resulting Agency Comment Spec In Lab Anita Camacho MD HEMATOLOGY ORDERABLE S [facility] [place] [address] * (ABNORMAL) Hemogram (05/10/2024 2:20 AM EDT) White Blood Cell 28.5(H) 4.0 - 9.5 x10(3)/mc L [facility] Red Blood Cell 3.83(L) 4.58 - 5.54 x10(6)/mc L [facility] Hemoglobin 11.4(L) 13.7 - 16.5 g/dL [facility] Hematocrit 34.5(L) 40.5 - 48.5 % [facility] Mean Cell Volume 90.1 82.9 - 93.[address] [facility] Mean Cell Hemoglobin 29.8 27.5 - 32.[address] [facility] Mean Cell Hemoglobin Concentration 33.0 32.0 - 35.7 g/dL [facility] Platelet 135(L) 145 - 357 x10(3)/mc L [facility] RDW Standard Deviation 51.9(H) 36.0 - 45.[address] [facility] RDW coefficient of variation 15.6(H) 11.4 - 13.8 % [facility] Mean Platelet Volume 12.8 7.6 - 12.9 [facility]ATORY NRBC% auto 0.0 % [facility] NRBC Absolute 0.000 0.000 - 0.000 x10(3)/mc L [facility] Blood 05/10/2024 2:20 AM EDT 05/10/2024 2:36 AM EDT Narrative Resulting Agency Comment Spec In Lab Anita Camacho MD HEMATOLOGY ORDERABLE S [facility] [place] [address] * (ABNORMAL) Hemoglobin A1c (05/10/2024 2:20 AM EDT) Hemoglobin A1c 5.9(H) 4.3 - 5.6 % [facility] Comment: Reference Range: 4.3 - [...] Mellitus, Diabetes Care 2013; 36: Suppl. 1, H67-54 Estimated Average Glucose See note mg/dL [facility] Comment: Estimated Average Glucose not appropriate for patients over 70 years of age. Blood 05/10/2024 2:20 AM EDT 05/10/2024 2:36 AM EDT Narrative Resulting Agency Comment Spec In Lab Tho Dickson MD CHEMISTRY ORDERABLES Performing Organization Address City/[facility] [place] [address] * Hepatic Function Panel (05/10/2024 2:20 AM EDT) Protein, Total 7.6 6.1 - 8.0 g/dL [facility] Albumin 3.3 3.2 - 5.2 g/dL [facility] Aspartate Aminotransferase 21 0 - 39 unit/L [facility] Alanine Aminotransferase 19 0 - 55 unit/L [facility] Alkaline Phosphatase 42 40 - 130 unit/L [facility] Bilirubin, Total 0.5 0.2 - 1.3 mg/dL [facility] Bilirubin, Direct 0.2 0.0 - 0.3 mg/dL [facility] Blood 05/10/2024 2:20 AM EDT 05/10/2024 2:36 AM EDT Narrative Resulting Agency Comment Spec In Lab Tho Dickson MD CHEMISTRY ORDERABLES Performing Organization Address [facility] Co de Phone Number [facility] [place] [address] * (ABNORMAL) Phosphorus (05/10/2024 2:20 AM EDT) Phosphorus 4.6(H) 2.5 - 4.5 mg/dL [facility] Blood 05/10/2024 2:20 AM EDT 05/10/2024 2:36 AM EDT Narrative Resulting Agency Comment Spec In Lab Tho Dickson MD CHEMISTRY ORDERABLES Performing Organization Address City/[facility]/ZIP Co de Phone Number [facility] [place] [address] * Magnesium (05/10/2024 2:20 AM EDT) Magnesium 0.85 0.69 - 1.07 mmol/L [facility] Blood 05/10/2024 2:20 AM EDT 05/10/2024 2:36 AM EDT Narrative Resulting Agency Comment Spec In Lab Tho Dickson MD CHEMISTRY ORDERABLES [facility] [place] [address] * (ABNORMAL) Basic Metabolic Panel (non-fasting) (05/10/2024 2:20 AM EDT) Glucose 196 65 - 199 mg/dL [facility] Comment:Diabetes: >=200 mg/d L plus symptoms Blood Urea Nitrogen 71(H) 10 - 20 mg/dL [facility] Creatinine 3.94(H) 0.80 - 1.50 mg/dL [facility] Sodium 129(L) 135 - 145 mmol/L [facility] Potassium 5.3(H) 3.5 - 5.0 mmol/L [facility] Comment: Please note: ??Patients with WBC >100,000 may have falsely elevated Potassium levels. ??For accurate Potassium quantification in these patients send serum separator tube (gold top) for subsequent determinations. ??Contact the Clinical Chemistry Laboratory if there are any questions. Chloride 93(L) 98 - 107 mmol/L [facility] Carbon Dioxide 24 22 - 31 mmol/L [facility] Anion Gap 12 5 - 15 mmol/L [facility] Calcium 8.5 8.5 - 10.5 mg/dL [facility] Est Glomerular Filtration Rate 16(L) >=60 mL/min/1. 73 m?? [facility] Comment: This patient's estimated GFR [...] Dickson MD CHEMISTRY ORDERABLES Performing Organization Address [facility] Co de Phone Number [facility] [place] [address] * (ABNORMAL) Prothrombin Time (05/10/2024 2:20 AM EDT) Prothrombin Time 27.9(H) 9.4 - 12.[address] [facility] International Normalization Ratio 2.5 [facility] Comment: An INR <2.0 indicates [...] MD HEMATOLOGY ORDERABLE S Performing Organization Address [facility]/ZIP Co de Phone Number [facility] [place] [address] * Type and screen ([facility]/TARA) (05/10/2024 2:20 AM EDT) ABORH Type O POSITIVE [facility] Patient BB History Not Found [facility] Expires at [id number] on: 05-13-2024 [facility] Ab Screen Interp Negative [facility] Blood 05/10/2024 2:20 AM EDT 05/10/2024 2:[address] [facility] - 05/10/2024 2:20 AM EDT This Type and Screen result is only valid at the [facility] Resulting Agency Comment Spec In Lab Tho Dickson MD BLOOD BANK LAB ORDER ANGELIQUE [facility] [place] [address] * (ABNORMAL) Lactate, whole blood, send to lab ([facility] (05/10/2024 2:20 AM EDT) Lactate WB 2.3(H) 0.5 - 2.2 mmol/L [facility] Blood 05/10/2024 2:20 AM EDT 05/10/2024 2:36 AM EDT Narrative Resulting Agency Comment Spec In Lab Tho Dickson MD CHEMISTRY ORDERABLES Performing Organization Address [facility] Co de Phone Number [facility] [place] [address] documented in this encounter Visit Diagnoses Not [...] EVERY 4 HOURS SCHEDULED, First dose on [facility] 05/15/24 at 0400, Until Discontinued, CORRECTION [...] HOURS, First dose (after last modification) on [facility] 05/22/24 at 1230, Until Discontinued, Routine [...] Admin Adt) 0831 (Given - Provider: Juan oJsé Lai, JACKIE) furosemide (Lasix) tablet 40 mg [...] Until Discontinued, Routine 204 (Given - Provider: Alsysa Villalobos RN) 131 ([facility] Hold [...] HOURS, First dose (after last modification) on [place] 05/18/24 at 1430, Until Discontinued, Routine 0258 [...] documented as of this encounter Care Teams Lactation Nurse Relationship 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
--- OUTSIDE RECORDS SUMMARY | 2024-06-06 16:34 | XMS_ITS | Encounter Summary ---
Author Organization [facility] Address [facility] [place] [address] Care Team Providers Care Accounts Receivable Associate Name Role Phone None Primary Care Provider Unavailabl e Encounter Details Date Type Department Care Team (Late st Contact Info) Description 2024 9:25 PM EDT Ancillary Procedure [place] [phone] Tho Reyes MD [facility] [address] Social History Tobacco Use Types Packs/Day Years Used Date Smoking Tobacco: Former Smokeless Tobacco: Never [facility] Inpatient Questions Answer Date Recorded Does Anyone [...] 10:30 AM EDT Office [place] [phone] Elkin Garcia MD [facility] [place] [address] documented as of this encounter Procedures Procedure [...] FILM LIBRARY ORD ERABLES Performing Organization Address City/State/[facility] Co de Phone Number [place], [place] documented in this encounter Visit Diagnoses Not on filedocumented in this encounter Care Teams Accounts Receivable Associate Relationship 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
--- OUTSIDE RECORDS SUMMARY | 2024-06-06 16:34 | XMS_ITS | Encounter Summary ---
Author Organization [facility] Address [facility] [place] [address] Care Team Providers Care Back Winder Name Role Phone None Primary Care Provider Unavailabl e Encounter Details Date Type Department Care Team (Late st Contact Info) Description 2024 9:20 PM EDT Ancillary Procedure [place] [phone] Tho Reyes MD [facility] [place] [address] Social History Tobacco Use Types Packs/Day Years Used Date Smoking Tobacco: Former Smokeless Tobacco: Never [facility] Inpatient Questions Answer Date Recorded [...] 10:30 AM EDT Office [place] [phone] Elkin Garcia MD [facility] [place] [address] documented as of this encounter Procedures Procedure [...] FILM LIBRARY ORD ERABLES Performing Organization Address City/State/[facility] Co de Phone Number [place], [place] documented in this encounter Visit Diagnoses Not on filedocumented in this encounter Care Teams Back Winder Relationship 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
--- OUTSIDE RECORDS SUMMARY | 2024-06-06 16:34 | XMS_ITS | Encounter Summary ---
Author Organization [facility] Address [facility] [place] [address] Care Team Providers Care Production Material Handler Name Role Phone None Primary Care Provider Unavailabl e Encounter Details Date Type Department Care Team (Latest Contact Info) Description 11/26/2017 12:39 PM EST - 11/26/2017 11:59 PM [facility] Hospital Encounter XRay at [address] [place] [address] Navjot Castillo MD [facility] [place] [address] Spinal stenosis of lumbar region, unspecified whether [...] 10:30 AM EDT Office [place] [address] Elkin Garcia MD [facility] DR ORTHOP[place] [address] documented as of this encounter Procedures Procedure [...] present documented in this encounter Care Teams Production Material Handler Relationship 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
--- OUTSIDE RECORDS SUMMARY | 2024-06-06 16:34 | XMS_ITS | Encounter Summary ---
Author Organization [facility] [place] [address] Care Team Providers Care Form Tamper Operator Name Role Phone Cruzito Hager MD Primary Care Provider + Encounter Details Date Type Department Care Team (Latest Contact Info) Description 01/08/2017 - 01/08/2017 11:59 PM EDT Hospital Encounter [place] [address] Navjot Castillo MD [facility] [place] [address] Discharge Disposition: Home Social History Tobacco Use [...] 10:30 AM EDT Office [place] [address] Elkin Garcia MD [facility] DR [place]THOPA[place] [address] documented as of this encounter Procedures Procedure Name Priority Date/Time Associated Diagnosis Comments FILM LIBRARY STORAGE ONLY MR SPINE Routine 01/08/2017 12:00 AM EDT documented in this encounter Results * Film Library- Storage Only MR Spine (01/08/2017 12:00 AM EDT) Narrative [facility] - 09/26/2017 1:39 PM EST This exam is for storage only and is auto-finalizing. Navjot Castillo MD IMG FILM LIBRARY ORD ERABLES [place], [place] documented in this encounter Visit Diagnoses Not on filedocumented in this encounter Care Teams Form Tamper Operator Relationship Specialty Start Date End Date Cruzito Hager MD [address] [facility] [place] [address] PCP - General 09/06/10 07/24/17 documented as of this encounter
--- OUTSIDE RECORDS SUMMARY | 2024-06-06 16:34 | XMS_ITS | Encounter Summary ---
Author Organization [facility] [place] [address] Care Team Providers Care Roving Carrier Name Role Phone Unknown Primary Care Provider Unavailabl e Reason for Referral * Consultation (Routine) - Closed Specialty Diagnoses / Procedures Referred By Contac t Referred To Contact Orthopaedics Diagnoses Degenerative lumbar spinal stenosis Darin Gonzáles MD [facility] [place] [address] Navjot Castillo MD [facility] [place] [address] Referral ID Status Reason Start Date Expiration Date V isits Requested Visits Authorized [id number] Closed Consult, Test & Treat 09/25/2017 09/25/2018 1 1 Reason for Visit * Reason Onset Date Comments Medication Refill 09/25/2017 Encounter Details Date Type Department Care Team (Late st Contact Info) Description 09/25/2017 Refill Pain Management at [place] [phone] Darin Gonzáles MD [facility] [place] [address] Degenerative lumbar spinal stenosis Social History Tobacco [...] 10:30 AM EDT Office [place] [address] Elkin Garcia MD [facility] [place] [address] Scheduled Referrals Name Type Priority Associated Diagnoses Orde r Schedule Referral to Spine Center Outpatient Referral Routine Degenerative lumbar spinal stenosis Ordered: 09/25/2017 documented as of this encounter Visit Diagnoses Diagnosis Degenerative lumbar spinal stenosis Spinal stenosis, lumbar region, without neurogenic claudication documented in this encounter Care Teams Roving Carrier Relationship Specialty Start Date End Date Unknown None PCP - General 07/25/17 11/25/17 documented as of this encounter
[2024-06-06 16:36] LABS: INR 1.2 (0.9-1.1)
[2024-06-06 16:37] LABS: Lactate 0.6 mmol/L (0.6-1.4)
[2024-06-06 16:37] LABS: Diff Comment RBC Morph Reviewed
[2024-06-06 16:38] LABS: Hypochromasia 2+; Polychromasia Present
[2024-06-06 16:39] LABS: HCT 20.1 % (40.0-50.0); HGB 6.3 g/dL (13.5-17.5)
[2024-06-06 16:44] LABS: ALT 17 U/L (16-63); AST 10 U/L (15-37); Albumin 1.7 g/dL (3.4-5.0); Alkaline Phosphatase 112 U/L (46-116); BUN 72 mg/dL (7-18); Bilirubin, Total 0.13 mg/dL (0.2-1.0); Calcium 8.9 mg/dL (8.5-10.1); Chloride 101 mmol/L (98-107); Estimated GFR 14.47 (mL/min/1.73m2); Glucose 151 mg/dL (74-106); Magnesium 1.8 mg/dL (1.8-2.4); NT-proBNP 7467 pg/mL (<300); Sodium 135 mmol/L (136-145); Total Protein 6.9 g/dL (6.4-8.2); Troponin I < 50 ng/L (< or =60)
[2024-06-06 16:45] LABS: CREATININE 4.2 mg/dL (0.70-1.30)
--- NOTE | 2024-06-06 17:04 | ED.GENADUL_ITS ---
Discharge Plan Discharge Details Chief Complaint: GI Bleed Primary Care Provider: Pepe Bill ED Provider: Jennifer Osorio Home Meds and New Rx's Prescriptions: No Action acetaminophen 500 mg tablet 500 mg PO Q6H PRN multivitamin [Daily Vitamin] 1 EACH tablet 1 ea PO DAILY diltiazem HCl 240 MG capsule,ext.rel 24h degradable 240 mg PO DAILY Qty: 90 Xarelto 15 MG tablet 15 mg PO DAILY Qty: 90 Patient Comments: on hold from 06/03 lisinopril 5 mg tablet 5 mg PO DAILY insulin glargine [Lantus Solostar U-100 Insulin] 100 unit/mL (3 mL) insulin pen 15 unit subcut QPM atorvastatin 40 mg tablet 40 mg PO DAILY insulin lispro [Humalog KwikPen Insulin] 100 unit/mL insulin pen 8 unit subcut TID carvedilol 25 mg tablet 25 mg PO BID Rx Instructions: must administer with a meal/food liraglutide 0.6 mg/0.1 mL (18 mg/3 mL) pen injector 1.2 mg subcut DAILY magnesium oxide 400 MG tablet 400 mg PO BID Qty: 60 0RF furosemide [Lasix] 20 mg tablet 40 mg PO BID Qty: 0 0RF (DME) blood-glucose meter [Blood Glucose Monitoring] Kit See Rx Instructions .ROUTE .MEDSUPPLY Qty: 1 0RF Rx Instructions: ac and hs (DME) lancets-blood glucose strips 30 gauge combo pack See Rx Instructions .ROUTE .MEDSUPPLY Qty: 200 0RF Rx Instructions: ac and hs HPI General Mode of arrival: EMS . Date/Time Provider Initiated Documentation: 06/06/24 16:01 . Limitations to Documentation: no limitations . Information obtained by: patient, family and old records reviewed . HPI Narrative: MDM: In brief, this is a 69-year-old male patient with a history of CHF, atrial fibrillation on anticoagulation, hypertension, and a recent history of renal failure with new anemia, coming in with blood in his stool. My differential includes but is not limited to lower GI bleed, likely due to internal hemorrhoidal bleed, diverticular bleed, certainly considered AVM, mass/cancer, mesenteric ischemia. Brisk upper GI bleed was considered, the patient reports no history of GERD or upper GI issues. I considered coagulopathy, anemia, metabolic and electrolyte derangement, worsening of kidney dysfunction. I considered fluid overload, CHF, ACS. The patient appears acutely unwell, but is reassuringly hemodynamically appropriate though tachypneic. We will obtain an EKG, chest x-ray, and a CT scan of his abdomen and pelvis without contrast given his renal injury. I will obtain laboratory studies to include CBC, CMP, lactate, PT/INR, type and screen, Fluvid, troponin, and BNP. ED Course: I reviewed the patient's EKG, which shows an atrial fibrillation with controlled ventricular rate, with no evidence of ischemia, interval abnormality, or ectopy. Laboratory studies were evaluated by myself, with no leukocytosis or thrombocytopenia but a notable decrease in his hemoglobin from last check now to 6.3. I did order a unit of PRBCs, to be transfused slowly given the patient's evidence of fluid overload. INR is 1.2, lactate 0.6, and the chemistry panel demonstrates no significant electrolyte abnormalities, redemonstrates his known renal dysfunction with a BUN of 72 and a creatinine of 4.2, and shows no evidence of liver dysfunction. The troponin is negative but the BNP is slightly increased from priors, 7400 today, consistent with his physical exam evidence of fluid overload. The COVID and flu test were negative, and I did independently interpret the patient's x-ray of his chest, which shows a new left-sided pleural effusion and ongoing vascular prominence concerning for fluid overload due to CHF. His CT abdomen pelvis was obtained, independently interpreted this and there is no acute abnormalities to explain his hematochezia. He does have a large volume of rectal stool but no bowel wall thickening to suggest mesenteric ischemia, no obstruction, no evidence of perforation. Given the fluid overload I provided the patient with a dose of Lasix, 40 mg, and he put out 200 cc of urine. I reached out to [facility] and they have unfortunately declined the patient, citing his normal blood pressure and heart rate I am concerned for his ongoing GI bleed, with worsening anemia requiring transfusion, as well as his evidence of fluid overload, and do not believe that he is an appropriate person for discharge. For this reason I reached out to [facility] who accepted the patient but unfortunately did not have beds until tomorrow. I discussed this patient's case with our hospitalist and our packing house supervisor, and we were able to make some arrangements and an ICU bed was opened up, and the patient was graciously accepted by the hospitalist for admission to our ICU for ongoing fluid management, monitoring of hemoglobin and bleeding, and potential GI intervention. I did provide the patient with a second dose of Lasix given his an adequate urine output to the first dose, 100 mg. The patient endorsed a mild improvement in his lightheadedness after transfusion, and posttransfusion hemoglobin was 7.2. The patient was transferred from our department to the ICU without incident, remained hemodynamically improved though with ongoing tachypnea while under my care. Jennifer Osorio MD HPI: This is a 69-year-old male patient with a complicated mass medical history including HFrEF, atrial fibrillation on anticoagulation, CKD, diabetes, with a recent admission for sepsis due to lower extremity cellulitis and osteomyelitis for which he is on long-term antibiotics, complicated by acute renal failure, as well as new anemia thought to be due to a lower GI bleed. He is brought in by EMS today with a concern for blood in his stool. The patient was seen here in this department a few days ago for evaluation of shortness of breath and new anemia, was at that time found to have a hemoglobin of 7.6, did not meet the transfusion threshold due to his to his lack of endorgan damage or cardiac dysfunction, was largely at his baseline from his work of breathing standpoint, and was discharged back to his rehab facility. Today the patient was noted by the care facility to have a large amount of bright red blood coming from his bottom. The patient reports that he felt worse than typical, with increased weakness and shortness of breath, and was transferred here for an evaluation. Based on chart review it appears that the patient's anticoagulation has been held since the due to a fall, though this is difficult to verify given that the patient is not sure which medications he has been receiving. He has had ongoing kidney dysfunction and takes Lasix for fluid management of his CHF. The patient has not sustained any additional falls, does feel slightly dizzy, has not had chest pain or abdominal pain. He reports that he had either an endoscopy or a colonoscopy done a few weeks ago, has no personal history of colon cancer or GI bleeds but does have known diverticulosis. Exam: Gen: Awake and alert, pale and ill-appearing HEENT: Non-icteric sclera Neck: Supple Lungs: The patient has a moderate increase in his work of breathing with tachypnea, poor air movement CV: Appears well perfused though pale, strong distal pulses, symmetrical bilaterally Abdomen: Non-distended, soft, nontender : Rectal examination supervised by JACKIE Mohan, revealing normal external anus, with dark red blood appreciated per rectum. The patient has a small nonprolapsed internal hemorrhoid. MSK: Moves 4 extremities without apparent limitation in ROM. The patient has 2+ peripheral edema to the level of the proximal shins, with associated redness and induration consistent with his currently treated cellulitis. Skin: Visualized skin cellulitic changes as noted, patient also has bruising to the left side of his face from his fall 3 days ago. Neuro: No obvious focal deficits or facial asymmetry. Speaks in full, clear sentences. Psych: Appropriate for situation. Related Data Home Medications ?Medication ?Instructions ?Recorded ?Confirmed multivitamin (Daily Vitamin tablet) 1 ea PO DAILY 03/20/13 06/06/24 magnesium oxide 400 mg (241.3 mg 400 mg PO BID #60 tabs 06/30/14 06/06/24 magnesium) tablet diltiazem HCl 240 mg 240 mg PO DAILY ##90 07/24/16 06/06/24 capsule,extended release 24 hr, controlled rivaroxaban 15 mg tablet (Xarelto) 15 mg PO DAILY #90 tab-caps 07/24/16 06/06/24 blood-glucose meter (Blood Glucose #1 ea 07/17/20 06/06/24 Monitoring kit) furosemide 20 mg tablet (Lasix) 40 mg (2 x 20 mg) PO BID #0 tabs 07/17/20 06/06/24 lancets 30 gauge and blood glucose #200 ea 07/17/20 06/06/24 strips combo pack atorvastatin 40 mg tablet 40 mg PO DAILY 11/28/22 06/06/24 carvedilol 25 mg tablet 25 mg PO BID 11/28/22 06/06/24 insulin glargine 100 unit/mL (3 15 unit subcut QPM 11/28/22 06/06/24 mL) subcutaneous pen (Lantus Solostar U-100 Insulin) insulin lispro 100 unit/mL 8 unit subcut TID 11/28/22 06/06/24 subcutaneous pen (Humalog KwikPen (U-100) Insulin) liraglutide 0.6 mg/0.1 mL (18 mg/3 1.2 mg subcut DAILY 11/28/22 06/06/24 mL) subcutaneous pen injector lisinopril 5 mg tablet 5 mg PO DAILY 11/28/22 06/06/24 acetaminophen 500 mg tablet 500 mg PO Q6H PRN 12/19/22 06/06/24 Previous Rx's ?Medication ?Instructions ?Recorded magnesium oxide 400 mg (241.3 mg 400 mg PO BID #60 tabs 06/30/14 magnesium) tablet blood-glucose meter (Blood Glucose #1 ea 07/17/20 Monitoring kit) furosemide 20 mg tablet (Lasix) 40 mg (2 x 20 mg) PO BID #0 tabs 07/17/20 lancets 30 gauge and blood glucose #200 ea 07/17/20 strips combo pack Allergies Allergy/AdvReac Type Severity Reaction Status Date / Time No Known Allergies Allergy Verified 06/03/24 20:24 General Stated Complaint: GI Bleed RICKIE: 3 Course Vital Signs Vital signs: Vital Signs Temperature 36.9 C 06/06/24 15:56 Pulse 95 H 06/06/24 15:56 Respiratory Rate 20 06/06/24 15:56 Blood Pressure 131/51 L 06/06/24 15:56 Pulse Oximetry 96 06/06/24 15:56 Temperature 36.9 C 06/06/24 15:56 Pulse 81 06/06/24 16:16 Pulse 90 06/06/24 16:20 Respiratory Rate 30 H 06/06/24 16:20 Respiratory Effort Short of Breath 06/06/24 16:17 Blood Pressure 132/69 06/06/24 16:16 Blood Pressure Mean 90 06/06/24 16:16 Pulse Oximetry 95 06/06/24 16:20 Lab/Test Results Lab/Test Results: Laboratory Tests Range/Units 06/06/24 06/06/24 16:12 16:32 WBC (4.4-10.8) 10^3/uL 7.99 RBC (4.36-5.78) 10^6/uL 2.18 L Hgb (13.5-17.5) g/dL 6.3 L* Hct (40.0-50.0) % 20.1 L* MCV (80-95) fL 92 MCH (27.0-33.0) pg 28.9 MCHC (32.0-36.0) % 31.3 L RDW (11.8-14.1) % 15.9 H Plt Count (130-400) 10^3/uL 266 MPV (8.0-11.0) fL 10.2 Immature Gran % % 0.3 Neutrophils % % 66.1 Lymphocytes % % 11.5 Monocytes % % 16.0 Eosinophils % % 5.6 Basophils % % 0.5 Nucleated RBC % (0.0-0.3) % 0.0 Absolute Neutrophils (1.2-6.7) 10^3/uL 5.28 Absolute Lymphocytes (1.2-3.4) 10^3/uL 0.92 L Absolute Monocytes (0.1-0.8) 10^3/uL 1.28 H Absolute Eosinophils (0.0-0.7) 10^3/uL 0.45 Absolute Basophils (0.0-0.2) 10^3/uL 0.04 RBC Morphology See Below Polychromasia Present Hypochromasia 2+ PT (9.1-11.1) sec 12.0 H INR (0.9-1.1) 1.2 H VBG Lactate (0.6-1.4) mmol/L 0.6 Sodium (136-145) mmol/L 135 L Potassium (3.5-5.1) mmol/L 4.0 Chloride (98-107) mmol/L 101 Carbon Dioxide (21.0-32.0) mmol/L 24.0 Anion Gap (3-11) mmol/L 10.0 BUN (7-18) mg/dL 72 H Creatinine (0.70-1.30) mg/dL 4.2 H* Est GFR (CKD-EPI 2020) (mL/min/1.73m2) 14.47 Glucose (74-106) mg/dL 151 H Calcium (8.5-10.1) mg/dL 8.9 Magnesium (1.8-2.4) mg/dL 1.8 Total Bilirubin (0.2-1.0) mg/dL 0.13 L AST (15-37) U/L 10 L ALT (16-63) U/L 17 Alkaline Phosphatase (46-116) U/L 112 Troponin I (< or =60) ng/L < 50 NT-Pro-B Natriuret Pep (<300) pg/mL 7467 H Total Protein (6.4-8.2) g/dL 6.9 Albumin (3.4-5.0) g/dL 1.7 L ABO/Rh O Positive Antibody Screen NEGATIVE Crossmatch See Detail Medical Decision Making Quality:SDOH Health Related Social Needs: No Data to Display Critical Care Time Critical Care Time Critical Care Time: Yes Total Critical Care Time: 45 Attestation: Upon my evaluation, this patient had a high probability of imminent or life- threatening deterioration due to GI bleed requiring transfusion, which required my direct attention, intervention, and personal management. I have personally provided 45 minutes of critical care time exclusive of time spent on separately billable procedures. Time includes review of laboratory data, radiology results, discussion with consultants, and monitoring for potential decompensation. Interventions were performed as documented above. Jennifer Osorio MD PFSH All Active Problems (Updated 06/03/24 @ 23:25 by PRASANNA Mary) Acute head trauma (Acute) Laceration of skin of face (Acute) CKD (chronic kidney disease) (Chronic) Anemia (Chronic) Septic shock (Acute) Acute hyponatremia (Acute) Acute renal failure (Acute) Right carpal tunnel syndrome (Acute) Atrial fibrillation with RVR (Acute) Cellulitis of right leg (Acute) HTN (hypertension) (Chronic) H/O surgical procedure (Chronic) a. Umbilical herniorrhaphy b. Tonsillectomy Right lumbar radiculitis (Chronic) Spondylosis of lumbar region without myelopathy or radiculopathy (Chronic) Cellulitis (Acute) CHF (congestive heart failure) (Chronic) DVT prophylaxis (Acute) Discharge planning issues (Acute) Bacteremia (Acute) Acute kidney injury (Acute) PAD (peripheral artery disease) (Acute) Acute on chronic diastolic CHF (congestive heart failure), NYHA class 1 (Acute) Atrial fibrillation (Chronic) Diabetes mellitus type 2 in obese (Acute) CKD (chronic kidney disease) stage 3, GFR 30-59 ml/min (Acute 08/28/14) 07/2014 US R renal cyst otherwise NL Osteopenia (Acute 06/02/13) Overweight (Acute 04/08/12) Bilateral carpal tunnel syndrome (Acute) Cubital tunnel syndrome, bilateral (Acute) Medical History Anxiety Atrial fibrillation 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) broken rt thumb (10/10/16) Carpal tunnel syndrome Chronic back pain COPD (chronic obstructive pulmonary disease) Dilated aortic root Diverticulosis Edema Essential hypertension 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) Male erectile disorder (06/02/13) Onychodystrophy Physical deconditioning Subjective pulsatile tinnitus Type 2 diabetes mellitus Vitamin D deficiency Surgical History Colonoscopy - IV Sedation (01/15/15) Dr Templeton Right knee surgery after injury Family History Grandfather Diabetes Grandmother Diabetes Social History Smoking/Tobacco Use Status: Former Tobacco Use Smoking risk assessment performed?: Yes Alcohol Intake: current Alcohol Intake frequency: a few times a week Alcohol type: beer Drug use: Rarely Substance use type: marijuana Housing: other Do you feel safe at home: Yes Do you feel safe in your relationship?: Yes
[2024-06-06 17:53] LABS: COVID-19 PCR Negative (Negative); Influenza A PCR Negative (Negative); Influenza B PCR Negative (Negative); RSV PCR Negative (Negative)
[2024-06-06 17:55] LABS: Source Nasopharynx
--- NOTE | 2024-06-06 18:09 | DI.RAD_ITS ---
Exam(s) XR CHEST 1V IN DI DEPT EXAM: XR CHEST 1V IN DI DEPT CLINICAL HISTORY: SOB TECHNIQUE: 2D digital imaging was performed of the chest. One image was obtained. An AP view was ob tained. COMPARISON: CR,XR XR CHEST 2V PA LATERAL from 06/03/2024 FINDINGS: MEDIASTINUM: Normal. HEART: Cardiomegaly. PULMONARY VASCULATURE: Normal. LUNGS: No focal consolidating infiltrates are seen. PLEURAL SPACE: There is blunting of the left costophrenic angle suggesting a left pleural effusion. No right pleural effusion. No pneumothorax. BONE:Within normal limits for the patient's age. OTHER FINDINGS:Patient's right IJ catheter is in stable position. IMPRESSION: Small left pleural effusion. Cardiomegaly. DATA REPOSITORY: RADIATION DOSE DELIVERED:
--- NOTE | 2024-06-06 18:09 | DI.CT_ITS ---
Exam(s) CT ABDOMEN PELVIS WO EXAM: CT ABDOMEN PELVIS WO CLINICAL HISTORY: Lower GI bleed. TECHNIQUE: Imaging Protocol: Axial computed tomography images with coronal and sagittal reformatted images were created and reviewed. COMPARISON: CT,NM MPI RESTING AND STRESS from 05/05/[address] CHEST/ABD/PEL WO from 05/09/2024 FINDINGS: The examination is limited due to patient motion artifact. ABDOMEN: Lung Bases: Cardiomegaly. There is a small left pleural effusion. Liver: Normal density. No measurable mass. Gallbladder and biliary tract: No radiodense calculus or biliary ductal dilation. Pancreas: Normal density, no abnormal calcifications or inflammatory process. Spleen: Normal. Kidneys: Normal size, contour and axis.No radiodense stones or obstructive uropathy. No masses seen. Adrenal glands: No mass is seen. Lymph nodes: Specific mildly enlarged lymph nodes are seen in the retroperitoneum. Abdominal Aorta: Abdominal portion non-dilated. Atherosclerotic calcification is present. PELVIS: Bladder:There is a Godinez catheter in a decompressed urinary bladder. Bowel: There is a large amount of stool in the rectum which may represent fecal impaction. Please co rrelate clinically. No rectal wall thickening is seen. The stomach is incompletely distended limiting evaluation. No bowel wall thickening or obstruction is present. No evidence of appendicitis. Peritoneal cavity: No ascites, collection or mesenteric inflammatory response. No free air. Reproductive organs: Unremarkable as visualized. Bones: Age-appropriate degenerative changes are seen in the spine. Soft Tissues: There is edema seen in the soft tissues of the left lateral chest wall. No focal fluid collection is seen to suggest an abscess. This is nonspecific. IMPRESSION: 1. Evidence of nephrolithiasis or hydronephrosis. 2. Large amount of stool in the rectum which may represent fecal impaction. No bowel wall thickening or obstruction is seen. 3. Cardiomegaly. Small left pleural effusion. RADIATION DOSE DELIVERED: Total DLP DATA REPOSITORY: All CT scans at this facility are submitted to the National Radiology Data Registry (NRDR) Dose Index Registry (DIR) with the [employer] (ACR). RADIATION OPTIMIZATION: All CT scans at this facility use at least one of these dose optimization te chniques: automated exposure control; mA and/or kV adjustment per patient size (includes targeted exa ms where dose is matched to clinical indication); or iterative reconstruction.
[2024-06-06] MEDS: Furosemide 40 MG/4 ML VIAL IVP (18:17)
[2024-06-06 20:03] LABS: Troponin I < 50 ng/L (< or =60)
[2024-06-06] MEDS: Furosemide 100 MG/10 ML VIAL IVP (20:52)
[2024-06-06] MEDS: Normal Saline Flush 10 ML SYR IVP (20:53)
[2024-06-06 21:48] LABS: HCT 22.4 % (40.0-50.0); HGB 7.2 g/dL (13.5-17.5)
--- NOTE | 2024-06-06 21:56 | W.PCEDHO ---
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) broken rt thumb (10/10/16) Vitamin D deficiency Dilated aortic root Atrial fibrillation Anxiety Essential hypertension Diverticulosis (Last Reviewed 02/12/23 @ 20:57 by Yariel Lujan MD) Right knee surgery after injury Colonoscopy - IV Sedation (01/15/15) Most Recent Vital Signs Temperature 36.7 C 06/06/24 18:50 Pulse 73 06/06/24 21:01 Pulse 92 H 06/06/24 21:01 Respiratory Rate 28 H 06/06/24 21:01 Respiratory Effort Short of Breath 06/06/24 16:17 Blood Pressure 120/52 L 06/06/24 21:01 Blood Pressure Mean 70 06/06/24 21:01 Pulse Oximetry 96 06/06/24 21:01 Oxygen Delivery Method Room Air 06/06/24 18:46 Oxygen Flow Rate 0 06/06/24 18:46 Allergies No Known Allergies Allergy (Verified 06/03/24 20:24) Precautions Isolation Standard precaution 06/06/24 16:17 Active Medications Generic Name Dose Route Start Last Admin Trade Name Bulmaroq PRN Reason Stop Dose Admin Sodium Chloride 0 ml 06/06/24 20:00 06/06/24 20:53 Normal Saline Flush 10 Ml Syr IVP 10 ml BID VLAD Administration Diagnostics 06/06/24 06/06/24 06/06/24 Range/Units 21:43 19:25 17:11 WBC (4.4-10.8) 10^3/uL RBC (4.36-5.78) 10^6/uL Hgb 7.2 L (13.5-17.5) g/dL Hct 22.4 L (40.0-50.0) % MCV (80-95) fL MCH (27.0-33.0) pg MCHC (32.0-36.0) % RDW (11.8-14.1) % Plt Count (130-400) 10^3/uL MPV (8.0-11.0) fL Immature Gran % % Neutrophils % % Lymphocytes % % Monocytes % % Eosinophils % % Basophils % % Nucleated RBC % (0.0-0.3) % Absolute Neutrophils (1.2-6.7) 10^3/uL Absolute Lymphocytes (1.2-3.4) 10^3/uL Absolute Monocytes (0.1-0.8) 10^3/uL Absolute Eosinophils (0.0-0.7) 10^3/uL Absolute Basophils (0.0-0.2) 10^3/uL RBC Morphology Polychromasia Hypochromasia PT (9.1-11.1) sec INR (0.9-1.1) VBG Lactate (0.6-1.4) mmol/L Sodium (136-145) mmol/L Potassium (3.5-5.1) mmol/L Chloride (98-107) mmol/L Carbon Dioxide (21.0-32.0) mmol/L Anion Gap (3-11) mmol/L BUN (7-18) mg/dL Creatinine (0.70-1.30) mg/dL Est GFR (CKD-EPI 2020) (mL/min/1.73m2) Glucose (74-106) mg/dL Calcium (8.5-10.1) mg/dL Magnesium (1.8-2.4) mg/dL Total Bilirubin (0.2-1.0) mg/dL AST (15-37) U/L ALT (16-63) U/L Alkaline Phosphatase (46-116) U/L Troponin I < 50 (< or =60) ng/L NT-Pro-B Natriuret Pep (<300) pg/mL Total Protein (6.4-8.2) g/dL Albumin (3.4-5.0) g/dL COVID-19 Source Nasopharynx SARS-CoV-2 (PCR) Negative (Negative) Influenza Type A (PCR) Negative (Negative) Influenza Type B (PCR) Negative (Negative) RSV (PCR) Negative (Negative) ABO/Rh Antibody Screen Crossmatch 06/06/24 06/06/24 Range/Units 16:32 16:12 WBC 7.99 (4.4-10.8) 10^3/uL RBC 2.18 L (4.36-5.78) 10^6/uL Hgb 6.3 L* (13.5-17.5) g/dL Hct 20.1 L* (40.0-50.0) % MCV 92 (80-95) fL MCH 28.9 (27.0-33.0) pg MCHC 31.3 L (32.0-36.0) % RDW 15.9 H (11.8-14.1) % Plt Count 266 (130-400) 10^3/uL MPV 10.2 (8.0-11.0) fL Immature Gran % 0.3 % Neutrophils % 66.1 % Lymphocytes % 11.5 % Monocytes % 16.0 % Eosinophils % 5.6 % Basophils % 0.5 % Nucleated RBC % 0.0 (0.0-0.3) % Absolute Neutrophils 5.28 (1.2-6.7) 10^3/uL Absolute Lymphocytes 0.92 L (1.2-3.4) 10^3/uL Absolute Monocytes 1.28 H (0.1-0.8) 10^3/uL Absolute Eosinophils 0.45 (0.0-0.7) 10^3/uL Absolute Basophils 0.04 (0.0-0.2) 10^3/uL RBC Morphology See Below Polychromasia Present Hypochromasia 2+ PT 12.0 H (9.1-11.1) sec INR 1.2 H (0.9-1.1) VBG Lactate 0.6 (0.6-1.4) mmol/L Sodium 135 L (136-145) mmol/L Potassium 4.0 (3.5-5.1) mmol/L Chloride 101 (98-107) mmol/L Carbon Dioxide 24.0 (21.0-32.0) mmol/L Anion Gap 10.0 (3-11) mmol/L BUN 72 H (7-18) mg/dL Creatinine 4.2 H* (0.70-1.30) mg/dL Est GFR (CKD-EPI 2020) 14.47 (mL/min/1.73m2) Glucose 151 H (74-106) mg/dL Calcium 8.9 (8.5-10.1) mg/dL Magnesium 1.8 (1.8-2.4) mg/dL Total Bilirubin 0.13 L (0.2-1.0) mg/dL AST 10 L (15-37) U/L ALT 17 (16-63) U/L Alkaline Phosphatase 112 (46-116) U/L Troponin I < 50 (< or =60) ng/L NT-Pro-B Natriuret Pep 7467 H (<300) pg/mL Total Protein 6.9 (6.4-8.2) g/dL Albumin 1.7 L (3.4-5.0) g/dL COVID-19 Source SARS-CoV-2 (PCR) (Negative) Influenza Type A (PCR) (Negative) Influenza Type B (PCR) (Negative) RSV (PCR) (Negative) ABO/Rh O Positive Antibody Screen NEGATIVE Crossmatch See Detail Intake and Output - 24 Hour Total 06/06/24 15:53 thru 06/06/24 21:04 Intake Total 450 Output Total 50 Balance 400 Weight 158.757 kg Intake: Blood Product 450 Rbc Leuko Reduced Unit 450 [id number] Output: Urine 50 Emesis 0 Other: Emesis Description None Urinary Catheter Urinary Catheter Date of 06/06/24 Insertion [Uretheral (Godinez)] Time of insertion [Uretheral ( 17:48 Godinez)] Falls Risk Assessment History of Falls Previous History 06/06/24 16:17 Contributing Factors Unstable,Impairments, 06/06/24 16:17 Medications Ambulatory Aids Uses ambulatory device + 06/06/24 16:17 Tubes/Lines None 06/06/24 16:17 Gait Evaluation W/any additional score 06/06/24 16:17 Cognition No cognitive impairment 06/06/24 16:17 Fall Total Score 74 06/06/24 16:17 Level of Risk High Risk 06/06/24 16:17 v v v v v v v v v Sending and/or Receiving Nurses: Please use comment section below to note any information pertinent to the patient hand-off not included above. Information / Comments: Report received from: Jennifer Tineo RN
--- NOTE | 2024-06-06 23:02 | HPE_ITS ---
Date of service: 06/06/24 Time of Service: 23:02 Assessment and Plan Assessment and plan (1) Hematochezia: Status: Acute Assessment and plan: Patient [facility] with what appears to be rectal bleeding. Grossly heme positive with markedly low hemoglobin of 6.3. Responded well to 1 unit of packed red cells. There is risk for continued bleeding and concerned that we will not be able to diurese him adequately because of his renal failure. Admit to the ICU for close monitoring. Recheck hemoglobin in about 6 hours. (2) Acute head trauma: Status: Acute Assessment and plan: Suffered a fall from the [facility] on 06/03/2024. Bruised left forehead and left eye. No apparent sequela I. (3) Anemia: Status: Chronic Assessment and plan: He has both lower rectal bleeding and hematochezia as well as a diagnosed duodenal ulcer while admitted at [facility] 05/09/2024. Will resume PPI and Carafate therapy. Monitor serial hemoglobin. He will eventually need a colonoscopy. (4) Acute renal failure: Status: Acute Assessment and plan: Creatinine is bumped to 4.2. He is making urine. Will change his furosemide to IV. 80 mg every morning. Monitor renal function closely (5) Atrial fibrillation with RVR: Status: Acute Assessment and plan: He has been on diltiazem and carvedilol for rate control. Given his concern for ongoing blood loss we will hold the diltiazem, continue carvedilol with parameters. Monitor blood pressure closely in the ICU. Rate reasonably well- controlled at this time. The Xarelto has been held. Avoid anticoagulants at this time. (6) CHF (congestive heart failure): Assessment and plan: Mild CHF by chest x-ray. He has rhonchorous breath sounds. We are trying to keep his fluid balance is negative is possible. He likely has a combination of both right and left heart failure given his total body anasarca. Echocardiogram from 07/13/2020 showed normal LV function with an EF of 55%. The right ventricle was read as normal at that time as well. No follow-up echocardiogram here at [facility] though he likely had 1 during his stay at [facility] 05/09/2024. (7) Pulmonary hypertension: Status: Acute Assessment and plan: Known pulmonary hypertension from previous admissions. Not currently on any treatment. (8) Septic shock: Status: Acute Assessment and plan: Status post an episode of septic shock for which she was hospitalized 05/09/2024. He has since undergone amputation of the right second toe and completed a course of antibiotics. Does not appear to be acutely infected at this time. (9) Diabetes mellitus type 2 in obese: Status: Acute Assessment and plan: Long-term diabetic. Will keep him on some basal insulin and cover with sliding scale. Diabetic diet. Check hemoglobin A1c in the a.m. (10) CKD (chronic kidney disease) stage 3, GFR 30-59 ml/min: Status: Acute Assessment and plan: Patient has had worsening renal function since April 2024. He has a buried catheter in the right upper chest that has been accessed for nearly 4 weeks. That will need to be changed. Does not look infected. He has been followed by nephrology. Does not appear to be a candidate for dialysis at this time (11) Overweight: Status: Acute Assessment and plan: Markedly overweight and with total body anasarca. Mobility issues and weakness. Will ask physical therapy to see him. (12) Duodenal ulcer: Status: Acute Assessment and plan: Diagnosed at [facility] 05/09/2024. Will continue on PPI and Carafate. (13) Bleeding hemorrhoid: Status: Acute Assessment and plan: Possibly because of the hematochezia. He needs further workup to include colonoscopy. Monitor hemoglobin closely. History of Present Illness History of Present Illness Chief Complaint: GI bleeding/renal failure N arrative: This is a 69-year-old male transferred from [facility]. He had a recent episode of sepsis 05/09/2024 involving his right lower extremity. He had dropped a cinder block on his right foot. He underwent an amputation of the distal right second toe. During his hospitalization at [facility] he developed acute renal failure. He was diagnosed with a duodenal ulcer. He was transferred to [facility] for rehab. He was noted to have a low hemoglobin and shortness of breath and was seen in the emergency room 4 days ago. [place] to be stable and returned to [facility]. This evening he had a large incontinent bowel movement found to be heme positive and was sent to the emergency room for evaluation. In the emergency room he had air hunger but satting 97% on room air. He had anasarca and rhonchorous lung sounds. Rectal exam was grossly positive for blood. He got an initial dose of 40 mg of Lasix followed by 100 mg IV push Lasix. He has put out about 1800 cc of clear urine. His initial hemoglobin was 6.3 and he received 1 unit of packed red cells. Follow-up hemoglobin improved to 7.2. Given his active GI bleeding in the setting of renal failure he is being admitted to the intensive care unit for close monitoring as he appears to still be bleeding, requiring transfusions, and is in renal failure. Review of Systems Narrative: He does not complain of any specific pain. He does have air hunger and feels slightly short of breath despite normal O2 saturation. No cough no chest pain. No abdominal discomfort. He had a loose incontinent bowel movement this morning that was found to contain blood. He has been relatively sedentary recently which he relates to his being overweight (320 pounds). He has a lot of swelling everywhere. He feels he has recovered from the infection that caused prolonged hospitalization 05/09/2024. [facility] All Active Problems (Updated 06/06/24 @ 23:15 by Rodriguez Anderson MD) Bleeding hemorrhoid (Acute) Found to have a small hemorrhoid on rectal 06/06/2024. Duodenal ulcer (Acute) Diagnosed at [facility] 05/09/2024. On PPI and Carafate. Hematochezia (Acute) Acute head trauma (Acute) Fell from [facility] on 06/03/2024. Ecchymosis around the left eye and forehead. Anemia (Chronic) Septic shock (Acute) Right second toe infection 05/09/2024. Admitted to [facility]. Status post excision distal right second toe. Acute renal failure (Acute) Atrial fibrillation with RVR (Acute) Pulmonary hypertension (Acute) Diabetes mellitus type 2 in obese (Acute) CKD (chronic kidney disease) stage 3, GFR 30-59 ml/min (Acute 08/28/14) 07/2014 US R renal cyst otherwise NL Overweight (Acute 04/08/12) Medical History (Updated 06/06/24 @ 23:15 by Rodriguez Anderson MD) Cubital tunnel syndrome, bilateral Bilateral carpal tunnel syndrome Osteopenia (06/02/13) CKD (chronic kidney disease) Atrial fibrillation CHF (congestive heart failure) Acute on chronic diastolic CHF (congestive heart failure), NYHA class 1 PAD (peripheral artery disease) Acute kidney injury Bacteremia 05/09/2024 Discharge planning issues DVT prophylaxis Cellulitis Right lumbar radiculitis Spondylosis of lumbar region without myelopathy or radiculopathy HTN (hypertension) Cellulitis of right leg 05/09/2024 Right carpal tunnel syndrome Acute hyponatremia Laceration of skin of face Fell from gurney 06/03/2024 COPD (chronic obstructive pulmonary disease) Type 2 diabetes mellitus Onychodystrophy Chronic back pain Edema Physical deconditioning Subjective pulsatile tinnitus Carpal tunnel syndrome Male erectile disorder (06/02/13) 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 Umbilical herniorrhaphy b. Tonsillectomy Right knee surgery after injury Colonoscopy - IV Sedation (01/15/15) Dr Templeton Family History Grandfather Diabetes Grandmother Diabetes Social History Smoking/Tobacco Use Status: Former Tobacco Use Smoking risk assessment performed?: Yes Alcohol Intake: current Alcohol Intake frequency: a few times a week Alcohol type: beer Drug use: Rarely Substance use type: marijuana Housing: other Do you feel safe at home: Yes Do you feel safe in your relationship?: Yes Meds Allergies and Home Medications Allergies Allergy/AdvReac Type Severity Reaction Status Date / Time No Known Allergies Allergy Verified 06/03/24 20:24 Home Medications ?Medication ?Instructions ?Recorded ?Confirmed ?Type multivitamin (Daily Vitamin tablet) 1 ea PO DAILY 03/20/13 06/06/24 History magnesium oxide 400 mg (241.3 mg 400 mg PO BID #60 tabs 06/30/14 06/06/24 Rx magnesium) tablet diltiazem HCl 240 mg 240 mg PO DAILY ##90 07/24/16 06/06/24 History capsule,extended release 24 hr, controlled rivaroxaban 15 mg tablet (Xarelto) 15 mg PO DAILY #90 tab-caps 07/24/16 06/06/24 History blood-glucose meter (Blood Glucose #1 ea 07/17/20 06/06/24 Rx Monitoring kit) furosemide 20 mg tablet (Lasix) 40 mg (2 x 20 mg) PO BID #0 tabs 07/17/20 06/06/24 Rx lancets 30 gauge and blood glucose #200 ea 07/17/20 06/06/24 Rx strips combo pack atorvastatin 40 mg tablet 40 mg PO DAILY 11/28/22 06/06/24 History carvedilol 25 mg tablet 25 mg PO BID 11/28/22 06/06/24 History insulin glargine 100 unit/mL (3 15 unit subcut QPM 11/28/22 06/06/24 History mL) subcutaneous pen (Lantus Solostar U-100 Insulin) insulin lispro 100 unit/mL 8 unit subcut TID 11/28/22 06/06/24 History subcutaneous pen (Humalog KwikPen (U-100) Insulin) liraglutide 0.6 mg/0.1 mL (18 mg/3 1.2 mg subcut DAILY 11/28/22 06/06/24 History mL) subcutaneous pen injector lisinopril 5 mg tablet 5 mg PO DAILY 11/28/22 06/06/24 History acetaminophen 500 mg tablet 500 mg PO Q6H PRN 12/19/22 06/06/24 History Exam Narrative Exam Narrative: Morbidly obese gentleman with total body anasarca. He has marked swelling of his hands arms upper and lower legs. He has no draining or ulcerating lesions. His right second toe still has nylon sutures on the distal tip but appears to be clean and not infected. He had no signs of lower extremity cellulitis. He does have chronic skin changes along with the 4+ edema. His lung sounds are rhonchorous bilaterally up about a third. His upper lung sounds are clear. Heart sounds are regular no significant murmurs appreciated. His abdomen is quite massively obese but overall soft and nontender in 4 quadrants. Rectal exam was deferred as it was done prior to my seeing him by the ER physician. Reportedly grossly positive hematochezia. He has a bruise over his left eye and ecchymoses around the left eye. He can open and see through the eye without difficulty. The left arm and shoulder region was overall nontender to palpation. He seems to be able to move that freely in a limited manner. He has a Godinez catheter that is draining clear urine with 500 cc in the bag at the time of my visit. Results Imaging Chest x-ray: report reviewed (Small left pleural effusion, right IJ line. Question mild CHF) Labs 06/06/24 21:43 06/06/24 16:12 Labs: Laboratory Results - last 24 hr 06/06/24 06/06/24 06/06/24 16:12 16:32 17:11 WBC 7.99 RBC 2.18 L Hgb 6.3 L* Hct 20.1 L* MCV 92 MCH 28.9 MCHC 31.3 L RDW 15.9 H Plt Count 266 MPV 10.2 Immature Gran % 0.3 Neutrophils % 66.1 Lymphocytes % 11.5 Monocytes % 16.0 Eosinophils % 5.6 Basophils % 0.5 Nucleated RBC % 0.0 Absolute Neutrophils 5.28 Absolute Lymphocytes 0.92 L Absolute Monocytes 1.28 H Absolute Eosinophils 0.45 Absolute Basophils 0.04 RBC Morphology See Below Polychromasia Present Hypochromasia 2+ PT 12.0 H INR 1.2 H VBG Lactate 0.6 Sodium 135 L Potassium 4.0 Chloride 101 Carbon Dioxide 24.0 Anion Gap 10.0 BUN 72 H Creatinine 4.2 H* Est GFR (CKD-EPI 2020) 14.47 Glucose 151 H Calcium 8.9 Magnesium 1.8 Total Bilirubin 0.13 L AST 10 L ALT 17 Alkaline Phosphatase 112 Troponin I < 50 NT-Pro-B Natriuret Pep 7467 H Total Protein 6.9 Albumin 1.7 L COVID-19 Source Nasopharynx SARS-CoV-2 (PCR) Negative Influenza Type A (PCR) Negative Influenza Type B (PCR) Negative RSV (PCR) Negative ABO/Rh O Positive Antibody Screen NEGATIVE Crossmatch See Detail 06/06/24 06/06/24 19:25 21:43 WBC RBC Hgb 7.2 L Hct 22.4 L MCV MCH MCHC RDW Plt Count MPV Immature Gran % Neutrophils % Lymphocytes % Monocytes % Eosinophils % Basophils % Nucleated RBC % Absolute Neutrophils Absolute Lymphocytes Absolute Monocytes Absolute Eosinophils Absolute Basophils RBC Morphology Polychromasia Hypochromasia PT INR VBG Lactate Sodium Potassium Chloride Carbon Dioxide Anion Gap BUN Creatinine Est GFR (CKD-EPI 2020) Glucose Calcium Magnesium Total Bilirubin AST ALT Alkaline Phosphatase Troponin I < 50 NT-Pro-B Natriuret Pep Total Protein Albumin COVID-19 Source SARS-CoV-2 (PCR) Influenza Type A (PCR) Influenza Type B (PCR) RSV (PCR) ABO/Rh Antibody Screen Crossmatch Last Vital Signs Temp 36.7 C 06/06/24 18:50 Pulse 77 06/06/24 22:46 Resp 31 H 06/06/24 22:50 BP 137/67 06/06/24 22:46 Pulse Ox 99 06/06/24 22:50 Time Spent Time spent with Patient: 55-74 minutes Time was spent: preparing to see the patient(eg.review tests), obtaining and/or reviewing separately otained hiistory, ordering medications,tests, procedures, referring, communicating with other health manager home healthcare, indepentently interpreting results and counseling the patient
--- OUTSIDE RECORDS SUMMARY | 2024-06-06 23:55 | XMS_ITS | Encounter Summary ---
Author Organization [facility] Address [address] [place] [address] Care Team Providers Care Ships Or Barges Loader Name Role Phone Cruzito Hager MD Primary Care Provider U navailable Reason for Referral * (Routine/Next Available) - Receiving Office to Obtain Authorization Specialty Diagnoses / Procedures Referred By Contac t Referred To Contact Procedures XR OUTSIDE IMAGES CHEST Unknown, ProviderMD Referral ID Status Reason Start Date Expiration Date Visits Requested Visits Authorized [id number] Receiving Office to Obtain Authorization 06/06/2024 1 1 Reason for Visit * (Routine/Next Available) - Receiving Office to Obtain Authorization Specialty Diagnoses / Procedures Referred By Contac t Referred To Contact Procedures XR OUTSIDE IMAGES CHEST Unknown, MD Calixto Referral ID Status Reason Start Date Expiration Date Visits Requested Visits Authorized [id number] Receiving Office to Obtain Authorization 06/06/2024 1 1 Encounter Details Date Type Department Care Team (Late st Contact Info) Description 06/06/2024 20:16 EDT Hospital Encounter [facility] [place] Arrived Social History Tobacco Use Types Packs/Day Years Used Date Smoking Tobacco: Never Assessed Sex and Gender Information Value Date Recorded Sex Assigned at Not on file Gender Identity Not on file Sexual Orientation Not on file documented as of this encounter Plan of Treatment Not on file documented as of this encounter Procedures Procedure Name Priority Date/Time Associated Diagnosis Comments XR OUTSIDE IMAGES CHEST Routine 06/06/2024 20:17 EDT documented in this encounter Results * XR OUTSIDE IMAGES CHEST (06/06/2024 20:17 EDT) Narrative 06/06/2024 20:17 EDT This is a non-reportable exam. Provider Unknown MD BRUNER OTHER IMAGING OR DERABLES documented in this encounter Visit Diagnoses Not on filedocumented in this encounter Care Teams Ships Or Barges Loader Relationship Specialty Start Date End Date Cruzito Hager MD PCP - General 06/14/11 documented as of this encounter
--- OUTSIDE RECORDS SUMMARY | 2024-06-06 23:55 | XMS_ITS | Referral Summary ---
Author Organization [facility] Address [address] [place] [address] Care Team Providers Care Player Piano Technician Name Role Phone Cruzito Hager MD Primary Care Provider U navailable Encounters Date Type Department Care Team Description 06/06/2024 Travel 06/06/2024 20:16 EDT Hospital Encounter [facility] [place] Arrived 06/06/2024 20:16 EDT Hospital Encounter [facility] [place] Arrived 06/06/[address] [phone] Kaya Swanson MD Discuss Possible Transfer (/) 06/04/2024 Lab Requisition [facility] Pathology & Laboratory [address] [address] Outr Resulting Lab, Provider 06/04/2024 Lab Requisition [facility] Pathology & Laboratory [facility] [address] [place] [address] Outr Resulting Lab, Provider from Last 3 Months Social History Tobacco Use Types Packs/Day Years Used Date Smoking Tobacco: Never Assessed Sex and Gender Information Value Date Recorded Sex Assigned at Not on file Gender Identity Not on file Sexual Orientation Not on file Last Filed Vital Signs Vital Sign Reading Time Taken Comments Blood Pressure 140/62 06/06/20242030 EDT OSH Pulse 84 06/06/20242030 EDT OSH Temperature - - Respiratory Rate 25 06/06/20242030 EDT OSH Oxygen Saturation 95% 06/06/20242030 EDT Inhaled Oxygen Concentration - - Weight - - Height - - Body Mass Index - - Plan of Treatment Not on file Procedures Procedure Name Priority Date/Time Associated Diagnosis Comments XR OUTSIDE IMAGES CHEST Routine 06/06/2024 20:[address] OUTSIDE IMAGES ABDOMEN PELVIS Routine 06/06/2024 20:16 EDT HEPATITIS B SURFACE ANTIGEN Routine 06/03/2024 15:55 EDT HEPATITIS C AB W REFLEX TO HCV RNA BY PCR Routine 06/03/2024 15:55 EDT HIV 1/2 ANTIGEN AND ANTIBODY, 4TH GENERATION Routine 06/03/2024 15:55 EDT from Last 3 Months Results * XR OUTSIDE IMAGES CHEST (06/06/2024 20:17 EDT) Narrative 06/06/2024 20:17 EDT This is a non-reportable exam. Provider Unknown MD BRUNER OTHER IMAGING OR DERABLES * CT OUTSIDE IMAGES ABDOMEN PELVIS (06/06/2024 20:16 EDT) Narrative 06/06/2024 20:16 EDT This is a non-reportable exam. Provider Unknown MD IMG OTHER IMAGING OR DERABLES * HEPATITIS C AB W REFLEX TO HCV RNA BY PCR (06/03/2024 15:55 EDT) Hep C Antibody Negative Negative 06/04/2024 19:[address] [facility] Blood VENOUS BLOOD / Unknown 06/03/2024 15:55 EDT 06/04/2024 17:25 EDT Provider Outr Resulting Lab CHEMISTRY & BLOOD GAS ORDERABLES [facility] [address] [place] [address] * HEPATITIS B SURFACE ANTIGEN (06/03/2024 15:55 EDT) Hep B Surface Ag Negative Negative 06/04/2024 18:[address] [facility] Blood VENOUS BLOOD / Unknown 06/03/2024 15:55 EDT 06/04/2024 17:25 EDT Provider Outr Resulting Lab CHEMISTRY & BLOOD GAS ORDERABLES Performing Organization Address [facility] Co de Phone Number [facility] [address] [place] [address] * HIV 1/2 ANTIGEN AND ANTIBODY, 4TH GENERATION (06/03/2024 15:55 EDT) HIV 1 and 2 Antibody/p24 Antigen, 4th Generation Negative Negative 06/04/2024 19:[address] [facility] Comment:If acute HIV-1 infec tion is suspected in a high risk patient, submit plasma specimen for HIV-1 RNA quantitation test. Blood VENOUS BLOOD / Unknown 06/03/2024 15:55 EDT 06/04/2024 17:25 EDT Narrative [facility] - 06/04/2024 19:41 EDT Fourth Generation assay performed on the Siemens Centaur XPT. Provider Outr Resulting Lab IMMUNOLOGY A ND SEROLOGY ORDERABLES [facility] [address] [place] [address] from Last 3 Months Care Teams Player Piano Technician Relationship Specialty Start Date End Date Cruzito Hager MD PCP - General 06/14/11
--- OUTSIDE RECORDS SUMMARY | 2024-06-06 23:55 | XMS_ITS | Data Portability ---
Author Organization [place] - [facility] Address [place] [address] Assessment Encounter Date Assessment Date Assessment LastModified by Organization Details LastModified Time 05/27/2024 05/27/2024 Unable to reach patient on the phone. No charge for visit. crystal Not available 05/27/2024 17:06:18 05/30/2024 05/30/2024 The total time devoted to today's encounter, including both the qqws-al-ipjb time with the patient and/or family/caregi rocio and qdz-trei-oi-f derek time I personally spent is 20 [...] Name Description Value Unit Range Abnormal Flag Note LastModifiedBy Organization Detail LastModifiedTime 05/09/2005/09/2024 VENOU S BLOOD GAS pH (venous) 7.31 7.31-7 .41 normal Not Available [address] [place], [address] 2024 17:59:16 05/09/20 24 2024 VENOU S BLOOD GAS pCO2 (venous) 54 mmHg 41-51 high Not Available Jory [address], [address] 2024 17:59:16 05/09/20 24 2024 VENOU S BLOOD GAS pO2 (venous) 26 mmHg Not Available [address] [place], [address] 2024 17:59:16 05/09/20 24 2024 VENOU S BLOOD GAS TCO2 (venous) 25 mmol/ L 24-29 normal Not Available [address] [place], [address] 2024 17:59:16 05/09/20 24 2024 VENOU S BLOOD GAS HCO3 (venous) 27 mmol/ L 23-28 normal Not Available [address] [place], [address] 2024 17:59:16 05/09/20 24 2024 VENOU S BLOOD GAS BE (venous) 1 mmol/ L -2-3 normal Not Available [address] [place], [address] 2024 17:59:16 05/09/20 24 2024 VENOU S BLOOD GAS O2 sat (venous) 42 % Not Available [address] [place], [address] 2024 17:59:16 05/09/20 24 2024 LACTA TE lactate 2.2 mmol/ L 0.6-1. 4 panic high Criti anurag value LACTA TE repor sebastián [facility] and [facility] at 1757 05/09 by LAB.M OOL Not Available [address] [place], [address] 2024 18:00:16 05/09/20 24 2024 ESR ESR 60 mm/HR 0-20 high Not Available [address] [place], [address] 2024 18:04:16 05/09/20 24 2024 COMPL ETE BLOOD COUNT W/DIF F WBC 33.55 10_3/ uL 4.4-10 .8 panic high Criti anurag value repor sebastián to and readb ack from [facility] , at 1812 05/09 by LAB.I FELISHA Not Available [address] [place], [address] 2024 18:21:18 05/09/20 24 2024 COMPL ETE BLOOD COUNT W/DIF F RBC 3.98 10_6/ uL 4.36-5 .78 low Not Available [address] [place], [address] 2024 18:21:18 05/09/20 24 2024 COMPL ETE BLOOD COUNT W/DIF F HGB 12.2 g/dL 13.5-1 7.5 low Not Available [address] [place], [address] 2024 18:21:18 05/09/20 24 2024 COMPL ETE BLOOD COUNT W/DIF F HCT 37.0 % 40.0-5 0.0 low Not Available [address] [place], [address] 2024 18:21:18 05/09/20 24 2024 COMPL ETE BLOOD COUNT W/DIF F MCV 93 fL 80-95 normal Not Available Jaymie [address] [place], [address] 2024 18:21:18 05/09/20 24 2024 COMPL ETE BLOOD COUNT W/DIF F MCH 30.7 pg 27.0-3 3.0 normal Not Available [address] [place], [address] 2024 18:21:18 05/09/20 24 2024 COMPL ETE BLOOD COUNT W/DIF F MCHC 33.0 % 32.0-3 6.0 normal Not Available [address] [place], [address] 2024 18:21:18 05/09/20 24 2024 COMPL ETE BLOOD COUNT W/DIF F RDW 15.3 % 11.8-1 4.1 high Not Available [address] [place], [address] 2024 18:21:18 05/09/20 24 2024 COMPL ETE BLOOD COUNT W/DIF F platelet count 145 10_3/ uL 130-40 0 normal Not Available [address] [place], [address] 2024 18:21:18 05/09/20 24 2024 COMPL ETE BLOOD COUNT W/DIF F MPV 12.4 fL 8.0-11 .0 high Not Available [address] [place], [address] 2024 18:21:18 05/09/20 24 2024 COMPL ETE BLOOD COUNT W/DIF F neutrophils % 87.0 % Not Available [address] [place], [address] 2024 18:21:18 05/09/20 24 2024 COMPL ETE BLOOD COUNT W/DIF F bands % 2 % Not Available [address] [place], [address] 2024 18:21:18 05/09/20 24 2024 COMPL ETE BLOOD COUNT W/DIF F lymphocytes % 3.0 % Not Available [address] [place], [address] 2024 18:21:18 05/09/20 24 2024 COMPL ETE BLOOD COUNT W/DIF F monocytes % 8.0 % Not Available [address] [facility] [place], [address] 2024 18:21:18 05/09/20 24 2024 COMPL ETE BLOOD COUNT W/DIF F eosinophils % 0.0 % Not Available [address] [place], [address] 2024 18:21:18 05/09/20 24 2024 COMPL ETE BLOOD COUNT W/DIF F basophils % 0.0 % Not Available [address] [place], [address] 2024 18:21:18 05/09/20 24 2024 COMPL ETE BLOOD COUNT W/DIF F immature grans % 0.0 % Not Available [address] [place], [address] 2024 18:21:18 05/09/20 24 2024 COMPL ETE BLOOD COUNT W/DIF F nucleated RBC 0.0 % 0.0-0. 3 normal Not Available [address] [place], [address] 2024 18:21:18 05/09/20 24 2024 COMPL ETE BLOOD COUNT W/DIF F absolute neutrophil count 29.86 10_3/ uL 1.2-6. 7 high Not Available [address] [place], [address] 2024 18:21:18 05/09/20 24 2024 COMPL ETE BLOOD COUNT W/DIF F absolute lymphocyte count 1.01 10_3/ uL 1.2-3. 4 low Not Available [address] [place], [address] 2024 18:21:18 05/09/20 24 2024 COMPL ETE BLOOD COUNT W/DIF F absolute monocyte count 2.68 10_3/ uL 0.1-0. 8 high Not Available [address] [place], [address] 2024 18:21:18 05/09/20 24 2024 COMPL ETE BLOOD COUNT W/DIF F absolute eosinophil count 0.00 10_3/ uL 0.0-0. 7 normal Not Available [address] [place], [address] 2024 18:21:18 05/09/20 24 2024 COMPL ETE BLOOD COUNT W/DIF F absolute basophil count 0.00 10_3/ uL 0.0-0. 2 normal Not Available [address] [place], [address] 2024 18:21:18 05/09/20 24 2024 COMPL ETE BLOOD COUNT W/DIF F diff comment Manual Differ ential Not Available Wilberto avery [address] [place], [address] 2024 18:21:18 05/09/20 24 2024 COMPL ETE BLOOD COUNT W/DIF F RBC morphology Normal Not Available [address] [place], [address] 2024 18:21:18 05/09/20 24 2024 COMPR EHENS CHARLES METAB OLIC PANEL calcium 9.1 mg/dL 8.5-10 .1 normal Not Available [address] [place], [address] 2024 18:25:19 05/09/20 24 2024 COMPR EHENS CHARLES METAB OLIC PANEL glucose 148 mg/dL 74-106 high Not Available Jaymie harris [address] [place], [address] 2024 18:25:19 05/09/20 24 2024 COMPR EHENS CHARLES METAB OLIC PANEL BUN 75 mg/dL 7-18 high Not Available Jaymie harris [address] [place], [address] 2024 18:25:19 05/09/20 24 2024 COMPR EHENS CHARLES METAB OLIC PANEL creatinine 4.7 mg/dL 0.70-1 .30 panic high Criti anurag value CREAT ININE repor sebastián to and readb ack from [facility] at 1821 05/09 by SILVINA jones ied by sanjuanita santiago otoniel sis Not Available [address] [place], [address] 2024 18:25:19 05/09/20 24 2024 COMPR EHENS CHARLES METAB OLIC PANEL estimated GFR 12.64 mL/min /1.73m 2 The eGFR is calcu lated from a serum creat inine using the CKD-E PI 2020 equat ion. Other varia bles requi red for the equat ion are gende r and age; this equat ion does not inclu de a race coeff icien t. This equat ion has simil ar overa ll perfo rmanc e to previ ous equat ions excep t value s may diffe r, in parti cular , in patie nts with highe r value s of eGFR and young er-ag ed adult s. Not Available [address] [place], [address] 2024 18:25:19 05/09/20 24 2024 COMPR EHENS CHARLES METAB OLIC PANEL total protein 8.3 g/dL 6.4-8. 2 high Not Available [address] [place], [address] 2024 18:25:19 05/09/20 24 2024 COMPR EHENS CHARLES METAB OLIC PANEL albumin 2.9 g/dL 3.4-5. 0 low Not Available [address] [place], [address] 2024 18:25:19 05/09/20 24 2024 COMPR EHENS CHARLES METAB OLIC PANEL bilirubin, total 0.73 mg/dL 0.2-1. 0 normal Not Available [address] [place], [address] 2024 18:25:19 05/09/20 24 2024 COMPR EHENS CHARLES METAB OLIC PANEL alk phos 38 U/L 46-116 low Not Available [address] [place], [address] 2024 18:25:19 05/09/20 24 2024 COMPR EHENS CHARLES METAB OLIC PANEL sodium 130 mmol/ L 136-14 5 low Not Available [address] [place], [address] 2024 18:25:19 05/09/20 24 2024 COMPR EHENS CHARLES METAB OLIC PANEL potassium 5.4 mmol/ L 3.5-5. 1 high Not Available [address] [place], [address] 2024 18:25:19 05/09/20 24 2024 COMPR EHENS CHARLES METAB OLIC PANEL chloride 93 mmol/ L 98-107 low Not Available [address] [place], [address] 2024 18:25:19 05/09/20 24 2024 COMPR EHENS CHARLES METAB OLIC PANEL CO2 27.8 mmol/ L 21.0-3 2.0 normal Not Available [address] [place], [address] 2024 18:25:19 05/09/20 24 2024 COMPR EHENS CHARLES METAB OLIC PANEL anion gap 9.2 mmol/ L 3-11 normal Not Available [address] [place], [address] 2024 18:25:19 05/09/20 24 2024 COMPR EHENS CHARLES METAB OLIC PANEL AST 15 U/L 15-37 normal Not Available Jaymie harris [address] [place], [address] 2024 18:25:19 05/09/20 24 2024 COMPR EHENS CHARLES METAB OLIC PANEL ALT 25 U/L 16-63 normal Not Available Jaymie harris [address] [place], [address] 2024 18:25:19 05/09/20 24 2024 NT-NE OBNP nt-probnp 6988 pg/mL <300 high NT-pr oBNP value s <300 pg/mL have a 98% negat charles predi ctive value for exclu ding acute conge stive heart failu re (CHF) . NT-pr oBNP value s >450 pg/mL are consi stent with CHF in adult s <50 years of age. A diagn ostic cut-o ff of 900 pg/mL has been sugge sted in adult s >50 years of age in the absen ce of renal failu re. A cut-o ff of 1200 pg/mL for patie nts with an eGFR less than 60 yield s a diagn ostic sensi tivit y and speci ficit y of 89% and 72% for acute conge stive failu re. NOTE: Supra -phys iolog ic doses of Bioti n(B7) may cause false negat charles resul ts. Not Available [address] [place], [address] 2024 18:25:19 05/09/20 24 2024 C-LIZZ CTIVE PROTE IN C-reactive protein > 25.00 mg/dL <or=0. 5 high Resul t verif ied by dilut ion and repea t otoniel sis Not Available [address] [facility] [place], [address] 2024 18:28:19 05/09/20 24 2024 LACTA TE lactate 2.2 mmol/ L 0.6-1. 4 panic high Criti anurag value LACTA TE repor sebastián to and readb ack from [facility] at 1757 05/09 by LAB.M OOL Not Available [address] [facility] [place], [address] 2024 18:30:22 05/09/20 24 2024 PROCA LCITO TI procalcitoni n 57.0 NG/mL PCT Value (ng/m L): Inter preta tion: <0.5 Low risk for sever e sepsi s/sep tic shock >or=0 .5 and <2.0 Sever e sepsi s/sep tic shock is possi ble >or=2 .0 High risk for sever e sepsi s/sep tic shock Note: Decis ions regar ding antib iotic thera py shoul d NOT be based solel y on proca lcito ti lisandro ntrat ions. A proca lcito ti lisandro ntrat ion of <0.5 ng/mL does not entir carlos exclu de syste ashley bacte rial infec tion/ sepsi s. Corre latio n with the full clini anurag, imagi ng, and labor atory findi ngs is requi red for a compl ete sepsi s evalu ation . Addit ional ly, eleva sebastián proca lcito ti lisandro ntrat ions may not alway s be relat ed to syste ashley bacte rial infec tion and can be seen in the setti ng of sever e grewal , major traum a, major surge ry, pancr eatit is, bowel ische jevon, asept ic syste ashley shock (anap hylac tic, hemor rhagi c, or cardi ogeni c), renal insuf ficie ncy, medul arnulfo thyro id cance r, small cell lung cance r, drugs stimu latin g pro-i nflam mator y cytok octavio, invas charles funga l infec tions , Kawas maria e disea se, among other cause s. Not Available [address] [place], [address] 2024 18:30:23 05/09/20 24 2024 COVID /FLU/ RSV PCR source Nasrachel inmanx Not Available [address] [place], [address] 2024 18:47:21 05/09/20 24 2024 COVID /FLU/ RSV PCR covid-19 PCR Negati ve negati ve This test has not been FDA clear ed or appro sheldon. This test has been autho rized by the FDA under an Emerg ency Use Autho rizat ion for use by autho rized labor atori es. This test has been autho rized only for detec tion of nucle ic acid from the 2019 novel coron a virus (2018 -nCoV ), influ sushila A, influ sushila B, and respi rator y syncy tial virus (RSV) , and not for the detec tion of any other virus es or patho gens. This test is only autho rized for the durat ion of the decla ratio n that circu mstan kyra exist justi fying the autho rizat ion of emerg ency use of in vitro diagn ostic tests for detec tion and/o r diagn osis of 2018- nCoV under secti on 564(b )(1) of Act, 21 U.S.C ??? 360bb b-3(b )(1), unles s the autho rizat ion is termi nated or revok ed soone r. Negat charles resul ts do not precl ude 2018- nCoV, influ sushila, and/o r RSV infec tion and shoul d not be used as the sole basis for treat ment or other patie nt manag ement decis ions. Negat charles resul ts must be combi randa with clini anurag obser vatio ns, patie nt histo ry, and epide miolo gical infor joe Thomasi ng perfo rmed at [facility] (CLIA #[id number]) on the [employer] id [id number] pert. Not Available [address] [place], [address] 2024 18:47:21 05/09/20 24 2024 COVID /FLU/ RSV PCR influenza A PCR Negati ve negati ve Not Available [address] [place], [address] 2024 18:47:21 05/09/20 24 2024 COVID /FLU/ RSV PCR influenza B PCR Negati ve negati ve Not Available [address] [place], [address] 2024 18:47:21 05/09/20 24 2024 COVID /FLU/ RSV PCR RSV PCR Negati ve negati ve Not Available [address] [place], [address] 2024 18:47:21 05/09/20 24 2024 CREAT INE KINAS E creatine kinase 65 U/L 39-308 normal Not Available [address] [place], [address] 2024 19:15:25 05/09/20 24 2024 LACTA TE lactate 1.5 mmol/ L 0.6-1. 4 high Not Available [address] [place], [address] 2024 20:23:38 05/09/20 24 2024 URINA LYSIS color Dark Yellow yellow Not Available Wilberto avery [address] [place], [address] 2024 20:38:39 05/09/20 24 2024 URINA LYSIS clarity Clear clear Not Available Jaymie harris [address] [place], [address] 2024 20:38:39 05/09/20 24 2024 URINA LYSIS specific gravity 1.020 1.005- 1.025 normal Not Available [address] [place], [address] 2024 20:38:39 05/09/20 24 2024 URINA LYSIS pH 5.0 5-8 normal Not Available Jaymie harris [address] [place], [address] 2024 20:38:39 05/09/20 24 2024 URINA LYSIS leukocyte esterase Negati ve negati ve Not Available [address] [place], [address] 2024 20:38:39 05/09/20 24 2024 URINA LYSIS nitrite Negati ve negati ve Not Available [address] [place], [address] 2024 20:38:39 05/09/20 24 2024 URINA LYSIS protein 30 mg/dL neg-tr derek abnormal Not Available [address] [place], [address] 2024 20:38:39 05/09/20 24 2024 URINA LYSIS glucose Negati ve mg/dL negati ve Not Available [address] [place], [address] 2024 20:38:39 05/09/20 24 2024 URINA LYSIS ketones Negati ve mg/dL negati ve Not Available [address] [place], [address] 2024 20:38:39 05/09/2005/09/2024 URINA LYSIS urobilinogen 0.2 mg/dL up to 0.2 Not Available [address] [place], [address] 2024 20:38:39 05/09/2005/09/2024 URINA LYSIS bilirubin Small negati ve abnormal Not Available [address] [place], [address] 2024 20:38:39 05/09/20 24 2024 URINA LYSIS blood Trace- lysed negati ve abnormal Not Available [address] [place], [address] 2024 20:38:39 05/09/20 24 2024 BASIC METAB OLIC PANEL calcium 8.4 mg/dL 8.5-10 .1 low Not Available [address] [place], [address] 2024 20:43:40 05/09/20 24 2024 BASIC METAB OLIC PANEL glucose 142 mg/dL 74-106 high Not Available Jaymie harris [address] [place], [address] 2024 20:43:40 05/09/20 24 2024 BASIC METAB OLIC PANEL BUN 74 mg/dL 7-18 high Not Available Jaymie harris [address] [place], [address] 2024 20:43:40 05/09/20 24 2024 BASIC METAB OLIC PANEL creatinine 4.7 mg/dL 0.70-1 .30 panic high Criti anurag value repor sebastián to and readb ack from [facility] [facility] at 05/09 by LAB.I FELISHA Resul t verif ied by repea t otoniel sis Not Available [address] [place], [address] 2024 20:43:40 05/09/20 24 2024 BASIC METAB OLIC PANEL estimated GFR 12.64 mL/min /1.73m 2 The eGFR is calcu lated from a serum creat inine using the CKD-E PI 2020 equat ion. Other varia bles requi red for the equat ion are gende r and age; this equat ion does not inclu de a race coeff icien t. This equat ion has simil ar overa ll perfo rmanc e to previ ous equat ions excep t value s may diffe r, in parti cular , in patie nts with highe r value s of eGFR and young er-ag ed adult s. Not Available [address] [place], [address] 2024 20:43:40 05/09/20 24 2024 BASIC METAB OLIC PANEL sodium 130 mmol/ L 136-14 5 low Not Available [address] [place], [address] 2024 20:43:40 05/09/20 24 2024 BASIC METAB OLIC PANEL potassium 5.8 mmol/ L 3.5-5. 1 high Not Available [address] [place], [address] 2024 20:43:40 05/09/20 24 2024 BASIC METAB OLIC PANEL chloride 94 mmol/ L 98-107 low Not Available [address] [place], [address] 2024 20:43:40 05/09/20 24 2024 BASIC METAB OLIC PANEL CO2 27.6 mmol/ L 21.0-3 2.0 normal Not Available [address] [place], [address] 2024 20:43:40 05/09/20 24 2024 BASIC METAB OLIC PANEL anion gap 8.4 mmol/ L 3-11 normal Not Available [address] [place], [address] 2024 20:43:40 05/09/20 24 2024 URINA LYSIS color Dark Yellow yellow Not Available Wilberto avery [address] [place], [address] 2024 20:49:42 05/09/20 24 2024 URINA LYSIS clarity Clear clear Not Available Jaymie harris [address] [place], [address] 2024 20:49:42 05/09/20 24 2024 URINA LYSIS specific gravity 1.020 1.005- 1.025 normal Not Available [address] [place], [address] 2024 20:49:42 05/09/20 24 2024 URINA LYSIS pH 5.0 5-8 normal Not Available Jaymie harris [address] [place], [address] 2024 20:49:42 05/09/20 24 2024 URINA LYSIS leukocyte esterase Negati ve negati ve Not Available [address] [place], [address] 2024 20:49:42 05/09/20 24 2024 URINA LYSIS nitrite Negati ve negati ve Not Available [address] [place], [address] 2024 20:49:42 05/09/20 24 2024 URINA LYSIS protein 30 mg/dL neg-tr derek abnormal Not Available [address] [place], [address] 2024 20:49:42 05/09/20 24 2024 URINA LYSIS glucose Negati ve mg/dL negati ve Not Available [address] [place], [address] 2024 20:49:42 05/09/20 24 2024 URINA LYSIS ketones Negati ve mg/dL negati ve Not Available [address] [place], [address] 2024 20:49:42 05/09/20 24 2024 URINA LYSIS urobilinogen 0.2 mg/dL up to 0.2 Not Available [address] [place], [address] 2024 20:49:42 05/09/20 24 2024 URINA LYSIS bilirubin Small negati ve abnormal Not Available [address] [place], [address] 2024 20:49:42 05/09/20 24 2024 URINA LYSIS blood Trace- lysed negati ve abnormal Not Available [address] [place], [address] 2024 20:49:42 05/09/20 24 2024 MICRO SCOPI C FINDI NGS WBC 0-2 hpf 0-5 Not Available [address] [place], [address] 2024 20:49:42 05/09/20 24 2024 MICRO SCOPI C FINDI NGS RBC 3-5 hpf 0-2 abnormal Not Available [address] [place], [address] 2024 20:49:42 05/09/20 24 2024 MICRO SCOPI C FINDI NGS epithelial cells Few hpf negati ve Not Available [address] [place], [address] 2024 20:49:42 05/09/20 24 2024 MICRO SCOPI C FINDI NGS bacteria Negati ve hpf negati ve Not Available [address] [place], [address] 2024 20:49:42 05/09/20 24 2024 MICRO SCOPI C FINDI NGS crystals Negati ve hpf negati ve Not Available [address] [place], [address] 2024 20:49:42 05/09/20 24 2024 MICRO SCOPI C FINDI NGS mucus Trace negati ve Not Available [address] [place], [address] 2024 20:49:42 05/09/20 24 2024 MICRO SCOPI C FINDI NGS C S indicated? No Not Available [address] [place], [address] 2024 20:49:42 05/09/20 24 2024 CREAT ININE ,URIN E creatinine,u rine 178.13 mg/dL No Refer ence Range estab lishe d Not Available [address] [place], [address] 2024 21:01:41 05/09/20 24 2024 SODIU M, URINE sodium, urine 34 mmol/ L No Refer ence Range estab lishe d Not Available [address] [place], [address] 2024 21:01:41 05/09/20 24 2024 GRAM STAIN gram stain Gram Stain GRAM STAIN (REPO RT) No White Blood Cells Moder ate Gram Posit charles Cocci Not Available [address] [place], [address] 2024 21:19:42 05/09/20 24 05/12/2024 WOUND AEROB IC CULTU RE wound aerobic culture Wound Aerob ic Cultu re APPEA CHERRI Madeline l Erickson APPEA CHERRI Madeline l Erickson APPEA CHERRI Madeline l Erickson GROWT H(REP ORT) RARE GROWT H GROWT H(REP ORT) RARE GROWT H GROWT H(REP ORT) SCANT GROWT H Day 1 Resul t ISOLA JOHNNY BELOW Day 2 Resul t ISOLA JOHNNY BELOW Day 3 Resul t ISOLA JOHNNY BELOW O:NF (ORGA NISM ID: [id number]) - MADELINE L ERICKSON Wound Aerob ic Cultu re (ORGA NISM ID: [id number]) - GROWT H(REP ORT) (ORGA NISM ID: [id number]) - SCANT GROWT H Not Available [address] [place], [address] 05/12/2024 10:07:33 05/09/20 24 05/10/2024 BLOOD CULTU RE ( AGE => 9 YRS) blood culture ( age => 9 yrs) Blood Cultu re ( Age => 9 Yrs) NO GROWT H 24 HOURS Not Available [address] [place], [address] 05/10/2024 19:54:31 05/09/20 24 05/10/2024 BLOOD CULTU RE ( AGE => 9 YRS) blood culture ( age => 9 yrs) Blood Cultu re ( Age => 9 Yrs) NO GROWT H 24 HOURS Not Available [address] [place], [address] 05/10/2024 20:03:33 05/09/20 24 05/11/2024 BLOOD CULTU RE ( AGE => 9 YRS) blood culture ( age => 9 yrs) Blood Cultu re ( Age => 9 Yrs) NO GROWT H 48 HOURS Not Available [address] [place], [address] 05/11/2024 19:55:07 05/09/20 24 05/11/2024 BLOOD CULTU RE ( AGE => 9 YRS) blood culture ( age => 9 yrs) Blood Cultu re ( Age => 9 Yrs) NO GROWT H 48 HOURS Not Available [address] [place], [address] 05/11/2024 20:04:08 05/09/20 24 05/12/2024 BLOOD CULTU RE ( AGE => 9 YRS) blood culture ( age => 9 yrs) Blood Cultu re ( Age => 9 Yrs) NO GROWT H 72 HOURS Not Available [address] [place], [address] 05/12/2024 19:54:51 05/09/20 24 05/12/2024 BLOOD CULTU RE ( AGE => 9 YRS) blood culture ( age => 9 yrs) Blood Cultu re ( Age => 9 Yrs) NO GROWT H 72 HOURS Not Available [address] [place], [address] 05/12/2024 20:04:53 05/09/20 24 05/13/2024 BLOOD CULTU RE ( AGE => 9 YRS) blood culture ( age => 9 yrs) Blood Cultu re ( Age => 9 Yrs) NO GROWT H 96 HOURS Not Available [address] [place], [address] 05/13/2024 19:54:00 05/09/20 24 05/13/2024 BLOOD CULTU RE ( AGE => 9 YRS) blood culture ( age => 9 yrs) Blood Cultu re ( Age => 9 Yrs) NO GROWT H 96 HOURS Not Available [address] [place], [address] 05/13/2024 20:04:00 05/09/2005/14/2024 BLOOD CULTU RE ( AGE => 9 YRS) blood culture ( age => 9 yrs) Blood Cultu re ( Age => 9 Yrs) NO GROWT H 120 HOURS Not Available [address] [place], [address] 05/14/2024 19:54:56 05/09/20 24 05/14/2024 BLOOD CULTU RE ( AGE => 9 YRS) blood culture ( age => 9 yrs) Blood Cultu re ( Age => 9 Yrs) NO GROWT H 120 HOURS Not Available [address] [place], [address] 05/14/2024 20:40:58 05/28/2005/28/2024 COMPR EHENS CHARLES METAB OLIC PANEL calcium 8.9 mg/dL 8.5-10 .1 normal Not Available [address] [place], [address] 05/28/2024 17:53:10 05/28/2005/28/2024 COMPR EHENS CHARLES METAB OLIC PANEL glucose 132 mg/dL 74-106 high Not Available Jaymie harris [address] [place], [address] 05/28/2024 17:53:10 05/28/2005/28/2024 COMPR EHENS CHARLES METAB OLIC PANEL BUN 67 mg/dL 7-18 high Not Available Jaymie harris [address] [place], [address] 05/28/2024 17:53:10 05/28/20 24 05/28/2024 COMPR EHENS CHARLES METAB OLIC PANEL creatinine 3.3 mg/dL 0.70-1 .30 high Not Available [address] [place], [address] 05/28/2024 17:53:10 05/28/20 24 05/28/2024 COMPR EHENS CHARLES METAB OLIC PANEL estimated GFR 19.32 mL/min /1.73m 2 The eGFR is calcu lated from a serum creat inine using the CKD-E PI 2020 equat ion. Other varia bles requi red for the equat ion are gende r and age; this equat ion does not inclu de a race coeff icien t. This equat ion has simil ar overa ll perfo rmanc e to previ ous equat ions excep t value s may diffe r, in parti cular , in patie nts with highe r value s of eGFR and young er-ag ed adult s. Not Available [address] [place], [address] 05/28/2024 17:53:10 05/28/20 24 05/28/2024 COMPR EHENS CHARLES METAB OLIC PANEL total protein 6.3 g/dL 6.4-8. 2 low Not Available [address] [place], [address] 05/28/2024 17:53:10 05/28/20 24 05/28/2024 COMPR EHENS CHARLES METAB OLIC PANEL albumin 1.9 g/dL 3.4-5. 0 low Not Available [address] [place], [address] 05/28/2024 17:53:10 05/28/20 24 05/28/2024 COMPR EHENS CHARLES METAB OLIC PANEL bilirubin, total 0.19 mg/dL 0.2-1. 0 low Not Available [address] [place], [address] 05/28/2024 17:53:10 05/28/20 24 05/28/2024 COMPR EHENS CHARLES METAB OLIC PANEL alk phos 85 U/L 46-116 normal Not Available [address], [address] 05/28/2024 17:53:10 05/28/20 24 05/28/2024 COMPR EHENS CHARLES METAB OLIC PANEL sodium 139 mmol/ L 136-14 5 normal Not Available [address] [place], [address] 05/28/2024 17:53:10 05/28/20 24 05/28/2024 COMPR EHENS CHARLES METAB OLIC PANEL potassium 4.8 mmol/ L 3.5-5. 1 normal Not Available [address] [place], [address] 05/28/2024 17:53:10 05/28/20 24 05/28/2024 COMPR EHENS CHARLES METAB OLIC PANEL chloride 103 mmol/ L 98-107 normal Not Available [address] [place], [address] 05/28/2024 17:53:10 05/28/20 24 05/28/2024 COMPR EHENS CHARLES METAB OLIC PANEL CO2 21.8 mmol/ L 21.0-3 2.0 normal Not Available [address] [place], [address] 05/28/2024 17:53:10 05/28/20 24 05/28/2024 COMPR EHENS CHARLES METAB OLIC PANEL anion gap 14.2 mmol/ L 3-11 high Not Available [address] [place], [address] 05/28/2024 17:53:10 05/28/20 24 05/28/2024 COMPR EHENS CHARLES METAB OLIC PANEL AST 11 U/L 15-37 low Not Available Jaymie harris [address] [place], [address] 05/28/2024 17:53:10 05/28/20 24 05/28/2024 COMPR EHENS CHARLES METAB OLIC PANEL ALT 24 U/L 16-63 normal Not Available Jaymie harris [address] [place], [address] 05/28/2024 17:53:10 08/1405/28/2024 C-LIZZ CTIVE PROTE IN C-reactive protein 17.10 mg/dL <or=0. 5 high Not Available [address] [place], [address] 05/28/2024 17:53:11 05/28/20 24 05/28/2024 COMPL ETE BLOOD COUNT W/DIF F WBC 8.88 10_3/ uL 4.4-10 .8 normal Not Available [address] [place], [address] 05/28/2024 18:03:14 05/28/20 24 05/28/2024 COMPL ETE BLOOD COUNT W/DIF F RBC 2.31 10_6/ uL 4.36-5 .78 low Not Available [address] [place], [address] 05/28/2024 18:03:14 05/28/20 24 05/28/2024 COMPL ETE BLOOD COUNT W/DIF F HGB 7.1 g/dL 13.5-1 7.5 low Resul t verif ied by repea t otoniel sis Not Available [address] [place], [address] 05/28/2024 18:03:14 05/28/20 24 05/28/2024 COMPL ETE BLOOD COUNT W/DIF F HCT 21.8 % 40.0-5 0.0 low Not Available [address] [place], [address] 05/28/2024 18:03:14 05/28/20 24 05/28/2024 COMPL ETE BLOOD COUNT W/DIF F MCV 94 fL 80-95 normal Not Available Jaymie harris [address] [place], [address] 05/28/2024 18:03:14 05/28/2005/28/2024 COMPL ETE BLOOD COUNT W/DIF F MCH 30.7 pg 27.0-3 3.0 normal Not Available [address] [place], [address] 05/28/2024 18:03:14 05/28/20 24 05/28/2024 COMPL ETE BLOOD COUNT W/DIF F MCHC 32.6 % 32.0-3 6.0 normal Not Available [address] [place], [address] 05/28/2024 18:03:14 05/28/2005/28/2024 COMPL ETE BLOOD COUNT W/DIF F RDW 16.5 % 11.8-1 4.1 high Not Available [address] [place], [address] 05/28/2024 18:03:14 05/28/20 24 05/28/2024 COMPL ETE BLOOD COUNT W/DIF F platelet count 355 10_3/ uL 130-40 0 normal Not Available [address] [place], [address] 05/28/2024 18:03:14 05/28/2005/28/2024 COMPL ETE BLOOD COUNT W/DIF F MPV 11.7 fL 8.0-11 .0 high Not Available [address] [place], [address] 05/28/2024 18:03:14 05/28/20 24 05/28/2024 COMPL ETE BLOOD COUNT W/DIF F neutrophils % 75.0 % Not Available [address] [place], [address] 05/28/2024 18:03:14 05/28/20 24 05/28/2024 COMPL ETE BLOOD COUNT W/DIF F lymphocytes % 8.7 % Not Available [address] [place], [address] 05/28/2024 18:03:14 05/28/20 24 05/28/2024 COMPL ETE BLOOD COUNT W/DIF F monocytes % 12.8 % Not Available [address] [place], [address] 05/28/2024 18:03:14 05/28/20 24 05/28/2024 COMPL ETE BLOOD COUNT W/DIF F eosinophils % 2.4 % Not Available [address] [place], [address] 05/28/2024 18:03:14 05/28/20 24 05/28/2024 COMPL ETE BLOOD COUNT W/DIF F basophils % 0.6 % Not Available [address] [place], [address] 05/28/2024 18:03:14 05/28/20 24 05/28/2024 COMPL ETE BLOOD COUNT W/DIF F immature grans % 0.5 % Not Available [address] [place], [address] 05/28/2024 18:03:14 05/28/20 24 05/28/2024 COMPL ETE BLOOD COUNT W/DIF F nucleated RBC 0.0 % 0.0-0. 3 normal Not Available [address] [place], [address] 05/28/2024 18:03:14 05/28/20 24 05/28/2024 COMPL ETE BLOOD COUNT W/DIF F absolute neutrophil count 6.67 10_3/ uL 1.2-6. 7 normal Not Available [address] [place], [address] 05/28/2024 18:03:14 05/28/20 24 05/28/2024 COMPL ETE BLOOD COUNT W/DIF F absolute lymphocyte count 0.77 10_3/ uL 1.2-3. 4 low Not Available [address] [place], [address] 05/28/2024 18:03:14 05/28/20 24 05/28/2024 COMPL ETE BLOOD COUNT W/DIF F absolute monocyte count 1.14 10_3/ uL 0.1-0. 8 high Not Available [address] [place], [address] 05/28/2024 18:03:14 05/28/20 24 05/28/2024 COMPL ETE BLOOD COUNT W/DIF F absolute eosinophil count 0.21 10_3/ uL 0.0-0. 7 normal Not Available [address] [place], [address] 05/28/2024 18:03:14 05/28/20 24 05/28/2024 COMPL ETE BLOOD COUNT W/DIF F absolute basophil count 0.05 10_3/ uL 0.0-0. 2 normal Not Available [address] [place], [address] 05/28/2024 18:03:14 05/28/20 24 05/28/2024 COMPL ETE BLOOD COUNT W/DIF F diff comment RBC Morph Review ed Not Available [address] [place], [address] 05/28/2024 18:03:14 05/28/20 24 05/28/2024 COMPL ETE BLOOD COUNT W/DIF F RBC morphology See Below Not Available [address] [place], [address] 05/28/2024 18:03:14 05/28/2005/28/2024 COMPL ETE BLOOD COUNT W/DIF F anisocytosis 1+ Not Available [address] [place], [address] 05/28/2024 18:03:14 06/03/20 24 06/03/2024 COMPL ETE BLOOD COUNT NO DIFF WBC 10.42 10_3/ uL 4.4-10 .8 normal Not Available [address] [place], [address] 06/03/2024 17:33:46 06/03/20 24 06/03/2024 COMPL ETE BLOOD COUNT NO DIFF RBC 2.25 10_6/ uL 4.36-5 .78 low Not Available [address] [place], [address] 06/03/2024 17:33:46 06/03/20 24 06/03/2024 COMPL ETE BLOOD COUNT NO DIFF HGB 6.7 g/dL 13.5-1 7.5 critical low Criti anurag value repor sebastián to and readb ack from JACOBO Avery (RN), [facility] at 1729 06/03 by LAB.I FELSIHA Not Available [address] [place], [address] 06/03/2024 17:33:46 06/03/20 24 06/03/2024 COMPL ETE BLOOD COUNT NO DIFF HCT 21.0 % 40.0-5 0.0 low Criti anurag value repor sebastián to and phillipb ack from [facility] ABHAY Avery (RN), [facility] at 1729 06/03 by LAB.I FELISHA Not Available [address] [place], [address] 06/03/2024 17:33:46 06/03/20 24 06/03/2024 COMPL ETE BLOOD COUNT NO DIFF MCV 93 fL 80-95 normal Not Available aJymie harris [address] [place], [address] 06/03/2024 17:33:46 06/03/20 24 06/03/2024 COMPL ETE BLOOD COUNT NO DIFF MCH 29.8 pg 27.0-3 3.0 normal Not Available [address] [place], [address] 06/03/2024 17:33:46 06/03/20 24 06/03/2024 COMPL ETE BLOOD COUNT NO DIFF MCHC 31.9 % 32.0-3 6.0 low Not Available [address] [place], [address] 06/03/2024 17:33:46 06/03/20 24 06/03/2024 COMPL ETE BLOOD COUNT NO DIFF RDW 15.7 % 11.8-1 4.1 high Not Available [address] [place], [address] 06/03/2024 17:33:46 06/03/20 24 06/03/2024 COMPL ETE BLOOD COUNT NO DIFF platelet count 280 10_3/ uL 130-40 0 normal Not Available [address] [place], [address] 06/03/2024 17:33:46 06/03/20 24 06/03/2024 COMPL ETE BLOOD COUNT NO DIFF MPV 10.9 fL 8.0-11 .0 normal Not Available [address] [place], [address] 06/03/2024 17:33:46 06/03/20 24 06/03/2024 COMPR EHENS CHARLES METAB OLIC PANEL calcium 8.8 mg/dL 8.5-10 .1 normal Not Available [address] [place], [address] 06/03/2024 17:42:49 06/03/20 24 06/03/2024 COMPR EHENS CHARLES METAB OLIC PANEL glucose 141 mg/dL 74-106 high Not Available Jaymie rn [address] [place], [address] 06/03/2024 17:42:49 06/03/20 24 06/03/2024 COMPR EHENS CHARLES METAB OLIC PANEL BUN 62 mg/dL 7-18 high Not Available Jaymie rn [address] [place], [address] 06/03/2024 17:42:49 06/03/20 24 06/03/2024 COMPR EHENS CHARLES METAB OLIC PANEL creatinine 3.7 mg/dL 0.70-1 .30 panic high Criti anurag value repor sebastián to and readb ack from [facility] maría elena layne RN at 1735 06/03 by LAB.K ELISSA Resul t verif ied by repea t otoniel sis Not Available [address] [place], [address] 06/03/2024 17:42:49 06/03/20 24 06/03/2024 COMPR EHENS CHARLES METAB OLIC PANEL estimated GFR 16.85 mL/min /1.73m 2 The eGFR is calcu lated from a serum creat inine using the CKD-E PI 2020 equat ion. Other varia bles requi red for the equat ion are gende r and age; this equat ion does not inclu de a race coeff icien t. This equat ion has simil ar overa ll perfo rmanc e to previ ous equat ions excep t value s may diffe r, in parti cular , in patie nts with highe r value s of eGFR and young er-ag ed adult s. Not Available [address] [place], [address] 06/03/2024 17:42:49 06/03/20 24 06/03/2024 COMPR EHENS CHARLES METAB OLIC PANEL total protein 6.2 g/dL 6.4-8. 2 low Not Available [address] [place], [address] 06/03/2024 17:42:49 06/03/20 24 06/03/2024 COMPR EHENS CHARLES METAB OLIC PANEL albumin 1.8 g/dL 3.4-5. 0 low Not Available [address] [place], [address] 06/03/2024 17:42:49 06/03/20 24 06/03/2024 COMPR EHENS CHARLES METAB OLIC PANEL bilirubin, total 0.19 mg/dL 0.2-1. 0 low Not Available [address] [place], [address] 06/03/2024 17:42:49 06/03/20 24 06/03/2024 COMPR EHENS CHARLES METAB OLIC PANEL alk phos 94 U/L 46-116 normal Not Available [address], [address] 06/03/2024 17:42:49 06/03/20 24 06/03/2024 COMPR EHENS CHARLES METAB OLIC PANEL sodium 136 mmol/ L 136-14 5 normal Not Available [address] [place], [address] 06/03/2024 17:42:49 06/03/20 24 06/03/2024 COMPR EHENS CHARLES METAB OLIC PANEL potassium 4.3 mmol/ L 3.5-5. 1 normal Not Available [address] [place], [address] 06/03/2024 17:42:49 06/03/20 24 06/03/2024 COMPR EHENS CHARLES METAB OLIC PANEL chloride 102 mmol/ L 98-107 normal Not Available [address] [place], [address] 06/03/2024 17:42:49 06/03/20 24 06/03/2024 COMPR EHENS CHARLES METAB OLIC PANEL CO2 24.3 mmol/ L 21.0-3 2.0 normal Not Available [address] [place], [address] 06/03/2024 17:42:49 06/03/20 24 06/03/2024 COMPR EHENS CHARLES METAB OLIC PANEL anion gap 9.7 mmol/ L 3-11 normal Not Available [address] [place], [address] 06/03/2024 17:42:49 06/03/20 24 06/03/2024 COMPR EHENS CHARLES METAB OLIC PANEL AST 12 U/L 15-37 low Not Available Jaymie harris [address] [place], [address] 06/03/2024 17:42:49 06/03/20 24 06/03/2024 COMPR EHENS CHARLES METAB OLIC PANEL ALT 18 U/L 16-63 normal Not Available Jaymie [address] [place], [address] 06/03/2024 17:42:49 06/03/20 24 06/03/2024 C-LIZZ CTIVE PROTE IN C-reactive protein 15.12 mg/dL <or=0. 5 high Not Available [address] [place], [address] 06/03/2024 17:42:49 06/03/20 24 06/03/2024 LACTA TE lactate 1.1 mmol/ L 0.9-1. 7 normal Not Available [address] [place], [address] 06/03/2024 20:45:22 06/03/20 24 06/03/2024 COMPL ETE BLOOD COUNT W/DIF F WBC 10.73 10_3/ uL 4.4-10 .8 normal Not Available [address] [place], [address] 06/03/2024 20:47:23 06/03/20 24 06/03/2024 COMPL ETE BLOOD COUNT W/DIF F RBC 2.58 10_6/ uL 4.36-5 .78 low Not Available [address] [place], [address] 06/03/2024 20:47:23 06/03/20 24 06/03/2024 COMPL ETE BLOOD COUNT W/DIF F HGB 7.6 g/dL 13.5-1 7.5 low Not Available [address] [place], [address] 06/03/2024 20:47:23 06/03/20 24 06/03/2024 COMPL ETE BLOOD COUNT W/DIF F HCT 24.3 % 40.0-5 0.0 low Not Available [address] [place], [address] 06/03/2024 20:47:23 06/03/20 24 06/03/2024 COMPL ETE BLOOD COUNT W/DIF F MCV 94 fL 80-95 normal Not Available Jaymie [address] [place], [address] 06/03/2024 20:47:23 06/03/20 24 06/03/2024 COMPL ETE BLOOD COUNT W/DIF F MCH 29.5 pg 27.0-3 3.0 normal Not Available [address] [place], [address] 06/03/2024 20:47:23 06/03/20 24 06/03/2024 COMPL ETE BLOOD COUNT W/DIF F MCHC 31.3 % 32.0-3 6.0 low Not Available [address] [place], [address] 06/03/2024 20:47:23 06/03/20 24 06/03/2024 COMPL ETE BLOOD COUNT W/DIF F RDW 16.2 % 11.8-1 4.1 high Not Available [address] [place], [address] 06/03/2024 20:47:23 06/03/20 24 06/03/2024 COMPL ETE BLOOD COUNT W/DIF F platelet count 302 10_3/ uL 130-40 0 normal Not Available [address] [place], [address] 06/03/2024 20:47:23 06/03/20 24 06/03/2024 COMPL ETE BLOOD COUNT W/DIF F MPV 10.1 fL 8.0-11 .0 normal Not Available [address] [place], [address] 06/03/2024 20:47:23 06/03/20 24 06/03/2024 COMPL ETE BLOOD COUNT W/DIF F neutrophils % 73.4 % Not Available [address] [place], [address] 06/03/2024 20:47:23 06/03/20 24 06/03/2024 COMPL ETE BLOOD COUNT W/DIF F lymphocytes % 10.5 % Not Available [address] [place], [address] 06/03/2024 20:47:23 06/03/20 24 06/03/2024 COMPL ETE BLOOD COUNT W/DIF F monocytes % 11.8 % Not Available [address] [place], [address] 06/03/2024 20:47:23 06/03/20 24 06/03/2024 COMPL ETE BLOOD COUNT W/DIF F eosinophils % 3.5 % Not Available [address] [place], [address] 06/03/2024 20:47:23 06/03/20 24 06/03/2024 COMPL ETE BLOOD COUNT W/DIF F basophils % 0.4 % Not Available [address] [place], [address] 06/03/2024 20:47:23 06/03/20 24 06/03/2024 COMPL ETE BLOOD COUNT W/DIF F immature grans % 0.4 % Not Available [address] [place], [address] 06/03/2024 20:47:23 06/03/20 24 06/03/2024 COMPL ETE BLOOD COUNT W/DIF F nucleated RBC 0.0 % 0.0-0. 3 normal Not Available [address] [place], [address] 06/03/2024 20:47:23 06/03/20 24 06/03/2024 COMPL ETE BLOOD COUNT W/DIF F absolute neutrophil count 7.87 10_3/ uL 1.2-6. 7 high Not Available [address] [place], [address] 06/03/2024 20:47:23 06/03/20 24 06/03/2024 COMPL ETE BLOOD COUNT W/DIF F absolute lymphocyte count 1.13 10_3/ uL 1.2-3. 4 low Not Available [address] [place], [address] 06/03/2024 20:47:23 06/03/20 24 06/03/2024 COMPL ETE BLOOD COUNT W/DIF F absolute monocyte count 1.27 10_3/ uL 0.1-0. 8 high Not Available [address] [place], [address] 06/03/2024 20:47:23 06/03/20 24 06/03/2024 COMPL ETE BLOOD COUNT W/DIF F absolute eosinophil count 0.38 10_3/ uL 0.0-0. 7 normal Not Available [address] [place], [address] 06/03/2024 20:47:23 06/03/20 24 06/03/2024 COMPL ETE BLOOD COUNT W/DIF F absolute basophil count 0.04 10_3/ uL 0.0-0. 2 normal Not Available [address] [place], [address] 06/03/2024 20:47:23 06/03/20 24 06/03/2024 COMPL ETE BLOOD COUNT W/DIF F diff comment RBC Morph Review ed Not Available [address] [place], [address] 06/03/2024 20:47:23 06/03/20 24 06/03/2024 COMPL ETE BLOOD COUNT W/DIF F RBC morphology See Below Not Available [address] [place], [address] 06/03/2024 20:47:23 06/03/20 24 06/03/2024 COMPL ETE BLOOD COUNT W/DIF F hypochromasi a 2+ Not Available Jory morales [address] [place], [address] 06/03/2024 20:47:23 06/03/20 24 06/03/2024 PROTH ROMBI N TIME prothrombin time 14.3 sec 9.1-11 .1 high Not Available [address] [place], [address] 06/03/2024 20:52:23 06/03/20 24 06/03/2024 PROTH ROMBI N TIME INR 1.5 0.9-1. 1 high Recom atif d INR thera peuti c range s for orall y admin ister ed drugs are as follo ws: -Chon dard Inten sity 2.0 to 3.0 -High er Inten sity 3.0 to 4.5 Not Available [address] [place], [address] 06/03/2024 20:52:23 06/03/20 24 06/03/2024 PTT ACTIV ATED PTT activated 33.0 sec 23.6-3 2.8 high Hepar in Thera peuti c Range for PTT = 52-84 secon ds New Hepar in Thera peuti c Range 11/20 Not Available [address] [place], [address] 06/03/2024 20:52:24 06/03/20 24 06/03/2024 COMPR EHENS CHARLES METAB OLIC PANEL calcium 9.3 mg/dL 8.5-10 .1 normal Not Available [address] [place], [address] 06/03/2024 20:59:24 06/03/20 24 06/03/2024 COMPR EHENS CHARLES METAB OLIC PANEL glucose 122 mg/dL 74-106 high Not Available Jaymie harris [address] [place], [address] 06/03/2024 20:59:24 06/03/20 24 06/03/2024 COMPR EHENS CHARLES METAB OLIC PANEL BUN 65 mg/dL 7-18 high Not Available Jaymie harris [address] [place], [address] 06/03/2024 20:59:24 06/03/20 24 06/03/2024 COMPR EHENS CHARLES METAB OLIC PANEL creatinine 4.0 mg/dL 0.70-1 .30 panic high Criti anurag value repor sebastián to and readb ack from [facility] (RN), ED at 06/03 by LAB.I FELISHA Not Available [address] [place], [address] 06/03/2024 20:59:24 06/03/20 24 06/03/2024 COMPR EHENS CHARLES METAB OLIC PANEL estimated GFR 15.34 mL/min /1.73m 2 The eGFR is calcu lated from a serum creat inine using the CKD-E PI 2020 equat ion. Other varia bles requi red for the equat ion are gende r and age; this equat ion does not inclu de a race coeff icien t. This equat ion has simil ar overa ll perfo rmanc e to previ ous equat ions excep t value s may diffe r, in parti cular , in patie nts with highe r value s of eGFR and young er-ag ed adult s. Not Available [address] [place], [address] 06/03/2024 20:59:24 06/03/20 24 06/03/2024 COMPR EHENS CHARLES METAB OLIC PANEL total protein 7.5 g/dL 6.4-8. 2 normal Not Available [address] [place], [address] 06/03/2024 20:59:24 06/03/20 24 06/03/2024 COMPR EHENS CHARLES METAB OLIC PANEL albumin 1.9 g/dL 3.4-5. 0 low Not Available [address] [place], [address] 06/03/2024 20:59:24 06/03/20 24 06/03/2024 COMPR EHENS CHARLES METAB OLIC PANEL bilirubin, total 0.18 mg/dL 0.2-1. 0 low Not Available [address] [place], [address] 06/03/2024 20:59:24 06/03/20 24 06/03/2024 COMPR EHENS CHARLES METAB OLIC PANEL alk phos 113 U/L 46-116 normal Not Available [address] [place], [address] 06/03/2024 20:59:24 06/03/20 24 06/03/2024 COMPR EHENS CHARLES METAB OLIC PANEL sodium 136 mmol/ L 136-14 5 normal Not Available [address] [place], [address] 06/03/2024 20:59:24 06/03/20 24 06/03/2024 COMPR EHENS CHARLES METAB OLIC PANEL potassium 4.6 mmol/ L 3.5-5. 1 normal Not Available [address] [place], [address] 06/03/2024 20:59:24 06/03/20 24 06/03/2024 COMPR EHENS CHARLES METAB OLIC PANEL chloride 102 mmol/ L 98-107 normal Not Available [address] [place], [address] 06/03/2024 20:59:24 06/03/20 24 06/03/2024 COMPR EHENS CHARLES METAB OLIC PANEL CO2 24.9 mmol/ L 21.0-3 2.0 normal Not Available [address] [place], [id number] 06/03/2024 20:59:24 06/03/20 24 06/03/2024 COMPR EHENS CHARLES METAB OLIC PANEL anion gap 9.1 mmol/ L 3-11 normal Not Available [address] [place], [id number] 06/03/2024 20:59:24 06/03/20 24 06/03/2024 COMPR EHENS CHARLES METAB OLIC PANEL AST 12 U/L 15-37 low Not Available Jaymie harris [address] [place], [id number] 06/03/2024 20:59:24 06/03/20 24 06/03/2024 COMPR EHENS CHARLES METAB OLIC PANEL ALT 20 U/L 16-63 normal Not Available Jaymie harris [address] [place], [id number] 06/03/2024 20:59:24 06/03/20 24 06/03/2024 MAGNE SIUM magnesium 1.9 mg/dL 1.8-2. 4 normal Not Available [address] [place], [id number] 06/03/2024 20:59:25 06/03/20 24 06/03/2024 TROPO TI I troponin I < 50 NG/L < or =60 Not Available [address] [place], [id number] 06/03/2024 21:03:28 06/03/20 24 06/03/2024 NT-NE OBNP nt-probnp 6403 pg/mL <300 high NT-pr oBNP value s <300 pg/mL have a 98% negat charles predi ctive value for exclu ding acute conge stive heart failu re (CHF) . NT-pr oBNP value s >450 pg/mL are consi stent with CHF in adult s <50 years of age. A diagn ostic cut-o ff of 900 pg/mL has been sugge sted in adult s >50 years of age in the absen ce of renal failu re. A cut-o ff of 1200 pg/mL for patie nts with an eGFR less than 60 yield s a diagn ostic sensi tivit y and speci ficit y of 89% and 72% for acute conge stive failu re. NOTE: Supra -phys iolog ic doses of Bioti n(B7) may cause false negat charles resul ts. Not Available [address] [place], [id number] 06/03/2024 21:03:28 06/03/20 24 06/03/2024 P B O Positi ve Not Available Wilberto [address] [place], [address] 06/03/2024 21:20:26 06/03/20 24 06/04/2024 HIV-1 /2 AG AB SCREE N HIV-1/2 Ag Ab screen Negati ve negati ve If acute HIV-1 infec tion is suspe cted in a high risk patie nt, submi t plasm a speci men for HIV-1 RNA quant itati on test. Fourt h Gener ation assay [facility]fo [facility]. Test perfo rmed or refer red by [facility] [address] [place] [address] Not Available [address] [place], [address] 06/05/2024 09:22:31 06/03/20 24 06/04/2024 HEPAT ITIS C AB W RFLX HCV PCR hepatitis C Ab W rflx HCV PCR Negati ve negati ve Test perfo rmed or refer red by [facility] [address] [place] [address] Not Available [address] [place], [address] 06/05/2024 09:22:32 06/03/20 24 06/04/2024 HEPAT ITIS B SURFA CE AG hepatitis B surface Ag Negati ve negati ve Test perfo rmed or refer red by [facility] [address], [place] [address] Not Available [address] [place], [address] 06/05/2024 09:22:33 06/03/20 24 06/04/2024 HEPAT ITIS C AB W RFLX HCV PCR hepatitis C Ab W rflx HCV PCR Negati ve negati ve Test perfo rmed or refer red by [facility] [address] [place] [address] Not Available [address] [place], [address] 06/05/2024 09:22:34 06/03/20 24 06/04/2024 HEPAT ITIS B SURFA CE AG hepatitis B surface Ag Negati ve negati ve Test perfo rmed or refer red by [facility] [address], [place] [address] Not Available [address] [place], [address] 06/05/2024 09:22:35 05/09/20 24 2024 x-ray imagi ng danielle t Kisha santiago Name: Jossy Leyva Unit #: [id number] Loc: ER Orderi ng Provid er: Yelena Henley Accbud t #: [id number] Status : PRE ER Primar y Care Provid er: Rishi on,Pat bimal Date of Exam: Sex: M Admiss ion Date: : 1954 Age: 69 Exam(s ) XR PORTAB LE CHEST AP EXAM: XR PORTAB LE CHEST AP CLINIC AL HISTOR Y: shortn ess of breath . TECHNI QUE: 2D digita l imagin g was perfor med. COMPAR PARTH: CR,XR XR CHEST 2V PA LATERA L from 2019 FINDIN GS: Single AP portab le view. Heart size is upper normal . The medias tinum is not widene d. Left lung is clear. Increa sed densit y over the right noted but appear s to be relate d to overla pping scapul ar shadow . No obviou s air bronch ograms . IMPRES LEDA: No obviou s acute pulmon sukhdeep findin [...] the addres s above. Thank- you. crystal [facility] [address] [facility] [address] [place], [address] 05/12/2024 08:01:30 05/09/20 24 2024 vrad repor t Patien t Name: Jossy Leyva Unit #: [id number] Loc: ER Orderi ng Provid er: Accoun t #: [id number] Status : REG ER Primar y [...] or iterat charles recons tructi on. COMPAR PARTH: CR XR PORTAB LE CHEST AP 024 [...] tissue s: Mild gyneco mastia . IMPRES LEDA: No acute pulmon sukhdeep infilt rate or [...] abdome n and pelvis with t contra st. 3D render ing (Not superv ised by radiol ogist) : MIP and/or 3D recons tructe d images were create d by the techno logist . Radiat ion optimi zation : All CT scans at this doctors hospital[facility] ty use at least one of these dose optimi zation techni ques: automa sebastián exposu re contro l; mA and/or kV adjust ment per patien t size (inclu ellyn target ed exams where dose is matche d to clinic al indica tion); or iterat charles recons tructi on. COMPAR PARTH: US RENAL 020 9:38 AM FINDIN GS: [...] ntaini ng inguin al hernia s. IMPRES LEDA: No acute intra- abdomi nal or pelvic proces s. Dictat ed and Authen ticate d by: Andrew downs MD. Orderi ng:Pamela Castillo MD Access ion#=[id number] Ordere d By: CC: ------ ------ [...] the addres s above. Thank- you. crystal [facility] [address] [place], [address] 05/12/2024 08:01:30 05/09/20 24 2024 vrad danielle santiago Name: Jossy Leyva Unit #: [id number] Loc: ER Orderi ng Provid er: Accoun t #: [id number] Status : REG ER Primar y Care Provid er: Rishi on,Pat bimal Date of Exam: Sex: M : 07/26/ 1955 Age: 69 Exam(s ) PROCED URE INFORM [...] zation : All CT scans at this doctors hospitali ty use at least one of these dose optimi zation techni ques: automa sebastián exposu re contro l; mA and/or kV adjust ment per patien t size (inclu ellyn target ed exams where dose is matche d to clinic al indica tion); or iterat charles recons tructi on. COMPAR PARTH: US EXTREM ITY VENOUS BI 020 9:45 [...] red arteri al calcif icatio ns. IMPRES LEDA: 1. Right knee, right tib-fi b, right ankle, and right foot region soft tissue edema / cellul itis. 2. No discre te soft tissue absces s. 3. Soft tissue irregu larity involv ing the distal right 2nd toe. 4. No CT eviden ce of osteom yeliti s. Dictat ed and Ying lester d by: Andrew downs MD. Orderi ng:Pamela Castillo MD Access ion#=[id number] Orderjaren d By: CC: ------ ------ ------ ------ ------ ------ ------ ------ ------ ------ ------ ------ ---- Dictat ed By: Report s vrad 1940 Transc ribed By: Di Merge 1940 This is privil eged, confid ential inform ation intend ed only for the provid er named. Any use or distri bution by any person other than this provid er is strict ly prohib ited. If you receiv e this report in error, please notify us immedi ately at [phone] and return the origin al report to us at the addres s above. Thank- you. [email or web address] [facility] [address], [place], [address] 05/12/2024 08:01:30 05/10/20 24 05/10/2024 CT imagi ng repor t Kisha t Name: Jossy Leyva Unit #: [id number] Loc: ER Orderi ng Provid er: Yelena Henley Accoun t #: [id number] Status : DEP ER Primar [...] were create d and review ed. COMPAR PARTH: No exams were availa ble for compar parth FINDIN GS: Bones: The osseou s struct [...] aque foreig n body is seen. IMPRES LEDA: 1. Edema seen in the soft tissue [...] facili ty are submit sebastián to the [facility] al Radiol ogy Data Regist ry (NRDR) [...] error, please notify us immeddayron richards at and return the origin al report to us at the addres s above. Thank- you. [email or web address] [facility] [address], [place], [address] 05/12/2024 08:01:31 05/11/20 24 05/11/2024 CT imagi ng repor t Patijose t Name: Jossy Leyva Unit #: [id number] Loc: ER Orderi ng Provid er: Timothy rs,Yelena n PRASANNA Accoun t #: [id number] Status : DEP ER Primar [...] were create d and review ed COMPAR PARTH: CR XR PORTAB LE CHEST AP from [...] limits for the patien t's age. IMPRES LEDA: 1. No acute pulmon sukhdeep proces s. [...] the addres s above. Thank- you. crystal [facility] [address], [place], [address] 05/12/2024 08:01:31 06/03/20 24 06/03/2024 vrad repor t Patien t Name: Jossy Leyva Unit #: [id number] Loc: ER Orderi ng Provid er: Accoun t #: [id number] Status : REG ER Primar y [...] of the chest. Views: 2 views. COMPAR PARTH: CT CHEST/ ABD/PE L WO 024 7:36 PM FINDIN GS: Tubes, cathet ers and device s: There is a right marketing summer intern al jugula r centra l venous cathet er presen t within tip of the cathet er at the cavoat rial juncti on. Lungs: There is pulmon sukhdeep venous conges tion. There is diffus e [...] c region are unrema rkable . IMPRES LEDA: 1. Probab le conges tive heart failur e. Underl otf inflam matory or infect ious proces s not exclud ed. 2. There is a right marketing summer intern al jugula r centra l venous cathet er presen t within tip of the cathet er at the cavoat rial juncti on. 3. There is a probab le small left pleura l effusi on. Dictat ed and Ying lester d by: Teofilo Torres MD. Orderi ng:Bessie Ch MD Access ion#=[id number] Orderjaren d By: CC: ------ ------ ------ ------ ------ ------ ------ ------ ------ ------ ------ ------ ---- Dictat ed By: Report s vrad 2052 Transc ribed By: Jeanine Puga 2052 This is privil eged, confid ential inform ation intend ed only for the provid er named. Any use or distri bution by any person other than this provid er is strict ly prohib ited. If you receiv e this report in error, please notify us immedi ately at [phone] and return the origin al report to us at the addres s above. Thank- you. crystal [facility] [address] [facility] [place], [address] 06/04/2024 07:27:19 06/03/2006/03/2024 vrad repor t Patien t Name: Jossy Leyva Unit #: [id number] Loc: ER Orderi ng Provid er: Accoun t #: [id number] Status : REG ER Primar y [...] the head withou t contra st. COMPAR PARTH: No releva nt prior studie s availa [...] judy perior bital soft tissue s. IMPRES LEDA: 1. No eviden ce of an acute [...] MD. Orderi ng:Bessie Ch MD Access ion#=[id number] Orderjaren d By: CC: ------ ------ ------ ------ [...] the addres s above. Thank- you. crystal [facility] [address] [facility] [place], [address] 06/04/2024 07:27:19 06/04/20 24 06/04/2024 x-ray imagi niranjan santiago Patijose t Name: Jossy Leyva Unit #: [id number] Loc: ER Yemi Araujo er: Jing Srivastava Accoun t #: [id number] Status : DEP ER Primar y Care Provid er: Rishi on,Pat bimal Date of Exam: Sex: M Admiss ion Date: : 1954 Age: 69 Exam(s ) XR CHEST 2V PA LATERA L EXAM: XR CHEST 2V PA LATERA L CLINIC AL HISTOR Y: SOB TECHNI QUE: 2D digita l imagin g was perfor med. Two views. COMPAR PARTH: CR XR PORTAB LE CHEST AP from 2023 FINDIN GS: Exam is limite d by under penetr ation and semi erect positi oning. HEART: Enlarg ed. Aorta: Not dilate d. PULMON SUKHDEEP VASCUL ATURE: Promin ent. MEDIAS TINUM: Unrema rkable . LUNGS: No focal area of consol idatio n. PLEURA L SPACE: Questi on of tiny pleura l effusi ons. No pneumo thorax . BONE:U nremar kable for age. SOFT TISSUE S: Unrema rkable . Right marketing summer intern al jugula r centra l venous cathet er presen t. IMPRES LEDA: Findin gs consis tent with mild CHF. [...] error, please notify us immedi camily at [phone] and return the origin al report to us at the addres s above. Thank- you. crystal [facility] [address] [facility] [place], [address] 06/04/2024 09:25:40 06/04/20 24 06/04/2024 CT imagi ng repor t Patien t Name: Jossy Leyva Unit #: [id number] Loc: ER Orderi ng Provid er: Jing Srivastava t #: [id number] Status : DEP ER Primar [...] were create d and review ed COMPAR PARTH: No exams were availa ble for compar parth FINDIN GS: Ventri cles and Extra axial [...] orbit. ORBITS : Unrema rkable . PITUIT SUKHDEEP: Not enlarg ed. IMPRES LEDA: No acute intrac ranial proces s. Nasal fractu res, age indete rminat e. RADIAT ION DOSE DELIVE RED: Total DLP DATA REPOSI TORY: All CT scans at this facili ty are submit sebastián to the [facility] al Radiol ogy Data Regist ry (NRDR) [...] tion); or iterat charles recons tructi on. 819- 029: Total DLP = 0.00 mGy-cm Ordere d By: Jing Srivastava CC: ------ ------ ------ ------ ------ ------ ------ ------ ------ ------ ------ ------ ---- Dictat ed By: Sarthak Bhatia 49 [id number] Transc ribed By: Betzy Cordova 848 This is privil eged, confid ential inform [...] the addres s above. Thank- you. crystal [facility] [address] [place], [address] 06/04/2024 09:25:40 06/06/2006/06/2024 CT imagi ng repor t Patien t Name: Jossy Leyva Unit #: [id number] Loc: ER Orderi ng Provid er: Ar Osorio M.D. Accoun t #: [id number] Status : REG ER Primar y Care Provid er: Rishi hall,Chanda wallis Date of Exam: Sex: M : 1954 Age: 69 Exam(s ) a CT:CT abdome n pelvis wo Exam(s ) CT ABDOME N PELVIS WO EXAM: CT ABDOME N PELVIS WO CLINIC AL HISTOR Y: Lower GI bleed. TECHNI QUE: Imagin g Protoc ol: Axial comput ed tomogr aphy images with villanueva l and sagitt al reform atted images were create d and review ed. COMPAR PARTH: CT,NM MPI RESTIN G AND STRESS from [address] CHEST/ ABD/PE L WO from 2023 FINDIN GS: The examin ation is limite d due to patien t motion artifa ct. ABDOME N: Lung Bases: Cardio megaly . There is a small left pleura l effusi on. Liver: Normal densit y. No measur able mass. Gallbl adder and biliar y tract: No radiod ense calcul us or biliar y ductal dilati on. Pancre as: Normal densit y, no abnorm al calcif icatio ns or inflam matory proces s. Spleen : Normal . Kidney s: Normal size, contou r and axis.N o radiod ense stones or obstru ctive uropat hy. No masses seen. Adrena l glands : No mass is seen. Lymph nodes: Specif ic mildly enlarg ed lymph nodes are seen in the retrop eriton eum. Abdomi nal Aorta: Abdomi nal portio n non-di lated. Athero sclero tic calcif icatio n is presen t. PELVIS : Bladde r:Ther e is a Godinez cathet er in a decomp ressed urinar y bladde r. Bowel: There is a large amount of stool in the rectum which may repres ent fecal impact ion. Please correl ate clinic ally. No rectal wall thicke reji is seen. The stomac h is incomp letely disten ded limiti ng evalua tion. No bowel wall thicke reji or obstru ction is presen t. No eviden ce of append icitis . Perito live cavity : No ascite s, collec tion or mesent dean inflam matory respon se. No free air. Reprod uctive organs : Unrema rkable as visual ized. Bones: Age-ap propri ate degene rative change s are seen in the spine. Soft Tissue s: There is edema seen in the soft tissue s of the left latera l chest wall. No focal fluid collec tion is seen to sugges t an absces s. This is nonspe cific. IMPRES LEDA: 1. Eviden ce of nephro lithia sis or hydron ephros is. 2. Large amount of stool in the rectum which may repres ent fecal impact ion. No bowel wall thicke reji or obstru ction is seen. 3. Cardio megaly . Small left pleura l effusi on. RADIAT ION DOSE DELIVE RED: Total DLP DATA REPOSI TORY: All CT scans at this doctors hospitali ty are submit sebastián to the [facility] al Radiol ogy Data Regist ry (NRDR) Dose Index Regist ry (DIR) with the [employer] (ACR). RADIAT ION OPTIMI ZATION : All CT scans at this doctors hospitali use at least one of these dose optimi zation techni ques: automa sebastián exposu re contro l; mA and/or kV adjust ment per patien t size (inclu ellyn target ed exams where dose is matche d to clinic al indica tion); or iterat charles recons tructi on. 032: Total DLP = 0.00 mGy-cm Ordere d By: Ar Osorio M.D. CC: ------ ------ ------ ------ ------ ------ ------ ------ ------ ------ ------ ------ ---- Dictat ed By: Moiz Sotelo M.D. 1833 Transc ribed By: Moiz Sotelo 1833 This is privil eged, confid ential inform ation intend ed only for the provid er named. Any use or distri bution by any person other than this provid er is strict ly prohib ited. If you receiv e this report in error, please notify us immpastor richards at and return the origin al report to us at the addres s above. Thank- you. INTERFACE [facility] [address] [place], [address] 06/06/2024 18:39:04 06/06/20 24 06/06/2024 x-ray imagi ng danielle santiago Name: Jossy Leyva Unit #: [id number] Loc: ER Yemi ureña Provid er: Ar Osorio M.D. Accoun t #: [id number] Status : REG ER Primar y Care Provid er: Rishi on,Chanda bimal Date of Exam: Sex: M Admiss ion Date: : 1954 Age: 69 Exam(s ) XR CHEST 1V IN DI DEPT EXAM: XR CHEST 1V IN DI DEPT CLINIC AL HISTOR Y: SOB TECHNI QUE: 2D digita l imagin g was perfor med of the chest. One image was obtain ed. An AP view was obtain ed. COMPAR PARTH: CR,XR XR CHEST 2V PA LATERA L from 2023 FINDIN GS: MEDIAS TINUM: Normal . HEART: Cardio megaly . PULMON SUKHDEEP VASCUL ATURE: Normal . LUNGS: No focal consol idatin g infilt rates are seen. PLEURA L SPACE: There is blunti ng of the left costop hrenic angle sugges ting a left pleura l effusi on. No right pleura l effusi on. No pneumo thorax . BONE:W ithin normal limits for the patien t's age. OTHER FINDIN GS:Pat ient's right IJ cathet er is in stable positi on. IMPRES LEDA: Small left pleura l effusi on. Cardio megaly . DATA REPOSI TORY: RADIAT ION DOSE DELIVE RED: Clemente lindo By: Ar Osorio M.D. CC: ------ ------ ------ ------ ------ ------ ------ ------ ------ ------ ------ ------ - Dictat ed By: Moiz Sotelo M.D. 1836 Transc ribed By: Moiz Sotelo 1836 This is privil eged, confid ential inform ation intend ed only for the provid er named. Any use or distri bution by any person other than this provid er is strict ly prohib ited. If you receiv e this report in error, please notify us immedi maurice at and return the origin al report to us at the addres s above. Thank- you. INTERFACE [place] [address], [place], [address] 06/06/2024 18:43:10 Result Notes None recorded. Problems Name Problem SNOMED Code Status Onset Date Resolution Date Notes Provider Name and Address Organization Details Recorded Time Chronic obstruct charles pulmonar y disease 51668046 Active 201912/15/19 22 - Comments only - Lynette Bill RPA - lungs clear on exam. nonlabor ed. He stopped smoking greater than 10 years ago. Problem Code: J44.9; Problem Code Type: ICD-10; Not Available [facility] 3 05:06:14 Atrial fibrilla tion [id number] Active 201911/27/19 23 - Comments only - Lynette Bill RPA - Continue s to be rate controll ed. Continue s on Xarelto. We will check a CBC. Problem Code: I48.91; Problem Code Type: ICD-10; Not Available [facility] 3 05:06:14 Essentia l hyperten leda 86337842 Active 201911/27/19 23 - Comments only - Lynette Bill RPA - Well controll ed on current medicati on manageme nt. Problem Code: I10; Problem Code Type: ICD-10; Not Available [facility] 3 05:06:14 Type 2 diabetes mellitus without complica tion 304641348 Active 201903/15/20 22 - Comments only - Lynette Bill RPA - Signific ant improvem ent in hemoglob in A1c. From over 13 3 months ago to 6.9 today. He feels hypoglyc emic when his blood sugars get into the 90s. His short acting insulin has been lowered to 8 units prior to meals. Continue s with Lantus and Trulicit y. We will likely switch him to Victoza due to cost. Problem Code: E11.9; Problem Code Type: ICD-10; Not Available [facility] 3 05:06:14 Heart failure 59206612 Active 201911/27/19 23 - Comments only - Lynette Bill RPA - Appears stable on current medicati on manageme nt. No signific ant changes in lower extremit y edema. If anything a bit improved . He continue s on carvedil ol and furosemi de. Encourag ed more routine exercise . Problem Code: I50.9; Problem Code Type: ICD-10; Not Available [facility] 3 05:06:14 Peripher al vascular disease 074944411 Active 2019 Problem Code: I73.9; Problem Code Type: ICD-10; Not Available [facility] 3 05:06:14 Screenin g for malignan t neoplasm of prostate Active 201907/26/20 20 - Comments only - Lynette Bill RPA - We will check a PSA Problem Code: Z12.5; Problem Code Type: ICD-10; Not Available [facility] 3 05:06:14 Dystroph ia unguium 92559272 Active 201909/06/20 20 - Comments only - Lynette Bill RPA - Referral has been made to podiatry . He has not heard on this referral yet Problem Code: L60.3; Problem Code Type: ICD-10; Not Available [facility] 3 05:06:15 Pain in thoracic spine 873891591 Active 201908/19/20 20 - Comments only - Lynette Bill RPA - herniate d disk 1997. 2017 MRI with L5-S1 spinal stenosis - subseque nt steroid injectio n and ablation . Problem Code: M54.9; Problem Code Type: ICD-10; Not Available [facility] 3 05:06:15 Edema 808711329 Active 201912/15/19 22 - Comments only - Lynette Bill RPA - improved from a year ago. He restrict s sodium. Complian t with his cardiac meds. No evidence of cellulit is which has been a signific ant issue in past. Problem Code: R60.9; Problem Code Type: ICD-10; Not Available [facility] 3 05:06:15 Malaise 185067762 Active 202101/12/20 22 - Improved - Shaila Stallworth - He feels that he is getting stronger and making good progress with physical therapy. I advised that I would like to keep this therapy going for at least another several weeks and he is agreeabl e. I believe that his shortnes s of breath with activity will continue to improve as he becomes better conditio randa and he agrees that this has already improved . Problem Code: R53.81; Problem Code Type: ICD-10; Not Available [facility] 3 05:06:15 Tinnitus 54595109 Active 202101/12/20 22 - Comments only - Shaila Stallworth - He has been taking an over the counter suppleme nt which he believes has been helping to reduce the ringing in his ears, but the suppleme nt is expensiv e and he is looking for a prescrip tion to ameliora te the cost. I advised that if he calls with the name of the suppleme nt next time he sees it at the store then we can see if it's somethin g we are able to prescrib e. Problem Code: H93.19; Problem Code Type: ICD-10; Not Available [facility] 3 05:06:15 Carpal tunnel syndrome of right wrist [id number] 9108 Active 202212/22/19 23 - Comments only - Lynette Bill TRESA - confirme d on emg's Problem Code: G56.01; Problem Code Type: ICD-10; Not Available [facility] 3 05:06:15 Cellulit is 091686428 Completed 201901/11/2022 Problem Code: L03.90; Problem Code Type: ICD-10; Not Available [facility] 3 05:06:37 Renal insuffic iency 494990920 Active [address], [place], [address] , [facility] 11:54:52 Problem Notes None recorded. Procedures Surgical History None recorded. Imaging Results Imaging Date Name Status LastModified by Organiz ation Details LastModified Time 2024 x-ray imaging report completed [id number] [address] [place], [address] 05/12/2024 08:01:30 2024 vrad report completed [id number] [address] [place], [address] 05/12/2024 08:01:30 2024 vrad report completed [id number] [address] [place], [address] 05/12/2024 08:01:30 05/10/2024 CT imaging report completed [id number] [address] [place], [address] 05/12/2024 08:01:31 05/11/2024 CT imaging report completed [id number] [address] [place], [address] 05/12/2024 08:01:31 06/03/2024 vrad report completed [email or web address] [address] [place], [address] 06/04/2024 07:27:19 06/03/2024 vrad report completed [id number] [address] [place], [address] 06/04/2024 07:27:19 06/04/2024 x-ray imaging report completed [id number] [address] [place], [address] 06/04/2024 09:25:40 06/04/2024 CT imaging report completed [id number] [address] [place], [address] 06/04/2024 09:25:40 06/06/2024 CT imaging report active INTERFACE [address] [place], [address] 06/06/2024 18:39:04 06/06/2024 x-ray imaging report active INTERFACE [address] [place], [address] 06/06/2024 18:43:10 Procedure Notes None recorded. Medical Equipment None [...] pneumococcal, unspecified formulation 07/17/2020 completed Not Available [facility] 08/24/2023 05:17:59 Tdap 11/27/2022 completed Not Available [facility] 05:17:59 Influenza, high-dose, quadrivalent, PF 11/27/2022 completed Not Available [facility] 08/24/2023 05:18:00 COVID-19, mRNA, LNP-S, PF, 100 mcg/0.5mL dose or 50 mcg/0.25mL dose 12/10/2020 completed Not Available [facility] 08/24/2023 05:18:00 COVID-19, mRNA, LNP-S, PF, 100 mcg/0.5mL dose or 50 mcg/0.25mL dose 01/07/2021 completed Not Available [facility] 08/24/2023 05:18:00 COVID-19, mRNA, LNP-S, PF, 100 mcg/0.5mL dose or 50 mcg/0.25mL dose 03/15/2022 completed Not Available [facility] 08/24/2023 05:18:00 SARS-COV-2 (COVID-19) vaccine, UNSPECIFIED 09/17/2021 completed Not Available [facility] 08/24/2023 05:18:00 COVID-19, mRNA, LNP-S, bivalent, PF, 30 mcg/0.3 mL dose 11/27/2022 completed Not Available [facility] 08/24/20 05:18:00 pneumococcal polysaccharide PPV23 03/15/2022 completed Not Available [facility] 2022 05:18:00 influenza, unspecified formulation 07/17/2020 completed Not Available [facility] 08/24/2023 05:18:00 Past Encounters Encounter ID Performer Location Encounter Start Date Encounter Closed Date Diagnosis/Indication Diagnosis SNOMED-CT Code [id number] LYNETTE BILL PA-C [facility] [address] [place] [address] 05/27/2024 16:09:14 05/31/2024 04:05:12 [id number] LYNETET BILL PA-C [facility] [place] [address] [place] [address] 05/30/2024 10:56:10 05/30/2024 12:20:08 Renal insufficiency [id number] Type 2 bridgette betes mellitus without complication [id number] Health Concerns Section Related Observation LastModified by [...] own at this point. [address], [place], [address], [facility]. 05/30/2024 11:55:32
--- OUTSIDE RECORDS SUMMARY | 2024-06-06 23:55 | XMS_ITS | Encounter Summary ---
Author Organization [facility] Address [address] [place] [address] Care Team Providers Care Logistic Specialist Name Role Phone Cruzito Hager MD Primary Care Provider U cintia Encounter Details Date Type Department Care Team (Latest Contact Info) Description 06/06/2024 Travel Social History Tobacco Use Types Packs/Day Years Used Date Smoking Tobacco: Never Assessed Sex and Gender Information Value Date Recorded Sex Assigned at Not on file Gender Identity Not on file Sexual Orientation Not on file documented as of this encounter Plan of Treatment Not on file documented as of this encounter Visit Diagnoses Not on filedocumented in this encounter Care Teams Logistic Specialist Relationship Specialty Start Date End Date Cruzito Hager MD PCP - General 06/14/11 documented as of this encounter
--- OUTSIDE RECORDS SUMMARY | 2024-06-06 23:55 | XMS_ITS | Encounter Summary ---
Author Organization [facility] Address [address] [place] [address] Care Team Providers Care Neurophysiologist Name Role Phone Cruzito Hager MD Primary Care Provider U navailable Reason for Referral * (Routine/Next Available) - Receiving Office to Obtain Authorization Specialty Diagnoses / Procedures Referred By Contac t Referred To Contact Procedures CT OUTSIDE IMAGES ABDOMEN PELVIS Unknown, MD Calixto Referral ID Status Reason Start Date Expiration Date Visits Requested Visits Authorized [id number] Receiving Office to Obtain Authorization 06/06/2024 1 1 Reason for Visit * (Routine/Next Available) - Receiving Office to Obtain Authorization Specialty Diagnoses / Procedures Referred By Contac t Referred To Contact Procedures CT OUTSIDE IMAGES ABDOMEN PELVIS Unknown, MD Calixto Referral ID Status Reason Start Date Expiration Date Visits Requested Visits Authorized [id number] Receiving Office to Obtain Authorization 06/06/2024 1 1 Encounter Details Date Type Department Care Team ([facility] Contact Info) Description 06/06/2024 20:16 EDT Hospital Encounter [facility] Secondary Reads [place] Arrived Social History Tobacco [...] Procedure Name Priority Date/Time Associated Diagnosis Comments CT OUTSIDE IMAGES ABDOMEN PELVIS Routine 06/06/2024 20:16 EDT documented in this encounter Results * CT OUTSIDE IMAGES ABDOMEN PELVIS (06/06/2024 20:16 EDT) Narrative 06/06/2024 20:16 EDT This is a non-reportable exam. Provider Unknown MD BRUNER OTHER IMAGING OR DERABLES documented in this encounter Visit Diagnoses Not on filedocumented in this encounter Care Teams Neurophysiologist Relationship Specialty Start Date End Date Cruzito Hager MD PCP - General 06/14/11 documented as of this encounter
--- OUTSIDE RECORDS SUMMARY | 2024-06-06 23:55 | XMS_ITS | Clinical Summary ---
Author Organization [facility] Address [address] [place] [address] Care Team Providers Care Guide Foreign Tour Name Role Phone Cruzito Hager MD Primary Care Provider U navailable Encounters Date Type Department Care Team Description 06/06/2024 20:16 EDT Hospital Encounter [facility] Secondary Reads [place] Arrived 06/06/2024 20:16 EDT Hospital Encounter [facility] Secondary Reads [place] Arrived 06/06/2024 Travel 06/06/2024 Telephone [facility] [address] [place] [address] [phone] Kaya Swanson MD Discuss Possible Transfer (/) 06/04/2024 Lab Requisition [facility] [address] [address] Outr Resulting Lab, Provider 06/04/2024 Lab Requisition [facility] [address] [place] [address] Outr Resulting Lab, Provider from Last 3 [...] Mass Index - - Plan of Treatment Health Maintenance Due Date [...] MD BRUNER OTHER IMAGING OR DERABLES * HEPATITIS C AB W REFLEX TO HCV RNA BY PCR (06/03/2024 15:55 EDT) Hep C Antibody Negative Negative 06/04/2024 19:27 EDT [facility] Blood VENOUS BLOOD / Unknown 06/03/2024 15:55 EDT 06/04/2024 17:25 EDT Provider Outr Resulting Lab CHEMISTRY & BLOOD GAS ORDERABLES Performing Organization Address City/[facility]/ZIP Co de Phone Number [facility] [address] [place], [place] [phone] * HEPATITIS B SURFACE ANTIGEN (06/03/2024 15:55 EDT) Hep B Surface Ag Negative Negative 06/04/2024 18:55 EDT [facility] Blood VENOUS BLOOD / Unknown 06/03/2024 15:55 EDT 06/04/2024 17:25 EDT Provider Outr Resulting Lab CHEMISTRY & BLOOD GAS ORDERABLES Performing Organization Address [facility] de Phone Number [facility] [address] [place] [address] * HIV 1/2 ANTIGEN AND ANTIBODY, 4TH GENERATION (06/03/2024 15:55 EDT) HIV 1 and 2 Antibody/p24 Antigen, 4th Generation Negative Negative 06/04/2024 19:41 EDT [facility] Comment:If acute HIV-1 infec tion is suspected in a high risk patient, submit plasma specimen for HIV-1 RNA quantitation test. Blood VENOUS BLOOD / Unknown 06/03/2024 15:55 EDT 06/04/2024 17:25 EDT Narrative [facility] - 06/04/2024 19:41 EDT Fourth Generation assay performed on the Siemens Centaur XPT. Provider Outr Resulting Lab IMMUNOLOGY A ND SEROLOGY ORDERABLES Performing Organization Address [facility]/ZIP Co de Phone Number [facility] [address] [place], [place] [phone] from Last 3 Months Care Teams Guide Foreign Tour Relationship Specialty Start Date End Date Cruzito Hager MD PCP - General 06/14/11
--- OUTSIDE RECORDS SUMMARY | 2024-06-06 23:56 | XMS_ITS | Encounter Summary ---
Author Organization [facility] Address [facility] [place] [address] Care Team Providers Care Rim Fire Priming Tool Setter Name Role Phone None Primary Care Provider Unavailabl e Encounter Details Date Type Department Care Team (Late st Contact Info) Description 05/26/2024 [place] [address] Maryann Dowell MD [facility] [place] [address] Osteomyelitis of second toe of right foot; Coagulase-negative staphylococcal infection Social History Tobacco Use Types Packs/Day Years Used Date Smoking Tobacco: Former Cigarettes 14 0.6 S tarted: 2023 Smokeless Tobacco: Never Alcohol Use Standard Drinks/Week Comments Yes 0 (1 standard drink = 0.6 oz pur e alcohol) 3-4 PER [facility] Inpatient Questions Answer [...] 10:30 AM EDT [place] [address] Elkin Garcia MD [facility] DR [place] [address] documented as of this encounter Visit Diagnoses Diagnosis Osteomyelitis of second toe of right foot Coagulase-negative staphylococcal infection Other staphylococcus infection in conditions classified elsewhere and of unspecified site documented in this encounter Care Teams Rim Fire Priming Tool Setter Relationship 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
--- OUTSIDE RECORDS SUMMARY | 2024-06-06 23:56 | XMS_ITS | Clinical Summary ---
Author Organization [facility] Address [facility] [place] [address] Care Team Providers Care Financial Analyst Intern Name Role Phone None Primary Care Provider [...] Team Description 05/30/2024 Telephone Infectious Disease at [place] [phone] Lu Mcfarland, IMMIGRATION LAWYER 05/26/2024 Orders Only Infectious Disease at [place] [phone] Maryann Dowell MD Osteomyelitis of second toe of right foot; Coagulase-negative staphylococcal infection 05/26/2024 [place]phone [place] [phone] Marina Mason RN 05/22/2024 4:33 PM EDT Anesthesia Event Gastroenterology at [place] [phone] Soledad Doyle MD Pouliot, Ryan C, MD 05/22/2024 1:00 PM EDT - 05/22/2024 1:30 PM EDT [place] [address] Jonn Mnea MD EGD, UPPER GI ENDOSCOPY (WRVU 2.09) 05/21/2024 Travel 05/14/2024 10:37 AM EDT Anesthesia Event Main Operating Room [place] [phone] Gertrudis Kimball MD Godbout, Jennifer M, MD 05/14/2024 10:00 AM EDT - 05/14/2024 11:24 AM EDT Surgery [place] [address] Elkin Garcia MD AMPUTATION, TRANSMETATARSAL TOE, ONE TOE (WRVU 6.64) 05/10/2024 2:12 AM EDT - 05/23/2024 4:14 PM EDT Hospital Encounter Surgical Unit Level 4 Wing D at [place] [phone] Arely Dickson MD Saunders, MD Joe Gaona Gurbakhshish, MD Swenson, Beverly Goodson MD Septic shock; Altered tissue perfusion; Osteomyelitis of second toe of right foot; Stage 4 chronic kidney disease Discharge Disposition: Rehab Center in a Facility 2024 9:25 PM EDT Ancillary Procedure [place] [phone] Arely Dickson MD 2024 9:20 PM EDT Ancillary Procedure Radiology Library at [place] [phone] Arely Dickson MD from Last 3 Months Social History Tobacco Use Types Packs/Day Years Used Date Smoking Tobacco: Former Cigarettes 14 0.6 S tarted: 2023 Smokeless Tobacco: Never Tobacco Cessation:Counseling Given: Not Answered Alcohol Use Standard Drinks/Week Comments Yes 0 (1 standard drink = 0.6 oz pur e alcohol) 3-4 PER [facility] Inpatient Questions Answer Date Recorded Does [...] 10:30 AM EDT Office [place] [address] [facility] [address] [place] [address] Health Maintenance Due Date Last Done Comments [...] history exists Medical Devices Implanted Type Area Brushing Operator Device Identifier Shelf Expiration Date Model / Serial / Lot Clip [id number] Endoscopic Ligation Resolution 360 Each ([id number]) - [id number] Implanted:Qty: 1 on 05/22/2024 by Jonn Mena MD at [facility] IMPLANTS Duodenum [employer] [...] EDT Upper Gi Endoscopy, W/Dir Submuc Inj (43976) 05/22/2024 4:39 PM EDT ? melena Upper Gi Endoscopy, Ctrl Bleed (70522) 05/22/2024 4:39 PM EDT ? melena Upper GI Endoscopy, Diagnostic ([id number]) 05/22/2024 4:39 PM EDT ? melena UPPER [...] 05/14/2024 11:32 AM EDT Amputation Metatarsal+Toe, Single ([id number]) 05/14/2024 10:37 AM EDT right second toe [...] of40 resultswithin the time period is included. [facility] Glucometer, POC 137 65 - 199 mg/dL 05/23/2024 12:32 PM EDT [facility] Comment:Supplemental ranges: <140 mg/dL before meals <180 mg/dL all other times of the day. Blood CAPILLARY BLOOD / Unknown 05/23/2024 12:32 PM EDT 05/23/2024 12:32 PM EDT Beverly Spears MD POINT OF CARE TEST ORDERABLES [facility] [place] [address] * (ABNORMAL) CBC (with Diff) (05/23/2024 9:46 [...] - 0.10 x10(3)/mc L 05/23/2024 10:52 AM [facility] Immature Gran % 0.6 % 10:52 AM [facility] Immature Gran Absolute 0.07(H) 0.00 - 0.04 x10(3)/mc L 05/23/2024 10:52 AM EDT [facility] Blood VENOUS BLOOD SPECIMEN / Unknown IP Care Team Draw / Unknown 05/23/2024 9:46 AM EDT 05/23/2024 10:01 AM EDT Beverly Spears MD HEMATOLOGY ORDERABL ES [facility] [place] [address] * (ABNORMAL) Basic Metabolic Panel (05/23/2024 9:46 [...] 22 - 31 mMol/L [facility] Anion Gap 9 5 - 15 mMol/L 05/23/2024 11:27 AM [facility] Calcium 9.3 8.5 - 10.5 mg/dL 05/23/2024 11:27 AM [facility] Est Glomerular [...] MD CHEMISTRY ORDERABLE S Performing Organization Address City/[facility]/ZIP Co de Phone Number [facility] [place] [address] * Prepare RBC (05/23/2024 3:49 AM EDT) Status Information Transfused [facility] Product Identification RBC [facility] Unit [facility] [id number] [facility] Product Code [id number] [facility] Unit Blood Type OPOS [facility] Specimen Expiration Date [id number] [facility] Volulme 350 [facility] Issue Date / Time [id number] [facility] Blood 05/22/2024 12: 42 PM EDT Beverly Spears MD BLOOD BANK PRODUCT ORDERABLES Performing Organization Address City/[facility]/ZIP Co de Phone Number [facility] [place] [address] * (ABNORMAL) Scan, Peripheral Blood (05/23/2024 1:19 AM EDT) RBC Morphology Abnormal 05/23/2024 3:44 AM EDT [facility] Platelet Estimate Increased(A) Normal 05/23/2024 3:44 AM EDT [facility] Ovalocytes 1-5 /HPF 05/23/2024 3:44 AM EDT [facility] Crestone cells 1-5 /HPF 05/23/2024 3:44 AM EDT [facility] Blood VENOUS BLOOD SPECIMEN / Unknown IP Care Team Draw / Unknown 05/23/2024 1:19 AM EDT 05/23/2024 2:05 AM EDT Julius Cook MD HEMATOLOGY ORDERAB LES Performing Organization Address City/[facility]/ZIP Co de Phone Number [facility] [place] [address] * (ABNORMAL) Phosphorus (05/23/2024 1:19 AM EDT) Only the most recent of15 resultswithin the time period is included. Phosphorus 5.8(H) 2.5 - 4.5 mg/dL 05/23/2024 2:40 AM EDT [facility] Blood VENOUS BLOOD SPECIMEN / Unknown IP Care Team Draw / Unknown 05/23/2024 1:19 AM EDT 05/23/2024 2:05 AM EDT Julius Cook MD CHEMISTRY ORDERABL ES Performing Organization Address City/[facility]/ZIP Co de Phone Number [facility] [place] [address] * Magnesium (05/23/2024 1:19 AM EDT) Only the most recent of14 resultswithin the time period is included. Magnesium 0.86 0.69 - 1.07 mMol/L 05/23/2024 2:40 AM EDT [facility] Blood VENOUS BLOOD SPECIMEN / Unknown IP Care Team Draw / Unknown 05/23/2024 1:19 AM EDT 05/23/2024 2:05 AM EDT Julius Cook MD CHEMISTRY ORDERABL ES [facility] [place] [address] * Transfuse RBC (05/22/2024 2:45 PM EDT) Beverly Spears MD NURSING TREATMENT O RDERABLES - BLOOD ADMIN * UPPER GI ENDOSCOPY (05/22/2024 12:48 PM EDT) UPPER GI ENDOSCOPY [facility] Endoscopy ___ Procedure Date: 05/22/2024 12:48 PM ? Patient Name: Ave Kolb ? [facility]: [id number] ? Date of : 1955 ? Age: 69 ? Order #: [id number] ? Instrument Name: [id number]- [id number]- [id number] ? ___ Procedure: ? Upper GI endoscopy [...] personally performed the entire procedure. ? Jonn Mnea, 05/22/2024 4:58:10 PM Number of Addenda: 0 Note Initiated On: 05/22/2024 12:48 PM [employer]ATION 05/22/2024 12:4 8 PM EDT Unknown GENERAL SURGICAL ORD ERABLES [employer]ATION * ABORH RECHECK (PATIENT HISTORY FOUND) (05/22/2024 11:18 AM EDT) ABORH Recheck Progress Complete 05/22/2024 1:01 PM EDT [facility] Blood VENOUS BLOOD SPECIMEN / Unknown IP Care Team Draw / Unknown 05/22/2024 11:18 AM EDT 05/22/2024 11:27 AM EDT Beverly Spears MD BLOOD BANK LAB FADY GAO [facility] [place] [address] * (ABNORMAL) Hemoglobin and Hematocrit, blood (05/22/2024 [...] MD HEMATOLOGY ORDERABL ES Performing Organization Address City/[facility]/ZIP Co de Phone Number [facility] [place] [address] * Type and screen ([facility]/P/TARA) (05/22/2024 11:18 AM EDT) Only the most recent of2 resultswithin the time period is included. ABORH Type O POSITIVE 05/22/2024 12:31 PM EDT [facility] PATIENT HISTORY Found 05/22/2024 12:31 PM EDT [facility] Expires at [id number] on: 05-22-2024 05/22/2024 12:31 PM EDT [facility] ANTIBODY SCREEN AUTOMATED Negative 05/22/2024 12:31 PM EDT [facility] T&S only valid at [facility] 05/22/2024 12:31 PM EDT [facility] Blood VENOUS BLOOD SPECIMEN / Unknown IP Care Team Draw / Unknown 05/22/2024 11:18 AM EDT 05/22/2024 11:27 AM EDT Narrative [facility] - 05/22/2024 12:31 PM EDT This Type and Screen result is only valid at the [facility] Beverly Spears MD BLOOD BANK LAB ORDE RABLES Performing Organization Address City/[facility]/ZIP Co de Phone Number [facility] [place] [address] * (ABNORMAL) Hepatic Function Panel (05/22/2024 5:18 [...] CHEMISTRY ORDERABLE S [facility] [place] [address] * (ABNORMAL) Hemogram (05/21/2024 3:00 PM EDT) [...] ORDERABL ES [facility] [place] [address] * IR Tunneled Central Venous Access Non-Dialysis [...] and osteomyelitis s/p 2ng toe amputation requiring long term care social worker IV antibiotic administration who presents to Interventional [...] guidance and a 4Fr sheath placed. ??[address] injection compatible single lumen catheter [...] CHEMISTRY ORDERABLE S [facility] [place] [address] * US Retroperitoneal Complete (05/20/2024 10:36 AM EDT) Pathologist [facility] [place] WORKSTATION ID [id number] [facility][NOTE 3] Anatomical Region Laterality Modality Abdomen Ultrasound 05/20/2024 [...] signed by: Teofilo Ruiz MD, [facility] ([phone]), at 05/20/2024 11:30 AM Thank you for letting us participate in the care of this patient. If you are a health care provider and have any questions regarding this report, please contact the number above. For patients who have questions, please contact the health emergency care attendant that requested your imaging first. ?Teofilo Ruiz, Staff Physician Electronically Signed Final Report ?? 05/20/2024 11:36 am Narrative 05/20/2024 11:37 AM EDT Renal ? (Signed Final 05/20/2024 11:36 am) PATIENT INFO: ID #: ? [id number] ?: ??[birth year] (69 yrs)(M) Name: ? AVE KOLB ? Visit Date: 05/20/2024 10:34 am PERFORMED BY: Attending: ?Joseph SOOTMAYOR, Teofilo Flores Resident: ? Kuldeep SOTOMAYOR, Trinidad Wright Performed By: ? Lulu Shin RDMS Referred By: ?BEVERLY SPEARS Location: ? [place] SERVICE(S) PROVIDED: URETRO - Retroperitoneal Complete - [id number] ? [id number] INDICATIONS: CKD, increase BUN TECHNIQUE/SCAN QUALITY: Scan [...] 05/20/2024 11:36 am) PATIENT INFO: ID #: [id number] : [birth year] (69 yrs)(M) Name: AVE KOLB Visit Date: 05/20/2024 10:34 am PERFORMED BY: Attending: Teofilo Ruiz MD Resident: Trinidad Light MD Performed By: Lulu Shin RDMS Referred By: BEVERLY SPEARS Location: [place] SERVICE(S) PROVIDED: URETRO - Retroperitoneal Complete - [id number] INDICATIONS: CKD, increase BUN TECHNIQUE/SCAN QUALITY: Scan [...] signed by: Teofilo Ruiz MD, [facility] ([phone]), at 05/20/2024 11:30 AM Thank you for letting us participate in the care of this patient. If you are a health care provider and have any questions regarding this report, please contact the number above. For patients who have questions, please contact the health emergency care attendant that requested your imaging first. Teofilo Ruiz, [...] CHEMISTRY ORDERABLE S [facility] [place] [address] * (ABNORMAL) Iron and TIBC (05/19/2024 5:09 [...] CHEMISTRY ORDERABLE S [facility] [place] [address] * Ferritin (05/19/2024 5:08 PM EDT) Ferritin 191 31 - 409 ng/ml 05/19/2024 6:24 PM EDT [facility] Blood VENOUS BLOOD SPECIMEN / Unknown IP Care Team Draw / Unknown 05/19/2024 5:08 PM EDT 05/19/2024 5:43 PM EDT Beverly Spears MD CHEMISTRY ORDERABLE S Performing Organization Address [facility] Co de Phone Number [facility] [place] [address] * C diff Screen (05/18/2024 11:31 AM [...] GENE RAL ORDERABLES [facility] [place] [address] * C Diff PCR (05/18/2024 11:31 AM EDT) Stool STOOL SPECIMEN / Unknown Non Blood Collection / Unknown 05/18/2024 11:31 AM EDT 05/18/2024 12:09 PM EDT Beverly Spears MD MICROBIOLOGY - GENE RAL ORDERABLES [facility] [place] [address] * Electrolytes, urine, random (05/18/2024 8:57 AM [...] Spears MD URINE ORDERABLES Performing Organization Address City/[facility]/ZIP Co de Phone Number [facility] [place] [address] * Creatinine, urine, random (05/18/2024 8:57 AM EDT) Only the most recent of2 resultswithin the time period is included. Creatinine, Urine 44 mg/dL 05/18/2024 9:36 AM EDT [facility] Urine URINE SPECIMEN / Unknown Non Blood Collection / Unknown 05/18/2024 8:57 AM EDT 05/18/2024 9:07 AM EDT Beverly Spears MD URINE ORDERABLES [facility] [place] [address] * Vancomycin Level, Random (05/17/2024 5:49 AM EDT) Only the most recent of8 resultswithin the time period is included. Vancomycin, Random 22.4 mg/L 2023 6:58 AM EDT [facility] Comment:This level is for de termination of the patient's vancomycin pwvh-mrzta-hgz-curve (AUC) value. Contact the inpatient pharmacy for interpretation. Blood IP Care Team w / Nick 05/17/2024 5:49 AM EDT 05/17/2024 6:13 AM EDT Treva Diaz MD CHEMISTRY ORDERABL ES Performing Organization Address City/[facility]/ZIP Co de Phone Number [facility] [place] [address] * POCT Glucose (05/16/2024 11:46 PM EDT) Only the most recent of38 resultswithin the time period is included. Pathologist [facility] [place] Glucose, POC 148 65 - 199 mg/dL [facility] Comment: Supplemental ranges: <140 mg/dL before meals <180 mg/dL all other times of the day Blood 05/16/2024 11:4 6 PM EDT 05/16/2024 11:46 PM EDT Treva Diaz MD POINT OF CARE TEST ORDERABLES Performing Organization Address City/[facility]/ZIP Co de Phone Number [facility] [place] [address] * (ABNORMAL) Differential, Automated (05/16/2024 5:14 AM EDT) Only the most recent of7 resultswithin the time period is included. Neutrophil % 79.4 % [facility] Neutrophil Absolute 9.22(H) 1.70 - 6.10 x10(3)/mc L [facility] Lymph % 6.6 % [facility] Lymphocytes Abs 0.8(L) 0.9 - 3.2 x10(3)/mc L [facility] Monocyte % 9.5 % [facility] Monocyte Abs 1.1(H) 0.3 - 0.9 x10(3)/ L [facility] Eos % 0.0 % [facility] Eosinophils Abs 0.0 0.0 - 0.4 x10(3)/[facility] Basophil % 0.2 % [facility] Baso Absolute 0.0 0.0 - 0.1 x10(3)/[facility] Immature Gran % 4.30 % [facility] Comment: Immature granulocytes(IG's)percentage and absolute count will include metamyelocytes, myelocytes, and promyelocytes. Blood smears from CBCs yielding IG's will be scanned manually for concordance. If this scan disagrees with the automated IG or if promyelocytes are noted, a manual differential will be performed. Immature Gran Absolute 0.50(H) 0.00 - 0.04 x10(3)/[facility] Blood 05/16/2024 5:14 AM EDT 05/16/2024 5:38 AM EDT Narrative Resulting Agency Comment Spec In Lab Carlotta Davis MD HEMATOLOGY OR DERABLES Performing Organization Address [facility]/State/[facility] Co de Phone Number [facility] [place] [phone] * MRSA PCR Screen ([facility]/CGP/APD/NLH) (05/15/2024 4:15 PM EDT) MRSA PCR Negative Negative [facility] MRSA (Interp) Methicillin-resist ant Staphylococcus aureus (MRSA) is NOT DETECTED The MRSA target DNA sequences (mec and SCC) were not detected within the acceptable ranges using the Xpert MRSA NxG on the GeneXpert Dx System (3DSoC). This suggests the absence of MRSA in the patient specimen submitted for testing. This test is cleared by the U.S. Food and Drug Administration for clinical use and its performance characteristics have been verified by the [facility] at [facility]. This result does not rule out the [...] MD MOLECULAR ORDERABL ES Performing Organization Address [facility] [place] [address] * Scan Doc: Telemetry Strips (05/14/2024 12:47 [...] - GENE RAL ORDERABLES Performing Organization Address [facility]/[place] [address] * (ABNORMAL) Tissue culture (05/14/2024 11:33 AM [...] Sensitive Comment:Gentamicin i s not appropriate for [place]-therapy. Coagulase Negative Staphylococcus species Levofloxacin MICROSCAN METHOD [...] METHOD Sensitive Gennaro Meyers MD MICROBIOLOGY - [facility] ORDERABLES [facility] [place] [address] * Surgical Pathology Report (05/14/2024 11:32 AM EDT) Surgical Pathology Report [id number] ? Location: L4WD; 0421; A The signing [...] MD, Shima Verified: ??05/20/2024 11:25 Performed at: ??-[facility] Dept. of Pathology, [place] [address] [employer] Floorperson: Polly Barnhart MD, FCAP, ??CLIA Certificate: [id number] SPECIMEN(S) SUBMITTED A - RIGHT 2ND TOE, [...] Sections/Processi ng: Blocks submitted for decalcification: A1-A2. Business Objects Architect sections in 2 cassettes as follows: ?A1-A2: ??Longitudinal section of digit ??cmk [facility] 05/14/2024 11:3 2 AM EDT Gennaro Meyers MD PATHOLOGY/CYTOLOGY ORDERABLES [facility] [place] [address] * Specimen to Pathology (05/14/2024 11:32 AM EDT) AP Specimen 05/14/2024 11:3 2 AM EDT 05/14/2024 11:32 AM EDT Narrative [facility] - 05/14/2024 11:32 AM EDT Specimen requisition ordered. ??Separate Pathology report to follow Treva Diaz MD PATHOLOGY/CYTOLOGY ORDERABLES Performing Organization Address City/[facility]/ZIP Co de Phone Number [facility] [place] [address] * Scan, Peripheral Blood (05/13/2024 5:29 AM EDT) Only the most recent of2 resultswithin the time period is included. Plat estimate Normal [facility] RBC Morphology Abnormal [facility] Sofía Cells 1-5 /HPF [facility] Plat, Giant Less than 1 /HPF [facility] Blood 05/13/2024 5:29 AM EDT 05/13/2024 5:49 AM EDT Narrative Resulting Agency Comment Spec In Lab Carlotta Davis MD HEMATOLOGY OR DERABLES Performing Organization Address City/[facility]/ZIP Co de Phone Number [facility] [place] [address] * Duplex for DVT, Leg, Unilat (05/12/2024 10:19 AM EDT) VB Text Report Department: Vascular Surgery Lab Patient: [id number] (AVE KOLB) CPT: [id number] Referring Physician: JULIUS COOK ?? Phone: Indications: [...] MD VASCULAR ORDERABLE S Performing Organization Address [facility] de Phone Number VAS[facility] * (ABNORMAL) Sedimentation [...] MD HEMATOLOGY ORDERABLE S Performing Organization Address [facility] de Phone Number [facility] [place] [address] * ANGY, legs, multiple levels (05/12/2024 3:22 AM EDT) VB Text Report Department: Vascular Surgery Lab Patient: [id number] (AVE KOLB) CPT: [id number] Referring Physician: ARELY DICKSON ?? Phone: Indications: [...] * Lactate, whole blood, send to lab ([facility]) (05/10/2024 6:55 AM EDT) Only the most recent of2 resultswithin the time period is included. [facility] Lactate WB 1.7 0.5 - 2.2 mmol/L [facility] Blood 05/10/2024 6:55 AM EDT 05/10/2024 7:00 AM EDT Narrative Resulting Agency Comment Spec In Lab Arely Dickson MD CHEMISTRY ORDERABLES Performing Organization Address [facility] Co de Phone Number [facility] [place] [address] * CK (05/10/2024 6:55 AM EDT) [facility] Creatine Kinase 58 0 - 200 unit/L [facility] Blood Venous Draw / Unknown 05/10/2024 6:55 AM EDT 05/10/2024 7:41 AM EDT Narrative Resulting Agency Comment Spec In Lab Emmanuel Corey DO CHEMISTRY ORDERABLES Performing Organization Address [facility] Co de Phone Number [facility] [place] [address] * MRI Foot wwo Contrast Right (05/10/2024 5:51 AM EDT) WORKSTATION ID [id number] [facility][NOTE 3] Anatomical Region Laterality Modality Foot Right Magnetic [...] who have questions please contact the health emergency care attendant that requested your imaging first. ? Electronically signed by: Trinidad Mota MD, [facility] ([phone]), at 05/10/2024 12:56 PM Narrative 05/10/2024 12:56 [...] patients who have questions please contactthe health emergency care attendant that requested your imaging first. Electronically signed by: Trinidad Mota MD, [facility]([phone]), at 05/10/2024 12:56 PM Arely Dickson MD IMG MRI ORDERABLES * Urea nitrogen, urine, random (05/10/2024 4:15 AM EDT) Urea Nitrogen, Urine 580 mg/dL [facility] Urine 05/10/2024 4:15 AM EDT 05/10/2024 4:23 AM EDT Narrative Resulting Agency Comment Spec In Lab Arely Dickson MD URINE ORDERABLES Performing Organization Address [facility]/ZIP Co de Phone Number [facility] [place] [address] * Sodium, urine, random (05/10/2024 4:15 AM EDT) Sodium, Urine <20 mmol/L [facility] Urine 05/10/2024 4:15 AM EDT 05/10/2024 4:23 AM EDT Narrative Resulting Agency Comment Spec In Lab Arely Dickson MD URINE ORDERABLES Performing Organization Address [facility]/ZIP Co de Phone Number [facility] [place] [address] * (ABNORMAL) Skin/Superficial Wound Culture Toe (05/10/2024 [...] GENER AL ORDERABLES [facility] [place] [address] * (ABNORMAL) Urinalysis without microscopic (05/10/2024 2:42 [...] CENTER LABORATORY Leukocytes, Urine Dipstick Small(A) Negative [facility] Appearance, Urine Dipstick Cloudy(A) Clear [facility] Specific [place] Urine Automated 1.017 1.005 - 1.030 [facility] Color, Urine Dipstick [place](A) Yellow [facility] Urine 05/10/2024 2:42 AM EDT 05/10/2024 2:57 AM EDT Narrative Resulting Agency Comment Spec In Lab Arely Dickson MD URINE ORDERABLES Performing Organization Address [facility] de Phone Number [facility] [place] [place] [address] * EKG 12 Lead (05/10/2024 2:38 AM EDT) Ventricular rate 107 BPM MUSE SYSTEM QRS Duration 114 ms MUSE SYSTEM Q-T Interval 324 ms MUSE SYSTEM QTC Calculated (Bezet) 432 ms MUSE SYSTEM Calculated R [place] -46 degrees MUSE SYSTEM Calculated T [place] 47 degrees MUSE SYSTEM INTERPRETATION Atrial fibrillation Left axis deviation Abnormal ECG No previous ECGs available Confirmed by MD ARVIND, CHRISTIAN ([id number]) on 05/11/2024 3:17:18 PM MUSE SYSTEM 05/10/2024 2:38 AM EDT 05/11/2024 3:17 PM EDT Unknown ECG ORDERABLES Performing Organization Address [facility] de Phone Number MUSE SYSTEM * XR Chest One View (05/10/2024 2:37 AM EDT) WORKSTATION ID [id number] [facility][NOTE 3] Anatomical Region Laterality Modality Chest N/A Digital Radiogra phy Impressions 05/10/2024 3:27 AM EDT Bibasilar atelectasis. Thank you for letting us participate in the care of this patient. ??If you are a health care provider and have any questions regarding this report, please contact the number below. ??For patients who have questions please contact the health emergency care attendant that requested your imaging first. ? Electronically signed by: [facility] ([phone]), at 05/10/2024 3:27 AM Narrative 05/10/2024 3:27 [...] patients who have questions please contactthe health emergency care attendant that requested your imaging first. Electronically signed by: Yenni Ca [facility]([phone]), at 05/10/2024 3:27 AM Arely Dickson MD IMG DX ORDERABLES * Blood culture (05/10/2024 2:32 AM EDT) Blood Culture No growth at 5 days. [facility] Blood STRUCTURE OF RIGHT HAND / Unknown 05/10/2024 2:32 AM EDT 05/10/2024 4:17 AM EDT Narrative Resulting Agency Comment Spec In Lab Arely Dickson MD MICROBIOLOGY - BLOOD ORDERABLES Performing Organization Address City/[facility]/ZIP Co de Phone Number [facility] [place] [address] * Type and Screen Validity (05/10/2024 2:20 AM EDT) T&S only valid at [facility] Comment:This Type and Screen result is only valid at the [facility] Blood 05/10/2024 2:20 AM EDT 05/10/2024 2:49 AM EDT Narrative Resulting Agency Comment Spec In Lab Anita Camacho MD BLOOD BANK LAB ORDER ANGELIQUE Performing Organization Address City/[facility]/ZIP Co de Phone Number [facility] [place] [address] * ABORH Recheck Status (05/10/2024 2:20 AM EDT) ABORH Recheck Order Order Placed [facility] ABORH Type Recheck Completed [facility] Blood 05/10/2024 2:20 AM EDT 05/10/2024 2:49 AM EDT Narrative Resulting Agency Comment Spec In Lab Anita Camacho MD BLOOD BANK LAB ORDER ANGELIQUE Performing Organization Address City/[facility]/ZIP Co de Phone Number [facility] [place] [address] * (ABNORMAL) Prothrombin Time (05/10/2024 2:20 AM [...] MD HEMATOLOGY ORDERABLE S Performing Organization Address [facility]/ZIP Co de Phone Number [facility] [place] [address] * (ABNORMAL) Hemoglobin A1c (05/10/2024 2:20 AM [...] Mellitus, Diabetes Care 2013; 36: Suppl. 1, S67-33 Estimated Average Glucose See note mg/dL [facility] Comment: Estimated Average Glucose not appropriate for patients over 70 years of age. Blood 05/10/2024 2:20 AM EDT 05/10/2024 2:36 AM EDT Narrative Resulting Agency Comment Spec In Lab Arely Dickson MD CHEMISTRY ORDERABLES Performing Organization Address [facility] Co de Phone Number [facility] [place] [address] * Film Library- Storage Only CT Lower Extremity (2024 9:16 PM EDT) Narrative [facility][NOTE 3] - 2024 9:16 PM EDT This exam is auto-finalizing. It's purpose is for storage only. Arely Dickson MD IMG FILM LIBRARY ORD ERABLES Performing Organization Address City/[facility]/ZIP Co de Phone Number [place], [place] * Film Library- Storage Only CT Chest Abdomen Pelvis (2024 9:16 PM EDT) Narrative DEMETRA DOSS - 2024 9:16 PM EDT This exam is auto-finalizing. It's purpose is for storage only. Arely Dickson MD IMG FILM LIBRARY ORD ERABLES [facility][NOTE 3] [place] from Last 3 Months Advance Directives * Attempt Cardiopulmonary Resuscitation - Inpatient (Latest Code Status on File) Date Activated Date Inactivated Comments 05/10/2024 2:17 AM 05/23/2024 6:20 PM Question Answer Comments Code Status decision made by: Patient Content of discussion: Full code Healthcare Agents on File Name Relationship Healthcare Agent Relationship Communication Eddie Kolb Son/[id number] Health Care Agent Care Teams Financial Analyst Intern Relationship Specialty Start Date End Date None None PCP - General 11/26/17
--- OUTSIDE RECORDS SUMMARY | 2024-06-06 23:56 | XMS_ITS | Encounter Summary ---
Author Organization [facility] Address [address] [place] [address] Care Team Providers Care Family Nurse Name Role Phone Cruzito Guerrero MD Primary Care Provider Lisa chamberlain Encounter Details Date Type Department Care Team (Late st Contact Info) Description 01/15/2015 Results Only [facility] [phone] Tony Oliverio L, DO [address] [place] [address] Social History Tobacco Use Types [...] when reading/interpret ing unformatted reports. Name: ? CORTES JOSSY ? Accession #: ? [id number] ? : ? 1955 (Age: 59) ??M ? Collect Date: ? 01/15/2015 ? Location: ? [facility] ? Receive Date: ? 01/15/2015 ? Provider: OLIVERIO KING DO Copy to: CRUZITO GUERRERO MD ? [...] Verma 01/16/2015 01:32 PM End of Report [facility] 01/15/2015 18:2 1 EDT 01/15/2015 18:21 EDT Oliverio King DO PATHOLOGY ORDERABLES [facility] [address] [place] [address] documented in this encounter Visit Diagnoses Not on filedocumented in this encounter Care Teams Family Nurse Relationship Specialty Start Date End Date Cruzito Guerrero MD PCP - General 06/14/11 documented as of this encounter
--- OUTSIDE RECORDS SUMMARY | 2024-06-06 23:56 | XMS_ITS | Encounter Summary ---
Author Organization [facility] [place] [address] Care Team Providers Care Deliverer Food Name Role Phone None Primary Care Provider Unavailabl e Encounter Details Date Type Department Care Team (Late st Contact Info) Description 05/26/2024 Telephone [place] [phone] Marina Mason RN Social History Tobacco Use Types Packs/Day Years Used Date Smoking Tobacco: Former Cigarettes 14 0.6 S tarted: 2023 Smokeless Tobacco: Never Alcohol Use Standard Drinks/Week Comments Yes 0 (1 standard drink = 0.6 oz pur e alcohol) 3-4 PER [facility] Inpatient Questions Answer Date Recorded [...] Antimicrobials: Rodriguez Hein MD Review/Pertinent information: 1409: junior technical writer spoke with nursing staff at [facility] regarding IV ABX; patient is receiving Ceftriaxone 2 gIV daily; they were unaware of ordered labs. [facility]axed to [facility] on 05/26/24 at 1439 Fax confirmation on 05/26/24 at 1441 Documents faxed: OPAT order (see above) May f/ appointment schedule F/u: Weekly labs 06/03: ID CAB STATION ATTENDANT Lu Mason BS, RN, ACM-RN OPAT Program documented in this encounter Plan of Treatment Upcoming Encounters Date Type Department Care Team (Late st Contact Info) Description 06/10/2024 10:30 AM EDT Office Visit [place] [address] Elkin Gracia MD [facility] [place] [address] documented as of this encounter Visit Diagnoses Not on filedocumented in this encounter Care Teams Deliverer Food Relationship 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
--- OUTSIDE RECORDS SUMMARY | 2024-06-06 23:56 | XMS_ITS | Encounter Summary ---
Author Organization [facility] Address [address] [place] [address] Care Team Providers Care Epic Beacon Analyst Name Role Phone Cruzito Hager MD Primary Care Provider Lisa chamberlain Encounter Details Date Type Department Care Team (Late st Contact Info) Description 06/04/2024 Lab Requisition [facility] Pathology & Laboratory Medicine - [facility] [address] [place] [address] Outr Resulting Lab, Provider Social History Tobacco [...] Surface Ag Negative Negative 06/04/2024 18:55 EDT [facility] Blood VENOUS BLOOD / Unknown 06/03/2024 15:55 EDT 06/04/2024 17:25 EDT Provider Outr Resulting Lab CHEMISTRY & BLOOD GAS ORDERABLES Performing Organization Address City/[facility]/ZIP Co de Phone Number [facility] [address] [place], [place] [phone] * HEPATITIS C AB W REFLEX TO HCV RNA BY PCR (06/03/2024 15:55 EDT) Hep C Antibody Negative Negative 06/04/2024 19:27 EDT [facility] Blood VENOUS BLOOD / Unknown 06/03/2024 15:55 EDT 06/04/2024 17:25 EDT Provider Outr Resulting Lab CHEMISTRY & BLOOD GAS ORDERABLES Performing Organization Address City/[facility] Co de Phone Number [facility] [address] [place], [place] [phone] documented in this encounter Visit Diagnoses Not on filedocumented in this encounter Care Teams Epic Beacon Analyst Relationship Specialty Start Date End Date Cruzito Hager MD PCP - General 06/14/11 documented as of this encounter
--- OUTSIDE RECORDS SUMMARY | 2024-06-06 23:56 | XMS_ITS | Encounter Summary ---
Author Organization [facility] Address [address] [place] [address] Care Team Providers Care Animal Hospital Clerk Name Role Phone Curzito Hager MD Primary Care Provider Lisa chamberlain Encounter Details Date Type Department Care Team (Late st Contact Info) Description 12/15/2021 Lab Requisition [facility] Pathology & Laboratory Medicine - [facility] [address] [place] [address] Outr Resulting Lab, Provider Social History Tobacco [...] 0.0 - 4.5 ng/mL 12/15/2021 18:46 EST [facility] Blood VENOUS BLOOD / Unknown 12/14/2021 11:30 EST 12/15/2021 17:18 EST Narrative [facility] - 12/15/2021 18:46 EST NOTE: Serum PSA concentration should not be interpreted as absolute evidence for the presence or absence of malignant disease. Assayed on Siemens ADVIA Centaur XPT using chemiluminescent technology.??Values obtained by using different assay methods cannot be used interchangeably. Provider Outr Resulting Lab CHEMISTRY & BLOOD GAS ORDERABLES [facility] [address] [place] [address] documented in this encounter Visit Diagnoses Not on filedocumented in this encounter Care Teams Animal Hospital Clerk Relationship Specialty Start Date End Date rCuzito Hager MD PCP - General 06/14/11 documented as of this encounter
--- OUTSIDE RECORDS SUMMARY | 2024-06-06 23:56 | XMS_ITS | Encounter Summary ---
Author Organization [facility] Address [address] [place] [address] Care Team Providers Care Director Channel Name Role Phone Unknown, Provider Primary Care Provider [phone] Encounter Details Date Type Department Care Team (Late st Contact Info) Description 06/09/2011 Results Only [facility] - [facility] ([facility]) [address] [place], [place] [phone] Nicolas Chen MD [address] [place] [address] Social History Tobacco Use Types Packs/Day Years [...] ? KNIGHTS, GALE ? Accession #: ? [id number] ? : ? 1955 (Age: 56) ??M ? Collect Date: ? 06/09/2011 ? Location: ? [facility] ? Receive Date: ? 06/10/2011 ? Provider: NICOLAS CHEN MD ? Copy to: SO MEIERDIERCKS MD ? Final Pathologic Diagnosis: ? Rectum, [...] Chen MD PATHOLOGY ORDERABLES Performing Organization Address City/State/[facility] Co de Phone Number [facility] [address] [place] [address] documented in this encounter Visit Diagnoses Not on filedocumented in this encounter Care Teams Director Channel Relationship Specialty Start Date End Date Unknown, Provider, PCP - General 06/10/11 06/13/11 documented as of this encounter
--- OUTSIDE RECORDS SUMMARY | 2024-06-06 23:56 | XMS_ITS | Encounter Summary ---
Author Organization [facility] Address [address] [place] [address] Care Team Providers Care Basket Machine Operator Name Role Phone Cruzito Hager MD Primary Care Provider U navailable Reason for Visit * Reason Onset Date Comments Discuss Possible Transfer 06/06/2024 Encounter Details Date Type Department Care Team (Late st Contact Info) Description 06/06/2024 Telephone [facility] [address] [place] [phone] Kaya Swanson MD [address] [place] [phone] Discuss Possible Transfer (/) Social History Tobacco Use Types Packs/Day Years Used Date Smoking Tobacco: Never Assessed Sex and Gender Information Value Date Recorded Sex Assigned at Not on file Gender Identity Not on file Sexual Orientation Not on file documented as of this encounter Plan of Treatment Not on file documented as of this encounter Visit Diagnoses Not on filedocumented in this encounter Care Teams Basket Machine Operator Relationship Specialty Start Date End Date Cruzito Hager MD PCP - General 06/14/11 documented as of this encounter
--- OUTSIDE RECORDS SUMMARY | 2024-06-06 23:56 | XMS_ITS | Encounter Summary ---
Author Organization [facility] Address [address] [place] [address] Care Team Providers Care Physiotherapy Assistant Name Role Phone Cruzito Hager MD Primary Care Provider U cintia Encounter Details Date Type Department Care Team (Latest Contact Info) Description 01/15/2015 9:25 EDT - 01/15/2015 23:59 EDT Hospital Encounter [address] [address] Unknown, Provider, Discharge Disposition: Home or Self Care Social History Tobacco Use Types Packs/Day Years Used Date Smoking Tobacco: Never Assessed Sex and Gender Information Value Date Recorded Sex Assigned at Not on file Gender Identity Not on file Sexual Orientation Not on file documented as of this encounter Discharge Disposition Disposition Code Departure Means Destination Home or Self Group Home documented in this encounter Plan of Treatment Not on file documented as of this encounter Visit Diagnoses Not on filedocumented in this encounter Care Teams Physiotherapy Assistant Relationship Specialty Start Date End Date Cruzito Hager MD PCP - General 06/14/11 documented as of this encounter
--- OUTSIDE RECORDS SUMMARY | 2024-06-06 23:56 | XMS_ITS | Encounter Summary ---
Author Organization [facility] Address [address] [place] [address] Care Team Providers Care Lye Boiler Name Role Phone Cruzito Hager MD Primary Care Provider Lisa chamberlain Encounter Details Date Type Department Care Team (Late st Contact Info) Description 06/04/2024 Lab Requisition [facility] Pathology & Laboratory Medicine - [facility] [address] [place] [address] Outr Resulting Lab, Provider Social History Tobacco [...] Generation Negative Negative 06/04/2024 19:41 EDT [facility] Comment:If acute HIV-1 infec tion is suspected in a high risk patient, submit plasma specimen for HIV-1 RNA quantitation test. Blood VENOUS BLOOD / Unknown 06/03/2024 15:55 EDT 06/04/2024 17:25 EDT Narrative [facility] - 06/04/2024 19:41 EDT Fourth Generation assay performed on the [employer] - Financial Reconciliationaur XPT. Provider Outr Resulting Lab IMMUNOLOGY A ND SEROLOGY ORDERABLES [facility] [address] [place] [phone] documented in this encounter Visit Diagnoses Not on filedocumented in this encounter Care Teams Lye Boiler Relationship Specialty Start Date End Date Cruzito Hager MD PCP - General 06/14/11 documented as of this encounter
--- OUTSIDE RECORDS SUMMARY | 2024-06-06 23:56 | XMS_ITS | Encounter Summary ---
Author Organization [facility] Address [address] [place] [address] Care Team Providers Care Employee Representative Name Role Phone Cruzito Hager MD Primary Care Provider Lisa chamberlain Encounter Details Date Type Department Care Team (Late st Contact Info) Description 07/29/2020 Lab Requisition [facility] Pathology & Laboratory Medicine - [address] [address] Outr Resulting Lab, Provider Social History Tobacco [...] 0.0 - 4.5 ng/mL 07/29/2020 17:49 EDT [facility] Blood VENOUS BLOOD / Unknown 07/28/2020 7:59 EDT 07/29/2020 16:13 EDT Narrative [facility] - 07/29/2020 17:49 EDT NOTE: Serum PSA concentration should not be interpreted as absolute evidence for the presence or absence of malignant disease. Assayed on Siemens ADVIA Centaur XPT using chemiluminescent technology.??Values obtained by using different assay methods cannot be used interchangeably. Provider Outr Resulting Lab CHEMISTRY & BLOOD GAS ORDERABLES [facility] [address] [place] [address] documented in this encounter Visit Diagnoses Not on filedocumented in this encounter Care Teams Employee Representative Relationship Specialty Start Date End Date Cruzito Hager MD PCP - General 06/14/11 documented as of this encounter
--- OUTSIDE RECORDS SUMMARY | 2024-06-06 23:56 | XMS_ITS | Encounter Summary ---
Author [facility] [place] [address] Care Team Providers Care Automotive Parts Coordinator Name Role Phone None Primary Care Provider Unavailabl e Encounter Details Date Type Department Care Team (Late st Contact Info) Description 05/30/2024 Telephone [place] [phone] Lu Mcfarland APRN [facility] [place] [address] Social History Tobacco Use Types Packs/Day Years Used Date Smoking Tobacco: Former Cigarettes 14 0.6 S tarted: 2023 Smokeless Tobacco: Never Alcohol Use Standard Drinks/Week Comments Yes 0 (1 standard drink = 0.6 oz pur e alcohol) 3-4 PER [facility] Inpatient Questions Answer Date Recorded [...] 06/04/2024. Call to patient's rehab center in [facility] to inquire about recent abnormal lab work. Patient's CRP increased from 14.1 to 171 in five days. Per the unit nurse manager of information, patient, has quite a bitof edema in both of his legs. His edema is much worse. He also states that patient is being treated for a sacral decubitus which could be causing the CRP increase. The facility has an MD and HEALTH AND SAFETY INSTRUCTOR providing medical care to the patients and [...] follow-up per the rehab with MD and HEALTH AND SAFETY INSTRUCTOR EOT visit scheduled in ID next week Repeat lab work early next week: CBC w/diff, CMP, and CRP Lu Mcfarland APRN, Infectious Disease 05/30/2024 12:30 PM documented in this encounter Plan of Treatment Upcoming Encounters Date Type Department Care Team (Late st Contact Info) Description 06/10/2024 10:30 AM EDT Office [place] [address] Elkin Garcia MD [facility] [place] [address] documented as of this encounter Visit Diagnoses Not on filedocumented in this encounter Care Teams Automotive Parts Coordinator Relationship 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
--- OUTSIDE RECORDS SUMMARY | 2024-06-06 23:56 | XMS_ITS | Encounter Summary ---
Author Organization [facility] Address [address] [place] [address] Care Team Providers Care Correction Officer Name Role Phone Cruzito Hager MD Primary Care Provider Lisa chamberlain Encounter Details Date Type Department Care Team (Late st Contact Info) Description 07/11/2020 Lab Requisition [facility] Pathology & Laboratory Medicine - [facility] [address] [place] [address] Outr Resulting Lab, Provider Social History Tobacco [...] Priority Date/Time Associated Diagnosis Comments ZZCOVID-19 TEST [facility] PCR Today 07/11/2020 8:50 EDT COVID-19 TESTING Routine 07/11/2020 8:50 EDT documented in this encounter Results * COVID-19 TEST [facility] PCR (07/11/2020 8:50 EDT) Swab ENTIRE NASOPHARYNX / Unknown 07/11/2020 8:50 EDT 07/11/2020 15:32 EDT Provider Outr Resulting Lab MICROBIOLOGY - GENERAL ORDERABLES Performing Organization Address City/State/[facility] Co de Phone Number [facility] [address] [place] [address] * COVID-19 TESTING (07/11/2020 8:50 EDT) COVID-19 rt-PCR Result Negative Negative 07/11/2020 19:36 EDT [facility] Comment: This test has not [...] history, and epidemiological information. Performed on the Doctors Togetherher Fusion instrument Performing Lab [place] [facility] 07/11/2020 19:36 EDT [facility] Swab 07/11/2020 8:50 EDT 07/11/2020 15:32 EDT Provider Outr Resulting Lab MICROBIOLOGY - GENERAL ORDERABLES Performing Organization Address [facility] Co de Phone Number [facility] [address] [place] [address] documented in this encounter Visit Diagnoses Not on filedocumented in this encounter Care Teams Correction Officer Relationship Specialty Start Date End Date Cruzito Hager MD PCP - General 06/14/11 documented as of this encounter
--- OUTSIDE RECORDS SUMMARY | 2024-06-06 23:57 | XMS_ITS | Encounter Summary ---
[place] [address] Care Team Providers Care Pressed Or Blown Glass Worker Name Role Phone None Primary Care Provider Unavailabl e Reason for Referral * Consultation (Routine) - Authorized Specialty Diagnoses / Procedures Referred By Contac t Referred To Contact Nephrology Diagnoses Stage 4 chronic kidney disease Juan oJsé Harrison MD [facility] GENER[place] [address] [facility] Nephrology [address] [place] [phone] Referral ID Status Reason Start Date Expiration Date Visits Requested Visits Authorized [id number] Authorized Specialty Service Requested 05/23/2024 05/23/2025 1 1 * Consultation (Routine) - Authorized Specialty Diagnoses / Procedures Referred By Contac t Referred To Contact Infectious Diseases Diagnoses Osteomyelitis of second toe of right foot Rodriguez Hein MD [facility] [place] [address] [facility] Infectious Dis [address] [place] [phone] Referral ID Status Reason Start Date Expiration Date Visits Requested Visits Authorized [id number] Authorized Assume Subset of Care 05/17/2024 05/17/2025 1 1 Reason for Visit * Auth/Cert (Routine) Specialty Diagnoses / Procedures Referred By Contac t Referred To Contact Diagnoses Septic shock septiic shock Procedures ER Tho Aquino MD [facility] [place] [address] [facility] Referral ID Status Reason Start Date Expiration Date Visits Re quested Visits Authorized [id number] 1 1 Encounter Details Date Type Department Care Team (Latest Contact Info) Description 05/10/2024 2:12 AM EDT - 05/23/2024 4:14 PM EDT Hospital Encounter Surgical Unit Level 4 [place] [id number] Tho Dickson MD [facility] [address] Mary De La Fuente MD [address] [place] [address] [place] [address] [place] [address] Septic shock; Altered tissue perfusion; Osteomyelitis of [...] pur e alcohol) 3-4 PER [facility] Inpatient Questions Answer Date Recorded Does [...] Jossy Shanks Patient Age: 69 y.o. Language: Palauan Race: White Ethnicity: Not nor Admit date: [...] your inpatient physician through the [facility] Industrial Relations Counselor . Issues afterhours and on weekends will [...] home oxygen, HFpEF, HTN who presented to [facility] for rt LE cellulitis, transferred to [facility] for septic shock. At end of March he dropped cylinder block on rt foot, bleeding and painful. Kept bandaged and sock on it, same sock on it for the last week, reports sock became fused to wound. Denies paresthesia. Wasable to walk w/out difficulty. In last several days erythema and edema spread upper Rt LE to knee. Fevers & chills for last 24hrs. [place] lightheaded, weak, & couldn't get out of [...] OSH departure. On arrival to [facility]: HR 96, o2 sat mid 90s on [...] same day as transfer to [facility]. On the general medicine floor, he was [...] border dressing. (Melgisorb Ag 6x6 PS # [id number]) (Melgisorb Ag 4x4 PS # [id number]) Sacrum/ischium: open to air, utilize Z-guard if [...] 05/10/2024 2:37 AM) Result Value WORKSTATION ID [id number] Impression Bibasilar atelectasis. Thank you for letting us participate in the care of this patient. If you are a health care provider and have any questions regarding this report, please contact the number below. For patients who have questions please contact the health child care attendant that requested your imaging first. Foot wwo Contrast Right (Exam End: 05/10/2024 5:51 AM) Result Value WORKSTATION ID [id number] Impression 1. Soft tissue irregularity of the [...] have questions please contact the health child care attendant that requested your imaging first. Electronically signed by: Trinidad Mota MD, [facility] ([phone]), at 05/10/2024 12:56 PM US Retroperitoneal Complete (Exam End: 05/20/2024 10:36 AM) Result Value WORKSTATION ID [id number] Impression 1. Very limited exam secondary to [...] signed by: Teofilo Ruiz MD, [facility] ([phone]), at 05/20/2024 11:30 AM Thank you for letting us participate in the care of this patient. If you are a health care provider and have any questions regarding this report, please contact the number above. For patients who have questions, please contact the health child care attendant that requested your imaging first. Teofilo Ruiz, Staff Physician Electronically Signed Final Report 05/20/2024 11:36 am Pending Studies and Lab Data: Discharge Conditions/Prognosis: s/p Left 2nd toe amputation, recovering, requiring rehab. Back to baseline. Discharge to: [facility] Updated Allergies/ADRs: No Known Allergies [...] 2:00 PM Lu Mcfarland APRN [facility] ID 5C [facility] 06/05/2024 4:00 PM Elkin Garcia MD [facility] ORTH 3C [facility] Your Discharge Medication List Your Medications New [...] as much as possible. Call your doctor ([phone]) if you develop: Fever greater than 100.5 Severe nausea or vomiting Increasing pain that is not controlled by pain medications Increasing redness, swelling, or drainage from incisions Change in sensation FOLLOW-UP APPOINTMENTS: 1. You will have follow-up appointments at [facility] as indicated below in Future Appointment and Orders. 2. You will need to have x-rays prior to your follow-up appointment listed below. Please come to Radiology, desk 3T, 1 hour BEFORE that appointment for these x-rays. Future Appointments Date Time Provider Department Center 06/03/2024 2:00 PM Lu Mcfarland APRN [facility] ID 5C [facility] 06/05/2024 4:00 PM Elkin Garcia MD [facility] ORTH 3C [facility] If you have questions or concerns: Sunday [...] the day after the procedure, use an vzqh-gkq-caoxpat spray to numb your throat. Sucking on [...] occurs, please contact your Doctor. Please call [phone] before 8pm Mon-Fri with problems, questions or concerns. If you call after 8pm or on weekends, call the Hospital at [phone] and ask to speak to the Moving Worker high tension tester and the scrap drop crane operator will contact that person for you. When should you call for help? Call [phone] anytime you think you may need emergency [...] any problems. Where can you learn more? [facility] View your After Visit Summary and more online at [email or web address] If you would like to provide feedback about your hospital experience, please call the Office of Patient and Family Relations at . If you have received this After Visit Summary in error, please immediately return it in person to the department, or notify the [facility] Privacy Office by calling toll free at between the hours of 8AM and 5PM to arrange for our retrieval of the documents at no cost to you. Content Version: 12.2 ?? [phone] [employer]. Care instructions adapted under license by [facility]. If you have questions about a medical condition or this instruction, always ask your healthcare professional. [employer] disclaims any warranty or liability for your [...] is during regular working hours, please call [phone]. If it is after 5 pm or a weekend or holiday, call [phone] and ask for the Glue Reel Operator high tension tester for Interventional Radiology. You have received medication [...] Mcfarland APRN Infectious Disease at [facility] Arrive at: [employer] Well Log[employer] Operator Area 5C [phone] 06/05/2024 4:00 PM Elkin Garcia MD Orthopaedics at [facility] Arrive at: [facility] Operator Area 3C [phone] Future Orders Complete By Expires OPAT: Order / Recommendation for Post Discharge IV Antibiotic Management [OGK007 CPT(R)] As directed Process Instructions: If no progress note charted, please enter Clinical details in comments. Scheduling Instructions: Comments: - If this order was signed greater than 72 hours prior to [facility] discharge, please call to confirm the accuracy of this order. Please Fax all results to: OPAT Program Infectious Disease Section [facility], [place] [address] FAX: - After hours, please contact the Infectious Disease Physician high tension tester at . - Line care instructions - see flush/heparin orders. Facilities may follow organizational policies/practices regarding heparin. - retirement for medication administration/wrecking supervisor and catheter care/maintenance authorized. HD Line [...] draw labs every Sunday fax results to [facility] at [phone]. Please draw labs off PICC line. Please see [facility] order for lab draw details. Please RN visit for IV ABX teaching and ongoing assessment. Fpc for Medication Administration/Hookup and catheter care/maintenance: - Teach Patient/Caregiver goals/self-monitoring/therapy administration to independence per the Nursing Care Plan. - retirement visit frequency; initial, weekly and 2 PRN [...] 05/20/2024 11:36 am) PATIENT INFO: ID #: [id number].: [id number] (69 yrs)(M) Name: JOSSY SHANKS Visit Date: 05/20/2024 10:34 am PERFORMED BY: Attending: Teofilo Ruiz MD Resident: Trinidad Light MD Performed By: Lulu Shin RDMS Referred By: SABA SPEARS Location: [place] SERVICE(S) PROVIDED: URETRO - Retroperitoneal Complete - [id number] INDICATIONS: CKD, increase BUN TECHNIQUE/SCAN QUALITY: Scan [...] signed by: Teofilo Ruiz MD, [facility] ([phone]), at 05/20/2024 11:30 AM Thank you for letting us participate in the care of this patient. If you are a health care provider and have any questions regarding this report, please contact the number above. For patients whohave questions, please contact the health child care attendant that requested your imaging first. Teofilo Ruiz, Staff Physician Electronically Signed Final Report 05/20/2024 11:36 am My clinical question: Patient to establish for CKD management Do not type below here [id number] Questions: My question or request is: See comment Provider Contact Information: None None None Discharge References/Attachments Low Phosphorus Foods: General Info (Palauan) Low Potassium Foods: General Info (Palauan) documented in this encounter Discharge Instructions * [...] the day after the procedure, use an bmth-jqt-nodbnin spray to numb your throat. Sucking on [...] occurs, please contact your Doctor. Please call [phone] before 8pm Mon-Fri with problems, questions or concerns. If you call after 8pm or on weekends, call the Hospital at [phone] and ask to speak to the Moving Worker high tension tester and the scrap drop crane operator will contact that person for you. [...] any problems. Where can you learn more? [facility] View your After Visit Summary and more online at [email or web address] If you would like to provide feedback about your hospital experience, please call the Office of Patient and Family Relations at . If you have received this After Visit Summary in error, please immediately return it in person to the department, or notify the [facility] Privacy Office by calling toll free at between the hours of 8AM and 5PM to arrange for our retrieval of the documents at no cost to you. Content Version: 12.2 ?? [phone] [employer] Care instructions adapted under license by [facility]. If you have questions about a medical condition or this instruction, always ask your healthcare professional. [employer] disclaims any warranty or liability for your [...] is during regular working hours, please call [phone]. If it is after 5 pm or a weekend or holiday, call [phone] and ask for the Glue Reel Operator high tension tester for Interventional Radiology. You have received medication [...] 2:00 PM Lu Mcfarland APRN [facility] ID 5C [facility] 06/05/2024 4:00 PM Elkin Garcia MD [facility] ORTH 3C [facility] Your Discharge Medication List Your Medications New [...] as much as possible. Call your doctor ([phone]) if you develop: Fever greater than 100.5 Severe nausea or vomiting Increasing pain that is not controlled by pain medications Increasing redness, swelling, or drainage from incisions Change in sensation FOLLOW-UP APPOINTMENTS: 1. You will have follow-up appointments at [facility] as indicated below in Future Appointment and Orders. 2. You will need to have x-rays prior to your follow-up appointment listed below. Please come to Radiology, desk 3T, 1 hour BEFORE that appointment for these x-rays. Future Appointments Date Time Provider Department Center 06/03/2024 2:00 PM Lu Mcfarland APRN [facility] ID 5C [facility] 06/05/2024 4:00 PM Elkin Garcia MD [facility] ORTH 3C [facility] If you have questions or concerns: Sunday through Sunday, 8 AM - 5 PM, please call Dr. Saba Spears MD's office at . If it is after 5 PM, the weekend, or holidays, please call and ask to speak with theOrthopedic resident on-call. * Attachments The following attachments cannot be sent through Care Everywhere. * Low Phosphorus Foods: General Info (Palauan) * Low Potassium Foods: General Info (Palauan) documented in this encounter Medications at Time [...] spent >30 minutes (Day of Discharge Code 63742) involved in the final examination of the patient, discussion of the hospital stay, instructions for continuing care to all relevant caregivers, and preparation of discharge records, prescriptions and referral forms. Plans Discharge to [facility] rehab Follow-up scheduled with ID, ortho, provider at [facility] Please see the Discharge Summary for complete details of any medication changes and additional plans. * Yg Jaffe - 05/23/2024 2:44 PM EDT Office of Care Management(OCM)/Manager Global(RS) Patient Name: Jossy Shanks : 1955 Patient has been offered a SNF bed at [phone]. [facility] arranged for a BLS transport at 1530. Ambulance will need: Medicare ambulance form completed and signed (MD or Composing Machine Operator/Tender) Copy of patient demographics [place] [facility] [place] [facility] DNR/DNI order, if active No MD to MD report necessary. Please call Nursing Report to , ask for custom feed corn operator. Info to accompany patient: Narcotic Prescriptions Copies of Medication Administration Records and IV sheets for past two weeks. Plan: Manager Global will be available to the patient and Composing Machine Operator/Tender for further assistance. Patient to discharge to: [facility] [address] [place] [address] Yg Jaffe Manager Global * Shirley Samuel RN - 05/23/2024 12:05 PM EDT Physician Certification Statement for Non-Emergency Ambulance Services Section I - General Information Jossy Shanks 1955 Medicare Number: n/a Transport Date: 05/23/2024 (PCS is valid for round trips on this date and for all repetitive trips in the 60-day range as noted below.) Origin: [facility] Destination: [facility] Is [...] van (i.e. seated during transport, without medical supervisor or monitoring?): No 4) In addition to [...] the Centers of Medicare and Medicaid Services ([facility]) to support the determination of medical [...] extremities. AAOx3 Labs: Labs personally reviewed in [facility] CBC: Recent Labs 05/23/24 0119 05/22/24 [...] signed by: Teofilo Ruiz MD, [facility] ([phone]), at 05/20/2024 11:30 AM Thank you for letting us participate in the care of this patient. If you are a health care provider and have any questions regarding this report, please contact the number above. For patients who have questions, please contact the health child care attendant that requested your imaging first. [...] have questions please contact the health child care attendant that requested your imaging first. Electronically signed by: Trinidad Mota MD, [facility] ([phone]), at 05/10/2024 12:56 PM XR Chest One View Final Result Bibasilar atelectasis. Thank you for letting us participate in the care of this patient. If you are a health care provider and have any questions regarding this report, please contact the number below. For patients who have questions please contact the health child care attendant that requested your imaging first. SCOPY: Reports [...] as documented. Tl Steele MD [facility] Gastroenterology * Irene Bravo RN - 05/22/2024 [...] Zhao RN - 05/22/2024 12:47 PM EDT Nursing Agency Manager spoke with JACKIE Nuñez from Endo [...] Galvan MD - 05/22/2024 6:57 AM EDT [facility] Medicine - [...] with PT - hoping to go to [facility] today Meds: pantoprazole 40 mg Intravenous BID [...] shoe, c/w pt - Bed ready at [facility] #IDDM Home regiment: 1.2mg liraglutide qd, [...] EGD, and availability of bed at [facility]. -ordered T&S in case continues to drop [...] Medicine Hospital Medicine Red Team - Pager [phone] Associated attestation - Saba Spears MD - [...] will transfuse and monitor response. Dispo to [facility] for rehab pending Hgb stability and EGD. I have examined the patient myself and personally reviewed all studies. In addition, I certify thatI am a D-H credentialed attending provider with admitting privileges and that the patient meets or has met medical necessity to require an inpatient IPI level of care meeting a minimum of two midnights or is on the [facility] inpatient only procedure list (status C) due to: OM requiring IV abx * Lazaro Aaron, BODY SANDER - 05/21/2024 4:05 PM EDT Physical Therapy [...] discharge to swing bed rehab facility vs long-term facility once medically ready for hospital discharge. Pt will continue to benefit from skilled physical therapy while in the hospital in order to maximize independence and safety with functional mobility and achieve therapeutic goals. Discharge Recommendations: Based on current findings- swing bed rehabilitation facility, long-term facility Discharge recommendation is based on the [...] with stable vital signs. Total Time: 34 (2620-4727) minutes. TAx2 Lazaro Aaron PTA Pager: [phone] Physical Therapy Inpatient Rehabilitation Department * Penny [...] decreased insight into deficits Vision: corrective lenses revenue agent Endurance: decreased activity tolerance Vitals: Stable on [...] with activities of daily living. Discharge Recommendation: long-term facility, swing bed rehabilitation facility Equipment Recommendations: [...] 2-3 times/wk Total Minutes, Occupational Therapy: 40 ([facility] x3 ([phone])) Pager: [phone] Penny Rodriguez OT Occupational Therapy Rehabilitation Department [...] of : 1955 AGE: 69 y.o. Address: [address] [place] [address] (home) Mobile: Telephone Information: Referring Provider: Anna [...] Medicine Hospital Medicine Red Team - Pager [phone] Associated attestation - Saba Spears MD - [...] mid 7s. Appreciate GI consult. Dispo to [facility] pending Hgb and EGD. I have examined the patient myself and personally reviewed all studies. In addition, I certify thatI am a D-H credentialed attending provider with admitting privileges and that the patient meets or has met medical necessity to require an inpatient IPI level of care meeting a minimum of two midnights or is on the [facility] inpatient only procedure list (status C) [...] Galvan MD - 05/20/2024 6:20 AM EDT [facility] Medicine - Red Team Inpatient [...] Pip-tazo and vanc c/w CTX Planning for [facility] central line, instead of PICC Has [...] Mihaela Galvan MD 05/20/2024 PGY-3, Internal Medicine [facility] Medicine Red Team - Pager [phone] Associated attestation - Saba Spears MD - [...] of two midnights or is on the [facility] inpatient only procedure list (status C) [...] discharge to swing bed rehab facility vs long-term facility once medically ready for hospital discharge. Pt will continue to benefit from skilled physical therapy while in the hospital in order to maximize independence and safety with functional mobility and achieve therapeutic goals. Discharge Recommendations: Based on current findings- swing bed rehabilitation facility, long-term facility Discharge recommendation is based on the [...] Ho PT, Doctor of Physical Therapy Pager: [phone] Physical Therapy Inpatient Rehabilitation Department * Rebeca [...] decreased insight into deficits Vision: corrective lenses revenue agent Endurance: decreased activity tolerance Vitals: Stable on [...] with activities of daily living. Discharge Recommendation: long-term facility, swing bed rehabilitation facility Equipment Recommendations: [...] times/wk Total Minutes, Occupational Therapy: 47 Pager: [phone] Rebeca Moeller OT Occupational Therapy Rehabilitation Department * Mihaela Galavn MD - 05/19/2024 6:43 AM EDT [facility] Medicine - [...] Mihaela Galvan MD 05/19/2024 PGY-3, Internal Medicine [facility] Medicine Red Team - Pager [phone] Associated attestation - Saba Spears MD - [...] for a hospital day 9 nutrition evaluation. Nursing Agency Manager met with pt at bedside. Pt [...] unless consulted in the interim. Julissa Weathers Soft Sugar Supervisor * Mihaela Galvan MD - 05/18/2024 7:20 AM EDT [facility] Medicine - Red Team Inpatient [...] Medicine Hospital Medicine Red Team - Pager [phone] Associated attestation - Saba Spears MD - [...] Harrison MD - 05/17/2024 6:28 AM EDT [facility] Medicine Red Team Inpatient Progress Note [...] José Harrison MD 05/17/2024 PGY-3, Internal Medicine [facility] Medicine Red Team - Pager [phone] Associated attestation - Saba Spears MD - [...] 6.64) performed by Elkin Garcia MD at [facility] MAIN OR Active Non-Hospital Problems Diagnosis [...] [place] PT, Doctor of Physical Therapy Pager: [phone] Physical Therapy Inpatient Rehabilitation Department * Emmanuel [...] History: Housing: lives in a camper in [facility] Occupation: Former [employer], retired in 2017 [...] - Date/Time MRSA PCR Screen ([facility]/CGP/APD/[facility]H) [[id number]] Collected: 05/15/24 1615 Lab Status: Final result Specimen: Nasopharyngeal Swab Updated: 05/15/242012 MRSA Result Negative MRSA Interp -- Methicillin-resistant Staphylococcus aureus (MRSA) is NOT DETECTED The MRSA target DNA sequences (mec and SCC) were not detected within the acceptable ranges using the Xpert MRSA NxG on the GeneXpert Dx System ([employer]). This suggests the absence of MRSA in the patient specimen submitted for testing. This test is cleared by the U.S. Food and Drug Administration for clinical use and its performance characteristics have been verified by the [facility] at [facility]. This result does not rule out the presence of any other organisms. Rare false negative results may occur if MRSA is present at low concentrations with much higher concentrations of other organisms including MRSE or S. aureus with an empty SCC cassette. Comment: [VERIFIED DATE]05.15.24 Verified By:Lupe Jensen (Electronic Signature) Tissue Culture, Aerobic & Anaerobic Toe [[id number]] (Abnormal) Collected: 05/14/24 1133 Lab Status: Preliminary result Specimen: Toe Updated: 05/15/24 1212 Tissue culture [[id number]] (Abnormal) Collected: 05/14/24 1133 Lab Status: Preliminary result Specimen: Toe Updated: 05/15/24 1212 Tissue Culture No growth to date. Gram Stain -- Few Neutrophils seen Rare Gram Positive Cocci in pairs seen Results called to and read back by Dr. Mihaela Galvan 05/14/24 14:57:00 Organism Gram Positive Cocci in pairs Anaerobic Culture [[id number]] Collected: 05/14/24 1133 Lab Status: Preliminary result Specimen: Toe Updated: 05/15/24 1124 Anaerobic Culture No anaerobic organisms isolated to date Blood culture [[id number]] Collected: 05/10/24 0232 Lab Status: Final result Specimen: Blood from Hand, Right Updated: 05/15/24 0701 Blood Culture No growth at 5 days. Skin/Superficial Wound Culture Toe [[id number]] (Abnormal) Collected: 05/10/24 0256 Lab Status: Final [...] follow. Please page ID Red team (pager [phone]) with questions or concerns. Emmanuel Corey, DO Internal Medicine PGY-2 Pager: [phone] Epic Chat 05/16/2024 Associated attestation - Rodriguez [...] from the original note were not included. [facility] Medicine - Red Team [...] Intake/Output Summary (Last 24 hours) at 05/16/2024 0684 Last data filed at 05/16/2024 0355 Gross [...] - Date/Time MRSA PCR Screen ([facility]/CGP/APD/[place]) [[id number]] Collected: 05/15/24 1615 Lab Status: Final result Specimen: Nasopharyngeal Swab Updated: 05/15/242012 MRSA Result Negative MRSA Interp -- Methicillin-resistant Staphylococcus aureus (MRSA) is NOT DETECTED The MRSA target DNA sequences (mec and SCC) were not detected within the acceptable ranges using the Xpert MRSA NxG on the GeneXpert Dx System ([employer]). This suggests the absence of MRSA in the patient specimen submitted for testing. This test is cleared by the U.S. Food and Drug Administration for clinical use and its performance characteristics have been verified by the [facility] at [facility]. This result does not rule out the presence of any other organisms. Rare false negative results may occur if MRSA is present at low concentrations with much higher concentrations of other organisms including MRSE or S. aureus with an empty SCC cassette. Comment: [VERIFIED DATE]05.15.24 Verified By:Lupe Jensen (Electronic Signature) Tissue Culture, Aerobic & Anaerobic Toe [[id number]] (Abnormal) Collected: 05/14/24 1133 Lab Status: Preliminary result Specimen: Toe Updated: 05/15/24 1212 Tissue culture [[id number]] (Abnormal) Collected: 05/14/24 113 Lab Status: Preliminary result Specimen: Toe Updated: 05/15/24 1212 Tissue Culture No growth to date. Gram Stain -- Few Neutrophils seen Rare Gram Positive Cocci in pairs seen Results called to and read back by Dr. Mihaela Galvan 05/14/24 14:57:00 Organism Gram Positive Cocci in pairs Anaerobic Culture [[id number]] Collected: 05/14/24 1133 Lab Status: Preliminary result Specimen: Toe Updated: 05/15/24 1124 Anaerobic Culture No anaerobic organisms isolated to date Blood culture [[id number]] Collected: 05/10/24 0232 Lab Status: Final result Specimen: Blood from Hand, Right Updated: 05/15/24 0701 Blood Culture No growth at 5 days. Skin/Superficial Wound Culture Toe [[id number]] (Abnormal) Collected: 05/10/24 0256 Lab Status: Final [...] PGY-1, Internal Medicine Red Team - Pager [phone] Associated attestation - Treva Diaz MD - [...] of two midnights or is on the [facility] inpatient only procedure list (status C) [...] likely suture removal on 06/05/24. Please page [phone] with any questions or concerns. Activity: NWB until forefoot offloading shoe DVT prophylaxis: per primary, rec 30 days LVX or ASA81 BID Closure: Sutures (to be removed at Orthopaedic follow-up appointment) Dressing: bacitracin, xeroform, 4x4, kerlix, DEREK x 7 days Antibiotics: per primary Isra Rodriguez IV, DO 05/16/2024 Future Appointments Date Time Provider Department Center 06/05/2024 4:00 PM Elkin Garcia MD [facility] ORTH 3C [facility] * Mihaela Galvan MD - 05/15/2024 6:41 AM EDT Images from the original note were not included. [facility] Medicine - Red Team [...] Procedure Component Value - Date/Time Tissue culture [[id number]] (Abnormal) Collected: 05/14/24 1133 Lab Status: Preliminary result Specimen: Toe Updated: 05/14/24 1459 Gram Stain -- Few Neutrophils seen Rare Gram Positive Cocci in pairs seen Results called to and read back by Dr. Mihaela Galvan 05/14/24 14:57:00 Organism Gram Positive Cocci in pairs Blood culture [[id number]] Collected: 05/10/24 0232 Lab Status: Preliminary result Specimen: Blood from Hand, Right Updated: 05/14/24 0701 Blood Culture No growth at 4 days. Skin/Superficial Wound Culture Toe [[id number]] (Abnormal) Collected: 05/10/24 0256 Lab Status: Final [...] PGY-1, Internal Medicine Red Team - Pager [phone] Associated attestation - Treva Diaz MD - [...] of two midnights or is on the [facility] inpatient only procedure list (status C) [...] 4:00 PM Elkin Garcia MD [facility] * Savannah Sy RN - 05/14/2024 1:45 [...] SURGERY INPATIENT PROGRESS NOTE Patient Name: Jossy Shnaks Age: 69 y.o. Surgery/Issue: 2nd transmetatarsal amputation [...] 4:00 PM Elkin Garcia MD [facility] * Mihaela Galvan MD - 05/14/2024 6:04 [...] PGY-1, Internal Medicine Red Team - Pager [phone] Associated attestation - Treva Diaz MD - [...] OR for the above procedure. Please page [phone] if there are any concerns regarding OR [...] Galvan MD - 05/13/2024 6:28 AM EDT [facility] Medicine - [...] PGY-1, Internal Medicine Red Team - Pager [phone] Associated attestation - Treva Diaz MD - [...] of two midnights or is on the [facility] inpatient only procedure list (status C) due to: RLE cellulitis with concern forosteomyelitis. Continue on iv antibiotics and follow up with orthopedics regarding any surgical debridement . * Sarwat Marti - 05/12/2024 2:20 PM EDT Sanitation Lead Encounter Note Patient Name: Jossy Shanks : [id number] MR#: [id number] Admit Date: 05/10/2024 2:12 AM Hospital Day 2 days Narrative:Visited to introduce and assess acceptance of Sanitation Lead services. Patient was sleeping and I will visit an other time. Assessment: Intervention and Outcome: Follow-up: Time in Direct Care: Sarwat Marti 05/12/2024 * Mihaela Galvan MD - 05/12/2024 6:36 AM EDT [facility] Medicine - [...] PGY-1, Internal Medicine Red Team - Pager [phone] Associated attestation - Treva Diaz MD - [...] of two midnights or is on the [facility] inpatient only procedure list (status C) due to: RLE cellulitis with concern forosteomyelitis. Continue on iv antibiotics and discuss with orthopedics regarding any urgent need for surgical debridement. * Rodriguez Tian MD - 05/11/2024 10:23 AM EDT MEDICINE PAGER [phone] - [facility] Daily Progress Note Admit Date: 05/10/2024 [...] (Xarelto, dilt, coreg), admitted to [facility] on 05/10/2024 with LE cellulitis 2/2 right [...] CHO counting level 2 Last BM documented: (BODY SANDER) DVT Prophylaxis: Heparin DOAC Code Status: Attempt [...] of two midnights or is on the [facility] inpatient only procedure list (status C) [...] presented to a local emergency [facility] yesterday ([id number] birthday) due to ongoing wound issues and [...] minimumof two midnights or is on the [facility] inpatient only procedure list (status C) [...] on Lasix, HTN on Losartan,who presented to [facility] for rt LE cellulitis, transferred to [facility] for septic shock. Interval Events: - lactate [...] 05/10/2024 2:37 AM) Result Value WORKSTATION ID [id number] Impression Bibasilar atelectasis. Thank you for letting us participate in the care of this patient. If you are a health care provider and have any questions regarding this report, please contact the number below. For patients who have questions please contact the health child care attendant that requested your imaging first. foot pending [...] - 05/10/2024 2:56 AM EDT [facility] TeleICU Initial Assessment Note I established audio/visual [...] whole blood, send to lab ([facility]/P) Result Value Lactate WB 2.3 (H) Prothrombin [...] clinical appearance is worrisome -Awaiting [facility] admission K+ level and Chem 7 -Would [...] and osteomyelitis s/p 2ng toe amputation requiring oysterman IV antibiotic administration who presents to Interventional [...] IR History: None listed at [facility] Anticoagulation/Antiplatelet: None listed Labs: Lab Results Component [...] Assessment: 69 y.o. male with OM requiring oysterman IV ABX presenting to Interventional Radiology for [...] 6.64) performed by Elkin Garcia MD at [facility] MAIN OR Social History and Habits: [...] and osteomyelitis s/p 2ng toe amputation requiring oysterman IV antibiotic administration who presents to Interventional [...] IR History: None listed at [facility] Anticoagulation/Antiplatelet: None listed Labs: Lab Results Component [...] 6.64) performed by Elkin Garcia MD at [facility] MAIN OR Social History and Habits: [...] amputation. Isra Rodriguez IV, DO Orthopaedic Surgery [facility] * Carlotta Davis MD - 05/10/2024 [...] oxygen, HFpEF, HTN, admitted to [facility] on 05/10/2024, now on Hospital Day #0, for RLE cellulitis SUBJECTIVE History of Present Illness: Per admitting provider Jossy Shanks is a 69 y.o. year old male with PMH significant for IDDM, Afib rate controlled, CKD (bsl cr 1.5), COPD not on home oxygen, HFpEF, HTN who presented to [facility] for rt LE cellulitis, transferred to [facility] for RLE cellulitis after trauma to his [...] knee. Fevers & chills for last 24hrs. [place] lightheaded, weak, & couldn't get out of [...] OSH departure. On arrival to [facility]: HR 96, o2 sat mid 90s on [...] limbs -chronic Motor Exam: Upper Limb Bilateral: Flight Attendant Strength 5/5 Wrist Flexion/Extension 5/5 Elbow Flexion/Extension [...] in the last 7068 hours. Invalid input(s): [id number] Recent Labs 05/10/24219 HA1C 5.9* Lipids: Heme: No results for input(s): LDH, HAPTOGLOBIN, URICACID in the last 168 hours. ABG (Arterial Blood Gas): No results found for: PHART, PO2ART, MCG3JOG, FRV9UPK VBG (Venous Blood Gas): No results for input(s): PHVEN, LKV6ZLQ, PO2VEN, JWC2IKK, BEVEN, VDM7KTD in the last 72hours. EKG: No results [...] 05/10/2024 2:37 AM) Result Value WORKSTATION ID [id number] Impression Bibasilar atelectasis. Thank you for letting us participate in the care of this patient. If you are a health care provider and have any questions regarding this report, please contact the number below. For patients who have questions please contact the health child care attendant that requested your imaging first. Foot wwo Contrast Right (Exam End: 05/10/2024 5:51 AM) Result Value WORKSTATION ID [id number] Impression 1. Soft tissue irregularity of the [...] have questions please contact the health child care attendant that requested your imaging first. Electronically signed by: Trinidad Mota MD, [facility] ([phone]), at 05/10/2024 12:56 PM Medications: Scheduled: [START [...] (Xarelto, dilt, coreg), admitted to [facility] on 05/10/2024, now on Hospital Day #0, [...] Internal Medicine PGY2 Medicine Team: Rigo, Pager #[phone] Associated attestation - Treva Diaz MD - [...] home oxygen, HFpEF, HTN who presented to [facility] for rt LE cellulitis, transferred to [facility] for septic shock. Reports end of March [...] knee. Fevers & chills for last 24hrs. [place] lightheaded, weak, & couldn't get out of [...] OSH departure. On arrival to [facility]: HR 96, o2 sat mid 90s on [...] mobilizes w/out assistance. Darion Morgan is DPOA; [phone] Physical Exam: Vitals: Last value Range last [...] Anita Camacho MD Internal Medicine, PGY2 05/10/2024 [facility] Pager #[phone] documented in this encounter Procedure Notes * Juan José Flowers MD - 05/21/2024 11:49 AM EDT IR PROCEDURE NOTE Procedure: Tunneled central venous catheter placement. Indication for Procedure: Per Allyn MIMS, Jossy Shanks is a 69 y.o. male with PMH of CKD, DM, COPD, A.fib, admitted for RLE cellulitis andosteomyelitis s/p 2ng toe amputation requiring care home [...] Patient is medically ready for [facility]. Needs for Transition of Care: Plan for discharge is: [facility] Facility / Swing OPAT Orders: ID Consult Ordered Agency Referrals & Follow-up Care: Contact information for follow-up [facility] [address] [place] [address] Transportation: family or friend will provide Wheelchair [...] MEDICARE Payor: AAR MANAGED MEDICARE / Plan: [facility] COMPLETE / Product Type: *No Product type* / Secondary Insurance: N/A Prescription Coverage: Yes This plan was formulated with input from patient and team. All are in agreement with plan. Shirley Samuel RN CM Paper Mill Manager- Medicine Office of Care Management Ext: [phone] Pager: [phone] * Plan of Care - Juan José [...] and were able to stop the bleeding. Nursing Agency Manager carolyn a hemoglobin when patient got [...] Operative Note Patient Name: Jossy Shanks : [id number] MR#: [id number] Case Date: 05/22/2024 Surgeon: Surgeons and Role: [...] Access Non-Dialysis 05/21/2024 Juan José Flowers MD [facility] INTERVENTIONL RAD PRO AMPUTATION METATARSAL+TOE, SINGLE Right 05/14/2024 AMPUTATION, TRANSMETATARSAL TOE, ONE TOE (WRVU 6.64) performed by Elkin Garcia MD at [facility] MAIN OR SOCIAL HX: Social History [...] IMAGING: Reports and images personally reviewed in [facility]. Images independently interpreted. IR Tunneled Central [...] signed by: Teofilo Ruiz MD, [facility] ([phone]), at 05/20/2024 11:30 AM Thank you for letting us participate in the care of this patient. If you are a health care provider and have any questions regarding this report, please contact the number above. For patients who have questions, please contact the health child care attendant that requested your imaging first. [...] have questions please contact the health child care attendant that requested your imaging first. Electronically signed by: Trinidad Mota MD, [facility] ([phone]), at 05/10/2024 12:56 PM XR Chest One View Final Result Bibasilar atelectasis. Thank you for letting us participate in the care of this patient. If you are a health care provider and have any questions regarding this report, please contact the number below. For patients who have questions please contact the health child care attendant that requested your imaging first. SCOPY: Reports [...] significant anemia. Tl Steele MD [facility] Gastroenterology * Plan of Care - Pretty [...] Pain Flowsheets (Taken 05/20/2024802) Pain Management Interventions: pantss-nin-qvowi dosing utilized breathing exercises care clustered diversional [...] MEDICARE Payor: AARP MANAGED MEDICARE / Plan: [employer] MANAGED MEDICARE COMPLETE / Product Type: *No Product type* / Secondary Insurance: N/A Last Physical Therapy Recommendation: swing bed rehabilitation facility, long-term facility with to be determined Last Occupational Therapy Recommendation: long-term facility, swing bed rehabilitation facility with to be determined Plan for discharge is: [facility] Facility / Swing Outpatient Agency/Support Group Needs: Homecare agency OPAT Orders: ID Consult Ordered Location: Home Home Health Services: IV Therapy Agency Referrals: Based on discussions with the multi-disciplinary healthcare team, the patient would benefit from SNF level of care at discharge. I have met with the patient to: discuss discharge planning needs. provide the [facility], Office of Care Management letter from the Transition Coach pertaining to rehab referrals. provide a letter describing our affiliations within the [facility] and educate about their right to choose where referrals are sent. provide the CMS Star Quality Rating handout. review the different levels of rehab including SNF, swing, and acute. provide a list of facilities within their preferred geographic area. request that they provide at least three choices for referral. They have requested referrals to: [facility] ([facility] [address] [place] [address] [facility] [address] [place] [address] -OFFERED BED, PENDING INSURANCE AUTHORIZATION 05/20 [address] [facility] [address] [place] [address] [facility] [address] [place] [address] [facility] ([facility]) [address] [place] [address] (Accepts pts only after exhausting all other local SNF options) Does patient have COVID vaccine card: Yes; Copy obtained: No Note routed to a Manager Global who will communicate referrals to facilities and provide any required information. Transportation: family or friend will provide Barriers to discharge: Discharge planning Plan going forward: Referrals routed for SNF/Swing. Care Management will continue to follow and assist with discharge planning and coordination of care as indicated. Anticipated Date of Discharge: 05/21/2024 Shirley Samuel RN CM Paper Mill Manager- Medicine Office of Care Management Ext: [phone] Pager: [phone] * Plan of Care - Pretty Ramirez [...] shock at his time of transfer to [facility]. Creatinine on admission was 3.94 mg/dL, [...] 6.64) performed by Elkin Garcia MD at [facility] MAIN OR insulin glargine-ygfn (Semglee) (100 [...] Flowsheets (Taken 05/18/2024 0838) Pain Management Interventions: rasmge-qps-owvoh dosing utilized care clustered diversional activity provided [...] television Taken 05/15/2024 1825 Pain Management Interventions: pvzahh-eim-mterf dosing utilized position adjusted pillow support provided [...] and Manage Fall Risk Flowsheets (Taken 05/16/2024 9303) Safety Promotion/Fall Prevention: activity supervised clutter free [...] smartphone Taken 05/15/2024 1825 Pain Management Interventions: zwnher-csd-vbmsd dosing utilized position adjusted pillow support provided [...] 6.64) performed by Elkin Garcia MD at [facility] MAIN OR Active Non-Hospital Problems Diagnosis [...] Perception: WNL / WFL and corrective lenses revenue agent Communication: WFL Range of motion, strength, coordination: [...] planning. Total Minutes, Occupational Therapy: 90 (evaluation ([phone])) 2017 OT Evaluation Code Rationale: Diagnosis & [...] and measurable assessment of functional outcome. Pager: [phone] Penny Rodriguez OT 05/16/2024 Occupational Therapy Rehabilitation [...] have. Alternately, during off-hours you may call [phone] to contact a pharmacist. * Consult Note [...] vasopressors, and then transferred to [facility] for further management. 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 05/14. Reports a hx of cellulitis in the Left leg back in 2009 for which he states he did a course of 6 week son IV abx from [facility]. Has gotten cellulitis about half a dozen times in total. Review of Systems: Pertinent positives and negatives noted in HPI. 14 point ROS otherwise negative except noted in HPI. Allergies/Adverse drug reactions: No Known Allergies Family History: Family History No data available Social History: Housing: lives in a camper in [facility] Occupation: Former [employer], retired in 2017 [...] Procedure Component Value - Date/Time Blood culture [[id number]] Collected: 05/10/24 0232 Lab Status: Final result Specimen: Blood from Hand, Right Updated: 05/15/24 0701 Blood Culture No growth at 5 days. Tissue culture [[id number]] (Abnormal) Collected: 05/14/24 1133 Lab Status: Preliminary result Specimen: Toe Updated: 05/14/24 1459 Gram Stain -- Few Neutrophils seen Rare Gram Positive Cocci in pairs seen Results called to and read back by Dr. Mihaela Galvan 05/14/24 14:57:00 Organism Gram Positive Cocci in pairs Skin/Superficial Wound Culture Toe [[id number]] (Abnormal) Collected: 05/10/24 0256 Lab Status: Final [...] follow. Please page ID Red team (pager [phone]) with questions or concerns. Emmanuel Corey, DO Internal Medicine PGY-2 Pager: [phone] Epic Chat 05/15/2024 Associated attestation - Rodriguez [...] MEDICARE Payor: AARP MANAGED MEDICARE / Plan: [employer]PO MANAGED MEDICARE COMPLETE / Product Type: *No Product type* / Secondary Insurance: N/A Last Physical Therapy Recommendation: with Last Occupational Therapy Recommendation: with Plan for discharge is: Home w/ Services Outpatient Agency/Support Group Needs: Homecare agency OPAT Orders: ID Consult Ordered Location: Home Home Health Services: IV Therapy Agency Referrals: [place] [address] or Home Care Orders: 1. 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 Surgical Infection Prevention Bundle Used? N/A Attestation: Case Date: 05/14/2024 I was present and I participated during the entire procedure (does not need to include opening and closing). Elkin Garcia MD 05/14/2024 * Consult Note - Hakeem Villa, [facility] - 05/14/2024 7:15 AM EDT [facility] Pharmacokinetics Note Drug: Vancomycin Pharmacokinetic target: AUC24 (range) 400-600 mg/L.hr Jossy Shanks is a 69-year-old male receiving intermittent Vancomycin doses Recent measured serum creatinine values: 05/14/2024 05:01 1.56 mg/dL 05/13/2024 05:29 1.53 mg/dL 05/12/2024 04:45 2.03 mg/dL Assessment: Analysis of the most recent level(s) using [employer] gives the following patient-specific pharmacokinetic parameters: CL: [...] (Xarelto, dilt, coreg), admitted to [facility] on 05/10/2024 with LE cellulitis 2/2 right foot trauma. Reason for intervention: Diet order question - what type of carb control diet does pt need? Nutrition Recommendations: Carb control level 3 diet Monitor po intake Monitor blood glucose levels Monitor weight trends I was able to discuss plan with provider Medicine Pager Red [phone] . Nutrition consult received regarding what type of carb control diet pt needs. Estimated nutrition needs based on ideal body weight of 89kg: Calories: 7695-5994 calories (20-25kcal/kg) Protein: 89-107g (1-1.2g/kg) Nutrition to [...] border dressing. (Melgisorb Ag 6x6 PS # [id number]) (Melgisorb Ag 4x4 PS # [id number]) Sacrum/ischium: open to air, utilize Z-guard if patient begins to have breakdown Supplies left at the bedside: 1 sheet of Melgisorb Ag, wound cleanser Wound Care will complete the consult at this time. If there are further issues please re-consult via eD-H. Discussed plan with: RN: Don Please contact Keeley Russell RN on eDH secure chat or the wound care team on pager [phone] with skin and wound care concerns or [...] receiving care in [place] must abide by [place] law. The hierarchy [...] (i) The agent with financial power of associate attorney or a conservator appointed in accordance [...] Current DME: none Home Address listed as: [address] [place] [id number] Pt is not currently residing here. Current address is as below: [facility] [address] [place], [place] [id number] Social & Family Supports: All names listed below confirmed with patient as current and correct Extended Emergency Contact Information Primary Emergency Contact: RimmaEddie Mobile Relation: Son/[id number]-[id number] Secondary Emergency Contact: Gifty [facility] Relation: Mother Current Care Provided by: self [...] Pertinent/Service Specific Information: Health/Prescription Coverage: Primary Insurance: [employer] OOS Payor: [employer] OOS / Plan: [facility] OOS PPO / Product Type: *No Product type* / Secondary Insurance: N/A ; Prescription Coverage: Yes Preferred Pharmacy: [id number] - [place], [place] - [address] [place] [address] AT [address] [facility] [address] [place] [phone] Primary Care Provider listed: None None Pt does have PCP in [facility] Patient/Caregiver Goals of Treatment: Potential Needs for Transition of Care: none, home health care Agency Referrals: I have met with the patient to: discuss discharge planning needs. provide the [facility], Office of Care Management letter from the Transition Coach pertaining to rehab referrals. provide a letter describing our affiliations within the [facility] and educate about their right to choose where referrals are sent. provide a list of Home Health Agencies / Durable Medical Equipment vendors which serve their preferred geographic area. provided patient with [facility] Star Quality Rating handout. They have requested referrals to: [facility] [address] [place] [address] Note routed to a Manager Global who will communicate referrals to facilities and [...] wait list for housing (an apartment) in [place], [place]; ETA for move-in is 4-8weeks. He does not feel that his local family members would be able to house him in the interim andexpresses that he is comfortable in his camper, which has amenities. He is fully independent at baseline but has used [facility] in the past; a referral will [...] Clinical Pharmacist Note - VancFD Jossy Shanks [id number] 1955 Jossy Shanks is a 69 y.o. [...] Alternately, during off-hours (9p-7a) you may call 6-2021 to contact a pharmacist. Rodriguez Sinclair RPH [...] intact shoulder abduction, elbow flexion/extension, wrist flexion/extension, pet technologist, EPL, AIN, IO Brisk capillary refill distally [...] intact shoulder abduction, elbow flexion/extension, wrist flexion/extension, pet technologist, EPL, AIN, IO Brisk capillary refill distally [...] changes develop in his course. Please page [phone] following completion of requestedimaging and studies. - [...] 10:30 AM EDT [place] [address] Elkin Garcia MD [facility] [place] [address] Scheduled Referrals Name Type Priority Associated Diagnoses [...] EDT Upper Gi Endoscopy, W/Dir Submuc Inj ([id number]) 05/22/2024 4:39 PM EDT ? melena Upper Gi Endoscopy, Ctrl Bleed ([id number]) 05/22/2024 4:39 PM EDT ? melena Upper GI Endoscopy, Diagnostic ([id number]) 05/22/2024 4:39 PM EDT ? melena UPPER [...] 05/14/2024 11:32 AM EDT Amputation Metatarsal+Toe, Single ([id number]) 05/14/2024 10:37 AM EDT right second toe [...] - 199 mg/dL 05/23/2024 12:32 PM EDT [facility] Comment:Supplemental ranges: <140 mg/dL before meals <180 mg/dL all other times of the day. Blood CAPILLARY BLOOD / Unknown 05/23/2024 12:32 PM EDT 05/23/2024 12:32 PM EDT Saba Spears MD POINT OF CARE TEST ORDERABLES [facility] [place] [address] * (ABNORMAL) Basic Metabolic Panel (05/23/2024 9:46 AM EDT) Glucose 142 65 - 199 mg/dL 05/23/2024 11:27 AM EDT [facility] Comment:Glucose Concentratio n >=200 mg/dL plus symptoms is consistent with Diabetes Mellitus. Blood Urea Nitrogen 83(H) 10 - 20 mg/dL 05/23/2024 11:27 AM [facility] Creatinine 2.64(H) 0.80 - 1.50 mg/dL 05/23/2024 11:27 AM [facility] Sodium 140 135 - 145 mMol/L 05/23/2024 11:27 AM [facility] Potassium 5.2(H) 3.5 - 5.0 mMol/L 05/23/2024 11:27 AM [facility] Chloride 111(H) 98 - 107 mMol/L 05/23/2024 11:27 AM [facility] Carbon Dioxide 20(L) 22 - 31 mMol/L 05/23/2024 11:27 AM [facility] Anion Gap 9 5 - 15 mMol/L 05/23/2024 11:27 AM [facility] Calcium 9.3 8.5 - 10.5 mg/dL 05/23/2024 11:27 AM [facility] Est Glomerular Filtration Rate - Male 25 mL/min/1. 73 m?? 05/23/2024 11:27 AM [facility] Comment: This patient's estimated [...] EDT Saba Spears MD CHEMISTRY ORDERABLE S [facility] [place] [address] * (ABNORMAL) CBC (with Diff) (05/23/2024 9:46 AM EDT) White Blood Cell 12.66(H) 4.00 - 9.50 x10(3)/mc L 05/23/2024 10:52 AM EDT [facility] Red Blood Cell 2.56(L) 4.58 - 5.54 x10(6)/mc L 05/23/2024 10:52 AM EDT [facility] Hemoglobin 7.7(L) 13.7 - 16.5 g/dL 05/23/2024 10:52 AM [facility] Hematocrit 24.3(L) 40.5 - 48.5 % 05/23/2024 10:52 AM EDT [facility] Mean Cell Volume 94.9(H) 82.9 - 93.1 fL 05/23/2024 10:52 AM [facility] Mean Cell Hemoglobin 30.1 27.5 - 32.1 pg 05/23/2024 10:52 AM [facility] Mean Cell Hemoglobin Concentration 31.7(L) 32.0 - 35.7 g/dL 05/23/2024 10:52 AM EDT [facility] Platelet 370(H) 145 - 357 x10(3)/mc L 05/23/2024 10:52 AM [facility] Mean Platelet Volume 11.6 7.6 - 12.9 fL 05/23/2024 10:[facility] Standard Deviation 57.1(H) 36.0 - 45.0 fL 05/23/2024 10:52 AM [facility] RDW coefficient of variation 16.9(H) 11.4 - 13.8 % 05/23/2024 10:52 AM [facility] NRBC% auto 0.0 % 05/23/2024 10:52 AM [facility] NRBC Absolute 0.00 0.00 - 0.00 x10(3)/mc L 05/23/2024 10:52 AM [facility] Neutrophil % 81.6 % 05/23/2024 10:52 AM [facility] Neutrophil Absolute 10.34(H) 1.70 - 6.10 x10(3)/mc L 05/23/2024 10:52 AM [facility] Lymph % 5.1 % 05/23/2024 10:52 AM [facility] Lymph Absolute 0.64(L) 0.90 - 3.20 x10(3)/mc L 05/23/2024 10:52 AM [facility] Monocyte % 10.7 % 05/23/2024 10:52 AM [facility] Monocyte Absolute 1.35(H) 0.30 - 0.90 x10(3)/mc L 05/23/2024 10:52 AM [facility] Eos % 1.7 % 05/23/2024 10:52 AM [facility] Eos Absolute 0.22 0.00 - 0.40 x10(3)/mc L 05/23/2024 10:52 AM [facility] Basophil % 0.3 % 05/23/2024 10:52 AM [facility] Baso Absolute 0.04 0.00 - 0.10 x10(3)/mc L 05/23/2024 10:52 AM [facility] Immature Gran % 0.6 % 10:52 AM [facility] Immature Gran Absolute 0.07(H) 0.00 - 0.04 x10(3)/mc L 05/23/2024 10:52 AM [facility] Blood VENOUS BLOOD SPECIMEN / Unknown IP Care Team Draw / Unknown 05/23/2024 9:46 AM EDT 05/23/2024 10:01 AM EDT Saba Spears MD HEMATOLOGY ORDERABL ES Performing Organization Address [facility] Co de Phone Number [facility] [place] [phone] * POC, GLUCOSE (05/23/2024 7:44 AM EDT) Glucometer, POC 127 65 - 199 mg/dL 05/23/2024 7:44 AM EDT [facility] Comment:Supplemental ranges: <140 mg/dL before meals <180 mg/dL all other times of the day. Blood CAPILLARY BLOOD / Unknown 05/23/2024 7:44 AM EDT 05/23/2024 7:45 AM EDT Saba Spears MD POINT OF CARE TEST ORDERABLES Performing Organization Address [facility] Co de Phone Number [facility] [place] [address] * Prepare RBC (05/23/2024 3:49 AM EDT) Status Information Transfused [facility] Product Identification RBC [facility] Unit Number [id number] [facility] Product Code [id number] [facility] Unit Blood Type OPOS [facility] Specimen Expiration Date [id number] [facility] Volulme 350 [facility] Issue Date / Time [id number] [facility] Blood 05/22/2024 12: 42 PM EDT Saba Spears MD BLOOD BANK PRODUCT ORDERABLES Performing Organization Address City/[facility] Co de Phone Number [facility] [place] [address] * POC, GLUCOSE (05/23/2024 3:49 AM EDT) Glucometer, POC 152 65 - 199 mg/dL 05/23/2024 3:49 AM EDT [facility] Comment:Supplemental ranges: <140 mg/dL before meals <180 mg/dL all other times of the day. Blood CAPILLARY BLOOD / Unknown 05/23/2024 3:49 AM EDT 05/23/2024 3:49 AM EDT Saba Spears MD POINT OF CARE TEST ORDERABLES Performing Organization Address City/[facility] Co de Phone Number [facility] [place] [address] * POC, GLUCOSE (05/23/2024 1:26 AM EDT) Glucometer, POC 138 65 - 199 mg/dL 05/23/2024 1:26 AM EDT [facility] Comment:Supplemental ranges: <140 mg/dL before meals <180 mg/dL all other times of the day. Blood CAPILLARY BLOOD / Unknown 05/23/2024 1:26 AM EDT 05/23/2024 1:26 AM EDT Saba Spears MD POINT OF CARE TEST ORDERABLES Performing Organization Address City/[facility] Co de Phone Number [facility] [place] [address] * (ABNORMAL) Scan, Peripheral Blood (05/23/2024 1:19 AM EDT) RBC Morphology Abnormal 05/23/2024 3:44 AM EDT [facility] Platelet Estimate Increased(A) Normal 05/23/2024 3:44 AM EDT [facility] Ovalocytes 1-5 /HPF 05/23/2024 3:44 AM EDT [facility] [place] cells 1-5 /HPF 05/23/2024 3:44 AM EDT [facility] Blood VENOUS BLOOD SPECIMEN / Unknown IP Care Team Draw / Unknown 05/23/2024 1:19 AM EDT 05/23/2024 2:05 AM EDT Mary De La Fuente MD HEMATOLOGY ORDERAB LES Performing Organization Address [facility]/ZIP Co de Phone Number [facility] [place] [address] * Magnesium (05/23/2024 1:19 AM EDT) Magnesium 0.86 0.69 - 1.07 mMol/L 05/23/2024 2:40 AM EDT [facility] Blood VENOUS BLOOD SPECIMEN / Unknown IP Care Team Draw / Unknown 05/23/2024 1:19 AM EDT 05/23/2024 2:05 AM EDT Mary De La Fuente MD CHEMISTRY ORDERABL ES Performing Organization Address [facility] Co de Phone Number [facility] [place] [address] * (ABNORMAL) Phosphorus (05/23/2024 1:19 AM EDT) Phosphorus 5.8(H) 2.5 - 4.5 mg/dL 05/23/2024 2:40 AM EDT [facility] Blood VENOUS BLOOD SPECIMEN / Unknown IP Care Team Draw / Unknown 05/23/2024 1:19 AM EDT 05/23/2024 2:05 AM EDT Mary De La Fuente MD CHEMISTRY ORDERABL ES Performing Organization Address [facility]/ZIP Co de Phone Number [facility] [place] [address] * (ABNORMAL) Basic Metabolic Panel (non-fasting) (05/23/2024 1:19 AM EDT) Glucose 158 65 - 199 mg/dL 05/23/2024 3:34 AM EDT [facility] Comment:Glucose Concentratio n >=200 mg/dL plus symptoms is consistent with Diabetes Mellitus. Blood Urea Nitrogen 85(H) 10 - 20 mg/dL 05/23/2024 3:34 AM EDT [facility] Creatinine 2.70(H) 0.80 - 1.50 mg/dL 05/23/2024 3:34 AM EDT [facility] Sodium 139 135 - 145 mMol/L 05/23/2024 3:34 AM [facility] Potassium 4.9 3.5 - 5.0 mMol/L 05/23/2024 3:34 AM [facility] Chloride 108(H) 98 - 107 mMol/L 05/23/2024 3:34 AM [facility] Carbon Dioxide 20(L) 22 - 31 mMol/L 05/23/2024 [facility] Anion Gap 11 5 - 15 mMol/L 05/23/2024 3:34 AM [facility] Calcium 9.1 8.5 - 10.5 mg/dL 05/23/2024 3:34 AM [facility] Est Glomerular Filtration Rate - Male 25 mL/min/1. 73 m?? 05/23/2024 3:34 AM [facility] Comment: This patient's estimated [...] Foundation Fasting Status 05/23/2024 3:34 AM T [facility] Blood VENOUS BLOOD SPECIMEN / Unknown IP Care Team Draw / Unknown 05/23/2024 1:19 AM EDT 05/23/2024 2:05 AM EDT Mary De La Fuente MD CHEMISTRY ORDERABL ES [facility] [place] [address] * (ABNORMAL) CBC (with Diff) (05/23/2024 1:19 AM EDT) White Blood Cell 12.66(H) 4.00 - 9.50 x10(3)/mc L 05/23/2024 3:44 AM [facility] Red Blood Cell 2.61(L) 4.58 - 5.54 x10(6)/mc L 05/23/2024 3:44 AM [facility] Hemoglobin 7.8(L) 13.7 - 16.5 g/dL 05/23/2024 3:44 AM [facility] Hematocrit 24.3(L) 40.5 - 48.5 % 05/23/2024 3:44 AM [facility] Mean Cell Volume 93.1 82.9 - 93.1 fL 05/23/2024 3:44 AM [facility] Mean Cell Hemoglobin 29.9 27.5 - 32.1 pg 05/23/2024 3:44 AM [facility] Mean Cell Hemoglobin Concentration 32.1 32.0 - 35.7 g/dL 05/23/2024 3:44 AM [facility] Platelet 381(H) 145 - 357 x10(3)/mc L 05/23/2024 3:44 AM [facility] Mean Platelet Volume 11.4 7.6 - 12.9 fL 05/23/2024 3:44 AM [facility] RDW Standard Deviation 55.1(H) 36.0 - 45.0 fL 05/23/2024 3:44 AM [facility] RDW coefficient of variation 16.5(H) 11.4 - 13.8 % 05/23/2024 3:44 AM [facility] NRBC% auto 0.0 % 05/23/2024 3:44 AM [facility] NRBC Absolute 0.00 0.00 - 0.00 x10(3)/mc L 05/23/2024 3:44 AM [facility] Neutrophil % 79.4 % 05/23/2024 3:44 AM [facility] Comment:This is an appended report. These results have been appended to a previously preliminary verified report. Neutrophil Absolute 10.06(H) 1.70 - 6.10 x10(3)/mc L 05/23/2024 3:44 AM [facility] Comment:This is an appended report. These results have been appended to a previously preliminary verified report. Lymph % 5.8 % 05/23/2024 3:44 AM [facility] Comment:This is an appended report. These results have been appended to a previously preliminary verified report. Lymph Absolute 0.73(L) 0.90 - 3.20 x10(3)/mc L 05/23/2024 3:44 AM [facility] Comment:This is an appended report. These results have been appended to a previously preliminary verified report. Monocyte % 12.1 % 05/23/2024 3:44 AM [facility] Comment:This is an appended report. These results have been appended to a previously preliminary verified report. Monocyte Absolute 1.53(H) 0.30 - 0.90 x10(3)/mc L 05/23/2024 3:44 AM [facility] Comment:This is an appended report. These results have been appended to a previously preliminary verified report. Eos % 1.9 % 05/23/2024 3:44 AM [facility] Comment:This is an appended report. These results have been appended to a previously preliminary verified report. Eos Absolute 0.24 0.00 - 0.40 x10(3)/mc L 05/23/2024 3:44 AM [facility] Comment:This is an appended report. These results have been appended to a previously preliminary verified report. Basophil % 0.3 % 05/23/2024 3:44 AM [facility] Comment:This is an appended report. These results have been appended to a previously preliminary verified report. Baso Absolute 0.04 0.00 - 0.10 x10(3)/mc L 05/23/2024 3:44 AM EDT [facility] Comment:This is an appended report. These results have been appended to a previously preliminary verified report. Immature Gran % 0.5 % 3:44 AM EDT [facility] Comment:This is an appended report. These results have been appended to a previously preliminary verified report. Immature Gran Absolute 0.06(H) 0.00 - 0.04 x10(3)/mc L 05/23/2024 3:44 AM EDT [facility] Comment:This is an appended report. These results have been appended to a previously preliminary verified report. Blood VENOUS BLOOD SPECIMEN / Unknown IP Care Team Draw / Unknown 05/23/2024 1:19 AM EDT 05/23/2024 2:05 AM EDT Mary De La Fuente MD HEMATOLOGY ORDERAB LES Performing Organization Address City/[facility]/ZIP Co de Phone Number [facility] [place] [address] * POC, GLUCOSE (05/22/2024 8:21 PM EDT) Glucometer, POC 152 65 - 199 mg/dL 05/22/2024 8:21 PM EDT [facility] Comment:Supplemental ranges: <140 mg/dL before meals <180 mg/dL all other times of the day. Blood CAPILLARY BLOOD / Unknown 05/22/2024 8:21 PM EDT 05/22/2024 8:21 PM EDT Saba Spears MD POINT OF CARE TEST ORDERABLES Performing Organization Address City/[facility]/ZIP Co de Phone Number [facility] [place] [address] * POC, GLUCOSE (05/22/2024 6:20 PM EDT) Glucometer, POC 130 65 - 199 mg/dL 05/22/2024 6:20 PM EDT [facility] Comment:Supplemental ranges: <140 mg/dL before meals <180 mg/dL all other times of the day. Blood CAPILLARY BLOOD / Unknown 05/22/2024 6:20 PM EDT 05/22/2024 6:21 PM EDT Saba Spears MD POINT OF CARE TEST ORDERABLES [facility] [place] [address] * Transfuse RBC (05/22/2024 2:45 PM EDT) Saba Spears MD NURSING TREATMENT O RDERABLES - BLOOD ADMIN * UPPER GI ENDOSCOPY (05/22/2024 12:48 PM EDT) [facility] UPPER GI ENDOSCOPY [facility] Endoscopy ___ Procedure Date: 05/22/2024 12:48 PM ? Patient Name: Jossy Shanks ? N: [id number] ? Date of : 1955 ? Age: 69 ? Order #: [id number] ? Instrument Name: [id number] ? ___ Procedure: ? Upper GI endoscopy [...] Progress Complete 05/22/2024 1:[address] [facility] Blood VENOUS BLOOD SPECIMEN / Unknown IP Care Team Draw / Unknown 05/22/2024 11:18 AM EDT 05/22/2024 11:27 AM EDT Saba Spears MD BLOOD BANK LAB FADY GAO [facility] [place] [address] * Type and screen ([facility]CGP/TARA) (05/22/2024 11:18 AM EDT) ABORH Type O POSITIVE 05/22/2024 12:[address] [facility] PATIENT HISTORY Found 05/22/2024 12:[address] [facility] Expires at [id number] on: 05-22-2024 05/22/2024 12:[address] [facility] ANTIBODY SCREEN AUTOMATED Negative 05/22/2024 12:[address] [facility] T&S only valid at [facility] 05/22/2024 12:[address] [facility] Blood VENOUS BLOOD SPECIMEN / Unknown IP Care Team Draw / Unknown 05/22/2024 11:18 AM EDT 05/22/2024 11:[address] [facility] - 05/22/2024 12:31 PM EDT This Type and Screen result is only valid at the [facility] Saba Spears MD BLOOD BANK LAB ORDE RABLES [facility] [place] [address] * (ABNORMAL) Hemoglobin and Hematocrit, blood (05/22/2024 11:18 AM EDT) Hemoglobin 6.9(L) 13.7 - 16.5 g/dL 05/22/2024 12:02 PM EDT [facility] Hematocrit 21.4(L) 40.5 - 48.5 % 05/22/2024 12:02 PM EDT [facility] Blood VENOUS BLOOD SPECIMEN / Unknown IP Care Team Draw / Unknown 05/22/2024 11:18 AM EDT 05/22/2024 11:36 AM EDT Saba Spears MD HEMATOLOGY ORDERABL ES [facility] [place] [address] * POC, GLUCOSE (05/22/2024 11:14 AM EDT) Glucometer, POC 126 65 - 199 mg/dL 05/22/2024 11:17 AM EDT [facility] Comment:Supplemental ranges: <140 mg/dL before meals <180 mg/dL all other times of the day. Blood CAPILLARY BLOOD / Unknown 05/22/2024 11:14 AM EDT 05/22/2024 11:18 AM EDT Saba Spears MD POINT OF CARE TEST ORDERABLES Performing Organization Address City/[facility]/ZIP Co de Phone Number [facility] [place] [address] * POC, GLUCOSE (05/22/2024 8:07 AM EDT) Glucometer, POC 132 65 - 199 mg/dL 05/22/2024 8:08 AM EDT [facility] Comment:Supplemental ranges: <140 mg/dL before meals <180 mg/dL all other times of the day. Blood CAPILLARY BLOOD / Unknown 05/22/2024 8:07 AM EDT 05/22/2024 8:08 AM EDT Saba Spears MD POINT OF CARE TEST ORDERABLES [facility] [place] [address] * (ABNORMAL) Hepatic Function Panel (05/22/2024 5:18 AM EDT) Albumin 2.6(L) 3.2 - 5.2 g/dL 05/22/2024 9:50 AM EDT [facility] Aspartate Aminotransferase 18 <=39 unit/L 05/22/2024 9:50 AM EDT [facility] Alanine Aminotransferase 42 0 - 55 unit/L 05/22/2024 9:50 AM EDT [facility] Alkaline Phosphatase 84 40 - 130 unit/L 05/22/2024 9:50 AM EDT [facility] Bilirubin, Total <0.2 <=1.3 mg/dL 05/22/2024 9:50 AM EDT [facility] Bilirubin, Direct <0.2 0.0 - 0.3 mg/dL 05/22/2024 9:50 AM EDT [facility] Protein, Total 6.0(L) 6.1 - 8.0 g/dL 05/22/2024 9:50 AM EDT [facility] Blood VENOUS BLOOD SPECIMEN / Unknown IP Care Team Draw / Unknown 05/22/2024 5:18 AM EDT 05/22/2024 5:45 AM EDT Saba Spears MD CHEMISTRY ORDERABLE S Performing Organization Address City/[facility]/ZIP Co de Phone Number [facility] [place] [address] * Magnesium (05/22/2024 5:18 AM EDT) Magnesium 0.93 0.69 - 1.07 mMol/L 05/22/2024 6:16 AM EDT [facility] Blood VENOUS BLOOD SPECIMEN / Unknown IP Care Team Draw / Unknown 05/22/2024 5:18 AM EDT 05/22/2024 5:45 AM EDT Mary De La Fuente MD CHEMISTRY ORDERABL ES [facility] [place] [address] * (ABNORMAL) Phosphorus (05/22/2024 5:18 AM EDT) Phosphorus 5.8(H) 2.5 - 4.5 mg/dL 05/22/2024 6:16 AM EDT [facility] Blood VENOUS BLOOD SPECIMEN / Unknown IP Care Team Draw / Unknown 05/22/2024 5:18 AM EDT 05/22/2024 5:45 AM EDT Mary De La Fuente MD CHEMISTRY ORDERABL ES [facility] [place] [address] * (ABNORMAL) Basic Metabolic Panel (05/22/2024 5:18 AM EDT) Glucose 121 65 - 199 mg/dL 05/22/2024 6:16 AM EDT [facility] Comment:Glucose Concentratio n >=200 mg/dL plus symptoms is consistent with Diabetes Mellitus. Blood Urea Nitrogen 97(H) 10 - 20 mg/dL 05/22/2024 6:16 AM [facility] Creatinine 2.77(H) 0.80 - 1.50 mg/dL 05/22/2024 6:16 AM [facility] Sodium 138 135 - 145 mMol/L 05/22/2024 6:16 AM [facility] Potassium 5.1(H) 3.5 - 5.0 mMol/L 05/22/2024 6:16 AM [facility] Chloride 110(H) 98 - 107 mMol/L 05/22/2024 6:16 AM [facility] Carbon Dioxide 20(L) 22 - 31 mMol/L 05/22/2024 6:16 AM [facility] Anion Gap 8 5 - 15 mMol/L 05/22/2024 6:16 AM [facility] Calcium 9.4 8.5 - 10.5 mg/dL 05/22/2024 6:16 AM [facility] Est Glomerular Filtration Rate - Male 24 mL/min/1. 73 m?? 05/22/2024 6:16 AM [facility] Comment: This patient's estimated [...] Fasting Status No 05/22/2024 6:16 AM EDT [facility] Blood VENOUS BLOOD SPECIMEN / Unknown IP Care Team Draw / Unknown 05/22/2024 5:18 AM EDT 05/22/2024 5:45 AM EDT Mary De La Fuente MD CHEMISTRY ORDERABL ES [facility] [place] [address] * (ABNORMAL) CBC (with Diff) (05/22/2024 5:18 AM EDT) White Blood Cell 14.70(H) 4.00 - 9.50 x10(3)/mc L 05/22/2024 5:52 AM [facility] Red Blood Cell 2.37(L) 4.58 - 5.54 x10(6)/mc L 05/22/2024 5:52 AM [facility] Hemoglobin 7.2(L) 13.7 - 16.5 g/dL 05/22/2024 5:52 AM [facility] Hematocrit 22.1(L) 40.5 - 48.5 % 05/22/2024 5:52 AM [facility] Mean Cell Volume 93.2(H) 82.9 - 93.1 fL 05/22/2024 5:52 AM [facility] Mean Cell Hemoglobin 30.4 27.5 - 32.1 pg 05/22/2024 5:52 AM [facility] Mean Cell Hemoglobin Concentration 32.6 32.0 - 35.7 g/dL 05/22/2024 5:52 AM [facility] Platelet 366(H) 145 - 357 x10(3)/mc L 05/22/2024 5:52 AM [facility] Mean Platelet Volume 10.9 7.6 - 12.9 fL 05/22/2024 5:52 AM [facility] RDW Standard Deviation 54.6(H) 36.0 - 45.0 fL 05/22/2024 5:52 AM [facility] RDW coefficient of variation 16.3(H) 11.4 - 13.8 % 05/22/2024 5:52 AM [facility] NRBC% auto 0.0 % 05/22/2024 5:52 AM [facility] NRBC Absolute 0.00 0.00 - 0.00 x10(3)/mc L 05/22/2024 5:52 AM [facility] Neutrophil % 83.2 % 05/22/2024 5:52 AM [facility] Neutrophil Absolute 12.22(H) 1.70 - 6.10 x10(3)/mc L 05/22/2024 5:52 AM [facility] Lymph % 4.4 % 05/22/2024 5:52 AM [facility] Lymph Absolute 0.65(L) 0.90 - 3.20 x10(3)/mc L 05/22/2024 5:52 AM [facility] Monocyte % 9.7 % 05/22/2024 5:52 AM [facility] Monocyte Absolute 1.43(H) 0.30 - 0.90 x10(3)/mc L 05/22/2024 5:52 AM [facility] Eos % 1.9 % 05/22/2024 5:52 AM [facility] Eos Absolute 0.28 0.00 - 0.40 x10(3)/mc L 05/22/2024 5:52 AM [facility] Basophil % 0.2 % 05/22/2024 5:52 AM EDT [facility] Baso Absolute 0.03 0.00 - 0.10 x10(3)/mc L 05/22/2024 5:52 AM EDT [facility] Immature Gran % 0.6 % 5:52 AM EDT [facility] Immature Gran Absolute 0.09(H) 0.00 - 0.04 x10(3)/mc L 05/22/2024 5:52 AM EDT [facility] Blood VENOUS BLOOD SPECIMEN / Unknown IP Care Team Draw / Unknown 05/22/2024 5:18 AM EDT 05/22/2024 5:45 AM EDT Mary De La Fuente MD HEMATOLOGY ORDERAB LES Performing Organization Address City/[facility]/ZIP Co de Phone Number [facility] [place] [address] * POC, GLUCOSE (05/22/2024 3:50 AM EDT) Glucometer, POC 140 65 - 199 mg/dL 05/22/2024 3:50 AM EDT [facility] Comment:Supplemental ranges: <140 mg/dL before meals <180 mg/dL all other times of the day. Blood CAPILLARY BLOOD / Unknown 05/22/2024 3:50 AM EDT 05/22/2024 3:50 AM EDT Saba Spears MD POINT OF CARE TEST ORDERABLES Performing Organization Address City/[facility]/ZIP Co de Phone Number [facility] [place] [address] * Scan Doc: Lab (05/22/2024 12:00 AM EDT) Narrative 05/22/2024 12:00 AM EDT Ordered by an unspecified provider. Scanning Provider MEDIA MGR SCAN EXT O RDR/RSLT * POC, GLUCOSE (05/21/2024 11:28 PM EDT) Glucometer, POC 174 65 - 199 mg/dL 05/21/2024 11:28 PM EDT [facility] Comment:Supplemental ranges: <140 mg/dL before meals <180 mg/dL all other times of the day. Blood CAPILLARY BLOOD / Unknown 05/21/2024 11:28 PM EDT 05/21/2024 11:28 PM EDT Saba Spears MD POINT OF CARE TEST ORDERABLES Performing Organization Address City/[facility] Co de Phone Number [facility] [place] [address] * POC, GLUCOSE (05/21/2024 7:49 PM EDT) Glucometer, POC 161 65 - 199 mg/dL 05/21/2024 7:49 PM EDT [facility] Comment:Supplemental ranges: <140 mg/dL before meals <180 mg/dL all other times of the day. Blood CAPILLARY BLOOD / Unknown 05/21/2024 7:49 PM EDT 05/21/2024 7:49 PM EDT Saba Spears MD POINT OF CARE TEST ORDERABLES Performing Organization Address [facility] Co de Phone Number [facility] [place] [address] * POC, GLUCOSE (05/21/2024 5:18 PM EDT) Glucometer, POC 152 65 - 199 mg/dL 05/21/2024 5:18 PM EDT [facility] Comment:Supplemental ranges: <140 mg/dL before meals <180 mg/dL all other times of the day. Blood CAPILLARY BLOOD / Unknown 05/21/2024 5:18 PM EDT 05/21/2024 5:18 PM EDT Saba Spears MD POINT OF CARE TEST ORDERABLES Performing Organization Address City/[facility]/ZIP Co de Phone Number [facility] [place] [address] * (ABNORMAL) Hemogram (05/21/2024 3:00 PM EDT) White Blood Cell 14.25(H) 4.00 - 9.50 x10(3)/mc L 05/21/2024 3:41 PM EDT [facility] Red Blood Cell 2.61(L) 4.58 - 5.54 x10(6)/mc L 05/21/2024 3:41 PM EDT [facility] Hemoglobin 7.8(L) 13.7 - 16.5 g/dL 05/21/2024 3:41 PM [facility] Hematocrit 24.5(L) 40.5 - 48.5 % 05/21/2024 3:41 PM [facility] Mean Cell Volume 93.9(H) 82.9 - 93.1 fL 05/21/2024 3:41 PM [facility] Mean Cell Hemoglobin 29.9 27.5 - 32.1 pg 05/21/2024 3:41 PM [facility] Mean Cell Hemoglobin Concentration 31.8(L) 32.0 - 35.7 g/dL 05/21/2024 3:41 PM [facility] Platelet 456(H) 145 - 357 x10(3)/mc L 05/21/2024 3:41 PM [facility] Mean Platelet Volume 11.1 7.6 - 12.9 fL 05/21/2024 3:41 PM [facility] RDW Standard Deviation 55.2(H) 36.0 - 45.0 fL 05/21/2024 3:41 PM [facility] RDW coefficient of variation 16.1(H) 11.4 - 13.8 % 05/21/2024 3:41 PM [facility] NRBC% auto 0.0 % 05/21/2024 3:41 PM [facility] NRBC Absolute 0.00 0.00 - 0.00 x10(3)/mc L 05/21/2024 3:41 PM EDT [facility] Blood VENOUS BLOOD SPECIMEN / Unknown IP Care Team Draw / Unknown 05/21/2024 3:00 PM EDT 05/21/2024 3:36 PM EDT Saba Spears MD HEMATOLOGY ORDERABL ES Performing Organization Address [facility] Co de Phone Number [facility] [place] [address] * POC, GLUCOSE (05/21/2024 12:39 PM EDT) [facility] Glucometer, POC 144 65 - 199 mg/dL 05/21/2024 12:39 PM EDT [facility] Comment:Supplemental ranges: <140 mg/dL before meals <180 mg/dL all other times of the day. Blood CAPILLARY BLOOD / Unknown 05/21/2024 12:39 PM EDT 05/21/2024 12:39 PM EDT Saba Spears MD POINT OF CARE TEST ORDERABLES Performing Organization Address [facility] Co de Phone Number [facility] [place] [address] * IR Tunneled Central Venous Access Non-Dialysis [...] and osteomyelitis s/p 2ng toe amputation requiring oysterman IV antibiotic administration who presents to Interventional [...] guidance and a 4Fr sheath placed. ??[address] injection compatible single lumen catheter was [...] * POC, GLUCOSE (05/21/2024 9:12 AM EDT) [facility] Glucometer, POC 144 65 - 199 mg/dL 05/21/2024 9:12 AM EDT [facility] Comment:Supplemental ranges: <140 mg/dL before meals <180 mg/dL all other times of the day. Blood CAPILLARY BLOOD / Unknown 05/21/2024 9:12 AM EDT 05/21/2024 9:12 AM EDT Saba Spears MD POINT OF CARE TEST ORDERABLES [facility] [place] [address] * POC, GLUCOSE (05/21/2024 8:32 AM EDT) Glucometer, POC 135 65 - 199 mg/dL 05/21/2024 8:32 AM EDT [facility] Comment:Supplemental ranges: <140 mg/dL before meals <180 mg/dL all other times of the day. Blood CAPILLARY BLOOD / Unknown 05/21/2024 8:32 AM EDT 05/21/2024 8:32 AM EDT Saba Spears MD POINT OF CARE TEST ORDERABLES Performing Organization Address City/[facility]/ZIP Co de Phone Number [facility] [place] [address] * (ABNORMAL) Hemogram (05/21/2024 8:27 AM EDT) White Blood Cell 15.77(H) 4.00 - 9.50 x10(3)/mc L 05/21/2024 8:54 AM EDT [facility] Red Blood Cell 2.47(L) 4.58 - 5.54 x10(6)/mc L 05/21/2024 8:54 AM EDT [facility] Hemoglobin 7.5(L) 13.7 - 16.5 g/dL 05/21/2024 8:54 AM EDT [facility] Hematocrit 23.0(L) 40.5 - 48.5 % 05/21/2024 8:54 AM EDT [facility] Mean Cell Volume 93.1 82.9 - 93.1 fL 05/21/2024 8:54 AM EDT [facility] Mean Cell Hemoglobin 30.4 27.5 - 32.1 pg 05/21/2024 8:54 AM EDT [facility] Mean Cell Hemoglobin Concentration 32.6 32.0 - 35.7 g/dL 05/21/2024 8:54 AM EDT [facility] Platelet 398(H) 145 - 357 x10(3)/mc L 05/21/2024 8:54 AM EDT [facility] Mean Platelet Volume 10.8 7.6 - 12.9 fL 05/21/2024 8:54 AM EDT [facility] RDW Standard Deviation 54.6(H) 36.0 - 45.0 fL 05/21/2024 8:54 AM EDT [facility] RDW coefficient of variation 16.1(H) 11.4 - 13.8 % 05/21/2024 8:54 AM EDT [facility] NRBC% auto 0.0 % 05/21/2024 8:54 AM EDT [facility] NRBC Absolute 0.00 0.00 - 0.00 x10(3)/mc L 05/21/2024 8:54 AM EDT [facility] Blood VENOUS BLOOD SPECIMEN / Unknown IP Care Team Draw / Unknown 05/21/2024 8:27 AM EDT 05/21/2024 8:42 AM EDT Saba Spears MD HEMATOLOGY ORDERABL ES [facility] [place] [address] * (ABNORMAL) CRP, acute inflammation (05/21/2024 4:58 AM EDT) C-Reactive Protein 14.1(H) <=4.9 mg/L 05/21/2024 10:05 AM EDT [facility] Blood VENOUS BLOOD SPECIMEN / Unknown IP Care Team Draw / Unknown 05/21/2024 4:58 AM EDT 05/21/2024 5:17 AM EDT Saba Spears MD CHEMISTRY ORDERABLE S Performing Organization Address [facility]/ZIP Co de Phone Number [facility] [place] [address] * Magnesium (05/21/2024 4:58 AM EDT) Magnesium 0.99 0.69 - 1.07 mMol/L 05/21/2024 5:51 AM EDT [facility] Blood VENOUS BLOOD SPECIMEN / Unknown IP Care Team Draw / Unknown 05/21/2024 4:58 AM EDT 05/21/2024 5:17 AM EDT Mary De La Fuente MD CHEMISTRY ORDERABL ES Performing Organization Address [facility] Co de Phone Number [facility] [place] [address] * (ABNORMAL) Phosphorus (05/21/2024 4:58 AM EDT) Phosphorus 6.2(H) 2.5 - 4.5 mg/dL 05/21/2024 5:51 AM EDT [facility] Blood VENOUS BLOOD SPECIMEN / Unknown IP Care Team Draw / Unknown 05/21/2024 4:58 AM EDT 05/21/2024 5:17 AM EDT Mary De La Fuente MD CHEMISTRY ORDERABL ES Performing Organization Address [facility]/ZIP Co de Phone Number [facility] [place] [address] * (ABNORMAL) Basic Metabolic Panel (05/21/2024 4:58 AM EDT) Glucose 151 65 - 199 mg/dL 05/21/2024 5:51 AM EDT [facility] Comment:Glucose Concentratio n >=200 mg/dL plus symptoms is consistent with Diabetes Mellitus. Blood Urea Nitrogen 110(H) 10 - 20 mg/dL 05/21/2024 5:51 AM EDT [facility] Creatinine 3.04(H) 0.80 - 1.50 mg/dL 05/21/2024 5:51 AM EDT [facility] Sodium 138 135 - 145 mMol/L 05/21/2024 [facility] Potassium 5.1(H) 3.5 - 5.0 mMol/L 05/21/2024 5:51 AM [facility] Chloride 111(H) 98 - 107 mMol/L 05/21/2024 5:[facility] Carbon Dioxide 18(L) 22 - 31 mMol/L 05/21/2024 5:51 [facility] Anion Gap 9 5 - 15 mMol/L 05/21/2024 5:51 AM [facility] Calcium 9.4 8.5 - 10.5 mg/dL 05/21/2024 5:51 AM [facility] Est Glomerular Filtration Rate - Male 21 mL/min/1. 73 m?? 05/21/2024 5:51 AM [facility] Comment: This patient's estimated [...] Fasting Status No 05/21/2024 5:51 AM T [facility] Blood VENOUS BLOOD SPECIMEN / Unknown IP Care Team Draw / Unknown 05/21/2024 4:58 AM EDT 05/21/2024 5:17 AM EDT Mary De La Fuente MD CHEMISTRY ORDERABL ES [facility] [place] [address] * (ABNORMAL) CBC (with Diff) (05/21/2024 4:58 AM EDT) White Blood Cell 14.49(H) 4.00 - 9.50 x10(3)/mc L 05/21/2024 5:28 AM EDT [facility] Red Blood Cell 2.54(L) 4.58 - 5.54 x10(6)/mc L 05/21/2024 5:28 AM [facility] Hemoglobin 7.5(L) 13.7 - 16.5 g/dL 05/21/2024 5:28 AM [facility] Hematocrit 23.6(L) 40.5 - 48.5 % 05/21/2024 5:28 AM [facility] Mean Cell Volume 92.9 82.9 - 93.1 fL 05/21/2024 5:28 AM [facility] Mean Cell Hemoglobin 29.5 27.5 - 32.1 pg 05/21/2024 5:28 AM [facility] Mean Cell Hemoglobin Concentration 31.8(L) 32.0 - 35.7 g/dL 05/21/2024 5:28 AM [facility] Platelet 388(H) 145 - 357 x10(3)/mc L 05/21/2024 5:28 AM [facility] Mean Platelet Volume 10.8 7.6 - 12.9 fL 05/21/2024 5:28 AM [facility] RDW Standard Deviation 53.6(H) 36.0 - 45.0 fL 05/21/2024 5:28 AM [facility] RDW coefficient of variation 16.0(H) 11.4 - 13.8 % 05/21/2024 5:28 AM [facility] NRBC% auto 0.0 % 05/21/2024 5:28 AM [facility] NRBC Absolute 0.00 0.00 - 0.00 x10(3)/mc L 05/21/2024 5:28 AM EDT [facility] Neutrophil % 81.6 % 05/21/2024 5:28 AM EDT [facility] Neutrophil Absolute 11.83(H) 1.70 - 6.10 x10(3)/mc L 05/21/2024 5:28 AM EDT [facility] Lymph % 6.1 % 05/21/2024 5:28 AM EDT [facility] Lymph Absolute 0.89(L) 0.90 - 3.20 x10(3)/mc L 05/21/2024 5:28 AM EDT [facility] Monocyte % 9.4 % 05/21/2024 5:28 AM EDT [facility] Monocyte Absolute 1.36(H) 0.30 - 0.90 x10(3)/mc L 05/21/2024 5:28 AM EDT [facility] Eos % 2.1 % 05/21/2024 5:28 AM EDT [facility] Eos Absolute 0.30 0.00 - 0.40 x10(3)/mc L 05/21/2024 5:28 AM EDT [facility] Basophil % 0.2 % 05/21/2024 5:28 AM EDT [facility] Baso Absolute 0.03 0.00 - 0.10 x10(3)/mc L 05/21/2024 5:28 AM EDT [facility] Immature Gran % 0.6 % 5:28 AM EDT [facility] Immature Gran Absolute 0.08(H) 0.00 - 0.04 x10(3)/mc L 05/21/2024 5:28 AM EDT [facility] Blood VENOUS BLOOD SPECIMEN / Unknown IP Care Team Draw / Unknown 05/21/2024 4:58 AM EDT 05/21/2024 5:17 AM EDT Mary De La Fuente MD HEMATOLOGY ORDERAB LES Performing Organization Address City/State/[facility] Co de Phone Number [facility] [place] [address] * POC, GLUCOSE (05/21/2024 3:45 AM EDT) Glucometer, POC 155 65 - 199 mg/dL 05/21/2024 3:45 AM EDT [facility] Comment:Supplemental ranges: <140 mg/dL before meals <180 mg/dL all other times of the day. Blood CAPILLARY BLOOD / Unknown 05/21/2024 3:45 AM EDT 05/21/2024 3:46 AM EDT Saba Spears MD POINT OF CARE TEST ORDERABLES Performing Organization Address [facility] Co de Phone Number [facility] [place] [address] * POC, GLUCOSE (05/20/2024 11:44 PM EDT) Glucometer, POC 132 65 - 199 mg/dL 05/20/2024 11:44 PM EDT [facility] Comment:Supplemental ranges: <140 mg/dL before meals <180 mg/dL all other times of the day. Blood CAPILLARY BLOOD / Unknown 05/20/2024 11:44 PM EDT 05/20/2024 11:44 PM EDT Saba Spears MD POINT OF CARE TEST ORDERABLES Performing Organization Address City/[facility]/ZIP Co de Phone Number [facility] [place] [address] * POC, GLUCOSE (05/20/2024 7:24 PM EDT) Glucometer, POC 166 65 - 199 mg/dL 05/20/2024 7:24 PM EDT [facility] Comment:Supplemental ranges: <140 mg/dL before meals <180 mg/dL all other times of the day. Blood CAPILLARY BLOOD / Unknown 05/20/2024 7:24 PM EDT 05/20/2024 7:25 PM EDT Saba Spears MD POINT OF CARE TEST ORDERABLES Performing Organization Address City/[facility]/ZIP Co de Phone Number [facility] [place] [address] * POC, GLUCOSE (05/20/2024 4:24 PM EDT) Glucometer, POC 170 65 - 199 mg/dL 05/20/2024 4:24 PM EDT [facility] Comment:Supplemental ranges: <140 mg/dL before meals <180 mg/dL all other times of the day. Blood CAPILLARY BLOOD / Unknown 05/20/2024 4:24 PM EDT 05/20/2024 4:24 PM EDT Saba Spears MD POINT OF CARE TEST ORDERABLES Performing Organization Address City/[facility]/ZIP Co de Phone Number [facility] [place] [address] * (ABNORMAL) Hemogram (05/20/2024 12:35 PM EDT) Pathologist Kavin White Blood Cell 14.66(H) 4.00 - 9.50 x10(3)/mc L 05/20/2024 12:50 PM EDT [facility] Red Blood Cell 2.81(L) 4.58 - 5.54 x10(6)/mc L 05/20/2024 12:50 PM EDT [facility] Hemoglobin 8.4(L) 13.7 - 16.5 g/dL 05/20/2024 12:50 PM EDT [facility] Hematocrit 26.2(L) 40.5 - 48.5 % 05/20/2024 12:50 PM EDT [facility] Mean Cell Volume 93.2(H) 82.9 - 93.1 fL 05/20/2024 12:50 PM EDT [facility] Mean Cell Hemoglobin 29.9 27.5 - 32.1 pg 05/20/2024 12:50 PM EDT [facility] Mean Cell Hemoglobin Concentration 32.1 32.0 - 35.7 g/dL 05/20/2024 12:50 PM EDT [facility] Platelet 416(H) 145 - 357 x10(3)/mc L 05/20/2024 12:50 PM EDT [facility] Mean Platelet Volume 10.4 7.6 - 12.9 fL 05/20/2024 12:50 PM EDT [facility] RDW Standard Deviation 52.9(H) 36.0 - 45.0 fL 05/20/2024 12:50 PM EDT [facility] RDW coefficient of variation 15.6(H) 11.4 - 13.8 % 05/20/2024 12:50 PM EDT [facility] NRBC% auto 0.0 % 05/20/2024 12:50 PM EDT [facility] NRBC Absolute 0.00 0.00 - 0.00 x10(3)/mc L 05/20/2024 12:50 PM EDT [facility] Blood VENOUS BLOOD SPECIMEN / Unknown IP Care Team Draw / Unknown 05/20/2024 12:35 PM EDT 05/20/2024 12:43 PM EDT Saba Spears MD HEMATOLOGY ORDERABL ES [facility] [place] [address] * POC, GLUCOSE (05/20/2024 11:52 AM EDT) Glucometer, POC 176 65 - 199 mg/dL 05/20/2024 11:52 AM EDT [facility] Comment:Supplemental ranges: <140 mg/dL before meals <180 mg/dL all other times of the day. Blood CAPILLARY BLOOD / Unknown 05/20/2024 11:52 AM EDT 05/20/2024 11:52 AM EDT Saba Spears MD POINT OF CARE TEST ORDERABLES [facility] [place] [address] * US Retroperitoneal Complete (05/20/2024 10:36 AM EDT) WORKSTATION ID [id number] RAD Anatomical Region Laterality Modality Abdomen Ultrasound [...] signed by: Teofilo Ruiz MD, [facility] ([phone]), at 05/20/2024 11:30 AM Thank you for letting us participate in the care of this patient. If you are a health care provider and have any questions regarding this report, please contact the number above. For patients who have questions, please contact the health child care attendant that requested your imaging first. ?Teofilo Ruiz, Staff Physician Electronically Signed Final Report ?? 05/20/2024 11:36 am Narrative 05/20/2024 11:37 AM EDT Renal ? (Signed Final 05/20/2024 11:36 am) PATIENT INFO: ID #: ? [id number] ?: ??[birth year] (69 yrs)(M) Name: ? JOSSY SHANKS ? Visit Date: 05/20/2024 10:34 am PERFORMED BY: Attending: ?Joseph SOTOMAYOR, Teofilo Flores Resident: ? Kuldeep SOTOMAYOR, Trinidad Wright Performed By: ? Lulu Shin RDMS Referred By: ?SABA SPEARS Location: ? [place] SERVICE(S) PROVIDED: URETRO - Retroperitoneal Complete - [id number] ? [id number] INDICATIONS: CKD, increase BUN TECHNIQUE/SCAN QUALITY: Scan [...] 05/20/2024 11:36 am) PATIENT INFO: ID #: [id number] : [birth year] (69 yrs)(M) Name: JOSSY SHANKS Visit Date: 05/20/2024 10:34 am PERFORMED BY: Attending: Teofilo Ruiz MD Resident: Trniidad Light MD Performed By: Lulu Shin RDMS Referred By: SABA SPEARS Location: [place] SERVICE(S) PROVIDED: URETRO - Retroperitoneal Complete - [id number] INDICATIONS: CKD, increase BUN TECHNIQUE/SCAN QUALITY: Scan [...] signed by: Teofilo Ruiz MD, [facility] ([phone]), at 05/20/2024 11:30 AM Thank you for letting us participate in the care of this patient. If you are a health care provider and have any questions regarding this report, please contact the number above. For patients who have questions, please contact the health child care attendant that requested your imaging first. Teofilo Ruiz, Staff Physician Electronically Signed Final Report 05/20/2024 11:36 am Saba Spears MD IMG US GEN ORDERABL ES * POC, GLUCOSE (05/20/2024 8:03 AM EDT) Glucometer, POC 180 65 - 199 mg/dL 05/20/2024 8:03 AM EDT [facility] Comment:Supplemental ranges: <140 mg/dL before meals <180 mg/dL all other times of the day. Blood CAPILLARY BLOOD / Unknown 05/20/2024 8:03 AM EDT 05/20/2024 8:03 AM EDT Saba Spears MD POINT OF CARE TEST ORDERABLES Performing Organization Address [facility] de Phone Number [facility] [place] [address] * Magnesium (05/20/2024 4:27 AM EDT) Magnesium 0.99 0.69 - 1.07 mMol/L 05/20/2024 5:27 AM EDT [facility] Blood VENOUS BLOOD SPECIMEN / Unknown IP Care Team Draw / Unknown 05/20/2024 4:27 AM EDT 05/20/2024 4:52 AM EDT Mary De La Fuente MD CHEMISTRY ORDERABL ES Performing Organization Address [facility] de Phone Number [facility] [place] [address] * (ABNORMAL) Phosphorus (05/20/2024 4:27 AM EDT) Phosphorus 5.1(H) 2.5 - 4.5 mg/dL 05/20/2024 5:27 AM EDT [facility] Blood VENOUS BLOOD SPECIMEN / Unknown IP Care Team Draw / Unknown 05/20/2024 4:27 AM EDT 05/20/2024 4:52 AM EDT Mary De La Fuente MD CHEMISTRY ORDERABL ES Performing Organization Address City/[facility]/ZIP Co de Phone Number [facility] [place] [address] * (ABNORMAL) Basic Metabolic Panel (non-fasting) (05/20/2024 4:27 AM EDT) Glucose 173 65 - 199 mg/dL 05/20/2024 6:27 AM [facility] Comment:Glucose Concentratio n >=200 mg/dL plus symptoms is consistent with Diabetes Mellitus. Blood Urea Nitrogen 121(H) 10 - 20 mg/dL 05/20/2024 6:27 AM EDT [facility] Creatinine 2.78(H) 0.80 - 1.50 mg/dL 05/20/2024 6:27 AM [facility] Sodium 138 135 - 145 mMol/L 05/20/2024 6:27 AM [facility] Potassium 5.4(H) 3.5 - 5.0 mMol/L 05/20/2024 6:27 AM [facility] Chloride 109(H) 98 - 107 mMol/L 05/20/2024 6:27 AM [facility] Carbon Dioxide 18(L) 22 - 31 mMol/L 05/20/2024 6:27 AM [facility] Anion Gap 11 5 - 15 mMol/L 05/20/2024 6:27 AM [facility] Calcium 9.4 8.5 - 10.5 mg/dL 05/20/2024 6:27 AM [facility] Est Glomerular Filtration Rate - Male 24 mL/min/1. 73 m?? 05/20/2024 6:27 AM [facility] Comment: This patient's estimated [...] Fasting Status No 05/20/2024 6:27 AM EDT [facility] Blood VENOUS BLOOD SPECIMEN / Unknown IP Care Team Draw / Unknown 05/20/2024 4:27 AM EDT 05/20/2024 4:52 AM EDT Mary De La Fuente MD CHEMISTRY ORDERABL ES [facility] [place] [address] * (ABNORMAL) CBC (with Diff) (05/20/2024 4:27 AM EDT) White Blood Cell 15.20(H) 4.00 - 9.50 x10(3)/mc L 05/20/2024 5:32 AM EDT [facility] Red Blood Cell 2.69(L) 4.58 - 5.54 x10(6)/mc L 05/20/2024 5:32 AM [facility] Hemoglobin 7.9(L) 13.7 - 16.5 g/dL 05/20/2024 5:32 AM [facility] Hematocrit 25.5(L) 40.5 - 48.5 % 05/20/2024 5:32 AM [facility] Mean Cell Volume 94.8(H) 82.9 - 93.1 fL 05/20/2024 5:32 AM [facility] Mean Cell Hemoglobin 29.4 27.5 - 32.1 pg 05/20/2024 5:32 AM [facility] Mean Cell Hemoglobin Concentration 31.0(L) 32.0 - 35.7 g/dL 05/20/2024 5:32 AM [facility] Platelet 403(H) 145 - 357 x10(3)/mc L 05/20[facility]24 [facility] Mean Platelet Volume 10.7 7.6 - 12.9 fL 05/20/2024 5:32 AM [facility] RDW Standard Deviation 54.7(H) 36.0 - 45.0 fL 05/20/2024 5:32 AM [facility] RDW coefficient of variation 15.8(H) 11.4 - 13.8 % 05/20/2024 5:32 AM [facility] NRBC% auto 0.0 % 05/20/2024 5:32 AM [facility] NRBC Absolute 0.00 0.00 - 0.00 x10(3)/mc L 05/20/2024 5:32 AM [facility] Neutrophil % 82.1 % 05/20/2024 5:32 AM [facility] Neutrophil Absolute 12.49(H) 1.70 - 6.10 x10(3)/mc L 05/20/2024 5:32 AM [facility] Lymph % 6.3 % 05/20/2024 5:32 AM [facility] Lymph Absolute 0.96 0.90 - 3.20 x10(3)/mc L 05/20/2024 5:32 AM [facility] Monocyte % 8.7 % 05/20/2024 5:32 AM [facility] Monocyte Absolute 1.32(H) 0.30 - 0.90 x10(3)/mc L 05/20/2024 5:32 AM [facility] Eos % 2.0 % 05/20/2024 5:32 AM [facility] Eos Absolute 0.30 0.00 - 0.40 x10(3)/mc L 05/20/2024 5:32 AM [facility] Basophil % 0.3 % 05/20/2024 5:32 AM [facility] Baso Absolute 0.04 0.00 - 0.10 x10(3)/mc L 05/20/2024 5:32 AM EDT [facility] Immature Gran % 0.6 % 5:32 AM EDT [facility] Immature Gran Absolute 0.09(H) 0.00 - 0.04 x10(3)/mc L 05/20/2024 5:32 AM EDT [facility] Blood VENOUS BLOOD SPECIMEN / Unknown IP Care Team Draw / Unknown 05/20/2024 4:27 AM EDT 05/20/2024 4:52 AM EDT Mary De La Fuente MD HEMATOLOGY ORDERAB LES Performing Organization Address City/[facility]/ZIP Co de Phone Number [facility] [place] [address] * POC, GLUCOSE (05/20/2024 3:11 AM EDT) Glucometer, POC 163 65 - 199 mg/dL 05/20/2024 3:12 AM EDT [facility] Comment:Supplemental ranges: <140 mg/dL before meals <180 mg/dL all other times of the day. Blood CAPILLARY BLOOD / Unknown 05/20/2024 3:11 AM EDT 05/20/2024 3:12 AM EDT Saba Spears MD POINT OF CARE TEST ORDERABLES Performing Organization Address City/[facility]/ZIP Co de Phone Number [facility] [place] [address] * POC, GLUCOSE (05/19/2024 11:07 PM EDT) Glucometer, POC 136 65 - 199 mg/dL 05/19/2024 11:07 PM EDT [facility] Comment:Supplemental ranges: <140 mg/dL before meals <180 mg/dL all other times of the day. Blood CAPILLARY BLOOD / Unknown 05/19/2024 11:07 PM EDT 05/19/2024 11:07 PM EDT Saba Spears MD POINT OF CARE TEST ORDERABLES Performing Organization Address City/[facility]/ZIP Co de Phone Number [facility] [place] [address] * POC, GLUCOSE (05/19/2024 8:20 PM EDT) Glucometer, POC 150 65 - 199 mg/dL 05/19/2024 8:20 PM EDT [facility] Comment:Supplemental ranges: <140 mg/dL before meals <180 mg/dL all other times of the day. Blood CAPILLARY BLOOD / Unknown 05/19/2024 8:20 PM EDT 05/19/2024 8:21 PM EDT Saba Spears MD POINT OF CARE TEST ORDERABLES Performing Organization Address [facility]/ZIP Co de Phone Number [facility] [place] [address] * (ABNORMAL) Iron and TIBC (05/19/2024 5:09 PM EDT) Iron 58 45 - 160 mcg/dL 05/19/2024 6:56 PM EDT [facility] Unsaturated Iron Binding Capacity 143 110 - 370 mcg/dL 05/19/2024 6:56 PM EDT [facility] TIBC 201(L) 250 - 450 mcg/dL 05/19/2024 6:56 PM EDT [facility] Iron Saturation 29 20 - 50 % 6:56 PM EDT [facility] Blood VENOUS BLOOD SPECIMEN / Unknown IP Care Team Draw / Unknown 05/19/2024 5:09 PM EDT 05/19/2024 5:43 PM EDT Saba Spears MD CHEMISTRY ORDERABLE S Performing Organization Address City/[facility]/ZIP Co de Phone Number [facility] [place] [address] * PTH (05/19/2024 5:09 PM EDT) Parathyroid Hormone 27 15 - 65 pg/mL 05/19/2024 6:15 PM EDT [facility] Blood VENOUS BLOOD SPECIMEN / Unknown IP Care Team Draw / Unknown 05/19/2024 5:09 PM EDT 05/19/2024 5:43 PM EDT Saba Spears MD CHEMISTRY ORDERABLE S [facility] [place] [address] * Ferritin (05/19/2024 5:08 PM EDT) Pathologist [facility] [place] Ferritin 191 31 - 409 ng/ml 05/19/2024 6:24 PM EDT [facility] Blood VENOUS BLOOD SPECIMEN / Unknown IP Care Team Draw / Unknown 05/19/2024 5:08 PM EDT 05/19/2024 5:43 PM EDT Saba Spears MD CHEMISTRY ORDERABLE S [facility] [place] [address] * POC, GLUCOSE (05/19/2024 3:59 PM EDT) [facility] Glucometer, POC 185 65 - 199 mg/dL 05/19/2024 3:59 PM EDT [facility] Comment:Supplemental ranges: <140 mg/dL before meals <180 mg/dL all other times of the day. Blood CAPILLARY BLOOD / Unknown 05/19/2024 3:59 PM EDT 05/19/2024 3:59 PM EDT Saba Spears MD POINT OF CARE TEST ORDERABLES [facility] [place] [address] * POC, GLUCOSE (05/19/2024 12:32 PM EDT) Glucometer, POC 143 65 - 199 mg/dL 05/19/2024 12:32 PM EDT [facility] Comment:Supplemental ranges: <140 mg/dL before meals <180 mg/dL all other times of the day. Blood CAPILLARY BLOOD / Unknown 05/19/2024 12:32 PM EDT 05/19/2024 12:32 PM EDT Saba Spears MD POINT OF CARE TEST ORDERABLES [facility] [place] [address] * POC, GLUCOSE (05/19/2024 8:12 AM EDT) Glucometer, POC 181 65 - 199 mg/dL 05/19/2024 8:13 AM EDT [facility] Comment:Supplemental ranges: <140 mg/dL before meals <180 mg/dL all other times of the day. Blood CAPILLARY BLOOD / Unknown 05/19/2024 8:12 AM EDT 05/19/2024 8:13 AM EDT Saba Spears MD POINT OF CARE TEST ORDERABLES Performing Organization Address City/[facility]/ZIP Co de Phone Number [facility] [place] [address] * (ABNORMAL) Magnesium (05/19/2024 5:11 AM EDT) Magnesium 1.08(H) 0.69 - 1.07 mMol/L 05/19/2024 5:58 AM EDT [facility] Blood VENOUS BLOOD SPECIMEN / Unknown IP Care Team Draw / Unknown 05/19/2024 5:11 AM EDT 05/19/2024 5:30 AM EDT Mary De La Fuente MD CHEMISTRY ORDERABL ES Performing Organization Address City/[facility]/ZIP Co de Phone Number [facility] [place] [address] * (ABNORMAL) Phosphorus (05/19/2024 5:11 AM EDT) Phosphorus 5.1(H) 2.5 - 4.5 mg/dL 05/19/2024 5:58 AM EDT [facility] Blood VENOUS BLOOD SPECIMEN / Unknown IP Care Team Draw / Unknown 05/19/2024 5:11 AM EDT 05/19/2024 5:30 AM EDT Mary De La Fuente MD CHEMISTRY ORDERABL ES [facility] [place] [address] * (ABNORMAL) Basic Metabolic Panel (non-fasting) (05/19/2024 5:11 AM EDT) Glucose 162 65 - 199 mg/dL 05/19/2024 6:53 AM EDT [facility] Comment:Glucose Concentratio n >=200 mg/dL plus symptoms is consistent with Diabetes Mellitus. Blood Urea Nitrogen 118(H) 10 - 20 mg/dL 05/19/2024 6:53 AM EDT [facility] Creatinine 2.75(H) 0.80 - 1.50 mg/dL 05/19/2024 6:53 AM [facility] Sodium 136 135 - 145 mMol/L 05/19/2024 6:53 AM EDT [facility] Potassium 5.2(H) 3.5 - 5.0 mMol/L 05/19/2024 6:53 AM [facility] Chloride 108(H) 98 - 107 mMol/L 05/19/2024 6:53 AM [facility] Carbon Dioxide 18(L) 22 - 31 mMol/L 05/19/2024 6:[facility] Anion Gap 10 5 - 15 mMol/L 05/19/2024 6:53 AM [facility] Calcium 9.3 8.5 - 10.5 mg/dL 05/19/2024 6:53 AM EDT [facility] Est Glomerular Filtration Rate - Male 24 mL/min/1. 73 m?? 05/19/2024 6:53 AM EDT [facility] Comment: This patient's estimated [...] Fasting Status No 05/19/2024 6:53 AM EDT [facility] Blood VENOUS BLOOD SPECIMEN / Unknown IP Care Team Draw / Unknown 05/19/2024 5:11 AM EDT 05/19/2024 5:30 AM EDT Mary De La Fuente MD CHEMISTRY ORDERABL ES [facility] [place] [address] * (ABNORMAL) CBC (with Diff) (05/19/2024 5:11 AM EDT) White Blood Cell 12.77(H) 4.00 - 9.50 x10(3)/mc L 05/19/2024 5:37 AM EDT [facility] Red Blood Cell 3.11(L) 4.58 - 5.54 x10(6)/mc L 05/19/2024 5:37 AM EDT [facility] Hemoglobin 9.3(L) 13.7 - 16.5 g/dL 05/19/2024 5:37 AM EDT [facility] Hematocrit 28.9(L) 40.5 - 48.5 % 05/19/2024 5:37 AM EDT [facility] Mean Cell Volume 92.9 82.9 - 93.1 fL 05/19/2024 5:37 AM [facility] Mean Cell Hemoglobin 29.9 27.5 - 32.1 pg 05/19/2024 5:37 AM [facility] Mean Cell Hemoglobin Concentration 32.2 32.0 - 35.7 g/dL 05/19/2024 5:37 AM [facility] Platelet 379(H) 145 - 357 x10(3)/mc L 05/19/2024 5:37 AM [facility] Mean Platelet Volume 10.2 7.6 - 12.9 fL 05/19/2024 5:37 AM [facility] RDW Standard Deviation 53.1(H) 36.0 - 45.0 fL 05/19/2024 5:37 AM [facility] RDW coefficient of variation 15.8(H) 11.4 - 13.8 % 05/19/2024 5:37 AM [facility] NRBC% auto 0.0 % 05/19/2024 5:37 AM [facility] NRBC Absolute 0.00 0.00 - 0.00 x10(3)/mc L 05/19/2024 5:37 AM [facility] Neutrophil % 78.9 % 05/19/2024 5:37 AM [facility] Neutrophil Absolute 10.06(H) 1.70 - 6.10 x10(3)/mc L 05/19/2024 5:37 AM [facility] Lymph % 8.1 % 05/19/2024 5:37 AM [facility] Lymph Absolute 1.03 0.90 - 3.20 x10(3)/mc L 05/19/2024 5:37 AM [facility] Monocyte % 10.3 % 05/19/2024 5:37 AM [facility] Monocyte Absolute 1.32(H) 0.30 - 0.90 x10(3)/mc L 05/19/2024 5:37 AM EDT [facility] Eos % 1.6 % 05/19/2024 5:37 AM EDT [facility] Eos Absolute 0.21 0.00 - 0.40 x10(3)/mc L 05/19/2024 5:37 AM EDT [facility] Basophil % 0.2 % 05/19/2024 5:37 AM EDT [facility] Baso Absolute 0.03 0.00 - 0.10 x10(3)/mc L 05/19/2024 5:37 AM EDT [facility] Immature Gran % 0.9 % 5:37 AM EDT [facility] Immature Gran Absolute 0.12(H) 0.00 - 0.04 x10(3)/mc L 05/19/2024 5:37 AM EDT [facility] Blood VENOUS BLOOD SPECIMEN / Unknown IP Care Team Draw / Unknown 05/19/2024 5:11 AM EDT 05/19/2024 5:30 AM EDT Mary De La Fuente MD HEMATOLOGY ORDERAB LES [facility] [place] [address] * POC, GLUCOSE (05/19/2024 3:27 AM EDT) [facility] Signature Glucometer, POC 171 65 - 199 mg/dL 05/19/2024 3:28 AM EDT [facility] Comment:Supplemental ranges: <140 mg/dL before meals <180 mg/dL all other times of the day. Blood CAPILLARY BLOOD / Unknown 05/19/2024 3:27 AM EDT 05/19/2024 3:28 AM EDT Saba Spears MD POINT OF CARE TEST ORDERABLES [facility] [place] [address] * POC, GLUCOSE (05/19/2024 12:02 AM EDT) Glucometer, POC 183 65 - 199 mg/dL 05/19/2024 12:02 AM EDT [facility] Comment:Supplemental ranges: <140 mg/dL before meals <180 mg/dL all other times of the day. Blood CAPILLARY BLOOD / Unknown 05/19/2024 12:02 AM EDT 05/19/2024 12:02 AM EDT Saba Spears MD POINT OF CARE TEST ORDERABLES [facility] [place] [address] * (ABNORMAL) POC, GLUCOSE (05/18/2024 8:05 PM EDT) Glucometer, POC 207(H) 65 - 199 mg/dL 05/18/2024 8:06 PM EDT [facility] Comment:Supplemental ranges: <140 mg/dL before meals <180 mg/dL all other times of the day. Blood CAPILLARY BLOOD / Unknown 05/18/2024 8:05 PM EDT 05/18/2024 8:06 PM EDT Saba Spears MD POINT OF CARE TEST ORDERABLES [facility] [place] [address] * POC, GLUCOSE (05/18/2024 6:14 PM EDT) Glucometer, POC 174 65 - 199 mg/dL 05/18/2024 6:15 PM EDT [facility] Comment:Supplemental ranges: <140 mg/dL before meals <180 mg/dL all other times of the day. Blood CAPILLARY BLOOD / Unknown 05/18/2024 6:14 PM EDT 05/18/2024 6:15 PM EDT Saba Spears MD POINT OF CARE TEST ORDERABLES [facility] [place] [address] * (ABNORMAL) Basic Metabolic Panel (05/18/2024 5:04 PM EDT) Glucose 170 65 - 199 mg/dL 05/18/2024 6:14 PM EDT [facility] Comment:Glucose Concentratio n >=200 mg/dL plus symptoms is consistent with Diabetes Mellitus. Blood Urea Nitrogen 116(H) 10 - 20 mg/dL 05/18/2024 6:14 PM EDT [facility] Creatinine 2.64(H) 0.80 - 1.50 mg/dL 05/18/2024 6:14 PM EDT [facility] Sodium 139 135 - 145 mMol/L 05/18/2024 6:14 PM T [facility] Potassium 5.4(H) 3.5 - 5.0 mMol/L 05/18/2024 6:14 PM [facility] Chloride 110(H) 98 - 107 mMol/L 05/18/2024 6:14 PM [facility] Carbon Dioxide 17(L) 22 - 31 mMol/L 05/18/2024 6:[facility] Anion Gap 12 5 - 15 mMol/L 05/18/2024 6:14 PM [facility] Calcium 9.2 8.5 - 10.5 mg/dL 05/18/2024 6:[facility] Est Glomerular Filtration Rate - Male 25 mL/min/1. 73 m?? 05/18/2024 6:14 PM EDT [facility] Comment: This patient's estimated [...] Fasting Status No 05/18/2024 6:14 PM EDT [facility] Blood VENOUS BLOOD SPECIMEN / Unknown IP Care Team Draw / Unknown 05/18/2024 5:04 PM EDT 05/18/2024 5:11 PM EDT Saba Spears MD CHEMISTRY ORDERABLE S Performing Organization Address City/[facility]/ZIP Co de Phone Number [facility] [place] [address] * (ABNORMAL) POC, GLUCOSE (05/18/2024 11:45 AM EDT) Glucometer, POC 211(H) 65 - 199 mg/dL 05/18/2024 11:45 AM EDT [facility] Comment:Supplemental ranges: <140 mg/dL before meals <180 mg/dL all other times of the day. Blood CAPILLARY BLOOD / Unknown 05/18/2024 11:45 AM EDT 05/18/2024 11:45 AM EDT Saba Spears MD POINT OF CARE TEST ORDERABLES Performing Organization Address City/[facility]/ZIP Co de Phone Number [facility] [place] [address] * C diff Screen (05/18/2024 11:31 AM EDT) C Diff Interp Negative Negative 05/18/2024 3:02 PM EDT [facility] Comment:Clostridioides diffi cile is not present in the specimen. If patient is having diarrhea suspected to be from an infectious cause, then Soap & Water Contact Precautions are still required. If patient is having diarrhea with no suspected infectious cause use standard precautions. C Diff PCR Negative Negative, Indeterminate 05/18/2024 3:02 PM EDT [facility] Stool STOOL SPECIMEN / Unknown Non Blood Collection / Unknown 05/18/2024 11:31 AM EDT 05/18/2024 12:09 PM EDT Saba Spears MD MICROBIOLOGY - GENE RAL ORDERABLES Performing Organization Address City/[facility]/ZIP Co de Phone Number [facility] [place] [address] * C Diff PCR (05/18/2024 11:31 AM EDT) Stool STOOL SPECIMEN / Unknown Non Blood Collection / Unknown 05/18/2024 11:31 AM EDT 05/18/2024 12:09 PM EDT Saba Spears MD MICROBIOLOGY - GENE RAL ORDERABLES Performing Organization Address City/[facility]/ZIP Co de Phone Number [facility] [place] [address] * Creatinine, urine, random (05/18/2024 8:57 AM EDT) Creatinine, Urine 44 mg/dL 05/18/2024 9:36 AM EDT [facility] Urine URINE SPECIMEN / Unknown Non Blood Collection / Unknown 05/18/2024 8:57 AM EDT 05/18/2024 9:07 AM EDT Saba Spears MD URINE ORDERABLES Performing Organization Address City/[facility]/ZIP Co de Phone Number [facility] [place] [address] * Electrolytes, urine, random (05/18/2024 8:57 AM EDT) Sodium, Urine 50 mMol/L 05/18/2024 12:09 PM EDT [facility] Potassium, Urine 13 mMol/L 05/18/2024 12:09 PM EDT [facility] Chloride, Urine 35 mMol/L 05/18/2024 12:09 PM EDT [facility] Urine URINE SPECIMEN / Unknown Non Blood Collection / Unknown 05/18/2024 8:57 AM EDT 05/18/2024 9:07 AM EDT Saba Spears MD URINE ORDERABLES Performing Organization Address City/[facility]/ZIP Co de Phone Number [facility] [place] [address] * POC, GLUCOSE (05/18/2024 8:34 AM EDT) Glucometer, POC 182 65 - 199 mg/dL 05/18/2024 8:35 AM EDT [facility] Comment:Supplemental ranges: <140 mg/dL before meals <180 mg/dL all other times of the day. Blood CAPILLARY BLOOD / Unknown 05/18/2024 8:34 AM EDT 05/18/2024 8:35 AM EDT Saba Spears MD POINT OF CARE TEST ORDERABLES Performing Organization Address [facility]/ZIP Co de Phone Number [facility] [place] [address] * POC, GLUCOSE (05/18/2024 4:10 AM EDT) Glucometer, POC 163 65 - 199 mg/dL 05/18/2024 4:10 AM EDT [facility] Comment:Supplemental ranges: <140 mg/dL before meals <180 mg/dL all other times of the day. Blood CAPILLARY BLOOD / Unknown 05/18/2024 4:10 AM EDT 05/18/2024 4:11 AM EDT Saba Spears MD POINT OF CARE TEST ORDERABLES Performing Organization Address City/[facility]/ZIP Co de Phone Number [facility] [place] [address] * (ABNORMAL) CBC (with Diff) (05/18/2024 4:01 AM EDT) White Blood Cell 9.84(H) 4.00 - 9.50 x10(3)/mc L 05/18/2024 4:19 AM [facility] Red Blood Cell 3.24(L) 4.58 - 5.54 x10(6)/mc L 05/18/2024 4:19 AM [facility] Hemoglobin 9.6(L) 13.7 - 16.5 g/dL 05/18/2024 4:19 AM [facility] Hematocrit 31.4(L) 40.5 - 48.5 % 05/18/2024 4:19 AM [facility] Mean Cell Volume 96.9(H) 82.9 - 93.1 fL 05/18/2024 4:19 AM [facility] Mean Cell Hemoglobin 29.6 27.5 - 32.1 pg 05/18/2024 4:19 AM [facility] Mean Cell Hemoglobin Concentration 30.6(L) 32.0 - 35.7 g/dL 05/18/2024 4:19 AM [facility] Platelet 335 145 - 357 x10(3)/mc L 05/18/2024 4:19 AM [facility] Mean Platelet Volume 10.3 7.6 - 12.9 fL 05/18/2024 4:19 AM [facility] RDW Standard Deviation 56.4(H) 36.0 - 45.0 fL 05/18/2024 4:19 AM [facility] RDW coefficient of variation 15.7(H) 11.4 - 13.8 % 05/18/2024 4:19 AM [facility] NRBC% auto 0.2 % 05/18/2024 4:19 AM [facility] NRBC Absolute 0.02(H) 0.00 - 0.00 x10(3)/mc L 05/18/2024 4:19 AM [facility] Neutrophil % 76.5 % 05/18/2024 4:19 AM EDT [facility] Neutrophil Absolute 7.52(H) 1.70 - 6.10 x10(3)/mc L 05/18/2024 4:19 AM EDT [facility] Lymph % 8.0 % 05/18/2024 4:19 AM EDT [facility] Lymph Absolute 0.79(L) 0.90 - 3.20 x10(3)/mc L 05/18/2024 4:19 AM EDT [facility] Monocyte % 12.5 % 05/18/2024 4:19 AM EDT [facility] Monocyte Absolute 1.23(H) 0.30 - 0.90 x10(3)/mc L 05/18/2024 4:19 AM EDT [facility] Eos % 1.9 % 05/18/2024 4:19 AM EDT [facility] Eos Absolute 0.19 0.00 - 0.40 x10(3)/mc L 05/18/2024 4:19 AM EDT [facility] Basophil % 0.2 % 05/18/2024 4:19 AM EDT [facility] Baso Absolute 0.02 0.00 - 0.10 x10(3)/mc L 05/18/2024 4:19 AM EDT [facility] Immature Gran % 0.9 % 4:19 AM EDT [facility] Immature Gran Absolute 0.09(H) 0.00 - 0.04 x10(3)/mc L 05/18/2024 4:19 AM EDT [facility] Blood VENOUS BLOOD SPECIMEN / Unknown IP Care Team Draw / Unknown 05/18/2024 4:01 AM EDT 05/18/2024 4:13 AM EDT Mary De La Fuente MD HEMATOLOGY ORDERAB LES [facility] [place] [address] * (ABNORMAL) Magnesium (05/18/2024 4:00 AM EDT) Magnesium 1.09(H) 0.69 - 1.07 mMol/L 05/18/2024 10:11 AM EDT [facility] Blood VENOUS BLOOD SPECIMEN / Unknown IP Care Team Draw / Unknown 05/18/2024 4:00 AM EDT 05/18/2024 4:13 AM EDT Mary De La Fuente MD CHEMISTRY ORDERABL ES Performing Organization Address [facility]/ZIP Co de Phone Number [facility] [place] [address] * (ABNORMAL) Phosphorus (05/18/2024 4:00 AM EDT) Pathologist [facility] [place] Phosphorus 4.7(H) 2.5 - 4.5 mg/dL 05/18/2024 10:11 AM EDT [facility] Blood VENOUS BLOOD SPECIMEN / Unknown IP Care Team Draw / Unknown 05/18/2024 4:00 AM EDT 05/18/2024 4:13 AM EDT Mary De La Fuente MD CHEMISTRY ORDERABL ES Performing Organization Address [facility] Co de Phone Number [facility] [place] [address] * (ABNORMAL) Basic Metabolic Panel (non-fasting) (05/18/2024 4:00 AM EDT) Glucose 144 65 - 199 mg/dL 05/18/2024 10:11 AM EDT [facility] Comment:Glucose Concentratio n >=200 mg/dL plus symptoms is consistent with Diabetes Mellitus. Blood Urea Nitrogen 105(H) 10 - 20 mg/dL 05/18/2024 10:11 AM EDT [facility] Creatinine 2.69(H) 0.80 - 1.50 mg/dL 05/18/2024 10:11 AM EDT [facility] Sodium 134(L) 135 - 145 mMol/L 05/18/2024 10:11 AM EDT [facility] Potassium 5.6(H) 3.5 - 5.0 mMol/L 05/18/2024 10:11 AM [facility] Chloride 107 98 - 107 mMol/L 05/18/2024 10:11 AM [facility] [facility] Carbon Dioxide 11(L) 22 - 31 mMol/L 05/18/2024 10:11 AM [facility] Anion Gap 16(H) 5 - 15 mMol/L 05/18/2024 10:11 AM [facility] Calcium 8.8 8.5 - 10.5 mg/dL 05/18/2024 10:11 AM [facility] Est Glomerular Filtration Rate - Male 25 mL/min/1. 73 m?? 05/18/2024 10:11 AM [facility] Comment: This patient's estimated [...] Fasting Status No 05/18/2024 10:11 AM EDT [facility] Blood VENOUS BLOOD SPECIMEN / Unknown IP Care Team Draw / Unknown 05/18/2024 4:00 AM EDT 05/18/2024 4:13 AM EDT Mary De La Fuente MD CHEMISTRY ORDERABL ES [facility] [place] [address] * (ABNORMAL) POC, GLUCOSE (05/17/2024 11:30 PM EDT) Glucometer, POC 232(H) 65 - 199 mg/dL 05/17/2024 11:30 PM EDT [facility] Comment:Supplemental ranges: <140 mg/dL before meals <180 mg/dL all other times of the day. Blood CAPILLARY BLOOD / Unknown 05/17/2024 11:30 PM EDT 05/17/2024 11:30 PM EDT Saba Spears MD POINT OF CARE TEST ORDERABLES [facility] [place] [address] * POC, GLUCOSE (05/17/2024 8:12 PM EDT) Glucometer, POC 161 65 - 199 mg/dL 05/17/2024 8:12 PM EDT [facility] Comment:Supplemental ranges: <140 mg/dL before meals <180 mg/dL all other times of the day. Blood CAPILLARY BLOOD / Unknown 05/17/2024 8:12 PM EDT 05/17/2024 8:13 PM EDT Saba Spears MD POINT OF CARE TEST ORDERABLES Performing Organization Address City/[facility]/ZIP Co de Phone Number [facility] [place] [address] * POC, GLUCOSE (05/17/2024 5:35 PM EDT) Glucometer, POC 167 65 - 199 mg/dL 05/17/2024 5:35 PM EDT [facility] Comment:Supplemental ranges: <140 mg/dL before meals <180 mg/dL all other times of the day. Blood CAPILLARY BLOOD / Unknown 05/17/2024 5:35 PM EDT 05/17/2024 5:35 PM EDT Saba Spears MD POINT OF CARE TEST ORDERABLES [facility] [place] [address] * POC, GLUCOSE (05/17/2024 12:50 PM EDT) Glucometer, POC 147 65 - 199 mg/dL 05/17/2024 12:50 PM EDT [facility] Comment:Supplemental ranges: <140 mg/dL before meals <180 mg/dL all other times of the day. Blood CAPILLARY BLOOD / Unknown 05/17/2024 12:50 PM EDT 05/17/2024 12:50 PM EDT Saba Spears MD POINT OF CARE TEST ORDERABLES [facility] [place] [address] * POC, GLUCOSE (05/17/2024 8:20 AM EDT) Glucometer, POC 139 65 - 199 mg/dL 05/17/2024 8:21 AM EDT [facility] Comment:Supplemental ranges: <140 mg/dL before meals <180 mg/dL all other times of the day. Blood CAPILLARY BLOOD / Unknown 05/17/2024 8:20 AM EDT 05/17/2024 8:21 AM EDT Treva Diaz MD POINT OF CARE TEST ORDERABLES [facility] [place] [address] * (ABNORMAL) Magnesium (05/17/2024 5:49 AM EDT) Magnesium 1.14(H) 0.69 - 1.07 mMol/L 05/17/2024 6:58 AM EDT [facility] Blood IP Care Team w / Unknown 05/17/2024 5:49 AM EDT 05/17/2024 6:13 AM EDT Mary De La Fuente MD CHEMISTRY ORDERABL ES Performing Organization Address City/[facility]/ZIP Co de Phone Number [facility] [place] [address] * (ABNORMAL) Phosphorus (05/17/2024 5:49 AM EDT) Phosphorus 5.6(H) 2.5 - 4.5 mg/dL 05/17/2024 6:58 AM EDT [facility] Blood IP Care Team w / Unknown 05/17/2024 5:49 AM EDT 05/17/2024 6:13 AM EDT Mary De La Fuente MD CHEMISTRY ORDERABL ES Performing Organization Address [facility]/ZIP Co de Phone Number [facility] [place] [address] * (ABNORMAL) Basic Metabolic Panel (non-fasting) (05/17/2024 5:49 AM EDT) Glucose 131 65 - 199 mg/dL 05/17/2024 6:58 AM EDT [facility] Comment:Glucose Concentratio n >=200 mg/dL plus symptoms is consistent with Diabetes Mellitus. Blood Urea Nitrogen 86(H) 10 - 20 mg/dL 05/17/2024 6:58 AM EDT [facility] Creatinine 3.07(H) 0.80 - 1.50 mg/dL 05/17/2024 6:58 AM EDT [facility] Sodium 134(L) 135 - 145 mMol/L 05/17/2024 6:58 AM EDT [facility] Potassium 5.0 3.5 - 5.0 mMol/L 05/17/2024 6:58 AM EDT [facility] Chloride 103 98 - 107 mMol/L 05/17/2024 6:58 AM EDT [facility] Carbon Dioxide 21(L) 22 - 31 mMol/L 05/17/2024 6:58 AM EDT [facility] Anion Gap 10 5 - 15 mMol/L 05/17/2024 6:58 AM EDT [facility] Calcium 8.7 8.5 - 10.5 mg/dL 05/17/2024 6:58 AM EDT [facility] Est Glomerular Filtration Rate - Male 21 mL/min/1. 73 m?? 05/17/2024 6:58 AM EDT [facility] Comment: This patient's estimated [...] Fasting Status No 05/17/2024 6:58 AM EDT [facility] Blood IP Care Team w / Nick 05/17/2024 5:49 AM EDT 05/17/2024 6:13 AM EDT Mary De La Fuente MD CHEMISTRY ORDERABL ES [facility] [place] [address] * (ABNORMAL) CBC (with Diff) (05/17/2024 5:49 AM EDT) White Blood Cell 8.61 4.00 - 9.50 x10(3)/mc L 05/17/2024 6:28 AM EDT [facility] Red Blood Cell 3.54(L) 4.58 - 5.54 x10(6)/mc L 05/17/2024 6:28 AM EDT [facility] Hemoglobin 10.5(L) 13.7 - 16.5 g/dL 05/17/2024 6:28 AM EDT [facility] Hematocrit 33.9(L) 40.5 - 48.5 % 05/17/2024 6:28 AM [facility] Mean Cell Volume 95.8(H) 82.9 - 93.1 fL 05/17/2024 6:28 AM [facility] Mean Cell Hemoglobin 29.7 27.5 - 32.1 pg 05/17/2024 6:28 AM [facility] Mean Cell Hemoglobin Concentration 31.0(L) 32.0 - 35.7 g/dL 05/17/2024 6:28 AM [facility] Platelet 341 145 - 357 x10(3)/mc L 05/17/2024 6:28 AM [facility] Mean Platelet Volume 10.4 7.6 - 12.9 fL 05/17/2024 6:28 AM [facility] RDW Standard Deviation 56.5(H) 36.0 - 45.0 fL 05/17/2024 6:28 AM [facility] RDW coefficient of variation 15.7(H) 11.4 - 13.8 % 05/17/2024 6:28 AM [facility] NRBC% auto 0.0 % 05/17/2024 6:28 AM [facility] NRBC Absolute 0.00 0.00 - 0.00 x10(3)/mc L 05/17/2024 6:28 AM [facility] Neutrophil % 76.3 % 05/17/2024 6:28 AM [facility] Neutrophil Absolute 6.57(H) 1.70 - 6.10 x10(3)/mc L 05/17/2024 6:28 AM [facility] Lymph % 9.9 % 05/17/2024 6:28 AM [facility] Lymph Absolute 0.85(L) 0.90 - 3.20 x10(3)/mc L 05/17/2024 6:28 AM [facility] Monocyte % 11.7 % 05/17/2024 6:28 AM EDT [facility] Monocyte Absolute 1.01(H) 0.30 - 0.90 x10(3)/mc L 05/17/2024 6:28 AM EDT [facility] Eos % 0.8 % 05/17/2024 6:28 AM EDT [facility] Eos Absolute 0.07 0.00 - 0.40 x10(3)/mc L 05/17/2024 6:28 AM EDT [facility] Basophil % 0.1 % 05/17/2024 6:28 AM EDT [facility] Baso Absolute 0.01 0.00 - 0.10 x10(3)/mc L 05/17/2024 6:28 AM EDT [facility] Immature Gran % 1.2 % 6:28 AM EDT [facility] Immature Gran Absolute 0.10(H) 0.00 - 0.04 x10(3)/mc L 05/17/2024 6:28 AM EDT [facility] Blood IP Care Team Dra reilly / Nick 05/17/2024 5:49 AM EDT 05/17/2024 6:13 AM EDT Mary De La Fuente MD HEMATOLOGY ORDERAB LES [facility] [place] [address] * Vancomycin Level, Random (05/17/2024 5:49 AM EDT) Vancomycin, Random 22.4 mg/L 2023 6:58 AM EDT [facility] Comment:This level is for de termination of the patient's vancomycin jmnh-jgxtv-tpu-curve (AUC) value. Contact the inpatient pharmacy for interpretation. Blood IP Care Team Dra reilly / Nick 05/17/2024 5:49 AM EDT 05/17/2024 6:13 AM EDT Treva Diaz MD CHEMISTRY ORDERABL ES Performing Organization Address [facility] Co de Phone Number [facility] [place] [address] * POC, GLUCOSE (05/17/2024 3:54 AM EDT) Glucometer, POC 135 65 - 199 mg/dL 05/17/2024 3:55 AM EDT [facility] Comment:Supplemental ranges: <140 mg/dL before meals <180 mg/dL all other times of the day. Blood CAPILLARY BLOOD / Unknown 05/17/2024 3:54 AM EDT 05/17/2024 3:55 AM EDT Treva Diaz MD POINT OF CARE TEST ORDERABLES Performing Organization Address [facility] Co de Phone Number [facility] [place] [address] * POCT Glucose (05/16/2024 11:46 PM EDT) Glucose, POC 148 65 - 199 mg/dL [facility] Comment: Supplemental ranges: <140 mg/dL before meals <180 mg/dL all other times of the day Blood 05/16/2024 11:4 6 PM EDT 05/16/2024 11:46 PM EDT Treva Diaz MD POINT OF CARE TEST ORDERABLES Performing Organization Address City/[facility]/ZIP Co de Phone Number [facility] [place] [address] * POCT Glucose (05/16/2024 9:06 PM EDT) Glucose, POC 191 65 - 199 mg/dL [facility] Comment: Supplemental ranges: <140 mg/dL before meals <180 mg/dL all other times of the day Blood 05/16/2024 9:06 PM EDT 05/16/2024 9:06 PM EDT Treva Diaz MD POINT OF CARE TEST ORDERABLES [facility] [place] [address] * POCT Glucose (05/16/2024 8:04 PM EDT) Glucose, POC 199 65 - 199 mg/dL [facility] Comment: Supplemental ranges: <140 mg/dL before meals <180 mg/dL all other times of the day Blood 05/16/2024 8:04 PM EDT 05/16/2024 8:04 PM EDT Treva Diaz MD POINT OF CARE TEST ORDERABLES Performing Organization Address City/[facility]/ZIP Co de Phone Number [facility] [place] [address] * POCT Glucose (05/16/2024 4:51 PM EDT) Glucose, POC 162 65 - 199 mg/dL [facility] Comment: Supplemental ranges: <140 mg/dL before meals <180 mg/dL all other times of the day Blood 05/16/2024 4:51 PM EDT 05/16/2024 4:51 PM EDT Treva Diaz MD POINT OF CARE TEST ORDERABLES [facility] [place] [address] * POCT Glucose (05/16/2024 12:48 PM EDT) Glucose, POC 153 65 - 199 mg/dL [facility] Comment: Supplemental ranges: <140 mg/dL before meals <180 mg/dL all other times of the day Blood 05/16/2024 12:4 8 PM EDT 05/16/2024 12:48 PM EDT Treva Diaz MD POINT OF CARE TEST ORDERABLES [facility] [place] [address] * POCT Glucose (05/16/2024 8:45 AM EDT) Pathologist [facility] [place] Glucose, POC 165 65 - 199 mg/dL [facility] Comment: Supplemental ranges: <140 mg/dL before meals <180 mg/dL all other times of the day Blood 05/16/2024 8:45 AM EDT 05/16/2024 8:45 AM EDT Treva Diaz MD POINT OF CARE TEST ORDERABLES Performing Organization Address City/[facility]/ZIP Co de Phone Number [facility] [place] [address] * (ABNORMAL) Differential, Automated (05/16/2024 5:14 AM EDT) [facility] Neutrophil % 79.4 % [facility] Neutrophil Absolute 9.22(H) 1.70 - 6.10 x10(3)/mc L [facility] Lymph % 6.6 % [facility] Lymphocytes Abs 0.8(L) 0.9 - 3.2 x10(3)/mc L [facility] Monocyte % 9.5 % [facility] Monocyte Abs 1.1(H) 0.3 - 0.9 x10(3)/mc L [facility] Eos % 0.0 % [facility] Eosinophils Abs 0.0 0.0 - 0.4 x10(3)/mc L [facility] Basophil % 0.2 % [facility] Baso Absolute 0.0 0.0 - 0.1 x10(3)/mc L [facility] Immature Gran % 4.30 % [facility] Comment: Immature granulocytes(IG's)percentage and absolute count will include metamyelocytes, myelocytes, and promyelocytes. Blood smears from CBCs yielding IG's will be scanned manually for concordance. If this scan disagrees with the automated IG or if promyelocytes are noted, a manual differential will be performed. Immature Gran Absolute 0.50(H) 0.00 - 0.04 x10(3)/ L [facility] Blood 05/16/2024 5:14 AM EDT 05/16/2024 5:38 AM EDT Narrative Resulting Agency Comment Spec In Lab Carlotta Davis MD HEMATOLOGY OR DERABLES [facility] [place] [address] * (ABNORMAL) Hemogram (05/16/2024 5:14 AM EDT) White Blood Cell 11.6(H) 4.0 - 9.5 x10(3)/[facility] Red Blood Cell 3.59(L) 4.58 - 5.54 x10(6)/ L [facility] Hemoglobin 10.5(L) 13.7 - 16.5 g/dL [facility] Hematocrit 33.8(L) 40.5 - 48.5 % [facility] Mean Cell Volume 94.2(H) 82.9 - 93.1 fL [facility] Mean Cell Hemoglobin 29.2 27.5 - 32.1 pg [facility] Mean Cell Hemoglobin Concentration 31.1(L) 32.0 - 35.7 g/dL [facility] Platelet 317 145 - 357 x10(3)/[facility] RDW Standard Deviation 55.1(H) 36.0 - 45.0 fL [facility] RDW coefficient of variation 15.9(H) 11.4 - 13.8 % [facility] Mean Platelet Volume 10.6 7.6 - 12.9 fL [facility] NRBC% auto 0.0 % [facility] NRBC Absolute 0.000 0.000 - 0.000 x10(3)/mc L [facility] Blood 05/16/2024 5:14 AM EDT 05/16/2024 5:38 AM EDT Narrative Resulting Agency Comment Spec In Lab Carlotta Davis MD HEMATOLOGY OR DERABLES Performing Organization Address City/[facility]/ZIP Co de Phone Number [facility] [place] [address] * (ABNORMAL) Magnesium (05/16/2024 5:14 AM EDT) Magnesium 1.22(H) 0.69 - 1.07 mmol/L [facility] Blood 05/16/2024 5:14 AM EDT 05/16/2024 5:38 AM EDT Narrative Resulting Agency Comment Spec In Lab Mary De La Fuente MD CHEMISTRY ORDERABL ES Performing Organization Address [facility] Co de Phone Number [facility] [place] [address] * (ABNORMAL) Phosphorus (05/16/2024 5:14 AM EDT) Phosphorus 6.3(H) 2.5 - 4.5 mg/dL [facility] Blood 05/16/2024 5:14 AM EDT 05/16/2024 5:38 AM EDT Narrative Resulting Agency Comment Spec In Lab Mary De La Fuente MD CHEMISTRY ORDERABL ES Performing Organization Address [facility] Co de Phone Number [facility] [place] [address] * (ABNORMAL) Basic Metabolic Panel (non-fasting) (05/16/2024 5:14 AM EDT) Glucose 154 65 - 199 mg/dL [facility] Comment:Diabetes: >=200 mg/d L plus symptoms Blood Urea Nitrogen 74(H) 10 - 20 mg/dL [facility] Creatinine 2.88(H) 0.80 - 1.50 mg/dL [facility] Sodium 133(L) 135 - 145 mmol/L [facility] Potassium 5.0 3.5 - 5.0 mmol/L [facility] Comment: Please note: ??Patients with WBC >100,000 may have falsely elevated Potassium levels. ??For accurate Potassium quantification in these patients send serum separator tube (gold top) for subsequent determinations. ??Contact the Clinical Chemistry Laboratory if there are any questions. Chloride 101 98 - 107 mmol/L [facility] Carbon Dioxide 21(L) 22 - 31 mmol/L [facility] Anion Gap 11 5 - 15 mmol/L [facility] Calcium 8.8 8.5 - 10.5 mg/dL [facility] Est Glomerular Filtration Rate 23(L) >=60 mL/min/1. 73 m?? [facility] Comment: This patient's estimated [...] De La Fuente MD CHEMISTRY ORDERABL ES [facility] [place] [address] * Vancomycin Level, Random (05/16/2024 5:14 AM EDT) Vancomycin, Random 29.1 mg/L [facility] Comment: This level is for determination of the patient's vancomycin cyws-oratm-saf-curve (AUC) value. Contact the inpatient pharmacy for interpretation. Blood 05/16/2024 5:14 AM EDT 05/16/2024 5:38 AM EDT Treva Diaz MD CHEMISTRY ORDERABL ES Performing Organization Address City/[facility]/ZIP Co de Phone Number [facility] [place] [address] * POCT Glucose (05/16/2024 3:53 AM EDT) Glucose, POC 166 65 - 199 mg/dL [facility] Comment: Supplemental ranges: <140 mg/dL before meals <180 mg/dL all other times of the day Blood 05/16/2024 3:53 AM EDT 05/16/2024 3:53 AM EDT Treva Diaz MD POINT OF CARE TEST ORDERABLES Performing Organization Address [facility]/ZIP Co de Phone Number [facility] [place] [address] * POCT Glucose (05/15/2024 11:41 PM EDT) Glucose, POC 171 65 - 199 mg/dL [facility] Comment: Supplemental ranges: <140 mg/dL before meals <180 mg/dL all other times of the day Blood 05/15/2024 11:4 1 PM EDT 05/15/2024 11:41 PM EDT Treva Diaz MD POINT OF CARE TEST ORDERABLES Performing Organization Address City/[facility]/ZIP Co de Phone Number [facility] [place] [address] * POCT Glucose (05/15/2024 10:32 PM EDT) Glucose, POC 183 65 - 199 mg/dL [facility] Comment: Supplemental ranges: <140 mg/dL before meals <180 mg/dL all other times of the day Blood 05/15/2024 10:3 2 PM EDT 05/15/2024 10:32 PM EDT Treva Diaz MD POINT OF CARE TEST ORDERABLES [facility] [place] [address] * POCT Glucose (05/15/2024 7:53 PM EDT) Pathologist [facility] [place] Glucose, POC 187 65 - 199 mg/dL [facility] Comment: Supplemental ranges: <140 mg/dL before meals <180 mg/dL all other times of the day Blood 05/15/2024 7:53 PM EDT 05/15/2024 7:53 PM EDT Treva Diaz MD POINT OF CARE TEST ORDERABLES [facility] [place] [address] * MRSA PCR Screen ([facility]/APD/[facility]H) (05/15/2024 4:15 PM EDT) [facility] MRSA PCR Negative Negative [facility] MRSA (Interp) Methicillin-resist ant Staphylococcus aureus (MRSA) is NOT DETECTED The MRSA target DNA sequences (mec and SCC) were not detected within the acceptable ranges using the Xpert MRSA NxG on the GeneXpert Dx System ([employer]). This suggests the absence of MRSA in the patient specimen submitted for testing. This test is cleared by the U.[place]. Food and Drug Administration for clinical use and its performance characteristics have been verified by the [facility] at [facility]. This result does not rule out the presence of any other organisms. Rare false negative results may occur if MRSA is present at low concentrations with much higher concentrations of other organisms including MRSE or S. aureus with an empty SCC cassette. [facility] Comment: [VERIFIED DATE]05.15.24 Verified By:Lupe Jensen (Electronic Signature) Nasopharyngeal Swab 05/15/20 4:15 PM EDT 05/15/2024 6:28 PM EDT Comment:Specimen Type->Nasop haryngeal Swab Narrative Resulting Agency Comment Spec In Lab Treva Diaz MD MOLECULAR ORDERABL ES Performing Organization Address City/[facility]/ZIP Co de Phone Number [facility] [place] [address] * (ABNORMAL) POCT Glucose (05/15/2024 3:20 PM EDT) Glucose, POC 224(H) 65 - 199 mg/dL [facility] Comment: Supplemental ranges: <140 mg/dL before meals <180 mg/dL all other times of the day Blood 05/15/2024 3:20 PM EDT 05/15/2024 3:20 PM EDT Treva Diaz MD POINT OF CARE TEST ORDERABLES Performing Organization Address [facility] Co de Phone Number [facility] [place] [address] * (ABNORMAL) POCT Glucose (05/15/2024 11:39 AM EDT) Glucose, POC 213(H) 65 - 199 mg/dL [facility] Comment: Supplemental ranges: <140 mg/dL before meals <180 mg/dL all other times of the day Blood 05/15/2024 11:3 9 AM EDT 05/15/2024 11:39 AM EDT Treva Diaz MD POINT OF CARE TEST ORDERABLES Performing Organization Address City/[facility]/ZIP Co de Phone Number [facility] [place] [address] * POCT Glucose (05/15/2024 8:02 AM EDT) Glucose, POC 190 65 - 199 mg/dL [facility] Comment: Supplemental ranges: <140 mg/dL before meals <180 mg/dL all other times of the day Blood 05/15/2024 8:02 AM EDT 05/15/2024 8:02 AM EDT Treva Diaz MD POINT OF CARE TEST ORDERABLES Performing Organization Address City/State/[facility] Co de Phone Number [facility] [place] [address] * (ABNORMAL) Differential, Automated (05/15/2024 5:12 AM EDT) [facility] Neutrophil % 85.3 % [facility] Neutrophil Absolute 11.37(H) 1.70 - 6.10 x10(3)/mc L [facility] Lymph % 3.7 % [facility] Lymphocytes Abs 0.5(L) 0.9 - 3.2 x10(3)/mc L [facility] Monocyte % 9.1 % [facility] Monocyte Abs 1.2(H) 0.3 - 0.9 x10(3)/mc L [facility] Eos % 0.0 % [facility] Eosinophils Abs 0.0 0.0 - 0.4 x10(3)/mc L [facility] Basophil % 0.1 % [facility] Baso Absolute 0.0 0.0 - 0.1 x10(3)/mc L [facility] Immature Gran % 1.80 % [facility] Comment: Immature granulocytes(IG's)percentage and absolute count will include metamyelocytes, myelocytes, and promyelocytes. Blood smears from CBCs yielding IG's will be scanned manually for concordance. If this scan disagrees with the automated IG or if promyelocytes are noted, a manual differential will be performed. Immature Gran Absolute 0.24(H) 0.00 - 0.04 x10(3)/mc L [facility] Blood 05/15/2024 5:12 AM EDT 05/15/2024 5:38 AM EDT Narrative Resulting Agency Comment Spec In Lab Carlotta Davis MD HEMATOLOGY OR DERABLES [facility] [place] [address] * (ABNORMAL) Hemogram (05/15/2024 5:12 AM EDT) White Blood Cell 13.4(H) 4.0 - 9.5 x10(3)/mc L [facility] Red Blood Cell 3.58(L) 4.58 - 5.54 x10(6)/mc L [facility] Hemoglobin 10.9(L) 13.7 - 16.5 g/dL [facility] Hematocrit 34.1(L) 40.5 - 48.5 % [facility] Mean Cell Volume 95.3(H) 82.9 - 93.1 fL [facility] Mean Cell Hemoglobin 30.4 27.5 - 32.1 pg [facility] Mean Cell Hemoglobin Concentration 32.0 32.0 - 35.7 g/dL [facility] Platelet 227 145 - 357 x10(3)/mc L [facility] RDW Standard Deviation 55.8(H) 36.0 - 45.0 [facility] RDW coefficient of variation 15.8(H) 11.4 - 13.8 % [facility] Mean Platelet Volume 10.7 7.6 - 12.9 fL [facility] NRBC% auto 0.0 % [facility] NRBC Absolute 0.000 0.000 - 0.000 x10(3)/mc L [facility] Blood 05/15/2024 5:12 AM EDT 05/15/2024 5:38 AM EDT Narrative Resulting Agency Comment Spec In Lab Carlotta Davis MD HEMATOLOGY OR DERABLES Performing Organization Address [facility]/ZIP Co de Phone Number [facility] [place] [address] * (ABNORMAL) Magnesium (05/15/2024 5:12 AM EDT) Magnesium 1.21(H) 0.69 - 1.07 mmol/L [facility] Blood 05/15/2024 5:12 AM EDT 05/15/2024 5:38 AM EDT Narrative Resulting Agency Comment Spec In Lab Mary De La Fuente MD CHEMISTRY ORDERABL ES Performing Organization Address [facility] Co de Phone Number [facility] [place] [address] * (ABNORMAL) Phosphorus (05/15/2024 5:12 AM EDT) Phosphorus 6.5(H) 2.5 - 4.5 mg/dL [facility] Comment:result rechecked-HN Blood 05/15/2024 5:12 AM EDT 05/15/2024 5:38 AM EDT Narrative Resulting Agency Comment Spec In Lab Mary De La Fuente MD CHEMISTRY ORDERABL ES Performing Organization Address [facility] Co de Phone Number [facility] [place] [address] * (ABNORMAL) Basic Metabolic Panel (non-fasting) (05/15/2024 5:12 AM EDT) Glucose 217(H) 65 - 199 mg/dL [facility] Comment:Diabetes: >=200 mg/d L plus symptoms Blood Urea Nitrogen 58(H) 10 - 20 mg/dL [facility] Creatinine 2.46(H) 0.80 - 1.50 mg/dL [facility] Comment:result rechecked-HN Sodium 135 135 - 145 mmol/L [facility] Potassium 5.2(H) 3.5 - 5.0 mmol/L [facility] Comment: Please note: ??Patients with WBC >100,000 may have falsely elevated Potassium levels. ??For accurate Potassium quantification in these patients send serum separator tube (gold top) for subsequent determinations. ??Contact the Clinical Chemistry Laboratory if there are any questions. Chloride 100 98 - 107 mmol/L [facility] Carbon Dioxide 23 22 - 31 mmol/L [facility] Anion Gap 12 5 - 15 mmol/L [facility] Calcium 8.8 8.5 - 10.5 mg/dL [facility] Est Glomerular Filtration Rate 27(L) >=60 mL/min/1. 73 m?? [facility] Comment: This patient's estimated [...] De La Fuente MD CHEMISTRY ORDERABL ES [facility] [place] [address] * (ABNORMAL) POCT Glucose (05/15/2024 4:55 AM EDT) Glucose, POC 223(H) 65 - 199 mg/dL [facility] Comment: Supplemental ranges: <140 mg/dL before meals <180 mg/dL all other times of the day Blood 05/15/2024 4:55 AM EDT 05/15/2024 4:55 AM EDT Treva Diaz MD POINT OF CARE TEST ORDERABLES Performing Organization Address City/[facility]/ZIP Co de Phone Number [facility] [place] [address] * (ABNORMAL) POCT Glucose (05/15/2024 2:51 AM EDT) Glucose, POC 279(H) 65 - 199 mg/dL [facility] Comment: Supplemental ranges: <140 mg/dL before meals <180 mg/dL all other times of the day Blood 05/15/2024 2:51 AM EDT 05/15/2024 2:51 AM EDT Treva Diaz MD POINT OF CARE TEST ORDERABLES Performing Organization Address [facility] Co de Phone Number [facility] [place] [address] * (ABNORMAL) POCT Glucose (05/14/2024 9:03 PM EDT) Glucose, POC 257(H) 65 - 199 mg/dL [facility] Comment: Supplemental ranges: <140 mg/dL before meals <180 mg/dL all other times of the day Blood 05/14/2024 9:03 PM EDT 05/14/2024 9:03 PM EDT Treva Diaz MD POINT OF CARE TEST ORDERABLES Performing Organization Address City/[facility]/ZIP Co de Phone Number [facility] [place] [address] * (ABNORMAL) POCT Glucose (05/14/2024 7:15 PM EDT) Glucose, POC 207(H) 65 - 199 mg/dL [facility] Comment: Supplemental ranges: <140 mg/dL before meals <180 mg/dL all other times of the day Blood 05/14/2024 7:15 PM EDT 05/14/2024 7:15 PM EDT Treva Diaz MD POINT OF CARE TEST ORDERABLES Performing Organization Address [facility] Co de Phone Number [facility] [place] [address] * POCT Glucose (05/14/2024 4:47 PM EDT) Glucose, POC 188 65 - 199 mg/dL [facility] Comment: Supplemental ranges: <140 mg/dL before meals <180 mg/dL all other times of the day Blood 05/14/2024 4:47 PM EDT 05/14/2024 4:47 PM EDT Treva Diaz MD POINT OF CARE TEST ORDERABLES Performing Organization Address [facility] Co de Phone Number [facility] [place] [address] * POCT Glucose (05/14/2024 1:21 PM EDT) Glucose, POC 163 65 - 199 mg/dL [facility] Comment: Supplemental ranges: <140 mg/dL before meals <180 mg/dL all other times of the day Blood 05/14/2024 1:21 PM EDT 05/14/2024 1:21 PM EDT Treva Diaz MD POINT OF CARE TEST ORDERABLES Performing Organization Address City/[facility] Co de Phone Number [facility] [place] [address] * Anaerobic Culture (05/14/2024 11:33 AM EDT) Anaerobic Culture No anaerobic organisms isolated [facility] Toe 05/14/2024 11:3 3 AM EDT 05/14/2024 12:33 PM EDT Comment:PROXIMAL RIGHT 2ND T OE Narrative Resulting Agency Comment Spec In Lab Gennaro Meyers MD MICROBIOLOGY - GENE RAL ORDERABLES [facility] [place] [address] * (ABNORMAL) Tissue culture (05/14/2024 11:33 AM EDT) Tissue Culture One colony of Coagulase negative Staphylococcus species(A) [facility] Gram Stain Few Neutrophils seen Rare Gram Positive Cocci in pairs seen Results called to and read back by Dr. Mihaela Galvan ??05/14/24 14:57:00 (A) [facility] Organism Coagulase negative Staphylococcus species(A) [facility] Organism Gram Positive Cocci in pairs(A) [facility] Toe 05/14/2024 11:3 3 [...] Sensitive Comment:Gentamicin i s not appropriate for [facility]-therapy. Coagulase Negative Staphylococcus species Levofloxacin MICROSCAN METHOD [...] Meyers MD MICROBIOLOGY - GENE RAL ORDERABLES [facility] [place] [address] * Surgical Pathology Report (05/14/2024 11:32 AM EDT) Surgical Pathology Report -[id number] ? Location: [id number]; [id number]; A The signing [...] Verified: ??05/20/2024 11:25 Performed at: ??-[facility] [place], [place] [address] Transition Coach: Polly Barnhart MD, FCAP, ??CLIA Certificate: [id number] SPECIMEN(S) SUBMITTED A - RIGHT 2ND TOE, [...] Sections/Processi ng: Blocks submitted for decalcification: A1-A2. Meter Shop Superintendent sections in 2 cassettes as follows: ?A1-A2: ??Longitudinal section of digit ??k [facility] 05/14/2024 11:3 2 AM EDT Gennaro Meyers MD PATHOLOGY/CYTOLOGY ORDERABLES Performing Organization Address [facility] Co de Phone Number [facility] [place] [address] * Specimen to Pathology (05/14/2024 11:32 AM EDT) AP Specimen 05/14/2024 11:3 2 AM EDT 05/14/2024 11:32 AM EDT Narrative [facility] - 05/14/2024 11:32 AM EDT Specimen requisition ordered. ??Separate Pathology report to follow Treva Diaz MD PATHOLOGY/CYTOLOGY ORDERABLES Performing Organization Address [facility] Co de Phone Number [facility] [place] [address] * (ABNORMAL) POCT Glucose (05/14/2024 7:58 AM EDT) Glucose, POC 203(H) 65 - 199 mg/dL [facility] Comment: Supplemental ranges: <140 mg/dL before meals <180 mg/dL all other times of the day Blood 05/14/2024 7:58 AM EDT 05/14/2024 7:58 AM EDT Treva Diaz MD POINT OF CARE TEST ORDERABLES Performing Organization Address [facility] Co de Phone Number [facility] [place] [address] * (ABNORMAL) Differential, Automated (05/14/2024 5:01 AM EDT) Neutrophil % 80.5 % [facility] Neutrophil Absolute 12.45(H) 1.70 - 6.10 x10(3)/mc L [facility] Lymph % 5.5 % [facility] Lymphocytes Abs 0.8(L) 0.9 - 3.2 x10(3)/mc L [facility] Monocyte % 12.6 % [facility] Monocyte Abs 2.0(H) 0.3 - 0.9 x10(3)/[facility] Eos % 0.3 % [facility] Eosinophils Abs 0.0 0.0 - 0.4 x10(3)/[facility] Basophil % 0.2 % [facility] Baso Absolute 0.0 0.0 - 0.1 x10(3)/[facility] Immature Gran % 0.90 % [facility] Comment: Immature granulocytes(IG's)percentage and absolute count will include metamyelocytes, myelocytes, and promyelocytes. Blood smears from CBCs yielding IG's will be scanned manually for concordance. If this scan disagrees with the automated IG or if promyelocytes are noted, a manual differential will be performed. Immature Gran Absolute 0.14(H) 0.00 - 0.04 x10(3)/[facility] Blood 05/14/2024 5:01 AM EDT 05/14/2024 6:02 AM EDT Narrative Resulting Agency Comment Spec In Lab Carlotta Davis MD HEMATOLOGY OR DERABLES Performing Organization Address City/State/[facility] Co de Phone Number [facility] [place] [address] * (ABNORMAL) Hemogram (05/14/2024 5:01 AM EDT) White Blood Cell 15.5(H) 4.0 - 9.5 x10(3)/[facility] Red Blood Cell 3.55(L) 4.58 - 5.54 x10(6)/[facility] Hemoglobin 10.8(L) 13.7 - 16.5 g/dL [facility] Hematocrit 32.8(L) 40.5 - 48.5 % [facility] Mean Cell Volume 92.4 82.9 - 93.1 fL [facility] Mean Cell Hemoglobin 30.4 27.5 - 32.1 pg [facility] Mean Cell Hemoglobin Concentration 32.9 32.0 - 35.7 g/dL [facility] Platelet 190 145 - 357 x10(3)/mc L [facility] RDW Standard Deviation 53.2(H) 36.0 - 45.0 fL [facility] RDW coefficient of variation 15.6(H) 11.4 - 13.8 % [facility] Mean Platelet Volume 11.2 7.6 - 12.9 fL [facility] NRBC% auto 0.0 % [facility] NRBC Absolute 0.000 0.000 - 0.000 x10(3)/mc L [facility] Blood 05/14/2024 5:01 AM EDT 05/14/2024 6:02 AM EDT Narrative Resulting Agency Comment Spec In Lab Carlotta Davis MD HEMATOLOGY OR DERABLES Performing Organization Address [facility]/ZIP Co de Phone Number [facility] [place] [address] * Magnesium (05/14/2024 5:01 AM EDT) Magnesium 0.98 0.69 - 1.07 mmol/L [facility] Blood 05/14/2024 5:01 AM EDT 05/14/2024 6:02 AM EDT Narrative Resulting Agency Comment Spec In Lab Mary De La Fuente MD CHEMISTRY ORDERABL ES Performing Organization Address City/[facility]/ZIP Co de Phone Number [facility] [place] [address] * Phosphorus (05/14/2024 5:01 AM EDT) Phosphorus 2.8 2.5 - 4.5 mg/dL [facility] Blood 05/14/2024 5:01 AM EDT 05/14/2024 6:02 AM EDT Narrative Resulting Agency Comment Spec In Lab Mary De La Fuente MD CHEMISTRY ORDERABL ES [facility] [place] [address] * (ABNORMAL) Basic Metabolic Panel (non-fasting) (05/14/2024 5:01 AM EDT) Glucose 172 65 - 199 mg/dL [facility] Comment:Diabetes: >=200 mg/d L plus symptoms Blood Urea Nitrogen 46(H) 10 - 20 mg/dL [facility] Creatinine 1.56(H) 0.80 - 1.50 mg/dL [facility] Sodium 137 135 - 145 mmol/L [facility] Potassium 4.4 3.5 - 5.0 mmol/L [facility] Comment: Please note: ??Patients with WBC >100,000 may have falsely elevated Potassium levels. ??For accurate Potassium quantification in these patients send serum separator tube (gold top) for subsequent determinations. ??Contact the Clinical Chemistry Laboratory if there are any questions. Chloride 105 98 - 107 mmol/L [facility] Carbon Dioxide 22 22 - 31 mmol/L [facility] Anion Gap 10 5 - 15 mmol/L [facility] Calcium 8.7 8.5 - 10.5 mg/dL [facility] Est Glomerular Filtration Rate 47(L) >=60 mL/min/1. 73 m?? [facility] Comment: This patient's estimated [...] MD CHEMISTRY ORDERABL ES Performing Organization Address City/[facility]/ZIP Co de Phone Number [facility] [place] [address] * Vancomycin Level, Random (05/14/2024 5:01 AM EDT) Vancomycin, Random 13.5 mg/L [facility] Comment: This level is for determination of the patient's vancomycin vedy-arpyo-dzk-curve (AUC) value. Contact the inpatient pharmacy for interpretation. Blood 05/14/2024 5:01 AM EDT 05/14/2024 6:02 AM EDT Treva Diaz MD CHEMISTRY ORDERABL ES Performing Organization Address [facility] Co de Phone Number [facility] [place] [address] * POCT Glucose (05/13/2024 8:41 PM EDT) Glucose, POC 179 65 - 199 mg/dL [facility] Comment: Supplemental ranges: <140 mg/dL before meals <180 mg/dL all other times of the day Blood 05/13/2024 8:41 PM EDT 05/13/2024 8:41 PM EDT Treva Diaz MD POINT OF CARE TEST ORDERABLES Performing Organization Address [facility]/ZIP Co de Phone Number [facility] [place] [address] * POCT Glucose (05/13/2024 6:06 PM EDT) Glucose, POC 135 65 - 199 mg/dL [facility] Comment: Supplemental ranges: <140 mg/dL before meals <180 mg/dL all other times of the day Blood 05/13/2024 6:06 PM EDT 05/13/2024 6:06 PM EDT Treva Diaz MD POINT OF CARE TEST ORDERABLES [facility] [place] [address] * POCT Glucose (05/13/2024 11:12 AM EDT) Glucose, POC 163 65 - 199 mg/dL [facility] Comment: Supplemental ranges: <140 mg/dL before meals <180 mg/dL all other times of the day Blood 05/13/2024 11:1 2 AM EDT 05/13/2024 11:12 AM EDT Treva Diaz MD POINT OF CARE TEST ORDERABLES Performing Organization Address City/[facility]/ZIP Co de Phone Number [facility] [place] [address] * POCT Glucose (05/13/2024 7:47 AM EDT) Glucose, POC 194 65 - 199 mg/dL [facility] Comment: Supplemental ranges: <140 mg/dL before meals <180 mg/dL all other times of the day Blood 05/13/2024 7:47 AM EDT 05/13/2024 7:47 AM EDT Treva Diaz MD POINT OF CARE TEST ORDERABLES Performing Organization Address City/[facility]/ZIP Co de Phone Number [facility] [place] [address] * Scan, Peripheral Blood (05/13/2024 5:29 AM EDT) Plat estimate Normal [facility] RBC Morphology Abnormal [facility] Monroe Cells 1-5 /HPF [facility] Plat, Giant Less than 1 /HPF [facility] Blood 05/13/2024 5:29 AM EDT 05/13/2024 5:49 AM EDT Narrative Resulting Agency Comment Spec In Lab Carlotta Davis MD HEMATOLOGY OR DERABLES [facility] [place] [address] * (ABNORMAL) Differential, Automated (05/13/2024 5:29 AM EDT) Neutrophil % 81.8 % [facility] Neutrophil Absolute 12.66(H) 1.70 - 6.10 x10(3)/mc L [facility] Lymph % 5.0 % [facility] Lymphocytes Abs 0.8(L) 0.9 - 3.2 x10(3)/mc L [facility] Monocyte % 12.3 % [facility] Monocyte Abs 1.9(H) 0.3 - 0.9 x10(3)/mc L [facility] Eos % 0.2 % [facility] Eosinophils Abs 0.0 0.0 - 0.4 x10(3)/mc L [facility] Basophil % 0.1 % [facility] Baso Absolute 0.0 0.0 - 0.1 x10(3)/mc L [facility] Immature Gran % 0.60 % [facility] Comment: Immature granulocytes(IG's)percentage and absolute count will include metamyelocytes, myelocytes, and promyelocytes. Blood smears from CBCs yielding IG's will be scanned manually for concordance. If this scan disagrees with the automated IG or if promyelocytes are noted, a manual differential will be performed. Immature Gran Absolute 0.09(H) 0.00 - 0.04 x10(3)/mc L [facility] Blood 05/13/2024 5:29 AM EDT 05/13/2024 5:49 AM EDT Narrative Resulting Agency Comment Spec In Lab Carlotta Davis MD HEMATOLOGY OR DERABLES [facility] [place] [address] * (ABNORMAL) Hemogram (05/13/2024 5:29 AM EDT) White Blood Cell 15.5(H) 4.0 - 9.5 x10(3)/mc L [facility] Red Blood Cell 3.64(L) 4.58 - 5.54 x10(6)/mc L [facility] Hemoglobin 10.9(L) 13.7 - 16.5 g/dL [facility] Hematocrit 33.3(L) 40.5 - 48.5 % [facility] Mean Cell Volume 91.5 82.9 - 93.1 fL [facility] Mean Cell Hemoglobin 29.9 27.5 - 32.1 pg [facility] Mean Cell Hemoglobin Concentration 32.7 32.0 - 35.7 g/dL [facility] Platelet 186 145 - 357 x10(3)/mc L [facility] RDW Standard Deviation 53.0(H) 36.0 - 45.0 fL [facility] RDW coefficient of variation 15.8(H) 11.4 - 13.8 % [facility] Mean Platelet Volume 11.8 7.6 - 12.9 fL [facility] NRBC% auto 0.0 % [facility] NRBC Absolute 0.000 0.000 - 0.000 x10(3)/mc L [facility] Blood 05/13/2024 5:29 AM EDT 05/13/2024 5:49 AM EDT Narrative Resulting Agency Comment Spec In Lab Carlotta Davis MD HEMATOLOGY OR DERABLES Performing Organization Address [facility] Co de Phone Number [facility] [place] [address] * Magnesium (05/13/2024 5:29 AM EDT) [facility] Magnesium 0.99 0.69 - 1.07 mmol/L [facility] Blood 05/13/2024 5:29 AM EDT 05/13/2024 5:49 AM EDT Narrative Resulting Agency Comment Spec In Lab Mary De La Fuente MD CHEMISTRY ORDERABL ES Performing Organization Address [facility] Co de Phone Number [facility] [place] [address] * Phosphorus (05/13/2024 5:29 AM EDT) [facility] Phosphorus 2.7 2.5 - 4.5 mg/dL [facility] Blood 05/13/2024 5:29 AM EDT 05/13/2024 5:49 AM EDT Narrative Resulting Agency Comment Spec In Lab Mary De La Fuente MD CHEMISTRY ORDERABL ES Performing Organization Address [facility] Co de Phone Number [facility] [place] [address] * (ABNORMAL) Basic Metabolic Panel (non-fasting) (05/13/2024 5:29 AM EDT) [facility] Glucose 166 65 - 199 mg/dL [facility] Comment:Diabetes: >=200 mg/d L plus symptoms Blood Urea Nitrogen 57(H) 10 - 20 mg/dL [facility] Creatinine 1.53(H) 0.80 - 1.50 mg/dL [facility] Sodium 137 135 - 145 mmol/L [facility] Potassium 4.4 3.5 - 5.0 mmol/L [facility] Comment: Please note: ??Patients with WBC >100,000 may have falsely elevated Potassium levels. ??For accurate Potassium quantification in these patients send serum separator tube (gold top) for subsequent determinations. ??Contact the Clinical Chemistry Laboratory if there are any questions. Chloride 104 98 - 107 mmol/L [facility] Carbon Dioxide 24 22 - 31 mmol/L [facility] Anion Gap 9 5 - 15 mmol/L [facility] Calcium 8.7 8.5 - 10.5 mg/dL [facility] Est Glomerular Filtration Rate 49(L) >=60 mL/min/1. 73 m?? [facility] Comment: This patient's estimated [...] MD CHEMISTRY ORDERABL ES Performing Organization Address City/[facility]/ZIP Co de Phone Number [facility] [place] [address] * POCT Glucose (05/12/2024 11:46 PM EDT) Glucose, POC 165 65 - 199 mg/dL [facility] Comment: Supplemental ranges: <140 mg/dL before meals <180 mg/dL all other times of the day Blood 05/12/2024 11:4 6 PM EDT 05/12/2024 11:46 PM EDT Treva Diaz MD POINT OF CARE TEST ORDERABLES [facility] [place] [address] * POCT Glucose (05/12/2024 8:36 PM EDT) Glucose, POC 164 65 - 199 mg/dL [facility] Comment: Supplemental ranges: <140 mg/dL before meals <180 mg/dL all other times of the day Blood 05/12/2024 8:36 PM EDT 05/12/2024 8:36 PM EDT Treva Diaz MD POINT OF CARE TEST ORDERABLES Performing Organization Address City/[facility]/ZIP Co de Phone Number [facility] [place] [address] * POCT Glucose (05/12/2024 5:38 PM EDT) Glucose, POC 175 65 - 199 mg/dL [facility] Comment: Supplemental ranges: <140 mg/dL before meals <180 mg/dL all other times of the day Blood 05/12/2024 5:38 PM EDT 05/12/2024 5:38 PM EDT Treva Diaz MD POINT OF CARE TEST ORDERABLES Performing Organization Address [facility] Co de Phone Number [facility] [place] [address] * Vancomycin Level, Random (05/12/2024 2:10 PM EDT) Vancomycin, Random 22.3 mg/L [facility] Comment: This level is for determination of the patient's vancomycin rvuy-ldhhf-frm-curve (AUC) value. Contact the inpatient pharmacy for interpretation. Blood 05/12/2024 2:10 PM EDT 05/12/2024 2:23 PM EDT Treva Diaz MD CHEMISTRY ORDERABL ES Performing Organization Address City/[facility]/ZIP Co de Phone Number [facility] [place] [address] * POCT Glucose (05/12/2024 1:42 PM EDT) Pathologist [facility] [place] Glucose, POC 168 65 - 199 mg/dL [facility] Comment: Supplemental ranges: <140 mg/dL before meals <180 mg/dL all other times of the day Blood 05/12/2024 1:42 PM EDT 05/12/2024 1:42 PM EDT Treva Diaz MD POINT OF CARE TEST ORDERABLES [facility] [place] [address] * Duplex for DVT, Leg, Unilat (05/12/2024 10:19 AM EDT) [facility] VB Text Report Department: Vascular Surgery Lab Patient: [id number] (JOSSY SHANKS) CPT: 17850 Referring Physician: MARY DE LA FUENTE ?? [...] Glucose, POC 161 65 - 199 mg/dL [facility] Comment: Supplemental ranges: <140 mg/dL before meals <180 mg/dL all other times of the day Blood 05/12/2024 9:00 AM EDT 05/12/2024 9:00 AM EDT Treva Diaz MD POINT OF CARE TEST ORDERABLES Performing Organization Address [facility] Co de Phone Number [facility] [place] [address] * (ABNORMAL) Sedimentation rate (05/12/2024 4:45 AM EDT) [facility] Sedimentation Rate Automated >119(H) 3 - 46 mm/hr [facility] Comment: Effective September 24, [...] MD HEMATOLOGY ORDERABLE S Performing Organization Address [facility] [facility] Co de Phone Number [facility] [place] [address] * (ABNORMAL) CRP, acute inflammation (05/12/2024 4:45 AM EDT) [facility] C-Reactive Protein 152.4(H) <=4.9 mg/L [facility] Blood Venous Draw / Unknown 05/12/2024 4:45 AM EDT 05/12/2024 5:12 AM EDT Narrative Resulting Agency Comment Spec In Lab Juan José Harrison MD CHEMISTRY ORDERABLES Performing Organization Address [facility] Co de Phone Number [facility] [place] [address] * (ABNORMAL) Differential, Automated (05/12/2024 4:45 AM EDT) Neutrophil % 87.9 % [facility] Neutrophil Absolute 17.31(H) 1.70 - 6.10 x10(3)/ L [facility] Lymph % 3.9 % [facility] Lymphocytes Abs 0.8(L) 0.9 - 3.2 x10(3)/[facility] Monocyte % 7.4 % [facility] Monocyte Abs 1.4(H) 0.3 - 0.9 x10(3)/[facility] Eos % 0.0 % [facility] Eosinophils Abs 0.0 0.0 - 0.4 x10(3)/[facility] Basophil % 0.1 % [facility] Baso Absolute 0.0 0.0 - 0.1 x10(3)/[facility] Immature Gran % 0.70 % [facility] Comment: Immature granulocytes(IG's)percentage and absolute count will include metamyelocytes, myelocytes, and promyelocytes. Blood smears from CBCs yielding IG's will be scanned manually for concordance. If this scan disagrees with the automated IG or if promyelocytes are noted, a manual differential will be performed. Immature Gran Absolute 0.14(H) 0.00 - 0.04 x10(3)/[facility] Blood 05/12/2024 4:45 AM EDT 05/12/2024 5:06 AM EDT Narrative Resulting Agency Comment Spec In Lab Carlotta Davis MD HEMATOLOGY OR DERABLES [facility] [place] [address] * (ABNORMAL) Hemogram (05/12/2024 4:45 AM EDT) White Blood Cell 19.7(H) 4.0 - 9.5 x10(3)/mc L [facility] Red Blood Cell 3.58(L) 4.58 - 5.54 x10(6)/mc L [facility] Hemoglobin 10.9(L) 13.7 - 16.5 g/dL [facility] Hematocrit 33.1(L) 40.5 - 48.5 % [facility] Mean Cell Volume 92.5 82.9 - 93.1 fL [facility] Mean Cell Hemoglobin 30.4 27.5 - 32.1 pg [facility] Mean Cell Hemoglobin Concentration 32.9 32.0 - 35.7 g/dL [facility] Platelet 165 145 - 357 x10(3)/[facility] RDW Standard Deviation 53.2(H) 36.0 - 45.0 [facility]ORY RDW coefficient of variation 15.7(H) 11.4 - 13.8 % [facility] Mean Platelet Volume 12.1 7.6 - 12.9 [facility]ORY NRBC% auto 0.0 % [facility] NRBC Absolute 0.000 0.000 - 0.000 x10(3)/[facility] Blood 05/12/2024 4:45 AM EDT 05/12/2024 5:06 AM EDT Narrative Resulting Agency Comment Spec In Lab Carlotta Davis MD HEMATOLOGY OR DERABLES [facility] [place] [address] * Magnesium (05/12/2024 4:45 AM EDT) Magnesium 1.07 0.69 - 1.07 mmol/L [facility] Blood 05/12/2024 4:45 AM EDT 05/12/2024 5:06 AM EDT Narrative Resulting Agency Comment Spec In Lab Mary De La Fuente MD CHEMISTRY ORDERABL ES [facility] [place] [address] * Phosphorus (05/12/2024 4:45 AM EDT) Phosphorus 2.7 2.5 - 4.5 mg/dL [facility] Blood 05/12/2024 4:45 AM EDT 05/12/2024 5:06 AM EDT Narrative Resulting Agency Comment Spec In Lab Mary De La Fuente MD CHEMISTRY ORDERABL ES Performing Organization Address [facility] Co de Phone Number [facility] [place] [address] * (ABNORMAL) Basic Metabolic Panel (non-fasting) (05/12/2024 4:45 AM EDT) Glucose 156 65 - 199 mg/dL [facility] Comment:Diabetes: >=200 mg/d L plus symptoms Blood Urea Nitrogen 72(H) 10 - 20 mg/dL [facility] Creatinine 2.03(H) 0.80 - 1.50 mg/dL [facility] Sodium 135 135 - 145 mmol/L [facility] Potassium 4.5 3.5 - 5.0 mmol/L [facility] Comment: Please note: ??Patients with WBC >100,000 may have falsely elevated Potassium levels. ??For accurate Potassium quantification in these patients send serum separator tube (gold top) for subsequent determinations. ??Contact the Clinical Chemistry Laboratory if there are any questions. Chloride 101 98 - 107 mmol/L [facility] Carbon Dioxide 24 22 - 31 mmol/L [facility] Anion Gap 10 5 - 15 mmol/L [facility] Calcium 8.4(L) 8.5 - 10.5 mg/dL [facility] Est Glomerular Filtration Rate 35(L) >=60 mL/min/1. 73 m?? [facility] Comment: This patient's estimated [...] De La Fuente MD CHEMISTRY ORDERABL ES [facility] [place] [address] * ANGY, legs, multiple levels (05/12/2024 3:22 AM EDT) VB Text Report Department: Vascular Surgery Lab Patient: [id number] (JOSSY SHANKS) CPT: 38692 Referring Physician: THO DICKSON ?? Phone: Indications: [...] MD VASCULAR ORDERABLE S Performing Organization Address [facility] de Phone Number [facility] * (ABNORMAL) POCT Glucose (05/11/2024 8:14 PM EDT) Glucose, POC 201(H) 65 - 199 mg/dL [facility] Comment: Supplemental ranges: <140 mg/dL before meals <180 mg/dL all other times of the day Blood 05/11/2024 8:14 PM EDT 05/11/2024 8:14 PM EDT Treva Diaz MD POINT OF CARE TEST ORDERABLES Performing Organization Address [facility] de Phone Number [facility] [place] [address] * Vancomycin Level, Random (05/11/2024 8:10 PM EDT) Vancomycin, Random 21.7 mg/L [facility] Comment: This level is for determination of the patient's vancomycin theu-sdzai-ptc-curve (AUC) value. Contact the inpatient pharmacy for interpretation. Blood 05/11/2024 8:10 PM EDT 05/11/2024 8:32 PM EDT Treva Diaz MD CHEMISTRY ORDERABL ES Performing Organization Address [facility] Co de Phone Number [facility] [place] [address] * POCT Glucose (05/11/2024 4:34 PM EDT) Glucose, POC 197 65 - 199 mg/dL [facility] Comment: Supplemental ranges: <140 mg/dL before meals <180 mg/dL all other times of the day Blood 05/11/2024 4:34 PM EDT 05/11/2024 4:34 PM EDT Treva Diaz MD POINT OF CARE TEST ORDERABLES Performing Organization Address City/[facility]/ZIP Co de Phone Number [facility] [place] [address] * (ABNORMAL) POCT Glucose (05/11/2024 11:47 AM EDT) Glucose, POC 255(H) 65 - 199 mg/dL [facility] Comment: Supplemental ranges: <140 mg/dL before meals <180 mg/dL all other times of the day Blood 05/11/2024 11:4 7 AM EDT 05/11/2024 11:47 AM EDT Treva Diaz MD POINT OF CARE TEST ORDERABLES Performing Organization Address [facility] Co de Phone Number [facility] [place] [address] * (ABNORMAL) POCT Glucose (05/11/2024 6:57 AM EDT) Glucose, POC 200(H) 65 - 199 mg/dL [facility] Comment: Supplemental ranges: <140 mg/dL before meals <180 mg/dL all other times of the day Blood 05/11/2024 6:57 AM EDT 05/11/2024 6:57 AM EDT Treva Diaz MD POINT OF CARE TEST ORDERABLES Performing Organization Address City/[facility]/ZIP Co de Phone Number [facility] [place] [address] * (ABNORMAL) Differential, Automated (05/11/2024 2:00 AM EDT) Neutrophil % 85.8 % [facility] Neutrophil Absolute 22.16(H) 1.70 - 6.10 x10(3)/mc L [facility] Lymph % 1.5 % [facility] Lymphocytes Abs 0.4(L) 0.9 - 3.2 x10(3)/ L [facility] Monocyte % 4.9 % [facility] Monocyte Abs 1.3(H) 0.3 - 0.9 x10(3)/mc L [facility] Eos % 0.0 % [facility] Eosinophils Abs 0.0 0.0 - 0.4 x10(3)/ L [facility] Basophil % 0.1 % [facility] Baso Absolute 0.0 0.0 - 0.1 x10(3)/ L [facility] Immature Gran % 7.70 % [facility] Comment: Immature granulocytes(IG's)percentage and absolute count will include metamyelocytes, myelocytes, and promyelocytes. Blood smears from CBCs yielding IG's will be scanned manually for concordance. If this scan disagrees with the automated IG or if promyelocytes are noted, a manual differential will be performed. Immature Gran Absolute 1.98(H) 0.00 - 0.04 x10(3)/ L [facility] Blood 05/11/2024 2:00 AM EDT 05/11/2024 2:07 AM EDT Narrative Resulting Agency Comment Spec In Lab Carlotta Davis MD HEMATOLOGY OR DERABLES Performing Organization Address City/State/[facility] Co de Phone Number [facility] [place] [address] * (ABNORMAL) Hemogram (05/11/2024 2:00 AM EDT) White Blood Cell 25.8(H) 4.0 - 9.5 x10(3)/ L [facility] Red Blood Cell 3.64(L) 4.58 - 5.54 x10(6)/ L [facility] Hemoglobin 10.9(L) 13.7 - 16.5 g/dL [facility] Hematocrit 32.5(L) 40.5 - 48.5 % [facility] Mean Cell Volume 89.3 82.9 - 93.1 fL [facility] Mean Cell Hemoglobin 29.9 27.5 - 32.1 pg [facility] Mean Cell Hemoglobin Concentration 33.5 32.0 - 35.7 g/dL [facility] Platelet 141(L) 145 - 357 x10(3)/mc L [facility] RDW Standard Deviation 51.2(H) 36.0 - 45.0 fL [facility] RDW coefficient of variation 15.6(H) 11.4 - 13.8 % [facility] Mean Platelet Volume 12.9 7.6 - 12.9 fL [facility] NRBC% auto 0.0 % [facility] NRBC Absolute 0.000 0.000 - 0.000 x10(3)/mc L [facility] Blood 05/11/2024 2:00 AM EDT 05/11/2024 2:07 AM EDT Narrative Resulting Agency Comment Spec In Lab Carlotta Davis MD HEMATOLOGY OR DERABLES Performing Organization Address [facility] Co de Phone Number [facility] [place] [address] * Magnesium (05/11/2024 2:00 AM EDT) Magnesium 1.01 0.69 - 1.07 mmol/L [facility] Blood 05/11/2024 2:00 AM EDT 05/11/2024 2:07 AM EDT Narrative Resulting Agency Comment Spec In Lab Mary De La Fuente MD CHEMISTRY ORDERABL ES Performing Organization Address [facility] Co de Phone Number [facility] [place] [address] * Phosphorus (05/11/2024 2:00 AM EDT) Phosphorus 4.0 2.5 - 4.5 mg/dL [facility] Blood 05/11/2024 2:00 AM EDT 05/11/2024 2:07 AM EDT Narrative Resulting Agency Comment Spec In Lab Mary De La Fuente MD CHEMISTRY ORDERABL ES [facility] [place] [address] * (ABNORMAL) Basic Metabolic Panel (non-fasting) (05/11/2024 2:00 AM EDT) Glucose 212(H) 65 - 199 mg/dL [facility] Comment:Diabetes: >=200 mg/d L plus symptoms Blood Urea Nitrogen 72(H) 10 - 20 mg/dL [facility] Creatinine 2.58(H) 0.80 - 1.50 mg/dL [facility] Comment:result rechecked-HN Sodium 136 135 - 145 mmol/L [facility] Potassium 4.7 3.5 - 5.0 mmol/L [facility] Comment: Please note: ??Patients with WBC >100,000 may have falsely elevated Potassium levels. ??For accurate Potassium quantification in these patients send serum separator tube (gold top) for subsequent determinations. ??Contact the Clinical Chemistry Laboratory if there are any questions. Chloride 100 98 - 107 mmol/L [facility] Carbon Dioxide 24 22 - 31 mmol/L [facility] Anion Gap 12 5 - 15 mmol/L [facility] Calcium 8.3(L) 8.5 - 10.5 mg/dL [facility] Est Glomerular Filtration Rate 26(L) >=60 mL/min/1. 73 m?? [facility] Comment: This patient's estimated [...] CHEMISTRY ORDERABL ES Performing Organization Address [facility] Co de Phone Number [facility] [place] [address] * Vancomycin Level, Random (05/11/2024 2:00 AM EDT) Pathologist [facility] [place] Vancomycin, Random 21.4 mg/L [facility] Comment: This level is for determination of the patient's vancomycin xxxn-iykmi-koi-curve (AUC) value. Contact the inpatient pharmacy for interpretation. Blood 05/11/2024 2:00 AM EDT 05/11/2024 2:07 AM EDT Mary De La Fuente MD CHEMISTRY ORDERABL ES Performing Organization Address [facility] Co va Phone Number [facility] [place] [address] * (ABNORMAL) POCT Glucose (05/10/2024 11:40 PM EDT) Glucose, POC 230(H) 65 - 199 mg/dL [facility] Comment: Supplemental ranges: <140 mg/dL before meals <180 mg/dL all other times of the day Blood 05/10/2024 11:4 0 PM EDT 05/10/2024 11:40 PM EDT Treva Diaz MD POINT OF CARE TEST ORDERABLES Performing Organization Address [facility] Co de Phone Number [facility] [place] [address] * POCT Glucose (05/10/2024 4:09 PM EDT) Glucose, POC 189 65 - 199 mg/dL [facility] Comment: Supplemental ranges: <140 mg/dL before meals <180 mg/dL all other times of the day Blood 05/10/2024 4:09 PM EDT 05/10/2024 4:09 PM EDT Treva Diaz MD POINT OF CARE TEST ORDERABLES [facility] [place] [address] * POCT Glucose (05/10/2024 12:11 PM EDT) Glucose, POC 185 65 - 199 mg/dL [facility] Comment: Supplemental ranges: <140 mg/dL before meals <180 mg/dL all other times of the day Blood 05/10/2024 12:1 1 PM EDT 05/10/2024 12:11 PM EDT Mary De La Fuente MD POINT OF CARE TEST ORDERABLES Performing Organization Address City/[facility]/ZIP Co de Phone Number [facility] [place] [address] * Vancomycin Level, Random (05/10/2024 12:00 PM EDT) Vancomycin, Random 15.5 mg/L [facility] Comment: This level is for determination of the patient's vancomycin nonl-bhvkf-qxm-curve (AUC) value. Contact the inpatient pharmacy for interpretation. Blood 05/10/2024 12:0 0 PM EDT 05/10/2024 12:21 PM EDT Tho Dickson MD CHEMISTRY ORDERABLES [facility] [place] [address] * POCT Glucose (05/10/2024 8:09 AM EDT) Glucose, POC 195 65 - 199 mg/dL [facility] Comment: Supplemental ranges: <140 mg/dL before meals <180 mg/dL all other times of the day Blood 05/10/2024 8:09 AM EDT 05/10/2024 8:09 AM EDT Mary De La Fuente MD POINT OF CARE TEST ORDERABLES [facility] [place] [address] * CK (05/10/2024 6:55 AM EDT) Creatine Kinase 58 0 - 200 unit/L [facility] Blood Venous Draw / Unknown 05/10/2024 6:55 AM EDT 05/10/2024 7:41 AM EDT Narrative Resulting Agency Comment Spec In Lab Emmanuel Corey DO CHEMISTRY ORDERABLES Performing Organization Address [facility]/ZIP Co de Phone Number [facility] [place] [address] * (ABNORMAL) Phosphorus (05/10/2024 6:55 AM EDT) Phosphorus 5.1(H) 2.5 - 4.5 mg/dL [facility] Blood 05/10/2024 6:55 AM EDT 05/10/2024 6:59 AM EDT Narrative Resulting Agency Comment Spec In Lab Tho Dickson MD CHEMISTRY ORDERABLES Performing Organization Address City/[facility]/ZIP Co de Phone Number [facility] [place] [address] * (ABNORMAL) Basic Metabolic Panel (non-fasting) (05/10/2024 6:55 AM EDT) Glucose 193 65 - 199 mg/dL [facility] Comment:Diabetes: >=200 mg/d L plus symptoms Blood Urea Nitrogen 69(H) 10 - 20 mg/dL [facility] Creatinine 3.75(H) 0.80 - 1.50 mg/dL [facility] Sodium 128(L) 135 - 145 mmol/L [facility] Potassium 5.0 3.5 - 5.0 mmol/L [facility] Comment: Please note: ??Patients with WBC >100,000 may have falsely elevated Potassium levels. ??For accurate Potassium quantification in these patients send serum separator tube (gold top) for subsequent determinations. ??Contact the Clinical Chemistry Laboratory if there are any questions. Chloride 93(L) 98 - 107 mmol/L [facility] Carbon Dioxide 23 22 - 31 mmol/L [facility] Anion Gap 12 5 - 15 mmol/L [facility] Calcium 8.6 8.5 - 10.5 mg/dL [facility] Est Glomerular Filtration Rate 17(L) >=60 mL/min/1. 73 m?? [facility] Comment: This patient's estimated [...] In Lab Tho Dickson MD CHEMISTRY ORDERABLES [facility] [place] [address] * Lactate, whole blood, send to lab ([facility] (05/10/2024 6:55 AM EDT) Lactate WB 1.7 0.5 - 2.2 mmol/L [facility] Blood 05/10/2024 6:55 AM EDT 05/10/2024 7:00 AM EDT Narrative Resulting Agency Comment Spec In Lab Tho Dickson MD CHEMISTRY ORDERABLES [facility] [place] [address] * MRI Foot wwo Contrast Right (05/10/2024 5:51 AM EDT) Pathologist [employer] WORKSTATION ID [id number] [facility] [place] Anatomical Region Laterality Modality Foot Right Magnetic [...] have questions please contact the health child care attendant that requested your imaging first. ? Narrative [...] who have questions please contactthe health child care attendant that requested your imaging first. Electronically signed by: Trinidad Mota MD, [facility]([phone]), at 05/10/2024 12:56 PM Tho Dickson MD [facility] MRI ORDERABLES * Creatinine, urine, random (05/10/2024 4:15 AM EDT) Creatinine, Urine 106 mg/dL [facility] Urine 05/10/2024 4:15 AM EDT 05/10/2024 4:23 AM EDT Narrative Resulting Agency Comment Spec In Lab Tho Dickson MD URINE ORDERABLES [facility] [place] [address] * Sodium, urine, random (05/10/2024 4:15 AM EDT) Sodium, Urine <20 mmol/L [facility] Urine 05/10/2024 4:15 AM EDT 05/10/2024 4:23 AM EDT Narrative Resulting Agency Comment Spec In Lab Tho Dickson MD URINE ORDERABLES Performing Organization Address [facility]/ZIP Co de Phone Number [facility] [place] [address] * Urea nitrogen, urine, random (05/10/2024 4:15 AM EDT) Urea Nitrogen, Urine 580 mg/dL [facility] Urine 05/10/2024 4:15 AM EDT 05/10/2024 4:23 AM EDT Narrative Resulting Agency Comment Spec In Lab Tho Dickson MD URINE ORDERABLES Performing Organization Address [facility] Co de Phone Number [facility] [place] [address] * (ABNORMAL) Skin/Superficial Wound Culture Toe (05/10/2024 2:56 AM EDT) Skin/Superfic ial Wound Culture Rare mixed bacterial morphotypes suggestive of normal cutaneous aramni including Rare Gram Negative Rods (A) [facility] Gram Stain Many Neutrophils seen Few Gram Positive Cocci seen (A) [facility] Organism Gram Negative Rods(A) [facility] Organism Gram Positive Cocci(A) [facility] Superficial Wound TOE STRUCTURE / Unknown 05/10/2024 2:56 AM EDT 05/10/2024 5:18 AM EDT Comment:Right toe wound Narrative Resulting Agency Comment Spec In Lab Tho Dickson MD MICROBIOLOGY - GENER AL ORDERABLES Performing Organization Address City/[facility]/ZIP Co de Phone Number [facility] [place] [address] * (ABNORMAL) Urinalysis without microscopic (05/10/2024 2:42 AM EDT) Glucose, Urine Dipstick Negative Negative mg/dL [facility] Protein, Urine Dipstick 30(A) Negative mg/dL [facility] Bilirubin, Urine Dipstick Negative Negative mg/dL [facility] Comment: Clinical correlation required for positive Urine Bilirubin results as false positive may occur with some drugs and drug related products. If a false positive is suspected a serum total bilirubin should be considered if clinically indicated. Urobilinogen, Urine Dipstick Normal Normal mg/dL [facility] pH, Urn (dipstick) 5.5 5.0 - 8.0 [facility] Blood, Urine Dipstick Large(A) Negative mg/dL [facility] Ketone, Urine Dipstick Negative Negative mg/dL [facility] Nitrite, Urine Dipstick Negative Negative [facility] Leukocytes, Urine Dipstick Small(A) Negative [facility] Appearance, Urine Dipstick Cloudy(A) Clear [facility] Specific [place] Urine Automated 1.017 1.005 - 1.030 [facility] Color, Urine Dipstick [place](A) Yellow [facility] Urine 05/10/2024 2:42 AM EDT 05/10/2024 2:57 AM EDT Narrative Resulting Agency Comment Spec In Lab Tho Dickson MD URINE ORDERABLES Performing Organization Address City/State/[facility] Co de Phone Number [facility] [place] [address] * XR Chest One View (05/10/2024 2:37 AM EDT) WORKSTATION ID [id number] RAD Anatomical Region Laterality Modality Chest N/A Digital Radiogra phy Impressions 05/10/2024 3:27 AM EDT Bibasilar atelectasis. Thank you for letting us participate in the care of this patient. ??If you are a health care provider and have any questions regarding this report, please contact the number below. ??For patients who have questions please contact the health child care attendant that requested your imaging first. ? Narrative [...] who have questions please contactthe health child care attendant that requested your imaging first. Tho Dickson MD IMG DX ORDERABLES * Blood culture (05/10/2024 2:32 AM EDT) Blood Culture No growth at 5 days. [facility] Blood STRUCTURE OF RIGHT HAND / Unknown 05/10/2024 2:32 AM EDT 05/10/2024 4:17 AM EDT Narrative Resulting Agency Comment Spec In Lab Tho Dickson MD MICROBIOLOGY - BLOOD ORDERABLES Performing Organization Address [facility] Co de Phone Number [facility] [place] [address] * (ABNORMAL) POCT Glucose (05/10/2024 2:30 AM EDT) Pathologist [facility] [place] Glucose, POC 201(H) 65 - 199 mg/dL [facility] Comment: Supplemental ranges: <140 mg/dL before meals <180 mg/dL all other times of the day Blood 05/10/2024 2:30 AM EDT 05/10/2024 2:30 AM EDT Tho Dickson MD POINT OF CARE TEST O RDERABLES Performing Organization Address [facility] Co de Phone Number [facility] [place] [address] * Vancomycin Level, Random (05/10/2024 2:20 AM EDT) Vancomycin, Random 26.9 mg/L M [facility] Comment: This level is for determination of the patient's vancomycin qjgz-ppfjn-eeg-curve (AUC) value. Contact the inpatient pharmacy for interpretation. Blood Venous Draw / Unknown 05/10/2024 2:20 AM EDT 05/10/2024 2:38 AM EDT Tho Dickson MD CHEMISTRY ORDERABLES [facility] [place] [address] * Scan, Peripheral Blood (05/10/2024 2:20 AM EDT) Plat estimate Normal [facility] RBC Morphology Abnormal [facility] Ovalocytes 1-5 /HPF [facility] Monroe Cells 1-5 /HPF [facility] Plat, Giant Less than 1 /HPF [facility] Blood 05/10/2024 2:20 AM EDT 05/10/2024 2:36 AM EDT Narrative Resulting Agency Comment Spec In Lab Anita Camacho MD HEMATOLOGY ORDERABLE S Performing Organization Address [facility] Co de Phone Number [facility] [place] [address] * Type and Screen Validity (05/10/2024 2:20 AM EDT) T&S only valid at [facility] Comment:This Type and Screen result is only valid at the [facility] Blood 05/10/2024 2:20 AM EDT 05/10/2024 2:49 AM EDT Narrative Resulting Agency Comment Spec In Lab Anita Camacho MD BLOOD BANK LAB ORDER ANGELIQUE Performing Organization Address City/[facility]/ZIP Co de Phone Number [facility] [place] [address] * ABORH Recheck Status (05/10/2024 2:20 AM EDT) ABORH Recheck Order Order Placed [facility] ABORH Type Recheck Completed [facility] Blood 05/10/2024 2:20 AM EDT 05/10/2024 2:49 AM EDT Narrative Resulting Agency Comment Spec In Lab Anita Camacho MD BLOOD BANK LAB ORDER ANGELIQUE [facility] [place] [address] * (ABNORMAL) Differential, Automated (05/10/2024 2:20 AM EDT) Neutrophil % 89.2 % [facility] Neutrophil Absolute 25.39(H) 1.70 - 6.10 x10(3)/mc L [facility] Lymph % 1.2 % [facility] Lymphocytes Abs 0.4(L) 0.9 - 3.2 x10(3)/mc L [facility] Monocyte % 2.9 % [facility] Monocyte Abs 0.8 0.3 - 0.9 x10(3)/mc L [facility] Eos % 0.0 % [facility] Eosinophils Abs 0.0 0.0 - 0.4 x10(3)/mc L [facility] Basophil % 0.2 % [facility] Baso Absolute 0.1 0.0 - 0.1 x10(3)/mc L [facility] Immature Gran % 6.50 % [facility] Comment: Immature granulocytes(IG's)percentage and absolute count will include metamyelocytes, myelocytes, and promyelocytes. Blood smears from CBCs yielding IG's will be scanned manually for concordance. If this scan disagrees with the automated IG or if promyelocytes are noted, a manual differential will be performed. Immature Gran Absolute 1.85(H) 0.00 - 0.04 x10(3)/mc L [facility] Blood 05/10/2024 2:20 AM EDT 05/10/2024 2:36 AM EDT Narrative Resulting Agency Comment Spec In Lab Anita Camacho MD HEMATOLOGY ORDERABLE S Performing Organization Address [facility]/ZIP Co de Phone Number [facility] [place] [address] * (ABNORMAL) Hemogram (05/10/2024 2:20 AM EDT) White Blood Cell 28.5(H) 4.0 - 9.5 x10(3)/ L [facility] Red Blood Cell 3.83(L) 4.58 - 5.54 x10(6)/ L [facility] Hemoglobin 11.4(L) 13.7 - 16.5 g/dL [facility] Hematocrit 34.5(L) 40.5 - 48.5 % [facility] Mean Cell Volume 90.1 82.9 - 93.1 fL [facility] Mean Cell Hemoglobin 29.8 27.5 - 32.1 pg [facility] Mean Cell Hemoglobin Concentration 33.0 32.0 - 35.7 g/dL [facility] Platelet 135(L) 145 - 357 x10(3)/[facility] RDW Standard Deviation 51.9(H) 36.0 - 45.0 [facility] RDW coefficient of variation 15.6(H) 11.4 - 13.8 % [facility] Mean Platelet Volume 12.8 7.6 - 12.9 [facility] NRBC% auto 0.0 % [facility] NRBC Absolute 0.000 0.000 - 0.000 x10(3)/[facility] Blood 05/10/2024 2:20 AM EDT 05/10/2024 2:36 AM EDT Narrative Resulting Agency Comment Spec In Lab Anita Camacho MD HEMATOLOGY ORDERABLE S [facility] [place] [address] * (ABNORMAL) Hemoglobin A1c (05/10/2024 2:20 AM EDT) Hemoglobin A1c 5.9(H) 4.3 - 5.6 % [facility] Comment: Reference Range: 4.3 [...] Mellitus, Diabetes Care 2013; 36: Suppl. 1, I27-20 Estimated Average Glucose See note mg/dL [facility] Comment: Estimated Average Glucose not appropriate for patients over 70 years of age. Blood 05/10/2024 2:20 AM EDT 05/10/2024 2:36 AM EDT Narrative Resulting Agency Comment Spec In Lab Tho Dickson MD CHEMISTRY ORDERABLES Performing Organization Address [facility] Co de Phone Number [facility] [place] [address] * Hepatic Function Panel (05/10/2024 2:20 AM EDT) Protein, Total 7.6 6.1 - 8.0 g/dL [facility] Albumin 3.3 3.2 - 5.2 g/dL [facility] Aspartate Aminotransferase 21 0 - 39 unit/L [facility] Alanine Aminotransferase 19 0 - 55 unit/L [facility] Alkaline Phosphatase 42 40 - 130 unit/L [facility] Bilirubin, Total 0.5 0.2 - 1.3 mg/dL [facility] Bilirubin, Direct 0.2 0.0 - 0.3 mg/dL [facility] Blood 05/10/2024 2:20 AM EDT 05/10/2024 2:36 AM EDT Narrative Resulting Agency Comment Spec In Lab Tho Dickson MD CHEMISTRY ORDERABLES Performing Organization Address [facility] Co de Phone Number [facility] [place] [address] * (ABNORMAL) Phosphorus (05/10/2024 2:20 AM EDT) Phosphorus 4.6(H) 2.5 - 4.5 mg/dL [facility] Blood 05/10/2024 2:20 AM EDT 05/10/2024 2:36 AM EDT Narrative Resulting Agency Comment Spec In Lab Tho Dickson MD CHEMISTRY ORDERABLES Performing Organization Address [facility]/ZIP Co de Phone Number [facility] [place] [address] * Magnesium (05/10/2024 2:20 AM EDT) Pathologist [facility] [place] Magnesium 0.85 0.69 - 1.07 mmol/L [facility] Blood 05/10/2024 2:20 AM EDT 05/10/2024 2:36 AM EDT Narrative Resulting Agency Comment Spec In Lab Tho Dickson MD CHEMISTRY ORDERABLES Performing Organization Address [facility] Co de Phone Number [facility] [place] [address] * (ABNORMAL) Basic Metabolic Panel (non-fasting) (05/10/2024 2:20 AM EDT) Pathologist [facility] [place] Glucose 196 65 - 199 mg/dL [facility] Comment:Diabetes: >=200 mg/d L plus symptoms Blood Urea Nitrogen 71(H) 10 - 20 mg/dL [facility] Creatinine 3.94(H) 0.80 - 1.50 mg/dL [facility] Sodium 129(L) 135 - 145 mmol/L [facility] Potassium 5.3(H) 3.5 - 5.0 mmol/L [facility] Comment: Please note: ??Patients with WBC >100,000 may have falsely elevated Potassium levels. ??For accurate Potassium quantification in these patients send serum separator tube (gold top) for subsequent determinations. ??Contact the Clinical Chemistry Laboratory if there are any questions. Chloride 93(L) 98 - 107 mmol/L [facility] Carbon Dioxide 24 22 - 31 mmol/L [facility] Anion Gap 12 5 - 15 mmol/L [facility] Calcium 8.5 8.5 - 10.5 mg/dL [facility] Est Glomerular Filtration Rate 16(L) >=60 mL/min/1. 73 m?? [facility] Comment: This patient's estimated [...] In Lab Tho Dickson MD CHEMISTRY ORDERABLES [facility] [place] [address] * (ABNORMAL) Prothrombin Time (05/10/2024 2:20 AM EDT) Prothrombin Time 27.9(H) 9.4 - 12.5 sec [facility] International Normalization Ratio 2.5 [facility] Comment: An INR <2.0 [...] MD HEMATOLOGY ORDERABLE S Performing Organization Address City/[facility]/ZIP Co de Phone Number [facility] [place] [address] * Type and screen ([facility]) (05/10/2024 2:20 AM EDT) ABORH Type O POSITIVE [facility] Patient BB History Not Found [facility] Expires at [id number] on: 05-13-2024 [facility] Ab Screen Interp Negative [facility] Blood 05/10/2024 2:20 AM EDT 05/10/2024 2:20 AM EDT Narrative [facility] - 05/10/2024 2:20 AM EDT This Type and Screen result is only valid at the [facility] Resulting Agency Comment Spec In Lab Tho Dickson MD BLOOD BANK LAB ORDER ANGELIQUE Performing Organization Address City/[facility]/ZIP Co de Phone Number [facility] [place] [address] * (ABNORMAL) Lactate, whole blood, send to lab ([facility]) (05/10/2024 2:20 AM EDT) Lactate WB 2.3(H) 0.5 - 2.2 mmol/L [facility] Blood 05/10/2024 2:20 AM EDT 05/10/2024 2:36 AM EDT Narrative Resulting Agency Comment Spec In Lab Tho Dickson MD CHEMISTRY ORDERABLES Performing Organization Address City/[facility]/ZIP Co de Phone Number [facility] [place] [address] documented in this encounter Visit Diagnoses Diagnosis [...] over 4 Hours, Warning Vesicant/Irritant Medication Per [employer] operations specialist labeling, do not administer or Y-site [...] over 4 Hours, Warning Vesicant/Irritant Medication Per [employer] operations specialist labeling, do not administer or Y-site [...] Lai, JACKIE)[phone] (Given - Provider: Juan José Lai RN) [...] HOURS, First dose (after last modification) on [place] 05/18/24 at 1430, Until Discontinued, Routine 0258 [...] Alyssa Villalobos RN)[phone] (Given - Provider: Alyssa iVllalobos RN) ipratropium-albuteroL (Duoneb) 0.5 mg-3 mg(2.5 mg base)/3 mL nebulizer solution 3 mL 3 mL, Nebulization, EVERY 6 HOURS, First dose (after last modification) on [place] 05/22/24 at 1230, Until Discontinued, Routine 1230 [...] documented as of this encounter Care Teams Pressed Or Blown Glass 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
--- OUTSIDE RECORDS SUMMARY | 2024-06-06 23:58 | XMS_ITS | Encounter Summary ---
Author Organization [place] [id number] Care Team Providers Care Packaging Sales Name Role Phone None Primary Care Provider Unavailabl e Reason for Visit * Auth/Cert (Routine) Specialty Diagnoses / Procedures Referred By Contac t Referred To Contact Diagnoses Septic shock septiic shock Procedures ER Tho Aquino MD [facility] [place] [address] [facility] Referral ID Status Reason Start Date Expiration Date Visits Re quested Visits Authorized [id number] 1 1 Encounter Details Date Type Department Care Team (Late st Contact Info) Description 05/22/2024 4:33 PM EDT Anesthesia [place] [address] Soledad Doyle MD [facility] [place] [address] Davie Le MD [facility] [place] [address] Anesthesia Record Procedure Summary Procedure Name Responsible [...] Procedure Summary Date: 05/22/24 Room / Location: [facility] ENDO 5 / [facility] ENDOSCOPY Anesthesia Start: 1633 Anesthesia Stop: 1649 Procedures: EGD, UPPER GI ENDOSCOPY (WRVU 2.09) (Trunk) EGD, W CONTROL OF BLEEDING, ANY METHOD (WRVU 3.56) EGD, W DIRECTED SUBMUCOSAL INJECTION(S) (WRVU 2.39) Diagnosis: (? melena) Surgeons: Jonn Mena MD Responsible Provider: Soledad Doyle MD Anesthesia Type: MAC ASA Status: 3 All Anesthesia Providers: Anesthesiologist: Soledad Doyle MD SEISMOGRAPH OBSERVER: Gennaro Real CRNA Vitals Value Taken Time BP 168/83 05/22/24 1740 Temp Pulse Resp SpO2 97 % 05/22/24 1750 Pain Level 0 05/22/24 1745 Patient Location: PACU/[facility] Level of Consciousness: Conscious but Sleepy Pain [...] Access Non-Dialysis 05/21/2024 Juan José Flowers MD [facility] INTERVENTIONL RAD PRO AMPUTATION METATARSAL+TOE, SINGLE Right 05/14/2024 AMPUTATION, TRANSMETATARSAL TOE, ONE TOE (WRVU 6.64) performed by Elkin Garcia MD at [facility] MAIN OR Social History Tobacco Use [...] 10:30 AM EDT Office [place] [address] Elkin Garcia MD [facility] [place] [address] documented as of this encounter Visit Diagnoses [...] mg documented in this encounter Care Teams Packaging Sales Relationship 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
--- OUTSIDE RECORDS SUMMARY | 2024-06-06 23:59 | XMS_ITS | Encounter Summary ---
[place] [address] Care Team Providers Care Sql Analyst Name Role Phone None Primary Care Provider Unavailabl e Reason for Visit * Auth/Cert (Routine) Specialty Diagnoses / Procedures Referred By Contac t Referred To Contact Diagnoses Septic shock septiic shock Procedures ER Tho Aquino MD [facility] [place] [address] [facility] Referral ID Status Reason Start Date Expiration Date Visits Re quested Visits Authorized [id number] 1 1 Encounter Details Date Type Department Care Team (Late st Contact Info) Description 05/22/2024 1:00 PM EDT - 05/22/2024 1:30 PM EDT [place] [address] Jonn Mena MD [facility] [place] [address] EGD, UPPER GI ENDOSCOPY (WRVU 2.09) Social [...] Jossy Shanks Patient Age: 69 y.o. Language: Sammarinese Race: White Ethnicity: Not nor Admit date: [...] your inpatient physician through the [facility] [employer] . Issues afterhours and on weekends will [...] home oxygen, HFpEF, HTN who presented to [facility] for rt LE cellulitis, transferred to [facility] for septic shock. At end of March he dropped cylinder block on rt foot, bleeding and painful. Kept bandaged and sock on it, same sock on it for the last week, reports sock became fused to wound. Denies paresthesia. Wasable to walk w/out difficulty. In last several days erythema and edema spread upper Rt LE to knee. Fevers & chills for last 24hrs. Boaz lightheaded, weak, & couldn't get out of [...] OSH departure. On arrival to [facility]: HR 96, o2 sat mid 90s on [...] same day as transfer to [facility]. On the general medicine floor, he was [...] border dressing. (Melgisorb Ag 6x6 PS # [id number]) (Melgisorb Ag 4x4 PS # [id number]) Sacrum/ischium: open to air, utilize Z-guard if [...] 05/10/2024 2:37 AM) Result Value WORKSTATION ID [id number] Impression Bibasilar atelectasis. Thank you for letting us participate in the care of this patient. If you are a health care provider and have any questions regarding this report, please contact the number below. For patients who have questions please contact the health long term acute care registered nurse that requested your imaging first. Foot wwo Contrast Right (Exam End: 05/10/2024 5:51 AM) Result Value WORKSTATION ID [id number] Impression 1. Soft tissue irregularity of the [...] who have questions please contact the health long term acute care registered nurse that requested your imaging first. Retroperitoneal Complete (Exam End: 05/20/2024 10:36 AM) Result Value WORKSTATION ID [id number] Impression 1. Very limited exam secondary to [...] who have questions, please contact the health long term acute care registered nurse that requested your imaging first. Teofilo Ruiz, [...] 2:00 PM Lu Mcfarland APRN [facility] ID 5C [facility] 06/05/2024 4:00 PM Elkin Garcia MD [facility] ORTH 3C [facility] Your Discharge Medication List Your Medications New [...] as much as possible. Call your doctor ([phone]) if you develop: Fever greater than 100.5 Severe nausea or vomiting Increasing pain that is not controlled by pain medications Increasing redness, swelling, or drainage from incisions Change in sensation FOLLOW-UP APPOINTMENTS: 1. You will have follow-up appointments at [facility] as indicated below in Future Appointment and Orders. 2. You will need to have x-rays prior to your follow-up appointment listed below. Please come to Radiology, desk 3T, 1 hour BEFORE that appointment for these x-rays. Future Appointments Date Time Provider Department Center 06/03/2024 2:00 PM Lu Mcfarland APRN [facility] ID 5C [facility] 06/05/2024 4:00 PM Elkin Garcia MD [facility] ORTH 3C [facility] If you have questions or concerns: Sunday [...] the day after the procedure, use an jemr-ynk-xmzabfm spray to numb your throat. Sucking on [...] occurs, please contact your Doctor. Please call [phone] before 8pm Mon-Fri with problems, questions or concerns. If you call after 8pm or on weekends, call the Hospital at [phone] and ask to speak to the Meat Scrubber teacher vocational training and the cold press operator will contact that person for you. When should you call for help? Call [phone] anytime you think you may need emergency [...] Where can you learn more? [facility] View your After Visit Summary and more online at [email or web address] If you would like to provide feedback about your hospital experience, please call the Office of Patient and Family Relations at . If you have received this After Visit Summary in error, please immediately return it in person to the department, or notify the [facility] Privacy Office by calling toll free at between the hours of 8AM and 5PM to arrange for our retrieval of the documents at no cost to you. Content Version: 12.2 ?? 3170-2268 [email or web address]. Care instructions adapted under license by [facility]. If you have questions about a medical condition or this instruction, always ask your healthcare professional. [email or web address] disclaims any warranty or liability for your [...] is during regular working hours, please call [phone]. If it is after 5 pm or a weekend or holiday, call [phone] and ask for the Religious Educator teacher vocational training for Interventional Radiology. You have received medication [...] Mcfarland APRN Infectious Disease at [facility] Arrive at: Otr Owner Operator Truck Driver Area 5C [phone] 06/05/2024 4:00 PM Elkin Garcia MD Orthopaedics at [facility] Arrive at: Otr Owner Operator Truck Driver Area 3C [phone] Future Orders Complete By Expires OPAT: Order / Recommendation for Post Discharge IV Antibiotic Management [IVH957 CPT(R)] As directed Process Instructions: If no progress note charted, please enter Clinical details in comments. Scheduling Instructions: Comments: - If this order was signed greater than 72 hours prior to [facility] discharge, please call to confirm the accuracy of this order. Please Fax all results to: [facility] Program Infectious Disease Section [facility], [place] [address] FAX: - After hours, please contact the Infectious Disease Physician teacher vocational training at . - Line care instructions - see flush/heparin orders. Facilities may follow organizational policies/practices regarding heparin. - longterm for medication administration/design supervisor and catheter care/maintenance authorized. HD Line [...] draw labs every Sunday fax results to [facility] at [phone]. Please draw labs off PICC line. Please see [facility] order for lab draw details. Please RN visit for IV ABX teaching and ongoing assessment. Senior Care for Medication Administration/Hookup and catheter care/maintenance: - Teach Patient/Caregiver goals/self-monitoring/therapy administration to independence per the Nursing Care Plan. - longterm visit frequency; initial, weekly and 2 PRN [...] 05/20/2024 11:36 am) PATIENT INFO: ID #: [id number].: [id number] (69 yrs)(M) Name: JOSSY SHANKS Visit Date: 05/20/2024 10:34 am PERFORMED BY: Attending: Teofilo Ruiz MD Resident: Triniadd Light MD Performed By: Lulu Shin RDMS Referred By: SABA SPEARS Location: [place] SERVICE(S) PROVIDED: URETRO - Retroperitoneal Complete - [id number] INDICATIONS: CKD, increase BUN TECHNIQUE/SCAN QUALITY: Scan [...] patients whohave questions, please contact the health long term acute care registered nurse that requested your imaging first. Teofilo Ruiz, Staff Physician Electronically Signed Final Report 05/20/2024 11:36 am My clinical question: Patient to establish for CKD management Do not type below here ERFRL_NEPH_CKD Questions: My question or request is: See comment Provider Contact Information: None None None Discharge References/Attachments Low Phosphorus Foods: General Info (Sammarinese) Low Potassium Foods: General Info (Sammarinese) documented in this encounter Discharge Instructions * [...] the day after the procedure, use an dotv-mxy-zijzawp spray to numb your throat. Sucking on [...] occurs, please contact your Doctor. Please call [phone] before 8pm Mon-Fri with problems, questions or concerns. If you call after 8pm or on weekends, call the Hospital at [phone] and ask to speak to the Meat Scrubber teacher vocational training and the cold press operator will contact that person for you. [...] Where can you learn more? [facility] View your After Visit Summary and more online at [email or web address] If you would like to provide feedback about your hospital experience, please call the Office of Patient and Family Relations at . If you have received this After Visit Summary in error, please immediately return it in person to the department, or notify the [facility] Privacy Office by calling toll free at between the hours of 8AM and 5PM to arrange for our retrieval of the documents at no cost to you. Content Version: 12.2 ?? 5227-8342 [email or web address]. Care instructions adapted under license by [facility]. If you have questions about a medical condition or this instruction, always ask your healthcare professional. [email or web address] disclaims any warranty or liability for your [...] is during regular working hours, please call [phone]. If it is after 5 pm or a weekend or holiday, call [phone] and ask for the Religious Educator teacher vocational training for Interventional Radiology. You have received medication [...] 2:00 PM Lu Mcfarland APRN [facility] ID 5C [facility] 06/05/2024 4:00 PM Elkin Garcia MD [facility] ORTH 3C [facility] Your Discharge Medication List Your Medications New [...] as much as possible. Call your doctor ([phone]) if you develop: Fever greater than 100.5 Severe nausea or vomiting Increasing pain that is not controlled by pain medications Increasing redness, swelling, or drainage from incisions Change in sensation FOLLOW-UP APPOINTMENTS: 1. You will have follow-up appointments at [facility] as indicated below in Future Appointment and Orders. 2. You will need to have x-rays prior to your follow-up appointment listed below. Please come to Radiology, desk 3T, 1 hour BEFORE that appointment for these x-rays. Future Appointments Date Time Provider Department Center 06/03/2024 2:00 PM Lu Mcfarland APRN [facility] ID 5C [facility] 06/05/2024 4:00 PM Elkin Garcia MD [facility] ORTH 3C [facility] If you have questions or concerns: Sunday through Sunday, 8 AM - 5 PM, please call Dr. Saba Spears MD's office at . If it is after 5 PM, the weekend, or holidays, please call and ask to speak with theOrthopedic resident on-call. * Attachments The following attachments cannot be sent through Care Everywhere. * Low Phosphorus Foods: General Info (Sammarinese) * Low Potassium Foods: General Info (Sammarinese) documented in this encounter Medications at Time [...] spent >30 minutes (Day of Discharge Code 09486) involved in the final examination of the patient, discussion of the hospital stay, instructions for continuing care to all relevant caregivers, and preparation of discharge records, prescriptions and referral forms. Plans Discharge to [facility] rehab Follow-up scheduled with ID, ortho, provider at [facility] Please see the Discharge Summary for complete details of any medication changes and additional plans. * Yg Jaffe - 05/23/2024 2:44 PM EDT Office of Care Management(OCM)/[employer](RS) Patient Name: Jossy Shanks : 1955 Patient has been offered a SNF bed at [phone]. [facility] arranged for a BLS transport at 1530. Ambulance will need: Medicare ambulance form completed and signed (MD or Warp Dresser) Copy of patient demographics [place] or [place] Out of Hospital DNR/DNI order, if active No MD to MD report necessary. Please call Nursing Report to , ask for dental technician. Info to accompany patient: Narcotic Prescriptions Copies of Medication Administration Records and IV sheets for past two weeks. Plan: [employer] will be available to the patient and Warp [employer]er for further assistance. Patient to discharge to: [facility] Yg Jaffe [employer] * Shirley Samuel RN - 05/23/2024 12:05 PM EDT Physician Certification Statement for Non-Emergency Ambulance Services Section I - General Information Guanakojaren Allyssa Shanks 1955 Medicare Number: n/a Transport Date: 05/23/2024 (PCS is valid for round trips on this date and for all repetitive trips in the 60-day range as noted below.) Origin: [facility] Destination: [facility] Is the patient's stay [...] van (i.e. seated during transport, without medical dir or monitoring?): No 4) In addition to [...] the Centers of Medicare and Medicaid Services ([facility]) to support the determination of medical necessity [...] Reports and images personally reviewed in [facility]. Images independently interpreted. IR Tunneled [...] who have questions, please contact the health long term acute care registered nurse that requested your imaging first. Teofilo Ruiz, [...] who have questions please contact the health long term acute care registered nurse that requested your imaging first. Chest One View Final Result Bibasilar atelectasis. Thank you for letting us participate in the care of this patient. If you are a health care provider and have any questions regarding this report, please contact the number below. For patients who have questions please contact the health long term acute care registered nurse that requested your imaging first. SCOPY: Reports [...] as documented. Tl Steele MD [facility] Gastroenterology * Irene Bravo RN - 05/22/2024 [...] Zhao RN - 05/22/2024 12:47 PM EDT Computer Terminal Operator spoke with JACKIE Nuñez from Endo [...] Galvan MD - 05/22/2024 6:57 AM EDT [facility] Medicine - Red Team Inpatient Progress [...] with PT - hoping to go to [facility] today Meds: pantoprazole 40 mg Intravenous BID furosemide 40 mg Oral QAM epoetin leah-epbx 10,000 Units Subcutaneous Daily insulin glargine (Lantus;Semglee) (100 unit/mL) subcutaneous injection 14 Units Subcutaneous Nightly lactobacillius capsule 1 capsule Oral Daily ipratropium-albuteroL 3 mL Nebulization Q4H insulin lispro 1-6 Units Subcutaneous Q4H [facility] cefTRIAXone 2 g Intravenous Q24H insulin lispro [...] shoe, c/w pt - Bed ready at [facility] #IDDM Home regiment: 1.2mg liraglutide qd, [...] upcoming EGD, and availability of bed at [facility]. -ordered T&S in case continues [...] Medicine Hospital Medicine Red Team - Pager [phone] Associated attestation - Saba Speasr MD - 05/22/2024 5:19 PM EDT Attending [...] will transfuse and monitor response. Dispo to [facility] for rehab pending Hgb stability and EGD. I have examined the patient myself and personally reviewed all studies. In addition, I certify thatI am a D-H credentialed attending provider with admitting privileges and that the patient meets or has met medical necessity to require an inpatient IPI level of care meeting a minimum of two midnights or is on the [facility] inpatient only procedure list (status C) due to: OM requiring IV abx * Lazaro Aaron, HIP HOP PERFORMERS - 05/21/2024 4:05 PM EDT Physical Therapy [...] with stable vital signs. Total Time: 34 (7202-4899) minutes. 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 Address: [address] [place] [id number] (home) Mobile: Telephone Information: Referring Provider: Anna [...] Medicine Hospital Medicine Red Team - Pager [phone] Associated attestation - Saba Spears MD - [...] mid 7s. Appreciate GI consult. Dispo to [facility] pending Hgb and EGD. I have examined the patient myself and personally reviewed all studies. In addition, I certify thatI am a D-H credentialed attending provider with admitting privileges and that the patient meets or has met medical necessity to require an inpatient IPI level of care meeting a minimum of two midnights or is on the [facility] inpatient only procedure list (status C) due [...] Galvan MD - 05/20/2024 6:20 AM EDT [facility] Medicine - Red Team Inpatient Progress [...] Pip-tazo and vanc c/w CTX Planning for [facility] central line, instead of PICC [...] Mihaela Galvan MD 05/20/2024 PGY-3, Internal Medicine [facility] Medicine Red Team - Pager [phone] Associated attestation - Saba Spears MD - [...] Ho PT, Doctor of Physical Therapy Pager: [phone] Physical Therapy Inpatient Rehabilitation Department * Rebeca [...] decreased insight into deficits 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 Computer Terminal Operator met with pt at bedside. Pt [...] unless consulted in the interim. [facility] Account Manager * Mihaela Galvan MD - 05/18/2024 7:20 [...] Medicine Hospital Medicine Red Team - Pager [phone] Associated attestation - Saba Spears MD - [...] of two midnights or is on the [facility] inpatient only procedure list (status C) due [...] Harrison MD - 05/17/2024 6:28 AM EDT [facility] Medicine - Red Team Inpatient Progress [...] Meds: insulin lispro 1-6 Units Subcutaneous Q4H [facility] insulin glargine (Lantus;Semglee) (100 unit/mL) subcutaneous injection [...] José Harrison MD 05/17/2024 PGY-3, Internal Medicine [facility] Medicine Red Team - Pager [phone] Associated attestation - Saba Spears MD - [...] 6.64) performed by Elkin Garcia MD at [facility] MAIN OR Active Non-Hospital Problems [...] [place] PT, Doctor of Physical Therapy Pager: [phone] Physical Therapy Inpatient Rehabilitation Department * Emmanuel [...] History: Housing: lives in a camper in [facility] Occupation: Former [employer], retired in 2016 [...] - Date/Time MRSA PCR Screen ([facility]/CGP/APD/NLH) [[id number]] Collected: 05/15/24 1615 Lab Status: Final result Specimen: Nasopharyngeal Swab Updated: 05/15/242012 MRSA Result Negative MRSA Interp -- Methicillin-resistant Staphylococcus aureus (MRSA) is NOT DETECTED The MRSA target DNA sequences (mec and SCC) were not detected within the acceptable ranges using the Xpert MRSA NxG on the GeneXpert Dx System ([employer]). This suggests the absence of MRSA in the patient specimen submitted for testing. This test is cleared by the U.S. Food and Drug Administration for clinical use and its performance characteristics have been verified by the [facility] at [facility]. This result does not rule out the presence of any other organisms. Rare false negative results may occur if MRSA is present at low concentrations with much higher concentrations of other organisms including MRSE or S. aureus with an empty SCC cassette. Comment: [VERIFIED DATE]05.15.24 Verified By:Lupe Jensen (Electronic Signature) Tissue Culture, Aerobic & Anaerobic Toe [[id number]] (Abnormal) Collected: 05/14/24 1133 Lab Status: Preliminary result Specimen: Toe Updated: 05/15/24 1212 Tissue culture [[id number]] (Abnormal) Collected: 05/14/24 1133 Lab Status: Preliminary result Specimen: Toe Updated: 05/15/24 121 Tissue Culture No growth to date. Gram Stain -- Few Neutrophils seen Rare Gram Positive Cocci in pairs seen Results called to and read back by Dr. Mihaela Galvan 05/14/24 14:57:00 Organism Gram Positive Cocci in pairs Anaerobic Culture [[id number]] Collected: 05/14/24 1133 Lab Status: Preliminary result Specimen: Toe Updated: 05/15/24 1124 Anaerobic Culture No anaerobic organisms isolated to date Blood culture [[id number]] Collected: 05/10/24 0232 Lab Status: Final result Specimen: Blood from Hand, Right Updated: 05/15/24 0701 Blood Culture No growth at 5 days. Skin/Superficial Wound Culture Toe [[id number]] (Abnormal) Collected: 05/10/24 0256 Lab Status: Final [...] follow. Please page ID Red team (pager [phone]) with questions or concerns. Emmanuel Corey, DO Internal Medicine PGY-2 Pager: [phone] Epic Chat 05/16/2024 Associated attestation - Rodriguez [...] from the original note were not included. [facility] Red Team Inpatient Progress Note [...] - Date/Time MRSA PCR Screen ([facility]/CGP/APD/NLH) [[id number]] Collected: 05/15/24 1615 Lab Status: Final result Specimen: Nasopharyngeal Swab Updated: 05/15/242012 MRSA Result Negative MRSA Interp -- Methicillin-resistant Staphylococcus aureus (MRSA) is NOT DETECTED The MRSA target DNA sequences (mec and SCC) were not detected within the acceptable ranges using the Xpert MRSA NxG on the GeneXpert Dx System ([employer]et). This suggests the absence of MRSA in the patient specimen submitted for testing. This test is cleared by the U.S. Food and Drug Administration for clinical use and its performance characteristics have been verified by the [facility] at [facility]. This result does not rule out the presence of any other organisms. Rare false negative results may occur if MRSA is present at low concentrations with much higher concentrations of other organisms including MRSE or S. aureus with an empty SCC cassette. Comment: [VERIFIED DATE]05.15.24 Verified By:Lupe Jensen (Electronic Signature) Tissue Culture, Aerobic & Anaerobic Toe [[id number]] (Abnormal) Collected: 05/14/24 113 Lab Status: Preliminary result Specimen: Toe Updated: 05/15/24 121 Tissue culture [[id number]] (Abnormal) Collected: 05/14/24 113 Lab Status: Preliminary result Specimen: Toe Updated: 05/15/24 121 Tissue Culture No growth to date. Gram Stain -- Few Neutrophils seen Rare Gram Positive Cocci in pairs seen Results called to and read back by Dr. Mihaela Galvan 05/14/24 14:57:00 Organism Gram Positive Cocci in pairs Anaerobic Culture [[id number]] Collected: 05/14/24 113 Lab Status: Preliminary result Specimen: Toe Updated: 05/15/24 1124 Anaerobic Culture No anaerobic organisms isolated to date Blood culture [[id number]] Collected: 05/10/24 0232 Lab Status: Final result Specimen: Blood from Hand, Right Updated: 05/15/24 0701 Blood Culture No growth at 5 days. Skin/Superficial Wound Culture Toe [[id number]] (Abnormal) Collected: 05/10/24 0256 Lab Status: Final [...] PGY-1, Internal Medicine Red Team - Pager [phone] Associated attestation - Treva Diaz MD - [...] likely suture removal on 06/05/24. Please page [phone] with any questions or concerns. Activity: NWB until forefoot offloading shoe DVT prophylaxis: per primary, rec 30 days LVX or ASA81 BID Closure: Sutures (to be removed at Orthopaedic follow-up appointment) Dressing: bacitracin, xeroform, 4x4, kerlix, DEREK x 7 days Antibiotics: per primary Isra Rodriguez IV, DO 05/16/2024 Future Appointments Date Time Provider Department Center 06/05/2024 4:00 PM Elkin Garcia MD [facility] ORTH 3C [facility] * Mihaela Galvan MD - 05/15/2024 6:41 AM EDT Images from the original note were not included. [facility] Medicine - Red Team Inpatient Progress [...] Procedure Component Value - Date/Time Tissue culture [[id number]] (Abnormal) Collected: 05/14/24 1133 Lab Status: Preliminary result Specimen: Toe Updated: 05/14/24 1459 Gram Stain -- Few Neutrophils seen Rare Gram Positive Cocci in pairs seen Results called to and read back by Dr. Mihaela Galvan 05/14/24 14:57:00 Organism Gram Positive Cocci in pairs Blood culture [[id number]] Collected: 05/10/24 0232 Lab Status: Preliminary result Specimen: Blood from Hand, Right Updated: 05/14/24 0701 Blood Culture No growth at 4 days. Skin/Superficial Wound Culture Toe [[id number]] (Abnormal) Collected: 05/10/24 0256 Lab Status: Final [...] PGY-1, Internal Medicine Red Team - Pager [phone] Associated attestation - Treva Diaz MD - [...] of two midnights or is on the [facility] inpatient only procedure list (status C) due [...] 4:00 PM Elkin Garcia MD [facility] ORTH 3C [facility] * Savannah Sy RN - 05/14/2024 1:45 [...] 4:00 PM Elkin Garcia MD [facility] ORTH 3C [facility] * Mihaela Galvan MD - 05/14/2024 6:04 AM EDT [facility] Medicine - Red Team Inpatient Progress [...] PGY-1, Internal Medicine Red Team - Pager [phone] Associated attestation - Treva Diaz MD - [...] of two midnights or is on the [facility] inpatient only procedure list (status C) due [...] OR for the above procedure. Please page [phone] if there are any concerns regarding OR [...] Galvan MD - 05/13/2024 6:28 AM EDT [facility] Medicine - Red Team Inpatient Progress [...] PGY-1, Internal Medicine Red Team - Pager [phone] Associated attestation - Treva Diaz MD - [...] of two midnights or is on the [facility] inpatient only procedure list (status C) due to: RLE cellulitis with concern forosteomyelitis. Continue on iv antibiotics and follow up with orthopedics regarding any surgical debridement . * Sarwat Marti - 05/12/2024 2:20 PM EDT Financial Service Representative Encounter Note Patient Name: Jossy Shanks : [id number] MR#: [id number] Admit Date: 05/10/2024 2:12 AM Hospital Day 2 days Narrative:Visited to introduce and assess acceptance of Financial Service Representative services. Patient was sleeping and I will visit an other time. Assessment: Intervention and Outcome: Follow-up: Time in Direct Care: Sarwat Marti 05/12/2024 * Mihaela Galvan MD - 05/12/2024 6:36 AM EDT [facility] Medicine - Red Team Inpatient Progress [...] PGY-1, Internal Medicine Red Team - Pager [phone] Associated attestation - Treva Diaz MD - [...] of two midnights or is on the [facility] inpatient only procedure list (status C) due to: RLE cellulitis with concern forosteomyelitis. Continue on iv antibiotics and discuss with orthopedics regarding any urgent need for surgical debridement. * Rodriguez Tian MD - 05/11/2024 10:23 AM EDT MEDICINE PAGER [phone] - [facility] Daily Progress Note Admit Date: [...] (Xarelto, dilt, coreg), admitted to [facility] on 05/10/2024 with LE cellulitis 2/2 right [...] CHO counting level 2 Last BM documented: ([employer]) DVT Prophylaxis: Heparin DOAC Code Status: Attempt [...] of two midnights or is on the [facility] inpatient only procedure list (status C) due [...] presented to a local emergency hedrick yesterday (ske89dd birthday) due to ongoing wound issues and [...] minimumof two midnights or is on the [facility] inpatient only procedure list (status C) due [...] on Lasix, HTN on Losartan,who presented to [facility] for rt LE cellulitis, transferred to [facility] for septic shock. Interval Events: - lactate [...] 05/10/2024 2:37 AM) Result Value WORKSTATION ID [id number] Impression Bibasilar atelectasis. Thank you for letting us participate in the care of this patient. If you are a health care provider and have any questions regarding this report, please contact the number below. For patients who have questions please contact the health long term acute care registered nurse that requested your imaging first. foot pending [...] - 05/10/2024 2:56 AM EDT [facility] TeleICU Initial Assessment Note I established audio/visual [...] whole blood, send to lab ([facility]) Result Value Lactate WB 2.3 (H) Prothrombin [...] clinical appearance is worrisome -Awaiting [facility] admission K+ level and Chem 7 -Would [...] IR History: None listed at [facility] Anticoagulation/Antiplatelet: None listed Labs: Lab Results Component [...] 69 y.o. male with OM requiring termite technician IV ABX presenting to Interventional Radiology for [...] 6.64) performed by Elkin Garcia MD at [facility] MAIN OR Social History and [...] IR History: None listed at [facility] Anticoagulation/Antiplatelet: None listed Labs: Lab Results Component [...] 6.64) performed by Elkin Garcia MD at [facility] MAIN OR Social History and [...] amputation. Isra Rodriguez IV, DO Orthopaedic Surgery [facility] * Carlotta Davis MD - 05/10/2024 [...] oxygen, HFpEF, HTN, admitted to [facility] on 05/10/2024, now on Hospital Day #0, for RLE cellulitis SUBJECTIVE History of Present Illness: Per admitting provider Jossy Shanks is a 69 y.o. year old male with PMH significant for IDDM, Afib rate controlled, CKD (bsl cr 1.5), COPD not on home oxygen, HFpEF, HTN who presented to [facility] for rt LE cellulitis, transferred to [facility] for RLE cellulitis after trauma to his [...] knee. Fevers & chills for last 24hrs. Boaz lightheaded, weak, & couldn't get out of [...] OSH departure. On arrival to [facility]: HR 96, o2 sat mid 90s on [...] limbs -chronic Motor Exam: Upper Limb Bilateral: Die Drawing Checker Strength 5/5 Wrist Flexion/Extension 5/5 Elbow Flexion/Extension [...] in the last 7068 hours. Invalid input(s): [id number] Recent Labs 05/10/24219 HA1C 5.9* Lipids: Heme: No results for input(s): LDH, HAPTOGLOBIN, URICACID in the last 168 hours. ABG (Arterial Blood Gas): No results found for: PHART, PO2ART, UIH3ITO, SZM9VBU VBG (Venous Blood Gas): No results for input(s): PHVEN, OJR0VSV, PO2VEN, UGD1TYD, BEVEN, BNI0KQB in the last 72hours. EKG: No results [...] 05/10/2024 2:37 AM) Result Value WORKSTATION ID [id number] Impression Bibasilar atelectasis. Thank you for letting us participate in the care of this patient. If you are a health care provider and have any questions regarding this report, please contact the number below. For patients who have questions please contact the health long term acute care registered nurse that requested your imaging first. Foot wwo Contrast Right (Exam End: 05/10/2024 5:51 AM) Result Value WORKSTATION ID [id number] Impression 1. Soft tissue irregularity of the [...] who have questions please contact the health long term acute care registered nurse that requested your imaging first. Medications: Scheduled: [...] (Xarelto, dilt, coreg), admitted to [facility] on 05/10/2024, now on Hospital Day #0, [...] Internal Medicine PGY2 Medicine Team: Red, Pager #[phone] Associated attestation - Treva Diaz MD - [...] home oxygen, HFpEF, HTN who presented to [facility] for rt LE cellulitis, transferred to [facility] for septic shock. Reports end of March [...] knee. Fevers & chills for last 24hrs. Boaz lightheaded, weak, & couldn't get out of [...] OSH departure. On arrival to [facility]: HR 96, o2 sat mid 90s on [...] mobilizes w/out assistance. Darion Morgan is DPOA; [phone] Physical Exam: Vitals: Last value Range last [...] Medicine, PGY2 05/10/2024 MICU Blue Team Pager #[phone] documented in this encounter Procedure Notes * Juan José Flowers MD - 05/21/2024 11:49 AM EDT IR PROCEDURE NOTE Procedure: Tunneled central venous catheter placement. Indication for Procedure: Per Guanako Saldanajaren Shanks is a 69 y.o. male with PMH of CKD, DM, COPD, A.fib, admitted for RLE cellulitis andosteomyelitis s/p 2ng toe amputation requiring termite technician IV antibiotic administration who presents to Interventional [...] & Follow-up Care: Contact information for follow-up [facility] [address] [place] [address] [place] [address] Transportation: family or friend will provide Wheelchair [...] through: Primary Insurance: [employer] MANAGED MEDICARE Payor: [employer] MANAGED MEDICARE / Plan: [facility] MANAGED MEDICARE COMPLETE / Product Type: *No Product type* / Secondary Insurance: N/A Prescription Coverage: Yes This plan was formulated with input from patient and team. All are in agreement with plan. Shirley Samuel RN CM Project Management- Medicine Office of Care Management Ext: [phone] Pager: [phone] * Plan of Care - Juan José [...] and were able to stop the bleeding. Computer Terminal Operator carolyn a hemoglobin when patient got [...] Operative Note Patient Name: Jossy Shanks : [id number] MR#: [id number] Case Date: 05/22/2024 Surgeon: Surgeons and Role: [...] Access Non-Dialysis 05/21/2024 Juan José Flowers MD [facility] INTERVENTIONL RAD PRO AMPUTATION METATARSAL+TOE, SINGLE Right 05/14/2024 AMPUTATION, TRANSMETATARSAL TOE, ONE TOE (WRVU 6.64) performed by Elkin Garcia MD at [facility] MAIN OR SOCIAL HX: Social [...] who have questions, please contact the health long term acute care registered nurse that requested your imaging first. Teofilo Ruiz, [...] who have questions please contact the health long term acute care registered nurse that requested your imaging first. Chest One View Final Result Bibasilar atelectasis. Thank you for letting us participate in the care of this patient. If you are a health care provider and have any questions regarding this report, please contact the number below. For patients who have questions please contact the health long term acute care registered nurse that requested your imaging first. SCOPY: Reports and images personally reviewed in H OSH RECORDS: Obtained and personally reviewed ASSESSMENT & PLAN: 69 y.o. male with past medical history of [facility] of HTN, HFpEF, CKD (bsl Cr ~1.5), [...] significant anemia. Tl Steele MD [facility] Gastroenterology * Plan of Care - Pretty [...] Pain Flowsheets (Taken 05/20/2024802) Pain Management Interventions: tcesin-tjn-ofann dosing utilized breathing exercises care clustered diversional [...] discharge planning needs. provide the [facility], Office of Care Management letter from the Datawarehouse Developer pertaining to rehab referrals. provide a letter describing our affiliations within the [facility] and educate about their right to choose where referrals are sent. provide the CMS Star Quality Rating handout. review the different levels of rehab including SNF, swing, and acute. provide a list of facilities within their preferred geographic area. request that they provide at least three choices for referral. They have requested referrals to: [facility] [address] [place] [address] [facility] [address] [place] [address] -OFFERED BED, PENDING INSURANCE AUTHORIZATION 05/20 130[address] [facility] [address] [place] [address] [facility] [address] [place] [address] [facility]) [address] [place] [address] (Accepts pts only after exhausting all other local SNF options) Does patient have COVID vaccine card: Yes; Copy obtained: No Note routed to a [employer] who will communicate referrals to facilities and provide any required information. Transportation: family or friend will provide Barriers to discharge: Discharge planning Plan going forward: Referrals routed for SNF/Swing. Care Management will continue to follow and assist with discharge planning and coordination of care as indicated. Anticipated Date of Discharge: 05/21/2024 Shirley Samuel RN CM Project Management- Medicine Office of Care Management Ext: [phone] Pager: [phone] * Plan of Care - Pretty Ramirez [...] shock at his time of transfer to [facility]. Creatinine on admission was 3.94 mg/dL, [...] 6.64) performed by Elkin Garcia MD at [facility] MAIN OR insulin glargine-ygfn (Semglee) [...] Flowsheets (Taken 05/18/2024 0838) Pain Management Interventions: fluelm-rwd-sfyuz dosing utilized care clustered diversional activity provided [...] television Taken 05/15/2024 1825 Pain Management Interventions: elhnvl-dcu-hzryz dosing utilized position adjusted pillow support provided [...] smartphone Taken 05/15/2024 1825 Pain Management Interventions: zgfazo-qrg-pazci dosing utilized position adjusted pillow support provided [...] 6.64) performed by Elkin Garcia MD at [facility] MAIN OR Active Non-Hospital Problems [...] Perception: WNL / WFL and 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 Total Minutes, Occupational Therapy: 90 (evaluation ([id number])) 2017 OT Evaluation Code Rationale: Diagnosis & [...] and measurable assessment of functional outcome. Pager: [phone] Penny Rodriguez OT 05/16/2024 Occupational Therapy Rehabilitation [...] have. Alternately, during off-hours you may call [phone] to contact a pharmacist. * Consult Note [...] vasopressors, and then transferred to [facility] for further management. 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 05/14. Reports a hx of cellulitis in the Left leg back in 2009 for which he states he did a course of 6 week son IV abx from [facility]. Has gotten cellulitis about half a dozen times in total. Review of Systems: Pertinent positives and negatives noted in HPI. 14 point ROS otherwise negative except noted in HPI. Allergies/Adverse drug reactions: No Known Allergies Family History: Family History No data available Social History: Housing: lives in a camper in [facility] Occupation: Former [employer], retired in 2017 [...] Procedure Component Value - Date/Time Blood culture [[id number]] Collected: 05/10/24 0232 Lab Status: Final result Specimen: Blood from Hand, Right Updated: 05/15/24 0701 Blood Culture No growth at 5 days. Tissue culture [[id number]] (Abnormal) Collected: 05/14/24 1133 Lab Status: Preliminary result Specimen: Toe Updated: 05/14/24 1459 Gram Stain -- Few Neutrophils seen Rare Gram Positive Cocci in pairs seen Results called to and read back by Dr. Mihaela Galvan 05/14/24 14:57:00 Organism Gram Positive Cocci in pairs Skin/Superficial Wound Culture Toe [[id number]] (Abnormal) Collected: 05/10/24 0256 Lab Status: Final [...] follow. Please page ID Red team (pager [phone]) with questions or concerns. Emmanuel Corey, DO Internal Medicine PGY-2 Pager: [phone] Epic Chat 05/15/2024 Associated attestation - Rodriguez [...] Home Health Services: IV Therapy Agency Referrals: [place] [address] or Home Care Orders: 1. IV Antibiotics: [...] to discharge: Discharge planning Plan going forward: [facility] routed and pended. [facility] routed. Care Management will continue to follow and assist with discharge planning and coordination of care as indicated. Anticipated Date of Discharge: 05/19/2024 Shirley Samuel RN CM Project Management- Medicine Office of Care Management Ext: [phone] Pager: [phone] * Plan of Care - Christine Ronquillo [...] Pt in agreement. Pt POC BG @ 0115 223. Pt denies pain. Pt resting in [...] Operative Note Patient Name: Jossy Shanks : [id number] MR#: [id number] Case Date: 05/14/2024 Surgeon: Surgeons and Role: [...] - 05/14/2024 11:16 AM EDT [facility] Operative Note Patient Name: Jossy Shanks : [id number] MR#: [id number] Case Date: 05/14/2024 Surgeon: Surgeons and Role: [...] can weight-bear as tolerated and heel off loader helper We will follow his wounds while he is here in the hospital. Surgical Infection Prevention Bundle Used? N/A Attestation: Case Date: 05/14/2024 I was present and I participated during the entire procedure (does not need to include opening and closing). Elkin Garcia MD 05/14/2024 * Consult Note - Hakeem Villa [facility] - 05/14/2024 7:15 AM EDT [facility] Pharmacokinetics Note Drug: Vancomycin Pharmacokinetic target: AUC24 (range) 400-600 mg/L.hr Jossy Shanks is a 69-year-old male receiving intermittent Vancomycin doses Recent measured serum creatinine values: 05/14/2024 05:01 1.56 mg/dL 05/13/2024 05:29 1.53 mg/dL 05/12/2024 04:45 2.03 mg/dL Assessment: Analysis of the most recent level(s) using ErydelX gives the following patient-specific pharmacokinetic parameters: CL: [...] (Xarelto, dilt, coreg), admitted to [facility] on 05/10/2024 with LE cellulitis 2/2 right foot trauma. Reason for intervention: Diet order question - what type of carb control diet does pt need? Nutrition Recommendations: Carb control level 3 diet Monitor po intake Monitor blood glucose levels Monitor weight trends I was able to discuss plan with provider Medicine Pager Red [phone] . Nutrition consult received regarding what type of carb control diet pt needs. Estimated nutrition needs based on ideal body weight of 89kg: Calories: 4148-6951 calories (20-25kcal/kg) Protein: 89-107g (1-1.2g/kg) Nutrition to [...] border dressing. (Melgisorb Ag 6x6 PS # [id number]) (Melgisorb Ag 4x4 PS # [id number]) Sacrum/ischium: open to air, utilize Z-guard if patient begins to have breakdown Supplies left at the bedside: 1 sheet of Melgisorb Ag, wound cleanser Wound Care will complete the consult at this time. If there are further issues please re-consult via eD-H. Discussed plan with: RN: Don Please contact Keeley Russell RN on eDH secure chat or the wound care team on pager [phone] with skin and wound care concerns or [...] surrogate would be surrogate decision maker per [place] surrogate decision making law. (Only good for 180 days) Son CONRADO Any patient receiving care in [place] must abide by [place] law. The hierarchy for surrogate decision making [...] Current DME: none Home Address listed as: [address] [place] [address] Pt is not currently residing here. Current address is as below: [place] [id number] Social & Family Supports: All names listed below confirmed with patient as current and correct Extended Emergency Contact Information Primary Emergency Contact: Eddie Shanks Mobile Relation: Son/Zjzsvzxb-my-qea Secondary Emergency Contact: Gifty Bucio [facility] Relation: Mother Current Care Provided [...] Pertinent/Service Specific Information: Health/Prescription Coverage: Primary Insurance: [employer] [facility] Payor: [facility] [employer] [facility] / Plan: [facility] PPO / Product Type: *No Product type* / Secondary Insurance: N/A ; Prescription Coverage: Yes Preferred Pharmacy: [id number] - [place], [place] - [address] [facility] [facility] [facility] [address] [facility] [facility] [address] Primary Care Provider listed: None None Pt does have PCP in [facility] Patient/Caregiver Goals of Treatment: Potential Needs for Transition of Care: none, home health care Agency Referrals: I have met with the patient to: discuss discharge planning needs. provide the [facility], Office of Care Management letter from the Datawarehouse Developer pertaining to rehab referrals. provide a letter describing our affiliations within the [facility] and educate about their right to choose where referrals are sent. provide a list of Home Health Agencies / Durable Medical Equipment vendors which serve their preferred geographic area. provided patient with [facility] Star Quality Rating handout. They have requested referrals to: [facility] [address] [place] [address] Note routed to a [employer] who will communicate referrals to facilities and [...] wait list for housing (an apartment) in [place], [place]; ETA for move-in is 4-8weeks. He does not feel that his local family members would be able to house him in the interim andexpresses that he is comfortable in his camper, which has amenities. He is fully independent at baseline but has used [facility] health in the past; a referral [...] Clinical Pharmacist Note - VancFD Jossy Shanks [id number] Jossy Shanks is a 69 y.o. [...] Alternately, during off-hours (9p-) you may call [phone] to contact a pharmacist. Rodriguez Sinclair RPH * Consult Note - Tyrone Rehamn MD - 05/10/2024 3:35 AM EDT Orthopaedic [...] intact shoulder abduction, elbow flexion/extension, wrist flexion/extension, asbestos cement sheet supervisor, EPL, AIN, IO Brisk capillary refill distally [...] intact shoulder abduction, elbow flexion/extension, wrist flexion/extension, asbestos cement sheet supervisor, EPL, AIN, IO Brisk capillary refill distally [...] changes develop in his course. Please page [phone] following completion of requestedimaging and studies. - Activity: no restrictions at this time - DVT prophylaxis: per primary; recommend lovenox 30 mg BID - Antibiotics: per ID - Imaging / studies needed: MRI wwo contrast, ABIs, ESR, CRP Tyrone Rehman MD Orthopaedic Surgery, [id number] documented in this encounter Plan of Treatment Upcoming Encounters Date Type Department Care Team (Late st Contact Info) Description 06/10/2024 10:30 AM EDT [place] [address] Elkin Garcia MD [facility] [address] [place] [address] Scheduled Referrals Name Type Priority Associated Diagnoses [...] EDT Upper Gi Endoscopy, W/Dir Submuc Inj (88192) 05/22/2024 4:39 PM EDT ? melena Upper Gi Endoscopy, Ctrl Bleed (55205) 05/22/2024 4:39 PM EDT ? melena Upper GI Endoscopy, Diagnostic (47420) 05/22/2024 4:39 PM EDT ? melena UPPER [...] OF CARE TEST ORDERABLES Performing Organization Address City/State/[facility] Co de Phone Number [facility] [place] [address] * (ABNORMAL) Basic Metabolic Panel (05/23/2024 9:46 [...] CHEMISTRY ORDERABLE S [facility] [place] [address] * (ABNORMAL) CBC (with Diff) (05/23/2024 9:46 [...] % 81.6 % 05/23/2024 10:52 AM EDT [facility] Neutrophil Absolute 10.34(H) 1.70 [...] HEMATOLOGY ORDERABL ES [facility] [place] [address] * POC, GLUCOSE (05/23/2024 7:44 AM EDT) Glucometer, POC 127 65 - 199 mg/dL 05/23/2024 7:44 AM EDT [facility] Comment:Supplemental ranges: <140 mg/dL before meals <180 mg/dL all other times of the day. Blood CAPILLARY BLOOD / Unknown 05/23/2024 7:44 AM EDT 05/23/2024 7:45 AM EDT Saba Spears MD POINT OF CARE TEST ORDERABLES Performing Organization Address City/[facility]/ZIP Co de Phone Number [facility] [place] [place] [address] * Prepare RBC (05/23/2024 3:49 AM EDT) Status Information Transfused [facility] [facility] Product Identification RBC [facility] Unit Number [id number] [facility] Product Code [id number] [facility] Unit Blood Type OPOS [facility] Specimen Expiration Date [id number] [facility] Volulme 350 [facility] Issue Date / Time [id number] [facility] Blood 05/22/2024 12: 42 PM EDT Saba Spears MD BLOOD BANK PRODUCT ORDERABLES Performing Organization Address City/[facility]/ZIP Co de Phone Number [facility] [place] [address] * POC, GLUCOSE (05/23/2024 3:49 AM EDT) Glucometer, POC 152 65 - 199 mg/dL 05/23/2024 3:49 AM EDT [facility] Comment:Supplemental ranges: <140 mg/dL before meals <180 mg/dL all other times of the day. Blood CAPILLARY BLOOD / Unknown 05/23/2024 3:49 AM EDT 05/23/2024 3:49 AM EDT Saba Spears MD POINT OF CARE TEST ORDERABLES Performing Organization Address City/[facility]/ZIP Co de Phone Number [facility] [place] [address] * POC, GLUCOSE (05/23/2024 1:26 AM EDT) [facility] Glucometer, POC 138 65 - 199 mg/dL 05/23/2024 1:26 AM EDT [facility] Comment:Supplemental ranges: <140 mg/dL before meals <180 mg/dL all other times of the day. Blood CAPILLARY BLOOD / Unknown 05/23/2024 1:26 AM EDT 05/23/2024 1:26 AM EDT Saba Spears MD POINT OF CARE TEST ORDERABLES Performing Organization Address [facility]/ZIP Co de Phone Number [facility] [place] [address] * (ABNORMAL) Scan, Peripheral Blood (05/23/2024 1:19 AM EDT) [facility] RBC Morphology Abnormal 05/23/2024 3:44 AM EDT [facility] Platelet Estimate Increased(A) Normal 05/23/2024 3:44 AM EDT [facility] Ovalocytes 1-5 /HPF 05/23/2024 3:44 AM EDT [facility] Sofía cells 1-5 /HPF 05/23/2024 3:44 AM EDT [facility] Blood VENOUS BLOOD SPECIMEN / Unknown IP Care Team Draw / Unknown 05/23/2024 1:19 AM EDT 05/23/2024 2:05 AM EDT Mary De La Fuente MD HEMATOLOGY ORDERAB LES [facility] [place] [place] [address] * Magnesium (05/23/2024 1:19 AM EDT) Magnesium 0.86 0.69 - 1.07 mMol/L 05/23/2024 2:40 AM EDT [facility] Blood VENOUS BLOOD SPECIMEN / Unknown IP Care Team Draw / Unknown 05/23/2024 1:19 AM EDT 05/23/2024 2:05 AM EDT Mary De La Fuente MD CHEMISTRY ORDERABL ES Performing Organization Address City/[facility]/ZIP Co de Phone Number [facility] [place] [address] * (ABNORMAL) Phosphorus (05/23/2024 1:19 AM EDT) Phosphorus 5.8(H) 2.5 - 4.5 mg/dL 05/23/2024 2:40 AM EDT [facility] Blood VENOUS BLOOD SPECIMEN / Unknown IP Care Team Draw / Unknown 05/23/2024 1:19 AM EDT 05/23/2024 2:05 AM EDT Mary De La Fuente MD CHEMISTRY ORDERABL ES Performing Organization Address City/[facility]/ZIP Co de Phone Number [facility] [place] [address] * (ABNORMAL) Basic Metabolic Panel (non-fasting) (05/23/2024 [...] Foundation Fasting Status 05/23/2024 3:34 AM T [facility] Blood VENOUS BLOOD SPECIMEN / Unknown IP Care Team Draw / Unknown 05/23/2024 1:19 AM EDT 05/23/2024 2:05 AM EDT Mary De La Fuente MD CHEMISTRY ORDERABL ES [facility] [place] [address] * (ABNORMAL) CBC (with Diff) (05/23/2024 1:19 [...] Gran % 0.5 % 3:44 AM EDT [facility] [...] MD HEMATOLOGY ORDERAB LES Performing Organization Address City/[facility]/ZIP Co de Phone Number [facility] [place] [place] [address] * POC, GLUCOSE (05/22/2024 8:21 PM EDT) Glucometer, POC 152 65 - 199 mg/dL 05/22/2024 8:21 PM EDT [facility] Comment:Supplemental ranges: <140 mg/dL before meals <180 mg/dL all other times of the day. Blood CAPILLARY BLOOD / Unknown 05/22/2024 8:21 PM EDT 05/22/2024 8:21 PM EDT Saba Spears MD POINT OF CARE TEST ORDERABLES [facility] [place] [address] * POC, GLUCOSE (05/22/2024 6:20 PM EDT) Glucometer, POC 130 65 - 199 mg/dL 05/22/2024 6:20 PM EDT [facility] Comment:Supplemental ranges: <140 mg/dL before meals <180 mg/dL all other times of the day. Blood CAPILLARY BLOOD / Unknown 05/22/2024 6:20 PM EDT 05/22/2024 6:21 PM EDT Saba Spaers MD POINT OF CARE TEST ORDERABLES [facility] [place] [place] [address] * Transfuse RBC (05/22/2024 2:45 PM EDT) Saba Spears MD NURSING TREATMENT O RDERABLES - BLOOD ADMIN * UPPER GI ENDOSCOPY (05/22/2024 12:48 PM EDT) UPPER GI ENDOSCOPY [facility] ___ Procedure Date: 05/22/2024 12:48 PM ? Patient Name: Jossy Shanks ? N: [id number] ? Date of : 1955 ? Age: 69 ? Order #: [id number] ? Instrument Name: [id number] ? ___ Procedure: ? Upper GI endoscopy [...] FOUND) (05/22/2024 11:18 AM EDT) [facility] Recheck Progress Complete 05/22/2024 1:01 PM EDT [facility] Blood VENOUS BLOOD SPECIMEN / Unknown IP Care Team Draw / Unknown 05/22/2024 11:18 AM EDT 05/22/2024 11:27 AM EDT Saba Spears MD BLOOD BANK LAB FADY GAO [facility] [place] [address] * Type and screen ([facility]CGP/TARA) (05/22/2024 11:18 AM EDT) Pathologist [facility] ABOR Type O POSITIVE 05/22/2024 12:31 PM EDT [facility] PATIENT HISTORY Found 05/22/2024 12:31 PM EDT [facility] Expires at [id number] on: 05-22-2024 05/22/2024 12:31 PM EDT [facility] ANTIBODY SCREEN AUTOMATED Negative 05/22/2024 12:31 PM EDT [facility] T&S only valid at [facility] 05/22/2024 12:31 PM EDT [facility] Blood VENOUS BLOOD SPECIMEN / Unknown IP Care Team Draw / Unknown 05/22/2024 11:18 AM EDT 05/22/2024 11:27 AM EDT Narrative [facility] - 05/22/2024 12:31 PM EDT This Type and Screen result is only valid at the [facility] Saba Spears MD BLOOD BANK LAB ORDE RABLES Performing Organization Address City/[facility]/ZIP Co de Phone Number [facility] [place] [address] * (ABNORMAL) Hemoglobin and Hematocrit, blood (05/22/2024 [...] HEMATOLOGY ORDERABL ES [facility] [place] [address] * POC, GLUCOSE (05/22/2024 11:14 AM EDT) Glucometer, POC 126 65 - 199 mg/dL 05/22/2024 11:17 AM EDT [facility] Comment:Supplemental ranges: <140 mg/dL before meals <180 mg/dL all other times of the day. Blood CAPILLARY BLOOD / Unknown 05/22/2024 11:14 AM EDT 05/22/2024 11:18 AM EDT Saba Spaers MD POINT OF CARE TEST ORDERABLES [facility] [place] [place] [address] * POC, GLUCOSE (05/22/2024 8:07 AM EDT) Glucometer, POC 132 65 - 199 mg/dL 05/22/2024 8:08 AM EDT [facility] Comment:Supplemental ranges: <140 mg/dL before meals <180 mg/dL all other times of the day. Blood CAPILLARY BLOOD / Unknown 05/22/2024 8:07 AM EDT 05/22/2024 8:08 AM EDT Saba Spears MD POINT OF CARE TEST ORDERABLES Performing Organization Address City/[facility] Co de Phone Number [facility] [place] [address] * (ABNORMAL) Hepatic Function Panel (05/22/2024 5:18 [...] MD CHEMISTRY ORDERABLE S Performing Organization Address City/[facility]/ZIP Co de Phone Number [facility] [place] [address] * Magnesium (05/22/2024 5:18 AM EDT) Magnesium 0.93 0.69 - 1.07 mMol/L 05/22/2024 6:16 AM EDT [facility] Blood VENOUS BLOOD SPECIMEN / Unknown IP Care Team Draw / Unknown 05/22/2024 5:18 AM EDT 05/22/2024 5:45 AM EDT Mary De La Fuente MD CHEMISTRY ORDERABL ES Performing Organization Address [facility] Co de Phone Number [facility] [place] [place] [address] * (ABNORMAL) Phosphorus (05/22/2024 5:18 AM EDT) Phosphorus 5.8(H) 2.5 - 4.5 mg/dL 05/22/2024 6:16 AM EDT [facility] Blood VENOUS BLOOD SPECIMEN / Unknown IP Care Team Draw / Unknown 05/22/2024 5:18 AM EDT 05/22/2024 5:45 AM EDT Mary De La Fuente MD CHEMISTRY ORDERABL ES Performing Organization Address City/[facility]/ZIP Co de Phone Number [facility] [place] [address] * (ABNORMAL) Basic Metabolic Panel (05/22/2024 5:18 [...] Fasting Status No 05/22/2024 6:16 AM EDT [facility] Blood VENOUS BLOOD SPECIMEN / Unknown IP Care Team Draw / Unknown 05/22/2024 5:18 AM EDT 05/22/2024 5:45 AM EDT Mary De La Fuente MD CHEMISTRY ORDERABL ES [facility] [place] [address] * (ABNORMAL) CBC (with Diff) (05/22/2024 5:18 AM EDT) White Blood Cell 14.70(H) 4.00 - 9.50 x10(3)/mc L 05/22/2024 5:52 AM EDT [facility] Red Blood Cell 2.37(L) 4.58 - 5.54 x10(6)/mc L 05/22/2024 5:52 AM EDT [facility] Hemoglobin 7.2(L) 13.7 - 16.5 g/dL 05/22/2024 5:52 AM T [facility] Hematocrit 22.1(L) 40.5 - 48.5 % 05/22/2024 5:52 AM T [facility] Mean Cell Volume 93.2(H) 82.9 - 93.1 fL 05/22/2024 5:52 AM T [facility] Mean [...] 0.04 x10(3)/mc L 05/22/2024 5:52 AM EDT [facility] Blood VENOUS BLOOD SPECIMEN / Unknown IP Care Team Draw / Unknown 05/22/2024 5:18 AM EDT 05/22/2024 5:45 AM EDT Mary De La Fuente MD HEMATOLOGY ORDERAB LES Performing Organization Address [facility] Co de Phone Number [facility] [place] [address] * POC, GLUCOSE (05/22/2024 3:50 AM EDT) Glucometer, POC 140 65 - 199 mg/dL 05/22/2024 3:50 AM EDT [facility] Comment:Supplemental ranges: <140 mg/dL before meals <180 mg/dL all other times of the day. Blood CAPILLARY BLOOD / Unknown 05/22/2024 3:50 AM EDT 05/22/2024 3:50 AM EDT Saba Spears MD POINT OF CARE TEST ORDERABLES Performing Organization Address [facility] de Phone Number [facility] [place] [address] * Scan Doc: Lab (05/22/2024 12:00 AM [...] OF CARE TEST ORDERABLES Performing Organization Address [facility] Co de Phone Number [facility] [place] [address] * POC, GLUCOSE (05/21/2024 7:49 PM EDT) Glucometer, POC 161 65 - 199 mg/dL 05/21/2024 7:49 PM EDT [facility] Comment:Supplemental ranges: <140 mg/dL before meals <180 mg/dL all other times of the day. Blood CAPILLARY BLOOD / Unknown 05/21/2024 7:49 PM EDT 05/21/2024 7:49 PM EDT Saba Spears MD POINT OF CARE TEST ORDERABLES Performing Organization Address [facility] Co de Phone Number [facility] [place] [address] * POC, GLUCOSE (05/21/2024 5:18 PM EDT) Glucometer, POC 152 65 - 199 mg/dL 05/21/2024 5:18 PM EDT [facility] Comment:Supplemental ranges: <140 mg/dL before meals <180 mg/dL all other times of the day. Blood CAPILLARY BLOOD / Unknown 05/21/2024 5:18 PM EDT 05/21/2024 5:18 PM EDT Saba Spears MD POINT OF CARE TEST ORDERABLES Performing Organization Address City/[facility] Co de Phone Number [facility] [place] [address] * (ABNORMAL) Hemogram (05/21/2024 3:00 PM EDT) [...] PM EDT 05/21/2024 3:36 PM EDT Saba Speasr MD HEMATOLOGY ORDERABL ES Performing Organization Address City/[facility]/ZIP Co de Phone Number [facility] [place] [address] * POC, GLUCOSE (05/21/2024 12:39 PM EDT) Glucometer, POC 144 65 - 199 mg/dL 05/21/2024 12:39 PM EDT [facility] Comment:Supplemental ranges: <140 mg/dL before meals <180 mg/dL all other times of the day. Blood CAPILLARY BLOOD / Unknown 05/21/2024 12:39 PM EDT 05/21/2024 12:39 PM EDT Saba Spears MD POINT OF CARE TEST ORDERABLES Performing Organization Address [facility] Co de Phone Number [facility] [place] [address] * IR Tunneled Central Venous Access Non-Dialysis [...] guidance and a 4Fr sheath placed. ??[address] injection compatible single lumen catheter was [...] the IR Nurse. ? Saba Spears MD [facility] IR ORDERABLES * POC, GLUCOSE (05/21/2024 9:12 AM EDT) [facility] Signature Glucometer, POC 144 65 - 199 mg/dL 05/21/2024 9:12 AM EDT [facility] Comment:Supplemental ranges: <140 mg/dL before meals <180 mg/dL all other times of the day. Blood CAPILLARY BLOOD / Unknown 05/21/2024 9:12 AM EDT 05/21/2024 9:12 AM EDT Saba Spears MD POINT OF CARE TEST ORDERABLES [facility] [place] [place] [address] * POC, GLUCOSE (05/21/2024 8:32 AM EDT) Glucometer, POC 135 65 - 199 mg/dL 05/21/2024 8:32 AM EDT [facility] Comment:Supplemental ranges: <140 mg/dL before meals <180 mg/dL all other times of the day. Blood CAPILLARY BLOOD / Unknown 05/21/2024 8:32 AM EDT 05/21/2024 8:32 AM EDT Saba Spears MD POINT OF CARE TEST ORDERABLES [facility] [place] [place] [address] * (ABNORMAL) Hemogram (05/21/2024 8:27 AM EDT) White Blood Cell 15.77(H) 4.00 - 9.50 x10(3)/mc L 05/21/2024 8:54 AM EDT [facility] Red Blood Cell 2.47(L) 4.58 - 5.54 x10(6)/mc L 05/21/2024 8:54 AM EDT [facility] Hemoglobin 7.5(L) 13.7 - 16.5 g/dL 05/21/2024 8:54 AM EDT [facility] Hematocrit 23.0(L) 40.5 [...] MD HEMATOLOGY ORDERABL ES Performing Organization Address City/[facility]/ZIP Co de Phone Number [facility] [place] [address] * (ABNORMAL) CRP, acute inflammation (05/21/2024 4:58 AM EDT) C-Reactive Protein 14.1(H) <=4.9 mg/L 05/21/2024 10:05 AM EDT [facility] Blood VENOUS BLOOD SPECIMEN / Unknown IP Care Team Draw / Unknown 05/21/2024 4:58 AM EDT 05/21/2024 5:17 AM EDT Saba Spears MD CHEMISTRY ORDERABLE S [facility] [place] [address] * Magnesium (05/21/2024 4:58 AM EDT) Magnesium 0.99 0.69 - 1.07 mMol/L 05/21/2024 5:51 AM EDT [facility] Blood VENOUS BLOOD SPECIMEN / Unknown IP Care Team Draw / Unknown 05/21/2024 4:58 AM EDT 05/21/2024 5:17 AM EDT Mary De La Fuente MD CHEMISTRY ORDERABL ES Performing Organization Address City/[facility]/ZIP Co de Phone Number [facility] [place] [address] * (ABNORMAL) Phosphorus (05/21/2024 4:58 AM EDT) Phosphorus 6.2(H) 2.5 - 4.5 mg/dL 05/21/2024 5:51 AM EDT [facility] Blood VENOUS BLOOD SPECIMEN / Unknown IP Care Team Draw / Unknown 05/21/2024 4:58 AM EDT 05/21/2024 5:17 AM EDT Mary De La Fuente MD CHEMISTRY ORDERABL ES Performing Organization Address City/[facility]/ZIP Co de Phone Number [facility] [place] [address] * (ABNORMAL) Basic Metabolic Panel (05/21/2024 4:58 [...] Fasting Status No 05/21/2024 5:51 AM T [facility] Blood VENOUS BLOOD SPECIMEN / Unknown IP Care Team Draw / Unknown 05/21/2024 4:58 AM EDT 05/21/2024 5:17 AM EDT Mary De La Fuente MD CHEMISTRY ORDERABL ES [facility] [place] [address] * (ABNORMAL) CBC (with Diff) (05/21/2024 4:58 [...] 6.10 x10(3)/mc L 05/21/2024 5:28 AM EDT [facility] Lymph % 6.1 % 05/21/2024 5:28 AM EDT [facility] Lymph Absolute 0.89(L) 0.90 [...] HEMATOLOGY ORDERAB LES [facility] [place] [address] * POC, GLUCOSE (05/21/2024 3:45 AM EDT) [facility] Signature Glucometer, POC 155 65 - 199 mg/dL 05/21/2024 3:45 AM EDT [facility] Comment:Supplemental ranges: <140 mg/dL before meals <180 mg/dL all other times of the day. Blood CAPILLARY BLOOD / Unknown 05/21/2024 3:45 AM EDT 05/21/2024 3:46 AM EDT Saba Spears MD POINT OF CARE TEST ORDERABLES Performing Organization Address City/[facility]/ZIP Co de Phone Number [facility] [place] [address] * POC, GLUCOSE (05/20/2024 11:44 PM EDT) Glucometer, POC 132 65 - 199 mg/dL 05/20/2024 11:44 PM EDT [facility] Comment:Supplemental ranges: <140 mg/dL before meals <180 mg/dL all other times of the day. Blood CAPILLARY BLOOD / Unknown 05/20/2024 11:44 PM EDT 05/20/2024 11:44 PM EDT Saba Spears MD POINT OF CARE TEST ORDERABLES Performing Organization Address [facility] Co de Phone Number [facility] [place] [address] * POC, GLUCOSE (05/20/2024 7:24 PM EDT) Glucometer, POC 166 65 - 199 mg/dL 05/20/2024 7:24 PM EDT [facility] Comment:Supplemental ranges: <140 mg/dL before meals <180 mg/dL all other times of the day. Blood CAPILLARY BLOOD / Unknown 05/20/2024 7:24 PM EDT 05/20/2024 7:25 PM EDT Saba Spears MD POINT OF CARE TEST ORDERABLES Performing Organization Address City/[facility]/ZIP Co de Phone Number [facility] [place] [address] * POC, GLUCOSE (05/20/2024 4:24 PM EDT) Glucometer, POC 170 65 - 199 mg/dL 05/20/2024 4:24 PM EDT [facility] Comment:Supplemental ranges: <140 mg/dL before meals <180 mg/dL all other times of the day. Blood CAPILLARY BLOOD / Unknown 05/20/2024 4:24 PM EDT 05/20/2024 4:24 PM EDT Saba Spears MD POINT OF CARE TEST ORDERABLES [facility] [place] [place] [address] * (ABNORMAL) Hemogram (05/20/2024 12:35 PM EDT) [...] MD HEMATOLOGY ORDERABL ES Performing Organization Address City/[facility]/ZIP Co de Phone Number [facility] [place] [address] * POC, GLUCOSE (05/20/2024 11:52 AM EDT) [facility] Glucometer, POC 176 65 - 199 mg/dL 05/20/2024 11:52 AM EDT [facility] Comment:Supplemental ranges: <140 mg/dL before meals <180 mg/dL all other times of the day. Blood CAPILLARY BLOOD / Unknown 05/20/2024 11:52 AM EDT 05/20/2024 11:52 AM EDT Saba Spears MD POINT OF CARE TEST ORDERABLES [facility] [place] [place] [address] * US Retroperitoneal Complete (05/20/2024 10:36 AM EDT) WORKSTATION ID [id number] RAD Anatomical Region Laterality Modality Abdomen Ultrasound [...] who have questions, please contact the health long term acute care registered nurse that requested your imaging first. ?Teofilo Ruiz, Staff Physician Electronically Signed Final Report ?? 05/20/2024 11:36 am Narrative 05/20/2024 11:37 AM EDT Renal ? (Signed Final 05/20/2024 11:36 am) PATIENT INFO: ID #: ? [id number] ?: ??[birth year] (69 yrs)(M) Name: ? JOSSY Spivey KNIGHTS ? Visit Date: 05/20/2024 10:34 am PERFORMED BY: Attending: ?Joseph SOTOMAYOR, Teofilo Flores Resident: ? Kuldeep SOTOMAYOR, Trinidad Wright Performed By: ? Lulu Shin RDMS Referred By: ?SABA Goodson TORY Location: ? [place] SERVICE(S) PROVIDED: URETRO - Retroperitoneal Complete - [id number] ? [id number] INDICATIONS: CKD, increase BUN TECHNIQUE/SCAN QUALITY: Scan [...] 05/20/2024 11:36 am) PATIENT INFO: ID #: [id number] : [birth year] (69 yrs)(M) Name: JOSSY SHANKS Visit Date: 05/20/2024 10:34 am PERFORMED BY: Attending: Teofilo Ruiz MD Resident: Trinidad Light MD Performed By: Lulu Shin RDMS Referred By: SABA SPEARS Location: [place] SERVICE(S) PROVIDED: URETRO - Retroperitoneal Complete - [id number] INDICATIONS: CKD, increase BUN TECHNIQUE/SCAN QUALITY: Scan [...] who have questions, please contact the health long term acute care registered nurse that requested your imaging first. Teofilo Ruiz, Staff Physician Electronically Signed Final Report 05/20/2024 11:36 am Saba Spears MD IMG US GEN ORDERABL ES * POC, GLUCOSE (05/20/2024 8:03 AM EDT) [facility] Glucometer, POC 180 65 - 199 mg/dL 05/20/2024 8:03 AM EDT [facility] Comment:Supplemental ranges: <140 mg/dL before meals <180 mg/dL all other times of the day. Blood CAPILLARY BLOOD / Unknown 05/20/2024 8:03 AM EDT 05/20/2024 8:03 AM EDT Saba Spears MD POINT OF CARE TEST ORDERABLES Performing Organization Address City/[facility]/ZIP Co de Phone Number [facility] [place] [address] * Magnesium (05/20/2024 4:27 AM EDT) Magnesium 0.99 0.69 - 1.07 mMol/L 05/20/2024 5:27 AM EDT [facility] Blood VENOUS BLOOD SPECIMEN / Unknown IP Care Team Draw / Unknown 05/20/2024 4:27 AM EDT 05/20/2024 4:52 AM EDT Mary De La Fuente MD CHEMISTRY ORDERABL ES Performing Organization Address [facility] Co de Phone Number [facility] [place] [address] * (ABNORMAL) Phosphorus (05/20/2024 4:27 AM EDT) Phosphorus 5.1(H) 2.5 - 4.5 mg/dL 05/20/2024 5:27 AM EDT [facility] Blood VENOUS BLOOD SPECIMEN / Unknown IP Care Team Draw / Unknown 05/20/2024 4:27 AM EDT 05/20/2024 4:52 AM EDT Mary De La Fuente MD CHEMISTRY ORDERABL ES Performing Organization Address [facility] Co de Phone Number [facility] [place] [address] * (ABNORMAL) Basic Metabolic Panel (non-fasting) (05/20/2024 [...] CHEMISTRY ORDERABL ES [facility] [place] [place] [address] * (ABNORMAL) CBC (with Diff) (05/20/2024 4:27 AM EDT) White Blood Cell 15.20(H) 4.00 - 9.50 x10(3)/mc L 05/20/2024 5:32 AM EDT [facility] Red Blood Cell 2.69(L) 4.58 - 5.54 x10(6)/mc L 05/20/2024 5:32 AM EDT [facility] Hemoglobin 7.9(L) 13.7 - 16.5 g/dL 05/20/2024 5:32 AM EDT [facility] Hematocrit 25.5(L) 40.5 - 48.5 % 05/20/2024 5:32 AM EDT [facility] Mean Cell Volume 94.8(H) 82.9 - 93.1 fL 05/20/2024 5:32 AM [facility] [facility] Mean Cell Hemoglobin 29.4 27.5 - 32.1 pg 05/20/2024 5:32 AM EDT [facility] Mean Cell Hemoglobin Concentration 31.0(L) 32.0 - 35.7 g/dL 05/20/2024 5:32 AM EDT [facility] Platelet 403(H) 145 - 357 x10(3)/mc L 05/20/2024 5:32 AM EDT [facility] Mean Platelet Volume 10.7 7.6 - 12.9 fL 05/20/2024 5:32 AM EDT [facility] RDW Standard Deviation 54.7(H) 36.0 - 45.0 fL 05/20/2024 5:32 AM EDT [facility] RDW [...] 0.04 x10(3)/mc L 05/20/2024 5:32 AM EDT [facility] Blood VENOUS BLOOD SPECIMEN / Unknown IP Care Team Draw / Unknown 05/20/2024 4:27 AM EDT 05/20/2024 4:52 AM EDT Mary De La Fuente MD HEMATOLOGY ORDERAB LES [facility] [place] [place] [address] * POC, GLUCOSE (05/20/2024 3:11 AM EDT) Glucometer, POC 163 65 - 199 mg/dL 05/20/2024 3:12 AM EDT [facility] Comment:Supplemental ranges: <140 mg/dL before meals <180 mg/dL all other times of the day. Blood CAPILLARY BLOOD / Unknown 05/20/2024 3:11 AM EDT 05/20/2024 3:12 AM EDT Saba Spears MD POINT OF CARE TEST ORDERABLES Performing Organization Address City/[facility]/ZIP Co de Phone Number [facility] [place] [address] * POC, GLUCOSE (05/19/2024 11:07 PM EDT) Glucometer, POC 136 65 - 199 mg/dL 05/19/2024 11:07 PM EDT [facility] Comment:Supplemental ranges: <140 mg/dL before meals <180 mg/dL all other times of the day. Blood CAPILLARY BLOOD / Unknown 05/19/2024 11:07 PM EDT 05/19/2024 11:07 PM EDT Saba Spears MD POINT OF CARE TEST ORDERABLES [facility] [place] [address] * POC, GLUCOSE (05/19/2024 8:20 PM EDT) Glucometer, POC 150 65 - 199 mg/dL 05/19/2024 8:20 PM EDT [facility] Comment:Supplemental ranges: <140 mg/dL before meals <180 mg/dL all other times of the day. Blood CAPILLARY BLOOD / Unknown 05/19/2024 8:20 PM EDT 05/19/2024 8:21 PM EDT Saba Spears MD POINT OF CARE TEST ORDERABLES [facility] [place] [address] * (ABNORMAL) Iron and TIBC (05/19/2024 5:09 PM EDT) [facility] Iron 58 45 - 160 [...] CHEMISTRY ORDERABLE S [facility] [place] [address] * PTH (05/19/2024 5:09 PM EDT) [facility] Parathyroid Hormone 27 15 - 65 pg/mL 05/19/2024 6:15 PM EDT [facility] Blood VENOUS BLOOD SPECIMEN / Unknown IP Care Team Draw / Unknown 05/19/2024 5:09 PM EDT 05/19/2024 5:43 PM EDT Saba Spears MD CHEMISTRY ORDERABLE S [facility] [place] [address] * Ferritin (05/19/2024 5:08 PM EDT) Ferritin 191 31 - 409 ng/ml 05/19/2024 6:24 PM EDT [facility] Blood VENOUS BLOOD SPECIMEN / Unknown IP Care Team Draw / Unknown 05/19/2024 5:08 PM EDT 05/19/2024 5:43 PM EDT Saba Spears MD CHEMISTRY ORDERABLE S Performing Organization Address City/[facility]/ZIP Co de Phone Number [facility] [place] [address] * POC, GLUCOSE (05/19/2024 3:59 PM EDT) Glucometer, POC 185 65 - 199 mg/dL 05/19/2024 3:59 PM EDT [facility] Comment:Supplemental ranges: <140 mg/dL before meals <180 mg/dL all other times of the day. Blood CAPILLARY BLOOD / Unknown 05/19/2024 3:59 PM EDT 05/19/2024 3:59 PM EDT Saba Spears MD POINT OF CARE TEST ORDERABLES [facility] [place] [place] [address] * POC, GLUCOSE (05/19/2024 12:32 PM EDT) Glucometer, POC 143 65 - 199 mg/dL 05/19/2024 12:32 PM EDT [facility] Comment:Supplemental ranges: <140 mg/dL before meals <180 mg/dL all other times of the day. Blood CAPILLARY BLOOD / Unknown 05/19/2024 12:32 PM EDT 05/19/2024 12:32 PM EDT Saba Spears MD POINT OF CARE TEST ORDERABLES Performing Organization Address City/[facility]/ZIP Co de Phone Number [facility] [place] [address] * POC, GLUCOSE (05/19/2024 8:12 AM EDT) Glucometer, POC 181 65 - 199 mg/dL 05/19/2024 8:13 AM EDT [facility] Comment:Supplemental ranges: <140 mg/dL before meals <180 mg/dL all other times of the day. Blood CAPILLARY BLOOD / Unknown 05/19/2024 8:12 AM EDT 05/19/2024 8:13 AM EDT Saba Spears MD POINT OF CARE TEST ORDERABLES Performing Organization Address [facility] Co de Phone Number [facility] [place] [address] * (ABNORMAL) Magnesium (05/19/2024 5:11 AM EDT) Magnesium 1.08(H) 0.69 - 1.07 mMol/L 05/19/2024 5:58 AM EDT [facility] Blood VENOUS BLOOD SPECIMEN / Unknown IP Care Team Draw / Unknown 05/19/2024 5:11 AM EDT 05/19/2024 5:30 AM EDT Mary De La Fuente MD CHEMISTRY ORDERABL ES Performing Organization Address City/[facility]/ZIP Co de Phone Number [facility] [place] [address] * (ABNORMAL) Phosphorus (05/19/2024 5:11 AM EDT) Phosphorus 5.1(H) 2.5 - 4.5 mg/dL 05/19/2024 5:58 AM EDT [facility] Blood VENOUS BLOOD SPECIMEN / Unknown IP Care Team Draw / Unknown 05/19/2024 5:11 AM EDT 05/19/2024 5:30 AM EDT Mary De La Fuente MD CHEMISTRY ORDERABL ES [facility] [place] [address] * (ABNORMAL) Basic Metabolic Panel (non-fasting) (05/19/2024 5:11 AM EDT) Glucose 162 65 - 199 mg/dL 05/19/2024 6:53 AM EDT [facility] Comment:Glucose [...] Fasting Status No 05/19/2024 6:53 AM EDT [facility] Blood VENOUS BLOOD SPECIMEN / Unknown IP Care Team Draw / Unknown 05/19/2024 5:11 AM EDT 05/19/2024 5:30 AM EDT Mary De La Fuente MD CHEMISTRY ORDERABL ES [facility] [place] [address] * (ABNORMAL) CBC (with Diff) (05/19/2024 5:11 [...] 0.40 x10(3)/mc L 05/19/2024 5:37 AM EDT [facility] Basophil % 0.2 % 05/19/2024 5:37 AM EDT [facility] Baso [...] MD HEMATOLOGY ORDERAB LES Performing Organization Address City/[facility]/ZIP Co de Phone Number [facility] [place] [address] * POC, GLUCOSE (05/19/2024 3:27 AM EDT) Glucometer, POC 171 65 - 199 mg/dL 05/19/2024 3:28 AM EDT [facility] Comment:Supplemental ranges: <140 mg/dL before meals <180 mg/dL all other times of the day. Blood CAPILLARY BLOOD / Unknown 05/19/2024 3:27 AM EDT 05/19/2024 3:28 AM EDT Saba Spears MD POINT [place] [address] * POC, GLUCOSE (05/19/2024 12:02 AM EDT) Glucometer, POC 183 65 - 199 mg/dL 05/19/2024 12:02 AM EDT [facility] Comment:Supplemental ranges: <140 mg/dL before meals <180 mg/dL all other times of the day. Blood CAPILLARY BLOOD / Unknown 05/19/2024 12:02 AM EDT 05/19/2024 12:02 AM EDT Saba Spears MD POINT OF CARE TEST ORDERABLES Performing Organization Address City/[facility]/ZIP Co de Phone Number [facility] [place] [address] * (ABNORMAL) POC, GLUCOSE (05/18/2024 8:05 PM EDT) Glucometer, POC 207(H) 65 - 199 mg/dL 05/18/2024 8:06 PM EDT [facility] Comment:Supplemental ranges: <140 mg/dL before meals <180 mg/dL all other times of the day. Blood CAPILLARY BLOOD / Unknown 05/18/2024 8:05 PM EDT 05/18/2024 8:06 PM EDT Saba Spears MD POINT OF CARE TEST ORDERABLES Performing Organization Address City/[facility]/ZIP Co de Phone Number [facility] [place] [address] * POC, GLUCOSE (05/18/2024 6:14 PM EDT) Glucometer, POC 174 65 - 199 mg/dL 05/18/2024 6:15 PM EDT [facility] Comment:Supplemental ranges: <140 mg/dL before meals <180 mg/dL all other times of the day. Blood CAPILLARY BLOOD / Unknown 05/18/2024 6:14 PM EDT 05/18/2024 6:15 PM EDT Saba Spears MD POINT OF CARE TEST ORDERABLES Performing Organization Address City/[facility]/ZIP Co de Phone Number [facility] [place] [address] * (ABNORMAL) Basic Metabolic Panel (05/18/2024 5:04 [...] Fasting Status No 05/18/2024 6:14 PM EDT [facility] Blood VENOUS BLOOD SPECIMEN / Unknown IP Care Team Draw / Unknown 05/18/2024 5:04 PM EDT 05/18/2024 5:11 PM EDT Saba Spears MD CHEMISTRY ORDERABLE S Performing Organization Address [facility]/ZIP Co de Phone Number [facility] [place] [address] * (ABNORMAL) POC, GLUCOSE (05/18/2024 11:45 AM EDT) Glucometer, POC 211(H) 65 - 199 mg/dL 05/18/2024 11:45 AM EDT [facility] Comment:Supplemental ranges: <140 mg/dL before meals <180 mg/dL all other times of the day. Blood CAPILLARY BLOOD / Unknown 05/18/2024 11:45 AM EDT 05/18/2024 11:45 AM EDT Saba Spears MD POINT OF CARE TEST ORDERABLES Performing Organization Address [facility] Co de Phone Number [facility] [place] [address] * C diff Screen (05/18/2024 11:31 AM [...] - GENE RAL ORDERABLES Performing Organization Address City/[facility]/ZIP Co de Phone Number [facility] [place] [address] * C Diff PCR (05/18/2024 11:31 AM EDT) Stool STOOL SPECIMEN / Unknown Non Blood Collection / Unknown 05/18/2024 11:31 AM EDT 05/18/2024 12:09 PM EDT Saba Spears MD MICROBIOLOGY - GENE RAL ORDERABLES Performing Organization Address City/[facility]/ZIP Co de Phone Number [facility] [place] [address] * Creatinine, urine, random (05/18/2024 8:57 AM EDT) Creatinine, Urine 44 mg/dL 05/18/2024 9:36 AM EDT [facility] Urine URINE SPECIMEN / Unknown Non Blood Collection / Unknown 05/18/2024 8:57 AM EDT 05/18/2024 9:07 AM EDT Saba Spears MD URINE ORDERABLES Performing Organization Address [facility] de Phone Number [facility] [place] [address] * Electrolytes, urine, random (05/18/2024 8:57 AM [...] Spears MD URINE ORDERABLES Performing Organization Address City/[facility]/ZIP Co de Phone Number [facility] [place] [address] * POC, GLUCOSE (05/18/2024 8:34 AM EDT) Glucometer, POC 182 65 - 199 mg/dL 05/18/2024 8:35 AM EDT [facility] Comment:Supplemental ranges: <140 mg/dL before meals <180 mg/dL all other times of the day. Blood CAPILLARY BLOOD / Unknown 05/18/2024 8:34 AM EDT 05/18/2024 8:35 AM EDT Saba Spears MD POINT OF CARE TEST ORDERABLES Performing Organization Address [facility] Co de Phone Number [facility] [place] [place] [address] * POC, GLUCOSE (05/18/2024 4:10 AM EDT) Glucometer, POC 163 65 - 199 mg/dL 05/18/2024 4:10 AM EDT [facility] Comment:Supplemental ranges: <140 mg/dL before meals <180 mg/dL all other times of the day. Blood CAPILLARY BLOOD / Unknown 05/18/2024 4:10 AM EDT 05/18/2024 4:11 AM EDT Saba Spears MD POINT OF CARE TEST ORDERABLES Performing Organization Address City/[facility]/ZIP Co de Phone Number [facility] [place] [address] * (ABNORMAL) CBC (with Diff) (05/18/2024 4:01 [...] HEMATOLOGY ORDERAB LES [facility] [place] [address] * (ABNORMAL) Magnesium (05/18/2024 4:00 AM EDT) Magnesium 1.09(H) 0.69 - 1.07 mMol/L 05/18/2024 10:11 AM EDT [facility] Blood VENOUS BLOOD SPECIMEN / Unknown IP Care Team Draw / Unknown 05/18/2024 4:00 AM EDT 05/18/2024 4:13 AM EDT Mary De La Fuente MD CHEMISTRY ORDERABL ES Performing Organization Address [facility] Co de Phone Number [facility] [place] [place] [address] * (ABNORMAL) Phosphorus (05/18/2024 4:00 AM EDT) Phosphorus 4.7(H) 2.5 - 4.5 mg/dL 05/18/2024 10:11 AM EDT [facility] Blood VENOUS BLOOD SPECIMEN / Unknown IP Care Team Draw / Unknown 05/18/2024 4:00 AM EDT 05/18/2024 4:13 AM EDT Mary De La Fuente MD CHEMISTRY ORDERABL ES Performing Organization Address [facility] Co de Phone Number [facility] [place] [place] [address] * (ABNORMAL) Basic Metabolic Panel (non-fasting) (05/18/2024 [...] CHEMISTRY ORDERABL ES [facility] [place] [place] [address] * (ABNORMAL) POC, GLUCOSE (05/17/2024 11:30 PM EDT) [facility] Signature Glucometer, POC 232(H) 65 - 199 mg/dL 05/17/2024 11:30 PM EDT [facility] Comment:Supplemental ranges: <140 mg/dL before meals <180 mg/dL all other times of the day. Blood CAPILLARY BLOOD / Unknown 05/17/2024 11:30 PM EDT 05/17/2024 11:30 PM EDT Saba Spears MD POINT OF CARE TEST ORDERABLES Performing Organization Address City/[facility] Co de Phone Number [facility] [place] [place] [address] * POC, GLUCOSE (05/17/2024 8:12 PM EDT) Glucometer, POC 161 65 - 199 mg/dL 05/17/2024 8:12 PM EDT [facility] Comment:Supplemental ranges: <140 mg/dL before meals <180 mg/dL all other times of the day. Blood CAPILLARY BLOOD / Unknown 05/17/2024 8:12 PM EDT 05/17/2024 8:13 PM EDT Saba Spears MD POINT OF CARE TEST ORDERABLES Performing Organization Address [facility] Co de Phone Number [facility] [place] [place] [address] * POC, GLUCOSE (05/17/2024 5:35 PM EDT) Glucometer, POC 167 65 - 199 mg/dL 05/17/2024 5:35 PM EDT [facility] Comment:Supplemental ranges: <140 mg/dL before meals <180 mg/dL all other times of the day. Blood CAPILLARY BLOOD / Unknown 05/17/2024 5:35 PM EDT 05/17/2024 5:35 PM EDT Saba Spears MD POINT OF CARE TEST ORDERABLES Performing Organization Address City/[facility]/ZIP Co de Phone Number [facility] [place] [address] * POC, GLUCOSE (05/17/2024 12:50 PM EDT) Glucometer, POC 147 65 - 199 mg/dL 05/17/2024 12:50 PM EDT [facility] Comment:Supplemental ranges: <140 mg/dL before meals <180 mg/dL all other times of the day. Blood CAPILLARY BLOOD / Unknown 05/17/2024 12:50 PM EDT 05/17/2024 12:50 PM EDT Saba Spears MD POINT OF CARE TEST ORDERABLES Performing Organization Address City/[facility]/ZIP Co de Phone Number [facility] [place] [address] * POC, GLUCOSE (05/17/2024 8:20 AM EDT) Glucometer, POC 139 65 - 199 mg/dL 05/17/2024 8:21 AM EDT [facility] Comment:Supplemental ranges: <140 mg/dL before meals <180 mg/dL all other times of the day. Blood CAPILLARY BLOOD / Unknown 05/17/2024 8:20 AM EDT 05/17/2024 8:21 AM EDT Treva Diaz MD POINT OF CARE TEST ORDERABLES Performing Organization Address City/[facility]/ZIP Co de Phone Number [facility] [place] [address] * (ABNORMAL) Magnesium (05/17/2024 5:49 AM EDT) Magnesium 1.14(H) 0.69 - 1.07 mMol/L 05/17/2024 6:58 AM EDT [facility] Blood IP Care Team w / Unknown 05/17/2024 5:49 AM EDT 05/17/2024 6:13 AM EDT Mary De La Fuente MD CHEMISTRY ORDERABL ES Performing Organization Address City/[facility]/ZIP Co de Phone Number [facility] [place] [place] [address] * (ABNORMAL) Phosphorus (05/17/2024 5:49 AM EDT) Phosphorus 5.6(H) 2.5 - 4.5 mg/dL 05/17/2024 6:58 AM EDT [facility] Blood IP Care Team w / Nick 05/17/2024 5:49 AM EDT 05/17/2024 6:13 AM EDT Mary De La Fuente MD CHEMISTRY ORDERABL ES [facility] [place] [place] [address] * (ABNORMAL) Basic Metabolic Panel (non-fasting) (05/17/2024 5:49 AM EDT) Glucose 131 65 - 199 mg/dL 05/17/2024 6:58 AM EDT [facility] Comment:Glucose Concentratio n >=200 mg/dL plus symptoms is consistent with Diabetes Mellitus. Blood Urea Nitrogen 86(H) 10 - 20 mg/dL 05/17/2024 6:58 AM T [facility] Creatinine 3.07(H) 0.80 [...] Fasting Status No 05/17/2024 6:58 AM T [facility] Blood IP Care Team w / Nick 05/17/2024 5:49 AM EDT 05/17/2024 6:13 AM EDT Mary De La Fuente MD CHEMISTRY ORDERABL ES Performing Organization Address City/State/[facility] Co de Phone Number [facility] [place] [address] * (ABNORMAL) CBC (with Diff) (05/17/2024 5:49 AM EDT) White Blood Cell 8.61 4.00 - 9.50 x10(3)/mc L 05/17/2024 6:28 AM EDT [facility] Red Blood Cell 3.54(L) 4.58 - 5.54 x10(6)/mc L 05/17/2024 6:28 AM EDT [facility] Hemoglobin 10.5(L) 13.7 [...] 0.40 x10(3)/mc L 05/17/2024 6:28 AM EDT [facility] Basophil % 0.1 [...] MD HEMATOLOGY ORDERAB LES Performing Organization Address City/[facility]/ZIP Co de Phone Number [facility] [place] [address] * Vancomycin Level, Random (05/17/2024 5:49 AM EDT) [facility] Vancomycin, Random 22.4 mg/L 2023 6:58 AM EDT [facility] Comment:This level is for de termination of the patient's vancomycin fhel-trnjl-bwc-curve (AUC) value. Contact the inpatient pharmacy for interpretation. Blood IP Care Team Gia w / Unknown 05/17/2024 5:49 AM EDT 05/17/2024 6:13 AM EDT Treva Diaz MD CHEMISTRY ORDERABL ES Performing Organization Address [facility] Co de Phone Number [facility] [place] [address] * POC, GLUCOSE (05/17/2024 3:54 AM EDT) Glucometer, POC 135 65 - 199 mg/dL 05/17/2024 3:55 AM EDT [facility] Comment:Supplemental ranges: <140 mg/dL before meals <180 mg/dL all other times of the day. Blood CAPILLARY BLOOD / Unknown 05/17/2024 3:54 AM EDT 05/17/2024 3:55 AM EDT Treva Diaz MD POINT OF CARE TEST ORDERABLES [facility] [place] [place] [address] * POCT Glucose (05/16/2024 11:46 PM EDT) Glucose, POC 148 65 - 199 mg/dL [facility] Comment: Supplemental ranges: <140 mg/dL before meals <180 mg/dL all other times of the day Blood 05/16/2024 11:4 6 PM EDT 05/16/2024 11:46 PM EDT Treva Diaz MD POINT OF CARE TEST ORDERABLES Performing Organization Address City/[facility]/ZIP Co de Phone Number [facility] [place] [address] * POCT Glucose (05/16/2024 9:06 PM EDT) Glucose, POC 191 65 - 199 mg/dL [facility] Comment: Supplemental ranges: <140 mg/dL before meals <180 mg/dL all other times of the day Blood 05/16/2024 9:06 PM EDT 05/16/2024 9:06 PM EDT Treva Diaz MD POINT OF CARE TEST ORDERABLES [facility] [place] [place] [address] * POCT Glucose (05/16/2024 8:04 PM EDT) Glucose, POC 199 65 - 199 mg/dL [facility] Comment: Supplemental ranges: <140 mg/dL before meals <180 mg/dL all other times of the day Blood 05/16/2024 8:04 PM EDT 05/16/2024 8:04 PM EDT Treva Diaz MD POINT OF CARE TEST ORDERABLES [facility] [place] [place] [address] * POCT Glucose (05/16/2024 4:51 PM EDT) Glucose, POC 162 65 - 199 mg/dL [facility] Comment: Supplemental ranges: <140 mg/dL before meals <180 mg/dL all other times of the day Blood 05/16/2024 4:51 PM EDT 05/16/2024 4:51 PM EDT Treva Diaz MD POINT OF CARE TEST ORDERABLES [facility] [place] [place] [address] * POCT Glucose (05/16/2024 12:48 PM EDT) Glucose, POC 153 65 - 199 mg/dL [facility] Comment: Supplemental ranges: <140 mg/dL before meals <180 mg/dL all other times of the day Blood 05/16/2024 12:4 8 PM EDT 05/16/2024 12:48 PM EDT Treva Diaz MD POINT OF CARE TEST ORDERABLES [facility] [place] [place] [address] * POCT Glucose (05/16/2024 8:45 AM EDT) Glucose, POC 165 65 - 199 mg/dL [facility] Comment: Supplemental ranges: <140 mg/dL before meals <180 mg/dL all other times of the day Blood 05/16/2024 8:45 AM EDT 05/16/2024 8:45 AM EDT Treva Diaz MD POINT OF CARE TEST ORDERABLES Performing Organization Address City/State/[facility] Co de Phone Number [facility] [place] [address] * (ABNORMAL) Differential, Automated (05/16/2024 5:14 AM EDT) Neutrophil % 79.4 % [facility] Neutrophil Absolute 9.22(H) 1.70 - 6.10 x10(3)/mc L [facility] Lymph % 6.6 % [facility] Lymphocytes Abs 0.8(L) 0.9 - 3.2 x10(3)/mc L [facility] Monocyte % 9.5 % [facility] Monocyte Abs 1.1(H) 0.3 - 0.9 x10(3)/mc L [facility] Eos % 0.0 % [facility] Eosinophils Abs 0.0 0.0 - 0.4 x10(3)/mc L [facility] Basophil % 0.2 % [facility] [...] HEMATOLOGY OR DERABLES [facility] [place] [place] [address] * (ABNORMAL) Hemogram (05/16/2024 5:14 AM EDT) White Blood Cell 11.6(H) 4.0 - 9.5 x10(3)/mc L [facility] Red Blood Cell 3.59(L) 4.58 - 5.54 x10(6)/mc L [facility] Hemoglobin 10.5(L) 13.7 - 16.5 g/dL [facility] Hematocrit 33.8(L) 40.5 - 48.5 % [facility] Mean Cell Volume 94.2(H) 82.9 - 93.1 fL [facility] Mean Cell Hemoglobin 29.2 27.5 - 32.1 pg [facility] Mean Cell Hemoglobin Concentration 31.1(L) 32.0 - 35.7 g/dL [facility] Platelet 317 145 - 357 x10(3)/mc L [facility] RDW Standard Deviation 55.1(H) 36.0 - 45.0 fL [facility] RDW coefficient of variation 15.9(H) 11.4 - 13.8 % [facility] Mean Platelet Volume 10.6 7.6 - 12.9 fL [facility] NRBC% auto 0.0 % [facility] NRBC Absolute 0.000 0.000 - 0.000 x10(3)/ L [facility] Blood 05/16/2024 5:14 AM EDT 05/16/2024 5:38 AM EDT Narrative Resulting Agency Comment Spec In Lab Carlotta Davis MD HEMATOLOGY OR DERABLES Performing Organization Address [facility] Co de Phone Number [facility] [place] [address] * (ABNORMAL) Magnesium (05/16/2024 5:14 AM EDT) Magnesium 1.22(H) 0.69 - 1.07 mmol/L [facility] Blood 05/16/2024 5:14 AM EDT 05/16/2024 5:38 AM EDT Narrative Resulting Agency Comment Spec In Lab Mary De La Fuente MD CHEMISTRY ORDERABL ES Performing Organization Address [facility] de Phone Number [facility] [place] [place] [address] * (ABNORMAL) Phosphorus (05/16/2024 5:14 AM EDT) Phosphorus 6.3(H) 2.5 - 4.5 mg/dL [facility] Blood 05/16/2024 5:14 AM EDT 05/16/2024 5:38 AM EDT Narrative Resulting Agency Comment Spec In Lab Mary De La Fuente MD CHEMISTRY ORDERABL ES Performing Organization Address [facility] Co de Phone Number [facility] [place] [address] * (ABNORMAL) Basic Metabolic Panel (non-fasting) (05/16/2024 5:14 AM EDT) Glucose 154 65 - 199 mg/dL [facility] [...] CHEMISTRY ORDERABL ES [facility] [place] [address] * Vancomycin Level, Random (05/16/2024 5:14 AM EDT) Vancomycin, Random 29.1 mg/L [facility] Comment: This level is for determination of the patient's vancomycin kfbd-hngaj-wxx-curve (AUC) value. Contact the inpatient pharmacy for interpretation. Blood 05/16/2024 5:14 AM EDT 05/16/2024 5:38 AM EDT Treva Diaz MD CHEMISTRY ORDERABL ES Performing Organization Address City/[facility]/ZIP Co de Phone Number [facility] [place] [address] * POCT Glucose (05/16/2024 3:53 AM EDT) Glucose, POC 166 65 - 199 mg/dL [facility] Comment: Supplemental ranges: <140 mg/dL before meals <180 mg/dL all other times of the day Blood 05/16/2024 3:53 AM EDT 05/16/2024 3:53 AM EDT Treva Diaz MD POINT OF CARE TEST ORDERABLES Performing Organization Address [facility] Co de Phone Number [facility] [place] [address] * POCT Glucose (05/15/2024 11:41 PM EDT) Glucose, POC 171 65 - 199 mg/dL [facility] Comment: Supplemental ranges: <140 mg/dL before meals <180 mg/dL all other times of the day Blood 05/15/2024 11:4 1 PM EDT 05/15/2024 11:41 PM EDT Treva Diaz MD POINT OF CARE TEST ORDERABLES Performing Organization Address City/[facility]/ZIP Co de Phone Number [facility] [place] [address] * POCT Glucose (05/15/2024 10:32 PM EDT) Glucose, POC 183 65 - 199 mg/dL [facility] Comment: Supplemental ranges: <140 mg/dL before meals <180 mg/dL all other times of the day Blood 05/15/2024 10:3 2 PM EDT 05/15/2024 10:32 PM EDT Treva Diaz MD POINT OF CARE TEST ORDERABLES [facility] [place] [address] * POCT Glucose (05/15/2024 7:53 PM EDT) Pathologist [facility] Glucose, POC 187 65 - 199 mg/dL [facility] Comment: Supplemental ranges: <140 mg/dL before meals <180 mg/dL all other times of the day Blood 05/15/2024 7:53 PM EDT 05/15/2024 7:53 PM EDT Treva Diaz MD POINT OF CARE TEST ORDERABLES Performing Organization Address City/[facility]/ZIP Co de Phone Number [facility] [place] [address] * MRSA PCR Screen ([facility]/CGP/APD/NLH) (05/15/2024 4:15 PM EDT) [facility] MRSA PCR Negative Negative [facility] MRSA (Interp) Methicillin-resist ant Staphylococcus aureus (MRSA) is NOT DETECTED The MRSA target DNA sequences (mec and SCC) were not detected within the acceptable ranges using the Xpert MRSA NxG on the GeneXpert Dx System (Sante[employer]). This suggests the absence of MRSA in the patient specimen submitted for testing. This test is cleared by the U.S. Food and Drug Administration for clinical use and its performance characteristics have been verified by the [facility] at [facility]. This result does not rule out [...] MD MOLECULAR ORDERABL ES Performing Organization Address [facility]/ZIP Co de Phone Number [facility] [place] [address] * (ABNORMAL) POCT Glucose (05/15/2024 3:20 PM EDT) Glucose, POC 224(H) 65 - 199 mg/dL [facility] Comment: Supplemental ranges: <140 mg/dL before meals <180 mg/dL all other times of the day Blood 05/15/2024 3:20 PM EDT 05/15/2024 3:20 PM EDT Treva Diaz MD POINT OF CARE TEST ORDERABLES Performing Organization Address [facility] Co de Phone Number [facility] [place] [address] * (ABNORMAL) POCT Glucose (05/15/2024 11:39 AM EDT) Glucose, POC 213(H) 65 - 199 mg/dL [facility] Comment: Supplemental ranges: <140 mg/dL before meals <180 mg/dL all other times of the day Blood 05/15/2024 11:3 9 AM EDT 05/15/2024 11:39 AM EDT Treva Diaz MD POINT OF CARE TEST ORDERABLES Performing Organization Address [facility] Co de Phone Number [facility] [place] [address] * POCT Glucose (05/15/2024 8:02 AM EDT) Glucose, POC 190 65 - 199 mg/dL [facility] Comment: Supplemental ranges: <140 mg/dL before meals <180 mg/dL all other times of the day Blood 05/15/2024 8:02 AM EDT 05/15/2024 8:02 AM EDT Treva Diaz MD POINT OF CARE TEST ORDERABLES [facility] [place] [address] * (ABNORMAL) Differential, Automated (05/15/2024 5:12 AM EDT) Neutrophil % 85.3 % [facility] Neutrophil Absolute 11.37(H) 1.70 - 6.10 x10(3)/mc L [facility] Lymph % 3.7 % [facility] Lymphocytes Abs 0.5(L) 0.9 - 3.2 x10(3)/ L [facility] Monocyte % 9.1 % [facility] Monocyte Abs 1.2(H) 0.3 - 0.9 x10(3)/ L [facility] Eos % 0.0 % [facility] Eosinophils Abs 0.0 0.0 - 0.4 x10(3)/ L [facility] Basophil % 0.1 % [facility] Baso Absolute 0.0 0.0 - 0.1 x10(3)/[facility] Immature Gran % 1.80 % [facility] Comment: Immature granulocytes(IG's)percentage and absolute count will include metamyelocytes, myelocytes, and promyelocytes. Blood smears from CBCs yielding IG's will be scanned manually for concordance. If this scan disagrees with the automated IG or if promyelocytes are noted, a manual differential will be performed. Immature Gran Absolute 0.24(H) 0.00 - 0.04 x10(3)/ L [facility] Blood 05/15/2024 5:12 AM EDT 05/15/2024 5:38 AM EDT Narrative Resulting Agency Comment Spec In Lab Carlotta Davis MD HEMATOLOGY OR DERABLES [facility] [place] [address] * (ABNORMAL) Hemogram (05/15/2024 5:12 AM EDT) White Blood Cell 13.4(H) 4.0 - 9.5 x10(3)/mc L [facility] Platelet 227 145 - 357 x10(3)/ L [facility] RDW Standard Deviation 55.8(H) 36.0 - 45.0 [facility] RDW coefficient of variation 15.8(H) 11.4 - 13.8 % [facility] Mean Platelet Volume 10.7 7.6 - 12.9 fL [facility] NRBC% auto 0.0 % [facility] NRBC Absolute 0.000 0.000 - 0.000 x10(3)/[facility] Blood 05/15/2024 5:12 AM EDT 05/15/2024 5:38 AM EDT Narrative Resulting Agency Comment Spec In Lab Carlotta Davis MD HEMATOLOGY OR DERABLES [facility] [place] [address] * (ABNORMAL) Magnesium (05/15/2024 5:12 AM EDT) Magnesium 1.21(H) 0.69 - 1.07 mmol/L [facility] Blood 05/15/2024 5:12 AM EDT 05/15/2024 5:38 AM EDT Narrative Resulting Agency Comment Spec In Lab Mary De La Fuente MD CHEMISTRY ORDERABL ES Performing Organization Address [facility]/ZIP Co de Phone Number [facility] [place] [address] * (ABNORMAL) Phosphorus (05/15/2024 5:12 AM EDT) Phosphorus 6.5(H) 2.5 - 4.5 mg/dL [facility] Comment:result rechecked-HN Blood 05/15/2024 5:12 AM EDT 05/15/2024 5:38 AM EDT Narrative Resulting Agency Comment Spec In Lab Mary De La Fuente MD CHEMISTRY ORDERABL ES Performing Organization Address [facility] Co de Phone Number [facility] [place] [address] * (ABNORMAL) Basic Metabolic Panel (non-fasting) (05/15/2024 [...] CHEMISTRY ORDERABL ES [facility] [place] [address] * (ABNORMAL) POCT Glucose (05/15/2024 4:55 AM EDT) Glucose, POC 223(H) 65 - 199 mg/dL [facility] Comment: Supplemental ranges: <140 mg/dL before meals <180 mg/dL all other times of the day Blood 05/15/2024 4:55 AM EDT 05/15/2024 4:55 AM EDT Treva Diaz MD POINT OF CARE TEST ORDERABLES [facility] [place] [address] * (ABNORMAL) POCT Glucose (05/15/2024 2:51 AM EDT) Glucose, POC 279(H) 65 - 199 mg/dL [facility] Comment: Supplemental ranges: <140 mg/dL before meals <180 mg/dL all other times of the day Blood 05/15/2024 2:51 AM EDT 05/15/2024 2:51 AM EDT Treva Diaz MD POINT OF CARE TEST ORDERABLES [facility] [place] [address] * (ABNORMAL) POCT Glucose (05/14/2024 9:03 PM EDT) Glucose, POC 257(H) 65 - 199 mg/dL [facility] Comment: Supplemental ranges: <140 mg/dL before meals <180 mg/dL all other times of the day Blood 05/14/2024 9:03 PM EDT 05/14/2024 9:03 PM EDT Treva Diaz MD POINT OF CARE TEST ORDERABLES [facility] [place] [address] * (ABNORMAL) POCT Glucose (05/14/2024 7:15 PM EDT) Glucose, POC 207(H) 65 - 199 mg/dL [facility] Comment: Supplemental ranges: <140 mg/dL before meals <180 mg/dL all other times of the day Blood 05/14/2024 7:15 PM EDT 05/14/2024 7:15 PM EDT Treva Diaz MD POINT OF CARE TEST ORDERABLES [facility] [place] [address] * POCT Glucose (05/14/2024 4:47 PM EDT) Glucose, POC 188 65 - 199 mg/dL [facility] Comment: Supplemental ranges: <140 mg/dL before meals <180 mg/dL all other times of the day Blood 05/14/2024 4:47 PM EDT 05/14/2024 4:47 PM EDT Treva Diaz MD POINT OF CARE TEST ORDERABLES Performing Organization Address City/[facility]/ZIP Co de Phone Number [facility] [place] [address] * POCT Glucose (05/14/2024 1:21 PM EDT) Glucose, POC 163 65 - 199 mg/dL [facility] Comment: Supplemental ranges: <140 mg/dL before meals <180 mg/dL all other times of the day Blood 05/14/2024 1:21 PM EDT 05/14/2024 1:21 PM EDT Treva Diaz MD POINT OF CARE TEST ORDERABLES Performing Organization Address [facility]/ZIP Co de Phone Number [facility] [place] [address] * Anaerobic Culture (05/14/2024 11:33 AM EDT) Anaerobic Culture No anaerobic organisms isolated [facility] Toe 05/14/2024 11:3 3 AM EDT 05/14/2024 12:33 PM EDT Comment:PROXIMAL RIGHT 2ND T OE Narrative Resulting Agency Comment Spec In Lab Gennaro Meyers MD MICROBIOLOGY - GENE RAL ORDERABLES Performing Organization Address [facility]/ZIP Co de Phone Number [facility] [place] [address] * (ABNORMAL) Tissue culture (05/14/2024 11:33 AM [...] Sensitive Comment:Gentamicin i s not appropriate for [place]-therapy. Coagulase Negative Staphylococcus species Levofloxacin MICROSCAN METHOD [...] Gennaro Meyers MD MICROBIOLOGY - [facility] ORDERABLES [facility] [place] [address] * Surgical Pathology Report (05/14/2024 11:32 AM EDT) Surgical Pathology Report [id number] ? Location: [id number]; [id number]; A The signing [...] Verified: ??05/20/2024 11:25 Performed at: ??-[facility] Dept. of Pathology, [place] [address] Datawarehouse Developer: Polly Barnhart MD, FCAP, ??CLIA Certificate: [id number] SPECIMEN(S) SUBMITTED A - RIGHT 2ND TOE, [...] Sections/Processi ng: Blocks submitted for decalcification: A1-A2. Manager Business Management sections in 2 cassettes as follows: ?A1-A2: ??Longitudinal section of digit ??cmk [facility] 05/14/2024 11:3 2 AM EDT Gennaro Meyers MD PATHOLOGY/CYTOLOGY ORDERABLES [facility] [place] [place] [address] * Specimen to Pathology (05/14/2024 11:32 AM EDT) AP Specimen 05/14/2024 11:3 2 AM EDT 05/14/2024 11:32 AM EDT Narrative [facility] - 05/14/2024 11:32 AM EDT Specimen requisition ordered. ??Separate Pathology report to follow Treva Diaz MD PATHOLOGY/CYTOLOGY ORDERABLES Performing Organization Address City/[facility] Co de Phone Number [facility] [place] [address] * (ABNORMAL) POCT Glucose (05/14/2024 7:58 AM EDT) [facility] Glucose, POC 203(H) 65 - 199 mg/dL [facility] Comment: Supplemental ranges: <140 mg/dL before meals <180 mg/dL all other times of the day Blood 05/14/2024 7:58 AM EDT 05/14/2024 7:58 AM EDT Treva Diaz MD POINT OF CARE TEST ORDERABLES Performing Organization Address [facility] Co de Phone Number [facility] [place] [address] * (ABNORMAL) Differential, Automated (05/14/2024 5:01 AM EDT) [facility] Neutrophil % 80.5 % [facility] Neutrophil Absolute 12.45(H) 1.70 - 6.10 x10(3)/mc L [facility] Lymph % 5.5 % [facility] Lymphocytes Abs 0.8(L) 0.9 - 3.2 x10(3)/mc L [facility] Monocyte % 12.6 % [facility] Monocyte Abs 2.0(H) 0.3 - 0.9 x10(3)/mc L [facility] Eos % 0.3 % [facility] Eosinophils Abs 0.0 0.0 - 0.4 x10(3)/mc L [facility] Basophil % 0.2 % [facility] Baso Absolute 0.0 0.0 - 0.1 x10(3)/ L [facility] [...] Immature Gran Absolute 0.14(H) 0.00 - 0.04 x10(3)/[facility] Blood 05/14/2024 5:01 AM EDT 05/14/2024 6:02 AM EDT Narrative Resulting Agency Comment Spec In Lab Carlotta Davis MD HEMATOLOGY OR DERABLES [facility] [place] [id number] * (ABNORMAL) Hemogram (05/14/2024 5:01 AM EDT) [...] MEDICAL CENTER [facility] NRBC% auto 0.0 % [facility] NRBC Absolute 0.000 0.000 - 0.000 x10(3)/mc L [facility] Blood 05/14/2024 5:01 AM EDT 05/14/2024 6:02 AM EDT Narrative Resulting Agency Comment Spec In Lab Carlotta Davis MD HEMATOLOGY OR DERABLES Performing Organization Address [facility] [place] [address] * Magnesium (05/14/2024 5:01 AM EDT) Magnesium 0.98 0.69 - 1.07 mmol/L [facility] Blood 05/14/2024 5:01 AM EDT 05/14/2024 6:02 AM EDT Narrative Resulting Agency Comment Spec In Lab Mary De La Fuente MD CHEMISTRY ORDERABL ES Performing Organization Address [facility] [place] [address] * Phosphorus (05/14/2024 5:01 AM EDT) Phosphorus 2.8 2.5 - 4.5 mg/dL [facility] Blood 05/14/2024 5:01 AM EDT 05/14/2024 6:02 AM EDT Narrative Resulting Agency Comment Spec In Lab Mary De La Fuente MD CHEMISTRY ORDERABL ES Performing Organization Address [facility] Co de Phone Number [facility] [place] [address] * (ABNORMAL) Basic Metabolic Panel (non-fasting) (05/14/2024 [...] MD CHEMISTRY ORDERABL ES Performing Organization Address City/[facility] Co de Phone Number [facility] [place] [address] * Vancomycin Level, Random (05/14/2024 5:01 AM EDT) Vancomycin, Random 13.5 mg/L [facility] Comment: This level is for determination of the patient's vancomycin lzai-asbgb-jyx-curve (AUC) value. Contact the inpatient pharmacy for interpretation. Blood 05/14/2024 5:01 AM EDT 05/14/2024 6:02 AM EDT Treva Diaz MD CHEMISTRY ORDERABL ES Performing Organization Address [facility] Co de Phone Number [facility] [place] [address] * POCT Glucose (05/13/2024 8:41 PM EDT) Glucose, POC 179 65 - 199 mg/dL [facility] Comment: Supplemental ranges: <140 mg/dL before meals <180 mg/dL all other times of the day Blood 05/13/2024 8:41 PM EDT 05/13/2024 8:41 PM EDT Treva Diaz MD POINT OF CARE TEST ORDERABLES Performing Organization Address City/[facility]/ZIP Co de Phone Number [facility] [place] [address] * POCT Glucose (05/13/2024 6:06 PM EDT) Glucose, POC 135 65 - 199 mg/dL [facility] Comment: Supplemental ranges: <140 mg/dL before meals <180 mg/dL all other times of the day Blood 05/13/2024 6:06 PM EDT 05/13/2024 6:06 PM EDT Treva Diaz MD POINT OF CARE TEST ORDERABLES [facility] [place] [address] * POCT Glucose (05/13/2024 11:12 AM EDT) Glucose, POC 163 65 - 199 mg/dL [facility] Comment: Supplemental ranges: <140 mg/dL before meals <180 mg/dL all other times of the day Blood 05/13/2024 11:1 2 AM EDT 05/13/2024 11:12 AM EDT Treva Diaz MD POINT OF CARE TEST ORDERABLES Performing Organization Address City/[facility]/ZIP Co de Phone Number [facility] [place] [address] * POCT Glucose (05/13/2024 7:47 AM EDT) Glucose, POC 194 65 - 199 mg/dL [facility] Comment: Supplemental ranges: <140 mg/dL before meals <180 mg/dL all other times of the day Blood 05/13/2024 7:47 AM EDT 05/13/2024 7:47 AM EDT Treva Diaz MD POINT OF CARE TEST ORDERABLES Performing Organization Address City/[facility]/ZIP Co de Phone Number [facility] [place] [address] * Scan, Peripheral Blood (05/13/2024 5:29 AM EDT) Plat estimate Normal [facility] RBC Morphology Abnormal [facility] Sofía Cells 1-5 /HPF [facility] Plat, Giant Less than 1 /HPF [facility] Blood 05/13/2024 5:29 AM EDT 05/13/2024 5:49 AM EDT Narrative Resulting Agency Comment Spec In Lab Carlotta Davis MD HEMATOLOGY OR DERABLES Performing Organization Address City/[facility]/ZIP Co de Phone Number [facility] [place] [address] * (ABNORMAL) Differential, Automated (05/13/2024 5:29 AM EDT) Neutrophil % 81.8 % [facility] Neutrophil Absolute 12.66(H) 1.70 - 6.10 x10(3)/mc L [facility] Lymph % 5.0 % [facility] Lymphocytes Abs 0.8(L) 0.9 - 3.2 x10(3)/ L [facility] Monocyte % 12.3 % [facility] Monocyte Abs 1.9(H) 0.3 - 0.9 x10(3)/mc L [facility] Eos % 0.2 % [facility] Eosinophils Abs 0.0 0.0 - 0.4 x10(3)/mc L [facility] Basophil % 0.1 % [facility] [...] MD HEMATOLOGY OR DERABLES Performing Organization Address City/[facility]/ZIP Co de Phone Number [facility] [place] [address] * (ABNORMAL) Hemogram (05/13/2024 5:29 AM EDT) White Blood Cell 15.5(H) 4.0 - 9.5 x10(3)/ L [facility] Red Blood Cell 3.64(L) 4.58 - 5.54 x10(6)/[facility] Hemoglobin 10.9(L) 13.7 - 16.5 [...] CENTER LABORATORY Platelet 186 145 - 357 x10(3)/[facility] RDW Standard Deviation 53.0(H) 36.0 - 45.0 [facility] RDW coefficient of variation 15.8(H) 11.4 - 13.8 % [facility] Mean Platelet Volume 11.8 7.6 - 12.9 fL [facility] NRBC% auto 0.0 % [facility] NRBC Absolute 0.000 0.000 - 0.000 x10(3)/[facility] Blood 05/13/2024 5:29 AM EDT 05/13/2024 5:49 AM EDT Narrative Resulting Agency Comment Spec In Lab Carlotta Davis MD HEMATOLOGY OR DERABLES [facility] [place] [address] * Magnesium (05/13/2024 5:29 AM EDT) Pathologist [facility] Magnesium 0.99 0.69 - 1.07 mmol/L [facility] Blood 05/13/2024 5:29 AM EDT 05/13/2024 5:49 AM EDT Narrative Resulting Agency Comment Spec In Lab Mary De La Fuente MD CHEMISTRY ORDERABL ES Performing Organization Address [facility] Co de Phone Number [facility] [place] [address] * Phosphorus (05/13/2024 5:29 AM EDT) Phosphorus 2.7 2.5 - 4.5 mg/dL [facility] Blood 05/13/2024 5:29 AM EDT 05/13/2024 5:49 AM EDT Narrative Resulting Agency Comment Spec In Lab Mary De La Fuente MD CHEMISTRY ORDERABL ES Performing Organization Address [facility] de Phone Number [facility] [place] [address] * (ABNORMAL) Basic Metabolic Panel (non-fasting) (05/13/2024 [...] MD CHEMISTRY ORDERABL ES Performing Organization Address City/[facility]/ZIP Co de Phone Number [facility] [place] [address] * POCT Glucose (05/12/2024 11:46 PM EDT) Glucose, POC 165 65 - 199 mg/dL [facility] Comment: Supplemental ranges: <140 mg/dL before meals <180 mg/dL all other times of the day Blood 05/12/2024 11:4 6 PM EDT 05/12/2024 11:46 PM EDT Treva Diaz MD POINT OF CARE TEST ORDERABLES [facility] [place] [address] * POCT Glucose (05/12/2024 8:36 PM EDT) Glucose, POC 164 65 - 199 mg/dL [facility] Comment: Supplemental ranges: <140 mg/dL before meals <180 mg/dL all other times of the day Blood 05/12/2024 8:36 PM EDT 05/12/2024 8:36 PM EDT Treva Diaz MD POINT OF CARE TEST ORDERABLES Performing Organization Address City/[facility] [facility]/ZIP Co de Phone Number [facility] [place] [address] * POCT Glucose (05/12/2024 5:38 PM EDT) Glucose, POC 175 65 - 199 mg/dL [facility] Comment: Supplemental ranges: <140 mg/dL before meals <180 mg/dL all other times of the day Blood 05/12/2024 5:38 PM EDT 05/12/2024 5:38 PM EDT Treva Diaz MD POINT OF CARE TEST ORDERABLES Performing Organization Address [facility]/ZIP Co de Phone Number [facility] [place] [address] * Vancomycin Level, Random (05/12/2024 2:10 PM EDT) Vancomycin, Random 22.3 mg/L [facility] Comment: This level is for determination of the patient's vancomycin faba-fifrh-gke-curve (AUC) value. Contact the inpatient pharmacy for interpretation. Blood 05/12/2024 2:10 PM EDT 05/12/2024 2:23 PM EDT Treva Diaz MD CHEMISTRY ORDERABL ES Performing Organization Address City/[facility]/ZIP Co de Phone Number [facility] [place] [address] * POCT Glucose (05/12/2024 1:42 PM EDT) Glucose, POC 168 65 - 199 mg/dL [facility] Comment: Supplemental ranges: <140 mg/dL before meals <180 mg/dL all other times of the day Blood 05/12/2024 1:42 PM EDT 05/12/2024 1:42 PM EDT Treva Diaz MD POINT OF CARE TEST ORDERABLES Performing Organization Address City/[facility] Co de Phone Number [facility] [place] [address] * Duplex for DVT, Leg, Unilat (05/12/2024 10:19 AM EDT) VB Text Report Department: Vascular Surgery Lab Patient: [id number] (JOSSY SHANKS) CPT: [id number] Referring Physician: MARY DE LA FUENTE ?? [...] MD VASCULAR ORDERABLE S Performing Organization Address City/[facility]/ZIP Co de Phone Number [facility] * POCT Glucose (05/12/2024 9:00 AM EDT) Glucose, POC 161 65 - 199 mg/dL [facility] Comment: Supplemental ranges: <140 mg/dL before meals <180 mg/dL all other times of the day Blood 05/12/2024 9:00 AM EDT 05/12/2024 9:00 AM EDT Treva Diaz MD POINT OF CARE TEST ORDERABLES Performing Organization Address [facility] Co de Phone Number [facility] [place] [address] * (ABNORMAL) Sedimentation rate (05/12/2024 4:45 AM EDT) [facility] Sedimentation Rate Automated >119(H) 3 [...] MD HEMATOLOGY ORDERABLE S Performing Organization Address [facility] Co de Phone Number [facility] [place] [address] * (ABNORMAL) CRP, acute inflammation (05/12/2024 4:45 AM EDT) [facility] C-Reactive Protein 152.4(H) <=4.9 mg/L [facility] Blood Venous Draw / Unknown 05/12/2024 4:45 AM EDT 05/12/2024 5:12 AM EDT Narrative Resulting Agency Comment Spec In Lab Juan José Harrison MD CHEMISTRY ORDERABLES Performing Organization Address [facility] Co de Phone Number [facility] [place] [address] * (ABNORMAL) Differential, Automated (05/12/2024 4:45 AM EDT) [facility] Neutrophil % 87.9 % [facility] Neutrophil Absolute 17.31(H) 1.70 - 6.10 x10(3)/mc L [facility] Lymph % 3.9 % [facility] Lymphocytes Abs 0.8(L) 0.9 - 3.2 x10(3)/mc L [facility] Monocyte % 7.4 % [facility] Monocyte Abs 1.4(H) 0.3 - 0.9 x10(3)/ L [facility] Eos % 0.0 % [facility] Eosinophils Abs 0.0 0.0 - 0.4 x10(3)/ L [facility] Basophil % 0.1 % [facility] Baso Absolute 0.0 0.0 - 0.1 x10(3)/ L [facility] Immature Gran % 0.70 % [facility] Comment: Immature granulocytes(IG's)percentage and absolute count will include metamyelocytes, myelocytes, and promyelocytes. Blood smears from CBCs yielding IG's will be scanned manually for concordance. If this scan disagrees with the automated IG or if promyelocytes are noted, a manual differential will be performed. Immature Gran Absolute 0.14(H) 0.00 - 0.04 x10(3)/ L [facility] Blood 05/12/2024 4:45 AM EDT 05/12/2024 5:06 AM EDT Narrative Resulting Agency Comment Spec In Lab Carlotta Davis MD HEMATOLOGY OR DERABLES Performing Organization Address City/State/[facility] Co de Phone Number [facility] [place] [address] * (ABNORMAL) Hemogram (05/12/2024 4:45 AM EDT) White Blood Cell 19.7(H) 4.0 - 9.5 x10(3)/ L [facility] Red Blood Cell 3.58(L) 4.58 - 5.54 x10(6)/mc L [facility] NRBC% auto 0.0 % [facility] NRBC Absolute 0.000 0.000 - 0.000 x10(3)/mc L [facility] Blood 05/12/2024 4:45 AM EDT 05/12/2024 5:06 AM EDT Narrative Resulting Agency Comment Spec In Lab Carlotta Davis MD HEMATOLOGY OR DERABLES Performing Organization Address [facility] Co de Phone Number [facility] [place] [address] * Magnesium (05/12/2024 4:45 AM EDT) Magnesium 1.07 0.69 - 1.07 mmol/L [facility] Blood 05/12/2024 4:45 AM EDT 05/12/2024 5:06 AM EDT Narrative Resulting Agency Comment Spec In Lab Mary De La Fuente MD CHEMISTRY ORDERABL ES Performing Organization Address [facility] Co de Phone Number [facility] [place] [address] * Phosphorus (05/12/2024 4:45 AM EDT) Phosphorus 2.7 2.5 - 4.5 mg/dL [facility] Blood 05/12/2024 4:45 AM EDT 05/12/2024 5:06 AM EDT Narrative Resulting Agency Comment Spec In Lab Mary De La Fuente MD CHEMISTRY ORDERABL ES [facility] [place] [address] * (ABNORMAL) Basic Metabolic Panel (non-fasting) (05/12/2024 [...] MD CHEMISTRY ORDERABL ES Performing Organization Address City/[facility] Co de Phone Number [facility] [place] [address] * ANGY, legs, multiple levels (05/12/2024 3:22 AM EDT) VB Text Report Department: Vascular Surgery Lab Patient: [id number] (JOSSY SHANKS) CPT: [id number] Referring Physician: THO DICKSON ?? Phone: Indications: [...] CARE TEST ORDERABLES [facility] [place] [address] * Vancomycin Level, Random (05/11/2024 8:10 PM EDT) Vancomycin, Random 21.7 mg/L [facility] Comment: This level is for determination of the patient's vancomycin rpeu-dkuji-zdr-curve (AUC) value. Contact the inpatient pharmacy for interpretation. Blood 05/11/2024 8:10 PM EDT 05/11/2024 8:32 PM EDT Treva Diaz MD CHEMISTRY ORDERABL ES Performing Organization Address [facility]/ZIP Co de Phone Number [facility] [place] [address] * POCT Glucose (05/11/2024 4:34 PM EDT) Glucose, POC 197 65 - 199 mg/dL [facility] Comment: Supplemental ranges: <140 mg/dL before meals <180 mg/dL all other times of the day Blood 05/11/2024 4:34 PM EDT 05/11/2024 4:34 PM EDT Treva Diaz MD POINT OF CARE TEST ORDERABLES Performing Organization Address City/[facility]/ZIP Co de Phone Number [facility] [place] [address] * (ABNORMAL) POCT Glucose (05/11/2024 11:47 AM EDT) Glucose, POC 255(H) 65 - 199 mg/dL [facility] Comment: Supplemental ranges: <140 mg/dL before meals <180 mg/dL all other times of the day Blood 05/11/2024 11:4 7 AM EDT 05/11/2024 11:47 AM EDT Treva Diaz MD POINT OF CARE TEST ORDERABLES [facility] [place] [address] * (ABNORMAL) POCT Glucose (05/11/2024 6:57 AM EDT) Glucose, POC 200(H) 65 - 199 mg/dL [facility] Comment: Supplemental ranges: <140 mg/dL before meals <180 mg/dL all other times of the day Blood 05/11/2024 6:57 AM EDT 05/11/2024 6:57 AM EDT Treva Diaz MD POINT OF CARE TEST ORDERABLES [facility] [place] [address] * (ABNORMAL) Differential, Automated (05/11/2024 2:00 AM EDT) Neutrophil % 85.8 % [facility] Neutrophil Absolute 22.16(H) 1.70 - 6.10 x10(3)/mc L [facility] Lymph % 1.5 % [facility] Lymphocytes Abs 0.4(L) 0.9 - 3.2 x10(3)/mc L [facility] Monocyte % 4.9 % [facility] Monocyte Abs 1.3(H) 0.3 - 0.9 x10(3)/mc L [facility] Eos % 0.0 % [facility] Eosinophils Abs 0.0 0.0 - 0.4 x10(3)/ L [facility] Basophil % 0.1 % [facility] Baso Absolute 0.0 0.0 - 0.1 x10(3)/ L [facility] Immature Gran % 7.70 % [facility] Comment: Immature granulocytes(IG's)percentage and absolute count will include metamyelocytes, myelocytes, and promyelocytes. Blood smears from CBCs yielding IG's will be scanned manually for concordance. If this scan disagrees with the automated IG or if promyelocytes are noted, a manual differential will be performed. Immature Gran Absolute 1.98(H) 0.00 - 0.04 x10(3)/[facility] Blood 05/11/2024 2:00 AM EDT 05/11/2024 2:07 AM EDT Narrative Resulting Agency Comment Spec In Lab Carlotta Davis MD HEMATOLOGY OR DERABLES [facility] [place] [address] * (ABNORMAL) Hemogram (05/11/2024 2:00 AM EDT) White Blood Cell 25.8(H) 4.0 - 9.5 x10(3)/ L [facility] [...] Platelet 141(L) 145 - 357 x10(3)/mc L [facility] RDW Standard Deviation 51.2(H) 36.0 - 45.0 fL [facility] RDW coefficient of variation 15.6(H) 11.4 - 13.8 % [facility] Mean Platelet Volume 12.9 7.6 - 12.9 fL [facility] NRBC% auto 0.0 % [facility] NRBC Absolute 0.000 0.000 - 0.000 x10(3)/mc L [facility] Blood 05/11/2024 2:00 AM EDT 05/11/2024 2:07 AM EDT Narrative Resulting Agency Comment Spec In Lab Carlotta Davis MD HEMATOLOGY OR DERABLES Performing Organization Address City/[facility]/ZIP Co de Phone Number [facility] [place] [address] * Magnesium (05/11/2024 2:00 AM EDT) Magnesium 1.01 0.69 - 1.07 mmol/L [facility] Blood 05/11/2024 2:00 AM EDT 05/11/2024 2:07 AM EDT Narrative Resulting Agency Comment Spec In Lab Mary De La Fuente MD CHEMISTRY ORDERABL ES Performing Organization Address City/[facility]/ZIP Co de Phone Number [facility] [place] [address] * Phosphorus (05/11/2024 2:00 AM EDT) Phosphorus 4.0 2.5 - 4.5 mg/dL [facility] Blood 05/11/2024 2:00 AM EDT 05/11/2024 2:07 AM EDT Narrative Resulting Agency Comment Spec In Lab Mary De La Fuente MD CHEMISTRY ORDERABL ES [facility] [place] [address] * (ABNORMAL) Basic Metabolic Panel (non-fasting) (05/11/2024 [...] MD CHEMISTRY ORDERABL ES Performing Organization Address [facility] de Phone Number [facility] [place] [address] * Vancomycin Level, Random (05/11/2024 2:00 AM EDT) Vancomycin, Random 21.4 mg/L [facility] Comment: This level is for determination of the patient's vancomycin txpu-ykdwb-fbj-curve (AUC) value. Contact the inpatient pharmacy for interpretation. Blood 05/11/2024 2:00 AM EDT 05/11/2024 2:07 AM EDT Mary De La Fuente MD CHEMISTRY ORDERABL ES Performing Organization Address [facility] Phone Number [facility] [place] [address] * (ABNORMAL) POCT Glucose (05/10/2024 11:40 PM EDT) Glucose, POC 230(H) 65 - 199 mg/dL [facility] Comment: Supplemental ranges: <140 mg/dL before meals <180 mg/dL all other times of the day Blood 05/10/2024 11:4 0 PM EDT 05/10/2024 11:40 PM EDT Treva Diaz MD POINT OF CARE TEST ORDERABLES Performing Organization Address [facility] Co de Phone Number [facility] [place] [address] * POCT Glucose (05/10/2024 4:09 PM EDT) Glucose, POC 189 65 - 199 mg/dL [facility] Comment: Supplemental ranges: <140 mg/dL before meals <180 mg/dL all other times of the day Blood 05/10/2024 4:09 PM EDT 05/10/2024 4:09 PM EDT Treva Diaz MD POINT OF CARE TEST ORDERABLES Performing Organization Address City/[facility]/ZIP Co de Phone Number [facility] [place] [address] * POCT Glucose (05/10/2024 12:11 PM EDT) Glucose, POC 185 65 - 199 mg/dL [facility] Comment: Supplemental ranges: <140 mg/dL before meals <180 mg/dL all other times of the day Blood 05/10/2024 12:1 1 PM EDT 05/10/2024 12:11 PM EDT Mary De La Fuente MD POINT OF CARE TEST ORDERABLES Performing Organization Address [facility] Co de Phone Number [facility] [place] [address] * Vancomycin Level, Random (05/10/2024 12:00 PM EDT) Vancomycin, Random 15.5 mg/L [facility] Comment: This level is for determination of the patient's vancomycin psam-qshvz-bdo-curve (AUC) value. Contact the inpatient pharmacy for interpretation. Blood 05/10/2024 12:0 0 PM EDT 05/10/2024 12:21 PM EDT Tho Dickson MD CHEMISTRY ORDERABLES Performing Organization Address City/[facility]/ZIP Co de Phone Number [facility] [place] [address] * POCT Glucose (05/10/2024 8:09 AM EDT) Glucose, POC 195 65 - 199 mg/dL [facility] Comment: Supplemental ranges: <140 mg/dL before meals <180 mg/dL all other times of the day Blood 05/10/2024 8:09 AM EDT 05/10/2024 8:09 AM EDT Mary De La Fuente MD POINT OF CARE TEST ORDERABLES Performing Organization Address City/[facility]/ZIP Co de Phone Number [facility] [place] [address] * CK (05/10/2024 6:55 AM EDT) Creatine Kinase 58 0 - 200 unit/L [facility] Blood Venous Draw / Unknown 05/10/2024 6:55 AM EDT 05/10/2024 7:41 AM EDT Narrative Resulting Agency Comment Spec In Lab Emmanuel Corey DO CHEMISTRY ORDERABLES Performing Organization Address [facility] Co de Phone Number [facility] [place] [address] * (ABNORMAL) Phosphorus (05/10/2024 6:55 AM EDT) Phosphorus 5.1(H) 2.5 - 4.5 mg/dL [facility] Blood 05/10/2024 6:55 AM EDT 05/10/2024 6:59 AM EDT Narrative Resulting Agency Comment Spec In Lab Tho Dickson MD CHEMISTRY ORDERABLES Performing Organization Address [facility]/ZIP Co de Phone Number [facility] [place] [address] * (ABNORMAL) Basic Metabolic Panel (non-fasting) (05/10/2024 6:55 AM EDT) Glucose 193 65 - 199 mg/dL [facility] [...] MD CHEMISTRY ORDERABLES [facility] [place] [place] [address] * Lactate, whole blood, send to lab ([facility]) (05/10/2024 6:55 AM EDT) Lactate WB 1.7 0.5 - 2.2 mmol/L [facility] Blood 05/10/2024 6:55 AM EDT 05/10/2024 7:00 AM EDT Narrative Resulting Agency Comment Spec In Lab Tho Dickson MD CHEMISTRY ORDERABLES [facility] [place] [place] [address] * MRI Foot wwo Contrast Right (05/10/2024 5:51 AM EDT) WORKSTATION ID [id number] RAD Anatomical Region Laterality Modality Foot Right [...] who have questions please contact the health long term acute care registered nurse that requested your imaging first. ? Narrative [...] patients who have questions please contactthe health long term acute care registered nurse that requested your imaging first. Tho Dickson MD [facility] MRI ORDERABLES * Creatinine, urine, random (05/10/2024 4:15 AM EDT) Creatinine, Urine 106 mg/dL [facility] Urine 05/10/2024 4:15 AM EDT 05/10/2024 4:23 AM EDT Narrative Resulting Agency Comment Spec In Lab Tho Dickson MD URINE ORDERABLES Performing Organization Address [facility] Co de Phone Number [facility] [place] [address] * Sodium, urine, random (05/10/2024 4:15 AM EDT) Sodium, Urine <20 mmol/L [facility] Urine 05/10/2024 4:15 AM EDT 05/10/2024 4:23 AM EDT Narrative Resulting Agency Comment Spec In Lab Tho Dickson MD URINE ORDERABLES Performing Organization Address [facility]/ZIP Co de Phone Number [facility] [place] [address] * Urea nitrogen, urine, random (05/10/2024 4:15 AM EDT) Urea Nitrogen, Urine 580 mg/dL [facility] Urine 05/10/2024 4:15 AM EDT 05/10/2024 4:23 AM EDT Narrative Resulting Agency Comment Spec In Lab Tho Dickson MD URINE ORDERABLES Performing Organization Address [facility] Co de Phone Number [facility] [place] [address] * (ABNORMAL) Skin/Superficial Wound Culture Toe (05/10/2024 [...] - GENER AL ORDERABLES Performing Organization Address [facility]/ZIP Co de Phone Number [facility] [place] [address] * (ABNORMAL) Urinalysis without microscopic (05/10/2024 2:42 [...] CENTER LABORATORY Leukocytes, Urine Dipstick Small(A) Negative [facility] Appearance, Urine Dipstick Cloudy(A) Clear [facility] Specific [place] Urine Automated 1.017 1.005 - 1.030 [facility] Color, Urine Dipstick [place](A) Yellow [facility] Urine 05/10/2024 2:42 AM EDT 05/10/2024 2:57 AM EDT Narrative Resulting Agency Comment Spec In Lab Tho Dickson MD URINE ORDERABLES [facility] [place] [place] [address] * XR Chest One View (05/10/2024 2:37 AM EDT) WORKSTATION ID [id number] RAD Anatomical Region Laterality Modality Chest N/A Digital Radiogra phy Impressions 05/10/2024 3:27 AM EDT Bibasilar atelectasis. Thank you for letting us participate in the care of this patient. ??If you are a health care provider and have any questions regarding this report, please contact the number below. ??For patients who have questions please contact the health long term acute care registered nurse that requested your imaging first. ? Narrative [...] patients who have questions please contactthe health long term acute care registered nurse that requested your imaging first. Tho Dickson MD IMG DX ORDERABLES * Blood culture (05/10/2024 2:32 AM EDT) Blood Culture No growth at 5 days. [facility] Blood STRUCTURE OF RIGHT HAND / Unknown 05/10/2024 2:32 AM EDT 05/10/2024 4:17 AM EDT Narrative Resulting Agency Comment Spec In Lab Tho Dickson MD MICROBIOLOGY - BLOOD ORDERABLES Performing Organization Address [facility] Co de Phone Number [facility] [place] [address] * (ABNORMAL) POCT Glucose (05/10/2024 2:30 AM EDT) Pathologist [facility] Glucose, POC 201(H) 65 - 199 mg/dL [facility] Comment: Supplemental ranges: <140 mg/dL before meals <180 mg/dL all other times of the day Blood 05/10/2024 2:30 AM EDT 05/10/2024 2:30 AM EDT Tho Dickson MD POINT OF CARE TEST O RDERABLES Performing Organization Address [facility] Co de Phone Number [facility] [place] [address] * Vancomycin Level, Random (05/10/2024 2:20 AM EDT) [facility] Vancomycin, Random 26.9 mg/L [facility] Comment: This level is for determination of the patient's vancomycin sefw-cgant-pgm-curve (AUC) value. Contact the inpatient pharmacy for interpretation. Blood Venous Draw / Unknown 05/10/2024 2:20 AM EDT 05/10/2024 2:38 AM EDT Tho Dickson MD CHEMISTRY ORDERABLES Performing Organization Address [facility] Co de Phone Number [facility] [place] [address] * Scan, Peripheral Blood (05/10/2024 2:20 AM EDT) Pathologist [facility] Plat estimate Normal [facility] RBC Morphology Abnormal [facility] Ovalocytes 1-5 /HPF [facility] [place] Cells 1-5 /HPF [facility] Plat, Giant Less than 1 /HPF [facility] Blood 05/10/2024 2:20 AM EDT 05/10/2024 2:36 AM EDT Narrative Resulting Agency Comment Spec In Lab Anita Camacho MD HEMATOLOGY ORDERABLE S [facility] [place] [address] * Type and Screen Validity (05/10/2024 2:20 AM EDT) Pathologist [facility] T&S only valid at [facility] LABORATORY Comment:This Type and Screen result is only valid at the [facility] Blood 05/10/2024 2:20 AM EDT 05/10/2024 2:49 AM EDT Narrative Resulting Agency Comment Spec In Lab Anita Camacho MD BLOOD BANK LAB ORDER ANGELIQUE Performing Organization Address City/[facility]/ZIP Co de Phone Number [facility] [place] [address] * ABORH Recheck Status (05/10/2024 2:20 AM EDT) ABORH Recheck Order Order Placed [facility] ABORH Type Recheck Completed [facility] Blood 05/10/2024 2:20 AM EDT 05/10/2024 2:49 AM EDT Narrative Resulting Agency Comment Spec In Lab Anita Camacho MD BLOOD BANK LAB ORDER ANGELIQUE [facility] [place] [address] * (ABNORMAL) Differential, Automated (05/10/2024 2:20 AM EDT) Neutrophil % 89.2 % [facility] Neutrophil Absolute 25.39(H) 1.70 - 6.10 x10(3)/ L [facility] Lymph % 1.2 % [facility] Lymphocytes Abs 0.4(L) 0.9 - 3.2 x10(3)/ L [facility] Monocyte % 2.9 % [facility] Monocyte Abs 0.8 0.3 - 0.9 x10(3)/[facility] Eos % 0.0 % [facility] Eosinophils Abs 0.0 0.0 - 0.4 x10(3)/[facility] Basophil % 0.2 % [facility] Baso Absolute 0.1 0.0 - 0.1 x10(3)/[facility] Immature Gran % 6.50 % [facility] Comment: Immature granulocytes(IG's)percentage and absolute count will include metamyelocytes, myelocytes, and promyelocytes. Blood smears from CBCs yielding IG's will be scanned manually for concordance. If this scan disagrees with the automated IG or if promyelocytes are noted, a manual differential will be performed. Immature Gran Absolute 1.85(H) 0.00 - 0.04 x10(3)/[facility] Blood 05/10/2024 2:20 AM EDT 05/10/2024 2:36 AM EDT Narrative Resulting Agency Comment Spec In Lab Anita Camacho MD HEMATOLOGY ORDERABLE S [facility] [place] [address] * (ABNORMAL) Hemogram (05/10/2024 2:20 AM EDT) White Blood Cell 28.5(H) 4.0 - 9.5 x10(3)/[facility] Red Blood Cell 3.83(L) 4.58 - 5.54 x10(6)/[facility] Hemoglobin 11.4(L) 13.7 - 16.5 [...] Platelet Volume 12.8 7.6 - 12.9 fL [facility] NRBC% auto 0.0 % [facility] NRBC Absolute 0.000 0.000 - 0.000 x10(3)/mc L [facility] Blood 05/10/2024 2:20 AM EDT 05/10/2024 2:36 AM EDT Narrative Resulting Agency Comment Spec In Lab Anita Camacho MD HEMATOLOGY ORDERABLE S [facility] [place] [address] * (ABNORMAL) Hemoglobin A1c (05/10/2024 2:20 AM [...] Mellitus, Diabetes Care 2013; 36: Suppl. 1, P57-21 Estimated Average Glucose See note mg/dL [facility] Comment: Estimated Average Glucose not appropriate for patients over 70 years of age. Blood 05/10/2024 2:20 AM EDT 05/10/2024 2:36 AM EDT Narrative Resulting Agency Comment Spec In Lab Tho Dickson MD CHEMISTRY ORDERABLES Performing Organization Address [facility] Co de Phone Number [facility] [place] [address] * Hepatic Function Panel (05/10/2024 2:20 AM [...] Dickson MD CHEMISTRY ORDERABLES Performing Organization Address [facility] Co de Phone Number [facility] [place] [address] * (ABNORMAL) Phosphorus (05/10/2024 2:20 AM EDT) Phosphorus 4.6(H) 2.5 - 4.5 mg/dL [facility] Blood 05/10/2024 2:20 AM EDT 05/10/2024 2:36 AM EDT Narrative Resulting Agency Comment Spec In Lab Tho Dickson MD CHEMISTRY ORDERABLES Performing Organization Address City/[facility]/ZIP Co de Phone Number [facility] [place] [address] * Magnesium (05/10/2024 2:20 AM EDT) Magnesium 0.85 0.69 - 1.07 mmol/L [facility] Blood 05/10/2024 2:20 AM EDT 05/10/2024 2:36 AM EDT Narrative Resulting Agency Comment Spec In Lab Tho Dickson MD CHEMISTRY ORDERABLES Performing Organization Address [facility] Co de Phone Number [facility] [place] [address] * (ABNORMAL) Basic Metabolic Panel (non-fasting) (05/10/2024 2:20 AM EDT) Pathologist [facility] Glucose 196 65 - 199 mg/dL [facility] [...] Dickson MD CHEMISTRY ORDERABLES Performing Organization Address [facility] Phone Number [facility] [place] [address] * (ABNORMAL) Prothrombin Time (05/10/2024 2:20 AM [...] MD HEMATOLOGY ORDERABLE S Performing Organization Address [facility] Co de Phone Number [facility] [place] [address] * Type and screen ([facility]/TARA) (05/10/2024 2:20 AM EDT) ABORH Type O POSITIVE [facility] Patient BB History Not Found [facility] Expires at [id number] on: 05-13-2024 [facility] Ab Screen Interp Negative [facility] Blood 05/10/2024 2:20 AM EDT 05/10/2024 2:20 AM EDT Narrative [facility] - 05/10/2024 2:20 AM EDT This Type and Screen result is only valid at the [facility] Resulting Agency Comment Spec In Lab Tho Dickson MD BLOOD BANK LAB ORDER ANGELIQUE [facility] [place] [address] * (ABNORMAL) Lactate, whole blood, send to lab ([facility]) (05/10/2024 2:20 AM EDT) Lactate WB 2.3(H) 0.5 - 2.2 mmol/L [facility] Blood 05/10/2024 2:20 AM EDT 05/10/2024 2:36 AM EDT Narrative Resulting Agency Comment Spec In Lab Tho Dickson MD CHEMISTRY ORDERABLES Performing Organization Address City/[facility]/ZIP Co de Phone Number [facility] [place] [address] documented in this encounter Visit Diagnoses Not [...] Kidney Disease (CKD) 2038 (Given - Provider: Aylssa Villalobos RN) 0900 (Due)1318 (DEC Hold - [...] HOURS, First dose (after last modification) on [place] 05/18/24 at 1430, Until Discontinued, Routine 0258 [...] Zhao, RN) 0030 (Not Given - Provider: Samia Quinteros, RN - Reason: Patient/family refused)0630 (Not [...] - Reason: Transfer to a Procedural area)175 ([facility] Unhold - Provider: Admin Adt) midazolam (pf) [...] Until Sun05/23/24 at 1815, Pain, Routine 1318 ([facility] Hold - Provider: Admin Adt - [...] documented as of this encounter Care Teams Sql Analyst Relationship 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
--- OUTSIDE RECORDS SUMMARY | 2024-06-06 23:59 | XMS_ITS | Encounter Summary ---
[place] [address] Care Team Providers Care Skiver Heel Tap Name Role Phone None Primary Care Provider Unavailabl e Reason for Visit * Auth/Cert (Routine) Specialty Diagnoses / Procedures Referred By Contac t Referred To Contact Diagnoses Septic shock septiic shock Procedures ER Tho Aquino MD [facility] [place] [address] [facility] Referral ID Status Reason Start Date Expiration Date Visits Re quested Visits Authorized [id number] 1 1 Encounter Details Date Type Department Care Team (Late st Contact Info) Description 05/14/2024 10:37 AM EDT Anesthesia [place] [id number] Gertrudis Kimball MD [facility] [place] [address] Kimberlee Fontenot MD [facility] [address] Anesthesia Record Procedure Summary Procedure Name Responsible [...] Procedure Summary Date: 05/14/24 Room / Location: [facility] OR [address] [place] [address] MAIN OR Anesthesia Start: 1037 Anesthesia Stop: 1219 Procedure: AMPUTATION, TRANSMETATARSAL TOE, ONE TOE (WRVU 6.64) (Right: Foot) Diagnosis: (right second toe osteomyelitis) Surgeons: Elkin Garcia MD Responsible Provider: Gertrudis Kimball MD Anesthesia Type: general ASA Status: 3 All Anesthesia Providers: Anesthesiologist: Gertrudis Kimball MD [employer]OR FEEDER: Fátima Garcia CRNA Vitals Value Taken Time BP 142/72 05/14/24 1415 Temp 36.4 ??C (97.5 ??F) 05/14/24 1415 Pulse 96 05/14/24 1427 Resp 21 05/14/24 1430 SpO2 96 % 05/14/24 1442 Pain Level 3 05/14/24 1430 Vitals shown include unfiled device data. Patient Location: PAC[facility] Level of Consciousness: Conscious but Sleepy [...] risks discussed with patient. Plan discussed with [employer] CON[employer]YOR FEEDER. Anesthesia Screening documented in this encounter Plan of Treatment Upcoming Encounters Date Type Department Care Team (Late st Contact Info) Description 06/10/2024 10:30 AM EDT Office [place] [address] Elkin Garcia MD [facility] [place] [address] documented as of this encounter Visit Diagnoses [...] mg documented in this encounter Care Teams Skiver Heel Tap Relationship 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
--- OUTSIDE RECORDS SUMMARY | 2024-06-06 23:59 | XMS_ITS | Encounter Summary ---
Author Organization [facility] [place] [address] Care Team Providers Care Combination Man Name Role Phone None Primary Care Provider [...] 10:30 AM EDT Office [place] [address] Elkin Garcia MD [facility] [place] [address] documented as of this encounter Visit Diagnoses Not on filedocumented in this encounter Care Teams Combination Man Relationship 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
[2024-06-07] VITALS (80 sets, daily range): BP systolic 89–162; BP diastolic 51–92; PULSE 66–112; RESP 2–39; TEMP 36.6–37.1; O2SAT 92–100
--- OUTSIDE RECORDS SUMMARY | 2024-06-07 | XMS_ITS | Encounter Summary ---
[place] [address] Care Team Providers Care Plate Corrector Name Role Phone None Primary Care Provider Unavailabl e Reason for Visit * Auth/Cert (Routine) Specialty Diagnoses / Procedures Referred By Contac t Referred To Contact Diagnoses Septic shock septiic shock Procedures ER Tho Aquino MD [facility] [place] [address] [facility] Referral ID Status Reason Start Date Expiration Date Visits Re quested Visits Authorized [id number] 1 1 Encounter Details Date Type Department Care Team (Late st Contact Info) Description 05/14/2024 10:00 AM EDT - 05/14/2024 11:24 AM EDT [place] [id number] Elkin Garcia MD [facility] [place] [address] AMPUTATION, TRANSMETATARSAL TOE, ONE TOE (WRVU 6.64) Social History Tobacco Use Types Packs/Day Years Used Date Smoking Tobacco: Former Cigarettes 14 0.6 S tarted: 2023 Smokeless Tobacco: Never Tobacco Cessation:Counseling Given: Not Answered Alcohol Use Standard Drinks/Week Comments Yes 0 (1 standard drink = 0.6 oz pur e alcohol) 3-4 PER [facility] Inpatient Questions Answer Date Recorded Does Anyone [...] Jossy Shanks Patient Age: 69 y.o. Language: Latvian Race: White Ethnicity: Not nor Admit date: [...] please contact your inpatient physician through the [facility] Fur Vault Attendant . Issues afterhours and on weekends will [...] oxygen, HFpEF, HTN who presented to [facility] for rt LE cellulitis, transferred to [facility] for septic shock. [...] knee. Fevers & chills for last 24hrs. [place] lightheaded, weak, & couldn't get out of [...] prior to OSH departure. On arrival to [facility]: HR 96, o2 [...] care, the same day as transfer to [facility]. On the general [...] border dressing. (Melgisorb Ag 6x6 PS # [id number]) (Melgisorb Ag 4x4 PS # [id number]) Sacrum/ischium: open to air, utilize Z-guard if [...] 05/10/2024 2:37 AM) Result Value WORKSTATION ID [id number] Impression Bibasilar atelectasis. Thank you for letting us participate in the care of this patient. If you are a health care provider and have any questions regarding this report, please contact the number below. For patients who have questions please contact the health childcare center administrator that requested your imaging first. Foot wwo Contrast Right (Exam End: 05/10/2024 5:51 AM) Result Value WORKSTATION ID [id number] Impression 1. Soft tissue irregularity of the [...] who have questions please contact the health childcare center administrator that requested your imaging first. Electronically signed by: Trinidad Mota MD, [facility] ([phone]), at 05/10/2024 12:56 PM US Retroperitoneal Complete (Exam End: 05/20/2024 10:36 AM) Result Value WORKSTATION ID [id number] Impression 1. Very limited exam secondary to [...] AM Electronically signed by: Teofilo Ruiz MD, [facility] ([phone]), at 05/20/2024 11:30 AM Thank you for letting us participate in the care of this patient. If you are a health care provider and have any questions regarding this report, please contact the number above. For patients who have questions, please contact the health childcare center administrator that requested your imaging first. Teofilo Ruiz, Staff Physician Electronically Signed Final Report 05/20/2024 11:36 am Pending Studies and Lab Data: Discharge Conditions/Prognosis: s/p Left 2nd toe amputation, recovering, requiring rehab. Back to baseline. Discharge to: [facility] Updated Allergies/ADRs: No Known Allergies [...] Center 06/03/2024 2:00 PM Lu Mcfarland APRN [facility] ID 5C [facility] 06/05/2024 4:00 PM Elkin Garcia MD [facility] ORTH 3C [facility] Your Discharge Medication [...] as much as possible. Call your doctor ([phone]) if you develop: Fever greater than 100.5 Severe nausea or vomiting Increasing pain that is not controlled by pain medications Increasing redness, swelling, or drainage from incisions Change in sensation FOLLOW-UP APPOINTMENTS: 1. You will have follow-up appointments at [facility] as indicated below in Future Appointment and Orders. 2. You will need to have x-rays prior to your follow-up appointment listed below. Please come to Radiology, desk 3T, 1 hour BEFORE that appointment for these x-rays. Future Appointments Date Time Provider Department Center 06/03/2024 2:00 PM Lu Mcfarland APRN [facility] ID 5C [facility] 06/05/2024 4:00 PM Elkin Garcia MD [facility] ORTH 3C [facility] If you have [...] the day after the procedure, use an seon-mey-laweiqm spray to numb your throat. Sucking on [...] occurs, please contact your Doctor. Please call [phone] before 8pm Mon-Fri with problems, questions or concerns. If you call after 8pm or on weekends, call the Hospital at [phone] and ask to speak to the Environmental Health Safety Manager evaluation manager and the paper bag press operator will contact that person for you. When should you call for help? Call [phone] anytime you think you may need emergency [...] any problems. Where can you learn more? [facility] View your After Visit Summary and more online at [email or web address] If you would like to provide feedback about your hospital experience, please call the Office of Patient and Family Relations at . If you have received this After Visit Summary in error, please immediately return it in person to the department, or notify the [facility] Privacy Office by calling toll free at between the hours of 8AM and 5PM to arrange for our retrieval of the documents at no cost to you. Content Version: 12.2 ?? [id number] [employer]. Care instructions adapted under license by [facility]. If you have questions about a medical condition or this instruction, always ask your healthcare professional. [employer] disclaims any warranty or liability for your [...] is during regular working hours, please call [phone]. If it is after 5 pm or a weekend or holiday, call [phone] and ask for the Psychological Examiner evaluation manager for Interventional Radiology. You have received medication [...] PM Lu Mcfarland APRN Infectious Disease at [facility] Arrive at: Manager Money Area 5C [phone] 06/05/2024 4:00 PM Elkin Garcia MD Orthopaedics at [facility] Arrive at: Manager Money Area 3C [phone] Future Orders Complete By Expires OPAT: Order / Recommendation for Post Discharge IV Antibiotic Management [LBE266 CPT(R)] As directed Process Instructions: If no progress note charted, please enter Clinical details in comments. Scheduling Instructions: Comments: - If this order was signed greater than 72 hours prior to [facility] discharge, please call to confirm the accuracy of this order. Please Fax all results to: OPAT Program Infectious Disease Section [facility], [place] [address] FAX: - After hours, please contact the Infectious Disease Physician evaluation manager at . - Line care instructions - see flush/heparin orders. Facilities may follow organizational policies/practices regarding heparin. - USP for medication administration/outbound supervisor and catheter care/maintenance authorized. HD Line [...] every Sunday fax results to OPAT at [phone]. Please draw labs off PICC line. Please see OPAT order for lab draw details. Please RN visit for IV ABX teaching and ongoing assessment. Mcfp for Medication Administration/Hookup and catheter care/maintenance: - Teach Patient/Caregiver goals/self-monitoring/therapy administration to independence per the Nursing Care Plan. - USP visit frequency; initial, weekly and 2 PRN [...] 05/20/2024 11:36 am) PATIENT INFO: ID #: [id number].O.B.: [id number] (69 yrs)(M) Name: JOSSY SHANKS Visit Date: 05/20/2024 10:34 am PERFORMED BY: Attending: Teofilo Ruiz MD Resident: Trinidad Light MD Performed By: Lulu Shin RDMS Referred By: SABA SPEARS Location: [place] SERVICE(S) PROVIDED: URETRO - Retroperitoneal Complete - [id number] INDICATIONS: CKD, increase BUN TECHNIQUE/SCAN QUALITY: Scan [...] 11:30 AMElectronically signed by: Teofilo Ruiz MD, [facility] ([phone]), at 05/20/2024 11:30 AM Thank you for letting us participate in the care of this patient. If you are a health care provider and have any questions regarding this report, please contact the number above. For patients whohave questions, please contact the health childcare center administrator that requested your imaging first. Teofilo Ruiz, Staff Physician Electronically Signed Final Report 05/20/2024 11:36 am My clinical question: Patient to establish for CKD management Do not type below here ERFRL_NEPH_CKD Questions: My question or request is: See comment Provider Contact Information: None None None Discharge References/Attachments Low Phosphorus Foods: General Info (Latvian) Low Potassium Foods: General Info (Latvian) documented in this encounter Discharge Instructions * [...] the day after the procedure, use an wezu-eti-vfavxar spray to numb your throat. Sucking on [...] occurs, please contact your Doctor. Please call [phone] before 8pm Mon-Fri with problems, questions or concerns. If you call after 8pm or on weekends, call the Hospital at [phone] and ask to speak to the Environmental Health Safety Manager evaluation manager and the paper bag press operator will contact that person for [...] any problems. Where can you learn more? [facility] View your After Visit Summary and more online at [email or web address] If you would like to provide feedback about your hospital experience, please call the Office of Patient and Family Relations at . If you have received this After Visit Summary in error, please immediately return it in person to the department, or notify the [facility] Privacy Office by calling toll free at between the hours of 8AM and 5PM to arrange for our retrieval of the documents at no cost to you. Content Version: 12.2 ?? [id number] [employer] Care instructions adapted under license by [facility]. If you have questions about a medical condition or this instruction, always ask your healthcare professional. [employer] disclaims any warranty or liability for your [...] is during regular working hours, please call [phone]. If it is after 5 pm or a weekend or holiday, call [phone] and ask for the Psychological Examiner evaluation manager for Interventional Radiology. You have received medication [...] Center 06/03/2024 2:00 PM Lu Mcfarland APRN [facility] ID 5C [facility] 06/05/2024 4:00 PM Elkin Garcia MD [facility] ORTH 3C [facility] Your Discharge Medication [...] as much as possible. Call your doctor ([phone]) if you develop: Fever greater than 100.5 Severe nausea or vomiting Increasing pain that is not controlled by pain medications Increasing redness, swelling, or drainage from incisions Change in sensation FOLLOW-UP APPOINTMENTS: 1. You will have follow-up appointments at [facility] as indicated below in Future Appointment and Orders. 2. You will need to have x-rays prior to your follow-up appointment listed below. Please come to Radiology, desk 3T, 1 hour BEFORE that appointment for these x-rays. Future Appointments Date Time Provider Department Center 06/03/2024 2:00 PM Lu Mcfarland APRN [facility] ID 5C [facility] 06/05/2024 4:00 PM Elkin Garcia MD [facility] ORTH 3C [facility] If you have [...] Everywhere. * Low Phosphorus Foods: General Info (Latvian) * Low Potassium Foods: General Info (Latvian) documented in this encounter Medications at Time [...] spent >30 minutes (Day of Discharge Code 34729) involved in the final examination of the patient, discussion of the hospital stay, instructions for continuing care to all relevant caregivers, and preparation of discharge records, prescriptions and referral forms. Plans Discharge to [facility] rehab Follow-up scheduled with ID, ortho, provider at [facility] Please see the Discharge Summary for complete details of any medication changes and additional plans. * Yg Jaffe - 05/23/2024 2:44 PM EDT Office of Care Management(OCM)/Optometrist/Practice Owner(RS) Patient Name: Jossy Shanks : 1955 Patient has been offered a SNF bed at [phone]. [facility] arranged for a BLS transport at 1530. Ambulance will need: Medicare ambulance form completed and signed (MD or Work Force Advisor) Copy of patient demographics [place] Out of Hospital DNR/DNI order, if active No MD to MD report necessary. Please call Nursing Report to , ask for knit goods cutter hand. Info to accompany patient: Narcotic Prescriptions Copies of Medication Administration Records and IV sheets for past two weeks. Plan: Optometrist/Practice Owner will be available to the patient and Work Force Advisor for further assistance. Patient to discharge to: [facility] [address] [place] [address] Yg Jaffe Optometrist/Practice Owner * Shirley Samuel RN - 05/23/2024 12:05 PM EDT Physician Certification Statement for Non-Emergency Ambulance Services Section I - General Information Jossy Spivey Rimma 1955 Medicare Number: n/a Transport Date: 05/23/2024 (PCS is valid for round trips on this date and for all repetitive trips in the 60-day range as noted below.) Origin: [facility] Destination: [facility] Is [...] van (i.e. seated during transport, without medical imaging tech or monitoring?): No 4) In addition to [...] the Centers of Medicare and Medicaid Services ([facility]) to support the determination of medical [...] AM Electronically signed by: Teofilo Ruiz MD, [facility] ([phone]), at 05/20/2024 11:30 AM Thank you for letting us participate in the care of this patient. If you are a health care provider and have any questions regarding this report, please contact the number above. For patients who have questions, please contact the health childcare center administrator that requested your imaging first. Teofilo [...] who have questions please contact the health childcare center administrator that requested your imaging first. Electronically signed by: Trinidad Mota MD, [facility] ([phone]), at 05/10/2024 12:56 PM XR Chest One View Final Result Bibasilar atelectasis. Thank you for letting us participate in the care of this patient. If you are a health care provider and have any questions regarding this report, please contact the number below. For patients who have questions please contact the health childcare center administrator that requested your imaging first. SCOPY: Reports [...] with them as documented. Tl Steele MD [facility] Gastroenterology * Irene [...] Zhao RN - 05/22/2024 12:47 PM EDT Horse Racing Analyst spoke with JACKIE Nuñez from Endo regarding [...] Galvan MD - 05/22/2024 6:57 AM EDT [facility] Medicine - Red Team Inpatient Progress [...] with PT - hoping to go to [facility] [facility] today Meds: pantoprazole 40 mg Intravenous BID [...] shoe, c/w pt - Bed ready at [facility] #IDDM Home regiment: 1.2mg liraglutide qd, [...] upcoming EGD, and availability of bed at [facility]. -ordered T&S in case continues to [...] Medicine Hospital Medicine Red Team - Pager [phone] Associated attestation - Saba Spears MD - [...] will transfuse and monitor response. Dispo to [facility] for rehab pending Hgb stability and EGD. I have examined the patient myself and personally reviewed all studies. In addition, I certify thatI am a D-H credentialed attending provider with admitting privileges and that the patient meets or has met medical necessity to require an inpatient IPI level of care meeting a minimum of two midnights or is on the [facility] inpatient only procedure list (status C) due to: OM requiring IV abx * Lazaro Aaron, LEATHER PRODUCTION MACHINE OPERATOR - 05/21/2024 4:05 PM EDT Physical Therapy [...] discharge to swing bed rehab facility vs shelter facility once medically ready for hospital discharge. Pt will continue to benefit from skilled physical therapy while in the hospital in order to maximize independence and safety with functional mobility and achieve therapeutic goals. Discharge Recommendations: Based on current findings- swing bed rehabilitation facility, shelter facility Discharge recommendation is based on the [...] with stable vital signs. Total Time: 34 (6114-6225) minutes. TAx2 Lazaro Aaron PTA Pager: [phone] Physical Therapy Inpatient Rehabilitation Department * Penny [...] decreased insight into deficits Vision: corrective lenses realtime captioner Endurance: decreased activity tolerance Vitals: Stable on [...] with activities of daily living. Discharge Recommendation: shelter facility, swing bed rehabilitation facility Equipment Recommendations: [...] Therapy: 40 ([facility] x3 ([phone])) Pager: [phone] Penny Rodriguez OT Occupational Therapy Rehabilitation Department [...] of : 1955 AGE: 69 y.o. Address: [address] [place], [place] [id number] (home) Mobile: Telephone Information: Referring Provider: Anna [...] Galvan MD - 05/21/2024 6:30 AM EDT [facility] Medicine - Red Team Inpatient [...] not evidently clear what is driving his FSIH on CKD. He will need his renalfunction [...] Medicine Hospital Medicine Red Team - Pager [phone] Associated attestation - Saba Spears MD - [...] mid 7s. Appreciate GI consult. Dispo to [facility] pending Hgb and EGD. I have examined the patient myself and personally reviewed all studies. In addition, I certify thatI am a D-H credentialed attending provider with admitting privileges and that the patient meets or has met medical necessity to require an inpatient IPI level of care meeting a minimum of two midnights or is on the [facility] inpatient only procedure list (status C) [...] Galvan MD - 05/20/2024 6:20 AM EDT [facility] Medicine - Red Team Inpatient Progress [...] adequately visualized to exclude non-occlusive thrombus 05/12 NAGY B/L Legs: Interpretation: RIGHT: No significant lower [...] Pip-tazo and vanc c/w CTX Planning for [facility], instead of [...] Mihaela Galvan MD 05/20/2024 PGY-3, Internal Medicine [facility] Medicine Red Team - Pager [phone] Associated attestation - Saba Spears MD - [...] discharge to swing bed rehab facility vs shelter facility once medically ready for hospital discharge. Pt will continue to benefit from skilled physical therapy while in the hospital in order to maximize independence and safety with functional mobility and achieve therapeutic goals. Discharge Recommendations: Based on current findings- swing bed rehabilitation facility, shelter facility Discharge recommendation is based on the [...] Ho PT, Doctor of Physical Therapy Pager: [phone] Physical Therapy Inpatient Rehabilitation Department * Rebeca [...] decreased insight into deficits Vision: corrective lenses realtime captioner Endurance: decreased activity tolerance Vitals: Stable on [...] with activities of daily living. Discharge Recommendation: shelter facility, swing bed rehabilitation facility Equipment Recommendations: [...] times/wk Total Minutes, Occupational Therapy: 47 Pager: [phone] Rebeca Moeller OT Occupational Therapy Rehabilitation Department [...] Medicine Hospital Medicine Red Team - Pager [phone] Associated attestation - Saba Spears MD - [...] of two midnights or is on the [facility] inpatient only procedure list (status C) [...] for a hospital day 9 nutrition evaluation. Horse Racing Analyst met with pt at bedside. Pt saidhe [...] unless consulted in the interim. Julissa Weathers Supply Planner * Mihaela Galvan MD - 05/18/2024 7:20 AM EDT [facility] Medicine - Red Team Inpatient [...] Mihaela Galvan MD 05/18/2024 PGY-3, Internal Medicine [facility] Medicine Red Team - Pager [phone] Associated attestation - Saba Spears MD - [...] of two midnights or is on the [facility] inpatient only procedure list (status C) [...] Harrison MD - 05/17/2024 6:28 AM EDT [facility] Red Team Inpatient Progress Note ID: Jossy [...] José Harrison MD 05/17/2024 PGY-3, Internal Medicine [facility] Medicine Red Team - Pager [phone] Associated attestation - Saba Spears MD - [...] performed by Elkin Garcia MD at [facility] Active Non-Hospital Problems Diagnosis [...] admission to next 72h) Start Ordered 05/14/24 5917 Weight bearing status UNTIL DISCONTINUED Process Instructions: [...] / OUT: 14:29-15:57 Total Time: 87 minutes; hubre angeles PT, Doctor of Physical Therapy Pager: [phone] Physical Therapy Inpatient Rehabilitation Department * Emmanuel [...] History: Housing: lives in a camper in [facility] Occupation: Former [employer], retired in 2016 [...] Component Value - Date/Time MRSA PCR Screen ([facility]/CGP/APD/NLH) [[id number]] Collected: 05/15/24 1615 Lab Status: Final result Specimen: Nasopharyngeal Swab Updated: 05/15/242012 MRSA Result Negative MRSA Interp -- Methicillin-resistant Staphylococcus aureus (MRSA) is NOT DETECTED The MRSA target DNA sequences (mec and SCC) were not detected within the acceptable ranges using the Xpert MRSA NxG on the GeneXpert Dx System ([employer]). This suggests the absence of MRSA in the patient specimen submitted for testing. This test is cleared by the U.S. Food and Drug Administration for clinical use and its performance characteristics have been verified by the [facility] at [facility]. This result does not rule out the presence of any other organisms. Rare false negative results may occur if MRSA is present at low concentrations with much higher concentrations of other organisms including MRSE or S. aureus with an empty SCC cassette. Comment: [VERIFIED DATE]05.15.24 Verified By:Lupe Jensen (Electronic Signature) Tissue Culture, Aerobic & Anaerobic Toe [[id number]] (Abnormal) Collected: 05/14/24 1133 Lab Status: Preliminary result Specimen: Toe Updated: 05/15/24 1212 Tissue culture [[id number]] (Abnormal) Collected: 05/14/24 1133 Lab Status: Preliminary result Specimen: Toe Updated: 05/15/24 1212 Tissue Culture No growth to date. Gram Stain -- Few Neutrophils seen Rare Gram Positive Cocci in pairs seen Results called to and read back by Dr. Mihaela Galvan 05/14/24 14:57:00 Organism Gram Positive Cocci in pairs Anaerobic Culture [[id number]] Collected: 05/14/24 1133 Lab Status: Preliminary result Specimen: Toe Updated: 05/15/24 1124 Anaerobic Culture No anaerobic organisms isolated to date Blood culture [[id number]] Collected: 05/10/24 0232 Lab Status: Final result Specimen: Blood from Hand, Right Updated: 05/15/24 0701 Blood Culture No growth at 5 days. Skin/Superficial Wound Culture Toe [[id number]] (Abnormal) Collected: 05/10/24 0256 Lab Status: Final [...] follow. Please page ID Red team (pager [phone]) with questions or concerns. Emmanuel Corey, DO Internal Medicine PGY-2 Pager: [phone] Epic Chat 05/16/2024 Associated attestation - Rodriguez [...] from the original note were not included. [facility] Medicine - Red Team Inpatient Progress [...] Intake/Output Summary (Last 24 hours) at 05/16/2024 0606 Last data filed at 05/16/2024 0355 Gross [...] Component Value - Date/Time MRSA PCR Screen ([facility]/CGP/APD/NLH) [[id number]] Collected: 05/15/24 1615 Lab Status: Final result Specimen: Nasopharyngeal Swab Updated: 05/15/242012 MRSA Result Negative MRSA Interp -- Methicillin-resistant Staphylococcus aureus (MRSA) is NOT DETECTED The MRSA target DNA sequences (mec and SCC) were not detected within the acceptable ranges using the Xpert MRSA NxG on the GeneXpert Dx System ([employer]). This suggests the absence of MRSA in the patient specimen submitted for testing. This test is cleared by the U.S. Food and Drug Administration for clinical use and its performance characteristics have been verified by the [facility] at [facility]. This result does not rule out the presence of any other organisms. Rare false negative results may occur if MRSA is present at low concentrations with much higher concentrations of other organisms including MRSE or S. aureus with an empty SCC cassette. Comment: [VERIFIED DATE]05.15.24 Verified By:Lupe Jensen (Electronic Signature) Tissue Culture, Aerobic & Anaerobic Toe [[id number]] (Abnormal) Collected: 05/14/24 113 Lab Status: Preliminary result Specimen: Toe Updated: 05/15/24 1212 Tissue culture [[id number]] (Abnormal) Collected: 05/14/24 113 Lab Status: Preliminary result Specimen: Toe Updated: 05/15/24 121 Tissue Culture No growth to date. Gram Stain -- Few Neutrophils seen Rare Gram Positive Cocci in pairs seen Results called to and read back by Dr. Mihaela Galvan 05/14/24 14:57:00 Organism Gram Positive Cocci in pairs Anaerobic Culture [[id number]] Collected: 05/14/24 113 Lab Status: Preliminary result Specimen: Toe Updated: 05/15/24 1124 Anaerobic Culture No anaerobic organisms isolated to date Blood culture [[id number]] Collected: 05/10/24 0232 Lab Status: Final result Specimen: Blood from Hand, Right Updated: 05/15/24 0701 Blood Culture No growth at 5 days. Skin/Superficial Wound Culture Toe [[id number]] (Abnormal) Collected: 05/10/24 0256 Lab Status: Final [...] PGY-1, Internal Medicine Red Team - Pager [phone] Associated attestation - Treva Diaz MD - [...] likely suture removal on 06/05/24. Please page [phone] with any questions or concerns. Activity: NWB until forefoot offloading shoe DVT prophylaxis: per primary, rec 30 days LVX or ASA81 BID Closure: Sutures (to be removed at Orthopaedic follow-up appointment) Dressing: bacitracin, xeroform, 4x4, kerlix, DEREK x 7 days Antibiotics: per primary Isra Rodriguez IV, DO 05/16/2024 Future Appointments Date Time Provider Department Center 06/05/2024 4:00 PM Elkin Garcia MD [facility] ORTH [address] [place] [address] * Mihaela Galvan MD - 05/15/2024 6:41 AM EDT Images from the original note were not included. [facility] Medicine - Red Team Inpatient Progress [...] Procedure Component Value - Date/Time Tissue culture [[id number]] (Abnormal) Collected: 05/14/24 1133 Lab Status: Preliminary result Specimen: Toe Updated: 05/14/24 1459 Gram Stain -- Few Neutrophils seen Rare Gram Positive Cocci in pairs seen Results called to and read back by Dr. Mihaela Galvan 05/14/24 14:57:00 Organism Gram Positive Cocci in pairs Blood culture [[id number]] Collected: 05/10/24 0232 Lab Status: Preliminary result Specimen: Blood from Hand, Right Updated: 05/14/24 0701 Blood Culture No growth at 4 days. Skin/Superficial Wound Culture Toe [[id number]] (Abnormal) Collected: 05/10/24 0256 Lab Status: Final [...] PGY-1, Internal Medicine Red Team - Pager [phone] Associated attestation - Treva Diaz MD - [...] of two midnights or is on the [facility] inpatient only procedure list (status C) [...] Center 06/05/2024 4:00 PM Elkin Garcia MD [facility] ORTH 3C [facility] * Savannah Sy [...] Center 06/05/2024 4:00 PM Elkin Garcia MD [facility] OR[facility] [address] [place] [address] * Mihaela Galvan MD - 05/14/2024 6:04 AM EDT [facility] Medicine - Red Team Inpatient [...] PGY-1, Internal Medicine Red Team - Pager [phone] Associated attestation - Treva Diaz MD - [...] of two midnights or is on the [facility] inpatient only procedure list (status C) [...] OR for the above procedure. Please page [phone] if there are any concerns regarding OR [...] Galvan MD - 05/13/2024 6:28 AM EDT [facility] Medicine - Red Team Inpatient Progress [...] Intake/Output Summary (Last 24 hours) at 05/13/2024 0658 Last data filed at 05/13/2024 0400 Gross [...] PGY-1, Internal Medicine Red Team - Pager [phone] Associated attestation - Treva Diaz MD - [...] of two midnights or is on the [facility] inpatient only procedure list (status C) due to: RLE cellulitis with concern forosteomyelitis. Continue on iv antibiotics and follow up with orthopedics regarding any surgical debridement . * Sarwat Marti - 05/12/2024 2:20 PM EDT Public Relations Specialist Encounter Note Patient Name: Jossy Sahnks : [id number] MR#: [id number] Admit Date: 05/10/2024 2:12 AM Hospital Day 2 days Narrative:Visited to introduce and assess acceptance of Public Relations Specialist services. Patient was sleeping and I will visit an other time. Assessment: Intervention and Outcome: Follow-up: Time in Direct Care: Sarwat Marti 05/12/2024 * Mihaela Galvan MD - 05/12/2024 6:36 AM EDT [facility] Medicine - Red Team Inpatient Progress [...] PGY-1, Internal Medicine Red Team - Pager [phone] Associated attestation - Treva Diaz MD - [...] of two midnights or is on the [facility] inpatient only procedure list (status C) due to: RLE cellulitis with concern forosteomyelitis. Continue on iv antibiotics and discuss with orthopedics regarding any urgent need for surgical debridement. * Rodriguez Tian MD - 05/11/2024 10:23 AM EDT MEDICINE PAGER [phone] - 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) DVT Prophylaxis: Heparin DOAC Code Status: Attempt [...] of two midnights or is on the [facility] inpatient only procedure list (status C) [...] presented to a local emergency [facility] yesterday ([id number] birthday) due to ongoing wound issues and [...] Intake/Output Summary (Last 24 hours) at 05/10/2024 0973 Last data filed at 05/10/2024 0552 Gross [...] minimumof two midnights or is on the [facility] inpatient only procedure list (status C) [...] Lasix, HTN on Losartan,who presented to [facility] for rt LE cellulitis, transferred to [facility] for septic shock. [...] 05/10/2024 2:37 AM) Result Value WORKSTATION ID [id number] Impression Bibasilar atelectasis. Thank you for letting us participate in the care of this patient. If you are a health care provider and have any questions regarding this report, please contact the number below. For patients who have questions please contact the health childcare center administrator that requested your imaging first. foot pending - may need leg MRI too CXR above Assessment and Plan Jossy Sahnks is a 69 y.o. year old male [...] Thomas MD - 05/10/2024 2:56 AM EDT [facility] TeleICU Initial Assessment [...] hour(s)) Lactate, whole blood, send to lab ([facility]) Result Value Lactate WB 2.3 (H) Prothrombin [...] infection if clinical appearance is worrisome -Awaiting [facility] admission K+ level [...] indication: Osteomyelitis, central venous access required for alf antibiotic use IR workflow: Procedure request received through Interventional Radiology eDH order queue. There are no answered order specific questions. History of Present Illness: Per chart review, Jossy Shanks is a 69 y.o. male with PMH of CKD, DM,COPD, A.fib, admitted for RLE cellulitis and osteomyelitis s/p 2ng toe amputation requiring alf IV antibiotic administration who presents to Interventional [...] medical record. IR History: None listed at [facility] Anticoagulation/Antiplatelet: None listed [...] Assessment: 69 y.o. 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 MAIN OR Social History and Habits: [...] indication: Osteomyelitis, central venous access required for local intermodal truck driver antibiotic use IR workflow: Procedure request received through Interventional Radiology eDH order queue. There are no answered order specific questions. History of Present Illness: Per chart review, Jossy Shanks is a 69 y.o. 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 IR History: None listed at [facility] Anticoagulation/Antiplatelet: None listed [...] Assessment: 69 y.o. male with OM requiring alf IV ABX presenting to Interventional Radiology for [...] performed by Elkin Garcia MD at [facility] MA[facility] OR Social History and Habits: [...] amputation. Isra Rodriguez IV, DO Orthopaedic Surgery [facility] * Carlotta Davis MD - 05/10/2024 [...] on home oxygen, HFpEF, HTN, admitted to [facility] on 05/10/2024, now on Hospital Day #0, for RLE cellulitis SUBJECTIVE History of Present Illness: Per admitting provider Jossy Shanks is a 69 y.o. year old male with PMH significant for IDDM, Afib rate controlled, CKD (bsl cr 1.5), COPD not on home oxygen, HFpEF, HTN who presented to [facility] for rt LE cellulitis, transferred to [facility] for RLE cellulitis [...] knee. Fevers & chills for last 24hrs. [place] lightheaded, weak, & couldn't get out of [...] prior to OSH departure. On arrival to [facility]: HR 96, o2 [...] limbs -chronic Motor Exam: Upper Limb Bilateral: Protein Specialist Strength 5/5 Wrist Flexion/Extension 5/5 Elbow [...] in the last 7068 hours. Invalid input(s): [id number] Recent Labs 05/10/24219 HA1C 5.9* Lipids: Heme: No results for input(s): LDH, HAPTOGLOBIN, URICACID in the last 168 hours. ABG (Arterial Blood Gas): No results found for: PHART, PO2ART, RHW9JSV, CKX2GVL VBG (Venous Blood Gas): No results for input(s): PHVEN, FYY0HUO, PO2VEN, ZCX2POD, BEVEN, HPH2XRX in the last 72hours. EKG: No results [...] 05/10/2024 2:37 AM) Result Value WORKSTATION ID [id number] Impression Bibasilar atelectasis. Thank you for letting us participate in the care of this patient. If you are a health care provider and have any questions regarding this report, please contact the number below. For patients who have questions please contact the health childcare center administrator that requested your imaging first. Foot wwo Contrast Right (Exam End: 05/10/2024 5:51 AM) Result Value WORKSTATION ID [id number] Impression 1. Soft tissue irregularity of the [...] who have questions please contact the health childcare center administrator that requested your imaging first. Electronically signed by: Trinidad Mota MD, [facility] ([phone]), at 05/10/2024 12:56 PM Medications: Scheduled: [START [...] controlled Afib (Xarelto, dilt, coreg), admitted to [facility] on 05/10/2024, now [...] Internal Medicine PGY2 Medicine Team: Red, Pager #[phone] Associated attestation - Treva Diaz MD - [...] oxygen, HFpEF, HTN who presented to [facility] for rt LE cellulitis, transferred to [facility] for septic shock. [...] knee. Fevers & chills for last 24hrs. [place] lightheaded, weak, & couldn't get out of [...] prior to OSH departure. On arrival to [facility]: HR 96, o2 [...] mobilizes w/out assistance. Darion Morgan is DPOA; [phone] Physical Exam: Vitals: Last value Range last [...] Anita Camacho MD Internal Medicine, PGY2 05/10/2024 [facility] Pager #[phone] documented in this encounter Procedure Notes * Juan José Flowers MD - 05/21/2024 11:49 AM EDT IR PROCEDURE NOTE Procedure: Tunneled central venous catheter placement. Indication for Procedure: Per Allyn MIMS, Jossy Shanks is a 69 y.o. 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 who presents to Interventional [...] Transition of Care: Plan for discharge is: [facility] Facility / Swing OPAT Orders: ID Consult Ordered Agency Referrals & Follow-up Care: Contact information for follow-up [facility] [address] [place] [address] Transportation: family or friend will provide Wheelchair [...] through: Primary Insurance: [employer]AR MANAGED MEDICARE Payor: [facility] MANAGED MEDICARE / Plan: [facility] MANAGED MEDICARE COMPLETE / Product Type: *No Product type* / Secondary Insurance: N/A Prescription Coverage: Yes This plan was formulated with input from patient and team. All are in agreement with plan. Shirley Samuel RN CM Officer Lieutenant- Medicine Office of Care Management Ext: [phone] Pager: [phone] * Plan of Care - Juan José [...] and were able to stop the bleeding. Horse Racing Analyst carolyn a hemoglobin when patient got back [...] Operative Note Patient Name: Jossy Shanks : [id number] MR#: [id number] Case Date: 05/22/2024 Surgeon: Surgeons and Role: [...] Non-Dialysis 05/21/[address] [facility] INTERVENTIONL RAD PRO AMPUTATION METATARSAL+TOE, SINGLE Right 05/14/2024 AMPUTATION, TRANSMETATARSAL TOE, ONE TOE (WRVU 6.64) performed by Elkin Garcia MD at [facility] MAIN OR SOCIAL HX: Social History [...] AM Electronically signed by: Teofilo Ruiz MD, [facility] ([phone]), at 05/20/2024 11:30 AM Thank you for letting us participate in the care of this patient. If you are a health care provider and have any questions regarding this report, please contact the number above. For patients who have questions, please contact the health childcare center administrator that requested your imaging first. Teofilo [...] who have questions please contact the health childcare center administrator that requested your imaging first. Electronically signed by: Trinidad Mota MD, [facility] ([phone]), at 05/10/2024 12:56 PM XR Chest One View Final Result Bibasilar atelectasis. Thank you for letting us participate in the care of this patient. If you are a health care provider and have any questions regarding this report, please contact the number below. For patients who have questions please contact the health childcare center administrator that requested your imaging first. SCOPY: Reports [...] anticoagulation and significant anemia. Tl Steele MD [facility] Gastroenterology * Plan [...] Pain Flowsheets (Taken 05/20/2024802) Pain Management Interventions: bczben-atf-ivdyd dosing utilized breathing exercises care clustered diversional [...] Payor: [employer] MANAGED MEDICARE / Plan: AARP [facility] MANAGED MEDICARE COMPLETE / Product Type: *No Product type* / Secondary Insurance: N/A Last Physical Therapy Recommendation: swing bed rehabilitation facility, shelter facility with to be determined Last Occupational Therapy Recommendation: shelter facility, swing bed rehabilitation facility with to be determined Plan for discharge is: [facility] Facility / Swing Outpatient Agency/Support Group Needs: Homecare agency OPAT Orders: ID Consult Ordered Location: Home Home Health Services: IV Therapy Agency Referrals: Based on discussions with the multi-disciplinary healthcare team, the patient would benefit from SNF level of care at discharge. I have met with the patient to: discuss discharge planning needs. provide the [facility], Office of Care Management letter from the Instrument Lens Grinder Apprentice pertaining to rehab referrals. provide a letter describing our affiliations within the [facility] and educate about their right to choose where referrals are sent. provide the CMS Star Quality Rating handout. review the different levels of rehab including SNF, swing, and acute. provide a list of facilities within their preferred geographic area. request that they provide at least three choices for referral. They have requested referrals to: [facility] ([facility]) [address] [place] [address] [facility] [address] [place] [address] -OFFERED BED, PENDING INSURANCE AUTHORIZATION 05/20 [address] [facility] [address] [place] [address] [facility] [address] [place] [address] [facility]) [address] [place] [address] (Accepts pts only after exhausting all other local SNF options) Does patient have COVID vaccine card: Yes; Copy obtained: No Note routed to a Optometrist/Practice Owner who will communicate referrals to facilities and provide any required information. Transportation: family or friend will provide Barriers to discharge: Discharge planning Plan going forward: Referrals routed for SNF/Swing. Care Management will continue to follow and assist with discharge planning and coordination of care as indicated. Anticipated Date of Discharge: 05/21/2024 Shirley Samuel RN CM Officer Lieutenant- Medicine Office of Care Management Ext: [phone] Pager: [phone] * Plan of Care - Pretty Ramirez [...] shock at his time of transfer to [facility]. Creatinine on admission was 3.94 mg/dL, [...] performed by Elkin Garcia MD at [facility] MAIN OR insulin glargine-ygfn (Semglee) (100 [...] Flowsheets (Taken 05/18/2024 0838) Pain Management Interventions: wfyduw-ssl-clist dosing utilized care clustered diversional activity provided [...] television Taken 05/15/2024 1825 Pain Management Interventions: cxqdxj-dyh-vougz dosing utilized position adjusted pillow support provided [...] smartphone Taken 05/15/2024 1825 Pain Management Interventions: phouty-yqr-nzeil dosing utilized position adjusted pillow support provided [...] performed by Elkin Garcia MD at [facility] OR Active Non-Hospital Problems Diagnosis [...] Perception: WNL / WFL and corrective lenses realtime captioner Communication: WFL Range of motion, strength, coordination: [...] planning. Total Minutes, Occupational Therapy: 90 (evaluation (2212-2382)) 2017 OT Evaluation Code Rationale: Diagnosis & [...] and measurable assessment of functional outcome. Pager: [phone] Penny Rodriguez OT 05/16/2024 Occupational Therapy Rehabilitation [...] have. Alternately, during off-hours you may call [phone] to contact a pharmacist. * Consult Note [...] briefly on vasopressors, and then transferred to [facility] for further management. 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 05/14. Reports a hx of cellulitis in the Left leg back in 2009 for which he states he did a course of 6 week son IV abx from [facility]. Has gotten cellulitis about half a dozen times in total. Review of Systems: Pertinent positives and negatives noted in HPI. 14 point ROS otherwise negative except noted in HPI. Allergies/Adverse drug reactions: No Known Allergies Family History: Family History No data available Social History: Housing: lives in a camper in [facility] Occupation: Former [employer], retired in 2017 [...] Procedure Component Value - Date/Time Blood culture [[id number]] Collected: 05/10/24 0232 Lab Status: Final result Specimen: Blood from Hand, Right Updated: 05/15/24 0701 Blood Culture No growth at 5 days. Tissue culture [[id number]] (Abnormal) Collected: 05/14/24 1133 Lab Status: Preliminary result Specimen: Toe Updated: 05/14/24 1459 Gram Stain -- Few Neutrophils seen Rare Gram Positive Cocci in pairs seen Results called to and read back by Dr. Mihaela Galvan 05/14/24 14:57:00 Organism Gram Positive Cocci in pairs Skin/Superficial Wound Culture Toe [[id number]] (Abnormal) Collected: 05/10/24 0256 Lab Status: Final [...] follow. Please page ID Red team (pager [phone]) with questions or concerns. Emmanuel Corey, DO Internal Medicine PGY-2 Pager: [phone] Epic Chat 05/15/2024 Associated attestation - Rodriguez [...] Home Health Services: IV Therapy Agency Referrals: [place] [address] or Home Care Orders: 1. IV Antibiotics: [...] forward: Barbie routed and pended. [facility] routed. Care Management will continue to follow and assist with discharge planning and coordination of care as indicated. Anticipated Date of Discharge: 05/19/2024 Shirley Samuel RN CM Officer Lieutenant- Medicine Office of Care Management Ext: [phone] Pager: [phone] * Plan of Care - YgChristine lloyd [...] Operative Note Patient Name: Jossy Shanks : [id number] MR#: [id number] Case Date: 05/14/2024 Surgeon: Surgeons and Role: [...] Garcia MD - 05/14/2024 11:16 AM EDT [facility] Operative Note Patient Name: Jossy Shanks : [id number] MR#: [id number] Case Date: 05/14/2024 Surgeon: Surgeons and Role: [...] can weight-bear as tolerated and heel off loaders We will follow his wounds while he is here in the hospital. Surgical Infection Prevention Bundle Used? N/A Attestation: Case Date: 05/14/2024 I was present and I participated during the entire procedure (does not need to include opening and closing). Elkin Garcia MD 05/14/2024 * Consult Note - Hakeem Villa, [facility] - 05/14/2024 7:15 AM EDT [facility] Pharmacokinetics Note Drug: Vancomycin Pharmacokinetic target: AUC24 (range) 400-600 mg/L.hr Jossy Shanks is a 69-year-old male receiving intermittent Vancomycin doses Recent measured serum creatinine values: 05/14/2024 05:01 1.56 mg/dL 05/13/2024 05:29 1.53 mg/dL 05/12/2024 04:45 2.03 mg/dL Assessment: Analysis of the most recent level(s) using [employer] gives the following patient-specific pharmacokinetic parameters: CL: [...] Within Desired Range 05/14/2024 0456 by Pretty Rmairez, JACKIE Outcome: Ongoing (Interventions Implemented as Appropriate) [...] controlled Afib (Xarelto, dilt, coreg), admitted to [facility] on 05/10/2024 with LE cellulitis 2/2 right foot trauma. Reason for intervention: Diet order question - what type of carb control diet does pt need? Nutrition Recommendations: Carb control level 3 diet Monitor po intake Monitor blood glucose levels Monitor weight trends I was able to discuss plan with provider Medicine Pager Red [phone] . Nutrition consult received regarding what type of carb control diet pt needs. Estimated nutrition needs based on ideal body weight of 89kg: Calories: 4480-7028 calories (20-25kcal/kg) Protein: 89-107g (1-1.2g/kg) Nutrition to [...] border dressing. (Melgisorb Ag 6x6 PS # [id number]) (Melgisorb Ag 4x4 PS # [id number]) Sacrum/ischium: open to air, utilize Z-guard if patient begins to have breakdown Supplies left at the bedside: 1 sheet of Melgisorb Ag, wound cleanser Wound Care will complete the consult at this time. If there are further issues please re-consult via eD-H. Discussed plan with: RN: Don Please contact Keeley Russell RN on eDH secure chat or the wound care team on pager [phone] with skin and wound care concerns or [...] surrogate would be surrogate decision maker per [place] surrogate decision making law. (Only good for 180 days) Son CONRADO Any patient receiving care in [place] must abide by [place] law. The hierarchy for surrogate decision making [...] (i) The agent with financial power of regulatory attorney or a conservator appointed in accordance [...] Current DME: none Home Address listed as: [address] [place] [address] Pt is not currently residing here. Current address is as below: [place] [id number] [place] [id number] Social & Family Supports: All names listed below confirmed with patient as current and correct Extended Emergency Contact Information Primary Emergency Contact: Eddie Shanks Mobile Relation: Son/[id number]-cjl Secondary Emergency Contact: Gifty Bucio [facility] Relation: Mother Current Care Provided [...] Pertinent/Service Specific Information: Health/Prescription Coverage: Primary Insurance: [facility] [employer] [facility] OOS Payor: [facility] OOS / Plan: [facility] O[facility] PPO / Product Type: *No Product type* / Secondary Insurance: N/A ; Prescription Coverage: Yes Preferred Pharmacy: [id number] - [place], [place] - [address] [place] [address] AT [address] [facility] [address] [facility] [id number] Primary Care Provider listed: None None Pt does have PCP in [facility] Patient/Caregiver Goals of Treatment: Potential Needs for Transition of Care: none, home health care Agency Referrals: I have met with the patient to: discuss discharge planning needs. provide the [facility], Office of Care Management letter from the Instrument Lens Grinder Apprentice pertaining to rehab referrals. provide a letter describing our affiliations within the [facility] and educate about their right to choose where referrals are sent. provide a list of Home Health Agencies / Durable Medical Equipment vendors which serve their preferred geographic area. provided patient with [facility] Star Quality Rating handout. They have requested referrals to: [facility] [address] [place] [address] Note routed to a Optometrist/Practice Owner who will communicate referrals to facilities and [...] wait list for housing (an apartment) in [place], [place]; ETA for move-in is 4-8weeks. He does not feel that his local family members would be able to house him in the interim andexpresses that he is comfortable in his camper, which has amenities. He is fully independent at baseline but has used [facility] health in the past; a referral [...] Clinical Pharmacist Note - VancFD Jossy Shanks [id number] 1955 Jossy Shanks is a 69 y.o. [...] Alternately, during off-hours (-) you may call [phone] to contact a pharmacist. Rodriguez Sinclair RPH [...] shoulder abduction, elbow flexion/extension, wrist flexion/extension, supervisor inspecting, EPL, AIN, IO Brisk capillary refill distally [...] shoulder abduction, elbow flexion/extension, wrist flexion/extension, supervisor inspecting, EPL, AIN, IO Brisk capillary refill distally [...] changes develop in his course. Please page [phone] following completion of requestedimaging and studies. - Activity: no restrictions at this time - DVT prophylaxis: per primary; recommend lovenox 30 mg BID - Antibiotics: per ID - Imaging / studies needed: MRI wwo contrast, ABIs, ESR, CRP Tyrone Rehman MD Orthopaedic Surgery, [phone] documented in this encounter Plan of Treatment Upcoming Encounters Date Type Department Care Team (Late st Contact Info) Description 06/10/2024 10:30 AM EDT [place] [address] Elkin Garcia MD [facility] [address] [place] [address] Scheduled Referrals Name Type Priority Associated Diagnoses [...] 05/14/2024 11:32 AM EDT Amputation Metatarsal+Toe, Single ([id number]) 05/14/2024 10:37 AM EDT right second toe [...] - 199 mg/dL 05/23/2024 12:32 PM EDT [facility] Comment:Supplemental ranges: <140 mg/dL before meals <180 mg/dL all other times of the day. Blood CAPILLARY BLOOD / Unknown 05/23/2024 12:32 PM EDT 05/23/2024 12:32 PM EDT Saba Spears MD POINT OF CARE TEST ORDERABLES Performing Organization Address City/State/[facility] Co de Phone Number [facility] [place] [address] * (ABNORMAL) Basic Metabolic Panel (05/23/2024 9:46 AM EDT) Glucose 142 65 - 199 mg/dL 05/23/2024 11:27 AM EDT [facility] Comment:Glucose Concentratio n >=200 mg/dL plus symptoms is consistent with Diabetes Mellitus. Blood Urea Nitrogen 83(H) 10 - 20 mg/dL 05/23/2024 11:27 AM EDT [facility] Creatinine 2.64(H) 0.80 - 1.50 mg/dL 05/23/2024 11:27 AM EDT [facility] Sodium 140 135 - 145 mMol/L 05/23/2024 11:27 AM EDT [facility] Potassium 5.2(H) 3.5 - 5.0 mMol/L 05/23/2024 11:27 AM EDT [facility] Chloride 111(H) 98 - 107 mMol/L 05/23/2024 11:27 AM EDT [facility] Carbon Dioxide 20(L) 22 - 31 mMol/L 05/23/2024 11:27 AM EDT [facility] Anion Gap 9 5 - 15 mMol/L 05/23/2024 11:27 AM EDT [facility] Calcium 9.3 8.5 - 10.5 mg/dL 05/23/2024 11:27 AM T [facility] Est Glomerular Filtration Rate - [...] EDT Saba Spears MD CHEMISTRY ORDERABLE S [facility] [place] [address] * (ABNORMAL) CBC (with Diff) (05/23/2024 9:46 AM EDT) White Blood Cell 12.66(H) 4.00 - 9.50 x10(3)/mc L 05/23/2024 10:52 AM EDT [facility] Red Blood Cell 2.56(L) 4.58 [...] 6.10 x10(3)/mc L 05/23/2024 10:52 AM EDT [facility] Lymph % 5.1 % 05/23/2024 10:52 AM EDT [facility] Lymph Absolute 0.64(L) 0.90 - 3.20 x10(3)/mc L 05/23/2024 10:52 AM EDT [facility] Monocyte % 10.7 % 05/23/2024 10:52 AM EDT [facility] Monocyte Absolute 1.35(H) 0.30 - 0.90 x10(3)/mc L 05/23/2024 10:52 AM EDT [facility] Eos % 1.7 % 05/23/2024 10:52 AM EDT [facility] Eos Absolute 0.22 0.00 - 0.40 x10(3)/mc L 05/23/2024 10:52 AM EDT [facility] Basophil % 0.3 % 05/23/2024 10:52 AM EDT [facility] Baso Absolute 0.04 0.00 - 0.10 x10(3)/mc L 05/23/2024 10:52 AM EDT [facility] Immature Gran % 0.6 % 10:52 AM EDT [facility] Immature Gran Absolute 0.07(H) 0.00 - 0.04 x10(3)/mc L 05/23/2024 10:52 AM EDT [facility] Blood VENOUS BLOOD SPECIMEN / Unknown IP Care Team Draw / Unknown 05/23/2024 9:46 AM EDT 05/23/2024 10:01 AM EDT Saba Spears MD HEMATOLOGY ORDERABL ES [facility] [place] [address] * POC, GLUCOSE (05/23/2024 7:44 AM EDT) [facility] Signature Glucometer, POC 127 65 - 199 mg/dL 05/23/2024 7:44 AM EDT [facility] Comment:Supplemental ranges: <140 mg/dL before meals <180 mg/dL all other times of the day. Blood CAPILLARY BLOOD / Unknown 05/23/2024 7:44 AM EDT 05/23/2024 7:45 AM EDT Saba Spears MD POINT OF CARE TEST ORDERABLES Performing Organization Address City/[facility] Co de Phone Number [facility] [place] [address] * Prepare RBC (05/23/2024 3:49 AM EDT) Status Information Transfused [facility] Product Identification RBC [facility] Unit Number [id number] [facility] Product Code [id number] [facility] Unit Blood Type OPOS [facility] Specimen Expiration Date [id number] [facility] Volulme 350 [facility] Issue Date / Time [id number] [facility] Blood 05/22/2024 12: 42 PM EDT Saba Spears MD BLOOD BANK PRODUCT ORDERABLES Performing Organization Address [facility] Co de Phone Number [facility] [place] [place] [address] * POC, GLUCOSE (05/23/2024 3:49 AM EDT) Glucometer, POC 152 65 - 199 mg/dL 05/23/2024 3:49 AM EDT [facility] Comment:Supplemental ranges: <140 mg/dL before meals <180 mg/dL all other times of the day. Blood CAPILLARY BLOOD / Unknown 05/23/2024 3:49 AM EDT 05/23/2024 3:49 AM EDT Saba Spears MD POINT OF CARE TEST ORDERABLES Performing Organization Address City/[facility]/ZIP Co de Phone Number [facility] [place] [address] * POC, GLUCOSE (05/23/2024 1:26 AM EDT) [facility] Glucometer, POC 138 65 - 199 mg/dL 05/23/2024 1:26 AM EDT [facility] Comment:Supplemental ranges: <140 mg/dL before meals <180 mg/dL all other times of the day. Blood CAPILLARY BLOOD / Unknown 05/23/2024 1:26 AM EDT 05/23/2024 1:26 AM EDT Saba Spears MD POINT OF CARE TEST ORDERABLES Performing Organization Address City/[facility]/ZIP Co de Phone Number [facility] [place] [address] * (ABNORMAL) Scan, Peripheral Blood (05/23/2024 1:19 AM EDT) [facility] RBC Morphology Abnormal 05/23/2024 3:44 AM EDT [facility] Platelet Estimate Increased(A) Normal 05/23/2024 3:44 AM EDT [facility] Ovalocytes 1-5 /HPF 05/23/2024 3:44 AM EDT [facility] [place] cells 1-5 /HPF 05/23/2024 3:44 AM EDT [facility] Blood VENOUS BLOOD SPECIMEN / Unknown IP Care Team Draw / Unknown 05/23/2024 1:19 AM EDT 05/23/2024 2:05 AM EDT Mary De La Fuente MD HEMATOLOGY ORDERAB LES [facility] [place] [address] * Magnesium (05/23/2024 1:19 AM EDT) [facility] Magnesium 0.86 0.69 - 1.07 mMol/L 05/23/2024 2:40 AM EDT [facility] Blood VENOUS BLOOD SPECIMEN / Unknown IP Care Team Draw / Unknown 05/23/2024 1:19 AM EDT 05/23/2024 2:05 AM EDT Mary De La Fuente MD CHEMISTRY ORDERABL ES Performing Organization Address [facility]/ZIP Co de Phone Number [facility] [place] [address] * (ABNORMAL) Phosphorus (05/23/2024 1:19 AM EDT) Phosphorus 5.8(H) 2.5 - 4.5 mg/dL 05/23/2024 2:40 AM EDT [facility] Blood VENOUS BLOOD SPECIMEN / Unknown IP Care Team Draw / Unknown 05/23/2024 1:19 AM EDT 05/23/2024 2:05 AM EDT Mary De La Fuente MD CHEMISTRY ORDERABL ES Performing Organization Address [facility] Co de Phone Number [facility] [place] [address] * (ABNORMAL) Basic Metabolic Panel (non-fasting) (05/23/2024 1:19 AM EDT) Glucose 158 65 - 199 mg/dL 05/23/2024 3:34 AM EDT [facility] Comment:Glucose Concentratio n >=200 mg/dL plus symptoms is consistent with Diabetes Mellitus. Blood Urea Nitrogen 85(H) 10 - 20 mg/dL 05/23/2024 3:34 AM EDT [facility] Creatinine 2.70(H) 0.80 - 1.50 mg/dL 05/23/2024 3:34 AM EDT [facility] Sodium 139 135 - 145 mMol/L 05/23/2024 3:34 AM EDT [facility] Potassium 4.9 3.5 - 5.0 mMol/L 05/23/2024 3:34 AM EDT [facility] Chloride 108(H) 98 - 107 mMol/L 05/23/2024 3:34 AM EDT [facility] Carbon Dioxide 20(L) 22 - 31 mMol/L 05/23/2024 3:34 AM EDT [facility] Anion Gap 11 5 - 15 mMol/L 05/23/2024 3:34 AM EDT [facility] Calcium 9.1 8.5 - 10.5 mg/dL 05/23/2024 3:34 AM EDT [facility] Est Glomerular Filtration Rate - Male 25 mL/min/1. 73 m?? 05/23/2024 3:34 AM EDT [facility] Comment: This patient's estimated GFR [...] Foundation Fasting Status 05/23/2024 3:34 AM EDT [facility] Blood VENOUS BLOOD SPECIMEN / Unknown IP Care Team Draw / Unknown 05/23/2024 1:19 AM EDT 05/23/2024 2:05 AM EDT Mary De La Fuente MD CHEMISTRY ORDERABL ES [facility] [place] [address] * (ABNORMAL) CBC (with Diff) (05/23/2024 1:19 AM EDT) White Blood Cell 12.66(H) 4.00 - 9.50 x10(3)/mc L 05/23/2024 3:44 AM EDT [facility] Red Blood Cell 2.61(L) 4.58 [...] 0.04 x10(3)/mc L 05/23/2024 3:44 AM EDT [facility] Comment:This is an appended report. These results have been appended to a previously preliminary verified report. Blood VENOUS BLOOD SPECIMEN / Unknown IP Care Team Draw / Unknown 05/23/2024 1:19 AM EDT 05/23/2024 2:05 AM EDT Mary De La Fuente MD HEMATOLOGY ORDERAB LES Performing Organization Address City/[facility]/ZIP Co de Phone Number [facility] [place] [address] * POC, GLUCOSE (05/22/2024 8:21 PM EDT) Glucometer, POC 152 65 - 199 mg/dL 05/22/2024 8:21 PM EDT [facility] Comment:Supplemental ranges: <140 mg/dL before meals <180 mg/dL all other times of the day. Blood CAPILLARY BLOOD / Unknown 05/22/2024 8:21 PM EDT 05/22/2024 8:21 PM EDT Saba Spears MD POINT OF CARE TEST ORDERABLES Performing Organization Address City/[facility]/ZIP Co de Phone Number [facility] [place] [address] * POC, GLUCOSE (05/22/2024 6:20 PM EDT) Glucometer, POC 130 65 - 199 mg/dL 05/22/2024 6:20 PM EDT [facility] Comment:Supplemental ranges: <140 mg/dL before meals <180 mg/dL all other times of the day. Blood CAPILLARY BLOOD / Unknown 05/22/2024 6:20 PM EDT 05/22/2024 6:21 PM EDT Saba Spears MD POINT OF CARE TEST ORDERABLES [facility] [place] [address] * Transfuse RBC (05/22/2024 2:45 PM EDT) Saba Spears MD NURSING TREATMENT O RDERABLES - BLOOD ADMIN * UPPER GI ENDOSCOPY (05/22/2024 12:48 PM EDT) Pathologist [facility] UPPER GI ENDOSCOPY [facility] Endoscopy ___ Procedure Date: 05/22/2024 12:48 PM ? Patient Name: Jossy Shanks ? N: [id number] ? Date of : 1955 ? Age: 69 ? Order #: [id number] ? Instrument Name: [id number] ? ___ Procedure: ? Upper GI endoscopy [...] HISTORY FOUND) (05/22/2024 11:18 AM EDT) Pathologist [facility] ABOR Recheck Progress Complete 05/22/2024 1:[address] [facility] Blood VENOUS BLOOD SPECIMEN / Unknown IP Care Team Draw / Unknown 05/22/2024 11:18 AM EDT 05/22/2024 11:27 AM EDT Saba Spears MD BLOOD BANK LAB FADY [facility] [place] [address] * Type and screen ([facility]/CGP/TARA) (05/22/2024 11:18 AM EDT) ABORH Type O POSITIVE 05/22/2024 12:[address] [facility] PATIENT HISTORY Found 05/22/2024 12:[address] [facility] Expires at [id number] on: 05-22-2024 05/22/2024 12:[address] [facility] ANTIBODY SCREEN AUTOMATED Negative 05/22/2024 12:[address] [facility] T&S only valid at [facility] 05/22/2024 12:[address] [facility] Blood VENOUS BLOOD SPECIMEN / Unknown IP Care Team Draw / Unknown 05/22/2024 11:18 AM EDT 05/22/2024 11:[address] [facility] - 05/22/2024 12:31 PM EDT This Type and Screen result is only valid at the [facility] Saba Spears MD BLOOD BANK LAB ORDE RABLES Performing Organization Address City/[facility]/ZIP Co de Phone Number [facility] [place] [place] [address] * (ABNORMAL) Hemoglobin and Hematocrit, blood (05/22/2024 11:18 AM EDT) Hemoglobin 6.9(L) 13.7 - 16.5 g/dL 05/22/2024 12:02 PM EDT [facility] Hematocrit 21.4(L) 40.5 - 48.5 % 05/22/2024 12:02 PM EDT [facility] Blood VENOUS BLOOD SPECIMEN / Unknown IP Care Team Draw / Unknown 05/22/2024 11:18 AM EDT 05/22/2024 11:36 AM EDT Saba Spears MD HEMATOLOGY ORDERABL ES [facility] [place] [address] * POC, GLUCOSE (05/22/2024 11:14 AM EDT) Glucometer, POC 126 65 - 199 mg/dL 05/22/2024 11:17 AM EDT [facility] Comment:Supplemental ranges: <140 mg/dL before meals <180 mg/dL all other times of the day. Blood CAPILLARY BLOOD / Unknown 05/22/2024 11:14 AM EDT 05/22/2024 11:18 AM EDT Saba Spears MD POINT OF CARE TEST ORDERABLES Performing Organization Address City/[facility]/ZIP Co de Phone Number [facility] [place] [address] * POC, GLUCOSE (05/22/2024 8:07 AM EDT) Glucometer, POC 132 65 - 199 mg/dL 05/22/2024 8:08 AM EDT [facility] Comment:Supplemental ranges: <140 mg/dL before meals <180 mg/dL all other times of the day. Blood CAPILLARY BLOOD / Unknown 05/22/2024 8:07 AM EDT 05/22/2024 8:08 AM EDT Saba Spears MD POINT OF CARE TEST ORDERABLES Performing Organization Address [facility] Co de Phone Number [facility] [place] [address] * (ABNORMAL) Hepatic Function Panel (05/22/2024 5:18 AM EDT) Albumin 2.6(L) 3.2 - 5.2 g/dL 05/22/2024 9:50 AM EDT [facility] Aspartate Aminotransferase 18 <=39 unit/L 05/22/2024 9:50 AM EDT [facility] Alanine Aminotransferase 42 0 - 55 unit/L 05/22/2024 9:50 AM EDT [facility] Alkaline Phosphatase 84 40 - 130 unit/L 05/22/2024 9:50 AM EDT [facility] Bilirubin, Total <0.2 <=1.3 mg/dL 05/22/2024 9:50 AM EDT [facility] Bilirubin, Direct <0.2 0.0 - 0.3 mg/dL 05/22/2024 9:50 AM EDT [facility] Protein, Total 6.0(L) 6.1 - 8.0 g/dL 05/22/2024 9:50 AM EDT [facility] Blood VENOUS BLOOD SPECIMEN / Unknown IP Care Team Draw / Unknown 05/22/2024 5:18 AM EDT 05/22/2024 5:45 AM EDT Saba Spears MD CHEMISTRY ORDERABLE S Performing Organization Address City/[facility]/ZIP Co de Phone Number [facility] [place] [address] * Magnesium (05/22/2024 5:18 AM EDT) Magnesium 0.93 0.69 - 1.07 mMol/L 05/22/2024 6:16 AM EDT [facility] Blood VENOUS BLOOD SPECIMEN / Unknown IP Care Team Draw / Unknown 05/22/2024 5:18 AM EDT 05/22/2024 5:45 AM EDT Mary De La Fuente MD CHEMISTRY ORDERABL ES Performing Organization Address [facility]/ZIP Co de Phone Number [facility] [place] [address] * (ABNORMAL) Phosphorus (05/22/2024 5:18 AM EDT) Phosphorus 5.8(H) 2.5 - 4.5 mg/dL 05/22/2024 6:16 AM EDT [facility] Blood VENOUS BLOOD SPECIMEN / Unknown IP Care Team Draw / Unknown 05/22/2024 5:18 AM EDT 05/22/2024 5:45 AM EDT Mary De La Fuente MD CHEMISTRY ORDERABL ES Performing Organization Address City/[facility]/ZIP Co de Phone Number [facility] [place] [address] * (ABNORMAL) Basic Metabolic Panel (05/22/2024 5:18 [...] De La Fuente MD CHEMISTRY ORDERABL ES [facility] [place] [address] * (ABNORMAL) CBC (with Diff) (05/22/2024 5:18 AM EDT) White Blood Cell 14.70(H) 4.00 - 9.50 x10(3)/mc L 05/22/2024 5:52 AM EDT [facility] Red Blood Cell 2.37(L) 4.58 - 5.54 x10(6)/mc L 05/22/2024 5:52 AM EDT [facility] Hemoglobin 7.2(L) 13.7 - 16.5 g/dL 05/22/2024 5:52 AM EDT [facility] Hematocrit 22.1(L) 40.5 - 48.5 % 05/22/2024 5:52 AM EDT [facility] Mean Cell Volume 93.2(H) 82.9 - 93.1 fL 05/22/2024 5:52 AM EDT [facility] Mean Cell Hemoglobin 30.4 27.5 - 32.1 pg 05/22/2024 5:52 AM EDT [facility] Mean Cell Hemoglobin Concentration 32.6 32.0 - 35.7 g/dL 05/22/2024 5:52 AM EDT [facility] Platelet 366(H) 145 - 357 x10(3)/mc L 05/22/2024 5:52 AM EDT [facility] Mean Platelet Volume 10.9 7.6 - 12.9 fL 05/22/2024 5:52 AM EDT [facility] RDW Standard Deviation 54.6(H) 36.0 - 45.0 fL 05/22/2024 5:52 AM EDT [facility] RDW coefficient of variation 16.3(H) 11.4 - 13.8 % 05/22/2024 5:52 [address] [facility] NRBC% auto 0.0 % 05/[facility]2024 5:[facility] NR[facility] Absolute 0.00 0.00 - 0.00 x10(3)/mc L 05/22/2024 5:52 [address] [facility] Neutrophil % 83.2 % 05/22/2024 5:[facility] Neutrophil Absolute 12.22(H) 1.70 - [...] MD HEMATOLOGY ORDERAB LES Performing Organization Address City/[facility]/ZIP Co de Phone Number [facility] [place] [address] * POC, GLUCOSE (05/22/2024 3:50 AM EDT) Glucometer, POC 140 65 - 199 mg/dL 05/22/2024 3:50 AM EDT [facility] Comment:Supplemental ranges: <140 mg/dL before meals <180 mg/dL all other times of the day. Blood CAPILLARY BLOOD / Unknown 05/22/2024 3:50 AM EDT 05/22/2024 3:50 AM EDT Saba Spears MD POINT OF CARE TEST ORDERABLES Performing Organization Address [facility]/ZIP Co de Phone Number [facility] [place] [address] * Scan Doc: Lab (05/22/2024 12:00 AM EDT) Narrative 05/22/2024 12:00 AM EDT Ordered by an unspecified provider. Scanning Provider MEDIA MGR SCAN EXT O RDR/RSLT * POC, GLUCOSE (05/21/2024 11:28 PM EDT) Glucometer, POC 174 65 - 199 mg/dL 05/21/2024 11:28 PM EDT [facility] Comment:Supplemental ranges: <140 mg/dL before meals <180 mg/dL all other times of the day. Blood CAPILLARY BLOOD / Unknown 05/21/2024 11:28 PM EDT 05/21/2024 11:28 PM EDT Saba Spears MD POINT OF CARE TEST ORDERABLES Performing Organization Address City/[facility]/ZIP Co de Phone Number [facility] [place] [address] * POC, GLUCOSE (05/21/2024 7:49 PM EDT) Glucometer, POC 161 65 - 199 mg/dL 05/21/2024 7:49 PM EDT [facility] Comment:Supplemental ranges: <140 mg/dL before meals <180 mg/dL all other times of the day. Blood CAPILLARY BLOOD / Unknown 05/21/2024 7:49 PM EDT 05/21/2024 7:49 PM EDT Saba Spears MD POINT OF CARE TEST ORDERABLES Performing Organization Address [facility] Co de Phone Number [facility] [place] [address] * POC, GLUCOSE (05/21/2024 5:18 PM EDT) Glucometer, POC 152 65 - 199 mg/dL 05/21/2024 5:18 PM EDT [facility] Comment:Supplemental ranges: <140 mg/dL before meals <180 mg/dL all other times of the day. Blood CAPILLARY BLOOD / Unknown 05/21/2024 5:18 PM EDT 05/21/2024 5:18 PM EDT Saba Spears MD POINT OF CARE TEST ORDERABLES Performing Organization Address City/[facility]/ZIP Co de Phone Number [facility] [place] [address] * (ABNORMAL) Hemogram (05/21/2024 3:00 PM EDT) White Blood Cell 14.25(H) 4.00 - 9.50 x10(3)/mc L 05/21/2024 3:41 PM EDT [facility] Red Blood Cell 2.61(L) 4.58 - 5.54 x10(6)/mc L 05/21/2024 3:41 PM EDT [facility] Hemoglobin 7.8(L) 13.7 - 16.5 g/dL 05/21/2024 3:41 PM EDT [facility] Hematocrit 24.5(L) 40.5 - 48.5 % 05/21/2024 3:41 PM EDT [facility] Mean Cell Volume 93.9(H) 82.9 - 93.1 fL 05/21/2024 3:41 PM EDT [facility] Mean Cell Hemoglobin 29.9 27.5 - 32.1 pg 05/21/2024 3:41 PM EDT [facility] Mean Cell Hemoglobin Concentration 31.8(L) 32.0 - 35.7 g/dL 05/21/2024 3:41 PM EDT [facility] Platelet 456(H) 145 - 357 x10(3)/mc L 05/21/2024 3:41 PM EDT [facility] Mean Platelet Volume 11.1 7.6 - 12.9 fL 05/21/2024 3:41 PM EDT [facility] RDW Standard Deviation 55.2(H) 36.0 - 45.0 fL 05/21/2024 3:41 PM EDT [facility] RDW coefficient of variation 16.1(H) 11.4 - 13.8 % 05/21/2024 3:41 PM EDT [facility] NRBC% auto 0.0 % 05/21/2024 3:41 PM EDT [facility] NRBC Absolute 0.00 0.00 - 0.00 x10(3)/mc L 05/21/2024 3:41 PM EDT [facility] Blood VENOUS BLOOD SPECIMEN / Unknown IP Care Team Draw / Unknown 05/21/2024 3:00 PM EDT 05/21/2024 3:36 PM EDT Saba Spears MD HEMATOLOGY ORDERABL ES [facility] [place] [address] * POC, GLUCOSE (05/21/2024 12:39 PM EDT) Glucometer, POC 144 65 - 199 mg/dL 05/21/2024 12:39 PM EDT [facility] Comment:Supplemental ranges: <140 mg/dL before meals <180 mg/dL all other times of the day. Blood CAPILLARY BLOOD / Unknown 05/21/2024 12:39 PM EDT 05/21/2024 12:39 PM EDT Saba Spears MD POINT OF CARE TEST ORDERABLES [facility] [place] [address] * IR Tunneled Central Venous Access Non-Dialysis [...] and osteomyelitis s/p 2ng toe amputation requiring alf IV antibiotic administration who presents to Interventional [...] guidance and a 4Fr sheath placed. ??[address] injection compatible single lumen catheter was [...] POC, GLUCOSE (05/21/2024 9:12 AM EDT) Pathologist Sekal AS Glucometer, POC 144 65 - 199 mg/dL 05/21/2024 9:12 AM EDT [facility] Comment:Supplemental ranges: <140 mg/dL before meals <180 mg/dL all other times of the day. Blood CAPILLARY BLOOD / Unknown 05/21/2024 9:12 AM EDT 05/21/2024 9:12 AM EDT Saba Spears MD POINT OF CARE TEST ORDERABLES [facility] [place] [address] * POC, GLUCOSE (05/21/2024 8:32 AM EDT) Pathologist Sekal AS Glucometer, POC 135 65 - 199 mg/dL 05/21/2024 8:32 AM EDT [facility] Comment:Supplemental ranges: <140 mg/dL before meals <180 mg/dL all other times of the day. Blood CAPILLARY BLOOD / Unknown 05/21/2024 8:32 AM EDT 05/21/2024 8:32 AM EDT Saba Spears MD POINT OF CARE TEST ORDERABLES [facility] [place] [address] * (ABNORMAL) Hemogram (05/21/2024 8:27 AM EDT) White Blood Cell 15.77(H) 4.00 - 9.50 x10(3)/mc L 05/21/2024 8:54 AM EDT [facility] Red Blood Cell 2.47(L) 4.58 - 5.54 x10(6)/mc L 05/21/2024 8:54 AM EDT [facility] Hemoglobin 7.5(L) 13.7 - 16.5 g/dL 05/21/2024 8:54 AM T [facility] Hematocrit 23.0(L) 40.5 - 48.5 % 05/21/2024 8:54 AM EDT [facility] Mean Cell Volume 93.1 82.9 - 93.1 fL 05/21/2024 8:54 AM EDT [facility] Mean Cell Hemoglobin 30.4 27.5 - 32.1 pg 05/21/2024 8:54 AM EDT [facility] Mean Cell Hemoglobin Concentration 32.6 32.0 - 35.7 g/dL 05/21/2024 8:54 AM EDT [facility] Platelet 398(H) 145 - 357 x10(3)/mc L 05/21/2024 8:54 AM EDT [facility] Mean Platelet Volume 10.8 7.6 - 12.9 fL 05/21/2024 8:54 AM EDT [facility] RDW Standard Deviation 54.6(H) 36.0 - 45.0 fL 05/21/2024 8:54 AM EDT [facility] RDW coefficient of variation 16.1(H) 11.4 - 13.8 % 05/21/2024 8:54 AM EDT [facility] NRBC% auto 0.0 % 05/21/2024 8:54 AM EDT [facility] NRBC Absolute 0.00 0.00 - 0.00 x10(3)/mc L 05/21/2024 8:54 AM EDT [facility] Blood VENOUS BLOOD SPECIMEN / Unknown IP Care Team Draw / Unknown 05/21/2024 8:27 AM EDT 05/21/2024 8:42 AM EDT Saba Spears MD HEMATOLOGY ORDERABL ES Performing Organization Address City/[facility]/ZIP Co de Phone Number [facility] [place] [address] * (ABNORMAL) CRP, acute inflammation (05/21/2024 4:58 AM EDT) C-Reactive Protein 14.1(H) <=4.9 mg/L 05/21/2024 10:05 AM EDT [facility] Blood VENOUS BLOOD SPECIMEN / Unknown IP Care Team Draw / Unknown 05/21/2024 4:58 AM EDT 05/21/2024 5:17 AM EDT Saba Spears MD CHEMISTRY ORDERABLE S [facility] [place] [address] * Magnesium (05/21/2024 4:58 AM EDT) Magnesium 0.99 0.69 - 1.07 mMol/L 05/21/2024 5:51 AM EDT [facility] Blood VENOUS BLOOD SPECIMEN / Unknown IP Care Team Draw / Unknown 05/21/2024 4:58 AM EDT 05/21/2024 5:17 AM EDT Mary De La Fuente MD CHEMISTRY ORDERABL ES Performing Organization Address [facility] Co de Phone Number [facility] [place] [address] * (ABNORMAL) Phosphorus (05/21/2024 4:58 AM EDT) Phosphorus 6.2(H) 2.5 - 4.5 mg/dL 05/21/2024 5:51 AM EDT [facility] Blood VENOUS BLOOD SPECIMEN / Unknown IP Care Team Draw / Unknown 05/21/2024 4:58 AM EDT 05/21/2024 5:17 AM EDT Mary De La Fuente MD CHEMISTRY ORDERABL ES Performing Organization Address [facility] Co de Phone Number [facility] [place] [address] * (ABNORMAL) Basic Metabolic Panel (05/21/2024 4:58 AM EDT) Glucose 151 65 - 199 mg/dL 05/21/2024 5:51 AM EDT [facility] Comment:Glucose Concentratio n >=200 mg/dL plus symptoms is consistent with Diabetes Mellitus. Blood Urea Nitrogen 110(H) 10 - 20 mg/dL 05/21/2024 5:51 AM EDT [facility] Creatinine 3.04(H) 0.80 - 1.50 mg/dL 05/21/2024 5:51 AM EDT [facility] Sodium 138 135 - 145 mMol/L 05/21/2024 5:51 AM EDT [facility] Potassium 5.1(H) 3.5 - 5.0 mMol/L 05/21/2024 5:51 AM EDT [facility] Chloride 111(H) 98 - 107 mMol/L 05/21/2024 5:51 AM EDT [facility] Carbon Dioxide 18(L) 22 - 31 mMol/L 05/21/2024 5:51 AM EDT [facility] Anion Gap 9 5 - 15 mMol/L 05/21/2024 5:51 AM EDT [facility] Calcium 9.4 8.5 - 10.5 mg/dL 05/21/2024 5:51 AM EDT [facility] Est Glomerular Filtration Rate - Male 21 mL/min/1. 73 m?? 05/21/2024 5:51 AM EDT [facility] Comment: This patient's estimated GFR [...] Fasting Status No 05/21/2024 5:51 AM EDT [facility] Blood VENOUS BLOOD SPECIMEN / Unknown IP Care Team Draw / Unknown 05/21/2024 4:58 AM EDT 05/21/2024 5:17 AM EDT Mary De La Fuente MD CHEMISTRY ORDERABL ES [facility] [place] [address] * (ABNORMAL) CBC (with Diff) (05/21/2024 4:58 AM EDT) White Blood Cell 14.49(H) 4.00 - 9.50 x10(3)/mc L 05/21/2024 5:28 AM EDT [facility] Red Blood Cell 2.54(L) 4.58 [...] 3.20 x10(3)/mc L 05/21/2024 5:28 AM EDT [facility] Monocyte % 9.4 % 05/21/2024 5:28 AM EDT [facility] Monocyte Absolute 1.36(H) 0.30 - 0.90 x10(3)/mc L 05/21/2024 5:28 AM EDT [facility] Eos % 2.1 % 05/21/2024 5:28 AM EDT [facility] Eos Absolute 0.30 0.00 - 0.40 x10(3)/mc L 05/21/2024 5:28 AM EDT [facility] Basophil % 0.2 % 05/21/2024 5:28 AM EDT [facility] Baso Absolute 0.03 0.00 - 0.10 x10(3)/mc L 05/21/2024 5:28 AM EDT [facility] Immature Gran % 0.6 % 5:28 AM EDT [facility] Immature Gran Absolute 0.08(H) 0.00 - 0.04 x10(3)/mc L 05/21/2024 5:28 AM EDT [facility] Blood VENOUS BLOOD SPECIMEN / Unknown IP Care Team Draw / Unknown 05/21/2024 4:58 AM EDT 05/21/2024 5:17 AM EDT Mary De La Fuente MD HEMATOLOGY ORDERAB LES [facility] [place] [address] * POC, GLUCOSE (05/21/2024 3:45 AM EDT) Glucometer, POC 155 65 - 199 mg/dL 05/21/2024 3:45 AM EDT [facility] Comment:Supplemental ranges: <140 mg/dL before meals <180 mg/dL all other times of the day. Blood CAPILLARY BLOOD / Unknown 05/21/2024 3:45 AM EDT 05/21/2024 3:46 AM EDT Saba Spears MD POINT OF CARE TEST ORDERABLES [facility] [place] [address] * POC, GLUCOSE (05/20/2024 11:44 PM EDT) Glucometer, POC 132 65 - 199 mg/dL 05/20/2024 11:44 PM EDT [facility] Comment:Supplemental ranges: <140 mg/dL before meals <180 mg/dL all other times of the day. Blood CAPILLARY BLOOD / Unknown 05/20/2024 11:44 PM EDT 05/20/2024 11:44 PM EDT Saba Spears MD POINT OF CARE TEST ORDERABLES Performing Organization Address [facility]/ZIP Co de Phone Number [facility] [place] [address] * POC, GLUCOSE (05/20/2024 7:24 PM EDT) Glucometer, POC 166 65 - 199 mg/dL 05/20/2024 7:24 PM EDT [facility] Comment:Supplemental ranges: <140 mg/dL before meals <180 mg/dL all other times of the day. Blood CAPILLARY BLOOD / Unknown 05/20/2024 7:24 PM EDT 05/20/2024 7:25 PM EDT Saba Spears MD POINT OF CARE TEST ORDERABLES [facility] [place] [address] * POC, GLUCOSE (05/20/2024 4:24 PM EDT) Glucometer, POC 170 65 - 199 mg/dL 05/20/2024 4:24 PM EDT [facility] Comment:Supplemental ranges: <140 mg/dL before meals <180 mg/dL all other times of the day. Blood CAPILLARY BLOOD / Unknown 05/20/2024 4:24 PM EDT 05/20/2024 4:24 PM EDT Saba Spears MD POINT OF CARE TEST ORDERABLES Performing Organization Address City/State/[facility] Co de Phone Number [facility] [place] [address] * (ABNORMAL) Hemogram (05/20/2024 12:35 PM EDT) White Blood Cell 14.66(H) 4.00 - 9.50 x10(3)/mc L 05/20/2024 12:50 PM EDT [facility] Red Blood Cell 2.81(L) 4.58 - 5.54 x10(6)/mc L 05/20/2024 12:50 PM EDT [facility] Hemoglobin 8.4(L) 13.7 - 16.5 g/dL 05/20/2024 12:50 PM EDT [facility] Hematocrit 26.2(L) 40.5 - 48.5 % 05/20/2024 12:50 PM EDT [facility] Mean Cell Volume 93.2(H) 82.9 - 93.1 fL 05/20/2024 12:50 PM EDT [facility] Mean Cell Hemoglobin 29.9 27.5 - 32.1 pg 05/20/2024 12:50 PM EDT [facility] Mean Cell Hemoglobin Concentration 32.1 32.0 - 35.7 g/dL 05/20/2024 12:50 PM EDT [facility] Platelet 416(H) 145 - 357 x10(3)/mc L 05/20/2024 12:50 PM EDT [facility] Mean Platelet Volume 10.4 7.6 - 12.9 fL 05/20/2024 12:50 PM EDT [facility] RDW Standard Deviation 52.9(H) 36.0 - 45.0 fL 05/20/2024 12:50 PM EDT [facility] RDW coefficient of variation 15.6(H) 11.4 - 13.8 % 05/20/2024 12:50 PM EDT [facility] NRBC% auto 0.0 % 05/20/2024 12:50 PM EDT [facility] NRBC Absolute 0.00 0.00 - 0.00 x10(3)/mc L 05/20/2024 12:50 PM EDT [facility] Blood VENOUS BLOOD SPECIMEN / Unknown IP Care Team Draw / Unknown 05/20/2024 12:35 PM EDT 05/20/2024 12:43 PM EDT Saba Spears MD HEMATOLOGY ORDERABL ES Performing Organization Address City/[facility]/ZIP Co de Phone Number [facility] [place] [address] * POC, GLUCOSE (05/20/2024 11:52 AM EDT) Glucometer, POC 176 65 - 199 mg/dL 05/20/2024 11:52 AM EDT [facility] Comment:Supplemental ranges: <140 mg/dL before meals <180 mg/dL all other times of the day. Blood CAPILLARY BLOOD / Unknown 05/20/2024 11:52 AM EDT 05/20/2024 11:52 AM EDT Saba Spears MD POINT OF CARE TEST ORDERABLES Performing Organization Address City/[facility]/ZIP Co de Phone Number [facility] [place] [address] * US Retroperitoneal Complete (05/20/2024 10:36 AM EDT) Pathologist Sekal AS WORKSTATION ID [id number] RAD Anatomical Region Laterality Modality Abdomen Ultrasound [...] AM Electronically signed by: Teofilo Ruiz MD, [facility] ([phone]), at 05/20/2024 11:30 AM Thank you for letting us participate in the care of this patient. If you are a health care provider and have any questions regarding this report, please contact the number above. For patients who have questions, please contact the health childcare center administrator that requested your imaging first. ?Teofilo Ruiz, Staff Physician Electronically Signed Final Report ?? 05/20/2024 11:36 am Narrative 05/20/2024 11:37 AM EDT Renal ? (Signed Final 05/20/2024 11:36 am) PATIENT INFO: ID #: ? [id number] ?: ??[birth year] (69 yrs)(M) Name: ? JOSSY SHANKS ? Visit Date: 05/20/2024 10:34 am PERFORMED BY: Attending: ?Joseph SOTOMAYOR, Teofilo Flores Resident: ? Kuldeep SOTOMAYOR, Trinidad Wright Performed By: ? Lulu Shin RDMS Referred By: ?SABA SPEARS Location: ? [place] SERVICE(S) PROVIDED: URETRO - Retroperitoneal Complete - [id number] ? [id number] INDICATIONS: CKD, increase BUN TECHNIQUE/SCAN QUALITY: Scan [...] 05/20/2024 11:36 am) PATIENT INFO: ID #: [id number] : [birth year] (69 yrs)(M) Name: JOSSY SHANKS Visit Date: 05/20/2024 10:34 am PERFORMED BY: Attending: Joseph SOTOMAYOR, Teofilo Flores Resident: Trinidad Light MD Performed By: Lulu Shin RDMS Referred By: SABA SPEARS Location: [place] SERVICE(S) PROVIDED: URETRO - Retroperitoneal Complete - [id number] INDICATIONS: CKD, increase BUN TECHNIQUE/SCAN QUALITY: Scan [...] AM Electronically signed by: Teofilo Ruiz MD, [facility] ([phone]), at 05/20/2024 11:30 AM Thank you for letting us participate in the care of this patient. If you are a health care provider and have any questions regarding this report, please contact the number above. For patients who have questions, please contact the health childcare center administrator that requested your imaging first. Teofilo Ruiz, Staff Physician Electronically Signed Final Report 05/20/2024 11:36 am Saba Spears MD IMG US GEN ORDERABL ES * POC, GLUCOSE (05/20/2024 8:03 AM EDT) [facility] Glucometer, POC 180 65 - 199 mg/dL 05/20/2024 8:03 AM EDT [facility] Comment:Supplemental ranges: <140 mg/dL before meals <180 mg/dL all other times of the day. Blood CAPILLARY BLOOD / Unknown 05/20/2024 8:03 AM EDT 05/20/2024 8:03 AM EDT Saba Spears MD POINT OF CARE TEST ORDERABLES Performing Organization Address [facility]/ZIP Co de Phone Number [facility] [place] [address] * Magnesium (05/20/2024 4:27 AM EDT) Magnesium 0.99 0.69 - 1.07 mMol/L 05/20/2024 5:27 AM EDT [facility] Blood VENOUS BLOOD SPECIMEN / Unknown IP Care Team Draw / Unknown 05/20/2024 4:27 AM EDT 05/20/2024 4:52 AM EDT Mary De La Fuente MD CHEMISTRY ORDERABL ES Performing Organization Address [facility] Co de Phone Number [facility] [place] [address] * (ABNORMAL) Phosphorus (05/20/2024 4:27 AM EDT) Phosphorus 5.1(H) 2.5 - 4.5 mg/dL 05/20/2024 5:27 AM EDT [facility] Blood VENOUS BLOOD SPECIMEN / Unknown IP Care Team Draw / Unknown 05/20/2024 4:27 AM EDT 05/20/2024 4:52 AM EDT Mary De La Fuente MD CHEMISTRY ORDERABL ES Performing Organization Address [facility] Co de Phone Number [facility] [place] [address] * (ABNORMAL) Basic Metabolic Panel (non-fasting) (05/20/2024 4:27 AM EDT) Glucose 173 65 - 199 mg/dL 05/20/2024 6:27 AM EDT [facility] Comment:Glucose Concentratio n >=200 mg/dL [...] De La Fuente MD CHEMISTRY ORDERABL ES [facility] [place] [address] * (ABNORMAL) CBC (with Diff) (05/20/2024 4:27 AM EDT) White Blood Cell 15.20(H) 4.00 - 9.50 x10(3)/mc L 05/20/2024 5:32 AM EDT [facility] Red Blood Cell 2.69(L) 4.58 - 5.54 x10(6)/mc L 05/20/2024 5:32 AM EDT [facility] Hemoglobin 7.9(L) 13.7 - 16.5 g/dL 05/20/2024 5:32 AM [facility] Hematocrit 25.5(L) 40.5 - 48.5 % 05/20/2024 5:32 AM EDT [facility] Mean Cell Volume 94.8(H) 82.9 - 93.1 fL 05/20/2024 5:32 AM T [facility] Mean Cell Hemoglobin 29.4 27.5 - 32.1 pg 05/20/2024 5:32 AM [facility] Mean Cell Hemoglobin Concentration 31.0(L) 32.0 - 35.7 g/dL 05/20/2024 5:32 AM EDT [facility] Platelet 403(H) 145 - 357 x10(3)/mc L 05/20/2024 5:32 AM EDT [facility] Mean Platelet Volume 10.7 7.6 - 12.9 fL 05/20/2024 5:[facility] Standard Deviation 54.7(H) [...] MD HEMATOLOGY ORDERAB LES Performing Organization Address City/[facility] Co de Phone Number [facility] [place] [address] * POC, GLUCOSE (05/20/2024 3:11 AM EDT) Glucometer, POC 163 65 - 199 mg/dL 05/20/2024 3:12 AM EDT [facility] Comment:Supplemental ranges: <140 mg/dL before meals <180 mg/dL all other times of the day. Blood CAPILLARY BLOOD / Unknown 05/20/2024 3:11 AM EDT 05/20/2024 3:12 AM EDT Saba Spears MD POINT OF CARE TEST ORDERABLES Performing Organization Address [facility] Co de Phone Number [facility] [place] [address] * POC, GLUCOSE (05/19/2024 11:07 PM EDT) Glucometer, POC 136 65 - 199 mg/dL 05/19/2024 11:07 PM EDT [facility] Comment:Supplemental ranges: <140 mg/dL before meals <180 mg/dL all other times of the day. Blood CAPILLARY BLOOD / Unknown 05/19/2024 11:07 PM EDT 05/19/2024 11:07 PM EDT Saba Spears MD POINT OF CARE TEST ORDERABLES Performing Organization Address City/[facility]/ZIP Co de Phone Number [facility] [place] [address] * POC, GLUCOSE (05/19/2024 8:20 PM EDT) Glucometer, POC 150 65 - 199 mg/dL 05/19/2024 8:20 PM EDT [facility] Comment:Supplemental ranges: <140 mg/dL before meals <180 mg/dL all other times of the day. Blood CAPILLARY BLOOD / Unknown 05/19/2024 8:20 PM EDT 05/19/2024 8:21 PM EDT Saba Spears MD POINT OF CARE TEST ORDERABLES Performing Organization Address City/[facility]/ZIP Co de Phone Number [facility] [place] [address] * (ABNORMAL) Iron and TIBC (05/19/2024 5:09 PM EDT) Iron 58 45 - 160 mcg/dL 05/19/2024 6:56 PM EDT [facility] Unsaturated Iron Binding Capacity 143 110 - 370 mcg/dL 05/19/2024 6:56 PM EDT [facility] TIBC 201(L) 250 - 450 mcg/dL 05/19/2024 6:56 PM EDT [facility] Iron Saturation 29 20 - 50 % 6:56 PM EDT [facility] Blood VENOUS BLOOD SPECIMEN / Unknown IP Care Team Draw / Unknown 05/19/2024 5:09 PM EDT 05/19/2024 5:43 PM EDT Saba Spears MD CHEMISTRY ORDERABLE S Performing Organization Address City/[facility]/ZIP Co de Phone Number [facility] [place] [address] * PTH (05/19/2024 5:09 PM EDT) Parathyroid Hormone 27 15 - 65 pg/mL 05/19/2024 6:15 PM EDT [facility] Blood VENOUS BLOOD SPECIMEN / Unknown IP Care Team Draw / Unknown 05/19/2024 5:09 PM EDT 05/19/2024 5:43 PM EDT Saba Spears MD CHEMISTRY ORDERABLE S [facility] [place] [address] * Ferritin (05/19/2024 5:08 PM EDT) Ferritin 191 31 - 409 ng/ml 05/19/2024 6:24 PM EDT [facility] Blood VENOUS BLOOD SPECIMEN / Unknown IP Care Team Draw / Unknown 05/19/2024 5:08 PM EDT 05/19/2024 5:43 PM EDT Saba Spears MD CHEMISTRY ORDERABLE S [facility] [place] [address] * POC, GLUCOSE (05/19/2024 3:59 PM EDT) Glucometer, POC 185 65 - 199 mg/dL 05/19/2024 3:59 PM EDT [facility] Comment:Supplemental ranges: <140 mg/dL before meals <180 mg/dL all other times of the day. Blood CAPILLARY BLOOD / Unknown 05/19/2024 3:59 PM EDT 05/19/2024 3:59 PM EDT Saba Spears MD POINT OF CARE TEST ORDERABLES [facility] [place] [address] * POC, GLUCOSE (05/19/2024 12:32 PM EDT) Glucometer, POC 143 65 - 199 mg/dL 05/19/2024 12:32 PM EDT [facility] Comment:Supplemental ranges: <140 mg/dL before meals <180 mg/dL all other times of the day. Blood CAPILLARY BLOOD / Unknown 05/19/2024 12:32 PM EDT 05/19/2024 12:32 PM EDT Saba Spears MD POINT OF CARE TEST ORDERABLES Performing Organization Address [facility] Co de Phone Number [facility] [place] [address] * POC, GLUCOSE (05/19/2024 8:12 AM EDT) Glucometer, POC 181 65 - 199 mg/dL 05/19/2024 8:13 AM EDT [facility] Comment:Supplemental ranges: <140 mg/dL before meals <180 mg/dL all other times of the day. Blood CAPILLARY BLOOD / Unknown 05/19/2024 8:12 AM EDT 05/19/2024 8:13 AM EDT Saba Spears MD POINT OF CARE TEST ORDERABLES Performing Organization Address [facility] Co de Phone Number [facility] [place] [address] * (ABNORMAL) Magnesium (05/19/2024 5:11 AM EDT) Magnesium 1.08(H) 0.69 - 1.07 mMol/L 05/19/2024 5:58 AM EDT [facility] Blood VENOUS BLOOD SPECIMEN / Unknown IP Care Team Draw / Unknown 05/19/2024 5:11 AM EDT 05/19/2024 5:30 AM EDT Mary De La Fuente MD CHEMISTRY ORDERABL ES Performing Organization Address City/[facility] Co de Phone Number [facility] [place] [address] * (ABNORMAL) Phosphorus (05/19/2024 5:11 AM EDT) Phosphorus 5.1(H) 2.5 - 4.5 mg/dL 05/19/2024 5:58 AM EDT [facility] Blood VENOUS BLOOD SPECIMEN / Unknown IP Care Team Draw / Unknown 05/19/2024 5:11 AM EDT 05/19/2024 5:30 AM EDT Mary De La Fuente MD CHEMISTRY ORDERABL ES [facility] [place] [address] * (ABNORMAL) Basic Metabolic Panel (non-fasting) (05/19/2024 5:11 AM EDT) Glucose 162 65 - 199 mg/dL 05/19/2024 6:53 AM T [facility] Comment:Glucose Concentratio n >=200 mg/dL [...] De La Fuente MD CHEMISTRY ORDERABL ES [facility] [place] [address] * (ABNORMAL) CBC (with Diff) (05/19/2024 5:11 [...] 0.10 x10(3)/mc L 05/19/2024 5:37 AM EDT [facility] Immature Gran % 0.9 % 5:37 AM EDT [facility] Immature Gran Absolute 0.12(H) 0.00 - 0.04 x10(3)/mc L 05/19/2024 5:37 AM EDT [facility] Blood VENOUS BLOOD SPECIMEN / Unknown IP Care Team Draw / Unknown 05/19/2024 5:11 AM EDT 05/19/2024 5:30 AM EDT Mary De La Fuente MD HEMATOLOGY ORDERAB LES Performing Organization Address City/[facility]/ZIP Co de Phone Number [facility] [place] [address] * POC, GLUCOSE (05/19/2024 3:27 AM EDT) Glucometer, POC 171 65 - 199 mg/dL 05/19/2024 3:28 AM EDT [facility] Comment:Supplemental ranges: <140 mg/dL before meals <180 mg/dL all other times of the day. Blood CAPILLARY BLOOD / Unknown 05/19/2024 3:27 AM EDT 05/19/2024 3:28 AM EDT Saba Spears MD POINT OF CARE TEST ORDERABLES [facility] [place] [address] * POC, GLUCOSE (05/19/2024 12:02 AM EDT) Glucometer, POC 183 65 - 199 mg/dL 05/19/2024 12:02 AM EDT [facility] Comment:Supplemental ranges: <140 mg/dL before meals <180 mg/dL all other times of the day. Blood CAPILLARY BLOOD / Unknown 05/19/2024 12:02 AM EDT 05/19/2024 12:02 AM EDT Saba Spears MD POINT OF CARE TEST ORDERABLES Performing Organization Address [facility] Co de Phone Number [facility] [place] [address] * (ABNORMAL) POC, GLUCOSE (05/18/2024 8:05 PM EDT) Glucometer, POC 207(H) 65 - 199 mg/dL 05/18/2024 8:06 PM EDT [facility] Comment:Supplemental ranges: <140 mg/dL before meals <180 mg/dL all other times of the day. Blood CAPILLARY BLOOD / Unknown 05/18/2024 8:05 PM EDT 05/18/2024 8:06 PM EDT Saba Spears MD POINT OF CARE TEST ORDERABLES Performing Organization Address [facility] Co de Phone Number [facility] [place] [address] * POC, GLUCOSE (05/18/2024 6:14 PM EDT) Glucometer, POC 174 65 - 199 mg/dL 05/18/2024 6:15 PM EDT [facility] Comment:Supplemental ranges: <140 mg/dL before meals <180 mg/dL all other times of the day. Blood CAPILLARY BLOOD / Unknown 05/18/2024 6:14 PM EDT 05/18/2024 6:15 PM EDT Saba Spears MD POINT OF CARE TEST ORDERABLES Performing Organization Address City/[facility] Co de Phone Number [facility] [place] [address] * (ABNORMAL) Basic Metabolic Panel (05/18/2024 5:04 PM EDT) Glucose 170 65 - 199 mg/dL 05/18/2024 6:14 PM EDT [facility] Comment:Glucose Concentratio n >=200 mg/dL [...] MD CHEMISTRY ORDERABLE S Performing Organization Address City/[facility]/ZIP Co de Phone Number [facility] [place] [address] * (ABNORMAL) POC, GLUCOSE (05/18/2024 11:45 AM EDT) Glucometer, POC 211(H) 65 - 199 mg/dL 05/18/2024 11:45 AM EDT [facility] Comment:Supplemental ranges: <140 mg/dL before meals <180 mg/dL all other times of the day. Blood CAPILLARY BLOOD / Unknown 05/18/2024 11:45 AM EDT 05/18/2024 11:45 AM EDT Saba Spears MD POINT OF CARE TEST ORDERABLES Performing Organization Address [facility]/ZIP Co de Phone Number [facility] [place] [address] * C diff Screen (05/18/2024 11:31 AM EDT) C Diff Interp Negative Negative 05/18/2024 3:02 PM EDT [facility] Comment:Clostridioides diffi cile is not present in the specimen. If patient is having diarrhea suspected to be from an infectious cause, then Soap & Water Contact Precautions are still required. If patient is having diarrhea with no suspected infectious cause use standard precautions. C Diff PCR Negative Negative, Indeterminate 05/18/2024 3:02 PM EDT [facility] Stool STOOL SPECIMEN / Unknown Non Blood Collection / Unknown 05/18/2024 11:31 AM EDT 05/18/2024 12:09 PM EDT Saba Spears MD MICROBIOLOGY - GENE RAL ORDERABLES Performing Organization Address City/[facility]/ZIP Co de Phone Number [facility] [place] [address] * C Diff PCR (05/18/2024 11:31 AM EDT) Stool STOOL SPECIMEN / Unknown Non Blood Collection / Unknown 05/18/2024 11:31 AM EDT 05/18/2024 12:09 PM EDT Saba Spears MD MICROBIOLOGY - GENE RAL ORDERABLES [facility] [place] [address] * Creatinine, urine, random (05/18/2024 8:57 AM EDT) Creatinine, Urine 44 mg/dL 05/18/2024 9:36 AM EDT [facility] Urine URINE SPECIMEN / Unknown Non Blood Collection / Unknown 05/18/2024 8:57 AM EDT 05/18/2024 9:07 AM EDT Saba Spears MD URINE ORDERABLES [facility] [place] [address] * Electrolytes, urine, random (05/18/2024 8:57 AM EDT) Sodium, Urine 50 mMol/L 05/18/2024 12:09 PM EDT [facility] Potassium, Urine 13 mMol/L 05/18/2024 12:09 PM EDT [facility] Chloride, Urine 35 mMol/L 05/18/2024 12:09 PM EDT [facility] Urine URINE SPECIMEN / Unknown Non Blood Collection / Unknown 05/18/2024 8:57 AM EDT 05/18/2024 9:07 AM EDT Saba Spears MD URINE ORDERABLES [facility] [place] [address] * POC, GLUCOSE (05/18/2024 8:34 AM EDT) Glucometer, POC 182 65 - 199 mg/dL 05/18/2024 8:35 AM EDT [facility] Comment:Supplemental ranges: <140 mg/dL before meals <180 mg/dL all other times of the day. Blood CAPILLARY BLOOD / Unknown 05/18/2024 8:34 AM EDT 05/18/2024 8:35 AM EDT Saba Spears MD POINT OF CARE TEST ORDERABLES Performing Organization Address [facility] Co de Phone Number [facility] [place] [address] * POC, GLUCOSE (05/18/2024 4:10 AM EDT) Glucometer, POC 163 65 - 199 mg/dL 05/18/2024 4:10 AM EDT [facility] Comment:Supplemental ranges: <140 mg/dL before meals <180 mg/dL all other times of the day. Blood CAPILLARY BLOOD / Unknown 05/18/2024 4:10 AM EDT 05/18/2024 4:11 AM EDT Saba Spears MD POINT OF CARE TEST ORDERABLES Performing Organization Address City/[facility]/ZIP Co de Phone Number [facility] [place] [address] * (ABNORMAL) CBC (with Diff) (05/18/2024 4:01 AM EDT) White Blood Cell 9.84(H) 4.00 - 9.50 x10(3)/mc L 05/18/2024 4:19 AM EDT [facility] Red Blood Cell 3.24(L) 4.58 - 5.54 x10(6)/mc L 05/18/2024 4:19 AM EDT [facility] Hemoglobin 9.6(L) 13.7 - 16.5 [...] 3.20 x10(3)/mc L 05/18/2024 4:19 AM EDT [facility] Monocyte % 12.5 % 05/18/2024 4:19 AM EDT [facility] Monocyte Absolute 1.23(H) 0.30 - 0.90 x10(3)/mc L 05/18/2024 4:19 AM EDT [facility] Eos % 1.9 % 05/18/2024 4:19 AM EDT [facility] Eos Absolute 0.19 0.00 - 0.40 x10(3)/mc L 05/18/2024 4:19 AM EDT [facility] Basophil % 0.2 % 05/18/2024 4:19 AM EDT [facility] Baso Absolute 0.02 0.00 - 0.10 x10(3)/mc L 05/18/2024 4:19 AM EDT [facility] Immature Gran % 0.9 % 4:19 AM EDT [facility] Immature Gran Absolute 0.09(H) 0.00 - 0.04 x10(3)/mc L 05/18/2024 4:19 AM EDT [facility] Blood VENOUS BLOOD SPECIMEN / Unknown IP Care Team Draw / Unknown 05/18/2024 4:01 AM EDT 05/18/2024 4:13 AM EDT Mary De La Fuente MD HEMATOLOGY ORDERAB LES Performing Organization Address City/State/[facility] Co de Phone Number [facility] [place] [address] * (ABNORMAL) Magnesium (05/18/2024 4:00 AM EDT) Magnesium 1.09(H) 0.69 - 1.07 mMol/L 05/18/2024 10:11 AM EDT [facility] Blood VENOUS BLOOD SPECIMEN / Unknown IP Care Team Draw / Unknown 05/18/2024 4:00 AM EDT 05/18/2024 4:13 AM EDT Mary De La Fuente MD CHEMISTRY ORDERABL ES Performing Organization Address City/[facility]/ZIP Co de Phone Number [facility] [place] [address] * (ABNORMAL) Phosphorus (05/18/2024 4:00 AM EDT) Phosphorus 4.7(H) 2.5 - 4.5 mg/dL 05/18/2024 10:11 AM EDT [facility] Blood VENOUS BLOOD SPECIMEN / Unknown IP Care Team Draw / Unknown 05/18/2024 4:00 AM EDT 05/18/2024 4:13 AM EDT Mary De La Fuente MD CHEMISTRY ORDERABL ES Performing Organization Address [facility] Co de Phone Number [facility] [place] [address] * (ABNORMAL) Basic Metabolic Panel (non-fasting) (05/18/2024 4:00 AM EDT) Glucose 144 65 - 199 mg/dL 05/18/2024 10:11 AM EDT [facility] Comment:Glucose Concentratio n >=200 mg/dL plus symptoms is consistent with Diabetes Mellitus. Blood Urea Nitrogen 105(H) 10 - 20 mg/dL 05/18/2024 10:11 AM EDT [facility] Creatinine 2.69(H) 0.80 - 1.50 mg/dL 05/18/2024 10:11 AM EDT [facility] Sodium 134(L) 135 - 145 mMol/L 05/18/2024 10:11 AM EDT [facility] Potassium 5.6(H) 3.5 - 5.0 mMol/L 05/18/2024 10:11 AM EDT [facility] Chloride 107 98 - 107 mMol/L 05/18/2024 10:11 AM EDT [facility] Carbon Dioxide 11(L) 22 - 31 mMol/L 05/18/2024 10:11 AM EDT [facility] Anion Gap 16(H) 5 - 15 mMol/L 05/18/2024 10:11 AM EDT [facility] Calcium 8.8 8.5 - 10.5 mg/dL 05/18/2024 10:11 AM EDT [facility] Est Glomerular Filtration Rate - Male 25 mL/min/1. 73 m?? 05/18/2024 10:11 AM EDT [facility] Comment: This patient's estimated GFR [...] Fasting Status No 05/18/2024 10:11 AM EDT [facility] Blood VENOUS BLOOD SPECIMEN / Unknown IP Care Team Draw / Unknown 05/18/2024 4:00 AM EDT 05/18/2024 4:13 AM EDT Mary De La Fuente MD CHEMISTRY ORDERABL ES [facility] [place] [address] * (ABNORMAL) POC, GLUCOSE (05/17/2024 11:30 PM EDT) [facility] Signature Glucometer, POC 232(H) 65 - 199 mg/dL 05/17/2024 11:30 PM EDT [facility] Comment:Supplemental ranges: <140 mg/dL before meals <180 mg/dL all other times of the day. Blood CAPILLARY BLOOD / Unknown 05/17/2024 11:30 PM EDT 05/17/2024 11:30 PM EDT Saba Spears MD POINT OF CARE TEST ORDERABLES Performing Organization Address City/[facility] Co de Phone Number [facility] [place] [address] * POC, GLUCOSE (05/17/2024 8:12 PM EDT) Glucometer, POC 161 65 - 199 mg/dL 05/17/2024 8:12 PM EDT [facility] Comment:Supplemental ranges: <140 mg/dL before meals <180 mg/dL all other times of the day. Blood CAPILLARY BLOOD / Unknown 05/17/2024 8:12 PM EDT 05/17/2024 8:13 PM EDT Saba Spears MD POINT OF CARE TEST ORDERABLES Performing Organization Address [facility] Co de Phone Number [facility] [place] [address] * POC, GLUCOSE (05/17/2024 5:35 PM EDT) Glucometer, POC 167 65 - 199 mg/dL 05/17/2024 5:35 PM EDT [facility] Comment:Supplemental ranges: <140 mg/dL before meals <180 mg/dL all other times of the day. Blood CAPILLARY BLOOD / Unknown 05/17/2024 5:35 PM EDT 05/17/2024 5:35 PM EDT Saba Spears MD POINT OF CARE TEST ORDERABLES Performing Organization Address City/[facility]/ZIP Co de Phone Number [facility] [place] [address] * POC, GLUCOSE (05/17/2024 12:50 PM EDT) Glucometer, POC 147 65 - 199 mg/dL 05/17/2024 12:50 PM EDT [facility] Comment:Supplemental ranges: <140 mg/dL before meals <180 mg/dL all other times of the day. Blood CAPILLARY BLOOD / Unknown 05/17/2024 12:50 PM EDT 05/17/2024 12:50 PM EDT Saba Spears MD POINT OF CARE TEST ORDERABLES Performing Organization Address [facility]/ZIP Co de Phone Number [facility] [place] [address] * POC, GLUCOSE (05/17/2024 8:20 AM EDT) Glucometer, POC 139 65 - 199 mg/dL 05/17/2024 8:21 AM EDT [facility] Comment:Supplemental ranges: <140 mg/dL before meals <180 mg/dL all other times of the day. Blood CAPILLARY BLOOD / Unknown 05/17/2024 8:20 AM EDT 05/17/2024 8:21 AM EDT Treva Diaz MD POINT OF CARE TEST ORDERABLES Performing Organization Address [facility]/ZIP Co de Phone Number [facility] [place] [address] * (ABNORMAL) Magnesium (05/17/2024 5:49 AM EDT) Magnesium 1.14(H) 0.69 - 1.07 mMol/L 05/17/2024 6:58 AM EDT [facility] Blood IP Care Team Dra reilly / Nick 05/17/2024 5:49 AM EDT 05/17/2024 6:13 AM EDT Mary De La Fuente MD CHEMISTRY ORDERABL ES Performing Organization Address [facility] Co de Phone Number [facility] [place] [address] * (ABNORMAL) Phosphorus (05/17/2024 5:49 AM EDT) Phosphorus 5.6(H) 2.5 - 4.5 mg/dL 05/17/2024 6:58 AM EDT [facility] Blood IP Care Team w / Nick 05/17/2024 5:49 AM EDT 05/17/2024 6:13 AM EDT Mary De La Fuente MD CHEMISTRY ORDERABL ES [facility] [place] [address] * (ABNORMAL) Basic Metabolic Panel (non-fasting) (05/17/2024 5:49 AM EDT) Glucose 131 65 - 199 mg/dL 05/17/2024 6:58 AM EDT [facility] Comment:Glucose Concentratio n >=200 mg/dL plus symptoms is consistent with Diabetes Mellitus. Blood Urea Nitrogen 86(H) 10 - 20 mg/dL 05/17/2024 6:58 AM EDT [facility] Creatinine 3.07(H) 0.80 - 1.50 mg/dL 05/17/2024 6:58 AM EDT [facility] Sodium 134(L) 135 - 145 mMol/L 05/17/2024 6:58 AM T [facility] Potassium 5.0 3.5 - 5.0 mMol/L 05/17/2024 6:58 AM EDT [facility] Chloride 103 98 - 107 mMol/L 05/17/2024 6:[address] [facility] Carbon Dioxide 21(L) 22 - 31 mMol/L 05/17/2024 6:58 AM EDT [facility] Anion Gap 10 5 - 15 mMol/L 05/17/2024 6:58 AM T [facility] Calcium 8.7 8.5 - 10.5 mg/dL 05/17/2024 6:58 AM EDT [facility] Est Glomerular Filtration Rate - Male 21 mL/min/1. 73 m?? 05/17/2024 6:58 AM EDT [facility] Comment: This patient's estimated GFR [...] Fasting Status No 05/17/2024 6:58 AM EDT [facility] Blood IP Care Team Gia w / Unknown 05/17/2024 5:49 AM EDT 05/17/2024 6:13 AM EDT Mary De La Fuente MD CHEMISTRY ORDERABL ES [facility] [place] [address] * (ABNORMAL) CBC (with Diff) (05/17/2024 5:49 AM EDT) White Blood Cell 8.61 4.00 - 9.50 x10(3)/mc L [facility]24 [facility] Red Blood Cell 3.54(L) 4.58 - 5.54 x10(6)/mc L 05/17/2024 6:28 AM [facility] Hemoglobin 10.5(L) 13.7 - 16.5 g/dL 05/17/2024 6:28 AM [facility] Hematocrit 33.9(L) 40.5 - 48.5 % 05/17/2024 6:28 AM EDT [facility] Mean Cell Volume 95.8(H) 82.9 [...] % 0.1 % 05/17/2024 6:28 AM EDT [facility] Baso Absolute 0.01 0.00 - 0.10 x10(3)/mc L 05/17/2024 6:28 AM EDT [facility] Immature Gran % 1.2 % 6:28 AM EDT [facility] Immature Gran Absolute 0.10(H) 0.00 - 0.04 x10(3)/mc L 05/17/2024 6:28 AM EDT [facility] Blood IP Care Team Dra reilly / Nick 05/17/2024 5:49 AM EDT 05/17/2024 6:13 AM EDT Mary De La Fuente MD HEMATOLOGY ORDERAB LES Performing Organization Address City/[facility]/ZIP Co de Phone Number [facility] [place] [address] * Vancomycin Level, Random (05/17/2024 5:49 AM EDT) Vancomycin, Random 22.4 mg/L 2023 6:58 AM EDT [facility] Comment:This level is for de termination of the patient's vancomycin oppe-jclzt-dpg-curve (AUC) value. Contact the inpatient pharmacy for interpretation. Blood IP Care Team Dra reilly / Nick 05/17/2024 5:49 AM EDT 05/17/2024 6:13 AM EDT Treva Diaz MD CHEMISTRY ORDERABL ES [facility] [place] [address] * POC, GLUCOSE (05/17/2024 3:54 AM EDT) Glucometer, POC 135 65 - 199 mg/dL 05/17/2024 3:55 AM EDT [facility] Comment:Supplemental ranges: <140 mg/dL before meals <180 mg/dL all other times of the day. Blood CAPILLARY BLOOD / Unknown 05/17/2024 3:54 AM EDT 05/17/2024 3:55 AM EDT Treva Diaz MD POINT OF CARE TEST ORDERABLES [facility] [place] [address] * POCT Glucose (05/16/2024 11:46 PM EDT) Glucose, POC 148 65 - 199 mg/dL [facility] Comment: Supplemental ranges: <140 mg/dL before meals <180 mg/dL all other times of the day Blood 05/16/2024 11:4 6 PM EDT 05/16/2024 11:46 PM EDT Treva Diaz MD POINT OF CARE TEST ORDERABLES [facility] [place] [address] * POCT Glucose (05/16/2024 9:06 PM EDT) Glucose, POC 191 65 - 199 mg/dL [facility] Comment: Supplemental ranges: <140 mg/dL before meals <180 mg/dL all other times of the day Blood 05/16/2024 9:06 PM EDT 05/16/2024 9:06 PM EDT Treva Diaz MD POINT OF CARE TEST ORDERABLES [facility] [place] [address] * POCT Glucose (05/16/2024 8:04 PM EDT) Glucose, POC 199 65 - 199 mg/dL [facility] Comment: Supplemental ranges: <140 mg/dL before meals <180 mg/dL all other times of the day Blood 05/16/2024 8:04 PM EDT 05/16/2024 8:04 PM EDT Treva Diaz MD POINT OF CARE TEST ORDERABLES [facility] [place] [address] * POCT Glucose (05/16/2024 4:51 PM EDT) Glucose, POC 162 65 - 199 mg/dL [facility] Comment: Supplemental ranges: <140 mg/dL before meals <180 mg/dL all other times of the day Blood 05/16/2024 4:51 PM EDT 05/16/2024 4:51 PM EDT Treva Diaz MD POINT OF CARE TEST ORDERABLES Performing Organization Address City/[facility]/ZIP Co de Phone Number [facility] [place] [address] * POCT Glucose (05/16/2024 12:48 PM EDT) Glucose, POC 153 65 - 199 mg/dL [facility] Comment: Supplemental ranges: <140 mg/dL before meals <180 mg/dL all other times of the day Blood 05/16/2024 12:4 8 PM EDT 05/16/2024 12:48 PM EDT Treva Diaz MD POINT OF CARE TEST ORDERABLES [facility] [place] [address] * POCT Glucose (05/16/2024 8:45 AM EDT) Glucose, POC 165 65 - 199 mg/dL [facility] Comment: Supplemental ranges: <140 mg/dL before meals <180 mg/dL all other times of the day Blood 05/16/2024 8:45 AM EDT 05/16/2024 8:45 AM EDT Treva Diaz MD POINT OF CARE TEST ORDERABLES [facility] [place] [address] * (ABNORMAL) Differential, Automated (05/16/2024 5:14 AM EDT) Neutrophil % 79.4 % [facility] Neutrophil Absolute 9.22(H) 1.70 - 6.10 x10(3)/mc L [facility] Lymph % 6.6 % [facility] Lymphocytes Abs 0.8(L) 0.9 - 3.2 x10(3)/ L [facility] Monocyte % 9.5 % [facility] Monocyte Abs 1.1(H) 0.3 - 0.9 x10(3)/mc L [facility] Eos % 0.0 % [facility] Eosinophils Abs 0.0 0.0 - 0.4 x10(3)/ L [facility] Basophil % 0.2 % [facility] Baso Absolute 0.0 0.0 - 0.1 x10(3)/mc L [facility] Immature Gran % 4.30 % [facility] Comment: Immature granulocytes(IG's)percentage and absolute count will include metamyelocytes, myelocytes, and promyelocytes. Blood smears from CBCs yielding IG's will be scanned manually for concordance. If this scan disagrees with the automated IG or if promyelocytes are noted, a manual differential will be performed. Immature Gran Absolute 0.50(H) 0.00 - 0.04 x10(3)/mc L [facility] Blood 05/16/2024 5:14 AM EDT 05/16/2024 5:38 AM EDT Narrative Resulting Agency Comment Spec In Lab Carlotta Davis MD HEMATOLOGY OR DERABLES Performing Organization Address City/[facility]/[place] [address] * (ABNORMAL) Hemogram (05/16/2024 5:14 AM EDT) White Blood Cell 11.6(H) 4.0 - 9.5 x10(3)/mc L [facility] Red Blood Cell 3.59(L) 4.58 - 5.54 x10(6)/mc L [facility] Hemoglobin 10.5(L) 13.7 - 16.5 g/dL [facility] Hematocrit 33.8(L) 40.5 - 48.5 % [facility] Mean Cell Volume 94.2(H) 82.9 - 93.1 [facility] Mean Cell Hemoglobin 29.2 27.5 - 32.1 pg [facility] Mean Cell Hemoglobin Concentration 31.1(L) 32.0 - 35.7 g/dL [facility] Platelet 317 145 - 357 x10(3)/mc L [facility] RDW Standard Deviation 55.1(H) 36.0 - 45.0 [facility] RDW coefficient of variation 15.9(H) 11.4 - 13.8 % [facility] Mean Platelet Volume 10.6 7.6 - 12.9 [facility] NRBC% auto 0.0 % [facility] NRBC Absolute 0.000 0.000 - 0.000 x10(3)/mc L [facility] Blood 05/16/2024 5:14 AM EDT 05/16/2024 5:38 AM EDT Narrative Resulting Agency Comment Spec In Lab Carlotta Davis MD HEMATOLOGY OR DERABLES Performing Organization Address City/[facility]/ZIP Co de Phone Number [facility] [place] [address] * (ABNORMAL) Magnesium (05/16/2024 5:14 AM EDT) Magnesium 1.22(H) 0.69 - 1.07 mmol/L [facility] Blood 05/16/2024 5:14 AM EDT 05/16/2024 5:38 AM EDT Narrative Resulting Agency Comment Spec In Lab Mary De La Fuente MD CHEMISTRY ORDERABL ES Performing Organization Address [facility] Co de Phone Number [facility] [place] [address] * (ABNORMAL) Phosphorus (05/16/2024 5:14 AM EDT) Pathologist [facility] Phosphorus 6.3(H) 2.5 - 4.5 mg/dL [facility] Blood 05/16/2024 5:14 AM EDT 05/16/2024 5:38 AM EDT Narrative Resulting Agency Comment Spec In Lab Mary De La Fuente MD CHEMISTRY ORDERABL ES Performing Organization Address [facility] Co de Phone Number [facility] [place] [address] * (ABNORMAL) Basic Metabolic Panel (non-fasting) (05/16/2024 5:14 AM EDT) Pathologist [facility] Glucose 154 65 - 199 mg/dL [facility] Comment:Diabetes: >=200 mg/d L plus symptoms Blood Urea Nitrogen 74(H) 10 - 20 mg/dL [facility] Creatinine 2.88(H) 0.80 - 1.50 mg/dL [facility] Sodium 133(L) 135 - 145 mmol/L [facility] Potassium 5.0 3.5 - 5.0 mmol/L [facility] Comment: Please note: ??Patients with WBC >100,000 may have falsely elevated Potassium levels. ??For accurate Potassium quantification in these patients send serum separator tube (gold top) for subsequent determinations. ??Contact the Clinical Chemistry Laboratory if there are any questions. Chloride 101 98 - 107 mmol/L [facility] Carbon Dioxide 21(L) 22 - 31 mmol/L [facility] Anion Gap 11 5 - 15 mmol/L [facility] Calcium 8.8 8.5 - 10.5 mg/dL [facility] Est Glomerular Filtration Rate 23(L) >=60 mL/min/1. 73 m?? [facility] Comment: This patient's estimated GFR [...] MD CHEMISTRY ORDERABL ES Performing Organization Address [facility] Co de Phone Number [facility] [place] [address] * Vancomycin Level, Random (05/16/2024 5:14 AM EDT) Vancomycin, Random 29.1 mg/L M [facility] Comment: This level is for determination of the patient's vancomycin saaa-yemgy-eba-curve (AUC) value. Contact the inpatient pharmacy for interpretation. Blood 05/16/2024 5:14 AM EDT 05/16/2024 5:38 AM EDT Treva Diaz MD CHEMISTRY ORDERABL ES Performing Organization Address City/[facility]/ZIP Co de Phone Number [facility] [place] [address] * POCT Glucose (05/16/2024 3:53 AM EDT) Glucose, POC 166 65 - 199 mg/dL [facility] Comment: Supplemental ranges: <140 mg/dL before meals <180 mg/dL all other times of the day Blood 05/16/2024 3:53 AM EDT 05/16/2024 3:53 AM EDT Treva Diaz MD POINT OF CARE TEST ORDERABLES [facility] [place] [address] * POCT Glucose (05/15/2024 11:41 PM EDT) Glucose, POC 171 65 - 199 mg/dL [facility] Comment: Supplemental ranges: <140 mg/dL before meals <180 mg/dL all other times of the day Blood 05/15/2024 11:4 1 PM EDT 05/15/2024 11:41 PM EDT Treva Diaz MD POINT OF CARE TEST ORDERABLES [facility] [place] [address] * POCT Glucose (05/15/2024 10:32 PM EDT) Glucose, POC 183 65 - 199 mg/dL [facility] Comment: Supplemental ranges: <140 mg/dL before meals <180 mg/dL all other times of the day Blood 05/15/2024 10:3 2 PM EDT 05/15/2024 10:32 PM EDT Treva Diaz MD POINT OF CARE TEST ORDERABLES [facility] [place] [address] * POCT Glucose (05/15/2024 7:53 PM EDT) Glucose, POC 187 65 - 199 mg/dL [facility] Comment: Supplemental ranges: <140 mg/dL before meals <180 mg/dL all other times of the day Blood 05/15/2024 7:53 PM EDT 05/15/2024 7:53 PM EDT Treva Diaz MD POINT OF CARE TEST ORDERABLES Performing Organization Address [facility]/ZIP Co de Phone Number [facility] [place] [address] * MRSA PCR Screen ([facility]/CGP/APD/NLH) (05/15/2024 4:15 PM EDT) [facility] MRSA PCR Negative Negative [facility] MRSA (Interp) Methicillin-resist ant Staphylococcus aureus (MRSA) is NOT DETECTED The MRSA target DNA sequences (mec and SCC) were not detected within the acceptable ranges using the Xpert MRSA NxG on the GeneXpert Dx System ([employer]). This suggests the absence of MRSA in the patient specimen submitted for testing. This test is cleared by the U.S. Food and Drug Administration for clinical use and its performance characteristics have been verified by the [facility] at [facility]. This result does not rule out the presence of any other organisms. Rare false negative results may occur if MRSA is present at low concentrations with much higher concentrations of other organisms including MRSE or S. aureus with an empty SCC cassette. [facility] Comment: [VERIFIED DATE]05.15.24 Verified By:Lupe Jensen (Electronic Signature) Nasopharyngeal Swab 05/15/20 4:15 PM EDT 05/15/2024 6:28 PM EDT Comment:Specimen Type->Nasop haryngeal Swab Narrative Resulting Agency Comment Spec In Lab Treva Diaz MD MOLECULAR ORDERABL ES Performing Organization Address [facility]/ZIP Co de Phone Number [facility] [place] [address] * (ABNORMAL) POCT Glucose (05/15/2024 3:20 PM EDT) Glucose, POC 224(H) 65 - 199 mg/dL [facility] Comment: Supplemental ranges: <140 mg/dL before meals <180 mg/dL all other times of the day Blood 05/15/2024 3:20 PM EDT 05/15/2024 3:20 PM EDT Treva Diaz MD POINT OF CARE TEST ORDERABLES [facility] [place] [address] * (ABNORMAL) POCT Glucose (05/15/2024 11:39 AM EDT) Glucose, POC 213(H) 65 - 199 mg/dL [facility] Comment: Supplemental ranges: <140 mg/dL before meals <180 mg/dL all other times of the day Blood 05/15/2024 11:3 9 AM EDT 05/15/2024 11:39 AM EDT Treva Diaz MD POINT OF CARE TEST ORDERABLES [facility] [place] [address] * POCT Glucose (05/15/2024 8:02 AM EDT) Glucose, POC 190 65 - 199 mg/dL [facility] Comment: Supplemental ranges: <140 mg/dL before meals <180 mg/dL all other times of the day Blood 05/15/2024 8:02 AM EDT 05/15/2024 8:02 AM EDT Treva Diaz MD POINT OF CARE TEST ORDERABLES [facility] [place] [address] * (ABNORMAL) Differential, Automated (05/15/2024 5:12 AM EDT) Neutrophil % 85.3 % [facility] Neutrophil Absolute 11.37(H) 1.70 - 6.10 x10(3)/mc L [facility] Lymph % 3.7 % [facility] Lymphocytes Abs 0.5(L) 0.9 - 3.2 x10(3)/mc L [facility] Monocyte % 9.1 % [facility] Monocyte Abs 1.2(H) 0.3 - 0.9 x10(3)/mc L [facility] Eos % 0.0 % [facility] Eosinophils Abs 0.0 0.0 - 0.4 x10(3)/[facility] Basophil % 0.1 % [facility] Baso Absolute 0.0 0.0 - 0.1 x10(3)/mc L [facility] Immature Gran % 1.80 % [facility] Comment: Immature granulocytes(IG's)percentage and absolute count will include metamyelocytes, myelocytes, and promyelocytes. Blood smears from CBCs yielding IG's will be scanned manually for concordance. If this scan disagrees with the automated IG or if promyelocytes are noted, a manual differential will be performed. Immature Gran Absolute 0.24(H) 0.00 - 0.04 x10(3)/mc L [facility] Blood 05/15/2024 5:12 AM EDT 05/15/2024 5:38 AM EDT Narrative Resulting Agency Comment Spec In Lab Carlotta Davis MD HEMATOLOGY OR DERABLES [facility] [place] [address] * (ABNORMAL) Hemogram (05/15/2024 5:12 AM EDT) White Blood Cell 13.4(H) 4.0 - 9.5 x10(3)/[facility] Red Blood Cell 3.58(L) 4.58 - 5.54 x10(6)/ L [facility] Hemoglobin 10.9(L) 13.7 - 16.5 g/dL [facility] Hematocrit 34.1(L) 40.5 - 48.5 % [facility] Mean Cell Volume 95.3(H) 82.9 - 93.1 fL [facility] Mean Cell Hemoglobin 30.4 27.5 - 32.1 pg [facility] Mean Cell Hemoglobin Concentration 32.0 32.0 - 35.7 g/dL [facility] Platelet 227 145 - 357 x10(3)/[facility] RDW Standard Deviation 55.8(H) 36.0 - 45.0 [facility] RDW coefficient of variation 15.8(H) 11.4 - 13.8 % [facility] Mean Platelet Volume 10.7 7.6 - 12.9 [facility] NRBC% auto 0.0 % [facility] NRBC Absolute 0.000 0.000 - 0.000 x10(3)/[facility] Blood 05/15/2024 5:12 AM EDT 05/15/2024 5:38 AM EDT Narrative Resulting Agency Comment Spec In Lab Carlotta Davis MD HEMATOLOGY OR DERABLES [facility] [place] [address] * (ABNORMAL) Magnesium (05/15/2024 5:12 AM EDT) Magnesium 1.21(H) 0.69 - 1.07 mmol/L [facility] Blood 05/15/2024 5:12 AM EDT 05/15/2024 5:38 AM EDT Narrative Resulting Agency Comment Spec In Lab Mary De La Fuente MD CHEMISTRY ORDERABL ES Performing Organization Address [facility]/ZIP Co de Phone Number [facility] [place] [address] * (ABNORMAL) Phosphorus (05/15/2024 5:12 AM EDT) Phosphorus 6.5(H) 2.5 - 4.5 mg/dL [facility] Comment:result rechecked-HN Blood 05/15/2024 5:12 AM EDT 05/15/2024 5:38 AM EDT Narrative Resulting Agency Comment Spec In Lab Mary De La Fuente MD CHEMISTRY ORDERABL ES Performing Organization Address [facility] Co de Phone Number [facility] [place] [address] * (ABNORMAL) Basic Metabolic Panel (non-fasting) (05/15/2024 5:12 AM EDT) Glucose 217(H) 65 - 199 mg/dL [facility] Comment:Diabetes: >=200 mg/d L plus symptoms Blood Urea Nitrogen 58(H) 10 - 20 mg/dL [facility] Creatinine 2.46(H) 0.80 - 1.50 mg/dL [facility] Comment:result rechecked-HN Sodium 135 135 - 145 mmol/L [facility] Potassium 5.2(H) 3.5 - 5.0 mmol/L [facility] Comment: Please note: ??Patients with WBC >100,000 may have falsely elevated Potassium levels. ??For accurate Potassium quantification in these patients send serum separator tube (gold top) for subsequent determinations. ??Contact the Clinical Chemistry Laboratory if there are any questions. Chloride 100 98 - 107 mmol/L [facility] Carbon Dioxide 23 22 - 31 mmol/L [facility] Anion Gap 12 5 - 15 mmol/L [facility] Calcium 8.8 8.5 - 10.5 mg/dL [facility] Est Glomerular Filtration Rate 27(L) >=60 mL/min/1. 73 m?? [facility] Comment: This patient's estimated GFR [...] MD CHEMISTRY ORDERABL ES Performing Organization Address City/[facility]/ZIP Co de Phone Number [facility] [place] [address] * (ABNORMAL) POCT Glucose (05/15/2024 4:55 AM EDT) Glucose, POC 223(H) 65 - 199 mg/dL [facility] Comment: Supplemental ranges: <140 mg/dL before meals <180 mg/dL all other times of the day Blood 05/15/2024 4:55 AM EDT 05/15/2024 4:55 AM EDT Treva Diaz MD POINT OF CARE TEST ORDERABLES [facility] [place] [address] * (ABNORMAL) POCT Glucose (05/15/2024 2:51 AM EDT) Glucose, POC 279(H) 65 - 199 mg/dL [facility] Comment: Supplemental ranges: <140 mg/dL before meals <180 mg/dL all other times of the day Blood 05/15/2024 2:51 AM EDT 05/15/2024 2:51 AM EDT Treva Diaz MD POINT OF CARE TEST ORDERABLES [facility] [place] [address] * (ABNORMAL) POCT Glucose (05/14/2024 9:03 PM EDT) Glucose, POC 257(H) 65 - 199 mg/dL [facility] Comment: Supplemental ranges: <140 mg/dL before meals <180 mg/dL all other times of the day Blood 05/14/2024 9:03 PM EDT 05/14/2024 9:03 PM EDT Treva Diaz MD POINT OF CARE TEST ORDERABLES Performing Organization Address City/[facility]/ZIP Co de Phone Number [facility] [place] [address] * (ABNORMAL) POCT Glucose (05/14/2024 7:15 PM EDT) Glucose, POC 207(H) 65 - 199 mg/dL [facility] Comment: Supplemental ranges: <140 mg/dL before meals <180 mg/dL all other times of the day Blood 05/14/2024 7:15 PM EDT 05/14/2024 7:15 PM EDT Treva Diaz MD POINT OF CARE TEST ORDERABLES [facility] [place] [address] * POCT Glucose (05/14/2024 4:47 PM EDT) Glucose, POC 188 65 - 199 mg/dL [facility] Comment: Supplemental ranges: <140 mg/dL before meals <180 mg/dL all other times of the day Blood 05/14/2024 4:47 PM EDT 05/14/2024 4:47 PM EDT Treva Diaz MD POINT OF CARE TEST ORDERABLES Performing Organization Address [facility]/ZIP Co de Phone Number [facility] [place] [address] * POCT Glucose (05/14/2024 1:21 PM EDT) Glucose, POC 163 65 - 199 mg/dL [facility] Comment: Supplemental ranges: <140 mg/dL before meals <180 mg/dL all other times of the day Blood 05/14/2024 1:21 PM EDT 05/14/2024 1:21 PM EDT Treva Diaz MD POINT OF CARE TEST ORDERABLES Performing Organization Address [facility]/ZIP Co de Phone Number [facility] [place] [address] * Anaerobic Culture (05/14/2024 11:33 AM EDT) Anaerobic Culture No anaerobic organisms isolated [facility] Toe 05/14/2024 11:3 3 AM EDT 05/14/2024 12:33 PM EDT Comment:PROXIMAL RIGHT 2ND T OE Narrative Resulting Agency Comment Spec In Lab Gennaro Meyers MD MICROBIOLOGY - GENE RAL ORDERABLES Performing Organization Address [facility]/ZIP Co de Phone Number [facility] [place] [address] * (ABNORMAL) Tissue culture (05/14/2024 11:33 AM EDT) Tissue Culture One colony of Coagulase negative Staphylococcus species(A) [facility] Gram Stain Few Neutrophils seen Rare Gram Positive Cocci in pairs seen Results called to and read back by Dr. Mihaela Galvan ??05/14/24 14:57:00 (A) [facility] Organism Coagulase negative Staphylococcus species(A) [facility] Organism Gram Positive Cocci in pairs(A) [facility] Toe 05/14/2024 11:3 3 AM [...] Sensitive Comment:Gentamicin i s not appropriate for [place]-therapy. Coagulase Negative Staphylococcus species Levofloxacin MICROSCAN METHOD [...] METHOD Sensitive Gennaro Meyers MD MICROBIOLOGY - [facility] ORDERABLES [facility] [place] [address] * Surgical Pathology Report (05/14/2024 11:32 AM EDT) Surgical Pathology Report [id number] ? Location: [id number]; [id number]; A The signing [...] MD, Shima Verified: ??05/20/2024 11:25 Performed at: ??-[facility] Dept. of Pathology, [place] [address] Instrument Lens Grinder Apprentice: Polly Barnhart MD, FCAP, ??CLIA Certificate: [id number] SPECIMEN(S) SUBMITTED A - RIGHT 2ND TOE, [...] Sections/Processi ng: Blocks submitted for decalcification: A1-A2. Dcs Engineer sections in 2 cassettes as follows: ?A1-A2: ??Longitudinal section of digit ??cmk [facility] 05/14/2024 11:3 2 AM EDT Gennaro Meyers MD PATHOLOGY/CYTOLOGY ORDERABLES [facility] [place] [address] * Specimen to Pathology (05/14/2024 11:32 AM EDT) AP Specimen 05/14/2024 11:3 2 AM EDT 05/14/2024 11:32 AM EDT Narrative [facility] - 05/14/2024 11:32 AM EDT Specimen requisition ordered. ??Separate Pathology report to follow Treva Diaz MD PATHOLOGY/CYTOLOGY ORDERABLES Performing Organization Address City/[facility]/[place] [address] * (ABNORMAL) POCT Glucose (05/14/2024 7:58 AM EDT) [facility] Glucose, POC 203(H) 65 - 199 mg/dL [facility] Comment: Supplemental ranges: <140 mg/dL before meals <180 mg/dL all other times of the day Blood 05/14/2024 7:58 AM EDT 05/14/2024 7:58 AM EDT Treva Diaz MD POINT OF CARE TEST ORDERABLES Performing Organization Address City/[facility]/ZIP Co de Phone Number [facility] [place] [address] * (ABNORMAL) Differential, Automated (05/14/2024 5:01 AM EDT) [facility] Neutrophil % 80.5 % [facility] Neutrophil Absolute 12.45(H) 1.70 - 6.10 x10(3)/mc L [facility] Lymph % 5.5 % [facility] Lymphocytes Abs 0.8(L) 0.9 - 3.2 x10(3)/mc L [facility] Monocyte % 12.6 % [facility] Monocyte Abs 2.0(H) 0.3 - 0.9 x10(3)/mc L [facility] Eos % 0.3 % [facility] Eosinophils Abs 0.0 0.0 - 0.4 x10(3)/mc L [facility] Basophil % 0.2 % [facility] Baso Absolute 0.0 0.0 - 0.1 x10(3)/mc L [facility] Immature Gran % 0.90 % [facility] Comment: Immature granulocytes(IG's)percentage and absolute count will include metamyelocytes, myelocytes, and promyelocytes. Blood smears from CBCs yielding IG's will be scanned manually for concordance. If this scan disagrees with the automated IG or if promyelocytes are noted, a manual differential will be performed. Immature Gran Absolute 0.14(H) 0.00 - 0.04 x10(3)/mc L [facility] Blood 05/14/2024 5:01 AM EDT 05/14/2024 6:02 AM EDT Narrative Resulting Agency Comment Spec In Lab Carlotta Davis MD HEMATOLOGY OR DERABLES [facility] [place] [address] * (ABNORMAL) Hemogram (05/14/2024 5:01 AM EDT) White Blood Cell 15.5(H) 4.0 - 9.5 x10(3)/ L [facility] Red Blood Cell 3.55(L) 4.58 - 5.54 x10(6)/mc L [facility] Hemoglobin 10.8(L) 13.7 - 16.5 g/dL [facility] Hematocrit 32.8(L) 40.5 - 48.5 % [facility] Mean Cell Volume 92.4 82.9 - 93.1 fL [facility] Mean Cell Hemoglobin 30.4 27.5 - 32.1 pg [facility] Mean Cell Hemoglobin Concentration 32.9 32.0 - 35.7 g/dL [facility] Platelet 190 145 - 357 x10(3)/ L [facility] RDW Standard Deviation 53.2(H) 36.0 - 45.0 fL [facility] RDW coefficient of variation 15.6(H) 11.4 - 13.8 % [facility] Mean Platelet Volume 11.2 7.6 - 12.9 fL [facility] NRBC% auto 0.0 % [facility] NRBC Absolute 0.000 0.000 - 0.000 x10(3)/mc L [facility] Blood 05/14/2024 5:01 AM EDT 05/14/2024 6:02 AM EDT Narrative Resulting Agency Comment Spec In Lab Carlotta Davis MD HEMATOLOGY OR DERABLES Performing Organization Address [facility] Co de Phone Number [facility] [place] [address] * Magnesium (05/14/2024 5:01 AM EDT) Magnesium 0.98 0.69 - 1.07 mmol/L [facility] Blood 05/14/2024 5:01 AM EDT 05/14/2024 6:02 AM EDT Narrative Resulting Agency Comment Spec In Lab Mary De La Fuente MD CHEMISTRY ORDERABL ES Performing Organization Address [facility] Co de Phone Number [facility] [place] [address] * Phosphorus (05/14/2024 5:01 AM EDT) Phosphorus 2.8 2.5 - 4.5 mg/dL [facility] Blood 05/14/2024 5:01 AM EDT 05/14/2024 6:02 AM EDT Narrative Resulting Agency Comment Spec In Lab Mary De La Fuente MD CHEMISTRY ORDERABL ES Performing Organization Address [facility] Co de Phone Number [facility] [place] [address] * (ABNORMAL) Basic Metabolic Panel (non-fasting) (05/14/2024 5:01 AM EDT) Glucose 172 65 - 199 mg/dL [facility] Comment:Diabetes: >=200 mg/d L plus symptoms Blood Urea Nitrogen 46(H) 10 - 20 mg/dL [facility] Creatinine 1.56(H) 0.80 - 1.50 mg/dL [facility] Sodium 137 135 - 145 mmol/L [facility] Potassium 4.4 3.5 - 5.0 mmol/L [facility] Comment: Please note: ??Patients with WBC >100,000 may have falsely elevated Potassium levels. ??For accurate Potassium quantification in these patients send serum separator tube (gold top) for subsequent determinations. ??Contact the Clinical Chemistry Laboratory if there are any questions. Chloride 105 98 - 107 mmol/L [facility] Carbon Dioxide 22 22 - 31 mmol/L [facility] Anion Gap 10 5 - 15 mmol/L [facility] Calcium 8.7 8.5 - 10.5 mg/dL [facility] Est Glomerular Filtration Rate 47(L) >=60 mL/min/1. 73 m?? [facility] Comment: This patient's estimated GFR [...] De La Fuente MD CHEMISTRY ORDERABL ES [facility] [place] [address] * Vancomycin Level, Random (05/14/2024 5:01 AM EDT) Vancomycin, Random 13.5 mg/L [facility] Comment: This level is for determination of the patient's vancomycin phvx-uznae-zlv-curve (AUC) value. Contact the inpatient pharmacy for interpretation. Blood 05/14/2024 5:01 AM EDT 05/14/2024 6:02 AM EDT Treva Diaz MD CHEMISTRY ORDERABL ES [facility] [place] [address] * POCT Glucose (05/13/2024 8:41 PM EDT) Glucose, POC 179 65 - 199 mg/dL [facility] Comment: Supplemental ranges: <140 mg/dL before meals <180 mg/dL all other times of the day Blood 05/13/2024 8:41 PM EDT 05/13/2024 8:41 PM EDT Treva Diaz MD POINT OF CARE TEST ORDERABLES [facility] [place] [address] * POCT Glucose (05/13/2024 6:06 PM EDT) Glucose, POC 135 65 - 199 mg/dL [facility] Comment: Supplemental ranges: <140 mg/dL before meals <180 mg/dL all other times of the day Blood 05/13/2024 6:06 PM EDT 05/13/2024 6:06 PM EDT Treva Diaz MD POINT OF CARE TEST ORDERABLES [facility] [place] [address] * POCT Glucose (05/13/2024 11:12 AM EDT) Glucose, POC 163 65 - 199 mg/dL [facility] Comment: Supplemental ranges: <140 mg/dL before meals <180 mg/dL all other times of the day Blood 05/13/2024 11:1 2 AM EDT 05/13/2024 11:12 AM EDT Treva Diaz MD POINT OF CARE TEST ORDERABLES Performing Organization Address City/[facility]/ZIP Co de Phone Number [facility] [place] [address] * POCT Glucose (05/13/2024 7:47 AM EDT) Glucose, POC 194 65 - 199 mg/dL [facility] Comment: Supplemental ranges: <140 mg/dL before meals <180 mg/dL all other times of the day Blood 05/13/2024 7:47 AM EDT 05/13/2024 7:47 AM EDT Treva Diaz MD POINT OF CARE TEST ORDERABLES Performing Organization Address [facility]/ZIP Co de Phone Number [facility] [place] [address] * Scan, Peripheral Blood (05/13/2024 5:29 AM EDT) Plat estimate Normal [facility] RBC Morphology Abnormal [facility] [place] Cells 1-5 /HPF [facility] Plat, Giant Less than 1 /HPF [facility] Blood 05/13/2024 5:29 AM EDT 05/13/2024 5:49 AM EDT Narrative Resulting Agency Comment Spec In Lab Carlotta Davis MD HEMATOLOGY OR DERABLES Performing Organization Address City/[facility]/ZIP Co de Phone Number [facility] [place] [address] * (ABNORMAL) Differential, Automated (05/13/2024 5:29 AM EDT) [facility] Neutrophil % 81.8 % [facility] Neutrophil Absolute 12.66(H) 1.70 - 6.10 x10(3)/mc L [facility] Lymph % 5.0 % [facility] Lymphocytes Abs 0.8(L) 0.9 - 3.2 x10(3)/mc L [facility] Monocyte % 12.3 % [facility] Monocyte Abs 1.9(H) 0.3 - 0.9 x10(3)/mc L [facility] Eos % 0.2 % [facility] Eosinophils Abs 0.0 0.0 - 0.4 x10(3)/ L [facility] Basophil % 0.1 % [facility] Baso Absolute 0.0 0.0 - 0.1 x10(3)/mc L [facility] Immature Gran % 0.60 % [facility] Comment: Immature granulocytes(IG's)percentage and absolute count will include metamyelocytes, myelocytes, and promyelocytes. Blood smears from CBCs yielding IG's will be scanned manually for concordance. If this scan disagrees with the automated IG or if promyelocytes are noted, a manual differential will be performed. Immature Gran Absolute 0.09(H) 0.00 - 0.04 x10(3)/mc L [facility] Blood 05/13/2024 5:29 AM EDT 05/13/2024 5:49 AM EDT Narrative Resulting Agency Comment Spec In Lab Carlotta Davis MD HEMATOLOGY OR DERABLES [facility] [place] [address] * (ABNORMAL) Hemogram (05/13/2024 5:29 AM EDT) White Blood Cell 15.5(H) 4.0 - 9.5 x10(3)/ L [facility] Red Blood Cell 3.64(L) 4.58 - 5.54 x10(6)/mc L [facility] Hemoglobin 10.9(L) 13.7 - 16.5 g/dL [facility] Hematocrit 33.3(L) 40.5 - 48.5 % [facility] Mean Cell Volume 91.5 82.9 - 93.1 fL [facility] Mean Cell Hemoglobin 29.9 27.5 - 32.1 pg [facility] Mean Cell Hemoglobin Concentration 32.7 32.0 - 35.7 g/dL [facility] Platelet 186 145 - 357 x10(3)/[facility] RDW Standard Deviation 53.0(H) 36.0 - 45.0 [facility] RDW coefficient of variation 15.8(H) 11.4 - 13.8 % [facility] Mean Platelet Volume 11.8 7.6 - 12.9 [facility] NRBC% auto 0.0 % [facility] NRBC Absolute 0.000 0.000 - 0.000 x10(3)/[facility] Blood 05/13/2024 5:29 AM EDT 05/13/2024 5:49 AM EDT Narrative Resulting Agency Comment Spec In Lab Carlotta Davis MD HEMATOLOGY OR DERABLES [facility] [place] [address] * Magnesium (05/13/2024 5:29 AM EDT) Pathologist [facility] Magnesium 0.99 0.69 - 1.07 mmol/L [facility] Blood 05/13/2024 5:29 AM EDT 05/13/2024 5:49 AM EDT Narrative Resulting Agency Comment Spec In Lab Mary De La Fuente MD CHEMISTRY ORDERABL ES Performing Organization Address City/[facility]/ZIP Co de Phone Number [facility] [place] [address] * Phosphorus (05/13/2024 5:29 AM EDT) Phosphorus 2.7 2.5 - 4.5 mg/dL [facility] Blood 05/13/2024 5:29 AM EDT 05/13/2024 5:49 AM EDT Narrative Resulting Agency Comment Spec In Lab Mary De La Fuente MD CHEMISTRY ORDERABL ES Performing Organization Address [facility] Co de Phone Number [facility] [place] [address] * (ABNORMAL) Basic Metabolic Panel (non-fasting) (05/13/2024 5:29 AM EDT) Glucose 166 65 - 199 mg/dL [facility] Comment:Diabetes: >=200 mg/d L plus symptoms Blood Urea Nitrogen 57(H) 10 - 20 mg/dL [facility] Creatinine 1.53(H) 0.80 - 1.50 mg/dL [facility] Sodium 137 135 - 145 mmol/L [facility] LABORATORY Potassium 4.4 3.5 - 5.0 mmol/L [facility] Comment: Please note: ??Patients with WBC >100,000 may have falsely elevated Potassium levels. ??For accurate Potassium quantification in these patients send serum separator tube (gold top) for subsequent determinations. ??Contact the Clinical Chemistry Laboratory if there are any questions. Chloride 104 98 - 107 mmol/L [facility] Carbon Dioxide 24 22 - 31 mmol/L [facility] Anion Gap 9 5 - 15 mmol/L [facility] Calcium 8.7 8.5 - 10.5 mg/dL [facility] Est Glomerular Filtration Rate 49(L) >=60 mL/min/1. 73 m?? [facility] Comment: This patient's estimated GFR [...] MD CHEMISTRY ORDERABL ES Performing Organization Address [facility] Co de Phone Number [facility] [place] [address] * POCT Glucose (05/12/2024 11:46 PM EDT) Glucose, POC 165 65 - 199 mg/dL [facility] Comment: Supplemental ranges: <140 mg/dL before meals <180 mg/dL all other times of the day Blood 05/12/2024 11:4 6 PM EDT 05/12/2024 11:46 PM EDT Treva Diaz MD POINT OF CARE TEST ORDERABLES Performing Organization Address City/[facility]/ZIP Co de Phone Number [facility] [place] [address] * POCT Glucose (05/12/2024 8:36 PM EDT) Glucose, POC 164 65 - 199 mg/dL [facility] Comment: Supplemental ranges: <140 mg/dL before meals <180 mg/dL all other times of the day Blood 05/12/2024 8:36 PM EDT 05/12/2024 8:36 PM EDT Treva Diaz MD POINT OF CARE TEST ORDERABLES Performing Organization Address [facility] Co de Phone Number [facility] [place] [address] * POCT Glucose (05/12/2024 5:38 PM EDT) Glucose, POC 175 65 - 199 mg/dL [facility] Comment: Supplemental ranges: <140 mg/dL before meals <180 mg/dL all other times of the day Blood 05/12/2024 5:38 PM EDT 05/12/2024 5:38 PM EDT Treva Diaz MD POINT OF CARE TEST ORDERABLES Performing Organization Address [facility] Co de Phone Number [facility] [place] [address] * Vancomycin Level, Random (05/12/2024 2:10 PM EDT) Vancomycin, Random 22.3 mg/L [facility] Comment: This level is for determination of the patient's vancomycin jsvf-fsoif-ydz-curve (AUC) value. Contact the inpatient pharmacy for interpretation. Blood 05/12/2024 2:10 PM EDT 05/12/2024 2:23 PM EDT Treva Diaz MD CHEMISTRY ORDERABL ES Performing Organization Address [facility] Co de Phone Number [facility] [place] [address] * POCT Glucose (05/12/2024 1:42 PM EDT) Glucose, POC 168 65 - 199 mg/dL [facility] Comment: Supplemental ranges: <140 mg/dL before meals <180 mg/dL all other times of the day Blood 05/12/2024 1:42 PM EDT 05/12/2024 1:42 PM EDT Treva Diaz MD POINT OF CARE TEST ORDERABLES Performing Organization Address City/[facility]/ZIP Co de Phone Number [facility] [place] [address] * Duplex for DVT, Leg, Unilat (05/12/2024 10:19 AM EDT) VB Text Report Department: Vascular Surgery Lab Patient: [id number] (JOSSY SHANKS) CPT: [id number] Referring Physician: MARY DE LA FUENTE ?? [...] MD VASCULAR ORDERABLE S Performing Organization Address [facility] Co de Phone Number [facility] * POCT Glucose (05/12/2024 9:00 AM EDT) Glucose, POC 161 65 - 199 mg/dL [facility] Comment: Supplemental ranges: <140 mg/dL before meals <180 mg/dL all other times of the day Blood 05/12/2024 9:00 AM EDT 05/12/2024 9:00 AM EDT Treva Diaz MD POINT OF CARE TEST ORDERABLES Performing Organization Address City/[facility]/ZIP Co de Phone Number [facility] [place] [address] * (ABNORMAL) Sedimentation rate (05/12/2024 4:45 AM EDT) [facility] Sedimentation Rate Automated >119(H) 3 - 46 mm/hr [facility] Comment: Effective September 24, 2019 [...] MD HEMATOLOGY ORDERABLE S Performing Organization Address [facility]/ZIP Co de Phone Number [facility] [place] [address] * (ABNORMAL) CRP, acute inflammation (05/12/2024 4:45 AM EDT) [facility] C-Reactive Protein 152.4(H) <=4.9 mg/L [facility] Blood Venous Draw / Unknown 05/12/2024 4:45 AM EDT 05/12/2024 5:12 AM EDT Narrative Resulting Agency Comment Spec In Lab Juan José Harrison MD CHEMISTRY ORDERABLES Performing Organization Address City/[facility]/ZIP Co de Phone Number [facility] [place] [address] * (ABNORMAL) Differential, Automated (05/12/2024 4:45 AM EDT) [facility] Neutrophil % 87.9 % [facility] Neutrophil Absolute 17.31(H) 1.70 - 6.10 x10(3)/mc L [facility] Lymph % 3.9 % [facility] Lymphocytes Abs 0.8(L) 0.9 - 3.2 x10(3)/mc L [facility] Monocyte % 7.4 % [facility] Monocyte Abs 1.4(H) 0.3 - 0.9 x10(3)/[facility] Eos % 0.0 % [facility] Eosinophils Abs 0.0 0.0 - 0.4 x10(3)/[facility] Basophil % 0.1 % [facility] Baso Absolute 0.0 0.0 - 0.1 x10(3)/[facility] Immature Gran % 0.70 % [facility] Comment: Immature granulocytes(IG's)percentage and absolute count will include metamyelocytes, myelocytes, and promyelocytes. Blood smears from CBCs yielding IG's will be scanned manually for concordance. If this scan disagrees with the automated IG or if promyelocytes are noted, a manual differential will be performed. Immature Gran Absolute 0.14(H) 0.00 - 0.04 x10(3)/[facility] Blood 05/12/2024 4:45 AM EDT 05/12/2024 5:06 AM EDT Narrative Resulting Agency Comment Spec In Lab Carlotta Davis MD HEMATOLOGY OR DERABLES Performing Organization Address City/State/[facility] Co de Phone Number [facility] [place] [address] * (ABNORMAL) Hemogram (05/12/2024 4:45 AM EDT) White Blood Cell 19.7(H) 4.0 - 9.5 x10(3)/ L [facility] Red Blood Cell 3.58(L) 4.58 - 5.54 x10(6)/[facility] Hemoglobin 10.9(L) 13.7 - 16.5 g/dL [facility] Hematocrit 33.1(L) 40.5 - 48.5 % [facility] Mean Cell Volume 92.5 82.9 - 93.1 fL [facility] Mean Cell Hemoglobin 30.4 27.5 - 32.1 pg [facility] Mean Cell Hemoglobin Concentration 32.9 32.0 - 35.7 g/dL [facility] Platelet 165 145 - 357 x10(3)/mc L [facility] RDW Standard Deviation 53.2(H) 36.0 - 45.0 fL [facility] RDW coefficient of variation 15.7(H) 11.4 - 13.8 % [facility] Mean Platelet Volume 12.1 7.6 - 12.9 fL [facility] NRBC% auto 0.0 % [facility] NRBC Absolute 0.000 0.000 - 0.000 x10(3)/mc L [facility] Blood 05/12/2024 4:45 AM EDT 05/12/2024 5:06 AM EDT Narrative Resulting Agency Comment Spec In Lab Carlotta Davis MD HEMATOLOGY OR DERABLES [facility] [place] [address] * Magnesium (05/12/2024 4:45 AM EDT) Magnesium 1.07 0.69 - 1.07 mmol/L [facility] Blood 05/12/2024 4:45 AM EDT 05/12/2024 5:06 AM EDT Narrative Resulting Agency Comment Spec In Lab Mary De La Fuente MD CHEMISTRY ORDERABL ES Performing Organization Address City/[facility]/ZIP Co de Phone Number [facility] [place] [address] * Phosphorus (05/12/2024 4:45 AM EDT) Phosphorus 2.7 2.5 - 4.5 mg/dL [facility] Blood 05/12/2024 4:45 AM EDT 05/12/2024 5:06 AM EDT Narrative Resulting Agency Comment Spec In Lab Mary De La Fuente MD CHEMISTRY ORDERABL ES [facility] [place] [address] * (ABNORMAL) Basic Metabolic Panel (non-fasting) (05/12/2024 4:45 AM EDT) Glucose 156 65 - 199 mg/dL [facility] Comment:Diabetes: >=200 mg/d L plus symptoms Blood Urea Nitrogen 72(H) 10 - 20 mg/dL [facility] Creatinine 2.03(H) 0.80 - 1.50 mg/dL [facility] Sodium 135 135 - 145 mmol/L [facility] Potassium 4.5 3.5 - 5.0 mmol/L [facility] Comment: Please note: ??Patients with WBC >100,000 may have falsely elevated Potassium levels. ??For accurate Potassium quantification in these patients send serum separator tube (gold top) for subsequent determinations. ??Contact the Clinical Chemistry Laboratory if there are any questions. Chloride 101 98 - 107 mmol/L [facility] Carbon Dioxide 24 22 - 31 mmol/L [facility] Anion Gap 10 5 - 15 mmol/L [facility] Calcium 8.4(L) 8.5 - 10.5 mg/dL [facility] Est Glomerular Filtration Rate 35(L) >=60 mL/min/1. 73 m?? [facility] Comment: This patient's estimated GFR [...] De La Fuente MD CHEMISTRY ORDERABL ES [facility] [place] [id number] * ANGY, legs, multiple levels (05/12/2024 3:22 AM EDT) VB Text Report Department: Vascular Surgery Lab Patient: [id number] (JOSSY SHANKS) CPT: [id number] Referring Physician: THO DICKSON ?? Phone: Indications: [...] Glucose, POC 201(H) 65 - 199 mg/dL [facility] Comment: Supplemental ranges: <140 mg/dL before meals <180 mg/dL all other times of the day Blood 05/11/2024 8:14 PM EDT 05/11/2024 8:14 PM EDT Treva Diaz MD POINT OF CARE TEST ORDERABLES Performing Organization Address City/[facility] Co de Phone Number [facility] [place] [address] * Vancomycin Level, Random (05/11/2024 8:10 PM EDT) Vancomycin, Random 21.7 mg/L [facility] Comment: This level is for determination of the patient's vancomycin itfa-thubs-saq-curve (AUC) value. Contact the inpatient pharmacy for interpretation. Blood 05/11/2024 8:10 PM EDT 05/11/2024 8:32 PM EDT Treva Diaz MD CHEMISTRY ORDERABL ES Performing Organization Address [facility] Co de Phone Number [facility] [place] [address] * POCT Glucose (05/11/2024 4:34 PM EDT) Glucose, POC 197 65 - 199 mg/dL [facility] Comment: Supplemental ranges: <140 mg/dL before meals <180 mg/dL all other times of the day Blood 05/11/2024 4:34 PM EDT 05/11/2024 4:34 PM EDT Treva Diaz MD POINT OF CARE TEST ORDERABLES Performing Organization Address [facility] Co de Phone Number [facility] [place] [address] * (ABNORMAL) POCT Glucose (05/11/2024 11:47 AM EDT) Glucose, POC 255(H) 65 - 199 mg/dL [facility] Comment: Supplemental ranges: <140 mg/dL before meals <180 mg/dL all other times of the day Blood 05/11/2024 11:4 7 AM EDT 05/11/2024 11:47 AM EDT Treva Diaz MD POINT OF CARE TEST ORDERABLES Performing Organization Address City/[facility]/ZIP Co de Phone Number [facility] [place] [address] * (ABNORMAL) POCT Glucose (05/11/2024 6:57 AM EDT) Glucose, POC 200(H) 65 - 199 mg/dL [facility] Comment: Supplemental ranges: <140 mg/dL before meals <180 mg/dL all other times of the day Blood 05/11/2024 6:57 AM EDT 05/11/2024 6:57 AM EDT Treva Diaz MD POINT OF CARE TEST ORDERABLES Performing Organization Address City/[facility]/ZIP Co de Phone Number [facility] [place] [address] * (ABNORMAL) Differential, Automated (05/11/2024 2:00 AM EDT) Neutrophil % 85.8 % [facility] Neutrophil Absolute 22.16(H) 1.70 - 6.10 x10(3)/mc L [facility] Lymph % 1.5 % [facility] Lymphocytes Abs 0.4(L) 0.9 - 3.2 x10(3)/mc L [facility] Monocyte % 4.9 % [facility] Monocyte Abs 1.3(H) 0.3 - 0.9 x10(3)/mc L [facility] Eos % 0.0 % [facility] Eosinophils Abs 0.0 0.0 - 0.4 x10(3)/mc L [facility] Basophil % 0.1 % [facility] Baso Absolute 0.0 0.0 - 0.1 x10(3)/[facility] Immature Gran % 7.70 % [facility] Comment: Immature granulocytes(IG's)percentage and absolute count will include metamyelocytes, myelocytes, and promyelocytes. Blood smears from CBCs yielding IG's will be scanned manually for concordance. If this scan disagrees with the automated IG or if promyelocytes are noted, a manual differential will be performed. Immature Gran Absolute 1.98(H) 0.00 - 0.04 x10(3)/[facility] Blood 05/11/2024 2:00 AM EDT 05/11/2024 2:07 AM EDT Narrative Resulting Agency Comment Spec In Lab Carlotta Davis MD HEMATOLOGY OR DERABLES Performing Organization Address City/State/[facility] Co de Phone Number [facility] [place] [address] * (ABNORMAL) Hemogram (05/11/2024 2:00 AM EDT) White Blood Cell 25.8(H) 4.0 - 9.5 x10(3)/[facility] Red Blood Cell 3.64(L) 4.58 - 5.54 x10(6)/ L [facility] Hemoglobin 10.9(L) 13.7 - 16.5 g/dL [facility] Hematocrit 32.5(L) 40.5 - 48.5 % [facility] Mean Cell Volume 89.3 82.9 - 93.1 fL [facility] Mean Cell Hemoglobin 29.9 27.5 - 32.1 pg [facility] Mean Cell Hemoglobin Concentration 33.5 32.0 - 35.7 g/dL [facility] Platelet 141(L) 145 - 357 x10(3)/[facility] RDW Standard Deviation 51.2(H) 36.0 - 45.0 fL [facility] RDW coefficient of variation 15.6(H) 11.4 - 13.8 % [facility] Mean Platelet Volume 12.9 7.6 - 12.9 fL [facility] NRBC% auto 0.0 % [facility] NRBC Absolute 0.000 0.000 - 0.000 x10(3)/mc L [facility] Blood 05/11/2024 2:00 AM EDT 05/11/2024 2:07 AM EDT Narrative Resulting Agency Comment Spec In Lab Carlotta Davis MD HEMATOLOGY OR DERABLES Performing Organization Address [facility]/ZIP Co de Phone Number [facility] [place] [address] * Magnesium (05/11/2024 2:00 AM EDT) Magnesium 1.01 0.69 - 1.07 mmol/L [facility] Blood 05/11/2024 2:00 AM EDT 05/11/2024 2:07 AM EDT Narrative Resulting Agency Comment Spec In Lab Mary De La Fuente MD CHEMISTRY ORDERABL ES Performing Organization Address [facility] Co de Phone Number [facility] [place] [address] * Phosphorus (05/11/2024 2:00 AM EDT) Phosphorus 4.0 2.5 - 4.5 mg/dL [facility] Blood 05/11/2024 2:00 AM EDT 05/11/2024 2:07 AM EDT Narrative Resulting Agency Comment Spec In Lab Mary De La Fuente MD CHEMISTRY ORDERABL ES Performing Organization Address City/[facility]/ZIP Co de Phone Number [facility] [place] [address] * (ABNORMAL) Basic Metabolic Panel (non-fasting) (05/11/2024 2:00 AM EDT) Glucose 212(H) 65 - 199 mg/dL [facility] Comment:Diabetes: >=200 mg/d L plus symptoms Blood Urea Nitrogen 72(H) 10 - 20 mg/dL [facility] Creatinine 2.58(H) 0.80 - 1.50 mg/dL [facility] Comment:result rechecked-HN Sodium 136 135 - 145 mmol/L [facility] Potassium 4.7 3.5 - 5.0 mmol/L [facility] Comment: Please note: ??Patients with WBC >100,000 may have falsely elevated Potassium levels. ??For accurate Potassium quantification in these patients send serum separator tube (gold top) for subsequent determinations. ??Contact the Clinical Chemistry Laboratory if there are any questions. Chloride 100 98 - 107 mmol/L [facility] Carbon Dioxide 24 22 - 31 mmol/L [facility] Anion Gap 12 5 - 15 mmol/L [facility] Calcium 8.3(L) 8.5 - 10.5 mg/dL [facility] Est Glomerular Filtration Rate 26(L) >=60 mL/min/1. 73 m?? [facility] Comment: This patient's estimated GFR [...] MD CHEMISTRY ORDERABL ES Performing Organization Address [facility] Co de Phone Number [facility] [place] [address] * Vancomycin Level, Random (05/11/2024 2:00 AM EDT) Vancomycin, Random 21.4 mg/L [facility] Comment: This level is for determination of the patient's vancomycin rdog-vogmk-nbk-curve (AUC) value. Contact the inpatient pharmacy for interpretation. Blood 05/11/2024 2:00 AM EDT 05/11/2024 2:07 AM EDT Mary De La Fuente MD CHEMISTRY ORDERABL ES Performing Organization Address [facility] de Phone Number [facility] [place] [address] * (ABNORMAL) POCT Glucose (05/10/2024 11:40 PM EDT) Glucose, POC 230(H) 65 - 199 mg/dL [facility] Comment: Supplemental ranges: <140 mg/dL before meals <180 mg/dL all other times of the day Blood 05/10/2024 11:4 0 PM EDT 05/10/2024 11:40 PM EDT Treva Diaz MD POINT OF CARE TEST ORDERABLES Performing Organization Address [facility] Co de Phone Number [facility] [place] [address] * POCT Glucose (05/10/2024 4:09 PM EDT) Glucose, POC 189 65 - 199 mg/dL [facility] Comment: Supplemental ranges: <140 mg/dL before meals <180 mg/dL all other times of the day Blood 05/10/2024 4:09 PM EDT 05/10/2024 4:09 PM EDT Treva Diaz MD POINT OF CARE TEST ORDERABLES Performing Organization Address City/[facility]/ZIP Co de Phone Number [facility] [place] [address] * POCT Glucose (05/10/2024 12:11 PM EDT) Glucose, POC 185 65 - 199 mg/dL [facility] Comment: Supplemental ranges: <140 mg/dL before meals <180 mg/dL all other times of the day Blood 05/10/2024 12:1 1 PM EDT 05/10/2024 12:11 PM EDT Mary De La Fuente MD POINT OF CARE TEST ORDERABLES Performing Organization Address [facility] Co de Phone Number [facility] [place] [address] * Vancomycin Level, Random (05/10/2024 12:00 PM EDT) Vancomycin, Random 15.5 mg/L [facility] Comment: This level is for determination of the patient's vancomycin ufmg-hilid-pzg-curve (AUC) value. Contact the inpatient pharmacy for interpretation. Blood 05/10/2024 12:0 0 PM EDT 05/10/2024 12:21 PM EDT Tho Dickson MD CHEMISTRY ORDERABLES Performing Organization Address [facility] Co de Phone Number [facility] [place] [address] * POCT Glucose (05/10/2024 8:09 AM EDT) Glucose, POC 195 65 - 199 mg/dL [facility] Comment: Supplemental ranges: <140 mg/dL before meals <180 mg/dL all other times of the day Blood 05/10/2024 8:09 AM EDT 05/10/2024 8:09 AM EDT Mary De La Fuente MD POINT OF CARE TEST ORDERABLES [facility] [place] [address] * CK (05/10/2024 6:55 AM EDT) Creatine Kinase 58 0 - 200 unit/L [facility] Blood Venous Draw / Unknown 05/10/2024 6:55 AM EDT 05/10/2024 7:41 AM EDT Narrative Resulting Agency Comment Spec In Lab Emmanuel Corey DO CHEMISTRY ORDERABLES Performing Organization Address [facility] Co de Phone Number [facility] [place] [address] * (ABNORMAL) Phosphorus (05/10/2024 6:55 AM EDT) [facility] Phosphorus 5.1(H) 2.5 - 4.5 mg/dL [facility] Blood 05/10/2024 6:55 AM EDT 05/10/2024 6:59 AM EDT Narrative Resulting Agency Comment Spec In Lab Tho Dickson MD CHEMISTRY ORDERABLES Performing Organization Address [facility] Co de Phone Number [facility] [place] [address] * (ABNORMAL) Basic Metabolic Panel (non-fasting) (05/10/2024 6:55 AM EDT) Pathologist [facility] Glucose 193 65 - 199 mg/dL [facility] Comment:Diabetes: >=200 mg/d L plus symptoms Blood Urea Nitrogen 69(H) 10 - 20 mg/dL [facility] Creatinine 3.75(H) 0.80 - 1.50 mg/dL [facility] Sodium 128(L) 135 - 145 mmol/L [facility] Potassium 5.0 3.5 - 5.0 mmol/L [facility] Comment: Please note: ??Patients with WBC >100,000 may have falsely elevated Potassium levels. ??For accurate Potassium quantification in these patients send serum separator tube (gold top) for subsequent determinations. ??Contact the Clinical Chemistry Laboratory if there are any questions. Chloride 93(L) 98 - 107 mmol/L [facility] Carbon Dioxide 23 22 - 31 mmol/L [facility] Anion Gap 12 5 - 15 mmol/L [facility] Calcium 8.6 8.5 - 10.5 mg/dL [facility] Est Glomerular Filtration Rate 17(L) >=60 mL/min/1. 73 m?? [facility] Comment: This patient's estimated GFR [...] Dickson MD CHEMISTRY ORDERABLES Performing Organization Address City/[facility]/ZIP Co de Phone Number [facility] [place] [address] * Lactate, whole blood, send to lab ([facility]) (05/10/2024 6:55 AM EDT) Lactate WB 1.7 0.5 - 2.2 mmol/L [facility] Blood 05/10/2024 6:55 AM EDT 05/10/2024 7:00 AM EDT Narrative Resulting Agency Comment Spec In Lab Tho Dickson MD CHEMISTRY ORDERABLES [facility] [place] [address] * MRI Foot wwo Contrast Right (05/10/2024 5:51 AM EDT) WORKSTATION ID [id number] RAD Anatomical Region Laterality Modality Foot Right [...] who have questions please contact the health childcare center administrator that requested your imaging first. ? Electronically signed by: Trinidad Mota MD, [facility] ([phone]), at 05/10/2024 12:56 PM Narrative 05/10/2024 12:56 [...] patients who have questions please contactthe health childcare center administrator that requested your imaging first. Electronically signed by: Trinidad Mota MD, [facility]([phone]), at 05/10/2024 12:56 PM Tho Dickson MD IMG MRI ORDERABLES * Creatinine, urine, random (05/10/2024 4:15 AM EDT) Creatinine, Urine 106 mg/dL [facility] Urine 05/10/2024 4:15 AM EDT 05/10/2024 4:23 AM EDT Narrative Resulting Agency Comment Spec In Lab Tho Dickson MD URINE ORDERABLES Performing Organization Address [facility] Co de Phone Number [facility] [place] [address] * Sodium, urine, random (05/10/2024 4:15 AM EDT) Sodium, Urine <20 mmol/L [facility] Urine 05/10/2024 4:15 AM EDT 05/10/2024 4:23 AM EDT Narrative Resulting Agency Comment Spec In Lab Tho Dickson MD URINE ORDERABLES Performing Organization Address [facility]/ZIP Co de Phone Number [facility] [place] [address] * Urea nitrogen, urine, random (05/10/2024 4:15 AM EDT) Urea Nitrogen, Urine 580 mg/dL [facility] Urine 05/10/2024 4:15 AM EDT 05/10/2024 4:23 AM EDT Narrative Resulting Agency Comment Spec In Lab Tho Dickson MD URINE ORDERABLES Performing Organization Address [facility] de Phone Number [facility] [place] [address] * (ABNORMAL) Skin/Superficial Wound Culture Toe (05/10/2024 2:56 AM EDT) Skin/Superfic ial Wound Culture Rare mixed bacterial morphotypes suggestive of normal cutaneous armani including Rare Gram Negative Rods (A) [facility] Gram Stain Many Neutrophils seen Few Gram Positive Cocci seen (A) [facility] Organism Gram Negative Rods(A) [facility] Organism Gram Positive Cocci(A) [facility] Superficial Wound TOE STRUCTURE / Unknown 05/10/2024 2:56 AM EDT 05/10/2024 5:18 AM EDT Comment:Right toe wound Narrative Resulting Agency Comment Spec In Lab Tho Dickson MD MICROBIOLOGY - GENER AL ORDERABLES Performing Organization Address [facility] Co de Phone Number [facility] [place] [address] * (ABNORMAL) Urinalysis without microscopic (05/10/2024 2:42 AM EDT) Glucose, Urine Dipstick Negative Negative mg/dL [facility] Protein, Urine Dipstick 30(A) Negative mg/dL [facility] Bilirubin, Urine Dipstick Negative Negative mg/dL [facility] Comment: Clinical correlation required for positive Urine Bilirubin results as false positive may occur with some drugs and drug related products. If a false positive is suspected a serum total bilirubin should be considered if clinically indicated. Urobilinogen, Urine Dipstick Normal Normal mg/dL [facility] pH, Urn (dipstick) 5.5 5.0 - 8.0 [facility] Blood, Urine Dipstick Large(A) Negative mg/dL [facility] Ketone, Urine Dipstick Negative Negative mg/dL [facility] Nitrite, Urine Dipstick Negative Negative [facility] Leukocytes, Urine Dipstick Small(A) Negative mcL [facility] Appearance, Urine Dipstick Cloudy(A) Clear [facility] Specific Ermine Urine Automated 1.017 1.005 - 1.030 [facility] Color, Urine Dipstick [place](A) Yellow [facility] Urine 05/10/2024 2:42 AM EDT 05/10/2024 2:57 AM EDT Narrative Resulting Agency Comment Spec In Lab Tho Dickson MD URINE ORDERABLES [facility] [place] [address] * XR Chest One View (05/10/2024 2:37 AM EDT) Pathologist Sekal AS WORKSTATION ID [id number] RAD Anatomical Region Laterality Modality Chest N/A Digital Radiogra phy Impressions 05/10/2024 3:27 AM EDT Bibasilar atelectasis. Thank you for letting us participate in the care of this patient. ??If you are a health care provider and have any questions regarding this report, please contact the number below. ??For patients who have questions please contact the health childcare center administrator that requested your imaging first. ? [...] patients who have questions please contactthe health childcare center administrator that requested your imaging first. Tho Dickson MD IMG DX ORDERABLES * Blood culture (05/10/2024 2:32 AM EDT) Blood Culture No growth at 5 days. [facility] Blood STRUCTURE OF RIGHT HAND / Unknown 05/10/2024 2:32 AM EDT 05/10/2024 4:17 AM EDT Narrative Resulting Agency Comment Spec In Lab Tho Dickson MD MICROBIOLOGY - BLOOD ORDERABLES Performing Organization Address [facility] Co de Phone Number [facility] [place] [address] * (ABNORMAL) POCT Glucose (05/10/2024 2:30 AM EDT) [facility] Glucose, POC 201(H) 65 - 199 mg/dL [facility] Comment: Supplemental ranges: <140 mg/dL before meals <180 mg/dL all other times of the day Blood 05/10/2024 2:30 AM EDT 05/10/2024 2:30 AM EDT Tho Dickson MD POINT OF CARE TEST O RDERABLES Performing Organization Address [facility] Co de Phone Number [facility] [place] [address] * Vancomycin Level, Random (05/10/2024 2:20 AM EDT) [facility] Vancomycin, Random 26.9 mg/L M [facility] Comment: This level is for determination of the patient's vancomycin udgc-dmtmz-nfs-curve (AUC) value. Contact the inpatient pharmacy for interpretation. Blood Venous Draw / Unknown 05/10/2024 2:20 AM EDT 05/10/2024 2:38 AM EDT Tho Dickson MD CHEMISTRY ORDERABLES Performing Organization Address [facility]/ZIP Co de Phone Number [facility] [place] [address] * Scan, Peripheral Blood (05/10/2024 2:20 AM EDT) [facility] Plat estimate Normal [facility] RBC Morphology Abnormal [facility] Ovalocytes 1-5 /HPF [facility] [place] Cells 1-5 /HPF [facility] Plat, Giant Less than 1 /HPF [facility] Blood 05/10/2024 2:20 AM EDT 05/10/2024 2:36 AM EDT Narrative Resulting Agency Comment Spec In Lab Anita Camacho MD HEMATOLOGY ORDERABLE S Performing Organization Address City/[facility]/ZIP Co de Phone Number [facility] [place] [address] * Type and Screen Validity (05/10/2024 2:20 AM EDT) T&S only valid at [facility] Comment:This Type and Screen result is only valid at the [facility] Blood 05/10/2024 2:20 AM EDT 05/10/2024 2:49 AM EDT Narrative Resulting Agency Comment Spec In Lab Anita Camacho MD BLOOD BANK LAB ORDER ANGELIQUE Performing Organization Address [facility]/ZIP Co de Phone Number [facility] [place] [address] * ABORH Recheck Status (05/10/2024 2:20 AM EDT) ABORH Recheck Order Order Placed [facility] ABORH Type Recheck Completed [facility] Blood 05/10/2024 2:20 AM EDT 05/10/2024 2:49 AM EDT Narrative Resulting Agency Comment Spec In Lab Anita Camacho MD BLOOD BANK LAB ORDER ANGELIQUE Performing Organization Address City/[facility]/ZIP Co de Phone Number [facility] [place] [address] * (ABNORMAL) Differential, Automated (05/10/2024 2:20 AM EDT) Neutrophil % 89.2 % [facility] Neutrophil Absolute 25.39(H) 1.70 - 6.10 x10(3)/mc L [facility] Lymph % 1.2 % [facility] Lymphocytes Abs 0.4(L) 0.9 - 3.2 x10(3)/mc L [facility] Monocyte % 2.9 % [facility] Monocyte Abs 0.8 0.3 - 0.9 x10(3)/mc L [facility] Eos % 0.0 % [facility] Eosinophils Abs 0.0 0.0 - 0.4 x10(3)/mc L [facility] Basophil % 0.2 % [facility] Baso Absolute 0.1 0.0 - 0.1 x10(3)/ L [facility] Immature Gran % 6.50 % [facility] Comment: Immature granulocytes(IG's)percentage and absolute count will include metamyelocytes, myelocytes, and promyelocytes. Blood smears from CBCs yielding IG's will be scanned manually for concordance. If this scan disagrees with the automated IG or if promyelocytes are noted, a manual differential will be performed. Immature Gran Absolute 1.85(H) 0.00 - 0.04 x10(3)/mc L [facility] Blood 05/10/2024 2:20 AM EDT 05/10/2024 2:36 AM EDT Narrative Resulting Agency Comment Spec In Lab Anita Camacho MD HEMATOLOGY ORDERABLE S [facility] [place] [address] * (ABNORMAL) Hemogram (05/10/2024 2:20 AM EDT) White Blood Cell 28.5(H) 4.0 - 9.5 x10(3)/mc L [facility] Red Blood Cell 3.83(L) 4.58 - 5.54 x10(6)/mc L [facility] Hemoglobin 11.4(L) 13.7 - 16.5 g/dL [facility] Hematocrit 34.5(L) 40.5 - 48.5 % [facility] Mean Cell Volume 90.1 82.9 - 93.1 fL [facility] Mean Cell Hemoglobin 29.8 27.5 - 32.1 pg [facility] Mean Cell Hemoglobin Concentration 33.0 32.0 - 35.7 g/dL [facility] Platelet 135(L) 145 - 357 x10(3)/mc L [facility] RDW Standard Deviation 51.9(H) 36.0 - 45.0 fL [facility] RDW coefficient of variation 15.6(H) 11.4 - 13.8 % [facility] Mean Platelet Volume 12.8 7.6 - 12.9 [facility] NRBC% auto 0.0 % [facility] NRBC Absolute 0.000 0.000 - 0.000 x10(3)/mc L [facility] Blood 05/10/2024 2:20 AM EDT 05/10/2024 2:36 AM EDT Narrative Resulting Agency Comment Spec In Lab Anita Camacho MD HEMATOLOGY ORDERABLE S [facility] [place] [address] * (ABNORMAL) Hemoglobin A1c (05/10/2024 2:20 AM EDT) Hemoglobin A1c 5.9(H) 4.3 - 5.6 % [facility] Comment: Reference Range: 4.3 - [...] Mellitus, Diabetes Care 2013; 36: Suppl. 1, O42-60 Estimated Average Glucose See note mg/dL [facility] Comment: Estimated Average Glucose not appropriate for patients over 70 years of age. Blood 05/10/2024 2:20 AM EDT 05/10/2024 2:36 AM EDT Narrative Resulting Agency Comment Spec In Lab Tho Dickson MD CHEMISTRY ORDERABLES Performing Organization Address City/[facility] [place] [address] * Hepatic Function Panel (05/10/2024 2:20 AM EDT) Protein, Total 7.6 6.1 - 8.0 g/dL [facility] Albumin 3.3 3.2 - 5.2 g/dL [facility] Aspartate Aminotransferase 21 0 - 39 unit/L [facility] Alanine Aminotransferase 19 0 - 55 unit/L [facility] Alkaline Phosphatase 42 40 - 130 unit/L [facility] Bilirubin, Total 0.5 0.2 - 1.3 mg/dL [facility] Bilirubin, Direct 0.2 0.0 - 0.3 mg/dL [facility] Blood 05/10/2024 2:20 AM EDT 05/10/2024 2:36 AM EDT Narrative Resulting Agency Comment Spec In Lab Tho Dickson MD CHEMISTRY ORDERABLES Performing Organization Address [facility] Co de Phone Number [facility] [place] [address] * (ABNORMAL) Phosphorus (05/10/2024 2:20 AM EDT) Phosphorus 4.6(H) 2.5 - 4.5 mg/dL [facility] Blood 05/10/2024 2:20 AM EDT 05/10/2024 2:36 AM EDT Narrative Resulting Agency Comment Spec In Lab Tho Dickson MD CHEMISTRY ORDERABLES Performing Organization Address City/[facility]/ZIP Co de Phone Number [facility] [place] [address] * Magnesium (05/10/2024 2:20 AM EDT) Magnesium 0.85 0.69 - 1.07 mmol/L [facility] Blood 05/10/2024 2:20 AM EDT 05/10/2024 2:36 AM EDT Narrative Resulting Agency Comment Spec In Lab Tho Dickson MD CHEMISTRY ORDERABLES [facility] [place] [address] * (ABNORMAL) Basic Metabolic Panel (non-fasting) (05/10/2024 2:20 AM EDT) Glucose 196 65 - 199 mg/dL [facility] Comment:Diabetes: >=200 mg/d L plus symptoms Blood Urea Nitrogen 71(H) 10 - 20 mg/dL [facility] Creatinine 3.94(H) 0.80 - 1.50 mg/dL [facility] Sodium 129(L) 135 - 145 mmol/L [facility] Potassium 5.3(H) 3.5 - 5.0 mmol/L [facility] Comment: Please note: ??Patients with WBC >100,000 may have falsely elevated Potassium levels. ??For accurate Potassium quantification in these patients send serum separator tube (gold top) for subsequent determinations. ??Contact the Clinical Chemistry Laboratory if there are any questions. Chloride 93(L) 98 - 107 mmol/L [facility] Carbon Dioxide 24 22 - 31 mmol/L [facility] Anion Gap 12 5 - 15 mmol/L [facility] Calcium 8.5 8.5 - 10.5 mg/dL [facility] Est Glomerular Filtration Rate 16(L) >=60 mL/min/1. 73 m?? [facility] Comment: This patient's estimated GFR [...] Dickson MD CHEMISTRY ORDERABLES Performing Organization Address [facility] Co de Phone Number [facility] [place] [address] * (ABNORMAL) Prothrombin Time (05/10/2024 2:20 AM EDT) Prothrombin Time 27.9(H) 9.4 - 12.5 sec [facility] International Normalization Ratio 2.5 [facility] Comment: An INR <2.0 indicates [...] MD HEMATOLOGY ORDERABLE S Performing Organization Address [facility]/ZIP Co de Phone Number [facility] [place] [address] * Type and screen ([facility]/TARA) (05/10/2024 2:20 AM EDT) ABORH Type O POSITIVE [facility] Patient BB History Not Found [facility] Expires at 2359 on: 05-13-2024 [facility] Ab Screen Interp Negative [facility] Blood 05/10/2024 2:20 AM EDT 05/10/2024 2:20 AM EDT Narrative [facility] - 05/10/2024 2:20 AM EDT This Type and Screen result is only valid at the [facility] Resulting Agency Comment Spec In Lab Tho Dickson MD BLOOD BANK LAB ORDER ANGELIQUE [facility] [place] [address] * (ABNORMAL) Lactate, whole blood, send to lab ([facility]) (05/10/2024 2:20 AM EDT) Lactate WB 2.3(H) 0.5 - 2.2 mmol/L [facility] Blood 05/10/2024 2:20 AM EDT 05/10/2024 2:36 AM EDT Narrative Resulting Agency Comment Spec In Lab Tho Dickson MD CHEMISTRY ORDERABLES Performing Organization Address [facility] Co de Phone Number [facility] [place] [address] documented in this encounter Visit Diagnoses Not [...] EVERY 4 HOURS SCHEDULED, First dose on [facility] 05/15/24 at 0400, Until Discontinued, CORRECTION [...] HOURS, First dose (after last modification) on [facility] 05/22/24 at 1230, Until Discontinued, Routine [...] - Provider: Admin Adt)2109 (Given - Provider: Saiam Quinteros RN) 0832 (Given - Provider: Juan [...] (Given - Provider: Alyssa Villalobos RN) 131 ([facility] Hold - Provider: Admin Adt - Reason: Transfer to a Procedural area)175 ([facility] Unhold - Provider: Admin Adt)2109 [...] Provider: Trice Zhao RN - Reason: NPO)1318 ([facility] Hold - Provider: Admin Adt [...] HOURS, First dose (after last modification) on [facility] 05/18/24 at 1430, Until Discontinued, Routine 0258 [...] Until Sun05/23/24 at 1815, Pain, Routine 1318 ([facility] Hold - Provider: Admin Adt [...] documented as of this encounter Care Teams Plate Corrector Relationship 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
--- OUTSIDE RECORDS SUMMARY | 2024-06-07 00:01 | XMS_ITS | Encounter Summary ---
Author Organization [facility] [place] [address] Care Team Providers Care Fitness Supervisor Name Role Phone Unknown Primary Care Provider Unavailabl e Reason for Referral * Consultation (Routine) - Closed Specialty Diagnoses / Procedures Referred By Contac t Referred To Contact Orthopaedics Diagnoses Degenerative lumbar spinal stenosis Darin Gonzáles MD [facility] [place] [address] Navjot Castillo MD [facility] [place] [address] Referral ID Status Reason Start Date Expiration Date V isits Requested Visits Authorized [id number] Closed Consult, Test & Treat 09/25/2017 09/25/2018 1 1 Reason for Visit * Reason Onset Date Comments Medication Refill 09/25/2017 Encounter Details Date Type Department Care Team (Late st Contact Info) Description 09/25/2017 Refill Pain Management at [place] [phone] Darin Gonzáles MD [facility] [place] [address] Degenerative lumbar spinal stenosis Social History Tobacco [...] 10:30 AM EDT Office Visit [place] [address] Elkin Garcia MD [facility] [address] [place] [address] Scheduled Referrals Name Type Priority Associated Diagnoses Orde r Schedule Referral to Spine Center Outpatient Referral Routine Degenerative lumbar spinal stenosis Ordered: 09/25/2017 documented as of this encounter Visit Diagnoses Diagnosis Degenerative lumbar spinal stenosis Spinal stenosis, lumbar region, without neurogenic claudication documented in this encounter Care Teams Fitness Supervisor Relationship Specialty Start Date End Date Unknown None PCP - General 07/25/17 11/25/17 documented as of this encounter
--- OUTSIDE RECORDS SUMMARY | 2024-06-07 00:01 | XMS_ITS | Encounter Summary ---
Author Organization [facility] Address [facility] [place] [address] Care Team Providers Care Business Analyst Ecommerce Name Role Phone None Primary Care Provider Unavailabl e Encounter Details Date Type Department Care Team (Late st Contact Info) Description 2024 9:20 PM EDT Ancillary Procedure [place] [phone] Tho Reyes MD [facility] [place] [address] Social History Tobacco Use Types Packs/Day Years Used Date Smoking Tobacco: Former Smokeless Tobacco: Never [facility] Inpatient Questions Answer Date Recorded Does [...] AM EDT Office [place] [phone] Elkin Garcia MD [facility] [place] [address] documented as of this encounter Procedures Procedure [...] FILM LIBRARY ORD ERABLES Performing Organization Address City/State[facility] Co de Phone Number [place], [place] documented in this encounter Visit Diagnoses Not on filedocumented in this encounter Care Teams Business Analyst Ecommerce Relationship 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
--- OUTSIDE RECORDS SUMMARY | 2024-06-07 00:01 | XMS_ITS | Encounter Summary ---
Author Organization [facility] Address [facility] [place] [address] Care Team Providers Care Certified Professional Midwife Name Role Phone None Primary Care Provider Unavailabl e Encounter Details Date Type Department Care Team (Latest Contact Info) Description 11/26/2017 12:39 PM EST - 11/26/2017 11:59 PM [facility] Hospital Encounter XRay at [address] [place] [address] Navjot Castillo MD [facility] [place] [address] Spinal stenosis of lumbar region, unspecified whether [...] 10:30 AM EDT Office [place] [address] Elkin Garcia MD [facility] DR [place] [address] documented as of this encounter Procedures Procedure [...] present documented in this encounter Care Teams Certified Professional Midwife Relationship 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
--- OUTSIDE RECORDS SUMMARY | 2024-06-07 00:01 | XMS_ITS | Encounter Summary ---
Author Organization [facility] [place] [address] Care Team Providers Care Senior Warehouse Clerk Name Role Phone Cruzito Hager MD Primary Care Provider + Encounter Details Date Type Department Care Team (Latest Contact Info) Description 01/08/2017 - 01/08/2017 11:59 PM EDT Hospital Encounter [place]iology [place] [address] Navjot Castillo MD [facility] [place] [address] Discharge Disposition: Home Social History Tobacco Use [...] AM EDT Office [place] [address] Elkin Garcia MD [facility] [place] [address] documented as of this encounter Procedures Procedure Name Priority Date/Time Associated Diagnosis Comments FILM LIBRARY STORAGE ONLY MR SPINE Routine 01/08/2017 12:00 AM EDT documented in this encounter Results * Film Library- Storage Only MR Spine (01/08/2017 12:00 AM EDT) Narrative [facility] - 09/26/2017 1:39 PM EST This exam is for storage only and is auto-finalizing. Navjot Castillo MD IMG FILM LIBRARY ORD ERABLES [place], [place] documented in this encounter Visit Diagnoses Not on filedocumented in this encounter Care Teams Senior Warehouse Clerk Relationship Specialty Start Date End Date Cruzito Hager MD [address] [facility] [place] [address] PCP - General 09/06/10 07/24/17 documented as of this encounter
--- OUTSIDE RECORDS SUMMARY | 2024-06-07 00:01 | XMS_ITS | Encounter Summary ---
[place] [address] Care Team Providers Care Torch Straightener Name Role Phone None Primary Care Provider Unavailabl e Reason for Visit * Reason Comments Low Back Pain Bilateral Hip Pain Bilateral Leg Pain Encounter Details Date Type Department Care Team (Late st Contact Info) Description 11/26/2017 2:20 PM EST Office [place] [address] Navjot Castillo MD [facility] [place] [address] Degenerative lumbar spinal stenosis Social History Tobacco [...] None Social history: The patient worked at [id number] until one year ago. He stopped working [...] SI joint. He can flex 70?? and [id number]??. Neurological exam: He walks with a normal [...] 10:30 AM EDT Office [place] [address] Elkin Garcia MD [facility] [place] [address] documented as of this encounter Visit Diagnoses Diagnosis Degenerative lumbar spinal stenosis Spinal stenosis, lumbar region, without neurogenic claudication documented in this encounter Care Teams Torch Straightener Relationship 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
--- OUTSIDE RECORDS SUMMARY | 2024-06-07 00:01 | XMS_ITS | Encounter Summary ---
Author Organization [facility] Address [facility] [place] [address] Care Team Providers Care Activity Manager Name Role Phone None Primary Care Provider Unavailabl e Encounter Details Date Type Department Care Team (Late st Contact Info) Description 2024 9:25 PM EDT Ancillary Procedure [place] [phone] Tho Reyes MD [facility] [place] [address] Social History Tobacco Use Types Packs/Day Years [...] 10:30 AM EDT Office [place] [phone] Elkin Garcia MD [facility] [place] [address] documented as of this encounter Procedures Procedure [...] FILM LIBRARY ORD ERABLES Performing Organization Address City/State/[facility] Co de Phone Number [place], [place] documented in this encounter Visit Diagnoses Not on filedocumented in this encounter Care Teams Activity Manager Relationship 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
[2024-06-07 00:35] LABS: MRSA PCR Negative (Negative)
[2024-06-07] MEDS: Albuterol 2.5 MG/3 ML INH SOLN VIAL UPD ×4 (00:36→20:52)
[2024-06-07] MEDS: Normal Saline Flush 10 ML SYR IVP ×4 (05:45→21:37)
[2024-06-07 06:25] LABS: Abs Immature Grans 0.02 10^3/uL (0.0-0.06); Absolute Basophil Count 0.04 10^3/uL (0.0-0.2); Absolute Eosinophil Count 0.42 10^3/uL (0.0-0.7); Absolute Lymphocyte Count 0.92 10^3/uL (1.2-3.4); Absolute Monocyte Count 1.13 10^3/uL (0.1-0.8); Absolute Neutrophil Count 4.51 10^3/uL (1.2-6.7); Basophils % 0.6 %; HCT 21.6 % (40.0-50.0); Immature Grans % 0.3 %; Lymphocytes % 13.1 %; MCH 28.7 pg (27.0-33.0); MCHC 31.5 % (32.0-36.0); MCV 91 fL (80-95); MPV 10.1 fL (8.0-11.0); Monocytes % 16.1 %; Neutrophils % 63.9 %; Platelet Count 275 10^3/uL (130-400); RBC 2.37 10^6/uL (4.36-5.78); RDW 16.2 % (11.8-14.1); RDW-SD 53.8 fL; WBC 7.04 10^3/uL (4.4-10.8)
[2024-06-07 06:40] LABS: HGB 6.8 g/dL (13.5-17.5)
[2024-06-07 06:44] LABS: Anion Gap 8.8 mmol/L (3-11); BUN 69 mg/dL (7-18); CO2 26.2 mmol/L (21.0-32.0); Chloride 102 mmol/L (98-107); Estimated GFR 15.81 (mL/min/1.73m2); Glucose 109 mg/dL (74-106); Potassium 3.8 mmol/L (3.5-5.1); Sodium 137 mmol/L (136-145)
[2024-06-07 06:48] LABS: CREATININE 3.9 mg/dL (0.70-1.30)
[2024-06-07 07:05] LABS: Hemoglobin A1C 6.4 % (<5.7)
[2024-06-07] MEDS: Acetaminophen 500 MG TAB PO (08:10)
[2024-06-07] MEDS: Sucralfate 1 GM TAB PO ×4 (08:11→20:17)
[2024-06-07] MEDS: Pantoprazole 40 MG TABCR PO ×2 (08:11→20:17)
[2024-06-07] MEDS: Furosemide 100 MG/10 ML VIAL 80 MG IVP ×2 (08:11→16:37)
[2024-06-07] MEDS: Carvedilol 25 MG TAB PO ×2 (08:11→20:17)
--- NOTE | 2024-06-07 09:22 | INITIAL_ITS ---
Date of service: 06/07/24 Time of Service: 09:22 Care Management Initial Assmt Initial Assessment Reason for Hospitalization: hematochezia Functional Status/Living Situation Patient Presentation: Anna was sitting up in bed in the ICU when CM met with him. He was open to discussion and engaged well with CM. Anna informed CM that he has been in and out of hospitals in the past few weeks and was [place] [facility] [place] [facility] for short term rehab. He plans to move from [place] where he currently lives to [place] when he is discharged from [facility]. Anna talked about the challenges of dispersing 30 years worth of belongings and memories to down size and how difficult it is to part with sentimental items associated with a loved one who is gone. He describes himself as very independent and self sufficient. He does not receive any community services nor does he need a cane or walker at baseline. Currently he is using a walker but that is because he had a toe amputated due to infection when at [facility] Anna was admitted with a lower GI bleed. His Hgb was 6.3 on admission and he was transfused with 2 units of RBCs. It is now 7.6 and is being monitored every few hours. Anna's vital signs are stable and he remains afebrile. 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) Instrumental Activities of Daily Living (ADLs): Independent Medications Medication Management: No Issues/Barriers identified Physical Functioning/Mobility Assistive Device: currently using a walker Advance Directives Advance Directives: Do you have an Advance Directive: Y 07/09/20 12:40 AD On File at [facility]: N 03/21/13 09:44 Date Asked 06/03/24 06/03/24 20:33 AD Date Reviewed COLST On File at [facility] COLST Date Scanned Code Status Resuscitation Status Full Code Portal Pt does not currently have a portal and education provided: No Insurance Coverage/Financial Issues Insurance: [employer] Medicare Replacement Care Team Visit Care Team Role Provider Type Pepe Bill Primary Care Provider NON-[facility] STAFF PHYSICIAN Monica Fisher RDN, CDCES Other Providers VEGETABLE TRIMMER Brenda Arriola Other Providers VEGETABLE TRIMMER Gennaro Goldman MD Other Providers [facility] STAFF PHYSICIAN Bela Stout Other Providers OTHER Fei Dumont RDN Other Providers VEGETABLE TRIMMER Jennifer Osorio MD Emergency Provider [facility] STAFF PHYSICIAN Rodriguez Anderson MD Admit Provider [facility] STAFF PHYSICIAN Attending Provider Discharge Potential Discharge Needs: Other (retirn to SNF) Anticipated Barriers to Discharge: None Identified Patient/Family Education Needs: Review discharge instructions, discuss Ask Me Three Transportation: Facility Transport Plan: Anticipate Asim will return to [facility] when medically cleared. He will follow up with the facility providers and plan of care and transport via facility w/c van. CM will follow and continue to assess for discharge needs. PFSH All Active Problems (Updated 06/06/24 @ 23:15 by Rodriguez Anderson MD) Bleeding hemorrhoid (Acute) Found to have a small hemorrhoid on rectal 06/06/2024. Duodenal ulcer (Acute) Diagnosed at [facility] 05/09/2024. On PPI and Carafate. Hematochezia (Acute) Acute head trauma (Acute) Fell from [facility] on 06/03/2024. Ecchymosis around the left eye and forehead. Anemia (Chronic) Septic shock (Acute) Right second toe infection 05/09/2024. Admitted to [facility]. Status post excision distal right second toe. Acute renal failure (Acute) Atrial fibrillation with RVR (Acute) Pulmonary hypertension (Acute) Diabetes mellitus type 2 in obese (Acute) CKD (chronic kidney disease) stage 3, GFR 30-59 ml/min (Acute 08/28/14) 07/2014 US R renal cyst otherwise NL Overweight (Acute 04/08/12) Medical History (Updated 06/06/24 @ 23:15 by Rodriguez Anderson MD) Cubital tunnel syndrome, bilateral Bilateral carpal tunnel syndrome Osteopenia (06/02/13) CKD (chronic kidney disease) Atrial fibrillation CHF (congestive heart failure) Acute on chronic diastolic CHF (congestive heart failure), NYHA class 1 PAD (peripheral artery disease) Acute kidney injury Bacteremia 05/09/2024 Discharge planning issues DVT prophylaxis Cellulitis Right lumbar radiculitis Spondylosis of lumbar region without myelopathy or radiculopathy HTN (hypertension) Cellulitis of right leg 05/09/2024 Right carpal tunnel syndrome Acute hyponatremia Laceration of skin of face Fell from gurney 06/03/2024 COPD (chronic obstructive pulmonary disease) Type 2 diabetes mellitus Onychodystrophy Chronic back pain Edema Physical deconditioning Subjective pulsatile tinnitus Carpal tunnel syndrome Male erectile disorder (06/02/13) 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 Umbilical herniorrhaphy b. Tonsillectomy Right knee surgery after injury Colonoscopy - IV Sedation (01/15/15) Dr Templeton Family History Grandfather Diabetes Grandmother Diabetes Social History Smoking/Tobacco Use Status: Former Tobacco Use Smoking risk assessment performed?: Yes Alcohol Intake: current Alcohol Intake frequency: a few times a week Alcohol type: beer Drug use: Rarely Substance use type: marijuana Housing: other Do you feel safe at home: Yes Do you feel safe in your relationship?: Yes SDOH(Care Management) Screening Will the Patient Participate in the Screening?: Declined to provide Do you worry about having a steady place to live?: yes Social Determinants of Health Comments(SDOH Details): unable to complete patient falling asleep Health Related Social Needs Health related social needs: housing instability, housed, with risk of homelessness(Z59.811)
--- NOTE | 2024-06-07 09:44 | W.PM.PROGNOT ---
Date of Service Date of service: 06/07/24 Time of Service: 09:44 Assessment and Plan Assessment and plan (1) Anemia: Status: Chronic Assessment and plan: Acute blood loss anemia secondary to recent gastrointestinal bleeding most likely from his duodenal ulcer which was diagnosed at [facility]. Of note his hemoglobin prior to transfer to [facility] was 12.2 g. However over the past week to 10 days hemoglobin has been stable at roughly 7 g although last night he had dropped down to as low 6.3. And posttransfusion came up to 7.2 last night and is now down to 6.8. We will continue to transfuse him to a hemoglobin over 8 g and monitor his blood count. He be kept on a PPI and Carafate for his duodenal ulcer. Surgical consultation was obtained with Dr. Shade Goldman who indicated that he would not want to immediately do endoscopy unless the patient has ongoing bleeding issues and cannot maintain his hemogram. We will do serial hemograms today and tonight and if he is stable and consider transfer back to [facility] if he continues to ooze blood either from his buttocks or has gastrointestinal bleeding and we cannot maintain his hemoglobin then he will need urgent EGD to assess stability of his duodenal ulcer. Critical care time spent interviewing and examining the patient, reviewing studies, discussing case with patient's nurse and consulting physicians was 45 minutes Qualifiers: Anemia type: iron deficiency Iron deficiency anemia type: chronic blood loss Qualified Code(s): D50.0 - Iron deficiency anemia secondary to blood loss (chronic) (2) Duodenal ulcer: Status: Acute Assessment and plan: Diagnosed at [facility] 05/09/2024. Will continue on PPI and Carafate. Plan as noted above (3) Hematochezia: Status: Acute (4) Ulcer of buttock: Status: Acute Assessment and plan: Wound care consult and offloading of pressure. (5) Acute renal failure: Status: Acute Assessment and plan: Worsening azotemia in the setting of CHF and GI bleeding. Will continue diuretics and monitor urine output and renal function Qualifiers: Acute renal failure type: unspecified Qualified Code(s): N17.9 - Acute kidney failure, unspecified (6) Atrial fibrillation with RVR: Status: Acute Assessment and plan: Xarelto is on hold in light of his acute blood loss anemia. Will monitor heart rate and rhythm And continue carvedilol. (7) CHF (congestive heart failure): Assessment and plan: Will obtain formal echocardiogram on Sunday but in the interim attempt to get records from [facility]. Qualifiers: Heart failure type: unspecified Heart failure chronicity: acute on chronic Qualified Code(s): I50.9 - Heart failure, unspecified (8) Pulmonary hypertension: Status: Acute (9) Acute head trauma: Status: Acute Assessment and plan: Closed head injury with facial contusions and superficial lacerations which have been closed. Qualifiers: Encounter type: subsequent encounter Qualified Code(s): S09.90XD - Unspecified injury of head, subsequent encounter (10) Diabetes mellitus type 2 in obese: Status: Acute (11) CKD (chronic kidney disease) stage 3, GFR 30-59 ml/min: Status: Acute Qualifiers: Chronic kidney disease stage 3 subtype: unspecified whether 3a or 3b Qualified Code(s): N18.30 - Chronic kidney disease, stage 3 unspecified (12) DVT prophylaxis: Status: Acute Assessment and plan: Not a candidate for chemoprophylaxis therefore will place the patient on SCDs Subjective Subjective Interval history since last seen: Gifty was seen this morning with Dr. Goldman, general surgeon.Gifty was admitted last night with hematochezia. He has multiple comorbidities including history of a duodenal ulcer that was diagnosed by EGD while down at [facility] earlier this summer while being treated for sepsis caused by infected right second toe which ended up being amputated. He has underlying pulmonary hypertension and congestive heart failure. He was admitted last night from [facility] because of increased dyspnea and a low hemoglobin that was diagnosed while evaluated in the emergency room 4 days ago. He has been having recurrent bleeding from his rectum. There is some question whether he had some bleeding from the skin around the rectum versus GI bleeding. His bottom was examined by myself and Dr. Goldman and he was found to have bruising of the skin around the perianal skin and buttocks from skin abrasions. Stool coming from his rectum however it looks like it is light brown rather than melena. Exam Narrative Exam Narrative: Morbidly obese gentleman who is alert and orient x 3 does not appear to be in any distress. Lungs with bilateral basilar rales no rhonchi or wheezing Heart is irregularly irregular at a controlled rate Abdomen obese soft and nontender Lower extremities 3+ edema Buttocks with excoriated skin with oozing of blood, anus with some light brown stool Objective Last Vital Signs Temp 36.7 C 06/07/24 08:37 Pulse 94 H 06/07/24 08:37 Resp 23 06/07/24 08:37 BP 110/59 L 06/07/24 08:37 Pulse Ox 97 06/07/24 08:37 Laboratory Results - last 24 hr 06/06/24 06/06/24 06/06/24 16:12 16:32 17:11 WBC 7.99 RBC 2.18 L Hgb 6.3 L* Hct 20.1 L* MCV 92 MCH 28.9 MCHC 31.3 L RDW 15.9 H Plt Count 266 MPV 10.2 Immature Gran % 0.3 Neutrophils % 66.1 Lymphocytes % 11.5 Monocytes % 16.0 Eosinophils % 5.6 Basophils % 0.5 Nucleated RBC % 0.0 Absolute Neutrophils 5.28 Absolute Lymphocytes 0.92 L Absolute Monocytes 1.28 H Absolute Eosinophils 0.45 Absolute Basophils 0.04 RBC Morphology See Below Polychromasia Present Hypochromasia 2+ PT 12.0 H INR 1.2 H VBG Lactate 0.6 Sodium 135 L Potassium 4.0 Chloride 101 Carbon Dioxide 24.0 Anion Gap 10.0 BUN 72 H Creatinine 4.2 H* Est GFR (CKD-EPI 2020) 14.47 Glucose 151 H Hemoglobin A1c Calcium 8.9 Magnesium 1.8 Total Bilirubin 0.13 L AST 10 L ALT 17 Alkaline Phosphatase 112 Troponin I < 50 NT-Pro-B Natriuret Pep 7467 H Total Protein 6.9 Albumin 1.7 L COVID-19 Source Nasopharynx SARS-CoV-2 (PCR) Negative Influenza Type A (PCR) Negative Influenza Type B (PCR) Negative RSV (PCR) Negative MRSA (TEM-PCR) ABO/Rh O Positive Antibody Screen NEGATIVE Crossmatch See Detail 06/06/24 06/06/24 06/06/24 19:25 21:43 23:20 WBC RBC Hgb 7.2 L Hct 22.4 L MCV MCH MCHC RDW Plt Count MPV Immature Gran % Neutrophils % Lymphocytes % Monocytes % Eosinophils % Basophils % Nucleated RBC % Absolute Neutrophils Absolute Lymphocytes Absolute Monocytes Absolute Eosinophils Absolute Basophils RBC Morphology Polychromasia Hypochromasia PT INR VBG Lactate Sodium Potassium Chloride Carbon Dioxide Anion Gap BUN Creatinine Est GFR (CKD-EPI 2020) Glucose Hemoglobin A1c Calcium Magnesium Total Bilirubin AST ALT Alkaline Phosphatase Troponin I < 50 NT-Pro-B Natriuret Pep Total Protein Albumin COVID-19 Source SARS-CoV-2 (PCR) Influenza Type A (PCR) Influenza Type B (PCR) RSV (PCR) MRSA (TEM-PCR) Negative ABO/Rh Antibody Screen Crossmatch 06/07/24 05:46 WBC 7.04 RBC 2.37 L Hgb 6.8 L* Hct 21.6 L MCV 91 MCH 28.7 MCHC 31.5 L RDW 16.2 H Plt Count 275 MPV 10.1 Immature Gran % 0.3 Neutrophils % 63.9 Lymphocytes % 13.1 Monocytes % 16.1 Eosinophils % 6.0 Basophils % 0.6 Nucleated RBC % 0.0 Absolute Neutrophils 4.51 Absolute Lymphocytes 0.92 L Absolute Monocytes 1.13 H Absolute Eosinophils 0.42 Absolute Basophils 0.04 RBC Morphology Polychromasia Hypochromasia PT INR VBG Lactate Sodium 137 Potassium 3.8 Chloride 102 Carbon Dioxide 26.2 Anion Gap 8.8 BUN 69 H Creatinine 3.9 H* Est GFR (CKD-EPI 2020) 15.81 Glucose 109 H Hemoglobin A1c 6.4 H Calcium 9.0 Magnesium Total Bilirubin AST ALT Alkaline Phosphatase Troponin I NT-Pro-B Natriuret Pep Total Protein Albumin COVID-19 Source SARS-CoV-2 (PCR) Influenza Type A (PCR) Influenza Type B (PCR) RSV (PCR) MRSA (TEM-PCR) ABO/Rh Antibody Screen Crossmatch Time Spent with Patient Time Spent with Patient: 35-49 minutes Time was spent: preparing to see the patient(eg.review tests), ordering medications,tests, procedures, referring, communicating with other health floor care specialist, indepentently interpreting results, counseling the patient and care coordination
--- NOTE | 2024-06-07 12:05 | PT.INIE ---
Date of service: 06/07/24 Time of Service: 11:30 PT Notes Visit Reasons: GI bleed/ Renal Failure Inpatient Physical Therapy Evaluation Date: June 07, 2024 Referring Doctor: Avi Herrera PT Orders: PT CONSULT: Extended stay weakness Precautions: Standard, Falls Patient Profile/Admitting Diagnosis: Asim is a 69 year old male with a history of CHF, atrial fibrillation on anticoagulation, hypertension, and a recent history of renal failure with new anemia, coming in with blood in his stool. PMHX: (Updated 06/06/24 @ 23:15 by Rodriguez Anderson MD) Bleeding hemorrhoid (Acute) Found to have a small hemorrhoid on rectal 06/06/2024.Duodenal ulcer (Acute) Diagnosed at [facility] 05/09/2024. On PPI and Carafate.Hematochezia (Acute) Acute head trauma (Acute) Fell from [facility] on 06/03/2024. Ecchymosis around the left eye and forehead.Anemia (Chronic) Septic shock (Acute) Right second toe infection 05/09/2024. Admitted to [facility]. Status post excision distal right second toe.Acute renal failure (Acute) Atrial fibrillation with RVR (Acute) Pulmonary hypertension (Acute) Diabetes mellitus type 2 in obese (Acute) CKD (chronic kidney disease) stage 3, GFR 30-59 ml/min (Acute 08/28/14) 07/2014 US R renal cyst otherwise NL Overweight (Acute 04/08/12) Medical History (Updated 06/06/24 @ 23:15 by Rodriguez Anderson MD) Cubital tunnel syndrome, bilateral Bilateral carpal tunnel syndrome Osteopenia (06/02/13) CKD (chronic kidney disease) Atrial fibrillation CHF (congestive heart failure) Acute on chronic diastolic CHF (congestive heart failure), NYHA class 1 PAD (peripheral artery disease) Acute kidney injury Bacteremia 05/09/2024ischarge planning issues DVT prophylaxis Cellulitis Right lumbar radiculitis Spondylosis of lumbar region without myelopathy or radiculopathy HTN (hypertension) Cellulitis of right leg 4Right carpal tunnel syndrome Acute hyponatremia Laceration of skin of face Fell from [facility] 4COPD (chronic obstructive pulmonary disease) Type 2 diabetes mellitus Onychodystrophy Chronic back pain Edema Physical deconditioning Subjective pulsatile tinnitus Carpal tunnel syndrome Male erectile disorder (06/02/13) 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 Umbilical herniorrhaphy b. TonsillectomyRight knee surgery after injury Colonoscopy - IV Sedation (01/15/15) Dr Templeton Social History/Home Situation: Prior to his admission in April he was living independently in a camper at [facility]. He reports that he would be moving into an apartment [facility] [place]. He notes that he has a son that lives in [place]. Current Functional Limitations: Decreased activity tolerance, limited walking tolerance with use of FWW. Notes he was only walking short distances at [facility] bed to chair. Equipment Owned/DME: Subjective: Asim notes he is feeling crappy. Notes increased dizziness. States he will do what he can do with PT. Objective: General Observation: catheter, telemetry, IV access Mental Status: Alert and oriented x3, very pleasant Vital Signs: Monitored via nursing ROM: Right Upper Extremity: Shoulder flexion 140 degrees, ER 20 degrees, Elbow WFL's, Wrist limited flexion/extension. Left Upper Extremity: Shoulder flexion unable to actively lift, AA 140 degrees, Elbow WFL's, Limited wrist flexion/extension Right Lower Extremity: Hip flexion 90 degrees, knee flexion 90 degrees, extension lacking 10 degrees, dorsiflexion to neutral Left Lower Extremity: Hip flexion 90 degrees, knee flexion 90 degrees, extension lacking 10 degrees, dorsiflexion to neutral Strength: Right Upper Extremity: Demonstrates good gravity resisted strength R UE Left Upper Extremity: Significant weakness L shoulder flexion/abduction/ER 3-/5. Bicep 4/5, good functional grasp Right Lower Extremity: Independent SLR, knee flexion 4/5, knee extension 4/5, DF 4-/5 Left Lower Extremity: Independent SLR, knee flexion 4/5, knee extension 4/5, DF 4-/5 Bed Mobility/Transfers: Supine-sit: Tiffany Sit-supine: Tiffany Due to increased dizziness did not stand due to blood loss. Gait: Not assessed Balance: Static Sitting: Normal Dynamic Sitting: Good Static Standing: Not assessed Dynamic Standing: Not assessed Special Tests: Mobility Limitations Standardized Measure [facility] AM-PAC 6 clicks Basic Mobility Inpatient Short Form: Raw Score: 10 CMS Score: 77% Informed Consent/Education: Patient instructed in purpose of PT consult and plan of care. Assessment: Patient is a 69 year old male referred to physical therapy services with the diagnosis of GI bleed renal failure. Patient presents with clinical signs and symptoms consistent with diagnosis, as demonstrated by the following impairment level findings: impaired joint mobility, motor function, muscle performance with altered gait and balance. Impairments are contributing to the following functional limitations: UE/LE weakness, limited activity tolerance, limited mobility, limited transfer ability Patient is assessed as a Moderate 40023 complexity based on the following: History: As above Examination: As above Presentation: Evolving Decision Making: Moderate Complexity Goals: Goals X1 week 1. Supine-Sit independent 2. Sit-Supine independent 3. Sit-Stand independent 4. Stand-Sit independent 5. Bed-Chair supervision with FWW 6. Chair-Bed supervision with FWW 7. Gait supervision WBAT with FWW 100 ft or greater 8. Stairs up/down 2-3 stairs with use of railing supervision 9. Independent with home exercise program 10. Improved standing balance Plan of Care/Treatment Plan: 1-2x/day, 7 days/week x 1 week. Plan of care has been reviewed with the CREDIT COMPLIANCE OFFICER providing the service under Physical Therapy direction. Initiate Physical Therapy intervention for strengthening, bed mobility, transfers, gait, stairs, balance training, use of assistive device. DISCHARGE RECOMMENDATIONS: Home with services PT/OT vs SNF for continued rehabilitation TREATMENT CODE/TIME: 06933, IE, 30 minutes JASBIR Leonard [facility] Please sign an return this page within 30 days if you agree with the above POC. Thank you! Physician Signature Date [facility] Disclaimer: This note was created using [email or web address] voice recognition software. It was reviewed for major content. However, there may be multiple small discrepancies and errors due to the voice recognition aspects of the software.
[2024-06-07 13:23] LABS: HCT 23.7 % (40.0-50.0); HGB 7.6 g/dL (13.5-17.5)
--- NOTE | 2024-06-07 13:33 | SCONE_ITS ---
Date of service: 06/07/24 Time of Service: 09:30 Assessment and Plan Assessment and plan (1) Ulcer of buttock: Status: Acute Assessment and plan: 69-year-old man with GI bleeding by report in the setting of known ulcer disease found within the last 4 weeks and melanotic stools in the rehab facility. He is also having concomitant oozing of blood from ulcers on his buttocks. Unclear which is bleeding more but neither are bleeding in such a fashion that he is neither unstable nor symptomatic. His vital signs are stable. His hemoglobin today is about the same as it was more than a week ago. If he is having any GI bleeding it is almost certainly from his ulcer. I recommend that he get an elective, outpatient upper endoscopy again sometime in the next 4 to 6 weeks to ensure the ulcer is healing. He does not need an upper endoscopy as an acute or urgent intervention under the current clinical circumstances. He could probably benefit from another colonoscopy considering the history, but that is also something that can be done outpatient in the elective and scheduled setting. I recommend traditional wound care for the pressure ulcers around the buttocks. The mainstay of treatment is actually prevention by offloading pressure. It seems like he is very bedbound and he may need to be more active. No surgery intervention is warranted at this time. The patient tells me he has outpatient plans for repeat EGD with [facility]. We can facilitate the outpatient EGD here at [facility] in the near future if that is helpful at all in his care. History of Present Illness Narrative: The patient is a 69-year-old man who was brought in from rehab. He was apparently at [facility] sometime over the last month or so. At that time he developed a GI bleed by report. He was reportedly found to have a large stomach ulcer. At rehab he says that they tried to remove a skin tag or something from his bottom and and that is what has started bleeding. There is a suspicion that he is having GI bleeding as well. It is unclear. His last colonoscopy was 6 or 7 years ago by report and he has had polyps in the past. Patient denies any abdominal pain PFSH All Active Problems (Updated 06/07/24 @ 20:22 by Avi Herrera MD) DVT prophylaxis (Acute) Ulcer of buttock (Acute) Bleeding hemorrhoid (Acute) Found to have a small hemorrhoid on rectal 06/06/2024. Duodenal ulcer (Acute) Diagnosed at [facility] 05/09/2024. On PPI and Carafate. Hematochezia (Acute) Acute head trauma (Acute) Fell from [facility] on 06/03/2024. Ecchymosis around the left eye and forehead. Anemia (Chronic) Septic shock (Acute) Right second toe infection 05/09/2024. Admitted to [facility]. Status post excision distal right second toe. Acute renal failure (Acute) Atrial fibrillation with RVR (Acute) Pulmonary hypertension (Acute) Diabetes mellitus type 2 in obese (Acute) CKD (chronic kidney disease) stage 3, GFR 30-59 ml/min (Acute 08/28/14) 07/2014 US R renal cyst otherwise NL Overweight (Acute 04/08/12) Medical History (Updated 06/07/24 @ 20:22 by Aiv Herrera MD) Cubital tunnel syndrome, bilateral Bilateral carpal tunnel syndrome Osteopenia (06/02/13) CKD (chronic kidney disease) Atrial fibrillation CHF (congestive heart failure) Acute on chronic diastolic CHF (congestive heart failure), NYHA class 1 PAD (peripheral artery disease) Acute kidney injury Bacteremia 05/09/2024 Discharge planning issues Cellulitis Right lumbar radiculitis Spondylosis of lumbar region without myelopathy or radiculopathy HTN (hypertension) Cellulitis of right leg 05/09/2024 Right carpal tunnel syndrome Acute hyponatremia Laceration of skin of face Fell from [facility] 06/03/2024 COPD (chronic obstructive pulmonary disease) Type 2 diabetes mellitus Onychodystrophy Chronic back pain Edema Physical deconditioning Subjective pulsatile tinnitus Carpal tunnel syndrome Male erectile disorder (06/02/13) 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 Umbilical herniorrhaphy b. Tonsillectomy Right knee surgery after injury Colonoscopy - IV Sedation (01/15/15) Dr Templeton Family History Grandfather Diabetes Grandmother Diabetes Social History Smoking/Tobacco Use Status: Former Tobacco Use Smoking risk assessment performed?: Yes Alcohol Intake: current Alcohol Intake frequency: a few times a week Alcohol type: beer Drug use: Rarely Substance use type: marijuana Housing: other Do you feel safe at home: Yes Do you feel safe in your relationship?: Yes Exam Narrative Exam Narrative: General: Nontoxic, comfortable and interactive. He does not appear pale or lethargic or in any sort of extremis. He is morbidly obese. Vital signs: Within acceptable limits (no tachycardia and no hypotension) Neuro: Alert and oriented x 3 Psych: Good mood and affect Perineum/perianal exam: He has some raw skin ulcerations on the bilateral buttocks on each side that are actually oozing a small amount of blood. They appear to be a early pressure ulcers. Results Last Vital Signs Temp 97.9 F 06/07/24 10:37 Pulse 72 06/07/24 13:02 Resp 24 06/07/24 13:02 BP 127/62 06/07/24 13:02 Pulse Ox 95 06/07/24 13:02 Labs 06/07/24 21:40 06/07/24 05:46 Labs: Laboratory Results - last 24 hr 06/06/24 06/06/24 06/06/24 16:12 16:32 17:11 WBC 7.99 RBC 2.18 L Hgb 6.3 L* Hct 20.1 L* MCV 92 MCH 28.9 MCHC 31.3 L RDW 15.9 H Plt Count 266 MPV 10.2 Immature Gran % 0.3 Neutrophils % 66.1 Lymphocytes % 11.5 Monocytes % 16.0 Eosinophils % 5.6 Basophils % 0.5 Nucleated RBC % 0.0 Absolute Neutrophils 5.28 Absolute Lymphocytes 0.92 L Absolute Monocytes 1.28 H Absolute Eosinophils 0.45 Absolute Basophils 0.04 RBC Morphology See Below Polychromasia Present Hypochromasia 2+ PT 12.0 H INR 1.2 H VBG Lactate 0.6 Sodium 135 L Potassium 4.0 Chloride 101 Carbon Dioxide 24.0 Anion Gap 10.0 BUN 72 H Creatinine 4.2 H* Est GFR (CKD-EPI 2020) 14.47 Glucose 151 H Hemoglobin A1c Calcium 8.9 Magnesium 1.8 Total Bilirubin 0.13 L AST 10 L ALT 17 Alkaline Phosphatase 112 Troponin I < 50 NT-Pro-B Natriuret Pep 7467 H Total Protein 6.9 Albumin 1.7 L COVID-19 Source Nasopharynx SARS-CoV-2 (PCR) Negative Influenza Type A (PCR) Negative Influenza Type B (PCR) Negative RSV (PCR) Negative MRSA (TEM-PCR) ABO/Rh O Positive Antibody Screen NEGATIVE Crossmatch See Detail 06/06/24 06/06/24 06/06/24 19:25 21:43 23:20 WBC RBC Hgb 7.2 L Hct 22.4 L MCV MCH MCHC RDW Plt Count MPV Immature Gran % Neutrophils % Lymphocytes % Monocytes % Eosinophils % Basophils % Nucleated RBC % Absolute Neutrophils Absolute Lymphocytes Absolute Monocytes Absolute Eosinophils Absolute Basophils RBC Morphology Polychromasia Hypochromasia PT INR VBG Lactate Sodium Potassium Chloride Carbon Dioxide Anion Gap BUN Creatinine Est GFR (CKD-EPI 2020) Glucose Hemoglobin A1c Calcium Magnesium Total Bilirubin AST ALT Alkaline Phosphatase Troponin I < 50 NT-Pro-B Natriuret Pep Total Protein Albumin COVID-19 Source SARS-CoV-2 (PCR) Influenza Type A (PCR) Influenza Type B (PCR) RSV (PCR) MRSA (TEM-PCR) Negative ABO/Rh Antibody Screen Crossmatch 06/07/24 06/07/24 06/07/24 05:46 11:00 13:00 WBC 7.04 RBC 2.37 L Hgb 6.8 L* Cancelled 7.6 L Hct 21.6 L Cancelled 23.7 L MCV 91 MCH 28.7 MCHC 31.5 L RDW 16.2 H Plt Count 275 MPV 10.1 Immature Gran % 0.3 Neutrophils % 63.9 Lymphocytes % 13.1 Monocytes % 16.1 Eosinophils % 6.0 Basophils % 0.6 Nucleated RBC % 0.0 Absolute Neutrophils 4.51 Absolute Lymphocytes 0.92 L Absolute Monocytes 1.13 H Absolute Eosinophils 0.42 Absolute Basophils 0.04 RBC Morphology Polychromasia Hypochromasia PT INR VBG Lactate Sodium 137 Potassium 3.8 Chloride 102 Carbon Dioxide 26.2 Anion Gap 8.8 BUN 69 H Creatinine 3.9 H* Est GFR (CKD-EPI 2020) 15.81 Glucose 109 H Hemoglobin A1c 6.4 H Calcium 9.0 Magnesium Total Bilirubin AST ALT Alkaline Phosphatase Troponin I NT-Pro-B Natriuret Pep Total Protein Albumin COVID-19 Source SARS-CoV-2 (PCR) Influenza Type A (PCR) Influenza Type B (PCR) RSV (PCR) MRSA (TEM-PCR) ABO/Rh Antibody Screen Crossmatch 06/07/24 06/07/24 15:00 19:00 WBC RBC Hgb Cancelled Cancelled Hct Cancelled Cancelled MCV MCH MCHC RDW Plt Count MPV Immature Gran % Neutrophils % Lymphocytes % Monocytes % Eosinophils % Basophils % Nucleated RBC % Absolute Neutrophils Absolute Lymphocytes Absolute Monocytes Absolute Eosinophils Absolute Basophils RBC Morphology Polychromasia Hypochromasia PT INR VBG Lactate Sodium Potassium Chloride Carbon Dioxide Anion Gap BUN Creatinine Est GFR (CKD-EPI 2020) Glucose Hemoglobin A1c Calcium Magnesium Total Bilirubin AST ALT Alkaline Phosphatase Troponin I NT-Pro-B Natriuret Pep Total Protein Albumin COVID-19 Source SARS-CoV-2 (PCR) Influenza Type A (PCR) Influenza Type B (PCR) RSV (PCR) MRSA (TEM-PCR) ABO/Rh Antibody Screen Crossmatch
[2024-06-07 17:07] LABS: HCT 23.1 % (40.0-50.0)
[2024-06-07 17:10] LABS: HGB 7.5 g/dL (13.5-17.5)
[2024-06-07] MEDS: Insulin Glargine 300 UNITS/3 ML PEN 15 UNITS SC (20:16)
[2024-06-07 22:00] LABS: HCT 23.9 % (40.0-50.0); HGB 7.6 g/dL (13.5-17.5)
[2024-06-08] VITALS (50 sets, daily range): BP systolic 94–150; BP diastolic 47–84; PULSE 65–136; RESP 0–42; TEMP 36.6–37; O2SAT 91–100
[2024-06-08] MEDS: Normal Saline Flush 10 ML SYR IVP ×5 (00:49→22:23)
[2024-06-08] MEDS: Albuterol 2.5 MG/3 ML INH SOLN VIAL UPD ×3 (03:17→20:37)
[2024-06-08] MEDS: Furosemide 100 MG/10 ML VIAL 80 MG IVP ×3 (05:36→20:17)
[2024-06-08 06:46] LABS: Abs Immature Grans 0.03 10^3/uL (0.0-0.06); Absolute Basophil Count 0.05 10^3/uL (0.0-0.2); Absolute Eosinophil Count 0.42 10^3/uL (0.0-0.7); Absolute Lymphocyte Count 0.93 10^3/uL (1.2-3.4); Absolute Monocyte Count 1.13 10^3/uL (0.1-0.8); Absolute Neutrophil Count 5.18 10^3/uL (1.2-6.7); Basophils % 0.6 %; Eosinophils % 5.4 %; HCT 24.9 % (40.0-50.0); Immature Grans % 0.4 %; MCH 28.9 pg (27.0-33.0); MCHC 32.1 % (32.0-36.0); MCV 90 fL (80-95); MPV 10.2 fL (8.0-11.0); Monocytes % 14.6 %; Platelet Count 299 10^3/uL (130-400); RBC 2.77 10^6/uL (4.36-5.78); RDW 16.3 % (11.8-14.1); RDW-SD 54.1 fL; WBC 7.74 10^3/uL (4.4-10.8)
[2024-06-08 07:05] LABS: ALT 14 U/L (16-63); AST 19 U/L (15-37); Albumin 1.7 g/dL (3.4-5.0); Alkaline Phosphatase 97 U/L (46-116); Anion Gap 8.3 mmol/L (3-11); BUN 67 mg/dL (7-18); Bilirubin, Total 0.31 mg/dL (0.2-1.0); CO2 27.7 mmol/L (21.0-32.0); CREATININE 3.4 mg/dL (0.70-1.30); Calcium 9.1 mg/dL (8.5-10.1); Chloride 101 mmol/L (98-107); Estimated GFR 18.64 (mL/min/1.73m2); Glucose 113 mg/dL (74-106); Potassium 3.7 mmol/L (3.5-5.1); Sodium 137 mmol/L (136-145); Total Protein 6.9 g/dL (6.4-8.2)
--- NOTE | 2024-06-08 08:02 | W.PM.PROGNOT ---
Date of Service Date of service: 06/08/24 Time of Service: 08:45 Assessment and Plan Assessment and plan (1) Duodenal ulcer: Status: Acute Assessment and plan: 69-year-old man with slow GI bleeding in the setting of a duodenal ulcer found within the last 4 weeks and having a significant amount of other chronic as well as acute medical issues going on. From a rehab perspective, this is a challenging case considering he weighs 360 pounds and has a BMI of 45. He has some pressure ulcers on his buttocks that have been oozing some blood as well in addition to the GI bleeding. At this point we can be pretty certain any ongoing blood loss is probably from his ongoing ulcer. It is not bleeding fast or bad enough to cause hemodynamic instability. Considering his body size, I think his PPI could be increased to 80 twice daily. At this point I do not recommend repeating an EGD acutely. I do not think it is going to offer any significant benefit and we already have the information we need. He should get an outpatient EGD in the next 2 to 4 weeks to document that the ulcer is healing but it is too soon to do that now. There is probably very little benefit to having another screening colonoscopy despite his history of polyps unless he really enhances his recovery from his current condition and has a good life expectancy for the next 5-10 years. I defer to him and his PCP to have this discussion and decide on it. He does not need a colonoscopy from a GI bleeding standpoint because we have a known source (duodenal ulcer). Overall: Surgery will follow along in the periphery and if he remains hospitalized for the next few weeks, we can do his follow-up EGD here. If he meets discharge criteria, then he should schedule his EGD outpatient here 2 to 4 weeks from now or he can continue his follow-up with [facility] which I understand is currently scheduled. If he continues to require more blood transfusions over the next couple of days, we can repeat an EGD to see if there is a slow bleeding vessel that can be clipped potentially. Subjective Subjective Interval history since last seen: Hemoglobin stable - 8 this morning. That is higher than it has been in the last 10 days. Unfortunately patient reports he still feels lightheaded this morning. Denies abdominal discomfort Exam Narrative Exam Narrative: Stable blood pressure, rate?controlled atrial fibrillation heart rate 90?110. Objective Last Vital Signs Temp 98.6 F 08/25/24 00:49 Pulse 95 H 06/08/24 03:22 Resp 26 H 06/08/24 03:22 BP 120/61 06/08/24 00:49 Pulse Ox 100 06/08/24 03:22 Laboratory Results - last 24 hr 06/06/24 06/07/24 06/07/24 16:12 11:00 13:00 WBC RBC Hgb Cancelled 7.6 L Hct Cancelled 23.7 L MCV MCH MCHC RDW Plt Count MPV Immature Gran % Neutrophils % Lymphocytes % Monocytes % Eosinophils % Basophils % Nucleated RBC % Absolute Neutrophils Absolute Lymphocytes Absolute Monocytes Absolute Eosinophils Absolute Basophils Sodium Potassium Chloride Carbon Dioxide Anion Gap BUN Creatinine Est GFR (CKD-EPI 2020) Glucose Calcium Total Bilirubin AST ALT Alkaline Phosphatase Total Protein Albumin ABO/Rh O Positive Antibody Screen NEGATIVE Crossmatch See Detail 06/07/24 06/07/24 06/07/24 15:00 16:48 19:00 WBC RBC Hgb Cancelled 7.5 L Cancelled Hct Cancelled 23.1 L Cancelled MCV MCH MCHC RDW Plt Count MPV Immature Gran % Neutrophils % Lymphocytes % Monocytes % Eosinophils % Basophils % Nucleated RBC % Absolute Neutrophils Absolute Lymphocytes Absolute Monocytes Absolute Eosinophils Absolute Basophils Sodium Potassium Chloride Carbon Dioxide Anion Gap BUN Creatinine Est GFR (CKD-EPI 2020) Glucose Calcium Total Bilirubin AST ALT Alkaline Phosphatase Total Protein Albumin ABO/Rh Antibody Screen Crossmatch 06/07/24 06/08/24 21:40 05:49 WBC 7.74 RBC 2.77 L Hgb 7.6 L 8.0 L Hct 23.9 L 24.9 L MCV 90 MCH 28.9 MCHC 32.1 RDW 16.3 H Plt Count 299 MPV 10.2 Immature Gran % 0.4 Neutrophils % 67.0 Lymphocytes % 12.0 Monocytes % 14.6 Eosinophils % 5.4 Basophils % 0.6 Nucleated RBC % 0.0 Absolute Neutrophils 5.18 Absolute Lymphocytes 0.93 L Absolute Monocytes 1.13 H Absolute Eosinophils 0.42 Absolute Basophils 0.05 Sodium 137 Potassium 3.7 Chloride 101 Carbon Dioxide 27.7 Anion Gap 8.3 BUN 67 H Creatinine 3.4 H Est GFR (CKD-EPI 2020) 18.64 Glucose 113 H Calcium 9.1 Total Bilirubin 0.31 AST 19 ALT 14 L Alkaline Phosphatase 97 Total Protein 6.9 Albumin 1.7 L ABO/Rh Antibody Screen Crossmatch Time Spent with Patient Time Spent with Patient: <25 minutes Time was spent: preparing to see the patient(eg.review tests), obtaining and/or reviewing separately otained hiistory, ordering medications,tests, procedures, referring, communicating with other health palliative care nurse, indepentently interpreting results, counseling the patient, care coordination and other
[2024-06-08] MEDS: Sucralfate 1 GM TAB PO ×4 (08:05→20:14)
[2024-06-08] MEDS: Carvedilol 25 MG TAB PO ×2 (08:05→20:15)
[2024-06-08] MEDS: Pantoprazole 40 MG TABCR PO ×2 (08:05→20:14)
--- NOTE | 2024-06-08 10:31 | PGE_ITS ---
Date of Service Date of service: 06/08/24 Time of Service: 10:31 Assessment and Plan Assessment and plan (1) Anemia: Status: Chronic Assessment and plan: Acute blood loss anemia secondary to duodenal ulcer also complicated by local skin bleeding from skin ulcerations over his buttocks. Continued treatment with Carafate and Protonix along with local wound care. Monitor H&H and transfuse as needed. We will work on his nutritional status by adding protein supplements and zinc a multivitamin. Check vitamin B-12 and folate levels. Critical care time spent interviewing and examining the patient, reviewing studies, discussing case with patient's nurse and consulting physicians was 30 minutes Qualifiers: Anemia type: iron deficiency Iron deficiency anemia type: chronic blood loss Qualified Code(s): D50.0 - Iron deficiency anemia secondary to blood loss (chronic) (2) Duodenal ulcer: Status: Acute Assessment and plan: Diagnosed at [facility] 05/09/2024. Will continue on PPI and Carafate. Plan as noted above (3) Hematochezia: Status: Acute (4) CHF (congestive heart failure): Assessment and plan: We did not get the records from [facility]. We will proceed with formal echocardiogram in the morning. Continue aggressive diuresis monitoring daily weights intake output and daily labs. Qualifiers: Heart failure type: unspecified Heart failure chronicity: acute on chronic Qualified Code(s): I50.9 - Heart failure, unspecified (5) Pulmonary hypertension: Status: Acute Assessment and plan: I did not get a tricuspid regurgitant velocity on bedside echo today due to problems with body habitus and positioning of the patient. We will get a formal echocardiogram in the morning. I suspect that he has obstructive sleep apnea. He told me that in the past he been recommended to wear CPAP mask but he refuses to wear 1. (6) Ulcer of buttock: Status: Acute Assessment and plan: Wound care consult and offloading of pressure. (7) Acute renal failure: Status: Acute Assessment and plan: improved creatinine to 3.4 w/ diuresis; continue to monitor UO and labs Qualifiers: Acute renal failure type: unspecified Qualified Code(s): N17.9 - Acute kidney failure, unspecified (8) Atrial fibrillation with RVR: Status: Acute Assessment and plan: Xarelto is on hold in light of his acute blood loss anemia. Will monitor heart rate and rhythm And continue carvedilol. (9) Acute head trauma: Status: Acute Assessment and plan: Closed head injury with facial contusions and superficial lacerations which have been closed. Qualifiers: Encounter type: subsequent encounter Qualified Code(s): S09.90XD - Unspecified injury of head, subsequent encounter (10) Diabetes mellitus type 2 in obese: Status: Acute Assessment and plan: Continue basal bolus insulin glucose levels are running in the 110s to 120s. glycohemoglobin A1c is controlled at 6.4% however, I am not sure this is accurate d/t his anemia. Will check fructosamine level which may be more accurate in anemia (11) CKD (chronic kidney disease) stage 3, GFR 30-59 ml/min: Status: Chronic Qualifiers: Chronic kidney disease stage 3 subtype: unspecified whether 3a or 3b Qualified Code(s): N18.30 - Chronic kidney disease, stage 3 unspecified (12) DVT prophylaxis: Status: Acute Assessment and plan: Not a candidate for chemoprophylaxis therefore will place the patient on SCDs Subjective Subjective Interval history since last seen: Gifty has had some increased shortness of breath today after being transfused that third unit of packed red cells last night. He still having some maroon- colored stools and some oozing from his buttocks. No abdominal pain nausea or vomiting hemoglobin is 8 g this morning after the third unit of packed red cells. Will recheck his H&H this evening and then again in the morning. Continue treatment with his Protonix and Carafate. Per my discussion with Dr. Goldman there is no plans for EGD unless he is briskly bleeding. Exam Narrative Exam Narrative: Still remains on room air in spite of the increased dyspnea. He does not appear to be in any acute respiratory distress is lying in bed semisolid position de nies any pain Lungs diffuse wheezes bibasilar rales Heart irregularly irregular distant heart tones Abdomen obese soft nontender Lower extremities 3+ pitting edema right second digit is bandaged yesterday when I examined and appeared to be clean and intact suture. Pedal pulses are strong Objective Last Vital Signs Temp 36.6 C 06/08/24 08:45 Pulse 74 06/08/24 08:31 Resp 26 H 06/08/24 08:31 BP 137/66 06/08/24 08:31 Pulse Ox 94 06/08/24 08:31 Laboratory Results - last 24 hr 06/06/24 06/07/24 06/07/24 16:12 11:00 13:00 WBC RBC Hgb Cancelled 7.6 L Hct Cancelled 23.7 L MCV MCH MCHC RDW Plt Count MPV Immature Gran % Neutrophils % Lymphocytes % Monocytes % Eosinophils % Basophils % Nucleated RBC % Absolute Neutrophils Absolute Lymphocytes Absolute Monocytes Absolute Eosinophils Absolute Basophils Sodium Potassium Chloride Carbon Dioxide Anion Gap BUN Creatinine Est GFR (CKD-EPI 2020) Glucose Calcium Total Bilirubin AST ALT Alkaline Phosphatase Total Protein Albumin ABO/Rh O Positive Antibody Screen NEGATIVE Crossmatch See Detail 06/07/24 06/07/24 06/07/24 15:00 16:48 19:00 WBC RBC Hgb Cancelled 7.5 L Cancelled Hct Cancelled 23.1 L Cancelled MCV MCH MCHC RDW Plt Count MPV Immature Gran % Neutrophils % Lymphocytes % Monocytes % Eosinophils % Basophils % Nucleated RBC % Absolute Neutrophils Absolute Lymphocytes Absolute Monocytes Absolute Eosinophils Absolute Basophils Sodium Potassium Chloride Carbon Dioxide Anion Gap BUN Creatinine Est GFR (CKD-EPI 2020) Glucose Calcium Total Bilirubin AST ALT Alkaline Phosphatase Total Protein Albumin ABO/Rh Antibody Screen Crossmatch 06/07/24 06/08/24 21:40 05:49 WBC 7.74 RBC 2.77 L Hgb 7.6 L 8.0 L Hct 23.9 L 24.9 L MCV 90 MCH 28.9 MCHC 32.1 RDW 16.3 H Plt Count 299 MPV 10.2 Immature Gran % 0.4 Neutrophils % 67.0 Lymphocytes % 12.0 Monocytes % 14.6 Eosinophils % 5.4 Basophils % 0.6 Nucleated RBC % 0.0 Absolute Neutrophils 5.18 Absolute Lymphocytes 0.93 L Absolute Monocytes 1.13 H Absolute Eosinophils 0.42 Absolute Basophils 0.05 Sodium 137 Potassium 3.7 Chloride 101 Carbon Dioxide 27.7 Anion Gap 8.3 BUN 67 H Creatinine 3.4 H Est GFR (CKD-EPI 2020) 18.64 Glucose 113 H Calcium 9.1 Total Bilirubin 0.31 AST 19 ALT 14 L Alkaline Phosphatase 97 Total Protein 6.9 Albumin 1.7 L ABO/Rh Antibody Screen Crossmatch Reviewed Pertinent PMH: Yes Objective Narrative Objective Narrative: Bedside POCUS exam was performed lung exam shows A-line pattern anteriorly however at the bases in the inferolateral regions he has some B-lines but no infiltrates no air bronchograms and no effusion Bedside echo shows normal LV function he has mild to moderate RV dilatation RV size appears to be equal to LV size although the RV function appears to be grossly normal TAPSE however there is significant RVH. IVC is dilated and not collapsible with inspiration. Time Spent with Patient Time Spent with Patient: 25-34 minutes Time was spent: preparing to see the patient(eg.review tests), ordering medications,tests, procedures, referring, communicating with other health furnace caretaker, indepentently interpreting results, counseling the patient and care coordination
[2024-06-08] MEDS: Zinc Sulfate 220 MG TAB PO (11:51)
[2024-06-08] MEDS: Prenatal Multivitamin w/CA,FE TAB 1 TAB PO (11:52)
--- NOTE | 2024-06-08 11:54 | W.POCUS ---
Pocus Exam Limited Thoracic Lung Exam DATE OF EXAM: 06/08/24 TIME OF EXAM: 10:55 PROVIDER THAT PERFORMED THE STUDY: Avi Herrera IS THIS A REPEAT EXAM DURING THIS ENCOUNTER: No REASON FOR EXAM: Hypoxia and Shortness ofBreath VISUALIZED STRUCTURES: right anterior, left anterior, right lateral, left lateral, right posterior, left posterior, right subcostal and left subcostal PERTINENT FINDINGS/IMPRESSION: B-lines/left side thoracis location: lateral (inferolateral) and B-lines/right side thoracis location: lateral (inferolateral); no pleural effusion on the left and no pleural effusion on the right
--- NOTE | 2024-06-08 11:57 | W.POCUS ---
Pocus Exam Limited Cardiac Exam DATE OF EXAM: 06/08/24 TIME OF EXAM: 11:07 PROVIDER THAT PERFORMED THE STUDY: Avi Herrera IS THIS A REPEAT EXAM DURING THIS ENCOUNTER: no REASON FOR EXAM: Congestive heart failure and Dyspnea VISUALIZED STRUCTURES: four chambers, aortic valve, mitral valve, Interventricular septum and IVC VIEW OBTAINED: Apical 4-Chamber, Parasternal long-axis (poor images d/t body habitus, unable to position paitent) and Subxiphoid PERTINENT FINDINGS/IMPRESSION: Plethoric IVC and RV dilation (severe RVH); no IVC inspiratory collapsability, No LV dysfunction, No pericardial effusion and No RV dysfunction Exam complete
--- NOTE | 2024-06-08 12:37 | PT.INNT ---
PT Notes Visit Reasons: GI bleed/ Renal Failure Pt not able to participate with session due to pt not feeling well, pt having low HCT, HGB, RBC, feeling dizzy even with bed mobility(rolling), PT will resume tomorrow if pt condition improves.
[2024-06-08] MEDS: Insulin Aspart 300 UNITS/3 ML PEN SC (12:38)
[2024-06-08] MEDS: Protein Nutritional Supplement 16 GM 1 OUNCE PACKET PO ×2 (13:38→20:15)
[2024-06-08 17:54] LABS: HCT 26.2 % (40.0-50.0); HGB 8.3 g/dL (13.5-17.5)
[2024-06-08] MEDS: dilTIAZem 25 MG/5 ML VIAL 20 MG IVP (19:14)
[2024-06-08] MEDS: Insulin Glargine 300 UNITS/3 ML PEN 15 UNITS SC (20:21)
[2024-06-08] MEDS: Metoprolol 5 MG/5 ML VIAL IVP (22:23)
[2024-06-09] VITALS (23 sets, daily range): BP systolic 97–136; BP diastolic 52–76; PULSE 79–114; RESP 5–38; TEMP 37–37.9; O2SAT 91–124
[2024-06-09] MEDS: Miconazole 2% Topical Powder 85 GM BTL (01:02)
[2024-06-09] MEDS: Normal Saline Flush 10 ML SYR IVP ×3 (05:50→19:35)
[2024-06-09] MEDS: Furosemide 100 MG/10 ML VIAL 80 MG IVP ×3 (05:51→21:45)
[2024-06-09 06:03] LABS: Abs Immature Grans 0.02 10^3/uL (0.0-0.06); Absolute Basophil Count 0.04 10^3/uL (0.0-0.2); Absolute Eosinophil Count 0.43 10^3/uL (0.0-0.7); Absolute Lymphocyte Count 1.21 10^3/uL (1.2-3.4); Absolute Neutrophil Count 4.84 10^3/uL (1.2-6.7); Basophils % 0.5 %; Eosinophils % 5.4 %; HCT 25.8 % (40.0-50.0); HGB 8.1 g/dL (13.5-17.5); Immature Grans % 0.3 %; Lymphocytes % 15.2 %; MCH 28.5 pg (27.0-33.0); MCHC 31.4 % (32.0-36.0); MCV 91 fL (80-95); MPV 10.1 fL (8.0-11.0); Monocytes % 17.6 %; Platelet Count 318 10^3/uL (130-400); RBC 2.84 10^6/uL (4.36-5.78); RDW-SD 53.2 fL; WBC 7.94 10^3/uL (4.4-10.8)
[2024-06-09 06:18] LABS: Magnesium 1.5 mg/dL (1.8-2.4)
[2024-06-09 06:21] LABS: PHOSPHORUS 5.2 mg/dL (2.6-4.7)
[2024-06-09 06:31] LABS: Anion Gap 6.5 mmol/L (3-11); BUN 73 mg/dL (7-18); CO2 30.5 mmol/L (21.0-32.0); CREATININE 3.4 mg/dL (0.70-1.30); Calcium 9.1 mg/dL (8.5-10.1); Chloride 102 mmol/L (98-107); Estimated GFR 18.64 (mL/min/1.73m2); Glucose 103 mg/dL (74-106); Potassium 3.7 mmol/L (3.5-5.1); Sodium 139 mmol/L (136-145)
[2024-06-09 06:47] LABS: Vitamin B12 574 pg/mL (193-986)
--- NOTE | 2024-06-09 08:40 | WOUNDCONS_ITS ---
Date of service: 06/09/24 Time of Service: 08:40 Wound Initial Evaluation Narrative Narrative: Patient is a morbidly obese 69 year old male admitted on 06/07/24 with GI bleed. The patient has PMH of type 2 diabetes, COPD, CHF, CKD and PAD. 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 The right foot is wrapped with Kerlix with sutures still intact. (This telegraphic typewriter installer did not photo the amputated toe and suggests to continue to follow the surgical recommendations). While at [facility] the patient was diagnosed with a duodenal ulcer and developed acute renal failure. The patient was transferred to a SNF and was receiving rehab when found to have heme positive stool. The patient reports that while he was participating in rehab at the SNF he was weak and easily became SOB. The patient has a black surgical shoe in the bag with his personal belongings. The patient signed a photo consent and agreed to the wound consult. This telegraphic typewriter installer reviewed the H&P, recent VS, allergies and labs. The patient BMI is 45. The A1c drawn in May 2024 is 6.4%. Wound Buttocks: Wound Type: Pressure Ulcer Pressure Ulcer Stage: Other (Stage 1 and Stage 2 and Deep Tissue Pressure Injury) Wound Drainage Amount: Minimal Wound Drainage Description: Bloody Additional Other Comments: Miconazole powder applied to entire wound area with request for Hal cream to be ordered Skin folds/Pannus/Axillary: Wound Type: Other (Rash and maceration) Additional Other Comments: Miconazole powder applied under pannus, bilateral axillary and breasts Wound Summary Wound Summary: In the 5 photos shown below beginning with- Photo 1: Stage 1 and stage 2 pressure injuries and purplish deep tissue injury on buttocks while left lateral side lying. Patient reports that the mole/nodule oozing blood has been there for a very long time. Photo 2: Right lateral side lying with the same mole/nodule on the left buttock oozing blood. Photo 3: Perineal area with excoriation on bilateral inner thighs. Photo 4:Red rash under pannus with fungal odor. Photo 5: Red rash and excoriation with fungal odor under left axillary and breast. Photo Photo: Treatment/Dressing Change Topicals/Ointments: Medicated Ointment (Hal's cream has vitamin D, zinc and and antifungal) and Other (Miconazole powder) Nutrition Education Reviewed Nutrition Education: Yes Note: Discussed with patient for need to increase protein intake for optimal wound healing. Also discussed guidelines for carbohydrate diet and decreasing A1c. Recomendation Recomendation:: BID and PRN: Wash patient with soap and water or use cleaning wipes. Pat dry all damp areas. Apply Miconazole powder to skin folds and perineal area Apply thin film of Hal's cream to bilateral buttocks. When rash diminishes from buttocks Mepilex may be applied for protection. Please assist patient with offloading and repositioning every 2 hours and as needed. Physcian/Nurse Practioner Notified: Yes Treatment Time Time Total Time Spent with Patient: 60 Patient Will be Seen Weekly Treatment: 3x/wk For: For:: 1 week
[2024-06-09] MEDS: Zinc Sulfate 220 MG TAB PO (08:58)
[2024-06-09] MEDS: Sucralfate 1 GM TAB PO ×4 (08:58→21:42)
[2024-06-09] MEDS: Pantoprazole 40 MG TABCR PO ×2 (08:58→19:34)
[2024-06-09] MEDS: Prenatal Multivitamin w/CA,FE TAB 1 TAB PO (08:59)
[2024-06-09] MEDS: Carvedilol 25 MG TAB PO ×2 (08:59→19:34)
[2024-06-09] MEDS: Acetaminophen 500 MG TAB PO ×2 (09:00→21:42)
--- NOTE | 2024-06-09 09:20 | PDOC.CMPRO ---
Date of service: 06/09/24 Time of Service: 09:21 Care Management Progress Note Progress Note Text Progress Note Text: Anna was sitting up in bed when CM met with him. He was pleasant and agreeable to conversatiion. Pt was also in the room ands was about to begin working with Anna. The therapist asked about the discharge plan and CM responded that he would be returning to [facility] to complete his rehab. Anna stated that he did not want to return to [facility], that he wanted to go home. CM asked if he felt he was ready from a physical therapy point of view and he stated that he knows he is not. He expressed a preference for remaining at [facility]. CM explained that it would not be possible at this time. While he is not medically ready yet, when he is ready, he will need to return to [facility]. Anna verbalized understanding. Anna has been downgraded to Med-Surg status but remains in the ICU due to bed availability. Clinically he is improving and feels better. Anna's blood pressure is on the lower side with SBPs in the 100-120 range and he is diuresing well. Discharge Potential Discharge Needs: PCP F/U Appt Anticipated Barriers to Discharge: Medical Status Patient/Family Education Needs: Review discharge instructions, discuss Ask Me Three Transportation: Facility Transport Plan: Anticipate Asim will return to [facility] when medically cleared. He will follow up with the facility providers and plan of care and transport via facility w/c van. CM will follow and continue to assess for discharge needs. SDOH(Care Management) Screening Will the Patient Participate in the Screening?: Declined to provide Do you worry about having a steady place to live?: yes Social Determinants of Health Comments(SDOH Details): unable to complete patient falling asleep Health Related Social Needs Health related social needs: housing instability, housed, with risk of homelessness(Z59.811)
--- NOTE | 2024-06-09 10:40 | W.PM.PROGNOT ---
Date of Service Date of service: 06/09/24 Time of Service: 10:40 Assessment and Plan Assessment and plan (1) Anemia: Status: Chronic Assessment and plan: -Acute blood loss anemia secondary to duodenal ulcer also complicated by local skin bleeding from skin ulcerations over his buttocks. -Continued treatment with Carafate and Protonix along with local wound care. -Hb 6.3 on admission, s/p total of 3U PRBCs -Monitor H&H and transfuse as needed, last Hb AM 06/09 8.1 Qualifiers: Anemia type: iron deficiency Iron deficiency anemia type: chronic blood loss Qualified Code(s): D50.0 - Iron deficiency anemia secondary to blood loss (chronic) (2) Duodenal ulcer: Status: Acute Assessment and plan: -Diagnosed at [facility] 05/09/2024. -continue on PPI and Carafate (3) Hematochezia: Status: Acute (4) CHF (congestive heart failure): Assessment and plan: -[place] working [place] [facility] [place]u echocardiogram to be done 06/09 -net negative 3.8L on 06/08, total net negative 9.6L since admission -Continue lasix 80mg TID, strict I/O's Qualifiers: Heart failure type: unspecified Heart failure chronicity: acute on chronic Qualified Code(s): I50.9 - Heart failure, unspecified (5) Pulmonary hypertension: Status: Acute Assessment and plan: -previous physician could not get tricuspid regurgitant velocity on bedside echo body habitus and positioning -f/u formal TTE -suspect that he has obstructive sleep apnea; patient stated he has been recommended to wear CPAP mask but he refuses to wear one (6) Ulcer of buttock: Status: Acute Assessment and plan: -Wound care consult and offloading of pressure. (7) Acute renal failure: Status: Acute Assessment and plan: -improved creatinine to 3.4 w/ diuresis; continue to monitor UO and labs Qualifiers: Acute renal failure type: unspecified Qualified Code(s): N17.9 - Acute kidney failure, unspecified (8) Atrial fibrillation with RVR: Status: Acute Assessment and plan: -Xarelto is on hold in light of his acute blood loss anemia. -Will monitor heart rate and rhythm And continue carvedilol. (9) Acute head trauma: Status: Acute Assessment and plan: -Closed head injury with facial contusions and superficial lacerations which have been closed. Qualifiers: Encounter type: subsequent encounter Qualified Code(s): S09.90XD - Unspecified injury of head, subsequent encounter (10) Diabetes mellitus type 2 in obese: Status: Acute Assessment and plan: -Continue basal bolus insulin glucose levels are running in the 110s to 120s. glycohemoglobin A1c is controlled at 6.4% however, I am not sure this is accurate d/t his anemia. -Will check fructosamine level which may be more accurate in anemia (11) CKD (chronic kidney disease) stage 3, GFR 30-59 ml/min: Status: Chronic Qualifiers: Chronic kidney disease stage 3 subtype: unspecified whether 3a or 3b Qualified Code(s): N18.30 - Chronic kidney disease, stage 3 unspecified (12) DVT prophylaxis: Status: Acute Assessment and plan: Not a candidate for chemoprophylaxis therefore will place the patient on SCDs Subjective Subjective Interval history since last seen: Patient states that he is doing well today and that he has no complaints or concerns at this time. Exam Narrative Exam Narrative: chronically ill appearing older gentleman laying in bed in no acute distress, AOx4, heart RRR, lungs diffuse mild course breath sounds throughout, abdomen obese, soft, non-tender, non-distended, +3 bilateral pitting edema and signs of chronic edema to LE with bandage over right second toe Objective Last Vital Signs Temp 99.0 F 06/09/24 04:15 Pulse 96 H 06/09/24 02:01 Resp 17 06/09/24 02:01 BP 133/70 06/09/24 02:01 Pulse Ox 97 06/09/24 09:09 Laboratory Results - last 24 hr 06/08/24 06/09/24 17:50 05:44 WBC 7.94 RBC 2.84 L Hgb 8.3 L 8.1 L Hct 26.2 L 25.8 L MCV 91 MCH 28.5 MCHC 31.4 L RDW 16.0 H Plt Count 318 MPV 10.1 Immature Gran % 0.3 Neutrophils % 61.0 Lymphocytes % 15.2 Monocytes % 17.6 Eosinophils % 5.4 Basophils % 0.5 Nucleated RBC % 0.0 Absolute Neutrophils 4.84 Absolute Lymphocytes 1.21 Absolute Monocytes 1.40 H Absolute Eosinophils 0.43 Absolute Basophils 0.04 Sodium 139 Potassium 3.7 Chloride 102 Carbon Dioxide 30.5 Anion Gap 6.5 BUN 73 H Creatinine 3.4 H Est GFR (CKD-EPI 2020) 18.64 Glucose 103 Calcium 9.1 Phosphorus 5.2 H Magnesium 1.5 L Vitamin B12 574 Folate 11.0 Time Spent with Patient Time Spent with Patient: >50 minutes Time was spent: preparing to see the patient(eg.review tests), obtaining and/or reviewing separately otained hiistory, ordering medications,tests, procedures, referring, communicating with other health home care physical therapist, indepentently interpreting results, counseling the patient and care coordination
[2024-06-09] MEDS: MAGNESIUM SULFATE 2 GM/50 ML BAG IVINF (10:41)
[2024-06-09] MEDS: Protein Nutritional Supplement 16 GM 1 OUNCE PACKET PO ×3 (10:42→19:33)
[2024-06-09] MEDS: POTASSIUM CHLORIDE 10 MEQ/100 ML BAG 100 MEQ IVINF ×2 (10:42→12:15)
[2024-06-09] MEDS: Albuterol 2.5 MG/3 ML INH SOLN VIAL UPD ×2 (11:53→19:40)
--- NOTE | 2024-06-09 14:12 | PT.INTREAT ---
PT Notes Visit Reasons: GI bleed/ Renal Failure Inpatient Physical Therapy Treatment Note Date: 06/09/2024 Referring Doctor: Avi Herrera MD PT Orders: PT CONSULT: Extended stay weakness Precautions: Falls. Skin breakdown. Activity as tolerated. Subjective: Tired. Verbalized increasing weakness since he went back to SNF for about a month now. Objective: General Observation: catheter, telemetry, IV access Mental Status: Alert and oriented x3, very pleasant Vital Signs: Monitored via nursing Bed Mobility/Transfers: Roll to R moderate assist of 2 R S/L to supine minimal assist Rool to L moderate assist of 2 L S/L to supine minimal assist Supine-sit: minimal assist Sit-supine: moderate sanjeev of 2 Gait: Unable to test. Patient expressed concern over standing today. Willing to try and see how he does tomorrow. THERA EX: Guided patietn with safe and correct performance of following seated exercises: LAQs x 10 Quads sets 5 sh x 10 Gluteak sets 5 sh x 10 Balance: Static Sitting: Normal Dynamic Sitting: Good Static Standing: Unable Dynamic Standing: Unable Assessment: Dyspneic with edge of bed activties with highest RR of mid 40s cpm that went down to low 30s with rest and resumption of supine. Required adequate rest to minimize SOB and fatigue. HR fluctuated between 90s through 140s throughout session. Required assist of 2 for sit to supine. Plan of Care/Treatment Plan: 1-2x/day, 7 days/week x 1 week. Plan of care has been reviewed with the D[employer] ST[employer] BLOWER FEEDER providing the service under Physical Therapy direction. Initiate Physical Therapy intervention for strengthening, bed mobility, transfers, gait, stairs, balance training, use of assistive device. DISCHARGE RECOMMENDATIONS: Patient will benefit from [facility] facility placement for continued skilled physical therapy services in order to progress mobility level, strength, and balance in preparation for a safe discharge to home. TREATMENT CODE/TIME: Session 1-- 83123 x 20 minutes for 1 unit (11:38-11:58). Session 2--[id number] x 38 minutes for 3 units (14:12-14:50).
[2024-06-09] MEDS: Insulin Aspart 300 UNITS/3 ML PEN SC (16:59)
[2024-06-09 18:52] LABS: Homocysteine 19.9 umol/L (5.0-13.9)
[2024-06-09] MEDS: Insulin Glargine 300 UNITS/3 ML PEN 15 UNITS SC (19:34)
[2024-06-09] MEDS: Metoprolol 5 MG/5 ML VIAL IVP (21:46)
[2024-06-10] VITALS (18 sets, daily range): BP systolic 109–140; BP diastolic 60–76; PULSE 79–123; RESP 5–40; TEMP 37; O2SAT 89–100
[2024-06-10] MEDS: Normal Saline Flush 10 ML SYR IVP ×2 (05:25→23:05)
[2024-06-10] MEDS: Albuterol 2.5 MG/3 ML INH SOLN VIAL UPD ×4 (05:56→20:04)
[2024-06-10] MEDS: Furosemide 100 MG/10 ML VIAL 80 MG IVP ×3 (06:05→23:07)
[2024-06-10 06:36] LABS: HCT 24.8 % (40.0-50.0); HGB 7.9 g/dL (13.5-17.5); MCH 28.6 pg (27.0-33.0); MCHC 31.9 % (32.0-36.0); MCV 90 fL (80-95); MPV 10.1 fL (8.0-11.0); Platelet Count 316 10^3/uL (130-400); RBC 2.76 10^6/uL (4.36-5.78); RDW 15.9 % (11.8-14.1); RDW-SD 52.1 fL; WBC 7.65 10^3/uL (4.4-10.8)
[2024-06-10 06:56] LABS: Anion Gap 8.7 mmol/L (3-11); CO2 32.3 mmol/L (21.0-32.0); CREATININE 3.4 mg/dL (0.70-1.30); Calcium 9.2 mg/dL (8.5-10.1); Chloride 101 mmol/L (98-107); Estimated GFR 18.64 (mL/min/1.73m2); Glucose 112 mg/dL (74-106); Potassium 3.7 mmol/L (3.5-5.1); Sodium 142 mmol/L (136-145)
[2024-06-10 06:58] LABS: BUN 84 mg/dL (7-18)
[2024-06-10] MEDS: Pantoprazole 40 MG TABCR PO ×2 (07:33→20:27)
[2024-06-10] MEDS: Sucralfate 1 GM TAB PO ×4 (07:33→23:04)
[2024-06-10] MEDS: Zinc Sulfate 220 MG TAB PO (08:23)
[2024-06-10] MEDS: Carvedilol 25 MG TAB PO ×2 (08:23→20:27)
[2024-06-10] MEDS: Prenatal Multivitamin w/CA,FE TAB 1 TAB PO (08:23)
[2024-06-10] MEDS: Protein Nutritional Supplement 16 GM 1 OUNCE PACKET PO ×3 (08:56→20:28)
--- NOTE | 2024-06-10 09:06 | W.NUTRFU ---
Date of service: 06/10/24 Time of Service: 09:06 Nutrition Note NOTE: Received diabetes education/mgt consult order for this 69to male patient admitted 3 days ago from [facility] rehab with GI bleed/duodenal ulcer. PMH significant for DMII with insulin use, CKD3, COPD, CHF, PAD and Obesity. He recently had wound consult completed for stage 1 and 2 pressure ulcers to buttocks. A1C 6/4% last month. mealtime fingersticks 128-188 the last 48 hours. Good fastings the last 4 days - 112-151. Pt with good po intake on CHO consistent and Heart Healthy diet order with normal consistencies. Rx includes vitamin, liquid collagen concentrate TID and 220mg ZnSO4. - pt states he is taking the protein as ordered. Home diabetes meds: 15u lantus qpm, 8units humalog TID and Liraglutide. Asked about any hypo episodes and pt states ~1 per month. Pt asked about mealtime insulin - whether he counts carb amounts, etc... he feels it out and will administer full 8 units most meals and eat within half and hour. He demonstrates lower knowledge level regarding insuling administration and nutrition management of diabetes. Asim does most of his own shopping and cooking at baseline. States he does a lot of convenience choices and referenced [facility] dehyrated meals/soups - I looked some up online and many contain >800mg sodium per serving and are low in fiber and protein. Estimated energy needs: 2760kcals (2200recommended for weight loss). 92g protein (1.5g/kg IBW) 2760mL fluid. Nutrition intervention. Pt has been receiving additional 8oz Serafin ONS TID on meal trays to supply an additional 7.5g protein from Arganine and Glutamine and supplies HMB and nutrients to assist wound healing. Liquid protein TID supplies 45g protein daily and Serafin TID provides 7.5g protein. Pt instructed on high protein food choices like LS cottage cheese, meats, eggs, dairy, beans and nuts and seeds. Recommend vitamin D lab and correct if low or order 10,000IU per day until dischage and pt follows up with pcp - pt with hx of vitamin D deficiency and is an essential nutrient for wound healing. Pt accepted my card to contact and book outpatient nutrition visit to help work on supporting appropriate use of mealtime insulin and education on carb choices/amounts to plan for, as well as avoiding CVD complications from his high sodium intake and low fiber intake at baseline. Time Spent in Nutritional Counseling and Treatment: 15 min
--- NOTE | 2024-06-10 10:29 | CMPROGNOTE_ITS ---
Date of service: 06/10/24 Time of Service: 10:30 Care Management Progress Note Progress Note Text Progress Note Text: Anna was sitting up in bed when CM met with him. He reported that he feels he is improving, but that he does not feel ready for discharge. Per MD, he is not yet medically cleared, although he is making improvements. Anna expressed that he would like to return home when he is medically cleared, instead of returning to [facility]. CM discussed this with him, and asked how he is doing physically; he stated that on a scale from 1-10, he thinks that he is a 1, stating that he is not safe to return to the community. He stated that he would rather go to another facility; CM agreed to send referrals to the [facility], but stated that if he does not have a bed offer from a different facility prior to discharge readiness, his plan would be to return to [facility]. He expressed understanding of this plan, and was happy to have other options. CM provided Anna with contact information for [employer]abel to help advocate for him while at the facility. CM will continue to follow. Discharge Potential Discharge Needs: Other (coordinated return to [facility]) Anticipated Barriers to Discharge: None Identified Patient/Family Education Needs: Review discharge instructions, discuss Ask Me Three Transportation: Facility Transport Plan: Anticipate Anna will return to [facility] when medically cleared vs another facility for short term rehab, if he receives a bed offer during this acute admission. Referrals were sent to the [facility]. He will follow up with the facility providers and plan of care and transport via facility w/c van. CM will follow and continue to assess for discharge needs. SDOH(Care Management) Screening Will the Patient Participate in the Screening?: Declined to provide Do you worry about having a steady place to live?: yes Social Determinants of Health Comments(SDOH Details): unable to complete patient falling asleep Health Related Social Needs Health related social needs: housing instability, housed, with risk of homelessness(Z59.811)
--- NOTE | 2024-06-10 10:32 | W.PM.PROGNOT ---
Date of Service Date of service: 06/10/24 Time of Service: 10:32 Assessment and Plan Assessment and plan (1) Anemia: Status: Chronic Assessment and plan: -Acute blood loss anemia secondary to duodenal ulcer also complicated by local skin bleeding from skin ulcerations over his buttocks. -Continued treatment with Carafate and Protonix along with local wound care. -Hb 6.3 on admission, s/p total of 3U PRBCs -Monitor H&H and transfuse as needed, last Hb AM 06/10 7.9 Qualifiers: Anemia type: iron deficiency Iron deficiency anemia type: chronic blood loss Qualified Code(s): D50.0 - Iron deficiency anemia secondary to blood loss (chronic) (2) Duodenal ulcer: Status: Acute Assessment and plan: -Diagnosed at [facility] 05/09/2024. -continue on PPI and Carafate (3) Hematochezia: Status: Acute (4) CHF (congestive heart failure): Assessment and plan: -still working on records from [facility] [place] -f/u echocardiogram to be done 06/09 -net negative 2.1 on 06/09, total net negative 11.4L since admission -Continue lasix 80mg TID, strict I/O's Qualifiers: Heart failure chronicity: acute on chronic Heart failure type: unspecified Qualified Code(s): I50.9 - Heart failure, unspecified (5) Pulmonary hypertension: Status: Acute Assessment and plan: -previous physician could not get tricuspid regurgitant velocity on bedside echo body habitus and positioning -f/u formal TTE -suspect that he has obstructive sleep apnea; patient stated he has been recommended to wear CPAP mask but he refuses to wear one (6) Ulcer of buttock: Status: Acute Assessment and plan: -Wound care consult and offloading of pressure. (7) Acute renal failure: Status: Inactive Assessment and plan: -improved creatinine to 3.4 w/ diuresis; continue to monitor UO and labs Qualifiers: Acute renal failure type: unspecified Qualified Code(s): N17.9 - Acute kidney failure, unspecified (8) Atrial fibrillation with RVR: Status: Acute Assessment and plan: -Xarelto is on hold in light of his acute blood loss anemia. -Will monitor heart rate and rhythm And continue carvedilol. (9) Acute head trauma: Status: Acute Assessment and plan: -Closed head injury with facial contusions and superficial lacerations which have been closed. Qualifiers: Encounter type: subsequent encounter Qualified Code(s): S09.90XD - Unspecified injury of head, subsequent encounter (10) Diabetes mellitus type 2 in obese: Status: Acute Assessment and plan: -Continue basal bolus insulin glucose levels are running in the 110s to 120s. glycohemoglobin A1c is controlled at 6.4% however, I am not sure this is accurate d/t his anemia. -Will check fructosamine level which may be more accurate in anemia (11) CKD (chronic kidney disease) stage 3, GFR 30-59 ml/min: Status: Chronic Qualifiers: Chronic kidney disease stage 3 subtype: unspecified whether 3a or 3b Qualified Code(s): N18.30 - Chronic kidney disease, stage 3 unspecified (12) DVT prophylaxis: Status: Acute Assessment and plan: Not a candidate for chemoprophylaxis therefore will place the patient on SCDs Subjective Subjective Interval history since last seen: Patient states that he is doing well today. He is happy that his swelling and edema are continuing to improve. Exam Narrative Exam Narrative: chronically ill appearing older gentleman laying in bed in no acute distress, AOx4, heart RRR, lungs diffuse mild course breath sounds throughout, abdomen obese, soft, non-tender, non-distended, +3 bilateral pitting edema and signs of chronic edema to LE with bandage over right second toe Objective Last Vital Signs Temp 100.2 F H 06/09/24 23:00 Pulse 106 H 06/10/24 06:07 Resp 23 06/10/24 06:07 BP 109/60 06/10/24 05:33 Pulse Ox 94 06/10/24 07:48 Laboratory Results - last 24 hr 06/09/24 06/10/24 05:44 06:15 WBC 7.65 RBC 2.76 L Hgb 7.9 L Hct 24.8 L MCV 90 MCH 28.6 MCHC 31.9 L RDW 15.9 H Plt Count 316 MPV 10.1 Sodium 142 Potassium 3.7 Chloride 101 Carbon Dioxide 32.3 H Anion Gap 8.7 BUN 84 H* Creatinine 3.4 H Est GFR (CKD-EPI 2020) 18.64 Glucose 112 H Calcium 9.2 Homocysteine 19.9 H Time Spent with Patient Time Spent with Patient: >50 minutes Time was spent: preparing to see the patient(eg.review tests), obtaining and/or reviewing separately otained hiistory, ordering medications,tests, procedures, referring, communicating with other health respiratory care technician, indepentently interpreting results, counseling the patient and care coordination
[2024-06-10] MEDS: Metoprolol 5 MG/5 ML VIAL IVP ×2 (12:31→14:01)
--- NOTE | 2024-06-10 13:57 | PTTR_ITS ---
PT Notes Visit Reasons: GI bleed/ Renal Failure Inpatient Physical Therapy Treatment Note Date: 06/10/2024 Referring Doctor: Avi Herrera MD PT Orders: PT CONSULT: Extended stay weakness Precautions: Falls. Skin breakdown. Activity as tolerated. Subjective: More confident to handle self in doing transfer tasks. Denied headache, chest pain, and lightheadeness throughout session. Objective: General Observation: catheter, telemetry, IV access Mental Status: Alert and oriented x3, very pleasant Vital Signs: Monitored via nursing Bed Mobility/Transfers: R S/L to supine stand by assist with use of bed rail or support Supine-sit: stand by assist HOB 30 degrees Gait: 12 feet + 12 feet with bariatric standard walker. Toe off-loading post-op boot on the L and regular sneaker on the R to prevent any leg length discrepancy that could increase pain report and compromises balance skills. Step height and length asymmetric. Contact guard assist of 2 for safety. Needed minmal verbal cueing for safety, weight distribution, and posture. Balance: Static Sitting: Normal Dynamic Sitting: Good Static Standing: Fair Dynamic Standing: Fair Assessment: Agreeable to trying out STEDY lift but device proved to be too narrow for patient. Patient did better with bariatric standard walker--1 step for hedrick, 5 steps to the R up side of bed with no report of increased pain, HR in the high 130s but decreased to WNL within 2-3 minutes; RR up to 22 cpm. Nurse Larisa assisted for safety, Nurse Melissa provided pericare and changed bed while patient stood up at edge of bed about 6-7 minutes. In the afternoon session, patient tolerated 12 feet + 12 feet using bariatric standard walker THERA EX: seated LAQs x 10, Seatd marches x 10, seated clam shells x 2 with report of pain due to catheter being pinched sit to supine with minimal ssist to B LE supine to sit with stand by assistDyspneic with edge of bed activties with highest RR of mid 40s cpm that went down to low 30s with rest and resumption of supine. Required adequate rest to minimize SOB and fatigue. HR fluctuated between 90s through 140s throughout session. Required assist of 2 for sit to supine. Plan of Care/Treatment Plan: 1-2x/day, 7 days/week x 1 week. Plan of care has been reviewed with the PLANER OFF BEARER providing the service under Physical Therapy direction. Initiate Physical Therapy intervention for strengthening, bed mobility, transfers, gait, stairs, balance training, use of assistive device. DISCHARGE RECOMMENDATIONS: Patient will benefit from nursing home facility placement for continued skilled physical therapy services in order to progress mobility level, strength, and balance in preparation for a safe discharge to home. TREATMENT CODE/TIME: Session 1-- 72101 x 25 minutes for 2 units, 01024 x 16 minutes for 1 unit (09:07-09:48). Session 2--72445 x 29 minutes for 2 units (13:57-14:26).
[2024-06-10] MEDS: Lidocaine 1% Multi-Dose 20 ML VIAL (14:53)
[2024-06-10] MEDS: Bacitracin 1 PACKET ×2 (14:53)
[2024-06-10] MEDS: Insulin Aspart 300 UNITS/3 ML PEN SC (17:26)
--- NOTE | 2024-06-10 17:37 | NUR.NOTE ---
Nursing Note:Attempted to remove central line, was met with resistance, so I stopped. Called Dr. Gamez, he consulted surgery to come look at it. Dr. Goldman assessed and decided to remove the central line himself.
[2024-06-10] MEDS: Insulin Glargine 300 UNITS/3 ML PEN 15 UNITS SC (20:27)
[2024-06-11] VITALS (16 sets, daily range): BP systolic 118–144; BP diastolic 56–73; PULSE 66–104; RESP 5–32; TEMP 36.3–37.1; O2SAT 89–96
[2024-06-11 06:04] LABS: Anion Gap 7.7 mmol/L (3-11); CO2 33.3 mmol/L (21.0-32.0); CREATININE 3.5 mg/dL (0.70-1.30); Calcium 9.4 mg/dL (8.5-10.1); Chloride 100 mmol/L (98-107); Estimated GFR 18.01 (mL/min/1.73m2); Glucose 123 mg/dL (74-106); Potassium 3.5 mmol/L (3.5-5.1); Sodium 141 mmol/L (136-145)
[2024-06-11] MEDS: Furosemide 100 MG/10 ML VIAL 80 MG IVP (06:05)
[2024-06-11 06:06] LABS: HCT 26.8 % (40.0-50.0); HGB 8.4 g/dL (13.5-17.5); MCH 28.7 pg (27.0-33.0); MCHC 31.3 % (32.0-36.0); MCV 92 fL (80-95); MPV 10.2 fL (8.0-11.0); Platelet Count 374 10^3/uL (130-400); RBC 2.93 10^6/uL (4.36-5.78); RDW 15.9 % (11.8-14.1); WBC 7.75 10^3/uL (4.4-10.8)
[2024-06-11 06:29] LABS: BUN 102 mg/dL (7-18)
[2024-06-11] MEDS: Albuterol 2.5 MG/3 ML INH SOLN VIAL UPD ×3 (07:26→21:39)
[2024-06-11] MEDS: Prenatal Multivitamin w/CA,FE TAB 1 TAB PO (08:12)
[2024-06-11] MEDS: Sucralfate 1 GM TAB PO ×3 (08:12→17:14)
[2024-06-11] MEDS: Zinc Sulfate 220 MG TAB PO (08:12)
[2024-06-11] MEDS: Carvedilol 25 MG TAB PO (08:12)
[2024-06-11] MEDS: Pantoprazole 40 MG TABCR PO ×2 (08:12→21:25)
[2024-06-11] MEDS: Normal Saline Flush 10 ML SYR IVP ×2 (08:13→21:25)
[2024-06-11] MEDS: Protein Nutritional Supplement 16 GM 1 OUNCE PACKET PO ×3 (08:13→22:36)
[2024-06-11] MEDS: Furosemide 80 MG TAB PO ×2 (08:13→17:14)
--- NOTE | 2024-06-11 08:37 | PGE_ITS ---
Date of Service Date of service: 06/11/24 Time of Service: 08:38 Assessment and Plan Assessment and plan (1) Anemia: Status: Chronic Assessment and plan: -Acute blood loss anemia secondary to duodenal ulcer also complicated by local skin bleeding from skin ulcerations over his buttocks. -Continued treatment with Carafate and Protonix along with local wound care. -Hb 6.3 on admission, s/p total of 3U PRBCs -Monitor H&H and transfuse as needed, last Hb AM 06/10 7.9 Qualifiers: Anemia type: iron deficiency Iron deficiency anemia type: chronic blood loss Qualified Code(s): D50.0 - Iron deficiency anemia secondary to blood loss (chronic) (2) Duodenal ulcer: Status: Acute Assessment and plan: -Diagnosed at [facility] 05/09/2024. -continue on PPI and Carafate (3) Hematochezia: Status: Acute (4) CHF (congestive heart failure): Assessment and plan: -still working on records from [facility] -f/u echocardiogram to be done 06/09 -net negative 4.2 on 06/10, total net negative 16.6L since admission -BUN increasing, now up to 102 on AM 06/11 though patient is without signs of uremia -decreasing lasix to 80mg PO BID -rechecking BMP @1400 -if patient becomes confused/uremic, or starts to have drop off in urine output/retain fluid he may need to be transferred for dialysis Qualifiers: Heart failure type: unspecified Heart failure chronicity: acute on chronic Qualified Code(s): I50.9 - Heart failure, unspecified (5) Pulmonary hypertension: Status: Acute Assessment and plan: -previous physician could not get tricuspid regurgitant velocity on bedside echo body habitus and positioning -suspect that he has obstructive sleep apnea; patient stated he has been recommended to wear CPAP mask but he refuses to wear one (6) Ulcer of buttock: Status: Acute Assessment and plan: -Wound care consult and offloading of pressure. (7) Acute renal failure: Status: Inactive Assessment and plan: -improved creatinine to 3.4 w/ diuresis; continue to monitor UO and labs Qualifiers: Acute renal failure type: unspecified Qualified Code(s): N17.9 - Acute kidney failure, unspecified (8) Atrial fibrillation with RVR: Status: Acute Assessment and plan: -Xarelto is on hold in light of his acute blood loss anemia. -Will monitor heart rate and rhythm And continue carvedilol. (9) Acute head trauma: Status: Acute Assessment and plan: -Closed head injury with facial contusions and superficial lacerations which have been closed. Qualifiers: Encounter type: subsequent encounter Qualified Code(s): S09.90XD - Unspecified injury of head, subsequent encounter (10) Diabetes mellitus type 2 in obese: Status: Acute Assessment and plan: -Continue basal bolus insulin glucose levels are running in the 110s to 120s. glycohemoglobin A1c is controlled at 6.4% however, I am not sure this is accurate d/t his anemia. -Will check fructosamine level which may be more accurate in anemia (11) CKD (chronic kidney disease) stage 3, GFR 30-59 ml/min: Status: Chronic Qualifiers: Chronic kidney disease stage 3 subtype: unspecified whether 3a or 3b Qualified Code(s): N18.30 - Chronic kidney disease, stage 3 unspecified (12) DVT prophylaxis: Status: Acute Assessment and plan: Not a candidate for chemoprophylaxis therefore will place the patient on SCDs Subjective Subjective Interval history since last seen: Patient states that he is doing well today. He continues to feel that his swelling is improving. He is also aware that his BUN is increasing, and that if it continues to rise despite decrease his lasix dose, or if he begins to retain fluid again that he may need to be transferred for dialysis. Exam Narrative Exam Narrative: chronically ill appearing older gentleman laying in bed in no acute distress, AOx4, heart RRR, lungs diffuse mild course breath sounds throughout, abdomen obese, soft, non-tender, non-distended, +3 bilateral pitting edema and signs of chronic edema to LE with bandage over right second toe Objective Last Vital Signs Temp 97.3 F L 06/11/24 07:45 Pulse 95 H 06/11/24 07:30 Resp 12 06/11/24 07:30 BP 144/68 H 06/11/24 07:12 Pulse Ox 95 06/11/24 07:30 Laboratory Results - last 24 hr 06/11/24 05:45 WBC 7.75 RBC 2.93 L Hgb 8.4 L Hct 26.8 L MCV 92 MCH 28.7 MCHC 31.3 L RDW 15.9 H Plt Count 374 MPV 10.2 Sodium 141 Potassium 3.5 Chloride 100 Carbon Dioxide 33.3 H Anion Gap 7.7 BUN 102 H* Creatinine 3.5 H Est GFR (CKD-EPI 2020) 18.01 Glucose 123 H Calcium 9.4 Time Spent with Patient Time Spent with Patient: >50 minutes Time was spent: preparing to see the patient(eg.review tests), obtaining and/or reviewing separately otained hiistory, ordering medications,tests, procedures, referring, communicating with other health health care marketing manager, indepentently interpreting results, counseling the patient and care coordination
--- NOTE | 2024-06-11 08:48 | PDOC.CMPRO ---
Date of service: 06/11/24 Time of Service: 08:48 Care Management Progress Note Progress Note Text Progress Note Text: Anna was sitting up in bed when CM met with him. He was preparing to be moved out of ICU onto the Med-Surg unit. Referrals had been sent to [facility] and [facility] as he requested but both facilities declined to make a bed offer. His insurance is a barrier as is the lack of a secondary natasha source. Anna again informed CM that he would just like to remain at [facility] until he is ready to go home, but that is not feasible. He has a bed at [facility] and will return there when discharged unless he gets a bed at another facility. Clinically, Anna is doing a bit better but is not yet ready for discharge. Discharge Potential Discharge Needs: Other (SNF) Anticipated Barriers to Discharge: Bed availability (came from [facility] but does not want to return. Referrals sent to [facility] and [facility]) Patient/Family Education Needs: Review discharge instructions, discuss Ask Me Three Transportation: Private vehicle Plan: Anticipate Anna will transfer to a SNF when medically cleared for discharge. He came from [facility] but would prefer to go to a different SNF. Referrals were sent to [facility] and [facility], but unfortunately they both declined the referral. [facility] does not accept medicare replacement plans and the [facility] is concerned because he has no secondary insurance. CM will continue to support Anna and his discharge planning needs. SDOH(Care Management) Screening Will the Patient Participate in the Screening?: Declined to provide Do you worry about having a steady place to live?: yes Social Determinants of Health Comments(SDOH Details): unable to complete patient falling asleep Health Related Social Needs Health related social needs: housing instability, housed, with risk of homelessness(Z59.811)
[2024-06-11 08:54] LABS: Lab Add On Test Done
[2024-06-11 09:04] LABS: Magnesium 1.6 mg/dL (1.8-2.4)
[2024-06-11] MEDS: MAGNESIUM SULFATE 2 GM/50 ML BAG IVINF (13:45)
[2024-06-11 14:13] LABS: Anion Gap 6.3 mmol/L (3-11); CO2 33.7 mmol/L (21.0-32.0); Calcium 9.4 mg/dL (8.5-10.1); Chloride 99 mmol/L (98-107); Estimated GFR 17.41 (mL/min/1.73m2); Glucose 164 mg/dL (74-106); Potassium 3.8 mmol/L (3.5-5.1); Sodium 139 mmol/L (136-145)
[2024-06-11 14:15] LABS: BUN 107 mg/dL (7-18)
[2024-06-11 14:16] LABS: CREATININE 3.6 mg/dL (0.70-1.30)
--- NOTE | 2024-06-11 14:22 | W.PC.ACHO ---
Registration Status: Primary Language: Preferred Language: ED Information & Data Chief Complaint GI Bleed 06/06/24 17:04 Triage Note possible blood in stool 06/06/24 15:56 dizzy, increased weakness, appears pale Medical / Surgical History (Last Updated 06/06/24 @ 23:15 by Rodriguez Anderson MD) Cubital tunnel syndrome, bilateral Bilateral carpal tunnel syndrome Osteopenia (06/02/13) CKD (chronic kidney disease) Atrial fibrillation CHF (congestive heart failure) Acute on chronic diastolic CHF (congestive heart failure), NYHA class 1 PAD (peripheral artery disease) Acute kidney injury Bacteremia Discharge planning issues Cellulitis Right lumbar radiculitis Spondylosis of lumbar region without myelopathy or radiculopathy HTN (hypertension) Cellulitis of right leg Right carpal tunnel syndrome Laceration of skin of face COPD (chronic obstructive pulmonary disease) Type 2 diabetes mellitus Onychodystrophy Chronic back pain Edema Physical deconditioning Subjective pulsatile tinnitus Carpal tunnel syndrome Male erectile disorder (06/02/13) 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) 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) broken rt thumb (10/10/16) Vitamin D deficiency Dilated aortic root Atrial fibrillation Anxiety Essential hypertension Diverticulosis (Last Updated 06/06/24 @ 23:15 by Rodriguez Anderson MD) H/O surgical procedure Right knee surgery after injury Colonoscopy - IV Sedation (01/15/15) Most Recent Vital Signs Temperature 36.5 C 06/11/24 11:54 Temperature Source Temporal Artery Scan 06/11/24 11:54 Pulse 66 06/11/24 11:46 Pulse Rhythm Irregular 06/11/24 07:47 Pulse 104 H 06/11/24 11:46 Respiratory Rate 32 H 06/11/24 11:46 Respiratory Effort Non-Labored 06/11/24 07:47 Respiratory Depth Normal 06/11/24 07:47 Respiratory Pattern Tachypnea 06/11/24 07:47 Blood Pressure 122/69 06/11/24 11:46 Blood Pressure Mean 84 06/11/24 11:46 Blood Pressure Position Left Lateral 06/09/24 04:15 Pulse Oximetry 89 L 06/11/24 10:00 Oxygen Delivery Method Room Air 06/10/24 07:48 Oxygen Flow Rate 0 06/10/24 07:48 Pain Level 0 06/11/24 11:54 Comment documented under capture vital signs 06/10/24 17:24 Comment room air 06/09/24 13:03 Allergies No Known Allergies Allergy (Verified 06/03/24 20:24) Precautions Isolation Standard precaution 06/06/24 16:17 Active Medications Generic Name Dose Route Start Last Admin Trade Name Freq PRN Reason Stop Dose Admin Acetaminophen 500 mg 06/07/24 07:19 06/09/24 21:42 Acetaminophen 500 Mg Tab PO 500 mg Q6H PRN PRN Administration Albuterol Sulfate 2.5 mg 06/07/24 00:12 06/11/24 07:26 Albuterol 2.5 Mg/3 Ml Inh Soln Vial UPD 2.5 mg Q2H PRN PRN Administration Carvedilol 25 mg 06/07/24 08:30 06/11/24 08:12 Carvedilol 25 Mg Tab PO 25 mg BID VLAD Administration Clotrimazole 40 gm/ Zinc Oxide 0 gm 06/09/24 11:21 06/10/24 22:44 40 gm/ Vitamin A/Vitamin D 40 TP 1 applicatio gm BID PRN PRN Administration Furosemide 80 mg 06/11/24 08:30 06/11/24 08:13 Furosemide 80 Mg Tab PO 80 mg BID@0830,1600 VLAD Administration Magnesium Sulfate 2 gm in 50 mls @ 25 mls/hr 06/11/24 13:20 06/11/24 13:45 IVINF 06/11/24 15:19 25 mls/hr NOW ONE Administration Insulin Aspart 0 units 06/07/24 08:00 06/11/24 12:14 Insulin Aspart 300 Units/3 Ml Pen SC Not Given 0800,1200,1700 [facility] Protocol Insulin Glargine 15 units 06/07/24 20:00 06/10/24 20:27 Insulin Glargine 300 Units/3 Ml Pen SC 15 units QPM VLAD Administration Metoprolol Tartrate 5 mg 06/08/24 21:55 06/10/24 14:01 Metoprolol 5 Mg/5 Ml Vial IVP 5 mg Q2H PRN PRN Administration Multi-Ingredient Supplement 1 ounce 06/08/24 14:00 06/11/24 13:50 Protein Nutritional Supplement 16 Gm 1 Ounce Packet PO 1 ounce TID VLAD Administration Pantoprazole Sodium 40 mg 06/07/24 07:30 06/11/24 08:12 Pantoprazole 40 Mg Tabcr PO 40 mg BID@0730,2000 VLAD Administration Pt's Own Liraglutide 1.2 each 06/08/24 08:30 06/11/24 08:16 0.6 Mg/0.1 Ml Pen SC Not Given Injector DAILY VLAD Multivitamins 1 tab 06/08/24 09:25 06/11/24 08:12 Multivitamin W/Ca,Fe Tab PO 1 tab DAILY VLAD Administration Sodium Chloride 0 ml 06/06/24 16:02 06/10/24 05:25 Normal Saline Flush 10 Ml Syr IVP 40 ml PRN PRN Administration Sodium Chloride 0 ml 06/06/24 20:00 06/11/24 08:13 Normal Saline Flush 10 Ml Syr IVP 40 ml BID VLAD Administration Sucralfate 1 gm 06/07/24 07:30 06/11/24 11:42 Sucralfate 1 Gm Tab PO 1 gm AC & HS VLAD Administration Zinc Sulfate 220 mg 06/08/24 09:25 06/11/24 08:12 Zinc Sulfate 220 Mg Tab PO 220 mg DAILY VLAD Administration IV IV Catheter Type [Right Saline Lock Antecubital] IV Catheter Type [Right Single Lumen Subclavian Subclavian] IV Catheter Gauge [Right 20 Antecubital] Diagnostics 06/11/24 06/11/24 Range/Units 13:53 05:45 WBC 7.75 (4.4-10.8) 10^3/uL RBC 2.93 L (4.36-5.78) 10^6/uL Hgb 8.4 L (13.5-17.5) g/dL Hct 26.8 L (40.0-50.0) % MCV 92 (80-95) fL MCH 28.7 (27.0-33.0) pg MCHC 31.3 L (32.0-36.0) % RDW 15.9 H (11.8-14.1) % Plt Count 374 (130-400) 10^3/uL MPV 10.2 (8.0-11.0) fL Sodium 139 141 (136-145) mmol/L Potassium 3.8 3.5 (3.5-5.1) mmol/L Chloride 99 100 (98-107) mmol/L Carbon Dioxide 33.7 H 33.3 H (21.0-32.0) mmol/L Anion Gap 6.3 7.7 (3-11) mmol/L BUN 107 H* 102 H* (7-18) mg/dL Creatinine 3.6 H* 3.5 H (0.70-1.30) mg/dL Est GFR (CKD-EPI 2020) 17.41 18.01 (mL/min/1.73m2) Glucose 164 H 123 H (74-106) mg/dL Calcium 9.4 9.4 (8.5-10.1) mg/dL Magnesium 1.6 L (1.8-2.4) mg/dL Add-On Test Request Done [id number] Documentation Fingerstick Glucose Start: 06/07/24 00:12 Freq: .AC Status: Active Protocol: Activity Type Activity Date Activity User E-sign Co-sign Detail Recorded Client Recorded Date Recorded By Document 06/11/24 12:13 BKG DAEMON(3) NVT-BG05 06/11/24 12:14 BKG DAEMON(4) Intake and Output - 24 Hour Total 06/06/24 15:53 thru 06/11/24 12:29 Intake Total 4753 Output Total 64271 Balance -85547 Weight 165.5 kg Intake: IV 380 Oral 3210 Blood Product 1151 Rbc Leuko Reduced Unit 350 [id number] Rbc Leuko Reduced Unit 351 [id number] Rbc Leuko Reduced Unit 450 [id number] Other 12 Rbc Leuko Reduced Unit 12 [id number] Output: Urine 09879 Emesis 0 Other: Urine Color Yellow Urine Appearance Clear Sediment Mucous Threads Comment Changed securement device. Stool Occult Blood Positive Stool Size Large Stool Characteristics Soft Formed Brown Emesis Description None Urinary Catheter Urinary Catheter Date of 06/06/24 Insertion [Uretheral (Godinez)] Time of insertion [Uretheral ( 17:48 Godinez)] Falls Risk Assessment History of Falls Previous History 06/07/24 00:19 Contributing Factors Unstable 06/07/24 00:19 Ambulatory Aids Uses ambulatory device + 06/07/24 00:19 Tubes/Lines With any additional score 06/07/24 00:19 Gait Evaluation W/any additional score 06/06/24 16:17 Cognition No cognitive impairment 06/06/24 16:17 Fall Total Score 68 06/07/24 00:19 Level of Risk High Risk 06/07/24 00:19 Problems (Last Updated 06/06/24 @ 23:15 by Rodriguez Anderson MD) DVT prophylaxis (Acute) Ulcer of buttock (Acute) Bleeding hemorrhoid (Acute) Duodenal ulcer (Acute) Hematochezia (Acute) Acute head trauma (Acute) Anemia (Chronic) Atrial fibrillation with RVR (Acute) Pulmonary hypertension (Acute) Diabetes mellitus type 2 in obese (Acute) CKD (chronic kidney disease) stage 3, GFR 30-59 ml/min (Chronic 08/28/14) Overweight (Acute 04/08/12) Notes 06/10/24 17:37 Nursing Notes by Cathy Reed Nursing Note:Attempted to remove central line, was met with resistance, so I stopped. Called Dr. Gamez, he consulted surgery to come look at it. Dr. Goldman assessed and decided to remove the central line himself. Initialized on 06/10/24 17:37 - END OF NOTE v v v v v v v v v Sending and/or Receiving Nurses: Please use comment section below to note any information pertinent to the patient hand-off not included above. Information / Comments: Patient was admitted with a GI bleed, with a history of renal failure. He is alert and oriented, with expiratory wheezes, on telemetry with a-fib typically in the 80's. He has had 2 BM's today, loose and bloody. Ambulates with a walker and assist of 1, nuse states that he does get dizzy at times when ambulating. PU on buttocks, and 2+ pitting edema to BLE. Report received from: Halle Ramírez
--- NOTE | 2024-06-11 14:46 | PHA.REVIEW2 ---
Pharmacy Admission Review Admission Clinical Review Admission Pharmacy Review: DVT prophylaxis (Acute) Ulcer of buttock (Acute) Bleeding hemorrhoid (Acute) Duodenal ulcer (Acute) Hematochezia (Acute) Acute head trauma (Acute) Atrial fibrillation with RVR (Acute) Pulmonary hypertension (Acute) Diabetes mellitus type 2 in obese (Acute) Overweight (Acute 04/08/12) No Known Allergies Allergy (Verified 06/03/24 20:24) Resuscitation Status Full Code Height 6 ft 3 in Weight 165.5 kg Pharmacy Admission Review Renal Dosing Renal Dosing: BUN 107 mg/dL (7-18) H* 06/11/24 13:53 Creatinine 3.6 mg/dL (0.70-1.30) H* 06/11/24 13:53 Medications needing adjustments: Reviewed (crcl = 31 (CKD stage 3), current meds OK - monitor for addition of new meds that may need adjusting or further decrease in kidney fxn) List of meds needing interventions: lasix adjusted from 80 mg TID to BID (increased BUN) Anticoagulation Anticoagulation: Hgb 8.4 g/dL (13.5-17.5) L 06/11/24 05:45 Hct 26.8 % (40.0-50.0) L 06/11/24 05:45 Plt Count 374 10^3/uL (130-400) 06/11/24 05:45 INR 1.2 (0.9-1.1) H 06/06/24 16:12 Creatinine 3.6 mg/dL (0.70-1.30) H* 06/11/24 13:53 DVT Prophylaxis: Reviewed (SCDs - not a candidate for chemical prophylaxis (blood loss anemia)) Therapeutic Anticoagulation: Reviewed (on xarelto at home (15 mg qday, indication: afib), per note on home med list this has been held since 06/03/24 d/t a fall - continuing to hold (blood loss anemia)) Opiate Usage Evaluate Pain Scale/Pains Meds: Reviewed (not on any opiates) Relevant Labs Relevant Labs: Sodium 139 mmol/L (136-145) 06/11/24 13:53 Potassium 3.8 mmol/L (3.5-5.1) 06/11/24 13:53 Chloride 99 mmol/L (98-107) 06/11/24 13:53 Phosphorus 5.2 mg/dL (2.6-4.7) H 06/09/24 05:44 Magnesium 1.6 mg/dL (1.8-2.4) L 06/11/24 05:45 Electrolytes, C-Reactive P, ESR: Reviewed (on vitamin per provider request for extra folic acid, vit B and zinc supplementation) DM Control DM Control: Reviewed Insulin Dosing, Diabetic Medication: insulin aspart SS w/ meals + lantus 15 units qpm Cardiac Review Cardiac Review: Troponin I < 50 ng/L (< or =60) 06/06/24 19:25 NT-Pro-B Natriuret Pep 7467 pg/mL (<300) H 06/06/24 16:12 BP, HR, EF%: Reviewed QTc Review QTc: Reviewed (QTc = 452 06/06/24) IV to PO Switch IV Medications: Reviewed Home Meds Home Med List reviewed: Reviewed Relevent Home Meds Not ordered & why?: lisinopril, diltiazem, xarelto (blood loss anemia) Current Meds Current Medication Order Review: Reviewed
[2024-06-11] MEDS: Acetaminophen 500 MG TAB PO (15:06)
[2024-06-11] MEDS: Insulin Aspart 300 UNITS/3 ML PEN SC (17:10)
--- NOTE | 2024-06-11 17:13 | PT.INTREAT ---
PT Notes Visit Reasons: GI bleed/ Renal Failure Inpatient Physical Therapy Treatment Note Date: 06/11/2024 Referring Doctor: Avi Herrera MD PT Orders: PT CONSULT: Extended stay weakness Precautions: Falls. Skin breakdown. Activity as tolerated. Subjective: Fatigued. Dizzy. Hopeful that he could stay here longer to get stronger. Cautious about moving, afraid of falling. Objective: General Observation: catheter, telemetry, IV access Mental Status: Alert and oriented x3, very pleasant Vital Signs: Closely monitored by nursing staff Bed Mobility/Transfers: R S/L to supine stand by assist with use of bed rail or support HOB at 30 degrees Supine-sit: minimal sanjeev to one LE at a tme due to fatigue Gait: 5 feet + 5 feet with bariatric standard walker both in the morning and afternoon sessions, distance limited by report of dizziness and weakness. Toe off-loading post-op boot on the L and regular sneaker on the R to prevent any leg length discrepancy that could increase pain report and compromises balance skills. Step height and length asymmetric. Contact guard assist of 2 for safety. Needed minimal verbal cueing for safety, weight distribution, and posture. Balance: Static Sitting: Normal Dynamic Sitting: Good Static Standing: Fair Dynamic Standing: Fair Assessment: Dizziness and increased anxiety limited today's ability for mobility performance. Needde frequestn rests. Desaturated down to 87% on room air after transferring from bedside commode to Could only cover 5 steps to transfer from bed>bedside commode and then bedside commode to recliner. Patient moved from ICU to med surg level of care this afternoon. THERA EX: seated LAQs x 10, Seated marches x 10, seated clam shells x 2 with report of pain due to catheter being pinched sit to supine with minimal ssist to B LE supine to sit with stand by assist DISCHARGE RECOMMENDATIONS: Patient will benefit from nursing home facility placement for continued skilled physical therapy services in order to progress mobility level, strength, and balance in preparation for a safe discharge to home. TREATMENT CODE/TIME: Session 1-- 06951 x 25 minutes for 2 units, 63622 x 13 minutes for 1 unit (10:42-11:20). Session 2--48349 x 21 minutes for 1 unit (14:40-15:01).
[2024-06-11] MEDS: Carvedilol 12.5 MG TAB 25 MG PO (21:22)
[2024-06-11] MEDS: Insulin Glargine 300 UNITS/3 ML PEN 15 UNITS SC (21:22)
[2024-06-12] VITALS (8 sets, daily range): BP systolic 129–143; BP diastolic 76–91; PULSE 79–145; RESP 17–26; TEMP 36.4–36.8; O2SAT 93–99
[2024-06-12] MEDS: Sucralfate 1 GM TAB PO ×5 (00:03→22:28)
[2024-06-12 06:16] LABS: HCT 27.6 % (40.0-50.0); HGB 8.6 g/dL (13.5-17.5); MCH 28.5 pg (27.0-33.0); MCHC 31.2 % (32.0-36.0); MCV 91 fL (80-95); MPV 10.3 fL (8.0-11.0); Platelet Count 362 10^3/uL (130-400); RBC 3.02 10^6/uL (4.36-5.78); RDW 15.8 % (11.8-14.1); RDW-SD 51.9 fL; WBC 7.12 10^3/uL (4.4-10.8)
[2024-06-12 06:35] LABS: CREATININE 3.3 mg/dL (0.70-1.30); Calcium 9.3 mg/dL (8.5-10.1); Chloride 97 mmol/L (98-107); Estimated GFR 19.32 (mL/min/1.73m2); Glucose 113 mg/dL (74-106); Potassium 3.3 mmol/L (3.5-5.1); Sodium 138 mmol/L (136-145)
[2024-06-12 06:40] LABS: BUN 108 mg/dL (7-18)
[2024-06-12] MEDS: Protein Nutritional Supplement 16 GM 1 OUNCE PACKET PO ×3 (08:18→22:30)
[2024-06-12] MEDS: Zinc Sulfate 220 MG TAB PO (08:18)
[2024-06-12] MEDS: Pantoprazole 40 MG TABCR PO ×2 (08:20→19:48)
[2024-06-12] MEDS: Furosemide 80 MG TAB PO ×2 (08:20→15:28)
[2024-06-12] MEDS: Carvedilol 12.5 MG TAB 25 MG PO ×2 (08:21→19:48)
[2024-06-12] MEDS: Prenatal Multivitamin w/CA,FE TAB 1 TAB PO (08:24)
[2024-06-12] MEDS: Normal Saline Flush 10 ML SYR IVP ×2 (08:35→19:49)
--- NOTE | 2024-06-12 09:48 | PDOC.CMPRO ---
Date of service: 06/12/24 Time of Service: 09:48 Care Management Progress Note Progress Note Text Progress Note Text: Anna was sitting up in a chair when CM met with him. He was smiling and stated that he is feeling better. He was able to get out of bed alone and walk to the commode and then the chair using his walker. He informed CM again that he does not want to go back to [facility]. He firmly stated he wants to go home. His goal is to be able to walk from his bed to the door. He feels that he would not have to walk much further than that at home. He had been staying in a camper but his brother has closed it up for the winter. He found a small (300 square feet) rental cabin all on one level which he feels he can manage independently. He can cook for himself and is independent with ADLs. The cabin is close to his brother and other family which will be helpful. Anna is still not medically ready for discharge but likely will be soon. Discharge Potential Discharge Needs: Other (return to SNF) Anticipated Barriers to Discharge: Medical Status Patient/Family Education Needs: Review discharge instructions, discuss Ask Me Three Transportation: Facility Transport Plan: Anticipate Anna will transfer to a SNF when medically cleared for discharge. He came from [facility] but would prefer to go home or to a different SNF. He understands that if another bed offer is not received, he will return to [facility] if he is not safe to go home by the time he is medically cleared for discharge . CM will continue to support Anna and his discharge planning needs. SDOH(Care Management) Screening Will the Patient Participate in the Screening?: Declined to provide Do you worry about having a steady place to live?: yes Social Determinants of Health Comments(SDOH Details): unable to complete patient falling asleep Health Related Social Needs Health related social needs: housing instability, housed, with risk of homelessness(Z59.811)
[2024-06-12] MEDS: Acetaminophen 500 MG TAB PO (11:12)
--- NOTE | 2024-06-12 11:12 | PT.INTREAT ---
PT Notes Visit Reasons: GI bleed/ Renal Failure Inpatient Physical Therapy Treatment Note Date: 06/12/2024 Referring Doctor: Avi Herrera MD PT Orders: PT CONSULT: Extended stay weakness Precautions: Falls. Skin breakdown. Activity as tolerated. Subjective: Fatigued. Less dizzy. Nurse made aware of patient report of dizziness, patient is wondering if the water pill he is taking is contributing to ithe symptom. Happy about mother's visit today on her 85th birthday. Objective: General Observation: catheter, telemetry, IV access Mental Status: Alert and oriented x3, very pleasant Vital Signs: Closely monitored by nursing staff Bed Mobility/Transfers: R S/L to supine stand by assist with use of bed rail or support HOB at 30 degrees Supine-sit: stand by assist Sit to stand from edge of bed minimal assist of 2 Stand to sit onto bedisde recliner contact guard assist Gait: 8 steps+ 8 steps with bariatric standard walker both in the morning and afternoon sessions, distance limited by report of dizziness and weakness. Toe off-loading post-op boot on the L and regular sneaker on the R to prevent any leg length discrepancy that could increase pain report and compromises balance skills. Step height and length asymmetric. Stand by assist for safety. Needed minimal verbal cueing for safety, weight distribution, and posture. Balance: Static Sitting: Normal Dynamic Sitting: Good Static Standing: Fair Dynamic Standing: Fair Assessment: Continued dizziness limiting patient's performance. Overall performed better today than yesterday. Concern about continued dizziness from diuretic use was brought up with nurse. Needed frequestn rests. THERA EX: Continued training with supine level exercises to facilitate improvement in range of motion and motor recruitment: Ankle pumps x 20 Deep breathing exercises with chest expansion x 5 Quads sets with 5 sh x 10 Deep breathing exercises with chest expansion x 5 Glueal sets with 5 sh x 10 Deep breathing exercises with chest expansion x 5 Ankle knee to chest x 10 Deep breathing exercises with chest expansion x 5 DISCHARGE RECOMMENDATIONS: Patient will benefit from group home facility placement for continued skilled physical therapy services in order to progress mobility level, strength, and balance in preparation for a safe discharge to home. TREATMENT CODE/TIME: Session 1-- 64253 x 15 minutes for 1 unit, [id number] x 14 minutes for 1 unit (11:12-11:41). Session 2--[id number] x 15 minutes for 1 unit, [id number] x 12 minutes for 1 unit (13:27-13:54).
--- NOTE | 2024-06-12 13:38 | PGE_ITS ---
Date of Service Date of service: 06/12/24 Time of Service: 13:38 Assessment and Plan Assessment and plan (1) Anemia: Status: Chronic Assessment and plan: -Acute blood loss anemia secondary to duodenal ulcer also complicated by local skin bleeding from skin ulcerations over his buttocks, which are no longer bleeding. -Continued treatment with Carafate and Protonix along with local wound care. -Hb 6.3 on admission, s/p total of 3U PRBCs -Stabilized 06/11- in mid 8s. Follow tomorrow. Qualifiers: Anemia type: iron deficiency Iron deficiency anemia type: chronic blood loss Qualified Code(s): D50.0 - Iron deficiency anemia secondary to blood loss (chronic) (2) Duodenal ulcer: Status: Acute Assessment and plan: -Diagnosed at [facility] 05/09/2024. -continue on PPI and Carafate (3) CHF (congestive heart failure): Assessment and plan: -still working on records from [facility] -Normal LV and RV function on POCUS. Formal echocardiogram not repeated here. -Fluid net negative 4.2 on 06/10, total net negative 16.6L since admission -Cr stable, BUN was increasing on IV furosemide, though patient is without signs of uremia -Furosemide changed to 80mg PO BID from IV on 06/11, follow BMP. -if patient becomes confused/uremic, or starts to have drop off in urine output/retain fluid he may need to be transferred for dialysis Qualifiers: Heart failure type: unspecified Heart failure chronicity: acute on chronic Qualified Code(s): I50.9 - Heart failure, unspecified (4) Pulmonary hypertension: Status: Acute Assessment and plan: -Dr. Herrera could not get tricuspid regurgitant velocity on bedside echo body habitus and positioning, but RV dilation in this setting suggest pHTN. -suspect that he has obstructive sleep apnea; patient stated he has been recommended to wear CPAP mask but he refuses to wear one (5) Ulcer of buttock: Status: Acute Assessment and plan: -Wound care consult and offloading of pressure, has airbed, improving. He also has a fissure, treat topically. -He seems to have pattern of psoriasis with flaking patches on scalp and buttocks. Consider topical steroid, though I would start at moderate potency. (6) Acute renal failure: Status: Inactive Assessment and plan: - Acute on chornic, improved creatinine to low 3s w/ diuresis; continue to monitor UO and labs Qualifiers: Acute renal failure type: unspecified Qualified Code(s): N17.9 - Acute kidney failure, unspecified (7) Atrial fibrillation with RVR: Status: Acute Assessment and plan: -Xarelto is on hold in light of his acute blood loss anemia. -Will monitor heart rate and rhythm And continue carvedilol. -Given this bleed while on treatment for ulcer, plan to hold OAC for at least 2 weeks. It may makes sense to consider watchman instead. (8) Acute head trauma: Status: Acute Assessment and plan: -Closed head injury with facial contusions and superficial lacerations which have been closed, healing. Qualifiers: Encounter type: subsequent encounter Qualified Code(s): S09.90XD - Unspecified injury of head, subsequent encounter (9) Diabetes mellitus type 2 in obese: Status: Acute Assessment and plan: -Continue basal bolus insulin glucose levels are running in the 110s to 120s. glycohemoglobin A1c is controlled at 6.4% however, I am not sure this is accurate d/t his anemia. -Will check fructosamine level which may be more accurate in anemia (10) CKD (chronic kidney disease) stage 3, GFR 30-59 ml/min: Status: Chronic Assessment and plan: Cr stabilized, in CKD 4 range since recent sepsis episode, which is likely his new baseline. Qualifiers: Chronic kidney disease stage 3 subtype: unspecified whether 3a or 3b Qualified Code(s): N18.30 - Chronic kidney disease, stage 3 unspecified (11) DVT prophylaxis: Status: Acute Assessment and plan: Not a candidate for chemoprophylaxis therefore his is on SCDs Subjective Subjective Patient reports: no new complaints, tolerating a regular diet and voiding w/o difficulty; denies nausea, vomiting, shortness of breath or fever Interval history since last seen: No further blood in stool. He hasn't seen the spots on his backside. Exam Narrative Exam Narrative: chronically ill appearing older gentleman laying in bed in no acute distress, AOx4, heart irregularly irregular, no murmur, lungs diffuse mild course breath sounds throughout, abdomen obese, soft, non-tender, non-distended, +2 bilateral pitting edema and signs of chronic edema to LE with bandage over right second toe. No open wounds on buttocks, pink in gluteal cleft with dry flaking patches on edges, similar along scalp and walters. Fissure posterior to anus, no hemorrhoids visible externally. Objective Last Vital Signs Temp 36.4 C L 06/12/24 07:29 Pulse 145 H 06/12/24 11:27 Resp 17 06/12/24 07:29 BP 141/77 H 06/12/24 07:29 Pulse Ox 98 06/12/24 07:29 Laboratory Results - last 24 hr 06/11/24 06/12/24 13:53 05:30 WBC 7.12 RBC 3.02 L Hgb 8.6 L Hct 27.6 L MCV 91 MCH 28.5 MCHC 31.2 L RDW 15.8 H Plt Count 362 MPV 10.3 Sodium 139 138 Potassium 3.8 3.3 L Chloride 99 97 L Carbon Dioxide 33.7 H 33.0 H Anion Gap 6.3 8.0 BUN 107 H* 108 H* Creatinine 3.6 H* 3.3 H Est GFR (CKD-EPI 2020) 17.41 19.32 Glucose 164 H 113 H Calcium 9.4 9.3 Time Spent with Patient Time Spent with Patient: >50 minutes Time was spent: preparing to see the patient(eg.review tests), obtaining and/or reviewing separately otained hiistory, ordering medications,tests, procedures, referring, communicating with other health health care recruiter, indepentently interpreting results, counseling the patient and care coordination
[2024-06-12] MEDS: Albuterol 2.5 MG/3 ML INH SOLN VIAL UPD ×2 (14:02→18:47)
[2024-06-12] MEDS: Potassium Chloride Liquid 20 MEQ PKT PO (15:28)
[2024-06-12 15:55] LABS: Methylmalonic Acid 0.43 nmol/mL (<=0.40)
[2024-06-12] MEDS: Insulin Aspart 300 UNITS/3 ML PEN SC (17:10)
--- NOTE | 2024-06-12 17:19 | WOUNDCONS ---
Date of service: 06/12/24 Time of Service: 17:20
--- NOTE | 2024-06-12 19:29 | WOUNDCONS_ITS ---
Date of service: 06/12/24 Time of Service: 17:00 Wound Initial Evaluation Narrative Narrative: Pt was recently at [facility] for septic episode related to his right second toe. He had dropped a cinder block onto his toe and had only wrapped it and continued to work and walk on the foot with leaving a soiled sock on the foot for up to a week. The sock had become adhered to his foot by the time he sought treatment for fever, chills, and lightheadedness. He was treated with antibiotics for several weeks, had a partial toe amputation for osteolitis , and dressing changes. He was then sent to a intermediate facility to complete the antibiotic course and for continued wound care. He was unable to make it to his follow up appointment at [facility] which was on 06/05/24. On 06/06/24, he was admitted to [facility] for a GI bleed with a hemaglobin of 6.3. He was given a total of 3 units of blood and level today was 8.6. WBC remained within the normal range. BUN was 72, now is 108. Creatinine was 4.2, now 3.3. HgbA1c was 6.4 with blood sugars in the 100's. Body Four View: 2 1. Right second metatarsal 2. Anterior tib fib skin tear Circulation, Sensation, Motion Edema Degree: 3+ Peripheral Pulse Strength: Normal Capillary Refill: Less than 3 seconds Sensation Description: Within Normal Limits Skin Temperature: Warm Skin Color: Mckinnon and Hyperpigmentation (Toe pink. Venous stasis lower extremities with thick flakey plaques. ) Additional Other Comments: 4th and 5th toenails blackened ANGY Comment:: Recent studies done at [facility] Pain Pain Level: 3 (with palpation) Pain Scale Used: Adult Pain Description: Achy Pain Duration/Frequency: Occasional (with touch) Wound Summary Wound Summary: Amputation of second distal metatarsal is healing well. Only slight abrasion between the great toe and amputation site from rubbing against one another. Overall looks healthy at this time. Does have tenderness at the site with palpation. Nail on the great toe mostly removed. Toenails on the 4th and 5th toes are black. Tissue around the toe benign. Photo Photo: Treatment/Dressing Change Topicals/Ointments: None Cleanse With: Cleanser with Surfactant and Debrisoft (Debrisoft to foot and hurtado area.) Dressing Types: Elastic Bandage, Foam (Maxsabsorb II Ag), Gauze and Xeroform (To tip of second toe and to area on anterior tib fib from scale removal.) Dressing Comment: Xeroform applied over the tip of the amputated toe. Covered with Maxsabsorb II Ag. Wrapped with kerlix to separate the great toe from the amputated site. Then wrapped with derek wrap starting at the toes and with a 50% stretch up to the knee. Left leg also wrapped with derek wrap up to the knee. Nutrition Education Reviewed Nutrition Education: Yes Note: Protein for healing. Recomendation Recomendation:: Right second toe amputation site: 1. Cleanse the area with wound cleanser. Allow to dwell for 2 minutes. Pat dry. Do the same to the anterior tib fib skin tear. 2. Cover the end of the toe with Xeroform as well as area on right anterior tib fib skin tear. 3. Cover both areas with Maxsabsorb II Ag. 4. Wrap foot with donis with layer between the great toe and amputation site. Continue up the leg with donis to cover the hurtado wound area. 5. Wrap the leg, starting at the toes, with a 50% stretch derek wrap up to below the knee. 6. Also wrap the left leg with a 50% stretch derek wrap starting at the toes to below the knee. 7. Changes the dressings daily and prn. Keep legs elevated while in bed or in recliner. Physcian/Nurse Practioner Notified: Yes Referrals: Podiatry Treatment Time Time Total Time Spent with Patient: 35 minutes Patient Will be Seen Weekly Treatment: daily For: For:: 2 weeks
[2024-06-12] MEDS: Insulin Glargine 300 UNITS/3 ML PEN 15 UNITS SC (20:32)
[2024-06-13] VITALS (19 sets, daily range): BP systolic 126–155; BP diastolic 67–87; PULSE 83–162; RESP 2–26; TEMP 36.4–37.4; O2SAT 87–100
--- NOTE | 2024-06-13 | DI.RAD_ITS ---
Exam(s) XR PORTABLE CHEST AP EXAM: XR PORTABLE CHEST AP CLINICAL HISTORY: increased hypoxia/SOB TECHNIQUE: 2D digital imaging was performed. COMPARISON: CT CT ABDOMEN PELVIS WO from 06/06/2024 CR XR CHEST 1V IN DI DEPT from 06/06/2024 FINDINGS: Exam is limited by under penetration particularly at the lung bases and multiple old overlying monito ring leads. LUNGS: Clear where visualized. No pleural abnormality seen. HEART: Enlarged. AORTA: Normal diameter. Calcium at arch. BONES: Unremarkable for age. Soft tissues: Unremarkable. IMPRESSION: Limited exam. No acute findings. DATA REPOSITORY: RADIATION DOSE DELIVERED:
[2024-06-13 06:47] LABS: HCT 26.5 % (40.0-50.0); HGB 8.4 g/dL (13.5-17.5)
[2024-06-13 07:13] LABS: Anion Gap 7.7 mmol/L (3-11); CO2 34.3 mmol/L (21.0-32.0); CREATININE 3.1 mg/dL (0.70-1.30); Chloride 97 mmol/L (98-107); Estimated GFR 20.83 (mL/min/1.73m2); Glucose 123 mg/dL (74-106); Magnesium 1.8 mg/dL (1.8-2.4); Potassium 3.5 mmol/L (3.5-5.1); Sodium 139 mmol/L (136-145)
[2024-06-13 07:15] LABS: BUN 109 mg/dL (7-18)
[2024-06-13] MEDS: Pantoprazole 40 MG TABCR PO ×2 (08:01→19:37)
[2024-06-13] MEDS: Protein Nutritional Supplement 16 GM 1 OUNCE PACKET PO ×3 (08:01→20:10)
[2024-06-13] MEDS: Sucralfate 1 GM TAB PO ×4 (08:02→21:50)
[2024-06-13] MEDS: Carvedilol 12.5 MG TAB 25 MG PO ×2 (08:05→19:37)
[2024-06-13] MEDS: Zinc Sulfate 220 MG TAB PO (08:06)
[2024-06-13] MEDS: Prenatal Multivitamin w/CA,FE TAB 1 TAB PO (08:07)
[2024-06-13] MEDS: Normal Saline Flush 10 ML SYR IVP ×3 (08:12→20:56)
[2024-06-13] MEDS: Potassium Chloride Liquid 20 MEQ PKT 10 MEQ PO (08:14)
[2024-06-13] MEDS: Furosemide 80 MG TAB PO ×2 (08:17→16:23)
[2024-06-13] MEDS: Albuterol 2.5 MG/3 ML INH SOLN VIAL UPD ×4 (08:53→23:01)
[2024-06-13] MEDS: Folic Acid 1 MG TAB PO (10:31)
--- NOTE | 2024-06-13 10:54 | PDOC.CMPRO ---
Date of service: 06/13/24 Time of Service: 10:54 Care Management Progress Note Progress Note Text Progress Note Text: Anna was sitting up in a chair when CM met with him. He was smiling and stated he was feeling better. He ambulated to the nurses station desk with PT today and did well except that his heart rate increased into the 140s. He had been taken off of his Diltiazem because of cross reaction with his anticoagulant. The anticoagulant will be stopped and the Diltiazem will be restarted. This morning the provider assessed Anna and determined that he was likely medically ready for discharge but will keep him another day to monitor the medication changes. CM [facility] for [facility]. If the authorization is received by the end of the day, Anna can likely return this weekend. If not, he will remain at [facility] until Sunday. Discharge Potential Discharge Needs: PCP F/U Appt Anticipated Barriers to Discharge: Bed availability Patient/Family Education Needs: Review discharge instructions, discuss Ask Me Three Transportation: Facility Transport Plan: Anticipate Anna will transfer back to [facility] but would prefer to go home. He understands that he will return to [facility] if he is not safe to go home by the time he is medically cleared for discharge . CM will continue to support Anan and his discharge planning needs. SDOH(Care Management) Screening Will the Patient Participate in the Screening?: Declined to provide Do you worry about having a steady place to live?: yes Social Determinants of Health Comments(SDOH Details): unable to complete patient falling asleep Health Related Social Needs Health related social needs: housing instability, housed, with risk of homelessness(Z59.811)
--- NOTE | 2024-06-13 11:23 | PT.INPN ---
PT Notes Visit Reasons: GI bleed/ Renal Failure Inpatient Physical Therapy Ruchi Notes Date: 06/13/2024 Dates of Service: 06/07/2024 through 06/13/2024 Precautions: USE TOE-OFF LOADING SHOE ON THE R AND SNEAKER ON THE L WHEN OOB. Wheelchair follow for safety required. Subjective: Happy about how much he has achieved thus far with mobility. Declines going to a SNF across the street. Feel more confident about moving and walking. Dizziness seems to be less. Objective: General Observation: catheter, telemetry, IV access Mental Status: Alert and oriented x3, very pleasant Vital Signs: Monitored via telemtry and nursing staff ROM: Right Upper Extremity: Shoulder Flexion WFL. Shoulder abduction WFL. Elbow flexion WFL. Wrist flexion WFL. Functional opening and closing of hand WFL. Left Upper Extremity: Shoulder Flexion WFL. Shoulder abduction WFL. Elbow flexion WFL. Wrist flexion WFL. Functional opening and closing of hand WFL. Right Lower Extremity: Hip flexion WFL. Hip abduction WFL. Knee flexion WFL. Ankle dorsiflexion WFL. Ankle plantarflexion WFL. Left Lower Extremity: Hip flexion WFL. Hip abduction WFL. Knee flexion WFL. Ankle dorsiflexion WFL. Ankle plantarflexion WFL. Right Upper Extremity: Shoulder flexors 4-/5. Shoulder abductors 4-/5. Elbow flexors 4/5. Elbow extensors 4/5. Systems Software Engineer strong. Left Upper Extremity: Shoulder flexors 4-/5. Shoulder abductors 4-/5. Elbow flexors 4/5. Elbow extensors 4/5. Systems Software Engineer strong. Right Lower Extremity: Hip flexors 4-/5. Hip abductors 4-/5. Knee flexors 4/5. Knee extensors 4-/5. Ankle dorsiflexors 4-/5. Ankle plantarflexors 4-/5. Left Lower Extremity: Hip flexors 4-/5. Hip abductors 4-/5. Knee flexors 4/5. Knee extensors 4-/5. Ankle dorsiflexors 4-/5. Ankle plantarflexors 4-/5. Bed Mobility/Transfers: Supine-sit: stand by assist Sit-supine: stand by assist Gait: Patient now able to cover up to 30 feet of level surface ambulation using bariatric standard walker with bedside recliner follow for safety. Step height and length improving. Posture now more erect. Patietn now more able to efficiently distribute weight over walker and B LE for safety. Stand by assist only. HR shot up to 181 bpm after walking this farthest distance since admission but went back down quickly to 130s after about 2-3 minutes. Balance: Static Sitting: Normal Dynamic Sitting: Good Static Standing: Not assessed Dynamic Standing: Not assessed Special Tests: Mobility Limitations Standardized Measure [facility] AM-PAC 6 clicks Basic Mobility Inpatient Short Form: Raw Score: 10 CMS Score: 77% Informed Consent/Education: Patient instructed in purpose of PT consult and plan of care. THERA EX: Continued training with supine level exercises to facilitate improvement in range of motion and motor recruitment: Ankle pumps x 20 Deep breathing exercises with chest expansion x 5 Quads sets with 5 sh x 10 Deep breathing exercises with chest expansion x 5 Glueal sets with 5 sh x 10 Deep breathing exercises with chest expansion x 5 Ankle knee to chest x 10 Deep breathing exercises with chest expansion x 5 Assessment: Functional mobility performance markedly improved with patient now only requiring stand by assist with all bed mobility and transfer task perfrmance. Level of confidence with mobving about increased despite report of dizziness which is somewhat diminishing. HR shot up to 181 bpm with quick recovery about 2 minutes down to 130s bpm. Fatigue limits ability to sustain activity. Goals: Goals X1 week 1. Supine-Sit independent NOT MET, CONTINUE 2. Sit-Supine independent NOT MET, CONTINUE 3. Sit-Stand independent NOT MET, CONTINUE 4. Stand-Sit independent NOT MET, CONTINUE 5. Bed-Chair supervision with FWW NOT MET, CONTINUE 6. Chair-Bed supervision with FWW NOT MET, CONTINUE 7. Gait supervision WBAT with FWW 100 ft or greater NOT MET, CONTINUE 8. Stairs up/down 2-3 stairs with use of railing supervision NOT MET, CONTINUE 9. Independent with home exercise program NOT MET, CONTINUE 10. Improved standing balance NOT MET, CONTINUE Plan of Care/Treatment Plan: USE TOE-OFF LOADING SHOE ON THE R AND SNEAKER ON THE L WHEN OOB. Wheelchair follow for safety required. Progress mobility, strength, and activity tolerance as tolerated to ultimately go home vs short-term rehab when medically cleared. 1-2x/day, 7 days/week x 1 week. DISCHARGE RECOMMENDATIONS: SNF vs HH PT based on progress towards goals TREATMENT CODE/TIME: Session 1-- [id number] x 32 minutes for 1 unit (10:47-11:18) Session 2--[id number] x 23 minutes for 1 unit (13:37-14:00).
[2024-06-13] MEDS: dilTIAZem CD 120 MG CAPCR 240 MG PO (13:37)
--- NOTE | 2024-06-13 16:49 | PGE_ITS ---
Date of Service Date of service: 06/13/24 Time of Service: 16:49 Assessment and Plan Assessment and plan (1) Anemia: Status: Chronic Assessment and plan: -Acute blood loss anemia secondary to duodenal ulcer also complicated by local skin bleeding from skin ulcerations over his buttocks, which are no longer bleeding. -Continued treatment with Carafate and Protonix along with local wound care. -Hb 6.3 on admission, s/p total of 3U PRBCs -Stabilized 06/11- in mid 8s for the past several days. Qualifiers: Anemia type: iron deficiency Iron deficiency anemia type: chronic blood loss Qualified Code(s): D50.0 - Iron deficiency anemia secondary to blood loss (chronic) (2) Duodenal ulcer: Status: Acute Assessment and plan: -Diagnosed at [facility] 05/09/2024. -continue on PPI and Carafate (3) CHF (congestive heart failure): Assessment and plan: -still working on records from [facility], I haven't been able to access [facility] [employer] due to IT issues. -Normal LV and RV function on POCUS. Formal echocardiogram not repeated here. -Fluid total net negative close to 20L since admission, though not clearly reflected in weight. More level today after changing from IV to oral furosemide 06/11. -Cr improving, BUN was increasing on IV furosemide, though patient is without signs of uremia -continue to follow Qualifiers: Heart failure type: unspecified Heart failure chronicity: acute on chronic Qualified Code(s): I50.9 - Heart failure, unspecified (4) Pulmonary hypertension: Status: Acute Assessment and plan: -Dr. Herrera could not get tricuspid regurgitant velocity on bedside echo body habitus and positioning, but RV dilation in this setting suggest pHTN. -suspect that he has obstructive sleep apnea; patient stated he has been recommended to wear CPAP mask but he refuses to wear one (5) Ulcer of buttock: Status: Acute Assessment and plan: -Wound care consult and offloading of pressure, has airbed, improving. He also has a fissure, treat topically. -He seems to have pattern of psoriasis with flaking patches on scalp and buttocks, not currently treating topically. (6) Acute renal failure: Status: Inactive Assessment and plan: - Acute on chornic, improved creatinine to low 3s w/ diuresis; continue to monitor UO and labs Qualifiers: Acute renal failure type: unspecified Qualified Code(s): N17.9 - Acute kidney failure, unspecified (7) Atrial fibrillation with RVR: Status: Acute Assessment and plan: -Xarelto is on hold in light of his acute blood loss anemia. Combination with diltiazem increases rivaroxaban levels and thus bleeding risk. -Diltiazem was stopped, HR now high with more activity even on carvedilol 25mg BID. Will resume as we are holding off on DOAC for now. Will monitor heart rate and rhythm. -Given this bleed while on treatment for ulcer, plan to hold OAC for at least 2 weeks. It may makes sense to consider watchman instead. If he does resume rivaroxaban, a lower dose makes sense to me as diltizem raises effective dose. I could not find a source to suggest dose reduction, would consult clinical pharmacist if we go this route. (8) Acute head trauma: Status: Acute Assessment and plan: -Closed head injury with facial contusions and superficial lacerations which have been closed, healing. Qualifiers: Encounter type: subsequent encounter Qualified Code(s): S09.90XD - Unspecified injury of head, subsequent encounter (9) Diabetes mellitus type 2 in obese: Status: Acute Assessment and plan: -Continue basal bolus insulin glucose levels are running in the low 100s, which is good. glycohemoglobin A1c is controlled at 6.4% however, accuracy less d/t his anemia. (10) CKD (chronic kidney disease) stage 3, GFR 30-59 ml/min: Status: Chronic Assessment and plan: Cr trending down, still well in CKD 4 range as it has been since recent sepsis episode, which means this is likely his new baseline. Should ideally be on SALLIE/ARB and SGLT2i, start back on low dose lisinopril 5mg. 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 Will supplement both vitamins as they may help this inflammatory condition. Subjective Subjective Patient reports: no new complaints, feels better and tolerating a regular diet; denies blood in stool, nausea, vomiting or fever Interval history since last seen: He is feeling better. No further bleeding. Walked to hallway with nurses. His heart rate went up but he didn't feel faint or chest pain, feels fine now. still has figueroa. some more wet cough today per RN, patient states this is normal for him. Exam Narrative Exam Narrative: Older gentleman sitting up in chair, no acute distress, AOx4. Heart irregularly irregular, no murmur, lungs diffuse mild course breath sounds throughout. abdomen obese, soft, non-tender, non-distended, +2 bilateral pitting edema and signs of chronic edema to LE with bandage over right second toe. buttocks/anal area not visualized today. Objective Last Vital Signs Temp 37.4 C 06/13/24 15:28 Pulse 103 H 06/13/24 15:28 Resp 19 06/13/24 15:28 BP 155/70 H 06/13/24 15:28 Pulse Ox 92 06/13/24 15:28 Laboratory Results - last 24 hr 06/13/24 06/13/24 06/13/24 06:12 06:12 06:12 Hgb 8.4 L Hct 26.5 L Sodium 139 Cancelled Potassium 3.5 Cancelled Chloride 97 L Carbon Dioxide Anion Gap BUN Creatinine Est GFR (CKD-EPI 2020) Glucose Calcium Magnesium 06/13/24 06/13/24 06/13/24 06:12 06:12 06:12 Hgb Hct Sodium Potassium Chloride Cancelled Carbon Dioxide 34.3 H Cancelled Anion Gap 7.7 Cancelled BUN 109 H* Creatinine Est GFR (CKD-EPI 2020) Glucose Calcium Magnesium 06/13/24 06/13/24 06/13/24 06:12 06:12 06:12 Hgb Hct Sodium Potassium Chloride Carbon Dioxide Anion Gap BUN Cancelled Creatinine 3.1 H Cancelled Est GFR (CKD-EPI 2020) 20.83 Cancelled Glucose 123 H Calcium Magnesium 06/13/24 06/13/24 06:12 06:12 Hgb Hct Sodium Potassium Chloride Carbon Dioxide Anion Gap BUN Creatinine Est GFR (CKD-EPI 2020) Glucose Cancelled Calcium 9.0 Cancelled Magnesium 1.8 Time Spent with Patient Time Spent with Patient: >50 minutes Time was spent: preparing to see the patient(eg.review tests), obtaining and/or reviewing separately otained hiistory, ordering medications,tests, procedures, referring, communicating with other health care transport nurse, indepentently interpreting results, counseling the patient and care coordination
--- NOTE | 2024-06-13 18:07 | W.EVENT ---
Date of service: 06/13/24 Time of Service: 18:07 Event Note: This morning and afternoon noted more tachycardic with activity, he has been more active than previously. This afternoon increased wet cough and sputum per RN, though patient stated this is normal for him. Just now RN noted O2 sat in 80s, HR again in 120s with activity. I went to evaluate him. He now has diffuse wheezes with less air movement. No rales. Mild increase WOB. O2 sat 99% on 2L, I cut it down to 1 liter. He denied any chest pain, doesn't really feel short of breath. He does have a long history of COPD. No events on tele. Chest XR ordered stat. Dr. Carrington to follow up. I am treating COPD with steroid and azithro. He is getting nebs. I don't think he is fluid overloaded, he continues on a fluid restriction and fluid negative for days. Dr. Carrington aware. Time Spent with Patient Time spent in critical care(minutes): 25 Time Spent Included: Chart review, Time at immediate bedside and Discussing critically ill care with other medical staff
[2024-06-13] MEDS: methylPREDNISolone SUCC 125 MG VIAL IVP (18:44)
[2024-06-13] MEDS: Albuterol/Ipratropium 3 ML UPD VIAL UPD (19:34)
[2024-06-13] MEDS: Insulin Glargine 300 UNITS/3 ML PEN 15 UNITS SC (19:37)
[2024-06-13] MEDS: Magnesium Oxide 400 MG TAB PO (19:37)
[2024-06-13] MEDS: AZITHROMYCIN 500 MG in Normal Saline 250 ML 250 MG IVPB (20:32)
[2024-06-14] VITALS (9 sets, daily range): BP systolic 137–157; BP diastolic 56–82; PULSE 82–99; RESP 2–20; TEMP 36.5–37.4; O2SAT 92–96
[2024-06-14] MEDS: Albuterol/Ipratropium 3 ML UPD VIAL UPD ×2 (01:23→06:33)
[2024-06-14] MEDS: methylPREDNISolone SUCC 125 MG VIAL 80 MG IVP ×2 (02:29→09:27)
[2024-06-14] MEDS: Normal Saline Flush 10 ML SYR IVP ×3 (02:40→09:27)
[2024-06-14 07:47] LABS: Abs Immature Grans 0.04 10^3/uL (0.0-0.06); Absolute Basophil Count 0.01 10^3/uL (0.0-0.2); Absolute Monocyte Count 0.04 10^3/uL (0.1-0.8); Absolute Neutrophil Count 5.22 10^3/uL (1.2-6.7); Basophils % 0.2 %; HCT 28.3 % (40.0-50.0); Immature Grans % 0.7 %; Lymphocytes % 10.2 %; MCH 28.7 pg (27.0-33.0); MCHC 31.8 % (32.0-36.0); MCV 90 fL (80-95); MPV 10.5 fL (8.0-11.0); Monocytes % 0.7 %; Neutrophils % 88.2 %; Platelet Count 369 10^3/uL (130-400); RBC 3.14 10^6/uL (4.36-5.78); RDW 15.8 % (11.8-14.1); WBC 5.91 10^3/uL (4.4-10.8)
[2024-06-14 07:54] LABS: Anion Gap 8.4 mmol/L (3-11); CO2 32.6 mmol/L (21.0-32.0); CREATININE 3.2 mg/dL (0.70-1.30); Calcium 9.6 mg/dL (8.5-10.1); Chloride 97 mmol/L (98-107); Estimated GFR 20.05 (mL/min/1.73m2); Glucose 239 mg/dL (74-106); Potassium 4.1 mmol/L (3.5-5.1); Sodium 138 mmol/L (136-145)
[2024-06-14 08:00] LABS: BUN 119 mg/dL (7-18)
[2024-06-14] MEDS: Potassium Chloride Liquid 20 MEQ PKT 10 MEQ PO (08:01)
[2024-06-14] MEDS: Cyanocobalamin 500 MCG TAB 1000 MCG PO (08:02)
[2024-06-14] MEDS: Folic Acid 1 MG TAB PO (08:02)
[2024-06-14] MEDS: Atorvastatin 40 MG TAB PO (08:03)
[2024-06-14] MEDS: Magnesium Oxide 400 MG TAB PO (08:03)
[2024-06-14] MEDS: Zinc Sulfate 220 MG TAB PO (08:03)
[2024-06-14] MEDS: Prenatal Multivitamin w/CA,FE TAB 1 TAB PO (08:03)
[2024-06-14] MEDS: Furosemide 80 MG TAB PO (08:03)
[2024-06-14] MEDS: Lisinopril 5 MG TAB PO (08:04)
[2024-06-14] MEDS: Pantoprazole 40 MG TABCR PO (08:04)
[2024-06-14] MEDS: Sucralfate 1 GM TAB PO ×2 (08:04→11:23)
[2024-06-14] MEDS: dilTIAZem CD 120 MG CAPCR 240 MG PO (08:05)
[2024-06-14] MEDS: Carvedilol 12.5 MG TAB 25 MG PO (08:05)
[2024-06-14] MEDS: Insulin Aspart 300 UNITS/3 ML PEN SC ×2 (08:07→11:26)
[2024-06-14] MEDS: Protein Nutritional Supplement 16 GM 1 OUNCE PACKET PO (08:07)
[2024-06-14 08:52] LABS: Lab Add On Test DONE
[2024-06-14 09:04] LABS: C-Reactive Protein 3.53 mg/dL (<or=0.5)
--- NOTE | 2024-06-14 10:20 | PDOC.CMDIS ---
Date of service: 06/14/24 Time of Service: 10:20 LACE Index Scoring Tool Questions: Length of Stay (in days): 7 - 13 Was the patient admitted via the E.D.?: Yes Comorbidities: Diabetes w/o Complication and Liver or Renal Disease E.D. Visits: 3 Answers: Total Score: 16 Risk of Readmission: High Risk Care Management Discharge Plan Reason for Hospitalization: GI Bleed, renal failure Discharge Plan: Jossy is discharged back to [facility] where is has been receiving STR. Jossy agrees to follow up with facility/community providers and his discharge plan of care as instructed. RCT w/c van provided transportation Patient/Family Education Needs: Review discharge instructions and plan to follow up with facility/community providers. Discuss ask me three. Services Needed at Discharge: Intermediate Facility (Coordinated by CM) and Transportation (Coordinated by CM) SDOH Health Related Social Needs: Health related social needs risk of homeless Health related social needs: housing instability, housed, with risk of homelessness(Z59.811)
[2024-06-14] MEDS: predniSONE 20 MG TAB 40 MG PO (11:23)
--- NOTE | 2024-06-14 12:11 | NUR.NOTE ---
Nursing Note: Attempted to call report to [facility]. Nurse asked if she could call back after lunch.
--- NOTE | 2024-06-14 12:42 | NUR.NOTE ---
Nursing Note: Report called to [facility] at this time, to JACKIE Pinto. All questions answered.
--- NOTE | 2024-06-14 12:45 | PT.INTREAT ---
Date of service: 06/14/24 Time of Service: 11:00 PT Notes Visit Reasons: GI bleed/ Renal Failure Inpatient Physical Therapy Treatment Note [facility] Date: 06/14/2024 PRECAUTIONS: Fall, skin breakdown, Activities as tolerated SUBJECTIVE: Just wants to get two walks to the nurses station today. Not interested in going to the SNF, wants to go home. Did need to use commode for BM between walks to nurses station today. OBJECTIVE: ? PAIN: Not complaining of pain. Therapeutic Activities ([id number] - 25 minutes): Direct one-on-one instruction in dynamic activities to improve functional performance. ?? Bed Mobility/Transfers: Supine-sit: stand by assist Sit-supine: stand by assist Gait: Able to ambulate 30 feet x 2 of level surface ambulation using bariatric standard walker, with bedside recliner following for safety. Posture now more erect. Patient was able to efficiently distribute weight with walker with B LE for safety. Stand by assist given, but no LOB noted. Did have BM while sitting on commode between walks. Did except assist with cleaning post BM. Able to stand with SBA while receiving assistance with this. Resting : HR 90 b/m with O2 reading of 92% Post first walk to nurses station: HR of 99 b/m with O2 reading of 92% Post 2nd walk to nurses station: HR of 110 b/m with O2 reading of 87% Resting in recliner after 2-3 minute rest: HR of 94 b/m with O2 reading of 90%? Held on Therapeutic?exercises today, per patient request. Did review ankle pumps, deep breathing with chest expansion, quad sets and seated marching. Stated he would do them later. Preferred to get more walking time. ? ASSESSMENT:? Did very well with ambulation. Seems very persistent that he wants to return home rather than go to SNF. Indicated he has multiple family and friends to help him if he calls. PLAN: Continue to work on independence with transfers and strengthening for ADL function until medically cleared for discharge from hospital. TREATMENT CODE/TIME: [id number] x 2, 11:00 to 11:25 (25')
--- NOTE | 2024-06-14 12:56 | W.PM.DS.N ---
Date of service: 06/14/24 Time of Service: 12:56 DS: Diagnosis Discharge Diagnosis (1) Anemia: Status: Chronic (2) Duodenal ulcer: Status: Acute (3) CHF (congestive heart failure): (4) Pulmonary hypertension: Status: Acute (5) Ulcer of buttock: Status: Acute (6) Acute renal failure: Status: Inactive (7) Atrial fibrillation with RVR: Status: Acute Asessment and Plan: now rate controlled (8) Acute head trauma: Status: Acute (9) Diabetes mellitus type 2 in obese: Status: Acute (10) CKD (chronic kidney disease) stage 3, GFR 30-59 ml/min: Status: Chronic (11) Hyperhomocysteinemia: Status: Acute Discharge Plan Disposition Patient Disposition: [facility] Facility(SNF) Condition: Fair Discharge Details Reason For Visit: GI bleed/ Renal Failure Admit Date/Time: 06/06/24 22:59 Admit Provider: Rodriguez Anderson Attending Provider: Rodriguez Anderson Primary Care Provider: Pepe Bill Hospital Course Hospital Course: 69 yo M with history of atrial fibrillation on rivaroxaban, recent admission for septic shock from an infected foot wound 05/09/24 necessitating right toe amputation, complicated by a bleeding duodenal ulcer and acute on chornic renal insufficiency who presented to [facility] 06/[address] [facility] with bloody stools. His initial hgb was 6.3. He was admitted for transfusions and monitoring, initially in the ICU. He received a total of 3 units PRBC and his bleeding stopped. CT A/P was not revealing. His hgb stabilized in the mid 8s over the last 5 days of admission and was 9 the morning of discharge. PPI and carafate for the duodenal ulcer was continued, repeat endoscopy was not done. His oral anticoagulation was not resumed at the time of discharge. He was seen by Dr. Goldman from surgery who did not think immediate endoscopy was warrented. Plan was [place] [facility] [place]. Some superficial bleeding from stage 2 pressure ulcers of the buttocks was noted, and these improved with offloading with a therapeutic bed and skin care. Anal fissure was noted without active bleeding. Consideration can be given for resuming anticoagulation for stroke risk on follow up with PCP, versus alternative such as [facility]. He was being treated with diltizem and rivaroxaban at the time of admission, which is a combination associated with higher bleeding risk. Diltiazem was discontinued and carvedilol was continued at 25mg BID, with his pulses in the 80s-90s. Once he became more active his pulse went as high as 180 with activity so diltiazem was restarted. At 240mg his pulse was in the 50s so we reduced the dose to 180mg. If rivaroxaban is resumed, the interaction with diltiazem must be considered. He was taking 15mg daily dose when he was admitted here with the bleed. He was quite edematous on admission and was diuresed with IV furosemide. He was on a fluid restriction and he was over 20 liters down per I/Os with significant clinical improvement in his lower extremity edema. POCUS echocardiography was done, which showed preserved LV and RV function but RV dilation suggesting pulmonary HTN, though we did not get a tricuspid regurgitant velocity to formally measure. He has known KATIA that is untreated, and is not interested in treatment. He did get overnight oxygen intermitently. His BUN was trending up, even after desecalating diuresis to 80mg BID orally. He was change to 80mg daily upon discharge. His figueroa catheter was removed on the morning of discharge. Retention was not noted, but he should be monitored to make sure he is urinating. His creatinine improved despite the diuresis and leveled out in the low 3s. This appears to be his baseline since his episode of sepsis in April of 2024. Lisinopril was resumed at 5mg. He may benefit from SGLT2i for CKD and HFpEF. Due to borderline eGFR this was deferred at the time of discharge. On 06/13 his oxygen saturation was found to be in the 80s and he was wheezing on exam. CXR did not show any new findings. He felt better after albuterol was changed to albuterol ipratropium nebs and he was started on steroids. He should fisish 5 days of prednisone 40mg and azithromycin for COPD exacerbation. His oxygen should be maintained above 87%, with goal 88-92% if he is on supplemental oxygen for COPD. His A1c was 6.4%, recent A1[place] [facility] 5.9%. These numbers are difficult to interpret due to blood loss and transfusion. His blood sugars were in the low 100s, but did increase with the steroid. He was maintained on his GLP-1 and insulin. His goal A1c should be 7-8%, so insulin could be cut in the future. He was seen by nutrition and supplementation of protein and vitamins was recommended. His homocysteine and methylmelonic acid were high, so B12 and folate were prescribed at high doses. His CRP had been increasing since his [place] [facility] [place], but went down during his hospitalization here, from 15 to 3.5, despite not being an any antibiotics until azithro was given for COPD his last day. He fell during transport 06/03 on the left side of his head. CT was negative at that visit and he continued to receive local wound care. \ BMP and CBC ordered for 3 days as outpatient Home Meds and New Rx's Prescriptions: New ipratropium-albuterol 0.5 mg-3 mg(2.5 mg base)/3 mL Solution For Nebulization 3 ml UPD Q6H Qty: 0 0RF azithromycin 250 mg Tablet 250 mg PO Q24H 4 Days Qty: 0 0RF zinc oxide 20 % Ointment 1 applic topical BID PRN PRNQty: 0 0RF clotrimazole 1 % Cream 1 applic topical BID PRN PRNQty: 0 0RF vits A and D-white pet-lanolin Ointment 1 applic topical BID PRN PRNQty: 100 0RF cyanocobalamin (vitamin B-12) [Vitamin B-12] 500 mcg Tablet 1,000 mcg PO DAILY Qty: 0 0RF diltiazem HCl 180 mg Capsule,Extended Release 24hr 180 mg PO QAM Qty: 0 0RF docusate sodium [Colace] 100 mg Capsule 100 mg PO TID PRN PRNQty: 0 0RF dextrose [Glutose-15] 40 % Gel 1 applic PO DIRECTED PRNQty: 30 0RF furosemide 80 mg Tablet 80 mg PO DAILY Qty: 0 0RF folic acid 1 mg Tablet 1 mg PO DAILY Qty: 0 0RF polyethylene glycol 3350 17 gram Powder In Packet 17 g PO DAILY PRN PRN (Reason: Constipation) Qty: 0 0RF Phlexy-Vits 15 mg- 700 mcg Powder In Packet 1 packet PO TID Qty: 90 0RF sucralfate 1 gram Tablet 1 g PO AC & HS Qty: 0 0RF zinc sulfate [Zinc-220] 50 mg zinc (220 mg) Capsule 220 mg PO DAILY Qty: 90 0RF prednisone 20 mg tablet 40 mg PO DAILY 3 Days Qty: 6 0RF Rx Instructions: due 9/1 AM pantoprazole 40 mg tablet,delayed release (DR/EC) 40 mg PO BID Qty: 60 0RF Continued acetaminophen 500 mg tablet 500 mg PO Q6H PRN multivitamin [Daily Vitamin] 1 EACH tablet 1 ea PO DAILY lisinopril 5 mg tablet 5 mg PO DAILY insulin glargine [Lantus Solostar U-100 Insulin] 100 unit/mL (3 mL) insulin pen 15 unit subcut QPM atorvastatin 40 mg tablet 40 mg PO DAILY insulin lispro [Humalog KwikPen Insulin] 100 unit/mL insulin pen 8 unit subcut TID carvedilol 25 mg tablet 25 mg PO BID Rx Instructions: must administer with a meal/food liraglutide 0.6 mg/0.1 mL (18 mg/3 mL) pen injector 1.2 mg subcut DAILY magnesium oxide 400 MG tablet 400 mg PO BID Qty: 60 0RF (DME) blood-glucose meter [Blood Glucose Monitoring] Kit See Rx Instructions .ROUTE .MEDSUPPLY Qty: 1 0RF Rx Instructions: ac and hs (DME) lancets-blood glucose strips 30 gauge combo pack See Rx Instructions .ROUTE .MEDSUPPLY Qty: 200 0RF Rx Instructions: ac and hs Discontinued Xarelto 15 MG tablet 15 mg PO DAILY Qty: 90 Patient Comments: on hold from 06/03 diltiazem HCl 240 mg capsule,extended release 24 hr 240 mg PO DAILY Patient Comments: TAKE ONE CAPSULE BY MOUTH EVERY DAY furosemide 40 mg tablet 40 mg PO BID Patient Comments: TAKE ONE TABLET BY MOUTH TWICE A DAY Discharge Instructions Activity:: Activity as Tolerated Equipment/Supplies:: Walker Diet:: Carb Counting Discharge Orders Discharge Orders: Discharge Order (Routine); Ordered 06/14/24 Ordered By: Juan José Padilla Other Ambulatory Orders: Basic Metabolic Panel (Routine) Timeframe: 3 Days Facility: [facility] - Location: Laboratory Outpatient - [place] Ordered By: Juan José Padilla Complete Blood Count w/Diff (Routine) Timeframe: 3 Days Facility: [facility] - Location: Laboratory Outpatient - [facility] Ordered By: Juan José Padilla Discharge Data Discharge Date/Time-TO BE ENTERED AT DEPARTURE: 06/14/24 12:49 DS: Summary Time Spent with Patient providing and/or coordinating discharge services: Greater than 30 minutes Status at Discharge Functional status at discharge: uses cane/walker Overall status at discharge: patient is progressing back to baseline Mental Status: mental status grossly normal Speech and Movement: speech and movement normal Mood: congruent mood Affect: normal affect Quality:SDOH Health Related Social Needs: Health related social needs risk of homeless Exam Narrative Exam Narrative: Older gentleman sitting up in chair, no acute distress, AOx4. Heart irregularly irregular, no murmur, lungs clear breath sounds, better air movement throughout. abdomen obese, soft, non-tender, non-distended, +2 bilateral pitting edema and signs of chronic edema to LE with bandage over right second toe. buttocks/anal area not visualized today. Psych Mental Status: mental status grossly normal Speech and Movement: speech and movement normal Mood: congruent mood Affect: normal affect DS: Data Vitals/I&O Vitals and I&O: Vital Signs Temperature 36.5 C 06/14/24 11:20 Temperature Source Tympanic 06/14/24 11:20 Pulse 99 H 06/14/24 11:20 Pulse Rhythm Irregular 06/13/24 20:10 Pulse 104 H 06/11/24 11:46 Respiratory Rate 16 06/14/24 11:20 Respiratory Effort Normal 06/13/24 20:10 Respiratory Depth Normal 06/13/24 20:10 Respiratory Pattern Normal 06/13/24 20:10 Blood Pressure 137/56 L 06/14/24 11:20 Blood Pressure Mean 84 06/11/24 11:46 Blood Pressure Position Left Lateral 06/09/24 04:15 Pulse Oximetry 92 06/14/24 11:20 Oxygen Delivery Method Room Air 06/14/24 11:20 Oxygen Flow Rate 0 06/14/24 11:20 Fraction of Inspired Oxygen (FIO2) 95 06/13/24 08:48 Pain Level 0 06/14/24 07:36 Comment pt continues to refuse CPAP. oxygen titrated to 2L/min 06/14/24 00:01 Comment room air 06/09/24 13:03 Intake & Output 06/13/24 06/14/24 06/14/24 23:59 11:59 23:59 Intake Total 1070 / 1760 460 / 460 Output Total 800 / 2200 1450 / 1950 / 1950 Balance 270 / -440 -990 / -1490 -500 / -1490 Weight 168.963 kg Intake: IV 250 / 250 Oral 820 / 1510 460 / 460 Output: Urine 800 / 2200 1450 / 1950 500 / 1950 Other: Urine Color Yellow Yellow Urine Appearance Clear Clear Comment shift total [id number] Stool Size Moderate Stool Characteristics Formed Brown Data Completed and Pending Labs on day of discharge: Labs from last 24 hours 06/14/24 06:52 WBC 5.91 RBC 3.14 L Hgb 9.0 L Hct 28.3 L MCV 90 MCH 28.7 MCHC 31.8 L RDW 15.8 H Plt Count 369 MPV 10.5 Immature Gran % 0.7 Neutrophils % 88.2 Lymphocytes % 10.2 Monocytes % 0.7 Eosinophils % 0.0 Basophils % 0.2 Nucleated RBC % 0.0 Absolute Neutrophils 5.22 Absolute Lymphocytes 0.60 L Absolute Monocytes 0.04 L Absolute Eosinophils 0.00 Absolute Basophils 0.01 Sodium 138 Potassium 4.1 Chloride 97 L Carbon Dioxide 32.6 H Anion Gap 8.4 BUN 119 H* Creatinine 3.2 H Est GFR (CKD-EPI 2020) 20.05 Glucose 239 H Calcium 9.6 C-Reactive Protein 3.53 H Add-On Test Request DONE FORMERLY [facility] All Active Problems (Updated 06/13/24 @ 17:42 by Juan José Padilla) Hyperhomocysteinemia (Acute) Ulcer of buttock (Acute) Bleeding hemorrhoid (Acute) Found to have a small hemorrhoid on rectal 06/06/2024. Duodenal ulcer (Acute) Diagnosed at [facility] 05/09/2024. On PPI and Carafate. Hematochezia (Acute) Acute head trauma (Acute) Fell from [facility] on 06/03/2024. Ecchymosis around the left eye and forehead. Anemia (Chronic) Overweight (Acute 04/08/12) CKD (chronic kidney disease) stage 3, GFR 30-59 ml/min (Chronic 08/28/14) 07/2014 US R renal cyst otherwise NL Diabetes mellitus type 2 in obese (Acute) DVT prophylaxis (Acute) Pulmonary hypertension (Acute) Atrial fibrillation with RVR (Acute) Medical History (Updated 06/13/24 @ 17:42 by Juan José Padilla) Laceration of skin of face Fell from [facility] 06/03/2024 CKD (chronic kidney disease) Right carpal tunnel syndrome Cubital tunnel syndrome, bilateral Bilateral carpal tunnel syndrome COPD (chronic obstructive pulmonary disease) Type 2 diabetes mellitus Onychodystrophy Chronic back pain Edema Physical deconditioning Subjective pulsatile tinnitus Carpal tunnel syndrome Osteopenia (06/02/13) Male erectile disorder (06/02/13) 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) 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) Atrial fibrillation Acute on chronic diastolic CHF (congestive heart failure), NYHA class 1 PAD (peripheral artery disease) Acute kidney injury Bacteremia 05/09/2024 Discharge planning issues CHF (congestive heart failure) Cellulitis broken rt thumb (10/10/16) Vitamin D deficiency Dilated aortic root Atrial fibrillation Anxiety Essential hypertension Diverticulosis Spondylosis of lumbar region without myelopathy or radiculopathy Right lumbar radiculitis HTN (hypertension) Cellulitis of right leg 05/09/2024 Surgical History (Updated 06/06/24 @ 23:15 by Rodriguez Anderson MD) Right knee surgery after injury Colonoscopy - IV Sedation (01/15/15) Dr Templeton H/O surgical procedure a. Umbilical herniorrhaphy b. Tonsillectomy Family History Grandfather Diabetes Grandmother Diabetes Social History Smoking/Tobacco Use Status: Former Tobacco Use Smoking risk assessment performed?: Yes Alcohol Intake: current Alcohol Intake frequency: a few times a week Alcohol type: beer Drug use: Rarely Substance use type: marijuana Housing: other Do you feel safe at home: Yes Do you feel safe in your relationship?: Yes Time Spent with Patient Time Spent with Patient: 45-69 minutes Time was spent: preparing to see the patient(eg.review tests), obtaining and/or reviewing separately otained hiistory, ordering medications,tests, procedures, referring, communicating with other health day care center director, indepentently interpreting results, counseling the patient and care coordination
== END 2024-06-14 12:49 | disposition skilled nursing facility (03) | DRG 377 ==
LOC: ER 23:10 → ICU 23:53 → MS 06-11 14:50
PROVIDERS: Family Medicine; Internal Medicine; Admitting Provider Family Medicine; Emergency Provider Emergency Medicine; PCP Physician Assistant; Visit Provider Family Medicine
DX: K26.4 Chronic or unspecified duodenal ulcer with hemorrhage (principal); I50.33 Acute on chronic diastolic (congestive) heart failure; N17.9 Acute kidney failure, unspecified; Z68.42 Body mass index [BMI] 45.0-49.9, adult; E72.11 Homocystinuria; I13.0 Hypertensive heart and chronic kidney disease with heart failure and stage 1 through stage 4 chronic kidney disease, or unspecified chronic kidney disease; D62 Acute posthemorrhagic anemia; I48.91 Unspecified atrial fibrillation; I27.20 Pulmonary hypertension, unspecified; N18.30 Chronic kidney disease, stage 3 unspecified; E66.9 Obesity, unspecified; K64.9 Unspecified hemorrhoids; W06.XXXD Fall from bed, subsequent encounter; S00.83XD Contusion of other part of head, subsequent encounter; S00.12XD Contusion of left eyelid and periocular area, subsequent encounter; I73.9 Peripheral vascular disease, unspecified; F41.9 Anxiety disorder, unspecified; E55.9 Vitamin D deficiency, unspecified; L89.322 Pressure ulcer of left buttock, stage 2; L89.311 Pressure ulcer of right buttock, stage 1; E11.22 Type 2 diabetes mellitus with diabetic chronic kidney disease; G47.33 Obstructive sleep apnea (adult) (pediatric)
CPT/HCPCS: 00123; 36415; 36430; 36592; 51702; 80048; 80053; 80186; 83090; 85027; 86850; 86900; 86901; 86920; 87637; 87641; 93005; 93308; 96374; 96376; 97110; 97112; 97162; 97530; 99222; 99231; 99291; 71045; 74176; 82607; 82746; 83036; 83605; 83735; 83880; 84100; 84484; 85014; 85018; 85025; 85610; 86140; 93010; 94640; 94667; 94668; 94760; 99233; 99239; J0456; J1205; J1815; J1940; J2003; J2919; J3475; J3480; J7512; J7613; J7620; P9016

== ENCOUNTER 2024-06-19 16:30 | Outpatient (REF) | payer MEDICARE, SELFPAY ==
--- OUTSIDE RECORDS SUMMARY | 2024-06-19 16:31 | XMS_ITS | Referral Summary ---
Author Organization [facility] Address [address] [place] [address] Care Team Providers Care Seed Potato Arranger Name Role Phone Cruzito Hager MD Primary Care Provider U navailable Encounters Date Type Department Care Team Description 06/09/2024 Lab Requisition [facility] Pathology & Laboratory [address] [address] Outr Resulting Lab, Provider 06/06/2024 Travel 06/06/2024 20:16 EDT - 06/06/2024 23:59 EDT Hospital Encounter [facility] [place] Discharge Disposition: Home or Self Care 06/06/2024 20:16 EDT - 06/06/2024 23:59 EDT Hospital Encounter [facility] [place] Discharge Disposition: Home or Self Care 06/06/2024 Telephone [facility] [address] [place] [id number] Kaya Swanson MD Discuss Possible Transfer (/) 06/04/2024 Lab Requisition [facility] Pathology & Laboratory [address] [address] Outr Resulting Lab, Provider 06/04/2024 Lab Requisition [facility] Pathology & Laboratory [address] [address] Outr Resulting Lab, Provider from Last 3 [...] Procedure Name Priority Date/Time Associated Diagnosis Comments HOMOCYSTEINE Routine 06/09/2024 5:44 EDT XR OUTSIDE IMAGES CHEST Routine 06/06/2024 20:[address] OUTSIDE IMAGES ABDOMEN PELVIS Routine 06/06/2024 20:16 EDT HEPATITIS B SURFACE ANTIGEN Routine 06/03/2024 15:55 EDT HEPATITIS C AB W REFLEX TO HCV RNA BY PCR Routine 06/03/2024 15:55 EDT HIV 1/2 ANTIGEN AND ANTIBODY, 4TH GENERATION Routine 06/03/2024 15:55 EDT from Last 3 Months Results * (ABNORMAL) HOMOCYSTEINE (06/09/2024 5:44 EDT) Homocysteine 19.9(H) 5.0 - 13.9 umol/L 06/09/2024 18:48 EDT [facility] Comment:Results may be false ly elevated if sample is not collected on ice or is not removed from cells within 1 hour of collection. Blood VENOUS BLOOD / Unknown 06/09/2024 5:44 EDT 06/09/2024 17:11 EDT Narrative [facility] - 06/09/2024 18:48 EDT Reference range may not apply to non-fasting samples. ??It is not recommended that EDTA plasma and serum from the same patient be used interchangeably. ??Serum concentrations have been observed to be up to 10% higher than EDTA plasma. Reference range may not apply to serum results. Provider Outr Resulting Lab CHEMISTRY & BLOOD GAS ORDERABLES Performing Organization Address [facility] Co de Phone Number [facility] [address] [place] [address] * XR OUTSIDE IMAGES CHEST (06/06/2024 20:17 EDT) Narrative 06/06/2024 20:17 EDT This is a non-reportable exam. Provider Unknown MD IMG OTHER IMAGING OR DERABLES * CT OUTSIDE IMAGES ABDOMEN PELVIS (06/06/2024 20:16 EDT) Narrative 06/06/2024 20:16 EDT This is a non-reportable exam. Provider Unknown MD IMG OTHER IMAGING OR DERABLES * HEPATITIS C AB W REFLEX TO HCV RNA BY PCR (06/03/2024 15:55 EDT) Hep C Antibody Negative Negative 06/04/2024 19:27 EDT [facility] Blood VENOUS BLOOD / Unknown 06/03/2024 15:55 EDT 06/04/2024 17:25 EDT Provider Outr Resulting Lab CHEMISTRY & BLOOD GAS ORDERABLES Performing Organization Address [facility] Co de Phone Number [facility] [address], [place] [address] * HEPATITIS B SURFACE ANTIGEN (06/03/2024 15:55 EDT) Hep B Surface Ag Negative Negative 06/04/2024 18:55 EDT [facility] Blood VENOUS BLOOD / Unknown 06/03/2024 15:55 EDT 06/04/2024 17:25 EDT Provider Outr Resulting Lab CHEMISTRY & BLOOD GAS ORDERABLES [facility] [address], [place] [address] * HIV 1/2 ANTIGEN AND ANTIBODY, 4TH GENERATION (06/03/2024 15:55 EDT) [facility] HIV 1 and 2 Antibody/p24 Antigen, 4th Generation Negative Negative 06/04/2024 19:41 EDT [facility] Comment:If acute HIV-1 infec tion is suspected in a high risk patient, submit plasma specimen for HIV-1 RNA quantitation test. Blood VENOUS BLOOD / Unknown 06/03/2024 15:55 EDT 06/04/2024 17:25 EDT Narrative [facility] - 06/04/2024 19:41 EDT Fourth Generation assay performed on the Siemens HALGIaur XPT. Provider Outr Resulting Lab IMMUNOLOGY A ND SEROLOGY ORDERABLES Performing Organization Address [facility]/ZIP Co de Phone Number [facility] [address] [place] [address] from Last 3 Months Care Teams Seed Potato Arranger Relationship Specialty Start Date End Date Cruzito Hager MD PCP - General 06/14/11
--- OUTSIDE RECORDS SUMMARY | 2024-06-19 16:31 | XMS_ITS | Encounter Summary ---
Author Organization [facility] Address [address] [place] [address] Care Team Providers Care Metal Reed Tuner Name Role Phone Cruzito Hager MD Primary Care Provider Lisa chamberlain Encounter Details Date Type Department Care Team (Late st Contact Info) Description 06/09/2024 Lab Requisition [facility] & Laboratory Medicine - [facility] [address] [place] [address] Outr Resulting Lab, Provider Social History Tobacco [...] Diagnosis Comments HOMOCYSTEINE Routine 06/09/2024 5:44 EDT documented in this encounter Results * (ABNORMAL) HOMOCYSTEINE (06/09/2024 5:44 EDT) Homocysteine 19.9(H) 5.0 - 13.9 umol/L 06/09/2024 18:48 EDT [facility] Comment:Results may be false ly elevated if sample is not collected on ice or is not removed from cells within 1 hour of collection. Blood VENOUS BLOOD / Unknown 06/09/2024 5:44 EDT 06/09/2024 17:11 EDT Narrative [facility] - 06/09/2024 18:48 EDT Reference range may not apply to non-fasting samples. ??It is not recommended that EDTA plasma and serum from the same patient be used interchangeably. ??Serum concentrations have been observed to be up to 10% higher than EDTA plasma. Reference range may not apply to serum results. Provider Outr Resulting Lab CHEMISTRY & BLOOD GAS ORDERABLES [facility] [address] [place] [id number] documented in this encounter Visit Diagnoses Not on filedocumented in this encounter Care Teams Metal Reed Tuner Relationship Specialty Start Date End Date Cruzito Hager MD PCP - General 06/14/11 documented as of this encounter
--- OUTSIDE RECORDS SUMMARY | 2024-06-19 16:31 | XMS_ITS | Clinical Summary ---
Author Organization [facility] Address [address] [place] [address] Care Team Providers Care Rides Supervisor Name Role Phone Cruzito Hager MD Primary Care Provider U navailable Encounters Date Type Department Care Team Description 06/09/2024 Lab Requisition [facility] Pathology & Laboratory [facility] [address] [place] [address] Outr Resulting Lab, Provider 06/06/2024 20:16 EDT - 06/06/2024 23:59 EDT Hospital Encounter [facility] [place] Discharge Disposition: Home or Self Care 06/06/2024 20:16 EDT - 06/06/2024 23:59 EDT Hospital Encounter [facility] [place] Discharge Disposition: Home or Self Care 06/06/2024 Travel 06/06/2024 Telephone [facility] [address] [place] [phone] Kaya Swanson MD Discuss Possible Transfer (/) 06/04/2024 Lab Requisition [facility] Pathology & Laboratory [facility] [address] [place] [address] Outr Resulting Lab, Provider 06/04/2024 Lab Requisition [facility] Pathology & Laboratory [address] [address] Outr Resulting Lab, Provider from Last 3 [...] 5.0 - 13.9 umol/L 06/09/2024 18:48 EDT [facility] Comment:Results may be false ly elevated if sample is not collected on ice or is not removed from cells within 1 hour of collection. Blood VENOUS BLOOD / Unknown 06/09/2024 5:44 EDT 06/09/2024 17:11 EDT Narrative [facility] - 06/09/2024 18:48 EDT Reference range may not apply to non-fasting samples. ??It is not recommended that EDTA plasma and serum from the same patient be used interchangeably. ??Serum concentrations have been observed to be up to 10% higher than EDTA plasma. Reference range may not apply to serum results. Provider Outr Resulting Lab CHEMISTRY & BLOOD GAS ORDERABLES [facility] [address] [place] [address] * XR OUTSIDE IMAGES CHEST (06/06/2024 20:17 [...] C Antibody Negative Negative 06/04/2024 19:27 EDT [facility] Blood VENOUS BLOOD / Unknown 06/03/2024 15:55 EDT 06/04/2024 17:25 EDT Provider Outr Resulting Lab CHEMISTRY & BLOOD GAS ORDERABLES [facility] [address] [place] [address] * HEPATITIS B SURFACE ANTIGEN (06/03/2024 15:55 EDT) Hep B Surface Ag Negative Negative 06/04/2024 18:55 EDT [facility] Blood VENOUS BLOOD / Unknown 06/03/2024 15:55 EDT 06/04/2024 17:25 EDT Provider Outr Resulting Lab CHEMISTRY & BLOOD GAS ORDERABLES Performing Organization Address City/[facility]/ZIP Co de Phone Number [facility] [address], [place] [id number] * HIV 1/2 ANTIGEN AND ANTIBODY, 4TH GENERATION (06/03/2024 15:55 EDT) [facility] HIV 1 and 2 Antibody/p24 Antigen, 4th Generation Negative Negative 06/04/2024 19:41 EDT [facility] Comment:If acute HIV-1 infec tion is suspected in a high risk patient, submit plasma specimen for HIV-1 RNA quantitation test. Blood VENOUS BLOOD / Unknown 06/03/2024 15:55 EDT 06/04/2024 17:25 EDT Narrative [facility] - 06/04/2024 19:41 EDT Fourth Generation assay performed on the Siemens Centaur XPT. Provider Outr Resulting Lab IMMUNOLOGY A ND SEROLOGY ORDERABLES [facility] [address], [place] [phone] from Last 3 Months Care Teams Rides Supervisor Relationship Specialty Start Date End Date Cruzito Hager MD PCP - General 06/14/11
--- OUTSIDE RECORDS SUMMARY | 2024-06-19 16:31 | XMS_ITS | Continuity of Care Document ---
Author Organization [place] - [facility] Address [place] [address] Assessment Encounter Date Assessment Date Assessment LastModified by Organization Details LastModified Time 05/30/2024 05/30/2024 The total time devoted to today's encounter, including both the pfcs-ea-gacs time with the patient and/or family/caregi rocio and lxs-bznc-um-f derek time I personally spent is 20 [...] Abnormal Flag Note LastModifiedBy Organization Detail LastModifiedTime 05/09/20 24 2024 x-ray imagi ng repor t Patijose t Name: Jossy Leyva Unit #: [id number] Loc: ER Orderi ng Provid er: Yelena Henley Accoun t #: [id number] Status : PRE ER Primar [...] Caballero M.D. 1810 Transc ribed By: Ada SOTOMAYOR,How sonu 1810 This is privil eged, confid [...] Thank- you. crystal [facility] [address] [place], [address] 05/12/2024 08:01:30 05/09/20 24 2024 vrad repor t Kisha t Name: Jossy Leyva Unit #: [id number] Loc: ER Orderi ng Provid er: Accoun t #: [id number] Status : REG ER Primar y [...] Orderi ng:P.B REMBERTO Castillo MD Access ion#=[id number] Ordere d By: CC: ------ ------ [...] Thank- you. crystal [facility] [address] [place] [place], [address] 05/12/2024 08:01:30 05/09/2005/09/2024 vrad repor t Patien t Name: Jossy Leyva Unit #: [id number] Loc: ER Orderi ng Provid er: Accoun t #: [id number] Status : REG ER Primar y [...] zation : [facility] use at least one of these dose optimi zation techni ques: automa sebastián exposu re contro l; mA and/or kV adjust ment per patien t size (inclu ellyn target ed exams where dose is matche d to clinic al indica tion); or iterat cameron recons tructi on. COMPAR TABITHA: US EXTREM ITY VENOUS BI 9/28/2 020 9:45 AM FINDIN GS: Bones/ joints [...] MD. Orderi ng:PBerlin Castillo MD Access ion#=[id number] Ordere d By: CC: ------ ------ [...] the addres s above. Thank- you. crystal [place] [id number] [place], [address] 05/12/2024 08:01:30 05/10/2005/10/2024 CT imagi ng danielle Beard t Name: Jossy Leyva Unit #: [id number] Loc: ER Orderi ng Provid er: Timothy blake,Yelena n PRASANNA Accoun t #: [id number] Status : DEP ER Primar [...] with the Americ mark eastman of Radiol oggabino (ACR). RADIAT ION OPTIMI ZATION : [facility] use at least one of [...] error, please notify us immedi ately at [phone] and return the origin al report to us at the addres s above. Thank- you. crystal [facility] [address] [place] [place], [address] 05/12/2024 08:01:31 05/11/20 24 05/11/2024 CT imagi ng repor t Patien t Name: Jossy Leyva Unit #: [id number] Loc: ER Orderi ng Provid er: Yelena Henley Accoun t #: [id number] Status : DEP ER Primar [...] hial tree: Patent where visual ized. Pulmon angle parenc hyma: No consol idatio n or [...] error, please notify us immedi ately at [phone] and return the origin al report to us at the addres s above. Thank- you. crystal [facility] [address], [place], [address] 05/12/2024 08:01:31 06/03/2006/03/2024 vrad repor t Patien t Name: Jossy Leyva Unit #: [id number] Loc: ER Orderi ng Provid er: Accoun t #: [id number] Status : REG ER Primar y [...] and device s: There is a right news intern al jugula r centra l venous cathet er presen t within tip [facility] Lungs: There is pulmon angel venous [...] exclud ed. 2. There is a right news intern al jugula r centra l venous cathet er presen t within tip of the cathet er at the [facility] on. 3. There is a probab le small left pleura l effusi on. Dictat ed and Authen ticate d by: Teofilo Torres MD. Orderi ng:Bessie Ch MD Access ion#=[id number] Ordere d By: CC: ------ ------ ------ ------ ------ ------ ------ ------ ------ ------ ------ ------ ---- Dictat ed By: Report s vrad 2052 Transc ribed By: Jeanine Merge 2052 This is privil eged, confid [...] Thank- you. crystal [facility] [address] [place], [address] 06/04/2024 07:27:19 06/03/2006/03/2024 vrad repor jack santiago Name: Jossy Leyva Unit #: [id number] Loc: ER Orderi ng Provid er: Accoun t #: [id number] Status : REG ER Primar y [...] MD. Orderi ng:Bessie Ch MD Access ion#=[id number] Ordere d By: CC: ------ ------ [...] Thank- you. crystal [facility] [address] [place] [place], [address] 06/04/2024 07:27:19 06/04/2006/04/2024 x-ray imagi ng danielle t Kisha t Name: Jossy Leyva Unit #: [id number] Loc: ER Orderi ng Provid er: Jing Srivastava Accbud t #: [id number] Status : DEP ER Primar y Care Provid er: Chanda Walker bimal Date of Exam: Sex: M Admiss [...] SOFT TISSUE S: Unrema rkable . Right news intern al jugula r centra l venous [...] error, please notify us immedi ately at [phone] and return the origin al report to us at the addres s above. Thank- you. crystal [facility] [address] [place], [address] 06/04/2024 09:25:40 06/04/20 24 06/04/2024 CT imagi ng repor t Patien t Name: Jossy Leyva Unit #: [id number] Loc: ER Orderi ng Provid er: Jing Srivastava Accoun t #: [id number] Status : DEP ER Primar [...] [id number] 848 Transc ribed By: Betzy Cordova 49 This is privil eged, confid ential inform ation intend ed only for the provid er named. Any use or distri bution by any person other than this provid er is strict ly prohib ited. If you receiv e this report in error, please notify us immedi camiluis at and return the origin al report to us at the addres s above. Thank- you. crystal [facility] [address], [place], [address] 06/04/2024 09:25:40 06/06/20 24 06/06/2024 CT imagi ng repor t Patien t Name: Jossy Leyva Unit #: [id number] Loc: ER Orderi ng Provid er: Ar Osorio M.D. t #: [id number] Status : REG ER Primar y Care Provid er: Rishi on,[facility] Date of Exam: Sex: M : 1954 [...] create d and review ed. COMPAR TABITHA: CT,NM MPI RESTIN G AND STRESS from [...] absces s. This is nonspe cific. IMPRES YOANDY: 1. Eviden ce of nephro lithia sis [...] Thank- you. crystal [facility] [address] [place] [place], [address] 06/09/2024 07:27:25 06/06/20 24 06/06/2024 x-ray imagi ng repor t Patien t Name: Jossy Leyva Unit #: [id number] Loc: ER Orderi ng Provid er: Ar Osorio M.D. Accoun t #: [id number] Status : REG ER Primar y Care Provid er: Chanda Walker Date of Exam: Sex: M Admiss ion Date: : 1954 Age: 69 Exam(s ) XR CHEST 1V IN DI DEPT EXAM: XR CHEST 1V IN DI DEPT CLINIC AL HISTOR Y: SOB TECHNI QUE: 2D digita l imagin g was perfor med of the chest. One image was obtain ed. An AP view was obtain ed. COMPAR TABITHA: CR,XR XR CHEST 2V PA LATERA L from 2023 FINDIN GS: MEDIAS TINUM: Normal . HEART: Cardio megaly . PULMON ANGEL VASCUL ATURE: Normal . LUNGS: No focal [...] er is in stable positi on. IMPRES YOANDY: Small left pleura l effusi on. Cardio megaly . DATA REPOSI TORY: RADIAT ION DOSE DELIVE RED: Ordere d By: Ar Osorio M.D. CC: [...] Thank- you. crystal [facility] [address] [place], [address] 06/09/2024 07:27:26 06/13/20 24 06/13/2024 x-ray imagi ng repor t Patien t Name: Jossy Leyva Unit #: [id number] Loc: MS Yemi ureña Provid er: UcheJuan José mcguire t #: [id number] Status : ADM IN Primar y Care Provid er: Rishi on,Chanda bimal Date of Exam: Sex: M Admiss ion Date: : 1954 Age: 69 Exam(s ) XR PORTAB LE CHEST AP EXAM: XR PORTAB LE CHEST AP CLINIC AL HISTOR Y: increa sed hypoxi a/SOB TECHNI QUE: 2D digita l imagin g was perfor med. COMPAR TABITHA: CT CT ABDOME N PELVIS WO from 2023 CR XR CHEST 1V IN DI DEPT from 2023 FINDIN GS: Exam is limite d by under penetr ation partic ularly at the lung bases and multip le old overly ing monito ring leads. LUNGS: Clear where visual ized. No pleura l abnorm ality seen. HEART: Enlarg ed. AORTA: Normal diamet er. Calciu m at arch. BONES: Unrema rkable for age. Soft tissue s: Unrema rkable . IMPRES YOANDY: Limite d exam. No acute findin gs. DATA REPOSI TORY: RADIAT ION DOSE DELIVE RED: Ordere d By: Juan José Padilla CC: ------ ------ ------ ------ ------ ------ ------ ------ ------ ------ ------ ------ - Dictat ed By: Sarthak Bhatia 1849 Transc ribed By: Betzy Cordova 1849 This is privil eged, confid ential inform ation intend ed only for the provid er named. Any use or distri bution by any person other than this provid er is strict ly prohib ited. If you receiv e this report in error, please notify us edenilson richards at and return the origin al report to us at the addres s above. Thank- you. crystal [facility] [address], [place], [address] 06/17/2024 09:08:18 Result Notes None recorded. Problems Name Problem SNOMED Code Status Onset Date Resolution Date Notes Provider Name and Address Organization Details Recorded Time Chronic obstruct cameron pulmonar y disease 84055713 Active 201912/15/19 22 - Comments only - Pepe Bill RPA - lungs clear on exam. nonlabor ed. He stopped smoking greater than 10 years ago. Problem Code: J44.9; Problem Code Type: ICD-10; Not Available [facility] 3 05:06:14 Atrial fibrilla tion 09875263 Active 201911/27/19 23 - Comments only - Pepe Bill RPA - Continue s to be rate controll ed. Continue s on Xarelto. We will check a CBC. Problem Code: I48.91; Problem Code Type: ICD-10; Not Available [facility] 3 05:06:14 [facility] l hyperten yoandy 32695436 Active 201911/27/19 23 - Comments only - Pepe Bill RPA - Well controll ed on current medicati on manageme nt. Problem Code: I10; Problem Code Type: ICD-10; Not Available [facility] 3 05:06:14 Type 2 diabetes mellitus without complica tion 530791674 Active 201903/15/20 22 - Comments only - Pepe Bill RPA - Signific ant improvem ent [...] E11.9; Problem Code Type: ICD-10; Not Available [facility] 3 05:06:14 Heart failure 72135141 Active 2019 with preserve d ventricu lar function on 2023 echo. Problem Code: I50.9; Problem Code Type: ICD-10; [address] [place], [address] , [facility]. 4 17:18:09 Peripher al vascular disease 047178743 Active 2019 Problem Code: I73.9; Problem Code Type: ICD-10; Not Available [facility] 3 05:06:14 Screenin g for malignan t neoplasm of prostate Active 201907/26/20 20 - Comments only - Pepe Bill RPA - We will check a PSA Problem Code: Z12.5; Problem Code Type: ICD-10; Not Available [facility] 3 05:06:14 Dystroph ia unguium 19316597 Active 201909/06/20 20 - Comments only - Pepe Bill RPA - Referral has been made to podiatry . He has not heard on this referral yet Problem Code: L60.3; Problem Code Type: ICD-10; Not Available [facility] 3 05:06:15 Pain in thoracic spine 496580282 Active 201908/19/20 20 - Comments only - Pepe Bill RPA - herniate d disk 1997. 2016 MRI with L5-S1 spinal stenosis - subseque nt steroid injectio n and ablation . Problem Code: M54.9; Problem Code Type: ICD-10; Not Available [facility] 3 05:06:15 Edema 900982755 Active 201912/15/19 22 - Comments only - Pepe Bill RPA - improved from a year ago. He restrict s sodium. Complian t with his cardiac meds. No evidence of cellulit is which has been a signific ant issue in past. Problem Code: R60.9; Problem Code Type: ICD-10; Not Available [facility] 3 05:06:15 Malaise 953442884 Active 202101/12/20 22 - Improved - Shaila [...] Code Type: ICD-10; Not Available [facility] 3 05:06:15 Tinnitus 33992548 Active 202101/12/20 22 - Comments only - [...] H93.19; Problem Code Type: ICD-10; Not Available [facility] 3 05:06:15 Carpal tunnel syndrome of right wrist 82896599853 9108 Active 202212/22/19 23 - Comments only - Pepe Bill RPA - confirme d on emg's Problem Code: G56.01; Problem Code Type: ICD-10; Not Available [facility] 3 05:06:15 Cellulit is 844310748 Completed 201901/11/2022 Problem Code: L03.90; Problem Code Type: ICD-10; Not Available [facility] 3 05:06:37 Renal insuffic iency 277682473 Active 2023 PEPE BILL PA-C [address], [place], [address] , [facility]. 4 11:54:52 Acute duodenal ulcer 969812424 Active 2023 Diagnose d at [facility] 04/2024 PEPE BILL PA-C [address], [place], [address] , [facility]. 4 17:13:34 Anemia 722910900 Active 2023 acute likely secondar y to acute blood loss from duodenal ulcer, renal failure, and septic shock 04/2024 PEPE BILL PA-C [address], [place], [address] , [facility] 4 17:16:16 Septic shock 84360755 Active 2023 from leg injury [facility] summer 2023 PEPE BILL PA-C [address], [place], [address] , [facility] 4 17:17:21 Problem Notes None recorded. Medical Equipment None Reported. Medications Name Sig Start Date Stop Date Status Note LastModified by Organization Details LastModified Time furosemid e 40 mg tablet TAKE ONE TABLET BY MOUTH TWICE A DAY active Not Available Not Available No t Available atorvasta tin 40 mg tablet TAKE ONE TABLET BY MOUTH EVERY DAY active Not Available Not Available No t Available carvedilo l 25 mg tablet TAKE ONE TABLET BY MOUTH TWICE A DAY active Not Available Not Available No t Available azithromy dyana 250 mg tablet TAKE 2 TABLETS (500 MG) BY ORAL ROUTE ONCE DAILY FOR 1 DAY THEN 1 TABLET (250 MG) BY ORAL ROUTE ONCE DAILY FOR 4 DAYS 2023 active azithrom ycin 250 mg Tablet 250 mg PO Q24H 4 Days Qty: 0 0RF Not Available Not Available Not Available metoprolo l tartrate 100 mg tablet Take 2 tabs by mouth twice daily 08/04 completed Not Available Not Available Not Available sucralfat e 1 gram tablet Take 1 tablet 4 times a day by oral route as directed . 2023 active sucralfa te 1 gram Tablet 1 g PO AC HS Qty: 0 0RF Not Available Not Available Not Available ibuprofen 200 mg capsule 2 tabs po every 6 hours as needed 2019 active Not Available Not Available Not Avai lable clindamyc in HCl 150 mg capsule Take 1 cap by mouth three times daily X 10 days 11/09 completed Not Available Not Available Not Available diltiazem ER 240 mg capsule,2 4 hr,extend ed release TAKE ONE CAPSULE BY MOUTH EVERY DAY 06/17 completed Dose reduced by half while admitted to [facility] Not Available Not Available Not Available zinc oxide 20 % topical ointment 2023 active zinc oxide 20 % Ointment 1 applic topical BID PRN PRNQty: 0 0RF Not Available Not Available Not Available OneTouch Ultra Test strips TEST THREE TIMES A DAY 2023 active Not Available Not Available Not Avai lable pantopraz ole 40 mg tablet,de layed release Take 1 tablet every day by oral route as directed . 2023 active pantopra zole 40 mg tablet,d elayed release (DR/EC) 40 mg PO BID Qty: 60 0RF Not Available Not Available Not Available Magnesium -Oxide 400 mg tablet Take 1 tab by mouth twice daily 2019 active Not Available Not Available Not Avai lable folic acid 1 mg tablet Take 1 tablet every day by oral route as directed . 2023 active folic acid 1 mg Tablet 1 mg PO DAILY Qty: 0 0RF Not Available Not Available Not Available ammonium lactate 12 % topical cream Apply in eye once a day 12/14 completed Not Available Not Available Not Available cyanocoba froy (vit B-12) 1,000 mcg sublingua l tablet Place 1 tablet every day by sublingu al route as directed . 2023 active cyanocob alamin (vitamin B-12) [Vitamin B-12] 500 mcg Tablet 1,000 mcg PO DAILY Qty: 0 0RF Not Available Not Available Not Available lisinopri l 5 mg tablet TAKE ONE TABLET BY MOUTH EVERY DAY active Not Available Not Available No t Available clotrimaz ole 1 % topical cream APPLY TO THE AFFECTED AND SURROUND ING AREAS OF SKIN BY TOPICAL ROUTE 2 TIMES PER DAY IN THE MORNING AND EVENING 2023 active clotrima zole 1 % Cream 1 applic topical BID PRN PRNQty: 0 0RF Not Available Not Available Not Available docusate sodium 100 mg tablet Take 1 tablet every day by oral route as directed . 2023 active docusate sodium [Colace] 100 mg Capsule 100 mg PO TID PRN PRNQty: 0 0RF Not Available Not Available Not Available DILT-XR 180 mg capsule, extended release Take 1 capsule every day by oral route in the morning. 2023 active diltiaze m HCl 180 mg Capsule, Extended Release 24hr 180 mg PO QAM Qty: 0 0RF Not Available Not Available Not Available OneTouch UltraSoft Lancets Use 1 lancet as directed three times a day 2021 active Not Available Not Available Not Avai lable zinc sulfate 50 mg zinc (220 mg) capsule Take 1 capsule every day by oral route as directed . 2023 active zinc sulfate [Zinc-22 0] 50 mg zinc (220 mg) Capsule 220 mg PO DAILY Qty: 90 0RF Not Available Not Available Not Available Multivita l 1 tablet once a day 2019 active Not Available Not Available Not Avai lable Lantus Solostar U-100 Insulin 100 unit/mL (3 mL) subcutane ous pen INJECT 20 UNITS UNDER THE SKIN EVERY NIGHT active Not Available Not Available No t Available Humalog KwikPen (U-100) Insulin 100 unit/mL subcutane ous INJECT 8 UNITS BEFORE EACH MEAL active Not Available Not Available No t Available vits A and D-white pet-lanol in 2023 active vits A and D-white pet-lano kenneth Ointment 1 applic topical BID PRN PRNQty: 100 0RF Not Available Not Available Not Available Xarelto 15 mg tablet TAKE ONE TABLET BY MOUTH EVERY DAY active Patient directed to Hold this Medicati on until after SNF discharg e and he is seen by his PCP. Not Available Not Available Not Available ipratropi um 0.5 mg-albute rol 2.5 mg/2.5 mL solution for nebulizat ion Inhale 3 mL every 6 hours by inhalati on route as directed . 2023 active ipratrop ium-albu terol 0.5 mg-3 mg(2.5 mg base)/3 mL Solution For Nebuliza tion 3 ml UPD Q6H Qty: 0 0RF Not Available Not Available Not Available Victoza 3-Christo 0.6 mg/0.1 mL (18 mg/3 mL) subcutane ous pen injector Inject 1.2 mg subcutan eously every day active Not Available Not Available No t Available Trulicity 1.5 mg/0.5 mL subcutane ous pen injector Inject 1/2 ml subcutan eously once a week 09/22 completed Not Available Not Available Not Available Trulicity 0.75 mg/0.5 mL subcutane ous pen injector Inject 1/2 ml subcutan eously once a week 01/11 completed Not Available Not Available Not Available magnesium 400 mg (as magnesium oxide) tablet Take 1 tablet twice a day by oral route as directed . 2023 active magnesiu m oxide 400 MG tablet 400 mg PO BID Qty: 60 0RF Not Available Not Available Not Available BD Deneen 2nd Gen Pen Needle 32 gauge x 5/32 USE 1 NEEDLE UNDER THE SKIN FOUR TIMES A DAY active Not Available Not Available No t Available Vitals None Recorded Social History None recorded. Functional Status None recorded. Mental Status None recorded. Family History Nothing Reported Notes:*Problem: father decea sed etoh, diverticulitis, cad mother a-fib Medical History No medical history recorded. Immunizations Vaccine Type Date Status Provider Name and Address Organization Details Recorded Time pneumococcal, unspecified formulation 07/17/2020 completed Not Available [facility] 08/24/2023 05:17:59 Tdap 11/27/2022 completed Not Available [facility] 05:17:59 Influenza, high-dose, quadrivalent, PF 11/27/2022 completed Not Available [facility] 08/24/2023 05:18:00 COVID-19, mRNA, LNP-S, PF, 100 mcg/0.5mL dose or 50 mcg/0.25mL dose 12/10/2020 completed Not Available [facility] 08/24/2023 05:18:00 COVID-19, mRNA, LNP-S, PF, 100 mcg/0.5mL dose or 50 mcg/0.25mL dose 01/07/2021 completed Not Available [facility] 08/24/2023 05:18:00 COVID-19, mRNA, LNP-S, PF, 100 mcg/0.5mL dose or 50 mcg/0.25mL dose 03/15/2022 completed Not Available [facility] 08/24/2023 05:18:00 SARS-COV-2 (COVID-19) vaccine, UNSPECIFIED 09/17/2021 completed Not Available [facility] 08/24/2023 05:18:00 COVID-19, mRNA, LNP-S, bivalent, PF, 30 mcg/0.3 mL dose 11/27/2022 completed Not Available [facility] 08/24/20 05:18:00 pneumococcal polysaccharide PPV23 03/15/2022 completed Not Available [facility] 2022 05:18:00 influenza, unspecified formulation 07/17/2020 completed Not Available [facility] 08/24/2023 05:18:00 Past Encounters Encounter ID Performer Location Encounter Start Date Encounter Closed Date Diagnosis/Indication Diagnosis SNOMED-CT Code Diagnosis ICD10 Code [id number] PEPE BILL PA-C [facility] [address] [facility] [place] [address] 05/27/2024 16:09:14 05/31/2024 04:05:12 [id number] PEPE BILL PA-C [facility] [address] [facility] [place] [address] 05/30/2024 10:56:10 05/30/2024 12:20:08 Renal insufficiency 482072649 N28.9 Type 2 bridgette betes mellitus without complication 257672887 E11.9 Health Concerns Section Related Observation LastModified by [...] point. PEPE BILL PA-C [address], [place], [address], [facility]. 05/30/2024 11:55:32
--- OUTSIDE RECORDS SUMMARY | 2024-06-19 16:31 | XMS_ITS | Encounter Summary ---
Author Organization [facility] Address [address] [place] [address] Care Team Providers Care Hospice Physician Name Role Phone Cruzito Hager MD Primary [...] on filedocumented in this encounter Care Teams Hospice Physician Relationship Specialty Start Date End Date Cruzito Hager MD PCP - General 06/14/11 documented as of this encounter
--- OUTSIDE RECORDS SUMMARY | 2024-06-19 16:31 | XMS_ITS | Data Portability ---
Author Organization [place] [facility] Address [place] [address] Assessment Encounter Date Assessment Date Assessment LastModified by Organization Details LastModified Time 05/27/2024 05/27/2024 Unable to reach patient on the phone. No charge for visit. crystal Not available 05/27/2024 17:06:18 05/30/2024 05/30/2024 The total time devoted to today's encounter, including both the resi-wv-hnfy time with the patient and/or family/caregi rocio and tmf-oecz-ln-f derek time I personally spent is 20 [...] (venous) 7.31 7.31-7 .41 normal Not Available [address] [place], [address] 2024 17:59:16 05/09/20 24 2024 VENOU S BLOOD GAS pCO2 (venous) 54 mmHg 41-51 high Not Available Jory [address] [place], [address] 2024 17:59:16 05/09/20 24 2024 VENOU S BLOOD GAS pO2 (venous) 26 mmHg Not Available [address], [address] 2024 17:59:16 05/09/20 24 2024 VENOU S BLOOD GAS TCO2 (venous) 25 mmol/ L 24-29 normal Not Available [address] [place], [address] 2024 17:59:16 05/09/20 24 2024 VENOU S BLOOD GAS HCO3 (venous) 27 mmol/ L 23-28 normal Not Available [address] [place], [address] 2024 17:59:16 05/09/20 24 2024 VENOU S BLOOD GAS BE (venous) 1 mmol/ L -2-3 normal Not Available [address] [place], [address] 2024 17:59:16 05/09/20 24 2024 VENOU S BLOOD GAS O2 sat (venous) 42 % Not Available [address] [place], [address] 2024 17:59:16 05/09/20 24 2024 LACTA TE lactate 2.2 mmol/ L 0.6-1. 4 panic high Criti anurag value LACTA TE repor sebastián to and [facility] at 1757 05/09 by LAB.M OOL Not Available [address] [place], [address] 2024 18:00:16 05/09/20 24 2024 ESR ESR 60 mm/HR 0-20 high Not Available [address] [place], [address] 2024 18:04:16 05/09/20 24 2024 COMPL ETE BLOOD COUNT W/DIF F WBC 33.55 10_3/ uL 4.4-10 .8 panic high Criti naurag value repor sebastián to and readb ack from [facility] , at 1812 05/09 by LAB.I FELISHA Not Available [address] [place], [address] 2024 18:21:18 05/09/20 24 2024 COMPL ETE BLOOD COUNT W/DIF F RBC 3.98 10_6/ uL 4.36-5 .78 low Not Available [address] [place], [address] 2024 18:21:18 05/09/20 24 2024 COMPL ETE BLOOD COUNT W/DIF F HGB 12.2 g/dL 13.5-1 7.5 low Not Available [address] [place], [address] 2024 18:21:18 05/09/20 24 2024 COMPL ETE BLOOD COUNT W/DIF F HCT 37.0 % 40.0-5 0.0 low Not Available [address] [place], [address] 2024 18:21:18 05/09/20 24 2024 COMPL ETE BLOOD COUNT W/DIF F MCV 93 fL 80-95 normal Not Available Jaymie [address] [place], [address] 2024 18:21:18 05/09/20 24 2024 COMPL ETE BLOOD COUNT W/DIF F MCH 30.7 pg 27.0-3 3.0 normal Not Available [address] [place], [address] 2024 18:21:18 05/09/20 24 2024 COMPL ETE BLOOD COUNT W/DIF F MCHC 33.0 % 32.0-3 6.0 normal Not Available [address] [place], [address] 2024 18:21:18 05/09/20 24 2024 COMPL ETE BLOOD COUNT W/DIF F RDW 15.3 % 11.8-1 4.1 high Not Available [address] [place], [address] 2024 18:21:18 05/09/20 24 2024 COMPL ETE BLOOD COUNT W/DIF F platelet count 145 10_3/ uL 130-40 0 normal Not Available [address] [place], [address] 2024 18:21:18 05/09/20 24 2024 COMPL ETE BLOOD COUNT W/DIF F MPV 12.4 fL 8.0-11 .0 high Not Available [address] [place], [address] 2024 18:21:18 05/09/20 24 2024 COMPL ETE BLOOD COUNT W/DIF F neutrophils % 87.0 % Not Available [address] [place], [address] 2024 18:21:18 05/09/20 24 2024 COMPL ETE BLOOD COUNT W/DIF F bands % 2 % Not Available [address] [place], [address] 2024 18:21:18 05/09/20 24 2024 COMPL ETE BLOOD COUNT W/DIF F lymphocytes % 3.0 % Not Available [address] [place], [address] 2024 18:21:18 05/09/20 24 2024 COMPL ETE BLOOD COUNT W/DIF F monocytes % 8.0 % Not Available [address] [facility] [place], [address] 2024 18:21:18 05/09/20 24 2024 COMPL ETE BLOOD COUNT W/DIF F eosinophils % 0.0 % Not Available [address] [place], [address] 2024 18:21:18 05/09/20 24 2024 COMPL ETE BLOOD COUNT W/DIF F basophils % 0.0 % Not Available [address] [place], [address] 2024 18:21:18 05/09/20 24 2024 COMPL ETE BLOOD COUNT W/DIF F immature grans % 0.0 % Not Available [address] [place], [address] 2024 18:21:18 05/09/20 24 2024 COMPL ETE BLOOD COUNT W/DIF F nucleated RBC 0.0 % 0.0-0. 3 normal Not Available [address] [place], [address] 2024 18:21:18 05/09/20 24 2024 COMPL ETE BLOOD COUNT W/DIF F absolute neutrophil count 29.86 10_3/ uL 1.2-6. 7 high Not Available [address] [place], [address] 2024 18:21:18 05/09/20 24 2024 COMPL ETE BLOOD COUNT W/DIF F absolute lymphocyte count 1.01 10_3/ uL 1.2-3. 4 low Not Available [address] [place], [address] 2024 18:21:18 05/09/20 24 2024 COMPL ETE BLOOD COUNT W/DIF F absolute monocyte count 2.68 10_3/ uL 0.1-0. 8 high Not Available [address] [place], [address] 2024 18:21:18 05/09/20 24 2024 COMPL ETE BLOOD COUNT W/DIF F absolute eosinophil count 0.00 10_3/ uL 0.0-0. 7 normal Not Available [address] [place], [address] 2024 18:21:18 05/09/20 24 2024 COMPL ETE BLOOD COUNT W/DIF F absolute basophil count 0.00 10_3/ uL 0.0-0. 2 normal Not Available [address] [place], [address] 2024 18:21:18 05/09/20 24 2024 COMPL ETE BLOOD COUNT W/DIF F diff comment Manual Differ ential Not Available Wilberto avery [address] [place], [address] 2024 18:21:18 05/09/20 24 2024 COMPL ETE BLOOD COUNT W/DIF F RBC morphology Normal Not Available [address] [place], [address] 2024 18:21:18 05/09/20 24 2024 COMPR EHENS CHARLES METAB OLIC PANEL calcium 9.1 mg/dL 8.5-10 .1 normal Not Available [address] [place], [address] 2024 18:25:19 05/09/20 24 2024 COMPR EHENS CHARLES METAB OLIC PANEL glucose 148 mg/dL 74-106 high Not Available Jaymie harris [address] [place], [address] 2024 18:25:19 05/09/20 24 2024 COMPR EHENS CHARLES METAB OLIC PANEL BUN 75 mg/dL 7-18 high Not Available Jaymie harris [address] [place], [address] 2024 18:25:19 05/09/20 24 2024 COMPR EHENS CHARLES METAB OLIC PANEL creatinine 4.7 mg/dL 0.70-1 .30 panic high Criti anurag value CREAT ININE repor sebastián to and readb ack from [facility] at 1821 05/09 by SILVINA jones ied by sanjuanita santiago otoniel sis Not Available [address] [place], [address] 2024 18:25:19 05/09/20 24 2024 COMPR EHENS [...] young er-ag ed adult s. Not Available [address] [place], [address] 2024 18:25:19 05/09/20 24 2024 COMPR EHENS CHARLES METAB OLIC PANEL total protein 8.3 g/dL 6.4-8. 2 high Not Available [address] [place], [address] 2024 18:25:19 05/09/20 24 2024 COMPR EHENS CHARLES METAB OLIC PANEL albumin 2.9 g/dL 3.4-5. 0 low Not Available [address] [place], [address] 2024 18:25:19 05/09/20 24 2024 COMPR EHENS CHARLES METAB OLIC PANEL bilirubin, total 0.73 mg/dL 0.2-1. 0 normal Not Available [address] [place], [address] 2024 18:25:19 05/09/20 24 2024 COMPR EHENS CHARLES METAB OLIC PANEL alk phos 38 U/L 46-116 low Not Available [address] [place], [address] 2024 18:25:19 05/09/20 24 2024 COMPR EHENS CHARLES METAB OLIC PANEL sodium 130 mmol/ L 136-14 5 low Not Available [address] [place], [address] 2024 18:25:19 05/09/20 24 2024 COMPR EHENS CHARLES METAB OLIC PANEL potassium 5.4 mmol/ L 3.5-5. 1 high Not Available [address] [place], [address] 2024 18:25:19 05/09/20 24 2024 COMPR EHENS CHARLES METAB OLIC PANEL chloride 93 mmol/ L 98-107 low Not Available [address] [place], [address] 2024 18:25:19 05/09/20 24 2024 COMPR EHENS CHARLES METAB OLIC PANEL CO2 27.8 mmol/ L 21.0-3 2.0 normal Not Available [address] [place], [address] 2024 18:25:19 05/09/20 24 2024 COMPR EHENS CHARLES METAB OLIC PANEL anion gap 9.2 mmol/ L 3-11 normal Not Available [address] [place], [address] 2024 18:25:19 05/09/20 24 2024 COMPR EHENS CHARLES METAB OLIC PANEL AST 15 U/L 15-37 normal Not Available Jaymie harris [address] [place], [address] 2024 18:25:19 05/09/20 24 2024 COMPR EHENS CHARLES METAB OLIC PANEL ALT 25 U/L 16-63 normal Not Available Jaymie harris [address] [place], [address] 2024 18:25:19 05/09/20 24 2024 NT-DC OBNP nt-probnp 6988 pg/mL <300 high NT-pr [...] false negat charles resul ts. Not Available [address] [place], [address] 2024 18:25:19 05/09/20 24 2024 C-LIZZ CTIVE PROTE IN C-reactive protein > 25.00 mg/dL <or=0. 5 high Resul t verif ied by dilut ion and repea t otoniel sis Not Available [address] [facility] [place], [address] 2024 18:28:19 05/09/20 24 2024 LACTA TE lactate 2.2 mmol/ L 0.6-1. 4 panic high Criti anurag value LACTA TE repor sebastián to and readb ack from [facility] at 1757 05/09 by LAB.M OOL Not Available [address] [facility] [place], [address] 2024 18:30:22 05/09/20 24 2024 PROCA LCITO [...] se, among other cause s. Not Available [address] [place], [address] 2024 18:30:23 05/09/20 24 2024 COVID /FLU/ RSV PCR source Nasrachel inmanx Not Available Erin[address] [place], [address] 2024 18:47:21 05/09/20 24 2024 COVID /FLU/ [...] infor joe Thomasi ng perfo rmed at [facility] (CLIA #[id number]) on the Videof[employer] id GeneX pert. Not Available [address] [place], [address] 2024 18:47:21 05/09/20 24 2024 COVID /FLU/ RSV PCR influenza A PCR Negati ve negati ve Not Available [address] [place], [address] 2024 18:47:21 05/09/20 24 2024 COVID /FLU/ RSV PCR influenza B PCR Negati ve negati ve Not Available [address] [place], [address] 2024 18:47:21 05/09/20 24 2024 COVID /FLU/ RSV PCR RSV PCR Negati ve negati ve Not Available [address] [place], [address] 2024 18:47:21 05/09/20 24 2024 CREAT INE KINAS E creatine kinase 65 U/L 39-308 normal Not Available [address] [place], [address] 2024 19:15:25 05/09/20 24 2024 LACTA TE lactate 1.5 mmol/ L 0.6-1. 4 high Not Available [address] [place], [address] 2024 20:23:38 05/09/20 24 2024 URINA LYSIS color Dark Yellow yellow Not Available Wilbreto avery [address] [place], [address] 2024 20:38:39 05/09/20 24 2024 URINA LYSIS clarity Clear clear Not Available Jaymie harris [address] [place], [address] 2024 20:38:39 05/09/20 24 2024 URINA LYSIS specific gravity 1.020 1.005- 1.025 normal Not Available [address] [place], [address] 2024 20:38:39 05/09/20 24 2024 URINA LYSIS pH 5.0 5-8 normal Not Available Jaymie harris [address] [place], [address] 2024 20:38:39 05/09/20 24 2024 URINA LYSIS leukocyte esterase Negati ve negati ve Not Available [address] [place], [address] 2024 20:38:39 05/09/20 24 2024 URINA LYSIS nitrite Negati ve negati ve Not Available [address] [place], [address] 2024 20:38:39 05/09/20 24 2024 URINA LYSIS protein 30 mg/dL neg-tr derek abnormal Not Available [address] [place], [address] 2024 20:38:39 05/09/20 24 2024 URINA LYSIS glucose Negati ve mg/dL negati ve Not Available [address] [place], [address] 2024 20:38:39 05/09/20 24 2024 URINA LYSIS ketones Negati ve mg/dL negati ve Not Available [address] [place], [address] 2024 20:38:39 05/09/2005/09/2024 URINA LYSIS urobilinogen 0.2 mg/dL up to 0.2 Not Available [address] [place], [address] 2024 20:38:39 05/09/2005/09/2024 URINA LYSIS bilirubin Small negati ve abnormal Not Available [address] [place], [address] 2024 20:38:39 05/09/20 24 2024 URINA LYSIS blood Trace- lysed negati ve abnormal Not Available [address] [place], [address] 2024 20:38:39 05/09/20 24 2024 BASIC METAB OLIC PANEL calcium 8.4 mg/dL 8.5-10 .1 low Not Available [address] [place], [address] 2024 20:43:40 05/09/20 24 2024 BASIC METAB OLIC PANEL glucose 142 mg/dL 74-106 high Not Available Jaymie harris [address] [place], [address] 2024 20:43:40 05/09/20 24 2024 BASIC METAB OLIC PANEL BUN 74 mg/dL 7-18 high Not Available Jaymie harris [address] [place], [address] 2024 20:43:40 05/09/20 24 2024 BASIC METAB OLIC PANEL creatinine 4.7 mg/dL 0.70-1 .30 panic high Criti anurag value repor sebastián to and readb ack from [facility] ([facility]) at 05/09 by LAB.I FELISHA Resul t verif ied by repea t otoniel sis Not Available [address] [place], [address] 2024 20:43:40 05/09/20 24 2024 BASIC METAB [...] young er-ag ed adult s. Not Available [address] [place], [address] 2024 20:43:40 05/09/20 24 2024 BASIC METAB OLIC PANEL sodium 130 mmol/ L 136-14 5 low Not Available [address] [place], [address] 2024 20:43:40 05/09/20 24 2024 BASIC METAB OLIC PANEL potassium 5.8 mmol/ L 3.5-5. 1 high Not Available [address] [place], [address] 2024 20:43:40 05/09/20 24 2024 BASIC METAB OLIC PANEL chloride 94 mmol/ L 98-107 low Not Available [address] [place], [address] 2024 20:43:40 05/09/20 24 2024 BASIC METAB OLIC PANEL CO2 27.6 mmol/ L 21.0-3 2.0 normal Not Available [address] [place], [address] 2024 20:43:40 05/09/20 24 2024 BASIC METAB OLIC PANEL anion gap 8.4 mmol/ L 3-11 normal Not Available [address] [place], [address] 2024 20:43:40 05/09/20 24 2024 URINA LYSIS color Dark Yellow yellow Not Available Wilberto avery [address] [place], [address] 2024 20:49:42 05/09/20 24 2024 URINA LYSIS clarity Clear clear Not Available Jaymie harris [address] [place], [address] 2024 20:49:42 05/09/20 24 2024 URINA LYSIS specific gravity 1.020 1.005- 1.025 normal Not Available [address] [place], [address] 2024 20:49:42 05/09/20 24 2024 URINA LYSIS pH 5.0 5-8 normal Not Available Jaymie harris [address] [place], [address] 2024 20:49:42 05/09/20 24 2024 URINA LYSIS leukocyte esterase Negati ve negati ve Not Available [address] [place], [address] 2024 20:49:42 05/09/20 24 2024 URINA LYSIS nitrite Negati ve negati ve Not Available [address] [place], [address] 2024 20:49:42 05/09/20 24 2024 URINA LYSIS protein 30 mg/dL neg-tr derek abnormal Not Available [address] [place], [address] 2024 20:49:42 05/09/20 24 2024 URINA LYSIS glucose Negati ve mg/dL negati ve Not Available [address] [place], [address] 2024 20:49:42 05/09/20 24 2024 URINA LYSIS ketones Negati ve mg/dL negati ve Not Available [address] [place], [address] 2024 20:49:42 05/09/20 24 2024 URINA LYSIS urobilinogen 0.2 mg/dL up to 0.2 Not Available [address] [place], [address] 2024 20:49:42 05/09/20 24 2024 URINA LYSIS bilirubin Small negati ve abnormal Not Available [address] [place], [address] 2024 20:49:42 05/09/20 24 2024 URINA LYSIS blood Trace- lysed negati ve abnormal Not Available [address] [place], [address] 2024 20:49:42 05/09/20 24 2024 MICRO SCOPI C FINDI NGS WBC 0-2 hpf 0-5 Not Available [address] [place], [address] 2024 20:49:42 05/09/20 24 2024 MICRO SCOPI C FINDI NGS RBC 3-5 hpf 0-2 abnormal Not Available [address] [place], [address] 2024 20:49:42 05/09/20 24 2024 MICRO SCOPI C FINDI NGS epithelial cells Few hpf negati ve Not Available [address] [place], [address] 2024 20:49:42 05/09/20 24 2024 MICRO SCOPI C FINDI NGS bacteria Negati ve hpf negati ve Not Available [address] [place], [address] 2024 20:49:42 05/09/20 24 2024 MICRO SCOPI C FINDI NGS crystals Negati ve hpf negati ve Not Available [address] [place], [address] 2024 20:49:42 05/09/20 24 2024 MICRO SCOPI C FINDI NGS mucus Trace negati ve Not Available [address] [place], [address] 2024 20:49:42 05/09/20 24 2024 MICRO SCOPI C FINDI NGS C S indicated? No Not Available [address] [place], [address] 2024 20:49:42 05/09/20 24 2024 CREAT ININE ,URIN E creatinine,u rine 178.13 mg/dL No Refer ence Range estab lishe d Not Available [address] [place], [address] 2024 21:01:41 05/09/20 24 2024 SODIU M, URINE sodium, urine 34 mmol/ L No Refer ence Range estab lishe d Not Available [address] [place], [address] 2024 21:01:41 05/09/20 24 2024 GRAM STAIN gram stain Gram Stain GRAM STAIN (REPO RT) No White Blood Cells Moder ate Gram Posit charles Cocci Not Available [address] [place], [address] 2024 21:19:42 05/09/20 24 05/12/2024 WOUND AEROB [...] 1.1) - SCANT GROWT H Not Available [address] [place], [address] 05/12/2024 10:07:33 05/09/20 24 05/10/2024 BLOOD CULTU RE ( AGE => 9 YRS) blood culture ( age => 9 yrs) Blood Cultu re ( Age => 9 Yrs) NO GROWT H 24 HOURS Not Available [address] [place], [address] 05/10/2024 19:54:31 05/09/20 24 05/10/2024 BLOOD CULTU RE ( AGE => 9 YRS) blood culture ( age => 9 yrs) Blood Cultu re ( Age => 9 Yrs) NO GROWT H 24 HOURS Not Available [address] [place], [address] 05/10/2024 20:03:33 05/09/20 24 05/11/2024 BLOOD CULTU RE ( AGE => 9 YRS) blood culture ( age => 9 yrs) Blood Cultu re ( Age => 9 Yrs) NO GROWT H 48 HOURS Not Available [address] [place], [address] 05/11/2024 19:55:07 05/09/20 24 05/11/2024 BLOOD CULTU RE ( AGE => 9 YRS) blood culture ( age => 9 yrs) Blood Cultu re ( Age => 9 Yrs) NO GROWT H 48 HOURS Not Available [address] [place], [address] 05/11/2024 20:04:08 05/09/20 24 05/12/2024 BLOOD CULTU RE ( AGE => 9 YRS) blood culture ( age => 9 yrs) Blood Cultu re ( Age => 9 Yrs) NO GROWT H 72 HOURS Not Available [address] [place], [address] 05/12/2024 19:54:51 05/09/20 24 05/12/2024 BLOOD CULTU RE ( AGE => 9 YRS) blood culture ( age => 9 yrs) Blood Cultu re ( Age => 9 Yrs) NO GROWT H 72 HOURS Not Available [address] [place], [address] 05/12/2024 20:04:53 05/09/20 24 05/13/2024 BLOOD CULTU RE ( AGE => 9 YRS) blood culture ( age => 9 yrs) Blood Cultu re ( Age => 9 Yrs) NO GROWT H 96 HOURS Not Available [address] [place], [address] 05/13/2024 19:54:00 05/09/20 24 05/13/2024 BLOOD CULTU RE ( AGE => 9 YRS) blood culture ( age => 9 yrs) Blood Cultu re ( Age => 9 Yrs) NO GROWT H 96 HOURS Not Available [address] [place], [address] 05/13/2024 20:04:00 05/09/2005/14/2024 BLOOD CULTU RE ( AGE => 9 YRS) blood culture ( age => 9 yrs) Blood Cultu re ( Age => 9 Yrs) NO GROWT H 120 HOURS Not Available [address] [place], [address] 05/14/2024 19:54:56 05/09/20 24 05/14/2024 BLOOD CULTU RE ( AGE => 9 YRS) blood culture ( age => 9 yrs) Blood Cultu re ( Age => 9 Yrs) NO GROWT H 120 HOURS Not Available [address] [place], [address] 05/14/2024 20:40:58 05/28/2005/28/2024 COMPR EHENS CHARLES METAB OLIC PANEL calcium 8.9 mg/dL 8.5-10 .1 normal Not Available [address] [place], [address] 05/28/2024 17:53:10 05/28/2005/28/2024 COMPR EHENS CHARLES METAB OLIC PANEL glucose 132 mg/dL 74-106 high Not Available Jaymie harris [address] [place], [address] 05/28/2024 17:53:10 05/28/2005/28/2024 COMPR EHENS CHARLES METAB OLIC PANEL BUN 67 mg/dL 7-18 high Not Available Jaymie harris [address] [place], [address] 05/28/2024 17:53:10 05/28/20 24 05/28/2024 COMPR EHENS CHARLES METAB OLIC PANEL creatinine 3.3 mg/dL 0.70-1 .30 high Not Available [address] [place], [address] 05/28/2024 17:53:10 05/28/20 24 05/28/2024 COMPR EHENS [...] young er-ag ed adult s. Not Available [address] [place], [address] 05/28/2024 17:53:10 05/28/20 24 05/28/2024 COMPR EHENS CHARLES METAB OLIC PANEL total protein 6.3 g/dL 6.4-8. 2 low Not Available [address] [place], [address] 05/28/2024 17:53:10 05/28/20 24 05/28/2024 COMPR EHENS CHARLES METAB OLIC PANEL albumin 1.9 g/dL 3.4-5. 0 low Not Available [address] [place], [address] 05/28/2024 17:53:10 05/28/20 24 05/28/2024 COMPR EHENS CHARLES METAB OLIC PANEL bilirubin, total 0.19 mg/dL 0.2-1. 0 low Not Available [address] [place], [address] 05/28/2024 17:53:10 05/28/20 24 05/28/2024 COMPR EHENS CHARLES METAB OLIC PANEL alk phos 85 U/L 46-116 normal Not Available [address] [place], [address] 05/28/2024 17:53:10 05/28/20 24 05/28/2024 COMPR EHENS CHARLES METAB OLIC PANEL sodium 139 mmol/ L 136-14 5 normal Not Available [address] [place], [address] 05/28/2024 17:53:10 05/28/20 24 05/28/2024 COMPR EHENS CHARLES METAB OLIC PANEL potassium 4.8 mmol/ L 3.5-5. 1 normal Not Available [address] [place], [address] 05/28/2024 17:53:10 05/28/20 24 05/28/2024 COMPR EHENS CHARLES METAB OLIC PANEL chloride 103 mmol/ L 98-107 normal Not Available [address] [place], [address] 05/28/2024 17:53:10 05/28/20 24 05/28/2024 COMPR EHENS CHARLES METAB OLIC PANEL CO2 21.8 mmol/ L 21.0-3 2.0 normal Not Available [address] [place], [address] 05/28/2024 17:53:10 05/28/20 24 05/28/2024 COMPR EHENS CHARLES METAB OLIC PANEL anion gap 14.2 mmol/ L 3-11 high Not Available [address] [place], [address] 05/28/2024 17:53:10 05/28/20 24 05/28/2024 COMPR EHENS CHARLES METAB OLIC PANEL AST 11 U/L 15-37 low Not Available Jaymie harris [address] [place], [address] 05/28/2024 17:53:10 05/28/20 24 05/28/2024 COMPR EHENS CHARLES METAB OLIC PANEL ALT 24 U/L 16-63 normal Not Available Jaymie harris [address] [place], [address] 05/28/2024 17:53:10 08/1405/28/2024 C-LIZZ CTIVE PROTE IN C-reactive protein 17.10 mg/dL <or=0. 5 high Not Available [address] [place], [address] 05/28/2024 17:53:11 05/28/20 24 05/28/2024 COMPL ETE BLOOD COUNT W/DIF F WBC 8.88 10_3/ uL 4.4-10 .8 normal Not Available [address] [place], [address] 05/28/2024 18:03:14 05/28/20 24 05/28/2024 COMPL ETE BLOOD COUNT W/DIF F RBC 2.31 10_6/ uL 4.36-5 .78 low Not Available [address] [place], [address] 05/28/2024 18:03:14 05/28/20 24 05/28/2024 COMPL ETE BLOOD COUNT W/DIF F HGB 7.1 g/dL 13.5-1 7.5 low Resul t verif ied by repea t otoniel sis Not Available [address] [place], [address] 05/28/2024 18:03:14 05/28/20 24 05/28/2024 COMPL ETE BLOOD COUNT W/DIF F HCT 21.8 % 40.0-5 0.0 low Not Available [address] [place], [address] 05/28/2024 18:03:14 05/28/20 24 05/28/2024 COMPL ETE BLOOD COUNT W/DIF F MCV 94 fL 80-95 normal Not Available Jaymie harris [address] [place], [address] 05/28/2024 18:03:14 05/28/2005/28/2024 COMPL ETE BLOOD COUNT W/DIF F MCH 30.7 pg 27.0-3 3.0 normal Not Available [address] [place], [address] 05/28/2024 18:03:14 05/28/20 24 05/28/2024 COMPL ETE BLOOD COUNT W/DIF F MCHC 32.6 % 32.0-3 6.0 normal Not Available [address] [place], [address] 05/28/2024 18:03:14 05/28/2005/28/2024 COMPL ETE BLOOD COUNT W/DIF F RDW 16.5 % 11.8-1 4.1 high Not Available [address] [place], [address] 05/28/2024 18:03:14 05/28/20 24 05/28/2024 COMPL ETE BLOOD COUNT W/DIF F platelet count 355 10_3/ uL 130-40 0 normal Not Available [address] [place], [address] 05/28/2024 18:03:14 05/28/2005/28/2024 COMPL ETE BLOOD COUNT W/DIF F MPV 11.7 fL 8.0-11 .0 high Not Available [address] [place], [address] 05/28/2024 18:03:14 05/28/20 24 05/28/2024 COMPL ETE BLOOD COUNT W/DIF F neutrophils % 75.0 % Not Available [address] [place], [address] 05/28/2024 18:03:14 05/28/20 24 05/28/2024 COMPL ETE BLOOD COUNT W/DIF F lymphocytes % 8.7 % Not Available [address] [place], [address] 05/28/2024 18:03:14 05/28/20 24 05/28/2024 COMPL ETE BLOOD COUNT W/DIF F monocytes % 12.8 % Not Available [address] [place], [address] 05/28/2024 18:03:14 05/28/20 24 05/28/2024 COMPL ETE BLOOD COUNT W/DIF F eosinophils % 2.4 % Not Available [address] [place], [address] 05/28/2024 18:03:14 05/28/20 24 05/28/2024 COMPL ETE BLOOD COUNT W/DIF F basophils % 0.6 % Not Available [address] [place], [address] 05/28/2024 18:03:14 05/28/20 24 05/28/2024 COMPL ETE BLOOD COUNT W/DIF F immature grans % 0.5 % Not Available [address] [place], [address] 05/28/2024 18:03:14 05/28/20 24 05/28/2024 COMPL ETE BLOOD COUNT W/DIF F nucleated RBC 0.0 % 0.0-0. 3 normal Not Available [address] [place], [address] 05/28/2024 18:03:14 05/28/20 24 05/28/2024 COMPL ETE BLOOD COUNT W/DIF F absolute neutrophil count 6.67 10_3/ uL 1.2-6. 7 normal Not Available [address] [place], [address] 05/28/2024 18:03:14 05/28/20 24 05/28/2024 COMPL ETE BLOOD COUNT W/DIF F absolute lymphocyte count 0.77 10_3/ uL 1.2-3. 4 low Not Available [address] [place], [address] 05/28/2024 18:03:14 05/28/20 24 05/28/2024 COMPL ETE BLOOD COUNT W/DIF F absolute monocyte count 1.14 10_3/ uL 0.1-0. 8 high Not Available [address] [place], [address] 05/28/2024 18:03:14 05/28/20 24 05/28/2024 COMPL ETE BLOOD COUNT W/DIF F absolute eosinophil count 0.21 10_3/ uL 0.0-0. 7 normal Not Available [address] [place], [address] 05/28/2024 18:03:14 05/28/20 24 05/28/2024 COMPL ETE BLOOD COUNT W/DIF F absolute basophil count 0.05 10_3/ uL 0.0-0. 2 normal Not Available [address] [place], [address] 05/28/2024 18:03:14 05/28/20 24 05/28/2024 COMPL ETE BLOOD COUNT W/DIF F diff comment RBC Morph Review ed Not Available [address] [place], [address] 05/28/2024 18:03:14 05/28/20 24 05/28/2024 COMPL ETE BLOOD COUNT W/DIF F RBC morphology See Below Not Available [address] [place], [address] 05/28/2024 18:03:14 05/28/2005/28/2024 COMPL ETE BLOOD COUNT W/DIF F anisocytosis 1+ Not Available [address] [place], [address] 05/28/2024 18:03:14 06/03/20 24 06/03/2024 COMPL ETE BLOOD COUNT NO DIFF WBC 10.42 10_3/ uL 4.4-10 .8 normal Not Available [address] [place], [address] 06/03/2024 17:33:46 06/03/20 24 06/03/2024 COMPL ETE BLOOD COUNT NO DIFF RBC 2.25 10_6/ uL 4.36-5 .78 low Not Available [address] [place], [address] 06/03/2024 17:33:46 06/03/20 24 06/03/2024 COMPL ETE BLOOD COUNT NO DIFF HGB 6.7 g/dL 13.5-1 7.5 critical low Criti anurag value repor sbeastián to and readb ack from JACOBO Avery (RN), [facility] at 1729 06/03 by LAB.I FELISHA Not Available [address] [place], [address] 06/03/2024 17:33:46 06/03/20 24 06/03/2024 COMPL ETE BLOOD COUNT NO DIFF HCT 21.0 % 40.0-5 0.0 low Criti anurag value repor sebastián to and phillipb ack from [facility] ABHAY Avery (RN), [facility] at 1729 06/03 by LAB.I FELISHA Not Available [address] [place], [address] 06/03/2024 17:33:46 06/03/20 24 06/03/2024 COMPL ETE BLOOD COUNT NO DIFF MCV 93 fL 80-95 normal Not Available Jaymie harris [address] [place], [address] 06/03/2024 17:33:46 06/03/20 24 06/03/2024 COMPL ETE BLOOD COUNT NO DIFF MCH 29.8 pg 27.0-3 3.0 normal Not Available [address] [place], [address] 06/03/2024 17:33:46 06/03/20 24 06/03/2024 COMPL ETE BLOOD COUNT NO DIFF MCHC 31.9 % 32.0-3 6.0 low Not Available [address] [place], [address] 06/03/2024 17:33:46 06/03/20 24 06/03/2024 COMPL ETE BLOOD COUNT NO DIFF RDW 15.7 % 11.8-1 4.1 high Not Available [address] [place], [address] 06/03/2024 17:33:46 06/03/20 24 06/03/2024 COMPL ETE BLOOD COUNT NO DIFF platelet count 280 10_3/ uL 130-40 0 normal Not Available [address] [place], [address] 06/03/2024 17:33:46 06/03/20 24 06/03/2024 COMPL ETE BLOOD COUNT NO DIFF MPV 10.9 fL 8.0-11 .0 normal Not Available [address] [place], [address] 06/03/2024 17:33:46 06/03/20 24 06/03/2024 COMPR EHENS CHARLES METAB OLIC PANEL calcium 8.8 mg/dL 8.5-10 .1 normal Not Available [address] [place], [address] 06/03/2024 17:42:49 06/03/20 24 06/03/2024 COMPR EHENS CHARLES METAB OLIC PANEL glucose 141 mg/dL 74-106 high Not Available Jaymie rn [address] [place], [address] 06/03/2024 17:42:49 06/03/20 24 06/03/2024 COMPR EHENS CHARLES METAB OLIC PANEL BUN 62 mg/dL 7-18 high Not Available Jaymie rn [address] [place], [address] 06/03/2024 17:42:49 06/03/20 24 06/03/2024 COMPR EHENS CHARLES METAB OLIC PANEL creatinine 3.7 mg/dL 0.70-1 .30 panic high Criti anurag value repor sebastián to and readb ack from [facility] maría elena layne RN at 1735 06/03 by LAB.K ELISSA Resul t verif ied by repea t otoniel sis Not Available [address] [place], [address] 06/03/2024 17:42:49 06/03/20 24 06/03/2024 COMPR EHENS [...] young er-ag ed adult s. Not Available [address] [place], [address] 06/03/2024 17:42:49 06/03/20 24 06/03/2024 COMPR EHENS CHARLES METAB OLIC PANEL total protein 6.2 g/dL 6.4-8. 2 low Not Available [address] [place], [address] 06/03/2024 17:42:49 06/03/20 24 06/03/2024 COMPR EHENS CHARLES METAB OLIC PANEL albumin 1.8 g/dL 3.4-5. 0 low Not Available [address] [place], [address] 06/03/2024 17:42:49 06/03/20 24 06/03/2024 COMPR EHENS CHARLES METAB OLIC PANEL bilirubin, total 0.19 mg/dL 0.2-1. 0 low Not Available [address] [place], [address] 06/03/2024 17:42:49 06/03/20 24 06/03/2024 COMPR EHENS CHARLES METAB OLIC PANEL alk phos 94 U/L 46-116 normal Not Available [address] [place], [address] 06/03/2024 17:42:49 06/03/20 24 06/03/2024 COMPR EHENS CHARLES METAB OLIC PANEL sodium 136 mmol/ L 136-14 5 normal Not Available [address] [place], [address] 06/03/2024 17:42:49 06/03/20 24 06/03/2024 COMPR EHENS CHARLES METAB OLIC PANEL potassium 4.3 mmol/ L 3.5-5. 1 normal Not Available [address] [place], [address] 06/03/2024 17:42:49 06/03/20 24 06/03/2024 COMPR EHENS CHARLES METAB OLIC PANEL chloride 102 mmol/ L 98-107 normal Not Available [address] [place], [address] 06/03/2024 17:42:49 06/03/20 24 06/03/2024 COMPR EHENS CHARLES METAB OLIC PANEL CO2 24.3 mmol/ L 21.0-3 2.0 normal Not Available [address] [place], [address] 06/03/2024 17:42:49 06/03/20 24 06/03/2024 COMPR EHENS CHARLES METAB OLIC PANEL anion gap 9.7 mmol/ L 3-11 normal Not Available [address] [place], [address] 06/03/2024 17:42:49 06/03/20 24 06/03/2024 COMPR EHENS CHARLES METAB OLIC PANEL AST 12 U/L 15-37 low Not Available Jaymie harris [address] [place], [address] 06/03/2024 17:42:49 06/03/20 24 06/03/2024 COMPR EHENS CHARLES METAB OLIC PANEL ALT 18 U/L 16-63 normal Not Available Jaymie [address] [place], [address] 06/03/2024 17:42:49 06/03/20 24 06/03/2024 C-LIZZ CTIVE PROTE IN C-reactive protein 15.12 mg/dL <or=0. 5 high Not Available [address] [place], [address] 06/03/2024 17:42:49 06/03/20 24 06/03/2024 LACTA TE lactate 1.1 mmol/ L 0.9-1. 7 normal Not Available [address] [place], [address] 06/03/2024 20:45:22 06/03/20 24 06/03/2024 COMPL ETE BLOOD COUNT W/DIF F WBC 10.73 10_3/ uL 4.4-10 .8 normal Not Available [address] [place], [address] 06/03/2024 20:47:23 06/03/20 24 06/03/2024 COMPL ETE BLOOD COUNT W/DIF F RBC 2.58 10_6/ uL 4.36-5 .78 low Not Available [address] [place], [address] 06/03/2024 20:47:23 06/03/20 24 06/03/2024 COMPL ETE BLOOD COUNT W/DIF F HGB 7.6 g/dL 13.5-1 7.5 low Not Available [address] [place], [address] 06/03/2024 20:47:23 06/03/20 24 06/03/2024 COMPL ETE BLOOD COUNT W/DIF F HCT 24.3 % 40.0-5 0.0 low Not Available [address] [place], [address] 06/03/2024 20:47:23 06/03/20 24 06/03/2024 COMPL ETE BLOOD COUNT W/DIF F MCV 94 fL 80-95 normal Not Available Jaymie [address] [place], [address] 06/03/2024 20:47:23 06/03/20 24 06/03/2024 COMPL ETE BLOOD COUNT W/DIF F MCH 29.5 pg 27.0-3 3.0 normal Not Available [address] [place], [address] 06/03/2024 20:47:23 06/03/20 24 06/03/2024 COMPL ETE BLOOD COUNT W/DIF F MCHC 31.3 % 32.0-3 6.0 low Not Available [address] [place], [address] 06/03/2024 20:47:23 06/03/20 24 06/03/2024 COMPL ETE BLOOD COUNT W/DIF F RDW 16.2 % 11.8-1 4.1 high Not Available [address] [place], [address] 06/03/2024 20:47:23 06/03/20 24 06/03/2024 COMPL ETE BLOOD COUNT W/DIF F platelet count 302 10_3/ uL 130-40 0 normal Not Available [address] [place], [address] 06/03/2024 20:47:23 06/03/20 24 06/03/2024 COMPL ETE BLOOD COUNT W/DIF F MPV 10.1 fL 8.0-11 .0 normal Not Available [address] [place], [address] 06/03/2024 20:47:23 06/03/20 24 06/03/2024 COMPL ETE BLOOD COUNT W/DIF F neutrophils % 73.4 % Not Available [address] [place], [address] 06/03/2024 20:47:23 06/03/20 24 06/03/2024 COMPL ETE BLOOD COUNT W/DIF F lymphocytes % 10.5 % Not Available [address] [place], [address] 06/03/2024 20:47:23 06/03/20 24 06/03/2024 COMPL ETE BLOOD COUNT W/DIF F monocytes % 11.8 % Not Available [address] [place], [address] 06/03/2024 20:47:23 06/03/20 24 06/03/2024 COMPL ETE BLOOD COUNT W/DIF F eosinophils % 3.5 % Not Available [address] [place], [address] 06/03/2024 20:47:23 06/03/20 24 06/03/2024 COMPL ETE BLOOD COUNT W/DIF F basophils % 0.4 % Not Available [address] [place], [address] 06/03/2024 20:47:23 06/03/20 24 06/03/2024 COMPL ETE BLOOD COUNT W/DIF F immature grans % 0.4 % Not Available [address] [place], [address] 06/03/2024 20:47:23 06/03/20 24 06/03/2024 COMPL ETE BLOOD COUNT W/DIF F nucleated RBC 0.0 % 0.0-0. 3 normal Not Available [address] [place], [address] 06/03/2024 20:47:23 06/03/20 24 06/03/2024 COMPL ETE BLOOD COUNT W/DIF F absolute neutrophil count 7.87 10_3/ uL 1.2-6. 7 high Not Available [address] [place], [address] 06/03/2024 20:47:23 06/03/20 24 06/03/2024 COMPL ETE BLOOD COUNT W/DIF F absolute lymphocyte count 1.13 10_3/ uL 1.2-3. 4 low Not Available [address] [place], [address] 06/03/2024 20:47:23 06/03/20 24 06/03/2024 COMPL ETE BLOOD COUNT W/DIF F absolute monocyte count 1.27 10_3/ uL 0.1-0. 8 high Not Available [address] [place], [address] 06/03/2024 20:47:23 06/03/20 24 06/03/2024 COMPL ETE BLOOD COUNT W/DIF F absolute eosinophil count 0.38 10_3/ uL 0.0-0. 7 normal Not Available [address] [place], [address] 06/03/2024 20:47:23 06/03/20 24 06/03/2024 COMPL ETE BLOOD COUNT W/DIF F absolute basophil count 0.04 10_3/ uL 0.0-0. 2 normal Not Available [address] [place], [address] 06/03/2024 20:47:23 06/03/20 24 06/03/2024 COMPL ETE BLOOD COUNT W/DIF F diff comment RBC Morph Review ed Not Available [address] [place], [address] 06/03/2024 20:47:23 06/03/20 24 06/03/2024 COMPL ETE BLOOD COUNT W/DIF F RBC morphology See Below Not Available [address] [place], [address] 06/03/2024 20:47:23 06/03/20 24 06/03/2024 COMPL ETE BLOOD COUNT W/DIF F hypochromasi a 2+ Not Available Jory morales [address] [place], [address] 06/03/2024 20:47:23 06/03/20 24 06/03/2024 PROTH ROMBI N TIME prothrombin time 14.3 sec 9.1-11 .1 high Not Available [address] [place], [address] 06/03/2024 20:52:23 06/03/20 24 06/03/2024 PROTH ROMBI N TIME INR 1.5 0.9-1. 1 high Recom atif d INR thera peuti c range s for orall y admin ister ed drugs are as follo ws: -Chon dard Inten sity 2.0 to 3.0 -High er Inten sity 3.0 to 4.5 Not Available [address] [place], [address] 06/03/2024 20:52:23 06/03/20 24 06/03/2024 PTT ACTIV ATED PTT activated 33.0 sec 23.6-3 2.8 high Hepar in Thera peuti c Range for PTT = 52-84 secon ds New Hepar in Thera peuti c Range 11/20 Not Available [address] [place], [address] 06/03/2024 20:52:24 06/03/20 24 06/03/2024 COMPR EHENS CHARLES METAB OLIC PANEL calcium 9.3 mg/dL 8.5-10 .1 normal Not Available [address] [place], [address] 06/03/2024 20:59:24 06/03/20 24 06/03/2024 COMPR EHENS CHARLES METAB OLIC PANEL glucose 122 mg/dL 74-106 high Not Available Jaymie harris [address] [place], [address] 06/03/2024 20:59:24 06/03/20 24 06/03/2024 COMPR EHENS CHARLES METAB OLIC PANEL BUN 65 mg/dL 7-18 high Not Available Jaymie harris [address] [place], [address] 06/03/2024 20:59:24 06/03/20 24 06/03/2024 COMPR EHENS CHARLES METAB OLIC PANEL creatinine 4.0 mg/dL 0.70-1 .30 panic high Criti anurag value repor sebastián to and readb ack from [facility] (RN), ED at 06/03 by LAB.I FELISHA Not Available [address] [place], [address] 06/03/2024 20:59:24 06/03/20 24 06/03/2024 COMPR EHENS [...] young er-ag ed adult s. Not Available [address] [place], [address] 06/03/2024 20:59:24 06/03/20 24 06/03/2024 COMPR EHENS CHARLES METAB OLIC PANEL total protein 7.5 g/dL 6.4-8. 2 normal Not Available [address] [place], [address] 06/03/2024 20:59:24 06/03/20 24 06/03/2024 COMPR EHENS CHARLES METAB OLIC PANEL albumin 1.9 g/dL 3.4-5. 0 low Not Available [address] [place], [address] 06/03/2024 20:59:24 06/03/20 24 06/03/2024 COMPR EHENS CHARLES METAB OLIC PANEL bilirubin, total 0.18 mg/dL 0.2-1. 0 low Not Available [address] [place], [address] 06/03/2024 20:59:24 06/03/20 24 06/03/2024 COMPR EHENS CHARLES METAB OLIC PANEL alk phos 113 U/L 46-116 normal Not Available [address] [place], [address] 06/03/2024 20:59:24 06/03/20 24 06/03/2024 COMPR EHENS CHARLES METAB OLIC PANEL sodium 136 mmol/ L 136-14 5 normal Not Available [address] [place], [address] 06/03/2024 20:59:24 06/03/20 24 06/03/2024 COMPR EHENS CHARLES METAB OLIC PANEL potassium 4.6 mmol/ L 3.5-5. 1 normal Not Available [address] [place], [address] 06/03/2024 20:59:24 06/03/20 24 06/03/2024 COMPR EHENS CHARLES METAB OLIC PANEL chloride 102 mmol/ L 98-107 normal Not Available [address] [place], [address] 06/03/2024 20:59:24 06/03/20 24 06/03/2024 COMPR EHENS CHARLES METAB OLIC PANEL CO2 24.9 mmol/ L 21.0-3 2.0 normal Not Available [address] [place], [address] 06/03/2024 20:59:24 06/03/20 24 06/03/2024 COMPR EHENS CHARLES METAB OLIC PANEL anion gap 9.1 mmol/ L 3-11 normal Not Available [address] [place], [address] 06/03/2024 20:59:24 06/03/20 24 06/03/2024 COMPR EHENS CHARLES METAB OLIC PANEL AST 12 U/L 15-37 low Not Available Jaymie harris [address] [place], [address] 06/03/2024 20:59:24 06/03/20 24 06/03/2024 COMPR EHENS CHARLES METAB OLIC PANEL ALT 20 U/L 16-63 normal Not Available Jaymie harris [address] [place], [address] 06/03/2024 20:59:24 06/03/20 24 06/03/2024 MAGNE SIUM magnesium 1.9 mg/dL 1.8-2. 4 normal Not Available [address] [place], [address] 06/03/2024 20:59:25 06/03/20 24 06/03/2024 TROPO TI I troponin I < 50 NG/L < or =60 Not Available [address] [place], [address] 06/03/2024 21:03:28 06/03/20 24 06/03/2024 NT-DC OBNP nt-probnp 6403 pg/mL <300 high NT-pr [...] false negat charles resul ts. Not Available [address] [place], [address] 06/03/2024 21:03:28 06/03/20 24 06/03/2024 P B O Positi ve Not Available Wilberto [address] [place], [address] 06/03/2024 21:20:26 06/03/20 24 06/04/2024 HIV-1 /2 [...] perfo rmed or refer red by [facility] [address] [place] [address] Not Available [address] [place], [address] 06/05/2024 09:22:31 06/03/20 24 06/04/2024 HEPAT ITIS C AB W RFLX HCV PCR hepatitis C Ab W rflx HCV PCR Negati ve negati ve Test perfo rmed or refer red by [facility] [address] [place] [address] Not Available [address] [place], [address] 06/05/2024 09:22:32 06/03/20 24 06/04/2024 HEPAT ITIS B SURFA CE AG hepatitis B surface Ag Negati ve negati ve Test perfo rmed or refer red by [facility] [address], [place] [address] Not Available [address] [place], [address] 06/05/2024 09:22:33 06/03/20 24 06/04/2024 HEPAT ITIS C AB W RFLX HCV PCR hepatitis C Ab W rflx HCV PCR Negati ve negati ve Test perfo rmed or refer red by [facility] [address] [place] [address] Not Available [address] [place], [address] 06/05/2024 09:22:34 06/03/20 24 06/04/2024 HEPAT ITIS B SURFA CE AG hepatitis B surface Ag Negati ve negati ve Test perfo rmed or refer red by [facility] [address], [place] [address] Not Available [address] [place], [address] 06/05/2024 09:22:35 06/06/20 24 06/06/2024 LACTA TE lactate 0.6 mmol/ L 0.6-1. 4 normal Not Available [address] [place], [address] 06/06/2024 16:39:46 06/06/20 24 06/06/2024 COMPL ETE BLOOD COUNT W/DIF F WBC 7.99 10_3/ uL 4.4-10 .8 normal Not Available [address] [place], [address] 06/06/2024 16:41:49 06/06/20 24 06/06/2024 COMPL ETE BLOOD COUNT W/DIF F RBC 2.18 10_6/ uL 4.36-5 .78 low Not Available [address] [place], [address] 06/06/2024 16:41:49 06/06/20 24 06/06/2024 COMPL ETE BLOOD COUNT W/DIF F HGB 6.3 g/dL 13.5-1 7.5 critical low Criti anurag value repor sebastián to and readb ack from [facility] , CIPHER [facility]PERT at 1623 06/06 by LAB.L AUT Not Available [address] [place], [address] 06/06/2024 16:41:49 06/06/20 24 06/06/2024 COMPL ETE BLOOD COUNT W/DIF F HCT 20.1 % 40.0-5 0.0 critical low Criti anurag value repor sebastián to and readb ack from [facility] , CIPHER EXPERT at 1623 06/06 by LAB.L AUT Not Available [address] [place], [address] 06/06/2024 16:41:49 06/06/20 24 06/06/2024 COMPL ETE BLOOD COUNT W/DIF F MCV 92 fL 80-95 normal Not Available Jaymie [address] [place], [address] 06/06/2024 16:41:49 06/06/20 24 06/06/2024 COMPL ETE BLOOD COUNT W/DIF F MCH 28.9 pg 27.0-3 3.0 normal Not Available [address] [place], [address] 06/06/2024 16:41:49 06/06/20 24 06/06/2024 COMPL ETE BLOOD COUNT W/DIF F MCHC 31.3 % 32.0-3 6.0 low Not Available [address] [place], [address] 06/06/2024 16:41:49 06/06/20 24 06/06/2024 COMPL ETE BLOOD COUNT W/DIF F RDW 15.9 % 11.8-1 4.1 high Not Available [address] [place], [address] 06/06/2024 16:41:49 06/06/20 24 06/06/2024 COMPL ETE BLOOD COUNT W/DIF F platelet count 266 10_3/ uL 130-40 0 normal Not Available [address] [place], [address] 06/06/2024 16:41:49 06/06/20 24 06/06/2024 COMPL ETE BLOOD COUNT W/DIF F MPV 10.2 fL 8.0-11 .0 normal Not Available [address] [place], [address] 06/06/2024 16:41:49 06/06/20 24 06/06/2024 COMPL ETE BLOOD COUNT W/DIF F neutrophils % 66.1 % Not Available [facility] [address] [place], [address] 06/06/2024 16:41:49 06/06/20 24 06/06/2024 COMPL ETE BLOOD COUNT W/DIF F lymphocytes % 11.5 % Not Available [facility] [address] [place], [address] 06/06/2024 16:41:49 06/06/20 24 06/06/2024 COMPL ETE BLOOD COUNT W/DIF F monocytes % 16.0 % Not Available [address] [place], [address] 06/06/2024 16:41:49 06/06/20 24 06/06/2024 COMPL ETE BLOOD COUNT W/DIF F eosinophils % 5.6 % Not Available [address] [place], [address] 06/06/2024 16:41:49 06/06/20 24 06/06/2024 COMPL ETE BLOOD COUNT W/DIF F basophils % 0.5 % Not Available [address] [place], [address] 06/06/2024 16:41:49 06/06/20 24 06/06/2024 COMPL ETE BLOOD COUNT W/DIF F immature grans % 0.3 % Not Available [address] [place], [address] 06/06/2024 16:41:49 06/06/20 24 06/06/2024 COMPL ETE BLOOD COUNT W/DIF F nucleated RBC 0.0 % 0.0-0. 3 normal Not Available [address] [place], [address] 06/06/2024 16:41:49 06/06/20 24 06/06/2024 COMPL ETE BLOOD COUNT W/DIF F absolute neutrophil count 5.28 10_3/ uL 1.2-6. 7 normal Not Available [address] [place], [address] 06/06/2024 16:41:49 06/06/20 24 06/06/2024 COMPL ETE BLOOD COUNT W/DIF F absolute lymphocyte count 0.92 10_3/ uL 1.2-3. 4 low Not Available [address] [place], [address] 06/06/2024 16:41:49 06/06/20 24 06/06/2024 COMPL ETE BLOOD COUNT W/DIF F absolute monocyte count 1.28 10_3/ uL 0.1-0. 8 high Not Available [address] [place], [address] 06/06/2024 16:41:49 06/06/20 24 06/06/2024 COMPL ETE BLOOD COUNT W/DIF F absolute eosinophil count 0.45 10_3/ uL 0.0-0. 7 normal Not Available [address] [place], [address] 06/06/2024 16:41:49 06/06/20 24 06/06/2024 COMPL ETE BLOOD COUNT W/DIF F absolute basophil count 0.04 10_3/ uL 0.0-0. 2 normal Not Available [address] [place], [address] 06/06/2024 16:41:49 06/06/20 24 06/06/2024 COMPL ETE BLOOD COUNT W/DIF F diff comment RBC Morph Review ed Not Available [address] [place], [address] 06/06/2024 16:41:49 06/06/20 24 06/06/2024 COMPL ETE BLOOD COUNT W/DIF F RBC morphology See Below Not Available [address] [place], [address] 06/06/2024 16:41:49 06/06/20 24 06/06/2024 COMPL ETE BLOOD COUNT W/DIF F hypochromasi a 2+ Not Available [address] [place], [address] 06/06/2024 16:41:49 06/06/20 24 06/06/2024 COMPL ETE BLOOD COUNT W/DIF F polychromasi a Presen t Not Available [address] [place], [address] 06/06/2024 16:41:49 06/06/20 24 06/06/2024 PROTH ROMBI N TIME prothrombin time 12.0 sec 9.1-11 .1 high Not Available [address] [place], [address] 06/06/2024 16:42:54 06/06/20 24 06/06/2024 PROTH ROMBI N TIME INR 1.2 0.9-1. 1 high Recom atif d INR thera peuti c range s for orall y admin ister ed drugs are as follo ws: -Chon dard Inten sity 2.0 to 3.0 -High er Inten sity 3.0 to 4.5 Not Available [address] [place] [place], [address] 06/06/2024 16:42:54 06/06/20 24 06/06/2024 COMPR EHENS CHARLES METAB OLIC PANEL calcium 8.9 mg/dL 8.5-10 .1 normal Not Available [address] [place], [address] 06/06/2024 16:47:50 06/06/20 24 06/06/2024 COMPR EHENS CHARLES METAB OLIC PANEL glucose 151 mg/dL 74-106 high Not Available Jaymie harris [address] [place], [address] 06/06/2024 16:47:50 06/06/20 24 06/06/2024 COMPR EHENS CHARLES METAB OLIC PANEL BUN 72 mg/dL 7-18 high Not Available Jaymie harris [address] [place], [address] 06/06/2024 16:47:50 06/06/20 24 06/06/2024 COMPR EHENS CHARLES METAB OLIC PANEL creatinine 4.2 mg/dL 0.70-1 .30 panic high Criti anurag value repor sebastián to and ashu zambrano from [facility] ([facility]) , at 1644 06/06 by LAB.I FELISHA Not Available [address] [place], [address] 06/06/2024 16:47:50 06/06/20 24 06/06/2024 COMPR EHENS CHARLES METAB OLIC PANEL estimated GFR 14.47 mL/min /1.73m 2 The eGFR is calcu [...] young er-ag ed adult s. Not Available [address] [place], [address] 06/06/2024 16:47:50 06/06/20 24 06/06/2024 COMPR EHENS CHARLES METAB OLIC PANEL total protein 6.9 g/dL 6.4-8. 2 normal Not Available [address] [place], [address] 06/06/2024 16:47:50 06/06/20 24 06/06/2024 COMPR EHENS CHARLES METAB OLIC PANEL albumin 1.7 g/dL 3.4-5. 0 low Not Available [address] [place], [address] 06/06/2024 16:47:50 06/06/20 24 06/06/2024 COMPR EHENS CHARLES METAB OLIC PANEL bilirubin, total 0.13 mg/dL 0.2-1. 0 low Not Available [address] [place], [address] 06/06/2024 16:47:50 06/06/20 24 06/06/2024 COMPR EHENS CHARLES METAB OLIC PANEL alk phos 112 U/L 46-116 normal Not Available [address] [place], [address] 06/06/2024 16:47:50 06/06/20 24 06/06/2024 COMPR EHENS CHARLES METAB OLIC PANEL sodium 135 mmol/ L 136-14 5 low Not Available [address] [place], [address] 06/06/2024 16:47:50 06/06/20 24 06/06/2024 COMPR EHENS CHARLES METAB OLIC PANEL potassium 4.0 mmol/ L 3.5-5. 1 normal Not Available [address] [place], [address] 06/06/2024 16:47:50 06/06/20 24 06/06/2024 COMPR EHENS CHARLES METAB OLIC PANEL chloride 101 mmol/ L 98-107 normal Not Available [address] [place], [address] 06/06/2024 16:47:50 06/06/20 24 06/06/2024 COMPR EHENS CHARLES METAB OLIC PANEL CO2 24.0 mmol/ L 21.0-3 2.0 normal Not Available [address] [place], [address] 06/06/2024 16:47:50 06/06/20 24 06/06/2024 COMPR EHENS CHARLES METAB OLIC PANEL anion gap 10.0 mmol/ L 3-11 normal Not Available [address] [place], [address] 06/06/2024 16:47:50 06/06/20 24 06/06/2024 COMPR EHENS CHARLES METAB OLIC PANEL AST 10 U/L 15-37 low Not Available Jaymie [address] [place], [address] 06/06/2024 16:47:50 06/06/20 24 06/06/2024 COMPR EHENS CHARLES METAB OLIC PANEL ALT 17 U/L 16-63 normal Not Available Jaymie [address] [place], [address] 06/06/2024 16:47:50 06/06/20 24 06/06/2024 MAGNE SIUM magnesium 1.8 mg/dL 1.8-2. 4 normal Not Available [address] [place], [address] 06/06/2024 16:47:51 06/06/20 24 06/06/2024 TROPO TI I troponin I < 50 NG/L < or =60 Not Available [address] [place], [address] 06/06/2024 16:47:51 06/06/20 24 06/06/2024 NT-DC OBNP nt-probnp 7467 pg/mL <300 high NT-pr oBNP value s [...] false negat charles resul ts. Not Available [address] [place], [address] 06/06/2024 16:47:51 06/06/20 24 06/06/2024 COVID /FLU/ RSV PCR source Nasrachel holm Not Available [address] [place], [address] 06/06/2024 17:59:01 06/06/20 24 06/06/2024 COVID /FLU/ RSV PCR covid-19 PCR Negati ve negati ve This test has not been FDA clear ed or appro sheldon. This test has been autho rized by the FDA under an Emerg ency Use Autho rizat ion for use by autho rized labor atori es. This test has been autho rized only for detec tion of nucle ic acid from the 2018 novel coron a virus (2018nCoV ), influ sushila A, influ sushila B, [...] detec tion and/o r diagn osis of under secti on 564(b )(1) of Act, 21 U.S.C ??? 360bb b-3(b )(1), unles s the autho rizat ion is termi nated or revok ed soone r. Negat charles resul ts do not precl ude nCoV, influ sushila, and/o r RSV infec tion and shoul d not be used as the sole basis for treat ment or other patie nt manag ement decis ions. Negat charles resul ts must be combi randa with clini anurag obser vatio ns, patie nt histo ry, and epide miolo gical infor matio n. Testi ng perfo rmed at [facility] (CLIA #[id number]) on the Videoflow id GeneX pert. Not Available [address] [place], [address] 06/06/2024 17:59:01 06/06/20 24 06/06/2024 COVID /FLU/ RSV PCR influenza A PCR Negati ve negati ve Not Available [address] [place], [address] 06/06/2024 17:59:01 06/06/20 24 06/06/2024 COVID /FLU/ RSV PCR influenza B PCR Negati ve negati ve Not Available [address] [place], [address] 06/06/2024 17:59:01 06/06/20 24 06/06/2024 COVID /FLU/ RSV PCR RSV PCR Negati ve negati ve Not Available [address] [place], [address] 06/06/2024 17:59:01 06/06/20 24 06/06/2024 TROPO TI I troponin I < 50 NG/L < or =60 Not Available [address] [place], [address] 06/06/2024 20:07:17 06/06/20 24 06/06/2024 HEMOG LOBIN /LINDA TOCRI T HGB 7.2 g/dL 13.5-1 7.5 low Not Available [address] [place], [address] 06/06/2024 21:51:28 06/06/20 24 06/06/2024 HEMOG LOBIN /LINDA TOCRI T HCT 22.4 % 40.0-5 0.0 low Not Available [address] [place], [address] 06/06/2024 21:51:28 06/06/2006/07/2024 MRSA PCR MRSA PCR Negati ve negati ve Not Available [address] [place], [address] 06/07/2024 00:38:40 06/07/2006/07/2024 COMPL ETE BLOOD COUNT W/DIF F WBC 7.04 10_3/ uL 4.4-10 .8 normal Not Available [address] [place], [address] 06/07/2024 06:44:14 06/07/2006/07/2024 COMPL ETE BLOOD COUNT W/DIF F RBC 2.37 10_6/ uL 4.36-5 .78 low Not Available [address] [place], [address] 06/07/2024 06:44:14 06/07/2006/07/2024 COMPL ETE BLOOD COUNT W/DIF F HGB 6.8 g/dL 13.5-1 7.5 critical low Criti anurag value repor sebastián to and readb ack from [facility]ICKIE LE, JACKIE at 0638 06/07 by LAB.M CGD Not Available [address] [place], [address] 06/07/2024 06:44:14 06/07/2006/07/2024 COMPL ETE BLOOD COUNT W/DIF F HCT 21.6 % 40.0-5 0.0 low Not Available [address] [place], [address] 06/07/2024 06:44:14 06/07/2006/07/2024 COMPL ETE BLOOD COUNT W/DIF F MCV 91 fL 80-95 normal Not Available Jaymie harris [address] [place], [address] 06/07/2024 06:44:14 06/07/2006/07/2024 COMPL ETE BLOOD COUNT W/DIF F MCH 28.7 pg 27.0-3 3.0 normal Not Available [address] [place], [address] 06/07/2024 06:44:14 06/07/2006/07/2024 COMPL ETE BLOOD COUNT W/DIF F MCHC 31.5 % 32.0-3 6.0 low Not Available [address] [place], [address] 06/07/2024 06:44:14 06/07/2006/07/2024 COMPL ETE BLOOD COUNT W/DIF F RDW 16.2 % 11.8-1 4.1 high Not Available [address] [place], [address] 06/07/2024 06:44:14 06/07/2006/07/2024 COMPL ETE BLOOD COUNT W/DIF F platelet count 275 10_3/ uL 130-40 0 normal Not Available [address] [place], [address] 06/07/2024 06:44:14 06/07/2006/07/2024 COMPL ETE BLOOD COUNT W/DIF F MPV 10.1 fL 8.0-11 .0 normal Not Available [address] [place], [address] 06/07/2024 06:44:14 06/07/2006/07/2024 COMPL ETE BLOOD COUNT W/DIF F neutrophils % 63.9 % Not Available [address] [place], [address] 06/07/2024 06:44:14 06/07/2006/07/2024 COMPL ETE BLOOD COUNT W/DIF F lymphocytes % 13.1 % Not Available [address] [place], [address] 06/07/2024 06:44:14 06/07/2006/07/2024 COMPL ETE BLOOD COUNT W/DIF F monocytes % 16.1 % Not Available [address] [place], [address] 06/07/2024 06:44:14 06/07/2006/07/2024 COMPL ETE BLOOD COUNT W/DIF F eosinophils % 6.0 % Not Available [address] [place], [address] 06/07/2024 06:44:14 06/07/2006/07/2024 COMPL ETE BLOOD COUNT W/DIF F basophils % 0.6 % Not Available [address] [place], [address] 06/07/2024 06:44:14 06/07/2006/07/2024 COMPL ETE BLOOD COUNT W/DIF F immature grans % 0.3 % Not Available [address] [place], [address] 06/07/2024 06:44:14 06/07/2006/07/2024 COMPL ETE BLOOD COUNT W/DIF F nucleated RBC 0.0 % 0.0-0. 3 normal Not Available [address] [place], [address] 06/07/2024 06:44:14 06/07/2006/07/2024 COMPL ETE BLOOD COUNT W/DIF F absolute neutrophil count 4.51 10_3/ uL 1.2-6. 7 normal Not Available [address] [place], [address] 06/07/2024 06:44:14 06/07/2006/07/2024 COMPL ETE BLOOD COUNT W/DIF F absolute lymphocyte count 0.92 10_3/ uL 1.2-3. 4 low Not Available [address] [place], [address] 06/07/2024 06:44:14 06/07/2006/07/2024 COMPL ETE BLOOD COUNT W/DIF F absolute monocyte count 1.13 10_3/ uL 0.1-0. 8 high Not Available [address] [place], [address] 06/07/2024 06:44:14 06/07/2006/07/2024 COMPL ETE BLOOD COUNT W/DIF F absolute eosinophil count 0.42 10_3/ uL 0.0-0. 7 normal Not Available [address] [place], [address] 06/07/2024 06:44:14 06/07/20 24 06/07/2024 COMPL ETE BLOOD COUNT W/DIF F absolute basophil count 0.04 10_3/ uL 0.0-0. 2 normal Not Available [address] [place], [address] 06/07/2024 06:44:14 06/07/20 24 06/07/2024 BASIC METAB OLIC PANEL calcium 9.0 mg/dL 8.5-10 .1 normal Not Available [address] [place], [address] 06/07/2024 06:50:14 06/07/2006/07/2024 BASIC METAB OLIC PANEL glucose 109 mg/dL 74-106 high Not Available Jaymie harris [address] [place], [address] 06/07/2024 06:50:14 06/07/20 24 06/07/2024 BASIC METAB OLIC PANEL BUN 69 mg/dL 7-18 high Not Available Jaymie harris [address] [place], [address] 06/07/2024 06:50:14 06/07/2006/07/2024 BASIC METAB OLIC PANEL creatinine 3.9 mg/dL 0.70-1 .30 panic high Criti anurag value repor sebastián to and readb ack from VICKIE OJEDA , [employer] INSPECTOR at 0647 06/07 by LAB.M ARC Not Available [address] [facility] [place], [address] 06/07/2024 06:50:14 06/07/20 24 06/07/2024 BASIC METAB OLIC PANEL estimated GFR 15.81 mL/min /1.73m 2 The eGFR is calcu [...] young er-ag ed adult s. Not Available [address] [place], [address] 06/07/2024 06:50:14 06/07/2006/07/2024 BASIC METAB OLIC PANEL sodium 137 mmol/ L 136-14 5 normal Not Available [address] [place], [address] 06/07/2024 06:50:14 06/07/2006/07/2024 BASIC METAB OLIC PANEL potassium 3.8 mmol/ L 3.5-5. 1 normal Not Available [address] [place], [address] 06/07/2024 06:50:14 06/07/2006/07/2024 BASIC METAB OLIC PANEL chloride 102 mmol/ L 98-107 normal Not Available [address] [place], [address] 06/07/2024 06:50:14 06/07/2006/07/2024 BASIC METAB OLIC PANEL CO2 26.2 mmol/ L 21.0-3 2.0 normal Not Available [address] [place], [address] 06/07/2024 06:50:14 06/07/2006/07/2024 BASIC METAB OLIC PANEL anion gap 8.8 mmol/ L 3-11 normal Not Available [address] [place], [address] 06/07/2024 06:50:14 06/07/2006/07/2024 HEMOG LOBIN A1C hemoglobin A1C 6.4 % <5.7 high Refer ence Range s <5.7 Madeline l 5.7-6 .4% Predi abete s 6.5% or great er Diagn ostic for diabe johnny (if confi rmed) Refer ences : 1. Ameri can Diabe johnny Assoc iatio n. Clas sific ation and Diagn osis of Diabe johnny. Diabe johnny Care 2019 Oct;4 2(Sup pleme nt 1):S1 3-s28 . Not Available [address] [place], [address] 06/07/2024 07:15:17 06/07/20 24 06/07/2024 HEMOG LOBIN /LINDA TOCRI T HGB 7.6 g/dL 13.5-1 7.5 low Not Available [address] [place], [address] 06/07/2024 13:32:48 06/07/20 24 06/07/2024 HEMOG LOBIN /LINDA TOCRI T HCT 23.7 % 40.0-5 0.0 low Not Available [address] [place], [address] 06/07/2024 13:32:48 06/07/2006/07/2024 HEMOG LOBIN /LINDA TOCRI T HGB 7.5 g/dL 13.5-1 7.5 low Resul t verif ied by repea t otoniel sis Not Available [address] [place], [address] 06/07/2024 17:13:11 06/07/20 24 06/07/2024 HEMOG LOBIN /LINDA TOCRI T HCT 23.1 % 40.0-5 0.0 low Not Available [address] [place], [address] 06/07/2024 17:13:11 06/07/20 24 06/07/2024 HEMOG LOBIN /LINDA TOCRI T HGB 7.6 g/dL 13.5-1 7.5 low Not Available [address] [place], [address] 06/07/2024 22:03:29 06/07/20 24 06/07/2024 HEMOG LOBIN /LINDA TOCRI T HCT 23.9 % 40.0-5 0.0 low Not Available [address] [place], [address] 06/07/2024 22:03:29 06/08/20 24 06/08/2024 COMPL ETE BLOOD COUNT W/DIF F WBC 7.74 10_3/ uL 4.4-10 .8 normal Not Available [address] [place], [address] 06/08/2024 06:59:47 06/08/2006/08/2024 COMPL ETE BLOOD COUNT W/DIF F RBC 2.77 10_6/ uL 4.36-5 .78 low Not Available [address] [place], [address] 06/08/2024 06:59:47 06/08/2006/08/2024 COMPL ETE BLOOD COUNT W/DIF F HGB 8.0 g/dL 13.5-1 7.5 low Not Available [address] [place], [address] 06/08/2024 06:59:47 06/08/2006/08/2024 COMPL ETE BLOOD COUNT W/DIF F HCT 24.9 % 40.0-5 0.0 low Not Available [address] [place], [address] 06/08/2024 06:59:47 06/08/20 24 06/08/2024 COMPL ETE BLOOD COUNT W/DIF F MCV 90 fL 80-95 normal Not Available [address] [place], [address] 06/08/2024 06:59:47 06/08/2006/08/2024 COMPL ETE BLOOD COUNT W/DIF F MCH 28.9 pg 27.0-3 3.0 normal Not Available [address] [place], [address] 06/08/2024 06:59:47 06/08/20 24 06/08/2024 COMPL ETE BLOOD COUNT W/DIF F MCHC 32.1 % 32.0-3 6.0 normal Not Available [address] [place], [address] 06/08/2024 06:59:47 06/08/20 24 06/08/2024 COMPL ETE BLOOD COUNT W/DIF F RDW 16.3 % 11.8-1 4.1 high Not Available [address] [place], [address] 06/08/2024 06:59:47 06/08/2006/08/2024 COMPL ETE BLOOD COUNT W/DIF F platelet count 299 10_3/ uL 130-40 0 normal Not Available [address] [place], [address] 06/08/2024 06:59:47 06/08/2006/08/2024 COMPL ETE BLOOD COUNT W/DIF F MPV 10.2 fL 8.0-11 .0 normal Not Available [address] [place], [address] 06/08/2024 06:59:47 06/08/2006/08/2024 COMPL ETE BLOOD COUNT W/DIF F neutrophils % 67.0 % Not Available [address] [place], [address] 06/08/2024 06:59:47 06/08/2006/08/2024 COMPL ETE BLOOD COUNT W/DIF F lymphocytes % 12.0 % Not Available [address] [place], [address] 06/08/2024 06:59:47 06/08/2006/08/2024 COMPL ETE BLOOD COUNT W/DIF F monocytes % 14.6 % Not Available [address] [place], [address] 06/08/2024 06:59:47 06/08/2006/08/2024 COMPL ETE BLOOD COUNT W/DIF F eosinophils % 5.4 % Not Available [address] [place], [address] 06/08/2024 06:59:47 06/08/2006/08/2024 COMPL ETE BLOOD COUNT W/DIF F basophils % 0.6 % Not Available [address] [place], [address] 06/08/2024 06:59:47 06/08/2006/08/2024 COMPL ETE BLOOD COUNT W/DIF F immature grans % 0.4 % Not Available [address] [place], [address] 06/08/2024 06:59:47 06/08/2006/08/2024 COMPL ETE BLOOD COUNT W/DIF F nucleated RBC 0.0 % 0.0-0. 3 normal Not Available [address] [place], [address] 06/08/2024 06:59:47 06/08/20 24 06/08/2024 COMPL ETE BLOOD COUNT W/DIF F absolute neutrophil count 5.18 10_3/ uL 1.2-6. 7 normal Not Available [address] [place], [address] 06/08/2024 06:59:47 06/08/20 24 06/08/2024 COMPL ETE BLOOD COUNT W/DIF F absolute lymphocyte count 0.93 10_3/ uL 1.2-3. 4 low Not Available [address] [place], [address] 06/08/2024 06:59:47 06/08/20 24 06/08/2024 COMPL ETE BLOOD COUNT W/DIF F absolute monocyte count 1.13 10_3/ uL 0.1-0. 8 high Not Available [address] [place], [address] 06/08/2024 06:59:47 06/08/2006/08/2024 COMPL ETE BLOOD COUNT W/DIF F absolute eosinophil count 0.42 10_3/ uL 0.0-0. 7 normal Not Available [address] [place], [address] 06/08/2024 06:59:47 06/08/20 24 06/08/2024 COMPL ETE BLOOD COUNT W/DIF F absolute basophil count 0.05 10_3/ uL 0.0-0. 2 normal Not Available [address] [place], [address] 06/08/2024 06:59:47 06/08/2006/08/2024 COMPR EHENS CHARLES METAB OLIC PANEL calcium 9.1 mg/dL 8.5-10 .1 normal Not Available [address] [place], [address] 06/08/2024 07:07:49 06/08/20 06/08/2024 COMPR EHENS CHARLES METAB OLIC PANEL glucose 113 mg/dL 74-106 high Not Available Jaymie harris [address] [place], [address] 06/08/2024 07:07:49 06/08/20 24 06/08/2024 COMPR EHENS CHARLES METAB OLIC PANEL BUN 67 mg/dL 7-18 high Not Available Jaymie harris [address] [place], [address] 06/08/2024 07:07:49 06/08/20 24 06/08/2024 COMPR EHENS CHARLES METAB OLIC PANEL creatinine 3.4 mg/dL 0.70-1 .30 high Not Available [address] [place], [address] 06/08/2024 07:07:49 06/08/20 24 06/08/2024 COMPR EHENS CHARLSE METAB OLIC PANEL estimated GFR 18.64 mL/min /1.73m 2 The eGFR is calcu [...] young er-ag ed adult s. Not Available [address] [place], [address] 06/08/2024 07:07:49 06/08/20 24 06/08/2024 COMPR EHENS CHARLES METAB OLIC PANEL total protein 6.9 g/dL 6.4-8. 2 normal Not Available [address] [place], [address] 06/08/2024 07:07:49 06/08/20 24 06/08/2024 COMPR EHENS CHARLES METAB OLIC PANEL albumin 1.7 g/dL 3.4-5. 0 low Not Available [address] [place], [address] 06/08/2024 07:07:49 06/08/2006/08/2024 COMPR EHENS CHARLES METAB OLIC PANEL bilirubin, total 0.31 mg/dL 0.2-1. 0 normal Not Available [address] [place], [address] 06/08/2024 07:07:49 06/08/2006/08/2024 COMPR EHENS CHARLES METAB OLIC PANEL alk phos 97 U/L 46-116 normal Not Available [address] [place], [address] 06/08/2024 07:07:49 06/08/2006/08/2024 COMPR EHENS CHARLES METAB OLIC PANEL sodium 137 mmol/ L 136-14 5 normal Not Available [address] [place], [address] 06/08/2024 07:07:49 06/08/2006/08/2024 COMPR EHENS CHARLES METAB OLIC PANEL potassium 3.7 mmol/ L 3.5-5. 1 normal Not Available [address] [place], [address] 06/08/2024 07:07:49 06/08/2006/08/2024 COMPR EHENS CHARLES METAB OLIC PANEL chloride 101 mmol/ L 98-107 normal Not Available [address] [place], [address] 06/08/2024 07:07:49 06/08/2006/08/2024 COMPR EHENS CHARLES METAB OLIC PANEL CO2 27.7 mmol/ L 21.0-3 2.0 normal Not Available [address] [place], [address] 06/08/2024 07:07:49 06/08/2006/08/2024 COMPR EHENS CHARLES METAB OLIC PANEL anion gap 8.3 mmol/ L 3-11 normal Not Available [address] [place], [address] 06/08/2024 07:07:49 06/08/2006/08/2024 COMPR EHENS CHARLES METAB OLIC PANEL AST 19 U/L 15-37 normal Not Available Jaymie harris [address] [place], [address] 06/08/2024 07:07:49 06/08/20 24 06/08/2024 COMPR EHENS CHARLES METAB OLIC PANEL ALT 14 U/L 16-63 low Not Available Jaymie harris [address] [place], [address] 06/08/2024 07:07:49 06/08/20 24 06/08/2024 HEMOG LOBIN /LINDA TOCRI T HGB 8.3 g/dL 13.5-1 7.5 low Not Available [address] [place], [address] 06/08/2024 17:57:55 06/08/20 24 06/08/2024 HEMOG LOBIN /LINDA TOCRI T HCT 26.2 % 40.0-5 0.0 low Not Available [address] [place], [address] 06/08/2024 17:57:55 06/09/20 24 06/09/2024 COMPL ETE BLOOD COUNT W/DIF F WBC 7.94 10_3/ uL 4.4-10 .8 normal Not Available [address] [place], [address] 06/09/2024 06:08:24 06/09/20 24 06/09/2024 COMPL ETE BLOOD COUNT W/DIF F RBC 2.84 10_6/ uL 4.36-5 .78 low Not Available [address] [place], [address] 06/09/2024 06:08:24 06/09/20 24 06/09/2024 COMPL ETE BLOOD COUNT W/DIF F HGB 8.1 g/dL 13.5-1 7.5 low Not Available [address] [place], [address] 06/09/2024 06:08:24 06/09/20 24 06/09/2024 COMPL ETE BLOOD COUNT W/DIF F HCT 25.8 % 40.0-5 0.0 low Not Available [address] [place], [address] 06/09/2024 06:08:24 06/09/20 24 06/09/2024 COMPL ETE BLOOD COUNT W/DIF F MCV 91 fL 80-95 normal Not Available Jaymie [address] [place], [address] 06/09/2024 06:08:24 06/09/20 24 06/09/2024 COMPL ETE BLOOD COUNT W/DIF F MCH 28.5 pg 27.0-3 3.0 normal Not Available [address] [place], [address] 06/09/2024 06:08:24 06/09/20 24 06/09/2024 COMPL ETE BLOOD COUNT W/DIF F MCHC 31.4 % 32.0-3 6.0 low Not Available [address] [place], [address] 06/09/2024 06:08:24 06/09/20 24 06/09/2024 COMPL ETE BLOOD COUNT W/DIF F RDW 16.0 % 11.8-1 4.1 high Not Available [address] [place], [address] 06/09/2024 06:08:24 06/09/20 24 06/09/2024 COMPL ETE BLOOD COUNT W/DIF F platelet count 318 10_3/ uL 130-40 0 normal Not Available [address] [place], [address] 06/09/2024 06:08:24 06/09/20 24 06/09/2024 COMPL ETE BLOOD COUNT W/DIF F MPV 10.1 fL 8.0-11 .0 normal Not Available [address] [place], [address] 06/09/2024 06:08:24 06/09/20 24 06/09/2024 COMPL ETE BLOOD COUNT W/DIF F neutrophils % 61.0 % Not Available Jory morales [address] [place], [address] 06/09/2024 06:08:24 06/09/20 24 06/09/2024 COMPL ETE BLOOD COUNT W/DIF F lymphocytes % 15.2 % Not Available [address] [place], [address] 06/09/2024 06:08:24 06/09/20 24 06/09/2024 COMPL ETE BLOOD COUNT W/DIF F monocytes % 17.6 % Not Available [address] [place], [id number] 06/09/2024 06:08:24 06/09/20 24 06/09/2024 COMPL ETE BLOOD COUNT W/DIF F eosinophils % 5.4 % Not Available [address] [place], [id number] 06/09/2024 06:08:24 06/09/20 24 06/09/2024 COMPL ETE BLOOD COUNT W/DIF F basophils % 0.5 % Not Available [address] [place], [address] 06/09/2024 06:08:24 06/09/20 24 06/09/2024 COMPL ETE BLOOD COUNT W/DIF F immature grans % 0.3 % Not Available [address] [place], [id number] 06/09/2024 06:08:24 06/09/20 24 06/09/2024 COMPL ETE BLOOD COUNT W/DIF F nucleated RBC 0.0 % 0.0-0. 3 normal Not Available [address] [place], [id number] 06/09/2024 06:08:24 06/09/20 24 06/09/2024 COMPL ETE BLOOD COUNT W/DIF F absolute neutrophil count 4.84 10_3/ uL 1.2-6. 7 normal Not Available [address] [place], [id number] 06/09/2024 06:08:24 06/09/20 24 06/09/2024 COMPL ETE BLOOD COUNT W/DIF F absolute lymphocyte count 1.21 10_3/ uL 1.2-3. 4 normal Not Available [address] [place], [address] 06/09/2024 06:08:24 06/09/20 24 06/09/2024 COMPL ETE BLOOD COUNT W/DIF F absolute monocyte count 1.40 10_3/ uL 0.1-0. 8 high Not Available [address] [place], [id number] 06/09/2024 06:08:24 06/09/20 24 06/09/2024 COMPL ETE BLOOD COUNT W/DIF F absolute eosinophil count 0.43 10_3/ uL 0.0-0. 7 normal Not Available [address] [place], [address] 06/09/2024 06:08:24 06/09/20 24 06/09/2024 COMPL ETE BLOOD COUNT W/DIF F absolute basophil count 0.04 10_3/ uL 0.0-0. 2 normal Not Available [address] [place], [address] 06/09/2024 06:08:24 06/09/20 24 06/09/2024 MAGNE SIUM magnesium 1.5 mg/dL 1.8-2. 4 low Not Available [address] [place], [address] 06/09/2024 06:21:25 06/09/20 24 06/09/2024 PHOSP HORUS phosphorus 5.2 mg/dL 2.6-4. 7 high Not Available [address] [place], [address] 06/09/2024 06:24:25 06/09/20 24 06/09/2024 BASIC METAB OLIC PANEL calcium 9.1 mg/dL 8.5-10 .1 normal Not Available [address] [place], [address] 06/09/2024 06:33:27 06/09/20 24 06/09/2024 BASIC METAB OLIC PANEL glucose 103 mg/dL 74-106 normal Not Available [address] [place], [address] 06/09/2024 06:33:27 06/09/20 24 06/09/2024 BASIC METAB OLIC PANEL BUN 73 mg/dL 7-18 high Not Available Jaymie harris [address] [place], [address] 06/09/2024 06:33:27 06/09/20 24 06/09/2024 BASIC METAB OLIC PANEL creatinine 3.4 mg/dL 0.70-1 .30 high Not Available [address] [place], [address] 06/09/2024 06:33:27 06/09/20 24 06/09/2024 BASIC METAB OLIC PANEL estimated GFR 18.64 mL/min /1.73m 2 The eGFR is calcu [...] young er-ag ed adult s. Not Available [address] [place], [address] 06/09/2024 06:33:27 06/09/20 24 06/09/2024 BASIC METAB OLIC PANEL sodium 139 mmol/ L 136-14 5 normal Not Available [address] [place], [address] 06/09/2024 06:33:27 06/09/20 24 06/09/2024 BASIC METAB OLIC PANEL potassium 3.7 mmol/ L 3.5-5. 1 normal Not Available [address] [place], [address] 06/09/2024 06:33:27 06/09/20 24 06/09/2024 BASIC METAB OLIC PANEL chloride 102 mmol/ L 98-107 normal Not Available [address] [place], [address] 06/09/2024 06:33:27 06/09/20 24 06/09/2024 BASIC METAB OLIC PANEL CO2 30.5 mmol/ L 21.0-3 2.0 normal Not Available [address] [place], [address] 06/09/2024 06:33:27 06/09/20 24 06/09/2024 BASIC METAB OLIC PANEL anion gap 6.5 mmol/ L 3-11 normal Not Available [address] [place], [address] 06/09/2024 06:33:27 06/09/20 24 06/09/2024 VITAM IN B12 vitamin B12 574 pg/mL 193-98 6 normal Not Available [address] [place], [address] 06/09/2024 06:56:27 06/09/20 24 06/09/2024 FOLAT E folate 11.0 NG/mL 8.6-20 .0 normal Not Available [address] [place], [address] 06/09/2024 06:56:28 06/09/2006/09/2024 HOMOC YSTEI NE homocysteine 19.9 umol/ L 5.0-13 .9 abnormal Resul ts may be false ly eleva sebastián if sampl e is not colle cted on ice or is not remov ed from cells withi n 1 hour of colle ction . Refer ence range may not apply to non-f astin g sampl es. It is not recom atif d that EDTA plasm a and serum from the same patie nt be used inter araujo eably . Serum lisandro ntrat ions have been obser sheldon to be up to 10% highe r than EDTA plasm a. Refer ence range may not apply to serum resul ts. Test perfo rmed or refer red by [facility] [address], [place] [address] Not Available [address] [place], [address] 06/10/2024 08:21:40 06/09/20 24 06/09/2024 HOMOC YSTEI NE homocysteine 19.9 umol/ L 5.0-13 .9 abnormal Resul ts may be false ly eleva sebastián if sampl e is not colle cted on ice or is not remov ed from cells withi n 1 hour of colle ction . Refer ence range may not apply to non-f astin g sampl es. It is not recom atif d that EDTA plasm a and serum from the same patie nt be used inter araujo eably . Serum lisandro ntrat ions have been obser sheldon to be up to 10% highe r than EDTA plasm a. Refer ence range may not apply to serum resul ts. Test perfo rmed or refer red by [facility] [address], [place] [address] Not Available [address] [place], [address] 06/12/2024 16:35:52 06/09/20 24 06/12/2024 METHY LMALO ELIA ACID methylmaloni c acid 0.43 nmol/ mL <=0.40 abnormal In this sampl e, the lisandro ntrat ion of methy lmalo elia acid (MMA) was minim ally eleva sebastián. As the upper limit of the refer ence range varie s in diffe rent labor atori es from 0.4 to 0.6 nmol/ mL. This findi ng could be consi dered madeline l, espec ially if the patie nt does not show other signs of vitam in B12 defic iency . ----- ----- ----- ----A DDITI ONAL INFOR MATIO N---- ----- ----- ----- This test was devel oped and its perfo rmanc e lexis cteri stics deter mined by Snowden Leonid montgomery in a adam r consi stent with CLIA requi remen ts. This test has not been clear ed or appro sheldon by the U.[place]. Food and Drug Admin istra tion. Test Perfo rmed by: [facility] [address], [place] [address] Lab Direc tor: Tamika Christianson nn Ph.D. ; CLIA# [id number] Not Available [address] [place], [address] 06/12/2024 16:35:53 06/10/20 24 06/10/2024 COMPL ETE BLOOD COUNT NO DIFF WBC 7.65 10_3/ uL 4.4-10 .8 normal Not Available [address] [place], [address] 06/10/2024 06:42:32 06/10/20 24 06/10/2024 COMPL ETE BLOOD COUNT NO DIFF RBC 2.76 10_6/ uL 4.36-5 .78 low Not Available [address] [place], [address] 06/10/2024 06:42:32 06/10/20 24 06/10/2024 COMPL ETE BLOOD COUNT NO DIFF HGB 7.9 g/dL 13.5-1 7.5 low Not Available [address] [place], [address] 06/10/2024 06:42:32 06/10/20 24 06/10/2024 COMPL ETE BLOOD COUNT NO DIFF HCT 24.8 % 40.0-5 0.0 low Not Available [address] [place], [address] 06/10/2024 06:42:32 06/10/20 24 06/10/2024 COMPL ETE BLOOD COUNT NO DIFF MCV 90 fL 80-95 normal Not Available [address] [place], [address] 06/10/2024 06:42:32 06/10/20 24 06/10/2024 COMPL ETE BLOOD COUNT NO DIFF MCH 28.6 pg 27.0-3 3.0 normal Not Available [address] [place], [address] 06/10/2024 06:42:32 06/10/20 24 06/10/2024 COMPL ETE BLOOD COUNT NO DIFF MCHC 31.9 % 32.0-3 6.0 low Not Available [address] [place], [address] 06/10/2024 06:42:32 06/10/20 24 06/10/2024 COMPL ETE BLOOD COUNT NO DIFF RDW 15.9 % 11.8-1 4.1 high Not Available [address] [place], [address] 06/10/2024 06:42:32 06/10/20 24 06/10/2024 COMPL ETE BLOOD COUNT NO DIFF platelet count 316 10_3/ uL 130-40 0 normal Not Available [address] [place], [address] 06/10/2024 06:42:32 06/10/20 24 06/10/2024 COMPL ETE BLOOD COUNT NO DIFF MPV 10.1 fL 8.0-11 .0 normal Not Available [address] [place], [address] 06/10/2024 06:42:32 06/10/20 24 06/10/2024 BASIC METAB OLIC PANEL calcium 9.2 mg/dL 8.5-10 .1 normal Not Available [address] [place], [address] 06/10/2024 07:00:34 06/10/20 24 06/10/2024 BASIC METAB OLIC PANEL glucose 112 mg/dL 74-106 high Not Available Jaymie harris [address] [place], [address] 06/10/2024 07:00:34 06/10/2006/10/2024 BASIC METAB OLIC PANEL BUN 84 mg/dL 7-18 panic high Criti anurag value repor sebastián to and readb ack from JUDY LUCERO,RN at 0656 06/10 by LAB.Narcisa HOLLEY Not Available [address] [place], [address] 06/10/2024 07:00:34 06/10/20 24 06/10/2024 BASIC METAB OLIC PANEL creatinine 3.4 mg/dL 0.70-1 .30 high Not Available [address] [place], [address] 06/10/2024 07:00:34 06/10/20 24 06/10/2024 BASIC METAB OLIC PANEL estimated GFR 18.64 mL/min /1.73m 2 The eGFR is calcu [...] young er-ag ed adult s. Not Available [address] [place], [address] 06/10/2024 07:00:34 06/10/20 24 06/10/2024 BASIC METAB OLIC PANEL sodium 142 mmol/ L 136-14 5 normal Not Available [address] [place], [address] 06/10/2024 07:00:34 06/10/20 24 06/10/2024 BASIC METAB OLIC PANEL potassium 3.7 mmol/ L 3.5-5. 1 normal Not Available [address] [place], [address] 06/10/2024 07:00:34 06/10/20 24 06/10/2024 BASIC METAB OLIC PANEL chloride 101 mmol/ L 98-107 normal Not Available [address] [place], [address] 06/10/2024 07:00:34 06/10/20 24 06/10/2024 BASIC METAB OLIC PANEL CO2 32.3 mmol/ L 21.0-3 2.0 high Not Available [address] [place], [address] 06/10/2024 07:00:34 06/10/20 24 06/10/2024 BASIC METAB OLIC PANEL anion gap 8.7 mmol/ L 3-11 normal Not Available [address] [place], [address] 06/10/2024 07:00:34 06/11/20 24 06/11/2024 COMPL ETE BLOOD COUNT NO DIFF WBC 7.75 10_3/ uL 4.4-10 .8 normal Not Available [address] [place], [address] 06/11/2024 06:28:05 06/11/20 24 06/11/2024 COMPL ETE BLOOD COUNT NO DIFF RBC 2.93 10_6/ uL 4.36-5 .78 low Not Available [address] [place], [address] 06/11/2024 06:28:05 06/11/20 24 06/11/2024 COMPL ETE BLOOD COUNT NO DIFF HGB 8.4 g/dL 13.5-1 7.5 low Not Available [address] [place], [address] 06/11/2024 06:28:05 06/11/20 24 06/11/2024 COMPL ETE BLOOD COUNT NO DIFF HCT 26.8 % 40.0-5 0.0 low Not Available [address] [place], [address] 06/11/2024 06:28:05 06/11/20 24 06/11/2024 COMPL ETE BLOOD COUNT NO DIFF MCV 92 fL 80-95 normal Not Available Jaymie [address] [place], [address] 06/11/2024 06:28:05 06/11/20 24 06/11/2024 COMPL ETE BLOOD COUNT NO DIFF MCH 28.7 pg 27.0-3 3.0 normal Not Available [address] [place], [address] 06/11/2024 06:28:05 06/11/20 24 06/11/2024 COMPL ETE BLOOD COUNT NO DIFF MCHC 31.3 % 32.0-3 6.0 low Not Available [address] [place], [address] 06/11/2024 06:28:05 06/11/20 24 06/11/2024 COMPL ETE BLOOD COUNT NO DIFF RDW 15.9 % 11.8-1 4.1 high Not Available [address] [place], [address] 06/11/2024 06:28:05 06/11/20 24 06/11/2024 COMPL ETE BLOOD COUNT NO DIFF platelet count 374 10_3/ uL 130-40 0 normal Not Available [address] [place], [address] 06/11/2024 06:28:05 06/11/20 24 06/11/2024 COMPL ETE BLOOD COUNT NO DIFF MPV 10.2 fL 8.0-11 .0 normal Not Available [address] [place], [address] 06/11/2024 06:28:05 06/11/20 24 06/11/2024 BASIC METAB OLIC PANEL calcium 9.4 mg/dL 8.5-10 .1 normal Not Available [address] [place], [address] 06/11/2024 06:32:06 06/11/2006/11/2024 BASIC METAB OLIC PANEL glucose 123 mg/dL 74-106 high Not Available Jaymie harris [address] [place], [address] 06/11/2024 06:32:06 06/11/2006/11/2024 BASIC METAB OLIC PANEL BUN 102 mg/dL 7-18 panic high Criti anurag value repor sebastián to and ashu ack from VICKIE LUCERO RN (ICU) at 0606/11 by LAB.O LAP Not Available [address] [place], [address] 06/11/2024 06:32:06 06/11/20 24 06/11/2024 BASIC METAB OLIC PANEL creatinine 3.5 mg/dL 0.70-1 .30 high Not Available [address] [place], [address] 06/11/2024 06:32:06 06/11/20 24 06/11/2024 BASIC METAB OLIC PANEL estimated GFR 18.01 mL/min /1.73m 2 The eGFR is calcu [...] young er-ag ed adult s. Not Available [address] [place], [address] 06/11/2024 06:32:06 06/11/20 24 06/11/2024 BASIC METAB OLIC PANEL sodium 141 mmol/ L 136-14 5 normal Not Available [address] [place], [address] 06/11/2024 06:32:06 06/11/2006/11/2024 BASIC METAB OLIC PANEL potassium 3.5 mmol/ L 3.5-5. 1 normal Not Available [address] [place], [address] 06/11/2024 06:32:06 06/11/2006/11/2024 BASIC METAB OLIC PANEL chloride 100 mmol/ L 98-107 normal Not Available [address] [place], [address] 06/11/2024 06:32:06 06/11/2006/11/2024 BASIC METAB OLIC PANEL CO2 33.3 mmol/ L 21.0-3 2.0 high Not Available [address] [place], [address] 06/11/2024 06:32:06 06/11/2006/11/2024 BASIC METAB OLIC PANEL anion gap 7.7 mmol/ L 3-11 normal Not Available [address] [place], [address] 06/11/2024 06:32:06 06/11/2006/11/2024 BASIC METAB OLIC PANEL calcium 9.4 mg/dL 8.5-10 .1 normal Not Available [address] [place], [address] 06/11/2024 08:55:30 06/11/20 24 06/11/2024 BASIC METAB OLIC PANEL glucose 123 mg/dL 74-106 high Not Available Jaymie [address] [place], [address] 06/11/2024 08:55:30 06/11/20 24 06/11/2024 BASIC METAB OLIC PANEL BUN 102 mg/dL 7-18 panic high Criti anurag value repor sebastián to and ashu gonzalezk from VICKIE LUCERO RN (ICU) at 0606/11 by LAB.O LAP Not Available [address] [place], [address] 06/11/2024 08:55:30 06/11/2006/11/2024 BASIC METAB OLIC PANEL creatinine 3.5 mg/dL 0.70-1 .30 high Not Available [address] [place], [address] 06/11/2024 08:55:30 06/11/20 24 06/11/2024 BASIC METAB OLIC PANEL estimated GFR 18.01 mL/min /1.73m 2 The eGFR is calcu [...] young er-ag ed adult s. Not Available [address] [place], [address] 06/11/2024 08:55:30 06/11/20 24 06/11/2024 BASIC METAB OLIC PANEL sodium 141 mmol/ L 136-14 5 normal Not Available [address] [place], [address] 06/11/2024 08:55:30 06/11/20 24 06/11/2024 BASIC METAB OLIC PANEL potassium 3.5 mmol/ L 3.5-5. 1 normal Not Available [address] [place], [address] 06/11/2024 08:55:30 06/11/20 24 06/11/2024 BASIC METAB OLIC PANEL chloride 100 mmol/ L 98-107 normal Not Available [address] [place], [address] 06/11/2024 08:55:30 06/11/20 24 06/11/2024 BASIC METAB OLIC PANEL CO2 33.3 mmol/ L 21.0-3 2.0 high Not Available [address] [place], [address] 06/11/2024 08:55:30 06/11/20 24 06/11/2024 BASIC METAB OLIC PANEL anion gap 7.7 mmol/ L 3-11 normal Not Available [address] [place], [address] 06/11/2024 08:55:30 06/11/20 24 06/11/2024 LAB ADD ON TEST lab add on test Done Not Available Jory morales [address] [place], [address] 06/11/2024 08:56:30 06/11/20 24 06/11/2024 BASIC METAB OLIC PANEL calcium 9.4 mg/dL 8.5-10 .1 normal Not Available [address] [place], [address] 06/11/2024 09:07:32 06/11/20 24 06/11/2024 BASIC METAB OLIC PANEL glucose 123 mg/dL 74-106 high Not Available Jaymie harris [address] [place], [address] 06/11/2024 09:07:32 06/11/20 24 06/11/2024 BASIC METAB OLIC PANEL BUN 102 mg/dL 7-18 panic high Criti anurag value repor sebastián to and readb ack from VICKIE LUCERO, RN (ICU) at 0606/11 by LAB.O LAP Not Available [address] [place], [address] 06/11/2024 09:07:32 06/11/20 24 06/11/2024 BASIC METAB OLIC PANEL creatinine 3.5 mg/dL 0.70-1 .30 high Not Available [address] [place], [address] 06/11/2024 09:07:32 06/11/20 24 06/11/2024 BASIC METAB OLIC PANEL estimated GFR 18.01 mL/min /1.73m 2 The eGFR is calcu [...] young er-ag ed adult s. Not Available [address] [place], [address] 06/11/2024 09:07:32 06/11/20 24 06/11/2024 BASIC METAB OLIC PANEL sodium 141 mmol/ L 136-14 5 normal Not Available [address] [place], [address] 06/11/2024 09:07:32 06/11/20 24 06/11/2024 BASIC METAB OLIC PANEL potassium 3.5 mmol/ L 3.5-5. 1 normal Not Available [address] [place], [address] 06/11/2024 09:07:32 06/11/20 24 06/11/2024 BASIC METAB OLIC PANEL chloride 100 mmol/ L 98-107 normal Not Available [address] [place], [address] 06/11/2024 09:07:32 06/11/20 24 06/11/2024 BASIC METAB OLIC PANEL CO2 33.3 mmol/ L 21.0-3 2.0 high Not Available [address] [place], [address] 06/11/2024 09:07:32 06/11/20 24 06/11/2024 BASIC METAB OLIC PANEL anion gap 7.7 mmol/ L 3-11 normal Not Available [address] [place], [address] 06/11/2024 09:07:32 06/11/20 24 06/11/2024 MAGNE SIUM magnesium 1.6 mg/dL 1.8-2. 4 low Not Available [address] [place], [address] 06/11/2024 09:07:33 06/11/20 24 06/11/2024 BASIC METAB OLIC PANEL calcium 9.4 mg/dL 8.5-10 .1 normal Not Available [address] [place], [address] 06/11/2024 14:18:54 06/11/20 24 06/11/2024 BASIC METAB OLIC PANEL glucose 164 mg/dL 74-106 high Not Available Jaymie harris [address] [place], [address] 06/11/2024 14:18:54 06/11/20 24 06/11/2024 BASIC METAB OLIC PANEL BUN 107 mg/dL 7-18 panic high Criti anurag value repor sebastián to and readb ack from maximo simmons rn icu at 1414 06/11 by LAB.C AMS Resul t verif ied by repea t otoniel sis Not Available [address] [place], [address] 06/11/2024 14:18:54 06/11/20 24 06/11/2024 BASIC METAB OLIC PANEL creatinine 3.6 mg/dL 0.70-1 .30 panic high Criti anurag value repor sebastián to and readb ack from maximo simmons rn icu at 1414 06/11 by LAB.C AMS Resul t verif ied by repea t otoniel sis Not Available [address] [place], [address] 06/11/2024 14:18:54 06/11/20 24 06/11/2024 BASIC METAB OLIC PANEL estimated GFR 17.41 mL/min /1.73m 2 The eGFR is calcu [...] young er-ag ed adult s. Not Available [address] [place], [address] 06/11/2024 14:18:54 06/11/20 24 06/11/2024 BASIC METAB OLIC PANEL sodium 139 mmol/ L 136-14 5 normal Not Available [address] [place], [address] 06/11/2024 14:18:54 06/11/20 24 06/11/2024 BASIC METAB OLIC PANEL potassium 3.8 mmol/ L 3.5-5. 1 normal Not Available [address] [place], [address] 06/11/2024 14:18:54 06/11/20 24 06/11/2024 BASIC METAB OLIC PANEL chloride 99 mmol/ L 98-107 normal Not Available [address] [place], [address] 06/11/2024 14:18:54 06/11/20 24 06/11/2024 BASIC METAB OLIC PANEL CO2 33.7 mmol/ L 21.0-3 2.0 high Not Available [address] [place], [address] 06/11/2024 14:18:54 06/11/20 24 06/11/2024 BASIC METAB OLIC PANEL anion gap 6.3 mmol/ L 3-11 normal Not Available [address] [place], [address] 06/11/2024 14:18:54 06/12/20 24 06/12/2024 COMPL ETE BLOOD COUNT NO DIFF WBC 7.12 10_3/ uL 4.4-10 .8 normal Not Available [address] [place], [address] 06/12/2024 06:24:26 06/12/20 24 06/12/2024 COMPL ETE BLOOD COUNT NO DIFF RBC 3.02 10_6/ uL 4.36-5 .78 low Not Available [address] [place], [address] 06/12/2024 06:24:26 06/12/20 24 06/12/2024 COMPL ETE BLOOD COUNT NO DIFF HGB 8.6 g/dL 13.5-1 7.5 low Not Available [address] [place], [address] 06/12/2024 06:24:26 06/12/20 24 06/12/2024 COMPL ETE BLOOD COUNT NO DIFF HCT 27.6 % 40.0-5 0.0 low Not Available [address] [place], [address] 06/12/2024 06:24:26 06/12/20 24 06/12/2024 COMPL ETE BLOOD COUNT NO DIFF MCV 91 fL 80-95 normal Not Available [address] [place], [address] 06/12/2024 06:24:26 06/12/20 24 06/12/2024 COMPL ETE BLOOD COUNT NO DIFF MCH 28.5 pg 27.0-3 3.0 normal Not Available [address] [place], [address] 06/12/2024 06:24:26 06/12/20 24 06/12/2024 COMPL ETE BLOOD COUNT NO DIFF MCHC 31.2 % 32.0-3 6.0 low Not Available [address] [place], [address] 06/12/2024 06:24:26 06/12/20 24 06/12/2024 COMPL ETE BLOOD COUNT NO DIFF RDW 15.8 % 11.8-1 4.1 high Not Available [address] [place], [address] 06/12/2024 06:24:26 06/12/20 24 06/12/2024 COMPL ETE BLOOD COUNT NO DIFF platelet count 362 10_3/ uL 130-40 0 normal Not Available [address] [place], [address] 06/12/2024 06:24:26 06/12/20 24 06/12/2024 COMPL ETE BLOOD COUNT NO DIFF MPV 10.3 fL 8.0-11 .0 normal Not Available [address] [place], [address] 06/12/2024 06:24:26 06/12/20 24 06/12/2024 BASIC METAB OLIC PANEL calcium 9.3 mg/dL 8.5-10 .1 normal Not Available [address] [place], [address] 06/12/2024 06:42:26 06/12/20 24 06/12/2024 BASIC METAB OLIC PANEL glucose 113 mg/dL 74-106 high Not Available Jaymie harris [address] [place], [address] 06/12/2024 06:42:26 06/12/20 24 06/12/2024 BASIC METAB OLIC PANEL BUN 108 mg/dL 7-18 panic high Criti anurag value repor sebastián to and readb ack from SANDRA DE LOS SANTOS RN [place] at 0638 06/12 by LAB.C AMS Resul t verif ied by repea t otoniel sis Not Available [address] [place], [address] 06/12/2024 06:42:26 06/12/20 24 06/12/2024 BASIC METAB OLIC PANEL creatinine 3.3 mg/dL 0.70-1 .30 high Not Available [address] [place], [address] 06/12/2024 06:42:26 06/12/20 24 06/12/2024 BASIC METAB OLIC PANEL estimated GFR 19.32 mL/min [...] young er-ag ed adult s. Not Available [address] [place], [address] 06/12/2024 06:42:26 06/12/20 24 06/12/2024 BASIC METAB OLIC PANEL sodium 138 mmol/ L 136-14 5 normal Not Available [address] [place], [address] 06/12/2024 06:42:26 06/12/20 24 06/12/2024 BASIC METAB OLIC PANEL potassium 3.3 mmol/ L 3.5-5. 1 low Not Available [address] [place], [address] 06/12/2024 06:42:26 06/12/20 24 06/12/2024 BASIC METAB OLIC PANEL chloride 97 mmol/ L 98-107 low Not Available [address] [place], [address] 06/12/2024 06:42:26 06/12/20 24 06/12/2024 BASIC METAB OLIC PANEL CO2 33.0 mmol/ L 21.0-3 2.0 high Not Available [address] [place], [address] 06/12/2024 06:42:26 06/12/20 24 06/12/2024 BASIC METAB OLIC PANEL anion gap 8.0 mmol/ L 3-11 normal Not Available [address] [place], [address] 06/12/2024 06:42:26 06/13/20 24 06/13/2024 HEMOG LOBIN /LINDA TOCRI T HGB 8.4 g/dL 13.5-1 7.5 low Not Available [address] [place], [address] 06/13/2024 06:53:59 06/13/20 24 06/13/2024 HEMOG LOBIN /LINDA TOCRI T HCT 26.5 % 40.0-5 0.0 low Not Available [address] [place], [address] 06/13/2024 06:53:59 06/13/20 24 06/13/2024 BASIC METAB OLIC PANEL calcium 9.0 mg/dL 8.5-10 .1 normal Not Available [address] [place], [address] 06/13/2024 07:17:01 06/13/20 24 06/13/2024 BASIC METAB OLIC PANEL glucose 123 mg/dL 74-106 high Not Available Jaymie harris [address] [place], [address] 06/13/2024 07:17:01 06/13/20 24 06/13/2024 BASIC METAB OLIC PANEL BUN 109 mg/dL 7-18 panic high Criti anurag value repor sebastián to and ashu gonzalezk from [facility],R N at 0713 06/13 by LAB.G ERJ Not Available [address] [place], [address] 06/13/2024 07:17:01 06/13/2006/13/2024 BASIC METAB OLIC PANEL creatinine 3.1 mg/dL 0.70-1 .30 high Not Available [address] [place], [address] 06/13/2024 07:17:01 06/13/20 24 06/13/2024 BASIC METAB OLIC PANEL estimated GFR 20.83 mL/min /1.73m 2 The eGFR is calcu [...] young er-ag ed adult s. Not Available [address] [place], [address] 06/13/2024 07:17:01 06/13/2006/13/2024 BASIC METAB OLIC PANEL sodium 139 mmol/ L 136-14 5 normal Not Available [address] [place], [address] 06/13/2024 07:17:01 06/13/20 24 06/13/2024 BASIC METAB OLIC PANEL potassium 3.5 mmol/ L 3.5-5. 1 normal Not Available [address] [place], [address] 06/13/2024 07:17:01 06/13/20 24 06/13/2024 BASIC METAB OLIC PANEL chloride 97 mmol/ L 98-107 low Not Available [address] [place], [address] 06/13/2024 07:17:01 06/13/20 24 06/13/2024 BASIC METAB OLIC PANEL CO2 34.3 mmol/ L 21.0-3 2.0 high Not Available [address] [place], [address] 06/13/2024 07:17:01 06/13/20 24 06/13/2024 BASIC METAB OLIC PANEL anion gap 7.7 mmol/ L 3-11 normal Not Available [address] [place], [address] 06/13/2024 07:17:01 06/13/20 24 06/13/2024 MAGNE SIUM magnesium 1.8 mg/dL 1.8-2. 4 normal Not Available [address] [place], [address] 06/13/2024 07:17:01 06/14/20 24 06/14/2024 COMPL ETE BLOOD COUNT W/DIF F WBC 5.91 10_3/ uL 4.4-10 .8 normal Not Available [address] [place], [address] 06/14/2024 07:57:14 06/14/20 24 06/14/2024 COMPL ETE BLOOD COUNT W/DIF F RBC 3.14 10_6/ uL 4.36-5 .78 low Not Available [address] [place], [address] 06/14/2024 07:57:14 06/14/20 24 06/14/2024 COMPL ETE BLOOD COUNT W/DIF F HGB 9.0 g/dL 13.5-1 7.5 low Not Available [address] [place], [address] 06/14/2024 07:57:14 06/14/20 24 06/14/2024 COMPL ETE BLOOD COUNT W/DIF F HCT 28.3 % 40.0-5 0.0 low Not Available [address] [place], [address] 06/14/2024 07:57:14 06/14/20 24 06/14/2024 COMPL ETE BLOOD COUNT W/DIF F MCV 90 fL 80-95 normal Not Available Jaymie harris [address] [place], [address] 06/14/2024 07:57:14 06/14/20 24 06/14/2024 COMPL ETE BLOOD COUNT W/DIF F MCH 28.7 pg 27.0-3 3.0 normal Not Available [address] [place] [place], [address] 06/14/2024 07:57:14 06/14/20 24 06/14/2024 COMPL ETE BLOOD COUNT W/DIF F MCHC 31.8 % 32.0-3 6.0 low Not Available [address] [place], [address] 06/14/2024 07:57:14 06/14/20 24 06/14/2024 COMPL ETE BLOOD COUNT W/DIF F RDW 15.8 % 11.8-1 4.1 high Not Available [address] [place], [address] 06/14/2024 07:57:14 06/14/20 24 06/14/2024 COMPL ETE BLOOD COUNT W/DIF F platelet count 369 10_3/ uL 130-40 0 normal Not Available [address] [place], [address] 06/14/2024 07:57:14 06/14/20 24 06/14/2024 COMPL ETE BLOOD COUNT W/DIF F MPV 10.5 fL 8.0-11 .0 normal Not Available [address] [place], [address] 06/14/2024 07:57:14 06/14/20 24 06/14/2024 COMPL ETE BLOOD COUNT W/DIF F neutrophils % 88.2 % Not Available [address], [address] 06/14/2024 07:57:14 06/14/20 24 06/14/2024 COMPL ETE BLOOD COUNT W/DIF F lymphocytes % 10.2 % Not Available [address] [place], [address] 06/14/2024 07:57:14 06/14/20 24 06/14/2024 COMPL ETE BLOOD COUNT W/DIF F monocytes % 0.7 % Not Available [address] [place], [address] 06/14/2024 07:57:14 06/14/20 24 06/14/2024 COMPL ETE BLOOD COUNT W/DIF F eosinophils % 0.0 % Not Available [address] [place], [address] 06/14/2024 07:57:14 06/14/20 24 06/14/2024 COMPL ETE BLOOD COUNT W/DIF F basophils % 0.2 % Not Available [address] [place], [address] 06/14/2024 07:57:14 06/14/20 24 06/14/2024 COMPL ETE BLOOD COUNT W/DIF F immature grans % 0.7 % Not Available [address] [place], [address] 06/14/2024 07:57:14 06/14/20 24 06/14/2024 COMPL ETE BLOOD COUNT W/DIF F nucleated RBC 0.0 % 0.0-0. 3 normal Not Available [address] [place], [address] 06/14/2024 07:57:14 06/14/20 24 06/14/2024 COMPL ETE BLOOD COUNT W/DIF F absolute neutrophil count 5.22 10_3/ uL 1.2-6. 7 normal Not Available [address] [place], [address] 06/14/2024 07:57:14 06/14/20 24 06/14/2024 COMPL ETE BLOOD COUNT W/DIF F absolute lymphocyte count 0.60 10_3/ uL 1.2-3. 4 low Not Available [address] [place], [address] 06/14/2024 07:57:14 06/14/20 24 06/14/2024 COMPL ETE BLOOD COUNT W/DIF F absolute monocyte count 0.04 10_3/ uL 0.1-0. 8 low Not Available [address] [place], [address] 06/14/2024 07:57:14 06/14/20 24 06/14/2024 COMPL ETE BLOOD COUNT W/DIF F absolute eosinophil count 0.00 10_3/ uL 0.0-0. 7 normal Not Available [address] [place], [address] 06/14/2024 07:57:14 06/14/20 24 06/14/2024 COMPL ETE BLOOD COUNT W/DIF F absolute basophil count 0.01 10_3/ uL 0.0-0. 2 normal Not Available [address] [place], [address] 06/14/2024 07:57:14 06/14/2006/14/2024 BASIC METAB OLIC PANEL calcium 9.6 mg/dL 8.5-10 .1 normal Not Available [address] [place], [address] 06/14/2024 08:04:14 06/14/20 24 06/14/2024 BASIC METAB OLIC PANEL glucose 239 mg/dL 74-106 high Not Available Jaymie harris [address] [place], [address] 06/14/2024 08:04:14 06/14/20 24 06/14/2024 BASIC METAB OLIC PANEL BUN 119 mg/dL 7-18 panic high Criti anurag value repor sebastián to and readb ack from GENARO ALMAGUER RN [place] at 0759 06/14 by LAB.C AMS Resul t verif ied by repea t otoniel sis Not Available [address] [place], [address] 06/14/2024 08:04:14 06/14/20 24 06/14/2024 BASIC METAB OLIC PANEL creatinine 3.2 mg/dL 0.70-1 .30 high Not Available [address] [place], [address] 06/14/2024 08:04:14 06/14/20 24 06/14/2024 BASIC METAB OLIC PANEL estimated GFR 20.05 mL/min /1.73m 2 The eGFR is calcu [...] young er-ag ed adult s. Not Available [address] [place], [address] 06/14/2024 08:04:14 06/14/20 24 06/14/2024 BASIC METAB OLIC PANEL sodium 138 mmol/ L 136-14 5 normal Not Available [address] [place], [address] 06/14/2024 08:04:14 06/14/20 24 06/14/2024 BASIC METAB OLIC PANEL potassium 4.1 mmol/ L 3.5-5. 1 normal Not Available [address] [place], [address] 06/14/2024 08:04:14 06/14/20 24 06/14/2024 BASIC METAB OLIC PANEL chloride 97 mmol/ L 98-107 low Not Available [address] [place], [address] 06/14/2024 08:04:14 06/14/20 24 06/14/2024 BASIC METAB OLIC PANEL CO2 32.6 mmol/ L 21.0-3 2.0 high Not Available [address] [place], [address] 06/14/2024 08:04:14 08/31/06/14/2024 BASIC METAB OLIC PANEL anion gap 8.4 mmol/ L 3-11 normal Not Available [address] [place], [address] 06/14/2024 08:04:14 06/14/20 24 06/14/2024 LAB ADD ON TEST lab add on test DONE Not Available Jory morales [address] [place], [address] 06/14/2024 08:55:20 06/14/20 24 06/14/2024 C-LIZZ CTIVE PROTE IN C-reactive protein 3.53 mg/dL <or=0. 5 high Not Available [address] [place], [address] 06/14/2024 09:06:21 05/09/20 24 2024 x-ray imagi ng danielle santiago Name: Jossy Leyva Unit #: [id number] Loc: ER Orderi ng Provid er: Yelena Henley Accoun t #: [id number] Status : PRE ER Primar [...] the addres s above. Thank- you. crystal [facility] [address], [place], [address] 05/12/2024 08:01:30 05/09/20 24 2024 vrad repor t Patien t Name: Jossy Leyva Unit #: [id number] Loc: ER Orderi ng Provid er: Accoun t #: [id number] Status : REG ER Primar y [...] zation : [facility] [...] zation : [facility] use at least one of [...] ticate d by: Andrew downs MD. Orderi ng:P.Milind Castillo MD Access ion#=[id number] Ordere d By: CC: ------ ------ [...] error, please notify us immedi ately at [phone] and return the origin al report to us at the addres s above. Thank- you. crystal [facility] [address] [place], [address] 05/12/2024 08:01:30 05/09/20 24 2024 vrad repor t Patien t Name: Jossy Leyva Unit #: [id number] Loc: ER Orderi ng Provid er: Accoun t #: [id number] Status : REG ER Primar y [...] MD. Orderi ng:Pamela Castillo MD Access ion#=[id number] Ordere d By: CC: ------ ------ [...] error, please notify us immedi ately at [phone] and return the origin al report to us at the addres s above. Thank- you. crystal [facility] [address] [facility] [facility], [place], [address] 05/12/2024 08:01:30 05/10/20 24 05/10/2024 CT imagi ng danielle t Kisha t Name: Jossy Leyva Unit #: [id number] Loc: ER Orderi ng Provid er: Yelena Henley Accoun t #: [id number] Status : DEP ER Primar y Care Provid er: Rishi luceroChanda Date of Exam: Sex: M : 1954 [...] tion); or iterat charles recons tructi on 033: Total DLP = 0.00 mGy-cm Ordere d By: Timothy rs,Yelena MIMS CC: ------ ------ ------ ------ ------ [...] the addres s above. Thank- you. crystal [facility] [address] [place], [address] 05/12/2024 08:01:31 05/11/20 24 05/11/2024 CT imagi ng repor t Patijose t Name: Jossy Leyva Unit #: [id number] Loc: ER Orderi ng Provid er: Timothy blake,Yelena MIMS Accbud t #: [id number] Status : DEP ER Primar y [facility] er: Rishi lucero,Chanda bimal Date of Exam: Sex: M : [...] No ascite s, collec tion or mesent dena inflam matory respon se. No free air. [...] REPOSI TORY: [facility] submit sebastián to the [facility] Radiol ogy Data Regist ry (NRDR) Dose Index Regist ry (DIR) with the [place] [employer] [place] of Radiol ogy (ACR). RADIAT ION OPTIMI ZATION : All CT scans at this [facility] use at least one of these dose [...] error, please notify us immedi ately at [phone] and return the origin al report to us at the addres s above. Thank- you. crystal [facility] [address], [place], [address] 05/12/2024 08:01:31 06/03/20 24 06/03/2024 vrad repor t Patien t Name: Jossy Leyva Unit #: [id number] Loc: ER Orderi ng Provid er: Marcia santiago #: [id number] Status : REG ER Primar y [...] COMPAR PARTH: CT CHEST/ ABD/PE L WO 7:36 PM FINDIN GS: Tubes, cathet ers and device s: There is a right internal communications specialist al jugula r centra l venous cathet er presen t within tip of the cathet er at the [facility] on. Lungs: There is pulmon sukhdeep [...] exclud ed. 2. There is a right internal communications specialist al jugula r centra l venous cathet er presen t within tip of the cathet er at the [facility] juncti on. 3. There is a probab le small left pleura l effusi on. Dictat ed and Authen ticate d by: Teofilo Torres MD. Yemi ng:Bessie Ch MD Access ion#=[id number] Clemente lindo By: CC: ------ ------ ------ ------ ------ [...] the addres s above. Thank- you. crystal [facility] [address], [place], [address] 06/04/2024 07:27:19 06/03/2006/03/2024 vrad repor t Kisha t Name: Jossy Leyva Unit #: [id number] Loc: ER Orderi ng Provid er: Accoun t #: [id number] Status : REG ER Primar y [...] MD. Orderi ng:Bessie Ch MD Access ion#=[id number] Clemente d By: CC: ------ ------ ------ ------ ------ ------ ------ ------ ------ ------ ------ ------ ---- Dictat ed By: Report s vrad 2058 Transc ribed By: Jeanine Merge 2058 This is privil eged, confid [...] the addres s above. Thank- you. crystal [facility] [address], [place], [address] 06/04/2024 07:27:19 06/04/2006/04/2024 x-ray imagi ng repor t Patijose t Name: Jossy Leyva Unit #: [id number] Loc: ER Orderi ng Provid er: Jing Srivastava t #: [id number] Status : DEP ER Primar [...] SOFT TISSUE S: Unrema rkable . Right internal communications specialist al jugula r centra l venous cathet [...] the addres s above. Thank- you. crystal [facility] [address], [place], [address] 06/04/2024 09:25:40 06/04/20 24 06/04/2024 CT imagi ng danielle santiago Name: Jossy Leyva Unit #: [id number] Loc: ER Orderi ng Provid er: Jing Srivastava Accoun t #: [id number] Status : DEP ER Primar [...] in size and morpho logy for the kisha santiago's age. Hemorr graham: None. Cerebr al parenc [...] facili ty are submit sebastián to the [facility] al Radiol ogy Data Regist ry (NRDR) [...] tion); or iterat charles recons tructi on. 029: Total DLP = 0.00 mGy-cm Ordere d By: Jing Srivastava CC: ------ ------ ------ ------ ------ ------ ------ ------ ------ ------ ------ ------ ---- Dictat ed By: Sarthak Bhatia 848 Transc ribed By: Betzy Cordova 848 [...] the addres s above. Thank- you. crystal [facility] [address] [place], [address] 06/04/2024 09:25:40 06/06/20 24 06/06/2024 CT imagi ng repor t Patien t Name: Jossy Leyva Unit #: [id number] Loc: ER Orderi ng Provid er: Ar Osorio M.D. Accoun t #: [id number] Status : REG ER Primar y [...] error, please notify us immedi camily at [phone] and return the origin al report to us at the addres s above. Thank- you. crystal [facility] [address], [place], [address] 06/09/2024 07:27:25 06/06/2006/06/2024 x-ray imagi ng repor t Kisha t Name: Jossy Leyva Unit #: [id number] Loc: ER Orderi ng Provid er: Ar Osorio M.D. Accoun t #: [id number] Status : REG ER Primar y Care Provid er: Rishi on,[facility] Date of Exam: Sex: M Admiss ion [...] for the patien t's age. OTHER FINDIN GS:Chanda juarez's right IJ cathet er is in stable [...] the addres s above. Thank- you. crystal [facility] [address], [place], [address] 06/09/2024 07:27:26 06/13/20 24 06/13/2024 x-ray imagi ng repor t Patien t Name: Jossy Leyva Unit #: [id number] Loc: MS Orderi ng Provid er: Juan José Padilla t #: [id number] Status : ADM IN Primar y Care Provid er: Chanda Walker Date of Exam: Sex: M Admiss ion Date: : 1954 Age: 69 Exam(s ) XR PORTAB LE CHEST AP EXAM: XR PORTAB LE CHEST AP CLINIC AL HISTOR Y: increa sed hypoxi a/SOB TECHNI QUE: 2D digita l imagin g was perfor med. COMPAR PARTH: CT CT ABDOME N PELVIS WO from [...] Soft tissue s: Unrema rkable . IMPRES LEDA: Limite d exam. No acute findin gs. [...] the addres s above. Thank- you. crystal [place] [id number], [place], [address] 06/17/2024 09:08:18 Result Notes None recorded. Problems Name Problem SNOMED Code Status Onset Date Resolution Date Notes Provider Name and Address Organization Details Recorded Time Chronic obstruct charles pulmonar y disease 87318199 Active 201912/15/19 22 - Comments only - Lynette Fly GTZ - lungs clear on exam. nonlabor ed. He stopped smoking greater than 10 years ago. Problem Code: J44.9; Problem Code Type: ICD-10; Not Available [facility] 3 05:06:14 Atrial fibrilla tion 11833914 Active 201911/27/19 23 - Comments only - Lynette Bill RPA - Continue s to be rate controll ed. Continue s on Xarelto. We will check a CBC. Problem Code: I48.91; Problem Code Type: ICD-10; Not Available [facility] 3 05:06:14 Essentia l hyperten leda 25355798 Active 201911/27/19 23 - Comments only - Lynette Bill RPA - Well controll ed on current medicati on manageme nt. Problem Code: I10; Problem Code Type: ICD-10; Not Available [facility] 3 05:06:14 Type 2 diabetes mellitus without complica tion 930396775 Active 201903/15/20 22 - Comments only - [...] E11.9; Problem Code Type: ICD-10; Not Available [facility] 3 05:06:14 Heart failure 21927251 Active 2019 with preserve d ventricu lar function on 2023 echo. Problem Code: I50.9; Problem Code Type: ICD-10; [address], [place], [address] , [facility]. 4 17:18:09 Peripher al vascular disease 901233667 Active 2019 Problem Code: I73.9; Problem Code Type: ICD-10; Not Available [facility] 3 05:06:14 Screenin g for malignan t neoplasm of prostate Active 201907/26/20 20 - Comments only - Lynette Bill RPA - We will check a PSA Problem Code: Z12.5; Problem Code Type: ICD-10; Not Available [facility] 3 05:06:14 Dystroph ia unguium 67175945 Active 201909/06/20 20 - Comments only - Lynette Bill RPA - Referral has been made to podiatry . He has not heard on this referral yet Problem Code: L60.3; Problem Code Type: ICD-10; Not Available [facility] 3 05:06:15 Pain in thoracic spine 629868385 Active 201908/19/20 20 - Comments only - Lynette Bill [facility] - herniate d disk 1997. 2016 MRI with L5-S1 spinal stenosis - subseque nt steroid injectio n and ablation . Problem Code: M54.9; Problem Code Type: ICD-10; Not Available [facility] 3 05:06:15 Edema 942890963 Active 201912/15/19 22 - Comments only - Lynette Bill RPA - improved from a year ago. He restrict s sodium. Complian t with his cardiac meds. No evidence of cellulit is which has been a signific ant issue in past. Problem Code: R60.9; Problem Code Type: ICD-10; Not Available [facility] 3 05:06:15 Malaise 341131433 Active 202101/12/20 22 - Improved - Shaila [...] R53.81; Problem Code Type: ICD-10; Not Available [facility] 3 05:06:15 Tinnitus 34583857 Active 202101/12/20 22 - Comments only - [...] H93.19; Problem Code Type: ICD-10; Not Available [facility] 3 05:06:15 Carpal tunnel syndrome of right wrist 37990307705 9108 Active 202212/22/19 23 - Comments only - Lynette Bill RPA - confirmjaren lindo on emg's Problem Code: G56.01; Problem Code Type: ICD-10; Not Available [facility] 3 05:06:15 Cellulit is 919961145 Completed 201901/11/2022 Problem Code: L03.90; Problem Code Type: ICD-10; Not Available [facility] 3 05:06:37 Renal insuffic iency 915037685 Active [address], [facility] [address] , [facility] 4 11:54:52 Acute duodenal ulcer 463784010 Active 2023 Diagnose d at [facility] 04/[address], [place], [address] , [facility] 4 17:13:34 Anemia 088993523 Active 2023 acute likely secondar y to acute blood loss from duodenal ulcer, renal failure, and septic shock 04/[address], [place], [address] , [facility] 4 17:16:16 Septic shock 80635599 Active 2023 from leg injury [facility] summer [address], [place], [address] , [facility] 4 17:17:21 Problem Notes None recorded. Procedures Surgical History None recorded. Imaging Results Imaging Date Name Status LastModified by [facility] Details LastModified Time 2024 x-ray imaging report completed [id number] [place] [address] [place], [address] 05/12/2024 08:01:30 2024 vrad report completed [id number] [place] [address] [place], [address] 05/12/2024 08:01:30 2024 vrad report completed [email or web address] [place] [address] [place], [address] 05/12/2024 08:01:30 05/10/2024 CT imaging report completed [id number] [place] [address] [place], [address] 05/12/2024 08:01:31 05/11/2024 CT imaging report completed [id number] [place] [address] [place], [address] 05/12/2024 08:01:31 06/03/2024 vrad report completed [email or web address] [place] [address] [place], [address] 06/04/2024 07:27:19 06/03/2024 vrad report completed [id number] [place] [address] [place], [address] 06/04/2024 07:27:19 06/04/2024 x-ray imaging report completed [id number] [place] [address] [place], [address] 06/04/2024 09:25:40 06/04/2024 CT imaging report completed [id number] [place] [address] [place], [address] 06/04/2024 09:25:40 06/06/2024 CT imaging report completed [email or web address] [place] [address] [place], [address] 06/09/2024 07:27:25 06/06/2024 x-ray imaging report completed [email or web address] [place] [address] [place], [address] 06/09/2024 07:27:26 06/13/2024 x-ray imaging report completed [email or web address] [place] [address] [place], [address] 06/17/2024 09:08:18 Procedure Notes None recorded. Medical Equipment None [...] Dose reduced by half while admitted to [facility] Not Available Not Available Not Available zinc [...] oral route as directed . 2023 active magnharmanu m oxide 400 MG tablet 400 mg [...] pneumococcal, unspecified formulation 07/17/2020 completed Not Available [facility] 08/24/2023 05:17:59 Tdap 11/27/2022 completed Not Available [facility] 05:17:59 Influenza, high-dose, quadrivalent, PF 11/27/2022 completed Not Available [facility] 08/24/2023 05:18:00 COVID-19, mRNA, LNP-S, PF, 100 mcg/0.5mL dose or 50 mcg/0.25mL dose 12/10/2020 completed Not Available [facility] 08/24/2023 05:18:00 COVID-19, mRNA, LNP-S, PF, 100 mcg/0.5mL dose or 50 mcg/0.25mL dose 01/07/2021 completed Not Available [facility] 08/24/2023 05:18:00 COVID-19, mRNA, LNP-S, PF, 100 mcg/0.5mL dose or 50 mcg/0.25mL dose 03/15/2022 completed Not Available [facility] 08/24/2023 05:18:00 SARS-COV-2 (COVID-19) vaccine, UNSPECIFIED 09/17/2021 completed Not Available [facility] 08/24/2023 05:18:00 COVID-19, mRNA, LNP-S, bivalent, PF, 30 mcg/0.3 mL dose 11/27/2022 completed Not Available [facility] 08/24/20 05:18:00 pneumococcal polysaccharide PPV23 03/15/2022 completed Not Available [facility] 2022 05:18:00 influenza, unspecified formulation 07/17/2020 completed Not Available [facility] 08/24/2023 05:18:00 Past Encounters Encounter ID Performer Location Encounter Start Date Encounter Closed Date Diagnosis/Indication Diagnosis SNOMED-CT Code Diagnosis ICD10 Code [id number] LYNETTE BILL PA-C [facility] [address] [facility] [place] [address] 05/27/2024 16:09:14 05/31/2024 04:05:12 [id number] LYNETTE BILL PA-C [facility] [address] [place] [address] 05/30/2024 10:56:10 05/30/2024 12:20:08 Renal insufficiency 691290905 N28.9 Type 2 bridgette betes mellitus without complication 029566747 E11.9 Health Concerns Section Related Observation LastModified by Organization Detai ls LastModified Time None Recorded Concern Status LastModified by Organization Details LastModified Time None Recorded Advance Directives Directive None Recorded Payers Encounter Date Sequence Insurance Name Policy Number Policy White Covered Member ID White Member ID Guarantor Name 05/27/2024 1 *SELF PAY* [place] lencho Shanks 05/30/2024 1 *SELF PAY* Ted Hernandez Notes [...] chair on his own at this point. LYNETTE BILL PA-C [address], [place], [address], [facility]. 05/30/2024 11:55:32
--- OUTSIDE RECORDS SUMMARY | 2024-06-19 16:32 | XMS_ITS | Encounter Summary ---
Author Organization [facility] Address [address] [place] [address] Care Team Providers Care Legal Coordinator Name Role Phone Cruzito Hager MD Primary Care Provider Lisa chamberlain Encounter Details Date Type Department Care Team (Late st Contact Info) Description 06/04/2024 Lab Requisition [facility] Pathology & Laboratory Medicine - [facility] [address] [place] [address] Outr Resulting Lab, Provider Social History Tobacco [...] 4th Generation Negative Negative 06/04/2024 19:41 EDT [facility] Comment:If acute HIV-1 infec tion is suspected in a high risk patient, submit plasma specimen for HIV-1 RNA quantitation test. Blood VENOUS BLOOD / Unknown 06/03/2024 15:55 EDT 06/04/2024 17:25 EDT Narrative [facility] - 06/04/2024 19:41 EDT Fourth Generation assay performed on the [employer] XPT. Provider Outr Resulting Lab IMMUNOLOGY A ND SEROLOGY ORDERABLES [facility] [address] [phone] documented in this encounter Visit Diagnoses Not on filedocumented in this encounter Care Teams Legal Coordinator Relationship Specialty Start Date End Date Cruzito Hager MD PCP - General 06/14/11 documented as of this encounter
--- OUTSIDE RECORDS SUMMARY | 2024-06-19 16:32 | XMS_ITS | Encounter Summary ---
Author Organization [facility] Address [address] [place] [address] Care Team Providers Care Retail Performance Coach Name Role Phone Cruzito Hager MD Primary Care Provider U navailable Reason for Visit * Reason Onset Date Comments Discuss Possible Transfer 06/06/2024 Encounter Details Date Type Department Care Team (Late st Contact Info) Description 06/06/2024 Telephone [facility] [address] [place] [address] Kaya Swanson MD [address] [phone] Discuss Possible Transfer (/) Social History Tobacco Use Types Packs/Day Years Used Date Smoking Tobacco: Never Assessed Sex and Gender Information Value Date Recorded Sex Assigned at Not on file Gender Identity Not on file Sexual Orientation Not on file documented as of this encounter Miscellaneous Notes * Telephone Encounter - Kaya Swanson MD - 06/06/20242009 EDT RTC [facility] ED [facility] [place] 69M CHF afib on rivaroxaban. Recent admission to [facility] for septic shock from lower extremity osteomyelitis with FISH not requiring HD and melena/UGIB requiring transfusion with endoscopy demonstrating non-bleeding ulcer with adherent clot which was clipped and injected with epinphenrine. Plan was to r esume anticoagulation on 8/14. Still at rehab and seems his last dose of anticoagulation was 06/03 although not entirely clear. Two visits to ED this week with increased dyspnea and concern for LGIB. Reportedly Hgb 12 -> 7.6 (but in [facility] records his hemoglobin stabilized to 7.8 after UGIB) and tachypneic with volume overload earlier in the week but he elected to discharge. On PO furosemide 40 mg outpatient. Returned tonight larger volume hematochezia with hemoglobin dropped to 6.3 (did not receive transfusion in ED earlier in week). Concern for diverticular or hemorrhoidal bleed. Uncertain if ever had colonoscopy. No GI there and general surgery does colonoscopy but not in acute setting. Called [facility] but they did not feel he warranted transfer to their facility. Dr. Kumar [facility] approved discussion with [facility] for potential transfer. HR 84 paced 95% RA 20-30 RR 140/62 ROQUE cruzito blood and small internal hemorrhoid BNP 7400 BUN 72 Creatinine 4.2 (made urine in ED) stable value for past month IV furosemide 40 - > 200 ml UOP Godinez placed with poor functional tolerance Non contrast CT abdomen unrevealing Continue BID PPI. Encouraged IV furosemide 100-120 mg if concerned about respiratory status considering his current renal function which is stable from [facility] discharge. Accepted as non-emergent transfer to [facility]. In the meantime, if stabilizes he may qualify for outpatient colonoscopy and discharge from their facility. Also encouraged re-discussion with [facility] if clinical change as he has received his recent care including for GIB there. If acute decompensation can transfer ED to ED or to MICU if admitted inpatient at [facility] (currently full there so provider indicated he may board in ED). Kaya Swanson MD 06/06/2024 20:10 Hospitalist documented in this encounter Plan of Treatment Not on file documented as of this encounter Visit Diagnoses Not on filedocumented in this encounter Care Teams Retail Performance Coach Relationship Specialty Start Date End Date Cruzito Hager MD PCP - General 06/14/11 documented as of this encounter
--- OUTSIDE RECORDS SUMMARY | 2024-06-19 16:32 | XMS_ITS | Encounter Summary ---
Author Organization [facility] Address [address] [place] [address] Care Team Providers Care Non Clinical Advisor Name Role Phone Cruzito Hager MD Primary Care Provider Lisa chamberlain Encounter Details Date Type Department Care Team (Late st Contact Info) Description 07/29/2020 Lab Requisition [facility] Pathology & Laboratory Medicine - [address] [address] Outr Resulting Lab, Provider Social History Tobacco [...] 0.0 - 4.5 ng/mL 07/29/2020 17:49 EDT [facility] Blood VENOUS BLOOD / Unknown 07/28/2020 7:59 EDT 07/29/2020 16:13 EDT Narrative [facility] - 07/29/2020 17:49 EDT NOTE: Serum PSA concentration should not be interpreted as absolute evidence for the presence or absence of malignant disease. Assayed on Siemens ADVIA Centaur XPT using chemiluminescent technology.??Values obtained by using different assay methods cannot be used interchangeably. Provider Outr Resulting Lab CHEMISTRY & BLOOD GAS ORDERABLES [facility] [address] [place] [address] documented in this encounter Visit Diagnoses Not on filedocumented in this encounter Care Teams Non Clinical Advisor Relationship Specialty Start Date End Date Cruzito Hager MD PCP - General 06/14/11 documented as of this encounter
--- OUTSIDE RECORDS SUMMARY | 2024-06-19 16:32 | XMS_ITS | Encounter Summary ---
[place] [address] Care Team Providers Care Doormaker Name Role Phone None Primary Care Provider Unavailabl e Encounter Details Date Type Department Care Team (Late st Contact Info) Description 06/13/2024 Notes Only [place] [phone] Nicky Eller, RN Social History Tobacco Use Types Packs/Day Years Used Date Smoking Tobacco: Former Cigarettes 14 0.7 S tarted: 2023 Smokeless Tobacco: Never Alcohol [...] on file documented as of this encounter Progress Notes * Nicky Eller, RN - 06/13/2024 1:01 PM EDT Infectious Disease/OPAT Program PICC Removal External Location PICC line was removed on 06/10/24 PICC line was removed by [facility] documented in this encounter Plan of Treatment Not on file documented as of this encounter Visit Diagnoses Not on filedocumented in this encounter Care Teams Doormaker Relationship 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
--- OUTSIDE RECORDS SUMMARY | 2024-06-19 16:32 | XMS_ITS | Encounter Summary ---
Author Organization [facility] Address [address] [place] [address] Care Team Providers Care Subway Operator Name Role Phone Unknown, Provider Primary Care Provider [phone] Encounter Details Date Type Department Care Team (Late st Contact Info) Description 06/09/2011 Results Only [facility] Laboratory Services - [facility] ([facility] [place] [place] [address] [place], [place] [id number] Nicolas Chen MD [address] [place] [address] Social History Tobacco Use Types [...] ? KNIGHTS, GALE ? Accession #: ? [id number] ? : ? 1955 (Age: 56) ??M [...] MD PATHOLOGY ORDERABLES Performing Organization Address City/State/[facility] Co de Phone Number [facility] [address] [place] [address] documented in this encounter Visit Diagnoses Not on filedocumented in this encounter Care Teams Subway Operator Relationship Specialty Start Date End Date Unknown, Provider, PCP - General 06/10/11 06/13/11 documented as of this encounter
--- OUTSIDE RECORDS SUMMARY | 2024-06-19 16:32 | XMS_ITS | Encounter Summary ---
[place] [address] Care Team Providers Care Laborer Filter Plant Name Role Phone None Primary Care Provider Unavailabl e Encounter Details Date Type Department Care Team (Late st Contact Info) Description 05/26/2024 Telephone [place] [phone] Marina Mason RN Social History Tobacco Use [...] Antimicrobials: Rodriguez Hein MD Review/Pertinent information: 1409: handbook writer spoke with nursing staff at [facility] regarding IV ABX; patient is receiving Ceftriaxone 2 gIV daily; they were unaware of ordered labs. Faxed to [facility] on 05/26/24 at 1439 Fax confirmation on 05/26/24 at 1441 Documents faxed: OPAT order (see above) May f/u appointment schedule F/u: Weekly labs 06/03: ID BUILDING DISMANTLER CARL Melgar, RN, ACM-RN OPAT Program documented in this encounter Plan of Treatment Not on file documented as of this encounter Visit Diagnoses Not on filedocumented in this encounter Care Teams Laborer Filter Plant Relationship 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
--- OUTSIDE RECORDS SUMMARY | 2024-06-19 16:32 | XMS_ITS | Encounter Summary ---
Author Organization [facility] Address [address] [place] [address] Care Team Providers Care Sap Senior Developer Name Role Phone Cruzito Guerrero MD Primary Care Provider Lisa chamberlain Encounter Details Date Type Department Care Team (Late st Contact Info) Description 01/15/2015 Results Only [facility] [phone] Tony Oliverio L, DO [address] [place] [address] Social History Tobacco Use Types [...] ? CORTES JOSSY ? Accession #: ? [id number] ? : ? 1955 (Age: 59) ??M [...] Verma 01/16/2015 01:32 PM End of Report [facility] 01/15/2015 18:2 1 EDT 01/15/2015 18:21 EDT Oliverio King DO PATHOLOGY ORDERABLES [facility] [address] [place] [address] documented in this encounter Visit Diagnoses Not on filedocumented in this encounter Care Teams Sap Senior Developer Relationship Specialty Start Date End Date Cruzito Guerrero MD PCP - General 06/14/11 documented as of this encounter
--- OUTSIDE RECORDS SUMMARY | 2024-06-19 16:32 | XMS_ITS | Encounter Summary ---
Author Organization [facility] [address] Care Team Providers Care Farm Forestry And Garden Workers Name Role Phone None Primary Care Provider Unavailabl e Encounter Details Date Type Department Care Team (Late st Contact Info) Description 05/26/2024 Orders [place] [address] Maryann Dowell MD [facility] [place] [address] Osteomyelitis of second toe of right foot; Coagulase-negative staphylococcal infection Social History Tobacco Use Types Packs/Day Years Used Date Smoking Tobacco: Former Cigarettes 14 0.7 S tarted: 2023 Smokeless Tobacco: Never Alcohol Use Standard Drinks/Week Comments Yes 0 (1 standard drink = 0.6 oz pur e alcohol) 3-4 PER [facility] Inpatient Questions Answer Date Recorded [...] site documented in this encounter Care Teams Farm Forestry And Garden Workers Relationship 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
--- OUTSIDE RECORDS SUMMARY | 2024-06-19 16:32 | XMS_ITS | Encounter Summary ---
Author Organization [facility] Address [address] [place] [address] Care Team Providers Care Application Architect Name Role Phone Cruzito Hager MD Primary Care Provider U navailable Reason for Referral * (Routine/Next Available) - Receiving Office to Obtain Authorization Specialty Diagnoses / Procedures Referred By Contac t Referred To Contact Procedures CT OUTSIDE IMAGES ABDOMEN PELVIS Unknown, MD [employer] Referral ID Status Reason Start Date Expiration Date Visits Requested Visits Authorized [id number] Receiving Office to Obtain Authorization 06/06/2024 1 1 Reason for Visit * (Routine/Next Available) - Receiving Office to Obtain Authorization Specialty Diagnoses / Procedures Referred By Contac t Referred To Contact Procedures CT OUTSIDE IMAGES ABDOMEN PELVIS Unknown, MD [employer] Referral ID Status Reason Start Date Expiration Date Visits Requested Visits Authorized [id number] Receiving Office to Obtain Authorization 06/06/2024 1 1 Encounter Details Date Type Department Care Team (Latest Contact Info) Description 06/06/2024 20:16 EDT - 06/06/2024 23:59 EDT Hospital Encounter [facility] [place] Discharge Disposition: Home or Self Care Social History Tobacco Use Types Packs/Day Years Used Date Smoking Tobacco: Never Assessed Sex and Gender Information Value Date Recorded Sex Assigned at Not on file Gender Identity Not on file Sexual Orientation Not on file documented as of this encounter Discharge Disposition Disposition Code Departure Means Destination Home or Self Care documented in this encounter Plan of Treatment [...] on filedocumented in this encounter Care Teams Application Architect Relationship Specialty Start Date End Date Cruzito Hager MD PCP - General 06/14/11 documented as of this encounter
--- OUTSIDE RECORDS SUMMARY | 2024-06-19 16:32 | XMS_ITS | Encounter Summary ---
Author Organization [facility] Address [address] [place] [address] Care Team Providers Care Tie Layer Name Role Phone Cruzito Hager MD Primary Care Provider U navailable Reason for Referral * (Routine/Next Available) - Receiving Office to Obtain Authorization Specialty Diagnoses / Procedures Referred By Contac t Referred To Contact Procedures XR OUTSIDE IMAGES CHEST Unknown, MD [employer] Referral ID Status Reason Start Date Expiration Date Visits Requested Visits Authorized [id number] Receiving Office to Obtain Authorization 06/06/2024 1 1 Reason for Visit * (Routine/Next Available) - Receiving Office to Obtain Authorization Specialty Diagnoses / Procedures Referred By Contac t Referred To Contact Procedures XR OUTSIDE IMAGES CHEST Unknown, MD [employer] Referral ID Status Reason Start Date Expiration Date Visits Requested Visits Authorized [id number] Receiving Office to Obtain Authorization 06/06/2024 1 1 Encounter Details Date Type Department Care Team (Latest Contact Info) Description 06/06/2024 20:16 EDT - 06/06/2024 23:59 EDT Hospital Encounter [facility] [place] Discharge Disposition: Home [...] on filedocumented in this encounter Care Teams Tie Layer Relationship Specialty Start Date End Date Cruzito Hager MD PCP - General 06/14/11 documented as of this encounter
--- OUTSIDE RECORDS SUMMARY | 2024-06-19 16:32 | XMS_ITS | Encounter Summary ---
Author Organization [facility] Address [address] [place] [address] Care Team Providers Care Strip Presser Name Role Phone Cruzito Hager MD Primary Care Provider Lisa chamberlain Encounter Details Date Type Department Care Team (Late st Contact Info) Description 06/04/2024 Lab Requisition [facility] Pathology & Laboratory Medicine - [facility] [address] [place] [address] Outr Resulting Lab, Provider Social History Tobacco [...] Surface Ag Negative Negative 06/04/2024 18:55 EDT [facility] Blood VENOUS BLOOD / Unknown 06/03/2024 15:55 EDT 06/04/2024 17:25 EDT Provider Outr Resulting Lab CHEMISTRY & BLOOD GAS ORDERABLES Performing Organization Address City/[facility]/ZIP Co de Phone Number [facility] [address] [place], [place] [phone] * HEPATITIS C AB W REFLEX TO HCV RNA BY PCR (06/03/2024 15:55 EDT) Hep C Antibody Negative Negative 06/04/2024 19:27 EDT [facility] Blood VENOUS BLOOD / Unknown 06/03/2024 15:55 EDT 06/04/2024 17:25 EDT Provider Outr Resulting Lab CHEMISTRY & BLOOD GAS ORDERABLES Performing Organization Address City/[facility] [[email or web address]] Co de Phone Number [facility] [address] [place], [place] [phone] documented in this encounter Visit Diagnoses Not on filedocumented in this encounter Care Teams Strip Presser Relationship Specialty Start Date End Date Cruzito Hager MD PCP - General 06/14/11 documented as of this encounter
--- OUTSIDE RECORDS SUMMARY | 2024-06-19 16:32 | XMS_ITS | Encounter Summary ---
Author Organization [facility] Address [address] [place] [address] Care Team Providers Care Food Checkers And Cashiers Supervisor Name Role Phone Cruzito Hager MD Primary Care Provider Lisa chamberlain Encounter Details Date Type Department Care Team (Late st Contact Info) Description 12/15/2021 Lab Requisition [facility] Pathology & Laboratory Medicine - [address] [address] Outr Resulting Lab, Provider Social History Tobacco [...] 0.0 - 4.5 ng/mL 12/15/2021 18:46 EST [facility] Blood VENOUS BLOOD / Unknown 12/14/2021 11:30 EST 12/15/2021 17:18 EST Narrative [facility] - 12/15/2021 18:46 EST NOTE: Serum PSA concentration should not be interpreted as absolute evidence for the presence or absence of malignant disease. Assayed on Siemens ADVIA Centaur XPT using chemiluminescent technology.??Values obtained by using different assay methods cannot be used interchangeably. Provider Outr Resulting Lab CHEMISTRY & BLOOD GAS ORDERABLES [facility] [address] [place] [address] documented in this encounter Visit Diagnoses Not on filedocumented in this encounter Care Teams Food Checkers And Cashiers Supervisor Relationship Specialty Start Date End Date Cruzito Hager MD PCP - General 06/14/11 documented as of this encounter
--- OUTSIDE RECORDS SUMMARY | 2024-06-19 16:32 | XMS_ITS | Clinical Summary ---
Author Organization [facility] [place] [address] Care Team Providers Care Learning And Development Officer Name Role Phone None Primary Care [...] daily for 30 days. 30 capsule 05/24/2024 4 Active pantoprazole EC (Protonix) [address] tablet Take 1 tablet by mouth 2 times daily for 60 days. 60 tablet 1 05/23/2024 4 Active sevelamer carbonate (Renvela) 800 mg tablet Take 1 tablet by mouth 3 times daily (with meals) for 30 days. 90 tablet 05/23/2024 4 Active sodium bicarbonate 650 mg tablet Take 1 tablet by mouth 2 times daily for 30 days. 60 tablet 05/23/2024 4 Active Active Problems Problem Noted Date Diagnosed Date Septic shock 2024 Degenerative lumbar spinal stenosis 09/25/2017 Encounters Date Type Department Care Team Description 06/13/2024 Notes [place] [address] Nicky Eller RN 05/30/2024 Telephone [place] [address] Lu Mcfarland, NAYA 05/26/2024 Orders [place] [address] Maryann Dowell MD Osteomyelitis of second toe of right foot; Coagulase-negative staphylococcal infection 05/26/2024 Telephone [place] [address] Marina Mason RN 05/22/2024 4:33 PM EDT Anesthesia Event [place] [address] Soledad Doyle MD Pouliot, Ryan C, MD 05/22/2024 1:00 PM EDT - 05/22/2024 1:30 PM EDT Surgery [place] [address] Jonn Mena MD EGD, UPPER GI ENDOSCOPY (WRVU 2.09) 05/21/2024 Travel 05/14/2024 10:37 AM EDT Anesthesia Event Main Operating Room [place] [id number] Gertrudis Kimball MD Godbout, Jennifer M, MD 05/14/2024 10:00 AM EDT - 05/14/2024 11:24 AM EDT Surgery Main Operating Room [place] [id number] Elkin Garcia MD AMPUTATION, TRANSMETATARSAL TOE, ONE TOE (WRVU 6.64) 05/10/2024 2:12 AM EDT - 05/23/2024 4:14 PM EDT Hospital Encounter Surgical Unit Level 4 Wing D at [place] [phone] Arely Dickson MD Saunders, Richard K, MD Singh, Gurbakhshish, MD Swenson, Beverly Goodson MD Septic shock; Altered tissue perfusion; Osteomyelitis of second toe of right foot; Stage 4 chronic kidney disease Discharge Disposition: Rehab Center in a Facility 2024 9:25 PM EDT Ancillary Procedure Radiology Library at [place] [phone] Arely Dickson MD 2024 9:20 PM EDT Ancillary Procedure [place] [phone] Arely Dickson MD from Last 3 Months Social History Tobacco Use Types Packs/Day Years Used Date Smoking Tobacco: Former Cigarettes 14 0.7 S tarted: 2023 Smokeless Tobacco: Never Tobacco Cessation:Counseling Given: Not Answered Alcohol Use Standard Drinks/Week Comments Yes 0 (1 standard drink = 0.6 oz pur e alcohol) 3-4 PER [facility] Inpatient Questions Answer Date Recorded Does [...] 05/14/2024 9:50 AM EDT Plan of Treatment Health Maintenance Due Date [...] history exists Medical Devices Implanted Type Area Commander Internal Affairs Device Identifier Shelf Expiration Date Model / Serial / Lot Clip [id number] Endoscopic Ligation Resolution 360 Each [id number] - [id number] Implanted:Qty: 1 on 05/22/2024 by Jonn Mena MD at [facility] IMPLANTS Duodenum [employer] [...] EDT Upper Gi Endoscopy, W/Dir Submuc Inj (48308) 05/22/2024 4:39 PM EDT ? melena Upper Gi Endoscopy, Ctrl Bleed (31890) 05/22/2024 4:39 PM EDT ? melena Upper GI Endoscopy, Diagnostic (14159) 05/22/2024 4:39 PM EDT ? melena UPPER [...] 05/14/2024 11:32 AM EDT Amputation Metatarsal+Toe, Single (13606) 05/14/2024 10:37 AM EDT right second toe osteomyelitis AMPUTATION, TRANSMETATARSAL TOE, ONE TOE Routine 05/14/2024 9:19 AM EDT POCT GLUCOSE Routine 05/14/2024 7:58 AM EDT DIFFERENTIAL, AUTOMATED Routine 05/14/20 5:01 AM EDT HEMOGRAM Routine 05/14/2024 5:01 [...] of40 resultswithin the time period is included. [facility] Glucometer, POC 137 65 - 199 mg/dL 05/23/2024 12:32 PM EDT [facility] Comment:Supplemental ranges: <140 mg/dL before meals <180 mg/dL all other times of the day. Blood CAPILLARY BLOOD / Unknown 05/23/2024 12:32 PM EDT 05/23/2024 12:32 PM EDT Beverly Spears MD POINT OF CARE TEST ORDERABLES [facility] [place] [address] * (ABNORMAL) CBC (with Diff) (05/23/2024 9:46 AM EDT) Only the most recent of8 resultswithin the time period is included. White Blood Cell 12.66(H) 4.00 - 9.50 x10(3)/mc L 05/23/2024 10:52 AM EDT [facility] Red Blood Cell 2.56(L) 4.58 - 5.54 x10(6)/mc L 05/23/2024 10:52 AM EDT [facility] Hemoglobin 7.7(L) 13.7 - 16.5 g/dL 05/23/2024 10:52 AM EDT [facility] Hematocrit 24.3(L) 40.5 - 48.5 % 05/23/2024 10:52 AM EDT [facility] Mean Cell Volume 94.9(H) 82.9 - 93.1 fL 05/23/2024 10:52 AM EDT [facility] Mean Cell Hemoglobin 30.1 27.5 - 32.1 pg 05/23/2024 10:52 AM [facility] Mean Cell Hemoglobin Concentration 31.7(L) 32.0 - 35.7 g/dL 05/23/2024 10:52 AM EDT [facility] Platelet 370(H) 145 - 357 x10(3)/mc L 05/23/2024 10:52 AM EDT [facility] Mean Platelet Volume 11.6 7.6 - 12.9 fL 05/23/2024 10:52 AM EDT [facility] RDW Standard Deviation 57.1(H) 36.0 - 45.0 fL 05/23/2024 [facility] RDW coefficient of variation 16.9(H) 11.4 - 13.8 % 05/23/2024 10:52 AM EDT [facility] NRBC% auto 0.0 % 05/23/2024 10:52 AM [facility] NRBC Absolute 0.00 0.00 - 0.00 x10(3)/mc L 05/23/2024 10:52 AM [facility] Neutrophil % 81.6 % 05/23/2024 10:52 AM [facility] Neutrophil Absolute (ANC) - Automated 10.34(H) 1.70 - 6.10 x10(3)/mc L 05/23/2024 10:52 AM [facility] Lymph % 5.1 % 05/23/2024 10:52 AM [facility] Lymph Absolute 0.64(L) 0.90 - 3.20 x10(3)/mc L 05/23/2024 10:52 AM [facility] Monocyte % 10.7 % 05/23/2024 10:52 AM [facility] Monocyte Absolute 1.35(H) 0.30 - 0.90 x10(3)/mc L 05/23/2024 10:52 AM [facility] Eos % 1.7 % 05/23/2024 10:52 AM [facility] Eos Absolute 0.22 0.00 - 0.40 x10(3)/mc L 05/23/2024 10:52 AM [facility] Basophil % 0.3 % 05/23/2024 10:52 AM [facility] Baso Absolute 0.04 0.00 - 0.10 x10(3)/mc L 05/23/2024 10:52 AM [facility] Immature Gran % 0.6 % 10:52 AM [facility] Immature Gran Absolute 0.07(H) 0.00 - 0.04 x10(3)/mc L 05/23/2024 10:52 AM [facility] Blood VENOUS BLOOD SPECIMEN / Unknown IP Care Team Draw / Unknown 05/23/2024 9:46 AM EDT 05/23/2024 10:01 AM EDT Beverly Spears MD HEMATOLOGY ORDERABL ES [facility] [place] [address] * (ABNORMAL) Basic Metabolic Panel (05/23/2024 9:46 AM EDT) Only the most recent of17 resultswithin the time period is included. Glucose 142 65 - 199 mg/dL 05/23/2024 11:27 AM T [facility] Comment:Glucose Concentratio n >=200 mg/dL plus symptoms is consistent with Diabetes Mellitus. Blood Urea Nitrogen 83(H) 10 - 20 mg/dL 05/23/2024 11:27 AM [facility] Creatinine 2.64(H) 0.80 - 1.50 mg/dL 05/23/2024 11:27 AM T [facility] Sodium 140 135 - 145 mMol/L 05/23/2024 11:27 AM [facility] Potassium 5.2(H) 3.5 - 5.0 mMol/L 05/23/2024 11:27 AM [facility] Chloride 111(H) 98 - 107 mMol/L 05/23/2024 11:27 AM [facility] Carbon Dioxide 20(L) 22 - 31 mMol/L 05/23/2024 11:27 AM T [facility] Anion Gap 9 5 - 15 mMol/L 05/23/2024 11:27 AM [facility] Calcium 9.3 8.5 - 10.5 mg/dL 05/23/2024 11:27 AM [facility] Est Glomerular Filtration Rate - Male 25 mL/min/1. 73 m?? 05/23/2024 11:27 AM [facility] Comment: This patient's estimated GFR [...] Address City/[facility]/ZIP Co de Phone Number [facility] [place] [address] * Prepare RBC (05/23/2024 3:49 AM EDT) Status Information Transfused [facility] Product Identification RBC [facility] Unit Number [id number] [facility] Product Code [id number] [facility] Unit Blood Type OPOS [facility] Specimen Expiration Date [id number] [facility] [address] [facility] Issue Date / Time [id number] [facility] Blood 05/22/2024 12: 42 PM EDT Beverly Spears MD BLOOD BANK PRODUCT ORDERABLES [facility] [place] [place] [address] * (ABNORMAL) Scan, Peripheral Blood (05/23/2024 1:19 AM EDT) RBC Morphology Abnormal 05/23/2024 3:44 AM EDT [facility] Platelet Estimate Increased(A) Normal 05/23/2024 3:44 AM EDT [facility] Ovalocytes 1-5 /HPF 05/23/2024 3:44 AM EDT [facility] Sofía cells 1-5 /HPF 05/23/2024 3:44 AM EDT [facility] Blood VENOUS BLOOD SPECIMEN / Unknown IP Care Team Draw / Unknown 05/23/2024 1:19 AM EDT 05/23/2024 2:05 AM EDT Julius Cook MD HEMATOLOGY ORDERAB LES Performing Organization Address City/[facility]/ZIP Co de Phone Number [facility] [place] [address] * (ABNORMAL) Phosphorus (05/23/2024 1:19 AM EDT) Only the most recent of15 resultswithin the time period is included. Phosphorus 5.8(H) 2.5 - 4.5 mg/dL 05/23/2024 2:40 AM EDT [facility] Blood VENOUS BLOOD SPECIMEN / Unknown IP Care Team Draw / Unknown 05/23/2024 1:19 AM EDT 05/23/2024 2:05 AM EDT Julius Cook MD CHEMISTRY ORDERABL ES Performing Organization Address [facility] Co de Phone Number [facility] [place] [address] * Magnesium (05/23/2024 1:19 AM EDT) Only the most recent of14 resultswithin the time period is included. Magnesium 0.86 0.69 - 1.07 mMol/L 05/23/2024 2:40 AM EDT [facility] Blood VENOUS BLOOD SPECIMEN / Unknown IP Care Team Draw / Unknown 05/23/2024 1:19 AM EDT 05/23/2024 2:05 AM EDT Julius Cook MD CHEMISTRY ORDERABL ES Performing Organization Address [facility]/ZIP Co de Phone Number [facility] [place] [address] * Transfuse RBC (05/22/2024 2:45 PM EDT) Beverly Spears MD NURSING TREATMENT O RDERABLES - BLOOD ADMIN * UPPER GI ENDOSCOPY (05/22/2024 12:48 PM EDT) UPPER GI ENDOSCOPY [facility] Endoscopy ___ Procedure Date: 05/22/2024 12:48 PM ? Patient Name: Ave Kolb ? [facility]: [id number] ? Date of : 1955 ? Age: 69 ? Order #: [id number] ? Instrument Name: [id number]- [id number]- [id number] ? ___ Procedure: ? Upper GI endoscopy [...] Recheck Progress Complete 05/22/2024 1:01 PM EDT [facility] Blood VENOUS BLOOD SPECIMEN / Unknown IP Care Team Draw / Unknown 05/22/2024 11:18 AM EDT 05/22/2024 11:27 AM EDT Beverly Spears MD BLOOD BANK LAB GWENDOLYNE MURRAY [facility] [place] [place] [address] * (ABNORMAL) Hemoglobin and Hematocrit, blood (05/22/2024 11:18 AM EDT) Hemoglobin 6.9(L) 13.7 - 16.5 g/dL 05/22/2024 12:02 PM EDT [facility] Hematocrit 21.4(L) 40.5 - 48.5 % 05/22/2024 12:02 PM EDT [facility] Blood VENOUS BLOOD SPECIMEN / Unknown IP Care Team Draw / Unknown 05/22/2024 11:18 AM EDT 05/22/2024 11:36 AM EDT Beverly Spears MD HEMATOLOGY ORDERABL ES [facility] [place] [address] * Type and screen ([facility]/CGP/TARA) (05/22/2024 11:18 AM EDT) Only the most recent of2 resultswithin the time period is included. ABORH Type O POSITIVE 05/22/2024 12:31 PM EDT [facility] PATIENT HISTORY Found 05/22/2024 12:31 PM EDT [facility] Expires at 2359 on: 05-22-2024 05/22/2024 12:31 PM EDT [facility] ANTIBODY SCREEN AUTOMATED Negative 05/22/2024 12:31 PM EDT [facility] T&S only valid at [facility] 05/22/2024 12:31 PM EDT [facility] Blood VENOUS BLOOD SPECIMEN / Unknown IP Care Team Draw / Unknown 05/22/2024 11:18 AM EDT 05/22/2024 11:27 AM EDT Narrative [facility] - 05/22/2024 12:31 PM EDT This Type and Screen result is only valid at the [facility] Beverly Spears MD BLOOD BANK LAB ORDE RABLES [facility] [place] [place] [address] * (ABNORMAL) Hepatic Function Panel (05/22/2024 5:18 AM EDT) Only the most recent of2 resultswithin the time period is included. Albumin 2.6(L) 3.2 - 5.2 g/dL 05/22/2024 9:50 AM EDT [facility] Aspartate Aminotransferase 18 <=39 unit/L 05/22/2024 9:50 AM EDT [facility] Alanine Aminotransferase 42 0 - 55 unit/L 05/22/2024 9:50 AM EDT [facility] Alkaline Phosphatase 84 40 - 130 unit/L 05/22/2024 9:50 AM EDT [facility] Bilirubin, Total <0.2 <=1.3 mg/dL 05/22/2024 9:50 AM EDT [facility] Bilirubin, Direct <0.2 0.0 - 0.3 mg/dL 05/22/2024 9:50 AM EDT [facility] Protein, Total 6.0(L) 6.1 - 8.0 g/dL 05/22/2024 9:50 AM EDT [facility] Blood VENOUS BLOOD SPECIMEN / Unknown IP Care Team Draw / Unknown 05/22/2024 5:18 AM EDT 05/22/2024 5:45 AM EDT Beverly Spears MD CHEMISTRY ORDERABLE S [facility] [place] [address] * (ABNORMAL) Hemogram (05/21/2024 3:00 PM EDT) Only the most recent of10 resultswithin the time period is included. White Blood Cell 14.25(H) 4.00 - 9.50 x10(3)/mc L 05/21/2024 3:41 PM EDT [facility] Red Blood Cell 2.61(L) 4.58 - 5.54 x10(6)/mc L 05/21/2024 3:41 PM EDT [facility] Hemoglobin 7.8(L) 13.7 - 16.5 g/dL 05/21/2024 3:41 PM EDT [facility] Hematocrit 24.5(L) 40.5 - 48.5 % 05/21/2024 3:41 PM EDT [facility] Mean Cell Volume 93.9(H) 82.9 - 93.1 fL 05/21/2024 3:41 PM EDT [facility] Mean Cell Hemoglobin 29.9 27.5 - 32.1 pg 05/21/2024 3:41 PM EDT [facility] Mean Cell Hemoglobin Concentration 31.8(L) 32.0 - 35.7 g/dL 05/21/2024 3:41 PM EDT [facility] Platelet 456(H) 145 - 357 x10(3)/mc L 05/21/2024 3:41 PM EDT [facility] Mean Platelet Volume 11.1 7.6 - 12.9 fL 05/21/2024 3:41 PM EDT [facility] RDW Standard Deviation 55.2(H) 36.0 - 45.0 fL 05/21/2024 3:41 PM EDT [facility] RDW coefficient of variation 16.1(H) 11.4 - 13.8 % 05/21/2024 3:41 PM EDT [facility] NRBC% auto 0.0 % 05/21/2024 3:41 PM EDT [facility] NRBC Absolute 0.00 0.00 - 0.00 x10(3)/mc L 05/21/2024 3:41 PM EDT [facility] Blood VENOUS BLOOD SPECIMEN / Unknown IP Care Team Draw / Unknown 05/21/2024 3:00 PM EDT 05/21/2024 3:36 PM EDT Beverly Spears MD HEMATOLOGY ORDERABL ES Performing Organization Address City/State/[facility] Co de Phone Number [facility] [place] [address] * IR Tunneled Central Venous Access Non-Dialysis (05/21/2024 12:11 PM EDT) Anatomical Region Laterality Modality Chest, Vascular X-Ray Angiograph y Narrative 05/21/2024 5:12 PM EDT Table formatting from the original result was not included. Images from the original result were not included. IR PROCEDURE NOTE Procedure: Tunneled central venous catheter placement. Indication for Procedure: Per Ave Saldana is a 69 y.o. 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 ??[address] injection compatible single lumen catheter was [...] 14.1(H) <=4.9 mg/L 05/21/2024 10:05 AM EDT [facility] Blood VENOUS BLOOD SPECIMEN / Unknown IP Care Team Draw / Unknown 05/21/2024 4:58 AM EDT 05/21/2024 5:17 AM EDT Beverly Spears MD CHEMISTRY ORDERABLE S [facility] [place] [address] * US Retroperitoneal Complete (05/20/2024 10:36 AM EDT) WORKSTATION ID [id number] RAD Anatomical Region Laterality Modality Abdomen Ultrasound [...] questions, please contact the health primary care provider that requested your imaging first. ?Teofilo Ruiz, Staff Physician Electronically Signed Final Report ?? 05/20/2024 11:36 am Narrative 05/20/2024 11:37 AM EDT Renal ? (Signed Final 05/20/2024 11:36 am) PATIENT INFO: ID #: ? [id number] ?: ??[birth year] (69 yrs)(M) Name: ? AVE KOLB ? Visit Date: 05/20/2024 10:34 am PERFORMED BY: Attending: ?Joseph SOTOMAYOR, Teofilo Flores Resident: ? Kuldeep SOTOMAYOR, Trinidad Wright Performed By: ? Lulu Shin RDMS Referred By: ?BEVERLY SPEARS Location: ? [place] SERVICE(S) PROVIDED: URETRO - Retroperitoneal Complete - [id number] ? [id number] INDICATIONS: CKD, increase BUN TECHNIQUE/SCAN QUALITY: Scan [...] 05/20/2024 11:36 am) PATIENT INFO: ID #: [id number] : [birth year] (69 yrs)(M) Name: AVE KOLB Visit Date: 05/20/2024 10:34 am PERFORMED BY: Attending: Teofilo Ruiz MD Resident: Triniadd Light MD Performed By: Lulu Shin RDMS Referred By: BEVERLY SPEARS Location: [place] SERVICE(S) PROVIDED: URETRO - Retroperitoneal Complete - [id number] INDICATIONS: CKD, increase BUN TECHNIQUE/SCAN QUALITY: Scan [...] questions, please contact the health primary care provider that requested your imaging first. Teofilo Ruiz, Staff Physician Electronically Signed Final Report 05/20/2024 11:36 am Beverly Spears MD IMG US GEN ORDERABL ES * PTH (05/19/2024 5:09 PM EDT) Parathyroid Hormone 27 15 - 65 pg/mL 05/19/2024 6:15 PM EDT [facility] Blood VENOUS BLOOD SPECIMEN / Unknown IP Care Team Draw / Unknown 05/19/2024 5:09 PM EDT 05/19/2024 5:43 PM EDT Beverly Spears MD CHEMISTRY ORDERABLE S [facility] [place] [address] * (ABNORMAL) Iron and TIBC (05/19/2024 5:09 PM EDT) Iron 58 45 - 160 mcg/dL 05/19/2024 6:56 PM EDT [facility] Unsaturated Iron Binding Capacity 143 110 - 370 mcg/dL 05/19/2024 6:56 PM EDT [facility] TIBC 201(L) 250 - 450 mcg/dL 05/19/2024 6:56 PM EDT [facility] Iron Saturation 29 20 - 50 % 6:56 PM EDT [facility] Blood VENOUS BLOOD SPECIMEN / Unknown IP Care Team Draw / Unknown 05/19/2024 5:09 PM EDT 05/19/2024 5:43 PM EDT Beverly Spears MD CHEMISTRY ORDERABLE S [facility] [place] [address] * Ferritin (05/19/2024 5:08 PM EDT) Ferritin 191 31 - 409 ng/ml 05/19/2024 6:24 PM EDT [facility] Blood VENOUS BLOOD SPECIMEN / Unknown IP Care Team Draw / Unknown 05/19/2024 5:08 PM EDT 05/19/2024 5:43 PM EDT Beverly Spears MD CHEMISTRY ORDERABLE S Performing Organization Address City/[facility]/ZIP Co de Phone Number [facility] [place] [address] * C diff Screen (05/18/2024 11:31 AM EDT) Pathologist [facility] C Diff Interp Negative Negative 05/18/2024 3:02 PM EDT [facility] Comment:Clostridioides diffi cile is not present in the specimen. If patient is having diarrhea suspected to be from an infectious cause, then Soap & Water Contact Precautions are still required. If patient is having diarrhea with no suspected infectious cause use standard precautions. C Diff PCR Negative Negative, Indeterminate 05/18/2024 3:02 PM EDT [facility] Stool STOOL SPECIMEN / Unknown Non Blood Collection / Unknown 05/18/2024 11:31 AM EDT 05/18/2024 12:09 PM EDT Beverly Spears MD MICROBIOLOGY - GENE RAL ORDERABLES Performing Organization Address City/[facility]/ZIP Co de Phone Number [facility] [place] [address] * C Diff PCR (05/18/2024 11:31 AM EDT) Stool STOOL SPECIMEN / Unknown Non Blood Collection / Unknown 05/18/2024 11:31 AM EDT 05/18/2024 12:09 PM EDT Beverly Spears MD MICROBIOLOGY - GENE RAL ORDERABLES Performing Organization Address City/[facility]/ZIP Co de Phone Number [facility] [place] [address] * Electrolytes, urine, random (05/18/2024 8:57 AM EDT) Sodium, Urine 50 mMol/L 05/18/2024 12:09 PM EDT [facility] Potassium, Urine 13 mMol/L 05/18/2024 12:09 PM EDT [facility] Chloride, Urine 35 mMol/L 05/18/2024 12:09 PM EDT [facility] Urine URINE SPECIMEN / Unknown Non Blood Collection / Unknown 05/18/2024 8:57 AM EDT 05/18/2024 9:07 AM EDT Beverly Spears MD URINE ORDERABLES Performing Organization Address [facility]/ZIP Co de Phone Number [facility] [place] [address] * Creatinine, urine, random (05/18/2024 8:57 AM EDT) Only the most recent of2 resultswithin the time period is included. Creatinine, Urine 44 mg/dL 05/18/2024 9:36 AM EDT [facility] Urine URINE SPECIMEN / Unknown Non Blood Collection / Unknown 05/18/2024 8:57 AM EDT 05/18/2024 9:07 AM EDT Beverly Spears MD URINE ORDERABLES Performing Organization Address City/[facility]/ZIP Co de Phone Number [facility] [place] [address] * Vancomycin Level, Random (05/17/2024 5:49 AM EDT) Only the most recent of8 resultswithin the time period is included. Vancomycin, Random 22.4 mg/L 2023 6:58 AM EDT [facility] Comment:This level is for de termination of the patient's vancomycin ntjv-otjsv-kwd-curve (AUC) value. Contact the inpatient pharmacy for interpretation. Blood IP Care Team w / Unknown 05/17/2024 5:49 AM EDT 05/17/2024 6:13 AM EDT Treva Diaz MD CHEMISTRY ORDERABL ES Performing Organization Address City/[facility] Co de Phone Number [facility] [place] [address] * POCT Glucose (05/16/2024 11:46 PM EDT) Only the most recent of38 resultswithin the time period is included. [facility] Glucose, POC 148 65 - 199 mg/dL [facility] Comment: Supplemental ranges: <140 mg/dL before meals <180 mg/dL all other times of the day Blood 05/16/2024 11:4 6 PM EDT 05/16/2024 11:46 PM EDT Treva Diaz MD POINT OF CARE TEST ORDERABLES Performing Organization Address [facility] de Phone Number [facility] [place] [address] * (ABNORMAL) Differential, Automated (05/16/2024 5:14 AM EDT) Only the most recent of7 resultswithin the time period is included. [facility] Neutrophil % 79.4 % [facility] Neutrophil Absolute 9.22(H) 1.70 - 6.10 x10(3)/mc L [facility] Lymph % 6.6 % [facility] Lymphocytes Abs 0.8(L) 0.9 - 3.2 x10(3)/mc L [facility] Monocyte % 9.5 % [facility] Monocyte Abs 1.1(H) 0.3 - 0.9 x10(3)/mc L [facility] Eos % 0.0 % [facility] Eosinophils Abs 0.0 0.0 - 0.4 x10(3)/ L [facility] Basophil % 0.2 % [facility] Baso Absolute 0.0 0.0 - 0.1 x10(3)/ L [facility] Immature Gran % 4.30 % [facility] Comment: Immature granulocytes(IG's)percentage and absolute count will include metamyelocytes, myelocytes, and promyelocytes. Blood smears from CBCs yielding IG's will be scanned manually for concordance. If this scan disagrees with the automated IG or if promyelocytes are noted, a manual differential will be performed. Immature Gran Absolute 0.50(H) 0.00 - 0.04 x10(3)/[facility] LABORATORY Blood 05/16/2024 5:14 AM EDT 05/16/2024 5:38 AM EDT Narrative Resulting Agency Comment Spec In Lab Carlotta Davis MD HEMATOLOGY OR DERABLES [facility] [place] [id number] * MRSA PCR Screen ([facility]/CGP/APD/NLH) (05/15/2024 4:15 PM EDT) MRSA PCR Negative Negative [facility] MRSA (Interp) Methicillin-resist ant Staphylococcus aureus (MRSA) is NOT DETECTED The MRSA target DNA sequences (mec and SCC) were not detected within the acceptable ranges using the Xpert MRSA NxG on the GeneXpert Dx System (SiteWit). This suggests the absence of MRSA in the patient specimen submitted for testing. This test is cleared by the U.S. Food and Drug Administration for clinical use and its performance characteristics have been verified by the [facility] at [facility]. This result does not rule out the presence of any other organisms. Rare false negative results may occur if MRSA is present at low concentrations with much higher concentrations of other organisms including MRSE or S. aureus with an empty SCC cassette. [facility] Comment: [VERIFIED DATE]05.15.24 Verified By:Lupe Jensen (Electronic Signature) Nasopharyngeal Swab 05/15/20 4:15 PM EDT 05/15/2024 6:28 PM EDT Comment:Specimen Type->Nasop haryngeal Swab Narrative Resulting Agency Comment Spec In Lab Treva Diaz MD MOLECULAR ORDERABL ES Performing Organization Address [facility] Co de Phone Number [facility] [place] [address] * Scan Doc: Telemetry Strips (05/14/2024 12:47 PM EDT) Narrative 05/14/2024 12:47 PM EDT Ordered by an unspecified provider. Scanning Provider MEDIA MGR SCAN EXT O RDR/RSLT * Anaerobic Culture (05/14/2024 11:33 AM EDT) Anaerobic Culture No anaerobic organisms isolated [facility] Toe 05/14/2024 11:3 3 AM EDT 05/14/2024 12:33 PM EDT Comment:PROXIMAL RIGHT 2ND T OE Narrative Resulting Agency Comment Spec In Lab Gennaro Meyers MD MICROBIOLOGY - GENE RAL ORDERABLES Performing Organization Address [facility] de Phone Number [facility] [place] [address] * (ABNORMAL) Tissue culture (05/14/2024 11:33 AM EDT) Tissue Culture One colony of Coagulase negative Staphylococcus species(A) [facility] Gram Stain Few Neutrophils seen Rare Gram Positive Cocci in pairs seen Results called to and read back by Dr. Mihaela Galvan ??05/14/24 14:57:00 (A) [facility] Organism Coagulase negative Staphylococcus species(A) [facility] Organism Gram Positive Cocci in pairs(A) [facility] Toe 05/14/2024 11:3 3 AM [...] Sensitive Comment:Gentamicin i s not appropriate for [place]-therapy. Coagulase Negative Staphylococcus species Levofloxacin MICROSCAN METHOD [...] Sensitive Gennaro Meyers MD MICROBIOLOGY - GENE [facility] ORDERABLES [facility] [place] [address] * Surgical Pathology Report (05/14/2024 11:32 AM EDT) Surgical Pathology Report [id number] ? Location: [id number]; 0421; A The signing [...] Shima Verified: ??05/20/2024 11:25 Performed at: ??-[facility] Dept. of Pathology, [place] [address] 8Th Grade Teacher: Polly Barnhart MD, AP, ??CLIA Certificate: [id number] SPECIMEN(S) SUBMITTED A - RIGHT 2ND TOE, [...] Sections/Processi ng: Blocks submitted for decalcification: A1-A2. Neurology Technologist sections in 2 cassettes as follows: ?A1-A2: ??Longitudinal section of digit ??cmk [facility] 05/14/2024 11:3 2 AM EDT Gennaro Meyers MD PATHOLOGY/CYTOLOGY ORDERABLES [facility] [place] [address] * Specimen to Pathology (05/14/2024 11:32 AM EDT) AP Specimen 05/14/2024 11:3 2 AM EDT 05/14/2024 11:32 AM EDT Narrative [facility] - 05/14/2024 11:32 AM EDT Specimen requisition ordered. ??Separate Pathology report to follow Treva Diaz MD PATHOLOGY/CYTOLOGY ORDERABLES Performing Organization Address City/[facility]/ZIP Co de Phone Number [facility] [place] [address] * Scan, Peripheral Blood (05/13/2024 5:29 AM EDT) Only the most recent of2 resultswithin the time period is included. Plat estimate Normal [facility] RBC Morphology Abnormal [facility] Sofía Cells 1-5 /HPF [facility] Plat, Giant Less than 1 /HPF [facility] Blood 05/13/2024 5:29 AM EDT 05/13/2024 5:49 AM EDT Narrative Resulting Agency Comment Spec In Lab Carlotta Davis MD HEMATOLOGY OR DERABLES Performing Organization Address [facility] Co de Phone Number [facility] [place] [address] * Duplex for DVT, Leg, Unilat (05/12/2024 10:19 AM EDT) VB Text Report Department: Vascular Surgery Lab Patient: [id number] (AVE KOLB) CPT: [id number] Referring Physician: JULIUS COOK ?? Phone: Indications: [...] MD VASCULAR ORDERABLE S Performing Organization Address [facility] Co de Phone Number [facility] * (ABNORMAL) Sedimentation rate (05/12/2024 4:45 AM EDT) Sedimentation Rate Automated >119(H) 3 - 46 mm/hr [facility] Comment: Effective September 24, 2019 [...] MD HEMATOLOGY ORDERABLE S Performing Organization Address [facility] de Phone Number [facility] [place] [address] * ANGY, legs, multiple levels (05/12/2024 3:22 AM EDT) VB Text Report Department: Vascular Surgery Lab Patient: [id number] (AVE KOLB) CPT: [id number] Referring Physician: ARELY DICKSON ?? Phone: Indications: [...] Lactate, whole blood, send to lab ([facility]) (05/10/2024 6:55 AM EDT) Only the most recent of2 resultswithin the time period is included. Lactate WB 1.7 0.5 - 2.2 mmol/L [facility] Blood 05/10/2024 6:55 AM EDT 05/10/2024 7:00 AM EDT Narrative Resulting Agency Comment Spec In Lab Arely Dickson MD CHEMISTRY ORDERABLES Performing Organization Address City/[facility]/ZIP Co de Phone Number [facility] [place] [id number] * CK (05/10/2024 6:55 AM EDT) Creatine Kinase 58 0 - 200 unit/L [facility] Blood Venous Draw / Unknown 05/10/2024 6:55 AM EDT 05/10/2024 7:41 AM EDT Narrative Resulting Agency Comment Spec In Lab Emmanuel Corey DO CHEMISTRY ORDERABLES Performing Organization Address City/[facility]/ZIP Co de Phone Number [facility] [place] [address] * MRI Foot wwo Contrast Right (05/10/2024 5:51 AM EDT) WORKSTATION ID [id number] RAD Anatomical Region Laterality Modality Foot Right [...] questions please contact the health primary care provider that requested your imaging first. ? Narrative [...] have questions please contactthe health primary care provider that requested your imaging first. Arely Dickson MD IMG MRI ORDERABLES * Urea nitrogen, urine, random (05/10/2024 4:15 AM EDT) Urea Nitrogen, Urine 580 mg/dL [facility] Urine 05/10/2024 4:15 AM EDT 05/10/2024 4:23 AM EDT Narrative Resulting Agency Comment Spec In Lab Arely Dickson MD URINE ORDERABLES Performing Organization Address City/[facility]/ZIP Co de Phone Number [facility] [place] [address] * Sodium, urine, random (05/10/2024 4:15 AM EDT) Sodium, Urine <20 mmol/L [facility] Urine 05/10/2024 4:15 AM EDT 05/10/2024 4:23 AM EDT Narrative Resulting Agency Comment Spec In Lab Arely Dickson MD URINE ORDERABLES Performing Organization Address City/[facility]/ZIP Co de Phone Number [facility] [place] [address] * (ABNORMAL) Skin/Superficial Wound Culture Toe (05/10/2024 2:56 AM EDT) Skin/Superfic ial Wound Culture Rare mixed bacterial morphotypes suggestive of normal cutaneous armani including Rare Gram Negative Rods (A) [facility] Gram Stain Many Neutrophils seen Few Gram Positive Cocci seen (A) [facility] Organism Gram Negative Rods(A) [facility] Organism Gram Positive Cocci(A) [facility] Superficial Wound TOE STRUCTURE / Unknown 05/10/2024 2:56 AM EDT 05/10/2024 5:18 AM EDT Comment:Right toe wound Narrative Resulting Agency Comment Spec In Lab Arely Dickson MD MICROBIOLOGY - GENER AL ORDERABLES Performing Organization Address City/[facility]/ZIP Co de Phone Number [facility] [place] [address] * (ABNORMAL) Urinalysis without microscopic (05/10/2024 2:42 AM EDT) Glucose, Urine Dipstick Negative Negative mg/dL [facility] Protein, Urine Dipstick 30(A) Negative mg/dL [facility] Bilirubin, Urine Dipstick Negative Negative mg/dL [facility] Comment: Clinical correlation required for positive Urine Bilirubin results as false positive may occur with some drugs and drug related products. If a false positive is suspected a serum total bilirubin should be considered if clinically indicated. Urobilinogen, Urine Dipstick Normal Normal mg/dL [facility] pH, Urn (dipstick) 5.5 5.0 - 8.0 [facility] Blood, Urine Dipstick Large(A) Negative mg/dL [facility] Ketone, Urine Dipstick Negative Negative mg/dL [facility] Nitrite, Urine Dipstick Negative Negative [facility] Leukocytes, Urine Dipstick Small(A) Negative [facility] Appearance, Urine Dipstick Cloudy(A) Clear [facility] Specific [place] Urine Automated 1.017 1.005 - 1.030 [facility] Color, Urine Dipstick [place](A) Yellow [facility] Urine 05/10/2024 2:42 AM EDT 05/10/2024 2:57 AM EDT Narrative Resulting Agency Comment Spec In Lab Arely Dickson MD URINE ORDERABLES [facility] [place] [address] * EKG 12 Lead (05/10/2024 2:38 AM EDT) Ventricular rate 107 BPM MUSE SYSTEM QRS Duration 114 ms MUSE SYSTEM Q-T Interval 324 ms MUSE SYSTEM QTC Calculated (Bezet) 432 ms MUSE SYSTEM Calculated R Mcdaniel -46 degrees MUSE SYSTEM Calculated T Mcdaniel 47 degrees MUSE SYSTEM INTERPRETATION Atrial fibrillation Left axis deviation Abnormal ECG No previous ECGs available Confirmed by MD SAMUELS BRUCE ([id number]) on 05/11/2024 3:17:18 PM MUSE SYSTEM 05/10/2024 2:38 AM EDT 05/11/2024 3:17 PM EDT Unknown ECG ORDERABLES MUSE SYSTEM * XR Chest One View (05/10/2024 2:37 AM EDT) [facility] WORKSTATION ID [id number] [facility] Anatomical Region Laterality Modality Chest N/A Digital Radiogra phy Impressions 05/10/2024 3:27 AM EDT Bibasilar atelectasis. Thank you for letting us participate in the care of this patient. ??If you are a health care provider and have any questions regarding this report, please contact the number below. ??For patients who have questions please contact the health primary care provider that requested your imaging first. ? Narrative [...] have questions please contactthe health primary care provider that requested your imaging first. Arely Dickson MD IMG DX ORDERABLES * Blood culture (05/10/2024 2:32 AM EDT) Blood Culture No growth at 5 days. [facility] Blood STRUCTURE OF RIGHT HAND / Unknown 05/10/2024 2:32 AM EDT 05/10/2024 4:17 AM EDT Narrative Resulting Agency Comment Spec In Lab Arely Dickson MD MICROBIOLOGY - BLOOD ORDERABLES [facility] [place] [address] * Type and Screen Validity (05/10/2024 2:20 AM EDT) T&S only valid at [facility] LABORATORY Comment:This Type and Screen result is only valid at the [facility] Hospital Blood 05/10/2024 2:20 AM EDT 05/10/2024 2:49 AM EDT Narrative Resulting Agency Comment Spec In Lab Anita Camacho MD BLOOD BANK LAB ORDER ANGELIQUE [facility] [place] [address] * ABORH Recheck Status (05/10/2024 2:20 AM EDT) ABORH Recheck Order Order Placed [facility] ABORH Type Recheck Completed [facility] Blood 05/10/2024 2:20 AM EDT 05/10/2024 2:49 AM EDT Narrative Resulting Agency Comment Spec In Lab Anita Camacho MD BLOOD BANK LAB ORDER ANGELIQUE Performing Organization Address City/[facility] Co de Phone Number [facility] [place] [address] * (ABNORMAL) Prothrombin Time (05/10/2024 2:20 AM EDT) Prothrombin Time 27.9(H) 9.4 - 12.5 sec [facility] International Normalization Ratio 2.5 [facility] Comment: An INR <2.0 indicates [...] MD HEMATOLOGY ORDERABLE S Performing Organization Address [facility]/ZIP Co de Phone Number [facility] [place] [address] * (ABNORMAL) Hemoglobin A1c (05/10/2024 2:20 AM EDT) Hemoglobin A1c 5.9(H) 4.3 - 5.6 % [facility] Comment: Reference Range: 4.3 - [...] Mellitus, Diabetes Care 2013; 36: Suppl. 1, D78-48 Estimated Average Glucose See note mg/dL [facility] Comment: Estimated Average Glucose not appropriate for patients over 70 years of age. Blood 05/10/2024 2:20 AM EDT 05/10/2024 2:36 AM EDT Narrative Resulting Agency Comment Spec In Lab Arely Dickson MD CHEMISTRY ORDERABLES Performing Organization Address [facility] Co de Phone Number [facility] [place] [address] * Film Library- Storage Only CT Lower Extremity (2024 9:16 PM EDT) Narrative [facility] - 2024 9:16 PM EDT This exam is auto-finalizing. It's purpose is for storage only. Arely Dickson MD IMG FILM LIBRARY ORD ERABLES Performing Organization Address [facility]/ZIP Co de Phone Number [place], [place] * Film Library- Storage Only CT Chest Abdomen Pelvis (2024 9:16 PM EDT) Narrative [facility] - 2024 9:16 PM EDT This exam is auto-finalizing. It's purpose is for storage only. Arely Dickson MD IMG FILM LIBRARY ORD ERABLES [facility] [place] from Last 3 Months Advance Directives * Attempt Cardiopulmonary Resuscitation - Inpatient (Latest Code Status on File) Date Activated Date Inactivated Comments 05/10/2024 2:17 AM 05/23/2024 6:20 PM Question Answer Comments Code Status decision made by: Patient Content of discussion: Full code Healthcare Agents on File Name Relationship Healthcare Agent Relationship Communication Eddie Kolb Son/[id number] Health Care Agent Care Teams Learning And Development Officer Relationship Specialty Start Date End Date None None PCP - General 11/26/17
--- OUTSIDE RECORDS SUMMARY | 2024-06-19 16:32 | XMS_ITS | Encounter Summary ---
Author Organization [facility] Address [address] [place] [address] Care Team Providers Care Health Education Director Name Role Phone Cruzito Hager MD Primary Care Provider Lisa chamberlain Encounter Details Date Type Department Care Team (Late st Contact Info) Description 07/11/2020 Lab Requisition [facility] Pathology & Laboratory Medicine - [facility] [address] [place] [address] Outr Resulting Lab, Provider Social History Tobacco [...] MICROBIOLOGY - GENERAL ORDERABLES Performing Organization Address City/State/[facility] Co de Phone Number [facility] [address] [place] [address] * COVID-19 TESTING (07/11/2020 8:50 EDT) COVID-19 rt-PCR Result Negative Negative 07/11/2020 19:36 EDT [facility] Comment: This test has [...] history, and epidemiological information. Performed on the Kontagenther Fusion instrument Performing Lab [place] [facility] Lab 07/11/2020 19:36 EDT [facility] Swab 07/11/2020 8:50 EDT 07/11/2020 15:32 EDT Provider Outr Resulting Lab MICROBIOLOGY - GENERAL ORDERABLES Performing Organization Address [facility] Co de Phone Number [facility] [address] [place] [address] documented in this encounter Visit Diagnoses Not on filedocumented in this encounter Care Teams Health Education Director Relationship Specialty Start Date End Date Cruzito Hager MD PCP - General 06/14/11 documented as of this encounter
--- OUTSIDE RECORDS SUMMARY | 2024-06-19 16:32 | XMS_ITS | Encounter Summary ---
Author Organization [facility] Address [address] [place] [address] Care Team Providers Care Revenue Officer Name Role Phone Cruzito Hager MD Primary Care Provider U cintia Encounter Details Date Type Department Care Team (Latest Contact Info) Description 01/15/2015 9:25 EDT - 01/15/2015 23:59 EDT Hospital Encounter [address] [address] Unknown, Provider, Discharge Disposition: Home or Self Care Social History Tobacco Use Types Packs/Day Years Used Date Smoking Tobacco: Never Assessed Sex and Gender Information Value Date Recorded Sex Assigned at Not on file Gender Identity Not on file Sexual Orientation Not on file documented as of this encounter Discharge Disposition Disposition Code Departure Means Destination Home or Self Intermediate documented in this encounter Plan of Treatment Not on file documented as of this encounter Visit Diagnoses Not on filedocumented in this encounter Care Teams Revenue Officer Relationship Specialty Start Date End Date Cruzito Hager MD PCP - General 06/14/11 documented as of this encounter
--- OUTSIDE RECORDS SUMMARY | 2024-06-19 16:32 | XMS_ITS | Encounter Summary ---
Author Organization [facility] [place] [address] Care Team Providers Care Cryptozoologist Name Role Phone None Primary Care Provider Unavailabl e Encounter Details Date Type Department Care Team (Late st Contact Info) Description 05/30/2024 Telephone [place] [id number] Lu Mcfarland [facility] [address] Social History Tobacco Use Types Packs/Day Years Used Date Smoking Tobacco: Former Cigarettes 14 0.7 S tarted: 2023 Smokeless Tobacco: Never Alcohol Use Standard Drinks/Week Comments Yes 0 (1 standard drink = 0.6 oz pur e alcohol) 3-[address] [facility] IPV Inpatient Questions Answer Date Recorded Does [...] in five days. Per the unit nurse banking center manager, patient, has quite a bitof edema in both of his legs. His edema is much worse. He also states that patient is being treated for a sacral decubitus which could be causing the CRP increase. The facility has an MD and [facility] providing medical care to the patients and [...] per the rehab with MD and [facility] EOT visit scheduled in ID next week Repeat lab work early next week: CBC w/diff, CMP, and CRP Lu Mcfarland APRN, Infectious Disease 05/30/2024 12:30 PM documented in this encounter Plan of Treatment Not on file documented as of this encounter Visit Diagnoses Not on filedocumented in this encounter Care Teams Cryptozoologist Relationship 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
--- OUTSIDE RECORDS SUMMARY | 2024-06-19 16:34 | XMS_ITS | Encounter Summary ---
Author Organization [place] [id number] Care Team Providers Care Biometrics Head Name Role Phone None Primary Care Provider Unavailabl e Reason for Visit * Auth/Cert (Routine) Specialty Diagnoses / Procedures Referred By Contac t Referred To Contact Diagnoses Septic shock septiic shock Procedures ER Tho Aquino MD [facility] [place] [address] [facility] Referral ID Status Reason Start Date Expiration Date Visits Re quested Visits Authorized [id number] 1 1 Encounter Details Date Type Department Care Team (Late st Contact Info) Description 05/22/2024 4:33 PM EDT Anesthesia Event [place] [address] Soledad Doyle MD [facility] [place] [address] Davie Le MD [facility] [place] [address] Anesthesia Record Procedure Summary Procedure Name Responsible [...] Flowers 05/21/24 1125 by Sky Shelton RN PIV 05/10/24; (osh); 18 gauge; median cubital vein (antecubital fossa), left; 05/23/24; 1531 05/10/24 0000 by Williams Hines RN 05/23/24 1531 by Juan José Lai RN PIV 05/14/24; 1236; 22 gauge; metacarpal vein (top of hand), right; 05/23/24; 1531 05/14/24 1236 by Opal Stern RN 05/23/24 1531 by Juan José Lai RN Tunneled Central Line 05/21/24; 1128; Single Lumen; 8 Fr; subclavian vein, right; placement verified by x-ray; MD Flowers; removed per policy/procedure, no longer indicated, site care per policy/procedure; Removed by [facility]; 06/10/24 05/21/24 1128 by Sky Shelton RN 06/10/24 0000 by Nicky Eller RN documented in this encounter Social History [...] Procedure Summary Date: 05/22/24 Room / Location: [facility] 5 / [facility] Anesthesia Start: 1633 Anesthesia Stop: 1649 Procedures: EGD, UPPER GI ENDOSCOPY (WRVU 2.09) (Trunk) EGD, W CONTROL OF BLEEDING, ANY METHOD (WRVU 3.56) EGD, W DIRECTED SUBMUCOSAL INJECTION(S) (WRVU 2.39) Diagnosis: (? melena) Surgeons: Jonn Mena MD Responsible Provider: Soledad Doyle MD Anesthesia Type: MAC ASA Status: 3 All Anesthesia Providers: Anesthesiologist: Soledad Doyle MD DROSOPHERE OPERATOR: Gennaro Real CRNA Vitals Value Taken Time BP 168/83 05/22/24 1740 Temp Pulse Resp SpO2 97 % 05/22/24 1750 Pain Level 0 05/22/24 1745 Patient Location: PACU/[facility] Level of Consciousness: Conscious but Sleepy Pain [...] Access Non-Dialysis 05/21/2024 Juan José Flowers MD [facility] INTERVENTIONL RAD PRO AMPUTATION METATARSAL+TOE, SINGLE Right 05/14/2024 AMPUTATION, TRANSMETATARSAL TOE, ONE TOE (WRVU 6.64) performed by Elkin Garcia MD at [facility] MAIN OR Social History Tobacco Use Smoking [...] mg documented in this encounter Care Teams Biometrics Head Relationship 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
--- OUTSIDE RECORDS SUMMARY | 2024-06-19 16:34 | XMS_ITS | Encounter Summary ---
[place] [address] Care Team Providers Care Cheesemaking Laborer Name Role Phone None Primary Care Provider Unavailabl e Reason for Referral * Consultation (Routine) - Authorized Specialty Diagnoses / Procedures Referred By Contac t Referred To Contact Nephrology Diagnoses Stage 4 chronic kidney disease Juan José Harrison MD [facility] GENERAL [place] [address] [facility] [address] [place] [phone] Referral ID Status Reason Start Date Expiration Date Visits Requested Visits Authorized [id number] Authorized Specialty Service Requested 05/23/2024 05/23/2025 1 1 * Consultation (Routine) - Authorized Specialty Diagnoses / Procedures Referred By Contac t Referred To Contact Infectious Diseases Diagnoses Osteomyelitis of second toe of right foot Rodriguez Hein MD [facility] [place] [address] [facility] Infectious Dis [address] [place] [phone] Referral ID Status Reason Start Date Expiration Date Visits Requested Visits Authorized [id number] Authorized Assume Subset of Care 05/17/2024 05/17/2025 1 1 Reason for Visit * Auth/Cert (Routine) Specialty Diagnoses / Procedures Referred By Contcarlos t Referred To Contact Diagnoses Septic shock septiic shock Procedures ER Tho Aquino MD [facility] [place] [address] [facility] Referral ID Status Reason Start Date Expiration Date Visits Re quested Visits Authorized [id number] 1 1 Encounter Details Date Type Department Care Team (Latest Contact Info) Description 05/10/2024 2:12 AM EDT - 05/23/2024 4:14 PM EDT Hospital Encounter Surgical Unit Level 4 [place] [id number] Tho Dickson MD [facility] [place] [address] Mary [place] [address] [place] [address] [place] [address] Septic shock; Altered tissue perfusion; Osteomyelitis of [...] pur e alcohol) 3-4 PER [facility] Inpatient Questions Answer Date Recorded [...] Jossy Shanks Patient Age: 69 y.o. Language: Mosotho Race: White Ethnicity: Not nor Admit date: [...] please contact your inpatient physician through the [facility] Floatman . Issues afterhours and on weekends will [...] oxygen, HFpEF, HTN who presented to [facility] for rt LE cellulitis, transferred to [facility] for septic shock. At [...] knee. Fevers & chills for last 24hrs. [place] lightheaded, weak, & couldn't get out of [...] prior to OSH departure. On arrival to [facility]: HR 96, o2 sat [...] care, the same day as transfer to [facility]. On the general medicine [...] border dressing. (Melgisorb Ag 6x6 PS # [id number]) (Melgisorb Ag 4x4 PS # [id number]) Sacrum/ischium: open to air, utilize Z-guard if [...] (!) 167.8 kg (369 lb 14.9 oz) (05/23/24623) Functional and Cognitive Status: functional requiring rehab, [...] 05/10/2024 2:37 AM) Result Value WORKSTATION ID [id number] Impression Bibasilar atelectasis. Thank you for letting us participate in the care of this patient. If you are a health care provider and have any questions regarding this report, please contact the number below. For patients who have questions please contact the health adult care provider that requested your imaging first. Foot wwo Contrast Right (Exam End: 05/10/2024 5:51 AM) Result Value WORKSTATION ID [id number] Impression 1. Soft tissue irregularity of the [...] who have questions please contact the health adult care provider that requested your imaging first. Retroperitoneal Complete (Exam End: 05/20/2024 10:36 AM) Result Value WORKSTATION ID [id number] Impression 1. Very limited exam secondary to [...] who have questions, please contact the health adult care provider that requested your imaging first. [...] Center 06/03/2024 2:00 PM Lu Mcfarland APRN [facility] ID 5C [facility] 06/05/2024 4:00 PM Elkin Garcia MD [facility] ORTH 3C [facility] Your Discharge Medication List [...] as much as possible. Call your doctor ([phone]) if you develop: Fever greater than 100.5 Severe nausea or vomiting Increasing pain that is not controlled by pain medications Increasing redness, swelling, or drainage from incisions Change in sensation FOLLOW-UP APPOINTMENTS: 1. You will have follow-up appointments at [facility] as indicated below in Future Appointment and Orders. 2. You will need to have x-rays prior to your follow-up appointment listed below. Please come to Radiology, desk 3T, 1 hour BEFORE that appointment for these x-rays. Future Appointments Date Time Provider Department Center 06/03/2024 2:00 PM Lu Mcfarland APRN [facility] ID 5C [facility] 06/05/2024 4:00 PM Elkin Garcia MD [facility] ORTH 3C [facility] If you have questions [...] the day after the procedure, use an jear-ibm-ltzgnsk spray to numb your throat. Sucking on [...] occurs, please contact your Doctor. Please call [phone] before 8pm Mon-Fri with problems, questions or concerns. If you call after 8pm or on weekends, call the Hospital at [phone] and ask to speak to the Obstetrician And Gynaecologist transaction manager and the concrete conveyor operator will contact that person for you. When should you call for help? Call [phone] anytime you think you may need emergency [...] any problems. Where can you learn more? [facility] View your After Visit Summary and more online at [email or web address] If you would like to provide feedback about your hospital experience, please call the Office of Patient and Family Relations at . If you have received this After Visit Summary in error, please immediately return it in person to the department, or notify the [facility] Privacy Office by calling toll free at between the hours of 8AM and 5PM to arrange for our retrieval of the documents at no cost to you. Content Version: 12.2 ?? 2259-3660 [employer]. Care instructions adapted under license by [facility]. If you have questions about a medical condition or this instruction, always ask your healthcare professional. [employer] disclaims any warranty or liability for your [...] is during regular working hours, please call [phone]. If it is after 5 pm or a weekend or holiday, call [phone] and ask for the Dental Office Coordinator transaction manager for Interventional Radiology. You have received [...] PM Lu Mcfarland APRN Infectious Disease at [facility] Arrive at: Associate Account Executive Area 5C [phone] 06/05/2024 4:00 PM Elkin Garcia MD Orthopaedics at [facility] Arrive at: Associate Account Executive Area 3C [phone] Future Orders Complete By Expires OPAT: Order / Recommendation for Post Discharge IV Antibiotic Management [OHJ908 CPT(R)] As directed Process Instructions: If no progress note charted, please enter Clinical details in comments. Scheduling Instructions: Comments: - If this order was signed greater than 72 hours prior to [facility] discharge, please call to confirm the accuracy of this order. Please Fax all results to: [facility] Program Infectious Disease Section [facility], [place] [address] FAX: - After hours, please contact the Infectious Disease Physician transaction manager at . - Line care instructions - see flush/heparin orders. Facilities may follow organizational policies/practices regarding heparin. - MCC for medication administration/paste plant supervisor and catheter care/maintenance authorized. HD Line [...] draw labs every Sunday fax results to [facility] at [phone]. Please draw labs off PICC line. Please see [facility] order for lab draw details. Please RN visit for IV ABX teaching and ongoing assessment. Custodial for Medication Administration/Hookup and catheter care/maintenance: - Teach Patient/Caregiver goals/self-monitoring/therapy administration to independence per the Nursing Care Plan. - MCC visit frequency; initial, weekly and 2 PRN [...] 05/20/2024 11:36 am) PATIENT INFO: ID #: [id number].: [id number] (69 yrs)(M) Name: JOSSY SHANKS Visit Date: 05/20/2024 10:34 am PERFORMED BY: Attending: Teofilo Ruiz MD Resident: Trinidad Light MD Performed By: Lulu Shin RDMS Referred By: SABA SPEARS Location: [place] SERVICE(S) PROVIDED: URETRO - Retroperitoneal Complete - [id number] INDICATIONS: CKD, increase BUN TECHNIQUE/SCAN QUALITY: Scan [...] patients whohave questions, please contact the health adult care provider that requested your imaging first. Teofilo Ruiz, Staff Physician Electronically Signed Final Report 05/20/2024 11:36 am My clinical question: Patient to establish for CKD management Do not type below here [id number] Questions: My question or request is: See comment Provider Contact Information: None None None Discharge References/Attachments Low Phosphorus Foods: General Info (Mosotho) Low Potassium Foods: General Info (Mosotho) documented in this encounter Discharge Instructions * [...] the day after the procedure, use an fpwa-dgr-rkfgazb spray to numb your throat. Sucking on [...] occurs, please contact your Doctor. Please call [phone] before 8pm Mon-Fri with problems, questions or concerns. If you call after 8pm or on weekends, call the Hospital at [phone] and ask to speak to the Obstetrician And Gynaecologist transaction manager and the concrete conveyor operator will contact that person for [...] any problems. Where can you learn more? [facility] View your After Visit Summary and more online at [email or web address] If you would like to provide feedback about your hospital experience, please call the Office of Patient and Family Relations at . If you have received this After Visit Summary in error, please immediately return it in person to the department, or notify the [facility] Privacy Office by calling toll free at between the hours of 8AM and 5PM to arrange for our retrieval of the documents at no cost to you. Content Version: 12.2 ?? [phone] [employer]. Care instructions adapted under license by [facility]. If you have questions about a medical condition or this instruction, always ask your healthcare professional. [employer] disclaims any warranty or liability for your [...] is during regular working hours, please call [phone]. If it is after 5 pm or a weekend or holiday, call [phone] and ask for the Dental Office Coordinator transaction manager for Interventional Radiology. You have received [...] Center 06/03/2024 2:00 PM Lu Mcfarland APRN [facility] ID 5C [facility] 06/05/2024 4:00 PM Elkin Garcia MD [facility] ORTH 3C [facility] Your Discharge Medication List [...] as much as possible. Call your doctor ([phone]) if you develop: Fever greater than 100.5 Severe nausea or vomiting Increasing pain that is not controlled by pain medications Increasing redness, swelling, or drainage from incisions Change in sensation FOLLOW-UP APPOINTMENTS: 1. You will have follow-up appointments at [facility] as indicated below in Future Appointment and Orders. 2. You will need to have x-rays prior to your follow-up appointment listed below. Please come to Radiology, desk 3T, 1 hour BEFORE that appointment for these x-rays. Future Appointments Date Time Provider Department Center 06/03/2024 2:00 PM Lu Mcfarland APRN [facility] ID 5C [facility] 06/05/2024 4:00 PM Elkin Garcia MD [facility] ORTH 3C [facility] If you have questions or concerns: Sunday through Sunday, 8 AM - 5 PM, please call Dr. Saba Spears MD's office at . If it is after 5 PM, the weekend, or holidays, please call and ask to speak with theOrthopedic resident on-call. * Attachments The following attachments cannot be sent through Care Everywhere. * Low Phosphorus Foods: General Info (Mosotho) * Low Potassium Foods: General Info (Mosotho) documented in this encounter Medications at Time [...] spent >30 minutes (Day of Discharge Code 50521) involved in the final examination of the patient, discussion of the hospital stay, instructions for continuing care to all relevant caregivers, and preparation of discharge records, prescriptions and referral forms. Plans Discharge to [facility] rehab Follow-up scheduled with ID, ortho, provider at [facility] Please see the Discharge Summary for complete details of any medication changes and additional plans. * Yg Jaffe - 05/23/2024 2:44 PM EDT Office of Care Management(OCM)/Software Quality Assurance Engineer(RS) Patient Name: Jossy Shanks : 1955 Patient has been offered a SNF bed at [phone]. [facility] arranged for a BLS transport at 1530. Ambulance will need: Medicare ambulance form completed and signed (MD or Radius Corner Machine Operator) Copy of patient demographics [place] Out of Hospital DNR/DNI order, if active No MD to MD report necessary. Please call Nursing Report to , ask for music store manager. Info to accompany patient: Narcotic Prescriptions Copies of Medication Administration Records and IV sheets for past two weeks. Plan: Software Quality Assurance Engineer will be available to the patient and Radius Corner Machine Operator for further assistance. Patient to discharge to: [facility] [address] [place] [address] Yg Jaffe Software Quality Assurance Engineer * Shirley Samuel RN - 05/23/2024 12:05 PM EDT Physician Certification Statement for Non-Emergency Ambulance Services Section I - General Information Jossy Shanks 1955 Medicare Number: n/a Transport Date: 05/23/2024 (PCS is valid for round trips on this date and for all repetitive trips in the 60-day range as noted below.) Origin: [facility] Destination: [facility] [...] van (i.e. seated during transport, without medical tech or monitoring?): No 4) In addition [...] the Centers of Medicare and Medicaid Services (CMS) to support the determination of medical necessity [...] extremities. AAOx3 Labs: Labs personally reviewed in [facility] CBC: Recent Labs 05/23/24 0119 05/22/24 1118 [...] who have questions, please contact the health adult care provider that requested your imaging first. [...] who have questions please contact the health adult care provider that requested your imaging first. Chest One View Final Result Bibasilar atelectasis. Thank you for letting us participate in the care of this patient. If you are a health care provider and have any questions regarding this report, please contact the number below. For patients who have questions please contact the health adult care provider that requested your imaging first. SCOPY: Reports [...] with them as documented. Tl Steele MD [facility] Gastroenterology * Irene Bravo [...] Zhao RN - 05/22/2024 12:47 PM EDT Dust Handler spoke with JACKIE Nuñez from Endo regarding [...] Galvan MD - 05/22/2024 6:57 AM EDT [facility] Medicine - Red Team Inpatient [...] with PT - hoping to go to [facility] today Meds: pantoprazole 40 mg Intravenous BID [...] shoe, c/w pt - Bed ready at [facility] #IDDM Home regiment: 1.2mg liraglutide [...] upcoming EGD, and availability of bed at [facility]. -ordered T&S in case continues to drop [...] Mihaela Galvan MD 05/22/2024 PGY-3, Internal Medicine [facility] Medicine Red Team - Pager [phone] Associated attestation - Saba Spears MD - [...] will transfuse and monitor response. Dispo to [facility] for rehab pending Hgb stability and EGD. I have examined the patient myself and personally reviewed all studies. In addition, I certify thatI am a D-H credentialed attending provider with admitting privileges and that the patient meets or has met medical necessity to require an inpatient IPI level of care meeting a minimum of two midnights or is on the [facility] inpatient only procedure list (status C) due to: OM requiring IV abx * Lazaro Aaron, COMP FIELD CASE MANAGER - 05/21/2024 4:05 PM EDT Physical Therapy [...] with stable vital signs. Total Time: 34 ([phone]) minutes. TAx2 Lazaro Aaron PTA Pager: [phone] Physical Therapy Inpatient Rehabilitation Department * Penny [...] insight into deficits Vision: corrective lenses time lock expert Endurance: decreased activity tolerance Vitals: Stable on [...] 2-3 times/wk Total Minutes, Occupational Therapy: 40 ([facility] x3 ([phone])) Pager: [phone] Penny Rodriguez OT Occupational Therapy Rehabilitation Department [...] of : 1955 AGE: 69 y.o. Address: [address] [place] [phone] (home) Mobile: Telephone Information: Referring Provider: Anna [...] Galvan MD - 05/21/2024 6:30 AM EDT [facility] Medicine - Red Team Inpatient [...] 25.5* PLATELET 388* 416* 403* Recent Labs 05/21/2445705/20/24 0427 05/19/24 0511 NA 138 138 136 [...] Mihaela Galvan MD 05/21/2024 PGY-3, Internal Medicine [facility] Medicine Red Team - Pager [phone] Associated attestation - Saba Spears MD - [...] mid 7s. Appreciate GI consult. Dispo to [facility] pending Hgb and EGD. I have examined the patient myself and personally reviewed all studies. In addition, I certify thatI am a D-H credentialed attending provider with admitting privileges and that the patient meets or has met medical necessity to require an inpatient IPI level of care meeting a minimum of two midnights or is on the [facility] inpatient only procedure list (status C) due [...] Galvan MD - 05/20/2024 6:20 AM EDT [facility] Medicine - Red Team Inpatient [...] Pip-tazo and vanc c/w CTX Planning for [facility] central line, instead of PICC Has [...] Mihaela Galvan MD 05/20/2024 PGY-3, Internal Medicine [facility] Medicine Red Team - Pager [phone] Associated attestation - Saba Spears MD - [...] of two midnights or is on the [facility] inpatient only procedure list (status C) due [...] Ho PT, Doctor of Physical Therapy Pager: [phone] Physical Therapy Inpatient Rehabilitation Department * Rebeca [...] insight into deficits Vision: corrective lenses time lock expert Endurance: decreased activity tolerance Vitals: Stable on [...] times/wk Total Minutes, Occupational Therapy: 47 Pager: [phone] Rebeca Moeller OT Occupational Therapy Rehabilitation Department * Mihaela Galvan MD - 05/19/2024 6:43 AM EDT [facility] Medicine - Red Team Inpatient [...] PPI at this time - c/w probiotic #?KATAI - several de-sat ovn with noted snoring [...] Mihaela Galvan MD 05/19/2024 PGY-3, Internal Medicine [facility] Medicine Red Team - Pager [phone] Associated attestation - Saba Spears MD - [...] for a hospital day 9 nutrition evaluation. Dust Handler met with pt at bedside. Pt saidhe [...] follow. Active Orders Diet Carb Control diet 60// CHO counting level 2 Low Phosphorus Frequency: [...] unless consulted in the interim. Julissa Weathers Safety Leader * Mihaela Galvan MD - 05/18/2024 7:20 AM EDT [facility] Medicine [...] Medicine Hospital Medicine Red Team - Pager [phone] Associated attestation - Saba Spears MD - [...] Harrison MD - 05/17/2024 6:28 AM EDT [facility] Medicine Red Team Inpatient Progress Note [...] José Harrison MD 05/17/2024 PGY-3, Internal Medicine [facility] Medicine Red Team - Pager [phone] Associated attestation - Saba Spears MD - [...] of two midnights or is on the [facility] inpatient only procedure list (status C) due [...] performed by Elkin Garcia MD at [facility] Active Non-Hospital Problems Diagnosis Degenerative [...] [place] PT, Doctor of Physical Therapy Pager: [phone] Physical Therapy Inpatient Rehabilitation Department * Emmanuel [...] History: Housing: lives in a camper in [facility] Occupation: Former [employer], retired in [...] Component Value - Date/Time MRSA PCR Screen ([facility]/CGP/APD/NLH) [[id number]] Collected: 05/15/24 1615 Lab Status: Final result Specimen: Nasopharyngeal Swab Updated: 05/15/242012 MRSA Result Negative MRSA Interp -- Methicillin-resistant Staphylococcus aureus (MRSA) is NOT DETECTED The MRSA target DNA sequences (mec and SCC) were not detected within the acceptable ranges using the Xpert MRSA NxG on the GeneXpert Dx System (TwentyFour[employer]). This suggests the absence of MRSA in [...] Signature) Tissue Culture, Aerobic & Anaerobic Toe [[id number]] (Abnormal) Collected: 05/14/24 1133 Lab Status: Preliminary result Specimen: Toe Updated: 05/15/24 1212 Tissue culture [[id number]] (Abnormal) Collected: 05/14/24 1133 Lab Status: Preliminary result Specimen: Toe Updated: 05/15/24 1212 Tissue Culture No growth to date. Gram Stain -- Few Neutrophils seen Rare Gram Positive Cocci in pairs seen Results called to and read back by Dr. Mihaela Galvan 05/14/24 14:57:00 Organism Gram Positive Cocci in pairs Anaerobic Culture [[id number]] Collected: 05/14/24 1133 Lab Status: Preliminary result Specimen: Toe Updated: 05/15/24 1124 Anaerobic Culture No anaerobic organisms isolated to date Blood culture [[id number]] Collected: 05/10/24 0232 Lab Status: Final result Specimen: Blood from Hand, Right Updated: 05/15/24 0701 Blood Culture No growth at 5 days. Skin/Superficial Wound Culture Toe [[id number]] (Abnormal) Collected: 05/10/24 0256 Lab Status: Final [...] follow. Please page ID Red team (pager [phone]) with questions or concerns. Emmanuel Corey, DO Internal Medicine PGY-2 Pager: [phone] Epic Chat 05/16/2024 Associated attestation - Rodriguez [...] from the original note were not included. [facility] Medicine - Red Team Inpatient [...] Intake/Output Summary (Last 24 hours) at 05/16/2024 0682 Last data filed at 05/16/2024 0355 Gross [...] Component Value - Date/Time MRSA PCR Screen ([facility]/CGP/APD/NLH) [[id number]] Collected: 05/15/24 1615 Lab Status: Final result Specimen: Nasopharyngeal Swab Updated: 05/15/242012 MRSA Result Negative MRSA Interp -- Methicillin-resistant Staphylococcus aureus (MRSA) is NOT DETECTED The MRSA target DNA sequences (mec and SCC) were not detected within the acceptable ranges using the Xpert MRSA NxG on the GeneXpert Dx System (TwentyFour6). This suggests the absence of MRSA in [...] Signature) Tissue Culture, Aerobic & Anaerobic Toe [[id number]] (Abnormal) Collected: 05/14/24 1133 Lab Status: Preliminary result Specimen: Toe Updated: 05/15/24 1212 Tissue culture [[id number]] (Abnormal) Collected: 05/14/24 1133 Lab Status: Preliminary result Specimen: Toe Updated: 05/15/24 1212 Tissue Culture No growth to date. Gram Stain -- Few Neutrophils seen Rare Gram Positive Cocci in pairs seen Results called to and read back by Dr. Mihaela Galvan 05/14/24 14:57:00 Organism Gram Positive Cocci in pairs Anaerobic Culture [[id number]] Collected: 05/14/24 1133 Lab Status: Preliminary result Specimen: Toe Updated: 05/15/24 1124 Anaerobic Culture No anaerobic organisms isolated to date Blood culture [[id number]] Collected: 05/10/24 0232 Lab Status: Final result Specimen: Blood from Hand, Right Updated: 05/15/24 0701 Blood Culture No growth at 5 days. Skin/Superficial Wound Culture Toe [[id number]] (Abnormal) Collected: 05/10/24 0256 Lab Status: Final [...] PGY-1, Internal Medicine Red Team - Pager [phone] Associated attestation - Treva Diaz MD - [...] likely suture removal on 06/05/24. Please page [phone] with any questions or concerns. Activity: NWB until forefoot offloading shoe DVT prophylaxis: per primary, rec 30 days LVX or ASA81 BID Closure: Sutures (to be removed at Orthopaedic follow-up appointment) Dressing: bacitracin, xeroform, 4x4, kerlix, DEREK x 7 days Antibiotics: per primary Isra Rodriguez IV, DO 05/16/2024 Future Appointments Date Time Provider Department Center 06/05/2024 4:00 PM Elkin Garcia MD [facility] ORTH 3C [facility] * Mihaela Galvan MD - 05/15/2024 6:41 AM EDT Images from the original note were not included. [facility] Medicine - Red Team Inpatient [...] Procedure Component Value - Date/Time Tissue culture [[id number]] (Abnormal) Collected: 05/14/24 1133 Lab Status: Preliminary result Specimen: Toe Updated: 05/14/24 1459 Gram Stain -- Few Neutrophils seen Rare Gram Positive Cocci in pairs seen Results called to and read back by Dr. Mihaela Galvan 05/14/24 14:57:00 Organism Gram Positive Cocci in pairs Blood culture [[id number]] Collected: 05/10/24 0232 Lab Status: Preliminary result Specimen: Blood from Hand, Right Updated: 05/14/24 0701 Blood Culture No growth at 4 days. Skin/Superficial Wound Culture Toe [[id number]] (Abnormal) Collected: 05/10/24 0256 Lab Status: Final [...] PGY-1, Internal Medicine Red Team - Pager [phone] Associated attestation - Treva Diaz MD - [...] of two midnights or is on the [facility] inpatient only procedure list (status C) due [...] Center 06/05/2024 4:00 PM Elkin Garcia MD [facility]TH 3C [facility] * Savannah Sy RN [...] Center 06/05/2024 4:00 PM Elkin Garcia MD [facility]TH 3C [facility] * Mihaela Galvan MD - 05/14/2024 6:04 AM EDT [facility] Medicine - Red Team Inpatient [...] PGY-1, Internal Medicine Red Team - Pager [phone] Associated attestation - Treva Diaz MD - [...] OR for the above procedure. Please page [phone] if there are any concerns regarding OR [...] Galvan MD - 05/13/2024 6:28 AM EDT [facility] Medicine - Red Team Inpatient [...] PLATELET 186 165 141* Recent Labs 05/13/24 0505/12/24 04405/11/24 0200 NA 137 135 136 K 4.4 [...] PGY-1, Internal Medicine Red Team - Pager [phone] Associated attestation - Treva Diaz MD - [...] of two midnights or is on the [facility] inpatient only procedure list (status C) due to: RLE cellulitis with concern forosteomyelitis. Continue on iv antibiotics and follow up with orthopedics regarding any surgical debridement . * Sarwat Marti - 05/12/2024 2:20 PM EDT Glass Embosser Encounter Note Patient Name: Jossy Shanks : [id number] MR#: [id number] Admit Date: 05/10/2024 2:12 AM Hospital Day 2 days Narrative:Visited to introduce and assess acceptance of Glass [employer] services. Patient was sleeping and I will visit an other time. Assessment: Intervention and Outcome: Follow-up: Time in Direct Care: Sarwat Marti 05/12/2024 * Mihaela Galvan MD - 05/12/2024 6:36 AM EDT [facility] Medicine - Red Team Inpatient [...] PGY-1, Internal Medicine Red Team - Pager [phone] Associated attestation - Treva Diaz MD - [...] of two midnights or is on the [facility] inpatient only procedure list (status C) due to: RLE cellulitis with concern forosteomyelitis. Continue on iv antibiotics and discuss with orthopedics regarding any urgent need for surgical debridement. * Rodriguez Tian MD - 05/11/2024 10:23 AM EDT MEDICINE PAGER [phone] - [facility] Daily Progress Note Admit Date: 05/10/2024 Encounter [...] controlled Afib (Xarelto, dilt, coreg), admitted to [facility] on 05/10/2024 with LE [...] CHO counting level 2 Last BM documented: (COMP FIELD CASE MANAGER) DVT Prophylaxis: Heparin DOAC Code Status: Attempt [...] of two midnights or is on the [facility] inpatient only procedure list (status C) due [...] presented to a local emergency [facility] yesterday ([id number] birthday) due to ongoing wound issues and [...] Intake/Output Summary (Last 24 hours) at 05/10/2024 0916 Last data filed at 05/10/2024 0552 Gross [...] minimumof two midnights or is on the [facility] inpatient only procedure list (status C) due [...] Lasix, HTN on Losartan,who presented to [facility] for rt LE cellulitis, transferred to [facility] for septic shock. Interval [...] 05/10/2024 2:37 AM) Result Value WORKSTATION ID [id number] Impression Bibasilar atelectasis. Thank you for letting us participate in the care of this patient. If you are a health care provider and have any questions regarding this report, please contact the number below. For patients who have questions please contact the health adult care provider that requested your imaging first. foot pending [...] Thomas MD - 05/10/2024 2:56 AM EDT [facility] TeleICU Initial Assessment Note [...] hour(s)) Lactate, whole blood, send to lab ([facility]) Result Value Lactate WB 2.3 (H) Prothrombin [...] infection if clinical appearance is worrisome -Awaiting [facility] admission K+ level and [...] 81 18 (!) 160/94 100 % -- 05/22/24 1400 -- 84 bpm -- -- 173/89 98 % -- -- 05/22/24 1405 36.2 ??C (97.2 ??F) 77 bpm 84 18 173/89 99 % -- 05/22/24 1415 -- 78 bpm 87 18 [...] indication: Osteomyelitis, central venous access required for parts counterman antibiotic use IR workflow: Procedure request received [...] medical record. IR History: None listed at [facility] Anticoagulation/Antiplatelet: None listed Labs: [...] performed by Elkin Garcia MD at [facility] MAIN OR Social History and Habits: Social [...] and osteomyelitis s/p 2ng toe amputation requiring parts counterman IV antibiotic administration who presents to Interventional [...] medical record. IR History: None listed at [facility] Anticoagulation/Antiplatelet: None listed Labs: [...] performed by Elkin Garcia MD at [facility] MAIN OR Social History and Habits: Social [...] amputation. Isra Rodriguez IV, DO Orthopaedic Surgery [facility] * Carlotta Davis MD - 05/10/2024 [...] on home oxygen, HFpEF, HTN, admitted to [facility] on 05/10/2024, now on Hospital Day #0, for RLE cellulitis SUBJECTIVE History of Present Illness: Per admitting provider Jossy Shanks is a 69 y.o. year old male with PMH significant for IDDM, Afib rate controlled, CKD (bsl cr 1.5), COPD not on home oxygen, HFpEF, HTN who presented to [facility] for rt LE cellulitis, transferred to [facility] for RLE cellulitis after [...] knee. Fevers & chills for last 24hrs. [place] lightheaded, weak, & couldn't get out of [...] prior to OSH departure. On arrival to [facility]: HR 96, o2 sat [...] limbs -chronic Motor Exam: Upper Limb Bilateral: Letter Stamping Machine Operator Strength 5/5 Wrist Flexion/Extension 5/5 Elbow Flexion/Extension 5/5 Lower Limb Bilateral: Dorsi/Plantarflexion 5/5 Knee Flexion/Extension 5/5 Finger to nose test not significant Gait not assessed LABS: CBC: Recent Labs 05/10/24219 WBC 28.5* HGB 11.4* HCT 34.5* PLATELET 135* NEUTROABS 25.39* Chemistry: Recent Labs 05/10/2465405/10/24219 NA 128* 129* K 5.0 5.3* CL [...] in the last 7068 hours. Invalid input(s): [id number] Recent Labs 05/10/24219 HA1C 5.9* Lipids: Heme: No results for input(s): LDH, HAPTOGLOBIN, URICACID in the last 168 hours. ABG (Arterial Blood Gas): No results found for: PHART, PO2ART, PAW9KTN, FWN2XBE VBG (Venous Blood Gas): No results for input(s): PHVEN, QYE9MSY, PO2VEN, MEZ6MFH, BEVEN, CZA0WOD in the last 72hours. EKG: No results [...] 05/10/2024 2:37 AM) Result Value WORKSTATION ID [id number] Impression Bibasilar atelectasis. Thank you for letting us participate in the care of this patient. If you are a health care provider and have any questions regarding this report, please contact the number below. For patients who have questions please contact the health adult care provider that requested your imaging first. Foot wwo Contrast Right (Exam End: 05/10/2024 5:51 AM) Result Value WORKSTATION ID [id number] Impression 1. Soft tissue irregularity of the [...] who have questions please contact the health adult care provider that requested your imaging first. Medications: Scheduled: [START ON 05/11/2024] dilTIAZem 60 mg Oral Q6H VLAD heparin (porcine) 7,500 Units Subcutaneous Q8H [facility] [START ON 05/11/2024] insulin glargine (Lantus;Semglee) (100 [...] controlled Afib (Xarelto, dilt, coreg), admitted to [facility] on 05/10/2024, now on [...] DOAC GI PPx: Diet: Carb Control diet / CHO counting level 2 Lines: PIV 05/10/24 18 gauge median cubital vein (antecubital fossa), right (Active) Number of days: 0 PIV 05/10/24 18 gauge median cubital vein (antecubital fossa), left (Active) Number of days: 0 Level of care: Med/surg Vitals: Q4H D/c planning: pending Code status: Full code Carlotta Davis MD Internal Medicine PGY2 Medicine Team: Rigo, Pager #[phone] Associated attestation - Treva Diaz MD - [...] oxygen, HFpEF, HTN who presented to [facility] for rt LE cellulitis, transferred to [facility] for septic shock. Reports [...] knee. Fevers & chills for last 24hrs. [place] lightheaded, weak, & couldn't get out of [...] prior to OSH departure. On arrival to [facility]: HR 96, o2 sat [...] mobilizes w/out assistance. Darion Morgan is DPOA; [phone] Physical Exam: Vitals: Last value Range last [...] Anita Camacho MD Internal Medicine, PGY2 05/10/2024 [facility] Pager #[phone] documented in this encounter Procedure Notes * Juan José Flowers MD - 05/21/2024 11:49 AM EDT IR PROCEDURE NOTE Procedure: Tunneled central venous catheter placement. Indication for Procedure: Per Allyn MIMS, Jossy Shanks is a 69 y.o. male with PMH of CKD, DM, COPD, A.fib, admitted for RLE cellulitis andosteomyelitis s/p 2ng toe amputation requiring parts counterman IV antibiotic administration who presents to Interventional [...] [facility] Needs for Transition of Care: Plan for discharge is: Custodial Facility / Swing OPAT Orders: ID Consult Ordered Agency Referrals & Follow-up Care: Contact information for follow-up [facility] [address] [place] [address] Transportation: family or friend will provide Wheelchair [...] MEDICARE Payor: AAR MANAGED MEDICARE / [facility]: [facility] COMPLETE / Product Type: *No Product type* / Secondary Insurance: N/A Prescription Coverage: Yes This plan was formulated with input from patient and team. All are in agreement with plan. Shirley Samuel RN CM Perforator- Medicine Office of Care Management Ext: [phone] Pager: [phone] * Plan of Care - Juan José [...] Intervention: Identify and Manage Contributors Flowsheets (Taken 05/22/2024802 by Trice Zhao RN) Medication Review/Management: medications [...] Intervention: Prevent or Manage Infection Flowsheets (Taken 05/20/2024802 by Evelyn Prakash, JACKIE) Fever Reduction/Comfort Measures: [...] and were able to stop the bleeding. Dust Handler carolyn a hemoglobin when patient got back [...] Operative Note Patient Name: Jossy Shanks : [id number] MR#: [id number] Case Date: 05/22/2024 Surgeon: Surgeons and Role: [...] Non-Dialysis 05/21/2024 Juan [address] Flowers MD [facility] INTERVENTIONL RAD PRO AMPUTATION METATARSAL+TOE, SINGLE Right 05/14/2024 AMPUTATION, TRANSMETATARSAL TOE, ONE TOE (WRVU 6.64) performed by Elkin Garcia MD at [facility] MAIN OR SOCIAL HX: Social History Socioeconomic [...] %-100 %] IO 05/20 07 - 05/21 0700 In: 1777 [P.O.:1742; I.V.:35] [...] IMAGING: Reports and images personally reviewed in [facility]. Images independently interpreted. IR Tunneled Central Venous [...] who have questions, please contact the health adult care provider that requested your imaging first. [...] who have questions please contact the health adult care provider that requested your imaging first. Chest One View Final Result Bibasilar atelectasis. Thank you for letting us participate in the care of this patient. If you are a health care provider and have any questions regarding this report, please contact the number below. For patients who have questions please contact the health adult care provider that requested your imaging first. SCOPY: Reports and images personally reviewed in [facility] OSH RECORDS: Obtained and personally reviewed ASSESSMENT [...] seen and examined the patient with Dr. uQiroga. We reviewed the medical record and pertinent [...] anticoagulation and significant anemia. Tl Steele MD [facility] Gastroenterology * Plan of [...] Pain Flowsheets (Taken 05/20/2024802) Pain Management Interventions: tmkfiq-wuc-juszn dosing utilized breathing exercises care clustered diversional [...] to be determined Plan for discharge is: Custodial Facility / Swing Outpatient Agency/Support Group Needs: Homecare agency OPAT Orders: ID Consult Ordered Location: Home Home Health Services: IV Therapy Agency Referrals: Based on discussions with the multi-disciplinary healthcare team, the patient would benefit from SNF level of care at discharge. I have met with the patient to: discuss discharge planning needs. provide the [facility], Office of Care Management letter from the Footwear Machinery Instructor pertaining to rehab referrals. provide a letter describing our affiliations within the [facility] and educate about their right to choose where referrals are sent. provide the CMS Star Quality Rating handout. review the different levels of rehab including SNF, swing, and acute. provide a list of facilities within their preferred geographic area. request that they provide at least three choices for referral. They have requested referrals to: [facility] ([place]) [address] [place] [address] [facility] [address] [place] [address] -OFFERED BED, PENDING INSURANCE AUTHORIZATION 05/20 [address] [facility] [address] [place] [address] [facility] [address] [place] [address] [facility] ([facility]) [address] [place] [address] (Accepts pts only after exhausting all other local SNF options) Does patient have COVID vaccine card: Yes; Copy obtained: No Note routed to a Software Quality Assurance Engineer who will communicate referrals to facilities and provide any required information. Transportation: family or friend will provide Barriers to discharge: Discharge planning Plan going forward: Referrals routed for SNF/Swing. Care Management will continue to follow and assist with discharge planning and coordination of care as indicated. Anticipated Date of Discharge: 05/21/2024 Shirley Samuel RN CM Perforator- Medicine Office of Care Management Ext: [phone] Pager: [phone] * Plan of Care - Pretty Ramirez [...] shock at his time of transfer to [facility]. Creatinine on admission was 3.94 mg/dL, [...] performed by Elkin Garcia MD at [facility] OR insulin glargine-ygfn (Semglee) (100 unit/mL) [...] Flowsheets (Taken 05/18/2024 0838) Pain Management Interventions: otcnhc-mcu-tkcgn dosing utilized care clustered diversional activity provided [...] television Taken 05/15/2024 1825 Pain Management Interventions: psonoz-tdm-mbntn dosing utilized position adjusted pillow support provided [...] and Manage Fall Risk Flowsheets (Taken 05/16/2024 3036) Safety Promotion/Fall Prevention: activity supervised clutter free [...] smartphone Taken 05/15/2024 1825 Pain Management Interventions: xvpkfj-ioq-shaop dosing utilized position adjusted pillow support provided [...] performed by Elkin Garcia MD at [facility] OR Active Non-Hospital Problems Diagnosis Degenerative [...] WNL / WFL and corrective lenses time lock expert Communication: WFL Range of motion, strength, coordination: [...] planning. Total Minutes, Occupational Therapy: 90 (evaluation ([id number])) 2017 OT Evaluation Code Rationale: Diagnosis & [...] and measurable assessment of functional outcome. Pager: [phone] Penny Rodriguez OT 05/16/2024 Occupational Therapy Rehabilitation [...] have. Alternately, during off-hours you may call [phone] to contact a pharmacist. * Consult Note [...] Ongoing (Interventions Implemented as Appropriate) 05/15/20241127 by Eveyln Prakash RN Outcome: Ongoing (Interventions Implemented as [...] on intermittently Intervention: Prevent Infection Flowsheets (Taken 05/15/2024 07) Infection Prevention: hand hygiene promoted environmental surveillance [...] briefly on vasopressors, and then transferred to [facility] for further management. 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 05/14. Reports a hx of cellulitis in the Left leg back in 2009 for which he states he did a course of 6 week son IV abx from [facility]. Has gotten cellulitis about half a dozen times in total. Review of Systems: Pertinent positives and negatives noted in HPI. 14 point ROS otherwise negative except noted in HPI. Allergies/Adverse drug reactions: No Known Allergies Family History: Family History No data available Social History: Housing: lives in a camper in [facility] Occupation: Former [employer], retired in [...] Procedure Component Value - Date/Time Blood culture [[id number]] Collected: 05/10/24 0232 Lab Status: Final result Specimen: Blood from Hand, Right Updated: 05/15/24 0701 Blood Culture No growth at 5 days. Tissue culture [[id number]] (Abnormal) Collected: 05/14/24 1133 Lab Status: Preliminary result Specimen: Toe Updated: 05/14/24 1459 Gram Stain -- Few Neutrophils seen Rare Gram Positive Cocci in pairs seen Results called to and read back by Dr. Mihaela Galvan 05/14/24 14:57:00 Organism Gram Positive Cocci in pairs Skin/Superficial Wound Culture Toe [[id number]] (Abnormal) Collected: 05/10/24 0256 Lab Status: Final [...] follow. Please page ID Red team (pager [phone]) with questions or concerns. Emmanuel Corey, DO Internal Medicine PGY-2 Pager: [phone] Epic Chat 05/15/2024 Associated attestation - Rodriguez [...] MEDICARE Payor: AARP MANAGED MEDICARE / Plan: [employer] MANAGED MEDICARE COMPLETE / Product Type: *No Product type* / Secondary Insurance: N/A Last Physical Therapy Recommendation: with Last Occupational Therapy Recommendation: with Plan for discharge is: Home w/ Services Outpatient Agency/Support Group Needs: Homecare agency OPAT Orders: ID Consult Ordered Location: Home Home Health Services: IV Therapy Agency Referrals: [place] [address] or Home Care Orders: 1. IV Antibiotics: [...] Plan going forward: Barbie routed and pended. SAHARA routed. Care Management will continue to follow and assist with discharge planning and coordination of care as indicated. 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 Surgical Infection Prevention Bundle Used? N/A Attestation: Case Date: 05/14/2024 I was present and I participated during the entire procedure (does not need to include opening and closing). Elkin Garcia MD 05/14/2024 * Consult Note - Hakeem Villa, [facility] - 05/14/2024 7:15 AM EDT [facility] Pharmacokinetics Note Drug: Vancomycin Pharmacokinetic target: AUC24 (range) 400-600 mg/L.hr Jossy Shanks is a 69-year-old male receiving intermittent Vancomycin doses Recent measured serum creatinine values: 05/14/2024 05:01 1.56 mg/dL 05/13/2024 05:29 1.53 mg/dL 05/12/2024 04:45 2.03 mg/dL Assessment: Analysis of the most recent level(s) using LOCK8 gives the following patient-specific pharmacokinetic parameters: CL: [...] Absence of Infection Signs and Symptoms 05/14/2024 045 by Pretty Ramirez RN Outcome: [...] controlled Afib (Xarelto, dilt, coreg), admitted to [facility] on 05/10/2024 with LE cellulitis 2/2 right foot trauma. Reason for intervention: Diet order question - what type of carb control diet does pt need? Nutrition Recommendations: Carb control level 3 diet Monitor po intake Monitor blood glucose levels Monitor weight trends I was able to discuss plan with provider Medicine Pager Red [phone] . Nutrition consult received regarding what type of carb control diet pt needs. Estimated nutrition needs based on ideal body weight of 89kg: Calories: 9477-1106 calories (20-25kcal/kg) Protein: 89-107g (1-1.2g/kg) Nutrition to [...] border dressing. (Melgisorb Ag 6x6 PS # [id number]) (Melgisorb Ag 4x4 PS # [id number]) Sacrum/ischium: open to air, utilize Z-guard if patient begins to have breakdown Supplies left at the bedside: 1 sheet of Melgisorb Ag, wound cleanser Wound Care will complete the consult at this time. If there are further issues please re-consult via eD-H. Discussed plan with: RN: Don Please contact Keeley Russell RN on eDH secure chat or the wound care team on pager [phone] with skin and wound care concerns or [...] surrogate would be surrogate decision maker per [place] surrogate decision making law. (Only good for 180 days) Son CONRADO Any patient receiving care in [place] must abide by [place] law. The hierarchy for surrogate decision making [...] (i) The agent with financial power of project officer or a conservator appointed in accordance with [...] Current DME: none Home Address listed as: [address] [place] [id number] Pt is not currently residing here. Current address is as below: [facility] [address] [place] [address] Social & Family Supports: All names listed below confirmed with patient as current and correct Extended Emergency Contact Information Primary Emergency Contact: Eddie Shanks Mobile Relation: Son/Fexqamgj-zs-boj Secondary Emergency Contact: Gifty Bucio [facility] Relation: Mother Current Care Provided by: [...] Pertinent/Service Specific Information: Health/Prescription Coverage: Primary Insurance: [employer] OOS Payor: [employer] OOS / Plan: [facility] [facility] NATIONAL OOS PPO / Product Type: *No Product type* / Secondary Insurance: N/A ; Prescription Coverage: Yes Preferred Pharmacy: [id number] - [place], [place] - [address] [place] [address] AT [facility] [address] [place] [id number] Primary Care Provider listed: None None Pt does have PCP in St Patient/Caregiver Goals of Treatment: Potential Needs for Transition of Care: none, home health care Agency Referrals: I have met with the patient to: discuss discharge planning needs. provide the [facility], Office of Care Management letter from the Footwear Machinery Instructor pertaining to rehab referrals. provide a letter describing our affiliations within the [facility] and educate about their right to choose where referrals are sent. provide a list of Home Health Agencies / Durable Medical Equipment vendors which serve their preferred geographic area. provided patient with [facility] Star Quality Rating handout. They have requested referrals to: [facility] [address] [place] [address] Note routed to a Software Quality Assurance Engineer who will communicate referrals to facilities and [...] wait list for housing (an apartment) in [place], [place]; ETA for move-in is 4-8weeks. He does not feel that his local family members would be able to house him in the interim andexpresses that he is comfortable in his camper, which has amenities. He is fully independent at baseline but has used [facility] in the past; a referral will be [...] Clinical Pharmacist Note - VancFD Jossy Shanks [id number] 1955 Jossy Shanks is a 69 y.o. [...] Alternately, during off-hours (9p-7a) you may call [phone] to contact a pharmacist. Rodriguez Sinclair RPH [...] intact shoulder abduction, elbow flexion/extension, wrist flexion/extension, team psychologist, EPL, AIN, IO Brisk capillary refill distally [...] intact shoulder abduction, elbow flexion/extension, wrist flexion/extension, team psychologist, EPL, AIN, IO Brisk capillary refill distally [...] changes develop in his course. Please page [phone] following completion of requestedimaging and studies. - Activity: no restrictions at this time - DVT prophylaxis: per primary; recommend lovenox 30 mg BID - Antibiotics: per ID - Imaging / studies needed: MRI wwo contrast, ABIs, ESR, CRP Tyrone Rehman MD Orthopaedic Surgery, [phone] documented in this encounter Plan of Treatment Scheduled Referrals Name Type Priority Associated Diagnoses [...] EDT Upper Gi Endoscopy, W/Dir Submuc Inj ([id number]) 05/22/2024 4:39 PM EDT ? melena Upper Gi Endoscopy, Ctrl Bleed ([id number]) 05/22/2024 4:39 PM EDT ? melena Upper GI Endoscopy, Diagnostic ([id number]) 05/22/2024 4:39 PM EDT ? melena UPPER [...] 05/14/2024 11:32 AM EDT Amputation Metatarsal+Toe, Single ([id number]) 05/14/2024 10:37 AM EDT right second toe [...] - 199 mg/dL 05/23/2024 12:32 PM EDT [facility] Comment:Supplemental ranges: <140 mg/dL before meals <180 mg/dL all other times of the day. Blood CAPILLARY BLOOD / Unknown 05/23/2024 12:32 PM EDT 05/23/2024 12:32 PM EDT Saba Spears MD POINT OF CARE TEST ORDERABLES Performing Organization Address City/State/[facility] Co de Phone Number [facility] [place] [address] * (ABNORMAL) Basic Metabolic Panel (05/23/2024 9:46 AM EDT) Glucose 142 65 - 199 mg/dL 05/23/2024 11:27 AM EDT [facility] Comment:Glucose Concentratio n >=200 mg/dL plus symptoms is consistent with Diabetes Mellitus. Blood Urea Nitrogen 83(H) 10 - 20 mg/dL 05/23/2024 11:27 AM EDT [facility] Creatinine 2.64(H) 0.80 - 1.50 mg/dL 05/23/2024 11:27 AM EDT [facility] Sodium 140 135 - 145 mMol/L 05/23/2024 11:27 AM EDT [facility] Potassium 5.2(H) 3.5 [...] EDT Saba Spears MD CHEMISTRY ORDERABLE S [facility] [place] [address] * (ABNORMAL) CBC (with Diff) (05/23/2024 9:46 AM EDT) White Blood Cell 12.66(H) 4.00 - 9.50 x10(3)/mc L 05/23/2024 10:52 AM [facility] Red Blood Cell 2.56(L) 4.58 - 5.54 x10(6)/mc L 05/23/2024 10:52 AM [facility] Hemoglobin 7.7(L) 13.7 - 16.5 [...] AM [facility] Neutrophil Absolute (ANC) - Automated 10.34(H) 1.70 - 6.10 x10(3)/mc L 05/23/2024 10:52 AM EDT [facility] Lymph % 5.1 % 05/23/2024 10:52 AM EDT [facility] Lymph Absolute 0.64(L) 0.90 - 3.20 x10(3)/mc L 05/23/2024 10:52 AM EDT [facility] Monocyte % 10.7 % 05/23/2024 10:52 AM EDT [facility] Monocyte Absolute 1.35(H) 0.30 - 0.90 x10(3)/mc L 05/23/2024 10:52 AM EDT [facility] Eos % 1.7 % 05/23/2024 10:52 AM EDT [facility] Eos Absolute 0.22 0.00 - 0.40 x10(3)/mc L 05/23/2024 10:52 AM EDT [facility] Basophil % 0.3 % 05/23/2024 10:52 AM EDT [facility] Baso Absolute 0.04 0.00 - 0.10 x10(3)/mc L 05/23/2024 10:52 AM EDT [facility] Immature Gran % 0.6 % 10:52 AM EDT [facility] Immature Gran Absolute 0.07(H) 0.00 - 0.04 x10(3)/mc L 05/23/2024 10:52 AM EDT [facility] Blood VENOUS BLOOD SPECIMEN / Unknown IP Care Team Draw / Unknown 05/23/2024 9:46 AM EDT 05/23/2024 10:01 AM EDT Saba Spears MD HEMATOLOGY ORDERABL ES [facility] [address] * POC, GLUCOSE (05/23/2024 7:44 AM EDT) Glucometer, POC 127 65 - 199 mg/dL 05/23/2024 7:44 AM EDT [facility] Comment:Supplemental ranges: <140 mg/dL before meals <180 mg/dL all other times of the day. Blood CAPILLARY BLOOD / Unknown 05/23/2024 7:44 AM EDT 05/23/2024 7:45 AM EDT Saba Spears MD POINT OF CARE TEST ORDERABLES Performing Organization Address City/[facility] Co de Phone Number [facility] [address] * Prepare RBC (05/23/2024 3:49 AM EDT) Status Information Transfused [facility] Product Identification RBC [facility] Unit Number [id number] [facility] Product Code [id number] [facility] Unit Blood Type OPOS [facility] Specimen Expiration Date [id number] [facility] Volulme [address] [facility] Issue Date / Time [id number] [facility] Blood 05/22/2024 12: 42 PM EDT Saba Spears MD BLOOD BANK PRODUCT ORDERABLES Performing Organization Address [facility] Co de Phone Number [facility] [place] [place] [address] * POC, GLUCOSE (05/23/2024 3:49 AM EDT) Glucometer, POC 152 65 - 199 mg/dL 05/23/2024 3:49 AM EDT [facility] Comment:Supplemental ranges: <140 mg/dL before meals <180 mg/dL all other times of the day. Blood CAPILLARY BLOOD / Unknown 05/23/2024 3:49 AM EDT 05/23/2024 3:49 AM EDT Saba Spears MD POINT OF CARE TEST ORDERABLES Performing Organization Address City/[facility]/ZIP Co de Phone Number [facility] [place] [address] * POC, GLUCOSE (05/23/2024 1:26 AM EDT) Glucometer, POC 138 65 - 199 mg/dL 05/23/2024 1:26 AM EDT [facility] Comment:Supplemental ranges: <140 mg/dL before meals <180 mg/dL all other times of the day. Blood CAPILLARY BLOOD / Unknown 05/23/2024 1:26 AM EDT 05/23/2024 1:26 AM EDT Saba Separs MD POINT OF CARE TEST ORDERABLES Performing Organization Address [facility] Co de Phone Number [facility] [place] [address] * (ABNORMAL) Scan, Peripheral Blood (05/23/2024 1:19 AM EDT) [facility] RBC Morphology Abnormal 05/23/2024 3:44 AM EDT [facility] Platelet Estimate Increased(A) Normal 05/23/2024 3:44 AM EDT [facility] Ovalocytes 1-5 /HPF 05/23/2024 3:44 AM EDT [facility] Sofía cells 1-5 /HPF 05/23/2024 3:44 AM EDT [facility] Blood VENOUS BLOOD SPECIMEN / Unknown IP Care Team Draw / Unknown 05/23/2024 1:19 AM EDT 05/23/2024 2:05 AM EDT Mary De La Fuente MD HEMATOLOGY ORDERAB LES Performing Organization Address City/[facility]/ZIP Co de Phone Number [facility] [address] * Magnesium (05/23/2024 1:19 AM EDT) Magnesium 0.86 0.69 - 1.07 mMol/L 05/23/2024 2:40 AM EDT [facility] Blood VENOUS BLOOD SPECIMEN / Unknown IP Care Team Draw / Unknown 05/23/2024 1:19 AM EDT 05/23/2024 2:05 AM EDT Mary De La Fuente MD CHEMISTRY ORDERABL ES Performing Organization Address City/[facility]/ZIP Co de Phone Number [facility] [place] [address] * (ABNORMAL) Phosphorus (05/23/2024 1:19 AM EDT) Phosphorus 5.8(H) 2.5 - 4.5 mg/dL 05/23/2024 2:40 AM EDT [facility] Blood VENOUS BLOOD SPECIMEN / Unknown IP Care Team Draw / Unknown 05/23/2024 1:19 AM EDT 05/23/2024 2:05 AM EDT Mary De La Fuente MD CHEMISTRY ORDERABL ES Performing Organization Address City/[facility]/ZIP Co de Phone Number [facility] [place] [address] * (ABNORMAL) Basic Metabolic Panel (non-fasting) (05/23/2024 1:19 AM EDT) Glucose 158 65 - 199 mg/dL 05/23/2024 3:34 AM EDT [facility] Comment:Glucose Concentratio n >=200 mg/dL plus symptoms is consistent with Diabetes Mellitus. Blood Urea Nitrogen 85(H) 10 - 20 mg/dL 05/23/2024 3:34 AM EDT [facility] Creatinine 2.70(H) 0.80 - 1.50 mg/dL 05/23/2024 3:34 AM EDT [facility] Sodium 139 135 - 145 mMol/L 05/23/2024 3:34 AM EDT [facility] Potassium 4.9 3.5 - 5.0 mMol/L 05/23/2024 3:34 AM EDT [facility] Chloride 108(H) 98 - 107 mMol/L 05/23/2024 3:34 AM EDT [facility] Carbon Dioxide 20(L) 22 - 31 mMol/L 05/23/2024 3:34 AM EDT [facility] Anion Gap 11 5 - 15 mMol/L 05/23/2024 3:34 AM EDT [facility] Calcium 9.1 8.5 - 10.5 mg/dL 05/23/2024 3:34 AM EDT [facility] Est Glomerular Filtration [...] Foundation Fasting Status 05/23/2024 3:34 AM T [facility] Blood VENOUS BLOOD SPECIMEN / Unknown IP Care Team Draw / Unknown 05/23/2024 1:19 AM EDT 05/23/2024 2:05 AM EDT Mary De La Fuente MD CHEMISTRY ORDERABL ES [facility] [place] [address] * (ABNORMAL) CBC (with Diff) (05/23/2024 1:19 AM EDT) White Blood Cell 12.66(H) 4.00 - 9.50 x10(3)/mc L 05/23/2024 3:44 AM EDT [facility] Red Blood Cell [...] a previously preliminary verified report. Neutrophil Absolute (ANC) - Automated 10.06(H) 1.70 - 6.10 x10(3)/mc L 05/23/2024 [...] - 0.10 x10(3)/mc L 05/23/2024 3:44 AM [facility] Comment:This is an appended report. These results have been appended to a previously preliminary verified report. Immature Gran % 0.5 % 3:44 AM EDT [facility] Comment:This is an appended report. These results have been appended to a previously preliminary verified report. Immature Gran Absolute 0.06(H) 0.00 - 0.04 x10(3)/mc L 05/23/2024 3:44 AM EDT [facility] Comment:This is an appended report. These results have been appended to a previously preliminary verified report. Blood VENOUS BLOOD SPECIMEN / Unknown IP Care Team Draw / Unknown 05/23/2024 1:19 AM EDT 05/23/2024 2:05 AM EDT Mary De La Fuente MD HEMATOLOGY ORDERAB LES Performing Organization Address City/[facility] Co de Phone Number [facility] [place] [address] * POC, GLUCOSE (05/22/2024 8:21 PM EDT) Glucometer, POC 152 65 - 199 mg/dL 05/22/2024 8:21 PM EDT [facility] Comment:Supplemental ranges: <140 mg/dL before meals <180 mg/dL all other times of the day. Blood CAPILLARY BLOOD / Unknown 05/22/2024 8:21 PM EDT 05/22/2024 8:21 PM EDT Saba Spears MD POINT OF CARE TEST ORDERABLES [facility] [place] [address] * POC, GLUCOSE (05/22/2024 6:20 PM EDT) Glucometer, POC 130 65 - 199 mg/dL 05/22/2024 6:20 PM EDT [facility] Comment:Supplemental ranges: <140 mg/dL before meals <180 mg/dL all other times of the day. Blood CAPILLARY BLOOD / Unknown 05/22/2024 6:20 PM EDT 05/22/2024 6:21 PM EDT Saba Spears MD POINT OF CARE TEST ORDERABLES [facility] [place] [address] * Transfuse RBC (05/22/2024 2:45 PM EDT) Saba Spears MD NURSING TREATMENT O RDERABLES - BLOOD ADMIN * UPPER GI ENDOSCOPY (05/22/2024 12:48 PM EDT) UPPER GI ENDOSCOPY [facility] Endoscopy ___ Procedure Date: 05/22/2024 12:48 PM ? Patient Name: Jossy Shanks ? N: [id number] ? Date of : 1955 ? Age: 69 ? Order #: [id number] ? Instrument Name: [id number] ? ___ Procedure: ? Upper GI endoscopy [...] (PATIENT HISTORY FOUND) (05/22/2024 11:18 AM EDT) [facility] Recheck Progress Complete 05/22/2024 1:[address] [facility] Blood VENOUS BLOOD SPECIMEN / Unknown IP Care Team Draw / Unknown 05/22/2024 11:18 AM EDT 05/22/2024 11:27 AM EDT Saba Spears MD BLOOD BANK LAB FADY [facility]O [facility] [place] [address] * Type and screen ([facility]/CGP/TARA) (05/22/2024 11:18 AM EDT) Pathologist [facility] ABOR Type O POSITIVE 05/22/2024 12:[address] [facility] PATIENT HISTORY Found 05/22/2024 12:[address] [facility] Expires at [id number] on: 05-22-2024 05/22/2024 12:[address] [facility] ANTIBODY SCREEN AUTOMATED Negative 05/22/2024 12:[address] [facility] T&S only valid at [facility] 05/22/2024 12:[address] [facility] Blood VENOUS BLOOD SPECIMEN / Unknown IP Care Team Draw / Unknown 05/22/2024 11:18 AM EDT 05/22/2024 11:[address] [facility] - 05/22/2024 12:31 PM EDT This Type and Screen result is only valid at the [facility] Saba Spears MD BLOOD BANK LAB ORDE RABLES [facility] [place] [address] * (ABNORMAL) Hemoglobin and Hematocrit, blood (05/22/2024 11:18 AM EDT) Hemoglobin 6.9(L) 13.7 - 16.5 g/dL 05/22/2024 12:02 PM EDT [facility] Hematocrit 21.4(L) 40.5 - 48.5 % 05/22/2024 12:02 PM EDT [facility] Blood VENOUS BLOOD SPECIMEN / Unknown IP Care Team Draw / Unknown 05/22/2024 11:18 AM EDT 05/22/2024 11:36 AM EDT Saba Spears MD HEMATOLOGY ORDERABL ES [facility] [place] [address] * POC, GLUCOSE (05/22/2024 11:14 AM EDT) Glucometer, POC 126 65 - 199 mg/dL 05/22/2024 11:17 AM EDT [facility] Comment:Supplemental ranges: <140 mg/dL before meals <180 mg/dL all other times of the day. Blood CAPILLARY BLOOD / Unknown 05/22/2024 11:14 AM EDT 05/22/2024 11:18 AM EDT Saba Spears MD POINT OF CARE TEST ORDERABLES [facility] [place] [address] * POC, GLUCOSE (05/22/2024 8:07 AM EDT) [facility] Signature Glucometer, POC 132 65 - 199 mg/dL 05/22/2024 8:08 AM EDT [facility] Comment:Supplemental ranges: <140 mg/dL before meals <180 mg/dL all other times of the day. Blood CAPILLARY BLOOD / Unknown 05/22/2024 8:07 AM EDT 05/22/2024 8:08 AM EDT Saba Spears MD POINT OF CARE TEST ORDERABLES [facility] [place] [address] * (ABNORMAL) Hepatic Function Panel (05/22/2024 5:18 AM EDT) [facility] Signature Albumin 2.6(L) 3.2 - 5.2 g/dL 05/22/2024 9:50 AM EDT [facility] Aspartate Aminotransferase 18 <=39 unit/L 05/22/2024 9:50 AM EDT [facility] Alanine Aminotransferase 42 0 - 55 unit/L 05/22/2024 9:50 AM EDT [facility] Alkaline Phosphatase 84 40 - 130 unit/L 05/22/2024 9:50 AM EDT [facility] Bilirubin, Total <0.2 <=1.3 mg/dL 05/22/2024 9:50 AM EDT [facility] Bilirubin, Direct <0.2 0.0 - 0.3 mg/dL 05/22/2024 9:50 AM EDT [facility] Protein, Total 6.0(L) 6.1 - 8.0 g/dL 05/22/2024 9:50 AM EDT [facility] Blood VENOUS BLOOD SPECIMEN / Unknown IP Care Team Draw / Unknown 05/22/2024 5:18 AM EDT 05/22/2024 5:45 AM EDT Saba Spears MD CHEMISTRY ORDERABLE S [facility] [place] [address] * Magnesium (05/22/2024 5:18 AM EDT) Magnesium 0.93 0.69 - 1.07 mMol/L 05/22/2024 6:16 AM EDT [facility] Blood VENOUS BLOOD SPECIMEN / Unknown IP Care Team Draw / Unknown 05/22/2024 5:18 AM EDT 05/22/2024 5:45 AM EDT Mary De La Fuente MD CHEMISTRY ORDERABL ES Performing Organization Address [facility] Co de Phone Number [facility] [address] * (ABNORMAL) Phosphorus (05/22/2024 5:18 AM EDT) Phosphorus 5.8(H) 2.5 - 4.5 mg/dL 05/22/2024 6:16 AM EDT [facility] Blood VENOUS BLOOD SPECIMEN / Unknown IP Care Team Draw / Unknown 05/22/2024 5:18 AM EDT 05/22/2024 5:45 AM EDT Mary De La Fuente MD CHEMISTRY ORDERABL ES Performing Organization Address City/[facility]/ZIP Co de Phone Number [facility] [place] [address] * (ABNORMAL) Basic Metabolic Panel (05/22/2024 5:18 AM EDT) Glucose 121 65 - 199 mg/dL 05/22/2024 6:16 AM [facility] Comment:Glucose Concentratio n >=200 mg/dL [...] Foundation Fasting Status No 05/22/2024 6:16 AM [facility] Blood VENOUS BLOOD SPECIMEN / Unknown IP Care Team Draw / Unknown 05/22/2024 5:18 AM EDT 05/22/2024 5:45 AM EDT Mary De La Fuente MD CHEMISTRY ORDERABL ES [facility] [place] [address] * (ABNORMAL) CBC (with Diff) (05/22/2024 5:18 AM EDT) White Blood Cell 14.70(H) 4.00 - 9.50 x10(3)/mc L 05/22/2024 5:52 AM EDT [facility] Red Blood Cell 2.37(L) 4.58 - 5.54 x10(6)/mc L 05/22/2024 5:52 AM EDT [facility] Hemoglobin 7.2(L) 13.7 - 16.5 g/dL 05/22/2024 5:52 AM [facility] Hematocrit 22.1(L) 40.5 - 48.5 % 05/22/2024 5:52 AM T [facility] Mean Cell Volume 93.2(H) 82.9 - 93.1 fL 05/22/2024 5:52 AM [facility] Mean Cell Hemoglobin 30.4 27.5 - 32.1 pg 05/22/2024 5:52 AM T [facility] Mean Cell Hemoglobin Concentration 32.6 32.0 - 35.7 g/dL 05/22/2024 5:52 AM EDT [facility] Platelet 366(H) [...] AM [facility] Neutrophil Absolute (ANC) - Automated 12.22(H) 1.70 - 6.10 x10(3)/mc L 05/22/2024 [...] - 0.10 x10(3)/mc L 05/22/2024 5:52 AM [facility] Immature Gran % 0.6 % 5:52 AM [facility] Immature Gran Absolute 0.09(H) 0.00 - 0.04 x10(3)/mc L 05/22/2024 5:52 AM EDT [facility] Blood VENOUS BLOOD SPECIMEN / Unknown IP Care Team Draw / Unknown 05/22/2024 5:18 AM EDT 05/22/2024 5:45 AM EDT Mary De La Fuente MD HEMATOLOGY ORDERAB LES Performing Organization Address City/[facility] Co de Phone Number [facility] [place] [address] * POC, GLUCOSE (05/22/2024 3:50 AM EDT) Glucometer, POC 140 65 - 199 mg/dL 05/22/2024 3:50 AM EDT [facility] Comment:Supplemental ranges: <140 mg/dL before meals <180 mg/dL all other times of the day. Blood CAPILLARY BLOOD / Unknown 05/22/2024 3:50 AM EDT 05/22/2024 3:50 AM EDT Saba Spears MD POINT OF CARE TEST ORDERABLES Performing Organization Address [facility] Co de Phone Number [facility] [place] [address] * Scan Doc: Lab (05/22/2024 12:00 AM EDT) Narrative 05/22/2024 12:00 AM EDT Ordered by an unspecified provider. Scanning Provider MEDIA MGR SCAN EXT O RDR/RSLT * POC, GLUCOSE (05/21/2024 11:28 PM EDT) Glucometer, POC 174 65 - 199 mg/dL 05/21/2024 11:28 PM EDT [facility] Comment:Supplemental ranges: <140 mg/dL before meals <180 mg/dL all other times of the day. Blood CAPILLARY BLOOD / Unknown 05/21/2024 11:28 PM EDT 05/21/2024 11:28 PM EDT Saba Spears MD POINT OF CARE TEST ORDERABLES Performing Organization Address City/[facility]/ZIP Co de Phone Number [facility] [address] * POC, GLUCOSE (05/21/2024 7:49 PM EDT) Glucometer, POC 161 65 - 199 mg/dL 05/21/2024 7:49 PM EDT [facility] Comment:Supplemental ranges: <140 mg/dL before meals <180 mg/dL all other times of the day. Blood CAPILLARY BLOOD / Unknown 05/21/2024 7:49 PM EDT 05/21/2024 7:49 PM EDT Saba Spears MD POINT OF CARE TEST ORDERABLES Performing Organization Address [facility] Co de Phone Number [facility] [address] * POC, GLUCOSE (05/21/2024 5:18 PM EDT) Glucometer, POC 152 65 - 199 mg/dL 05/21/2024 5:18 PM EDT [facility] Comment:Supplemental ranges: <140 mg/dL before meals <180 mg/dL all other times of the day. Blood CAPILLARY BLOOD / Unknown 05/21/2024 5:18 PM EDT 05/21/2024 5:18 PM EDT Saba Spears MD POINT OF CARE TEST ORDERABLES Performing Organization Address City/[facility]/ZIP Co de Phone Number [facility] [place] [address] * (ABNORMAL) Hemogram (05/21/2024 3:00 PM EDT) White Blood Cell 14.25(H) 4.00 - 9.50 x10(3)/mc L 05/21/2024 3:41 PM EDT [facility] Red Blood Cell 2.61(L) 4.58 - 5.54 x10(6)/mc L 05/21/2024 3:41 PM T [facility] Hemoglobin 7.8(L) 13.7 [...] - 0.00 x10(3)/mc L 05/21/2024 3:41 PM [facility] Blood VENOUS BLOOD SPECIMEN / Unknown IP Care Team Draw / Unknown 05/21/2024 3:00 PM EDT 05/21/2024 3:36 PM EDT Saba A Seema MD HEMATOLOGY ORDERABL ES Performing Organization Address City/[facility]/ZIP Co de Phone Number [facility] [place] [address] * POC, GLUCOSE (05/21/2024 12:39 PM EDT) Glucometer, POC 144 65 - 199 mg/dL 05/21/2024 12:39 PM EDT [facility] Comment:Supplemental ranges: <140 mg/dL before meals <180 mg/dL all other times of the day. Blood CAPILLARY BLOOD / Unknown 05/21/2024 12:39 PM EDT 05/21/2024 12:39 PM EDT Saba Spears MD POINT OF CARE TEST ORDERABLES Performing Organization Address [facility] Co de Phone Number [facility] [place] [address] * IR Tunneled Central Venous Access Non-Dialysis [...] and osteomyelitis s/p 2ng toe amputation requiring parts counterman IV antibiotic administration who presents to Interventional [...] guidance and a 4Fr sheath placed. ??[address] injection compatible single lumen catheter was [...] the IR Nurse. ? Saba Spears MD [facility] IR ORDERABLES * POC, GLUCOSE (05/21/2024 9:12 AM EDT) [facility] Signature Glucometer, POC 144 65 - 199 mg/dL 05/21/2024 9:12 AM EDT [facility] Comment:Supplemental ranges: <140 mg/dL before meals <180 mg/dL all other times of the day. Blood CAPILLARY BLOOD / Unknown 05/21/2024 9:12 AM EDT 05/21/2024 9:12 AM EDT Saba Spears MD POINT OF CARE TEST ORDERABLES [facility] [place] [address] * POC, GLUCOSE (05/21/2024 8:32 AM EDT) Glucometer, POC 135 65 - 199 mg/dL 05/21/2024 8:32 AM EDT [facility] Comment:Supplemental ranges: <140 mg/dL before meals <180 mg/dL all other times of the day. Blood CAPILLARY BLOOD / Unknown 05/21/2024 8:32 AM EDT 05/21/2024 8:32 AM EDT Saba Spears MD POINT OF CARE TEST ORDERABLES [facility] [place] [address] * (ABNORMAL) Hemogram (05/21/2024 8:27 AM EDT) White Blood Cell 15.77(H) 4.00 - 9.50 x10(3)/mc L 05/21/2024 8:54 AM EDT [facility] Red Blood Cell 2.47(L) 4.58 - 5.54 x10(6)/mc L 05/21/2024 8:54 AM EDT [facility] Hemoglobin 7.5(L) 13.7 - 16.5 g/dL 05/21/2024 8:54 AM [facility] Hematocrit 23.0(L) 40.5 - 48.5 % 05/21/2024 8:54 AM EDT [facility] Mean Cell Volume 93.1 82.9 - 93.1 fL 05/21/2024 8:54 AM [facility] Mean Cell Hemoglobin 30.4 27.5 - 32.1 pg 05/21/2024 8:54 AM T [facility] Mean Cell Hemoglobin Concentration 32.6 32.0 - 35.7 g/dL 05/21/2024 8:54 AM [facility] Platelet 398(H) 145 - 357 x10(3)/mc L 05/21/2024 8:54 AM EDT [facility] Mean Platelet Volume 10.8 7.6 - 12.9 fL 05/21/2024 8:54 AM EDT [facility] RDW Standard Deviation 54.6(H) 36.0 - 45.0 fL 05/21/2024 8:54 AM EDT [facility] RDW coefficient of variation 16.1(H) 11.4 - 13.8 % 05/21/2024 8:54 AM EDT [facility] NRBC% auto 0.0 % 05/21/2024 8:54 AM EDT [facility] NRBC Absolute 0.00 0.00 - 0.00 x10(3)/mc L 05/21/2024 8:54 AM EDT [facility] Blood VENOUS BLOOD SPECIMEN / Unknown IP Care Team Draw / Unknown 05/21/2024 8:27 AM EDT 05/21/2024 8:42 AM EDT Saba Spears MD HEMATOLOGY ORDERABL ES Performing Organization Address City/[facility]/ZIP Co de Phone Number [facility] [place] [address] * (ABNORMAL) CRP, acute inflammation (05/21/2024 4:58 AM EDT) C-Reactive Protein 14.1(H) <=4.9 mg/L 05/21/2024 10:05 AM EDT [facility] Blood VENOUS BLOOD SPECIMEN / Unknown IP Care Team Draw / Unknown 05/21/2024 4:58 AM EDT 05/21/2024 5:17 AM EDT Saba Spears MD CHEMISTRY ORDERABLE S [facility] [place] [address] * Magnesium (05/21/2024 4:58 AM EDT) Magnesium 0.99 0.69 - 1.07 mMol/L 05/21/2024 5:51 AM EDT [facility] Blood VENOUS BLOOD SPECIMEN / Unknown IP Care Team Draw / Unknown 05/21/2024 4:58 AM EDT 05/21/2024 5:17 AM EDT Mary De La Fuente MD CHEMISTRY ORDERABL ES Performing Organization Address City/[facility]/ZIP Co de Phone Number [facility] [place] [address] * (ABNORMAL) Phosphorus (05/21/2024 4:58 AM EDT) Phosphorus 6.2(H) 2.5 - 4.5 mg/dL 05/21/2024 5:51 AM EDT [facility] Blood VENOUS BLOOD SPECIMEN / Unknown IP Care Team Draw / Unknown 05/21/2024 4:58 AM EDT 05/21/2024 5:17 AM EDT Mary De La Fuente MD CHEMISTRY ORDERABL ES Performing Organization Address City/[facility]/ZIP Co de Phone Number [facility] [place] [address] * (ABNORMAL) Basic Metabolic Panel (05/21/2024 4:58 AM EDT) Glucose 151 65 - 199 mg/dL 05/21/2024 5:51 AM EDT [facility] Comment:Glucose Concentratio n >=200 mg/dL plus symptoms is consistent with Diabetes Mellitus. Blood Urea Nitrogen 110(H) 10 - 20 mg/dL 05/21/2024 5:51 AM EDT [facility] Creatinine 3.04(H) 0.80 - 1.50 mg/dL 05/21/2024 5:51 AM EDT [facility] Sodium 138 135 - 145 mMol/L 05/21/2024 5:51 AM EDT [facility] Potassium 5.1(H) 3.5 - 5.0 mMol/L 05/21/2024 5:51 AM EDT [facility] Chloride 111(H) 98 - 107 mMol/L 05/21/2024 5:51 AM [facility] Carbon Dioxide [...] Foundation Fasting Status No 05/21/2024 5:51 AM [facility] Blood VENOUS BLOOD SPECIMEN / Unknown IP Care Team Draw / Unknown 05/21/2024 4:58 AM EDT 05/21/2024 5:17 AM EDT Mary De La Fuente MD CHEMISTRY ORDERABL ES [facility] [place] [address] * (ABNORMAL) CBC (with Diff) (05/21/2024 4:58 AM EDT) White Blood Cell 14.49(H) 4.00 - 9.50 x10(3)/mc L 05/21/2024 5:28 AM EDT [facility] Red Blood Cell [...] - 0.00 x10(3)/mc L 05/21/2024 5:28 AM [facility] Neutrophil % 81.6 % 05/21/2024 5:28 AM [facility] Neutrophil Absolute (ANC) - Automated 11.83(H) 1.70 - 6.10 x10(3)/mc L 05/21/2024 5:28 AM EDT [facility] Lymph % 6.1 % 05/21/2024 5:28 AM EDT [facility] Lymph Absolute 0.89(L) 0.90 - 3.20 x10(3)/mc L 05/21/2024 5:28 AM EDT [facility] Monocyte % 9.4 % 05/21/2024 5:28 AM EDT [facility] Monocyte Absolute 1.36(H) 0.30 - 0.90 x10(3)/mc L 05/21/2024 5:28 AM EDT [facility] Eos % 2.1 % 05/21/2024 5:28 AM EDT [facility] Eos Absolute 0.30 0.00 - 0.40 x10(3)/mc L 05/21/2024 5:28 AM EDT [facility] Basophil % 0.2 % 05/21/2024 5:28 AM EDT [facility] Baso Absolute 0.03 0.00 - 0.10 x10(3)/mc L 05/21/2024 5:28 AM EDT [facility] Immature Gran % 0.6 % 5:28 AM EDT [facility] Immature Gran Absolute 0.08(H) 0.00 - 0.04 x10(3)/mc L 05/21/2024 5:28 AM EDT [facility] Blood VENOUS BLOOD SPECIMEN / Unknown IP Care Team Draw / Unknown 05/21/2024 4:58 AM EDT 05/21/2024 5:17 AM EDT Mary De La Fuente MD HEMATOLOGY ORDERAB LES [facility] [place] [address] * POC, GLUCOSE (05/21/2024 3:45 AM EDT) [facility] Signature Glucometer, POC 155 65 - 199 mg/dL 05/21/2024 3:45 AM EDT [facility] Comment:Supplemental ranges: <140 mg/dL before meals <180 mg/dL all other times of the day. Blood CAPILLARY BLOOD / Unknown 05/21/2024 3:45 AM EDT 05/21/2024 3:46 AM EDT Saba Spears MD POINT OF CARE TEST ORDERABLES Performing Organization Address City/[facility]/ZIP Co de Phone Number [facility] [place] [address] * POC, GLUCOSE (05/20/2024 11:44 PM EDT) Glucometer, POC 132 65 - 199 mg/dL 05/20/2024 11:44 PM EDT [facility] Comment:Supplemental ranges: <140 mg/dL before meals <180 mg/dL all other times of the day. Blood CAPILLARY BLOOD / Unknown 05/20/2024 11:44 PM EDT 05/20/2024 11:44 PM EDT Saba Spears MD POINT OF CARE TEST ORDERABLES Performing Organization Address City/[facility] Co de Phone Number [facility] [place] [address] * POC, GLUCOSE (05/20/2024 7:24 PM EDT) Glucometer, POC 166 65 - 199 mg/dL 05/20/2024 7:24 PM EDT [facility] Comment:Supplemental ranges: <140 mg/dL before meals <180 mg/dL all other times of the day. Blood CAPILLARY BLOOD / Unknown 05/20/2024 7:24 PM EDT 05/20/2024 7:25 PM EDT Saba Spears MD POINT OF CARE TEST ORDERABLES Performing Organization Address City/[facility]/ZIP Co de Phone Number [facility] [place] [address] * POC, GLUCOSE (05/20/2024 4:24 PM EDT) Glucometer, POC 170 65 - 199 mg/dL 05/20/2024 4:24 PM EDT [facility] Comment:Supplemental ranges: <140 mg/dL before meals <180 mg/dL all other times of the day. Blood CAPILLARY BLOOD / Unknown 05/20/2024 4:24 PM EDT 05/20/2024 4:24 PM EDT Saba Spears MD POINT OF CARE TEST ORDERABLES [facility] [place] [address] * (ABNORMAL) Hemogram (05/20/2024 12:35 PM EDT) White Blood Cell 14.66(H) 4.00 - 9.50 x10(3)/mc L 05/20/2024 12:50 PM EDT [facility] Red Blood Cell 2.81(L) 4.58 - 5.54 x10(6)/mc L 05/20/2024 12:50 PM EDT [facility] Hemoglobin 8.4(L) 13.7 - 16.5 g/dL 05/20/2024 12:50 PM EDT [facility] Hematocrit 26.2(L) 40.5 - 48.5 % 05/20/2024 12:50 PM EDT [facility] Mean Cell Volume 93.2(H) 82.9 - 93.1 fL 05/20/2024 12:50 PM EDT [facility] Mean Cell Hemoglobin 29.9 27.5 - 32.1 pg 05/20/2024 12:50 PM EDT [facility] Mean Cell Hemoglobin Concentration 32.1 32.0 - 35.7 g/dL 05/20/2024 12:50 PM EDT [facility] Platelet 416(H) 145 - 357 x10(3)/mc L 05/20/2024 12:50 PM EDT [facility] Mean Platelet Volume 10.4 7.6 - 12.9 fL 05/20/2024 12:50 PM EDT [facility] RDW Standard Deviation 52.9(H) 36.0 - 45.0 fL 05/20/2024 12:50 PM EDT [facility] RDW coefficient of variation 15.6(H) 11.4 - 13.8 % 05/20/2024 12:50 PM EDT [facility] NRBC% auto 0.0 % 05/20/2024 12:50 PM EDT [facility] NRBC Absolute 0.00 0.00 - 0.00 x10(3)/mc L 05/20/2024 12:50 PM EDT [facility] Blood VENOUS BLOOD SPECIMEN / Unknown IP Care Team Draw / Unknown 05/20/2024 12:35 PM EDT 05/20/2024 12:43 PM EDT Saba Spears MD HEMATOLOGY ORDERABL ES [facility] [place] [address] * POC, GLUCOSE (05/20/2024 11:52 AM EDT) [facility] Signature Glucometer, POC 176 65 - 199 mg/dL 05/20/2024 11:52 AM EDT [facility] Comment:Supplemental ranges: <140 mg/dL before meals <180 mg/dL all other times of the day. Blood CAPILLARY BLOOD / Unknown 05/20/2024 11:52 AM EDT 05/20/2024 11:52 AM EDT Saba Spears MD POINT OF CARE TEST ORDERABLES [facility] [place] [address] * US Retroperitoneal Complete (05/20/2024 10:36 AM EDT) Pathologist [facility] WORKSTATION ID [id number] RAD Anatomical Region Laterality Modality Abdomen Ultrasound [...] who have questions, please contact the health adult care provider that requested your imaging first. ?Teofilo Ruiz, Staff Physician Electronically Signed Final Report ?? 05/20/2024 11:36 am Narrative 05/20/2024 11:37 AM EDT Renal ? (Signed Final 05/20/2024 11:36 am) PATIENT INFO: ID #: ? [id number] ?: ??[birth year] (69 yrs)(M) Name: ? JOSSY Spivey KNIGHTS ? Visit Date: 05/20/2024 10:34 am PERFORMED BY: Attending: ?Joseph SOTOMAYOR, Teofilo Flores Resident: ? Kuldeep SOTOMAYOR, Trinidad Wright Performed By: ? Lulu Shin RDMS Referred By: ?SABA Goodson [facility] Location: ? [place] SERVICE(S) PROVIDED: URETRO - Retroperitoneal Complete - [id number] ? [id number] INDICATIONS: CKD, increase BUN TECHNIQUE/SCAN QUALITY: Scan [...] 05/20/2024 11:36 am) PATIENT INFO: ID #: [id number] : 53 (69 yrs)(M) Name: JOSSY SHANKS Visit Date: 05/20/2024 10:34 am PERFORMED BY: Attending: Teofilo Ruiz MD Resident: Trinidad Light MD Performed By: Lulu Shin RDMS Referred By: SABA SPEARS Location: [place] SERVICE(S) PROVIDED: URETRO - Retroperitoneal Complete - [id number] INDICATIONS: CKD, increase BUN TECHNIQUE/SCAN QUALITY: Scan [...] who have questions, please contact the health adult care provider that requested your imaging first. Teofilo Ruiz, Staff Physician Electronically Signed Final Report 05/20/2024 11:36 am Saba Spears MD IMG US GEN ORDERABL ES * POC, GLUCOSE (05/20/2024 8:03 AM EDT) [facility] Glucometer, POC 180 65 - 199 mg/dL 05/20/2024 8:03 AM EDT [facility] Comment:Supplemental ranges: <140 mg/dL before meals <180 mg/dL all other times of the day. Blood CAPILLARY BLOOD / Unknown 05/20/2024 8:03 AM EDT 05/20/2024 8:03 AM EDT Saba Spears MD POINT OF CARE TEST ORDERABLES Performing Organization Address City/[facility]/ZIP Co de Phone Number [facility] [place] [address] * Magnesium (05/20/2024 4:27 AM EDT) Magnesium 0.99 0.69 - 1.07 mMol/L 05/20/2024 5:27 AM EDT [facility] Blood VENOUS BLOOD SPECIMEN / Unknown IP Care Team Draw / Unknown 05/20/2024 4:27 AM EDT 05/20/2024 4:52 AM EDT Mary De La Fuente MD CHEMISTRY ORDERABL ES Performing Organization Address [facility] Co de Phone Number [facility] [place] [address] * (ABNORMAL) Phosphorus (05/20/2024 4:27 AM EDT) Phosphorus 5.1(H) 2.5 - 4.5 mg/dL 05/20/2024 5:27 AM EDT [facility] Blood VENOUS BLOOD SPECIMEN / Unknown IP Care Team Draw / Unknown 05/20/2024 4:27 AM EDT 05/20/2024 4:52 AM EDT Mary De La Fuente MD CHEMISTRY ORDERABL ES Performing Organization Address [facility] Co de Phone Number [facility] [place] [address] * (ABNORMAL) Basic Metabolic Panel (non-fasting) (05/20/2024 4:27 AM EDT) Glucose 173 65 - 199 mg/dL 05/20/2024 6:27 AM [facility] Comment:Glucose Concentratio n >=200 mg/dL plus symptoms is consistent with Diabetes Mellitus. Blood Urea Nitrogen 121(H) 10 - 20 mg/dL 05/20/2024 6:27 AM [facility] Creatinine 2.78(H) 0.80 - 1.50 [...] Foundation Fasting Status No 05/20/2024 6:27 AM [facility] Blood VENOUS BLOOD SPECIMEN / Unknown IP Care Team Draw / Unknown 05/20/2024 4:27 AM EDT 05/20/2024 4:52 AM EDT Mary De La Fuente MD CHEMISTRY ORDERABL ES [facility] [place] [address] * (ABNORMAL) CBC (with Diff) (05/20/2024 4:27 AM EDT) White Blood Cell 15.20(H) 4.00 - 9.50 x10(3)/mc L 05/20/2024 5:32 AM EDT [facility] Red Blood Cell 2.69(L) 4.58 - 5.54 x10(6)/mc L 05/20/2024 5:32 AM EDT [facility] Hemoglobin 7.9(L) 13.7 - 16.5 g/dL 05/20/2024 5:32 AM EDT [facility] Hematocrit 25.5(L) 40.5 - 48.5 % 05/20/2024 5:32 AM EDT [facility] Mean Cell Volume 94.8(H) 82.9 - 93.1 fL 05/20/2024 5:32 AM T [facility] Mean Cell Hemoglobin 29.4 27.5 - 32.1 pg 05/20/2024 5:32 AM EDT [facility] Mean Cell Hemoglobin Concentration 31.0(L) 32.0 - 35.7 g/dL 05/20/2024 5:32 AM EDT [facility] Platelet 403(H) 145 - 357 x10(3)/mc L 05/20/2024 5:32 AM EDT [facility] Mean Platelet Volume 10.7 7.6 - 12.9 fL 05/20/2024 5:32 AM EDT [facility] RDW Standard Deviation 54.7(H) 36.0 - 45.0 fL 05/20/2024 5:32 AM EDT [facility] RDW coefficient of variation 15.8(H) 11.4 - 13.8 % 05/20/2024 5:32 AM [facility] NRBC% auto 0.0 % 05/20/2024 5:32 AM [facility] NRBC Absolute 0.00 0.00 - 0.00 x10(3)/mc L 05/20/2024 5:32 AM [facility] Neutrophil % 82.1 % 05/20/2024 5:32 AM [facility] Neutrophil Absolute (ANC) - Automated 12.49(H) 1.70 - 6.10 x10(3)/mc L 05/20/2024 [...] - 0.10 x10(3)/mc L 05/20/2024 5:32 AM [facility] Immature Gran % 0.6 % 5:32 AM [facility] Immature Gran Absolute 0.09(H) 0.00 - 0.04 x10(3)/mc L 05/20/2024 5:32 AM EDT [facility] Blood VENOUS BLOOD SPECIMEN / Unknown IP Care Team Draw / Unknown 05/20/2024 4:27 AM EDT 05/20/2024 4:52 AM EDT Mary De La Fuente MD HEMATOLOGY ORDERAB LES [facility] [place] [address] * POC, GLUCOSE (05/20/2024 3:11 AM EDT) Glucometer, POC 163 65 - 199 mg/dL 05/20/2024 3:12 AM EDT [facility] Comment:Supplemental ranges: <140 mg/dL before meals <180 mg/dL all other times of the day. Blood CAPILLARY BLOOD / Unknown 05/20/2024 3:11 AM EDT 05/20/2024 3:12 AM EDT Saba Spears MD POINT OF CARE TEST ORDERABLES Performing Organization Address City/[facility]/ZIP Co de Phone Number [facility] [address] * POC, GLUCOSE (05/19/2024 11:07 PM EDT) Glucometer, POC 136 65 - 199 mg/dL 05/19/2024 11:07 PM EDT [facility] Comment:Supplemental ranges: <140 mg/dL before meals <180 mg/dL all other times of the day. Blood CAPILLARY BLOOD / Unknown 05/19/2024 11:07 PM EDT 05/19/2024 11:07 PM EDT Saba Spears MD POINT OF CARE TEST ORDERABLES [facility] [place] [address] * POC, GLUCOSE (05/19/2024 8:20 PM EDT) Glucometer, POC 150 65 - 199 mg/dL 05/19/2024 8:20 PM EDT [facility] Comment:Supplemental ranges: <140 mg/dL before meals <180 mg/dL all other times of the day. Blood CAPILLARY BLOOD / Unknown 05/19/2024 8:20 PM EDT 05/19/2024 8:21 PM EDT Saba Spears MD POINT OF CARE TEST ORDERABLES [facility] [place] [address] * (ABNORMAL) Iron and TIBC (05/19/2024 5:09 PM EDT) [facility] Iron 58 45 - 160 mcg/dL 05/19/2024 6:56 PM EDT [facility] Unsaturated Iron Binding Capacity 143 110 - 370 mcg/dL 05/19/2024 6:56 PM EDT [facility] TIBC 201(L) 250 - 450 mcg/dL 05/19/2024 6:56 PM EDT [facility] Iron Saturation 29 20 - 50 % 6:56 PM EDT [facility] Blood VENOUS BLOOD SPECIMEN / Unknown IP Care Team Draw / Unknown 05/19/2024 5:09 PM EDT 05/19/2024 5:43 PM EDT Saba Spears MD CHEMISTRY ORDERABLE S [facility] [place] [address] * PTH (05/19/2024 5:09 PM EDT) [facility] Parathyroid Hormone 27 15 - 65 pg/mL 05/19/2024 6:15 PM EDT [facility] Blood VENOUS BLOOD SPECIMEN / Unknown IP Care Team Draw / Unknown 05/19/2024 5:09 PM EDT 05/19/2024 5:43 PM EDT Saba Spears MD CHEMISTRY ORDERABLE S Performing Organization Address City/[facility]/ZIP Co de Phone Number [facility] [address] * Ferritin (05/19/2024 5:08 PM EDT) Ferritin 191 31 - 409 ng/ml 05/19/2024 6:24 PM EDT [facility] Blood VENOUS BLOOD SPECIMEN / Unknown IP Care Team Draw / Unknown 05/19/2024 5:08 PM EDT 05/19/2024 5:43 PM EDT Saba Spears MD CHEMISTRY ORDERABLE S Performing Organization Address City/[facility]/ZIP Co de Phone Number [facility] [place] [address] * POC, GLUCOSE (05/19/2024 3:59 PM EDT) Glucometer, POC 185 65 - 199 mg/dL 05/19/2024 3:59 PM EDT [facility] Comment:Supplemental ranges: <140 mg/dL before meals <180 mg/dL all other times of the day. Blood CAPILLARY BLOOD / Unknown 05/19/2024 3:59 PM EDT 05/19/2024 3:59 PM EDT Saba Spears MD POINT OF CARE TEST ORDERABLES [facility] [place] [address] * POC, GLUCOSE (05/19/2024 12:32 PM EDT) Glucometer, POC 143 65 - 199 mg/dL 05/19/2024 12:32 PM EDT [facility] Comment:Supplemental ranges: <140 mg/dL before meals <180 mg/dL all other times of the day. Blood CAPILLARY BLOOD / Unknown 05/19/2024 12:32 PM EDT 05/19/2024 12:32 PM EDT Saba Spears MD POINT OF CARE TEST ORDERABLES Performing Organization Address [facility]/ZIP Co de Phone Number [facility] [address] * POC, GLUCOSE (05/19/2024 8:12 AM EDT) Glucometer, POC 181 65 - 199 mg/dL 05/19/2024 8:13 AM EDT [facility] Comment:Supplemental ranges: <140 mg/dL before meals <180 mg/dL all other times of the day. Blood CAPILLARY BLOOD / Unknown 05/19/2024 8:12 AM EDT 05/19/2024 8:13 AM EDT Saba Spears MD POINT OF CARE TEST ORDERABLES Performing Organization Address [facility]/ZIP Co de Phone Number [facility] [place] [address] * (ABNORMAL) Magnesium (05/19/2024 5:11 AM EDT) Magnesium 1.08(H) 0.69 - 1.07 mMol/L 05/19/2024 5:58 AM EDT [facility] Blood VENOUS BLOOD SPECIMEN / Unknown IP Care Team Draw / Unknown 05/19/2024 5:11 AM EDT 05/19/2024 5:30 AM EDT Mary De La Fuente MD CHEMISTRY ORDERABL ES Performing Organization Address City/[facility]/ZIP Co de Phone Number [facility] [place] [address] * (ABNORMAL) Phosphorus (05/19/2024 5:11 AM EDT) Phosphorus 5.1(H) 2.5 - 4.5 mg/dL 05/19/2024 5:58 AM EDT [facility] Blood VENOUS BLOOD SPECIMEN / Unknown IP Care Team Draw / Unknown 05/19/2024 5:11 AM EDT 05/19/2024 5:30 AM EDT Mary De La Fuente MD CHEMISTRY ORDERABL ES [facility] [place] [address] * (ABNORMAL) Basic Metabolic Panel (non-fasting) (05/19/2024 5:11 AM EDT) Glucose 162 65 - 199 mg/dL 05/19/2024 6:53 AM EDT [facility] Comment:Glucose Concentratio n >=200 mg/dL plus symptoms is consistent with Diabetes Mellitus. Blood Urea Nitrogen 118(H) 10 - 20 mg/dL 05/19/2024 6:53 AM [facility] Creatinine 2.75(H) 0.80 - 1.50 mg/dL 05/19/2024 6:53 AM EDT [facility] Sodium 136 135 - 145 mMol/L 05/19/2024 6:53 AM [facility] Potassium 5.2(H) 3.5 - 5.0 mMol/L 05/19/2024 6:53 AM [facility] [facility] Chloride 108(H) 98 - 107 mMol/L 05/19/2024 6:53 AM [facility] Carbon Dioxide 18(L) 22 - 31 mMol/L 05/19/2024 6:53 AM T [facility] Anion Gap 10 5 - 15 mMol/L 05/19/2024 6:53 AM [facility] Calcium 9.3 8.5 - 10.5 mg/dL 05/19/2024 6:53 AM [facility] Est Glomerular Filtration Rate - Male 24 mL/min/1. 73 m?? 05/19/2024 6:53 AM [facility] Comment: This [...] Fasting Status No 05/19/2024 6:53 AM EDT [facility] Blood VENOUS BLOOD SPECIMEN / Unknown IP Care Team Draw / Unknown 05/19/2024 5:11 AM EDT 05/19/2024 5:30 AM EDT Mary De La Fuente MD CHEMISTRY ORDERABL ES [facility] [place] [address] * (ABNORMAL) CBC (with Diff) (05/19/2024 5:11 AM EDT) White Blood Cell 12.77(H) 4.00 - 9.50 x10(3)/mc L 05/19/2024 5:37 AM EDT [facility] Red Blood Cell 3.11(L) 4.58 - 5.54 x10(6)/mc L 05/19/2024 5:37 AM T [facility] Hemoglobin 9.3(L) 13.7 - 16.5 g/dL 05/19/2024 5:37 AM [facility] Hematocrit 28.9(L) 40.5 - 48.5 % 05/19/2024 5:37 AM EDT [facility] Mean Cell Volume 92.9 82.9 - 93.1 fL 05/19/2024 5:37 AM [facility] Mean Cell Hemoglobin 29.9 27.5 - 32.1 pg 05/19/2024 5:37 AM EDT [facility] Mean Cell [...] AM [facility] Neutrophil Absolute (ANC) - Automated 10.06(H) 1.70 - 6.10 x10(3)/mc L 05/19/2024 5:37 AM [facility] Lymph % 8.1 % 05/19/2024 5:37 AM [facility] Lymph Absolute 1.03 0.90 - 3.20 x10(3)/mc L 05/19/2024 5:37 AM [facility] Monocyte % 10.3 % 05/19/2024 5:37 AM [facility] Monocyte Absolute 1.32(H) 0.30 - 0.90 x10(3)/mc L 05/19/2024 5:37 AM [facility] Eos % 1.6 % 05/19/2024 5:37 AM [facility] Eos Absolute 0.21 0.00 - 0.40 x10(3)/mc L 05/19/2024 5:37 AM EDT [facility] Basophil % 0.2 % 05/19/2024 5:37 AM EDT [facility] Baso Absolute 0.03 0.00 - 0.10 x10(3)/mc L 05/19/2024 5:37 AM EDT [facility] Immature Gran % 0.9 % 5:37 AM EDT [facility] Immature Gran Absolute 0.12(H) 0.00 - 0.04 x10(3)/mc L 05/19/2024 5:37 AM EDT [facility] Blood VENOUS BLOOD SPECIMEN / Unknown IP Care Team Draw / Unknown 05/19/2024 5:11 AM EDT 05/19/2024 5:30 AM EDT Mary De La Fuente MD HEMATOLOGY ORDERAB LES Performing Organization Address City/[facility]/ZIP Co de Phone Number [facility] [place] [address] * POC, GLUCOSE (05/19/2024 3:27 AM EDT) Glucometer, POC 171 65 - 199 mg/dL 05/19/2024 3:28 AM EDT [facility] Comment:Supplemental ranges: <140 mg/dL before meals <180 mg/dL all other times of the day. Blood CAPILLARY BLOOD / Unknown 05/19/2024 3:27 AM EDT 05/19/2024 3:28 AM EDT Saba Spears MD POINT OF CARE TEST ORDERABLES Performing Organization Address [facility]/ZIP Co de Phone Number [facility] [place] [address] * POC, GLUCOSE (05/19/2024 12:02 AM EDT) Glucometer, POC 183 65 - 199 mg/dL 05/19/2024 12:02 AM EDT [facility] Comment:Supplemental ranges: <140 mg/dL before meals <180 mg/dL all other times of the day. Blood CAPILLARY BLOOD / Unknown 05/19/2024 12:02 AM EDT 05/19/2024 12:02 AM EDT Saba Spears MD POINT OF CARE TEST ORDERABLES Performing Organization Address City/[facility] Co de Phone Number [facility] [address] * (ABNORMAL) POC, GLUCOSE (05/18/2024 8:05 PM EDT) Glucometer, POC 207(H) 65 - 199 mg/dL 05/18/2024 8:06 PM EDT [facility] Comment:Supplemental ranges: <140 mg/dL before meals <180 mg/dL all other times of the day. Blood CAPILLARY BLOOD / Unknown 05/18/2024 8:05 PM EDT 05/18/2024 8:06 PM EDT Saba Spears MD POINT OF CARE TEST ORDERABLES Performing Organization Address [facility] Co de Phone Number [facility] [address] * POC, GLUCOSE (05/18/2024 6:14 PM EDT) Glucometer, POC 174 65 - 199 mg/dL 05/18/2024 6:15 PM EDT [facility] Comment:Supplemental ranges: <140 mg/dL before meals <180 mg/dL all other times of the day. Blood CAPILLARY BLOOD / Unknown 05/18/2024 6:14 PM EDT 05/18/2024 6:15 PM EDT Saba Spears MD POINT OF CARE TEST ORDERABLES Performing Organization Address City/[facility] Co de Phone Number [facility] [address] * (ABNORMAL) Basic Metabolic Panel (05/18/2024 5:04 PM EDT) Glucose 170 65 - 199 mg/dL 05/18/2024 6:14 PM [facility] Comment:Glucose Concentratio n >=200 mg/dL plus symptoms is consistent with Diabetes Mellitus. Blood Urea Nitrogen 116(H) 10 - 20 mg/dL 05/18/2024 6:14 PM [facility] Creatinine 2.64(H) 0.80 - 1.50 mg/dL 05/18/2024 6:14 PM [facility] Sodium 139 135 - 145 mMol/L 05/18/2024 6:14 PM [facility] Potassium 5.4(H) 3.5 - 5.0 mMol/L 05/18/2024 6:14 PM [facility] Chloride 110(H) 98 - 107 mMol/L 05/18/2024 6:14 PM [facility] Carbon Dioxide 17(L) 22 - 31 mMol/L 05/18/2024 6:14 PM [facility] Anion Gap 12 5 - 15 mMol/L 05/18/2024 6:14 PM [facility] Calcium 9.2 8.5 - 10.5 mg/dL 05/18/2024 6:14 PM [facility] Est Glomerular Filtration Rate - Male 25 mL/min/1. 73 m?? 05/18/2024 6:14 PM [facility] Comment: This patient's [...] Fasting Status No 05/18/2024 6:14 PM EDT [facility] Blood VENOUS BLOOD SPECIMEN / Unknown IP Care Team Draw / Unknown 05/18/2024 5:04 PM EDT 05/18/2024 5:11 PM EDT Saba Spears MD CHEMISTRY ORDERABLE S Performing Organization Address [facility] Co de Phone Number [facility] [address] * (ABNORMAL) POC, GLUCOSE (05/18/2024 11:45 AM EDT) Glucometer, POC 211(H) 65 - 199 mg/dL 05/18/2024 11:45 AM EDT [facility] Comment:Supplemental ranges: <140 mg/dL before meals <180 mg/dL all other times of the day. Blood CAPILLARY BLOOD / Unknown 05/18/2024 11:45 AM EDT 05/18/2024 11:45 AM EDT Saba Spears MD POINT OF CARE TEST ORDERABLES Performing Organization Address [facility] de Phone Number [facility] [address] * C diff Screen (05/18/2024 11:31 AM EDT) C Diff Interp Negative Negative 05/18/2024 3:02 PM EDT [facility] Comment:Clostridioides diffi cile is not present in the specimen. If patient is having diarrhea suspected to be from an infectious cause, then Soap & Water Contact Precautions are still required. If patient is having diarrhea with no suspected infectious cause use standard precautions. C Diff PCR Negative Negative, Indeterminate 05/18/2024 3:02 PM EDT [facility] Stool STOOL SPECIMEN / Unknown Non Blood Collection / Unknown 05/18/2024 11:31 AM EDT 05/18/2024 12:09 PM EDT Saba Spears MD MICROBIOLOGY - GENE RAL ORDERABLES Performing Organization Address City/[facility]/ZIP Co de Phone Number [facility] [place] [address] * C Diff PCR (05/18/2024 11:31 AM EDT) Stool STOOL SPECIMEN / Unknown Non Blood Collection / Unknown 05/18/2024 11:31 AM EDT 05/18/2024 12:09 PM EDT Saba Spears MD MICROBIOLOGY - GENE RAL ORDERABLES Performing Organization Address City/[facility]/ZIP Co de Phone Number [facility] [address] * Creatinine, urine, random (05/18/2024 8:57 AM EDT) Creatinine, Urine 44 mg/dL 05/18/2024 9:36 AM EDT [facility] Urine URINE SPECIMEN / Unknown Non Blood Collection / Unknown 05/18/2024 8:57 AM EDT 05/18/2024 9:07 AM EDT Saba Spears MD URINE ORDERABLES Performing Organization Address City/[facility]/ZIP Co de Phone Number [facility] [place] [address] * Electrolytes, urine, random (05/18/2024 8:57 AM EDT) Sodium, Urine 50 mMol/L 05/18/2024 12:09 PM EDT [facility] Potassium, Urine 13 mMol/L 05/18/2024 12:09 PM EDT [facility] Chloride, Urine 35 mMol/L 05/18/2024 12:09 PM EDT [facility] Urine URINE SPECIMEN / Unknown Non Blood Collection / Unknown 05/18/2024 8:57 AM EDT 05/18/2024 9:07 AM EDT Saba Spears MD URINE ORDERABLES Performing Organization Address [facility] Co de Phone Number [facility] [place] [address] * POC, GLUCOSE (05/18/2024 8:34 AM EDT) Glucometer, POC 182 65 - 199 mg/dL 05/18/2024 8:35 AM EDT [facility] Comment:Supplemental ranges: <140 mg/dL before meals <180 mg/dL all other times of the day. Blood CAPILLARY BLOOD / Unknown 05/18/2024 8:34 AM EDT 05/18/2024 8:35 AM EDT Saba Spears MD POINT OF CARE TEST ORDERABLES Performing Organization Address [facility] Co de Phone Number [facility] [place] [address] * POC, GLUCOSE (05/18/2024 4:10 AM EDT) Glucometer, POC 163 65 - 199 mg/dL 05/18/2024 4:10 AM EDT [facility] Comment:Supplemental ranges: <140 mg/dL before meals <180 mg/dL all other times of the day. Blood CAPILLARY BLOOD / Unknown 05/18/2024 4:10 AM EDT 05/18/2024 4:11 AM EDT Saba Spears MD POINT OF CARE TEST ORDERABLES Performing Organization Address [facility] Co de Phone Number [facility] [place] [address] * (ABNORMAL) CBC (with Diff) (05/18/2024 4:01 AM EDT) White Blood Cell 9.84(H) 4.00 - 9.50 x10(3)/mc L 05/18/2024 4:19 AM EDT [facility] Red Blood Cell 3.24(L) [...] Neutrophil % 76.5 % 05/18/2024 4:19 AM [facility] Neutrophil Absolute (ANC) - Automated 7.52(H) 1.70 - 6.10 x10(3)/mc L 05/18/2024 4:19 AM [facility] Lymph % 8.0 % 05/18/2024 4:19 AM EDT [facility] Lymph Absolute 0.79(L) 0.90 - 3.20 x10(3)/mc L 05/18/2024 4:19 AM EDT [facility] Monocyte % 12.5 % 05/18/2024 4:19 AM EDT [facility] Monocyte Absolute 1.23(H) 0.30 - 0.90 x10(3)/mc L 05/18/2024 4:19 AM EDT [facility] Eos % 1.9 % 05/18/2024 4:19 AM EDT [facility] Eos Absolute 0.19 0.00 - 0.40 x10(3)/mc L 05/18/2024 4:19 AM EDT [facility] Basophil % 0.2 % 05/18/2024 4:19 AM EDT [facility] Baso Absolute 0.02 0.00 - 0.10 x10(3)/mc L 05/18/2024 4:19 AM EDT [facility] Immature Gran % 0.9 % 4:19 AM EDT [facility] Immature Gran Absolute 0.09(H) 0.00 - 0.04 x10(3)/mc L 05/18/2024 4:19 AM EDT [facility] Blood VENOUS BLOOD SPECIMEN / Unknown IP Care Team Draw / Unknown 05/18/2024 4:01 AM EDT 05/18/2024 4:13 AM EDT Mary De L aFuente MD HEMATOLOGY ORDERAB LES [facility] [place] [address] * (ABNORMAL) Magnesium (05/18/2024 4:00 AM EDT) Magnesium 1.09(H) 0.69 - 1.07 mMol/L 05/18/2024 10:11 AM EDT [facility] Blood VENOUS BLOOD SPECIMEN / Unknown IP Care Team Draw / Unknown 05/18/2024 4:00 AM EDT 05/18/2024 4:13 AM EDT Mary De La Fuente MD CHEMISTRY ORDERABL ES Performing Organization Address [facility] Co de Phone Number [facility] [address] * (ABNORMAL) Phosphorus (05/18/2024 4:00 AM EDT) Phosphorus 4.7(H) 2.5 - 4.5 mg/dL 05/18/2024 10:11 AM EDT [facility] Blood VENOUS BLOOD SPECIMEN / Unknown IP Care Team Draw / Unknown 05/18/2024 4:00 AM EDT 05/18/2024 4:13 AM EDT Mary De La Fuente MD CHEMISTRY ORDERABL ES Performing Organization Address [facility] de Phone Number [facility] [place] [address] * (ABNORMAL) Basic Metabolic Panel (non-fasting) (05/18/2024 4:00 AM EDT) Glucose 144 65 - 199 mg/dL 05/18/2024 10:11 AM EDT [facility] Comment:Glucose Concentratio n >=200 mg/dL plus symptoms is consistent with Diabetes Mellitus. Blood Urea Nitrogen 105(H) 10 - 20 mg/dL 05/18/2024 10:11 AM EDT [facility] Creatinine 2.69(H) 0.80 - 1.50 mg/dL 05/18/2024 10:11 AM EDT [facility] Sodium 134(L) 135 - 145 mMol/L 05/18/2024 10:11 AM EDT [facility] Potassium 5.6(H) 3.5 - 5.0 mMol/L 05/18/2024 10:11 AM EDT [facility] Chloride 107 98 - 107 mMol/L 05/18/2024 10:11 AM EDT [facility] Carbon Dioxide 11(L) 22 - 31 mMol/L 05/18/2024 10:11 AM EDT [facility] Anion Gap 16(H) 5 - 15 mMol/L 05/18/2024 10:11 AM EDT [facility] Calcium 8.8 8.5 - 10.5 mg/dL 05/18/2024 10:11 AM EDT [facility] Est Glomerular Filtration Rate - Male 25 mL/min/1. 73 m?? 05/18/2024 10:11 AM EDT [facility] Comment: This patient's [...] Fasting Status No 05/18/2024 10:11 AM EDT [facility] Blood VENOUS BLOOD SPECIMEN / Unknown IP Care Team Draw / Unknown 05/18/2024 4:00 AM EDT 05/18/2024 4:13 AM EDT Mary De La Fuente MD CHEMISTRY ORDERABL ES [facility] [place] [address] * (ABNORMAL) POC, GLUCOSE (05/17/2024 11:30 PM EDT) [facility] Signature Glucometer, POC 232(H) 65 - 199 mg/dL 05/17/2024 11:30 PM EDT [facility] Comment:Supplemental ranges: <140 mg/dL before meals <180 mg/dL all other times of the day. Blood CAPILLARY BLOOD / Unknown 05/17/2024 11:30 PM EDT 05/17/2024 11:30 PM EDT Saba Spears MD POINT OF CARE TEST ORDERABLES [facility] [place] [address] * POC, GLUCOSE (05/17/2024 8:12 PM EDT) Glucometer, POC 161 65 - 199 mg/dL 05/17/2024 8:12 PM EDT [facility] Comment:Supplemental ranges: <140 mg/dL before meals <180 mg/dL all other times of the day. Blood CAPILLARY BLOOD / Unknown 05/17/2024 8:12 PM EDT 05/17/2024 8:13 PM EDT Saba Spears MD POINT OF CARE TEST ORDERABLES Performing Organization Address City/[facility]/ZIP Co de Phone Number [facility] [place] [address] * POC, GLUCOSE (05/17/2024 5:35 PM EDT) Glucometer, POC 167 65 - 199 mg/dL 05/17/2024 5:35 PM EDT [facility] Comment:Supplemental ranges: <140 mg/dL before meals <180 mg/dL all other times of the day. Blood CAPILLARY BLOOD / Unknown 05/17/2024 5:35 PM EDT 05/17/2024 5:35 PM EDT Saba Spears MD POINT OF CARE TEST ORDERABLES [facility] [address] * POC, GLUCOSE (05/17/2024 12:50 PM EDT) Glucometer, POC 147 65 - 199 mg/dL 05/17/2024 12:50 PM EDT [facility] Comment:Supplemental ranges: <140 mg/dL before meals <180 mg/dL all other times of the day. Blood CAPILLARY BLOOD / Unknown 05/17/2024 12:50 PM EDT 05/17/2024 12:50 PM EDT Saba Spears MD POINT OF CARE TEST ORDERABLES Performing Organization Address [facility]/ZIP Co de Phone Number [facility] [address] * POC, GLUCOSE (05/17/2024 8:20 AM EDT) Glucometer, POC 139 65 - 199 mg/dL 05/17/2024 8:21 AM EDT [facility] Comment:Supplemental ranges: <140 mg/dL before meals <180 mg/dL all other times of the day. Blood CAPILLARY BLOOD / Unknown 05/17/2024 8:20 AM EDT 05/17/2024 8:21 AM EDT Treva Diaz MD POINT OF CARE TEST ORDERABLES Performing Organization Address [facility] Co de Phone Number [facility] [place] [address] * (ABNORMAL) Magnesium (05/17/2024 5:49 AM EDT) Magnesium 1.14(H) 0.69 - 1.07 mMol/L 05/17/2024 6:58 AM EDT [facility] Blood IP Care Team w / Unknown 05/17/2024 5:49 AM EDT 05/17/2024 6:13 AM EDT Mary De La Fuente MD CHEMISTRY ORDERABL ES Performing Organization Address City/[facility]/ZIP Co de Phone Number [facility] [address] * (ABNORMAL) Phosphorus (05/17/2024 5:49 AM EDT) Phosphorus 5.6(H) 2.5 - 4.5 mg/dL 05/17/2024 6:58 AM EDT [facility] Blood IP Care Team w / Unknown 05/17/2024 5:49 AM EDT 05/17/2024 6:13 AM EDT Mary De La Fuente MD CHEMISTRY ORDERABL ES [facility] [place] [address] * (ABNORMAL) Basic Metabolic Panel (non-fasting) (05/17/2024 5:49 AM EDT) Glucose 131 65 - 199 mg/dL 05/17/2024 6:58 AM EDT [facility] Comment:Glucose Concentratio n >=200 mg/dL plus symptoms is consistent with Diabetes Mellitus. Blood Urea Nitrogen 86(H) 10 - 20 mg/dL 05/17/2024 6:58 AM EDT [facility] Creatinine 3.07(H) 0.80 - 1.50 mg/dL 05/17/2024 6:58 AM EDT [facility] Sodium 134(L) 135 - 145 mMol/L 05/17/2024 6:58 AM EDT [facility] Potassium 5.0 3.5 - 5.0 mMol/L 05/17/2024 6:58 AM EDT [facility] Chloride 103 98 - 107 mMol/L 05/17/2024 6:58 [facility] Carbon Dioxide 21(L) 22 - 31 mMol/L 05/17/2024 6:58 AM EDT [facility] Anion Gap 10 5 - 15 mMol/L 05/17/2024 6:58 AM [facility] Calcium 8.7 8.5 - 10.5 mg/dL 05/17/2024 6:58 [facility] Est Glomerular Filtration Rate - Male 21 mL/min/1. 73 m?? 05/17/2024 6:58 AM EDT [facility] Comment: This patient's [...] Fasting Status No 05/17/2024 6:58 AM EDT [facility] Blood IP Care Team w / Nick 05/17/2024 5:49 AM EDT 05/17/2024 6:13 AM EDT Mary De La Fuente MD CHEMISTRY ORDERABL ES [facility] [place] [id number] * (ABNORMAL) CBC (with Diff) (05/17/2024 5:49 AM EDT) White Blood Cell 8.61 4.00 - 9.50 x10(3)/mc L 05/17/2024 6:28 AM EDT [facility] Red Blood Cell 3.54(L) 4.58 - 5.54 x10(6)/mc L 05/17/2024 6:28 AM EDT [facility] Hemoglobin 10.5(L) 13.7 - 16.5 g/dL 05/17/2024 6:28 AM EDT [facility] Hematocrit 33.9(L) 40.5 - 48.5 % 05/17/2024 6:28 AM EDT [facility] Mean Cell Volume 95.8(H) 82.9 - 93.1 fL 05/17/2024 6:28 AM EDT [facility] Mean Cell [...] AM [facility] Neutrophil Absolute (ANC) - Automated 6.57(H) 1.70 - 6.10 x10(3)/mc L 05/17/2024 6:28 AM [facility] Lymph % 9.9 % 05/17/2024 6:28 AM [facility] Lymph Absolute 0.85(L) 0.90 - 3.20 x10(3)/mc L 05/17/2024 6:28 AM [facility] Monocyte % 11.7 % 05/17/2024 6:28 AM [facility] Monocyte Absolute 1.01(H) 0.30 - 0.90 x10(3)/mc L 05/17/2024 6:28 AM [facility] Eos % 0.8 % 05/17/2024 6:28 AM EDT [facility] Eos Absolute 0.07 0.00 - 0.40 x10(3)/mc L 05/17/2024 6:28 AM EDT [facility] Basophil % 0.1 % 05/17/2024 6:28 AM EDT [facility] Baso Absolute 0.01 0.00 - 0.10 x10(3)/mc L 05/17/2024 6:28 AM EDT [facility] Immature Gran % 1.2 % 6:28 AM EDT [facility] Immature Gran Absolute 0.10(H) 0.00 - 0.04 x10(3)/mc L 05/17/2024 6:28 AM EDT [facility] Blood IP Care Team w / Unknown 05/17/2024 5:49 AM EDT 05/17/2024 6:13 AM EDT Mary De La Fuente MD HEMATOLOGY ORDERAB LES Performing Organization Address City/[facility]/ZIP Co de Phone Number [facility] [address] * Vancomycin Level, Random (05/17/2024 5:49 AM EDT) Vancomycin, Random 22.4 mg/L 2023 6:58 AM EDT [facility] Comment:This level is for de termination of the patient's vancomycin gafv-dflly-abi-curve (AUC) value. Contact the inpatient pharmacy for interpretation. Blood IP Care Team w / Nick 05/17/2024 5:49 AM EDT 05/17/2024 6:13 AM EDT Treva Diaz MD CHEMISTRY ORDERABL ES Performing Organization Address City/[facility]/ZIP Co de Phone Number [facility] [place] [address] * POC, GLUCOSE (05/17/2024 3:54 AM EDT) Glucometer, POC 135 65 - 199 mg/dL 05/17/2024 3:55 AM EDT [facility] Comment:Supplemental ranges: <140 mg/dL before meals <180 mg/dL all other times of the day. Blood CAPILLARY BLOOD / Unknown 05/17/2024 3:54 AM EDT 05/17/2024 3:55 AM EDT Treva Diaz MD POINT OF CARE TEST ORDERABLES [facility] [place] [address] * POCT Glucose (05/16/2024 11:46 PM EDT) Glucose, POC 148 65 - 199 mg/dL [facility] Comment: Supplemental ranges: <140 mg/dL before meals <180 mg/dL all other times of the day Blood 05/16/2024 11:4 6 PM EDT 05/16/2024 11:46 PM EDT Treva Diaz MD POINT OF CARE TEST ORDERABLES [facility] [place] [address] * POCT Glucose (05/16/2024 9:06 PM EDT) Glucose, POC 191 65 - 199 mg/dL [facility] Comment: Supplemental ranges: <140 mg/dL before meals <180 mg/dL all other times of the day Blood 05/16/2024 9:06 PM EDT 05/16/2024 9:06 PM EDT Treva Diaz MD POINT OF CARE TEST ORDERABLES [facility] [place] [address] * POCT Glucose (05/16/2024 8:04 PM EDT) Glucose, POC 199 65 - 199 mg/dL [facility] Comment: Supplemental ranges: <140 mg/dL before meals <180 mg/dL all other times of the day Blood 05/16/2024 8:04 PM EDT 05/16/2024 8:04 PM EDT Treva Diaz MD POINT OF CARE TEST ORDERABLES [facility] [place] [address] * POCT Glucose (05/16/2024 4:51 PM EDT) Glucose, POC 162 65 - 199 mg/dL [facility] Comment: Supplemental ranges: <140 mg/dL before meals <180 mg/dL all other times of the day Blood 05/16/2024 4:51 PM EDT 05/16/2024 4:51 PM EDT Treva Diaz MD POINT OF CARE TEST ORDERABLES [facility] [place] [place] [address] * POCT Glucose (05/16/2024 12:48 PM EDT) Glucose, POC 153 65 - 199 mg/dL [facility] Comment: Supplemental ranges: <140 mg/dL before meals <180 mg/dL all other times of the day Blood 05/16/2024 12:4 8 PM EDT 05/16/2024 12:48 PM EDT Treva Diaz MD POINT OF CARE TEST ORDERABLES [facility] [place] [address] * POCT Glucose (05/16/2024 8:45 AM EDT) [facility] Glucose, POC 165 65 - 199 mg/dL [facility] Comment: Supplemental ranges: <140 mg/dL before meals <180 mg/dL all other times of the day Blood 05/16/2024 8:45 AM EDT 05/16/2024 8:45 AM EDT Treva Diaz MD POINT OF CARE TEST ORDERABLES [facility] [place] [address] * (ABNORMAL) Differential, Automated (05/16/2024 5:14 AM EDT) [facility] Neutrophil % 79.4 % [facility] Neutrophil Absolute 9.22(H) 1.70 - 6.10 x10(3)/mc L [facility] Lymph % 6.6 % [facility] Lymphocytes Abs 0.8(L) 0.9 - 3.2 x10(3)/mc L [facility] Monocyte % 9.5 % [facility] Monocyte Abs 1.1(H) 0.3 - 0.9 x10(3)/mc L [facility] Eos % 0.0 % [facility] Eosinophils Abs 0.0 0.0 - 0.4 x10(3)/mc L [facility] Basophil % 0.2 % [facility] Baso Absolute 0.0 0.0 - 0.1 x10(3)/mc L [facility] Immature Gran % 4.30 % [facility] Comment: Immature granulocytes(IG's)percentage and absolute count will include metamyelocytes, myelocytes, and promyelocytes. Blood smears from CBCs yielding IG's will be scanned manually for concordance. If this scan disagrees with the automated IG or if promyelocytes are noted, a manual differential will be performed. Immature Gran Absolute 0.50(H) 0.00 - 0.04 x10(3)/mc L [facility] Blood 05/16/2024 5:14 AM EDT 05/16/2024 5:38 AM EDT Narrative Resulting Agency Comment Spec In Lab Carlotta Davis MD HEMATOLOGY OR DERABLES Performing Organization Address City/State/[facility] Co de Phone Number [facility] [place] [place] [address] * (ABNORMAL) Hemogram (05/16/2024 5:14 AM EDT) White Blood Cell 11.6(H) 4.0 - 9.5 x10(3)/[facility] Red Blood Cell 3.59(L) 4.58 - 5.54 x10(6)/[facility] Hemoglobin 10.5(L) 13.7 - 16.5 g/dL [facility] Hematocrit 33.8(L) 40.5 - 48.5 % [facility] Mean Cell Volume 94.2(H) 82.9 - 93.1 [facility] Mean Cell Hemoglobin 29.2 27.5 - 32.1 pg [facility] Mean Cell Hemoglobin Concentration 31.1(L) 32.0 - 35.7 g/dL [facility] Platelet 317 145 - 357 x10(3)/[facility] RDW Standard Deviation 55.1(H) 36.0 - 45.0 [facility] RDW coefficient of variation 15.9(H) 11.4 - 13.8 % [facility] Mean Platelet Volume 10.6 7.6 - 12.9 [facility] NRBC% auto 0.0 % [facility] NRBC Absolute 0.000 0.000 - 0.000 x10(3)/[facility] Blood 05/16/2024 5:14 AM EDT 05/16/2024 5:38 AM EDT Narrative Resulting Agency Comment Spec In Lab Carlotta Davis MD HEMATOLOGY OR DERABLES Performing Organization Address [facility] Co de Phone Number [facility] [place] [address] * (ABNORMAL) Magnesium (05/16/2024 5:14 AM EDT) Magnesium 1.22(H) 0.69 - 1.07 mmol/L [facility] Blood 05/16/2024 5:14 AM EDT 05/16/2024 5:38 AM EDT Narrative Resulting Agency Comment Spec In Lab Mary De La Fuente MD CHEMISTRY ORDERABL ES Performing Organization Address [facility] de Phone Number [facility] [place] [address] * (ABNORMAL) Phosphorus (05/16/2024 5:14 AM EDT) Phosphorus 6.3(H) 2.5 - 4.5 mg/dL [facility] Blood 05/16/2024 5:14 AM EDT 05/16/2024 5:38 AM EDT Narrative Resulting Agency Comment Spec In Lab Mary De La Fuente MD CHEMISTRY ORDERABL ES Performing Organization Address [facility] de Phone Number [facility] [place] [address] * (ABNORMAL) Basic Metabolic Panel (non-fasting) (05/16/2024 5:14 AM EDT) Glucose 154 65 - 199 mg/dL [facility] Comment:Diabetes: >=200 mg/d L plus symptoms Blood Urea Nitrogen 74(H) 10 - 20 mg/dL [facility] Creatinine 2.88(H) 0.80 - 1.50 mg/dL [facility] Sodium 133(L) 135 - 145 mmol/L [facility] Potassium 5.0 3.5 - 5.0 mmol/L [facility] Comment: Please note: ??Patients with WBC >100,000 may have falsely elevated Potassium levels. ??For accurate Potassium quantification in these patients send serum separator tube (gold top) for subsequent determinations. ??Contact the Clinical Chemistry Laboratory if there are any questions. Chloride 101 98 - 107 mmol/L [facility] Carbon Dioxide 21(L) 22 - 31 mmol/L [facility] Anion Gap 11 5 - 15 mmol/L [facility] Calcium 8.8 8.5 - 10.5 mg/dL [facility] Est Glomerular Filtration Rate 23(L) >=60 mL/min/1. 73 m?? [facility] Comment: This patient's [...] De La Fuente MD CHEMISTRY ORDERABL ES [facility] [place] [address] * Vancomycin Level, Random (05/16/2024 5:14 AM EDT) Vancomycin, Random 29.1 mg/L [facility] Comment: This level is for determination of the patient's vancomycin ocvl-yrxkm-uvs-curve (AUC) value. Contact the inpatient pharmacy for interpretation. Blood 05/16/2024 5:14 AM EDT 05/16/2024 5:38 AM EDT Treva Diaz MD CHEMISTRY ORDERABL ES Performing Organization Address [facility] Co de Phone Number [facility] [place] [address] * POCT Glucose (05/16/2024 3:53 AM EDT) Glucose, POC 166 65 - 199 mg/dL [facility] Comment: Supplemental ranges: <140 mg/dL before meals <180 mg/dL all other times of the day Blood 05/16/2024 3:53 AM EDT 05/16/2024 3:53 AM EDT Treva Diaz MD POINT OF CARE TEST ORDERABLES Performing Organization Address [facility] Co de Phone Number [facility] [place] [address] * POCT Glucose (05/15/2024 11:41 PM EDT) Glucose, POC 171 65 - 199 mg/dL [facility] Comment: Supplemental ranges: <140 mg/dL before meals <180 mg/dL all other times of the day Blood 05/15/2024 11:4 1 PM EDT 05/15/2024 11:41 PM EDT Treva Diaz MD POINT OF CARE TEST ORDERABLES Performing Organization Address [facility] Co de Phone Number [facility] [place] [address] * POCT Glucose (05/15/2024 10:32 PM EDT) Glucose, POC 183 65 - 199 mg/dL [facility] Comment: Supplemental ranges: <140 mg/dL before meals <180 mg/dL all other times of the day Blood 05/15/2024 10:3 2 PM EDT 05/15/2024 10:32 PM EDT Treva Diaz MD POINT OF CARE TEST ORDERABLES [facility] [place] [address] * POCT Glucose (05/15/2024 7:53 PM EDT) Glucose, POC 187 65 - 199 mg/dL [facility] Comment: Supplemental ranges: <140 mg/dL before meals <180 mg/dL all other times of the day Blood 05/15/2024 7:53 PM EDT 05/15/2024 7:53 PM EDT Treva Diaz MD POINT OF CARE TEST ORDERABLES Performing Organization Address City/[facility]/ZIP Co de Phone Number [facility] [place] [address] * MRSA PCR Screen ([facility]/CGP/APD/[facility]) (05/15/2024 4:15 PM EDT) MRSA PCR Negative Negative [facility] MRSA (Interp) Methicillin-resist ant Staphylococcus aureus (MRSA) is NOT DETECTED The MRSA target DNA sequences (mec and SCC) were not detected within the acceptable ranges using the Xpert MRSA NxG on the GeneXpert Dx System (TwentyFour[employer]). This suggests the absence of MRSA in the patient specimen submitted for testing. This test is cleared by the U.S. Food and Drug Administration for clinical use and its performance characteristics have been verified by the [facility] at [facility]. This result does not rule out the presence of any other organisms. Rare false negative results may occur if MRSA is present at low concentrations with much higher concentrations of other organisms including MRSE or S. aureus with an empty SCC cassette. [facility] Comment: [VERIFIED DATE]05.15.24 Verified By:Lupe Jensen (Electronic Signature) Nasopharyngeal Swab 05/15/20 4:15 PM EDT 05/15/2024 6:28 PM EDT Comment:Specimen Type->Nasop haryngeal Swab Narrative Resulting Agency Comment Spec In Lab Treva Diaz MD MOLECULAR ORDERABL ES Performing Organization Address [facility]/ZIP Co de Phone Number [facility] [place] [address] * (ABNORMAL) POCT Glucose (05/15/2024 3:20 PM EDT) Glucose, POC 224(H) 65 - 199 mg/dL [facility] Comment: Supplemental ranges: <140 mg/dL before meals <180 mg/dL all other times of the day Blood 05/15/2024 3:20 PM EDT 05/15/2024 3:20 PM EDT Treva Diaz MD POINT OF CARE TEST ORDERABLES Performing Organization Address [facility] Co de Phone Number [facility] [place] [address] * (ABNORMAL) POCT Glucose (05/15/2024 11:39 AM EDT) Glucose, POC 213(H) 65 - 199 mg/dL [facility] Comment: Supplemental ranges: <140 mg/dL before meals <180 mg/dL all other times of the day Blood 05/15/2024 11:3 9 AM EDT 05/15/2024 11:39 AM EDT Treva Diaz MD POINT OF CARE TEST ORDERABLES Performing Organization Address [facility]/ZIP Co de Phone Number [facility] [place] [address] * POCT Glucose (05/15/2024 8:02 AM EDT) Glucose, POC 190 65 - 199 mg/dL [facility] Comment: Supplemental ranges: <140 mg/dL before meals <180 mg/dL all other times of the day Blood 05/15/2024 8:02 AM EDT 05/15/2024 8:02 AM EDT Treva Diaz MD POINT OF CARE TEST ORDERABLES [facility] [place] [address] * (ABNORMAL) Differential, Automated (05/15/2024 5:12 AM EDT) Neutrophil % 85.3 % [facility] Neutrophil Absolute 11.37(H) 1.70 - 6.10 x10(3)/ L [facility] Lymph % 3.7 % [facility] Lymphocytes Abs 0.5(L) 0.9 - 3.2 x10(3)/[facility] Monocyte % 9.1 % [facility] Monocyte Abs 1.2(H) 0.3 - 0.9 x10(3)/[facility] Eos % 0.0 % [facility] Eosinophils Abs 0.0 0.0 - 0.4 x10(3)/[facility] Basophil % 0.1 % [facility] Baso Absolute 0.0 0.0 - 0.1 x10(3)/ L [facility] Immature Gran % 1.80 % [facility] Comment: Immature granulocytes(IG's)percentage and absolute count will include metamyelocytes, myelocytes, and promyelocytes. Blood smears from CBCs yielding IG's will be scanned manually for concordance. If this scan disagrees with the automated IG or if promyelocytes are noted, a manual differential will be performed. Immature Gran Absolute 0.24(H) 0.00 - 0.04 x10(3)/ L [facility] Blood 05/15/2024 5:12 AM EDT 05/15/2024 5:38 AM EDT Narrative Resulting Agency Comment Spec In Lab Carlotta Davis MD HEMATOLOGY OR DERABLES [facility] [place] [place] [address] * (ABNORMAL) Hemogram (05/15/2024 5:12 AM EDT) White Blood Cell 13.4(H) 4.0 - 9.5 x10(3)/mc L [facility] Red Blood Cell 3.58(L) 4.58 - 5.54 x10(6)/mc L [facility] Hemoglobin 10.9(L) 13.7 - 16.5 g/dL [facility] Hematocrit 34.1(L) 40.5 - 48.5 % [facility] Mean Cell Volume 95.3(H) 82.9 - 93.1 fL [facility] Mean Cell Hemoglobin 30.4 27.5 - 32.1 pg [facility] Mean Cell Hemoglobin Concentration 32.0 32.0 - 35.7 g/dL [facility] Platelet 227 145 - 357 x10(3)/mc L [facility] RDW Standard Deviation 55.8(H) 36.0 - 45.0 fL [facility] RDW coefficient of variation 15.8(H) 11.4 - 13.8 % [facility] Mean Platelet Volume 10.7 7.6 - 12.9 fL [facility] NRBC% auto 0.0 % [facility] NRBC Absolute 0.000 0.000 - 0.000 x10(3)/mc L [facility] Blood 05/15/2024 5:12 AM EDT 05/15/2024 5:38 AM EDT Narrative Resulting Agency Comment Spec In Lab Carlotta Davis MD HEMATOLOGY OR DERABLES [facility] [place] [address] * (ABNORMAL) Magnesium (05/15/2024 5:12 AM EDT) Magnesium 1.21(H) 0.69 - 1.07 mmol/L [facility] Blood 05/15/2024 5:12 AM EDT 05/15/2024 5:38 AM EDT Narrative Resulting Agency Comment Spec In Lab Mary De La Fuente MD CHEMISTRY ORDERABL ES Performing Organization Address [facility] Co de Phone Number [facility] [place] [address] * (ABNORMAL) Phosphorus (05/15/2024 5:12 AM EDT) Phosphorus 6.5(H) 2.5 - 4.5 mg/dL [facility] Comment:result rechecked-HN Blood 05/15/2024 5:12 AM EDT 05/15/2024 5:38 AM EDT Narrative Resulting Agency Comment Spec In Lab Mary De La Fuente MD CHEMISTRY ORDERABL ES Performing Organization Address [facility] de Phone Number [facility] [place] [address] * (ABNORMAL) Basic Metabolic Panel (non-fasting) (05/15/2024 5:12 AM EDT) Glucose 217(H) 65 - 199 mg/dL [facility] Comment:Diabetes: >=200 mg/d L plus symptoms Blood Urea Nitrogen 58(H) 10 - 20 mg/dL [facility] Creatinine 2.46(H) 0.80 - 1.50 mg/dL [facility] Comment:result rechecked-HN Sodium 135 135 - 145 mmol/L [facility] Potassium 5.2(H) 3.5 - 5.0 mmol/L [facility] Comment: Please note: ??Patients with WBC >100,000 may have falsely elevated Potassium levels. ??For accurate Potassium quantification in these patients send serum separator tube (gold top) for subsequent determinations. ??Contact the Clinical Chemistry Laboratory if there are any questions. Chloride 100 98 - 107 mmol/L [facility] Carbon Dioxide 23 22 - 31 mmol/L [facility] Anion Gap 12 5 - 15 mmol/L [facility] Calcium 8.8 8.5 - 10.5 mg/dL [facility] Est Glomerular Filtration Rate 27(L) >=60 mL/min/1. 73 m?? [facility] Comment: This patient's [...] MD CHEMISTRY ORDERABL ES Performing Organization Address City/[facility]/ZIP Co de Phone Number [facility] [place] [address] * (ABNORMAL) POCT Glucose (05/15/2024 4:55 AM EDT) Glucose, POC 223(H) 65 - 199 mg/dL [facility] Comment: Supplemental ranges: <140 mg/dL before meals <180 mg/dL all other times of the day Blood 05/15/2024 4:55 AM EDT 05/15/2024 4:55 AM EDT Treva Diaz MD POINT OF CARE TEST ORDERABLES [facility] [place] [place] [address] * (ABNORMAL) POCT Glucose (05/15/2024 2:51 AM EDT) Glucose, POC 279(H) 65 - 199 mg/dL [facility] Comment: Supplemental ranges: <140 mg/dL before meals <180 mg/dL all other times of the day Blood 05/15/2024 2:51 AM EDT 05/15/2024 2:51 AM EDT Treva Diaz MD POINT OF CARE TEST ORDERABLES [facility] [place] [place] [address] * (ABNORMAL) POCT Glucose (05/14/2024 9:03 PM EDT) Glucose, POC 257(H) 65 - 199 mg/dL [facility] Comment: Supplemental ranges: <140 mg/dL before meals <180 mg/dL all other times of the day Blood 05/14/2024 9:03 PM EDT 05/14/2024 9:03 PM EDT Treva Diaz MD POINT OF CARE TEST ORDERABLES [facility] [place] [address] * (ABNORMAL) POCT Glucose (05/14/2024 7:15 PM EDT) Glucose, POC 207(H) 65 - 199 mg/dL [facility] Comment: Supplemental ranges: <140 mg/dL before meals <180 mg/dL all other times of the day Blood 05/14/2024 7:15 PM EDT 05/14/2024 7:15 PM EDT Treva Diaz MD POINT OF CARE TEST ORDERABLES [facility] [place] [address] * POCT Glucose (05/14/2024 4:47 PM EDT) Glucose, POC 188 65 - 199 mg/dL [facility] Comment: Supplemental ranges: <140 mg/dL before meals <180 mg/dL all other times of the day Blood 05/14/2024 4:47 PM EDT 05/14/2024 4:47 PM EDT Treva Diaz MD POINT OF CARE TEST ORDERABLES Performing Organization Address City/[facility]/ZIP Co de Phone Number [facility] [place] [address] * POCT Glucose (05/14/2024 1:21 PM EDT) Glucose, POC 163 65 - 199 mg/dL [facility] Comment: Supplemental ranges: <140 mg/dL before meals <180 mg/dL all other times of the day Blood 05/14/2024 1:21 PM EDT 05/14/2024 1:21 PM EDT Treva Diaz MD POINT OF CARE TEST ORDERABLES Performing Organization Address City/[facility]/ZIP Co de Phone Number [facility] [place] [address] * Anaerobic Culture (05/14/2024 11:33 AM EDT) Anaerobic Culture No anaerobic organisms isolated [facility] Toe 05/14/2024 11:3 3 AM EDT 05/14/2024 12:33 PM EDT Comment:PROXIMAL RIGHT 2ND T OE Narrative Resulting Agency Comment Spec In Lab Gennaro Meyers MD MICROBIOLOGY - GENE RAL ORDERABLES Performing Organization Address City/[facility]/ZIP Co de Phone Number [facility] [place] [address] * (ABNORMAL) Tissue culture (05/14/2024 11:33 AM EDT) Tissue Culture One colony of Coagulase negative Staphylococcus species(A) [facility] Gram Stain Few Neutrophils seen Rare Gram Positive Cocci in pairs seen Results called to and read back by Dr. Mihaela Galvan ??05/14/24 14:57:00 (A) [facility] Organism Coagulase negative Staphylococcus species(A) [facility] Organism Gram Positive Cocci in pairs(A) [facility] Toe 05/14/2024 11:3 [...] Sensitive Comment:Gentamicin i s not appropriate for [place]-therapy. Coagulase Negative Staphylococcus species Levofloxacin MICROSCAN METHOD [...] Sensitive Gennaro Meyers MD MICROBIOLOGY - GENE [facility] ORDERABLES [facility] [place] [address] * Surgical Pathology Report (05/14/2024 11:32 AM EDT) Surgical Pathology Report [id number] ? Location: [id number]; [id number]; A The signing [...] MD, Shima Verified: ??05/20/2024 11:25 Performed at: ??-[facility] Dept. of Pathology, [place] [address] [employer] Instructor: Polly Barnhart MD, AP, ??CLIA Certificate: [id number] SPECIMEN(S) SUBMITTED A - RIGHT 2ND TOE, [...] Sections/Processi ng: Blocks submitted for decalcification: A1-A2. Economic Development Director sections in 2 cassettes as follows: ?A1-A2: ??Longitudinal section of digit ??cmk [facility] 05/14/2024 11:3 2 AM EDT Gennaro Meyers MD PATHOLOGY/CYTOLOGY ORDERABLES [facility] [place] [address] * Specimen to Pathology (05/14/2024 11:32 AM EDT) AP Specimen 05/14/2024 11:3 2 AM EDT 05/14/2024 11:32 AM EDT Narrative [facility] - 05/14/2024 11:32 AM EDT Specimen requisition ordered. ??Separate Pathology report to follow Treva Diaz MD PATHOLOGY/CYTOLOGY ORDERABLES Performing Organization Address City/[facility]/ZIP [place] [address] * (ABNORMAL) POCT Glucose (05/14/2024 7:58 AM EDT) [facility] Glucose, POC 203(H) 65 - 199 mg/dL [facility] Comment: Supplemental ranges: <140 mg/dL before meals <180 mg/dL all other times of the day Blood 05/14/2024 7:58 AM EDT 05/14/2024 7:58 AM EDT Treva Diaz MD POINT OF CARE TEST ORDERABLES Performing Organization Address City/[facility]/ZIP Co de Phone Number [facility] [place] [address] * (ABNORMAL) Differential, Automated (05/14/2024 5:01 AM EDT) [facility] Neutrophil % 80.5 % [facility] Neutrophil Absolute 12.45(H) 1.70 - 6.10 x10(3)/mc L [facility] Lymph % 5.5 % [facility] Lymphocytes Abs 0.8(L) 0.9 - 3.2 x10(3)/mc L [facility] Monocyte % 12.6 % [facility] Monocyte Abs 2.0(H) 0.3 - 0.9 x10(3)/mc L [facility] Eos % 0.3 % [facility] Eosinophils Abs 0.0 0.0 - 0.4 x10(3)/mc L [facility] Basophil % 0.2 % [facility] Baso Absolute 0.0 0.0 - 0.1 x10(3)/mc L [facility] Immature Gran % 0.90 % [facility] Comment: Immature granulocytes(IG's)percentage and absolute count will include metamyelocytes, myelocytes, and promyelocytes. Blood smears from CBCs yielding IG's will be scanned manually for concordance. If this scan disagrees with the automated IG or if promyelocytes are noted, a manual differential will be performed. Immature Gran Absolute 0.14(H) 0.00 - 0.04 x10(3)/ L [facility] Blood 05/14/2024 5:01 AM EDT 05/14/2024 6:02 AM EDT Narrative Resulting Agency Comment Spec In Lab Carlotta Davis MD HEMATOLOGY OR DERABLES [facility] [place] [address] * (ABNORMAL) Hemogram (05/14/2024 5:01 AM EDT) White Blood Cell 15.5(H) 4.0 - 9.5 x10(3)/mc L [facility] Red Blood Cell 3.55(L) 4.58 - 5.54 x10(6)/mc L [facility] Hemoglobin 10.8(L) 13.7 - 16.5 g/dL [facility] Hematocrit 32.8(L) 40.5 - 48.5 % [facility] Mean Cell Volume 92.4 82.9 - 93.1 fL [facility] Mean Cell Hemoglobin 30.4 27.5 - 32.1 pg [facility] Mean Cell Hemoglobin Concentration 32.9 32.0 - 35.7 g/dL [facility] Platelet 190 145 - 357 x10(3)/mc L [facility] RDW Standard Deviation 53.2(H) 36.0 - 45.0 fL [facility] RDW coefficient of variation 15.6(H) 11.4 - 13.8 % [facility] Mean Platelet Volume 11.2 7.6 - 12.9 fL [facility] NRBC% auto 0.0 % [facility] NRBC Absolute 0.000 0.000 - 0.000 x10(3)/mc L [facility] Blood 05/14/2024 5:01 AM EDT 05/14/2024 6:02 AM EDT Narrative Resulting Agency Comment Spec In Lab Carlotta Davis MD HEMATOLOGY OR DERABLES Performing Organization Address City/[facility]/ZIP Co de Phone Number [facility] [place] [address] * Magnesium (05/14/2024 5:01 AM EDT) Magnesium 0.98 0.69 - 1.07 mmol/L [facility] Blood 05/14/2024 5:01 AM EDT 05/14/2024 6:02 AM EDT Narrative Resulting Agency Comment Spec In Lab Mary De La Fuente MD CHEMISTRY ORDERABL ES Performing Organization Address City/[facility]/ZIP Co de Phone Number [facility] [place] [address] * Phosphorus (05/14/2024 5:01 AM EDT) Phosphorus 2.8 2.5 - 4.5 mg/dL [facility] Blood 05/14/2024 5:01 AM EDT 05/14/2024 6:02 AM EDT Narrative Resulting Agency Comment Spec In Lab Mary De La Fuente MD CHEMISTRY ORDERABL ES [facility] [place] [address] * (ABNORMAL) Basic Metabolic Panel (non-fasting) (05/14/2024 5:01 AM EDT) Glucose 172 65 - 199 mg/dL [facility] Comment:Diabetes: >=200 mg/d L plus symptoms Blood Urea Nitrogen 46(H) 10 - 20 mg/dL [facility] Creatinine 1.56(H) 0.80 - 1.50 mg/dL [facility] Sodium 137 135 - 145 mmol/L [facility] Potassium 4.4 3.5 - 5.0 mmol/L [facility] Comment: Please note: ??Patients with WBC >100,000 may have falsely elevated Potassium levels. ??For accurate Potassium quantification in these patients send serum separator tube (gold top) for subsequent determinations. ??Contact the Clinical Chemistry Laboratory if there are any questions. Chloride 105 98 - 107 mmol/L [facility] Carbon Dioxide 22 22 - 31 mmol/L [facility] Anion Gap 10 5 - 15 mmol/L [facility] Calcium 8.7 8.5 - 10.5 mg/dL [facility] Est Glomerular Filtration Rate 47(L) >=60 mL/min/1. 73 m?? [facility] Comment: This patient's [...] MD CHEMISTRY ORDERABL ES Performing Organization Address [facility] Co de Phone Number [facility] [place] [address] * Vancomycin Level, Random (05/14/2024 5:01 AM EDT) Vancomycin, Random 13.5 mg/L [facility] Comment: This level is for determination of the patient's vancomycin ipwd-eeoyg-vjr-curve (AUC) value. Contact the inpatient pharmacy for interpretation. Blood 05/14/2024 5:01 AM EDT 05/14/2024 6:02 AM EDT Treva Diaz MD CHEMISTRY ORDERABL ES Performing Organization Address [facility] Co de Phone Number [facility] [place] [address] * POCT Glucose (05/13/2024 8:41 PM EDT) Glucose, POC 179 65 - 199 mg/dL [facility] Comment: Supplemental ranges: <140 mg/dL before meals <180 mg/dL all other times of the day Blood 05/13/2024 8:41 PM EDT 05/13/2024 8:41 PM EDT Treva Diaz MD POINT OF CARE TEST ORDERABLES Performing Organization Address [facility] Co de Phone Number [facility] [place] [address] * POCT Glucose (05/13/2024 6:06 PM EDT) Glucose, POC 135 65 - 199 mg/dL [facility] Comment: Supplemental ranges: <140 mg/dL before meals <180 mg/dL all other times of the day Blood 05/13/2024 6:06 PM EDT 05/13/2024 6:06 PM EDT Treva Diaz MD POINT OF CARE TEST ORDERABLES [facility] [place] [address] * POCT Glucose (05/13/2024 11:12 AM EDT) Glucose, POC 163 65 - 199 mg/dL [facility] Comment: Supplemental ranges: <140 mg/dL before meals <180 mg/dL all other times of the day Blood 05/13/2024 11:1 2 AM EDT 05/13/2024 11:12 AM EDT Treva Diaz MD POINT OF CARE TEST ORDERABLES Performing Organization Address City/[facility]/ZIP Co de Phone Number [facility] [place] [address] * POCT Glucose (05/13/2024 7:47 AM EDT) Glucose, POC 194 65 - 199 mg/dL [facility] Comment: Supplemental ranges: <140 mg/dL before meals <180 mg/dL all other times of the day Blood 05/13/2024 7:47 AM EDT 05/13/2024 7:47 AM EDT Treva Diaz MD POINT OF CARE TEST ORDERABLES Performing Organization Address City/[facility]/ZIP Co de Phone Number [facility] [place] [address] * Scan, Peripheral Blood (05/13/2024 5:29 AM EDT) Plat estimate Normal [facility] RBC Morphology Abnormal [facility] Sofía Cells 1-5 /HPF [facility] Plat, Giant Less than 1 /HPF [facility] Blood 05/13/2024 5:29 AM EDT 05/13/2024 5:49 AM EDT Narrative Resulting Agency Comment Spec In Lab Carlotta Davis MD HEMATOLOGY OR DERABLES Performing Organization Address City/State/[facility] Co de Phone Number [facility] [place] [address] * (ABNORMAL) Differential, Automated (05/13/2024 5:29 AM EDT) Neutrophil % 81.8 % [facility] Neutrophil Absolute 12.66(H) 1.70 - 6.10 x10(3)/mc L [facility] Lymph % 5.0 % [facility] Lymphocytes Abs 0.8(L) 0.9 - 3.2 x10(3)/mc L [facility] Monocyte % 12.3 % [facility] Monocyte Abs 1.9(H) 0.3 - 0.9 x10(3)/mc L [facility] Eos % 0.2 % [facility] Eosinophils Abs 0.0 0.0 - 0.4 x10(3)/mc L [facility] Basophil % 0.1 % [facility] Baso Absolute 0.0 0.0 - 0.1 x10(3)/mc L [facility] Immature Gran % 0.60 % [facility] Comment: Immature granulocytes(IG's)percentage and absolute count will include metamyelocytes, myelocytes, and promyelocytes. Blood smears from CBCs yielding IG's will be scanned manually for concordance. If this scan disagrees with the automated IG or if promyelocytes are noted, a manual differential will be performed. Immature Gran Absolute 0.09(H) 0.00 - 0.04 x10(3)/mc L [facility] Blood 05/13/2024 5:29 AM EDT 05/13/2024 5:49 AM EDT Narrative Resulting Agency Comment Spec In Lab Carlotta Davis MD HEMATOLOGY OR DERABLES [facility] [place] [place] [address] * (ABNORMAL) Hemogram (05/13/2024 5:29 AM EDT) White Blood Cell 15.5(H) 4.0 - 9.5 x10(3)/ L [facility] Red Blood Cell 3.64(L) 4.58 - 5.54 x10(6)/ L [facility] Hemoglobin 10.9(L) 13.7 - 16.5 g/dL [facility] Hematocrit 33.3(L) 40.5 - 48.5 % [facility] Mean Cell Volume 91.5 82.9 - 93.1 fL [facility] Mean Cell Hemoglobin 29.9 27.5 - 32.1 pg [facility] Mean Cell Hemoglobin Concentration 32.7 32.0 - 35.7 g/dL [facility] Platelet 186 145 - 357 x10(3)/mc L [facility] RDW Standard Deviation 53.0(H) 36.0 - 45.0 fL [facility] RDW coefficient of variation 15.8(H) 11.4 - 13.8 % [facility] Mean Platelet Volume 11.8 7.6 - 12.9 fL [facility] NRBC% auto 0.0 % [facility] NRBC Absolute 0.000 0.000 - 0.000 x10(3)/ L [facility] Blood 05/13/2024 5:29 AM EDT 05/13/2024 5:49 AM EDT Narrative Resulting Agency Comment Spec In Lab Carlotta Davis MD HEMATOLOGY OR DERABLES Performing Organization Address City/[facility]/ZIP Co de Phone Number [facility] [address] * Magnesium (05/13/2024 5:29 AM EDT) Pathologist [facility] Magnesium 0.99 0.69 - 1.07 mmol/L [facility] Blood 05/13/2024 5:29 AM EDT 05/13/2024 5:49 AM EDT Narrative Resulting Agency Comment Spec In Lab Mary De La Fuente MD CHEMISTRY ORDERABL ES Performing Organization Address [facility]/ZIP Co de Phone Number [facility] [place] [address] * Phosphorus (05/13/2024 5:29 AM EDT) [facility] Phosphorus 2.7 2.5 - 4.5 mg/dL [facility] Blood 05/13/2024 5:29 AM EDT 05/13/2024 5:49 AM EDT Narrative Resulting Agency Comment Spec In Lab Mary De La Fuente MD CHEMISTRY ORDERABL ES Performing Organization Address [facility] Co de Phone Number [facility] [place] [address] * (ABNORMAL) Basic Metabolic Panel (non-fasting) (05/13/2024 5:29 AM EDT) [facility] Glucose 166 65 - 199 mg/dL [facility] Comment:Diabetes: >=200 mg/d L plus symptoms Blood Urea Nitrogen 57(H) 10 - 20 mg/dL [facility] Creatinine 1.53(H) 0.80 - 1.50 mg/dL [facility] Sodium 137 135 - 145 mmol/L [facility] Potassium 4.4 3.5 - 5.0 mmol/L [facility] Comment: Please note: ??Patients with WBC >100,000 may have falsely elevated Potassium levels. ??For accurate Potassium quantification in these patients send serum separator tube (gold top) for subsequent determinations. ??Contact the Clinical Chemistry Laboratory if there are any questions. Chloride 104 98 - 107 mmol/L [facility] Carbon Dioxide 24 22 - 31 mmol/L [facility] Anion Gap 9 5 - 15 mmol/L [facility] Calcium 8.7 8.5 - 10.5 mg/dL [facility] Est Glomerular Filtration Rate 49(L) >=60 mL/min/1. 73 m?? [facility] Comment: This patient's [...] De La Fuente MD CHEMISTRY ORDERABL ES [facility] [place] [address] * POCT Glucose (05/12/2024 11:46 PM EDT) Glucose, POC 165 65 - 199 mg/dL [facility] Comment: Supplemental ranges: <140 mg/dL before meals <180 mg/dL all other times of the day Blood 05/12/2024 11:4 6 PM EDT 05/12/2024 11:46 PM EDT Treva Diaz MD POINT OF CARE TEST ORDERABLES [facility] [place] [address] * POCT Glucose (05/12/2024 8:36 PM EDT) Glucose, POC 164 65 - 199 mg/dL [facility] Comment: Supplemental ranges: <140 mg/dL before meals <180 mg/dL all other times of the day Blood 05/12/2024 8:36 PM EDT 05/12/2024 8:36 PM EDT Treva Diaz MD POINT OF CARE TEST ORDERABLES Performing Organization Address City/[facility]/ZIP Co de Phone Number [facility] [place] [address] * POCT Glucose (05/12/2024 5:38 PM EDT) Glucose, POC 175 65 - 199 mg/dL [facility] Comment: Supplemental ranges: <140 mg/dL before meals <180 mg/dL all other times of the day Blood 05/12/2024 5:38 PM EDT 05/12/2024 5:38 PM EDT Treva Diaz MD POINT OF CARE TEST ORDERABLES Performing Organization Address [facility]/ZIP Co de Phone Number [facility] [place] [address] * Vancomycin Level, Random (05/12/2024 2:10 PM EDT) Vancomycin, Random 22.3 mg/L [facility] Comment: This level is for determination of the patient's vancomycin tpwk-hatco-eye-curve (AUC) value. Contact the inpatient pharmacy for interpretation. Blood 05/12/2024 2:10 PM EDT 05/12/2024 2:23 PM EDT Treva Diaz MD CHEMISTRY ORDERABL ES Performing Organization Address City/[facility]/ZIP Co de Phone Number [facility] [place] [address] * POCT Glucose (05/12/2024 1:42 PM EDT) Glucose, POC 168 65 - 199 mg/dL [facility] Comment: Supplemental ranges: <140 mg/dL before meals <180 mg/dL all other times of the day Blood 05/12/2024 1:42 PM EDT 05/12/2024 1:42 PM EDT Treva Diaz MD POINT OF CARE TEST ORDERABLES [facility] [place] [address] * Duplex for DVT, Leg, Unilat (05/12/2024 10:19 AM EDT) VB Text Report Department: Vascular Surgery Lab Patient: [id number] (JOSSY SHANKS) CPT: 40756 Referring Physician: MARY DE LA FUENTE ?? [...] Glucose, POC 161 65 - 199 mg/dL [facility] Comment: Supplemental ranges: <140 mg/dL before meals <180 mg/dL all other times of the day Blood 05/12/2024 9:00 AM EDT 05/12/2024 9:00 AM EDT Treva Diaz MD POINT OF CARE TEST ORDERABLES Performing Organization Address [facility] Co de Phone Number [facility] [place] [address] * (ABNORMAL) Sedimentation rate (05/12/2024 4:45 AM EDT) [facility] Sedimentation Rate Automated >119(H) 3 - 46 mm/hr [facility] Comment: Effective September [...] MD HEMATOLOGY ORDERABLE S Performing Organization Address [facility] Co de Phone Number [facility] [place] [address] * (ABNORMAL) CRP, acute inflammation (05/12/2024 4:45 AM EDT) [facility] C-Reactive Protein 152.4(H) <=4.9 mg/L [facility] Blood Venous Draw / Unknown 05/12/2024 4:45 AM EDT 05/12/2024 5:12 AM EDT Narrative Resulting Agency Comment Spec In Lab Juan José Harrison MD CHEMISTRY ORDERABLES Performing Organization Address [facility] Co de Phone Number [facility] [place] [address] * (ABNORMAL) Differential, Automated (05/12/2024 4:45 AM EDT) [facility] Neutrophil % 87.9 % [facility] Neutrophil Absolute 17.31(H) 1.70 - 6.10 x10(3)/mc L [facility] Lymph % 3.9 % [facility] Lymphocytes Abs 0.8(L) 0.9 - 3.2 x10(3)/[facility] Monocyte % 7.4 % [facility] Monocyte Abs 1.4(H) 0.3 - 0.9 x10(3)/[facility] Eos % 0.0 % [facility] Eosinophils Abs 0.0 0.0 - 0.4 x10(3)/[facility] Basophil % 0.1 % [facility] Baso Absolute 0.0 0.0 - 0.1 x10(3)/[facility] Immature Gran % 0.70 % [facility] Comment: Immature granulocytes(IG's)percentage and absolute count will include metamyelocytes, myelocytes, and promyelocytes. Blood smears from CBCs yielding IG's will be scanned manually for concordance. If this scan disagrees with the automated IG or if promyelocytes are noted, a manual differential will be performed. Immature Gran Absolute 0.14(H) 0.00 - 0.04 x10(3)/[facility] Blood 05/12/2024 4:45 AM EDT 05/12/2024 5:06 AM EDT Narrative Resulting Agency Comment Spec In Lab Carlotta Davis MD HEMATOLOGY OR DERABLES [facility] [place] [address] * (ABNORMAL) Hemogram (05/12/2024 4:45 AM EDT) White Blood Cell 19.7(H) 4.0 - 9.5 x10(3)/[facility] Red Blood Cell 3.58(L) 4.58 - 5.54 x10(6)/[facility] Hemoglobin 10.9(L) 13.7 - 16.5 g/dL [facility] Hematocrit 33.1(L) 40.5 - 48.5 % [facility] Mean Cell Volume 92.5 82.9 - 93.1 fL [facility] Mean Cell Hemoglobin 30.4 27.5 - 32.1 pg [facility] Mean Cell Hemoglobin Concentration 32.9 32.0 - 35.7 g/dL [facility] Platelet 165 145 - 357 x10(3)/mc L [facility] RDW Standard Deviation 53.2(H) 36.0 - 45.0 fL [facility] RDW coefficient of variation 15.7(H) 11.4 - 13.8 % [facility] Mean Platelet Volume 12.1 7.6 - 12.9 [facility] NRBC% auto 0.0 % [facility] NRBC Absolute 0.000 0.000 - 0.000 x10(3)/mc L [facility] Blood 05/12/2024 4:45 AM EDT 05/12/2024 5:06 AM EDT Narrative Resulting Agency Comment Spec In Lab Carlotta Davis MD HEMATOLOGY OR DERABLES Performing Organization Address [facility]/ZIP Co de Phone Number [facility] [address] * Magnesium (05/12/2024 4:45 AM EDT) Magnesium 1.07 0.69 - 1.07 mmol/L [facility] Blood 05/12/2024 4:45 AM EDT 05/12/2024 5:06 AM EDT Narrative Resulting Agency Comment Spec In Lab Mary De La Fuente MD CHEMISTRY ORDERABL ES Performing Organization Address City/[facility]/ZIP Co de Phone Number [facility] [address] * Phosphorus (05/12/2024 4:45 AM EDT) Phosphorus 2.7 2.5 - 4.5 mg/dL [facility] Blood 05/12/2024 4:45 AM EDT 05/12/2024 5:06 AM EDT Narrative Resulting Agency Comment Spec In Lab Mary De La Fuente MD CHEMISTRY ORDERABL ES [facility] [place] [address] * (ABNORMAL) Basic Metabolic Panel (non-fasting) (05/12/2024 4:45 AM EDT) Glucose 156 65 - 199 mg/dL [facility] Comment:Diabetes: >=200 mg/d L plus symptoms Blood Urea Nitrogen 72(H) 10 - 20 mg/dL [facility] Creatinine 2.03(H) 0.80 - 1.50 mg/dL [facility] Sodium 135 135 - 145 mmol/L [facility] Potassium 4.5 3.5 - 5.0 mmol/L [facility] Comment: Please note: ??Patients with WBC >100,000 may have falsely elevated Potassium levels. ??For accurate Potassium quantification in these patients send serum separator tube (gold top) for subsequent determinations. ??Contact the Clinical Chemistry Laboratory if there are any questions. Chloride 101 98 - 107 mmol/L [facility] Carbon Dioxide 24 22 - 31 mmol/L [facility] Anion Gap 10 5 - 15 mmol/L [facility] Calcium 8.4(L) 8.5 - 10.5 mg/dL [facility] Est Glomerular Filtration Rate 35(L) >=60 mL/min/1. 73 m?? [facility] Comment: This patient's [...] De La Fuente MD CHEMISTRY ORDERABL ES [facility] [place] [address] * ANGY, legs, multiple levels (05/12/2024 3:22 AM EDT) VB Text Report Department: Vascular Surgery Lab Patient: [id number] (JOSSY SHANKS) CPT: 23491 Referring Physician: THO DICKSON ?? Phone: Indications: [...] MD VASCULAR ORDERABLE S Performing Organization Address City/State/[facility] Co de Phone Number [facility] * (ABNORMAL) POCT Glucose (05/11/2024 8:14 PM EDT) Glucose, POC 201(H) 65 - 199 mg/dL [facility] Comment: Supplemental ranges: <140 mg/dL before meals <180 mg/dL all other times of the day Blood 05/11/2024 8:14 PM EDT 05/11/2024 8:14 PM EDT Treva Diaz MD POINT OF CARE TEST ORDERABLES Performing Organization Address [facility] de Phone Number [facility] [place] [address] * Vancomycin Level, Random (05/11/2024 8:10 PM EDT) Vancomycin, Random 21.7 mg/L [facility] Comment: This level is for determination of the patient's vancomycin gvbm-fgkdc-qdu-curve (AUC) value. Contact the inpatient pharmacy for interpretation. Blood 05/11/2024 8:10 PM EDT 05/11/2024 8:32 PM EDT Treva Diaz MD CHEMISTRY ORDERABL ES Performing Organization Address [facility] de Phone Number [facility] [place] [address] * POCT Glucose (05/11/2024 4:34 PM EDT) Glucose, POC 197 65 - 199 mg/dL [facility] Comment: Supplemental ranges: <140 mg/dL before meals <180 mg/dL all other times of the day Blood 05/11/2024 4:34 PM EDT 05/11/2024 4:34 PM EDT Treva Diaz MD POINT OF CARE TEST ORDERABLES Performing Organization Address [facility] Co de Phone Number [facility] [place] [address] * (ABNORMAL) POCT Glucose (05/11/2024 11:47 AM EDT) Glucose, POC 255(H) 65 - 199 mg/dL [facility] Comment: Supplemental ranges: <140 mg/dL before meals <180 mg/dL all other times of the day Blood 05/11/2024 11:4 7 AM EDT 05/11/2024 11:47 AM EDT Treva Diaz MD POINT OF CARE TEST ORDERABLES [facility] [place] [address] * (ABNORMAL) POCT Glucose (05/11/2024 6:57 AM EDT) Glucose, POC 200(H) 65 - 199 mg/dL [facility] Comment: Supplemental ranges: <140 mg/dL before meals <180 mg/dL all other times of the day Blood 05/11/2024 6:57 AM EDT 05/11/2024 6:57 AM EDT Treva Diaz MD POINT OF CARE TEST ORDERABLES [facility] [place] [address] * (ABNORMAL) Differential, Automated (05/11/2024 2:00 AM EDT) Neutrophil % 85.8 % [facility] Neutrophil Absolute 22.16(H) 1.70 - 6.10 x10(3)/mc L [facility] [facility] Lymph % 1.5 % [facility] Lymphocytes Abs 0.4(L) 0.9 - 3.2 x10(3)/mc L [facility] Monocyte % 4.9 % [facility] Monocyte Abs 1.3(H) 0.3 - 0.9 x10(3)/[facility] Eos % 0.0 % [facility] Eosinophils Abs 0.0 0.0 - 0.4 x10(3)/[facility] Basophil % 0.1 % [facility] Baso Absolute 0.0 0.0 - 0.1 x10(3)/[facility] Immature Gran % 7.70 % [facility] Comment: Immature granulocytes(IG's)percentage and absolute count will include metamyelocytes, myelocytes, and promyelocytes. Blood smears from CBCs yielding IG's will be scanned manually for concordance. If this scan disagrees with the automated IG or if promyelocytes are noted, a manual differential will be performed. Immature Gran Absolute 1.98(H) 0.00 - 0.04 x10(3)/[facility] Blood 05/11/2024 2:00 AM EDT 05/11/2024 2:07 AM EDT Narrative Resulting Agency Comment Spec In Lab Carlotta Davis MD HEMATOLOGY OR DERABLES Performing Organization Address City/State/[facility] Co de Phone Number [facility] [address] * (ABNORMAL) Hemogram (05/11/2024 2:00 AM EDT) White Blood Cell 25.8(H) 4.0 - 9.5 x10(3)/[facility] Red Blood Cell 3.64(L) 4.58 - 5.54 x10(6)/[facility] Hemoglobin 10.9(L) 13.7 - 16.5 g/dL [facility] Hematocrit 32.5(L) 40.5 - 48.5 % [facility] Mean Cell Volume 89.3 82.9 - 93.1 fL [facility] Mean Cell Hemoglobin 29.9 27.5 - 32.1 pg [facility] Mean Cell Hemoglobin Concentration 33.5 32.0 - 35.7 g/dL [facility] Platelet 141(L) 145 - 357 x10(3)/mc L [facility] RDW Standard Deviation 51.2(H) 36.0 - 45.0 fL [facility] RDW coefficient of variation 15.6(H) 11.4 - 13.8 % [facility] Mean Platelet Volume 12.9 7.6 - 12.9 fL [facility] NRBC% auto 0.0 % [facility] NRBC Absolute 0.000 0.000 - 0.000 x10(3)/mc L [facility] Blood 05/11/2024 2:00 AM EDT 05/11/2024 2:07 AM EDT Narrative Resulting Agency Comment Spec In Lab Carlotta Davis MD HEMATOLOGY OR DERABLES [facility] [address] * Magnesium (05/11/2024 2:00 AM EDT) Magnesium 1.01 0.69 - 1.07 mmol/L [facility] Blood 05/11/2024 2:00 AM EDT 05/11/2024 2:07 AM EDT Narrative Resulting Agency Comment Spec In Lab Mary De La Fuente MD CHEMISTRY ORDERABL ES Performing Organization Address City/[facility]/ZIP Co de Phone Number [facility] [address] * Phosphorus (05/11/2024 2:00 AM EDT) Phosphorus 4.0 2.5 - 4.5 mg/dL [facility] Blood 05/11/2024 2:00 AM EDT 05/11/2024 2:07 AM EDT Narrative Resulting Agency Comment Spec In Lab Mary De La Fuente MD CHEMISTRY ORDERABL ES [facility] [address] * (ABNORMAL) Basic Metabolic Panel (non-fasting) (05/11/2024 2:00 AM EDT) Glucose 212(H) 65 - 199 mg/dL [facility] Comment:Diabetes: >=200 mg/d L plus symptoms Blood Urea Nitrogen 72(H) 10 - 20 mg/dL [facility] Creatinine 2.58(H) 0.80 - 1.50 mg/dL [facility] Comment:result rechecked-HN Sodium 136 135 - 145 mmol/L [facility] Potassium 4.7 3.5 - 5.0 mmol/L [facility] Comment: Please note: ??Patients with WBC >100,000 may have falsely elevated Potassium levels. ??For accurate Potassium quantification in these patients send serum separator tube (gold top) for subsequent determinations. ??Contact the Clinical Chemistry Laboratory if there are any questions. Chloride 100 98 - 107 mmol/L [facility] Carbon Dioxide 24 22 - 31 mmol/L [facility] Anion Gap 12 5 - 15 mmol/L [facility] Calcium 8.3(L) 8.5 - 10.5 mg/dL [facility] Est Glomerular Filtration Rate 26(L) >=60 mL/min/1. 73 m?? [facility] Comment: This patient's [...] MD CHEMISTRY ORDERABL ES Performing Organization Address [facility] Co de Phone Number [facility] [address] * Vancomycin Level, Random (05/11/2024 2:00 AM EDT) Vancomycin, Random 21.4 mg/L [facility] Comment: This level is for determination of the patient's vancomycin nzql-hfezh-fvn-curve (AUC) value. Contact the inpatient pharmacy for interpretation. Blood 05/11/2024 2:00 AM EDT 05/11/2024 2:07 AM EDT Mary De La Fuente MD CHEMISTRY ORDERABL ES Performing Organization Address [facility] Co de Phone Number [facility] [address] * (ABNORMAL) POCT Glucose (05/10/2024 11:40 PM EDT) Glucose, POC 230(H) 65 - 199 mg/dL [facility] Comment: Supplemental ranges: <140 mg/dL before meals <180 mg/dL all other times of the day Blood 05/10/2024 11:4 0 PM EDT 05/10/2024 11:40 PM EDT Treva Diaz MD POINT OF CARE TEST ORDERABLES Performing Organization Address [facility] Co de Phone Number [facility] [address] * POCT Glucose (05/10/2024 4:09 PM EDT) Glucose, POC 189 65 - 199 mg/dL [facility] Comment: Supplemental ranges: <140 mg/dL before meals <180 mg/dL all other times of the day Blood 05/10/2024 4:09 PM EDT 05/10/2024 4:09 PM EDT Treva Diaz MD POINT OF CARE TEST ORDERABLES Performing Organization Address City/[facility] Co de Phone Number [facility] [place] [address] * POCT Glucose (05/10/2024 12:11 PM EDT) Glucose, POC 185 65 - 199 mg/dL [facility] Comment: Supplemental ranges: <140 mg/dL before meals <180 mg/dL all other times of the day Blood 05/10/2024 12:1 1 PM EDT 05/10/2024 12:11 PM EDT Mary De La Fuente MD POINT OF CARE TEST ORDERABLES Performing Organization Address [facility] Co de Phone Number [facility] [place] [address] * Vancomycin Level, Random (05/10/2024 12:00 PM EDT) Vancomycin, Random 15.5 mg/L [facility] Comment: This level is for determination of the patient's vancomycin fwyp-kpbow-ggj-curve (AUC) value. Contact the inpatient pharmacy for interpretation. Blood 05/10/2024 12:0 0 PM EDT 05/10/2024 12:21 PM EDT Tho Dickson MD CHEMISTRY ORDERABLES Performing Organization Address City/[facility] Co de Phone Number [facility] [address] * POCT Glucose (05/10/2024 8:09 AM EDT) Glucose, POC 195 65 - 199 mg/dL [facility] Comment: Supplemental ranges: <140 mg/dL before meals <180 mg/dL all other times of the day Blood 05/10/2024 8:09 AM EDT 05/10/2024 8:09 AM EDT Mary De La Fuente MD POINT OF CARE TEST ORDERABLES Performing Organization Address City/[facility]/ZIP Co de Phone Number [facility] [address] * CK (05/10/2024 6:55 AM EDT) Creatine Kinase 58 0 - 200 unit/L [facility] Blood Venous Draw / Unknown 05/10/2024 6:55 AM EDT 05/10/2024 7:41 AM EDT Narrative Resulting Agency Comment Spec In Lab Emmanuel Corey DO CHEMISTRY ORDERABLES Performing Organization Address [facility] Co de Phone Number [facility] [place] [address] * (ABNORMAL) Phosphorus (05/10/2024 6:55 AM EDT) Phosphorus 5.1(H) 2.5 - 4.5 mg/dL [facility] Blood 05/10/2024 6:55 AM EDT 05/10/2024 6:59 AM EDT Narrative Resulting Agency Comment Spec In Lab Tho Dickson MD CHEMISTRY ORDERABLES Performing Organization Address [facility] Co de Phone Number [facility] [place] [address] * (ABNORMAL) Basic Metabolic Panel (non-fasting) (05/10/2024 6:55 AM EDT) Glucose 193 65 - 199 mg/dL [facility] Comment:Diabetes: >=200 mg/d L plus symptoms Blood Urea Nitrogen 69(H) 10 - 20 mg/dL [facility] Creatinine 3.75(H) 0.80 - 1.50 mg/dL [facility] Sodium 128(L) 135 - 145 mmol/L [facility] Potassium 5.0 3.5 - 5.0 mmol/L [facility] Comment: Please note: ??Patients with WBC >100,000 may have falsely elevated Potassium levels. ??For accurate Potassium quantification in these patients send serum separator tube (gold top) for subsequent determinations. ??Contact the Clinical Chemistry Laboratory if there are any questions. Chloride 93(L) 98 - 107 mmol/L [facility] Carbon Dioxide 23 22 - 31 mmol/L [facility] Anion Gap 12 5 - 15 mmol/L [facility] Calcium 8.6 8.5 - 10.5 mg/dL [facility] Est Glomerular Filtration Rate 17(L) >=60 mL/min/1. 73 m?? [facility] Comment: This patient's [...] In Lab Tho Dickson MD CHEMISTRY ORDERABLES [facility] [place] [address] * Lactate, whole blood, send to lab ([facility]) (05/10/2024 6:55 AM EDT) Lactate WB 1.7 0.5 - 2.2 mmol/L [facility] Blood 05/10/2024 6:55 AM EDT 05/10/2024 7:00 AM EDT Narrative Resulting Agency Comment Spec In Lab Tho Dickson MD CHEMISTRY ORDERABLES [facility] [place] [address] * MRI Foot wwo Contrast Right (05/10/2024 5:51 AM EDT) WORKSTATION ID [id number] RAD Anatomical Region Laterality Modality Foot Right [...] who have questions please contact the health adult care provider that requested your imaging first. [...] patients who have questions please contactthe health adult care provider that requested your imaging first. Tho Dickson MD IM MRI ORDERABLES * Creatinine, urine, random (05/10/2024 4:15 AM EDT) Creatinine, Urine 106 mg/dL [facility] Urine 05/10/2024 4:15 AM EDT 05/10/2024 4:23 AM EDT Narrative Resulting Agency Comment Spec In Lab Tho Dickson MD URINE ORDERABLES [facility] [place] [address] * Sodium, urine, random (05/10/2024 4:15 AM EDT) Sodium, Urine <20 mmol/L [facility] Urine 05/10/2024 4:15 AM EDT 05/10/2024 4:23 AM EDT Narrative Resulting Agency Comment Spec In Lab Tho Dickson MD URINE ORDERABLES Performing Organization Address City/[facility]/ZIP Co de Phone Number [facility] [place] [address] * Urea nitrogen, urine, random (05/10/2024 4:15 AM EDT) Urea Nitrogen, Urine 580 mg/dL [facility] Urine 05/10/2024 4:15 AM EDT 05/10/2024 4:23 AM EDT Narrative Resulting Agency Comment Spec In Lab Tho Dickson MD URINE ORDERABLES Performing Organization Address [facility] Co de Phone Number [facility] [address] * (ABNORMAL) Skin/Superficial Wound Culture Toe (05/10/2024 2:56 AM EDT) Skin/Superfic ial Wound Culture Rare mixed bacterial morphotypes suggestive of normal cutaneous armani including Rare Gram Negative Rods (A) [facility] Gram Stain Many Neutrophils seen Few Gram Positive Cocci seen (A) [facility] Organism Gram Negative Rods(A) [facility] Organism Gram Positive Cocci(A) [facility] Superficial Wound TOE STRUCTURE / Unknown 05/10/2024 2:56 AM EDT 05/10/2024 5:18 AM EDT Comment:Right toe wound Narrative Resulting Agency Comment Spec In Lab Tho Dickson MD MICROBIOLOGY - GENER AL ORDERABLES Performing Organization Address [facility]/ZIP Co de Phone Number [facility] [place] [address] * (ABNORMAL) Urinalysis without microscopic (05/10/2024 2:42 AM EDT) Glucose, Urine Dipstick Negative Negative mg/dL [facility] Protein, Urine Dipstick 30(A) Negative mg/dL [facility] Bilirubin, Urine Dipstick Negative Negative mg/dL [facility] Comment: Clinical correlation required for positive Urine Bilirubin results as false positive may occur with some drugs and drug related products. If a false positive is suspected a serum total bilirubin should be considered if clinically indicated. Urobilinogen, Urine Dipstick Normal Normal mg/dL [facility] pH, Urn (dipstick) 5.5 5.0 - 8.0 [facility] Blood, Urine Dipstick Large(A) Negative mg/dL [facility] Ketone, Urine Dipstick Negative Negative mg/dL [facility] Nitrite, Urine Dipstick Negative Negative [facility] Leukocytes, Urine Dipstick Small(A) Negative [facility] Appearance, Urine Dipstick Cloudy(A) Clear [facility] Specific [place] Urine Automated 1.017 1.005 - 1.030 [facility] Color, Urine Dipstick [place](A) Yellow [facility] Urine 05/10/2024 2:42 AM EDT 05/10/2024 2:57 AM EDT Narrative Resulting Agency Comment Spec In Lab Tho Dickson MD URINE ORDERABLES [facility] [place] [address] * XR Chest One View (05/10/2024 2:37 AM EDT) WORKSTATION ID [id number] RAD Anatomical Region Laterality Modality Chest N/A Digital Radiogra phy Impressions 05/10/2024 3:27 AM EDT Bibasilar atelectasis. Thank you for letting us participate in the care of this patient. ??If you are a health care provider and have any questions regarding this report, please contact the number below. ??For patients who have questions please contact the health adult care provider that requested your imaging first. [...] patients who have questions please contactthe health adult care provider that requested your imaging first. Tho Dickson MD IMG DX ORDERABLES * Blood culture (05/10/2024 2:32 AM EDT) [facility] Blood Culture No growth at 5 days. [facility] Blood STRUCTURE OF RIGHT HAND / Unknown 05/10/2024 2:32 AM EDT 05/10/2024 4:17 AM EDT Narrative Resulting Agency Comment Spec In Lab Tho Dickson MD MICROBIOLOGY - BLOOD ORDERABLES Performing Organization Address City/[facility]/ZIP Co de Phone Number [facility] [place] [address] * (ABNORMAL) POCT Glucose (05/10/2024 2:30 AM EDT) [facility] Glucose, POC 201(H) 65 - 199 mg/dL [facility] Comment: Supplemental ranges: <140 mg/dL before meals <180 mg/dL all other times of the day Blood 05/10/2024 2:30 AM EDT 05/10/2024 2:30 AM EDT Tho Dickson MD POINT OF CARE TEST O RDERABLES Performing Organization Address [facility] Co de Phone Number [facility] [place] [address] * Vancomycin Level, Random (05/10/2024 2:20 AM EDT) [facility] Vancomycin, Random 26.9 mg/L [facility] Comment: This level is for determination of the patient's vancomycin kusi-zmdgy-esb-curve (AUC) value. Contact the inpatient pharmacy for interpretation. Blood Venous Draw / Unknown 05/10/2024 2:20 AM EDT 05/10/2024 2:38 AM EDT Tho Dickson MD CHEMISTRY ORDERABLES Performing Organization Address City/[facility]/ZIP Co de Phone Number [facility] [place] [address] * Scan, Peripheral Blood (05/10/2024 2:20 AM EDT) Plat estimate Normal [facility] RBC Morphology Abnormal [facility] Ovalocytes 1-5 /HPF [facility] Sofaí Cells 1-5 /HPF [facility] Plat, Giant Less than 1 /HPF [facility] Blood 05/10/2024 2:20 AM EDT 05/10/2024 2:36 AM EDT Narrative Resulting Agency Comment Spec In Lab Anita Camacho MD HEMATOLOGY ORDERABLE S [facility] [place] [address] * Type and Screen Validity (05/10/2024 2:20 AM EDT) T&S only valid at [facility] Comment:This Type and Screen result is only valid at the [facility] Blood 05/10/2024 2:20 AM EDT 05/10/2024 2:49 AM EDT Narrative Resulting Agency Comment Spec In Lab Anita Camacho MD BLOOD BANK LAB ORDER ANGELIQUE Performing Organization Address City/[facility]/ZIP Co de Phone Number [facility] [place] [address] * ABORH Recheck Status (05/10/2024 2:20 AM EDT) AB[facility]H Recheck Order Order Placed [facility] ABORH Type Recheck Completed [facility] Blood 05/10/2024 2:20 AM EDT 05/10/2024 2:49 AM EDT Narrative Resulting Agency Comment Spec In Lab Anita Camacho MD BLOOD BANK LAB ORDER ANGELIQUE [facility] [place] [address] * (ABNORMAL) Differential, Automated (05/10/2024 2:20 AM EDT) Neutrophil % 89.2 % [facility] Neutrophil Absolute 25.39(H) 1.70 - 6.10 x10(3)/mc L [facility] Lymph % 1.2 % [facility] Lymphocytes Abs 0.4(L) 0.9 - 3.2 x10(3)/ L [facility] Monocyte % 2.9 % [facility] Monocyte Abs 0.8 0.3 - 0.9 x10(3)/ L [facility] Eos % 0.0 % [facility] Eosinophils Abs 0.0 0.0 - 0.4 x10(3)/[facility] Basophil % 0.2 % [facility] Baso Absolute 0.1 0.0 - 0.1 x10(3)/[facility] Immature Gran % 6.50 % [facility] Comment: Immature granulocytes(IG's)percentage and absolute count will include metamyelocytes, myelocytes, and promyelocytes. Blood smears from CBCs yielding IG's will be scanned manually for concordance. If this scan disagrees with the automated IG or if promyelocytes are noted, a manual differential will be performed. Immature Gran Absolute 1.85(H) 0.00 - 0.04 x10(3)/ L [facility] Blood 05/10/2024 2:20 AM EDT 05/10/2024 2:36 AM EDT Narrative Resulting Agency Comment Spec In Lab Anita Camacho MD HEMATOLOGY ORDERABLE S [facility] [place] [address] * (ABNORMAL) Hemogram (05/10/2024 2:20 AM EDT) White Blood Cell 28.5(H) 4.0 - 9.5 x10(3)/ L [facility] Red Blood Cell 3.83(L) 4.58 - 5.54 x10(6)/mc L [facility] Hemoglobin 11.4(L) 13.7 - 16.5 g/dL [facility] Hematocrit 34.5(L) 40.5 - 48.5 % [facility] Mean Cell Volume 90.1 82.9 - 93.1 fL [facility] Mean Cell Hemoglobin 29.8 27.5 - 32.1 pg [facility] Mean Cell Hemoglobin Concentration 33.0 32.0 - 35.7 g/dL [facility] Platelet 135(L) 145 - 357 x10(3)/mc L [facility] RDW Standard Deviation 51.9(H) 36.0 - 45.0 [facility] RDW coefficient of variation 15.6(H) 11.4 - 13.8 % [facility] Mean Platelet Volume 12.8 7.6 - 12.9 [facility] NRBC% auto 0.0 % [facility] NRBC Absolute 0.000 0.000 - 0.000 x10(3)/mc L [facility] Blood 05/10/2024 2:20 AM EDT 05/10/2024 2:36 AM EDT Narrative Resulting Agency Comment Spec In Lab Anita Camacho MD HEMATOLOGY ORDERABLE S Performing Organization Address City/State/[facility] Co de Phone Number [facility] [address] * (ABNORMAL) Hemoglobin A1c (05/10/2024 2:20 AM EDT) Hemoglobin A1c 5.9(H) 4.3 - 5.6 % [facility] Comment: Reference Range: [...] Mellitus, Diabetes Care 2013; 36: Suppl. 1, S67-76 Estimated Average Glucose See note mg/dL [facility] Comment: Estimated Average Glucose not appropriate for patients over 70 years of age. Blood 05/10/2024 2:20 AM EDT 05/10/2024 2:36 AM EDT Narrative Resulting Agency Comment Spec In Lab Tho Dickson MD CHEMISTRY ORDERABLES Performing Organization Address [facility] Co de Phone Number [facility] [address] * Hepatic Function Panel (05/10/2024 2:20 AM EDT) Protein, Total 7.6 6.1 - 8.0 g/dL [facility] Albumin 3.3 3.2 - 5.2 g/dL [facility] Aspartate Aminotransferase 21 0 - 39 unit/L [facility] Alanine Aminotransferase 19 0 - 55 unit/L [facility] Alkaline Phosphatase 42 40 - 130 unit/L [facility] Bilirubin, Total 0.5 0.2 - 1.3 mg/dL [facility] Bilirubin, Direct 0.2 0.0 - 0.3 mg/dL [facility] Blood 05/10/2024 2:20 AM EDT 05/10/2024 2:36 AM EDT Narrative Resulting Agency Comment Spec In Lab Tho Dickson MD CHEMISTRY ORDERABLES Performing Organization Address [facility] Co de Phone Number [facility] [address] * (ABNORMAL) Phosphorus (05/10/2024 2:20 AM EDT) Phosphorus 4.6(H) 2.5 - 4.5 mg/dL [facility] Blood 05/10/2024 2:20 AM EDT 05/10/2024 2:36 AM EDT Narrative Resulting Agency Comment Spec In Lab Tho Dickson MD CHEMISTRY ORDERABLES Performing Organization Address City/[facility] Co de Phone Number [facility] [address] * Magnesium (05/10/2024 2:20 AM EDT) Magnesium 0.85 0.69 - 1.07 mmol/L [facility] Blood 05/10/2024 2:20 AM EDT 05/10/2024 2:36 AM EDT Narrative Resulting Agency Comment Spec In Lab Tho Dickson MD CHEMISTRY ORDERABLES Performing Organization Address [facility] Co de Phone Number [facility] [place] [address] * (ABNORMAL) Basic Metabolic Panel (non-fasting) (05/10/2024 2:20 AM EDT) Glucose 196 65 - 199 mg/dL [facility] Comment:Diabetes: >=200 mg/d L plus symptoms Blood Urea Nitrogen 71(H) 10 - 20 mg/dL [facility] Creatinine 3.94(H) 0.80 - 1.50 mg/dL [facility] Sodium 129(L) 135 - 145 mmol/L [facility] Potassium 5.3(H) 3.5 - 5.0 mmol/L [facility] Comment: Please note: ??Patients with WBC >100,000 may have falsely elevated Potassium levels. ??For accurate Potassium quantification in these patients send serum separator tube (gold top) for subsequent determinations. ??Contact the Clinical Chemistry Laboratory if there are any questions. Chloride 93(L) 98 - 107 mmol/L [facility] Carbon Dioxide 24 22 - 31 mmol/L [facility] Anion Gap 12 5 - 15 mmol/L [facility] Calcium 8.5 8.5 - 10.5 mg/dL [facility] Est Glomerular Filtration Rate 16(L) >=60 mL/min/1. 73 m?? [facility] Comment: This patient's [...] Dickson MD CHEMISTRY ORDERABLES Performing Organization Address [facility] Co de Phone Number [facility] [place] [place] [address] * (ABNORMAL) Prothrombin Time (05/10/2024 2:20 AM EDT) Prothrombin Time 27.9(H) 9.4 - 12.5 sec [facility] International Normalization Ratio 2.5 [facility] Comment: An INR [...] MD HEMATOLOGY ORDERABLE S Performing Organization Address [facility]/ZIP Co de Phone Number [facility] [place] [address] * Type and screen ([facility]ARA) (05/10/2024 2:20 AM EDT) ABORH Type O POSITIVE [facility] Patient BB History Not Found [facility] Expires at 2451 on: 05-13-2024 [facility] Ab Screen Interp Negative [facility] Blood 05/10/2024 2:20 AM EDT 05/10/2024 2:20 AM EDT Narrative [facility] - 05/10/2024 2:20 AM EDT This Type and Screen result is only valid at the [facility] Resulting Agency Comment Spec In Lab Tho Dickson MD BLOOD BANK LAB ORDER ANGELIQUE [facility] [place] [address] * (ABNORMAL) Lactate, whole blood, send to lab ([facility]) (05/10/2024 2:20 AM EDT) Lactate WB 2.3(H) 0.5 - 2.2 mmol/L [facility] Blood 05/10/2024 2:20 AM EDT 05/10/2024 2:36 AM EDT Narrative Resulting Agency Comment Spec In Lab Tho Dickson MD CHEMISTRY ORDERABLES [facility] [place] [address] documented in this encounter Visit Diagnoses Diagnosis [...] on 05/24/24 at 0900, Until Discontinued, Routine gadoterate meglumine [...] DAILY, First dose (after last modification) on 05/12/24 at 0900, Until Discontinued, Routine Given 05/14/2024 [...] NIGHTLY, First dose (after last modification) on 05/11/24 at 2100, Until Discontinued, MEAL ASSOCIATED Give [...] TIMES DAILY BEFORE MEALS, First dose on 05/11/24 at 0730, Until Discontinued, CORRECTION BOLUS [1-4 [...] EVERY 4 HOURS SCHEDULED, First dose on [facility] 05/10/24 at 0400, Until Discontinued, CORRECTION BOLUS [...] 6 mg, Oral, NIGHTLY PRN, Starting on 05/12/24 at 1550, Until Sun05/23/24 at 1815, Insomnia, [...] over 4 Hours, Warning Vesicant/Irritant Medication Per visual c developer labeling, do not administer or Y-site with [...] over 4 Hours, Warning Vesicant/Irritant Medication Per visual c developer labeling, do not administer or Y-site with [...] Procedural area)1759 (MAR Unhold - Provider: Admin Adt)2110 (Given - Provider: Saima Quinteros, RN) 0832 (Given - Provider: Juan José Lai, JACKIE) cefTRIAXone (Rocephin) 2 g vial attach to sodium chloride 0.9% 50 mL Mini-Bag Plus 2 g, Intravenous, EVERY 24 HOURS, First dose on Sun05/14/24 at 1600, Until Discontinued, Administer over 30 Minutes, Indication for (Active or Suspected): Bone/Joint 171 (New Bag - Provider: Inez Boswell RN)1742 (Stopped - Provider: Yg Prince, JACKIE) 1318 [...] Pretty Ramirez RN)1300 (Given - Provider: Yg Prince, JACKIE)1712 (Given - Provider: Inez Boswell RN)2330 (Given - Provider: Alyssa Villalobos RN) 0534 (Given - Provider: Alyssa Villalobos RN)1246 (Given - Provider: Trice Zhao RN)1318 (DEC Hold - Provider: Admin Adt - Reason: Transfer to a Procedural area)175 (DEC Unhold - Provider: Admin Adt)1842 (Given - Provider: Trice Zhao RN) 0114 (Given - Provider: Saima Quinteros, RN)0600 (Given - Provider: Saima Quinteros, RN)1227 (Given - Provider: Juan José Lai, JACKIE) epoetin leah-epbx (Retacrit) injection 10,000 Units 10,000 Units, Subcutaneous, DAILY, 3 doses, First dose on Sun05/21/24 at 1800, Last dose on Sun05/23/24 at 0900, Routine, What is the indication of use? Chronic Kidney Disease (CKD) 2038 (Given - Provider: Alyssa Villalobos RN) 0900 (Due)1318 (MAR Hold - Provider: Admin Adt - [...] area)175 (DEC Unhold - Provider: Admin Adt) 0620 (Given - Provider: Saima Quinteros, JACKIE) furosemide (Lasix) tablet 40 mg 40 mg, Oral, DAILY, First dose (after last modification) on Sun05/24/24 at 0900, Until Discontinued, Routine insulin glargine-ygfn (Semglee) (100 unit/mL) subcutaneous injection vial 14 Units 14 Units, Subcutaneous, NIGHTLY, First dose (after last modification) on 05/19/24 at 2100, Until Discontinued, Routine 2040 (Given - Provider: Alyssa Villalobos RN) 131 [...] Provider: Trice Zhao RN - Reason: NPO)1318 (DEC Hold - Provider: Admin Adt - [...] HOURS, First dose (after last modification) on [place] 05/18/24 at 1430, Until Discontinued, Routine 0258 [...] Admin Adt)1843 (Given - Provider: Trice Zhao, JACKIE) 0030 (Not Given - Provider: Saima Quinteros, RN - Reason: Patient/family refused)0630 (Not Given - Provider: Saima Quinteros RN - Reason: Patient/family refused)1227 (Given - Provider: Juan José Lai, JACKIE) lactobacillus acidophilus capsule 1 capsule 1 capsule, [...] Provider: Admin Adt)2108 (Given - Provider: Saima Quinteros, JACKIE) pantoprazole EC (Protonix) tablet 40 mg 40 [...] Sky Shelton, JACKIE)1100 (Given - Provider: Sky Shelton, JACKIE) glucagon (Glucagen) (1 mg/mL) injection solution 1 [...] area)175 (DEC Unhold - Provider: Admin Adt) melatonin [...] Until Sun05/23/24 at 1815, Pain, Routine 1318 ([facility] Hold - Provider: Admin Adt - Reason: Transfer to a Procedural area)1758 ([facility] Unhold - Provider: Admin Adt) simethicone (Gas-X [...] documented as of this encounter 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
--- OUTSIDE RECORDS SUMMARY | 2024-06-19 16:35 | XMS_ITS | Encounter Summary ---
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
--- OUTSIDE RECORDS SUMMARY | 2024-06-19 16:35 | XMS_ITS | Encounter Summary ---
[place] [address] Care Team Providers Care Ampoule Sealer Name Role Phone None Primary Care Provider Unavailabl e Reason for Visit * Auth/Cert (Routine) Specialty Diagnoses / Procedures Referred By Contac t Referred To Contact Diagnoses Septic shock septiic shock Procedures ER Tho Aquino MD [facility] [place] [address] [facility] Referral ID Status Reason Start Date Expiration Date Visits Re quested Visits Authorized [id number] 1 1 Encounter Details Date Type Department Care Team (Late st Contact Info) Description 05/22/2024 1:00 PM EDT - 05/22/2024 1:30 PM EDT Surgery [place] [address] Jonn Mena MD [facility] [place] [address] EGD, UPPER GI ENDOSCOPY (WRVU 2.09) Social History Tobacco Use Types Packs/Day Years Used Date Smoking Tobacco: Former Cigarettes 14 0.7 S tarted: 2023 Smokeless Tobacco: Never Tobacco Cessation:Counseling Given: Not Answered Alcohol Use Standard Drinks/Week Comments Yes 0 (1 standard drink = 0.6 oz pur e alcohol) 3-4 PER [facility] Inpatient Questions Answer Date Recorded [...] Jossy Shanks Patient Age: 69 y.o. Language: Mongolian Race: White Ethnicity: Not nor Admit date: [...] below [ ] Infectious Disease follow scheduled 8/20 with projected end date IV abx 06/04. [...] please contact your inpatient physician through the [facility] Knitting Machine Operator Automatic . Issues afterhours and on weekends will [...] home oxygen, HFpEF, HTN who presented to [facility] for rt LE cellulitis, transferred to [facility] for septic shock. At end [...] knee. Fevers & chills for last 24hrs. [place] lightheaded, weak, & couldn't get out of [...] prior to OSH departure. On arrival to [facility]: HR 96, o2 sat mid [...] care, the same day as transfer to [facility]. On the general medicine floor, [...] border dressing. (Melgisorb Ag 6x6 PS # [id number]) (Melgisorb Ag 4x4 PS # [id number]) Sacrum/ischium: open to air, utilize Z-guard if [...] 05/10/2024 2:37 AM) Result Value WORKSTATION ID [id number] Impression Bibasilar atelectasis. Thank you for letting us participate in the care of this patient. If you are a health care provider and have any questions regarding this report, please contact the number below. For patients who have questions please contact the health caretaker grounds that requested your imaging first. Foot wwo Contrast Right (Exam End: 05/10/2024 5:51 AM) Result Value WORKSTATION ID [id number] Impression 1. Soft tissue irregularity of the [...] who have questions please contact the health caretaker grounds that requested your imaging first. Electronically signed by: Trinidad Mota MD, [facility] ([phone]), at 05/10/2024 12:56 PM US Retroperitoneal Complete (Exam End: 05/20/2024 10:36 AM) Result Value WORKSTATION ID [id number] Impression 1. Very limited exam secondary to [...] AM Electronically signed by: Teofilo Ruiz MD, [facility] ([phone]), at 05/20/2024 11:30 AM Thank you for letting us participate in the care of this patient. If you are a health care provider and have any questions regarding this report, please contact the number above. For patients who have questions, please contact the health caretaker grounds that requested your imaging first. Teofilo Ruiz, Staff Physician Electronically Signed Final Report 05/20/2024 11:36 am Pending Studies and Lab Data: Discharge Conditions/Prognosis: s/p Left 2nd toe amputation, recovering, requiring rehab. Back to baseline. Discharge to: [facility] Updated Allergies/ADRs: No Known Allergies Immunizations [...] Center 06/03/2024 2:00 PM Lu Mcfarland APRN [facility] ID [id number] [facility] 06/05/2024 4:00 PM Elkin Garcia MD [facility] ORTH 3C [facility] Your Discharge Medication List Your [...] as much as possible. Call your doctor ([phone]) if you develop: Fever greater than 100.5 Severe nausea or vomiting Increasing pain that is not controlled by pain medications Increasing redness, swelling, or drainage from incisions Change in sensation FOLLOW-UP APPOINTMENTS: 1. You will have follow-up appointments at [facility] as indicated below in Future Appointment and Orders. 2. You will need to have x-rays prior to your follow-up appointment listed below. Please come to Radiology, desk 3T, 1 hour BEFORE that appointment for these x-rays. Future Appointments Date Time Provider Department Center 06/03/2024 2:00 PM Lu Mcfarland APRN [facility] ID [id number] [facility] 06/05/2024 4:00 PM Elkin Garcia MD [facility] ORTH 3C [facility] If you have questions or [...] the day after the procedure, use an tgqy-vqc-ylcigyn spray to numb your throat. Sucking on [...] occurs, please contact your Doctor. Please call [phone] before 8pm Mon-Fri with problems, questions or concerns. If you call after 8pm or on weekends, call the Hospital at [phone] and ask to speak to the Behavioral Health Rn loans consultant and the pulley mortiser operator will contact that person for you. When should you call for help? Call [phone] anytime you think you may need emergency [...] any problems. Where can you learn more? [facility] View your After Visit Summary and more online at [email or web address] If you would like to provide feedback about your hospital experience, please call the Office of Patient and Family Relations at . If you have received this After Visit Summary in error, please immediately return it in person to the department, or notify the [facility] Privacy Office by calling toll free at between the hours of 8AM and 5PM to arrange for our retrieval of the documents at no cost to you. Content Version: 12.2 ?? [phone] [employer]. Care instructions adapted under license by [facility]. If you have questions about a medical condition or this instruction, always ask your healthcare professional. [employer] disclaims any warranty or liability for your [...] is during regular working hours, please call [phone]. If it is after 5 pm or a weekend or holiday, call [phone] and ask for the Solar Energy Sales Specialist loans consultant for Interventional Radiology. You have received medication [...] PM Lu Mcfarland APRN Infectious Disease at [facility] Arrive at: Log Haul Operator Area 5C [phone] 06/05/2024 4:00 PM Elkin Garcia MD Orthopaedics at [facility] Arrive at: Log Haul Operator Area 3C [phone] Future Orders Complete By Expires OPAT: Order / Recommendation for Post Discharge IV Antibiotic Management [MRH234 CPT(R)] As directed Process Instructions: If no progress note charted, please enter Clinical details in comments. Scheduling Instructions: Comments: - If this order was signed greater than 72 hours prior to [facility] discharge, please call to confirm the accuracy of this order. Please Fax all results to: OPAT Program Infectious Disease Section [facility], [place] [address] FAX: - After hours, please contact the Infectious Disease Physician loans consultant at . - Line care instructions - see flush/heparin orders. Facilities may follow organizational policies/practices regarding heparin. - detention for medication administration/supervisor wood crew and catheter care/maintenance authorized. HD Line care [...] draw labs every Sunday [facility] at [phone]. Please draw labs off PICC line. Please see OPAT order for lab draw details. Please RN visit for IV ABX teaching and ongoing assessment. Halfway for Medication Administration/Hookup and catheter care/maintenance: - [...] 05/20/2024 11:36 am) PATIENT INFO: ID #: [id number].O.B.: [birth year] (69 yrs)(M) Name: JOSSY SHANKS Visit Date: 05/20/2024 10:34 am PERFORMED BY: Attending: Teofilo Ruiz MD Resident: Trinidad Light MD Performed By: Lulu Shin RDMS Referred By: SABA SPEARS Location: [place] SERVICE(S) PROVIDED: URETRO - Retroperitoneal Complete - [id number] INDICATIONS: CKD, increase BUN TECHNIQUE/SCAN QUALITY: Scan [...] 11:30 AMElectronically signed by: Teofilo Ruiz MD, [facility] ([phone]), at 05/20/2024 11:30 AM Thank you for letting us participate in the care of this patient. If you are a health care provider and have any questions regarding this report, please contact the number above. For patients whohave questions, please contact the health caretaker grounds that requested your imaging first. Teofilo Ruiz, Staff Physician Electronically Signed Final Report 05/20/2024 11:36 am My clinical question: Patient to establish for CKD management Do not type below here [id number]_CKD Questions: My question or request is: See comment Provider Contact Information: None None None Discharge References/Attachments Low Phosphorus Foods: General Info (Mongolian) Low Potassium Foods: General Info (Mongolian) documented in this encounter Discharge Instructions * [...] the day after the procedure, use an ujdu-cgl-lhydvri spray to numb your throat. Sucking on [...] occurs, please contact your Doctor. Please call [phone] before 8pm Mon-Fri with problems, questions or concerns. If you call after 8pm or on weekends, call the Hospital at [phone] and ask to speak to the Behavioral Health Rn loans consultant and the pulley mortiser operator will contact that person for you. [...] any problems. Where can you learn more? [facility] View your After Visit Summary and more online at [email or web address] If you would like to provide feedback about your hospital experience, please call the Office of Patient and Family Relations at . If you have received this After Visit Summary in error, please immediately return it in person to the department, or notify the [facility] Privacy Office by calling toll free at between the hours of 8AM and 5PM to arrange for our retrieval of the documents at no cost to you. Content Version: 12.2 ?? [phone] [employer]. Care instructions adapted under license by [facility]. If you have questions about a medical condition or this instruction, always ask your healthcare professional. [employer] disclaims any warranty or liability for your [...] is during regular working hours, please call [phone]. If it is after 5 pm or a weekend or holiday, call [phone] and ask for the Solar Energy Sales Specialist loans consultant for Interventional Radiology. You have received medication [...] Center 06/03/2024 2:00 PM Lu Mcfarland APRN [facility] ID [id number] [facility] 06/05/2024 4:00 PM Elkin Garcia MD [facility] ORTH 3C [facility] Your Discharge Medication List Your [...] as much as possible. Call your doctor ([phone]) if you develop: Fever greater than 100.5 Severe nausea or vomiting Increasing pain that is not controlled by pain medications Increasing redness, swelling, or drainage from incisions Change in sensation FOLLOW-UP APPOINTMENTS: 1. You will have follow-up appointments at [facility] as indicated below in Future Appointment and Orders. 2. You will need to have x-rays prior to your follow-up appointment listed below. Please come to Radiology, desk 3T, 1 hour BEFORE that appointment for these x-rays. Future Appointments Date Time Provider Department Center 06/03/2024 2:00 PM Lu Mcfarland APRN [facility] ID 5C [facility] 06/05/2024 4:00 PM Elkin Garcia MD [facility] ORTH 3C [facility] If you have questions or concerns: Sunday through Sunday, 8 AM - 5 PM, please call Dr. Saba Spears MD's office at . If it is after 5 PM, the weekend, or holidays, please call and ask to speak with theOrthopedic resident on-call. * Attachments The following attachments cannot be sent through Care Everywhere. * Low Phosphorus Foods: General Info (Mongolian) * Low Potassium Foods: General Info (Mongolian) documented in this encounter Medications at Time [...] spent >30 minutes (Day of Discharge Code 89497) involved in the final examination of the patient, discussion of the hospital stay, instructions for continuing care to all relevant caregivers, and preparation of discharge records, prescriptions and referral forms. Plans Discharge to [facility] rehab Follow-up scheduled with ID, ortho, provider at [facility] Please see the Discharge Summary for complete details of any medication changes and additional plans. * Yg Jaffe - 05/23/2024 2:44 PM EDT Office of Care Management(OCM)/Airport Guide(RS) Patient Name: Jossy Shanks : 1955 Patient has been offered a SNF bed at [phone]. [facility] arranged for a BLS transport at 1530. Ambulance will need: Medicare ambulance form completed and signed (MD or Music Ministries Director) Copy of patient demographics [place] or [place] Out of Hospital DNR/DNI order, if active No MD to MD report necessary. Please call Nursing Report to , ask for etcher enameling. Info to accompany patient: Narcotic Prescriptions Copies of Medication Administration Records and IV sheets for past two weeks. Plan: Airport Guide will be available to the patient and Music Ministries Director for further assistance. Patient to discharge to: [facility] [address] [place] [address] Yg Jaffe Airport Guide * Shirley Samuel RN - 05/23/2024 12:05 PM EDT Physician Certification Statement for Non-Emergency Ambulance Services Section I - General Information Guanakojaren Spivey Rimma 1955 Medicare Number: n/a Transport Date: 05/23/2024 (PCS is valid for round trips on this date and for all repetitive trips in the 60-day range as noted below.) Origin: [facility] Destination: [facility] Is the [...] van (i.e. seated during transport, without medical investigator or monitoring?): No 4) In addition to [...] the Centers of Medicare and Medicaid Services ([facility]) to support the determination of medical necessity [...] AM Electronically signed by: Teofilo Ruiz MD, [facility] ([phone]), at 05/20/2024 11:30 AM Thank you for letting us participate in the care of this patient. If you are a health care provider and have any questions regarding this report, please contact the number above. For patients who have questions, please contact the health caretaker grounds that requested your imaging first. Teofilo Ruiz, [...] who have questions please contact the health caretaker grounds that requested your imaging first. Electronically signed by: Trinidad Mota MD, [facility] ([phone]), at 05/10/2024 12:56 PM XR Chest One View Final Result Bibasilar atelectasis. Thank you for letting us participate in the care of this patient. If you are a health care provider and have any questions regarding this report, please contact the number below. For patients who have questions please contact the health caretaker grounds that requested your imaging first. SCOPY: Reports [...] with them as documented. Tl Steele MD [facility] Gastroenterology * Irene Bravo RN [...] Zhao RN - 05/22/2024 12:47 PM EDT Bench Repair Technician spoke with JACKIE Nuñez from Endo [...] I/O last 3 completed shifts: In: 1840 [P.O.:1840] Out: 4725 [Urine:4725] CBC Lab Results Component [...] Galvan MD - 05/22/2024 6:57 AM EDT [facility] Medicine - Red Team Inpatient Progress Note ID: Jossy Shanks is a 69 y.o. year old male with past medical history of PMH of HTN, HFpEF, CKD (bsl Cr ~1.5), IDDM, COPD (not on home O2), rate controlled Afib (Xarelto, qing, coreg) admitted on 05/10/2024 ( Hospital [...] with PT - hoping to go to [facility] today Meds: pantoprazole 40 mg Intravenous BID furosemide 40 mg Oral QAM epoetin leah-epbx 10,000 Units Subcutaneous Daily insulin glargine (Lantus;Semglee) (100 unit/mL) subcutaneous injection 14 Units Subcutaneous Nightly lactobacillius capsule 1 capsule Oral Daily ipratropium-albuteroL 3 mL Nebulization Q4H insulin lispro 1-6 Units Subcutaneous Q4H [facility] cefTRIAXone 2 g Intravenous Q24H insulin lispro [...] shoe, c/w pt - Bed ready at [facility] #IDDM Home regiment: 1.2mg liraglutide [...] upcoming EGD, and availability of bed at [facility]. -ordered T&S in case continues to [...] Medicine Hospital Medicine Red Team - Pager [phone] Associated attestation - Saba Spears MD - [...] will transfuse and monitor response. Dispo to [facility] for rehab pending Hgb stability and EGD. I have examined the patient myself and personally reviewed all studies. In addition, I certify thatI am a D-H credentialed attending provider with admitting privileges and that the patient meets or has met medical necessity to require an inpatient IPI level of care meeting a minimum of two midnights or is on the [facility] inpatient only procedure list (status C) due to: OM requiring IV abx * Lazaro Aaron, PHOTOGEOLOGIST - 05/21/2024 4:05 PM EDT Physical Therapy [...] discharge to swing bed rehab facility vs group home facility once medically ready for hospital discharge. Pt will continue to benefit from skilled physical therapy while in the hospital in order to maximize independence and safety with functional mobility and achieve therapeutic goals. Discharge Recommendations: Based on current findings- swing bed rehabilitation facility, group home facility Discharge recommendation is based on the [...] with stable vital signs. Total Time: 34 (7933-4296) minutes. TAx2 Lazaro Aaron PTA Pager: [phone] Physical Therapy Inpatient Rehabilitation Department * Penny [...] decreased insight into deficits Vision: corrective lenses meat carrier Endurance: decreased activity tolerance Vitals: Stable on [...] with activities of daily living. Discharge Recommendation: group home facility, swing bed rehabilitation facility Equipment Recommendations: [...] times/wk Total Minutes, Occupational Therapy: 40 ([facility], [facility] x3 ([phone])) Pager: [phone] Penny Rodriguez OT Occupational Therapy Rehabilitation Department [...] of : 1955 AGE: 69 y.o. Address: [address] [place] [address] (home) Mobile: Telephone Information: Referring Provider: Anna [...] Galvan MD - 05/21/2024 6:30 AM EDT [facility] Medicine [...] Medicine Hospital Medicine Red Team - Pager [phone] Associated attestation - Saba Spears MD - [...] mid 7s. Appreciate GI consult. Dispo to [facility] pending Hgb and EGD. I have examined the patient myself and personally reviewed all studies. In addition, I certify thatI am a D-H credentialed attending provider with admitting privileges and that the patient meets or has met medical necessity to require an inpatient IPI level of care meeting a minimum of two midnights or is on the [facility] inpatient only procedure list (status C) due [...] Galvan MD - 05/20/2024 6:20 AM EDT [facility] Medicine - Red Team Inpatient [...] Pip-tazo and vanc c/w CTX Planning for laisha central line, instead of PICC Has offloading [...] Mihaela Galvan MD 05/20/2024 PGY-3, Internal Medicine [facility] Medicine Red Team - Pager [phone] Associated attestation - Saba Spears MD - [...] discharge to swing bed rehab facility vs group home facility once medically ready for hospital discharge. Pt will continue to benefit from skilled physical therapy while in the hospital in order to maximize independence and safety with functional mobility and achieve therapeutic goals. Discharge Recommendations: Based on current findings- swing bed rehabilitation facility, group home facility Discharge recommendation is based on the [...] Ho PT, Doctor of Physical Therapy Pager: [phone] Physical Therapy Inpatient Rehabilitation Department * Rebeca [...] decreased insight into deficits Vision: corrective lenses meat carrier Endurance: decreased activity tolerance Vitals: Stable on [...] with activities of daily living. Discharge Recommendation: group home facility, swing bed rehabilitation facility Equipment Recommendations: [...] times/wk Total Minutes, Occupational Therapy: 47 Pager: [phone] Rebeca Moeller OT Occupational Therapy Rehabilitation Department * Mihaela Galvan MD - 05/19/2024 6:43 AM EDT [facility] - Red Team Inpatient Progress Note ID: [...] Medicine Hospital Medicine Red Team - Pager [phone] Associated attestation - Saba Spears MD - [...] for a hospital day 9 nutrition evaluation. Bench Repair Technician met with pt at bedside. Pt [...] unless consulted in the interim. Julissa Weathers Snowblower Mechanic * Mihaela Galvan MD - 05/18/2024 7:20 AM EDT [facility] Medicine [...] Medicine Hospital Medicine Red Team - Pager [phone] Associated attestation - Saba Spears MD - [...] Harrison MD - 05/17/2024 6:28 AM EDT [facility] Medicine - Red Team Inpatient [...] José Harrison MD 05/17/2024 PGY-3, Internal Medicine [facility] Medicine Red Team - Pager [phone] Associated attestation - Saba Spears MD - [...] 6.64) performed by Elkin Garcia MD at [facility] MAIN OR Active Non-Hospital Problems Diagnosis [...] [place] PT, Doctor of Physical Therapy Pager: [phone] Physical Therapy Inpatient Rehabilitation Department * Emmanuel [...] History: Housing: lives in a camper in [facility] Occupation: Former [employer], retired in [...] Component Value - Date/Time MRSA PCR Screen ([facility]/CGP/APD/NLH) [[id number]] Collected: 05/15/24 1615 Lab Status: Final result Specimen: Nasopharyngeal Swab Updated: 05/15/242012 MRSA Result Negative MRSA Interp -- Methicillin-resistant Staphylococcus aureus (MRSA) is NOT DETECTED The MRSA target DNA sequences (mec and SCC) were not detected within the acceptable ranges using the Xpert MRSA NxG on the GeneXpert Dx System (Loop App). This suggests the absence of MRSA in the patient specimen submitted for testing. This test is cleared by the U.S. Food and Drug Administration for clinical use and its performance characteristics have been verified by the [facility] at [facility]. This result does not rule out the presence of any other organisms. Rare false negative results may occur if MRSA is present at low concentrations with much higher concentrations of other organisms including MRSE or S. aureus with an empty SCC cassette. Comment: [VERIFIED DATE]05.15.24 Verified By:Lupe Jensen (Electronic Signature) Tissue Culture, Aerobic & Anaerobic Toe [[id number]] (Abnormal) Collected: 05/14/24 1133 Lab Status: Preliminary result Specimen: Toe Updated: 05/15/24 1212 Tissue culture [[id number]] (Abnormal) Collected: 05/14/24 1133 Lab Status: Preliminary result Specimen: Toe Updated: 05/15/24 1212 Tissue Culture No growth to date. Gram Stain -- Few Neutrophils seen Rare Gram Positive Cocci in pairs seen Results called to and read back by Dr. Mihaela Galvan 05/14/24 14:57:00 Organism Gram Positive Cocci in pairs Anaerobic Culture [[id number]] Collected: 05/14/24 1133 Lab Status: Preliminary result Specimen: Toe Updated: 05/15/24 1124 Anaerobic Culture No anaerobic organisms isolated to date Blood culture [[id number]] Collected: 05/10/24 0232 Lab Status: Final result Specimen: Blood from Hand, Right Updated: 05/15/24 0701 Blood Culture No growth at 5 days. Skin/Superficial Wound Culture Toe [[id number]] (Abnormal) Collected: 05/10/24 0256 Lab Status: Final [...] follow. Please page ID Red team (pager [phone]) with questions or concerns. Emmanuel Corey, DO Internal Medicine PGY-2 Pager: [phone] Epic Chat 05/16/2024 Associated attestation - Rodriguez [...] the original note were not included. [facility] Red Team Inpatient Progress Note ID: [...] Component Value - Date/Time MRSA PCR Screen ([facility]/CGP/APD/NLH) [[id number]] Collected: 05/15/24 1615 Lab Status: Final result Specimen: Nasopharyngeal Swab Updated: 05/15/242012 MRSA Result Negative MRSA Interp -- Methicillin-resistant Staphylococcus aureus (MRSA) is NOT DETECTED The MRSA target DNA sequences (mec and SCC) were not detected within the acceptable ranges using the Xpert MRSA NxG on the GeneXpert Dx System (Loop App). This suggests the absence of MRSA in the patient specimen submitted for testing. This test is cleared by the U.S. Food and Drug Administration for clinical use and its performance characteristics have been verified by the [facility] at [facility]. This result does not rule out the presence of any other organisms. Rare false negative results may occur if MRSA is present at low concentrations with much higher concentrations of other organisms including MRSE or S. aureus with an empty SCC cassette. Comment: [VERIFIED DATE]05.15.24 Verified By:Lupe Jensen (Electronic Signature) Tissue Culture, Aerobic & Anaerobic Toe [[id number]] (Abnormal) Collected: 05/14/24 113 Lab Status: Preliminary result Specimen: Toe Updated: 05/15/24 1212 Tissue culture [[id number]] (Abnormal) Collected: 05/14/24 113 Lab Status: Preliminary result Specimen: Toe Updated: 05/15/24 121 Tissue Culture No growth to date. Gram Stain -- Few Neutrophils seen Rare Gram Positive Cocci in pairs seen Results called to and read back by Dr. Mihaela Galvan 05/14/24 14:57:00 Organism Gram Positive Cocci in pairs Anaerobic Culture [[id number]] Collected: 05/14/24 1133 Lab Status: Preliminary result Specimen: Toe Updated: 05/15/24 1124 Anaerobic Culture No anaerobic organisms isolated to date Blood culture [[id number]] Collected: 05/10/24 0232 Lab Status: Final result Specimen: Blood from Hand, Right Updated: 05/15/24 0701 Blood Culture No growth at 5 days. Skin/Superficial Wound Culture Toe [[id number]] (Abnormal) Collected: 05/10/24 0256 Lab Status: Final [...] PGY-1, Internal Medicine Red Team - Pager [phone] Associated attestation - Treva Diaz MD - [...] likely suture removal on 06/05/24. Please page [phone] with any questions or concerns. Activity: NWB until forefoot offloading shoe DVT prophylaxis: per primary, rec 30 days LVX or ASA81 BID Closure: Sutures (to be removed at Orthopaedic follow-up appointment) Dressing: bacitracin, xeroform, 4x4, kerlix, DEREK x 7 days Antibiotics: per primary Isra Rodriguez IV, DO 05/16/2024 Future Appointments Date Time Provider Department Center 06/05/2024 4:00 PM Elkin Garcia MD [facility] ORTH 3C [facility] * Mihaela Galvan MD - 05/15/2024 6:41 AM EDT Images from the original note were not included. [facility] Medicine - Red Team Inpatient [...] Procedure Component Value - Date/Time Tissue culture [[id number]] (Abnormal) Collected: 05/14/24 1133 Lab Status: Preliminary result Specimen: Toe Updated: 05/14/24 1459 Gram Stain -- Few Neutrophils seen Rare Gram Positive Cocci in pairs seen Results called to and read back by Dr. Mihaela Galvan 05/14/24 14:57:00 Organism Gram Positive Cocci in pairs Blood culture [[id number]] Collected: 05/10/24 0232 Lab Status: Preliminary result Specimen: Blood from Hand, Right Updated: 05/14/24 0701 Blood Culture No growth at 4 days. Skin/Superficial Wound Culture Toe [[id number]] (Abnormal) Collected: 05/10/24 0256 Lab Status: Final [...] PGY-1, Internal Medicine Red Team - Pager [phone] Associated attestation - Treva Diaz MD - [...] of two midnights or is on the [facility] inpatient only procedure list (status C) due [...] Center 06/05/2024 4:00 PM Elkin Garcia MD [facility] ORTH 3C [facility] * Savannah Sy RN - [...] Center 06/05/2024 4:00 PM Elkin Garcia MD [facility] ORTH 3C [facility] * Mihaela Galvan MD - 05/14/2024 6:04 AM EDT [facility] Medicine - Red Team Inpatient [...] PGY-1, Internal Medicine Red Team - Pager [phone] Associated attestation - Treva Diza MD - 05/15/2024 2:32 PM EDT Attending Attestation and Certification Please see Mihaela Gavlan MD's note for details of the patient [...] of two midnights or is on the [facility] inpatient only procedure list (status C) due [...] OR for the above procedure. Please page [phone] if there are any concerns regarding OR [...] Galvan MD - 05/13/2024 6:28 AM EDT [facility] Medicine - Red Team Inpatient [...] PGY-1, Internal Medicine Red Team - Pager [phone] Associated attestation - Treva Diaz MD - [...] of two midnights or is on the [facility] inpatient only procedure list (status C) due to: RLE cellulitis with concern forosteomyelitis. Continue on iv antibiotics and follow up with orthopedics regarding any surgical debridement . * Sarwat Marti - 05/12/2024 2:20 PM EDT Learning Support Assistant Encounter Note Patient Name: Jossy Shanks : [id number] MR#: [id number] Admit Date: 05/10/2024 2:12 AM Hospital Day 2 days Narrative:Visited to introduce and assess acceptance of Learning Support Assistant services. Patient was sleeping and I will visit an other time. Assessment: Intervention and Outcome: Follow-up: Time in Direct Care: Sarwat aMrti 05/12/2024 * Mihaela Galvan MD - 05/12/2024 6:36 AM EDT [facility] Medicine - Red Team Inpatient [...] PGY-1, Internal Medicine Red Team - Pager [phone] Associated attestation - Treva Diaz MD - [...] of two midnights or is on the [facility] inpatient only procedure list (status C) due to: RLE cellulitis with concern forosteomyelitis. Continue on iv antibiotics and discuss with orthopedics regarding any urgent need for surgical debridement. * Rodriguez Tian MD - 05/11/2024 10:23 AM EDT MEDICINE PAGER [phone] - [facility] Daily Progress Note Admit Date: 05/10/2024 [...] controlled Afib (Xarelto, dilt, coreg), admitted to [facility] on 05/10/2024 with LE cellulitis [...] CHO counting level 2 Last BM documented: (PHOTOGEOLOGIST) DVT Prophylaxis: Heparin DOAC Code Status: Attempt [...] of two midnights or is on the [facility] inpatient only procedure list (status C) due [...] presented to a local emergency [place] yesterday ([id number] birthday) due to ongoing wound issues and [...] minimumof two midnights or is on the [facility] inpatient only procedure list (status C) due to: acute kidney injury necessitating close monitoring of fluid balance such as intravenous fluids and/or titration of medication to achieve optimal effect and minimize the chance of immediate or severe side effects and resolving septic shock * Niya Gill MD - 05/10/2024 6:26 AM EDT .ICU Blue Progress Note Patient information: Patient Name: Jossy Shnaks : 1955 Date of Admission: 05/10/2024 ( Hospital Day 0 days ) ID: Jossy Castillo is a 69 y.o. year old male with PMH significant for IDDM, Afib rate controlled on Metoprolol, Xarelto , CKD (bsl cr 1.5), COPD not on home oxygen, HFpEF on Lasix, HTN on Losartan,who presented to [facility] for rt LE cellulitis, transferred to [facility] for septic shock. Interval Events: [...] 05/10/2024 2:37 AM) Result Value WORKSTATION ID [id number] Impression Bibasilar atelectasis. Thank you for letting us participate in the care of this patient. If you are a health care provider and have any questions regarding this report, please contact the number below. For patients who have questions please contact the health caretaker grounds that requested your imaging first. foot pending [...] Thomas MD - 05/10/2024 2:56 AM EDT [facility] TeleICU Initial Assessment Note I [...] hour(s)) Lactate, whole blood, send to lab ([facility] Result Value Lactate WB [...] infection if clinical appearance is worrisome -Awaiting [facility] admission K+ level and Chem [...] indication: Osteomyelitis, central venous access required for termite inspector antibiotic use IR workflow: Procedure request received through Interventional Radiology eDH order queue. There are no answered order specific questions. History of Present Illness: Per chart review, Jossy Shanks is a 69 y.o. male with PMH of CKD, DM,COPD, A.fib, admitted for RLE cellulitis and osteomyelitis s/p 2ng toe amputation requiring termite inspector IV antibiotic administration who presents to Interventional [...] medical record. IR History: None listed at [facility] Anticoagulation/Antiplatelet: None listed Labs: Lab [...] Assessment: 69 y.o. male with OM requiring intermediate IV ABX presenting to Interventional Radiology for [...] 6.64) performed by Elkin Garcia MD at [facility] MAIN OR Social History and Habits: [...] indication: Osteomyelitis, central venous access required for termite inspector antibiotic use IR workflow: Procedure request received through Interventional Radiology eDH order queue. There are no answered order specific questions. History of Present Illness: Per chart review, Jossy Shanks is a 69 y.o. male with PMH of CKD, DM,COPD, A.fib, admitted for RLE cellulitis and osteomyelitis s/p 2ng toe amputation requiring intermediate IV antibiotic administration who presents to Interventional [...] medical record. IR History: None listed at [facility] Anticoagulation/Antiplatelet: None listed Labs: Lab [...] Assessment: 69 y.o. male with OM requiring intermediate IV ABX presenting to Interventional Radiology for [...] 6.64) performed by Elkin Garcia MD at [facility] MAIN OR Social History and Habits: [...] amputation. Isra Rodriguez IV, DO Orthopaedic Surgery [facility] * Carlotta Davis MD - [...] on home oxygen, HFpEF, HTN, admitted to [facility] on 05/10/2024, now on Hospital Day #0, for RLE cellulitis SUBJECTIVE History of Present Illness: Per admitting provider Jossy Shanks is a 69 y.o. year old male with PMH significant for IDDM, Afib rate controlled, CKD (bsl cr 1.5), COPD not on home oxygen, HFpEF, HTN who presented to [facility] for rt LE cellulitis, transferred to [facility] for RLE cellulitis after trauma [...] knee. Fevers & chills for last 24hrs. [place] lightheaded, weak, & couldn't get out of [...] prior to OSH departure. On arrival to [facility]: HR 96, o2 sat mid [...] limbs -chronic Motor Exam: Upper Limb Bilateral: Laser Beam Trim Operator Strength 5/5 Wrist Flexion/Extension 5/5 Elbow [...] in the last 7068 hours. Invalid input(s): [id number] Recent Labs 05/10/24219 HA1C 5.9* Lipids: Heme: No results for input(s): LDH, HAPTOGLOBIN, URICACID in the last 168 hours. ABG (Arterial Blood Gas): No results found for: PHART, PO2ART, UOX8EWT, JGD5SUM VBG (Venous Blood Gas): No results for input(s): PHVEN, JOX5EJR, PO2VEN, CBC6OZI, BEVEN, WTL3VPF in the last 72hours. EKG: No results [...] 05/10/2024 2:37 AM) Result Value WORKSTATION ID [id number] Impression Bibasilar atelectasis. Thank you for letting us participate in the care of this patient. If you are a health care provider and have any questions regarding this report, please contact the number below. For patients who have questions please contact the health caretaker grounds that requested your imaging first. Foot wwo Contrast Right (Exam End: 05/10/2024 5:51 AM) Result Value WORKSTATION ID [id number] Impression 1. Soft tissue irregularity of the [...] who have questions please contact the health caretaker grounds that requested your imaging first. Electronically signed by: Trinidad Mota MD, [facility] ([phone]), at 05/10/2024 12:56 PM Medications: Scheduled: [START [...] controlled Afib (Xarelto, dilt, coreg), admitted to [facility] on 05/10/2024, now on Hospital [...] Internal Medicine PGY2 Medicine Team: Rigo, Pager #[phone] Associated attestation - Treva Diaz MD - [...] home oxygen, HFpEF, HTN who presented to [facility] for rt LE cellulitis, transferred to [facility] for septic shock. Reports end [...] knee. Fevers & chills for last 24hrs. [place] lightheaded, weak, & couldn't get out of [...] prior to OSH departure. On arrival to [facility]: HR 96, o2 sat mid [...] mobilizes w/out assistance. Darion Morgan is DPOA; [phone] Physical Exam: Vitals: Last value Range last [...] Camacho MD Internal Medicine, PGY2 05/10/2024 [facility] Pager #[phone] documented in this encounter Procedure Notes * Juan José Flowers MD - 05/21/2024 11:49 AM EDT IR PROCEDURE NOTE Procedure: Tunneled central venous catheter placement. Indication for Procedure: Per Allyn MIMS Jossy Shanks is a 69 y.o. male with PMH of CKD, DM, COPD, A.fib, admitted for RLE cellulitis andosteomyelitis s/p 2ng toe amputation requiring intermediate IV antibiotic administration who presents to Interventional [...] Patient is medically ready for discharge to [facility]. Needs for Transition of Care: Plan for discharge is: Halfway Facility / Swing OPAT Orders: ID Consult Ordered Agency Referrals & Follow-up Care: [facility] [address] [place] [address] Transportation: family or friend will provide Wheelchair [...] through: Primary Insurance: [employer] MANAGED MEDICARE Payor: [employer] MANAGED MEDICARE / Plan: [facility] MANAGED MEDICARE COMPLETE / Product Type: *No Product type* / Secondary Insurance: N/A Prescription Coverage: Yes This plan was formulated with input from patient and team. All are in agreement with plan. Shirley Samuel RN CM Hr Payroll Coordinator- Medicine Office of Care Management Ext: [phone] Pager: [phone] * Plan of Care - Juan José [...] Flowsheets (Taken 05/22/2024802 by Trice Zhao, RN) Safety Promotion/Fall Prevention: activity supervised assistive [...] Prevent or Manage Infection Flowsheets (Taken 05/20/2024 0803 by Evelyn Prakash, RN) Fever Reduction/Comfort Measures: [...] and were able to stop the bleeding. Bench Repair Technician carolyn a hemoglobin when patient got [...] Operative Note Patient Name: Jossy Shanks : [id number] MR#: [id number] Case Date: 05/22/2024 Surgeon: Surgeons and Role: [...] Access Non-Dialysis 05/21/2024 Juan José Flowers MD [facility] INTERVENTIONL RAD PRO AMPUTATION METATARSAL+TOE, SINGLE Right 05/14/2024 AMPUTATION, TRANSMETATARSAL TOE, ONE TOE (WRVU 6.64) performed by Elkin Garcia MD at [facility] MAIN OR SOCIAL HX: Social History [...] AM Electronically signed by: Teofilo Ruiz MD, [facility] ([phone]), at 05/20/2024 11:30 AM Thank you for letting us participate in the care of this patient. If you are a health care provider and have any questions regarding this report, please contact the number above. For patients who have questions, please contact the health caretaker grounds that requested your imaging first. Teofilo Ruiz, [...] who have questions please contact the health caretaker grounds that requested your imaging first. Electronically signed by: Trinidad Mota MD, [facility] ([phone]), at 05/10/2024 12:56 PM XR Chest One View Final Result Bibasilar atelectasis. Thank you for letting us participate in the care of this patient. If you are a health care provider and have any questions regarding this report, please contact the number below. For patients who have questions please contact the health caretaker grounds that requested your imaging first. SCOPY: Reports and images personally reviewed in H OSH RECORDS: Obtained and personally reviewed ASSESSMENT & PLAN: 69 y.o. male with past medical history of [facility] of HTN, HFpEF, CKD (bsl Cr ~1.5), [...] anticoagulation and significant anemia. Tl Steele MD [facility] Gastroenterology * Plan of Care [...] Pain Flowsheets (Taken 05/20/2024802) Pain Management Interventions: tccwdd-aqs-esmtv dosing utilized breathing exercises care clustered diversional [...] Physical Therapy Recommendation: swing bed rehabilitation facility, group home facility with to be determined Last Occupational Therapy Recommendation: group home facility, swing bed rehabilitation facility with to be determined Plan for discharge is: Halfway Facility / Swing Outpatient Agency/Support Group Needs: Homecare agency OPAT Orders: ID Consult Ordered Location: Home Home Health Services: IV Therapy Agency Referrals: Based on discussions with the multi-disciplinary healthcare team, the patient would benefit from SNF level of care at discharge. I have met with the patient to: discuss discharge planning needs. provide the [facility], Office of Care Management letter from the Nutritional Chemist pertaining to rehab referrals. provide a letter describing our affiliations within the [facility] and educate about their right to choose where referrals are sent. provide the CMS Star Quality Rating handout. review the different levels of rehab including SNF, swing, and acute. provide a list of facilities within their preferred geographic area. request that they provide at least three choices for referral. They have requested referrals to: [facility] ([facility] [address] [place] [address] [facility] [address] [place] [address] -OFFERED BED, PENDING INSURANCE AUTHORIZATION 05/20 130[address] [facility] [address] [place] [address] [facility] [address] [place] [address] [facility]) [address] [place] [address] (Accepts pts only after exhausting all other local SNF options) Does patient have COVID vaccine card: Yes; Copy obtained: No Note routed to a Airport Guide who will communicate referrals to facilities and provide any required information. Transportation: family or friend will provide Barriers to discharge: Discharge planning Plan going forward: Referrals routed for SNF/Swing. Care Management will continue to follow and assist with discharge planning and coordination of care as indicated. Anticipated Date of Discharge: 05/21/2024 Shirley Samuel RN CM Hr Payroll Coordinator- Medicine Office of Care Management Ext: [phone] Pager: [phone] * Plan of Care - Pretty Ramirez [...] shock at his time of transfer to [facility]. Creatinine on admission was 3.94 [...] 6.64) performed by Elkin Garcia MD at [facility] MAIN OR insulin glargine-ygfn (Semglee) (100 [...] Flowsheets (Taken 05/18/2024 0838) Pain Management Interventions: lwepnb-pnn-okfyp dosing utilized care clustered diversional activity provided [...] television Taken 05/15/2024 1825 Pain Management Interventions: cbtcqm-oyt-nakyz dosing utilized position adjusted pillow support provided [...] smartphone Taken 05/15/2024 1825 Pain Management Interventions: eornsu-due-lsjkl dosing utilized position adjusted pillow support provided [...] 6.64) performed by Elkin Garcia MD at [facility] MAIN OR Active Non-Hospital Problems Diagnosis [...] Perception: WNL / WFL and corrective lenses meat carrier Communication: WFL Range of motion, strength, coordination: [...] planning. Total Minutes, Occupational Therapy: 90 (evaluation ([id number])) 2017 OT Evaluation Code Rationale: Diagnosis & [...] and measurable assessment of functional outcome. Pager: [phone] Penny Rodriguez OT 05/16/2024 Occupational Therapy Rehabilitation [...] have. Alternately, during off-hours you may call [phone] to contact a pharmacist. * Consult Note [...] Implemented as Appropriate) 05/15/2024 112 by Evelyn Prakash, RN Outcome: Ongoing (Interventions [...] briefly on vasopressors, and then transferred to [facility] for further management. 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 05/14. Reports a hx of cellulitis in the Left leg back in 2009 for which he states he did a course of 6 week son IV abx from [facility]. Has gotten cellulitis about half a dozen times in total. Review of Systems: Pertinent positives and negatives noted in HPI. 14 point ROS otherwise negative except noted in HPI. Allergies/Adverse drug reactions: No Known Allergies Family History: Family History No data available Social History: Housing: lives in a camper in [facility] Occupation: Former [employer], retired in [...] Procedure Component Value - Date/Time Blood culture [[id number]] Collected: 05/10/24 0232 Lab Status: Final result Specimen: Blood from Hand, Right Updated: 05/15/24 0701 Blood Culture No growth at 5 days. Tissue culture [[id number]] (Abnormal) Collected: 05/14/24 1133 Lab Status: Preliminary result Specimen: Toe Updated: 05/14/24 1459 Gram Stain -- Few Neutrophils seen Rare Gram Positive Cocci in pairs seen Results called to and read back by Dr. Mihaela Galvan 05/14/24 14:57:00 Organism Gram Positive Cocci in pairs Skin/Superficial Wound Culture Toe [[id number]] (Abnormal) Collected: 05/10/24 0256 Lab Status: Final [...] follow. Please page ID Red team (pager [phone]) with questions or concerns. Emmanuel Corey, DO Internal Medicine PGY-2 Pager: [phone] Epic Chat 05/15/2024 Associated attestation - Rodriguez [...] Home Health Services: IV Therapy Agency Referrals: [place] [address] or Home Care Orders: 1. IV Antibiotics: [...] to discharge: Discharge planning Plan going forward: [facility] routed and pended. [facility] routed. Care Management will continue to follow and assist with discharge planning and coordination of care as indicated. Anticipated Date of Discharge: 05/19/2024 Shirley Samuel RN CM Hr Payroll Coordinator- Medicine Office of Care Management Ext: [phone] Pager: [phone] * Plan of Care - Christine Ronquillo [...] received HS scheduled Lantus 12 units @ 5. Per pt Lantus 12 units @HS follows [...] Pt in agreement. Pt POC BG @ 1605 223. Pt denies pain. Pt resting in [...] Operative Note Patient Name: Jossy Shanks : [id number] MR#: [id number] Case Date: 05/14/2024 Surgeon: Surgeons and Role: [...] Garcia MD - 05/14/2024 11:16 AM EDT [facility] Operative Note Patient Name: Jossy Shanks : [id number] MR#: [id number] Case Date: 05/14/2024 Surgeon: Surgeons and Role: [...] can weight-bear as tolerated and heel off inspector and unloader We will follow his wounds while he is here in the hospital. Surgical Infection Prevention Bundle Used? N/A Attestation: Case Date: 05/14/2024 I was present and I participated during the entire procedure (does not need to include opening and closing). Elkin Garcia MD 05/14/2024 * Consult Note - Hakeem Villa [facility] - 05/14/2024 7:15 AM EDT [facility] Pharmacokinetics Note Drug: Vancomycin Pharmacokinetic target: AUC24 (range) 400-600 mg/L.hr Jossy Shanks is a 69-year-old male receiving intermittent Vancomycin doses Recent measured serum creatinine values: 05/14/2024 05:01 1.56 mg/dL 05/13/2024 05:29 1.53 mg/dL 05/12/2024 04:45 2.03 mg/dL Assessment: Analysis of the most recent level(s) using MD RevolutionX gives the following patient-specific pharmacokinetic parameters: CL: [...] Care Goal: Plan of Care Review 05/14/2024 0456 by Pretty Ramirez RN Outcome: [...] controlled Afib (Xarelto, dilt, coreg), admitted to [facility] on 05/10/2024 with LE cellulitis 2/2 right foot trauma. Reason for intervention: Diet order question - what type of carb control diet does pt need? Nutrition Recommendations: Carb control level 3 diet Monitor po intake Monitor blood glucose levels Monitor weight trends I was able to discuss plan with provider Medicine Pager Red [phone] . Nutrition consult received regarding what type of carb control diet pt needs. Estimated nutrition needs based on ideal body weight of 89kg: Calories: 3915-4743 calories (20-25kcal/kg) Protein: 89-107g (1-1.2g/kg) Nutrition to [...] border dressing. (Melgisorb Ag 6x6 PS # [id number]) (Melgisorb Ag 4x4 PS # [id number]) Sacrum/ischium: open to air, utilize Z-guard if patient begins to have breakdown Supplies left at the bedside: 1 sheet of Melgisorb Ag, wound cleanser Wound Care will complete the consult at this time. If there are further issues please re-consult via eD-H. Discussed plan with: RN: Don Please contact Keeley Russell RN on eDH secure chat or the wound care team on pager [phone] with skin and wound care concerns or [...] Son CONRADO Any patient receiving care in [place] must abide by [place] law. The hierarchy [...] (i) The agent with financial power of environmental attorney or a conservator appointed in accordance [...] DME: none Home Address listed as: [address] [place] [address] Pt is not currently residing here. Current address is as below: [place] [id number] Social & Family Supports: All names listed below confirmed with patient as current and correct Extended Emergency Contact Information Primary Emergency Contact: Eddie Shanks Mobile Relation: Son/[id number]-rn-ytz Secondary Emergency Contact: Gifty Bucio [facility] Relation: Mother Current Care Provided by: [...] Pertinent/Service Specific Information: Health/Prescription Coverage: Primary Insurance: [facility] [employer] [facility] OOS Payor: [facility] OOS / Plan: [facility] OOS PPO / Product Type: *No Product type* / Secondary Insurance: N/A ; Prescription Coverage: Yes Preferred Pharmacy: [id number] - [place], [place] - [address] [address] [facility] [id number] Primary Care Provider listed: None None Pt does have PCP in [facility] Patient/Caregiver Goals of Treatment: Potential Needs for Transition of Care: none, home health care Agency Referrals: I have met with the patient to: discuss discharge planning needs. provide the [facility], Office of Care Management letter from the Nutritional Chemist pertaining to rehab referrals. provide a letter describing our affiliations within the [facility] and educate about their right to choose where referrals are sent. provide a list of Home Health Agencies / Durable Medical Equipment vendors which serve their preferred geographic area. provided patient with [facility] Star Quality Rating handout. They have requested referrals to: [facility] [address] [place] [address] Note routed to a Airport Guide who will communicate referrals to facilities and [...] wait list for housing (an apartment) in [place], [place]; ETA for move-in is 4-8weeks. He does not feel that his local family members would be able to house him in the interim andexpresses that he is comfortable in his camper, which has amenities. He is fully independent at baseline but has used [facility] health in the past; a referral [...] Clinical Pharmacist Note - VancFD Jossy Shanks [id number] Jossy Shanks is a 69 y.o. [...] Alternately, during off-hours (9p-) you may call [phone] to contact a pharmacist. Rodriguez Sinclair RPH [...] intact shoulder abduction, elbow flexion/extension, wrist flexion/extension, dental hygiene teacher, EPL, AIN, IO Brisk capillary refill distally [...] intact shoulder abduction, elbow flexion/extension, wrist flexion/extension, dental hygiene teacher, EPL, AIN, IO Brisk capillary refill distally [...] changes develop in his course. Please page [phone] following completion of requestedimaging and studies. - Activity: no restrictions at this time - DVT prophylaxis: per primary; recommend lovenox 30 mg BID - Antibiotics: per ID - Imaging / studies needed: MRI wwo contrast, ABIs, ESR, CRP Tyrone Rehman MD Orthopaedic Surgery, [phone] documented in this encounter Plan of Treatment [...] EDT Upper Gi Endoscopy, W/Dir Submuc Inj ([id number]) 05/22/2024 4:39 PM EDT ? melena Upper Gi Endoscopy, Ctrl Bleed ([id number]) 05/22/2024 4:39 PM EDT ? melena Upper GI Endoscopy, Diagnostic ([id number]) 05/22/2024 4:39 PM EDT ? melena UPPER [...] - 199 mg/dL 05/23/2024 12:32 PM EDT [facility] Comment:Supplemental ranges: <140 mg/dL before meals <180 mg/dL all other times of the day. Blood CAPILLARY BLOOD / Unknown 05/23/2024 12:32 PM EDT 05/23/2024 12:32 PM EDT Saba Spears MD POINT OF CARE TEST ORDERABLES Performing Organization Address City/State/[facility] Co de Phone Number [facility] [place] [address] * (ABNORMAL) Basic Metabolic Panel (05/23/2024 9:46 AM EDT) Glucose 142 65 - 199 mg/dL 05/23/2024 11:27 AM EDT [facility] Comment:Glucose Concentratio n >=200 mg/dL plus symptoms is consistent with Diabetes Mellitus. Blood Urea Nitrogen 83(H) 10 - 20 mg/dL 05/23/2024 11:27 AM EDT [facility] Creatinine 2.64(H) 0.80 - 1.50 mg/dL 05/23/2024 11:27 AM EDT [facility] Sodium 140 135 - 145 mMol/L 05/23/2024 11:27 AM EDT [facility] Potassium 5.2(H) 3.5 - 5.0 mMol/L 05/23/2024 11:27 AM EDT [facility] Chloride 111(H) 98 - 107 mMol/L 05/23/2024 11:27 AM EDT [facility] Carbon Dioxide 20(L) 22 - 31 mMol/L 05/23/2024 11:27 AM EDT [facility] Anion Gap 9 5 - 15 mMol/L 05/23/2024 11:27 AM EDT [facility] Calcium 9.3 8.5 - 10.5 mg/dL 05/23/2024 11:27 AM EDT [facility] Est Glomerular Filtration Rate - Male 25 mL/min/1. 73 m?? 05/23/2024 11:27 AM EDT [facility] Comment: This patient's estimated GFR [...] EDT Saba Spears MD CHEMISTRY ORDERABLE S [facility] [place] [address] * (ABNORMAL) CBC (with Diff) (05/23/2024 9:46 AM EDT) White Blood Cell 12.66(H) 4.00 - 9.50 x10(3)/mc L 05/23/2024 10:52 AM EDT [facility] Red Blood Cell 2.56(L) 4.58 - 5.54 x10(6)/mc L 05/23/2024 10:52 AM EDT [facility] Hemoglobin 7.7(L) 13.7 - 16.5 g/dL 05/23/2024 10:52 AM [facility] Hematocrit 24.3(L) 40.5 - 48.5 % 05/23/2024 10:52 AM [facility] Mean Cell Volume 94.9(H) 82.9 - 93.1 fL 05/23/2024 10:52 AM [facility] Mean Cell Hemoglobin 30.1 27.5 - 32.1 pg 05/23/2024 10:52 AM [facility] Mean Cell Hemoglobin Concentration 31.7(L) 32.0 - 35.7 g/dL 05/23/2024 10:52 AM [facility] Platelet 370(H) 145 - 357 x10(3)/mc L 05/23/2024 10:52 AM [facility] Mean Platelet Volume 11.6 7.6 - 12.9 fL 05/23/2024 10:52 AM [facility] RDW Standard Deviation 57.1(H) 36.0 - 45.0 fL 05/23/2024 10:52 AM [facility] RDW coefficient of variation 16.9(H) 11.4 - 13.8 % 05/23/2024 10:52 AM [facility] NRBC% auto 0.0 % 05/23/2024 10:52 AM [facility] NRBC Absolute 0.00 0.00 - 0.00 x10(3)/mc L 05/23/2024 10:52 AM [facility] Neutrophil % 81.6 % 05/23/2024 10:52 AM [facility] Neutrophil Absolute (ANC) - Automated 10.34(H) 1.70 - 6.10 x10(3)/mc L 05/23/2024 10:52 AM [facility] Lymph % 5.1 % 05/23/2024 10:52 AM [facility] Lymph Absolute 0.64(L) 0.90 - 3.20 x10(3)/mc L 05/23/2024 10:52 AM EDT [facility] Monocyte % 10.7 % 05/23/2024 10:52 AM EDT [facility] Monocyte Absolute 1.35(H) 0.30 - 0.90 x10(3)/mc L 05/23/2024 10:52 AM EDT [facility] Eos % 1.7 % 05/23/2024 10:52 AM EDT [facility] Eos Absolute 0.22 0.00 - 0.40 x10(3)/mc L 05/23/2024 10:52 AM EDT [facility] Basophil % 0.3 % 05/23/2024 10:52 AM EDT [facility] Baso Absolute 0.04 0.00 - 0.10 x10(3)/mc L 05/23/2024 10:52 AM EDT [facility] Immature Gran % 0.6 % 10:52 AM EDT [facility] Immature Gran Absolute 0.07(H) 0.00 - 0.04 x10(3)/mc L 05/23/2024 10:52 AM EDT [facility] Blood VENOUS BLOOD SPECIMEN / Unknown IP Care Team Draw / Unknown 05/23/2024 9:46 AM EDT 05/23/2024 10:01 AM EDT Saba Spears MD HEMATOLOGY ORDERABL ES [facility] [place] [address] * POC, GLUCOSE (05/23/2024 7:44 AM EDT) [facility] Signature Glucometer, POC 127 65 - 199 mg/dL 05/23/2024 7:44 AM EDT [facility] Comment:Supplemental ranges: <140 mg/dL before meals <180 mg/dL all other times of the day. Blood CAPILLARY BLOOD / Unknown 05/23/2024 7:44 AM EDT 05/23/2024 7:45 AM EDT Saba Spears MD POINT OF CARE TEST ORDERABLES Performing Organization Address City/[facility]/ZIP Co de Phone Number [facility] [place] [address] * Prepare RBC (05/23/2024 3:49 AM EDT) Status Information Transfused [facility] Product Identification RBC [facility] Unit Number [id number] [facility] Product [facility] [id number] [facility] Unit Blood Type OPOS [facility] Specimen Expiration Date [id number] [facility] Volulme 350 [facility] Issue Date / Time [id number] [facility] Blood 05/22/2024 12: 42 PM EDT Saba Spears MD BLOOD BANK PRODUCT ORDERABLES Performing Organization Address [facility] Co de Phone Number [facility] [place] [address] * POC, GLUCOSE (05/23/2024 3:49 AM EDT) Glucometer, POC 152 65 - 199 mg/dL 05/23/2024 3:49 AM EDT [facility] Comment:Supplemental ranges: <140 mg/dL before meals <180 mg/dL all other times of the day. Blood CAPILLARY BLOOD / Unknown 05/23/2024 3:49 AM EDT 05/23/2024 3:49 AM EDT Saba Spears MD POINT OF CARE TEST ORDERABLES Performing Organization Address City/[facility]/ZIP Co de Phone Number [facility] [place] [address] * POC, GLUCOSE (05/23/2024 1:26 AM EDT) Glucometer, POC 138 65 - 199 mg/dL 05/23/2024 1:26 AM EDT [facility] Comment:Supplemental ranges: <140 mg/dL before meals <180 mg/dL all other times of the day. Blood CAPILLARY BLOOD / Unknown 05/23/2024 1:26 AM EDT 05/23/2024 1:26 AM EDT Saba Spears MD POINT OF CARE TEST ORDERABLES Performing Organization Address [facility] Co de Phone Number [facility] [place] [address] * (ABNORMAL) Scan, Peripheral Blood (05/23/2024 1:19 AM EDT) RBC Morphology Abnormal 05/23/2024 3:44 AM EDT [facility] Platelet Estimate Increased(A) Normal 05/23/2024 3:44 AM EDT [facility] Ovalocytes 1-5 /HPF 05/23/2024 3:44 AM EDT [facility] [place] cells 1-5 /HPF 05/23/2024 3:44 AM EDT [facility] Blood VENOUS BLOOD SPECIMEN / Unknown IP Care Team Draw / Unknown 05/23/2024 1:19 AM EDT 05/23/2024 2:05 AM EDT Mary De La Fuente MD HEMATOLOGY ORDERAB LES Performing Organization Address [facility] Co de Phone Number [facility] [place] [address] * Magnesium (05/23/2024 1:19 AM EDT) Magnesium 0.86 0.69 - 1.07 mMol/L 05/23/2024 2:40 AM EDT [facility] Blood VENOUS BLOOD SPECIMEN / Unknown IP Care Team Draw / Unknown 05/23/2024 1:19 AM EDT 05/23/2024 2:05 AM EDT Mary De La Fuente MD CHEMISTRY ORDERABL ES Performing Organization Address City/[facility]/ZIP Co de Phone Number [facility] [place] [address] * (ABNORMAL) Phosphorus (05/23/2024 1:19 AM EDT) Pathologist [facility] Phosphorus 5.8(H) 2.5 - 4.5 mg/dL 05/23/2024 2:40 AM EDT [facility] Blood VENOUS BLOOD SPECIMEN / Unknown IP Care Team Draw / Unknown 05/23/2024 1:19 AM EDT 05/23/2024 2:05 AM EDT Mary De La Fuente MD CHEMISTRY ORDERABL ES Performing Organization Address [facility]/ZIP Co de Phone Number [facility] [place] [address] * (ABNORMAL) Basic Metabolic Panel (non-fasting) (05/23/2024 1:19 AM EDT) Pathologist [facility] Glucose 158 65 - 199 mg/dL 05/23/2024 3:34 AM EDT [facility] Comment:Glucose Concentratio n >=200 mg/dL plus symptoms is consistent with Diabetes Mellitus. Blood Urea Nitrogen 85(H) 10 - 20 mg/dL 05/23/2024 3:34 AM EDT [facility] Creatinine 2.70(H) 0.80 - 1.50 mg/dL 05/23/2024 3:34 AM EDT [facility] Sodium 139 135 - 145 mMol/L 05/23/2024 3:34 AM EDT [facility] Potassium 4.9 3.5 - 5.0 mMol/L 05/23/2024 3:34 AM EDT [facility] Chloride 108(H) 98 - 107 mMol/L 05/23/2024 3:34 AM EDT [facility] Carbon Dioxide 20(L) 22 - 31 mMol/L 05/23/2024 3:34 AM EDT [facility] Anion Gap 11 5 - 15 mMol/L 05/23/2024 3:34 AM EDT [facility] Calcium 9.1 8.5 - 10.5 mg/dL 05/23/2024 3:34 AM EDT [facility] Est Glomerular Filtration Rate - Male 25 mL/min/1. 73 m?? 05/23/2024 3:34 AM EDT [facility] Comment: This patient's estimated GFR [...] Foundation Fasting Status 05/23/2024 3:34 AM EDT [facility] Blood VENOUS BLOOD SPECIMEN / Unknown IP Care Team Draw / Unknown 05/23/2024 1:19 AM EDT 05/23/2024 2:05 AM EDT Mary De La Fuente MD CHEMISTRY ORDERABL ES [facility] [place] [address] * (ABNORMAL) CBC (with Diff) (05/23/2024 1:19 AM EDT) White Blood Cell 12.66(H) 4.00 - 9.50 x10(3)/mc L 05/23/2024 3:44 AM EDT [facility] Red Blood Cell 2.61(L) 4.58 - 5.54 x10(6)/mc L 05/23/2024 3:44 AM EDT [facility] Hemoglobin 7.8(L) 13.7 - 16.5 g/dL 05/23/2024 3:44 AM EDT [facility] Hematocrit 24.3(L) 40.5 - 48.5 % 05/23/2024 3:44 AM [facility] Mean Cell Volume 93.1 82.9 - 93.1 fL 05/23/2024 3:44 AM [facility] Mean Cell Hemoglobin 29.9 27.5 - 32.1 pg 05/23/2024 3:44 AM [facility] Mean Cell Hemoglobin Concentration 32.1 32.0 - 35.7 g/dL 05/23/2024 3:44 AM [facility] Platelet 381(H) 145 - 357 x10(3)/mc L 05/23/2024 3:44 AM [facility] Mean Platelet Volume 11.4 7.6 - 12.9 fL 05/23/2024 3:44 AM [facility] RDW Standard Deviation 55.1(H) 36.0 - 45.0 fL 05/23/2024 3:44 AM [facility] RDW coefficient of variation 16.5(H) 11.4 - 13.8 % 05/23/2024 3:44 AM [facility] NRBC% auto 0.0 % 05/23/2024 3:44 AM [facility] NRBC Absolute 0.00 0.00 - 0.00 x10(3)/mc L 05/23/2024 3:44 AM [facility] Neutrophil % 79.4 % 05/23/2024 3:44 AM [facility] Comment:This is an appended report. These results have been appended to a previously preliminary verified report. Neutrophil Absolute (ANC) - Automated 10.06(H) 1.70 - 6.10 x10(3)/mc L 05/23/2024 3:44 AM [facility] Comment:This is an appended report. These results have been appended to a previously preliminary verified report. Lymph % 5.8 % 05/23/2024 3:44 AM [facility] Comment:This is an appended report. These results have been appended to a previously preliminary verified report. Lymph Absolute 0.73(L) 0.90 - 3.20 x10(3)/mc L 05/23/2024 3:44 AM [facility] Comment:This is an appended report. These results have been appended to a previously preliminary verified report. Monocyte % 12.1 % 05/23/2024 3:44 AM [facility] Comment:This is an appended report. These results have been appended to a previously preliminary verified report. Monocyte Absolute 1.53(H) 0.30 - 0.90 x10(3)/mc L 05/23/2024 3:44 AM [facility] Comment:This is an appended report. These results have been appended to a previously preliminary verified report. Eos % 1.9 % 05/23/2024 3:44 AM [facility] Comment:This is an appended report. These results have been appended to a previously preliminary verified report. Eos Absolute 0.24 0.00 - 0.40 x10(3)/mc L 05/23/2024 3:44 AM [facility] Comment:This is an appended report. These results have been appended to a previously preliminary verified report. Basophil % 0.3 % 05/23/2024 3:44 AM [facility] Comment:This is an appended report. These results have been appended to a previously preliminary verified report. Baso Absolute 0.04 0.00 - 0.10 x10(3)/mc L 05/23/2024 3:44 AM [facility] Comment:This is an appended report. These results have been appended to a previously preliminary verified report. Immature Gran % 0.5 % 3:44 AM [facility] Comment:This is an appended report. These results have been appended to a previously preliminary verified report. Immature Gran Absolute 0.06(H) 0.00 - 0.04 x10(3)/mc L 05/23/2024 3:44 AM EDT [facility] Comment:This is an appended report. These results have been appended to a previously preliminary verified report. Blood VENOUS BLOOD SPECIMEN / Unknown IP Care Team Draw / Unknown 05/23/2024 1:19 AM EDT 05/23/2024 2:05 AM EDT Mary De La Fuente MD HEMATOLOGY ORDERAB LES Performing Organization Address City/[facility]/ZIP Co de Phone Number [facility] [place] [address] * POC, GLUCOSE (05/22/2024 8:21 PM EDT) Glucometer, POC 152 65 - 199 mg/dL 05/22/2024 8:21 PM EDT [facility] Comment:Supplemental ranges: <140 mg/dL before meals <180 mg/dL all other times of the day. Blood CAPILLARY BLOOD / Unknown 05/22/2024 8:21 PM EDT 05/22/2024 8:21 PM EDT Saba Spears MD POINT OF CARE TEST ORDERABLES Performing Organization Address [facility] Co de Phone Number [facility] [place] [address] * POC, GLUCOSE (05/22/2024 6:20 PM EDT) Glucometer, POC 130 65 - 199 mg/dL 05/22/2024 6:20 PM EDT [facility] Comment:Supplemental ranges: <140 mg/dL before meals <180 mg/dL all other times of the day. Blood CAPILLARY BLOOD / Unknown 05/22/2024 6:20 PM EDT 05/22/2024 6:21 PM EDT Saba Spears MD POINT OF CARE TEST ORDERABLES Performing Organization Address City/[facility]/ZIP Co de Phone Number [facility] [place] [address] * Transfuse RBC (05/22/2024 2:45 PM EDT) Saba Spears MD NURSING TREATMENT O RDERABLES - BLOOD ADMIN * UPPER GI ENDOSCOPY (05/22/2024 12:48 PM EDT) UPPER GI ENDOSCOPY [facility] Endoscopy ___ Procedure Date: 05/22/2024 12:48 PM ? Patient Name: Jossy Shanks ? [facility]: [id number] ? Date of : 1955 ? Age: 69 ? Order #: [id number] ? Instrument Name: [id number] ? ___ Procedure: ? Upper GI endoscopy [...] Recheck Progress Complete 05/22/2024 1:01 PM EDT [facility] Blood VENOUS BLOOD SPECIMEN / Unknown IP Care Team Draw / Unknown 05/22/2024 11:18 AM EDT 05/22/2024 11:27 AM EDT Saba Spears MD BLOOD BANK LAB GWENDOLYNE MURRAY [facility] [place] [address] * Type and screen ([facility]/BRINA/TARA) (05/22/2024 11:18 AM EDT) ABORH Type O POSITIVE 05/22/2024 12:31 PM EDT [facility] PATIENT HISTORY Found 05/22/2024 12:31 PM EDT [facility] Expires at [id number] on: 05-22-2024 05/22/2024 12:31 PM EDT [facility] ANTIBODY SCREEN AUTOMATED Negative 05/22/2024 12:31 PM EDT [facility] T&S only valid at [facility] 05/22/2024 12:31 PM EDT [facility] Blood VENOUS BLOOD SPECIMEN / Unknown IP Care Team Draw / Unknown 05/22/2024 11:18 AM EDT 05/22/2024 11:27 AM EDT Narrative [facility] - 05/22/2024 12:31 PM EDT This Type and Screen result is only valid at the [facility] Saba Spears MD BLOOD BANK LAB ORDE RABLES Performing Organization Address [facility] Co de Phone Number [facility] [place] [address] * (ABNORMAL) Hemoglobin and Hematocrit, blood (05/22/2024 11:18 AM EDT) Hemoglobin 6.9(L) 13.7 - 16.5 g/dL 05/22/2024 12:02 PM EDT [facility] Hematocrit 21.4(L) 40.5 - 48.5 % 05/22/2024 12:02 PM EDT [facility] Blood VENOUS BLOOD SPECIMEN / Unknown IP Care Team Draw / Unknown 05/22/2024 11:18 AM EDT 05/22/2024 11:36 AM EDT Saba Spears MD HEMATOLOGY ORDERABL ES Performing Organization Address [facility] Co de Phone Number [facility] [place] [address] * POC, GLUCOSE (05/22/2024 11:14 AM EDT) Glucometer, POC 126 65 - 199 mg/dL 05/22/2024 11:17 AM EDT [facility] Comment:Supplemental ranges: <140 mg/dL before meals <180 mg/dL all other times of the day. Blood CAPILLARY BLOOD / Unknown 05/22/2024 11:14 AM EDT 05/22/2024 11:18 AM EDT Saba Spears MD POINT OF CARE TEST ORDERABLES Performing Organization Address [facility]/State/ZIP Co de Phone Number [facility] [place] [address] * POC, GLUCOSE (05/22/2024 8:07 AM EDT) Glucometer, POC 132 65 - 199 mg/dL 05/22/2024 8:08 AM EDT [facility] Comment:Supplemental ranges: <140 mg/dL before meals <180 mg/dL all other times of the day. Blood CAPILLARY BLOOD / Unknown 05/22/2024 8:07 AM EDT 05/22/2024 8:08 AM EDT Saba Spears MD POINT OF CARE TEST ORDERABLES [facility] [place] [address] * (ABNORMAL) Hepatic Function Panel (05/22/2024 5:18 AM EDT) [facility] Albumin 2.6(L) 3.2 - 5.2 g/dL 05/22/2024 9:50 AM EDT [facility] Aspartate Aminotransferase 18 <=39 unit/L 05/22/2024 9:50 AM EDT [facility] Alanine Aminotransferase 42 0 - 55 unit/L 05/22/2024 9:50 AM EDT [facility] Alkaline Phosphatase 84 40 - 130 unit/L 05/22/2024 9:50 AM EDT [facility] Bilirubin, Total <0.2 <=1.3 mg/dL 05/22/2024 9:50 AM EDT [facility] Bilirubin, Direct <0.2 0.0 - 0.3 mg/dL 05/22/2024 9:50 AM EDT [facility] Protein, Total 6.0(L) 6.1 - 8.0 g/dL 05/22/2024 9:50 AM EDT [facility] Blood VENOUS BLOOD SPECIMEN / Unknown IP Care Team Draw / Unknown 05/22/2024 5:18 AM EDT 05/22/2024 5:45 AM EDT Saba Spears MD CHEMISTRY ORDERABLE S Performing Organization Address [facility] Co de Phone Number [facility] [place] [address] * Magnesium (05/22/2024 5:18 AM EDT) Magnesium 0.93 0.69 - 1.07 mMol/L 05/22/2024 6:16 AM EDT [facility] Blood VENOUS BLOOD SPECIMEN / Unknown IP Care Team Draw / Unknown 05/22/2024 5:18 AM EDT 05/22/2024 5:45 AM EDT Mary De La Fuente MD CHEMISTRY ORDERABL ES Performing Organization Address [facility] de Phone Number [facility] [place] [address] * (ABNORMAL) Phosphorus (05/22/2024 5:18 AM EDT) Phosphorus 5.8(H) 2.5 - 4.5 mg/dL 05/22/2024 6:16 AM EDT [facility] Blood VENOUS BLOOD SPECIMEN / Unknown IP Care Team Draw / Unknown 05/22/2024 5:18 AM EDT 05/22/2024 5:45 AM EDT Mary De La Fuente MD CHEMISTRY ORDERABL ES Performing Organization Address [facility] Co de Phone Number [facility] [place] [address] * (ABNORMAL) Basic Metabolic Panel (05/22/2024 5:18 AM EDT) Glucose 121 65 - 199 mg/dL 05/22/2024 6:16 AM EDT [facility] Comment:Glucose Concentratio n >=200 mg/dL plus symptoms is consistent with Diabetes Mellitus. Blood Urea Nitrogen 97(H) 10 - 20 mg/dL 05/22/2024 6:16 AM [facility] Creatinine 2.77(H) 0.80 - 1.50 mg/dL 05/22/2024 6:16 AM [facility] Sodium 138 135 - 145 mMol/L 05/22/2024 6:16 AM [facility] Potassium 5.1(H) 3.5 - 5.0 mMol/L 05/22/2024 6:16 AM [facility] Chloride 110(H) 98 - 107 mMol/L 05/22/2024 6:16 AM [facility] Carbon Dioxide 20(L) 22 - 31 mMol/L 05/22/2024 6:16 AM [facility] Anion Gap 8 5 - 15 mMol/L 05/22/2024 6:16 AM [facility] Calcium 9.4 8.5 - 10.5 mg/dL 05/22/2024 6:16 AM [facility] Est Glomerular Filtration Rate - Male 24 mL/min/1. 73 m?? 05/22/2024 6:16 AM [facility] Comment: This patient's estimated GFR [...] Foundation Fasting Status No 05/22/2024 6:16 AM [facility] Blood VENOUS BLOOD SPECIMEN / Unknown IP Care Team Draw / Unknown 05/22/2024 5:18 AM EDT 05/22/2024 5:45 AM EDT Mary De La Fuente MD CHEMISTRY ORDERABL ES [facility] [place] [address] * (ABNORMAL) CBC (with Diff) (05/22/2024 5:18 AM EDT) White Blood Cell 14.70(H) 4.00 - 9.50 x10(3)/mc L 05/22/2024 5:52 AM EDT [facility] Red Blood Cell 2.37(L) 4.58 - 5.54 x10(6)/mc L 05/22/2024 5:52 AM EDT [facility] Hemoglobin 7.2(L) 13.7 - 16.5 g/dL 05/22/2024 5:52 AM EDT [facility] Hematocrit 22.1(L) 40.5 - 48.5 % 05/22/2024 5:52 AM EDT [facility] Mean Cell Volume 93.2(H) 82.9 - 93.1 fL 05/22/2024 5:52 AM EDT [facility] Mean Cell Hemoglobin 30.4 27.5 - 32.1 pg 05/22/2024 5:52 AM EDT [facility] Mean Cell Hemoglobin Concentration 32.6 32.0 - 35.7 g/dL 05/22/2024 5:52 AM EDT [facility] Platelet 366(H) 145 - 357 x10(3)/mc L 05/22/2024 5:52 AM EDT [facility] Mean Platelet Volume 10.9 7.6 - 12.9 fL 05/22/2024 5:52 AM EDT [facility] RDW Standard Deviation 54.6(H) 36.0 - 45.0 fL 05/22/2024 5:[facility] RDW coefficient of variation 16.3(H) 11.4 - 13.8 % 05/22/2024 5:52 AM EDT [facility] NRBC% auto 0.0 % 05/22/2024 5:52 AM [facility] NRBC Absolute 0.00 0.00 - 0.00 x10(3)/mc L 05/22/2024 5:52 AM [facility] Neutrophil % 83.2 % 05/22/2024 5:52 AM [facility] Neutrophil Absolute (ANC) - Automated 12.22(H) 1.70 - 6.10 x10(3)/mc L 05/22/2024 5:52 AM [facility] Lymph % 4.4 % 05/22/2024 5:52 AM [facility] Lymph Absolute 0.65(L) 0.90 - 3.20 x10(3)/mc L 05/22/2024 5:52 AM [facility] Monocyte % 9.7 % 05/22/2024 5:52 AM [facility] Monocyte Absolute 1.43(H) 0.30 - 0.90 x10(3)/mc L 05/22/2024 5:52 AM [facility] Eos % 1.9 % 05/22/2024 5:52 AM [facility] Eos Absolute 0.28 0.00 - 0.40 x10(3)/mc L 05/22/2024 5:52 AM [facility] Basophil % 0.2 % 05/22/2024 5:52 AM [facility] Baso Absolute 0.03 0.00 - 0.10 x10(3)/mc L 05/22/2024 5:52 AM [facility] Immature Gran % 0.6 % 5:52 AM [facility] Immature Gran Absolute 0.09(H) 0.00 - 0.04 x10(3)/mc L 05/22/2024 5:52 AM [facility] Blood VENOUS BLOOD SPECIMEN / Unknown IP Care Team Draw / Unknown 05/22/2024 5:18 AM EDT 05/22/2024 5:45 AM EDT Mary De La Fuente MD HEMATOLOGY ORDERAB LES Performing Organization Address [facility] Co de Phone Number [facility] [place] [address] * POC, GLUCOSE (05/22/2024 3:50 AM EDT) Glucometer, POC 140 65 - 199 mg/dL 05/22/2024 3:50 AM EDT [facility] Comment:Supplemental ranges: <140 mg/dL before meals <180 mg/dL all other times of the day. Blood CAPILLARY BLOOD / Unknown 05/22/2024 3:50 AM EDT 05/22/2024 3:50 AM EDT Saba Spears MD POINT OF CARE TEST ORDERABLES Performing Organization Address [facility] Co de Phone Number [facility] [place] [address] * Scan Doc: Lab (05/22/2024 12:00 AM EDT) Narrative 05/22/2024 12:00 AM EDT Ordered by an unspecified provider. Scanning Provider MEDIA MGR SCAN EXT O RDR/RSLT * POC, GLUCOSE (05/21/2024 11:28 PM EDT) Glucometer, POC 174 65 - 199 mg/dL 05/21/2024 11:28 PM EDT [facility] Comment:Supplemental ranges: <140 mg/dL before meals <180 mg/dL all other times of the day. Blood CAPILLARY BLOOD / Unknown 05/21/2024 11:28 PM EDT 05/21/2024 11:28 PM EDT Saba Spears MD POINT OF CARE TEST ORDERABLES Performing Organization Address [facility] Co de Phone Number [facility] [place] [address] * POC, GLUCOSE (05/21/2024 7:49 PM EDT) Glucometer, POC 161 65 - 199 mg/dL 05/21/2024 7:49 PM EDT [facility] Comment:Supplemental ranges: <140 mg/dL before meals <180 mg/dL all other times of the day. Blood CAPILLARY BLOOD / Unknown 05/21/2024 7:49 PM EDT 05/21/2024 7:49 PM EDT Saba Spears MD POINT OF CARE TEST ORDERABLES [facility] [place] [address] * POC, GLUCOSE (05/21/2024 5:18 PM EDT) Glucometer, POC 152 65 - 199 mg/dL 05/21/2024 5:18 PM EDT [facility] Comment:Supplemental ranges: <140 mg/dL before meals <180 mg/dL all other times of the day. Blood CAPILLARY BLOOD / Unknown 05/21/2024 5:18 PM EDT 05/21/2024 5:18 PM EDT Saba Spears MD POINT OF CARE TEST ORDERABLES Performing Organization Address City/[facility]/ZIP Co de Phone Number [facility] [place] [address] * (ABNORMAL) Hemogram (05/21/2024 3:00 PM EDT) White Blood Cell 14.25(H) 4.00 - 9.50 x10(3)/mc L 05/21/2024 3:41 PM EDT [facility] Red Blood Cell 2.61(L) 4.58 - 5.54 x10(6)/mc L 05/21/2024 3:41 PM EDT [facility] Hemoglobin 7.8(L) 13.7 - 16.5 g/dL 05/21/2024 3:41 PM EDT [facility] Hematocrit 24.5(L) 40.5 - 48.5 % 05/21/2024 3:41 PM EDT [facility] Mean Cell Volume 93.9(H) 82.9 - 93.1 fL 05/21/2024 3:41 PM EDT [facility] Mean Cell Hemoglobin 29.9 27.5 - 32.1 pg 05/21/2024 3:41 PM EDT [facility] Mean Cell Hemoglobin Concentration 31.8(L) 32.0 - 35.7 g/dL 05/21/2024 3:41 PM EDT [facility] Platelet 456(H) 145 - 357 x10(3)/mc L 05/21/2024 3:41 PM EDT [facility] Mean Platelet Volume 11.1 7.6 - 12.9 fL 05/21/2024 3:41 PM EDT [facility] RDW Standard Deviation 55.2(H) 36.0 - 45.0 fL 05/21/2024 3:41 PM EDT [facility] RDW coefficient of variation 16.1(H) 11.4 - 13.8 % 05/21/2024 3:41 PM EDT [facility] NRBC% auto 0.0 % 05/21/2024 3:41 PM EDT [facility] NRBC Absolute 0.00 0.00 - 0.00 x10(3)/mc L 05/21/2024 3:41 PM EDT [facility] Blood VENOUS BLOOD SPECIMEN / Unknown IP Care Team Draw / Unknown 05/21/2024 3:00 PM EDT 05/21/2024 3:36 PM EDT Saba Spears MD HEMATOLOGY ORDERABL ES [facility] [place] [address] * POC, GLUCOSE (05/21/2024 12:39 PM EDT) [facility] Signature Glucometer, POC 144 65 - 199 mg/dL 05/21/2024 12:39 PM EDT [facility] Comment:Supplemental ranges: <140 mg/dL before meals <180 mg/dL all other times of the day. Blood CAPILLARY BLOOD / Unknown 05/21/2024 12:39 PM EDT 05/21/2024 12:39 PM EDT Saba Spears MD POINT OF CARE TEST ORDERABLES [facility] [place] [address] * IR Tunneled Central Venous Access Non-Dialysis (05/21/2024 12:11 PM EDT) Anatomical Region Laterality Modality Chest, Vascular X-Ray Angiograph y Narrative 05/21/2024 5:12 PM EDT Table formatting from the original result was not included. Images from the original result were not included. IR PROCEDURE NOTE Procedure: Tunneled central venous catheter placement. Indication for Procedure: Per Allyn MIMS, Guanakojaren Allyssa Rimma is a 69 y.o. male with PMH of CKD, DM, COPD, A.fib, admitted for RLE cellulitis and osteomyelitis s/p 2ng toe amputation requiring intermediate IV antibiotic administration who presents to Interventional [...] catheter ready for use. Resident/Fellow: None. Attending: IDr. Flowers performed this procedure. ?? I was present during the intraservice time as documented by the IR Nurse. ? Saba Spears MD IMG IR ORDERABLES * POC, GLUCOSE (05/21/2024 9:12 AM EDT) Glucometer, POC 144 65 - 199 mg/dL 05/21/2024 9:12 AM EDT [facility] Comment:Supplemental ranges: <140 mg/dL before meals <180 mg/dL all other times of the day. Blood CAPILLARY BLOOD / Unknown 05/21/2024 9:12 AM EDT 05/21/2024 9:12 AM EDT Saba Spears MD POINT OF CARE TEST ORDERABLES [facility] [place] [address] * POC, GLUCOSE (05/21/2024 8:32 AM EDT) Glucometer, POC 135 65 - 199 mg/dL 05/21/2024 8:32 AM EDT [facility] Comment:Supplemental ranges: <140 mg/dL before meals <180 mg/dL all other times of the day. Blood CAPILLARY BLOOD / Unknown 05/21/2024 8:32 AM EDT 05/21/2024 8:32 AM EDT Saba Spears MD POINT OF CARE TEST ORDERABLES [facility] [place] [address] * (ABNORMAL) Hemogram (05/21/2024 8:27 AM EDT) White Blood Cell 15.77(H) 4.00 - 9.50 x10(3)/mc L 05/21/2024 8:54 AM EDT [facility] Red Blood Cell 2.47(L) 4.58 - 5.54 x10(6)/mc L 05/21/2024 8:54 AM EDT [facility] Hemoglobin 7.5(L) 13.7 - 16.5 g/dL 05/21/2024 8:54 AM EDT [facility] Hematocrit 23.0(L) 40.5 - 48.5 % 05/21/2024 8:54 AM EDT [facility] Mean Cell Volume 93.1 82.9 - 93.1 fL 05/21/2024 8:54 AM EDT [facility] Mean Cell Hemoglobin 30.4 27.5 - 32.1 pg 05/21/2024 8:54 AM EDT [facility] Mean Cell Hemoglobin Concentration 32.6 32.0 - 35.7 g/dL 05/21/2024 8:54 AM EDT [facility] Platelet 398(H) 145 - 357 x10(3)/mc L 05/21/2024 8:54 AM EDT [facility] Mean Platelet Volume 10.8 7.6 - 12.9 fL 05/21/2024 8:54 AM EDT [facility] RDW Standard Deviation 54.6(H) 36.0 - 45.0 fL 05/21/2024 8:54 AM EDT [facility] RDW coefficient of variation 16.1(H) 11.4 - 13.8 % 05/21/2024 8:54 AM EDT [facility] NRBC% auto 0.0 % 05/21/2024 8:54 AM EDT [facility] NRBC Absolute 0.00 0.00 - 0.00 x10(3)/mc L 05/21/2024 8:54 AM EDT [facility] Blood VENOUS BLOOD SPECIMEN / Unknown IP Care Team Draw / Unknown 05/21/2024 8:27 AM EDT 05/21/2024 8:42 AM EDT Saba Spears MD HEMATOLOGY ORDERABL ES Performing Organization Address City/[facility]/ZIP Co de Phone Number [facility] [place] [address] * (ABNORMAL) CRP, acute inflammation (05/21/2024 4:58 AM EDT) C-Reactive Protein 14.1(H) <=4.9 mg/L 05/21/2024 10:05 AM EDT [facility] Blood VENOUS BLOOD SPECIMEN / Unknown IP Care Team Draw / Unknown 05/21/2024 4:58 AM EDT 05/21/2024 5:17 AM EDT Saba Spears MD CHEMISTRY ORDERABLE S [facility] [place] [address] * Magnesium (05/21/2024 4:58 AM EDT) Magnesium 0.99 0.69 - 1.07 mMol/L 05/21/2024 5:51 AM EDT [facility] Blood VENOUS BLOOD SPECIMEN / Unknown IP Care Team Draw / Unknown 05/21/2024 4:58 AM EDT 05/21/2024 5:17 AM EDT Mary De La Fuente MD CHEMISTRY ORDERABL ES Performing Organization Address City/[facility]/ZIP Co de Phone Number [facility] [place] [address] * (ABNORMAL) Phosphorus (05/21/2024 4:58 AM EDT) Phosphorus 6.2(H) 2.5 - 4.5 mg/dL 05/21/2024 5:51 AM EDT [facility] Blood VENOUS BLOOD SPECIMEN / Unknown IP Care Team Draw / Unknown 05/21/2024 4:58 AM EDT 05/21/2024 5:17 AM EDT Mary De La Fuente MD CHEMISTRY ORDERABL ES Performing Organization Address City/[facility]/ZIP Co de Phone Number [facility] [place] [address] * (ABNORMAL) Basic Metabolic Panel (05/21/2024 4:58 AM EDT) Glucose 151 65 - 199 mg/dL 05/21/2024 5:51 AM EDT [facility] Comment:Glucose Concentratio n >=200 mg/dL plus symptoms is consistent with Diabetes Mellitus. Blood Urea Nitrogen 110(H) 10 - 20 mg/dL 05/21/2024 5:51 AM EDT [facility] Creatinine 3.04(H) 0.80 - 1.50 mg/dL 05/21/2024 5:51 AM EDT [facility] Sodium 138 135 - 145 mMol/L 05/21/2024 5:51 AM EDT [facility] Potassium 5.1(H) 3.5 - 5.0 mMol/L 05/21/2024 5:51 AM EDT [facility] Chloride 111(H) 98 - 107 mMol/L 05/21/2024 5:51 AM EDT [facility] Carbon Dioxide 18(L) 22 - 31 mMol/L 05/21/2024 5:51 AM EDT [facility] Anion Gap 9 5 - 15 mMol/L 05/21/2024 5:51 AM EDT [facility] Calcium 9.4 8.5 - 10.5 mg/dL 05/21/2024 5:51 AM EDT [facility] Est Glomerular Filtration Rate - Male 21 mL/min/1. 73 m?? 05/21/2024 5:51 AM EDT [facility] Comment: This patient's estimated GFR [...] Fasting Status No 05/21/2024 5:51 AM EDT [facility] Blood VENOUS BLOOD SPECIMEN / Unknown IP Care Team Draw / Unknown 05/21/2024 4:58 AM EDT 05/21/2024 5:17 AM EDT Mary De La Fuente MD CHEMISTRY ORDERABL ES [facility] [place] [address] * (ABNORMAL) CBC (with Diff) (05/21/2024 4:58 AM EDT) White Blood Cell 14.49(H) 4.00 - 9.50 x10(3)/mc L 05/21/2024 5:28 AM EDT [facility] Red Blood Cell 2.54(L) 4.58 - 5.54 x10(6)/mc L 05/21/2024 5:28 AM EDT [facility] Hemoglobin 7.5(L) 13.7 - 16.5 g/dL 05/21/2024 5:28 AM EDT [facility] Hematocrit 23.6(L) 40.5 - 48.5 % 05/21/2024 5:28 AM [facility] Mean Cell Volume 92.9 82.9 - 93.1 fL 05/21/2024 5:28 AM [facility] Mean Cell Hemoglobin 29.5 27.5 - 32.1 pg 05/21/2024 5:28 AM [facility] Mean Cell Hemoglobin Concentration 31.8(L) 32.0 - 35.7 g/dL 05/21/2024 5:28 AM [facility] Platelet 388(H) 145 - 357 x10(3)/mc L 05/21/2024 5:28 AM [facility] Mean Platelet Volume 10.8 7.6 - 12.9 fL 05/21/2024 5:28 AM [facility] RDW Standard Deviation 53.6(H) 36.0 - 45.0 fL 05/21/2024 5:28 AM [facility] RDW coefficient of variation 16.0(H) 11.4 - 13.8 % 05/21/2024 5:28 AM [facility] NRBC% auto 0.0 % 05/21/2024 5:28 AM [facility] NRBC Absolute 0.00 0.00 - 0.00 x10(3)/mc L 05/21/2024 5:28 AM [facility] Neutrophil % 81.6 % 05/21/2024 5:28 AM [facility] Neutrophil Absolute (ANC) - Automated 11.83(H) 1.70 - 6.10 x10(3)/mc L 05/21/2024 5:28 AM [facility] Lymph % 6.1 % 05/21/2024 5:28 AM [facility] Lymph Absolute 0.89(L) 0.90 - 3.20 x10(3)/mc L 05/21/2024 5:28 AM [facility] Monocyte % 9.4 % 05/21/2024 5:28 AM EDT [facility] Monocyte Absolute 1.36(H) 0.30 - 0.90 x10(3)/mc L 05/21/2024 5:28 AM EDT [facility] Eos % 2.1 % 05/21/2024 5:28 AM EDT [facility] Eos Absolute 0.30 0.00 - 0.40 x10(3)/mc L 05/21/2024 5:28 AM EDT [facility] Basophil % 0.2 % 05/21/2024 5:28 AM EDT [facility] Baso Absolute 0.03 0.00 - 0.10 x10(3)/mc L 05/21/2024 5:28 AM EDT [facility] Immature Gran % 0.6 % 5:28 AM EDT [facility] Immature Gran Absolute 0.08(H) 0.00 - 0.04 x10(3)/mc L 05/21/2024 5:28 AM EDT [facility] Blood VENOUS BLOOD SPECIMEN / Unknown IP Care Team Draw / Unknown 05/21/2024 4:58 AM EDT 05/21/2024 5:17 AM EDT Mary De La Fuente MD HEMATOLOGY ORDERAB LES [facility] [place] [address] * POC, GLUCOSE (05/21/2024 3:45 AM EDT) [facility] Signature Glucometer, POC 155 65 - 199 mg/dL 05/21/2024 3:45 AM EDT [facility] Comment:Supplemental ranges: <140 mg/dL before meals <180 mg/dL all other times of the day. Blood CAPILLARY BLOOD / Unknown 05/21/2024 3:45 AM EDT 05/21/2024 3:46 AM EDT Saba Spears MD POINT OF CARE TEST ORDERABLES [facility] [place] [address] * POC, GLUCOSE (05/20/2024 11:44 PM EDT) Glucometer, POC 132 65 - 199 mg/dL 05/20/2024 11:44 PM EDT [facility] Comment:Supplemental ranges: <140 mg/dL before meals <180 mg/dL all other times of the day. Blood CAPILLARY BLOOD / Unknown 05/20/2024 11:44 PM EDT 05/20/2024 11:44 PM EDT Saba Spears MD POINT OF CARE TEST ORDERABLES Performing Organization Address City/[facility]/ZIP Co de Phone Number [facility] [place] [address] * POC, GLUCOSE (05/20/2024 7:24 PM EDT) Glucometer, POC 166 65 - 199 mg/dL 05/20/2024 7:24 PM EDT [facility] Comment:Supplemental ranges: <140 mg/dL before meals <180 mg/dL all other times of the day. Blood CAPILLARY BLOOD / Unknown 05/20/2024 7:24 PM EDT 05/20/2024 7:25 PM EDT Saba Spears MD POINT OF CARE TEST ORDERABLES [facility] [place] [address] * POC, GLUCOSE (05/20/2024 4:24 PM EDT) Glucometer, POC 170 65 - 199 mg/dL 05/20/2024 4:24 PM EDT [facility] Comment:Supplemental ranges: <140 mg/dL before meals <180 mg/dL all other times of the day. Blood CAPILLARY BLOOD / Unknown 05/20/2024 4:24 PM EDT 05/20/2024 4:24 PM EDT Saba Spears MD POINT OF CARE TEST ORDERABLES [facility] [place] [address] * (ABNORMAL) Hemogram (05/20/2024 12:35 PM EDT) White Blood Cell 14.66(H) 4.00 - 9.50 x10(3)/mc L 05/20/2024 12:50 PM EDT [facility] Red Blood Cell 2.81(L) 4.58 - 5.54 x10(6)/mc L 05/20/2024 12:50 PM EDT [facility] Hemoglobin 8.4(L) 13.7 - 16.5 g/dL 05/20/2024 12:50 PM EDT [facility] Hematocrit 26.2(L) 40.5 - 48.5 % 05/20/2024 12:50 PM EDT [facility] Mean Cell Volume 93.2(H) 82.9 - 93.1 fL 05/20/2024 12:50 PM EDT [facility] Mean Cell Hemoglobin 29.9 27.5 - 32.1 pg 05/20/2024 12:50 PM EDT [facility] Mean Cell Hemoglobin Concentration 32.1 32.0 - 35.7 g/dL 05/20/2024 12:50 PM EDT [facility] Platelet 416(H) 145 - 357 x10(3)/mc L 05/20/2024 12:50 PM EDT [facility] Mean Platelet Volume 10.4 7.6 - 12.9 fL 05/20/2024 12:50 PM EDT [facility] RDW Standard Deviation 52.9(H) 36.0 - 45.0 fL 05/20/2024 12:50 PM EDT [facility] RDW coefficient of variation 15.6(H) 11.4 - 13.8 % 05/20/2024 12:50 PM EDT [facility] NRBC% auto 0.0 % 05/20/2024 12:50 PM EDT [facility] NRBC Absolute 0.00 0.00 - 0.00 x10(3)/mc L 05/20/2024 12:50 PM EDT [facility] Blood VENOUS BLOOD SPECIMEN / Unknown IP Care Team Draw / Unknown 05/20/2024 12:35 PM EDT 05/20/2024 12:43 PM EDT Saba Spears MD HEMATOLOGY ORDERABL ES Performing Organization Address City/[facility]/ZIP Co de Phone Number [facility] [place] [address] * POC, GLUCOSE (05/20/2024 11:52 AM EDT) Pathologist vIPtela Glucometer, POC 176 65 - 199 mg/dL 05/20/2024 11:52 AM EDT [facility] Comment:Supplemental ranges: <140 mg/dL before meals <180 mg/dL all other times of the day. Blood CAPILLARY BLOOD / Unknown 05/20/2024 11:52 AM EDT 05/20/2024 11:52 AM EDT Saba Spears MD POINT OF CARE TEST ORDERABLES [facility] [place] [address] * US Retroperitoneal Complete (05/20/2024 10:36 AM EDT) Pathologist vIPtela WORKSTATION ID [id number] RAD Anatomical Region Laterality Modality Abdomen Ultrasound [...] AM Electronically signed by: Teofilo Ruiz MD, [facility] ([phone]), at 05/20/2024 11:30 AM Thank you for letting us participate in the care of this patient. If you are a health care provider and have any questions regarding this report, please contact the number above. For patients who have questions, please contact the health caretaker grounds that requested your imaging first. ?Teofilo Ruiz, Staff Physician Electronically Signed Final Report ?? 05/20/2024 11:36 am Narrative 05/20/2024 11:37 AM EDT Renal ? (Signed Final 05/20/2024 11:36 am) PATIENT INFO: ID #: ? [id number] ?: ??[birth year] (69 yrs)(M) Name: ? JOSSY Spivey RIMMA ? Visit Date: 05/20/2024 10:34 am PERFORMED BY: Attending: ?Joseph SOTOMAYOR, Teofilo Flores Resident: ? Kuldeep SOTOMAYOR, Trinidad Wright Performed By: ? Lulu Shin RDMS Referred By: ?SABA SPEARS Location: ? [place] SERVICE(S) PROVIDED: URETRO - Retroperitoneal Complete - [id number] ? [id number] INDICATIONS: CKD, increase BUN TECHNIQUE/SCAN QUALITY: Scan [...] 05/20/2024 11:36 am) PATIENT INFO: ID #: [id number] : [birth year] (69 yrs)(M) Name: JOSSY SHANKS Visit Date: 05/20/2024 10:34 am PERFORMED BY: Attending: Teofilo Ruiz MD Resident: Trinidad Light MD Performed By: Lulu Shin RDMS Referred By: SABA SPEARS Location: [place] SERVICE(S) PROVIDED: URETRO - Retroperitoneal Complete - [id number] INDICATIONS: CKD, increase BUN TECHNIQUE/SCAN QUALITY: Scan [...] AM Electronically signed by: Teofilo Ruiz MD, [facility] ([phone]), at 05/20/2024 11:30 AM Thank you for letting us participate in the care of this patient. If you are a health care provider and have any questions regarding this report, please contact the number above. For patients who have questions, please contact the health caretaker grounds that requested your imaging first. Teofilo Ruiz, Staff Physician Electronically Signed Final Report 05/20/2024 11:36 am Saba Spears MD IM US GEN ORDERABL ES * POC, GLUCOSE (05/20/2024 8:03 AM EDT) [facility] Signature Glucometer, POC 180 65 - 199 mg/dL 05/20/2024 8:03 AM EDT [facility] Comment:Supplemental ranges: <140 mg/dL before meals <180 mg/dL all other times of the day. Blood CAPILLARY BLOOD / Unknown 05/20/2024 8:03 AM EDT 05/20/2024 8:03 AM EDT Saba Spears MD POINT OF CARE TEST ORDERABLES Performing Organization Address City/[facility]/ZIP Co de Phone Number [facility] [place] [address] * Magnesium (05/20/2024 4:27 AM EDT) Magnesium 0.99 0.69 - 1.07 mMol/L 05/20/2024 5:27 AM EDT [facility] Blood VENOUS BLOOD SPECIMEN / Unknown IP Care Team Draw / Unknown 05/20/2024 4:27 AM EDT 05/20/2024 4:52 AM EDT Mary De La Fuente MD CHEMISTRY ORDERABL ES Performing Organization Address [facility]/[employer] [facility] Co de Phone Number [facility] [place] [address] * (ABNORMAL) Phosphorus (05/20/2024 4:27 AM EDT) Phosphorus 5.1(H) 2.5 - 4.5 mg/dL 05/20/2024 5:27 AM EDT [facility] Blood VENOUS BLOOD SPECIMEN / Unknown IP Care Team Draw / Unknown 05/20/2024 4:27 AM EDT 05/20/2024 4:52 AM EDT Mary De La Fuente MD CHEMISTRY ORDERABL ES Performing Organization Address [facility]/ZIP Co de Phone Number [facility] [place] [address] * (ABNORMAL) Basic Metabolic Panel (non-fasting) (05/20/2024 4:27 AM EDT) Glucose 173 65 - 199 mg/dL 05/20/2024 6:27 AM EDT [facility] Comment:Glucose Concentratio n >=200 mg/dL plus symptoms is consistent with Diabetes Mellitus. Blood Urea Nitrogen 121(H) 10 - 20 mg/dL 05/20/2024 6:27 AM EDT [facility] Creatinine 2.78(H) 0.80 - 1.50 mg/dL 05/20/2024 6:27 AM T [facility] Sodium 138 135 - 145 mMol/L 05/20/2024 6:27 AM [facility] Potassium 5.4(H) 3.5 - 5.0 mMol/L 05/20/2024 6:27 AM [facility] Chloride 109(H) 98 - 107 mMol/L 05/20/2024 6:27 AM [facility] Carbon Dioxide 18(L) 22 - 31 mMol/L 05/20/2024 6:27 AM [facility] Anion Gap 11 5 - 15 mMol/L 05/20/2024 6:27 AM [facility] Calcium 9.4 8.5 - 10.5 mg/dL 05/20/2024 6:27 AM [facility] Est Glomerular Filtration Rate - Male 24 mL/min/1. 73 m?? 05/20/2024 6:27 AM [facility] Comment: This patient's estimated GFR [...] Foundation Fasting Status No 05/20/2024 6:27 AM T [facility] Blood VENOUS BLOOD SPECIMEN / Unknown IP Care Team Draw / Unknown 05/20/2024 4:27 AM EDT 05/20/2024 4:52 AM EDT Mary De La Fuente MD CHEMISTRY ORDERABL ES [facility] [place] [address] * (ABNORMAL) CBC (with Diff) (05/20/2024 4:27 AM EDT) White Blood Cell 15.20(H) 4.00 - 9.50 x10(3)/mc L 05/20/2024 5:32 AM [facility] Red Blood Cell 2.69(L) 4.58 - 5.54 x10(6)/mc L 05/20/2024 5:32 AM [facility] Hemoglobin 7.9(L) 13.7 - 16.5 g/dL 05/20/2024 5:32 AM [facility] Hematocrit 25.5(L) 40.5 - 48.5 % 05/20/2024 5:32 AM [facility] Mean Cell Volume 94.8(H) 82.9 - 93.1 fL 05/20/2024 5:32 AM [facility] Mean Cell Hemoglobin 29.4 27.5 - 32.1 pg 05/20/2024 5:32 AM [facility] Mean Cell Hemoglobin Concentration 31.0(L) 32.0 - 35.7 g/dL 05/20/2024 5:32 AM [facility] Platelet 403(H) 145 - 357 x10(3)/mc L 05/20/2024 5:32 AM [facility] Mean Platelet Volume 10.7 7.6 - 12.9 fL 05/20/2024 5:32 AM [facility] RDW Standard Deviation 54.7(H) 36.0 - 45.0 fL 05/20/2024 5:32 AM [facility] RDW coefficient of variation 15.8(H) 11.4 - 13.8 % 05/20/2024 5:32 AM [facility] NRBC% auto 0.0 % 05/20/2024 5:32 AM [facility] NRBC Absolute 0.00 0.00 - 0.00 x10(3)/mc L 05/20/2024 5:32 AM EDT [facility] Neutrophil % 82.1 % 05/20/2024 5:[facility] Neutrophil Absolute (ANC) - Automated 12.49(H) 1.70 - 6.10 x10(3)/mc L 05/20/2024 5:32 AM EDT [facility] Lymph % 6.3 % 05/20/2024 5:32 AM EDT [facility] Lymph Absolute 0.96 0.90 - 3.20 x10(3)/mc L 05/20/2024 5:32 AM EDT [facility] Monocyte % 8.7 % 05/20/2024 5:[facility] Monocyte Absolute 1.32(H) 0.30 - 0.90 x10(3)/mc L 05/20/2024 5:32 AM EDT [facility] Eos % 2.0 % 05/20/2024 5:32 AM EDT [facility] Eos Absolute 0.30 0.00 - 0.40 x10(3)/mc L 05/20/2024 5:32 AM EDT [facility] Basophil % 0.3 % 05/20/2024 5:32 AM EDT [facility] Baso Absolute 0.04 0.00 - 0.10 x10(3)/mc L 05/20/2024 5:32 AM EDT [facility] Immature Gran % 0.6 % 5:32 AM T [facility] Immature Gran Absolute 0.09(H) 0.00 - 0.04 x10(3)/mc L 05/20/2024 5:32 AM [facility] Blood VENOUS BLOOD SPECIMEN / Unknown IP Care Team Draw / Unknown 05/20/2024 4:27 AM EDT 05/20/2024 4:52 AM EDT Mary De La Fuente MD HEMATOLOGY ORDERAB LES Performing Organization Address [facility] Co de Phone Number [facility] [place] [address] * POC, GLUCOSE (05/20/2024 3:11 AM EDT) Glucometer, POC 163 65 - 199 mg/dL 05/20/2024 3:12 AM EDT [facility] Comment:Supplemental ranges: <140 mg/dL before meals <180 mg/dL all other times of the day. Blood CAPILLARY BLOOD / Unknown 05/20/2024 3:11 AM EDT 05/20/2024 3:12 AM EDT Saba Spears MD POINT OF CARE TEST ORDERABLES Performing Organization Address [facility] Co de Phone Number [facility] [place] [address] * POC, GLUCOSE (05/19/2024 11:07 PM EDT) Glucometer, POC 136 65 - 199 mg/dL 05/19/2024 11:07 PM EDT [facility] Comment:Supplemental ranges: <140 mg/dL before meals <180 mg/dL all other times of the day. Blood CAPILLARY BLOOD / Unknown 05/19/2024 11:07 PM EDT 05/19/2024 11:07 PM EDT Saba Spears MD POINT OF CARE TEST ORDERABLES Performing Organization Address City/[facility]/ZIP Co de Phone Number [facility] [place] [address] * POC, GLUCOSE (05/19/2024 8:20 PM EDT) Glucometer, POC 150 65 - 199 mg/dL 05/19/2024 8:20 PM EDT [facility] Comment:Supplemental ranges: <140 mg/dL before meals <180 mg/dL all other times of the day. Blood CAPILLARY BLOOD / Unknown 05/19/2024 8:20 PM EDT 05/19/2024 8:21 PM EDT Saba Spears MD POINT OF CARE TEST ORDERABLES [facility] [place] [address] * (ABNORMAL) Iron and TIBC (05/19/2024 5:09 PM EDT) Iron 58 45 - 160 mcg/dL 05/19/2024 6:56 PM EDT [facility] Unsaturated Iron Binding Capacity 143 110 - 370 mcg/dL 05/19/2024 6:56 PM EDT [facility] TIBC 201(L) 250 - 450 mcg/dL 05/19/2024 6:56 PM EDT [facility] Iron Saturation 29 20 - 50 % 6:56 PM EDT [facility] Blood VENOUS BLOOD SPECIMEN / Unknown IP Care Team Draw / Unknown 05/19/2024 5:09 PM EDT 05/19/2024 5:43 PM EDT Saba Spears MD CHEMISTRY ORDERABLE S Performing Organization Address City/[facility]/ZIP Co de Phone Number [facility] [place] [address] * PTH (05/19/2024 5:09 PM EDT) Parathyroid Hormone 27 15 - 65 pg/mL 05/19/2024 6:15 PM EDT [facility] Blood VENOUS BLOOD SPECIMEN / Unknown IP Care Team Draw / Unknown 05/19/2024 5:09 PM EDT 05/19/2024 5:43 PM EDT Saba Spears MD CHEMISTRY ORDERABLE S [facility] [place] [address] * Ferritin (05/19/2024 5:08 PM EDT) Ferritin 191 31 - 409 ng/ml 05/19/2024 6:24 PM EDT [facility] Blood VENOUS BLOOD SPECIMEN / Unknown IP Care Team Draw / Unknown 05/19/2024 5:08 PM EDT 05/19/2024 5:43 PM EDT Saba Spears MD CHEMISTRY ORDERABLE S [facility] [place] [address] * POC, GLUCOSE (05/19/2024 3:59 PM EDT) Glucometer, POC 185 65 - 199 mg/dL 05/19/2024 3:59 PM EDT [facility] Comment:Supplemental ranges: <140 mg/dL before meals <180 mg/dL all other times of the day. Blood CAPILLARY BLOOD / Unknown 05/19/2024 3:59 PM EDT 05/19/2024 3:59 PM EDT Saba Spears MD POINT OF CARE TEST ORDERABLES Performing Organization Address City/[facility]/ZIP Co de Phone Number [facility] [place] [address] * POC, GLUCOSE (05/19/2024 12:32 PM EDT) Glucometer, POC 143 65 - 199 mg/dL 05/19/2024 12:32 PM EDT [facility] Comment:Supplemental ranges: <140 mg/dL before meals <180 mg/dL all other times of the day. Blood CAPILLARY BLOOD / Unknown 05/19/2024 12:32 PM EDT 05/19/2024 12:32 PM EDT Saba Spears MD POINT OF CARE TEST ORDERABLES [facility] [place] [address] * POC, GLUCOSE (05/19/2024 8:12 AM EDT) Glucometer, POC 181 65 - 199 mg/dL 05/19/2024 8:13 AM EDT [facility] Comment:Supplemental ranges: <140 mg/dL before meals <180 mg/dL all other times of the day. Blood CAPILLARY BLOOD / Unknown 05/19/2024 8:12 AM EDT 05/19/2024 8:13 AM EDT Saba Spears MD POINT OF CARE TEST ORDERABLES Performing Organization Address [facility] de Phone Number [facility] [place] [address] * (ABNORMAL) Magnesium (05/19/2024 5:11 AM EDT) Magnesium 1.08(H) 0.69 - 1.07 mMol/L 05/19/2024 5:58 AM EDT [facility] Blood VENOUS BLOOD SPECIMEN / Unknown IP Care Team Draw / Unknown 05/19/2024 5:11 AM EDT 05/19/2024 5:30 AM EDT Mary De La Fuente MD CHEMISTRY ORDERABL ES Performing Organization Address [facility] de Phone Number [facility] [place] [address] * (ABNORMAL) Phosphorus (05/19/2024 5:11 AM EDT) Phosphorus 5.1(H) 2.5 - 4.5 mg/dL 05/19/2024 5:58 AM EDT [facility] Blood VENOUS BLOOD SPECIMEN / Unknown IP Care Team Draw / Unknown 05/19/2024 5:11 AM EDT 05/19/2024 5:30 AM EDT Mary De La Fuente MD CHEMISTRY ORDERABL ES [facility] [place] [address] * (ABNORMAL) Basic Metabolic Panel (non-fasting) (05/19/2024 5:11 AM EDT) Glucose 162 65 - 199 mg/dL 05/19/2024 6:53 AM EDT [facility] Comment:Glucose Concentratio n >=200 mg/dL plus symptoms is consistent with Diabetes Mellitus. Blood Urea Nitrogen 118(H) 10 - 20 mg/dL 05/19/2024 6:53 AM EDT [facility] Creatinine 2.75(H) 0.80 - 1.50 mg/dL 05/19/2024 6:53 AM [facility] Sodium 136 135 - 145 mMol/L 05/19/2024 6:53 AM [facility] Potassium 5.2(H) 3.5 - 5.0 mMol/L 05/19/2024 6:53 [facility] Chloride 108(H) 98 - 107 mMol/L 05/19/2024 6:53 AM [facility] Carbon Dioxide 18(L) 22 - 31 mMol/L 05/19/2024 6:53 AM [facility] Anion Gap 10 5 - 15 mMol/L 05/19/2024 6:53 AM [facility] Calcium 9.3 8.5 - 10.5 mg/dL 05/19/2024 6:53 AM [facility] Est Glomerular Filtration Rate - Male 24 mL/min/1. 73 m?? 05/19/2024 6:53 AM [facility] Comment: This patient's estimated GFR [...] Fasting Status No 05/19/2024 6:53 AM EDT [facility] Blood VENOUS BLOOD SPECIMEN / Unknown IP Care Team Draw / Unknown 05/19/2024 5:11 AM EDT 05/19/2024 5:30 AM EDT Mary De La Fuente MD CHEMISTRY ORDERABL ES [facility] [place] [address] * (ABNORMAL) CBC (with Diff) (05/19/2024 5:11 AM EDT) White Blood Cell 12.77(H) 4.00 - 9.50 x10(3)/mc L 05/19/2024 5:37 AM EDT [facility] Red Blood Cell 3.11(L) 4.58 - 5.54 x10(6)/mc L 05/19/2024 5:37 AM [facility] Hemoglobin 9.3(L) 13.7 - 16.5 g/dL 05/19/2024 5:37 AM [facility] Hematocrit 28.9(L) 40.5 - 48.5 % 05/19/2024 5:37 AM [facility] Mean Cell Volume 92.9 82.9 - 93.1 fL 05/19/2024 5:37 AM [facility] Mean Cell Hemoglobin 29.9 27.5 - 32.1 pg 05/19/2024 5:37 AM [facility] Mean Cell Hemoglobin Concentration 32.2 32.0 - 35.7 g/dL 05/19/2024 5:37 AM [facility] Platelet 379(H) 145 - 357 x10(3)/mc L 05/19/2024 5:37 [facility] Mean Platelet Volume 10.2 7.6 - 12.9 fL 05/19/2024 5:37 AM [facility] RDW Standard Deviation 53.1(H) 36.0 - 45.0 fL 05/19/2024 5:37 AM [facility] RDW coefficient of variation 15.8(H) 11.4 - 13.8 % 05/19/2024 5:37 AM [facility] NRBC% auto 0.0 % 05/19/2024 5:37 AM [facility] NRBC Absolute 0.00 0.00 - 0.00 x10(3)/mc L 05/19/2024 5:37 AM [facility] Neutrophil % 78.9 % 05/19/2024 5:37 AM [facility] Neutrophil Absolute (ANC) - Automated 10.06(H) 1.70 - 6.10 x10(3)/mc L 05/19/2024 5:37 AM [facility] Lymph % 8.1 % 05/19/2024 5:37 AM [facility] Lymph Absolute 1.03 0.90 - 3.20 x10(3)/mc L 05/19/2024 5:37 AM [facility] Monocyte % 10.3 % 05/19/2024 5:37 AM [facility] Monocyte Absolute 1.32(H) 0.30 - 0.90 x10(3)/mc L 05/19/2024 5:37 AM [facility] Eos % 1.6 % 05/19/2024 5:37 AM [facility] Eos Absolute 0.21 0.00 - 0.40 x10(3)/mc L 05/19/2024 5:37 AM [facility] Basophil % 0.2 % 05/19/2024 5:37 AM [facility] Baso Absolute 0.03 0.00 - 0.10 x10(3)/mc L 05/19/2024 5:37 AM EDT [facility] Immature Gran % 0.9 % 5:37 AM EDT [facility] Immature Gran Absolute 0.12(H) 0.00 - 0.04 x10(3)/mc L 05/19/2024 5:37 AM EDT [facility] Blood VENOUS BLOOD SPECIMEN / Unknown IP Care Team Draw / Unknown 05/19/2024 5:11 AM EDT 05/19/2024 5:30 AM EDT Mary De La Fuente MD HEMATOLOGY ORDERAB LES Performing Organization Address City/[facility]/ZIP Co de Phone Number [facility] [place] [address] * POC, GLUCOSE (05/19/2024 3:27 AM EDT) Glucometer, POC 171 65 - 199 mg/dL 05/19/2024 3:28 AM EDT [facility] Comment:Supplemental ranges: <140 mg/dL before meals <180 mg/dL all other times of the day. Blood CAPILLARY BLOOD / Unknown 05/19/2024 3:27 AM EDT 05/19/2024 3:28 AM EDT Saba Spears MD POINT OF CARE TEST ORDERABLES Performing Organization Address City/[facility]/ZIP Co de Phone Number [facility] [place] [address] * POC, GLUCOSE (05/19/2024 12:02 AM EDT) Glucometer, POC 183 65 - 199 mg/dL 05/19/2024 12:02 AM EDT [facility] Comment:Supplemental ranges: <140 mg/dL before meals <180 mg/dL all other times of the day. Blood CAPILLARY BLOOD / Unknown 05/19/2024 12:02 AM EDT 05/19/2024 12:02 AM EDT Saba Spears MD POINT OF CARE TEST ORDERABLES Performing Organization Address City/[facility]/ZIP Co de Phone Number [facility] [place] [address] * (ABNORMAL) POC, GLUCOSE (05/18/2024 8:05 PM EDT) Glucometer, POC 207(H) 65 - 199 mg/dL 05/18/2024 8:06 PM EDT [facility] Comment:Supplemental ranges: <140 mg/dL before meals <180 mg/dL all other times of the day. Blood CAPILLARY BLOOD / Unknown 05/18/2024 8:05 PM EDT 05/18/2024 8:06 PM EDT Saba Spears MD POINT OF CARE TEST ORDERABLES Performing Organization Address [facility]/ZIP Co de Phone Number [facility] [place] [address] * POC, GLUCOSE (05/18/2024 6:14 PM EDT) Glucometer, POC 174 65 - 199 mg/dL 05/18/2024 6:15 PM EDT [facility] Comment:Supplemental ranges: <140 mg/dL before meals <180 mg/dL all other times of the day. Blood CAPILLARY BLOOD / Unknown 05/18/2024 6:14 PM EDT 05/18/2024 6:15 PM EDT Saba Spears MD POINT OF CARE TEST ORDERABLES Performing Organization Address City/[facility]/ZIP Co de Phone Number [facility] [place] [address] * (ABNORMAL) Basic Metabolic Panel (05/18/2024 5:04 PM EDT) Glucose 170 65 - 199 mg/dL 05/18/2024 6:14 PM EDT [facility] Comment:Glucose Concentratio n >=200 mg/dL plus symptoms is consistent with Diabetes Mellitus. Blood Urea Nitrogen 116(H) 10 - 20 mg/dL 05/18/2024 6:14 PM [facility] Creatinine 2.64(H) 0.80 - 1.50 mg/dL 05/18/2024 6:14 PM [facility] Sodium 139 135 - 145 mMol/L 05/18/2024 6:14 PM [facility] Potassium 5.4(H) 3.5 - 5.0 mMol/L 05/18/2024 6:14 PM [facility] Chloride 110(H) 98 - 107 mMol/L 05/18/2024 6:14 PM [facility] Carbon Dioxide 17(L) 22 - 31 mMol/L 05/18/2024 6:14 PM [facility] Anion Gap 12 5 - 15 mMol/L 05/18/2024 6:14 PM [facility] Calcium 9.2 8.5 - 10.5 mg/dL 05/18/2024 6:14 PM [facility] Est Glomerular Filtration Rate - Male 25 mL/min/1. 73 m?? 05/18/2024 6:14 PM [facility] Comment: This patient's estimated GFR [...] Foundation Fasting Status No 05/18/2024 6:14 PM [facility] Blood VENOUS BLOOD SPECIMEN / Unknown IP Care Team Draw / Unknown 05/18/2024 5:04 PM EDT 05/18/2024 5:11 PM EDT Saba A Seema MD CHEMISTRY ORDERABLE S Performing Organization Address City/[facility]/ZIP Co de Phone Number [facility] [place] [address] * (ABNORMAL) POC, GLUCOSE (05/18/2024 11:45 AM EDT) Glucometer, POC 211(H) 65 - 199 mg/dL 05/18/2024 11:45 AM EDT [facility] Comment:Supplemental ranges: <140 mg/dL before meals <180 mg/dL all other times of the day. Blood CAPILLARY BLOOD / Unknown 05/18/2024 11:45 AM EDT 05/18/2024 11:45 AM EDT Saba Spears MD POINT OF CARE TEST ORDERABLES Performing Organization Address [facility]/ZIP Co de Phone Number [facility] [place] [address] * C diff Screen (05/18/2024 11:31 AM EDT) C Diff Interp Negative Negative 05/18/2024 3:02 PM EDT [facility] Comment:Clostridioides diffi cile is not present in the specimen. If patient is having diarrhea suspected to be from an infectious cause, then Soap & Water Contact Precautions are still required. If patient is having diarrhea with no suspected infectious cause use standard precautions. C Diff PCR Negative Negative, Indeterminate 05/18/2024 3:02 PM EDT [facility] Stool STOOL SPECIMEN / Unknown Non Blood Collection / Unknown 05/18/2024 11:31 AM EDT 05/18/2024 12:09 PM EDT Saba Spears MD MICROBIOLOGY - GENE RAL ORDERABLES [facility] [place] [address] * C Diff PCR (05/18/2024 11:31 AM EDT) Stool STOOL SPECIMEN / Unknown Non Blood Collection / Unknown 05/18/2024 11:31 AM EDT 05/18/2024 12:09 PM EDT Saba Spears MD MICROBIOLOGY - GENE RAL ORDERABLES Performing Organization Address City/[facility]/ZIP Co de Phone Number [facility] [place] [address] * Creatinine, urine, random (05/18/2024 8:57 AM EDT) Creatinine, Urine 44 mg/dL 05/18/2024 9:36 AM EDT [facility] Urine URINE SPECIMEN / Unknown Non Blood Collection / Unknown 05/18/2024 8:57 AM EDT 05/18/2024 9:07 AM EDT Saba Spears MD URINE ORDERABLES Performing Organization Address [facility]/ZIP Co de Phone Number [facility] [place] [address] * Electrolytes, urine, random (05/18/2024 8:57 AM EDT) Sodium, Urine 50 mMol/L 05/18/2024 12:09 PM EDT [facility] Potassium, Urine 13 mMol/L 05/18/2024 12:09 PM EDT [facility] Chloride, Urine 35 mMol/L 05/18/2024 12:09 PM EDT [facility] Urine URINE SPECIMEN / Unknown Non Blood Collection / Unknown 05/18/2024 8:57 AM EDT 05/18/2024 9:07 AM EDT Saba Spears MD URINE ORDERABLES Performing Organization Address City/[facility]/ZIP Co de Phone Number [facility] [place] [address] * POC, GLUCOSE (05/18/2024 8:34 AM EDT) Glucometer, POC 182 65 - 199 mg/dL 05/18/2024 8:35 AM EDT [facility] Comment:Supplemental ranges: <140 mg/dL before meals <180 mg/dL all other times of the day. Blood CAPILLARY BLOOD / Unknown 05/18/2024 8:34 AM EDT 05/18/2024 8:35 AM EDT Saba Spears MD POINT OF CARE TEST ORDERABLES Performing Organization Address City/[facility] Co de Phone Number [facility] [place] [address] * POC, GLUCOSE (05/18/2024 4:10 AM EDT) Glucometer, POC 163 65 - 199 mg/dL 05/18/2024 4:10 AM EDT [facility] Comment:Supplemental ranges: <140 mg/dL before meals <180 mg/dL all other times of the day. Blood CAPILLARY BLOOD / Unknown 05/18/2024 4:10 AM EDT 05/18/2024 4:11 AM EDT Saba Spears MD POINT OF CARE TEST ORDERABLES Performing Organization Address [facility] Co de Phone Number [facility] [place] [address] * (ABNORMAL) CBC (with Diff) (05/18/2024 4:01 AM EDT) White Blood Cell 9.84(H) 4.00 - 9.50 x10(3)/mc L 05/18/2024 4:19 AM EDT [facility] Red Blood Cell 3.24(L) 4.58 - 5.54 x10(6)/mc L 05/18/2024 4:19 AM EDT [facility] Hemoglobin 9.6(L) 13.7 - 16.5 g/dL 05/18/2024 4:19 AM EDT [facility] Hematocrit 31.4(L) 40.5 - 48.5 % 05/18/2024 4:19 AM [facility] Mean Cell Volume 96.9(H) 82.9 - 93.1 fL 05/18/2024 4:19 AM [facility] Mean Cell Hemoglobin 29.6 27.5 - 32.1 pg 05/18/2024 4:19 AM [facility] Mean Cell Hemoglobin Concentration 30.6(L) 32.0 - 35.7 g/dL 05/18/2024 4:19 AM [facility] Platelet 335 145 - 357 x10(3)/mc L 05/18/2024 4:19 AM [facility] Mean Platelet Volume 10.3 7.6 - 12.9 fL 05/18/2024 4:19 AM [facility] RDW Standard Deviation 56.4(H) 36.0 - 45.0 fL 05/18/2024 4:19 AM [facility] RDW coefficient of variation 15.7(H) 11.4 - 13.8 % 05/18/2024 4:19 AM [facility] NRBC% auto 0.2 % 05/18/2024 4:19 AM [facility] NRBC Absolute 0.02(H) 0.00 - 0.00 x10(3)/mc L 05/18/2024 4:19 AM [facility] Neutrophil % 76.5 % 05/18/2024 4:19 AM [facility] Neutrophil Absolute (ANC) - Automated 7.52(H) 1.70 - 6.10 x10(3)/mc L 05/18/2024 4:19 AM [facility] Lymph % 8.0 % 05/18/2024 4:19 AM [facility] Lymph Absolute 0.79(L) 0.90 - 3.20 x10(3)/mc L 05/18/2024 4:19 AM [facility] Monocyte % 12.5 % 05/18/2024 4:19 AM EDT [facility] Monocyte Absolute 1.23(H) 0.30 - 0.90 x10(3)/mc L 05/18/2024 4:19 AM EDT [facility] Eos % 1.9 % 05/18/2024 4:19 AM EDT [facility] Eos Absolute 0.19 0.00 - 0.40 x10(3)/mc L 05/18/2024 4:19 AM EDT [facility] Basophil % 0.2 % 05/18/2024 4:19 AM EDT [facility] Baso Absolute 0.02 0.00 - 0.10 x10(3)/mc L 05/18/2024 4:19 AM EDT [facility] Immature Gran % 0.9 % 4:19 AM EDT [facility] Immature Gran Absolute 0.09(H) 0.00 - 0.04 x10(3)/mc L 05/18/2024 4:19 AM EDT [facility] Blood VENOUS BLOOD SPECIMEN / Unknown IP Care Team Draw / Unknown 05/18/2024 4:01 AM EDT 05/18/2024 4:13 AM EDT Mary De La Fuente MD HEMATOLOGY ORDERAB LES [facility] [place] [address] * (ABNORMAL) Magnesium (05/18/2024 4:00 AM EDT) Magnesium 1.09(H) 0.69 - 1.07 mMol/L 05/18/2024 10:11 AM EDT [facility] Blood VENOUS BLOOD SPECIMEN / Unknown IP Care Team Draw / Unknown 05/18/2024 4:00 AM EDT 05/18/2024 4:13 AM EDT Mary De La Fuente MD CHEMISTRY ORDERABL ES [facility] [place] [address] * (ABNORMAL) Phosphorus (05/18/2024 4:00 AM EDT) Pathologist [facility] Phosphorus 4.7(H) 2.5 - 4.5 mg/dL 05/18/2024 10:11 AM EDT [facility] Blood VENOUS BLOOD SPECIMEN / Unknown IP Care Team Draw / Unknown 05/18/2024 4:00 AM EDT 05/18/2024 4:13 AM EDT Mary De La Fuente MD CHEMISTRY ORDERABL ES [facility] [place] [address] * (ABNORMAL) Basic Metabolic Panel (non-fasting) (05/18/2024 4:00 AM EDT) [facility] Glucose 144 65 - 199 mg/dL 05/18/2024 10:11 AM EDT [facility] Comment:Glucose Concentratio n >=200 mg/dL plus symptoms is consistent with Diabetes Mellitus. Blood Urea Nitrogen 105(H) 10 - 20 mg/dL 05/18/2024 10:11 AM T [facility] Creatinine 2.69(H) 0.80 - 1.50 mg/dL 05/18/2024 10:11 AM [facility] Sodium 134(L) 135 - 145 mMol/L 05/18/2024 10:11 AM [facility] Potassium 5.6(H) 3.5 - 5.0 mMol/L 05/18/2024 10:11 AM [facility] Chloride 107 98 - 107 mMol/L 05/18/2024 10:11 AM [facility] Carbon Dioxide 11(L) 22 - 31 mMol/L 05/18/2024 10:11 AM [facility] Anion Gap 16(H) 5 - 15 mMol/L 05/18/2024 10:11 AM [facility] Calcium 8.8 8.5 - 10.5 mg/dL 05/18/2024 10:11 AM EDT [facility] Est Glomerular Filtration Rate - Male 25 mL/min/1. 73 m?? 05/18/2024 10:11 AM EDT [facility] Comment: This patient's estimated GFR [...] Fasting Status No 05/18/2024 10:11 AM EDT [facility] Blood VENOUS BLOOD SPECIMEN / Unknown IP Care Team Draw / Unknown 05/18/2024 4:00 AM EDT 05/18/2024 4:13 AM EDT Mary De La Fuente MD CHEMISTRY ORDERABL ES Performing Organization Address City/[facility]/Z[place] [address] * (ABNORMAL) POC, GLUCOSE (05/17/2024 11:30 PM EDT) [facility] Signature Glucometer, POC 232(H) 65 - 199 mg/dL 05/17/2024 11:30 PM EDT [facility] Comment:Supplemental ranges: <140 mg/dL before meals <180 mg/dL all other times of the day. Blood CAPILLARY BLOOD / Unknown 05/17/2024 11:30 PM EDT 05/17/2024 11:30 PM EDT Saba Spears MD POINT OF CARE TEST ORDERABLES [facility] [place] [address] * POC, GLUCOSE (05/17/2024 8:12 PM EDT) Glucometer, POC 161 65 - 199 mg/dL 05/17/2024 8:12 PM EDT [facility] Comment:Supplemental ranges: <140 mg/dL before meals <180 mg/dL all other times of the day. Blood CAPILLARY BLOOD / Unknown 05/17/2024 8:12 PM EDT 05/17/2024 8:13 PM EDT Saba Spears MD POINT OF CARE TEST ORDERABLES [facility] [place] [address] * POC, GLUCOSE (05/17/2024 5:35 PM EDT) Glucometer, POC 167 65 - 199 mg/dL 05/17/2024 5:35 PM EDT [facility] Comment:Supplemental ranges: <140 mg/dL before meals <180 mg/dL all other times of the day. Blood CAPILLARY BLOOD / Unknown 05/17/2024 5:35 PM EDT 05/17/2024 5:35 PM EDT Saba Spears MD POINT OF CARE TEST ORDERABLES [facility] [place] [address] * POC, GLUCOSE (05/17/2024 12:50 PM EDT) Glucometer, POC 147 65 - 199 mg/dL 05/17/2024 12:50 PM EDT [facility] Comment:Supplemental ranges: <140 mg/dL before meals <180 mg/dL all other times of the day. Blood CAPILLARY BLOOD / Unknown 05/17/2024 12:50 PM EDT 05/17/2024 12:50 PM EDT Saba Spears MD POINT OF CARE TEST ORDERABLES Performing Organization Address [facility] Co de Phone Number [facility] [place] [address] * POC, GLUCOSE (05/17/2024 8:20 AM EDT) Glucometer, POC 139 65 - 199 mg/dL 05/17/2024 8:21 AM EDT [facility] Comment:Supplemental ranges: <140 mg/dL before meals <180 mg/dL all other times of the day. Blood CAPILLARY BLOOD / Unknown 05/17/2024 8:20 AM EDT 05/17/2024 8:21 AM EDT Treva Diaz MD POINT OF CARE TEST ORDERABLES Performing Organization Address [facility] Co de Phone Number [facility] [place] [address] * (ABNORMAL) Magnesium (05/17/2024 5:49 AM EDT) Magnesium 1.14(H) 0.69 - 1.07 mMol/L 05/17/2024 6:58 AM EDT [facility] Blood IP Care Team w / Unknown 05/17/2024 5:49 AM EDT 05/17/2024 6:13 AM EDT Mary De La Fuente MD CHEMISTRY ORDERABL ES Performing Organization Address City/[facility]/ZIP Co de Phone Number [facility] [place] [address] * (ABNORMAL) Phosphorus (05/17/2024 5:49 AM EDT) Phosphorus 5.6(H) 2.5 - 4.5 mg/dL 05/17/2024 6:58 AM EDT [facility] Blood IP Care Team w / Unknown 05/17/2024 5:49 AM EDT 05/17/2024 6:13 AM EDT Mary De La Fuente MD CHEMISTRY ORDERABL ES [facility] [place] [address] * (ABNORMAL) Basic Metabolic Panel (non-fasting) (05/17/2024 5:49 AM EDT) Glucose 131 65 - 199 mg/dL 05/17/2024 6:58 AM EDT [facility] Comment:Glucose Concentratio n >=200 mg/dL plus symptoms is consistent with Diabetes Mellitus. Blood Urea Nitrogen 86(H) 10 - 20 mg/dL 05/17/2024 6:58 AM [facility] Creatinine 3.07(H) 0.80 - 1.50 mg/dL 05/17/2024 6:58 AM [facility] Sodium 134(L) 135 - 145 mMol/L 05/17/2024 6:58 AM [facility] Potassium 5.0 3.5 - 5.0 mMol/L 05/17/2024 6:58 AM [facility] Chloride 103 98 - 107 mMol/L 05/17/2024 6:58 AM [facility] Carbon Dioxide 21(L) 22 - 31 mMol/L 05/17/2024 6:58 AM [facility] Anion Gap 10 5 - 15 mMol/L 05/17/2024 6:58 AM [facility] Calcium 8.7 8.5 - 10.5 mg/dL 05/17/2024 6:58 AM [facility] Est Glomerular Filtration Rate - Male 21 mL/min/1. 73 m?? 05/17/2024 6:58 AM [facility] Comment: This patient's estimated GFR [...] Fasting Status No 05/17/2024 6:58 AM EDT [facility] Blood IP Care Team w / Ncik 05/17/2024 5:49 AM EDT 05/17/2024 6:13 AM EDT Mary De La Fuente MD CHEMISTRY ORDERABL ES [facility] [place] [address] * (ABNORMAL) CBC (with Diff) (05/17/2024 5:49 AM EDT) White Blood Cell 8.61 4.00 - 9.50 x10(3)/mc L 05/17/2024 6:28 AM [facility] Red Blood Cell 3.54(L) 4.58 - 5.54 x10(6)/mc L 05/17/2024 6:28 AM [facility] Hemoglobin 10.5(L) 13.7 - 16.5 g/dL 05/17/2024 6:28 AM [facility] Hematocrit 33.9(L) 40.5 - 48.5 % 05/17/2024 6:[facility] Mean Cell Volume 95.8(H) 82.9 - 93.1 fL 05/17/2024 6:28 AM [facility] Mean Cell Hemoglobin 29.7 27.5 - 32.1 pg 05/17/2024 6:28 AM [facility] Mean Cell Hemoglobin Concentration 31.0(L) 32.0 - 35.7 g/dL 05/17/2024 6:28 AM [facility] Platelet 341 145 - 357 x10(3)/mc L 05/17/2024 6:28 AM [facility] Mean Platelet Volume 10.4 7.6 - 12.9 fL 05/17/2024 6:28 AM [facility] RDW Standard Deviation 56.5(H) 36.0 - 45.0 fL 05/17/2024 6:28 AM [facility] RDW coefficient of variation 15.7(H) 11.4 - 13.8 % 05/17/2024 6:28 AM [facility] NRBC% auto 0.0 % 05/17/2024 6:28 AM [facility] NRBC Absolute 0.00 0.00 - 0.00 x10(3)/mc L 05/17/2024 6:28 AM [facility] Neutrophil % 76.3 % 05/17/2024 6:28 AM [facility] Neutrophil Absolute (ANC) - Automated 6.57(H) 1.70 - 6.10 x10(3)/mc L 05/17/2024 6:28 AM [facility] Lymph % 9.9 % 05/17/2024 6:28 AM [facility] Lymph Absolute 0.85(L) 0.90 - 3.20 x10(3)/mc L 05/17/2024 6:28 AM [facility] Monocyte % 11.7 % 05/17/2024 6:28 AM [facility] Monocyte Absolute 1.01(H) 0.30 - 0.90 x10(3)/mc L 05/17/2024 6:28 AM [facility] Eos % 0.8 % 05/17/2024 6:28 AM [facility] Eos Absolute 0.07 0.00 - 0.40 x10(3)/mc L 05/17/2024 6:28 AM [facility] Basophil % 0.1 % 05/17/2024 6:28 AM EDT [facility] Baso Absolute 0.01 0.00 - 0.10 x10(3)/mc L 05/17/2024 6:28 AM EDT [facility] Immature Gran % 1.2 % 6:28 AM EDT [facility] Immature Gran Absolute 0.10(H) 0.00 - 0.04 x10(3)/mc L 05/17/2024 6:28 AM EDT [facility] Blood IP Care Team Gia w / Unknown 05/17/2024 5:49 AM EDT 05/17/2024 6:13 AM EDT Mary De La Fuente MD HEMATOLOGY ORDERAB LES Performing Organization Address City/[facility]/ZIP Co de Phone Number [facility] [place] [address] * Vancomycin Level, Random (05/17/2024 5:49 AM EDT) Vancomycin, Random 22.4 mg/L 2023 6:58 AM EDT [facility] Comment:This level is for de termination of the patient's vancomycin gtcz-efgxd-nhx-curve (AUC) value. Contact the inpatient pharmacy for interpretation. Blood IP Care Team w / Unknown 05/17/2024 5:49 AM EDT 05/17/2024 6:13 AM EDT Treva Diaz MD CHEMISTRY ORDERABL ES Performing Organization Address City/[facility]/ZIP Co de Phone Number [facility] [place] [address] * POC, GLUCOSE (05/17/2024 3:54 AM EDT) Glucometer, POC 135 65 - 199 mg/dL 05/17/2024 3:55 AM EDT [facility] Comment:Supplemental ranges: <140 mg/dL before meals <180 mg/dL all other times of the day. Blood CAPILLARY BLOOD / Unknown 05/17/2024 3:54 AM EDT 05/17/2024 3:55 AM EDT Treva Diaz MD POINT OF CARE TEST ORDERABLES [facility] [place] [address] * POCT Glucose (05/16/2024 11:46 PM EDT) Glucose, POC 148 65 - 199 mg/dL [facility] Comment: Supplemental ranges: <140 mg/dL before meals <180 mg/dL all other times of the day Blood 05/16/2024 11:4 6 PM EDT 05/16/2024 11:46 PM EDT Treva Diaz MD POINT OF CARE TEST ORDERABLES Performing Organization Address City/[facility]/ZIP Co de Phone Number [facility] [place] [address] * POCT Glucose (05/16/2024 9:06 PM EDT) Glucose, POC 191 65 - 199 mg/dL [facility] Comment: Supplemental ranges: <140 mg/dL before meals <180 mg/dL all other times of the day Blood 05/16/2024 9:06 PM EDT 05/16/2024 9:06 PM EDT Treva Diaz MD POINT OF CARE TEST ORDERABLES [facility] [place] [address] * POCT Glucose (05/16/2024 8:04 PM EDT) Glucose, POC 199 65 - 199 mg/dL [facility] Comment: Supplemental ranges: <140 mg/dL before meals <180 mg/dL all other times of the day Blood 05/16/2024 8:04 PM EDT 05/16/2024 8:04 PM EDT Treva Diaz MD POINT OF CARE TEST ORDERABLES [facility] [place] [address] * POCT Glucose (05/16/2024 4:51 PM EDT) Glucose, POC 162 65 - 199 mg/dL [facility] Comment: Supplemental ranges: <140 mg/dL before meals <180 mg/dL all other times of the day Blood 05/16/2024 4:51 PM EDT 05/16/2024 4:51 PM EDT Treva Diaz MD POINT OF CARE TEST ORDERABLES Performing Organization Address City/[facility]/ZIP Co de Phone Number [facility] [place] [address] * POCT Glucose (05/16/2024 12:48 PM EDT) Glucose, POC 153 65 - 199 mg/dL [facility] Comment: Supplemental ranges: <140 mg/dL before meals <180 mg/dL all other times of the day Blood 05/16/2024 12:4 8 PM EDT 05/16/2024 12:48 PM EDT Treva Diaz MD POINT OF CARE TEST ORDERABLES [facility] [place] [address] * POCT Glucose (05/16/2024 8:45 AM EDT) Glucose, POC 165 65 - 199 mg/dL [facility] Comment: Supplemental ranges: <140 mg/dL before meals <180 mg/dL all other times of the day Blood 05/16/2024 8:45 AM EDT 05/16/2024 8:45 AM EDT Treva Diaz MD POINT OF CARE TEST ORDERABLES [facility] [place] [address] * (ABNORMAL) Differential, Automated (05/16/2024 5:14 AM EDT) Neutrophil % 79.4 % [facility] Neutrophil Absolute 9.22(H) 1.70 - 6.10 x10(3)/mc L [facility] Lymph % 6.6 % [facility] Lymphocytes Abs 0.8(L) 0.9 - 3.2 x10(3)/mc L [facility] Monocyte % 9.5 % [facility] Monocyte Abs 1.1(H) 0.3 - 0.9 x10(3)/mc L [facility] Eos % 0.0 % [facility] Eosinophils Abs 0.0 0.0 - 0.4 x10(3)/mc L [facility] Basophil % 0.2 % [facility] Baso Absolute 0.0 0.0 - 0.1 x10(3)/mc L [facility] Immature Gran % 4.30 % [facility] Comment: Immature granulocytes(IG's)percentage and absolute count will include metamyelocytes, myelocytes, and promyelocytes. Blood smears from CBCs yielding IG's will be scanned manually for concordance. If this scan disagrees with the automated IG or if promyelocytes are noted, a manual differential will be performed. Immature Gran Absolute 0.50(H) 0.00 - 0.04 x10(3)/mc L [facility] Blood 05/16/2024 5:14 AM EDT 05/16/2024 5:38 AM EDT Narrative Resulting Agency Comment Spec In Lab Carlotta Davis MD HEMATOLOGY OR DERABLES [facility] [place] [address] * (ABNORMAL) Hemogram (05/16/2024 5:14 AM EDT) White Blood Cell 11.6(H) 4.0 - 9.5 x10(3)/mc L [facility] Red Blood Cell 3.59(L) 4.58 - 5.54 x10(6)/mc L [facility] Hemoglobin 10.5(L) 13.7 - 16.5 g/dL [facility] Hematocrit 33.8(L) 40.5 - 48.5 % [facility] Mean Cell Volume 94.2(H) 82.9 - 93.1 fL [facility] Mean Cell Hemoglobin 29.2 27.5 - 32.1 pg [facility] Mean Cell Hemoglobin Concentration 31.1(L) 32.0 - 35.7 g/dL [facility] Platelet 317 145 - 357 x10(3)/mc L [facility] RDW Standard Deviation 55.1(H) 36.0 - 45.0 fL [facility] RDW coefficient of variation 15.9(H) 11.4 - 13.8 % [facility] Mean Platelet Volume 10.6 7.6 - 12.9 fL [facility] NRBC% auto 0.0 % [facility] NRBC Absolute 0.000 0.000 - 0.000 x10(3)/mc L [facility] Blood 05/16/2024 5:14 AM EDT 05/16/2024 5:38 AM EDT Narrative Resulting Agency Comment Spec In Lab Carlotta Davis MD HEMATOLOGY OR DERABLES [facility] [place] [address] * (ABNORMAL) Magnesium (05/16/2024 5:14 AM EDT) Magnesium 1.22(H) 0.69 - 1.07 mmol/L [facility] Blood 05/16/2024 5:14 AM EDT 05/16/2024 5:38 AM EDT Narrative Resulting Agency Comment Spec In Lab Mary De La Fuente MD CHEMISTRY ORDERABL ES Performing Organization Address [facility] Co de Phone Number [facility] [place] [address] * (ABNORMAL) Phosphorus (05/16/2024 5:14 AM EDT) Pathologist [facility] Phosphorus 6.3(H) 2.5 - 4.5 mg/dL [facility] Blood 05/16/2024 5:14 AM EDT 05/16/2024 5:38 AM EDT Narrative Resulting Agency Comment Spec In Lab Mary De La Fuente MD CHEMISTRY ORDERABL ES Performing Organization Address [facility] Co de Phone Number [facility] [place] [address] * (ABNORMAL) Basic Metabolic Panel (non-fasting) (05/16/2024 5:14 AM EDT) Glucose 154 65 - 199 mg/dL [facility] Comment:Diabetes: >=200 mg/d L plus symptoms Blood Urea Nitrogen 74(H) 10 - 20 mg/dL [facility] Creatinine 2.88(H) 0.80 - 1.50 mg/dL [facility] Sodium 133(L) 135 - 145 mmol/L [facility] Potassium 5.0 3.5 - 5.0 mmol/L [facility] Comment: Please note: ??Patients with WBC >100,000 may have falsely elevated Potassium levels. ??For accurate Potassium quantification in these patients send serum separator tube (gold top) for subsequent determinations. ??Contact the Clinical Chemistry Laboratory if there are any questions. Chloride 101 98 - 107 mmol/L [facility] Carbon Dioxide 21(L) 22 - 31 mmol/L [facility] Anion Gap 11 5 - 15 mmol/L [facility] Calcium 8.8 8.5 - 10.5 mg/dL [facility] Est Glomerular Filtration Rate 23(L) >=60 mL/min/1. 73 m?? [facility] Comment: This patient's estimated GFR [...] MD CHEMISTRY ORDERABL ES Performing Organization Address [facility]/ZIP Co de Phone Number [facility] [place] [address] * Vancomycin Level, Random (05/16/2024 5:14 AM EDT) Vancomycin, Random 29.1 mg/L [facility] Comment: This level is for determination of the patient's vancomycin utci-hohtb-kcs-curve (AUC) value. Contact the inpatient pharmacy for interpretation. Blood 05/16/2024 5:14 AM EDT 05/16/2024 5:38 AM EDT Treva Diaz MD CHEMISTRY ORDERABL ES Performing Organization Address City/[facility]/ZIP Co de Phone Number [facility] [place] [address] * POCT Glucose (05/16/2024 3:53 AM EDT) Glucose, POC 166 65 - 199 mg/dL [facility] Comment: Supplemental ranges: <140 mg/dL before meals <180 mg/dL all other times of the day Blood 05/16/2024 3:53 AM EDT 05/16/2024 3:53 AM EDT Treva Diaz MD POINT OF CARE TEST ORDERABLES [facility] [place] [address] * POCT Glucose (05/15/2024 11:41 PM EDT) Glucose, POC 171 65 - 199 mg/dL [facility] Comment: Supplemental ranges: <140 mg/dL before meals <180 mg/dL all other times of the day Blood 05/15/2024 11:4 1 PM EDT 05/15/2024 11:41 PM EDT Treva Diaz MD POINT OF CARE TEST ORDERABLES [facility] [place] [address] * POCT Glucose (05/15/2024 10:32 PM EDT) Glucose, POC 183 65 - 199 mg/dL [facility] Comment: Supplemental ranges: <140 mg/dL before meals <180 mg/dL all other times of the day Blood 05/15/2024 10:3 2 PM EDT 05/15/2024 10:32 PM EDT Treva Diaz MD POINT OF CARE TEST ORDERABLES [facility] [place] [address] * POCT Glucose (05/15/2024 7:53 PM EDT) Pathologist [facility] Glucose, POC 187 65 - 199 mg/dL [facility] Comment: Supplemental ranges: <140 mg/dL before meals <180 mg/dL all other times of the day Blood 05/15/2024 7:53 PM EDT 05/15/2024 7:53 PM EDT Treva Diaz MD POINT OF CARE TEST ORDERABLES Performing Organization Address [facility] Co de Phone Number [facility] [place] [address] * MRSA PCR Screen ([facility]/CGP/APD/NLH) (05/15/2024 4:15 PM EDT) [facility] MRSA PCR Negative Negative [facility] MRSA (Interp) Methicillin-resist ant Staphylococcus aureus (MRSA) is NOT DETECTED The MRSA target DNA sequences (mec and SCC) were not detected within the acceptable ranges using the Xpert MRSA NxG on the GeneXpert Dx System (Loop App). This suggests the absence of MRSA in the patient specimen submitted for testing. This test is cleared by the U.S. Food and Drug Administration for clinical use and its performance characteristics have been verified by the [facility] at [facility]. This result does not rule out the presence of any other organisms. Rare false negative results may occur if MRSA is present at low concentrations with much higher concentrations of other organisms including MRSE or S. aureus with an empty SCC cassette. [facility] Comment: [VERIFIED DATE]05.15.24 Verified By:Lupe Jensen (Electronic Signature) Nasopharyngeal Swab 05/15/20 4:15 PM EDT 05/15/2024 6:28 PM EDT Comment:Specimen Type->Nasop haryngeal Swab Narrative Resulting Agency Comment Spec In Lab Treva Diaz MD MOLECULAR ORDERABL ES Performing Organization Address [facility]/Z[place] [address] * (ABNORMAL) POCT Glucose (05/15/2024 3:20 PM EDT) Glucose, POC 224(H) 65 - 199 mg/dL [facility] Comment: Supplemental ranges: <140 mg/dL before meals <180 mg/dL all other times of the day Blood 05/15/2024 3:20 PM EDT 05/15/2024 3:20 PM EDT Treva Diaz MD POINT OF CARE TEST ORDERABLES [facility] [place] [address] * (ABNORMAL) POCT Glucose (05/15/2024 11:39 AM EDT) Glucose, POC 213(H) 65 - 199 mg/dL [facility] Comment: Supplemental ranges: <140 mg/dL before meals <180 mg/dL all other times of the day Blood 05/15/2024 11:3 9 AM EDT 05/15/2024 11:39 AM EDT Treva Diaz MD POINT OF CARE TEST ORDERABLES [facility] [place] [address] * POCT Glucose (05/15/2024 8:02 AM EDT) Glucose, POC 190 65 - 199 mg/dL [facility] Comment: Supplemental ranges: <140 mg/dL before meals <180 mg/dL all other times of the day Blood 05/15/2024 8:02 AM EDT 05/15/2024 8:02 AM EDT Treva Diaz MD POINT OF CARE TEST ORDERABLES [facility] [place] [address] * (ABNORMAL) Differential, Automated (05/15/2024 5:12 AM EDT) Pathologist [facility] Neutrophil % 85.3 % [facility] Neutrophil Absolute 11.37(H) 1.70 - 6.10 x10(3)/mc L [facility] Lymph % 3.7 % [facility] Lymphocytes Abs 0.5(L) 0.9 - 3.2 x10(3)/ L [facility] Monocyte % 9.1 % [facility] Monocyte Abs 1.2(H) 0.3 - 0.9 x10(3)/ L [facility] Eos % 0.0 % [facility] Eosinophils Abs 0.0 0.0 - 0.4 x10(3)/[facility] Basophil % 0.1 % [facility] Baso Absolute 0.0 0.0 - 0.1 x10(3)/ L [facility] Immature Gran % 1.80 % [facility] Comment: Immature granulocytes(IG's)percentage and absolute count will include metamyelocytes, myelocytes, and promyelocytes. Blood smears from CBCs yielding IG's will be scanned manually for concordance. If this scan disagrees with the automated IG or if promyelocytes are noted, a manual differential will be performed. Immature Gran Absolute 0.24(H) 0.00 - 0.04 x10(3)/ L [facility] Blood 05/15/2024 5:12 AM EDT 05/15/2024 5:38 AM EDT Narrative Resulting Agency Comment Spec In Lab Carlotta Davis MD HEMATOLOGY OR DERABLES [facility] [place] [address] * (ABNORMAL) Hemogram (05/15/2024 5:12 AM EDT) [facility] White Blood Cell 13.4(H) 4.0 - 9.5 x10(3)/ L [facility] Red Blood Cell 3.58(L) 4.58 - 5.54 x10(6)/mc L [facility] Hemoglobin 10.9(L) 13.7 - 16.5 g/dL [facility] Hematocrit 34.1(L) 40.5 - 48.5 % [facility] Mean Cell Volume 95.3(H) 82.9 - 93.1 fL [facility] Mean Cell Hemoglobin 30.4 27.5 - 32.1 pg [facility] Mean Cell Hemoglobin Concentration 32.0 32.0 - 35.7 g/dL [facility] Platelet 227 145 - 357 x10(3)/[facility] RDW Standard Deviation 55.8(H) 36.0 - 45.0 [facility] RDW coefficient of variation 15.8(H) 11.4 - 13.8 % [facility] Mean Platelet Volume 10.7 7.6 - 12.9 [facility] NRBC% auto 0.0 % [facility] NRBC Absolute 0.000 0.000 - 0.000 x10(3)/[facility] Blood 05/15/2024 5:12 AM EDT 05/15/2024 5:38 AM EDT Narrative Resulting Agency Comment Spec In Lab Carlotta Davis MD HEMATOLOGY OR DERABLES [facility] [place] [address] * (ABNORMAL) Magnesium (05/15/2024 5:12 AM EDT) Magnesium 1.21(H) 0.69 - 1.07 mmol/L [facility] Blood 05/15/2024 5:12 AM EDT 05/15/2024 5:38 AM EDT Narrative Resulting Agency Comment Spec In Lab Mary De La Fuente MD CHEMISTRY ORDERABL ES Performing Organization Address [facility] Co de Phone Number [facility] [place] [address] * (ABNORMAL) Phosphorus (05/15/2024 5:12 AM EDT) Phosphorus 6.5(H) 2.5 - 4.5 mg/dL [facility] Comment:result rechecked-HN Blood 05/15/2024 5:12 AM EDT 05/15/2024 5:38 AM EDT Narrative Resulting Agency Comment Spec In Lab Mary De La Fuente MD CHEMISTRY ORDERABL ES Performing Organization Address [facility] Co de Phone Number [facility] [place] [address] * (ABNORMAL) Basic Metabolic Panel (non-fasting) (05/15/2024 5:12 AM EDT) Glucose 217(H) 65 - 199 mg/dL [facility] Comment:Diabetes: >=200 mg/d L plus symptoms Blood Urea Nitrogen 58(H) 10 - 20 mg/dL [facility] Creatinine 2.46(H) 0.80 - 1.50 mg/dL [facility] Comment:result rechecked-HN Sodium 135 135 - 145 mmol/L [facility] Potassium 5.2(H) 3.5 - 5.0 mmol/L [facility] Comment: Please note: ??Patients with WBC >100,000 may have falsely elevated Potassium levels. ??For accurate Potassium quantification in these patients send serum separator tube (gold top) for subsequent determinations. ??Contact the Clinical Chemistry Laboratory if there are any questions. Chloride 100 98 - 107 mmol/L [facility] Carbon Dioxide 23 22 - 31 mmol/L [facility] Anion Gap 12 5 - 15 mmol/L [facility] Calcium 8.8 8.5 - 10.5 mg/dL [facility] Est Glomerular Filtration Rate 27(L) >=60 mL/min/1. 73 m?? [facility] Comment: This patient's estimated GFR [...] MD CHEMISTRY ORDERABL ES Performing Organization Address City/[facility]/ZIP Co de Phone Number [facility] [place] [address] * (ABNORMAL) POCT Glucose (05/15/2024 4:55 AM EDT) Glucose, POC 223(H) 65 - 199 mg/dL [facility] Comment: Supplemental ranges: <140 mg/dL before meals <180 mg/dL all other times of the day Blood 05/15/2024 4:55 AM EDT 05/15/2024 4:55 AM EDT Treva Diaz MD POINT OF CARE TEST ORDERABLES [facility] [place] [address] * (ABNORMAL) POCT Glucose (05/15/2024 2:51 AM EDT) Glucose, POC 279(H) 65 - 199 mg/dL [facility] Comment: Supplemental ranges: <140 mg/dL before meals <180 mg/dL all other times of the day Blood 05/15/2024 2:51 AM EDT 05/15/2024 2:51 AM EDT Treva Diaz MD POINT OF CARE TEST ORDERABLES Performing Organization Address City/[facility]/ZIP Co de Phone Number [facility] [place] [address] * (ABNORMAL) POCT Glucose (05/14/2024 9:03 PM EDT) Glucose, POC 257(H) 65 - 199 mg/dL [facility] Comment: Supplemental ranges: <140 mg/dL before meals <180 mg/dL all other times of the day Blood 05/14/2024 9:03 PM EDT 05/14/2024 9:03 PM EDT Treva Diaz MD POINT OF CARE TEST ORDERABLES Performing Organization Address [facility] Co de Phone Number [facility] [place] [address] * (ABNORMAL) POCT Glucose (05/14/2024 7:15 PM EDT) Glucose, POC 207(H) 65 - 199 mg/dL [facility] Comment: Supplemental ranges: <140 mg/dL before meals <180 mg/dL all other times of the day Blood 05/14/2024 7:15 PM EDT 05/14/2024 7:15 PM EDT Treva Diaz MD POINT OF CARE TEST ORDERABLES Performing Organization Address City/[facility]/ZIP Co de Phone Number [facility] [place] [address] * POCT Glucose (05/14/2024 4:47 PM EDT) Glucose, POC 188 65 - 199 mg/dL [facility] Comment: Supplemental ranges: <140 mg/dL before meals <180 mg/dL all other times of the day Blood 05/14/2024 4:47 PM EDT 05/14/2024 4:47 PM EDT Treva Diaz MD POINT OF CARE TEST ORDERABLES Performing Organization Address City/[facility]/ZIP Co de Phone Number [facility] [place] [address] * POCT Glucose (05/14/2024 1:21 PM EDT) Glucose, POC 163 65 - 199 mg/dL [facility] Comment: Supplemental ranges: <140 mg/dL before meals <180 mg/dL all other times of the day Blood 05/14/2024 1:21 PM EDT 05/14/2024 1:21 PM EDT Treva Diaz MD POINT OF CARE TEST ORDERABLES Performing Organization Address [facility]/ZIP Co de Phone Number [facility] [place] [address] * Anaerobic Culture (05/14/2024 11:33 AM EDT) Anaerobic Culture No anaerobic organisms isolated [facility] Toe 05/14/2024 11:3 3 AM EDT 05/14/2024 12:33 PM EDT Comment:PROXIMAL RIGHT 2ND T OE Narrative Resulting Agency Comment Spec In Lab Gennaro Meyers MD MICROBIOLOGY - GENE RAL ORDERABLES Performing Organization Address City/[facility]/ZIP Co de Phone Number [facility] [place] [address] * (ABNORMAL) Tissue culture (05/14/2024 11:33 AM EDT) Tissue Culture One colony of Coagulase negative Staphylococcus species(A) [facility] Gram Stain Few Neutrophils seen Rare Gram Positive Cocci in pairs seen Results called to and read back by Dr. Mihaela Galvan ??05/14/24 14:57:00 (A) [facility] Organism Coagulase negative Staphylococcus species(A) [facility] Organism Gram Positive Cocci in pairs(A) [facility] Toe 05/14/2024 11:3 3 AM [...] Sensitive Comment:Gentamicin i s not appropriate for Harrison-therapy. Coagulase Negative Staphylococcus species Levofloxacin MICROSCAN METHOD [...] Sensitive Gennaro Meyers MD MICROBIOLOGY - [facility] ORDERABLES [facility] [place] [id number] * Surgical Pathology Report (05/14/2024 11:32 AM EDT) Surgical Pathology Report [id number] ? Location: [id number]; [id number]; A The signing [...] MD, Shima Verified: ??05/20/2024 11:25 Performed at: ??-[facility] Dept. of Pathology, [place] [address] Nutritional Chemist: Polly Barnhart MD, FCAP, ??CLIA Certificate: [id number] SPECIMEN(S) SUBMITTED A - RIGHT 2ND TOE, [...] Sections/Processi ng: Blocks submitted for decalcification: A1-A2. Control Director sections in 2 cassettes as follows: ?A1-A2: ??Longitudinal section of digit ??cmk [facility] 05/14/2024 11:3 2 AM EDT Gennaro Meyers MD PATHOLOGY/CYTOLOGY ORDERABLES [facility] [place] [id number] * Specimen to Pathology (05/14/2024 11:32 AM EDT) AP Specimen 05/14/2024 11:3 2 AM EDT 05/14/2024 11:32 AM EDT Narrative [facility] - 05/14/2024 11:32 AM EDT Specimen requisition ordered. ??Separate Pathology report to follow Treva Diaz MD PATHOLOGY/CYTOLOGY ORDERABLES [facility] [place] [address] * (ABNORMAL) POCT Glucose (05/14/2024 7:58 AM EDT) [facility] Glucose, POC 203(H) 65 - 199 mg/dL [facility] Comment: Supplemental ranges: <140 mg/dL before meals <180 mg/dL all other times of the day Blood 05/14/2024 7:58 AM EDT 05/14/2024 7:58 AM EDT Treva Diaz MD POINT OF CARE TEST ORDERABLES Performing Organization Address City/[facility]/ZIP Co de Phone Number [facility] [place] [address] * (ABNORMAL) Differential, Automated (05/14/2024 5:01 AM EDT) [facility] Neutrophil % 80.5 % [facility] Neutrophil Absolute 12.45(H) 1.70 - 6.10 x10(3)/mc L [facility] Lymph % 5.5 % [facility] Lymphocytes Abs 0.8(L) 0.9 - 3.2 x10(3)/mc L [facility] Monocyte % 12.6 % [facility] Monocyte Abs 2.0(H) 0.3 - 0.9 x10(3)/mc L [facility] Eos % 0.3 % [facility] Eosinophils Abs 0.0 0.0 - 0.4 x10(3)/mc L [facility] Basophil % 0.2 % [facility] Baso Absolute 0.0 0.0 - 0.1 x10(3)/mc L [facility] Immature Gran % 0.90 % [facility] Comment: Immature granulocytes(IG's)percentage and absolute count will include metamyelocytes, myelocytes, and promyelocytes. Blood smears from CBCs yielding IG's will be scanned manually for concordance. If this scan disagrees with the automated IG or if promyelocytes are noted, a manual differential will be performed. Immature Gran Absolute 0.14(H) 0.00 - 0.04 x10(3)/ L [facility] Blood 05/14/2024 5:01 AM EDT 05/14/2024 6:02 AM EDT Narrative Resulting Agency Comment Spec In Lab Carlotta Davis MD HEMATOLOGY OR DERABLES [facility] [place] [address] * (ABNORMAL) Hemogram (05/14/2024 5:01 AM EDT) White Blood Cell 15.5(H) 4.0 - 9.5 x10(3)/[facility] Red Blood Cell 3.55(L) 4.58 - 5.54 x10(6)/ L [facility] Hemoglobin 10.8(L) 13.7 - 16.5 g/dL [facility] Hematocrit 32.8(L) 40.5 - 48.5 % [facility] Mean Cell Volume 92.4 82.9 - 93.1 fL [facility] Mean Cell Hemoglobin 30.4 27.5 - 32.1 pg [facility] Mean Cell Hemoglobin Concentration 32.9 32.0 - 35.7 g/dL [facility] Platelet 190 145 - 357 x10(3)/ L [facility] RDW Standard Deviation 53.2(H) 36.0 - 45.0 fL [facility] RDW coefficient of variation 15.6(H) 11.4 - 13.8 % [facility] Mean Platelet Volume 11.2 7.6 - 12.9 fL [facility] NRBC% auto 0.0 % [facility] NRBC Absolute 0.000 0.000 - 0.000 x10(3)/mc L [facility] Blood 05/14/2024 5:01 AM EDT 05/14/2024 6:02 AM EDT Narrative Resulting Agency Comment Spec In Lab Carlotta Davis MD HEMATOLOGY OR DERABLES Performing Organization Address [facility]/ZIP Co de Phone Number [facility] [place] [address] * Magnesium (05/14/2024 5:01 AM EDT) Magnesium 0.98 0.69 - 1.07 mmol/L [facility] Blood 05/14/2024 5:01 AM EDT 05/14/2024 6:02 AM EDT Narrative Resulting Agency Comment Spec In Lab Mary De La Fuente MD CHEMISTRY ORDERABL ES Performing Organization Address [facility] Co de Phone Number [facility] [place] [address] * Phosphorus (05/14/2024 5:01 AM EDT) Phosphorus 2.8 2.5 - 4.5 mg/dL [facility] Blood 05/14/2024 5:01 AM EDT 05/14/2024 6:02 AM EDT Narrative Resulting Agency Comment Spec In Lab Mary De La Fuente MD CHEMISTRY ORDERABL ES Performing Organization Address [facility] Co de Phone Number [facility] [place] [address] * (ABNORMAL) Basic Metabolic Panel (non-fasting) (05/14/2024 5:01 AM EDT) Glucose 172 65 - 199 mg/dL [facility] Comment:Diabetes: >=200 mg/d L plus symptoms Blood Urea Nitrogen 46(H) 10 - 20 mg/dL [facility] Creatinine 1.56(H) 0.80 - 1.50 mg/dL [facility] Sodium 137 135 - 145 mmol/L [facility] Potassium 4.4 3.5 - 5.0 mmol/L [facility] Comment: Please note: ??Patients with WBC >100,000 may have falsely elevated Potassium levels. ??For accurate Potassium quantification in these patients send serum separator tube (gold top) for subsequent determinations. ??Contact the Clinical Chemistry Laboratory if there are any questions. Chloride 105 98 - 107 mmol/L [facility] Carbon Dioxide 22 22 - 31 mmol/L [facility] Anion Gap 10 5 - 15 mmol/L [facility] Calcium 8.7 8.5 - 10.5 mg/dL [facility] Est Glomerular Filtration Rate 47(L) >=60 mL/min/1. 73 m?? [facility] Comment: This patient's estimated GFR [...] De La Fuente MD CHEMISTRY ORDERABL ES [facility] [place] [address] * Vancomycin Level, Random (05/14/2024 5:01 AM EDT) Vancomycin, Random 13.5 mg/L [facility] Comment: This level is for determination of the patient's vancomycin exsr-gzbsl-wtb-curve (AUC) value. Contact the inpatient pharmacy for interpretation. Blood 05/14/2024 5:01 AM EDT 05/14/2024 6:02 AM EDT Treva Diaz MD CHEMISTRY ORDERABL ES [facility] [place] [address] * POCT Glucose (05/13/2024 8:41 PM EDT) Glucose, POC 179 65 - 199 mg/dL [facility] Comment: Supplemental ranges: <140 mg/dL before meals <180 mg/dL all other times of the day Blood 05/13/2024 8:41 PM EDT 05/13/2024 8:41 PM EDT Treva Diaz MD POINT OF CARE TEST ORDERABLES Performing Organization Address [facility] Co de Phone Number [facility] [place] [address] * POCT Glucose (05/13/2024 6:06 PM EDT) Glucose, POC 135 65 - 199 mg/dL [facility] Comment: Supplemental ranges: <140 mg/dL before meals <180 mg/dL all other times of the day Blood 05/13/2024 6:06 PM EDT 05/13/2024 6:06 PM EDT Treva Diaz MD POINT OF CARE TEST ORDERABLES Performing Organization Address City/[facility]/ZIP Co de Phone Number [facility] [place] [address] * POCT Glucose (05/13/2024 11:12 AM EDT) Glucose, POC 163 65 - 199 mg/dL [facility] Comment: Supplemental ranges: <140 mg/dL before meals <180 mg/dL all other times of the day Blood 05/13/2024 11:1 2 AM EDT 05/13/2024 11:12 AM EDT Treva Diaz MD POINT OF CARE TEST ORDERABLES Performing Organization Address City/[facility]/ZIP Co de Phone Number [facility] [place] [address] * POCT Glucose (05/13/2024 7:47 AM EDT) Glucose, POC 194 65 - 199 mg/dL [facility] Comment: Supplemental ranges: <140 mg/dL before meals <180 mg/dL all other times of the day Blood 05/13/2024 7:47 AM EDT 05/13/2024 7:47 AM EDT Treva Diaz MD POINT OF CARE TEST ORDERABLES Performing Organization Address [facility] Co de Phone Number [facility] [place] [address] * Scan, Peripheral Blood (05/13/2024 5:29 AM EDT) [facility] Plat estimate Normal [facility] RBC Morphology Abnormal [facility] Sofía Cells 1-5 /HPF [facility] Plat, Giant Less than 1 /HPF [facility] Blood 05/13/2024 5:29 AM EDT 05/13/2024 5:49 AM EDT Narrative Resulting Agency Comment Spec In Lab Carlotta Davis MD HEMATOLOGY OR DERABLES Performing Organization Address City/[facility]/ZIP Co de Phone Number [facility] [place] [address] * (ABNORMAL) Differential, Automated (05/13/2024 5:29 AM EDT) Neutrophil % 81.8 % [facility] Neutrophil Absolute 12.66(H) 1.70 - 6.10 x10(3)/[facility] Lymph % 5.0 % [facility] Lymphocytes Abs 0.8(L) 0.9 - 3.2 x10(3)/[facility] Monocyte % 12.3 % [facility] Monocyte Abs 1.9(H) 0.3 - 0.9 x10(3)/[facility] Eos % 0.2 % [facility] Eosinophils Abs 0.0 0.0 - 0.4 x10(3)/[facility] Basophil % 0.1 % [facility] Baso Absolute 0.0 0.0 - 0.1 x10(3)/[facility] Immature Gran % 0.60 % [facility] Comment: Immature granulocytes(IG's)percentage and absolute count will include metamyelocytes, myelocytes, and promyelocytes. Blood smears from CBCs yielding IG's will be scanned manually for concordance. If this scan disagrees with the automated IG or if promyelocytes are noted, a manual differential will be performed. Immature Gran Absolute 0.09(H) 0.00 - 0.04 x10(3)/[facility] Blood 05/13/2024 5:29 AM EDT 05/13/2024 5:49 AM EDT Narrative Resulting Agency Comment Spec In Lab Carlotta Davis MD HEMATOLOGY OR DERABLES [facility] [place] [address] * (ABNORMAL) Hemogram (05/13/2024 5:29 AM EDT) Pathologist [facility] White Blood Cell 15.5(H) 4.0 - 9.5 x10(3)/mc L [facility] Red Blood Cell 3.64(L) 4.58 - 5.54 x10(6)/mc L [facility] Hemoglobin 10.9(L) 13.7 - 16.5 g/dL [facility] Hematocrit 33.3(L) 40.5 - 48.5 % [facility] Mean Cell Volume 91.5 82.9 - 93.1 fL [facility] Mean Cell Hemoglobin 29.9 27.5 - 32.1 pg [facility] Mean Cell Hemoglobin Concentration 32.7 32.0 - 35.7 g/dL [facility] Platelet 186 145 - 357 x10(3)/[facility] RDW Standard Deviation 53.0(H) 36.0 - 45.0 [facility] RDW coefficient of variation 15.8(H) 11.4 - 13.8 % [facility] Mean Platelet Volume 11.8 7.6 - 12.9 [facility] NRBC% auto 0.0 % [facility] NRBC Absolute 0.000 0.000 - 0.000 x10(3)/[facility] Blood 05/13/2024 5:29 AM EDT 05/13/2024 5:49 AM EDT Narrative Resulting Agency Comment Spec In Lab Carlotta Davis MD HEMATOLOGY OR DERABLES [facility] [place] [address] * Magnesium (05/13/2024 5:29 AM EDT) Magnesium 0.99 0.69 - 1.07 mmol/L [facility] Blood 05/13/2024 5:29 AM EDT 05/13/2024 5:49 AM EDT Narrative Resulting Agency Comment Spec In Lab Mary De La Fuente MD CHEMISTRY ORDERABL ES Performing Organization Address City/[facility]/ZIP Co de Phone Number [facility] [place] [address] * Phosphorus (05/13/2024 5:29 AM EDT) Phosphorus 2.7 2.5 - 4.5 mg/dL [facility] Blood 05/13/2024 5:29 AM EDT 05/13/2024 5:49 AM EDT Narrative Resulting Agency Comment Spec In Lab Mary De La Fuente MD CHEMISTRY ORDERABL ES Performing Organization Address [facility] Co de Phone Number [facility] [place] [address] * (ABNORMAL) Basic Metabolic Panel (non-fasting) (05/13/2024 5:29 AM EDT) Pathologist [facility] Glucose 166 65 - 199 mg/dL [facility] Comment:Diabetes: >=200 mg/d L plus symptoms Blood Urea Nitrogen 57(H) 10 - 20 mg/dL [facility] Creatinine 1.53(H) 0.80 - 1.50 mg/dL [facility] Sodium 137 135 - 145 mmol/L [facility] Potassium 4.4 3.5 - 5.0 mmol/L [facility] Comment: Please note: ??Patients with WBC >100,000 may have falsely elevated Potassium levels. ??For accurate Potassium quantification in these patients send serum separator tube (gold top) for subsequent determinations. ??Contact the Clinical Chemistry Laboratory if there are any questions. Chloride 104 98 - 107 mmol/L [facility] Carbon Dioxide 24 22 - 31 mmol/L [facility] Anion Gap 9 5 - 15 mmol/L [facility] Calcium 8.7 8.5 - 10.5 mg/dL [facility] Est Glomerular Filtration Rate 49(L) >=60 mL/min/1. 73 m?? [facility] Comment: This patient's estimated GFR [...] MD CHEMISTRY ORDERABL ES Performing Organization Address City/[facility]/ZIP Co de Phone Number [facility] [place] [address] * POCT Glucose (05/12/2024 11:46 PM EDT) Glucose, POC 165 65 - 199 mg/dL [facility] Comment: Supplemental ranges: <140 mg/dL before meals <180 mg/dL all other times of the day Blood 05/12/2024 11:4 6 PM EDT 05/12/2024 11:46 PM EDT Treva Diaz MD POINT OF CARE TEST ORDERABLES [facility] [place] [address] * POCT Glucose (05/12/2024 8:36 PM EDT) Glucose, POC 164 65 - 199 mg/dL [facility] Comment: Supplemental ranges: <140 mg/dL before meals <180 mg/dL all other times of the day Blood 05/12/2024 8:36 PM EDT 05/12/2024 8:36 PM EDT Treva Diaz MD POINT OF CARE TEST ORDERABLES Performing Organization Address [facility] Co de Phone Number [facility] [place] [address] * POCT Glucose (05/12/2024 5:38 PM EDT) Glucose, POC 175 65 - 199 mg/dL [facility] Comment: Supplemental ranges: <140 mg/dL before meals <180 mg/dL all other times of the day Blood 05/12/2024 5:38 PM EDT 05/12/2024 5:38 PM EDT Treva Diaz MD POINT OF CARE TEST ORDERABLES Performing Organization Address [facility] de Phone Number [facility] [place] [address] * Vancomycin Level, Random (05/12/2024 2:10 PM EDT) Vancomycin, Random 22.3 mg/L [facility] Comment: This level is for determination of the patient's vancomycin vxjy-egwqk-cwc-curve (AUC) value. Contact the inpatient pharmacy for interpretation. Blood 05/12/2024 2:10 PM EDT 05/12/2024 2:23 PM EDT Treva Diaz MD CHEMISTRY ORDERABL ES Performing Organization Address [facility] Co de Phone Number [facility] [place] [address] * POCT Glucose (05/12/2024 1:42 PM EDT) Glucose, POC 168 65 - 199 mg/dL [facility] Comment: Supplemental ranges: <140 mg/dL before meals <180 mg/dL all other times of the day Blood 05/12/2024 1:42 PM EDT 05/12/2024 1:42 PM EDT Treva Diaz MD POINT OF CARE TEST ORDERABLES [facility] [place] [address] * Duplex for DVT, Leg, Unilat (05/12/2024 10:19 AM EDT) VB Text Report Department: Vascular Surgery Lab Patient: [id number] (JOSSY SHANKS) CPT: [id number] Referring Physician: MARY DE LA FUENTE ?? [...] MD VASCULAR ORDERABLE S Performing Organization Address City/[facility]/ZIP Co de Phone Number [facility] * POCT Glucose (05/12/2024 9:00 AM EDT) Glucose, POC 161 65 - 199 mg/dL [facility] Comment: Supplemental ranges: <140 mg/dL before meals <180 mg/dL all other times of the day Blood 05/12/2024 9:00 AM EDT 05/12/2024 9:00 AM EDT Treva Diaz MD POINT OF CARE TEST ORDERABLES Performing Organization Address City/[facility]/ZIP Co de Phone Number [facility] [place] [address] * (ABNORMAL) Sedimentation rate (05/12/2024 4:45 AM EDT) [facility] Sedimentation Rate Automated >119(H) 3 - 46 mm/hr [facility] Comment: Effective September 24, 2019 [...] MD HEMATOLOGY ORDERABLE S Performing Organization Address [facility]/ZIP Co de Phone Number [facility] [place] [address] * (ABNORMAL) CRP, acute inflammation (05/12/2024 4:45 AM EDT) [facility] C-Reactive Protein 152.4(H) <=4.9 mg/L [facility] Blood Venous Draw / Unknown 05/12/2024 4:45 AM EDT 05/12/2024 5:12 AM EDT Narrative Resulting Agency Comment Spec In Lab Juan José Harrison MD CHEMISTRY ORDERABLES Performing Organization Address City/[facility]/ZIP Co de Phone Number [facility] [place] [address] * (ABNORMAL) Differential, Automated (05/12/2024 4:45 AM EDT) [facility] Neutrophil % 87.9 % [facility] Neutrophil Absolute 17.31(H) 1.70 - 6.10 x10(3)/mc L [facility] Lymph % 3.9 % [facility] Lymphocytes Abs 0.8(L) 0.9 - 3.2 x10(3)/mc L [facility] Monocyte % 7.4 % [facility] Monocyte Abs 1.4(H) 0.3 - 0.9 x10(3)/[facility] Eos % 0.0 % [facility] Eosinophils Abs 0.0 0.0 - 0.4 x10(3)/[facility] Basophil % 0.1 % [facility] Baso Absolute 0.0 0.0 - 0.1 x10(3)/[facility] Immature Gran % 0.70 % [facility] Comment: Immature granulocytes(IG's)percentage and absolute count will include metamyelocytes, myelocytes, and promyelocytes. Blood smears from CBCs yielding IG's will be scanned manually for concordance. If this scan disagrees with the automated IG or if promyelocytes are noted, a manual differential will be performed. Immature Gran Absolute 0.14(H) 0.00 - 0.04 x10(3)/[facility] Blood 05/12/2024 4:45 AM EDT 05/12/2024 5:06 AM EDT Narrative Resulting Agency Comment Spec In Lab Carlotta Davis MD HEMATOLOGY OR DERABLES Performing Organization Address City/State/[facility] Co de Phone Number [facility] [place] [address] * (ABNORMAL) Hemogram (05/12/2024 4:45 AM EDT) White Blood Cell 19.7(H) 4.0 - 9.5 x10(3)/[facility] Red Blood Cell 3.58(L) 4.58 - 5.54 x10(6)/[facility] Hemoglobin 10.9(L) 13.7 - 16.5 g/dL [facility] Hematocrit 33.1(L) 40.5 - 48.5 % [facility] Mean Cell Volume 92.5 82.9 - 93.1 fL [facility] Mean Cell Hemoglobin 30.4 27.5 - 32.1 pg [facility] Mean Cell Hemoglobin Concentration 32.9 32.0 - 35.7 g/dL [facility] Platelet 165 145 - 357 x10(3)/mc L [facility] RDW Standard Deviation 53.2(H) 36.0 - 45.0 fL [facility] RDW coefficient of variation 15.7(H) 11.4 - 13.8 % [facility] Mean Platelet Volume 12.1 7.6 - 12.9 fL [facility] NRBC% auto 0.0 % [facility] NRBC Absolute 0.000 0.000 - 0.000 x10(3)/mc L [facility] Blood 05/12/2024 4:45 AM EDT 05/12/2024 5:06 AM EDT Narrative Resulting Agency Comment Spec In Lab Carlotta Davis MD HEMATOLOGY OR DERABLES Performing Organization Address City/[facility]/ZIP Co de Phone Number [facility] [place] [address] * Magnesium (05/12/2024 4:45 AM EDT) Magnesium 1.07 0.69 - 1.07 mmol/L [facility] LABORATORY Blood 05/12/2024 4:45 AM EDT 05/12/2024 5:06 AM EDT Narrative Resulting Agency Comment Spec In Lab Mary De La Fuente MD CHEMISTRY ORDERABL ES Performing Organization Address City/[facility]/ZIP Co de Phone Number [facility] [place] [address] * Phosphorus (05/12/2024 4:45 AM EDT) Phosphorus 2.7 2.5 - 4.5 mg/dL [facility] Blood 05/12/2024 4:45 AM EDT 05/12/2024 5:06 AM EDT Narrative Resulting Agency Comment Spec In Lab Mayr De La Fuente MD CHEMISTRY ORDERABL ES [facility] [place] [address] * (ABNORMAL) Basic Metabolic Panel (non-fasting) (05/12/2024 4:45 AM EDT) Glucose 156 65 - 199 mg/dL [facility] Comment:Diabetes: >=200 mg/d L plus symptoms Blood Urea Nitrogen 72(H) 10 - 20 mg/dL [facility] Creatinine 2.03(H) 0.80 - 1.50 mg/dL [facility] Sodium 135 135 - 145 mmol/L [facility] Potassium 4.5 3.5 - 5.0 mmol/L [facility] Comment: Please note: ??Patients with WBC >100,000 may have falsely elevated Potassium levels. ??For accurate Potassium quantification in these patients send serum separator tube (gold top) for subsequent determinations. ??Contact the Clinical Chemistry Laboratory if there are any questions. Chloride 101 98 - 107 mmol/L [facility] Carbon Dioxide 24 22 - 31 mmol/L [facility] Anion Gap 10 5 - 15 mmol/L [facility] Calcium 8.4(L) 8.5 - 10.5 mg/dL [facility] Est Glomerular Filtration Rate 35(L) >=60 mL/min/1. 73 m?? [facility] Comment: This patient's estimated GFR [...] De La Fuente MD CHEMISTRY ORDERABL ES [facility] [place] [address] * ANGY, legs, multiple levels (05/12/2024 3:22 AM EDT) VB Text Report Department: Vascular Surgery Lab Patient: [id number] (JOSSY SHANKS) CPT: 42867 Referring Physician: THO DICKSON ?? Phone: Indications: [...] Glucose, POC 201(H) 65 - 199 mg/dL [facility] Comment: Supplemental ranges: <140 mg/dL before meals <180 mg/dL all other times of the day Blood 05/11/2024 8:14 PM EDT 05/11/2024 8:14 PM EDT Treva Diaz MD POINT OF CARE TEST ORDERABLES Performing Organization Address City/[facility]/ZIP Co de Phone Number [facility] [place] [address] * Vancomycin Level, Random (05/11/2024 8:10 PM EDT) Vancomycin, Random 21.7 mg/L [facility] Comment: This level is for determination of the patient's vancomycin xpwu-xhhpd-mml-curve (AUC) value. Contact the inpatient pharmacy for interpretation. Blood 05/11/2024 8:10 PM EDT 05/11/2024 8:32 PM EDT Treva Diaz MD CHEMISTRY ORDERABL ES Performing Organization Address [facility] Co de Phone Number [facility] [place] [address] * POCT Glucose (05/11/2024 4:34 PM EDT) Glucose, POC 197 65 - 199 mg/dL [facility] Comment: Supplemental ranges: <140 mg/dL before meals <180 mg/dL all other times of the day Blood 05/11/2024 4:34 PM EDT 05/11/2024 4:34 PM EDT Treva Diaz MD POINT OF CARE TEST ORDERABLES Performing Organization Address City/[facility] Co de Phone Number [facility] [place] [address] * (ABNORMAL) POCT Glucose (05/11/2024 11:47 AM EDT) Glucose, POC 255(H) 65 - 199 mg/dL [facility] Comment: Supplemental ranges: <140 mg/dL before meals <180 mg/dL all other times of the day Blood 05/11/2024 11:4 7 AM EDT 05/11/2024 11:47 AM EDT Treva Diaz MD POINT OF CARE TEST ORDERABLES Performing Organization Address City/[facility]/ZIP Co de Phone Number [facility] [place] [address] * (ABNORMAL) POCT Glucose (05/11/2024 6:57 AM EDT) [facility] Glucose, POC 200(H) 65 - 199 mg/dL [facility] Comment: Supplemental ranges: <140 mg/dL before meals <180 mg/dL all other times of the day Blood 05/11/2024 6:57 AM EDT 05/11/2024 6:57 AM EDT Treva Diaz MD POINT OF CARE TEST ORDERABLES Performing Organization Address City/[facility]/ZIP Co de Phone Number [facility] [place] [address] * (ABNORMAL) Differential, Automated (05/11/2024 2:00 AM EDT) [facility] Neutrophil % 85.8 % [facility] Neutrophil Absolute 22.16(H) 1.70 - 6.10 x10(3)/mc L [facility] Lymph % 1.5 % [facility] Lymphocytes Abs 0.4(L) 0.9 - 3.2 x10(3)/mc L [facility] Monocyte % 4.9 % [facility] Monocyte Abs 1.3(H) 0.3 - 0.9 x10(3)/mc L [facility] Eos % 0.0 % [facility] Eosinophils Abs 0.0 0.0 - 0.4 x10(3)/mc L [facility] Basophil % 0.1 % [facility] Baso Absolute 0.0 0.0 - 0.1 x10(3)/mc L [facility] Immature Gran % 7.70 % [facility] Comment: Immature granulocytes(IG's)percentage and absolute count will include metamyelocytes, myelocytes, and promyelocytes. Blood smears from CBCs yielding IG's will be scanned manually for concordance. If this scan disagrees with the automated IG or if promyelocytes are noted, a manual differential will be performed. Immature Gran Absolute 1.98(H) 0.00 - 0.04 x10(3)/ L [facility] Blood 05/11/2024 2:00 AM EDT 05/11/2024 2:07 AM EDT Narrative Resulting Agency Comment Spec In Lab Carlotta Davis MD HEMATOLOGY OR DERABLES Performing Organization Address City/State/[facility] Co de Phone Number [facility] [place] [address] * (ABNORMAL) Hemogram (05/11/2024 2:00 AM EDT) White Blood Cell 25.8(H) 4.0 - 9.5 x10(3)/ L [facility] Red Blood Cell 3.64(L) 4.58 - 5.54 x10(6)/ L [facility] Hemoglobin 10.9(L) 13.7 - 16.5 g/dL [facility] Hematocrit 32.5(L) 40.5 - 48.5 % [facility] Mean Cell Volume 89.3 82.9 - 93.1 fL [facility] Mean Cell Hemoglobin 29.9 27.5 - 32.1 pg [facility] Mean Cell Hemoglobin Concentration 33.5 32.0 - 35.7 g/dL [facility] Platelet 141(L) 145 - 357 x10(3)/[facility] LABORATORY RDW Standard Deviation 51.2(H) 36.0 - 45.0 fL [facility] RDW coefficient of variation 15.6(H) 11.4 - 13.8 % [facility] Mean Platelet Volume 12.9 7.6 - 12.9 fL [facility] NRBC% auto 0.0 % [facility] NRBC Absolute 0.000 0.000 - 0.000 x10(3)/mc L [facility] Blood 05/11/2024 2:00 AM EDT 05/11/2024 2:07 AM EDT Narrative Resulting Agency Comment Spec In Lab Carlotta Davis MD HEMATOLOGY OR DERABLES Performing Organization Address [facility] Co de Phone Number [facility] [place] [address] * Magnesium (05/11/2024 2:00 AM EDT) Magnesium 1.01 0.69 - 1.07 mmol/L [facility] Blood 05/11/2024 2:00 AM EDT 05/11/2024 2:07 AM EDT Narrative Resulting Agency Comment Spec In Lab Mary De La Fuente MD CHEMISTRY ORDERABL ES Performing Organization Address [facility] Co de Phone Number [facility] [place] [address] * Phosphorus (05/11/2024 2:00 AM EDT) Phosphorus 4.0 2.5 - 4.5 mg/dL [facility] Blood 05/11/2024 2:00 AM EDT 05/11/2024 2:07 AM EDT Narrative Resulting Agency Comment Spec In Lab Mary De La Fuente MD CHEMISTRY ORDERABL ES Performing Organization Address [facility] Co de Phone Number [facility] [place] [address] * (ABNORMAL) Basic Metabolic Panel (non-fasting) (05/11/2024 2:00 AM EDT) Glucose 212(H) 65 - 199 mg/dL [facility] Comment:Diabetes: >=200 mg/d L plus symptoms Blood Urea Nitrogen 72(H) 10 - 20 mg/dL [facility] Creatinine 2.58(H) 0.80 - 1.50 mg/dL [facility] Comment:result rechecked-HN Sodium 136 135 - 145 mmol/L [facility] Potassium 4.7 3.5 - 5.0 mmol/L [facility] Comment: Please note: ??Patients with WBC >100,000 may have falsely elevated Potassium levels. ??For accurate Potassium quantification in these patients send serum separator tube (gold top) for subsequent determinations. ??Contact the Clinical Chemistry Laboratory if there are any questions. Chloride 100 98 - 107 mmol/L [facility] Carbon Dioxide 24 22 - 31 mmol/L [facility] Anion Gap 12 5 - 15 mmol/L [facility] Calcium 8.3(L) 8.5 - 10.5 mg/dL [facility] Est Glomerular Filtration Rate 26(L) >=60 mL/min/1. 73 m?? [facility] Comment: This patient's estimated GFR [...] De La Fuente MD CHEMISTRY ORDERABL ES [facility] [place] [address] * Vancomycin Level, Random (05/11/2024 2:00 AM EDT) Vancomycin, Random 21.4 mg/L [facility] Comment: This level is for determination of the patient's vancomycin ykpd-iszvz-mwc-curve (AUC) value. Contact the inpatient pharmacy for interpretation. Blood 05/11/2024 2:00 AM EDT 05/11/2024 2:07 AM EDT Mary De La Fuente MD CHEMISTRY ORDERABL ES Performing Organization Address [facility] Co de Phone Number [facility] [place] [address] * (ABNORMAL) POCT Glucose (05/10/2024 11:40 PM EDT) Glucose, POC 230(H) 65 - 199 mg/dL [facility] Comment: Supplemental ranges: <140 mg/dL before meals <180 mg/dL all other times of the day Blood 05/10/2024 11:4 0 PM EDT 05/10/2024 11:40 PM EDT Treva Diaz MD POINT OF CARE TEST ORDERABLES Performing Organization Address [facility] Co de Phone Number [facility] [place] [address] * POCT Glucose (05/10/2024 4:09 PM EDT) Glucose, POC 189 65 - 199 mg/dL [facility] Comment: Supplemental ranges: <140 mg/dL before meals <180 mg/dL all other times of the day Blood 05/10/2024 4:09 PM EDT 05/10/2024 4:09 PM EDT Treva Diaz MD POINT OF CARE TEST ORDERABLES Performing Organization Address City/[facility] Co de Phone Number [facility] [place] [address] * POCT Glucose (05/10/2024 12:11 PM EDT) Glucose, POC 185 65 - 199 mg/dL [facility] Comment: Supplemental ranges: <140 mg/dL before meals <180 mg/dL all other times of the day Blood 05/10/2024 12:1 1 PM EDT 05/10/2024 12:11 PM EDT Mary De La Fuente MD POINT OF CARE TEST ORDERABLES Performing Organization Address [facility] Co de Phone Number [facility] [place] [address] * Vancomycin Level, Random (05/10/2024 12:00 PM EDT) Vancomycin, Random 15.5 mg/L [facility] Comment: This level is for determination of the patient's vancomycin snom-inctb-ztz-curve (AUC) value. Contact the inpatient pharmacy for interpretation. Blood 05/10/2024 12:0 0 PM EDT 05/10/2024 12:21 PM EDT Tho Dikcson MD CHEMISTRY ORDERABLES Performing Organization Address City/[facility]/ZIP Co de Phone Number [facility] [place] [address] * POCT Glucose (05/10/2024 8:09 AM EDT) Glucose, POC 195 65 - 199 mg/dL [facility] Comment: Supplemental ranges: <140 mg/dL before meals <180 mg/dL all other times of the day Blood 05/10/2024 8:09 AM EDT 05/10/2024 8:09 AM EDT Mary De La Fuente MD POINT OF CARE TEST ORDERABLES [facility] [place] [address] * CK (05/10/2024 6:55 AM EDT) Creatine Kinase 58 0 - 200 unit/L [facility] Blood Venous Draw / Unknown 05/10/2024 6:55 AM EDT 05/10/2024 7:41 AM EDT Narrative Resulting Agency Comment Spec In Lab Emmanuel Corey DO CHEMISTRY ORDERABLES Performing Organization Address City/[facility]/ZIP Co de Phone Number [facility] [place] [address] * (ABNORMAL) Phosphorus (05/10/2024 6:55 AM EDT) Pathologist [facility] Phosphorus 5.1(H) 2.5 - 4.5 mg/dL [facility] Blood 05/10/2024 6:55 AM EDT 05/10/2024 6:59 AM EDT Narrative Resulting Agency Comment Spec In Lab Tho Dickson MD CHEMISTRY ORDERABLES Performing Organization Address [facility]/ZIP Co de Phone Number [facility] [place] [address] * (ABNORMAL) Basic Metabolic Panel (non-fasting) (05/10/2024 6:55 AM EDT) Pathologist [facility] Glucose 193 65 - 199 mg/dL [facility] Comment:Diabetes: >=200 mg/d L plus symptoms Blood Urea Nitrogen 69(H) 10 - 20 mg/dL [facility] Creatinine 3.75(H) 0.80 - 1.50 mg/dL [facility] Sodium 128(L) 135 - 145 mmol/L [facility] Potassium 5.0 3.5 - 5.0 mmol/L [facility] Comment: Please note: ??Patients with WBC >100,000 may have falsely elevated Potassium levels. ??For accurate Potassium quantification in these patients send serum separator tube (gold top) for subsequent determinations. ??Contact the Clinical Chemistry Laboratory if there are any questions. Chloride 93(L) 98 - 107 mmol/L [facility] Carbon Dioxide 23 22 - 31 mmol/L [facility] Anion Gap 12 5 - 15 mmol/L [facility] Calcium 8.6 8.5 - 10.5 mg/dL [facility] Est Glomerular Filtration Rate 17(L) >=60 mL/min/1. 73 m?? [facility] Comment: This patient's estimated GFR [...] In Lab Tho Dickson MD CHEMISTRY ORDERABLES [facility] [place] [address] * Lactate, whole blood, send to lab ([facility] (05/10/2024 6:55 AM EDT) Lactate WB 1.7 0.5 - 2.2 mmol/L [facility] Blood 05/10/2024 6:55 AM EDT 05/10/2024 7:00 AM EDT Narrative Resulting Agency Comment Spec In Lab Tho Dickson MD CHEMISTRY ORDERABLES [facility] [place] [address] * MRI Foot wwo Contrast Right (05/10/2024 5:51 AM EDT) WORKSTATION ID [id number] RAD Anatomical Region Laterality Modality Foot Right [...] who have questions please contact the health caretaker grounds that requested your imaging first. ? Electronically signed by: Trinidad Mota MD, [facility] ([phone]), at 05/10/2024 12:56 PM Narrative 05/10/2024 12:56 [...] patients who have questions please contactthe health caretaker grounds that requested your imaging first. Electronically signed by: Trinidad Mota MD, [facility]([phone]), at 05/10/2024 12:56 PM Tho Dickson MD IMG MRI ORDERABLES * Creatinine, urine, random (05/10/2024 4:15 AM EDT) Creatinine, Urine 106 mg/dL [facility] Urine 05/10/2024 4:15 AM EDT 05/10/2024 4:23 AM EDT Narrative Resulting Agency Comment Spec In Lab Tho Dickson MD URINE ORDERABLES Performing Organization Address [facility] Co de Phone Number [facility] [place] [address] * Sodium, urine, random (05/10/2024 4:15 AM EDT) Sodium, Urine <20 mmol/L [facility] Urine 05/10/2024 4:15 AM EDT 05/10/2024 4:23 AM EDT Narrative Resulting Agency Comment Spec In Lab Tho Dickson MD URINE ORDERABLES Performing Organization Address [facility] Co de Phone Number [facility] [place] [address] * Urea nitrogen, urine, random (05/10/2024 4:15 AM EDT) Urea Nitrogen, Urine 580 mg/dL [facility] Urine 05/10/2024 4:15 AM EDT 05/10/2024 4:23 AM EDT Narrative Resulting Agency Comment Spec In Lab Tho Dickson MD URINE ORDERABLES Performing Organization Address [facility] Co de Phone Number [facility] [place] [address] * (ABNORMAL) Skin/Superficial Wound Culture Toe (05/10/2024 2:56 AM EDT) Skin/Superfic ial Wound Culture Rare mixed bacterial morphotypes suggestive of normal cutaneous armani including Rare Gram Negative Rods (A) [facility] Gram Stain Many Neutrophils seen Few Gram Positive Cocci seen (A) [facility] Organism Gram Negative Rods(A) [facility] Organism Gram Positive Cocci(A) [facility] Superficial Wound TOE STRUCTURE / Unknown 05/10/2024 2:56 AM EDT 05/10/2024 5:18 AM EDT Comment:Right toe wound Narrative Resulting Agency Comment Spec In Lab Tho Dickson MD MICROBIOLOGY - GENER AL ORDERABLES Performing Organization Address [facility] Co de Phone Number [facility] [place] [address] * (ABNORMAL) Urinalysis without microscopic (05/10/2024 2:42 AM EDT) Glucose, Urine Dipstick Negative Negative mg/dL [facility] Protein, Urine Dipstick 30(A) Negative mg/dL [facility] Bilirubin, Urine Dipstick Negative Negative mg/dL [facility] Comment: Clinical correlation required for positive Urine Bilirubin results as false positive may occur with some drugs and drug related products. If a false positive is suspected a serum total bilirubin should be considered if clinically indicated. Urobilinogen, Urine Dipstick Normal Normal mg/dL [facility] pH, Urn (dipstick) 5.5 5.0 - 8.0 [facility] Blood, Urine Dipstick Large(A) Negative mg/dL [facility] Ketone, Urine Dipstick Negative Negative mg/dL [facility] Nitrite, Urine Dipstick Negative Negative [facility] Leukocytes, Urine Dipstick Small(A) Negative [facility] Appearance, Urine Dipstick Cloudy(A) Clear [facility] Specific [place] Urine Automated 1.017 1.005 - 1.030 [facility] Color, Urine Dipstick [place](A) Yellow [facility] Urine 05/10/2024 2:42 AM EDT 05/10/2024 2:57 AM EDT Narrative Resulting Agency Comment Spec In Lab Tho Dickson MD URINE ORDERABLES [facility] [place] [address] * XR Chest One View (05/10/2024 2:37 AM EDT) Pathologist [facility] WORKSTATION ID [id number] RAD Anatomical Region Laterality Modality Chest N/A Digital Radiogra phy Impressions 05/10/2024 3:27 AM EDT Bibasilar atelectasis. Thank you for letting us participate in the care of this patient. ??If you are a health care provider and have any questions regarding this report, please contact the number below. ??For patients who have questions please contact the health caretaker grounds that requested your imaging first. ? Narrative [...] patients who have questions please contactthe health caretaker grounds that requested your imaging first. Electronically signed by: Yenni Ca MDN[facility]([phone]), at 05/10/2024 3:27 AM Tho Dickson MD IMG DX ORDERABLES * Blood culture (05/10/2024 2:32 AM EDT) Blood Culture No growth at 5 days. [facility] Blood STRUCTURE OF RIGHT HAND / Unknown 05/10/2024 2:32 AM EDT 05/10/2024 4:17 AM EDT Narrative Resulting Agency Comment Spec In Lab Tho Dickson MD MICROBIOLOGY - BLOOD ORDERABLES Performing Organization Address City/[facility]/ZIP Co de Phone Number [facility] [place] [address] * (ABNORMAL) POCT Glucose (05/10/2024 2:30 AM EDT) Pathologist [facility] Glucose, POC 201(H) 65 - 199 mg/dL [facility] Comment: Supplemental ranges: <140 mg/dL before meals <180 mg/dL all other times of the day Blood 05/10/2024 2:30 AM EDT 05/10/2024 2:30 AM EDT Tho Dickson MD POINT OF CARE TEST O RDERABLES Performing Organization Address [facility] Co de Phone Number [facility] [place] [address] * Vancomycin Level, Random (05/10/2024 2:20 AM EDT) [facility] Vancomycin, Random 26.9 mg/L [facility] Comment: This level is for determination of the patient's vancomycin pxwu-csmbr-ucb-curve (AUC) value. Contact the inpatient pharmacy for interpretation. Blood Venous Draw / Unknown 05/10/2024 2:20 AM EDT 05/10/2024 2:38 AM EDT Tho Dickson MD CHEMISTRY ORDERABLES Performing Organization Address City/[facility]/ZIP Co de Phone Number [facility] [place] [address] * Scan, Peripheral Blood (05/10/2024 2:20 AM EDT) [facility] Plat estimate Normal [facility] RBC Morphology Abnormal [facility] Ovalocytes 1-5 /HPF [facility] Sofía Cells 1-5 /HPF [facility] Plat, Giant Less than 1 /HPF [facility] Blood 05/10/2024 2:20 AM EDT 05/10/2024 2:36 AM EDT Narrative Resulting Agency Comment Spec In Lab Anita Camacho MD HEMATOLOGY ORDERABLE S Performing Organization Address [facility] Co de Phone Number [facility] [place] [address] * Type and Screen Validity (05/10/2024 2:20 AM EDT) T&S only valid at [facility] LABORATORY Comment:This Type and Screen result is only valid at the [facility] Hospital Blood 05/10/2024 2:20 AM EDT 05/10/2024 2:49 AM EDT Narrative Resulting Agency Comment Spec In Lab Anita Camacho MD BLOOD BANK LAB ORDER ANGELIQUE Performing Organization Address [facility] Co de Phone Number [facility] [place] [address] * ABORH Recheck Status (05/10/2024 2:20 AM EDT) ABORH Recheck Order Order Placed [facility] ABORH Type Recheck Completed [facility] Blood 05/10/2024 2:20 AM EDT 05/10/2024 2:49 AM EDT Narrative Resulting Agency Comment Spec In Lab Anita Camacho MD BLOOD BANK LAB ORDER ANGELIQUE Performing Organization Address City/[facility]/ZIP Co de Phone Number [facility] [place] [address] * (ABNORMAL) Differential, Automated (05/10/2024 2:20 AM EDT) Neutrophil % 89.2 % [facility] Neutrophil Absolute 25.39(H) 1.70 - 6.10 x10(3)/mc L [facility] Lymph % 1.2 % [facility] Lymphocytes Abs 0.4(L) 0.9 - 3.2 x10(3)/ L [facility] Monocyte % 2.9 % [facility] Monocyte Abs 0.8 0.3 - 0.9 x10(3)/[facility] LABORATORY Eos % 0.0 % [facility] Eosinophils Abs 0.0 0.0 - 0.4 x10(3)/[facility] LABORATORY Basophil % 0.2 % [facility] Baso Absolute 0.1 0.0 - 0.1 x10(3)/[facility] LABORATORY Immature Gran % 6.50 % [facility] Comment: Immature granulocytes(IG's)percentage and absolute count will include metamyelocytes, myelocytes, and promyelocytes. Blood smears from CBCs yielding IG's will be scanned manually for concordance. If this scan disagrees with the automated IG or if promyelocytes are noted, a manual differential will be performed. Immature Gran Absolute 1.85(H) 0.00 - 0.04 x10(3)/[facility] LABORATORY Blood 05/10/2024 2:20 AM EDT 05/10/2024 2:36 AM EDT Narrative Resulting Agency Comment Spec In Lab Anita Camacho MD HEMATOLOGY ORDERABLE S Performing Organization Address City/State/[facility] Co de Phone Number [facility] [place] [address] * (ABNORMAL) Hemogram (05/10/2024 2:20 AM EDT) White Blood Cell 28.5(H) 4.0 - 9.5 x10(3)/[facility] LABORATORY Red Blood Cell 3.83(L) 4.58 - 5.54 x10(6)/[facility] LABORATORY Hemoglobin 11.4(L) 13.7 - 16.5 g/dL [facility] Hematocrit 34.5(L) 40.5 - 48.5 % [facility] Mean Cell Volume 90.1 82.9 - 93.1 fL [facility] Mean Cell Hemoglobin 29.8 27.5 - 32.1 pg [facility] LABORATORY Mean Cell Hemoglobin Concentration 33.0 32.0 - 35.7 g/dL [facility] Platelet 135(L) 145 - 357 x10(3)/mc L [facility] RDW Standard Deviation 51.9(H) 36.0 - 45.0 fL [facility] RDW coefficient of variation 15.6(H) 11.4 - 13.8 % [facility] Mean Platelet Volume 12.8 7.6 - 12.9 fL [facility] NRBC% auto 0.0 % [facility] NRBC Absolute 0.000 0.000 - 0.000 x10(3)/mc L [facility] Blood 05/10/2024 2:20 AM EDT 05/10/2024 2:36 AM EDT Narrative Resulting Agency Comment Spec In Lab Anita Camacho MD HEMATOLOGY ORDERABLE S [facility] [place] [address] * (ABNORMAL) Hemoglobin A1c (05/10/2024 2:20 AM EDT) Hemoglobin A1c 5.9(H) 4.3 - 5.6 % [facility] Comment: Reference Range: 4.3 - [...] Mellitus, Diabetes Care 2013; 36: Suppl. 1, U42-00 Estimated Average Glucose See note mg/dL [facility] Comment: Estimated Average Glucose not appropriate for patients over 70 years of age. Blood 05/10/2024 2:20 AM EDT 05/10/2024 2:36 AM EDT Narrative Resulting Agency Comment Spec In Lab Tho Dickson MD CHEMISTRY ORDERABLES Performing Organization Address City/[facility]/ZIP Co de Phone Number [facility] [place] [address] * Hepatic Function Panel (05/10/2024 2:20 AM EDT) Protein, Total 7.6 6.1 - 8.0 g/dL [facility] Albumin 3.3 3.2 - 5.2 g/dL [facility] Aspartate Aminotransferase 21 0 - 39 unit/L [facility] Alanine Aminotransferase 19 0 - 55 unit/L [facility] Alkaline Phosphatase 42 40 - 130 unit/L [facility] Bilirubin, Total 0.5 0.2 - 1.3 mg/dL [facility] Bilirubin, Direct 0.2 0.0 - 0.3 mg/dL [facility] Blood 05/10/2024 2:20 AM EDT 05/10/2024 2:36 AM EDT Narrative Resulting Agency Comment Spec In Lab Tho Dickson MD CHEMISTRY ORDERABLES Performing Organization Address [facility] Co de Phone Number [facility] [place] [address] * (ABNORMAL) Phosphorus (05/10/2024 2:20 AM EDT) Phosphorus 4.6(H) 2.5 - 4.5 mg/dL [facility] Blood 05/10/2024 2:20 AM EDT 05/10/2024 2:36 AM EDT Narrative Resulting Agency Comment Spec In Lab Tho Dickson MD CHEMISTRY ORDERABLES Performing Organization Address City/[facility]/ZIP Co de Phone Number [facility] [place] [address] * Magnesium (05/10/2024 2:20 AM EDT) Magnesium 0.85 0.69 - 1.07 mmol/L [facility] Blood 05/10/2024 2:20 AM EDT 05/10/2024 2:36 AM EDT Narrative Resulting Agency Comment Spec In Lab Tho Dickson MD CHEMISTRY ORDERABLES [facility] [place] [address] * (ABNORMAL) Basic Metabolic Panel (non-fasting) (05/10/2024 2:20 AM EDT) Glucose 196 65 - 199 mg/dL [facility] Comment:Diabetes: >=200 mg/d L plus symptoms Blood Urea Nitrogen 71(H) 10 - 20 mg/dL [facility] Creatinine 3.94(H) 0.80 - 1.50 mg/dL [facility] Sodium 129(L) 135 - 145 mmol/L [facility] Potassium 5.3(H) 3.5 - 5.0 mmol/L [facility] Comment: Please note: ??Patients with WBC >100,000 may have falsely elevated Potassium levels. ??For accurate Potassium quantification in these patients send serum separator tube (gold top) for subsequent determinations. ??Contact the Clinical Chemistry Laboratory if there are any questions. Chloride 93(L) 98 - 107 mmol/L [facility] Carbon Dioxide 24 22 - 31 mmol/L [facility] Anion Gap 12 5 - 15 mmol/L [facility] Calcium 8.5 8.5 - 10.5 mg/dL [facility] Est Glomerular Filtration Rate 16(L) >=60 mL/min/1. 73 m?? [facility] Comment: This patient's estimated GFR [...] Dickson MD CHEMISTRY ORDERABLES Performing Organization Address [facility] Co de Phone Number [facility] [place] [address] * (ABNORMAL) Prothrombin Time (05/10/2024 2:20 AM EDT) Prothrombin Time 27.9(H) 9.4 - 12.5 sec [facility] International Normalization Ratio 2.5 [facility] Comment: An INR <2.0 indicates [...] MD HEMATOLOGY ORDERABLE S Performing Organization Address [facility] Co de Phone Number [facility] [place] [address] * Type and screen ([facility]/TARA) (05/10/2024 2:20 AM EDT) ABORH Type O POSITIVE [facility] Patient BB History Not Found [facility] Expires at 2359 on: 05-13-2024 [facility] Ab Screen Interp Negative [facility] Blood 05/10/2024 2:20 AM EDT 05/10/2024 2:20 AM EDT Narrative [facility] - 05/10/2024 2:20 AM EDT This Type and Screen result is only valid at the [facility] Resulting Agency Comment Spec In Lab Tho Dickson MD BLOOD BANK LAB ORDER ANGELIQUE [facility] [place] [address] * (ABNORMAL) Lactate, whole blood, send to lab ([facility] (05/10/2024 2:20 AM EDT) Lactate WB 2.3(H) 0.5 - 2.2 mmol/L [facility] Blood 05/10/2024 2:20 AM EDT 05/10/2024 2:36 AM EDT Narrative Resulting Agency Comment Spec In Lab Tho Dickson MD CHEMISTRY ORDERABLES Performing Organization Address [facility]/ZIP Co de Phone Number [facility] [place] [address] documented in this encounter Visit Diagnoses Not [...] on Sun05/24/24 at 0900, Until Discontinued, Routine glucagon (Glucagen) [...] First dose (after last modification) on [facility] 05/22/24 at 1230, Until Discontinued, Routine [...] RN) 0832 (Given - Provider: Juan José Lai RN) cefTRIAXone (Rocephin) 2 g vial attach to sodium chloride 0.9% 50 mL Mini-Bag Plus 2 g, Intravenous, EVERY 24 HOURS, First dose on Sun05/14/24 at 1600, Until Discontinued, Administer over 30 Minutes, Indication for (Active or Suspected): Bone/Joint 171 (New Bag - Provider: Inez Boswell, JACKIE)1742 (Stopped - Provider: Yg Prince, JACKIE) 1318 (DEC Hold - Provider: Admin Adt - Reason: Transfer to a Procedural area)175 (MAR Unhold - Provider: Admin Adt)183 (Restarted - Provider: Trice Zhao, JACKIE) 1600 (Due)1815 (Due: Stopped) dilTIAZem (Cardizem) tablet [...] Procedural area)175 (MAR Unhold - Provider: Admin Adt)1842 (Given - Provider: Trice Zhao, JACKIE) 0114 (Given - Provider: Saima Quinteros RN)0600 [...] area)175 (MAR Unhold - Provider: Admin Adt) 0831 (Given - Provider: Juan José Lai, JACKIE) furosemide (Lasix) tablet 40 mg (CANCELED) 40 mg, Oral, EVERY MORNING, First dose on Sun05/21/24 at 1115, Until Discontinued, Routine 1115 (Due) 0641 (Given - Provider: Alyssa Villalobos RN)1318 (DEC Hold - Provider: Admin Adt - Reason: Transfer to a Procedural area)175 (MAR Unhold - Provider: Admin Adt) 06 (Given [...] - Reason: Transfer to a Procedural area)1758 (MAR Unhold - Provider: Admin Adt)2109 (Given [...] HOURS, First dose (after last modification) on [place] 05/18/24 at 1430, Until Discontinued, Routine 0258 (Given - Provider: Pretty Ramirez RN)0612 (Given - Provider: Pretty Ramirez RN)1030 (Not Given - Provider: Yg Prince RN - Reason: Transfer to a Procedural area - Comment: in IR)1430 (Not Given - Provider: Yg Prince RN - Reason: Patient/family refused)1830 (Not Given - Provider: Alyssa Villlaobos RN - Reason: Patient/family refused)2156 (Given - [...] Discontinued, Routine 1300 (Given - Provider: Yg Prince, RN) 0819 (Given - Provider: Trice Zhao, RN)1318 (DEC Hold - Provider: Admin Adt [...] 2 minutes. 1301 (Given - Provider: Yg Prince, JACKIE)2039 (Given - Provider: Alyssa Villalobos RN) 0819 (Given - Provider: Trice Zhao RN)1318 (DEC Hold - Provider: Admin Adt - Reason: Transfer to a Procedural area)175 (DEC Unhold - Provider: Admin Adt)2108 (Given [...] RN) 0434 (Given - Provider: Alyssa Villalobos RN)1318 (DEC Hold - Provider: Admin Adt - Reason: Transfer to a Procedural area)175 (DEC Unhold - Provider: Admin Adt) 08 (Given - Provider: Juan José Lai RN) [...] - Reason: Transfer to a Procedural area)1758 ([facility] Unhold - Provider: Admin Adt) simethicone (Gas-X [...] documented as of this encounter Care Teams Ampoule Sealer Relationship 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
--- OUTSIDE RECORDS SUMMARY | 2024-06-19 16:35 | XMS_ITS | Encounter Summary ---
[place] [address] Care Team Providers Care Retail Financial Analyst Name Role Phone None Primary Care Provider Unavailabl e Reason for Visit * Auth/Cert (Routine) Specialty Diagnoses / Procedures Referred By Contac t Referred To Contact Diagnoses Septic shock septiic shock Procedures ER Tho Aquino MD [facility] [place] [address] [facility] Referral ID Status Reason Start Date Expiration Date Visits Re quested Visits Authorized [id number] 1 1 Encounter Details Date Type Department Care Team (Late st Contact Info) Description 05/14/2024 10:37 AM EDT Anesthesia Event [place] [address] Gertrudis Kimball MD [facility] [place] [address] Kimberlee Fontenot MD [facility] [place] [address] Anesthesia Record Procedure Summary Procedure Name Responsible [...] Procedure Summary Date: 05/14/24 Room / Location: [facility] OR [address] [place] [address] MAIN OR Anesthesia Start: 1037 Anesthesia Stop: 1219 Procedure: AMPUTATION, TRANSMETATARSAL TOE, ONE TOE (WRVU 6.64) (Right: Foot) Diagnosis: (right second toe osteomyelitis) Surgeons: Elkin Garcia MD Responsible Provider: Gertrudis Kimball MD Anesthesia Type: general ASA Status: 3 All Anesthesia Providers: Anesthesiologist: Gertrudis Kimball MD LEGAL BILLING ANALYST: Fátima Garcia CRNA Vitals Value Taken Time BP 142/72 05/14/24 1415 Temp 36.4 ??C (97.5 ??F) 05/14/24 1415 Pulse 96 05/14/24 1427 Resp 21 05/14/24 1430 SpO2 96 % 05/14/24 1442 Pain Level 3 05/14/24 1430 Vitals shown include unfiled device data. Patient Location: PACU/[facility] Level of Consciousness: Conscious but Sleepy [...] risks discussed with patient. Plan discussed with LEGAL BILLING ANALYST. Anesthesia Screening documented in this encounter Plan [...] mg documented in this encounter Care Teams Retail Financial Analyst Relationship 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
--- OUTSIDE RECORDS SUMMARY | 2024-06-19 16:37 | XMS_ITS | Encounter Summary ---
[place] [address] Care Team Providers Care Blind Cleaner Name Role Phone None Primary Care Provider Unavailabl e Reason for Visit * Reason Comments Low Back Pain Bilateral Hip Pain Bilateral Leg Pain Encounter Details Date Type Department Care Team (Late st Contact Info) Description 11/26/2017 2:20 PM EST Office Visit [place] [address] Navjot Castillo MD [facility] [place] [address] Degenerative lumbar spinal stenosis Social History Tobacco [...] None Social history: The patient worked at [employer] until one year ago. He stopped working [...] SI joint. He can flex 70?? and dqatfe39??. Neurological exam: He walks with a normal [...] claudication documented in this encounter Care Teams Blind Cleaner Relationship 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
--- OUTSIDE RECORDS SUMMARY | 2024-06-19 16:37 | XMS_ITS | Encounter Summary ---
Author Organization [facility] [place] [address] Care Team Providers Care Woodworking Bench Carpenter Name Role Phone None Primary Care Provider Unavailabl e Encounter Details Date Type Department Care Team (Late st Contact Info) Description 2024 9:25 PM EDT Ancillary Procedure [place] [address] Tho Reyes MD [facility] [address] Social History Tobacco Use Types Packs/Day Years Used Date Smoking Tobacco: Former Smokeless Tobacco: Never [facility] Inpatient Questions Answer Date Recorded Does [...] is for storage only. Tho Reyes MD IM FILM LIBRARY ORD ERABLES [place], [place] documented in this encounter Visit Diagnoses Not on filedocumented in this encounter Care Teams Woodworking Bench Carpenter Relationship 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
--- OUTSIDE RECORDS SUMMARY | 2024-06-19 16:37 | XMS_ITS | Encounter Summary ---
Author Organization [facility] [place] [address] Care Team Providers Care Gut Snatcher Name Role Phone None Primary Care Provider Unavailabl e Encounter Details Date Type Department Care Team (Late st Contact Info) Description 2024 9:20 PM EDT Ancillary Procedure [place] [address] Tho Reyes MD [facility] [place] [address] Social History Tobacco Use Types Packs/Day Years Used Date Smoking Tobacco: Former Smokeless Tobacco: Never [facility] Inpatient Questions Answer Date Recorded [...] Lower Extremity (2024 9:16 PM EDT) Narrative RAD - 2024 9:16 PM EDT This exam is auto-finalizing. It's purpose is for storage only. Tho Reyes MD IM FILM LIBRARY ORD ERABLES Performing Organization Address City/State/[facility] Co de Phone Number [facility] [place], [place] documented in this encounter Visit Diagnoses Not on filedocumented in this encounter Care Teams Gut Snatcher Relationship 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
--- OUTSIDE RECORDS SUMMARY | 2024-06-19 16:37 | XMS_ITS | Encounter Summary ---
Author Organization [facility] Address [facility] [place] [address] Care Team Providers Care Bridge Leverman Name Role Phone None Primary Care Provider Unavailabl e Encounter Details Date Type Department Care Team (Latest Contact Info) Description 11/26/2017 12:39 PM EST - 11/26/2017 11:59 PM [facility] Hospital Encounter XRay [place] [address] [place] [address] Navjot Castillo MD [facility] [place] [address] Spinal stenosis of lumbar region, unspecified whether [...] present documented in this encounter Care Teams Bridge Leverman Relationship 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
--- OUTSIDE RECORDS SUMMARY | 2024-06-19 16:37 | XMS_ITS | Encounter Summary ---
[place] [address] Care Team Providers Care Chart Computer Name Role Phone Unknown Primary Care Provider Unavailabl e Reason for Referral * Consultation (Routine) - Closed Specialty Diagnoses / Procedures Referred By Contac t Referred To Contact Orthopaedics Diagnoses Degenerative lumbar spinal stenosis Darin Gonzáles MD [facility] [place] [address] Navjot Castillo MD [facility] [place] [address] Referral ID Status Reason Start Date Expiration Date V isits Requested Visits Authorized [id number] Closed Consult, Test & Treat 09/25/2017 09/25/2018 1 1 Reason for Visit * Reason Onset Date Comments Medication Refill 09/25/2017 Encounter Details Date Type Department Care Team (Late st Contact Info) Description 09/25/2017 Refill Pain Management at [place] [phone] Darin Gonzáles MD [facility] [place] [address] Degenerative lumbar spinal stenosis Social History Tobacco Use Types Packs/Day Years Used Date Smoking Tobacco: Never Assessed Sex and Gender Information Value Date Recorded Sex Assigned at Not on file Gender Identity Not on file Sexual Orientation Not on file documented as of this encounter Plan of Treatment Scheduled Referrals Name Type Priority Associated Diagnoses Orde r Schedule Referral to Spine Center Outpatient Referral Routine Degenerative lumbar spinal stenosis Ordered: 09/25/2017 documented as of this encounter Visit Diagnoses Diagnosis Degenerative lumbar spinal stenosis Spinal stenosis, lumbar region, without neurogenic claudication documented in this encounter Care Teams Chart Computer Relationship Specialty Start Date End Date Unknown None PCP - General 07/25/17 11/25/17 documented as of this encounter
--- OUTSIDE RECORDS SUMMARY | 2024-06-19 16:37 | XMS_ITS | Encounter Summary ---
[place] [address] Care Team Providers Care Office Rep Name Role Phone Cruzito Hager MD Primary Care Provider + Encounter Details Date Type Department Care Team (Latest Contact Info) Description 01/08/2017 - 01/08/2017 11:59 PM EDT Hospital Encounter [place] [address] Navjot Castillo MD [facility] [place] [address] Discharge Disposition: Home Social History Tobacco Use [...] MR Spine (01/08/2017 12:00 AM EDT) Narrative [facility] - 09/26/2017 1:39 PM EST This exam is for storage only and is auto-finalizing. Navjot Castillo MD IMG FILM LIBRARY ORD ERABLES [facility] [place], [place] documented in this encounter Visit Diagnoses Not on filedocumented in this encounter Care Teams Office Rep Relationship Specialty Start Date End Date Cruzito Hager MD [address] [place] [address] PCP - General 09/06/10 07/24/17 documented as of this encounter
--- OUTSIDE RECORDS SUMMARY | 2024-06-19 16:37 | XMS_ITS | Encounter Summary ---
[place] [address] Care Team Providers Care Shellfish Processing Machine Tender Name Role Phone None Primary Care Provider Unavailabl e Reason for Visit * Auth/Cert (Routine) Specialty Diagnoses / Procedures Referred By Contac t Referred To Contact Diagnoses Septic shock septiic shock Procedures ER Tho Aquino MD [facility] [place] [address] [facility] Referral ID Status Reason Start Date Expiration Date Visits Re quested Visits Authorized [id number] 1 1 Encounter Details Date Type Department Care Team (Late st Contact Info) Description 05/14/2024 10:00 AM EDT - 05/14/2024 11:24 AM EDT Surgery Main [place] [id number] Elkin Garcia MD [facility] [place] [address] AMPUTATION, TRANSMETATARSAL TOE, ONE TOE (WRVU 6.64) Social History Tobacco Use Types Packs/Day Years Used Date Smoking Tobacco: Former Cigarettes 14 0.7 S tarted: 2023 Smokeless Tobacco: Never Tobacco Cessation:Counseling Given: Not Answered Alcohol Use Standard Drinks/Week Comments Yes 0 (1 standard drink = 0.6 oz pur e alcohol) 3-4 PER [facility] Inpatient Questions Answer Date Recorded Does Anyone [...] please contact your inpatient physician through the [facility] Retirement Plan Specialist . Issues afterhours and on weekends will [...] home oxygen, HFpEF, HTN who presented to [facility] for rt LE cellulitis, transferred to [facility] for septic shock. At end of March he dropped cylinder block on rt foot, bleeding and painful. Kept bandaged and sock on it, same sock on it for the last week, reports sock became fused to wound. Denies paresthesia. Wasable to walk w/out difficulty. In last several days erythema and edema spread upper Rt LE to knee. Fevers & chills for last 24hrs. [place] lightheaded, weak, & couldn't get out of [...] prior to OSH departure. On arrival to [facility]: HR 96, o2 sat mid 90s on [...] care, the same day as transfer to [facility]. On the general medicine floor, he was [...] border dressing. (Melgisorb Ag 6x6 PS # [id number]) (Melgisorb Ag 4x4 PS # [id number]) Sacrum/ischium: open to air, utilize Z-guard if [...] (!) 167.8 kg (369 lb 14.9 oz) (08/09/24 0624) Functional and Cognitive Status: functional requiring [...] 05/10/2024 2:37 AM) Result Value WORKSTATION ID [id number] Impression Bibasilar atelectasis. Thank you for letting us participate in the care of this patient. If you are a health care provider and have any questions regarding this report, please contact the number below. For patients who have questions please contact the health career services manager that requested your imaging first. Foot wwo Contrast Right (Exam End: 05/10/2024 5:51 AM) Result Value WORKSTATION ID [id number] Impression 1. Soft tissue irregularity of the [...] who have questions please contact the health career services manager that requested your imaging first. Retroperitoneal Complete (Exam End: 05/20/2024 10:36 AM) Result Value WORKSTATION ID [id number] Impression 1. Very limited exam secondary to [...] who have questions, please contact the health career services manager that requested your imaging first. Teofilo Ruiz, Staff Physician Electronically Signed Final Report 05/20/2024 11:36 am Pending Studies and Lab Data: Discharge Conditions/Prognosis: s/p Left 2nd toe amputation, recovering, requiring rehab. Back to baseline. Discharge to: [facility] Updated Allergies/ADRs: No Known [...] Center 06/03/2024 2:00 PM Lu Mcfarland APRN [facility] ID 5C [facility] 06/05/2024 4:00 PM Elkin Garcia MD [facility] ORTH 3C [facility] Your Discharge Medication List Your Medications New [...] as much as possible. Call your doctor ([phone]) if you develop: Fever greater than 100.5 Severe nausea or vomiting Increasing pain that is not controlled by pain medications Increasing redness, swelling, or drainage from incisions Change in sensation FOLLOW-UP APPOINTMENTS: 1. You will have follow-up appointments at [facility] as indicated below in Future Appointment and Orders. 2. You will need to have x-rays prior to your follow-up appointment listed below. Please come to Radiology, desk 3T, 1 hour BEFORE that appointment for these x-rays. Future Appointments Date Time Provider Department Center 06/03/2024 2:00 PM Lu Mcfarland APRN [facility] ID 5C [facility] 06/05/2024 4:00 PM Elkin Garcia MD [facility] ORTH 3C [facility] If you have questions or concerns: Sunday [...] the day after the procedure, use an hwqx-vsi-cmvfqhk spray to numb your throat. Sucking on [...] occurs, please contact your Doctor. Please call [phone] before 8pm Mon-Fri with problems, questions or concerns. If you call after 8pm or on weekends, call the Hospital at [phone] and ask to speak to the Control Specialist supervisor wire rope fabrication and the core machine operator will contact that person for you. When should you call for help? Call [phone] anytime you think you may need emergency [...] any problems. Where can you learn more? [facility] View your After Visit Summary and more online at [email or web address] If you would like to provide feedback about your hospital experience, please call the Office of Patient and Family Relations at . If you have received this After Visit Summary in error, please immediately return it in person to the department, or notify the [facility] Privacy Office by calling toll free at between the hours of 8AM and 5PM to arrange for our retrieval of the documents at no cost to you. Content Version: 12.2 ?? 0192-9605 [employer]. Care instructions adapted under license by [facility]. If you have questions about a medical condition or this instruction, always ask your healthcare professional. [employer] disclaims any warranty or liability for your [...] is during regular working hours, please call [phone]. If it is after 5 pm or a weekend or holiday, call [phone] and ask for the Glost Kiln Placer supervisor wire rope fabrication for Interventional Radiology. You have received medication [...] occurs, please contact your M. D. Updated 10/17/19 Future Appointments and Orders Future Appointments and Orders Future Appointments Provider Department Dept Phone 06/03/2024 2:00 PM Lu Mcfarland APRN Infectious Disease at [facility] Arrive at: [facility] [place] Area 5C [phone] 06/05/2024 4:00 PM Elkin Garcia MD Orthopaedics at [facility] Arrive at: [facility] 3C [phone] Future Orders Complete By Expires OPAT: Order / Recommendation for Post Discharge IV Antibiotic Management [QNX627 CPT(R)] As directed Process Instructions: If no progress note charted, please enter Clinical details in comments. Scheduling Instructions: Comments: - If this order was signed greater than 72 hours prior to [facility] discharge, please call to confirm the accuracy of this order. Please Fax all results to: OPAT Program Infectious Disease Section [facility], [place] [address] FAX: - After hours, please contact the Infectious Disease Physician supervisor wire rope fabrication at . - Line care instructions - see flush/heparin orders. Facilities may follow organizational policies/practices regarding heparin. - [facility] for medication administration/crane hooker and catheter care/maintenance authorized. HD Line [...] every Sunday fax results to OPAT at [phone]. Please draw labs off PICC line. Please see OPAT order for lab draw details. Please RN visit for IV ABX teaching and ongoing assessment. Nursing Home for Medication Administration/Hookup and catheter care/maintenance: - Teach Patient/Caregiver goals/self-monitoring/therapy administration to independence per the Nursing Care Plan. - [facility] visit frequency; initial, weekly and 2 PRN [...] 05/20/2024 11:36 am) PATIENT INFO: ID #: [id number].O.B.: [id number] (69 yrs)(M) Name: JOSSY SHANKS Visit Date: 05/20/2024 10:34 am PERFORMED BY: Attending: Teofilo Ruiz MD Resident: Trinidad Light MD Performed By: Lulu Shin RDMS Referred By: SABA SPEARS Location: [place] SERVICE(S) PROVIDED: URETRO - Retroperitoneal Complete - [id number] INDICATIONS: CKD, increase BUN TECHNIQUE/SCAN QUALITY: Scan [...] patients whohave questions, please contact the health career services manager that requested your imaging first. [...] the day after the procedure, use an bryz-jxu-rdmzwar spray to numb your throat. Sucking on [...] occurs, please contact your Doctor. Please call [phone] before 8pm Mon-Fri with problems, questions or concerns. If you call after 8pm or on weekends, call the Hospital at [phone] and ask to speak to the Control Specialist supervisor wire rope fabrication and the core machine operator will contact that person for you. When should you call for help? Call [phone] anytime you think you may need emergency [...] any problems. Where can you learn more? [facility] View your After Visit Summary and more online at [email or web address] If you would like to provide feedback about your hospital experience, please call the Office of Patient and Family Relations at . If you have received this After Visit Summary in error, please immediately return it in person to the department, or notify the [facility] Privacy Office by calling toll free at between the hours of 8AM and 5PM to arrange for our retrieval of the documents at no cost to you. Content Version: 12.2 ?? 0577-5019 [employer]. Care instructions adapted under license by [facility]. If you have questions about a medical condition or this instruction, always ask your healthcare professional. [employer] disclaims any warranty or liability for your [...] is during regular working hours, please call [phone]. If it is after 5 pm or a weekend or holiday, call [phone] and ask for the Glost Kiln Placer supervisor wire rope fabrication for Interventional Radiology. You have received medication [...] Center 06/03/2024 2:00 PM Lu Mcfarland APRN [facility] ID 5C [facility] 06/05/2024 4:00 PM Elkin Garcia MD [facility] ORTH 3C [facility] Your Discharge Medication List Your Medications New [...] as much as possible. Call your doctor ([phone]) if you develop: Fever greater than 100.5 Severe nausea or vomiting Increasing pain that is not controlled by pain medications Increasing redness, swelling, or drainage from incisions Change in sensation FOLLOW-UP APPOINTMENTS: 1. You will have follow-up appointments at [facility] as indicated below in Future Appointment and Orders. 2. You will need to have x-rays prior to your follow-up appointment listed below. Please come to Radiology, desk 3T, 1 hour BEFORE that appointment for these x-rays. Future Appointments Date Time Provider Department Center 06/03/2024 2:00 PM Lu Mcfarland APRN [facility] ID 5C [facility] 06/05/2024 4:00 PM Elkin Garcia MD [facility] ORTH 3C [facility] If you have questions or concerns: Sunday [...] spent >30 minutes (Day of Discharge Code 58332) involved in the final examination of the patient, discussion of the hospital stay, instructions for continuing care to all relevant caregivers, and preparation of discharge records, prescriptions and referral forms. Plans Discharge to [facility] rehab Follow-up scheduled with ID, ortho, provider at [facility] Please see the Discharge Summary for complete details of any medication changes and additional plans. * Yg Jaffe - 05/23/2024 2:44 PM EDT Office of Care Management(OCM)/Government Clerk(RS) Patient Name: Jossy Shanks : 1955 Patient has been offered a SNF bed at [phone]. [facility] arranged for a BLS transport at 1530. Ambulance will need: Medicare ambulance form completed and signed (MD or Bacteriologist Food) [facility], if active No MD to MD report necessary. Please call Nursing Report to , ask for geriatric personal care aide. Info to accompany patient: Narcotic Prescriptions Copies of Medication Administration Records and IV sheets for past two weeks. Plan: Government Clerk will be available to the patient and Bacteriologist Food for further assistance. Patient to discharge to: [facility] [address] [place] [address] Yg Jaffe Government Clerk * Shirley Samuel RN - 05/23/2024 12:05 PM EDT Physician Certification Statement for Non-Emergency Ambulance Services Section I - General Information Guanakojaren Spivey Rimma 1955 Medicare Number: n/a Transport Date: 05/23/2024 (PCS is valid for round trips on this date and for all repetitive trips in the 60-day range as noted below.) Origin: [facility] Destination: [facility] Is the patient's [...] van (i.e. seated during transport, without medical assistant dermatology or monitoring?): No 4) In addition to [...] the Centers of Medicare and Medicaid Services ([facility]) to support the determination of medical [...] who have questions, please contact the health career services manager that requested your imaging first. [...] who have questions please contact the health career services manager that requested your imaging first. Chest One View Final Result Bibasilar atelectasis. Thank you for letting us participate in the care of this patient. If you are a health care provider and have any questions regarding this report, please contact the number below. For patients who have questions please contact the health career services manager that requested your imaging first. SCOPY: Reports [...] with them as documented. Tl Steele MD [facility] Gastroenterology * Irene Bravo RN - 05/22/2024 [...] Zhao RN - 05/22/2024 12:47 PM EDT Piano Sounding Board Matcher spoke with JACKIE Nuñez from Endo regarding [...] I/O last 3 completed shifts: In: 184 [P.O.:1841] Out: 4725 [Urine:4725] CBC Lab Results Component [...] EDTSummary: Pending discharge ID is treating Jossy Dalton Shanks for an Methicillin-susceptible Coagulase negative [...] with PT - hoping to go to [facility] today Meds: pantoprazole 40 mg Intravenous BID [...] upcoming EGD, and availability of bed at [facility]. -ordered T&S in case continues [...] Medicine Hospital Medicine Red Team - Pager [phone] Associated attestation - Saba Spears MD - [...] transfuse and monitor response. Dispo to [facility] for rehab pending Hgb stability and EGD. I have examined the patient myself and personally reviewed all studies. In addition, I certify thatI am a D-H credentialed attending provider with admitting privileges and that the patient meets or has met medical necessity to require an inpatient IPI level of care meeting a minimum of two midnights or is on the [facility] inpatient only procedure list (status C) due to: OM requiring IV abx * Lazaro Aaron, RETAIL CENTER RECEPTIONIST - 05/21/2024 4:05 PM EDT Physical Therapy [...] discharge to swing bed rehab facility vs fpc facility once medically ready for hospital discharge. Pt will continue to benefit from skilled physical therapy while in the hospital in order to maximize independence and safety with functional mobility and achieve therapeutic goals. Discharge Recommendations: Based on current findings- swing bed rehabilitation facility, fpc facility Discharge recommendation is based on the [...] with stable vital signs. Total Time: 34 (7077-3132) minutes. 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 Discharge Recommendation: fpc facility, swing bed rehabilitation facility Equipment Recommendations: [...] 2-3 times/wk Total Minutes, Occupational Therapy: 40 ([facility] x3 ([phone])) Pager: [phone] Penny Rodriguez OT Occupational Therapy Rehabilitation Department [...] : 1955 AGE: 69 y.o. Address: [address] [place] [address] (home) Mobile: Telephone Information: Referring Provider: Anna [...] Galvan MD - 05/21/2024 6:30 AM EDT [facility] Medicine - Red Team Inpatient Progress Note [...] Medicine Hospital Medicine Red Team - Pager [phone] Associated attestation - Saba Spears MD - [...] 7s. Appreciate GI consult. Dispo to [facility] pending Hgb and EGD. I have examined the patient myself and personally reviewed all studies. In addition, I certify thatI am a D-H credentialed attending provider with admitting privileges and that the patient meets or has met medical necessity to require an inpatient IPI level of care meeting a minimum of two midnights or is on the [facility] inpatient only procedure list (status C) [...] [facility] Medicine Red Team - Pager [phone] Associated attestation - Saba Spears MD - [...] discharge to swing bed rehab facility vs fpc facility once medically ready for hospital discharge. Pt will continue to benefit from skilled physical therapy while in the hospital in order to maximize independence and safety with functional mobility and achieve therapeutic goals. Discharge Recommendations: Based on current findings- swing bed rehabilitation facility, fpc facility Discharge recommendation is based on the [...] Ho PT, Doctor of Physical Therapy Pager: [phone] Physical Therapy Inpatient Rehabilitation Department * Rebeca [...] decreased insight into deficits Vision: corrective lenses aircraft electrical systems specialist Endurance: decreased activity tolerance Vitals: Stable on [...] with activities of daily living. Discharge Recommendation: fpc facility, swing bed rehabilitation facility Equipment Recommendations: [...] times/wk Total Minutes, Occupational Therapy: 47 Pager: [phone] Rebeca Moeller OT Occupational Therapy Rehabilitation Department [...] Medicine Hospital Medicine Red Team - Pager [phone] Associated attestation - Saba Spears MD - [...] of two midnights or is on the [facility] inpatient only procedure list (status C) [...] for a hospital day 9 nutrition evaluation. Piano Sounding Board Matcher met with pt at bedside. Pt saidhe [...] unless consulted in the interim. Julissa Weathers Knitting Machine Tender * Mihaela Galvan MD - 05/18/2024 7:20 AM EDT [facility] Medicine - Red [...] Meds: insulin lispro 1-6 Units Subcutaneous Q4H [facility] insulin glargine (Lantus;Semglee) (100 unit/mL) subcutaneous injection 12 Units Subcutaneous Nightly rivaroxaban 15 mg Oral Daily cefTRIAXone 2 g Intravenous Q24H insulin lispro 0-8 Units Subcutaneous TID WC carvediloL 25 mg Oral BID dilTIAZem 60 mg Oral Q6H [facility] PRN medications simethicone, ondansetron, oxyCODONE, melatonin, glucose [...] FSIH on CKD. He will need his renal [...] [facility] Medicine Red Team - Pager [phone] Associated attestation - Saba Spears MD - [...] Harrison MD - 05/17/2024 6:28 AM EDT [facility] Red Team Inpatient Progress Note ID: [...] [facility] Medicine Red Team - Pager [phone] Associated attestation - Saba Spears MD - [...] 6.64) performed by Elkin Garcia MD at [facility] Active Non-Hospital Problems Diagnosis [...] [place] PT, Doctor of Physical Therapy Pager: [phone] Physical Therapy Inpatient Rehabilitation Department * Emmanuel [...] Component Value - Date/Time MRSA PCR Screen ([facility]/CGP/APD/NLH) [[id number]] Collected: 05/15/24 1615 Lab Status: Final result Specimen: Nasopharyngeal Swab Updated: 05/15/242012 MRSA Result Negative MRSA Interp -- Methicillin-resistant Staphylococcus aureus (MRSA) is NOT DETECTED The MRSA target DNA sequences (mec and SCC) were not detected within the acceptable ranges using the Xpert MRSA NxG on the GeneXpert Dx System ([employer]). This suggests the absence of MRSA in the patient specimen submitted for testing. This test is cleared by the U.S. Food and Drug Administration for clinical use and its performance characteristics have been verified by the Clinical Genomics and [facility] Technology Laboratory at [facility]. This result does not rule out the presence of any other organisms. Rare false negative results may occur if MRSA is present at low concentrations with much higher concentrations of other organisms including MRSE or S. aureus with an empty SCC cassette. Comment: [VERIFIED DATE]05.15.24 Verified By:Lupe Jensen (Electronic Signature) Tissue Culture, Aerobic & Anaerobic Toe [[id number]] (Abnormal) Collected: 05/14/24 1133 Lab Status: Preliminary result Specimen: Toe Updated: 05/15/24 1212 Tissue culture [[id number]] (Abnormal) Collected: 05/14/24 1133 Lab Status: Preliminary result Specimen: Toe Updated: 05/15/24 1212 Tissue Culture No growth to date. Gram Stain -- Few Neutrophils seen Rare Gram Positive Cocci in pairs seen Results called to and read back by Dr. Mihaela Galvan 05/14/24 14:57:00 Organism Gram Positive Cocci in pairs Anaerobic Culture [[id number]] Collected: 05/14/24 1133 Lab Status: Preliminary result Specimen: Toe Updated: 05/15/24 1124 Anaerobic Culture No anaerobic organisms isolated to date Blood culture [[id number]] Collected: 05/10/24 0232 Lab Status: Final result Specimen: Blood from Hand, Right Updated: 05/15/24 0701 Blood Culture No growth at 5 days. Skin/Superficial Wound Culture Toe [[id number]] (Abnormal) Collected: 05/10/24 0256 Lab Status: Final [...] follow. Please page ID Red team (pager [phone]) with questions or concerns. Emmanuel Corey, DO Internal Medicine PGY-2 Pager: [phone] Epic Chat 05/16/2024 Associated attestation - Rodriguez [...] Intake/Output Summary (Last 24 hours) at 05/16/2024 0689 Last data filed at 05/16/2024 0355 Gross [...] Component Value - Date/Time MRSA PCR Screen ([facility]/CGP/APD/NLH) [[id number]] Collected: 05/15/24 1615 Lab Status: Final result Specimen: Nasopharyngeal Swab Updated: 05/15/242012 MRSA Result Negative MRSA Interp -- Methicillin-resistant Staphylococcus aureus (MRSA) is NOT DETECTED The MRSA target DNA sequences (mec and SCC) were not detected within the acceptable ranges using the Xpert MRSA NxG on the GeneXpert Dx System ([employer]). This suggests the absence of MRSA in the patient specimen submitted for testing. This test is cleared by the U.S. Food and Drug Administration for clinical use and its performance characteristics have been verified by the Clinical Genomics and [facility] Technology Laboratory at [facility]. This result does not rule out the presence of any other organisms. Rare false negative results may occur if MRSA is present at low concentrations with much higher concentrations of other organisms including MRSE or S. aureus with an empty SCC cassette. Comment: [VERIFIED DATE]05.15.24 Verified By:Lupe Jensen (Electronic Signature) Tissue Culture, Aerobic & Anaerobic Toe [[id number]] (Abnormal) Collected: 05/14/241132 Lab Status: Preliminary result Specimen: Toe Updated: 05/15/24 1212 Tissue culture [[id number]] (Abnormal) Collected: 05/14/241132 Lab Status: Preliminary result Specimen: Toe Updated: 05/15/24 121 Tissue Culture No growth to date. Gram Stain -- Few Neutrophils seen Rare Gram Positive Cocci in pairs seen Results called to and read back by Dr. Mihaela Galvan 05/14/24 14:57:00 Organism Gram Positive Cocci in pairs Anaerobic Culture [[id number]] Collected: 05/14/24 113 Lab Status: Preliminary result Specimen: Toe Updated: 05/15/24 1124 Anaerobic Culture No anaerobic organisms isolated to date Blood culture [[id number]] Collected: 05/10/24 0232 Lab Status: Final result Specimen: Blood from Hand, Right Updated: 05/15/24 0701 Blood Culture No growth at 5 days. Skin/Superficial Wound Culture Toe [[id number]] (Abnormal) Collected: 05/10/24 0256 Lab Status: Final [...] PGY-1, Internal Medicine Red Team - Pager [phone] Associated attestation - Treva Diaz MD - [...] likely suture removal on 06/05/24. Please page [phone] with any questions or concerns. Activity: NWB until forefoot offloading shoe DVT prophylaxis: per primary, rec 30 days LVX or ASA81 BID Closure: Sutures (to be removed at Orthopaedic follow-up appointment) Dressing: bacitracin, xeroform, 4x4, kerlix, DEREK x 7 days Antibiotics: per primary Isra Rodriguez IV, DO 05/16/2024 Future Appointments Date Time Provider Department Center 06/05/2024 4:00 PM Elkin Garcia MD [facility] ORTH [address] [place] [address] * Mihaela Galvan MD - 05/15/2024 6:41 [...] Procedure Component Value - Date/Time Tissue culture [[id number]] (Abnormal) Collected: 05/14/24 1133 Lab Status: Preliminary result Specimen: Toe Updated: 05/14/24 1459 Gram Stain -- Few Neutrophils seen Rare Gram Positive Cocci in pairs seen Results called to and read back by Dr. Mihaela Galvan 05/14/24 14:57:00 Organism Gram Positive Cocci in pairs Blood culture [[id number]] Collected: 05/10/24 0232 Lab Status: Preliminary result Specimen: Blood from Hand, Right Updated: 05/14/24 0701 Blood Culture No growth at 4 days. Skin/Superficial Wound Culture Toe [[id number]] (Abnormal) Collected: 05/10/24 0256 Lab Status: Final [...] PGY-1, Internal Medicine Red Team - Pager [phone] Associated attestation - Treva Diaz MD - [...] of two midnights or is on the [facility] inpatient only procedure list (status C) [...] Center 06/05/2024 4:00 PM Elkin Garcia MD [facility] ORTH 3C [facility] * Savannah Sy RN - 05/14/2024 1:45 [...] Center 06/05/2024 4:00 PM Elkin Garcia MD [facility] ORTH [address] [place] [address] * Mihaela Galvan MD - 05/14/2024 6:04 AM EDT [facility] Medicine - Red Team Inpatient Progress Note [...] PGY-1, Internal Medicine Red Team - Pager [phone] Associated attestation - Treva Diaz MD - [...] of two midnights or is on the [facility] inpatient only procedure list (status C) [...] OR for the above procedure. Please page [phone] if there are any concerns regarding OR [...] PGY-1, Internal Medicine Red Team - Pager [phone] Associated attestation - Treva Diaz MD - [...] of two midnights or is on the [facility] inpatient only procedure list (status C) due to: RLE cellulitis with concern forosteomyelitis. Continue on iv antibiotics and follow up with orthopedics regarding any surgical debridement . * Sarwat Marti - 05/12/2024 2:20 PM EDT Computer Clerk Encounter Note Patient Name: Jossy Shanks : [id number] MR#: [id number] Admit Date: 05/10/2024 2:12 AM Hospital Day 2 days Narrative:Visited to introduce and assess acceptance of Computer Clerk services. Patient was sleeping and I will [...] PGY-1, Internal Medicine Red Team - Pager [phone] Associated attestation - Treva Diaz MD - [...] of two midnights or is on the [facility] inpatient only procedure list (status C) due to: RLE cellulitis with concern forosteomyelitis. Continue on iv antibiotics and discuss with orthopedics regarding any urgent need for surgical debridement. * Rodriguez iTan MD - 05/11/2024 10:23 AM EDT MEDICINE PAGER [phone] - [facility] Daily Progress Note Admit Date: 05/10/2024 [...] controlled Afib (Xarelto, dilt, coreg), admitted to [facility] on 05/10/2024 with LE cellulitis 2/2 right [...] CHO counting level 2 Last BM documented: (RETAIL CENTER RECEPTIONIST) DVT Prophylaxis: Heparin DOAC Code Status: Attempt [...] of two midnights or is on the [facility] inpatient only procedure list (status C) [...] presented to a local emergency hedrick yesterday (tiy73nr birthday) due to ongoing wound issues and [...] kg/m??. Respiratory Support: Room air On exam, Anan is bearded, awake, alert, joking, somewhat indifferent to the state of his foot. B/l venous stasis changes, L>R LE edema which is mild. Cor reg, Lungs clear. Abdomen soft. Fluid Balance: Intake/Output Summary (Last 24 hours) at 05/10/2024 0936 Last data filed at 05/10/2024 0578 Gross per 24 hour Intake 20 ml [...] minimumof two midnights or is on the [facility] inpatient only procedure list (status C) [...] on Lasix, HTN on Losartan,who presented to [facility] for rt LE cellulitis, transferred to [facility] for septic shock. Interval Events: - lactate [...] 05/10/2024 2:37 AM) Result Value WORKSTATION ID [id number] Impression Bibasilar atelectasis. Thank you for letting us participate in the care of this patient. If you are a health care provider and have any questions regarding this report, please contact the number below. For patients who have questions please contact the health career services manager that requested your imaging first. foot pending [...] ppx: not indicated -DPOA: Primary Emergency Contact: Ted Bucioil, -Dispo: downgrade to hospital medicine if remains off pressors Graciela Gill MD PGY1 * Jayden Thomas MD - 05/10/2024 2:56 AM EDT [facility] TeleICU Initial Assessment Note I established audio/visual [...] hour(s)) Lactate, whole blood, send to lab ([facility]) Result Value Lactate WB 2.3 (H) Prothrombin [...] infection if clinical appearance is worrisome -Awaiting [facility] admission K+ level and Chem 7 -Would [...] Yes Allergies reviewed: Yes Source Note - VarnellAllyn PA - 05/21/2024 7:19 AM EDT Images [...] medical record. IR History: None listed at [facility] Anticoagulation/Antiplatelet: None listed Labs: Lab Results Component [...] 6.64) performed by Elkin Garcia MD at [facility] MAIN OR Social History and Habits: [...] indication: Osteomyelitis, central venous access required for flap lining binder antibiotic use IR workflow: Procedure request received through Interventional Radiology eDH order queue. There are no answered order specific questions. History of Present Illness: Per chart review, Jossy Shanks is a 69 y.o. male with PMH of CKD, DM,COPD, A.fib, admitted for RLE cellulitis and osteomyelitis s/p 2ng toe amputation requiring flap lining binder IV antibiotic administration who presents to Interventional [...] medical record. IR History: None listed at [facility] Anticoagulation/Antiplatelet: None listed Labs: Lab Results Component [...] Assessment: 69 y.o. male with OM requiring flap lining binder IV ABX presenting to Interventional Radiology for [...] 6.64) performed by Elkin Garcia MD at [facility] MAIN OR Social History and Habits: [...] amputation. Isra Rodriguez IV, DO Orthopaedic Surgery [facility] * Carlotta Davis MD - [...] on home oxygen, HFpEF, HTN, admitted to [facility] on 05/10/2024, now on Hospital Day #0, for RLE cellulitis SUBJECTIVE History of Present Illness: Per admitting provider Jossy Shanks is a 69 y.o. year old male with PMH significant for IDDM, Afib rate controlled, CKD (bsl cr 1.5), COPD not on home oxygen, HFpEF, HTN who presented to [facility] for rt LE cellulitis, transferred to [facility] for RLE cellulitis after trauma to his [...] knee. Fevers & chills for last 24hrs. [place] lightheaded, weak, & couldn't get out of [...] prior to OSH departure. On arrival to [facility]: HR 96, o2 sat mid 90s on [...] limbs -chronic Motor Exam: Upper Limb Bilateral: Yarn Examiner Strength 5/5 Wrist Flexion/Extension 5/5 Elbow Flexion/Extension [...] 196 ANIONGAP 12 12 Recent Labs 05/10/24 0605/10/24219 CALCIUM 8.6 8.5 MAGNESIUM -- 0.85 PHOS 5.1* 4.6* LFT's: Recent Labs 05/10/24219 BILITOT 0.5 BILIDIR 0.2 ALBUMIN 3.3 ALKPHOS 42 ALT 19 AST 21 Coags: Recent Labs 05/10/24219 PT 27.9* INR 2.5 Recent Labs 05/10/24219 INR 2.5 Cardiac enzymes: Recent Labs 05/10/24 06 CK 58 Endocrine: No results for input(s): TSH, CORTISOL in the last 7068 hours. Invalid input(s): ILPBCRWNSWS2O Recent Labs 05/10/24219 HA1C 5.9* Lipids: Heme: No results for input(s): LDH, HAPTOGLOBIN, URICACID in the last 168 hours. ABG (Arterial Blood Gas): No results found for: PHART, PO2ART, GMF9XKO, QHZ0EWO VBG (Venous Blood Gas): No results for input(s): PHVEN, XYZ1OKZ, PO2VEN, UFV4CCI, BEVEN, RVX4KBA in the last 72hours. EKG: No results [...] 05/10/2024 2:37 AM) Result Value WORKSTATION ID [id number] Impression Bibasilar atelectasis. Thank you for letting us participate in the care of this patient. If you are a health care provider and have any questions regarding this report, please contact the number below. For patients who have questions please contact the health career services manager that requested your imaging first. Foot wwo Contrast Right (Exam End: 05/10/2024 5:51 AM) Result Value WORKSTATION ID [id number] Impression 1. Soft tissue irregularity of the [...] who have questions please contact the health career services manager that requested your imaging first. Medications: Scheduled: [...] controlled Afib (Xarelto, dilt, coreg), admitted to [facility] on 05/10/2024, now on Hospital Day #0, [...] Internal Medicine PGY2 Medicine Team: Red, Pager #[phone] Associated attestation - Treva Diaz MD - [...] home oxygen, HFpEF, HTN who presented to [facility] for rt LE cellulitis, transferred to [facility] for septic shock. Reports end of March [...] knee. Fevers & chills for last 24hrs. [place] lightheaded, weak, & couldn't get out of [...] prior to OSH departure. On arrival to [facility]: HR 96, o2 sat mid 90s on [...] mobilizes w/out assistance. Darion Morgan is DPOA; [phone] Physical Exam: Vitals: Last value Range last [...] Anita Camacho MD Internal Medicine, PGY2 05/10/2024 [facility] Pager #[phone] documented in this encounter Procedure Notes * Juan José Flowers MD - 05/21/2024 11:49 AM EDT IR PROCEDURE NOTE Procedure: Tunneled central venous catheter placement. Indication for Procedure: Per Allyn MIMS, Jossy Shanks is a 69 y.o. male with PMH of CKD, DM, COPD, A.fib, admitted for RLE cellulitis andosteomyelitis s/p 2ng toe amputation requiring fdc IV [...] & Follow-up Care: Contact information for follow-up [facility] [address] [place] [address] Transportation: family or friend will provide Wheelchair [...] Payor: [facility] MANAGED MEDICARE / Plan: [facility] MANAGED MEDICARE COMPLETE / Product Type: *No Product type* / Secondary Insurance: N/A Prescription Coverage: Yes This plan was formulated with input from patient and team. All are in agreement with plan. Shirley Samuel RN CM Phlebotomy Director- Medicine Office of Care Management Ext: [phone] Pager: [phone] * Plan of Care - Juan José [...] and were able to stop the bleeding. Piano Sounding Board Matcher carolyn a hemoglobin when patient got back [...] Operative Note Patient Name: Jossy Shanks : [id number] MR#: [id number] Case Date: 05/22/2024 Surgeon: Surgeons and Role: [...] Jossy Spivey Rimma : 1955 HPI: Jossy Allyssa Shanks 69 y.o. male with past medical history [...] Access Non-Dialysis 05/21/2024 Juan José Flowers MD [facility] INTERVENTIONL RAD PRO AMPUTATION METATARSAL+TOE, SINGLE Right 05/14/2024 AMPUTATION, TRANSMETATARSAL TOE, ONE TOE (WRVU 6.64) performed by Elkin Garcia MD at [facility] MAIN OR SOCIAL HX: Social History [...] who have questions, please contact the health career services manager that requested your imaging first. [...] who have questions please contact the health career services manager that requested your imaging first. Chest One View Final Result Bibasilar atelectasis. Thank you for letting us participate in the care of this patient. If you are a health care provider and have any questions regarding this report, please contact the number below. For patients who have questions please contact the health career services manager that requested your imaging first. SCOPY: Reports and images personally reviewed in eDH OSH RECORDS: Obtained and personally reviewed ASSESSMENT & PLAN: 69 y.o. male with past medical history of H of HTN, HFpEF, CKD (bsl Cr ~1.5), [...] anticoagulation and significant anemia. Tl Steele MD [facility] Gastroenterology * Plan of Care - Pretty [...] Pain Flowsheets (Taken 05/20/2024802) Pain Management Interventions: zsyvln-vbq-pjmae dosing utilized breathing exercises care clustered diversional [...] Physical Therapy Recommendation: swing bed rehabilitation facility, fpc facility with to be determined Last Occupational Therapy Recommendation: fpc facility, swing bed rehabilitation facility with to [...] to: discuss discharge planning needs. provide the [facility], Office of Care Management letter from the Flattening Machine Operator pertaining to rehab referrals. provide a letter describing our affiliations within the [facility] and educate about their right to choose where referrals are sent. provide the CMS Star Quality Rating handout. review the different levels of rehab including SNF, swing, and acute. provide a list of facilities within their preferred geographic area. request that they provide at least three choices for referral. They have requested referrals to: [facility] ([facility]) [address] [place] [address] [facility] [address] [place] [place] [address] -OFFERED BED, PENDING INSURANCE AUTHORIZATION 05/20 [address] [facility] [address] [place] [address] [facility] [address] [place] [address] [facility]) [address] [place] [address] (Accepts pts only after exhausting all other local SNF options) Does patient have COVID vaccine card: Yes; Copy obtained: No Note routed to a Government Clerk who will communicate referrals to facilities and provide any required information. Transportation: family or friend will provide Barriers to discharge: Discharge planning Plan going forward: Referrals routed for SNF/Swing. Care Management will continue to follow and assist with discharge planning and coordination of care as indicated. Anticipated Date of Discharge: 05/21/2024 Shirley Samuel RN CM Phlebotomy Director- Medicine Office of Care Management Ext: [phone] Pager: [phone] * Plan of Care - Pretty Ramirez [...] shock at his time of transfer to [facility]. Creatinine on admission was 3.94 [...] 6.64) performed by Elkin Garcia MD at [facility] MAIN OR insulin glargine-ygfn (Semglee) (100 [...] (Interventions Implemented as Appropriate) * Plan of Andrey - Evelyn Prakash RN - 05/18/2024 7:39 [...] Flowsheets (Taken 05/18/2024 0838) Pain Management Interventions: kkkbet-zvp-fofwg dosing utilized care clustered diversional activity provided [...] television Taken 05/15/2024 1825 Pain Management Interventions: ghswcw-lyh-evcjt dosing utilized position adjusted pillow support provided [...] smartphone Taken 05/15/2024 1825 Pain Management Interventions: stdhjs-dca-dvybv dosing utilized position adjusted pillow support provided [...] 6.64) performed by Elkin Garcia MD at [facility] MAIN OR Active Non-Hospital Problems Diagnosis [...] Perception: WNL / WFL and corrective lenses aircraft electrical systems specialist Communication: WFL Range of motion, strength, coordination: [...] planning. Total Minutes, Occupational Therapy: 90 (evaluation ([id number])) 2017 OT Evaluation Code Rationale: Diagnosis & [...] and measurable assessment of functional outcome. Pager: [phone] Penny Rodriguez OT 05/16/2024 Occupational Therapy Rehabilitation [...] have. Alternately, during off-hours you may call [phone] to contact a pharmacist. * Consult Note [...] (Interventions Implemented as Appropriate) 05/15/2024 1128 by OlidnaEvelyn montez RN Outcome: Ongoing (Interventions Implemented as Appropriate) [...] Appropriate) Intervention: Optimize Glycemic Control Flowsheets (Taken 05/15/2024 07) Glycemic Management: blood glucose monitored insulin dose [...] provided Intervention: Promote Injury-Free Environment Flowsheets (Taken 05/15/2024 07) Safety Promotion/Fall Prevention: [...] briefly on vasopressors, and then transferred to [facility] for further management. 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 05/14. Reports a hx of cellulitis in the Left leg back in 2009 for which he states he did a course of 6 week son IV abx from [facility]. Has gotten cellulitis about half a [...] Procedure Component Value - Date/Time Blood culture [[id number]] Collected: 05/10/24 0232 Lab Status: Final result Specimen: Blood from Hand, Right Updated: 05/15/24 0701 Blood Culture No growth at 5 days. Tissue culture [[id number]] (Abnormal) Collected: 05/14/24 1133 Lab Status: Preliminary result Specimen: Toe Updated: 05/14/24 1459 Gram Stain -- Few Neutrophils seen Rare Gram Positive Cocci in pairs seen Results called to and read back by Dr. Mihaela Galvan 05/14/24 14:57:00 Organism Gram Positive Cocci in pairs Skin/Superficial Wound Culture Toe [[id number]] (Abnormal) Collected: 05/10/24 0256 Lab Status: Final [...] follow. Please page ID Red team (pager [phone]) with questions or concerns. Emmanuel Corey, DO Internal Medicine PGY-2 Pager: [phone] Epic Chat 05/15/2024 Associated attestation - Rodriguez [...] Home Health Services: IV Therapy Agency Referrals: [place] [address] or Home Care Orders: 1. IV Antibiotics: [...] to discharge: Discharge planning Plan going forward: [facility] routed and pended. [facility]. Care Management will continue to follow and assist with discharge planning and coordination of care as indicated. Anticipated Date of Discharge: 05/19/2024 Shirley Samuel RN CM Phlebotomy Director- Medicine Office of Care Management Ext: [phone] Pager: [phone] * Plan of Care - YgChristine lloyd [...] Pt in agreement. Pt POC BG @ 1685 223. Pt denies pain. Pt resting in [...] Operative Note Patient Name: Jossy Shanks : [id number] MR#: [id number] Case Date: 05/14/2024 Surgeon: Surgeons and Role: [...] Garcia MD - 05/14/2024 11:16 AM EDT [facility] Operative Note Patient Name: Jossy Shanks : [id number] MR#: [id number] Case Date: 05/14/2024 Surgeon: Surgeons and Role: [...] 05/14/2024 * Consult Note - Hakeem Villa [facility] - 05/14/2024 7:15 AM EDT [facility] Pharmacokinetics Note Drug: Vancomycin Pharmacokinetic target: AUC24 (range) 400-600 mg/L.hr Jossy Shanks is a 69-year-old male receiving intermittent Vancomycin doses Recent measured serum creatinine values: 05/14/2024 05:01 1.56 mg/dL 05/13/2024 05:29 1.53 mg/dL 05/12/2024 04:45 2.03 mg/dL Assessment: Analysis of the most recent level(s) using KambitX gives the following patient-specific pharmacokinetic parameters: CL: [...] serum creatinine, CrCl, AUC, and trough Hakeem Adlich, PharmD * Plan of Care - Pretty [...] Appropriate) Goal: Optimal Comfort and Wellbeing 05/14/2024 045 by Pretty Ramirez RN Outcome: [...] controlled Afib (Xarelto, dilt, coreg), admitted to [facility] on 05/10/2024 with LE cellulitis 2/2 right foot trauma. Reason for intervention: Diet order question - what type of carb control diet does pt need? Nutrition Recommendations: Carb control level 3 diet Monitor po intake Monitor blood glucose levels Monitor weight trends I was able to discuss plan with provider Medicine Pager Red [phone] . Nutrition consult received regarding what type of carb control diet pt needs. Estimated nutrition needs based on ideal body weight of 89kg: Calories: 4945-5946 calories (20-25kcal/kg) Protein: 89-107g (1-1.2g/kg) Nutrition to [...] border dressing. (Melgisorb Ag 6x6 PS # [id number]) (Melgisorb Ag 4x4 PS # [id number]) Sacrum/ischium: open to air, utilize Z-guard if patient begins to have breakdown Supplies left at the bedside: 1 sheet of Melgisorb Ag, wound cleanser Wound Care will complete the consult at this time. If there are further issues please re-consult via eD-H. Discussed plan with: RN: Don Please contact Keeley Russell RN on eDH secure chat or the wound care team on pager [phone] with skin and wound care concerns or questions. * Plan of Care - Thomas Mcgraht RN - 05/12/2024 11:23 AM EDT Problem: [...] Son CONRADO Any patient receiving care in [place] must abide by [place] law. The hierarchy [...] DME: none Home Address listed as: [address] [place] [address] Pt is not currently residing here. Current address is as below: [place] [id number] [place] [address] Social & Family Supports: All names listed below confirmed with patient as current and correct Extended Emergency Contact Information Primary Emergency Contact: Eddie Shanks Mobile Relation: Son/Nubewgzr-dd-yfn Secondary Emergency Contact: Gifty Bucio [facility] Relation: Mother Current Care Provided by: self [...] Pertinent/Service Specific Information: Health/Prescription Coverage: Primary Insurance: [employer] [facility] OOS Payor: [facility] OOS / Plan: [facility] OOS PPO / Product Type: *No Product type* / Secondary Insurance: N/A ; Prescription Coverage: Yes Preferred Pharmacy: [id number] - [place], [place] - [address] [place] [address] AT [address] [facility] [address] [facility] [id number] Primary Care Provider listed: None None Pt does have PCP in [facility] Patient/Caregiver Goals of Treatment: Potential Needs for Transition of Care: none, home health care Agency Referrals: I have met with the patient to: discuss discharge planning needs. provide the [facility], Office of Care Management letter from the Flattening Machine Operator pertaining to rehab referrals. provide a letter describing our affiliations within the [facility] and educate about their right to choose where referrals are sent. provide a list of Home Health Agencies / Durable Medical Equipment vendors which serve their preferred geographic area. provided patient with [facility] Star Quality Rating handout. They have requested referrals to: [facility] [address] [place] [address] Note routed to a Government Clerk who will communicate referrals to facilities and [...] wait list for housing (an apartment) in [place], [place]; ETA for move-in is 4-8weeks. He does not feel that his local family members would be able to house him in the interim andexpresses that he is comfortable in his camper, which has amenities. He is fully independent at baseline but has used [facility] health in the past; a [...] Clinical Pharmacist Note - VancFD Jossy Shanks [id number] 1955 Jossy Shanks is a 69 y.o. [...] Alternately, during off-hours (-) you may call [phone] to contact a pharmacist. Rodriguez Sinclair RPH [...] intact shoulder abduction, elbow flexion/extension, wrist flexion/extension, field laborer, EPL, AIN, IO Brisk capillary refill distally [...] intact shoulder abduction, elbow flexion/extension, wrist flexion/extension, field laborer, EPL, AIN, IO Brisk capillary refill distally [...] changes develop in his course. Please page [phone] following completion of requestedimaging and studies. - Activity: no restrictions at this time - DVT prophylaxis: per primary; recommend lovenox 30 mg BID - Antibiotics: per ID - Imaging / studies needed: MRI wwo contrast, ABIs, ESR, CRP Tyrone Rehman MD Orthopaedic Surgery, 1825 documented in this encounter Plan of Treatment [...] 05/14/2024 11:32 AM EDT Amputation Metatarsal+Toe, Single ([id number]) 05/14/2024 10:37 AM EDT right second toe [...] SCREEN (MC/CGP/TARA) STAT 05/10/2024 2:20 AM EDT PHOSPHORUS STAT 05/10/2024 2:20 AM EDT MAGNESIUM STAT 05/10/2024 2:20 AM EDT HEMOGLOBIN A1C Routine 05/10/2024 2:20 AM EDT HEPATIC FUNCTION PANEL Routine 2:20 AM EDT BASIC METABOLIC PANEL STAT 05/10/2024 2:20 AM EDT documented in this encounter Results * POC, GLUCOSE (05/23/2024 12:32 PM EDT) Glucometer, POC 137 65 - 199 mg/dL 05/23/2024 12:32 PM EDT [facility] Comment:Supplemental ranges: <140 mg/dL before meals <180 mg/dL all other times of the day. Blood CAPILLARY BLOOD / Unknown 05/23/2024 12:32 PM EDT 05/23/2024 12:32 PM EDT Saba Spears MD POINT OF CARE TEST ORDERABLES Performing Organization Address City/State/[facility] Co de Phone Number [facility] [address] * (ABNORMAL) Basic Metabolic Panel (05/23/2024 9:46 AM EDT) Glucose 142 65 - 199 mg/dL 05/23/2024 11:27 AM EDT [facility] Comment:Glucose Concentratio n >=200 mg/dL plus symptoms is consistent with Diabetes Mellitus. Blood Urea Nitrogen 83(H) 10 - 20 mg/dL 05/23/2024 11:27 AM EDT [facility] Creatinine 2.64(H) 0.80 - 1.50 mg/dL 05/23/2024 11:27 AM EDT [facility] Sodium 140 135 - 145 mMol/L 05/23/2024 11:27 AM EDT [facility] Potassium 5.2(H) 3.5 - 5.0 mMol/L 05/23/2024 11:27 AM EDT [facility] Chloride 111(H) 98 - 107 mMol/L 05/23/2024 11:27 AM EDT [facility] Carbon Dioxide 20(L) 22 - 31 mMol/L 05/23/2024 11:27 AM EDT [facility] Anion Gap 9 5 - 15 mMol/L 05/23/2024 11:27 AM EDT [facility] Calcium 9.3 8.5 - 10.5 mg/dL 05/23/2024 11:27 AM EDT [facility] Est Glomerular Filtration Rate - Male 25 mL/min/1. 73 m?? 05/23/2024 11:27 AM EDT [facility] Comment: This patient's estimated GFR [...] EDT Saba Spears MD CHEMISTRY ORDERABLE S [facility] [place] [address] * (ABNORMAL) CBC (with Diff) (05/23/2024 9:46 AM EDT) White Blood Cell 12.66(H) 4.00 - 9.50 x10(3)/mc L 05/23/2024 10:52 AM EDT [facility] Red Blood Cell 2.56(L) 4.58 - 5.54 x10(6)/mc L 05/23/2024 10:52 AM EDT [facility] Hemoglobin 7.7(L) 13.7 - 16.5 g/dL 05/23/2024 10:52 AM EDT [facility] Hematocrit 24.3(L) 40.5 - 48.5 % 05/23/2024 10:52 AM [facility] Mean Cell Volume 94.9(H) 82.9 - 93.1 fL 05/23/2024 10:52 AM [facility] Mean Cell Hemoglobin 30.1 27.5 - 32.1 pg 05/23/2024 10:52 AM [facility] Mean Cell Hemoglobin Concentration 31.7(L) 32.0 - 35.7 g/dL 05/23/2024 10:52 AM [facility] Platelet 370(H) 145 - 357 x10(3)/mc L 05/23/2024 10:52 AM [facility] Mean Platelet Volume 11.6 7.6 - 12.9 fL 05/23/2024 10:52 AM [facility] RDW Standard Deviation 57.1(H) 36.0 - 45.0 fL 05/23/2024 10:52 AM [facility] RDW coefficient of variation 16.9(H) 11.4 - 13.8 % 05/23/2024 10:52 AM [facility] NRBC% auto 0.0 % 05/23/2024 10:52 AM [facility] NRBC Absolute 0.00 0.00 - 0.00 x10(3)/mc L 05/23/2024 10:52 AM [facility] Neutrophil % 81.6 % 05/23/2024 10:52 AM [facility] Neutrophil Absolute (ANC) - Automated 10.34(H) 1.70 - 6.10 x10(3)/mc L 05/23/2024 10:52 AM [facility] Lymph % 5.1 % 05/23/2024 10:52 AM [facility] Lymph Absolute 0.64(L) 0.90 - 3.20 x10(3)/mc L 05/23/2024 10:52 AM [facility] Monocyte % 10.7 % 05/23/2024 10:52 AM EDT [facility] Monocyte Absolute 1.35(H) 0.30 - 0.90 x10(3)/mc L 05/23/2024 10:52 AM EDT [facility] Eos % 1.7 % 05/23/2024 10:52 AM EDT [facility] Eos Absolute 0.22 0.00 - 0.40 x10(3)/mc L 05/23/2024 10:52 AM EDT [facility] Basophil % 0.3 % 05/23/2024 10:52 AM EDT [facility] Baso Absolute 0.04 0.00 - 0.10 x10(3)/mc L 05/23/2024 10:52 AM EDT [facility] Immature Gran % 0.6 % 10:52 AM EDT [facility] Immature Gran Absolute 0.07(H) 0.00 - 0.04 x10(3)/mc L 05/23/2024 10:52 AM EDT [facility] Blood VENOUS BLOOD SPECIMEN / Unknown IP Care Team Draw / Unknown 05/23/2024 9:46 AM EDT 05/23/2024 10:01 AM EDT Saba Spears MD HEMATOLOGY ORDERABL ES [facility] [address] * POC, GLUCOSE (05/23/2024 7:44 AM EDT) [facility] Signature Glucometer, POC 127 65 - 199 mg/dL 05/23/2024 7:44 AM EDT [facility] Comment:Supplemental ranges: <140 mg/dL before meals <180 mg/dL all other times of the day. Blood CAPILLARY BLOOD / Unknown 05/23/2024 7:44 AM EDT 05/23/2024 7:45 AM EDT Saba Spears MD POINT OF CARE TEST ORDERABLES Performing Organization Address City/[facility]/ZIP Co de Phone Number [facility] [address] * Prepare RBC (05/23/2024 3:49 AM EDT) Status Information Transfused [facility] Product Identification RBC [facility] Unit [facility] [id number] [facility] Product Code [id number] [facility] Unit Blood Type OPOS [facility] Specimen Expiration Date [id number] [facility] Volulme 350 [facility] Issue Date / Time [id number] [facility] Blood 05/22/2024 12: 42 PM EDT Saba Spears MD BLOOD BANK PRODUCT ORDERABLES Performing Organization Address [facility] Co de Phone Number [facility] [place] [address] * POC, GLUCOSE (05/23/2024 3:49 AM EDT) Glucometer, POC 152 65 - 199 mg/dL 05/23/2024 3:49 AM EDT [facility] Comment:Supplemental ranges: <140 mg/dL before meals <180 mg/dL all other times of the day. Blood CAPILLARY BLOOD / Unknown 05/23/2024 3:49 AM EDT 05/23/2024 3:49 AM EDT Saba Spears MD POINT OF CARE TEST ORDERABLES Performing Organization Address City/[facility]/ZIP Co de Phone Number [facility] [place] [address] * POC, GLUCOSE (05/23/2024 1:26 AM EDT) Glucometer, POC 138 65 - 199 mg/dL 05/23/2024 1:26 AM EDT [facility] Comment:Supplemental ranges: <140 mg/dL before meals <180 mg/dL all other times of the day. Blood CAPILLARY BLOOD / Unknown 05/23/2024 1:26 AM EDT 05/23/2024 1:26 AM EDT Saba Spears MD POINT OF CARE TEST ORDERABLES Performing Organization Address [facility]/ZIP Co de Phone Number [facility] [place] [address] * (ABNORMAL) Scan, Peripheral Blood (05/23/2024 1:19 AM EDT) RBC Morphology Abnormal 05/23/2024 3:44 AM EDT [facility] Platelet Estimate Increased(A) Normal 05/23/2024 3:44 AM EDT [facility] Ovalocytes 1-5 /HPF 05/23/2024 3:44 AM EDT [facility] Sofía cells 1-5 /HPF 05/23/2024 3:44 AM EDT [facility] Blood VENOUS BLOOD SPECIMEN / Unknown IP Care Team Draw / Unknown 05/23/2024 1:19 AM EDT 05/23/2024 2:05 AM EDT Mary De La Fuente MD HEMATOLOGY ORDERAB LES Performing Organization Address [facility] Co de Phone Number [facility] [address] * Magnesium (05/23/2024 1:19 AM EDT) Magnesium 0.86 0.69 - 1.07 mMol/L 05/23/2024 2:40 AM EDT [facility] Blood VENOUS BLOOD SPECIMEN / Unknown IP Care Team Draw / Unknown 05/23/2024 1:19 AM EDT 05/23/2024 2:05 AM EDT Mary De La Fuente MD CHEMISTRY ORDERABL ES Performing Organization Address City/[facility]/ZIP Co de Phone Number [facility] [place] [address] * (ABNORMAL) Phosphorus (05/23/2024 1:19 AM EDT) Phosphorus 5.8(H) 2.5 - 4.5 mg/dL 05/23/2024 2:40 AM EDT [facility] Blood VENOUS BLOOD SPECIMEN / Unknown IP Care Team Draw / Unknown 05/23/2024 1:19 AM EDT 05/23/2024 2:05 AM EDT Mary De La Fuente MD CHEMISTRY ORDERABL ES [facility] [address] * (ABNORMAL) Basic Metabolic Panel (non-fasting) (05/23/2024 1:19 AM EDT) Glucose 158 65 - 199 mg/dL 05/23/2024 3:34 AM EDT [facility] Comment:Glucose Concentratio n >=200 mg/dL plus symptoms is consistent with Diabetes Mellitus. Blood Urea Nitrogen 85(H) 10 - 20 mg/dL 05/23/2024 3:34 AM [facility] Creatinine 2.70(H) 0.80 - 1.50 mg/dL 05/23/2024 3:[facility] Sodium 139 135 - 145 mMol/L 05/23/2024 3:34 AM [facility] Potassium 4.9 3.5 - 5.0 mMol/L 05/23/2024 3:34 [facility] Chloride 108(H) 98 - 107 mMol/L 05/23/2024 3:34 AM [facility] Carbon Dioxide 20(L) 22 - 31 mMol/L 05/23/2024 3:34 AM [facility] Anion Gap 11 5 - 15 mMol/L 05/23/2024 3:34 AM [facility] Calcium 9.1 8.5 - 10.5 mg/dL 05/23/2024 3:34 AM EDT [facility] Est Glomerular Filtration Rate - Male 25 mL/min/1. 73 m?? 05/23/2024 3:34 AM EDT [facility] Comment: This patient's estimated GFR [...] Foundation Fasting Status 05/23/2024 3:34 AM T [facility] Blood VENOUS BLOOD SPECIMEN / Unknown IP Care Team Draw / Unknown 05/23/2024 1:19 AM EDT 05/23/2024 2:05 AM EDT Mary De La Fuente MD CHEMISTRY ORDERABL ES [facility] [address] * (ABNORMAL) CBC (with Diff) (05/23/2024 1:19 AM EDT) White Blood Cell 12.66(H) 4.00 - 9.50 x10(3)/mc L 05/23/2024 3:44 AM EDT [facility] Red Blood Cell 2.61(L) 4.58 - 5.54 x10(6)/mc L 05/23/2024 3:44 AM EDT [facility] Hemoglobin 7.8(L) 13.7 - 16.5 g/dL 05/23/2024 3:44 AM EDT [facility] Hematocrit 24.3(L) 40.5 - 48.5 % 05/23/2024 3:44 AM EDT [facility] Mean Cell Volume 93.1 82.9 - 93.1 fL 05/23/2024 3:44 AM [facility] Mean Cell Hemoglobin 29.9 27.5 - 32.1 pg 05/23/2024 3:44 AM [facility] Mean Cell Hemoglobin Concentration 32.1 32.0 - 35.7 g/dL 05/23/2024 3:44 AM [facility] Platelet 381(H) 145 - 357 x10(3)/mc L 05/23/2024 3:44 AM [facility] Mean Platelet Volume 11.4 7.6 - 12.9 fL 05/23/2024 3:44 AM [facility] RDW Standard Deviation 55.1(H) 36.0 - 45.0 fL 05/23/2024 3:44 AM [facility] RDW coefficient of variation 16.5(H) 11.4 - 13.8 % 05/23/2024 3:44 AM [facility] NRBC% auto 0.0 % 05/23/2024 3:44 AM [facility] NRBC Absolute 0.00 0.00 - 0.00 x10(3)/mc L 05/23/2024 3:44 AM [facility] Neutrophil % 79.4 % 05/23/2024 3:44 AM [facility] Comment:This is an appended report. These results have been appended to a previously preliminary verified report. Neutrophil Absolute (ANC) - Automated 10.06(H) 1.70 - 6.10 x10(3)/mc L 05/23/2024 3:44 AM [facility] Comment:This is an appended report. These results have been appended to a previously preliminary verified report. Lymph % 5.8 % 05/23/2024 3:44 AM [facility] Comment:This is an appended report. These results have been appended to a previously preliminary verified report. Lymph Absolute 0.73(L) 0.90 - 3.20 x10(3)/mc L 05/23/2024 3:44 AM [facility] Comment:This is an appended report. These results have been appended to a previously preliminary verified report. Monocyte % 12.1 % 05/23/2024 3:44 AM [facility] Comment:This is an appended report. These results have been appended to a previously preliminary verified report. Monocyte Absolute 1.53(H) 0.30 - 0.90 x10(3)/mc L 05/23/2024 3:44 AM [facility] Comment:This is an appended report. These results have been appended to a previously preliminary verified report. Eos % 1.9 % 05/23/2024 3:44 AM [facility] Comment:This is an appended report. These results have been appended to a previously preliminary verified report. Eos Absolute 0.24 0.00 - 0.40 x10(3)/mc L 05/23/2024 3:44 AM [facility] Comment:This is an appended report. These results have been appended to a previously preliminary verified report. Basophil % 0.3 % 05/23/2024 3:44 AM [facility] Comment:This is an appended report. These results have been appended to a previously preliminary verified report. Baso Absolute 0.04 0.00 - 0.10 x10(3)/mc L 05/23/2024 3:44 AM [facility] Comment:This is an appended report. These results have been appended to a previously preliminary verified report. Immature Gran % 0.5 % 3:44 AM [facility] Comment:This is an appended report. These results have been appended to a previously preliminary verified report. Immature Gran Absolute 0.06(H) 0.00 - 0.04 x10(3)/mc L 05/23/2024 3:44 AM [facility] Comment:This is an appended report. These results have been appended to a previously preliminary verified report. Blood VENOUS BLOOD SPECIMEN / Unknown IP Care Team Draw / Unknown 05/23/2024 1:19 AM EDT 05/23/2024 2:05 AM EDT Mary De La Fuente MD HEMATOLOGY ORDERAB LES Performing Organization Address City/[facility]/ZIP Co de Phone Number [facility] [address] * POC, GLUCOSE (05/22/2024 8:21 PM EDT) Glucometer, POC 152 65 - 199 mg/dL 05/22/2024 8:21 PM EDT [facility] Comment:Supplemental ranges: <140 mg/dL before meals <180 mg/dL all other times of the day. Blood CAPILLARY BLOOD / Unknown 05/22/2024 8:21 PM EDT 05/22/2024 8:21 PM EDT Saba Spears MD POINT OF CARE TEST ORDERABLES Performing Organization Address [facility] Co de Phone Number [facility] [place] [address] * POC, GLUCOSE (05/22/2024 6:20 PM EDT) Glucometer, POC 130 65 - 199 mg/dL 05/22/2024 6:20 PM EDT [facility] Comment:Supplemental ranges: <140 mg/dL before meals <180 mg/dL all other times of the day. Blood CAPILLARY BLOOD / Unknown 05/22/2024 6:20 PM EDT 05/22/2024 6:21 PM EDT Saba Spears MD POINT OF CARE TEST ORDERABLES Performing Organization Address [facility] Co de Phone Number [facility] [address] * Transfuse RBC (05/22/2024 2:45 PM EDT) Saba Spears MD NURSING TREATMENT O RDERABLES - BLOOD ADMIN * UPPER GI ENDOSCOPY (05/22/2024 12:48 PM EDT) UPPER GI ENDOSCOPY [facility] Endoscopy ___ Procedure Date: 05/22/2024 12:48 PM ? Patient Name: Jossy Shanks ? N: [id number] ? Date of : 1955 ? Age: 69 ? Order #: [id number] ? Instrument Name: [id number] ? ___ Procedure: ? Upper GI endoscopy [...] personally performed the entire procedure. ? Jonn Rodriguez Rajesh, 05/22/2024 4:58:10 PM Number of Addenda: 0 Note Initiated On: 05/22/2024 12:48 PM [facility] 05/22/2024 12:4 8 PM EDT Unknown GENERAL SURGICAL ORD ERABLES [facility] * ABORH RECHECK (PATIENT HISTORY FOUND) (05/22/2024 11:18 AM EDT) ABORH Recheck Progress Complete 05/22/2024 1:01 PM EDT [facility] Blood VENOUS BLOOD SPECIMEN / Unknown IP Care Team Draw / Unknown 05/22/2024 11:18 AM EDT 05/22/2024 11:27 AM EDT Saba Spears MD BLOOD BANK LAB FADY GAO [facility] [place] [place] [address] * Type and screen ([facility]/BRINA/TARA) (05/22/2024 11:18 AM EDT) ABORH Type O POSITIVE 05/22/2024 12:31 PM EDT [facility] PATIENT HISTORY Found 05/22/2024 12:31 PM EDT [facility] Expires at [id number] on: 05-22-2024 05/22/2024 12:31 PM EDT [facility] ANTIBODY SCREEN AUTOMATED Negative 05/22/2024 12:31 PM EDT [facility] T&S only valid at [facility] 05/22/2024 12:31 PM EDT [facility] Blood VENOUS BLOOD SPECIMEN / Unknown IP Care Team Draw / Unknown 05/22/2024 11:18 AM EDT 05/22/2024 11:27 AM EDT Narrative [facility] - 05/22/2024 12:31 PM EDT This Type and Screen result is only valid at the [facility] Saba Spears MD BLOOD BANK LAB ORDE RABLES [facility] [place] [address] * (ABNORMAL) Hemoglobin and Hematocrit, blood (05/22/2024 11:18 AM EDT) Hemoglobin 6.9(L) 13.7 - 16.5 g/dL 05/22/2024 12:02 PM EDT [facility] Hematocrit 21.4(L) 40.5 - 48.5 % 05/22/2024 12:02 PM EDT [facility] Blood VENOUS BLOOD SPECIMEN / Unknown IP Care Team Draw / Unknown 05/22/2024 11:18 AM EDT 05/22/2024 11:36 AM EDT Saba Spears MD HEMATOLOGY ORDERABL ES Performing Organization Address [facility]/ZIP Co de Phone Number [facility] [address] * POC, GLUCOSE (05/22/2024 11:14 AM EDT) Glucometer, POC 126 65 - 199 mg/dL 05/22/2024 11:17 AM EDT [facility] Comment:Supplemental ranges: <140 mg/dL before meals <180 mg/dL all other times of the day. Blood CAPILLARY BLOOD / Unknown 05/22/2024 11:14 AM EDT 05/22/2024 11:18 AM EDT Saba Spears MD POINT OF CARE TEST ORDERABLES Performing Organization Address City/[facility]/ZIP Co de Phone Number [facility] [place] [address] * POC, GLUCOSE (05/22/2024 8:07 AM EDT) Glucometer, POC 132 65 - 199 mg/dL 05/22/2024 8:08 AM EDT [facility] Comment:Supplemental ranges: <140 mg/dL before meals <180 mg/dL all other times of the day. Blood CAPILLARY BLOOD / Unknown 05/22/2024 8:07 AM EDT 05/22/2024 8:08 AM EDT Saba Spears MD POINT OF CARE TEST ORDERABLES [facility] [address] * (ABNORMAL) Hepatic Function Panel (05/22/2024 5:18 AM EDT) Albumin 2.6(L) 3.2 - 5.2 g/dL 05/22/2024 9:50 AM EDT [facility] Aspartate Aminotransferase 18 <=39 unit/L 05/22/2024 9:50 AM EDT [facility] Alanine Aminotransferase 42 0 - 55 unit/L 05/22/2024 9:50 AM EDT [facility] Alkaline Phosphatase 84 40 - 130 unit/L 05/22/2024 9:50 AM EDT [facility] Bilirubin, Total <0.2 <=1.3 mg/dL 05/22/2024 9:50 AM EDT [facility] Bilirubin, Direct <0.2 0.0 - 0.3 mg/dL 05/22/2024 9:50 AM EDT [facility] Protein, Total 6.0(L) 6.1 - 8.0 g/dL 05/22/2024 9:50 AM EDT [facility] Blood VENOUS BLOOD SPECIMEN / Unknown IP Care Team Draw / Unknown 05/22/2024 5:18 AM EDT 05/22/2024 5:45 AM EDT Saba Spears MD CHEMISTRY ORDERABLE S Performing Organization Address City/[facility]/ZIP Co de Phone Number [facility] [address] * Magnesium (05/22/2024 5:18 AM EDT) Magnesium 0.93 0.69 - 1.07 mMol/L 05/22/2024 6:16 AM EDT [facility] Blood VENOUS BLOOD SPECIMEN / Unknown IP Care Team Draw / Unknown 05/22/2024 5:18 AM EDT 05/22/2024 5:45 AM EDT Mary De La Fuente MD CHEMISTRY ORDERABL ES Performing Organization Address [facility] Co de Phone Number [facility] [address] * (ABNORMAL) Phosphorus (05/22/2024 5:18 AM EDT) Phosphorus 5.8(H) 2.5 - 4.5 mg/dL 05/22/2024 6:16 AM EDT [facility] Blood VENOUS BLOOD SPECIMEN / Unknown IP Care Team Draw / Unknown 05/22/2024 5:18 AM EDT 05/22/2024 5:45 AM EDT Mary De La Fuente MD CHEMISTRY ORDERABL ES Performing Organization Address [facility]/ZIP Co de Phone Number [facility] [address] * (ABNORMAL) Basic Metabolic Panel (05/22/2024 5:18 AM EDT) Glucose 121 65 - 199 mg/dL 05/22/2024 6:16 AM EDT [facility] Comment:Glucose Concentratio n >=200 mg/dL plus symptoms is consistent with Diabetes Mellitus. Blood Urea Nitrogen 97(H) 10 - 20 mg/dL 05/22/2024 6:16 AM EDT [facility] Creatinine 2.77(H) 0.80 - 1.50 mg/dL 05/22/2024 6:16 AM EDT [facility] Sodium 138 135 - 145 mMol/L 05/22/2024 6:16 AM [facility] Potassium 5.1(H) 3.5 - 5.0 mMol/L 05/22/2024 6:16 AM [facility] Chloride 110(H) 98 - 107 mMol/L 05/22/2024 6:16 AM [facility] Carbon Dioxide 20(L) 22 - 31 mMol/L 05/22/2024 6:[facility] Anion Gap 8 5 - 15 mMol/L 05/22/2024 6:16 AM [facility] Calcium 9.4 8.5 - 10.5 mg/dL 05/22/2024 6:16 AM [facility] Est Glomerular Filtration Rate - Male 24 mL/min/1. 73 m?? 05/22/2024 6:16 AM [facility] Comment: This patient's estimated [...] Foundation Fasting Status No 05/22/2024 6:16 AM T [facility] Blood VENOUS BLOOD SPECIMEN / Unknown IP Care Team Draw / Unknown 05/22/2024 5:18 AM EDT 05/22/2024 5:45 AM EDT Mary De La Fuente MD CHEMISTRY ORDERABL ES [facility] [place] [address] * (ABNORMAL) CBC (with Diff) (05/22/2024 5:18 AM EDT) White Blood Cell 14.70(H) 4.00 - 9.50 x10(3)/mc L 05/22/2024 5:52 AM [facility] Red Blood Cell 2.37(L) 4.58 - 5.54 x10(6)/mc L 05/22/2024 5:52 AM [facility] Hemoglobin 7.2(L) 13.7 - 16.5 g/dL 05/22/2024 5:52 AM [facility] Hematocrit 22.1(L) 40.5 - 48.5 % 05/22/2024 5:52 AM [facility] Mean Cell Volume 93.2(H) 82.9 - 93.1 fL 05/22/2024 5:52 AM [facility] Mean Cell Hemoglobin 30.4 27.5 - 32.1 pg 05/22/2024 5:52 AM [facility] Mean Cell Hemoglobin Concentration 32.6 32.0 - 35.7 g/dL 05/22/2024 5:52 AM [facility] Platelet 366(H) 145 - 357 x10(3)/mc L 05/22/2024 5:52 AM [facility] Mean Platelet Volume 10.9 7.6 - 12.9 fL 05/22/2024 5:52 AM [facility] RDW Standard Deviation 54.6(H) 36.0 - 45.0 fL 05/22/2024 5:52 AM [facility] RDW coefficient of variation 16.3(H) 11.4 - 13.8 % 05/22/2024 5:52 AM [facility] NRBC% auto 0.0 % 05/22/2024 5:52 AM [facility] NRBC Absolute 0.00 0.00 - 0.00 x10(3)/mc L 05/22/2024 5:52 AM EDT [facility] Neutrophil % 83.2 % 05/22/2024 5:52 AM EDT [facility] Neutrophil Absolute (ANC) - Automated 12.22(H) 1.70 - 6.10 x10(3)/mc L 05/22/2024 5:52 AM EDT [facility] Lymph % 4.4 % 05/22/2024 5:52 AM EDT [facility] Lymph Absolute 0.65(L) 0.90 - 3.20 x10(3)/mc L 05/22/2024 5:52 AM EDT [facility] Monocyte % 9.7 % 05/22/2024 5:52 AM EDT [facility] Monocyte Absolute 1.43(H) 0.30 - 0.90 x10(3)/mc L 05/22/2024 5:52 AM EDT [facility] Eos % 1.9 % 05/22/2024 5:52 AM EDT [facility] Eos Absolute 0.28 0.00 - 0.40 x10(3)/mc L 05/22/2024 5:52 AM EDT [facility] Basophil % 0.2 % 05/22/2024 5:52 AM EDT [facility] Baso Absolute 0.03 0.00 - 0.10 x10(3)/mc L 05/22/2024 5:52 AM EDT [facility] Immature Gran % 0.6 % 5:52 AM EDT [facility] Immature Gran Absolute 0.09(H) 0.00 - 0.04 x10(3)/mc L 05/22/2024 5:52 AM EDT [facility] Blood VENOUS BLOOD SPECIMEN / Unknown IP Care Team Draw / Unknown 05/22/2024 5:18 AM EDT 05/22/2024 5:45 AM EDT Mary De La Fuente MD HEMATOLOGY ORDERAB LES [facility] [place] [address] * POC, GLUCOSE (05/22/2024 3:50 AM EDT) Glucometer, POC 140 65 - 199 mg/dL 05/22/2024 3:50 AM EDT [facility] Comment:Supplemental ranges: <140 mg/dL before meals <180 mg/dL all other times of the day. Blood CAPILLARY BLOOD / Unknown 05/22/2024 3:50 AM EDT 05/22/2024 3:50 AM EDT Saba Spears MD POINT OF CARE TEST ORDERABLES Performing Organization Address [facility] Co de Phone Number [facility] [address] * Scan Doc: Lab (05/22/2024 12:00 AM EDT) Narrative 05/22/2024 12:00 AM EDT Ordered by an unspecified provider. Scanning Provider MEDIA MGR SCAN EXT O RDR/RSLT * POC, GLUCOSE (05/21/2024 11:28 PM EDT) Glucometer, POC 174 65 - 199 mg/dL 05/21/2024 11:28 PM EDT [facility] Comment:Supplemental ranges: <140 mg/dL before meals <180 mg/dL all other times of the day. Blood CAPILLARY BLOOD / Unknown 05/21/2024 11:28 PM EDT 05/21/2024 11:28 PM EDT Saba Spears MD POINT OF CARE TEST ORDERABLES Performing Organization Address [facility] Co de Phone Number [facility] [place] [address] * POC, GLUCOSE (05/21/2024 7:49 PM EDT) Glucometer, POC 161 65 - 199 mg/dL 05/21/2024 7:49 PM EDT [facility] Comment:Supplemental ranges: <140 mg/dL before meals <180 mg/dL all other times of the day. Blood CAPILLARY BLOOD / Unknown 05/21/2024 7:49 PM EDT 05/21/2024 7:49 PM EDT Saba Spears MD POINT OF CARE TEST ORDERABLES Performing Organization Address City/[facility] Co de Phone Number [facility] [place] [address] * POC, GLUCOSE (05/21/2024 5:18 PM EDT) Glucometer, POC 152 65 - 199 mg/dL 05/21/2024 5:18 PM EDT [facility] Comment:Supplemental ranges: <140 mg/dL before meals <180 mg/dL all other times of the day. Blood CAPILLARY BLOOD / Unknown 05/21/2024 5:18 PM EDT 05/21/2024 5:18 PM EDT Saba Spears MD POINT OF CARE TEST ORDERABLES Performing Organization Address City/[facility] Co de Phone Number [facility] [place] [address] * (ABNORMAL) Hemogram (05/21/2024 3:00 PM EDT) White Blood Cell 14.25(H) 4.00 - 9.50 x10(3)/mc L 05/21/2024 3:41 PM EDT [facility] Red Blood Cell 2.61(L) 4.58 - 5.54 x10(6)/mc L 05/21/2024 3:41 PM EDT [facility] Hemoglobin 7.8(L) 13.7 - 16.5 g/dL 05/21/2024 3:41 PM EDT [facility] Hematocrit 24.5(L) 40.5 - 48.5 % 05/21/2024 3:41 PM EDT [facility] Mean Cell Volume 93.9(H) 82.9 - 93.1 fL 05/21/2024 3:41 PM EDT [facility] Mean Cell Hemoglobin 29.9 27.5 - 32.1 pg 05/21/2024 3:41 PM EDT [facility] Mean Cell Hemoglobin Concentration 31.8(L) 32.0 - 35.7 g/dL 05/21/2024 3:41 PM EDT [facility] Platelet 456(H) 145 - 357 x10(3)/mc L 05/21/2024 3:41 PM EDT [facility] Mean Platelet Volume 11.1 7.6 - 12.9 fL 05/21/2024 3:41 PM EDT [facility] RDW Standard Deviation 55.2(H) 36.0 - 45.0 fL 05/21/2024 3:41 PM EDT [facility] RDW coefficient of variation 16.1(H) 11.4 - 13.8 % 05/21/2024 3:41 PM EDT [facility] NRBC% auto 0.0 % 05/21/2024 3:41 PM EDT [facility] NRBC Absolute 0.00 0.00 - 0.00 x10(3)/mc L 05/21/2024 3:41 PM EDT [facility] Blood VENOUS BLOOD SPECIMEN / Unknown IP Care Team Draw / Unknown 05/21/2024 3:00 PM EDT 05/21/2024 3:36 PM EDT Saba Spears MD HEMATOLOGY ORDERABL ES [facility] [place] [address] * POC, GLUCOSE (05/21/2024 12:39 PM EDT) [facility] Signature Glucometer, POC 144 65 - 199 mg/dL 05/21/2024 12:39 PM EDT [facility] Comment:Supplemental ranges: <140 mg/dL before meals <180 mg/dL all other times of the day. Blood CAPILLARY BLOOD / Unknown 05/21/2024 12:39 PM EDT 05/21/2024 12:39 PM EDT Saba Spears MD POINT OF CARE TEST ORDERABLES [facility] [address] * IR Tunneled Central Venous Access Non-Dialysis [...] guidance and a 4Fr sheath placed. ??8 Citizen [place] CT injection compatible single lumen catheter was [...] - 199 mg/dL 05/21/2024 9:12 AM EDT [facility] Comment:Supplemental ranges: <140 mg/dL before meals <180 mg/dL all other times of the day. Blood CAPILLARY BLOOD / Unknown 05/21/2024 9:12 AM EDT 05/21/2024 9:12 AM EDT Saba Spears MD POINT OF CARE TEST ORDERABLES [facility] [address] * POC, GLUCOSE (05/21/2024 8:32 AM EDT) Glucometer, POC 135 65 - 199 mg/dL 05/21/2024 8:32 AM EDT [facility] Comment:Supplemental ranges: <140 mg/dL before meals <180 mg/dL all other times of the day. Blood CAPILLARY BLOOD / Unknown 05/21/2024 8:32 AM EDT 05/21/2024 8:32 AM EDT Saba Spears MD POINT OF CARE TEST ORDERABLES [facility] [place] [address] * (ABNORMAL) Hemogram (05/21/2024 8:27 AM EDT) White Blood Cell 15.77(H) 4.00 - 9.50 x10(3)/mc L 05/21/2024 8:54 AM EDT [facility] Red Blood Cell 2.47(L) 4.58 - 5.54 x10(6)/mc L 05/21/2024 8:54 AM EDT [facility] Hemoglobin 7.5(L) 13.7 - 16.5 g/dL 05/21/2024 8:54 AM EDT [facility] Hematocrit 23.0(L) 40.5 - 48.5 % 05/21/2024 8:54 AM EDT [facility] Mean Cell Volume 93.1 82.9 - 93.1 fL 05/21/2024 8:54 AM EDT [facility] Mean Cell Hemoglobin 30.4 27.5 - 32.1 pg 05/21/2024 8:54 AM EDT [facility] Mean Cell Hemoglobin Concentration 32.6 32.0 - 35.7 g/dL 05/21/2024 8:54 AM EDT [facility] Platelet 398(H) 145 - 357 x10(3)/mc L 05/21/2024 8:54 AM EDT [facility] Mean Platelet Volume 10.8 7.6 - 12.9 fL 05/21/2024 8:54 AM EDT [facility] RDW Standard Deviation 54.6(H) 36.0 - 45.0 fL 05/21/2024 8:54 AM EDT [facility] RDW coefficient of variation 16.1(H) 11.4 - 13.8 % 05/21/2024 8:54 AM EDT [facility] NRBC% auto 0.0 % 05/21/2024 8:54 AM EDT [facility] NRBC Absolute 0.00 0.00 - 0.00 x10(3)/mc L 05/21/2024 8:54 AM EDT [facility] Blood VENOUS BLOOD SPECIMEN / Unknown IP Care Team Draw / Unknown 05/21/2024 8:27 AM EDT 05/21/2024 8:42 AM EDT Saba Spears MD HEMATOLOGY ORDERABL ES Performing Organization Address City/[facility]/ZIP Co de Phone Number [facility] [place] [address] * (ABNORMAL) CRP, acute inflammation (05/21/2024 4:58 AM EDT) C-Reactive Protein 14.1(H) <=4.9 mg/L 05/21/2024 10:05 AM EDT [facility] Blood VENOUS BLOOD SPECIMEN / Unknown IP Care Team Draw / Unknown 05/21/2024 4:58 AM EDT 05/21/2024 5:17 AM EDT Saba Spears MD CHEMISTRY ORDERABLE S Performing Organization Address City/[facility]/ZIP Co de Phone Number [facility] [place] [address] * Magnesium (05/21/2024 4:58 AM EDT) Magnesium 0.99 0.69 - 1.07 mMol/L 05/21/2024 5:51 AM EDT [facility] Blood VENOUS BLOOD SPECIMEN / Unknown IP Care Team Draw / Unknown 05/21/2024 4:58 AM EDT 05/21/2024 5:17 AM EDT Mary De La Fuente MD CHEMISTRY ORDERABL ES Performing Organization Address City/[facility]/ZIP Co de Phone Number [facility] [place] [address] * (ABNORMAL) Phosphorus (05/21/2024 4:58 AM EDT) Pathologist [facility] Phosphorus 6.2(H) 2.5 - 4.5 mg/dL 05/21/2024 5:51 AM EDT [facility] Blood VENOUS BLOOD SPECIMEN / Unknown IP Care Team Draw / Unknown 05/21/2024 4:58 AM EDT 05/21/2024 5:17 AM EDT Mary De La Fuente MD CHEMISTRY ORDERABL ES [facility] [place] [address] * (ABNORMAL) Basic Metabolic Panel (05/21/2024 4:58 AM EDT) [facility] Glucose 151 65 - 199 mg/dL 05/21/2024 5:51 AM EDT [facility] Comment:Glucose Concentratio n >=200 mg/dL plus symptoms is consistent with Diabetes Mellitus. Blood Urea Nitrogen 110(H) 10 - 20 mg/dL 05/21/2024 5:51 AM EDT [facility] Creatinine 3.04(H) 0.80 - 1.50 mg/dL 05/21/2024 5:51 AM EDT [facility] Sodium 138 135 - 145 mMol/L 05/21/2024 5:51 AM EDT [facility] Potassium 5.1(H) 3.5 - 5.0 mMol/L 05/21/2024 5:51 AM EDT [facility] Chloride 111(H) 98 - 107 mMol/L 05/21/2024 5:51 AM EDT [facility] Carbon Dioxide 18(L) 22 - 31 mMol/L 05/21/2024 5:51 AM EDT [facility] Anion Gap 9 5 - 15 mMol/L 05/21/2024 5:[facility] Calcium 9.4 8.5 - 10.5 mg/dL 05/21/2024 5:51 AM EDT [facility] Est Glomerular Filtration Rate - Male 21 mL/min/1. 73 m?? 05/21/2024 5:51 AM EDT [facility] Comment: This patient's estimated GFR [...] Fasting Status No 05/21/2024 5:51 AM EDT [facility] Blood VENOUS BLOOD SPECIMEN / Unknown IP Care Team Draw / Unknown 05/21/2024 4:58 AM EDT 05/21/2024 5:17 AM EDT Mary De La Fuente MD CHEMISTRY ORDERABL ES [facility] [address] * (ABNORMAL) CBC (with Diff) (05/21/2024 4:58 AM EDT) White Blood Cell 14.49(H) 4.00 - 9.50 x10(3)/mc L 05/21/2024 5:28 AM EDT [facility] Red Blood Cell 2.54(L) 4.58 - 5.54 x10(6)/mc L 05/21/2024 5:28 AM EDT [facility] Hemoglobin 7.5(L) 13.7 - 16.5 g/dL 05/21/2024 5:28 AM EDT [facility] Hematocrit 23.6(L) 40.5 - 48.5 % 05/21/2024 5:28 AM EDT [facility] Mean Cell Volume 92.9 82.9 - 93.1 fL 05/21/2024 5:28 AM [facility] Mean Cell Hemoglobin 29.5 27.5 - 32.1 pg 05/21/2024 5:28 AM [facility] Mean Cell Hemoglobin Concentration 31.8(L) 32.0 - 35.7 g/dL 05/21/2024 5:28 AM [facility] Platelet 388(H) 145 - 357 x10(3)/mc L 05/21/2024 5:28 AM [facility] Mean Platelet Volume 10.8 7.6 - 12.9 fL 05/21/2024 5:28 AM [facility] RDW Standard Deviation 53.6(H) 36.0 - 45.0 fL 05/21/2024 5:28 AM [facility] RDW coefficient of variation 16.0(H) 11.4 - 13.8 % 05/21/2024 5:28 AM [facility] NRBC% auto 0.0 % 05/21/2024 5:28 AM [facility] NRBC Absolute 0.00 0.00 - 0.00 x10(3)/mc L 05/21/2024 5:28 AM [facility] Neutrophil % 81.6 % 05/21/2024 5:28 AM [facility] Neutrophil Absolute (ANC) - Automated 11.83(H) 1.70 - 6.10 x10(3)/mc L 05/21/2024 5:28 AM [facility] Lymph % 6.1 % 05/21/2024 5:28 AM [facility] Lymph Absolute 0.89(L) 0.90 - 3.20 x10(3)/mc L 05/21/2024 5:28 AM [facility] Monocyte % 9.4 % 05/21/2024 5:28 AM [facility] Monocyte Absolute 1.36(H) 0.30 - 0.90 x10(3)/mc L 05/21/2024 5:28 AM EDT [facility] Eos % 2.1 % 05/21/2024 5:28 AM EDT [facility] Eos Absolute 0.30 0.00 - 0.40 x10(3)/mc L 05/21/2024 5:28 AM EDT [facility] Basophil % 0.2 % 05/21/2024 5:28 AM EDT [facility] Baso Absolute 0.03 0.00 - 0.10 x10(3)/mc L 05/21/2024 5:28 AM EDT [facility] Immature Gran % 0.6 % 5:28 AM EDT [facility] Immature Gran Absolute 0.08(H) 0.00 - 0.04 x10(3)/mc L 05/21/2024 5:28 AM EDT [facility] Blood VENOUS BLOOD SPECIMEN / Unknown IP Care Team Draw / Unknown 05/21/2024 4:58 AM EDT 05/21/2024 5:17 AM EDT Mary De La Fuente MD HEMATOLOGY ORDERAB LES [facility] [place] [address] * POC, GLUCOSE (05/21/2024 3:45 AM EDT) [facility] Signature Glucometer, POC 155 65 - 199 mg/dL 05/21/2024 3:45 AM EDT [facility] Comment:Supplemental ranges: <140 mg/dL before meals <180 mg/dL all other times of the day. Blood CAPILLARY BLOOD / Unknown 05/21/2024 3:45 AM EDT 05/21/2024 3:46 AM EDT Saba Spears MD POINT OF CARE TEST ORDERABLES [facility] [address] * POC, GLUCOSE (05/20/2024 11:44 PM EDT) Glucometer, POC 132 65 - 199 mg/dL 05/20/2024 11:44 PM EDT [facility] Comment:Supplemental ranges: <140 mg/dL before meals <180 mg/dL all other times of the day. Blood CAPILLARY BLOOD / Unknown 05/20/2024 11:44 PM EDT 05/20/2024 11:44 PM EDT Saba Spears MD POINT OF CARE TEST ORDERABLES [facility] [place] [address] * POC, GLUCOSE (05/20/2024 7:24 PM EDT) Glucometer, POC 166 65 - 199 mg/dL 05/20/2024 7:24 PM EDT [facility] Comment:Supplemental ranges: <140 mg/dL before meals <180 mg/dL all other times of the day. Blood CAPILLARY BLOOD / Unknown 05/20/2024 7:24 PM EDT 05/20/2024 7:25 PM EDT Saba Spears MD POINT OF CARE TEST ORDERABLES [facility] [place] [address] * POC, GLUCOSE (05/20/2024 4:24 PM EDT) Glucometer, POC 170 65 - 199 mg/dL 05/20/2024 4:24 PM EDT [facility] Comment:Supplemental ranges: <140 mg/dL before meals <180 mg/dL all other times of the day. Blood CAPILLARY BLOOD / Unknown 05/20/2024 4:24 PM EDT 05/20/2024 4:24 PM EDT Saba Spears MD POINT OF CARE TEST ORDERABLES [facility] [address] * (ABNORMAL) Hemogram (05/20/2024 12:35 PM EDT) White Blood Cell 14.66(H) 4.00 - 9.50 x10(3)/mc L 05/20/2024 12:50 PM EDT [facility] Red Blood Cell 2.81(L) 4.58 - 5.54 x10(6)/mc L 05/20/2024 12:50 PM EDT [facility] Hemoglobin 8.4(L) 13.7 - 16.5 g/dL 05/20/2024 12:50 PM EDT [facility] Hematocrit 26.2(L) 40.5 - 48.5 % 05/20/2024 12:50 PM EDT [facility] Mean Cell Volume 93.2(H) 82.9 - 93.1 fL 05/20/2024 12:50 PM EDT [facility] Mean Cell Hemoglobin 29.9 27.5 - 32.1 pg 05/20/2024 12:50 PM EDT [facility] Mean Cell Hemoglobin Concentration 32.1 32.0 - 35.7 g/dL 05/20/2024 12:50 PM EDT [facility] Platelet 416(H) 145 - 357 x10(3)/mc L 05/20/2024 12:50 PM EDT [facility] Mean Platelet Volume 10.4 7.6 - 12.9 fL 05/20/2024 12:50 PM EDT [facility] RDW Standard Deviation 52.9(H) 36.0 - 45.0 fL 05/20/2024 12:50 PM EDT [facility] RDW coefficient of variation 15.6(H) 11.4 - 13.8 % 05/20/2024 12:50 PM EDT [facility] NRBC% auto 0.0 % 05/20/2024 12:50 PM EDT [facility] NRBC Absolute 0.00 0.00 - 0.00 x10(3)/mc L 05/20/2024 12:50 PM EDT [facility] Blood VENOUS BLOOD SPECIMEN / Unknown IP Care Team Draw / Unknown 05/20/2024 12:35 PM EDT 05/20/2024 12:43 PM EDT Saba Spears MD HEMATOLOGY ORDERABL ES Performing Organization Address City/[facility]/ZIP Co de Phone Number [facility] [place] [address] * POC, GLUCOSE (05/20/2024 11:52 AM EDT) Glucometer, POC 176 65 - 199 mg/dL 05/20/2024 11:52 AM EDT [facility] Comment:Supplemental ranges: <140 mg/dL before meals <180 mg/dL all other times of the day. Blood CAPILLARY BLOOD / Unknown 05/20/2024 11:52 AM EDT 05/20/2024 11:52 AM EDT Saba Spears MD POINT OF CARE TEST ORDERABLES Performing Organization Address City/[facility]/ZIP Co de Phone Number [facility] [place] [address] * US Retroperitoneal Complete (05/20/2024 10:36 AM EDT) WORKSTATION ID [id number] RAD Anatomical Region Laterality Modality Abdomen Ultrasound [...] who have questions, please contact the health career services manager that requested your imaging first. ?Teofilo Ruiz, Staff Physician Electronically Signed Final Report ?? 05/20/2024 11:36 am Narrative 05/20/2024 11:37 AM EDT Renal ? (Signed Final 05/20/2024 11:36 am) PATIENT INFO: ID #: ? [id number] ?: ??[birth year] (69 yrs)(M) Name: ? JOSSY Spivey KNAZAM ? Visit Date: 05/20/2024 10:34 am PERFORMED BY: Attending: ?Joseph SOTOMAYOR, Teofilo Flores Resident: ? Trinidad Light MD Performed By: ? Lulu Shin RDMS Referred By: ?SABA SPEARS Location: ? [facility] SERVICE(S) PROVIDED: URETRO - Retroperitoneal Complete - [id number] ? [id number] INDICATIONS: CKD, increase BUN TECHNIQUE/SCAN QUALITY: Scan [...] 05/20/2024 11:36 am) PATIENT INFO: ID #: [id number] : [birth year] (69 yrs)(M) Name: JOSSY SHANKS Visit Date: 05/20/2024 10:34 am PERFORMED BY: Attending: Teofilo Ruiz MD Resident: Trinidad Light MD Performed By: Lulu Shin RDMS Referred By: SABA SPEARS Location: [facility] SERVICE(S) PROVIDED: URETRO - Retroperitoneal Complete - [id number] INDICATIONS: CKD, increase BUN TECHNIQUE/SCAN QUALITY: Scan [...] who have questions, please contact the health career services manager that requested your imaging first. Teofilo Ruiz, Staff Physician Electronically Signed Final Report 05/20/2024 11:36 am Saba Spears MD IMG US GEN ORDERABL ES * POC, GLUCOSE (05/20/2024 8:03 AM EDT) [facility] Signature Glucometer, POC 180 65 - 199 mg/dL 05/20/2024 8:03 AM EDT [facility] Comment:Supplemental ranges: <140 mg/dL before meals <180 mg/dL all other times of the day. Blood CAPILLARY BLOOD / Unknown 05/20/2024 8:03 AM EDT 05/20/2024 8:03 AM EDT Saba Spears MD POINT OF CARE TEST ORDERABLES [facility] [address] * Magnesium (05/20/2024 4:27 AM EDT) Magnesium 0.99 0.69 - 1.07 mMol/L 05/20/2024 5:27 AM EDT [facility] Blood VENOUS BLOOD SPECIMEN / Unknown IP Care Team Draw / Unknown 05/20/2024 4:27 AM EDT 05/20/2024 4:52 AM EDT Mary De La Fuente MD CHEMISTRY ORDERABL ES Performing Organization Address [facility]/ZIP Co de Phone Number [facility] [place] [address] * (ABNORMAL) Phosphorus (05/20/2024 4:27 AM EDT) Phosphorus 5.1(H) 2.5 - 4.5 mg/dL 05/20/2024 5:27 AM EDT [facility] Blood VENOUS BLOOD SPECIMEN / Unknown IP Care Team Draw / Unknown 05/20/2024 4:27 AM EDT 05/20/2024 4:52 AM EDT Mary De La Fuente MD CHEMISTRY ORDERABL ES Performing Organization Address [facility] Co de Phone Number [facility] [place] [address] * (ABNORMAL) Basic Metabolic Panel (non-fasting) (05/20/2024 4:27 AM EDT) Glucose 173 65 - 199 mg/dL 05/20/2024 6:27 AM EDT [facility] Comment:Glucose Concentratio n >=200 mg/dL plus symptoms is consistent with Diabetes Mellitus. Blood Urea Nitrogen 121(H) 10 - 20 mg/dL 05/20/2024 6:27 AM EDT [facility] Creatinine 2.78(H) 0.80 - 1.50 mg/dL 05/20/2024 6:27 AM EDT [facility] Sodium 138 135 - 145 mMol/L 05/20/2024 6:27 AM EDT [facility] Potassium 5.4(H) 3.5 - 5.0 mMol/L 05/20/2024 6:27 AM EDT [facility] Chloride 109(H) 98 - 107 mMol/L 05/20/2024 6:27 AM EDT [facility] Carbon Dioxide 18(L) 22 - 31 mMol/L 05/20/2024 6:27 AM EDT [facility] Anion Gap 11 5 - 15 mMol/L 05/20/2024 6:27 AM T [facility] Calcium 9.4 8.5 - 10.5 mg/dL 05/20/2024 6:27 AM [facility] Est Glomerular Filtration Rate - Male 24 mL/min/1. 73 m?? 05/20/2024 6:27 AM [facility] Comment: This patient's estimated [...] Fasting Status No 05/20/2024 6:27 AM EDT [facility] Blood VENOUS BLOOD SPECIMEN / Unknown IP Care Team Draw / Unknown 05/20/2024 4:27 AM EDT 05/20/2024 4:52 AM EDT Mary De La Fuente MD CHEMISTRY ORDERABL ES [facility] [address] * (ABNORMAL) CBC (with Diff) (05/20/2024 4:27 AM EDT) White Blood Cell 15.20(H) 4.00 - 9.50 x10(3)/mc L 05/20/2024 5:32 AM [facility] Red Blood Cell 2.69(L) 4.58 - 5.54 x10(6)/mc L 05/20/2024 5:32 AM [facility] Hemoglobin 7.9(L) 13.7 - 16.5 g/dL 05/20/2024 5:32 AM [facility] Hematocrit 25.5(L) 40.5 - 48.5 % 05/20/2024 5:32 AM [facility] Mean Cell Volume 94.8(H) 82.9 - 93.1 fL 05/20/2024 5:32 AM [facility] Mean Cell Hemoglobin 29.4 27.5 - 32.1 pg 05/20/2024 5:32 AM [facility] Mean Cell Hemoglobin Concentration 31.0(L) 32.0 - 35.7 g/dL 05/20/2024 5:32 AM [facility] Platelet 403(H) 145 - 357 x10(3)/mc L 05/20/2024 5:32 AM [facility] Mean Platelet Volume 10.7 7.6 - 12.9 fL 05/20/2024 5:32 AM [facility] RDW Standard Deviation 54.7(H) 36.0 - 45.0 fL 05/20/2024 5:32 AM [facility] RDW coefficient of variation 15.8(H) 11.4 - 13.8 % 05/20/2024 5:32 AM [facility] NRBC% auto 0.0 % 05/20/2024 5:32 AM [facility] NRBC Absolute 0.00 0.00 - 0.00 x10(3)/mc L 05/20/2024 5:32 AM [facility] Neutrophil % 82.1 % 05/20/2024 5:32 AM EDT [facility] Neutrophil Absolute (ANC) - Automated 12.49(H) 1.70 - 6.10 x10(3)/mc L 05/20/2024 5:32 AM EDT [facility] Lymph % 6.3 % 05/20/2024 5:32 AM EDT [facility] Lymph Absolute 0.96 0.90 - 3.20 x10(3)/mc L 05/20/2024 5:32 AM EDT [facility] Monocyte % 8.7 % 05/20/2024 5:32 AM EDT [facility] Monocyte Absolute 1.32(H) 0.30 - 0.90 x10(3)/mc L 05/20/2024 5:32 AM EDT [facility] Eos % 2.0 % 05/20/2024 5:32 AM EDT [facility] Eos Absolute 0.30 0.00 - 0.40 x10(3)/mc L 05/20/2024 5:32 AM EDT [facility] Basophil % 0.3 % 05/20/2024 5:32 AM EDT [facility] Baso Absolute 0.04 0.00 - 0.10 x10(3)/mc L 05/20/2024 5:32 AM EDT [facility] Immature Gran % 0.6 % 5:32 AM EDT [facility] Immature Gran Absolute 0.09(H) 0.00 - 0.04 x10(3)/mc L 05/20/2024 5:32 AM EDT [facility] Blood VENOUS BLOOD SPECIMEN / Unknown IP Care Team Draw / Unknown 05/20/2024 4:27 AM EDT 05/20/2024 4:52 AM EDT Mary De La Fuente MD HEMATOLOGY ORDERAB LES [facility] [place] [place] [address] * POC, GLUCOSE (05/20/2024 3:11 AM EDT) Glucometer, POC 163 65 - 199 mg/dL 05/20/2024 3:12 AM EDT [facility] Comment:Supplemental ranges: <140 mg/dL before meals <180 mg/dL all other times of the day. Blood CAPILLARY BLOOD / Unknown 05/20/2024 3:11 AM EDT 05/20/2024 3:12 AM EDT Saba Spears MD POINT OF CARE TEST ORDERABLES [facility] [place] [address] * POC, GLUCOSE (05/19/2024 11:07 PM EDT) Glucometer, POC 136 65 - 199 mg/dL 05/19/2024 11:07 PM EDT [facility] Comment:Supplemental ranges: <140 mg/dL before meals <180 mg/dL all other times of the day. Blood CAPILLARY BLOOD / Unknown 05/19/2024 11:07 PM EDT 05/19/2024 11:07 PM EDT Saba Spears MD POINT OF CARE TEST ORDERABLES Performing Organization Address City/[facility]/ZIP Co de Phone Number [facility] [place] [address] * POC, GLUCOSE (05/19/2024 8:20 PM EDT) Glucometer, POC 150 65 - 199 mg/dL 05/19/2024 8:20 PM EDT [facility] Comment:Supplemental ranges: <140 mg/dL before meals <180 mg/dL all other times of the day. Blood CAPILLARY BLOOD / Unknown 05/19/2024 8:20 PM EDT 05/19/2024 8:21 PM EDT Saba Spears MD POINT OF CARE TEST ORDERABLES [facility] [address] * (ABNORMAL) Iron and TIBC (05/19/2024 5:09 PM EDT) Iron 58 45 - 160 mcg/dL 05/19/2024 6:56 PM EDT [facility] Unsaturated Iron Binding Capacity 143 110 - 370 mcg/dL 05/19/2024 6:56 PM EDT [facility] TIBC 201(L) 250 - 450 mcg/dL 05/19/2024 6:56 PM EDT [facility] Iron Saturation 29 20 - 50 % 6:56 PM EDT [facility] Blood VENOUS BLOOD SPECIMEN / Unknown IP Care Team Draw / Unknown 05/19/2024 5:09 PM EDT 05/19/2024 5:43 PM EDT Saba Spears MD CHEMISTRY ORDERABLE S [facility] [address] * PTH (05/19/2024 5:09 PM EDT) Parathyroid Hormone 27 15 - 65 pg/mL 05/19/2024 6:15 PM EDT [facility] Blood VENOUS BLOOD SPECIMEN / Unknown IP Care Team Draw / Unknown 05/19/2024 5:09 PM EDT 05/19/2024 5:43 PM EDT Saba Spears MD CHEMISTRY ORDERABLE S [facility] [address] * Ferritin (05/19/2024 5:08 PM EDT) Ferritin 191 31 - 409 ng/ml 05/19/2024 6:24 PM EDT [facility] Blood VENOUS BLOOD SPECIMEN / Unknown IP Care Team Draw / Unknown 05/19/2024 5:08 PM EDT 05/19/2024 5:43 PM EDT Saba Spears MD CHEMISTRY ORDERABLE S [facility] [address] * POC, GLUCOSE (05/19/2024 3:59 PM EDT) Glucometer, POC 185 65 - 199 mg/dL 05/19/2024 3:59 PM EDT [facility] Comment:Supplemental ranges: <140 mg/dL before meals <180 mg/dL all other times of the day. Blood CAPILLARY BLOOD / Unknown 05/19/2024 3:59 PM EDT 05/19/2024 3:59 PM EDT Saba Spears MD POINT OF CARE TEST ORDERABLES [facility] [place] [address] * POC, GLUCOSE (05/19/2024 12:32 PM EDT) Glucometer, POC 143 65 - 199 mg/dL 05/19/2024 12:32 PM EDT [facility] Comment:Supplemental ranges: <140 mg/dL before meals <180 mg/dL all other times of the day. Blood CAPILLARY BLOOD / Unknown 05/19/2024 12:32 PM EDT 05/19/2024 12:32 PM EDT Saba Spears MD POINT OF CARE TEST ORDERABLES [facility] [place] [address] * POC, GLUCOSE (05/19/2024 8:12 AM EDT) Glucometer, POC 181 65 - 199 mg/dL 05/19/2024 8:13 AM EDT [facility] Comment:Supplemental ranges: <140 mg/dL before meals <180 mg/dL all other times of the day. Blood CAPILLARY BLOOD / Unknown 05/19/2024 8:12 AM EDT 05/19/2024 8:13 AM EDT Saba Spears MD POINT OF CARE TEST ORDERABLES Performing Organization Address City/[facility]/ZIP Co de Phone Number [facility] [address] * (ABNORMAL) Magnesium (05/19/2024 5:11 AM EDT) Magnesium 1.08(H) 0.69 - 1.07 mMol/L 05/19/2024 5:58 AM EDT [facility] Blood VENOUS BLOOD SPECIMEN / Unknown IP Care Team Draw / Unknown 05/19/2024 5:11 AM EDT 05/19/2024 5:30 AM EDT Mary De La Fuente MD CHEMISTRY ORDERABL ES Performing Organization Address [facility] de Phone Number [facility] [address] * (ABNORMAL) Phosphorus (05/19/2024 5:11 AM EDT) Phosphorus 5.1(H) 2.5 - 4.5 mg/dL 05/19/2024 5:58 AM EDT [facility] Blood VENOUS BLOOD SPECIMEN / Unknown IP Care Team Draw / Unknown 05/19/2024 5:11 AM EDT 05/19/2024 5:30 AM EDT Mary De La Fuente MD CHEMISTRY ORDERABL ES Performing Organization Address [facility] Co de Phone Number [facility] [address] * (ABNORMAL) Basic Metabolic Panel (non-fasting) (05/19/2024 5:11 AM EDT) Glucose 162 65 - 199 mg/dL 05/19/2024 6:53 AM [facility] Comment:Glucose Concentratio n >=200 mg/dL plus symptoms is consistent with Diabetes Mellitus. Blood Urea Nitrogen 118(H) 10 - 20 mg/dL 05/19/2024 6:53 AM [facility] Creatinine 2.75(H) 0.80 - 1.50 mg/dL 05/19/2024 6:53 AM [facility] Sodium 136 135 - 145 mMol/L 05/19/2024 6:53 AM [facility] Potassium 5.2(H) 3.5 - 5.0 mMol/L 05/19/2024 6:53 AM [facility] Chloride 108(H) 98 - 107 mMol/L 05/19/2024 6:53 AM [facility] Carbon Dioxide 18(L) 22 - 31 mMol/L 05/19/2024 6:53 AM [facility] Anion Gap 10 5 - 15 mMol/L 05/19/2024 6:53 AM [facility] Calcium 9.3 8.5 - 10.5 mg/dL 05/19/2024 6:53 AM [facility] Est Glomerular Filtration Rate - Male 24 mL/min/1. 73 m?? 05/19/2024 6:53 AM [facility] Comment: This patient's estimated [...] Fasting Status No 05/19/2024 6:53 AM EDT [facility] Blood VENOUS BLOOD SPECIMEN / Unknown IP Care Team Draw / Unknown 05/19/2024 5:11 AM EDT 05/19/2024 5:30 AM EDT Mary De La Fuente MD CHEMISTRY ORDERABL ES [facility] [address] * (ABNORMAL) CBC (with Diff) (05/19/2024 5:11 AM EDT) White Blood Cell 12.77(H) 4.00 - 9.50 x10(3)/mc L 05/19/2024 5:37 AM EDT [facility] Red Blood Cell 3.11(L) 4.58 - 5.54 x10(6)/mc L 05/19/2024 5:37 AM T [facility] Hemoglobin 9.3(L) 13.7 - 16.5 g/dL 05/19/2024 5:37 AM T [facility] Hematocrit 28.9(L) 40.5 - 48.5 % 05/19/2024 5:37 AM [facility] Mean Cell Volume 92.9 82.9 - 93.1 fL 05/19/2024 5:37 AM T [facility] Mean Cell Hemoglobin 29.9 27.5 - 32.1 pg 05/19/2024 5:37 AM EDT [facility] Mean Cell Hemoglobin Concentration 32.2 32.0 - 35.7 g/dL 05/19/2024 5:37 AM [facility] Platelet 379(H) 145 - 357 x10(3)/mc L 05/19/2024 5:37 [facility] Mean Platelet Volume 10.2 7.6 - 12.9 fL 05/19/2024 5:37 AM [facility] RDW Standard Deviation 53.1(H) 36.0 - 45.0 fL 05/19/2024 5:37 AM [facility] RDW coefficient of variation 15.8(H) 11.4 - 13.8 % 05/19/2024 5:37 AM [facility] NRBC% auto 0.0 % 05/19/2024 5:37 AM [facility] NRBC Absolute 0.00 0.00 - 0.00 x10(3)/mc L 05/19/2024 5:37 AM [facility] Neutrophil % 78.9 % 05/19/2024 5:37 AM [facility] Neutrophil Absolute (ANC) - Automated 10.06(H) 1.70 - 6.10 x10(3)/mc L 05/19/2024 5:37 AM [facility] Lymph % 8.1 % 05/19/2024 5:37 AM [facility] Lymph Absolute 1.03 0.90 - 3.20 x10(3)/mc L 05/19/2024 5:37 AM [facility] Monocyte % 10.3 % 05/19/2024 5:37 AM [facility] Monocyte Absolute 1.32(H) 0.30 - 0.90 x10(3)/mc L 05/19/2024 5:37 AM [facility] Eos % 1.6 % 05/19/2024 5:37 AM [facility] Eos Absolute 0.21 0.00 - 0.40 x10(3)/mc L 05/19/2024 5:37 AM [facility] Basophil % 0.2 % 05/19/2024 5:37 AM [facility] Baso Absolute 0.03 0.00 - 0.10 x10(3)/mc L 05/19/2024 5:37 AM [facility] Immature Gran % 0.9 % 5:37 AM [facility] Immature Gran Absolute 0.12(H) 0.00 - 0.04 x10(3)/mc L 05/19/2024 5:37 AM EDT [facility] Blood VENOUS BLOOD SPECIMEN / Unknown IP Care Team Draw / Unknown 05/19/2024 5:11 AM EDT 05/19/2024 5:30 AM EDT Mary De La Fuente MD HEMATOLOGY ORDERAB LES Performing Organization Address City/[facility] Co de Phone Number [facility] [address] * POC, GLUCOSE (05/19/2024 3:27 AM EDT) Glucometer, POC 171 65 - 199 mg/dL 05/19/2024 3:28 AM EDT [facility] Comment:Supplemental ranges: <140 mg/dL before meals <180 mg/dL all other times of the day. Blood CAPILLARY BLOOD / Unknown 05/19/2024 3:27 AM EDT 05/19/2024 3:28 AM EDT Saba Spears MD POINT OF CARE TEST ORDERABLES Performing Organization Address [facility] Co de Phone Number [facility] [place] [address] * POC, GLUCOSE (05/19/2024 12:02 AM EDT) Glucometer, POC 183 65 - 199 mg/dL 05/19/2024 12:02 AM EDT [facility] Comment:Supplemental ranges: <140 mg/dL before meals <180 mg/dL all other times of the day. Blood CAPILLARY BLOOD / Unknown 05/19/2024 12:02 AM EDT 05/19/2024 12:02 AM EDT Saba Spears MD POINT OF CARE TEST ORDERABLES Performing Organization Address City/[facility]/ZIP Co de Phone Number [facility] [place] [address] * (ABNORMAL) POC, GLUCOSE (05/18/2024 8:05 PM EDT) Glucometer, POC 207(H) 65 - 199 mg/dL 05/18/2024 8:06 PM EDT [facility] Comment:Supplemental ranges: <140 mg/dL before meals <180 mg/dL all other times of the day. Blood CAPILLARY BLOOD / Unknown 05/18/2024 8:05 PM EDT 05/18/2024 8:06 PM EDT Saba Spears MD POINT OF CARE TEST ORDERABLES Performing Organization Address City/[facility]/ZIP Co de Phone Number [facility] [place] [address] * POC, GLUCOSE (05/18/2024 6:14 PM EDT) Glucometer, POC 174 65 - 199 mg/dL 05/18/2024 6:15 PM EDT [facility] Comment:Supplemental ranges: <140 mg/dL before meals <180 mg/dL all other times of the day. Blood CAPILLARY BLOOD / Unknown 05/18/2024 6:14 PM EDT 05/18/2024 6:15 PM EDT Saba Spears MD POINT OF CARE TEST ORDERABLES Performing Organization Address City/[facility]/ZIP Co de Phone Number [facility] [place] [address] * (ABNORMAL) Basic Metabolic Panel (05/18/2024 5:04 PM EDT) Glucose 170 65 - 199 mg/dL 05/18/2024 6:14 PM EDT [facility] Comment:Glucose Concentratio n >=200 mg/dL plus symptoms is consistent with Diabetes Mellitus. Blood Urea Nitrogen 116(H) 10 - 20 mg/dL 05/18/2024 6:14 PM EDT [facility] Creatinine 2.64(H) 0.80 - 1.50 mg/dL 05/18/2024 6:14 PM EDT [facility] Sodium 139 135 - 145 mMol/L 05/18/2024 6:14 PM EDT [facility] Potassium 5.4(H) 3.5 - 5.0 mMol/L 05/18/2024 6:14 PM EDT [facility] Chloride 110(H) 98 - 107 mMol/L 05/18/2024 6:14 PM EDT [facility] Carbon Dioxide 17(L) 22 - 31 mMol/L 05/18/2024 6:14 PM EDT [facility] Anion Gap 12 5 - 15 mMol/L 05/18/2024 6:14 PM EDT [facility] Calcium 9.2 8.5 - 10.5 mg/dL 05/18/2024 6:14 PM EDT [facility] Est Glomerular Filtration Rate - Male 25 mL/min/1. 73 m?? 05/18/2024 6:14 PM EDT [facility] Comment: This patient's estimated GFR [...] Fasting Status No 05/18/2024 6:14 PM EDT [facility] Blood VENOUS BLOOD SPECIMEN / Unknown IP Care Team Draw / Unknown 05/18/2024 5:04 PM EDT 05/18/2024 5:11 PM EDT Saba Spears MD CHEMISTRY ORDERABLE S [facility] [address] * (ABNORMAL) POC, GLUCOSE (05/18/2024 11:45 AM EDT) Glucometer, POC 211(H) 65 - 199 mg/dL 05/18/2024 11:45 AM EDT [facility] Comment:Supplemental ranges: <140 mg/dL before meals <180 mg/dL all other times of the day. Blood CAPILLARY BLOOD / Unknown 05/18/2024 11:45 AM EDT 05/18/2024 11:45 AM EDT Saba Spears MD POINT OF CARE TEST ORDERABLES Performing Organization Address [facility] Co de Phone Number [facility] [place] [address] * C diff Screen (05/18/2024 11:31 AM EDT) C Diff Interp Negative Negative 05/18/2024 3:02 PM EDT [facility] Comment:Clostridioides diffi cile is not present in the specimen. If patient is having diarrhea suspected to be from an infectious cause, then Soap & Water Contact Precautions are still required. If patient is having diarrhea with no suspected infectious cause use standard precautions. C Diff PCR Negative Negative, Indeterminate 05/18/2024 3:02 PM EDT [facility] Stool STOOL SPECIMEN / Unknown Non Blood Collection / Unknown 05/18/2024 11:31 AM EDT 05/18/2024 12:09 PM EDT Saba Spears MD MICROBIOLOGY - GENE RAL ORDERABLES Performing Organization Address City/[facility]/ZIP Co de Phone Number [facility] [address] * C Diff PCR (05/18/2024 11:31 AM EDT) Stool STOOL SPECIMEN / Unknown Non Blood Collection / Unknown 05/18/2024 11:31 AM EDT 05/18/2024 12:09 PM EDT Saba Spears MD MICROBIOLOGY - GENE RAL ORDERABLES [facility] [place] [address] * Creatinine, urine, random (05/18/2024 8:57 AM EDT) Creatinine, Urine 44 mg/dL 05/18/2024 9:36 AM EDT [facility] Urine URINE SPECIMEN / Unknown Non Blood Collection / Unknown 05/18/2024 8:57 AM EDT 05/18/2024 9:07 AM EDT Saba Spears MD URINE ORDERABLES Performing Organization Address City/[facility]/ZIP Co de Phone Number [facility] [place] [address] * Electrolytes, urine, random (05/18/2024 8:57 AM EDT) Sodium, Urine 50 mMol/L 05/18/2024 12:09 PM EDT [facility] Potassium, Urine 13 mMol/L 05/18/2024 12:09 PM EDT [facility] Chloride, Urine 35 mMol/L 05/18/2024 12:09 PM EDT [facility] Urine URINE SPECIMEN / Unknown Non Blood Collection / Unknown 05/18/2024 8:57 AM EDT 05/18/2024 9:07 AM EDT Saba Spears MD URINE ORDERABLES Performing Organization Address City/[facility]/ZIP Co de Phone Number [facility] [place] [address] * POC, GLUCOSE (05/18/2024 8:34 AM EDT) Glucometer, POC 182 65 - 199 mg/dL 05/18/2024 8:35 AM EDT [facility] Comment:Supplemental ranges: <140 mg/dL before meals <180 mg/dL all other times of the day. Blood CAPILLARY BLOOD / Unknown 05/18/2024 8:34 AM EDT 05/18/2024 8:35 AM EDT Saba Spears MD POINT OF CARE TEST ORDERABLES [facility] [place] [address] * POC, GLUCOSE (05/18/2024 4:10 AM EDT) Glucometer, POC 163 65 - 199 mg/dL 05/18/2024 4:10 AM EDT [facility] Comment:Supplemental ranges: <140 mg/dL before meals <180 mg/dL all other times of the day. Blood CAPILLARY BLOOD / Unknown 05/18/2024 4:10 AM EDT 05/18/2024 4:11 AM EDT Saba Spears MD POINT OF CARE TEST ORDERABLES [facility] [place] [address] * (ABNORMAL) CBC (with Diff) (05/18/2024 4:01 AM EDT) White Blood Cell 9.84(H) 4.00 - 9.50 x10(3)/mc L 05/18/2024 4:19 AM EDT [facility] Red Blood Cell 3.24(L) 4.58 - 5.54 x10(6)/mc L 05/18/2024 4:19 AM EDT [facility] Hemoglobin 9.6(L) 13.7 - 16.5 g/dL 05/18/2024 4:19 AM EDT [facility] Hematocrit 31.4(L) 40.5 - 48.5 % 05/18/2024 4:19 AM EDT [facility] Mean Cell Volume 96.9(H) 82.9 - 93.1 fL 05/18/2024 4:19 AM [facility] Mean Cell Hemoglobin 29.6 27.5 - 32.1 pg 05/18/2024 4:19 AM [facility] Mean Cell Hemoglobin Concentration 30.6(L) 32.0 - 35.7 g/dL 05/18/2024 4:19 AM [facility] Platelet 335 145 - 357 x10(3)/mc L 05/18/2024 4:19 AM [facility] Mean Platelet Volume 10.3 7.6 - 12.9 fL 05/18/2024 4:19 AM [facility] RDW Standard Deviation 56.4(H) 36.0 - 45.0 fL 05/18/2024 4:19 AM [facility] RDW coefficient of variation 15.7(H) 11.4 - 13.8 % 05/18/2024 4:19 AM [facility] NRBC% auto 0.2 % 05/18/2024 4:19 AM [facility] NRBC Absolute 0.02(H) 0.00 - 0.00 x10(3)/mc L 05/18/2024 4:19 AM [facility] Neutrophil % 76.5 % 05/18/2024 4:19 AM [facility] Neutrophil Absolute (ANC) - Automated 7.52(H) 1.70 - 6.10 x10(3)/mc L 05/18/2024 4:19 AM [facility] Lymph % 8.0 % 05/18/2024 4:19 AM [facility] Lymph Absolute 0.79(L) 0.90 - 3.20 x10(3)/mc L 05/18/2024 4:19 AM [facility] Monocyte % 12.5 % 05/18/2024 4:19 AM [facility] Monocyte Absolute 1.23(H) 0.30 - 0.90 x10(3)/mc L 05/18/2024 4:19 AM EDT [facility] Eos % 1.9 % 05/18/2024 4:19 AM EDT [facility] Eos Absolute 0.19 0.00 - 0.40 x10(3)/mc L 05/18/2024 4:19 AM EDT [facility] Basophil % 0.2 % 05/18/2024 4:19 AM EDT [facility] Baso Absolute 0.02 0.00 - 0.10 x10(3)/mc L 05/18/2024 4:19 AM EDT [facility] Immature Gran % 0.9 % 4:19 AM EDT [facility] Immature Gran Absolute 0.09(H) 0.00 - 0.04 x10(3)/mc L 05/18/2024 4:19 AM EDT [facility] Blood VENOUS BLOOD SPECIMEN / Unknown IP Care Team Draw / Unknown 05/18/2024 4:01 AM EDT 05/18/2024 4:13 AM EDT Mary De La Fuente MD HEMATOLOGY ORDERAB LES Performing Organization Address City/[facility]/ZIP Co de Phone Number [facility] [address] * (ABNORMAL) Magnesium (05/18/2024 4:00 AM EDT) Magnesium 1.09(H) 0.69 - 1.07 mMol/L 05/18/2024 10:11 AM EDT [facility] Blood VENOUS BLOOD SPECIMEN / Unknown IP Care Team Draw / Unknown 05/18/2024 4:00 AM EDT 05/18/2024 4:13 AM EDT Mary De La Fuente MD CHEMISTRY ORDERABL ES Performing Organization Address City/[facility]/ZIP Co de Phone Number [facility] [place] [address] * (ABNORMAL) Phosphorus (05/18/2024 4:00 AM EDT) Phosphorus 4.7(H) 2.5 - 4.5 mg/dL 05/18/2024 10:11 AM EDT [facility] Blood VENOUS BLOOD SPECIMEN / Unknown IP Care Team Draw / Unknown 05/18/2024 4:00 AM EDT 05/18/2024 4:13 AM EDT Mary De La Fuente MD CHEMISTRY ORDERABL ES [facility] [address] * (ABNORMAL) Basic Metabolic Panel (non-fasting) (05/18/2024 4:00 AM EDT) Glucose 144 65 - 199 mg/dL 05/18/2024 10:[facility] Comment:Glucose Concentratio n >=200 mg/dL plus symptoms is consistent with Diabetes Mellitus. Blood Urea Nitrogen 105(H) 10 - 20 mg/dL 05/18/2024 10:11 AM [facility] Creatinine 2.69(H) 0.80 - 1.50 mg/dL 05/18/2024 10:11 AM [facility] Sodium 134(L) 135 - 145 mMol/L 05/18/2024 10:11 AM [facility] Potassium 5.6(H) 3.5 - 5.0 mMol/L 05/18/2024 10:11 AM [facility] Chloride 107 98 - 107 mMol/L 05/18/2024 10:11 AM [facility] Carbon Dioxide 11(L) 22 - 31 mMol/L 05/18/2024 10:11 AM [facility] Anion Gap 16(H) 5 - 15 mMol/L 05/18/2024 10:11 AM [facility] Calcium 8.8 8.5 - 10.5 mg/dL 05/18/2024 10:11 AM [facility] Est Glomerular Filtration Rate - Male 25 mL/min/1. 73 m?? 05/18/2024 10:11 AM EDT [facility] Comment: This patient's estimated GFR [...] Fasting Status No 05/18/2024 10:11 AM EDT [facility] Blood VENOUS BLOOD SPECIMEN / Unknown IP Care Team Draw / Unknown 05/18/2024 4:00 AM EDT 05/18/2024 4:13 AM EDT Mary De La Fuente MD CHEMISTRY ORDERABL ES Performing Organization Address City/[facility]/ZIP Co de Phone Number [facility] [place] [address] * (ABNORMAL) POC, GLUCOSE (05/17/2024 11:30 PM EDT) Glucometer, POC 232(H) 65 - 199 mg/dL 05/17/2024 11:30 PM EDT [facility] Comment:Supplemental ranges: <140 mg/dL before meals <180 mg/dL all other times of the day. Blood CAPILLARY BLOOD / Unknown 05/17/2024 11:30 PM EDT 05/17/2024 11:30 PM EDT Saba Spears MD POINT OF CARE TEST ORDERABLES Performing Organization Address City/[facility]/ZIP Co de Phone Number [facility] [address] * POC, GLUCOSE (05/17/2024 8:12 PM EDT) Glucometer, POC 161 65 - 199 mg/dL 05/17/2024 8:12 PM EDT [facility] Comment:Supplemental ranges: <140 mg/dL before meals <180 mg/dL all other times of the day. Blood CAPILLARY BLOOD / Unknown 05/17/2024 8:12 PM EDT 05/17/2024 8:13 PM EDT Saba Spears MD POINT OF CARE TEST ORDERABLES [facility] [place] [address] * POC, GLUCOSE (05/17/2024 5:35 PM EDT) Glucometer, POC 167 65 - 199 mg/dL 05/17/2024 5:35 PM EDT [facility] Comment:Supplemental ranges: <140 mg/dL before meals <180 mg/dL all other times of the day. Blood CAPILLARY BLOOD / Unknown 05/17/2024 5:35 PM EDT 05/17/2024 5:35 PM EDT Saba Spears MD POINT OF CARE TEST ORDERABLES Performing Organization Address City/[facility]/ZIP Co de Phone Number [facility] [place] [address] * POC, GLUCOSE (05/17/2024 12:50 PM EDT) Glucometer, POC 147 65 - 199 mg/dL 05/17/2024 12:50 PM EDT [facility] Comment:Supplemental ranges: <140 mg/dL before meals <180 mg/dL all other times of the day. Blood CAPILLARY BLOOD / Unknown 05/17/2024 12:50 PM EDT 05/17/2024 12:50 PM EDT Saba Spears MD POINT OF CARE TEST ORDERABLES [facility] [place] [address] * POC, GLUCOSE (05/17/2024 8:20 AM EDT) Glucometer, POC 139 65 - 199 mg/dL 05/17/2024 8:21 AM EDT [facility] Comment:Supplemental ranges: <140 mg/dL before meals <180 mg/dL all other times of the day. Blood CAPILLARY BLOOD / Unknown 05/17/2024 8:20 AM EDT 05/17/2024 8:21 AM EDT Treva Diaz MD POINT OF CARE TEST ORDERABLES Performing Organization Address [facility] Co de Phone Number [facility] [place] [address] * (ABNORMAL) Magnesium (05/17/2024 5:49 AM EDT) Magnesium 1.14(H) 0.69 - 1.07 mMol/L 05/17/2024 6:58 AM EDT [facility] Blood IP Care Team Dra reilly / Nick 05/17/2024 5:49 AM EDT 05/17/2024 6:13 AM EDT Mary De La Fuente MD CHEMISTRY ORDERABL ES Performing Organization Address [facility] Co de Phone Number [facility] [place] [address] * (ABNORMAL) Phosphorus (05/17/2024 5:49 AM EDT) Phosphorus 5.6(H) 2.5 - 4.5 mg/dL 05/17/2024 6:58 AM EDT [facility] Blood IP Care Team Dra reilly / Unknown 05/17/2024 5:49 AM EDT 05/17/2024 6:13 AM EDT Mary De La Fuente MD CHEMISTRY ORDERABL ES Performing Organization Address City/[facility]/ZIP Co de Phone Number [facility] [place] [address] * (ABNORMAL) Basic Metabolic Panel (non-fasting) (05/17/2024 5:49 AM EDT) Glucose 131 65 - 199 mg/dL 05/17/2024 6:58 AM EDT [facility] Comment:Glucose Concentratio n >=200 mg/dL plus symptoms is consistent with Diabetes Mellitus. Blood Urea Nitrogen 86(H) 10 - 20 mg/dL 05/17/2024 6:58 AM EDT [facility] Creatinine 3.07(H) 0.80 - 1.50 mg/dL 05/17/2024 6:58 AM [facility] Sodium 134(L) 135 - 145 mMol/L 05/17/2024 6:58 AM [facility] Potassium 5.0 3.5 - 5.0 mMol/L 05/17/2024 6:[facility] Chloride 103 98 - 107 mMol/L 05/17/2024 6:58 AM [facility] Carbon Dioxide 21(L) 22 - 31 mMol/L 05/17/2024 6:58 AM [facility] Anion Gap 10 5 - 15 mMol/L 05/17/2024 6:58 AM [facility] Calcium 8.7 8.5 - 10.5 mg/dL 05/17/2024 6:58 [facility] Est Glomerular Filtration Rate - Male 21 mL/min/1. 73 m?? 05/17/2024 6:58 AM [facility] Comment: This patient's estimated [...] Fasting Status No 05/17/2024 6:58 AM EDT [facility] Blood IP Care Team w / Nick 05/17/2024 5:49 AM EDT 05/17/2024 6:13 AM EDT Mary De La Fuente MD CHEMISTRY ORDERABL ES [facility] [place] [address] * (ABNORMAL) CBC (with Diff) (05/17/2024 5:49 AM EDT) White Blood Cell 8.61 4.00 - 9.50 x10(3)/mc L 05/17/2024 6:28 AM EDT [facility] Red Blood Cell 3.54(L) 4.58 - 5.54 x10(6)/mc L 05/17/2024 6:28 AM EDT [facility] Hemoglobin 10.5(L) 13.7 - 16.5 g/dL 05/17/2024 6:28 AM [facility] Hematocrit 33.9(L) 40.5 - 48.5 % 05/17/2024 6:28 [facility] Mean Cell Volume 95.8(H) 82.9 - 93.1 fL 05/17/2024 6:28 AM EDT [facility] Mean Cell Hemoglobin 29.7 27.5 - 32.1 pg 05/17/2024 6:28 [facility] Mean Cell Hemoglobin Concentration 31.0(L) 32.0 - 35.7 g/dL 05/17/2024 6:28 [facility] Platelet 341 145 - 357 x10(3)/mc L 05/17/2024 6:28 AM EDT [facility] Mean Platelet Volume 10.4 7.6 - 12.9 fL 05/17/2024 6:28 AM [facility] RDW Standard Deviation 56.5(H) 36.0 - 45.0 fL 05/17/2024 6:28 AM [facility] RDW coefficient of variation 15.7(H) 11.4 - 13.8 % 05/17/2024 6:28 AM [facility] NRBC% auto 0.0 % 05/17/2024 6:28 AM [facility] NRBC Absolute 0.00 0.00 - 0.00 x10(3)/mc L 05/17/2024 6:28 AM [facility] Neutrophil % 76.3 % 05/17/2024 6:28 AM [facility] Neutrophil Absolute (ANC) - Automated 6.57(H) 1.70 - 6.10 x10(3)/mc L 05/17/2024 6:28 AM [facility] Lymph % 9.9 % 05/17/2024 6:28 AM [facility] Lymph Absolute 0.85(L) 0.90 - 3.20 x10(3)/mc L 05/17/2024 6:28 AM [facility] Monocyte % 11.7 % 05/17/2024 6:28 AM [facility] Monocyte Absolute 1.01(H) 0.30 - 0.90 x10(3)/mc L 05/17/2024 6:28 AM [facility] Eos % 0.8 % 05/17/2024 6:28 AM [facility] Eos Absolute 0.07 0.00 - 0.40 x10(3)/mc L 05/17/2024 6:28 AM [facility] Basophil % 0.1 % 05/17/2024 6:28 AM [facility] Baso Absolute 0.01 0.00 - 0.10 x10(3)/mc L 05/17/2024 6:28 AM EDT [facility] Immature Gran % 1.2 % 6:28 AM EDT [facility] Immature Gran Absolute 0.10(H) 0.00 - 0.04 x10(3)/mc L 05/17/2024 6:28 AM EDT [facility] Blood IP Care Team w / Nick 05/17/2024 5:49 AM EDT 05/17/2024 6:13 AM EDT Mary De La Fuente MD HEMATOLOGY ORDERAB LES Performing Organization Address [facility] Co de Phone Number [facility] [address] * Vancomycin Level, Random (05/17/2024 5:49 AM EDT) Vancomycin, Random 22.4 mg/L 2023 6:58 AM EDT [facility] Comment:This level is for de termination of the patient's vancomycin ztor-pltjm-jqs-curve (AUC) value. Contact the inpatient pharmacy for interpretation. Blood IP Care Team Dra reilly / Nick 05/17/2024 5:49 AM EDT 05/17/2024 6:13 AM EDT Treva Diaz MD CHEMISTRY ORDERABL ES Performing Organization Address [facility] Co de Phone Number [facility] [address] * POC, GLUCOSE (05/17/2024 3:54 AM EDT) Glucometer, POC 135 65 - 199 mg/dL 05/17/2024 3:55 AM EDT [facility] Comment:Supplemental ranges: <140 mg/dL before meals <180 mg/dL all other times of the day. Blood CAPILLARY BLOOD / Unknown 05/17/2024 3:54 AM EDT 05/17/2024 3:55 AM EDT Treva Diaz MD POINT OF CARE TEST ORDERABLES [facility] [place] [address] * POCT Glucose (05/16/2024 11:46 PM EDT) Glucose, POC 148 65 - 199 mg/dL [facility] Comment: Supplemental ranges: <140 mg/dL before meals <180 mg/dL all other times of the day Blood 05/16/2024 11:4 6 PM EDT 05/16/2024 11:46 PM EDT Treva Diaz MD POINT OF CARE TEST ORDERABLES [facility] [place] [address] * POCT Glucose (05/16/2024 9:06 PM EDT) Glucose, POC 191 65 - 199 mg/dL [facility] Comment: Supplemental ranges: <140 mg/dL before meals <180 mg/dL all other times of the day Blood 05/16/2024 9:06 PM EDT 05/16/2024 9:06 PM EDT Treva Diaz MD POINT OF CARE TEST ORDERABLES [facility] [address] * POCT Glucose (05/16/2024 8:04 PM EDT) Glucose, POC 199 65 - 199 mg/dL [facility] Comment: Supplemental ranges: <140 mg/dL before meals <180 mg/dL all other times of the day Blood 05/16/2024 8:04 PM EDT 05/16/2024 8:04 PM EDT Treva Diaz MD POINT OF CARE TEST ORDERABLES Performing Organization Address City/[facility]/ZIP Co de Phone Number [facility] [place] [address] * POCT Glucose (05/16/2024 4:51 PM EDT) Glucose, POC 162 65 - 199 mg/dL [facility] Comment: Supplemental ranges: <140 mg/dL before meals <180 mg/dL all other times of the day Blood 05/16/2024 4:51 PM EDT 05/16/2024 4:51 PM EDT Treva Diaz MD POINT OF CARE TEST ORDERABLES Performing Organization Address [facility]/ZIP Co de Phone Number [facility] [place] [address] * POCT Glucose (05/16/2024 12:48 PM EDT) Glucose, POC 153 65 - 199 mg/dL [facility] Comment: Supplemental ranges: <140 mg/dL before meals <180 mg/dL all other times of the day Blood 05/16/2024 12:4 8 PM EDT 05/16/2024 12:48 PM EDT Treva Diaz MD POINT OF CARE TEST ORDERABLES Performing Organization Address [facility]/ZIP Co de Phone Number [facility] [place] [address] * POCT Glucose (05/16/2024 8:45 AM EDT) Glucose, POC 165 65 - 199 mg/dL [facility] Comment: Supplemental ranges: <140 mg/dL before meals <180 mg/dL all other times of the day Blood 05/16/2024 8:45 AM EDT 05/16/2024 8:45 AM EDT Treva Diaz MD POINT OF CARE TEST ORDERABLES Performing Organization Address City/[facility]/ZIP Co de Phone Number [facility] [place] [address] * (ABNORMAL) Differential, Automated (05/16/2024 5:14 AM EDT) Neutrophil % 79.4 % [facility] Neutrophil Absolute 9.22(H) 1.70 - 6.10 x10(3)/mc L [facility] Lymph % 6.6 % [facility] Lymphocytes Abs 0.8(L) 0.9 - 3.2 x10(3)/mc L [facility] Monocyte % 9.5 % [facility] Monocyte Abs 1.1(H) 0.3 - 0.9 x10(3)/mc L [facility] Eos % 0.0 % [facility] Eosinophils Abs 0.0 0.0 - 0.4 x10(3)/ L [facility] Basophil % 0.2 % [facility] Baso Absolute 0.0 0.0 - 0.1 x10(3)/ L [facility] Immature Gran % 4.30 % [facility] Comment: Immature granulocytes(IG's)percentage and absolute count will include metamyelocytes, myelocytes, and promyelocytes. Blood smears from CBCs yielding IG's will be scanned manually for concordance. If this scan disagrees with the automated IG or if promyelocytes are noted, a manual differential will be performed. Immature Gran Absolute 0.50(H) 0.00 - 0.04 x10(3)/mc L [facility] Blood 05/16/2024 5:14 AM EDT 05/16/2024 5:38 AM EDT Narrative Resulting Agency Comment Spec In Lab Carlotta Davis MD HEMATOLOGY OR DERABLES Performing Organization Address City/[facility]/ZIP Co de Phone Number [facility] [address] * (ABNORMAL) Hemogram (05/16/2024 5:14 AM EDT) White Blood Cell 11.6(H) 4.0 - 9.5 x10(3)/[facility] Red Blood Cell 3.59(L) 4.58 - 5.54 x10(6)/ L [facility] Hemoglobin 10.5(L) 13.7 - 16.5 g/dL [facility] Hematocrit 33.8(L) 40.5 - 48.5 % [facility] Mean Cell Volume 94.2(H) 82.9 - 93.1 [facility] Mean Cell Hemoglobin 29.2 27.5 - 32.1 pg [facility] Mean Cell Hemoglobin Concentration 31.1(L) 32.0 - 35.7 g/dL [facility] Platelet 317 145 - 357 x10(3)/[facility] RDW Standard Deviation 55.1(H) 36.0 - 45.0 [facility] RDW coefficient of variation 15.9(H) 11.4 - 13.8 % [facility] Mean Platelet Volume 10.6 7.6 - 12.9 [facility] NRBC% auto 0.0 % [facility] NRBC Absolute 0.000 0.000 - 0.000 x10(3)/[facility] Blood 05/16/2024 5:14 AM EDT 05/16/2024 5:38 AM EDT Narrative Resulting Agency Comment Spec In Lab Carlotta Davis MD HEMATOLOGY OR DERABLES [facility] [address] * (ABNORMAL) Magnesium (05/16/2024 5:14 AM EDT) Magnesium 1.22(H) 0.69 - 1.07 mmol/L [facility] Blood 05/16/2024 5:14 AM EDT 05/16/2024 5:38 AM EDT Narrative Resulting Agency Comment Spec In Lab Mary De La Fuente MD CHEMISTRY ORDERABL ES Performing Organization Address [facility] Co de Phone Number [facility] [address] * (ABNORMAL) Phosphorus (05/16/2024 5:14 AM EDT) Phosphorus 6.3(H) 2.5 - 4.5 mg/dL [facility] Blood 05/16/2024 5:14 AM EDT 05/16/2024 5:38 AM EDT Narrative Resulting Agency Comment Spec In Lab Mary De La Fuente MD CHEMISTRY ORDERABL ES Performing Organization Address [facility] Co de Phone Number [facility] [place] [address] * (ABNORMAL) Basic Metabolic Panel (non-fasting) (05/16/2024 5:14 AM EDT) Glucose 154 65 - 199 mg/dL [facility] Comment:Diabetes: >=200 mg/d L plus symptoms Blood Urea Nitrogen 74(H) 10 - 20 mg/dL [facility] Creatinine 2.88(H) 0.80 - 1.50 mg/dL [facility] Sodium 133(L) 135 - 145 mmol/L [facility] Potassium 5.0 3.5 - 5.0 mmol/L [facility] Comment: Please note: ??Patients with WBC >100,000 may have falsely elevated Potassium levels. ??For accurate Potassium quantification in these patients send serum separator tube (gold top) for subsequent determinations. ??Contact the Clinical Chemistry Laboratory if there are any questions. Chloride 101 98 - 107 mmol/L [facility] Carbon Dioxide 21(L) 22 - 31 mmol/L [facility] Anion Gap 11 5 - 15 mmol/L [facility] Calcium 8.8 8.5 - 10.5 mg/dL [facility] Est Glomerular Filtration Rate 23(L) >=60 mL/min/1. 73 m?? [facility] Comment: This patient's estimated GFR [...] MD CHEMISTRY ORDERABL ES Performing Organization Address City/[facility]/ZIP Co de Phone Number [facility] [address] * Vancomycin Level, Random (05/16/2024 5:14 AM EDT) Vancomycin, Random 29.1 mg/L M [facility] Comment: This level is for determination of the patient's vancomycin ibyo-agmbi-euh-curve (AUC) value. Contact the inpatient pharmacy for interpretation. Blood 05/16/2024 5:14 AM EDT 05/16/2024 5:38 AM EDT Treva Diaz MD CHEMISTRY ORDERABL ES [facility] [place] [address] * POCT Glucose (05/16/2024 3:53 AM EDT) Glucose, POC 166 65 - 199 mg/dL [facility] Comment: Supplemental ranges: <140 mg/dL before meals <180 mg/dL all other times of the day Blood 05/16/2024 3:53 AM EDT 05/16/2024 3:53 AM EDT Treva Diaz MD POINT OF CARE TEST ORDERABLES [facility] [place] [address] * POCT Glucose (05/15/2024 11:41 PM EDT) Glucose, POC 171 65 - 199 mg/dL [facility] Comment: Supplemental ranges: <140 mg/dL before meals <180 mg/dL all other times of the day Blood 05/15/2024 11:4 1 PM EDT 05/15/2024 11:41 PM EDT Treva Diaz MD POINT OF CARE TEST ORDERABLES [facility] [place] [address] * POCT Glucose (05/15/2024 10:32 PM EDT) Glucose, POC 183 65 - 199 mg/dL [facility] Comment: Supplemental ranges: <140 mg/dL before meals <180 mg/dL all other times of the day Blood 05/15/2024 10:3 2 PM EDT 05/15/2024 10:32 PM EDT Treva Diaz MD POINT OF CARE TEST ORDERABLES [facility] [place] [address] * POCT Glucose (05/15/2024 7:53 PM EDT) Glucose, POC 187 65 - 199 mg/dL [facility] Comment: Supplemental ranges: <140 mg/dL before meals <180 mg/dL all other times of the day Blood 05/15/2024 7:53 PM EDT 05/15/2024 7:53 PM EDT Treva Diaz MD POINT OF CARE TEST ORDERABLES Performing Organization Address [facility] de Phone Number [facility] [address] * MRSA PCR Screen ([facility]/CGP/APD/NLH) (05/15/2024 4:15 PM EDT) [facility] MRSA PCR Negative Negative [facility] MRSA (Interp) Methicillin-resist ant Staphylococcus aureus (MRSA) is NOT DETECTED The MRSA target DNA sequences (mec and SCC) were not detected within the acceptable ranges using the Xpert MRSA NxG on the GeneXpert Dx System (Watch[employer]). This suggests the absence of MRSA in the patient specimen submitted for testing. This test is cleared by the U.[place]. Food and Drug Administration for clinical use and its performance characteristics have been verified by the [facility] at [facility]. This result does not rule out the presence of any other organisms. Rare false negative results may occur if MRSA is present at low concentrations with much higher concentrations of other organisms including MRSE or S. aureus with an empty SCC cassette. [facility] Comment: [VERIFIED DATE]05.15.24 Verified By:Lupe Jensen (Electronic Signature) Nasopharyngeal Swab 05/15/20 4:15 PM EDT 05/15/2024 6:28 PM EDT Comment:Specimen Type->Nasop haryngeal Swab Narrative Resulting Agency Comment Spec In Lab Treva Diaz MD MOLECULAR ORDERABL ES Performing Organization Address [facility] Co de Phone Number [facility] [address] * (ABNORMAL) POCT Glucose (05/15/2024 3:20 PM EDT) [facility] Glucose, POC 224(H) 65 - 199 mg/dL [facility] Comment: Supplemental ranges: <140 mg/dL before meals <180 mg/dL all other times of the day Blood 05/15/2024 3:20 PM EDT 05/15/2024 3:20 PM EDT Treva Diaz MD POINT OF CARE TEST ORDERABLES [facility] [address] * (ABNORMAL) POCT Glucose (05/15/2024 11:39 AM EDT) Glucose, POC 213(H) 65 - 199 mg/dL [facility] Comment: Supplemental ranges: <140 mg/dL before meals <180 mg/dL all other times of the day Blood 05/15/2024 11:3 9 AM EDT 05/15/2024 11:39 AM EDT Treva Diaz MD POINT OF CARE TEST ORDERABLES Performing Organization Address City/[facility]/ZIP Co de Phone Number [facility] [place] [address] * POCT Glucose (05/15/2024 8:02 AM EDT) Glucose, POC 190 65 - 199 mg/dL [facility] Comment: Supplemental ranges: <140 mg/dL before meals <180 mg/dL all other times of the day Blood 05/15/2024 8:02 AM EDT 05/15/2024 8:02 AM EDT Treva Diaz MD POINT OF CARE TEST ORDERABLES Performing Organization Address City/[facility]/ZIP Co de Phone Number [facility] [place] [address] * (ABNORMAL) Differential, Automated (05/15/2024 5:12 AM EDT) Neutrophil % 85.3 % [facility] Neutrophil Absolute 11.37(H) 1.70 - 6.10 x10(3)/ L [facility] Lymph % 3.7 % [facility] Lymphocytes Abs 0.5(L) 0.9 - 3.2 x10(3)/ L [facility] Monocyte % 9.1 % [facility] Monocyte Abs 1.2(H) 0.3 - 0.9 x10(3)/ L [facility] Eos % 0.0 % [facility] Eosinophils Abs 0.0 0.0 - 0.4 x10(3)/[facility] Basophil % 0.1 % [facility] Baso Absolute 0.0 0.0 - 0.1 x10(3)/[facility] Immature Gran % 1.80 % [facility] Comment: Immature granulocytes(IG's)percentage and absolute count will include metamyelocytes, myelocytes, and promyelocytes. Blood smears from CBCs yielding IG's will be scanned manually for concordance. If this scan disagrees with the automated IG or if promyelocytes are noted, a manual differential will be performed. Immature Gran Absolute 0.24(H) 0.00 - 0.04 x10(3)/[facility] Blood 05/15/2024 5:12 AM EDT 05/15/2024 5:38 AM EDT Narrative Resulting Agency Comment Spec In Lab Carlotta Davis MD HEMATOLOGY OR DERABLES [facility] [place] [address] * (ABNORMAL) Hemogram (05/15/2024 5:12 AM EDT) White Blood Cell 13.4(H) 4.0 - 9.5 x10(3)/ L [facility] Red Blood Cell 3.58(L) 4.58 - 5.54 x10(6)/mc L [facility] Hemoglobin 10.9(L) 13.7 - 16.5 g/dL [facility] Hematocrit 34.1(L) 40.5 - 48.5 % [facility] Mean Cell Volume 95.3(H) 82.9 - 93.1 [facility] Mean Cell Hemoglobin 30.4 27.5 - 32.1 pg [facility] Mean Cell Hemoglobin Concentration 32.0 32.0 - 35.7 g/dL [facility] Platelet 227 145 - 357 x10(3)/mc L [facility] RDW Standard Deviation 55.8(H) 36.0 - 45.0 [facility] RDW coefficient of variation 15.8(H) 11.4 - 13.8 % [facility] Mean Platelet Volume 10.7 7.6 - 12.9 [facility] NRBC% auto 0.0 % [facility] NRBC Absolute 0.000 0.000 - 0.000 x10(3)/mc L [facility] Blood 05/15/2024 5:12 AM EDT 05/15/2024 5:38 AM EDT Narrative Resulting Agency Comment Spec In Lab Carlotta Davis MD HEMATOLOGY OR DERABLES Performing Organization Address City/State/[facility] Co de Phone Number [facility] [address] * (ABNORMAL) Magnesium (05/15/2024 5:12 AM EDT) Magnesium 1.21(H) 0.69 - 1.07 mmol/L [facility] Blood 05/15/2024 5:12 AM EDT 05/15/2024 5:38 AM EDT Narrative Resulting Agency Comment Spec In Lab Mary De La Fuente MD CHEMISTRY ORDERABL ES [facility] [address] * (ABNORMAL) Phosphorus (05/15/2024 5:12 AM EDT) Phosphorus 6.5(H) 2.5 - 4.5 mg/dL [facility] Comment:result rechecked-HN Blood 05/15/2024 5:12 AM EDT 05/15/2024 5:38 AM EDT Narrative Resulting Agency Comment Spec In Lab Mary De La Fuente MD CHEMISTRY ORDERABL ES Performing Organization Address City/[facility]/ZIP Co de Phone Number [facility] [place] [address] * (ABNORMAL) Basic Metabolic Panel (non-fasting) (05/15/2024 5:12 AM EDT) Glucose 217(H) 65 - 199 mg/dL [facility] Comment:Diabetes: >=200 mg/d L plus symptoms Blood Urea Nitrogen 58(H) 10 - 20 mg/dL [facility] Creatinine 2.46(H) 0.80 - 1.50 mg/dL [facility] Comment:result rechecked-HN Sodium 135 135 - 145 mmol/L [facility] Potassium 5.2(H) 3.5 - 5.0 mmol/L [facility] Comment: Please note: ??Patients with WBC >100,000 may have falsely elevated Potassium levels. ??For accurate Potassium quantification in these patients send serum separator tube (gold top) for subsequent determinations. ??Contact the Clinical Chemistry Laboratory if there are any questions. Chloride 100 98 - 107 mmol/L [facility] Carbon Dioxide 23 22 - 31 mmol/L [facility] Anion Gap 12 5 - 15 mmol/L [facility] Calcium 8.8 8.5 - 10.5 mg/dL [facility] Est Glomerular Filtration Rate 27(L) >=60 mL/min/1. 73 m?? [facility] Comment: This patient's estimated GFR [...] MD CHEMISTRY ORDERABL ES Performing Organization Address [facility] Co de Phone Number [facility] [place] [address] * (ABNORMAL) POCT Glucose (05/15/2024 4:55 AM EDT) Glucose, POC 223(H) 65 - 199 mg/dL [facility] Comment: Supplemental ranges: <140 mg/dL before meals <180 mg/dL all other times of the day Blood 05/15/2024 4:55 AM EDT 05/15/2024 4:55 AM EDT Treva Diaz MD POINT OF CARE TEST ORDERABLES Performing Organization Address [facility]/ZIP Co de Phone Number [facility] [address] * (ABNORMAL) POCT Glucose (05/15/2024 2:51 AM EDT) Glucose, POC 279(H) 65 - 199 mg/dL [facility] Comment: Supplemental ranges: <140 mg/dL before meals <180 mg/dL all other times of the day Blood 05/15/2024 2:51 AM EDT 05/15/2024 2:51 AM EDT Treva Diaz MD POINT OF CARE TEST ORDERABLES Performing Organization Address City/[facility]/ZIP Co de Phone Number [facility] [address] * (ABNORMAL) POCT Glucose (05/14/2024 9:03 PM EDT) Glucose, POC 257(H) 65 - 199 mg/dL [facility] Comment: Supplemental ranges: <140 mg/dL before meals <180 mg/dL all other times of the day Blood 05/14/2024 9:03 PM EDT 05/14/2024 9:03 PM EDT Treva Diaz MD POINT OF CARE TEST ORDERABLES Performing Organization Address City/[facility] Co de Phone Number [facility] [place] [place] [address] * (ABNORMAL) POCT Glucose (05/14/2024 7:15 PM EDT) Glucose, POC 207(H) 65 - 199 mg/dL [facility] Comment: Supplemental ranges: <140 mg/dL before meals <180 mg/dL all other times of the day Blood 05/14/2024 7:15 PM EDT 05/14/2024 7:15 PM EDT Treva Diaz MD POINT OF CARE TEST ORDERABLES Performing Organization Address City/[facility]/ZIP Co de Phone Number [facility] [place] [place] [address] * POCT Glucose (05/14/2024 4:47 PM EDT) Glucose, POC 188 65 - 199 mg/dL [facility] Comment: Supplemental ranges: <140 mg/dL before meals <180 mg/dL all other times of the day Blood 05/14/2024 4:47 PM EDT 05/14/2024 4:47 PM EDT Treva Diaz MD POINT OF CARE TEST ORDERABLES Performing Organization Address [facility]/ZIP Co de Phone Number [facility] [place] [address] * POCT Glucose (05/14/2024 1:21 PM EDT) Glucose, POC 163 65 - 199 mg/dL [facility] Comment: Supplemental ranges: <140 mg/dL before meals <180 mg/dL all other times of the day Blood 05/14/2024 1:21 PM EDT 05/14/2024 1:21 PM EDT Treva Diaz MD POINT OF CARE TEST ORDERABLES Performing Organization Address [facility]/ZIP Co de Phone Number [facility] [place] [address] * Anaerobic Culture (05/14/2024 11:33 AM EDT) Anaerobic Culture No anaerobic organisms isolated [facility] Toe 05/14/2024 11:3 3 AM EDT 05/14/2024 12:33 PM EDT Comment:PROXIMAL RIGHT 2ND T OE Narrative Resulting Agency Comment Spec In Lab Gennaro Meyers MD MICROBIOLOGY - GENE RAL ORDERABLES Performing Organization Address [facility]/ZIP Co de Phone Number [facility] [place] [address] * (ABNORMAL) Tissue culture (05/14/2024 11:33 AM EDT) Tissue Culture One colony of Coagulase negative Staphylococcus species(A) [facility] Gram Stain Few Neutrophils seen Rare Gram Positive Cocci in pairs seen Results called to and read back by Dr. Mihaela Galvan ??05/14/24 14:57:00 (A) [facility] Organism Coagulase negative Staphylococcus species(A) [facility] Organism Gram Positive Cocci in pairs(A) [facility] Toe 05/14/2024 11:3 3 AM [...] Sensitive Comment:Gentamicin i s not appropriate for Young-therapy. Coagulase Negative Staphylococcus species Levofloxacin MICROSCAN METHOD [...] Gennaro Meyers MD MICROBIOLOGY - GENE [facility] ORDERABLES [facility] [place] [address] * Surgical Pathology Report (05/14/2024 11:32 AM EDT) Surgical Pathology Report [id number] ? Location: L4WD; 0421; A The signing pathologist has (i) examined the relevant preparation(s) for the specimen(s) and (ii) rendered or confirmed the diagnosis(es). . ?Surgical Pathology DIAGNOSIS A. Right foot, 2nd toe, amputation: - ??Skin and soft tissue with ulceration and scarring. - ??Bone with reactive changes and mild chronic inflammation. Electronically signed by: ?Jacob Shelton MD, [facility] Verified: ??05/20/2024 11:25 Performed at: ??-[facility] Dept. of Pathology, [place] [address] Flattening Machine Operator: Polly Barnhart MD, AP, ??CLIA Certificate: [id number] SPECIMEN(S) SUBMITTED A - RIGHT 2ND TOE, [...] Sections/Processi ng: Blocks submitted for decalcification: A1-A2. Wildlife Enforcement Major sections in 2 cassettes as follows: ?A1-A2: ??Longitudinal section of digit ??cmk [facility] 05/14/2024 11:3 2 AM EDT Gennaro Meyers MD PATHOLOGY/CYTOLOGY ORDERABLES [facility] [place] [place] [address] * Specimen to Pathology (05/14/2024 11:32 AM EDT) AP Specimen 05/14/2024 11:3 2 AM EDT 05/14/2024 11:32 AM EDT Narrative [facility] - 05/14/2024 11:32 AM EDT Specimen requisition ordered. ??Separate Pathology report to follow Treva Diaz MD PATHOLOGY/[place] [address] * (ABNORMAL) POCT Glucose (05/14/2024 7:58 AM EDT) Pathologist [facility] Glucose, POC 203(H) 65 - 199 mg/dL [facility] Comment: Supplemental ranges: <140 mg/dL before meals <180 mg/dL all other times of the day Blood 05/14/2024 7:58 AM EDT 05/14/2024 7:58 AM EDT Treva Diaz MD POINT OF CARE TEST ORDERABLES Performing Organization Address City/[facility]/ZIP Co de Phone Number [facility] [place] [address] * (ABNORMAL) Differential, Automated (05/14/2024 5:01 AM EDT) [facility] Neutrophil % 80.5 % [facility] Neutrophil Absolute 12.45(H) 1.70 - 6.10 x10(3)/mc L [facility] Lymph % 5.5 % [facility] Lymphocytes Abs 0.8(L) 0.9 - 3.2 x10(3)/mc L [facility] Monocyte % 12.6 % [facility] Monocyte Abs 2.0(H) 0.3 - 0.9 x10(3)/mc L [facility] Eos % 0.3 % [facility] Eosinophils Abs 0.0 0.0 - 0.4 x10(3)/mc L [facility] Basophil % 0.2 % [facility] Baso Absolute 0.0 0.0 - 0.1 x10(3)/mc L [facility] Immature Gran % 0.90 % [facility] Comment: Immature granulocytes(IG's)percentage and absolute count will include metamyelocytes, myelocytes, and promyelocytes. Blood smears from CBCs yielding IG's will be scanned manually for concordance. If this scan disagrees with the automated IG or if promyelocytes are noted, a manual differential will be performed. Immature Gran Absolute 0.14(H) 0.00 - 0.04 x10(3)/mc L [facility] Blood 05/14/2024 5:01 AM EDT 05/14/2024 6:02 AM EDT Narrative Resulting Agency Comment Spec In Lab Carlotta Davis MD HEMATOLOGY OR DERABLES [facility] [place] [address] * (ABNORMAL) Hemogram (05/14/2024 5:01 AM EDT) White Blood Cell 15.5(H) 4.0 - 9.5 x10(3)/mc L [facility] Red Blood Cell 3.55(L) 4.58 - 5.54 x10(6)/mc L [facility] Hemoglobin 10.8(L) 13.7 - 16.5 g/dL [facility] Hematocrit 32.8(L) 40.5 - 48.5 % [facility] Mean Cell Volume 92.4 82.9 - 93.1 fL [facility] Mean Cell Hemoglobin 30.4 27.5 - 32.1 pg [facility] Mean Cell Hemoglobin Concentration 32.9 32.0 - 35.7 g/dL [facility] Platelet 190 145 - 357 x10(3)/mc L [facility] RDW Standard Deviation 53.2(H) 36.0 - 45.0 fL [facility] RDW coefficient of variation 15.6(H) 11.4 - 13.8 % [facility] Mean Platelet Volume 11.2 7.6 - 12.9 fL [facility] NRBC% auto 0.0 % [facility] NRBC Absolute 0.000 0.000 - 0.000 x10(3)/mc L [facility] Blood 05/14/2024 5:01 AM EDT 05/14/2024 6:02 AM EDT Narrative Resulting Agency Comment Spec In Lab Carlotta Davis MD HEMATOLOGY OR DERABLES Performing Organization Address [facility]/ZIP Co de Phone Number [facility] [place] [address] * Magnesium (05/14/2024 5:01 AM EDT) Magnesium 0.98 0.69 - 1.07 mmol/L [facility] Blood 05/14/2024 5:01 AM EDT 05/14/2024 6:02 AM EDT Narrative Resulting Agency Comment Spec In Lab Mary De La Fuente MD CHEMISTRY ORDERABL ES Performing Organization Address [facility] Co de Phone Number [facility] [place] [address] * Phosphorus (05/14/2024 5:01 AM EDT) Phosphorus 2.8 2.5 - 4.5 mg/dL [facility] Blood 05/14/2024 5:01 AM EDT 05/14/2024 6:02 AM EDT Narrative Resulting Agency Comment Spec In Lab Mary De La Fuente MD CHEMISTRY ORDERABL ES Performing Organization Address [facility] Co de Phone Number [facility] [address] * (ABNORMAL) Basic Metabolic Panel (non-fasting) (05/14/2024 5:01 AM EDT) Glucose 172 65 - 199 mg/dL [facility] Comment:Diabetes: >=200 mg/d L plus symptoms Blood Urea Nitrogen 46(H) 10 - 20 mg/dL [facility] Creatinine 1.56(H) 0.80 - 1.50 mg/dL [facility] Sodium 137 135 - 145 mmol/L [facility] Potassium 4.4 3.5 - 5.0 mmol/L [facility] Comment: Please note: ??Patients with WBC >100,000 may have falsely elevated Potassium levels. ??For accurate Potassium quantification in these patients send serum separator tube (gold top) for subsequent determinations. ??Contact the Clinical Chemistry Laboratory if there are any questions. Chloride 105 98 - 107 mmol/L [facility] Carbon Dioxide 22 22 - 31 mmol/L [facility] Anion Gap 10 5 - 15 mmol/L [facility] Calcium 8.7 8.5 - 10.5 mg/dL [facility] Est Glomerular Filtration Rate 47(L) >=60 mL/min/1. 73 m?? [facility] Comment: This patient's estimated GFR [...] De La Fuente MD CHEMISTRY ORDERABL ES [facility] [place] [address] * Vancomycin Level, Random (05/14/2024 5:01 AM EDT) Vancomycin, Random 13.5 mg/L [facility] Comment: This level is for determination of the patient's vancomycin rzdt-nwuqy-ybi-curve (AUC) value. Contact the inpatient pharmacy for interpretation. Blood 05/14/2024 5:01 AM EDT 05/14/2024 6:02 AM EDT Treva Diaz MD CHEMISTRY ORDERABL ES Performing Organization Address City/[facility]/ZIP Co de Phone Number [facility] [place] [address] * POCT Glucose (05/13/2024 8:41 PM EDT) Glucose, POC 179 65 - 199 mg/dL [facility] Comment: Supplemental ranges: <140 mg/dL before meals <180 mg/dL all other times of the day Blood 05/13/2024 8:41 PM EDT 05/13/2024 8:41 PM EDT Treva Diaz MD POINT OF CARE TEST ORDERABLES Performing Organization Address [facility]/ZIP Co de Phone Number [facility] [place] [address] * POCT Glucose (05/13/2024 6:06 PM EDT) Glucose, POC 135 65 - 199 mg/dL [facility] Comment: Supplemental ranges: <140 mg/dL before meals <180 mg/dL all other times of the day Blood 05/13/2024 6:06 PM EDT 05/13/2024 6:06 PM EDT Treva Diaz MD POINT OF CARE TEST ORDERABLES Performing Organization Address City/[facility]/ZIP Co de Phone Number [facility] [address] * POCT Glucose (05/13/2024 11:12 AM EDT) Glucose, POC 163 65 - 199 mg/dL [facility] Comment: Supplemental ranges: <140 mg/dL before meals <180 mg/dL all other times of the day Blood 05/13/2024 11:1 2 AM EDT 05/13/2024 11:12 AM EDT Treva Diaz MD POINT OF CARE TEST ORDERABLES Performing Organization Address [facility] Co de Phone Number [facility] [address] * POCT Glucose (05/13/2024 7:47 AM EDT) [facility] Glucose, POC 194 65 - 199 mg/dL [facility] Comment: Supplemental ranges: <140 mg/dL before meals <180 mg/dL all other times of the day Blood 05/13/2024 7:47 AM EDT 05/13/2024 7:47 AM EDT Treva Diaz MD POINT OF CARE TEST ORDERABLES Performing Organization Address [facility] Co de Phone Number [facility] [place] [address] * Scan, Peripheral Blood (05/13/2024 5:29 AM EDT) [facility] Plat estimate Normal [facility] RBC Morphology Abnormal [facility] Sofía Cells 1-5 /HPF [facility] Plat, Giant Less than 1 /HPF [facility] Blood 05/13/2024 5:29 AM EDT 05/13/2024 5:49 AM EDT Narrative Resulting Agency Comment Spec In Lab Carlotta Davis MD HEMATOLOGY OR DERABLES Performing Organization Address [facility] Co de Phone Number [facility] [place] [address] * (ABNORMAL) Differential, Automated (05/13/2024 5:29 AM EDT) [facility] Neutrophil % 81.8 % [facility] Neutrophil Absolute 12.66(H) 1.70 - 6.10 x10(3)/mc L [facility] Lymph % 5.0 % [facility] Lymphocytes Abs 0.8(L) 0.9 - 3.2 x10(3)/ L [facility] Monocyte % 12.3 % [facility] Monocyte Abs 1.9(H) 0.3 - 0.9 x10(3)/[facility] Eos % 0.2 % [facility] Eosinophils Abs 0.0 0.0 - 0.4 x10(3)/[facility]OR[facility] Basophil % 0.1 % [facility] Baso Absolute 0.0 0.0 - 0.1 x10(3)/[facility] Immature Gran % 0.60 % [facility] Comment: Immature granulocytes(IG's)percentage and absolute count will include metamyelocytes, myelocytes, and promyelocytes. Blood smears from CBCs yielding IG's will be scanned manually for concordance. If this scan disagrees with the automated IG or if promyelocytes are noted, a manual differential will be performed. Immature Gran Absolute 0.09(H) 0.00 - 0.04 x10(3)/[facility] Blood 05/13/2024 5:29 AM EDT 05/13/2024 5:49 AM EDT Narrative Resulting Agency Comment Spec In Lab Carlotta Davis MD HEMATOLOGY OR DERABLES [facility] [place] [address] * (ABNORMAL) Hemogram (05/13/2024 5:29 AM EDT) White Blood Cell 15.5(H) 4.0 - 9.5 x10(3)/[facility] Red Blood Cell 3.64(L) 4.58 - 5.54 x10(6)/mc L [facility] Hemoglobin 10.9(L) 13.7 - 16.5 g/dL [facility] Hematocrit 33.3(L) 40.5 - 48.5 % [facility] Mean Cell Volume 91.5 82.9 - 93.1 fL [facility] Mean Cell Hemoglobin 29.9 27.5 - 32.1 pg [facility] Mean Cell Hemoglobin Concentration 32.7 32.0 - 35.7 g/dL [facility] Platelet 186 145 - 357 x10(3)/mc L [facility] RDW Standard Deviation 53.0(H) 36.0 - 45.0 fL [facility] RDW coefficient of variation 15.8(H) 11.4 - 13.8 % [facility] Mean Platelet Volume 11.8 7.6 - 12.9 fL [facility] NRBC% auto 0.0 % [facility] NRBC Absolute 0.000 0.000 - 0.000 x10(3)/mc L [facility] Blood 05/13/2024 5:29 AM EDT 05/13/2024 5:49 AM EDT Narrative Resulting Agency Comment Spec In Lab Carlotta Davis MD HEMATOLOGY OR DERABLES Performing Organization Address City/[facility]/ZIP Co de Phone Number [facility] [address] * Magnesium (05/13/2024 5:29 AM EDT) Magnesium 0.99 0.69 - 1.07 mmol/L [facility] Blood 05/13/2024 5:29 AM EDT 05/13/2024 5:49 AM EDT Narrative Resulting Agency Comment Spec In Lab Mary De La Fuente MD CHEMISTRY ORDERABL ES Performing Organization Address City/[facility]/ZIP Co de Phone Number [facility] [address] * Phosphorus (05/13/2024 5:29 AM EDT) Phosphorus 2.7 2.5 - 4.5 mg/dL [facility] Blood 05/13/2024 5:29 AM EDT 05/13/2024 5:49 AM EDT Narrative Resulting Agency Comment Spec In Lab Mary De La Fuente MD CHEMISTRY ORDERABL ES [facility] [address] * (ABNORMAL) Basic Metabolic Panel (non-fasting) (05/13/2024 5:29 AM EDT) Glucose 166 65 - 199 mg/dL [facility] Comment:Diabetes: >=200 mg/d L plus symptoms Blood Urea Nitrogen 57(H) 10 - 20 mg/dL [facility] Creatinine 1.53(H) 0.80 - 1.50 mg/dL [facility] Sodium 137 135 - 145 mmol/L [facility] Potassium 4.4 3.5 - 5.0 mmol/L [facility] Comment: Please note: ??Patients with WBC >100,000 may have falsely elevated Potassium levels. ??For accurate Potassium quantification in these patients send serum separator tube (gold top) for subsequent determinations. ??Contact the Clinical Chemistry Laboratory if there are any questions. Chloride 104 98 - 107 mmol/L [facility] Carbon Dioxide 24 22 - 31 mmol/L [facility] Anion Gap 9 5 - 15 mmol/L [facility] Calcium 8.7 8.5 - 10.5 mg/dL [facility] Est Glomerular Filtration Rate 49(L) >=60 mL/min/1. 73 m?? [facility] Comment: This patient's estimated GFR [...] De La Fuente MD CHEMISTRY ORDERABL ES [facility] [place] [address] * POCT Glucose (05/12/2024 11:46 PM EDT) Glucose, POC 165 65 - 199 mg/dL [facility] Comment: Supplemental ranges: <140 mg/dL before meals <180 mg/dL all other times of the day Blood 05/12/2024 11:4 6 PM EDT 05/12/2024 11:46 PM EDT Treva Diaz MD POINT OF CARE TEST ORDERABLES Performing Organization Address City/[facility]/ZIP Co de Phone Number [facility] [place] [address] * POCT Glucose (05/12/2024 8:36 PM EDT) Glucose, POC 164 65 - 199 mg/dL [facility] Comment: Supplemental ranges: <140 mg/dL before meals <180 mg/dL all other times of the day Blood 05/12/2024 8:36 PM EDT 05/12/2024 8:36 PM EDT Treva Diaz MD POINT OF CARE TEST ORDERABLES [facility] [place] [address] * POCT Glucose (05/12/2024 5:38 PM EDT) Glucose, POC 175 65 - 199 mg/dL [facility] Comment: Supplemental ranges: <140 mg/dL before meals <180 mg/dL all other times of the day Blood 05/12/2024 5:38 PM EDT 05/12/2024 5:38 PM EDT Treva Diaz MD POINT OF CARE TEST ORDERABLES [facility] [place] [address] * Vancomycin Level, Random (05/12/2024 2:10 PM EDT) Vancomycin, Random 22.3 mg/L [facility] Comment: This level is for determination of the patient's vancomycin mnfj-gicno-vwb-curve (AUC) value. Contact the inpatient pharmacy for interpretation. Blood 05/12/2024 2:10 PM EDT 05/12/2024 2:23 PM EDT Treva Diaz MD CHEMISTRY ORDERABL ES Performing Organization Address City/[facility] Co de Phone Number [facility] [place] [address] * POCT Glucose (05/12/2024 1:42 PM EDT) Glucose, POC 168 65 - 199 mg/dL [facility] Comment: Supplemental ranges: <140 mg/dL before meals <180 mg/dL all other times of the day Blood 05/12/2024 1:42 PM EDT 05/12/2024 1:42 PM EDT Treva Diaz MD POINT OF CARE TEST ORDERABLES Performing Organization Address City/[facility]/ZIP Co de Phone Number [facility] [place] [address] * Duplex for DVT, Leg, Unilat (05/12/2024 10:19 AM EDT) Pathologist [facility] VB Text Report Department: Vascular Surgery Lab Patient: [id number] (JOSSY SHANKS) CPT: 39665 Referring Physician: MARY DE LA FUENTE ?? [...] * POCT Glucose (05/12/2024 9:00 AM EDT) [facility] Glucose, POC 161 65 - 199 mg/dL [facility] Comment: Supplemental ranges: <140 mg/dL before meals <180 mg/dL all other times of the day Blood 05/12/2024 9:00 AM EDT 05/12/2024 9:00 AM EDT Treva Diaz MD POINT OF CARE TEST ORDERABLES [facility] [place] [address] * (ABNORMAL) Sedimentation rate (05/12/2024 4:45 AM EDT) Sedimentation Rate Automated >119(H) 3 - 46 mm/hr [facility] Comment: Effective September 24, 2019 [...] MD HEMATOLOGY ORDERABLE S Performing Organization Address [facility] Co de Phone Number [facility] [place] [address] * (ABNORMAL) CRP, acute inflammation (05/12/2024 4:45 AM EDT) [facility] C-Reactive Protein 152.4(H) <=4.9 mg/L [facility] Blood Venous Draw / Unknown 05/12/2024 4:45 AM EDT 05/12/2024 5:12 AM EDT Narrative Resulting Agency Comment Spec In Lab Juan José Harrison MD CHEMISTRY ORDERABLES Performing Organization Address [facility] Co de Phone Number [facility] [place] [address] * (ABNORMAL) Differential, Automated (05/12/2024 4:45 AM EDT) Neutrophil % 87.9 % [facility] Neutrophil Absolute 17.31(H) 1.70 - 6.10 x10(3)/mc L [facility] Lymph % 3.9 % [facility] Lymphocytes Abs 0.8(L) 0.9 - 3.2 x10(3)/mc L [facility] Monocyte % 7.4 % [facility] Monocyte Abs 1.4(H) 0.3 - 0.9 x10(3)/mc L [facility] Eos % 0.0 % [facility] Eosinophils Abs 0.0 0.0 - 0.4 x10(3)/ L [facility] Basophil % 0.1 % [facility] Baso Absolute 0.0 0.0 - 0.1 x10(3)/ L [facility] Immature Gran % 0.70 % [facility] Comment: Immature granulocytes(IG's)percentage and absolute count will include metamyelocytes, myelocytes, and promyelocytes. Blood smears from CBCs yielding IG's will be scanned manually for concordance. If this scan disagrees with the automated IG or if promyelocytes are noted, a manual differential will be performed. Immature Gran Absolute 0.14(H) 0.00 - 0.04 x10(3)/[facility] Blood 05/12/2024 4:45 AM EDT 05/12/2024 5:06 AM EDT Narrative Resulting Agency Comment Spec In Lab Carlotta Davis MD HEMATOLOGY OR DERABLES Performing Organization Address City/State/[facility] Co de Phone Number [facility] [place] [address] * (ABNORMAL) Hemogram (05/12/2024 4:45 AM EDT) White Blood Cell 19.7(H) 4.0 - 9.5 x10(3)/ L [facility] Red Blood Cell 3.58(L) 4.58 - 5.54 x10(6)/ L [facility] Hemoglobin 10.9(L) 13.7 - 16.5 g/dL [facility] Hematocrit 33.1(L) 40.5 - 48.5 % [facility] Mean Cell Volume 92.5 82.9 - 93.1 fL [facility] Mean Cell Hemoglobin 30.4 27.5 - 32.1 pg [facility] Mean Cell Hemoglobin Concentration 32.9 32.0 - 35.7 g/dL [facility] Platelet 165 145 - 357 x10(3)/ L [facility] RDW Standard Deviation 53.2(H) 36.0 - 45.0 fL [facility] RDW coefficient of variation 15.7(H) 11.4 - 13.8 % [facility] Mean Platelet Volume 12.1 7.6 - 12.9 fL [facility] NRBC% auto 0.0 % [facility] NRBC Absolute 0.000 0.000 - 0.000 x10(3)/mc L [facility] Blood 05/12/2024 4:45 AM EDT 05/12/2024 5:06 AM EDT Narrative Resulting Agency Comment Spec In Lab Carlotta Davis MD HEMATOLOGY OR DERABLES Performing Organization Address [facility] [place] [address] * Magnesium (05/12/2024 4:45 AM EDT) Magnesium 1.07 0.69 - 1.07 mmol/L [facility] Blood 05/12/2024 4:45 AM EDT 05/12/2024 5:06 AM EDT Narrative Resulting Agency Comment Spec In Lab Mary De La Fuente MD CHEMISTRY ORDERABL ES Performing Organization Address [facility] Phone Number [facility] [address] * Phosphorus (05/12/2024 4:45 AM EDT) Phosphorus 2.7 2.5 - 4.5 mg/dL [facility] Blood 05/12/2024 4:45 AM EDT 05/12/2024 5:06 AM EDT Narrative Resulting Agency Comment Spec In Lab Mary De La Fuente MD CHEMISTRY ORDERABL ES Performing Organization Address [facility] Co de Phone Number [facility] [place] [address] * (ABNORMAL) Basic Metabolic Panel (non-fasting) (05/12/2024 4:45 AM EDT) Glucose 156 65 - 199 mg/dL [facility] Comment:Diabetes: >=200 mg/d L plus symptoms Blood Urea Nitrogen 72(H) 10 - 20 mg/dL [facility] Creatinine 2.03(H) 0.80 - 1.50 mg/dL [facility] Sodium 135 135 - 145 mmol/L [facility] Potassium 4.5 3.5 - 5.0 mmol/L [facility] Comment: Please note: ??Patients with WBC >100,000 may have falsely elevated Potassium levels. ??For accurate Potassium quantification in these patients send serum separator tube (gold top) for subsequent determinations. ??Contact the Clinical Chemistry Laboratory if there are any questions. Chloride 101 98 - 107 mmol/L [facility] Carbon Dioxide 24 22 - 31 mmol/L [facility] Anion Gap 10 5 - 15 mmol/L [facility] Calcium 8.4(L) 8.5 - 10.5 mg/dL [facility] Est Glomerular Filtration Rate 35(L) >=60 mL/min/1. 73 m?? [facility] Comment: This patient's estimated GFR [...] De LaF uente MD CHEMISTRY ORDERABL ES [facility] [place] [address] * ANGY, legs, multiple levels (05/12/2024 3:22 AM EDT) VB Text Report Department: Vascular Surgery Lab Patient: [id number] (JOSSY SHANKS) CPT: 33655 Referring Physician: THO DICKSON ?? Phone: Indications: [...] Glucose, POC 201(H) 65 - 199 mg/dL [facility] Comment: Supplemental ranges: <140 mg/dL before meals <180 mg/dL all other times of the day Blood 05/11/2024 8:14 PM EDT 05/11/2024 8:14 PM EDT Treva Diaz MD POINT OF CARE TEST ORDERABLES Performing Organization Address [facility] Co de Phone Number [facility] [place] [address] * Vancomycin Level, Random (05/11/2024 8:10 PM EDT) Vancomycin, Random 21.7 mg/L [facility] Comment: This level is for determination of the patient's vancomycin kkdl-muhqw-sxu-curve (AUC) value. Contact the inpatient pharmacy for interpretation. Blood 05/11/2024 8:10 PM EDT 05/11/2024 8:32 PM EDT Treva Diaz MD CHEMISTRY ORDERABL ES Performing Organization Address [facility] Co de Phone Number [facility] [place] [address] * POCT Glucose (05/11/2024 4:34 PM EDT) Glucose, POC 197 65 - 199 mg/dL [facility] Comment: Supplemental ranges: <140 mg/dL before meals <180 mg/dL all other times of the day Blood 05/11/2024 4:34 PM EDT 05/11/2024 4:34 PM EDT Treva Diaz MD POINT OF CARE TEST ORDERABLES Performing Organization Address [facility] Co de Phone Number [facility] [place] [address] * (ABNORMAL) POCT Glucose (05/11/2024 11:47 AM EDT) Glucose, POC 255(H) 65 - 199 mg/dL [facility] Comment: Supplemental ranges: <140 mg/dL before meals <180 mg/dL all other times of the day Blood 05/11/2024 11:4 7 AM EDT 05/11/2024 11:47 AM EDT Treva Diaz MD POINT OF CARE TEST ORDERABLES Performing Organization Address City/[facility]/ZIP Co de Phone Number [facility] [place] [address] * (ABNORMAL) POCT Glucose (05/11/2024 6:57 AM EDT) Pathologist [facility] Glucose, POC 200(H) 65 - 199 mg/dL [facility] Comment: Supplemental ranges: <140 mg/dL before meals <180 mg/dL all other times of the day Blood 05/11/2024 6:57 AM EDT 05/11/2024 6:57 AM EDT Treva Diaz MD POINT OF CARE TEST ORDERABLES Performing Organization Address City/[facility] Co de Phone Number [facility] [place] [address] * (ABNORMAL) Differential, Automated (05/11/2024 2:00 AM EDT) [facility] Neutrophil % 85.8 % [facility] Neutrophil Absolute 22.16(H) 1.70 - 6.10 x10(3)/mc L [facility] Lymph % 1.5 % [facility] Lymphocytes Abs 0.4(L) 0.9 - 3.2 x10(3)/mc L [facility] Monocyte % 4.9 % [facility] Monocyte Abs 1.3(H) 0.3 - 0.9 x10(3)/mc L [facility] Eos % 0.0 % [facility] Eosinophils Abs 0.0 0.0 - 0.4 x10(3)/mc L [facility] Basophil % 0.1 % [facility] Baso Absolute 0.0 0.0 - 0.1 x10(3)/mc L [facility] Immature Gran % 7.70 % [facility] Comment: Immature granulocytes(IG's)percentage and absolute count will include metamyelocytes, myelocytes, and promyelocytes. Blood smears from CBCs yielding IG's will be scanned manually for concordance. If this scan disagrees with the automated IG or if promyelocytes are noted, a manual differential will be performed. Immature Gran Absolute 1.98(H) 0.00 - 0.04 x10(3)/mc L [facility] Blood 05/11/2024 2:00 AM EDT 05/11/2024 2:07 AM EDT Narrative Resulting Agency Comment Spec In Lab Carlotta Davis MD HEMATOLOGY OR DERABLES [facility] [place] [address] * (ABNORMAL) Hemogram (05/11/2024 2:00 AM EDT) White Blood Cell 25.8(H) 4.0 - 9.5 x10(3)/mc L [facility] Red Blood Cell 3.64(L) 4.58 - 5.54 x10(6)/mc L [facility] Hemoglobin 10.9(L) 13.7 - 16.5 g/dL [facility] Hematocrit 32.5(L) 40.5 - 48.5 % [facility] Mean Cell Volume 89.3 82.9 - 93.1 fL [facility] Mean Cell Hemoglobin 29.9 27.5 - 32.1 pg [facility] Mean Cell Hemoglobin Concentration 33.5 32.0 - 35.7 g/dL [facility] Platelet 141(L) 145 - 357 x10(3)/mc L [facility] RDW Standard Deviation 51.2(H) 36.0 - 45.0 fL [facility] RDW coefficient of variation 15.6(H) 11.4 - 13.8 % [facility] Mean Platelet Volume 12.9 7.6 - 12.9 fL [facility] NRBC% auto 0.0 % [facility] NRBC Absolute 0.000 0.000 - 0.000 x10(3)/mc L [facility] Blood 05/11/2024 2:00 AM EDT 05/11/2024 2:07 AM EDT Narrative Resulting Agency Comment Spec In Lab Carlotta Davis MD HEMATOLOGY OR DERABLES Performing Organization Address City/[facility]/ZIP Co de Phone Number [facility] [place] [address] * Magnesium (05/11/2024 2:00 AM EDT) Magnesium 1.01 0.69 - 1.07 mmol/L [facility] Blood 05/11/2024 2:00 AM EDT 05/11/2024 2:07 AM EDT Narrative Resulting Agency Comment Spec In Lab Mary De La Fuente MD CHEMISTRY ORDERABL ES Performing Organization Address [facility] Co de Phone Number [facility] [place] [address] * Phosphorus (05/11/2024 2:00 AM EDT) Phosphorus 4.0 2.5 - 4.5 mg/dL [facility] Blood 05/11/2024 2:00 AM EDT 05/11/2024 2:07 AM EDT Narrative Resulting Agency Comment Spec In Lab Mary De La Fuente MD CHEMISTRY ORDERABL ES Performing Organization Address [facility] Co de Phone Number [facility] [place] [address] * (ABNORMAL) Basic Metabolic Panel (non-fasting) (05/11/2024 2:00 AM EDT) Glucose 212(H) 65 - 199 mg/dL [facility] Comment:Diabetes: >=200 mg/d L plus symptoms Blood Urea Nitrogen 72(H) 10 - 20 mg/dL [facility] Creatinine 2.58(H) 0.80 - 1.50 mg/dL [facility] Comment:result rechecked-HN Sodium 136 135 - 145 mmol/L [facility] Potassium 4.7 3.5 - 5.0 mmol/L [facility] Comment: Please note: ??Patients with WBC >100,000 may have falsely elevated Potassium levels. ??For accurate Potassium quantification in these patients send serum separator tube (gold top) for subsequent determinations. ??Contact the Clinical Chemistry Laboratory if there are any questions. Chloride 100 98 - 107 mmol/L [facility] Carbon Dioxide 24 22 - 31 mmol/L [facility] Anion Gap 12 5 - 15 mmol/L [facility] Calcium 8.3(L) 8.5 - 10.5 mg/dL [facility] Est Glomerular Filtration Rate 26(L) >=60 mL/min/1. 73 m?? [facility] Comment: This patient's estimated GFR [...] De La Fuente MD CHEMISTRY ORDERABL ES [facility] [place] [address] * Vancomycin Level, Random (05/11/2024 2:00 AM EDT) Vancomycin, Random 21.4 mg/L [facility] Comment: This level is for determination of the patient's vancomycin nppo-hnmsw-vhd-curve (AUC) value. Contact the inpatient pharmacy for interpretation. Blood 05/11/2024 2:00 AM EDT 05/11/2024 2:07 AM EDT Mary De La Fuente MD CHEMISTRY ORDERABL ES Performing Organization Address City/[facility]/ZIP Co de Phone Number [facility] [place] [address] * (ABNORMAL) POCT Glucose (05/10/2024 11:40 PM EDT) Glucose, POC 230(H) 65 - 199 mg/dL [facility] Comment: Supplemental ranges: <140 mg/dL before meals <180 mg/dL all other times of the day Blood 05/10/2024 11:4 0 PM EDT 05/10/2024 11:40 PM EDT Treva Diaz MD POINT OF CARE TEST ORDERABLES Performing Organization Address [facility] Co de Phone Number [facility] [place] [address] * POCT Glucose (05/10/2024 4:09 PM EDT) Glucose, POC 189 65 - 199 mg/dL [facility] Comment: Supplemental ranges: <140 mg/dL before meals <180 mg/dL all other times of the day Blood 05/10/2024 4:09 PM EDT 05/10/2024 4:09 PM EDT Treva Diaz MD POINT OF CARE TEST ORDERABLES Performing Organization Address City/[facility] Co de Phone Number [facility] [place] [address] * POCT Glucose (05/10/2024 12:11 PM EDT) Glucose, POC 185 65 - 199 mg/dL [facility] Comment: Supplemental ranges: <140 mg/dL before meals <180 mg/dL all other times of the day Blood 05/10/2024 12:1 1 PM EDT 05/10/2024 12:11 PM EDT Mary De La Fuente MD POINT OF CARE TEST ORDERABLES Performing Organization Address City/[facility]/ZIP Co de Phone Number [facility] [place] [address] * Vancomycin Level, Random (05/10/2024 12:00 PM EDT) Vancomycin, Random 15.5 mg/L [facility] Comment: This level is for determination of the patient's vancomycin cavc-zeyhc-hdh-curve (AUC) value. Contact the inpatient pharmacy for interpretation. Blood 05/10/2024 12:0 0 PM EDT 05/10/2024 12:21 PM EDT Tho Dickson MD CHEMISTRY ORDERABLES Performing Organization Address [facility] Co de Phone Number [facility] [place] [address] * POCT Glucose (05/10/2024 8:09 AM EDT) Glucose, POC 195 65 - 199 mg/dL [facility] Comment: Supplemental ranges: <140 mg/dL before meals <180 mg/dL all other times of the day Blood 05/10/2024 8:09 AM EDT 05/10/2024 8:09 AM EDT Mary De La Fuente MD POINT OF CARE TEST ORDERABLES Performing Organization Address City/[facility] Co de Phone Number [facility] [place] [address] * CK (05/10/2024 6:55 AM EDT) Creatine Kinase 58 0 - 200 unit/L [facility] Blood Venous Draw / Unknown 05/10/2024 6:55 AM EDT 05/10/2024 7:41 AM EDT Narrative Resulting Agency Comment Spec In Lab Emmanuel Corey DO CHEMISTRY ORDERABLES Performing Organization Address [facility]/ZIP Co de Phone Number [facility] [place] [address] * (ABNORMAL) Phosphorus (05/10/2024 6:55 AM EDT) [facility] Phosphorus 5.1(H) 2.5 - 4.5 mg/dL [facility] Blood 05/10/2024 6:55 AM EDT 05/10/2024 6:59 AM EDT Narrative Resulting Agency Comment Spec In Lab Tho Dickson MD CHEMISTRY ORDERABLES Performing Organization Address City/[facility]/ZIP Co de Phone Number [facility] [place] [address] * (ABNORMAL) Basic Metabolic Panel (non-fasting) (05/10/2024 6:55 AM EDT) [facility] Glucose 193 65 - 199 mg/dL [facility] Comment:Diabetes: >=200 mg/d L plus symptoms Blood Urea Nitrogen 69(H) 10 - 20 mg/dL [facility] Creatinine 3.75(H) 0.80 - 1.50 mg/dL [facility] Sodium 128(L) 135 - 145 mmol/L [facility] Potassium 5.0 3.5 - 5.0 mmol/L [facility] Comment: Please note: ??Patients with WBC >100,000 may have falsely elevated Potassium levels. ??For accurate Potassium quantification in these patients send serum separator tube (gold top) for subsequent determinations. ??Contact the Clinical Chemistry Laboratory if there are any questions. Chloride 93(L) 98 - 107 mmol/L [facility] Carbon Dioxide 23 22 - 31 mmol/L [facility] Anion Gap 12 5 - 15 mmol/L [facility] Calcium 8.6 8.5 - 10.5 mg/dL [facility] Est Glomerular Filtration Rate 17(L) >=60 mL/min/1. 73 m?? [facility] Comment: This patient's estimated GFR [...] In Lab Tho Dickson MD CHEMISTRY ORDERABLES [facility] [place] [address] * Lactate, whole blood, send to lab ([facility]) (05/10/2024 6:55 AM EDT) Lactate WB 1.7 0.5 - 2.2 mmol/L [facility] Blood 05/10/2024 6:55 AM EDT 05/10/2024 7:00 AM EDT Narrative Resulting Agency Comment Spec In Lab Tho Dickson MD CHEMISTRY ORDERABLES [facility] [place] [address] * MRI Foot wwo Contrast Right (05/10/2024 5:51 AM EDT) WORKSTATION ID [id number] [facility] Anatomical Region Laterality Modality Foot Right Magnetic [...] who have questions please contact the health career services manager that requested your imaging first. [...] patients who have questions please contactthe health career services manager that requested your imaging first. Tho Dickson MD IMG MRI ORDERABLES * Creatinine, urine, random (05/10/2024 4:15 AM EDT) Creatinine, Urine 106 mg/dL [facility] Urine 05/10/2024 4:15 AM EDT 05/10/2024 4:23 AM EDT Narrative Resulting Agency Comment Spec In Lab Tho Dickson MD URINE ORDERABLES Performing Organization Address [facility]/ZIP Co de Phone Number [facility] [address] * Sodium, urine, random (05/10/2024 4:15 AM EDT) Sodium, Urine <20 mmol/L [facility] Urine 05/10/2024 4:15 AM EDT 05/10/2024 4:23 AM EDT Narrative Resulting Agency Comment Spec In Lab Tho Dickson MD URINE ORDERABLES Performing Organization Address City/[facility]/ZIP Co de Phone Number [facility] [address] * Urea nitrogen, urine, random (05/10/2024 4:15 AM EDT) Urea Nitrogen, Urine 580 mg/dL [facility] Urine 05/10/2024 4:15 AM EDT 05/10/2024 4:23 AM EDT Narrative Resulting Agency Comment Spec In Lab Tho Dickson MD URINE ORDERABLES Performing Organization Address [facility]/ZIP Co de Phone Number [facility] [place] [address] * (ABNORMAL) Skin/Superficial Wound Culture Toe (05/10/2024 2:56 AM EDT) Skin/Superfic ial Wound Culture Rare mixed bacterial morphotypes suggestive of normal cutaneous armani including Rare Gram Negative Rods (A) [facility] Gram Stain Many Neutrophils seen Few Gram Positive Cocci seen (A) [facility] Organism Gram Negative Rods(A) [facility] Organism Gram Positive Cocci(A) [facility] Superficial Wound TOE STRUCTURE / Unknown 05/10/2024 2:56 AM EDT 05/10/2024 5:18 AM EDT Comment:Right toe wound Narrative Resulting Agency Comment Spec In Lab Tho Dickson MD MICROBIOLOGY - GENER AL ORDERABLES Performing Organization Address [facility]/ZIP Co de Phone Number [facility] [address] * (ABNORMAL) Urinalysis without microscopic (05/10/2024 2:42 AM EDT) Glucose, Urine Dipstick Negative Negative mg/dL [facility] Protein, Urine Dipstick 30(A) Negative mg/dL [facility] Bilirubin, Urine Dipstick Negative Negative mg/dL [facility] Comment: Clinical correlation required for positive Urine Bilirubin results as false positive may occur with some drugs and drug related products. If a false positive is suspected a serum total bilirubin should be considered if clinically indicated. Urobilinogen, Urine Dipstick Normal Normal mg/dL [facility] pH, Urn (dipstick) 5.5 5.0 - 8.0 [facility] Blood, Urine Dipstick Large(A) Negative mg/dL [facility] Ketone, Urine Dipstick Negative Negative mg/dL [facility] Nitrite, Urine Dipstick Negative Negative [facility] Leukocytes, Urine Dipstick Small(A) Negative [facility] Appearance, Urine Dipstick Cloudy(A) Clear [facility] Specific [place] Urine Automated 1.017 1.005 - 1.030 [facility] Color, Urine Dipstick [place](A) Yellow [facility] Urine 05/10/2024 2:42 AM EDT 05/10/2024 2:57 AM EDT Narrative Resulting Agency Comment Spec In Lab Tho Dickson MD URINE ORDERABLES [facility] [place] [address] * XR Chest One View (05/10/2024 2:37 AM EDT) WORKSTATION ID [id number] RAD Anatomical Region Laterality Modality Chest N/A Digital Radiogra phy Impressions 05/10/2024 3:27 AM EDT Bibasilar atelectasis. Thank you for letting us participate in the care of this patient. ??If you are a health care provider and have any questions regarding this report, please contact the number below. ??For patients who have questions please contact the health career services manager that requested your imaging first. [...] patients who have questions please contactthe health career services manager that requested your imaging first. Tho Dickson MD IMG DX ORDERABLES * Blood culture (05/10/2024 2:32 AM EDT) Blood Culture No growth at 5 days. [facility] Blood STRUCTURE OF RIGHT HAND / Unknown 05/10/2024 2:32 AM EDT 05/10/2024 4:17 AM EDT Narrative Resulting Agency Comment Spec In Lab Tho Dickson MD MICROBIOLOGY - BLOOD ORDERABLES [facility] [place] [address] * (ABNORMAL) POCT Glucose (05/10/2024 2:30 AM EDT) [facility] Glucose, POC 201(H) 65 - 199 mg/dL [facility] Comment: Supplemental ranges: <140 mg/dL before meals <180 mg/dL all other times of the day Blood 05/10/2024 2:30 AM EDT 05/10/2024 2:30 AM EDT Tho Dickson MD POINT OF CARE TEST O RDERABLES Performing Organization Address City/[facility]/ZIP Co de Phone Number [facility] [place] [address] * Vancomycin Level, Random (05/10/2024 2:20 AM EDT) [facility] Vancomycin, Random 26.9 mg/L [facility] Comment: This level is for determination of the patient's vancomycin bqyj-wkfws-fxv-curve (AUC) value. Contact the inpatient pharmacy for interpretation. Blood Venous Draw / Unknown 05/10/2024 2:20 AM EDT 05/10/2024 2:38 AM EDT Tho Dickson MD CHEMISTRY ORDERABLES Performing Organization Address City/[facility]/ZIP Co de Phone Number [facility] [place] [address] * Scan, Peripheral Blood (05/10/2024 2:20 AM EDT) [facility] Plat estimate Normal [facility] RBC Morphology Abnormal [facility] Ovalocytes 1-5 /HPF [facility] [place] Cells 1-5 /HPF [facility] Plat, Giant Less than 1 /HPF [facility] Blood 05/10/2024 2:20 AM EDT 05/10/2024 2:36 AM EDT Narrative Resulting Agency Comment Spec In Lab Anita Camacho MD HEMATOLOGY ORDERABLE S Performing Organization Address City/[facility]/ZIP Co de Phone Number [facility] [place] [address] * Type and Screen Validity (05/10/2024 2:20 AM EDT) T&S only valid at [facility] Comment:This Type and Screen result is only valid at the [facility] Blood 05/10/2024 2:20 AM EDT 05/10/2024 2:49 AM EDT Narrative Resulting Agency Comment Spec In Lab Anita Camacho MD BLOOD BANK LAB ORDER ANGELIQUE Performing Organization Address City/[facility]/ZIP Co de Phone Number [facility] [place] [address] * ABORH Recheck Status (05/10/2024 2:20 AM EDT) [facility] ABORH Recheck Order Order Placed [facility] ABORH Type Recheck Completed [facility] Blood 05/10/2024 2:20 AM EDT 05/10/2024 2:49 AM EDT Narrative Resulting Agency Comment Spec In Lab Anita Camacho MD BLOOD BANK LAB ORDER ANGELIQUE Performing Organization Address City/[facility]/ZIP Co de Phone Number [facility] [place] [address] * (ABNORMAL) Differential, Automated (05/10/2024 2:20 AM EDT) Neutrophil % 89.2 % [facility] Neutrophil Absolute 25.39(H) 1.70 - 6.10 x10(3)/mc L [facility] Lymph % 1.2 % [facility] Lymphocytes Abs 0.4(L) 0.9 - 3.2 x10(3)/mc L [facility] Monocyte % 2.9 % [facility] Monocyte Abs 0.8 0.3 - 0.9 x10(3)/[facility] Eos % 0.0 % [facility] Eosinophils Abs 0.0 0.0 - 0.4 x10(3)/[facility] Basophil % 0.2 % [facility] Baso Absolute 0.1 0.0 - 0.1 x10(3)/[facility] Immature Gran % 6.50 % [facility] Comment: Immature granulocytes(IG's)percentage and absolute count will include metamyelocytes, myelocytes, and promyelocytes. Blood smears from CBCs yielding IG's will be scanned manually for concordance. If this scan disagrees with the automated IG or if promyelocytes are noted, a manual differential will be performed. Immature Gran Absolute 1.85(H) 0.00 - 0.04 x10(3)/[facility] Blood 05/10/2024 2:20 AM EDT 05/10/2024 2:36 AM EDT Narrative Resulting Agency Comment Spec In Lab Anita Camacho MD HEMATOLOGY ORDERABLE S Performing Organization Address City/State/[facility] Co de Phone Number [facility] [place] [address] * (ABNORMAL) Hemogram (05/10/2024 2:20 AM EDT) White Blood Cell 28.5(H) 4.0 - 9.5 x10(3)/[facility] Red Blood Cell 3.83(L) 4.58 - 5.54 x10(6)/[facility] Hemoglobin 11.4(L) 13.7 - 16.5 g/dL [facility] Hematocrit 34.5(L) 40.5 - 48.5 % [facility] Mean Cell Volume 90.1 82.9 - 93.1 fL [facility] Mean Cell Hemoglobin 29.8 27.5 - 32.1 pg [facility] Mean Cell Hemoglobin Concentration 33.0 32.0 - 35.7 g/dL [facility] Platelet 135(L) 145 - 357 x10(3)/mc L [facility] RDW Standard Deviation 51.9(H) 36.0 - 45.0 fL [facility] RDW coefficient of variation 15.6(H) 11.4 - 13.8 % [facility] Mean Platelet Volume 12.8 7.6 - 12.9 fL [facility] NRBC% auto 0.0 % [facility] NRBC Absolute 0.000 0.000 - 0.000 x10(3)/mc L [facility] Blood 05/10/2024 2:20 AM EDT 05/10/2024 2:36 AM EDT Narrative Resulting Agency Comment Spec In Lab Anita Camacho MD HEMATOLOGY ORDERABLE S [facility] [place] [address] * (ABNORMAL) Hemoglobin A1c (05/10/2024 2:20 AM EDT) Hemoglobin A1c 5.9(H) 4.3 - 5.6 % [facility] Comment: Reference Range: 4.3 - [...] Mellitus, Diabetes Care 2013; 36: Suppl. 1, S66-79 Estimated Average Glucose See note mg/dL [facility] Comment: Estimated Average Glucose not appropriate for patients over 70 years of age. Blood 05/10/2024 2:20 AM EDT 05/10/2024 2:36 AM EDT Narrative Resulting Agency Comment Spec In Lab Tho Dickson MD CHEMISTRY ORDERABLES Performing Organization Address City/[facility]/ZIP Co de Phone Number [facility] [place] [address] * Hepatic Function Panel (05/10/2024 2:20 AM EDT) [facility] Protein, Total 7.6 6.1 - 8.0 g/dL [facility] Albumin 3.3 3.2 - 5.2 g/dL [facility] Aspartate Aminotransferase 21 0 - 39 unit/L [facility] Alanine Aminotransferase 19 0 - 55 unit/L [facility] Alkaline Phosphatase 42 40 - 130 unit/L [facility] Bilirubin, Total 0.5 0.2 - 1.3 mg/dL [facility] Bilirubin, Direct 0.2 0.0 - 0.3 mg/dL [facility] Blood 05/10/2024 2:20 AM EDT 05/10/2024 2:36 AM EDT Narrative Resulting Agency Comment Spec In Lab Tho Dickson MD CHEMISTRY ORDERABLES Performing Organization Address [facility] Co de Phone Number [facility] [place] [place] [address] * (ABNORMAL) Phosphorus (05/10/2024 2:20 AM EDT) [facility] Phosphorus 4.6(H) 2.5 - 4.5 mg/dL [facility] Blood 05/10/2024 2:20 AM EDT 05/10/2024 2:36 AM EDT Narrative Resulting Agency Comment Spec In Lab Tho Dickson MD CHEMISTRY ORDERABLES Performing Organization Address City/[facility] Co de Phone Number [facility] [place] [address] * Magnesium (05/10/2024 2:20 AM EDT) [facility] Magnesium 0.85 0.69 - 1.07 mmol/L [facility] Blood 05/10/2024 2:20 AM EDT 05/10/2024 2:36 AM EDT Narrative Resulting Agency Comment Spec In Lab Tho Dickson MD CHEMISTRY ORDERABLES [facility] [place] [address] * (ABNORMAL) Basic Metabolic Panel (non-fasting) (05/10/2024 2:20 AM EDT) Glucose 196 65 - 199 mg/dL [facility] Comment:Diabetes: >=200 mg/d L plus symptoms Blood Urea Nitrogen 71(H) 10 - 20 mg/dL [facility] Creatinine 3.94(H) 0.80 - 1.50 mg/dL [facility] Sodium 129(L) 135 - 145 mmol/L [facility] Potassium 5.3(H) 3.5 - 5.0 mmol/L [facility] Comment: Please note: ??Patients with WBC >100,000 may have falsely elevated Potassium levels. ??For accurate Potassium quantification in these patients send serum separator tube (gold top) for subsequent determinations. ??Contact the Clinical Chemistry Laboratory if there are any questions. Chloride 93(L) 98 - 107 mmol/L [facility] Carbon Dioxide 24 22 - 31 mmol/L [facility] Anion Gap 12 5 - 15 mmol/L [facility] Calcium 8.5 8.5 - 10.5 mg/dL [facility] Est Glomerular Filtration Rate 16(L) >=60 mL/min/1. 73 m?? [facility] Comment: This patient's estimated GFR [...] Dickson MD CHEMISTRY ORDERABLES Performing Organization Address [facility] de Phone Number [facility] [place] [address] * (ABNORMAL) Prothrombin Time (05/10/2024 2:20 AM EDT) Prothrombin Time 27.9(H) 9.4 - 12.5 sec [facility] International Normalization Ratio 2.5 [facility] Comment: An INR <2.0 indicates [...] HEMATOLOGY ORDERABLE S Performing Organization Address [facility] de Phone Number [facility] [address] * Type and screen ([facility]) (05/10/2024 2:20 AM EDT) ABORH Type O POSITIVE [facility] Patient BB History Not Found [facility] Expires at [id number] on: 05-13-2024 [facility] Ab Screen Interp Negative [facility] Blood 05/10/2024 2:20 AM EDT 05/10/2024 2:20 AM EDT Narrative [facility] - 05/10/2024 2:20 AM EDT This Type and Screen result is only valid at the [facility] Resulting Agency Comment Spec In Lab Tho Dickson MD BLOOD BANK LAB ORDER ANGELIQUE Performing Organization Address City/[facility]/ZIP Co de Phone Number [facility] [place] [address] * (ABNORMAL) Lactate, whole blood, send to lab ([facility]) (05/10/2024 2:20 AM EDT) Lactate WB 2.3(H) 0.5 - 2.2 mmol/L [facility] Blood 05/10/2024 2:20 AM EDT 05/10/2024 2:36 AM EDT Narrative Resulting Agency Comment Spec In Lab Tho Dickson MD CHEMISTRY ORDERABLES Performing Organization Address City/[facility] Co de Phone Number [facility] [place] [address] documented in this encounter Visit Diagnoses Not [...] Procedural area)1759 (DEC Unhold - Provider: Admin Adt)211 (Given - Provider: Saima Quinteros RN) 0832 [...] Procedural area)175 (MAR Unhold - Provider: Admin Adt)1839 (Restarted - Provider: Trice Zhao RN) 1600 (Due)1815 (Due: Stopped) dilTIAZem (Cardizem) tablet 60 mg 60 mg, Oral, EVERY 6 HOURS SCHEDULED, First dose on Sun05/11/24 at 0900, Until Discontinued, HOLD for SBP <90 or HR <60, Routine 0612 (Given - Provider: Pretty Ramirez RN)1300 (Given - Provider: Yg rPince RN)1712 (Given - Provider: Inez Boswell RN)2330 [...] 0831 (Given - Provider: Juan José Lai, JACKEI) furosemide (Lasix) tablet 40 mg (CANCELED) 40 mg, Oral, EVERY MORNING, First dose on Sun05/21/24 at 1115, Until Discontinued, Routine 1115 (Due) 0641 (Given - Provider: Alyssa Villalobos RN)1318 (DEC Hold - Provider: Admin Adt - Reason: Transfer to a Procedural area)175 (DEC Unhold - Provider: Admin Adt) 0620 (Given - Provider: Saima Quinteros RN) furosemide [...] Zhao RN - Reason: Order parameters not met)175 (DEC Unhold - Provider: Admin Adt) 0832 (Given - Provider: Juan José Lai RN)1257 (Given - Provider: Juan José C Ming, RN) insulin lispro (HumaLOG;Admelog) (100 unit/mL) subcutaneous [...] HOURS, First dose (after last modification) on [place] 05/18/24 at 1430, Until Discontinued, Routine 0258 [...] HOURS, First dose (after last modification) on [facility] 05/22/24 at 1230, Until Discontinued, Routine [...] RN) 0819 (Given - Provider: Trice Zhao, JACKIE)131 (DEC [...] Procedural area)175 (DEC Unhold - Provider: Admin Adt)210 (Given - Provider: Saima Quinteros, JACKIE) pantoprazole EC (Protonix) tablet 40 mg 40 mg, Oral, 2 TIMES DAILY, First dose on Sun05/23/24 at 0900, Until Discontinued, DO NOT CRUSH OR OPEN, Routine 0833 (Given - Provider: Juan José Lai, RN) sevelamer carbonate (Renvela) tablet 800 mg 800 mg, Oral, 3 TIMES DAILY WITH MEALS, First dose on Sun05/23/24 at 1230, Until Discontinued, DO NOT CRUSH OR OPEN, Routine 1227 (Given - Provider: Juan José Lai, RN) sodium bicarbonate tablet 650 mg 650 [...] of tube = 37.5 grams.), Routine 1318 ([facility] Hold - Provider: Admin Adt - Reason: Transfer to a Procedural area)1758 ([facility] Unhold - Provider: Admin Adt) melatonin tablet 6 mg 6 mg, Oral, NIGHTLY PRN, Starting on 05/12/24 at 1550, Until Sun05/23/24 at 1815, Insomnia, Routine 1318 ([facility] Hold - Provider: Admin Adt - Reason: Transfer to a Procedural area)1758 ([facility] Unhold - Provider: Admin Adt) [...] Until Sun05/23/24 at 1815, Pain, Routine 1318 ([facility] Hold - Provider: Admin Adt - Reason: Transfer to a Procedural area)1758 ([facility] Unhold - Provider: Admin Adt) simethicone (Gas-X Chew) 80 mg chewable tablet 80 mg 80 mg, Oral, EVERY 6 HOURS PRN, Starting on [place] 05/15/24 at 1812, Until Sun05/23/24 at 1815, Cramping, Routine 1318 ([facility] Hold - Provider: Admin Adt - Reason: Transfer to a Procedural area)1758 (MAR Unhold - Provider: Admin Adt) Linked Groups [...] documented as of this encounter Care Teams [employer] Relationship 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
[2024-06-19 16:55] LABS: Abs Immature Grans 0.04 10^3/uL (0.0-0.06); Absolute Basophil Count 0.01 10^3/uL (0.0-0.2); Absolute Lymphocyte Count 1.08 10^3/uL (1.2-3.4); Absolute Monocyte Count 1.13 10^3/uL (0.1-0.8); Absolute Neutrophil Count 7.74 10^3/uL (1.2-6.7); Basophils % 0.1 %; HCT 32.4 % (40.0-50.0); HGB 10.4 g/dL (13.5-17.5); Immature Grans % 0.4 %; Lymphocytes % 10.6 %; MCH 28.5 pg (27.0-33.0); MCHC 32.1 % (32.0-36.0); MCV 89 fL (80-95); MPV 11.7 fL (8.0-11.0); Monocytes % 11.1 %; Neutrophils % 75.8 %; Platelet Count 297 10^3/uL (130-400); RBC 3.65 10^6/uL (4.36-5.78); RDW 16.5 % (11.8-14.1); RDW-SD 53.4 fL
[2024-06-19 17:09] LABS: ALT 23 U/L (16-63); AST 23 U/L (15-37); Albumin 2.3 g/dL (3.4-5.0); Alkaline Phosphatase 63 U/L (46-116); Anion Gap 5.3 mmol/L (3-11); Bilirubin, Total 0.53 mg/dL (0.2-1.0); C-Reactive Protein 0.75 mg/dL (<or=0.5); CO2 33.7 mmol/L (21.0-32.0); CREATININE 2.5 mg/dL (0.70-1.30); Calcium 9.2 mg/dL (8.5-10.1); Chloride 100 mmol/L (98-107); Estimated GFR 26.96 (mL/min/1.73m2); Glucose 99 mg/dL (74-106); Sodium 139 mmol/L (136-145); Total Protein 7.3 g/dL (6.4-8.2)
[2024-06-19 17:27] LABS: BUN 85 mg/dL (7-18)
== END 2024-06-19 16:31 | disposition home or self-care (01) ==
LOC: LBN 16:30
PROVIDERS: PCP Physician Assistant; Visit Provider Family Medicine
DX: N17.9 Acute kidney failure, unspecified (principal)
CPT/HCPCS: 80053; 85025; 86140

== ENCOUNTER 2024-07-17 16:37 | Outpatient (REF) | payer MEDICARE, SELFPAY ==
[2024-07-17 18:20] LABS: HCT 30.9 % (40.0-50.0); HGB 9.8 g/dL (13.5-17.5); MCH 28.5 pg (27.0-33.0); MCHC 31.7 % (32.0-36.0); MCV 90 fL (80-95); MPV 12.3 fL (8.0-11.0); Platelet Count 283 10^3/uL (130-400); RBC 3.44 10^6/uL (4.36-5.78); RDW 17.2 % (11.8-14.1); RDW-SD 56.9 fL; WBC 7.92 10^3/uL (4.4-10.8)
[2024-07-17 18:37] LABS: Hemoglobin A1C 6.1 % (<5.7)
[2024-07-17 18:54] LABS: Anion Gap 7.4 mmol/L (3-11); CO2 28.6 mmol/L (21.0-32.0); CREATININE 3.2 mg/dL (0.70-1.30); Calcium 9.8 mg/dL (8.5-10.1); Chloride 98 mmol/L (98-107); Estimated GFR 20.05 (mL/min/1.73m2); Glucose 84 mg/dL (74-106); NT-proBNP 2333 pg/mL (<300); Potassium 5.2 mmol/L (3.5-5.1); Sodium 134 mmol/L (136-145)
[2024-07-17 19:14] LABS: BUN 85 mg/dL (7-18)
== END 2024-07-17 16:38 | disposition home or self-care (01) ==
LOC: NCHCN 16:37
PROVIDERS: PCP Physician Assistant; Visit Provider Physician Assistant
DX: D64.9 Anemia, unspecified (principal)
CPT/HCPCS: 80048; 85027; 83036; 83880

== ENCOUNTER 2024-08-20 10:42 | Outpatient (REF) | payer MEDICARE, SELFPAY ==
[2024-08-20 15:39] LABS: HCT 31.5 % (40.0-50.0); HGB 10.4 g/dL (13.5-17.5); MCH 28.4 pg (27.0-33.0); MCV 86 fL (80-95); MPV 12.5 fL (8.0-11.0); Platelet Count 242 10^3/uL (130-400); RBC 3.66 10^6/uL (4.36-5.78); RDW 17.2 % (11.8-14.1); RDW-SD 55.1 fL; WBC 6.12 10^3/uL (4.4-10.8)
[2024-08-20 15:58] LABS: Anion Gap 8.9 mmol/L (3-11); CO2 26.1 mmol/L (21.0-32.0); Calcium 9.7 mg/dL (8.5-10.1); Chloride 101 mmol/L (98-107); Estimated GFR 18.01 (mL/min/1.73m2); Glucose 119 mg/dL (74-106); Potassium 5.1 mmol/L (3.5-5.1); Sodium 136 mmol/L (136-145)
[2024-08-20 16:02] LABS: Iron 69 ug/dL (65-175); Total Iron Binding Capacity 273 ug/dL (250-450); Transferrin Sat 25 % (20-55)
[2024-08-20 16:10] LABS: BUN 127 mg/dL (7-18)
[2024-08-20 16:11] LABS: CREATININE 3.5 mg/dL (0.70-1.30)
== END 2024-08-20 10:43 | disposition home or self-care (01) ==
LOC: NCHCN 10:42
PROVIDERS: PCP Physician Assistant; Visit Provider Physician Assistant
DX: D64.9 Anemia, unspecified (principal); N28.9 Disorder of kidney and ureter, unspecified
CPT/HCPCS: 80048; 85027; 83540; 83550

== ENCOUNTER 2024-09-16 11:36 | Outpatient (REF) | payer MEDICARE, SELFPAY ==
[2024-09-16 15:04] LABS: Anion Gap 10.6 mmol/L (3-11); CO2 24.4 mmol/L (21.0-32.0); CREATININE 2.7 mg/dL (0.70-1.30); Calcium 9.2 mg/dL (8.5-10.1); Chloride 103 mmol/L (98-107); Estimated GFR 24.59 (mL/min/1.73m2); Glucose 109 mg/dL (74-106); Potassium 5.2 mmol/L (3.5-5.1); Sodium 138 mmol/L (136-145)
[2024-09-16 15:11] LABS: BUN 100 mg/dL (7-18)
== END 2024-09-16 11:37 | disposition home or self-care (01) ==
LOC: NCHCN 11:36
PROVIDERS: PCP Physician Assistant; Visit Provider Physician Assistant
DX: N28.9 Disorder of kidney and ureter, unspecified (principal)
CPT/HCPCS: 80048; 85018

== ENCOUNTER 2024-11-27 09:45 | Outpatient (REF) | payer MEDICARE, SELFPAY ==
[2024-11-27 15:20] LABS: HCT 30.9 % (40.0-50.0); HGB 10.3 g/dL (13.5-17.5); MCH 29.6 pg (27.0-33.0); MCHC 33.3 % (32.0-36.0); MCV 89 fL (80-95); MPV 11.8 fL (8.0-11.0); Platelet Count 266 10^3/uL (130-400); RBC 3.48 10^6/uL (4.36-5.78); RDW 15.5 % (11.8-14.1); RDW-SD 50.4 fL; WBC 8.61 10^3/uL (4.4-10.8)
[2024-11-27 15:27] LABS: Iron 87 ug/dL (65-175); Total Iron Binding Capacity 278 ug/dL (250-450); Transferrin Sat 31 % (20-55)
[2024-11-27 15:37] LABS: Anion Gap 7.4 mmol/L (3-11); CO2 25.6 mmol/L (21.0-32.0); CREATININE 2.6 mg/dL (0.70-1.30); Calcium 9.9 mg/dL (8.5-10.1); Chloride 101 mmol/L (98-107); Estimated GFR 25.72 (mL/min/1.73m2); Glucose 94 mg/dL (74-106); NT-proBNP 1224 pg/mL (<300); Potassium 5.5 mmol/L (3.5-5.1); Sodium 134 mmol/L (136-145)
[2024-11-27 15:42] LABS: Hemoglobin A1C 5.8 % (<5.7)
[2024-11-27 15:44] LABS: BUN 106 mg/dL (7-18)
== END 2024-11-27 09:46 | disposition home or self-care (01) ==
LOC: NCHCN 09:45
PROVIDERS: PCP Physician Assistant; Visit Provider Physician Assistant
DX: E11.9 Type 2 diabetes mellitus without complications (principal); I50.9 Heart failure, unspecified
CPT/HCPCS: 80048; 85027; 83036; 83540; 83550; 83880

== ENCOUNTER 2025-02-13 10:19 | Outpatient (REF) | payer MEDICARE, SELFPAY ==
[2025-02-13 15:17] LABS: HCT 29.3 % (40.0-50.0); HGB 9.6 g/dL (13.5-17.5); MCH 30.8 pg (27.0-33.0); MCHC 32.8 % (32.0-36.0); MCV 94 fL (80-95); Platelet Count 237 10^3/uL (130-400); RBC 3.12 10^6/uL (4.36-5.78); RDW 15.1 % (11.8-14.1); RDW-SD 51.8 fL; WBC 8.03 10^3/uL (4.4-10.8)
[2025-02-13 15:41] LABS: Anion Gap 9.4 mmol/L (3-11); CO2 23.6 mmol/L (21.0-32.0); CREATININE 3.2 mg/dL (0.70-1.30); Calcium 9.3 mg/dL (8.5-10.1); Chloride 98 mmol/L (98-107); Estimated GFR 20.05 (mL/min/1.73m2); Glucose 93 mg/dL (74-106); NT-proBNP 1298 pg/mL (<300); Potassium 5.4 mmol/L (3.5-5.1); Sodium 131 mmol/L (136-145)
[2025-02-13 15:53] LABS: BUN 99 mg/dL (7-18)
[2025-02-13 16:34] LABS: Hemoglobin A1C 5.7 % (<5.7)
== END 2025-02-13 10:20 | disposition home or self-care (01) ==
LOC: NCHCN 10:19
PROVIDERS: PCP Physician Assistant; Visit Provider Physician Assistant
DX: E11.9 Type 2 diabetes mellitus without complications (principal); I50.9 Heart failure, unspecified; I10 Essential (primary) hypertension
CPT/HCPCS: 80048; 85027; 83036; 83880

== ENCOUNTER 2025-06-02 16:31 | Outpatient (REF) | payer MEDICARE, SELFPAY ==
[2025-06-02 15:19] LABS: HCT 29.1 % (40.0-50.0); HGB 9.2 g/dL (13.5-17.5); MCH 29.4 pg (27.0-33.0); MCHC 31.6 % (32.0-36.0); MCV 93 fL (80-95); MPV 11.9 fL (8.0-11.0); Platelet Count 273 10^3/uL (130-400); RBC 3.13 10^6/uL (4.36-5.78); RDW 14.6 % (11.8-14.1); RDW-SD 49.4 fL; WBC 8.36 10^3/uL (4.4-10.8)
[2025-06-02 15:35] LABS: Hemoglobin A1C 5.6 % (<5.7)
[2025-06-02 15:47] LABS: Anion Gap 9.7 mmol/L (3-11); CO2 27.3 mmol/L (21.0-32.0); Calcium 9.5 mg/dL (8.5-10.1); Chloride 100 mmol/L (98-107); Estimated GFR 25.57 (mL/min/1.73m2); Glucose 76 mg/dL (74-106); NT-proBNP 1576 pg/mL (<300); Sodium 137 mmol/L (136-145)
[2025-06-02 15:52] LABS: BUN 84 mg/dL (7-18); Potassium 5.7 mmol/L (3.5-5.1)
== END 2025-06-02 16:32 | disposition home or self-care (01) ==
LOC: NCHCN 16:31
PROVIDERS: PCP Physician Assistant; Visit Provider Physician Assistant
DX: E11.9 Type 2 diabetes mellitus without complications (principal); I50.9 Heart failure, unspecified; I48.91 Unspecified atrial fibrillation
CPT/HCPCS: 80048; 85027; 83036; 83880

== ENCOUNTER 2025-09-02 10:39 | Outpatient (REF) | payer MEDICARE, SELFPAY ==
[2025-09-02 15:11] LABS: HCT 28.2 % (40.0-50.0); HGB 9.2 g/dL (13.5-17.5); MCH 29.5 pg (27.0-33.0); MCHC 32.6 % (32.0-36.0); MCV 90 fL (80-95); MPV 11.7 fL (8.0-11.0); Platelet Count 230 10^3/uL (130-400); RBC 3.12 10^6/uL (4.36-5.78); RDW 15.1 % (11.8-14.1); RDW-SD 50.0 fL; WBC 8.04 10^3/uL (4.4-10.8)
[2025-09-02 15:50] LABS: Hemoglobin A1C 5.7 % (<5.7)
[2025-09-02 16:23] LABS: Iron 36 ug/dL (65-175)
[2025-09-02 17:22] LABS: Microalb ug/mg Crea 24.1 ug/mg Cr
[2025-09-02 17:34] LABS: ALT 18 U/L (10-49); AST 16 U/L (<34); Albumin 4.0 g/dL (3.4-5.0); Alkaline Phosphatase 52 U/L (46-116); Anion Gap 10.8 mmol/L (3-11); BUN 109 mg/dL (9-23); Bilirubin, Total 0.30 mg/dL (0.2-1.2); CO2 21.2 mmol/L (20.0-31.0); Calcium 9.5 mg/dL (8.3-10.6); Chloride 101 mmol/L (98-107); Cholesterol 120 mg/dL (<200); Glucose 84 mg/dL (74-106); HDL Cholesterol 39 mg/dL (>40); Potassium 5.2 mmol/L (3.5-5.1); Sodium 133 mmol/L (136-145); Total Protein 7.5 g/dL (5.7-8.2)
== END 2025-09-02 10:40 | disposition home or self-care (01) ==
LOC: NCHCN 10:39
PROVIDERS: PCP Physician Assistant; Visit Provider Physician Assistant
DX: E11.9 Type 2 diabetes mellitus without complications (principal); I50.9 Heart failure, unspecified; D64.9 Anemia, unspecified; I10 Essential (primary) hypertension
CPT/HCPCS: 80053; 80061; 85027; 82043; 82570; 83036; 83540; 83880